=== PATIENT | male | born 1950 | race American Indian/Alaskan Native ===

== ENCOUNTER 2018-02-15 11:10 | Emergency (ER) | payer MEDICARE, OTHER ==
[~2018-02-15] VITALS: Ht 175.3 cm; Wt 113.4 kg
[~2018-02-15 11:10] MED LIST: ALLOPURINOL100 MG PO; BLOOD GLUCOSE1 EACH MC; CLOTRIM ANTIFUN15 GM XX; COL-RITE100 MG PO; COUMADIN5 MG PO; CYCLOBENZAPRINE10 MG PO; DAILY MULTIPLE1 EACH PO; DESONIDE15 GM TP; DIALYVITE V5000 UNIT PO; FOLIC ACID1 MG PO; GLIPIZIDE5 MG PO; HYDROCHLOROTHIA25 MG PO; LEVOTHROID50 MCG PO; LISINOPRIL10 MG PO; METOPROLOL TART25 MG PO; MORPHINE SULFAT15 MG PO; MS CONTIN60 MG PO; NORCO 5-325 TA1 EACH PO; TRIAMCINOLONE A15 G1 TOP; ZOCOR10 MG PO
--- NOTE | 2018-02-15 18:49 | EKG ---
[facility] [address] [place], [place] [address] Signed Sinus tachycardia Possible Left atrial enlargement Left axis deviation Incomplete right bundle branch block Inferior infarct , age undetermined Abnormal ECG No previous ECGs available Confirmed by NEW AKINS MD ([id number]) on 02/15/2018 6:49:13 PM Electronically Signed By: NEW AKINS MD 02/15/18 1849 PATIENT NAME: DENISEJOSE RAFAEL SIDNEY Electrocardiogram DATE OF : 50 PHYSICIAN: NEW AKINS MD REPORT #: [id number] REPORT IS CONFIDENTIAL AND NOT TO BE RELEASED WITHOUT AUTHORIZATION
== END 2018-02-15 13:45 | disposition short-term general hospital (02) ==
LOC: ED 11:10
DX: S12.100A Unspecified displaced fracture of second cervical vertebra, initial encounter for closed fracture (principal); E11.9 Type 2 diabetes mellitus without complications; I10 Essential (primary) hypertension; Z88.0 Allergy status to penicillin; Z88.5 Allergy status to narcotic agent; Z88.2 Allergy status to sulfonamides; Z88.8 Allergy status to other drugs, medicaments and biological substances; Z79.01 Long term (current) use of anticoagulants; Z79.899 Other long term (current) drug therapy; W19.XXXA Unspecified fall, initial encounter; Y93.E1 Activity, personal bathing and showering
CPT/HCPCS: 36415; 70450; 71045; 72125; 80053; 84484; 85025; 85610; 85730; 93005; 93010; 96374; 96375; 99285; J1170; J2405

== ENCOUNTER 2018-11-03 11:08 | Emergency (ER) | payer MEDICARE, OTHER ==
[~2018-11-03] VITALS: Ht 175.3 cm; Wt 112.0 kg
--- OUTSIDE RECORDS SUMMARY | ~2018-11-03 | XMS | Clinical Summary ---
Demographics + + + | Address | [address] | | | [place] [address] | + + + | Home Phone | | + + + | Preferred Language | Unknown | + + + | Marital Status | Single | + + + | Jain Affiliation | BAP | + + + | Race | or | + + + | Ethnic Group | Not or | + + + Author + + + | Author | [facility] | + + + | Organization | [facility] | + + + | Address | Unknown | + + + | Phone | Unavailable | + + + Support + + +---------+ + | Name | Relationship | Address | Phone | + + +---------+ + | LIVIER CISNEROS | ECON | Unknown | | + + +---------+ + | RAJAN ELLIS | ECON | Unknown | Unavailable | + + +---------+ + Care Team Providers + +------+ + | Care Portfolio Architect Name | Role | Phone | + +------+ + | Scooby Mcclure MD | PP | | + +------+ + Source Comments AUTUMN is fully live on both EpicCare Ambulatory and EpicCare InPatient.[facility] Allergies + + + + + + | Active Allergy | Reactions | Severity | Noted | Comments | | | | | Date | | + + + + + + | Codeine | Rash | | 05/23/20 | | | | | | 09 | | + + + + + + | Sitagliptin | Unknown | | 02/23/20 | Per pt's MD | | | | | 18 | | + + + + + + | Metformin | Unknown | | 02/23/20 | Per pt's home MD | | | | | 18 | | + + + + + + | Penicillins | Rash | | 05/23/20 | | | | | | 09 | | + + + + + + | Rosuvastatin | Unknown | | 02/23/20 | Per pt's MD | | | | | 18 | | + + + + + + | Sulfa (Sulfonamide | Diarrhea, Rash | | 12/15/19 | | | Antibiotics) | | | 13 | | + + + + + + | Trimethoprim | Diarrhea | | 12/15/19 | That lasted a week | | | | | 13 | | + + + + + + Current Medications + + +--------+---------+------+------+-------+ | Prescription | Sig. | Disp. | Refills | Star | End | Statu | | | | | | t | Date | s | | | | | | Date | | | + + +--------+---------+------+------+-------+ | MEDICAL MARIJUANA | once daily. 3 grams | | | | | Activ | | | per day | | | | | e | + + +--------+---------+------+------+-------+ | levothyroxine 50 | Take 50 mcg by mouth | | | | | Activ | | mcg Oral tablet | before breakfast. | | | | | e | + + +--------+---------+------+------+-------+ | insulin glargine | Inject 66 Units | | | | | Activ | | 100 unit/mL | under the skin | | | | | e | | subcutaneous | (SUBC) once daily at | | | | | | | solution | bedtime. | | | | | | + + +--------+---------+------+------+-------+ | morphine ER 60 mg | Take 60 mg by mouth | | | | | Activ | | oral tablet extended | every twelve hours. | | | | | e | | release | | | | | | | + + +--------+---------+------+------+-------+ | morphine 15 mg | Take 15 mg by mouth | | | | | Activ | | oral tablet | four times daily as | | | | | e | | | needed. | | | | | | + + +--------+---------+------+------+-------+ | ranitidine 150 mg | Take 150 mg by mouth | | | | | Activ | | oral tablet | two times daily. | | | | | e | + + +--------+---------+------+------+-------+ | | Take 1 tablet by | | | | | Activ | | multivitamin-mineral | mouth once daily. | | | | | e | | s oral tablet | | | | | | | + + +--------+---------+------+------+-------+ | | Take 25 mg by mouth | | | | | Activ | | hydroCHLOROthiazide | once daily. | | | | | e | | 25 mg oral tablet | | | | | | | + + +--------+---------+------+------+-------+ | lisinopril 20 mg | Take 20 mg by mouth | | | | | Activ | | oral tablet | once daily. | | | | | e | + + +--------+---------+------+------+-------+ | folic acid 1 mg | Take 0.5 mg by mouth | | | | | Activ | | oral tablet | once daily. | | | | | e | + + +--------+---------+------+------+-------+ | docusate sodium | Take 100 mg by mouth | | | | | Activ | | 100 mg oral capsule | once daily as | | | | | e | | | needed. | | | | | | + + +--------+---------+------+------+-------+ | cholecalciferol | Take 2,000 Units by | | | | | Activ | | (Vitamin D3) 1,000 | mouth once daily. | | | | | e | | unit oral tablet | | | | | | | + + +--------+---------+------+------+-------+ | loratadine 10 mg | Take 10 mg by mouth | | | | | Activ | | oral tablet | once daily as | | | | | e | | | needed. | | | | | | + + +--------+---------+------+------+-------+ | insulin aspart | Inject under the | | | | | Activ | | U-100 100 unit/mL | skin (SUBC) three | | | | | e | | subcutaneous | times daily before | | | | | | | solution | meals. 4-6 units | | | | | | | | with meal and | | | | | | | | supplemental dose | | | | | | | | based on blood | | | | | | | | glucose | | | | | | + + +--------+---------+------+------+-------+ | acetaminophen 500 | Take 2 tablets by | 30 | 0 | 07/0 | | Activ | | mg oral tablet | mouth every eight | tablet | | 3/20 | | e | | | hours. | | | 18 | | | + + +--------+---------+------+------+-------+ | cholecalciferol | Take 1 tablet by | 30 | 0 | 07/0 | | Activ | | (Vitamin D3) 2,000 | mouth once daily. | tablet | | 4/20 | | e | | unit oral tablet | | | | 18 | | | + + +--------+---------+------+------+-------+ | gabapentin 100 mg | Take 2 capsules by | | | 07/0 | | Activ | | oral capsule | mouth once daily at | | | 3/20 | | e | | | bedtime. | | | 18 | | | + + +--------+---------+------+------+-------+ | HYDROmorphone | Take 1-2 tablets by | 30 | 0 | 07/0 | | Activ | | (DILAUDID) 2 mg oral | mouth every three | tablet | | 3/20 | | e | | tablet | hours as needed for | | | 18 | | | | | severe pain. | | | | | | + + +--------+---------+------+------+-------+ | rivaroxaban 20 mg | Take 1 tablet by | 30 | 0 | 07/2 | | Activ | | oral tablet | mouth once daily | tablet | | 6/20 | | e | | | with breakfast. | | | 18 | | | + + +--------+---------+------+------+-------+ Active Problems + + + | Problem | Noted Date | + + + | Closed fracture of second cervical vertebra (HCC) | 02/15/2018 | + + + | Closed displaced fracture of second cervical vertebra, | 02/15/2018 | | unspecified fracture morphology, initial encounter (HCC) | | + + + | Right shoulder pain | 11/08/2014 | + + + | Heterotopic ossification of bone | 03/14/2014 | + + + | Heterotopic ossification | 03/14/2014 | + + + | Hypertension | 03/16/2013 | + + + | Diabetes mellitus (HCC) | 03/16/2013 | + + + | Chronic pain | 03/16/2013 | + + + | Pruritus | 03/16/2013 | + + + | Cholecystitis | 03/10/2013 | + + + | Ventral hernia | 03/10/2013 | + + + | Osteoarthrosis, hip | 05/23/2009 | + + + + + | Overview: Right hip | + + + + + | Ankylosing spondylitis (HCC) | 05/23/2009 | + + + | Antiphospholipid antibody syndrome (HCC) | | + + + | Difficult intubation | | + + + + + | Overview: glidescope used for intubation | + + Immunizations + + + + | Name | Dates Previously Given | Next Due | + + + + | Ppd (tuberculin | 05/18/2013, 05/16/2013 | | | Purified Protein | | | | Derivative) | | | + + + + Family History + + +------+ + | Medical History | Relation | Name | Comments | + + +------+ + | Heart Disease | Father | | | + + +------+ + | Cancer | Mother | | mesothelioma | + + +------+ + | Cancer | Other | | no colon cancer | + + +------+ + | GI | Neg Hx | | no IBD | + + +------+ + + +------+ + + | Relation | Name | Status | Comments | + +------+ + + | Father | | | CAD | + +------+ + + | Mother | | | mesothelioma | + +------+ + + | Other | | | | + +------+ + + Social History + + + +--------+ + | Tobacco Use | Types | Packs/Day | Years | Date | | | | | Used | | + + + +--------+ + | Former Smoker | Cigarettes | 0.5 | 2 | Quit: 12/14/1981 | + + + +--------+ + + +---+---+---+ | Smokeless Tobacco: | | | | | Never Used | | | | + +---+---+---+ + + | Tobacco Cessation: Counseling Given: Yes | + + + + +---------+ + | Alcohol Use | Drinks/We | oz/Week | Comments | | | ek | | | + + +---------+ + | Yes | | | occasional use | + + +---------+ + + + + | Sex Assigned at | Date Recorded | | | | + + + | Not on file | | + + + Last Filed Vital Signs + + + + | Vital Sign | Reading | Time Taken | + + + + | Blood Pressure | 146/63 | 04/06/2018 11:21 AM PDT | + + + + | Pulse | 78 | 04/06/2018 11:21 AM PDT | + + + + | Temperature | 36.6 C (97.9 F) | 02/22/2018 4:42 PM PDT | + + + + | Respiratory Rate | 16 | 02/22/2018 4:42 PM PDT | + + + + | Oxygen Saturation | 100% | 02/22/2018 4:42 PM PDT | + + + + | Inhaled Oxygen | - | - | | Concentration | | | + + + + | Weight | 110.2 kg (243 lb) | 04/06/2018 11:21 AM PDT | + + + + | Height | 177.8 cm (5' 10") | 04/06/2018 11:21 AM PDT | + + + + | Body Mass Index | 34.87 | 04/06/2018 11:21 AM PDT | + + + + Plan of Treatment + + + + + | Health Maintenance | Due Date | Last Done | Comments | + + + + + | Influenza (Flu) | | | | | vaccination (#1) | 8 | | | + + + + + | Pneumococcal (Adult) | | 01/12/2018 | | | (2 of 2 - PPSV23) | 9 | | | + + + + + Implants + +------+--------+ +--------+--------+--------+ | Implanted | Type | Area | Manufacture | Device | Expira | Model | | | | | r | | tion | / | | | | | | Identi | Date | Serial | | | | | | fier | | / Lot | + +------+--------+ +--------+--------+--------+ | Continuum Acetabular System | | Left: | MARI | | 04/22/ | 5 | | Mje Kevin Plug - | | Hip | | | 2021 | - | | [id number]: Qty: 1 on | | | | | | / | | 05/09/2012 by Jorge Walker, | | | | | | /[id number] | | MD | | | | | | 905 | + +------+--------+ +--------+--------+--------+ | Trabecular Metal Shell | | Left: | MARI | | 03/21/ | | | 58mImplanted: Qty: 1 on | | Hip | | | 2021 | 7058- | | 05/09/2012 by Jorge Walker, | | | | | | 01 / | | MD | | | | | | /[id number] | | | | | | | | 366 | + +------+--------+ +--------+--------+--------+ | Polyethelene Neutral | | Left: | MARI | | 01/19/ | 00-5 | | LinerImplanted: Qty: 1 on | | Hip | | | 2016 | - | | 05/09/2012 by Jorge Walker, | | | | | | 36 / | | MD | | | | | | /[id number] | | | | | | | | 117 | + +------+--------+ +--------+--------+--------+ | Trabecular Metal Femoral Stem | | Left: | MARI | | 02/19/ | 00-786 | | 13mmImplanted: Qty: 1 on | | Hip | | | 2021 | 013- | | 05/09/2012 by Jorge Walker, | | | | | | 20 / | | MD | | | | | | /[id number] | | | | | | | | 333 | + +------+--------+ +--------+--------+--------+ | Femoral Head Ceramic | | Left: | MARI | | 09/21/ | 00-877 | | 36mm/-3.5Implanted: Qty: 1 on | | Hip | | | 2021 | 5-036- | | 05/09/2012 by Jorge Walker | | | | | | 01 / | | MD Royal | | | | | | /[id number] | | | | | | | | 43 | + +------+--------+ +--------+--------+--------+ | Mari Total Hip Cap | | | | | | | | ChargeImplanted: Qty: 1 on | | | | | | | | 05/09/2012 | | | | | | | + +------+--------+ +--------+--------+--------+ | Stem Tm Primary 13mm Extended | | Right: | MARI | | 11/20/ | 00-786 | | - [id number]: Qty: 1 | | Hip | | | 2022 | 4-013- | | on 03/12/2014 by Denise, | | | | | | 20 / | | Jorge Paige MD | | | | | | /[id number] | | | | | | | | 757 | + +------+--------+ +--------+--------+--------+ | Femoral Head Biolox Delta | | Right: | MARI | | 06/22/ | 00-877 | | 36mm -3.5mm - | | Hip | | | 2023 | 5-036- | | [id number]: Qty: 1 on | | | | | | / | | 03/12/2014 by Jorge Walker | | | | | | /[id number] | | MD Royal | | | | | | 12 | + +------+--------+ +--------+--------+--------+ | Tm Por St/Tm Cup/ Xlpe Ln/Cer | | | | | | | | HdImplanted: Qty: 1 on | | | | | | /98-00 | | 03/12/2014 | | | | | | 01-426 | | | | | | | | -03 / | + +------+--------+ +--------+--------+--------+ | Continuum Acetabular System | | Right: | MARI | | 02/19/ | 00-875 | | Shay Moon - | | Hip | | | 2023 | 7-000- | | [id number]: Qty: 1 on | | | | | | / | | 03/12/2014 by Jorge Walker | | | | | | /[id number] | | MD Royal | | | | | | 971 | + +------+--------+ +--------+--------+--------+ | Continuum Acetabular System | | Right: | MARI | | / | 00-875 | | Trabecular Metal Shell With | | Hip | | | 4 | 7-058- | | Cluster Holes 58mm Ll - | | | | | | 01 / | | [id number]: Qty: 1 on | | | | | | /56108 | | 03/12/2014 by Jorge Walker | | | | | | 427 | | MD Royal | | | | | | | + +------+--------+ +--------+--------+--------+ | Continuum Longevity Neutral | | Right: | MARI | | 09/22/ | 8751-1 | | Liner Ll 36 X 58 - | | Hip | | | 2018 | 3-36 / | | [id number]: Qty: 1 on | | | | | | | | 03/12/2014 by Jorge Walker | | | | | | /[id number] | | MD Royal | | | | | | 246 | + +------+--------+ +--------+--------+--------+ | 50 Mm PlateImplanted: Qty: 1 | | N/A: | NANCI & | | | 04.615 | | on 02/18/2018 by Pablito Barroso | | Spine | NANCI | | | .601 / | | MD Soha | | | DEPKENDAL | | | / | + +------+--------+ +--------+--------+--------+ | 240 Mm RodsImplanted: Qty: 2 | | N/A: | NANCI & | | | 04.615 | | on 02/18/2018 by Pablito Barroso | | Spine | NANCI | | | .655 / | Kaylyn Hoyos MD | | | MAVIS | | | / | + +------+--------+ +--------+--------+--------+ | Screw Bone 4.5mm 10mm | | N/A: | SYNTHES [place] | | | 04.601 | | Titanium Occipitocervical | | Spine | | | | .110 / | | Spine Nonsterile Fusion | | | | | | / | | System - [id number]: | | | | | | | | Qty: 1 on 02/18/2018 by | | | | | | | | Pablito Barroso MD | | | | | | | + +------+--------+ +--------+--------+--------+ | Screw Bone 4.5mm 12mm | | N/A: | SYNTHES [place] | | | 04.601 | | Titanium Occipitocervical | | Spine | | | | .112 / | | Spine Nonsterile Fusion | | | | | | / | | System - [id number]: | | | | | | | | Qty: 1 on 02/18/2018 by | | | | | | | | Pablito Barroso MD | | | | | | | + +------+--------+ +--------+--------+--------+ | Screw Bone 4.5mm 14mm | | N/A: | SYNTHES [place] | | | 04.601 | | Titanium Occipitocervical | | Spine | | | | .114 / | | Spine Nonsterile Fusion | | | | | | / | | System - [id number]: | | | | | | | | Qty: 1 on 02/18/2018 by | | | | | | | | Pablito Barroso MD | | | | | | | + +------+--------+ +--------+--------+--------+ | Screw Bone 4.5mm 8mm Synapse | | N/A: | SYNTHES [place] | | | 04.614 | | Titanium Spine Lock | | Spine | | | | .508 / | | Nonsterile - | | | | | | / | | [id number]: Qty: 2 on | | | | | | | | 02/18/2018 by Pablito Barroso | | | | | | | | MD Soha | | | | | | | + +------+--------+ +--------+--------+--------+ | Small ConnectorImplanted: | | N/A: | NANCI & | | | 04.615 | | Qty: 2 on 02/18/2018 by | | Bruce | NANCI | | | .538 / | | Pablito Barroso MD | | | DEPUY | | | / | + +------+--------+ +--------+--------+--------+ | Large ConnectorImplanted: | | N/A: | NANCI & | | | 04.615 | | Qty: 2 on 02/18/2018 by | | Bruce | NANCI | | | .565 / | | Pablito Barroso MD | | | DEPUY | | | / | + +------+--------+ +--------+--------+--------+ | Sealant Hemostatic Floseal | | N/A: | NGUYEN | | 07/20/ | [id number] | | Matrix Needle Free Adapter | | Spine | HEALTHCARE | | 2019 | 8 / | | 5ml - [id number]: | | | | | | /HA180 | | Qty: 1 on 02/18/2018 by | | | | | | 573 | | Pablito Barroso MD | | | | | | | + +------+--------+ +--------+--------+--------+ Results Not on filefrom Last 3 Months Insurance + +--------+ +--------+ + + | Payer | Benefi | Subscriber | Type | Phone | Address | | | t Plan | ID | | | | | | / | | | | | | | Group | | | | | + +--------+ +--------+ + + | MEDICARE | MEDICA | xxxxxxxxxx | Medica | [phone] | [address] | | | RE A & | | re | [phone] | [place] [address] | | | B | | | | | + +--------+ +--------+ + + | [place]ICAID [place] | OHP | xxxxxxxx | Medica | [phone] | [address] [address] | | | PLUS | | id | [phone] | [place] [address] | | | OPEN | | | | | | | CARD | | | | | + +--------+ +--------+ + + | [facility] | | xxxx | Agency | | | | SERVICE | | | | | | | | HEALTH | | | | | | | | | | | | | | SERVIC | | | | | | | E | | | | | + +--------+ +--------+ + + + +--------+ +--------+ + + | Guarantor Name | Accoun | Relation to | Date | Phone | Billing Address | | | t Type | Patient | of | | | | | | | | | | + +--------+ +--------+ + + | JORGE L CISNEROS | Person | Self [birth year] | Home: | [address] | | | al/Fam | | 1950 | [phone] | [place] [address] | | | blaire | | | [phone] | | + +--------+ +--------+ + + | JORGE L CISNEROS | Agency | Self | [birth year] | Home: | [address] | | | | | 1950 | [phone] | [place] [address] | | | | | | [phone] | | + +--------+ +--------+ + +
--- OUTSIDE RECORDS SUMMARY | ~2018-11-03 | XMS | Clinical Summary ---
Demographics + + + | Address | [address] | | | [place] [address] | + + + | Home Phone | | + + + | Preferred Language | Unknown | + + + | Marital Status | Single | + + + | Orthodoxy Affiliation | BAP | + + + [...] Team Providers + +------+ + | Care Maintenance Data Analyst Name | Role | Phone | + +------+ + | Scooby Mcclure MD | PP | | + +------+ + Source Comments AUTUMN is fully live on both EpicCare Ambulatory and EpicCare InPatient.[facility] Allergies + + + + + + [...] | | 2021 | - | | [id number]: Qty: 1 on | | | | | | / | | 05/09/2012 by Jorge Walker, | | | | | | /11601 | | MD | | | | [...] MD | | | | | | /76628 | | | | | | | [...] MD | | | | | | /82281 | | | | | | | [...] MD | | | | | | /54390 | | | | | | | [...] Royal | | | | | | /[address] | | | | | | | [...] | 11/20/ | 00-786 | | - [id number]: Qty: 1 | | Hip | | | 2022 | 4-013- | | on 03/12/2014 by Denise, | | | | | | 20 / | | Jorge Paige MD | | | | | | /[address]82 | | | | | | | | 757 | + +------+--------+ +--------+--------+--------+ | Femoral Head Biolox Delta | | Right: | MARI | | 06/22/ | 00-877 | | 36mm -3.5mm - | | Hip | | | 2023 | 5-036- | | [id number]: Qty: 1 on | | | | | | / | | 03/12/2014 by Jorge Walker | | | | | | /76998 | | MD Royal | | | [...] | | 2023 | 7-000- | | [id number]: Qty: 1 on | | | | | | / | | 03/12/2014 by Jorge Walker | | | | | | /39004 | | MD Royal | | | | | | 971 | + +------+--------+ +--------+--------+--------+ | Continuum Acetabular System | | Right: | MARI | | / | 00-875 | | Trabecular Metal Shell With | | Hip | | | 4 | 7-058- | | Cluster Holes 58mm Ll - | | | | | | 01 / | | [id number]: Qty: 1 on | | | | | | /[id number] | | 03/12/2014 by Jorge Walker | | | | | | 427 | | MD Royal | | | | | | | + +------+--------+ +--------+--------+--------+ | Continuum Longevity Neutral | | Right: | MARI | | 09/22/ | 8751-1 | | Liner Ll 36 X 58 - | | Hip | | | 2018 | 3-36 / | | [id number]: Qty: 1 on | | | | | | | | 03/12/2014 by Jorge Walker | | | | | | /12560 | | MD Royal | | | | | | 246 | + +------+--------+ +--------+--------+--------+ | 50 Mm PlateImplanted: Qty: 1 | | N/A: | ANNCI & | | | 04.615 | | [...] | | / | | System - [id number]: | | | | | | | [...] | | / | | System - [id number]: | | | | | | | [...] | | / | | System - [id number]: | | | | | | | [...] | | | | / | | [id number]: Qty: 2 on | | | | [...] N/A: | NGUYEN | | 07/20/ | [id number] | | Matrix Needle Free Adapter | | Spine | HEALTHCARE | | 2019 | 8 / | | 5ml - [id number]: | | | | | | /HA180 [...] | re | [phone] | [place] [address] | | | B | | | | | + +--------+ +--------+ + + | MEDICAID [place] | OHP | xxxxxxxx | Medica | [phone] | [address] [address] | | | PLUS | | id | [phone] | [place] [address] | | | OPEN | | | | | | | CARD | | | | | + +--------+ +--------+ + + | [facility] | | xxxx | Agency | | [...] | 1950 | [phone] | [place] [address] | | | [place] | | | [phone] | | + +--------+ +--------+ + + | JORGE L CISNEROS | Agency | Self | [birth year] | Home: | [address] | | | | | 1950 | [phone] | [place] [address] | | | | | | [address] | | + +--------+ +--------+ + +
--- OUTSIDE RECORDS SUMMARY | ~2018-11-03 | XMS | Clinical Summary ---
Demographics + + + | Address | [address] | | | [place] [address] | + + + | Home Phone | | + + + | Preferred Language | Unknown | + + + | Marital Status | Single | + + + | Latter Day Affiliation | 1041 | + + + | Race | Unknown | + + + | Ethnic Group | Unknown | + + + Author + + + | Author | [facility] | + + + | Organization | [facility] | + + + | Address | Unknown | + + + | Phone | Unavailable | + + + Support + + +---------+ + | Name | Relationship | Address | Phone | + + +---------+ + | Di Cisneros | ECON | Unknown | | + + +---------+ + Care Team Providers + +------+ + | Care Audiovisual Lead Technician Name | Role | Phone | [...] Noted Date | + + + | Moderate dementia [...] mass | 01/07/2017 | + + + Social History + +-------+ [...] + + + | Blood Pressure | 156/74 | 05/05/2018 10:15 AM PDT | + + + + | Pulse | 71 | 05/05/2018 10:15 AM PDT | + + + + | Temperature | 36.6 C (97.8 F) | 01/22/2017 11:46 AM PDT | + + + + | Respiratory Rate | 18 | 01/22/2017 11:46 AM PDT | + + + + | Oxygen Saturation | 97% | 05/05/2018 10:15 AM PDT | + + + + | Inhaled Oxygen | - | - | | Concentration | | | + + + + | Weight | 116.8 kg (257 lb 6.4 | 05/05/2018 10:15 AM PDT | | | oz) | | + + + + | Height | 177.8 cm (5' 10") | 05/05/2018 10:15 AM PDT | + + + + | Body Mass Index | 36.93 | 05/05/2018 10:15 AM PDT | + + + + Plan of Treatment +--------+---------+ + + + | Date | Type | Specialty | Care Team | Description | +--------+---------+ + + + | 11/09/ | Office | | [facility] | | | 2018 | Visit | | MD [address] | | | | | | Celia Kearns | | | | | | [facility] [place] [address] | | | | | | [phone] | | | | | | | | +--------+---------+ + + + + + + + [...] Vaccine: Influenza | | | | | (#1) | 8 | | | + [...] | 10/22/ | 8103.0 | | - [id number]: Qty: 1 | | | MEDICAL - | | 2019 | 210S / | | on 01/09/2017 by Kadi, | | | GLBU | | | | | Mendez Nicole [place] | | | | | | /[id number] | | | | | | | | [id number] | + +------+------+ +--------+--------+--------+ | Quartex Lordotic [...] GLOBUS | | | 8115.0 | | [id number] - SnaImplanted: | | | MEDICAL - [...] | | 10/05/ | 8115.0 | | [id number] - | | | MEDICAL - | | 2019 | 120S / | | [id number]: Qty: 1 on | | | GLBU | | | | | 01/09/2017 by Kadi, | | | | | | /[id number] | | Mendez Nicole MD | | | | | | 4CG | + +------+------+ +--------+--------+--------+ | Graft Duragen 1x1in - | | | INTEGRA | | / | ID-110 | | [id number]: Qty: 1 on | | | LIFESCIENCE | | 2020 | 1 / | | 01/09/2017 by Kadi, | | | S [place] - | | | /[id number] | | Mendez Nicole MD | | [...] +------+-------+ + | MEDICARE | MEDICA | [id number] | | | [address] | | | RE | | | | [place] [address] | | | IP-OP | | | | | + +--------+ +------+-------+ + | MEDICAID | MEDICA | [id number] | | | [address] | | | [place] | | | | [place] | | | [place] | | | | [phone] | + +--------+ +------+-------+ + | [facility] | YELLOW | [id number] | | | | | PLANS | [...] WAY | | | al/Fam | | 1950 | [phone] | [place] [address] | | | blaire | | | [phone] | | + +--------+ +--------+ + +
--- OUTSIDE RECORDS SUMMARY | ~2018-11-03 | XMS | Clinical Summary ---
Demographics + + + | Address | [address] | | | [place] [address] | + + + | Home Phone | | + + + | Preferred Language | Unknown | + + + | Marital Status | Unknown | + + + | Orthodoxy Affiliation | Unknown | + + + | Race | Unknown | + + + | Ethnic Group | Unknown | + + + Author + + + | Author | [facility] | | | and [facility] | + + + | Organization | [facility] | | | and [place] | + + + | Address | Unknown | + + + | Phone | Unavailable | + + + Care Team Providers + +------+ + | Care Finishing And Shipping Supervisor Name | Role | Phone | + +------+ + PP | Unavailable | + +------+ + Allergies Not on File Current Medications Not on file Active Problems Not [...] on file | | + + + Plan of Treatment + [...]
--- OUTSIDE RECORDS SUMMARY | ~2018-11-03 | XMS | Clinical Summary ---
Demographics + + + | Address | [address] | | | [place] [address] | + + + | Home Phone | | + + + | Preferred Language | Unknown | + + + | Marital Status | Single | + + + | Christian Affiliation | 1041 | + + + | Race | Unknown | + + + | Ethnic Group | Unknown | + + + Author + + + | Author | [facility] | + + + | Organization | [facility] | + + + | Address | Unknown | + + + | Phone | Unavailable | + + + Support + + +---------+ + | Name | Relationship | Address | Phone | + + +---------+ + | Di Cisneros | ECON | Unknown | | + + +---------+ + Care Team Providers + +------+ + | Care Pool Hall Inspector Name | Role | Phone | [...] Kearns | | | | | | [place] [address] | | | | | | [phone] | | | | | | | [...] | 10/22/ | 8103.0 | | - [id number]: Qty: 1 | | | MEDICAL - | | 2019 | 210S / | | on 01/09/2017 by Kadi, | | | GLBU | | | | | Mendez Nicole MD | | | | | | /[id number] | | | | | | | | [id number] | + +------+------+ +--------+--------+--------+ | Quartex Lordotic [...] GLOBUS | | | 8115.0 | | [id number] - SnaImplanted: | | | MEDICAL - [...] | | 10/05/ | 8115.0 | | [id number] - | | | MEDICAL - | | 2019 | 120S / | | [id number]: Qty: 1 on | | | GLBU | | | | | 01/09/2017 by Kadi, | | | | | | /[id number] | | Mendez Nicole MD | | | | | | 4CG | + +------+------+ +--------+--------+--------+ | Graft Duragen 1x1in - | | | INTEGRA | | / | ID-110 | | [id number]: Qty: 1 on | | | LIFESCIENCE | | 2020 | 1 / | | 01/09/2017 by Kadi, | | | [place] - | | | /[id number] | | Mendez Nicole MD | | [...] +------+-------+ + | MEDICARE | MEDICA | [id number] | | | [address] | | | RE | | | | [place] [phone] | | | IP-OP | | | | | + +--------+ +------+-------+ + | MEDICAID | MEDICA | [id number] | | | [address] | | | ID | | | | [place] | | | [place] | | | | [phone] | + +--------+ +------+-------+ + | [facility] | YELLOW | [id number] | | | | | PLANS | [...] | 1950 | [phone] | [place] [address] | | | [place] | | | [phone] | | + +--------+ +--------+ + +
--- OUTSIDE RECORDS SUMMARY | ~2018-11-03 | XMS | Clinical Summary ---
Demographics + + + | Address | [address] | | | [place] [address] | + + + | Home Phone | | + + + | Preferred Language | Unknown | + + + | Marital Status | Unknown | + + + | Rastafarian Affiliation | Unknown | + + + | Race | Unknown | + + + | Ethnic Group | Unknown | + + + Author + + + | Author | [facility] | | | and [facility] | + + + | Organization | [facility] | | | and [place] | + + + | Address | Unknown | + + + | Phone | Unavailable | + + + Care Team Providers + +------+ + | Care Nib Finisher Name | Role | Phone | + [...]
[~2018-11-03 11:08] MED LIST changes: +CLARITIN10 M2 PO; +CLINDAMYCIN HC300 MG PO; +D-20002000 UNIT PO; -DIALYVITE V5000 UNIT PO; +GABAPENTIN100 MG PO; +LANTUS SOL100 UNIT/1 SUB-Q; +LISINOPRIL20 MG PO; +MORPHINE SULFAT60 MG PO; +NOVOLOG FL100 UNIT/1 SUB-Q; +XARELTO20 MG PO
--- OUTSIDE RECORDS SUMMARY | 2018-11-03 11:12 | XMS ---
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 - Has Care Guidelines - [facility] - 2 Visits in 30 Days CARE PROVIDERS Delia Melvin Chief Architect/Multimedia Authoring Specialist 06/26/2016-Current PHONE: [phone] QI HAIR [facility] 10/31/2018-Current PHONE: Unknown Delia Melvin Primary Care 06/26/2016-Current PHONE: [phone] [facility] HOME Case or Hr Intern 01/26/2017-Current HEALTH AND HOSPICE PHONE: [phone] DR QI HAIR Primary Care 02/20/2017-Current PHONE: [phone] [facility] has no Care Guidelines for this patient. Care History Medical/Surgical 10/31/2018 [facility] \T\middot;\T\nbsp; PATIENT IS A [employer] MEMBER. \T\middot;\T\nbsp; PLEASE REFER PATIENT TO [facility] FOR NON EMERGENT MEDICAL NEEDS. \T\middot;\ T\nbsp; [facility] CAN SEE PATIENTS SAME DAY FOR APTS IF PATIENT CALLS FIRST THING IN THE MORNING. E.D. VISIT COUNT (12 MO.) 1 [facility] 3 [facility] TOTAL 4 NOTE: Visits indicate total known visits. ED/UCC VISIT TRACKING (12 MO.) 11/03/2018 11:09 [facility] TYPE: Emergency COMPLAINT: - L ARM NUMBNESS 10/30/2018 15:43 [facility] TYPE: Emergency COMPLAINT: - WEAKNESS/CONFUSION 02/15/2018 15:32 [facility] TYPE: Emergency DIAGNOSES: 51505. Trauma 90717. Unspecified displaced fracture of second cervical vertebra, initial encounter for closed fracture 02/15/2018 11:10 [facility] [place] TYPE: Emergency COMPLAINT: - FALL DIAGNOSES: - Unspecified fall, initial encounter - Allergy status to other drugs, medicaments and biological substances status - Allergy status to narcotic agent status - Allergy status to penicillin - Essential (primary) hypertension - Unspecified displaced fracture of second cervical vertebra, initial encounter for closed fracture - Activity, personal bathing and showering - Type 2 diabetes mellitus without complications - Other fdc (current) drug therapy - Cervicalgia - 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 - Allergy status to sulfonamides status INPATIENT VISIT TRACKING (12 MO.) 10/30/2018 15:44 [facility] [place] TYPE: Medical Surgical COMPLAINT: - PNEUMONIA DIAGNOSES: - Hypothyroidism, unspecified - 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 Unspecified displaced fracture of second cervical vertebra, initial encounter for closed fracture [email or web address]
== END 2018-11-03 12:32 | disposition home or self-care (01) ==
LOC: ED 11:08
DX: I10 Essential (primary) hypertension (principal); E11.9 Type 2 diabetes mellitus without complications; E03.9 Hypothyroidism, unspecified; Z86.73 Personal history of transient ischemic attack (TIA), and cerebral infarction without residual deficits; Z88.0 Allergy status to penicillin; Z88.5 Allergy status to narcotic agent; Z88.2 Allergy status to sulfonamides; Z88.1 Allergy status to other antibiotic agents; Z88.8 Allergy status to other drugs, medicaments and biological substances; Z79.899 Other long term (current) drug therapy; Z79.4 Long term (current) use of insulin
CPT/HCPCS: 99283

== ENCOUNTER 2019-01-28 15:55 | Emergency (ER) | payer MEDICARE, OTHER ==
[~2019-01-28] VITALS: Ht 175.3 cm; Wt 113.4 kg
--- OUTSIDE RECORDS SUMMARY | ~2019-01-28 | XMS | Encounter Summary ---
Demographics + + + | Address | [address] | | | [place] [address] | + + + | Home Phone | | + + + | Preferred Language | Unknown | + + + | Marital Status | Single | + + + | Yazdanism Affiliation | BAP | + + + | Race | or | + + + | Ethnic Group | Not or | + + + Author + + + | Author | [facility] | + + + | Organization | [facility] | + + + | Address | [...] Team Providers + +------+ + | Care Gauge Controller Name | Role | Phone | + +------+ + | Scooby Mcclure MD | PCP | | + +------+ + Reason for Referral Physical Therapy (Routine) + +--------+ + + + + | Status | Reason | Specialty | Diagnoses / | Referred By | Referred To | | | | | Procedures | Contact | Contact | + +--------+ + + + + | New Request | | Physical | Diagnoses | Crafts, | | | | | Therapy | Closed | Glenda Hodge PA-C | | | | | | displaced | [address] | | | | | | fracture of | [address] | | | | | | second | [address] | | | | | | cervical | [address] | | | | | | vertebra, | [place], [place] | | | | | | unspecified | [address] | | | | | | fracture | Phone: | | | | | | morphology, | [phone] | | | | | | initial | Fax: | | | | | | encounter | [phone] | | | | | | ([facility]) | | | | | | | Procedures | | | | | | | PHYSICAL | | | | | | | THERAPY | | | | | | | REFERRAL | | | + +--------+ + + + + Reason for Visit +--------+ + | Reason | Comments | +--------+ + | Trauma | | +--------+ + AUTH/CERT +--------+--------+ + + + + | Status | Reason | Specialty | Diagnoses / | Referred By | Referred To | | | | | Procedures | Contact | Contact | +--------+--------+ + + + + | | | | | | | +--------+--------+ + + + + Encounter Details +--------+ + + + + | Date | Type | Department | Care Team | Description | +--------+ + + + + | 02/15/ | Hospital | [facility] [address] | [place], | | | 2018 - | Encounter | [address] | [address] | | | | | [id number] [facility] | [address] | | | 02/22/ | | HOSPITAL [place], | [place], [place] | | | 2018 | | [place] [address] | [address] | | | | | [phone] | [phone] | | | | | | | | | | | | Deandre Austin MD | | | | | | [address] | | | | | | [address] | | | | | | [place], [place] | | | | | | [address] | | | | | | [phone] | | | | | | | | +--------+ + + + + Social History + + + [...] Comments | + + +---------+ + | Yes [...] + + documented as of this encounter Last Filed Vital Signs + + + + + | Vital Sign | Reading | Time Taken | Comments | + + + + + | Blood Pressure | 167/52 | 02/22/2018 4:42 PM | | | | | PDT | | + + + + + | Pulse | 69 | 02/22/2018 4:42 PM | | | | | PDT | | + + + + + | Temperature | 36.6 C (97.9 F) | 02/22/2018 4:42 PM | | | | | PDT | | + + + + + | Respiratory Rate | 16 | 02/22/2018 4:42 PM | | | | | PDT | | + + + + + | Oxygen Saturation | 100% | 02/22/2018 4:42 PM | | | | | PDT | | + + + + + | Inhaled Oxygen | - | - | | | Concentration | | | | + + + + + | Weight | 114.5 kg (252 lb 6.8 | 02/15/2018 5:05 PM | | | | oz) | PDT | | + + + + + | Height | 177.8 cm (5' 10") | 02/15/2018 5:05 PM | | | | | PDT | | + + + + + | Body Mass Index | 36.22 | 02/15/2018 5:05 PM | | | | | PDT | | + + + + + documented in this encounter Functional Status + + + + | Functional Status | Response | Date of Assessment | + + + + | Because of a physical, mental, or emotional | No | 02/21/2018 | | condition, do you have serious difficulty | | | | doing errands alone such as visiting the | | | | doctor? | | | + + + + + + + + | Cognitive Status | Response | Date of Assessment | + + + + | Because of a physical, mental, or emotional | No | 02/21/2018 | | condition, do you have serious difficulty | | | | concentrating, remembering, or making | | | | decisions? (5 years old or older) | | | + + + + documented as of this encounter Discharge Summaries David Anderson MD - 02/22/2018 4:13 PM PDTFormatting of this note might be different from t he original. INPATIENT PHYSICIAN DISCHARGE SUMMARY Author: David Anderson MD Attending Physician: Deandre Austin MD PCP: Scooby Mcclure MD Admission Date: 02/15/2018 Discharge Date: 22 Feb 2018 Diagnoses Principal Final Diagnosis: Bilateral C2 posterior element fractures and 8 mm anterolisthesis of C2 on C3 Brief Hospital Course Jose Rafael Cisneros is a 67 y.o. male admitted on 02/15/2018 for the injuries described above. Th e inpatient stay related to this took an uncomplicated course and the patient was followed c losely by the attending providers, resident providers, and medical/nursing staff. The patient was admitted to the hospital for convalescent care. Pain control was managed w ith medication. The patient made appropriate gains toward activity and functional goals whi le an inpatient. While on the hospital floor, the patient tolerated oral intake sufficient to maintain nutri tion and hydration. The patient was felt appropriate for discharge to home on 02/22/2018, and the patient and/or family members agree with this course of action. Medications: Medication List START taking these medications acetaminophen 500 mg Tab Commonly known as: TYLENOL Take 2 tablets by mouth every eight hours. HYDROmorphone 2 mg Tab Commonly known as: DILAUDID Take 1-2 tablets by mouth every three hours as needed for severe pain. CHANGE how you take these medications * cholecalciferol (Vitamin D3) 1,000 unit Tab Commonly known as: VITAMIN D-3 Take 2,000 Units by mouth once daily. What changed: Another medication with the same name was added. Make sure you understand how and when t o take each. Another medication with the same name was removed. Continue taking this medication, and follow the directions you see here. * Cholecalciferol (Vitamin D3) 2,000 unit Tab Take 1 tablet by mouth once daily. What changed: You were already taking a medication with the same name, and this prescripti on was added. Make sure you understand how and when to take each. Replaces: Cholecalciferol (Vitamin D3) 5,000 unit Cap * rivaroxaban 15 mg Tab Commonly known as: aka XARELTO Take 1 tablet by mouth two times daily with meals for 21 days. What changed: medication strength how much to take when to take this * rivaroxaban 20 mg Tab Commonly known as: aka XARELTO Take 1 tablet by mouth once daily with breakfast. Start taking on: 03/17/2018 What changed: You were already taking a medication with the same name, and this prescripti on was added. Make sure you understand how and when to take each. * This list has 4 medication(s) that are the same as other medications prescribed for you. Read the directions carefully, and ask your doctor or other care provider to review them wit h you. CONTINUE taking these medications docusate sodium 100 mg Cap Commonly known as: COLACE Take 100 mg by mouth once daily as needed. folic acid 1 mg Tab Commonly known as: FOLVITE Take 0.5 mg by mouth once daily. gabapentin 100 mg Cap Commonly known as: NEURONTIN Take 2 capsules by mouth once daily at bedtime. hydroCHLOROthiazide 25 mg Tab Commonly known as: HYDRODIURIL Take 25 mg by mouth once daily. insulin aspart U-100 100 unit/mL Soln Commonly known as: NOVOLOG Inject under the skin (SUBC) three times daily before meals. 4-6 units with meal and supple mental dose based on blood glucose insulin glargine 100 unit/mL Soln Commonly known as: LANTUS Inject 66 Units under the skin (SUBC) once daily at bedtime. levothyroxine 50 mcg Tab Take 50 mcg by mouth before breakfast. lisinopril 20 mg Tab Commonly known as: PRINIVIL Take 20 mg by mouth once daily. loratadine 10 mg Tab Commonly known as: CLARITIN Take 10 mg by mouth once daily as needed. MEDICAL MARIJUANA once daily. 3 grams per day * morphine ER 60 mg Tber Commonly known as: MS CONTIN Take 60 mg by mouth every twelve hours. * morphine 15 mg Tab Commonly known as: MS IR Take 15 mg by mouth four times daily as needed. multivitamin-minerals Tab Take 1 tablet by mouth once daily. ranitidine 150 mg Tab Commonly known as: ZANTAC Take 150 mg by mouth two times daily. * This list has 2 medication(s) that are the same as other medications prescribed for you. Read the directions carefully, and ask your doctor or other care provider to review them wit h you. STOP taking these medications Cholecalciferol (Vitamin D3) 5,000 unit Cap Commonly known as: D-3-5 Replaced by: Cholecalciferol (Vitamin D3) 2,000 unit Tab You also have another medication with the same name that you need to continue taking as ins tructed. Diet Regular Regular diet- There are no restrictions to your diet. You may eat or drink whatever you pr efer, though healthy food choices are recommended. Activity No bending, twisting, lifting > 10 lbs x 6 weeks Pain Management WHAT YOU NEED TO KNOW ABOUT YOUR PAIN MANAGEMENT: We understand that you may have pain due to your injury or illness. Our goal is to manage y our pain so you can recover and function as independently as possible. It is impossible for us to make you pain-free. Pain medications can have dangerous side effects including but not limited to impaired driving, severe constipation, opioid addiction, and . Your pain management will need to be tailored to your needs. All patients experience pain d ifferently. We will work with you to find which combination of pain medications works best f or you. Because most acute pain from surgery or injury will go away rapidly, most patients w ill not require any other pain medication besides Tylenol (acetaminophen) beyond 2 weeks aft er injury. When you are discharged from the hospital we will give you a prescription for opioid pain m edication based on your pain medication usage in the hospital. We make our best estimate of how much pain medication you will need until you are evaluated at your first clinic visit (e ither in Trauma clinic or that of your primary care provider (PCP) if you live a distance aw ay.) Our goal is to decrease the dose of your pain medication as rapidly and safely as possi ble. Our guidelines for prescribing pain medications are described below: 1. Most patients do not require opioid pain medication for more than 1-2 weeks. 2. The Trauma Service only prescribes opioid pain medication for a total of 30 days from t he time of injury or illness. After 30 days, you will be expected to seek care from your [facility] provider. If you do not have a primary care provider, we encourage you to [facility] one immediately. 3. We will taper your opioid pain medication starting at the first clinic visit. 4. Not all patients will receive a refill of opioid medications. We will only prescribe re fills of opioids if we feel the medication is being use appropriately and is required for yo ur pain. We are only able to renew opioid prescriptions in a mkfl-sn-tzsz clinic visit. Our clinic sees patients on Mondays and Fridays from 1:00 pm to 3:00 pm. You must have an appoi ntment to be seen. You must call at least 3 days in advance to obtain an appointment. Ther e are no same day appointments. 5. We do not refill prescriptions after hours or over the phone. 6. We consult with other providers and pharmacy services to monitor opioid pain medication use. We reserve the right to abruptly stop all opioid pain medications if we think that th e risks outweigh the benefits. We hope this brief summary will help you understand how we manage pain both inside and outs luis the hospital on the Trauma Service. Other Trauma Discharge Instructions Special Instructions: No drinking alcohol while on narcotics. No driving or operating heavy machinery while on pain medications. For Extreme Emergencies: Call 911. Call the Trauma Resident on-call at . if you have any of the following urgent issues: Difficulty breathing or unusual shortness of breath, Excessive bleeding, Increased drainage from your wounds, Fever greater than 101.5 degrees, chills, increased pain that is not relieved by pain medic ations, Persistent nausea or vomiting. For all other questions, non-urgent issues between 7:00am to 4:00pm, call the Trauma clinic at . Your call will be answered before the end of the business day. Schedule the following appointment(s) when you get home SCOOBY MCCLURE MD. Schedule an appointment as soon as possible for a visit in 1 week. Specialty: Family Medicine Why: follow up [facility] Contact information [facility] [address] [address] [facility] [place] [address] Trauma Center at [facility]. Specialty: Trauma Center Why: As needed Contact information [address] [place] [address] Mailcode: [id number] [facility] [address] [facility] [address] Additional information: The [facility] is the building just past [facility] for [facility]. Turn ri ght immediately past the Pavilion. The entrance to garage B will be on your right just beyon d the main doors to the Pavilion. An elevator in the parking garage will take patients direc tly to the floor of the clinic. The Trauma Clinic is located on the 2nd floor, [address]. Pl ease check in at the front clerk. Maps and directions can be found at [email or web address] Vitals on discharge: Ht 1.778 m (5' 10"), Wt 114.5 kg (252 lb 6.8 oz), BP 167/52, Pulse 69, Temperature 36.6 C (97.9 F), RR 16, SpO2 100%, BMI 36.22 kg/(m^2). Outstanding labs/studies: None Discharging Physician: David Anderson MD Attending Physician: Deandre Austin MD Associated attestation - Familia Early MD - 02/23/2018 9:15 AM PDTAttending: I saw and examined Jose Rafael Cisneros ([id number]) with the residents on 02/22/2018 and agree with the assessment and plan as outlined in this discharge summary. Familia Early MD Care Information Associate Trauma, Critical Care & Acute Care Surgery documented in this encounter Discharge Instructions Instructions Oscar Hilton RN - 02/22/2018Formatting of this note might be different fr om the original. Broken Neck: Care Instructions Your Care Instructions A broken neck can range from a small, hairline crack, to a bone or bones breaking into two or more pieces. Treatment for a broken neck depends on how bad the break is and which bones are involved. You may be sent home with a neck brace or collar. You can help your neck heal with care at home. You heal best when you take good care of yourself. Eat a variety of healthy foods, and don' t smoke. Follow-up care is a sofia part of your treatment and safety. Be sure to make and go to all ap pointments, and call your doctor if you are having problems. It's also a good idea to know y our test results and keep a list of the medicines you take. How can you care for yourself at home? If you were fitted for a neck brace, wear it exactly as directed by your doctor. Do not take it off until your doctor tells you to. Be safe with medicines. Take pain medicines exactly as directed. If the doctor gave you a prescription medicine for pain, take it as prescribed. If you are not taking a prescription pain medicine, ask your doctor if you can take an o nyx-crt-iefkjes medicine. Follow your doctor's directions for returning to your normal activities. Do any exercises that you are given to keep your muscles strong and reduce stiffness. You can try using heat or ice to see if it helps. Try using a heating pad on a low or medium setting for 15 to 20 minutes every 2 to 3 amrit rs. Try a warm shower in place of one session with the heating pad. You can also buy single- use heat wraps that last up to 8 hours. You can also try an ice pack for 10 to 15 minutes every 2 to 3 hours. Make sure that paths in your home are clear so that you do not fall. Also make sure that lighting is good and that carpets are tacked down to prevent tripping. Do not drive unless your doctor says that it is okay. If you are allowed to drive, alway s wear a seat belt. Talk to your doctor about medicines or changes in your diet that can help make your bone s stronger. When should you call for help? Call 911 anytime you think you may need emergency care. For example, call if: ? You are unable to move an arm or a leg at all. ?Call your doctor now or seek immediate medical care if: ? You have new or worse symptoms in your arms, legs, belly, or buttocks. Symptoms may in clude: Numbness or tingling. Weakness. Pain. ? You lose bladder or bowel control. ?Watch closely for changes in your health, and be sure to contact your doctor if: ? You are not getting better as expected. Where can you learn more? To learn more about "Broken Neck: Care Instructions", log into your [employer] account at http :[email or web address]. You can enter U000 in the "[employer]" search box. Not on [employer]? Review the [employer] section of your After Visit Summary for directions on ho w to sign up. Current as of: November 10, 2016 Content Version: [id number] [employer]. Care instructions adapted under license by [facility] [employer]. If you have questions about a medical condition or this instr uction, always ask your healthcare professional. [employer] disclaims any lakhwinder anty or liability for your use of this information. AttachmentsThe following attachments cannot be sent through Care Everywhere.Cervical Spinal Fusion: Post-op (Burmese)DVT (Deep Vein Thrombosis) (Burmese)documented in this encounter Medications at Time of Discharge + + + +---------+ + + | Medication | Sig | Dispensed | Refills | Start | End Date | | | | | | Date | | + + + +---------+ + + | acetaminophen 500 | Take 2 tablets by | 30 | 0 | 02/22/ | | | mg oral tablet | mouth every eight | tablet | | 18 | | | | hours. | | | | | + + + +---------+ + + | cholecalciferol | Take 2,000 Units by | | 0 | | | | (Vitamin D3) 1,000 | mouth once daily. | | | | | | unit oral tablet | | | | | | + + + +---------+ + + | cholecalciferol | Take 1 tablet by | 30 | 0 | 02/24/20 | | | (Vitamin D3) 2,000 | mouth once daily. | tablet | | 18 | | | unit oral tablet | | | | | | + + + +---------+ + + | docusate sodium | Take 100 mg by mouth | | 0 | | | | 100 mg oral capsule | once daily as | | | | | | | needed. | | | | | + + + +---------+ + + | folic acid 1 mg | Take 0.5 mg by mouth | | 0 | | | | oral tablet | once daily. | | | | | + + + +---------+ + + | gabapentin 100 mg | Take 2 capsules by | | 0 | 02/23/20 | | | oral capsule | mouth once daily at | | | 18 | | | | bedtime. | | | | | + + + +---------+ + + | | Take 25 mg by mouth | | 0 | | | | hydroCHLOROthiazide | once daily. | | | | | | 25 mg oral tablet | | | | | | + + + +---------+ + + | HYDROmorphone | Take 1-2 tablets by | 30 | 0 | // | | | (DILAUDID) 2 mg oral | mouth every three | tablet | | 18 | | | tablet | hours as needed for | | | | | | | severe pain. | | | | | + + + +---------+ + + | insulin aspart | Inject under the | | 0 | | | | U-100 100 unit/mL | skin (SUBC) three | | | | | | subcutaneous | times daily before | | | | | | solution | meals. 4-6 units | | | | | | | with meal and | | | | | | | supplemental dose | | | | | | | based on blood | | | | | | | glucose | | | | | + + + +---------+ + + | insulin glargine | Inject 66 Units | | 0 | | | | 100 unit/mL | under the skin | | | | | | subcutaneous | (SUBC) once daily at | | | | | | solution | bedtime. | | | | | + + + +---------+ + + | levothyroxine 50 | Take 50 mcg by mouth | | 0 | | | | mcg Oral tablet | before breakfast. | | | | | + + + +---------+ + + | lisinopril 20 mg | Take 20 mg by mouth | | 0 | | | | oral tablet | once daily. | | | | | + + + +---------+ + + | loratadine 10 mg | Take 10 mg by mouth | | 0 | | | | oral tablet | once daily as | | | | | | | needed. | | | | | + + + +---------+ + + | MEDICAL MARIJUANA | once daily. 3 grams | | 0 | | | | | per day | | | | | + + + +---------+ + + | morphine 15 mg | Take 15 mg by mouth | | 0 | | | | oral tablet | four times daily as | | | | | | | needed. | | | | | + + + +---------+ + + | morphine ER 60 mg | Take 60 mg by mouth | | 0 | | | | oral tablet extended | every twelve hours. | | | | | | release | | | | | | + + + +---------+ + + | | Take 1 tablet by | | 0 | | | | multivitamin-mineral | mouth once daily. | | | | | | s oral tablet | | | | | | + + + +---------+ + + | ranitidine 150 mg | Take 150 mg by mouth | | 0 | | | | oral tablet | two times daily. | | | | | + + + +---------+ + + | rivaroxaban 20 mg | Take 1 tablet by | 30 | 0 | 03/17/20 | | | oral tablet | mouth once daily | tablet | | 18 | | | | with breakfast. | | | | | + + + +---------+ + + | rivaroxaban 15 mg | Take 1 tablet by | 42 | 0 | 02/24/20 | | | oral tablet | mouth two times | tablet | | 18 | 8 | | | daily with meals for | | | | | | | 21 days. | | | | | + + + +---------+ + + documented as of this encounter Progress Notes Fabienne Paige PA-C - 02/22/2018 11:30 AM PDTFormatting of this note might be different f rom the original. Neurosurgery Progress Note Hospital Day:7 Author; FABIENNE PAIGE PA-C Attending Physician: Deandre Austin MD Interval Hx: Mr. Cisneros reports feeling well overall today with some tightness to his neck wi th movement. He denies numbness, tingling, weakness in BUE and BLE. He states his pain is we ll-controlled on current regimen with no new symptoms. Last Vitals: BP 164/55 | Pulse 82[apical, regular[ | Temp 36.7 C (98.1 F) | RR 14 | Ht 1.778 m (5' 10") | Wt 114.5 kg (252 lb 6.8 oz) | SpO2 100% | BMI 36.22 kg/(m^2) O2 Delivery Device: None (room air) (02/22/18 0752) 24 Hour Vital Min/Max: Systolic (24hrs), Av , Min:139 , Max:164 Diastolic (24hrs), Av, Min:55, Max:79Puls e Min: 76 Max: 100 Temp Min: 36.3 C (97.4 F) Max: 36.7 C (98.1 F) Resp Min: 14 Max: 18 SpO2 Min: 98 % Max: 100 % Intake/Output Summary (Last 24 hours) at 02/22/18 1130 Last data filed at 02/22/18 0752 Gross per 24 hour Intake 0 ml Output 6300 ml Net -6300 ml Exam: Alert, oriented x3. Speech clear, fluent. Gaze conjugate. Face symmetric. Sensation: LT sensation intact in all 4 extremities Motor: Full strength throughout Incisions: flat, dry, intact Current Medications: acetaminophen (TYLENOL) tablet 1,000 mg, 1,000 mg, oral, Q8H bacitracin-polymyxin B (POLYSPORIN) 500-10,000 unit/gram packet 1 packet, 1 g, topical, PRN bisacodyl (DULCOLAX) suppository 10 mg, 10 mg, rectal, DAILY PRN cholecalciferol (Vitamin D3) (VITAMIN D-3) tablet 2,000 Units, 2,000 Units, oral, DAILY dextrose 50 % in water IV 25 mL, 25 mL, intravenous, PRN enoxaparin (LOVENOX) injection 100 mg, 100 mg, subcutaneous, Q12H (Scheduled) folic acid (FOLVITE) tablet 0.4 mg, 0.4 mg, oral, DAILY gabapentin (NEURONTIN) capsule 200 mg, 200 mg, oral, HS glucagon (GLUCAGEN) injection 1 mg, 1 mg, intramuscular, PRN glucose chewable tablet 16 g, 16 g, oral, PRN hydrALAZINE (APRESOLINE) injection 10 mg, 10 mg, intravenous, Q4H PRN HYDROmorphone (DILAUDID) tablet 2-6 mg, 2-6 mg, oral, Q3H PRN insulin glargine (LANTUS) injection 33 Units, 33 Units, subcutaneous, HS insulin lispro (HUMALOG) injection 8 Units, 8 Units, subcutaneous, TID W/MEALS insulin lispro (HUMALOG) injection, , subcutaneous, QID lactobacillus rhamnosus (GG) (CULTURELLE) 15 billion cell capsule 1 capsule, 1 capsule, ora l, DAILY levothyroxine tablet 50 mcg, 50 mcg, oral, DAILY morphine ER (MS CONTIN) tablet 60 mg, 60 mg, oral, Q12H multivitamin (THERA VITAMIN) 1 tablet, 1 tablet, oral, DAILY nystatin (MYCOSTATIN) cream, , topical, QID PRN ondansetron (ZOFRAN) tablet 8 mg, 8 mg, oral, Q12H PRN polyethylene glycol (MIRALAX) packet 17 g, 17 g, oral, QPM polyethylene glycol (MIRALAX) packet 17 g, 17 g, oral, BID PRN prochlorperazine (COMPAZINE) injection 5-10 mg, 5-10 mg, intravenous, Q6H PRN prochlorperazine (COMPAZINE) tablet 5-10 mg, 5-10 mg, oral, Q6H PRN senna (SENOKOT) tablet 2 tablet, 2 tablet, oral, BID simethicone chew (MYLICON) tablet 80 mg, 80 mg, oral, TID PRN Impression: 67 YOM with a history of ankylosing spondylitis and C7 fracture after a fall and subsequen t C3-T2 PIF in 2006. He presented after a GLF on 02/15/18. Imaging revealed an unstable C2 fr acture. Now s/p C1 laminoplasty and placement of occipital plates, with bilateral outrigger rods connected to previous hardware on 02/18/18. Previous history of DVT and two prior stroke s, on Xarelto. Vascular US on 02/18 showed thrombus in the right posterior tibial vein of pro ximal calf. Currently anticoagulated with lovenox 100 mg BID. Neuro intact. Plan: - please have patient complete routine post-op cervical xrays today (ordered) - routine wound care, ok to shower daily, no creams or ointments, no submersion for 6 weeks - please arrange for patient to have conrado removed at 2 weeks by local primary care provi flako - we will arrange to have patient follow up in neurosurgery clinic in 3 months with cervica l AP/lat x-rays prior - ok with current anticoagulation plan as previously discussed between Dr. Barroso and trauma team - remainder of care per trauma team - neurosurgery will sign off at this time FABIENNE PAIGE PA-C [facility] [address] [place] [address] Tino Swanson MD - 02/21/2018 11:51 AM PDT Trauma Acute Care - Progress Note Name: JOSE RAFAEL CISNEROS HPI: Jose Rafael Cisneros is a 67 y.o. male with a PMHx of with ankylosing spondylitis, previous C7 fracture (s/p C3-T2 posterior spinal instrumentation and fusion in 2006), DMII, anti-mesfin spholipid syndrome, and history of DVT (on xarelto) who had a GLF in the shower sustaining a n unstable fracture of C2. Admitted on 02/15/2018. Evaluated and treated for the following: Traumatic Injuries: Bilateral C2 posterior element fractures and 8 mm anterolisthesis of C2 on C3 Hospital Day #6 Abx: Cefazolin 3g IV Q8 (02/15 - 02/20) Procedures: 02/18: C1 laminoplasty, placement of occipital plates, and bridging to existing cervical con struct 24hr events: none Current meds: I have independently reviewed current medication Labs: Chemistries: Last 72 Hours (or 3 results) - Refreshable Recent Labs 02/20/18 1916 02/20/18 2254 02/21/18 0748 GLU 147* 159* 121* CBC with diff last 72 hours (or 3 results) - Refreshable Recent Labs 02/19/18 0902 02/20/18 1351 02/21/18 1018 WBC 10.39 9.45 8.51 HB 12.2* 12.8* 12.3* HCT 36.7* 36.9* 36.3* PLT 202 246 265 Imagin/26 CTA neck w/contrast: 1. Bilateral C2 posterior element fractures and 8 mm anterolisthesis of C2 on C3 2. No evidence of aneurysm, dissection, or traumatic vascular injury. 3. Incidental left thyroid lesion can be further evaluated with ultrasound if clinically in dicated. 02/15 CT T/L spine w/o contrast: 1. Advanced sequela of ankylosing spondylitis without acute fractures of the thoracic or eren mbar spine. 2. Diffuse osteopenia. 3. Partial visualization of scattered bilaterally pulmonary consolidations can be further e valuated with dedicated chest CT. 02/20 Venous duplex: RIGHT: There is deep vein thrombus in the posterior tibial vein in the proximal calf. No ot her venous thrombosis was detected. The calf veins were poorly visualized due to swelling. LEFT: No venous thrombosis was detected. The calf veins were poorly visualized due to swell ing. 02/20 US soft tissue head/neck Nodule 1: 4.4 x 3.7 x 4.2 cm hyperechoic well-circumscribed nodule corresponding to the les ion seen on prior CTA of neck from 02/15/2018. The nodule demonstrates increased vascularity with no definite calcifications. Meets criteria for FNA Vitals: BP 145/57 | Pulse 78 | Temp 36.8 C (98.2 F) | RR 18 | Ht 1.778 m (5' 10") | Wt 114.5 kg (252 lb 6.8 oz) | SpO2 98% | BMI 36.22 kg/(m^2) Neuro: awake, alert, and oriented, GCS 15, 5/5 in BUE/BLE, no drift HEENT: BI, symmetric smile, EOMI Neck: no JVD Respiratory: lungs symmetrical, equal chest wall rise, no retractions GI: non tender, soft, nondistended Musculoskeletal: motor/sensory intact to light touch in UE/LE bilaterally Heme/ID: on Lovenox, BLE venous duplex on 02/20 re-demonstrates DVT in posterior tibial vein in the proximal calf Summary: 67 yo male w/unstable C2 fx following GLF s/p C1 laminoplasty, placement of occipi yash plates and bridging to existing construct on 02/18, POD#3 doing well. Active issues/Plan: # C2 fracture: Unstable fracture of bilateral laminae at C2 with 8 mm retrolisthesis of C2 on C3, no evidence of vascular injury. Neuro intact. OR 02/18 for C1 laminoplasty, placement of occipital plates, and bridging to existing cervical construct. C spine cleared, DC'd C co llar - Q4H neuro checks # DVT/APLA: History of recurrent DVTs, on rivaroxaban at home. INR 1.46 on admission. DVT I dentified on 6/29 in posterior tibial vein at proximal calf. No other venous thrombi detecte d. Consult to hematology to assist in risk of holding anticoagulation perioperatively. Dr. Allyn quintero discussed with NSG and started on prophylactic dose with transition to therapeutic dos e beginning the morning of 02/20. Heme made aware by page. - Transition to home rivaroxaban 20mg PO QAM on discharge # Ankylosing spondylitis On home adalimumab per records, but patient states he is not aware of this medication and h as never taken it # Acute on chronic pain: patient takes home morphine PRN, but is well controlled now on the current regimen. - Continue tylenol, dilaudid, oxycodone, morphine ER # Allergies: - Hold PRN loratadine for allergies # Hypertension - continue PRN hydralazine - Continue to hold HCTZ, lisinopril; can be restarted on the floor # Folate deficiency: On folate 0.5 mg daily at home - Continue folic acid 0.4 mg daily # T2DM- persistent hyperglcemia- 106-205. Diet resumed and back on home dose of lantus post -op (33 units nightly). Mealtime insulin changed from 5 to 8 units 02/20. - continue SSI - Blood glucose stable 120s-150s. Can consider uptitrating further if he continues to be hy perglycemic. # Vitamin D deficiency - Continue home cholecalciferol 5,000 mg oral daily # Thyroid abnormality: Incidental left thyroid lesion seen on CT scan. It is heterogenous a nd large, measuring 4.2 x 2.6 x 4.8. Patient on levothyroxine 50 mcg daily at home per medic al records. TSH on admission within normal limits (2.75; nml 0.5-5.5). Given the large size, will likely require additional workup. Ultrasound 02/20 demonstrates Large hyperechoic left t hyroid nodule meeting criteria for FNA. - Continue home Levothyroxine 50 mcg daily - Consider obtaining additional history from OSH - Defer workup as outpatient RESOLVED ISSUES: # Leukocytosis: resolved, 21.13 on admission-->12.85-->10.39. Likely reactive. Resolved / 0. # Infectious disease On cefazolin post-op, DC'd cefazolin on 02/20 once hemovac out as per NSG recs. Disposition: continue acute samson care, Q4H neuro checks, pain control, awaiting PT/OT. Tino Cortez MD [facility] [address] [place] [address] Associated attestation - Familia Early MD - 02/22/2018 10:10 AM PDTAttending: I saw and examined Jose Rafael Cisneros ([id number]) with the residents on 02/21/2018 and agree with the assessment and plan as outlined in this note and participated in the planning of care. Familia Early MD Care Information Associate Division of Trauma and Critical Care Erica Calderon PA - 02/21/2018 8:24 AM PDTFormatting of this note might be differe nt from the original. NEUROSURGERY INPATIENT PROGRESS NOTE Hospital Day:6 Author; SORAYA SCHOFIELDC Attending Physician: Deandre Austin MD Interval Hx: -No events overnight. -Pt. Reports pain control adequate. Physical Exam: Last Vitals: BP 135/49 | Pulse 76 | Temp 36.4 C (97.5 F) | RR 16 | Ht 1.778 m (5' 10") | Wt 114.5 kg (252 lb 6.8 oz) | SpO2 100% | BMI 36.22 kg/(m^2) O2 Delivery Device: None (cuco m air) (02/21/18 0324) 24 Hour Vital Min/Max: Systolic (24hrs), Av , Min:135 , Max:154 Diastolic (24hrs), Av, Min:49, Max:72 Pulse Min: 68 Max: 94 Temp Min: 36.4 C (97.5 F) Max: 36.7 C (98.1 F) Resp Min: 14 Max: 16 SpO2 Min: 98 % Max: 100 % Intake/Output Summary (Last 24 hours) at 02/21/18 0824 Last data filed at 02/21/18 0636 Gross per 24 hour Intake 2476 ml Output 5825 ml Net -3349 ml Labs Results for JOSE RAFAEL CISNEROS ( ) as of 02/21/2018 08:24 Ref. Range 02/20/2018 13:51 WHITE CELL COUNT Latest Ref Range: 3.50 - 10.80 K/cu mm 9.45 RED CELL COUNT Latest Ref Range: 4.50 - 6.00 M/cu mm 4.44 (L) HEMOGLOBIN Latest Ref Range: 13.5 - 17.5 g/dL 12.8 (L) HEMATOCRIT Latest Ref Range: 41.0 - 53.0 % 36.9 (L) MCV Latest Ref Range: 80.0 - 100.0 fL 83.1 MCHC Latest Ref Range: 32.0 - 36.0 g/dL 34.7 RDW SD Latest Ref Range: 35.1 - 46.3 fL 40.6 PLATELET COUNT Latest Ref Range: 150 - 400 K/cu mm 246 MPV Latest Ref Range: 9.7 - 12.3 fL 9.1 (L) NRBC% Latest Ref Range: 0.0 - 0.3 % 0.0 NRBC# Latest Ref Range: 0.00 - 0.02 K/cu mm 0.00 General: 67 y/o male in [facility] Incision: C/D/I, no erythema-conrado present Neuro: Alert and oriented x 3, face symmetric Motor: MOTOR SCORE LEFT RIGHT C5 (Shoulder Abduct) 5 5 C6 (Elbow Flex) 5 5 C7 (Elbow Ext) 5 5 C8 (Wrist Ext) 5 5 T1 (Pinky Abd) 5 5 L2 (Hip Flex) 5 5 L3 (Knee Ext) 5 5 L4 (Dorsiflexion) 5 5 L5 (EHL) 5 5 S1 (Plantar Flex) 5 5 Sensation: Light Touch: intact throughout Ext: no edema, deformity Psychiatric: Appropriate and cooperative Assessment/Plan: Jose Rafael Cisneros is a 67 y.o. male admitted on 02/15/2018 w olivia madsen who pérez d GLF and unstable C2 fracture-now s/p C1 laminoplasty, placement of occipital plates, and B /L outrigger rods connected to existing hardware on 02/18/18. Neuro intact. -Continued care per Primary team-Trauma Service -Neurosurgery Service following, monitoring incision and exam. -Wound care-Ok to shower. Do not put creams or ointments on incision. Wound conrado due out 2 weeks post op. -No cervical collar needed. -Anticoagulation plan per Primary team. Neurosurgery attending aware. -Will arrange outpatient FU ERICA CALDERON PA-C [facility] [address] [place] [id number] MEDICATIONS Current Facility-Administered Medications Medication acetaminophen (TYLENOL) tablet 1,000 mg bacitracin-polymyxin B (POLYSPORIN) 500-10,000 unit/gram packet 1 packet bisacodyl (DULCOLAX) suppository 10 mg cholecalciferol (Vitamin D3) (VITAMIN D-3) tablet 2,000 Units dextrose 50 % in water IV 25 mL enoxaparin (LOVENOX) injection 100 mg folic acid (FOLVITE) tablet 0.4 mg gabapentin (NEURONTIN) capsule 200 mg glucagon (GLUCAGEN) injection 1 mg glucose chewable tablet 16 g hydrALAZINE (APRESOLINE) injection 10 mg HYDROmorphone (DILAUDID) injection 0.5-1 mg insulin glargine (LANTUS) injection 33 Units insulin lispro (HUMALOG) injection 8 Units insulin lispro (HUMALOG) injection lactobacillus rhamnosus (GG) (CULTURELLE) 15 billion cell capsule 1 capsule levothyroxine tablet 50 mcg morphine ER (MS CONTIN) tablet 60 mg multivitamin (THERA VITAMIN) 1 tablet nystatin (MYCOSTATIN) cream ondansetron (ZOFRAN) tablet 8 mg oxyCODONE (immediate release) (ROXICODONE) tablet 5-15 mg polyethylene glycol (MIRALAX) packet 17 g polyethylene glycol (MIRALAX) packet 17 g prochlorperazine (COMPAZINE) injection 5-10 mg prochlorperazine (COMPAZINE) tablet 5-10 mg senna (SENOKOT) tablet 2 tablet simethicone chew (MYLICON) tablet 80 mg Emily Pichardo MD - 02/20/2018 2:28 PM PDT NEUROSURGERY PROGRESS NOTE 02/20/2018 Hospital Day #: 5 Attending: Deandre Austin MD Interval Events: -no acute events, pain well controlled -hemovac removed 7.1 Objective: Last Vitals: BP 152/62 | Pulse 88 | Temp 36.7 C (98.1 F) | RR 16 | Ht 1.778 m (5' 10") | Wt 114.5 kg (252 lb 6.8 oz) | SpO2 99% | BMI 36.22 kg/(m^2) 24 Hour Vital Min/Max: Systolic (24hrs), Av , Min:148 , Max:189 Diastolic (24hrs), Av, Min:52, Max:82 Pulse Min: 68 Max: 98 Temp Min: 36.4 C (97.5 F) Max: 36.9 C (98.4 F) Resp Min: 16 Max: 18 SpO2 Min: 93 % Max: 99 % Intake/Output Summary (Last 24 hours) at 02/20/18 1428 Last data filed at 02/20/18 1004 Gross per 24 hour Intake 1630 ml Output 3000 ml Net -1370 ml Physical Exam: AOx4, speech appropriate, follows commands PERRL, EOMI, FS, TM Neg drift BUE/BLE 5/5 SILT Incision clean/dry/intact without erythema, swelling, or drainage Labs: Lab Results Component Value Date/Time NA 136 02/18/2018 10:41 AM NA 136 02/15/2018 04:25 PM NA 139 05/10/2012 05:07 AM K 4.4 02/18/2018 10:41 AM K 4.3 02/15/2018 04:25 PM K 4.5 05/10/2012 05:07 AM CR 0.68 (L) 02/18/2018 12:42 AM CR 0.8 02/15/2018 04:25 PM CR 0.81 05/10/2012 05:07 AM HCT 36.9 (L) 02/20/2018 01:51 PM HCT 38.2 (L) 02/18/2018 10:41 AM HCT 49 02/15/2018 04:25 PM HCT 32.9 (L) 05/11/2012 04:45 AM WBC 9.45 02/20/2018 01:51 PM WBC 7.9 03/02/2013 11:16 AM WBC 10.0 05/11/2012 04:45 AM PLT 246 02/20/2018 01:51 PM PLT 228 05/11/2012 04:45 AM Current Facility-Administered Medications Medication Dose Route Frequency acetaminophen (TYLENOL) tablet 1,000 mg 1,000 mg oral Q8H bacitracin-polymyxin B (POLYSPORIN) 500-10,000 unit/gram packet 1 packet 1 g topical P RN bisacodyl (DULCOLAX) suppository 10 mg 10 mg rectal DAILY PRN ceFAZolin (ANCEF) 3 g in NaCl 0.9 % (NS) IV 3 g intravenous Q8H cholecalciferol (Vitamin D3) (VITAMIN D-3) tablet 2,000 Units 2,000 Units oral DAILY dextrose 50 % in water IV 25 mL 25 mL intravenous PRN enoxaparin (LOVENOX) injection 100 mg 100 mg subcutaneous Q12H (Scheduled) folic acid (FOLVITE) tablet 0.4 mg 0.4 mg oral DAILY gabapentin (NEURONTIN) capsule 200 mg 200 mg oral HS glucagon (GLUCAGEN) injection 1 mg 1 mg intramuscular PRN glucose chewable tablet 16 g 16 g oral PRN hydrALAZINE (APRESOLINE) injection 10 mg 10 mg intravenous Q4H PRN HYDROmorphone (DILAUDID) injection 0.5-1 mg 0.5-1 mg intravenous Q2H PRN insulin glargine (LANTUS) injection 33 Units 33 Units subcutaneous HS insulin lispro (HUMALOG) injection 8 Units 8 Units subcutaneous TID W/MEALS insulin lispro (HUMALOG) injection subcutaneous QID lactobacillus rhamnosus (GG) (CULTURELLE) 15 billion cell capsule 1 capsule 1 capsule oral DAILY levothyroxine tablet 50 mcg 50 mcg oral DAILY morphine ER (MS CONTIN) tablet 60 mg 60 mg oral Q12H multivitamin (THERA VITAMIN) 1 tablet 1 tablet oral DAILY nystatin (MYCOSTATIN) cream topical QID PRN ondansetron (ZOFRAN) tablet 8 mg 8 mg oral Q12H PRN oxyCODONE (immediate release) (ROXICODONE) tablet 5-15 mg 5-15 mg oral Q3H PRN polyethylene glycol (MIRALAX) packet 17 g 17 g oral QPM polyethylene glycol (MIRALAX) packet 17 g 17 g oral BID PRN prochlorperazine (COMPAZINE) injection 5-10 mg 5-10 mg intravenous Q6H PRN prochlorperazine (COMPAZINE) tablet 5-10 mg 5-10 mg oral Q6H PRN senna (SENOKOT) tablet 2 tablet 2 tablet oral BID ASSESSMENT: Jose Rafael Cisneros is a 67 y.o. male admitted on 02/15/2018 w olivia madsen who had GLF and unstabl e C2 fracture s/p C1 laminoplasty, placement of occipital plates, and B/L outrigger rods con nected to existing hardware on 02/18. PLAN: -freq neuro checks -NSGY will follow Post-operative anticoagulation recommendations: -Usepneumatic compression stockings until ambulatory -3d after surgery: start LMWH 40 mg SQif there is surgical hemost asis -6dafter surgery: increase to LMWH 40 mg SQ BID -9dafter surgery: increase to LMWH 1 mg/kg SQ BID, and START warf bebe -Stop LMWH when INR is >2 Please page [phone] with any questions or concerns. Hugo Daniel M.D. Neurological Surgery Resident PGY-1 Pager: [phone] signed by Hugo Daniel MD at 02/20/2018 2:30 PM Tino Swanson MD - 02/20/2018 2:25 PM PDTFormatting of this note might be different from the orig lynnwoodl. Trauma Acute Care - Progress Note Name: JOSE RAFAEL CISNEROS HPI: Jose Rafael Cisneros is a 67 y.o. male with a PMHx of with ankylosing spondylitis, previous C7 fracture (s/p C3-T2 posterior spinal instrumentation and fusion in 2006), DMII, anti-mesfin spholipid syndrome, and history of DVT (on xarelto) who had a GLF in the shower sustaining a n unstable fracture of C2. Admitted on 02/15/2018. Evaluated and treated for the following: Traumatic Injuries: Bilateral C2 posterior element fractures and 8 mm anterolisthesis of C2 on C3 Hospital Day #5 Abx: Cefazolin 3g IV Q8 (02/15 - 02/20) Procedures: 02/18: C1 laminoplasty, placement of occipital plates, and bridging to existing cervical con struct 24hr events: none Current meds: I have independently reviewed current medication Labs: Chemistries: Last 72 Hours (or 3 results) - Refreshable Recent Labs 02/18/18 0042 02/18/18 0912 02/18/18 1041 02/19/18 2030 02/19/18 2335 02/20/18 1004 NA 135* -- 135 -- 136 -- -- -- -- K 4.1 -- 4.4 -- 4.4 -- -- -- -- CL 101 -- 103 -- 103 -- -- -- -- BICARB 24 -- -- -- -- -- -- -- -- BUN 11 -- -- -- -- -- -- -- -- EGFRAFRICAN >60 -- -- -- -- -- -- -- -- CR 0.68* -- -- -- -- -- -- -- -- GLU 146* < > -- < > -- < > 143* 125* 148* CA 8.8 -- -- -- -- -- -- -- -- MG 2.1 -- -- -- -- -- -- -- -- PO4 3.5 -- -- -- -- -- -- -- -- < > = values in this interval not displayed. CBC with diff last 72 hours (or 3 results) - Refreshable Recent Labs 02/18/18 0042 02/18/18 1041 02/19/18 0902 02/20/18 1351 WBC 9.43 -- -- 10.39 9.45 HB 13.2* -- -- 12.2* 12.8* HCT 38.9* < > 38.2* 36.7* 36.9* PLT 218 -- -- 202 246 < > = values in this interval not displayed. Imagin/26 CTA neck w/contrast: 1. Bilateral C2 posterior element fractures and 8 mm anterolisthesis of C2 on C3 2. No evidence of aneurysm, dissection, or traumatic vascular injury. 3. Incidental left thyroid lesion can be further evaluated with ultrasound if clinically in dicated. 02/15 CT T/L spine w/o contrast: 1. Advanced sequela of ankylosing spondylitis without acute fractures of the thoracic or eren mbar spine. 2. Diffuse osteopenia. 3. Partial visualization of scattered bilaterally pulmonary consolidations can be further e valuated with dedicated chest CT. 02/20 Venous duplex: RIGHT: There is deep vein thrombus in the posterior tibial vein in the proximal calf. No ot her venous thrombosis was detected. The calf veins were poorly visualized due to swelling. LEFT: No venous thrombosis was detected. The calf veins were poorly visualized due to swell ing. 02/20 US soft tissue head/neck Nodule 1: 4.4 x 3.7 x 4.2 cm hyperechoic well-circumscribed nodule corresponding to the les ion seen on prior CTA of neck from 02/15/2018. The nodule demonstrates increased vascularity with no definite calcifications. Meets criteria for FNA Vitals: BP 135/72 | Pulse 94 | Temp 36.5 C (97.7 F) | RR 14 | Ht 1.778 m (5' 10") | Wt 114.5 kg (252 lb 6.8 oz) | SpO2 99% | BMI 36.22 kg/(m^2) Neuro: awake, alert, and oriented, GCS 15, no drift, BUE/BLE 5/5, no drift HEENT: BI, CN 2-12 grossly intact and EOMs intact to exam Neck: C collar remved Respiratory: lungs symmetrical, equal chest wall rise, no retractions GI: non tender, soft Musculoskeletal: motor/sensory intact LE's and motor/sensory intact UE's Heme/ID: on Lovenox, BLE venous duplex on 02/20 re-demonstrates DVT in posterior tibial vein in the proximal calf Summary: 67 yo male w/unstable C2 fx following GLF s/p C1 laminoplasty, placement of occipi yash plates and bridging to existing construct on 02/18, POD#2 doing well. Active issues/Plan: # C2 fracture: Unstable fracture of bilateral laminae at C2 with 8 mm retrolisthesis of C2 on C3, no evidence of vascular injury. Neuro intact. OR 02/18 for C1 laminoplasty, placement of occipital plates, and bridging to existing cervical construct. C spine cleared, DC'd C co llar - Q4H neuro checks # DVT/APLA: History of recurrent DVTs, on rivaroxaban at home. INR 1.46 on admission. DVT I dentified on 02/18 in posterior tibial vein at proximal calf. No other venous thrombi detecte d. Consult to hematology to assist in risk of holding anticoagulation perioperatively. Dr. Allyn quintero discussed with NSG and started on prophylactic dose with transition to therapeutic dos e beginning the morning of 02/20. Heme made aware by page. # Ankylosing spondylitis On home adalimumab per records, but patient states he is not aware of this medication and h as never taken it # Acute on chronic pain: patient takes home morphine PRN, but is well controlled now on the current regimen. - Continue tylenol, dilaudid, oxycodone, morphine ER # Allergies: - Hold PRN loratadine for allergies # Hypertension - continue PRN hydralazine - Continue to hold HCTZ, lisinopril; can be restarted on the floor # Folate deficiency: On folate 0.5 mg daily at home - Continue folic acid 0.4 mg daily # T2DM- persistent hyperglcemia- 106-205. Diet resumed and back on home dose of lantus post -op (33 units nightly) - continue SSI - Mealtime insulin changed from 5 to 8 units today. Can consider uptitrating further if he continues to be hyperglycemic. # Vitamin D deficiency - Continue home cholecalciferol 5,000 mg oral daily # Thyroid abnormality: Incidental left thyroid lesion seen on CT scan. It is heterogenous a nd large, measuring 4.2 x 2.6 x 4.8. Patient on levothyroxine 50 mcg daily at home per medic al records. TSH on admission within normal limits (2.75; nml 0.5-5.5). Given the large size, will likely require additional workup. Ultrasound 02/20 demonstrates Large hyperechoic left t hyroid nodule meeting criteria for FNA. - Continue home Levothyroxine 50 mcg daily - Consider obtaining additional history from OSH - Consider FNA RESOLVED ISSUES: # Leukocytosis: resolved, 21.13 on admission-->12.85-->10.39. Likely reactive. Resolved 01/23 0. # Infectious disease On cefazolin post-op, DC'd cefazolin on 02/20 once hemovac out as per NSG recs. Disposition: continue acute samson care, Q4H neuro checks, pain control. Tino Cortez MD [facility] [place] [address] Associated attestation - Munira Best MD,MPH - 02/20/2018 5:15 PM PDTI saw and evaluat ed the patient. I agree with the findings and the plan of care as documented in the residen t s note. Adjusting pain control up as the patient has acute on chronic pain. Further, cl eared for full dose anticoagulation initiation today (VTE) Munira Best MD, MPH metal technician Trauma, Critical Care & Acute Care Surgery [facility] Jakob Portillo MD - 02/19/2018 10:20 AM PDT Trauma and Surgical ICU Daily Progress Note Author: Jakob Date: 02/17/2018 9:26 AM Hospital Day: 4 ICU Day: 4 HPI: Mr Cisneros is a 67 yo M with ankylosing spondylitis, prior history of C7 fracture (s/p C3-T2 p osterior spinal instrumentation and fusion in 2006), DMII, anti-phospholipid syndrome, and h istory of DVT (on xarelto) who had a GLF in the shower sustaining an unstable fracture of C2 . Procedures: 02/18: C1 laminoplasty, placement of occipital plates, and bridging to existing cervical con struct 24hr Events: Hemodyanmically stable DVT in posterior tibial vein in proximal calf, NSG made aware on 02/18 and did not want to c hange their anticoag plan; heme made aware in morning on 02/19 Medications and Laboratory Tests: Have been reviewed and can be referenced in the EMR Vital Signs: Last Vitals: BP 152/69 | Pulse 82 | Temp 37.2 C (99 F) | RR 16 | Ht 1.778 m (5' 10") | Wt 114.5 kg (252 lb 6.8 oz) | SpO2 97% | BMI 36.22 kg/(m^2) 24 Hour Vital Min/Max: Systolic (24hrs), Av , Min:119 , Max:164 Diastolic (24hrs), Av, Min:50, Max:82 Pulse Min: 70 Max: 107 Temp Min: 36.6 C (97.9 F) Max: 37.2 C (99 F) Resp Min: 9 Max: 118 SpO2 Min: 93 % Max: 99 % Intake/Output Summary (Last 24 hours) at 02/19/18 1020 Last data filed at 02/19/18 0930 Gross per 24 hour Intake 5100 ml Output 3600 ml Net 1500 ml Physical Exam: Physical Exam Constitutional: He is oriented to person, place, and time and well-developed, well-nourishe d, and in no distress. No distress. HENT: Head: Normocephalic and atraumatic. Eyes: Pupils are equal, round, and reactive to light. Neck: In C collar Cardiovascular: Normal rate and regular rhythm. Pulmonary/Chest: Effort normal and breath sounds normal. Abdominal: Soft. Genitourinary: Testes/scrotum normal. Penis exhibits no lesions and no edema. Genitourinary Comments: George present yellow urine Neurological: He is alert and oriented to person, place, and time. He has normal strength a nd intact cranial nerves. He is not agitated and not disoriented. He displays no atrophy, no tremor and normal speech. No sensory deficit. GCS score is 15. 5/5 in all extremities, sensation intact Skin: Skin is warm and intact. He is not diaphoretic. Psychiatric: Judgment normal. His affect is not blunt, not labile and not inappropriate. He is not agitated. He is not apathetic. He does not have a flat affect. Summary: Mr Cisneros is a 67 yo M with ankylosing spondylitis, prior history of C7 fracture (s/p C3-T2 p osterior spinal instrumentation and fusion in 2006), DMII, anti-phospholipid syndrome, and h istory of DVT (on xarelto) who had a GLF in the shower sustaining an unstable fracture of C2 . Plans: Neurology: Unstable fracture of bilateral laminae at C2 with 8 mm retrolisthesis of C2 on C3, no evide nce of vascular injury. Neuro intact. - OR on 02/18 for C1 laminoplasty, placement of occipital plates, and bridging to existing c ervical construct - Q4H neuro checks - Disontinue C collar, make sure this is okay with NSG (had been told to leave in place, bu t notes say okay to remove) Ankylosing spondylitis - On home adalimumab per records, but patient states he is not aware of this medication and has never taken it Acute on chronic pain: patient takes home morphine PRN, but is well controlled now on the c urrent regimen. - Continue APAP, oxy , prn dilaudid Allergies: - Hold PRN loratadine for allergies HEENT: No acute concerns Pulmonary/Thoracic: No acute concerns Cardiovascular: Hypertension - continue PRN hydralazine - Continue to hold HCTZ, lisinopril; can be restarted on the floor Gastrointestinal/Abdominal: No acute concerns - Patient does have orders for docusate and senna as outpatient, but states he has never ta lorrie them - Continue low intensity bowel regimen Fluids/Electrolytes/Nutrition: Folate deficiency: On folate 0.5 mg daily at home - Continue folic acid 0.4 mg daily Renal: No acute concerns Cr 0.66 Hematology: DVT: Identified on 02/18 in posterior tibial vein at proximal calf. No other venous thrombi detected. - Dr. Best discussed with NSG again this morning and they are okay giving prophylactic do se tonight and therapeutic dose beginning the morning of 02/20. - [facility] made aware by page APLA/History of DVT- takes rivaroxaban at home - INR 1.46, TEG nearly normal - had been taking xarelto at home - patient and family cannot remember when he last had a DVT - consult to hematology to assist in risk of holding anticoagulation perioperatively hemato logy and NSG can make a decision together on what the optimal time and medication is to resu me post operatively; appreciate recs from heme as below (will need confirmation from NSG): - Plan for anticoag as above (see "DVT") pending further recs Infectious Diseases: Post-op cefazolin, no stop date in NSG note, likely for 3 doses or until drain is out. Will clarify with NSG. Endocrinology: T2DM- persistent hyperglcemia- - diet resume this afternoon - back on home dose of lantus post-op (33 units nightly) - continue SSI - Mealtime insulin changed from 5 to 8 units today. Can consider uptitrating further on patrizia or if he continues to be hyperglycemic. Vitamin D deficiency - Continue home cholecalciferol 5,000 mg oral daily Thyroid abnormality: Incidental left thyroid lesion seen on CT scan. It is heterogenous and large, measuring 4.2 x 2.6 x 4.8. Patient on levothyroxine 50 mcg daily at home per medical records. TSH on admission within normal limits (2.75; nml 0.5-5.5). Given the large size, w ill likely require additional workup. - Continue home Levothyroxine 50 mcg daily - Consider obtaining additional history from OSH when on floor - Consider further evaluation with ultrasound when on floor RESOLVED ISSUES: Leukocytosis: resolved, 21.13 on admission-->12.85-->10.39. Likely reactive. Resolved 02/19. F: Diabetic diet A: APAP, oxydilaudid iv S: None T: prophy dose tonight, therapeutic dose beginning 02/20 (lovenox) H:>30 degrees U: none G: insulin glargine 33 units, 8 mealtime, and SSI Y: culturelle B: low intensity I: PIV, hemovac with 80 mL; remove art line D: none Spines: remove C collar if NSG okay with it- T/L cleared CODE: Full Disposition: Roll to the floor. I spent 37 minutes of critical care time independent of separately billable procedures and and time spent in conjunction with my supervising physicians. Jakob Portillo, PGY-1 Surgery [id number] Division of Trauma Department of Surgery Mail Code: [id number] [address] [place] [address] Associated attestation - Munira Best MD,MPH - 02/19/2018 8:48 PM PDTTSICU ATTENDING M EDICAL DECISION MAKING I examined this patient with the ICU team. I have personally reviewed all pertinent labar otory findings, radiographs, and physiologic parameters. I personally performed pertinent p arts of the physical examination and personally formulated the plan with the TSICU team. Munira Best MD, MPH metal technician Trauma, Surgical Critical Care, & Acute Care Surgery [facility] Munira Fang MD - 02/19/2018 8:01 AM PDT Neurosurgery Progress Note Date: 02/19/2018 Admitting Physician: Deandre Austin MD HPI: Jose Rafael Cisneros is a 67 y.o. male admitted to [facility] for trauma Interval Update: OR yest Medications Scheduled Medication: acetaminophen 1,000 mg Q8H ceFAZolin 3 g Q8H cholecalciferol (Vitamin D3) 2,000 Units DAILY folic acid 0.4 mg DAILY insulin glargine 33 Units HS insulin lispro 5 Units TID W/MEALS insulin lispro QID levothyroxine 50 mcg DAILY multivitamin 1 tablet DAILY polyethylene glycol 17 g QPM senna 2 tablet BID PRN Medication: bacitracin-polymyxin B 1 g PRN bisacodyl 10 mg DAILY PRN dextrose 5%-NaCl 0.45% 5-400 mL PRN dextrose 50 % in water 15-150 mL PRN dextrose 50 % in water 25 mL PRN glucagon 1 mg PRN glucose chewable 16 g PRN glucose chewable 4-40 g PRN hydrALAZINE 10 mg Q4H PRN HYDROmorphone 0.5-1 mg Q2H PRN nystatin QID PRN ondansetron 8 mg Q12H PRN oxyCODONE (immediate release) 5-15 mg Q3H PRN polyethylene glycol 17 g BID PRN prochlorperazine 5-10 mg Q6H PRN prochlorperazine 5-10 mg Q6H PRN IV Medication: Exam Physical Exam: Last 24 hour min/max Temp: 37.2 C (99 F) Temp Min: 36.6 C (97.9 F) Max: 37.2 C (99 F) Pulse: 87 Pulse Min: 70 Max: 107 Resp: 18 Resp Min: 9 Max: 118 BP: 119/66 BP Min: 119/66 Max: 164/67 SpO2: 98 % SpO2 Min: 93 % Max: 99 % Body mass index is 36.22 kg/m. I/O/Drains Current Shift I/O/Drains Last 3 Shifts No intake/output data recorded. 02/18 0701 - 02/19 0700 In: 5530 [P.O.:2000; I.V.:3430] Out: 3360 [Urine:2780; Drains:80] No Data Recorded No Data Recorded AOx4, speech appropriate, follows commands PERRL, EOMI, FS, TM Neg drift BUE/BLE 5/5 SILT Data Complete Blood Count/Coags Recent Labs 02/17/18 00302/18/18 0042 02/18/18 0912 02/18/18 1041 WBC 9.36 9.43 -- -- HB 12.6* 13.2* -- -- HCT 37.6* 38.9* 38.0* 38.2* PLT 192 218 -- -- Recent Labs 02/17/18 0031 02/18/18 0042 INRPT 1.07 1.19 Blood Gas Recent Labs 02/18/18 0912 02/18/18 1041 PH 7.36* 7.40 PCO2 46* 41 PO2 78 81 HCO3 26.0 25.4 Q7EEMSUY 95.3 96.3 CSF Results No results for input(s): WBCCSF, RBCCSF, GLUCOSECSF, PROTEINCSF in the last 720 hours. Chemistry Recent Labs 02/17/18 0031 02/18/18 0042 02/18/18 0912 02/18/18 1041 02/18/18 2216 NA 138 -- 135* -- 135 -- 136 -- -- K 3.9 -- 4.1 -- 4.4 -- 4.4 -- -- CL 103 -- 101 -- 103 -- 103 -- -- BICARB 28 -- 24 -- -- -- -- -- -- BUN 14 -- 11 -- -- -- -- -- -- CR 0.68* -- 0.68* -- -- -- -- -- -- GLU 205* < > 146* < > -- < > -- < > 129* CA 7.9* -- 8.8 -- -- -- -- -- -- MG 2.1 -- 2.1 -- -- -- -- -- -- PO4 2.0* -- 3.5 -- -- -- -- -- -- < > = values in this interval not displayed. Culture Results CULTURE RESULT (no units) Date Value 06/29/2013 C Nasal Source: Nasal Final CULTURE RESULT: No Methicillin resistant Staphylococcus aureus isolated No Methicillin susceptible Staphylococcus aureus isolated. 03/02/2013 C Nasal Source: Nasal GRAM STAIN: No Methicillin resistant Staphylococcus aureus isolated No Methicillin susceptible Staphylococcus aureus isolated. Assesment: Jose Rafael Cisneros is a 67 y.o. male admitted on 02/15/2018 w olivia madsen who had GLF and unstable C2 fracture s/p C1 laminoplasty, placement of occipital plates, and B/L outrigg er rods connected to existing hardware on 02/18. PLAN: -OK to transfer -plan to DC drain this PM -freq neuro checks -NSGY will follow Post-operative anticoagulation recommendations: -Usepneumatic compression stockings until ambulatory -3d after surgery: start LMWH 40 mg SQif there is surgical hemost asis -6d after surgery: increase to LMWH 40 mg SQ BID -9d after surgery: increase to LMWH 1 mg/kg SQ BID, and START warfa rin -Stop LMWH when INR is >2 Please contact the neurosurgery resident on-call pager [phone] with questions. Munira Moore MD Neurological Surgery PGY2 eymarMona aguilar gurpreet - 02/18/2018 6:18 PM PDTPost-Operative Neurological Exam s/p C1 Laminoplasty, Placement o f Occipital Plates, and Extension of Existing PIF to Occiput HPI Mr. Jose Rafael Cisneros is a 67 y/o male with medical history of ankylosing spondylitis, antiphosp holipid syndrome (on Xarelto), insulin-dependent DM, and HTN who fell in the shower on 02/16 and incurred an unstable C2 fracture. Today, he underwent C1 laminoplasty, placement of occi pital places, and extension of his existing hardware to the occiput. Mental Status: A&O to person, place, time, circumstance. Speech is clear and fluent. Cranial Nerves: Visual elaine are full to confrontation in all four quadrants. PERRLA. EOMI in all cardinal directions of gaze. Facial sensation intact to light touch in all 3 divisio ns bilaterally. Face is symmetric with symmetric eye closure and smile. Palate elevates symm etrically. Tongue protrudes midline without deviation. Motor: No pronator drift. Follows commands in all four extremities. Moves all four extremit ies against gravity. Sensory: Intact to light touch in hands and feet. Gait: Not tested. Plan -Cervical collar not needed -Use pneumatic compression stockings until ambulatory -maintain Hemovac Associated attestation - Ibeth Vang MD - 02/18/2018 8:04 PM PDTI agree with document ation by medical student. Jakob Portillo MD - 02/18/2018 2:49 PM PDT Trauma and Surgical ICU Daily Progress Note Author: Jakob Date: 02/17/2018 9:26 AM Hospital Day: 3 ICU Day: 3 HPI: Mr Cisneros is a 67 yo M with ankylosing spondylitis, prior history of C7 fracture (s/p C3-T2 p osterior spinal instrumentation and fusion in 2006), DMII, anti-phospholipid syndrome, and h istory of DVT (on xarelto) who had a GLF in the shower sustaining an unstable fracture of C2 . Procedures: 02/18: C1 laminoplasty, placement of occipital plates, and bridging to existing cervical con struct 24hr Events: hemodyanmically stable Went to the OR with NSG this morning. Did well per signout. Medications and Laboratory Tests: Have been reviewed and can be referenced in the EMR Vital Signs: Last Vitals: BP 134/82 | Pulse 105 | Temp 36.6 C (97.9 F) | RR 12 | Ht 1.778 m (5' 10") | Wt 114.5 kg (252 lb 6.8 oz) | SpO2 95% | BMI 36.22 kg/(m^2) 24 Hour Vital Min/Max: Systolic (24hrs), Av , Min:133 , Max:162 Diastolic (24hrs), Av, Min:52, Max:82 Pulse Min: 67 Max: 105 Temp Min: 36.6 C (97.9 F) Max: 37.1 C (98.8 F) Resp Min: 10 Max: 118 SpO2 Min: 93 % Max: 99 % Intake/Output Summary (Last 24 hours) at 02/18/18 1449 Last data filed at 02/18/18 1400 Gross per 24 hour Intake 7316.67 ml Output 6320 ml Net 996.67 ml Physical Exam: Physical Exam Constitutional: He is oriented to person, place, and time and well-developed, well-nourishe d, and in no distress. No distress. HENT: Head: Normocephalic and atraumatic. Eyes: Pupils are equal, round, and reactive to light. Neck: In C collar Cardiovascular: Normal rate and regular rhythm. Pulmonary/Chest: Effort normal and breath sounds normal. Abdominal: Soft. Genitourinary: Testes/scrotum normal. Penis exhibits no lesions and no edema. Genitourinary Comments: George present yellow urine Neurological: He is alert and oriented to person, place, and time. He has normal strength a nd intact cranial nerves. He is not agitated and not disoriented. He displays no atrophy, no tremor and normal speech. No sensory deficit. GCS score is 15. 5/5 in all extremities, sensation intact Skin: Skin is warm and intact. He is not diaphoretic. Psychiatric: Judgment normal. His affect is not blunt, not labile and not inappropriate. He is not agitated. He is not apathetic. He does not have a flat affect. Summary: Mr Cisneros is a 67 yo M with ankylosing spondylitis, prior history of C7 fracture (s/p C3-T2 p osterior spinal instrumentation and fusion in 2006), DMII, anti-phospholipid syndrome, and h istory of DVT (on xarelto) who had a GLF in the shower sustaining an unstable fracture of C2 . Plans: Neurology: Unstable fracture of bilateral laminae at C2 with 8 mm retrolisthesis of C2 on C3, no evide nce of vascular injury. Neuro intact. - OR on 02/18 for C1 laminoplasty, placement of occipital plates, and bridging to existing c ervical construct - Q4H neuro checks - Continue C collar No acute T and L spine fractures on imaging - FYI to NSG to clear T and L Ankylosing spondylitis - On home adalimumab per records, but patient states he is not aware of this medication and has never taken it Acute on chronic pain: patient takes home morphine PRN, but is well controlled now on the c urrent regimen. - Continue APAP, oxy , prn dilaudid Allergies: - Hold PRN loratadine for allergies HEENT: No acute concerns Pulmonary/Thoracic: No acute concerns Cardiovascular: Hypertension - continue PRN hydralazine - Continue to hold HCTZ, lisinopril; can be restarted on the floor Gastrointestinal/Abdominal: No acute concerns - Patient does have orders for docusate and senna as outpatient, but states he has never ta lorrie them - Continue low intensity bowel regimen Fluids/Electrolytes/Nutrition: Folate deficiency: On folate 0.5 mg daily at home - Continue folic acid 0.4 mg daily Renal: No acute concerns Cr 0.66 Hematology: DVT: Identified on 02/18 in posterior tibial vein at proximal calf. No other venous thrombi detected. - Would recommend therapeutic anticoag when able, heme consulted and appreciate their recs. Discussed with NSG and they state that their recs have not changed. APLA/History of DVT- takes rivaroxaban at home - INR 1.46, TEG nearly normal - had been taking xarelto at home - patient and family cannot remember when he last had a DVT - consult to hematology to assist in risk of holding anticoagulation perioperatively hemato logy and NSG can make a decision together on what the optimal time and medication is to resu me post operatively; appreciate recs from heme as below (will need confirmation from NSG): - Use pneumatic compression stockings during OR and until ambulatory - 24 hours after surgery: start LMWH 40 mg SQ if there is surgical hemostasis - 72 hrs after surgery: increase to LMWH 40 mg SQ BID - 96 hrs after surgery: increase to LMWH 1 mg/kg SQ BID, and START warfarin - Stop LMWH when INR is >2 - Continue warfarin indefinitely, INR goal 2-3 - NSG has their recs in their note, to be started on the floor Infectious Diseases: Leukocytosis: resolved, 21.13 on admission-->12.85. Likely reactive. - Daily CBC - Post-op cefazolin Endocrinology: T2DM- persistent hyperglcemia- - diet resume this afternoon - back on home dose of lantus post-op (33 units nightly) - continue SSI - Can consider uptitration of mealtime insulin on the floor pending CBGs. Vitamin D deficiency - Continue home cholecalciferol 5,000 mg oral daily Thyroid abnormality: Incidental left thyroid lesion seen on CT scan. It is heterogenous and large, measuring 4.2 x 2.6 x 4.8. Patient on levothyroxine 50 mcg daily at home per medical records. TSH on admission within normal limits (2.75; nml 0.5-5.5). Given the large size, w ill likely require additional workup. - Continue home Levothyroxine 50 mcg daily - Consider obtaining additional history from OSH when on floor - Consider further evaluation with ultrasound when on floor RESOLVED ISSUES: None F: Diabetic diet A: APAP, oxydilaudid iv S: None T: holding pending spine surgery- NSG and hematology to determine when to resume theraputic anticoagulation. H:>30 degrees U: none G: insulin glargine 33 units and SSI Y: none B: low intensity I: PIV; removing art line prior to transfer to floor D: none Spines: Maintain C collar at all times- T/L cleared CODE: Full Disposition: Roll to the floor. I spent 37 minutes of critical care time independent of separately billable procedures and and time spent in conjunction with my supervising physicians. Jakob Portillo, PGY-1 Surgery [id number] Division of Trauma Department of Surgery Mail Code: [id number] [address] [place] [address] Associated attestation - Aracelis Whittington MD - 02/21/2018 10:50 PM PDTICU Attending: I saw and examined Jose Rafael Cisneros ([id number]) with the residents on 02/18/18 and agree with t he assessment and plan as outlined in this note and participated in the planning of care. Unstable C2 fracture- OR today for fusion History of antiphospholipid antibody syndrome with DVT and stroke- will need to coordinate with neurological surgery and hematology regarding time frame for initiation of anticoagulat ion Aracelis Whittington MD FACS metal technician Division of Trauma, Critical Care & Acute Care Surgery Munira Fang MD - 02/18/2018 12:52 PM PDT Neurosurgery Progress Note Date: 02/18/2018 Admitting Physician: Deandre Austin MD HPI: Jose Rafael Cisneros is a 67 y.o. male admitted to [facility] for trauma Interval Update: NPO for OR Medications Scheduled Medication: [Oct] acetaminophen 1,000 mg Q8H [Oct] cholecalciferol (Vitamin D3) 2,000 Units DAILY [Oct] folic acid 0.4 mg DAILY [Oct] insulin glargine 15 Units HS [Oct] insulin lispro 5 Units TID W/MEALS [Oct] insulin lispro QID [Oct] levothyroxine 50 mcg DAILY [Oct] multivitamin 1 tablet DAILY [Oct] polyethylene glycol 17 g QPM [Oct] senna 2 tablet BID PRN Medication: [OCT Hold] bacitracin-polymyxin B 1 g PRN [Oct] bisacodyl 10 mg DAILY PRN dextrose 5%-NaCl 0.45% 5-400 mL PRN dextrose 50 % in water 15-150 mL PRN [Oct] dextrose 50 % in water 25 mL PRN fentaNYL 50 mcg POSTPROCEDURE PRN fentaNYL INTRAPROCEDURE PRN [Oct] glucagon 1 mg PRN [Oct] glucose chewable 16 g PRN glucose chewable 4-40 g PRN [Oct] hydrALAZINE 10 mg Q4H PRN HYDROmorphone 0.2-0.5 mg POSTPROCEDURE PRN [Oct] HYDROmorphone 0.5-1 mg Q2H PRN insulin regular 1-50 Units NEEDED (BOLUS) meperidine 25 mg POSTPROCEDURE PRN naloxone POSTPROCEDURE PRN [Oct] nystatin QID PRN [Oct] ondansetron 8 mg Q12H PRN [Oct] oxyCODONE (immediate release) 5-15 mg Q3H PRN [Oct] polyethylene glycol 17 g BID PRN [Oct] prochlorperazine 5-10 mg Q6H PRN [Oct] prochlorperazine 5-10 mg Q6H PRN promethazine 6.25-12.5 mg POSTPROCEDURE PRN promethazine 6.25-12.5 mg POSTPROCEDURE PRN IV Medication: insulin regular [Oct] lactated Ringers Last Rate: Stopped (02/18/18600) Exam Physical Exam: Last 24 hour min/max Temp: 36.6 C (97.9 F) Temp Min: 36.6 C (97.9 F) Max: 37.1 C (98.8 F) Pulse: 74 Pulse Min: 67 Max: 101 Resp: (!) 118 Resp Min: 10 Max: 118 BP: 161/52 BP Min: 128/57 Max: 162/78 SpO2: 99 % SpO2 Min: 93 % Max: 99 % Body mass index is 36.22 kg/m. I/O/Drains Current Shift I/O/Drains Last 3 Shifts 02/18 701 - 02/18 1500 In: 3400 [I.V.:3400] Out: 710 [Urine:210] 02/17 701 - 02/18 0700 In: 4965 [P.O.:2260; I.V.:2455] Out: 5950 [Urine:5950] No Data Recorded No Data Recorded AOx4, speech appropriate, follows commands PERRL, EOMI, FS, TM Neg drift BUE/BLE 5/5 SILT Data Complete Blood Count/Coags Recent Labs 02/17/183002/18/182 02/18/1891102/18/18 1041 WBC 9.36 9.43 -- -- HB 12.6* 13.2* -- -- HCT 37.6* 38.9* 38.0* 38.2* PLT 192 218 -- -- Recent Labs 02/17/183002/18/18 004 INRPT 1.07 1.19 Blood Gas Recent Labs 02/18/1891102/18/18 1041 PH 7.36* 7.40 PCO2 46* 41 PO2 78 81 HCO3 26.0 25.4 [id number] 95.3 96.3 CSF Results No results for input(s): WBCCSF, RBCCSF, GLUCOSECSF, PROTEINCSF in the last 720 hours. Chemistry Recent Labs 02/17/183002/18/184102/18/1891102/18/18 1041 02/18/18 1248 NA 138 -- 135* -- 135 -- 136 -- K 3.9 -- 4.1 -- 4.4 -- 4.4 -- CL 103 -- 101 -- 103 -- 103 -- BICARB 28 -- 24 -- -- -- -- -- BUN 14 -- 11 -- -- -- -- -- CR 0.68* -- 0.68* -- -- -- -- -- GLU 205* < > 146* < > -- < > -- 153* CA 7.9* -- 8.8 -- -- -- -- -- MG 2.1 -- 2.1 -- -- -- -- -- PO4 2.0* -- 3.5 -- -- -- -- -- < > = values in this interval not displayed. Culture Results CULTURE RESULT (no units) Date Value 06/29/2013 C Nasal Source: Nasal Final CULTURE RESULT: No Methicillin resistant Staphylococcus aureus isolated No Methicillin susceptible Staphylococcus aureus isolated. 03/02/2013 C Nasal Source: Nasal GRAM STAIN: No Methicillin resistant Staphylococcus aureus isolated No Methicillin susceptible Staphylococcus aureus isolated. Assesment: Jose Rafael Cisneros is a 67 y.o. male admitted on 02/15/2018 w olivia madsen who had GLF and unstable C2 fracture. PLAN: -OR today -freq neuro checks -cont ccollar -NSGY will follow Please contact the neurosurgery resident on-call pager [phone] with questions. Munira Moore MD Neurological Surgery PGY2 azuMunira Mayo MD - 02/17/2018 9:54 AM PDT . Neurosurgery Progress Note Date: 02/17/2018 Admitting Physician: Deandre Austin MD HPI: Jose Rafael Cisneros is a 67 y.o. male admitted to [facility] for trauma Interval Update: NPO for OR Medications Scheduled Medication: acetaminophen 1,000 mg Q8H cholecalciferol (Vitamin D3) 2,000 Units DAILY folic acid 0.4 mg DAILY insulin glargine 33 Units HS insulin lispro 5 Units TID W/MEALS insulin lispro QID levothyroxine 50 mcg DAILY multivitamin 1 tablet DAILY polyethylene glycol 17 g QPM senna 2 tablet BID PRN Medication: bacitracin-polymyxin B 1 g PRN bisacodyl 10 mg DAILY PRN dextrose 50 % in water 25 mL PRN fentaNYL INTRAPROCEDURE PRN glucagon 1 mg PRN glucose chewable 16 g PRN hydrALAZINE 10 mg Q4H PRN HYDROmorphone 0.5-1 mg Q2H PRN nystatin QID PRN ondansetron 8 mg Q12H PRN oxyCODONE (immediate release) 5-15 mg Q3H PRN polyethylene glycol 17 g BID PRN prochlorperazine 5-10 mg Q6H PRN prochlorperazine 5-10 mg Q6H PRN IV Medication: lactated Ringers Last Rate: 100 mL/hr (02/17/18 0900) Exam Physical Exam: Last 24 hour min/max Temp: 36.6 C (97.9 F) Temp Min: 36.6 C (97.9 F) Max: 37.2 C (99 F) Pulse: 70 Pulse Min: 58 Max: 90 Resp: 12 Resp Min: 8 Max: 22 BP: 137/60 BP Min: 119/57 Max: 174/68 SpO2: 93 % SpO2 Min: 91 % Max: 97 % Body mass index is 36.22 kg/m. I/O/Drains Current Shift I/O/Drains Last 3 Shifts 02/17 701 - 02/17 1500 In: 318.3 [I.V.:318.3] Out: 475 [Urine:475] 02/16 701 - 02/17 0700 In: 2995 [P.O.:1100; I.V.:1895] Out: 2350 [Urine:2350] No Data Recorded No Data Recorded AOx4, speech appropriate, follows commands PERRL, EOMI, FS, TM Neg drift BUE/BLE 12/25 SILT Data Complete Blood Count/Coags Recent Labs 02/16/18 00502/17/18 0031 WBC 12.85* 9.36 HB 13.1* 12.6* HCT 38.7* 37.6* PLT 217 192 Recent Labs 02/15/18 1533 02/17/18 0031 INRPT 1.46* 1.07 Blood Gas No results for input(s): FIO2, PH, PCO2, PO2, HCO3, [id number], A6BDORQT, [id number] in the l ast 720 hours. CSF Results No results for input(s): WBCCSF, RBCCSF, GLUCOSECSF, PROTEINCSF in the last 720 hours. Chemistry Recent Labs 02/16/185102/17/18 00302/17/18 0705 NA 136 -- 138 -- K 3.7 -- 3.9 -- CL 103 -- 103 -- BICARB -- 28 -- BUN 20 -- 14 -- CR 0.66* -- 0.68* -- GLU 158* < > 205* 106* CA 8.3* -- 7.9* -- MG 2.5 -- 2.1 -- PO4 2.5 -- 2.0* -- < > = values in this interval not displayed. Culture Results CULTURE RESULT (no units) Date Value 06/29/2013 C Nasal Source: Nasal Final CULTURE RESULT: No Methicillin resistant Staphylococcus aureus isolated No Methicillin susceptible Staphylococcus aureus isolated. 03/02/2013 C Nasal Source: Nasal GRAM STAIN: No Methicillin resistant Staphylococcus aureus isolated No Methicillin susceptible Staphylococcus aureus isolated. Assesment: Jose Rafael Cisneros is a 67 y.o. male admitted on 02/15/2018 w olivia madsen who had GLF and unstable C2 fracture. PLAN: -OR today -freq neuro checks -cont ccollar -NSGY will follow Please contact the neurosurgery resident on-call pager [phone] with questions. Munira Moore MD Neurological Surgery PGY2 andana Lora PA-C - 02/17/2018 7:29 AM PDT . Trauma and Surgical ICU Daily Progress Note Author: Vandana Lora PA-C Date: 02/17/2018 9:26 AM Hospital Day: 2 ICU Day: 1 HPI: Mr Cisneros is a 67 yo M with ankylosing spondylitis, prior history of C7 fracture (s/p C3-T2 p osterior spinal instrumentation and fusion in 2006), DMII, anti-phospholipid syndrome, and h istory of DVT (on xarelto) who had a GLF in the shower sustaining an unstable fracture of C2 . Procedures: None 24hr Events: hemodyanmically stable Medications and Laboratory Tests: Have been reviewed and can be referenced in the EMR Vital Signs: Last Vitals: BP 139/72 | Pulse 73 | Temp 36.7 C (98.1 F) | RR 15 | Ht 1.778 m (5' 10") | Wt 114.5 kg (252 lb 6.8 oz) | SpO2 93% | BMI 36.22 kg/(m^2) 24 Hour Vital Min/Max: Systolic (24hrs), Av , Min:119 , Max:174 Diastolic (24hrs), Av, Min:57, Max:80 Pulse Min: 58 Max: 90 Temp Min: 36.7 C (98.1 F) Max: 37.2 C (99 F) Resp Min: 8 Max: 22 SpO2 Min: 91 % Max: 97 % Intake/Output Summary (Last 24 hours) at 02/17/18 0792 Last data filed at 02/17/18 0705 Gross per 24 hour Intake 3103.33 ml Output 2350 ml Net 753.33 ml Physical Exam: Physical Exam Constitutional: He is oriented to person, place, and time and well-developed, well-nourishe d, and in no distress. No distress. HENT: Head: Normocephalic and atraumatic. Eyes: Pupils are equal, round, and reactive to light. Neck: In C collar Cardiovascular: Normal rate and regular rhythm. Pulmonary/Chest: Effort normal and breath sounds normal. Abdominal: Soft. Genitourinary: Testes/scrotum normal. Penis exhibits no lesions and no edema. Genitourinary Comments: George present yellow urine Neurological: He is alert and oriented to person, place, and time. He has normal strength a nd intact cranial nerves. He is not agitated and not disoriented. He displays no atrophy, no tremor and normal speech. No sensory deficit. GCS score is 15. 5/5 in all extremities, sensation intact Skin: Skin is warm and intact. He is not diaphoretic. Psychiatric: Judgment normal. His affect is not blunt, not labile and not inappropriate. He is not agitated. He is not apathetic. He does not have a flat affect. Summary: Mr Cisneros is a 67 yo M with ankylosing spondylitis, prior history of C7 fracture (s/p C3-T2 p osterior spinal instrumentation and fusion in 2006), DMII, anti-phospholipid syndrome, and h istory of DVT (on xarelto) who had a GLF in the shower sustaining an unstable fracture of C2 . Plans: Neurology: Unstable fracture of bilateral laminae at C2 with 8 mm retrolisthesis of C2 on C3, no evide nce of vascular injury. Neuro intact. - OR bumped until 02/18 AM - Q1H neuro checks - Continue C collar- with strict c-spine precautions and minimal movement No acute T and L spine fractures on imaging - FYI to NS to clear T and L Ankylosing spondylitis - On home adalimumab per records, but patient states he is not aware of this medication and has never taken it Acute on chronic pain: patient takes home morphine PRN, but is well controlled now on the c urrent regimen. - Continue APAP, oxy , prn dilaudid Allergies: - Hold PRN loratadine for allergies HEENT: No acute concerns Pulmonary/Thoracic: No acute concerns Cardiovascular: Hypertension - continue PRN hydralazine - Continue to hold HCTZ, lisinopril home meds in setting of upcoming surgery Gastrointestinal/Abdominal: No acute concerns - Patient does have orders for docusate and senna as outpatient, but states he has never ta lorrie them - Continue low intensity bowel regimen Fluids/Electrolytes/Nutrition: Folate deficiency: On folate 0.5 mg daily at home - Continue folic acid 0.4 mg daily Renal: No acute concerns Cr 0.66 Hematology: APLA/History of DVT- takes rivaroxaban at home - INR 1.46, TEG nearly normal - continue to hold xarelto in setting of upcoming surgery -patient and family cannot remember when he last had a DVT - consult to hematology to assist in risk of holding anticoagulation perioperatively hemato logy and NSG can make a decision together on what the optimal time and medication is to resu me post operatively Infectious Diseases: Leukocytosis: resolved, 21.13 on admission-->12.85. Likely reactive. - Daily CBC Endocrinology: T2DM- persistent hyperglcemia- 106-205 - received home lantus last night, will be NPO in OR tomorrow -diet resume this afternoon- will be NPO at midnight- decreased to 15 lantus overnight ; co ntinue SSI Vitamin D deficiency - Continue home cholecalciferol 5,000 mg oral daily Thyroid abnormality: Incidental left thyroid lesion seen on CT scan. It is heterogenous and large, measuring 4.2 x 2.6 x 4.8. Patient on levothyroxine 50 mcg daily at home per medical records. TSH on admission within normal limits (2.75; nml 0.5-5.5). Given the large size, w ill likely require additional workup. - Continue home Levothyroxine 50 mcg daily - Will obtain additional history from OSH - Will further evaluate with ultrasound when c collar is cleared RESOLVED ISSUES: None F: NPO A: APAP, oxydilaudid iv S: None T: holding pending spine surgery- NSG and hematology to determine when to resume theraputic anticoagulation H:>30 degrees U: none G: insulin glargine 15 units tonight and SSI Y: none B: low intensity I: PIV D: none Spines: Strict cervical spine precautions- T/L cleared CODE: Full Disposition: Remain in ICU > 24 I spent 37 minutes of critical care time independent of separately billable procedures and and time spent in conjunction with my supervising physicians. Vandana Lora PA-C Division of Trauma Department of Surgery Mail Code: [id number] [place] [address] Associated attestation - Aracelis Whittington MD - 02/19/2018 10:54 PM PDTICU Attending: I saw and examined Jose Rafael Cisneros ([id number]) with Vandana Lora PA-C on 02/17/18 and agree with the assessment and plan as outlined in this note and participated in the planning of c are. * Acute traumatic on chronic pain- PRN hydromorphone and oxycodone, scheduled acetaminophen . * Unstable C2 fracture- continue cervical immbolization collar and OR with neurological ni braeden possibly today * Antiphospholipid antibody with history of DVT and stroke- rivaroxaban on hold. Hematology to consult today, may need IVC filter as may not able to start therapeutic anticoagulation for several days after spine surgery. Aracelis Whittington MD FACS registered nurse float pool Division of Trauma, Critical Care & Acute Care Surgery Jakob Portillo MD - 02/16/2018 3:38 PM PDTPer neurosurgery, case canceled today due to OR availability. Diabetic diet started. NPO at midnight for OR 02/17. Jakob Portillo, PGY-1 Surgery [id number] Jamie Hutton MD - 0 02/16/2018 11:34 AM PDTNeurosurgery Preoperative Note Planned procedure: Ext of fusion to Occiput, C1 lami Date of procedure: 02/16/18 Booked? Yes Consented? Yes Marked? Yes NPO time: 0015 02/16/18 Labs/Studies Hct: 38.7 | Plt: 217 | INR: 1.46 Type and Screen obtained/date? Yes - 02/15/18 If over 50, EKG obtained this admission (Yes/No/NA)? No If over 50, CXR obtained this admission (Yes/No/NA)? No Medications ACEI/ARBs held day prior to surgery (Yes/No/NA)? NA Lovenox held day prior to surgery (Yes/No/NA)? Yes On ASA or other antiplatelet agent? No Previously on xarelto Jamie Parra MD Neurosurgery PGY1 [id number] Jakob mullen MD - 0 02/16/2018 9:25 AM PDT Trauma and Surgical ICU Daily Progress Note Author: Jakob Portillo MD Date: 02/16/2018 9:26 AM Hospital Day: 1 ICU Day: 1 HPI: Mr Cisneros is a 67 yo M with ankylosing spondylitis, prior history of C7 fracture (s/p C3-T2 p osterior spinal instrumentation and fusion in 2006), DMII, anti-phospholipid syndrome, and h istory of DVT (on xarelto) who had a GLF in the shower sustaining an unstable fracture of C2 . Procedures: None 24hr Events: Admitted to TSICU NPO CTA showing no vascular injury Troponins peaked at 0.13, then downtrended to 0.08 Medications and Laboratory Tests: Have been reviewed and can be referenced in the EMR Vital Signs: Last Vitals: BP 139/60 | Pulse 66 | Temp 36.8 C (98.2 F) | RR 12 | Ht 1.778 m (5' 10") | Wt 114.5 kg (252 lb 6.8 oz) | SpO2 96% | BMI 36.22 kg/(m^2) 24 Hour Vital Min/Max: Systolic (24hrs), Av , Min:106 , Max:149 Diastolic (24hrs), Av, Min:51, Max:82 Pulse Min: 62 Max: 88 Temp Min: 36.7 C (98 F) Max: 37 C (98.6 F) Resp Min: 10 Max: 22 SpO2 Min: 90 % Max: 98 % Intake/Output Summary (Last 24 hours) at 02/16/18 09 Last data filed at 02/16/18 0900 Gross per 24 hour Intake 2030 ml Output 1725 ml Net 305 ml Physical Exam: Physical Exam Constitutional: He is oriented to person, place, and time and well-developed, well-nourishe d, and in no distress. No distress. HENT: Head: Normocephalic and atraumatic. Eyes: Conjunctivae and EOM are normal. Pupils are equal, round, and reactive to light. Neck: In C collar Cardiovascular: Normal rate, regular rhythm, normal heart sounds and intact distal pulses. Exam reveals no gallop and no friction rub. No murmur heard. Pulmonary/Chest: Effort normal and breath sounds normal. No respiratory distress. He has no wheezes. He has no rales. He exhibits no tenderness. Abdominal: Genitourinary: Testes/scrotum normal and penis normal. Penis exhibits no lesions and no huong ma. No discharge found. Neurological: He is alert and oriented to person, place, and time. He has normal strength, normal reflexes and intact cranial nerves. He is not agitated and not disoriented. He displa ys no atrophy, no tremor, normal speech and normal reflexes. No cranial nerve deficit or sen miguel deficit. GCS score is 15. Skin: Skin is warm, dry and intact. He is not diaphoretic. Psychiatric: Judgment normal. His affect is not blunt, not labile and not inappropriate. He is not agitated. He is not apathetic. He does not have a flat affect. Summary: Mr Cisneros is a 67 yo M with ankylosing spondylitis, prior history of C7 fracture (s/p C3-T2 p osterior spinal instrumentation and fusion in 2006), DMII, anti-phospholipid syndrome, and h istory of DVT (on xarelto) who had a GLF in the shower sustaining an unstable fracture of C2 . Plans: Musculoskeletal/Skin: Unstable fracture of bilateral laminae at C2 with 8 mm retrolisthesis of C2 on C3, no evide nce of vascular injury. Neuro intact. - OR today with NSG - Q1H neuro checks - Continue C collar - NSG consulted, appreciate their recs No acute T and L spine fractures on imaging - FYI to NSG to clear T and L Ankylosing spondylitis - On home adalimumab per records, but patient states he is not aware of this medication and has never taken it Neurology: Acute pain: patient takes home morphine PRN, but is well controlled now on the current roderick men. - Continue APAP, oxy 2.5-5, dilaudid iv Allergies: - Hold PRN loratadine for allergies HEENT: No acute concerns Pulmonary/Thoracic: No acute concerns Cardiovascular: Hypertension - Start PRN hydralazine - Continue to hold HCTZ, lisinopril home meds in setting of upcoming surgery Gastrointestinal/Abdominal: No acute concerns - Patient does have orders for docusate and senna as outpatient, but states he has never ta lorrie them - Continue low intensity bowel regimen Fluids/Electrolytes/Nutrition: Folate deficiency: On folate 0.5 mg daily at home - Started on folic acid 0.4 mg daily Renal: No acute concerns Cr 0.66 Hematology: #History of DVT - INR 1.46, TEG nearly normal - continue to hold xarelto in setting of upcoming surgery - Need to have plan for after OR from [facility]. proph sooner? Infectious Diseases: No acute concerns Leukocytosis: 21.13 on admission-->12.85. Likely reactive. - Daily CBC Endocrinology: T2DM Hyperglycemic overnight to 158 - Continue home basal dose of glargine 33 units nightly - Continue mealtime insulin 5 units TID with moderate sliding scale - May consider increasing mealtime insulin if needed after OR. Home dose is 8-10 units with meals. Vitamin D deficiency - Continue home cholecalciferol 5,000 mg oral daily Thyroid abnormality: Incidental left thyroid lesion seen on CT scan. It is heterogenous and large, measuring 4.2 x 2.6 x 4.8. Patient on levothyroxine 50 mcg daily at home per medical records. TSH on admission within normal limits (2.75; nml 0.5-5.5). Given the large size, w ill likely require additional workup. - Start home Levothyroxine 50 mcg daily - Will obtain additional history from OSH - Will further evaluate with ultrasound when c collar is cleared RESOLVED ISSUES: None F: 125 mL/hr A: APAP, oxy 2.5-5, dilaudid iv S: None T: holding pending spine surgery H:>30 degrees U: none G: insulin glargine 33 units with 5 units mealtime and moderate SSI Y: none B: low intensity I: PIV D: none Spines: full spine precautions CODE: Full Disposition: Given APLA and potentially difficult cervical spinal surgery, will return to ICU following OR with plan to transfer to [facility] 02/17 if he remains stable I spent 40 minutes of critical care time independent of separately billable procedures and and time spent in conjunction with my supervising physicians. Jakob Portillo MD Division of Trauma Department of Surgery Mail Code: [id number] [address] [place] [address] Associated attestation - Aracelis Whittington MD - 02/17/2018 4:00 PM PDTAttending: I saw and examined Jose Rafael Cisneros ([id number]) with the residents on 02/16/18 and agree with t he assessment and plan as outlined in this note and participated in the planning of care. Aracelis Whittington MD FACS registered nurse float pool Division of Trauma, Critical Care & Acute Care Surgery Munira Fang MD - 02/16/2018 5:00 AM PDT Neurosurgery Progress Note Date: 02/16/2018 Author: MUNIRA JACKSON MD Admitting Physician: Deandre Austin MD HPI: Jose Rafael Cisneros is a 67 y.o. male admitted to [facility] for trauma Interval Update: NPO for OR Medications Scheduled Medication: acetaminophen 1,000 mg Q8H cholecalciferol (Vitamin D3) 5,000 Units DAILY insulin glargine 33 Units HS insulin lispro 5 Units TID W/MEALS insulin lispro QID levothyroxine 50 mcg DAILY multivitamin 1 tablet DAILY polyethylene glycol 17 g QPM potassium chloride SR 20 mEq ONCE potassium, sodium phosphates 2 packet ONCE senna 2 tablet BID PRN Medication: bacitracin-polymyxin B 1 g PRN bisacodyl 10 mg DAILY PRN dextrose 50 % in water 25 mL PRN fentaNYL INTRAPROCEDURE PRN glucagon 1 mg PRN glucose chewable 16 g PRN HYDROmorphone 0.2-0.6 mg Q4H PRN nystatin QID PRN ondansetron 8 mg Q12H PRN oxyCODONE (immediate release) 2.5-5 mg Q4H PRN polyethylene glycol 17 g BID PRN prochlorperazine 5-10 mg Q6H PRN prochlorperazine 5-10 mg Q6H PRN IV Medication: Exam Physical Exam: Last 24 hour min/max Temp: 36.9 C (98.4 F) Temp Min: 36.7 C (98 F) Max: 37 C (98.6 F) Pulse: 77 Pulse Min: 67 Max: 88 Resp: 22 Resp Min: 10 Max: 22 BP: 121/60 BP Min: 107/51 Max: 149/70 SpO2: 97 % SpO2 Min: 90 % Max: 98 % Body mass index is 36.22 kg/m. I/O/Drains Current Shift I/O/Drains Last 3 Shifts 02/15 2301 - 02/16 07 In: - Out: 1200 [Urine:1200] 02/14 2301 - 02/15 2300 In: 1890 [P.O.:850; I.V.:1040] Out: 525 [Urine:525] No Data Recorded No Data Recorded AOx4, speech appropriate, follows commands PERRL, EOMI, FS, TM Neg drift BUE/BLE 12/25 SILT Data Complete Blood Count/Coags Recent Labs 02/15/18 1533 02/15/18 1625 02/16/18 0052 WBC 21.13* -- 12.85* HB 14.9 16.7 13.1* HCT 44.5 49 38.7* PLT 271 -- 217 Recent Labs 02/15/18 1533 INRPT 1.46* Blood Gas No results for input(s): FIO2, PH, PCO2, PO2, HCO3, VEKDJ2ILO, B7CHKESS, B0GPFIIXO in the l ast 720 hours. CSF Results No results for input(s): WBCCSF, RBCCSF, GLUCOSECSF, PROTEINCSF in the last 720 hours. Chemistry Recent Labs 02/15/18 1533 02/15/18 1625 02/16/18 0052 NA 136 136 -- 136 K 4.3 4.3 -- 3.7 CL 102 99.0 -- 103 BICARB 26 -- -- 26 BUN 28* 28* -- 20 CR 0.76 0.8 -- 0.66* GLU 166* 167* < > 158* CA 8.7 -- -- 8.3* MG -- -- -- 2.5 PO4 3.6 -- -- 2.5 < > = values in this interval not displayed. Culture Results CULTURE RESULT (no units) Date Value 06/29/2013 C Nasal Source: Nasal Final CULTURE RESULT: No Methicillin resistant Staphylococcus aureus isolated No Methicillin susceptible Staphylococcus aureus isolated. 03/02/2013 C Nasal Source: Nasal GRAM STAIN: No Methicillin resistant Staphylococcus aureus isolated No Methicillin susceptible Staphylococcus aureus isolated. Assesment: Jose Rafael Cisneros is a 67 y.o. male admitted on 02/15/2018 w olivia madsen who had GLF and unstable C2 fracture. PLAN: -OR today -freq neuro checks -cont ccollar -NSGY will follow Please contact the neurosurgery resident on-call pager [phone] with questions. Munira Moore MD Neurological Surgery PGY2 documented in thi s encounter Plan of Treatment Not on filedocumented as of this encounter Procedures + +--------+ + + + | Procedure Name | Priori | Date/Time | Associated Diagnosis | Comments | | | ty | | | | + +--------+ + + + | CAPILLARY BLOOD | Routin | 02/22/2018 | Closed displaced | Results for this | | GLUCOSE (NO CHG), | e | 7:42 PM | fracture of second | procedure are in the | | POC | | PDT | cervical vertebra, | results section. | | | | | unspecified fracture | | | | | | morphology, initial | | | | | | encounter (HCC) | | + +--------+ + + + | X-RAY SPINE CERVICAL | Routin | 02/22/2018 | | Results for this | | 2 VIEWS | e | 2:58 PM | | procedure are in the | | | | PDT | | results section. | + +--------+ + + + | CAPILLARY BLOOD | Routin | 02/22/2018 | Closed displaced | Results for this | | GLUCOSE (NO CHG), | e | 1:03 PM | fracture of second | procedure are in the | | POC | | PDT | cervical vertebra, | results section. | | | | | unspecified fracture | | | | | | morphology, initial | | | | | | encounter (HCC) | | + +--------+ + + + | CBC (HEMOGRAM) ONLY | Urgent | 02/22/2018 | | Results for this | | | | 9:20 AM | | procedure are in the | | | | PDT | | results section. | + +--------+ + + + | CBC ONLY | Urgent | 02/22/2018 | | Results for this | | | | 9:20 AM | | procedure are in the | | | | PDT | | results section. | + +--------+ + + + | CAPILLARY BLOOD | Routin | 02/22/2018 | Closed displaced | Results for this | | GLUCOSE (NO CHG), | e | 7:19 AM | fracture of second | procedure are in the | | POC | | PDT | cervical vertebra, | results section. | | | | | unspecified fracture | | | | | | morphology, initial | | | | | | encounter (HCC) | | + +--------+ + + + | CAPILLARY BLOOD | Routin | 02/21/2018 | Closed displaced | Results for this | | GLUCOSE (NO CHG), | e | 11:58 PM | fracture of second | procedure are in the | | POC | | PDT | cervical vertebra, | results section. | | | | | unspecified fracture | | | | | | morphology, initial | | | | | | encounter (HCC) | | + +--------+ + + + | CAPILLARY BLOOD | Routin | 02/21/2018 | Closed displaced | Results for this | | GLUCOSE (NO CHG), | e | 8:54 PM | fracture of second | procedure are in the | | POC | | PDT | cervical vertebra, | results section. | | | | | unspecified fracture | | | | | | morphology, initial | | | | | | encounter (HCC) | | + +--------+ + + + | CAPILLARY BLOOD | Routin | 02/21/2018 | Closed displaced | Results for this | | GLUCOSE (NO CHG), | e | 6:59 PM | fracture of second | procedure are in the | | POC | | PDT | cervical vertebra, | results section. | | | | | unspecified fracture | | | | | | morphology, initial | | | | | | encounter (HCC) | | + +--------+ + + + | CAPILLARY BLOOD | Routin | 02/21/2018 | Closed displaced | Results for this | | GLUCOSE (NO CHG), | e | 1:17 PM | fracture of second | procedure are in the | | POC | | PDT | cervical vertebra, | results section. | | | | | unspecified fracture | | | | | | morphology, initial | | | | | | encounter (HCC) | | + +--------+ + + + | CBC (HEMOGRAM) ONLY | Urgent | 02/21/2018 | | Results for this | | | | 10:18 AM | | procedure are in the | | | | PDT | | results section. | + +--------+ + + + | CBC ONLY | Urgent | 02/21/2018 | | Results for this | | | | 10:18 AM | | procedure are in the | | | | PDT | | results section. | + +--------+ + + + | CAPILLARY BLOOD | Routin | 02/21/2018 | Closed displaced | Results for this | | GLUCOSE (NO CHG), | e | 7:48 AM | fracture of second | procedure are in the | | POC | | PDT | cervical vertebra, | results section. | | | | | unspecified fracture | | | | | | morphology, initial | | | | | | encounter (HCC) | | + +--------+ + + + | CAPILLARY BLOOD | Routin | 02/20/2018 | Closed displaced | Results for this | | GLUCOSE (NO CHG), | e | 10:54 PM | fracture of second | procedure are in the | | POC | | PDT | cervical vertebra, | results section. | | | | | unspecified fracture | | | | | | morphology, initial | | | | | | encounter (HCC) | | + +--------+ + + + | CAPILLARY BLOOD | Routin | 02/20/2018 | Closed displaced | Results for this | | GLUCOSE (NO CHG), | e | 7:16 PM | fracture of second | procedure are in the | | POC | | PDT | cervical vertebra, | results section. | | | | | unspecified fracture | | | | | | morphology, initial | | | | | | encounter (HCC) | | + +--------+ + + + | CBC (HEMOGRAM) ONLY | Urgent | 02/20/2018 | | Results for this | | | | 1:51 PM | | procedure are in the | | | | PDT | | results section. | + +--------+ + + + | CBC ONLY | Urgent | 02/20/2018 | | Results for this | | | | 1:51 PM | | procedure are in the | | | | PDT | | results section. | + +--------+ + + + | US SOFT TISSUE HEAD | Routin | 02/20/2018 | | Results for this | | & NECK | e | 1:09 PM | | procedure are in the | | | | PDT | | results section. | + +--------+ + + + | CAPILLARY BLOOD | Routin | 02/20/2018 | Closed displaced | Results for this | | GLUCOSE (NO CHG), | e | 10:04 AM | fracture of second | procedure are in the | | POC | | PDT | cervical vertebra, | results section. | | | | | unspecified fracture | | | | | | morphology, initial | | | | | | encounter (HCC) | | + +--------+ + + + | CAPILLARY BLOOD | Routin | 02/19/2018 | Closed displaced | Results for this | | GLUCOSE (NO CHG), | e | 11:35 PM | fracture of second | procedure are in the | | POC | | PDT | cervical vertebra, | results section. | | | | | unspecified fracture | | | | | | morphology, initial | | | | | | encounter (HCC) | | + +--------+ + + + | CAPILLARY BLOOD | Routin | 02/19/2018 | Closed displaced | Results for this | | GLUCOSE (NO CHG), | e | 8:30 PM | fracture of second | procedure are in the | | POC | | PDT | cervical vertebra, | results section. | | | | | unspecified fracture | | | | | | morphology, initial | | | | | | encounter (HCC) | | + +--------+ + + + | CAPILLARY BLOOD | Routin | 02/19/2018 | Closed displaced | Results for this | | GLUCOSE (NO CHG), | e | 12:29 PM | fracture of second | procedure are in the | | POC | | PDT | cervical vertebra, | results section. | | | | | unspecified fracture | | | | | | morphology, initial | | | | | | encounter (HCC) | | + +--------+ + + + | CBC (HEMOGRAM) ONLY | Urgent | 02/19/2018 | | Results for this | | | | 9:02 AM | | procedure are in the | | | | PDT | | results section. | + +--------+ + + + | CBC ONLY | Urgent | 02/19/2018 | | Results for this | | | | 9:02 AM | | procedure are in the | | | | PDT | | results section. | + +--------+ + + + | CAPILLARY BLOOD | Routin | 02/19/2018 | Closed displaced | Results for this | | GLUCOSE (NO CHG), | e | 8:55 AM | fracture of second | procedure are in the | | POC | | PDT | cervical vertebra, | results section. | | | | | unspecified fracture | | | | | | morphology, initial | | | | | | encounter (HCC) | | + +--------+ + + + | CAPILLARY BLOOD | Routin | 02/18/2018 | Closed displaced | Results for this | | GLUCOSE (NO CHG), | e | 10:16 PM | fracture of second | procedure are in the | | POC | | PDT | cervical vertebra, | results section. | | | | | unspecified fracture | | | | | | morphology, initial | | | | | | encounter (HCC) | | + +--------+ + + + | CAPILLARY BLOOD | Routin | 02/18/2018 | Closed displaced | Results for this | | GLUCOSE (NO CHG), | e | 5:29 PM | fracture of second | procedure are in the | | POC | | PDT | cervical vertebra, | results section. | | | | | unspecified fracture | | | | | | morphology, initial | | | | | | encounter (HCC) | | + +--------+ + + + | PROCEDURE NOTE | Routin | 02/18/2018 | | Results for this | | | e | 3:25 PM | | procedure are in the | | | | PDT | | results section. | + +--------+ + + + | VASC LAB VENOUS | Routin | 02/18/2018 | | Results for this | | DUPLEX LOWER | e | 3:17 PM | | procedure are in the | | EXTREMITY BILAT COMP | | PDT | | results section. | + +--------+ + + + | OPERATION RECORD | | 02/18/2018 | | Results for this | | | | 1:17 PM | | procedure are in the | | | | PDT | | results section. | + +--------+ + + + | CAPILLARY BLOOD | Routin | 02/18/2018 | Closed displaced | Results for this | | GLUCOSE (NO CHG), | e | 12:48 PM | fracture of second | procedure are in the | | POC | | PDT | cervical vertebra, | results section. | | | | | unspecified fracture | | | | | | morphology, initial | | | | | | encounter (HCC) | | + +--------+ + + + | PROCEDURE NOTE | Routin | 02/18/2018 | | Results for this | | | e | 12:21 PM | | procedure are in the | | | | PDT | | results section. | + +--------+ + + + | X-RAY SPINE CERVICAL | Urgent | 02/18/2018 | | Results for this | | 2 VIEWS | | 11:51 AM | | procedure are in the | | | | PDT | | results section. | + +--------+ + + + | X-RAY FLUOROSCOPY IN | Urgent | 02/18/2018 | | Results for this | | OR > 1 HOUR | | 11:50 AM | | procedure are in the | | | | PDT | | results section. | + +--------+ + + + | ABG-FULL ABL, POC | Urgent | 02/18/2018 | Closed displaced | Results for this | | | | 10:41 AM | fracture of second | procedure are in the | | | | PDT | cervical vertebra, | results section. | | | | | unspecified fracture | | | | | | morphology, initial | | | | | | encounter (HCC) | | + +--------+ + + + | CAPILLARY BLOOD | Routin | 02/18/2018 | Closed displaced | Results for this | | GLUCOSE (NO CHG), | e | 10:16 AM | fracture of second | procedure are in the | | POC | | PDT | cervical vertebra, | results section. | | | | | unspecified fracture | | | | | | morphology, initial | | | | | | encounter (HCC) | | + +--------+ + + + | ABG-FULL ABL, POC | Urgent | 02/18/2018 | Closed displaced | Results for this | | | | 9:12 AM | fracture of second | procedure are in the | | | | PDT | cervical vertebra, | results section. | | | | | unspecified fracture | | | | | | morphology, initial | | | | | | encounter (HCC) | | + +--------+ + + + | POSTERIOR SPINAL | Urgent | 02/18/2018 | C2 FRACTURE | | | FUSION CERVICAL | | 7:30 AM | | | | | Surgic | PDT | | | | | al | | | | + +--------+ + + + +---+--------+ | | | | | Specia | | | l | | | Needs | | | 8C | | | ICU | | | POST | | | OP | +---+--------+ + +--------+ + + + | CAPILLARY BLOOD | Routin | 02/18/2018 | Closed displaced | Results for this | | GLUCOSE (NO CHG), | e | 6:01 AM | fracture of second | procedure are in the | | POC | | PDT | cervical vertebra, | results section. | | | | | unspecified fracture | | | | | | morphology, initial | | | | | | encounter (HCC) | | + +--------+ + + + | CBC (HEMOGRAM) ONLY | Urgent | 02/18/2018 | | Results for this | | | | 12:42 AM | | procedure are in the | | | | PDT | | results section. | + +--------+ + + + | INR | Urgent | 02/18/2018 | | Results for this | | | | 12:42 AM | | procedure are in the | | | | PDT | | results section. | + +--------+ + + + | RENAL FUNCTION SET | Urgent | 02/18/2018 | | Results for this | | (NA,K,CL,CO2,BUN,CRE | | 12:42 AM | | procedure are in the | | AT,GLUC,CA,PHOS,ALB | | PDT | | results section. | | ) | | | | | + +--------+ + + + | CBC ONLY | Urgent | 02/18/2018 | | Results for this | | | | 12:42 AM | | procedure are in the | | | | PDT | | results section. | + +--------+ + + + | MAGNESIUM, PLASMA | Urgent | 02/18/2018 | | Results for this | | | | 12:42 AM | | procedure are in the | | | | PDT | | results section. | + +--------+ + + + | INTRAOPERATIVE NEURO | Routin | 02/18/2018 | | Results for this | | MONITORING | e | | | procedure are in the | | | | | | results section. | + +--------+ + + + | CAPILLARY BLOOD | Routin | 02/17/2018 | Closed displaced | Results for this | | GLUCOSE (NO CHG), | e | 9:57 PM | fracture of second | procedure are in the | | POC | | PDT | cervical vertebra, | results section. | | | | | unspecified fracture | | | | | | morphology, initial | | | | | | encounter (HCC) | | + +--------+ + + + | CAPILLARY BLOOD | Routin | 02/17/2018 | Closed displaced | Results for this | | GLUCOSE (NO CHG), | e | 6:12 PM | fracture of second | procedure are in the | | POC | | PDT | cervical vertebra, | results section. | | | | | unspecified fracture | | | | | | morphology, initial | | | | | | encounter (HCC) | | + +--------+ + + + | CAPILLARY BLOOD | Routin | 02/17/2018 | Closed displaced | Results for this | | GLUCOSE (NO CHG), | e | 6:09 PM | fracture of second | procedure are in the | | POC | | PDT | cervical vertebra, | results section. | | | | | unspecified fracture | | | | | | morphology, initial | | | | | | encounter (HCC) | | + +--------+ + + + | CAPILLARY BLOOD | Routin | 02/17/2018 | Closed displaced | Results for this | | GLUCOSE (NO CHG), | e | 11:46 AM | fracture of second | procedure are in the | | POC | | PDT | cervical vertebra, | results section. | | | | | unspecified fracture | | | | | | morphology, initial | | | | | | encounter (HCC) | | + +--------+ + + + | CAPILLARY BLOOD | Routin | 02/17/2018 | Closed displaced | Results for this | | GLUCOSE (NO CHG), | e | 7:05 AM | fracture of second | procedure are in the | | POC | | PDT | cervical vertebra, | results section. | | | | | unspecified fracture | | | | | | morphology, initial | | | | | | encounter (HCC) | | + +--------+ + + + | CBC (HEMOGRAM) ONLY | Urgent | 02/17/2018 | | Results for this | | | | 12:31 AM | | procedure are in the | | | | PDT | | results section. | + +--------+ + + + | INR | Urgent | 02/17/2018 | | Results for this | | | | 12:31 AM | | procedure are in the | | | | PDT | | results section. | + +--------+ + + + | RENAL FUNCTION SET | Urgent | 02/17/2018 | | Results for this | | (NA,K,CL,CO2,BUN,CRE | | 12:31 AM | | procedure are in the | | AT,GLUC,CA,PHOS,ALB | | PDT | | results section. | | ) | | | | | + +--------+ + + + | CBC ONLY | Urgent | 02/17/2018 | | Results for this | | | | 12:31 AM | | procedure are in the | | | | PDT | | results section. | + +--------+ + + + | MAGNESIUM, PLASMA | Urgent | 02/17/2018 | | Results for this | | | | 12:31 AM | | procedure are in the | | | | PDT | | results section. | + +--------+ + + + | CAPILLARY BLOOD | Routin | 02/16/2018 | Closed displaced | Results for this | | GLUCOSE (NO CHG), | e | 8:55 PM | fracture of second | procedure are in the | | POC | | PDT | cervical vertebra, | results section. | | | | | unspecified fracture | | | | | | morphology, initial | | | | | | encounter (HCC) | | + +--------+ + + + | CAPILLARY BLOOD | Routin | 02/16/2018 | Closed displaced | Results for this | | GLUCOSE (NO CHG), | e | 5:46 PM | fracture of second | procedure are in the | | POC | | PDT | cervical vertebra, | results section. | | | | | unspecified fracture | | | | | | morphology, initial | | | | | | encounter (HCC) | | + +--------+ + + + | 12 LEAD ECG | Routin | 02/16/2018 | | Results for this | | | e | 3:03 PM | | procedure are in the | | | | PDT | | results section. | + +--------+ + + + | CAPILLARY BLOOD | Routin | 02/16/2018 | Closed displaced | Results for this | | GLUCOSE (NO CHG), | e | 11:36 AM | fracture of second | procedure are in the | | POC | | PDT | cervical vertebra, | results section. | | | | | unspecified fracture | | | | | | morphology, initial | | | | | | encounter (HCC) | | + +--------+ + + + | CAPILLARY BLOOD | Routin | 02/16/2018 | Closed displaced | Results for this | | GLUCOSE (NO CHG), | e | 8:57 AM | fracture of second | procedure are in the | | POC | | PDT | cervical vertebra, | results section. | | | | | unspecified fracture | | | | | | morphology, initial | | | | | | encounter (HCC) | | + +--------+ + + + | CBC (HEMOGRAM) ONLY | Urgent | 02/16/2018 | | Results for this | | | | 12:52 AM | | procedure are in the | | | | PDT | | results section. | + +--------+ + + + | VITAMIN D, | Urgent | 02/16/2018 | | Results for this | | 25-HYDROXY, SERUM | | 12:52 AM | | procedure are in the | | | | PDT | | results section. | + +--------+ + + + | TROPONIN I, PLASMA | Urgent | 02/16/2018 | | Results for this | | | | 12:52 AM | | procedure are in the | | | | PDT | | results section. | + +--------+ + + + | RENAL FUNCTION SET | Urgent | 02/16/2018 | | Results for this | | (NA,K,CL,CO2,BUN,CRE | | 12:52 AM | | procedure are in the | | AT,GLUC,CA,PHOS,ALB | | PDT | | results section. | | ) | | | | | + +--------+ + + + | CBC ONLY | Urgent | 02/16/2018 | | Results for this | | | | 12:52 AM | | procedure are in the | | | | PDT | | results section. | + +--------+ + + + | TSH | Urgent | 02/16/2018 | | Results for this | | | | 12:52 AM | | procedure are in the | | | | PDT | | results section. | + +--------+ + + + | MAGNESIUM, PLASMA | Urgent | 02/16/2018 | | Results for this | | | | 12:52 AM | | procedure are in the | | | | PDT | | results section. | + +--------+ + + + | CAPILLARY BLOOD | Routin | 02/15/2018 | Closed displaced | Results for this | | GLUCOSE (NO CHG), | e | 10:21 PM | fracture of second | procedure are in the | | POC | | PDT | cervical vertebra, | results section. | | | | | unspecified fracture | | | | | | morphology, initial | | | | | | encounter (HCC) | | + +--------+ + + + | TROPONIN I, PLASMA | Urgent | 02/15/2018 | | Results for this | | | | 7:22 PM | | procedure are in the | | | | PDT | | results section. | + +--------+ + + + | ANTIBODY SCREEN | Urgent | 02/15/2018 | | Results for this | | | | 6:06 PM | | procedure are in the | | | | PDT | | results section. | + +--------+ + + + | TYPE AND SCREEN | Urgent | 02/15/2018 | | Results for this | | | | 6:06 PM | | procedure are in the | | | | PDT | | results section. | + +--------+ + + + | ABO & RH TYPE | Urgent | 02/15/2018 | | Results for this | | | | 6:06 PM | | procedure are in the | | | | PDT | | results section. | + +--------+ + + + | CHEM 8 W/H&H,POC | Urgent | 02/15/2018 | Closed displaced | Results for this | | | | 4:25 PM | fracture of second | procedure are in the | | | | PDT | cervical vertebra, | results section. | | | | | unspecified fracture | | | | | | morphology, initial | | | | | | encounter (HCC) | | + +--------+ + + + | CT SPINE THOR AND | Urgent | 02/15/2018 | | Results for this | | LUMB WO CONTRAST | | 4:12 PM | | procedure are in the | | | | PDT | | results section. | + +--------+ + + + | CTA NECK W CONTRAST | Urgent | 02/15/2018 | | Results for this | | | | 4:11 PM | | procedure are in the | | | | PDT | | results section. | + +--------+ + + + | TROPONIN, POC | Urgent | 02/15/2018 | Closed displaced | Results for this | | | | 3:43 PM | fracture of second | procedure are in the | | | | PDT | cervical vertebra, | results section. | | | | | unspecified fracture | | | | | | morphology, initial | | | | | | encounter (HCC) | | + +--------+ + + + | BG-LAC,POC ISTAT | Urgent | 02/15/2018 | Closed displaced | Results for this | | | | 3:38 PM | fracture of second | procedure are in the | | | | PDT | cervical vertebra, | results section. | | | | | unspecified fracture | | | | | | morphology, initial | | | | | | encounter (HCC) | | + +--------+ + + + | RAINBOW HOLD TUBE - | Urgent | 02/15/2018 | | | | RED TOP | | 3:33 PM | | | | | | PDT | | | + +--------+ + + + | RAINBOW HOLD TUBE - | Urgent | 02/15/2018 | | | | PURPLE TOP | | 3:33 PM | | | | | | PDT | | | + +--------+ + + + | RAINBOW HOLD TUBE - | Urgent | 02/15/2018 | | | | GREEN TOP | | 3:33 PM | | | | | | PDT | | | + +--------+ + + + | RAINBOW HOLD TUBE - | Urgent | 02/15/2018 | | | | BLUE TOP | | 3:33 PM | | | | | | PDT | | | + +--------+ + + + | RAINBOW HOLD, CORE | Urgent | 02/15/2018 | | Results for this | | PANEL | | 3:33 PM | | procedure are in the | | | | PDT | | results section. | + +--------+ + + + | BLOOD BANK HOLD TUBE | Urgent | 02/15/2018 | | Results for this | | - DON | | 3:33 PM | | procedure are in the | | | | PDT | | results section. | | T PROCESS | | | | | + +--------+ + + + | CBC (HEMOGRAM) ONLY | Urgent | 02/15/2018 | | Results for this | | | | 3:33 PM | | procedure are in the | | | | PDT | | results section. | + +--------+ + + + | INR | Urgent | 02/15/2018 | | Results for this | | | | 3:33 PM | | procedure are in the | | | | PDT | | results section. | + +--------+ + + + | RENAL FUNCTION SET | Urgent | 02/15/2018 | | Results for this | | (NA,K,CL,CO2,BUN,CRE | | 3:33 PM | | procedure are in the | | AT,GLUC,CA,PHOS,ALB | | PDT | | results section. | | ) | | | | | + +--------+ + + + | CBC ONLY | Urgent | 02/15/2018 | | Results for this | | | | 3:33 PM | | procedure are in the | | | | PDT | | results section. | + +--------+ + + + | PLATELET MAPPING, | Routin | 02/15/2018 | | Results for this | | POC | e | | | procedure are in the | | | | | | results section. | + +--------+ + + + | CARDIOLOGY | | 02/15/2018 | | Results for this | | | | 12:00 AM | | procedure are in the | | | | PDT | | results section. | + +--------+ + + + documented in this encounter Results CAPILLARY BLOOD GLUCOSE (NO CHG), POC (02/22/2018 7:42 PM PDT) + +---------+ + + + | Component | Value | Ref Range | Performed | Pathologist | | | | | At | Signature | + +---------+ + + + | BLOOD | 176 (H) | 70 - 99 mg/dL | [facility] | | | GLUCOSE, | | | [facility] | | | POC | | | [facility] | | | | | | [facility] CARE | | | | | | TESTS | | + +---------+ + + + + + | Specimen | + + | | + + + + + + + | Performing | Address | City/State/Zipcode | Phone Number | | Organization | | | | + + + + + | [facility] | [address] | [place], [place] | | | [facility] | [address] | [address] | | | TESTS | | | | + + + + + X-RAY SPINE CERVICAL 2 VIEWS (02/22/2018 2:58 PM PDT) + + | Specimen | + + | | + + + + + | Narrative | Performed At | + + + | EXAM: SPINE CERVICAL 2 VIEWS HISTORY: AP/lat s/p fusion | [facility] | | COMPARISON: CT 02/15/2018 FINDINGS: There is been extension of | RADIOLOGY VOICE | | posterior spinal fusion from the existing C3-T2 paraspinal rods and | RECOGNITION 2 | | screws superiorly with rods and occipital plate. The existing and new | | | hardware is intact with no failure or loosening. Multilevel | | | laminectomy defects are observed. There are stigmata of ankylosing | | | spondylitis with fusion of the cervical spine with syndesmophyte | | | formation, and facet fusion. Ossification is seen in the cervical disc | | | spaces. Enlargement is seen of the first ribs bilaterally with | | | presumed fusion at the first and second costotransverse joints | | | bilaterally. There is no change in the displaced fracture through the | | | C2-C3 disc space with approximately 8 mm anterior displacement of the | | | C2 body. Nondisplaced bilateral C2 laminar fractures are also seen. No | | | new fracture or focal destruction is noted. The C1-C2 relationship is | | | intact. Skin conrado are seen in the posterior soft tissues of the | | | neck. IMPRESSION: Occipital-T2 posterior spinal fusion with no | | | hardware complication. Unchanged alignment of displaced C2 | | | fracture at the C2-C3 interspace and nondisplaced bilateral C2 laminar | | | fractures. Stigmata of ankylosing spondylitis. I have | | | personally reviewed the images and, if necessary, edited the report. I | | | agree with the report as now presented. Final signature: Myrtle | | | MD Isaías 02/22/2018 3:23 PM Preliminary: Myrtle Metz | | | Dictation initiated: Myrtle Metz MD 02/22/2018 | | | 3:03 PM | | + + + + + | Procedure Note | + + | Service Account, Radiant Res In Interface - 02/22/2018 3:24 PM PDT EXAM: SPINE | | CERVICAL 2 VIEWS HISTORY: AP/lat s/p fusion COMPARISON: CT 02/15/2018 FINDINGS: There is | | been extension of posterior spinal fusion from the existing C3-T2 paraspinal rods and | | screws superiorly with rods and occipital plate. The existing and new hardware is intact | | with no failure or loosening. Multilevel laminectomy defects are observed. There are | | stigmata of ankylosing spondylitis with fusion of the cervical spine with syndesmophyte | | formation, and facet fusion. Ossification is seen in the cervical disc spaces. | | Enlargement is seen of the first ribs bilaterally with presumed fusion at the first and | | second costotransverse joints bilaterally. There is no change in the displaced fracture | | through the C2-C3 disc space with approximately 8 mm anterior displacement of the C2 | | body. Nondisplaced bilateral C2 laminar fractures are also seen. No new fracture or | | focal destruction is noted. The C1-C2 relationship is intact. Skin conrado are seen in | | the posterior soft tissues of the neck. IMPRESSION: Occipital-T2 posterior spinal fusion | | with no hardware complication. Unchanged alignment of displaced C2 fracture at the | | C2-C3 interspace and nondisplaced bilateral C2 laminar fractures. Stigmata of ankylosing | | spondylitis. I have personally reviewed the images and, if necessary, edited the | | report. I agree with the report as now presented. Final signature: Myrtle Metz | | 02/22/2018 3:23 PM Preliminary: Myrtle Metz MD Dictation initiated: Myrtle Metz MD 02/22/2018 3:03 PM | | | |Stigmata of ankylosing spondylitis. | | | |I have personally reviewed the images and, if necessary, edited the report. I agree with th e report as now presented. | | | |Final signature: Myrtle Metz MD 02/22/2018 3:23 PM | |Preliminary: Myrtle Metz MD | |Dictation initiated: Myrtle Metz MD 02/22/2018 3:03 PM | + + + +---------+ + + | Performing | Address | City/State/Zipcode | Phone Number | | Organization | | | | + +---------+ + + | [facility] | | | | | VOICE RECOGNITION 2 | | | | + +---------+ + + CAPILLARY BLOOD GLUCOSE (NO CHG), POC (02/22/2018 1:03 PM PDT) + +---------+ + + + | Component | Value | Ref Range | Performed | Pathologist | | | | | At | Signature | + +---------+ + + + | BLOOD | 116 (H) | 70 - 99 mg/dL | [facility] - | | | GLUCOSE, | | | [facility] | | | POC | | | [facility] | | | | | | OF CARE | | | | | | TESTS | | + +---------+ + + + + + | Specimen | + + | | + + + + + + + | Performing | Address | City/State/Zipcode | Phone Number | | Organization | | | | + + + + + | [facility] | [address] | [place], [place] | | | [facility] | [address] | [phone] | | | TESTS | | | | + + + + + CBC (HEMOGRAM) ONLY (02/22/2018 9:20 AM PDT) + + + + + + | Component | Value | Ref Range | Performed | Pathologist | | | | | At | Signature | + + + + + + | WHITE CELL | 8.59 | 3.50 - 10.80 | [facility] | | | COUNT | | K/cu mm | LABORATORY | | | | | | SERVICES, | | | | | | CORE | | + + + + + + | RED CELL | 4.28 (L) | 4.50 - 6.00 | [facility] | | | COUNT | | M/cu mm | LABORATORY | | | | | | SERVICES, | | | | | | CORE | | + + + + + + | HEMOGLOBIN | 12.0 (L) | 13.5 - 17.5 | [facility] | | | | | g/dL | LABORATORY | | | | | | SERVICES, | | | | | | CORE | | + + + + + + | HEMATOCRIT | 35.8 (L) | 41.0 - 53.0 % | [facility] | | | | | | LABORATORY | | | | | | SERVICES, | | | | | | CORE | | + + + + + + | MCV | 83.6 | 80.0 - 100.0 fL | [facility] | | | | | | LABORATORY | | | | | | SERVICES, | | | | | | CORE | | + + + + + + | MCHC | 33.5 | 32.0 - 36.0 | [facility] | | | | | g/dL | LABORATORY | | | | | | SERVICES, | | | | | | CORE | | + + + + + + | RDW SD | 41.0 | 35.1 - 46.3 fL | [facility] | | | | | | LABORATORY | | | | | | SERVICES, | | | | | | CORE | | + + + + + + | PLATELET | 279 | 150 - 400 K/cu | [facility] | | | COUNT | | mm | LABORATORY | | | | | | SERVICES, | | | | | | CORE | | + + + + + + | MPV | 9.2 (L) | 9.7 - 12.3 fL | [facility] | | | | | | LABORATORY | | | | | | SERVICES, | | | | | | CORE | | + + + + + + | NRBC% | 0.0 | 0.0 - 0.3 % | [facility] | | | | | | LABORATORY | | | | | | SERVICES, | | | | | | CORE | | + + + + + + | NRBC# | 0.00 | 0.00 - 0.02 | [facility] | | | | | K/cu mm | LABORATORY | | | | | | SERVICES, | | | | | | CORE | | + + + + + + + + | Specimen | + + | Blood | + + + + + | Narrative | Performed At | + + + | New reference ranges for MCV, MCHC, PLT, IG% and IG# effective | [facility] | | 12/30/2017 | LABORATORY | | | [facility] | + + + + + + + + | Performing | Address | City/State/Zipcode | Phone Number | | Organization | | | | + + + + + | [facility] | [address] | [place] [address] | | | [facility] | [address] | | | + + + + + CAPILLARY BLOOD GLUCOSE (NO CHG), POC (02/22/2018 7:19 AM PDT) + +---------+ + + + | Component | Value | Ref Range | Performed | Pathologist | | | | | At | Signature | + +---------+ + + + | BLOOD | 127 (H) | 70 - 99 mg/dL | [facility] - | | | GLUCOSE, | | | [facility] | | | POC | | | [facility] | | | | | | OF CARE | | | | | | TESTS | | + +---------+ + + + + + | Specimen | + + | | + + + + + + + | Performing | Address | City/State/Zipcode | Phone Number | | Organization | | | | + + + + + | [facility] | [address] | [place], [place] | | | [facility] | [address] | [phone] | | | TESTS | | | | + + + + + CAPILLARY BLOOD GLUCOSE (NO CHG), POC (02/21/2018 11:58 PM PDT) + +---------+ + + + | Component | Value | Ref Range | Performed | Pathologist | | | | | At | Signature | + +---------+ + + + | BLOOD | 154 (H) | 70 - 99 mg/dL | [facility] - | | | GLUCOSE, | | | [facility] | | | POC | | | [facility] | | | | | | OF CARE | | | | | | TESTS | | + +---------+ + + + + + | Specimen | + + | | + + + + + + + | Performing | Address | City/State/Zipcode | Phone Number | | Organization | | | | + + + + + | [facility] | [address] | [place], [place] | | | [facility] | [address] | [phone] | | | TESTS | | | | + + + + + CAPILLARY BLOOD GLUCOSE (NO CHG), POC (02/21/2018 8:54 PM PDT) + +---------+ + + + | Component | Value | Ref Range | Performed | Pathologist | | | | | At | Signature | + +---------+ + + + | BLOOD | 195 (H) | 70 - 99 mg/dL | [facility] - | | | GLUCOSE, | | | [facility] | | | POC | | | [facility] | | | | | | OF CARE | | | | | | TESTS | | + +---------+ + + + + + | Specimen | + + | | + + + + + + + | Performing | Address | City/State/Zipcode | Phone Number | | Organization | | | | + + + + + | [facility] | [address] | [place], [place] | | | [facility] | [address] | [address] | | | TESTS | | | | + + + + + CAPILLARY BLOOD GLUCOSE (NO CHG), POC (02/21/2018 6:59 PM PDT) + +---------+ + + + | Component | Value | Ref Range | Performed | Pathologist | | | | | At | Signature | + +---------+ + + + | BLOOD | 135 (H) | 70 - 99 mg/dL | [facility] - | | | GLUCOSE, | | | [facility] | | | POC | | | [facility] | | | | | | OF CARE | | | | | | TESTS | | + +---------+ + + + + + | Specimen | + + | | + + + + + + + | Performing | Address | City/State/Zipcode | Phone Number | | Organization | | | | + + + + + | [facility] | [address] | [place], [place] | | | [facility] | [address] | [phone] | | | TESTS | | | | + + + + + CAPILLARY BLOOD GLUCOSE (NO CHG), POC (02/21/2018 1:17 PM PDT) + +---------+ + + + | Component | Value | Ref Range | Performed | Pathologist | | | | | At | Signature | + +---------+ + + + | BLOOD | 139 (H) | 70 - 99 mg/dL | [facility] - | | | GLUCOSE, | | | [facility] | | | POC | | | [facility] | | | | | | OF CARE | | | | | | TESTS | | + +---------+ + + + + + | Specimen | + + | | + + + + + + + | Performing | Address | City/State/Zipcode | Phone Number | | Organization | | | | + + + + + | [facility] | [address] | [place], [place] | | | [facility] | [address] | [address] | | | TESTS | | | | + + + + + CBC (HEMOGRAM) ONLY (02/21/2018 10:18 AM PDT) + + + + + + | Component | Value | Ref Range | Performed | Pathologist | | | | | At | Signature | + + + + + + | WHITE CELL | 8.51 | 3.50 - 10.80 | [facility] | | | COUNT | | K/cu mm | LABORATORY | | | | | | SERVICES, | | | | | | CORE | | + + + + + + | RED CELL | 4.30 (L) | 4.50 - 6.00 | [facility] | | | COUNT | | M/cu mm | LABORATORY | | | | | | SERVICES, | | | | | | CORE | | + + + + + + | HEMOGLOBIN | 12.3 (L) | 13.5 - 17.5 | [facility] | | | | | g/dL | LABORATORY | | | | | | SERVICES, | | | | | | CORE | | + + + + + + | HEMATOCRIT | 36.3 (L) | 41.0 - 53.0 % | [facility] | | | | | | LABORATORY | | | | | | SERVICES, | | | | | | CORE | | + + + + + + | MCV | 84.4 | 80.0 - 100.0 fL | [facility] | | | | | | LABORATORY | | | | | | SERVICES, | | | | | | CORE | | + + + + + + | MCHC | 33.9 | 32.0 - 36.0 | [facility] | | | | | g/dL | LABORATORY | | | | | | SERVICES, | | | | | | CORE | | + + + + + + | RDW SD | 42.3 | 35.1 - 46.3 fL | [facility] | | | | | | LABORATORY | | | | | | SERVICES, | | | | | | CORE | | + + + + + + | PLATELET | 265 | 150 - 400 K/cu | [facility] | | | COUNT | | mm | LABORATORY | | | | | | SERVICES, | | | | | | CORE | | + + + + + + | MPV | 9.1 (L) | 9.7 - 12.3 fL | [facility] | | | | | | LABORATORY | | | | | | SERVICES, | | | | | | CORE | | + + + + + + | NRBC% | 0.0 | 0.0 - 0.3 % | [facility] | | | | | | LABORATORY | | | | | | SERVICES, | | | | | | CORE | | + + + + + + | NRBC# | 0.00 | 0.00 - 0.02 | [facility] | | | | | K/cu mm | LABORATORY | | | | | | SERVICES, | | | | | | CORE | | + + + + + + + + | Specimen | + + | Blood | + + + + + | Narrative | Performed At | + + + | New reference ranges for MCV, MCHC, PLT, IG% and IG# effective | [facility] | | 12/30/2017 | LABORATORY | | | [facility] | + + + + + + + + | Performing | Address | City/State/Zipcode | Phone Number | | Organization | | | | + + + + + | [facility] | [address] | [place] [address] | | | [facility] [place] | [address] | | | + + + + + CAPILLARY BLOOD GLUCOSE (NO CHG), POC (02/21/2018 7:48 AM PDT) + +---------+ + + + | Component | Value | Ref Range | Performed | Pathologist | | | | | At | Signature | + +---------+ + + + | BLOOD | 121 (H) | 70 - 99 mg/dL | [facility] | | | GLUCOSE, | | | [facility] | | | POC | | | [place] [place] | | | | | | OF CARE | | | | | | TESTS | | + +---------+ + + + + + | Specimen | + + | | + + + + + + + | Performing | Address | City/State/Zipcode | Phone Number | | Organization | | | | + + + + + | [facility] | [address] | [place], [place] | | | [facility] | [facility] | [address] | | | TESTS | | | | + + + + + CAPILLARY BLOOD GLUCOSE (NO CHG), POC (02/20/2018 10:54 PM PDT) + +---------+ + + + | Component | Value | Ref Range | Performed | Pathologist | | | | | At | Signature | + +---------+ + + + | BLOOD | 159 (H) | 70 - 99 mg/dL | [facility] - | | | GLUCOSE, | | | [facility] | | | POC | | | [facility] | | | | | | OF CARE | | | | | | TESTS | | + +---------+ + + + + + | Specimen | + + | | + + + + + + + | Performing | Address | City/State/Zipcode | Phone Number | | Organization | | | | + + + + + | [facility] | [address] | [place], [place] | | | [facility] | [address] | [address] | | | TESTS | | | | + + + + + CAPILLARY BLOOD GLUCOSE (NO CHG), POC (02/20/2018 7:16 PM PDT) + +---------+ + + + | Component | Value | Ref Range | Performed | Pathologist | | | | | At | Signature | + +---------+ + + + | BLOOD | 147 (H) | 70 - 99 mg/dL | [facility] - | | | GLUCOSE, | | | [facility] | | | POC | | | [facility] | | | | | | OF CARE | | | | | | TESTS | | + +---------+ + + + + + | Specimen | + + | | + + + + + + + | Performing | Address | City/State/Zipcode | Phone Number | | Organization | | | | + + + + + | [facility] | [address] | [place], [place] | | | [facility] | [address] | [phone] | | | TESTS | | | | + + + + + CBC (HEMOGRAM) ONLY (02/20/2018 1:51 PM PDT) + + + + + + | Component | Value | Ref Range | Performed | Pathologist | | | | | At | Signature | + + + + + + | WHITE CELL | 9.45 | 3.50 - 10.80 | [facility] | | | COUNT | | K/cu mm | LABORATORY | | | | | | SERVICES, | | | | | | CORE | | + + + + + + | RED CELL | 4.44 (L) | 4.50 - 6.00 | [facility] | | | COUNT | | M/cu mm | LABORATORY | | | | | | SERVICES, | | | | | | CORE | | + + + + + + | HEMOGLOBIN | 12.8 (L) | 13.5 - 17.5 | [facility] | | | | | g/dL | LABORATORY | | | | | | SERVICES, | | | | | | CORE | | + + + + + + | HEMATOCRIT | 36.9 (L) | 41.0 - 53.0 % | [facility] | | | | | | LABORATORY | | | | | | SERVICES, | | | | | | CORE | | + + + + + + | MCV | 83.1 | 80.0 - 100.0 fL | [facility] | | | | | | LABORATORY | | | | | | SERVICES, | | | | | | CORE | | + + + + + + | MCHC | 34.7 | 32.0 - 36.0 | [facility] | | | | | g/dL | LABORATORY | | | | | | SERVICES, | | | | | | CORE | | + + + + + + | RDW SD | 40.6 | 35.1 - 46.3 fL | [facility] | | | | | | LABORATORY | | | | | | SERVICES, | | | | | | CORE | | + + + + + + | PLATELET | 246 | 150 - 400 K/cu | [facility] | | | COUNT | | mm | LABORATORY | | | | | | SERVICES, | | | | | | CORE | | + + + + + + | MPV | 9.1 (L) | 9.7 - 12.3 fL | [facility] | | | | | | LABORATORY | | | | | | SERVICES, | | | | | | CORE | | + + + + + + | NRBC% | 0.0 | 0.0 - 0.3 % | [facility] | | | | | | LABORATORY | | | | | | SERVICES, | | | | | | CORE | | + + + + + + | NRBC# | 0.00 | 0.00 - 0.02 | [facility] | | | | | K/cu mm | LABORATORY | | | | | | SERVICES, | | | | | | CORE | | + + + + + + + + | Specimen | + + | Blood | + + + + + | Narrative | Performed At | + + + | New reference ranges for MCV, MCHC, PLT, IG% and IG# effective | [facility] | | 12/30/2017 | LABORATORY | | | SERVICES, CORE | + + + + + + + + | Performing | Address | City/State/Zipcode | Phone Number | | Organization | | | | + + + + + | [facility] | [address] | [place] [address] | | | SERVICES, [facility] | [address] | | | + + + + + US SOFT TISSUE HEAD & NECK (02/20/2018 1:09 PM PDT) + + | Specimen | + + | | + + + + + | Narrative | Performed At | + + + | EXAM: US THYROID. HISTORY: Thyroid ultrasound for mass seen on | [facility] | | CT scan. COMPARISON: CTA neck 02/15/2018 TECHNIQUE: Ultrasound | RADIOLOGY VOICE | | of the thyroid. FINDINGS: Size: Right lobe 1.6 x 1.7 x 3.8 | RECOGNITION 2 | | cm. Left lobe 4.4 x 3.7 x 5.5 cm. Isthmus 4 mm in thickness. | | | Left thyroid: Nodule 1: 4.4 x 3.7 x 4.2 cm hyperechoic | | | well-circumscribed nodule corresponding to the lesion seen on prior | | | CTA of neck from 02/15/2018. The nodule demonstrates increased | | | vascularity with no definite calcifications. No right thyroid | | | nodules. Limited evaluation for cervical adenopathy. | | | IMPRESSION: Large hyperechoic left thyroid nodule meeting criteria | | | for FNA . I have personally reviewed the images and, if | | | necessary, edited the report. I agree with the report as now | | | presented. Final signature: Paola Dela Cruz MD 02/20/2018 4:22 | | | PM Preliminary: Jorge Mckeon MD Dictation | | | initiated: Jorge Mckeon MD 02/20/2018 2:17 PM | | + + + + + | Procedure Note | + + | Service Account, Radiant Res In Interface - 02/20/2018 4:23 PM PDT EXAM: US THYROID. | | HISTORY: Thyroid ultrasound for mass seen on CT scan. COMPARISON: CTA neck 02/15/2018 | | TECHNIQUE: Ultrasound of the thyroid. FINDINGS:Size:Right lobe 1.6 x 1.7 x 3.8 cm. Left | | lobe 4.4 x 3.7 x 5.5 cm. Isthmus 4 mm in thickness. Left thyroid:Nodule 1: 4.4 x 3.7 x | | 4.2 cm hyperechoic well-circumscribed nodule corresponding to the lesion seen on prior | | CTA of neck from 02/15/2018. The nodule demonstrates increased vascularity with no | | definite calcifications. No right thyroid nodules. Limited evaluation for cervical | | adenopathy. IMPRESSION: Large hyperechoic left thyroid nodule meeting criteria for FNA | | . I have personally reviewed the images and, if necessary, edited the report. I agree | | with the report as now presented. Final signature: Paola Dela Cruz MD 02/20/2018 4:22 PM | | Preliminary: Jorge Mckeon MD Dictation initiated: Jorge Mckeon MD | | 02/20/2018 2:17 PM | |Isthmus 4 mm in thickness. | | | |Left thyroid: | |Nodule 1: 4.4 x 3.7 x 4.2 cm hyperechoic well-circumscribed nodule corresponding to the les ion seen on prior CTA of neck from 02/15/2018. The nodule demonstrates increased vascularity with no definite calcifications. | | | |No right thyroid nodules. | | | |Limited evaluation for cervical adenopathy. | | | | | |IMPRESSION: | | | |Large hyperechoic left thyroid nodule meeting criteria for FNA . | | | | | |I have personally reviewed the images and, if necessary, edited the report. I agree with e report as now presented. | | | |Final signature: Paola Dela Cruz MD 02/20/2018 4:22 PM | |Preliminary: Jorge Mckeon MD | |Dictation initiated: Jorge Mckeon MD 02/20/2018 2:17 PM | + + + +---------+ + + | Performing | Address | City/State/Zipcode | Phone Number | | Organization | | | | + +---------+ + + | [facility] | | | | | VOICE RECOGNITION 2 | | | | + +---------+ + + CAPILLARY BLOOD GLUCOSE (NO CHG), POC (02/20/2018 10:04 AM PDT) + +---------+ + + + | Component | Value | Ref Range | Performed | Pathologist | | | | | At | Signature | + +---------+ + + + | BLOOD | 148 (H) | 70 - 99 mg/dL | [facility] - | | | GLUCOSE, | | | [facility] | | | POC | | | [facility] | | | | | | OF CARE | | | | | | TESTS | | + +---------+ + + + + + | Specimen | + + | | + + + + + + + | Performing | Address | City/State/Zipcode | Phone Number | | Organization | | | | + + + + + | [facility] | [address] | [place], [place] | | | [facility] [place] | [facility] | [address] | | | TESTS | | | | + + + + + CAPILLARY BLOOD GLUCOSE (NO CHG), POC (02/19/2018 11:35 PM PDT) + +---------+ + + + | Component | Value | Ref Range | Performed | Pathologist | | | | | At | Signature | + +---------+ + + + | BLOOD | 125 (H) | 70 - 99 mg/dL | [facility] - | | | GLUCOSE, | | | [facility] | | | POC | | | [place] [place] | | | | | | OF CARE | | | | | | TESTS | | + +---------+ + + + + + | Specimen | + + | | + + + + + + + | Performing | Address | City/State/Zipcode | Phone Number | | Organization | | | | + + + + + | [facility] | [address] | [place], [place] | | | [facility] | [address] | [address] | | | TESTS | | | | + + + + + CAPILLARY BLOOD GLUCOSE (NO CHG), POC (02/19/2018 8:30 PM PDT) + +---------+ + + + | Component | Value | Ref Range | Performed | Pathologist | | | | | At | Signature | + +---------+ + + + | BLOOD | 143 (H) | 70 - 99 mg/dL | [facility] - | | | GLUCOSE, | | | [facility] | | | POC | | | [facility] | | | | | | OF CARE | | | | | | TESTS | | + +---------+ + + + + + | Specimen | + + | | + + + + + + + | Performing | Address | City/State/Zipcode | Phone Number | | Organization | | | | + + + + + | [facility] | [address] | [place], [place] | | | [facility] | [address] | [address] | | | TESTS | | | | + + + + + CAPILLARY BLOOD GLUCOSE (NO CHG), POC (02/19/2018 12:29 PM PDT) + +---------+ + + + | Component | Value | Ref Range | Performed | Pathologist | | | | | At | Signature | + +---------+ + + + | BLOOD | 195 (H) | 70 - 99 mg/dL | [facility] - | | | GLUCOSE, | | | [facility] | | | POC | | | [facility] | | | | | | OF CARE | | | | | | TESTS | | + +---------+ + + + + + | Specimen | + + | | + + + + + + + | Performing | Address | City/State/Zipcode | Phone Number | | Organization | | | | + + + + + | [facility] | [address] | [place], [place] | | | [facility] | [facility] | [address] | | | TESTS | | | | + + + + + CBC (HEMOGRAM) ONLY (02/19/2018 9:02 AM PDT) + + + + + + | Component | Value | Ref Range | Performed | Pathologist | | | | | At | Signature | + + + + + + | WHITE CELL | 10.39 | 3.50 - 10.80 | [facility] | | | COUNT | | K/cu mm | LABORATORY | | | | | | SERVICES, | | | | | | CORE | | + + + + + + | RED CELL | 4.34 (L) | 4.50 - 6.00 | [facility] | | | COUNT | | M/cu mm | LABORATORY | | | | | | SERVICES, | | | | | | CORE | | + + + + + + | HEMOGLOBIN | 12.2 (L) | 13.5 - 17.5 | [facility] | | | | | g/dL | LABORATORY | | | | | | SERVICES, | | | | | | CORE | | + + + + + + | HEMATOCRIT | 36.7 (L) | 41.0 - 53.0 % | [facility] | | | | | | LABORATORY | | | | | | SERVICES, | | | | | | CORE | | + + + + + + | MCV | 84.6 | 80.0 - 100.0 fL | [facility] | | | | | | LABORATORY | | | | | | SERVICES, | | | | | | CORE | | + + + + + + | MCHC | 33.2 | 32.0 - 36.0 | [facility] | | | | | g/dL | LABORATORY | | | | | | SERVICES, | | | | | | CORE | | + + + + + + | RDW SD | 42.7 | 35.1 - 46.3 fL | [facility] | | | | | | LABORATORY | | | | | | SERVICES, | | | | | | CORE | | + + + + + + | PLATELET | 202 | 150 - 400 K/cu | [facility] | | | COUNT | | mm | LABORATORY | | | | | | SERVICES, | | | | | | CORE | | + + + + + + | MPV | 9.6 (L) | 9.7 - 12.3 fL | [facility] | | | | | | LABORATORY | | | | | | SERVICES, | | | | | | CORE | | + + + + + + | NRBC% | 0.0 | 0.0 - 0.3 % | [facility] | | | | | | LABORATORY | | | | | | SERVICES, | | | | | | CORE | | + + + + + + | NRBC# | 0.00 | 0.00 - 0.02 | [facility] | | | | | K/cu mm | LABORATORY | | | | | | SERVICES, | | | | | | CORE | | + + + + + + + + | Specimen | + + | Blood | + + + + + | Narrative | Performed At | + + + | New reference ranges for MCV, MCHC, PLT, IG% and IG# effective | [facility] | | 12/30/2017 | LABORATORY | | | [facility] | + + + + + + + + | Performing | Address | City/State/Zipcode | Phone Number | | Organization | | | | + + + + + | [facility] | [address] | [place] [address] | | | [facility] | [address] | | | + + + + + CAPILLARY BLOOD GLUCOSE (NO CHG), POC (02/19/2018 8:55 AM PDT) + +---------+ + + + | Component | Value | Ref Range | Performed | Pathologist | | | | | At | Signature | + +---------+ + + + | BLOOD | 191 (H) | 70 - 99 mg/dL | [facility] - | | | GLUCOSE, | | | [facility] | | | POC | | | [facility] | | | | | | OF CARE | | | | | | TESTS | | + +---------+ + + + + + | Specimen | + + | | + + + + + + + | Performing | Address | City/State/Zipcode | Phone Number | | Organization | | | | + + + + + | [facility] | [address] | [place], [place] | | | [facility] | [address] | [address] | | | TESTS | | | | + + + + + CAPILLARY BLOOD GLUCOSE (NO CHG), POC (02/18/2018 10:16 PM PDT) + +---------+ + + + | Component | Value | Ref Range | Performed | Pathologist | | | | | At | Signature | + +---------+ + + + | BLOOD | 129 (H) | 70 - 99 mg/dL | [facility] - | | | GLUCOSE, | | | [facility] | | | POC | | | [facility] | | | | | | OF CARE | | | | | | TESTS | | + +---------+ + + + + + | Specimen | + + | | + + + + + + + | Performing | Address | City/State/Zipcode | Phone Number | | Organization | | | | + + + + + | [facility] | [address] | [place], [place] | | | [facility] | [address] | [address] | | | TESTS | | | | + + + + + CAPILLARY BLOOD GLUCOSE (NO CHG), POC (02/18/2018 5:29 PM PDT) + +---------+ + + + | Component | Value | Ref Range | Performed | Pathologist | | | | | At | Signature | + +---------+ + + + | BLOOD | 187 (H) | 70 - 99 mg/dL | [facility] - | | | GLUCOSE, | | | [facility] | | | POC | | | [facility] | | | | | | OF CARE | | | | | | TESTS | | + +---------+ + + + + + | Specimen | + + | | + + + + + + + | Performing | Address | City/State/Zipcode | Phone Number | | Organization | | | | + + + + + | [facility] | [address] | [place], [place] | | | [facility] | [address] | [address] | | | TESTS | | | | + + + + + PROCEDURE NOTE (02/18/2018 3:25 PM PDT)VASC LAB VENOUS DUPLEX LOWER EXTREMITY BILAT COMP ( 02/18/2018 3:17 PM PDT) + + | Specimen | + + | | + + + + + | Narrative | Performed At | + + + | Bilateral: The duplex scanner was used to examine the deep and | [facility] | | superficial veins of the right and left lower extremities. RIGHT: | RADIOLOGY VASC | | There is nonocclusive thrombus in the posterior tibial vein in the | [place] | | proximal calf. All other veins are patent with normal flow and | | | responses to augmentation and compression maneuvers and no other | | | thrombus is noted. LEFT: The veins are patent with normal flow and | | | responses to augmentation and compression maneuvers and no thrombus is | | | noted. Conclusions: An abnormal venous examination. RIGHT: | | | There is deep vein thrombus in the posterior tibial vein in the | | | proximal calf. No other venous thrombosis was detected. The calf veins | | | were poorly visualized due to swelling. LEFT: No venous thrombosis | | | was detected. The calf veins were poorly visualized due to swelling. | | | I have personally reviewed the images and, if necessary, | | | edited the report. I agree with the report as now presented. | | + + + + + | Procedure Note | + + | Service Account, [employer] In Interface - 02/18/2018 3:50 PM PDT Bilateral: The | | duplex scanner was used to examine the deep and superficial veins of the right and left | | lower extremities.RIGHT: There is nonocclusive thrombus in the posterior tibial vein in | | the proximal calf. All other veins are patent with normal flow and responses to | | augmentation and compression maneuvers and no other thrombus is noted.LEFT: The veins | | are patent with normal flow and responses to augmentation and compression maneuvers and | | no thrombus is noted.Conclusions: An abnormal venous examination.RIGHT: There is deep | | vein thrombus in the posterior tibial vein in the proximal calf. No other venous | | thrombosis was detected. The calf veins were poorly visualized due to swelling.LEFT: No | | venous thrombosis was detected. The calf veins were poorly visualized due to swelling.I | | have personally reviewed the images and, if necessary, edited the report. I agree with | | the report as now presented. | |I have personally reviewed the images and, if necessary, edited the report. I agree with t he report as now presented. | + + + +---------+ + + | Performing | Address | City/State/Zipcode | Phone Number | | Organization | | | | + +---------+ + + | [facility] | | | | | VASC US | | | | + +---------+ + + OPERATION RECORD (02/18/2018 1:17 PM PDT) + + | Procedure Note | + + | Pablito Barroso MD - 02/18/2018 1:17 PM PDT Date of Service: 02/18/2018 Attending | | Surgeon: Pablito Barroso MD Lifter Driver(s): All López MD, | | PhD Preoperative Diagnoses: 1. Ankylosing spondylitis. 2. C2 | | fracture. 3. Cervical stenosis.Postoperative Diagnoses: 1. Ankylosing spondylitis. 2. | | C2 fracture. 3. Cervical stenosis.Procedures Performed: 1. C1 laminoplasty. 2. | | Placement of occipital plates, DePuy Synthes Synapse.3. Bilateral outrigger rods | | connected to existing hardware.4. Fluoroscopy interpretation. 5. Neuromonitoring of | | MEP/SSEP.Estimated Blood Loss: 500.Fluids: 3 L.Specimens: None.Complications: | | None.Drains: Subfascial Hemovac and George.Disposition: PACU, Trauma ICU.Findings: | | Excellent placement of hardware, C1 released, no change in neuromonitoring signals. | | Conrado to skin, nylon to drain.Indication For Procedure: Mr. Cisneros is a 67-year-old | | gentleman with ankylosing spondylitis and history of fusion. He has a history of prior | | C3-T2 posterior instrumented fusion in 2006 after a C7 fracture. He presented to [facility] | | via Trauma having fallen in the shower. He was noted on imaging to have a fracture | | through C2 with translation of the fracture segment causing cervical stenosis. He also | | has a history of antiphospholipid syndrome and DVT and is on Xarelto for this, as well | | as diabetes. He was indicated for cervical decompression and extension of fusion to the | | occiput. A full PARQ discussion was had with him. He instructed the Neurosurgical | | team to proceed. No guarantees or warranties offered.Procedure In Detail: The patient | | correctly identified in the holding area by name, medical record number, date of . | | The patient was brought to operating room. He underwent induction of general | | anesthesia and endotracheal intubation by the Anesthesiology team. Eyes were taped to | | prevent corneal abrasion. 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 The cervical collar was kept in place throughout positioning. The patient was | | then moved onto a table with a flat base. The Wilfrido frame was then placed | | over the top of the patient and the patient adequately secured and very soft paddings | | were used to ensure that the cervicothoracic kyphosis was maintained, which includes | | adjusting the face mask, as well as bolstering the chest pad to accommodate the | | cervicothoracic kyphosis without causing additional extension. Once the patient was | | safely secured a 180-degree rotation was performed to place the patient in the prone | | position and the flat top was removed, leaving the patient prone on a Wilfrido frame. | | Pre-positioning SSEP baselines were obtained and these were unchanged after the | | repositioning. All pressure points were carefully padded, a hair clip was performed in | | the posterior region and the prior midline cervical incision was identified. The | | planned incision incorporated the prior incision and it was extended up to the inion on | | the back of the skull. The area was then prepped and draped in the usual sterile | | fashion and team pause performed prior to procedure. Marcaine and epinephrine were | | infused under the skin. The skin was opened sharply with #10 blade and monopolar Bovie | | cautery was used in the midline through subcutaneous tissues until the C2 spinous | | process and lamina was identified, as well as the occipital bone in the midline. The | | soft tissues were carefully dissected to allow identification of the hardware at C3 and | | C4, exposing the screws and the rods bilaterally, and we noted that the C1 lamina was | | anteriorly displaced and dissection was performed down to this to allow full exposure of | | the bony anatomy and hardware. Attention was then turned to the C1 laminectomy, a | | centimeter from midline on the left-hand side, an Anspach cutting bur drill was used to | | perform a C1 laminectomy. On the right-hand side the same procedure was performed. Of | | note, upon release of the C1 lamina there was significant epidural venous bleeding. | | However this was controlled with FloSeal, Gelfoam and compression. The patties used to | | control this were removed, leaving the Gelfoam in place. Of note, the C1 lamina was | | left in place as a C1 laminoplasty; however this was noted to be completely released | | from the remainder of the C1 ring. Attention was then turned to the occipital plate. A | | DePuy Synthes Synapse plate was sized and placed on the occipital bone. At the | | superior hole a drill hole was placed initially to 8 mm using the hand drill. The | | ball-tipped feeler was used to palpate the inner cortical table. This was extended to | | 10/12 and then 14 mm to ensure that the inner cortex was also penetrated. This hole was | | then tapped to 14 mm and a 14 mm screw was placed at the top hole. The identical | | process was repeated at the middle and bottom midline positions on the plate with 12 mm | | and 10 mm screws. Pre-bent rods were then sized and cut and then placed within the | | wound, secured to the occipital plate. These were then positioned laterally to the | | existing rods and affixed with 2 crosslinks placed below the C3 and the C4 screws | | bilaterally. These were then final tightened using the platform supervisor instrumentation. | | The area was thoroughly irrigated and hemostasis was confirmed. A Hemovac drain was | | tunneled in the subfascial space and secured to the skin with a 3-0 nylon suture. The | | soft tissues were then closed in layers using interrupted 0, 2-0, and 3-0 Vicryl | | sutures. Prior to completion of closure AP and lateral fluoroscopy shots were used to | | confirm the position of the hardware. The skin was closed with conrado. The incision | | washed and dried and bacitracin and Telfa dressing was applied. There was no change in | | neuromonitoring signals throughout the case.All López MD, PhDI, Pablito Barroso MD | | was scrubbed and actively participated performing the critical portions of the | | operation.PAVAN Mccarthy/THANGLDD: 02/18/2018 12:36:03DT: 02/18/2018 13:17:58Job #: | | [id number] | |KG/MODL | | | | | | /[id number] | + + CAPILLARY BLOOD GLUCOSE (NO CHG), POC (02/18/2018 12:48 PM PDT) + +---------+ + + + | Component | Value | Ref Range | Performed | Pathologist | | | | | At | Signature | + +---------+ + + + | BLOOD | 153 (H) | 70 - 99 mg/dL | [facility] - | | | GLUCOSE, | | | [facility] | | | POC | | | [facility] | | | | | | OF CARE | | | | | | TESTS | | + +---------+ + + + + + | Specimen | + + | | + + + + + + + | Performing | Address | City/State/Zipcode | Phone Number | | Organization | | | | + + + + + | [facility] | [address] | [place], [place] | | | [facility] | [address] | [address] | | | TESTS | | | | + + + + + PROCEDURE NOTE (02/18/2018 12:21 PM PDT) + + + | Narrative | Performed At | + + + | All López MD,PhD 02/18/2018 5:58 PM INPATIENT BRIEF | | | OPERATIVE NOTE Procedure Date: 02/18/2018 Author: ALL | | | MD DORITA,PhD Attending Physician: Dharmesh Assistants: Dorita | | | Prior to the beginning of the procedure, the team paused to verify | | | the patient | | | | | | s identity, the procedure to be performed (in accordance with the | | | consent,) and the correct side/site. The patient was positioned | | | appropriately. All relevant images and results were properly labeled | | | and displayed. We addressed antibiotic prophylaxis and fluids for | | | irrigation as applicable to this patient. Any safety precautions | | | were addressed. Preoperative Diagnosis: 1. Ankylosing | | | spondylitis 2. C2 fracture 3. Cervical stenosis Postoperative | | | Diagnosis: same Procedure Performed: 1. C1 laminoplasty 2. | | | Placement of occipital plate, Depuy Synthes Synapse 3. Bilateral | | | outrigger rods, connected to existing hardware 4. Fluoroscopy with | | | interpretation 5. Neuromonitoring Anesthesia: GA Estimated | | | Blood Loss: 500 Fluids: 2800 Specimens: none Implants: | | | DePuy Synthes synpase Complications: none Drains: Subfascial | | | [facility] george Disposition: PACU TICU Findings: excellent | | | placement of hardware, C1 released, no change in signals, staple to | | | skin, nylon to drain Plan: ok to be without cervical collar, | | | neurological checks, ancef, maintain drain Post-operative | | | anticoagulation recommendations: -Use | | | pneumatic compression stockings until ambulatory | | | -3d after surgery: start LMWH 40 mg SQ if | | | there is surgical hemostasis -6d after | | | surgery: increase to LMWH 40 mg SQ BID -9d | | | after surgery: increase to LMWH 1 mg/kg SQ BID, and START warfarin | | | -Stop LMWH when INR is > 2 | | + + + X-RAY SPINE CERVICAL 2 VIEWS (02/18/2018 11:51 AM PDT) + + | Specimen | + + | | + + + + + | Narrative | Performed At | + + + | - At the time of the study, no professional interpretation was | | | requested. - | | + + + X-RAY FLUOROSCOPY IN OR > 1 HOUR (02/18/2018 11:50 AM PDT) + + | Specimen | + + | | + + + + + | Narrative | Performed At | + + + | - At the time of the study, no professional interpretation was | | | requested. - | | + + + ABG-FULL BRIDGER POC (02/18/2018 10:41 AM PDT) + + + + + + | Component | Value | Ref Range | Performed | Pathologist | | | | | At | Signature | + + + + + + | PH | 7.40 | 7.37 - 7.44 | [facility] | | | ARTERIAL, | | | [facility] | | | POC | | | [facility] | | | | | | OF CARE | | | | | | TESTS | | + + + + + + | PO2 | 81 | 72 - 104 mmHg | [facility] | | | [facility], | | | [facility] | | | POC | | | [facility] | | | | | | OF CARE | | | | | | TESTS | | + + + + + + | PCO2 | 41 | 32 - 43 mmHg | [facility] | | | ARTERIAL, | | | [facility] | | | POC | | | [facility] | | | | | | OF CARE | | | | | | TESTS | | + + + + + + | TOTAL | 12.5 (L) | 13.5 - 17.5 | [facility] - | | | HEMOGLOBIN, | | g/dL | [facility] | | | POC | | | [facility] | | | | | | OF CARE | | | | | | TESTS | | + + + + + + | O2 SAT | 96.3 | 92.0 - 98.0 % | [facility] - | | | ARTERIAL, | | | [facility] | | | POC | | | [facility] | | | | | | OF CARE | | | | | | TESTS | | + + + + + + | OXYHEMOGLOB | 93.8 (L) | 94.0 - 100 % | [facility] - | | | IN, POC | | | [facility] | | | | | | [facility], POINT | | | | | | OF CARE | | | | | | TESTS | | + + + + + + | HEMATOCRIT, | 38.2 (L) | 41.0 - 53.0 % | [facility] - | | | POC | | | [facility] | | | | | | [facility] | | | | | | OF CARE | | | | | | TESTS | | + + + + + + | POTASSIUM, | 4.4 | 3.4 - 5.0 | [facility] - | | | POC | | mmol/L | [facility] | | | | | | [facility]INT | | | | | | OF CARE | | | | | | TESTS | | + + + + + + | SODIUM, POC | 136 | 134 - 143 | [facility] - | | | | | mmol/L | [facility] | | | | | | [facility] | | | | | | OF CARE | | | | | | TESTS | | + + + + + + | MATT | 1.13 (L) | 1.14 - 1.32 | [facility] - | | | IONIZED CA, | | mmol/L | [facility] | | | POC | | | [facility] | | | | | | OF CARE | | | | | | TESTS | | + + + + + + | CHLORIDE, | 103 | 97 - 108 mmol/L | [facility] - | | | POC | | | [facility] | | | | | | [facility] | | | | | | OF CARE | | | | | | TESTS | | + + + + + + | GLUCOSE, | 199 (H) | 70 - 99 mg/dL | [facility] - | | | POC | | | [facility] | | | | | | [facility] | | | | | | OF CARE | | | | | | TESTS | | + + + + + + | HCO3 | 25.4 | 21 - 28 mmol/L | [facility] | | | ARTERIAL, | | | [facility] | | | POC | | | [facility] | | | | | | OF CARE | | | | | | TESTS | | + + + + + + | BASE EXCESS | 0.6 | | [facility] - | | | ARTERIAL, | | | [facility] | | | POC | | | [facility] | | | | | | OF CARE | | | | | | TESTS | | + + + + + + | LACTATE | 1.4 | 0.5 - 1.6 | [facility] - | | | ARTERIAL, | | mmol/L | [facility] | | | POC | | | [facility] | | | | | | OF CARE | | | | | | TESTS | | + + + + + + | METHEMOGLOB | 0.8 | 0.0 - 1.9 % | [facility] - | | | IN, POC | | | [facility] | | | | | | [facility] | | | | | | OF CARE | | | | | | TESTS | | + + + + + + | PAT TEMP | 37.0 | | [facility] - | | | ART, POC | | | [facility] | | | | | | [facility] | | | | | | OF CARE | | | | | | TESTS | | + + + + + + + + | Specimen | + + | Blood | + + + + + + + | Performing | Address | City/State/Zipcode | Phone Number | | Organization | | | | + + + + + | [facility] | [address] | [place], [place] | | | [facility] | [address] | [address] | | | TESTS | | | | + + + + + CAPILLARY BLOOD GLUCOSE (NO CHG), POC (02/18/2018 10:16 AM PDT) + +---------+ + + + | Component | Value | Ref Range | Performed | Pathologist | | | | | At | Signature | + +---------+ + + + | BLOOD | 178 (H) | 70 - 99 mg/dL | [facility] - | | | GLUCOSE, | | | [facility] | | | POC | | | [facility] | | | | | | OF CARE | | | | | | TESTS | | + +---------+ + + + + + | Specimen | + + | | + + + + + + + | Performing | Address | City/State/Zipcode | Phone Number | | Organization | | | | + + + + + | [facility] | [address] | [place], [place] | | | [facility] | [address] | [address] | | | TESTS | | | | + + + + + ABG-FULL ABL, POC (02/18/2018 9:12 AM PDT) + + + + + + | Component | Value | Ref Range | Performed | Pathologist | | | | | At | Signature | + + + + + + | PH | 7.36 (L) | 7.37 - 7.44 | [facility] | | | ARTERIAL, | | | [facility] | | | POC | | | [facility] | | | | | | OF CARE | | | | | | TESTS | | + + + + + + | PO2 | 78 | 72 - 104 mmHg | [facility] - | | | ARTERIAL, | | | [facility] | | | POC | | | [facility] | | | | | | OF CARE | | | | | | TESTS | | + + + + + + | PCO2 | 46 (H) | 32 - 43 mmHg | [facility] - | | | ARTERIAL, | | | [facility] | | | POC | | | [facility] POINT | | | | | | OF CARE | | | | | | TESTS | | + + + + + + | TOTAL | 12.4 (L) | 13.5 - 17.5 | [facility] - | | | HEMOGLOBIN, | | g/dL | [facility] | | | POC | | | [facility] | | | | | | OF CARE | | | | | | TESTS | | + + + + + + | O2 SAT | 95.3 | 92.0 - 98.0 % | [facility] - | | | ARTERIAL, | | | [facility] | | | POC | | | [facility] POINT | | | | | | OF CARE | | | | | | TESTS | | + + + + + + | OXYHEMOGLOB | 92.9 (L) | 94.0 - 100 % | [facility] - | | | IN, POC | | | [facility] | | | | | | [facility] | | | | | | OF CARE | | | | | | TESTS | | + + + + + + | HEMATOCRIT, | 38.0 (L) | 41.0 - 53.0 % | [facility] - | | | POC | | | [facility] | | | | | | [facility] | | | | | | OF CARE | | | | | | TESTS | | + + + + + + | POTASSIUM, | 4.4 | 3.4 - 5.0 | [facility] - | | | POC | | mmol/L | [facility] | | | | | | [facility] | | | | | | OF CARE | | | | | | TESTS | | + + + + + + | SODIUM, POC | 135 | 134 - 143 | [facility] - | | | | | mmol/L | [facility] | | | | | | [facility] | | | | | | OF CARE | | | | | | TESTS | | + + + + + + | MATT | 1.16 | 1.14 - 1.32 | [facility] - | | | IONIZED CA, | | mmol/L | [facility] | | | POC | | | [facility] | | | | | | OF CARE | | | | | | TESTS | | + + + + + + | CHLORIDE, | 103 | 97 - 108 mmol/L | [facility] - | | | POC | | | [facility] | | | | | | [facility] | | | | | | OF CARE | | | | | | TESTS | | + + + + + + | GLUCOSE, | 215 (H) | 70 - 99 mg/dL | [facility] - | | | POC | | | [facility] | | | | | | [facility] | | | | | | OF CARE | | | | | | TESTS | | + + + + + + | HCO3 | 26.0 | 21 - 28 mmol/L | [facility] - | | | ARTERIAL, | | | [facility] | | | POC | | | [facility] | | | | | | OF CARE | | | | | | TESTS | | + + + + + + | BASE EXCESS | 0.5 | | [facility] - | | | ARTERIAL, | | | [facility] | | | POC | | | [facility] | | | | | | OF CARE | | | | | | TESTS | | + + + + + + | LACTATE | 1.2 | 0.5 - 1.6 | [facility] - | | | ARTERIAL, | | mmol/L | [facility] | | | POC | | | [facility] | | | | | | OF CARE | | | | | | TESTS | | + + + + + + | METHEMOGLOB | 0.9 | 0.0 - 1.9 % | [facility] - | | | IN, POC | | | [facility] | | | | | | [facility] | | | | | | OF CARE | | | | | | TESTS | | + + + + + + | PAT TEMP | 37.0 | | [facility] - | | | ART, POC | | | [facility] | | | | | | [facility] | | | | | | OF CARE | | | | | | TESTS | | + + + + + + + + | Specimen | + + | Blood | + + + + + + + | Performing | Address | City/State/Zipcode | Phone Number | | Organization | | | | + + + + + | [facility] | [address] | [place], [place] | | | [facility] | [address] | [address] | | | TESTS | | | | + + + + + CAPILLARY BLOOD GLUCOSE (NO CHG), POC (02/18/2018 6:01 AM PDT) + +---------+ + + + | Component | Value | Ref Range | Performed | Pathologist | | | | | At | Signature | + +---------+ + + + | BLOOD | 139 (H) | 70 - 99 mg/dL | [facility] - | | | GLUCOSE, | | | [facility] | | | POC | | | [facility] | | | | | | OF CARE | | | | | | TESTS | | + +---------+ + + + + + | Specimen | + + | | + + + + + + + | Performing | Address | City/State/Zipcode | Phone Number | | Organization | | | | + + + + + | [facility] | [address] | [place], [place] | | | [facility] | [address] | [phone] | | | TESTS | | | | + + + + + INR (02/18/2018 12:42 AM PDT) + +-------+ + + + | Component | Value | Ref Range | Performed | Pathologist | | | | | At | Signature | + +-------+ + + + | INR | 1.19 | 0.90 - 1.20 INR | [facility] | | | | | | LABORATORY | | | | | | SERVICES, | | | | | | CORE | | + +-------+ + + + + + | Specimen | + + | Blood | + + + + + | Narrative | Performed At | + + + | INR Therapeutic ranges for full anticoagulation: INR for | [facility] | | Venous Thromboembolism (2.0 - 3.0) INR INR | LABORATORY | | for most patients with mech. valves (2.5 - 3.5) INR | SERVICES, CORE | + + + + + + + + | Performing | Address | City/State/Zipcode | Phone Number | | Organization | | | | + + + + + | [facility] | [address] | [place] [address] | | | SERVICES, NAY | [address] | | | + + + + + CBC (HEMOGRAM) ONLY (02/18/2018 12:42 AM PDT) + + + + + + | Component | Value | Ref Range | Performed | Pathologist | | | | | At | Signature | + + + + + + | WHITE CELL | 9.43 | 3.50 - 10.80 | [facility] | | | COUNT | | K/cu mm | LABORATORY | | | | | | SERVICES, | | | | | | CORE | | + + + + + + | RED CELL | 4.64 | 4.50 - 6.00 | [facility] | | | COUNT | | M/cu mm | LABORATORY | | | | | | SERVICES, | | | | | | CORE | | + + + + + + | HEMOGLOBIN | 13.2 (L) | 13.5 - 17.5 | [facility] | | | | | g/dL | LABORATORY | | | | | | SERVICES, | | | | | | CORE | | + + + + + + | HEMATOCRIT | 38.9 (L) | 41.0 - 53.0 % | [facility] | | | | | | LABORATORY | | | | | | SERVICES, | | | | | | CORE | | + + + + + + | MCV | 83.8 | 80.0 - 100.0 fL | [facility] | | | | | | LABORATORY | | | | | | SERVICES, | | | | | | CORE | | + + + + + + | MCHC | 33.9 | 32.0 - 36.0 | [facility] | | | | | g/dL | LABORATORY | | | | | | SERVICES, | | | | | | CORE | | + + + + + + | RDW SD | 42.3 | 35.1 - 46.3 fL | [facility] | | | | | | LABORATORY | | | | | | SERVICES, | | | | | | CORE | | + + + + + + | PLATELET | 218 | 150 - 400 K/cu | [facility] | | | COUNT | | mm | LABORATORY | | | | | | SERVICES, | | | | | | CORE | | + + + + + + | MPV | 8.8 (L) | 9.7 - 12.3 fL | [facility] | | | | | | LABORATORY | | | | | | SERVICES, | | | | | | CORE | | + + + + + + | NRBC% | 0.0 | 0.0 - 0.3 % | [facility] | | | | | | LABORATORY | | | | | | SERVICES, | | | | | | CORE | | + + + + + + | NRBC# | 0.00 | 0.00 - 0.02 | [facility] | | | | | K/cu mm | LABORATORY | | | | | | SERVICES, | | | | | | CORE | | + + + + + + + + | Specimen | + + | Blood | + + + + + | Narrative | Performed At | + + + | New reference ranges for MCV, MCHC, PLT, IG% and IG# effective | [facility] | | 12/30/2017 | LABORATORY | | | [place] [place] | + + + + + + + + | Performing | Address | City/State/Zipcode | Phone Number | | Organization | | | | + + + + + | [facility] | [address] | [place] [address] | | | SERVICES, CORE | [address] | | | + + + + + MAGNESIUM, PLASMA (02/18/2018 12:42 AM PDT) + +-------+ + + + | Component | Value | Ref Range | Performed | Pathologist | | | | | At | Signature | + +-------+ + + + | MAGNESIUM,P | 2.1 | 1.6 - 2.6 mg/dL | [facility] | | | [facility] | | | LABORATORY | | | | | | SERVICES, | | | | | | CORE | | + +-------+ + + + + + | Specimen | + + | Blood | + + + + + | Narrative | Performed At | + + + | Reference range change effective 04/06/17. | [facility] | | | LABORATORY | | | [facility] [place] | + + + + + + + + | Performing | Address | City/State/Zipcode | Phone Number | | Organization | | | | + + + + + | [facility] | [address] | [place] [address] | | | [place] | [address] | | | + + + + + RENAL FUNCTION SET (NA,K,CL,CO2,BUN,CREAT,GLUC,CA,PHOS,ALB ) (02/18/2018 12:42 AM PDT) + + + + + + | Component | Value | Ref Range | Performed | Pathologist | | | | | At | Signature | + + + + + + | GLUCOSE, | 146 (H) | 70 - 99 mg/dL | [facility] | | | PLASMA | | | LABORATORY | | | (LAB) | | | SERVICES, | | | | | | CORE | | + + + + + + | BUN, PLASMA | 11 | 6 - 20 mg/dL | [facility] | | | (LAB) | | | LABORATORY | | | | | | SERVICES, | | | | | | CORE | | + + + + + + | CREATININE | 0.68 (L) | 0.70 - 1.30 | [facility] | | | PLASMA | | mg/dL | LABORATORY | | | (LAB) | | | SERVICES, | | | | | | CORE | | + + + + + + | EGFR | >60 | >60 mL/min | [facility] | | | - | | | LABORATORY | | | AUSTRIAN | | | SERVICES, | | | | | | CORE | | + + + + + + | EGFR NON | >60 | >60 mL/min | [facility] | | | -SARAH | | | LABORATORY | | | RICAN | | | SERVICES, | | | | | | CORE | | + + + + + + | SODIUM, | 135 (L) | 136 - 145 | [facility] | | | PLASMA | | mmol/L | LABORATORY | | | (LAB) | | | SERVICES, | | | | | | CORE | | + + + + + + | POTASSIUM, | 4.1 | 3.4 - 5.0 | [facility] | | | PLASMA | | mmol/L | LABORATORY | | | (LAB) | | | SERVICES, | | | | | | CORE | | + + + + + + | CHLORIDE, | 101 | 97 - 108 mmol/L | [facility] | | | PLASMA | | | LABORATORY | | | (LAB) | | | SERVICES, | | | | | | CORE | | + + + + + + | TOTAL CO2, | 24 | 21 - 32 mmol/L | [facility] | | | PLASMA | | | LABORATORY | | | (LAB) | | | SERVICES, | | | | | | CORE | | + + + + + + | CALCIUM, | 8.8 | 8.6 - 10.2 | [facility] | | | PLASMA | | mg/dL | LABORATORY | | | (LAB) | | | SERVICES, | | | | | | CORE | | + + + + + + | CALCIUM(ALB | 9.7 | 8.6 - 10.2 | [facility] | | | CORRECTED) | | mg/dL | LABORATORY | | | | | | SERVICES, | | | | | | CORE | | + + + + + + | ALBUMIN, | 2.9 (L) | 3.5 - 4.7 g/dL | [facility] | | | PLASMA | | | LABORATORY | | | (LAB) | | | SERVICES, | | | | | | CORE | | + + + + + + | PHOSPHORUS, | 3.5 | 2.4 - 4.7 mg/dL | [facility] | | | PLASMA | | | LABORATORY | | | (LAB) | | | SERVICES, | | | | | | CORE | | + + + + + + | POTASSIUM | No Hemo | | [facility] | | | CMNT | | | LABORATORY | | | | | | SERVICES, | | | | | | CORE | | + + + + + + | ANION GAP | 10 | 4 - 11 mmol/L | [facility] | | | | | | LABORATORY | | | | | | SERVICES, | | | | | | CORE | | + + + + + + | ANION | 12 (H) | 4 - 11 mmol/L | [facility] | | | GAP(ALB | | | LABORATORY | | | CORRECTED) | | | SERVICES, | | | | | | CORE | | + + + + + + + + | Specimen | + + | Blood | + + + + + | Narrative | Performed At | + + + | GFR is estimated using the MDRD equation recommended by the | [facility] | | National Kidney Disease Education Program. Estimated GFR | LABORATORY | | Interpretive Information: <60 mL/min/1.73 sq | SERVICES, CORE | | m Chronic Kidney Disease <15 mL/min/1.73 | | | sq m Kidney Failure Estimated GFR greater | | | that 60 mL/min/1.73 sq m is of limited clinical value. The MDRD | | | equation is not valid in the following situations: - Patients under | | | 18 years of age - Severe malnutrition or obesity - Vegetarian diet | | | - Rapidly changing kidney function - Amputees, paraplegics, or other | | | muscle-wasting diseses | | + + + + + + + + | Performing | Address | City/State/Zipcode | Phone Number | | Organization | | | | + + + + + | [facility] | [address] | [place] [address] | | | SERVICES, CORE | [address] | | | + + + + + INTRAOPERATIVE NEURO MONITORING (02/18/2018) + + + | Narrative | Performed At | + + + | Patient Name: Jose Rafael Cisneros Date of : 1950 | | | Date of Test: 02/18/2018 Place | | | of Service: IP Intra Op [id number] INTRAOPERATIVE | | | NEURO MONITORING IOM: 10SS History: This is a 67 y.o. male | | | patient with a history of closed fracture of second cervical vertebra. | | | Patient was admitted for occiput to C1 posterior spinal fusion | | | extension. Conditions of Recording: Repetitive electrical | | | stimulation of the posterior tibial nerve was performed at the ankle, | | | with recordings over the popliteal fossa, cervical spine and | | | scalp. Repetitive electrical stimulation of the ulnar nerve | | | was performed at the wrist, with recordings over the brachial plexus, | | | the cervical spine and the scalp. To obtain transcranial | | | electrical motor evoked potentials, trains of 6 pulses with an | | | individual pulse duration of 0.5 ms and an interstimulus interval of 4 | | | ms were delivered over the bilateral central regions of the scalp. | | | Train of four response were repetitively done to compare the ratio | | | of the fourth to the first twitch when stimulated at a rate of 2 Hz to | | | assess the degree of neuromuscular blockade causing paralysis or | | | muscle weakness which would also result in decreased EMG activation | | | from stimulation. Intraoperative EEG was recorded using 8 channels | | | in a digital acquisition system. Electrodes were placed according | | | to the international 10-20 system. Description of recording: | | | Preoperative waveforms were obtained after general anesthesia for | | | baseline before (8:00 am) and after incision (9:31 am). During | | | surgery, SSEPs were repetitively performed. Following posterior | | | tibial nerve stimulation, there was a reproducible subcortical | | | potential, N29, at latencies of approximately 35.4 msec. A | | | reproducible cortical waveform, N37, was present at latencies of about | | | 47 msec. Following ulnar nerve stimulation, there was a | | | cervical potential, N13, at latencies of approximately 13.6 | | | msec. The cortical waveform, N20, was present at latencies of about | | | 24 msec. Following transcranial stimulation, there were | | | reproducible EMG responses from the upper and lower extremity muscles | | | bilaterally. The EEG contained symmetric mixed frequency | | | activity. During portions of the recording, the EEG was maintained in | | | a burst-suppression pattern with the use of increased anesthetics. | | | There were no lateralizing or other significant changes in the EEG | | | during the procedure. Intraoperative interpretation was performed | | | using real-time display of intraoperative neurophysiologic recordings | | | for 3 hours 27 minutes (8:00-11:27). Dr. Fung was continuously | | | available for communication with the recording technologist and the | | | operative team during this time. There was full attention on this case | | | by Dr. Dr. Fung for 1 hour and 12 minutes (8:00-8:30 and | | | 10:45-11:27). Impression: Intraoperative neuromonitoring with no | | | significant changes in baseline waveforms. by Yadiel Fung M.D., Ph.D. | | | Professor, Department of Neurology Clinical Neurophysiology | | | Department Suggested CPT: G0453 - IOM Continuous undivided | | | attention to single patient x 5 @ 15 min(s) G0453 - IOM Continuous | | | divided attention to single patient x 9 @ 15 min(s), with modifier GY | | | 99235 - Short Latency EP's Upper AND Lower extremities 62123 - | | | Central Motor EP's Upper AND Lower extremities 24142 - EEG in Sleep | | | Suggested Diagnosis: S14.152A Other incomplete lesion at c2 level of | | | cervical spinal cord, initial encounter | | + + + CAPILLARY BLOOD GLUCOSE (NO CHG), POC (02/17/2018 9:57 PM PDT) + +---------+ + + + | Component | Value | Ref Range | Performed | Pathologist | | | | | At | Signature | + +---------+ + + + | BLOOD | 200 (H) | 70 - 99 mg/dL | [facility] - | | | GLUCOSE, | | | [facility] | | | POC | | | [facility] | | | | | | OF CARE | | | | | | TESTS | | + +---------+ + + + + + | Specimen | + + | | + + + + + + + | Performing | Address | City/State/Zipcode | Phone Number | | Organization | | | | + + + + + | [facility] | [address] | [place], [place] | | | [facility] | [facility] | [phone] | | | TESTS | | | | + + + + + CAPILLARY BLOOD GLUCOSE (NO CHG), POC (02/17/2018 6:12 PM PDT) + +---------+ + + + | Component | Value | Ref Range | Performed | Pathologist | | | | | At | Signature | + +---------+ + + + | BLOOD | 211 (H) | 70 - 99 mg/dL | [facility] - | | | GLUCOSE, | | | [facility] | | | POC | | | [facility] | | | | | | OF CARE | | | | | | TESTS | | + +---------+ + + + + + | Specimen | + + | | + + + + + + + | Performing | Address | City/State/Zipcode | Phone Number | | Organization | | | | + + + + + | [facility] | [address] | [place], [place] | | | [facility] | [address] | [address] | | | TESTS | | | | + + + + + CAPILLARY BLOOD GLUCOSE (NO CHG), POC (02/17/2018 6:09 PM PDT) + +---------+ + + + | Component | Value | Ref Range | Performed | Pathologist | | | | | At | Signature | + +---------+ + + + | BLOOD | 220 (H) | 70 - 99 mg/dL | [facility] - | | | GLUCOSE, | | | [facility] | | | POC | | | [facility] | | | | | | OF CARE | | | | | | TESTS | | + +---------+ + + + + + | Specimen | + + | | + + + + + + + | Performing | Address | City/State/[facility] | Phone Number | | Organization | | | | + + + + + | [facility] | [address] | [place], [place] | | | [facility] | [address] | [address] | | | TESTS | | | | + + + + + CAPILLARY BLOOD GLUCOSE (NO CHG), POC (02/17/2018 11:46 AM PDT) + +---------+ + + + | Component | Value | Ref Range | Performed | Pathologist | | | | | At | Signature | + +---------+ + + + | BLOOD | 118 (H) | 70 - 99 mg/dL | [facility] - | | | GLUCO[facility], | | | [place] | | | POC | | | [place] | | | | | | OF CARE | | | | | | TESTS | | + +---------+ + + + + + | Specimen | + + | | + + + + + + + | Performing | Address | City/State/Zipcode | Phone Number | | Organization | | | | + + + + + | [facility] | [address] | [place], [place] | | | [facility] | [facility] | [phone] | | | TESTS | | | | + + + + + CAPILLARY BLOOD GLUCOSE (NO CHG), POC (02/17/2018 7:05 AM PDT) + +---------+ + + + | Component | Value | Ref Range | Performed | Pathologist | | | | | At | Signature | + +---------+ + + + | BLOOD | 106 (H) | 70 - 99 mg/dL | [facility] - | | | GLUCOSE, | | | [place] | | | POC | | | [facility] | | | | | | OF CARE | | | | | | TESTS | | + +---------+ + + + + + | Specimen | + + | | + + + + + + + | Performing | Address | City/State/Zipcode | Phone Number | | Organization | | | | + + + + + | [facility] | [address] | [place], [place] | | | [facility] | [address] | [address] | | | TESTS | | | | + + + + + INR (02/17/2018 12:31 AM PDT) + +-------+ + + + | Component | Value | Ref Range | Performed | Pathologist | | | | | At | Signature | + +-------+ + + + | INR | 1.07 | 0.90 - 1.20 INR | [facility] | | | | | | LABORATORY | | | | | | SERVICES, | | | | | | CORE | | + +-------+ + + + + + | Specimen | + + | Blood | + + + + + | Narrative | Performed At | + + + | INR Therapeutic ranges for full anticoagulation: INR for | [facility] | | Venous Thromboembolism (2.0 - 3.0) INR INR | LABORATORY | | for most patients with mech. valves (2.5 - 3.5) INR | SERVICES, CORE | + + + + + + + + | Performing | Address | City/State/Zipcode | Phone Number | | Organization | | | | + + + + + | [facility] | [phone] | [place] [address] | | | SERVICES, CORE | [address] | | | + + + + + CBC (HEMOGRAM) ONLY (02/17/2018 12:31 AM PDT) + + + + + + | Component | Value | Ref Range | Performed | Pathologist | | | | | At | Signature | + + + + + + | WHITE CELL | 9.36 | 3.50 - 10.80 | [facility] | | | COUNT | | K/cu mm | LABORATORY | | | | | | SERVICES, | | | | | | CORE | | + + + + + + | RED CELL | 4.43 (L) | 4.50 - 6.00 | [facility] | | | COUNT | | M/cu mm | LABORATORY | | | | | | SERVICES, | | | | | | CORE | | + + + + + + | HEMOGLOBIN | 12.6 (L) | 13.5 - 17.5 | [facility] | | | | | g/dL | LABORATORY | | | | | | SERVICES, | | | | | | CORE | | + + + + + + | HEMATOCRIT | 37.6 (L) | 41.0 - 53.0 % | [facility] | | | | | | LABORATORY | | | | | | SERVICES, | | | | | | CORE | | + + + + + + | MCV | 84.9 | 80.0 - 100.0 fL | [facility] | | | | | | LABORATORY | | | | | | SERVICES, | | | | | | CORE | | + + + + + + | MCHC | 33.5 | 32.0 - 36.0 | [facility] | | | | | g/dL | LABORATORY | | | | | | SERVICES, | | | | | | CORE | | + + + + + + | RDW SD | 43.1 | 35.1 - 46.3 fL | [facility] | | | | | | LABORATORY | | | | | | SERVICES, | | | | | | CORE | | + + + + + + | PLATELET | 192 | 150 - 400 K/cu | [facility] | | | COUNT | | mm | LABORATORY | | | | | | SERVICES, | | | | | | CORE | | + + + + + + | MPV | 8.9 (L) | 9.7 - 12.3 fL | [facility] | | | | | | LABORATORY | | | | | | SERVICES, | | | | | | CORE | | + + + + + + | NRBC% | 0.0 | 0.0 - 0.3 % | [facility] | | | | | | LABORATORY | | | | | | SERVICES, | | | | | | CORE | | + + + + + + | NRBC# | 0.00 | 0.00 - 0.02 | [facility] | | | | | K/cu mm | LABORATORY | | | | | | SERVICES, | | | | | | CORE | | + + + + + + + + | Specimen | + + | Blood | + + + + + | Narrative | Performed At | + + + | New reference ranges for MCV, MCHC, PLT, IG% and IG# effective | [facility] | | 12/30/2017 | LABORATORY | | | SERVICES, CORE | + + + + + + + + | Performing | Address | City/State/Zipcode | Phone Number | | Organization | | | | + + + + + | [facility] | [address] | [place] [address] | | | SERVICES, [place] | [address] | | | + + + + + MAGNESIUM, PLASMA (02/17/2018 12:31 AM PDT) + +-------+ + + + | Component | Value | Ref Range | Performed | Pathologist | | | | | At | Signature | + +-------+ + + + | MAGNESIUM,P | 2.1 | 1.6 - 2.6 mg/dL | [facility] | | | LASMA | | | LABORATORY | | | | | | SERVICES, | | | | | | CORE | | + +-------+ + + + + + | Specimen | + + | Blood | + + + + + | Narrative | Performed At | + + + | Reference range change effective 04/06/17. | [facility] | | | LABORATORY | | | SERVICES, CORE | + + + + + + + + | Performing | Address | City/State/Zipcode | Phone Number | | Organization | | | | + + + + + | [facility] | [address] | [place] [address] | | | SERVICES, [facility] | [address] | | | + + + + + RENAL FUNCTION SET (NA,K,CL,CO2,BUN,CREAT,GLUC,CA,PHOS,ALB ) (02/17/2018 12:31 AM PDT) + + + + + + | Component | Value | Ref Range | Performed | Pathologist | | | | | At | Signature | + + + + + + | GLUCOSE, | 205 (H) | 70 - 99 mg/dL | [facility] | | | PLASMA | | | LABORATORY | | | (LAB) | | | SERVICES, | | | | | | CORE | | + + + + + + | BUN, PLASMA | 14 | 6 - 20 mg/dL | [facility] | | | (LAB) | | | LABORATORY | | | | | | SERVICES, | | | | | | CORE | | + + + + + + | CREATININE | 0.68 (L) | 0.70 - 1.30 | [facility] | | | PLASMA | | mg/dL | LABORATORY | | | (LAB) | | | SERVICES, | | | | | | CORE | | + + + + + + | EGFR | >60 | >60 mL/min | [facility] | | | - | | | LABORATORY | | | AUSTRIAN | | | SERVICES, | | | | | | CORE | | + + + + + + | EGFR NON | >60 | >60 mL/min | [facility] | | | -SARAH | | | LABORATORY | | | RICAN | | | SERVICES, | | | | | | CORE | | + + + + + + | SODIUM, | 138 | 136 - 145 | [facility] | | | PLASMA | | mmol/L | LABORATORY | | | (LAB) | | | SERVICES, | | | | | | CORE | | + + + + + + | POTASSIUM, | 3.9 | 3.4 - 5.0 | [facility] | | | PLASMA | | mmol/L | LABORATORY | | | (LAB) | | | SERVICES, | | | | | | CORE | | + + + + + + | CHLORIDE, | 103 | 97 - 108 mmol/L | [facility] | | | PLASMA | | | LABORATORY | | | (LAB) | | | SERVICES, | | | | | | CORE | | + + + + + + | TOTAL CO2, | 28 | 21 - 32 mmol/L | [facility] | | | PLASMA | | | LABORATORY | | | (LAB) | | | SERVICES, | | | | | | CORE | | + + + + + + | CALCIUM, | 7.9 (L) | 8.6 - 10.2 | [facility] | | | PLASMA | | mg/dL | LABORATORY | | | (LAB) | | | SERVICES, | | | | | | CORE | | + + + + + + | CALCIUM(ALB | 8.9 | 8.6 - 10.2 | [facility] | | | CORRECTED) | | mg/dL | LABORATORY | | | | | | SERVICES, | | | | | | CORE | | + + + + + + | ALBUMIN, | 2.8 (L) | 3.5 - 4.7 g/dL | [facility] | | | PLASMA | | | LABORATORY | | | (LAB) | | | SERVICES, | | | | | | CORE | | + + + + + + | PHOSPHORUS, | 2.0 (L) | 2.4 - 4.7 mg/dL | [facility] | | | PLASMA | | | LABORATORY | | | (LAB) | | | SERVICES, | | | | | | CORE | | + + + + + + | POTASSIUM | No Hemo | | [facility] | | | CMNT | | | LABORATORY | | | | | | SERVICES, | | | | | | CORE | | + + + + + + | ANION GAP | 7 | 4 - 11 mmol/L | [facility] | | | | | | LABORATORY | | | | | | SERVICES, | | | | | | CORE | | + + + + + + | ANION | 10 | 4 - 11 mmol/L | [facility] | | | GAP(ALB | | | LABORATORY | | | CORRECTED) | | | SERVICES, | | | | | | CORE | | + + + + + + + + | Specimen | + + | Blood | + + + + + | Narrative | Performed At | + + + | GFR is estimated using the MDRD equation recommended by the | [facility] | | National Kidney Disease Education Program. Estimated GFR | LABORATORY | | Interpretive Information: <60 mL/min/1.73 sq | SERVICES, CORE | | m Chronic Kidney Disease <15 mL/min/1.73 | | | sq m Kidney Failure Estimated GFR greater | | | that 60 mL/min/1.73 sq m is of limited clinical value. The MDRD | | | equation is not valid in the following situations: - Patients under | | | 18 years of age - Severe malnutrition or obesity - Vegetarian diet | | | - Rapidly changing kidney function - Amputees, paraplegics, or other | | | muscle-wasting diseses | | + + + + + + + + | Performing | Address | City/State/Zipcode | Phone Number | | Organization | | | | + + + + + | [facility] | [address] | [place] [address] | | | N[place] | [address] | | | + + + + + CAPILLARY BLOOD GLUCOSE (NO CHG), POC (02/16/2018 8:55 PM PDT) + +---------+ + + + | Component | Value | Ref Range | Performed | Pathologist | | | | | At | Signature | + +---------+ + + + | BLOOD | 250 (H) | 70 - 99 mg/dL | [facility] - | | | GLUCOSE, | | | [facility] | | | POC | | | [facility] | | | | | | OF CARE | | | | | | TESTS | | + +---------+ + + + + + | Specimen | + + | | + + + + + + + | Performing | Address | City/State/Zipcode | Phone Number | | Organization | | | | + + + + + | [facility] | [address] | [place], [place] | | | [facility] | [address] | [address] | | | TESTS | | | | + + + + + CAPILLARY BLOOD GLUCOSE (NO CHG), POC (02/16/2018 5:46 PM PDT) + +---------+ + + + | Component | Value | Ref Range | Performed | Pathologist | | | | | At | Signature | + +---------+ + + + | BLOOD | 168 (H) | 70 - 99 mg/dL | [facility] - | | | GLUCOSE, | | | [facility] | | | POC | | | [facility] | | | | | | OF CARE | | | | | | TESTS | | + +---------+ + + + + + | Specimen | + + | | + + + + + + + | Performing | Address | City/State/Zipcode | Phone Number | | Organization | | | | + + + + + | [facility] | [address] | [place], [place] | | | [facility] | [address] | [address] | | | TESTS | | | | + + + + + 12 LEAD ECG (02/16/2018 3:03 PM PDT) + + + + + + | Component | Value | Ref Range | Performed | Pathologist | | | | | At | Signature | + + + + + + | VENTRICULAR | 76 | bpm | [facility] | | | RATE | | | OF | | | | | | CARDIOLOGY | | + + + + + + | ATRIAL RATE | 78 | ms | [facility] | | | | | | OF | | | | | | CARDIOLOGY | | + + + + + + | P-R | 198 | ms | [facility] | | | INTERVAL | | | OF | | | | | | CARDIOLOGY | | + + + + + + | P AXIS | 38 | deg | [facility] | | | | | | OF | | | | | | CARDIOLOGY | | + + + + + + | QRS | 88 | ms | [facility] | | | DURATION | | | OF | | | | | | CARDIOLOGY | | + + + + + + | QT | 395 | ms | [facility] | | | | | | OF | | | | | | CARDIOLOGY | | + + + + + + | QTCB | 445 | ms | [facility] | | | | | | OF | | | | | | CARDIOLOGY | | + + + + + + | R AXIS | -83 | deg | [facility] | | | | | | OF | | | | | | CARDIOLOGY | | + + + + + + | T AXIS | 45 | deg | [facility] | | | | | | OF | | | | | | CARDIOLOGY | | + + + + + + | ECG | Sinus rhythm | | [facility] | | | IMPRESSION | | | OF | | | | | | CARDIOLOGY | | + + + + + + | ECG | LAD, consider left | | [facility] | | | IMPRESSION | anterior fascicular | | OF | | | | block- ABNORMAL ECG - | | CARDIOLOGY | | + + + + + + | ECG | Electronically signed | | [facility] | | | IMPRESSION | by: DAVID CAMPOVERDE | | OF | | | | 02-16-2018 15:16:58 | | CARDIOLOGY | | + + + + + + + + | Specimen | + + | | + + + + + | Narrative | Performed At | + + + | | | + + + + + + + + | Performing | Address | City/State/Zipcode | Phone Number | | Organization | | | | + + + + + | [facility] | [address] | [place], [place] | | | CARDIOLOGY | [address] | [address] | | + + + + + CAPILLARY BLOOD GLUCOSE (NO CHG), POC (02/16/2018 11:36 AM PDT) + +---------+ + + + | Component | Value | Ref Range | Performed | Pathologist | | | | | At | Signature | + +---------+ + + + | BLOOD | 100 (H) | 70 - 99 mg/dL | [facility] - | | | GLUCOSE, | | | [facility] | | | POC | | | [facility] | | | | | | OF CARE | | | | | | TESTS | | + +---------+ + + + + + | Specimen | + + | | + + + + + + + | Performing | Address | City/State/Zipcode | Phone Number | | Organization | | | | + + + + + | [facility] | [address] | [place], [place] | | | [facility] OF CARE | [facility] | [address] | | | TESTS | | | | + + + + + CAPILLARY BLOOD GLUCOSE (NO CHG), POC (02/16/2018 8:57 AM PDT) + +---------+ + + + | Component | Value | Ref Range | Performed | Pathologist | | | | | At | Signature | + +---------+ + + + | BLOOD | 122 (H) | 70 - 99 mg/dL | [facility] - | | | GLUCOSE, | | | [facility] | | | POC | | | [facility] | | | | | | OF CARE | | | | | | TESTS | | + +---------+ + + + + + | Specimen | + + | | + + + + + + + | Performing | Address | City/State/Zipcode | Phone Number | | Organization | | | | + + + + + | [facility] | [address] | [place], [place] | | | [facility] | [address] | [address] | | | TESTS | | | | + + + + + CBC (HEMOGRAM) ONLY (02/16/2018 12:52 AM PDT) + + + + + + | Component | Value | Ref Range | Performed | Pathologist | | | | | At | Signature | + + + + + + | WHITE CELL | 12.85 (H) | 3.50 - 10.80 | [facility] | | | COUNT | | K/cu mm | LABORATORY | | | | | | SERVICES, | | | | | | CORE | | + + + + + + | RED CELL | 4.61 | 4.50 - 6.00 | [facility] | | | COUNT | | M/cu mm | LABORATORY | | | | | | SERVICES, | | | | | | CORE | | + + + + + + | HEMOGLOBIN | 13.1 (L) | 13.5 - 17.5 | [facility] | | | | | g/dL | LABORATORY | | | | | | SERVICES, | | | | | | CORE | | + + + + + + | HEMATOCRIT | 38.7 (L) | 41.0 - 53.0 % | [facility] | | | | | | LABORATORY | | | | | | SERVICES, | | | | | | CORE | | + + + + + + | MCV | 83.9 | 80.0 - 100.0 fL | [facility] | | | | | | LABORATORY | | | | | | SERVICES, | | | | | | CORE | | + + + + + + | MCHC | 33.9 | 32.0 - 36.0 | [facility] | | | | | g/dL | LABORATORY | | | | | | SERVICES, | | | | | | CORE | | + + + + + + | RDW SD | 42.5 | 35.1 - 46.3 fL | [facility] | | | | | | LABORATORY | | | | | | SERVICES, | | | | | | CORE | | + + + + + + | PLATELET | 217 | 150 - 400 K/cu | [facility] | | | COUNT | | mm | LABORATORY | | | | | | SERVICES, | | | | | | CORE | | + + + + + + | MPV | 8.7 (L) | 9.7 - 12.3 fL | [facility] | | | | | | LABORATORY | | | | | | SERVICES, | | | | | | CORE | | + + + + + + | NRBC% | 0.0 | 0.0 - 0.3 % | [facility] | | | | | | LABORATORY | | | | | | SERVICES, | | | | | | CORE | | + + + + + + | NRBC# | 0.00 | 0.00 - 0.02 | [facility] | | | | | K/cu mm | LABORATORY | | | | | | SERVICES, | | | | | | CORE | | + + + + + + + + | Specimen | + + | Blood | + + + + + | Narrative | Performed At | + + + | New reference ranges for MCV, MCHC, PLT, IG% and IG# effective | [facility] | | 12/30/2017 | LABORATORY | | | [facility] | + + + + + + + + | Performing | Address | City/State/Zipcode | Phone Number | | Organization | | | | + + + + + | [facility] | [address] | [place] [address] | | | N[place] KANG | [address] | | | + + + + + TROPONIN I, PLASMA (02/16/2018 12:52 AM PDT) + +-------+ + + + | Component | Value | Ref Range | Performed | Pathologist | | | | | At | Signature | + +-------+ + + + | TROPONIN I | 0.08 | <0.80 ng/mL | [facility] | | | | | | LABORATORY | | | | | | SERVICES, | | | | | | CORE | | + +-------+ + + + + + | Specimen | + + | Blood | + + + + + + + | Performing | Address | City/State/Zipcode | Phone Number | | Organization | | | | + + + + + | [facility] | [address] | [place] [address] | | | SERVICES, CORE | [address] | | | + + + + + MAGNESIUM, PLASMA (02/16/2018 12:52 AM PDT) + +-------+ + + + | Component | Value | Ref Range | Performed | Pathologist | | | | | At | Signature | + +-------+ + + + | MAGNESIUM,P | 2.5 | 1.6 - 2.6 mg/dL | [facility] | | | LASMA | | | LABORATORY | | | | | | SERVICES, | | | | | | CORE | | + +-------+ + + + + + | Specimen | + + | Blood | + + + + + | Narrative | Performed At | + + + | Reference range change effective 04/06/17. | [facility] | | | LABORATORY | | | [facility] | + + + + + + + + | Performing | Address | City/State/Zipcode | Phone Number | | Organization | | | | + + + + + | [facility] | [address] | [place] [address] | | | SERVICES, CORE | [address] | | | + + + + + RENAL FUNCTION SET (NA,K,CL,CO2,BUN,CREAT,GLUC,CA,PHOS,ALB ) (02/16/2018 12:52 AM PDT) + + + + + + | Component | Value | Ref Range | Performed | Pathologist | | | | | At | Signature | + + + + + + | GLUCOSE, | 158 (H) | 70 - 99 mg/dL | [facility] | | | PLASMA | | | LABORATORY | | | (LAB) | | | SERVICES, | | | | | | CORE | | + + + + + + | BUN, PLASMA | 20 | 6 - 20 mg/dL | [facility] | | | (LAB) | | | LABORATORY | | | | | | SERVICES, | | | | | | CORE | | + + + + + + | CREATININE | 0.66 (L) | 0.70 - 1.30 | [facility] | | | PLASMA | | mg/dL | LABORATORY | | | (LAB) | | | SERVICES, | | | | | | CORE | | + + + + + + | EGFR | >60 | >60 mL/min | [facility] | | | - | | | LABORATORY | | | AUSTRIAN | | | SERVICES, | | | | | | CORE | | + + + + + + | EGFR NON | >60 | >60 mL/min | [facility] | | | -SARAH | | | LABORATORY | | | RICAN | | | SERVICES, | | | | | | CORE | | + + + + + + | SODIUM, | 136 | 136 - 145 | [facility] | | | PLASMA | | mmol/L | LABORATORY | | | (LAB) | | | SERVICES, | | | | | | CORE | | + + + + + + | POTASSIUM, | 3.7 | 3.4 - 5.0 | [facility] | | | PLASMA | | mmol/L | LABORATORY | | | (LAB) | | | SERVICES, | | | | | | CORE | | + + + + + + | CHLORIDE, | 103 | 97 - 108 mmol/L | [facility] | | | PLASMA | | | LABORATORY | | | (LAB) | | | SERVICES, | | | | | | CORE | | + + + + + + | TOTAL CO2, | 26 | 21 - 32 mmol/L | [facility] | | | PLASMA | | | LABORATORY | | | (LAB) | | | SERVICES, | | | | | | CORE | | + + + + + + | CALCIUM, | 8.3 (L) | 8.6 - 10.2 | [facility] | | | PLASMA | | mg/dL | LABORATORY | | | (LAB) | | | SERVICES, | | | | | | CORE | | + + + + + + | CALCIUM(ALB | 9.1 | 8.6 - 10.2 | [facility] | | | CORRECTED) | | mg/dL | LABORATORY | | | | | | SERVICES, | | | | | | CORE | | + + + + + + | ALBUMIN, | 3.0 (L) | 3.5 - 4.7 g/dL | [facility] | | | PLASMA | | | LABORATORY | | | (LAB) | | | SERVICES, | | | | | | CORE | | + + + + + + | PHOSPHORUS, | 2.5 | 2.4 - 4.7 mg/dL | [facility] | | | PLASMA | | | LABORATORY | | | (LAB) | | | SERVICES, | | | | | | CORE | | + + + + + + | POTASSIUM | No Hemo | | [facility] | | | CMNT | | | LABORATORY | | | | | | SERVICES, | | | | | | CORE | | + + + + + + | ANION GAP | 7 | 4 - 11 mmol/L | [facility] | | | | | | LABORATORY | | | | | | SERVICES, | | | | | | CORE | | + + + + + + | ANION | 9 | 4 - 11 mmol/L | [facility] | | | GAP(ALB | | | LABORATORY | | | CORRECTED) | | | SERVICES, | | | | | | CORE | | + + + + + + + + | Specimen | + + | Blood | + + + + + | Narrative | Performed At | + + + | GFR is estimated using the MDRD equation recommended by the | [facility] | | National Kidney Disease Education Program. Estimated GFR | LABORATORY | | Interpretive Information: <60 mL/min/1.73 sq | SERVICES, CORE | | m Chronic Kidney Disease <15 mL/min/1.73 | | | sq m Kidney Failure Estimated GFR greater | | | that 60 mL/min/1.73 sq m is of limited clinical value. The MDRD | | | equation is not valid in the following situations: - Patients under | | | 18 years of age - Severe malnutrition or obesity - Vegetarian diet | | | - Rapidly changing kidney function - Amputees, paraplegics, or other | | | muscle-wasting diseses | | + + + + + + + + | Performing | Address | City/State/Zipcode | Phone Number | | Organization | | | | + + + + + | [facility] [employer] | [address] | [place] [address] | | | SERVICES, CORE | [address] | | | + + + + + TSH (02/16/2018 12:52 AM PDT) + +-------+ + + + | Component | Value | Ref Range | Performed | Pathologist | | | | | At | Signature | + +-------+ + + + | TSH | 2.75 | 0.46 - 5.56 | [facility] | | | | | mIU/L | LABORATORY | | | | | | SERVICES, | | | | | | CORE | | + +-------+ + + + + + | Specimen | + + | Blood | + + + + + | Narrative | Performed At | + + + | TSH reference ranges are influenced by a variety of environmental | [facility] | | influences, age, gender and ethnicity. The supplied reference limits | LABORATORY | | are based on published values utilizing a similar TSH assay, and | SERVICES, CORE | | should be interpreted with caution. | | + + + + + + + + | Performing | Address | City/State/Zipcode | Phone Number | | Organization | | | | + + + + + | [facility] | [address] | [place] [address] | | | SERVICES, CORE | [address] | | | + + + + + VITAMIN D, 25-HYDROXY, SERUM (02/16/2018 12:52 AM PDT) + +-------+ + + + | Component | Value | Ref Range | Performed | Pathologist | | | | | At | Signature | + +-------+ + + + | VITAMIN D | 30.7 | 30 - 80 ng/mL | [facility] | | | 25 HYDROXY | | | LABORATORY | | | | | | SERVICES, | | | | | | CORE | | + +-------+ + + + + + | Specimen | + + | Blood | + + + + + | Narrative | Performed At | + + + | Reference Interval: 0-18years: Deficiency: <20 ng/mL | [facility] | | Optimum level: >or=20 | LABORATORY | | ng/mL | SERVICES, CORE | | >18years: Deficiency: <20 ng/mL | | | Insufficiency: 20-29 ng/mL | | | Optimum Level: 30-80 ng/mL | | | High: 81-150 ng/ml | | | Toxic: >150 ng/mL | | + + + + + + + + | Performing | Address | City/State/Zipcode | Phone Number | | Organization | | | | + + + + + | [facility] | [address] | [place] [address] | | | SERVICES, CORE | [address] | | | + + + + + CAPILLARY BLOOD GLUCOSE (NO CHG), POC (02/15/2018 10:21 PM PDT) + +---------+ + + + | Component | Value | Ref Range | Performed | Pathologist | | | | | At | Signature | + +---------+ + + + | BLOOD | 133 (H) | 70 - 99 mg/dL | [facility] - | | | GLUCOSE, | | | [facility] | | | POC | | | [facility] | | | | | | OF CARE | | | | | | TESTS | | + +---------+ + + + + + | Specimen | + + | | + + + + + + + | Performing | Address | City/State/Zipcode | Phone Number | | Organization | | | | + + + + + | [facility] | [address] | [place], [place] | | | [facility] CARE | [address] | [address] | | | TESTS | | | | + + + + + TROPONIN I, PLASMA (02/15/2018 7:22 PM PDT) + +-------+ + + + | Component | Value | Ref Range | Performed | Pathologist | | | | | At | Signature | + +-------+ + + + | TROPONIN I | 0.13 | <0.80 ng/mL | [facility] | | | | | | LABORATORY | | | | | | SERVICES, | | | | | | CORE | | + +-------+ + + + + + | Specimen | + + | Blood | + + + + + + + | Performing | Address | City/State/Zipcode | Phone Number | | Organization | | | | + + + + + | [facility] | [address] | [place] [address] | | | SERVICES, CORE | [address] | | | + + + + + ANTIBODY SCREEN (02/15/2018 6:06 PM PDT) + + + + + + | Component | Value | Ref Range | Performed | Pathologist | | | | | At | Signature | + + + + + + | Antibody | Negative | | [facility] | | | Screen | | | LABORATORY | | | | | | SERVICES, | | | | | | TRANSFUSION | | | | | | MEDICINE | | + + + + + + + + | Specimen | + + | Blood | + + + + + + + | Performing | Address | City/State/Zipcode | Phone Number | | Organization | | | | + + + + + | [facility] | [address] | [place] [address] | | | SERVICES, | [address] | | | | TRANSFUSION MEDICINE | | | | + + + + + ABO & RH TYPE (02/15/2018 6:06 PM PDT) + + + + + + | Component | Value | Ref Range | Performed | Pathologist | | | | | At | Signature | + + + + + + | ABO Group | A | | [facility] | | | | | | LABORATORY | | | | | | SERVICES, | | | | | | TRANSFUSION | | | | | | MEDICINE | | + + + + + + | Rh Type | Positive | | [facility] | | | | | | LABORATORY | | | | | | SERVICES, | | | | | | TRANSFUSION | | | | | | MEDICINE | | + + + + + + + + | Specimen | + + | Blood | + + + + + + + | Performing | Address | City/State/Zipcode | Phone Number | | Organization | | | | + + + + + | [facility] | [address] | [place] [address] | | | SERVICES, | [address] | | | | TRANSFUSION MEDICINE | | | | + + + + + CHEM 8 W/H&H,POC (02/15/2018 4:25 PM PDT) + + + + + + | Component | Value | Ref Range | Performed | Pathologist | | | | | At | Signature | + + + + + + | SODIUM, POC | 136 | 134 - 143 | [facility] - | | | | | mmol/L | [facility] | | | | | | [facility] | | | | | | OF CARE | | | | | | TESTS | | + + + + + + | POTASSIUM, | 4.3 | 3.4 - 5.0 | [facility] - | | | POC | | mmol/L | [facility] | | | | | | [facility] | | | | | | OF CARE | | | | | | TESTS | | + + + + + + | CHLORIDE, | 99.0 | 97 - 108 mmol/L | [facility] - | | | POC | | | [facility] | | | | | | [facility] | | | | | | OF CARE | | | | | | TESTS | | + + + + + + | IONIZED | 1.04 (L) | 1.14 - 1.32 | [facility] - | | | CALCIUM, | | mmol/L | [facility] | | | POC | | | [facility] | | | | | | OF CARE | | | | | | TESTS | | + + + + + + | TCO2, POC | 27 | 22 - 29 mmol/L | [facility] - | | | | | | [facility] | | | | | | [facility] | | | | | | OF CARE | | | | | | TESTS | | + + + + + + | GLUCOSE, | 167 (H) | 70 - 99 mg/dL | [facility] - | | | POC | | | [facility] | | | | | | [facility] | | | | | | OF CARE | | | | | | TESTS | | + + + + + + | BUN, POC | 28 (H) | 6 - 20 mg/dL | [facility] - | | | | | | [facility] | | | | | | [facility] | | | | | | [facility] CARE | | | | | | TESTS | | + + + + + + | CREATININE, | 0.8 | 0.7 - 1.3 mg/dL | [facility] - | | | POC | | | [facility] | | | | | | [facility] | | | | | | OF CARE | | | | | | TESTS | | + + + + + + | HEMOGLOBIN, | 16.7 | 13.5 - 17.5 | [facility] - | | | POC | | g/dL | [facility] | | | | | | [facility] | | | | | | OF CARE | | | | | | TESTS | | + + + + + + | HEMATOCRIT, | 49 | 41.0 - 53.0 | [facility] - | | | POC | | %PCV | [facility] | | | | | | [facility] | | | | | | OF CARE | | | | | | TESTS | | + + + + + + + + | Specimen | + + | | + + + + + + + | Performing | Address | City/State/Zipcode | Phone Number | | Organization | | | | + + + + + | [facility] | [address] | [place], [place] | | | [facility] | [address] | [address] | | | TESTS | | | | + + + + + CT SPINE THOR AND LUMB WO CONTRAST (02/15/2018 4:12 PM PDT) + + | Specimen | + + | | + + + + + | Narrative | Performed At | + + + | EXAM: CT THORACIC AND LUMBAR SPINE WITHOUT CONTRAST HISTORY: | [facility] | | Trauma for follow-up back tenderness. COMPARISON: None. TECHNIQUE: | RADIOLOGY VOICE | | CT thoracic and lumbar spine without contrast, including 2D | RECOGNITION 2 | | multiplanar reformations. FINDINGS: THORACIC/LUMBAR: | | | ALIGNMENT: There is straightening of the normal thoracic kyphosis and | | | lumbar lordosis. VERTEBRAE: There is extensive anterior bridging | | | syndesmophytes and bony bridging across the facet joints, consistent | | | with ankylosing spondylitis as an underlying etiology. There is no | | | acute fractures. There is diffuse osteopenia. PARASPINAL SOFT | | | TISSUES: Unremarkable. OTHER: Partial visualization of diffuse | | | scattered bilateral pulmonary consolidation is incompletely evaluated. | | | Tortuous aorta without aneurysm. IMPRESSION: 1. Advanced | | | sequela of ankylosing spondylitis without acute fractures of the | | | thoracic or lumbar spine. 2. Diffuse osteopenia. 3. Partial | | | visualization of scattered bilaterally pulmonary consolidations can be | | | further evaluated with dedicated chest CT. I have personally | | | reviewed the images and, if necessary, edited the report. I agree with | | | the report as now presented. Final signature: Pee Medina | | | 02/15/2018 4:56 PM Preliminary: Soo Yost MD | | | 02/15/2018 4:48 PM Dictation initiated: Soo Yost MD | | | 02/15/2018 4:30 PM | | + + + + + | Procedure Note | + + | Service Account, Radiant Res In Interface - 02/15/2018 4:58 PM PDT EXAM: CT THORACIC | | AND LUMBAR SPINE WITHOUT CONTRAST HISTORY: Trauma for follow-up back tenderness. | | COMPARISON: None. TECHNIQUE: CT thoracic and lumbar spine without contrast, including 2D | | multiplanar reformations. FINDINGS: THORACIC/LUMBAR: ALIGNMENT: There is straightening | | of the normal thoracic kyphosis and lumbar lordosis.VERTEBRAE: There is extensive | | anterior bridging syndesmophytes and bony bridging across the facet joints, consistent | | with ankylosing spondylitis as an underlying etiology. There is no acute fractures. | | There is diffuse osteopenia.PARASPINAL SOFT TISSUES: Unremarkable. OTHER: Partial | | visualization of diffuse scattered bilateral pulmonary consolidation is incompletely | | evaluated. Tortuous aorta without aneurysm. IMPRESSION: 1. Advanced sequela of | | ankylosing spondylitis without acute fractures of the thoracic or lumbar spine. 2. | | Diffuse osteopenia. 3. Partial visualization of scattered bilaterally pulmonary | | consolidations can be further evaluated with dedicated chest CT. I have personally | | reviewed the images and, if necessary, edited the report. I agree with the report as now | | presented. Final signature: Pee Medina MD 02/15/2018 4:56 PM Preliminary: Soo Yost MD 02/15/2018 4:48 PM Dictation initiated: Soo Yost MD 02/15/2018 | | 4:30 PM | | | |1. Advanced sequela of ankylosing spondylitis without acute fractures of the thoracic or eren mbar spine. | | | |2. Diffuse osteopenia. | | | |3. Partial visualization of scattered bilaterally pulmonary consolidations can be further e valuated with dedicated chest CT. | | | |I have personally reviewed the images and, if necessary, edited the report. I agree with th e report as now presented. | | | |Final signature: Pee Medina MD 02/15/2018 4:56 PM | |Preliminary: Soo Yost MD 02/15/2018 4:48 PM | |Dictation initiated: Soo Yost MD 02/15/2018 4:30 PM | + + + +---------+ + + | Performing | Address | City/State/Zipcode | Phone Number | | Organization | | | | + +---------+ + + | [facility] | | | | | VOICE RECOGNITION 2 | | | | + +---------+ + + CTA NECK W CONTRAST (02/15/2018 4:11 PM PDT) + + | Specimen | + + | | + + + + + | Narrative | Performed At | + + + | EXAM: CTA NECK HISTORY: Ground level fall with known c spine | [facility] | | fracture COMPARISON: None. TECHNIQUE: CT angiogram of the | RADIOLOGY VOICE | | neck with iodine based intravenous contrast. Multiplanar MIP 3D | RECOGNITION 2 | | reconstructions. Stenoses are reported relative to the distal | | | normal vessel. FINDINGS: LEFT CAROTID: No aneurysm, | | | dissection, traumatic vascular injury, or hemodynamically significant | | | stenoses. There are scattered calcifications within the cavernous and | | | supraclinoid ICA without stenosis. RIGHT CAROTID: No aneurysm, | | | dissection, traumatic vascular injury, or hemodynamically significant | | | stenoses or there are scattered calcifications within the cavernous | | | and supraclinoid ICA without stenosis. VERTEBROBASILAR: No | | | aneurysm, dissection, traumatic vascular injury, or hemodynamically | | | significant stenoses. 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 NON-VASCULAR STRUCTURES: There is an acute fracture of | | | the bilateral lamina of C2 with 8mm anterolisthesis of C2 on C3. | | | Fracture planes also extends into the bilateral transverse foramen. | | | Findings suggestive of ankylosing spondylitis is noted. This includes | | | extensive anterior bridging syndesmophytes with bony bridging across | | | the facet joints. Extensive posterior spinal fusion from C3 to T2 with | | | laminectomies is intact without fracture. There is a large | | | heterogeneous left thyroid nodule which measures 4.2 x 2.6 x 4.8 cm. | | | Extensive apical consolidations are partially visualized. There is no | | | prevertebral soft tissue swelling. No evidence of epidural collection | | | within the spinal canal. IMPRESSION: 1. Bilateral C2 posterior | | | element fractures and 8 mm anterolisthesis of C2 on C3 as described | | | above. 2. No evidence of aneurysm, dissection, or traumatic | | | vascular injury. 3. Incidental left thyroid lesion can be further | | | evaluated with ultrasound if clinically indicated. 4. Advanced | | | ankylosing spondylitis. I have personally reviewed the images and, | | | if necessary, edited the report. I agree with the report as now | | | presented. Final signature: Pee Medina MD 02/15/2018 4:56 | | | PM Preliminary: Soo Yost MD 02/15/2018 4:54 PM | | | Dictation initiated: Soo Yost MD 02/15/2018 4:12 PM | | + + + + + | Procedure Note | + + | Service Account, [facility] [employer] In Interface - 02/15/2018 4:57 PM PDT EXAM: CTA NECK | | HISTORY: Ground level fall with known c spine fracture COMPARISON: None. TECHNIQUE: CT | | angiogram of the neck with iodine based intravenous contrast. Multiplanar MIP 3D | | reconstructions. Stenoses are reported relative to the distal normal vessel. FINDINGS: | | LEFT CAROTID: No aneurysm, dissection, traumatic vascular injury, or hemodynamically | | significant stenoses. There are scattered calcifications within the cavernous and | | supraclinoid ICA without stenosis.RIGHT CAROTID: No aneurysm, dissection, traumatic | | vascular injury, or hemodynamically significant stenoses or there are scattered | | calcifications within the cavernous and supraclinoid ICA without | | stenosis.VERTEBROBASILAR: No aneurysm, dissection, traumatic vascular injury, or | | hemodynamically significant stenoses. The right vertebral artery is asymmetrically | | narrowed without a focal region of stricturing, likely congenital etiology. NON-VASCULAR | | STRUCTURES: There is an acute fracture of the bilateral lamina of C2 with 8mm | | anterolisthesis of C2 on C3. Fracture planes also extends into the bilateral transverse | | foramen. Findings suggestive of ankylosing spondylitis is noted. This includes extensive | | anterior bridging syndesmophytes with bony bridging across the facet joints. Extensive | | posterior spinal fusion from C3 to T2 with laminectomies is intact without fracture. | | There is a large heterogeneous left thyroid nodule which measures 4.2 x 2.6 x 4.8 cm. | | Extensive apical consolidations are partially visualized. There is no prevertebral soft | | tissue swelling. No evidence of epidural collection within the spinal canal. IMPRESSION: | | 1. Bilateral C2 posterior element fractures and 8 mm anterolisthesis of C2 on C3 as | | described above. 2. No evidence of aneurysm, dissection, or traumatic vascular injury. | | 3. Incidental left thyroid lesion can be further evaluated with ultrasound if clinically | | indicated. 4. Advanced ankylosing spondylitis. I have personally reviewed the images | | and, if necessary, edited the report. I agree with the report as now presented. Final | | signature: Pee Medina MD 02/15/2018 4:56 PM Preliminary: Soo Yost MD | | 02/15/2018 4:54 PM Dictation initiated: Soo Yost MD 02/15/2018 4:12 PM | |4. Advanced ankylosing spondylitis. | | | |I have personally reviewed the images and, if necessary, edited the report. I agree with th e report as now presented. | | | |Final signature: Pee Medina MD 02/15/2018 4:56 PM | |Preliminary: Soo Yost MD 02/15/2018 4:54 PM | |Dictation initiated: Soo Yost MD 02/15/2018 4:12 PM | + + + +---------+ + + | Performing | Address | City/State/Zipcode | Phone Number | | Organization | | | | + +---------+ + + | [facility] | | | | | VOICE RECOGNITION 2 | | | | + +---------+ + + TROPONIN, POC (02/15/2018 3:43 PM PDT) + +-------+ + + + | Component | Value | Ref Range | Performed | Pathologist | | | | | At | Signature | + +-------+ + + + | TROPONIN, | 0.08 | 0.0 - 0.49 | [facility] - | | | POC | | ng/mL | [facility] | | | | | | [facility] | | | | | | OF CARE | | | | | | TESTS | | + +-------+ + + + + + | Specimen | + + | | + + + + + + + | Performing | Address | City/State/Zipcode | Phone Number | | Organization | | | | + + + + + | [facility] | [address] | [place], [place] | | | [facility] | [address] | [address] | | | TESTS | | | | + + + + + ED -LORETTA SALES (02/15/2018 3:38 PM PDT) + + + + + + | Component | Value | Ref Range | Performed | Pathologist | | | | | At | Signature | + + + + + + | ED BG POC | 29 | 23 - 29 mmol/L | [facility] - | | | TC02 | | | [facility] | | | | | | [facility] | | | | | | OF CARE | | | | | | TESTS | | + + + + + + | ED BG POC | 7.32 (L) | 7.35 - 7.45 | [facility] - | | | PH | | | [facility] | | | | | | [facility] | | | | | | OF CARE | | | | | | TESTS | | + + + + + + | ED BG POC | 54 (H) | 35 - 50 mmHg | [facility] - | | | PCO2 | | | [facility] | | | | | | [facility] | | | | | | OF CARE | | | | | | TESTS | | + + + + + + | ED BG POC | 27 | 22 - 28 mmol/L | [facility] - | | | HCO3 | | | [facility] | | | | | | [facility] | | | | | | OF CARE | | | | | | TESTS | | + + + + + + | ED BG POC | 1.0 | mmol/L | [facility] - | | | BE | | | [facility] | | | | | | [facility] | | | | | | OF CARE | | | | | | TESTS | | + + + + + + | ED BG POC | <50 (L) | 30 - 55 mmHg | [facility] - | | | PO2 | | | [facility] | | | | | | [facility] | | | | | | OF CARE | | | | | | TESTS | | + + + + + + | ED BG POC | 39 | % | [facility] - | | | SO2 | | | [facility] | | | | | | [facility] | | | | | | OF CARE | | | | | | TESTS | | + + + + + + | ED LACTATE | 2.0 (H) | 0.5 - 2.0 | [facility] - | | | POC | | mmol/L | [facility] | | | | | | [facility] | | | | | | OF CARE | | | | | | TESTS | | + + + + + + | ED BG POC | 98.4 F | | [facility] - | | | TEMP | | | [facility] | | | | | | [facility] | | | | | | OF CARE | | | | | | TESTS | | + + + + + + | ISTAT | VENOUS | | [facility] - | | | SAMPLE TYPE | | | [facility] | | | | | | [facility] | | | | | | OF CARE | | | | | | TESTS | | + + + + + + + + | Specimen | + + | | + + + + + + + | Performing | Address | City/State/Zipcode | Phone Number | | Organization | | | | + + + + + | [facility] | [address] | [place], [place] | | | [facility] | [address] | [address] | | | TESTS | | | | + + + + + RAINBOW HOLD TUBE - RED TOP (02/15/2018 3:33 PM PDT) + + | Specimen | + + | Blood | + + + + + + + | Performing | Address | City/State/Zipcode | Phone Number | | Organization | | | | + + + + + | [facility] | [address] | [place] [address] | | | [place], [place] | [address] | | | + + + + + RAINBOW HOLD TUBE - PURPLE TOP (02/15/2018 3:33 PM PDT) + + | Specimen | + + | Blood | + + + + + + + | Performing | Address | City/State/Zipcode | Phone Number | | Organization | | | | + + + + + | [facility] | [address] | [place] [address] | | | SERVICES, CORE | [address] | | | + + + + + RAINBOW HOLD TUBE - GREEN TOP (02/15/2018 3:33 PM PDT) + + | Specimen | + + | Blood | + + + + + + + | Performing | Address | City/State/Zipcode | Phone Number | | Organization | | | | + + + + + | [facility] | [address] | [place] [address] | | | SERVICES, CORE | [address] | | | + + + + + RAINBOW HOLD TUBE - BLUE TOP (02/15/2018 3:33 PM PDT) + + | Specimen | + + | Blood | + + + + + + + | Performing | Address | City/State/Zipcode | Phone Number | | Organization | | | | + + + + + | [facility] | [address] | [place] [address] | | | SERVICES, CORE | [address] | | | + + + + + BLOOD BANK HOLD TUBE - DON T PROCESS (02/15/2018 3:33 PM PDT) + + + + + + | Component | Value | Ref Range | Performed | Pathologist | | | | | At | Signature | + + + + + + | SPECIMEN | Sample received with | | [facility] | | | COLLECTED, | adeq label/volume to | | LABORATORY | | | HELD | process | | SERVICES, | | | | | | TRANSFUSION | | | | | | MEDICINE | | + + + + + + + + | Specimen | + + | Blood | + + + + + + + | Performing | Address | City/State/Zipcode | Phone Number | | Organization | | | | + + + + + | [facility] | [address] | [place] [address] | | | SERVICES, | [address] | | | | TRANSFUSION MEDICINE | | | | + + + + + CBC (HEMOGRAM) ONLY (02/15/2018 3:33 PM PDT) + + + + + + | Component | Value | Ref Range | Performed | Pathologist | | | | | At | Signature | + + + + + + | WHITE CELL | 21.13 (H) | 3.50 - 10.80 | [facility] | | | COUNT | | K/cu mm | LABORATORY | | | | | | SERVICES, | | | | | | CORE | | + + + + + + | RED CELL | 5.23 | 4.50 - 6.00 | [facility] | | | COUNT | | M/cu mm | LABORATORY | | | | | | SERVICES, | | | | | | CORE | | + + + + + + | HEMOGLOBIN | 14.9 | 13.5 - 17.5 | [facility] | | | | | g/dL | LABORATORY | | | | | | SERVICES, | | | | | | CORE | | + + + + + + | HEMATOCRIT | 44.5 | 41.0 - 53.0 % | [facility] | | | | | | LABORATORY | | | | | | SERVICES, | | | | | | CORE | | + + + + + + | MCV | 85.1 | 80.0 - 100.0 fL | [facility] | | | | | | LABORATORY | | | | | | SERVICES, | | | | | | CORE | | + + + + + + | MCHC | 33.5 | 32.0 - 36.0 | [facility] | | | | | g/dL | LABORATORY | | | | | | SERVICES, | | | | | | CORE | | + + + + + + | RDW SD | 42.5 | 35.1 - 46.3 fL | [facility] | | | | | | LABORATORY | | | | | | SERVICES, | | | | | | CORE | | + + + + + + | PLATELET | 271 | 150 - 400 K/cu | [facility] | | | COUNT | | mm | LABORATORY | | | | | | SERVICES, | | | | | | CORE | | + + + + + + | MPV | 9.8 | 9.7 - 12.3 fL | [facility] | | | | | | LABORATORY | | | | | | SERVICES, | | | | | | CORE | | + + + + + + | NRBC% | 0.0 | 0.0 - 0.3 % | [facility] | | | | | | LABORATORY | | | | | | SERVICES, | | | | | | CORE | | + + + + + + | NRBC# | 0.00 | 0.00 - 0.02 | [facility] | | | | | K/cu mm | LABORATORY | | | | | | SERVICES, | | | | | | CORE | | + + + + + + + + | Specimen | + + | Blood | + + + + + | Narrative | Performed At | + + + | New reference ranges for MCV, MCHC, PLT, IG% and IG# effective | [facility] | | 12/30/2017 Must be ordered if Coagulopathy Panel is ordered | LABORATORY | | | SERVICESNAY | + + + + + + + + | Performing | Address | City/State/Zipcode | Phone Number | | Organization | | | | + + + + + | [facility] | [address] | [place] [address] | | | SERVICESNAY | [address] | | | + + + + + RENAL FUNCTION SET (NA,K,CL,CO2,BUN,CREAT,GLUC,CA,PHOS,ALB ) (02/15/2018 3:33 PM PDT) + +---------+ + + + | Component | Value | Ref Range | Performed | Pathologist | | | | | At | Signature | + +---------+ + + + | GLUCOSE, | 166 (H) | 70 - 99 mg/dL | [facility] | | | PLASMA | | | LABORATORY | | | (LAB) | | | SERVICES, | | | | | | CORE | | + +---------+ + + + | BUN, PLASMA | 28 (H) | 6 - 20 mg/dL | [facility] | | | (LAB) | | | LABORATORY | | | | | | SERVICES, | | | | | | CORE | | + +---------+ + + + | CREATININE | 0.76 | 0.70 - 1.30 | [facility] | | | PLASMA | | mg/dL | LABORATORY | | | (LAB) | | | SERVICES, | | | | | | CORE | | + +---------+ + + + | EGFR | >60 | >60 mL/min | [facility] | | | - | | | LABORATORY | | | AUSTRIAN | | | SERVICES, | | | | | | CORE | | + +---------+ + + + | EGFR NON | >60 | >60 mL/min | [facility] | | | -SARAH | | | LABORATORY | | | RICAN | | | SERVICES, | | | | | | CORE | | + +---------+ + + + | SODIUM, | 136 | 136 - 145 | [facility] | | | PLASMA | | mmol/L | LABORATORY | | | (LAB) | | | SERVICES, | | | | | | CORE | | + +---------+ + + + | POTASSIUM, | 4.3 | 3.4 - 5.0 | [facility] | | | PLASMA | | mmol/L | LABORATORY | | | (LAB) | | | SERVICES, | | | | | | CORE | | + +---------+ + + + | CHLORIDE, | 102 | 97 - 108 mmol/L | [facility] | | | PLASMA | | | LABORATORY | | | (LAB) | | | SERVICES, | | | | | | CORE | | + +---------+ + + + | TOTAL CO2, | 26 | 21 - 32 mmol/L | [facility] | | | PLASMA | | | LABORATORY | | | (LAB) | | | SERVICES, | | | | | | CORE | | + +---------+ + + + | CALCIUM, | 8.7 | 8.6 - 10.2 | [facility] | | | PLASMA | | mg/dL | LABORATORY | | | (LAB) | | | SERVICES, | | | | | | CORE | | + +---------+ + + + | CALCIUM(ALB | 9.1 | 8.6 - 10.2 | [facility] | | | CORRECTED) | | mg/dL | LABORATORY | | | | | | SERVICES, | | | | | | CORE | | + +---------+ + + + | ALBUMIN, | 3.5 | 3.5 - 4.7 g/dL | [facility] | | | PLASMA | | | LABORATORY | | | (LAB) | | | SERVICES, | | | | | | CORE | | + +---------+ + + + | PHOSPHORUS, | 3.6 | 2.4 - 4.7 mg/dL | [facility] | | | PLASMA | | | LABORATORY | | | (LAB) | | | SERVICES, | | | | | | CORE | | + +---------+ + + + | POTASSIUM | No Hemo | | [facility] | | | CMNT | | | LABORATORY | | | | | | SERVICES, | | | | | | CORE | | + +---------+ + + + | ANION GAP | 8 | 4 - 11 mmol/L | [facility] | | | | | | LABORATORY | | | | | | SERVICES, | | | | | | CORE | | + +---------+ + + + | ANION | 9 | 4 - 11 mmol/L | [facility] | | | GAP(ALB | | | LABORATORY | | | CORRECTED) | | | SERVICES, | | | | | | CORE | | + +---------+ + + + + + | Specimen | + + | Blood | + + + + + | Narrative | Performed At | + + + | GFR is estimated using the MDRD equation recommended by the | [facility] | | National Kidney Disease Education Program. Estimated GFR | LABORATORY | | Interpretive Information: <60 mL/min/1.73 sq | SERVICES, CORE | | m Chronic Kidney Disease <15 mL/min/1.73 | | | sq m Kidney Failure Estimated GFR greater | | | that 60 mL/min/1.73 sq m is of limited clinical value. The MDRD | | | equation is not valid in the following situations: - Patients under | | | 18 years of age - Severe malnutrition or obesity - Vegetarian diet | | | - Rapidly changing kidney function - Amputees, paraplegics, or other | | | muscle-wasting diseses | | + + + + + + + + | Performing | Address | City/State/Zipcode | Phone Number | | Organization | | | | + + + + + | [facility] | [address] | [place] [address] | | | SERVICES, CORE | [address] | | | + + + + + INR (02/15/2018 3:33 PM PDT) + + + + + + | Component | Value | Ref Range | Performed | Pathologist | | | | | At | Signature | + + + + + + | INR | 1.46 (H) | 0.90 - 1.20 INR | [facility] | | | | | | LABORATORY | | | | | | SERVICES, | | | | | | CORE | | + + + + + + + + | Specimen | + + | Blood | + + + + + | Narrative | Performed At | + + + | INR Therapeutic ranges for full anticoagulation: INR for | [facility] | | Venous Thromboembolism (2.0 - 3.0) INR INR | LABORATORY | | for most patients with mech. valves (2.5 - 3.5) INR | SERVICES, CORE | + + + + + + + + | Performing | Address | City/State/Zipcode | Phone Number | | Organization | | | | + + + + + | [facility] | [address] | [place] [address] | | | SERVICES, CORE | [address] | | | + + + + + PLATELET MAPPING, POC (02/15/2018) + + + + + + | Component | Value | Ref Range | Performed | Pathologist | | | | | At | Signature | + + + + + + | R - | 6.3 | 5 - 10 Minutes | [facility] - | | | CITRATED | | | [facility] | | | | | | [facility] | | | | | | OF CARE | | | | | | TESTS | | + + + + + + | K - | 1.3 | 1 - 3 Minutes | [facility] - | | | CITRATED | | | [facility] | | | | | | [facility] | | | | | | OF CARE | | | | | | TESTS | | + + + + + + | ANGLE - | 74.9 (A) | 53 - 72 Degrees | [facility] - | | | CITRATED | | | [facility] | | | | | | [facility] | | | | | | OF CARE | | | | | | TESTS | | + + + + + + | MAXIMUM | 70.6 (A) | 55 - 70 mm | [facility] - | | | AMPLITUDE - | | | [facility] | | | CITRATED | | | [facility] | | | | | | OF CARE | | | | | | TESTS | | + + + + + + | LY 30 | 0.5 | 0 - 8 % | [facility] - | | | | | | [facility] | | | | | | [facility] | | | | | | OF CARE | | | | | | TESTS | | + + + + + + | CLOT INDEX | 1.9 | -3 - 3 | [facility] - | | | | | | [facility] | | | | | | [facility] | | | | | | OF CARE | | | | | | TESTS | | + + + + + + | % | 17 | | [facility] - | | | INHIBITION | | | [facility] | | | (AA) | | | [facility] | | | | | | OF CARE | | | | | | TESTS | | + + + + + + | % | 54.2 | | [facility] - | | | INHIBITION | | | [facility] | | | (ADP) | | | [facility] | | | | | | OF CARE | | | | | | TESTS | | + + + + + + + + | Specimen | + + | Blood | + + + + + | Impressions | Performed At | + + + | A standard citrated kaolin TEG with platelet mapping was performed | [facility] - | | R time is normal. Elevated ALPHA angle corresponds to increased | [facility], | | rate of fibrin crosslinking suggesting HYPERcoagulability | POINT OF CARE | | Elevated MA corresponds to increased clot strength suggesting | TESTS | | HYPERcoagulability. Normal LY30 corresponds to normal fibrinolysis | | | Overall, TEG suggests hypercoagulability. There is less than | | | 50% inhibition of platelets along the arachadonic acid pathway There | | | is less than 50% inhibition of platelets along the adenosine | | | diphosphate pathway See Media Tab in Chart Review for TEG with | | | platelet mapping tracing Electronically signed on 02/16/2018 at | | | 7:25 PM TAZ GONZALEZ MD,PhD | | + + + + + + + + | Performing | Address | City/State/Zipcode | Phone Number | | Organization | | | | + + + + + | [facility] | [address] | [place], [place] | | | [facility] | [address] | [address] | | | TESTS | | | | + + + + + CARDIOLOGY (02/15/2018 12:00 AM PDT) + + + | Narrative | Performed At | + + + | | | + + + documented in this encounter Visit Diagnoses + + | Diagnosis | + + | Closed displaced fracture of second cervical vertebra, unspecified fracture | | morphology, initial encounter (HCC) - Primary | + + documented in this encounter Administered Medications + +--------+ + +------+------+ | Medication Order | MAR | Action | Dose | Rate | Site | | | Action | Date | | | | + +--------+ + +------+------+ | acetaminophen (TYLENOL) tablet | Given | 02/23/20 | 1,000 mg | | | | 1,000 mg 1,000 mg, oral, EVERY 8 | | 18 1:10 | | | | | HOURS, First dose on Wed02/15/18 | | PM PDT | | | | | at 2200, Until Discontinued | | | | | | + +--------+ + +------+------+ +-------+ + +---+---+ | Given | 02/23/20 | 1,000 mg | | | | | 18 6:04 | | | | | | AM PDT | | | | +-------+ + +---+---+ | Given | 02/22/20 | 1,000 mg | | | | | 18 9:18 | | | | | | PM PDT | | | | +-------+ + +---+---+ +---+---+ | | | +---+---+ + +---------+ +-----+---+---+ | ceFAZolin (ANCEF) 3 g in NaCl | New Bag | 02/21/20 | 3 g | | | | 0.9 % (NS) IV 3 g, intravenous, | | 18 8:52 | | | | | EVERY 8 HOURS, First dose on Fri | | AM PDT | | | | | 02/18/18 at 1700, Until | | | | | | | Discontinued | | | | | | + +---------+ +-----+---+---+ +---------+ +-----+-------+---+ | New Bag | 02/21/20 | 3 g | 100 | | | | 18 3:05 | | mL/hr | | | | AM PDT | | | | +---------+ +-----+-------+---+ | New Bag | 02/20/20 | 3 g | 100 | | | | 18 7:45 | | mL/hr | | | | PM PDT | | | | +---------+ +-----+-------+---+ +---+---+ | | | +---+---+ + +-------+ +--------+---+---+ | cholecalciferol (Vitamin D3) | Given | 02/23/20 | 2,000 | | | | (VITAMIN D-3) tablet 2,000 Units | | 18 8:01 | Units | | | | 2,000 Units, oral, DAILY, First | | AM PDT | | | | | dose on Nusrat 02/17/18 at 0900, | | | | | | | Until Discontinued | | | | | | + +-------+ +--------+---+---+ +-------+ +--------+---+---+ | Given | 02/22/20 | 2,000 | | | | | 18 8:16 | Units | | | | | AM PDT | | | | +-------+ +--------+---+---+ | Given | 02/21/20 | 2,000 | | | | | 18 8:52 | Units | | | | | AM PDT | | | | +-------+ +--------+---+---+ +---+---+ | | | +---+---+ + +-------+ +--------+---+---+ | cholecalciferol (Vitamin D3) | Given | 02/17/20 | 5,000 | | | | (VITAMIN D-3) tablet 5,000 Units | | 18 9:11 | Units | | | | 5,000 Units, oral, DAILY, First | | AM PDT | | | | | dose on Wed02/16/18 at 0900, | | | | | | | Until Discontinued | | | | | | + +-------+ +--------+---+---+ + +---+ | | | + +---+ | dextrose 50 % in water IV 25 mL | | | 25 mL, intravenous, NEEDED, | | | Starting 02/15/18 at 1753, | | | Until 02/23/18 at 0250, CBG | | | less than 70 mg/dL if patient | | | unable to take PO, per Adult | | | Hypoglycemia Protocol | | + +---+ | | | + +---+ + +-------+ +--------+---+---------+ | enoxaparin (LOVENOX) injection | Given | 02/23/20 | 100 mg | | Abdomen | | 100 mg 100 mg, subcutaneous, | | 18 8:01 | | | | | EVERY 12 HOURS, First dose on Sun | | AM PDT | | | | | 02/20/18 at 0900, Until | | | | | | | Discontinued | | | | | | + +-------+ +--------+---+---------+ +-------+ +--------+---+---------+ | Given | 02/22/20 | 100 mg | | Abdomen | | | 18 9:18 | | | | | | PM PDT | | | | +-------+ +--------+---+---------+ | Given | 02/22/20 | 100 mg | | Abdomen | | | 18 8:15 | | | | | | AM PDT | | | | +-------+ +--------+---+---------+ +---+---+ | | | +---+---+ + +-------+ +-------+---+---------+ | enoxaparin (LOVENOX) injection | Given | 02/20/20 | 40 mg | | Abdomen | | 40 mg 40 mg, subcutaneous, EVERY | | 18 10:00 | | | | | EVENING, 1 dose, First dose on | | PM PDT | | | | | 02/19/18 at 2100 | | | | | | + +-------+ +-------+---+---------+ +---+---+ | | | +---+---+ + +-------+ +--------+---+---+ | fentaNYL (SUBLIMAZE) injection | Given | 02/19/20 | 50 mcg | | | | INTRAPROCEDURE PRN, Starting Tue | | 18 12:35 | | | | | 02/15/18 at 1643, Until Fri | | PM PDT | | | | | 02/18/18 at 1404 | | | | | | + +-------+ +--------+---+---+ +-------+ +---------+---+---+ | Given | 02/19/20 | 50 mcg | | | | | 18 10:30 | | | | | | AM PDT | | | | +-------+ +---------+---+---+ | Given | 02/19/20 | 100 mcg | | | | | 18 7:40 | | | | | | AM PDT | | | | +-------+ +---------+---+---+ +---+---+ | | | +---+---+ + +-------+ +--------+---+---+ | folic acid (FOLVITE) tablet 0.4 | Given | 02/23/20 | 0.4 mg | | | | mg 0.4 mg, oral, DAILY, First | | 18 10:34 | | | | | dose on Wed02/16/18 at 1230, | | AM PDT | | | | | Until Discontinued | | | | | | + +-------+ +--------+---+---+ +-------+ +--------+---+---+ | Given | 02/22/20 | 0.4 mg | | | | | 18 8:15 | | | | | | AM PDT | | | | +-------+ +--------+---+---+ | Given | 02/21/20 | 0.4 mg | | | | | 18 8:52 | | | | | | AM PDT | | | | +-------+ +--------+---+---+ +---+---+ | | | +---+---+ + +-------+ +--------+---+---+ | gabapentin (NEURONTIN) capsule | Given | 02/22/20 | 200 mg | | | | 200 mg 200 mg, oral, AT BEDTIME, | | 18 9:17 | | | | | First dose on Wed02/20/18 at | | PM PDT | | | | | 2200, Until Discontinued | | | | | | + +-------+ +--------+---+---+ +-------+ +--------+---+---+ | Given | 02/21/20 | 200 mg | | | | | 18 9:31 | | | | | | PM PDT | | | | +-------+ +--------+---+---+ + +---+ | | | + +---+ | glucagon (GLUCAGEN) injection 1 | | | mg 1 mg, intramuscular, | | | NEEDED, Starting Wed02/15/18 at | | | 1753, Until Wed02/23/18 at 0250, | | | CBG less than 70 mg/dL per Adult | | | Hypoglycemia Protocol | | + +---+ | | | + +---+ | glucose chewable tablet 16 g | | | 16 g, oral, NEEDED, Starting | | | Tu02/15/18 at 1753, Until Wed | | | 02/23/18 at 0250, CBG less than 70 | | | mg/dL per Adult Hypoglycemia | | | Protocol | | + +---+ | | | + +---+ + +-------+ +-------+---+---+ | hydrALAZINE (APRESOLINE) | Given | 02/20/20 | 10 mg | | | | injection 10 mg 10 mg, | | 18 8:00 | | | | | intravenous, EVERY 4 HOURS | | PM PDT | | | | | NEEDED, Starting Wed02/16/18 at | | | | | | | 1013, Until Wed02/23/18 at 0250, | | | | | | | hypertension, first line | | | | | | + +-------+ +-------+---+---+ +-------+ +-------+---+---+ | Given | 02/19/20 | 10 mg | | | | | 18 10:14 | | | | | | PM PDT | | | | +-------+ +-------+---+---+ | Given | 02/19/20 | 10 mg | | | | | 18 2:29 | | | | | | PM PDT | | | | +-------+ +-------+---+---+ +---+---+ | | | +---+---+ + +-------+ +--------+---+---+ | HYDROmorphone (DILAUDID) | Given | 02/19/20 | 0.3 mg | | | | injection 0.2-0.5 mg 0.2-0.5 mg, | | 18 1:41 | | | | | intravenous, POSTPROCEDURE PRN, | | PM PDT | | | | | Starting 02/18/18 at 1005, | | | | | | | Until 02/18/18 at 1404, | | | | | | | moderate pain while in Phase I | | | | | | | Recovery | | | | | | + +-------+ +--------+---+---+ +-------+ +--------+---+---+ | Given | 02/19/20 | 0.3 mg | | | | | 18 1:30 | | | | | | PM PDT | | | | +-------+ +--------+---+---+ | Given | 02/19/20 | 0.2 mg | | | | | 18 1:15 | | | | | | PM PDT | | | | +-------+ +--------+---+---+ +---+---+ | | | +---+---+ + +-------+ +--------+---+---+ | HYDROmorphone (DILAUDID) | Given | 02/17/20 | 0.5 mg | | | | injection 0.2-0.6 mg 0.2-0.6 mg, | | 18 6:49 | | | | | intravenous, EVERY 4 HOURS | | PM PDT | | | | | NEEDED, Starting 02/15/18 at | | | | | | | 1749, Until Wed02/16/18 at 2047, | | | | | | | severe pain, not controlled by PO | | | | | | | pain medications | | | | | | + +-------+ +--------+---+---+ +-------+ +--------+---+---+ | Given | 02/17/20 | 0.5 mg | | | | | 18 5:13 | | | | | | AM PDT | | | | +-------+ +--------+---+---+ | Given | 02/16/20 | 0.4 mg | | | | | 18 8:00 | | | | | | PM PDT | | | | +-------+ +--------+---+---+ +---+---+ | | | +---+---+ + +-------+ +--------+---+---+ | HYDROmorphone (DILAUDID) | Given | 02/17/20 | 0.6 mg | | | | injection 0.2-0.6 mg 0.2-0.6 mg, | | 18 9:00 | | | | | intravenous, EVERY 2 HOURS | | PM PDT | | | | | NEEDED, Starting Wed02/16/18 at | | | | | | | 2100, Until Wed02/16/18 at 2139, | | | | | | | severe pain, not controlled by PO | | | | | | | pain medications | | | | | | + +-------+ +--------+---+---+ +---+---+ | | | +---+---+ + +-------+ +------+---+---+ | HYDROmorphone (DILAUDID) | Given | 02/21/20 | 1 mg | | | | injection 0.5-1 mg 0.5-1 mg, | | 18 5:15 | | | | | intravenous, EVERY 2 HOURS | | AM PDT | | | | | NEEDED, Starting Wed02/16/18 at | | | | | | | 2138, Until Wed02/22/18 at 0902, | | | | | | | severe pain, not controlled by PO | | | | | | | pain medications | | | | | | + +-------+ +------+---+---+ +-------+ +------+---+---+ | Given | 02/21/20 | 1 mg | | | | | 18 3:13 | | | | | | AM PDT | | | | +-------+ +------+---+---+ | Given | 02/20/20 | 1 mg | | | | | 18 10:06 | | | | | | PM PDT | | | | +-------+ +------+---+---+ +---+---+ | | | +---+---+ + +-------+ +------+---+---+ | HYDROmorphone (DILAUDID) tablet | Given | 02/23/20 | 6 mg | | | | 2-6 mg 2-6 mg, oral, EVERY 3 | | 18 8:24 | | | | | HOURS NEEDED, Starting Tue | | PM PDT | | | | | 02/22/18 at 0902, Until 02/23/18 | | | | | | | at 0250, severe pain | | | | | | + +-------+ +------+---+---+ +-------+ +------+---+---+ | Given | 02/23/20 | 6 mg | | | | | 18 4:45 | | | | | | PM PDT | | | | +-------+ +------+---+---+ | Given | 02/23/20 | 4 mg | | | | | 18 10:44 | | | | | | AM PDT | | | | +-------+ +------+---+---+ +---+---+ | | | +---+---+ + +-------+ + +---+---------+ | insulin glargine (LANTUS) | Given | 02/18/20 | 15 Units | | Abdomen | | injection 15 Units 15 Units, | | 18 10:00 | | | | | subcutaneous, AT BEDTIME, First | | PM PDT | | | | | dose on Wed02/17/18 at 2200, | | | | | | | Until Discontinued | | | | | | + +-------+ + +---+---------+ +---+---+ | | | +---+---+ + +-------+ + +---+---------+ | insulin glargine (LANTUS) | Given | 02/17/20 | 33 Units | | Abdomen | | injection 33 Units 33 Units, | | 18 9:08 | | | | | subcutaneous, AT BEDTIME, First | | PM PDT | | | | | dose on Wed02/15/18 at 2200, | | | | | | | Until Discontinued | | | | | | + +-------+ + +---+---------+ +-------+ + +---+---------+ | Given | 02/16/20 | 33 Units | | Abdomen | | | 18 10:24 | | | | | | PM PDT | | | | +-------+ + +---+---------+ +---+---+ | | | +---+---+ + +-------+ + +---+---------+ | insulin glargine (LANTUS) | Given | 02/22/20 | 33 Units | | Abdomen | | injection 33 Units 33 Units, | | 18 9:18 | | | | | subcutaneous, AT BEDTIME, First | | PM PDT | | | | | dose on Wed02/18/18 at 2200, | | | | | | | Until Discontinued | | | | | | + +-------+ + +---+---------+ +-------+ + +---+ + | Given | 02/21/20 | 33 Units | | Right | | | 18 11:00 | | | Arm | | | PM PDT | | | | +-------+ + +---+ + | Given | 02/20/20 | 33 Units | | Left Arm | | | 18 11:39 | | | | | | PM PDT | | | | +-------+ + +---+ + +---+---+ | | | +---+---+ + +-------+ +---------+---+--------+ | insulin lispro (HUMALOG) | Given | 02/17/20 | 5 Units | | Right | | injection 5 Units 5 Units, | | 18 5:56 | | | Arm | | subcutaneous, THREE TIMES DAILY | | PM PDT | | | | | WITH MEALS, First dose on Wed | | | | | | | 02/16/18 at 0730, Until | | | | | | | Discontinued | | | | | | + +-------+ +---------+---+--------+ +---+---+ | | | +---+---+ + +-------+ +---------+---+---------+ | insulin lispro (HUMALOG) | Given | 02/20/20 | 5 Units | | Abdomen | | injection 5 Units 5 Units, | | 18 8:59 | | | | | subcutaneous, THREE TIMES DAILY | | AM PDT | | | | | WITH MEALS, First dose on Nusrat | | | | | | | 02/17/18 at 0730, Until | | | | | | | Discontinued | | | | | | + +-------+ +---------+---+---------+ +-------+ +---------+---+---------+ | Given | 02/19/20 | 5 Units | | Abdomen | | | 18 5:37 | | | | | | PM PDT | | | | +-------+ +---------+---+---------+ | Given | 02/18/20 | 5 Units | | Right | | | 18 7:17 | | | Arm | | | PM PDT | | | | +-------+ +---------+---+---------+ +---+---+ | | | +---+---+ + +-------+ +---------+---+--------+ | insulin lispro (HUMALOG) | Given | 02/23/20 | 8 Units | | Right | | injection 8 Units 8 Units, | | 18 7:49 | | | Arm | | subcutaneous, THREE TIMES DAILY | | PM PDT | | | | | WITH MEALS, First dose on Sat | | | | | | | 02/19/18 at 1200, Until | | | | | | | Discontinued | | | | | | + +-------+ +---------+---+--------+ +-------+ +---------+---+--------+ | Given | 02/23/20 | 8 Units | | Right | | | 18 1:10 | | | Arm | | | PM PDT | | | | +-------+ +---------+---+--------+ | Given | 02/23/20 | 8 Units | | Right | | | 18 8:00 | | | Arm | | | AM PDT | | | | +-------+ +---------+---+--------+ +---+---+ | | | +---+---+ + +-------+ +---------+---+--------+ | insulin lispro (HUMALOG) | Given | 02/23/20 | 4 Units | | Right | | injection subcutaneous, FOUR | | 18 7:48 | | | Arm | | TIMES DAILY, First dose on Wed | | PM PDT | | | | | 02/15/18 at 2200, Until | | | | | | | Discontinued | | | | | | + +-------+ +---------+---+--------+ +-------+ +---------+---+---------+ | Given | 02/22/20 | 4 Units | | Abdomen | | | 18 9:18 | | | | | | PM PDT | | | | +-------+ +---------+---+---------+ | Given | 02/21/20 | 2 Units | | Right | | | 18 11:00 | | | Arm | | | PM PDT | | | | +-------+ +---------+---+---------+ +---+---+ | | | +---+---+ + +---------+ +-------+---+---+ | iohexol (OMNIPAQUE) 350 mg | IV Push | 02/16/20 | 50 mL | | | | iodine/mL injection 50 mL 50 mL, | | 18 4:12 | | | | | intravenous, PROCEDURE ONCE, 1 | | PM PDT | | | | | dose, 02/15/18 at 1615 | | | | | | + +---------+ +-------+---+---+ +---+---+ | | | +---+---+ + +---------+ + +---+---+ | lactated Ringers IV 1,000 mL, | New Bag | 02/16/20 | 1,000 mL | | | | intravenous, ONCE, 1 dose, Wed | | 18 7:00 | | | | | 02/16/18 at 0000 | | PM PDT | | | | + +---------+ + +---+---+ +---+---+ | | | +---+---+ + + + +-------+-------+---+ | lactated Ringers IV 100 mL/hr, | Rate/Dos | 02/19/20 | 100 | 100 | | | intravenous, CONTINUOUS, | e Verify | 18 5:00 | mL/hr | mL/hr | | | Starting 02/16/18 at 1100, | | AM PDT | | | | | Until 02/19/18 at 0412 | | | | | | + + + +-------+-------+---+ + + +-------+-------+---+ | Rate/Dose Verify | 02/19/20 | 100 | 100 | | | | 18 4:00 | mL/hr | mL/hr | | | | AM PDT | | | | + + +-------+-------+---+ | Rate/Dose Verify | 02/19/20 | 100 | 100 | | | | 18 3:00 | mL/hr | mL/hr | | | | AM PDT | | | | + + +-------+-------+---+ +---+---+ | | | +---+---+ + +-------+ +---------+---+---+ | lactobacillus rhamnosus (GG) | Given | 02/23/20 | 1 | | | | (CULTURELLE) 15 billion cell | | 18 8:01 | capsule | | | | capsule 1 capsule 1 capsule, | | AM PDT | | | | | oral, DAILY, First dose on Sat | | | | | | | 02/19/18 at 1230, Until | | | | | | | Discontinued | | | | | | + +-------+ +---------+---+---+ +-------+ +---------+---+---+ | Given | 02/22/20 | 1 | | | | | 18 8:15 | capsule | | | | | AM PDT | | | | +-------+ +---------+---+---+ | Given | 02/21/20 | 1 | | | | | 18 8:52 | capsule | | | | | AM PDT | | | | +-------+ +---------+---+---+ +---+---+ | | | +---+---+ + +-------+ +--------+---+---+ | levothyroxine tablet 50 mcg 50 | Given | 02/23/20 | 50 mcg | | | | mcg, oral, DAILY, First dose on | | 18 10:34 | | | | | 02/16/18 at 0900, Until | | AM PDT | | | | | Discontinued | | | | | | + +-------+ +--------+---+---+ +-------+ +--------+---+---+ | Given | 02/22/20 | 50 mcg | | | | | 18 8:16 | | | | | | AM PDT | | | | +-------+ +--------+---+---+ | Given | 02/21/20 | 50 mcg | | | | | 18 8:52 | | | | | | AM PDT | | | | +-------+ +--------+---+---+ +---+---+ | | | +---+---+ + +-------+ +-------+---+---+ | morphine ER (MS CONTIN) tablet | Given | 02/21/20 | 30 mg | | | | 30 mg 30 mg, oral, EVERY 12 | | 18 12:17 | | | | | HOURS, First dose on 02/20/18 | | AM PDT | | | | | at 0000, Until Discontinued | | | | | | + +-------+ +-------+---+---+ +---+---+ | | | +---+---+ + +-------+ +-------+---+---+ | morphine ER (MS CONTIN) tablet | Given | 02/23/20 | 60 mg | | | | 60 mg 60 mg, oral, EVERY 12 | | 18 8:01 | | | | | HOURS, First dose on 02/20/18 | | AM PDT | | | | | at 0900, Until Discontinued | | | | | | + +-------+ +-------+---+---+ +-------+ +-------+---+---+ | Given | 02/22/20 | 60 mg | | | | | 18 9:17 | | | | | | PM PDT | | | | +-------+ +-------+---+---+ | Given | 02/22/20 | 60 mg | | | | | 18 8:15 | | | | | | AM PDT | | | | +-------+ +-------+---+---+ +---+---+ | | | +---+---+ + +-------+ + +---+---+ | multivitamin (THERA VITAMIN) 1 | Given | 02/23/20 | 1 tablet | | | | tablet 1 tablet, oral, DAILY, | | 18 8:01 | | | | | First dose on Wed02/16/18 at | | AM PDT | | | | | 0900, Until Discontinued | | | | | | + +-------+ + +---+---+ +-------+ + +---+---+ | Given | 02/22/20 | 1 tablet | | | | | 18 8:16 | | | | | | AM PDT | | | | +-------+ + +---+---+ | Given | 02/21/20 | 1 tablet | | | | | 18 8:52 | | | | | | AM PDT | | | | +-------+ + +---+---+ +---+---+ | | | +---+---+ + +-------+ +------+---+---+ | oxyCODONE (immediate release) | Given | 02/17/20 | 5 mg | | | | (ROXICODONE) tablet 2.5-5 mg | | 18 9:30 | | | | | 2.5-5 mg, oral, EVERY 4 HOURS | | PM PDT | | | | | NEEDED, Starting Tu02/15/18 at | | | | | | | 1749, Until Wed02/16/18 at 2139, | | | | | | | moderate pain | | | | | | + +-------+ +------+---+---+ +-------+ +------+---+---+ | Given | 02/17/20 | 5 mg | | | | | 18 5:59 | | | | | | PM PDT | | | | +-------+ +------+---+---+ | Given | 02/17/20 | 5 mg | | | | | 18 1:28 | | | | | | PM PDT | | | | +-------+ +------+---+---+ +---+---+ | | | +---+---+ + +-------+ +-------+---+---+ | oxyCODONE (immediate release) | Given | 02/23/20 | 15 mg | | | | (ROXICODONE) tablet 5-15 mg 5-15 | | 18 6:04 | | | | | mg, oral, EVERY 3 HOURS | | AM PDT | | | | | NEEDED, Starting Wed02/16/18 at | | | | | | | 2145, Until Wed02/22/18 at 0902, | | | | | | | moderate pain | | | | | | + +-------+ +-------+---+---+ +-------+ +-------+---+---+ | Given | 02/23/20 | 15 mg | | | | | 18 2:10 | | | | | | AM PDT | | | | +-------+ +-------+---+---+ | Given | 02/22/20 | 15 mg | | | | | 18 3:28 | | | | | | PM PDT | | | | +-------+ +-------+---+---+ +---+---+ | | | +---+---+ + +-------+ +------+---+---+ | polyethylene glycol (MIRALAX) | Given | 02/22/20 | 17 g | | | | packet 17 g 17 g, oral, EVERY | | 18 9:17 | | | | | EVENING, First dose on Wed | | PM PDT | | | | | 02/15/18 at 2100, Until | | | | | | | Discontinued | | | | | | + +-------+ +------+---+---+ +-------+ +------+---+---+ | Given | 02/21/20 | 17 g | | | | | 18 9:32 | | | | | | PM PDT | | | | +-------+ +------+---+---+ | Given | 02/19/20 | 17 g | | | | | 18 9:37 | | | | | | PM PDT | | | | +-------+ +------+---+---+ +---+---+ | | | +---+---+ + +-------+ +--------+---+---+ | potassium & sodium phosphates | Given | 02/18/20 | 500 mg | | | | (K PHOS NEUTRAL) tablet 500 mg | | 18 5:27 | | | | | 500 mg, oral, ONCE, 1 dose, Nusrat | | AM PDT | | | | | 02/17/18 at 0345 | | | | | | + +-------+ +--------+---+---+ +---+---+ | | | +---+---+ + +-------+ +--------+---+---+ | potassium chloride SR (K-DUR) | Given | 02/17/20 | 20 mEq | | | | tablet 20 mEq 20 mEq, oral, | | 18 5:13 | | | | | ONCE, 1 dose, 02/16/18 at 0530 | | AM PDT | | | | + +-------+ +--------+---+---+ +---+---+ | | | +---+---+ + +---------+ +---------+---+---+ | potassium phosphate IV 15 mmol | New Bag | 02/18/20 | 15 mmol | | | | 15 mmol, intravenous, ONCE, 1 | | 18 11:44 | | | | | dose, [facility] 02/17/18 at 1045 | | AM PDT | | | | + +---------+ +---------+---+---+ +---+---+ | | | +---+---+ + +-------+ +---------+---+---+ | potassium, sodium phosphates | Given | 02/17/20 | 2 | | | | (NEUTRA-PHOS, PHOS-NAK) | | 18 5:13 | packets | | | | 280-160-250 mg packet 2 packet 2 | | AM PDT | | | | | packet, oral, ONCE, 1 dose, Wed | | | | | | | 02/16/18 at 0530 | | | | | | + +-------+ +---------+---+---+ +---+---+ | | | +---+---+ + +-------+ +---------+---+---+ | potassium, sodium phosphates | Given | 02/18/20 | 2 | | | | (NEUTRA-PHOS, PHOS-NAK) | | 18 5:28 | packets | | | | 280-160-250 mg packet 2 packet 2 | | AM PDT | | | | | packet, oral, ONCE, 1 dose, Nusrat | | | | | | | 02/17/18 at 0345 | | | | | | + +-------+ +---------+---+---+ +---+---+ | | | +---+---+ + +-------+ +-------+---+---+ | prochlorperazine (COMPAZINE) | Given | 02/18/20 | 10 mg | | | | tablet 5-10 mg 5-10 mg, oral, | | 18 5:28 | | | | | EVERY 6 HOURS NEEDED, Starting | | AM PDT | | | | | Wed02/15/18 at 1752, Until Wed | | | | | | | 02/23/18 at 0250, nausea/vomiting, | | | | | | | second line | | | | | | + +-------+ +-------+---+---+ +---+---+ | | | +---+---+ + +-------+ +---------+---+---+ | senna (SENOKOT) tablet 2 tablet | Given | 02/23/20 | 2 | | | | 2 tablet, oral, TWICE DAILY, | | 18 8:01 | tablets | | | | First dose on Wed02/15/18 at | | AM PDT | | | | | 2100, Until Discontinued | | | | | | + +-------+ +---------+---+---+ +-------+ +---------+---+---+ | Given | 02/22/20 | 2 | | | | | 18 9:18 | tablets | | | | | PM PDT | | | | +-------+ +---------+---+---+ | Given | 02/22/20 | 2 | | | | | 18 8:16 | tablets | | | | | AM PDT | | | | +-------+ +---------+---+---+ +---+---+ | | | +---+---+ + +-------+ +-------+---+---+ | simethicone chew (MYLICON) | Given | 02/22/20 | 80 mg | | | | tablet 80 mg 80 mg, oral, THREE | | 18 12:02 | | | | | TIMES DAILY NEEDED, Starting | | AM PDT | | | | | 02/20/18 at 2311, Until Wed | | | | | | | 02/23/18 at 0250, bloating | | | | | | + +-------+ +-------+---+---+ +---+---+ | | | +---+---+ documented in this encounter
--- OUTSIDE RECORDS SUMMARY | ~2019-01-28 | XMS | Encounter Summary ---
Demographics + + + | Address | [address] | | | [place] [address] | + + + | Home Phone | | + + + | Preferred Language | Unknown | + + + | Marital Status | Single | + + + | Taoism Affiliation | BAP | + + + | Race | or | + + + | Ethnic Group | Not or | + + + Author + + + | Author | [facility] | + + + | Organization | [facility] | + + + | [...] Team Providers + +------+ + | Care Railroader Name | Role | Phone | + +------+ + | Gracie Mariano MD | PCP | Unavailable | + +------+ + Reason for Visit + + + | Reason | Comments | + + + | Erroneous Encounter | | | - Disregard | | + + + Encounter Details +--------+ + + + + | Date | Type | Department | Care Team | Description | +--------+ + + + + | 09/14/ | [facility] Operator | Dig[facility]ive [facility] | Harinder Felton, | | | 2013 | | Center at [facility] [address] | [address] | | | | | [place] | [place] [address] | | | | | Mailcode: [place] | [phone] | | | | | [facility] | | | | | | Healing, [facility] [address] | | | | | | [place], [place] | | | | | | [address] | | | | | | [phone] | | | +--------+ + + + [...] Visit Diagnoses Not on filedocumented in this encounter"
--- OUTSIDE RECORDS SUMMARY | ~2019-01-28 | XMS | Encounter Summary ---
Demographics + + + | Address | [address] | | | [place] [address] | + + + | Home Phone | | + + + | Preferred Language | Unknown | + + + | Marital Status | Single | + + + | Uatsdin Affiliation | BAP | + + + | Race | or | + + + | Ethnic Group | Not or | + + + Author + + + | Author | [facility] | + + + | Organization | [facility] | + + + | [...] Team Providers + +------+ + | Care Heating Fixture Tender Name | Role | Phone | + +------+ + | Gracie Mariano MD | PCP | Unavailable | + +------+ + Encounter Details +--------+ + + + + | Date | Type | Department | Care Team | Description | +--------+ + + + + | 04/28/ | Hospital | Cardiac | [facility] | | | 2011 | Encounter | Non-Invasive Testing | [address] | | | | | at [facility] | [facility] | | | | | [address] | [place] [address] | | | | | [facility] | | | | | | Mailcode: [id number] | | | | | | [place] | | | | | | [facility], | | | | | | [place] [address] | | | | | | [phone] | | | +--------+ + + + + Social History + + + +--------+------+ | Tobacco Use | Types | Packs/Day | Years | Date | | | | | Used | | + + + +--------+------+ | Former Smoker | Cigarettes | 0.5 | 2 | | + + + +--------+------+ + +---+---+---+ | Smokeless Tobacco: | | | | | Never Used | | | | + +---+---+---+ + + | Comments: He quit in 1982 | + + + + +---------+ + [...] + + documented as of this encounter Medications at Time of Discharge + + + +---------+--------+ + | Medication | Sig | Dispensed | Refills | Start | End Date | | | | | | Date | | + + + +---------+--------+ + | MEDICAL MARIJUANA | once daily. 3 grams | | 0 | | | | | per day | | | | | + + + +---------+--------+ + documented as of this encounter Plan of Treatment Not on filedocumented as of this encounter Procedures + +--------+ + + + | Procedure Name | Priori | Date/Time | Associated Diagnosis | Comments | | | ty | | | | + +--------+ + + + | 12 LEAD ECG | Routin | 04/28/2012 | Preop examination | Results for this | | | e | 4:57 PM | | procedure are in the | | | | PDT | | results section. | + +--------+ + + + | LUPUS INHIBITOR | Routin | 04/28/2012 | | Results for this | | EVALUATION WITH | e | 4:31 PM | | procedure are in the | | REFLEXES | | PDT | | results section. | + +--------+ + + + documented in this encounter Results LUPUS INHIBITOR EVALUATION, PLASMA (04/28/2012 4:31 PM PDT) + + + + + + | Component | Value | Ref Range | Performed | Pathologist | | | | | At | Signature | + + + + + + | LUPUS | Quantity not Sufficient | | [facility] | | | INHIBITOR | for test. | | DEPARTMENT | | | EVAL - | | | OF | | | HEADER | | | PATHOLOGY | | + + + + + + + + | Specimen | + + | | + + + + + | Narrative | Performed At | + + + | Lupus Inhibitor Panel Lupus anticoagulants (LAC) are | [facility] | | evaluated using a multi-test panel with different phospholipids. If | DEPARTMENT OF | | one of the screening assays is positive, a confirmatory assay is | PATHOLOGY | | performed (DVV Confirm or Hexagonal APTT). The LAC is present when | | | one or both of the confirmatory assays are positive. Levels of | | | unfractionated heparin >1.0 U/mL may give elevated results. LMWH | | | >0.25 U/mL interfere with the assay. Coumadin may prolong the DVV | | | but does not affect the Hexagonal APTT. | | + + + + + + + + | Performing | Address | City/State/Zipcode | Phone Number | | Organization | | | | + + + + + | [facility] | [address] | [place] [address] | | | PATHOLOGY | [address] | | | + + + + + documented in this encounter Visit Diagnoses Not on filedocumented in this encounter"
--- OUTSIDE RECORDS SUMMARY | ~2019-01-28 | XMS | Encounter Summary ---
Demographics + + + | Address | [address] | | | [place] [address] | + + + | Home Phone [...] Author + + + | Author | [facility] | + + + | Organization | [facility] | + + + | Address | [...] Team Providers + +------+ + | Care Waste Machine Tender Name | Role | Phone | + +------+ + | Gracie Mariano MD | PCP | Unavailable | + +------+ + Encounter Details +--------+ + + + + | Date | Type | Department | Care Team | Description | +--------+ + + + + | 05/06/ | [address] Reporter | Orthopaedics at | [facility] [place], | | | 2011 | | [facility] [address] | [facility] | | | | | [facility] | | | | | | Mailcode: [id number] | | | | | | [place] | | | | | | [place], [place] | | | | | | [address] | | | | | | [phone] | | | +--------+ + + + [...] + + | Comments: He quit in 1981 | + + + + +---------+ + [...]
--- OUTSIDE RECORDS SUMMARY | ~2019-01-28 | XMS | Encounter Summary ---
Demographics + + + | Address | [address] | | | [place] [address] | + + + | Home Phone | | + + + | Preferred Language | Unknown | + + + | Marital Status | Single | + + + | Restoration Affiliation | BAP | + + + | Race | or | + + + | Ethnic Group | Not or | + + + Author + + + | Author | [facility] | + + + | Organization | [facility] | + + + | Address [...] Team Providers + +------+ + | Care Drafter Directional Survey Name | Role | Phone | + [...] | +--------+ + + + + | 03/12/ | Anesthesia | 6A Intra Op [facility] | Karyna Reina MD | | | 2013 | Event | [facility] | [address] [facility] | | | | | Admitting Desk | [facility] | | | | | Located on the 9 | [place], [place] | | | | | [address] | [address] | | | | | [facility] | [phone] | | | | | [place], [place] | | | | | | [address] | | | +--------+ + + + + Anesthesia Record + + + + + | Procedure Name | Responsible | Anesthesia Start | Anesthesia Stop Time | | | Anesthesiologist | Time | | + + + + + | TOTAL HIP | Bella Lion MD | 03/12/14 0829 | 03/12/14 1119 | | ARTHROPLASTY (Right | | | | | Hip) | | | | + + + [...] /2 | 8 | | | | 1/ | 2 | | | | 20 | 9 | | | | 14 | | | | +----+---+ + + | | 0 | Pt. Check | Prior to anesthesia start, pt. Identified, examined, chart | | | 8 | | reviewed, PARQ held, anesthetic plan made or approved by | | | 2 | | attending anesthesiologist. NPO status confirmed as appropriate | | | 9 | | for procedure Preoperative evaluation: unchanged | +----+---+ + + | | 0 | An Start | | | | 8 | | | | | 2 | | | | | 9 | | | +----+---+ + + | | 0 | An Start | | | | 8 | Data | | | | 2 | | | | | 9 | | | +----+---+ + + | | 0 | Std. Airway | | | | 8 | Mgt. | | | | 4 | | | | | 2 | | | +----+---+ + + | | 0 | Ready | | | | 8 | | | | | 4 | | | | | 7 | | | +----+---+ + + | | 0 | Quick Note | Small test dose of Ancef given due to allergy to PCN. No hives, | | | 9 | | edema, anaphylaxis noted. | | | 1 | | | | | 2 | | | +----+---+ + + | | 0 | Abx | | | | 9 | Administere | | | | 1 | d | | | | 4 | | | +----+---+ + + | | 0 | Quick Note | Surgeon requests paralytics | | | 9 | | | | | 1 | | | | | 6 | | | +----+---+ + + | | 0 | Incision | | | | 9 | | | | | 1 | | | | | 9 | | | +----+---+ + + | | 0 | Quick Note | Cell saver in room if necessary | | | 9 | | | | | 2 | | | | | 3 | | | +----+---+ + + | | 1 | Quick Note | CBG 136 | | | 0 | | | | | 2 | | | | | 6 | | | +----+---+ + + | | 1 | Surgery end | | | | 0 | | | | | 5 | | | | | 5 | | | +----+---+ + + | | 1 | An Extubate | Neuromuscular function Intact. Pharynx suctioned. Patient obeys | | | 1 | | commands. Adequate pulmonary mechanics. | | | 1 | | | | | 3 | | | +----+---+ + + | | 1 | an stop | | | | 1 | data | | | | 1 | | | | | 3 | | | +----+---+ + + | | 1 | Anesthesia | | | | 1 | End | | | | 1 | | | | | 9 | | | +----+---+ + + +------+ | Meds | +------+ + + + | Name | Total | + + + | midazolam | 2 mg | + + + | lidocaine 2% | 80 mg | + + + | propofol | 160 mg | + + + | rocuronium | 100 mg | + + + | fentaNYL | 500 mcg | + + + | HYDROmorphone | 2 mg | + + + | neostigmine | 4 mg | + + + | glycopyrrolate | 0.6 mg | + + + | ondansetron | 4 mg | + + + | ceFAZolin (ANCEF) injection 1 g | 2 g | + + + | acetaminophen PO | 1,000 mg | + + + | gabapentin | 600 mg | + + + | ketamine | 60 mg | + + + | ePHEDrine | 1 mg | + + + | hydrALAZINE | 10 mg | + + + | PHENYLephrine | 300 mcg | + + + | labetalol | 10 mg | + + + | LR | 1,100 mL | + + + | NS | 1,000 mL | + + + + + | Name | + + | O2 FR Avance (Total Liters) | + + | Air FR Avance (l/min) | + + | Insp Abner | + + | Et Abner | + + | Insp Sevo | + + | Et Sevo | + + | EtN2O % | + + | Insp N2O % | + + + + | No blood administrations on file. | + + +--------+ + + + | Type | Details | Placement | Removal | +--------+ + + + | RETIRE | 03/13/13; 0841; 06/10/17 | 03/13/13 0841 by | 06/10/17 1622 by | | D - | (Automatic cleanup per RA | Williams Knight, | Discontinued After | | Periph | 3006--contact admin for | SUPERVISOR AUDIT [employer]ERKS | Discharge | | eral | questions.); 1622 (Automatic | | | | Line | cleanup per RA 3006--contact | | | | | admin for questions.); No; 16; | | | | | Right; Hand; None; No; Positive | | | +--------+ + + + | RETIRE | 03/13/13; 0915; No; midline; | 03/13/13 0915 by | 06/10/17 1622 by | | D - | abdomen; [...] +--------+ + + + | RETIRE | 03/12/14; SURGERY; No; Right:, | 03/12/14 0000 by | 06/10/17 1622 by | | D - | lateral; hip; 06/10/17 (Automatic | Nancy Johnson RN | Discontinued After | | Incisi | cleanup per RA 3006--contact | | Discharge | | on | admin for questions.); 1622 | | | | | (Automatic cleanup per RA | | | | | 3006--contact admin for | | | | | questions.) | | | +--------+ + + + | RETIRE | 03/12/14; 06/10/17 (Automatic | 03/12/14 0000 by | 06/10/17 1622 by | | D - | cleanup per RA 3006--contact | Nancy Johnson RN | Discontinued After | | Drains | admin for questions.); 1622 | | Discharge | | | (Automatic cleanup per RA | | | | (wound | 3006--contact admin for | | | | s/surg | questions.); No; SURGICAL | | | | ical) | INCISION SKIN VAC HANNA; 10mm x | | | | | 30mm; Other (Comment); Right; Hip | | | +--------+ + + + | RETIRE | 03/12/14; 36; 03/14/14; 950; | 03/12/14735 by | 03/14/14950 by | | D - | 20; Left; Forearm; None; | Elisabet Sheth, | Hans Tejada RN | | Periph | Positive; Site Problems | RN | | | eral | | | | | Line | | | | +--------+ + + + | RETIRE | 03/12/14; 0840; 03/13/14; 1025; | 03/12/14 0840 by | 03/13/14 1025 by | | D - | URINARY; Mo; 16FR; (clear | Nancy Johnson RN | Renetta Cook | | Urinar | yellow urine returned from | | | | y Cath | bladder per Flo Johnson RN) | | | | | | | [...] | acetaminophen (TYLENOL) tablet | Given | 03/12/20 | 1,000 mg | | | | INTRAPROCEDURE PRN, Starting Mon | | 14 8:28 | | | | | 03/12/14 at 0828, Until Mon | | AM PDT | | | | | 03/12/14 at 1113 | | | | | | + +--------+ + +------+------+ +---+---+ | | | +---+---+ + +-------+ +-----+---+---+ | ceFAZolin (ANCEF) injection 1 g | Given | 03/12/20 | 2 g | | | | 1 g, intravenous, PREPROCEDURE | | 14 9:14 | | | | | ONCE, 1 dose, Starting Mon | | AM PDT | | | | | 03/12/14 at 0651, Until Mon | | | | | | | 03/12/14 at 0914 | | | | | | + +-------+ +-----+---+---+ +---+---+ | | | +---+---+ + +-------+ +------+---+---+ | ePHEDrine injection | Given | 03/12/20 | 1 mg | | | | intravenous, INTRAPROCEDURE PRN, | | 14 9:00 | | | | | Starting Wed03/12/14 at 0900, | | AM PDT | | | | | Until Wed03/12/14 at 1113 | | | | | | + +-------+ +------+---+---+ +---+---+ | | | +---+---+ + +-------+ +---------+---+---+ | fentaNYL citrate (PF) | Given | 03/12/20 | 100 mcg | | | | (SUBLIMAZE) injection | | 14 9:35 | | | | | INTRAPROCEDURE PRN, Starting Mon | | AM PDT | | | | | 03/12/14 at 0841, Until Mon | | | | | | | 03/12/14 at 1113, sedation | | | | | | + +-------+ +---------+---+---+ +-------+ +---------+---+---+ | Given | 03/12/20 | 100 mcg | | | | | 14 9:28 | | | | | | AM PDT | | | | +-------+ +---------+---+---+ | Given | 03/12/20 | 50 mcg | | | | | 14 8:41 | | | | | | AM PDT | | | | +-------+ +---------+---+---+ +---+---+ | | | +---+---+ + +-------+ +--------+---+---+ | gabapentin (NEURONTIN) capsule | Given | 03/12/20 | 600 mg | | | | INTRAPROCEDURE PRN, Starting Mon | | 14 8:28 | | | | | 03/12/14 at 0828, Until Mon | | AM PDT | | | | | 03/12/14 at 1113 | | | | | | + +-------+ +--------+---+---+ +---+---+ | | | +---+---+ + +-------+ +--------+---+---+ | glycopyrrolate (ROBINUL) | Given | 03/12/20 | 0.6 mg | | | | injection INTRAPROCEDURE PRN, | | 14 10:30 | | | | | Starting 03/12/14 at 1030, | | AM PDT | | | | | Until 03/12/14 at 1113 | | | | | | + +-------+ +--------+---+---+ +---+---+ | | | +---+---+ + +-------+ +-------+---+---+ | hydrALAZINE (APRESOLINE) | Given | 03/12/20 | 10 mg | | | | injection intravenous, | | 14 10:03 | | | | | INTRAPROCEDURE PRN, Starting Mon | | AM PDT | | | | | 03/12/14 at 1003, Until Mon | | | | | | | 03/12/14 at 1113 | | | | | | + +-------+ +-------+---+---+ +---+---+ | | | +---+---+ + +-------+ +--------+---+---+ | HYDROmorphone (DILAUDID) | Given | 03/12/20 | 0.4 mg | | | | injection INTRAPROCEDURE PRN, | | 14 10:37 | | | | | Starting 03/12/14 at 0939, | | AM PDT | | | | | Until 03/12/14 at 1113, | | | | | | | sedation | | | | | | + +-------+ +--------+---+---+ +-------+ +--------+---+---+ | Given | 03/12/20 | 0.6 mg | | | | | 14 10:20 | | | | | | AM PDT | | | | +-------+ +--------+---+---+ | Given | 03/12/20 | 1 mg | | | | | 14 9:39 | | | | | | AM PDT | | | | +-------+ +--------+---+---+ +---+---+ | | | +---+---+ + +-------+ +-------+---+---+ | ketamine (KETALAR) injection | Given | 03/12/20 | 60 mg | | | | INTRAPROCEDURE PRN, Starting Mon | | 14 8:47 | | | | | 03/12/14 at 0847, Until Mon | | AM PDT | | | | | 03/12/14 at 1113, sedation | | | | | | + +-------+ +-------+---+---+ +---+---+ | | | +---+---+ + +-------+ +-------+---+---+ | labetalol (TRANDATE) IV | Given | 03/12/20 | 10 mg | | | | injection intravenous, | | 14 11:06 | | | | | INTRAPROCEDURE PRN, Starting Mon | | AM PDT | | | | | 03/12/14 at 1106, Until Mon | | | | | | | 03/12/14 at 1113 | | | | | | + +-------+ +-------+---+---+ +---+---+ | | | +---+---+ + + + +---+---+---+ | lactated ringers IV | given by | 03/12/20 | | | | | INTRAPROCEDURE CONTINUOUS PRN, | | 14 10:54 | | | | | Starting Wed03/12/14 at 0829, | anesthes | AM PDT | | | | | Until Wed03/12/14 at 1113 | iology | | | | | + + + +---+---+---+ + + +---+---+---+ | given by anesthesiology | 03/12/20 | | | | | | 14 9:25 | | | | | | AM PDT | | | | + + +---+---+---+ | given by anesthesiology | 03/12/20 | | | | | | 14 9:05 | | | | | | AM PDT | | | | + + +---+---+---+ +---+---+ | | | +---+---+ + +-------+ +-------+---+---+ | lidocaine PF (XYLOCAINE MPF) 20 | Given | 03/12/20 | 80 mg | | | | mg/mL (2 %) injection | | 14 8:37 | | | | | INTRAPROCEDURE PRN, Starting Mon | | AM PDT | | | | | 03/12/14 at 0837, Until Mon | | | | | | | 03/12/14 at 1113 | | | | | | + +-------+ +-------+---+---+ +---+---+ | | | +---+---+ + +-------+ +------+---+---+ | midazolam (VERSED) injection | Given | 03/12/20 | 2 mg | | | | INTRAPROCEDURE PRN, Starting Mon | | 14 8:22 | | | | | 03/12/14 at 0822, Until Mon | | AM PDT | | | | | 03/12/14 at 1113, sedation | | | | | | + +-------+ +------+---+---+ +---+---+ | | | +---+---+ + + + +---+---+---+ | NaCl 0.9 % IV INTRAPROCEDURE | given by | 03/12/20 | | | | | CONTINUOUS PRN, Starting Mon | | 14 9:25 | | | | | 03/12/14 at 0851, Until Mon | anesthes | AM PDT | | | | | 03/12/14 at 1113 | iology | | | | | + + + +---+---+---+ +---------+ +---+---+---+ | New Bag | 03/12/20 | | | | | | 14 8:51 | | | | | | AM PDT | | | | +---------+ +---+---+---+ +---+---+ | | | +---+---+ + +-------+ +------+---+---+ | neostigmine (PROSTIGMIN) | Given | 03/12/20 | 4 mg | | | | injection intravenous, | | 14 10:30 | | | | | INTRAPROCEDURE PRN, Starting Mon | | AM PDT | | | | | 03/12/14 at 1030, Until Mon | | | | | | | 03/12/14 at 1113 | | | | | | + +-------+ +------+---+---+ +---+---+ | | | +---+---+ + +-------+ +------+---+---+ | ondansetron (ZOFRAN) injection | Given | 03/12/20 | 4 mg | | | | INTRAPROCEDURE PRN, Starting Mon | | 14 10:30 | | | | | 03/12/14 at 1030, Until Mon | | AM PDT | | | | | 03/12/14 at 1113 | | | | | | + +-------+ +------+---+---+ +---+---+ | | | +---+---+ + +-------+ +---------+---+---+ | PHENYLEPHrine 100 mcg/mL | Given | 03/12/20 | 200 mcg | | | | injection (OR syringe) | | 14 10:45 | | | | | INTRAPROCEDURE PRN, Starting Mon | | AM PDT | | | | | 03/12/14 at 1045, Until Mon | | | | | | | 03/12/14 at 1113 | | | | | | + +-------+ +---------+---+---+ +-------+ +---------+---+---+ | Given | 03/12/20 | 100 mcg | | | | | 14 10:38 | | | | | | AM PDT | | | | +-------+ +---------+---+---+ +---+---+ | | | +---+---+ + +-------+ +--------+---+---+ | propofol INTRAPROCEDURE PRN, | Given | 03/12/20 | 160 mg | | | | Starting 03/12/14 at 0837, | | 14 8:37 | | | | | Until Wed03/12/14 at 1113 | | AM PDT | | | | + +-------+ +--------+---+---+ +---+---+ | | | +---+---+ + +-------+ +-------+---+---+ | rocuronium (ZEMURON) injection | Given | 03/12/20 | 50 mg | | | | INTRAPROCEDURE PRN, Starting Mon | | 14 9:18 | | | | | 03/12/14 at 0839, Until Mon | | AM PDT | | | | | 03/12/14 at 1113, Neuromuscular | | | | | | | block | | | | | | + +-------+ +-------+---+---+ +-------+ +-------+---+---+ | Given | 03/12/20 | 50 mg | | | | | 14 8:39 | | | | | | AM PDT | | | | +-------+ +-------+---+---+ +---+---+ | | | +---+---+ documented in this encounter"
--- OUTSIDE RECORDS SUMMARY | ~2019-01-28 | XMS | Encounter Summary ---
Demographics + + + | Address | [address] | | | [place] [address] | + + + | Home Phone | | + + + | Preferred Language | Unknown | + + + | Marital Status | Single | + + + | Rastafarian Affiliation | BAP | + + + | Race | or | + + + | Ethnic Group | Not or | + + + Author + + + | Author | [facility] | + + + | Organization | [facility] | + + + | Address | [...] Team Providers + +------+ + | Care Second Crusher Name | Role | Phone | + +------+ + | Gracie Mariano MD | PCP | Unavailable | + +------+ + Reason for Visit Consultation (Routine) +--------+--------+ + + + + | Status | Reason | Specialty | Diagnoses / | Referred By | Referred To | | | | | Procedures | Contact | Contact | +--------+--------+ + + + + | Closed | | Rheumatology | Diagnoses | [facility] | [facility] | | | | | Ankylosing | MD Harinder | [facility] [address] | | | | | spondylitis | [address] | | | | | ([facility]LY [facility]) | [address] | [address] | | | | | Procedures | [place], Mailcode: | | | | | CONSULT TO | [place] [address] | OP09 | | | | | RHEUMATOLOGY | Phone: | Physicians | | | | | | [phone] | [address] | | | | | | Fax: | Floor | | | | | | [phone] | [place], [place] | | | | | | | [address] | | | | | | | Phone: | | | | | | | [phone] | | | | | | | Fax: | | | | | | | [phone] | +--------+--------+ + + + + Encounter Details +--------+---------+ + + + | Date | Type | Department | Care Team | Description | +--------+---------+ + + + | 05/16/ | Office | Rheumatology at | Yulisa Hearn, | (ankylosing | | 2012 | Visit | [facility] | [address] | spondylitis) ([facility]) | | | | [address] [facility] | [address] | (Primary Dx) | | | | [facility] [address] | [place] [address] | | | | | Mailcode: [place] | [phone] | | | | | [facility] | | | | | | [place], [place] | | | | | | [address] | | | | | | [phone] | | | +--------+---------+ + + + [...] + + + | Blood Pressure | 142/78 | 05/16/2013 10:13 AM | | | | | PDT | | + + + + + | Pulse | 68 | 05/16/2013 10:13 AM | | | | | PDT [...] + + + + | Weight | 113.9 kg (251 lb) | 05/16/2013 10:13 AM | | | | | PDT | | + + + + + | Height | 168.9 cm (5' 6.5") | 05/16/2013 10:13 AM | | | | | PDT | | + + + + + | Body Mass Index | 39.91 | 05/16/2013 10:13 AM | | | | | PDT | | + + + + + documented in this encounter Progress Notes Ray Arredondo MD - 05/19/2013 4:43 PM PDTI performed a history and physical examination of the patient and discussed his management with the fellow. I reviewed the fellow's note and agree with the documented findings and plan of care. RAY ARREDONDO MD ([facility]) RHEUMATOLOGY FACULTY [address] [place] [address] Yulisa Winchester MD - 05/16/2013 10:25 AM PDT RHEUMATOLOGY NEW PATIENT CONSULT This consultation was requested by: Harinder Felton MD [address] [place] [address] fax: [phone] CC: No chief complaint on file. HPI: This is a 62 y.o. male, here for consultation from Harinder Felton MD regarding diagnos is, and possible change in therapy for ankilosing spondylitis. Mr Cisneros is a 62 yo man who holds a long standing diagnosis of . He was di agnosed in late 70' in [place] by his PCP, but was never referred to rheumatology or treat ed. He states that his symptoms started when he was 17 yo with low back pain, worse in the m orning and associated with morning stiffness and by the time he turned 20, he already had ne ck pain and stiffness. He only managed his symptoms over the years with NSAIDs, until he was placed on ACO with coumadin for APLS diagnosed in 2010. 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 H is hypercoagulable work-up revealed at that time positive LA, ACL Ig A and he was started on lifelong ACO with coumadin. He became completely ankilosed over the last 2 years, not being able to sit or bend. He use s a lifting chair which tilts in order to sleep as he can not flex his hips. He had a L SUSHIL on 05/05 and he is supposed to have a R SUSHIL and L TKA in the near future. His neck is also an kylosed with stooped posture and no ROM. His pelvis xray done in 2011 shows B/L SI joints ankylosis, pubic simphysis ankylosis and l umbar spine syndesmophytes He never had peripheral arthritis, no skin psoriasis, no h/o enthesitis, no red or painful eyes, no dactylitis Currently denies chest pain, SOB, constitutional symptoms, no h/o IBD, no dysuria or hematu torri. Currently his pain level is 8 and he manages it with oral morphine ROS: More then 10 point review of symptoms performed, pertinent as above. For full ROS plea se refer to patient queationnaire scanned in epic PMH: Past Medical History Diagnosis Date Diabetes mellitus [...] reflux disease) Seizure disorder Unspecified hemorrhagic conditions PSH: Past Surgical History Procedure Laterality Date Colectomy 2003 partial, for diverticulitis Rotator cuff repair 1997 Left total hip arthroplasty with complexity modifier, incisional wound vac 05/09/2012 Meds: Current Outpatient Prescriptions Medication Sig acetaminophen 650 mg Oral tablet Take 1 Tab by mouth every six hours. allopurinol 100 mg Oral tablet Take 100 mg by mouth once daily. Cholecalciferol, Vitamin D3, 5,000 unit Oral capsule Take 5,000 Units by mouth once cy ly. clotrimazole 1 % Topical Cream Apply to affected area two times daily. Apply to affect ed area for 7 consecutive days. glipiZIDE 5 mg Oral tablet Take 5 mg by mouth two times daily. levothyroxine 50 mcg Oral tablet Take 50 mcg by mouth once daily. lisinopril 10 mg Oral tablet Take 10 mg by mouth once daily. MEDICAL MARIJUANA once daily. 3 grams per day metoprolol tartrate 25 mg Oral tablet Take 25 mg by mouth two times daily. morphine 15 mg Oral tablet Take 1-2 Tabs by mouth every three hours as needed for sever e pain. morphine 15 mg Oral tablet Take 1 Tab by mouth every four hours as needed for severe pa in. morphine ER 60 mg Oral tablet extended release Take 1 Tab by mouth every twelve hours. multivitamin Oral capsule Take 1 Cap by mouth once daily. polyethylene glycol 17 gram/dose Oral Powder Take 17 g by mouth once daily. senna-docusate 8.6-50 mg Oral tablet Take 1 Tab by mouth two times daily. warfarin 5 mg Oral tablet Take 5 mg by mouth once daily. No current facility-administered medications for this visit. Allergies: Codeine; Penicillins; Sulfa (sulfonamide antibiotics); and Trimethoprim Social History: Jorge L reports that he quit smoking about 31 years ago. His smoking use i ncluded Cigarettes. He has a 1 pack-year smoking history. He has never used smokeless tobacc o. He reports that he uses illicit drugs. He reports that he does not drink alcohol. Vaccinations: There is no immunization history on file for this patient. FH: family history includes Cancer in his mother (mesothelioma) and Heart Disease in his fa ther. Rapid 3 MHAQ: 4.7 (05/16/13 1000) PAIN LEVEL: 8 (05/16/13 1000) GLOBAL ASSESSMENT: 5 (05/16/13 1000) RAPID 3: 5.9 (05/16/13 1000) OVERALL LEVEL OF FATIGUE/TIREDNESS: 8.0 (05/16/13 1000) OVERALL LEVEL OF NECK, BACK, OR HIP PAIN: 9.5 (05/16/13 1000) OVERALL LEVEL OF PAIN/SWELLING IN JOINTS OTHER THAN NECK, BACK, OR HIPS: 9.0 ( 1000) OVERALL LEVEL OF DISCOMFORT FROM AREAS TENDER TO TOUCH OR PRESURE: 9.0 (05/16/13 1000 ) OVERALL LEVEL OF MORNING STIFFNESS FROM TIME OF WAKING : 7.5 (05/16/13 1000) DURATION OF MORNING STIFFNESS: 10.0 (05/16/13 1000) BASDAI SCORE: 8.85 (05/16/13 1000) Exam: Vital Signs: BP 142/78 | Pulse 68 | Ht 1.689 m (5' 6.5") | Wt 113.853 kg (251 lb) | B [place] 39.91 kg/(m^2) Pain Score: 6 Gen: Well nourished, well developed, uses a walker, standing as he can not sit HEENT: PERRLA, EOMI, O/P clear, no facial rash or alopecia Neck: supple, no lymphadenopathy, FROM Lungs: clear to ausculation bilaterally CVS: S1S2, RRR, no murmurs, rubs or gallops Abd: normal BS, soft, NT, ND Ext: no clubbing, cyanosis or edema M/S: no synovitis, has tenderness to pressing over his post sup iliac spines, 10 deg R kne e flexion due to pain and ankylosis of R hip, L knee flexion almost 90 deg with L hip flexio n 30 deg, WTO 26, MATT 34 cm, Miki 0, lat flexion 0, Skin: no abnormalities Neuro: grossly non focal Labs: Lab Results Component Value Date WBC 8.34 03/19/2013 RBC 4.30* 03/19/2013 HCT 37.0* 03/19/2013 HB 12.1* 03/19/2013 MCV 86.0 03/19/2013 MCHC 32.7* 03/19/2013 PLT 258 03/19/2013 NEUTROPERC 64 02/19/2011 LYMPHPERC 26 02/19/2011 MONOPERC 7 02/19/2011 EOSPERC 2 02/19/2011 BASOPERC 1 02/19/2011 NEUTROPHILCO 7.5 02/19/2011 GLU 131* 03/19/2013 BUN 10 03/19/2013 CR 0.76 03/19/2013 TP 7.2 03/10/2013 ALB 2.9* 03/19/2013 CA 9.0 03/19/2013 TBILI 0.8 03/10/2013 AP 80 03/10/2013 AST 42* 03/10/2013 NA 137 03/19/2013 K 4.1 03/19/2013 CL 99 03/19/2013 BICARB 29 03/19/2013 ALT 61* 03/10/2013 No results found for this basename: ESR Radiology: TWO-VIEW RIGHT HIP WITH ONE-VIEW PELVIS: 05/23/2009 Dictated 05/23/2009 COMPARISON: None. F INDINGS: There is severe joint space narrowing at both hip joints with subchondral lucency s uspicious for erosions. There is relatively mild osteophytosis given the amount of joint spa ce narrowing. Both sacroiliac joints appear ankylosed, and the limited images of the lower l umbar spine suggest syndesmophytic ankylosis. No acute fracture is identified. Mild irregula rity is present in both ischial tuberosities, greater on the right, in the expected location of the hamstring origins. IMPRESSION: Findings typical of ankylosing spondylitis, with adva nced bilateral hip arthropathy and probable erosions EXAM: MT PELVIS 1 VIEW, 05/10/12 COMPARISON: 12/15/2010 HISTORY: Left total hip arthroplasty FINDINGS: There has been recent resection of the left femoral head and neck and placement o f a non-cemented total hip arthroplasty. There is normal alignment and no fracture or other acute complication. Bilateral sacroiliac ankylosis and probable right hip ankylosis are unch anged; lumbar spine syndesmophytes are likely present. IMPRESSION: New left total hip arthro plasty in normal alignment without hardware complication. Unchanged findings of ankylosing s pondylitis. STUDY: HIPS BILAT 2 VIEWS W AP PELV 08/11/12 15:11:00 HISTORY: Pain. COMPARISON: 05/09/12 FI NDINGS: Ankylosis of the right hip joint is unchanged. The noncemented left total hip arthro plasty shows normal alignment and no hardware failure or periprosthetic lucency. Bilateral s acroiliac and probable pubic symphysis ankyloses are redemonstrated. No fracture or focal os seous destruction is identified. IMPRESSION: Stable left total hip arthroplasty. Unchanged r ight hip, sacroiliac, and pubic symphysis ankyloses compatible with ankylosing spondylitis STUDY: CHEST 2 VIEWS 03/10/13 18:50:00 COMPARISON: None. HISTORY: Preoperative evaluation. FINDINGS: There is syndesmophyte formation seen throughout the thoracic spine with mild incr eased thoracic kyphosis. The pleural margins and lungs appear clear the cardiac silhouette i s within normal limits. There is mild tortuosity of the thoracic aorta. IMPRESSION: Syndesmo phyte formation compatible with ankylosing spondylitis. Clear lungs. Impression: This is a 62 y.o. male with PMH of APLS (based on R LE DVT and CVA with pos itive LA and ACL IgA Ab) on chronic ACO with coumadin who also holds a longstanding diagno sis of which started with inflammatory back pain when he was 17 yo, managed transiently with NSAIDs and pain medication afterwards. No peripheral arthritis, no Dactilytis, no skin psoriasis, no uveitis He already has significant ankylosis of his spine, pubic symphysis and hips, s/p L SUSHIL but still unable to sit and sleep except in a lifting chair due to ankylosis and immobility of h is R hip and spine with subsequent significant disability and decreased quality of life. Recent evidence shows that even in cases of advanced disease with ankylosis, treatment with anti-TNF can improve mobility by decreasing inflammation at the level of entheses. In our patient this approach is very much warented as we hope it will make a difference in regards to his quality of life. PARQ held and patient explained all risks and benefits of anti-TNF therapy. We had our clin ical pharmacist discussing with him, including options and way of administering of different anti-TNF and he will likely opt for golimumab. Plan: 1. Check CRP, UA, hepatitis panel 2. CXR 3. PPD placed and to be read in 48-72 hours(will make addendum) 4. Patient counseled to get influenza shot and pneumovax, but he declined in the end, will reinforce with next visit 5. Anti-TNF therapy to be started pending insurance authorization 6. Bone health- recommended vit D 1000 U and calcium 600 mg 7. F/U in June- July I reviewed the patient s questionnaire which included more than 10 review of systems, ans wered all questions raised, and provided counseling and education. Patient seen and examined with Dr Arredodno who agrees with assessment and plan YULISA HEARN MD RHEUMATOLOGY FELLOWS [address] [facility] Mailcode: [address] [place] [address] documented in this en counter Plan of Treatment Not on filedocumented as of this encounter Procedures + +--------+ + + + | Procedure Name | Priori | Date/Time | Associated Diagnosis | Comments | | | ty | | | | + +--------+ + + + | MT TB INTRADERMAL | Routin | 05/16/2013 | (ankylosing | | | TEST | e | 11:12 AM | spondylitis) ([facility]) | | | | | PDT | | | + +--------+ + + + documented in this encounter Results HEPATITIS B CORE AB, SERUM (05/16/2013 12:26 PM PDT) + + + + + + | Component | Value | Ref Range | Performed | Pathologist | | | | | At | Signature | + + + + + + | HEPATITIS B | Negative | Negative | [facility] - | | | CORE AB, | | | [facility] - | | | SERUM | | | [place] | | + + + + + + + + | Specimen | + + | Blood - Blood | + + + + + + + | Performing | Address | City/State/Zipcode | Phone Number | | Organization | | | | + + + + + | [facility] - | [address] | [place] [address] | | | [place] | | | | + + + + + HEPATITIS C AB W/CONFIRMATION REFLEX PCR (05/16/2013 12:26 PM PDT) + + + + + + | Component | Value | Ref Range | Performed | Pathologist | | | | | At | Signature | + + + + + + | HEPATITIS C | Negative | Negative | [facility] - | | | AB | | | [facility] - | | | | | | [place] | | + + + + + + + + | Specimen | + + | Blood - Blood | + + + + + + + | Performing | Address | City/State/Zipcode | Phone Number | | Organization | | | | + + + + + | [facility] | [address] | [place] [address] | | | [place] | | | | + + + + + HEPATITIS B SURFACE AG, SERUM (05/16/2013 12:26 PM PDT) + + + + + + | Component | Value | Ref Range | Performed | Pathologist | | | | | At | Signature | + + + + + + | HEPATITIS B | Negative | Negative | [facility] - | | | SURFACE | | | [facility] - | | | AG, SERUM | | | [place] | | + + + + + + + + | Specimen | + + | Blood - Blood | + + + + + + + | Performing | Address | City/State/Zipcode | Phone Number | | Organization | | | | + + + + + | [facility] - | [address] | [place] [address] | | | [place] | | | | + + + + + SEDIMENTATION RATE (05/16/2013 12:26 PM PDT) + +-------+ + + + | Component | Value | Ref Range | Performed | Pathologist | | | | | At | Signature | + +-------+ + + + | SEDIMENTATI | 18 | 0 - 20 mm/hr | [facility] | | | ON RATE | | | LABORATORY | | | | | | SERVICES, | | | | | | CORE | | + +-------+ + + + + + | Specimen | + + | Blood - Blood | + + + + + + + | Performing | Address | City/State/Zipcode | Phone Number | | Organization | | | | + + + + + | [facility] | [address] | [place] [address] | | | SERVICES, [place] | [address] | | | + + + + + C-REACT PRTN (FOR INFLAMMATION) (05/16/2013 12:26 PM PDT) + +---------+ + + + | Component | Value | Ref Range | Performed | Pathologist | | | | | At | Signature | + +---------+ + + + | C-REACTIVE | 2.1 (H) | <=0.8 mg/dL | [facility] - | | | PROTEIN | | | [facility] - | | | | | | [place] | | + +---------+ + + + + + | Specimen | + + | Blood - Blood | + + + + + + + | Performing | Address | City/State/Zipcode | Phone Number | | Organization | | | | + + + + + | [facility] | [address] | [place] [address] | | | [place] | | | | + + + + + X-RAY CHEST 2 VIEW (05/16/2013 12:08 PM PDT) + + + + + + | Component | Value | Ref Range | Performed | Pathologist | | | | | At | Signature | + + + + + + | CHEST, 2 | EXAM: CHEST 2 VIEWS | | | | | VIEWS [place] | 05/16/13 12:08:00 | | | | | STEREO | HISTORY: Ankylosing | | | | | | spondylitis. Scarring | | | | | | and anti-TNF | | | | | | COMPARISON: 03/10/13. | | | | | | FINDINGS: Heart size is | | | | | | normal. Thoracic | | | | | | aorta is tortuous as | | | | | | before. There is | | | | | | minimalleft basilar | | | | | | atelectasis/scarring. | | | | | | Osseous changes of | | | | | | ankylosing spondylitisas | | | | | | previously | | | | | | described. There is | | | | | | no new radiographic | | | | | | abnormality. IMPRESSION: | | | | | | Minimal left basilar | | | | | | linear atelectasis/scar, | | | | | | otherwise clear lungs. | | | | | | Attending Radiologists: | | | | | | MARYELLEN NESS | | | | | | MDAuthor: MARYELLEN | | | | | | MD THI I have | | | | | | personally viewed this | | | | | | procedure/exam, reviewed | | | | | | this report, and | | | | | | madechanges to it where | | | | | | appropriate. | | | | | | Final/Electronically | | | | | | signed / MARYELLEN | | | | | | THI 05/16/2013 15:23 | | | | | | PM | | | | + + + + + + + + | Specimen | + + | | + + + +---------+ + + | Performing | Address | City/State/Zipcode | Phone Number | | Organization | | | | + +---------+ + + | [facility] OF | | | | | RADIOLOGY | | | | + +---------+ + + documented in this encounter Visit Diagnoses + + | Diagnosis | + + | (ankylosing spondylitis) (HCC) - Primary Ankylosing spondylitis | + + documented in this encounter
--- OUTSIDE RECORDS SUMMARY | ~2019-01-28 | XMS | Encounter Summary ---
Demographics + + + | Address | [address] | | | [place] [address] | + + + | Home Phone | | + + + | Preferred Language | Unknown | + + + | Marital Status | Single | + + + | Sabianist Affiliation | BAP | + + + [...] Phone | + + +---------+ + | Nalleyl Cisneros | ECON | Unknown | | + + +---------+ + | Jean Funk | ECON | Unknown | Unavailable | + + +---------+ + Care Team Providers + +------+ + | Care Ground Equipment Mechanic Name | Role | Phone | + [...] Chavez, | | | 2013 | | [place] at [facility] [address] | | | | | | [address] | | | | | | Mailcode: [place] | | | | | | for Health and | | | | | | [facility] [address] | | | | | | [place], [place] | | | | | | [address] | | | | | | [phone] | | | +--------+ + + + [...]
--- OUTSIDE RECORDS SUMMARY | ~2019-01-28 | XMS | Encounter Summary ---
Demographics + + + | Address | [address] | | | [place] [address] | + + + | Home Phone | | + + + | Preferred Language | Unknown | + + + | Marital Status | Single | + + + | Evangelical Affiliation | BAP | + + + | Race | or | + + + | Ethnic Group | Not or | + + + Author + + + | Author | [facility] | + + + | Organization | [facility] | + + + | Address [...] Team Providers + +------+ + | Care Avian Keeper Name | Role | Phone | + [...] 11/22/ | Telephone | [facility] | Adrinao Chavez, | | | 2013 | | [place] at [facility] [address] | | | | | | [address] | | | | | | Mailcode: [place] | | | | | | for Health and | | | | | | [facility] [address] | | | | | | [place], [place] | | | | | | [address] | | | | | | [phone] | | | +--------+ + + + [...]
--- OUTSIDE RECORDS SUMMARY | ~2019-01-28 | XMS | Encounter Summary ---
Demographics + + + | Address | [address] | | | [place] [address] | + + + | Home Phone | | + + + | Preferred Language | Unknown | + + + | Marital Status | Single | + + + | Restorationist Affiliation | BAP | + + + | Race | or | + + + | Ethnic Group | Not or | + + + Author + + + | Author | [facility] | + + + | Organization | [facility] | + + + | Address [...] Team Providers + +------+ + | Care Hot Bread Baker Name | Role | Phone | + +------+ + | Gracie Mariano MD | PCP | Unavailable | + +------+ + Reason for Visit + + + | Reason | Comments | + + + | Ankylosing | | | spondylitis | | + + + Consultation (Routine) +--------+--------+ + + + + | Status | Reason | Specialty | Diagnoses / | Referred By | Referred To | | | | | Procedures | Contact | Contact | +--------+--------+ + + + + | Closed | | Rheumatology | Diagnoses | Purnima | [facility] | | | | | Ankylosing | MD Harinder | [address] | | | | | spondylitis | [address] | | | | | ([facility]) | [address] | [address] | | | | | Procedures | [facility] Mailcode: | | | | | CONSULT TO | [place] [address] | OP09 | | | | | RHEUMATOLOGY | Phone: | Physicians | | | | | | [phone] | [address] | | | | | | Fax: | Floor | | | | | | [phone] | [place], [place] | | | | | | | [address] | | | | | | | Phone: | | | | | | | [phone] | | | | | | | Fax: | | | | | | | [phone] | +--------+--------+ + + + + Encounter Details +--------+---------+ + + + | Date | Type | Department | Care Team | Description | +--------+---------+ + + + | 03/08/ | Office | Rheumatology at | Yulisa Hearn, | Ankylosing | | 2013 | Visit | Rosette Garnett | [address] | spondylitis (HCC) | | | | [address] [facility] | [address] | (Primary Dx) | | | | [facility] | [place] [address] | | | | | Mailcode: PV35 | [phone] | | | | | Rosette Garnett | | | | | | [place], [place] | | | | | | [address] | | | | | | [phone] | | | +--------+---------+ + + + [...] + + + | Blood Pressure | 130/70 | 03/08/2014 11:08 AM | | | | | PDT | | + + + + + | Pulse | 75 | 03/08/2014 11:08 AM | | | | | PDT [...] + + + + | Weight | 116.1 kg (256 lb) | 03/08/2014 11:08 AM | | | | | PDT | | + + + + + | Height | 165.1 cm (5' 5") | 03/08/2014 11:08 AM | | | | | PDT | | + + + + + | Body Mass Index | 42.6 | 03/08/2014 11:08 AM | | | | | PDT | | + + + + + documented in this encounter Progress Notes Celina Soto MD - 03/13/2014 10:01 AM PDT I have evaluated the patient with Dr Hearn and agree with the history, findings, assessmen t and plan. Celina Soto M.D. [address] [place] [address] Mailcode: Pv35 [facility] [address] Yulisa Winchester MD - 5:30 PM PDT RHEUMATOLOGY FOLLOW UP-03/05 Last visit 12/04 CC: Chief Complaint Patient presents with Ankylosing spondylitis HPI: This is a 62 y.o. male, here for follow up of ankylosing spondylitis. 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 He uses a lifting chair which tilts in order to s leep as he can not flex his hips. neck is also ankylosed with stooped posture and no ROM. - L SUSHIL on 05/05 2012 pelvis xray - B/L SI joints ankylosis, pubic simphysis ankylosis and lumbar spine synd esmophytes 03/04 cholecystectomy with residual abdominal hernia. -11/03-GI visit-segmental colonic resection for diverticular disease. He has a history of 3- 4 unremarkable colonoscopies over the last 10-15 years. Last colonoscopy revealed ulceration at the ileocecal valve with an inflammatory infiltrate which could be related to , less likely IBD -12/04-rec to start humira, PPD neg Today's visit: Mr Cisneros comes for follow up of his He did not start humira awaiting R hip surgery, finally scheduled for next week -03/12. This was postponed sec to his uncontrolled diabetes, last HbA1c now 6.4 Has pain and stiffness in his spine from neck to hips and is stiff for almost the whole day s Sleeps in a recliner chair, can not sit Takes morphine for pain, can not take NSAIDs being on coumadin and sec to his bowel ulcer Regular pain level is 7- 8 and he manages it with oral morphine and marijuana Has few episodes of loose BM daily, better on marijuana, no blood Has L knee mechanical pain, awaiting L TKA after the hip Some numbness in LE sec to neuropathy He never had peripheral arthritis, no skin psoriasis, no h/o enthesitis, no red or painful eyes, no dactylitis No chest pain, SOB, constitutional symptoms, no official diagnosis of IBD, no dysuria or h ematuria. ROS: More then 10 point review of symptoms performed, pertinent as above. For full ROS plea se refer to patient queationnaire scanned in [facility] PMH: Past Medical History Diagnosis Date Diabetes [...] conditions Difficult intubation glidescope used for intubation PSH: Past Surgical History Procedure Laterality Date Colectomy 2003 partial, for diverticulitis Rotator cuff repair 1997 Left total hip arthroplasty with complexity modifier, incisional wound vac 05/09/2012 Cholecystectomy 06/2013 Meds: Current Outpatient Prescriptions Medication Sig adalimumab 40 mg/0.8 mL Subcutaneous Pen Injector Kit Inject 0.8 mL under the skin (SUB C) every fourteen days. As directed. Cholecalciferol, Vitamin D3, 5,000 unit Oral capsule Take 5,000 Units by mouth once cy ly. clotrimazole 1 % Topical Cream Apply to affected area two times daily. Apply to affect ed area for 7 consecutive days. glipiZIDE 5 mg Oral tablet Take 5 mg by mouth two times daily. insulin glargine 100 unit/mL subcutaneous solution Inject 44 Units under the skin (SUBC ) once daily at bedtime. levothyroxine 50 mcg Oral tablet Take 25 mcg by mouth once daily. lisinopril 10 mg Oral tablet Take 10 mg by mouth once daily. MEDICAL MARIJUANA once daily. 3 grams per day morphine 15 mg Oral tablet Take 1-2 Tabs by mouth every three hours as needed for sever e pain. morphine 15 mg Oral tablet Take 1 Tab by mouth every four hours as needed for severe pa in. multivitamin Oral capsule Take 1 Cap by mouth once daily. polyethylene glycol 17 gram/dose Oral Powder Take 17 g by mouth once daily. senna-docusate 8.6-50 mg Oral tablet Take 1 Tab by mouth two times daily. warfarin 6 mg oral tablet Take 6 mg by mouth once daily. No current facility-administered medications for this visit. Allergies: Codeine; Penicillins; Sulfa (sulfonamide antibiotics); and Trimethoprim Social History: Jorge L reports that he quit smoking about 32 years ago. His smoking use i ncluded Cigarettes. He has a 1 pack-year smoking history. He has never used smokeless tobacc o. He reports that he uses illicit drugs. He reports that he does not drink alcohol. Vaccinations: There is no immunization history on file for this patient. FH: family history includes Cancer in his mother (mesothelioma) and another family member a nd Heart Disease in his father. There is no history of GI. Rapid 3 MHAQ: 4.3 (03/08/14 1100) PAIN LEVEL: 8.5 (03/08/14 1100) GLOBAL ASSESSMENT: 6 (03/08/14 1100) RAPID 3: 6.27 (03/08/141099) OVERALL LEVEL OF FATIGUE/TIREDNESS: 7.0 (03/08/141099) OVERALL LEVEL OF NECK, BACK, OR HIP PAIN: 7.5 (03/08/141099) OVERALL LEVEL OF PAIN/SWELLING IN JOINTS OTHER THAN NECK, BACK, OR HIPS: 8.0 (1099) OVERALL LEVEL OF DISCOMFORT FROM AREAS TENDER TO TOUCH OR PRESURE: 5.5 (03/08/141099 ) OVERALL LEVEL OF MORNING STIFFNESS FROM TIME OF WAKING : 7.5 (03/08/141099) DURATION OF MORNING STIFFNESS: 10.0 (03/08/141099) BASDAI SCORE: 7.35 (03/08/141099) Exam: Vital Signs: BP 130/70 | Pulse 75 | Ht 1.651 m (5' 5") | Wt 116.121 kg (256 lb) | BMI 42.6 kg/(m^2) Pain Score: 6 Gen: Well nourished, well developed, uses a walker, standing as he can not sit HEENT: PERRLA, no facial rash or alopecia Neck: supple, no lymphadenopathy, FROM Lungs: clear to ausculation bilaterally CVS: S1S2, RRR, no murmurs, rubs or gallops Ext: no clubbing, cyanosis, has 1 plus peripheral pitting edema M/S: no synovitis, has tenderness to pressing over his post sup iliac spines, did not make him lay done as was too uncomfortable and difficult On previous visit had 10 deg R knee flexion due to pain and ankylosis of R hip, L knee flex ion almost 90 deg with L hip flexion 30 deg, WTO 22, MATT 32 cm, Miki 0, lat flexion 0 Skin: no abnormalities Neuro: grossly non focal Labs: Recent Labs 12/07/13 0931 02/28/14 0844 WBC 7.90 7.88 RBC 5.22 5.03 HB 14.9 14.6 HCT 44.9 41.4 PLT 254 208 NEUTROPERC 59.8 60.8 LYMPHPERC 26.5 25.5 MONOPERC 7.0 8.1 BASOPERC 1.1 0.8 EOSPERC 5.2* 4.4* Recent Labs 02/28/14 0844 NA 137 K 4.1 CL 103 BICARB 26 BUN 21* CR 0.69* GLU 118* CA 9.1 AST 16 ALT 29 AP 78 TBILI 0.9 TP 7.3 ALB 3.4* Lab Results Component Value Date CRP 2.5 12/07/2013 CRP 2.1 05/16/2013 Lab Results Component Value Date ESR 18 05/16/2013 Colonoscopy 12/28/12 ([facility]) -ulcerated ICV (previous Bx with hyperplastic changes) -ileum normal except just proximal to ICV BIOPSIES: active enteritis, active ileocolitis (mild) with increase in eosinophils poss ibly consistent with inflammation; random colon biopsies normal Radiology: TWO-VIEW RIGHT HIP WITH ONE-VIEW PELVIS: 05/23/2009 There is severe joint space narrowing at both hip joints with subchondral lucency suspiciou s for erosions. There is relatively mild osteophytosis given the amount of joint space narro wing. Both sacroiliac joints appear ankylosed, and the limited images of the lower lumbar sp ine suggest syndesmophytic ankylosis. No acute fracture is identified. Mild irregularity is present in both ischial tuberosities, greater on the right, in the expected location of the hamstring origins. IMPRESSION: Findings typical of ankylosing spondylitis, with advanced bilateral hip arthrop athy and probable erosions VT PELVIS 1 VIEW, 05/10/12 There has been recent resection of the left femoral head and neck and placement of a non-ce mented total hip arthroplasty. There is normal alignment and no fracture or other acute comp lication. Bilateral sacroiliac ankylosis and probable right hip ankylosis are unchanged; lum bar spine syndesmophytes are likely present. IMPRESSION: New left total hip arthroplasty in normal alignment without hardware complicati on. Unchanged findings of ankylosing spondylitis. HIPS BILAT 2 VIEWS W AP PELV 08/11/12 Ankylosis of the right hip joint is unchanged. The noncemented left total hip arthroplasty shows normal alignment and no hardware failure or periprosthetic lucency. Bilateral sacroili ac and probable pubic symphysis ankyloses are redemonstrated. No fracture or focal osseous d estruction is identified. IMPRESSION: Stable left total hip arthroplasty. Unchanged right hip, sacroiliac, and pubic symphysis ankyloses compatible with ankylosing spondylitis CHEST 2 VIEWS 03/10/13 There is syndesmophyte formation seen throughout the thoracic spine with mild increased tho racic kyphosis. The pleural margins and lungs appear clear the cardiac silhouette is within normal limits. There is mild tortuosity of the thoracic aorta. IMPRESSION: Syndesmophyte formation compatible with ankylosing spondylitis. Clear lungs. Impression: This is a 62 y.o. male with PMH of APLS (based on R LE DVT and CVA with pos itive LA and ACL IgA Ab) on chronic ACO with coumadin, no NSAIDs for this reason, who also has longstanding not treated, other then NSAIDs until 2010. No peripheral arthritis, no Dactilytis, no skin psoriasis, no uveitis He has significant ankylosis of his spine, pubic symphysis and hips, s/p L SUSHIL. He did not start anti-TNF as he is scheduled for his R SUSHIL next week. Explained he can start humira about a months postop to make sure in f/u visit he is healing well and no signs of infection. His BASDAI is high at 7.35. We hope that the anti-TNF may improve his mobility by decreasin g inflammation at the level of entheses. As mentioned in my previous note, the ulceration at the ileo-cecal valve with inflammatory changes on biospy, may be sec to vs IBD, which will benefit from anti-TNF also. Plan: 1. Reviewed labs done for pre-op, will ask if vitD can be checked when admitted for surgery . 2. Advised to start humira 40 mg sc QOW ~a months postop, after evidence of healing and no infection. He already had teaching on previous visit 3. Bone health- recommended vit D 1000 U and calcium 600 mg, DEXA might not be helpful. We can consider starting bisphosphonates after surgery 7. F/U in 4 months, but will keep in close touch for his surgery I reviewed the patient s questionnaire which included more than 10 review of systems, ans wered all questions raised, and provided counseling and education. Patient seen and examined with Dr Soto who agrees with assessment and plan YULISA HEARN MD RHEUMATOLOGY FELLOWS [facility] [facility] Mailcode: [id number] [place] [address] documented in this en counter Plan of Treatment Not on filedocumented as of this encounter Visit Diagnoses + + | Diagnosis | + + | Ankylosing spondylitis (HCC) - Primary Ankylosing spondylitis | + + documented in this encounter
--- OUTSIDE RECORDS SUMMARY | ~2019-01-28 | XMS | Encounter Summary ---
Demographics + + + | Address | [address] | | | [place] [address] | + + + | Home Phone | | + + + | Preferred Language | Unknown | + + + | Marital Status | Single | + + + | Tenriism Affiliation | BAP | + + + [...] Team Providers + +------+ + | Care Blasting Worker Name | Role | Phone | + +------+ + | Ino Ace MD | PCP | Unavailable | + +------+ + Reason for Visit + + + | Reason | Comments | + + + | New patient | | | consultation | | + + + Office Visit - E/M Services (Routine) +--------+--------+ + + + + | Status | Reason | Specialty | Diagnoses / | Referred By | Referred To | | | | | Procedures | Contact | Contact | +--------+--------+ + + + + | Closed | | Orthopedics | Diagnoses | Royal, | Denise, | | | | | DJD in hips | Quang Christensen, | Rosa M Paige MD | | | | | | [facility] | [address] | | | | | | [facility] | [address] | | | | | | [address] [place], | | | | | | [address] | [place] | | | | | | [place] | [address] | | | | | | [place], | Phone: | | | | | | [place] [address] | [phone] | | | | | | Phone: | Fax: | | | | | | [phone] | [phone] | | | | | | Fax: | | | | | | | [phone] | | +--------+--------+ + + + + Encounter Details +--------+---------+ + + + | Date | Type | Department | Care Team | Description | +--------+---------+ + + + | 05/23/ | Office | Orthopaedics at | Rosa M Smart MD | Ankylosing | | 2008 | Visit | [facility] [address] | [address] | Spondylitis (HCC); | | | | [facility] | [facility] | Osteoarthrosis, Hip | | | | Mailcode: [id number] | [place], [place] | | | | | [facility] | [address] | | | | | [facility] [place] | [phone] | | | | | [address] | | | | | | [phone] | | | +--------+---------+ + + + Social History + +-------+ [...] + + + | Blood Pressure | 154/71 | 05/23/2009 11:33 AM | | | | | PDT | | + + + + + | Pulse | 84 | 05/23/2009 11:33 AM | | | | | PDT | | + + + + + | Temperature | 37.1 C (98.7 F) | 05/23/2009 11:33 AM | | | | | PDT [...] + + + + | Weight | 108.9 kg (240 lb) | 05/23/2009 11:33 AM | | | | | PDT | | + + + + + | Height | 162.6 cm (5' 4") | 05/23/2009 11:33 AM | | | | | PDT | | + + + + + | Body Mass Index | 41.2 | 05/23/2009 11:33 AM | | | | | PDT | | + + + + + documented in this encounter Progress Notes Rosa M Smart MD - 05/23/2009 12:54 PM PDTI performed a history and physical examination of the patient and discussed his management with the resident. I reviewed the resident s note and agree with the documented findings and plan of care. Had a long discussion about SUSHIL and potential risks and benefits of bilateral versus staged . He will consider. He will be contacted to schedule. ROSA M SMART MD [facility] [address] [place] [address] Mailcode: [id number] [facility] [address] Raghav Alvarenga Md - 05/23/2009 12:09 PM PDT Orthopedics H&P: Author: RAGHAV BUTT MD Attending:Denise CC: R>L hip pain HPI: 58 y.o. Male with ankylosing spondylitis and many years of R>L hip pain. Is ambulatory with a walker. C/o primarily R groin pain with motion and decreased ROM. No NV complaints. No history of trauma PMHx: Past Medical History Diagnosis Date Diabetes Mellitus Type II 2007 Diverticula, Colon 2002 Meds: Current Inpatient Medications Aspirin 81 mg Oral Tablet, Take 81 mg by mouth once daily. lisinopril 5 mg Oral Tablet, Take 5 mg by mouth once daily. metformin 500 mg Oral Tablet, Take 500 mg by mouth. Take 1/2 tab twice a day simvastatin 40 mg Oral Tablet, Take 40 mg by mouth once daily in the evening. Allergies: Allergies Allergen Reactions Penicillins Rash Codeine Rash ROS: Denies recent F/C/N/V. Likewise no SOB, CP, PALMA, dizziness. No changes in B/B. Otherwise complete review negative except as in HPI. SocHx: Social History Occupational History Not on file. Social History Main Topics Tobacco Use: Quit Alcohol Use: No Drug Use: Yes Sexually Active: Not on file FamHx: N/C Exam: Last Vitals: BP 154/71 | Pulse 84 | Temp(Src) 37.1 C (98.7 F) (Oral) | Ht 1.626 m (5' 4 ") | Wt 108.863 kg (240 lb) General: NAD, alert, affect appropriate, cooperative with exam HEENT: NCAT Neck: Clinically ankylosed, very minimal L rotation CV: Regular Lungs: no increased WOB Abd: Soft RLE: Hip reaches full extension, flexion is ~30 deg, no knee flexion contracture, NVI, 2+ dp/pt, 5/5 motor throughout LLE: Hip rom 0-70 deg, no knee flexion contracture, NVI, 2+dp/pt, 5/5 motor throughout Imaging: near ankylosis B hips with severe joint space narrowing Labs: No results found for this basename: WBC,HCT,INR,CRP,ESR A/P: 58 y.o. Male with and B hip pain - would likely benefit from SUSHIL, could consider B SUSHIL at one setting if medical comorbidit ies allow documented in this e ncounter Plan of Treatment Not on filedocumented as of this encounter Visit Diagnoses + + | Diagnosis | + + | Ankylosing spondylitis (HCC) Ankylosing spondylitis | + + | Osteoarthrosis, hip Localized osteoarthrosis not specified whether primary or | | secondary, pelvic region and thigh | + + documented in this encounter
--- OUTSIDE RECORDS SUMMARY | ~2019-01-28 | XMS | Encounter Summary ---
Demographics + + + | Address | [address] | | | [place] [address] | + + + | Home Phone | | + + + | Preferred Language | Unknown | + + + | Marital Status | Single | + + + | Confucianist Affiliation | BAP | + + + | Race | or | + + + | Ethnic Group | Not or | + + + Author + + + | Author | [facility] | + + + | Organization | [facility] | + + + | [...] Team Providers + +------+ + | Care Bumper And Painter Name | Role | Phone | + +------+ + | Gracie Mariano MD | PCP | Unavailable | + +------+ + Reason for Referral Physical Therapy (Routine) +--------+--------+ + + + + | Status | Reason | Specialty | Diagnoses / | Referred By | Referred To | | | | | Procedures | Contact | Contact | +--------+--------+ + + + + | Closed | | Physical | Diagnoses | Kamila | | | | | Therapy | Adhesive | MD Leroy | | | | | | capsulitis | [address] | | | | | | of right | [address] | | | | | | shoulder | Rd | | | | | | Procedures | [place], [place] | | | | | | PHYSICAL | [address] | | | | | | THERAPY | Phone: | | | | | | REFERRAL | [phone] | | | | | | | Fax: | | | | | | | [phone] | | +--------+--------+ + + + + Reason for Visit + + + | Reason | Comments | + + + | New Patient Visit | Right shoulder arthritis | + + + Intake Referral (Routine) + +--------+ + + + + | Status | Reason | Specialty | Diagnoses / | Referred By | Referred To | | | | | Procedures | Contact | Contact | + +--------+ + + + + | Authorized | | Orthopedics | Diagnoses | Paola, | Kamila, | | | | | Right | Melina Hoyos, | MD Leroy | | | | | Shoulder | PA-C | [address] | | | | | Pain | [place] | [facility] | | | | | | [place] | [address] [place], | | | | | | Health | [place] | | | | | | [place] [address] | [address] | | | | | | | Phone: | | | | | | [place] | [phone] | | | | | | Way [address] | Fax: | | | | | | [address] | [phone] | | | | | | [place], | | | | | | | [place] [address] | | | | | | | Phone: | | | | | | | [phone] | | | | | | | Fax: | | | | | | | [phone] | | + +--------+ + + + + Encounter Details +--------+---------+ + + + | Date | Type | Department | Care Team | Description | +--------+---------+ + + + | 01/31/ | Office | Orthopaedics at | Leroy Treviño MD | Shoulder arthritis | | 2018 | Visit | [facility] [address] | [address] | (Primary Dx); | | | | [place] Mailcode: [id number] | [address] | Adhesive capsulitis | | | | [place] [facility] | [place], [place] | of right shoulder | | | | and Healing, | [address] | | | | | Floor [place], [place] | [phone] | | | | | [address] | | | | | | [phone] | | | +--------+---------+ + + + [...] Weight | 110.2 kg (243 lb) | 01/31/2018 12:19 PM | | | | | PDT | | + + + + + | Height | 176.5 cm (5' 9.5") | 01/31/2018 12:19 PM | | | | | PDT | | + + + + + | Body Mass Index | 35.37 | 01/31/2018 12:19 PM | | | | | PDT | | + + + + + documented in this encounter Progress Notes Harris Meeks MD - 01/31/2018 11:35 AM PDT New Patient Note This is a 67 y.o. left-handed male who presented for consultation with regards to a complai nt of right shoulder pain of 18 years duration. The pain began gradually and has gradually increased. History of a precipitating event was negative. He has a history of ankylosing s pondylitis. Pain is present across the anterior shoulder. The patient has an average pain level of 5-6 out of 10, characterized as varying with activity, stiffness and interfering with sleep. T he patient experiences pain extending to forearm and hand. The pain is of aching and sharp quality. The patient has aggravation of the pain with overhead activity and lifting. The p ain is improved with rest and narcotic pain medication (Morphine). The patient has previous ly undergone treatment in the form of physical therapy , ice and heat . Filed Vitals: 01/31/2018 12:19 PM Height: 1.765 m (5' 9.5") Weight: 110.2 kg (243 lb) PainSc: 07 - Severe to Very Severe PainLoc: Shoulder (Right) BMI: 35.37 kg/(m^2) Past Medical History: Diagnosis Date Ankylosing spondylitis (HCC) Ankylosing spondylitis (HCC) Anticoagulation management encounter Antiphospholipid antibody syndrome (HCC) histo Cardiac murmur Diabetes mellitus type II 2007 Diabetes mellitus with nephropathy ([facility]) Per outside records (10/09/2009) in media. Difficult intubation glidescope used for intubation Diverticula, colon 2002 DVT, lower extremity (HCC) GERD (gastroesophageal reflux disease) Heart disease, unspecified HTN (hypertension) Hypothyroidism Iron deficiency Localized osteoarthrosis not specified whether primary or secondary, pelvic region and thigh Obesity Osteoarthrosis, hip 05/23/2009 right hip Osteoarthrosis, hip Other and unspecified hyperlipidemia Shortness of breath Spinal fusion Neck fusion from Stroke ([facility]) 2009 x2 Testosterone deficiency Unspecified hemorrhagic conditions Past Surgical History Procedure Laterality Date Colectomy 2003 partial, for diverticulitis Rotator cuff repair 1997 Left total hip arthroplasty with complexity modifier, incisional wound vac 05/09/2012 Cholecystectomy 06/2013 Current Outpatient Prescriptions on File Prior to Visit Medication Sig Dispense Refill adalimumab 40 mg/0.8 mL Subcutaneous Pen Injector Kit Inject 0.8 mL under the skin (SUB C) every fourteen days. As directed. 6 kit 3 Cholecalciferol, Vitamin D3, 5,000 unit Oral capsule [...] 3 grams per day morphine 15 mg oral tablet Take 1-2 tablets by mouth every three hours as needed for mo derate pain or severe pain. 100 tablet 0 multivitamin Oral capsule Take 1 Cap by mouth once daily. polyethylene glycol 17 gram/dose oral powder Take 17 g by mouth once daily as needed (N o BM in past 3 days). 119 g 0 senna-docusate 8.6-50 mg oral tablet Take 1 tablet by mouth two times daily. 60 tablet 2 warfarin 6 mg oral tablet Take 6 mg by mouth once daily. No current facility-administered medications on file prior to visit. 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 The patient appeared consistent with the s tated age, in fairly good general health and in mild apparent distress. Vitals were Ht 1.76 5 m (5' 9.5") | Wt 110.2 kg (243 lb) | BMI 35.37 kg/(m^2). The patient had normal contour a nd symmetry of the upper extremities with no ecchymosis, swelling or muscular atrophy. The patient has normal contour and symmetry of the upper extremities with no ecchymosis, sw elling, lymphedema, or muscular atrophy. There are no surgical scars or other skin abnormal ities. Will not range neck stating he cannot s/p cervical fusion procedures The patient has normal spinal alignment in the cervical and thoracic regions with equal oly ulder heights and normal and symmetric scapulothoracic motion seen during active elevation a nd lowering of the arms. Right shoulder range of motion measures 80 degrees of active elevation, 90 degrees of passi ve elevation, 40 degrees external rotation and internal rotation to L3. Left shoulder range of motion measures 160 degrees of active elevation, 160 degrees of pass larry elevation, 50 degrees external rotation and internal rotation to T12. Palpation of the left shoulder produced anterior glenohumeral joint line tenderness. Strength testing of the right shoulder demonstrated supraspinatus 4/5, infraspinatus 4/5, s ubscapularis 4/5, anterior deltoid 5/5 and middle deltoid 5/5. The patient had normal light touch sensation across the upper extremity, including lateral and medial aspects of the arm and forearm and the palmar and dorsal aspect of the hand and f ingers. Radial and ulnar pulses were normal. Radiographs demonstrate ossification of the coracoclavicular ligaments, AC arthritic change s as well as mild glenohumeral arthritic changes. ASSESSMENT: Adhesive capsulitis given poorly controlled diabetes and globally limited passi ve shoulder range of motion PLAN: Long discussion RE diagnosis and expected outcomes of conservative treatment. Rx for PT focussing on stretching given today. Can follow up with PA in 8 weeks PRN. I saw and evaluated the patient. I agree with the findings and the plan of care as tiana garcia in the resident s note. Leroy Treviño MD, [facility](C) Supervisory Forester Department of Orthopaedics and Rehabilitation [facility] documented in this encounter Plan of Treatment Not on filedocumented as of this encounter Results X-RAY SHOULDER 3+ VIEWS RIGHT (01/31/2018 10:51 AM PDT) + + | Specimen | + + | | + + + + + | Narrative | Performed At | + + + | EXAM: SHOULDER 3 VIEWS RIGHT HISTORY: TSA. COMPARISON: | [facility] | | 11/11/2015 FINDINGS: No acute fracture or focal destruction is | RADIOLOGY VOICE | | seen. Mild to moderate glenohumeral joint space narrowing and spurs | RECOGNITION 2 | | are seen. Moderate coracoacromial ossification is present. Mild | | | acromioclavicular joint space widening is seen with central. The | | | acromial process is present with undersurface concavity suggesting | | | prior acromioplasty. Distal aspect of cervicothoracic spinal fusion is | | | seen. No soft tissue abnormality is noted. Ossification | | | IMPRESSION: Mild/moderate glenohumeral degenerative joint disease | | | versus arthropathy or ankylosing spondylitis. Coracoclavicular | | | ossification, likely sequelae of ankylosing spondylitis versus prior | | | coracoclavicular ligament injury. Posttraumatic deformity versus | | | changes of ankylosing spondylitis involving the acromioclavicular | | | joint. I have personally reviewed the images and, if necessary, | | | edited the report. I agree with the report as now presented. | | | Final signature: Myrtle Metz MD 01/31/2018 10:59 AM | | | Preliminary: Myrtle Metz MD Dictation initiated: | | | Myrtle Metz MD 01/31/2018 10:53 AM | | + + + + + | Procedure Note | + + | Service Account, Radiant Res In Interface - 01/31/2018 11:00 AM PDT EXAM: SHOULDER 3 | | VIEWS RIGHT HISTORY: TSA. COMPARISON: 11/11/2015 FINDINGS: No acute fracture or focal | | destruction is seen. Mild to moderate glenohumeral joint space narrowing and spurs are | | seen. Moderate coracoacromial ossification is present. Mild acromioclavicular joint | | space widening is seen with central. The acromial process is present with undersurface | | concavity suggesting prior acromioplasty. Distal aspect of cervicothoracic spinal fusion | | is seen. No soft tissue abnormality is noted. Ossification IMPRESSION: Mild/moderate | | glenohumeral degenerative joint disease versus arthropathy or ankylosing spondylitis. | | Coracoclavicular ossification, likely sequelae of ankylosing spondylitis versus prior | | coracoclavicular ligament injury. Posttraumatic deformity versus changes of ankylosing | | spondylitis involving the acromioclavicular joint. I have personally reviewed the images | | and, if necessary, edited the report. I agree with the report as now presented. Final | | signature: Myrtle Metz MD 01/31/2018 10:59 AM Preliminary: Myrtle Metz MD | | Dictation initiated: Myrtle Metz MD 01/31/2018 10:53 AM | | | | | |Coracoclavicular ossification, likely sequelae of ankylosing spondylitis versus prior corac oclavicular ligament injury. | | | |Posttraumatic deformity versus changes of ankylosing spondylitis involving the acromioclavi cular joint. | | | |I have personally reviewed the images and, if necessary, edited the report. I agree with th e report as now presented. | | | |Final signature: Myrtle Metz MD 01/31/2018 10:59 AM | |Preliminary: Myrtle Metz MD | |Dictation initiated: Myrtle Metz MD 01/31/2018 10:53 AM | + + + +---------+ + + | Performing | Address | City/State/Zipcode | Phone Number | | Organization | | | | + +---------+ + + | [facility] | | | | | VOICE RECOGNITION 2 | | | | + +---------+ + + documented in this encounter Visit Diagnoses + + | Diagnosis | + + | Shoulder arthritis - Primary Unspecified arthropathy, shoulder region | + + | Adhesive capsulitis of right shoulder Adhesive capsulitis of shoulder | + + documented in this encounter
--- OUTSIDE RECORDS SUMMARY | ~2019-01-28 | XMS | Encounter Summary ---
Demographics + + + | Address | [address] | | | [place] [address] | + + + | Home Phone | | + + + | Preferred Language | Unknown | + + + | Marital Status | Single | + + + | Yazidi Affiliation | BAP | + + + | Race | or | + + + | Ethnic Group | Not or | + + + Author + + + | Author | [facility] | + + + | Organization | [facility] | + + + | Address [...] Team Providers + +------+ + | Care Airborne Mission Systems Superintendent Name | Role | Phone | + +------+ + | Kita Schafer MD | PCP | | + +------+ + Encounter Details +--------+ + + + + | Date | Type | Department | Care Team | Description | +--------+ + + + + | 12/15/ | Hospital | Diagnostic | | | | 2010 | Encounter | Radiology at [facility] | | | | | | [address] [facility] | | | | | | [facility] | | | | | | Mailcode: [id number] | | | | | | Physicians [address] | | | | | | [place], [place] | | | | | | [address] | | | | | | [phone] | | | +--------+ + + + + Social History + +-------+ +--------+------+ | Tobacco Use | Types | Packs/Day | Years | Date | | | | | Used | | + +-------+ +--------+------+ | Former Smoker | | | | | + +-------+ +--------+------+ + +---+---+---+ | Smokeless Tobacco: | [...] + +--------+ + + + | X-RAY HIPS BILAT 2 | Routin | 12/15/2010 | Osteoarthrosis, | Results for this | | VIEWS WITH AP PELVIS | e | 11:55 AM | hip | procedure are in the | | | | PDT | | results section. | + +--------+ + + + documented in this encounter Results X-RAY HIPS BILAT 2 VIEWS WITH AP PELVIS (12/15/2010 11:55 AM PDT) + + + + + + | Component | Value | Ref Range | Performed | Pathologist | | | | | At | Signature | + + + + + + | HIPS BILAT | STUDY: HIPS BILAT 2 | | | | | 2 VIEWS W | VIEWS W AP PELV 12/15/10 | | | | | AP PELV | 11:55:00 COMPARISON: | | | | | | 05/23/09. HISTORY: | | | | | | Evaluate bilateral hips. | | | | | | FINDINGS: On the right, | | | | | | there is progression of | | | | | | advanced hip joint | | | | | | spacenarrowing with | | | | | | indistinctness of | | | | | | articular margins highly | | | | | | suggestiveof ankylosis | | | | | | involving the superior | | | | | | and medial right hip | | | | | | joint.Subchondral | | | | | | sclerosis is noted in | | | | | | the acetabulum and | | | | | | acetabular andfemoral | | | | | | head osteophyte | | | | | | formation is seen. On | | | | | | the left, there | | | | | | isadvanced axial hip | | | | | | joint space narrowing | | | | | | with femoral head | | | | | | andacetabular | | | | | | osteophytosis, which has | | | | | | progressed compared to | | | | | | the | | | | | | priorstudy. Ankylosis | | | | | | is present at both | | | | | | sacroiliac joints and | | | | | | there isosseous fusion | | | | | | of the lower lumbar | | | | | | spine. Enthesopathy | | | | | | is seen ofthe ischial | | | | | | tuberosities. No | | | | | | fracture is | | | | | | outlined. There is no | | | | | | softtissue abnormality. | | | | | | IMPRESSION: Findings of | | | | | | advanced ankylosing | | | | | | spondylitis with | | | | | | advanced bilateralhip | | | | | | arthropathy which has | | | | | | progressed compared to | | | | | | 05/23/09 withprobable | | | | | | partial ankylosis of the | | | | | | right hip joint. I have | | | | | | personally viewed this | | | | | | procedure/exam and | | | | | | reviewed this report. | | | | | | Author: GRADY | | | | | | MATT | | | | | | VaishnaviReviewer: GRADY | | | | | | Vaishnavi GUTIERREZ STATUS | | | | | | FINAL / Dr. RASMUSSEN | | | | | | MATT | | | | + + + + + + + + | Specimen | + + | | + + + +---------+ + + | Performing | Address | City/State/Zipcode | Phone Number | | Organization | | | | + +---------+ + + | [facility] | | | | | RADIOLOGY | | | | + +---------+ + + documented in this encounter Visit Diagnoses + + | Diagnosis | + + | Osteoarthrosis, hip Localized osteoarthrosis not specified whether primary or | | secondary, pelvic region and thigh | + + documented in this encounter"
--- OUTSIDE RECORDS SUMMARY | ~2019-01-28 | XMS | Encounter Summary ---
Demographics + + + | Address | [address] | | | [place] [address] | + + + | Home Phone | | + + + | Preferred Language | Unknown | + + + | Marital Status | Single | + + + | Mormonism Affiliation | BAP | + + + | Race | or | + + + | Ethnic Group | Not or | + + + Author + + + | Author | [facility] | + + + | Organization | [facility] | + + + | [...] Team Providers + +------+ + | Care Parts Specialist Name | Role | Phone | + +------+ + | Scooby Mcclure MD | PCP | | + +------+ + Reason for Visit + + + | Reason | Comments | + + + | Hospital admission, | | | transfer from other | | | hospital or health | | | care facility | | + + + Encounter Details +--------+ + + + + | Date | Type | Department | Care Team | Description | +--------+ + + + + | 05/16/ | Telephone | Orthopaedics at | Jorge Walker MD | Hospital admission, | | 2011 | | [facility] [address] | [address] | transfer from other | | | | [facility] | [facility] | [facility] | | | | Mailcode: [id number] | [place], [place] | care facility | | | | [facility] | [address] | | | | | [place], [place] | [phone] | | | | | [address] | | | | | | [phone] | | | +--------+ + + + [...]
--- OUTSIDE RECORDS SUMMARY | ~2019-01-28 | XMS | Encounter Summary ---
Demographics + + + | Address | [address] | | | [place] [address] | + + + | Home Phone | | + + + | Preferred Language | Unknown | + + + | Marital Status | Single | + + + | Adventism Affiliation | BAP | + + + | Race | or | + + + | Ethnic Group | Not or | + + + Author + + + | Author | [facility] | + + + | Organization | [facility] | + + + | Address [...] Team Providers + +------+ + | Care Craft Coordinator Name | Role | Phone | + +------+ + | Gracie Mariano MD | PCP | Unavailable | + +------+ + Reason for Visit + + + | Reason | Comments | + + + | Anticoagulant | | | monitoring | | + + + Encounter Details +--------+ + + + + | Date | Type | Department | Care Team | Description | +--------+ + + + + | 03/20/ | Telephone | AntiCoagulation at | Nancie Blakely, | Anticoagulant | | 2012 | | [facility] [address] | [facility] [address] | monitoring | | | | [facility] | [facility] | | | | | [facility] | [place], [place] | | | | | [address] | [address] | | | | | [facility] | [phone] | | | | | [facility] [place] | | | | | | [address] | | | | | | [phone] | | | +--------+ + + + [...]
--- OUTSIDE RECORDS SUMMARY | ~2019-01-28 | XMS | Encounter Summary ---
Demographics + + + | Address | [address] | | | [place] [address] | + + + | Home Phone | | + + + | Preferred Language | Unknown | + + + | Marital Status | Single | + + + | Mormon Affiliation | BAP | + + + | Race | or | + + + | Ethnic Group | Not or | + + + Author + + + | Author | [facility] | + + + | Organization | [facility] | + + + | Address [...] Team Providers + +------+ + | Care Medical Housekeeper Name | Role | Phone | + [...] Description | +--------+---------+ + + + | 03/12/ | Surgery | 6A Intra Op [facility] | Rosa M Smart MD | COMPLEX RIGHT TOTAL | | 2013 | | [facility] | [address] | HIP ARTHROPLASTY AND | | | | Admitting Desk | [facility] | VACUUM ASSISTED | | | | Located on the | [place], [place] | CLOSURE | | | | floor [address] | [address] | | | | | [facility] | [phone] | | | | | [place], [place] | | | | | | [address] | | | +--------+---------+ + + + [...] + + + | Blood Pressure | 136/66 | 03/16/2014 7:18 AM | | | | | PDT | | + + + + + | Pulse | 83 | 03/16/2014 7:18 AM | | | | | PDT | | + + + + + | Temperature | 36.8 C (98.2 F) | 03/16/2014 7:18 AM | | | | | PDT | | + + + + + | Respiratory Rate | 16 | 03/16/2014 7:18 AM | | | | | PDT | | + + + + + | Oxygen Saturation | 97% | 03/16/2014 7:18 AM | | | | | PDT | | + + + + + | Inhaled Oxygen | - | - | | | Concentration | | | | + + + + + | Weight | 118.4 kg (261 lb 0.4 | 03/12/2014 6:20 AM | | | | oz) | PDT | | + + + + + | Height | - | - | | + + + + + | Body Mass Index | 43.44 | 03/08/2014 11:08 AM | | | | | PDT | | + + + + + documented in this encounter Discharge Summaries Ender Phelps MD - 03/16/2014 7:52 AM PDTFormatting of this note might be different fr om the original. [facility] DISCHARGE SUMMARY & INTERDISCIPLINARY INSTRUCTIONS Patient: Jorge L Cisneros CSN: [id number] Admission Date: 03/12/2014 Discharge Date: 03/16/2014 Attending Physician: Rosa M Smart MD PCP: Gracie Mariano MD Service: [facility] Orthopaedics & Rehabilitation Diagnoses Principal Final Diagnosis: 1. Ankylosing spondylitis. 2. 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 Additional Diagnoses: DM2, HTN, GERD, Obesity, Hypothyroidism Procedures On 05-09-2014 1. Right total hip arthroplasty with complexity modifier. 2. Placement of incisional wound VAC. Brief Hospital Course 1. Jorge L Cisneros was admitted on 03/12/2014 for an elective Right Total Hip Replacement. Pat ient had endstage arthritis and had failed conservative measures. . Viky op patient was giv en 24 hours of ancef. For DVT prophylaxis, patient was restarted on home does of Coumadin. SCDs and SHAHID hose were used. Patient mobilized well with Physical Therapy and Occupational Therapy. They were discharged home when comfortable. Implants: 1. Mari Continuum acetabular shell, size 58 mm outer diameter with 36 mm inner diameter neutral cross-linked polyethylene liner. 2. Mari trabecular metal femoral stem, size number 13 with extended offset and a 36, minus 3.5 neck length Biolox delta femoral head. Diet Diabetic (Consistent Carbohydrate) Diabetic diet (Consistent Carbohydrate)- You should be careful to control your daily inta ke of carbohydrates and ensure that you are consuming the same amount of carbohydrates each day. Your health care provider will work with you to determine the appropriate amount of ca rbohydrates your body needs. Wound Care -If you have sutures or conrado, do not get your wound wet for 3-5 days after your operatio n. Sponge bath or cover the incision with a waterproof bandage. Keep your incision covered w ith a dressing until there is no discharge on bandage.- If you have Steri-Strips (paper tape ) over your incision, keep the incision covered until there is no discharge on bandage. Do n ot remove Steri-Strips, they will fall off on their own. Trim edges of the Steri-Strips if t hey start to peel up. Do not get your wound wet for 5-7 days after your operation.- Once wou nd is closed (no drainage), you may shower. Let water run over wound. Pat dry. Do not scrub or soak wound in water.- Avoid using lotions, powders, oils, or ointments on your incision.- DO NOT let anyone start you on antibiotics if they suspect your wound is infected. Call [facility] Orthopedics first at [phone]. Activity Weight bear as tolerated on both lower extremities. Restrictions: Posterior hip precautions on operative side (no hip flexion >90 degrees, no c rossing your legs, no turning your foot towards the middle of the body (internal rotation). Condition on Discharge Stable Follow-Up Appointments ORTHOPEDICS OUTPATIENT CLINIC: Future Appointments Date & Time Provider Department Dept Phone Center 04/26/2014 10:45 AM Rosa M Smart Orthopaedics at [facility] [phone] Orthopedics PCP: As needed for any medical concerns not related to your surgery. Current Discharge Medication List CONTINUE these medications which have CHANGED or have new prescriptions Details morphine 15 mg oral tablet Take 1-2 tablets by mouth every three hours as needed for modera te pain or severe pain. Qty: 100 tablet, Refills: 0 polyethylene glycol 17 gram/dose oral powder Take 17 g by mouth once daily as needed (No BM in past 3 days). Qty: 119 g, Refills: 0 senna-docusate 8.6-50 mg oral tablet Take 1 tablet by mouth two times daily. Qty: 60 tablet, Refills: 2 CONTINUE these medications which have NOT CHANGED Details adalimumab 40 mg/0.8 mL Subcutaneous Pen Injector Kit Inject 0.8 mL under the skin (SUBC) e very fourteen days. As directed. Qty: 6 kit, Refills: 3 Cholecalciferol, Vitamin D3, 5,000 unit Oral capsule Take 5,000 Units by mouth once daily. clotrimazole 1 % Topical Cream Apply to affected area two times daily. Apply to affected a grisel for 7 consecutive days. glipiZIDE 5 mg Oral tablet Take 5 mg by mouth two times daily. insulin glargine 100 unit/mL subcutaneous solution Inject 44 Units under the skin (SUBC) on ce daily at bedtime. levothyroxine 50 mcg Oral tablet Take 25 mcg by mouth once daily. lisinopril 10 mg Oral tablet Take 10 mg by mouth once daily. MEDICAL MARIJUANA once daily. 3 grams per day multivitamin Oral capsule Take 1 Cap by mouth once daily. warfarin 6 mg oral tablet Take 6 mg by mouth once daily. Vital Signs on Discharge: Wt 118.4 kg (261 lb 0.4 oz), BP 136/66, Pulse 83, Temperature 36. 8 C (98.2 F), RR 16, SpO2 97%, BMI 43.44 kg/(m^2). Condition on Discharge: Improved Discharging Patient To: Home Date and Time of Discharge Summary Completion: 03/16/2014, 7:52 AM Discharging Provider: Ender Phelps MD Discharging Attending: Rosa M Smart MD Thank you for the opportunity to take care of Jorge L Cisneros during this inpatient stay, it h as been our pleasure. Ender Phelps MD Pager # [phone] documented in this enc ounter Discharge Instructions Instructions Gifty Coffey RN - 03/16/2014Patient Education Materials: AVS paperw ork & dressing supplies. Provided patient with morphine, sennakot and miralax that were fill ed at our outpatient pharmacy. No personal belongings held in our safe. Pt. Did not have an y additional questions at this time. Patients transportation from [facility] transporting [facility] back home. Additional Instructions: Per Sarah Gee NP: Pt is to take three 1 mg warfarin tabs for a tot al of 3 mg warfarin only this evening of 03/16/2014. Patient will then resume taking his norm al dose of 6mg warfarin starting on . Patient education provided by this parts data writer beti bowen these medication instructions. HANNA drain instructions: Remove dressing from right hip on post operative day 7. The HANNA unit will stop running after 7 days. If the unit stops working prior to day 7, cut the tubin g at dressing site and apply an occlusive tape to cover it. Leave dressing on until post ope rative day 7. Discharge Nurse: GIFTY COFFEY RN Date: 03/16/2014 Discharge Time: 11:21 AM documented in this encounter Medications at Time of Discharge + + + +---------+--------+ + | Medication | Sig | Dispensed | Refills | Start | End Date | | | | | | Date | | + + + +---------+--------+ + | insulin glargine | Inject 66 Units | | 0 | | | | 100 unit/mL | under the skin | | | | | | subcutaneous | (SUBC) once daily at | | | | | | solution | bedtime. | | | | | + + + +---------+--------+ + | levothyroxine 50 | Take 50 [...] +---------+--------+ + documented as of this encounter Progress Notes Ender Phelps MD - 03/16/2014 7:47 AM PDTFormatting of this note might be different fr om the original. Orthopaedics Progress Note Subjective: Interval Hx: No events overnight. Pain reasonably well controlled. Objective: 24 Hour Vital Min/Max: Pulse Av.3 Min: 81 Max: 112 Systolic (24hrs), Av mmHg, Min:125 mmHg, Max:149 m mHg Temp Av.1 C (98.7 F) Min: 36.7 C (98.1 F) Max: 37.6 C (99.7 F) Diastoli c (24hrs), Av mmHg, Min:59 mmHg, Max:76 mmHg Resp Av Min: 16 Max: 16 SpO2 Av.2 % Min: 94 % Max: 97 % Intake/Output Summary (Last 24 hours) at 03/16/14 0747 Last data filed at 03/16/14 0700 Gross per 24 hour Intake 3930 ml Output 4550 ml Net -620 ml Recent Laboratory Data: Lab Results Component Value Date WBC 9.19 03/16/2014 HCT 31.5 03/16/2014 PLT 231 03/16/2014 NA 135 03/16/2014 K 4.1 03/16/2014 CL 100 03/16/2014 HCO3 22.9 03/13/2013 BUN 9 03/16/2014 CR 0.73 03/16/2014 GLU 134 03/16/2014 Lab Results Component Value Date INRPT 2.32* 03/16/2014 Exam: General: Awake, alert, oriented, fluent speech Respiratory: Normal respiratory effort Motor/extremities: RLE: HANNA holding seal. + TA/EHL/GSC, SILT sa/mclain/sp/dp/t, palpable DP/PT pulses. A/P: Jorge L Cisneros is a 63 y.o. male POD4 s/p R SUSHIL IV/PO pain control PT/OT: WBAT RLE with posterior hip precautions DVT ppx: continue warfarin, goal INR 2-3 (therapeutic today) Abx: Ancef x 24 hrs, completed Maintain HANNA Labs: no abnormalities X-rays: AP pelvis reviewed and demonstrates implants in appropriate position Received radiation for HO prophylaxis Dispo: anticipate d/c home today Ender Phelps MD Pager # [phone] uff, Rosa M Paige MD - 03/15/2014 7:55 AM PDT Orthopaedics Progress Note Subjective: Interval Hx: No events overnight. Ambulated more with PT yesterday, still adamant that he w ants to go home. Objective: 24 Hour Vital Min/Max: Pulse Av.7 Min: 83 Max: 91 Systolic (24hrs), Av mmHg, Min:129 mmHg, Max:152 mm Hg Temp Av.1 C (98.7 F) Min: 36.6 C (97.9 F) Max: 37.6 C (99.7 F) Diastoli c (24hrs), Av mmHg, Min:62 mmHg, Max:71 mmHg Resp Av Min: 16 Max: 16 SpO2 Av.7 % Min: 92 % Max: 97 % Intake/Output Summary (Last 24 hours) at 03/15/14 0755 Last data filed at 03/15/14 0600 Gross per 24 hour Intake 6410 ml Output 6600 ml Net -190 ml Recent Laboratory Data: Lab Results Component Value Date WBC 8.72 03/15/2014 HCT 31.5 03/15/2014 PLT 181 03/15/2014 NA 137 03/15/2014 K 4.0 03/15/2014 CL 102 03/15/2014 HCO3 22.9 03/13/2013 BUN 8 03/15/2014 CR 0.77 03/15/2014 GLU 106 03/15/2014 Lab Results Component Value Date INRPT 1.63* 03/15/2014 Exam: General: Awake, alert, oriented, fluent speech Respiratory: Normal respiratory effort Motor/extremities: RLE: HANNA holding seal. + TA/EHL/GSC, SILT sa/mclain/sp/dp/t, palpable DP/PT pulses. A/P: Jorge L Cisneros is a 63 y.o. male POD3 s/p R SUSHIL IV/PO pain control PT/OT: WBAT RLE with posterior hip precautions DVT ppx: continue warfarin, goal INR 2-3 Abx: Ancef x 24 hrs, completed Maintain HANNA Labs: no abnormalities; continue daily CBC, BMP, INR X-rays: AP pelvis reviewed and demonstrates implants in appropriate position Received radiation for HO prophylaxis Dispo: anticipate d/c home when ok from PT standpoint - possibly tomorrow Ender Phelps MD Pager # [phone] I performed a history and physical examination of the patient and discussed his management with the resident. I reviewed the resident s note and agree with the documented findings and plan of care. ROSA M SMART MD [facility] [address] [place] [address] osa M Smart MD - 0 03/14/2014 7:27 AM PDT Orthopaedics Progress Note Subjective: Interval Hx: No events overnight. Pain improved this morning. Got irradiated for HO prophyl axis yesterday. Objective: 24 Hour Vital Min/Max: Pulse Av Min: 78 Max: 94 Systolic (24hrs), Av mmHg, Min:133 mmHg, Max:155 mmHg Temp Av.1 C (98.8 F) Min: 36.7 C (98.1 F) Max: 37.7 C (99.9 F) Diastoli c (24hrs), Av mmHg, Min:59 mmHg, Max:84 mmHg Resp Av Min: 16 Max: 16 SpO2 Av.7 % Min: 95 % Max: 97 % Intake/Output Summary (Last 24 hours) at 03/14/14 0727 Last data filed at 03/14/14 0600 Gross per 24 hour Intake 1395 ml Output 3505 ml Net -2110 ml Recent Laboratory Data: Lab Results Component Value Date WBC 9.33 03/14/2014 HCT 30.9 03/14/2014 PLT 172 03/14/2014 NA 136 03/14/2014 K 3.9 03/14/2014 CL 102 03/14/2014 HCO3 22.9 03/13/2013 BUN 9 03/14/2014 CR 0.65 03/14/2014 GLU 126 03/14/2014 Lab Results Component Value Date INRPT 1.28* 03/14/2014 Exam: General: Awake, alert, oriented, fluent speech Respiratory: Normal respiratory effort Motor/extremities: RLE: HANNA holding seal. + TA/EHL/GSC, SILT sa/mclain/sp/dp/t, palpable DP/PT pulses. A/P: Jorge L Cisneros is a 63 y.o. male POD2 s/p R SUSHIL IV/PO pain control PT/OT: WBAT RLE with posterior hip precautions DVT ppx: continue warfarin, goal INR 2-3 Abx: Ancef x 24 hrs, completed Maintain HANNA Labs: no abnormalities; continue daily CBC, BMP, INR X-rays: AP pelvis reviewed and demonstrates implants in appropriate position Received radiation for HO prophylaxis Dispo: PT recommending d/c to SNF, but patient fairly adamant that he wants to go home. Yuriy vega d/w YULIANA. Ender Phelps MD Pager # [phone] I performed a history and physical examination of the patient and discussed his management with the resident. I reviewed the resident s note and agree with the documented findings and plan of care. ROSA M SMART MD [facility] [id number] [facility] [place] [address] Ender Camara MD - 03/13/2014 8:08 AM PDT Orthopaedics Progress Note Subjective: Interval Hx: No events overnight. Pain reasonably well controlled. Has not been out of bed yet. Still has Mo. Objective: 24 Hour Vital Min/Max: Pulse Av.5 Min: 76 Max: 95 Systolic (24hrs), Av mmHg, Min:110 mmHg, Max:188 mm Hg Temp Av.8 C (98.3 F) Min: 36.4 C (97.5 F) Max: 37.3 C (99.1 F) Diastoli c (24hrs), Av mmHg, Min:57 mmHg, Max:74 mmHg Resp Av.8 Min: 9 Max: 21 SpO2 Av.7 % Min: 97 % Max: 100 % Intake/Output Summary (Last 24 hours) at 03/13/14 0808 Last data filed at 03/13/14 0409 Gross per 24 hour Intake 6255 ml Output 4050 ml Net 2205 ml Recent Laboratory Data: Lab Results Component Value Date WBC 8.58 03/13/2014 HCT 31.2 03/13/2014 PLT 171 03/13/2014 NA 138 03/13/2014 K 3.8 03/13/2014 CL 105 03/13/2014 HCO3 22.9 03/13/2013 BUN 12 03/13/2014 CR 0.68 03/13/2014 GLU 87 03/13/2014 Lab Results Component Value Date INRPT 1.19 03/13/2014 Exam: General: Awake, alert, oriented, fluent speech Respiratory: Normal respiratory effort Motor/extremities: RLE: HANNA holding seal. + TA/EHL/GSC, SILT sa/mclain/sp/dp/t, palpable DP/PT pulses. A/P: Jorge L Cisneros is a 63 y.o. male POD1 s/p R SUSHIL IV/PO pain control PT/OT: WBAT RLE with posterior hip precautions DVT ppx: restart warfarin with goal INR 2-3; no enoxaparin bridge Abx: Ancef x 24 hrs, completed Maintain HANNA Mo out when ambulatory Labs: no abnormalities; will recheck CBC tomorrow AM X-rays: AP pelvis reviewed and demonstrates implants in appropriate position Rad onc consulted for HO prophylaxis; will receive radiation treatment today Dispo: pending Ender Phelps MD Pager # [phone] Rosa M Cárdenas MD - 03/12/2014 5:36 PM [facility] ORTHOPAEDIC SURGERY POST OPERATIVE CHECK IDENTIFICATION: Patient: Jorge L Cisneros Author: ENDER PHELPS MD Date & Time: 03/12/2014 5:36 PM The patient is status post R SUSHIL, performed by Rosa M Smart and assistants The patient notes no complaints. VITAL SIGNS: Wt 118.4 kg (261 lb 0.4 oz), BP 122/64, Pulse 95, Temperature 36.4 C (97.5 F), RR 16, SpO2 98%, BMI 43.44 kg/(m^2). FOCUSED EXAM: General: Awake, alert, oriented, fluent speech Respiratory: Normal respiratory effort Motor/extremities: RLE: HANNA holding seal. + TA/EHL/GSC, SILT sa/mclain/sp/dp/t, palpable DP/PT pulses. ASSESSMENT & PLAN: Jorge L Cisneros is a 63 y.o. male, POD#0, s/p the above procedure, experiencing an appropriate post operative course. Postoperative Plan: IV/PO pain control PT/OT: WBAT RLE with posterior hip precautions DVT ppx: restart warfarin with goal INR 2-3; no enoxaparin bridge Abx: Ancef x 42 hrs Maintain HANNA Mo out when ambulatory Labs: CBC, BMP tomorrow AM X-rays: AP pelvis reviewed and demonstrates implants in appropriate position Rad onc consulted for HO prophylaxis; will receive radiation treatment tomorrow Ender Phelps MD Pager # [phone] I performed a history and physical examination of the patient and discussed his management with the resident. I reviewed the resident s note and agree with the documented findings and plan of care. ROSA M SMART MD [facility] [address] [facility] [place] [address] Karen Stephen MD - 03/12/2014 12:32 PM PDTID: 63 year old man with PMH of ankylosing spondylitis with complete spine involvement and bilateral hip involvement. He is s/p L hip arthroplasty and HO prophy laxis with radiation therapy on 04/2012. He now presents s/p total R hip arthroplasty with pr imary team requesting HO ppx. His surgery was completed this morning, 03/12/14. He will be scheduled for radiation treatment in our department tomorrow A formal consultation and discussion for consent will take place tomorrow prior to his meliton tment. Please page our department if there are any further questions documented in this enco unter Plan of Treatment Not on filedocumented as of this encounter Procedures + +--------+ + + + | Procedure Name | Priori | Date/Time | Associated Diagnosis | Comments | | | ty | | | | + +--------+ + + + | PROCEDURE NOTE | Routin | 09/26/2015 | | Results for this | | | e | 6:14 PM | | procedure are in the | | | | PST | | results section. | + +--------+ + + + | PROCEDURE NOTE | Routin | 09/26/2015 | | Results for this | | | e | 6:09 PM | | procedure are in the | | | | PST | | results section. | + +--------+ + + + | CAPILLARY BLOOD | Routin | 03/16/2014 | | Results for this | | GLUCOSE (NO CHG), | e | 7:32 AM | | procedure are in the | | POC | | PDT | | results section. | + +--------+ + + + | CBC (HEMOGRAM) ONLY | Urgent | 03/16/2014 | | Results for this | | | | 5:36 AM | | procedure are in the | | | | PDT | | results section. | + +--------+ + + + | INR | Routin | 03/16/2014 | | Results for this | | | e | 5:36 AM | | procedure are in the | | | | PDT | | results section. | + +--------+ + + + | BASIC METABOLIC SET | Urgent | 03/16/2014 | | Results for this | | (NA, K, CL, TCO2, | | 5:36 AM | | procedure are in the | | BUN, CR, GLU, CA) | | PDT | | results section. | + +--------+ + + + | CBC ONLY | Urgent | 03/16/2014 | | Results for this | | | | 5:36 AM | | procedure are in the | | | | PDT | | results section. | + +--------+ + + + | CAPILLARY BLOOD | Routin | 03/15/2014 | | Results for this | | GLUCOSE (NO CHG), | e | 8:53 PM | | procedure are in the | | POC | | PDT | | results section. | + +--------+ + + + | CAPILLARY BLOOD | Routin | 03/15/2014 | | Results for this | | GLUCOSE (NO CHG), | e | 3:19 PM | | procedure are in the | | POC | | PDT | | results section. | + +--------+ + + + | CAPILLARY BLOOD | Routin | 03/15/2014 | | Results for this | | GLUCOSE (NO CHG), | e | 8:02 AM | | procedure are in the | | POC | | PDT | | results section. | + +--------+ + + + | CBC (HEMOGRAM) ONLY | Urgent | 03/15/2014 | | Results for this | | | | 5:47 AM | | procedure are in the | | | | PDT | | results section. | + +--------+ + + + | INR | Urgent | 03/15/2014 | | Results for this | | | | 5:47 AM | | procedure are in the | | | | PDT | | results section. | + +--------+ + + + | BASIC METABOLIC SET | Urgent | 03/15/2014 | | Results for this | | (NA, K, CL, TCO2, | | 5:47 AM | | procedure are in the | | BUN, CR, GLU, CA) | | PDT | | results section. | + +--------+ + + + | CBC ONLY | Urgent | 03/15/2014 | | Results for this | | | | 5:47 AM | | procedure are in the | | | | PDT | | results section. | + +--------+ + + + | CAPILLARY BLOOD | Routin | 03/14/2014 | | Results for this | | GLUCOSE (NO CHG), | e | 9:55 PM | | procedure are in the | | POC | | PDT | | results section. | + +--------+ + + + | CAPILLARY BLOOD | Routin | 03/14/2014 | | Results for this | | GLUCOSE (NO CHG), | e | 4:05 PM | | procedure are in the | | POC | | PDT | | results section. | + +--------+ + + + | CAPILLARY BLOOD | Routin | 03/14/2014 | | Results for this | | GLUCOSE (NO CHG), | e | 7:20 AM | | procedure are in the | | POC | | PDT | | results section. | + +--------+ + + + | CBC (HEMOGRAM) ONLY | Urgent | 03/14/2014 | | Results for this | | | | 5:38 AM | | procedure are in the | | | | PDT | | results section. | + +--------+ + + + | INR | Urgent | 03/14/2014 | | Results for this | | | | 5:38 AM | | procedure are in the | | | | PDT | | results section. | + +--------+ + + + | BASIC METABOLIC SET | Urgent | 03/14/2014 | | Results for this | | (NA, K, CL, TCO2, | | 5:38 AM | | procedure are in the | | BUN, CR, GLU, CA) | | PDT | | results section. | + +--------+ + + + | CBC ONLY | Urgent | 03/14/2014 | | Results for this | | | | 5:38 AM | | procedure are in the | | | | PDT | | results section. | + +--------+ + + + | CAPILLARY BLOOD | Routin | 03/14/2014 | | Results for this | | GLUCOSE (NO CHG), | e | 12:01 AM | | procedure are in the | | POC | | PDT | | results section. | + +--------+ + + + | CAPILLARY BLOOD | Routin | 03/13/2014 | | Results for this | | GLUCOSE (NO CHG), | e | 7:56 PM | | procedure are in the | | POC | | PDT | | results section. | + +--------+ + + + | CAPILLARY BLOOD | Routin | 03/13/2014 | | Results for this | | GLUCOSE (NO CHG), | e | 10:13 AM | | procedure are in the | | POC | | PDT | | results section. | + +--------+ + + + | CAPILLARY BLOOD | Routin | 03/13/2014 | | Results for this | | GLUCOSE (NO CHG), | e | 9:04 AM | | procedure are in the | | POC | | PDT | | results section. | + +--------+ + + + | CBC (HEMOGRAM) ONLY | Urgent | 03/13/2014 | | Results for this | | | | 5:04 AM | | procedure are in the | | | | PDT | | results section. | + +--------+ + + + | INR | Routin | 03/13/2014 | | Results for this | | | e | 5:04 AM | | procedure are in the | | | | PDT | | results section. | + +--------+ + + + | BASIC METABOLIC SET | Urgent | 03/13/2014 | | Results for this | | (NA, K, CL, TCO2, | | 5:04 AM | | procedure are in the | | BUN, CR, GLU, CA) | | PDT | | results section. | + +--------+ + + + | CBC ONLY | Urgent | 03/13/2014 | | Results for this | | | | 5:04 AM | | procedure are in the | | | | PDT | | results section. | + +--------+ + + + | CAPILLARY BLOOD | Routin | 03/12/2014 | | Results for this | | GLUCOSE (NO CHG), | e | 11:34 PM | | procedure are in the | | POC | | PDT | | results section. | + +--------+ + + + | CAPILLARY BLOOD | Routin | 03/12/2014 | | Results for this | | GLUCOSE (NO CHG), | e | 7:55 PM | | procedure are in the | | POC | | PDT | | results section. | + +--------+ + + + | X-RAY PORTABLE | Urgent | 03/12/2014 | | Results for this | | PELVIS 1 VIEW | | 12:28 PM | | procedure are in the | | | | PDT | | results section. | + +--------+ + + + | CAPILLARY BLOOD | Routin | 03/12/2014 | | Results for this | | GLUCOSE (NO CHG), | e | 11:22 AM | | procedure are in the | | POC | | PDT | | results section. | + +--------+ + + + | LACTATE,POC ISTAT | Routin | 03/12/2014 | Osteoarthrosis, | Results for this | | | e | 10:19 AM | hip | procedure are in the | | | | PDT | | results section. | + +--------+ + + + | HEMOGLOBIN (DIANE), | Routin | 03/12/2014 | Osteoarthrosis, | Results for this | | POC | e | 10:19 AM | hip | procedure are in the | | | | PDT | | results section. | + +--------+ + + + | SODIUM (DIANE), POC | Routin | 03/12/2014 | Osteoarthrosis, | Results for this | | | e | 10:19 AM | hip | procedure are in the | | | | PDT | | results section. | + +--------+ + + + | POTASSIUM (DIANE), POC | Routin | 03/12/2014 | Osteoarthrosis, | Results for this | | | e | 10:19 AM | hip | procedure are in the | | | | PDT | | results section. | + +--------+ + + + | GLUCOSE (DIANE), POC | Routin | 03/12/2014 | Osteoarthrosis, | Results for this | | | e | 10:19 AM | hip | procedure are in the | | | | PDT | | results section. | + +--------+ + + + | VENOUS BLOOD GAS, | Routin | 03/12/2014 | Osteoarthrosis, | Results for this | | POC | e | 10:19 AM | hip | procedure are in the | | | | PDT | | results section. | + +--------+ + + + | CHLORIDE (DIANE), POC | Routin | 03/12/2014 | Osteoarthrosis, | Results for this | | | e | 10:19 AM | hip | procedure are in the | | | | PDT | | results section. | + +--------+ + + + | MATT IONIZED CA | Routin | 03/12/2014 | Osteoarthrosis, | Results for this | | (DIANE), POC | e | 10:19 AM | hip | procedure are in the | | | | PDT | | results section. | + +--------+ + + + | TOTAL HIP | Electi | 03/12/2014 | Osteoarthrosis, | | | ARTHROPLASTY | ve | 8:29 AM | unspecified whether | | | | Surgic | PDT | generalized or | | | | al | | localized, pelvic | | | | | | region and thigh | | + +--------+ + + + +---+--------+ | | | | | Specia | | | l | | | Needs | | | | | | Diabet | | | ic | +---+--------+ + +--------+ +---+ + | INR(PT), POC RESULT | Routin | 03/12/2014 | | Results for this | | | e | 8:21 AM | | procedure are in the | | | | PDT | | results section. | + +--------+ +---+ + | INR | Urgent | 03/12/2014 | | Results for this | | | | 8:12 AM | | procedure are in the | | | | PDT | | results section. | + +--------+ +---+ + | CAPILLARY BLOOD | Routin | 03/12/2014 | | Results for this | | GLUCOSE (NO CHG), | e | 7:35 AM | | procedure are in the | | POC | | PDT | | results section. | + +--------+ +---+ + documented in this encounter Results PROCEDURE NOTE (09/26/2015 6:14 PM PST)PROCEDURE NOTE (09/26/2015 6:09 PM PST) + + | Transcriptions | + + | Other, Faculty - 03/20/2014 7:58 AM PDT | + + CAPILLARY BLOOD GLUCOSE (NO CHG), POC (03/16/2014 7:32 AM PDT) + +---------+ + + + | Component | Value | Ref Range | Performed | Pathologist | | | | | At | Signature | + +---------+ + + + | BLOOD | 134 (H) | 60 - 99 mg/dL | [facility] [...] | [facility] | [address] | [place], [place] | | | [facility] POINT OF CARE | [facility] | [address] | | | TESTS | | | | + + + + + CBC (HEMOGRAM) ONLY (03/16/2014 5:36 AM PDT) + + + + + + | Component | Value | Ref Range | Performed | Pathologist | | | | | At | Signature | + + + + + + | WHITE CELL | 9.19 | 4.40 - 11.00 | [facility] | | | COUNT | | K/cu mm | LABORATORY | | | | | | SERVICES, | | | | | | CORE | | + + + + + + | RED CELL | 3.78 (L) | 4.50 - 6.00 | [facility] | | | COUNT | | M/cu mm | LABORATORY | | | | | | SERVICES, | | | | | | CORE | | + + + + + + | HEMOGLOBIN | 11.0 (L) | 13.5 - 17.5 | [facility] | | | | | g/dL | LABORATORY | | | | | | SERVICES, | | | | | | CORE | | + + + + + + | HEMATOCRIT | 31.5 (L) | 41.0 - 53.0 % | [facility] | | | | | | LABORATORY | | | | | | SERVICES, | | | | | | CORE | | + + + + + + | MCV | 83.3 | 80.0 - 96.0 fL | [facility] | | | | | | LABORATORY | | | | | | SERVICES, | | | | | | CORE | | + + + + + + | MCHC | 34.9 | 33.0 - 35.5 | [facility] | | | | | g/dL | LABORATORY | | | | | | SERVICES, | | | | | | CORE | | + + + + + + | RDW SD | 41.4 | 35.1 - 46.3 fL | [facility] | | | | | | LABORATORY | | | | | | SERVICES, | | | | | | CORE | | + + + + + + | PLATELET | 231 | 150 - 400 K/cu | [facility] [...] LABORATORY | | | | | | [place], | | | | | | CORE | | + + + + + + + + | Specimen | + + | Blood - Blood | + + + + + + + | Performing | Address | City/State/Zipcode | Phone Number | | Organization | | | | + + + + + | [facility] | [address] | [place] [address] | | | SERVICES, CORE | [address] | | | + + + + + INR (03/16/2014 5:36 AM PDT) + + + + + + | Component | Value | Ref Range | Performed | Pathologist | | | | | At | Signature | + + + + + + | INR | 2.32 (H) | 0.90 - 1.20 INR | [...] ranges for full anticoagulation: INR for | [facility] | | Venous Thromboembolism (2.0 - 3.0) INR INR | LABORATORY | | for most patients with mech. valves (2.5 - 3.5) INR | [facility] | + + + + + + + + | Performing | Address | City/State/Zipcode | Phone Number | | Organization | | | | + + + + + | [facility] | [address] | [place] [address] | | | SERVICES, NAY | [address] | | | + + + + + BASIC METABOLIC SET (NA, K, CL, TCO2, BUN, CR, GLU, CA) (03/16/2014 5:36 AM PDT) + +---------+ + + + | Component | Value | Ref Range | Performed | Pathologist | | | | | At | Signature | + +---------+ + + + | GLUCOSE, | 122 (H) | 60 - 99 mg/dL | [facility] | | | PLASMA | | | LABORATORY | | | (LAB) | | | SERVICES, | | | | | | CORE | | + +---------+ + + + | BUN, PLASMA | 9 | 6 - 20 mg/dL | [facility] | | | (LAB) | | | LABORATORY | | | | | | SERVICES, | | | | | | CORE | | + +---------+ + + + | CREATININE | 0.73 | 0.70 - 1.30 | [facility] | | | PLASMA | | mg/dL | LABORATORY | | | (LAB) | | | SERVICES, | | | | | | CORE | | + +---------+ + + + | EGFR | >60 | >60 mL/min | [facility] | | | - | | | LABORATORY | | | [facility] | | | SERVICES, | | | | | | CORE | | + +---------+ + + + | EGFR NON | >60 | >60 mL/min | [facility] | | | -[facility] | | | LABORATORY | | | [facility] | | | SERVICES, | | | | | | CORE | | + +---------+ + + + | SODIUM, | 135 (L) | 136 - 145 | [facility] | | | PLASMA | | mmol/L | LABORATORY | | | (LAB) | | | SERVICES, | | | | | | CORE | | + +---------+ + + + | POTASSIUM, | 4.1 | 3.4 - 5.0 | [facility] | | | PLASMA | | mmol/L | LABORATORY | | | (LAB) | | | SERVICES, | | | | | | CORE | | + +---------+ + + + | CHLORIDE, | 100 | 97 - 108 mmol/L | [facility] [...] +---------+ + + + | CALCIUM, | 8.5 (L) | 8.6 - 10.2 | [facility] | | | PLASMA | | mg/dL | LABORATORY | | | (LAB) | | | SERVICES, | | | | | | CORE | | + +---------+ + + + | ANION GAP | 7 | mmol/L | [facility] | | | [...] | | - Rapidly changing kidney function | | + + + + + + + + | Performing | Address | City/State/Zipcode | Phone Number | | Organization | | | | + + + + + | [facility] | [address] | [place] [address] | | | SERVICES, CORE | [address] | | | + + + + + CAPILLARY BLOOD GLUCOSE (NO CHG), POC (03/15/2014 8:53 PM PDT) + +---------+ + + + | Component | Value | Ref Range | Performed | Pathologist | | | | | At | Signature | + +---------+ + + + | BLOOD | 288 (H) | 60 - 99 mg/dL | [facility] - | [...] + + | Performing | Address | City/State[facility] | Phone Number | | Organization | | | | + + + + + | [facility] | [address] | [place], [place] | | | [place] [employer] | [facility] | [address] | | | TESTS | | | | + + + + + CAPILLARY BLOOD GLUCOSE (NO CHG), POC (03/15/2014 3:19 PM PDT) + +---------+ + + + | Component | Value | Ref Range | Performed | Pathologist | | | | | At | Signature | + +---------+ + + + | BLOOD | 146 (H) | 60 - 99 mg/dL | [facility] - | [...] | [facility] | [address] | [place], [place] | | | [place] | [facility] | [address] | | | TESTS | | | | + + + + + CAPILLARY BLOOD GLUCOSE (NO CHG), POC (03/15/2014 8:02 AM PDT) + +---------+ + + + | Component | Value | Ref Range | Performed | Pathologist | | | | | At | Signature | + +---------+ + + + | BLOOD | 147 (H) | 60 - 99 mg/dL | [facility] - | | | GLUCOSE, | | [...] + | [facility] | [address] | [place], [place] | | | JO[facility] POINT OF CARE | [address] | [address] | | | TESTS | | | | + + + + + CBC (HEMOGRAM) ONLY (03/15/2014 5:47 AM PDT) + + + + + + | Component | Value | Ref Range | Performed | Pathologist | | | | | At | Signature | + + + + + + | WHITE CELL | 8.72 | 4.40 - 11.00 | [facility] | | | COUNT | | K/cu mm | LABORATORY | | | | | | SERVICES, | | | | | | CORE | | + + + + + + | RED CELL | 3.72 (L) | 4.50 - 6.00 | [facility] | | | COUNT | | M/cu mm | LABORATORY | | | | | | SERVICES, | | | | | | CORE | | + + + + + + | HEMOGLOBIN | 11.0 (L) | 13.5 - 17.5 | [facility] | | | | | g/dL | LABORATORY | | | | | | SERVICES, | | | | | | CORE | | + + + + + + | HEMATOCRIT | 31.5 (L) | 41.0 - 53.0 % | [facility] | | | | | | LABORATORY | | | | | | SERVICES, | | | | | | CORE | | + + + + + + | MCV | 84.7 | 80.0 - 96.0 fL | [facility] | | | | | | LABORATORY | | | | | | SERVICES, | | | | | | CORE | | + + + + + + | MCHC | 34.9 | 33.0 - 35.5 | [facility] | | | | | g/dL | LABORATORY | | | | | | SERVICES, | | | | | | CORE | | + + + + + + | RDW SD | 42.2 | 35.1 - 46.3 fL | [facility] | | | | | | LABORATORY | | | | | | SERVICES, | | | | | | CORE | | + + + + + + | PLATELET | 181 | 150 - 400 K/cu | [facility] [...] [facility] | [address] | [place] [address] | | | SERVICES, CORE | [address] | | | + + + + + BASIC METABOLIC SET (NA, K, CL, TCO2, BUN, CR, GLU, CA) (03/15/2014 5:47 AM PDT) + +---------+ + + + | Component | Value | Ref Range | Performed | Pathologist | | | | | At | Signature | + +---------+ + + + | GLUCOSE, | 106 (H) | 60 - 99 mg/dL | [facility] | | | PLASMA | | | LABORATORY | | | (LAB) | | | SERVICES, | | | | | | CORE | | + +---------+ + + + | BUN, PLASMA | 8 | 6 - 20 mg/dL | [facility] | | | (LAB) | | | LABORATORY | | | | | | SERVICES, | | | | | | CORE | | + +---------+ + + + | CREATININE | 0.77 | 0.70 - 1.30 | [facility] | | | PLASMA | | mg/dL | LABORATORY | | | (LAB) | | | SERVICES, | | | | | | CORE | | + +---------+ + + + | EGFR | >60 | >60 mL/min | [facility] | | | - | | | LABORATORY | | | [facility] | | | SERVICES, | | | | | | CORE | | + +---------+ + + + | EGFR NON | >60 | >60 mL/min | [facility] | | | -[facility] | | | LABORATORY | | | [facility] | | | SERVICES, | | | | | | CORE | | + +---------+ + + + | SODIUM, | 137 | 136 - 145 | [facility] | | | PLASMA | | mmol/L | LABORATORY | | | (LAB) | | | SERVICES, | | | | | | CORE | | + +---------+ + + + | POTASSIUM, | 4.0 | 3.4 - 5.0 | [facility] | [...] +---------+ + + + | CALCIUM, | 8.3 (L) | 8.6 - 10.2 | [facility] | | | PLASMA | | mg/dL | LABORATORY | | | (LAB) | | | SERVICES, | | | | | | CORE | | + +---------+ + + + | ANION GAP | 7 | mmol/L | [facility] | | | [...] | Interpretive Information: <60 mL/min/1.73 sq | [facility] | | m Chronic Kidney Disease <15 [...] | | - Rapidly changing kidney function | | + + + + + + + + | Performing | Address | City/State/Zipcode | Phone Number | | Organization | | | | + + + + + | [facility] | [address] | [place] [address] | | | [facility] | [address] | | | + + + + + INR (03/15/2014 5:47 AM PDT) + + + + + + | Component | Value | Ref Range | Performed | Pathologist | | | | | At | Signature | + + + + + + | INR | 1.63 (H) | 0.90 - 1.20 INR | [...] + + + + + | [facility] | [address] | [place] [address] | | | SERVICES, NAY | [address] | | | + + + + + CAPILLARY BLOOD GLUCOSE (NO CHG), POC (03/14/2014 9:55 PM PDT) + +---------+ + + + | Component | Value | Ref Range | Performed | Pathologist | | | | | At | Signature | + +---------+ + + + | BLOOD | 141 (H) | 60 - 99 mg/dL | [facility] - | [...] + + + + + | [facility] | [address] | [place], [place] | | | [facility] | [facility] | [address] | | | TESTS | | | | + + + + + CAPILLARY BLOOD GLUCOSE (NO CHG), POC (03/14/2014 4:05 PM PDT) + +---------+ + + + | Component | Value | Ref Range | Performed | Pathologist | | | | | At | Signature | + +---------+ + + + | BLOOD | 122 (H) | 60 - 99 mg/dL | [facility] - | | | GLUCOSE, | | [...] + | [facility] | [address] | [place], [place] | | | [facility] [employer] | [facility] | [address] | | | TESTS | | | | + + + + + CAPILLARY BLOOD GLUCOSE (NO CHG), POC (03/14/2014 7:20 AM PDT) + +---------+ + + + | Component | Value | Ref Range | Performed | Pathologist | | | | | At | Signature | + +---------+ + + + | BLOOD | 126 (H) | 60 - 99 mg/dL | [facility] - | [...] | [facility] | [address] | [place], [place] | | | [place] | [address] | [address] | | | TESTS | | | | + + + + + CBC (HEMOGRAM) ONLY (03/14/2014 5:38 AM PDT) + + + + + + | Component | Value | Ref Range | Performed | Pathologist | | | | | At | Signature | + + + + + + | WHITE CELL | 9.33 | 4.40 - 11.00 | [facility] | | | COUNT | | K/cu mm | LABORATORY | | | | | | SERVICES, | | | | | | CORE | | + + + + + + | RED CELL | 3.64 (L) | 4.50 - 6.00 | [facility] | | | COUNT | | M/cu mm | LABORATORY | | | | | | SERVICES, | | | | | | CORE | | + + + + + + | HEMOGLOBIN | 10.8 (L) | 13.5 - 17.5 | [facility] | | | | | g/dL | LABORATORY | | | | | | SERVICES, | | | | | | CORE | | + + + + + + | HEMATOCRIT | 30.9 (L) | 41.0 - 53.0 % | [facility] | | | | | | LABORATORY | | | | | | SERVICES, | | | | | | CORE | | + + + + + + | MCV | 84.9 | 80.0 - 96.0 fL | [facility] | | | | | | LABORATORY | | | | | | SERVICES, | | | | | | CORE | | + + + + + + | MCHC | 35.0 | 33.0 - 35.5 | [facility] | [...] + + + + | PLATELET | 172 | 150 - 400 K/cu | [facility] | | | COUNT | | mm | LABORATORY | | | | | | SERVICES, | | | | | | CORE | | + + + + + + | MPV | 9.4 [...] | + + + + + | [facility] | [address] | [place] [address] | | | SERVICES, CORE | [address] | | | + + + + + BASIC METABOLIC SET (NA, K, CL, TCO2, BUN, CR, GLU, CA) (03/14/2014 5:38 AM PDT) + + + + + + | Component | Value | Ref Range | Performed | Pathologist | | | | | At | Signature | + + + + + + | GLUCOSE, | 130 (H) | 60 - 99 mg/dL | [facility] | | | PLASMA | | | LABORATORY | | | (LAB) | | | SERVICES, | | | | | | CORE | | + + + + + + | BUN, PLASMA | 9 | 6 - 20 mg/dL | [facility] | | | (LAB) | | | LABORATORY | | | | | | SERVICES, | | | | | | CORE | | + + + + + + | CREATININE | 0.65 (L) | 0.70 - 1.30 | [facility] | | | PLASMA | | mg/dL | LABORATORY | | | (LAB) | | | SERVICES, | | | | | | CORE | | + + + + + + | EGFR | >60 | >60 mL/min | [facility] | | | - | | | LABORATORY | | | [facility] | | | SERVICES, | | | [...] + + + + | CHLORIDE, | 102 | 97 - 108 mmol/L | [facility] | | | PLASMA | | | LABORATORY | | | (LAB) | | | SERVICES, | | | | | | CORE | | + + + + + + | TOTAL CO2, | 30 | 21 - 32 mmol/L | [facility] [...] + + + | ANION GAP | 4 | mmol/L | [facility] | | | [...] | | - Rapidly changing kidney function | | + + + + + + + + | Performing | Address | City/State/Zipcode | Phone Number | | Organization | | | | + + + + + | [facility] | [address] | [place] [address] | | | SERVICES, CORE | [address] | | | + + + + + INR (03/14/2014 5:38 AM PDT) + + + + + + | Component | Value | Ref Range | Performed | Pathologist | | | | | At | Signature | + + + + + + | INR | 1.28 (H) | 0.90 - 1.20 INR | [...] + + + + + | [facility] | [address] | [place] [address] | | | SERVICES, CORE | [address] | | | + + + + + CAPILLARY BLOOD GLUCOSE (NO CHG), POC (03/14/2014 12:01 AM PDT) + +---------+ + + + | Component | Value | Ref Range | Performed | Pathologist | | | | | At | Signature | + +---------+ + + + | BLOOD | 132 (H) | 60 - 99 mg/dL | [facility] - | | | GLUCOSE, | | [...] + | [facility] | [address] | [place], [place] | | | JO[facility] POINT OF CARE | [address] | [address] | | | TESTS | | | | + + + + + CAPILLARY BLOOD GLUCOSE (NO CHG), POC (03/13/2014 7:56 PM PDT) + +---------+ + + + | Component | Value | Ref Range | Performed | Pathologist | | | | | At | Signature | + +---------+ + + + | BLOOD | 103 (H) | 60 - 99 mg/dL | [facility] - | [...] | [facility] | [address] | [place], [place] | | | [place] | [address] | [address] | | | TESTS | | | | + + + + + CAPILLARY BLOOD GLUCOSE (NO CHG), POC (03/13/2014 10:13 AM PDT) + +---------+ + + + | Component | Value | Ref Range | Performed | Pathologist | | | | | At | Signature | + +---------+ + + + | BLOOD | 106 (H) | 60 - 99 mg/dL | [facility] - | [...] | [facility] | [address] | [place], [place] | | | [facility] POINT OF CARE | [address] | [address] | | | TESTS | | | | + + + + + CAPILLARY BLOOD GLUCOSE (NO CHG), POC (03/13/2014 9:04 AM PDT) + +-------+ + + + | Component | Value | Ref Range | Performed | Pathologist | | | | | At | Signature | + +-------+ + + + | BLOOD | 96 | 60 - 99 mg/dL | [facility] - | [...] + + + | [facility] | [address] | [place], [place] | | | [facility] | [address] | [address] | | | TESTS | | | | + + + + + CBC (HEMOGRAM) ONLY (03/13/2014 5:04 AM PDT) + + + + + + | Component | Value | Ref Range | Performed | Pathologist | | | | | At | Signature | + + + + + + | WHITE CELL | 8.58 | 4.40 - 11.00 | [facility] | | | COUNT | | K/cu mm | LABORATORY | | | | | | SERVICES, | | | | | | CORE | | + + + + + + | RED CELL | 3.60 (L) | 4.50 - 6.00 | [facility] | | | COUNT | | M/cu mm | LABORATORY | | | | | | SERVICES, | | | | | | CORE | | + + + + + + | HEMOGLOBIN | 10.4 (L) | 13.5 - 17.5 | [facility] | | | | | g/dL | LABORATORY | | | | | | SERVICES, | | | | | | CORE | | + + + + + + | HEMATOCRIT | 31.2 (L) | 41.0 - 53.0 % | [facility] | | | | | | LABORATORY | | | | | | SERVICES, | | | | | | CORE | | + + + + + + | MCV | 86.7 | 80.0 - 96.0 fL | [facility] | | | | | | LABORATORY | | | | | | SERVICES, | | | | | | CORE | | + + + + + + | MCHC | 33.3 | 33.0 - 35.5 | [facility] | | | | | g/dL | LABORATORY | | | | | | SERVICES, | | | | | | CORE | | + + + + + + | RDW SD | 43.7 | 35.1 - 46.3 fL | [facility] | | | | | | LABORATORY | | | | | | SERVICES, | | | | | | CORE | | + + + + + + | PLATELET | 171 | 150 - 400 K/cu | [facility] | | | COUNT | | mm | LABORATORY | | | | | | SERVICES, | | | | | | CORE | | + + + + + + | MPV | 9.5 (L) | 9.7 - 12.3 fL | [...] [facility] | [address] | [place] [address] | | | SERVICES, CORE | [address] | | | + + + + + INR (03/13/2014 5:04 AM PDT) + +-------+ + + + [...] [facility] | [address] | [place] [address] | | | SERVICES, CORE | [address] | | | + + + + + BASIC METABOLIC SET (NA, K, CL, TCO2, BUN, CR, GLU, CA) (03/13/2014 5:04 AM PDT) + + + + + + | Component | Value | Ref Range | Performed | Pathologist | | | | | At | Signature | + + + + + + | GLUCOSE, | 87 | 60 - 99 mg/dL | [facility] | | | PLASMA | | | LABORATORY | | | (LAB) | | | SERVICES, | | | | | | CORE | | + + + + + + | BUN, PLASMA | 12 | 6 - 20 mg/dL | [facility] [...] | | | LABORATORY | | | [place] | | | SERVICES, | | | [...] + + + + | POTASSIUM, | 3.8 | 3.4 - 5.0 | [facility] | | | PLASMA | | mmol/L | LABORATORY | | | (LAB) | | | SERVICES, | | | | | | CORE | | + + + + + + | CHLORIDE, | 105 | 97 - 108 mmol/L | [facility] | | | PLASMA | | | LABORATORY | | | (LAB) | | | SERVICES, | | | | | | CORE | | + + + + + + | TOTAL CO2, | 27 | 21 - 32 mmol/L | [facility] [...] + + + | ANION GAP | 6 | mmol/L | [facility] | | | [...] | | - Rapidly changing kidney function | | + + + + + + + + | Performing | Address | City/State/Zipcode | Phone Number | | Organization | | | | + + + + + | [facility] | [address] | [place] [address] | | | SERVICES, CORE | [address] | | | + + + + + CAPILLARY BLOOD GLUCOSE (NO CHG), POC (03/12/2014 11:34 PM PDT) + +---------+ + + + | Component | Value | Ref Range | Performed | Pathologist | | | | | At | Signature | + +---------+ + + + | BLOOD | 160 (H) | 60 - 99 mg/dL | [facility] - | [...] | [facility] | [address] | [place], [place] | | | [place] | [address] | [address] | | | TESTS | | | | + + + + + CAPILLARY BLOOD GLUCOSE (NO CHG), POC (03/12/2014 7:55 PM PDT) + +---------+ + + + | Component | Value | Ref Range | Performed | Pathologist | | | | | At | Signature | + +---------+ + + + | BLOOD | 124 (H) | 60 - 99 mg/dL | [facility] - | [...] + | [facility] | [address] | [place], [place] | | | [place] | [address] | [address] | | | TESTS | | | | + + + + + X-RAY PORTABLE PELVIS 1 VIEW (03/12/2014 12:28 PM PDT) + + + + + + | Component | Value | Ref Range | Performed | Pathologist | | | | | At | Signature | + + + + + + | X-RAY | STUDY: CA PELVIS 1 VIEW | | | | | PORTABLE | 03/12/14 12:28:00 | | | | | PELVIS 1 | COMPARISON: 08/11/12. | | | | | VIEW | HISTORY: Arthroplasty. | | | | | | FINDINGS: A new | | | | | | non-cemented right total | | | | | | hip arthroplasty has | | | | | | been placed which is | | | | | | innormal alignment. The | | | | | | hardware is intact. No | | | | | | periprosthetic fracture | | | | | | isobserved. The left | | | | | | total hip arthroplasty | | | | | | is in unchanged | | | | | | alignment with | | | | | | intacthardware. 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 IMPRESSION: | | | | | | Right total hip | | | | | | arthroplasty in normal | | | | | | alignment with no acute | | | | | | fracture. Stable left | | | | | | total hip arthroplasty. | | | | | | Findings compatible with | | | | | | ankylosing spondylitis. | | | | | | Attending Radiologists: | | | | | | GRADY GUTIERREZ, | | | | | | MDAuthor: GRADY | | | | | | MD MATT I have | | | | | | personally viewed this | | | | | | procedure/exam, reviewed | | | | | | this report, and | | | | | | madechanges to it where | | | | | | appropriate. | | | | | | Final/Electronically | | | | | | signed / GRADY | | | | | | MATT 03/12/2014 | | | | | | 12:59 PM | | | | + + + + + + + + | Specimen | + + | | + + + +---------+ + + | Performing | Address | City/State/Zipcode | Phone Number | | Organization | | | | + +---------+ + + | [facility] DEPARTMENT OF | | | | | RADIOLOGY | | | | + +---------+ + + CAPILLARY BLOOD GLUCOSE (NO CHG), POC (03/12/2014 11:22 AM PDT) + +---------+ + + + | Component | Value | Ref Range | Performed | Pathologist | | | | | At | Signature | + +---------+ + + + | BLOOD | 179 (H) | 60 - 99 mg/dL | [facility] - | [...] | [facility] | [address] | [place], [place] | | | [facility] | [address] | [address] | | | TESTS | | | | + + + + + LACTATE (DIANE), POC (03/12/2014 10:19 AM PDT) + +-------+ + + + | Component | Value | Ref Range | Performed | Pathologist | | | | | At | Signature | + +-------+ + + + | LACTATE | 1.6 | 0.5 - 2.2 | [facility] - | | | VENOUS, POC | | mmol/L | [facility] | [...] + + + + | [facility] | [address] | [place], [place] | | | [facility] | [address] | [address] | | | TESTS | | | | + + + + + SODIUM (DIANE), POC (03/12/2014 10:19 AM PDT) + +-------+ + + + | Component | Value | Ref Range | Performed | Pathologist | | | | | At | Signature | + +-------+ + + + | SODIUM, POC | [...] + + + | [facility] | [address] | [place], [place] | | | [facility] | [address] | [address] | | | TESTS | | | | + + + + + ELTON (LORETTA GONSALEZ (03/12/2014 10:19 AM PDT) + +-------+ + + + | Component | Value | Ref Range | Performed | Pathologist | | | | | At | Signature | + +-------+ + + + | POTASSIUM, | 5.0 | 3.4 - 5.0 | [facility] [...] | [facility] | [address] | [place], [place] | | | [facility] | [address] | [address] | | | TESTS | | | | + + + + + GLUCOSE (DIANE), POC (03/12/2014 10:19 AM PDT) + +---------+ + + + | Component | Value | Ref Range | Performed | Pathologist | | | | | At | Signature | + +---------+ + + + | GLUCOSE, | 136 (H) | 60 - 99 mg/dL | [facility] | | | POC | | | [facility] | | | | | | BABAR [...] + | [facility] | [address] | [place], [place] | | | [facility] | [facility] | [address] | | | TESTS | | | | + + + + + CHLORIDE (DIANE) POC (03/12/2014 10:19 AM PDT) + +-------+ + + + | Component | Value | Ref Range | Performed | Pathologist | | | | | At | Signature | + +-------+ + + + | CHLORIDE, | 105 | 97 - 108 mmol/L | [facility] - | | | POC | | | [facility] | | | | | | BABAR [...] + | [facility] | [address] | [place], [place] | | | [facility] | [facility] | [address] | | | TESTS | | | | + + + + + MATT IONIZED CA (DIANE)LORETTA (03/12/2014 10:19 AM PDT) + +-------+ + + + | Component | Value | Ref Range | Performed | Pathologist | | | | | At | Signature | + +-------+ + + + | MATT | 1.21 | 1.14 - 1.32 | [facility] [...] | [facility] | [address] | [place], [place] | | | [place] [facility] [place] | [address] | [address] | | | TESTS | | | | + + + + + HEMOGLOBIN (DIANE), POC (03/12/2014 10:19 AM PDT) + +-------+ + + + | Component | Value | Ref Range | Performed | Pathologist | | | | | At | Signature | + +-------+ + + + | TOTAL | 14.3 | 13.5 - 17.5 | [facility] - | | | HEMOGLOBIN, | | g/dL | [facility] | | | POC | | | [facility] | | | | | | OF CARE | | | | | | TESTS | | + +-------+ + + + | OXYHEMOGLOB | 97.8 | % | [facility] | | | IN, POC | | | [facility] | | | | | | [facility] | | | | | | OF CARE | | | | | | TESTS | | + +-------+ + + + | CARBOXYHEMO | 2.0 | % | [facility] | | | GLOBIN, POC | | | [facility] | | | | | | [facility] | | | | | | OF CARE | | | | | | TESTS | | + +-------+ + + + | METHEMOGLOB | 0.6 | % | [facility] | | | IN, POC | | | [facility] | | | | | | JOI, POINT | | | | | | OF CARE | | | | | | TESTS | | + +-------+ + + + | HEMATOCRIT, | 44.0 | 41.0 - 53.0 % | [facility] [...] + | [facility] | [address] | [place], [place] | | | [place] | [facility] | [address] | | | TESTS | | | | + + + + + VENOUS BLOOD GAS, POC (03/12/2014 10:19 AM PDT) + + + + + + | Component | Value | Ref Range | Performed | Pathologist | | | | | At | Signature | + + + + + + | PH VENOUS, | 7.27 (L) | 7.35 - 7.45 | [facility] | | | POC | | | [facility] | | | | | | [facility] | | | | | | OF CARE | | | | | | TESTS | | + + + + + + | PO2 VENOUS, | 222 (H) | 30 - 55 mmHg | [facility] | | | POC | | | [facility] | | | | | | [facility] | | | | | | OF CARE | | | | | | TESTS | | + + + + + + | PCO2 | 57 (H) | 35 - 50 mmHg | [facility] | | | VENOUS, POC | | | [facility] | | | | | | [facility] | | | | | | OF CARE | | | | | | TESTS | | + + + + + + | O2 SAT | 100.4 | % | [facility] - | | | VENOUS, POC | | | [facility] | | | | | | [facility] | | | | | | OF CARE | | | | | | TESTS | | + + + + + + | HCO3 | 26.2 | 22 - 28 mmol/L | [facility] | | | VENOUS, POC | | | [facility] | | | | | | [facility] | | | | | | OF CARE | | | | | | TESTS | | + + + + + + | BASE EXCESS | -0.6 | | [facility] | | | VENOUS, | | | [facility] | | | [...] + | [facility] | [address] | [place], [place] | | | [facility] [place] [facility] [place] | [facility] | [address] | | | TESTS | | | | + + + + + INR(PT), POC RESULT (03/12/2014 8:21 AM PDT) + +-------+ + + + | Component | Value | Ref Range | Performed | Pathologist | | | | | At | Signature | + +-------+ + + + | PROTHROMBIN | 1.2 | 0.9 - 1.2 | | | | TIME | | | | | | (INR), POC | | | | | + +-------+ + + + INR (03/12/2014 8:12 AM PDT) + +-------+ + + + | Component | Value | Ref Range | Performed | Pathologist | | | | | At | Signature | + +-------+ + + + | INR | 1.14 | 0.90 - 1.20 INR | [facility] [...] + + + + + | [facility] | [address] | [place] [address] | | | SERVICES, CORE | [address] | | | + + + + + CAPILLARY BLOOD GLUCOSE (NO CHG), POC (03/12/2014 7:35 AM PDT) + +---------+ + + + | Component | Value | Ref Range | Performed | Pathologist | | | | | At | Signature | + +---------+ + + + | BLOOD | 156 (H) | 60 - 99 mg/dL | [facility] - | | | GLUCOSE, | | [...] + + + | [facility] | [address] | [place], [place] | | | [facility] OF [facility] | [address] | [address] | | | TESTS | | | | + + + + + documented in this encounter Visit Diagnoses + + | Diagnosis | + + | Osteoarthrosis, unspecified whether generalized or localized, pelvic region and thigh | + + documented in this encounter Administered Medications + +--------+ +------+------+--------+ | Medication Order | MAR | Action | Dose | Rate | Site | | | Action | Date | | | | + +--------+ +------+------+--------+ | bupivacaine 0.25% w/ EPINEHrine | Given | 03/12/20 | | | Right | | 1:200K-ketorolac injection | | 14 10:47 | | | Hip | | INTRAPROCEDURE PRN, Starting Mon | | AM PDT | | | | | 03/12/14 at 1047, Until Mon | | | | | | | 03/12/14 at 1113 | | | | | | + +--------+ +------+------+--------+ +---+---+ | | | +---+---+ + +-------+ + +---+--------+ | NaCl 0.9 % irrigation | Given | 03/12/20 | 1,000 mL | | Right | | INTRAPROCEDURE PRN, Starting Mon | | 14 9:53 | | | Hip | | 03/12/14 at 0953, Until Mon | | AM PDT | | | | | 03/12/14 at 1113 | | | | | | + +-------+ + +---+--------+ +---+---+ | | | +---+---+ documented in this encounter"
--- OUTSIDE RECORDS SUMMARY | ~2019-01-28 | XMS | Encounter Summary ---
Demographics + + + | Address | [address] | | | [place] [address] | + + + | Home Phone | | + + + | Preferred Language | Unknown | + + + | Marital Status | Single | + + + | Sikh Affiliation | BAP | + + + | Race | or | + + + | Ethnic Group | Not or | + + + Author + + + | Author | [facility] | + + + | Organization | [facility] | + + + | Address [...] Team Providers + +------+ + | Care Leather Tooler Name | Role | Phone | + +------+ + | Gracie Mariano MD | PCP | Unavailable | + +------+ + Encounter Details +--------+ + + + + | Date | Type | Department | Care Team | Description | +--------+ + + + + | 12/13/ | Telephone | [facility]ive [facility] | Adriano Chavez, | | | 2013 | | [facility] [address] | | | | | | [address] | | | | | | Mailcode: Center | | | | | | [facility] and | | | | | | [facility] [address] | | | | | | [place], [place] | | | | | | [address] | | | | | | [phone] | | | +--------+ + + + [...]
--- OUTSIDE RECORDS SUMMARY | ~2019-01-28 | XMS | Encounter Summary ---
Demographics + + + | Address | [address] | | | [place] [address] | + + + | Home Phone | | + + + | Preferred Language | Unknown | + + + | Marital Status | Single | + + + | Gnosticism Affiliation | BAP | + + + | Race | or | + + + | Ethnic Group | Not or | + + + Author + + + | Author | [facility] | + + + | Organization | [facility] | + + + | [...] Team Providers + +------+ + | Care Assembler Molded Frames Name | Role | Phone | + +------+ + | Ino Ace MD | PCP | Unavailable | + +------+ + Encounter Details +--------+ + + + + | Date | Type | Department | Care Team | Description | +--------+ + + + + | 05/23/ | Wallpaper Scraper | Orthopaedics at | Jorge Walker MD | Hip Pain (Primary | | 2009 | | [facility] [address] | [address] | Dx) | | | | [facility] | [facility] | | | | | Mailcode: [id number] | [place], [place] | | | | | [facility] | [address] | | | | | [place], [place] | [phone] | | | | | [address] | | | | | | [phone] | | | +--------+ + + + [...] filedocumented as of this encounter Results X-RAY HIP 2 VIEWS RIGHT W/ PELVIS 1 VIEW (05/23/2009 11:24 AM PDT) + + + + + + | Component | Value | Ref Range | Performed | Pathologist | | | | | At | Signature | + + + + + + | X-RAY HIP 2 | TWO-VIEW RIGHT HIP WITH | | | | | VIEWS | ONE-VIEW | | | | | RIGHT W/ | PELVIS: 05/23/2009 | | | | | PELVIS 1 | Dictated | | | | | VIEW | 05/23/2009COMPARISON: | | | | | | None.FINDINGS: There | | | | | | is severe joint space | | | | | | narrowing at both hip | | | | | | jointswith subchondral | | | | | | lucency suspicious for | | | | | | erosions. There | | | | | | isrelatively mild | | | | | | osteophytosis given the | | | | | | amount of joint | | | | | | spacenarrowing. 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 Mild | | | | | | irregularity is present | | | | | | inboth ischial | | | | | | tuberosities, greater on | | | | | | the right, in the | | | | | | expectedlocation of the | | | | | | hamstring | | | | | | origins.IMPRESSION:Findi | | | | | | ngs typical of | | | | | | ankylosing spondylitis, | | | | | | with advanced | | | | | | bilateralhip arthropathy | | | | | | and probable erosions.I | | | | | | have personally viewed | | | | | | this procedure/exam and | | | | | | reviewed this | | | | | | report.Author: ROGERIO | | | | | | Vaishnavi THOMASReviewer: ROGERIO Patiño | | | | | Vaishnavi THOMASSTATUS FINAL | | | | | | / Dr. ROGERIO THOMASSTATUS | | | | | | PRELIMINARY - UNSIGNED / | | | | | | Dr. ROGERIO THOMAS | | | | + + + + + + + + | Specimen | + + | | + + + +---------+ + + | Performing | Address | City/State/Zipcode | Phone Number | | Organization | | | | + +---------+ + + | [facility] DEPARTMENT OF | | | | | RADIOLOGY | | | | + +---------+ + + documented in this encounter Visit Diagnoses + + | Diagnosis | + + | Hip pain - Primary Pain in joint, pelvic region and thigh | + + documented in this encounter"
--- OUTSIDE RECORDS SUMMARY | ~2019-01-28 | XMS | Encounter Summary ---
Demographics + + + | Address | [address] | | | [place] [address] | + + + | Home Phone [...] + + + | Author | [facility] | + + + | Organization | [facility] | + + + | [...] Team Providers + +------+ + | Care Exhauster Engineer Name | Role | Phone | + +------+ + | Kita Schafer MD | PCP | | + +------+ + Reason for Visit + + + | Reason | Comments | + + + | Erroneous Encounter | | | - Disregard | | + + + Office Visit - E/M Services (Routine) +--------+--------+ + + + + | Status | Reason | Specialty | Diagnoses / | Referred By | Referred To | | | | | Procedures | Contact | Contact | +--------+--------+ + + + + | Closed | | Orthopedics | | No | Denise, | | | | | | Referring | Jorge Paige MD | | | | | | Provider Per | [address] | | | | | | Patient NO | Wilfrido Hernandez | | | | | | REFERRING | Joseph Mchugh, | | | | | | PROVIDER PER | [place] | | | | | | [place] | [address] | | | | | | | Phone: | | | | | | | [phone] | | | | | | | Fax: | | | | | | | [phone] | +--------+--------+ + + + + Encounter Details +--------+---------+ + + + | Date | Type | Department | Care Team | Description | +--------+---------+ + + + | 11/17/ | Office | Orthopaedics at | Jorge Walker MD | Osteoarthrosis, hip | | 2010 | Visit | [facility] [address] | [address] | (Primary Dx); | | | | [facility] | [address] | ERRONEOUS ENCOUNTER | | | | Mailcode: [id number] | [place], [place] | - NO DIAGNOSIS | | | | [facility] | [address] | | | | | [place], [place] | [phone] | | | | | [address] | | | | | | [phone] | | | +--------+---------+ + + + [...] documented as of this encounter Progress Notes Jorge Walker MD - 11/18/2010 10:29 AM PDTThis encounter was opened in error. Please dis regard this note. docu mented in this encounter Plan of Treatment Not on filedocumented as of this encounter Visit Diagnoses + + | Diagnosis | + + | Osteoarthrosis, hip - Primary Localized osteoarthrosis not specified whether primary | | or secondary, pelvic region and thigh | + + | ERRONEOUS ENCOUNTER - NO DIAGNOSIS | + + documented in this encounter"
--- OUTSIDE RECORDS SUMMARY | ~2019-01-28 | XMS | Encounter Summary ---
Demographics + + + | Address | [address] | | | [place] [address] | + + + | Home Phone | | + + + | Preferred Language | Unknown | + + + | Marital Status | Single | + + + | Druze Affiliation | BAP | + + + | Race | or | + + + | Ethnic Group | Not or | + + + Author + + + | Author | [facility] | + + + | Organization | [facility] | + + + | Address [...] Team Providers + +------+ + | Care Broadcast Operations Engineer Name | Role | Phone | + +------+ + | Gracie Mariano MD | PCP | Unavailable | + +------+ + Reason for Referral PROC - Inpatient Surgery (Routine) +--------+--------+ + + + + | Status | Reason | Specialty | Diagnoses / | Referred By | Referred To | | | | | Procedures | Contact | Contact | +--------+--------+ + + + + | Closed | | Orthopedics | Diagnoses | Royal, | Denise | | | | | | Quang Christensen, | Jorge Paige MD | | | | | Osteoarthros | MD Eastern | [address] | | | | | is, | [facility] | [address] | | | | | unspecified | [address] | [address] [place], | | | | | whether | [address] | [place] | | | | | generalized | [address] | [address] | | | | | or | [place], | Phone: | | | | | localized, | [place] [address] | [phone] | | | | | pelvic | Phone: | Fax: | | | | | region and | [phone] | [phone] | | | | | thigh | Fax: | | | | | | Procedures | [phone] | | | | | | REQUEST TO | | | | | | | SURGERY | | | | | | | AFFILIATE MARKETING SPECIALIST | | | | | | | TX TOTAL HIP | | | | | | | | | | | | | | ARTHROPLASTY | | | | | | | TX | | | | | | | DRESSING | | | | | | | CHANGE,NOT | | | | | | | FOR BURN | | | | | | | W/GEN | | | | | | | ANESTHESIA | | | +--------+--------+ + + + + Reason for Visit + + + | Reason | Comments | + + + | Return Patient | | + + + Office Visit - E/M Services (Routine) +--------+--------+ + + + + | Status | Reason | Specialty | Diagnoses / | Referred By | Referred To | | | | | Procedures | Contact | Contact | +--------+--------+ + + + + | Closed | | Orthopedics | Diagnoses | Royal, | Denise | | | | | MEGHAN in hips | Quang Christensen, | Jorge Paige MD | | | | | | MD Lamb | [address] | | | | | | [facility] | [place]fr[place] | | | | | | & [address] | [address] [place], | | | | | | [address] | [place] | | | | | | [address] [place] | [address] | | | | | | [place], | Phone: | | | | | | [place] [address] | [phone] | | | | | | Phone: | Fax: | | | | | | [phone] | [phone] | | | | | | Fax: | | | | | | | [phone] | | +--------+--------+ + + + + Encounter Details +--------+---------+ + + + | Date | Type | Department | Care Team | Description | +--------+---------+ + + + | 08/11/ | Office | Orthopaedics at | Jorge Walker MD | S/P hip replacement | | 2011 | Visit | [facility] [address] | [address] | (Primary Dx); | | | | [facility] | [facility] | Osteoarthrosis, hip; | | | | Mailcode: [id number] | [facility] [place] | Ankylosing | | | | [facility] | [address] | spondylitis (HCC); | | | | [facility] [place] | [phone] | Right hip pain | | | | [address] | | | | | | [phone] | | | +--------+---------+ + + + [...] + + + + | Weight | 115.7 kg (255 lb) | 08/11/2012 2:32 PM | | | | | PST | | + + + + + | Height | 165.1 cm (5' 5") | 08/11/2012 2:32 PM | | | | | PST | | + + + + + | Body Mass Index | 42.43 | 08/11/2012 2:32 PM | | | | | PST | | + + + + + documented in this encounter Progress Notes Jorge Walker MD - 01/05/2013 10:04 AM PDTPatient doing well s/p left SUSHIL. [facility] and severe [facility]. Intake placed. Jorge Cárdenas MD - 08/11/2012 4:00 PM PST3 mo s/p complex l eft SUSHIL for . He is very pleased. Says his life is dramatically better and is now "worth living." Denies left hip pain. 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 He wants to get stronger through PT preop. He has also had problems w ith diabetes control lately. PE:Ht 1.651 m (5' 5") | Wt 115.667 kg (255 lb) | BMI 42.43 kg/(m^2) Left hip incision well healed, flex 70, er=ir=30 with no pain nvi d Right hip fused Xray: Well integrated left SUSHIL. Ankylosed right hip. A/P: Doing well. He is a candidate for the right side when he is ready and can call to [facility] raus[facility]. F/u sooner prn. Tdocumented in this encounter Plan of Treatment + +---------+--------+ + + | Name | Type | Priori | Associated Diagnoses | Order Schedule | | | | ty | | | + +---------+--------+ + + | X-RAY HIP 2 VIEWS | Imaging | Routin | Osteoarthrosis, | Expected: | | LEFT W/ PELVIS 1 | | e | hip | 08/05/2012, Expires: | | VIEW | | | | 09/05/2013 | + +---------+--------+ + + documented as of this encounter Procedures + +--------+ + + + | Procedure Name | Priori | Date/Time | Associated Diagnosis | Comments | | | ty | | | | + +--------+ + + + | LAB REPORTS | | 12/29/2013 | | Results for this | | | | 12:00 AM | | procedure are in the | | | | PDT | | results section. | + +--------+ + + + | ORDERS OTHER | | 08/11/2012 | | Results for this | | | | 12:00 AM | | procedure are in the | | | | PST | | results section. | + +--------+ + + + documented in this encounter Results LAB REPORTS (12/29/2013 12:00 AM PDT) + + + | Narrative | Performed At | + + + | | | | | | + + + + + | Procedure Note | + + | Sameera Patel - 01/11/2014 12:23 PM PDT | + + ORDERS AMEE (08/11/2012 12:00 AM PST) + + + | Narrative | Performed At | + + + | | | | | | + + + + + | Procedure Note | + + | Sameera Patel - 04/12/2013 1:25 PM PDT | + + documented in this encounter Visit Diagnoses + + | Diagnosis | + + | S/P hip replacement - Primary Hip joint replacement by other means | + + | Osteoarthrosis, hip Localized osteoarthrosis not specified whether primary or | | secondary, pelvic region and thigh | + + | Ankylosing spondylitis (HCC) Ankylosing spondylitis | + + | Right hip pain Pain in joint, pelvic region and thigh | + + documented in this encounter
--- OUTSIDE RECORDS SUMMARY | ~2019-01-28 | XMS | Encounter Summary ---
Demographics + + + | Address | [address] | | | [place] [address] | + + + | Home Phone | | + + + | Preferred Language | Unknown | + + + | Marital Status | Single | + + + | Church Affiliation | BAP | + + + | Race | or | + + + | Ethnic Group | Not or | + + + Author + + + | Author | [facility] | + + + | Organization | [facility] | + + + | Address [...] Team Providers + +------+ + | Care Treasury Analyst Name | Role | Phone | + +------+ + | Kita Schafer MD | PCP | | + +------+ + Encounter Details +--------+ + + + + | Date | Type | Department | Care Team | Description | +--------+ + + + + | 04// | Dental Practice Manager | Orthopaedics at | Jorge Walker MD | Osteoarthrosis, hip | | 2010 | | [facility] [address] | [address] | (Primary Dx) | | | | [facility] | [facility] | | | | | Mailcode: [id number] | [place], [place] | | | | | [facility] | [address] | | | | | [place], [place] | [phone] | | | | | [address] | | | | | | [phone] | | | +--------+ + + + [...] filedocumented as of this encounter Results X-RAY HIPS BILAT 2 [...] | + +---------+ + + | [facility] DEPARTMENT OF | | | | | RADIOLOGY | | | | + +---------+ + + documented in this encounter Visit Diagnoses + + | Diagnosis | + + | Osteoarthrosis, hip - Primary Localized osteoarthrosis not specified whether primary | | or secondary, pelvic region and thigh | + + documented in this encounter"
--- OUTSIDE RECORDS SUMMARY | ~2019-01-28 | XMS | Encounter Summary ---
Demographics + + + | Address | [address] | | | [place] [address] | + + + | Home Phone | | + + + | Preferred Language | Unknown | + + + | Marital Status | Single | + + + | Islam Affiliation | BAP | + + + [...] Team Providers + +------+ + | Care Signal Worker Name | Role | Phone | + +------+ + | Ino Ace MD | PCP | Unavailable | + +------+ + Encounter Details +--------+ + + + + | Date | Type | Department | Care Team | Description | +--------+ + + + + | 05/23/ | Hospital | Diagnostic | | | | 2008 | Encounter | Radiology at [facility] | | | | | | [address] | | | | | | [facility] [address] | | | | | | Mailcode: PV450 | | | | | | [place] | | | | | | [place], [place] | | | | | | [address] | | | | | | [phone] | | | +--------+ + + + [...] + +--------+ + + + | X-RAY HIP 2 VIEWS | Routin | 05/23/2009 | Hip Pain | Results for this | | RIGHT W/ PELVIS 1 | e | 11:24 AM | | procedure are in the | | VIEW | | PDT | | results section. | + +--------+ + + + documented in this encounter Results X-RAY HIP 2 VIEWS [...] | | | | Vaishnavi THOMASReviewer: ROGERIO | | | | | | Vaihsnavi THOMASSTATUS FINAL | | | | | [...] | | + +---------+ + + | [facility] DEPARTMENT OF | | | | | RADIOLOGY | | | | + +---------+ + + documented in this encounter Visit Diagnoses + + | Diagnosis | + + | Hip pain Pain in joint, pelvic region and thigh | + + documented in this encounter"
--- OUTSIDE RECORDS SUMMARY | ~2019-01-28 | XMS | Encounter Summary ---
Demographics + + + | Address | [address] | | | [place] [address] | + + + | Home Phone | | + + + | Preferred Language | Unknown | + + + | Marital Status | Single | + + + | Mandaeism Affiliation | BAP | + + + [...] Team Providers + +------+ + | Care Bank Teller Machine Mechanic Name | Role | Phone | + +------+ + | Gracie Mariano MD | PCP | Unavailable | + +------+ + Encounter Details +--------+ + + + + | Date | Type | Department | Care Team | Description | +--------+ + + + + | 11/23/ | Power Switchboard Operator | Digestive Health | Harinder Felton, | Other specified | | 2012 | | Center at [facility] [address] | MD [address] | disorder of | | | | [address] | [place] [address] | peritoneum (Primary | | | | Mailcode: Center | [phone] | Dx) | | | | for Health and | | | | | | Healing, [address] | | | | | | [place], [place] | | | | | | [address] | | | | | | [phone] | | | +--------+ + + + [...] | + +--------+ + + + | PATHOLOGY CONSULT - | Routin | 11/24/2012 | Other specified | Results for this | | REVIEW OUTSIDE | e | | disorder of | procedure are in the | | SLIDES | | | peritoneum | results section. | + +--------+ + + + documented in this encounter Results PATHOLOGY CONSULT - REVIEW OUTSIDE SLIDES (11/24/2012) + + + + + + | Component | Value | Ref Range | Performed | Pathologist | | | | | At | Signature | + + + + + + | PATHOLOGY | SOURCE OF SPECIMEN:A | | [facility] | | | CONSULT - | Ilealcecal valve colon | | DEPARTMENT | | | SLIDES | biopsySOURCE OF | | OF | | | | SPECIMEN:B Proximal | | PATHOLOGY | | | | right colon | | | | | | biopsy Materials | | | | | | Received:Referring | | | | | | Institution: [facility] | | | | | | [facility], | | | | | | [facility], | | | | | | [place] | | | | | | [id number] AOutside | | | | | | Accession Number: | | | | | | [id number] | | | | | | Collection Date: | | | | | | 10/22/2011H&E | | | | | | 1Specimen | | | | | | BOutside Accession | | | | | | Number: [id number] | | | | | | Collection Date: | | | | | | 01/07/2012H&E | | | | | | 1 | | | | | | Additional Materials | | | | | | Received: | | | | | | (12/01/2012)Referring | | | | | | Institution: [facility] | | | | | | [facility], | | | | | | [place] [facility], | | | | | | [place] | | | | | | [id number] AOutside | | | | | | Accession Number: | | | | | | [id number] | | | | | | Collection Date: | | | | | | 10/22/2011lock | | | | | | 1Specimen BOutside | | | | | | Accession Number: | | | | | | [id number] | | | | | | Collection Date: | | | | | | 01/07/2012H&E | | | | | | 1 Final | | | | | | Pathologic | | | | | | Diagnosis:A: Ileoceca | | | | | | l valve, biopsy ([facility] | | | | | | [facility], | | | | | | [id number],10/22/2011): | | | | | | - Colonic mucosa | | | | | | with surface | | | | | | hyperplastic | | | | | | changes | | | | | | B: Colon, proximal | | | | | | right, biopsy ([facility] | | | | | | [facility], | | | | | | [id number],01/07/2012):- | | | | | | Colonic mucosa with | | | | | | mildly increased lamina | | | | | | propria eosinophils | | | | | | (seecomment) | | | | | | Comment: We | | | | | | appreciate the | | | | | | opportunity to review | | | | | | this case including | | | | | | theoriginal slide for | | | | | | part B. In the | | | | | | proximal right colon | | | | | | biopsy, there is | | | | | | anincrease in lamina | | | | | | propria eosinophils, a | | | | | | relatively non-specific | | | | | | findingwhich can be | | | | | | attributed to bowel | | | | | | preparation | | | | | | artifact. While some | | | | | | nucleiin crypts are | | | | | | slightly enlarged, they | | | | | | are not hyperchromatic | | | | | | and in ouropinion these | | | | | | findings are not | | | | | | sufficient for the | | | | | | diagnosis of | | | | | | adenomatouschange. Sl | | | | | | ides for part B also | | | | | | reviewed by | | | | | | Gumaro Anderson, | | | | | | whoconcutata. Case | | | | | | seen by:Melina | | | | | | MD Raz/Pathology | | | | | | Yasmin Patel, | | | | | | /PathologistT:ew | | | | | | Clinical | | | | | | History:Screening | | | | | | colonoscopy. My | | | | | | electronic signature | | | | | | indicates that I have | | | | | | personally reviewed | | | | | | alldiagnostic slides, | | | | | | the gross and/or | | | | | | microscopic portion of | | | | | | thisreport and | | | | | | formulated the final | | | | | | diagnosis. | | | | | | Rendering | | | | | | Diagnostician: Shayy Cannon | | | | | | Jorge | | | | | | VaishnaviPathologistElectroni | | | | | | donald Signed | | | | | | 12/05/2012 6:01PM | | | | + + + + + + + + | Specimen | + + | Slide | + + + + + + + | Performing | Address | City/State/Zipcode | Phone Number | | Organization | | | | + + + + + | [facility] | [address] | [place] [address] | | | PATHOLOGY | [address] | | | + + + + + documented in this encounter Visit Diagnoses + + | Diagnosis | + + | Other specified disorder of peritoneum - Primary | + + documented in this encounter"
--- OUTSIDE RECORDS SUMMARY | ~2019-01-28 | XMS | Encounter Summary ---
Demographics + + + | Address | [address] | | | [place] [address] | + + + | Home Phone | | + + + | Preferred Language | Unknown | + + + | Marital Status | Single | + + + | Protestant Affiliation | BAP | + + + | Race | or | + + + | Ethnic Group | Not or | + + + Author + + + | Author | [facility] | + + + | Organization | [facility] | + + + | Address [...] Team Providers + +------+ + | Care Health Support Specialist Name | Role | Phone | + +------+ + | Gracie Mariano MD | PCP | Unavailable | + +------+ + Reason for Referral Consultation (Routine) +--------+--------+ + + + + | Status | Reason | Specialty | Diagnoses / | Referred By | Referred To | | | | | Procedures | Contact | Contact | +--------+--------+ + + + + | Closed | | Rheumatology | Diagnoses | Scott | [employer] [facility] | | | | | Ankylosing | Adriano, MD | [address] | | | | | spondylitis | [address] | [address] | | | | | ([facility]) | Ave | [address] | | | | | Procedures | [place], [place] | Mailcode: | | | | | CONSULT TO | [address] | OP09 | | | | | RHEUMATOLOGY | | Physicians | | | | | | | [address], [address] | | | | | | | Floor | | | | | | | [place], [place] | | | | | | | [address] | | | | | | | Phone: | | | | | | | [phone] | | | | | | | Fax: | | | | | | | [phone] | +--------+--------+ + + + + Reason for Visit + + + | Reason | Comments | + + + | New patient | colitis | | consultation | | + + + Consultation (Routine) +--------+--------+ + + + + | Status | Reason | Specialty | Diagnoses / | Referred By | Referred To | | | | | Procedures | Contact | Contact | +--------+--------+ + + + + | Closed | | Gastroenterol | Diagnoses | Montserrat, | Scott, | | | | ogy | Diarrhea | MD Gracie | MD Adriano | | | | | Ankylosing | [address] | [address] | | | | | spondylitis | [address] | [address] | | | | | ([facility]) | [facility], [place] | [place], [place] | | | | | diarrhea | [address] | [address] | | | | | eval | Phone: | | | | | | | [phone] | | | | | | | Fax: | | | | | | | [phone] | | +--------+--------+ + + + + Encounter Details +--------+---------+ + + + | Date | Type | Department | Care Team | Description | +--------+---------+ + + + | 11/20/ | Office | Digestive Health | Adriano Chavez, | Ankylosing | | 2013 | Visit | Center at [facility] [address] | MD | spondylitis ([facility]) | | | | [address] | | (Primary Dx); | | | | Mailcode: Center | | Nonspecific | | | | for Health and | | elevation of levels | | | | Healing, Building [address] | | of transaminase or | | | | [place], [place] | | lactic acid | | | | [address] | | dehydrogenase (LDH); | | | | [phone] | | Diarrhea; Ulcer of | | | | | | ileum | +--------+---------+ + + + Social History [...] + + + | Blood Pressure | 163/92 | 11/20/2013 1:52 PM | | | | | PDT | | + + + + + | Pulse | 79 | 11/20/2013 1:52 PM | | | | | PDT | | + + + + + | Temperature | 36.9 C (98.5 F) | 11/20/2013 1:52 PM | | | | | PDT | | + + + + + | Respiratory Rate | 18 | 11/20/2013 1:52 PM | | | | | PDT | | + + + + + | Oxygen Saturation | - | - | | + + + + + | Inhaled Oxygen | - | - | | | Concentration | | | | + + + + + | Weight | 115 kg (253 lb 9.6 | 11/20/2013 1:52 PM | | | | oz) | PDT | | + + + + + | Height | 167.6 cm (5' 6") | 11/20/2013 1:52 PM | | | | | PDT | | + + + + + | Body Mass Index | 40.93 | 11/20/2013 1:52 PM | | | | | PDT | | + + + + + documented in this encounter Progress Notes Adriano Chavez MD - 11/20/2013 1:58 PM PDTFormatting of this note might be different fro m the original. Inflammatory Bowel Disease Clinic [facility] ~ Initial Consultation Referring Physician: Harinder Felton Patient Identification: Jorge L Cisneros is a pleasant 63 y.o. male with a history of advanced ankylosing spondylitis who presents to the [facility] Disease Clinic for evaluation and treatment recommendations for abnormal colonoscopic findings, and to establish care in our clinic. History of Present Illness: Mr. Cisneros has a longstanding history of ankylosing spondylitis (started at age 17), with fus ion of IS joints and complete loss of mobility of his neck. Regarding treatment, when last seen by rheumatology, plans were made for initiation of Humira. Mr. Cisneros reports that he pérez s delayed starting this medication until planned hip surgery in spring 2013. Mr. Cisneros reports a previous history of segmental colonic resection for diverticular disease . He has a history of 3-4 unremarkable colonoscopies over the last 10-15 years. His recent diagnostics have shown: Colonoscopy 10/2011 -ulcerated hyperplastic lesion on ileocecal valve -left-sided diverticulosis -colorectal anastomosis at 32cm BIOPSIES (review at [facility]): colonic mucosal with surface hyperplastic changes Colonoscopy 01/07/12 ([facility]) -hyperplastic ulcerated lesion in proximal right colon/ileocecal valve -left-sided diverticulosis -[id number] colorectal anastomosis at 38cm BIOPSIES (review at [facility]): mildly increased lamina propria eosinophils (not sufficient for diagnosis of adenomatous change) Colonoscopy 12/28/12 ([facility]) -ulcerated ICV (previous Bx with hyperplastic changes) -ileum normal except just proximal to ICV BIOPSIES: active enteritis, active ileocolitis (mild) with increase in eosinophils poss ibly consistent with inflammation; random colon biopsies normal Mr. Cisneros denies a history of use of NSAIDs or antibiotics. He notes diarrhea which has imp roved with dietary modification (off meats; eats dairy, vegetables, oatmeal without problems ). Of note, Mr. Cisneros had a cholecystectomy in 02/2013. I have conducted the following review of systems relevant to IBD with the patient: Current GI Symptoms: Bowel Habits: 2-6 soft BMs/day (if doesn't use medical marijuana, very loose); mostly durin g day Abdominal Pain: incisional hernia (pain over hernia when sneezes) Weight loss: stable x 7-8 years Nausea/vomiting: none Appetite: good Perianal Symptoms: none Oral ulcers: none Other Symptoms: F/C/Sweats: history of night sweats; not an issue recently Extraintestinal Symptoms: Joint pain (any change from baseline): neck pain; back; elbows; shoulders Eye pain, redness, or visual changes: none New rashes or skin lesions: gets hives frequently (at site of previous lye rizzo) Liver disease/jaundice: none I have also reviewed the following symptoms with the patient: Review of Systems: Constitutional: good energy level ENT: no pain with swallowing or problem swallowing CV: no chest pain, palpitations Resp: no cough, no shortness of breath GI: as above : no nephrolithiasis Neuro: no headaches, no weakness; diabetic neuropathy Hem/lymph: no LAD; no history of anemia or leukopenia (no transfusion/IV iron) Past Medical, Family & Social History: I reviewed the history below with the patient and made any relevant updates or changes in t he medical record. Past Medical History Diagnosis Date Diabetes mellitus type II 2007 Diverticula, colon 2002 Ankylosing spondylitis Spinal fusion Neck fusion from Cardiac murmur Osteoarthrosis, hip 05/23/2009 right hip Antiphospholipid antibody syndrome DVT, lower extremity Osteoarthrosis, hip HTN (hypertension) Hypothyroidism Stroke 2010 x2 Diabetes mellitus with nephropathy Per outside records (10/09/2009) in media. Localized osteoarthrosis not specified whether primary or secondary, pelvic region and thigh Ankylosing spondylitis Anticoagulation management encounter Iron deficiency Testosterone deficiency Obesity Heart disease, unspecified Other and unspecified hyperlipidemia Shortness of breath GERD (gastroesophageal reflux disease) Unspecified hemorrhagic conditions Difficult intubation glidescope used for intubation Past Surgical History Procedure Laterality Date Colectomy 2004 partial, for diverticulitis Rotator cuff repair 1998 Left total hip arthroplasty with complexity modifier, incisional wound vac 05/09/2012 Family History Problem Relation Cancer Mother mesothelioma Heart Disease Father History Social History Marital Status: Single Spouse Name: N/A Number of Children: N/A Years of Education: N/A Occupational History Not on file. Social History Main Topics Smoking status: Former Smoker -- 0.50 packs/day for 2 years Types: Cigarettes Quit date: 12/14/1981 Smokeless tobacco: Never Used Alcohol Use: No Drug Use: Yes Comment: marijuana daily 3.0 Sexually Active: Not on file Other Topics Concern Not on file Social History Narrative No narrative on file Allergies Allergen Reactions Codeine Rash Penicillins Rash Sulfa (Sulfonamide Antibiotics) Diarrhea and Rash Trimethoprim Diarrhea That lasted a week Current Outpatient Prescriptions Medication acetaminophen 650 mg Oral tablet adalimumab 40 mg/0.8 mL Subcutaneous Pen Injector Kit allopurinol 100 mg Oral tablet Cholecalciferol, Vitamin D3, 5,000 unit Oral capsule clotrimazole 1 % Topical Cream glipiZIDE 5 mg Oral tablet levothyroxine 50 mcg Oral tablet lisinopril 10 mg Oral tablet MEDICAL MARIJUANA metoprolol tartrate 25 mg Oral tablet morphine 15 mg Oral tablet morphine 15 mg Oral tablet morphine ER 60 mg Oral tablet extended release multivitamin Oral capsule polyethylene glycol 17 gram/dose Oral Powder senna-docusate 8.6-50 mg Oral tablet warfarin 1 mg oral tablet warfarin 5 mg Oral tablet No current facility-administered medications for this visit. Physical Exam:BP 163/92 | Pulse 79 | Temp (Src) 36.9 C (98.5 F) (Oral) | RR 18 | Ht 1.6 76 m (5' 6") | Wt 115.032 kg (253 lb 9.6 oz) | BMI 40.95 kg/(m^2) Appearance: Pleasant morbidly obese male who appears comfortable and in no apparent distres s. Psychological: Appropriate mood and affect. Eyes: Sclera anicteric without injection. HENT: Oropharynx visualized and benign without visible ulceration. Neck: No cervical lymphadenopathy. Patient unable to extend neck. Lung: Clear to Auscultation Bilaterally. CV: Regular Rate and Rhythm. No murmurs. Extremities: No edema. Musculoskeletal: No joint induration or tenderness appreciated. No SI joint tenderness. P atient unable to flex at the hip. Skin: No lesions or rashes noted. Abdomen: Normoactive bowel Sounds, Soft, Nondistended; no hepatosplenomegaly; RUQ incisiona l hernia with minimal tenderness noted. Labs:06/29/13 WBC 8.80 Hgb 15.5 Hct 46.3 Plts 255 BUN 13 Cr 0.79 Ca 8.9 AST 66 ALT 86 ALP 99 Bili 1.0 Prot 8.6 Albumin 4.1 05/16/13 ESR 18 CRP 2.1 HBsAg/cAb/sAb NR 02/19/11 Ferritin 25 Assessment: Jorge L Cisneros is a pleasant 63 y.o. male, who presents to the Inflammatory Bowel Disease Cli [facility] for evaluation of change in bowel pattern and abnormal colonoscopy. Munir's diarrhea coul d be reflective of a number of phenomena: diabetes related autonomic dysfunction, SIBO, bile -salt diarrhea. His colonoscopic findings are somewhat confusion, with finding of ulceratio n at the ileocecal valve with an inflammatory infiltrate. While these findings can be seen and have been described in ankylosing spondylitis (seen in 40% of patients with ), the fin dings could also reflect IBD (though I am suspicious of this diagnosis). Repeat colonoscopy with biopsies and repeat labs assessing nutritional status and albumin could be helpful; a trial of Entocort or prednisone to see if his diarrhea improves could also be helpful. Donna marcos, further evaluation of the small bowel (with cross-sectional imaging) will further help in clarifying his diagnosis. We will hold on this evaluation until Munir has gone through his hip surgery but ideally before he starts Humira. Regarding Munir's elevated AST and ALT, I suspect this is from fatty liver. I will plan for a RUQ US for further evaluation. Plan and Recommendations:-schedule RUQ US -refer to rheumatology for joint aches -at follow-up may consider CT enterography and possible repeat colonoscopy -patient notes symptomatic improvement with marijuana - I suspect this is helping with naus ea/vomiting and bowel irritability (IBS) Follow-Up: 4 months Counseling Time: I spent a total of 60 minutes with this patient, of which greater than 50 % of the time was spent in counseling. Specific issues that were discussed included a revie w of the disease, diagnostic tools that help in our management plans for the patient's sympt oms, and goals for treatment. We discussed the histologic and colonoscopic findings in IBD and ankylosing spondylitis, diagnostic tests that help clarify the diagnosis, and causes of abnormal liver enzymes. documented in this en counter Plan of Treatment Not on filedocumented as of this encounter Results US ABDOMEN LIMITED (12/07/2013 10:18 AM PDT) + + + + + + | Component | Value | Ref Range | Performed | Pathologist | | | | | At | Signature | + + + + + + | US ABDOMEN | EXAM: US ABDOMEN LIMT | | | | | LIMITED | HISTORY: Elevation | | | | | | in AST/ALT COMPARISON: | | | | | | Outside ultrasound February | | | | | | 2012 TECHNIQUE: | | | | | | Limited abdominal | | | | | | ultrasound performed of | | | | | | the right upper | | | | | | quadrant. | | | | | | FINDINGS:Liver: The | | | | | | echotexture is | | | | | | homogeneous. The | | | | | | parenchyma is | | | | | | diffuselyhyperechoic. | | | | | | No focal lesion is | | | | | | seen. Biliary: The | | | | | | gallbladder is | | | | | | surgically absent. No | | | | | | biliary dilatation. | | | | | | Thecommon duct measures | | | | | | 4 mm in diameter. Other: | | | | | | No free fluid in the | | | | | | right upper quadrant. | | | | | | IMPRESSION: Diffusely | | | | | | echogenic liver, | | | | | | compatible with hepatic | | | | | | steatosis Attending | | | | | | Radiologists: WALLACE | | | | | | JONY PALMERuthor: TERESO | | | | | | MD AMADO I have | | | | | | personally viewed this | | | | | | procedure/exam, reviewed | | | | | | this report, and | | | | | | madechanges to it where | | | | | | appropriate. | | | | | | Final/Electronically | | | | | | signed / WALLACE | | | | | | ESTELA 12/07/2013 11:50 | | | | | | AM | | | | + + + + + + + + | Specimen | + + | | + + + +---------+ + + | Performing | Address | City/State/[facility] | Phone Number | | Organization | | | | + +---------+ + + | [facility] DEPARTMENT OF | | | | | RADIOLOGY | | | | + +---------+ + + documented in this encounter Visit Diagnoses + + | Diagnosis | + + | Ankylosing spondylitis (HCC) - Primary Ankylosing spondylitis | + + | Nonspecific elevation of levels of transaminase or lactic acid dehydrogenase (LDH) | + + | Diarrhea | + + | Ulcer of ileum Ulceration of intestine | + + documented in this encounter
--- OUTSIDE RECORDS SUMMARY | ~2019-01-28 | XMS | Encounter Summary ---
Demographics + + + | Address | [address] | | | [place] [address] | + + + | Home Phone | | + + + | Preferred Language | Unknown | + + + | Marital Status | Single | + + + | Advent Affiliation | BAP | + + + [...] Team Providers + +------+ + | Care Crew Leader/Control Room Operator Name | Role | Phone | + +------+ + | Gracie Mariano MD | PCP | Unavailable | + +------+ + Encounter Details +--------+ + + + + | Date | Type | Department | Care Team | Description | +--------+ + + + + | 06/22/ | Abstract | Endoscopic | Harinder Felton, | | | 2012 | | Procedural Unit at | [address] | | | | | Hector [address]na [address] | [place] [address] | | | | | [address] | [phone] | | | | | Road Mailcode: | | | | | | [id number] | | | | | | [address] | | | | | | [place], [place] | | | | | | [address] | | | | | | [phone] | | | +--------+ + + + [...]
--- OUTSIDE RECORDS SUMMARY | ~2019-01-28 | XMS | Encounter Summary ---
Demographics + + + | Address | [address] | | | [place] [address] | + + + | Home Phone [...] + + + | Author | [facility] | + + + | Organization | [facility] | + + + | Address | [...] Team Providers + +------+ + | Care Field Care Coordinator Name | Role | Phone | + +------+ + | Gracie Mariano MD | PCP | Unavailable | + +------+ + Encounter Details +--------+ + + + + | Date | Type | Department | Care Team | Description | +--------+ + + + + | 05/06/ | Entry Examiner | Orthopaedics at | Maldonado Ewing, | | | 2011 | | [facility] [address] | [place] | | | | | [facility] | | | | | | Mailcode: [id number] | | | | | | [address] | | | | | | [place], [place] | | | | | | [address] | | | | | | [phone] | | | +--------+ + + + [...]
--- OUTSIDE RECORDS SUMMARY | ~2019-01-28 | XMS | Encounter Summary ---
Demographics + + + | Address | [address] | | | [place] [address] | + + + | Home Phone [...] Author + + + | Author | [facility] | + + + | Organization | [facility] | + + + | Address [...] Team Providers + +------+ + | Care Public Information Coordinator Name | Role | Phone | [...] + + + | Authorized | | Physical | Diagnoses | Paige, | | | | | Therapy | Balance | Arline Kendall, | | | | | | problem | PA-C [address]683 | | | | | | Procedures | [address] | | | | | | PHYSICAL | [facility], | | | | | | THERAPY | [place] | | | | | | REFERRAL | [address] | | | | | | | Phone: | | | | | | | [phone] | | | | | | | Fax: | | | | | | | [phone] | | + +--------+ + + + + Reason for Visit + + + | Reason | Comments | + + + | Postoperative visit | | + + + Encounter Details +--------+---------+ + + + | Date | Type | Department | Care Team | Description | +--------+---------+ + + + | 08/15/ | Office | [facility] at | Arline Paige, | Closed displaced | | 2018 | Visit | [facility] [address] | PA-C [address] | fracture of second | | | | [address] [place], [place] | [address] [place], [place] | cervical vertebra, | | | | [address] | [address] | unspecified fracture | | | | [phone] | [phone] | morphology, initial | | | | | | encounter (HCC) | | | | | | (Primary Dx); Neck | | | | | | pain; Balance | | | | | | problem; Ankylosing | | | | | | spondylitis, | | | | | | unspecified site of | | | | | | spine ([facility]) | +--------+---------+ + + + Social History [...] Pressure | 146/63 | 04/06/2018 11:21 AM | | | | | PDT | | + + + + + | Pulse | 78 | 04/06/2018 11:21 AM | | | | | PDT [...] kg (243 lb) | 04/06/2018 11:21 AM | | | | | PDT | | + + + + + | Height | 177.8 cm (5' 10") | 04/06/2018 11:21 AM | | | | | PDT | | + + + + + | Body Mass Index | 34.87 | 04/06/2018 11:21 AM | | | | | PDT [...] + + documented as of this encounter Patient Instructions Patient Instructions Arline Paige PA-C - 04/06/2018 11:30 AM PDTNo follow up with Neuro surgery needed See your primary care provider to discuss your knee pain and "popping" sounds - you may pelon d physical therapy or a referral to an ortho specialist Please see a physical therapist to address your balance documented in this encounter Progress Notes Leola oRche - 04/06/2018 11:30 AM PDTFormatting of this note might be different from t he original. Attempted to call patient, but no vmb has been set up yet. Will try patient again next crystal kendall to schedule. KYMBERLY Chaparro Do you mind calling this patient later this week or next to help arrange cervical x-rays to be done in 3 months? He doesn't need to come in, i'll just need dams, Arline Kendall PA-C - 04/06/2018 11:30 AM PDTMunirkevin Cisneros is a 67 y.o. male who is seen in clinic today for a ro utine 6 week postop visit. He has a history of ankylosing spondylitis and C7 fracture after a fall and subsequent C3-T2 PIF in 2006. He presented after a GLF on 02/15/18. Imaging reveal ed an unstable C2 fracture. Now s/p C1 laminoplasty and placement of occipital plates, with bilateral outrigger rods connected to previous hardware on 02/18/18. In speaking with the patient today, he does not remember his hospital course or much of his original fall. He has returned to living at home independently. He walks with two canes but cannot remember how his balance compares from now to pre-injury. He thinks he intermittentl y walked with 1-2 canes prior. He has had another few miss falls, one in the shower that marisol rand concerned him and he thinks his balance is a little worse than before but cannot quite rem ember. He denies having any radicular arm pain or wound concerns. Ht 1.778 m (5' 10"), Wt 110.2 kg (243 lb), BP 146/63, Pulse 78, BMI 34.87 kg/(m^2). Facili ty age limit for growth percentiles is 18 years. PE: Alert, oriented x3. Speech clear, fluent. Gaze conjugate. Face symmetric. Cervical incision: flat, dry, intact. LT sensation intact. Strength full throughout BUE/BLE at 5/5. Neg Hoffmans reflexes. Ambulates with 2 canes. Imagin04/06/18 Cervical x-rays 1. Occipital-C2 posterior spinal fusion with suspected dislodgement of the left occipital c ompression/locking nut/screw. 2. Unchanged C2 fractures with unchanged 1 cm anterolisthesis of C2 on C3. 3. Ankylosing spondylitis. Impression: 67 y.o. male with a history of ankylosing spondylitis and C7 fracture after a fall and subsequent C3-T2 PIF in 2006. He presented after a GLF on 02/15/18. Imaging revealed an unstable C2 fracture. Now s/p C1 laminoplasty and placement of occipital plates, with bi lateral outrigger rods connected to previous hardware on 02/18/18. Neuro intact. Plan: -Patient discussed with Dr. Barroso -Follow up with PCP re: knee pain -External PT referral placed for balance -No plan for surgical revision of possible screw dislodgement -Follow up with cervical AP/lat x-rays in 3 months to evaluate hardware. Okay to have these done locally and review over the phone as traveling is a hardship. [facility] [address] [address] documented in this encounter Plan of Treatment Not on filedocumented as of this encounter Results X-RAY SPINE CERVICAL 2 VIEWS (04/06/2018 10:54 AM PDT) + + | Specimen | + + | | + + + + + | Narrative | Performed At | + + + | EXAM: SPINE CERVICAL 2 VIEWS HISTORY: eval neck pain | [facility] | | COMPARISON: Spine radiographs from 02/22/2018. FINDINGS: The | RADIOLOGY VOICE | | patient is status post revision occipital-T2 posterior spinal fusion | RECOGNITION 2 | | and posterior decompression. The hardware is intact. Differences in | | | obliquity limit comparison, although the left occipital locking nut | | | appears displaced from the threaded neel attachment point. | | | There is unchanged 1 cm anterolisthesis of C2 on C3. Fractures at this | | | level and of the C2 lamina are unchanged in configuration. The | | | atlantodens interval is maintained. The appearance of the cervical | | | spine is overall compatible with known ankylosing spondylitis, | | | consisting of flowing anterior syndesmophytes and fusion of the | | | facets. No definite new fractures are seen. The vertebral body heights | | | are preserved. There is no abnormal prevertebral soft tissue | | | swelling. IMPRESSION: 1. Occipital-C2 posterior spinal fusion | | | with suspected dislodgement of the left occipital compression/locking | | | nut/screw. 2. Unchanged C2 fractures with unchanged 1 cm | | | anterolisthesis of C2 on C3. 3. Ankylosing spondylitis. I have | | | personally reviewed the images and, if necessary, edited the report. | | | I agree with the report as now presented. Final signature: Angelito | | | Flo Luong MD 04/06/2018 11:29 AM Preliminary: Zachary Oviedo, | | | Dictation initiated: Zachary Oviedo MD 04/06/2018 11:08 AM | | + + + + + | Procedure Note | + + | Service Account, Radiant Res In Interface - 04/06/2018 11:30 AM PDT EXAM: SPINE | | CERVICAL 2 VIEWS HISTORY: eval neck pain COMPARISON: Spine radiographs from 02/22/2018. | | FINDINGS: The patient is status post revision occipital-T2 posterior spinal fusion and | | posterior decompression. The hardware is intact. Differences in obliquity limit | | comparison, although the left occipital locking nut appears displaced from the threaded | | neel attachment point. There is unchanged 1 cm anterolisthesis of C2 on C3. Fractures | | at this level and of the C2 lamina are unchanged in configuration. The atlantodens | | interval is maintained. The appearance of the cervical spine is overall compatible with | | known ankylosing spondylitis, consisting of flowing anterior syndesmophytes and fusion | | of the facets. No definite new fractures are seen. The vertebral body heights are | | preserved. There is no abnormal prevertebral soft tissue swelling. IMPRESSION: 1. | | Occipital-C2 posterior spinal fusion with suspected dislodgement of the left occipital | | compression/locking nut/screw. 2. Unchanged C2 fractures with unchanged 1 cm | | anterolisthesis of C2 on C3. 3. Ankylosing spondylitis. I have personally reviewed the | | images and, if necessary, edited the report. I agree with the report as now presented. | | Final signature: Angeltio Luong MD 04/06/2018 11:29 AM Preliminary: Zachary Oviedo MD | | Dictation initiated: Zachary Oviedo MD 04/06/2018 11:08 AM | | | |2. Unchanged C2 fractures with unchanged 1 cm anterolisthesis of C2 on C3. | | | |3. Ankylosing spondylitis. | | | |I have personally reviewed the images and, if necessary, edited the report. I agree with th e report as now presented. | | | |Final signature: Angelito Luong MD 04/06/2018 11:29 AM | |Preliminary: Zachary Oviedo MD | |Dictation initiated: Zachary Oviedo MD 04/06/2018 11:08 AM | + + + +---------+ + [...] encounter (HCC) - Primary | + + | Neck pain Cervicalgia | + + | Balance problem Other symptoms involving nervous and musculoskeletal systems | + + | Ankylosing spondylitis, unspecified site of spine (HCC) | + + documented in this encounter
--- OUTSIDE RECORDS SUMMARY | ~2019-01-28 | XMS | Encounter Summary ---
Demographics + + + | Address | [address] | | | [place] [address] | + + + | Home Phone | | + + + | Preferred Language | Unknown | + + + | Marital Status | Single | + + + | Hinduism Affiliation | BAP | + + + | Race | or | + + + | Ethnic Group | Not or | + + + Author + + + | Author | [facility] | + + + | Organization | [facility] | + + + | [...] Team Providers + +------+ + | Care Clothing Examiner Name | Role | Phone | + +------+ + | Ino Ace MD | PCP | Unavailable | + +------+ + Encounter Details +--------+---------+ + + + | Date | Type | Department | Care Team | Description | +--------+---------+ + + + | 08/22/ | Office | [facility] | Judy Gutiérrez, | Osteoarthrosis, hip; | | 2008 | Visit | Rehabilitation | PT [address] | Ankylosing | | | | Services [address] | [address] [place], [place] | spondylitis (HCC) | | | | Taj Hernandez | [id number] | | | | | Road Mailcode: | | | | | | [id number] Physicians | | | | | | [place], | | | | | | [place] [address] | | | | | | [phone] | | | +--------+---------+ + + + [...] documented as of this encounter Progress Notes Judy Gutiérrez, PT - 08/22/2009 10:35 AM PSTFormatting of this note might be different fro m the original. [id number] JORGE L CISNEROS Date of : 1950 Start of care: 08/22/2009 Date of onset: 05/23/2009 Referring/Attending Practitioner: Jorge Walker Primary/Referral Diagnosis/ICD-9: Encounter Diagnoses Code Name Primary? Qualifier 715.35M Osteoarthrosis, hip 720.0 Ankylosing spondylitis Insurance: Payor: MEDICAID [place] Plan: [employer] Product Type: Medicaid Service period from: 08/22/2009 to: 09/22/2009 Number visits used/authorized: 08/24 PRE-OP Evaluation SUBJECTIVE: History of Presenting Problem: Jorge L Cisneros is a 58 y.o. male who is pre-op for planned B SUSHIL. Current level of function: walks up to 2 blocks with 4WW. Home is handicap accessible. Cu rrently pt sleeps in a recliner, he has a hospital bed but somebody "stole" the mattress and he does not know how to replace that. Pt requires assistance for dressing and bathing. Current home environment: Pt lives with family in a single level home. There is a ramp to enter. Bathroom has a shower stall. Pt has access to following equipment: 4WW that is very old and wheels are barely functional . Prior/concurrent treatment: none. Med Hx: Jorge L has a past medical history of Diabetes mellitus type II (2007) and Divertic edmundo, colon (2002). Surgical Hx: Jorge L has no past surgical history on file. Meds: Current outpatient prescriptions: Aspirin 81 mg Oral Tablet, Take 81 mg by mouth once daily ., Disp: , Rfl: lisinopril 5 mg Oral Tablet, Take 5 mg by mouth once daily., Disp: , Rfl: metformin 500 mg Oral Tablet, Take 500 mg by mouth. Take 1/2 tab twice a day , Disp: , Rfl: morphine CR 60 mg Oral Tablet Sustained Release, Take 60 mg by mouth every twelve hours., D isp: , Rfl: Morphine Sulfate 15 mg Oral Capsule, Take 15 mg by mouth every four hours as needed., Disp: , Rfl: simvastatin 40 mg Oral Tablet, Take 40 mg by mouth once daily in the evening., Disp: , Rfl: Precaution/special problems: No hip flexion >90, no hip ABD, no hip IR Pain level (0-10): Patient reports a pain level of NR today. Jorge L's Goals: Learn precautions, learn post-op exercises. OBJECTIVE: Posture/alignment/observation: seated on 4WW with hips extended, limited cervical motion Gait: with 4WW bent forward, decreased khalif ROM: limited hip flexion bilaterally, less than functional for dressing MMT: observed to be at least 3/5 in both hips Neuro Screen: not indicated, no complaints of distal symptoms. Special tests: none TREATMENT TODAY: PT: Brief evaluation . Education of post-op precautions No hip flexion >90, no hip ABD, no hip IR. Education of walking program. Provided pt with information on obtaining the following equipment: none Treatment consisted of teaching Jorge L a home exercise program, written instruction was gi soheila: Post-op Exercises (10 reps 3x/day): Ankle pumps to control swelling Supine hip abduction for muscle activation Supine gluteal sets for muscle activation Supine quad sets for muscle activation ASSESSMENT: Jorge L is pre-op for B SUSHIL. He is receptive to pre-op education and precautions. Jorge L is ready for surgery. Jorge L requires services that can be safely and effectively performed only by a qualified therapist to achieve the following goals: Rehab Potential: Excellent. SHORT-TERM GOALS, discussed with patient, due in 2 weeks: Patient can recall post-op precautions Patient will be independent with mobility while following precautions. Patient will be independent with walking program Patient will have a good understanding of post-op exercises PLAN: Per protocol Review precautions Frequency/Duration: Post-op f/u. Treatment began: 1030 Treatment ended: 1050 This note is to serve as the discharge summary if Jorge L fails to attend further Physical Therapy appointments or contact the therapist regarding any change in their status. JUDY GUTIÉRREZ, PT [facility] [address] [place] [address] Mailcode: [id number] Rosette [place] [id number] documented in this en counter Plan of Treatment + + +--------+ + + | Name | Type | Priori | Associated Diagnoses | Order Schedule | | | | ty | | | + + +--------+ + + | PHYSICAL THERAPY | Procedures | Routin | Osteoarthrosis, | Ordered: 08/22/2009 | | MARIZOL CERVANTES | | e | hip Ankylosing | | | | | | spondylitis (HCC) | | + + +--------+ + + documented as of this encounter Visit Diagnoses + + | Diagnosis | + + | Osteoarthrosis, hip Localized osteoarthrosis not specified whether primary or | | secondary, pelvic region and thigh | + + | Ankylosing spondylitis (HCC) Ankylosing spondylitis | + + documented in this encounter
--- OUTSIDE RECORDS SUMMARY | ~2019-01-28 | XMS | Encounter Summary ---
Demographics + + + | Address | [address] | | | [place] [address] | + + + | Home Phone | | + + + | Preferred Language | Unknown | + + + | Marital Status | Single | + + + | Nondenominational Affiliation | BAP | + + + | Race | or | + + + | Ethnic Group | Not or | + + + Author + + + | Author | [facility] | + + + | Organization | [facility] | + + + | Address [...] Team Providers + +------+ + | Care Study Abroad Advisor Name | Role | Phone | + [...] + + | Closed | | | Diagnoses | Tereza, | | | | | | Ankylosing | Dorothy [place] | | | | | | spondylitis | PA-C [address] | | | | | | ([facility] | [address] | | | | | | Procedures | [facility] | | | | | | PHYSICAL | Rd | | | | | | THERAPY | [place], [place] | | | | | | REFERRAL | [address] | | +--------+--------+ + + + + Reason for Visit + + + | Reason | Comments | + + + | Physical Therapy | | | Guidance | | + + + Encounter Details +--------+ + + + + | Date | Type | Department | Care Team | Description | +--------+ + + + + | 04/09/ | Telephone | Orthopaedics at | Jorge Walker MD | Physical Therapy | | 2013 | | [facility] [address] | [address] | Guidance | | | | [facility] [address] | [facility] | | | | | Mailcode: [address] | [place], [place] | | | | | Physician's [place] | [address] | | | | | [place], [place] | [phone] | | | | | [address] | | | | | | [phone] | | | +--------+ + + + [...] spondylitis | + + documented in this encounter"
--- OUTSIDE RECORDS SUMMARY | ~2019-01-28 | XMS | Encounter Summary ---
Demographics + + + | Address | [address] | | | [place] [address] | + + + | Home Phone [...] Author + + + | Author | [facility] | + + + | Organization | [facility] | + + + | Address [...] Team Providers + +------+ + | Care Library Circulation Clerk Name | Role | Phone | + +------+ + | Scooby Mcclure MD | PCP | | + +------+ + Encounter Details +--------+ + + + + | Date | Type | Department | Care Team | Description | +--------+ + + + + | 04/06/ | Hospital | Radiology/Imaging | Arline Paige, | | | 2018 | Encounter | Lab at [facility] [address] | [place] | | | | | [address] [facility] | Ave [place], [place] | | | | | [facility], | [address] | | | | | [address] [place] [address] | [phone] | | | | | [place], [place] | | | | | | [address] | | | | | | [phone] | | | +--------+ + + + [...] tablets by | 30 | 0 | 02/23/20 | | | mg oral tablet | [...] tablets by | 30 | 0 | 02/23/20 | | | (DILAUDID) 2 mg oral [...] | X-RAY SPINE CERVICAL | Routin | 04/06/2018 | Neck pain | Results for this | | 2 VIEWS | e | 10:54 AM | | procedure are in the | | | | PDT | | results section. | + +--------+ + + + documented in this encounter Results X-RAY SPINE CERVICAL 2 [...] as now presented. | | Final signature: Angelito Luong MD 04/06/2018 11:29 AM Preliminary: Zachary [...] + | Diagnosis | + + | Neck pain Cervicalgia | + + documented in this encounter"
--- OUTSIDE RECORDS SUMMARY | ~2019-01-28 | XMS | Encounter Summary ---
Demographics + + + | Address | [address] | | | [place] [address] | + + + | Home Phone [...] Author + + + | Author | [facility] | + + + | Organization | [facility] | + + + | Address | [...] Team Providers + +------+ + | Care Apprentice Jockey Name | Role | Phone | + +------+ + | Kita Schafer MD | PCP | | + +------+ + Encounter Details +--------+ + + + + | Date | Type | Department | Care Team | Description | +--------+ + + + + | 02/15/ | Abstract | Dig[facility]ive Health | Harinder Felton, | | | 2011 | | Center at [facility] [address] | MD [address] | | | | | [place] [address] [place] | [place] [address] | | | | | Mailcode: Center | [phone] | | | | | for Health and | | | | | | [facility], [facility] [address] | | | | | | [place], [place] | | | | | | [address] | | | | | | [phone] | | | +--------+ + + + [...]
--- OUTSIDE RECORDS SUMMARY | ~2019-01-28 | XMS | Encounter Summary ---
Demographics + + + | Address | [address] | | | [place] [address] | + + + | Home Phone [...] Author + + + | Author | [facility] | + + + | Organization | [facility] | + + + | [...] Team Providers + +------+ + | Care Block Cutter Name | Role | Phone | + +------+ + | Scooby Mcclure MD | PCP | | + +------+ + Encounter Details +--------+ + + + + | Date | Type | Department | Care Team | Description | +--------+ + + + + | 05/17/ | Surgical Supervisor | Spine Center at | Arline Paige, | Closed displaced | | 2018 | | [facility] [address] | PA-C [address] | fracture of second | | | | [address] [place], [place] | [address] [place], [place] | cervical vertebra, | | | | [address] | [address] | unspecified fracture | | | | [phone] | [phone] | morphology, initial | | | | | | encounter (HCC) | | | | | | (Primary Dx) | +--------+ + + + + Social [...] as of this encounter Plan of Treatment + +---------+--------+ + + | Name | Type | Priori | Associated Diagnoses | Order Schedule | | | | ty | | | + +---------+--------+ + + | X-RAY SPINE CERVICAL | Imaging | Routin | Closed displaced | Expected: | | 3 VIEWS | | e | fracture of second | 05/17/2018, Expires: | | | | | cervical vertebra, | 06/16/2019 | | | | | unspecified fracture | | | | | | morphology, initial | | | | | | encounter ([facility]) | | + +---------+--------+ + + documented as of this encounter Visit Diagnoses + + | Diagnosis | + + | Closed displaced fracture of second cervical vertebra, unspecified fracture | | morphology, initial encounter ([facility]) - Primary | + + documented in this encounter"
--- OUTSIDE RECORDS SUMMARY | ~2019-01-28 | XMS | Encounter Summary ---
Demographics + + + | Address | [address] | | | [place] [address] | + + + | Home Phone [...] Author + + + | Author | [facility] | + + + | Organization | [facility] | + + + | [...] Team Providers + +------+ + | Care Contact Lens Lathe Operator Name | Role | Phone | + +------+ + | Gracie Mariano MD | PCP | Unavailable | + +------+ + Reason for Visit +---------+ + | Reason | Comments | +---------+ + | Post Op | R SUSHIL 03/12 | +---------+ + PROC - Inpatient Surgery (Routine) +--------+--------+ + + + + | Status | Reason | Specialty | Diagnoses / | Referred By | Referred To | | | | | Procedures | Contact | Contact | +--------+--------+ + + + + | Closed | | Orthopedics | Diagnoses | Paige, | Denise, | | | | | | Quang S, | Jorge Paige, | | | | | Osteoarthros | MD [facility] | [address] | | | | | is, | [facility] | [place] | | | | | unspecified | & Fractur | [address] [place], | | | | | whether | [address] | [place] | | | | | generalized | [address] | [address] | | | | | or | [place], | Phone: | | | | | localized, | [place] [address] | [phone] | | | | | pelvic | Phone: | Fax: | | | | | region and | [phone] | [phone] | | | | | thigh | Fax: | | | | | | Procedures | [phone] | | | | | | REQUEST TO | | | | | | | SURGERY | | | | | | | SNAILER | | | | | | | HI TOTAL HIP | | | | | | | | | | | | | | ARTHROPLASTY | | | | | | | HI | | | | | | | [...] Description | +--------+---------+ + + + | 04/26/ | Office | Orthopaedics at | Jorge Smart MD | S/P hip replacement | | 2013 | Visit | [facility] [address] | [address] | (Primary Dx); | | | | [facility] | [facility] | Ankylosing | | | | Mailcode: [id number] | [place], [place] | spondylitis (HCC) | | | | [facility] | [address] | | | | | [place], [place] | [phone] | | | | | [address] | | | | | | [phone] | | | +--------+---------+ + + + [...] + + + + | Temperature | 37.2 C (98.9 F) | 04/26/2014 9:41 AM | | | | | PDT [...] Weight | 116.1 kg (256 lb) | 04/26/2014 9:41 AM | | | | | PDT | | + + + + + | Height | 165.1 cm (5' 5") | 04/26/2014 9:41 AM | | | | | PDT | | + + + + + | Body Mass Index | 42.6 | 04/26/2014 9:41 AM | | | | | PDT | | + + + + + documented in this encounter Progress Notes Jorge Smart MD - 04/26/2014 11:22 AM RAFAEL performed a history and physical examination of the patient and discussed his management with the resident. I reviewed the resident s note and agree with the documented findings and plan of care. JORGE SMART MD ORTHOPAEDICS AT [facility] [address] [facility] Mailcode: [id number] [place] [phone] Ino Andrews MD - 04/26/2014 10:18 AM PDTJorge L Cisneros is a 63 y.o. male 6 weeks status post right SUSHIL. He is progressing well. He is weight-bearing as tolerated with walker. He is weaning down his mor phine. Very happy with outcome. States he had a stitch abscess that he popped and has resolv ed. On coumadin chronically. PHYSICAL EXAM:Temp (Src) 37.2 C (98.9 F) (Oral) | Ht 1.651 m (5' 5") | Wt 116.121 kg (2 56 lb) | BMI 42.6 kg/(m^2) gen wawn, nad Gait upright with rolling walker Incisions healing well. No pain with rotation nvi d X-ray: Normal postoperative studies status post R SUSHIL. Assessment/Plan: Jorge L Cisneros is progressing well. Continue home exercise program. Follo w-up as needed due [place] [phone] documented in this enc ounter Plan of Treatment Not on filedocumented as of this encounter Results X-RAY HIP 2 VIEWS RIGHT W/ PELVIS 1 VIEW (04/26/2014 9:53 AM PDT) + + + + + + | Component | Value | Ref Range | Performed | Pathologist | | | | | At | Signature | + + + + + + | X-RAY HIP 2 | STUDY: HIP 2 VIEWS RIGHT | | | | | VIEWS | W/ PELVIS 1 VIEW | | | | | RIGHT W/ | 04/26/14 09:53:00 | | | | | PELVIS 1 | HISTORY: Pain. | | | | | VIEW | COMPARISON: 03/12/14 | | | | | | FINDINGS:Bilateral | | | | | | noncemented total hip | | | | | | arthroplasties maintain | | | | | | normal alignment,without | | | | | | hardware failure or | | | | | | loosening. No | | | | | | fracture or focal | | | | | | osseousdestruction is | | | | | | evident. There are | | | | | | unchanged bilateral | | | | | | sacroiliac and | | | | | | pubicsymphysis ankylosis | | | | | | and bilateral ischial | | | | | | enthesopathy. | | | | | | IMPRESSION: Stable | | | | | | bilateral total hip | | | | | | arthroplasties. | | | | | | Unchanged findings of | | | | | | ankylosing spondylitis. | | | | | | Attending Radiologists: | | | | | | ROGERIO THOMAS MDAuthor: | | | | | | ROGERIO THOMAS MD I have | | | | | | personally viewed this | | | | | | procedure/exam, reviewed | | | | | | this report, and | | | | | | madechanges to it where | | | | | | appropriate. | | | | | | Final/Electronically | | | | | | signed / ROGERIO THOMAS | | | | | | 04/26/2014 10:17 AM | | | | + + + + + + + + | Specimen | + + | | + + + +---------+ + + | Performing | Address | City/State/Zipcode | Phone Number | | Organization | | | | + +---------+ + + | [facility] DEPARTMENT OF | | | | | RADIOLOGY | | | | + +---------+ + + documented in this encounter Visit Diagnoses + + | Diagnosis | + + | S/P hip replacement - Primary Hip joint replacement by other means | + + | Ankylosing spondylitis (HCC) Ankylosing spondylitis | + + documented in this encounter
--- OUTSIDE RECORDS SUMMARY | ~2019-01-28 | XMS | Encounter Summary ---
Demographics + + + | Address | [address] | | | [place] [address] | + + + | Home Phone | | + + + | Preferred Language | Unknown | + + + | Marital Status | Single | + + + | Jewish Affiliation | BAP | + + + [...] Team Providers + +------+ + | Care Audit Manager Name | Role | Phone | [...] Description | +--------+---------+ + + + | 05/10/ | Office | Radiation Oncology | Antony Patterson MD | Postoperative | | 2011 | Visit | at [facility] [address] | | heterotopic | | | | [address] | | calcification | | | | Meliza Ibarra | | (Primary Dx) | | | | [place], | | | | | | [place] [address] | | | | | | [phone] | | | +--------+---------+ + + + [...] of this encounter Patient Instructions Patient Instructions Munira Paul MD - 05/10/2012 6:00 PM PDT-please feel free to con tact us with further questions: [phone] documented in this encounter Progress Notes Antony Patterson MD - 05/12/2012 10:50 AM PDTI personally reviewed this patient with the res ident and examined the patient. I supervised the simulation and treatment, and reviewed dosi metry. I agree with the treatment plan. Antony Patterson MD Munira Dias MD - 05/10/2012 5:22 PM PDT RADIATION ONCOLOGY CONSULTATION Requesting Provider: Jorge Walker MD Identification/Chief Complaint: Severe osteoarthritis and history of ankylosis spondylitis s/p left total hip arthroplasty yesterday afternoon (05/09/12). History of Present Illness: Jorge L Cisneros is a 61 year old male, from [place], [place], with a history of ankylosis spondyl itis with complete spine involvment and bilateral hip involvment. He presented with severe flexion and adduction contractures with sever associated pain. Underwent a left total hip a rthroplasty yesterday (05/09/12) afternoon. He now presents to discuss postoperative radiation for heterotrophic ossification prophylax is. He has no history of radiation exposure. No previous hip surgeries, no history of hete rotopic ossification. Past Medical History: Patient Active Problem List Diagnoses Date Noted Osteoarthrosis, hip 05/23/2009 Overview Note: Right hip Ankylosing Spondylitis 05/23/2009 Past Medical History Diagnosis Date Diabetes mellitus type II 2007 Diverticula, colon 2002 Ankylosing spondylitis Spinal fusion Neck fusion from Cardiac murmur Osteoarthrosis, hip 05/23/2009 right hip Antiphospholipid antibody syndrome DVT, lower extremity Osteoarthrosis, hip HTN (hypertension) Hypothyroidism Stroke 2009 x2 Diabetes mellitus with nephropathy Per outside records (10/09/2009) in media. Localized osteoarthrosis not specified whether primary or secondary, pelvic region and thigh Past Surgical History Procedure Date Colectomy 2003 partial, for diverticulitis Rotator cuff repair 1997 Medications No current facility-administered medications for this visit. Current Outpatient Prescriptions Medication Sig enoxaparin 40 mg/0.4 mL Subcutaneous Syringe Inject 0.4 mL under the skin (SUBC) once d aily at noon. morphine 15 mg Oral tablet Take 1 Tab by mouth every four hours as needed for severe pa in. morphine ER 60 mg Oral tablet extended release Take 1 Tab by mouth every twelve hours. Facility-Administered Medications Ordered in Other Visits Medication Dose Route Frequency Provider Last Rate Last Dose acetaminophen (aka TYLENOL) tablet 325-650 mg 325-650 mg Oral Q4H PRN Maldonado Ewing PA-C 650 mg at 05/10/12 0824 bisacodyl (aka DULCOLAX) suppository 10 mg 10 mg Rectal DAILY PRN Opal Gee NP ceFAZolin (aka ANCEF) IV 2 g 2 g Intravenous Q8H Maldonado Ewing PA-C 2 g at 2 1022 cholecalciferol (Vitamin D3) (aka VITAMIN D-3) tablet 5,000 Units 5,000 Units Oral BLAIRE LY Maldonado Ewing PA-C 5,000 Units at 05/10/12 0824 clotrimazole (aka LOTRIMIN AF) 1 % cream Topical BID Maldonado Ewing PA-C cyclobenzaprine (aka FLEXERIL) tablet 10 mg 10 mg Oral HS PRN Kenneth Chacon MD dextrose IV 25 mL 25 mL Intravenous PRN Maldonado Ewing PA-C enoxaparin (aka LOVENOX) injection 40 mg 40 mg Subcutaneous QNOON Maldonado Ewing PA-C 40 mg at 05/10/12 0524 glucagon (aka GLUCAGEN) injection 1 mg 1 mg Intramuscular PRN Maldonado Ewing PA-C glucose chewable tablet 16 g 16 g Oral Q15MIN PRN Maldonado Ewing PA-C hydrocortisone 1 % cream Topical BID PRN Maldonado Ewing PA-C HYDROmorphone (aka DILAUDID) injection 0.2-0.6 mg 0.2-0.6 mg Intravenous Q2H PRN Markie Ewing PA-C insulin lispro (aka HUMALOG) injection 1-16 Units 1-16 Units Subcutaneous MEALS and SN ACK Maldonado Ewing PA-C 2 Units at 05/10/12 0713 lactated ringers IV 100 mL/hr Intravenous CONTINUOUS Maldonado Ewing PA-C 100 mL/hr at 05/10/12 0142 levothyroxine tablet 50 mcg 50 mcg Oral DAILY Kenneth Chacon MD 50 mcg at 05/10 0631 lidocaine (aka LIDODERM) 5 %(700 mg/patch) patch 2 Patch 2 Patch Transdermal Q24H Kimb erly Rich, AIR DRIER lisinopril (aka PRINIVIL) tablet 10 mg 10 mg Oral DAILY Maldonado Ewing PA-C 10 mg a t 05/10/12 0824 metoprolol tartrate (aka LOPRESSOR) tablet 25 mg 25 mg Oral BID Maldonado Ewing PA-C 25 mg at 05/10/12 0824 morphine (aka MS IR) tablet 15 mg 15 mg Oral Q4H PRN Maldonado Ewing PA-C 15 mg at 0 05/10/12 1712 morphine ER (aka MS CONTIN) tablet 60 mg 60 mg Oral Q12H Maldonado Ewing PA-C 60 mg at 05/10/12 0824 naloxone (aka NARCAN) injection Intravenous PRN Maldonado Ewing PA-C polyethylene glycol (aka MIRALAX) powder 17 g 17 g Oral DAILY Opal Gerard, AIR DRIER 17 g at 05/10/12 1201 quiNINE sulfate (aka QUALAQUIN) capsule 324 mg 324 mg Oral BID PRN SORAYA Finney senna-docusate (aka SENOKOT S) 8.6-50 mg 1 Tab 1 Tab Oral BID Opal Rich, AIR DRIER 1 Ta b at 05/10/12 1201 warfarin (aka COUMADIN) tablet 6 mg 6 mg Oral QPM Kenneth Chacon MD Allergies: Allergies Allergen Reactions Codeine Rash Penicillins Rash Social History: History Social History Marital Status: Single Spouse Name: N/A Number of Children: N/A Years of Education: N/A Social History Main Topics Smoking status: Former Smoker -- 0.5 packs/day for 2 years Types: Cigarettes Smokeless tobacco: Never Used Comment: He quit in 1981 Alcohol Use: No Drug Use: Yes marijuana daily 3.5-7 grams per day. Sexually Active: Not on file Other Topics Concern Not on file Social History Narrative No narrative on file Family History: Family History Problem Relation Cancer Mother mesothelioma Heart Disease Father Review of Systems: Pertinent positives and negatives were added to HPI, rest of ROS were negative or noncontri butory. Physical Exam: General: WDWN male in NAD in hospital bed and gown Vitals: T:36.7 P:81 BP:131/62 R:16 O2:96% Pain Score: 7-8 HEENT: NC/AT, PERRL, EOMI. Chest: CTAB CV: RRR Abd: soft, NTND Ext: Incision in the posterior medial left thigh with a wound vac. Able to move leg with l imitations 2/2 pain Neuro: nonfocal LABORATORY: Lab Results Component Value Date NA 139 05/10/2012 K 4.5 05/10/2012 CL 104 05/10/2012 BICARB 27 05/10/2012 BUN 16 05/10/2012 CR 0.81 05/10/2012 GLU 162 05/10/2012 CA 7.8 05/10/2012 Lab Results Component Value Date WBC 7.6 05/10/2012 HB 10.0 05/10/2012 HCT 30.3 05/10/2012 PLT 205 05/10/2012 MCV 84.1 05/10/2012 RDW 15.4 05/10/2012 IMAGING: X-RAY PORTABLE PELVIS 1 VIEW: EXAM: SD PELVIS 1 VIEW, 05/10/12 COMPARISON: 12/15/2010 HISTORY: Left total hip arthroplasty FINDINGS: There has been recent resection of the left femoral head and neck and placement of a non-cemented total hip arthroplasty. There is normal alignment and no fracture or other acute complication. Bilateral sacroiliac ankylosis and probable right hip ankylosis are unchanged; lumbar spine syndesmophytes are likely present. IMPRESSION: New left total hip arthroplasty in normal alignment without hardware complication. KARNOFSKY PERFORMANCE SCORE: 80% Normal activity with effort ASSESSMENT: 61 year old male with severe osteoarthritis and history of ankylosis spondyliti s s/p left total hip arthroplasty yesterday afternoon (05/09/12) RECOMMENDATIONS: We recommend a single fraction of radiotherapy to a dose of 7Gy to the left hip to reduce t he risk of heterotopic ossification. Ankylosis spondylitis places him at high risk to devel op heterotopic ossification. The patient will be simulated and treated later today. The risks and benefits of radiotherapy for heterotopic ossification prevention were discuss ed in detail with the patient, including but not limited to: Acute problems: fatigue, sunbur n of skin, impaired wound healing. Chronic problems: arthritis, secondary cancers, limb swel ling. The patient expressed an understanding of these risks and informed consent was obtaine d. This patient was seen, examined, and discussed with my attending, Dr. Antony Patterson, who ag diana with this assessment and plan. MUNIRA PAUL MD CC: A copy of this note has been sent to the referring provider, Dr. Walker. documented in this e ncounter Plan of Treatment Not on filedocumented as of this encounter Visit Diagnoses + + | Diagnosis | + + | Postoperative heterotopic calcification - Primary | + + documented in this encounter"
--- OUTSIDE RECORDS SUMMARY | ~2019-01-28 | XMS | Encounter Summary ---
Demographics + + + | Address | [address] | | | [place] [address] | + + + | Home Phone | | + + + | Preferred Language | Unknown | + + + | Marital Status | Single | + + + | Pentecostalism Affiliation | BAP | + + + | Race | or | + + + | Ethnic Group | Not or | + + + Author + + + | Author | [facility] | + + + | Organization | [facility] | + + + | [...] Team Providers + +------+ + | Care Outreach Specialist Name | Role | Phone | [...] | | | | problem | PA-C 4793 | | | | | | Procedures | MARY[place] Myrick | | | | | | PHYSICAL | [facility] | | | | | | THERAPY | [place] | | | | | | REFERRAL | [address] | | | | | | | Phone: | | | | | | | [phone] | | | | | | | Fax: | | | | | | | [phone] | | + +--------+ + + + [...] of second | | | | [address] [place], [place] | [address] [place], [place] | cervical vertebra, | | | | [address] | [address] | unspecified fracture | | | | [phone] | [phone] | morphology, initial | | | | | | encounter (HCC) | | | | | | (Primary Dx); Neck | | | | | | pain; Balance | | | | | | problem; Ankylosing | | | | | | spondylitis, | | | | | | unspecified site of | | | | | | spine ([facility]) | +--------+---------+ + + + Social History [...] documented in this encounter Progress Notes Leola Roche - 04/06/2018 11:30 AM PDTFormatting of this [...] come in, i'll just need dams, Arline Knedall PA-C - 04/06/2018 11:30 AM PDTMunirkevin Cisneros [...] traveling is a hardship. [facility] [address] [address] documented in this encounter Plan [...]
--- OUTSIDE RECORDS SUMMARY | ~2019-01-28 | XMS | Encounter Summary ---
Demographics + + + | Address | [address] | | | [place] [address] | + + + | Home Phone [...] | + + +---------+ + | Jean Fukn | ECON | Unknown | Unavailable | + + +---------+ + Care Team Providers + +------+ + | Care Business Database Analyst Name | Role | Phone | + +------+ + | Gracie Mariano MD | PCP | Unavailable | + +------+ + Encounter Details +--------+------+ + + + | Date | Type | Department | Care Team | Description | +--------+------+ + + + | 12/07/ | Lab | Laboratory, | | Ankylosing | | 2013 | | Specimen Collection | | spondylitis (HCC) | | | | at [facility] 3rd Floor | | | | | | [address] | | | | | | [address] | | | | | | [place], [place] | | | | | | [address] | | | | | | [phone] | | | +--------+------+ + + + Social History + + [...] CBC AND AUTO DIFF | Routin | 12/07/2013 | Ankylosing | Results for this | | | e | 9:31 AM | spondylitis (HCC) | procedure are in the | | | | PDT | | results section. | + +--------+ + + + | CBC, WITH | Routin | 12/07/2013 | Ankylosing | Results for this | | DIFFERENTIAL | e | 9:31 AM | spondylitis (HCC) | procedure are in the | | | | PDT | | results section. | + +--------+ + + + | COMPLETE METABOLIC | Routin | 12/07/2013 | Ankylosing | Results for this | | SET | e | 9:31 AM | spondylitis (HCC) | procedure are in the | | (NA,K,CL,CO2,BUN,CRE | | PDT | | results section. | | AT,GLUC,CA,AST,ALT,B | | | | | | [place] TOTAL,ALK | | | | | | PHOS,ALB,PROT TOTAL) | | | | | + +--------+ + + + | C-REACTIVE PROTEIN | Routin | 12/07/2013 | Ankylosing | Results for this | | | e | 9:31 AM | spondylitis (HCC) | procedure are in the | | | | PDT | | results section. | + +--------+ + + + | HEMOGLOBIN A1C, | Routin | 12/07/2013 | Ankylosing | Results for this | | BLOOD | e | 9:31 AM | spondylitis (HCC) | procedure are in the | | | | PDT | | results section. | + +--------+ + + + documented in this encounter Results CBC AND AUTO DIFF (12/07/2013 9:31 AM PDT) + +---------+ + + + | Component | Value | Ref Range | Performed | Pathologist | | | | | At | Signature | + +---------+ + + + | WHITE CELL | 7.90 | 4.40 - 11.00 | [facility] | | | COUNT | | K/cu mm | LABORATORY | | | | | | SERVICES, | | | | | | CORE | | + +---------+ + + + | RED CELL | 5.22 | 4.50 - 6.00 | [facility] | | | COUNT | | M/cu mm | LABORATORY | | | | | | SERVICES, | | | | | | CORE | | + +---------+ + + + | HEMOGLOBIN | 14.9 | 13.5 - 17.5 | [facility] | | | | | g/dL | LABORATORY | | | | | | SERVICES, | | | | | | CORE | | + +---------+ + + + | HEMATOCRIT | 44.9 | 41.0 - 53.0 % | [facility] | | | | | | LABORATORY | | | | | | SERVICES, | | | | | | CORE | | + +---------+ + + + | MCV | 86.0 | 80.0 - 96.0 fL | [facility] | | | | | | LABORATORY | | | | | | SERVICES, | | | | | | CORE | | + +---------+ + + + | MCHC | 33.2 | 33.0 - 35.5 | [facility] | | | | | g/dL | LABORATORY | | | | | | SERVICES, | | | | | | CORE | | + +---------+ + + + | RDW SD | 41.8 | 35.1 - 46.3 fL | [facility] | | | | | | LABORATORY | | | | | | SERVICES, | | | | | | CORE | | + +---------+ + + + | PLATELET | 254 | 150 - 400 K/cu | [facility] | | | COUNT | | mm | LABORATORY | | | | | | SERVICES, | | | | | | CORE | | + +---------+ + + + | MPV | 9.2 [...] +---------+ + + + | NEUTROPHIL | 59.8 | 50.0 - 70.0 % | [facility] | | | % | | | LABORATORY | | | | | | SERVICES, | | | | | | CORE | | + +---------+ + + + | LYMPHOCYTE | 26.5 | 18.0 - 42.0 % | [facility] | | | % | | | LABORATORY | | | | | | SERVICES, | | | | | | CORE | | + +---------+ + + + | MONOCYTE % | 7.0 | 3.5 - 9.0 % | [facility] | | | | | | LABORATORY | | | | | | SERVICES, | | | | | | CORE | | + +---------+ + + + | EOS % | 5.2 (H) | 1.0 - 3.0 % | [facility] | | | | | | LABORATORY | | | | | | SERVICES, | | | | | | CORE | | + +---------+ + + + | BASO % | 1.1 | 0.0 - 2.0 % | [facility] [...] +---------+ + + + | NEUTROPHIL | 4.73 | 1.80 - 7.70 | [facility] | | | # | | K/cu mm | LABORATORY | | | | | | SERVICES, | | | | | | CORE | | + +---------+ + + + | LYMPHOCYTE | 2.09 | 1.00 - 4.80 | [facility] | | | # | | K/cu mm | LABORATORY | | | | | | SERVICES, | | | | | | CORE | | + +---------+ + + + | MONOCYTE # | 0.55 | 0.10 - 0.90 | [facility] | | | | | K/cu mm | LABORATORY | | | | | | SERVICES, | | | | | | CORE | | + +---------+ + + + | EOS # | 0.41 | 0.00 - 0.50 | [facility] | | | | | K/cu mm | LABORATORY | | | | | | SERVICES, | | | | | | CORE | | + +---------+ + + + | BASO # | 0.09 | 0.00 - 0.10 | [facility] | [...] At | + + + | Immature Granulocyes (IG) include metamyelocytes, myelocytes | [facility] | | and promyelocytes. Bands are not included in the IG count. | LABORATORY | | | SERVICES, CORE | + + + + + + + + | Performing | Address | City/State/Zipcode | Phone Number | | Organization | | | | + + + + + | [facility] | [address] | [place] [address] | | | SERVICES, [facility] | [address] | | | + + + + + HEMOGLOBIN A1C, BLOOD (12/07/2013 9:31 AM PDT) + + + + + + | Component | Value | Ref Range | Performed | Pathologist | | | | | At | Signature | + + + + + + | HEMOGLOBIN | 6.9 (H)Comment: Hbg A1c | 4.3 - 5.6 % | [facility] | | | A1C | Interpretive | | LABORATORY | | | | Information: | | SERVICES, | | | | <5.7% - | | SPECIAL IMM | | | | Normal 5.7-6.4% - | | + COAG | | | | Consistent with | | | | | | pre-diabetes | | | | | | >6.4% - Consistent with | | | | | | diabetes | | | | + + + + + + + + | Specimen | + + | Blood - Blood | + + + + + + + | Performing | Address | City/State/Zipcode | Phone Number | | Organization | | | | + + + + + | [facility] | [address] | [place] [address] | | | SERVICES, SPECIAL | [address] | | | | IMM + COAG | | | | + + + + + C-REACT PRTN (FOR INFLAMMATION) (12/07/2013 9:31 AM PDT) + +---------+ + + + | Component | Value | Ref Range | Performed | Pathologist | | | | | At | Signature | + +---------+ + + + | C-REACTIVE | 2.5 (H) | <=0.8 mg/dL | [facility] [...] + | [facility] | [address] | [place] [address] | | | [place] | | | | + + + + + COMPLETE METABOLIC SET (NA,K,CL,CO2,BUN,CREAT,GLUC,CA,AST,ALT,BILI TOTAL,ALK PHOS,ALB,PROT TOTAL) (12/07/2013 9:31 AM PDT) + +---------+ + + + | Component | Value | Ref Range | Performed | Pathologist | | | | | At | Signature | + +---------+ + + + | GLUCOSE, | 134 (H) | 60 - 99 [...] +---------+ + + + | CREATININE | 0.82 | 0.70 - 1.30 | [facility] | | | PLASMA | | mg/dL | LABORATORY | | | (LAB) | | | SERVICES, | | | | | | CORE | | + +---------+ + + + | EGFR | >60 | >60 mL/min | [facility] | | | - | | | LABORATORY | | | [place] | | | SERVICES, | | | [...] +---------+ + + + | CALCIUM, | 8.9 | 8.6 - 10.2 | [facility] | | | PLASMA | | mg/dL | LABORATORY | | | (LAB) | | | SERVICES, | | | | | | CORE | | + +---------+ + + + | BILIRUBIN | 0.8 | 0.3 - 1.2 mg/dL | [facility] | | | TOTAL | | | LABORATORY | | | | | | SERVICES, | | | | | | CORE | | + +---------+ + + + | TOTAL | 7.9 | 6.4 - 8.2 g/dL | [facility] | | | PROTEIN, | | | LABORATORY | | | PLASMA | | | SERVICES, | | | (LAB) | | | CORE | | + +---------+ + + + | ALBUMIN, | 3.6 | 3.5 - 4.7 g/dL | [facility] | | | PLASMA | | | LABORATORY | | | (LAB) | | | SERVICES, | | | | | | CORE | | + +---------+ + + + | ALK PHOS | 83 | 56 - 119 U/L | [facility] | | | | | | LABORATORY | | | | | | SERVICES, | | | | | | CORE | | + +---------+ + + + | AST(SGOT) | 38 | 15 - 41 U/L | [facility] | | | | | | LABORATORY | | | | | | SERVICES, | | | | | | CORE | | + +---------+ + + + | ALT (SGPT) | 60 | 12 - 60 U/L | [facility] | | | | | | LABORATORY | | | | | | SERVICES, | | | | | | CORE | | + +---------+ + + + | ANION | 7 | 4 - 11 mmol/L [...] | + +---------+ + + + | BILI T CMNT | No Hemo | | [facility] | | | | | | LABORATORY | | | | | | SERVICES, | | | | | | CORE | | + +---------+ + + + | AST CMNT | [...] | + + + + + | [facility] | [address] | [place] [address] | | | SERVICES, CORE | [address] | | | + + + + + documented in this encounter Visit Diagnoses + + | Diagnosis | + + | Ankylosing spondylitis (HCC) Ankylosing spondylitis | + + documented in this encounter"
--- OUTSIDE RECORDS SUMMARY | ~2019-01-28 | XMS | Encounter Summary ---
Demographics + + + | Address | [address] | | | [place] [address] | + + + | Home Phone | | + + + | Preferred Language | Unknown | + + + | Marital Status | Single | + + + | Christian Affiliation | BAP | + + + [...] Team Providers + +------+ + | [employer] Engineer Name | Role | Phone | [...] 10/19/ | Telephone | Rheumatology at | Carole Hearn, | Other | | 2015 | | Rosette Garnett | [address] | | | | | [address] [facility] | [address] | | | | | [facility] | [place] [address] | | | | | Mailcode: [id number] | [phone] | | | | | Rosette Garnett | | | | | | [place], [place] | | | | | | [address] | | | | | | [phone] | | | +--------+ + + + [...]
--- OUTSIDE RECORDS SUMMARY | ~2019-01-28 | XMS | Encounter Summary ---
Demographics + + + | Address | [address] | | | [place] [address] | + + + | Home Phone | | + + + | Preferred Language | Unknown | + + + | Marital Status | Single | + + + | Hoahaoism Affiliation | BAP | + + + | Race | or | + + + | Ethnic Group | Not or | + + + Author + + + | Author | [facility] | + + + | Organization | [facility] | + + + | [...] Team Providers + +------+ + | Care Restaurant Maintenance Technician Name | Role | Phone | + +------+ + | rGacie Mariano MD | PCP | Unavailable | + +------+ + Reason for Visit +--------+ + | Reason | Comments | +--------+ + | Preop | | +--------+ + Encounter Details +--------+---------+ + + + | Date | Type | Department | Care Team | Description | +--------+---------+ + + + | 04/28/ | Office | Preoperative | Aneesh Montemayor | Preop examination; | | 2011 | Visit | [facility] at | T, OUTBOARD MOTOR TESTER-C,MPH | Diabetes mellitus | | | | [facility] | | screening; Other | | | | Stay [address] | | specified | | | | [facility] | | pre-operative | | | | Mailcode: [id number] | | examination; | | | | [facility] | | Ankylosing | | | | [address], [place] | | spondylitis (HCC); | | | | [phone] | | Localized | | | | [phone] | | osteoarthrosis not | | | | | | specified whether | | | | | | primary or | | | | | | secondary, pelvic | | | | | | region and thigh | +--------+---------+ + + + Anesthesia Record + + + + + | Procedure Name | Responsible | Anesthesia Start | Anesthesia Stop Time | | | Anesthesiologist | Time | | + + + + + | TOTAL HIP | Aubrey Mckeon MD | 05/09/12 1146 | 05/09/12 1523 | | ARTHROPLASTY (Left | | | | | Hip) | | | | + + + + + +----+---+ + + | Da | T | Event | Comment | | te | i | | | | | m | | | | | e | | | +----+---+ + + | 09 | 1 | Quick Note | POC INR 1.2. Last dose of LMWH was > 24H ago. | | /1 | 0 | | | | 7/ | 1 | | | | 20 | 5 | | | | 12 | | | | +----+---+ + + | | 1 | Pt. Check | Prior to anesthesia start, pt. Identified, examined, chart | | | 0 | | reviewed, PARQ held, anesthetic plan made or approved by | | | 1 | | attending anesthesiologist. NPO status confirmed as appropriate | | | 6 | | for procedure Preoperative evaluation: unchanged | +----+---+ + + | | 1 | Preprocedur | Pt ID confirmed, informed consent obtained, insertion site | | | 0 | e Checklist | marked, equipment available | | | 2 | | | | | 7 | | | +----+---+ + + | | 1 | Start PNB | | | | 0 | SS | | | | 2 | | | | | 7 | | | +----+---+ + + | | 1 | PNB SS Stop | | | | 0 | | | | | 5 | | | | | 3 | | | +----+---+ + + | | 1 | Eq Check | Anesthesia machine checked Equipment verified | | | 1 | | | | | 3 | | | | | 2 | | | +----+---+ + + | | 1 | An Start | | | | 1 | | | | | 4 | | | | | 6 | | | +----+---+ + + | | 1 | An Start | | | | 1 | Data | | | | 5 | | | | | 1 | | | +----+---+ + + | | 1 | Vitals | Monitors applied Vital signs checked Patient ready for anesthesia | | | 1 | Checked | | | | 5 | | | | | 5 | | | +----+---+ + + | | 1 | Std. Airway | | | | 2 | Mgt. | | | | 0 | | | | | 0 | | | +----+---+ + + | | 1 | Ready | | | | 2 | | | | | 0 | | | | | 7 | | | +----+---+ + + | | 1 | Abx | | | | 2 | Administere | | | | 1 | d | | | | 5 | | | +----+---+ + + | | 1 | Quick Note | Test dose of cefazolin given, no rash noted and VS within normal | | | 2 | | limits. Then rest of abx given in small increments. | | | 1 | | | | | 5 | | | +----+---+ + + | | 1 | Pause | | | | 2 | | | | | 3 | | | | | 0 | | | +----+---+ + + | | 1 | Incision | | | | 2 | | | | | 4 | | | | | 1 | | | +----+---+ + + | | 1 | Quick Note | Cell saver used during case | | | 3 | | | | | 2 | | | | | 0 | | | +----+---+ + + | | 1 | Local | | | | 3 | Anesthetic | | | | 4 | by Surgeon | | | | 0 | | | +----+---+ + + | | 1 | Surgery end | | | | 4 | | | | | 5 | | | | | 2 | | | +----+---+ + + | | 1 | An Extubate | Neuromuscular function Intact. Pharynx suctioned. Patient obeys | | | 5 | | commands. Adequate pulmonary mechanics. | | | 1 | | | | | 4 | | | +----+---+ + + | | 1 | an stop | | | | 5 | data | | | | 1 | | | | | 4 | | | +----+---+ + + | | 1 | an stop | | | | 5 | data | | | | 1 | | | | | 6 | | | +----+---+ + + | | 1 | Anesthesia | | | | 5 | End | | | | 2 | | | | | 3 | | | +----+---+ + + +------+ [...] +--------+ + + + | RETIRE | 05/09/12; Left Hip; No; 05/12/12; | 05/09/12 0000 by | 05/12/12 1558 by | | D - | 1558 | Jay Lewis RN | Kamilla Easton, | | Incisi | | | RN | | on | | | | +--------+ + + + | RETIRE | 05/09/12; 05/12/12; 0700; No; | 05/09/12 0000 by | 05/12/12 0700 by | | D - | Left Hip; Wound Vac | Jay Lewis RN | Genesis Camacho RN | | Drains | | | | | | | | | | (wound | | | | | s/surg | | | | | ical) | | | | +--------+ + + + | RETIRE | 05/09/12; 937; 05/12/12; 1545; | 05/09/12 09 by | 05/12/12 1545 by | | D - | No; 20; Right; Hand; No; Positive | EKATERINA ManciaP | Kamilla Easton, | | Periph | | | RN | | eral | | | | | Line | | | | +--------+ + + + | RETIRE | 05/09/12; 1217; 05/10/12; 1128; | 05/09/12 1217 by | 05/10/12 1128 by | | D - | No; Mo; 16FR | Jay Lewis RN | Cheyanne Morrison CNA | | Urinar | | | | | y Cath [...] this encounter Social History + + + +--------+------+ | [...] + + + | Blood Pressure | 163/82 | 04/28/2012 4:40 PM | | | | | PDT | | + + + + + | Pulse | 94 | 04/28/2012 4:40 PM | | | | | PDT | | + + + + + | Temperature | 36.6 C (97.9 F) | 04/28/2012 4:40 PM | | | | | PDT | | + + + + + | Respiratory Rate | 16 | 04/28/2012 4:40 PM | | | | | PDT | | + + + + + | Oxygen Saturation | 98% | 04/28/2012 4:40 PM | | | | | PDT | | + + + + + | Inhaled Oxygen | - | - | | | Concentration | | | | + + + + + | Weight | 113.9 kg (251 lb) | 04/28/2012 4:40 PM | | | | | PDT | | + + + + + | Height | 160 cm (5' 3") | 04/28/2012 4:40 PM | neck 47cm | | | | PDT | | + + + + + | Body Mass Index | 44.46 | 04/28/2012 4:40 PM | | | | | PDT | | + + + + + documented in this encounter Patient Instructions Patient Instructions Aneesh Montemayor FNP-C,MPH - 04/28/2012 5:17 PM PDT PREOPERATIVE INSTRUCTIONS On the day BEFORE your surgery, drink plenty of fluids and stay well hydrated Do not eat or drink ANYTHING after midnight the night before surgery, or 8 hours prior t o arrival for surgery. This includes water, coffee, candy, mints, gum. WARFARIN - Please follow instructions from the prescribing provider for the management of W arfarin in preparation for surgery. TAKE the following medications with a sip of water on the morning of surgery: LEVOTHYROXINE ORAL METOPROLOL TARTRATE TABLET MORPHINE ER 60 MG TABLET,EXTENDED RELEASE Take 60 mg by mouth every twelve hours. If needed - MORPHINE 15 MG CAPSULE Take 15 mg by mouth every four hours as needed. Do NOT take the following medications on the morning of surgery: Other medications not specifically mentioned are at your discretion as to taking or not taking on the morning of surgery. CHOLECALCIFEROL (VITAMIN D3) 5,000 UNIT CAPSULE CYCLOBENZAPRINE 10 MG TABLET LISINOPRIL 5 MG TABLET MEDICAL MARIJUANA HOLD 24 hours before surgery METHOCARBAMOL 500 MG TABLET Unless otherwise directed by your surgeon, do [...] for general purposes, use Tylenol as directed. If you are in doubt about any medications that you are taking, please contact our office . Information for Orthopedic Patients Having Joint Replacement Surgery You will have a nasal swab culture to screen for staph bacteria. If the culture turns p ositive (meaning that there is bacterial growth), you will be contacted by us with hilaria vega instructions on how to prepare for surgery. You will receive 3 additional informational papers regarding this topic. Please keep th michelle instructions handy for easy reference, especially in the week before surgery.Important G uidelines Do not shave the surgical area Do not smoke, drink alcohol or use recreational drugs f or 24 hours before your surgery Watch for any change in your health condition. Let your surgeon know right away if you do not feel well. Do not wear makeup, perfume, lotions, deodorant, powder or hairspray. Do not wear any jewelry to the hospital. Wear loose, comfortable clothing. Bring the case and solution for your contact lenses or wear your glasses. Leave all your valuables at home. Allow enough travel time so you re not late for your check in for surgery. Take a bath or shower and remember to shampoo your hair using your usual hair product bef ore your arrival at the hospital. Please remember to brush your teeth the night before and the morning of your procedure. Patient received CHG wipe packet during their Pre Op Medicine visit. Instructions reviewed with patient: when, where and how to use the CHG wipes. Patient verbally verified underst anding of instructions including placing one packet label on the instruction sheet and handi ng this instruction sheet to the pre op nurse on the AM of their surgery. Preventing post op complications Use an incentive spirometer or peep breathe [...] or walk. Surgery Check in Locations Admitting [facility] Surgery Check in Time: The OR (Operating Room) schedule is not finalized until the day before surgery. Someone from the OR (Operating Room) scheduling office at [facility] will call yo u with information regarding check in time for your surgery. If you have questions about th is, please call [phone] Going Home Your surgical team will decide when you are medically ready to go home. If you are released to go home on the same day as your procedure/surgery please note the following: You will not be able to drive. You will be required to have a competent adult drive you or accompany you by taxi or pub lic transportation on the day of discharge. It is also required that you have a competent adult assist you and look after you on the first night after you have undergone regional blocks (72 hours for patients going home with regional block pump), deep sedation, and/or general anesthesia. If you stayed in the hospital after surgery, please arrange for your ride to come for yo u around 9AM on the day your doctor says you can go home. Check out time is 11AM. If you have questions or concerns after you go home, call your doctor s office. If it is after office hours, call the [facility] para operator at [phone] and ask them to page your doc tor documented in this encounter Progress Notes Aneesh Montemayor FNP-C,MPH - 04/29/2012 8:54 PM PDTFormatting of this note might be d ifferent from the original. PREOPERATIVE CONSULT NOTE Consulting Provider: ALFREDITO LARSEN,MPH Referring Physician: Jorge Walker MD Primary Care Provider: Gracie Mariano MD Reason for Consult: Preoperative evaluation and risk assessment Proposed Procedure/Date: COMPLEX LEFT TOTAL HIP ARTHROPLASTY, 05/09/12 HISTORY OF PRESENT ILLNESS: Jorge L Cisneros is a 61 y.o. male here for preoperative evaluation for above procedure. The patient has a diagnosis of osteoarthrosis, hip; hip pain, bilateral; and ankylosing spo ndylitis. He has had chronic left hip pain worsening for 7 years. He is managing the hip clement n on average with 30mg of morphine sulfate per day and on a bad day he is taking up to 120 m g of morphine sulfate. The pain limits his mobility and he is using a walker to assist with ambulation. He reports that he was previously scheduled for a hip surgery a couple of years ago at [facility] and it was canceled for "dental issues." Per patient he had the dental problems taken care of a couple of years ago and he denies dental problems or pain. Hx of HTN, DM II, hypothyroidism, antiphospholipid syndrome, CVA. Within Defined Limits except as noted below Functional capacity is Low ROS: 12 system ROS Preoperative Patient Questionnaire was reviewed with the patient. Pert inent positives are noted in HPI and PMHX. Document will be scanned in [employer]. Current Medication List Name Sig CHOLECALCIFEROL (VITAMIN D3) 5,000 UNIT CAPSULE Take 5,000 Units by mouth once daily. CLOTRIMAZOLE 1 % TOPICAL CREAM Apply to affected area two times daily. Apply to affected a grisel for 7 consecutive days. CYCLOBENZAPRINE 10 MG TABLET Take 10 mg by mouth as needed. Do not use longer than 2-3 week s. HYDROCORTISONE 1 % TOPICAL CREAM Apply to affected area as needed. Apply a thin film to cl mai, dry skin and rub in gently. LEVOTHYROXINE ORAL Take 50 mcg by mouth once daily. LISINOPRIL 5 MG TABLET Take 10 mg by mouth once daily. MEDICAL MARIJUANA once daily. 3.5-7 grams a day METHOCARBAMOL 500 MG TABLET Take 500 mg by mouth two times daily. Half pill in morning half in evening METOPROLOL TARTRATE 25 MG TABLET Take 25 mg by mouth two times daily. MORPHINE ER 60 MG TABLET,EXTENDED RELEASE Take 60 mg by mouth. MORPHINE 15 MG CAPSULE Take 15 mg by mouth every four hours as needed. WARFARIN 1 MG TABLET Take 1 mg by mouth once daily. WARFARIN 5 MG TABLET Take 5 mg by mouth once daily. Allergies Allergen Reactions Codeine Rash Penicillins Rash Past Medical History Diagnosis Date Diabetes mellitus type II 2007 Diverticula, colon 2002 Ankylosing spondylitis Spinal fusion Neck fusion from Cardiac murmur Osteoarthrosis, hip 05/23/2009 right hip Antiphospholipid antibody syndrome DVT, lower extremity Osteoarthrosis, hip HTN (hypertension) Hypothyroidism Stroke 2009 x2 Diabetes mellitus with nephropathy Per outside records (10/09/2009) in media. Past Surgical History Procedure Date Colectomy 2002 partial, for diverticulitis Rotator cuff repair 1997 Family History Problem Relation Cancer Mother mesothelioma Heart Disease Father History Substance Use Topics Smoking status: Former Smoker -- 0.5 packs/day for 2 years Types: Cigarettes Smokeless tobacco: Never Used Comment: He quit in 1981 Alcohol Use: No PHYSICAL EXAM: Last Vitals: BP 163/82 | Pulse 94 | Temp (Src) 36.6 C (97.9 F) (Oral) | RR 16 | Ht 1.6 m (5' 3") | Wt 113.853 kg (251 lb) | SpO2 98% | BMI 44.46 kg/(m^2) Body mass index is 44.46 kg/(m^2). [facility] ROS Last edited 05/03/122002 by ALFREDITO Mata,MPH ROS Pulmonary: Within Defined Limits except as noted below no cough no shortness of breath no wheezing Pt. Has no asthma Cardiovascular: Per patient he had a hx of a cardiac murmur, but he never had any related problems. He walks between 50 yards to a ~200 yards 7 days per week. He also goes to physical therapy where he swims 2 days per week for 1/2 each time. Within Defined Limits except as noted below Functional Capacity: Low - chest pressure and syncope no CAD no CHF hypertension poorly controlled Valvular problems/murmurs: He reports that he was told many years ago he had a cardiac murmur and that he has had no problems with it. He believes that he had an echocardiogram ~7-8 years ago, possibly at [place] in [facility], he reports it was found to be normal. no pacemaker GI/Hepatic: Diverticula, colon (2002), he denies current digestive system problems. The patient called and reported that he is being evaluated for a GI condition and may have a colon procedure. Within Defined Limits except as noted below no GI Bleed no GERD No liver disease no hepatitis : He reports that he was told he was passing "protein" in his urine a couple of weeks ago and he was told by his PCP it was nothing concerning. Diabetes mellitus with nephropathy - Per outside records 10/09/09. Within Defined Limits except as noted below Endo: He reports that his highest blood sugar last month was 210 and he averages around 180 to 200. His A1C was 7.1% on 04/28/12. He reports that he was previously taking Metformin. Advised patient to follow-up with his PCP to discuss DM II and BP. Hypothyroidism - managing with Levothyroxine. Within Defined Limits except as noted below Diabetes: type 2, Neurological: He reports that he had 2 strokes 2 years ago. He denies any residual weakness. He has numbness to the ends of his toes. Within Defined limits except as noted below no seizures HX CORTICOSTEROID Current no psychiatric problem no dementia pain (Pain is currently to both hips and his left knee. He is managing with an average of 30mg of Morphine per day and up to 120 mg Morphine per day.) Current pain level: 10 In chronic pain: Yes MS: The patient has a diagnosis of osteoarthrosis, hip; hip pain, bilateral; and ankylosing spondylitis. He has had chronic left hip pain worsening for 7 years. He is managing the hip pain on average with 30mg of morphine sulfate per day and on a bad day he is taking up to 120 mg of morphine sulfate. The pain limits his mobility and he is using a walker to assist with ambulation. He reports that he was previously scheduled for a hip surgery a couple of years ago at [facility] and it was canceled for "dental issues." Per patient he had the dental problems taken care of a couple of years ago and he denies dental problems or pain. Within Defined Limits except as noted below arthritis Heme/Onc: Per patient DVT was in the left lower leg in August 2009. Per his friend, John Hyatt, and additional records in [facility] it was the right leg that had a DVT. The patient reports that he developed the blood clot after a long ride from [place] back to [place] after his previous hip surgery was canceled. He has a dx of antiphospholipid antibody syndrome and will be on lifelong Coumadin for this condition. His PCP manages his INR and his Coumadin doses. I discussed the patient with Dr. Jorge Moore. He will help follow-up with the labs that he recommended I order today which included an:Lupus inhibitor evaluation, plasma and a anticardiolipon GM, serum. Dr. Moore previously evaluated the patient for the hip surgery he was scheduled for last year that was reportedly canceled. Per his note (02/19/11): 1. Antiphospholipid antibody syndrome - patient with several positive tests for antiphospholipid antibodies - will repeat today but if persistently positive then would meet criteria for antiphospholipid antibody syndrome (positive tests x 2 at least 12 weeks apart and history of thrombosis). This would mandate indefinite anticoagulation with either warfarin or one of the new anticoagulants that do not require monitoring or have multiple food and drug interactions. There has been reported an increased incidence of antiphospholipid antibody syndrome in patients with ankylosis spondylosis. 2. Need for surgery while anticoagulated - would not recommend IVC filter for prophylaxis given his thrombosis was in August 2009. Would recommend this for bridgin. Stop warfarin 5 days before surgery 2. Day 3 before surgery start LMWH 1 mg/kg bid 3. Give last dose of LMWH am of the day before surgery 4. Would use pneumatic compression stockings during OR and until ambulatory 5. Would start LMWH 40 mg 24 hours after surgery if there is surgical hematosis 6. Restart maintenance dose of warfarin night of surgery 7. Would restart therapeutic dose of LMWH 48-72 hours after surgery and stop when INR is > 2 I agreed to forward the results of the labs ordered Lupus inhibitor evaluation, plasma and a anticardiolipon GM, serum 04/28/[address] Moore. I sent him an inbox message in [employer] with the results of the patient's INR (1.95) and APTT (46.8). 04/29/12- I spoke with Dr. Moore. I noted that the lab was unable to process the lupus test due to an insufficient amount of the specimen. He would like the patient to have the same recommendations that he previously noted for use of Lovenox in preparation for surgery. He agrees to have his office follow-up and send the patient the prescription for the Lovenox when a surgery date is scheduled. When a surgery date becomes available, I will notify Dr. Moore so that the prescription can be sent to the patient. I spoke with the patient on 05/02/12 who followed up with his PCP on file, Dr. Gracie Mariano. I notified patient that per Dr. Moore he will need to be bridged to Lovenox therapy in preparation for surgery. He called and informed Dr. Mariano and patient reports that Dr. Mariano will write the prescription for the patient's Lovenox in preparation for the surgery. Within Defined Limits except as noted below Pt. has: no active bleeding Bleeding diathesis / thrombotic bleeding DVT Previous Transfusions: transfusion hx Hx:Yes Malignancy: no cancer, Location: Metastasis: Skin: Within Defined Limits except as noted below No open wounds or sores No hx MRSA/VRE/Active skin infection Physical Exam General: Patients general appearance: Healthy, Alert, Mild distress and Cooperative Head & Neck/Airway: Neck Circumference: 47 cm. Dentition: Dentures-upper and missing teeth Date of last Dental Exam: 2 weeks ago Mallampati: II Neck Anatomy: Normal Lung Exam: breath sounds normal Cardiac: Rhythm: regular Rate: normal Abdominal: General Findings: Deferred Musculoskeletal: Neuro/Psych: alert Findings: Alert, oriented to person, place, time and Normal affect Integument: - open wounds Implants: None, LAB DATA REVIEWED/ORDERED Lab Results Component Value Date WBC 10.8 04/28/2012 HB 16.0 04/28/2012 HCT 48.7 04/28/2012 PLT 274 04/28/2012 MCV 84.0 04/28/2012 RDW 15.9 04/28/2012 Lab Results Component Value Date NA 137 04/28/2012 K 4.2 04/28/2012 CL 103 04/28/2012 BICARB 23 04/28/2012 BUN 14 04/28/2012 CR 0.81 04/28/2012 GLU 120 04/28/2012 CA 9.1 04/28/2012 AST 49 04/28/2012 ALT 60 04/28/2012 AP 96 04/28/2012 TBILI 0.9 04/28/2012 TP 8.7 04/28/2012 ALB 4.0 04/28/2012 Lab Results Component Value Date ABO A 04/28/2012 RH Positive 04/28/2012 Lab Results Component Value Date A1C 7.1 04/28/2012 EKG: Personally reviewed, NSR, machine reads left axis deviation, pulmonary disease pattern . Inverted T waves in aVR. Poor tracing in aVL, lead III, lead II and aVF. MEDICAL DECISION MAKIN ACC/ AHA Perioperative Guidelines1. Need for emergency noncardiac surgery? b. No -> Proceed to next step. 2. Active Cardiac Conditions? These conditions mandate further investigation and manageme nt. A. Acute DE within 7 days: no B. Unstable angina/Recent DE (7- 30 days): no C. Decompensated CHF: no D. Significant arrhythmia: None E. Severe valvular disease: NONE 3. Low risk surgery? b. No -> proceed with next step. 4. Good functional capacity? MET ASSESSMENT: 1. METS--eating, getting dressed, working a t a desk. 5. Assess Clinical Risk Factors? A. Ischemic heart disease: no B. Compensated / prior heart failure: no C. Diabetes mellitus (treated with insulin): no D. Renal insufficiency (Cr > 2): no E. 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 Surgery Risk: Unavailable Patient-related risk: Estimated ASA class -- 3 ASSESSMENT and RECOMMENDATIONS: Surgical/anesthesia risk assessment: Jorge L Cisneros is a 61 y.o. male with diagnosis of lo calized osteoarthrosis not specified whether primary or secondary, pelvic region and thigh a nd ankylosing spondylitis, scheduled for COMPLEX LEFT TOTAL HIP ARTHROPLASTY. According to ACC/AHA, this patient has 1-2 clinical risk factors and the recommendation is to proceed wit h planned surgery with HR control. Medication management recommendations: The patient was advised to continue all usual med ications except as noted in Patient Instructions (After Visit Summary given to pt) Perioperative antibiotic prophylaxis: Standard (Consider IV Vanco one hr before procedu re in pts with Cephalosporin/PCN allergy and/or with hx of MRSA) DM II- moderately controlled. He reports that his highest blood sugar last month was 210 a nd he averages around 180 to 200. His A1C was 7.1% on 04/28/12. He reports that he was previously taking Metformin. Advised patient to follow-up with his PCP to discuss DM II. Please note patient may require DM management perioperatively. HTN (poorly controlled, patient advised to follow-up with PCP for BP management. Please not e patient may require BP management perioperatively. Hypothyroidism- managing with Levothyroxine. Per patient DVT was in the left lower leg in August 2009. Per his friend, John Moscow, and additional records in [facility] it was the right leg that had a DVT. The patient reports that he developed the blood clot after a long ride from [place] back to [place] after his previou s hip surgery was canceled. Hx of antiphospholipid syndrome- currently on Warfarin, will bridge to Lovenox in preparati on for surgery per Dr. Moore, per patient, this prescription will be written by the pat tanmay's PCP on file Dr. Gracie Mariano. Anticoagulation prophylaxis may be required perioperatively. Hx of 2 strokes 2 years ago. This patient is medically stable for surgery. Further testing/optimization is not needed. Thank you for the opportunity to contribute to this patient's care. ALFREDITO LARSEN,MPH [facility] [address] [facility] [phone] signed by ALFREDITO Mata,MPH at 05/03/2012 8:13 PM PDTdocumented in this encounter Plan of Treatment + +------+--------+ + + | Name | Type | Priori | Associated Diagnoses | Order Schedule | | | | ty | | | + +------+--------+ + + | ANTICARDIOLIPIN GM, | Lab | Routin | Preop examination | Ordered: 04/28/2012 | | SERUM | | e | | | + +------+--------+ + + | LUPUS INHIBITOR | Lab | Routin | Preop examination | Ordered: 04/28/2012 | | EVALUATION, PLASMA | | e | | | + +------+--------+ + + | TSH | Lab | Routin | Preop examination | Ordered: 04/28/2012 | | | | e | | | + +------+--------+ + + documented as of this encounter Procedures + +--------+ + + + | Procedure Name | Priori | Date/Time | Associated Diagnosis | Comments | | | ty | | | | + +--------+ + + + | PROCEDURE NOTE | Routin | 09/27/2015 | | Results for this | | | e | 1:26 AM | | procedure are in the | | | | PST | | results section. | + +--------+ + + + | HEMOGLOBIN A1C, POC | Routin | 04/28/2012 | Diabetes mellitus | Results for this | | | e | 5:40 PM | screening | procedure are in the | | [...] + + | INR | Routin | 04/28/2012 | Preop examination | Results for this | | | e | 4:31 PM | | procedure are in the | | | | PDT | | results section. | + +--------+ + + + | COMPLETE METABOLIC | Routin | 04/28/2012 | Preop examination | Results for this | | SET | e | 4:31 PM | | procedure are in the | | (NA,K,CL,CO2,BUN,CRE | | PDT | | results section. | | AT,GLUC,CA,AST,ALT,B | | | | | | AARON TOTAL,ALK | | | | | | PHOS,ALB,PROT TOTAL) | | | | | + +--------+ + + + | CBC ONLY | Routin | 04/28/2012 | Preop examination | Results for this | | | e | 4:31 PM | | procedure are in the | | | | PDT | | results section. | + +--------+ + + + | APTT (ACT. PART. | Routin | 04/28/2012 | Preop examination | Results for this | | THROMBO TIME) | e | 4:31 PM | | procedure are in the | | | | PDT | | results section. | + +--------+ + + + | TYPE AND SCREEN | Routin | 04/28/2012 | Preop examination | Results for this | | | e | 4:31 PM | | procedure are in the | | | | PDT | | results section. | + +--------+ + + + | CULTURE, NASAL BACTI | Routin | 04/28/2012 | Preop examination | Results for this | | | e | 4:31 PM | | procedure are in the | | | | PDT | | results section. | + +--------+ + + + | TSH | Routin | 04/28/2012 | | Results for this | | | e | 4:31 PM | | procedure are in the | | | | PDT | | results section. | + +--------+ + + + documented in this encounter Results PROCEDURE NOTE (09/27/2015 1:26 AM PST) + + | Transcriptions | + + | Sameera Patel - 04/29/2012 4:24 PM PDT | + + HEMOGLOBIN A1C, POC (04/28/2012 5:40 PM PDT) + +---------+ + + + | Component | Value | Ref Range | Performed | Pathologist | | | | | At | Signature | + +---------+ + + + | HEMOGLOBIN | 7.1 (H) | 4.0 - 5.7 % | [facility] - | | | A1C,POC | | | [facility] | | | [...] [facility] | [address] | [place], [place] | | | [facility] | [address] | [address] | | | TESTS | | | | + + + + + 12 LEAD ECG (04/28/2012 4:57 PM PDT) + + + + + + | Component | Value | Ref Range | Performed | Pathologist | | | | | At | Signature | + + + + + + | VENTRICULAR | 93 | BPM | [facility] | | | RATE | | | OF | | | | | | CARDIOLOGY | | + + + + + + | ATRIAL RATE | 93 | BPM | [facility] | | | | | | OF | | | | | | CARDIOLOGY | | + + + + + + | P-R | 164 | ms | [facility] | | | INTERVAL | | | OF | | | | | | CARDIOLOGY | | + + + + + + | QRS | 94 | ms | [facility] | | | DURATION | | | OF | | | | | | CARDIOLOGY | | + + + + + + | QT | 346 | ms | [facility] | | | | | | OF | | | | | | CARDIOLOGY | | + + + + + + | QTC | 430 | ms | [facility] | | | | | | OF | | | | | | CARDIOLOGY | | + + + + + + | P AXIS | 18 | degrees | [facility] | | | | | | OF | | | | | | CARDIOLOGY | | + + + + + + | R AXIS | -56 | degrees | [facility] | | | | | | OF | | | | | | CARDIOLOGY | | + + + + + + | T AXIS | 34 | degrees | [facility] | | | | | | OF | | | | | | CARDIOLOGY | | + + + + + + | EKG | Normal sinus rhythmLeft | | [facility] | | | DIAGNOSIS | axis deviationInferior | | OF | | | | infarct , age | | CARDIOLOGY | | | | undeterminedAbnormal | | | | | | ECG"I have personally | | | | | | interpreted this report, | | | | | | either alone or with a | | | | | | trainee."Confirmed by | | | | | | YANA STORY ([id number]) on | | | | | | 04/30/2012 9:31:48 AM | | | | + + + + + + + + | Specimen | + + | | + + + + + | Narrative | Performed At | + + + | Please click | [facility] | | on view image for the detailed interpretation from [employer] results. | CARDIOLOGY | + + + + + + + + | Performing | Address | City/State/Zipcode | Phone Number | | Organization | | | | + + + + + | [facility] | [address] | [place], [place] | | | CARDIOLOGY | [address] | [address] | | + + + + + TSH (04/28/2012 4:31 PM PDT) + +-------+ + + + | Component | Value | Ref Range | Performed | Pathologist | | | | | At | Signature | + +-------+ + + + | TSH | 4.72 | 0.34 - 5.60 | [facility] | | | | | uIU/ml | REGIONAL | | | | | | LABORATORY | | + +-------+ + + + + + | Specimen | + + | | + + + + + | Narrative | Performed At | + + + | [facility]) | [facility] | | [facility] | REGIONAL | | [address] | LABORATORY | | [place] [address] | | + + + + + + + + | Performing | Address | City/State/Zipcode | Phone Number | | Organization | | | | + + + + + | [facility] | [address] | [place] [address] | | | LABORATORY | | | | + + + + + TYPE AND SCREEN (04/28/2012 4:31 PM PDT) + + + + + + | Component | Value | Ref Range | Performed | Pathologist | | | | | At | Signature | + + + + + + | ABO GROUP | A | | [facility] | | | | | | DEPARTMENT | | | | | | OF | | | | | | PATHOLOGY | | + + + + + + | RH TYPE | Positive | | [facility] | | | | | | DEPARTMENT | | | | | | OF | | | | | | PATHOLOGY | | + + + + + + | Antibody | Negative | | [facility] | | | Screen | | | DEPARTMENT | | | | | | OF | | | | | | PATHOLOGY | | + + + + + + + + | Specimen | + + | Blood - Blood | + + + + + + + | Performing | Address | City/State/Zipcode | Phone Number | | Organization | | | | + + + + + | [facility] | [address] | [place] [address] | | | PATHOLOGY | [address] | | | + + + + + CULTURE, NASAL BACTI (04/28/2012 4:31 PM PDT) + + + + + + | Component | Value | Ref Range | Performed | Pathologist | | | | | At | Signature | + + + + + + | SOURCE BODY | Nasal Oral mucosa | | [facility] | | | SITE | | | REGIONAL | | | | | | LAB-MICRO | | + + + + + + | CULTURE | Nasal Culture | | [facility] | | | RESULT | | | REGIONAL | | | | Source...............: | | LAB-MICRO | | | | Nasal Oral mucosa | | | | | | Culture: | | | | | | 1+ Normal | | | | | | Varsha | | | | | | | | | | | | | | | | | | Final ID | | | | | | Final Report | | | | + + + + + + + + | Specimen | + + | Oral mucosa - Nasal | + + + + + + + | Performing | Address | City/State/Zipcode | Phone Number | | Organization | | | | + + + + + | [facility] | [address] | [place] [address] | | | LAB-MICRO | | | | + + + + + APTT (ACT. PART. THROMBO TIME) (04/28/2012 4:31 PM PDT) + + + + + + | Component | Value | Ref Range | Performed | Pathologist | | | | | At | Signature | + + + + + + | APTT | 46.8 (H)Comment: | 26.0 - 36.0 | [facility] | | | | APTT | seconds | DEPARTMENT | | | | Therapeutic | | OF | | | | Range | | PATHOLOGY | | | | | | | | | | (75-120) | | | | | | sec | | | | | | Heparin levels of | | | | | | 0.35-0.7 U/mL | | | | + + + + + + + + | Specimen | + + | Blood - Blood | + + + + + + + | Performing | Address | City/State/Zipcode | Phone Number | | Organization | | | | + + + + + | [facility] | [address] | [place] [address] | | | PATHOLOGY | [address] | | | + + + + + INR (04/28/2012 4:31 PM PDT) + + + + + + | Component | Value | Ref Range | Performed | Pathologist | | | | | At | Signature | + + + + + + | INR | 1.95 (H)Comment: | 0.90 - 1.20 INR | [facility] | | | | INR | | DEPARTMENT | | | | Therapeutic ranges for | | OF | | | | full | | PATHOLOGY | | | | anticoagulation: | | | | | | INR for Venous | | | | | | Thromboembolism | | | | | | | | | | | | (2.0-3.0) | | | | | | INR INR for | | | | | | most patients with mech. | | | | | | | | | | | | valves (2.5-3.5) | | | | | | INR | | | | + + + + + + + + | Specimen | + + | Blood - Blood | + + + + + + + | Performing | Address | City/State/Zipcode | Phone Number | | Organization | | | | + + + + + | [facility] | [address] [address] | [place] [address] | | | PATHOLOGY | [address] | | | + + + + + CBC ONLY (04/28/2012 4:31 PM PDT) + + + + + + | Component | Value | Ref Range | Performed | Pathologist | | | | | At | Signature | + + + + + + | WHITE CELL | 10.8 | 4.4 - 11.0 K/cu | [facility] | | | COUNT | | mm | DEPARTMENT | | | | | | OF | | | | | | PATHOLOGY | | + + + + + + | RED CELL | 5.80 | 4.50 - 5.90 | [facility] | | | COUNT | | M/cu mm | DEPARTMENT | | | | | | OF | | | | | | PATHOLOGY | | + + + + + + | HEMOGLOBIN | 16.0 | 13.5 - 17.5 | [facility] | | | | | g/dL | DEPARTMENT | | | | | | OF | | | | | | PATHOLOGY | | + + + + + + | HEMATOCRIT | 48.7 | 41.0 - 53.0 % | [facility] | | | | | | DEPARTMENT | | | | | | OF | | | | | | PATHOLOGY | | + + + + + + | MCV | 84.0 | 80.0 - 96.0 fL | [facility] | | | | | | DEPARTMENT | | | | | | OF | | | | | | PATHOLOGY | | + + + + + + | MCHC | 32.9 (L) | 33.4 - 35.5 | [facility] | | | | | g/dL | DEPARTMENT | | | | | | OF | | | | | | PATHOLOGY | | + + + + + + | RDW | 15.9 (H) | 11.5 - 15.0 % | [facility] | | | | | | DEPARTMENT | | | | | | OF | | | | | | PATHOLOGY | | + + + + + + | PLATELET | 274 | 150 - 400 K/cu | [facility] | | | COUNT | | mm | DEPARTMENT | | | | | | OF | | | | | | PATHOLOGY | | + + + + + + + + | Specimen | + + | Blood - Blood | + + + + + + + | Performing | Address | City/State/Zipcode | Phone Number | | Organization | | | | + + + + + | [facility] DEPARTMENT | [address] | [place] [address] | | | PATHOLOGY | [address] | | | + + + + + COMPLETE METABOLIC SET (NA,K,CL,CO2,BUN,CREAT,GLUC,CA,AST,ALT,BILI TOTAL,ALK PHOS,ALB,PROT TOTAL) (04/28/2012 4:31 PM PDT) + + + + + + | Component | Value | Ref Range | Performed | Pathologist | | | | | At | Signature | + + + + + + | GLUCOSE, | 120 (H) | 60 - 99 mg/dL | [facility] | | | PLASMA | | | DEPARTMENT | | | (LAB) | | | OF | | | | | | PATHOLOGY | | + + + + + + | BUN, PLASMA | 14 | 6 - 20 mg/dL | [facility] | | | (LAB) | | | DEPARTMENT | | | | | | OF | | | | | | PATHOLOGY | | + + + + + + | CREATININE | 0.81 | 0.70 - 1.30 | [facility] | | | PLASMA | | mg/dL | DEPARTMENT | | | (LAB) | | | OF | | | | | | PATHOLOGY | | + + + + + + | TOTAL | 8.7 (H) | 6.1 - 7.9 g/dL | [facility] | | | PROTEIN, | | | DEPARTMENT | | | PLASMA | | | OF | | | (LAB) | | | PATHOLOGY | | + + + + + + | ALBUMIN, | 4.0 | 3.5 - 4.7 g/dL | [facility] | | | PLASMA | | | DEPARTMENT | | | (LAB) | | | OF | | | | | | PATHOLOGY | | + + + + + + | CALCIUM, | 9.1 | 8.6 - 10.2 | [facility] | | | PLASMA | | mg/dL | DEPARTMENT | | | (LAB) | | | OF | | | | | | PATHOLOGY | | + + + + + + | BILIRUBIN | 0.9 | 0.3 - 1.2 mg/dL | [facility] | | | TOTAL | | | DEPARTMENT | | | | | | OF | | | | | | PATHOLOGY | | + + + + + + | ALK PHOS | 96 | 56 - 119 U/L | [facility] | | | | | | DEPARTMENT | | | | | | OF | | | | | | PATHOLOGY | | + + + + + + | AST(SGOT) | 49 (H) | 15 - 41 U/L | [facility] | | | | | | DEPARTMENT | | | | | | OF | | | | | | PATHOLOGY | | + + + + + + | SODIUM, | 137 | 136 - 145 | [facility] | | | PLASMA | | mmol/L | DEPARTMENT | | | (LAB) | | | OF | | | | | | PATHOLOGY | | + + + + + + | POTASSIUM, | 4.2 | 3.4 - 5.0 | [facility] | | | PLASMA | | mmol/L | DEPARTMENT | | | (LAB) | | | OF | | | | | | PATHOLOGY | | + + + + + + | CHLORIDE, | 103 | 97 - 108 mmol/L | [facility] | | | PLASMA | | | DEPARTMENT | | | (LAB) | | | OF | | | | | | PATHOLOGY | | + + + + + + | TOTAL CO2, | 23 | 21 - 32 mmol/L | [facility] | | | PLASMA | | | DEPARTMENT | | | (LAB) | | | OF | | | | | | PATHOLOGY | | + + + + + + | ALT (SGPT) | 60 | 12 - 60 U/L | [facility] | | | | | | DEPARTMENT | | | | | | OF | | | | | | PATHOLOGY | | + + + + + + | EGFR | > 60 | >60 mL/min | [facility] | | | - | | | DEPARTMENT | | | [place] | | | OF | | | | | | PATHOLOGY | | + + + + + + | EGFR NON | > 60Comment: GFR is | >60 mL/min | [facility] | | | -SARAH | estimated using the MDRD | | DEPARTMENT | | | RICAN | equation recommended by | | OF | | | | theNational Kidney | | PATHOLOGY | | | | Disease Education | | | | | | Program. Estimated GFR | | | | | | Interpretive | | | | | | Information: <60 | | | | | | mL/min/1.73 sq m | | | | | | Chronic Kidney Disease | | | | | | <15 mL/min/1.73 sq | | | | | | m Kidney Failure | | | | | | Estimated GFR greater | | | | | | than 60mL/min/1.73 is of | | | | | | limited clinical Value. | | | | | | The MDRD equation is | | | | | | not valid in the | | | | | | following situations: - | | | | | | Patients under 18 years | | | | | | of age - Severe | | | | | | malnutrition or obesity | | | | | | - Vegetarian diet - | | | | | | Rapidly changing kidney | | | | | | function | | | | + + + + + + | ANION GAP | 11 | 4 - 11 mmol/L | [facility] | | | | | | DEPARTMENT | | | | | | OF | | | | | | PATHOLOGY | | + + + + + + | ANION | 11 | 4 - 11 mmol/L | [facility] | | | GAP(ALB | | | DEPARTMENT | | | CORRECTED) | | | OF | | | | | | PATHOLOGY | | + + + + + + + + | Specimen | + + | Blood - Blood | + + + + + | Narrative | Performed At | + + + | New reference ranges for ALT, Amylase, Total CO2, GGT, Lipase and | [facility] | | Sodium effective 04/05/12 | DEPARTMENT OF | | | PATHOLOGY | + + + + + + + + | Performing | Address | City/State/Zipcode | Phone Number | | Organization | | | | + + + + + | [facility] | [address] | [place] [address] | | | PATHOLOGY | [address] | | | + + + + + documented in this encounter Visit Diagnoses + + | Diagnosis | + + | Preop examination Preoperative examination, unspecified | + + | Diabetes mellitus screening Screening for diabetes mellitus | + + | Other specified pre-operative examination | + + | Ankylosing spondylitis (HCC) Ankylosing spondylitis | + + | Localized osteoarthrosis not specified whether primary or secondary, pelvic region and | | thigh | + + documented in this encounter
--- OUTSIDE RECORDS SUMMARY | ~2019-01-28 | XMS | Encounter Summary ---
Demographics + + + | Address | [address] | | | [place] [address] | + + + | Home Phone | | + + + | Preferred Language | Unknown | + + + | Marital Status | Single | + + + | Yarsani Affiliation | BAP | + + + [...] Team Providers + +------+ + | Care Director Of Sales Name | Role | Phone | + [...] Closed | | Orthopedics | Diagnoses | Dhiraj | Kamila | | | | | Ankylosing | Carole Townsend MD | MD Leroy | | | | | spondylitis | [address] | [address] | | | | | ([facility]) | Wilfrido | Wilfrido Hernandez | | | | | Heterotopic | Mary Ruiz | [place], | | | | | ossification | [place], [place] | [place] | | | | | of bone | [address] | [address] | | | | | Right | Phone: | Phone: | | | | | shoulder | [phone] | [phone] | | | | | pain Rt | Fax: | Fax: | | | | | shoulder | [phone] | [phone] | | | | | Procedures | | | | | | | CONSULT TO | | | | | | | ORTHOPEDICS | | | | | | | AND | | | | | | | REHABILITATI | | | | | | | ON | | | +--------+--------+ + + + + Reason for Visit + + + | Reason | Comments | + + + | Referral Needed | | + + + Encounter Details +--------+ + + + + | Date | Type | Department | Care Team | Description | +--------+ + + + + | 11/06/ | Telephone | Rheumatology at | Carole Hearn, | Referral Needed | | 2015 | | [facility] | [address] | | | | | [address] | [address] | | | | | [facility] | [place] [address] | | | | | Mailcode: [id number] | [phone] | | | | | Rosette [facility]ett | | | | | | [place], [place] | | | | | | [address] | | | | | | [phone] | | | +--------+ + + + [...] Primary Ankylosing spondylitis | + + | Heterotopic ossification of bone Other disorders of bone and cartilage | + + | Right shoulder pain Pain in joint, shoulder region | + + documented in this encounter"
--- OUTSIDE RECORDS SUMMARY | ~2019-01-28 | XMS | Encounter Summary ---
Demographics + + + | Address | [address] | | | [place] [address] | + + + | Home Phone [...] Author + + + | Author | [facility] | + + + | Organization | [facility] | + + [...] Team Providers + +------+ + | Care Software Development Analyst Name | Role | Phone | + +------+ + | Gracie Mariano MD | PCP | Unavailable | + +------+ + Encounter Details +--------+ + + + + | Date | Type | Department | Care Team | Description | +--------+ + + + + | 03/02/ | Hospital | Cardiac | Neftaly Corado Ecg Tech | | | 2012 | Encounter | Non-Invasive Testing | [address] | | | | | at [facility] | [facility] | | | | | [address] | [place] [address] | | | | | [facility] | | | | | | Mailcode: [id number] | | | | | | [place] | | | | | | [facility], | | | | | | [place] [address] | | | | | | [phone] | | | +--------+ + + + [...] | 12 LEAD ECG | Routin | 03/02/2013 | Preoperative | Results for this | | | e | 11:06 AM | examination | procedure are in the | | | | PDT | Osteoarthrosis, hip | results section. | | | | | Ankylosing | | | | | | spondylitis (HCC) | | + +--------+ + + + documented in this encounter Results 12 LEAD ECG (03/02/2013 11:06 AM PDT) + + + + + + | Component | Value | Ref Range | Performed | Pathologist | | | | | At | Signature | + + + + + + | VENTRICULAR | 62 | BPM | [facility] | | | RATE | | | OF | | | | | | CARDIOLOGY | | + + + + + + | ATRIAL RATE | 62 | BPM | [facility] | | | | | | OF | | | | | | CARDIOLOGY | | + + + + + + | P-R | 196 | ms | [facility] | | | INTERVAL | | | OF | | | | | | CARDIOLOGY | | + + + + + + | QRS | 100 | ms | [facility] | | | DURATION | | | OF | | | | | | CARDIOLOGY | | + + + + + + | QT | 400 | ms | [facility] | | | | | | OF | | | | | | CARDIOLOGY | | + + + + + + | QTC | 406 | ms | [facility] | | | | | | OF | | | | | | CARDIOLOGY | | + + + + + + | P AXIS | 33 | degrees | [facility] | | | | | | OF | | | | | | CARDIOLOGY | | + + + + + + | R AXIS | -53 | degrees | [facility] | | | | | | OF | | | | | | CARDIOLOGY | | + + + + + + | T AXIS | 32 | degrees | [facility] | | | | | | OF | | | | | | CARDIOLOGY | | + + + + + + | EKG | Normal sinus | | [facility] | | | DIAGNOSIS | rhythmPossible Left | | OF | | | | atrial enlargementLeft | | CARDIOLOGY | | | | axis deviationIncomplete | | | | | | right bundle branch | | | | | | blockAbnormal | | | | | | ECGConfirmed by | | | | | | BOB CRABTREE | | | | | | ([id number]) on 03/04/2013 | | | | | | 7:58:54 AM | | | | + + + + + + + + | Specimen | + + | | + + + + + | Narrative | Performed At | + + + | Please click | [facility] | | on view image for the detailed interpretation from Noah results. | CARDIOLOGY | + + + + + | Procedure Note | + + | Interface, Cardiology Results - 03/04/2013 8:00 AM PDT Please click on view image | | for the detailed interpretation from Noah results. | + + + + + + + | Performing | Address | City/State/Zipcode | Phone Number | | Organization | | | | + + + + + | [facility] | [address] | [place], [place] | | | CARDIOLOGY | [facility] | [address] | | + + + + + documented in this encounter Visit Diagnoses Not on filedocumented in this encounter"
--- OUTSIDE RECORDS SUMMARY | ~2019-01-28 | XMS | Encounter Summary ---
Demographics + + + | Address | [address] | | | [place] [address] | + + + | Home Phone [...] + + + | Author | [facility] | + + + | Organization | [facility] | + + + | Address | [...] Team Providers + +------+ + | Care Title Searcher Name | Role | Phone | + [...] | Rheumatology | Diagnoses | Scott | [facility] | | | | | Ankylosing | MD Adriano | [address] | | | | | spondylitis | [address] | [place] | | | | | ([facility]) | Ave | [address] | | | | | Procedures | [place], [place] | Mailcode: | | | | | CONSULT TO | [id number] | OP09 | | | | | RHEUMATOLOGY | | Physicians | | | | | | | [address] | | | | | | | Floor | | | | | | | [place], [place] | | | | | | | [address] | | | | | | | Phone: | | | | | | | [phone] | | | | | | | Fax: | | | | | | | [phone] | +--------+--------+ + + + + Encounter Details +--------+---------+ + + + | Date | Type | Department | Care Team | Description | +--------+---------+ + + + | 12/07/ | Office | Rheumatology at | Yulisa Hearn, | Ankylosing | | 2013 | Visit | Rosette Garnett | [address] | spondylitis (HCC) | | | | [address] [facility] | [address] | (Primary Dx) | | | | [facility] | [place] [address] | | | | | Mailcode: [id number] | [phone] | | | | | Rosette Garnett | | | | | | [place], [place] | | | | | | [address] | | | | | | [phone] | | | +--------+---------+ + + + [...] + + + | Blood Pressure | 119/80 | 12/07/2013 8:27 AM | | | | | PDT | | + + + + + | Pulse | 60 | 12/07/2013 8:27 AM | | | | | PDT [...] + + + + | Weight | 117 kg (258 lb) | 12/07/2013 8:27 AM | | | | | PDT | | + + + + + | Height | 167.6 cm (5' 6") | 12/07/2013 8:27 AM | | | | | PDT | | + + + + + | Body Mass Index | 41.64 | 12/07/2013 8:27 AM | | | | | PDT | | + + + + + documented in this encounter Progress Notes Celina Soto MD - 12/08/2013 9:53 AM PDTI have evaluated the patient with Dr Hearn and zhen mcneal with the history, findings, assessment and plan. Celina Soto M.D. [address] [facility] Mailcode: [id number] [facility] [address] Yulisa Winchester MD - 8:26 AM PDT RHEUMATOLOGY FOLLOW UP-12/07/13 Last visit 05/05 CC: Chief Complaint Patient presents with Ankylosing spondylitis HPI: This is a 62 y.o. male, here for follow up of ankylosing spondylitis. -Diagnosed with in late 70' in [place] by his PCP, but was never referred to rheumatol ogy or treated. Symptoms started when he was 17 yo with inflammatory neck and low back pain treated with NSAIDs until he was placed on ACO with coumadin for APLS diagnosed in 2010. 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 H is hypercoagulable work-up revealed at that time positive LA, ACL Ig A and he was started on lifelong ACO with coumadin. He became completely ankylosed over the last 2 years, not being able to sit or bend. He use s a lifting chair which tilts in order to sleep as he can not flex his hips. His neck is als o ankylosed with stooped posture and no ROM. He had a L SUSHIL on 05/05 and he is supposed to have a R SUSHIL and L TKA in the near future. His pelvis xray done in 2011 shows B/L SI joints ankylosis, pubic simphysis ankylosis and l umbar spine syndesmophytes Had cholecystectomy in 03/04 and he has a residual abdominal hernia. -11/20-GI visit-segmental colonic resection for diverticular disease. He has a history of 3- 4 unremarkable colonoscopies over the last 10-15 years. Last colonoscopy revealed ulceration at the ileocecal valve with an inflammatory infiltrate which could be related to , less likely IBD Today's visit: Mr Cisneros comes for follow up of his He did not start humira awaiting R hip surgery. This was postponed sec to his uncontrolled [id number] in 07/05. Has pain and stiffness in his spine from neck to hips and is stiff for almost the whole day s Sleeps in a recliner chair, can not sit Takes morphine for pain, can not take NSAIDs being on coumadin and sec to his bowel ulcer Has few episodes of loose BM daily, better on marijuana He never had peripheral arthritis, no skin [...] se refer to patient queationnaire scanned in [facility] PMH: Past Medical History Diagnosis Date Diabetes [...] 06/2013 Meds: Current Outpatient Prescriptions Medication Sig acetaminophen 650 mg Oral tablet Take 1 Tab by mouth every six hours. adalimumab 40 mg/0.8 mL Subcutaneous Pen Injector [...] Tab by mouth two times daily. warfarin 1 mg oral tablet Take 1 mg by mouth once daily. warfarin 5 mg Oral tablet Take [...] is no history of GI. Rapid 3 and BASDAI to be scanned Exam: Vital Signs: BP 119/80 | Pulse 60 | Ht 1.676 m (5' 6") | Wt 117.028 kg (258 lb) | BMI 41.66 kg/(m^2) Pain Score: 6 Gen: Well nourished, [...] L hip flexio n 30 deg, WTO 22, MATT 32 cm, Miki 0, lat flexion 0, Skin: no abnormalities Neuro: grossly non focal Labs: Recent Labs 06/29/13 1319 12/07/13 0931 WBC 8.89 7.90 RBC 5.49 5.22 HB 15.5 14.9 HCT 46.3 44.9 PLT 255 254 NEUTROPERC 60.5 59.8 LYMPHPERC 26.5 26.5 MONOPERC 7.1 7.0 BASOPERC 1.0 1.1 EOSPERC 4.5* 5.2* Recent Labs 12/07/13 0931 NA 136 K 4.1 CL 102 BICARB 28 BUN 14 CR 0.82 GLU 134* CA 8.9 AST 38 ALT 60 AP 83 TBILI 0.8 TP 7.9 ALB 3.6 Lab Results Component Value Date CRP 2.5 12/07/2013 CRP 2.1 05/16/2013 Lab Results Component Value Date ESR 18 05/16/2013 Colonoscopy 12/28/12 ([facility]) -ulcerated ICV (previous Bx with hyperplastic changes) [...] bilateral hip arthrop athy and probable erosions MO PELVIS 1 VIEW, 05/10/12 There has been [...] for this reason, who also has longstanding (inflammatory back pain when he was 17 yo, managed transiently with N SAIDs and pain medication afterwards). No peripheral arthritis, no Dactilytis, no skin [...] in regards to his quality of life. He also has an ulceration at the ileo-cecal valve with inflammatory changes on biospy, whic h can be sec to vs IBD, under work-up by GI. Starting anti-TNF might also be of benefit in this instance as well. He did not start adalimumab which was ordered after last visit based on his preference, giv en anticipated hip surgery. Hip surgery was postponed due to uncontrolled diabetes, which seems to be aggressively daniel ged right now and hopefully A1c better. We are planning to start humira as probably his ortho surgery is not planned yet and he can stop it 1 months prior to surgery. Will notify Dr Walker re our management plans and also Dr Chavez. can be associated with IgA nephropathy, amyloidosis, Ao insufficiency and we keep on curt ng alert and monitoring for those. Plan: 1. Check CBC, CMP, UA, CRP, HbA1c, vit D, CXR was normal 2. Will Discuss with ortho and GI, but advised to start humira 40 mg sc QOW. PARQ held and reiterated risks and SE. Had teaching from our clinical pharmacist last visit. 3. Bone health- recommended vit D 1000 U and calcium 600 mg, DEXA not helpful. We can consi flako starting bisphosphonates after surgery 7. F/U in 3 months I reviewed the patient s questionnaire which included more than 10 review of systems, ans wered all questions raised, and provided counseling and education. Patient seen and examined with Dr Soto who agrees with assessment and plan YULISA HEARN MD RHEUMATOLOGY FELLOWS [address] [facility] Mailcode: [id number] [place] [address] documented in this en counter Plan of Treatment Not on filedocumented as of this encounter Results HEMOGLOBIN A1C, BLOOD (12/07/2013 9:31 AM PDT) + + + + + + | Component | Value | Ref Range | Performed | Pathologist | | | | | At | Signature | + + + + + + | HEMOGLOBIN | 6.9 (H)Comment: Hbg A1c | 4.3 - 5.6 % | [facility] | | | A1C | Interpretive | [...] | + + + + + | [facility] | [address] | [place] [address] | | | SERVICES, SPECIAL | PARK [...] + | [place] [facility] - | [address] | [place] [address] | | | [place] | | | [...] | | | LABORATORY | | | CIT[place] | | | SERVICES, | | | [...] | + + + + + | [facility] [employer] | [address] | [place] [address] | | | [place], [place] | [address] | | | + + + + + documented in this encounter Visit Diagnoses + + | Diagnosis | + + | Ankylosing spondylitis (HCC) - Primary Ankylosing spondylitis | + + documented in this encounter
--- OUTSIDE RECORDS SUMMARY | ~2019-01-28 | XMS | Encounter Summary ---
Demographics + + + | Address | [address] | | | [place] [address] | + + + | Home Phone [...] Author + + + | Author | [facility] | + + + | Organization | [facility] | + + + | Address [...] Team Providers + +------+ + | Care Bar Tacker Sewing Machine Name | Role | Phone | + [...] | | 2013 | | Center at [facility] [address] | [address] | (Scheduling ) | | | | [address] | [place] [address] | | | | | Mailcode: [place] | [phone] | | | | | [facility] Health and | | | | | | [facility], [place] [address] | | | | | | [place], [place] | | | | | | [address] | | | | | | [phone] | | | +--------+ + + + [...]
--- OUTSIDE RECORDS SUMMARY | ~2019-01-28 | XMS | Encounter Summary ---
Demographics + + + | Address | [address] | | | [place] [address] | + + + | Home Phone | | + + + | Preferred Language | Unknown | + + + | Marital Status | Single | + + + | Jew Affiliation | BAP | + + + [...] Providers + +------+ + | Care Director Behavioral Health Name | Role | Phone | + +------+ + | Gracie Mariano MD | PCP | Unavailable | + +------+ + Reason for Visit + + + | Reason | Comments | + + + | Hip joint pain | | + + + Physical Therapy (Routine) +--------+--------+ + + + + | Status | Reason | Specialty | Diagnoses / | Referred By | Referred To | | | | | Procedures | Contact | Contact | +--------+--------+ + + + + | Closed | | Physical | Diagnoses | Walker, | [facility] | | | | Therapy | | Jorge Paige MD | [address] | | | | | Osteoarthros | [address] | | | | | is, | [place] | Mailcode: | | | | | unspecified | [facility] | [facility] | | | | | whether | [place], [place] | for Health | | | | | generalized | [address] | and Healing, | | | | | or | Phone: | 1st floor | | | | | localized, | [phone] | [place], [place] | | | | | pelvic | Fax: | [address] | | | | | region and | [phone] | Phone: | | | | | thigh | | [phone] | | | | | Procedures | | Fax: | | | | | PHYSICAL | | [phone] | | | | | THERAPY | | | | | | | REFERRAL | | | +--------+--------+ + + + + Encounter Details +--------+---------+ + + + | Date | Type | Department | Care Team | Description | +--------+---------+ + + + | 03/02/ | Office | [facility] | Fabiola Zhanna | Osteoarthrosis, hip | | 2012 | Visit | Therapy Services at | [address] | (Primary Dx) | | | | [facility] | [place] [address] | | | | | [address] | [phone] | | | | | Mailcode: [facility] | | | | | | [facility] | | | | | | and Healing, rust | | | | | | [place], [place] | | | | | | [address] | | | | | | [phone] | | | +--------+---------+ + + + [...] documented as of this encounter Progress Notes Zhanna Claudio - 03/02/2013 9:10 AM PDT [id number] JORGE L CISNEROS Date of : 1950 Start of care: 03/02/2013 Date of onset: 01/05/2013 Referring/Attending Practitioner: Jorge Walker MD . Primary/Referral Diagnosis/ICD-9: 1. Osteoarthrosis, hip 715.95 Insurance: Payor: [place]ICA[place] Plan: OMAP PLUS Product Type: Medicaid Service period from: 03/02/2013 to: 03/30/2013 Number visits used/authorized: 1/bernabe marmolejo auth HIP PRE-OP SUBJECTIVE: History of Presenting Problem: Jorge L Cisneros is a 62 y.o. male who is pre-op for planned R T PALMA. History of L SUSHIL. Pt states that he is unhappy with previous experience at rehab [facility]; would like to make sure he has PT after this hip surgery. Pt lives in [place]. Functional limitations Unable to walk without bilat SPC or 4WW support Unable to sit unless chair is very reclined Prior/concurrent treatment: physical therapy. Med Hx: Past Medical History Diagnosis Date Diabetes mellitus type II 2008 Diverticula, colon 2002 Ankylosing spondylitis Spinal fusion [...] reflux disease) Seizure disorder Unspecified hemorrhagic conditions Surgical Hx: Past Surgical History Procedure Laterality Date Colectomy 2002 partial, for diverticulitis Rotator cuff repair 1997 Meds: Current Outpatient Prescriptions Medication Cholecalciferol, Vitamin D3, 5,000 unit Oral capsule clotrimazole 1 % Topical Cream enoxaparin 40 mg/0.4 mL Subcutaneous Syringe glipiZIDE 5 mg Oral tablet levothyroxine 50 mcg Oral tablet lisinopril 10 mg Oral tablet MEDICAL MARIJ[employer]NA metoprolol tartrate 25 mg Oral tablet morphine 15 mg Oral tablet morphine ER 60 mg Oral tablet extended release warfarin 1 mg Oral tablet warfarin 5 mg Oral tablet No current facility-administered medications for this visit. Equipment at home: Walker and Cane. Jorge L Cisneros 's Goals: Learn precautions, learn post-op exercises OBJECTIVE: Posture/alignment/observation: Marked antalgic gait with 4WW support, very stiff spine Unable to tolerate sitting or laying down for objective examination TREATMENT TODAY: PT: Brief evaluation. Education of post-op objectives and phases of rehab Instruction of post-op precautions: No hip flexion past 90 degrees, no hip internal rotatio n, no hip adduction Reviewed the following post-op ex's: Glut squeezes Quad sets Ankle pumps Heel slides Supine hip abduction ASSESSMENT: Jorge L Cisneros is pre-op for SUSHIL. Pt very familiar with post-op rehab precautions due to his tory of previous SUSHIL on opposite leg. Marked limitation in mobility and limited position to lerance, so unable to get objective measurements on hips today. Currently patient is limite d with all functional activities d/t pain. He is receptive to pre-op education and precauti ons. He is ready for surgery. Rehab Potential: Good . GOALS, discussed with patient, due in 4 weeks: Short-term goals: Patient can state he post-op precautions. Patient can properly demonstrate gait pattern with 4WW. Patient and caregiver demonstrate understanding of sofia post-op exercises. PLAN: Read op-report Review precautions Frequency/Duration: 1x/week x12 weeks. Pt lives in [place] and has a PT there. Treatment began: 1245 Treatment ended: 1315 This note is to serve as the discharge summary if Jorge L Cisneros fails to attend further Phys ical Therapy appointments or contact the therapist regarding any change in their status. ZHANNA CLAUDIO [facility] [address] Mailcode: [address] [address] Payment Authorization Request and Status Report: [facility] Outpatient Therapy Center Contact Contact Billing Provider Number: [id number] Therapist Provider Number: [id number] Referring Prescribing Practitioner: Jorge Walker MD Primary Diagnosis/ICD-9: 1. Osteoarthrosis, hip Prescribing Practitioner Provider Number: [facility] Physician [id number]. Outside [facility] Physician: _ Proposed PA Start Date: Date PA is approved. Procedure Codes: Brief Evaluation 46996 Modalities Codes: None Minutes per session: 45 Sessions per week: 1 Total number of sessions requested: 12 Total number of units: 36 Is Copy of Prescribing Practitioner's order included with the diagnosis code attached: Yes Is therapy of a maintenance nature: No Prescribing Practitioner Signature: documented in this encounte r Plan of Treatment Not on filedocumented as of this encounter Procedures + +--------+ + + + | Procedure Name | Priori | Date/Time | Associated Diagnosis | Comments | | | ty | | | | + +--------+ + + + | PHYSICAL THERAPY | Routin | 03/02/2013 | Osteoarthrosis, | | | MARIZOL CERVANTES | e | 1:11 PM | hip | | | | | PDT | | | + +--------+ + + + documented in this encounter Visit Diagnoses + + | Diagnosis | + + | Osteoarthrosis, hip - Primary Localized osteoarthrosis not specified whether primary | | or secondary, pelvic region and thigh | + + documented in this encounter"
--- OUTSIDE RECORDS SUMMARY | ~2019-01-28 | XMS | Encounter Summary ---
Demographics + + + | Address | [address] | | | [place] [address] | + + + | Home Phone | | + + + | Preferred Language | Unknown | + + + | Marital Status | Single | + + + | Alevism Affiliation | BAP | + + + | Race | or | + + + | Ethnic Group | Not or | + + + Author + + + | Author | [facility] | + + + | Organization | [facility] | + + + | Address | [...] Team Providers + +------+ + | Care Vp Data Name | Role | Phone | + +------+ + | Scooby Mcclure MD | PCP | | + +------+ + Encounter Details +--------+ + + + + | Date | Type | Department | Care Team | Description | +--------+ + + + + | 02/24/ | Document-Sc | Health Information | Unknown . | | | 2018 | anned | Services [address] | | | | | | [address] | | | | | | [facility] Mailcode: | | | | | | [id number] [place] | | | | | | [facility] | | | | | | [place], [place] | | | | | | [address] | | | | | | [phone] | | | +--------+ + + + [...]
--- OUTSIDE RECORDS SUMMARY | ~2019-01-28 | XMS | Encounter Summary ---
Demographics + + + | Address | [address] | | | [place] [address] | + + + | Home Phone [...] Author + + + | Author | [facility] | + + + | Organization | [facility] | + + + | Address [...] Team Providers + +------+ + | Care Taxicab Coordinator Name | Role | Phone | + +------+ + | Gracie Mariano MD | PCP | Unavailable | + +------+ + Encounter Details +--------+ + + + + | Date | Type | Department | Care Team | Description | +--------+ + + + + | 11/21/ | Abstract | Digestive Health | Adriano Chavez, | | | 2013 | | Center at [facility] [address] | | | | | | [address] | | | | | | Mailcode: Center | | | | | | [facility] and | | | | | | [facility] [address] | | | | | | [place], [place] | | | | | | [address] | | | | | | [phone] | | | +--------+ + + + [...]
--- OUTSIDE RECORDS SUMMARY | ~2019-01-28 | XMS | Encounter Summary ---
Demographics + + + | Address | [address] | | | [place] [address] | + + + | Home Phone [...] Author + + + | Author | [facility] | + + + | Organization | [facility] | + + + | Address [...] Team Providers + +------+ + | Care Allergy Physician Name | Role | Phone | [...] | | 2012 | Visit | [facility] [address] | [place] | pre-operative | | | | [facility] | | examination (Primary | | | | Mailcode: [id number] | | Dx) | | | | [facility] | | | | | | [place], [place] | | | | | | [address] | | | | | | [phone] | | | +--------+---------+ + + + [...] surgeries scheduled to take place on the [place] at the [place] campus: Surgeries scheduled in the [facility] ([address] [place] [address]): registration is located on the 4th floor of [facility] (Day Surgery). Surgeries scheduled in the [facility]: registration is located on the 9th floor. Surgeries scheduled in [facility]: registration is located on the 6th floor. Surgeries scheduled in the [facility]: registration is located i n the [facility] on the first floor. For surgeries scheduled to take place at the [facility]: registration is l [...] you use specialized medical equipment at h [facility], please check with your provider before bringing [...] be ancef - DVT risk: High Per [facility] notes: Because this patient meets criteria for [...] *PT DOES NOT WANT TO RETURN TO [place]* - A PARQ session was held, additional [...] Social History Narrative No narrative on file urDonita wray - 11:15 AM PDTPATIENT NAME: Jorge L Cisneros : 1950 Pt's Phone numbers: [phone] (home) Date of Surgery: 03/14/2013 Thank you [...] [place] While a brief stay at a half-way facility may not be likely, we still recommend that you or someone you trust tour several half-way facilities in the area you would like to be prior or your admission, so that if a skilled facility is the discharge recommendatio n post operatively, the transition can progress in a more smooth and timely manner. If a half-way facility stay is recommended at discharge, please tell us where you wo uld like to stay: I would like to stay in a facility close to [facility] At discharge, please be aware that discharge time from [facility] will be approximately around 11 :00am. Once you have been discharged please share with us your plan for transportation: Medicaid transport It is important for you to be aware that if you plan to bill Medicare for your transportati on, it is required that you be transported by stretcher, in order to ensure safe transportat ion. Please note that the [facility] Crematory Attendant will fill out and submit a medical [...] with him who can help him and rn homecare will check adolfo y Are there any [...]
--- OUTSIDE RECORDS SUMMARY | ~2019-01-28 | XMS | Encounter Summary ---
Demographics + + + | Address | [address] | | | [place] [address] | + + + | Home Phone | | + + + | Preferred Language | Unknown | + + + | Marital Status | Single | + + + | Religion Affiliation | BAP | + + + [...] | + + +---------+ + | Nallely Cisnreos | ECON | Unknown | | + + +---------+ + | Jean Funk | ECON | Unknown | Unavailable | + + +---------+ + Care Team Providers + +------+ + | Care Senior Cytogenetics Laboratory Director Name | Role | Phone | + +------+ + | Gracie Mariano MD | PCP | Unavailable | + +------+ + Encounter Details +--------+ + + + + | Date | Type | Department | Care Team | Description | +--------+ + + + + | 08/11/ | Hospital | Diagnostic | | | | 2011 | Encounter | Radiology at [facility] | | | | | | [address] | | | | | | [address] | | | | | | Mailcode: [id number] | | | | | | [place] | | | | | | [place], [place] | | | | | | [address] | | | | | | [phone] | | | +--------+ + + + [...] X-RAY HIPS BILAT 2 | Routin | 08/11/2012 | Osteoarthrosis, | Results for this | | VIEWS WITH AP PELVIS | e | 3:11 PM | hip Hip pain | procedure are in the | | | | PST | | results section. | + +--------+ + + + documented in this encounter Results X-RAY HIPS BILAT 2 VIEWS WITH AP PELVIS (08/11/2012 3:11 PM PST) + + + + + + | Component | Value | Ref Range | Performed | Pathologist | | | | | At | Signature | + + + + + + | HIPS BILAT | STUDY: HIPS BILAT 2 | | | | | 2 VIEWS W | VIEWS W AP PELV 08/11/12 | | | | | AP PELV | 15:11:00 HISTORY: Pain. | | | | | | COMPARISON: 05/09/12 | | | | | | FINDINGS: Ankylosis of | | | | | | the right hip joint is | | | | | | unchanged. The | | | | | | noncemented lefttotal | | | | | | hip arthroplasty shows | | | | | | normal alignment and no | | | | | | hardware failureor | | | | | | periprosthetic | | | | | | lucency. Bilateral | | | | | | sacroiliac and probable | | | | | | pubicsymphysis ankyloses | | | | | | are | | | | | | redemonstrated. No | | | | | | fracture or focal | | | | | | osseousdestruction is | | | | | | identified. IMPRESSION: | | | | | | Stable left total hip | | | | | | arthroplasty. Unchanged | | | | | | right hip, sacroiliac, | | | | | | and pubic symphysis | | | | | | ankylosescompatible with | | | | | | ankylosing spondylitis. | | | | | | Attending Radiologists: | | | | | | Jakob Snider M.D.Author: | | | | | | Jakob Snider M.D. I have | | | | | | personally viewed this | | | | | | procedure/exam, reviewed | | | | | | this report,and made | | | | | | changes to it where | | | | | | appropriate. | | | | | | Final/Electronically | | | | | | ana laura / Jakob [place] | | | | | | 08/11/2012 16:07 PM | | | | + + + + + + + + | Specimen | + + | | + + + +---------+ + + | Performing | Address | City/State/Zipcode | Phone Number | | Organization | | | | + +---------+ + + | [facility] DEPARTMENT OF | | | | | RADIOLOGY | | | | + +---------+ + + documented in this encounter Visit Diagnoses + + | Diagnosis | + + | Osteoarthrosis, hip Localized osteoarthrosis not specified whether primary or | | secondary, pelvic region and thigh | + + | Hip pain Pain in joint, pelvic region and thigh | + + documented in this encounter"
--- OUTSIDE RECORDS SUMMARY | ~2019-01-28 | XMS | Encounter Summary ---
Demographics + + + | Address | [address] | | | [place] [address] | + + + | Home Phone [...] Author + + + | Author | [facility] | + + + | Organization | [facility] | + + + | Address [...] Team Providers + +------+ + | Care Retail Buyer Name | Role | Phone | + +------+ + | Gracie Mariano MD | PCP | Unavailable | + +------+ + Encounter Details +--------+ + + + + | Date | Type | Department | Care Team | Description | +--------+ + + + + | 01/12/ | Hospital | Registration [facility] | | | | 2018 | Encounter | [address] | | | | | | [place] | | | | | | [place], [place] | | | | | | [address] | | | +--------+ + + + [...]
--- OUTSIDE RECORDS SUMMARY | ~2019-01-28 | XMS | Encounter Summary ---
Demographics + + + | Address | [address] | | | [place] [address] | + + + | Home Phone | | + + + | Preferred Language | Unknown | + + + | Marital Status | Single | + + + | Voodoo Affiliation | BAP | + + + | Race | or | + + + | Ethnic Group | Not or | + + + Author + + + | Author | [facility] | + + + | Organization | [facility] | + + + | Address [...] Providers + +------+ + | Care Design Chief Name | Role | Phone | + [...] [address] | | | | | (HCC) | [address] | [address] | | | | | Procedures | [place], Mailcode: | | | | | CONSULT TO | [place] [address] | OP09 | | | | | RHEUMATOLOGY | Phone: | Physicians | | | | | | [phone] | [facility] | | | | | | Fax: | Floor | | | | | | [phone] | [place], [place] | | | | | | | [address] | | | | | | | Phone: | | | | | | | [phone] | | | | | | | Fax: | | | | | | | [phone] | +--------+--------+ + + + + Encounter Details +--------+ + + + + | Date | Type | Department | Care Team | Description | +--------+ + + + + | 02/16/ | Linux Engineer | Digestive Health | Harinder Felton, | 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
--- OUTSIDE RECORDS SUMMARY | ~2019-01-28 | XMS | Encounter Summary ---
Demographics + + + | Address | [address] | | | [place] [address] | + + + | Home Phone [...] Author + + + | Author | [facility] | + + + | Organization | [facility] | + + + | [...] Team Providers + +------+ + | Care Technical Services Specialist Name | Role | Phone | [...] transfer from other | | | | [facility] | [facility] | [facility] | | | | Mailcode: [id number] | [place], [place] | care facility | | | | Physician's [place] | [address] | | | | | [place], [place] | [phone] | | | | | [address] | | | | | | [phone] | | | +--------+ + + + [...]
--- OUTSIDE RECORDS SUMMARY | ~2019-01-28 | XMS | Encounter Summary ---
Demographics + + + | Address | [address] | | | [place] [address] | + + + | Home Phone [...] Author + + + | Author | [facility] | + + + | Organization | [facility] | + + + | [...] Team Providers + +------+ + | Care Heavy Equipment Mechanic Name | Role | Phone | + +------+ + | Gracie Mariano MD | PCP | Unavailable | + +------+ + Encounter Details +--------+ + + + + | Date | Type | Department | Care Team | Description | +--------+ + + + + | 06/22/ | Telephone | Digestive Health | Harinder Felton, | | | 2012 | | [place] [address] [address] | [address] | | | | | [address] [address] | [place] [address] | | | | | Mailcode: [place] | [phone] | | | | | for Health and | | | | | | [place] [place] [address] | | | | | | [place], [place] | | | | | | [address] | | | | | | [phone] | | | +--------+ + + + [...]
--- OUTSIDE RECORDS SUMMARY | ~2019-01-28 | XMS | Encounter Summary ---
Demographics + + + | Address | [address] | | | [place] [address] | + + + | Home Phone [...] Team Providers + +------+ + | Care Aesthetics Instructor Name | Role | Phone | + +------+ + | Gracie Mariano MD | PCP | Unavailable | + +------+ + Reason for Visit + + + | Reason | Comments | + + + | Treatment Planning | | + + + Encounter Details +--------+ + + + + | Date | Type | Department | Care Team | Description | +--------+ + + + + | 05/31/ | Telephone | Rheumatology at | Carole Hearn, | Treatment Planning | | 2012 | | [place] | [address] | | | | | [address] | [address] | | | | | [facility] | [place] [address] | | | | | Mailcode: [id number] | [phone] | | | | | [address] [place] | | | | | | [place], [place] | | | | | | [address] | | | | | | [phone] | | | +--------+ + + + [...]
--- OUTSIDE RECORDS SUMMARY | ~2019-01-28 | XMS | Encounter Summary ---
Demographics + + + | Address | [address] | | | [place] [address] | + + + | Home Phone [...] Team Providers + +------+ + | Care Telephone Clerk Telegraph Office Name | Role | Phone | + [...] | | | | | displaced | 1913 | | | | | | fracture of | [address] | | | | | | second | [address] | | | | | | cervical | [address] | | | | | | vertebra, | [place], [place] | | | | | | unspecified | [address] | | | | | | fracture | Phone: | | | | | | morphology, | [phone] | | | | | | initial | Fax: | | | | | | encounter | [phone] | | | | | | ([facility]) | | | | | | | [...] + + | 02/15/ | Hospital | [facility] [address] | Ino Guardado, | | | 2018 - | Encounter | [address] | [address] | | | | | [id number] [facility] | [address] | | | 02/22/ | | HOSP[facility], | [place], [place] | | | 2018 | | [place] [address] | [address] | | | | | [phone] | [phone] | | | | | | | | | | | | Deandre Austin MD | | | | | | [address] | | | | | | [address] | | | | | | [place], [place] | | | | | | [address] | | | | | | [phone] | | | | | | | [...] be expected to seek care from [facility]. If you do not have a primary care provider, we encourage you to [facility] one immediately. 3. We will taper your opioid pain medication starting at the first clinic visit. 4. Not all patients will receive a refill of opioid medications. We will only prescribe re fills of opioids if we feel the medication is being use appropriately and is required for yo ur pain. We are only able to renew opioid prescriptions in a xnfy-kb-dcxv clinic visit. Our clinic sees patients on [...] week. Specialty: Family Medicine Why: follow [facility] Contact information [facility] [address] [place] [address] Trauma Center at [facility]. Specialty: Trauma Center Why: As needed Contact information [address] [place] [address] Mailcode: L223a [facility] [address] [facility] [address] Additional information: The [facility] is the building just past [facility]. Turn ri ght immediately past the Pavilion. The entrance to garage B will be on your right just beyon d the main doors to the Pavilion. An elevator in the parking garage will take patients direc tly to the floor of the clinic. The Trauma Clinic is located on the 2nd floor, [address]. Pl ease check in at the front desk assistant. Maps and directions can be found at [email or web address] Vitals on discharge: Ht 1.778 [...] I saw and examined Jose Rafael Cisneros ([id number]) with the residents on 02/22/2018 and agree with the assessment and plan as outlined in this discharge summary. Familia Early MD Gymnastics Coach Or Instructor Trauma, Critical Care & Acute Care Surgery [...] doctor if you can take an o ksr-eey-glieebn medicine. Follow your doctor's directions for returning [...] "Broken Neck: Care Instructions", log into your [employer] account at [email or web address] :[email or web address]. You can enter U000 in the "Rest Devices" search box. Not on [employer]? Review the [employer] section of your After Visit Summary for directions on ho w to sign up. Current as of: November 10, 2016 Content Version: [id number] [employer]. Care instructions adapted under license by [facility] [employer] [facility] [employer]. If you have questions about a medical condition or this instr uction, always ask your healthcare professional. [employer] disclaims any lakhwinder anty or liability for your use of this information. AttachmentsThe following attachments cannot be sent through Care Everywhere.Cervical Spinal Fusion: Post-op (Maldivian)DVT (Deep Vein Thrombosis) (Maldivian)documented in this encounter Medications at Time of [...] off at this time FABIENNE PAIGE PA-C [facility] [address] [place] [address] Tino Swanson MD - 02/21/2018 11:51 AM [...] pain control, awaiting PT/OT. Tino Cortez MD [facility] [address] [place] [address] Associated attestation - Familia Early MD - 02/22/2018 10:10 AM PDTAttending: I saw and examined Jose Rafael Cisneros ([id number]) with the residents on 02/21/2018 and agree with the assessment and plan as outlined in this note and participated in the planning of care. Familia Early MD Gymnastics Coach Or Instructor Division of Trauma and Critical Care Erica [...] mm 0.00 General: 67 y/o male in [facility] Incision: C/D/I, no erythema-conrado present Neuro: [...] -Will arrange outpatient FU ERICA CALDERON PA-C [facility] [address] [place] [address] MEDICATIONS Current Facility-Administered Medications Medication acetaminophen (TYLENOL) [...] LMWH when INR is >2 Please page [phone] with any questions or concerns. Hugo Daniel M.D. Neurological Surgery Resident PGY-1 Pager: [phone] signed by Hugo Daniel MD at 02/20/2018 2:30 PM Tino Swanson MD - 02/20/2018 2:25 PM PDTFormatting of this note might be different from the orig [place]. Trauma Acute Care - Progress Note Name: [...] neuro checks, pain control. Tino Cortez MD [facility] [facility] [place] [address] Associated attestation - Munira Best MD,MPH - 02/20/2018 5:15 PM PDTI saw and evaluat ed the patient. I agree with the findings and the plan of care as documented in the residen t s note. Adjusting pain control up as the patient has acute on chronic pain. Further, cl eared for full dose anticoagulation initiation today (VTE) Munira Best MD, MPH player services representative Trauma, Critical Care & Acute Care Surgery [facility] [employer] Jakob Portillo [...] dose beginning the morning of 02/20. - [facility] made aware by page APLA/History of DVT- [...] my supervising physicians. Jakob Portillo, PGY-1 Surgery 20394 Division of Trauma Department of Surgery Mail Code: L611 [address] [place] [address] Associated attestation - Munira Best MD,MPH - 02/19/2018 8:48 PM PDTTSICU ATTENDING M EDICAL DECISION MAKING I examined this patient with the ICU team. I have personally reviewed all pertinent labar otory findings, radiographs, and physiologic parameters. I personally performed pertinent p arts of the physical examination and personally formulated the plan with the TSICU team. Munira Best MD, MPH player services representative Trauma, Surgical Critical Care, & Acute Care Surgery [facility] [employer] Munira Fang MD - 02/19/2018 8:01 AM PDT Neurosurgery Progress Note Date: 02/19/2018 Admitting Physician: Deandre Austin MD HPI: Jose Rafael Cisneros is a 67 y.o. male admitted to [facility] for trauma Interval Update: OR yest [...] 41 PO2 78 81 HCO3 26.0 25.4 L2KEORFZ 95.3 96.3 CSF Results No results for [...] Please contact the neurosurgery resident on-call pager [phone] with questions. Munira Moore MD Neurological Surgery [...] my supervising physicians. Jakob Portillo, PGY-1 Surgery 93891 Division of Trauma Department of Surgery Mail Code: L611 [address] [place] [address] Associated attestation - Aracelis Whittington MD - 02/21/2018 10:50 PM PDTICU Attending: I saw and examined Jose Rafael Cisneros ([id number]) with the residents on 02/18/18 and agree with t he assessment and plan as outlined in this note and participated in the planning of care. 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 male admitted to [facility] for trauma Interval Update: NPO for [...] 41 PO2 78 81 HCO3 26.0 25.4 F6ICQPXC 95.3 96.3 CSF Results No results for [...] Please contact the neurosurgery resident on-call pager [phone] with questions. Munira Moore MD Neurological Surgery PGY2 azuMunira Mayo MD - 02/17/2018 9:54 AM PDT . Neurosurgery Progress Note Date: 02/17/2018 Admitting Physician: Deandre Austin MD HPI: Jose Rafael Cisneros is a 67 y.o. male admitted to [facility] for trauma Interval Update: NPO for [...] for input(s): FIO2, PH, PCO2, PO2, HCO3, WSICN0ITX, W1JITWPZ, X3ERBKWYG in the l ast 720 hours. CSF [...] Please contact the neurosurgery resident on-call pager [phone] with questions. Munira Moore MD Neurological Surgery [...] Intake/Output Summary (Last 24 hours) at 02/17/18 0714 Last data filed at 02/17/18 0705 Gross [...] Department of Surgery Mail Code: L611 [address] [place] [address] Associated attestation - Aracelis Whittington MD - 02/19/2018 10:54 PM PDTICU Attending: I saw and examined Jose Rafael Cisneros ([id number]) with Vandana Lora PA-C on 02/17/18 and [...] after spine surgery. Aracelis Whittington MD FACS ethylbenzene converter helper Division of Trauma, Critical Care & Acute Care Surgery Jakob Portillo MD - 02/16/2018 3:38 PM PDTPer neurosurgery, case canceled today due to OR availability. Diabetic diet started. NPO at midnight for OR 02/17. Jakob Portillo, PGY-1 Surgery [address] Jamie Hutton MD - 0 02/16/2018 11:34 [...] on xarelto Jamie Parra MD Neurosurgery PGY1 08411 Jakob mullen MD - 0 02/16/2018 9:25 [...] to have plan for after [place] from [facility]. proph sooner? Infectious Diseases: No acute concerns [...] Department of Surgery Mail Code: L611 [address] [place] [address] Associated attestation - Aracelis Whittington MD - 02/17/2018 4:00 PM PDTAttending: I saw and examined Jose Rafael Cisneros ([id number]) with the residents on 02/16/18 and agree with t he assessment and plan as outlined in this note and participated in the planning of care. Aracelis Whittington MD FACS ethylbenzene converter helper Division of Trauma, Critical Care & Acute Care Surgery Munira Fang MD - 02/16/2018 5:00 AM PDT Neurosurgery Progress Note Date: 02/16/2018 Author: MUNIRA JACKSON MD Admitting Physician: Deandre Austin MD HPI: Jose Rafael Cisneros is a 67 y.o. male admitted to [facility] for trauma Interval Update: NPO for [...] for input(s): FIO2, PH, PCO2, PO2, HCO3, MDUDE3TLY, V7VDJGNL, F3QCCVTGB in the l ast 720 hours. CSF [...] Please contact the neurosurgery resident on-call pager [phone] with questions. Munira Moore MD Neurological Surgery [...] [facility] | [address] | [place], [place] | | | [facility] OF [facility] | [address] | [address] | | | TESTS | | | [...] + + + | [facility] | [address] | [place], [place] | | | JOI POINT OF CARE | [address] | [address] | | | TESTS | | | [...] [facility] | [address] | [place] [address] | | | NAY KANG | [address]ENNAR[address] [...] ELLIE | [address] | [place], [place] | | | JOI POINT OF CARE | [address] | [address] | | | TESTS | | | [...] (H) | 70 - 99 mg/dL | [facility] - | | | GLUCOSE, | [...] ARGUETA | [address] | [place], [place] | | | BABAR TAMEZ OF CARE | [address] | [address] | | | TESTS | | | [...] [facility]QU[facility] | [address] | [place], [place] | | | ABBAR TAMEZ OF [facility] | [address] | [address] | | | TESTS | | | [...] [facility] | [address] | [place], [place] | | | JOI POINT OF CARE | [address] | [address] | | | TESTS | | | [...] [facility] | [address] | [place], [place] | | | JOI POINT OF CARE | [address] | [address] | | | TESTS | | | [...] | + + + + + | [facility] | [address] [facility] [facility] [address] | [place] [address] | | | NAY KANG | GENNARO [...] ELLIE | [address] | [place], [place] | | | BABAR TAMEZ OF [facility] | [facility] | [address] | | | TESTS | | | [...] (H) | 70 - 99 mg/dL | [facility] - | | | GLUCOSE, | [...] ARGUETA | [address] | [place], [place] | | | JOI POINT OF CARE | [address] | [address] | | | TESTS | | | [...] ELLIE | [address] | [place], [place] | | | BAB[facility] OF [place] | [address] | [address] | | | TESTS | | | [...] | + + + + + | [facility] | [address] | [place] [address] | | | SERVICES, [facility] | [address] | | | + + + + + US SOFT TISSUE HEAD & NECK (02/20/2018 1:09 PM PDT) + + | Specimen | + + | | + + + + + | Narrative | Performed At | + + + | EXAM: US THYROID. HISTORY: Thyroid ultrasound for mass seen on | [facility] | | CT scan. COMPARISON: CTA neck [...] MARQU[facility] | [address] | [place], [place] | | | BAB[facility] T[facility] OF [facility] | [facility] | [address] | | | TESTS | | | [...] ARGUETA | [address] | [place], [place] | | | JOI POINT OF CARE | [address] | [address] | | | TESTS | | | [...] ELLIE | [address] | [place], [place] | | | [facility] OF [facility] | [address] | [address] | | | TESTS | | | [...] (H) | 70 - 99 mg/dL | [facility] - | | | GLUCOSE, | [...] [facility] | [address] | [place], [place] | | | [facility] OF [facility] | [facility] | [address] | | | TESTS | | | [...] | + + + + + | [facility] | [address] [facility] [facility] [address] | [place] [address] | | | NAY KANG | GENNARO [...] MARQUAM | [address] | [place], [place] | | | JOI POINT OF CARE | [address] | [address] | | | TESTS | | | [...] - [facility] | [address] | [place], [place] | | | JOI POINT OF CARE | [address] | [address] | | | TESTS | | | [...] + + + | [facility] | [address] | [place], [place] | | | [facility]Z OF [facility] | [address] | [address] | | | TESTS | | | [...] Note | + + | Service Account, Paperless Post In Interface - 02/18/2018 3:50 PM PDT [...] Attending | | Surgeon: Pablito Barroso MD Hot Box Checker(s): All López MD, | | PhD Preoperative [...] after a C7 fracture. He presented to [facility] | | via Trauma having fallen [...] These were then final tightened using the ice cutter instrumentation. | | The area was thoroughly [...] 02/18/2018 12:36:03DT: 02/18/2018 13:17:58Job #: | | [id number] | |KG/MODL | | | | | | /[id number] | + + CAPILLARY BLOOD GLUCOSE (NO [...] AR[facility] | [address] | [place], [place] | | | BABAR T[facility] OF [place] | [address] | [address] | | | TESTS | | | [...] ARGUETA | [address] | [place], [place] | | | JOI POINT OF CARE | [address] | [address] | | | TESTS | | | [...] MARQUAM | [address] | [place], [place] | | | BABAR TAMEZ OF CARE | [address] | [address] | | | TESTS | | | [...] ARGUETA | [address] | [place], [place] | | | BABAR TAMEZ OF CARE | [address] | [address] | | | TESTS | | | [...] MARQUAM | [address] | [place], [place] | | | BABAR TAMEZ OF CARE | [address] | [address] | | | TESTS | | | [...] ranges for full anticoagulation: INR for | [facility] | | Venous Thromboembolism (2.0 - 3.0) INR INR | LABORATORY | | for most patients with mech. valves (2.5 - 3.5) INR | SERVICES, CORE | + + + + + + + + | Performing | Address | City/State/Zipcode | Phone Number | | Organization | | | | + + + + + | [facility] | [address] | [place] [address] | | | SERVICES, NAY | GENNARO [...] [facility] | [address] | [place] [address] | | | SERVICES, CORE | PARK [...] | + + + + + | [facility] | [address] | [place] [address] | | | NAY KANG | PARK [...] | | | LABORATORY | | | SAO TOMEAN | | | SERVICES, | | | [...] AUTUMN GARCÍA | [address] | [place] [address] | | | SERVICES, CORE | [address] | | | + + + + + INTRAOPERATIVE NEURO MONITORING (02/18/2018) + + + | Narrative | Performed At | + + + | Patient Name: Jose Rafael Cisneros Date of : 1950 | | | Date of Test: 02/18/2018 Place | | | of Service: IP Intra Op [id number] INTRAOPERATIVE | | | NEURO MONITORING IOM: [...] min(s), with modifier GY | | | 25755 - Short Latency EP's Upper AND Lower extremities 23456 - | | | Central Motor EP's Upper AND Lower extremities 46174 - EEG in Sleep | | | [...] [facility] | [address] | [place], [place] | | | BAB[facility] T[facility] OF [place] | [facility] | [address] | | | TESTS | | | [...] (H) | 70 - 99 mg/dL | [facility] - | | | GLUCOSE, | [...] ARGUETA | [address] | [place], [place] | | | JOI POINT OF CARE | [address] | [address] | | | TESTS | | | [...] + + | Performing | Address | City/State/[facility] | Phone Number | | Organization | | | | + + + + + | [facility] | [address] | [place], [place] | | | [facility] OF [facility] | [address] | [address] | | | TESTS | | | [...] [place] | [address] | [place], [place] | | | BABAR TAMEZ OF [place] | [facility] | [address] | | | TESTS | | | [...] (H) | 70 - 99 mg/dL | [facility] - | | | GLUCOSE, | [...] MARCIALQUAM | [address] | [place], [place] | | | JOI POINT OF CARE | [address] | [address] | | | TESTS | | | [...] [facility] | [address] | [place] [address] | | | SERVICES, CORE | PARK [...] | + + + + + | [facility] | [address] | [place] [address] | | | SERVICES, NAY | [address]ENNAR[address] [...] [facility] | [address] | [place] [address] | | | SERVICES, [facility] | [address] | | | + [...] | | | LABORATORY | | | SAO TOMEAN | | | SERVICES, | | | [...] the MDRD equation recommended by the | [facility] | | National Kidney Disease Education Program. [...] | + + + + + | [facility] | [address] | [place] [address] | | | NAY KANG | GENNARO [...] (H) | 70 - 99 mg/dL | [facility] - | | | GLUCOSE, | [...] ARGUETA | [address] | [place], [place] | | | JOI POINT OF CARE | [address] | [address] | | | TESTS | | | [...] ELLIE | [address] | [place], [place] | | | BABAR TAMEZ OF [place] | [address] | [address] | | | TESTS | | | [...] DEPT OF | [address] | [place], [place] | | | CARDIOLOGY | [address] | [address] | | + + + + + [...] - [facility] | [address] | [place], [place] | | | JOI POINT OF CARE | [facility] | [address] | | | TESTS | | | [...] + + + | [facility] | [address] | [place], [place] | | | BAB[facility] TAMEZ OF [facility] | [address] | [address] | | | TESTS | | | [...] [facility] | [address] | [place] [address] | | | NAY KANG | GENNARO [...] | + + + + + | [facility] | [address] | [place] [address] | | | SERVICES, CORE | [address] | | | + + + + + MAGNESIUM, PLASMA (02/16/2018 12:52 AM PDT) + +-------+ + + + | Component | Value | Ref Range | Performed | Pathologist | | | | | At | Signature | + +-------+ + + + | MAGNESIUM,P | 2.5 | 1.6 - 2.6 mg/dL | [facility] | | | LASMA | | | [...] [facility] | [address] | [place] [address] | | | SERVICES, CORE | [address] [...] | | | LABORATORY | | | SAO TOMEAN | | | SERVICES, | | | [...] | + + + + + | [facility] | [address] | [place] [address] | | | SERVICES, CORE | [address] [...] | + + + + + | [facility] | [address] | [place] [address] | | | SERVICES, CORE | [address] [...] | + + + + + | [facility] | [address] | [place] [address] | | | SERVICES, CORE | [address] [...] [facility] | [address] | [place], [place] | | | BABAR TAMEZ OF CARE | [address] | [address] | | | TESTS | | | [...] [facility] | [address] | [place] [address] | | | SERVICES, CORE | [address] [...] [facility] | [address] | [place] [address] | | | SERVICES, | [address] [...] [facility] | [address] | [place] [address] | | | SERVICES, | [address] [...] [facility] | | | | | | ABBAR TAMEZ | | | | | | [...] [facility] | [address] | [place], [place] | | | JOI POINT OF CARE | [address] | [address] | | | TESTS | | | [...] MD 02/15/2018 4:56 PM | |Preliminary: Soo Yots MD 02/15/2018 4:48 PM | |Dictation initiated: [...] Note | + + | Service Account, Rendeevoo Res In Interface - 02/15/2018 4:57 PM [...] [facility] | [address] | [place], [place] | | | BABAR TAMEZ OF [facility] | [address] | [address] | | | TESTS | | | [...] [facility] | [address] | [place], [place] | | | BABAR TAMEZ OF CARE | [address] | [address] | | | TESTS | | | [...] [facility] | [address] | [place] [address] | | | PEARL, NAY | [address] [...] | + + + + + | [facility] | [address] | [place] [address] | | | SERVICES, CORE | [address] [...] | + + + + + | [facility] | [address] | [place] [address] | | | SERVICES, CORE | [address] [...] | + + + + + | [facility] | [address] | [place] [address] | | | SERVICES, CORE | [address] [...] | + + + + + | [facility] | [address] | [place] [address] | | | SERVICES, | [address] [...] | + + + + + | [facility] | [address] [facility] [facility] | [place] [address] | | | SERVICESNAY | [address] [...] | | | LABORATORY | | | SAO TOMEAN | | | SERVICES, | | | [...] + + | [facility] | [address] | [place] [address] | | | SERVICES, CORE | [address] [...] | + + + + + | [facility] | [address] [facility] | [place] [address] | | | SERVICES, CORE | [address] [...] | | | CITRATED | | | BABAR TAMEZ | | [...] + + + | [facility] | [address] | [place], [place] | | | BABAR TAMEZ OF [facility] | [address] | [address] | | | TESTS | | | [...] 11:44 | | | | | dose, [facility] 02/17/18 at 1045 | | AM PDT [...]
--- OUTSIDE RECORDS SUMMARY | ~2019-01-28 | XMS | Encounter Summary ---
Demographics + + + | Address | [address] | | | [place] [address] | + + + | Home Phone | | + + + | Preferred Language | Unknown | + + + | Marital Status | Single | + + + | [employer]aritan Affiliation | BAP | + + + [...] Team Providers + +------+ + | Care Information Coder Name | Role | Phone | + +------+ + | Gracie Mariano MD | PCP | Unavailable | + +------+ + Reason for Visit + + + | Reason | Comments | + + + | Pre-operative | TOTAL HIP ARTHROPLASTY on 07/12/2013 by Jorge Walker MD at [facility] | | evaluation | 6A | + + + Encounter Details +--------+---------+ + + + | Date | Type | Department | Care Team | Description | +--------+---------+ + + + | 06/29/ | Office | Preoperative | Angeline Arambula | Preop examination | | 2012 | Visit | Medicine Clinic at | R, PATENTED [employer]SEM[employer]ER [address] | (Primary Dx); | | | | MPV 4th Floor Day | [facility] | Osteoarthrosis, hip; | | | | Stay [address] | [place], [place] | Ankylosing | | | | [facility] | [address] | spondylitis ([facility]); | | | | Mailcode: [id number] | [phone] | Hypertension; | | | | [facility] | | Diabetes mellitus | | | | [address] [facility] [place] | | ([facility]); | | | | [address] | | Antiphospholipid | | | | [phone] | | antibody syndrome | | | | | | ([facility]); Difficult | | | | | | intubation | +--------+---------+ + + + Anesthesia Record + + + + + | Procedure Name | Responsible | Anesthesia Start | Anesthesia Stop Time | | | Anesthesiologist | Time | | + + + + + | TOTAL HIP | | | | | ARTHROPLASTY on | | | | | 07/12/2013 by Jorge | | | | | Royal Walker MD at [facility] | | | | | 6A (canceled) | | | | | (canceled) | | | | + + + + + + + | No events on file. | + + +------+ | Meds | +------+ + + + No medications | on file. | + + + + + | No agents on file. | + + + + | No blood administrations on file. | + + + + | No LDAs on file. | + + documented in this encounter Social [...] + + + | Blood Pressure | 130/75 | 06/29/2013 1:07 PM | | | | | PST | | + + + + + | Pulse | 65 | 06/29/2013 1:07 PM | | | | | PST | | + + + + + | Temperature | 36.8 C (98.3 F) | 06/29/2013 1:07 PM | | | | | PST | | + + + + + | Respiratory Rate | 18 | 06/29/2013 1:07 PM | | | | | PST | | + + + + + | Oxygen Saturation | 96% | 06/29/2013 1:07 PM | | | | | PST | | + + + + + | Inhaled Oxygen | - | - | | | Concentration | | | | + + + + + | Weight | 113.4 kg (250 lb) | 06/29/2013 1:07 PM | | | | | PST | | + + + + + | Height | 167.6 cm (5' 6") | 06/29/2013 1:07 PM | NECK 45.5CM | | | | PST | | + + + + + | Body Mass Index | 40.35 | 06/29/2013 1:07 PM | | | | | PST | | + + + + + documented in this encounter Patient Instructions Patient Instructions Angeline Arambula NP - 06/29/2013 1:27 PM PST PREOPERATIVE INSTRUCTIONS Special Instructions for Orthopedic Patients Having Joint Replacement Surgery Nasal swab culture to screen for staph bacteria. If the culture obtained during your vi sit with us turns positive (meaning that there is bacterial growth), you will be contacted b y us with additional instructions on how to prepare for surgery. If no growth, then no call ! [facility] wipe packet and instructions on proper skin cleaning Please be sure to follow the se romano instructions regarding proper skin preparation before surgery. Empty stomach before surgery On the day BEFORE your surgery, drink plenty of fluids and s srinivas well hydrated NOTHING to eat or drink after midnight the night before surgery, or 8 hours prior to mclain rgery. This includes water, coffee, candy, mints, gum. Medications Instructions Consult with prescribing provider re: use of: adalimumab 40 mg/0.8 mL Subcutaneous Pen Injector Kit, Inject 0.8 mL under the skin (SUBC) every fourteen days. As directed. TAKE the following medications with a sip of water on the morning of surgery:levothyroxi ne 50 mcg Oral tablet, Take 50 mcg by mouth once daily. metoprolol tartrate 25 mg Oral tablet, Take 25 mg by mouth two times daily. Do NOT take the following medications on the morning of surgery:allopurinol 100 mg Oral tablet, Take 100 mg by mouth once daily. glipiZIDE 5 mg Oral tablet, Take 5 mg by mouth two times daily. lisinopril 10 mg Oral tablet, Take 10 mg by mouth once daily. Other medications not specifically mentioned are at your discretion as to taking or not taking on the morning of surgery. Unless otherwise directed by your surgeon, do [...] or walk. Surgery Check in Locations Admitting [facility], ninth floor [facility] Surgery Check in Time: The Preoperative Medicine [...] it is after office hours, call the [facility] data entry operator at [phone] and ask them to page him or h er. Preparing For Your Surgery Video -- 7 minutes of instructions! Access the [facility] website [email or web address] --> POPULAR RESOURCES --> Patient Guide --> Preparing for your Visit or Surgery --> "Preparing for Your Surgery" video link documented in this encounter Progress Notes Angeline Arambula NP - 06/29/2013 12:54 PM PST PREOPERATIVE CONSULT NOTE Consulting Provider: ANGELINE ARAMBULA NP Referring Physician: Jorge Walker MD Primary Care Provider: Gracie Mariano MD Reason for Consult: Preoperative evaluation and risk assessment Proposed Procedure/Date: complex right total hip arthroplasty on 07/12/2013 HISTORY OF PRESENT ILLNESS: Jorge L Cisneros is a 62 y.o. male here for preoperative evaluation for above procedure. Pt has dx of Osteoarthrosis, unspecified whether generalized or localized, pelvic region an d thigh characterized by s/p left hip arthroplasty in 04/2012, which has provided much relief . Right hip is anklyosed on x-ray. Deemed to be candidate hip replacement. Evaluated by Dr. Walker - now plan for right hip SUSHIL. PMHx: ankylosing spondylitis, antiphospholipid antibody syndrome (hx CVA, RLE DVT) on couma din, type II DM, HTN. Seen by Dr. Tijerina at [facility] on 03/02/2013 for this same procedure, but had to be rescheduled d /t acute cholecystis s/p cholecystectomy on 03/13. Since that time, he has felt well. No othe r significant changes. He has no hx nor symptoms of CAD, CHF, CKD or DM (treated with insulin). Functional capaci ty is Low ROS: Pulmonary: Within Defined Limits except as noted below no cough no URI no shortness of herbert th no wheezing Pt. Has no asthma No dx of sleep apnea sleep apnea Pt. being treated for high blood pressure Age>50, Male gen flako, Neck circumference> 40 cm and BMI>35 pt. at high risk of MICHELLE Cardiovascular: About 3 mets; Able to walk several blocks with walker Denies any chest pain or pressure, sob, salgado, orthopnea, pnd, peripheral edema, palpitations or dizziness/syncope. Hx murmur - present many years. Echo about 7-8 years ago at OSH, which was normal per pt. Of note, tolerated left hip SUSHIL 04/2012 without issues. Within Defined Limits except as noted below Functional Capacity: Low no CAD hypertension we ll controlled valvular problems/murmurs Other no pacemaker GI/Hepatic: S/p cholecystectomy (02/2013). No further abd pain Within Defined Limits except as noted below no GERD : Within Defined Limits except as noted below Endo: Within Defined Limits except as noted below Diabetes: type 2, oral hypoglymics Neurological: +chronic pain Hx CVA x2 -- deficits: memory loss Within Defined limits except as noted below Sign/Sx Hx o f CVA no psychiatric problem pain (pain from neck - knees -- joint pain. takes 30mg morphine daily. no long acting MS contin, cutting down on medical marijuana) Current Pain Level: Current pain level: 6 MS: S/p left hip SUSHIL (04/2012) -- neck fused Within Defined Limits except as noted below arthritis Heme/Onc: Hx of DVT; anti-phospholipid antibodies On coumadin Within Defined Limits except as noted below Pt. has: no active bleeding Bleedin g diathesis / thrombotic bleeding DVT other heme (anti-phospolipid antibodies), Skin: Within Defined Limits except as noted below Current Medication List Name Sig ACETAMINOPHEN 650 MG TABLET Take 1 Tab by mouth every six hours. ADALIMUMAB 40 MG/0.8 ML SUBQ PEN KIT Inject 0.8 mL under the skin (SUBC) every fourteen day s. As directed. ALLOPURINOL 100 MG TABLET Take 100 mg by mouth once daily. CHOLECALCIFEROL (VITAMIN D3) 5,000 UNIT CAPSULE Take 5,000 Units by mouth once daily. CLOTRIMAZOLE 1 % TOPICAL CREAM Apply to affected area two times daily. Apply to affected a grisel for 7 consecutive days. GLIPIZIDE 5 MG TABLET Take 5 mg by mouth two times daily. LEVOTHYROXINE 50 MCG TABLET Take 50 mcg by mouth once daily. LISINOPRIL 10 MG TABLET Take 10 mg by mouth once daily. MEDICAL MARIJUANA once daily. 3 grams per day METOPROLOL TARTRATE 25 MG TABLET Take 25 mg by mouth two times daily. MORPHINE 15 MG TABLET Take 1-2 Tabs [...] Tab by mouth two times daily. WARFARIN 1 MG TABLET Take 1 mg by mouth once daily. WARFARIN 5 MG TABLET Take 5 mg by mouth once daily. Allergies Allergen Reactions Codeine Rash Penicillins Rash Sulfa (Sulfonamide Antibiotics) Trimethoprim Past Medical History Diagnosis Date Diabetes mellitus [...] reflux disease) Seizure disorder Unspecified hemorrhagic conditions Past Surgical History Procedure Date Colectomy 2004 [...] Use: No PHYSICAL EXAM: Last Vitals: BP 130/75 | Pulse 65 | Temp (Src) 36.8 C (98.3 F) (Oral) | RR 18 | Ht 1.67 6 m (5' 6") | Wt 113.399 kg (250 lb) | SpO2 96% | BMI 40.37 kg/(m^2) Body mass index is 40.3 7 kg/(m^2). Physical Exam General: Patients general appearance: Alert, No distress, Cooperative and Smiling Head & Neck/Airway: Normocephalic; atraumatic; PERRL; EOMI; nl appearing ears and nose. Nec k ROM: fixed Neck Circumference: 45.5 cm. TM Distance:Normal Dentition: dentures-upper and missing teeth Mallampati: II Mouth Opening : > = 3 cm C-Spine: limited flexion & extension Neck Anatomy: Thick, obese Jaw Protrusion: N ormal, lower incisors can protrude past upper incisors [...] REVIEWED/ORDERED Lab Results Component Value Date WBC 8.89 06/29/2013 HB 15.5 06/29/2013 HCT 46.3 06/29/2013 PLT 255 06/29/2013 MCV 84.3 06/29/2013 RDW 14.6 03/02/2013 Lab Results Component Value Date NA 139 06/29/2013 K 3.4 06/29/2013 CL 102 06/29/2013 BICARB 27 06/29/2013 BUN 13 06/29/2013 CR 0.79 06/29/2013 GLU 106 06/29/2013 CA 8.9 06/29/2013 AST 66 06/29/2013 ALT 86 06/29/2013 AP 99 06/29/2013 TBILI 1.0 06/29/2013 TP 8.6 06/29/2013 ALB 4.1 06/29/2013 Lab Results Component Value Date ABO A 03/10/2013 RH Positive 03/10/2013 Lab Results Component Value Date A1C 8.3 06/29/2013 EKG: Personally reviewed, Lab Results Component Value Date RATE 68 03/10/2013 ATRIALRATE 68 03/10/2013 MD 202 03/10/2013 QRS 102 03/10/2013 QT 388 03/10/2013 QTC 412 03/10/2013 PAXIS 26 03/10/2013 RAXIS -46 03/10/2013 TAXIS 40 03/10/2013 EKGDX Value: Normal sinus rhythm Left axis deviation Inferior infarct , age undetermined Abnormal ECG "I have personally interpreted this report, either alone or with a trainee." C onfirmed by YANA STORY ([id number]) on 03/10/2013 7:22:13 PM 03/10/2013 MEDICAL DECISION MAKIN ACC/ AHA Perioperative Guidelines1. Need for emergency noncardiac surgery? b. No -> Proceed to next step. 2. Active Cardiac Conditions? These conditions mandate further investigation and manageme nt. A. Acute [place] within 7 days: no B. Unstable angina/Recent [place] (7- 30 days): no C. Decompensated CHF: no D. Significant arrhythmia: None E. Severe valvular disease: NONE 3. Low risk surgery? b. No -> proceed with next step. 4. Good functional capacity? MET ASSESSMENT: 3. METS--walking slowly on a flat surface f or 1-2 blocks; vacuuming, sweeping the floors, carrying groceries. 5. Assess Clinical Risk Factors? A. Ischemic heart disease: no B. Compensated / prior heart failure: no C. Diabetes mellitus (treated with insulin): no D. Renal insufficiency (Cr > 2): no E. Cerebrovascular disease: yes Rate of cardiac , non fatal [place], non fatal cardiac arrest (RCRI) 0 risk factors - 0.4% 1 risk factors - 1%, 2 risk factors - 7%, 3 or >risk factors - 11% (may benefit from perioperative beta blockers) Risk Factor Recommendations: 1-2 risk factors- proceed with planned surgery with HR control or consider noninvasive testing if it will manager change Surgery Risk: Intermediate Patient-related risk: Estimated ASA class -- 3 ASSESSMENT and RECOMMENDATIONS: Surgical/anesthesia risk assessment: Jorge L Cisneros is a 62 y.o. male with diagnosis of Os teoarthrosis, unspecified whether generalized or localized, pelvic region and thigh, sched ed for complex total hip arthroplasty, right. According to ACC/AHA, this patient has zero c linical risk factors and the recommendation is to delay surgery d/t uncontrolled DM. Medication management recommendations: The patient was advised to continue all usual med ications except as noted in Patient Instructions (After Visit Summary given to pt) Perioperative antibiotic prophylaxis: Standard (Consider IV Vanco one hr before procedu re in pts with Cephalosporin/PCN allergy and/or with hx of MRSA) HTN - stable, controlled on lisinopril. Advised to hold ACEI morning of surgery antiphosolipid antibody syndrome - hx CVA, RLE DVT. Stable on coumadin. Will require fanta enox bridging. Chronic pain - stable, pt weaning morphine and medical marijuana. Taking about 30mg shor t-acting morphine daily. Ankylosing spondylitis - stable. Considering Humira for therapy, but has not started kayden ing yet (waiting until after surgery). Anesthesia concerns - extremely limited neck mobility d/t fusion. Pt is difficult intuba tion, requiring glidescope. MSSA/MRSA protocol - nasal swab obtained, chg wipes given. Will notify pt if positive fo r staph aureus. Type II DM - uncontrolled. Taking 1 PO hypoglycemic. Hb a1c - 8.[address] Walker. Recommend delaying surgery at this time until hb a1c <8.0. This patient is not medically stable for surgery. Further testing/optimization is needed. Thank you for the opportunity to contribute to this patient's care. ANGELINE ARAMBULA NP [facility] [address] [facility] [address] I counseled the patient regarding perioperative risk [...] | HEMOGLOBIN A1C, POC | Routin | 06/29/2013 | Preop examination | Results for this | | | e | 3:18 PM | | procedure are in the | | | | PST | | results section. | + +--------+ + + + | CBC AND AUTO DIFF | Routin | 06/29/2013 | Preop examination | Results for this | | | e | 1:19 PM | | procedure are in the | | | | PST | | results section. | + +--------+ + + + | INR | Routin | 06/29/2013 | Preop examination | Results for this | | | e | 1:19 PM | | procedure are in the | | | | PST | | results section. | + +--------+ + + + | CBC, WITH | Routin | 06/29/2013 | Preop examination | Results for this | | DIFFERENTIAL | e | 1:19 PM | | procedure are in the | | | | PST | | results section. | + +--------+ + + + | COMPLETE METABOLIC | Routin | 06/29/2013 | Preop examination | Results for this | | SET | e | 1:19 PM | | procedure are in the | | (NA,K,CL,CO2,BUN,CRE | | PST | | results section. | | AT,GLUC,CA,AST,ALT,B | | | | | | AARON TOTAL,ALK | | | | | | PHOS,ALB,PROT TOTAL) | | | | | + +--------+ + + + | ANTIBODY SCREEN | Routin | 06/29/2013 | Preop examination | Results for this | | | e | 1:19 PM | | procedure are in the | | | | PST | | results section. | + +--------+ + + + | TYPE AND SCREEN | Routin | 06/29/2013 | Preop examination | Results for this | | | e | 1:19 PM | | procedure are in the | | | | PST | | results section. | + +--------+ + + + | ABO & RH TYPE | Routin | 06/29/2013 | Preop examination | Results for this | | | e | 1:19 PM | | procedure are in the | | | | PST | | results section. | + +--------+ + + + | CULTURE, NASAL BACTI | Routin | 06/29/2013 | Preop examination | Results for this | | | e | 1:18 PM | | procedure are in the | | | | PST | | results section. | + +--------+ + + + | LAB REPORTS | | 05/26/2013 | | Results for this | | [...] | + + | Sameera Patel - 10/12/2013 11:30 AM PST | + + HEMOGLOBIN A1C,POC (06/29/2013 3:18 PM PST) + +---------+ + + + | Component | Value | Ref Range | Performed | Pathologist | | | | | At | Signature | + +---------+ + + + | HEMOGLOBIN | 8.3 (H) | 4.0 - 5.7 % | [...] [facility] | [address] | [place], [place] | | | [facility] | [address] | [address] | | | TESTS | | | | + + + + + CBC AND AUTO DIFF (06/29/2013 1:19 PM PST) + + + + + + | Component | Value | Ref Range | Performed | Pathologist | | | | | At | Signature | + + + + + + | WHITE CELL | 8.89 | 4.40 - 11.00 | [facility] | | | COUNT | | K/cu mm | LABORATORY | | | | | | SERVICES, | | | | | | CORE | | + + + + + + | RED CELL | 5.49 | 4.50 - 6.00 | [facility] | | | COUNT | | M/cu mm | LABORATORY | | | | | | SERVICES, | | | | | | CORE | | + + + + + + | HEMOGLOBIN | 15.5 | 13.5 - 17.5 | [facility] | | | | | g/dL | LABORATORY | | | | | | SERVICES, | | | | | | CORE | | + + + + + + | HEMATOCRIT | 46.3 | 41.0 - 53.0 % | [facility] | | | | | | LABORATORY | | | | | | SERVICES, | | | | | | CORE | | + + + + + + | MCV | 84.3 | 80.0 - 96.0 fL | [facility] | | | | | | LABORATORY | | | | | | SERVICES, | | | | | | CORE | | + + + + + + | MCHC | 33.5 | 33.0 - 35.5 | [facility] | | | | | g/dL | LABORATORY | | | | | | SERVICES, | | | | | | CORE | | + + + + + + | RDW SD | 40.8 | 35.1 - 46.3 fL | [facility] | | | | | | LABORATORY | | | | | | SERVICES, | | | | | | CORE | | + + + + + + | PLATELET | 255 | 150 - 400 K/cu | [facility] [...] + + + + + + | NEUTROPHIL | 60.5 | 50.0 - 70.0 % | [facility] | | | % | | | LABORATORY | | | | | | SERVICES, | | | | | | CORE | | + + + + + + | LYMPHOCYTE | 26.5 | 18.0 - 42.0 % | [facility] | | | % | | | LABORATORY | | | | | | SERVICES, | | | | | | CORE | | + + + + + + | MONOCYTE % | 7.1 | 3.5 - 9.0 % | [facility] | | | | | | LABORATORY | | | | | | SERVICES, | | | | | | CORE | | + + + + + + | EOS % | 4.5 (H) | 1.0 - 3.0 % | [facility] | | | | | | LABORATORY | | | | | | SERVICES, | | | | | | CORE | | + + + + + + | BASO % | 1.0 | 0.0 - 2.0 % | [facility] | | | | | | LABORATORY | | | | | | SERVICES, | | | | | | CORE | | + + + + + + | IG% | 0.4 | 0.0 - 0.6 % | [facility] | | | | | | LABORATORY | | | | | | SERVICES, | | | | | | CORE | | + + + + + + | NEUTROPHIL | 5.37 | 1.80 - 7.70 | [facility] | | | # | | K/cu mm | LABORATORY | | | | | | SERVICES, | | | | | | CORE | | + + + + + + | LYMPHOCYTE | 2.36 | 1.00 - 4.80 | [facility] | | | # | | K/cu mm | LABORATORY | | | | | | SERVICES, | | | | | | CORE | | + + + + + + | MONOCYTE # | 0.63 | 0.10 - 0.90 | [facility] | | | | | K/cu mm | LABORATORY | | | | | | SERVICES, | | | | | | CORE | | + + + + + + | EOS # | 0.40 | 0.00 - 0.50 | [facility] | | | | | K/cu mm | LABORATORY | | | | | | SERVICES, | | | | | | CORE | | + + + + + + | BASO # | 0.09 | 0.00 - 0.10 | [facility] | | | | | K/cu mm | LABORATORY | | | | | | SERVICES, | | | | | | CORE | | + + + + + + | IG# | 0.04 (H) | 0.00 - 0.03 | [facility] | [...] are not included in the IG count. New | LABORATORY | | methodology and reference ranges for some CBC/Differential analytes in | PEARL, NAY | | effect on 03/10/13. | | + + + + + + + + | Performing | Address | City/State/Zipcode | Phone Number | | Organization | | | | + + + + + | [facility] | [address] | [place] [address] | | | SERVICES, CORE | [address] | | | + + + + + INR (06/29/2013 1:19 PM PST) + + + + + + | Component | Value | Ref Range | Performed | Pathologist | | | | | At | Signature | + + + + + + | INR | 2.73 (H) | 0.90 - 1.20 INR | [...] [facility] | [address] | [place] [address] | | | SERVICES, NAY | [address] | | | + + + + + COMPLETE METABOLIC SET (NA,K,CL,CO2,BUN,CREAT,GLUC,CA,AST,ALT,BILI TOTAL,ALK PHOS,ALB,PROT TOTAL) (06/29/2013 1:19 PM PST) + +---------+ + + + | Component [...] + + + | BUN, PLASMA | 13 | 6 - 20 mg/dL | [facility] | | | (LAB) | | | LABORATORY | | | | | | SERVICES, | | | | | | CORE | | + +---------+ + + + | CREATININE | 0.79 | 0.70 - 1.30 | [facility] | | | PLASMA | | mg/dL | LABORATORY | | | (LAB) | | | SERVICES, | | | | | | CORE | | + +---------+ + + + | EGFR | >60 | >60 mL/min | [facility] | | | - | | | LABORATORY | | | CYMRO | | | SERVICES, | | | | | | CORE | | + +---------+ + + + | EGFR NON | >60 | >60 mL/min | [facility] | | | -SARAH | | | LABORATORY | | | RICAN | | | SERVICES, | | | | | | CORE | | + +---------+ + + + | SODIUM, | 139 | 136 - 145 | [facility] | | | PLASMA | | mmol/L | LABORATORY | | | (LAB) | | | SERVICES, | | | | | | CORE | | + +---------+ + + + | POTASSIUM, | 3.4 | 3.4 - 5.0 | [facility] | [...] +---------+ + + + | BILIRUBIN | 1.0 | 0.3 - 1.2 mg/dL | [facility] | | | TOTAL | | | LABORATORY | | | | | | SERVICES, | | | | | | CORE | | + +---------+ + + + | TOTAL | 8.6 (H) | 6.4 - 8.2 g/dL | [facility] | | | PROTEIN, | | | LABORATORY | | | PLASMA | | | SERVICES, | | | (LAB) | | | CORE | | + +---------+ + + + | ALBUMIN, | 4.1 | 3.5 - 4.7 g/dL | [facility] | | | PLASMA | | | LABORATORY | | | (LAB) | | | SERVICES, | | | | | | CORE | | + +---------+ + + + | ALK PHOS | 99 | 56 - 119 U/L | [facility] | | | | | | LABORATORY | | | | | | SERVICES, | | | | | | CORE | | + +---------+ + + + | AST(SGOT) | 66 (H) | 15 - 41 U/L | [facility] | | | | | | LABORATORY | | | | | | SERVICES, | | | | | | CORE | | + +---------+ + + + | ALT (SGPT) | 86 (H) | 12 - 60 U/L | [facility] [...] + | ANION GAP | 10 | mmol/L | [facility] | | | [...] | | - Rapidly changing kidney function New reference range effective | | | 12/06/2012 for Total proteins performed in Core Lab only. | | + + + + + + + + | Performing | Address | City/State/Zipcode | Phone Number | | Organization | | | | + + + + + | [facility] | [address] | [place] [address] | | | [place] | [address] | | | + + + + + ANTIBODY SCREEN (06/29/2013 1:19 PM PST) + + + + + [...] [facility] | [address] | [place] [address] | | | SERVICES, | [address] | | | | TRANSFUSION MEDICINE | | | | + + + + + ABO & RH TYPE (06/29/2013 1:19 PM PST) + + + + + [...] + + + + + | [facility] | [address] | [place] [address] | | | SERVICES, | [address] | | | | TRANSFUSION MEDICINE | | | | + + + + + CULTURE, NASAL BACTI (06/29/2013 1:18 PM PST) + + + + + + | Component | Value | Ref Range | Performed | Pathologist | | | | | At | Signature | + + + + + + | SPECIMEN | Oral mucosa | | [facility] | | | TYPE | | | [facility] | | | | | | [place] | | + + + + + + | SOURCE BODY | Nasal | | [facility] | | | SITE | | | [facility] | | | | | | [place] | | + + + + + + | CULTURE | C NasalSource: | | [facility] - | | | RESULT | Nasal | | [facility] - | | | | Final | | [place] | | | | CULTURE RESULT:No | | | | | | Methicillin resistant | | | | | | Staphylococcus aureus | | | | | | isolated No Methicillin | | | | | | susceptible | | | | | | Staphylococcus aureus | | | | | | isolated. | | | | + + + + + + + + | Specimen | + + | Oral mucosa - Nasal | + + + + + + + | Performing | Address | City/State/Zipcode | Phone Number | | Organization | | | | + + + + + | [facility] | [address] | [place] [address] | | | [place] | | | | + + + + + LAB REPORTS (05/26/2013 12:00 AM PDT) + + + | Narrative | Performed At | + + + | | | | | | + + + + + | Procedure Note | + + | Sameera Patel - 10/27/2013 9:10 AM PST | + + documented in this encounter Visit Diagnoses + + | Diagnosis | + + | Preop examination - Primary Preoperative examination, unspecified | + + | Osteoarthrosis, hip Localized osteoarthrosis not specified whether primary or | | secondary, pelvic region and thigh | + + | Ankylosing spondylitis ([facility]) Ankylosing spondylitis | + + | Hypertension Unspecified essential hypertension | + + | Diabetes mellitus ([facility]) Type II or unspecified type diabetes mellitus without mention | | of complication, not stated as uncontrolled | + + | Antiphospholipid antibody syndrome (HCC) Primary hypercoagulable state | + + | Difficult intubation Other specified conditions influencing health status | + + documented in this encounter
--- OUTSIDE RECORDS SUMMARY | ~2019-01-28 | XMS | Encounter Summary ---
Demographics + + + | Address | [address] | | | [place] [address] | + + + | Home Phone | | + + + | Preferred Language | Unknown | + + + | Marital Status | Single | + + + | Adventist Affiliation | BAP | + + + | Race | or | + + + | Ethnic Group | Not or | + + + Author + + + | Author | [facility] | + + + | Organization | [facility] | + + + | [...] Team Providers + +------+ + | Care Qa Auditor Name | Role | Phone | + +------+ + | Gracie Mariano MD | PCP | Unavailable | + +------+ + Encounter Details +--------+ + + + + | Date | Type | Department | Care Team | Description | +--------+ + + + + | 02/15/ | Telephone | Endoscopic | Harinder Felton, | | | 2012 | | Procedural Unit at | [address] | | | | | [facility] | [place] [address] | | | | | [address] | [phone] | | | | | Mailcode: OC2 | | | | | | [facility] | | | | | | and [address], | | | | | | [address] | | | | | | [place], [place] | | | | | | [address] | | | | | | [phone] | | | +--------+ + + + [...]
--- OUTSIDE RECORDS SUMMARY | ~2019-01-28 | XMS | Encounter Summary ---
Demographics + + + | Address | [address] | | | [place] [address] | + + + | Home Phone [...] + + + | Author | [facility] | + + + | Organization | [facility] | + + + | Address | [...] Team Providers + +------+ + | Care Glory Hole Tender Name | Role | Phone | + +------+ + | Gracie Mariano MD | PCP | Unavailable | + +------+ + Encounter Details +--------+ + + + + | Date | Type | Department | Care Team | Description | +--------+ + + + + | 12/28/ | Document-Sc | UNKNOWN DEPARTMENT | Unknown . | | | 2012 | anned | [address] | | | | | | [facility] | | | | | | [place], [place] | | | | | | [address] | | | +--------+ + + + [...] | + +--------+ + + + | OUTSIDE CARDIOLOGY | | 12/28/2012 | | Results for this | | | | 12:00 AM | | procedure are in the | | | | PDT | | results section. | + +--------+ + + + | LAB REPORTS | | 01/28/2011 | | Results for this | | | | 12:00 AM | | procedure are in the | | | | PDT | | results section. | + +--------+ + + + documented in this encounter Results OUTSIDE CARDIOLOGY (12/28/2012 12:00 AM PDT) + + + | Narrative | Performed At | + + + | | | | | | + + + + + | Procedure Note | + + | Amanda Faculty - 11/25/2012 3:54 PM PDT | + + LAB REPORTS (01/28/2011 12:00 AM PDT) + + + | Narrative | Performed At | + + + | | | | | | + + + + + | Procedure Note | + + | Sameera Patel - 11/25/2012 3:54 PM PDT | + + documented in this encounter Visit Diagnoses Not on filedocumented in this encounter"
--- OUTSIDE RECORDS SUMMARY | ~2019-01-28 | XMS | Encounter Summary ---
Demographics + + + | Address | [address] | | | [place] [address] | + + + | Home Phone [...] Author + + + | Author | [facility] | + + + | Organization | [facility] | + + + | [...] Team Providers + +------+ + | Care Extrusion Die Template Maker Name | Role | Phone | + [...] | Aneesh Montemayor | Preop | | 2012 | | [facility] Clinic at | T, ASSISTANT PROFESSOR SCULPTURE-C,MPH | | | | | [facility] | | | | | | Stay [address] | | | | | | [facility] | | | | | | Mailcode: [id number] | | | | | | Bianca Garnett | | | | | | [address] [place], [place] | | | | | | [address] | | | | | | [phone] | | | +--------+ + + + [...]
--- OUTSIDE RECORDS SUMMARY | ~2019-01-28 | XMS | Encounter Summary ---
Demographics + + + | Address | [address] | | | [place] [address] | + + + | Home Phone [...] Author + + + | Author | [facility] | + + + | Organization | [facility] | + + + | [...] Team Providers + +------+ + | Care Ict Project Manager Name | Role | Phone | + +------+ + | Ino De León MD | PCP | Unavailable | + +------+ + Reason for Visit + + + | Reason | Comments | + + + | Pre-op evaluation | | + + + Encounter Details +--------+---------+ + + + | Date | Type | Department | Care Team | Description | +--------+---------+ + + + | 08/22/ | Office | Preoperative | Emperatriz Dolan, | Preop examination; | | 2008 | Visit | Medicine Clinic at | MD [address] | Osteoarthrosis, hip; | | | | MPV Floor Day | [facility] | Ankylosing | | | | Stay [address] | [place], [place] | spondylitis (HCC); | | | | [facility] | [address] | Other specified | | | | Mailcode: [id number] | [phone] | pre-operative | | | | [facility] | | examination | | | | [address] [place] [address] | | | | | | [address] | | | | | | [phone] | | | +--------+---------+ + + + [...] + + + | Blood Pressure | 151/89 | 08/22/2009 11:35 AM | | | | | PST | | + + + + + | Pulse | 87 | 08/22/2009 11:35 AM | | | | | PST | | + + + + + | Temperature | 36.5 C (97.7 F) | 08/22/2009 11:35 AM | | | | | PST | | + + + + + | Respiratory Rate | 14 | 08/22/2009 11:35 AM | | | | | PST | | + + + + + | Oxygen Saturation | 97% | 08/22/2009 11:35 AM | | | | | PST | | + + + + + | Inhaled Oxygen | - | - | | | Concentration | | | | + + + + + | Weight | 107.5 kg (237 lb) | 08/22/2009 11:35 AM | | | | | PST | | + + + + + | Height | 162.6 cm (5' 4") | 08/22/2009 11:35 AM | | | | | PST | | + + + + + | Body Mass Index | 40.68 | 08/22/2009 11:35 AM | | | | | PST | | + + + + + documented in this encounter Patient Instructions Patient Instructions Emperatriz Dolan MD - 08/22/2009 11:40 AM PSTPre-operative instructio ns DIET Nothing to eat or drink after midnight on the night prior to surgery. Your doctor will inst ruct you on what medications to take the morning of surgery. MEDICATIONS Unless otherwise directed by your provider, do not take any Aspirin, vitamin E or non-stero idal anti-inflammatory (NSAIDs i.e. Advil, Aleve, Ibuprofen) or herbal supplements seven day s prior to your surgery. These drugs may interfere with normal blood clotting and may cause excessive bleeding and bruising during or after the surgery. Please see the list below, ronnie tao has a list of products that contain Aspirin, Ibuprofen, or Vitamin E If you need a pain medication for general purposes, use Tylenol as directed. If you are in doubt about any medications that you are taking, please contact our office. PRE-OP BATHING/SHOWERING - HIBICLENS (Chlorhexidine Gluconate) Bathe or shower the evening before and the morning of your surgery Use the bottle of Hibiclens soap for the evening cleansing and the bottle in the morn ing Wash from your neck to your toes. BE CAREFUL NOT TO WASH YOUR FACE OR HAIR WITH THIS SOLUTI ON After your shower or bathe do not apply lotions, powders, or deodorant SMOKING You should not smoke for four weeks prior to the procedure and two weeks after the procedur e. If you are a smoker, please speak with your provider. Smoking can significantly affect the outcome of your procedure. Smoking near the time of mclain rgery causes a more acute narrowing of the blood vessels, which may lead to decreased blood flow to the tissue, poor healing, bad scars, or actual loss of tissue. WHEN TO ARRIVE Check-in times for Hospital Admissions are not available until the day prior to surgery. So meone from your surgeon's office will contact you with your check in time. If you do not hea r from anyone by 3:00 PM please call your surgeons' office for [id number]. PARKING Parking for patients and visitors is available in the [facility] Parking structure located across from the emergency department. Patient parking is available on level 1 and 3. [facility] [facility] parking is available on the top level. TRANSPORTATION You will require transportation home on the day of discharge. Pain medications and physical activity restrictions may limit your ability to drive safely. CANCELLING YOUR PROCEDURE Please notify your surgeons's office as soon as possible should you need to cancel or mccray e your surgery date. We will attempt to reschedule your procedure in a timely manner however due to a limited amount of operating room time a waiting list is not uncommon. ILLNESS Please call your surgeons's office with any signs of illness such as cold, flu, infection, fever, or skin rash/infection anytime prior to your surgery. ADDITIONAL ADVICE FOR DAY OF SURGERY: Remove nail angolan from at least one fingernail (if applicable) Do not wear any jewelry to the hospital. Leave all your valuables at home! Wear loose, comfortable clothing. Allow enough travel time so you arrive at your check-in location on time. THINGS TO DO AFTER SURGERY: To prevent pneumonia, use an incentive spirometer or "peep breathe" to keep your lungs w orking properly and to help prevent respiratory complications. Use it 3-5 times an hour whi le awake. To prevent blood clots, leg and feet exercises will help maintain good circulation. Someti me your doctor will order "air compression stockings" to help the circulation in your legs. Registration Locations (please check in at one of the following registration desks prior to surgery) For surgeries scheduled to take place on the hill at the [facility]: Surgeries scheduled in the [facility] ( [facility]): registration is located on the 4th floor of [facility] (Day Surgery). Surgeries scheduled in the [facility]: registration is located on the 9th floor . For surgeries scheduled to take place at the [facility]: registration i s located on the 4th floor (Surgery Center). AVOID THESE MEDICATIONS FOR 7 DAYS BEFORE SURGERY PRODUCTS CONTAINING ASPIRIN Angeli-[place], Anacin, Anexsia with Codeine, Shun nos, Aspirin, Aspirin suppositories, Ascri ptin, Aspergum, Axotal, B-A-C, Baby Aspirin, Raji, BC Powder, Bexophene, Buffaprin, Bufferi n, Buffinol, Cama-Arthritis Strength, Congespirin, Lamar, Coricidin, Damason, Darvon, Dristan , Hilaria-Gesic, Digel, Dolprin #3 Tablets, Donatab, Doxaphene, Duragesic, Easprin, Ecotrin, Monalisa grin Forte, Emiprin, Emprazil, Equagesic, Equazine M, Excedrin, Fiogesic, Fiorgen PH, Fioric et, Fiorinal, 4-Way Cold Tablet Gemnisyn, Indocin, Liquprin, Lortab ASA, Magnaprin, Marnal, Meprobamate, Midol, Momentum, N orgesic, [place], Orphengesic, Pabalate, P-A-C, Percodan, Presalin, Robaxasil, Roxiprin, Tuan eto, Salocol SK-65 Compound, Sine-Aid, Sine-Off,, Bibb, Supac, Talwin Compound, Trigesic, Tolectin , Traiminicin, Vanquish, ZORprin, Zomax PRODUCTS CONTAINING IBUPROFEN Advil, Aleve, Haltran, Medipren, Midol, Motrin, Naproxyn, Nuprin, Rufen OTHER PRODUCTS WHICH MAY PROMOTE BLEEDING Vitamin E, Gingko Biloba, Marine Fatty Acids, Kidder-3 Fish Oil Supplements documented in this encounter Progress Notes Emperatriz Dolan MD - 08/22/2009 11:41 AM PSTFormatting of this note might be different fr om the original. PREOPERATIVE CONSULT NOTE Consulting Provider: EMPERATRIZ DOLAN MD Referring Physician: Dr. Walker Primary Care Provider: Ino DE LEÓN Reason for Consult: Preoperative evaluation and risk assessment Proposed Procedure/Date: Right hip arthroplasty; 09/04/08 HISTORY OF PRESENT ILLNESS: Jorge L Cisneros is a 58 y.o. male here for preoperative evaluation for above procedure. He's an unfortunate man with severe ankylosing spondylitis (completel y fused!) who also has OA and is in need of hip arthroplasty. He's been turned down for ni braeden locally because his neck is fused and he would be a difficult intubation. He reports t hat after his surgery for diverticulitis at [facility] he had an episode of tachycardia post op, possibly related to anesthesia. He also has pretty bad teeth and had just broken a tooth biting into gingerbread this . He states that he has remained physically active and he swims twice a week for 30 minute se ssions. He's not had any chest pain/pressure while exerting himself. Denies hx or other sy mptoms of CAD, CHF, CVA, CKD, DM. States that he's had significant wt loss this year becaus e of his regular exercise and no longer needs to take meds for DM or HTN. ROS: Pre-Anesthesia Questionaire reviewed. See scanned document. MEDICATIONS Current Medication List Name Sig ASPIRIN 81 MG TAB Take 81 mg by mouth once daily. LISINOPRIL 5 MG TAB Take 5 mg by mouth once daily. METFORMIN 500 MG TAB Take 500 mg by mouth. Take 1/2 tab twice a day MORPHINE SR 60 MG TAB Take 60 mg by mouth every twelve hours. MORPHINE 15 MG CAP Take 15 mg by mouth every four hours as needed. SIMVASTATIN 40 MG TAB Take 40 mg by mouth once daily in the evening. ALLERGIES Allergies Allergen Reactions Penicillins Rash Codeine Rash PMHx Diabetes mellitus type II 2007 Diverticula, colon 2002 Ankylosing spondylitis Spinal fusion Comment: Neck fusion from Cardiac murmur Osteoarthrosis, hip 05/23/2009 Comment: right hip PSurgHx Past Surgical History Procedure Date Hx colectomy 2003 partial, for diverticulitis Hx rotator cuff repair 1997 FamHx Family History Problem Relation Cancer Mother mesothelioma Heart Father SOCIAL Hx History Social History Marital Status: Single Spouse Name: N/A Number of Children: N/A Years of Education: N/A Occupational History Not on file. Social History Main Topics Tobacco Use: Quit Alcohol Use: No Drug Use: Yes Sexually Active: Not on file Other Topics Concern Not on file Social History Narrative No narrative on file PHYSICAL EXAM: Last Vitals: BP 151/89 | Pulse 87 | Temp(Src) 36.5 C (97.7 F) (Oral) | Resp 14 | Ht 1.6 26 m (5' 4") | Wt 107.502 kg (237 lb) | SpO2 97% Body mass index is 40.68 kg/(m^2). General: healthy, alert, no distress, cooperative, smiling HEENT: normal conjunctivae and anicteric sclerae, PERRLA, EOMI, oropharynx clear without lesion or exudates, appearance of ears/nose normal without lesions and hearing intact Airwa y: normal; Dentition: loose upper incisor; multiple missing teeth; gingivitis. Neck: Short:no; thick no; COMPETE LY NO ROM Lymphatic: no adenopathy, cervical and supraclavicular Respiratory: Good diaphragmatic excursion. Lungs clear to auscultation bilaterally Cardiac: RRR, 2/6 systolic murmur at RUSB Abdomen: Soft, nontender and nondistended with positive bowel sounds. and No organomegaly or masses. Musculoskeletal: no clubbing, cyanosis and nl muscle strength and tone Neuro: cranial nerves 2-12 intact, soft & sharp sensation normal and no tremor Skin: negative Psych: alert, oriented to person, place, time and nl affect LAB DATA REVIEWED/ORDERED Labs drawn at this visit: cbc, bmp, type and screen, Hgb A1C EKG: Personally reviewed, NSR, HR 83/min. LAD. No other significant abnl findings. Lab Results Component Value Date WBC 11.6 08/22/09 HB 14.9 08/22/09 HCT 44.5 08/22/09 PLT 304 08/22/09 MCV 84.4 08/22/09 RDW 15.6 08/22/09 Lab Results Component Value Date NA 137 08/22/09 K 3.8 08/22/09 CL 102 08/22/09 BICARB 25 08/22/09 BUN 14 08/22/09 CR 0.77 08/22/09 GLU 127 08/22/09 CA 9.4 08/22/09 MEDICAL DECISION MAKING: Revised Cardiac Risk Index (1 risk factor for each yes answer) Known ischemic heart disease: no Congestive Heart Failure: no Cerebrovascular disease: no Renal insufficiency (creatinine level > 2): no DM (requiring insulin): no High risk surgery (intraperitoneal, intrathoracic or suprainguinal vascular procedures): no Rate of cardiac , non fatal OR, non fatal cardiac arrest 0 risk factors - 0.4% 1 risk factors - 1%, 2 risk factors - 7%, 3 or >risk factors - 11% (may benefit from perioperative beta blockers) ACC/AHA guidelines: Major clinical predictors -- should not undergo elective surgery without further evaluat ion/treatment to reduce risk --None Intermediate clinical predictors -- no further testing if low-risk surgical procedures. A low MET score (<4) may signal need for noninvasive testing prior to intermediate or high- risk procedures. --DM Minor clinical predictors -- pts should undergo a MET assessment. Moderate good score c an proceed to surgery. Others may need noninvasive testing and medical therapy --None MET ASSESSMENT: 5. METS--Swims twice a week for 30 min sessions ASSESSMENT and RECOMMENDATIONS: Surgical/anesthesia risk assessment: Jorge L Cisneros is a 58 y.o. male with diagnosis of os teoarthritis, scheduled for Right Hip arthroplasty. The patient's RCRI rate of cardiac morb idity/mortality is 0.4%. The patient does not meet AHA clinical predictors (see above). Fu rther evaluation/treatment to reduce risk is not indicated. Medication management recommendations: The patient was advised to continue all usual med ications. See Patient Instructions. Perioperative antibiotic prophylaxis: Standard (Consider IV Vanco one hr before procedure in pts with Cephalosporin/PCN allergy and/or with hx of MRSA) Anesthesia related issues: Neck fusion from ankylosing spondylitis -- pt has no range of m otion about his neck. Reports hx of tachycardia after surgery for diverticulitis. Poor dentition with loose upper teeth and terrible gingivitis. Pt advised re: having the t eeth fixed (pulled?) before surgery. Will need to take abx for dental procedures afterwards . DM, pt no longer taking metformin. Has exercised regularly all through this year and has l ost almost 100 lbs. Reports last A1C to be 6.2. HTN, pt no longer taking Lisinopril. His BP needs to be monitored to determine whether he needs to restart his prior meds. Ankylosing spondylitis: pt's back is completely fused, including his neck. Uses morphine f or pain control. This patient is medically stable for surgery. Further testing/optimization is not needed. Thank you for the opportunity to contribute to this patient's care. EMPERATRIZ DOLAN MD [facility] PREOPERATIVE MEDICINE CLINIC [address] [facility] [phone] documented in this e ncounter Plan of Treatment + + +--------+ + + | Name | Type | Priori | Associated Diagnoses | Order Schedule | | | | ty | | | + + +--------+ + + | [place] COLLECTION VENOUS | Procedures | Routin | Preop examination | Ordered: 08/22/2009 | | BLOOD,VENIPUNCTURE | | e | | | + + +--------+ + + documented as of this encounter Procedures + +--------+ + + + | Procedure Name | Priori | Date/Time | Associated Diagnosis | Comments | | | ty | | | | + +--------+ + + + | BASIC METABOLIC SET | Routin | 08/22/2009 | Other specified | Results for this | | (NA, K, CL, TCO2, | e | 11:41 AM | pre-operative | procedure are in the | | BUN, CR, GLU, CA) | | PST | examination | results section. | + +--------+ + + + | CBC ONLY | Routin | 08/22/2009 | Other specified | Results for this | | | e | 11:41 AM | pre-operative | procedure are in the | | | | PST | examination | results section. | + +--------+ + + + | TYPE AND SCREEN | Routin | 08/22/2009 | Other specified | Results for this | | | e | 11:41 AM | pre-operative | procedure are in the | | | | PST | examination | results section. | + +--------+ + + + | HEMOGLOBIN A1C, | Routin | 08/22/2009 | Other specified | Results for this | | BLOOD | e | 11:41 AM | pre-operative | procedure are in the | | | | PST | examination | results section. | | | | | Ankylosing | | | | | | spondylitis (HCC) | | | | | | Osteoarthrosis, hip | | + +--------+ + + + | 12 LEAD ECG | Routin | 08/22/2009 | Preop examination | Results for this | | | e | 11:40 AM | | procedure are in the | | | | PST | | results section. | + +--------+ + + + documented in this encounter Results HEMOGLOBIN A1C, BLOOD (08/22/2009 11:41 AM PST) + +---------+ + + + | Component | Value | Ref Range | Performed | Pathologist | | | | | At | Signature | + +---------+ + + + | HEMOGLOBIN | 6.2 (H) | <5.8 % | [facility] | | | A1C | | | [facility] | | | | | | LABORATORY | | + +---------+ + + + + + | Specimen | + + | Blood - Blood | + + + + + | Narrative | Performed At | + + + | | [facility] | | Non-Diabetic: | REGIONAL | | 4.0 - 5.7% Risk | LABORATORY | | For Chronic Complications In Adults: | | | | | | Low <7.0% | | | | | | Medium 7.0-7.9% | | | | | | High >7.9% [facility] ([address] | | | Way Lab) [facility] [place] [address] | | [place] [address] | | + + + + + + + + | Performing | Address | City/State/Zipcode | Phone Number | | Organization | | | | + + + + + | [facility] | [address] | [place] [address] | | | LABORATORY | | | | + + + + + TYPE AND SCREEN (08/22/2009 11:41 AM PST) + + + + + + [...] | + + + + + | [facility] | [address] | [place] [address] | | | PATHOLOGY | [address] | | | + + + + + BASIC METABOLIC SET (NA, K, CL, TCO2, BUN, CR, GLU, CA) (08/22/2009 11:41 AM PST) + + + + + + | Component | Value | Ref Range | Performed | Pathologist | | | | | At | Signature | + + + + + + | GLUCOSE, | 127 (H) | 60 - 99 mg/dL | [...] + + + + | CREATININE | 0.77 | 0.70 - 1.30 | [facility] | | | PLASMA | | mg/dL | DEPARTMENT | | | (LAB) | | | OF | | | | | | PATHOLOGY | | + + + + + + | SODIUM, | 137 | 134 - 143 | [facility] | | | PLASMA | [...] + + + + | CALCIUM, | 9.4 | 8.6 - 10.2 | [facility] | | | PLASMA | | mg/dL | DEPARTMENT | | | (LAB) | | | OF | | | | | | PATHOLOGY | | + + + + + + | TOTAL CO2, | 25 | 23 - 31 mmol/L | [facility] | | | PLASMA | | | DEPARTMENT | | | (LAB) | | | OF | | | | | | PATHOLOGY | | + + + + + + | EGFR | > 60 | >60 mL/min | [facility] | | | - | | | DEPARTMENT | | | [place] | | | OF | | | [...] | + + + + + | [facility] | [address] | [place] [address] | | | PATHOLOGY | [address] | | | + + + + + CBC ONLY (08/22/2009 11:41 AM PST) + + + + + + | Component | Value | Ref Range | Performed | Pathologist | | | | | At | Signature | + + + + + + | WHITE CELL | 11.6 (H) | 4.4 - 11.0 K/cu | [facility] | | | COUNT | | mm | DEPARTMENT | | | | | | OF | | | | | | PATHOLOGY | | + + + + + + | RED CELL | 5.28 | 4.50 - 5.90 | [facility] | [...] | MCV | 84.4 | 80.0 - 96.0 fL | [facility] | | | | | | DEPARTMENT | | | | | | OF | | | | | | PATHOLOGY | | + + + + + + | MCHC | 33.5 | 33.4 - 35.5 | [facility] | | | | | g/dL | DEPARTMENT | | | | | | OF | | | | | | PATHOLOGY | | + + + + + + | RDW | 15.6 (H) | 11.5 - 15.0 % | [facility] | | | | | | DEPARTMENT | | | | | | OF | | | | | | PATHOLOGY | | + + + + + + | PLATELET | 304 | 150 - 400 K/cu | [facility] [...] | + + + + + | [facility] | [address] | [place] [address] | | | PATHOLOGY | [address] | | | + + + + + 12 LEAD ECG (08/22/2009 11:40 AM PST) + + + + + + | Component | Value | Ref Range | Performed | Pathologist | | | | | At | Signature | + + + + + + | VENTRICULAR | 83 | BPM | [facility] | | | RATE | | | OF | | | | | | CARDIOLOGY | | + + + + + + | ATRIAL RATE | 83 | BPM | [facility] | | | | | | OF | | | | | | CARDIOLOGY | | + + + + + + | P-R | 166 | ms | [facility] | | | INTERVAL | | | OF | | | | | | CARDIOLOGY | | + + + + + + | QRS | 92 | ms | [facility] | | | DURATION | | | OF | | | | | | CARDIOLOGY | | + + + + + + | QT | 368 | ms | [facility] | | | | | | OF | | | | | | CARDIOLOGY | | + + + + + + | QTC | 432 | ms | [facility] | | | | | | OF | | | | | | CARDIOLOGY | | + + + + + + | P AXIS | 28 | degrees | [facility] | | | | | | OF | | | | | | CARDIOLOGY | | + + + + + + | R AXIS | -57 | degrees | [facility] | | [...] DEPT | | | DIAGNOSIS | axis deviationAbnormal | | OF | | | | ECG"I have personally | | CARDIOLOGY | | | | interpreted this report, | | | | | | either alone or with a | | | | | | trainee."Confirmed by | | | | | | ALIA ALBERTO ([id number]) on | | | | | | 24-Aug-2009 20:51:48 | | | | + + + + + + | LINK TO | | | [facility] | | | [facility] | | | OF | | | (ECG | | | CARDIOLOGY | | | VIEWER) | | | | | + + + + + + + + | Specimen | + + | | + + + + + | Narrative | Performed At | + + + | Please click on view image for the detailed interpretation from | [facility] | | InBasket results. | CARDIOLOGY | + + + + + + + + | Performing | Address | City/State/Zipcode | Phone Number | | Organization | | | | + + + + + | [facility] | [address] | [place], [place] | | | CARDIOLOGY | [address] | [phone] | | + + + + + documented in this encounter Visit Diagnoses + + | Diagnosis | + + | Preop examination Preoperative examination, unspecified | + + | Osteoarthrosis, hip Localized osteoarthrosis not specified whether primary or | | secondary, pelvic region and thigh | + + | Ankylosing spondylitis (HCC) Ankylosing spondylitis | + + | Other specified pre-operative examination | + + documented in this encounter
--- OUTSIDE RECORDS SUMMARY | ~2019-01-28 | XMS | Encounter Summary ---
Demographics + + + | Address | [address] | | | [place] [address] | + + + | Home Phone [...] + + + | Author | [facility] | + + + | Organization | [facility] | + + + | Address | [...] Team Providers + +------+ + | Care Felt Checker Name | Role | Phone | + [...] +--------+---------+ + + + | 03/13/ | Surgery | 6A Intra Op [facility] | Milton Rodríguez MD | LAPAROSCOPIC | | 2012 | | [facility] | [address] [facility] | CHOLECYSTECTOMY, | | | | Admitting Desk | [facility], | CONVERTED TOOPEN | | | | Located on the | [place] [address] | INTRAOPERATIVE | | | | floor [address] [place] [address] | [phone] | CHOLANGIOGRAM, | | | | [facility] | | | | | | [place], [place] | | | | | | [address] | | | +--------+---------+ + + + [...] + + + | Blood Pressure | 141/66 | 03/19/2013 9:11 AM | | | | | PDT | | + + + + + | Pulse | 65 | 03/19/2013 9:11 AM | | | | | PDT | | + + + + + | Temperature | 36.6 C (97.9 F) | 03/19/2013 7:34 AM | | | | | PDT | | + + + + + | Respiratory Rate | 18 | 03/19/2013 4:34 AM | | | | | PDT | | + + + + + | Oxygen Saturation | 94% | 03/19/2013 4:34 AM | | | | | PDT | | + + + + + | Inhaled Oxygen | - | - | | | Concentration | | | | + + + + + | Weight | 114.1 kg (251 lb 9.6 | 03/18/2013 10:20 PM | | | | oz) | PDT | | + + + + + | Height | 177.8 cm (5' 10") | 03/11/2013 10:00 AM | | | | | PDT | | + + + + + | Body Mass Index | 36.1 | 03/11/2013 10:00 AM | | | | | PDT | | + + + + + documented in this encounter Discharge Summaries Milton Rodríguez MD - 03/20/2013 3:22 PM PDTI saw and evaluated the patient. I agree with the findings and the plan of care as documented in the resident s note. MILTON RODRÍGUEZ MD [facility] [address] [place] [address] romm, Raghavendra Hoyos MD - 0 03/20/2013 3:22 PM PDT INPATIENT PHYSICIAN DISCHARGE SUMMARY Author: RAGHAVENDRA VELASQUEZ MD Attending Physician: MILTON RODRÍGUEZ MD PCP: Gracie Mariano MD Admission Date: 03/10/2013 Discharge Date: 20 Mar 2013 Diagnoses Principal Final Diagnosis: 1. Acute cholecystitis Additional Diagnoses: Ventral Hernia Antiphospholipid antibody syndrome, chronic anticoagulation Diabetes mellitus type 2 Hypertension Acute on chronic pain Procedures 1. Exploratory laparoscopy. 2. Open cholecystectomy. 3. Intraoperative cholangiogram with intraoperative interpretation of images. Brief Hospital Course Jose Rafael Cisneros is a 62 y.o. male chronically anticoagulated for antiphospholipid antibody syn drome. He has a history of right lower extremity dvt and a history of CVA. He was recently discharged from [facility] ([place], [place]) for acute cholecystitis. On 03/06/13 had sudden onset epigastric pain and self-presented to the hospital. Gallbladder US at that art e showed gallstones and possible acute cholecystitis. The patient eventually improved and wa s discharged for evaluation at [facility] clinic. Prior abdominal surgery includes midline lap arotomy in 2003 for diverticulitis with bowel resection. Patient was admitted and taken to the OR and an open cholecystectomy was performed. The pa tient tolerated the procedure well and there were no intraoperative complications. Post ope ratively the patient did well except for post operative ileus. On post operative day six th e patient had return of bowel function. He was tolerating a diet without nausea, distention , or pain. His incisions were intact without signs of infection with conrado in place. Sg n for staple removal and follow up appointment in one week Medications: Discharge Medication List as of 03/19/2013 10:42 AM START taking these medications Details acetaminophen 650 mg Oral tablet Take 1 Tab by mouth every six hours., OTC !! morphine 15 mg Oral tablet Take 1-2 Tabs by mouth every three hours as needed for severe pain., Disp-45 Tab, R-0, Print Prescription polyethylene glycol 17 gram/dose Oral Powder Take 17 g by mouth once daily., Disp-119 g, OT C senna-docusate 8.6-50 mg Oral tablet Take 1 Tab by mouth two times daily., OTC !! - Potential duplicate medications found. Please discuss with provider. CONTINUE these medications which have NOT CHANGED Details Cholecalciferol, Vitamin D3, 5,000 unit Oral capsule Take 5,000 Units by mouth once daily. , Historical Med clotrimazole 1 % Topical Cream Apply to affected area two times daily. Apply to affected a grisel for 7 consecutive days. , Historical Med glipiZIDE 5 mg Oral tablet Take 5 mg by mouth two times daily., Historical Med levothyroxine 50 mcg Oral tablet Take 50 mcg by mouth once daily. , Historical Med lisinopril 10 mg Oral tablet Take 10 mg by mouth once daily. , Historical Med MEDICAL MARIJUANA once daily. 3 grams per day, Historical Med metoprolol tartrate 25 mg Oral tablet Take 25 mg by mouth two times daily. , Historical Me d !! morphine 15 mg Oral tablet Take 1 Tab by mouth every four hours as needed for severe clement n., Disp-200 Tab, R-0, Print Prescription morphine ER 60 mg Oral tablet extended release Take 1 Tab by mouth every twelve hours., Dis p-90 Tab, R-0, Print Prescription multivitamin Oral capsule Take 1 Cap by mouth once daily., Historical Med warfarin 5 mg Oral tablet Take 5 mg by mouth once daily., Historical Med !! - Potential duplicate medications found. Please discuss with provider. Diet Diabetic (Consistent Carbohydrate) Diabetic diet (Consistent Carbohydrate)- You should be careful to control your daily inta ke of carbohydrates and ensure that you are consuming the same amount of carbohydrates each day. Your health care provider will work with you to determine the appropriate amount of ca rbohydrates your body needs. Activity Abdominal precautions: Adhere to your abdominal precautions during healing, until you foll ow up with your physician after discharge. No heaving lifting. Nothing greater than 20lbs for 2 weeks Wound Care Keep clean and dry, okay to shower, no baths Other Discharge Orders and Instructions Please call [facility] or 911 with any concerns Including increased redness and swelling around incisions, drainage from incisions, fever of 101.5 or higher, i ntractable nausea and vomiting. Please go to emergency room if you experience any chest pain or shortness of breath. Destination: Destination: Home Condition on Discharge Good Vitals on discharge: Ht 177.8 cm (5' 10")( < 3 %ile), Wt 114.125 kg (251 lbs 9.6 oz)( < 3 % ile), BP 141/66, Pulse 65, Temperature 36.6 C (97.9 F), RR 18, SpO2 94%, BMI 36.1 kg/(m^ 2). Outstanding labs/studies: None Discharging Physician: RAGHAVENDRA VELASQUEZ MD Attending Physician: MILTON RODRÍGUEZ MD documented in this encoun ter Discharge Instructions Instructions Bryce Saxena RN - 03/19/2013Patient Education Materials: Continue above i nstructions Additional Instructions: See above instructions. Discharge Nurse: BRYCE SAXENA RN Date: 03/19/2013 Discharge Time: 10:40 AM documented in this encounter Medications at [...] documented as of this encounter Progress Notes Raghavendra Velasquez MD - 03/18/2013 5:13 AM PDTFormatting of this note might be different f rom the original. [facility] DEPARTMENT OF SURGERY EMERGENCY GENERAL SURGERY Division of Trauma and Critical Care Attending Physician: Raf Tello MD Progress Note Note Date: 03/18/2013 Admission Date: 03/10/2013 JOSE RAFAEL CISNEROS, Hospital Day #8 INTERVAL HISTORY and SUBJECTIVE: Passing flatus, no BM, no n/v, no fevers/sob/cp, pain well controlled. REVIEW OF SYSTEMS: Pain well controlled Flatus: YES Tolerating diet: Yes Nausea/Vomiting: None Bowel movement: NO Progressing with Physical Therapy NO The remainder of the complete review of system was negative. OBJECTIVE: I have reviewed the interval history and events. I have revewed the patients medications, l abs, vitals, and other applicable data points. Please refer to Contactually for this information . PHYSICAL EXAM: LAST VITALS: BP 122/62 | Pulse 66 | Temp 36.6 C (97.9 F) | RR 16 | Ht 1.778 m (5' 10") | Wt 113.127 kg (249 lb 6.4 oz) | SpO2 96% | BMI 35.79 kg/(m^2) 24 Hour Vital Min/Max: Systolic (24hrs), Av mmHg, Min:122 mmHg, Max:142 mmHg Diastoli c (24hrs), Av mmHg, Min:58 mmHg, Max:72 mmHg GENERAL: cooperative and oriented NEURO: awake, alert, and oriented and alert, conversant LUNGS: CTA bilateral CV: RRR and no murmur ABDOMEN: rotund, mildly distended, tympanitic, non tender, soft, active BS, passing lots of flatus, incisions dry, clean, and intact. Staple line with erythema, induration, or draina ge and intact. : good urine output Extremities:Warm and well perfused, no peripheral edema and ambulatory Patient Active Problem List Diagnosis Osteoarthrosis, hip Ankylosing Spondylitis Cholecystitis Ventral hernia Hypertension Diabetes mellitus Chronic pain Pruritus Imaging: ASSESSMENT, MEDICAL DECISION MAKING AND PLAN: 62 y.o. y/o male admitted on 03/10/2013 4:31 PM and hospital day 8. Active medical problems as listed below: Acute Cholecystitis: s/p open cholecystectomy, POD#5. -Tolerating diet - Pain well controlled - Passing large amounts of flatus. No bowel movement w stool softeners, suppository. KUB demonstrates full of stool. Adding magnesium citrate. Acute on chronic pain - PO pain medications yesterday Antiphospholipid antibody syndrome, chronic anticoagulation: On coumadin at home, reversed INR for surgery 03/13. - Anticoagulation with coumadin resumed, INR now 2.01 - Recheck INR tomorrow, plan to discontinue lovenox if INR is therapeutic. - Maintain SCD's until discharge. DM2; Pt controlled on glypizide at home. - 10U Glargine basal, sliding scale insulin. HTN: - metoprolol 25mg bid - Holding lisinopril for now. Pruritis: - on home triamcinolone cream Chronic pain: - Continue on home PO morphine. Electrolyte Imbalance-resolved DVT Prophylaxis: on therapeutic lovenox, coumadin resumed with INR now 2.01 Discharge Plan: Patient doing well post operatively, still awaiting full return of bowel function and resol ution of const[place] [phone] pager number [facility] [address] [place] [address] [place] [address] arciTez fontaine PLATING DEPARTMENT HELPER - 03/17/2013 2:33 PM PDT [facility] DEPARTMENT OF SURGERY EMERGENCY GENERAL SURGERY Division of Trauma and Critical Care Attending Physician: Raf Tello MD Progress Note Note Date: 03/17/2013 Admission Date: 03/10/2013 JOSE RAFAEL CISNEROS, Hospital Day #7 PROCEDURES: 03/13/13 1. Exploratory laparoscopy. 2. Open cholecystectomy. 3. Intraoperative cholangiogram with intraoperative interpretation of images. INTERVAL HISTORY and SUBJECTIVE: Patient stating he is having more abdominal distention t catrachita, with pain. No bm. Tolerating meals without nausea or vomiting. Has been ambulating a round halls. REVIEW OF SYSTEMS: The remainder of the complete review of system was negative. OBJECTIVE: I have reviewed the interval history and events. I have revewed the patients medications, l abs, vitals, and other applicable data points. Please refer to Contactually for this information . PHYSICAL EXAM: LAST VITALS: BP 136/72 | Pulse 80 | Temp 36.9 C (98.4 F) | RR 16 | Ht 1.778 m (5' 10") | Wt 119.9 kg (264 lb 5.3 oz) | SpO2 97% | BMI 37.93 kg/(m^2) 24 Hour Vital Min/Max: Systolic (24hrs), Av mmHg, Min:121 mmHg, Max:147 mmHg Diastoli c (24hrs), Av mmHg, Min:58 mmHg, Max:72 mmHg GENERAL: well-developed, well-nourished NEURO: awake, alert, and oriented LUNGS: CTA bilateral CV: RRR ABDOMEN: Obese abdomen, distended, tender to palpation from right mid to lower abdomen, janet e guarding. : good urine output and Patient voiding without difficulty Extremities:Warm and well perfused, ambulatory and IV sites clean, without infection Patient Active Problem List Diagnosis Osteoarthrosis, hip Ankylosing Spondylitis Cholecystitis Ventral hernia Hypertension Diabetes mellitus Chronic pain Pruritus ASSESSMENT, MEDICAL DECISION MAKING AND PLAN: 62 y.o. y/o male admitted on 03/10/2013 4:31 PM and hospital day 7. Active medical problems as listed below: Cholecystitis: s/p cholecystectomy 03/12, Today with decreased appetite, pain to abdomen. WB C 5 -Pt has flatus and belching. - KUB ordered - OOB ambulate TID chair TID Acute on Chronic Pain - Transitioned to PO pain medications today Antiphospholipid antibody syndrome, chronic anticoagulation: On coumadin at home, reversed INR for surgery 03/13. - Continue therapeutic lovenox - Resumed warfarin, follow INR 1.46 03/15 - Maintain SCD's despite irritation given high thrombosis risk and hx of DVT DM2; Pt controlled on glypizide at home. - Increased SSI, with basal insulin controlled. HTN: - metoprolol - Holding lisinopril for now. Pruritis: - restart home triamcinolone cream Chronic pain: - Continue on home PO morphine. Electrolyte Imbalance-resolved Discharge Plan: TBD ID: Antibiotics: na Fluids: orals Feeding: oral Analgesia: morphine Sedation: not indicated Thromboprophylaxis: loenox and warfarin Head of bed: > 30 Ulcer prophylaxis: omeprazole Glycemic control: adequate on insulin basal and sliding scale Activity/PT/OT: Ongoing Yogurt: ABX on [place] [phone] pager number [facility] [address] [facility] [phone] Anais Mccarthy MD - 03/16/2013 8:58 AM PDT [facility] DEPARTMENT OF SURGERY EMERGENCY GENERAL SURGERY Division of Trauma and Critical Care Attending Physician: Raf Tello MD Progress Note Note Date: 03/16/2013 Admission Date: 03/10/2013 JOSE RAFAEL CISNEROS, Hospital Day #6 INTERVAL HISTORY and SUBJECTIVE: No acute events overnight. No chest pain or shortness of breath. Complaining of some refl ux. Denies fevers or chills. REVIEW OF SYSTEMS: Pain controlled /10 Flatus: yes Tolerating diet: Tolerating regular diet Nausea/Vomiting: None Bowel movement: None Progressing with Physical Therapy None consulted The remainder of the complete review of system was negative. OBJECTIVE: I have reviewed the interval history and events. I have revewed the patients medications, l abs, vitals, and other applicable data points. Please refer to Contactually for this information . PHYSICAL EXAM: LAST VITALS: BP 145/73 | Pulse 70 | Temp 36.6 C (97.9 F) | RR 18 | Ht 1.778 m (5' 10") | Wt 119.9 kg (264 lb 5.3 oz) | SpO2 96% | BMI 37.93 kg/(m^2) 24 Hour Vital Min/Max: Systolic (24hrs), Av mmHg, Min:124 mmHg, Max:145 mmHg Diastoli c (24hrs), Av mmHg, Min:69 mmHg, Max:75 mmHg GENERAL: Awake in NAD NEURO: grossly intact LUNGS: CTAB CV: RRR ABDOMEN: Incision c/d/i, soft, appropriately tender, slightly distended Extremities:Warm and well perfused, no ble edema, 2+ dorsalis pedis pulses Patient Active Problem List Diagnosis Osteoarthrosis, hip Ankylosing Spondylitis Cholecystitis Ventral hernia ASSESSMENT, MEDICAL DECISION MAKING AND PLAN: 62 y.o. y/o male admitted on 03/10/2013 4:31 PM and hospital day 6. Active medical problems as listed below: Cholecystitis: s/p cholecystectomy 03/12, -Pt has flatus, will advance diet to diabetic - OOB ambulate TID chair TID Acute on Chronic Pain - Transitioned to PO pain medications today Antiphospholipid antibody syndrome, chronic anticoagulation: On coumadin at home, reversed INR for surgery 03/13. - Continue therapeutic lovenox - Resumed warfarin, follow INR 1.38 03/15 - Maintain SCD's despite irritation given high thrombosis risk and hx of DVT Ventral hernia: s/p repair 03/12. DM2; Pt controlled on glypizide at home. - Increased SSI, with basal insulin HTN: - metoprolol - Holding lisinopril for now. Pruritis: - restart home triamcinolone cream Chronic pain: - Continue on home PO morphine. Electrolyte Imbalance-resolved Discharge Plan: Home likely, 03/17 ID: Antibiotics: None Fluids: Saline locked Feeding: Diabetic Analgesia: INDUSTRIAL DESIGNER 0.6/6mins Sedation: not indicated Thromboprophylaxis: enoxaparin, SCDs Head of bed: > 30 Ulcer prophylaxis: None Glycemic control: Insulin lispro Activity/PT/OT: Up ad farzana Yogurt: ABX on Probiotics: None TEZ RAINEY NP [facility] [place] [id number] Nathalia Mccarthy MD - 03/15/2013 10:24 AM PDTFormatting of this note might be different from the mikkia l. [facility] DEPARTMENT OF SURGERY EMERGENCY GENERAL SURGERY Division of Trauma and Critical Care Attending Physician: Raf Tello MD Progress Note Note Date: 03/15/2013 Admission Date: 03/10/2013 JOSE RAFAEL CISNEROS, Hospital Day #5 INTERVAL HISTORY and SUBJECTIVE: No acute events overnight. Pt still complaining of some abdominal tightness. REVIEW OF SYSTEMS: Pain: Pain is still 03/01 with increased INDUSTRIAL DESIGNER 03/14 Flatus: NO Tolerating diet: Tolerating clears Nausea/Vomiting: None Bowel movement: NO Progressing with Physical Therapy: None, up ad farzana. The remainder of the complete review of system was negative. OBJECTIVE: I have reviewed the interval history and events. I have revewed the patients medications, l abs, vitals, and other applicable data points. Please refer to [facility] for this information . PHYSICAL EXAM: LAST VITALS: BP 126/69 | Pulse 72 | Temp 36.4 C (97.5 F) | RR 16 | Ht 1.778 m (5' 10") | Wt 119.9 kg (264 lb 5.3 oz) | SpO2 93% | BMI 37.93 kg/(m^2) 24 Hour Vital Min/Max: Systolic (24hrs), Av mmHg, Min:126 mmHg, Max:151 mmHg Diastoli c (24hrs), Av mmHg, Min:64 mmHg, Max:84 mmHg GENERAL: Awake in NAD NEURO: grossly intact LUNGS: breathing comfortably CV: RRR ABDOMEN: Distended abdomen, transverse abdominal incision, undressed, conrado intact, mild erythema at staple line. :Voiding without difficulty Extremities:Warm and well perfused, no edema Patient Active Problem List Diagnosis Osteoarthrosis, hip Ankylosing Spondylitis Cholecystitis Ventral hernia ASSESSMENT, MEDICAL DECISION MAKING AND PLAN: 62 y.o. y/o male admitted on 03/10/2013 4:31 PM and hospital day 5. Active medical problems as listed below: Cholecystitis: s/p cholecystectomy 03/12, -NPO with sips until passing flatus - OOB ambulate TID chair TID Acute on Chronic Pain - INDUSTRIAL DESIGNER dilaudid increase dose range and lockout. - restart home narcotic meds when passing flatus Antiphospholipid antibody syndrome, chronic anticoagulation: On coumadin at home, reversed INR for surgery 03/13. - Continue therapeutic lovenox - Resumed warfarin, follow INR 1.38 03/15 - Maintain SCD's despite irritation given high thrombosis risk and hx of DVT Ventral hernia: s/p repair 03/12. DM2; Pt controlled on glypizide at home. - Continue SSI - If poorly controlled on SSI while in house will have glycemic team follow. HTN: - metoprolol - Holding lisinopril for now. Pruritis: - restart home triamcinolone cream Chronic pain: - Continue on home PO morphine. Electrolyte Imbalance-resolved Discharge Plan: 3 to 5 days ID: Antibiotics: None Fluids: Saline locked Feeding: Clears Analgesia: INDUSTRIAL DESIGNER 0.6/6mins Sedation: not indicated Thromboprophylaxis: enoxaparin, SCDs Head of bed: > 30 Ulcer prophylaxis: None Glycemic control: Insulin lispro Activity/PT/OT: Up ad farzana Yogurt: ABX on Probiotics: [place] [phone] pager number [facility] [address] [place] [address] [place] [address] ez Rainey , PLATING DEPARTMENT HELPER - 03/14/2013 9:05 AM PDT [facility] DEPARTMENT OF SURGERY EMERGENCY GENERAL SURGERY Division of Trauma and Critical Care Attending Physician: Raf Tello MD Progress Note Note Date: 03/14/2013 Admission Date: 03/10/2013 JOSE RAFAEL CISNEROS, Hospital Day #4 INTERVAL HISTORY and SUBJECTIVE: history of chronic pain. INDUSTRIAL DESIGNER with pain. Will adjust dos e and lock out. REVIEW OF SYSTEMS: Pain poorly controlled Flatus: NO Tolerating diet: N/A Nausea/Vomiting: None Bowel movement: NO; Progressing with Physical Therapy YES The remainder of the complete review of system was negative. OBJECTIVE: I have reviewed the interval history and events. I have revewed the patients medications, l abs, vitals, and other applicable data points. Please refer to Contactually for this information . PHYSICAL EXAM: LAST VITALS: BP 124/68 | Pulse 91 | Temp 36.3 C (97.3 F) | RR 16 | Ht 1.778 m (5' 10") | Wt 118 kg (260 lb 2.3 oz) | SpO2 95% | BMI 37.33 kg/(m^2) 24 Hour Vital Min/Max: Systolic (24hrs), Av mmHg, Min:102 mmHg, Max:159 mmHg Diastoli c (24hrs), Av mmHg, Min:52 mmHg, Max:80 mmHg GENERAL: well-developed, well-nourished NEURO: awake, alert, and oriented LUNGS: CTA bilateral CV: RRR ABDOMEN: Distended abdomen, soft, incision with dressing RUQ transverse CDI : George catheter in place, good urine output and will cd today Extremities:Warm and well perfused, SCD's in place, ambulatory, toes pink and well perfuse d and IV sites clean, without infection Patient Active Problem List Diagnosis Osteoarthrosis, hip Ankylosing Spondylitis Cholecystitis Ventral hernia ASSESSMENT, MEDICAL DECISION MAKING AND PLAN: 62 y.o. y/o male admitted on 03/10/2013 4:31 PM and hospital day 4. Active medical problems as listed below: Cholecystitis: s/p cholecystectomy 03/12, -NPO with sips until passing flatus - OOB ambulate TID chair TID Acute on Chronic Pain - INDUSTRIAL DESIGNER dilaudid increase dose range and lockout. - restart home narcotic meds when passing flatus Antiphospholipid antibody syndrome, chronic anticoagulation: On coumadin at home, reversed INR for surgery 03/13. - Continue therapeutic lovenox - Resumed warfarin, follow INR 1.26 today - Maintain SCD's despite irritation given high thrombosis risk and hx of DVT Ventral hernia: s/p repair 03/12. DM2; Pt controlled on glypizide at home. - Continue SSI - If poorly controlled on SSI while in house will have glycemic team follow. HTN: - metoprolol - Holding lisinopril for now. Pruritis: - restart home triamcinolone cream Chronic pain: - Continue on home PO morphine. Electrolyte Imbalance - replete magnesium today Discharge Plan: 3 to 5 days ID: Antibiotics: na Fluids: D51/2 with 20kl Feeding: NPO Analgesia: dilaudid INDUSTRIAL DESIGNER Sedation: not indicated Thromboprophylaxis: enoxaparin 120mg bid for Antiphospholipid syndrome Head of bed: > 30 Ulcer prophylaxis: 2 Glycemic control: adequate Activity/PT/OT: Ongoing Yogurt: ABX on Probiotics: [place]INEY NP [phone] pager number [facility] A [address] [place] [phone] Richie Mandel MD - 03/14/2013 1:52 AM PDT [facility] DEPARTMENT OF SURGERY EMERGENCY GENERAL SURGERY Division of Trauma and Critical Care Attending Physician: Raf Tello MD Progress Note Note Date: 03/14/2013 Admission Date: 03/10/2013 JOSE RAFAEL CISNEROS, Hospital Day #4 INTERVAL HISTORY and SUBJECTIVE: OR yesterday, CCY and hernia repair. Tolerated well, adva nced diet okay. Pain controlled. VSS, Good uop. REVIEW OF SYSTEMS: Pain: well Flatus: y Tolerating diet: y Nausea/Vomiting: n Bowel movement: n Progressing with Physical Therapy: Not yet The remainder of the complete review of system was negative. OBJECTIVE: I have reviewed the interval history and events. I have revewed the patients medications, l abs, vitals, and other applicable data points. Please refer to [facility] for this information . PHYSICAL EXAM: LAST VITALS: BP 108/64 | Pulse 84 | Temp 36.6 C (97.9 F) | RR 16 | Ht 1.778 m (5' 10") | Wt 118 kg (260 lb 2.3 oz) | SpO2 96% | BMI 37.33 kg/(m^2) 24 Hour Vital Min/Max: Systolic (24hrs), Av mmHg, Min:102 mmHg, Max:159 mmHg Diastoli c (24hrs), Av mmHg, Min:52 mmHg, Max:80 mmHg GENERAL: awake, resting comfortably in bed, pleasant NEURO: Alert, oriented, gross motor function intact, oven stripper grossly intact, LUNGS: CTAB CV: RRR, no murmur ABDOMEN: Distended, tender near incision, no peritoneal signs, obese : george in place Extremities:Warm and well perfused, No pedal edema Patient Active Problem List Diagnosis Osteoarthrosis, hip Ankylosing Spondylitis Cholecystitis Ventral hernia ASSESSMENT, MEDICAL DECISION MAKING AND PLAN: 62 y.o. y/o male admitted on 03/10/2013 4:31 PM and hospital day 4. Active medical problems as listed below: Likely DC george in AM, DC INDUSTRI[employer] DES[employer] in AM Antiphospholipid antibody syndrome, chronic anticoagulation: On coumadin at home, reversed INR for surgery 03/13. - Continue therapeutic lovenox - Resumed warfarin - Maintain SCD's despite irritation given high thrombosis risk and hx of DVT Cholecystitis: s/p cholecystectomy 03/12, - Regular diet, tolerating well Ventral hernia: s/p repair 03/12. Acute pain DM2; Pt controlled on glypizide at home. - Continue SSI - If poorly controlled on SSI while in house will have glycemic team follow. HTN: - metoprolol - Holding lisinopril for now. Pruritis: - restart home triamcinolone cream Chronic pain: - Continue on home PO morphine. 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 - up ad farzana TID[place] [phone] pager number Replaced By [facility] [address] [facility] [id number] Ricky Mosley MD - 03/13/2013 8:35 AM PDTProcedure Date: 03/13/2013 Attending Physician: Steffen Rodríguez MD Assistants: Devin Gonzalez MD R5, Pee Alexander MD R2 Preoperative Diagnosis: History of acute cholecystitis Postoperative Diagnosis: same with choledocholithiasis Procedure Performed: 1. Exploratory laparoscopy 2. Open Cholecystectomy 3. Intraoperative cholangiogram with interpretation Findings: - inflammed gallbladder - cholangiogram initially demonstrated common bile duct stone in distal common bile duct wi th an extremely small cystic duct suggesting the stone to be a primary stone - After glucagon administration stone had passed and no filling defects Anesthesia: GETA Estimated Blood Loss: 300cc Fluids: 3L crystalloid UOP: 550cc Specimens: 1. Gall bladder Complications: none apparent Drains: none Disposition: - extubated in OR - stable to PACU - return to EGS samson Pee Benjamin Surgery, R3 P Arthur Murry MD - 03/12/2013 7:10 AM PDT [facility] DEPARTMENT OF SURGERY EMERGENCY GENERAL SURGERY PROGRESS NOTE: Note Date: 03/12/2013 Admission Date: 03/10/2013 JOSE RAFAEL CISNEROS, [id number] Hospital Day #2 SUBJECTIVE: - irritation and itching of of right leg - Otherwise feeling well. +flatus, +BM, no n/v MEDICATIONS: Reviewed in EPIC OBJECTIVE: VITAL SIGNS: Last 24 hour min/max Temp: 36.7 C (98.1 F) Temp Min: 36.6 C (97.9 F) Max: 36.7 C (98.1 F) Pulse: 77 Pulse Min: 59 Max: 77 Resp: 16 Resp Min: 16 Max: 16 BP: 141/70 mmHg BP Min: 124/70 Max: 152/79 SpO2: 97 % SpO2 Min: 96 % Max: 98 % Body mass index is 36.73 kg/(m^2). PHYSICAL EXAM: General: Alert and oriented, NAD Respiratory: unlabored, CTAB CV: RRR, no m/r/g Abdomen: soft, mildly tender, nondistended. : Pt voiding without issue Extremities: Warm and well perfused, SCD's in place LABS: Chemistries Recent Labs 03/10/13 1821 03/11/13 1518 03/11/13 1913 03/11/13 2355 NA 141 -- -- -- -- K 4.1 -- -- -- -- CL 106 -- -- -- -- BICARB 23 -- -- -- -- BUN 9 -- -- -- -- CR 0.73 -- -- -- -- GLU 184* < > 131* 164* 160* CA 8.5* -- -- -- -- MG 1.9 -- -- -- -- PO4 2.5 -- -- -- -- AST 42* -- -- -- -- ALT 61* -- -- -- -- AP 80 -- -- -- -- TBILI 0.8 -- -- -- -- ALB 3.3* -- -- -- -- < > = values in this interval not displayed. CBC with diff Recent Labs 03/10/13 1821 WBC 6.94 HB 13.3* HCT 40.4* PLT 214 Coag Lab Results Component Value Date INRPT 1.48* 03/12/2013 CBG's Recent Labs 03/10/13 1804 03/10/13 1821 03/10/13 2147 03/11/13 0959 03/11/13 1518 03/11/13 1913 03/11/13 2355 GLU 195* 184* 210* 127* 131* 164* 160* ASSESSMENT AND PLAN: Jose Rafael Cisneros is a 62 y.o. y/o male admitted on 03/10/2013 4:31 PM and hospital day 2. Active medical problems as listed below: Antiphospholipid antibody syndrome, chronic anticoagulation: On coumadin at home, reversin g INR for surgery on Wednesday. INR reversing well. Vit K already started today. - Continue therapeutic lovenox - Repeat INR tomorrow AM - type and screen if FFP needed tonight - Hold lovenox after PM dose tonight. - Maintain SCD's despite irritation given high thrombosis risk and hx of DVT Cholecystitis: Previously treated non-op, - planned for laparoscopic zai on Wednesday pending INR reversal - Regular diet for now, NPO at midnight on 03/12 Ventral hernia: Reducible. - Hernia repair planned for tomorrow after lap zia DM2; Pt controlled on glypizide at home. So far doing well on SSI overnight. - Continue SSI - If poorly controlled on SSI while in house will have glycemic team follow. HTN: - Restart home metoprolol - Holding lisinopril for now. Pruritis: - restart home triamcinolone cream Chronic pain: - Continue on home PO morphine. ID: Antibiotics: Pre-op abx ordered. Not indicated now. Fluids: PO Feeding: Reg Analgesia: PO morphine Sedation: not indicated Thromboprophylaxis: Therapeutic lovenox Head of bed: > 30 Ulcer prophylaxis: n/a Glycemic control: SSI Activity/PT/OT: Ordered. - pt needs assist getting out of bed, but can ambulate. Discharge disposition/Date: Pending operation on wednesday Discharge follow up: EGS TBD. ARTHUR HERRERA MD [facility] [address] [place] [id number] Diagnoses: [id number] Cholecystitis [id number] Ventral hernia V72.83 Other specified pre-operative examination aArthur allan MD - 03/11/2013 7:02 AM PDT [facility] DEPARTMENT OF SURGERY Attending Physician: Raf Tello MD Progress Note Note Date: 03/11/2013 Admission Date: 03/10/2013 JOSE RAFAEL CISNEROS, [id number] Hospital Day #1 INTERVAL HISTORY and SUBJECTIVE: pt doing moderately well this morning. Having some pain a nd had difficulty sleeping last night. No n/v, BM yesterday. REVIEW OF SYSTEMS: Pain well controlled Flatus: YES Tolerating diet: Yes Nausea/Vomiting: None Bowel movement: YES; When: Yesterday. Progressing with Physical Therapy NO - will get oob today The remainder of the complete review of system was negative. MEDICATIONS: Reviewed OBJECTIVE I have reviewed the interval history and events. I have revewed the patients medications, l abs, vitals, and other applicable data points. Please refer to [facility] for this information . PHYSICAL EXAM: Last Vitals: BP 124/70 | Pulse 59 | Temp 36.6 C (97.9 F) | RR 16 | Ht 1.778 m (5' 10") | Wt 116.121 kg (256 lb) | SpO2 98% | BMI 36.73 kg/(m^2) 24 Hour Vital Min/Max: Systolic (24hrs), Av mmHg, Min:124 mmHg, Max:144 mmHg Diastolic (24hrs), Av mmHg, Min:61 mmHg, Max:70 mmHg Temp Av.7 C (98 F) Min: 36.6 C (97.9 F) Max: 36.7 C (98.1 F)Pulse Av.5 Min: 67 Max: 68 Resp Av.7 Min: 16 Max: 18 SpO2 Av.5 % Min: 97 % Max: 98 % Intake/Output Summary (Last 24 hours) at 03/11/13 07 Last data filed at 03/11/13 0500 Gross per 24 hour Intake 2020 ml Output 3175 ml Net -1155 ml GENERAL: Pleasant obese male, well-developed, well-nourished NEURO: awake, alert, and oriented LUNGS: CTA bilateral CV: RRR ABDOMEN: obese abdomen, mild tenderness in RUQ, soft, nondistended, active BS. Palpable soheila tral hernia, reducible. : Patient voiding without difficulty Extremities:Warm and well perfused, Chronic 1+ pedal edema bilaterally. Patient Active Hospital Problem List: 1) Cholecystitis 2) Ventral hernia LABS: Recent Labs 12/28/12 1224 03/02/13 1116 03/10/13 1821 03/10/13 2147 03/11/13 0959 NA 135* -- 139 -- 141 -- -- K 4.3 -- 4.6 -- 4.1 -- -- CL 102 -- 103 -- 106 -- -- BICARB 19* -- 26 -- 23 -- -- BUN 10 -- 13 -- 9 -- -- CR 0.76 -- 0.78 -- 0.73 -- -- GLU 110* < > 112* < > 184* 210* 127* CA 8.7 -- 9.7 -- 8.5* -- -- AST -- -- 33 -- 42* -- -- ALT -- -- 61* -- 61* -- -- AP -- -- 94 -- 80 -- -- TBILI -- -- 0.7 -- 0.8 -- -- TP -- -- 8.4* -- 7.2 -- -- ALB -- -- 3.9 -- 3.3* -- -- < > = values in this interval not displayed. Recent Labs 03/02/13111503/10/13 1821 WBC 7.9 6.94 RBC 5.21 4.74 HB 15.4 13.3* HCT 45.6 40.4* PLT 237 214 Recent Labs 03/02/13111503/10/13 1821 AST 33 42* ALT 61* 61* TBILI 0.7 0.8 AP 94 80 ALB 3.9 3.3* TP 8.4* 7.2 Lab Results Component Value Date APTT 49.3* 03/10/2013 Lab Results Component Value Date INRPT 2.61* 03/11/2013 ASSESSMENT/PLAN: 62 y.o. y/o male admitted on 03/10/2013 4:31 PM and hospital day 1. Activ e medical problems as listed below: Antiphospholipid antibody syndrome, chronic anticoagulation: On coumadin at home, reversin g INR for surgery on Wednesday - Therapeutic lovenox - Repeat INR this evening post Vit K - pt has type and screen done if FFP needed on Wednesday Cholecystitis: Previously treated non-op, - planned for laparoscopic zia on Wednesday pending INR reversal - Regular diet for now, NPO at midnight on 03/12 Ventral hernia: Reducible. - Hernia repair planned for Wednesday after lap zia DM2; Pt controlled on glypizide at home. So far doing well on SSI overnight. - Continue SSI - If poorly controlled on SSI while in house will have glycemic team follow. HTN: - Restart home metoprolol - Holding lisinopril for now. Chronic pain: - Continue on home PO morphine. ID: Antibiotics: Pre-op abx ordered. Not indicated now. Fluids: PO Feeding: Reg Analgesia: PO morphine Sedation: not indicated Thromboprophylaxis: Therapeutic lovenox Head of bed: > 30 Ulcer prophylaxis: n/a Glycemic control: SSI Activity/PT/OT: Ordered. - pt needs assist getting out of bed, but can ambulate. Discharge disposition/Date: Pending operation on wednesday Discharge follow up: EGS TBD. ARTHUR HERRERA MD Pager: [phone] [place] [address] documented in this en counter Plan of Treatment + +---------+--------+ + + | Name | Type | Priori | Associated Diagnoses | Date/Time | | | | ty | | | + +---------+--------+ + + | X-RAY CHOLANGIOGRAM | Imaging | Routin | | 03/13/2013 11:40 AM | | INTRAOP W/INJECTION | | e | | PDT | + +---------+--------+ + + + +---------+--------+ + + | Name | Type | Priori | Associated Diagnoses | Order Schedule | | | | ty | | | + +---------+--------+ + + | X-RAY CHOLANGIOGRAM | Imaging | Routin | | One Time for 1 | | INTRAOP W/INJECTION | | e | | Occurrences starting | | | | | | 03/13/2013 | + +---------+--------+ + + documented as of this encounter Procedures + +--------+ + + + | Procedure Name | Priori | Date/Time | Associated Diagnosis | Comments | | | ty | | | | + +--------+ + + + | PROCEDURE NOTE | Routin | 09/26/2015 | | Results for this | | | e | 9:55 PM | | procedure are in the | | | | PST | | results section. | + +--------+ + + + | CBC (HEMOGRAM) ONLY | Urgent | 03/19/2013 | | Results for this | | | | 7:22 AM | | procedure are in the | | | | PDT | | results section. | + +--------+ + + + | INR | Urgent | 03/19/2013 | | Results for this | | | | 7:22 AM | | procedure are in the | | | | PDT | | results section. | + +--------+ + + + | RENAL FUNCTION SET | Urgent | 03/19/2013 | | Results for this | | (NA,K,CL,CO2,BUN,CRE | | 7:22 AM | | procedure are in the | | AT,GLUC,CA,PHOS,ALB | | PDT | | results section. | | ) | | | | | + +--------+ + + + | CBC ONLY | Urgent | 03/19/2013 | | Results for this | | | | 7:22 AM | | procedure are in the | | | | PDT | | results section. | + +--------+ + + + | MAGNESIUM, PLASMA | Urgent | 03/19/2013 | | Results for this | | | | 7:22 AM | | procedure are in the | | | | PDT | | results section. | + +--------+ + + + | CAPILLARY BLOOD | Routin | 03/18/2013 | | Results for this | | GLUCOSE (NO CHG), | e | 9:07 PM | | procedure are in the | | POC | | PDT | | results section. | + +--------+ + + + | CAPILLARY BLOOD | Routin | 03/18/2013 | | Results for this | | GLUCOSE (NO CHG), | e | 12:10 PM | | procedure are in the | | POC | | PDT | | results section. | + +--------+ + + + | CBC (HEMOGRAM) ONLY | Urgent | 03/18/2013 | | Results for this | | | | 7:01 AM | | procedure are in the | | | | PDT | | results section. | + +--------+ + + + | INR | Urgent | 03/18/2013 | | Results for this | | | | 7:01 AM | | procedure are in the | | | | PDT | | results section. | + +--------+ + + + | RENAL FUNCTION SET | Urgent | 03/18/2013 | | Results for this | | (NA,K,CL,CO2,BUN,CRE | | 7:01 AM | | procedure are in the | | AT,GLUC,CA,PHOS,ALB | | PDT | | results section. | | ) | | | | | + +--------+ + + + | CBC ONLY | Urgent | 03/18/2013 | | Results for this | | | | 7:01 AM | | procedure are in the | | | | PDT | | results section. | + +--------+ + + + | MAGNESIUM, PLASMA | Urgent | 03/18/2013 | | Results for this | | | | 7:01 AM | | procedure are in the | | | | PDT | | results section. | + +--------+ + + + | CAPILLARY BLOOD | Routin | 03/17/2013 | | Results for this | | GLUCOSE (NO CHG), | e | 10:38 PM | | procedure are in the | | POC | | PDT | | results section. | + +--------+ + + + | CAPILLARY BLOOD | Routin | 03/17/2013 | | Results for this | | GLUCOSE (NO CHG), | e | 5:21 PM | | procedure are in the | | POC | | PDT | | results section. | + +--------+ + + + | X-RAY ABDOMEN 1 VIEW | Routin | 03/17/2013 | | Results for this | | | e | 4:51 PM | | procedure are in the | | | | PDT | | results section. | + +--------+ + + + | CAPILLARY BLOOD | Routin | 03/17/2013 | | Results for this | | GLUCOSE (NO CHG), | e | 11:43 AM | | procedure are in the | | POC | | PDT | | results section. | + +--------+ + + + | CBC (HEMOGRAM) ONLY | Urgent | 03/17/2013 | | Results for this | | | | 6:59 AM | | procedure are in the | | | | PDT | | results section. | + +--------+ + + + | INR | Urgent | 03/17/2013 | | Results for this | | | | 6:59 AM | | procedure are in the | | | | PDT | | results section. | + +--------+ + + + | RENAL FUNCTION SET | Urgent | 03/17/2013 | | Results for this | | (NA,K,CL,CO2,BUN,CRE | | 6:59 AM | | procedure are in the | | AT,GLUC,CA,PHOS,ALB | | PDT | | results section. | | ) | | | | | + +--------+ + + + | CBC ONLY | Urgent | 03/17/2013 | | Results for this | | | | 6:59 AM | | procedure are in the | | | | PDT | | results section. | + +--------+ + + + | MAGNESIUM, PLASMA | Urgent | 03/17/2013 | | Results for this | | | | 6:59 AM | | procedure are in the | | | | PDT | | results section. | + +--------+ + + + | CAPILLARY BLOOD | Routin | 03/17/2013 | | Results for this | | GLUCOSE (NO CHG), | e | 12:22 AM | | procedure are in the | | POC | | PDT | | results section. | + +--------+ + + + | CAPILLARY BLOOD | Routin | 03/16/2013 | | Results for this | | GLUCOSE (NO CHG), | e | 8:52 PM | | procedure are in the | | POC | | PDT | | results section. | + +--------+ + + + | CAPILLARY BLOOD | Routin | 03/16/2013 | | Results for this | | GLUCOSE (NO CHG), | e | 9:32 AM | | procedure are in the | | POC | | PDT | | results section. | + +--------+ + + + | CBC (HEMOGRAM) ONLY | Urgent | 03/16/2013 | | Results for this | | | | 6:19 AM | | procedure are in the | | | | PDT | | results section. | + +--------+ + + + | INR | Urgent | 03/16/2013 | | Results for this | | | | 6:19 AM | | procedure are in the | | | | PDT | | results section. | + +--------+ + + + | RENAL FUNCTION SET | Urgent | 03/16/2013 | | Results for this | | (NA,K,CL,CO2,BUN,CRE | | 6:19 AM | | procedure are in the | | AT,GLUC,CA,PHOS,ALB | | PDT | | results section. | | ) | | | | | + +--------+ + + + | CBC ONLY | Urgent | 03/16/2013 | | Results for this | | | | 6:19 AM | | procedure are in the | | | | PDT | | results section. | + +--------+ + + + | MAGNESIUM, PLASMA | Urgent | 03/16/2013 | | Results for this | | | | 6:19 AM | | procedure are in the | | | | PDT | | results section. | + +--------+ + + + | CAPILLARY BLOOD | Routin | 03/16/2013 | | Results for this | | GLUCOSE (NO CHG), | e | 6:02 AM | | procedure are in the | | POC | | PDT | | results section. | + +--------+ + + + | CAPILLARY BLOOD | Routin | 03/15/2013 | | Results for this | | GLUCOSE (NO CHG), | e | 10:42 PM | | procedure are in the | | POC | | PDT | | results section. | + +--------+ + + + | CAPILLARY BLOOD | Routin | 03/15/2013 | | Results for this | | GLUCOSE (NO CHG), | e | 10:04 PM | | procedure are in the | | POC | | PDT | | results section. | + +--------+ + + + | CAPILLARY BLOOD | Routin | 03/15/2013 | | Results for this | | GLUCOSE (NO CHG), | e | 6:03 PM | | procedure are in the | | POC | | PDT | | results section. | + +--------+ + + + | CAPILLARY BLOOD | Routin | 03/15/2013 | | Results for this | | GLUCOSE (NO CHG), | e | 1:59 PM | | procedure are in the | | POC | | PDT | | results section. | + +--------+ + + + | HEPARIN, EITHER | Routin | 03/15/2013 | | Results for this | | STANDARD / LMW, | e | 1:44 PM | | procedure are in the | | BLOOD | | PDT | | results section. | + +--------+ + + + | OPERATION RECORD | | 03/15/2013 | | Results for this | | | | 1:17 PM | | procedure are in the | | | | PDT | | results section. | + +--------+ + + + | CAPILLARY BLOOD | Routin | 03/15/2013 | | Results for this | | GLUCOSE (NO CHG), | e | 9:25 AM | | procedure are in the | | POC | | PDT | | results section. | + +--------+ + + + | CBC (HEMOGRAM) ONLY | Urgent | 03/15/2013 | | Results for this | | | | 5:56 AM | | procedure are in the | | | | PDT | | results section. | + +--------+ + + + | INR | Urgent | 03/15/2013 | | Results for this | | | | 5:56 AM | | procedure are in the | | | | PDT | | results section. | + +--------+ + + + | RENAL FUNCTION SET | Urgent | 03/15/2013 | | Results for this | | (NA,K,CL,CO2,BUN,CRE | | 5:56 AM | | procedure are in the | | AT,GLUC,CA,PHOS,ALB | | PDT | | results section. | | ) | | | | | + +--------+ + + + | CBC ONLY | Urgent | 03/15/2013 | | Results for this | | | | 5:56 AM | | procedure are in the | | | | PDT | | results section. | + +--------+ + + + | MAGNESIUM, PLASMA | Urgent | 03/15/2013 | | Results for this | | | | 5:56 AM | | procedure are in the | | | | PDT | | results section. | + +--------+ + + + | CAPILLARY BLOOD | Routin | 03/14/2013 | | Results for this | | GLUCOSE (NO CHG), | e | 10:17 PM | | procedure are in the | | POC | | PDT | | results section. | + +--------+ + + + | CAPILLARY BLOOD | Routin | 03/14/2013 | | Results for this | | GLUCOSE (NO CHG), | e | 6:30 PM | | procedure are in the | | POC | | PDT | | results section. | + +--------+ + + + | CAPILLARY BLOOD | Routin | 03/14/2013 | | Results for this | | GLUCOSE (NO CHG), | e | 12:17 PM | | procedure are in the | | POC | | PDT | | results section. | + +--------+ + + + | CBC (HEMOGRAM) ONLY | Urgent | 03/14/2013 | | Results for this | | | | 6:45 AM | | procedure are in the | | | | PDT | | results section. | + +--------+ + + + | INR | Urgent | 03/14/2013 | | Results for this | | | | 6:45 AM | | procedure are in the | | | | PDT | | results section. | + +--------+ + + + | RENAL FUNCTION SET | Urgent | 03/14/2013 | | Results for this | | (NA,K,CL,CO2,BUN,CRE | | 6:45 AM | | procedure are in the | | AT,GLUC,CA,PHOS,ALB | | PDT | | results section. | | ) | | | | | + +--------+ + + + | CBC ONLY | Urgent | 03/14/2013 | | Results for this | | | | 6:45 AM | | procedure are in the | | | | PDT | | results section. | + +--------+ + + + | MAGNESIUM, PLASMA | Urgent | 03/14/2013 | | Results for this | | | | 6:45 AM | | procedure are in the | | | | PDT | | results section. | + +--------+ + + + | CAPILLARY BLOOD | Routin | 03/14/2013 | | Results for this | | GLUCOSE (NO CHG), | e | 6:26 AM | | procedure are in the | | POC | | PDT | | results section. | + +--------+ + + + | CAPILLARY BLOOD | Routin | 03/14/2013 | | Results for this | | GLUCOSE (NO CHG), | e | 12:38 AM | | procedure are in the | | POC | | PDT | | results section. | + +--------+ + + + | CAPILLARY BLOOD | Routin | 03/13/2013 | | Results for this | | GLUCOSE (NO CHG), | e | 6:36 PM | | procedure are in the | | POC | | PDT | | results section. | + +--------+ + + + | CAPILLARY BLOOD | Routin | 03/13/2013 | | Results for this | | GLUCOSE (NO CHG), | e | 1:41 PM | | procedure are in the | | POC | | PDT | | results section. | + +--------+ + + + | CBC (HEMOGRAM) ONLY | Urgent | 03/13/2013 | | Results for this | | | | 1:33 PM | | procedure are in the | | | | PDT | | results section. | + +--------+ + + + | CBC ONLY | Urgent | 03/13/2013 | | Results for this | | | | 1:33 PM | | procedure are in the | | | | PDT | | results section. | + +--------+ + + + | LACTATE (ART), POC | Routin | 03/13/2013 | Cholecystitis | Results for this | | ISTAT | e | 11:54 AM | | procedure are in the | | | | PDT | | results section. | + +--------+ + + + | HEMOGLOBIN-COOX, POC | Routin | 03/13/2013 | Cholecystitis | Results for this | | | e | 11:54 AM | | procedure are in the | | | | PDT | | results section. | + +--------+ + + + | SODIUM, POC | Routin | 03/13/2013 | Cholecystitis | Results for this | | | e | 11:54 AM | | procedure are in the | | | | PDT | | results section. | + +--------+ + + + | POTASSIUM, POC | Routin | 03/13/2013 | Cholecystitis | Results for this | | | e | 11:54 AM | | procedure are in the | | | | PDT | | results section. | + +--------+ + + + | GLUCOSE, POC | Routin | 03/13/2013 | Cholecystitis | Results for this | | | e | 11:54 AM | | procedure are in the | | | | PDT | | results section. | + +--------+ + + + | ARTERIAL BLOOD GAS, | Routin | 03/13/2013 | Cholecystitis | Results for this | | POC | e | 11:54 AM | | procedure are in the | | | | PDT | | results section. | + +--------+ + + + | CHLORIDE, POC | Routin | 03/13/2013 | Cholecystitis | Results for this | | | e | 11:54 AM | | procedure are in the | | | | PDT | | results section. | + +--------+ + + + | MATT IONIZED CA, POC | Routin | 03/13/2013 | Cholecystitis | Results for this | | | e | 11:54 AM | | procedure are in the | | | | PDT | | results section. | + +--------+ + + + | LAPAROSCOPIC | Electi | 03/13/2013 | Acute | | | CHOLECYSTECTOMY | ve | 8:24 AM | cholecystitis | | | W/GRAMS | Surgic | PDT | Ventral hernia | | | | al | | | | + +--------+ + + + +---+--------+ | | | | | Specia | | | l | | | Needs | | | 10A; | | | ferrym | | | Admit | | | Wednesday | | | 03/10 | +---+--------+ + +--------+ +---+ + | CAPILLARY BLOOD | Routin | 03/13/2013 | | Results for this | | GLUCOSE (NO CHG), | e | 6:22 AM | | procedure are in the | | POC | | PDT | | results section. | + +--------+ +---+ + | INR | Routin | 03/13/2013 | | Results for this | | | e | 6:14 AM | | procedure are in the | | | | PDT | | results section. | + +--------+ +---+ + | CAPILLARY BLOOD | Routin | 03/13/2013 | | Results for this | | GLUCOSE (NO CHG), | e | 1:11 AM | | procedure are in the | | POC | | PDT | | results section. | + +--------+ +---+ + | SURGICAL PATHOLOGY | Routin | 03/13/2013 | | Results for this | | | e | | | procedure are in the | | | | | | results section. | + +--------+ +---+ + | CAPILLARY BLOOD | Routin | 03/12/2013 | | Results for this | | GLUCOSE (NO CHG), | e | 8:57 PM | | procedure are in the | | POC | | PDT | | results section. | + +--------+ +---+ + | CAPILLARY BLOOD | Routin | 03/12/2013 | | Results for this | | GLUCOSE (NO CHG), | e | 1:01 PM | | procedure are in the | | POC | | PDT | | results section. | + +--------+ +---+ + | CAPILLARY BLOOD | Routin | 03/12/2013 | | Results for this | | GLUCOSE (NO CHG), | e | 8:26 AM | | procedure are in the | | POC | | PDT | | results section. | + +--------+ +---+ + | INR | Routin | 03/12/2013 | | Results for this | | | e | 6:47 AM | | procedure are in the | | | | PDT | | results section. | + +--------+ +---+ + | CAPILLARY BLOOD | Routin | 03/11/2013 | | Results for this | | GLUCOSE (NO CHG), | e | 11:55 PM | | procedure are in the | | POC | | PDT | | results section. | + +--------+ +---+ + | CAPILLARY BLOOD | Routin | 03/11/2013 | | Results for this | | GLUCOSE (NO CHG), | e | 7:13 PM | | procedure are in the | | POC | | PDT | | results section. | + +--------+ +---+ + | CAPILLARY BLOOD | Routin | 03/11/2013 | | Results for this | | GLUCOSE (NO CHG), | e | 3:18 PM | | procedure are in the | | POC | | PDT | | results section. | + +--------+ +---+ + | CAPILLARY BLOOD | Routin | 03/11/2013 | | Results for this | | GLUCOSE (NO CHG), | e | 9:59 AM | | procedure are in the | | POC | | PDT | | results section. | + +--------+ +---+ + | INR | Routin | 03/11/2013 | | Results for this | | | e | 7:21 AM | | procedure are in the | | | | PDT | | results section. | + +--------+ +---+ + | CAPILLARY BLOOD | Routin | 03/10/2013 | | Results for this | | GLUCOSE (NO CHG), | e | 9:47 PM | | procedure are in the | | POC | | PDT | | results section. | + +--------+ +---+ + | X-RAY CHEST 2 VIEW | Routin | 03/10/2013 | | Results for this | | | e | 6:50 PM | | procedure are in the | | | | PDT | | results section. | + +--------+ +---+ + | CBC (HEMOGRAM) ONLY | Routin | 03/10/2013 | | Results for this | | | e | 6:21 PM | | procedure are in the | | | | PDT | | results section. | + +--------+ +---+ + | INR | Routin | 03/10/2013 | | Results for this | | | e | 6:21 PM | | procedure are in the | | | | PDT | | results section. | + +--------+ +---+ + | COMPLETE METABOLIC | Routin | 03/10/2013 | | Results for this | | SET | e | 6:21 PM | | procedure are in the | | (NA,K,CL,CO2,BUN,CRE | | PDT | | results section. | | AT,GLUC,CA,AST,ALT,B | | | | | | AARON TOTAL,ALK | | | | | | PHOS,ALB,PROT TOTAL) | | | | | + +--------+ +---+ + | CBC ONLY | Routin | 03/10/2013 | | Results for this | | | e | 6:21 PM | | procedure are in the | | | | PDT | | results section. | + +--------+ +---+ + | APTT (ACT. PART. | Routin | 03/10/2013 | | Results for this | | THROMBO TIME) | e | 6:21 PM | | procedure are in the | | | | PDT | | results section. | + +--------+ +---+ + | ANTIBODY SCREEN | Routin | 03/10/2013 | | Results for this | | | e | 6:21 PM | | procedure are in the | | | | PDT | | results section. | + +--------+ +---+ + | TYPE AND SCREEN | Routin | 03/10/2013 | | Results for this | | | e | 6:21 PM | | procedure are in the | | | | PDT | | results section. | + +--------+ +---+ + | ABO & RH TYPE | Routin | 03/10/2013 | | Results for this | | | e | 6:21 PM | | procedure are in the | | | | PDT | | results section. | + +--------+ +---+ + | PHOSPHORUS, PLASMA | Routin | 03/10/2013 | | Results for this | | | e | 6:21 PM | | procedure are in the | | | | PDT | | results section. | + +--------+ +---+ + | LIPASE, PLASMA | Routin | 03/10/2013 | | Results for this | | | e | 6:21 PM | | procedure are in the | | | | PDT | | results section. | + +--------+ +---+ + | MAGNESIUM, PLASMA | Routin | 03/10/2013 | | Results for this | | | e | 6:21 PM | | procedure are in the | | | | PDT | | results section. | + +--------+ +---+ + | AMYLASE, PLASMA | Routin | 03/10/2013 | | Results for this | | | e | 6:21 PM | | procedure are in the | | | | PDT | | results section. | + +--------+ +---+ + | CAPILLARY BLOOD | Routin | 03/10/2013 | | Results for this | | GLUCOSE (NO CHG), | e | 6:04 PM | | procedure are in the | | POC | | PDT | | results section. | + +--------+ +---+ + | 12 LEAD ECG | Routin | 03/10/2013 | | Results for this | | | e | 5:56 PM | | procedure are in the | | | | PDT | | results section. | + +--------+ +---+ + | RADIOLOGY | | 03/10/2013 | | Results for this | | | | 12:00 AM | | procedure are in the | | | | PDT | | results section. | + +--------+ +---+ + documented in this encounter Results PROCEDURE NOTE (09/26/2015 9:55 PM PST) + + | Transcriptions | + + | Other, Faculty - 03/22/2013 10:03 AM PDT | + + CBC (HEMOGRAM) ONLY (03/19/2013 7:22 AM PDT) + + + + + + | Component | Value | Ref Range | Performed | Pathologist | | | | | At | Signature | + + + + + + | WHITE CELL | 8.34 | 4.40 - 11.00 | [facility] | [...] + + + + | HEMOGLOBIN | 12.1 (L) | 13.5 - 17.5 | [facility] | | | | | g/dL | LABORATORY | | | | | | SERVICES, | | | | | | CORE | | + + + + + + | HEMATOCRIT | 37.0 (L) | 41.0 - 53.0 % | [facility] | | | | | | LABORATORY | | | | | | SERVICES, | | | | | | CORE | | + + + + + + | MCV | 86.0 | 80.0 - 96.0 fL | [facility] | | | | | | LABORATORY | | | | | | SERVICES, | | | | | | CORE | | + + + + + + | MCHC | 32.7 (L) | 33.0 - 35.5 | [facility] | | | | | g/dL | LABORATORY | | | | | | SERVICES, | | | | | | CORE | | + + + + + + | RDW SD | 43.0 | 35.1 - 46.3 fL | [facility] | | | | | | LABORATORY | | | | | | SERVICES, | | | | | | CORE | | + + + + + + | PLATELET | 258 | 150 - 400 K/cu | [facility] [...] At | + + + | New methodology and reference ranges for some CBC/Differential | [facility] | | analytes in effect on 03/10/13. | LABORATORY | | | SERVICES, CORE | + + + + + + + + | Performing | Address | City/State/Zipcode | Phone Number | | Organization | | | | + + + + + | [facility] | [address] | [place] [address] | | | SERVICES, CORE | [address] | | | + + + + + MAGNESIUM, PLASMA (03/19/2013 7:22 AM PDT) + +-------+ + + + | Component | Value | Ref Range | Performed | Pathologist | | | | | At | Signature | + +-------+ + + + | MAGNESIUM,P | 2.5 | 1.8 - 2.5 mg/dL | [facility] | | | [facility] | | | [...] | + + + + + | [facility] | [address] | [place] [address] | | | SERVICES, CORE | [address] | | | + + + + + RENAL FUNCTION SET (NA,K,CL,CO2,BUN,CREAT,GLUC,CA,PHOS,ALB ) (03/19/2013 7:22 AM PDT) + +---------+ + + + | Component | Value | Ref Range | Performed | Pathologist | | | | | At | Signature | + +---------+ + + + | GLUCOSE, | 131 (H) | 60 - 99 mg/dL | [facility] | | | PLASMA | | | LABORATORY | | | (LAB) | | | SERVICES, | | | | | | CORE | | + +---------+ + + + | BUN, PLASMA | 10 | 6 - 20 mg/dL | [facility] [...] | | | LABORATORY | | | [facility] | | | SERVICES, | | | [...] +---------+ + + + | CHLORIDE, | 99 | 97 - 108 mmol/L | [facility] | | | PLASMA | | | LABORATORY | | | (LAB) | | | SERVICES, | | | | | | CORE | | + +---------+ + + + | TOTAL CO2, | 29 | 21 - 32 mmol/L | [facility] | | | PLASMA | | | LABORATORY | | | (LAB) | | | SERVICES, | | | | | | CORE | | + +---------+ + + + | CALCIUM, | 9.0 | 8.6 - 10.2 | [facility] | | | PLASMA | | mg/dL | LABORATORY | | | (LAB) | | | SERVICES, | | | | | | CORE | | + +---------+ + + + | ALBUMIN, | 2.9 (L) | 3.5 - 4.7 g/dL | [facility] | | | PLASMA | | | LABORATORY | | | (LAB) | | | SERVICES, | | | | | | CORE | | + +---------+ + + + | PHOSPHORUS, | 3.5 [...] + + + | ANION GAP | 9 | mmol/L | [facility] | | | | | | LABORATORY | | | | | | SERVICES, | | | | | | CORE | | + +---------+ + + + | ANION | 11 [...] | + + + + + | [facility] | [address] | [place] [address] | | | SERVICES, CORE | [address] | | | + + + + + INR (03/19/2013 7:22 AM PDT) + + + + + + | Component | Value | Ref Range | Performed | Pathologist | | | | | At | Signature | + + + + + + | INR | 2.39 (H) | 0.90 - 1.20 INR | [...] mech. valves (2.5 - 3.5) INR | PEARL, CORE | + + + + + + + + | Performing | Address | City/State/Zipcode | Phone Number | | Organization | | | | + + + + + | [facility] | [address] | [place] [address] | | | SERVICES, NAY | [address] | | | + + + + + CAPILLARY BLOOD GLUCOSE (NO CHG), POC (03/18/2013 9:07 PM PDT) + +---------+ + + + | Component | Value | Ref Range | Performed | Pathologist | | | | | At | Signature | + +---------+ + + + | BLOOD | 144 (H) | 60 - 99 mg/dL | [...] | [facility] | [address] | [place], [place] | | | [employer] | [facility] | [address] | | | TESTS | | | | + + + + + CAPILLARY BLOOD GLUCOSE (NO CHG), POC (03/18/2013 12:10 PM PDT) + +---------+ + + + | Component | Value | Ref Range | Performed | Pathologist | | | | | At | Signature | + +---------+ + + + | BLOOD | 148 (H) | 60 - 99 mg/dL | [...] | [facility] | [address] | [place], [place] | | | [employer] | [address] | [address] | | | TESTS | | | | + + + + + CBC (HEMOGRAM) ONLY (03/18/2013 7:01 AM PDT) + + + + + + | Component | Value | Ref Range | Performed | Pathologist | | | | | At | Signature | + + + + + + | WHITE CELL | 7.38 | 4.40 - 11.00 | [facility] | | | COUNT | | K/cu mm | LABORATORY | | | | | | SERVICES, | | | | | | CORE | | + + + + + + | RED CELL | 4.75 | 4.50 - 6.00 | [facility] | | | COUNT | | M/cu mm | LABORATORY | | | | | | SERVICES, | | | | | | CORE | | + + + + + + | HEMOGLOBIN | 13.4 (L) | 13.5 - 17.5 | [facility] | | | | | g/dL | LABORATORY | | | | | | SERVICES, | | | | | | CORE | | + + + + + + | HEMATOCRIT | 40.9 (L) | 41.0 - 53.0 % | [facility] | | | | | | LABORATORY | | | | | | SERVICES, | | | | | | CORE | | + + + + + + | MCV | 86.1 | 80.0 - 96.0 fL | [facility] | | | | | | LABORATORY | | | | | | SERVICES, | | | | | | CORE | | + + + + + + | MCHC | 32.8 (L) | 33.0 - 35.5 | [facility] | | | | | g/dL | LABORATORY | | | | | | SERVICES, | | | | | | CORE | | + + + + + + | RDW SD | 43.5 | 35.1 - 46.3 fL | [facility] | | | | | | LABORATORY | | | | | | SERVICES, | | | | | | CORE | | + + + + + + | PLATELET | 281 | 150 - 400 K/cu | [facility] [...] At | + + + | New methodology and reference ranges for some CBC/Differential | [facility] | | analytes in effect on 03/10/13. | LABORATORY | | | NAY KANG | + + + + + + + + | Performing | Address | City/State/Zipcode | Phone Number | | Organization | | | | + + + + + | [facility] | [address] | [place] [address] | | | NAY KANG | [address] | | | + + + + + MAGNESIUM, PLASMA (03/18/2013 7:01 AM PDT) + +-------+ + + + | Component | Value | Ref Range | Performed | Pathologist | | | | | At | Signature | + +-------+ + + + | MAGNESIUM,P | 2.0 | 1.8 - 2.5 mg/dL | [facility] | | | LASMA [...] + | [facility] | [address] | [place] [address] | | | SERVICES, CORE | [address] | | | + + + + + RENAL FUNCTION SET (NA,K,CL,CO2,BUN,CREAT,GLUC,CA,PHOS,ALB ) (03/18/2013 7:01 AM PDT) + +---------+ + + + | Component | Value | Ref Range | Performed | Pathologist | | | | | At | Signature | + +---------+ + + + | GLUCOSE, | 156 (H) | 60 - 99 [...] +---------+ + + + | CREATININE | 0.78 | 0.70 - 1.30 | [facility] | | | PLASMA | | mg/dL | LABORATORY | | | (LAB) | | | SERVICES, | | | | | | CORE | | + +---------+ + + + | EGFR | >60 | >60 mL/min | [facility] | | | - | | | LABORATORY | | | [facility] | | | SERVICES, | | | [...] +---------+ + + + | CHLORIDE, | 101 [...] +---------+ + + + | CALCIUM, | 9.2 | 8.6 - 10.2 | [facility] | | | PLASMA | | mg/dL | LABORATORY | | | (LAB) | | | SERVICES, | | | | | | CORE | | + +---------+ + + + | ALBUMIN, | 3.3 (L) | 3.5 - 4.7 g/dL | [facility] | | | PLASMA | | | LABORATORY | | | (LAB) | | | SERVICES, | | | | | | CORE | | + +---------+ + + + | PHOSPHORUS, | 4.0 | 2.4 - 4.7 mg/dL | [facility] [...] + + + | ANION GAP | 12 | mmol/L | [facility] | | | | | | LABORATORY | | | | | | SERVICES, | | | | | | CORE | | + +---------+ + + + | ANION | 13 (H) | 4 - 11 mmol/L | [...] | + + + + + | [facility] | [address] | [place] [address] | | | SERVICES, CORE | [address] | | | + + + + + INR (03/18/2013 7:01 AM PDT) + + + + + + | Component | Value | Ref Range | Performed | Pathologist | | | | | At | Signature | + + + + + + | INR | 2.01 (H) | 0.90 - 1.20 INR | [...] | + + + + + | [facility] | [address] | [place] [address] | | | SERVICES, CORE | [address] | | | + + + + + CAPILLARY BLOOD GLUCOSE (NO CHG), POC (03/17/2013 10:38 PM PDT) + +---------+ + + + | Component | Value | Ref Range | Performed | Pathologist | | | | | At | Signature | + +---------+ + + + | BLOOD | 194 (H) | 60 - 99 mg/dL | [...] + | [facility] | [address] | [place], [place] | | | [employer] | [address] | [address] | | | TESTS | | | | + + + + + CAPILLARY BLOOD GLUCOSE (NO CHG), POC (03/17/2013 5:21 PM PDT) + +---------+ + + + [...] | [facility] | [address] | [place], [place] | | | [facility] | [facility] | [address] | | | TESTS | | | | + + + + + X-RAY ABDOMEN 1 VIEW (03/17/2013 4:51 PM PDT) + + + + + + | Component | Value | Ref Range | Performed | Pathologist | | | | | At | Signature | + + + + + + | ABDOMEN, 1 | STUDY: ABDOMEN 1 VIEW | | | | | VIEW (JOSUÉ) | 03/17/13 16:51:00 | | | | | | HISTORY: Abdominal pain | | | | | | postoperative. | | | | | | COMPARISON: 08/11/12. | | | | | | FINDINGS: Postoperative | | | | | | changes from | | | | | | intra-abdominal surgery | | | | | | are | | | | | | present. Surgicalstap | | | | | | les project over the mid | | | | | | abdomen and | | | | | | spine. Bowel loops | | | | | | are nondilated.Enteric | | | | | | contrast presumably | | | | | | relates to proceeding | | | | | | cholangiography. Ther | | | | | | e is noportal venous | | | | | | gas. A left total hip | | | | | | arthroplasty is present | | | | | | which | | | | | | appearsunchanged. Lizzy | | | | | | nges from ankylosing | | | | | | spondylitis are seen in | | | | | | the spine, pelvisand | | | | | | right hip. No acute | | | | | | osseous abnormality. | | | | | | IMPRESSION: | | | | | | Postoperative changes, | | | | | | without acute | | | | | | abnormality. 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 Attending | | | | | | Radiologists: ESTUARDO | | | | | | JONY BRADFORDuthor: | | | | | | DL COKER MD I have | | | | | | personally viewed this | | | | | | procedure/exam, reviewed | | | | | | this report, and | | | | | | madechanges to it where | | | | | | appropriate. | | | | | | Final/Electronically | | | | | | signed / ESTUARDO | | | | | | SUZETTE 03/18/2013 11:44 | | | | | | AM [...] + CAPILLARY BLOOD GLUCOSE (NO CHG), POC (03/17/2013 11:43 AM PDT) + +---------+ + + + | Component | Value | Ref Range | Performed | Pathologist | | | | | At | Signature | + +---------+ + + + | BLOOD | 148 (H) | 60 - 99 mg/dL | [...] | [facility] | [address] | [place], [place] | | | [employer] | [facility] | [address] | | | TESTS | | | | + + + + + CBC (HEMOGRAM) ONLY (03/17/2013 6:59 AM PDT) + + + + + + | Component | Value | Ref Range | Performed | Pathologist | | | | | At | Signature | + + + + + + | WHITE CELL | 5.65 | 4.40 - 11.00 | [facility] | | | COUNT | | K/cu mm | LABORATORY | | | | | | SERVICES, | | | | | | CORE | | + + + + + + | RED CELL | 4.52 | 4.50 - 6.00 | [facility] | [...] + + + + | HEMATOCRIT | 39.8 (L) | 41.0 - 53.0 % | [facility] | | | | | | LABORATORY | | | | | | SERVICES, | | | | | | CORE | | + + + + + + | MCV | 88.1 | 80.0 - 96.0 fL | [facility] | | | | | | LABORATORY | | | | | | SERVICES, | | | | | | CORE | | + + + + + + | MCHC | 32.9 (L) | 33.0 - 35.5 | [facility] | | | | | g/dL | LABORATORY | | | | | | SERVICES, | | | | | | CORE | | + + + + + + | RDW SD | 44.0 | 35.1 - 46.3 fL | [facility] | | | | | | LABORATORY | | | | | | SERVICES, | | | | | | CORE | | + + + + + + | PLATELET | 251 | 150 - 400 K/cu | [facility] | | | COUNT | | mm | LABORATORY | | | | | | SERVICES, | | | | | | CORE | | + + + + + + | MPV | 9.3 (L) | 9.7 - 12.3 fL | [...] At | + + + | New methodology and reference ranges for some CBC/Differential | [facility] | | analytes in effect on 03/10/13. | LABORATORY | | | SERVICES, CORE | + + + + + + + + | Performing | Address | City/State/Zipcode | Phone Number | | Organization | | | | + + + + + | [facility] | [address] | [place] [address] | | | SERVICES, CORE | [address] | | | + + + + + MAGNESIUM, PLASMA (03/17/2013 6:59 AM PDT) + +-------+ + + + | Component | Value | Ref Range | Performed | Pathologist | | | | | At | Signature | + +-------+ + + + | MAGNESIUM,P | 2.0 | 1.8 - 2.5 mg/dL | [facility] | | | [facility] | | | [...] + + | [facility] | [address] | [place] [address] | | | SERVICES, CORE | [address] | | | + + + + + RENAL FUNCTION SET (NA,K,CL,CO2,BUN,CREAT,GLUC,CA,PHOS,ALB ) (03/17/2013 6:59 AM PDT) + + + + + + | Component | Value | Ref Range | Performed | Pathologist | | | | | At | Signature | + + + + + + | GLUCOSE, | 138 (H) | 60 - 99 mg/dL | [facility] | | | PLASMA | | | LABORATORY | | | (LAB) | | | SERVICES, | | | | | | CORE | | + + + + + + | BUN, PLASMA | 6 | 6 - 20 mg/dL | [facility] [...] | | | LABORATORY | | | [place] | | | SERVICES, | | | | | | CORE | | + + + + + + | EGFR NON | >60 | >60 mL/min | [facility] | | | -SARAH | | | LABORATORY | | | RICAN | | | SERVICES, | | | | | | CORE | | + + + + + + | SODIUM, | 133 (L) | 136 - 145 | [facility] [...] + + + + | CHLORIDE, | 100 [...] + + + + | PHOSPHORUS, | 2.6 | 2.4 - 4.7 mg/dL | [facility] | | | PLASMA | | | LABORATORY | | | (LAB) | | | SERVICES, | | | | | | CORE | | + + + + + + | POTASSIUM | | | [facility] | | | CMNT | | | LABORATORY | | | | | | SERVICES, | | | | | | CORE | | + + + + + + | ANION GAP | 5 | mmol/L | [facility] | | | | | | LABORATORY | | | | | | SERVICES, | | | | | | CORE | | + + + + + + | ANION | 7 [...] + | [facility] | [address] | [place] [address] | | | SERVICES, CORE | [address] | | | + + + + + INR (03/17/2013 6:59 AM PDT) + + + + + [...] + | [facility] | [address] | [place] [address] | | | SERVICES, NAY | [address] | | | + + + + + CAPILLARY BLOOD GLUCOSE (NO CHG), POC (03/17/2013 12:22 AM PDT) + +---------+ + + + | Component | Value | Ref Range | Performed | Pathologist | | | | | At | Signature | + +---------+ + + + | BLOOD | 139 (H) | 60 - 99 mg/dL | [...] [facility] | [address] | [place], [place] | | | [employer] | [address] | [address] | | | TESTS | | | | + + + + + CAPILLARY BLOOD GLUCOSE (NO CHG), POC (03/16/2013 8:52 PM PDT) + +---------+ + + + | Component | Value | Ref Range | Performed | Pathologist | | | | | At | Signature | + +---------+ + + + | BLOOD | 125 (H) | 60 - 99 mg/dL | [facility] | | | GLUCOSE, | | [...] + + + | [facility] | [address] | [place], [place] | | | [employer] | [address] | [address] | | | TESTS | | | | + + + + + CAPILLARY BLOOD GLUCOSE (NO CHG), POC (03/16/2013 9:32 AM PDT) + +---------+ + + + | Component | Value | Ref Range | Performed | Pathologist | | | | | At | Signature | + +---------+ + + + | BLOOD | 170 (H) | 60 - 99 mg/dL | [...] [facility] | [address] | [place], [place] | | | [facility] | [address] | [address] | | | TESTS | | | | + + + + + CBC (HEMOGRAM) ONLY (03/16/2013 6:19 AM PDT) + + + + + + | Component | Value | Ref Range | Performed | Pathologist | | | | | At | Signature | + + + + + + | WHITE CELL | 6.12 | 4.40 - 11.00 | [facility] | | | COUNT | | K/cu mm | LABORATORY | | | | | | SERVICES, | | | | | | CORE | | + + + + + + | RED CELL | 4.01 (L) | 4.50 - 6.00 | [facility] | | | COUNT | | M/cu mm | LABORATORY | | | | | | SERVICES, | | | | | | CORE | | + + + + + + | HEMOGLOBIN | 11.5 (L) | 13.5 - 17.5 | [facility] | | | | | g/dL | LABORATORY | | | | | | SERVICES, | | | | | | CORE | | + + + + + + | HEMATOCRIT | 34.4 (L) | 41.0 - 53.0 % | [facility] | | | | | | LABORATORY | | | | | | SERVICES, | | | | | | CORE | | + + + + + + | MCV | 85.8 | 80.0 - 96.0 fL | [facility] | | | | | | LABORATORY | | | | | | SERVICES, | | | | | | CORE | | + + + + + + | MCHC | 33.4 | 33.0 - 35.5 | [facility] | | | | | g/dL | LABORATORY | | | | | | SERVICES, | | | | | | CORE | | + + + + + + | RDW SD | 42.1 | 35.1 - 46.3 fL | [facility] | | | | | | LABORATORY | | | | | | SERVICES, | | | | | | CORE | | + + + + + + | PLATELET | 207 | 150 - 400 K/cu | [facility] [...] At | + + + | New methodology and reference ranges for some CBC/Differential | [facility] | | analytes in effect on 03/10/13. | LABORATORY | | | SERVICES, CORE | + + + + + + + + | Performing | Address | City/State/Zipcode | Phone Number | | Organization | | | | + + + + + | [facility] | [address] | [place] [address] | | | PEARL, CORE | [address] | | | + + + + + MAGNESIUM, PLASMA (03/16/2013 6:19 AM PDT) + +-------+ + + + | Component | Value | Ref Range | Performed | Pathologist | | | | | At | Signature | + +-------+ + + + | MAGNESIUM,P | 2.0 | 1.8 - 2.5 mg/dL | [facility] | | | LASMA | | | [...] | + + + + + | [facility] | [address] | [place] [address] | | | SERVICES, CORE | [address] | | | + + + + + RENAL FUNCTION SET (NA,K,CL,CO2,BUN,CREAT,GLUC,CA,PHOS,ALB ) (03/16/2013 6:19 AM PDT) + + + + + + | Component | Value | Ref Range | Performed | Pathologist | | | | | At | Signature | + + + + + + | GLUCOSE, | 131 (H) | 60 - 99 mg/dL | [facility] | | | PLASMA | | | LABORATORY | | | (LAB) | | | SERVICES, | | | | | | CORE | | + + + + + + | BUN, PLASMA | 3 (L) | 6 - 20 mg/dL | [facility] | | | (LAB) | | | LABORATORY | | | | | | SERVICES, | | | | | | CORE | | + + + + + + | CREATININE | 0.64 (L) | 0.70 - 1.30 | [facility] | | | PLASMA | | mg/dL | LABORATORY | | | (LAB) | | | SERVICES, | | | | | | CORE | | + + + + + + | EGFR | >60 | >60 mL/min | [facility] | | | - | | | LABORATORY | | | [facility] | | | SERVICES, | | | [...] + + + + | PHOSPHORUS, | 2.8 | 2.4 - 4.7 mg/dL | [facility] [...] | + + + + + | [facility] | [address] | [place] [address] | | | SERVICES, CORE | [address] | | | + + + + + INR (03/16/2013 6:19 AM PDT) + + + + + + | Component | Value | Ref Range | Performed | Pathologist | | | | | At | Signature | + + + + + + | INR | 1.41 (H) | 0.90 - 1.20 INR | [facility] | | | | | | LABORATORY [...] | + + + + + | [facility] | [address] | [place] [address] | | | SERVICES, CORE | [address] | | | + + + + + CAPILLARY BLOOD GLUCOSE (NO CHG), POC (03/16/2013 6:02 AM PDT) + +---------+ + + + | Component | Value | Ref Range | Performed | Pathologist | | | | | At | Signature | + +---------+ + + + | BLOOD | 159 (H) | 60 - 99 mg/dL | [...] | [facility] | [address] | [place], [place] | | | [facility]INT OF CARE | [address] | [address] | | | TESTS | | | | + + + + + CAPILLARY BLOOD GLUCOSE (NO CHG), POC (03/15/2013 10:42 PM PDT) + +---------+ + + + | Component | Value | Ref Range | Performed | Pathologist | | | | | At | Signature | + +---------+ + + + | BLOOD | 210 (H) | 60 - 99 mg/dL | [...] + + + | [facility] | [address] | [place], [place] | | | [facility] POINT OF CARE | [address] | [address] | | | TESTS | | | | + + + + + CAPILLARY BLOOD GLUCOSE (NO CHG), POC (03/15/2013 10:04 PM PDT) + +---------+ + + + | Component | Value | Ref Range | Performed | Pathologist | | | | | At | Signature | + +---------+ + + + | BLOOD | 202 (H) | 60 - 99 mg/dL | [...] [facility] | [address] | [place], [place] | | | [facility] CARE | [address] | [address] | | | TESTS | | | | + + + + + CAPILLARY BLOOD GLUCOSE (NO CHG), POC (03/15/2013 6:03 PM PDT) + +---------+ + + + | Component | Value | Ref Range | Performed | Pathologist | | | | | At | Signature | + +---------+ + + + | BLOOD | 178 (H) | 60 - 99 mg/dL | [...] | [facility] | [address] | [place], [place] | | | [facility] POINT OF CARE | [address] | [address] | | | TESTS | | | | + + + + + CAPILLARY BLOOD GLUCOSE (NO CHG), POC (03/15/2013 1:59 PM PDT) + +---------+ + + + | Component | Value | Ref Range | Performed | Pathologist | | | | | At | Signature | + +---------+ + + + | BLOOD | 170 (H) | 60 - 99 mg/dL | [...] + + + | [facility] | [address] | [place], [place] | | | [facility] POINT OF CARE | [address] | [address] | | | TESTS | | | | + + + + + HEPARIN, EITHER STANDARD / LMW, BLOOD (03/15/2013 1:44 PM PDT) + +-------+ + + + | Component | Value | Ref Range | Performed | Pathologist | | | | | At | Signature | + +-------+ + + + | HEPARIN, | 0.87 | U/mL | [facility] | | | STD LMW | | | LABORATORY | | | | | | SERVICES, | | | | | | CORE | | + +-------+ + + + + + | Specimen | + + | Blood - Blood | + + + + + | Narrative | Performed At | + + + | Heparin, Either STD/LMW - Therapeutic Ranges: Heparin, | [facility] | | Unfractionated: 0.35 - 0.70 U/mL Enoxaparin, LMWH: | LABORATORY | | 0.70 - 1.20 U/mL Dalteparin, LMWH: 0.70 - 1.20 U/mL | [facility], CORE | | Tinzaparin, LMWH: Therapeutic range not established. | | | Preliminary | | | studies suggest range | | | similar to | | | dalteparin. Clinical | | | correlation | | | required. Heparin levels may be unreliable for: | | | Total bilirubin | | | >28.8 mg/dL | | | Triglycerides | | | >690 mg/dL or | | | Moderate to Gross Hemolysis | | + + + + + + + + | Performing | Address | City/State/Zipcode | Phone Number | | Organization | | | | + + + + + | [facility] | [address] | [place] [address] | | | [place] | [address] | | | + + + + + OPERATION RECORD (03/15/2013 1:17 PM PDT) + + | Transcriptions | + + | Devin Gonzalez MD - 03/13/2013 2:30 PM PDT Date: 03/13/2013 | | | | Attending Surgeon: Steffen Rodríguez M.D. | | | | Tension Machine Operator(s): Devin Gonzalez MD | | Ricky Alexander MD | | | | Preoperative Diagnosis(es): | | 1. History of acute cholecystitis. | | 2. Ventral hernia (asymptomatic). | | | | | | Postoperative Diagnosis(es): | | 1. History of acute cholecystitis. | | 2. Gallstones | | 3. Ventral hernia (asymptomatic). | | | | | | Procedures Performed: | | 1. Exploratory laparoscopy. | | 2. Open cholecystectomy. | | 3. Intraoperative cholangiogram with intraoperative interpretation of images. | | | | | | Anesthesia: | | GETA. | | | | Estimated blood loss: | | 300. | | | | Fluids: | | 3000 mL of crystalloid. | | | | Urine output: | | 550 mL. | | | | Drains: | | None. | | | | Specimen: | | Gallbladder and gallstones. | | | | Complications: | | None apparent. | | | | Findings: | | The patient's history of ankylosing spondylitis made laparoscopy difficult. | | He did not have much room in his abdominal cavity for laparoscopy. His | | ventral hernia had omental adhesions. Attempts at laparoscopic | | cholecystectomy were unsuccessful. We then converted to open | | cholecystectomy early in the case. His gallbladder was distended with | | bile. He had multiple small black stones. Intraoperative cholangiogram | | showed that his cystic duct was extremely long, small, and spiraled. | | Initially, he had a filling duct of his distal common bile duct. 1 mg of | | glucagon IV was given, and the stone was flushed with normal saline. | | Completion cholangiogram showed no filling defects of his intra- or | | extrahepatic ducts. | | | | Disposition: | | The patient was extubated, transferred to the recovery room, in stable | | condition. | | | | Procedure: | | This is a 62-year-old male, with a history of ankylosing spondylitis, | | antiphospholipid antibody syndrome, who was anticoagulated with Coumadin, | | whom we had met in clinic for the first time 3 days prior. He was recently | | discharged from another hospital after a bout of acute cholecystitis managed | | Nonoperatively. He was told to follow up in [facility] clinic for further care. | | He was admitted preoperatively over the weekend for management of his INR. | | Vitamin K was given over the weekend, Coumadin held, and therapeutic Lovenox | | started. Prior to surgery his INR was 1.2. A PARQ session was held and the | | patient consented to surgery. | | | | The patient was taken to [facility] OR number 6 and placed in the supine position. | | General anesthesia was administered and the patient was intubated by the | | anesthesiologist. The patient's arms were not tucked. The patient's | | abdomen was prepped and draped in usual sterile fashion. A safety pause | | was performed, reviewing the patient's identification, intended procedure, | | review of preoperative labs and imaging, as well as necessary equipment in | | the room. He received preoperative Ancef antibiotics. After the safety | | pause was done, the rest of the procedure was allowed to continue. | | | | The patient's upper epigastrium was infiltrated with local anesthetic prior | | to making the 12 mm incision with the 11 blade scalpel. Dissection was | | taken down with both blunt dissection and electrocautery. Once we were in | | the falciform ligament, we then stayed to the right of the falciform | | ligament and the abdomen was entered bluntly with a finger. After confirming | | that we were in the abdomen, stay sutures were placed on each | | side of the fascia, and a Richard trocar was inserted. The patient's | | abdomen was then insufflated with carbon dioxide. After achieving | | appropriate pneumoperitoneum, the 10 mm laparoscope was then inserted. | | Quick inspection showed that there were no entry injuries. There were many | | dense adhesions in the midline and in the vicinity of the ventral hernia that | | was off the midline. Attempts at raising the head of bed and rotating him | | towards the left were unsuccessful at helping move the omentum out of the | | way. We then placed a 5 mm trocar under direct vision in the right lateral | | subcostal margin. We were unable to sweep omentum out of the way of the | | gallbladder. The decision was then made to quickly convert to open operation. | | | | With the abdomen still inflated, we then extended our incision | | from the right lateral trocar site to the right subcostal margin for | | approximately 6 inches. This incision was taken down using electrocautery. | | Once we had entered the abdomen, the trocars were removed and the | | laparoscopic equipment was passed off the table. The Bookwalter retractor | | was set up. We were able to identify the gallbladder, which appeared quite | | distended with bile. Using electrocautery, we dissected the gallbladder fundus | | from off the liver wall. We made sure to stay close to the gallbladder wall | | and to avoid entry into the liver parenchyma. Eventually, the gallbladder | | required decompression. We suctioned bile from the gallbladder, and | | gallstones spilled from the gallbladder sac. We were careful to retrieve | | multiple small black gallstones. Once we had found the cystic duct, | | we then placed a cholangiogram catheter through the duct and secured | | it with a couple firings of the stapler. Attempts at flushing the cystic duct caused | | filling of the gallbladder itself. This required a couple of sutures | | around the gallbladder as well as a clamp to prevent the saline from | | refluxing back into the gallbladder. After we had good control of the | | cystic duct, we then proceeded with the cholangiogram. | | | | The contrast was diluted one-to-one with normal saline. Attempts at flushing | | the cystic duct showed that the flush went smoothly. While using fluoroscopy, | | we performed the intraoperative cholangiogram. There appeared to be a small | | filling defect of the distal common bile duct. Both intra- and extrahepatic ducts | | were patent and quite large. The cystic duct itself appeared quite small and | | spiraled. We then gave 1 mg of Glucagon intravenously. After waiting | | 4 minutes, the biliary system was flushed with saline. The completion | | cholangiogram showed no filling defects, and the contrast easily filled the duodenum. | | | | The cholangiogram catheter was then removed, and the gallbladder was | | ligated with scissors. The cystic duct was clipped with multiple conrado. | | The cystic duct was also suture ligated proximally. We then irrigated the | | abdomen well. There appeared to be good hemostasis and no bile leak. | | | | We then turned our attention to the ventral hernia. There appeared to be | | multiple dense adhesions of omentum in the hernia sac itself. Since the | | patient was asymptomatic, we decided to leave the hernia sac alone for fear | | of causing additional bleeding in the patient, who will be fully | | anticoagulated. We then removed the Bookwalter retractor. All sponges | | were removed. The fascia of the right subcostal margin was closed with | | running 1 Maxon looped suture. The fascia of the trocar site was closed | | using the previously placed stay sutures. The wounds were copiously | | irrigated. A total of 20 mL of local anesthetic was injected into the | | incision site. The skin was closed with conrado and dressed with a | | Covaderm dressing. The patient tolerated the procedure well. Instrument, | | sharp, sponge counts were correct x2 at the end of the procedure. | | | | The attending, Dr. Steffen Rodríguez, was present for the entire procedure. | | | | | | Devin Gonzalez MD | | | | | | Steffen Rodríguez M.D. | | | | PD / HS | | [id number] / [id number] / [id number] / | | | | | + + CAPILLARY BLOOD GLUCOSE (NO CHG), POC (03/15/2013 9:25 AM PDT) + +---------+ + + + [...] [facility] | [address] | [place], [place] | | | [place] [facility] | [address] | [address] | | | TESTS | | | | + + + + + CBC (HEMOGRAM) ONLY (03/15/2013 5:56 AM PDT) + + + + + + | Component | Value | Ref Range | Performed | Pathologist | | | | | At | Signature | + + + + + + | WHITE CELL | 8.57 | 4.40 - 11.00 | [facility] | | | COUNT | | K/cu mm | LABORATORY | | | | | | SERVICES, | | | | | | CORE | | + + + + + + | RED CELL | 4.12 (L) | 4.50 - 6.00 | [facility] [...] + + + + | HEMATOCRIT | 36.4 (L) | 41.0 - 53.0 % | [facility] | | | | | | LABORATORY | | | | | | SERVICES, | | | | | | CORE | | + + + + + + | MCV | 88.3 | 80.0 - 96.0 fL | [facility] | | | | | | LABORATORY | | | | | | SERVICES, | | | | | | CORE | | + + + + + + | MCHC | 33.0 | 33.0 - 35.5 | [facility] | | | | | g/dL | LABORATORY | | | | | | SERVICES, | | | | | | CORE | | + + + + + + | RDW SD | 43.4 | 35.1 - 46.3 fL | [facility] | | | | | | LABORATORY | | | | | | SERVICES, | | | | | | CORE | | + + + + + + | PLATELET | 198 | 150 - 400 K/cu | [facility] | | | COUNT | | mm | LABORATORY | | | | | | SERVICES, | | | | | | CORE | | + + + + + + | MPV | 9.3 (L) | 9.7 - 12.3 fL | [...] At | + + + | New methodology and reference ranges for some CBC/Differential | [facility] | | analytes in effect on 03/10/13. | LABORATORY | | | SERVICES, CORE | + + + + + + + + | Performing | Address | City/State/Zipcode | Phone Number | | Organization | | | | + + + + + | [facility] | [address] | [place] [address] | | | SERVICES, CORE | [address] | | | + + + + + MAGNESIUM, PLASMA (03/15/2013 5:56 AM PDT) + +-------+ + + + | Component | Value | Ref Range | Performed | Pathologist | | | | | At | Signature | + +-------+ + + + | MAGNESIUM,P | 2.0 | 1.8 - 2.5 mg/dL | [facility] | | | LASMA | | | [...] + | [facility] | [address] | [place] [address] | | | SERVICES, CORE | [address] | | | + + + + + RENAL FUNCTION SET (NA,K,CL,CO2,BUN,CREAT,GLUC,CA,PHOS,ALB ) (03/15/2013 5:56 AM PDT) + +---------+ + + + | Component | Value | Ref Range | Performed | Pathologist | | | | | At | Signature | + +---------+ + + + | GLUCOSE, | 161 (H) | 60 - 99 mg/dL | [facility] | | | PLASMA | | | LABORATORY | | | (LAB) | | | SERVICES, | | | | | | CORE | | + +---------+ + + + | BUN, PLASMA | 6 | 6 - 20 mg/dL | [facility] | | | (LAB) | | | LABORATORY | | | | | | SERVICES, | | | | | | CORE | | + +---------+ + + + | CREATININE | 0.75 | 0.70 - 1.30 | [facility] | | | PLASMA | | mg/dL | LABORATORY | | | (LAB) | | | SERVICES, | | | | | | CORE | | + +---------+ + + + | EGFR | >60 | >60 mL/min | [facility] | | | - | | | LABORATORY | | | B[facility]DI[place] | | | SERVICES, | | | | | | CORE | | + +---------+ + + + | EGFR NON | >60 | >60 mL/min | [facility] | | | -SARAH | | | LABORATORY | | | RICAN | | | SERVICES, | | | | | | CORE | | + +---------+ + + + | SODIUM, | 134 (L) | 136 - 145 | [facility] | | | PLASMA | | mmol/L | LABORATORY | | | (LAB) | | | SERVICES, | | | | | | CORE | | + +---------+ + + + | POTASSIUM, | 3.9 | 3.4 - 5.0 | [facility] | | | PLASMA | | mmol/L | LABORATORY | | | (LAB) | | | SERVICES, | | | | | | CORE | | + +---------+ + + + | CHLORIDE, | 99 | 97 - 108 mmol/L | [facility] [...] +---------+ + + + | CALCIUM, | 8.4 (L) | 8.6 - 10.2 | [facility] | | | PLASMA | | mg/dL | LABORATORY | | | (LAB) | | | SERVICES, | | | | | | CORE | | + +---------+ + + + | ALBUMIN, | 2.9 (L) | 3.5 - 4.7 g/dL | [facility] | | | PLASMA | | | LABORATORY | | | (LAB) | | | SERVICES, | | | | | | CORE | | + +---------+ + + + | PHOSPHORUS, | 2.0 [...] + | [facility] | [address] | [place] [address] | | | SERVICES, CORE | [address] | | | + + + + + INR (03/15/2013 5:56 AM PDT) + + + + + + | Component | Value | Ref Range | Performed | Pathologist | | | | | At | Signature | + + + + + + | INR | 1.38 (H) | 0.90 - 1.20 INR | [...] | + + + + + | [facility] | [address] | [place] [address] | | | SERVICES, CORE | [address] | | | + + + + + CAPILLARY BLOOD GLUCOSE (NO CHG), POC (03/14/2013 10:17 PM PDT) + +---------+ + + + | Component | Value | Ref Range | Performed | Pathologist | | | | | At | Signature | + +---------+ + + + | BLOOD | 207 (H) | 60 - 99 mg/dL | [facility] - | | | GLUCOSE, | [...] | [facility] | [address] | [place], [place] | | | [facility] | [address] | [address] | | | TESTS | | | | + + + + + CAPILLARY BLOOD GLUCOSE (NO CHG), POC (03/14/2013 6:30 PM PDT) + +---------+ + + + | Component | Value | Ref Range | Performed | Pathologist | | | | | At | Signature | + +---------+ + + + | BLOOD | 220 (H) | 60 - 99 mg/dL | [facility] | | | GLUCOSE, | | | [facility] | | | POC | | | [facility] | | [...] [facility] | [address] | [place], [place] | | | [facility] OF CARE | [address] | [address] | | | TESTS | | | | + + + + + CAPILLARY BLOOD GLUCOSE (NO CHG), POC (03/14/2013 12:17 PM PDT) + +---------+ + + + | Component | Value | Ref Range | Performed | Pathologist | | | | | At | Signature | + +---------+ + + + | BLOOD | 167 (H) | 60 - 99 mg/dL | [...] + | [facility] | [address] | [place], [place] | | | [facility] CARE | [address] | [address] | | | TESTS | | | | + + + + + CBC (HEMOGRAM) ONLY (03/14/2013 6:45 AM PDT) + + + + + + | Component | Value | Ref Range | Performed | Pathologist | | | | | At | Signature | + + + + + + | WHITE CELL | 8.76 | 4.40 - 11.00 | [facility] | | | COUNT | | K/cu mm | LABORATORY | | | | | | SERVICES, | | | | | | CORE | | + + + + + + | RED CELL | 4.60 | 4.50 - 6.00 | [facility] | | | COUNT | | M/cu mm | LABORATORY | | | | | | SERVICES, | | | | | | CORE | | + + + + + + | HEMOGLOBIN | 13.3 (L) | 13.5 - 17.5 | [facility] | | | | | g/dL | LABORATORY | | | | | | SERVICES, | | | | | | CORE | | + + + + + + | HEMATOCRIT | 40.5 (L) | 41.0 - 53.0 % | [facility] | | | | | | LABORATORY | | | | | | SERVICES, | | | | | | CORE | | + + + + + + | MCV | 88.0 | 80.0 - 96.0 fL | [facility] | | | | | | LABORATORY | | | | | | SERVICES, | | | | | | CORE | | + + + + + + | MCHC | 32.8 (L) | 33.0 - 35.5 | [facility] | | | | | g/dL | LABORATORY | | | | | | SERVICES, | | | | | | CORE | | + + + + + + | RDW SD | 43.4 | 35.1 - 46.3 fL | [facility] | | | | | | LABORATORY | | | | | | SERVICES, | | | | | | CORE | | + + + + + + | PLATELET | 213 | 150 - 400 K/cu | [facility] | | | COUNT | | mm | LABORATORY | | | | | | SERVICES, | | | | | | CORE | | + + + + + + | MPV | 10.1 | 9.7 - 12.3 fL | [facility] [...] At | + + + | New methodology and reference ranges for some CBC/Differential | [facility] | | analytes in effect on 03/10/13. | LABORATORY | | | SERVICES, CORE | + + + + + + + + | Performing | Address | City/State/Zipcode | Phone Number | | Organization | | | | + + + + + | [facility] | [address] | [place] [address] | | | SERVICES, CORE | [address] | | | + + + + + MAGNESIUM, PLASMA (03/14/2013 6:45 AM PDT) + +---------+ + + + | Component | Value | Ref Range | Performed | Pathologist | | | | | At | Signature | + +---------+ + + + | MAGNESIUM,P | 1.6 (L) | 1.8 - 2.5 mg/dL | [facility] | | | LASMA [...] + | [facility] | [address] | [place] [address] | | | SERVICES, CORE | [address] | | | + + + + + RENAL FUNCTION SET (NA,K,CL,CO2,BUN,CREAT,GLUC,CA,PHOS,ALB ) (03/14/2013 6:45 AM PDT) + +---------+ + + + | Component | Value | Ref Range | Performed | Pathologist | | | | | At | Signature | + +---------+ + + + | GLUCOSE, | 147 (H) | 60 - 99 mg/dL | [facility] | | | PLASMA | | | LABORATORY | | | (LAB) | | | SERVICES, | | | | | | CORE | | + +---------+ + + + | BUN, PLASMA | 6 | 6 - 20 mg/dL | [facility] | | | (LAB) | | | LABORATORY | | | | | | SERVICES, | | | | | | CORE | | + +---------+ + + + | CREATININE | 0.71 | 0.70 - 1.30 | [facility] | | | PLASMA | | mg/dL | LABORATORY | | | (LAB) | | | SERVICES, | | | | | | CORE | | + +---------+ + + + | EGFR | >60 | >60 mL/min | [facility] | | | - | | | LABORATORY | | | [place] | | | SERVICES, | | | | | | CORE | | + +---------+ + + + | EGFR NON | >60 | >60 mL/min | [facility] | | | -SARAH | | | LABORATORY | | | RICAN | | | SERVICES, | | | | | | CORE | | + +---------+ + + + | SODIUM, | 133 (L) | 136 - 145 | [facility] [...] +---------+ + + + | CHLORIDE, | 97 | 97 - 108 mmol/L | [facility] [...] +---------+ + + + | CALCIUM, | 8.4 (L) | 8.6 - 10.2 | [facility] | | | PLASMA | | mg/dL | LABORATORY | | | (LAB) | | | SERVICES, | | | | | | CORE | | + +---------+ + + + | ALBUMIN, | 3.1 (L) | 3.5 - 4.7 g/dL | [facility] | | | PLASMA | | | LABORATORY | | | (LAB) | | | SERVICES, | | | | | | CORE | | + +---------+ + + + | PHOSPHORUS, | 2.9 | 2.4 - 4.7 mg/dL | [facility] | | | PLASMA | | | LABORATORY | | | (LAB) | | | SERVICES, | | | | | | CORE | | + +---------+ + + + | POTASSIUM | | | [facility] | | | CMNT [...] +---------+ + + + | ANION | 12 [...] | + + + + + | [facility] | [address] | [place] [address] | | | SERVICES, CORE | [address] | | | + + + + + INR (03/14/2013 6:45 AM PDT) + + + + + + | Component | Value | Ref Range | Performed | Pathologist | | | | | At | Signature | + + + + + + | INR | 1.26 (H) | 0.90 - 1.20 INR | [...] | + + + + + | [facility] | [address] | [place] [address] | | | SERVICES, CORE | [address] | | | + + + + + CAPILLARY BLOOD GLUCOSE (NO CHG), POC (03/14/2013 6:26 AM PDT) + +---------+ + + + | Component | Value | Ref Range | Performed | Pathologist | | | | | At | Signature | + +---------+ + + + | BLOOD | 143 (H) | 60 - 99 mg/dL | [...] [facility] | [address] | [place], [place] | | | [facility] | [address] | [address] | | | TESTS | | | | + + + + + CAPILLARY BLOOD GLUCOSE (NO CHG), POC (03/14/2013 12:38 AM PDT) + +---------+ + + + | Component | Value | Ref Range | Performed | Pathologist | | | | | At | Signature | + +---------+ + + + | BLOOD | 148 (H) | 60 - 99 mg/dL | [...] [facility] | [address] | [place], [place] | | | [facility] OF CARE | [address] | [address] | | | TESTS | | | | + + + + + CAPILLARY BLOOD GLUCOSE (NO CHG), POC (03/13/2013 6:36 PM PDT) + +---------+ + + + | Component | Value | Ref Range | Performed | Pathologist | | | | | At | Signature | + +---------+ + + + | BLOOD | 141 (H) | 60 - 99 mg/dL | [facility] - | | | GLUCOSE, | [...] | [facility] | [address] | [place], [place] | | | [facility] | [facility] | [address] | | | TESTS | | | | + + + + + CAPILLARY BLOOD GLUCOSE (NO CHG), POC (03/13/2013 1:41 PM PDT) + +---------+ + + + | Component | Value | Ref Range | Performed | Pathologist | | | | | At | Signature | + +---------+ + + + | BLOOD | 170 (H) | 60 - 99 mg/dL | [...] [facility] | [address] | [place], [place] | | | [place] [facility] [place] | [address] | [address] | | | TESTS | | | | + + + + + CBC (HEMOGRAM) ONLY (03/13/2013 1:33 PM PDT) + + + + + + | Component | Value | Ref Range | Performed | Pathologist | | | | | At | Signature | + + + + + + | WHITE CELL | 14.43 (H) | 4.40 - 11.00 | [facility] | | | COUNT | | K/cu mm | LABORATORY | | | | | | SERVICES, | | | | | | CORE | | + + + + + + | RED CELL | 4.80 | 4.50 - 6.00 | [facility] | | | COUNT | | M/cu mm | LABORATORY | | | | | | SERVICES, | | | | | | CORE | | + + + + + + | HEMOGLOBIN | 13.7 | 13.5 - 17.5 | [facility] | | | | | g/dL | LABORATORY | | | | | | SERVICES, | | | | | | CORE | | + + + + + + | HEMATOCRIT | 41.3 | 41.0 - 53.0 % | [facility] | | | | | | LABORATORY | | | | | | SERVICES, | | | | | | CORE | | + + + + + + | MCV | 86.0 [...] + + + + | PLATELET | 228 | 150 - 400 K/cu | [facility] | | | COUNT | | mm | LABORATORY | | | | | | SERVICES, | | | | | | CORE | | + + + + + + | MPV | 10.2 | 9.7 - 12.3 fL | [facility] [...] At | + + + | New methodology and reference ranges for some CBC/Differential | [facility] | | analytes in effect on 03/10/13. | LABORATORY | | | SERVICES, CORE | + + + + + + + + | Performing | Address | City/State/Zipcode | Phone Number | | Organization | | | | + + + + + | [facility] | [address] | [place] [address] | | | [place] | [address] | | | + + + + + LACTATE (ART), POC SOR (03/13/2013 11:54 AM PDT) + +-------+ + + + | Component | Value | Ref Range | Performed | Pathologist | | | | | At | Signature | + +-------+ + + + | LACTATE POC | 1.5 | 0.5 - 1.6 | [facility] - | | | | | mmol/L [...] [facility] | [address] | [place], [place] | | | [place] | [address] | [address] | | | TESTS | | | | + + + + + SODIUM, POC (03/13/2013 11:54 AM PDT) + +-------+ + + + [...] | [facility] | [address] | [place], [place] | | | [facility] [place] | [facility] | [address] | | | TESTS | | | | + + + + + POTASSIUMLORETTA (03/13/2013 11:54 AM PDT) + +-------+ + + + | Component | Value | Ref Range | Performed | Pathologist | | | | | At | Signature | + +-------+ + + + | POTASSIUM, | 4.5 | 3.4 - 5.0 | [facility] - [...] [facility] | [address] | [place], [place] | | | [place], POINT OF CARE | [address] | [address] | | | TESTS | | | | + + + + + GLUCOSE, POC (03/13/2013 11:54 AM PDT) + +---------+ + + + | Component | Value | Ref Range | Performed | Pathologist | | | | | At | Signature | + +---------+ + + + | GLUCOSE, | 227 (H) | 60 - 99 mg/dL | [facility] - | | | POC | | [...] | [facility] | [address] | [place], [place] | | | [facility]INT OF CARE | [facility] | [address] | | | TESTS | | | | + + + + + CHLORIDE, POC (03/13/2013 11:54 AM PDT) + +-------+ + + + | Component | Value | Ref Range | Performed | Pathologist | | | | | At | Signature | + +-------+ + + + | CHLORIDE, | 108 | 97 - 108 mmol/L | [facility] [...] | [facility] | [address] | [place], [place] | | | [facility]INT OF CARE | [address] | [address] | | | TESTS | | | | + + + + + MATT LORETTA BASHIR (03/13/2013 11:54 AM PDT) + + + + + + | Component | Value | Ref Range | Performed | Pathologist | | | | | At | Signature | + + + + + + | MATT | 1.11 (L) | 1.14 - 1.32 | [facility] [...] [facility] | [address] | [place], [place] | | | [facility] CARE | [facility] | [address] | | | TESTS | | | | + + + + + HEMOGLOBIN-COOX, POC (03/13/2013 11:54 AM PDT) + +---------+ + + + | Component | Value | Ref Range | Performed | Pathologist | | | | | At | Signature | + +---------+ + + + | TOTAL | 13.9 | 13.5 - 17.5 | [facility] - | | | HEMOGLOBIN, | | g/dL | [facility] | | | POC | | | [facility] | | | | | | OF CARE | | | | | | TESTS | | + +---------+ + + + | OXYHEMOGLOB | 97.2 | 94.0 - 100 % | [facility] - | | | IN, POC | | | [facility] | | | | | | [facility] | | | | | | OF CARE | | | | | | TESTS | | + +---------+ + + + | CARBOXYHEMO | 1.7 (H) | 0.0 - 1.5 % | [facility] - | | | GLOBIN, POC | | | [facility] | | | | | | [place], POINT | | | | | | OF CARE | | | | | | TESTS | | + +---------+ + + + | DEOXYHEMOGL | 0.2 | | [facility] - | | | OBIN, POC | | | [facility] | | | | | | JOI, POINT | | | | | | OF CARE | | | | | | TESTS | | + +---------+ + + + | METHEMOGLOB | 0.9 | 0.0 - 1.9 % | [facility] - | | | IN, POC | | | [facility] | | | | | | [place], POINT | | | | | | OF CARE | | | | | | TESTS | | + +---------+ + + + | HEMATOCRIT, | 42.5 | 41.0 - 53.0 % | [facility] [...] | [facility] | [address] | [place], [place] | | | [facility] CARE | [address] | [address] | | | TESTS | | | | + + + + + ARTERIAL BLOOD GAS, POC (03/13/2013 11:54 AM PDT) + + + + + [...] + + + + | PO2 | 147 (H) | 72 - 104 mmHg | [facility] [...] + + + | O2 SAT | 99.8 (H) | 92.0 - 98.0 % | [facility] - | | | [facility], | | | [facility] | | | POC | | | [facility] | | | | | | [facility] | | | | | | TESTS | | + + + + + + | HCO3 | 22.9 | 21 - 28 mmol/L | [facility] - | | | [facility], | | | [facility] | | | POC | | | [facility] | | | | | | [facility]ARE | | | | | | TESTS | | + + + + + + | BASE EXCESS | -2.6 | | [facility] - | | | [...] [facility] | [address] | [place], [place] | | | [facility] | [address] | [address] | | | TESTS | | | | + + + + + CAPILLARY BLOOD GLUCOSE (NO CHG), POC (03/13/2013 6:22 AM PDT) + +---------+ + + + [...] | [facility] | [address] | [place], [place] | | | [facility] | [address] | [address] | | | TESTS | | | | + + + + + INR (03/13/2013 6:14 AM PDT) + + + + + + | Component | Value | Ref Range | Performed | Pathologist | | | | | At | Signature | + + + + + + | INR | 1.26 (H) | 0.90 - 1.20 INR | [...] | + + + + + | [facility] | [address] | [place] [address] | | | SERVICES, CORE | [address] | | | + + + + + CAPILLARY BLOOD GLUCOSE (NO CHG), POC (03/13/2013 1:11 AM PDT) + +---------+ + + + | Component | Value | Ref Range | Performed | Pathologist | | | | | At | Signature | + +---------+ + + + | BLOOD | 138 (H) | 60 - 99 mg/dL | [...] [facility] | [address] | [place], [place] | | | [facility] | [address] | [address] | | | TESTS | | | | + + + + + SURGICAL PATHOLOGY (03/13/2013) + + + + + + | Component | Value | Ref Range | Performed | Pathologist | | | | | At | Signature | + + + + + + | SURGICAL | [facility] OF SPECIMEN:A | | [facility] | | | PATHOLOGY | Gallbladder and | | DEPARTMENT | | | | contents Final | | OF | | | | Pathologic | | PATHOLOGY | | | | Diagnosis:Gallbladder | | | | | | and contents, | | | | | | cholecystectomy: | | | | | | - Chronic | | | | | | cholecystitis - | | | | | | Cholelithiasis | | | | | | Case seen by:Grace Berkowitz | | | | | | Vaishnavi Staples/Surgical | | | | | | Pathology Tarun | | | | | | Radha | | | | | | Vaishnavi/PathologistT: | | | | | | 3:minda Clinical | | | | | | History:The patient is a | | | | | | 62-year-old | | | | | | male. Per | | | | | | Epic: cholecystitis. | | | | | | Gross | | | | | | Description:Received is | | | | | | 1 specimen fresh in a | | | | | | container labeled with | | | | | | the patient's | | | | | | name(initials TH) and | | | | | | "gallbladder and | | | | | | contents."Size: | | | | | | 7.2 | | | | | | x 3.5 x 1.2 cmCystic | | | | | | duct: Abs | | | | | | ent. Specimen is | | | | | | disrupted and previously | | | | | | opened atneck.Cystic | | | | | | node: Abs | | | | | | entWall | | | | | | thickness: 0.1 | | | | | | cmSerosa: | | | | | | [place]-duncan with erythema | | | | | | with a single | | | | | | transmural defect, 0.5cm | | | | | | at the neckBile | | | | | | contents: Red | | | | | | -brown | | | | | | bileStones: | | | | | | Multiple black ovoid | | | | | | calculi ranging from 0.5 | | | | | | up to 0.7 | | | | | | cmMucosa: | | | | | | Red and velvety | | | | | | The cystic duct margin | | | | | | is entirely submitted | | | | | | and medical detail representative | | | | | | sectionsfrom the fundus | | | | | | and body are | | | | | | submitted. | | | | | | Cassette | | | | | | Index:[id number]/minda | | | | | | My electronic signature | | | | | [...] | | | | | | Diagnostician: Yahir | | | | | | s Weeks | | | | | | MHilarioPathologistElectroni | | | | | | donald Signed | | | | | | 03/15/2013 1:27PM | | | | + + + + + + + + | Specimen | + + | | + + + + + + + | Performing | Address | City/State/Zipcode | Phone Number | | Organization | | | | + + + + + | [facility] | [address] | [place] [address] | | | PATHOLOGY | [address] | | | + + + + + CAPILLARY BLOOD GLUCOSE (NO CHG), POC (03/12/2013 8:57 PM PDT) + +---------+ + + + | Component | Value | Ref Range | Performed | Pathologist | | | | | At | Signature | + +---------+ + + + | BLOOD | 127 (H) | 60 - 99 [...] [facility] | [address] | [place], [place] | | | [facility] CARE | [address] | [address] | | | TESTS | | | | + + + + + CAPILLARY BLOOD GLUCOSE (NO CHG), POC (03/12/2013 1:01 PM PDT) + +---------+ + + + | Component | Value | Ref Range | Performed | Pathologist | | | | | At | Signature | + +---------+ + + + | BLOOD | 104 (H) | 60 - 99 mg/dL | [...] [facility] | [address] | [place], [place] | | | JOI POINT OF CARE | [address] | [address] | | | TESTS | | | | + + + + + CAPILLARY BLOOD GLUCOSE (NO CHG), POC (03/12/2013 8:26 AM PDT) + +---------+ + + + | Component | Value | Ref Range | Performed | Pathologist | | | | | At | Signature | + +---------+ + + + | BLOOD | 163 (H) | 60 - 99 mg/dL | [facility] | | | GLUCOSE, | | [...] | [facility] | [address] | [place], [place] | | | [facility] OF [place] | [address] | [address] | | | TESTS | | | | + + + + + INR (03/12/2013 6:47 AM PDT) + + + + + + | Component | Value | Ref Range | Performed | Pathologist | | | | | At | Signature | + + + + + + | INR | 1.48 (H) | 0.90 - 1.20 INR | [...] | + + + + + | [facility] | [address] | [place] [address] | | | SERVICES, CORE | [address] | | | + + + + + CAPILLARY BLOOD GLUCOSE (NO CHG), POC (03/11/2013 11:55 PM PDT) + +---------+ + + + [...] [facility] | [address] | [place] | | | [facility] OF CARE | [address] | [address] | | | TESTS | | | | + + + + + CAPILLARY BLOOD GLUCOSE (NO CHG), POC (03/11/2013 7:13 PM PDT) + +---------+ + + + | Component | Value | Ref Range | Performed | Pathologist | | | | | At | Signature | + +---------+ + + + | BLOOD | 164 (H) | 60 - 99 mg/dL | [...] [facility] | [address] | [place], [place] | | | [place] [facility] [place] | [address] | [address] | | | TESTS | | | | + + + + + CAPILLARY BLOOD GLUCOSE (NO CHG), POC (03/11/2013 3:18 PM PDT) + +---------+ + + + | Component | Value | Ref Range | Performed | Pathologist | | | | | At | Signature | + +---------+ + + + | BLOOD | 131 (H) | 60 - 99 mg/dL | [...] | [facility] | [address] | [place], [place] | | | [facility] OF CARE | [address] | [address] | | | TESTS | | | | + + + + + CAPILLARY BLOOD GLUCOSE (NO CHG), POC (03/11/2013 9:59 AM PDT) + +---------+ + + + | Component | Value | Ref Range | Performed | Pathologist | | | | | At | Signature | + +---------+ + + + | BLOOD | 127 (H) | 60 - 99 [...] [facility] | [address] | [place] | | | [place] | [address] | [address] | | | TESTS | | | | + + + + + INR (03/11/2013 7:21 AM PDT) + + + + + + | Component | Value | Ref Range | Performed | Pathologist | | | | | At | Signature | + + + + + + | INR | 2.61 (H) | 0.90 - 1.20 INR | [...] + | [facility] | [address] | [place] [address] | | | PEARL, NAY | [address] | | | + + + + + CAPILLARY BLOOD GLUCOSE (NO CHG), POC (03/10/2013 9:47 PM PDT) + +---------+ + + + | Component | Value | Ref Range | Performed | Pathologist | | | | | At | Signature | + +---------+ + + + | BLOOD | 210 (H) | 60 - 99 mg/dL | [...] | [facility] | [address] | [place], [place] | | | [facility] [place] [facility] | [facility] | [address] | | | TESTS | | | | + + + + + X-RAY CHEST 2 VIEW (03/10/2013 6:50 PM PDT) + + + + + + | Component | Value | Ref Range | Performed | Pathologist | | | | | At | Signature | + + + + + + | CHEST, 2 | STUDY: CHEST 2 VIEWS | | | | | VIEWS [place] | 03/10/13 18:50:00 | | | | | STEREO | COMPARISON: None. | | | | | | HISTORY: Preoperative | | | | | | evaluation. FINDINGS: | | | | | | There is syndesmophyte | | | | | | formation seen | | | | | | throughout the thoracic | | | | | | spine with mildincreased | | | | | | thoracic | | | | | | kyphosis. The pleural | | | | | | margins and lungs | | | | | | appear clear thecardiac | | | | | | silhouette is within | | | | | | normal limits. There | | | | | | is mild tortuosity of | | | | | | thethoracic aorta. 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 | | | | | | Clear lungs. Attending | | | | | | Radiologists: GRADY | | | | | | JONY GUTIERREZuthor: | | | | | | GRADY GUTIERREZ MD I | | | | | | have personally viewed | | | | | | this procedure/exam, | | | | | | reviewed this report, | | | | | | and madechanges to it | | | | | | where appropriate. | | | | | | Final/Electronically | | | | | | signed / GRADY | | | | | | MATT 03/10/2013 | | | | | | 19:45 PM | | | | + + [...] | | | + +---------+ + + ANTIBODY SCREEN (03/10/2013 6:21 PM PDT) + + + + + [...] + | [facility] | [address] | [place] [address] | | | SERVICES, | [address] | | | | TRANSFUSION MEDICINE | | | | + + + + + ABO & RH TYPE (03/10/2013 6:21 PM PDT) + + + + + [...] + | [facility] | [address] | [place] [address] | | | SERVICES, | [address] | | | | TRANSFUSION MEDICINE | | | | + + + + + CBC (HEMOGRAM) ONLY (03/10/2013 6:21 PM PDT) + + + + + + | Component | Value | Ref Range | Performed | Pathologist | | | | | At | Signature | + + + + + + | WHITE CELL | 6.94 | 4.40 - 11.00 | [facility] | | | COUNT | | K/cu mm | LABORATORY | | | | | | SERVICES, | | | | | | CORE | | + + + + + + | RED CELL | 4.74 | 4.50 - 6.00 | [facility] | | | COUNT | | M/cu mm | LABORATORY | | | | | | SERVICES, | | | | | | CORE | | + + + + + + | HEMOGLOBIN | 13.3 (L) | 13.5 - 17.5 | [facility] | | | | | g/dL | LABORATORY | | | | | | SERVICES, | | | | | | CORE | | + + + + + + | HEMATOCRIT | 40.4 (L) | 41.0 - 53.0 % | [facility] | | | | | | LABORATORY | | | | | | SERVICES, | | | | | | CORE | | + + + + + + | MCV | 85.2 | 80.0 - 96.0 fL | [facility] | | | | | | LABORATORY | | | | | | SERVICES, | | | | | | CORE | | + + + + + + | MCHC | 32.9 (L) | 33.0 - 35.5 | [facility] | [...] + + + + | PLATELET | 214 | 150 - 400 K/cu | [facility] | | | COUNT | | mm | LABORATORY | | | | | | SERVICES, | | | | | | CORE | | + + + + + + | MPV | 9.9 | 9.7 - 12.3 fL | [facility] [...] At | + + + | New methodology and reference ranges for some CBC/Differential | [facility] | | analytes in effect on 03/10/13. | LABORATORY | | | SERVICES, CORE | + + + + + + + + | Performing | Address | City/State/Zipcode | Phone Number | | Organization | | | | + + + + + | [facility] | [address] | [place] [address] | | | SERVICES, CORE | [address] | | | + + + + + LIPASE, PLASMA (03/10/2013 6:21 PM PDT) + +---------+ + + + | Component | Value | Ref Range | Performed | Pathologist | | | | | At | Signature | + +---------+ + + + | LIPASE | 126 (L) | 152 - 353 U/L | [facility] | | | (LAB) | | | [...] | + + + + + | [facility] | [address] | [place] [address] | | | SERVICES, CORE | [address] | | | + + + + + AMYLASE, PLASMA (03/10/2013 6:21 PM PDT) + +-------+ + + + | Component | Value | Ref Range | Performed | Pathologist | | | | | At | Signature | + +-------+ + + + | AMYLASE,SG | 107 | 25 - 115 U/L | [facility] | | | SMA | | | LABORATORY | | | [...] | + + + + + | [facility] | [address] | [place] [address] | | | PEARL, NAY | [address] | | | + + + + + APTT (ACT. PART. THROMBO TIME) (03/10/2013 6:21 PM PDT) + + + + + + | Component | Value | Ref Range | Performed | Pathologist | | | | | At | Signature | + + + + + + | APTT | 49.3 (H) | 26.0 - 36.0 | [facility] | | | | | seconds | LABORATORY | | | | | | SERVICES, | | | | | | CORE | | + + + + + + + + | Specimen | + + | Blood - Blood | + + + + + | Narrative | Performed At | + + + | APTT Therapeutic | [facility] | | Range: (75 - 120) sec | LABORATORY | | Heparin levels of 0.35 - 0.7 U/mL | SERVICES, CORE | + + + + + + + + | Performing | Address | City/State/Zipcode | Phone Number | | Organization | | | | + + + + + | [facility] | [address] | [place] [address] | | | SERVICES, NAY | [address] | | | + + + + + PHOSPHORUS, PLASMA (03/10/2013 6:21 PM PDT) + +-------+ + + + | Component | Value | Ref Range | Performed | Pathologist | | | | | At | Signature | + +-------+ + + + | PHOSPHORUS, | 2.5 [...] + | [facility] | [address] | [place] [address] | | | SERVICES, CORE | [address] | | | + + + + + MAGNESIUM, PLASMA (03/10/2013 6:21 PM PDT) + +-------+ + + + | Component | Value | Ref Range | Performed | Pathologist | | | | | At | Signature | + +-------+ + + + | MAGNESIUM,P | 1.9 | 1.8 - 2.5 mg/dL | [facility] | | | LASMA [...] | + + + + + | [facility] | [address] | [place] [address] | | | SERVICES, CORE | [address] | | | + + + + + INR (03/10/2013 6:21 PM PDT) + + + + + + | Component | Value | Ref Range | Performed | Pathologist | | | | | At | Signature | + + + + + + | INR | 2.72 (H) | 0.90 - 1.20 INR | [...] + + | [facility] | [address] | [place] [address] | | | SERVICES, CORE | [address] | | | + + + + + COMPLETE METABOLIC SET (NA,K,CL,CO2,BUN,CREAT,GLUC,CA,AST,ALT,BILI TOTAL,ALK PHOS,ALB,PROT TOTAL) (03/10/2013 6:21 PM PDT) + +---------+ + + + | Component | Value | Ref Range | Performed | Pathologist | | | | | At | Signature | + +---------+ + + + | GLUCOSE, | 184 (H) | 60 - 99 mg/dL | [...] | | | LABORATORY | | | BURUNDIAN | | | SERVICES, | | | | | | CORE | | + +---------+ + + + | EGFR NON | >60 | >60 mL/min | [facility] | | | -SARAH | | | LABORATORY | | | RICAN | | | SERVICES, | | | | | | CORE | | + +---------+ + + + | SODIUM, | 141 | 136 - 145 | [facility] | [...] +---------+ + + + | CHLORIDE, | 106 | 97 - 108 mmol/L | [facility] [...] +---------+ + + + | TOTAL | 7.2 | 6.4 - 8.2 g/dL | [facility] | | | PROTEIN, | | | LABORATORY | | | PLASMA | | | SERVICES, | | | (LAB) | | | CORE | | + +---------+ + + + | ALBUMIN, | 3.3 (L) | 3.5 - 4.7 g/dL | [facility] | | | PLASMA | | | LABORATORY | | | (LAB) | | | SERVICES, | | | | | | CORE | | + +---------+ + + + | ALK PHOS | 80 | 56 - 119 U/L | [facility] | | | | | | LABORATORY | | | | | | SERVICES, | | | | | | CORE | | + +---------+ + + + | AST(SGOT) | 42 (H) | 15 - 41 U/L | [facility] | | | | | | LABORATORY | | | | | | SERVICES, | | | | | | CORE | | + +---------+ + + + | ALT (SGPT) | 61 (H) | 12 - 60 U/L | [facility] | | | | | | LABORATORY | | | | | | SERVICES, | | | | | | CORE | | + +---------+ + + + | ANION | 13 (H) | 4 - 11 mmol/L | [...] + + + | ANION GAP | 12 | mmol/L | [facility] | | | [...] Interpretive Information: <60 mL/min/1.73 sq | SERVICES, [facility] | | m Chronic Kidney Disease <15 [...] | + + + + + | [facility] | [address] | [place] [address] | | | NAY KANG | [address] | | | + + + + + CAPILLARY BLOOD GLUCOSE (NO CHG), POC (03/10/2013 6:04 PM PDT) + +---------+ + + + | Component | Value | Ref Range | Performed | Pathologist | | | | | At | Signature | + +---------+ + + + | BLOOD | 195 (H) | 60 - 99 mg/dL | [facility] - | | | GLUCOSE, | [...] | [facility] | [address] | [place], [place] | | | JOI POINT OF CARE | [address] | [address] | | | TESTS | | | | + + + + + 12 LEAD ECG (03/10/2013 5:56 PM PDT) + + + + + [...] + + + + | P-R | 202 | ms | [facility] | | | INTERVAL | | | OF | | | | | | CARDIOLOGY | | + + + + + + | QRS | 102 | ms | [facility] | | | DURATION | | | OF | | | | | | CARDIOLOGY | | + + + + + + | QT | 388 | ms | [facility] | | | | | | OF | | | | | | CARDIOLOGY | | + + + + + + | QTC | 412 | ms | [facility] | | | | | | OF | | | | | | CARDIOLOGY | | + + + + + + | P AXIS | 26 | degrees | [facility] | | | | | | OF | | | | | | CARDIOLOGY | | + + + + + + | R AXIS | -46 | degrees | [facility] | | | | | | OF | | | | | | CARDIOLOGY | | + + + + + + | T AXIS | 40 | degrees | [facility] | | [...] on | | | | | | 03/10/2013 7:22:13 PM | | | | + + + + + + + + | Specimen | + + | | + + + + + | Narrative | Performed At | + + + | Please click | [facility] | | on view image for the detailed interpretation from [employer] results. | CARDIOLOGY | + + + + + | Procedure Note | + + | Interface, Cardiology Results - 03/10/2013 7:22 PM PDT Please click on view image | | for the detailed interpretation from [employer] results. | + + + + + + + | Performing | Address | City/State/Zipcode | Phone Number | | Organization | | | | + + + + + | [facility] | [address] | [place], [place] | | | CARDIOLOGY | [address] | [address] | | + + + + + RADIOLOGY (03/10/2013 12:00 AM PDT) + + + | Narrative | Performed At | + + + | | | | | | + + + + + | Procedure Note | + + | Sameera Patel - 03/10/2013 5:40 PM PDT | + + documented in this encounter Visit Diagnoses + + | Diagnosis | + + | Acute cholecystitis | + + | Ventral hernia Ventral hernia, unspecified, without mention of obstruction or | | gangrene | + + documented in this encounter Administered Medications + +--------+ +-------+------+ + | Medication Order | MAR | Action | Dose | Rate | Site | | | Action | Date | | | | + +--------+ +-------+------+ + | bupivacaine (PF) (aka | Given | 03/13/20 | 26 mL | | Abdomina | | MARCAINE,SENSORCAINE-MPF) | | 13 12:26 | | | l Tissue | | injection INTRAPROCEDURE PRN, | | PM PDT | | | | | Starting Wed03/13/13 at 1226, | | | | | | | Until Wed03/13/13 at 1239 | | | | | | + +--------+ +-------+------+ + +---+---+ | | | +---+---+ documented in this encounter
--- OUTSIDE RECORDS SUMMARY | ~2019-01-28 | XMS | Encounter Summary ---
Demographics + + + | Address | [address] | | | [place] [address] | + + + | Home Phone [...] Providers + +------+ + | Care Qa Automation Developer Name | Role | Phone | + +------+ + | Kita Schafer MD | PCP | | + +------+ + Encounter Details +--------+ + + + + | Date | Type | Department | Care Team | Description | +--------+ + + + + | 03/11/ | Documentati | Hematology/Medical | Mois[place], | | | 2010 | on | Oncology at [facility] | MD Jorge [address] | | | | | [address] | [place], | | | | | Mailcode: CH7 | [place] [address] | | | | | [facility] | [phone] | | | | | and , | | | | | | Floor [place], [place] | | | | | | [address] | | | | | | [phone] | | | +--------+ + + + [...]
--- OUTSIDE RECORDS SUMMARY | ~2019-01-28 | XMS | Encounter Summary ---
Demographics + + + | Address | [address] | | | [place] [address] | + + + | Home Phone [...] Author + + + | Author | [facility] | + + + | Organization | [facility] | + + + | Address [...] Team Providers + +------+ + | Care Pst Supervisor Name | Role | Phone | + +------+ + | Gracie Mariano MD | PCP | Unavailable | + +------+ + Encounter Details +--------+ + + + + | Date | Type | Department | Care Team | Description | +--------+ + + + + | 05/23/ | Document-Sc | UNKNOWN DEPARTMENT | Unknown . | | | 2013 | anned | [address] [address] | | | | | | [facility] | | | | | | [place], [place] | | | | | | [address] | | | +--------+ + + + [...] | + +--------+ + + + | RADIOLOGY | | 05/23/2014 | | Results for this | | | | 12:00 AM | | procedure are in the | | | | PDT | | results section. | + +--------+ + + + documented in this encounter Results RADIOLOGY (05/23/2014 12:00 AM PDT) + + + | Narrative | Performed At | + + + | | | | | | + + + + + | Procedure Note | + + | Sameera Patel - 11/21/2014 12:23 PM PDT | + + documented in this encounter Visit Diagnoses Not on filedocumented in this encounter"
--- OUTSIDE RECORDS SUMMARY | ~2019-01-28 | XMS | Encounter Summary ---
Demographics + + + | Address | [address] | | | [place] [address] | + + + | Home Phone [...] Team Providers + +------+ + | Care Industrial Safety Engineer Name | Role | Phone | [...] | | Hector [address]na [address] | [place] [address] | | | | | [address] | [phone] | | | | | Road Mailcode: | | | | | | [address] | | | | | | [address] | | | | | | [place], [place] | | | | | | [address] | | | | | | [phone] | | | +--------+ + + + [...]
--- OUTSIDE RECORDS SUMMARY | ~2019-01-28 | XMS | Encounter Summary ---
Demographics + + + | Address | [address] | | | [place] [address] | + + + | Home Phone | | + + + | Preferred Language | Unknown | + + + | Marital Status | Single | + + + | Worship Affiliation | BAP | + + + | Race | or | + + + | Ethnic Group | Not or | + + + Author + + + | Author | [facility] | + + + | Organization | [facility] | + + + | [...] Team Providers + +------+ + | Care Adult Education Professional Name | Role | Phone | + [...] | | | | | whether | [place], [place] | for Health | | | | | generalized | [address] | and Healing, | | | | | or | Phone: | 1st floor | | | | | localized, | [phone] | [place], [place] | | | | | pelvic | Fax: | [address] | | | | | region and | [phone] | Phone: | | | | | thigh | | [phone] | | | | | Procedures | | Fax: | | | | | PHYSICAL | | [phone] | | | | | THERAPY | [...] | (Primary Dx) | | | | [facility] | [place] [address] | | | | | [address] | [phone] | | | | | Mailcode: CH3P | | | | | | [facility] | | | | | | and Healing, [facility] | | | | | | [place], [place] | | | | | | [address] | | | | | | [phone] | | | +--------+---------+ + + + [...] Zhanna Claudio - 03/02/2013 9:10 AM PDT [id number] JORGE L CISNEROS Date of : 1950 [...] is unhappy with previous experience at rehab [facility]; would like to make sure he has PT after this hip surgery. Pt lives in [place]. Functional limitations Unable to walk without bilat [...] Frequency/Duration: 1x/week x12 weeks. Pt lives in [place] and has a PT there. Treatment began: 1245 Treatment ended: 1315 This note is to serve as the discharge summary if Jorge L Cisneros fails to attend further Phys ical Therapy appointments or contact the therapist regarding any change in their status. ZHANNA CLAUDIO [facility] [address] Mailcode: [address] [address] Payment Authorization Request and Status Report: [facility] Contact Contact Billing Provider Number: [id number] Therapist Provider Number: [id number] Referring Prescribing Practitioner: Jorge Walker MD Primary Diagnosis/ICD-9: 1. Osteoarthrosis, hip Prescribing Practitioner Provider Number: [facility] Physician [id number]. Outside [facility] Physician: _ Proposed PA Start Date: Date PA is approved. Procedure Codes: Brief Evaluation 05350 Modalities Codes: None Minutes per session: 45 [...]
--- OUTSIDE RECORDS SUMMARY | ~2019-01-28 | XMS | Encounter Summary ---
Demographics + + + | Address | [address] | | | [place] [address] | + + + | Home Phone [...] Team Providers + +------+ + | Care Freezer Worker Name | Role | Phone | + +------+ + | Gracie Mariano MD | PCP | Unavailable | + +------+ + Reason for Visit + + + | Reason | Comments | + + + | Pre-operative | | | evaluation | | + + + Encounter Details +--------+---------+ + + + | Date | Type | Department | Care Team | Description | +--------+---------+ + + + | 03/02/ | Office | Preoperative | Lilliana Cottonwood, | Preoperative | | 2012 | Visit | Medicine Clinic at | MD Steven Vang | examination (Primary | | | | MPV Floor Day | [facility] [address] | Dx); | | | | Stay [address] | [place], [place] | Osteoarthrosis, hip; | | | | [facility] | [address] | Ankylosing | | | | Mailcode: [id number] | [phone] | spondylitis (HCC); | | | | [facility] | | Other specified | | | | [address] [place] [address] | | pre-operative | | | | [address] | | examination | | | | [phone] | | | +--------+---------+ + + + Anesthesia Record + + + + + | Procedure Name | Responsible | Anesthesia Start | Anesthesia Stop Time | | | Anesthesiologist | Time | | + + + + + | TOTAL HIP | | | | | ARTHROPLASTY on | | | | | 03/29/2013 by Jorge | | | | | Royal Walker MD at [facility] | | | | | 6A (canceled) | | | | + + [...] + + + | Blood Pressure | 153/82 | 03/02/2013 10:57 AM | | | | | PDT | | + + + + + | Pulse | 64 | 03/02/2013 10:57 AM | | | | | PDT | | + + + + + | Temperature | 36.9 C (98.4 F) | 03/02/2013 10:57 AM | | | | | PDT | | + + + + + | Respiratory Rate | 12 | 03/02/2013 10:57 AM | | | | | PDT | | + + + + + | Oxygen Saturation | 96% | 03/02/2013 10:57 AM | | | | | PDT | | + + + + + | Inhaled Oxygen | - | - | | | Concentration | | | | + + + + + | Weight | 115.5 kg (254 lb | 03/02/2013 10:57 AM | | | | 11.2 oz) | PDT | | + + + + + | Height | 166.4 cm (5' 5.5") | 03/02/2013 10:57 AM | | | | | PDT | | + + + + + | Body Mass Index | 41.74 | 03/02/2013 10:57 AM | | | | | PDT | | + + + + + documented in this encounter Patient Instructions Patient Instructions Emperatriz Tijerina MD - 03/02/2013 11:21 AM PDT PREOPERATIVE INSTRUCTIONS Special Instructions for Orthopedic Patients Having Joint Replacement Surgery Nasal swab culture to screen for staph bacteria. If the culture obtained during your vi sit with us turns positive (meaning that there is bacterial growth), you will be contacted b y us with additional instructions on how to prepare for surgery. If no growth, then no call ! G wipe packet and instructions on proper skin cleaning Please be sure to follow the se romano instructions regarding proper skip preparation before surgery. Empty stomach before surgery On the day BEFORE your surgery, drink plenty of fluids and s srinivas well hydrated NOTHING to eat or drink after midnight the night before surgery, or 8 hours prior to mclain rgery. This includes water, coffee, candy, mints, gum. Medications Instructions TAKE the following medications with a sip of water on the mornin g of surgery: Metoprolol Morphine Thyroid pill Do NOT take the following medications on the morning of surgery: Glipizide Lisinopril Coumadin --> Lovenox bridging. Should be arranged through your primary care doctor. Do not take any Aspirin, vitamin E or non-steroidal anti-inflammatory (NSAIDs i.e. Advil , Aleve, Ibuprofen) or herbal supplements 7 days prior to your surgery. These drugs may inte rfere with normal blood clotting and may cause excessive bleeding and bruising during or aft er the surgery. If you need a pain medication for [...] late for your check in for surgery. Please remember to brush your teeth the [...] or walk. Surgery Check in Locations Admitting [facility], [facility] Surgery Check in Time: The [...] it is after office hours, call the [facility] cogeneration operator at [phone] and ask them to page him or h er. Preparing For Your Surgery Video -- 7 minutes of instructions! Access the [facility] website [email or web address] --> POPULAR RESOURCES --> Patient Guide --> Preparing for your Visit or Surgery --> "Preparing for Your Surgery" video link documented in this encounter Progress Notes Anita Jackson MA - 03/02/2013 11:28 AM PDT Venipuncture performed in clinic, blood sample obtained from Left antecubital site Hemoglob in A1C POCT performed during clinic visit. Blood sample obtained from venipuncture performed to obtain other lab tests. aylorEmperatriz MD - 0 03/02/2013 11:17 AM PDT PREOPERATIVE CONSULT NOTE Consulting Provider: EMPERATRIZ TIJERINA MD Referring Physician: Dr. Walker Primary Care Provider: Gracie Mariano MD Reason for Consult: Preoperative evaluation and risk assessment Proposed Procedure/Date: complex right SUSHIL 03/14/2013 HISTORY OF PRESENT ILLNESS: Jorge L Cisneros is a 62 y.o. male here for preoperative evaluation for above procedure. Pt has dx of OA and ankylosing spondylitis with completely fused spine (including cervical spine). Pt also has hx of anti-phospholipid antibody; he's on chronic coumadin for that and will need Lovenox bridging around the time of surgery. Pt reports that his health has been stable since his last visit in our clinic (05/03/2012 [facility] Aneesh Montemayor before his left hip arthroplasty). He has DM controlled with glipizide and HTN controlled with lisinopril. He has no hx nor symptoms of CAD, CHF, CVA, CKD or DM (treated with insulin). Functional c apacity is Low ROS: Current Medication List Name Sig CHOLECALCIFEROL (VITAMIN [...] conditions Past Surgical History Procedure Date Colectomy 2002 partial, for diverticulitis Rotator cuff repair 1998 Family History Problem Relation Cancer Mother mesothelioma Heart Disease Father History Substance Use Topics Smoking status: Former Smoker -- 0.50 packs/day for 2 years Types: Cigarettes Quit date: 12/14/1981 Smokeless tobacco: Never Used Alcohol Use: No PHYSICAL EXAM: Last Vitals: BP 153/82 | Pulse 64 | Temp (Src) 36.9 C (98.4 F) (Oral) | RR 12 | Ht 1.66 4 m (5' 5.5") | Wt 115.531 kg (254 lb 11.2 oz) | SpO2 96% | BMI 41.72 kg/(m^2) Body mass ind ex is 41.72 kg/(m^2). LAB DATA REVIEWED/ORDERED Lab Results Component Value Date WBC 7.9 03/02/2013 HB 15.4 03/02/2013 HCT 45.6 03/02/2013 PLT 237 03/02/2013 MCV 87.6 03/02/2013 RDW 14.6 03/02/2013 Lab Results Component Value Date NA 139 03/02/2013 K 4.6 03/02/2013 CL 103 03/02/2013 BICARB 26 03/02/2013 BUN 13 03/02/2013 CR 0.78 03/02/2013 GLU 112 03/02/2013 CA 9.7 03/02/2013 AST 33 03/02/2013 ALT 61 03/02/2013 AP 94 03/02/2013 TBILI 0.7 03/02/2013 TP 8.4 03/02/2013 ALB 3.9 03/02/2013 Lab Results Component Value Date ABO A 04/28/2012 RH Positive 04/28/2012 Lab Results Component Value Date A1C 7.3 03/02/2013 EKG: Personally reviewed, NSR, HR 62/min. Incomplete RBBB MEDICAL DECISION MAKIN ACC/ AHA Perioperative GuidelinesPt does not meet acc/aha guidelines for additional ca rdiac testing Surgery Risk: Intermediate Patient-related risk: Estimated ASA class -- 3 ASSESSMENT and RECOMMENDATIONS: Surgical/anesthesia risk assessment: Jorge L Cisneros is a 62 y.o. male with diagnosis of se nicholas OA, scheduled for Complex R SUSHIL. According to ACC/AHA, this patient has zero clinical risk factors and the recommendation is to proceed with planned surgery without additional ca rdiac testing. Medication management recommendations: The patient was advised to continue all usual med ications except as noted in Patient Instructions (After Visit Summary given to pt) Perioperative antibiotic prophylaxis: Standard Anesthesia related issues: Neck fusion from ankylosing spondylitis -- pt has no range of motion about his neck. Reports hx of tachycardia after surgery for diverticulitis. DM, controlled with glipizide. Post op he will need to be managed with sliding scale in sulin while in house. He should be back on his usual oral hypoglycemic at the time of dicha rge. HTN, controlled with lisinopril. No changes recommended. ANTICOAGULATION for antiphospholipid antibody syndrome (hypercoagulable!). Because this pa tient meets criteria for Lovenox bridging before surgery, the following are recommendations on how this issue should be managed (arrangements will be made through patient's PCP who ma nages this patient's INR): Check INR seven days before surgery. If INR is therapeutic (i.e. 2-3), stop Coumadin five days before surgery. Begin Lovenox 1mg/kg subQ twice a day three days before surgery. The last dose of Lovenox should be administered ~ 24 hours before surgery (i.e., no Lovenox the evening before surger y or the morning of surgery). Resume Coumadin and Lovenox ~24 hours after surgery. Check daily INR. When INR is > 1.8, Lovenox can be stopped and Coumadin continued as before the surgery. This patient is medically stable for surgery. Further testing/optimization is not needed. Thank you for the opportunity to contribute to this patient's care. EMPERATRIZ TIJERINA MD [facility] [address] [facility] [address] I spent 40 minutes with the patient. Greater than 50% of the time was spent counseling the patient regarding perioperative risk assessment (cardiac, bleeding, surgical site infection , etc) and methods to avoid post op complications including respiratory failure/hospital acq uired pneumonia and DVT. The patient was also advised regarding NPO requirement, hydration before surgery, showering, general body hygiene. All pre-procedure instructions given to th e patient. All of patient's questions answered and clarified. Patient verbalized understan ding of the instructions given. 1 :46 PM PDTdocumented in this encounter Plan of Treatment Not on filedocumented as of this encounter Procedures + +--------+ + + + | Procedure Name | Priori | Date/Time | Associated Diagnosis | Comments | | | ty | | | | + +--------+ + + + | [place] COLLECTION VENOUS | Routin | 03/02/2013 | Other specified | | | BLOOD,VENIPUNCTURE | e | 11:28 AM | pre-operative | | | | | PDT | examination | | + +--------+ + + + | HEMOGLOBIN A1C, POC | Routin | 03/02/2013 | Preoperative | Results for this | | | e | 11:27 AM | examination | procedure are in the | | | | PDT | Osteoarthrosis, hip | results section. | | | | | Ankylosing | | | | | | spondylitis (HCC) | | + +--------+ + + + | CBC ONLY | Routin | 03/02/2013 | Preoperative | Results for this | | | e | 11:16 AM | examination | procedure are in the | | | | PDT | Osteoarthrosis, hip | results section. | | | | | Ankylosing | | | | | | spondylitis (HCC) | | + +--------+ + + + | COMPLETE METABOLIC | Routin | 03/02/2013 | Preoperative | Results for this | | SET | e | 11:16 AM | examination | procedure are in the | | (NA,K,CL,CO2,BUN,CRE | | PDT | Osteoarthrosis, hip | results section. | | AT,GLUC,CA,AST,ALT,B | | | Ankylosing | | | AARON TOTAL,ALK | | | spondylitis (HCC) | | | PHOS,ALB,PROT TOTAL) | | | | | + +--------+ + + + | CBC ONLY | Routin | 03/02/2013 | Preoperative | Results for this | | | e | 11:16 AM | examination | procedure are in the | | | | PDT | Osteoarthrosis, hip | results section. | | | | | Ankylosing | | | | | | spondylitis (HCC) | | + +--------+ + + + | ANTIBODY SCREEN | Routin | 03/02/2013 | Preoperative | Results for this | | | e | 11:15 AM | examination | procedure are in the | | | | PDT | Osteoarthrosis, hip | results section. | | | | | Ankylosing | | | | | | spondylitis (HCC) | | + +--------+ + + + | TYPE AND SCREEN | Routin | 03/02/2013 | Preoperative | Results for this | | | e | 11:15 AM | examination | procedure are in the | | | | PDT | Osteoarthrosis, hip | results section. | | | | | Ankylosing | | | | | | spondylitis (HCC) | | + +--------+ + + + | ABO & RH TYPE | Routin | 03/02/2013 | Preoperative | Results for this | | | e | 11:15 AM | examination | procedure are in the | | | | PDT | Osteoarthrosis, hip | results section. | | | | | Ankylosing | | | | | | spondylitis (HCC) | | + +--------+ + + + | CULTURE, NASAL BACTI | Routin | 03/02/2013 | Preoperative | Results for this | | | e | 11:15 AM | examination | procedure are in [...] documented in this encounter Results HEMOGLOBIN A1C, POC (03/02/2013 11:27 AM PDT) + +---------+ + + + | Component | Value | Ref Range | Performed | Pathologist | | | | | At | Signature | + +---------+ + + + | HEMOGLOBIN | 7.3 (H) | 4.0 - 5.7 % | [facility] - | | | A1C,POC | | | E[facility] | | | | | [...] + | [facility] | [address] | [place], [place] | | | JOI POINT OF CARE | [address] | [address] | | | TESTS | | | | + + + + + CBC (03/02/2013 11:16 AM PDT) + +-------+ + + + | Component | Value | Ref Range | Performed | Pathologist | | | | | At | Signature | + +-------+ + + + | WBC COUNT | 7.9 | 4.4 - 11.0 K/cu | [facility] | | | | | mm | LABORATORY | | | | | | SERVICES, | | | | | | CORE | | + +-------+ + + + | RED CELL | 5.21 | 4.50 - 5.90 | [facility] | | | COUNT | | M/cu mm | LABORATORY | | | | | | SERVICES, | | | | | | CORE | | + +-------+ + + + | HEMOGLOBIN | 15.4 | 13.5 - 17.5 | [facility] | | | | | g/dL | LABORATORY | | | | | | SERVICES, | | | | | | CORE | | + +-------+ + + + | HEMATOCRIT | 45.6 | 41.0 - 53.0 % | [facility] | | | | | | LABORATORY | | | | | | SERVICES, | | | | | | CORE | | + +-------+ + + + | MCV | 87.6 | 80.0 - 96.0 fL | [facility] | | | | | | LABORATORY | | | | | | SERVICES, | | | | | | CORE | | + +-------+ + + + | MCHC | 33.7 | 33.4 - 35.5 | [facility] | | | | | g/dL | LABORATORY | | | | | | SERVICES, | | | | | | CORE | | + +-------+ + + + | RDW | 14.6 | 11.5 - 15.0 % | [facility] | | | | | | LABORATORY | | | | | | SERVICES, | | | | | | CORE | | + +-------+ + + + | PLATELET | 237 | 150 - 400 K/cu | [facility] [...] + | [facility] | [address] | [place] [address] | | | SERVICES, CORE | [address] | | | + + + + + COMPLETE METABOLIC SET (NA,K,CL,CO2,BUN,CREAT,GLUC,CA,AST,ALT,BILI TOTAL,ALK PHOS,ALB,PROT TOTAL) (03/02/2013 11:16 AM PDT) + +---------+ + + + | Component | Value | Ref Range | Performed | Pathologist | | | | | At | Signature | + +---------+ + + + | GLUCOSE, | 112 (H) | 60 - 99 mg/dL | [...] | | | LABORATORY | | | [facility] | | | SERVICES, | | | [...] +---------+ + + + | POTASSIUM, | 4.6 | 3.4 - 5.0 | [facility] | | | PLASMA | | mmol/L | LABORATORY | | | (LAB) | | | SERVICES, | | | | | | CORE | | + +---------+ + + + | CHLORIDE, | 103 [...] +---------+ + + + | CALCIUM, | 9.7 | 8.6 - 10.2 | [facility] | | | PLASMA | | mg/dL | LABORATORY | | | (LAB) | | | SERVICES, | | | | | | CORE | | + +---------+ + + + | BILIRUBIN | 0.7 | 0.3 - 1.2 mg/dL | [facility] | | | TOTAL | | | LABORATORY | | | | | | SERVICES, | | | | | | CORE | | + +---------+ + + + | TOTAL | 8.4 (H) | 6.4 - 8.2 g/dL | [facility] | | | PROTEIN, | | | LABORATORY | | | PLASMA | | | SERVICES, | | | (LAB) | | | CORE | | + +---------+ + + + | ALBUMIN, | 3.9 | 3.5 - 4.7 g/dL | [facility] | | | PLASMA | | | LABORATORY | | | (LAB) | | | SERVICES, | | | | | | CORE | | + +---------+ + + + | ALK PHOS | 94 | 56 - 119 U/L | [facility] | | | | | | LABORATORY | | | | | | SERVICES, | | | | | | CORE | | + +---------+ + + + | AST(SGOT) | 33 | 15 - 41 U/L | [facility] [...] +---------+ + + + | ANION | 10 [...] the MDRD equation recommended by the | [facility] | | National Kidney Disease Education Program. Estimated GFR | LABORATORY | | Interpretive Information: <60 mL/min/1.73 sq | SERVICES, [facility] | | m Chronic Kidney Disease <15 [...] | + + + + + | [facility] | [address] | [place] [address] | | | SERVICES, CORE | [address] | | | + + + + + ANTIBODY SCREEN (03/02/2013 11:15 AM PDT) + + + + + [...] [facility] | [address] | [place] [address] | | | SERVICES, | [address] | | | | TRANSFUSION MEDICINE | | | | + + + + + ABO & RH TYPE (03/02/2013 11:15 AM PDT) + + + + + [...] [facility] | [address] | [place] [address] | | | SERVICES, | [address] | | | | TRANSFUSION MEDICINE | | | | + + + + + CULTURE, NASAL BACTI (03/02/2013 11:15 AM PDT) + + + + + [...] | AIRPORT - | | | | GRAM | | [place] | | | | STAIN:No Methicillin | | | | | | resistant Staphylococcus | | | | | | aureus isolated No | | | | | | Methicillin susceptible | | | | | | [...] + | [facility] - | [address] | [place] [address] | | | [place] | | | | + + + + + 12 LEAD ECG (03/02/2013 11:06 AM PDT) [...] CRABTREE | | | | | | ([id number]) on 03/04/2013 | | | | | | 7:58:54 AM | | | | + + + + + + + + | Specimen | + + | | + + + + + | Narrative | Performed At | + + + | Please click | [facility] | | on view image for the detailed interpretation from [facility] results. | CARDIOLOGY | + + + + + | Procedure Note | + + | Interface, Cardiology Results - 03/04/2013 8:00 AM PDT Please click on view image | | for the detailed interpretation from [facility] results. | + + + + + + + | Performing | Address | City/State/Zipcode | Phone Number | | Organization | | | | + + + + + | [facility] | [address] | [place], [place] | | | CARDIOLOGY | [address] | [address] | | + + + + + documented in this encounter Visit Diagnoses + + | Diagnosis | + + | Preoperative examination - Primary Preoperative examination, unspecified | + + | Osteoarthrosis, hip Localized osteoarthrosis not specified whether primary or | | secondary, pelvic region and thigh | + + | Ankylosing spondylitis (HCC) Ankylosing spondylitis | + + | Other specified pre-operative examination | + + documented in this encounter
--- OUTSIDE RECORDS SUMMARY | ~2019-01-28 | XMS | Encounter Summary ---
Demographics + + + | Address | [address] | | | [place] [address] | + + + | Home Phone [...] + + + | Author | [facility] | + + + | Organization | [facility] | + + + | Address [...] Team Providers + +------+ + | Care Orthopedic Podiatrist Name | Role | Phone | + [...] | [facility] [address] | GLOVE OPERATOR [address] | monitoring | | | | [facility] | [facility] | | | | | [facility] | [place], [place] | | | | | [address] | [address] | | | | | [facility] | [phone] | | | | | [facility] [place] | | | | | | [address] | | | | | | [phone] | | | +--------+ + + + [...]
--- OUTSIDE RECORDS SUMMARY | ~2019-01-28 | XMS | Encounter Summary ---
Demographics + + + | Address | [address] | | | [place] [address] | + + + | Home Phone [...] Team Providers + +------+ + | Care Cash Controller Name | Role | Phone | [...] Smith MD | RT Clinical | | 2014 | on | at [facility] [address] | [address] | Treatment Planning | | | | [address] | [place], | Note | | | | Meliza Ibarra | [place] [address] | | | | | [place], | [phone] | | | | | [place] [address] | | | | | | [phone] | | | +--------+ + + + [...]
--- OUTSIDE RECORDS SUMMARY | ~2019-01-28 | XMS | Encounter Summary ---
Demographics + + + | Address | [address] | | | [place] [address] | + + + | Home Phone [...] Team Providers + +------+ + | Care Pump Assembler Name | Role | Phone | + [...] | | | M[facility] Floor Day | [facility] | Ankylosing | | | | Stay [address] | [place], [place] | spondylitis (HCC); | | | | [facility] | [address] | Other specified | | | | Mailcode: [id number] | [phone] | pre-operative | | | | [facility] | | examination | | | | [address] [place] [address] | | | | | | [address] | | | | | | [phone] | | | +--------+---------+ + + + [...] PM please call your surgeons' office for [id number]. PARKING Parking for patients and visitors is available in the [facility] Parking structure located across from the emergency department. Patient parking is available on level 1 and 3. [employer] d parking is available on the top [...] ADVICE FOR DAY OF SURGERY: Remove nail malaysian from at least one fingernail (if applicable) [...] take place on the hill at the [facility]: Surgeries scheduled in the [facility] ( [facility]): registration is located on the 4th floor of [facility] (Day Surgery). Surgeries scheduled in the [facility]: registration is located on the 9th floor . For surgeries scheduled to take place at the [facility] & [facility]: registration i s located on the 4th floor (Surgery Center). AVOID THESE MEDICATIONS FOR 7 DAYS BEFORE SURGERY PRODUCTS CONTAINING ASPIRIN Angeli[place], Anacin, Anexsia with Codeine, Shun nos, Aspirin, Aspirin suppositories, Ascri ptin, Aspergum, Axotal, B-A-C, Baby Aspirin, Raji, BC Powder, Bexophene, Buffaprin, Bufferi n, Buffinol, Cama-Arthritis Strength, Congespirin, Mccoll, Coricidin, Damason, Darvon, Dristan , Hilaria-Gesic, Digel, Dolprin #3 Tablets, Donatab, Doxaphene, Duragesic, Easprin, Ecotrin, Monalisa grin Forte, Emiprin, Emprazil, Equagesic, Equazine M, Excedrin, Fiogesic, Fiorgen PH, Fioric et, Fiorinal, 4-Way Cold Tablet Gemnisyn, Indocin, Liquprin, Lortab ASA, Magnaprin, Marnal, Meprobamate, Midol, Momentum, N orgesic, Sidney, Orphengesic, Pabalate, P-A-C, Percodan, Presalin, Robaxasil, Roxiprin, Tuan eto, Salocol SK-65 Compound, Sine-Aid, Sine-Off,, Spalding, Supac, Talwin Compound, Trigesic, Tolectin , Traiminicin, Vanquish, ZORprin, Zomax PRODUCTS CONTAINING IBUPROFEN Advil, Aleve, Haltran, Medipren, Midol, Motrin, Naproxyn, Nuprin, Rufen OTHER PRODUCTS WHICH MAY PROMOTE BLEEDING Vitamin E, Gingko Biloba, Marine Fatty Acids, [place]-3 Fish Oil Supplements documented in this encounter [...] hat after his surgery for diverticulitis at [facility] he had an episode of tachycardia post [...] no Rate of cardiac , non fatal HI, non fatal cardiac arrest 0 risk factors [...] to this patient's care. EMPERATRIZ DOLAN MD [facility] PRE[facility]IVE MEDICINE CLINIC [address] [facility] [address] documented in this e ncounter Plan of Treatment + + +--------+ + + | Name | Type | Priori | Associated Diagnoses | Order Schedule | | | | ty | | | + + +--------+ + + | [place] COLLECTION VENOUS | Procedures | Routin | [...] RLB (Airport | | | Way Lab) [facility] [place] [address] [address] | | [place] [address] | | + + + + + + + + | Performing | Address | City/State/Zipcode | Phone Number | | Organization | | | | + + + + + | [facility] | [address] | [place] [address] | | | LABORATORY | | | [...] | + + + + + | [facility] | [address] | [place] [address] | | | PATHOLOGY | [address] [...] | | | DEPARTMENT | | | PALESTINIAN | | | OF | | | [...] | + + + + + | [facility] | [address] | [place] [address] | | | PATHOLOGY | [address] [...] | + + + + + | [facility] | [address] | [place] [address] | | | PATHOLOGY | [address] [...] DEPT OF | [address] | [place], [place] | | | CARDIOLOGY | [address] | [address] | | + + + + + [...]
--- OUTSIDE RECORDS SUMMARY | ~2019-01-28 | XMS | Encounter Summary ---
Demographics + + + | Address | [address] | | | [place] [address] | + + + | Home Phone [...] Team Providers + +------+ + | Care Data Warehouse Manager Name | Role | Phone | + +------+ + | Gracie Mariano MD | PCP | Unavailable | + +------+ + Encounter Details +--------+ + + + + | Date | Type | Department | Care Team | Description | +--------+ + + + + | 11/10/ | Hospital | Radiology/Imaging | | | | 2015 | Encounter | Lab at [facility] [address] | | | | | | João Myrick Mailcode: | | | | | | [address] | | | | | | [facility], | | | | | | [facility] Floor [place], | | | | | | [place] [address] | | | | | | [phone] | | | +--------+ + + + [...]
--- OUTSIDE RECORDS SUMMARY | ~2019-01-28 | XMS | Encounter Summary ---
Demographics + + + | Address | [address] | | | [place] [address] | + + + | Home Phone [...] Team Providers + +------+ + | Care Windows Administrator Name | Role | Phone | [...] | | | | | is, | [facility] | [place] | | | | | unspecified | & Fract[address] | [address] [place], | | | | | whether | [address] | [place] | | | | | generalized | [address] | [address] | | | | | or | [place], | Phone: | | | | | localized, | [place] [address] | [phone] | | | | | pelvic | Phone: | Fax: | | | | | region and | [phone] | [phone] | | | | | thigh | Fax: | | | | | | Procedures | [phone] | | | | | | REQUEST TO | | | | | | | SURGERY | | | | | | | ACCOUNTANT BUDGET | | | | | | | [facility] | | | | | | | | | | | | | | ARTHROPLASTY | | | | | | | [facility] | | | | | | | [...] | (Primary Dx); | | | | [facility] | [facility] | 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 JORGE SMART MD [facility] [address] [facility] Mailcode: [id number] [place] [id number] Ino Andrews MD - 04/26/2014 10:18 AM [...] to distance travelled [place] Wil[place] p [id number] documented in this enc ounter Plan of [...] | | + +---------+ + + | [facility] DEPARTMENT OF | | | | [...]
--- OUTSIDE RECORDS SUMMARY | ~2019-01-28 | XMS | Encounter Summary ---
Demographics + + + | Address | [address] | | | [place] [address] | + + + | Home Phone [...] Author + + + | Author | [facility] | + + + | Organization | [facility] | + + + | [...] Team Providers + +------+ + | Care Review Engineer Name | Role | Phone | [...] 03/02/ | Office | Preoperative | [place], | Preoperative | | 2012 | Visit | Medicine Clinic at | MD Steven Vang | examination (Primary | | | | [facility] Floor Day | [facility] [address] | Dx); | | | | Stay [address] | [place], [place] | Osteoarthrosis, hip; | | | | [facility] | [address] | 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 Surgery Check in Locations Admitting [facility] Surgery Check in Time: The [...] is after office hours, call the [facility] asphalt paving machine operator at [phone] and ask them to page him or h er. Preparing For Your Surgery Video -- 7 minutes of instructions! Access the [facility] website [email or web address] --> POPULAR RESOURCES --> Patient Guide [...] his last visit in our clinic (05/03/2012 [facility] Aneesh Montemayor before his left hip [...] to this patient's care. EMPERATRIZ TIJERINA MD [facility] [address] [facility] [address] I spent 40 minutes with the patient. [...] | + +--------+ + + + | MA COLLECTION VENOUS | Routin | 03/02/2013 | [...] - ELLIE | [address] | [place], [place] | | | JOI POINT OF CARE | [address] | [address] | | | TESTS | | | [...] [facility] | [address] | [place] [address] | | | SERVICES, CORE | PARK [...] | | | LABORATORY | | | THAI | | | SERVICES, | | | [...] the MDRD equation recommended by the | [facility] | | National Kidney Disease Education Program. Estimated GFR | LABORATORY | | Interpretive Information: <60 mL/min/1.73 sq | SERVICES, [facility] | | m Chronic Kidney Disease <15 [...] + + + + + | [facility] | [address] | [place] [address] | | | SERVICES, CORE | PARK [...] [facility] | [address] | [place] [address] | | | SERVICES, | [address] [...] [facility] | [address] | [place] [address] | | | SERVICES, | [address] [...] | | | | GRAM | | [place] | | | | STAIN:No Methicillin | [...] + | [facility] - | [address] | [place] [address] | | | [place] | | | | + + + [...] CRABTREE | | | | | | (0954) on 03/04/2013 | | | | | | 7:58:54 AM | | | | + + + + + + + + | Specimen | + + | | + + + + + | Narrative | Performed At | + + + | Please click | [facility] | | on view image for the detailed interpretation from [employer] results. | CARDIOLOGY | + + + + + | Procedure Note | + + | Interface, Cardiology Results - 03/04/2013 8:00 AM PDT Please click on view image | | for the detailed interpretation from [employer] results. | + + + + + + + | Performing | Address | City/State/Zipcode | Phone Number | | Organization | | | | + + + + + | [facility] | [address] | [place], [place] | | | CARDIOLOGY | [address] | [address] | | + + + + + [...]
--- OUTSIDE RECORDS SUMMARY | ~2019-01-28 | XMS | Encounter Summary ---
Demographics + + + | Address | [address] | | | [place] [address] | + + + | Home Phone [...] Team Providers + +------+ + | Care Flooring Salesperson Name | Role | Phone | + [...] | +--------+ + + + + | 05/09/ | Hospital | [facility] [address] | Rosa M Smart MD | | | 2011 - | Encounter | [address] | [address] [facility] | | | | | [place] | [address] | | | 05/12/ | | [place] [address] | [place], [place] | | | 2011 | | [phone] | [address] | | | | | | [phone] | | | | | | | [...] + + + | Blood Pressure | 133/67 | 05/12/2012 3:31 PM | | | | | PDT | | + + + + + | Pulse | 81 | 05/12/2012 3:31 PM | | | | | PDT | | + + + + + | Temperature | 36.9 C (98.4 F) | 05/12/2012 3:31 PM | | | | | PDT | | + + + + + | Respiratory Rate | 16 | 05/12/2012 3:31 PM | | | | | PDT | | + + + + + | Oxygen Saturation | 98% | 05/12/2012 3:31 PM | | | | | PDT | | + + + + + | Inhaled Oxygen | - | - | | | Concentration | | | | + + + + + | Weight | 115.7 kg (255 lb 1.2 | 05/09/2012 8:33 AM | | | | oz) | PDT | | + + + + + | Height | 165.1 cm (5' 5") | 05/09/2012 8:33 AM | | | | | PDT | | + + + + + | Body Mass Index | 42.45 | 05/09/2012 8:33 AM | | | | | PDT | | + + + + + documented in this encounter Discharge Summaries Wilian Rosado, Gifty Hodge - 05/10/2012 11:08 AM PDT INPATIENT PHYSICIAN DISCHARGE SUMMARY Attending Physician: Rosa M Smart MD PCP: Gracie Mariano MD Admission Date: 05/09/2012 Discharge Date: 05/12/2012 Diagnoses Principal Final Diagnosis: 1. Left hip DJD and ankylosis Additional Diagnoses: 1. Ankylosing spondylitis 2. Antiphospholipid antibody syndrome Procedures 1. Left total hip arthroplasty 05/09/2012 Reason For Admission: Perioperative care Hospital Course: 61 y/o M with ankylosing spondylitis underwent left total hip arthroplasty 05/09/2012 for hi s left hip DJD and ankylosis. He received 24 hours IV antibiotics for infectious prophylaxi s, and was started back on his coumadin therapy for DVT prophylaxis in the setting of antiph ospholipid antibody syndrome. The radiation oncology service provided prophylactic radiatio n to prevent heterotopic ossification. He mobilized slowly with physical therapy, and was d ischarged in good condition when he was comfortable and medically stable. Current Discharge Medication List START taking these medications Details enoxaparin 40 mg/0.4 mL Subcutaneous Syringe Inject 0.4 mL under the skin (SUBC) once daily at noon. Qty: 7 Syringe, Refills: 0 morphine 15 mg Oral tablet Take 1 Tab by mouth every four hours as needed for severe pain. Qty: 200 Tab, Refills: 0 CONTINUE these medications which have CHANGED or have new prescriptions Details morphine ER 60 mg Oral tablet extended release Take 1 Tab by mouth every twelve hours. Qty: 90 Tab, Refills: 0 CONTINUE these medications which have NOT CHANGED Details Cholecalciferol, Vitamin D3, 5,000 unit Oral capsule Take 5,000 Units by mouth once daily. clotrimazole 1 % Topical Cream Apply to affected area two times daily. Apply to affected a grisel for 7 consecutive days. cyclobenzaprine 10 mg Oral tablet Take 10 mg by mouth as needed. Do not use longer than 2-3 weeks. hydrocortisone 1 % Topical Cream Apply to affected area as needed. Apply a thin film to cl mai, dry skin and rub in gently. levothyroxine 50 mcg Oral tablet Take 50 mcg by mouth once daily. lisinopril 10 mg Oral tablet Take 10 mg by mouth once daily. MEDICAL MARIJUANA once daily. 3.5-7 grams a day metoprolol tartrate 25 mg Oral tablet Take 25 mg by mouth two times daily. quiNINE sulfate (QUALAQUIN) 324 mg Oral capsule Take 324 mg by mouth two times daily. !! warfarin 1 mg Oral tablet Take 1 mg by mouth once daily. !! warfarin 5 mg Oral tablet Take 5 mg by mouth once daily. !! - Potential duplicate medications found. Please discuss with provider. STOP taking these medications Morphine Sulfate 15 mg Oral Capsule Comments: Reason for Stopping: Wound Care - If you have Steri-Strips (paper tape) over your incision, keep the incision covered until there is no discharge on bandage. Do not remove Steri-Strips, they will fall off on their o wn. Trim edges of the Steri-Strips if they start to peel up.- Once wound is closed (no drain age), you may shower. Let water run over wound. Pat dry. Do not scrub or soak wound in water .- Avoid using lotions, powders, oils, or ointments on your incision.- DO NOT let anyone sta rt you on antibiotics if they suspect your wound is infected. Call [facility] Orthopedics first at [phone]. Diet Regular Regular diet- There are no restrictions to your diet. You may eat or drink whatever you pr efer, though healthy food choices are recommended. Activity Weight bear as tolerated on both lower extremities. Restrictions: Posterior hip precautions on operative side (no hip flexion >90 degrees, no c rossing your legs, no turning your foot towards the middle of the body (internal rotation). Destination: Destination: Home Condition on Discharge Good Follow-Up Appointments ORTHOPEDICS OUTPATIENT CLINIC: Follow up in 2 weeks (or as previously scheduled). Call [phone] to confirm or schedule this appointment. PCP: As needed for any medical concerns not related to your surgery. Future Appointments Date & Time Provider Department Dept Phone Center 05/10/2012 2:15 PM Antony Patterson MD [facility] Radiation Medicine [phone] Rad Onc 05/19/2012 8:00 AM Maldonado Ewing PA-C [facility] Orthopaedics & Rehabilitation [phone] [facility] Deep Vein Thrombosis (Leg Blood Clot) Prevention DVT prophylaxis: You are at increased risk of forming a blood clot following your joint replacement. - We have recommended that you take Coumadin following your surgery to decrease this risk. - See discharge prescriptions for administration instructions. - Call Orthopedic Clinic at [phone] if any persistent, localized swelling that does no t improve with time or elevation or if you have any persistent calf pain, shortness of breat h or chest pain. Contact Your Physician When to Call: 1. Difficulty breathing, chest pain or unusual shortness of breath; 2. Excessive bleeding, drainage, redness, swelling at the operative site (if the wound appe ars to be worse instead of better each day); 3. Fevers, chills, increased pain that is not relieved by pain medications; 4. Persistent nausea or vomiting; 5. Other specific concerns; Please call: - during business hours (8:00am - 4:30pm); - if after hours and ask for the orthopaedic surgery resident button spindler. Additional Post-Op Instructions / What to Expect -Apply ice over the surgical site for 20 minutes at a time as needed for pain. -Avoid alcohol and smoking during the healing process. -You may experience numbness that is usually temporary. -There will be bruising and swelling that should improve in the first 2 weeks. -To reduce likelihood of falling at home, remove throw rugs, loose wires or other objects f rom floor and leave some lights on at night. - Elevate your extremity whenever possible to improve pain and swelling. Pain Management - You are advised to not drive, operate heavy equipment, or consume alcohol while on prescr iption narcotic pain medication. - Take a stool softener while taking narcotic pain medication in order to prevent constipat ion. - If you are running out of pain medication and feel that you will need more, call [phone] during business hours in order to get a new prescription. Please allow 48 hours for ref ills to be processed. - Schedule II narcotics can NOT be called in to a pharmacy. Please arrange for someone to p ick up your prescription or allow additional time for our clinic to mail you requested refil l. - On-call (after hours) MDs are not permitted to prescribe narcotic pain medications. - Prescriptions will not be available through our office on weekends or holidays. - Don't take Non-steroidal anti-inflammatory drugs (for example: Ibuprofen/Advil/Aleve) unt il approved by your orthopedic provider. Outstanding labs/studies: none Discharging Physician: GIFTY MORTON MD Attending Physician: Rosa M Smart MD documented in this enc ounter Medications at Time of Discharge + + [...] documented as of this encounter Progress Notes Blanca Cox NP - 05/12/2012 1:26 PM Jimmy CASTILLO Progress Note 05/12/2012 1:26 PM Author BLANCA COX NP Attending Rosa M Smart MD Subjective: Patient agreeable to go to SNF for rehab. Asking when he can get up to take a shower. RN alyson gallegos patient had 3 BMs - did not require mag citrate Objective: Last Vitals: BP 137/54 | Pulse 75 | Temp 36.7 C (98.1 F) | RR 16 | Ht 1.651 m (5' 5") | Wt 115.7 kg (255 lb 1.2 oz) | SpO2 99% | BMI 42.45 kg/(m^2) Physical Exam: Neuro A&Ox3. NAD Chest: non labored, BBS clear, no cough CV: S1, S2 - 3/6 murmur - no gallop or rub Abdomen: obese, soft, non-tender with + BS Operative Site: Left hip dressing is c,d,i. Good ROM and strength in left ankle. + DP in l eft foot. A/P 61 y.o. male s/p Left SUSHIL. 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 H/O DVT/Strokeantiphospholipid syndrome - on coumadin - getting Lovenox bridge INR 1.34 tod ay Chronic pain - (OA, Ankylosing spondylitis) on home doses of long acting opiates - Dispo: Search for SNF underway by CM - patient is ready to dc today pending SNF acceptanc e - all questions answered for patient and he is agreeable to dc to SNF BLANCA COX NP [facility] [address] [facility] [id number] Gifty Gage Md - 05/12/2012 6:23 AM PDT Ortho Progress Note 05/12/2012 Hospital Day #3 POD # 3 s/p L SUSHIL S: Pt still constipated despite laxatives yesterday. Would like to d/c long-acting Mor[place] ne. O: Last Vitals: BP 156/66 | Pulse 83 | Temp 37 C (98.6 F) | RR 16 | Ht 1.651 m (5' 5") | Wt 115.7 kg (255 lb 1.2 oz) | SpO2 97% | BMI 42.45 kg/(m^2) 24 hour Vitals min/max : Temp Av.7 C (98.1 F) Min: 36.4 C (97.5 F) Max: 37 C (98.6 F) Systolic (24hrs), Av mmHg, Min:119 mmHg, Max:165 mmHgDiastolic (24hrs), Av mmHg, M in:61 mmHg, Max:76 mmHgPulse Av.7 Min: 77 Max: 86 SpO2 Av.7 % Min: 95 % Ma x: 98 % Drains: Incisional vac with excellent seal Exam: LLE wwp, sensation and motor function remain distally intact. Dressing removed: incision c lean with minimal s/s at wound. Dry dressing placed. HEMATOCRIT Date Value Range Status 05/11/2012 32.9* 41.0-53.0 (%) Final 05/10/2012 30.3* 41.0-53.0 (%) Final A/P: 61 y/o M with ankylosing spondylitis POD #3 s/p L SUSHIL PT / OT - Weight bearing as tolerated, Posterior hip precautions Dressing - Dry dressing as needed. Ok to remove and shower, no soaking/scrubbing. Keep covered until completely dry. Antibiotics - complete DVT - Bridging to Coumadin with Lovenox, given antiphospholipid antibody syndrome Bowel: - Will write Mag CitrateRadiology - No new Dispo - Discharge to SNF when bed available postoperative day 2-3. Rosa M Cárdenas MD - 05/11/2012 5:57 AM PDT Ortho Progress Note 05/11/2012 Hospital Day #2 POD # 2 s/p L SUSHIL S: Pt mobilizing slowly with PT, feeling comfortable overall. Constipated, passing gas. Received prophylactic radiation yesterday. O: Last Vitals: BP 149/59 | Pulse 79 | Temp 37 C (98.6 F) | RR 16 | Ht 1.651 m (5' 5") | Wt 115.7 kg (255 lb 1.2 oz) | SpO2 97% | BMI 42.45 kg/(m^2) 24 hour Vitals min/max : Temp Av C (98.6 F) Min: 36.7 C (98.1 F) Max: 37.4 C (99.3 F) Systolic (24hrs), Av mmHg, Min:114 mmHg, Max:149 mmHgDiastolic (24hrs), Av mmHg, M in:55 mmHg, Max:69 mmHgPulse Av.3 Min: 66 Max: 96 SpO2 Av.9 % Min: 95 % Ma x: 100 % Drains: Incisional vac with excellent seal and minimal s/s in canister Exam: LLE wwp, sensation intact med/1st web/lat, motor intact ankle and gr toe DF/PF. Incisional vac in good position, kept in place. HEMATOCRIT Date Value Range Status 05/10/2012 30.3* 41.0-53.0 (%) Final 04/28/2012 48.7 41.0-53.0 (%) Final A/P: 61 y/o M with ankylosing spondylitis POD #2 s/p L SUSHIL PT / OT - Weight bearing as tolerated, Posterior hip precautions Dressing - Incisional vac off on day of d/c Antibiotics - Ancef for 24 hours perioperatively DVT - Coumadin for antiphospholipid antibody syndrome Bowel: - Sorbitol written for prn useRadiology - AP pelvis in PACU, reviewed Labs - Postoperative day 1: BMP, CBC; postoperative day 2: CBC, reviewed Diet - Advance diet as tolerated, saline lock IV with sufficient oral intake Dispo - Discharge likely postoperative day 3. Will ask welfare case worker to assess for SNF placem ent. I performed a history and physical examination of the patient and discussed his management with the resident. I reviewed the resident s note and agree with the documented findings and plan of care. ROSA M SMART MD [facility] [address] [facility] [address] uff, Rosa M Paige MD - 0 05/10/2012 5:59 AM PDT Ortho Progress Note 05/10/2012 Hospital Day #1 POD # 1 s/p L SUSHIL S: Pt reports he was sore overnight, but pain rx is working well. O: Last Vitals: BP 113/55 | Pulse 73 | Temp 36.3 C (97.3 F) | RR 16 | Ht 1.651 m (5' 5 ") | Wt 115.7 kg (255 lb 1.2 oz) | SpO2 100% | BMI 42.45 kg/(m^2) 24 hour Vitals min/max : Temp Av.4 C (97.6 F) Min: 36.3 C (97.3 F) Max: 36.7 C (98.1 F) Systolic (24hrs), Av mmHg, Min:113 mmHg, Max:164 mmHgDiastolic (24hrs), Av mmHg, M in:55 mmHg, Max:80 mmHgPulse Av.9 Min: 61 Max: 98 SpO2 Av.2 % Min: 95 % Ma x: 100 % Drains: Incisional wound vac with excellent seal and minimal drainage in canister Exam: LLE wwp, 2+ DP and PT, sensation intact med/1st web/lat, motor intact ankle and gr toe DF/P F. Dressing c/d/i, kept in place. HEMATOCRIT Date Value Range Status 05/10/2012 30.3* 41.0-53.0 (%) Final 04/28/2012 48.7 41.0-53.0 (%) Final A/P: 61 y/o M with ankylosing spondylitis POD #1 s/p L SUSHIL PT / OT - Weight bearing as tolerated, Posterior hip precautions Dressing - Incisional wound vac off on day of d/c Drain - Discontinue george catheter on postoperative day #1. Antibiotics - Ancef for 24 hours perioperatively DVT - Pt on lifetime Coumadin for antiphospholipid antibody syndrome, restarting Bowel: - If no BM by postoperative day #2, then consider suppository vs Mag Citrate if sym ptomatic. No discharge until BM.Radiology - AP pelvis in PACU, reviewed--hardware in good position Labs - Postoperative day 1: BMP, CBC; postoperative day 2: CBC, ordered Diet - Advance diet as tolerated, saline lock IV with sufficient oral intake Consults - Pain Service for block Dispo - Discharge to home postoperative day 2-3. I performed a history and physical examination of the patient and discussed his management with the resident. I reviewed the resident s note and agree with the documented findings and plan of care. ROSA M SMART MD [facility] [address] [facility] [address] uRosa M coffey MD - 0 05/09/2012 6:14 PM PDT Ortho Progress Note 05/09/2012 Hospital Day #0 POD # 0 s/p L SUSHIL S: Pt having problems with balancing adequate pain relief and desaturations, currently fee ling better and with continuous pulse ox in place. O: Last Vitals: BP 151/65 | Pulse 66 | Temp 36.4 C (97.5 F) | RR 14 | Ht 1.651 m (5' 5 ") | Wt 115.7 kg (255 lb 1.2 oz) | SpO2 100% | BMI 42.45 kg/(m^2) 24 hour Vitals min/max : Temp Av.4 C (97.6 F) Min: 36.3 C (97.3 F) Max: 36.7 C (98.1 F) Systolic (24hrs), Av mmHg, Min:131 mmHg, Max:164 mmHgDiastolic (24hrs), Av mmHg, M in:55 mmHg, Max:80 mmHgPulse Av.1 Min: 61 Max: 98 SpO2 Av.9 % Min: 95 % Ma x: 100 % Drains: Incisional wound vac with excellent seal, no drainage in canister Exam: LLE wwp, sensation intact med/1st web/lat, motor intact ankle and gr toe DF/PF. Incisional vac in good position, kept intact. HEMATOCRIT Date Value Range Status 04/28/2012 48.7 41.0-53.0 (%) Final 02/19/2011 46.9 41.0-53.0 (%) Final A/P: 61 y/o M POD #0 s/p L SUSHIL PT / OT - Weight bearing as tolerated, Posterior hip precautions Dressing - Incisional vac off on day of d/c. Drain - Discontinue postoperative day #1 unless high output. Discontinue george catheter o n postoperative day #1. Antibiotics - Ancef for 24 hours perioperatively DVT - - Pt on lifelong Coumadin for antiphospholipid antibody syndrome, will restart as a ppropriate with nerve block. Lovenox 40 mg daily to bridge Bowel: - If no BM by postoperative day #2, then consider suppository vs Mag Citrate if sym ptomatic. No discharge until BM.Radiology - AP pelvis in PACU, reviewed: hardware in good position Labs - Postoperative day 1: BMP, CBC; postoperative day 2: CBC, ordered Diet - Advance diet as tolerated, saline lock IV with sufficient oral intake Consults - Pain Service for block Dispo - Discharge postoperative day 2-3. No plan for home PT. Other - Consult placed for radiation oncology service to provide prophylactic radiation fo r heterotopic ossification in the setting of ankylosing spondylitis. I performed a history and physical examination of the patient and discussed his management with the resident. I reviewed the resident s note and agree with the documented findings and plan of care. ROSA M SMART MD [facility] [address] [facility] [address] documented in this enc ounter Plan of Treatment Not on filedocumented as of this encounter Procedures + +--------+ + + + | Procedure Name | Priori | Date/Time | Associated Diagnosis | Comments | | | ty | | | | + +--------+ + + + | PROCEDURE NOTE | Routin | 09/27/2015 | | Results for this | | | e | 1:11 AM | | procedure are in the | | | | PST | | results section. | + +--------+ + + + | CAPILLARY BLOOD | Routin | 05/12/2012 | | Results for this | | GLUCOSE (NO CHG), | e | 3:47 PM | | procedure are in the | | POC | | PDT | | results section. | + +--------+ + + + | CAPILLARY BLOOD | Routin | 05/12/2012 | | Results for this | | GLUCOSE (NO CHG), | e | 10:00 AM | | procedure are in the | | POC | | PDT | | results section. | + +--------+ + + + | INR | Routin | 05/12/2012 | | Results for this | | | e | 5:03 AM | | procedure are in the | | | | PDT | | results section. | + +--------+ + + + | CAPILLARY BLOOD | Routin | 05/12/2012 | | Results for this | | GLUCOSE (NO CHG), | e | 1:46 AM | | procedure are in the | | POC | | PDT | | results section. | + +--------+ + + + | CAPILLARY BLOOD | Routin | 05/11/2012 | | Results for this | | GLUCOSE (NO CHG), | e | 7:54 PM | | procedure are in the | | POC | | PDT | | results section. | + +--------+ + + + | CAPILLARY BLOOD | Routin | 05/11/2012 | | Results for this | | GLUCOSE (NO CHG), | e | 2:12 PM | | procedure are in the | | POC | | PDT | | results section. | + +--------+ + + + | CAPILLARY BLOOD | Routin | 05/11/2012 | | Results for this | | GLUCOSE (NO CHG), | e | 8:19 AM | | procedure are in the | | POC | | PDT | | results section. | + +--------+ + + + | INR | Routin | 05/11/2012 | | Results for this | | | e | 4:45 AM | | procedure are in the | | | | PDT | | results section. | + +--------+ + + + | CBC ONLY | Urgent | 05/11/2012 | | Results for this | | | | 4:45 AM | | procedure are in the | | | | PDT | | results section. | + +--------+ + + + | CAPILLARY BLOOD | Routin | 05/10/2012 | | Results for this | | GLUCOSE (NO CHG), | e | 10:08 PM | | procedure are in the | | POC | | PDT | | results section. | + +--------+ + + + | CAPILLARY BLOOD | Routin | 05/10/2012 | | Results for this | | GLUCOSE (NO CHG), | e | 5:57 PM | | procedure are in the | | POC | | PDT | | results section. | + +--------+ + + + | CAPILLARY BLOOD | Routin | 05/10/2012 | | Results for this | | GLUCOSE (NO CHG), | e | 5:18 PM | | procedure are in the | | POC | | PDT | | results section. | + +--------+ + + + | OPERATION RECORD | | 05/10/2012 | | Results for this | | | | 11:16 AM | | procedure are in the | | | | PDT | | results section. | + +--------+ + + + | CAPILLARY BLOOD | Routin | 05/10/2012 | | Results for this | | GLUCOSE (NO CHG), | e | 7:07 AM | | procedure are in the | | POC | | PDT | | results section. | + +--------+ + + + | INR | Routin | 05/10/2012 | | Results for this | | | e | 5:07 AM | | procedure are in the | | | | PDT | | results section. | + +--------+ + + + | BASIC METABOLIC SET | Urgent | 05/10/2012 | | Results for this | | (NA, K, CL, TCO2, | | 5:07 AM | | procedure are in the | | BUN, CR, GLU, CA) | | PDT | | results section. | + +--------+ + + + | CBC ONLY | Urgent | 05/10/2012 | | Results for this | | | | 5:07 AM | | procedure are in the | | | | PDT | | results section. | + +--------+ + + + | CAPILLARY BLOOD | Routin | 05/09/2012 | | Results for this | | GLUCOSE (NO CHG), | e | 9:22 PM | | procedure are in the | | POC | | PDT | | results section. | + +--------+ + + + | X-RAY PORTABLE | Urgent | 05/09/2012 | | Results for this | | PELVIS 1 VIEW | | 5:08 PM | | procedure are in the | | | | PDT | | results section. | + +--------+ + + + | CAPILLARY BLOOD | Routin | 05/09/2012 | | Results for this | | GLUCOSE (NO CHG), | e | 4:01 PM | | procedure are in the | | POC | | PDT | | results section. | + +--------+ + + + | TOTAL HIP | Electi | 05/09/2012 | Localized | | | ARTHROPLASTY | ve | 11:50 AM | osteoarthrosis not | | | | Surgic | PDT | specified whether | | | | al | | primary or | | | | | | secondary, pelvic | | | | | | region and thigh | | | | | | Ankylosing | | | | | | spondylitis (HCC) | | + +--------+ + + + | PEDIATRIC PERFUSION | | 05/09/2012 | | Results for this | | | | 12:00 AM | | procedure are in the | | | | PDT | | results section. | + +--------+ + + + documented in this encounter Results PROCEDURE NOTE (09/27/2015 1:11 AM PST) + + | Transcriptions | + + | Other, Faculty - 05/18/2012 1:47 PM PDT | + + CAPILLARY BLOOD GLUCOSE, POC (05/12/2012 3:47 PM PDT) + +---------+ + + + [...] + | [facility] | [address] | [place], [place] | | | [facility] | [address] | [address] | | | TESTS | | | | + + + + + CAPILLARY BLOOD GLUCOSE, POC (05/12/2012 10:00 AM PDT) + +---------+ + + + | Component | Value | Ref Range | Performed | Pathologist | | | | | At | Signature | + +---------+ + + + | BLOOD | 158 (H) | 60 - 99 mg/dL | [facility] | | | GLUCOSE, | | | [facility] | | | POC | | | [place] | | | | | | [...] | [facility] | [address] | [place], [place] | | | [facility] | [address] | [address] | | | TESTS | | | | + + + + + INR (05/12/2012 5:03 AM PDT) + + + + + + | Component | Value | Ref Range | Performed | Pathologist | | | | | At | Signature | + + + + + + | INR | 1.34 (H)Comment: | 0.90 - 1.20 INR | [...] + + + + + | [facility] DEPARTMENT | [address] | [place] [address] | | | PATHOLOGY | [address] | | | + + + + + CAPILLARY BLOOD GLUCOSE, POC (05/12/2012 1:46 AM PDT) + +---------+ + + + | Component | Value | Ref Range | Performed | Pathologist | | | | | At | Signature | + +---------+ + + + | BLOOD | 216 (H) | 60 - 99 mg/dL | [facility] - | | | GLUCOSE, | [...] | [facility] | [address] | [place], [place] | | | [facility]ARE | [address] | [address] | | | TESTS | | | | + + + + + CAPILLARY BLOOD GLUCOSE, POC (05/11/2012 7:54 PM PDT) + +---------+ + + + [...] [facility] | [address] | [place], [place] | | | [facility] [place] [facility] CARE | [address] | [address] | | | TESTS | | | | + + + + + CAPILLARY BLOOD GLUCOSE, POC (05/11/2012 2:12 PM PDT) + +---------+ + + + | Component | Value | Ref Range | Performed | Pathologist | | | | | At | Signature | + +---------+ + + + | BLOOD | 137 (H) | 60 - 99 mg/dL | [...] [facility] | [address] | [place], [place] | | | [facility] CARE | [address] | [address] | | | TESTS | | | | + + + + + CAPILLARY BLOOD GLUCOSE, POC (05/11/2012 8:19 AM PDT) + +---------+ + + + | Component | Value | Ref Range | Performed | Pathologist | | | | | At | Signature | + +---------+ + + + | BLOOD | 177 (H) | 60 - 99 mg/dL | [...] + + + | [facility] | [address] | [place], [place] | | | [facility] | [address] | [address] | | | TESTS | | | | + + + + + INR (05/11/2012 4:45 AM PDT) + + + + + + | Component | Value | Ref Range | Performed | Pathologist | | | | | At | Signature | + + + + + + | INR | 1.21 (H)Comment: | 0.90 - 1.20 INR | [...] + + + + + | [facility] | [address] | [place] [address] | | | PATHOLOGY | [address] | | | + + + + + CBC ONLY (05/11/2012 4:45 AM PDT) + + + + + + | Component | Value | Ref Range | Performed | Pathologist | | | | | At | Signature | + + + + + + | WHITE CELL | 10.0 | 4.4 - 11.0 K/cu | [facility] | | | COUNT | | mm | DEPARTMENT | | | | | | OF | | | | | | PATHOLOGY | | + + + + + + | RED CELL | 3.91 (L) | 4.50 - 5.90 | [facility] | | | COUNT | | M/cu mm | DEPARTMENT | | | | | | OF | | | | | | PATHOLOGY | | + + + + + + | HEMOGLOBIN | 11.1 (L) | 13.5 - 17.5 | [facility] | | | | | g/dL | DEPARTMENT | | | | | | OF | | | | | | PATHOLOGY | | + + + + + + | HEMATOCRIT | 32.9 (L) | 41.0 - 53.0 % | [facility] | | | | | | DEPARTMENT | | | | | | OF | | | | | | PATHOLOGY | | + + + + + + | MCV | 84.2 | 80.0 - 96.0 fL | [facility] | | | | | | DEPARTMENT | | | | | | OF | | | | | | PATHOLOGY | | + + + + + + | MCHC | 33.7 | 33.4 - 35.5 | [facility] | | | | | g/dL | DEPARTMENT | | | | | | OF | | | | | | PATHOLOGY | | + + + + + + | RDW | 15.4 (H) | 11.5 - 15.0 % | [...] + + + + + | [facility] DEPARTMENT | [address] | [place] [address] | | | PATHOLOGY | [address] | | | + + + + + CAPILLARY BLOOD GLUCOSE, POC (05/10/2012 10:08 PM PDT) + +---------+ + + + | Component | Value | Ref Range | Performed | Pathologist | | | | | At | Signature | + +---------+ + + + | BLOOD | 186 (H) | 60 - 99 mg/dL | [facility] - | | | GLUCOSE, | [...] [facility] | [address] | [place], [place] | | | [facility] OF CARE | [address] | [address] | | | TESTS | | | | + + + + + CAPILLARY BLOOD GLUCOSE, POC (05/10/2012 5:57 PM PDT) + +---------+ + + + [...] | [facility] | [address] | [place], [place] | | | [facility] | [facility] | [address] | | | TESTS | | | | + + + + + CAPILLARY BLOOD GLUCOSE, POC (05/10/2012 5:18 PM PDT) + +---------+ + + + [...] + | [facility] | [address] | [place], [place] | | | [facility] | [address] | [address] | | | TESTS | | | | + + + + + OPERATION RECORD (05/10/2012 11:16 AM PDT) + + | Transcriptions | + + | Rosa M Smart MD - 05/10/2012 7:13 AM PDT [id number] | | [id number] CISNER[address] JORGE L | | [id number] Date: 05/09/2012 Attending Surgeon: Rosa M | | Melinda Smart M.D. Director Of Midwifery/Staff Midwife(s): Maldonado Ewing PA-C Please note, no | | residents were present or available to assist with thiscase. Preoperative | | Diagnosis(es):1. Ankylosing spondylitis.2. 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 Postoperative Diagnosis(es):1. Ankylosing spondylitis.2. 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 Procedures Performed:1. Left | | total hip arthroplasty with complexity modifier.2. Placement of incisional wound VAC. | | Components:1. Mari Continuum acetabular shell, size 58 mm outer diameter with | | 36 mm inner diameter neutral cross-linked polyethylene liner.2. Mari | | trabecular metal femoral stem, size number 13 with extended offset and a 36, minus | | 3.5 neck length Biolox delta femoral head. Anesthesia:General endotracheal. | | Specimens:None. Complications:None appreciated. Indications:Mr. Cisneros is a 61-year-old | | male with multiple medical problems includingsevere ankylosing spondylitis with complete | | spine involvement and bilateralhip involvement and severe flexion and adduction | | contractures with severeassociated pain. This was also markedly affecting his posture | | andambulatory status. After the appropriate discussion and workup, he electedto undergo | | the above-listed procedure. Procedure:The patient was identified in the preoperative | | holding area, and theincision site marked. The patient was transferred to the operating | | room.General anesthesia was administered. Cefazolin was given as | | antibioticprophylaxis. The patient was placed in the right lateral decubitusposition | | with a hipGRIP. The left hind quadrant and lower extremity wereprepped and draped in a | | sterile and free fashion. A surgical pause wasperformed. Preoperative range of motion | | was assessed. There was a 60 degree flexioncontracture. There was a negative 10 degree | | external rotation contracture.The patient could not adduct beyond approximately 20 | | degrees towardmidline. Surface landmarks were identified, and an incision was made for | | anextensile posterior approach to the hip. The fascia was incised in linewith the skin. | | A Charnley retractor was placed. The gluteal sling wasreleased. There was no | | rotational loud with the femur posterior. Theposterior soft tissues were taken down en | | bloc. Much of the capsule wascompletely ossified further complicating exposure. | | Capsulotomy of theossified portion was made with the osteotome to reveal the femoral | | head.This still could not be further mobilized. We therefore made an in situneck cut | | using a broad osteotome. The femoral head had to be removed in apiecemeal fashion with | | a series of osteotomes and rongeurs. We dideventually shell out the entire femoral head | | and identified the cotyloidfossa. Reaming was begun and carried sequentially up to a | | 57 mm reamer.There was hemispherical bleeding bone at this size. We then press-fit | | thedefinitive cup into place in appropriate position. There was overridingossified | | capsule anteriorly that was debrided carefully with broadosteotome and rongeur. The | | definitive liner was then placed, and attentionreturned to the femur. The femoral neck | | cut was revised based on preoperative templating. Thefemoral canal was entered with a | | box osteotome and canal finder. We thenalternately reamed and broached up to accept a | | size 13 stem. This was inagreement with templating, and there was felt to be good | | torsionalstability. Trial reductions were performed, and we settled on theabove-listed | | head and neck combination. The patient had extra-articularstop to rotation at | | approximately 45 degrees. There was no impingementwith extension and external rotation. | | The anterior soft tissues were notfelt to be tight. Trial components were removed, | | and the definitivecomponents placed. The wound was copiously irrigated with | | pulsatilelavage. The periarticular soft tissues were injected with 0.25% Marcainemixed | | with epinephrine and 30 mg Toradol for hemostasis and postoperativepain control. Due to | | the severe contracture and ossification of much ofthe posterior tissues, no meaningful | | repair was possible. The wound wastherefore again copiously irrigated and then closed | | in layers in asubcuticular fashion. An incisional wound VAC dressing was placed to | | aidwith healing in light of his high BMI near 40 and multiple medicalproblems. The | | patient recovered uneventfully from his anesthetic andtransferred stable to PACU. No | | intraoperative complications wereappreciated. Complexity Addendum:Due to the severe | | ankylosing spondylitis with a complete fusion of the hip,the complexity of the case was | | greatly increased. This was furthercomplicated by the patient's morbid obesity with BMI | | near 40. The [place] [facility] due to the | | complexityof his situation. Overall surgical time was close to 3 times what | | wouldotherwise be expected for this type of procedure. There would also behigher | | anticipated rates of associated morbidity. For all of thesereasons, the complexity | | modifier is warranted. Rosa M Smart M.D.[facility] / [id number] / [id number] / [id number] /D: | | 05/09/2012T: 05/09/2012 | |ambulatory status. After the appropriate discussion and workup, he elected | |to undergo the above-listed procedure. | | | | | |Procedure: | |The patient was identified in the preoperative holding area, and the | |incision site marked. The patient was transferred to the operating room. | |General anesthesia was administered. Cefazolin was given as antibiotic | |prophylaxis. The patient was placed in the right lateral decubitus | |position with a hipGRIP. The left hind quadrant and lower extremity were | |prepped and draped in a sterile and free fashion. A surgical pause was | |performed. | | | | | |Preoperative range of motion was assessed. There was a 60 degree flexion | |contracture. There was a negative 10 degree external rotation contracture. | |The patient could not adduct beyond approximately 20 degrees toward | |midline. | | | | | |Surface landmarks were identified, and an incision was made for an | |extensile posterior approach to the hip. The fascia was incised in line | |with the skin. A Charnley retractor was placed. The gluteal sling was | |released. There was no rotational loud with the femur posterior. The | |posterior soft tissues were taken down en bloc. Much of the capsule was | |completely ossified further complicating exposure. Capsulotomy of the | |ossified portion was made with the osteotome to reveal the femoral head. | |This still could not be further mobilized. We therefore made an in situ | |neck cut using a broad osteotome. The femoral head had to be removed in a | |piecemeal fashion with a series of osteotomes and rongeurs. We did | |eventually shell out the entire femoral head and identified the cotyloid | |fossa. Reaming was begun and carried sequentially up to a 57 mm reamer. | |There was hemispherical bleeding bone at this size. We then press-fit the | |definitive cup into place in appropriate position. There was overriding | |ossified capsule anteriorly that was debrided carefully with broad | |osteotome and rongeur. The definitive liner was then placed, and attention | |returned to the femur. | | | | | |The femoral neck cut was revised based on preoperative templating. The | |femoral canal was entered with a box osteotome and canal finder. We then | |alternately reamed and broached up to accept a size 13 stem. This was in | |agreement with templating, and there was felt to be good torsional | |stability. Trial reductions were performed, and we settled on the | |above-listed head and neck combination. The patient had extra-articular | |stop to rotation at approximately 45 degrees. There was no impingement | |with extension and external rotation. The anterior soft tissues were not | |felt to be tight. Trial components were removed, and the definitive | |components placed. The wound was copiously irrigated with pulsatile | |lavage. The periarticular soft tissues were injected with 0.25% Marcaine | |mixed with epinephrine and 30 mg Toradol for hemostasis and postoperative | |pain control. Due to the severe contracture and ossification of much of | |the posterior tissues, no meaningful repair was possible. The wound was | |therefore again copiously irrigated and then closed in layers in a | |subcuticular fashion. An incisional wound VAC dressing was placed to aid | |with healing in light of his high BMI near 40 and multiple medical | |problems. The patient recovered uneventfully from his anesthetic and | |transferred stable to PACU. No intraoperative complications were | |appreciated. | | | | | |Complexity Addendum: | |Due to the severe ankylosing spondylitis with a complete fusion of the hip, | |the complexity of the case was greatly increased. This was further | |complicated by the patient's morbid obesity with BMI near 40. The patient | |traveled across the state to the [facility] setting due to the complexity | |of his situation. Overall surgical time was close to 3 times what would | |otherwise be expected for this type of procedure. There would also be | |higher anticipated rates of associated morbidity. For all of these | |reasons, the complexity modifier is warranted. | | | | | | | | | |Rosa M Smart M.D. | |TW / HS | |[id number] / [id number] / [id number] / | | | | | | | | | | | | | | | | | | | | | + + CAPILLARY BLOOD GLUCOSE, POC (05/10/2012 7:07 AM PDT) + +---------+ + + + | Component | Value | Ref Range | Performed | Pathologist | | | | | At | Signature | + +---------+ + + + | BLOOD | 162 (H) | 60 - 99 mg/dL | [facility] - | | | GLUCOSE, | [...] | [facility] | [address] | [place], [place] | | | [facility] CARE | [address] | [address] | | | TESTS | | | | + + + + + INR (05/10/2012 5:07 AM PDT) + + + + + + | Component | Value | Ref Range | Performed | Pathologist | | | | | At | Signature | + + + + + + | INR | 1.30 (H)Comment: | 0.90 - 1.20 INR | [...] + | [facility] | [address] | [place] [address] | | | PATHOLOGY | [address] | | | + + + + + BASIC METABOLIC SET (NA, K, CL, TCO2, BUN, CR, GLU, CA) (05/10/2012 5:07 AM PDT) + +---------+ + + + | Component | Value | Ref Range | Performed | Pathologist | | | | | At | Signature | + +---------+ + + + | GLUCOSE, | 146 (H) | 60 - 99 mg/dL | [facility] | | | PLASMA | | | DEPARTMENT | | | (LAB) | | | OF | | | | | | PATHOLOGY | | + +---------+ + + + | BUN, PLASMA | 16 | 6 - 20 mg/dL | [facility] | | | (LAB) | | | DEPARTMENT | | | | | | OF | | | | | | PATHOLOGY | | + +---------+ + + + | CREATININE | 0.81 | 0.70 - 1.30 | [facility] | | | PLASMA | | mg/dL | DEPARTMENT | | | (LAB) | | | OF | | | | | | PATHOLOGY | | + +---------+ + + + | SODIUM, | 139 | 136 - 145 | [facility] | | | PLASMA | | mmol/L | DEPARTMENT | | | (LAB) | | | OF | | | | | | PATHOLOGY | | + +---------+ + + + | POTASSIUM, | 4.5 | 3.4 - 5.0 | [facility] | | | PLASMA | | mmol/L | DEPARTMENT | | | (LAB) | | | OF | | | | | | PATHOLOGY | | + +---------+ + + + | CHLORIDE, | 104 | 97 - 108 mmol/L | [facility] | | | PLASMA | | | DEPARTMENT | | | (LAB) | | | OF | | | | | | PATHOLOGY | | + +---------+ + + + | TOTAL CO2, | 27 | 21 - 32 mmol/L | [facility] | | | PLASMA | | | DEPARTMENT | | | (LAB) | | | OF | | | | | | PATHOLOGY | | + +---------+ + + + | CALCIUM, | 7.8 (L) | 8.6 - 10.2 | [facility] | | | PLASMA | | mg/dL | DEPARTMENT | | | (LAB) | | | OF | | | | | | PATHOLOGY | | + +---------+ + + + | ANION GAP | 8 | 4 - 11 mmol/L | [facility] | | | | | | DEPARTMENT | | | | | | OF | | | | | | PATHOLOGY | | + +---------+ + + + [...] + + + + + | [facility] | [address] | [place] [address] | | | PATHOLOGY | [address] | | | + + + + + CBC ONLY (05/10/2012 5:07 AM PDT) + + + + + + | Component | Value | Ref Range | Performed | Pathologist | | | | | At | Signature | + + + + + + | WHITE CELL | 7.6 | 4.4 - 11.0 K/cu | [facility] | | | COUNT | | mm | DEPARTMENT | | | | | | OF | | | | | | PATHOLOGY | | + + + + + + | RED CELL | 3.61 (L) | 4.50 - 5.90 | [facility] | | | COUNT | | M/cu mm | DEPARTMENT | | | | | | OF | | | | | | PATHOLOGY | | + + + + + + | HEMOGLOBIN | 10.0 (L) | 13.5 - 17.5 | [facility] | | | | | g/dL | DEPARTMENT | | | | | | OF | | | | | | PATHOLOGY | | + + + + + + | HEMATOCRIT | 30.3 (L) | 41.0 - 53.0 % | [facility] | | | | | | DEPARTMENT | | | | | | OF | | | | | | PATHOLOGY | | + + + + + + | MCV | 84.1 | 80.0 - 96.0 fL | [facility] | | | | | | DEPARTMENT | | | | | | OF | | | | | | PATHOLOGY | | + + + + + + | MCHC | 33.1 (L) | 33.4 - 35.5 | [facility] | | | | | g/dL | DEPARTMENT | | | | | | OF | | | | | | PATHOLOGY | | + + + + + + | RDW | 15.4 (H) | 11.5 - 15.0 % | [facility] | | | | | | DEPARTMENT | | | | | | OF | | | | | | PATHOLOGY | | + + + + + + | PLATELET | 205 | 150 - 400 K/cu | [facility] [...] + + + + + | [facility] | [address] | [place] [address] | | | PATHOLOGY | [address] | | | + + + + + CAPILLARY BLOOD GLUCOSE, POC (05/09/2012 9:22 PM PDT) + +---------+ + + + | Component | Value | Ref Range | Performed | Pathologist | | | | | At | Signature | + +---------+ + + + | BLOOD | 281 (H) | 60 - 99 mg/dL | [facility] - | | | GLUCOSE, | | [...] | [facility] | [address] | [place], [place] | | | [facility] | [facility] | [address] | | | TESTS | | | | + + + + + X-RAY PORTABLE PELVIS 1 VIEW (05/09/2012 5:08 PM PDT) + + + + + + | Component | Value | Ref Range | Performed | Pathologist | | | | | At | Signature | + + + + + + | X-RAY | EXAM: MS PELVIS 1 VIEW, | | | | | PORTABLE | 05/10/12 COMPARISON: | | | | | PELVIS 1 | 12/15/2010 HISTORY: Left | | | | | VIEW | total hip arthroplasty | | | | | | FINDINGS: There has been | | | | | | recent resection of the | | | | | | left femoral head and | | | | | | neck andplacement of a | | | | | | non-cemented total hip | | | | | | arthroplasty. There | | | | | | is normalalignment and | | | | | | no fracture or other | | | | | | acute | | | | | | complication. 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 | | | | | | IMPRESSION: New left | | | | | | total hip arthroplasty | | | | | | in normal alignment | | | | | | without | | | | | | hardwarecomplication. | | | | | | Unchanged findings of | | | | | | ankylosing spondylitis. | | | | | | Attending Radiologists: | | | | | | Rogerio Snider M.D.Author: | | | | | | ROGERIO VILLANUEVA MD I have | | | | | | personally viewed this | | | | | | procedure/exam, reviewed | | | | | | this report,and made | | | | | | changes to it where | | | | | | appropriate. | | | | | | Final/Electronically | | | | | | signed / Rogerio Snider | | | | | | 05/10/2012 13:17 | | | | | | PM Pending final | | | | | | approval / ROGERIO VILLANUEVA | | | | | | 05/10/2012 11:32 | | | | | | AM Preliminary / | | | | | | ROGERIO VILLANUEVA 05/10/2012 | | | | | | 6:54 AM | | | | + + [...] | + +---------+ + + CAPILLARY BLOOD GLUCOSE, POC (05/09/2012 4:01 PM PDT) + +---------+ + + + | Component | Value | Ref Range | Performed | Pathologist | | | | | At | Signature | + +---------+ + + + | BLOOD | 183 (H) | 60 - 99 mg/dL | [...] + + + | [facility] | [address] | [place], [place] | | | [facility] OF CARE | [address] | [address] | | | TESTS | | | | + + + + + PEDIATRIC PERFUSION (05/09/2012 12:00 AM PDT) + + + | Narrative | Performed At | + + + | | | + + + + + | Transcriptions | + + | Sameera Patel - 05/18/2012 1:47 PM PDT | + + documented in [...] | | | + +--------+ +--------+------+------+ | acetaminophen (aka TYLENOL) | Given | 05/10/20 | 650 mg | | | | tablet 325-650 mg 325-650 mg, | | 12 8:24 | | | | | oral, EVERY 4 HOURS NEEDED, | | AM PDT | | | | | Starting 05/09/12 at 1732, | | | | | | | Until Nusrat 05/12/12 at 2206, mild | | | | | | | pain | | | | | | + +--------+ +--------+------+------+ +-------+ +--------+---+---+ | Given | 05/10/20 | 650 mg | | | | | 12 3:22 | | | | | | AM PDT | | | | +-------+ +--------+---+---+ +---+---+ | | | +---+---+ + +---------+ +-----+--------+---+ | ceFAZolin (aka ANCEF) IV 2 g 2 | New Bag | 05/12/20 | 2 g | mL/hr | | | g, intravenous, EVERY 8 HOURS, | | 12 4:31 | | | | | First dose on Wed05/09/12 at | | AM PDT | | | | | 1915, Until Discontinued | | | | | | + +---------+ +-----+--------+---+ +---------+ +-----+--------+---+ | New Bag | 05/11/20 | 2 g | mL/hr | | | | 12 8:03 | | | | | | PM PDT | | | | +---------+ +-----+--------+---+ | New Bag | 05/11/20 | 2 g | mL/hr | | | | 12 12:09 | | | | | | PM PDT | | | | +---------+ +-----+--------+---+ +---+---+ | | | +---+---+ + +-------+ +--------+---+---+ | cholecalciferol (Vitamin D3) | Given | 05/12/20 | 5,000 | | | | (aka VITAMIN D-3) tablet 5,000 | | 12 9:27 | Units | | | | Units 5,000 Units, oral, DAILY, | | AM PDT | | | | | First dose on 05/09/12 at | | | | | | | 1915, Until Discontinued | | | | | | + +-------+ +--------+---+---+ +-------+ +--------+---+---+ | Given | 05/11/20 | 5,000 | | | | | 12 8:13 | Units | | | | | AM PDT | | | | +-------+ +--------+---+---+ | Given | 05/10/20 | 5,000 | | | | | 12 8:24 | Units | | | | | AM PDT | | | | +-------+ +--------+---+---+ +---+---+ | | | +---+---+ + +-------+ +---+---+---+ | clotrimazole (aka LOTRIMIN AF) | Given | 05/12/20 | | | | | 1 % cream topical, TWICE DAILY, | | 12 9:28 | | | | | First dose on 05/09/12 at | | AM PDT | | | | | 2100, Until Discontinued | | | | | | + +-------+ +---+---+---+ +-------+ +---+---+---+ | Given | 05/11/20 | | | | | | 12 8:09 | | | | | | PM PDT | | | | +-------+ +---+---+---+ | Given | 05/11/20 | | | | | | 12 8:22 | | | | | | AM PDT | | | | +-------+ +---+---+---+ +---+---+ | | | +---+---+ + +-------+ +-------+---+---+ | enoxaparin (aka LOVENOX) | Given | 05/12/20 | 40 mg | | | | injection 40 mg 40 mg, | | 12 12:45 | | | | | subcutaneous, EVERY NOON, First | | PM PDT | | | | | dose on Wed05/10/12 at 0615, | | | | | | | Until Discontinued | | | | | | + +-------+ +-------+---+---+ +-------+ +-------+---+---+ | Given | 05/11/20 | 40 mg | | | | | 12 12:10 | | | | | | PM PDT | | | | +-------+ +-------+---+---+ | Given | 05/10/20 | 40 mg | | | | | 12 5:24 | | | | | | AM PDT | | | | +-------+ +-------+---+---+ +---+---+ | | | +---+---+ + +---------+ +--------+--------+---+ | HYDROmorphone (aka DILAUDID) | New Bag | 05/09/20 | 0.5 mg | mL/hr | | | injection 0.2-0.5 mg 0.2-0.5 mg, | | 12 3:54 | | | | | intravenous, POSTPROCEDURE PRN, | | PM PDT | | | | | Starting 05/09/12 at 1308, | | | | | | | Until Wed05/09/12 at 1714, | | | | | | | moderate pain | | | | | | + +---------+ +--------+--------+---+ +---------+ +--------+--------+---+ | New Bag | 05/09/20 | 0.5 mg | mL/hr | | | | 12 3:44 | | | | | | PM PDT | | | | +---------+ +--------+--------+---+ + +---+ | | | + +---+ | HYDROmorphone (aka DILAUDID) | | | injection 1 dose, Starting Mon | | | 05/09/12 at 1543, Until Mon | | | 05/09/12 at 1544 | | + +---+ | | | + +---+ + +-------+ +---------+---+---+ | insulin lispro (aka HUMALOG) | Given | 05/12/20 | 2 Units | | | | injection 1-16 Units 1-16 Units, | | 12 3:50 | | | | | subcutaneous, WITH MEALS AND | | PM PDT | | | | | BEDTIME, First dose on Wed | | | | | | | 05/09/12 at 1400, Until | | | | | | | Discontinued | | | | | | + +-------+ +---------+---+---+ +-------+ +---------+---+---+ | Given | 05/12/20 | 2 Units | | | | | 12 10:10 | | | | | | AM PDT | | | | +-------+ +---------+---+---+ | Given | 05/12/20 | 2 Units | | | | | 12 2:01 | | | | | | AM PDT | | | | +-------+ +---------+---+---+ +---+---+ | | | +---+---+ + +---------+ +-------+-------+---+ | lactated ringers IV 100 mL/hr, | New Bag | 05/10/20 | 100 | 100 | | | intravenous, CONTINUOUS, | | 12 1:42 | mL/hr | mL/hr | | | Starting 05/09/12 at 1630, | | AM PDT | | | | | Until Nusrat 05/12/12 at 2206 | | | | | | + +---------+ +-------+-------+---+ +---------+ +-------+-------+---+ | New Bag | 05/09/20 | 100 | 100 | | | | 12 4:26 | mL/hr | mL/hr | | | | PM PDT | | | | +---------+ +-------+-------+---+ +---+---+ | | | +---+---+ + +-------+ +--------+---+---+ | levothyroxine tablet 50 mcg 50 | Given | 05/12/20 | 50 mcg | | | | mcg, oral, DAILY, First dose on | | 12 9:26 | | | | | 05/10/12 at 0700, Until | | AM PDT | | | | | Discontinued | | | | | | + +-------+ +--------+---+---+ +-------+ +--------+---+---+ | Given | 05/11/20 | 50 mcg | | | | | 12 6:38 | | | | | | AM PDT | | | | +-------+ +--------+---+---+ | Given | 05/10/20 | 50 mcg | | | | | 12 6:31 | | | | | | AM PDT | | | | +-------+ +--------+---+---+ +---+---+ | | | +---+---+ + + + +---------+---+---+ | lidocaine (aka LIDODERM) 5 | Applied | 05/12/20 | 1 patch | | | | %(700 mg/patch) patch 2 Patch 2 | Patch | 12 12:45 | | | | | patch, transdermal, EVERY 24 | | PM PDT | | | | | HOURS, First dose on Wed05/10/12 | | | | | | | at 1215, Until Discontinued | | | | | | + + + +---------+---+---+ +---+---+ | | | +---+---+ + +-------+ +-------+---+---+ | lisinopril (aka PRINIVIL) | Given | 05/12/20 | 10 mg | | | | tablet 10 mg 10 mg, oral, DAILY, | | 12 9:27 | | | | | First dose on 05/10/12 at | | AM PDT | | | | | 0900, Until Discontinued | | | | | | + +-------+ +-------+---+---+ +-------+ +-------+---+---+ | Given | 05/11/20 | 10 mg | | | | | 12 8:13 | | | | | | AM PDT | | | | +-------+ +-------+---+---+ | Given | 05/10/20 | 10 mg | | | | | 12 8:24 | | | | | | AM PDT | | | | +-------+ +-------+---+---+ +---+---+ | | | +---+---+ + +-------+ +-------+---+---+ | metoprolol tartrate (aka | Given | 05/12/20 | 25 mg | | | | LOPRESSOR) tablet 25 mg 25 mg, | | 12 9:27 | | | | | oral, TWICE DAILY, First dose on | | AM PDT | | | | | 05/09/12 at 2100, Until | | | | | | | Discontinued | | | | | | + +-------+ +-------+---+---+ +-------+ +-------+---+---+ | Given | 05/11/20 | 25 mg | | | | | 12 8:06 | | | | | | PM PDT | | | | +-------+ +-------+---+---+ | Given | 05/11/20 | 25 mg | | | | | 12 8:13 | | | | | | AM PDT | | | | +-------+ +-------+---+---+ +---+---+ | | | +---+---+ + +-------+ +-------+---+---+ | morphine (aka MS IR) tablet 15 | Given | 05/11/20 | 15 mg | | | | mg 15 mg, oral, EVERY 4 HOURS | | 12 5:40 | | | | | NEEDED, Starting 05/09/12 at | | AM PDT | | | | | 1721, Until Nusrat 05/12/12 at 0628, | | | | | | | severe pain | | | | | | + +-------+ +-------+---+---+ +-------+ +-------+---+---+ | Given | 05/10/20 | 15 mg | | | | | 12 9:52 | | | | | | PM PDT | | | | +-------+ +-------+---+---+ | Given | 05/10/20 | 15 mg | | | | | 12 5:12 | | | | | | PM PDT | | | | +-------+ +-------+---+---+ +---+---+ | | | +---+---+ + +-------+ +-------+---+---+ | morphine (aka MS IR) tablet | Given | 05/12/20 | 15 mg | | | | 15-45 mg 15-45 mg, oral, EVERY 4 | | 12 3:43 | | | | | HOURS NEEDED, Starting Nusrat | | PM PDT | | | | | 05/12/12 at 0627, Until Nusrat | | | | | | | 05/12/12 at 2206, severe pain | | | | | | + +-------+ +-------+---+---+ +---+---+ | | | +---+---+ + +-------+ +-------+---+---+ | morphine ER (aka MS CONTIN) | Given | 05/11/20 | 60 mg | | | | tablet 60 mg 60 mg, oral, EVERY | | 12 8:06 | | | | | 12 HOURS, First dose on Mon | | PM PDT | | | | | 05/09/12 at 2100, Until | | | | | | | Discontinued | | | | | | + +-------+ +-------+---+---+ +-------+ +-------+---+---+ | Given | 05/11/20 | 60 mg | | | | | 12 8:13 | | | | | | AM PDT | | | | +-------+ +-------+---+---+ | Given | 05/10/20 | 60 mg | | | | | 12 8:28 | | | | | | PM PDT | | | | +-------+ +-------+---+---+ +---+---+ | | | +---+---+ + +-------+ +------+---+---+ | polyethylene glycol (aka | Given | 05/11/20 | 17 g | | | | MIRALAX) powder 17 g 17 g, oral, | | 12 8:13 | | | | | DAILY, First dose on Wed05/10/12 | | AM PDT | | | | | at 1330, Until Discontinued | | | | | | + +-------+ +------+---+---+ +-------+ +------+---+---+ | Given | 05/10/20 | 17 g | | | | | 12 12:01 | | | | | | PM PDT | | | | +-------+ +------+---+---+ +---+---+ | | | +---+---+ + +-------+ + +---+---+ | senna-docusate (aka AVA S) | Given | 05/12/20 | 1 tablet | | | | 8.6-50 mg 1 Tab 1 tablet, oral, | | 12 9:27 | | | | | TWICE DAILY, First dose on Wed | | AM PDT | | | | | 05/10/12 at 1330, Until | | | | | | | Discontinued | | | | | | + +-------+ + +---+---+ +-------+ + +---+---+ | Given | 05/11/20 | 1 tablet | | | | | 12 8:06 | | | | | | PM PDT | | | | +-------+ + +---+---+ | Given | 05/11/20 | 1 tablet | | | | | 12 8:13 | | | | | | AM PDT | | | | +-------+ + +---+---+ +---+---+ | | | +---+---+ + +-------+ +-------+---+---+ | sorbitol liquid 30 mL 30 mL, | Given | 05/11/20 | 30 mL | | | | oral, DAILY NEEDED, Starting | | 12 6:38 | | | | | 05/11/12 at 0546, Until Nusrat | | AM PDT | | | | | 05/12/12 at 2206, constipation | | | | | | + +-------+ +-------+---+---+ +---+---+ | | | +---+---+ + +-------+ +--------+---+---+ | warfarin (aka COUMADIN) oral | Given | 05/11/20 | 5.5 mg | | | | dose 5.5 mg 5.5 mg, oral, EVERY | | 12 8:06 | | | | | EVENING, First dose on Wed | | PM PDT | | | | | 05/11/12 at 2100, Until | | | | | | | Discontinued | | | | | | + +-------+ +--------+---+---+ +---+---+ | | | +---+---+ + +-------+ +------+---+---+ | warfarin (aka COUMADIN) tablet | Given | 05/10/20 | 6 mg | | | | 6 mg 6 mg, oral, EVERY EVENING, | | 12 8:29 | | | | | First dose on Wed05/10/12 at | | PM PDT | | | | | 2100, Until Discontinued | | | | | | + +-------+ +------+---+---+ +---+---+ | | | +---+---+ documented in this encounter
--- OUTSIDE RECORDS SUMMARY | ~2019-01-28 | XMS | Encounter Summary ---
Demographics + + + | Address | [address] | | | [place] [address] | + + + | Home Phone [...] Author + + + | Author | [facility] | + + + | Organization | [facility] | + + + | [...] Team Providers + +------+ + | Care Carpet Installer Helper Name | Role | Phone | + [...] Taj | | | | | at [facility] | [facility] | | | | | [address] | [place] [address] | | | | | [facility] | | | | | | Mailcode: [id number] Taj | | | | | | Wilfrido Cisneros | | | | | | [facility], | | | | | | [place] [address] | | | | | | [phone] | | | +--------+ + + + [...] + | [place] DEPARTMENT OF | [address] [facility] | [place] [address] | | | PATHOLOGY | [address] | | | + + + + + documented in this encounter Visit Diagnoses Not on filedocumented in this encounter"
--- OUTSIDE RECORDS SUMMARY | ~2019-01-28 | XMS | Encounter Summary ---
Demographics + + + | Address | [address] | | | [place] [address] | + + + | Home Phone [...] Team Providers + +------+ + | Care Bundle Sorter Name | Role | Phone | + [...] Irish Anna | | | | | ([facility]) | [address] | [address] | | | | | Procedures | [place], Mailcode: | | | | | CONSULT TO | [place] [address] | OP09 | | | | | RHEUMATOLOGY | Phone: | Physicians | | | | | | [phone] | [address] | | | | | | Fax: | Floor | | | | | | [phone] | [place], [place] | | | | | | | [address] | | | | | | | Phone: | | | | | | | [phone] | | | | | | | Fax: | | | | | | | [phone] | +--------+--------+ + + + + Encounter Details +--------+---------+ + + + | Date | Type | Department | Care Team | Description | +--------+---------+ + + + | 05/16/ | Office | Rheumatology at | Yulisa Hearn, | (ankylosing | | 2012 | Visit | [facility] | [address] | spondylitis) ([facility]) | | | | [address] | [address] | (Primary Dx) | | | | [facility] [address] | [place] [address] | | | | | Mailcode: [id number] | [phone] | | | | | [facility] | | | | | | [place], [place] | | | | | | [address] | | | | | | [phone] | | | +--------+---------+ + + + [...] ARREDONDO MD (ATUL) RHEUMATOLOGY FACULTY [address] [place] [address] Yulisa Winchester MD - 05/16/2013 10:25 AM PDT RHEUMATOLOGY NEW PATIENT CONSULT This consultation was requested by: Harinder Felton MD [address] [place] [address] fax: [phone] CC: No chief complaint on file. HPI: This is a 62 y.o. male, here for consultation from Harinder Felton MD regarding diagnos is, and possible change in therapy for ankilosing spondylitis. Mr Cisneros is a 62 yo man who holds a long standing diagnosis of . He was di agnosed in late 70' in [place] by his PCP, but was never referred [...] Wt 113.853 kg (251 lb) | B SC 39.91 kg/(m^2) Pain Score: 6 Gen: Well [...] bilateral hip arthropathy and probable erosions EXAM: CA PELVIS 1 VIEW, 05/10/12 COMPARISON: 12/15/2010 HISTORY: [...] YULISA HEARN MD RHEUMATOLOGY FELLOWS [address] [facility] Mailcode: [id number] [place] [address] documented in this en counter Plan of Treatment Not on filedocumented as of this encounter Procedures + +--------+ + + + | Procedure Name | Priori | Date/Time | Associated Diagnosis | Comments | | | ty | | | | + +--------+ + + + | CA TB INTRADERMAL | Routin | 05/16/2013 | (ankylosing | | | TEST | e | 11:12 AM | spondylitis) ([facility]) | | | | | PDT | [...] + | [facility] - | [address] | [place] [address] | | | [place] | | | [...] + | [facility] - | [address] | [place] [address] | | | [place] | | | [...] | + + + + + | [facility] - | [address] | [place] [address] | | | [place] | | | [...] | + + + + + | [facility] | [address] | [place] [address] | | | SERVICES, NAY | [address] [...] + | [facility] [facility] - | [address] | [place] [address] | | | [place] | | | [...] | | + +---------+ + + | [facility] DEPARTMENT OF | | | | | RADIOLOGY | | | | + +---------+ + + documented in this encounter Visit Diagnoses + + | Diagnosis | + + | (ankylosing spondylitis) (HCC) - Primary Ankylosing spondylitis | + + documented in this encounter
--- OUTSIDE RECORDS SUMMARY | ~2019-01-28 | XMS | Encounter Summary ---
Demographics + + + | Address | [address] | | | [place] [address] | + + + | Home Phone [...] Team Providers + +------+ + | Care Environmental Test Technician Name | Role | Phone | [...] 03/13/ | Anesthesia | 6A Intra Op [facility] | Williams Knight, | | | 2012 | Event | [facility] | GOLD CHARMER [address] [facility] | | | | | Admitting Desk | [facility] | | | | | Located on the | [place], [place] | | | | | floor [address] [place] [address] | [address] | | | | | [facility] | [phone] | | | | | [place], [place] | | | | | | [address] | | | +--------+ + + + + Anesthesia Record + + + + + | Procedure Name | Responsible | Anesthesia Start | Anesthesia Stop Time | | | Anesthesiologist | Time | | + + + + + | LAPAROSCOPIC | Bella Lion MD | 03/13/13 0830 | 03/13/13 1250 | | CHOLECYSTECTOMY | | | | | W/GRAMS (N/A ) | | | | + + [...] + + + | RETIRE | 03/13/13; 840; 06/10/17 | 03/13/13 08 by | 06/10/17 162 by | | D - | (Automatic cleanup per RA | Williams Knight, | Discontinued After | | Periph | 3006--contact admin for | GOLD CHARMER | Discharge | | eral | questions.); 162 (Automatic | | | | Line | cleanup per RA 3006--contact | | | | | admin for questions.); No; 16; | | | | | Right; Hand; None; No; Positive | | | +--------+ + + + | RETIRE | 03/13/13; 08; 03/14/13; 1199; | 03/13/13 0854 by | 03/14/13 1200 by | | D - | No; Chepe; 16FR | Joby Ann | Clemente Butler RN | | Everardo | | | | | y Cath [...] | | | | | PRN, Starting 03/13/13 at | | AM PDT | | | | | 0901, Until 03/13/13 at 1239 | | | | | | + +-------+ + +---+---+ +---+---+ | | | +---+---+ + +-------+ +-------+---+---+ | ePHEDrine injection | Given | 03/13/20 | 10 mg | | | | intravenous, INTRAPROCEDURE PRN, | | 13 8:54 | | | | | Starting 03/13/13 at 0852, | | AM PDT | | | | | Until 03/13/13 at 1239 | | | | [...] 12:49 | | | | | Starting Wed03/13/13 at 0932, | | PM PDT | [...] | +---+---+ + +-------+ +-------+---+---+ | ketamine (aka KETALAR) | Given | 03/13/20 | 10 mg | | | | injection INTRAPROCEDURE PRN, | | 13 12:53 | | | | | Starting 03/13/13 at 0950, | | PM PDT | [...] 12:49 | | | | | Starting Wed03/13/13 at 0815, | anesthes | PM PDT | | | | | Until Wed03/13/13 at 1239 | iology | | | [...]
--- OUTSIDE RECORDS SUMMARY | ~2019-01-28 | XMS | Encounter Summary ---
Demographics + + + | Address | [address] | | | [place] [address] | + + + | Home Phone [...] Team Providers + +------+ + | Care Imagery Analyst Name | Role | Phone | + +------+ + | Gracie Mariano MD | PCP | Unavailable | + +------+ + Reason for Visit + + + | Reason | Comments | + + + | Shoulder pain | | + + + Consultation (Routine) +--------+--------+ + + + + | Status | Reason | Specialty | Diagnoses / | Referred By | Referred To | | | | | Procedures | Contact | Contact | +--------+--------+ + + + + | Closed | | Orthopedics | Diagnoses | [place], | [place], | | | | | Ankylosing | Carole Townsend MD | MD Leroy | | | | | spondylitis | [address] | [address] [facility] | | | | | (HCC) | [address] | [address] | | | | | Heterotopic | [address] | [address] [place], | | | | | ossification | [place], [place] | [place] | | | | | of bone | [address] | [address] | | | | | Right | Phone: | Phone: | | | | | shoulder | [phone] | [phone] | | | | | pain Rt | Fax: | Fax: | | | | | shoulder | [phone] | [phone] | | | | | Procedures | [...] Description | +--------+---------+ + + + | 11/10/ | Office | Orthopaedics at | Linnea Calvo PA | Right shoulder pain, | | 2015 | Visit | [facility] [address] | [address] | unspecified | | | | Ave Mailcode: [id number] | [place], [place] | chronicity (Primary | | | | [facility] | [address] | Dx); Shoulder | | | | and , | [phone] | arthritis; | | | | Floor [place], [place] | | Ankylosing | | | | [address] | | spondylitis (HCC) | | | | [phone] | | | +--------+---------+ + + + [...] documented as of this encounter Progress Notes Linnea Calvo PA - 11/11/2015 2:02 PM PDT innea Calvo PA - 11/10 11:34 AM PDT Jorge L Cisneros is a 64 y.o. Male with chief complaint of right shoulder pain for months to ye ars. He states he is having difficulty with moving the arm and is having progressive decreas ed motion with increased pain. No known trauma, just came on slowly and has progressed. He d enies on going numbness or tingling into hand. He is here for on going definitive treatment. 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 Walker in 2013 and is doing well Patient history as follows: Patient Active Problem List Diagnosis Osteoarthrosis, hip Ankylosing Spondylitis (HCC) Cholecystitis Ventral hernia Hypertension Diabetes mellitus (HCC) Chronic pain Pruritus Antiphospholipid antibody syndrome (HCC) Difficult intubation Heterotopic ossification of bone Heterotopic ossification Right shoulder pain Past Surgical History Procedure Laterality Date Colectomy 2004 partial, for diverticulitis Rotator cuff repair 1997 Left total hip arthroplasty with complexity modifier, incisional wound vac 05/09/2012 Cholecystectomy 06/2013 Current outpatient prescriptions: adalimumab 40 mg/0.8 mL Subcutaneous Pen Injector Kit, In ject 0.8 mL under the skin (SUBC) every fourteen days. As directed., Disp: 6 kit, Rfl: 3 Cholecalciferol, Vitamin D3, 5,000 unit Oral capsule, Take 5,000 Units by mouth once daily. , Disp: , Rfl: clotrimazole 1 % Topical Cream, Apply to affected area two times daily. Apply to affected area for 7 consecutive days. , Disp: , Rfl: glipiZIDE 5 mg Oral tablet, Take 5 mg by mouth two times daily., Disp: , Rfl: insulin glargine 100 unit/mL subcutaneous solution, Inject 44 Units under the skin (SUBC) o nce daily at bedtime., Disp: , Rfl: levothyroxine 50 mcg Oral tablet, Take 25 mcg by mouth once daily., Disp: , Rfl: lisinopril 10 mg Oral tablet, Take 10 mg by mouth once daily. , Disp: , Rfl: MEDICAL MARIJUANA, once daily. 3 grams per day, Disp: , Rfl: morphine 15 mg oral tablet, Take 1-2 tablets by mouth every three hours as needed for moder ate pain or severe pain., Disp: 100 tablet, Rfl: 0 multivitamin Oral capsule, Take 1 Cap by mouth once daily., Disp: , Rfl: polyethylene glycol 17 gram/dose oral powder, Take 17 g by mouth once daily as needed (No B M in past 3 days)., Disp: 119 g, Rfl: 0 senna-docusate 8.6-50 mg oral tablet, Take 1 tablet by mouth two times daily., Disp: 60 tab let, Rfl: 2 warfarin 6 mg oral tablet, Take 6 mg by mouth once daily., Disp: , Rfl: Called [facility] while patient was in the clinic, last hemoglobin A1c was in Jul and was 7.8 Will plan to re draw again soon to get that level Patient also on blood thinner for anti phospholipid antibody syndrome and has history of ri ght LE blood clot On exam patient is well developed overweight male using ski poles for ambulation assistance . He has obvious deformity of the right upper abdomen consistent with a hernia. His abdomen has several well healed incisions. He has limited neck motion which he states is his normal motion due to overall diagnosis of ankylosing spondylitis. His skin at right shoulder is int act and axilla has no signs of rashes or skin issues. He has limited motion of right shoulde r in all planes. He does have some limited active motion in abduction and adduction but it i s not full. xrays as follows: 1. Sequelae of grade 2 acromioclavicular separation. 2. Prominent bone formation in the region of the coracoclavicular ligament either represents enthesopathy secondary to ankylosing spondylitis or heterotopic ossification from prior injury. 3. Mild glenohumeral joint space narrowing and spurring either represents arthropathy of ankylosing spondylitis or degenerative joint disease. 4. Intra-articular glenohumeral bodies, heterotopic ossicles or coracoacromial enthesopathy. 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 Will need to get current hemoglobin A1c as well as plan fo r blood thinner. Sounds like for his total joint with dr. Walker he came off blood thinner and used lovanox prior to surgery. He will need to be optimized for hemoglobin A1c level if not under 7 and see his pcp or whomever manages his blood thinner. Patient will need hospitalis t should surgery be planned and will also likely need advanced intubation due to limited nec k issue. Patient was not guaranteed any surgery but he will get the above issues taken care of locally and once we know that he has a normal hemoglobin A1c we can get him rescheduled t o return and see dr. Treviño. With his total joint surgery with dr. Walker he discontinued warf bebe and used lovanox pre op which would likely also be the plan should any shoulder surgery be indicated. Patient states he was considering use of humira but plans to not go onto that medication until he has either had a shoulder surgery and recovered or at least until he pérez s been back to further discuss plans with dr. Garcia. Patient to call with questions issues or concerns. He sees Dr. Mcclure at [facility] documented in this encou nter Plan of Treatment + +---------+--------+ + + | Name | Type | Priori | Associated Diagnoses | Order Schedule | | | | ty | | | + +---------+--------+ + + | X-RAY SHOULDER 3+ | Imaging | Routin | Right shoulder | Expected: | | VIEWS RIGHT | | e | pain, unspecified | 11/06/2015, Expires: | | | | | chronicity | 12/06/2016 | + +---------+--------+ + + documented as of this encounter Procedures + +--------+ + + + | Procedure Name | Priori | Date/Time | Associated Diagnosis | Comments | | | ty | | | | + +--------+ + + + | LAB REPORTS | | 11/13/2015 | | Results for this | | | | 12:00 AM | | procedure are in the | | | | PDT | | results section. | + +--------+ + + + documented in this encounter Results LAB REPORTS (11/13/2015 12:00 AM PDT) + + + | Narrative | Performed At | + + + | | | + + + documented in this encounter Visit Diagnoses + + | Diagnosis | + + | Right shoulder pain, unspecified chronicity - Primary | + + | Shoulder arthritis Unspecified arthropathy, shoulder region | + + | Ankylosing spondylitis (HCC) Ankylosing spondylitis | + + documented in this encounter"
--- OUTSIDE RECORDS SUMMARY | ~2019-01-28 | XMS | Encounter Summary ---
Demographics + + + | Address | [address] | | | [place] [address] | + + + | Home Phone [...] Author + + + | Author | [facility] | + + + | Organization | [facility] | + + + | Address [...] Team Providers + +------+ + | Care Territory Outside Sales Manager Name | Role | Phone | + +------+ + | Gracie Mariano MD | PCP | Unavailable | + +------+ + Encounter Details +--------+ + + + + | Date | Type | Department | Care Team | Description | +--------+ + + + + | 01/02/ | Telephone | Orthopaedics at | Dorothy Starks, | | | 2013 | | [facility] [address] | | | | | [facility] | | | | | | Mailcode: [id number] | | | | | | [facility] | | | | | | [place], [place] | | | | | | [address] | | | | | | [phone] | | | +--------+ + + + [...]
--- OUTSIDE RECORDS SUMMARY | ~2019-01-28 | XMS | Encounter Summary ---
Demographics + + + | Address | [address] | | | [place] [address] | + + + | Home Phone [...] Author + + + | Author | [facility] | + + + | Organization | [facility] | + + + | Address [...] Team Providers + +------+ + | Care Justowriter Operator Name | Role | Phone | + +------+ + | Gracie Mariano MD | PCP | Unavailable | + +------+ + Encounter Details +--------+ + + + + | Date | Type | Department | Care Team | Description | +--------+ + + + + | 05/24/ | Rope Twisting Machine Operator | Rheumatology at | Carole Hearn, | Ankylosing | | 2013 | | Rosette Patiño MD [address] | spondylitis (HCC) | | | | [address] [facility] | [address] | (Primary Dx) | | | | [facility] | [place] [address] | | | | | Mailcode: [id number] | [phone] | | | | | Rosette Garnett | | | | | | [place], [place] | | | | | | [address] | | | | | | [phone] | | | +--------+ + + + [...]
--- OUTSIDE RECORDS SUMMARY | ~2019-01-28 | XMS | Encounter Summary ---
Demographics + + + | Address | [address] | | | [place] [address] | + + + | Home Phone [...] Author + + + | Author | [facility] | + + + | Organization | [facility] | + + + | Address [...] Team Providers + +------+ + | Care Boiler Plant Worker Name | Role | Phone | + +------+ + | Ino Ace MD | PCP | Unavailable | + +------+ + Reason for Visit +---------+ + | Reason | Comments | +---------+ + | Post Op | Total Joint | +---------+ + Encounter Details +--------+ + + + + | Date | Type | Department | Care Team | Description | +--------+ + + + + | 09/11/ | Documentati | Orthopaedics at | Jorge Walker MD | Post Op (Total | | 2009 | on | [facility] [address] | [address] | Joint) | | | | [facility] | [facility] | | | | | Mailcode: [id number] | [place], [place] | | | | | [facility] | [address] | | | | | [facility] [place] | [phone] | | | | | [address] | | | | | | [phone] | | | +--------+ + + + [...]
--- OUTSIDE RECORDS SUMMARY | ~2019-01-28 | XMS | Clinical Summary ---
Demographics + + + | Address | [address] | | | [place] [address] | + + + | Home Phone | | + + + | Preferred Language | Unknown | + + + | Marital Status | Single | + + + | Catholic Affiliation | 1041 | + + + | Race | Unknown | + + + | Ethnic Group | Unknown | + + + Author + + + | Author | [facility] | + + + | Organization | [facility] | + + + | Address | Unknown | + + + | Phone | Unavailable | + + + Support + + +---------+ + | Name | Relationship | Address | Phone | + + +---------+ + | Di Cisneros | ECON | Unknown | | + + +---------+ + Care Team Providers + +------+ + | Care Business Continuity Global Director Name | Role | Phone | + +------+ + | Scooby Mcclure MD | PP | | + +------+ + Allergies + + + + + + | Active Allergy | Reactions | Severity | Noted | Comments | | | | | Date | | + + + + + + | Codeine | Other (See Comments) | Medium | 01/07/20 | unknown | | | | | 17 | | + + + + + + | Sitagliptin | Other (See Comments) | Medium | 01/07/20 | angioedema | | | | | 17 | | + + + + + + | Metformin | Diarrhea | Medium | 01/07/20 | | | | | | 17 | | + + + + + + | Penicillins | Other (See Comments) | Medium | 01/07/20 | unknown | | | | | 17 | | + + + + + + | Rosuvastatin | Other (See Comments) | Medium | 01/07/20 | unknown | | | | | 17 | | + + + + + + | Sulfa Antibiotics | Other (See Comments) | Medium | 01/07/20 | Unknown | | | | | 17 | | + + + + + + | Trimethoprim | Other (See Comments) | Medium | 01/07/20 | unknown | | | | | 17 | | + + + + + + Current Medications + + +---------+---------+------+------+-------+ | Prescription | Sig. | Disp. | Refills | Star | End | Statu | | | | | | t | Date | s | | | | | | Date | | | + + +---------+---------+------+------+-------+ | allopurinol | Take 100 mg by mouth | | | | | Activ | | (ZYLOPRIM) 100 MG | daily. | | | | | e | | tablet | | | | | | | + + +---------+---------+------+------+-------+ | Cholecalciferol | Take 1 tablet by | | | | | Activ | | 2000 units CAPS | mouth. | | | | | e | + + +---------+---------+------+------+-------+ | folic acid | Take 1 mg by mouth | | | | | Activ | | (FOLVITE) 1 MG | daily. Indications: | | | | | e | | tabletIndications: | 0.5 tab by mouth q | | | | | | | 0.5 tab by mouth q | day | | | | | | | day | | | | | | | + + +---------+---------+------+------+-------+ | insulin glargine | Inject into the | | | | | Activ | | (LANTUS) 100 UNIT/ML | skin nightly. | | | | | e | | | Indications: Inject | | | | | | | injectionIndications | 65 units under the | | | | | | | : Inject 65 units | skin at bedtime for | | | | | | | under the skin at | diabetes | | | | | | | bedtime for diabetes | | | | | | | + + +---------+---------+------+------+-------+ | | Take 25 mg by mouth | | | | | Activ | | hydrochlorothiazide | daily. Indications: | | | | | e | | (HYDRODIURIL) 25 MG | take 1 tab by mouth | | | | | | | tabletIndications: | q morning for HBP | | | | | | | take 1 tab by mouth | | | | | | | | q morning for HBP | | | | | | | + + +---------+---------+------+------+-------+ | insulin aspart | Inject into the | | | | | Activ | | (NOVOLOG) 100 | skin 3 (three) times | | | | | e | | UNIT/ML | daily before meals. | | | | | | | injectionIndications | Indications: Inject | | | | | | | : Inject 25 units | 25 units under the | | | | | | | under the skin | skin before meals | | | | | | | before meals (2-3 x | (2-3 x per day) | | | | | | | per day) | | | | | | | + + +---------+---------+------+------+-------+ | levothyroxine | Take 50 mcg by mouth | | | | | Activ | | (SYNTHROID) 50 MCG | every morning | | | | | e | | tabletIndications: | before breakfast. | | | | | | | Take 1 tab by mouth | Indications: Take 1 | | | | | | | q day except take 1 | tab by mouth q day | | | | | | | and 1.5 tab twice | except take 1 and | | | | | | | weekly. | 1.5 tab twice | | | | | | | | weekly. | | | | | | + + +---------+---------+------+------+-------+ | morphine (MSIR) 15 | Take 15 mg by mouth | | | | | Activ | | MG | every 4 (four) hours | | | | | e | | tabletIndications: | as needed for Pain. | | | | | | | Take 1 tab by mouth | Indications: Take 1 | | | | | | | q 12 hrs if needed | tab by mouth q 12 | | | | | | | for pain | hrs if needed for | | | | | | | | pain | | | | | | + + +---------+---------+------+------+-------+ | morphine (MSIR) 20 | Take 60 mg by mouth | | | | | Activ | | MG/ML concentrated | every 2 (two) hours | | | | | e | | solutionIndications: | as needed for Pain. | | | | | | | Take 1 tab by mouth | Indications: Take 1 | | | | | | | q 12 hrs if needed | tab by mouth q 12 | | | | | | | for pain | hrs if needed for | | | | | | | | pain | | | | | | + + +---------+---------+------+------+-------+ | Multiple | Take 1 tablet by | | | | | Activ | | Vitamins-Minerals | mouth daily. | | | | | e | | (MULTIVITAMIN WITH | Indications: Take 1 | | | | | | | MINERALS) | tab q day | | | | | | | tabletIndications: | | | | | | | | Take 1 tab q day | | | | | | | + + +---------+---------+------+------+-------+ | lisinopril | Take 1 tablet by | 30 | 0 | 06/0 | | Activ | | (ZESTRIL) 20 MG | mouth daily. | tablet | | 2/20 | | e | | tablet | | | | 17 | | | + + +---------+---------+------+------+-------+ | cephALEXin | Take 1 capsule by | 28 | 0 | 06/2 | | Activ | | (KEFLEX) 500 MG | mouth 4 (four) times | capsule | | 3/20 | | e | | capsule | daily. | | | 17 | | | + + +---------+---------+------+------+-------+ | acetaminophen | Take 1 tablet by | | | 07/0 | | Activ | | (TYLENOL) 500 MG | mouth every 8 | | | 3/20 | | e | | tablet | (eight) hours as | | | 18 | | | | | needed. | | | | | | + + +---------+---------+------+------+-------+ | docusate sodium | Take 1 capsule by | | | | | Activ | | (COLACE) 100 MG | mouth daily as | | | | | e | | capsule | needed. | | | | | | + + +---------+---------+------+------+-------+ | HYDROmorphone | Take 1 tablet by | | | 07/0 | | Activ | | (DILAUDID) 2 MG | mouth daily as | | | 11/09 | | e | | tablet | needed. | | | 18 | | | + + +---------+---------+------+------+-------+ | medical marijuana | once daily. 3 grams | | | | | Activ | | | per day | | | | | e | + + +---------+---------+------+------+-------+ | rivaroxaban | Take 1 tablet by | | | 07/2 | | Activ | | (XARELTO) 20 MG | mouth daily. | | | 02/09 | | e | | tablet | | | | 18 | | | + + +---------+---------+------+------+-------+ | donepezil | Take 1 tablet by | 30 | 3 | 04/23 | 04/23 | Activ | | (ARICEPT) 5 MG | mouth nightly. | tablet | | 11/09 | 11/09 | e | | tablet | | | | 18 | 19 | | + + +---------+---------+------+------+-------+ Active Problems + + + | Problem | Noted Date | + + + | Driving safety issue | 11/09/2018 | + + + | Exercise counseling | 11/09/2018 | + + + | Uncontrolled hypertension | 11/09/2018 | + + + | Moderate dementia without behavioral disturbance | 05/05/2018 | + + + | Memory loss | 03/10/2018 | + + + | Hypertension goal BP (blood pressure) < 140/80 | 03/10/2018 | + + + | Numbness and tingling of right hand | 05/28/2017 | + + + | Surgical wound dehiscence | 02/12/2017 | + + + + + | Overview: Posterior cervical | + + + + + | S/P cervical spinal fusion | 02/01/2017 | + + + | Non morbid obesity | 01/14/2017 | + + + | CSF leak | 01/12/2017 | + + + | Closed nondisplaced fracture of seventh cervical vertebra (HCC) | 01/07/2017 | + + + | Maxillary fracture, left side, initial encounter for open | 01/07/2017 | | fracture | | + + + | Antiphospholipid syndrome (HCC) | 01/07/2017 | + + + | Controlled type 2 diabetes mellitus with hyperglycemia (HCC) | 01/07/2017 | + + + | Syncope and collapse | 01/07/2017 | + + + | Thyroid mass | 01/07/2017 | + + + Encounters +--------+ + + + + | Date | Type | Specialty | Care Team | Description | +--------+ + + + + | 11/17/ | Documentati | | Sarahi Jade, | | | 2018 | on Only | | MD | | +--------+ + + + + | 11/09/ | Office | | Sudheer Chavez | Moderate dementia | | 2019 | Visit | | MD Bridget | without behavioral | | | | | | disturbance (Primary | | | | | | Dx); Memory loss; | | | | | | Uncontrolled | | | | | | hypertension; | | | | | | Hypertension goal BP | | | | | | (blood pressure) < | | | | | | 140/80; Exercise | | | | | | counseling; Driving | | | | | | safety issue | +--------+ + + + + | 11/09/ | Documentati | | Devika Dukes | | | 2018 | on Only | | Neuroscience | | +--------+ + + + + from Last 3 Months Family History + +------+ + + | Relation | Name | Status | Comments | + +------+ + + | Father | | | | + +------+ + + | Mother | | | | + +------+ + + Social History + +-------+ +--------+------+ [...] + + | Tobacco Cessation: Counseling Given: No | + + + + +---------+ + | Alcohol Use | Drinks/We | oz/Week | Comments | | | ek | | | + + +---------+ + | No | 0 | 0.0 | | | | Standard | | | | | drinks or | | | | | | | | | | equivalen | | | | | t | | | + + +---------+ + + + + | Sex Assigned at | Date Recorded | | | | + + + | Not on file | | + + + Last Filed Vital Signs + + + + | Vital Sign | Reading | Time Taken | + + + + | Blood Pressure | 170/66 | 11/09/2018 8:57 AM PDT | + + + + | Pulse | 86 | 11/09/2018 8:57 AM PDT | + + + + | Temperature | 36.6 C (97.8 F) | 01/22/2017 11:46 AM PDT | + + + + | Respiratory Rate | 18 | 01/22/2017 11:46 AM PDT | + + + + | Oxygen Saturation | 97% | 11/09/2018 8:57 AM PDT | + + + + | Inhaled Oxygen | - | - | | Concentration | | | + + + + | Weight | 118.6 kg (261 lb 8 | 11/09/2018 8:57 AM PDT | | | oz) | | + + + + | Height | 176.5 cm (5' 9.5") | 11/09/2018 8:57 AM PDT | + + + + | Body Mass Index | 38.06 | 11/09/2018 8:57 AM PDT | + + + + Plan of Treatment +--------+ + + + + | Date | Type | Specialty | Care Team | Description | +--------+ + + + + | 05/01/ | Initial | | Sarahi Jade, | | | 2019 | consult | | MD Sushil Yang | | | | | | [place] | | | | | | [address] | | | | | | | | +--------+ + + + + + + + + + | Health Maintenance | Due Date | Last Done | Comments | + + + + + | Diabetic Eye Exam | | | | | | 1 | | | + + + + + | Diabetic Foot Exam | | | | | | 1 | | | + + + + + | Microalbumin | | | | | Screening | 1 | | | + + + + + | Vaccine: | | | | | Dtap/Tdap/Td (1 - | 0 | | | | Tdap) | | | | + + + + + | Colon Cancer | | | | | Screening | 1 | | | | (Colonoscopy) | | | | + + + + + | Vaccine: Zoster (1 | | | | | of 2) | 1 | | | + + + + + | Vaccine: | | | | | Pneumococcal 65+ | 6 | | | | High/Highest Risk (1 | | | | | of 2 - PCV13) | | | | + + + + + | Hemoglobin A1c | | 01/10/2017 | | | | 7 | | | + + + + + | Vaccine: Influenza | | | | | (Season Ended) | 9 | | | + + + + + Implants + +------+------+ +--------+--------+--------+ | Implanted | Type | Area | Manufacture | Device | Expira | Model | | | | | r | | tion | / | | | | | | Identi | Date | Serial | | | | | | fier | | / Lot | + +------+------+ +--------+--------+--------+ | Putty Bone Pls Xemplifi 10cc | | | GLOBUS | | 10/22/ | 8103.0 | | - [id number]: Qty: 1 | | | MEDICAL - | | 2019 | 210S / | | on 01/09/2017 by Kadi | | | GLBU | | | | | [place] | | | | | | /[id number] | | | | | | | | [id number] | + +------+------+ +--------+--------+--------+ | Quartex Lordotic 4.0 | | | GLOBUS | | | 1149.7 | | RodImplanted: Qty: 1 on | | | MEDICAL | | | 620 / | | 01/09/2017 by Kadi, | | | | | | / | | Mendez Nicole MD | | | | | | | + +------+------+ +--------+--------+--------+ | Quartex Lordotic Zacarias 4.0mm X | | | GLOBUS | | | 1149.7 | | 110mmImplanted: Qty: 1 on | | | MEDICAL | | | 610 / | | 01/09/2017 by Kadi, | | | | | | / | | Mendez Nicole MD | | | | | | | + +------+------+ +--------+--------+--------+ | Algrft Strp Bioactv | | | GLOBUS | | | 8115.0 | | [id number] - SnaImplanted: | | | MEDICAL - | | | 120S / | | Qty: 1 on 01/09/2017 by | | | GLBU | | | | | Mendez Wallis, | | | | | | /[id number] | | | | | | | | 8UG | + +------+------+ +--------+--------+--------+ | Algrft Strp Bioactv | | | GLOBUS | | 10/05/ | 8115.0 | | [id number] | | | MEDICAL - | | 2019 | 120S / | | [id number]: Qty: 1 on | | | GLBU | | | | | 01/09/2017 by Kadi, | | | | | | /[id number] | | Mendez Nicole MD | | | | | | 4CG | + +------+------+ +--------+--------+--------+ | Graft Duragen 1x1in - | | | INTEGRA | | / | ID-110 | | [id number]: Qty: 1 on | | | LIFESCIENCE | | 2020 | 1 / | | 01/09/2017 by Kadi, | | | S YOLANDA - | | | /[id number] | | Mendez Nicole MD | | | YARY | | | 82 | + +------+------+ +--------+--------+--------+ | Screw Plyaxl 3.5x14mm - | | | GLOBUS | | | 1149.3 | | SnaImplanted: Qty: 6 on | | | MEDICAL - | | | 514 / | | 01/09/2017 by Kadi, | | | GLBU | | | / | | Mendez Nicole MD | | | | | | | + +------+------+ +--------+--------+--------+ | Quartex 4.0 Polyaxial Screw, | | | GLOBUS | | | 1149.4 | | 20mmImplanted: Qty: 2 on | | | MEDICAL | | | 020 / | | 01/09/2017 by Kadi, | | | | | | / | | Mendez Nicole MD | | | | | | | + +------+------+ +--------+--------+--------+ | Quartex 5.0 Polyaxial Screw, | | | GLOBUS | | | 1149.5 | | 26mmImplanted: Qty: 2 on | | | MEDICAL | | | 026 / | | 01/09/2017 by Kadi, | | | | | | / | | Mendez Nicole MD | | | | | | | + +------+------+ +--------+--------+--------+ | Quartex 5.0 Polyaxial Screw, | | | GLOBUS | | | 1149.5 | | 20mmImplanted: Qty: 2 on | | | MEDICAL | | | 020 / | | 01/09/2017 by Kadi, | | | | | | / | | Mendez Nicole MD | | | | | | | + +------+------+ +--------+--------+--------+ | Cap Yasmany Thrd - SnaImplanted: | | | GLOBUS | | | 1149.0 | | Qty: 12 on 01/09/2017 by | | | MEDICAL - | | | 001 / | | Mendez Wallis, | | | GLBU | | | / | | MD | | | | | | | + +------+------+ +--------+--------+--------+ + +------+------+ +--------+--------+--------+ | Explanted | Type | Area | Manufacture | Device | Expira | Model | | | | | r | | tion | / | | | | | | Identi | Date | Serial | | | | | | fier | | / Lot | + +------+------+ +--------+--------+--------+ | Cap Yasmany Thrd - SnaExplanted: | | | GLOBUS | | | 1149.0 | | Qty: 2 on 01/09/2017 by | | | MEDICAL - | | | 001 / | | Mendez Wallis, | | | GLBU | | | / | | MD | | | | | | | + +------+------+ +--------+--------+--------+ Results Not on filefrom Last 3 Months Insurance + +--------+ +------+-------+ + | Payer | Benefi | Subscriber | Type | Phone | Address | | | t Plan | ID | | | | | | / | | | | | | | Group | | | | | + +--------+ +------+-------+ + | MEDICARE | MEDICA | [id number] | | | [address] | | | RE | | | | [place] [address] | | | IP-OP | | | | | + +--------+ +------+-------+ + | MEDICAID | MEDICA | [id number] | | | [address] | | | ID | | | | [place] | | | [place] | | | | [address] | + +--------+ +------+-------+ + | GRADY/INUPIAT HEALTH | YELLOW | [id number] | | | | | PLANS | [place] | | | | | + +--------+ +------+-------+ + + +--------+ +--------+ + + | Guarantor Name | Accoun | Relation to | Date | Phone | Billing Address | | | t Type | Patient | of | | | | | | | | | | + +--------+ +--------+ + + | JORGE L CISNEROS | Person | Self [birth year] | Home: | [address] | | | al/Fam | | 1951 | [phone] | [place] [address] | | | blaire | | | [phone] | | + +--------+ +--------+ + +
--- OUTSIDE RECORDS SUMMARY | ~2019-01-28 | XMS | Encounter Summary ---
Demographics + + + | Address | [address] | | | [place] [address] | + + + | Home Phone [...] Team Providers + +------+ + | Care Master Police Detective Name | Role | Phone | + [...] | 12/28/ | Anesthesia | Endoscopic | Nancie Cloud CRNA | | | 2012 | Event | Procedural Unit at | [address] | | | | | Hector Sarepta [address] | [facility] | | | | | [place] | [place] [address] | | | | | [facility] Mailcode: | [phone] | | | | | [address] [place] | | | | | | [address] | | | | | | [place], [place] | | | | | | [address] | | | | | | [phone] | | | +--------+ + + + + Anesthesia Record + + + + + | Procedure Name | Responsible | Anesthesia Start | Anesthesia Stop Time | | | Anesthesiologist | Time | | + + + + + | GIP COLON (A) | Keith Peterson MD | 12/28/12 [...] + | | 1 | Pause | At 1406, prior to the beginning [...] PDT | | | | | Until 12/28/12 at 1500, | | | | | | | sedation | | | | | | + +-------+ +------+---+---+ +---+---+ | | | +---+---+ + +---------+ + +--------+---+ | propofol (aka DIPRIVAN) | New Bag | 12/29/19 | 100 [...]
--- OUTSIDE RECORDS SUMMARY | ~2019-01-28 | XMS | Encounter Summary ---
Demographics + + + | Address | [address] | | | [place] [address] | + + + | Home Phone | | + + + | Preferred Language | Unknown | + + + | Marital Status | Single | + + + | Zoroastrianism Affiliation | BAP | + + + | Race | or | + + + | Ethnic Group | Not or | + + + Author + + + | Author | [facility] | + + + | Organization | [facility] | + + + | [...] Team Providers + +------+ + | Care Service Delivery Analyst Name | Role | Phone | [...] | | 2013 | Visit | at [facility] [address] | [address] | (Primary Dx) | | | | [address] | [place], | | | | | [place] | [place] [address] | | | | | [place], | [phone] | | | | | [place] [address] | | | | | | [phone] | | | +--------+---------+ + + + [...]
--- OUTSIDE RECORDS SUMMARY | ~2019-01-28 | XMS | Encounter Summary ---
Demographics + + + | Address | [address] | | | [place] [address] | + + + | Home Phone [...] Author | [facility] | + + + | Organization | [facility] | + + + | Address | [...] Team Providers + +------+ + | Care Corporate Intern Name | Role | Phone | + +------+ + | Kita Schafer MD | PCP | | + +------+ + Encounter Details +--------+ + + + + | Date | Type | Department | Care Team | Description | +--------+ + + + + | 03/11/ | Documentati | Hematology/Medical | Moisés, | | | 2010 | on | Oncology at [facility] | MD Jorge [address] | | | | | [address] | [address], | | | | | Mailcode: CH7 | [place] [address] | | | | | [facility] | [phone] | | | | | and , | | | | | | Floor [place], [place] | | | | | | [address] | | | | | | [phone] | | | +--------+ + + + [...]
--- OUTSIDE RECORDS SUMMARY | ~2019-01-28 | XMS | Encounter Summary ---
Demographics + + + | Address | [address] | | | [place] [address] | + + + | Home Phone [...] Providers + +------+ + | Care Title I Paraprofessional Name | Role | Phone | + [...] [place] | | | | | | [facility] Mailcode: | | | | | | [id number] [place] | | | | | | [facility] | | | | | | [place], [place] | | | | | | [address] | | | | | | [phone] | | | +--------+ + + + [...]
--- OUTSIDE RECORDS SUMMARY | ~2019-01-28 | XMS | Encounter Summary ---
Demographics + + + | Address | [address] | | | [place] [address] | + + + | Home Phone [...] Team Providers + +------+ + | Care Cutter Machine Name | Role | Phone | [...] Taj | | | | | at [facility] | [facility] | | | | | [address] | [place] [address] | | | | | [facility] | | | | | | Mailcode: [id number] [address] | | | | | | Wilfrido Cisneros | | | | | | [facility], | | | | | | [place] [address] | | | | | | [phone] | | | +--------+ + + + [...]
--- OUTSIDE RECORDS SUMMARY | ~2019-01-28 | XMS | Encounter Summary ---
Demographics + + + | Address | [address] | | | [place] [address] | + + + | Home Phone [...] Team Providers + +------+ + | Care Financial Services Officer Name | Role | Phone | + [...] Radiation Oncology | Raf Smith MD | Heterotopic | | 2013 | Visit | at [facility] [address] | [address] | ossification | | | | [address] | [place], | (Primary Dx) | | | | [place] | [place] [address] | | | | | [place], | [phone] | | | | | [place] [address] | | | | | | [phone] | | | +--------+---------+ + + + [...] + documented as of this encounter Progress Raf Eden MD - 03/14/2014 7:33 PM PDTDuplicate Note [facility] documented in this en counter Plan of Treatment Not on filedocumented as of this encounter Visit Diagnoses + + | Diagnosis | + + | Heterotopic ossification - Primary | + + documented in this encounter"
--- OUTSIDE RECORDS SUMMARY | ~2019-01-28 | XMS | Encounter Summary ---
Demographics + + + | Address | [address] | | | [place] [address] | + + + | Home Phone [...] Team Providers + +------+ + | Care Musical Instrument Mechanic Name | Role | Phone | [...] 05/16/ | Documentati | Rheumatology at | [facility]y Gamb[facility] | Medication | | 2012 | on | Physicians [place] | [facility] [place] | management | | | | [address] [facility] | [address] | | | | | [facility] | | | | | | Mailcode: OP09 | | | | | | Physicians [place], | | | | | | [address] Floor | | | | | | [facility] [place] | | | | | | [address] | | | | | | [phone] | | | +--------+ + + + [...]
--- OUTSIDE RECORDS SUMMARY | ~2019-01-28 | XMS | Encounter Summary ---
Demographics + + + | Address | [address] | | | [place] [address] | + + + | Home Phone [...] Author + + + | Author | [facility] | + + + | Organization | [facility] | + + + | Address [...] Team Providers + +------+ + | Care Rail Switchman Name | Role | Phone | + +------+ + | Gracie Mariano MD | PCP | Unavailable | + +------+ + Encounter Details +--------+ + + + + | Date | Type | Department | Care Team | Description | +--------+ + + + + | 11/29/ | Telephone | Digestive Health | Adriano Chavez, | | | 2013 | | Lookout at [facility] [address] | | | | | | [address] | | | | | | Mailcode: Center | | | | | | [facility] and | | | | | | [facility] [address] | | | | | | [place], [place] | | | | | | [address] | | | | | | [phone] | | | +--------+ + + + [...]
--- OUTSIDE RECORDS SUMMARY | ~2019-01-28 | XMS | Encounter Summary ---
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 | HOSPITAL | Mailcode: | | | | | | [place], [place] | L223A | | | | | Cholecystiti | [address] | [facility] | | | | | s Ventral | Phone: | [address] | | | | | hernia | [phone] | [place], [place] | | | | | Procedures | | [address] | | | | | lap choly | | Phone: | | | | | | | [phone] | | | | | | | Fax: | | | | | | | [phone] | +--------+--------+ + + + + Encounter Details +--------+---------+ + + + | Date | Type | Department | Care Team | Description | +--------+---------+ + + + | 04/03/ | Office | Trauma Emergency | Suraj Monzon, | Cholecystitis | | 2013 | Visit | General Surgery at | [address] | (Primary Dx); | | | | PPV [address] | [facility] [address] | Diabetes mellitus | | | | [facility] [address] | [place], [place] | ([facility]); Ventral | | | | Mailcode: L223A | [address] | hernia | | | | [facility] | [phone] | | | | | [address] [place], [place] | | | | | | [address] | | | | | | [phone] | | | +--------+---------+ + + + [...] Suraj Monzon MD - 04/03/2013 3:15 PM PDTI saw and evaluated the patient. I agree wi th the findings and the plan of care as documented in the resident s note. Wound is heali ng. Of note is a previously noted midline incisional hernia from his divertulitis surgery. I spent 10 minutes with this pt., 90% in counseling him. MD SURAJ Garcia MD [facility] GENERAL SURGERY [address] [place] [address] Mailcode: [address] [place] [address] Casimiro Ball MBBS - 04/03/2013 2:18 PM PDTThe Department of Surgery EGS Clinic, Post-op Visit:Author: Angel Nuñez MD R2 Attending Physician: Dr. [...] healin g well without erythema or discharge. [place] in place. These were removed and steri strips applied. Epigastric hernia is present. Non tender and easily reducible. Pathology/Scans: Final Pathologic Diagnosis: Gallbladder and contents, cholecystectomy: - Chronic cholecystitis - Cholelithiasis ASSESSMENT: This is Jorge L Cisneros, a 62 y.o. M, who is s/p lap converted to open cholecystectomy on 03/13. His recovery has been uneventful. PLAN: 1. [place] removed from incisions. Mastisol and steri strips appiled. 2. In regards to desire for hip replacement surgery, advised to wait another month until abdominal precautions are no longer required. 2. Return to clinic: PRN Dr. Monzon has seen and examined the patient and agrees with the above plan. Signed: Angel Nuñez MD General Surgery, [address] [facility] Department of Surgery Page: [phone] documented i n this encounter Plan of [...]
--- OUTSIDE RECORDS SUMMARY | ~2019-01-28 | XMS | Encounter Summary ---
Demographics + + + | Address | [address] | | | [place] [address] | + + + | Home Phone | | + + + | Preferred Language | Unknown | + + + | Marital Status | Single | + + + | Zoroastrian Affiliation | BAP | + + + [...] Team Providers + +------+ + | Care Cost Control Supervisor Name | Role | Phone | [...] | | | | | Procedures | [place], Mailcode: | | | | | CONSULT TO | [place] [address] | OP09 | | | | | RHEUMATOLOGY | Phone: | Physicians | | | | | | [phone] | [facility] | | | | | | Fax: | Floor | | | | | | [phone] | [place], [place] | | | | | | | [address] | | | | | | | Phone: | | | | | | | [phone] | | | | | | | Fax: | | | | | | | [phone] | +--------+--------+ + + + + Encounter Details +--------+ + + + + | Date | Type | Department | Care Team | Description | +--------+ + + + + | 02/16/ | Adaptive Physical Education Specialist | Digestive Health | Harinder Felton, | 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
--- OUTSIDE RECORDS SUMMARY | ~2019-01-28 | XMS | Encounter Summary ---
Demographics + + + | Address | [address] | | | [place] [address] | + + + | Home Phone [...] Team Providers + +------+ + | Care Nurse Auditor Name | Role | Phone | [...] | | | | | capsulitis | [address] | | | | | | of right | [address] | | | | | | shoulder | Rd | | | | | | Procedures | [place], [place] | | | | | | PHYSICAL | [address] | | | | | | THERAPY | Phone: | | | | | | REFERRAL | [phone] | | | | | | | Fax: | | | | | | | [phone] | | +--------+--------+ + + + + [...] | | | Pain | [place] | [facility] | | | | | | [place] | Rd [place], | | | | | | Health | [place] | | | | | | [place] [address] | [address] | | | | | | | Phone: | | | | | | [place] | [phone] | | | | | | Way [address] | Fax: | | | | | | [address] | [phone] | | | | | | [place], | | | | | | | [place] [address] | | | | | | | Phone: | | | | | | | [phone] | | | | | | | Fax: | | | | | | | [phone] | | + +--------+ + + + + Encounter Details +--------+---------+ + + + | Date | Type | Department | Care Team | Description | +--------+---------+ + + + | 01/31/ | Office | Orthopaedics at | Leroy Treviño MD | Shoulder arthritis | | 2018 | Visit | [facility] [address] | [address] | (Primary Dx); | | | | [place] Mailcode: CH12A | [address] | Adhesive capsulitis | | | | [place] for [facility] | [place], [place] | of right shoulder | | | | and Healing, | [address] | | | | | Floor [place], [place] | [phone] | | | | | [address] | | | | | | [phone] | | | +--------+---------+ + + + [...] type II 2007 Diabetes mellitus with nephropathy ([facility]) Per outside records (10/09/2009) in media. 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 Leroy Treviño MD, [facility](C) Medicaid Specialist Department of Orthopaedics and Rehabilitation [facility] documented in this encounter Plan of Treatment [...]
--- OUTSIDE RECORDS SUMMARY | ~2019-01-28 | XMS | Encounter Summary ---
Demographics + + + | Address | [address] | | | [place] [address] | + + + | Home Phone | | + + + | Preferred Language | Unknown | + + + | Marital Status | Single | + + + | Orthodox Affiliation | BAP | + + [...] Providers + +------+ + | Care Manager Statistics Name | Role | Phone | + +------+ + | Scooby Mcclure MD | PCP | | + +------+ + Reason for Visit +--------+ + | Reason | Comments | +--------+ + | Other | orders for staple removal | +--------+ + Encounter Details +--------+ + + + + | Date | Type | Department | Care Team | Description | +--------+ + + + + | 03/09/ | Telephone | Spine Center at | Pablito Barroso MD | Other (orders for | | 2017 | | [facility] [address] | [address] | staple removal) | | | | Ave [place], [place] | [place], [place] | | | | | [address] | [address] | | | | | [phone] | [phone] | | | | | | | [...]
--- OUTSIDE RECORDS SUMMARY | ~2019-01-28 | XMS | Encounter Summary ---
Demographics + + + | Address | [address] | | | [place] [address] | + + + | Home Phone [...] Author + + + | Author | [facility] | + + + | Organization | [facility] | + + + | Address [...] Team Providers + +------+ + | Care Woodworking Machine Offbearer Name | Role | Phone | + [...] + + + + | 12/28/ | Hospital | [facility] [address] | Harinder Felton, | | | 2012 | Encounter | [address] | [address] | | | | | [facility] | [place] [address] | | | | | JYOTI MARINA | [phone] | | | | | ([facility]) | | | | | | [place] [address] | | | | | | [phone] | | | +--------+ + + + [...] + + + | Blood Pressure | 133/60 | 12/28/2012 3:49 PM | | | | | PDT | | + + + + + | Pulse | 66 | 12/28/2012 3:49 PM | | | | | PDT | | + + + + + | Temperature | 37 C (98.6 F) | 12/28/2012 2:46 PM | | | | | PDT | | + + + + + | Respiratory Rate | 16 | 12/28/2012 3:49 PM | | | | | PDT | | + + + + + | Oxygen Saturation | 97% | 12/28/2012 3:49 PM | | | | | PDT | | + + + + + | Inhaled Oxygen | - | - | | | Concentration | | | | + + + + + | Weight | 117.9 kg (260 lb) | 12/28/2012 12:10 PM | | | | | PDT | | + + + + + | Height | 167.6 cm (5' 6") | 12/28/2012 12:10 PM | | | | | PDT | | + + + + + | Body Mass Index | 41.97 | 12/28/2012 12:10 PM | | | | | PDT | | + + + + + documented in this encounter Discharge Instructions Instructions Anabel Priest RN - 12/28/2012[place] Care Instructions after Colonoscopy You may resume your normal diet and medications unless told otherwise. Medications The medications you received can cause you to be forgetful and drowsy and will take the rem ainder of the day to wear off. DO NOT drink alcohol, drive, operate heavy machinery, sign legal documents, or make major d ecisions until tomorrow. Common After Effects mild abdominal pain, bloating, and excessive gas. This is caused by the air that was pu t in your colon during the procedure. These symptoms will improve as you pass gas. Activity Light activity such as walking will help you pass the air that was put into your colon. Complications Call your GI doctor if you have: Abnormal pain or any new unexplained symptoms. Bright red rectal bleeding Fever above 101.5 Redness, pain, or swelling at your IV site that is not relieved with warm compress. For any questions related to your procedure call: Wednesday- Wednesday 8:00- 4:30 Endoscopy Toll free ext: [phone] or After business hours, or on weekends and holidays call the Hospital Forensic Engineer Toll Free 1 [phone] Ext. [phone] or and have the GI doctor eviction specialist paged. The provider who performed your procedure is: Dr. Felton Results of your exam: Biopsies were taken and sent to the lab. An ulcer was seen, not a will yp as was previously seen. This ulcer was biopsied. Recommended follow up Colonoscopy: Depending on lab results. Biopsies were taken, they will be sent to the laboratory. You and your referring doctor will get a letter with biopsy results in approximately 2 week s. Follow up Appointments with: primary care provider as needed Your primary care provider or referring provider will receive copies of the procedure repor t and all pathology reports with recommendations for treatment documented in this encounter Medications at Time [...] | + +--------+ + + + | JO MARES (ALL | Routin | 12/28/2012 | | Results for this | | SPEC TYPES EXCEPT | e | 3:30 PM | | procedure are in the | | BLOOD) | | PDT | | results section. | + +--------+ + + + | CAPILLARY BLOOD | Routin | 12/28/2012 | | Results for this | | GLUCOSE (NO CHG), | e | 12:38 PM | | procedure are in the | | POC | | PDT | | results section. | + +--------+ + + + | INR | Urgent | 12/28/2012 | | Results for this | | | | 12:24 PM | | procedure are in the | | | | PDT | | results section. | + +--------+ + + + | BASIC METABOLIC SET | Urgent | 12/28/2012 | | Results for this | | (NA, K, CL, TCO2, | | 12:24 PM | | procedure are in the | | BUN, CR, GLU, CA) | | PDT | | results section. | + +--------+ + + + | COLONOSCOPY | | 12/28/2012 | | Results for this | | | | 12:00 AM | | procedure are in the | | | | PDT | | results section. | + +--------+ + + + | SURGICAL PATHOLOGY | Routin | 12/28/2012 | | Results for this | | | e | | | procedure are in the | | | | | | results section. | + +--------+ + + + documented in this encounter Results CULTURE, AFB (ALL SPEC TYPES EXCEPT BLOOD) (12/28/2012 3:30 PM PDT) + + + + +-------- ------+ | Component | Value | Ref Range | Performed | Patholo gist | | | | | At | Signatu re | + + + + +-------- ------+ | SPECIMEN | Swab | | [facility] - | | | TYPE | | | [facility] | | | | | | [place] | | + + + + +-------- ------+ | SOURCE BODY | Colon | | [facility] | | | SITE | | | [facility] | | | | | | [place] | | + + + + +-------- ------+ | CULTURE | C AFBSource: | | [facility] | | | RESULT | Colon | | [facility] - | | | | Final | | [place] | | | | SMEAR:AFB not detected | | | | | | CULTURE RESULT:No acid | | | | | | fast bacteria isolated | | | | | | at 6 weeks. | | | | | |No acid fast bacteria isolated at 6 weeks. | | | | + + + + +-------- ------+ + + | Specimen | + + | Swab - Colon | + + + + + + + | Performing | Address | City/State/Zipcode | Phone Number | | Organization | | | | + + + + + | [facility] | [address] | [place] [address] | | | [place] | | | | + + + + + CAPILLARY BLOOD GLUCOSE (NO CHG), POC (12/28/2012 12:38 PM PDT) + +-------+ + + + [...] [facility] | [address] | [place], [place] | | | [facility] POINT OF CARE | [address] | [address] | | | TESTS | | | | + + + + + INR (12/28/2012 12:24 PM PDT) + + + + + + | Component | Value | Ref Range | Performed | Pathologist | | | | | At | Signature | + + + + + + | INR | 1.36 (H) | 0.90 - 1.20 INR | [...] | + + + + + | [facility] | [address] | [place] [address] | | | [address] [place] | [address] | | | + + + + + BASIC METABOLIC SET (NA, K, CL, TCO2, BUN, CR, GLU, CA) (12/28/2012 12:24 PM PDT) + +---------+ + + + | Component | Value | Ref Range | Performed | Pathologist | | | | | At | Signature | + +---------+ + + + | GLUCOSE, | 110 (H) | 60 - 99 mg/dL | [...] | | | LABORATORY | | | [place] | | | SERVICES, | | | [...] + + + | TOTAL CO2, | 19 (L) | 21 - 32 mmol/L | [facility] [...] + + + | ANION GAP | 14 | mmol/L | [facility] | | | | | | LABORATORY | | | | | | SERVICES, | | | | | | CORE | | + +---------+ + + + | POTASSIUM | Sl Hemo | | [facility] | | | CMNT | | | LABORATORY | | | | | | SERVICES, | | | | | | CORE | | + +---------+ + + + + + | Specimen | + + | Blood - Blood | + + + + + | Narrative | Performed At | + + + | Sample hemolyzed. Results for K, Total Bili, Direct Bili, AST, | [facility] | | LDH, or HDL may be inaccurate. Refer to comment under test result. | LABORATORY | | GFR is estimated using the MDRD equation recommended by the National | SERVICES, CORE | | Kidney Disease Education Program. Estimated GFR Interpretive | | | Information: <60 mL/min/1.73 sq m Chronic | | | Kidney Disease <15 mL/min/1.73 sq m | [...] | + + + + + | [facility] [employer] | [address] | [place] [address] | | | [address] | [address] | | | + + + + + COLONOSCOPY (12/28/2012 12:00 AM PDT) + + + | Narrative | Performed At | + + + | | | | | | + + + + + | Procedure Note | + + | Sameera Patel - 12/28/2012 6:10 PM PDT | + + SURGICAL PATHOLOGY (12/28/2012) + + + + + + | Component | Value | Ref Range | Performed | Pathologist | | | | | At | Signature | + + + + + + | SURGICAL | SOURCE OF SPECIMEN:A | | [facility] | | | PATHOLOGY | Terminal ileum | | DEPARTMENT | | | | biopsySOURCE OF | | OF | | | | SPECIMEN:B Ileocecal | | PATHOLOGY | | | | valve ulcerSOURCE OF | | | | | | SPECIMEN:C Random colon | | | | | | biopsy Final | | | | | | Pathologic | | | | | | Diagnosis:A: Terminal | | | | | | ileum, biopsy: | | | | | | - Active enteritis, mild | | | | | | (see comment) | | | | | | 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 | | | | | | The overall findings are | | | | | | non-specific but fit | | | | | | with the patternof | | | | | | inflammation known to be | | | | | | associated with | | | | | | ankylosing | | | | | | spondylitis. | | | | | | Case seen by:Melina | | | | | | Wilman Robles M.D./Surgical | | | | | | Pathology | | | | | | FellowChristopher L. | | | | | | Vaishnavi Anderson, | | | | | | Ph.D./PathologistT: | | | | | | 3/sg Clinical | | | | | | History:The patient is a | | | | | | 62-year-old | | | | | | male. 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 His | | | | | | colonoscopy wasfor polyp | | | | | | surveillance and showed | | | | | | an ulcerated and | | | | | | edematous | | | | | | ileocecalvalve. | | | | | | Gross | | | | | | Description:Received are | | | | | | 3 specimens in formalin | | | | | | in containers labeled | | | | | | with the patientname | | | | | | (initials TH) | | | | | | and: | | | | | | A: Terminal ileum | | | | | | biopsy: Received are | | | | | | 2 fragments of fried, soft | | | | | | tissuethat measure 0.5 | | | | | | x 0.3 x 0.2 cm in | | | | | | aggregate. The entire | | | | | | specimen | | | | | | issubmitted. | | | | | | B: Ileocecal valve | | | | | | ulcer: Received are 8 | | | | | | fragments of fried, soft | | | | | | tissuethat measure 1 x | | | | | | 0.3 x 0.2 cm in | | | | | | aggregate. The entire | | | | | | specimen | | | | | | issubmitted. | | | | | | C: Random colon | | | | | | biopsy: Received are | | | | | | 11 fragments of fried, | | | | | | soft tissuethat measure | | | | | | 3 x 0.6 x 0.3 cm in | | | | | | aggregate. The entire | | | | | | specimen | | | | | | issubmitted. | | | | | | Cassette | | | | | | Index:A: Terminal | | | | | | ileum | | | | | | biopsy:A1B: Ileocecal | | | | | | valve | | | | | | ulcer:B1C: Random | | | | | | colon | | | | | | biopsy:C1ML:tp | | | | | | My [...] | | | | | | Diagnostician: Jerry | | | | | | mayela Anderson | | | | | | Vaishnavi,Ph.D.PathologistEle | | | | | | ctronically Signed | | | | | | 12/30/2012 1:49PM | | | | + + + + + + + + | Specimen | + + | Tissue - Biopsy | + + + + + + + | Performing | Address | City/State/Zipcode | Phone Number | | Organization | | | | + + + + + | [facility] | [address] | [place] [address] | | | PATHOLOGY | [address] | | | + + + + + documented in this encounter Visit Diagnoses Not on filedocumented in this encounter Administered Medications + +---------+ + + +------+ | Medication Order | MAR | Action | Dose | Rate | Site | | | Action | Date | | | | + +---------+ + + +------+ | NaCl 0.9 % IV 50 mL/hr, | New Bag | 12/29/19 | 50 mL/hr | 50 mL/hr | | | intravenous, CONTINUOUS, Starting | | 13 12:58 | | | | | 12/28/12 at 1215, Until Nusrat | | PM PDT | | | | | 12/29/12 at 1107 | | | | | | + +---------+ + + +------+ +---+---+ | | | +---+---+ documented in this encounter
--- OUTSIDE RECORDS SUMMARY | ~2019-01-28 | XMS | Encounter Summary ---
Demographics + + + | Address | [address] | | | [place] [address] | + + + | Home Phone [...] Team Providers + +------+ + | Care Curing Press Maintainer Name | Role | Phone | + [...] 02/18/ | Anesthesia | 6A Intra Op [facility] | Juanc[place]os Cruz, | | | 2018 | Event | [facility] | PAINTER STRUCTURAL STEEL [address] | | | | | Admitting Desk | [facility] | | | | | Located on the 9 | [place], [place] | | | | | [facility] [address] | [address] | | | | | [facility] | [phone] | | | | | [place], [place] | | | | | | [address] | | | +--------+ + + + + Anesthesia Record + + + + + | Procedure Name | Responsible | Anesthesia Start | Anesthesia Stop Time | | | Anesthesiologist | Time | | + + + + + | POSTERIOR SPINAL | Ricky Wilson MD | 02/18/18 0724 | 02/18/18 1247 | | FUSION CERVICAL (N/A | | | | | Neck) [...] | | | 6 | | reviewed, PARTejal held, anesthetic plan made or approved by [...] RN | Lizzy Jenkins RN | | Shireen | | | | | er | [...] + +--------+ + + + | IBAN ETT | Routin | 02/18/2018 | | Results for this | | | e | 9:52 AM | | procedure are in the | | | | PDT | | results section. | + +--------+ + + + documented in this encounter Results IBAN ETT (02/18/2018 9:52 AM PDT) + + + | Narrative | Performed At | + + + | Nallely Lund CRNA 02/18/2018 10:03 AM Procedure Reason for | | | Intubation: For surgical procedure, Location Performed: [place] , | | | Patient was preoxygenated Mask Ventilation Grade 2 - Ventilated by | | | mask with oral airway/adjuvant Intubation Intubation adjuncts: | [...] fit, improved with rocuronium. Unsuccessful fiberoptic with | | | Aintree through LMA. Removed LMA and used fiberoptic loaded with | | | Aintree. Poor anatomic landmarks d/t excess soft tissue. | | | Visualized pamela, tube passed over Aintree. Tube placement | | | verified and secured. Lips, oral mucosa and teeth intact. [...] +--------+---+---+ | glycopyrrolate (ROBINUL) | Given | 02/19/20 | 0.2 mg | | | | injection INTRAPROCEDURE PRN, | | 18 11:58 | | | | | Starting 02/18/18 at 1158, | | AM PDT | [...] | | | | | | Until Wed02/18/18 [...] 50 mg | | | | Starting Wed02/18/18 at 0808, | | 18 8:08 | [...] 18 8:08 | | | | | 18 at 0808, Until Fri | | AM [...] 9:00 | | | | | Starting Wed02/18/18 at 0830, | | AM PDT | [...]
--- OUTSIDE RECORDS SUMMARY | ~2019-01-28 | XMS | Encounter Summary ---
Demographics + + + | Address | [address] | | | [place] [address] | + + + | Home Phone [...] Team Providers + +------+ + | Care Skin Care Instructor Name | Role | Phone | + +------+ + | Gracie Mariano MD | PCP | Unavailable | + +------+ + Encounter Details +--------+ + + + + | Date | Type | Department | Care Team | Description | +--------+ + + + + | 03/02/ | Anesthesia | 6A Intra Op [facility] | Anabel Schneider | | | 2013 | Event | [facility] | [address] | | | | | Admitting Desk | [facility], | | | | | Located on the | [place] [address] | | | | | [facility] [address] [facility] | | | | | | [facility] | | | | | | [place], [place] | | | | | | [address] | | | +--------+ + + + + Anesthesia Record + + + + + | Procedure Name | Responsible | Anesthesia Start | Anesthesia Stop Time | | | Anesthesiologist | Time | | + + + + + | TOTAL HIP | | | | | ARTHROPLASTY on | | | | | 03/29/2013 by Jogre | | | | | W MD Denise at [facility] | | | | | 6A [...]
--- OUTSIDE RECORDS SUMMARY | ~2019-01-28 | XMS | Encounter Summary ---
Demographics + + + | Address | [address] | | | [place] [address] | + + + | Home Phone [...] Team Providers + +------+ + | Care Locks Inspector Name | Role | Phone | + [...] + + | 12/28/ | Hospital | [facility] [address] | Harinder Felton, | | | 2012 | Encounter | [address] | [address] | | | | | [facility] | [place] [address] | | | | | JYOTI MARINA | [phone] | | | | | ([facility]) | | | | | | [place] [address] | | | | | | [phone] | | | +--------+ + + + [...] Discharge Instructions Instructions Anabel Priest RN - 12/28/2012[place] Care Instructions after Colonoscopy You may resume [...] Wednesday 8:00- 4:30 Endoscopy Toll free ext: [phone] or After business hours, or on weekends and holidays call the Hospital Rn Clinical Resource Toll Free [phone] Ext. [phone] or and have the GI doctor iron assorter paged. The provider who performed your procedure [...] + | [facility] - | [address] | [place] [address] | | | [place] | | | | + + + [...] [facility] | [address] | [place], [place] | | | JOI POINT OF CARE | [address] | [address] | | | TESTS | | | [...] | + + + + + | [facility] | [address] | [place] [address] | | | NAY KANG | [address] [...] | | | LABORATORY | | | SYRIAN | | | SERVICES, | | | [...] | + + + + + | [facility] [employer] | [address] | [place] [address] | | | NAY AKNG | [address] | | | + [...] | + + + + + | [facility] | [address] | [place] [address] | | | PATHOLOGY | [address] [...]
--- OUTSIDE RECORDS SUMMARY | ~2019-01-28 | XMS | Encounter Summary ---
Demographics + + + | Address | [address] | | | [place] [address] | + + + | Home Phone | | + + + | Preferred Language | Unknown | + + + | Marital Status | Single | + + + | Mosque Affiliation | BAP | + + + | Race | or | + + + | Ethnic Group | Not or | + + + Author + + + | Author | [facility] | + + + | Organization | [facility] | + + + | [...] Team Providers + +------+ + | Care Formation Testing Operator Name | Role | Phone | + +------+ + | Gracie Mariano MD | PCP | Unavailable | + +------+ + Encounter Details +--------+------+ + + + | Date | Type | Department | Care Team | Description | +--------+------+ + + + | 05/16/ | Lab | Laboratory, | | (ankylosing | | 2012 | | Specimen Collection | | spondylitis) ([facility]) | | | | at [facility] 3rd Floor | | | | | | [address] | | | | | | [facility] | | | | | | [place], [place] | | | | | | [address] | | | | | | [phone] | | | +--------+------+ + + + [...] + | C-REACTIVE PROTEIN | Routin | 05/16/2013 | (ankylosing | Results for this | | | e | 12:26 PM | spondylitis) ([facility]) | procedure are in the | | | | PDT | | results section. | + +--------+ + + + | SEDIMENTATION RATE | Routin | 05/16/2013 | (ankylosing | Results for this | | | e | 12:26 PM | spondylitis) ([facility]) | procedure are in the | | | | PDT | | results section. | + +--------+ + + + | HEPATITIS B SURFACE | Routin | 05/16/2013 | (ankylosing | Results for this | | AG, SERUM | e | 12:26 PM | spondylitis) ([facility]) | procedure are in the | | | | PDT | | results section. | + +--------+ + + + | HEPATITIS B CORE AB, | Routin | 05/16/2013 | (ankylosing | Results for this | | SERUM | e | 12:26 PM | spondylitis) ([facility]) | procedure are in the | | | | PDT | | results section. | + +--------+ + + + | HEPATITIS C VIRUS | Routin | 05/16/2013 | (ankylosing | Results for this | | W/CONFIRMATION | e | 12:26 PM | spondylitis) ([facility]) | procedure are in the | | [...] + | [facility] | [address] | [place] [address] | | | [place] | | | [...] | + + + + + | [facility] - | [address] | [place] [address] | | | [place] | | | | + + + [...] + | [facility] - | [address] | [place] [address] | | | [place] | | | [...] | + + + + + | [facility] | [address] | [place] [address] | | | SERVICES, NAY | [address] [...] - | | | | | | [place] | | + +---------+ + + + + + | Specimen | + + | Blood - Blood | + + + + + + + | Performing | Address | City/State/Zipcode | Phone Number | | Organization | | | | + + + + + | [facility] | [address] | [place] [address] | | | [place] | | | | + + + + + documented in this encounter Visit Diagnoses + + | Diagnosis | + + | (ankylosing spondylitis) (HCC) Ankylosing spondylitis | + + documented in this encounter"
--- OUTSIDE RECORDS SUMMARY | ~2019-01-28 | XMS | Encounter Summary ---
Demographics + + + | Address | [address] | | | [place] [address] | + + + | Home Phone | | + + + | Preferred Language | Unknown | + + + | Marital Status | Single | + + + | Confucianism Affiliation | BAP | + + + [...] Team Providers + +------+ + | Care Optics Manufacturing Technician Name | Role | Phone | [...] | | Medicine Clinic at | T, RETAIL [facility] | | | | | [facility] | | | | | | Stay [address] | | | | | | [facility] | | | | | | Mailcode: UHN65 | | | | | | [place] | | | | | | [address] [place], [place] | | | | | | [address] | | | | | | [phone] | | | +--------+ + + + [...]
--- OUTSIDE RECORDS SUMMARY | ~2019-01-28 | XMS | Encounter Summary ---
Demographics + + + | Address | [address] | | | [place] [address] | + + + | Home Phone [...] Phone | + + +---------+ + | Nalelly Cisneros | ECON | Unknown | | + + +---------+ + | Jean Funk | ECON | Unknown | Unavailable | + + +---------+ + Care Team Providers + +------+ + | Care Hospice Coordinator Name | Role | Phone | + +------+ + | Gracie Mariano MD | PCP | Unavailable | + +------+ + Encounter Details +--------+ + + + + | Date | Type | Department | Care Team | Description | +--------+ + + + + | 08/11/ | Heat Treat Worker | Orthopaedics at | Jorge Walker MD | Osteoarthrosis, hip | | 2011 | | [facility] [address] | [address] | (Primary Dx); Hip | | | | [facility] [address] | [facility] [address] | pain | | | | Mailcode: PV430 | [place], [place] | | | | | [facility] | [address] | | | | | [place], [place] | [phone] | | | | | [address] | | | | | | [phone] | | | +--------+ + + + [...]
--- OUTSIDE RECORDS SUMMARY | ~2019-01-28 | XMS | Encounter Summary ---
Demographics + + + | Address | [address] | | | [place] [address] | + + + | Home Phone | | + + + | Preferred Language | Unknown | + + + | Marital Status | Single | + + + | Episcopal Affiliation | BAP | + + + [...] Team Providers + +------+ + | Care Cooking Appliance Repair Technician Name | Role | Phone | + +------+ + | Kita Schafer MD | PCP | | + +------+ + Reason for Visit + + + | Reason | Comments | + + + | New Patient Visit | | + + + Encounter Details +--------+---------+ + + + | Date | Type | Department | Care Team | Description | +--------+---------+ + + + | 02/19/ | Office | Hematology/Medical | Moisés, | Thrombosis (Primary | | 2010 | Visit | Oncology at [facility] | MD Jorge [address] | Dx) | | | | [address] | [place], | | | | | Mailcode: [facility] | [place] [address] | | | | | [facility] | [phone] | | | | | and Zack, [facility] | | | | | | [place], [place] | | | | | | [address] | | | | | | [phone] | | | +--------+---------+ + + + [...] + + + | Blood Pressure | 168/77 | 02/19/2011 1:40 PM | | | | | PDT | | + + + + + | Pulse | 87 | 02/19/2011 1:40 PM | | | | | PDT | | + + + + + | Temperature | 36.4 C (97.5 F) | 02/19/2011 1:40 PM | | | | | PDT | | + + + + + | Respiratory Rate | 18 | 02/19/2011 1:40 PM | | | | | PDT | | + + + + + | Oxygen Saturation | - | - | | + + + + + | Inhaled Oxygen | - | - | | | Concentration | | | | + + + + + | Weight | 112.9 kg (249 lb) | 02/19/2011 1:40 PM | | | | | PDT | | + + + + + | Height | - | - | | + + + + + | Body Mass Index | 37.74 | 12/15/2010 12:10 PM | | | | | PDT | | + + + + + documented in this encounter Progress Notes Jorge Moore MD - 02/22/2011 12:44 PM PDT Hematology Clinic Problem List Antiphospholipid antibody syndrome Need for surgery while anticoagulated Impression 1. Antiphospholipid antibody syndrome - patient with several positive tests for antiphospho lipid antibodies - will repeat today but if persistently positive then would meet criteria f or antiphospholipid antibody syndrome (positive tests x 2 at least 12 weeks apart and histor y of thrombosis). This would mandate indefinite anticoagulation with either warfarin or one of the new anticoagulants that do not require monitoring or have multiple food and drug int eractions. There has been reported an increased incidence of antiphospholipid antibody synd christine in patients with ankylosis spondylosis. 2. Need [...] and stop when INR is > 2 Will follow-up with patient and referring providers when results are back. Subjective Jorge L Cisneros is a 60 year old male kindly referred by Kita Schafer MD for antiphosphol ipid antibody syndrome and need for surgery. Patient has a complex medical history of ankyl osis spondylosis and need for hip surgery. Was traveling to [facility] and back when had leg swel ling and was noted to have large DVT. Had been on anticoagulation since. Denies bleeding o r previous deep venous thrombosis. Due have a recent admit for mental status changes and we ekend but CT of the head was negative. Also had type II diabetes. Patient reports a pain l evel of 7 today. Please see scanned questionnaire for SH, FH, PMH, and ROS which I have reviewed in detail. History Substance Use Topics Smoking status: Former Smoker Smokeless tobacco: Never Used Alcohol Use: No I have reviewed the available radiology results which are notable for lupus inhibitor I have reviewed all the available laboratory results which are notable for clear chest X-ra y Current outpatient prescriptions:Aspirin 81 mg Oral Tablet, Take 81 mg by mouth once daily. , Disp: , Rfl: Diclofenac Epolamine (FLECTOR) 1.3 % Topical Adhesive Patch, Medicated, Apply 1 Patch to af fected area two times daily. Apply to most painful area. , Disp: , Rfl: FERROUS SULFATE ORAL, Take 325 mg by mouth once daily., Disp: , Rfl: LEVOTHYROXINE SODIUM (LEVOTHYROXINE ORAL), Take 500 mg by mouth once daily., Disp: , Rfl: lisinopril 5 mg Oral Tablet, Take 5 mg by mouth once daily., Disp: , Rfl: METOPROLOL SUCCINATE ORAL, Take 25 mg by mouth once daily., Disp: , Rfl: morphine CR 60 mg Oral Tablet Sustained Release, Take 60 mg by mouth every twelve hours., D isp: , Rfl: Morphine Sulfate 15 mg Oral Capsule, Take 15 mg by mouth every four hours as needed., Disp: , Rfl: simvastatin 40 mg Oral Tablet, Take 40 mg by mouth once daily in the evening., Disp: , Rfl: Allergies Allergen Reactions Penicillins Rash Codeine Rash Patient Active Problem List Diagnoses Code Osteoarthrosis, Hip 715.35M Ankylosing Spondylitis 720.0 Today's weight is 112.946 kg (249 lb). His forehead temperature is 36.4 C (97.5 F). H is blood pressure is 168/77 and his pulse is 87. His respiration is 18. Gen: Appears non-toxic but preferred to stand during visit due to leg pain SHEENT: NC/AT No Scleral icterus Neck: No JVD No nodes Lungs: Good Resp movement. Clear to A&P Cor: RRR without R,G,M ABD; Soft w/o HSM, masses or tenderness EXT: No C/C/E Neuro: Intact Psy: Appropriate Jorge Moore MD, FACP manpower development specialist, Pathology, and Pediatrics [facility] [place] documented in this encounter Plan of Treatment Not on filedocumented as of this encounter Results FERRITIN, SERUM (02/19/2011 2:34 PM PDT) + + + + + + | Component | Value | Ref Range | Performed | Pathologist | | | | | At | Signature | + + + + + + | FERRITIN | 25Comment: Ferritin | 18 - 460 ng/mL | [facility] | | | | reference intervals | | REGIONAL | | | | based on study performed | | LABORATORY | | | | at [facility], | | | | | | [place], [place]. | | | | + + + + + + + + | Specimen | + + | Blood - Blood | + + + + + | Narrative | Performed At | + + + | [facility] | [facility] | | [facility] [place] [address] | REGIONAL | | [place] [address] | LABORATORY | + + + + + + + + | Performing | Address | City/State/Zipcode | Phone Number | | Organization | | | | + + + + + | [facility] | [address] | [place] [address] | | | LABORATORY | | | | + + + + + CBC, WITH DIFFERENTIAL (02/19/2011 2:34 PM PDT) + + + + + + | Component | Value | Ref Range | Performed | Pathologist | | | | | At | Signature | + + + + + + | WHITE CELL | 11.8 (H) | 4.4 - 11.0 K/cu | [facility] | | | COUNT | | mm | DEPARTMENT | | | | | | OF | | | | | | PATHOLOGY | | + + + + + + | RED CELL | 5.82 | 4.50 - 5.90 | [facility] | | | COUNT | | M/cu mm | DEPARTMENT | | | | | | OF | | | | | | PATHOLOGY | | + + + + + + | HEMOGLOBIN | 15.3 | 13.5 - 17.5 | [facility] | | | | | g/dL | DEPARTMENT | | | | | | OF | | | | | | PATHOLOGY | | + + + + + + | HEMATOCRIT | 46.9 | 41.0 - 53.0 % | [facility] | | | | | | DEPARTMENT | | | | | | OF | | | | | | PATHOLOGY | | + + + + + + | MCV | 80.5 | 80.0 - 96.0 fL | [facility] | | | | | | DEPARTMENT | | | | | | OF | | | | | | PATHOLOGY | | + + + + + + | MCHC | 32.7 (L) | 33.4 - 35.5 | [facility] | | | | | g/dL | DEPARTMENT | | | | | | OF | | | | | | PATHOLOGY | | + + + + + + | RDW | 17.1 (H) | 11.5 - 15.0 % | [facility] | | | | | | DEPARTMENT | | | | | | OF | | | | | | PATHOLOGY | | + + + + + + | PLATELET | 309 | 150 - 400 K/cu | [facility] [...] | + + + + + | [facility] DEPARTMENT OF | [address] | [place] [address] | | | PATHOLOGY | [address] | | | + + + + + ANTI-B2 GLYCOPROTEIN 1 GMA, MISC SPECMN (02/19/2011 2:34 PM PDT) + +--------+ + + + | Component | Value | Ref Range | Performed | Pathologist | | | | | At | Signature | + +--------+ + + + | ANTI-B2GPI | < 9 | <20 Units | [facility] | | | IGG | | | DEPARTMENT | | | | | | OF | | | | | | PATHOLOGY | | + +--------+ + + + | ANTI-B2GP1 | 88 (H) | <20 Units | [facility] | | | IGM | | | DEPARTMENT | | | | | | OF | | | | | | PATHOLOGY | | + +--------+ + + + | ANTI-B2GP1 | 13 | <20 Units | [facility] | | | IGA | | | DEPARTMENT | | | | | | OF | | | | | | PATHOLOGY | | + +--------+ + + + + + | Specimen | + + | Blood - Blood | + + + + + | Narrative | Performed At | + + + | Anti-B2 Glycoprotein 1 GMA The following results were | [facility] | | obtained with the Paice QUANTA Lite B2GP1 IgGMA TRIPP. B2GP1 | DEPARTMENT OF | | IgGMA values obtained with different contact centre supervisor's assay methods | PATHOLOGY | | may not be used interchangeably. It is to be expected that | | | some samples can be anticardioplipin positive yet anti-B2GP1 | | | negative. The anti-B2GP1 test is a more specific marker of | | | thrombotic risk. Interpretive Data for Anti-B2 | | | Glycoprotein 1 G,M,A | | | Negative: ( | | | 0-19) Units Low | | | Positive: (21-35) | | | Units Moderate | | | Positive: (36-80) Units | | | High Positive: ( | | | > 80) Units | | + + + + + + + + | Performing | Address | City/State/Zipcode | Phone Number | | Organization | | | | + + + + + | [facility] DEPARTMENT | [address] | [place] [address] | | | PATHOLOGY | [address] | | | + + + + + ANTICARDIOLIPIN GMA, SERUM (02/19/2011 2:34 PM PDT) + +--------+ + + + | Component | Value | Ref Range | Performed | Pathologist | | | | | At | Signature | + +--------+ + + + | ANTICARDIOL | 25 (H) | <20 PL Units | [facility] | | | IPIN IGG | | | DEPARTMENT | | | | | | OF | | | | | | PATHOLOGY | | + +--------+ + + + | ANTICARDIOL | < 9 | <20 PL Units | [facility] | | | IPIN IGM | | | DEPARTMENT | | | | | | OF | | | | | | PATHOLOGY | | + +--------+ + + + | ANTICARDIOL | 16 (H) | <15 PL Units | [facility] | | | IPIN IGA | | | DEPARTMENT | | | | | | OF | | | | | | PATHOLOGY | | + +--------+ + + + + + | Specimen | + + | Blood - Blood | + + + + + | Narrative | Performed At | + + + | Anticardiolipin GMA Interpretive Data for | [facility] | | Anticardiolipin Antibodies IgG, IgM | DEPARTMENT OF | | Negative: | PATHOLOGY | | (<9-19) PL Units | | | Low | | | Positive: (20-30) | | | PL Units Moderate | | | Positive: (31-80) PL Units | | | High | | | Positive: ( > | | | 80) PL Units Interpretive Data for | | | Anticardiolipin Antibody IgA | | | Negative: | | | (<9-14) PL Units | | | Low | | | Positive: (15-25) | | | PL Units Moderate | | | Positive: (26-80) PL Units | | | High | | | Positive: ( > | | | 80) PL Units | | + + + + + + + + | Performing | Address | City/State/Zipcode | Phone Number | | Organization | | | | + + + + + | [facility] | [address] | [place] [address] | | | PATHOLOGY | [address] | | | + + + + + LUPUS INHIBITOR EVALUATION, PLASMA (02/19/2011 2:34 PM PDT) + + + + + + | Component | Value | Ref Range | Performed | Pathologist | | | | | At | Signature | + + + + + + | LUPUS | Consistent with | | [facility] | | | INHIBITOR | Lupus-like inhibitor. | | DEPARTMENT | | | EVAL - | | | OF | | | HEADER | | | PATHOLOGY | | + + + + + + | APTT | 56.5 (H) | 26.0 - 36.0 sec | [facility] | | | PATIENT | | | DEPARTMENT | | | | | | OF | | | | | | PATHOLOGY | | + + + + + + | HEXAGONAL | 22.5 (H) | <8.0 sec | [facility] | | | PL APTT | | | DEPARTMENT | | | | | | OF | | | | | | PATHOLOGY | | + + + + + + | DVVT | 88.4 (H) | 29.2 - 45.4 sec | [facility] | | | | | | DEPARTMENT | | | | | | OF | | | | | | PATHOLOGY | | + + + + + + | DVV CONFIRM | 0.90 | <1.20 | [facility] | | | RATIO | | | DEPARTMENT | | | | | | OF | | | | | | PATHOLOGY | | + + + + + + | HEPARIN, | < 0.05Comment: | U/mL | [facility] | | | STD LMW | Heparin, | | DEPARTMENT | | | | Either STD/LMW - | | OF | | | | Therapeutic | | PATHOLOGY | | | | Ranges: | | | | | | Heparin, | | | | | | Unfractionated: 0.35 | | | | | | - 0.70 U/mL | | | | | | Enoxaparin, | | | | | | LMWH: | | | | | | 0.70 - 1.20 | | | | | | U/mL | | | | | | Dalteparin, | | | | | | LMWH: | | | | | | 0.70 - 1.20 | | | | | | U/mL | | | | | | Tinzaparin, | | | | | | LMWH: | | | | | | Therapeutic range not | | | | | | established. | | | | | | | | | | | | | | | | | | Preliminary studies | | | | | | suggest | | | | | | range | | | | | | | | | | | | | | | | | | similar to | | | | | | dalteparin. Clinical | | | | | | | | | | | | | | | | | | | | | | | | correlation required. | | | | + + + [...] | + + + + + | [facility] | [address] | [place] [address] | | | PATHOLOGY | [address] | | | + + + + + documented in this encounter Visit Diagnoses + + | Diagnosis | + + | Thrombosis - Primary Embolism and thrombosis of unspecified site | + + documented in this encounter"
--- OUTSIDE RECORDS SUMMARY | ~2019-01-28 | XMS | Encounter Summary ---
Demographics + + + | Address | [address] | | | [place] [address] | + + + | Home Phone | | + + + | Preferred Language | Unknown | + + + | Marital Status | Single | + + + | Taoist Affiliation | BAP | + + + [...] Team Providers + +------+ + | Care Portable Irrigation Operator Name | Role | Phone | [...] | | 2013 | | Center at [facility] [address] | [address] | (Scheduling ) | | | | [address] | [place] [address] | | | | | Mailcode: [place] | [phone] | | | | | [facility] | | | | | | [facility], [place] [address] | | | | | | [place], [place] | | | | | | [address] | | | | | | [phone] | | | +--------+ + + + [...]
--- OUTSIDE RECORDS SUMMARY | ~2019-01-28 | XMS | Encounter Summary ---
Demographics + + + | Address | [address] | | | [place] [address] | + + + | Home Phone | | + + + | Preferred Language | Unknown | + + + | Marital Status | Single | + + + | Jehovah'S Witness Affiliation | BAP | + + + [...] Team Providers + +------+ + | Care In Store Marketing Associate Name | Role | Phone | [...] | | 2013 | Visit | at [facility] [address] | [address] | (Primary Dx) | | | | [address] | [place], | | | | | [place] | [place] [address] | | | | | [place], | [phone] | | | | | [place] [address] | | | | | | [phone] | | | +--------+---------+ + + + [...]
--- OUTSIDE RECORDS SUMMARY | ~2019-01-28 | XMS | Encounter Summary ---
Demographics + + + | Address | [address] | | | [place] [address] | + + + | Home Phone [...] Team Providers + +------+ + | Care Gill Net Stringer Name | Role | Phone | + [...] + + | 03/12/ | Hospital | [facility] [address] | Rosa M Smart MD | | | 2013 - | Encounter | [address] | [address] [facility] | | | | | [place] | [address] | | | 03/16/ | | [place] [address] | [place], [place] | | | 2013 | | [phone] | [address] | | | | | | [phone] | | | | | | | [...] might be different fr om the original. [facility] DISCHARGE SUMMARY & INTERDISCIPLINARY INSTRUCTIONS Patient: Jorge L Cisneros CSN: [id number] Admission Date: 03/12/2014 Discharge Date: 03/16/2014 Attending Physician: Rosa M Smart MD PCP: Gracie Mariano MD Service: [facility] Orthopaedics & Rehabilitation Diagnoses Principal Final Diagnosis: [...] wound is infected. Call [facility] Orthopedics first at [phone]. Activity Weight bear as tolerated on both [...] 10:45 AM Rosa M Smart Orthopaedics at [facility] [phone] Orthopedics PCP: As needed for any medical [...] our pleasure. Ender Phelps MD Pager # [phone] documented in this enc ounter Discharge Instructions Instructions Gifty Coffey RN - 03/16/2014Patient Education Materials: AVS paperw ork & dressing supplies. Provided patient with morphine, sennakot and miralax that were fill ed at our outpatient pharmacy. No personal belongings held in our safe. Pt. Did not have an y additional questions at this time. Patients transportation from [facility] transporting [facility] back home. Additional Instructions: Per Sarah Gee NP: Pt is to take three 1 mg warfarin tabs for a tot al of 3 mg warfarin only this evening of 03/16/2014. Patient will then resume taking his norm al dose of 6mg warfarin starting on . Patient education provided by this show card writer beti bowen these medication instructions. HANNA [...] home today Ender Phelps MD Pager # [phone] uerlinda, Rosa M Paige MD - 03/15/2014 7:55 [...] possibly tomorrow Ender Phelps MD Pager # [phone] I performed a history and physical examination of the patient and discussed his management with the resident. I reviewed the resident s note and agree with the documented findings and plan of care. ROSA M SMART MD [facility] [address] [place] [address] Rosa M Cárdenas MD - 0 03/14/2014 [...] d/w YULIANA. Ender Phelps MD Pager # [phone] I performed a history and physical examination of the patient and discussed his management with the resident. I reviewed the resident s note and agree with the documented findings and plan of care. ROSA M SMART MD [facility] [address] [facility] [place] [address] Ender Camara MD - 03/13/2014 8:08 AM [...] Dispo: pending Ender Phelps MD Pager # [phone] Rosa M Cárdenas MD - 03/12/2014 5:36 PM PDT [facility] ORTHOPAEDIC SURGERY POST OPERATIVE CHECK IDENTIFICATION: [...] treatment tomorrow Ender Phelps MD Pager # [phone] I performed a history and physical examination of the patient and discussed his management with the resident. I reviewed the resident s note and agree with the documented findings and plan of care. ROSA M SMART MD [facility] [address] [place], [place] [id number] Karen Stephen MD - 03/12/2014 12:32 PM [...] take place tomorrow prior to his meliton cedrickanselmo. Please page our department if there are [...] + | Transcriptions | + + | Amanda, Faculty - 03/20/2014 7:58 AM PDT | [...] [facility] | [address] | [place], [place] | | | JOI POINT OF CARE | [facility] | [address] | | | TESTS | | | [...] | + + + + + | [facility] | [address] | [place] [address] | | | SERVICES, CORE | GENNARO [...] | + + + + + | [facility] | [address] | [place] [address] | | | SERVICES, CORE | GENNARO [...] | | | LABORATORY | | | MALAWIAN | | | SERVICES, | | | [...] | + + + + + | [facility] LABORATORY | [address] | [place] [address] | | | SERVICES, CORE | GENNARO [...] (H) | 60 - 99 mg/dL | [facility] - | | | GLUCOSE, | [...] [facility] | [address] | [place], [place] | | | JOI POINT OF CARE | [address] | [address] | | | TESTS | | | [...] [facility] | [address] | [place], [place] | | | BABAR TAMEZ OF CARE | [facility] | [address] | | | TESTS | | | [...] | [facility] | [address] | [place], [place] | | | BABAR TAMEZ OF [facility] | [address] | [address] | | | TESTS | | | [...] + | [facility] | [address] | [place] [address] | | | SERVICES, CORE | PARK [...] | | | LABORATORY | | | MALAWIAN | | | SERVICES, | | | [...] | + + + + + | [facility] | [address] [facility] | [place] [address] | | | NAY KANG | GENNARO [...] | + + + + + | [facility] | [address] | [place] [address] | | | SERVICESNAY | [address] [...] [facility] | [address] | [place], [place] | | | BABAR TAMEZ OF CARE | [facility] | [address] | | | TESTS | | | [...] (H) | 60 - 99 mg/dL | [facility] - | | | GLUCOSE, | [...] [facility] | [address] | [place], [place] | | | JOI POINT OF CARE | [address] | [address] | | | TESTS | | | [...] [facility] | [address] | [place], [place] | | | BABAR TAMEZ OF TIUMR | [facility] | [address] | | | TESTS | | | [...] | + + + + + | [facility] | [address] | [place] [address] | | | SERVICES, CORE | GENNARO [...] | | | LABORATORY | | | MALAWIAN | | | SERVICES, | | | [...] | + + + + + | [facility] | [address] | [place] [address] | | | SERVICES, CORE | PARK [...] | + + + + + | [facility] | [address] | [place] [address] | | | SERVICES, CORE | GENNARO [...] (H) | 60 - 99 mg/dL | [facility] - | | | GLUCOSE, | [...] [facility] | [address] | [place], [place] | | | BABAR TAMEZ OF CARE | [facility] | [address] | | | TESTS | | | [...] ELLIE | [address] | [place], [place] | | | BABAR TAMEZ OF TIMUR | [address] | [address] | | | TESTS | | | [...] | AUTUMN - ELLIE | [address] | [place], [place] | | | BABAR TAMEZ OF TIMUR | [facility] | [address] | | | TESTS | | | | + + + + + CAPILLARY BLOOD GLUCOSE (NO CHG), POC (03/13/2014 9:04 AM PDT) + +-------+ + + + | Component | Value | Ref Range | Performed | Pathologist | | | | | At | Signature | + +-------+ + + + | BLOOD | 96 | 60 - 99 mg/dL | [facility] - | | | GLUCOSE, | | [...] [facility] | [address] | [place], [place] | | | JOI POINT OF CARE | [address] | [address] | | | TESTS | | | [...] [facility] | [address] | [place] [address] | | | SERVICES, CORE | PARK [...] + | [facility] | [address] | [place] [address] | | | SERVICES, CORE | PARK [...] | | | LABORATORY | | | MALAWIAN | | | SERVICES, | | | [...] | + + + + + | [facility] | [address] | [place] [address] | | | NAY KANG | GENNARO [...] ELLIE | [address] | [place], [place] | | | JOI POINT OF CARE | [address] | [address] | | | TESTS | | | [...] (H) | 60 - 99 mg/dL | [facility] - | | | GLUCOSE, | [...] [facility] | [address] | [place], [place] | | | BABAR TAMEZ OF CARE | [address] | [address] | | | TESTS | | | | + + + + + X-RAY PORTABLE PELVIS 1 VIEW (03/12/2014 12:28 PM PDT) + + + + + + | Component | Value | Ref Range | Performed | Pathologist | | | | | At | Signature | + + + + + + | X-RAY | STUDY: NM PELVIS 1 VIEW | | | | [...] [facility] | [address] | [place], [place] | | | BABAR TAMEZ OF CARE | [address] | [address] | | | TESTS | | | [...] | VENOUS, POC | | mmol/L | ELLIE | [...] | AUTUMN - ELLIE | [address] | [place], [place] | | | BABAR TAMEZ OF TIMUR | [facility] | [address] | | | TESTS | | | [...] [facility] - ELLIE | [address] | [place], [place] | | | JOI POINT OF CARE | [address] | [address] | | | TESTS | | | [...] | | POC | | mmol/L | [facility] | | | | | | BABAR [...] [facility] - ELLIE | [address] | [place], [place] | | | BABAR TAMEZ OF TIMUR | [facility] | [address] | | | TESTS | | | [...] [facility] - ELLIE | [address] | [place], [place] | | | BABAR TAMEZ OF TIMUR | [facility] | [address] | | | TESTS | | | [...] | | | POC | | | ELLIE | | | [...] ELLIE | [address] | [place], [place] | | | BABAR TAMEZ OF [facility] | [address] | [address] | | | TESTS | | | [...] | + + + + + | UATUMN [facility] | [address] | [place], [place] | | | BABAR TAMEZ OF TIMUR | [facility] | [address] | | | TESTS | | | | + + + + + HEMOGLOBIN (DIANE)LORETTA (03/12/2014 10:19 AM PDT) + +-------+ [...] ELLIE | [address] | [place], [place] | | | BABAR TAMEZ OF TIMUR | [facility] | [address] | | | TESTS | | | [...] + + + | AUTUMN [facility] | [address] | [place], [place] | | | JOI POINT OF [facility] | [address] | [address] | | | TESTS | | | [...] | + + + + + | [facility] | [address] | [place] [address] | | | NAY KANG | GENNARO [...] (H) | 60 - 99 mg/dL | [facility] - | | | GLUCOSE, | [...] [facility] | [address] | [place], [place] | | | JOI POINT OF CARE | [address] | [address] | | | TESTS | | | [...] PDT | | | | | Starting Nusrat 03/15/14 at 2055, | | | | | | | [...] AM PDT | | | | | 7/21/14 at 1300, Until | | | | [...] First dose on Wed03/12/14 at | | PM PDT | | [...] | | | | First dose on Wed03/15/14 at | | PM PDT | | [...] | | | doses, First dose on Wed03/13/14 | | PM PDT | | | | | at 2100, Last dose on Wed03/14/14 | | | | | | | at 2100 | | | | | | + +-------+ +------+---+---+ +-------+ +------+---+---+ | Given | 03/13/20 | 9 mg | | | | | 14 10:05 | | | | | | PM PDT | | | | +-------+ +------+---+---+ +---+---+ | | | +---+---+ documented in this encounter"
--- OUTSIDE RECORDS SUMMARY | ~2019-01-28 | XMS | Encounter Summary ---
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 Name | Role | Phone | + [...] | | | | | Procedures | [place], [place] | Mailcode: | | | | | CONSULT TO | [address] | OP09 | | | | | RHEUMATOLOGY | | Physicians | | | | | | | [address], [address] | | | | | | | Floor | | | | | | | [place], [place] | | | | | | | [address] | | | | | | | Phone: | | | | | | | [phone] | | | | | | | Fax: | | | | | | | [phone] | +--------+--------+ + + + + Reason [...] | ([facility]) | [facility] [place] | [place], [place] | | | | | diarrhea | [address] | [address] | | | | | eval | Phone: | | | | | | | [phone] | | | | | | | Fax: | | | | | | | [phone] | | +--------+--------+ + + + + Encounter Details +--------+---------+ + + + | Date | Type | Department | Care Team | Description | +--------+---------+ + + + | 11/20/ | Office | Digestive Health | Adriano Chavez, | 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 Inflammatory Bowel Disease Clinic [facility] ~ Initial Consultation Referring Physician: Harinder Felton [...] -colorectal anastomosis at 32cm BIOPSIES (review at [facility]): colonic mucosal with surface hyperplastic changes Colonoscopy 01/07/12 ([facility]) -hyperplastic ulcerated lesion in proximal right colon/ileocecal valve -left-sided diverticulosis -qwhl-ss-funb colorectal anastomosis at 38cm BIOPSIES (review at [facility]): mildly increased lamina propria eosinophils (not sufficient for diagnosis of adenomatous change) Colonoscopy 12/28/12 ([facility]) -ulcerated ICV (previous Bx with hyperplastic [...] + + | Performing | Address | City/[facility] | Phone Number | | Organization | | | | + +---------+ + + | [facility] DEPARTMENT OF | | | | [...]
--- OUTSIDE RECORDS SUMMARY | ~2019-01-28 | XMS | Encounter Summary ---
Demographics + + + | Address | [address] | | | [place] [address] | + + + | Home Phone [...] Team Providers + +------+ + | Care Dairy Inspector Name | Role | Phone | [...] + + + | Closed | | Anticoagulati | Diagnoses | Ron, | Hem | | | | on | | Raghavendra J, | Anticoag Ppv | | | | | Cholecystiti | MD [address] | [address] | | | | | s | [address] | Wilfrido Hernandez | | | | | Procedures | [address] | Road | | | | | CONSULT TO | [place], [place] | Physicians | | | | | ANTICOAGULAT | [address] | Pavilion | | | | | [facility] | Phone: | [address] | | | | | | [phone] | Physicians | | | | | | Fax: | Pavilion | | | | | | [phone] | [place], [place] | | | | | | | [address] | | | | | | | Phone: | | | | | | | [phone] | | | | | | | Fax: | | | | | | | [phone] | +--------+--------+ + + + + Reason for Visit AUTH/CERT +--------+--------+ + [...] + + + + | 03/10/ | Hospital | [facility] [address] | Milton Rodríguez MD | | | 2012 - | Encounter | [address] | [address] | | | | | [place], [place] | [place], | | | 03/19/ | | [address] | [place] [address] | | | 2012 | | [phone] | [phone] | | | | | | | | | | | | Jorge Walker MD | | | | | | [address] | | | | | | [place], | | | | | | [place] [address] | | | | | | [phone] | | | | | | | | | | | | Raf Tello MD | | +--------+ + + + [...] the resident s note. MILTON RODRÍGUEZ MD [facility] [address] [facility] [place] [address] romRaghavendra mantilla MD - 0 03/20/2013 3:22 PM PDT [...] of CVA. He was recently discharged from [facility] ([place], [place]) for acute cholecystitis. On 03/06/13 had sudden onset epigastric pain and self-presented to the hospital. Gallbladder US at that art e showed gallstones and possible acute cholecystitis. The patient eventually improved and wa s discharged for evaluation at [facility] EGS clinic. Prior abdominal surgery includes midline [...] might be different f rom the original. [facility] DEPARTMENT OF SURGERY EMERGENCY GENERAL SURGERY Division [...] other applicable data points. Please refer to [facility] for this information . PHYSICAL EXAM: LAST [...] resol ution of constipation [place] [phone] pager number [facility] A [address] [place] [facility] [place] [address] ez Rainey, TANK HOUSE OPERATOR - 03/17/2013 2:33 PM PDT [facility] DEPARTMENT OF SURGERY EMERGENCY GENERAL SURGERY [...] other applicable data points. Please refer to [facility] for this information . PHYSICAL EXAM: LAST [...] ABX on Probi[place]: [place] [phone] pager number [facility] A [address] [facility] [address] Anais Mccarthy MD - 03/16/2013 8:58 AM PDT [facility] DEPARTMENT OF SURGERY EMERGENCY GENERAL SURGERY Division of Trauma and Critical Care Attending Physician: Raf Tello MD Progress Note Note Date: 03/16/2013 Admission Date: 03/10/2013 JOSE RAFAEL CISNEROS, Hospital Day #6 INTERVAL HISTORY and SUBJECTIVE: No acute events overnight. No chest pain or shortness of breath. Complaining of some refl ux. Denies fevers or chills. REVIEW OF SYSTEMS: Pain controlled 11/30 Flatus: yes Tolerating diet: Tolerating regular diet Nausea/Vomiting: None Bowel movement: None Progressing with Physical Therapy None consulted The remainder of the complete review of system was negative. OBJECTIVE: I have reviewed the interval history and events. I have revewed the patients medications, l abs, vitals, and other applicable data points. Please refer to [facility] for this information . PHYSICAL EXAM: LAST [...] lovenox - Resumed warfarin, follow INR 1.38 7/24 - Maintain SCD's despite irritation given high [...] None Fluids: Saline locked Feeding: Diabetic Analgesia: AUTOMATION SPECIALIST 0.6/6mins Sedation: not indicated Thromboprophylaxis: enoxaparin, SCDs Head of bed: > 30 Ulcer prophylaxis: None Glycemic control: Insulin lispro Activity/PT/OT: Up ad farzana Yogurt: ABX on Probiotics: None TEZ RAINEY NP [facility] A [address] [place] [address] Nathalia Mccarthy MD - 03/15/2013 10:24 AM PDTFormatting of this note might be different from the origina l. [facility] DEPARTMENT OF SURGERY EMERGENCY GENERAL SURGERY Division of Trauma and Critical Care Attending Physician: Raf Tello MD Progress Note Note Date: 03/15/2013 Admission Date: 03/10/2013 JOSE RAFAEL CISNEROS, Hospital Day #5 INTERVAL HISTORY and SUBJECTIVE: No acute events overnight. Pt still complaining of some abdominal tightness. REVIEW OF SYSTEMS: Pain: Pain is still 03/01 with increased AUTOMATION SPECIALIST 03/14 Flatus: NO Tolerating diet: Tolerating clears Nausea/Vomiting: None Bowel movement: NO Progressing with Physical Therapy: None, up ad farzana. The remainder of the complete review of system was negative. OBJECTIVE: I have reviewed the interval history and events. I have revewed the patients medications, l abs, vitals, and other applicable data points. Please refer to [facility] for this information . PHYSICAL EXAM: LAST [...] chair TID Acute on Chronic Pain - AUTOMATION SPECIALIST dilaudid increase dose range and lockout. - [...] None Fluids: Saline locked Feeding: Clears Analgesia: AUTOMATION SPECIALIST 0.6/6mins Sedation: not indicated Thromboprophylaxis: enoxaparin, SCDs Head of bed: > 30 Ulcer prophylaxis: None Glycemic control: Insulin lispro Activity/PT/OT: Up ad farzana Yogurt: ABX on Probiotics: [place] [phone] pager number [facility] A [address] [place] [facility] [place] [address] Tez Lee NP - 03/14/2013 9:05 AM PDT [facility] DEPARTMENT OF SURGERY EMERGENCY GENERAL SURGERY Division of Trauma and Critical Care Attending Physician: Raf Tello MD Progress Note Note Date: 03/14/2013 Admission Date: 03/10/2013 JOSE RAFAEL CISNEROS, Hospital Day #4 INTERVAL HISTORY and SUBJECTIVE: history of chronic pain. AUTOMATION SPECIALIST with pain. Will adjust dos e and [...] other applicable data points. Please refer to [facility] for this information . PHYSICAL EXAM: LAST [...] chair TID Acute on Chronic Pain - AUTOMATION SPECIALIST dilaudid increase dose range and lockout. - [...] D51/2 with 20kl Feeding: NPO Analgesia: dilaudid AUTOMATION SPECIALIST Sedation: not indicated Thromboprophylaxis: enoxaparin 120mg bid for Antiphospholipid syndrome Head of bed: > 30 Ulcer prophylaxis: 2 Glycemic control: adequate Activity/PT/OT: Ongoing Yogurt: ABX on Probiotics: [place]INEY NP '[phone] pager number [facility] A [address] [place] [facility] [place] [address] Richie Mandel MD - 03/14/2013 1:52 AM PDT [facility] DEPARTMENT OF SURGERY EMERGENCY GENERAL SURGERY Division [...] other applicable data points. Please refer to [facility] for this information . PHYSICAL EXAM: LAST [...] NEURO: Alert, oriented, gross motor function intact, stile ripsaw operator grossly intact, LUNGS: CTAB CV: RRR, no [...] below: Likely DC george in AM, DC AUTOMATION SPECIALIST in AM Antiphospholipid antibody syndrome, chronic anticoagulation: [...] None Fluids: PO Feeding: Reg Analgesia: dilaudid automobile racer Sedation: not indicated Thromboprophylaxis: Therapeutic lovenox Head of bed: > 30 Ulcer prophylaxis: n/a Glycemic control: SSI Activity/PT/OT: Ordered. - up ad farzana TID+[place] [phone] pager number [facility] A [address] [place] [facility] [place] [address] Ricky Mosley MD - 03/13/2013 8:35 AM [...] PACU - return to [facility], R3 P Arthur Murry MD - 03/12/2013 7:10 AM PDT [facility] DEPARTMENT OF SURGERY EMERGENCY GENERAL SURGERY PROGRESS NOTE: Note Date: 03/12/2013 Admission Date: 03/10/2013 JOSE RAFAEL CISNEROS, [id number] Hospital Day #2 SUBJECTIVE: - irritation and [...] follow up: EGS TBD. ARTHUR HERRERA MD [facility] [address] [place] [address] Diagnoses: [id number] Cholecystitis [id number] Ventral hernia V72.83 Other specified pre-operative examination rthur Herrera MD - 03/11/2013 7:02 AM PDT [facility] DEPARTMENT OF SURGERY Attending Physician: Raf eTllo MD Progress Note Note Date: 03/11/2013 Admission Date: 03/10/2013 JOSE RAFAEL CISNEROS, [id number] Hospital Day #1 INTERVAL HISTORY and SUBJECTIVE: [...] other applicable data points. Please refer to [facility] for this information . PHYSICAL EXAM: Last [...] Intake/Output Summary (Last 24 hours) at 03/11/13 0702 Last data filed at 03/11/13 0500 Gross [...] 45.6 40.4* PLT 237 214 Recent Labs 03/02/136 03/10/13 1821 AST 33 42* ALT 61* 61* [...] up: EGS TBD. ARTHUR HERRERA MD Pager: [phone] [facility] [address] [place] [address] documented in this en counter [...] | + +--------+ + + + | HEMOGLOBIN-CORUSS, POC | Routin | 03/13/2013 | Cholecystitis [...] [facility] | [address] | [place] [address] | | | SERVICES, CORE | [address] | | | + + + + + MAGNESIUM, PLASMA (03/19/2013 7:22 AM PDT) + +-------+ + + + | Component | Value | Ref Range | Performed | Pathologist | | | | | At | Signature | + +-------+ + + + | MAGNESIUM,P | 2.5 | 1.8 - 2.5 mg/dL | [facility] | | | LASMA | | | [...] | + + + + + | [facility] | [address] | [place] [address] | | | SERVICES, CORE | [address] | | | + + + [...] | | | LABORATORY | | | LIBERIAN | | | SERVICES, | | | [...] the MDRD equation recommended by the | [facility] | | National Kidney Disease Education Program. [...] | + + + + + | [facility] | [address] | [place] [address] | | | SERVICES, CORE | [address] | | | + + + [...] LABORATORY | [address] | [place] [address] | | | NAY KANG | [address] | | | + + + [...] + | [facility] | [address] | [place], [place] | | | JOI POINT OF CARE | [address] | [address] | | | TESTS | | | [...] + + + | [facility] | [address] | [place], [place] | | | JOI POINT OF CARE | [address] | [address] | | | TESTS | | | [...] [facility] | [address] | [place] [address] | | | SERVICES, NAY | [address] | | | + + + [...] [facility] | [address] | [place] [address] | | | SERVICES, CORE | [address] [...] | | | LABORATORY | | | LIBERIAN | | | SERVICES, | | | [...] | + + + + + | [facility] | [address] [facility] | [place] [address] | | | NAY KANG | [address] | | | + + + [...] | + + + + + | [facility] | [address] [facility] | [place] [address] | | | SERVICES, NAY | [address] | | | + + + [...] [facility] | [address] | [place], [place] | | | JOI POINT OF CARE | [address] | [address] | | | TESTS | | | [...] + + | [facility] | [address] | [place], [place] | | | BABAR TAMEZ OF [facility] | [facility] | [address] | | | TESTS | | | [...] +---------+ + + CAPILLARY BLOOD GLUCOSE (NO CHG)LORETTA (03/17/2013 11:43 AM PDT) + +---------+ + [...] [facility] | [address] | [place], [place] | | | BABAR TAMEZ OF CARE | [address] | [address] | | | TESTS | | | [...] | + + + + + | [facility] | [address] | [place] [address] | | | SERVICES, CORE | [address] [...] 2.5 mg/dL | AUTUMN | | | REILLYMA | | | LABORATORY | | | [...] | + + + + + | [facility] | [address] | [place] [address] | | | SERVICES, CORE | [address] | | | + + + [...] | | | LABORATORY | | | LIBERIAN | | | SERVICES, | | | [...] [facility] | [address] | [place] [address] | | | SERVICES, CORE | [address] | | | + + + [...] LABORATORY | [address] | [place] [address] | | | PEARL, NAY | [address] | | | + + + + + CAPILLARY BLOOD GLUCOSE (NO CHG), POC (03/17/2013 12:22 AM PDT) + +---------+ + + + | Component | Value | Ref Range | Performed | Pathologist | | | | | At | Signature | + +---------+ + + + | BLOOD | 139 (H) | 60 - 99 mg/dL | [facility] - | | | GLUCOSE, [...] [facility] | [address] | [place], [place] | | | BABAR TAMEZ OF [place] | [facility] | [address] | | | TESTS | | | [...] [facility] | [address] | [place], [place] | | | JOI POINT OF CARE | [address] | [address] | | | TESTS | | | [...] [facility] | [address] | [place], [place] | | | BABAR TAMEZ OF CARE | [facility] | [address] | | | TESTS | | | [...] [facility] | [address] | [place] [address] | | | SERVICES, NAY | [address] | | | [...] | + + + + + | [facility] | [address] | [place] [address] | | | SERVICES, CORE | [address] | | | + + + [...] | | | LABORATORY | | | LIBERIAN | | | SERVICES, | | | [...] the MDRD equation recommended by the | [facility] | | National Kidney Disease Education Program. Estimated GFR | LABORATORY | | Interpretive Information: <60 mL/min/1.73 sq | SERVICES, [facility] | | m Chronic Kidney Disease <15 [...] | + + + + + | [facility] | [address] | [place] [address] | | | SERVICES, CORE | [address] | | | + + + + + INR (03/16/2013 6:19 AM PDT) + + + + + + | Component | Value | Ref Range | Performed | Pathologist | | | | | At | Signature | + + + + + + | INR | 1.41 (H) | 0.90 - 1.20 INR | [facility] | | | | | | LABORATORY [...] | + + + + + | [facility] | [address] | [place] [address] | | | NAY KANG | [address] | | | + + + + + CAPILLARY BLOOD GLUCOSE (NO CHG), POC (03/16/2013 6:02 AM PDT) + +---------+ + + + | Component | Value | Ref Range | Performed | Pathologist | | | | | At | Signature | + +---------+ + + + | BLOOD | 159 (H) | 60 - 99 mg/dL | [facility] - | | | GLUCOSE, [...] [facility] | [address] | [place], [place] | | | JOI POINT OF CARE | [address] | [address] | | | TESTS | | | [...] [facility] | [address] | [place], [place] | | | BABAR TAMEZ OF [place] | [facility] | [address] | | | TESTS | | | [...] | [address] | [place], [place] | | | BABAR TAMEZ OF CARE | [facility] | [address] | | | TESTS | | | [...] (H) | 60 - 99 mg/dL | [facility] - | | | GLUCOSE, [...] | [address] | [place], [place] | | | JOI POINT OF CARE | [address] | [address] | | | TESTS | | | [...] + | [facility] | [address] | [place], [place] | | | BABAR TAMEZ OF [place] | [facility] | [address] | | | TESTS | | | [...] | + + + + + | [facility] | [address] | [place] [address] | | | PEARL, [facility] | [address] | | | + + + + + OPERATION RECORD (03/15/2013 1:17 PM PDT) + + | Transcriptions | + + | Devin Gonzalez MD - 03/13/2013 2:30 PM PDT Date: 03/13/2013 | | | | Attending Surgeon: Steffen Rodríguez M.D. | | | | Floor Person(s): Devin Gonzalez MD | | Ricky Alexander [...] He was told to follow up in [facility] EGS clinic for further care. | | [...] | | The patient was taken to [facility] OR number 6 and placed in the [...] | | PD / HS | | [id number] / [id number] / [id number] / | | | | | + [...] [facility] | [address] | [place], [place] | | | BABAR TAMEZ OF [facility] | [address] | [address] | | | TESTS | | | [...] + + | [facility] | [address] [facility] | [place] [address] | | | SERVICES, NAY | [address] | | | + + + [...] [facility] | [address] | [place] [address] | | | SERVICES, NAY | [address] | | | + + + [...] | | | LABORATORY | | | LIBERIAN | | | SERVICES, | | | [...] [facility] | [address] | [place] [address] | | | SERVICES, CORE | [address] | | | + + + [...] | + + + + + | [facility] | [address] | [place] [address] | | | SERVICES, CORE | [address] [...] (H) | 60 - 99 mg/dL | [facility] - | | | GLUCOSE, [...] [facility] | [address] | [place], [place] | | | BABAR TAMEZ OF [place] | [facility] | [address] | | | TESTS | | | [...] | [address] | [place], [place] | | | BABAR TAMEZ OF CARE | [facility] | [address] | | | TESTS | | | [...] (H) | 60 - 99 mg/dL | [facility] - | | | GLUCOSE, [...] [facility] | [address] | [place], [place] | | | BABAR TAMEZ OF CARE | [address] | [address] | | | TESTS | | | [...] | + + + + + | [facility] | [address] | [place] [address] | | | NAY KANG | [address] | | | + + + [...] LABORATORY | [address] | [place] [address] | | | SERVICES, CORE | [address] [...] | | | LABORATORY | | | LIBERIAN | | | SERVICES, | | | [...] | + + + + + | [facility] | [address] | [place] [address] | | | SERVICES, CORE | [address] | | | + + + [...] | + + + + + | [facility] | [address] | [place] [address] | | | SERVICES, CORE | [address] | | | + + + [...] [facility] | [address] | [place], [place] | | | BABAR TAMEZ OF CARE | [address] | [address] | | | TESTS | | | [...] | [address] | [place], [place] | | | BABAR TAMEZ OF CARE | [address] | [address] | | | TESTS | | | [...] [facility] | [address] | [place], [place] | | | BABAR TAMEZ OF CARE | [address] | [address] | | | TESTS | | | [...] [facility] | [address] | [place], [place] | | | BABAR TAMEZ OF CARE | [address] | [address] | | | TESTS | | | [...] + | [facility] | [address] | [place] [address] | | | PEARL, CORE | [address] | | | + + + + + LACTATE (ART), POC SOR (03/13/2013 11:54 AM PDT) + +-------+ + + + | Component | Value | Ref Range | Performed | Pathologist | | | | | At | Signature | + +-------+ + + + | LACTATE POC | 1.5 | 0.5 - 1.6 | [facility] - | | | | [...] [facility] | [address] | [place], [place] | | | BABAR TAMEZ OF [facility] | [address] | [address] | | | TESTS | | | | + + + + + SODIUMLORETTA (03/13/2013 11:54 AM PDT) + +-------+ + [...] | [address] | [place], [place] | | | BABAR TAMEZ OF CARE | [address] | [address] | | | TESTS | | | | + + + + + POTASSIUM, POC (03/13/2013 11:54 AM PDT) + +-------+ [...] | [facility] | [address] | [place], [place] | | | BABAR TAMEZ OF CARE | [facility] | [address] | | | TESTS | | | | + + + + + GLUCOSE, POC (03/13/2013 11:54 AM PDT) + +---------+ + + + | Component | Value | Ref Range | Performed | Pathologist | | | | | At | Signature | + +---------+ + + + | GLUCOSE, | 227 (H) | 60 - 99 mg/dL | [facility] - | | | POC | | | [facility] | | | | | [...] [facility] | [address] | [place], [place] | | | JOI POINT OF CARE | [address] | [address] | | | TESTS | | | [...] [facility] | [address] | [place], [place] | | | BABAR TAMEZ OF [place] | [facility] | [address] | | | TESTS | | | | + + + + + MATT IONIZED CA, POC (03/13/2013 11:54 AM PDT) + + [...] - [facility] | [address] | [place], [place] | | | BABAR TAMEZ OF [place] | [facility] | [address] | | | TESTS | | | [...] % | [facility] - | | | IN POC | | | [facility] | | [...] | | | | | | BABAR TMAEZ | | | | | | OF [...] [facility] | [address] | [place], [place] | | | BABAR TAMEZ OF [place] | [address] | [address] | | | TESTS | | | [...] + | [facility] | [address] | [place], [place] | | | JOI POINT OF CARE | [facility] | [address] | | | TESTS | | | [...] [facility] | [address] | [place], [place] | | | JOI POINT OF CARE | [address] | [address] | | | TESTS | | | [...] | + + + + + | [facility] | [address] | [place] [address] | | | SERVICES, CORE | [address] | | | + + + [...] [facility] | [address] | [place], [place] | | | JOI POINT OF CARE | [address] | [address] | | | TESTS | | | [...] | | | | | | Pathology FellowDouglas | | | | | | Radha [...] cmSerosa: | | | | | | [place]un[place] with erythema | | | | | [...] | | | | | | and client representative | | | | | | [...] Weeks | | | | | | M.D.PathologistElectroni | | | | | | donald [...] + + + + | [facility] | [address] | [place] [address] | | | PATHOLOGY | [address] [...] [facility] | [address] | [place] | | | BABAR TAMEZ OF CARE | [facility] | [address] | | | TESTS | | | [...] [facility] | [address] | [place] | | | BABAR T[place] | [facility] | [address] | | | TESTS | | | [...] [facility] | [address] | [place] | | | BABAR TAMEZ OF [place] | [address] | [address] | | | TESTS | | | [...] | + + + + + | [facility] | [address] [facility] | [place] [address] | | | SERVICES, NAY | [address] | | | + + + [...] [facility] | [address] | [place], [place] | | | JOI POINT OF CARE | [address] | [address] | | | TESTS | | | [...] + | [facility] | [address] | [place], [place] | | | JOI POINT OF CARE | [address] | [address] | | | TESTS | | | [...] [facility] | [address] | [place] | | | JOI POINT OF CARE | [address] | [address] | | | TESTS | | | [...] [facility] | [address] | [place] | | | JOI POINT OF CARE | [address] | [address] | | | TESTS | | | [...] [facility] | [address] | [place] [address] | | | NAY KANG | [address] | | | + + + [...] | [address] | [place], [place] | | | [place]I [place] [facility] | [address] | [address] | | | TESTS | | | [...] [facility] | [address] | [place] [address] | | | SERVICES, | [address] [...] LABORATORY | [address] | [place] [address] | | | SERVICES, | [address] [...] | + + + + + | [facility] | [address] | [place] [address] | | | SERVICES, CORE | [address] | | | + + + + + LIPASE, PLASMA (03/10/2013 6:21 PM PDT) + +---------+ + + + | Component | Value | Ref Range | Performed | Pathologist | | | | | At | Signature | + +---------+ + + + | LIPASE | 126 (L) | 152 - 353 U/L | [facility] | | | (LAB) | [...] | + + + + + | [facility] | [address] | [place] [address] | | | SERVICES, CORE | PARK [...] | + + + + + | [facility] | [address] | [place] [address] | | | SERVICES, CORE | [address] [...] levels of 0.35 - 0.7 U/mL | [facility] | + + + + + + + + | Performing | Address | City/State/Zipcode | Phone Number | | Organization | | | | + + + + + | [facility] | [address] | [place] [address] | | | [place] | [address] | | | + + + [...] LABORATORY | [address] | [place] [address] | | | SERVICES, CORE | [address] | | | + + + + + MAGNESIUM, PLASMA (03/10/2013 6:21 PM PDT) + +-------+ + + + | Component | Value | Ref Range | Performed | Pathologist | | | | | At | Signature | + +-------+ + + + | MAGNESIUM,P | 1.9 | 1.8 - 2.5 mg/dL | [facility] | | | LASMA | | | [...] [facility] | [address] | [place] [address] | | | SERVICES, CORE | [address] [...] LABORATORY | [address] | [place] [address] | | | SERVICES, CORE | P[address] [...] | | | LABORATORY | | | [facility] | | | SERVICES, | | | [...] the MDRD equation recommended by the | RISU | | National Kidney Disease Education Program. [...] | + + + + + | [facility] | [address] | [place] [address] | | | SERVICES, CORE | [address] | | | + + + + + CAPILLARY BLOOD GLUCOSE (NO CHG), POC (03/10/2013 6:04 PM PDT) + +---------+ + + + | Component | Value | Ref Range | Performed | Pathologist | | | | | At | Signature | + +---------+ + + + | BLOOD | 195 (H) | 60 - 99 mg/dL | [facility] - | | | GLUCOSE, [...] [facility] | [address] | [place], [place] | | | [facility] | [address] | [id number] | | | TESTS | | | [...] + + + | Please click | [place] DEPT OF | | on view image for the detailed interpretation from [facility] results. | CARDIOLOGY | + + + + + | Procedure Note | + + | Interface, Cardiology Results - 03/10/2013 7:22 PM PDT Please click on view image | | for the detailed interpretation from [facility] results. | + + + + + + + | Performing | Address | City/State/Zipcode | Phone Number | | Organization | | | | + + + + + | [facility] | [address] | [place], [place] | | | CARDIOLOGY | [address] | [phone] | | + + + + + [...] Primary Cholecystitis, unspecified | + + | Ventral hernia Ventral hernia, unspecified, without mention of obstruction or | | gangrene | + + | Other specified pre-operative examination | + + documented in this encounter Administered Medications + +---------+ + +------+------+ | Medication Order | MAR | Action | Dose | Rate | Site | | | Action | Date | | | | + +---------+ + +------+------+ | acetaminophen (aka OFIRMEV) IV | New Bag | 03/13/20 | 1,000 mg | | | | 1,000 mg 1,000 mg, intravenous, | | 13 1:06 | | | | | ONCE, 1 dose, 03/13/13 at 1330 | | PM PDT | | | | + +---------+ + +------+------+ +---+---+ | | | +---+---+ + +-------+ +--------+---+---+ | acetaminophen (aka TYLENOL) | Given | 03/11/20 | 650 mg | | | | tablet 325-650 mg 325-650 mg, | | 13 8:13 | | | | | oral, EVERY 4 HOURS NEEDED, | | AM PDT | | | | | Starting 03/10/13 at 1703, | | | | | | | Until Wed03/13/13 at 1528, mild | | | | | | | pain | | | | | | + +-------+ +--------+---+---+ +---+---+ | | | +---+---+ + +-------+ +--------+---+---+ | acetaminophen (aka TYLENOL) | Given | 03/19/20 | 650 mg | | | | tablet 650 mg 650 mg, oral, | | 13 4:34 | | | | | EVERY 6 HOURS, First dose on Mon | | AM PDT | | | | | 03/13/13 at 1530, Until | | | | | | | Discontinued | | | | | | + +-------+ +--------+---+---+ +-------+ +--------+---+---+ | Given | 03/18/20 | 650 mg | | | | | 13 10:00 | | | | | | PM PDT | | | | +-------+ +--------+---+---+ | Given | 03/18/20 | 650 mg | | | | | 13 12:20 | | | | | | PM PDT | | | | +-------+ +--------+---+---+ +---+---+ | | | +---+---+ + +-------+ +-------+---+---+ | aluminum-magnesium | Given | 03/16/20 | 15 mL | | | | hydroxide-simethicone (aka | | 13 10:58 | | | | | MAALOX; MYLANTA) 200-200-20 mg/5 | | PM PDT | | | | | mL suspension 15 mL 15 mL, oral, | | | | | | | FOUR TIMES DAILY NEEDED, | | | | | | | Starting [facility] 03/16/13 at 0859, | | | | | | | Until 03/19/13 at 1945, | | | | | | | dyspepsia | | | | | | + +-------+ +-------+---+---+ +-------+ +-------+---+---+ | Given | 03/16/20 | 15 mL | | | | | 13 12:25 | | | | | | PM PDT | | | | +-------+ +-------+---+---+ +---+---+ | | | +---+---+ + +-------+ +--------+---+---+ | artificial tears (hypromellose) | Given | 03/17/20 | 1 drop | | | | (aka NATURES TEARS) 0.4 % | | 13 1:21 | | | | | ophthalmic drops 1 Drop 1 drop, | | PM PDT | | | | | Both Eyes, NEEDED, Starting | | | | | | | 03/13/13 at 2009, Until Sun | | | | | | | 03/19/13 at 1945, dry eyes | | | | | | + +-------+ +--------+---+---+ +-------+ +--------+---+---+ | Given | 03/14/20 | 1 drop | | | | | 13 8:28 | | | | | | AM PDT | | | | +-------+ +--------+---+---+ | Given | 03/13/20 | 1 drop | | | | | 13 11:53 | | | | | | PM PDT | | | | +-------+ +--------+---+---+ +---+---+ | | | +---+---+ + +-------+ +-------+---+---+ | bisacodyl (aka DULCOLAX) | Given | 03/17/20 | 10 mg | | | | suppository 10 mg 10 mg, rectal, | | 13 1:18 | | | | | ONCE, 1 dose, Wed03/17/13 at | | PM PDT | | | | | 1115 | | | | | | + +-------+ +-------+---+---+ +---+---+ | | | +---+---+ + +-------+ + +---+---+ | calcium carbonate chewable (aka | Given | 03/17/20 | 300 mg | | | | TUMS) tablet 300 mg elemental | | 13 4:39 | elementa | | | | 300 mg elemental (750 mg total | | AM PDT | l | | | | salt), oral, EVERY 2 HOURS | | | | | | | NEEDED, Starting Wed03/17/13 at | | | | | | | 0302, Until 03/19/13 at 1945, | | | | | | | dyspepsia | | | | | | + +-------+ + +---+---+ +---+---+ | | | +---+---+ + +---------+ +---------+---+---+ | cloNIDine (aka DURACLON) | New Bag | 03/13/20 | 100 mcg | | | | injection 100 mcg 100 mcg, | | 13 2:03 | | | | | intravenous, ONCE, 1 dose, Mon | | PM PDT | | | | | 03/13/13 at 1415 | | | | | | + +---------+ +---------+---+---+ + +---+ | | | + +---+ | cloNIDine (aka DURACLON) | | | injection 1 dose, Starting Mon | | | 03/13/13 at 1400, Until Mon | | | 03/13/13 at 1403 | | + +---+ | | | + +---+ + +---------+ + + +---+ | dextrose 5%-NaCl 0.45%-KCl 20 | New Bag | 03/14/20 | 75 mL/hr | 75 mL/hr | | | mEq/L IV infusion 75 mL/hr, | | 13 10:41 | | | | | intravenous, CONTINUOUS, Starting | | AM PDT | | | | | 03/14/13 at 0945, Until Wed | | | | | | | 03/15/13 at 0618 | | | | | | + +---------+ + + +---+ +---+---+ | | | +---+---+ + +-------+ +--------+---+---+ | enoxaparin (aka LOVENOX) | Given | 03/12/20 | 120 mg | | | | injection 120 mg 120 mg, | | 13 8:25 | | | | | subcutaneous, EVERY 12 HOURS, 5 | | PM PDT | | | | | doses, First dose on Wed03/10/13 | | | | | | | at 2100, Last dose on Wed03/12/13 | | | | | | | at 2100 | | | | | | + +-------+ +--------+---+---+ +-------+ +--------+---+---+ | Given | 03/12/20 | 120 mg | | | | | 13 8:36 | | | | | | AM PDT | | | | +-------+ +--------+---+---+ | Given | 03/11/20 | 120 mg | | | | | 13 9:39 | | | | | | PM PDT | | | | +-------+ +--------+---+---+ +---+---+ | | | +---+---+ + +-------+ +--------+---+---+ | enoxaparin (aka LOVENOX) | Given | 03/18/20 | 120 mg | | | | injection 120 mg 120 mg, | | 13 9:08 | | | | | subcutaneous, EVERY 12 HOURS, | | PM PDT | | | | | First dose on Wed03/13/13 at | | | | | | | 2100, Until Discontinued | | | | | | + +-------+ +--------+---+---+ +-------+ +--------+---+---+ | Given | 03/18/20 | 120 mg | | | | | 13 8:23 | | | | | | AM PDT | | | | +-------+ +--------+---+---+ | Given | 03/17/20 | 120 mg | | | | | 13 8:32 | | | | | | PM PDT | | | | +-------+ +--------+---+---+ +---+---+ | | | +---+---+ + +---------+ +--------+---+---+ | fentaNYL citrate (PF) (aka | New Bag | 03/13/20 | 50 mcg | | | | SUBLIMAZE) injection 50 mcg 50 | | 13 1:11 | | | | | mcg, intravenous, POSTPROCEDURE | | PM PDT | | | | | PRN, Starting Wed03/13/13 at | | | | | | | 1123, Until Wed03/13/13 at 1528, | | | | | | | moderate pain | | | | | | + +---------+ +--------+---+---+ +---------+ +--------+---+---+ | New Bag | 03/13/20 | 50 mcg | | | | | 13 1:07 | | | | | | PM PDT | | | | +---------+ +--------+---+---+ + +---+ | | | + +---+ | fentaNYL citrate (PF) (aka | | | SUBLIMAZE) injection 1 dose, | | | Starting Wed03/13/13 at 1258, | | | Until Wed03/13/13 at 1307 | | + +---+ | | | + +---+ + +---------+ +--------+---+---+ | HYDROmorphone (aka DILAUDID) | New Bag | 03/13/20 | 0.3 mg | | | | injection 0.2-0.5 mg 0.2-0.5 mg, | | 13 1:29 | | | | | intravenous, POSTPROCEDURE PRN, | | PM PDT | | | | | Starting Wed03/13/13 at 1123, | | | | | | | Until Wed03/13/13 at 1528, | | | | | | | moderate pain | | | | | | + +---------+ +--------+---+---+ +---------+ +--------+---+---+ | New Bag | 03/13/20 | 0.3 mg | | | | | 13 1:18 | | | | | | PM PDT | | | | +---------+ +--------+---+---+ +---+---+ | | | +---+---+ + +---------+ +--------+---+---+ | HYDROmorphone (aka DILAUDID) | New Bag | 03/11/20 | 0.5 mg | | | | injection 0.2-0.6 mg 0.2-0.6 mg, | | 13 1:07 | | | | | intravenous, EVERY 4 HOURS | | AM PDT | | | | | NEEDED, Starting Wed03/10/13 at | | | | | | | 1703, Until Wed03/13/13 at 1528, | | | | | | | moderate pain | | | | | | + +---------+ +--------+---+---+ +---+---+ | | | +---+---+ + +---------+ +------+---+---+ | HYDROmorphone (aka DILAUDID) | New Bag | 03/14/20 | 1 mg | | | | injection 1 mg 1 mg, | | 13 10:41 | | | | | intravenous, ONCE, 1 dose, Tue | | AM PDT | | | | | 03/14/13 at 0945 | | | | | | + +---------+ +------+---+---+ +---+---+ | | | +---+---+ + +---------+ +------+---+---+ | HYDROmorphone (aka DILAUDID) | New Bag | 03/16/20 | 1 mg | | | | injection 1 mg 1 mg, | | 13 10:24 | | | | | intravenous, ONCE, 1 dose, Nusrat | | AM PDT | | | | | 03/16/13 at 1030 | | | | | | + +---------+ +------+---+---+ + +---+ | | | + +---+ | HYDROmorphone (aka DILAUDID) | | | injection 1 dose, Starting Mon | | | 03/13/13 at 1258, Until Mon | | | 03/13/13 at 1318 | | + +---+ | | | + +---+ + + + +---+---+---+ | HYDROmorphone 25 mg in | Rate/Dos | 03/14/20 | | | | | preservative free NaCl 0.9% 50 mL | e Verify | 13 7:34 | | | | | [employer]OMATION [employer]IST infusion intravenous, | | AM PDT | | | | | CONTINUOUS, Starting Wed03/13/13 | | | | | | | at 1330, Until 03/14/13 at | | | | | | | 0904 | | | | | | + + + +---+---+---+ + + +--------+---+---+ | Rate/Dose Change | 03/13/20 | 0.5 mg | | | | | 13 6:44 | | | | | | PM PDT | | | | + + +--------+---+---+ | Rate/Dose Change | 03/13/20 | 0.4 mg | | | | | 13 4:57 | | | | | | PM PDT | | | | + + +--------+---+---+ +---+---+ | | | +---+---+ + + + +--------+---+---+ | HYDROmorphone 25 mg in | Rate/Dos | 03/15/20 | 0.7 mg | | | | preservative free NaCl 0.9% 50 mL | e Verify | 13 1:46 | | | | | AUTOMATION SPECIALIST infusion intravenous, | | PM PDT | | | | | CONTINUOUS, Starting Wed03/14/13 | | | | | | | at 0915, Until Wed03/16/13 at | | | | | | | 0901 | | | | | | + + + +--------+---+---+ +---------+ +--------+---+---+ | New Bag | 03/15/20 | 0.7 mg | | | | | 13 10:43 | | | | | | AM PDT | | | | +---------+ +--------+---+---+ | New Bag | 03/14/20 | | | | | | 13 3:39 | | | | | | PM PDT | | | | +---------+ +--------+---+---+ + +---+ | | | + +---+ | HYDROmorphone AUTOMATION SPECIALIST infusion 1 | | | dose, Starting 03/13/13 at | | | 1338, Until Wed03/13/13 at 1347 | | + +---+ | | | + +---+ + +-------+ + +---+---+ | insulin glargine (aka LANTUS) | Given | 03/18/20 | 10 Units | | | | injection 10 Units 10 Units, | | 13 9:17 | | | | | subcutaneous, AT BEDTIME, First | | PM PDT | | | | | dose on Nusrat 03/16/13 at 2200, | | | | | | | Until Discontinued | | | | | | + +-------+ + +---+---+ +-------+ + +---+---+ | Given | 03/17/20 | 10 Units | | | | | 13 10:55 | | | | | | PM PDT | | | | +-------+ + +---+---+ | Given | 03/17/20 | 10 Units | | | | | 13 12:00 | | | | | | AM PDT | | | | +-------+ + +---+---+ +---+---+ | | | +---+---+ + +-------+ +---------+---+---+ | insulin glargine (aka LANTUS) | Given | 03/16/20 | 5 Units | | | | injection 5 Units 5 Units, | | 13 12:25 | | | | | subcutaneous, ONCE, 1 dose, Nusrat | | PM PDT | | | | | 03/16/13 at 0945 | | | | | | + +-------+ +---------+---+---+ +---+---+ | | | +---+---+ + +-------+ +---------+---+---+ | insulin lispro (aka HUMALOG) | Given | 03/16/20 | 1 Units | | | | injection subcutaneous, WITH | | 13 6:45 | | | | | MEALS AND BEDTIME, First dose on | | AM PDT | | | | | 03/10/13 at 1815, Until | | | | | | | Discontinued | | | | | | + +-------+ +---------+---+---+ +-------+ +---------+---+---+ | Given | 03/15/20 | 1 Units | | | | | 13 11:00 | | | | | | PM PDT | | | | +-------+ +---------+---+---+ | Given | 03/15/20 | 1 Units | | | | | 13 6:07 | | | | | | PM PDT | | | | +-------+ +---------+---+---+ +---+---+ | | | +---+---+ + +-------+ +---------+---+---+ | insulin lispro (aka HUMALOG) | Given | 03/18/20 | 1 Units | | | | injection subcutaneous, WITH | | 13 9:16 | | | | | MEALS AND BEDTIME, First dose on | | PM PDT | | | | | Nusrat 03/16/13 at 1200, Until | | | | | | | Discontinued | | | | | | + +-------+ +---------+---+---+ +-------+ +---------+---+---+ | Given | 03/18/20 | 2 Units | | | | | 13 12:21 | | | | | | PM PDT | | | | +-------+ +---------+---+---+ | Given | 03/17/20 | 1 Units | | | | | 13 10:55 | | | | | | PM PDT | | | | +-------+ +---------+---+---+ +---+---+ | | | +---+---+ + +---------+ +-------+-------+---+ | lactated ringers IV 100 mL/hr, | New Bag | 03/13/20 | 100 | 100 | | | intravenous, CONTINUOUS, | | 13 2:51 | mL/hr | mL/hr | | | Starting 03/12/13 at 1000, | | AM PDT | | | | | Until 03/13/13 at 1327 | | | | | | + +---------+ +-------+-------+---+ +---+---+ | | | +---+---+ + +---------+ + + +---+ | lactated ringers IV 75 mL/hr, | New Bag | 03/14/20 | 75 mL/hr | 75 mL/hr | | | intravenous, CONTINUOUS, Starting | | 13 1:19 | | | | | 03/13/13 at 1330, Until Tue | | AM PDT | | | | | 03/14/13 at 0914 | | | | | | + +---------+ + + +---+ +---------+ + + +---+ | New Bag | 03/13/20 | 75 mL/hr | 75 mL/hr | | | | 13 4:55 | | | | | | PM PDT | | | | +---------+ + + +---+ +---+---+ | | | +---+---+ + +-------+ +--------+---+---+ | levothyroxine tablet 50 mcg 50 | Given | 03/19/20 | 50 mcg | | | | mcg, oral, DAILY, First dose on | | 13 9:11 | | | | | 03/11/13 at 0700, Until | | AM PDT | | | | | Discontinued | | | | | | + +-------+ +--------+---+---+ +-------+ +--------+---+---+ | Given | 03/18/20 | 50 mcg | | | | | 13 8:20 | | | | | | AM PDT | | | | +-------+ +--------+---+---+ | Given | 03/17/20 | 50 mcg | | | | | 13 9:24 | | | | | | AM PDT | | | | +-------+ +--------+---+---+ +---+---+ | | | +---+---+ + +-------+ +-------+---+---+ | lisinopril (aka PRINIVIL) | Given | 03/19/20 | 10 mg | | | | tablet 10 mg 10 mg, oral, DAILY, | | 13 9:11 | | | | | First dose on [facility] 03/16/13 at | | AM PDT | | | | | 1100, Until Discontinued | | | | | | + +-------+ +-------+---+---+ +-------+ +-------+---+---+ | Given | 03/18/20 | 10 mg | | | | | 13 8:21 | | | | | | AM PDT | | | | +-------+ +-------+---+---+ | Given | 03/17/20 | 10 mg | | | | | 13 9:24 | | | | | | AM PDT | | | | +-------+ +-------+---+---+ +---+---+ | | | +---+---+ + +-------+ +--------+---+---+ | magnesium citrate liquid 296 mL | Given | 03/18/20 | 296 mL | | | | 296 mL, oral, ONCE, 1 dose, Sat | | 13 3:47 | | | | | 03/18/13 at 1615 | | PM PDT | | | | + +-------+ +--------+---+---+ +---+---+ | | | +---+---+ + +---------+ +-----+---+---+ | magnesium sulfate IV 4 g 4 g, | New Bag | 03/14/20 | 4 g | | | | intravenous, ONCE, 1 dose, Tue | | 13 10:41 | | | | | 03/14/13 at 1030 | | AM PDT | | | | + +---------+ +-----+---+---+ +---+---+ | | | +---+---+ + +-------+ +-------+---+---+ | metoprolol tartrate (aka | Given | 03/19/20 | 25 mg | | | | LOPRESSOR) tablet 25 mg 25 mg, | | 13 9:11 | | | | | oral, TWICE DAILY, First dose on | | AM PDT | | | | | 03/10/13 at 2100, Until | | | | | | | Discontinued | | | | | | + +-------+ +-------+---+---+ +-------+ +-------+---+---+ | Given | 03/18/20 | 25 mg | | | | | 13 9:08 | | | | | | PM PDT | | | | +-------+ +-------+---+---+ | Given | 03/18/20 | 25 mg | | | | | 13 8:20 | | | | | | AM PDT | | | | +-------+ +-------+---+---+ +---+---+ | | | +---+---+ + +-------+ +-------+---+---+ | morphine (aka MS IR) oral dose | Given | 03/10/20 | 15 mg | | | | 7.5-30 mg 7.5-30 mg, oral, EVERY | | 13 6:31 | | | | | 4 HOURS NEEDED, Starting Fri | | PM PDT | | | | | 03/10/13 at 1819, Until Fri | | | | | | | 03/10/13 at 1858, moderate pain | | | | | | + +-------+ +-------+---+---+ +---+---+ | | | +---+---+ + +-------+ +-------+---+---+ | morphine (aka MS IR) tablet 15 | Given | 03/13/20 | 15 mg | | | | mg 15 mg, oral, EVERY 4 HOURS | | 13 6:31 | | | | | NEEDED, Starting Wed03/10/13 at | | AM PDT | | | | | 1857, Until 03/13/13 at 1528, | | | | | | | moderate pain | | | | | | + +-------+ +-------+---+---+ +-------+ +-------+---+---+ | Given | 03/12/20 | 15 mg | | | | | 13 8:31 | | | | | | PM PDT | | | | +-------+ +-------+---+---+ | Given | 03/12/20 | 15 mg | | | | | 13 8:30 | | | | | | PM PDT | | | | +-------+ +-------+---+---+ +---+---+ | | | +---+---+ + +-------+ +-------+---+---+ | morphine (aka MS IR) tablet | Given | 03/18/20 | 30 mg | | | | 15-30 mg 15-30 mg, oral, EVERY 3 | | 13 9:08 | | | | | HOURS NEEDED, Starting Nusrat | | PM PDT | | | | | 03/16/13 at 0954, Until Sun | | | | | | | 03/19/13 at 1945, severe pain | | | | | | + +-------+ +-------+---+---+ +-------+ +-------+---+---+ | Given | 03/18/20 | 30 mg | | | | | 13 12:26 | | | | | | PM PDT | | | | +-------+ +-------+---+---+ | Given | 03/17/20 | 30 mg | | | | | 13 10:55 | | | | | | PM PDT | | | | +-------+ +-------+---+---+ +---+---+ | | | +---+---+ + +-------+ +-------+---+---+ | omeprazole (aka PRILOSEC) | Given | 03/19/20 | 20 mg | | | | capsule 20 mg 20 mg, oral, | | 13 9:11 | | | | | DAILY, First dose on Wed03/17/13 | | AM PDT | | | | | at 0900, Until Discontinued | | | | | | + +-------+ +-------+---+---+ +-------+ +-------+---+---+ | Given | 03/18/20 | 20 mg | | | | | 13 8:20 | | | | | | AM PDT | | | | +-------+ +-------+---+---+ | Given | 03/17/20 | 20 mg | | | | | 13 9:24 | | | | | | AM PDT | | | | +-------+ +-------+---+---+ +---+---+ | | | +---+---+ + +-------+ +------+---+---+ | phytonadione (aka VITAMIN K, | Given | 03/12/20 | 5 mg | | | | MEPHYTON) tablet 5 mg 5 mg, | | 13 8:36 | | | | | oral, DAILY, 2 doses, First dose | | AM PDT | | | | | on 03/11/13 at 0900, Last dose | | | | | | | on 03/12/13 at 0900 | | | | | | + +-------+ +------+---+---+ +-------+ +------+---+---+ | Given | 03/11/20 | 5 mg | | | | | 13 8:12 | | | | | | AM PDT | | | | +-------+ +------+---+---+ +---+---+ | | | +---+---+ + +-------+ +------+---+---+ | polyethylene glycol (aka | Given | 03/19/20 | 17 g | | | | MIRALAX) powder 17 g 17 g, oral, | | 13 9:10 | | | | | DAILY, First dose on [facility] 03/16/13 | | AM PDT | | | | | at 1145, Until Discontinued | | | | | | + +-------+ +------+---+---+ +-------+ +------+---+---+ | Given | 03/18/20 | 17 g | | | | | 13 8:20 | | | | | | AM PDT | | | | +-------+ +------+---+---+ | Given | 03/17/20 | 17 g | | | | | 13 9:23 | | | | | | AM PDT | | | | +-------+ +------+---+---+ +---+---+ | | | +---+---+ + +-------+ + +---+---+ | potassium & sodium phosphates | Given | 03/17/20 | 1 packet | | | | (stu ARCHERA-PHOS, BOBBY-NAK) | | 13 8:32 | | | | | 280-160-250 mg packet 1 Packet 1 | | PM PDT | | | | | packet, oral, TWICE DAILY, 6 | | | | | | | doses, First dose on Wed03/15/13 | | | | | | | at 1400, Last dose on Wed03/17/13 | | | | | | | at 2100 | | | | | | + +-------+ + +---+---+ +-------+ + +---+---+ | Given | 03/17/20 | 1 packet | | | | | 13 9:23 | | | | | | AM PDT | | | | +-------+ + +---+---+ | Given | 03/16/20 | 1 packet | | | | | 13 8:52 | | | | | | PM PDT | | | | +-------+ + +---+---+ +---+---+ | | | +---+---+ + +-------+ + +---+---+ | senna-docusate (stu ESCALANTE S) | Given | 03/19/20 | 1 tablet | | | | 8.6-50 mg 1 Tab 1 tablet, oral, | | 13 9:11 | | | | | TWICE DAILY, First dose on Wed | | AM PDT | | | | | 03/16/13 at 1145, Until | | | | | | | Discontinued | | | | | | + +-------+ + +---+---+ +-------+ + +---+---+ | Given | 03/18/20 | 1 tablet | | | | | 13 9:08 | | | | | | PM PDT | | | | +-------+ + +---+---+ | Given | 03/18/20 | 1 tablet | | | | | 13 8:20 | | | | | | AM PDT | | | | +-------+ + +---+---+ +---+---+ | | | +---+---+ + +-------+ +-------+---+---+ | simethicone chew (stu MYJOHN) | Given | 03/17/20 | 80 mg | | | | tablet 80 mg 80 mg, oral, THREE | | 13 9:23 | | | | | TIMES DAILY NEEDED, Starting | | AM PDT | | | | | Nusrat 03/16/13 at 0954, Until Sun | | | | | | | 03/19/13 at 1945, bloating | | | | | | + +-------+ +-------+---+---+ +---+---+ | | | +---+---+ + +-------+ +---+---+---+ | triamcinolone acetonide (aka | Given | 03/14/20 | | | | | KENALOG) 0.025 % cream topical, | | 13 6:21 | | | | | FOUR TIMES DAILY NEEDED, | | PM PDT | | | | | Starting 03/12/13 at 0930, | | | | | | | Until 03/19/13 at 1945, itch | | | | | | + +-------+ +---+---+---+ +-------+ +---+---+---+ | Given | 03/14/20 | | | | | | 13 8:28 | | | | | | AM PDT | | | | +-------+ +---+---+---+ | Given | 03/14/20 | | | | | | 13 4:21 | | | | | | AM PDT | | | | +-------+ +---+---+---+ +---+---+ | | | +---+---+ + +-------+ +-------+---+---+ | warfarin (aka COUMADIN) tablet | Given | 03/16/20 | 10 mg | | | | 10 mg 10 mg, oral, EVERY | | 13 8:53 | | | | | EVENING, 1 dose, First dose on | | PM PDT | | | | | Nusrat 03/16/13 at 2100 | | | | | | + +-------+ +-------+---+---+ +---+---+ | | | +---+---+ + +-------+ +------+---+---+ | warfarin (aka COUMADIN) tablet | Given | 03/13/20 | 5 mg | | | | 5 mg 5 mg, oral, EVERY EVENING, | | 13 8:57 | | | | | First dose on Wed03/13/13 at | | PM PDT | | | | | 2100, Until Discontinued | | | | | | + +-------+ +------+---+---+ +---+---+ | | | +---+---+ + +-------+ +------+---+---+ | warfarin (aka COUMADIN) tablet | Given | 03/18/20 | 5 mg | | | | 5 mg 5 mg, oral, EVERY EVENING, | | 13 9:08 | | | | | First dose on Wed03/18/13 at | | PM PDT | | | | | 2100, Until Discontinued | | | | | | + +-------+ +------+---+---+ +---+---+ | | | +---+---+ + +-------+ +--------+---+---+ | warfarin (aka COUMADIN) tablet | Given | 03/15/20 | 7.5 mg | | | | 7.5 mg 7.5 mg, oral, EVERY | | 13 8:29 | | | | | EVENING, First dose on Wed | | PM PDT | | | | | 03/14/13 at 2100, Until | | | | | | | Discontinued | | | | | | + +-------+ +--------+---+---+ +-------+ +--------+---+---+ | Given | 03/14/20 | 7.5 mg | | | | | 13 8:42 | | | | | | PM PDT | | | | +-------+ +--------+---+---+ +---+---+ | | | +---+---+ + +-------+ +--------+---+---+ | warfarin (aka COUMADIN) tablet | Given | 03/17/20 | 7.5 mg | | | | 7.5 mg 7.5 mg, oral, EVERY | | 13 8:32 | | | | | EVENING, First dose on Fri | | PM PDT | | | | | 03/17/13 at 2100, Until | | | | | | | Discontinued | | | | | | + +-------+ +--------+---+---+ +---+---+ | | | +---+---+ documented in this encounter
--- OUTSIDE RECORDS SUMMARY | ~2019-01-28 | XMS | Encounter Summary ---
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 | [place], | Phone: | | | | | ([facility]) | [place] [address] | [phone] | | | | | Procedures | Phone: | Fax: | | | | | REQUEST TO | [phone] | [phone] | | | | | SURGERY | Fax: | | | | | | [facility] | [phone] | | | | | | [place] TOTAL HIP | | | | | [...] | | 2011 | Enc-IP | PPV [address] | [address] | | | | | [facility] | [facility] | | | | | Mailcode: [id number] | [facility] [place] | | | | | Physician's [place] | [address] | | | | | [place], [place] | [phone] | | | | | | | | | | | [phone] | | | +--------+ + + + [...]
--- OUTSIDE RECORDS SUMMARY | ~2019-01-28 | XMS | Encounter Summary ---
Demographics + + + | Address | [address] | | | [place] [address] | + + + | Home Phone [...] + + + | Author | [facility] | + + + | Organization | [facility] | + + + | [...] Team Providers + +------+ + | Care Food Supervisor Name | Role | Phone | + +------+ + | Gracie Mariano MD | PCP | Unavailable | + +------+ + Encounter Details +--------+ + + + + | Date | Type | Department | Care Team | Description | +--------+ + + + + | 11/10/ | Hospital | Radiology/Imaging | | | | 2015 | Encounter | Lab at [facility] [address] | | | | | | João Myrick Mailcode: | | | | | | [address] | | | | | | [facility], | | | | | | [facility] Floor [place], | | | | | | [place] [address] | | | | | | [phone] | | | +--------+ + + + [...]
--- OUTSIDE RECORDS SUMMARY | ~2019-01-28 | XMS | Encounter Summary ---
Demographics + + + | Address | [address] | | | [place] [address] | + + + | Home Phone [...] Team Providers + +------+ + | Care Board Operator Name | Role | Phone | [...] Pharmacy | | | | | | [address] | | | | | | [facility] | | | | | | [place], [place] | | | | | | [address] | | | +--------+ + + + [...]
--- OUTSIDE RECORDS SUMMARY | ~2019-01-28 | XMS | Encounter Summary ---
Demographics + + + | Address | [address] | | | [place] [address] | + + + | Home Phone [...] Team Providers + +------+ + | Care Percussion Tuner Name | Role | Phone | + [...] Closed | | Radiology | Diagnoses | Scott | Rad | | | | | Nonspecific | MD Adriano | Ultrasound | | | | | elevation | [address] | [address] | | | | | of levels of | Ave | [address] | | | | | | [place], [place] | Mailcode: | | | | | transaminase | [address] | [facility] | | | | | or lactic | | for Health | | | | | acid | | and Healing, | | | | | dehydrogenas | | 3rd Floor | | | | | e (LDH) | | [place], [place] | | | | | Procedures | | [address] | | | | | US ABDOMEN | | Phone: | | | | | LIMITED | | [phone] | | | | | | | Fax: | | | | | | | [phone] | +--------+--------+ + + + + Encounter Details +--------+ + + + + | Date | Type | Department | Care Team | Description | +--------+ + + + + | 12/07/ | Hospital | Diagnostic | | | | 2013 | Encounter | Radiology at [facility] | | | | | | [address] | | | | | | [facility] | | | | | | Mailcode: PV450 | | | | | | [facility] | | | | | | [place], [place] | | | | | | [address] | | | | | | [phone] | | | +--------+ + + + [...] | | | | ana laura / WLALACE | | | | | | ESTELA [...]
--- OUTSIDE RECORDS SUMMARY | ~2019-01-28 | XMS | Encounter Summary ---
Demographics + + + | Address | [address] | | | [place] [address] | + + + | Home Phone [...] Team Providers + +------+ + | Care Small Engine Mechanic Name | Role | Phone | + +------+ + | Gracie Mariano MD | PCP | Unavailable | + +------+ + Encounter Details +--------+ + + + + | Date | Type | Department | Care Team | Description | +--------+ + + + + | 11/10/ | Hospital | Radiology/Imaging | | Canceled (Scheduling | | 2016 | Encounter | Lab at [facility] [address] | | error) | | | | João Myrick Mailcode: | | | | | | [facility] | | | | | | Health and Healing, | | | | | | 3rd Floor [place], | | | | | | [place] [address] | | | | | | [phone] | | | +--------+ + + + [...] | X-RAY SHOULDER 3+ | Routin | 11/11/2015 | | Results for this | | VIEWS RIGHT | e | 11:13 AM | | procedure are in the | | | | PDT | | results section. | + +--------+ + + + documented in this encounter Results X-RAY SHOULDER 3+ VIEWS RIGHT (11/11/2015 11:13 AM PDT) + + + + + + | Component | Value | Ref Range | Performed | Pathologist | | | | | At | Signature | + + + + + + | SHOULDER 3+ | EXAM: SHOULDER 3 VIEWS | | | | | VIEWS | RIGHT 11/11/15 11:13:00 | | | | | RIGHT | HISTORY: Pain. | | | | | | Ankylosing spondylitis | | | | | | COMPARISON: Chest | | | | | | radiograph 03/10/2013 | | | | | | FINDINGS:There is | | | | | | widening of the | | | | | | acromioclavicular joint | | | | | | space, measuring 10 mm. | | | | | | themild deformity is | | | | | | seen of the distal | | | | | | clavicle possibly | | | | | | representing a | | | | | | priorhealed fracture. No | | | | | | acute fracture or focal | | | | | | destruction is | | | | | | observed. | | | | | | Smallcorticated ossicles | | | | | | are seen within the | | | | | | acromioclavicular | | | | | | joints. There | | | | | | isprominent bone | | | | | | formation seen at the | | | | | | undersurface of the | | | | | | clavicle and at | | | | | | thecoracoid at the | | | | | | region of the | | | | | | coracoclavicular | | | | | | ligaments. The | | | | | | glenohumeraljoint is | | | | | | mildly narrowed with | | | | | | prominent inferior | | | | | | glenoid | | | | | | spurring.Well-corticated | | | | | | ossicles project | | | | | | superior to the humeral | | | | | | head, | | | | | | eitherrepresentative of | | | | | | intra-articular bodies, | | | | | | heterotopic ossification | | | | | | orenthesopathy of the | | | | | | coracoacromial ligament. | | | | | | The acromiohumeral | | | | | | interval isnormal. No | | | | | | fracture or focal | | | | | | destruction is observed. | | | | | | Soft tissues are | | | | | | withinnormal limits. | | | | | | IMPRESSION: 1. Sequelae | | | | | | of grade 2 | | | | | | acromioclavicular | | | | | | separation. 2. Prominent | | | | | | bone formation in the | | | | | | region of the | | | | | | coracoclavicular | | | | | | ligamenteither | | | | | | represents enthesopathy | | | | | | secondary to ankylosing | | | | | | spondylitis | | | | | | orheterotopic | | | | | | ossification from prior | | | | | | injury. 3. Mild | | | | | | glenohumeral joint space | | | | | | narrowing and spurring | | | | | | either | | | | | | representsarthropathy of | | | | | | ankylosing spondylitis | | | | | | or degenerative joint | | | | | | disease. 4. | | | | | | Intra-articular | | | | | | glenohumeral bodies, | | | | | | heterotopic ossicles or | | | | | | coracoacromialenthesopat | | | | | | hy. Attending | | | | | | Radiologists: GRADY | | | | | | JONY GUTIERREZuthor: | | | | | | WILFRID VALDEZ MD I | | | | | | personally reviewed the | | | | | | images and, if | | | | | | necessary, edited the | | | | | | report. I agreewith the | | | | | | report as now presented. | | | | | | | | | | | | Final/Electronically | | | | | | signed / GRADY | | | | | | MATT 11/11/2015 | | | | | | 12:18 PM | | | | + + + + + + + + | Specimen | + + | | + + + +---------+ + + | Performing | Address | City/State/Zipcode | Phone Number | | Organization | | | | + +---------+ + + | [facility] DEPARTMENT OF | | | | | RADIOLOGY | | | | + +---------+ + + documented in this encounter Visit Diagnoses + + | Diagnosis | + + | Right shoulder pain, unspecified chronicity | + + documented in this encounter"
--- OUTSIDE RECORDS SUMMARY | ~2019-01-28 | XMS | Encounter Summary ---
Demographics + + + | Address | [address] | | | [place] [address] | + + + | Home Phone [...] + + + | Author | [facility] | + + + | Organization | [facility] | + + + | [...] Team Providers + +------+ + | Care Cement Mason Apprentice Name | Role | Phone | [...] [address] | | | | | | [facility] [address] | | | | | | Mailcode: PV450 | | | | | | [facility] | | | | | | [place], [place] | | | | | | [address] | | | | | | [phone] | | | +--------+ + + + [...]
--- OUTSIDE RECORDS SUMMARY | ~2019-01-28 | XMS | Encounter Summary ---
Demographics + + + | Address | [address] | | | [place] [address] | + + + | Home Phone [...] Team Providers + +------+ + | Care Configuration Developer Name | Role | Phone | [...] [address] | | | | | [facility] [address] | [facility] | | | | | Mailcode: [id number] | [place], [place] | | | | | [facility] | [address] | | | | | [place], [place] | [phone] | | | | | [address] | | | | | | [phone] | | | +--------+ + + + [...]
--- OUTSIDE RECORDS SUMMARY | ~2019-01-28 | XMS | Encounter Summary ---
Demographics + + + | Address | [address] | | | [place] [address] | + + + | Home Phone [...] Author + + + | Author | [facility] | + + + | Organization | [facility] | + + + | Address | [...] Providers + +------+ + | Care Passenger Screener Name | Role | Phone | + [...] | | | | | Osteoarthros | Eastern | [address] | | | | | is, hip Hip | [facility] | [place] | | | | | pain, | & Fractur | [address], | | | | | bilateral | [address] | [place] | | | | | Ankylosing | [address] | [address] | | | | | spondylitis | [place], | Phone: | | | | | ([facility]) | [place] [address] | [phone] | | | | | Procedures | Phone: | Fax: | | | | | REQUEST TO | [phone] | [phone] | | | | | SURGERY | Fax: | | | | | | SUPERVISOR PASTE PLANT | [phone] | | | | | | LA TOTAL HIP | | | | | [...] Denise, | | | | | DJD | Quang Christensen, | Jorge Paige MD | | | | | (degenerativ | Eastern | [address] | | | | | e joint | [facility] | [facility] | | | | | disease) of | & Fractur | [address], | | | | | hip DJD in | [address] | [place] | | | | | hips | [address] | [address] | | | | | | [place], | Phone: | | | | | | [place] [address] | [phone] | | | | | | Phone: | Fax: | | | | | | [phone] | [phone] | | | | | | Fax: | | | | | | | [phone] | | +--------+--------+ + + + + Encounter Details +--------+---------+ + + + | Date | Type | Department | Care Team | Description | +--------+---------+ + + + | 04/28/ | Office | Orthopaedics at | Jorge Smart MD | Osteoarthrosis, hip; | | 2011 | Visit | [facility] [address] | [address] | Hip pain, | | | | [facility] | [facility] | bilateral; | | | | Mailcode: [id number] | [facility] [place] | Ankylosing | | | | [facility] | [address] | spondylitis (HCC) | | | | [facility] [place] | [phone] | | | | | [address] | | | | | | [phone] | | | +--------+---------+ + + + [...] | 113.9 kg (251 lb) | 04/28/2012 3:01 PM | | | | | PDT | | + + + + + | Height | 172.7 cm (5' 8") | 04/28/2012 3:01 PM | | | | | PDT | | + + + + + | Body Mass Index | 38.16 | 04/28/2012 3:01 PM | | | | | PDT | | + + + + + documented in this encounter Progress Notes Jorge Smart MD - 04/28/2012 6:22 PM PDTI performed a history and physical examination of the patient and discussed his management with the resident. I reviewed the resident s note and agree with the documented findings and plan of care. Consent obtained today and preop in [facility] arranged. Intake placed for complex left SUSHIL. He will need a SNF stay and if all goes well he may have the right side a few weeks later. JORGE SMART MD [facility] [address] [facility] Mailcode: [id number] Phys[facility] [id number] Ender Camara MD - 04/28/2012 3:53 PM PDTOrthopaedics Note Jorge L Cisneros presents to clinic today. He is a 61 y/o M with ankylosing spondylitis and sev ere bilateral hip DJD who was previously indicated for bilateral SUSHIL. This surgery was cance lled due to ongoing dental issues as well as large right lower extremity DVT. He was subsequ ently found to have antiphospholipid antibody syndrome and was started on Coumadin, which he will be on throughout his lifetime. There has been some confusion regarding rescheduling hi s surgery; he saw Dr. Smart in November 2010 and was again re-indicated for surgery. It is uncle ar what exactly happened between that last appointment and this one. PE:Ht 1.727 m (5' 8") | Wt 113.853 kg (251 lb) | BMI 38.16 kg/(m^2) gen nad Crouched stance and shuffling gait with a walker nvi d No hip motion with severe contractures Integument intact He has repeat x-rays from 04/11/12 on a CD that he brought in which again demonstrate severe DJD of both hips. We will plan to do one hip at a time, starting with the left as it is more painful. We will make the necessary surgery request and contact him in the near future to schedule this left total hip arthroplasty. Ender Wallis MD documented in this enc ounter Plan of Treatment Not on filedocumented as of this encounter Procedures + +--------+ + + + | Procedure Name | Priori | Date/Time | Associated Diagnosis | Comments | | | ty | | | | + +--------+ + + + | RADIOLOGY | | 04/28/2012 | | Results for this | | | | 12:00 AM | | procedure are in the | | | | PDT | | results section. | + +--------+ + + + documented in this encounter Results RADIOLOGY (04/28/2012 12:00 AM PDT) + + + | Narrative | Performed At | + + + | | | + + + + + | Transcriptions | + + | Amanda Faculty - 05/03/2012 11:48 AM PDT | + + documented in this encounter Visit Diagnoses + + | Diagnosis | + + | Osteoarthrosis, hip Localized osteoarthrosis not specified whether primary or | | secondary, pelvic region and thigh | + + | Hip pain, bilateral Pain in joint, pelvic region and thigh | + + | Ankylosing spondylitis (HCC) Ankylosing spondylitis | + + documented in this encounter
--- OUTSIDE RECORDS SUMMARY | ~2019-01-28 | XMS | Encounter Summary ---
Demographics + + + | Address | [address] | | | [place] [address] | + + + | Home Phone [...] Author | [facility] | + + + | Organization | [facility] | + + + | Address | [...] Team Providers + +------+ + | Care E Business Manager Name | Role | Phone | [...] | | [address] | [place], | Note | | | | [place] | [place] [address] | | | | | [place], | [phone] | | | | | [place] [address] | | | | | | [phone] | | | +--------+ + + + [...]
--- OUTSIDE RECORDS SUMMARY | ~2019-01-28 | XMS | Encounter Summary ---
Demographics + + + | Address | [address] | | | [place] [address] | + + + | Home Phone [...] Team Providers + +------+ + | Care Bell Ringer Name | Role | Phone | + +------+ + | Gracie Mariano MD | PCP | Unavailable | + +------+ + Encounter Details +--------+ + + + + | Date | Type | Department | Care Team | Description | +--------+ + + + + | 06/29/ | Anesthesia | 6A Intra Op [facility] | Angeline Marshall | | | 2013 | Event | [facility] | R, FINAL CLEANER [address] | | | | | Admitting Desk | [address] | | | | | Located on the 9 | [place], [place] | | | | | floor [address] [facility] | [address] | | | | | [facility] [address] | [phone] | | | | | [place], [place] | | | | | | [address] | | | +--------+ + + + [...] | | | Royal Walker MD at [facility] | | | | [...]
--- OUTSIDE RECORDS SUMMARY | ~2019-01-28 | XMS | Encounter Summary ---
Demographics + + + | Address | [address] | | | [place] [address] | + + + | Home Phone [...] Author + + + | Author | [facility] | + + + | Organization | [facility] | + + + | Address [...] Team Providers + +------+ + | Care Planer Mill Grader Name | Role | Phone | + [...] [address] | | | | | [facility] [address] | [facility] | | | | | Mailcode: PV430 | [place], [place] | | | | | [facility] | [address] | | | | | [place], [place] | [phone] | | | | | [address] | | | | | | [phone] | | | +--------+ + + + [...]
--- OUTSIDE RECORDS SUMMARY | ~2019-01-28 | XMS | Encounter Summary ---
Demographics + + + | Address | [address] | | | [place] [address] | + + + | Home Phone [...] Team Providers + +------+ + | Care Site Engineer Name | Role | Phone | [...] | | [facility] [address] | | | | | | Mailcode: PV450 | | | | | | [address]ette [address] | | | | | | [place], [place] | | | | | | [address] | | | | | | [phone] | | | +--------+ + + + [...] | | | ana laura / Jakob Ferndale | | | | | | 08/11/2012 16:07 PM | | | | + + + + + + + + | Specimen | + + | | + + + +---------+ + + | Performing | Address | City/State/Zipcode | Phone Number | | Organization | | | | + +---------+ + + | [facility] DEPARTMENT OF | | | | [...]
--- OUTSIDE RECORDS SUMMARY | ~2019-01-28 | XMS | Encounter Summary ---
Demographics + + + | Address | [address] | | | [place] [address] | + + + | Home Phone | | + + + | Preferred Language | Unknown | + + + | Marital Status | Single | + + + | Baptist Affiliation | 1041 | + + + | Race | Unknown | + + + | Ethnic Group | Unknown | + + + Author + + + | Author | [facility] | + + + | Organization | [facility] | + + + | Address | Unknown | + + + | Phone | Unavailable | + + + Support + + +---------+ + | Name | Relationship | Address | Phone | + + +---------+ + | Di Cisneros | ECON | Unknown | | + + +---------+ + Care Team Providers + +------+ + | Care Telephony Engineer Name | Role | Phone | + +------+ + | Scooby Mcclure MD | PCP | | + +------+ + Encounter Details +--------+ + + + + | Date | Type | Department | Care Team | Description | +--------+ + + + + | 11/17/ | Documentati | [facility] | Sarahi Jade, | | | 2018 | on Only | [facility] | [address] | | | | | [address] | [place] | | | | | [place] | [address] | | | | | [address] | | | | | | [phone] | | | +--------+ + + + [...] on file | | + + + as of this encounter Progress Notes Rea Montoya - 11/17/2018 2:14 PM Blanca mckenzie for visit 03/09/19 8:45amin thi s encounter Plan of Treatment +--------+ + + + + | Date | Type | Specialty | Care Team | Description | +--------+ + + + + | 05/01/ | Initial | Neurology | Sarahi Jade, | | | 2018 | consult | | MD Sushil Yang | | | | | | [place] | | | | | | [id number] | | | | | | | | +--------+ + + + + as of this encounter Visit Diagnoses Not on filein this encounter"
--- OUTSIDE RECORDS SUMMARY | ~2019-01-28 | XMS | Encounter Summary ---
Demographics + + + | Address | [address] | | | [place] [address] | + + + | Home Phone | | + + + | Preferred Language | Unknown | + + + | Marital Status | Single | + + + | Temple Affiliation | BAP | + + + | Race | or | + + + | Ethnic Group | Not or | + + + Author + + + | Author | [facility] | + + + | Organization | [facility] | + + + | [...] Team Providers + +------+ + | Care Cooler Conveyor Loader Name | Role | Phone | + +------+ + | Gracie Mairano MD | PCP | Unavailable | + [...] | | [address] | [place] [address] | | | | | [address] | [phone] | | | | | Road Mailcode: | | | | | | [address] | | | | | | [address] | | | | | | [place], [place] | | | | | | [address] | | | | | | [phone] | | | +--------+ + + + [...]
--- OUTSIDE RECORDS SUMMARY | ~2019-01-28 | XMS | Encounter Summary ---
Demographics + + + | Address | [address] | | | [place] [address] | + + + | Home Phone [...] Team Providers + +------+ + | Care Chauffeur Name | Role | Phone | + [...] | | 2018 | | [facility] [address] | [address] | | | | | Ave Mailcode: CH12A | [place], [place] | | | | | [facility] | [address] | | | | | and | [phone] | | | | | Floor [place], [place] | | | | | | [address] | | | | | | [phone] | | | +--------+ + + + [...]
--- OUTSIDE RECORDS SUMMARY | ~2019-01-28 | XMS | Encounter Summary ---
Demographics + + + | Address | [address] | | | [place] [address] | + + + | Home Phone [...] Team Providers + +------+ + | Care Roll Icer Name | Role | Phone | + +------+ + | Scooby Mcclure MD | PCP | | + +------+ + Encounter Details +--------+--------+ + + + | Date | Type | Department | Care Team | Description | +--------+--------+ + + + | 02/15/ | Intake | Transfer Center | | N/A | | 2018 | | [address] | | | | | | [place] | | | | | | [place] [address] | | | +--------+--------+ + + + Social History + + [...]
--- OUTSIDE RECORDS SUMMARY | ~2019-01-28 | XMS | Encounter Summary ---
Demographics + + + | Address | [address] | | | [place] [address] | + + + | Home Phone [...] + + + | Author | [facility] | + + + | Organization | [facility] | + + + | Address [...] Team Providers + +------+ + | Care All Around Patternmaker Name | Role | Phone | + +------+ + | Scooby Mcclure MD | PCP | | + +------+ + Encounter Details +--------+ + + + + | Date | Type | Department | Care Team | Description | +--------+ + + + + | 05/17/ | Product Engineering Manager | [facility] | Arline Paige, | Closed displaced | | 2018 | | [facility] [address] | PA-C [address] | fracture of second | | | | Ave [place], [place] | Ave [place], [place] | cervical vertebra, | | | | [address] | [address] | unspecified fracture | | | | [phone] | [phone] | morphology, initial | | | | [...] | | | | | | encounter ([facility]) | | + +---------+--------+ + + documented as of this encounter Visit Diagnoses + + | Diagnosis | + + | Closed displaced fracture of second cervical vertebra, unspecified fracture | | morphology, initial encounter ([facility]) - Primary | + + documented in this encounter"
--- OUTSIDE RECORDS SUMMARY | ~2019-01-28 | XMS | Encounter Summary ---
Demographics + + + | Address | [address] | | | [place] [address] | + + + | Home Phone [...] Team Providers + +------+ + | Care Speed Operator Name | Role | Phone | + +------+ + | Gracie Mariano MD | PCP | Unavailable | + +------+ + Encounter Details +--------+ + + + + | Date | Type | Department | Care Team | Description | +--------+ + + + + | 02/08/ | Document-Sc | Preoperative | Unknown . | | | 2014 | anned | Medicine Clinic at | | | | | | [facility] 4th Floor [address] | | | | | [address] Mail | | | | | | Code: [facility] | | | | | | for Health and | | | | | | [facility],4th Floor | | | | | | [place], [place] | | | | | | [address] | | | | | | [phone] | | | +--------+ + + + [...]
--- OUTSIDE RECORDS SUMMARY | ~2019-01-28 | XMS | Encounter Summary ---
Demographics + + + | Address | [address] | | | [place] [address] | + + + | Home Phone [...] + + + | Author | [facility] | + + + | Organization | [facility] | + + + | Address [...] Team Providers + +------+ + | Care Any Commodity Sales Deliverer Name | Role | Phone | + +------+ + | Gracie Mariano MD | PCP | Unavailable | + +------+ + Encounter Details +--------+ + + + + | Date | Type | Department | Care Team | Description | +--------+ + + + + | 11/29/ | Telephone | [facility] | Adriano Chavez, | | | 2013 | | [place] [facility] [address] | | | | | | [address] | | | | | | Mailcode: Center | | | | | | [facility] and | | | | | | [facility] [address] | | | | | | [place], [place] | | | | | | [address] | | | | | | [phone] | | | +--------+ + + + [...]
--- OUTSIDE RECORDS SUMMARY | ~2019-01-28 | XMS | Encounter Summary ---
Demographics + + + | Address | [address] | | | [place] [address] | + + + | Home Phone [...] Team Providers + +------+ + | Care Clinical Pharmacy Coordinator Name | Role | Phone | [...] | | 2011 | on | at [facility] [address] | | | | | | [address] | | | | | | [place] | | | | | | [place], | | | | | | [place] [address] | | | | | | [phone] | | | +--------+ + + + [...]
--- OUTSIDE RECORDS SUMMARY | ~2019-01-28 | XMS | Encounter Summary ---
Demographics + + + | Address | [address] | | | [place] [address] | + + + | Home Phone [...] Team Providers + +------+ + | Care Scratch Polisher Name | Role | Phone | + +------+ + | Gracie Mariano MD | PCP | Unavailable | + +------+ + Reason for Visit + + + | Reason | Comments | + + + | Follow-up visit | | + + + Office Visit - E/M Services (Routine) +--------+--------+ + + + + | Status | Reason | Specialty | Diagnoses / | Referred By | Referred To | | | | | Procedures | Contact | Contact | +--------+--------+ + + + + | Closed | | Trauma Center | Diagnoses | Yesica, | Tra Emerg | | | | | Acute | Raf Rossi MD | Gen Surg [facility] | | | | | cholecystiti | [address] | [address] | | | | | s | [address] | [place] | | | | | | [address] | | | | | | [place], | Mailcode: | | | | | | [place] [address] | [id number] | | | | | | Phone: | [facility] | | | | | | [phone] | [address] | | | | | | Fax: | [place], [place] | | | | | | [phone] | [address] | | | | | | | Phone: | | | | | | | [phone] | | | | | | | Fax: | | | | | | | [phone] | +--------+--------+ + + + + Encounter Details +--------+---------+ + + + | Date | Type | Department | Care Team | Description | +--------+---------+ + + + | 03/10/ | Office | Trauma Emergency | Deandre Austin, | Cholecystitis | | 2012 | Visit | General Surgery at | MD [address] | (Primary Dx); | | | | [facility] [address] | [facility] [address] | Ventral hernia | | | | [facility] | [place], [place] | | | | | Mailcode: [address] | [address] | | | | | [facility] | [phone] | | | | | [address] [place], [place] | | | | | | [address] | | | | | | [phone] | | | +--------+---------+ + + + [...] + + + | Blood Pressure | 139/54 | 03/10/2013 2:39 PM | | | | | PDT | | + + + + + | Pulse | 71 | 03/10/2013 2:39 PM | | | | | PDT | | + + + + + | Temperature | 36.7 C (98 F) | 03/10/2013 2:39 PM | | | | | PDT | | + + + + + | Respiratory Rate | - | - | | + + + + + | Oxygen Saturation | 99% | 03/10/2013 2:39 PM | | | | | PDT | | + + + + + | Inhaled Oxygen | - | - | | | Concentration | | | | + + + + + | Weight | 116.1 kg (256 lb) | 03/10/2013 2:39 PM | | | | | PDT | | + + + + + | Height | - | - | | + + + + + | Body Mass Index | 41.95 | 03/02/2013 10:57 AM | | | | | PDT | | + + + + + documented in this encounter Progress Notes Deandre Austin MD - 03/19/2013 12:48 AM PDTATTENDING ADDENDUM I saw and examined Jorge L Cisneros with the residents on 03/10 and agree with the assessment an d plan as outlined in this note and participated in the planning of care. Mr. Cisneros presents to [facility] after recent discharge from the inpatient setting in [place]. He had worsening upp er abdominal pain. Imaging revealed stones/sludge at the neck of his gallbladder. His amylas e though not lipase were elevated. It is not entirely clear whether he did have gallstone pa ncreatitis though his imaging and lab values are concerning for cholecystitis. He has been o n coumadin and is therapeutically anticoagulated. We will admit him tonight for pain control and management of his INR. We will try to add him onto the schedule for cholecystectomy, la p with a high probability of opening. I discussed the operation, risks, and benefits. Deandre Austin MD FACS employee benefits manager Division of Trauma, Critical Care, and Acute Care Surgery [phone] Jessica Coon MD - 03/10/2013 3:41 PM PDT [facility] EMERGENCY GENERAL SURGERY HISTORY AND PHYSICAL NOTE Patient: Jorge L Cisneros Author: JESSICA GONZALEZ MD Attending Physician: Deandre Austin MD Date of Admission: 03/10/2013 CC: RUQ pain HISTORY OF PRESENT ILLNESS/ INTERVAL UPDATE: Jorge L Cisneros is a 62 y.o. male chronically anticoagulated for antiphospholipid antibody syn drome (hx CVA, RLE DVT), recently discharged from [facility] ([place], [place]) for ac hudson cholecystitis. On 03/06 had sudden onset epigastric pain and self-presented to the hospit al. Gallbladder US showed gallstones and possible acute cholecystitis. The patient eventuall y improved and was discharged for evaluation at [facility] EGS clinic. Prior abdominal surgery inc ludes midline laparotomy in 2003 for diverticulitis with bowel resection. Denies EtOH or smo almita. CBGs ranging 140-180s. REVIEW OF SYSTEMS: Constitutional - negative Skin - negative Eyes - negative Ears/Nose/Mouth/Throat - negative Cardiovascular - negative Respiratory - negative Gastrointestinal - negative Genitourinary - negative Musculoskeletal - positive - walks with a walker Neurologic/Psychiatric - negative Allergic/Immunologic - negative Hematologic/Lymphatic - positive - anticoagulated Endocrine - negative All other ROS negative except as documented in the history of present illness. PAST MEDICAL HISTORY: Past Medical History Diagnosis Date Diabetes mellitus [...] reflux disease) Seizure disorder Unspecified hemorrhagic conditions PAST SURGICAL HISTORY: Past Surgical History Procedure Laterality Date Colectomy 2004 partial, for diverticulitis Rotator cuff repair 1998 Left total hip arthroplasty with complexity modifier, incisional wound vac 05/09/2012 SOCIAL HISTORY: History Social History Marital Status: Single Spouse [...] Social History Narrative No narrative on file Lives alone. Daughter lives next door to him. Registered [employer] member of the [facility]. MEDICATIONS: (Not in a hospital admission) ALLERGIES: Allergies Allergen Reactions Codeine Rash Penicillins Rash Sulfa (Sulfonamide Antibiotics) Trimethoprim FAMILY HISTORY: Family History Problem Relation Cancer Mother mesothelioma Heart Disease Father PHYSICAL EXAM: CURRENT VITALS: Wt 116.121 kg (256 lbs)( < 3 %ile), BP 139/54, Pulse 71, Temperature 36.7 C (98 F), Temperature source Oral, SpO2 99%, BMI 41.94 kg/(m^2). GEN: NAD, alert and oriented HEENT: EOMI, anicteric sclerae CV: RRR PULM: breathing comfortably ABD: obese, soft, ventral hernia to the right of the midline. Nontender throughout. EXTREMITIES: HUGHES NEURO: appropriate LABS: none IMAGING: none ASSESSMENT: Jorge L Cisneros is a 62 y.o. male with resolved acute cholecystitis and a ventral hernia. He i s also anticoagulated for antiphospholipid antibody syndrome. PLAN: Admit to EGS [place] to feed Baseline labs Start therapeutic lovenox now, allow INR to drift down Book surgery for laparoscopic cholecystectomy, intraoperative cholangiogram, ventral her prem repair (Wed, 03/13) Will obtain consent over the weekend Diagnostic data, case and plan discussed with the chief resident/fellow and Deandre Austin MD. Plan subject to change, based on clinical developments. JESSICA GONZALEZ MD PGY5 TRAUMA EMERGENCY GENERAL SURGERY [facility] Mailcode: [id number] [place] [address] This assessment and plan was formulated both independently and in conjunction with the Atte njing Surgeon:Deandre Austin MD regarding management of this patient and their medical issu es. It is accurate to the best of my knowledge, and is subject to modification based on cli nical developments, new data, or final imaging results. documented in this en counter Plan of Treatment Not on filedocumented as of this encounter Procedures + +--------+ + + + | Procedure Name | Priori | Date/Time | Associated Diagnosis | Comments | | | ty | | | | + +--------+ + + + | RADIOLOGY | | 03/07/2013 | | Results for this | | | | 12:00 AM | | procedure are in the | | | | PDT | | results section. | + +--------+ + + + documented in this encounter Results RADIOLOGY (03/07/2013 12:00 AM PDT) + + + | Narrative | Performed At | + + + | | | | | | + + + + + | Procedure Note | + + | Sameera Patel - 03/21/2013 10:22 AM PDT | + + documented in this encounter Visit Diagnoses + + | Diagnosis | + + | Cholecystitis - Primary Cholecystitis, unspecified | + + | Ventral hernia Ventral hernia, unspecified, without mention of obstruction or | | gangrene | + + documented in this encounter"
--- OUTSIDE RECORDS SUMMARY | ~2019-01-28 | XMS | Encounter Summary ---
Demographics + + + | Address | [address] | | | [place] [address] | + + + | Home Phone [...] Team Providers + +------+ + | Care Dermatological Surgeon Name | Role | Phone | + [...] [address] | | | | | | [address] | | | | | | Mailcode: [id number] | | | | | | [place] | | | | | | [place], [place] | | | | | | [address] | | | | | | [phone] | | | +--------+ + + + [...] | | + +---------+ + + | [facility] DEPARTMENT OF | | | | | RADIOLOGY | | | | + +---------+ + + documented in this encounter Visit Diagnoses + + | Diagnosis | + + | Osteoarthrosis, hip Localized osteoarthrosis not specified whether primary or | | secondary, pelvic region and thigh | + + documented in this encounter"
--- OUTSIDE RECORDS SUMMARY | ~2019-01-28 | XMS | Encounter Summary ---
Demographics + + + | Address | [address] | | | [place] [address] | + + + | Home Phone | | + + + | Preferred Language | Unknown | + + + | Marital Status | Single | + + + | Amish Affiliation | BAP | + + + [...] Team Providers + +------+ + | Care Relief Map Modeler Name | Role | Phone | + [...] RIGHT TOTAL | | 2013 | | [facility] | [address] [facility] [address] | HIP ARTHROPLASTY AND | | | | Admitting Desk | [facility] | VACUUM ASSISTED | | | | Located on the | [place], [place] | CLOSURE | | | | floor [address] | [address] | | | | | [facility] | [phone] | | | | | [place], [place] | | | | | | [address] | | | +--------+---------+ + + + [...] might be different fr om the original. [facility]ATION IN[facility]IENT HOSPITAL DISCHARGE SUMMARY & INTERDISCIPLINARY INSTRUCTIONS Patient: Jorge L Cisneros CSN: [id number] Admission Date: 03/12/2014 Discharge Date: 03/16/2014 Attending Physician: Rosa M Smart MD PCP: Gracie Mariano MD Service: [facility] Orthopaedics & Rehabilitation Diagnoses Principal Final [...] they suspect your wound is infected. Call [facility] Orthopedics first at [phone]. Activity Weight bear as tolerated on both [...] AM Rosa M Smart Orthopaedics at [facility] [phone] Orthopedics PCP: As needed for any medical [...] our pleasure. Ender Phelps MD Pager # [phone] documented in this enc ounter Discharge Instructions Instructions Gifty Coffey RN - 03/16/2014Patient Education Materials: AVS paperw ork & dressing supplies. Provided patient with morphine, sennakot and miralax that were fill ed at our outpatient pharmacy. No personal belongings held in our safe. Pt. Did not have an y additional questions at this time. Patients transportation from [facility] transporting [facility] back home. Additional Instructions: Per Sarah Gee NP: Pt is to take three 1 mg warfarin tabs for a tot al of 3 mg warfarin only this evening of 03/16/2014. Patient will then resume taking his norm al dose of 6mg warfarin starting on . Patient education provided by this senior writer beti bowen these medication instructions. HANNA [...] home today Ender Phelps MD Pager # [phone] uff, Rosa M Paige MD - 03/15/2014 [...] possibly tomorrow Ender Phelps MD Pager # [phone] I performed a history and physical examination of the patient and discussed his management with the resident. I reviewed the resident s note and agree with the documented findings and plan of care. ROSA M SMART MD [facility] [address] [place] [address] osa M Smart MD - 0 03/14/2014 [...] d/w YULIANA. Ender Phelps MD Pager # [phone] I performed a history and physical examination of the patient and discussed his management with the resident. I reviewed the resident s note and agree with the documented findings and plan of care. ROSA M SMART MD [facility] [address] [facility] [place] [address] Ender Camara MD - 03/13/2014 8:08 AM [...] Dispo: pending Ender Phelps MD Pager # [phone] Rosa M Cárdenas MD - 03/12/2014 5:36 PM [facility] ORTHOPAEDIC SURGERY POST OPERATIVE CHECK IDENTIFICATION: Patient: [...] treatment tomorrow Ender Phelps MD Pager # [phone] I performed a history and physical examination of the patient and discussed his management with the resident. I reviewed the resident s note and agree with the documented findings and plan of care. ROSA M SMART MD [facility] [address] [facility] [place] [address] Karen Stephen MD - 03/12/2014 12:32 PM [...] [place] | [address] | [place], [place] | | | JOI POINT OF CARE | [facility] | [address] | | | TESTS | | | [...] | + + + + + | [facility] | [address] | [place] [address] | | | SERVICES, CORE | PARK [...] ranges for full anticoagulation: INR for | [facility] | | Venous Thromboembolism (2.0 - 3.0) INR INR | LABORATORY | | for most patients with mech. valves (2.5 - 3.5) INR | NAY KANG | + + + + + + + + | Performing | Address | City/State/Zipcode | Phone Number | | Organization | | | | + + + + + | [facility] | [address] | [place] [address] | | | SERVICES, NAY | [place] [...] | | | LABORATORY | | | POLISH | | | SERVICES, | | | [...] | + + + + + | [facility] | [address] | [place] [address] | | | SERVICES, CORE | GENN[place]O [...] + + | Performing | Address | City/State/[facility] | Phone Number | | Organization | | | | + + + + + | [facility] | [address] | [place], [place] | | | BABAR TAMEZ OF TIMUR | [facility] | [address] | | | TESTS | | | [...] [place] | [address] | [place], [place] | | | BABAR T[place] OF [place] | [facility] | [address] | | | TESTS | | | [...] (H) | 60 - 99 mg/dL | [facility] - | | | [...] + + + + + | [facility] | [address] | [place], [place] | | | JOI POINT OF CARE | [address] | [address] | | | TESTS | | | [...] [facility] | [address] | [place] [address] | | | SERVICES, CORE | PARK [...] | | | LABORATORY | | | POLISH | | | SERVICES, | | | [...] | + + + + + | [facility] | [address] | [place] [address] | | | NAY KANG | GENN[place]O [...] | + + + + + | [facility] | [address] | [place] [address] | | | SERVICES, NAY | GENNARO [...] ELLIE | [address] | [place], [place] | | | BABAR TAMEZ OF CARE | [facility] | [address] | | | TESTS | | | [...] (H) | 60 - 99 mg/dL | [facility] - | | | [...] AR[place]ETA | [address] | [place], [place] | | | BABAR TAMEZ OF CARE | [facility] | [address] | | | TESTS | | | [...] ELLIE | [address] | [place], [place] | | | BABAR TAME[place] OF [place] | [address] | [address] | | | TESTS | | | [...] | + + + + + | [facility] | [address] | [place] [address] | | | SERVICES, CORE | PARK [...] | | | LABORATORY | | | POLISH | | | SERVICES, | | | [...] [facility] | [address] | [place] [address] | | | SERVICES, CORE | PARK [...] | + + + + + | [facility] | [address] | [place] [address] | | | SERVICES, CORE | GENNARO [...] (H) | 60 - 99 mg/dL | [facility] - | | | [...] [place] | [address] | [place], [place] | | | JOI POINT OF CARE | [address] | [address] | | | TESTS | | | [...] [place] | [address] | [place], [place] | | | BABAR TAME[place] OF [place] | [address] | [address] | | | TESTS | | | [...] [facility] | [address] | [place], [place] | | | JOI POINT OF CARE | [address] | [address] | | | TESTS | | | [...] + + + | [facility] | [address] | [place], [place] | | | JOI POINT OF [facility] | [address] | [address] | | | TESTS | | | [...] [facility] | [address] | [place] [address] | | | SERVICES, CORE | PARK [...] [facility] | [address] | [place] [address] | | | SERVICES, CORE | PARK [...] | | | LABORATORY | | | POLISH | | | SERVICES, | | | [...] | + + + + + | [facility] | [address] | [place] [address] | | | SERVICES, CORE | PARK [...] [place] | [address] | [place], [place] | | | BAB[place] OF [place] | [address] | [address] | | | TESTS | | | [...] [place] | [address] | [place], [place] | | | BABAR TAME[place] OF [place] | [address] | [address] | | | TESTS | | | | + + + + + X-RAY PORTABLE PELVIS 1 VIEW (03/12/2014 12:28 PM PDT) + + + + + + | Component | Value | Ref Range | Performed | Pathologist | | | | | At | Signature | + + + + + + | X-RAY | STUDY: GA PELVIS 1 VIEW | | | | [...] | | + +---------+ + + | [facility] DEPARTMENT OF | | | [...] [place] | [address] | [place], [place] | | | BABAR TAMEZ OF CARE | [address] | [address] | | | TESTS | | | [...] - [facility] | [address] | [place], [place] | | | BABAR TAMEZ OF CARE | [address] | [address] | | | TESTS | | | [...] + + + | [facility] | [address] | [place], [place] | | | JOI FRUITVALE OF [facility] | [address] | [address] | | | TESTS | | | [...] [place] | [address] | [place], [place] | | | BABAR TAMEZ OF CARE | [address] | [address] | | | TESTS | | | [...] - ELLIE | [address] | [place], [place] | | | BABAR TAMEZ OF CARE | [facility] | [address] | | | TESTS | | | [...] AR[place]ET[place] | [address] | [place], [place] | | | BABAR TAMEZ OF [facility] | [facility] | [address] | | | TESTS | | | [...] ELLIE | [address] | [place], [place] | | | BABAR TAMEZ OF TIMUR | [address] | [address] | | | TESTS | | | [...] - [place] | [address] | [place], [place] | | | JUDIT TAMEZ | [facility] | [address] | | | TESTS | | | [...] [place] | [address] | [place], [place] | | | BABAR TAMEZ OF TIMUR | [facility] | [address] | | | TESTS | | | [...] | + + + + + | [facility] | [address] | [place] [address] | | | SERVICES, CORE | GENNARO [...] (H) | 60 - 99 mg/dL | [facility] - | | | [...] + + + | [facility] | [address] | [place], [place] | | | BABAR TAMEZ OF [facility] | [address] | [address] | | | TESTS | | | [...]
--- OUTSIDE RECORDS SUMMARY | ~2019-01-28 | XMS | Encounter Summary ---
Demographics + + + | Address | [address] | | | [place] [address] | + + + | Home Phone [...] + + + | Author | [facility] | + + + | Organization | [facility] | + + + | [...] Team Providers + +------+ + | Care Chuck Wagon Cook Name | Role | Phone | + [...] + + | 03/08/ | Emergency | [facility] Emergency | | | | 2012 | | Department [address] | | | | [address] | | | | | | [facility] | | | | | | [place] [address] | | | | | | [phone] | | | +--------+ + + + [...]
--- OUTSIDE RECORDS SUMMARY | ~2019-01-28 | XMS | Encounter Summary ---
Demographics + + + | Address | [address] | | | [place] [address] | + + + | Home Phone [...] | + + +---------+ + | Jean uFnk | ECON | Unknown | Unavailable | + + +---------+ + Care Team Providers + +------+ + | Care Water Quality Tester Name | Role | Phone | + +------+ + | Ino Ace MD | PCP | Unavailable | + +------+ + Reason for Visit + + + | Reason | Comments | + + + | Pre-op evaluation | | + + + | Pre-op evaluation | | + + + Encounter Details +--------+---------+ + + + | Date | Type | Department | Care Team | Description | +--------+---------+ + + + | 08/22/ | Office | Orthopaedics at | Jan Hopkins | Other specified | | 2008 | Visit | [facility] [address] | [place] | pre-operative | | | | [facility] [address] | | examination (Primary | | | | Mailcode: [id number] | | Dx); Ankylosing | | | | [facility] | | spondylitis (HCC); | | | | [place], [place] | | Osteoarthrosis, hip | | | | [address] | | | | | | [phone] | | | +--------+---------+ + + + [...] + + + | Blood Pressure | 142/72 | 08/22/2009 10:12 AM | | | | | PST | | + + + + + | Pulse | - | - | | + + + + + | Temperature | 36.2 C (97.2 F) | 08/22/2009 10:12 AM | | | | | PST [...] + + + + | Weight | 104.3 kg (230 lb) | 08/22/2009 10:12 AM | | | | | PST | | + + + + + | Height | 165.1 cm (5' 5") | 08/22/2009 10:12 AM | | | | | PST | | + + + + + | Body Mass Index | 38.27 | 08/22/2009 10:12 AM | | | | | PST | | + + + + + documented in this encounter Patient Instructions Patient Instructions Radha Inman - 07/25/2009 11:54 AM PSTRegistration Locations (please ch tonie in at one of the following registration desks prior to surgery) For surgeries scheduled to take place [place] the [place] at the [facility]: Surgeries scheduled in the [facility] ( North): registration is located on the 4th floor of [facility] (Day Surgery). Surgeries scheduled in the [facility]: registration is located on the 9th floor. Surgeries scheduled in [facility]: registration is located on the 6th floor. Surgeries scheduled in the [facility]: registration is located i n the [facility] on the first floor. For surgeries scheduled to take place at the [facility]: registration is l [...] If you [facility], please check with your provider before bringing it with you into the hospital. Registration Process for all Admissions/Surgeries Please bring your insurance card(s) with you and be prepared to pay any co-payment, co-insu romero or deposit that may be required. Once you arrive at the registration desk, you will be interviewed by a Patient Access Servi ce Specialist (FAYE). Demographics will be verified (example: name, date of , Social Se curity Number, address, insurance). You will be asked to sign some paperwork: Terms and Conditions of Service, Notice of Privac y Practices Acknowledgement and Genetic Testing Opt Out. You will be given some paperwork: copies of any forms signed by you, Patient Rights, Respon sibilities and Safety, Understanding Advance Directives, and Smoking Cessation Brochure.Elena stration Locations (please check in at one of the following registration desks prior to surg jeremiah) For surgeries scheduled to take place [place] the [place] at the [facility]: Surgeries scheduled in the [facility] ( North): registration is located on the 4th floor of [facility] (Day Surgery). Surgeries scheduled in the [facility]: registration is located on the 9th floor. Surgeries scheduled in [facility]: registration is located on the 6th floor. Surgeries scheduled in the [facility]: registration is located i n the [facility] on the first floor. For surgeries scheduled to take place at the [facility]: registration is l [...] If you [facility], please check with your provider before bringing it with you into the hospital. Registration Process for all Admissions/Surgeries Please bring your insurance card(s) with you and be prepared to pay any co-payment, co-insu romero or deposit that may be required. Once you arrive at the registration desk, you will be interviewed by a Patient Access Servi ce Specialist (FAYE). Demographics will be verified (example: name, date of , Social Se curity Number, address, insurance). You will be asked to sign some paperwork: Terms and Conditions of Service, Notice of Privac y Practices Acknowledgement and Genetic Testing Opt Out. You will be given some paperwork: copies of any forms signed by you, Patient Rights, Respon sibilities and Safety, Understanding Advance Directives, and Smoking Cessation Brochure.Elec tronically signed by Jan Hopkins PA-C at 08/22/2009 10:54 AM PST documented in this encounter Progress Notes Rosa M Smart MD - 08/27/2009 8:26 PM PSTI have reviewed the patient's visit as charted by ALLEGRA Pulliam. ROSA M SMART MD [facility] [address] [place] [address] Mailcode: [id number] [place] [id number] Jan Leal PA-C - 08/22/2009 10:51 AM PST SUBJECTIVE: Jorge L Cisneros is here today for pre-operative evaluation. He has h/o and has severe stif fness of his entire spine and neck. He also has severe DJD of bilateral hips. He does admi ts that his right hip symptoms tend to be worse than the left. He uses a walker. He is ind icated for SUSHIL of both his right and left sides. He has elected to proceed with bilateral h ip replacements rather than staged. He has been taking narcotics preoperatively (Morphine, 60mg TID). Patient's medical history includes , DM II He denies current anticoagulation therapy, h/o blood clots, recent fevers/illness, sleep ap jacqueline, previous complications with anesthesia, blood transfusion within the last 90 days and l atex allergy. JOINT PATIENT SCREENING: Is the patient a diabetic? yes (Hgb A1c ordered today) Body mass index is 38.27 kg/(m^2). Is dentia okay? No (He has gingivitis and his two front teeth have recently loosened. He h as not yet seen a dentist for this new issue) Is there peripheral edema? no Is the skin on the extremity intact? Yes Is patient smoking? no Has patient had MRSA or VRE? no Does the patient have any allergies to antibiotics? yes (see below) ALLERGIES: PCN (hives, rash) - last had years ago Codeine (Rash) Otherwise the orthopaedic history is unchanged from previous visit. The past medical histo ry, medications, allergies, surgical history, and social history were reviewed and updated i gurpreet Ragland. ROS: - Respiratory: No cough, dyspnea, wheezing. - Cardiovascular: No chest pain, palpitations, syncope, edema - Gastrointestinal: No abdominal pain, nausea or vomiting - Genitourinary: No dysuria, hematuria - Neurologic: No disturbance of motor or sensory function - Skin: No recent rashes, sores, ulcers, wounds or skin changes - Heme: No abnormal bruising, abnormal bleeding, blood clots - ID: No fevers, persistent infections, recent antibiotic usage OBJECTIVE: - Last Vitals: BP 142/72 | Temp(Src) 36.2 C (97.2 F) (Oral) | Ht 1.651 m (5' 5") | Wt 1 04.327 kg (230 lb) - Cardiac: regular rate and rhythm - Chest: No signs of respiratory distress. Regular respiratory rate and rhythm. - Skin: Intact over surgical site without erythema or lesions. Remainder of physical exam deferred to PAT clinic. PROVISIONAL DIAGNOSIS: Severe bilateral hip DJD PLAN: - Bilateral SUSHIL was scheduled for 09/04/09. - Discussed dental issues. Explained to pt risk associated with poor dentition. He unders tands this. Recommend he see dentist to have current tooth/gum issue dealt with prior to pr oceeding with SUSHIL due to increased risk of infection. Will delay surgery until pt sees dent ist. He will forward us documentation regarding his treatment plan prior to rescheduling. - Perioperative antibiotic will be Ancef with stress dose. - Check HgbA1c today - A PARQ session was held, additional questions were answered. We specifically discussed the risks of infection, bleeding, DVT/PE, damage to surrounding structures, fracture, LLD, i nstability, , cardiac complications , and the general recovery period. He understands t hese risks and wishes to proceed with surgery. - After PARQ was held, the patient freely signed the consent form. - They will proceed to the PAT clinic for further testing and physical examination. They w ill be seen by a hospitalist. - They will have preop PT apt today. - First follow up will be approximately 2 weeks post-operatively with the PA. - X-rays will not be required at the 2 week post-op visit. - He was encouraged to call our office with any questions or concerns prior to the next vis it. CURRENT PROBLEM LIST: Patient Active Problem List Diagnoses Date Noted Osteoarthrosis, Hip [715.35M] 05/23/2009 Ankylosing Spondylitis [720.0] 05/23/2009 Past Medical History Diagnosis Date Diabetes mellitus type II 2007 Diverticula, colon 2002 No past surgical history on file. MEDICATIONS: Current outpatient prescriptions Medication Sig Dispense Refill Aspirin 81 mg [...] by mouth once daily in the evening. Allergies Allergen Reactions Penicillins Rash Codeine Rash FAMILY HISTORY: Family History Problem Relation Alcohol/Drug Neg Hx Allergies Neg Hx Anesthesia Neg Hx Arthritis Neg Hx Asthma Neg Hx Blood Disease Neg Hx Cancer Neg Hx Diabetes Neg Hx Genetic Neg Hx GI Neg Hx GI Neg Hx Genitourinary () Neg Hx Heart Neg Hx Hypertension Neg Hx Lipids Neg Hx Psychiatry Neg Hx Stroke Neg Hx Thyroid Neg Hx Non-contributory Neg Hx Additional Family History Neg Hx PHYSICAL EXAM: VITALS: Visit Vitals Item Reading BP 142/72 Temp(Src) 36.2 C (97.2 F) (Oral) Ht 1.651 m (5' 5") Wt 104.327 kg (230 lb) documented in this encounter Plan of Treatment + +------+--------+ + + | Name | Type | Priori | Associated Diagnoses | Order Schedule | | | | ty | | | + +------+--------+ + + | PRODUCT- RED CELLS | Lab | Routin | Other specified | Ordered: 08/22/2009 | | LEUKOREDUCED | | e | pre-operative | | | | | | examination | | + +------+--------+ + + documented as of this encounter Results HEMOGLOBIN A1C, BLOOD (08/22/2009 [...] RLB (Airport | | | Way Lab) [facility] [address] | | [place] [address] | | + + + + + + + + | Performing | Address | City/State/Zipcode | Phone Number | | Organization | | | | + + + + + | [facility] | [address] | [place] [address] | | | LABORATORY | | | [...] + + + + | [facility] DEPARTMENT OF | [address] | [place] [address] | | | PATHOLOGY | [address] [...] | | | DEPARTMENT | | | KYRGYZ | | | OF | | | [...] | + + + + + | [facility] | [address] | [place] [address] | | | PATHOLOGY | [address] [...] | + + + + + | [facility] | [address] | [place] [address] | | | PATHOLOGY | [address] | | | + + + + + documented in this encounter Visit Diagnoses + + | Diagnosis | + + | Other specified pre-operative examination - Primary | + + | Ankylosing spondylitis (HCC) Ankylosing spondylitis | + + | Osteoarthrosis, hip Localized osteoarthrosis not specified whether primary or | | secondary, pelvic region and thigh | + + documented in this encounter
--- OUTSIDE RECORDS SUMMARY | ~2019-01-28 | XMS | Clinical Summary ---
Demographics + + + | Address | [address] | | | [place] [address] | + + + | Home Phone [...] Providers + +------+ + | Care Clinical Esthetician Name | Role | Phone | + +------+ + | Scooby Mcclure MD | PP | | + +------+ + Source Comments AUTUMN is fully live on both [facility] Ambulatory and [facility] InPatient.[facility] Allergies + + + + + [...] (Flu) | | | | | vaccination (Season | 9 | | | | Ended) | | | | + + + [...] Left: | AYDE | | 04/22/ | | | Dome Hole Plug - | | Hip | | | 2021 | - | | [id number]: Qty: 1 on | | | | | | / | | 05/09/2012 by Jorge Walker, | | | | | | /[id number] | | MD at [facility] REV LOC | | | | | | 905 | + +------+--------+ +--------+--------+--------+ | Trabecular Metal Shell | | Left: | AYDE | | 03/21/ | | | 58mImplanted: Qty: 1 on | | Hip | | | 2021 | 7058- | | 05/09/2012 by Jorge Walker, | | | | | | 01 / | | MD at [facility] INPATIENT REV LOC | | | | | | /[id number] | | | | | | | | 366 | + +------+--------+ +--------+--------+--------+ | Polyethelene Neutral | | Left: | AYDE | | 01/19/ | 00-875 | | LinerImplanted: Qty: 1 on | | Hip | | | 2016 | - | | 05/09/2012 by Jorge Walker, | | | | | | 36 / | | MD at [facility] INPATIENT REV LOC | | | | | | /[id number] | | | | | | | | 117 | + +------+--------+ +--------+--------+--------+ | Trabecular Metal Femoral Stem | | Left: | AYDE | | 02/19/ | 00-786 | | 13mmImplanted: Qty: 1 on | | Hip | | | 2021 | - | | 05/09/2012 by Jorge Walker, | | | | | | 20 / | | MD at [facility] INPATIENT REV LOC | | | | | | /[id number] | | | | | | | | 333 | + +------+--------+ +--------+--------+--------+ | Femoral Head Ceramic | | Left: | AYDE | | 09/21/ | 00-877 | | 36mm/-3.5Implanted: Qty: 1 on | | Hip | | | 2021 | 5-036- | | 05/09/2012 by Jorge Walker | | | | | | 01 / | | MD Royal at [facility] INPATIENT REV | | | | | | /[id number] | | LOC | | | | | | 43 | + +------+--------+ +--------+--------+--------+ | Ayde Total Hip Cap | | | | | | | | ChargeImplanted: Qty: 1 on | | | | | | | | 05/09/2012 at [facility] INPATIENT | | | | | | | | REV LOC | | | | | | | + +------+--------+ +--------+--------+--------+ | Stem Tm Primary 13mm Extended | | Right: | AYDE | | 11/20/ | 00-786 | | - [id number]: Qty: 1 | | Hip | | | 2022 | 4-013- | | on 03/12/2014 by Denise, | | | | | | 20 / | | Jorge Paige MD at [facility] | | | | | | /[id number] | | INPATIENT REV LOC | | | | | | 757 | + +------+--------+ +--------+--------+--------+ | Femoral Head Biolox Delta | | Right: | AYDE | | 06/22/ | 00-7 | | 36mm -3.5mm - | | Hip | | | 2022 | 5-036- | | [id number]: Qty: 1 on | | | | | | / | | 03/12/2014 by Jorge Walker | | | | | | /[id number] | | MD Royal at [facility] INPATIENT REV | | | | | | 12 | | LOC | | | | | | | + +------+--------+ +--------+--------+--------+ | Tm Por St/Tm Cup/ Xlpe Ln/Cer | | | | | | | | HdImplanted: Qty: 1 on | | | | | | /98-00 | | 03/12/2014 at [facility] INPATIENT | | | | | | 01-426 | | REV LOC | | | | | | -03 / | + +------+--------+ +--------+--------+--------+ | Continuum Acetabular System | | Right: | AYDE | | 02/19/ | 00-875 | | Dome Hole Plug - | | Hip | | | 2023 | 7-000- | | [id number]: Qty: 1 on | | | | | | / | | 03/12/2014 by Jorge Walker | | | | | | /[id number] | | MD Royal at [facility] INPATIENT REV | | | | | | 971 | | LOC | | | | | | | + +------+--------+ +--------+--------+--------+ | Continuum Acetabular System | | Right: | AYDE | | / | 00-875 | | Trabecular Metal Shell With | | Hip | | | 2023 | 7058- | | Cluster Holes 58mm Ll - | | | | | | / | | [id number]: Qty: 1 on | | | | | | /[id number] | | 03/12/2014 by Jorge Walker | | | | | | 427 | | MD Royal at [facility] INPATIENT REV | | | | | | | | LOC | | | | | | | + +------+--------+ +--------+--------+--------+ | Continuum Longevity Neutral | | Right: | AYDE | | 09/22/ | 8751-1 | | Felton Blackburn 36 X 58 - | | Hip | | | 2018 | 336 / | | [id number]: Qty: 1 on | | | | | | | | 03/12/2014 by Jorge Walker | | | | | | /[id number] | | MD Royal at [facility] INPATIENT REV | | | | | | 246 | | LOC | | | | | | | + +------+--------+ +--------+--------+--------+ | 50 Mm PlateImplanted: Qty: 1 | | N/A: | NANCI & | | | 04.615 | | on 02/18/2018 by Pablito Barroso | | Spine | NANCI | | | .601 / | | MD Soha at [facility] INPATIENT REV | | | DEPUY | | | / | | LOC | | | | | | | + +------+--------+ +--------+--------+--------+ | 240 Mm RodsImplanted: Qty: 2 | | N/A: | NANCI & | | | 04.615 | | on 02/18/2018 by Pablito Barroso | | Spine | NANCI | | | .655 / | | MD Soha at [facility] INPATIENT REV | | | DEPUY | [...] | | / | | System - [id number]: | | | | | | | | Qty: 1 on 02/18/2018 by | | | | | | | | Pablito Barroso MD at [facility] | | | | | | | [...] | | / | | System - [id number]: | | | | | | | | Qty: 1 on 02/18/2018 by | | | | | | | | Pablito Barroso MD at [facility] | | | | | | | [...] | | / | | System - [id number]: | | | | | | | | Qty: 1 on 02/18/2018 by | | | | | | | | Pablito Barroso MD at [facility] | | | | | | | [...] | | | | / | | [id number]: Qty: 2 on | | | | | | | | 02/18/2018 by Pablito Barroso | | | | | | | | MD Soha at [facility] INPATIENT REV | | | | | | | | LOC | | | | | | | + +------+--------+ +--------+--------+--------+ | Small ConnectorImplanted: | | N/A: | NANCI & | | | 04.615 | | Qty: 2 on 02/18/2018 by | | Bruce | NANCI | | | .538 / | | Pablito Barroso MD at [facility] | | | DEPUY | | | / | | INPATIENT REV LOC | | | | | | | + +------+--------+ +--------+--------+--------+ | Large ConnectorImplanted: | | N/A: | NANCI & | | | 04.615 | | Qty: 2 on 02/18/2018 by | | Bruce | NANCI | | | .565 / | | Pablito Barroso MD at [facility] | | | DEPUY | | | / | | INPATIENT REV LOC | | | | | | | + +------+--------+ +--------+--------+--------+ | Sealant Hemostatic Floseal | | N/A: | [id number] | | 07/20/ | [id number] | | Matrix Needle Free Adapter | | Spine | HEALTHCARE | | 2019 | 8 / | | 5ml - [id number]: | | | | | | /[id number] | | Qty: 1 on 02/18/2018 by | | | | | | 573 | | Pablito Barroso MD at [facility] | | | | | | | [...] | B | | sent | | [place], [place] | | | | | | | | [address] | | + +--------+ +--------+ + +--------+ | [place]ICAID [place] | OHP | [id number] | 03/23/20 | [phone] | [address] | Medica | | | PLUS | | 05-Pre | 6 | [address] | id | | | OPEN | | sent | | [place] | | | | CARD | | | | [id number] | | + +--------+ +--------+ + +--------+ | [facility] | [facility] | [phone] | | | | Agency [...] | | al/Fam | | 1950 | 1 | [place] [address] | | | blaire | | | 4 (Home) | | + +--------+ +--------+ + + | Jorge L Cisneros | Agency | Self | [birth year] | [address] | | | | | 1950 | | [place] [address] | | | | | | 4 (Home) | | + +--------+ +--------+ + + Advance Directives + + + + + | Type | Date Recorded | Patient | Explanation | | | | Vegetables Cook | | + + + + + | Advance | | | | | Directives and | | | | | Living Will | | | | + + + + + | Power of | | | | | Inhalation Therapy Teacher | | | | + + + [...]
--- OUTSIDE RECORDS SUMMARY | ~2019-01-28 | XMS | Encounter Summary ---
Demographics + + + | Address | [address] | | | [place] [address] | + + + | Home Phone [...] + + | Author | [facility] | + + + | Organization | [facility] | + + + | [...] Team Providers + +------+ + | Care Jackscrew Worker Name | Role | Phone | [...] Hernandez | | | | | | [facility] Mailcode: | | | | | | [address] [place] | | | | | | [facility] | | | | | | [place], [place] | | | | | | [address] | | | | | | [phone] | | | +--------+ + + + [...]
--- OUTSIDE RECORDS SUMMARY | ~2019-01-28 | XMS | Encounter Summary ---
Demographics + + + | Address | [address] | | | [place] [address] | + + + | Home Phone [...] Providers + +------+ + | Care Information Systems Security Manager Name | Role | Phone | [...] | | | 2012 | Event | [facility] | FERTILIZER PROCESSING SUPERVISOR [address] [facility] | | | | | Admitting Desk | [facility] | | | | | Located on the | [place], [place] | | | | | floor [address] [place] [address] | [address] | | | | | [facility] | [phone] | | | | | [place], [place] | | | | | | [address] | | | +--------+ + + + [...] | Periph | 3006--contact admin for | FERTILIZER PROCESSING SUPERVISOR | Discharge | | eral | questions.); [...]
--- OUTSIDE RECORDS SUMMARY | ~2019-01-28 | XMS | Encounter Summary ---
Demographics + + + | Address | [address] | | | [place] [address] | + + + | Home Phone | | + + + | Preferred Language | Unknown | + + + | Marital Status | Single | + + + | Shinto Affiliation | BAP | + + + [...] Team Providers + +------+ + | Care Labor Contract Analyst Name | Role | Phone | + +------+ + | Gracie Mariano MD | PCP | Unavailable | + +------+ + Encounter Details +--------+ + + + + | Date | Type | Department | Care Team | Description | +--------+ + + + + | 11/21/ | Abstract | Digestive Health | dAriano Chavez, | | | 2013 | | Center at [facility] [address] | | | | | | [address] | | | | | | Mailcode: Center | | | | | | [facility] and | | | | | | [facility] 2 | | | | | | [place], [place] | | | | | | [address] | | | | | | [phone] | | | +--------+ + + + [...]
--- OUTSIDE RECORDS SUMMARY | ~2019-01-28 | XMS | Encounter Summary ---
Demographics + + + | Address | [address] | | | [place] [address] | + + + | Home Phone [...] | | + + +---------+ + | Jaen Funk | ECON | Unknown | Unavailable | + + +---------+ + Care Team Providers + +------+ + | Care Golf Starter And Ranger Name | Role | Phone | + [...] Taj | | | | | | [address] | | | | | | Mailcode: PV450 | | | | | | [facility] | | | | | | [place], [place] | | | | | | [address] | | | | | | [phone] | | | +--------+ + + + [...]
--- OUTSIDE RECORDS SUMMARY | ~2019-01-28 | XMS | Encounter Summary ---
Demographics + + + | Address | [address] | | | [place] [address] | + + + | Home Phone [...] Team Providers + +------+ + | Care Vest Baster Name | Role | Phone | + [...] 12/04/ | Abstract | Digestive Health | ScottOlliean, | Medical Records | | 2013 | | Center at [facility] [address] | MD | Review ([facility] - | | | | [address] | | OUTSIDE RECORDS) | | | | Mailcode: [place] | | | | | | for Health and | | | | | | [facility], [facility] | | | | | | | | | | | | [address] | | | | | | [phone] | | | +--------+ + + + [...]
--- OUTSIDE RECORDS SUMMARY | ~2019-01-28 | XMS | Encounter Summary ---
Demographics + + + | Address | [address] | | | [place] [address] | + + + | Home Phone [...] Team Providers + +------+ + | Care Apron Man Name | Role | Phone | + [...] Taj | Joint) | | | | [facility] | [facility] | | | | | Mailcode: PV430 | [place], [place] | | | | | [facility] | [address] | | | | | [facility] [place] | [phone] | | | | | [address] | | | | | | [phone] | | | +--------+ + + + [...]
--- OUTSIDE RECORDS SUMMARY | ~2019-01-28 | XMS | Encounter Summary ---
Demographics + + + | Address | [address] | | | [place] [address] | + + + | Home Phone [...] Author + + + | Author | [facility] | + + + | Organization | [facility] | + + + | [...] Team Providers + +------+ + | Care Wood Form Builder Name | Role | Phone | + [...] | | | | | [place] | | | | | | [place] [address] | | | +--------+--------+ + + + [...]
--- OUTSIDE RECORDS SUMMARY | ~2019-01-28 | XMS | Encounter Summary ---
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 [address] | (Primary Dx); | | | | [facility] 4th Floor [address] | Ankylosing | | | | [address] | [place], [place] | spondylitis ([facility]); | | | | Code: [address] | [address] | Hypertension; | | | | for Health and | [phone] | Diabetes mellitus | | | | Healing,4th Floor | | ([facility]); | | | | [place], [place] | | 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 [facility] wipe packet and instructions on proper skin [...] the following medications on the morning of surgery:lisinopril 10 mg Oral ta blet, Take 10 mg by mouth once daily. [...] you are taking, please contact our office .Other Important Guidelines Do not shave the surgical [...] or walk. Surgery Check in Locations Admitting [facility], ninth [facility] Surgery Check in Time: [...] is after office hours, call the [facility] shell press operator at [phone] and ask them to page him or h er. Preparing For Your Surgery Video -- 7 minutes of instructions! Access the [facility] website [email or web address] --> POPULAR RESOURCES --> Patient Guide --> [...] tab) MEDICAL DECISION MAKIN ACC/ AHA Perioperative Guidelines1. Need for emergency noncardiac surgery? b. No -> Proceed to next step. 2. Active Cardiac Conditions? These conditions mandate further investigation and manageme nt. A. Acute IL within 7 days: no B. Unstable angina/Recent IL (7- 30 days): no C. Decompensated CHF: [...] yes Rate of cardiac , non fatal IL, non fatal cardiac arrest (RCRI) 0 risk factors - 0.4% 1 risk factors - 1%, 2 risk factors - 7%, 3 or >risk factors - 11% (may benefit from perioperative beta blockers) Risk Factor Recommendations: 1-2 risk factors- proceed with planned surgery with HR control or consider noninvasive testing if it will configuration management administrator Surgery Risk: Intermediate Patient-related risk: Estimated ASA [...] this patient's care. ANGELINE ARAMBULA NP [facility] PREADMIT CLINIC [facility] PREOPERATIVE MEDICINE CLINIC AT [facility] 4TH FLOOR [address] [facility] [address] I counseled the patient regarding perioperative [...] | + +--------+ + + + | SC COLLECTION VENOUS | Routin | 02/28/2014 | [...] | + +--------+ + + + | AVELINO SCREEN, MRSA | Routin | 02/28/2014 | Preop examination | Results for this | | BY PCR, NASAL ONLY | e | 8:43 AM [...] (H) | 4.0 - 5.7 % | [facility], | | | A1C,POC | | | [...] + + + + | [facility] | [address] | [place] [address] | | | OF CARE TESTS | [...] not included in the IG count. Bands | LABORATORY | | are included in the neutrophil count. | SERVICES, CORE | + + + + + + + + | Performing | Address | City/State/Zipcode | Phone Number | | Organization | | | | + + + + + | [facility] | [address] | [place] [address] | | | SERVICES, CORE | PARK [...] | + + + + + | [facility] | [address] | [place] [address] | | | SERVICES, | [address] [...] + + + + + | [facility] | [address] | [place] [address] | | | SERVICES, | [address] [...] 330 | 200 - 400 mg/dL | [facility] | | | | | | LABORATORY | | | | | | SERVICES, | | | | | | CORE | | + +-------+ + + + + + | Specimen | + + | Blood - Blood | + + + + + | Narrative | Performed At | + + + | Test now performed at [facility]. New method effective 01/24/14. | [facility] | | | LABORATORY | | | SERVICES, CORE | + + + + + + + + | Performing | Address | City/State/Zipcode | Phone Number | | Organization | | | | + + + + + | [facility] | [address] | [place] [address] | | | SERVICES, NAY | [address] [...] - | | | | | | [place] | | + +-------+ + + + + + | Specimen | + + | Blood - Blood | + + + + + + + | Performing | Address | City/State/Zipcode | Phone Number | | Organization | | | | + + + + + | [facility] | [address] | [place] [address] | | | [place] | | | [...] | | | LABORATORY | | | [place] | | | SERVICES, | | | [...] [facility] | [address] | [place] [address] | | | SERVICES, CORE | PARK [...] | + + + + + | [facility] | [address] | [place] [address] | | | SERVICES, CORE | [address] [...] CRABTREE | | | | | | (4324) on 03/01/2014 | | | | | | 8:03:15 PM | | | | + + + + + + + + | Specimen | + + | | + + + + + | Narrative | Performed At | + + + | Please click | [facility] | | on view image for the detailed interpretation from [facility] results. | CARDIOLOGY | + + + + + | Procedure Note | + + | Interface, Cardiology Results - 03/01/2014 8:04 PM PDT Please click on view image | | for the detailed interpretation from [facility] results. | + + + + + + + | Performing | Address | City/State/Zipcode | Phone Number | | Organization | | | | + + + + + | [facility] | [address] | [place], [place] | | | CARDIOLOGY | [address] | [address] | | + + + + + [...]
--- OUTSIDE RECORDS SUMMARY | ~2019-01-28 | XMS | Encounter Summary ---
Demographics + + + | Address | [address] | | | [place] [address] | + + + | Home Phone [...] Team Providers + +------+ + | Care Production Sanitizer Name | Role | Phone | + +------+ + | Gracie Mariano MD | PCP | Unavailable | + +------+ + Reason for Visit + + + | Reason | Comments | + + + | Pre-op evaluation | gallstone pancreatitis | + + + Encounter Details +--------+ + + + + | Date | Type | Department | Care Team | Description | +--------+ + + + + | 03/08/ | Documentati | Trauma Center at | Raf Tello MD | Pre-op evaluation | | 2012 | on | [facility] [address] | | (gallstone | | | | [address] | | pancreatitis) | | | | Mailcode: L223A | | | | | | [facility] | | | | | | [address] [place], | | | | | | [place] [address] | | | | | | [phone] | | | +--------+ + + + [...]
--- OUTSIDE RECORDS SUMMARY | ~2019-01-28 | XMS | Encounter Summary ---
Demographics + + + | Address | [address] | | | [place] [address] | + + + | Home Phone [...] Author + + + | Author | [facility] | + + + | Organization | [facility] | + + + [...] Providers + +------+ + | Care Assistant Product Manager Name | Role | Phone | [...] | | 2012 | anned | [address] [facility] | | | | | | [facility] | | | | | | [place], [place] | | | | | | [address] | | | +--------+ + + + [...]
--- OUTSIDE RECORDS SUMMARY | ~2019-01-28 | XMS | Encounter Summary ---
Demographics + + + | Address | [address] | | | [place] [address] | + + + | Home Phone [...] Team Providers + +------+ + | Care Utility Division Project Manager Name | Role | Phone [...] | is, hip | [address] | [facility] | | | | | Ankylosing | [address] [facility] | Road | | | | | Spondylitis | HOSPITAL | Mailcode: | | | | | | [place], [place] | L223A | | | | | Cholecystiti | [address] | [facility] | | | | | s [address] | Phone: | [address] | | | | | hernia | [phone] | [place], [place] | | | | | Procedures | | [address] | | | | | lap choly | | Phone: | | | | | | | [phone] | | | | | | | Fax: | | | | | | | [phone] | +--------+--------+ + + + + Encounter [...] | [facility] [address] | [facility] [address] | Diabetes mellitus | | | | [facility] [address] | [place], [place] | ([facility]); [address] | | | | Mailcode: L223A | [address] | hernia | | | | [facility] | [phone] | | | | | [address] [place], [place] | | | | | | [address] | | | | | | [phone] | | | +--------+---------+ + + + [...] documented in this encounter Progress Notes Suraj Mnozon MD - 04/03/2013 3:15 PM PDTI saw [...] SURAJ Garcia MD [facility] GENERAL SURGERY [address] [place] [address] Mailcode: [address]a [place] [address] Casimiro Ball MBBS - 04/03/2013 [...] healin g well without erythema or discharge. [place] in place. These were removed and steri strips applied. Epigastric hernia is present. Non tender and easily reducible. Pathology/Scans: Final Pathologic Diagnosis: Gallbladder and contents, cholecystectomy: - Chronic cholecystitis - Cholelithiasis ASSESSMENT: This is Jorge L Cisneros, a 62 y.o. M, who is s/p lap converted to open cholecystectomy on 03/13. His recovery has been uneventful. PLAN: 1. [place] removed from incisions. Mastisol and steri strips appiled. 2. In regards to desire for hip replacement surgery, advised to wait another month until abdominal precautions are no longer required. 2. Return to clinic: PRN Dr. Monzon has seen and examined the patient and agrees with the above plan. Signed: Angel Nuñez MD General Surgery, [address] & [facility] Department of Surgery Page: [phone] documented i n this encounter Plan of [...]
--- OUTSIDE RECORDS SUMMARY | ~2019-01-28 | XMS | Encounter Summary ---
Demographics + + + | Address | [address] | | | [place] [address] | + + + | Home Phone [...] Providers + +------+ + | Care Digital Production Artist Name | Role | Phone | + +------+ + | Kita Schafer MD | PCP | | + +------+ + Encounter Details +--------+ + + + + | Date | Type | Department | Care Team | Description | +--------+ + + + + | 04// | Rn Assessment | Orthopaedics at | Jorge Walker MD | Osteoarthrosis, hip | | 2010 | | [facility] [address] | [address] | (Primary Dx) | | | | [facility] | [facility] | | | | | Mailcode: PV430 | [place], [place] | | | | | [facility] | [address] | | | | | [place], [place] | [phone] | | | | | [address] | | | | | | [phone] | | | +--------+ + + + [...]
--- OUTSIDE RECORDS SUMMARY | ~2019-01-28 | XMS | Encounter Summary ---
Demographics + + + | Address | [address] | | | [place] [address] | + + + | Home Phone [...] + + + | Author | [facility] | + + + | Organization | [facility] | + + + | [...] Team Providers + +------+ + | Care Ultra Sound Technician Name | Role | Phone | + +------+ + | Scooby Mcclure MD | PCP | | + +------+ + Encounter Details +--------+ + + + + | Date | Type | Department | Care Team | Description | +--------+ + + + + | 02/15/ | Procedure | Diagnostic Imaging | | | | 2018 | Pass | Services at [facility] | | | | | | [address] [facility] | | | | | | [facility] | | | | | | Mailcode: L340 [place] | | | | | | [facility] [place], | | | | | | [place] [address] | | | | | | [phone] | | | +--------+ + + + [...]
--- OUTSIDE RECORDS SUMMARY | ~2019-01-28 | XMS | Encounter Summary ---
Demographics + + + | Address | [address] | | | [place] [address] | + + + | Home Phone [...] Team Providers + +------+ + | Care Watch Assembly Inspector Name | Role | Phone | [...] | | 2013 | anned | [address] [facility] | | | | | | [facility] | | | | | | [place], [place] | | | | | | [address] | | | +--------+ + + + [...]
--- OUTSIDE RECORDS SUMMARY | ~2019-01-28 | XMS | Encounter Summary ---
Demographics + + + | Address | [address] | | | [place] [address] | + + + | Home Phone [...] Team Providers + +------+ + | Care Laryngologist Name | Role | Phone | + +------+ + | Gracie Mariano MD | PCP | Unavailable | + +------+ + Reason for Visit +---------+ + | Reason | Comments | +---------+ + | Post Op | | +---------+ + PROC - Inpatient Surgery [...] | | | is, hip Hip | [facility] | [address] | | | | | pain, | & Fractur | [address], | | | | | bilateral | [address] | [place] | | | | | Ankylosing | [address] | [address] | | | | | spondylitis | [place], | Phone: | | | | | ([facility]) | [place] [address] | [phone] | | | | | Procedures | Phone: | Fax: | | | | | REQUEST TO | [phone] | [phone] | | | | | SURGERY | Fax: | | | | | | EDITOR IN CHIEF | [phone] | | | | | | [place] TOTAL HIP | | | | | | | | | | | | | | ARTHROPLASTY | | | +--------+--------+ + + + + Encounter Details +--------+---------+ + + + | Date | Type | Department | Care Team | Description | +--------+---------+ + + + | 05/19/ | Office | Orthopaedics at | Maldonado Ewing, | Ankylosing | | 2011 | Visit | [facility] [address] | [place] | spondylitis (HCC); | | | | [facility] | | Osteoarthrosis, hip | | | | Mailcode: PV430 | | | | | | [facility] | | | | | | [place], [place] | | | | | | [address] | | | | | | [phone] | | | +--------+---------+ + + + [...] Weight | 115.7 kg (255 lb) | 05/19/2012 8:03 AM | | | | | PDT | | + + + + + | Height | 165.1 cm (5' 5") | 05/19/2012 8:03 AM | | | | | PDT | | + + + + + | Body Mass Index | 42.43 | 05/19/2012 8:03 AM | | | | | PDT | | + + + + + documented in this encounter Progress Notes Maldonado Ewing PA-C - 05/19/2012 8:21 AM PDT SUBJECTIVE Jorge L Cisneros was seen today about 2 weeks postop complex LTHA. He complains of mild to moderate left hip pain that is well controlled at this point with M S Contin. He has been wbat with a walker and is overall doing well. He has been doing phys ical therapy (SNF). He is still taking Aspirin as prescribed. No fever, chills, wound issu es. Patient states that he has been discharged from SNF today, will be going home after appo intment. OBJECTIVE: - Vitals: Ht 165.1 cm (5' 5")( < 3 %ile), Wt 115.667 kg (255 lbs)( < 3 %ile), BMI 42.43 kg/ (m^2). - Incision is healing well without signs of infection. Incision is clean and dry. No eryt isis or drainage. Moderate bruising noted. - There is a moderate amount of swelling locally at the hip and mild swelling distally in t he left LE. No localized tenderness in the lower leg. - Patient walks with an antalgic gait using a walker - 5 strength throughout left LE - Sensation intact throughout bilateral LE X-RAYS Postop xrays were reviewed with patient. New xrays were not performed in clinic today. ASSESSMENT: -Mr. Jorge L Cisneros is a 61 year old male about 2 weeks s/p Left SUSHIL, Progressing well PLAN: - Pt is to increase activity as tolerated with continued posterior hip precautions - Patient may begin formal PT at this time but was cautioned against doing any resistance e xercises (bands, weights, etc.) and to concentrate on home exercise program and advance walk ing as tolerated. - No refill requested at this time. They will wean down as tolerated. - Advised pt to continue with Aspirin as directed. - Follow up in [address] Walker - X-rays will be required at next visit (AP Pelvis (hip centered), AP/LAT hip) - Patient advised to call if increased wound erythema, drainage or any other concerns arise . No orders of the defined types were placed in this encounter. documented in this encounter Plan of Treatment Not on filedocumented as of this encounter Visit Diagnoses + + | Diagnosis | + + | Ankylosing spondylitis (HCC) Ankylosing spondylitis | + + | Osteoarthrosis, hip Localized osteoarthrosis not specified whether primary or | | secondary, pelvic region and thigh | + + documented in this encounter
--- OUTSIDE RECORDS SUMMARY | ~2019-01-28 | XMS | Encounter Summary ---
Demographics + + + | Address | [address] | | | [place] [address] | + + + | Home Phone [...] Author + + + | Author | [facility] | + + + | Organization | [facility] | + + + | Address [...] + +------+ + | Care Well Logging Mud Analysis Captain Name | Role | Phone | + +------+ + | Kita Schafer MD | PCP | | + +------+ + Encounter Details +--------+ + + + + | Date | Type | Department | Care Team | Description | +--------+ + + + + | 02/15/ | Abstract | Digestive Health | Harinder Felton, | | | 2011 | | Center at [facility] [address] | MD [address] | | | | | [address] | [place] [address] | | | | | Mailcode: Center | [phone] | | | | | for Health and | | | | | | [facility], [facility] [address] | | | | | | [place], [place] | | | | | | [address] | | | | | | [phone] | | | +--------+ + + + [...]
--- OUTSIDE RECORDS SUMMARY | ~2019-01-28 | XMS | Encounter Summary ---
Demographics + + + | Address | [address] | | | [place] [address] | + + + | Home Phone [...] Author + + + | Author | [facility] | + + + | Organization | [facility] | + + + | [...] Team Providers + +------+ + | Care Blueprinting Machine Operator Name | Role | Phone [...] [address] | | | | | | [facility] Mailcode: | | | | | | [address] | | | | | | [facility] | | | | | | [place], [place] | | | | | | [address] | | | | | | [phone] | | | +--------+ + + + [...]
--- OUTSIDE RECORDS SUMMARY | ~2019-01-28 | XMS | Encounter Summary ---
Demographics + + + | Address | [address] | | | [place] [address] | + + + | Home Phone [...] Providers + +------+ + | Care Technical Sales Support Manager Name | Role | Phone | [...] | | | 2013 | Event | [facility] | [address] | | | | | Admitting Desk | [facility], | | | | | Located on the | [place] [address] | | | | | [facility] [address] [facility] | | | | | | [facility] | | | | | | [place], [place] | | | | | | [address] | | | +--------+ + + + [...] | | | W MD Denise at [facility] | | | | [...]
--- OUTSIDE RECORDS SUMMARY | ~2019-01-28 | XMS | Encounter Summary ---
Demographics + + + | Address | [address] | | | [place] [address] | + + + | Home Phone [...] Author + + + | Author | [facility] | + + + | Organization | [facility] | + + + | [...] Providers + +------+ + | Care Medical Device Sales Consultant Name | Role | Phone | + +------+ + | Scooby Mcclure MD | PCP | | + +------+ + Encounter Details +--------+ + + + + | Date | Type | Department | Care Team | Description | +--------+ + + + + | 02/15/ | Procedure | Diagnostic Imaging | | | | 2018 | Pass | Services at [facility] | | | | | | [address] [facility] | | | | | | [facility] | | | | | | Mailcode: L[address] | | | | | | Hospital [place], | | | | | | [place] [address] | | | | | | [phone] | | | +--------+ + + + [...]
--- OUTSIDE RECORDS SUMMARY | ~2019-01-28 | XMS | Encounter Summary ---
Demographics + + + | Address | [address] | | | [place] [address] | + + + | Home Phone [...] Team Providers + +------+ + | Care Broth Mixer Name | Role | Phone | + [...] | | | is, hip Hip | [facility] | [address] | | | | | pain, | & Fractur | [address], | | | | | bilateral | [address] | [place] | | | | | Ankylosing | [address] | [address] | | | | | spondylitis | [place] | Phone: | | | | | ([facility]) | [place] [address] | [phone] | | | | | Procedures | Phone: | Fax: | | | | | REQUEST TO | [phone] | [phone] | | | | | SURGERY | Fax: | | | | | | RETAIL DISTRICT MANAGER | [phone] | | | | | | [place] TOTAL HIP | | | | | | | | | | | | | | ARTHROPLASTY | | | +--------+--------+ + + + + Encounter Details +--------+---------+ + + + | Date | Type | Department | Care Team | Description | +--------+---------+ + + + | 06/23/ | Office | Orthopaedics at | Jorge Walker MD | ERRONEOUS ENCOUNTER | | 2012 | Visit | [facility] [address] | [address] | - NO DIAGNOSIS | | | | [facility] | [facility] [address] | (Primary Dx) | | | | Mailcode: PV430 | [place], [place] | | | | | [facility] | [address] | | | | | [place], [place] | [phone] | | | | | [address] | | | | | | [phone] | | | +--------+---------+ + + + [...]
--- OUTSIDE RECORDS SUMMARY | ~2019-01-28 | XMS | Clinical Summary ---
Demographics + + + | Address | [address] | | | [place] [address] | + + + | Home Phone | | + + + | Preferred Language | Unknown | + + + | Marital Status | Unknown | + + + | Mosque Affiliation | 1041 | + + + | Race | Unknown | + + + | Ethnic Group | Unknown | + + + Author + + + | Author | [facility] | | | and [place] | + + + | Organization | [facility] | | [...] Team Providers + +------+ + | Care People Greeter Name | Role | Phone | + +------+ + PP | Unavailable | + +------+ + Allergies Not on File Medications Not on file Active Problems Not on file Social History + +-------+ +--------+------+ | Tobacco [...] recent travel history available. | + + Plan of Treatment + + [...] 65+ | 6 | | | | Low/Medium Risk (1 | | | | | of 2 - PCV13) | | | | + + + + + | Vaccine: Influenza | | | | | (Season Ended) | 9 | | | + + + + + Results Not on filefrom Last 3 Months"
--- OUTSIDE RECORDS SUMMARY | ~2019-01-28 | XMS | Encounter Summary ---
Demographics + + + | Address | [address] | | | [place] [address] | + + + | Home Phone [...] | | + + +---------+ + | eJan Funk | ECON | Unknown | Unavailable | + + +---------+ + Care Team Providers + +------+ + | Care Profile Mill Operator Tape Control Name | Role | Phone | + [...] | +--------+ + + + + | 12/14/ | Telephone-S | Preoperative | | Pre-op evaluation | | 2012 | cheduled | [facility] at | | | | | | MPV | | | | | | Stay [address] | | | | | | [facility] | | | | | | Mailcode: [id number] | | | | | | Bianca Poececelia | | | | | | [address] [place], [place] | | | | | | [address] | | | | | | [phone] | | | +--------+ + + + [...] | | | 2 | | reviewed, MIGUELITO held, anesthetic plan [...] | 20; Right; Forearm; Lidocaine; | Dianna Goyal, RN | Dianna Goyal, KARISSA | | Periph | Positive | | [...] of this encounter Patient Instructions Patient Instructions Paz Marc RN - 12/14/2012 11:06 AM PDT PREOPERATIVE INSTRUCTIONS Do not eat or drink anything after midnight the night before surgery. TAKE the following medications with a sip of water on the morning of surgery:LEVOTHYROXI NE 50 MCG TABLET METOPROLOL TARTRATE 25 MG TABLET MORPHINE 15 MG TABLET MORPHINE ER 60 MG TABLET,EXTENDED RELEASE Do NOT take the following medications on the morning of surgery: CHOLECALCIFEROL (VITAMIN D3) 5,000 UNIT CAPSULE CLOTRIMAZOLE 1 % TOPICAL CREAM ENOXAPARIN 40 MG/0.4 ML SUB-Q SYRINGE GLIPIZIDE 5 MG TABLET LISINOPRIL 10 MG TABLET MEDICAL MARIJUANA WARFARIN 1 MG TABLET WARFARIN 5 MG TABLET Do not take any Aspirin, vitamin E or non-steroidal anti-inflammatory (NSAIDs i.e. Advil , Aleve, Ibuprofen) or herbal supplements seven days prior to your surgery. These drugs may interfere with normal blood clotting and may cause excessive bleeding and bruising during or after the surgery. If you are taking Coumadin (warfarin), Plavix or any other blood thinners please let you r surgical team know as medication changes will be necessary. If you need a pain medication for general purposes, use Tylenol as directed. If you are in doubt about any medications that you are taking, please contact our office . Important Guidelines Do not shave the surgical area Do not smoke, drink alcohol or use recreational drugs f or 24 hours before your surgery Do not eat any hard candy or chew gum after midnight the night before your surgery. Watch for any change in your health condition. Let your surgeon know right away if you do not feel well. Do not wear makeup, perfume, lotions or powder. Remove any nail irish from at least one fingernail. Do not wear any jewelry to the hospital. Wear loose, comfortable clothing. Bring the case and solution for your contact lenses or wear your glasses. Leave all your valuables at home. Allow enough travel time so you re not late for your check in for surgery. Take a bath or shower and remember to shampoo your hair using your usual hair product be fore your arrival at the hospital. Please remember to brush your teeth the night before and the morning of your procedure. Surgery Check in Locations Day Stay Unit Bianca Garnett, fourth floor Room 4513 Surgery Check in Time: Someone from your surgeon's office or [facility] will provide you with information regarding your check in time. If you have any questions about this, pl ease contact your surgeon's office. Going Home Your surgical team will decide [...] deep sedation, and/or general anesthesia. If you have questions or concerns after you go home, call your doctor s office. If it is after office hours, call the [facility] separator operator shellfish meats at [phone] and ask them to page your doc tor. documented in this encounter Plan of Treatment Not on filedocumented as of this encounter Visit Diagnoses Not on filedocumented in this encounter"
--- OUTSIDE RECORDS SUMMARY | ~2019-01-28 | XMS | Encounter Summary ---
Demographics + + + | Address | [address] | | | [place] [address] | + + + | Home Phone [...] Team Providers + +------+ + | Care Computer Technical Specialist Name | Role | Phone | [...] | LAPAROSCOPIC | | 2012 | | [facility] | [address] [facility] | CHOLECYSTECTOMY, | | | | Admitting Desk | [facility], | CONVERTED TOOPEN | | | | Located on the | [place] [address] | INTRAOPERATIVE | | | | floor [address] [place] [address] | [phone] | CHOLANGIOGRAM, | | | | [facility] | | | | | | [place], [place] | | | | | | [address] | | | +--------+---------+ + + + [...] the resident s note. MILTON RODRÍGUEZ MD [facility] [address] [place] [address] romm, Raghavendra Hoyos MD - 0 03/20/2013 [...] of CVA. He was recently discharged from [facility] ([place], [place]) for acute cholecystitis. On 03/06/13 had sudden onset epigastric pain and self-presented to the hospital. Gallbladder US at that art e showed gallstones and possible acute cholecystitis. The patient eventually improved and wa s discharged for evaluation at [facility] EGS clinic. Prior abdominal surgery includes [...] might be different f rom the original. [facility] [place] DEPARTMENT OF SURGERY EMERGENCY GENERAL SURGERY Division [...] other applicable data points. Please refer to [employer]Up for this information . PHYSICAL EXAM: LAST [...] resol ution of constipation [place] [phone] [facility] A [address] [place] [address] arciTez fontaine ELECTRIC FRYING PAN REPAIRER - 03/17/2013 2:33 PM PDT [facility] [...] other applicable data points. Please refer to StepUp for this information . PHYSICAL EXAM: LAST [...] ABX on [place]bi[place] [phone] [facility] A [address] [facility] [address] Anais Mccarthy MD - 03/16/2013 8:58 AM [...] other applicable data points. Please refer to StepUp for this information . PHYSICAL EXAM: LAST [...] None Fluids: Saline locked Feeding: Diabetic Analgesia: EXCHANGE SPECIALIST 0.6/6mins Sedation: not indicated Thromboprophylaxis: enoxaparin, SCDs Head of bed: > 30 Ulcer prophylaxis: None Glycemic control: Insulin lispro Activity/PT/OT: Up ad farzana Yogurt: ABX on Probiotics: None TEZ RAINEY NP [facility] [address] Nathalia Mccarthy MD - 03/15/2013 10:24 AM [...] Pain: Pain is still 03/01 with increased EXCHANGE SPECIALIST 03/14 Flatus: NO Tolerating diet: Tolerating clears Nausea/Vomiting: None Bowel movement: NO Progressing with Physical Therapy: None, up ad farzana. The remainder of the complete review of system was negative. OBJECTIVE: I have reviewed the interval history and events. I have revewed the patients medications, l abs, vitals, and other applicable data points. Please refer to [facility] for this information . PHYSICAL EXAM: [...] chair TID Acute on Chronic Pain - EXCHANGE SPECIALIST dilaudid increase dose range and lockout. [...] None Fluids: Saline locked Feeding: Clears Analgesia: EXCHANGE SPECIALIST 0.6/6mins Sedation: not indicated Thromboprophylaxis: enoxaparin, SCDs Head of bed: > 30 Ulcer prophylaxis: None Glycemic control: Insulin lispro Activity/PT/OT: Up ad farzana Yogurt: ABX on Probiotics: [place] [phone] [facility] A [address] [place] [address] ez Rainey , ELECTRIC FRYING PAN REPAIRER - 03/14/2013 9:05 AM PDT [facility] DEPARTMENT OF SURGERY EMERGENCY GENERAL SURGERY Division of Trauma and Critical Care Attending Physician: Raf Tello MD Progress Note Note Date: 03/14/2013 Admission Date: 03/10/2013 JOSE RAFAEL CISNEROS, Hospital Day #4 INTERVAL HISTORY and SUBJECTIVE: history of chronic pain. EXCHANGE SPECIALIST with pain. Will adjust dos e [...] other applicable data points. Please refer to StepUp for this information . PHYSICAL EXAM: LAST [...] chair TID Acute on Chronic Pain - EXCHANGE SPECIALIST dilaudid increase dose range and lockout. [...] D51/2 with 20kl Feeding: NPO Analgesia: dilaudid EXCHANGE SPECIALIST Sedation: not indicated Thromboprophylaxis: enoxaparin 120mg bid for Antiphospholipid syndrome Head of bed: > 30 Ulcer prophylaxis: 2 Glycemic control: adequate Activity/PT/OT: Ongoing Yogurt: ABX on Probiotics: [place] TE[place]INEY NP '[phone] [facility] A [address] [place] [address] Richie Mandel MD - 03/14/2013 1:52 AM [...] other applicable data points. Please refer to [facility] for this information . PHYSICAL EXAM: [...] NEURO: Alert, oriented, gross motor function intact, floor molder grossly intact, LUNGS: CTAB CV: RRR, no [...] below: Likely DC george in AM, DC EXCHANGE SPECIALIST in AM Antiphospholipid antibody syndrome, chronic [...] None Fluids: PO Feeding: Reg Analgesia: dilaudid activity therapist Sedation: not indicated Thromboprophylaxis: Therapeutic lovenox Head of bed: > 30 Ulcer prophylaxis: n/a Glycemic control: SSI Activity/PT/OT: Ordered. - up ad farzana TID+[place] [phone] pager number [facility] A [address] [facility] [phone] Ricky Mosley MD - 03/13/2013 8:35 AM [...] Murry MD - 03/12/2013 7:10 AM PDT [facility] [place] DEPARTMENT OF SURGERY EMERGENCY GENERAL SURGERY PROGRESS NOTE: Note Date: 03/12/2013 Admission Date: 03/10/2013 JOSE RAFAEL CISNEROS, [id number] Hospital Day #2 SUBJECTIVE: - irritation and [...] [address] [place] [id number] Diagnoses: [id number] Cholecystitis [id number] Ventral hernia V72.83 Other specified pre-operative examination aArthur allan MD - 03/11/2013 7:02 AM PDT [facility] DEPARTMENT OF SURGERY Attending Physician: Raf Tello MD Progress Note Note Date: 03/11/2013 Admission Date: 03/10/2013 JOSE RAFAEL CISENROS, [id number] Hospital Day #1 INTERVAL HISTORY and SUBJECTIVE: [...] other applicable data points. Please refer to [facility] for this information . PHYSICAL EXAM: [...] up: EGS TBD. ARTHUR HERRERA MD Pager: [phone] [place] [address] documented in this en counter [...] CENTER [facility]ORY | [address] | [place] [address] | | | SERVICES, CORE | PARK [...] + + + + + | [facility] | [address] | [place] [address] | | | SERVICES, CORE | PARK [...] | | | LABORATORY | | | GRENADIAN | | | SERVICES, | | | [...] [facility] | [address] | [place] [address] | | | SERVICES, CORE | GENNARO [...] + + + | [facility] | [address] | [place] [address] | | | SERVICES, NAY | GENNARO [...] [facility] | [address] | [place], [place] | | | BABAR TAMEZ OF CARE | [facility] | [address] | | | TESTS | | | [...] [facility] | [address] | [place], [place] | | | BABAR TAMEZ OF CARE | [address] | [address] | | | TESTS | | | [...] [facility] | [address] | [place] [address] | | | NAY KANG | [address] [...] [facility] | [address] | [place] [address] | | | SERVICES, CORE | PARK [...] | | | LABORATORY | | | GRENADIAN | | | SERVICES, | | | [...] + + | [facility] | [address] | [place] [address] | | | SERVICES, CORE | GENNARO [...] | + + + + + | [facility] | [address] | [place] [address] | | | SERVICES, CORE | GENNARO [...] [facility] | [address] | [place], [place] | | | BABAR TAMEZ OF TIMUR | [address] | [address] | | | TESTS | | | [...] [facility] | [address] | [place], [place] | | | [facility] | [facility] | [address] | | | TESTS | | | [...] [facility] | [address] | [place], [place] | | | BABAR TAMEZ OF TIMUR | [facility] | [address] | | | TESTS | | | [...] [facility] | [address] | [place] [address] | | | SERVICES, CORE | GENNARO [...] + + | [facility] | [address] | [place] [address] | | | SERVICES, CORE | PARK [...] | | | LABORATORY | | | GRENADIAN | | | SERVICES, | | | [...] [facility] | [address] | [place] [address] | | | SERVICES, CORE | GENNARO [...] [facility] | [address] | [place] [address] | | | SERVICES, NAY | GENNARO [...] [facility] | [address] | [place], [place] | | | BABAR TAMEZ OF CARE | [address] | [address] | | | TESTS | | | [...] + + + | [facility] | [address] | [place], [place] | | | BABAR TAMEZ OF TIMUR | [address] | [address] | | | TESTS | | | [...] [facility] | [address] | [place], [place] | | | BABAR TAMEZ OF CARE | [address] | [address] | | | TESTS | | | [...] [facility] | [address] | [place] [address] | | | PEARL, CORE | [address] | | | + + + + + MAGNESIUM, PLASMA (03/16/2013 6:19 AM PDT) + +-------+ + + + | Component | Value | Ref Range | Performed | Pathologist | | | | | At | Signature | + +-------+ + + + | MAGNESIUM,P | 2.0 | 1.8 - 2.5 mg/dL | [facility] | | | LASMA | | | [...] + + + + + | [facility] | [address] | [place] [address] | | | SERVICES, CORE | GENNARO [...] | | | LABORATORY | | | GRENADIAN | | | SERVICES, | | | [...] | + + + + + | [facility] | [address] | [place] [address] | | | SERVICES, CORE | PARK [...] (H) | 0.90 - 1.20 INR | [facility] | | | | | | LABORATORY [...] [facility]ENTER [facility] | [address] | [place] [address] | | | SERVICES, CORE | PARK [...] - [facility] | [address] | [place], [place] | | | JOI POINT OF CARE | [address] | [address] | | | TESTS | | | [...] + + + | [facility] | [address] | [place], [place] | | | JOI POINT OF CARE | [address] | [address] | | | TESTS | | | [...] [facility] | [address] | [place], [place] | | | BABAR TAMEZ OF CARE | [address] | [address] | | | TESTS | | | [...] - [facility] | [address] | [place], [place] | | | JOI POINT OF CARE | [address] | [address] | | | TESTS | | | [...] | | POC | | | BABAR TAMZE | | | | | | OF [...] [facility] | [address] | [place], [place] | | | JOI POINT OF CARE | [address] | [address] | | | TESTS | | | [...] | + + + + + | [facility] | [address] | [place] [address] | | | NAY KANG | [address] | | | + + + + + OPERATION RECORD (03/15/2013 1:17 PM PDT) + + | Transcriptions | + + | Devin Gonzalez MD - 03/13/2013 2:30 PM PDT Date: 03/13/2013 | | | | Attending Surgeon: Steffen Rodríguez M.D. | | | | Urban Redevelopment Specialist(s): Devin Gonzalez MD | | Ricky Alexander [...] He was told to follow up in [facility] EGS clinic for further care. | [...] | | The patient was taken to [facility] OR number 6 and placed in [...] | | PD / HS | | [id number] / [id number] / [id number] / | | | | | + [...] [facility] | [address] | [place], [place] | | | [facility] | [address] | [address] | | | TESTS | | | [...] + + + + + | [facility] | [address] | [place] [address] | | | SERVICES, CORE | PARK [...] [facility] | [address] | [place] [address] | | | SERVICES, CORE | PARK [...] | | | LABORATORY | | | GRENADIAN | | | SERVICES, | | | [...] [facility] | [address] | [place] [address] | | | SERVICES, CORE | PARK [...] [facility]ENTER [facility] | [address] | [place] [address] | | | SERVICES, CORE | GENNARO [...] [facility] | [address] | [place], [place] | | | BABAR TAMEZ OF CARE | [address] | [address] | | | TESTS | | | [...] [facility] | [address] | [place], [place] | | | JOI POINT OF CARE | [address] | [address] | | | TESTS | | | [...] - E[facility] | [address] | [place], [place] | | | JOI POINT OF CARE | [address] | [address] | | | TESTS | | | [...] + + + + + | [facility] | [address] | [place] [address] | | | SERVICES, CORE | GENNARO [...] [facility] | [address] | [place] [address] | | | SERVICES, CORE | PARK [...] | | | LABORATORY | | | GRENADIAN | | | SERVICES, | | | [...] + + + + + | [facility] | [address] | [place] [address] | | | SERVICES, CORE | PARK [...] + + + + + | [facility] | [address] | [place] [address] | | | SERVICES, CORE | PARK [...] ELL[facility] | [address] | [place], [place] | | | BABAR TAMEZ OF TIMUR | [address] | [address] | | | TESTS | | | [...] [facility] | [address] | [place], [place] | | | JOI POINT OF CARE | [address] | [address] | | | TESTS | | | [...] [facility] | [address] | [place], [place] | | | [facility] | [facility] | [address] | | | TESTS | | | [...] [facility] | [address] | [place], [place] | | | BABAR TAMEZ OF [place] | [address] | [address] | | | TESTS | | | [...] [facility] | [address] | [place] [address] | | | NAY KANG | GENNARO [...] | 1.5 | 0.5 - 1.6 | [facility] - | | | | | mmol/L [...] [facility] | [address] | [place], [place] | | | JUDIT TAMEZ | [address] | [address] | | | TESTS | | | [...] [facility] | [address] | [place], [place] | | | BABAR TAMEZ OF TIMUR | [facility] | [address] | | | TESTS | | | [...] [facility] | [address] | [place], [place] | | | HILL, POINT OF CARE | [address] | [address] | | | TESTS | | | [...] [facility] - | | | POC | [...] - [facility] | [address] | [place], [place] | | | JOI POINT OF CARE | [facility] | [address] | | | TESTS | | | [...] [facility] | [address] | [place], [place] | | | JOI POINT OF CARE | [address] | [address] | | | TESTS | | | [...] [facility] | [address] | [place], [place] | | | BABAR TMAEZ OF CARE | [facility] | [address] | | | TESTS | | | [...] [facility] | [address] | [place], [place] | | | BABAR TAMEZ OF CARE | [address] | [address] | | | TESTS | | | [...] [facility] | [address] | [place], [place] | | | BABAR TAMEZ OF CARE | [address] | [address] | | | TESTS | | | [...] [facility] | [address] | [place], [place] | | | JOI POINT OF CARE | [address] | [address] | | | TESTS | | | [...] | + + + + + | [facility] | [address] | [place] [address] | | | SERVICES, CORE | GENNARO [...] [facility] | 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 | [place], [place] | | | BABAR TAMEZ OF CARE | [address] | [address] | | | TESTS | | | [...] [facility] | [address] | [place], [place] | | | JOI POINT OF CARE | [address] | [address] | | | TESTS | | | [...] [facility] | [address] | [place], [place] | | | BABAR TAMEZ OF TIMUR | [address] | [address] | | | TESTS | | | [...] + + + + + | [facility] | [address] | [place] [address] | | | SERVICES, CORE | GENNARO [...] [facility] | [address] | [place] | | | BABAR TAMEZ OF CARE | [address] | [address] | | | TESTS | | | [...] [facility] | [address] | [place], [place] | | | BABAR TAMEZ OF TIMUR | [address] | [address] | | | TESTS | | | [...] [facility] | [address] | [place] | | | BABAR TAMEZ OF CARE | [address] | [address] | | | TESTS | | | [...] [facility] | [address] | [place] | | | BABAR TAMEZ OF TIMUR | [address] | [address] | | | TESTS | | | [...] [facility] | [address] | [place] [address] | | | PEARL, NAY | [address] [...] [facility] | [address] | [place], [place] | | | [facility] | [facility] | [address] | | | TESTS | | | [...] [facility] | [address] | [place] [address] | | | SERVICES, | [address] [...] [facility] | [address] | [place] [address] | | | SERVICES, | [address] [...] [facility] | [address] | [place] [address] | | | SERVICES, CORE | [address] | | | + + + + + LIPASE, PLASMA (03/10/2013 6:21 PM PDT) + +---------+ + + + | Component | Value | Ref Range | Performed | Pathologist | | | | | At | Signature | + +---------+ + + + | LIPASE | 126 (L) | 152 - 353 U/L | [facility] | | | (LAB) | | | [...] [facility] | [address] | [place] [address] | | | SERVICES, CORE | PARK [...] + + + + + | [facility] | [address] | [place] [address] | | | PEARL, NAY | P[address] [...] + + + + + | [facility] | [address] | [place] [address] | | | SERVICES, NAY | GENNARO [...] [facility] | [address] | [place] [address] | | | SERVICES, CORE | PARK [...] [facility] | [address] | [place] [address] | | | SERVICES, CORE | PARK [...] [facility] | [address] | [place] [address] | | | SERVICES, CORE | PARK [...] | | | LABORATORY | | | GRENADIAN | | | SERVICES, | | | [...] Interpretive Information: <60 mL/min/1.73 sq | SERVICES, [facility] | | m Chronic Kidney Disease [...] [facility] | [address] | [place] [address] | | | NAY KANG | [address]AR[address] [...] [facility] | [address] | [place], [place] | | | JOI POINT OF CARE | [address] | [address] | | | TESTS | | | [...] + + + | Please click | [facility] DEPT OF | | on view image for the detailed interpretation from [employer] results. | CARDIOLOGY | + + + + + | Procedure Note | + + | Interface, Cardiology Results - 03/10/2013 7:22 PM PDT Please click on view image | | for the detailed interpretation from [employer] results. | + + + + + + + | Performing | Address | City/State/Zipcode | Phone Number | | Organization | | | | + + + + + | [facility] | [address] | [place], [place] | | | CARDIOLOGY | [address] | [address] | | + + + + + [...]
--- OUTSIDE RECORDS SUMMARY | ~2019-01-28 | XMS | Encounter Summary ---
Demographics + + + | Address | [address] | | | [place] [address] | + + + | Home Phone [...] Team Providers + +------+ + | Care Ambulatory Technologist Name | Role | Phone | + [...] staple removal) | | | | [address] [place], [place] | [place], [place] | | | | | [address] | [address] | | | | | [phone] | [phone] | | | | | | | [...]
--- OUTSIDE RECORDS SUMMARY | ~2019-01-28 | XMS | Encounter Summary ---
Demographics + + + | Address | [address] | | | [place] [address] | + + + | Home Phone | | + + + | Preferred Language | Unknown | + + + | Marital Status | Single | + + + | Congregation Affiliation | 1041 | + + + | Race | Unknown | + + + | Ethnic Group | Unknown | + + + Author + + + | Author | [facility] [employer] | + + + | Organization | [facility] [employer] | + + + | Address | Unknown | + + + | Phone | Unavailable | + + + Support + + +---------+ + | Name | Relationship | Address | Phone | + + +---------+ + | Di Cisneros | ECON | Unknown | | + + +---------+ + Care Team Providers + +------+ + | Care Rehabilitation Physician Name | Role | Phone | + +------+ + | Scooby Mcclure MD | PCP | | + +------+ + Encounter Details +--------+ + + + + | Date | Type | Department | Care Team | Description | +--------+ + + + + | 11/09/ | Documentati | [facility] | [facility] | | | 2019 | on Only | [facility] | Neuroscience [address] | | | | | [address] | [address] | | | | | [place], [place] | [place] [address] | | | | | [address] | [phone] | | | | | [phone] | | | +--------+ + + + [...] + as of this encounter Progress Notes LindsayRea N - 11/09/2018 12:31 PM PDTMaria A Mckeon Auth for 11/09/18in this encounter Plan of Treatment +--------+ + + + + | Date | Type | Specialty | Care Team | Description | +--------+ + + + + | 05/01/ | Initial | Neurology | Sarahi Jade, | | | 2018 | consult | | MD Sushil Yang | | | | | | [place] | | | | | | [address] | | | | | | | | +--------+ + + + + as of this encounter Visit Diagnoses Not on filein this encounter"
--- OUTSIDE RECORDS SUMMARY | ~2019-01-28 | XMS | Encounter Summary ---
Demographics + + + | Address | [address] | | | [place] [address] | + + + | Home Phone [...] Team Providers + +------+ + | Care Surgical Attendant Name | Role | Phone | + +------+ + | Kita Schafer MD | PCP | | + +------+ + Encounter Details +--------+------+ + + + | Date | Type | Department | Care Team | Description | +--------+------+ + + + | 02/19/ | Lab | Laboratory at [facility] | | Thrombosis | | 2010 | | [address] | | | | | | [place], [place] | | | | | | [address] | | | | | | [phone] | | | +--------+------+ + + + [...] DEPARTMENT OF | [address] | [place] [address] | | | PATHOLOGY | [address] [...] DEPARTMENT OF | [address] | [place] [address] | | | PATHOLOGY | [address] [...] | LABORATORY | | | | at [facility], | | | | | | [place], [place]. | | | | + + + + + + + + | Specimen | + + | Blood - Blood | + + + + + | Narrative | Performed At | + + + | [facility] [facility]) | [facility] | | [facility] [place] [address] [address] [facility] | REGIONAL | | [place] [address] | LABORATORY | + + + + + + + + | Performing | Address | City/State/Zipcode | Phone Number | | Organization | | | | + + + + + | [facility] | [address] | [place] [address] | | | LABORATORY | | | [...] DEPARTMENT OF | [address] | [place] [address] | | | PATHOLOGY | [address] [...] | [facility] | | obtained with the [employer] B2GP1 IgGMA TRIPP. B2GP1 | DEPARTMENT OF | | IgGMA values obtained with different hog scalder's assay methods | PATHOLOGY | | may [...] + + + + | [facility] | [address] | [place] [address] | | | PATHOLOGY | [address] [...] + + + + | [facility] DEPARTMENT OF | [address] | [place] [address] | | | PATHOLOGY | [address] [...] + + + + | [facility] | [address] | [place] [address] | | | PATHOLOGY | [address] | | | + + + + + documented in this encounter Visit Diagnoses + + | Diagnosis | + + | Thrombosis Embolism and thrombosis of unspecified site | + + documented in this encounter"
--- OUTSIDE RECORDS SUMMARY | ~2019-01-28 | XMS | Encounter Summary ---
Demographics + + + | Address | [address] | | | [place] [address] | + + + | Home Phone [...] Team Providers + +------+ + | Care Student Loan Counselor Name | Role | Phone | + [...] | | | 2018 | Event | [facility] | DENTAL LABORATORY WORKER [address] [facility] | | | | | Admitting Desk | [facility] | | | | | Located on the 9 | [place], [place] | | | | | [facility] [address] [facility] | [address] | | | | | [facility] | [phone] | | | | | [place], [place] | | | | | | [address] | | | +--------+ + + + [...]
--- OUTSIDE RECORDS SUMMARY | ~2019-01-28 | XMS | Encounter Summary ---
Demographics + + + | Address | [address] | | | [place] [address] | + + + | Home Phone [...] Team Providers + +------+ + | Care School Of Nursing Director Name | Role | Phone | [...] | Rheumatology | Diagnoses | Scott | [facility] | | | | | Ankylosing | MD Adriano | [address] | | | | | spondylitis | [address] | [place] | | | | | ([facility]) | Ave | [address] | | | | | Procedures | [place], [place] | Mailcode: | | | | | CONSULT TO | [address] | OP09 | | | | | RHEUMATOLOGY | | Physicians | | | | | | | [address] | | | | | | | Floor | | | | | | | [place], [place] | | | | | | | [address] | | | | | | | Phone: | | | | | | | [phone] | | | | | | | Fax: | | | | | | | [phone] | +--------+--------+ + + + + Encounter Details +--------+---------+ + + + | Date | Type | Department | Care Team | Description | +--------+---------+ + + + | 12/07/ | Office | Rheumatology at | Yulisa Hearn, | Ankylosing | | 2013 | Visit | Rosette Garnett | [address] | spondylitis (HCC) | | | | [address] [facility] | [address] | (Primary Dx) | | | | [facility] | [place] [address] | | | | | Mailcode: PV35 | [phone] | | | | | [address]ette Garnett | | | | | | [place], [place] | | | | | | [address] | | | | | | [phone] | | | +--------+---------+ + + + [...] findings, assessment and plan. Celina Soto M.D. [address] [facility] Mailcode: Pv35 [facility] [address] Yulisa Winchester MD - 8:26 AM PDT RHEUMATOLOGY FOLLOW UP-12/07/13 Last visit 05/05 CC: Chief Complaint Patient presents with Ankylosing spondylitis HPI: This is a 62 y.o. male, here for follow up of ankylosing spondylitis. -Diagnosed with in late 70' in [place] by his PCP, but was never referred [...] This was postponed sec to his uncontrolled [id number] in 07/05. Has pain and stiffness in [...] refer to patient queationnaire scanned in [facility]: Past Medical History Diagnosis Date Diabetes [...] bilateral hip arthrop athy and probable erosions [place] PELVIS 1 VIEW, 05/10/12 There has been [...] YULISA HEARN MD RHEUMATOLOGY FELLOWS [address] [facility] Mailcode: [id number] [place] [address] documented in this en counter Plan of [...] | + + + + + | [facility] | [address] | [place] [address] | | | SERVICES, SPECIAL | [address]ARK [...] + | [facility] | [address] | [place] [address] | | | [place] | | | [...] + + + + | [facility] [employer] | [address] | [place] [address] | | | [place], NAY | [address] | | | + + + + + documented in this encounter Visit Diagnoses + + | Diagnosis | + + | Ankylosing spondylitis (HCC) - Primary Ankylosing spondylitis | + + documented in this encounter
--- OUTSIDE RECORDS SUMMARY | ~2019-01-28 | XMS | Encounter Summary ---
Demographics + + + | Address | [address] | | | [place] [address] | + + + | Home Phone | | + + + | Preferred Language | Unknown | + + + | Marital Status | Single | + + + | Anglican Affiliation | BAP | + + + [...] Team Providers + +------+ + | Care Workers Compensation Claims Assistant Name | Role | Phone | + +------+ + | Kita Schafer MD | PCP | | + +------+ + Reason for Visit + + + | Reason | Comments | + + + | Medical Records | | | Review | | + + + Encounter Details +--------+ + + + + | Date | Type | Department | Care Team | Description | +--------+ + + + + | 02/01/ | Documentati | Endoscopic | Lab, Gi Procedure | Medical Records | | 2011 | on | Procedural Unit at | | Review | | | | [facility] | | | | | | [address] | | | | | | Mailcode: OC2L | | | | | | [facility] | | | | | | and [place], | | | | | | [address] | | | | | | [place], [place] | | | | | | [address] | | | | | | [phone] | | | +--------+ + + + [...]
--- OUTSIDE RECORDS SUMMARY | ~2019-01-28 | XMS | Encounter Summary ---
Demographics + + + | Address | [address] | | | [place] [address] | + + + | Home Phone [...] Team Providers + +------+ + | Care Ingot Supervisor Name | Role | Phone | + +------+ + | Gracie Mariano MD | PCP | Unavailable | + +------+ + Encounter Details +--------+ + + + + | Date | Type | Department | Care Team | Description | +--------+ + + + + | 11/24/ | Hospital | LAB SURGICAL | | | | 2012 | Encounter | PATHOLOGY [address] | | | | | | [address] | | | | | | Road [place], [place] | | | | | | [address] | | | +--------+ + + + [...]
--- OUTSIDE RECORDS SUMMARY | ~2019-01-28 | XMS | Encounter Summary ---
Demographics + + + | Address | [address] | | | [place] [address] | + + + | Home Phone [...] Team Providers + +------+ + | Care Conciliator Name | Role | Phone | + +------+ + | Gracie Mariano MD | PCP | Unavailable | + +------+ + Encounter Details +--------+ + + + + | Date | Type | Department | Care Team | Description | +--------+ + + + + | 05/24/ | Document-Sc | UNKNOWN DEPARTMENT | Unknown . | | | 2012 | anned | [address] [facility] | | | | | | [facility] | | | | | | [place], [place] | | | | | | [address] | | | +--------+ + + + [...]
--- OUTSIDE RECORDS SUMMARY | ~2019-01-28 | XMS | Encounter Summary ---
Demographics + + + | Address | [address] | | | [place] [address] | + + + | Home Phone [...] Team Providers + +------+ + | Care Practical Nursing Teacher Name | Role | Phone | + +------+ + | Gracie Mariano MD | PCP | Unavailable | + +------+ + Encounter Details +--------+ + + + + | Date | Type | Department | Care Team | Description | +--------+ + + + + | 12/13/ | Telephone | Digestive Health | Adriano Chavez, | | | 2013 | | [place] at [facility] [address] | | | | | | [address] | | | | | | Mailcode: Center | | | | | | [facility] and | | | | | | [facility], [facility] [address] | | | | | | [place], [place] | | | | | | [address] | | | | | | [phone] | | | +--------+ + + + [...]
--- OUTSIDE RECORDS SUMMARY | ~2019-01-28 | XMS | Encounter Summary ---
Demographics + + + | Address | [address] | | | [place] [address] | + + + | Home Phone [...] Team Providers + +------+ + | Care Shampoo Assistant Name | Role | Phone | [...] Rossi | pre-operative | | | | [facility] [address] | | examination (Primary | | | | Mailcode: [id number] | | Dx); Ankylosing | | | | [facility] | | spondylitis (HCC); | | | | [place], [place] | | Osteoarthrosis, hip | | | | [address] | | | | | | [phone] | | | +--------+---------+ + + + [...] surgeries scheduled to take place on the [place] at the [facility]: Surgeries scheduled in the [facility] ( [facility]): registration is located on the 4th floor of [facility] (Day Surgery). Surgeries scheduled in the [facility]: registration is located on the 9th floor. Surgeries scheduled in [facility]: registration is located on the 6th floor. Surgeries scheduled in the [facility]: registration is located i n the [facility] on the first floor. For surgeries scheduled to take place at the [facility]: registration is [...] If you use specialized medical equipment at [facility], please check with your provider before [...] surgeries scheduled to take place on the [place] at the [facility]: Surgeries scheduled in the [facility] ( North): registration is located on the 4th floor of [facility] (Day Surgery). Surgeries scheduled in the [facility]: registration is located on the 9th floor. Surgeries scheduled in [facility]: registration is located on the 6th floor. Surgeries scheduled in the [facility]: registration is located i n the [facility] on the first floor. For surgeries scheduled to take place at the [facility]: registration is [...] If you use specialized medical equipment at [facility], please check with your provider before [...] by ALLEGRA Pulliam. ROSA M SMART MD [facility] [address] [place] [address] Mailcode: [id number] [place] [phone] Jan Leal PA-C - 08/22/2009 10:51 AM [...] RLB (Airport | | | Way Lab) [facility] [address] | | | [place] [address] | | + + + + + + + + | Performing | Address | City/State/Zipcode | Phone Number | | Organization | | | | + + + + + | [facility] | [address] | [place] [address] | | | LABORATORY | | | [...] DEPARTMENT OF | [address] | [place] [address] | | | PATHOLOGY | [address] [...] | | | DEPARTMENT | | | [place] | | | OF | | | [...] + + + + + | [facility] | [address] | [place] [address] | | | PATHOLOGY | [address] [...] + + + + + | [facility] | [address] | [place] [address] | | | PATHOLOGY | [address] [...]
--- OUTSIDE RECORDS SUMMARY | ~2019-01-28 | XMS | Encounter Summary ---
Demographics + + + | Address | [address] | | | [place] [address] | + + + | Home Phone | | + + + | Preferred Language | Unknown | + + + | Marital Status | Single | + + + | Anabaptist Affiliation | BAP | + + + [...] Team Providers + +------+ + | Care Port Traffic Manager Name | Role | Phone | [...] | | 2012 | anned | [address] [facility] | | | | | | [facility] | | | | | | [place], [place] | | | | | | [address] | | | +--------+ + + + [...]
--- OUTSIDE RECORDS SUMMARY | ~2019-01-28 | XMS | Encounter Summary ---
Demographics + + + | Address | [address] | | | [place] [address] | + + + | Home Phone [...] Team Providers + +------+ + | Care Customs Guard Name | Role | Phone | + +------+ + | Gracie Mariano MD | PCP | Unavailable | + +------+ + Reason for Visit + + + | Reason | Comments | + + + | Consultation | | + + + AUTH/CERT +--------+--------+ [...] | | 2013 | Visit | at [facility] [address] | [address] | ossification of bone | | | | Taj Hernandez | [place], | (Primary Dx) | | | | [place] | [place] [address] | | | | | [place], | [phone] | | | | | [place] [address] | | | | | | [phone] | | | +--------+---------+ + + + [...] | 165.1 cm (5' 5") | 03/13/2014 6:35 PM | | | | | PDT | | + + + + + | Body Mass Index | - | - | | + + + + + documented in this encounter Progress Notes Raf Smith MD - 03/14/2014 6:47 PM PDTI saw and examined Mr. Cisneros with Dr. Ji. I agree with Dr. Ji's findings on examination and his treatment plan. Mr. Cisneros has ankylosing spondylitis. Mr. Cisneros is known to us from his 2011 prophylactic radiation to the left hip. He is now s/p right hip arthroplasty and we plan radiation to decrease the risk of heteroto pic ossification around the right hip joint. JH anzhen, Karen Aguero MD - 0 03/13/2014 8:22 PM PDT RADIATION ONCOLOGY CONSULTATION Requesting Provider: Jorge Walker MD Chief Complaint: Right hip pain Identification: 63 year old man with h/o severe osteoarthritis and with history of ankylosi ng spondylitis with complete spine involvment and bilateral hip involvement s/p left total h ip arthroplasty 05/09/12 and post-op HO prophylaxis RT to 7 Gy x1. He returns after R total h ip arthroplasty 03/12/14 to receive post-op HO prophylaxis RT to 7 Gy x1. His actual calculat ed dose received was 655 cGy after further evaluation. History of Present Illness: Jorge L Cisneros is a 63 year old man from [place], [place], with a history of ankylosis spondylit is with complete spine involvment and bilateral hip involvement s/p left total hip arthropla sty 05/09/12 and post-op HO prophylaxis RT the following day, 05/10/12. He was set to undergo right hip arthroplasty which had been delayed until 03/12/14 due to poorly controlled diabete s. The orthopedic surgery team has formally consulted radiation therapy for heterotopic ossi fication prophylaxis radiation after his recent right total hip arthroplasty. With respect to his rheumatological disorder, he has deferred Humira until after his R tota l hip arthroplasty. His ankylosing spondylitis limits his ability to flex his hips to a poin t where he has to have a tilt motion in his chair to help him position in and out of positio n. He has pain from C-spine all the way down to the bilateral hips with concurrent stiffness for the large majority of the day. He generally sleeps at night in a recliner chair as he c annot lie flat. The patient is being seen today in consultation for consideration of radiotherapy options. Past Medical History: Patient Active Problem List Diagnosis Date Noted Antiphospholipid antibody syndrome Difficult intubation Overview Note: glidescope used for intubation Hypertension 03/16/2013 Diabetes mellitus 03/16/2013 Chronic pain 03/16/2013 Pruritus 03/16/2013 Cholecystitis 03/10/2013 Ventral hernia 03/10/2013 Osteoarthrosis, hip 05/23/2009 Overview Note: Right hip [...] modifier, incisional wound vac 05/09/2012 Cholecystectomy 06/2013 Medications . Controlled Medications - Schedule II and III Medication Sig Dispense Refill OrderDate EndDate morphine 15 mg Oral tablet Take 1-2 Tabs by mouth every three hours as needed for sev ere pain. 45 Tab 0 03/19/2013 morphine 15 mg Oral tablet Take 1 Tab by mouth every four hours as needed for severe pain. 200 Tab 0 05/10/2012 Facility-Administered Medications Ordered in Other Visits Medication Dose Route Frequency Provider Last Rate Last Dose acetaminophen (TYLENOL) tablet 1,000 mg 1,000 mg oral Q6H Ender Wallis MD bisacodyl (DULCOLAX) suppository 10 mg 10 mg rectal BID PRN Ender Wallis MD dextrose 50 % IV 25 mL 25 mL intravenous PRN Ender Wallis MD glipiZIDE (GLUCOTROL) tablet 5 mg 5 mg oral BID Ender Wallis MD 5 mg at 02/21 10/06 09 glucagon (GLUCAGEN) injection 1 mg 1 mg intramuscular PRN Ender Wallis MD glucose chewable tablet 16 g 16 g oral PRN Ender Wallis MD insulin glargine (LANTUS) injection 44 Units 44 Units subcutaneous HS Ender rios MD 44 Units at 03/12/14 2347 insulin lispro (HUMALOG) injection subcutaneous MEALS and HS Ender Wallis MD 1 Units at 03/12/14 2348 lactated ringers IV 150 mL/hr intravenous CONTINUOUS Ender Wallis MD 150 mL/ hr at 03/12/14 1220 levothyroxine tablet 25 mcg 25 mcg oral DAILY Ender Wallis MD 25 mcg at 02/21 10/06 0713 lidocaine (LIDODERM) 5 %(700 mg/patch) patch 3 patch 3 patch transdermal Q24H Emory Gee NP lisinopril (PRINIVIL) tablet 10 mg 10 mg oral DAILY Ender Wallis MD 10 mg at 03/13/14 0908 morphine (MS IR) tablet 15-30 mg 15-30 mg oral Q3H PRN Ender Wallis MD 30 mg at 03/13/14 1326 morphine injection 1-4 mg 1-4 mg intravenous Q2H PRN Ender Wallis MD 2 mg at 03/13/14 0148 ondansetron (ZOFRAN) injection 4 mg 4 mg intravenous Q12H PRN Ender Wallis MD polyethylene glycol (MIRALAX) powder 17 g 17 g oral DAILY PRN Ender Wallis MD Or polyethylene glycol (MIRALAX) powder 17 g 17 g feeding tube DAILY PRN Ender rios MD senna-docusate (SENOKOT S) 8.6-50 mg 1 tablet 1 tablet oral BID Flo Mina D 1 tablet at 03/13/14 0908 warfarin (COUMADIN) tablet 9 mg 9 mg oral QPM Ender Wallis MD Current Facility-Administered Medications on File Prior to Visit Medication Dose Route Frequency Provider Last Rate Last Dose acetaminophen (TYLENOL) tablet 1,000 mg 1,000 mg oral Q6H Ender Wallis MD bisacodyl (DULCOLAX) suppository 10 mg 10 mg rectal BID PRN Ender Wallis MD dextrose 50 % IV 25 mL 25 mL intravenous PRN Ender Wallis MD glipiZIDE (GLUCOTROL) tablet 5 mg 5 mg oral BID Ender Wallis MD 5 mg at 02/21 10/06 0908 glucagon (GLUCAGEN) injection 1 mg 1 mg intramuscular PRN Ender Wallis MD glucose chewable tablet 16 g 16 g oral PRN Ender Wallis MD insulin glargine (LANTUS) injection 44 Units 44 Units subcutaneous HS Ender rios MD 44 Units at 03/12/14 2347 insulin lispro (HUMALOG) injection subcutaneous MEALS and HS Ender Wallis MD 1 Units at 03/12/14 2348 lactated ringers IV 150 mL/hr intravenous CONTINUOUS Ender Wallis MD 150 mL/ hr at 03/12/14 1220 levothyroxine tablet 25 mcg 25 mcg oral DAILY Ender Wallis MD 25 mcg at 02/21 10/06 0713 lidocaine (LIDODERM) 5 %(700 mg/patch) patch 3 patch 3 patch transdermal Q24H Emory Gee NP lisinopril (PRINIVIL) tablet 10 mg 10 mg oral DAILY Ender Wallis MD 10 mg at 03/13/14 0908 morphine (MS IR) tablet 15-30 mg 15-30 mg oral Q3H PRN Ender Wallis MD 30 mg at 03/13/14 1326 morphine injection 1-4 mg 1-4 mg intravenous Q2H PRN Ender Wallis MD 2 mg at 03/13/14 0148 ondansetron (ZOFRAN) injection 4 mg 4 mg intravenous Q12H PRN Ender Wallis MD polyethylene glycol (MIRALAX) powder 17 g 17 g oral DAILY PRN Ender Wallis MD Or polyethylene glycol (MIRALAX) powder 17 g 17 g feeding tube DAILY PRN Ender rios MD senna-docusate (SENOKOT S) 8.6-50 mg 1 tablet 1 tablet oral BID Flo Mina D 1 tablet at 03/13/14 0908 warfarin (COUMADIN) tablet 9 mg 9 mg oral QPM Ender Wallis MD Current Outpatient Prescriptions on File Prior to Visit Medication Sig Dispense Refill adalimumab 40 mg/0.8 mL Subcutaneous Pen Injector Kit Inject 0.8 mL under the skin (S UBC) every fourteen days. As directed. 6 kit 3 Cholecalciferol, Vitamin D3, 5,000 unit Oral capsule Take 5,000 Units by mouth once d aily. clotrimazole 1 % Topical Cream Apply to affected area two times daily. Apply to affec radha area for 7 consecutive days. glipiZIDE 5 mg Oral tablet Take 5 mg by mouth two times daily. insulin glargine 100 unit/mL subcutaneous solution Inject 44 Units under the skin (SWEET BC) once daily at bedtime. levothyroxine 50 mcg Oral tablet Take 25 mcg by mouth once daily. lisinopril 10 mg Oral tablet Take 10 mg by mouth once daily. MEDICAL MARIJUANA once daily. 3 grams per day morphine 15 mg Oral tablet Take 1-2 Tabs by mouth every three hours as needed for sev ere pain. 45 Tab 0 morphine 15 mg Oral tablet Take 1 Tab by mouth every four hours as needed for severe pain. 200 Tab 0 multivitamin Oral capsule Take 1 Cap by mouth once daily. polyethylene glycol 17 gram/dose Oral Powder Take 17 g by mouth once daily. 119 g senna-docusate 8.6-50 mg Oral tablet Take 1 Tab by mouth two times daily. warfarin 6 mg oral tablet Take 6 mg by mouth once daily. 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 The ROS was all negative except as reported above in the HPI. Physical Exam: General: WDWN male in NAD Vitals Filed Vitals: 03/13/2014 6:35 PM Height: 1.651 m (5' 5") Pain Score: 04/01 HEENT: NC/AT, PERRL, EOMI. Lymph: No cervical, supraclavicular, or inguinal adenopathy Chest: CTA bilaterally CV: RRR Abd: soft, NTND Ext: no edema; compression stockings in place Neuro: nonfocal, motor strength in toes 5/5 bilaterally, Hips with minimal movement and cam ited secondary to pain. LABORATORY: Lab Results Component Value Date NA 138 03/13/2014 K 3.8 03/13/2014 CL 105 03/13/2014 BICARB 27 03/13/2014 BUN 12 03/13/2014 CR 0.68 03/13/2014 GLU 106 03/13/2014 CA 7.9 03/13/2014 Lab Results Component Value Date WBC 8.58 03/13/2014 HB 10.4 03/13/2014 HCT 31.2 03/13/2014 PLT 171 03/13/2014 MCV 86.7 03/13/2014 RDW 43.7 03/13/2014 IMAGIN03/13/14 Bilateral hip x-ray FINDINGS: A new non-cemented right total hip arthroplasty has been placed which is in farrukh l alignment. The hardware is intact. No periprosthetic fracture is observed. The left total hip arthroplasty is in unchanged alignment with intact hardware. Bilateral sacroiliac joint and symphysis pubis ankylosis are present. IMPRESSION: Right total hip arthroplasty in normal alignment with no acute fracture. Stable left total hip arthroplasty. Findings compatible with ankylosing spondylitis PATHOLOGY: No relevant pathology related to active issue KARNOFSKY PERFORMANCE SCORE: 50% Requires considerable assistance and frequent medical care PAIN ASSESSMENT: 04/01 ASSESSMENT: 63 year old male with h/o severe osteoarthritis and with history of ankylosing spondylitis with complete spine involvment and bilateral hip involvement s/p left total hip arthroplasty 05/09/12 and post-op HO prophylaxis RT to 7 Gy x1. He returns after R total hip arthroplasty 03/12/14 to receive post-op HO prophylaxis RT to 7 Gy x1. His actual calculated dose received was 655 cGy after further evaluation. RECOMMENDATIONS: We held a detailed discussion with Cisneros regarding heterotopic ossification prophylactic radiation after right total hip arthroplasty. We recommend a single fraction of radiotherapy to a dose of 7Gy to the right hip to reduce the risk of heterotopic ossification. Ankylosis spondylitis places him at high risk to develop heterotopic ossification. The patient will b e simulated and treated today. The risks and benefits of radiotherapy [...] examined, and discussed with my attending, Dr. Raf Smith, who agr ees with this assessment and plan. KAREN JI MD CC: A copy of this note has been sent to the referring provider, Dr. Walker.Electronically si gned by Karen Ji MD at 03/14/2014 6:54 PM PDTMirly, Brittney Hodge RN - 03/13/2014 6:34 PM PDTNursing Note: Met with Jorge L Cisneros today. The patient is here today to be seen by Dr. Smith and Dr. Ji in consultation for consideration of radiotherapy options. The pt is alert and oriente d, and walks with a steady gait. Patient is accompanied by self. The purpose and flow of th e consult visit was reviewed with the patient. The pt's allergy list was reviewed and update d accordingly. The patient lives in [place], [place], and is currently inpatient at [facility]. Vital Signs per inpatient chart. 5 minutes were spent in face to face discussion and teaching during this encounter. documented in this en counter Plan of Treatment Not on filedocumented as of this encounter Visit Diagnoses + + | Diagnosis | + + | Heterotopic ossification of bone - Primary Other disorders of bone and cartilage | + + documented in this encounter
--- OUTSIDE RECORDS SUMMARY | ~2019-01-28 | XMS | Encounter Summary ---
Demographics + + + | Address | [address] | | | [place] [address] | + + + | Home Phone [...] Team Providers + +------+ + | Care Radiological Defense Officer Name | Role | Phone | [...] | 2010 | Visit | Oncology at [facility] | MD Jorge [address] | Dx) | | | | [address] | [address] [place], | | | | | Mailcode: [facility] | [place] [address] | | | | | [facility] | [phone] | | | | | and Zack, [facility] | | | | | | [place], [place] | | | | | | [address] | | | | | | [phone] | | | +--------+---------+ + + + [...] need for hip surgery. Was traveling to [facility] and back when had leg swel [...] Intact Psy: Appropriate Jorge Moore MD, FACP caisson worker, Pathology, and Pediatrics [facility] [place] documented in this encounter Plan of Treatment [...] Center, | | | | | | [place], [place]. | | | | + + + + + + + + | Specimen | + + | Blood - Blood | + + + + + | Narrative | Performed At | + + + | [facility]) | [place] | | [facility] [place] [address] | REGIONAL | | [place] [address] | LABORATORY | + + + + + + + + | Performing | Address | City/State/Zipcode | Phone Number | | Organization | | | | + + + + + | [facility] | [address] | [place] [address] | | | LABORATORY | | | [...] | + + + + + | [facility] DEPARTMENT OF | [address] | [place] [address] | | | PATHOLOGY | [address] [...] | [facility] | | obtained with the [employer] QUANTA Lite B2GP1 IgGMA TRIPP. B2GP1 | DEPARTMENT OF | | IgGMA values obtained with different electrician third's assay methods | PATHOLOGY | | may [...] | + + + + + | [facility] DEPARTMENT | [address] [facility] | [place] [address] | | | PATHOLOGY | [address] [...] | + + + + + | [facility] | [address] | [place] [address] | | | PATHOLOGY | [address] [...] | + + + + + | [facility] | [address] | [place] [address] | | | PATHOLOGY | [address] | | | + + + + + documented in this encounter Visit Diagnoses + + | Diagnosis | + + | Thrombosis - Primary Embolism and thrombosis of unspecified site | + + documented in this encounter"
--- OUTSIDE RECORDS SUMMARY | ~2019-01-28 | XMS | Encounter Summary ---
Demographics + + + | Address | [address] | | | [place] [address] | + + + | Home Phone [...] Providers + +------+ + | Care Senior Quality Control Technician Name | Role | Phone | [...] spondylitis (HCC) | | | | at [facility] 3rd Floor | | | | | | [address] | | | | | | [address] | | | | | | [place], [place] | | | | | | [address] | | | | | | [phone] | | | +--------+------+ + + + [...] + + + + | [facility] | [address] | [place] [address] | | | SERVICES, [facility] | [address] | | | + + + + + HEMOGLOBIN A1C, BLOOD (12/07/2013 9:31 AM PDT) + + + + + + | Component | Value | Ref Range | Performed | Pathologist | | | | | At | Signature | + + + + + + | HEMOGLOBIN | 6.9 (H)Comment: Hbg A1c | 4.3 - 5.6 % | [facility] | | | A1C | Interpretive [...] | + + + + + | [facility] | [address] | [place] [address] | | | SERVICES, SPECIAL | [address] [...] + | [place] [facility] | [address] | [place] [address] | | | [place] | | | [...] | | | LABORATORY | | | [place] | | | SERVICES, | | | [...] | + + + + + | [facility] | [address] | [place] [address] | | | SERVICES, CORE | [address] | | | + + + + + documented in this encounter Visit Diagnoses + + | Diagnosis | + + | Ankylosing spondylitis (HCC) Ankylosing spondylitis | + + documented in this encounter"
--- OUTSIDE RECORDS SUMMARY | ~2019-01-28 | XMS | Encounter Summary ---
Demographics + + + | Address | [address] | | | [place] [address] | + + + | Home Phone [...] Team Providers + +------+ + | Care Raimann Machine Operator Name | Role | Phone | + +------+ + | Gracie Mariano MD | PCP | Unavailable | + +------+ + Reason for Visit + + + | Reason | Comments | + + + | Pre-operative | TOTAL HIP ARTHROPLASTY on 07/12/2013 by Jorge Walker MD at [facility] | | evaluation | 6A | + + + Encounter Details +--------+---------+ + + + | Date | Type | Department | Care Team | Description | +--------+---------+ + + + | 06/29/ | Office | Preoperative | Angeline Arambula | Preop examination | | 2012 | Visit | Medicine Clinic at | R, MUTUEL CASHIER [address] [facility] | (Primary Dx); | | | | [facility] 4th Floor Day [facility] | Osteoarthrosis, hip; | | | | Stay [address] | [place], [place] | Ankylosing | | | | [address] | [address] | spondylitis ([facility]); | | | | Mailcode: UHN65 | [phone] | Hypertension; | | | | [facility] | | Diabetes mellitus | | | | [address] [facility] [place] | | ([facility]); | | | | [address] | | Antiphospholipid | | | | [phone] | | antibody syndrome | | | | | | ([facility]); Difficult | | | | | | [...] | | | Royal Walker MD at [facility] | | | | [...] If no growth, then no call ! [facility] wipe packet and instructions on proper [...] or walk. Surgery Check in Locations Admitting [facility], ninth floor [facility] Surgery Check in Time: The Preoperative [...] it is after office hours, call the [facility] waterworks pump station operator at [phone] and ask them to page him or h er. Preparing For Your Surgery Video -- 7 minutes of instructions! Access the [facility] website [email or web address] --> POPULAR RESOURCES [...] DM, HTN. Seen by Dr. Tijerina at [facility] on 03/02/2013 for this same procedure, but [...] Date RATE 68 03/10/2013 ATRIALRATE 68 03/10/2013 ID [id number] 03/10/2013 QRS 102 03/10/2013 QT 388 [...] further investigation and manageme nt. A. Acute [place] within 7 days: no B. Unstable angina/Recent [place] (7- 30 days): no C. Decompensated CHF: [...] yes Rate of cardiac , non fatal [place], non fatal cardiac arrest (RCRI) 0 risk factors - 0.4% 1 risk factors - 1%, 2 risk factors - 7%, 3 or >risk factors - 11% (may benefit from perioperative beta blockers) Risk Factor Recommendations: 1-2 risk factors- proceed with planned surgery with HR control or consider noninvasive testing if it will pattern changer Surgery Risk: Intermediate Patient-related risk: Estimated ASA class -- 3 ASSESSMENT and RECOMMENDATIONS: Surgical/anesthesia risk assessment: JorgeL Cisneros is a 62 y.o. male with [...] to this patient's care. ANGELINE ARAMBULA NP [facility] [address] [facility] [address] I counseled the patient regarding [...] [place] | [address] | [place], [place] | | | [facility] [place] | [address] | [address] | | | TESTS | | | [...] [facility] | [address] | [place] [address] | | | SERVICES, CORE | [address] [...] [facility] | [address] | [place] [address] | | | SERVICES, NAY | [address] [...] | | | LABORATORY | | | CROATIAN | | | SERVICES, | | | [...] | + + + + + | [facility] | [address] [facility] | [place] [address] | | | NAY KANG | [address] [...] [facility] | [address] | [place] [address] | | | SERVICES, | [address] [...] | + + + + + | [facility] | [address] | [place] [address] | | | SERVICES, | [address] [...] + | [place] [facility] | [address] | [place] [address] | | | [place] | | | | + + + [...] thigh | + + | Ankylosing spondylitis ([facility]) Ankylosing spondylitis | + + | Hypertension Unspecified essential hypertension | + + | Diabetes mellitus ([facility]) Type II or unspecified type diabetes mellitus without mention | | of complication, not stated as uncontrolled | + + | Antiphospholipid antibody syndrome (HCC) Primary hypercoagulable state | + + | Difficult intubation Other specified conditions influencing health status | + + documented in this encounter
--- OUTSIDE RECORDS SUMMARY | ~2019-01-28 | XMS | Encounter Summary ---
Demographics + + + | Address | [address] | | | [place] [address] | + + + | Home Phone [...] Team Providers + +------+ + | Care Plate Former Name | Role | Phone | [...] Description | +--------+---------+ + + + | 02/18/ | Surgery | 6A Intra Op [facility] | Pablito Barroso MD | EXTENSION OF FUSION | | 2018 | | [facility] | [address] | TO OCCIPUT C1 | | | | Admitting Desk | [place] | LAMINECTOMY | | | | Located on the | [address] | | | | | floor [address] [facility] | [phone] | | | | | [facility] | | | | | | [place], [place] | | | | | | [address] | | | +--------+---------+ + + + [...] be expected to seek care from your [place] care provider. If you do not have a primary care provider, we encourage you to estabs one immediately. 3. We will taper your opioid pain medication starting at the first clinic visit. 4. Not all patients will receive a refill of opioid medications. We will only prescribe re fills of opioids if we feel the medication is being use appropriately and is required for yo ur pain. We are only able to renew opioid prescriptions in a tule-ee-tlkp clinic visit. Our clinic sees patients on [...] week. Specialty: Family Medicine Why: follow up [facility] Contact information [facility] [address] [place] [address] Trauma Center at [facility]. Specialty: Trauma Center Why: As needed Contact information [facility] [facility] Mailcode: L223a [facility] [place] [address] [facility] [address] Additional information: The [facility] is the building just past [facility]. Turn ri ght immediately past the Pavilion. The entrance to garage B will be on your right just beyon d the main doors to the Pavilion. An elevator in the parking garage will take patients direc tly to the floor of the clinic. The Trauma Clinic is located on the 2nd floor, [address]. Pl ease check in at the front desk receptionist. Maps and directions can be found at [email or web address] Vitals on discharge: Ht 1.778 [...] I saw and examined Jose Rafael Cisneros ([id number]) with the residents on 02/22/2018 and agree with the assessment and plan as outlined in this discharge summary. Familia Early MD Opal Polisher Trauma, Critical Care & Acute Care Surgery [...] doctor if you can take an o dvd-pen-jrjikoj medicine. Follow your doctor's directions for returning [...] "Broken Neck: Care Instructions", log into your AVIcode account at [email or web address] :[email or web address]. You can enter [email or web address] in the "Touchbase" search box. Not on AVIcode? Review the AVIcode section of your After Visit Summary for directions on ho w to sign up. Current as of: November 10, 2016 Content Version: [id number] [employer]. Care instructions adapted under license by [facility] [employer] & [facility]. If you have questions about a medical condition or this instr uction, always ask your healthcare professional. [employer] disclaims any lakhwinder anty or liability for your use of this information. AttachmentsThe following attachments cannot be sent through Care Everywhere.Cervical Spinal Fusion: Post-op (Jordanian)DVT (Deep Vein Thrombosis) (Jordanian)documented in this encounter Medications at Time of [...] tablet by | 30 | 0 | 07 | | | oral tablet | mouth [...] off at this time FABIENNE PAIGE PA-C [facility] [address] [place] [address] Tino Swanson MD - 02/21/2018 11:51 AM [...] pain control, awaiting PT/OT. Tino Cortez MD [facility] [place] [address] [facility] [address] Associated attestation - Familia Early MD - 02/22/2018 10:10 AM PDTAttending: I saw and examined Jose Rafael Cisneros ([id number]) with the residents on 02/21/2018 and agree with the assessment and plan as outlined in this note and participated in the planning of care. Familia Early MD Opal Polisher Division of Trauma and Critical Care Erica Calderon PA - 02/21/2018 8:24 AM PDTFormatting of this note might be differe nt from the original. NEUROSURGERY INPATIENT PROGRESS NOTE Hospital Day:6 Author; ERICA CALDERON PA-C Attending Physician: Deandre Austin MD Interval [...] mm 0.00 General: 67 y/o male in [facility] Incision: C/D/I, no erythema-conrado present Neuro: Alert [...] -Will arrange outpatient FU ERICA CALDERON PA-C [facility] [address] [place] [address] Pg 37069 MEDICATIONS Current Facility-Administered Medications Medication acetaminophen (TYLENOL) [...] LMWH when INR is >2 [address] [phone] with any questions or concerns. Hugo Daniel M.D. Neurological Surgery Resident PGY-1 Pager: [phone] signed by Hugo Daniel MD at 02/20/2018 2:30 PM Tino Swanson MD - 02/20/2018 2:25 PM PDTFormatting of this note might be different from the orig inal. Trauma Acute Care - Progress Note Name: [...] neuro checks, pain control. Tino Cortez MD [facility] [facility] [address] Associated attestation - Munira Best MD,MPH - 02/20/2018 5:15 PM PDTI saw and evaluat ed the patient. I agree with the findings and the plan of care as documented in the residen t s note. Adjusting pain control up as the patient has acute on chronic pain. Further, cl eared for full dose anticoagulation initiation today (VTE) Munira Best MD, MPH cloth printing inspector Trauma, Critical Care & Acute Care Surgery [facility] [place] Jakob Portillo MD - 02/19/2018 10:20 AM [...] no lesions and no edema. Genitourinary Comments: Mo present yellow urine Neurological: He is alert [...] dose beginning the morning of 02/20. - Heme made aware by page APLA/History of DVT- [...] clarify with NSG. Endocrinology: T2DM- persistent hyperglcemia- 106-205 - diet resume this afternoon - back [...] my supervising physicians. Jakob Portillo, PGY-1 Surgery [address] Division of Trauma Department of Surgery Mail Code: L611 [address] [place] [address] Associated attestation - Munira Best MD,MPH - 02/19/2018 8:48 PM PDTTSICU ATTENDING M EDICAL DECISION MAKING I examined this patient with the ICU team. I have personally reviewed all pertinent labar otory findings, radiographs, and physiologic parameters. I personally performed pertinent p arts of the physical examination and personally formulated the plan with the TSICU team. Munira Best MD, MPH cloth printing inspector Trauma, Surgical Critical Care, & Acute Care Surgery [facility] Munira Fang MD - 02/19/2018 8:01 AM PDT Neurosurgery Progress Note Date: 02/19/2018 Admitting Physician: Deandre Austin MD HPI: Jose Rafael Cisneros is a 67 y.o. male admitted to [facility] for trauma Interval Update: OR yest Medications [...] Data Complete Blood Count/Coags Recent Labs 02/17/18 0031 02/18/18 0042 02/18/18 0912 02/18/18 1041 WBC 9.36 9.43 -- -- HB 12.6* 13.2* -- -- HCT 37.6* 38.9* 38.0* 38.2* PLT 192 218 -- -- Recent Labs 02/17/18 0031 02/18/18 0042 INRPT 1.07 1.19 Blood Gas Recent Labs 02/18/18 0912 02/18/18 1041 PH 7.36* 7.40 PCO2 46* 41 PO2 78 81 HCO3 26.0 25.4 [id number] 95.3 96.3 CSF Results No results for [...] Please contact the neurosurgery resident on-call pager [phone] with questions. Munira Moore MD Neurological Surgery PGY2 ona Fritz - 02/18/2018 6:18 PM PDTPost-Operative Neurological Exam [...] no lesions and no edema. Genitourinary Comments: Om present yellow urine Neurological: He is alert [...] my supervising physicians. Jakob Portillo, PGY-1 Surgery [address] Division of Trauma Department of Surgery Mail Code: L611 [address] [place] [address] Associated attestation - Aracelis Whittington MD - 02/21/2018 10:50 PM PDTICU Attending: I saw and examined Jose Rafael Cisneros ([id number]) with the residents on 02/18/18 and agree with t he assessment and plan as outlined in this note and participated in the planning of care. Unstable C2 fracture- OR today for fusion History of antiphospholipid antibody syndrome with DVT and stroke- will need to coordinate with neurological surgery and hematology regarding time frame for initiation of anticoagulat ion Aracelis Whittington MD FACS cloth printing inspector Division of Trauma, Critical Care & Acute Care Surgery Munira Fang MD - 02/18/2018 12:52 PM PDT Neurosurgery Progress Note Date: 02/18/2018 Admitting Physician: Deandre Austin MD HPI: Jose Rafael Cisneros is a 67 y.o. male admitted to [facility] for trauma Interval Update: NPO for OR Medications Scheduled Medication: [OCT Hold] acetaminophen 1,000 mg Q8H [OCT Hold] cholecalciferol (Vitamin D3) 2,000 Units DAILY [OCT Hold] folic acid 0.4 mg DAILY [OCT Hold] insulin glargine 15 Units HS [OCT Hold] insulin lispro 5 Units TID W/MEALS [OCT Hold] insulin lispro QID [OCT Hold] levothyroxine 50 mcg DAILY [OCT Hold] multivitamin 1 tablet DAILY [OCT Hold] polyethylene glycol 17 g QPM [OCT Hold] senna 2 tablet BID PRN Medication: [OCT Hold] bacitracin-polymyxin B 1 g PRN [OCT Hold] bisacodyl 10 mg DAILY PRN dextrose 5%-NaCl 0.45% 5-400 mL PRN dextrose 50 % in water 15-150 mL PRN [OCT Hold] dextrose 50 % in water 25 mL [...] 41 PO2 78 81 HCO3 26.0 25.4 H5FMMXAU 95.3 96.3 CSF Results No results for [...] Please contact the neurosurgery resident on-call pager [phone] with questions. Munira Moore MD Neurological Surgery PGY2 azuMunira Mayo MD - 02/17/2018 9:54 AM PDT . Neurosurgery Progress Note Date: 02/17/2018 Admitting Physician: Deandre Austin MD HPI: Jose Rafael Cisneros is a 67 y.o. male admitted to [facility] for trauma Interval Update: NPO for OR [...] Data Complete Blood Count/Coags Recent Labs 02/16/18 0052 02/17/18 0031 WBC 12.85* 9.36 HB 13.1* 12.6* HCT 38.7* 37.6* PLT 217 192 Recent Labs 02/15/18 1533 02/17/18 0031 INRPT 1.46* 1.07 Blood Gas No results for input(s): FIO2, PH, PCO2, PO2, HCO3, QCGYE6RLR, B3XNLOLV, P2QCVOZIJ in the l ast 720 hours. CSF Results No results for input(s): WBCCSF, RBCCSF, GLUCOSECSF, PROTEINCSF in the last 720 hours. Chemistry Recent Labs 02/16/185102/17/18 0031 02/17/18 0705 NA 136 -- 138 -- K [...] Please contact the neurosurgery resident on-call pager [phone] with questions. Munira Moore MD Neurological Surgery PGY2 Vandana Escobedo PA-C - 02/17/2018 7:29 AM PDT . [...] Intake/Output Summary (Last 24 hours) at 02/17/18 0729 Last data filed at 02/17/18 0705 Gross [...] no lesions and no edema. Genitourinary Comments: Mo present yellow urine Neurological: He is alert [...] Department of Surgery Mail Code: L611 [address] [place] [address] Associated attestation - Aracelis Whittington MD - 02/19/2018 10:54 PM PDTICU Attending: I saw and examined Jose Rafael Cisneros ([id number]) with Vandana Lora PA-C on 02/17/18 and [...] after spine surgery. Aracelis Whittington MD FACS pens and pencils dipper Division of Trauma, Critical Care & Acute Care Surgery Jakob Portillo MD - 02/16/2018 3:38 PM PDTPer neurosurgery, case canceled today due to OR availability. Diabetic diet started. NPO at midnight for OR 02/17. Jakob Portillo, PGY-1 Surgery [address] amie Parra MD - 0 02/16/2018 11:34 AM PDTNeurosurgery [...] on xarelto Jamie Parra MD Neurosurgery PGY1 92848 Jakob mullen MD - 0 02/16/2018 9:25 [...] to have plan [place] [facility] [place] prophy sooner? Infectious Diseases: No acute concerns Leukocytosis: [...] Department of Surgery Mail Code: L611 [address] [place] [address] Associated attestation - Aracelis Whittington MD - 02/17/2018 4:00 PM PDTAttending: I saw and examined Jose Rafael Cisneros ([id number]) with the residents on 02/16/18 and agree with t he assessment and plan as outlined in this note and participated in the planning of care. Aracelis Whittington MD FACS pens and pencils dipper Division of Trauma, Critical Care & Acute Care Surgery Munira Fang MD - 02/16/2018 5:00 AM PDT Neurosurgery Progress Note Date: 02/16/2018 Author: MUNIRA JACKSON MD Admitting Physician: Deandre Austin MD HPI: Jose Rafael Cisneros is a 67 y.o. male admitted to [facility] for trauma Interval Update: NPO for OR [...] for input(s): FIO2, PH, PCO2, PO2, HCO3, YDDUW9ZWH, B7TQHQWX, S2SEPYVGO in the l ast 720 hours. CSF [...] Please contact the neurosurgery resident on-call pager [phone] with questions. Munira Moore MD Neurological Surgery [...] [facility] | [address] | [place], [place] | | | JOI [facility] | [address] | [address] | | | TESTS | | | [...] + + + | [facility] | [address] | [place], [place] | | | [facility] | [address] | [address] | | | TESTS | | | [...] + + + + | [facility] | [address] | [place] [address] | | | NAY KANG | GENNARO [...] ELLIE | [address] | [place], [place] | | | [facility] CARE | [facility] | [address] | | | TESTS | | | [...] (H) | 70 - 99 mg/dL | [facility] - | | | GLUCOSE, [...] ARGUETA | [address] | [place], [place] | | | [facility] | [address] | [address] | | | TESTS | | | [...] ELLIE | [address] | [place], [place] | | | BABAR [facility] | [address] | [address] | | | TESTS | | | [...] ELLIE | [address] | [place], [place] | | | [facility]ARE | [facility] | [address] | | | TESTS | | | [...] (H) | 70 - 99 mg/dL | [facility] - | | | GLUCOSE, [...] ARGUETA | [address] | [place], [place] | | | [facility]ARE | [facility] | [address] | | | TESTS | | | [...] + + + + | [facility] | [address] | [place] [address] | | | NAY KANG | PARK [...] MARQUAM | [address] | [place], [place] | | | [facility]ARE | [address] | [address] | | | TESTS | | | [...] (H) | 70 - 99 mg/dL | [facility] - | | | GLUCOSE, [...] MARQUAM | [address] | [place], [place] | | | [facility] | [address] | [address] | | | TESTS | | | [...] ARGUETA | [address] | [place], [place] | | | BABAR T[facility] OF TIM[facility] | [facility] | [address] | | | TESTS | | | [...] [facility] | [address] | [place] [address] | | | SERVICES, NAY | [address] | | | + + + + + US SOFT TISSUE HEAD & NECK (02/20/2018 1:09 PM PDT) + + | Specimen | + + | | + + + + + | Narrative | Performed At | + + + | EXAM: US THYROID. HISTORY: Thyroid ultrasound for mass seen on | [facility] | | CT scan. COMPARISON: CTA neck [...] MARQUAM | [address] | [place], [place] | | | [facility] | [address] | [address] | | | TESTS | | | [...] ARGUETA | [address] | [place], [place] | | | [facility]I [facility] | [address] | [address] | | | TESTS | | | [...] MARQUAM | [address] | [place], [place] | | | [facility]AB[facility] OF CARE | [facility] | [address] | | | TESTS | | | [...] - MARQUAM | [address] | [place], [place] | | | JOI [facility] | [address] | [address] | | | TESTS | | | [...] | + + + + + | [facility] | [address] | [place] [address] | | | SERVICES, NAY | PARK [...] MARQUAM | [address] | [place], [place] | | | [facility]ARE | [address] | [address] | | | TESTS | | | [...] BARRYAM | [address] | [place], [place] | | | JOI [facility] | [address] | [address] | | | TESTS | | | [...] + + + | [facility] | [address] | [place], [place] | | | [facility] | [address] | [address] | | | TESTS | | | [...] Note | + + | Service Account, [employer] - 02/18/2018 3:50 PM PDT [...] Attending | | Surgeon: Pablito Barroso MD Operation Specialist(s): All López MD, | | PhD Preoperative [...] None.Complications: | | None.Drains: Subfascial Hemovac and Mo.Disposition: PACU, Trauma ICU.Findings: | | Excellent placement of hardware, C1 released, no change in neuromonitoring signals. | | [place] to skin, nylon to drain.Indication For Procedure: Mr. Cisneros is a 67-year-old | | gentleman with ankylosing spondylitis and history of fusion. He has a history of prior | | C3-T2 posterior instrumented fusion in 2006 after a C7 fracture. He presented to [facility] | | via Trauma having fallen in [...] These were then final tightened using the pharmacy intake technician instrumentation. | | The area was thoroughly [...] 02/18/2018 12:36:03DT: 02/18/2018 13:17:58Job #: | | [id number] | |KG/MODL | | | | | | /[id number] | + + CAPILLARY BLOOD GLUCOSE (NO CHG), POC (02/18/2018 12:48 PM PDT) + +---------+ + + + | Component | Value | Ref Range | Performed | Pathologist | | | | | At | Signature | + +---------+ + + + | BLOOD | 153 (H) | 70 - 99 mg/dL | [facility] - | [...] + + | [facility] | [address] | [place], [place] | | | BABAR T[facility] OF [facility] | [facility] | [address] | | | TESTS | | | [...] Complications: none Drains: Subfascial | | | ariel LARSEN Disposition: PACU TICU Findings: excellent | | [...] - | | + + + ABG-FULL ABL, POC (02/18/2018 10:41 AM PDT) + + [...] ARGUETA | [address] | [place], [place] | | | [facility] | [address] | [address] | | | TESTS | | | [...] MARQUAM | [address] | [place], [place] | | | JOI PO[facility]ARE | [address] | [address] | | | TESTS | | | [...] ARGUETA | [address] | [place], [place] | | | JOI [facility] | [address] | [address] | | | TESTS | | | [...] ELLIE | [address] | [place], [place] | | | [facility] | [address] | [address] | | | TESTS | | | [...] ranges for full anticoagulation: INR for | [facility] | | Venous Thromboembolism (2.0 - 3.0) INR INR | LABORATORY | | for most patients with mech. valves (2.5 - 3.5) INR | NAY KANG | + + + + + + + + | Performing | Address | City/State/Zipcode | Phone Number | | Organization | | | | + + + + + | [facility] | [address] | [place] [address] | | | SERVICES, NAY | [address] [...] + + | [facility] | [address] | [place] [address] | | | NAY KANG | [address] [...] + + + + | [facility] | [address] | [place] [address] | | | NAY KANG | PARK [...] | | | LABORATORY | | | NAURUAN | | | SERVICES, | | | [...] | + + + + + | [facility] | [address] | [place] [address] | | | SERVICES, CORE | [address] | | | + + + + + INTRAOPERATIVE NEURO MONITORING (02/18/2018) + + + | Narrative | Performed At | + + + | Patient Name: Jose Rafael Cisneros Date of : 1950 | | | Date of Test: 02/18/2018 Place | | | of Service: IP Intra Op (40) [id number] - [id number] INTRAOPERATIVE | | | NEURO MONITORING IOM: [...] min(s), with modifier GY | | | 68017 - Short Latency EP's Upper AND Lower extremities 01180 - | | | Central Motor EP's Upper AND Lower extremities 20402 - EEG in Sleep | | | [...] MARQUAM | [address] | [place], [place] | | | BABAR [facility] OF CARE | [facility] | [address] | | | TESTS | | | [...] (H) | 70 - 99 mg/dL | [facility] - | | | GLUCOSE, [...] MARQUAM | [address] | [place], [place] | | | [facility] | [address] | [address] | | | TESTS | | | [...] ARGUETA | [address] | [place], [place] | | | BABAR TAMEZ OF CARE | [facility] | [address] | | | TESTS | | | [...] BARRYAM | [address] | [place], [place] | | | BABAR TAMEZ OF TIMUR | [facility] | [address] | | | TESTS | | | [...] (H) | 70 - 99 mg/dL | [facility] - | | | GLUCOSE, [...] ELLIE | [address] | [place], [place] | | | [facility] | [address] | [address] | | | TESTS | | | [...] [facility] | [address] | [place] [address] | | | SERVICES, CORE | [address] [...] | + + + + + | [facility] | [address] | [place] [address] | | | SERVICES, CORE | [address] [...] + + | [facility] | [address] | [place] [address] | | | SERVICES, CORE | PARK [...] | | | LABORATORY | | | NAURUAN | | | SERVICES, | | | [...] + + + + | [facility] | [address] | [place] [address] | | | NAY KANG | [address] [...] (H) | 70 - 99 mg/dL | [facility] - | | | GLUCOSE, [...] MARQUAM | [address] | [place], [place] | | | [facility] | [address] | [address] | | | TESTS | | | [...] ARGUETA | [address] | [place], [place] | | | BABAR TAMEZ OF TIMUR | [facility] | [address] | | | TESTS | | | [...] | [facility] | [address] | [place], [place] | | | CARDIOLOGY | [address] | [address] | | + + + + + [...] B[facility] | [address] | [place], [place] | | | JOI POINT OF CARE | [address] | [address] | | | TESTS | | | [...] ARGUETA | [address] | [place], [place] | | | BABAR TAMEZ OF [facility] | [address] | [address] | | | TESTS | | | [...] [facility] | [address] | [place] [address] | | | NAY KANG | [address] [...] + + + + | [facility] | [address] | [place] [address] | | | SERVICES, CORE | [address] | | | + + + + + MAGNESIUM, PLASMA (02/16/2018 12:52 AM PDT) + +-------+ + + + | Component | Value | Ref Range | Performed | Pathologist | | | | | At | Signature | + +-------+ + + + | MAGNESIUM,P | 2.5 | 1.6 - 2.6 mg/dL | [facility] | | | LASMA [...] [facility] | [address] | [place] [address] | | | SERVICES, NAY | [address] [...] | | | LABORATORY | | | NAURUAN | | | SERVICES, | | | [...] | + + + + + | [facility] | [address] | [place] [address] | | | SERVICES, CORE | [address] [...] + + + + | [facility] | [address] | [place] [address] | | | SERVICES, CORE | [address] [...] | + + + + + | [employer] [facility] | [address] | [place] [address] | | | SERVICES, CORE | [address] [...] MARQUAM | [address] | [place], [place] | | | BABAR TAMEZ OF CARE | [address] | [address] | | | TESTS | | | [...] [facility] | [address] | [place] [address] | | | SERVICES, CORE | [address] [...] [facility] | [address] | [place] [address] | | | SERVICES, | [address] [...] [facility] | [address] | [place] [address] | | | SERVICES, | [address] [...] ARGUETA | [address] | [place], [place] | | | JOI POINT OF CARE | [address] | [address] | | | TESTS | | | [...] report as now presented. Final signature: Pee Medina, | | | 02/15/2018 4:56 PM Preliminary: [...] Note | + + | Service Account, [employer] - 02/15/2018 4:57 PM PDT [...] | | POC | | ng/mL | ELLIE | | | | | [...] AR[facility]ETA | [address] | [place], [place] | | | BABAR T[facility] OF [facility] | [address] | [address] | | | TESTS | | | | + + + + + ED BG-LACPOC (02/15/2018 3:38 PM PDT) + + + [...] | | | TEMP | | | MARYAMILETAM | | | [...] ARGUETA | [address] | [place], [place] | | | BABAR TAMEZ OF CARE | [facility] | [address] | | | TESTS | | | [...] + + | [facility] | [address] | [place] [address] | | | PEARL, NAY | [address] [...] | + + + + + | [facility] | [address] | [place] [address] | | | SERVICES, CORE | [address] [...] | + + + + + | [facility] | [address] | [place] [address] | | | SERVICES, NAY | [address] [...] | + + + + + | [facility] | [address] | [place] [address] | | | SERVICES, CORE | [address] [...] SPECIMEN | Sample received with | | [facility] | | | COLLECTED, | adeq label/volume [...] | + + + + + | [facility] | [address] | [place] [address] | | | SERVICES, | [address] [...] MCHC, PLT, IG% and IG# effective | [facility] | | 12/30/2017 Must be ordered if Coagulopathy Panel is ordered | LABORATORY | | | [place] | + + + + + + + + | Performing | Address | City/State/Zipcode | Phone Number | | Organization | | | | + + + + + | [facility] | [address] | [place] [address] | | | NAY KANG | [place]ENN[place] [...] | | | LABORATORY | | | NAURUAN | | | SERVICES, | | | [...] | + + + + + | [facility] | [address] | [place] [address] | | | SERVICES, CORE | [address]ENN[address] [...] | + + + + + | [facility] | [address] | [place] [address] | | | SERVICES, CORE | [address] | | | + + + + + PLATELET MAPPING, POC (02/15/2018) + + + + + + | Component | Value | Ref Range | Performed | Pathologist | | | | | At | Signature | + + + + + + | R - | 6.3 | 5 - 10 Minutes | [facility] - | | | CITRATED | | | ELLIE | | | [...] | | AMPLITUDE - | | | MARJIMMIE | | | CITRATED | | | BABAR TAMEZ | | | | | | OF CARE | | | | | | TESTS | | + + + + + + | LY 30 | 0.5 | 0 - 8 % | [facility] - | | | | | | MARJIMMIE | | | | | | BABAR [facility]AME[facility] | | | | | | OF CARE | | | | | | TESTS | | + + + + + + | CLOT INDEX | 1.9 | -3 - 3 | [facility] - | | | | | | ELLIE | | | | | | BABAR TAMEZ | | | | | | OF CARE | | | | | | TESTS | | + + + + + + | % | 17 | | [facility] - | | | INHIBITION | | | [place] | | | (AA) | | | BABAR TAMEZ | | | | | | OF CARE | | | | | | TESTS | | + + + + + + | % | 54.2 | | [facility] - | | | INHIBITION | | | [place] | | | (ADP) | | | [...] + + + | [facility] | [address] | [place], [place] | | | [facility] | [address] | [address] | | | TESTS | | | [...] +---+---+ | | | +---+---+ + +-------+ +-------+---+ + | bupivacaine-EPINEPHrine | Given | 02/19/20 | 20 mL | | Surgical | | (MARCAINE-EPINEPHRINE) 0.25 | | 18 9:21 | | | Site | | %-1:200,000 injection | | AM PDT | | | | | INTRAPROCEDURE PRN, Starting Fri | | | | | | | 02/18/18 at 0921, Until Fri | | | | | | | 02/18/18 at 1236 | | | | | | + +-------+ +-------+---+ + +---+---+ | | | +---+---+ + +-------+ +--------+---+---+ | cholecalciferol (Vitamin D3) | Given | 02/23/20 | 2,000 | | | | (VITAMIN D-3) tablet 2,000 Units | | 18 8:01 | Units | | | | 2,000 Units, oral, DAILY, First | | AM PDT | | | | | dose on Wed02/17/18 at 0900, | | | | | [...] mL, intravenous, NEEDED, | | | Starting Tu02/15/18 at 1753, | | | Until Wed02/23/18 at 0250, CBG | | | less [...] | | | | First dose on 02/20/18 at | | PM PDT | | [...] mg, intramuscular, | | | NEEDED, Starting 02/15/18 at | | | 1753, Until Wed02/23/18 at 0250, | | | CBG less than 70 mg/dL per Adult | | | Hypoglycemia Protocol | | + +---+ | | | + +---+ | glucose chewable tablet 16 g | | | 16 g, oral, NEEDED, Starting | | | 02/15/18 at 1753, Until Wed | | | [...] | | | EVENING, First dose on Tue | | PM PDT | | [...] +---+---+ | | | +---+---+ + +-------+ +--------+---+ + | thrombin 5000 unit topical | Given | 02/19/20 | 5,000 | | Surgical | | solution INTRAPROCEDURE PRN, | | 18 9:32 | Units | | Site | | Starting Wed02/18/18 at 0932, | | AM PDT | | | | | Until Wed02/18/18 at 1236 | | | | | | + +-------+ +--------+---+ + +---+---+ | | | +---+---+ documented in this encounter
--- OUTSIDE RECORDS SUMMARY | ~2019-01-28 | XMS | Encounter Summary ---
Demographics + + + | Address | [address] | | | [place] [address] | + + + | Home Phone [...] Providers + +------+ + | Care Storm Window Installer Name | Role | Phone | + [...] | | 2013 | Visit | at [facility] [address] | [address] | ossification | | | | [address] | [place], | (Primary Dx) | | | | Meliza Ibarra | [place] [address] | | | | | [place], | [phone] | | | | | [place] [address] | | | | | | [phone] | | | +--------+---------+ + + + [...]
--- OUTSIDE RECORDS SUMMARY | ~2019-01-28 | XMS | Encounter Summary ---
Demographics + + + | Address | [address] | | | [place] [address] | + + + | Home Phone [...] Team Providers + +------+ + | Care Dural Mechanic Name | Role | Phone | [...] Anna | | | | | | [facility] | | | | | | [place], [place] | | | | | | [address] | | | +--------+ + + + [...]
--- OUTSIDE RECORDS SUMMARY | ~2019-01-28 | XMS | Encounter Summary ---
Demographics + + + | Address | [address] | | | [place] [address] | + + + | Home Phone [...] Team Providers + +------+ + | Care Veterinary Technology Instructor Name | Role | Phone | [...] [address] | | | | | [facility] | [place] [address] | | | | | [address] | [phone] | | | | | Mailcode: OC2 | | | | | | [facility] | | | | | | and [address], | | | | | | [address] | | | | | | [place], [place] | | | | | | [address] | | | | | | [phone] | | | +--------+ + + + [...]
--- OUTSIDE RECORDS SUMMARY | ~2019-01-28 | XMS | Encounter Summary ---
Demographics + + + | Address | [address] | | | [place] [address] | + + + | Home Phone [...] Providers + +------+ + | Care Associate Juvenile Court Judge Name | Role | Phone | + [...] Taj | | | | | | [address] | | | | | | Mailcode: [id number] | | | | | | [place] | | | | | | [place], [place] | | | | | | [address] | | | | | | [phone] | | | +--------+ + + + [...] | + +---------+ + + | [facility] DEPARTMENT OF | | | | | RADIOLOGY | | | | + +---------+ + + documented in this encounter Visit Diagnoses + + | Diagnosis | + + | Hip pain Pain in joint, pelvic region and thigh | + + documented in this encounter"
--- OUTSIDE RECORDS SUMMARY | ~2019-01-28 | XMS | Encounter Summary ---
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
--- OUTSIDE RECORDS SUMMARY | ~2019-01-28 | XMS | Encounter Summary ---
Demographics + + + | Address | [address] | | | [place] [address] | + + + | Home Phone [...] Team Providers + +------+ + | Care Poultry Dressing Worker Name | Role | Phone | [...] Taj | | | | | at [facility] | [facility] | | | | | [address] | [place] [address] | | | | | [facility] | | | | | | Mailcode: [id number] Taj | | | | | | [place] [address] | | | | | | [facility], | | | | | | [place] [address] | | | | | | [phone] | | | +--------+ + + + [...] CRABTREE | | | | | | ([id number]) on 03/04/2013 | | | | | | 7:58:54 AM | | | | + + + + + + + + | Specimen | + + | | + + + + + | Narrative | Performed At | + + + | Please click | [facility] | | on view image for the detailed interpretation from [employer] results. | CARDIOLOGY | + + + + + | Procedure Note | + + | Interface, Cardiology Results - 03/04/2013 8:00 AM PDT Please click on view image | | for the detailed interpretation from [employer] results. | + + + + + + + | Performing | Address | City/State/Zipcode | Phone Number | | Organization | | | | + + + + + | [facility] | [address] | [place], [place] | | | CARDIOLOGY | [facility] | [address] | | + + + + + documented in this encounter Visit Diagnoses Not on filedocumented in this encounter"
--- OUTSIDE RECORDS SUMMARY | ~2019-01-28 | XMS | Encounter Summary ---
Demographics + + + | Address | [address] | | | [place] [address] | + + + | Home Phone [...] Providers + +------+ + | Care Cement Paver Name | Role | Phone | + +------+ + | Gracie Mariano MD | PCP | Unavailable | + +------+ + Encounter Details +--------+ + + + + | Date | Type | Department | Care Team | Description | +--------+ + + + + | 11/28/ | Documentati | Orthopaedics at | Linnea Calvo PA | | | 2016 | on | [facility] [address] | [address] | | | | | Ave Mailcode: CH12A | [place], [place] | | | | | [facility] | [address] | | | | | and | [phone] | | | | | Floor [place], [place] | | | | | | [address] | | | | | | [phone] | | | +--------+ + + + [...]
--- OUTSIDE RECORDS SUMMARY | ~2019-01-28 | XMS | Encounter Summary ---
Demographics + + + | Address | [address] | | | [place] [address] | + + + | Home Phone [...] Team Providers + +------+ + | Care Grain Picker Name | Role | Phone | [...] OF FUSION | | 2018 | | [facility] | [address] | TO OCCIPUT C1 | | | | Admitting Desk | [place], [place] | LAMINECTOMY | | | | Located on the | [address] | | | | | floor [address] [facility] | [phone] | | | | | [facility] | | | | | | [place], [place] | | | | | | [address] | | | +--------+---------+ + + + [...] be expected to seek care from your [facility] care provider. If you do not have [...] able to renew opioid prescriptions in a tolq-sw-jwbo clinic visit. Our clinic sees patients on [...] week. Specialty: Family Medicine Why: follow up [facility] Contact information [facility] [address] [place] [id number] Trauma Center at [facility]. Specialty: Trauma Center Why: As needed Contact information [facility] [address] [facility] Mailcode: L223a [facility] [address] [facility] [address] Additional information: The [facility] is the building just past [facility]. Turn ri ght immediately past the Pavilion. The entrance to garage B will be on your right just beyon d the main doors to the Pavilion. An elevator in the parking garage will take patients direc tly to the floor of the clinic. The Trauma Clinic is located on the 2nd floor, [address]. Pl ease check in at the front tender. Maps and directions can be found at [email or web address] Vitals on discharge: Ht 1.778 m (5' 10"), Wt 114.5 kg (252 lb 6.8 oz), BP 167/52, Pulse 69, Temperature 36.6 C (97.9 F), RR 16, SpO2 100%, BMI 36.22 kg/(m^2). Outstanding labs/studies: None Discharging Physician: David Anderson MD Attending Physician: Deandre Austin MD Associated attestation - Familia Early MD - 02/23/2018 9:15 AM PDTAttending: I saw and examined Jose Rafael Cisneros ([id number]) with the residents on 02/22/2018 and agree with the assessment and plan as outlined in this discharge summary. Familia Early MD Sleeve Maker Trauma, Critical Care & Acute Care Surgery [...] doctor if you can take an o vxp-gxx-ygphrdy medicine. Follow your doctor's directions for returning [...] "Broken Neck: Care Instructions", log into your Duxter account at [email or web address] :[email or web address]. You can enter U000 in the "[employer]" search box. Not on Duxter? Review the Duxter section of your After Visit Summary for directions on ho w to sign up. Current as of: November 10, 2016 Content Version: [id number] [employer]. Care instructions adapted under license by [facility] [employer] & [facility]. If you have questions about a medical condition or this instr uction, always ask your healthcare professional. [employer] disclaims any lakhwinder anty or liability for your use of this information. AttachmentsThe following attachments cannot be sent through Care Everywhere.Cervical Spinal Fusion: Post-op (Somali)DVT (Deep Vein Thrombosis) (Somali)documented in this encounter Medications at Time of [...] off at this time FABIENNE PAIGE PA-C [facility] [address] [place] [address] Tino Swanson MD - 02/21/2018 11:51 AM [...] awaiting PT/OT. Tino Cortez MD [facility] [place] [address] [facility] [address] Associated attestation - Familia Early MD - 02/22/2018 10:10 AM PDTAttending: I saw and examined Jose Rafael Cisneros ([id number]) with the residents on 02/21/2018 and agree with the assessment and plan as outlined in this note and participated in the planning of care. Familia Early MD Sleeve Maker Division of Trauma and Critical Care Erica [...] mm 0.00 General: 67 y/o male in [facility] Incision: C/D/I, no erythema-conrado present Neuro: Alert [...] -Will arrange outpatient FU ERICA CALDERON PA-C [facility] [address] [place] [address] Pg [phone] MEDICATIONS Current Facility-Administered Medications Medication acetaminophen (TYLENOL) [...] LMWH when INR is >2 Please page [phone] with any questions or concerns. Hugo Daniel M.D. Neurological Surgery Resident PGY-1 Pager: [phone] signed by Hugo Daniel MD at 02/20/2018 [...] samson care, Q4H neuro checks, pain control. Tion Cortez MD [facility] [address] [facility] [address] Associated attestation - Munira Best MD,MPH - 02/20/2018 5:15 PM PDTI saw and evaluat ed the patient. I agree with the findings and the plan of care as documented in the residen t s note. Adjusting pain control up as the patient has acute on chronic pain. Further, cl eared for full dose anticoagulation initiation today (VTE) Munira Best MD, MPH retail delivery driver Trauma, Critical Care & Acute Care Surgery [facility] Jakob Portillo MD - 02/19/2018 10:20 AM [...] my supervising physicians. Jakob Portillo, PGY-1 Surgery 87117 Division of Trauma Department of Surgery Mail Code: L611 [address] [place] [address] Associated attestation - Munira Best MD,MPH - 02/19/2018 8:48 PM PDTTSICU ATTENDING M EDICAL DECISION MAKING I examined this patient with the ICU team. I have personally reviewed all pertinent labar otory findings, radiographs, and physiologic parameters. I personally performed pertinent p arts of the physical examination and personally formulated the plan with the TSICU team. Munira Best MD, MPH retail delivery driver Trauma, Surgical Critical Care, & Acute Care Surgery [facility] Munira Fang MD - 02/19/2018 8:01 AM PDT Neurosurgery Progress Note Date: 02/19/2018 Admitting Physician: Deandre Austin MD HPI: Jose Rafael Cisneros is a 67 y.o. male admitted to [facility] for trauma Interval Update: OR [...] 41 PO2 78 81 HCO3 26.0 25.4 P3MGEGPO 95.3 96.3 CSF Results No results for [...] Please contact the neurosurgery resident on-call pager [phone] with questions. Munira Moore MD Neurological Surgery [...] my supervising physicians. Jakob Portillo, PGY-1 Surgery 16[address] Division of Trauma Department of Surgery Mail Code: L611 [address] [place] [address] Associated attestation - Aracelis Whittington MD - 02/21/2018 10:50 PM PDTICU Attending: I saw and examined Jose Rafael Cisneros ([id number]) with the residents on 02/18/18 and agree with t he assessment and plan as outlined in this note and participated in the planning of care. Unstable C2 fracture- OR today for fusion History of antiphospholipid antibody syndrome with DVT and stroke- will need to coordinate with neurological surgery and hematology regarding time frame for initiation of anticoagulat ion Aracelis Whittington MD FACS retail delivery driver Division of Trauma, Critical Care & Acute Care Surgery Munira Fang MD - 02/18/2018 12:52 PM PDT Neurosurgery Progress Note Date: 02/18/2018 Admitting Physician: Deandre Austin MD HPI: Jose Rafael Cisneros is a 67 y.o. male admitted to [facility] for trauma Interval Update: NPO [...] 41 PO2 78 81 HCO3 26.0 25.4 U3WQRVKO 95.3 96.3 CSF Results No results for [...] Please contact the neurosurgery resident on-call pager [phone] with questions. Munira Moore MD Neurological Surgery PGY2 azuMunira Mayo MD - 02/17/2018 9:54 AM PDT . Neurosurgery Progress Note Date: 02/17/2018 Admitting Physician: Deandre Austin MD HPI: Jose Rafael Cisneros is a 67 y.o. male admitted to [facility] for trauma Interval Update: NPO [...] for input(s): FIO2, PH, PCO2, PO2, HCO3, OFWWC0USJ, U1TWCASS, V3THZRCBE in the l ast 720 hours. CSF [...] Please contact the neurosurgery resident on-call pager [phone] with questions. Munira Moore MD Neurological Surgery [...] in conjunction with my supervising physicians. Vandana Lroa PA-C Division of Trauma Department of Surgery Mail Code: L611 [address] [place] [address] Associated attestation - Aracelis Whittington MD - 02/19/2018 10:54 PM PDTICU Attending: I saw and examined Jose Rafael Cisneros ([id number]) with Vandana Lora PA-C on 02/17/18 and [...] after spine surgery. Aracelis Whittington MD FACS rn clinical trials Division of Trauma, Critical Care & Acute Care Surgery Jakob Portillo MD - 02/16/2018 3:38 PM PDTPer neurosurgery, case canceled today due to OR availability. Diabetic diet started. NPO at midnight for OR 02/17. Jakob Portillo, PGY-1 Surgery [address] amie Parra MD - 0 02/16/2018 11:34 [...] on xarelto Jamie Parra MD Neurosurgery PGY1 46713 Jakob mullen MD - 0 02/16/2018 9:25 [...] plan for [place] [facility]. prophy sooner? Infectious Diseases: No acute concerns [...] Department of Surgery Mail Code: L611 [address] [place] [address] Associated attestation - Aracelis Whittington MD - 02/17/2018 4:00 PM PDTAttending: I saw and examined Jose Rafael Cisneros ([id number]) with the residents on 02/16/18 and agree with t he assessment and plan as outlined in this note and participated in the planning of care. Aracelis Whittington MD FACS rn clinical trials Division of Trauma, Critical Care & Acute Care Surgery Munira Fang MD - 02/16/2018 5:00 AM PDT Neurosurgery Progress Note Date: 02/16/2018 Author: MUNIRA JACKSON MD Admitting Physician: Deandre Austin MD HPI: Jose Rafael Cisneros is a 67 y.o. male admitted to [facility] for trauma Interval Update: NPO [...] for input(s): FIO2, PH, PCO2, PO2, HCO3, ZLMJS0EXB, V6FWLPQI, X2YWEVJJC in the l ast 720 hours. CSF [...] Please contact the neurosurgery resident on-call pager [phone] with questions. Munira Moore MD Neurological Surgery [...] AR[facility]ETA | [address] | [place], [place] | | | JOI [facility]RA[facility] | [address] | [address] | | | TESTS | | | [...] + + + | [facility] | [address] | [place], [place] | | | [facility] | [address] | [address] | | | TESTS | | | [...] | + + + + + | [facility] | [address] | [place] [address] | | | NAY KANG | GENNARO [...] ELLIE | [address] | [place], [place] | | | BABAR TAMEZ OF CARE | [facility] | [address] | | | TESTS | | | [...] (H) | 70 - 99 mg/dL | [facility] - | | | GLUCOSE, [...] ARGUETA | [address] | [place], [place] | | | JOI POINT OF CARE | [address] | [address] | | | TESTS | | | [...] ELLIE | [address] | [place], [place] | | | BABAR TAMEZ OF [facility] | [address] | [address] | | | TESTS | | | [...] ELLIE | [address] | [place], [place] | | | BABAR TAMEZ OF CARE | [facility] | [address] | | | TESTS | | | [...] (H) | 70 - 99 mg/dL | [facility] - | | | GLUCOSE, [...] ARGUETA | [address] | [place], [place] | | | BABAR TAMEZ OF CARE | [facility] | [address] | | | TESTS | | | [...] | + + + + + | [facility] | [address] | [place] [address] | | | NAY KANG | PARK [...] MARQUAM | [address] | [place], [place] | | | BABAR TAMEZ OF CARE | [address] | [address] | | | TESTS | | | [...] (H) | 70 - 99 mg/dL | [facility] - | | | GLUCOSE, [...] MARQUAM | [address] | [place], [place] | | | [facility] | [address] | [address] | | | TESTS | | | [...] ARGUETA | [address] | [place] | | | BABAR TAMEZ OF TIM[place] | [facility] | [address] | | | TESTS | | | [...] [facility] | [address] | [place] [address] | | | SERVICES, NAY | GENNARO [...] MARQUAM | [address] | [place], [place] | | | JOI POINT OF CARE | [address] | [address] | | | TESTS | | | [...] ARGUETA | [address] | [place], [place] | | | JOI POINT OF CARE | [address] | [address] | | | TESTS | | | [...] MARQUAM | [address] | [place], [place] | | | BABAR TAMEZ OF CARE | [facility] | [address] | | | TESTS | | | [...] - MARQUAM | [address] | [place], [place] | | | JOI POINT OF CARE | [address] | [address] | | | TESTS | | | [...] | + + + + + | [facility] | [address] | [place] [address] | | | SERVICES, NAY | PARK [...] MARQUAM | [address] | [place], [place] | | | BABAR TAMEZ OF CARE | [address] | [address] | | | TESTS | | | [...] BARRYAM | [address] | [place], [place] | | | JOI POINT OF CARE | [address] | [address] | | | TESTS | | | [...] + + + | [facility] | [address] | [place], [place] | | | BABAR T[facility] OF [place] | [address] | [address] | | | TESTS | | | [...] Note | + + | Service Account, brick&mobile In Interface - 02/18/2018 3:50 PM PDT [...] Attending | | Surgeon: Pablito Barroso MD Brake Repairer Hydraulic(s): All López MD, | | PhD Preoperative [...] no change in neuromonitoring signals. | | [place] to skin, nylon to drain.Indication For Procedure: Mr. Cisneros is a 67-year-old | | gentleman with ankylosing spondylitis and history of fusion. He has a history of prior | | C3-T2 posterior instrumented fusion in 2006 after a C7 fracture. He presented to [facility] | | via Trauma having [...] These were then final tightened using the payroll accounting clerk instrumentation. | | The area was thoroughly [...] 02/18/2018 12:36:03DT: 02/18/2018 13:17:58Job #: | | [id number] | |KG/MODL | | | | | | /[id number] | + + CAPILLARY BLOOD GLUCOSE (NO [...] + + | [facility] | [address] | [place], [place] | | | BABAR TAMEZ OF TIMUR | [facility] | [address] | | | TESTS | | | [...] ARGUETA | [address] | [place], [place] | | | BABAR TAMEZ OF CARE | [address] | [address] | | | TESTS | | | [...] MARQUAM | [address] | [place], [place] | | | JOI POINT OF CARE | [address] | [address] | | | TESTS | | | [...] ARGUETA | [address] | [place], [place] | | | JOI POINT OF CARE | [address] | [address] | | | TESTS | | | [...] ELLIE | [address] | [place], [place] | | | BABAR TAMEZ OF [place] | [address] | [address] | | | TESTS | | | [...] ranges for full anticoagulation: INR for | [facility] | | Venous Thromboembolism (2.0 - 3.0) INR INR | LABORATORY | | for most patients with mech. valves (2.5 - 3.5) INR | NAY KANG | + + + + + + + + | Performing | Address | City/State/Zipcode | Phone Number | | Organization | | | | + + + + + | [facility] | [address] | [place] [address] | | | SERVICES, NAY | GENNARO [...] 12/30/2017 | LABORATORY | | | NAY AKNG | + + + + + + + + | Performing | Address | City/State/Zipcode | Phone Number | | Organization | | | | + + + + + | [facility] | [address] | [place] [address] | | | NAY KANG | GENNARO [...] | + + + + + | [facility] | [address] | [place] [address] | | | NAY KANG | PARK [...] | | | LABORATORY | | | FINNISH | | | SERVICES, | | | [...] | + + + + + | [facility] | [address] | [place] [address] | | | SERVICES, CORE | [address] | | | + + + + + INTRAOPERATIVE NEURO MONITORING (02/18/2018) + + + | Narrative | Performed At | + + + | Patient Name: Jose Rafael Cisneros Date of : 1950 | | | Date of Test: 02/18/2018 Place | | | of Service: IP Intra Op (55) [id number] INTRAOPERATIVE | | | NEURO MONITORING IOM: [...] min(s), with modifier GY | | | 75208 - Short Latency EP's Upper AND Lower extremities 80214 - | | | Central Motor EP's Upper AND Lower extremities 28458 - EEG in Sleep | | | [...] MARQUAM | [address] | [place], [place] | | | BABAR TAMEZ OF CARE | [facility] | [address] | | | TESTS | | | [...] (H) | 70 - 99 mg/dL | [facility] - | | | GLUCOSE, [...] MARQUAM | [address] | [place], [place] | | | BABAR TAMEZ OF [facility] | [address] | [address] | | | TESTS | | | [...] ARGUETA | [address] | [place], [place] | | | BABAR TAMEZ OF CARE | [facility] | [address] | | | TESTS | | | [...] B[facility] | [address] | [place], [place] | | | BABAR TAMEZ OF TIMUR | [facility] | [address] | | | TESTS | | | [...] (H) | 70 - 99 mg/dL | [facility] - | | | GLUCOSE, [...] ELLIE | [address] | [place], [place] | | | BABAR TAMEZ OF [facility] | [address] | [address] | | | TESTS | | | [...] [facility] | [address] | [place] [address] | | | SERVICES, CORE | GENNARO [...] | + + + + + | [facility] | [address] | [place] [address] | | | SERVICES, CORE | GENNARO [...] + + | [facility] | [address] | [place] [address] | | | SERVICES, CORE | PARK [...] | | | LABORATORY | | | FINNISH | | | SERVICES, | | | [...] | + + + + + | [facility] | [address] | [place] [address] | | | NAY KANG | GENNARO [...] (H) | 70 - 99 mg/dL | [facility] - | | | GLUCOSE, [...] MARQUAM | [address] | [place] | | | [facility] | [address] | [address] | | | TESTS | | | [...] ARGUETA | [address] | [place] | | | BABAR TAMEZ OF TIMUR | [facility] | [address] | | | TESTS | | | [...] DEPT OF | [address] | [place], [place] | | | CARDIOLOGY | [address] | [address] | | + + + + + [...] B[facility] | [address] | [place], [place] | | | JOI POINT OF CARE | [address] | [address] | | | TESTS | | | [...] ARGUETA | [address] | [place] | | | BABAR TAMEZ OF TIMUR | [address] | [address] | | | TESTS | | | [...] [facility] | [address] | [place] [address] | | | NAY KANG | GENNARO [...] | + + + + + | [facility] | [address] | [place] [address] | | | SERVICES, CORE | PARK [...] [facility] | [address] | [place] [address] | | | SERVICES, NAY | GENNARO [...] | | | LABORATORY | | | FINNISH | | | SERVICES, | | | [...] | + + + + + | [facility] | [address] | [place] [address] | | | SERVICES, CORE | [address] [...] | + + + + + | [facility] | [address] | [place] [address] | | | SERVICES, CORE | [address] [...] | + + + + + | [facility] | [address] | [place] [address] | | | SERVICES, CORE | [address]ENN[address] [...] MARQUAM | [address] | [place], [place] | | | BABAR TAMEZ OF CARE | [address] | [address] | | | TESTS | | | [...] [facility] | [address] | [place] [address] | | | SERVICES, CORE | PARK [...] [facility] | [address] | [place] [address] | | | SERVICES, | [address] [...] [facility] | [address] | [place] [address] | | | SERVICES, | [address] [...] ARGUETA | [address] | [place], [place] | | | JOI POINT OF CARE | [address] | [address] | | | TESTS | | | [...] Note | + + | Service Account, brick&mobile In Interface - 02/15/2018 4:57 PM PDT [...] AR[facility]ETA | [address] | [place], [place] | | | BABAR TAMEZ OF TIMUR | [address] | [address] | | | TESTS | | | [...] ARGUETA | [address] | [place], [place] | | | BABAR TAMEZ OF CARE | [facility] | [address] | | | TESTS | | | [...] [facility] | [address] | [place] [address] | | | PEARL, NAY | GENNARO [...] | + + + + + | [facility] | [address] | [place] [address] | | | SERVICES, CORE | [address]ENNAR[address] [...] | + + + + + | [facility] | [address] | [place] [address] | | | SERVICES, NAY | GENNARO [...] | + + + + + | [facility] | [address] | [place] [address] | | | SERVICES, CORE | [address] [...] | + + + + + | [employer] [facility] | [address] | [place] [address] | | | SERVICES, | [address] [...] MCHC, PLT, IG% and IG# effective | [facility] | | 12/30/2017 Must be ordered if Coagulopathy Panel is ordered | LABORATORY | | | NAY KANG | + + + + + + + + | Performing | Address | City/State/Zipcode | Phone Number | | Organization | | | | + + + + + | [facility] | [address] | [place] [address] | | | NAY KANG | GENNAR[address] [...] | | | LABORATORY | | | FINNISH | | | SERVICES, | | | [...] | + + + + + | [facility] | [address] | [place] [address] | | | SERVICES, CORE | GENNARO [...] | + + + + + | [facility] | [address] | [place] [address] | | | SERVICES, CORE | GENNARO [...] ARGUETA | [address] | [place] | | | BABAR TAMEZ OF [facility] | [address] | [address] | | | TESTS | | | [...]
--- OUTSIDE RECORDS SUMMARY | ~2019-01-28 | XMS | Encounter Summary ---
Demographics + + + | Address | [address] | | | [place] [address] | + + + | Home Phone [...] | Author | [facility] | + + + | Organization | [facility] | + + + | Address | [...] Team Providers + +------+ + | Care Solar Energy Specialist Name | Role | Phone | [...] | | | Ave Mailcode: [address] | [place], [place] | | | | | [facility] | [address] | | | | | and | [phone] | | | | | Floor [place], [place] | | | | | | [address] | | | | | | [phone] | | | +--------+ + + + [...]
--- OUTSIDE RECORDS SUMMARY | ~2019-01-28 | XMS | Encounter Summary ---
Demographics + + + | Address | [address] | | | [place] [address] | + + + | Home Phone [...] Team Providers + +------+ + | Care Kraft Digester Operator Name | Role | Phone | [...] 05/09/ | Surgery | 6A Intra Op [facility] | Rosa M Smart MD | COMPLEX LEFT TOTAL | | 2011 | | [facility] | [address] | HIP ARTHROPLASTY | | | | Admitting Desk | [facility] | | | | | Located on the 9 | [place], [place] | | | | | floor [address] | [address] | | | | | [facility] | [phone] | | | | | [place], [place] | | | | | | [address] | | | +--------+---------+ + + + [...] they suspect your wound is infected. Call [facility] Orthopedics first at [phone]. Diet Regular Regular diet- There are no [...] 2 weeks (or as previously scheduled). Call [phone] to confirm or schedule this appointment. PCP: As needed for any medical concerns not related to your surgery. Future Appointments Date & Time Provider Department Dept Phone Center 05/10/2012 2:15 PM Antony Ptaterson MD [facility] Radiation Medicine [phone] Rad Onc 05/19/2012 8:00 AM Maldonado Ewing PA-C [facility] Orthopaedics & Rehabilitation [phone] Amy thornton Deep Vein Thrombosis (Leg Blood Clot) Prevention DVT prophylaxis: You are at increased risk of forming a blood clot following your joint replacement. - We have recommended that you take Coumadin following your surgery to decrease this risk. - See discharge prescriptions for administration instructions. - Call Orthopedic Clinic at [phone] if any persistent, localized swelling that does [...] and ask for the orthopaedic surgery resident aeronautical engineering professor. Additional Post-Op Instructions / What to Expect [...] feel that you will need more, call during business hours in order to get a new prescription. Please allow 48 hours for ref ills to be processed. - Schedule II narcotics can NOT be called in to a pharmacy. Please arrange for someone to p ick up your prescription or allow additional time for our clinic to mail you requested meliza l. - On-call (after hours) MDs are [...] Cox NP - 05/12/2012 1:26 PM PDTOrtho SOFTWARE INTEGRATOR Progress Note 05/12/2012 1:26 PM Author BLANCA [...] to dc to SNF BLANCA COX NP [facility] [address] [facility] [address] Too Rosado, Gifty Hodge - 05/12/2012 6:23 AM PDT Ortho Progress [...] Discharge likely postoperative day 3. Will ask caseworker protective services to assess for SNF placem ent. I performed a history and physical examination of the patient and discussed his management with the resident. I reviewed the resident s note and agree with the documented findings and plan of care. ROSA M SMART MD [facility] [address] [place] [address] uRosa M coffey MD - 0 05/10/2012 5:59 AM PDT [...] plan of care. ROSA M SMART MD [facility] [address] [facility] [address] [facility] [address] uerlinda, Rosa M Paige MD - 0 [...] plan of care. ROSA M SMART MD [facility] [address] [facility] [phone] documented in this enc ounter Plan of [...] MARQUAM | [address] | [place], [place] | | | [facility] [place] [facility] [place] | [facility] | [address] | | | TESTS | | | [...] ARGUETA | [address] | [place], [place] | | | [facility] OF CARE | [address] | [address] | | | TESTS | | | [...] | + + + + + | [facility] DEPARTMENT | [address] | [place] [address] | | | PATHOLOGY | [address] [...] (H) | 60 - 99 mg/dL | [facility] - | | | [...] ARGUETA | [address] | [place], [place] | | | [place] | [address] | [address] | | | TESTS | | | [...] MARQUAM | [address] | [place], [place] | | | [facility] CARE | [address] | [address] | | | TESTS | | | [...] - ELLIE | [address] | [place], [place] | | | [place] | [address] | [address] | | | TESTS | | | [...] ARGUETA | [address] | [place], [place] | | | [place] | [address] | [address] | | | TESTS | | | [...] + | [facility] DEPARTMENT OF | [address] [facility] | [place] [address] | | | PATHOLOGY | [address] [...] | + + + + + | [facility] DEPARTMENT | [address] | [place] [address] | | | PATHOLOGY | [address] [...] (H) | 60 - 99 mg/dL | [facility] - | | | [...] ARGUETA | [address] | [place], [place] | | | [facility] | [facility] | [address] | | | TESTS | | | [...] | | | POC | | | ABBAR TAMEZ | | [...] ELLIE | [address] | [place], [place] | | | [place] | [address] | [address] | | | TESTS | | | [...] + + + + + | AUTUMN Angelica ELLIE | [address] [facility] [address] | [place], [place] | | | [facility] | [address] | [address] | | | TESTS | | | | + + + + + OPERATION RECORD (05/10/2012 11:16 AM PDT) + + | Transcriptions | + + | Rosa M Smart MD - 05/10/2012 7:13 AM PDT [id number] | | [id number] CISNEROS JORGE L | | [id number] Date: 05/09/2012 Attending Surgeon: Ros aM | | Melinda Smart M.D. Chocolate Dipper(s): Maldonado Ewing PA-C Please note, no | [...] The [place]travel[place] the [place] the [place] setting due to the | | complexityof his situation. Overall surgical time was close to 3 times what | | wouldotherwise be expected for this type of procedure. There would also behigher | | anticipated rates of associated morbidity. For all of thesereasons, the complexity | | modifier is warranted. Rosa M Smart M.D.[facility] / [id number] / [id number] / [id number] /D: | | 05/09/2012T: 05/09/2012 | |ambulatory [...] 40. The patient | |traveled across the [facility] to the [facility] setting due to the complexity | |of [...] |Rosa M Smart M.D. | |TW / | |[id number] / [id number] / [id number] / | | | | | | [...] + + + | AUTUMN ARGUETA | [address] | [place], [place] | | | [facility] | [address] | [address] | | | TESTS | | | [...] DEPARTMENT OF | [address] | [place] [address] | | | PATHOLOGY | [address] [...] DEPARTMENT OF | [address] | [place] [address] | | | PATHOLOGY | [address] [...] DEPARTMENT OF | [address] | [place] [address] | | | PATHOLOGY | [address] [...] ARGUETA | [address] | [place], [place] | | | JOI [facility] | [address] | [address] | | | TESTS | | | | + + + + + X-RAY PORTABLE PELVIS 1 VIEW (05/09/2012 5:08 PM PDT) + + + + + + | Component | Value | Ref Range | Performed | Pathologist | | | | | At | Signature | + + + + + + | X-RAY | EXAM: MD PELVIS 1 VIEW, | | | | [...] ARGUETA | [address] | [place], [place] | | | JOI POINT OF CARE | [address] | [address] | | | TESTS | | | [...]
--- OUTSIDE RECORDS SUMMARY | ~2019-01-28 | XMS | Encounter Summary ---
Demographics + + + | Address | [address] | | | [place] [address] | + + + | Home Phone [...] Team Providers + +------+ + | Care Cut Off Saw Tender Metal Name | Role | Phone | + +------+ + | Scooby Mcclure MD | PCP | | + +------+ + Encounter Details +--------+ + + + + | Date | Type | Department | Care Team | Description | +--------+ + + + + | 10/10/ | Document-Sc | UNKNOWN DEPARTMENT | Unknown . | | | 2014 | anned | [address] [facility] | | | | | | [facility] | | | | | | [place], [place] | | | | | | [address] | | | +--------+ + + + [...]
--- OUTSIDE RECORDS SUMMARY | ~2019-01-28 | XMS | Encounter Summary ---
Demographics + + + | Address | [address] | | | [place] [address] | + + + | Home Phone [...] Team Providers + +------+ + | Care Dry Kiln Operator Helper Name | Role | Phone | [...] | | 2013 | anned | [address] [facility] | | | | | | [facility] | | | | | | [place], [place] | | | | | | [address] | | | +--------+ + + + [...]
--- OUTSIDE RECORDS SUMMARY | ~2019-01-28 | XMS | Encounter Summary ---
Demographics + + + | Address | [address] | | | [place] [address] | + + + | Home Phone [...] Team Providers + +------+ + | Care Logging Contractor Name | Role | Phone | + +------+ + | Scooby Mcclure MD | PCP | | + +------+ + Encounter Details +--------+ + + + + | Date | Type | Department | Care Team | Description | +--------+ + + + + | 02/18/ | Procedure | 6A Intra Op [facility] | | | | 2018 | Pass | [facility] | | | | | | Admitting Desk | | | | | | Located on the | | | | | | [address] | | | | | | [facility] | | | | | | [place], [place] | | | | | | [address] | | | +--------+ + + + [...]
--- OUTSIDE RECORDS SUMMARY | ~2019-01-28 | XMS | Encounter Summary ---
Demographics + + + | Address | [address] | | | [place] [address] | + + + | Home Phone [...] Team Providers + +------+ + | Care Billiard Table Assembler Name | Role | Phone | [...] [facility]MBERLY | pre-operative | | | | [facility] | | examination (Primary | | | | Mailcode: [id number] | | Dx) | | | | [facility] | | | | | | [place], [place] | | | | | | [address] | | | | | | [phone] | | | +--------+---------+ + + + [...] surgeries scheduled to take place on the [place] at the [facility]: Surgeries scheduled in the [facility] ([address] [place] [address]): registration is located on the 4th floor of [facility] (Day Surgery). Surgeries scheduled in the [facility]: registration is located on the 9th floor. Surgeries scheduled in [facility]: registration is located on the 6th floor. Surgeries scheduled in the [facility]: registration is located i n the [facility] on the first floor. For surgeries scheduled to take place at the [facility]: registration is l [...] you use specialized medical equipment at h [facility], please check with your provider before [...] be ancef - DVT risk: High Per [facility] notes: Because this patient meets criteria for [...] *PT DOES NOT WANT TO RETURN TO [place]* - A PARQ session was held, additional [...] L Cisneros : 1950 Pt's Phone numbers: [phone] (home) Date of Surgery: 03/14/2013 Thank you [...] Prong While a brief stay at a [facility] facility may not be likely, we still recommend that you or someone you trust tour several [facility] facilities in the area you would like to be prior or your admission, so that if a skilled facility is the discharge recommendatio n post operatively, the transition can progress in a more smooth and timely manner. If a [facility] facility stay is recommended at discharge, please tell us where you wo uld like to stay: I would like to stay in a facility close to [facility] At discharge, please be aware that discharge time from [facility] will be approximately around 11 :00am. Once you have been discharged please share with us your plan for transportation: Medicaid transport It is important for you to be aware that if you plan to bill Medicare for your transportati on, it is required that you be transported by stretcher, in order to ensure safe transportat ion. Please note that the [facility] Brazer Crawler Torch will fill out and submit a medical [...] with him who can help him and day care worker will check adolfo y Are there any [...]
--- OUTSIDE RECORDS SUMMARY | ~2019-01-28 | XMS | Encounter Summary ---
Demographics + + + | Address | [address] | | | [place] [address] | + + + | Home Phone [...] Providers + +------+ + | Care Television Maintenance Man Name | Role | Phone | [...] | | Review | | | | [facility] | | | | | | [address] | | | | | | Mailcode: OC2L | | | | | | [facility] | | | | | | and Zack, | | | | | | [address] | | | | | | [place], [place] | | | | | | [address] | | | | | | [phone] | | | +--------+ + + + [...]
--- OUTSIDE RECORDS SUMMARY | ~2019-01-28 | XMS | Encounter Summary ---
Demographics + + + | Address | [address] | | | [place] [address] | + + + | Home Phone [...] Team Providers + +------+ + | Care Slitter Helper Name | Role | Phone | [...] | | 2013 | anned | [address] [facility] | | | | | | [facility] | | | | | | [place], [place] | | | | | | [address] | | | +--------+ + + + [...]
--- OUTSIDE RECORDS SUMMARY | ~2019-01-28 | XMS | Encounter Summary ---
Demographics + + + | Address | [address] | | | [place] [address] | + + + | Home Phone [...] Team Providers + +------+ + | Care Ski Maker Wood Name | Role | Phone | + +------+ + | Gracie Mariano MD | PCP | Unavailable | + +------+ + Encounter Details +--------+ + + + + | Date | Type | Department | Care Team | Description | +--------+ + + + + | 08/11/ | Fire Claims Adjuster | Orthopaedics at | Jorge [place] MD | Osteoarthrosis, hip | | 2011 | | [facility] [address] | [address] | (Primary Dx); Hip | | | | [facility] [address] | [facility] [address] | pain | | | | Mailcode: [id number] | [place], [place] | | | | | [facility] | [address] | | | | | [place], [place] | [phone] | | | | | [address] | | | | | | [phone] | | | +--------+ + + + [...]
--- OUTSIDE RECORDS SUMMARY | ~2019-01-28 | XMS | Encounter Summary ---
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 | [place], | Phone: | | | | | ([facility]) | [place] [address] | [phone] | | | | | Procedures | Phone: | Fax: | | | | | REQUEST TO | [phone] | [phone] | | | | | SURGERY | Fax: | | | | | | GARBAGE PERSON | [phone] | | | | | | CT TOTAL HIP | | | | | [...] | | | | e joint | [facility] | [facility] | | | | | disease) of | & Fractur | [address] [place], | | | | | hip DJD in | [address] | [place] | | | | | hips | [address] | [address] | | | | | | [place], | Phone: | | | | | | [place] [address] | [phone] | | | | | | Phone: | Fax: | | | | | | [phone] | [phone] | | | | | | Fax: | | | | | | | [phone] | | +--------+--------+ + + + + [...] | Hip pain, | | | | [facility] | [facility] | bilateral; | | | | Mailcode: PV430 | [facility] [place] | 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 JORGE SMART MD [facility] [address] [facility] Mailcode: [id number] Phys[facility] [phone] Ender Camara MD - 04/28/2012 3:53 PM [...]
--- OUTSIDE RECORDS SUMMARY | ~2019-01-28 | XMS | Encounter Summary ---
Demographics + + + | Address | [address] | | | [place] [address] | + + + | Home Phone | | + + + | Preferred Language | Unknown | + + + | Marital Status | Single | + + + | Presybeterian Affiliation | 1041 | + + + | Race | Unknown | + + + | Ethnic Group | Unknown | + + + Author + + + | Author | [facility] | + + + | Organization | [facility] | + + + | Address | Unknown | + + + | Phone | Unavailable | + + + Support + + +---------+ + | Name | Relationship | Address | Phone | + + +---------+ + | Di Cisneros | ECON | Unknown | | + + +---------+ + Care Team Providers + +------+ + | Care Control Equipment Electrician Name | Role | Phone | + +------+ + | Scooby Mcclure MD | PCP | | + +------+ + Reason for Visit + + + | Reason | Comments | + + + | Dementia | Follow up for memory loss. | + + + Consult and Treat (Routine) + +--------+ + + + + | Status | Reason | Specialty | Diagnoses / | Referred By | Referred To | | | | | Procedures | Contact | Contact | + +--------+ + + + + | Authorized | | Neurology | Diagnoses | Quaeag, | Kathy, | | | | | Memory loss | MD Scooby | [place] | | | | | | [address] | MD Bridget | | | | | | [place] | [address] | | | | | | [address] | Drive | | | | | | [place], | [place], [place] | | | | | | [place] [address] | [address] Phone: | | | | | | Phone: | [phone] | | | | | | [phone] | Fax: | | | | | | Fax: | [phone] | | | | | | [phone] | | + +--------+ + + + + Encounter Details +--------+---------+ + + + | Date | Type | Department | Care Team | Description | +--------+---------+ + + + | 11/09/ | Office | [facility] | Sudheer Chavez | Moderate dementia | | 2019 | Visit | [facility] | MD Bridget [address] | without behavioral | | | | [address] | [address] | disturbance (Primary | | | | [place] | [place] [address] | Dx); Memory loss; | | | | [address] | [phone] | Uncontrolled | | | | [phone] | | hypertension; | | | | | | Hypertension goal BP | | | | | | (blood pressure) < | | | | | | 140/80; Exercise | | | | | | counseling; Driving | | | | | | safety issue | +--------+---------+ + + + Social History [...] + + + as of this encounter Last Filed Vital Signs + + + + | Vital Sign | Reading | Time Taken | + + + + | Blood Pressure | 170/66 | 11/09/2018 8:57 AM PDT | + + + + | Pulse | 86 | 11/09/2018 8:57 AM PDT | + + + + | Temperature | - | - | + + + + | Respiratory Rate | - | - | + + + + | Oxygen [...] AM PDT | + + + + in this encounter Instructions Patient Instructions - Sudheer Chavez MD - 11/09/2018 8:45 AM PDTYour blood pressur e was very high today. Please schedule an appointment with your PCP right away to discuss bl ood pressure medications. Take 5 mg of donepezil at bedtime. Do NOT drive at this time given the diagnosis of dementia. in this encounter Progress Notes Sudheer Chavez MD - 11/09/2018 8:45 AM PDTFormatting of this note may be different from the original. Subjective: Patient ID: Jorge L Cisneros is a 67 y.o. male. CC: Follow up for memory loss. HPIThis patient is a 67 year old gentleman with a history of memory loss. He reported memor y problems after he fell down and broke his neck the first time. He resides alone. He has be en using a cane since his hip surgery. He does not recall when he underwent the hip surgery. He reported sleeping poorly at night.He smokes marijuana. He is taking morphine and Dilaudi d for pain. His maternal grandmother may have had dementia. He has a high school education. 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 At this follow up visit, the patient reports doing well. No family member or friend accompa nied him to this visit. He reports that his memory continues to worsen. He is unsure if he b carlos taking donepezil. He uses a cane during ambulation. He does not believe that he experie nced any falls since the last visit.He denies any bowel or bladder dysfunction or incontinen ce. He denies feeling depressed or anxious at this time. He denies any difficulty with activ ities of daily living. He denies any new symptoms since the last visit. He admits that he sl eeps poorly at night and continues to use marijuana. He states that he does not monitor his blood pressure at home. He denies any recent episodes of loss of consciousness, involuntary movements, starring, confusion, focal weakness, focal sensory symptoms, aphasia, vision loss , diplopia, headaches, dysarthria, dysphagia, or vertigo. Allergies Allergen Reactions Codeine Other (See Comments) unknown Januvia [Sitagliptin] Other (See Comments) angioedema Metformin Diarrhea Penicillins Other (See Comments) unknown Rosuvastatin Other (See Comments) unknown Sulfa Antibiotics Other (See Comments) Unknown Trimethoprim Other (See Comments) unknown Current Outpatient Prescriptions: acetaminophen (TYLENOL) 500 MG tablet, Take 1 tablet by mouth every 8 (eight) hours as needed., Disp: , Rfl: allopurinol (ZYLOPRIM) 100 MG tablet, Take 100 mg by mouth daily., Disp: , Rfl: cephALEXin (KEFLEX) 500 MG capsule, Take 1 capsule by mouth 4 (four) times daily., Dis p: 28 capsule, Rfl: 0 Cholecalciferol 2000 units CAPS, Take 1 tablet by mouth., Disp: , Rfl: docusate sodium (COLACE) 100 MG capsule, Take 1 capsule by mouth daily as needed., Dis p: , Rfl: donepezil (ARICEPT) 5 MG tablet, Take 1 tablet by mouth nightly., Disp: 30 tablet, Rfl : 3 folic acid (FOLVITE) 1 MG tablet, Take 1 mg by mouth daily. Indications: 0.5 tab by mo uth q day, Disp: , Rfl: hydrochlorothiazide (HYDRODIURIL) 25 MG tablet, Take 25 mg by mouth daily. Indications : take 1 tab by mouth q morning for HBP, Disp: , Rfl: HYDROmorphone (DILAUDID) 2 MG tablet, Take 1 tablet by mouth daily as needed., Disp: , Rfl: insulin aspart (NOVOLOG) 100 UNIT/ML injection, Inject into the skin 3 (three) times daily before meals. Indications: Inject 25 units under the skin before meals (2-3 x per day) , Disp: , Rfl: insulin glargine (LANTUS) 100 UNIT/ML injection, Inject into the skin nightly. Indica tions: Inject 65 units under the skin at bedtime for diabetes, Disp: , Rfl: levothyroxine (SYNTHROID) 50 MCG tablet, Take 50 mcg by mouth every morning before kai akfast. Indications: Take 1 tab by mouth q day except take 1 and 1.5 tab twice weekly., Disp : , Rfl: medical marijuana, once daily. 3 grams per day, Disp: , Rfl: morphine (MSIR) 15 MG tablet, Take 15 mg by mouth every 4 (four) hours as needed for P ain. Indications: Take 1 tab by mouth q 12 hrs if needed for pain, Disp: , Rfl: morphine (MSIR) 20 MG/ML concentrated solution, Take 60 mg by mouth every 2 (two) hour s as needed for Pain. Indications: Take 1 tab by mouth q 12 hrs if needed for pain, Disp: , Rfl: Multiple Vitamins-Minerals (MULTIVITAMIN WITH MINERALS) tablet, Take 1 tablet by mouth daily. Indications: Take 1 tab q day, Disp: , Rfl: rivaroxaban (XARELTO) 20 MG tablet, Take 1 tablet by mouth daily., Disp: , Rfl: lisinopril (ZESTRIL) 20 MG tablet, Take 1 tablet by mouth daily., Disp: 30 tablet, Rfl : 0 Review of Systems Psych Memory loss as per HPI. The review of systems is negative for General, Eyes, ENT, Resp, GI, , MS, Derm, Neuro, En do, Heme, and Allergy. Objective: Physical Exam Vitals: 11/09/18 0857 BP: 170/66 Pulse: 86 SpO2: 97% Focused neurological exam: Alert, oriented to person and place only. Speech clear. Language intact to fluency and comprehension. EOM intact, visual elaine full to finger confrontation, face symmetric. No asymmetry, no atrophy, and no involuntary movements noted. Normal tone and strength in the upper and lower extremities. No pronator drift in the extre mities. Sensation intact to light touch throughout. No dysmetria. Slow and cautious normal gait with 2 canes. Assessment and Plan: Moderate dementia possibly Alzheimer's type. He is unsure if he started donepezil. His neur ological exam remains unchanged when compared to the last visit. I discussed treatment optio ns for dementia at length with the patient. I spoke to his grandson Jean over the phone at the request of Mr. Cisneros. I explained to his grandson that Mr. Cisneros has dementia. I explained the workup to date and treatment. I explained that Mr. Cisneros should be taking donepezil at b edtime. I advised his grandson to overlook all his medications including insulin due to safe ty concerns. I also explained to his grandson that Mr. Cisneros's blood pressure was very elevat ed at this visit and the last visit. I advised his grandson to monitor his blood pressure at home and schedule an appointment with Mr. Cisneros's PCP to discuss medications for the blood p ressure. I explained that high blood pressure is the #1 risk factor for stroke. I also expla ined to his grandson that Mr. Cisneros must refrain from driving at this time given the signific ant memory problems. I have printed all these instructions on the AVS which the patient will be given at the end of the visit. I discussed safety issues at length with the patient. I r eminded him to refrain from driving at this time. I discussed the importance of good sleep h ygiene, mental exercises, and physical exercises. I discussed his vascular risk factors, inc luding hypertension and marijuana use, and their correlation with stroke risk. I discussed t he importance of vascular risk factor optimization for primary stroke prevention. I reassure d him and answered all questions. He scored 57/100 on the recent WACE. He underwent an MRI of the brain without contrast on 10/18/2016 which reported mild brain volume loss but was otherwise unremarkable. This study w as not available on disc for my review. Recommendations: 1) Start donepezil at 5 mg qHS for dementia. I discussed the side effects in detail with th e patient and his grandson. 2) Repeat a WACE test in April 2019 . 3) Review recent labs and order TSH and B 12 level if not ordered recently. 4) His blood pressure was very elevated today. I reminded him to monitor his blood pressure at home and see his PCP emergently. 5) Treatment of hyperglycemia by his PCP with a target glycated hemoglobin level of less th an 7%. 6) I reminded him to quit using marijuana. I explained that marijuana use can increase the risk of stroke. 7) I reminded him to refrain from driving at this time. 8) Follow up in 4 months. I reassured him and answered all questions. I discussed etiologie s for memory loss. I also discussed the signs and symptoms of a stroke and stressed the impo rtance of an immediate medical evaluation at the nearest ED (call 911). I discussed his vasc ular risk factors and their correlation with stroke risk. I provided written information and encouraged the patient to call with any questions or concerns. in this encounter Plan of Treatment +--------+ + + + + | Date | Type | Specialty | Care Team | Description | +--------+ + + + + | 05/01/ | Initial | Neurology | Sarahi Jade, | | | 2019 | consult | | MD Sushil Yang | | | | | | [place] | | | | | | [address] | | | | | | | | +--------+ + + + + as of this encounter Visit Diagnoses + + | Diagnosis | + + | Moderate dementia without behavioral disturbance - Primary | + + | Memory loss | + + | Uncontrolled hypertension | + + | Unspecified essential hypertension | + + | Hypertension goal BP (blood pressure) < 140/80 | + + | Unspecified essential hypertension | + + | Exercise counseling | + + | Driving safety issue | + + | Other specified personal history presenting hazards to health | + + Administered Medications + +--------+ +------+------+------+ | Medication Order | MAR | Action | Dose | Rate | Site | | | Action | Date | | | | + +--------+ +------+------+------+ | PPD Test | Given | | | | | | | | 3 00:00 | | | | | | | PDT | | | | + +--------+ +------+------+------+ +---+---+ | | | +---+---+ + +-------+ +---+---+---+ | PPD Test | Given | | | | | | | | 3 00:00 | | | | | | | PDT | | | | + +-------+ +---+---+---+ +---+---+ | | | +---+---+ in this encounter
--- OUTSIDE RECORDS SUMMARY | ~2019-01-28 | XMS | Encounter Summary ---
Demographics + + + | Address | [address] | | | [place] [address] | + + + | Home Phone [...] Team Providers + +------+ + | Care Purchasing Clerk Name | Role | Phone | [...] | 2016 | Encounter | Lab at [facility] [address] | | error) | | | | João Myrick Mailcode: | | | | | | [facility] | | | | | | Health and Healing, | | | | | | 3rd Floor [place], | | | | | | [place] [address] | | | | | | [phone] | | | +--------+ + + + [...]
--- OUTSIDE RECORDS SUMMARY | ~2019-01-28 | XMS | Encounter Summary ---
Demographics + + + | Address | [address] | | | [place] [address] | + + + | Home Phone [...] Author + + + | Author | [facility] | + + + | Organization | [facility] | + + + | Address [...] Team Providers + +------+ + | Care Department Clinician Name | Role | Phone | + +------+ + | Scooby Mcclure MD | PCP | | + +------+ + Encounter Details +--------+ + + + + | Date | Type | Department | Care Team | Description | +--------+ + + + + | 10/10/ | Document-Sc | UNKNOWN DEPARTMENT | Unknown . | | | 2014 | anned | [address] [facility] | | | | | | [facility] | | | | | | [place], [place] | | | | | | [address] | | | +--------+ + + + [...]
--- OUTSIDE RECORDS SUMMARY | ~2019-01-28 | XMS | Encounter Summary ---
Demographics + + + | Address | [address] | | | [place] [address] | + + + | Home Phone | | + + + | Preferred Language | Unknown | + + + | Marital Status | Single | + + + | Baptism Affiliation | BAP | + + + [...] Team Providers + +------+ + | Care Teacher Of The Deaf/Hard Of Hearing Name | Role | Phone | + [...] | | | | | [address] [facility] | [address] | | | | | [facility] | [place] [address] | | | | | Mailcode: [id number] | [phone] | | | | | [address] | | | | | | [place], [place] | | | | | | [address] | | | | | | [phone] | | | +--------+ + + + [...]
--- OUTSIDE RECORDS SUMMARY | ~2019-01-28 | XMS | Encounter Summary ---
Demographics + + + | Address | [address] | | | [place] [address] | + + + | Home Phone [...] Team Providers + +------+ + | Care Merchandise Presentation Associate Name | Role | Phone | + +------+ + | Scooby Mcclure MD | PCP | | + +------+ + Encounter Details +--------+ + + + + | Date | Type | Department | Care Team | Description | +--------+ + + + + | 11/27/ | Document-Sc | UNKNOWN DEPARTMENT | Other, Faculty | | | 2014 | anned | [address] [facility] | [phone] | | | | | [facility] | | | | | | [place], [place] | | | | | | [address] | | | +--------+ + + + [...]
--- OUTSIDE RECORDS SUMMARY | ~2019-01-28 | XMS | Encounter Summary ---
Demographics + + + | Address | [address] | | | [place] [address] | + + + | Home Phone | | + + + | Preferred Language | Unknown | + + + | Marital Status | Single | + + + | Taoism Affiliation | 1041 | + + + | Race | Unknown | + + + | Ethnic Group | Unknown | + + + Author + + + | Author | [facility] | + + + | Organization | [facility] | + + + | Address | Unknown | + + + | Phone | Unavailable | + + + Support + + +---------+ + | Name | Relationship | Address | Phone | + + +---------+ + | Di Cisneros | ECON | Unknown | | + + +---------+ + Care Team Providers + +------+ + | Care Reuse Technician Name | Role | Phone | [...] | [address] | | | | | [address] | | | | | | [phone] | | | +--------+ + + + [...] May | | | | | | [id number] | | | | | | | | +--------+ + + + + as of this encounter Visit Diagnoses Not on filein this encounter"
--- OUTSIDE RECORDS SUMMARY | ~2019-01-28 | XMS | Encounter Summary ---
Demographics + + + | Address | [address] | | | [place] [address] | + + + | Home Phone [...] Team Providers + +------+ + | Care Division Commander Name | Role | Phone | + [...] [address] | | | | | | [facility] [address] | | | | | | Mailcode: [id number] | | | | | | [place] | | | | | | [place], [place] | | | | | | [address] | | | | | | [phone] | | | +--------+ + + + [...] | + +---------+ + + | [facility] DEPARTMENT OF | | | | | RADIOLOGY | | | | + +---------+ + + documented in this encounter Visit Diagnoses + + | Diagnosis | + + | Osteoarthrosis, hip Localized osteoarthrosis not specified whether primary or | | secondary, pelvic region and thigh | + + documented in this encounter"
--- OUTSIDE RECORDS SUMMARY | ~2019-01-28 | XMS | Encounter Summary ---
Demographics + + + | Address | [address] | | | [place] [address] | + + + | Home Phone [...] + + | Author | [facility] | + + + | Organization | [facility] | + + + | [...] Providers + +------+ + | Care Scrap Wheeler Name | Role | Phone | + [...] | | | | | is, | [facility] | [address] | | | | | unspecified | [address] | [address] [place], | | | | | whether | [address] | [place] | | | | | generalized | [address] | [address] | | | | | or | [place], | Phone: | | | | | localized, | [place] [address] | [phone] | | | | | pelvic | Phone: | Fax: | | | | | region and | [phone] | [phone] | | | | | thigh | Fax: | | | | | | Procedures | [phone] | | | | | | REQUEST TO | | | | | | | SURGERY | | | | | | | PLASTIC BUBBLE PACKER | | | | | | | MO TOTAL HIP | | | | | | | | | | | | | | ARTHROPLASTY | | | | | | | MO | | | | | | | [...] Taj | | | | | | [facility] | [address] | | | | | | & [address] | [address] [place], | | | | | | [address] | [place] | | | | | | [place] | [address] | | | | | | [place], | Phone: | | | | | | [place] [address] | [phone] | | | | | | Phone: | Fax: | | | | | | [phone] | [phone] | | | | | | Fax: | | | | | | | [phone] | | +--------+--------+ + + + + [...] | (Primary Dx); | | | | [facility] | [facility] | Osteoarthrosis, hip; | | | | Mailcode: [id number] | [facility] [place] | 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 [facility] and severe OA. [...]
--- OUTSIDE RECORDS SUMMARY | ~2019-01-28 | XMS | Encounter Summary ---
Demographics + + + | Address | [address] | | | [place] [address] | + + + | Home Phone [...] Team Providers + +------+ + | Care Outbound Sales Consultant Name | Role | Phone [...] | 2018 | Encounter | Lab at [facility] [address] | [address] [facility] | | | | | João Myrick Sweetser for | [facility] | | | | | Health and Healing, | [place], [place] | | | | | [address] [place] [address] | [address] | | | | | [place], [place] | [phone] | | | | | [address] | | | | | | [phone] | | | +--------+ + + + [...]
--- OUTSIDE RECORDS SUMMARY | ~2019-01-28 | XMS | Encounter Summary ---
Demographics + + + | Address | [address] | | | [place] [address] | + + + | Home Phone [...] Team Providers + +------+ + | Care Electrical And Radio Mechanic Name | Role | Phone | [...] evaluation | | 2012 | cheduled | [facility] at | | | | | | [facility] | | | | | | Stay [address] | | | | | | [facility] | | | | | | Mailcode: [id number] | | | | | | Bianca Poececelia | | | | | | [address] [place], [place] | | | | | | [address] | | | | | | [phone] | | | +--------+ + + + [...] perfume, lotions or powder. Remove any nail anguillan from at least one fingernail. Do not [...] Stay Unit [place] [place], fourth floor Room 4518 Surgery Check in Time: Someone from your surgeon's office or [facility] will provide you with information regarding [...] it is after office hours, call the [facility] center machine set up operator at [phone] and ask them to page your doc tor. documented in this encounter Plan of Treatment Not on filedocumented as of this encounter Visit Diagnoses Not on filedocumented in this encounter"
--- OUTSIDE RECORDS SUMMARY | ~2019-01-28 | XMS | Encounter Summary ---
Demographics + + + | Address | [address] | | | [place] [address] | + + + | Home Phone [...] Providers + +------+ + | Care Religious Activities Director Name | Role | Phone | [...] Anna | | | | | | [facility] | | | | | | [place], [place] | | | | | | [address] | | | +--------+ + + + [...]
--- OUTSIDE RECORDS SUMMARY | ~2019-01-28 | XMS | Encounter Summary ---
Demographics + + + | Address | [address] | | | [place] [address] | + + + | Home Phone [...] Team Providers + +------+ + | Care Material Manager Name | Role | Phone | [...] | | | 2013 | Event | [facility] | R, RECYCLE DRIVER [address] | | | | | Admitting Desk | [address] | | | | | Located on the 9 | [place], [place] | | | | | floor [address] [facility] | [address] | | | | | [address] | [phone] | | | | | [place], [place] | | | | | | [address] | | | +--------+ + + + [...] | | | Royal Walker MD at [facility] | | | | | [address] [...]
--- OUTSIDE RECORDS SUMMARY | ~2019-01-28 | XMS | Encounter Summary ---
Demographics + + + | Address | [address] | | | [place] [address] | + + + | Home Phone [...] Providers + +------+ + | Care Meat And Poultry Inspector Name | Role | Phone | [...] Ave | | | | | | [place], [place] | Mailcode: | | | | | transaminase | [address] | [facility] | | | | | or lactic | | for Health | | | | | acid | | and Healing, | | | | | dehydrogenas | | 3rd Floor | | | | | e ([facility]) | | [place], [place] | | | | | Procedures | | [address] | | | | | [facility] ABDOMEN | | Phone: | | | | | LIMITED | | [phone] | | | | | | | Fax: | | | | | | | [phone] | +--------+--------+ + + + + Encounter Details +--------+ + + + + | Date | Type | Department | Care Team | Description | +--------+ + + + + | 12/07/ | Hospital | Diagnostic | | | | 2013 | Encounter | Radiology at [facility] | | | | | | [address] | | | | | | [facility] | | | | | | Mailcode: [id number] | | | | | | [facility] | | | | | | [place], [place] | | | | | | [address] | | | | | | [phone] | | | +--------+ + + + [...] | | | | ana laura / WALLACE | | | | | [...]
--- OUTSIDE RECORDS SUMMARY | ~2019-01-28 | XMS | Encounter Summary ---
Demographics + + + | Address | [address] | | | [place] [address] | + + + | Home Phone [...] Team Providers + +------+ + | Care Assemblies And Installations Inspector Name | Role | Phone | [...] | 2016 | Encounter | Lab at [facility] [address] | | error) | | | | João Myrick Mailcode: | | | | | | [facility] | | | | | | Health and Healing, | | | | | | 3rd Floor [place], | | | | | | [place] [address] | | | | | | [phone] | | | +--------+ + + + [...]
--- OUTSIDE RECORDS SUMMARY | ~2019-01-28 | XMS | Encounter Summary ---
Demographics + + + | Address | [address] | | | [place] [address] | + + + | Home Phone [...] Providers + +------+ + | Care Hospice Rn Name | Role | Phone | [...] Visit | Medicine Clinic at | R, SEISMOMETER OPERATOR [address] | (Primary Dx); | | | | [facility] 4th Floor [address] | Ankylosing | | | | [address] | [place], [place] | spondylitis ([facility]); | | | | Code: [address] | [address] | Hypertension; | | | | for Health and | [phone] | Diabetes mellitus | | | | Healing,4th Floor | | ([facility]); | | | | [place], [place] | | Antiphospholipid | | | | [address] | | antibody syndrome | | | | [phone] | | (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 [facility] wipe packet and instructions on proper [...] or walk. Surgery Check in Locations Admitting [facility] Surgery Check in Time: The Preoperative [...] is after office hours, call the [facility] jigger crown pouncing machine operator at [phone] and ask them to page him or h er. Preparing For Your Surgery Video -- 7 minutes of instructions! Access the [facility] website [email or web address] --> POPULAR RESOURCES --> Patient Guide --> [...] SUSHIL. I last saw this patient in [facility] on 06/29/2013 for pre-op eval for [...] further investigation and manageme nt. A. Acute NV within 7 days: no B. Unstable angina/Recent NV (7- 30 days): no C. Decompensated CHF: [...] yes Rate of cardiac , non fatal NV, non fatal cardiac arrest (RCRI) 0 risk factors - 0.4% 1 risk factors - 1%, 2 risk factors - 7%, 3 or >risk factors - 11% (may benefit from perioperative beta blockers) Risk Factor Recommendations: 1-2 risk factors- proceed with planned surgery with HR control or consider noninvasive testing if it will oil changer Surgery Risk: Intermediate Patient-related risk: Estimated [...] to this patient's care. ANGELINE ARAMBULA NP [facility] PREADMIT CLINIC [facility] PREOPERATIVE MEDICINE CLINIC AT [facility] 4TH FLOOR [address] [facility] [address] I counseled the patient regarding perioperative [...] + +--------+ + + | COMMUNICATION TO [facility] | Procedures | Routin | Preop [...] + +--------+ + + + | CA COLLECTION VENOUS | Routin | 02/28/2014 | [...] | [facility] | [address] [facility] | [place] [address] | | | OF CARE TESTS | [...] [facility] | [address] | [place] [address] | | | SERVICES, CORE | PARK [...] | + + + + + | [facility] | [address] | [place] [address] | | | SERVICES, | [address] [...] + | [facility] | [address] | [place] [address] | | | SERVICES, | [address] [...] 330 | 200 - 400 mg/dL | [facility] | | | | | | LABORATORY | | | | | | SERVICES, | | | | | | CORE | | + +-------+ + + + + + | Specimen | + + | Blood - Blood | + + + + + | Narrative | Performed At | + + + | Test now performed at [facility]. New method effective 01/24/14. | [facility] | | | LABORATORY | | | SERVICES, CORE | + + + + + + + + | Performing | Address | City/State/Zipcode | Phone Number | | Organization | | | | + + + + + | [facility] | [address] | [place] [address] | | | SERVICES, NAY | [address] [...] - | | | | | | [place] | | + +-------+ + + + + + | Specimen | + + | Blood - Blood | + + + + + + + | Performing | Address | City/State/Zipcode | Phone Number | | Organization | | | | + + + + + | [facility] | [address] | [place] [address] | | | [place] | | | [...] | | | LABORATORY | | | [place] | | | SERVICES, | | | [...] [facility] | [address] | [place] [address] | | | SERVICES, CORE | PARK [...] | + + + + + | [facility] | [address] | [place] [address] | | | SERVICES, CORE | [address] [...] CRABTREE | | | | | | ([id number]) on 03/01/2014 | | | | | | 8:03:15 PM | | | | + + + + + + + + | Specimen | + + | | + + + + + | Narrative | Performed At | + + + | Please click | [facility] | | on view image for the detailed interpretation from [facility] results. | CARDIOLOGY | + + + + + | Procedure Note | + + | Interface, Cardiology Results - 03/01/2014 8:04 PM PDT Please click on view image | | for the detailed interpretation from [employer] results. | + + + + + + + | Performing | Address | City/State/Zipcode | Phone Number | | Organization | | | | + + + + + | [facility] | [address] | [place], [place] | | | CARDIOLOGY | [address] | [address] | | + + + + + [...]
--- OUTSIDE RECORDS SUMMARY | ~2019-01-28 | XMS | Encounter Summary ---
Demographics + + + | Address | [address] | | | [place] [address] | + + + | Home Phone [...] Providers + +------+ + | Care Hot Patcher Name | Role | Phone | + +------+ + | Gracie Mariano MD | PCP | Unavailable | + +------+ + Encounter Details +--------+ + + + + | Date | Type | Department | Care Team | Description | +--------+ + + + + | 05/24/ | Caustic Pump Operator | Rheumatology at | Carole Hearn, | Ankylosing | | 2013 | | Rosette Patiño MD [address] | spondylitis (HCC) | | | | [address] [facility] | [address] | (Primary Dx) | | | | [facility] | [place] [address] | | | | | Mailcode: PV35 | [phone] | | | | | Rosette aGrnett | | | | | | [place], [place] | | | | | | [address] | | | | | | [phone] | | | +--------+ + + + [...]
--- OUTSIDE RECORDS SUMMARY | ~2019-01-28 | XMS | Encounter Summary ---
Demographics + + + | Address | [address] | | | [place] [address] | + + + | Home Phone [...] Team Providers + +------+ + | Care Grants Officer Name | Role | Phone | [...] | | | | | | [place] [address] | [address] | | | | | | Phone: | [facility] | | | | | | [phone] | [address] | | | | | | Fax: | [place], [place] | | | | | | [phone] | [address] | | | | | | | Phone: | | | | | | | [phone] | | | | | | | Fax: | | | | | | | [phone] | +--------+--------+ + + + + Encounter [...] | [facility] [address] | [address] | Ventral hernia | | | | [facility] | [place], [place] | | | | | Mailcode: L223A | [address] | | | | | [facility] | [phone] | | | | | [address] [place], [place] | | | | | | [address] | | | | | | [phone] | | | +--------+---------+ + + + [...] planning of care. Mr. Cisneros presents to [facility] after recent discharge from the inpatient setting in [place]. He had worsening upp er abdominal pain. [...] risks, and benefits. Deandre Austin MD FACS inspector structural bonding Division of Trauma, Critical Care, and Acute Care Surgery [id number] Jessica Coon MD - 03/10/2013 3:41 PM PDT [facility] EMERGENCY GENERAL SURGERY HISTORY AND PHYSICAL NOTE Patient: Jorge L Cisneros Author: JESSICA GONZALEZ MD Attending Physician: Deandre Austin MD Date of Admission: 03/10/2013 CC: RUQ pain HISTORY OF PRESENT ILLNESS/ INTERVAL UPDATE: Jorge L Cisneros is a 62 y.o. 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 On 03/06 had sudden onset epigastric pain and self-presented to the hospit al. Gallbladder US showed gallstones and possible acute cholecystitis. The patient eventuall y improved and was discharged for evaluation at [facility] EGS clinic. Prior abdominal surgery inc ludes [...] Daughter lives next door to him. Registered [place] member of the [facility]. MEDICATIONS: (Not in a hospital admission) [...] GONZALEZ MD PGY5 TRAUMA EMERGENCY GENERAL SURGERY [facility] [address] [facility] Mailcode: L223a [place] [address] This assessment and plan was formulated both independently and in conjunction with the Atte nhing Surgeon:Deandre Austin MD regarding management of this [...]
--- OUTSIDE RECORDS SUMMARY | ~2019-01-28 | XMS | Encounter Summary ---
Demographics + + + | Address | [address] | | | [place] [address] | + + + | Home Phone [...] Providers + +------+ + | Care Boiler Setter Name | Role | Phone | + [...] + + | 03/08/ | Emergency | [facility] Emergency | | | | 2012 | | Department [address] | | | | | | [address] | | | | | | [facility] | | | | | | [place] [address] | | | | | | [phone] | | | +--------+ + + + [...]
--- OUTSIDE RECORDS SUMMARY | ~2019-01-28 | XMS | Encounter Summary ---
Demographics + + + | Address | [address] | | | [place] [address] | + + + | Home Phone [...] Team Providers + +------+ + | Care Grocery Stock Clerk Name | Role | Phone | [...] thigh joint | [address] | Rd [place], | | | | | Ankylosing | [place], [place] | [place] | | | | | spondylitis | [address] | [address] | | | | | ([facility]) | Phone: | Phone: | | | | | Procedures | [phone] | [phone] | | | | | REQUEST TO | Fax: | Fax: | | | | | SURGERY | [phone] | [phone] | | | | | METAL BONDING HELPER | | | | | | | OR TOTAL HIP | | | | | [...] | | | | REFERRING | Joseph [place], | | | | | | PROVIDER PER | [place] | | | | | | [place] | [address] | | | | | | | Phone: | | | | | | | [phone] | | | | | | | Fax: | | | | | | | [phone] | +--------+--------+ + + + + Encounter Details +--------+---------+ + + + | Date | Type | Department | Care Team | Description | +--------+---------+ + + + | 12/15/ | Office | Orthopaedics at | Jorge Walker MD | Osteoarthrosis, hip; | | 2010 | Visit | [facility] [address] | [address] | Ankylosing | | | | [facility] | [facility] | spondylitis (HCC) | | | | Mailcode: PV430 | [place], [place] | | | | | [facility] | [address] | | | | | [place], [place] | [phone] | | | | | [address] | | | | | | [phone] | | | +--------+---------+ + + + [...] coumadin now. Was also recently evaluated at [facility] in [facility] for confusion and the w/u was [...] gen nad cv effort easy Crouched gait [place] bilat LE with 5/5 bilat ehl/apf/adf 2+ [...] through his PCP as [place] near [place]. I will send a note to see [...]
--- OUTSIDE RECORDS SUMMARY | ~2019-01-28 | XMS | Encounter Summary ---
Demographics + + + | Address | [address] | | | [place] [address] | + + + | Home Phone [...] Providers + +------+ + | Care Service Tech Name | Role | Phone | + +------+ + | Kita Schafer MD | PCP | | + +------+ + Encounter Details +--------+------+ + + + | Date | Type | Department | Care Team | Description | +--------+------+ + + + | 02/19/ | Lab | Laboratory at [facility] | | Thrombosis | | 2010 | | [address] | | | | | | [place], [place] | | | | | | [address] | | | | | | [phone] | | | +--------+------+ + + + [...] DEPARTMENT OF | [address] | [place] [address] | | | PATHOLOGY | [address] [...] DEPARTMENT OF | [address] | [place] [address] | | | PATHOLOGY | [address] [...] | LABORATORY | | | | at [facility], | | | | | | [place], [place]. | | | | + + + + + + + + | Specimen | + + | Blood - Blood | + + + + + | Narrative | Performed At | + + + | [facility] [facility]) | [facility] | | [facility] [place] [address] [address] [facility] | REGIONAL | | [place] [address] | LABORATORY | + + + + + + + + | Performing | Address | City/State/Zipcode | Phone Number | | Organization | | | | + + + + + | [facility] | [address] | [place] [address] | | | LABORATORY | | | [...] DEPARTMENT OF | [address] | [place] [address] | | | PATHOLOGY | [address] [...] | [facility] | | obtained with the [employer] B2GP1 IgGMA TRIPP. B2GP1 | DEPARTMENT OF | | IgGMA values obtained with different systems eng's assay methods | PATHOLOGY | | may [...] | + + + + + | [facility] | [address] | [place] [address] | | | PATHOLOGY | [address] [...] HOSPITAL & HEALTH SERVICES DEPARTMENT OF | [address] | [place] [address] | | | PATHOLOGY | [address] [...] | + + + + + | [facility] | [address] | [place] [address] | | | PATHOLOGY | [address] | | | + + + + + documented in this encounter Visit Diagnoses + + | Diagnosis | + + | Thrombosis Embolism and thrombosis of unspecified site | + + documented in this encounter"
--- OUTSIDE RECORDS SUMMARY | ~2019-01-28 | XMS | Encounter Summary ---
Demographics + + + | Address | [address] | | | [place] [address] | + + + | Home Phone [...] Team Providers + +------+ + | Care Yoga Coordinator Name | Role | Phone | + +------+ + | Ion Ace MD | PCP | Unavailable | [...] | Services [address] [place], [place] | spondylitis (HCC) | | | | [address] | [phone] | | | | | Road Mailcode: | | | | | | [id number] Physicians | | | | | | [place], | | | | | | [place] [address] | | | | | | [phone] | | | +--------+---------+ + + + [...] might be different fro m the original. [id number] JORGE L CISNEROS Date of : 1950 Start of care: 08/22/2009 Date of onset: 05/23/2009 Referring/Attending Practitioner: Jorge Walker Primary/Referral Diagnosis/ICD-9: Encounter Diagnoses Code Name Primary? Qualifier 715.35M Osteoarthrosis, hip 720.0 Ankylosing spondylitis Insurance: Payor: MEDICAID [place] Plan: [place] Product Type: Medicaid Service period from: 08/22/2009 [...] change in their status. JUDY GUTIÉRREZ, PT [facility] [address] [place] [address] Mailcode: Pv430 [address] [place] [facility] [id number] documented in this en counter Plan of [...]
--- OUTSIDE RECORDS SUMMARY | ~2019-01-28 | XMS | Encounter Summary ---
Demographics + + + | Address | [address] | | | [place] [address] | + + + | Home Phone [...] + + + | Author | [facility] [employer] | + + + | Organization | [facility] [employer] | + + + | Address | Unknown | + + + | Phone | Unavailable | + + + Support + + +---------+ + | Name | Relationship | Address | Phone | + + +---------+ + | Di Cisneros | ECON | Unknown | | + + +---------+ + Care Team Providers + +------+ + | Care Microbiology Instructor Name | Role | Phone | [...] [place] | | | | | | [address] | MD Bridget | | | | | | [place] | [address] | | | | | | [address] | Drive | | | | | | [place], | [place], [place] | | | | | | [place] [address] | [address] Phone: | | | | | | Phone: | [phone] | | | | | | [phone] | Fax: | | | | | | Fax: | [phone] | | | | | | [phone] | | + +--------+ + + + + Encounter Details +--------+---------+ + + + | Date | Type | Department | Care Team | Description | +--------+---------+ + + + | 11/09/ | Office | [facility] | Sudheer Chavez | Moderate dementia | | 2019 | Visit | [facility] | MD [address] | without behavioral | | | | [address] | [address] | disturbance (Primary | | | | [address] | [place] [address] | Dx); Memory loss; | | | | [address] | [phone] | Uncontrolled | | | | [phone] | | hypertension; | | | | [...] | | | | | Dr [address] [place] | | | | | | [address] [...]
--- OUTSIDE RECORDS SUMMARY | ~2019-01-28 | XMS | Clinical Summary ---
Demographics + + + | Address | [address] | | | [place] [address] | + + + | Home Phone [...] + + + | Author | [facility] [employer] | + + + | Organization | [facility] [employer] | + + + | Address | Unknown | + + + | Phone | Unavailable | + + + Support + + +---------+ + | Name | Relationship | Address | Phone | + + +---------+ + | Di Cisneros | ECON | Unknown | | + + +---------+ + Care Team Providers + +------+ + | Care Manager Field Name | Role | Phone | + [...] May | | | | | | [address] | | | | | | | [...] | 10/22/ | 8103.0 | | - [id number]: Qty: 1 | | | MEDICAL - | | 2019 | 210S / | | on 01/09/2017 by Kadi | | | GLBU | | | | | Mendez Nicole MD | | | | | | /[id number] | | | | | | | | [address] | + +------+------+ +--------+--------+--------+ | Quartex Lordotic [...] GLOBUS | | | 8115.0 | | [id number] - SnaImplanted: | | | MEDICAL - [...] | | 10/05/ | 8115.0 | | [id number] - | | | MEDICAL - | | 2019 | 120S / | | [id number]: Qty: 1 on | | | GLBU | | | | | 01/09/2017 by Kadi, | | | | | | /[id number] | | Mendez Nicole MD | | | | | | 4CG | + +------+------+ +--------+--------+--------+ | Graft Duragen 1x1in - | | | INTEGRA | | / | ID-[id number] | | [id number]: Qty: 1 on | | | LIFESCIENCE | | 2020 | 1 / | | 01/09/2017 by Kadi, | | | S YOLANDA - | | | /[id number] | | Mendez Nicole MD | | [...] +------+-------+ + | MEDICARE | MEDICA | [id number] | | | [address] | | | RE | | | | [place] [address] | | | IP-OP | | | | | + +--------+ +------+-------+ + | MEDICAID | MEDICA | [id number] | | | [address] | | | ID | | | | [place] | | | [place] | | | | [phone] | + +--------+ +------+-------+ + | [facility] | YELLOW | [id number] | | | | | PLANS | [...] | 1951 | [phone] | [place] [address] | | | blaire | | | [phone] | | + +--------+ +--------+ + +
--- OUTSIDE RECORDS SUMMARY | ~2019-01-28 | XMS | Encounter Summary ---
Demographics + + + | Address | [address] | | | [place] [address] | + + + | Home Phone [...] Providers + +------+ + | Care Ground Systems Engineer Name | Role | Phone | [...] | 2011 | on | at [facility] [address] | | | | | | [address] | | | | | | Meliza I[address]ra | | | | | | [place], | | | | | | [place] [address] | | | | | | [phone] | | | +--------+ + + + [...]
--- OUTSIDE RECORDS SUMMARY | ~2019-01-28 | XMS | Encounter Summary ---
Demographics + + + | Address | [address] | | | [place] [address] | + + + | Home Phone [...] Providers + +------+ + | Care Nurse Examiner Name | Role | Phone | [...] | | | | CONSULT TO | [place], [place] | Physicians | | | | | [facility] | [address] | [facility] | | | | | [facility] | Phone: | [address] | | | | | | [phone] | Physicians | | | | | | Fax: | Pavilion | | | | | | [phone] | [place], [place] | | | | | | | [address] | | | | | | | Phone: | | | | | | | [phone] | | | | | | | Fax: | | | | | | | [phone] | +--------+--------+ + + + + Reason [...] [address] | | | | | [place], [place] | Mary L[place], | | | [birth year] | | [address] | [place] [address] | | | 2012 | | [phone] | [phone] | | | | | | | | | | | | Jorge Walker MD | | | | | | [address] | | | | | | Mary [place], | | | | | | [place] [address] | | | | | | [phone] | | | | | | | [...] resident s note. MILTON RODRÍGUEZ MD [facility] [address] [place] [address] romRaghavendra mantilla MD - 0 03/20/2013 3:22 [...] of CVA. He was recently discharged from [facility] ([place], [place]) for acute cholecystitis. On 03/06/13 had sudden onset epigastric pain and self-presented to the hospital. Gallbladder US at that art e showed gallstones and possible acute cholecystitis. The patient eventually improved and wa s discharged for evaluation at [facility] EGS clinic. Prior abdominal surgery includes [...] be different f rom the original. [facility] DEPARTMENT OF SURGERY EMERGENCY GENERAL SURGERY Division [...] other applicable data points. Please refer to [facility] for this information . PHYSICAL EXAM: LAST [...] resol ution of constipation [place] [phone] [facility] A [address] [place] [facility] [place] [phone] ez Rainey, WORK CAR OPERATOR - 03/17/2013 2:33 PM PDT [facility] DEPARTMENT OF SURGERY EMERGENCY GENERAL SURGERY [...] other applicable data points. Please refer to [facility] for this information . PHYSICAL EXAM: LAST [...] ABX on Probiotics: [place] [phone] pager number [facility] A [address] [facility] [address] Anais Mccarthy MD - 03/16/2013 8:58 AM PDT [facility] [place] DEPARTMENT OF SURGERY EMERGENCY GENERAL SURGERY Division [...] other applicable data points. Please refer to [facility] for this information . PHYSICAL EXAM: LAST [...] None Fluids: Saline locked Feeding: Diabetic Analgesia: CENTER HUMAN RESOURCES MANAGER 0.6/6mins Sedation: not indicated Thromboprophylaxis: enoxaparin, SCDs Head of bed: > 30 Ulcer prophylaxis: None Glycemic control: Insulin lispro Activity/PT/OT: Up ad farzana Yogurt: ABX on Probiotics: None TEZ RAINEY NP [facility] A [address] [place] [address] Nathalia Mccarthy MD - 03/15/2013 10:24 AM PDTFormatting of this note might be different from the origina l. [facility] DEPARTMENT OF SURGERY EMERGENCY GENERAL SURGERY Division of Trauma and Critical Care Attending Physician: Raf Tello MD Progress Note Note Date: 03/15/2013 Admission Date: 03/10/2013 JOSE RAFAEL CISNEROS, Hospital Day #5 INTERVAL HISTORY and SUBJECTIVE: No acute events overnight. Pt still complaining of some abdominal tightness. REVIEW OF SYSTEMS: Pain: Pain is still 03/01 with increased CENTER HUMAN RESOURCES MANAGER 03/14 Flatus: NO Tolerating diet: Tolerating clears Nausea/Vomiting: None Bowel movement: NO Progressing with Physical Therapy: None, up ad farzana. The remainder of the complete review of system was negative. OBJECTIVE: I have reviewed the interval history and events. I have revewed the patients medications, l abs, vitals, and other applicable data points. Please refer to [facility] for this information . PHYSICAL EXAM: LAST [...] chair TID Acute on Chronic Pain - CENTER HUMAN RESOURCES MANAGER dilaudid increase dose range and lockout. [...] None Fluids: Saline locked Feeding: Clears Analgesia: CENTER HUMAN RESOURCES MANAGER 0.6/6mins Sedation: not indicated Thromboprophylaxis: enoxaparin, SCDs Head of bed: > 30 Ulcer prophylaxis: None Glycemic control: Insulin lispro Activity/PT/OT: Up ad farzana Yogurt: ABX on Probiotics: [place] [phone] [facility] A [address] [place] [facility] [place] [address] Tez Lee NP - 03/14/2013 9:05 AM PDT [facility] DEPARTMENT OF SURGERY EMERGENCY GENERAL SURGERY Division of Trauma and Critical Care Attending Physician: Raf Tello MD Progress Note Note Date: 03/14/2013 Admission Date: 03/10/2013 JO[facility] RAFAEL CISNEROS, Hospital Day #4 INTERVAL HISTORY and SUBJECTIVE: history of chronic pain. CENTER HUMAN RESOURCES MANAGER with pain. Will adjust dos e [...] other applicable data points. Please refer to [facility] for this information . PHYSICAL EXAM: LAST [...] chair TID Acute on Chronic Pain - CENTER HUMAN RESOURCES MANAGER dilaudid increase dose range and lockout. [...] D51/2 with 20kl Feeding: NPO Analgesia: dilaudid CENTER HUMAN RESOURCES MANAGER Sedation: not indicated Thromboprophylaxis: enoxaparin 120mg bid for Antiphospholipid syndrome Head of bed: > 30 Ulcer prophylaxis: 2 Glycemic control: adequate Activity/PT/OT: Ongoing Yogurt: ABX on Probiotics: [place] NP '[phone] pager number [facility] A [address] [place] [facility] [place] [address] Richie Mandel MD - 03/14/2013 1:52 AM PDT [facility] [place] DEPARTMENT OF SURGERY EMERGENCY GENERAL SURGERY Division [...] other applicable data points. Please refer to [facility] for this information . PHYSICAL EXAM: LAST [...] NEURO: Alert, oriented, gross motor function intact, banking and finance instructor grossly intact, LUNGS: CTAB CV: RRR, no [...] below: Likely DC george in AM, DC CENTER HUMAN RESOURCES MANAGER in AM Antiphospholipid antibody syndrome, chronic [...] None Fluids: PO Feeding: Reg Analgesia: dilaudid auto damage trainee Sedation: not indicated Thromboprophylaxis: Therapeutic lovenox Head of bed: > 30 Ulcer prophylaxis: n/a Glycemic control: SSI Activity/PT/OT: Ordered. - up ad farzana TID+[place] [phone] pager number [facility] A [address] [place] [facility] [place] [address] Ricky Mosley MD - 03/13/2013 8:35 AM [...] MD - 03/12/2013 7:10 AM PDT [facility] [place] DEPARTMENT OF SURGERY EMERGENCY GENERAL SURGERY PROGRESS NOTE: Note Date: 03/12/2013 Admission Date: 03/10/2013 JOSE RAFAEL CISNEROS, [id number] Hospital Day #2 SUBJECTIVE: - irritation and [...] up: EGS TBD. ARTHUR HERRERA MD [facility] [address] [place] [address] Diagnoses: [id number] Cholecystitis [id number] Ventral hernia V72.83 Other specified pre-operative examination rthur Herrera MD - 03/11/2013 7:02 AM PDT [facility] DEPARTMENT OF SURGERY Attending Physician: Raf Tello MD Progress Note Note Date: 03/11/2013 Admission Date: 03/10/2013 JOSE RAFAEL CISNEROS, [id number] Hospital Day #1 INTERVAL HISTORY and SUBJECTIVE: [...] other applicable data points. Please refer to [facility] for this information . PHYSICAL EXAM: Last [...] up: EGS TBD. ARTHUR HERRERA MD Pager: [phone] [facility] [address] [place] [address] documented in this en counter [...] [facility] | [address] | [place] [address] | | | SERVICES, CORE | [address] | | | + + + + + MAGNESIUM, PLASMA (03/19/2013 7:22 AM PDT) + +-------+ + + + | Component | Value | Ref Range | Performed | Pathologist | | | | | At | Signature | + +-------+ + + + | MAGNESIUM,P | 2.5 | 1.8 - 2.5 mg/dL | [facility] | | | LASMA | | | [...] | + + + + + | [facility] | [address] | [place] [address] | | | SERVICES, CORE | MARY [...] | | | LABORATORY | | | ERITREAN | | | SERVICES, | | | [...] MDRD equation recommended by the | [facility] | | National Kidney Disease Education [...] + + | [facility] | [address] | [place] [address] | | | SERVICES, CORE | MARY [...] [facility] | [address] | [place] [address] | | | NAY KANG | MARY [...] [facility] | [address] | [place], [place] | | | JOI POINT OF CARE | [address] | [address] | | | TESTS | | | [...] + + + | [facility] | [address] | [place], [place] | | | JOI POINT OF CARE | [address] | [address] | | | TESTS | | | [...] [facility] | [address] | [place] [address] | | | SERVICES, NAY | MARY [...] [facility] | [address] | [place] [address] | | | SERVICES, CORE | [address] [...] | | | LABORATORY | | | ERITREAN | | | SERVICES, | | | [...] + + | [facility] | [address] [facility] | [place] [address] | | | NAY KANG | MARY [...] + + | [facility] | [address] [facility] [facility] [facility] | [place] [address] | | | SERVICES, NAY | MARY [...] [facility] | [address] | [place], [place] | | | JOI POINT OF CARE | [address] | [address] | | | TESTS | | | [...] [facility] | [address] | [place], [place] | | | BABAR TAMEZ OF [facility] | [facility] | [address] | | | TESTS | | | [...] [facility] | [address] | [place], [place] | | | BABAR TAMEZ OF CARE | [address] | [address] | | | TESTS | | | [...] + + | [facility] | [address] | [place] [address] | | | SERVICES, CORE | PARK [...] | + + + + + | [facility] | [address] | [place] [address] | | | SERVICES, CORE | MARY [...] | | | LABORATORY | | | ERITREAN | | | SERVICES, | | | [...] [facility] | [address] | [place] [address] | | | SERVICES, CORE | MARY [...] [facility] | [address] | [place] [address] | | | PEARL, NAY | MARY [...] | 60 - 99 mg/dL | [facility] - | | | GLUCOSE, [...] [facility] | [address] | [place], [place] | | | BABAR TAMEZ OF [place] | [facility] | [address] | | | TESTS | | | [...] [facility] | [address] | [place], [place] | | | JOI POINT OF CARE | [address] | [address] | | | TESTS | | | [...] MARQU[facility] | [address] | [place], [place] | | | BABAR TAMEZ OF CARE | [facility] | [address] | | | TESTS | | | [...] [facility] | [address] | [place] [address] | | | SERVICES, NAY | PARK [...] | + + + + + | [facility] | [address] | [place] [address] | | | SERVICES, CORE | MARY [...] | | | LABORATORY | | | ERITREAN | | | SERVICES, | | | [...] the MDRD equation recommended by the | [facility] | | National Kidney Disease Education Program. Estimated GFR | LABORATORY | | Interpretive Information: <60 mL/min/1.73 sq | SERVICES, [facility] | | m Chronic [...] + + | [facility] | [address] | [place] [address] | | | SERVICES, CORE | MARY [...] (H) | 0.90 - 1.20 INR | [facility] | | | | | | LABORATORY [...] + + | [facility] | [address] | [place] [address] | | | NAY KANG | MARY [...] | 60 - 99 mg/dL | [facility] - | | | GLUCOSE, [...] MARCIAL[facility] | [address] | [place], [place] | | | JOI POINT OF CARE | [address] | [address] | | | TESTS | | | [...] AR[facility] | [address] | [place], [place] | | | BABAR TAMEZ OF [place] | [facility] | [address] | | | TESTS | | | [...] [facility] | [address] | [place], [place] | | | BABAR TAMEZ OF CARE | [facility] | [address] | | | TESTS | | | [...] | 60 - 99 mg/dL | [facility] - | | | GLUCOSE, [...] ELLIE | [address] | [place], [place] | | | JOI POINT OF CARE | [address] | [address] | | | TESTS | | | [...] [facility] | [address] | [place], [place] | | | BABAR TAMEZ OF TIMUR | [facility] | [address] | | | TESTS | | | [...] + + | Performing | Address | City/State/[facility] | Phone Number | | Organization | | | | + + + + + | [facility] | [address] | [place] [address] | | | PEAR[place], [facility] | [address] | | | + + + + + OPERATION RECORD (03/15/2013 1:17 PM PDT) + + | Transcriptions | + + | Devin Gonzalez MD - 03/13/2013 2:30 PM PDT Date: 03/13/2013 | | | | Attending Surgeon: Steffen Rodríguez M.D. | | | | Milk And Cream Grader(s): Devin Gonzalez MD | | Ricky Alexander [...] was told to follow up in [facility] EGS clinic for further care. | [...] | The patient was taken to [facility] OR number 6 and placed in [...] | | PD / HS | | [id number] / [id number] / [id number] / | | | | | + [...] [facility] | [address] | [place], [place] | | | BABAR TAMEZ OF [facility] | [address] | [address] | | | TESTS | | | [...] | [facility] | [address] [facility] | [place] [address] | | | SERVICES, NAY | MARY [...] [facility] | [address] | [place] [address] | | | SERVICES, NAY | MARY [...] | | | LABORATORY | | | ERITREAN | | | SERVICES, | | | [...] [facility] | [address] | [place] [address] | | | SERVICES, CORE | MARY [...] + + | [facility] | [address] | [place] [address] | | | SERVICES, CORE | PARK [...] | 60 - 99 mg/dL | [facility] - | | | GLUCOSE, [...] AR[facility]ET[facility] | [address] | [place], [place] | | | BABAR TAMEZ OF TIMUR | [facility] | [address] | | | TESTS | | | [...] MARQU[facility] | [address] | [place], [place] | | | BABAR TAMEZ OF CARE | [facility] | [address] | | | TESTS | | | [...] | 60 - 99 mg/dL | [facility] - | | | GLUCOSE, [...] ELLIE | [address] | [place], [place] | | | BABAR TAMEZ OF CARE | [address] | [address] | | | TESTS | | | [...] + + | [facility] | [address] | [place] [address] | | | NAY KANG | MARY [...] [facility] | [address] | [place] [address] | | | SERVICES, CORE | PARK [...] | | | LABORATORY | | | ERITREAN | | | SERVICES, | | | [...] | + + + + + | [facility] | [address] | [place] [address] | | | SERVICES, CORE | MARY [...] | + + + + + | [facility] | [address] | [place] [address] | | | SERVICES, CORE | MARY [...] [facility] | [address] | [place], [place] | | | BABAR TAMEZ OF CARE | [address] | [address] | | | TESTS | | | [...] MARQU[facility] | [address] | [place], [place] | | | BABAR TAMEZ OF CARE | [address] | [address] | | | TESTS | | | [...] ARGUETA | [address] | [place], [place] | | | BABAR TAMEZ OF CARE | [address] | [address] | | | TESTS | | | [...] [facility] | [address] | [place], [place] | | | BABAR TAMEZ OF CARE | [address] | [address] | | | TESTS | | | [...] [facility] | [address] | [place] [address] | | | PEARL, CORE | MARY [...] AR[facility]ET[facility] | [address] | [place], [place] | | | BABAR TAMEZ OF [facility] | [address] | [address] | | | TESTS | | | [...] ELLIE | [address] | [place], [place] | | | BABAR TAMEZ OF CARE | [address] | [address] | | | TESTS | | | [...] - ELLIE | [address] | [place], [place] | | | BABAR TAMEZ OF CARE | [facility] | [address] | | | TESTS | | | | + + + + + GLUCOSE, POC (03/13/2013 11:54 AM PDT) + +---------+ + + + | Component | Value | Ref Range | Performed | Pathologist | | | | | At | Signature | + +---------+ + + + | GLUCOSE, | 227 (H) | 60 - 99 mg/dL | [facility] - | | | POC | [...] ELLIE | [address] | [place], [place] | | | JOI POINT OF CARE | [address] | [address] | | | TESTS | | | [...] ARGUETA | [address] | [place], [place] | | | BABAR TAMEZ OF TIMUR | [facility] | [address] | | | TESTS | | | [...] - [facility] | [address] | [place], [place] | | | BABAR TAMEZ OF TIMUR | [facility] | [address] | | | TESTS | | | [...] ARGUETA | [address] | [place], [place] | | | BABAR TAMEZ OF TIM[place] | [address] | [address] | | | TESTS | | | [...] MAR[facility] | [address] | [place], [place] | | | JOI POINT OF CARE | [facility] | [address] | | | TESTS | | | [...] ARGUETA | [address] | [place], [place] | | | JOI POINT OF CARE | [address] | [address] | | | TESTS | | | [...] | + + + + + | [facility] | [address] | [place] [address] | | | SERVICES, CORE | MARY [...] MAR[facility] | [address] | [place], [place] | | | JOI POINT OF CARE | [address] | [address] | | | TESTS | | | [...] cmSerosa: | | | | | | [place] with erythema | | | | | [...] | | | | | | and business office representative | | | | | | [...] + + + + | [facility] | [address] | [place] [address] | | | PATHOLOGY | [address] [...] MAR[facility] | [address] | [place], [place] | | | BABAR TAMEZ OF CARE | [facility] | [address] | | | TESTS | | | [...] MARQU[facility] | [address] | [place], [place] | | | BABAR TAMEZ OF TIMUR | [facility] | [address] | | | TESTS | | | [...] ARGUETA | [address] | [place], [place] | | | BABAR TAMEZ OF TIMUR | [address] | [address] | | | TESTS | | | [...] + + | [facility] | [address] [facility] | [place] [address] | | | SERVICES, NAY | MARY [...] [facility] | [address] | [place], [place] | | | JOI POINT OF CARE | [address] | [address] | | | TESTS | | | [...] [facility] | [address] | [place], [place] | | | JOI POINT OF CARE | [address] | [address] | | | TESTS | | | [...] ARGUETA | [address] | [place], [place] | | | JOI POINT OF CARE | [address] | [address] | | | TESTS | | | [...] MARQU[facility] | [address] | [place], [place] | | | JOI POINT OF CARE | [address] | [address] | | | TESTS | | | [...] [facility] | [address] | [place] [address] | | | NAY KANG | MARY [...] ARGUETA | [address] | [place], [place] | | | JOI DAMON OF [facility] | [address] | [address] | | | TESTS | | | [...] [facility] | [address] | [place] [address] | | | SERVICES, | [address] [...] [facility] | [address] | [place] [address] | | | SERVICES, | [address] [...] + + | [facility] | [address] | [place] [address] | | | SERVICES, CORE | PARK [...] | + + + + + | [facility] | [address] | [place] [address] | | | SERVICES, CORE | PARK [...] + + | [facility] | [address] | [place] [address] | | | SERVICES, CORE | PARK [...] [facility] | [address] | [place] [address] | | | NAY KANG | MARY [...] [facility] | [address] | [place] [address] | | | SERVICES, CORE | [address] | | | + + + + + MAGNESIUM, PLASMA (03/10/2013 6:21 PM PDT) + +-------+ + + + | Component | Value | Ref Range | Performed | Pathologist | | | | | At | Signature | + +-------+ + + + | MAGNESIUM,P | 1.9 | 1.8 - 2.5 mg/dL | [facility] | | | LASMA | | | [...] [facility] | [address] | [place] [address] | | | SERVICES, CORE | PARK [...] [facility] | [address] | [place] [address] | | | SERVICES, CORE | PARK [...] | | | LABORATORY | | | ERITREAN | | | SERVICES, | | | [...] the MDRD equation recommended by the | [facility] | | National Kidney Disease Education Program. [...] + + | [facility] | [address] | [place] [address] | | | SERVICES, CORE | MARY [...] | 60 - 99 mg/dL | [facility] - | | | GLUCOSE, [...] [facility] | [address] | [place], [place] | | | BABAR TAMEZ OF CARE | [address] | [address] | | | TESTS | | | [...] view image for the detailed interpretation from [employer] results. | CARDIOLOGY | + + + + + | Procedure Note | + + | Interface, Cardiology Results - 03/10/2013 7:22 PM PDT Please click on view image | | for the detailed interpretation from [employer] results. | + + + + + + + | Performing | Address | City/State/Zipcode | Phone Number | | Organization | | | | + + + + + | [facility] | [address] | [place], [place] | | | CARDIOLOGY | [address] | [address] | | + + + + + [...] | | | | | | Starting [facility] 03/16/13 at 0859, | | | [...] 13 7:34 | | | | | CENTER HUMAN RESOURCES MANAGER infusion intravenous, | | AM PDT [...] 13 1:46 | | | | | CENTER HUMAN RESOURCES MANAGER infusion intravenous, | | PM PDT [...] | | | + +---+ | HYDROmorphone CENTER HUMAN RESOURCES MANAGER infusion 1 | | | dose, [...] | | | | First dose on [facility] 03/16/13 at | | AM PDT | [...] | | | DAILY, First dose on [facility] 03/16/13 | | AM PDT | | [...]
--- OUTSIDE RECORDS SUMMARY | ~2019-01-28 | XMS | Encounter Summary ---
Demographics + + + | Address | [address] | | | [place] [address] | + + + | Home Phone [...] Team Providers + +------+ + | Care Moto Mix Operator Name | Role | Phone | [...] | | Hector Krishna [address] | [place] [address] | | | | | Royal Hernandez | [phone] | | | | | Road Mailcode: | | | | | | [id number] | | | | | | [address] | | | | | | [place], [place] | | | | | | [address] | | | | | | [phone] | | | +--------+ + + + [...]
--- OUTSIDE RECORDS SUMMARY | ~2019-01-28 | XMS | Encounter Summary ---
Demographics + + + | Address | [address] | | | [place] [address] | + + + | Home Phone [...] Providers + +------+ + | Care Title Inspector Name | Role | Phone | + +------+ + | Gracie Mariano MD | PCP | Unavailable | + +------+ + Encounter Details +--------+ + + + + | Date | Type | Department | Care Team | Description | +--------+ + + + + | 11/23/ | Book Store Associate | Digestive Health | Harinder Felton, | Other specified | | 2012 | | Center at [facility] [address] | MD [address] | disorder of | | | | [address] | [place] [address] | peritoneum (Primary | | | | Mailcode: Center | [phone] | Dx) | | | | for Health and | | | | | | Healing, Building [address] | | | | | | [place], [place] | | | | | | [address] | | | | | | [phone] | | | +--------+ + + + [...] | | | | | | Institution: [facility] | | | | | | [facility], | | | | | | [facility], | | | | | | [place] | | | | | | [id number] AOutside | | | | | | Accession Number: | | | | | | [id number] | | | | | | Collection Date: | | | | | | 10/22/2011H&E | | | | | | 1Specimen | | | | | | BOutside Accession | | | | | | Number: [id number] | | | | | | Collection Date: | | | | | | 01/07/2012H&E | | | | | | 1 | | | | | | Additional Materials | | | | | | Received: | | | | | | (12/01/2012)Referring | | | | | | Institution: [facility] | | | | | | [facility], | | | | | | [place] [facility], | | | | | | [place] | | | | | | [id number] AOutside | | | | | | Accession Number: | | | | | | [id number] | | | | | | Collection Date: | | | | | | 10/22/2011lock | | | | | | 1Specimen BOutside | | | | | | Accession Number: | | | | | | [id number] | | | | | | Collection Date: | | | | | | 01/07/2012H&E | | | | | | 1 Final | | | | | | Pathologic | | | | | | Diagnosis:A: Ileoceca | | | | | | l valve, biopsy ([facility] | | | | | | [facility], | | | | | | [id number],10/22/2011): | | | | | | - Colonic mucosa | | | | | | with surface | | | | | | hyperplastic | | | | | | changes | | | | | | B: Colon, proximal | | | | | | right, biopsy ([facility] | | | | | | [facility], | | | | | | [id number],01/07/2012):- | | | | | | Colonic [...] | + + + + + | [facility] | [address] | [place] [address] | | | PATHOLOGY | [address] | | | + + + + + documented in this encounter Visit Diagnoses + + | Diagnosis | + + | Other specified disorder of peritoneum - Primary | + + documented in this encounter"
--- OUTSIDE RECORDS SUMMARY | ~2019-01-28 | XMS | Encounter Summary ---
Demographics + + + | Address | [address] | | | [place] [address] | + + + | Home Phone [...] Providers + +------+ + | Care Skin Lap Bonder Name | Role | Phone | + [...] the | | | | | | [address] | | | | | | [facility] | | | | | | [place], [place] | | | | | | [address] | | | +--------+ + + + [...]
--- OUTSIDE RECORDS SUMMARY | ~2019-01-28 | XMS | Encounter Summary ---
Demographics + + + | Address | [address] | | | [place] [address] | + + + | Home Phone [...] Team Providers + +------+ + | Care Winding Operator Name | Role | Phone | [...] | 2018 | Encounter | Lab at [facility] [address] | [address] [facility] | | | | | João Myrick [place] for | [facility] | | | | | Health and Healing, | [place], [place] | | | | | [address] [place] [address] | [address] | | | | | [place], [place] | [phone] | | | | | [address] | | | | | | [phone] | | | +--------+ + + + [...]
--- OUTSIDE RECORDS SUMMARY | ~2019-01-28 | XMS | Encounter Summary ---
Demographics + + + | Address | [address] | | | [place] [address] | + + + | Home Phone [...] Team Providers + +------+ + | Care Instructor Kindergarten Name | Role | Phone | + [...] | Orthopaedics at | Henrietta Aly, | Preoperative | | 2012 | Visit | [facility] [address] | [place] | clearance (Primary | | | | [facility] [address] | | Dx) | | | | Mailcode: PV430 | | | | | | [facility] | | | | | | [place], [place] | | | | | | [address] | | | | | | [phone] | | | +--------+---------+ + + + [...] + documented in this encounter Progress Notes Sheeba, Henrietta Lujan PA-C - 06/29/2013 11:18 AM [...]
--- OUTSIDE RECORDS SUMMARY | ~2019-01-28 | XMS | Encounter Summary ---
Demographics + + + | Address | [address] | | | [place] [address] | + + + | Home Phone [...] Team Providers + +------+ + | Care Travel Manager Name | Role | Phone | [...] thigh joint | [address] | Rd [place], | | | | | Ankylosing | [place], [place] | [place] | | | | | spondylitis | [address] | [address] | | | | | ([facility]) | Phone: | Phone: | | | | | Procedures | [phone] | [phone] | | | | | REQUEST TO | Fax: | Fax: | | | | | SURGERY | [phone] | [phone] | | | | | WIRE DRAWING DIE MAKER | | | | | | | NE TOTAL HIP | | | | | [...] | | | | REFERRING | Joseph [place], | | | | | | PROVIDER PER | [place] | | | | | | PT | [address] | | | | | | | Phone: | | | | | | | [phone] | | | | | | | Fax: | | | | | | | [phone] | +--------+--------+ + + + + Encounter [...] Ankylosing | | | | [facility] | [facility] | spondylitis (HCC) | | | | Mailcode: PV430 | [place], [place] | | | | | [facility] | [address] | | | | | [place], [place] | [phone] | | | | | [address] | | | | | | [phone] | | | +--------+---------+ + + + [...] coumadin now. Was also recently evaluated at [facility] in [facility] for confusion and the w/u was [...] gen nad cv effort easy Crouched gait Sevier bilat LE with 5/5 bilat ehl/apf/adf 2+ [...] through his PCP as he lives near [place]. I will send a note to see [...]
--- OUTSIDE RECORDS SUMMARY | ~2019-01-28 | XMS | Encounter Summary ---
Demographics + + + | Address | [address] | | | [place] [address] | + + + | Home Phone [...] Team Providers + +------+ + | Care Jewel Bearing Broacher Name | Role | Phone | + [...] Anna | | | | | Hector Linn [address] | [facility] | | | | | [address] | [place] [address] | | | | | [facility] Mailcode: | [phone] | | | | | [address] | | | | | | [address] | | | | | | [place], [place] | | | | | | [address] | | | | | | [phone] | | | +--------+ + + + [...]
--- OUTSIDE RECORDS SUMMARY | ~2019-01-28 | XMS | Encounter Summary ---
Demographics + + + | Address | [address] | | | [place] [address] | + + + | Home Phone [...] Team Providers + +------+ + | Care Watermelon Inspector Name | Role | Phone | [...] Anna | | | | | | [employer] | | | | | | [place], [place] | | | | | | [address] | | | +--------+ + + + [...]
--- OUTSIDE RECORDS SUMMARY | ~2019-01-28 | XMS | Encounter Summary ---
Demographics + + + | Address | [address] | | | [place] [address] | + + + | Home Phone [...] Providers + +------+ + | Care Digital Research Analyst Name | Role | Phone | [...] | | ([place] | | | | [facility] [address] | | pancreatitis) | | | | Mailcode: L223A | | | | | | [facility] | | | | | | [address] [place], | | | | | | [place] [address] | | | | | | [phone] | | | +--------+ + + + [...]
--- OUTSIDE RECORDS SUMMARY | ~2019-01-28 | XMS | Encounter Summary ---
Demographics + + + | Address | [address] | | | [place] [address] | + + + | Home Phone [...] Team Providers + +------+ + | Care Chief Telephone Operator Name | Role | Phone | [...] + + | 05/09/ | Hospital | [facility] [address] | Rosa M Smart MD | | | 2011 - | Encounter | [address] | [address] [facility] | | | | | STACEY MARINA | [address] | | | 05/12/ | | [place] [address] | [place], [place] | | | 2011 | | [phone] | [address] | | | | | | [phone] | | | | | | | [...] they suspect your wound is infected. Call [facility] Orthopedics first at [phone]. Diet Regular Regular diet- There are no [...] 2 weeks (or as previously scheduled). Call [phone] to confirm or schedule this appointment. PCP: As needed for any medical concerns not related to your surgery. Future Appointments Date & Time Provider Department Dept Phone Center 05/10/2012 2:15 PM Antony Patterson MD [facility] Radiation Medicine [phone] Rad Onc 05/19/2012 8:00 AM Maldonado [place] PA-C [facility] Orthopaedics & Rehabilitation [phone] [facility] Deep Vein Thrombosis (Leg Blood Clot) Prevention DVT prophylaxis: You are at increased risk of forming a blood clot following your joint replacement. - We have recommended that you take Coumadin following your surgery to decrease this risk. - See discharge prescriptions for administration instructions. - Call Orthopedic Clinic at [phone] if any persistent, localized swelling that does [...] and ask for the orthopaedic surgery resident employee relations advisor. Additional Post-Op Instructions / What to Expect [...] to dc to SNF BLANCA COX NP [facility] [address] [facility] [id number] Gifty Gage Md - 05/12/2012 6:23 AM [...] Discharge likely postoperative day 3. Will ask rn case manager hospice to assess for SNF placem ent. I performed a history and physical examination of the patient and discussed his management with the resident. I reviewed the resident s note and agree with the documented findings and plan of care. ROSA M SMART MD [facility] [address] Stacey [facility] [address] uff, Rosa M Paige MD - 0 [...] care. ROSA M SMART MD [facility] [address] [facility] [address] uRosa M coffey MD - 0 05/09/2012 [...] care. ROSA M SMART MD [facility] [address] Joseph Ibarra [facility] [address] documented in this enc ounter Plan of [...] MARQUAM | [address] | [place], [place] | | | JIO POINT OF CARE | [address] | [address] | | | TESTS | | | [...] ARGUETA | [address] | [place], [place] | | | BABAR TAMEZ OF [facility] | [address] | [address] | | | TESTS | | | [...] + + + + | [facility] DEPARTMENT | [address] | [place] [address] | | | PATHOLOGY | [address] [...] 60 - 99 mg/dL | [facility] - | | | GLUCOSE, | | [...] ARGUETA | [address] | [place], [place] | | | JOI POINT OF CARE | [address] | [address] | | | TESTS | | | [...] BARRYAM | [address] | [place], [place] | | | BABAR TAMEZ OF CARE | [address] | [address] | | | TESTS | | | [...] MARQUAM | [address] | [place], [place] | | | BABAR TAMEZ OF CARE | [address] | [address] | | | TESTS | | | [...] + + + | AUTUMN ARGUETA | [address] | [place], [place] | | | BABAR TAMEZ OF TIMUR | [address] | [address] | | | TESTS | | | [...] DEPARTMENT OF | [address] | [place] [address] | | | PATHOLOGY | [address] [...] + + + + | [facility] DEPARTMENT | [address] | [place] [address] | | | PATHOLOGY | [address] [...] 60 - 99 mg/dL | [facility] - | | | GLUCOSE, | | [...] ELLIE | [address] | [place], [place] | | | JOI POINT OF CARE | [address] | [address] | | | TESTS | | | [...] ARGUETA | [address] | [place], [place] | | | BABAR TAMEZ OF TIMUR | [facility] | [address] | | | TESTS | | | [...] - MARQUAM | [address] | [place], [place] | | | [facility] | [address] | [address] | | | TESTS | | | | + + + + + OPERATION RECORD (05/10/2012 11:16 AM PDT) + + | Transcriptions | + + | Rosa M Smart MD - 05/10/2012 7:13 AM PDT [id number] | | [id number] [address]NER[address]ORGE L | | [id number] Date: 05/09/2012 Attending Surgeon: Rosa M | | Melinda Smart M.D. Thermoscrew Operator(s): Maldonado [place] PA-C Please note, no | [...] | modifier is warranted. Rosa M Smart M.D.[facility] / [id number] / [id number] / [id number] /D: | | 05/09/2012T: 05/09/2012 | |ambulatory [...] | |traveled across the state to the [place] setting due to the complexity | |of [...] Smart M.D. | |TW / HS | |[id number] / [id number] / [id number] / | | | | | | [...] 60 - 99 mg/dL | [facility] - | | | GLUCOSE, | | [...] ARGUETA | [address] | [place], [place] | | | JOI POINT OF CARE | [address] | [address] | | | TESTS | | | [...] DEPARTMENT OF | [address] | [place] [address] | | | PATHOLOGY | [address] [...] DEPARTMENT OF | [address] | [place] [address] | | | PATHOLOGY | [address] [...] DEPARTMENT OF | [address] | [place] [address] | | | PATHOLOGY | [address] [...] ARGUETA | [address] | [place], [place] | | | JOI POINT OF [facility] | [facility] | [address] | | | TESTS | | | | + + + + + X-RAY PORTABLE PELVIS 1 VIEW (05/09/2012 5:08 PM PDT) + + + + + + | Component | Value | Ref Range | Performed | Pathologist | | | | | At | Signature | + + + + + + | X-RAY | EXAM: [place] PELVIS 1 VIEW, | | | | [...] + + + | AUTUMN [place] | [address] | [place], [place] | | | JOI POINT OF CARE | [address] | [address] | | | TESTS | | | [...]
--- OUTSIDE RECORDS SUMMARY | ~2019-01-28 | XMS | Encounter Summary ---
Demographics + + + | Address | [address] | | | [place] [address] | + + + | Home Phone [...] Team Providers + +------+ + | Care Pantry Goods Worker Name | Role | Phone | [...] | | | | | [address] [facility] | | | | | | [facility] | | | | | | Mailcode: PV450 | | | | | | Physicians [address] | | | | | | [place], [place] | | | | | | [address] | | | | | | [phone] | | | +--------+ + + + [...] +---------+ + + | [facility] DEPARTMENT OF | | | | | RADIOLOGY | | | | + +---------+ + + documented in this encounter Visit Diagnoses + + | Diagnosis | + + | Osteoarthrosis, hip Localized osteoarthrosis not specified whether primary or | | secondary, pelvic region and thigh | + + documented in this encounter"
--- OUTSIDE RECORDS SUMMARY | ~2019-01-28 | XMS | Encounter Summary ---
Demographics + + + | Address | [address] | | | [place] [address] | + + + | Home Phone [...] Team Providers + +------+ + | Care Materials Development Engineer Name | Role | Phone | [...] | | | & [address] | [address] [place], | | | | | | [address] | [place] | | | | | | [address] | [address] | | | | | | [place], | Phone: | | | | | | [place] [address] | [phone] | | | | | | Phone: | Fax: | | | | | | [phone] | [phone] | | | | | | Fax: | | | | | | | [phone] | | +--------+--------+ + + + + [...] | Spondylitis (HCC); | | | | [facility] | [facility] | Osteoarthrosis, Hip | | | | Mailcode: PV430 | [place], [place] | | | | | [facility] | [address] | | | | | [facility] [place] | [phone] | | | | | [address] | | | | | | [phone] | | | +--------+---------+ + + + [...] contacted to schedule. ROSA M SMART MD [facility] [address] [place] [address] Mailcode: Pv430 [facility]'s [facility] [...]
--- OUTSIDE RECORDS SUMMARY | ~2019-01-28 | XMS | Encounter Summary ---
Demographics + + + | Address | [address] | | | [place] [address] | + + + | Home Phone [...] Team Providers + +------+ + | Care Client Experience Specialist Name | Role | Phone | [...] at | | | | | | [facility] 4th Floor [address] | | | | | | [address] | | | | | | Code: [facility] | | | | | | for Health and | | | | | | [facility],4th Floor | | | | | | [place], [place] | | | | | | [address] | | | | | | [phone] | | | +--------+ + + + [...]
--- OUTSIDE RECORDS SUMMARY | ~2019-01-28 | XMS | Encounter Summary ---
Demographics + + + | Address | [address] | | | [place] [address] | + + + | Home Phone [...] | | 2013 | Visit | at [facility] [address] | [address] | ossification of bone | | | | [address] | [address] [place], | (Primary Dx) | | | | Meliza Ibarra | [place] [address] | | | | | [address], | [phone] | | | | | [place] [address] | | | | | | [phone] | | | +--------+---------+ + + + [...] is a 63 year old man from [place], [place], with a history of ankylosis spondylit [...] lasted a week Social History: Lives in [place], [place] near [place], [place] History Social History Marital Status: Single Spouse Name: N/A Number of Children: N/A Years of Education: N/A Occupational History 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 The patient lives in [place], [place], and is currently inpatient at [facility]. Vital Signs per inpatient chart. 5 minutes [...]
--- OUTSIDE RECORDS SUMMARY | ~2019-01-28 | XMS | Encounter Summary ---
Demographics + + + | Address | [address] | | | [place] [address] | + + + | Home Phone [...] Team Providers + +------+ + | Care Dump Grader Name | Role | Phone | [...] | | | 2013 | Event | [facility] | [address] [facility] | | | | | Admitting Desk | [facility] | | | | | Located on the 9 | [place], [place] | | | | | [address] | [address] | | | | | [facility] | [phone] | | | | | [place], [place] | | | | | | [address] | | | +--------+ + + + [...] | Periph | 3006--contact admin for | MANAGER BUSINESS CONTINUITY | Discharge | | eral | questions.); [...]
--- OUTSIDE RECORDS SUMMARY | ~2019-01-28 | XMS | Encounter Summary ---
Demographics + + + | Address | [address] | | | [place] [address] | + + + | Home Phone [...] Team Providers + +------+ + | Care Gum Rolling Machine Tender Name | Role | Phone [...] | | | is, hip Hip | [facility] | [address] | | | | | pain, | & Fractur | [address] [place], | | | | | bilateral | [address] | [place] | | | | | Ankylosing | [address] | [address] | | | | | spondylitis | [place], | Phone: | | | | | ([facility]) | [place] [address] | [phone] | | | | | Procedures | Phone: | Fax: | | | | | REQUEST TO | [phone] | [phone] | | | | | SURGERY | Fax: | | | | | | MICROECONOMICS PROFESSOR | [phone] | | | | | | MI [...] Taj | | | | | [facility] | [facility] | | | | | Mailcode: PV430 | [facility] [place] | | | | | Physician[facility] [address] | [address] | | | | | [place], [place] | [phone] | | | | | | | | | | | [phone] | | | +--------+ + + + [...]
--- OUTSIDE RECORDS SUMMARY | ~2019-01-28 | XMS | Encounter Summary ---
Demographics + + + | Address | [address] | | | [place] [address] | + + + | Home Phone [...] Team Providers + +------+ + | Care Electromechanical Equipment Tester Name | Role | Phone | [...] 05/09/ | Anesthesia | 6A Intra Op [facility] | Genie Bennett, | | | 2011 | Event | [facility] | MD [address] [facility] | | | | | Admitting Desk | [facility] | | | | | Located on the | [place], [place] | | | | | [address] | [address] | | | | | [facility] | [phone] | | | | | [place], [place] | | | | | | [address] | | | +--------+ + + + [...] Lewis RN | Kamilla Easton, | | Lesteri | | | RN | | on [...] Periph | | | RN | | elal | | | | | Line | [...] 11:29 | | | | | Starting 05/09/12 at 1129, | | AM PDT | [...] | ketamine (aka KETALAR) | Given | 05/09/20 | 10 mg [...] 11:46 | | | | | Starting Wed05/09/12 at 1032, | | AM PDT | [...] 2:20 | | | | | Starting Mon 12 at 1420, | | PM PDT | [...] | PRN, Starting Wed05/09/12 at | | AM PDT | | | | | 1050, Until Wed05/09/12 at 1514 | | | [...]
--- OUTSIDE RECORDS SUMMARY | ~2019-01-28 | XMS | Clinical Summary ---
Demographics + + + | Address | [address] | | | [place] [address] | + + + | Home Phone | | + + + | Preferred Language | Unknown | + + + | Marital Status | Unknown | + + + | Adventist Affiliation | 1041 | + + + | Race | Unknown | + + + | Ethnic Group | Unknown | + + + Author + + + | Author | [facility] | | | and [place] | + + + | Organization | [facility] | [...] Team Providers + +------+ + | Care Binding Bench Worker Name | Role | Phone | [...]
--- OUTSIDE RECORDS SUMMARY | ~2019-01-28 | XMS | Encounter Summary ---
Demographics + + + | Address | [address] | | | [place] [address] | + + + | Home Phone [...] Team Providers + +------+ + | Care Die Repairer Forging Name | Role | Phone | + [...] Taj | | | | | | [facility] [address] | | | | | | Mailcode: PV450 | | | | | | [address] | | | | | | [place], [place] | | | | | | [address] | | | | | | [phone] | | | +--------+ + + + [...] | | + +---------+ + + | [facility] DEPARTMENT OF | | | | | RADIOLOGY | | | | + +---------+ + + documented in this encounter Visit Diagnoses + + | Diagnosis | + + | (ankylosing spondylitis) (HCC) Ankylosing spondylitis | + + documented in this encounter"
--- OUTSIDE RECORDS SUMMARY | ~2019-01-28 | XMS | Encounter Summary ---
Demographics + + + | Address | [address] | | | [place] [address] | + + + | Home Phone [...] Team Providers + +------+ + | Care Welding Estimator Name | Role | Phone | + +------+ + | Gracie Mariano MD | PCP | Unavailable | + +------+ + Encounter Details +--------+------+ + + + | Date | Type | Department | Care Team | Description | +--------+------+ + + + | 05/16/ | Lab | Laboratory, | | (ankylosing | | 2012 | | Specimen Collection | | spondylitis) ([facility]) | | | | at [facility] 3rd Floor | | | | | | [address] | | | | | | [facility] | | | | | | [place], [place] | | | | | | [address] | | | | | | [phone] | | | +--------+------+ + + + [...] | e | 12:26 PM | spondylitis) ([facility]) | procedure are in the | | | | PDT | | results section. | + +--------+ + + + | SEDIMENTATION RATE | Routin | 05/16/2013 | (ankylosing | Results for this | | | e | 12:26 PM | spondylitis) ([facility]) | procedure are in the | | | | PDT | | results section. | + +--------+ + + + | HEPATITIS B SURFACE | Routin | 05/16/2013 | (ankylosing | Results for this | | AG, SERUM | e | 12:26 PM | spondylitis) ([facility]) | procedure are in the | | | | PDT | | results section. | + +--------+ + + + | HEPATITIS B CORE AB, | Routin | 05/16/2013 | (ankylosing | Results for this | | SERUM | e | 12:26 PM | spondylitis) ([facility]) | procedure are in the | | | | PDT | | results section. | + +--------+ + + + | HEPATITIS C VIRUS | Routin | 05/16/2013 | (ankylosing | Results for this | | W/CONFIRMATION | e | 12:26 PM | spondylitis) ([facility]) | procedure are in the | [...] + | [facility] | [address] | [place] [address] | | | [place] | | | [...] | + + + + + | [facility] - | [address] | [place] [address] | | | [place] | | | | + + + [...] + | [facility] | [address] | [place] [address] | | | [place] | | | [...] | + + + + + | [facility] | [address] | [place] [address] | | | SERVICES, NAY | GENNARO [...] - | | | | | | [place] | | + +---------+ + + + + + | Specimen | + + | Blood - Blood | + + + + + + + | Performing | Address | City/State/Zipcode | Phone Number | | Organization | | | | + + + + + | [facility] | [address] | [place] [address] | | | [place] | | | | + + + + + documented in this encounter Visit Diagnoses + + | Diagnosis | + + | (ankylosing spondylitis) (HCC) Ankylosing spondylitis | + + documented in this encounter"
--- OUTSIDE RECORDS SUMMARY | ~2019-01-28 | XMS | Encounter Summary ---
Demographics + + + | Address | [address] | | | [place] [address] | + + + | Home Phone [...] Team Providers + +------+ + | Care Estate And Trust Tax Principal Name | Role | Phone | + [...] | 2012 | | Center at [facility] [address] | [address] | Review (Immunization | | | | MARYLOU Myrick | [place] [address] | record ) | | | | Mailcode: Center | [phone] | | | | | for Health and | | | | | | [facility], [facility] 2 | | | | | | [place], [place] | | | | | | [address] | | | | | | [phone] | | | +--------+ + + + [...]
--- OUTSIDE RECORDS SUMMARY | ~2019-01-28 | XMS | Encounter Summary ---
Demographics + + + | Address | [address] | | | [place] [address] | + + + | Home Phone [...] Team Providers + +------+ + | Care Coin Rolling Machine Operator Name | Role | Phone [...] Anna | | | | | | [facility] | | | | | | [place], [place] | | | | | | [address] | | | +--------+ + + + [...]
--- OUTSIDE RECORDS SUMMARY | ~2019-01-28 | XMS | Encounter Summary ---
Demographics + + + | Address | [address] | | | [place] [address] | + + + | Home Phone [...] Team Providers + +------+ + | Care Toll Ticket Clerk Name | Role | Phone | [...] Taj | | | | | at [facility] | [facility] | | | | | [address] | [place] [address] | | | | | [facility] | | | | | | Mailcode: [id number] Taj | | | | | | Wilfrido Cisneros | | | | | | [facility], | | | | | | [place] [address] | | | | | | [phone] | | | +--------+ + + + [...]
--- OUTSIDE RECORDS SUMMARY | ~2019-01-28 | XMS | Encounter Summary ---
Demographics + + + | Address | [address] | | | [place] [address] | + + + | Home Phone [...] Team Providers + +------+ + | Care Um Rn Name | Role | Phone | [...] | | | | | | Road [place], [place] | | | | | | [address] | | | +--------+ + + + [...]
--- OUTSIDE RECORDS SUMMARY | ~2019-01-28 | XMS | Encounter Summary ---
Demographics + + + | Address | [address] | | | [place] [address] | + + + | Home Phone [...] Providers + +------+ + | Care Hide Inspector And Sorter Name | Role | Phone [...] | | 2013 | anned | [address] [facility] | | | | | | [facility] | | | | | | [place], [place] | | | | | | [address] | | | +--------+ + + + [...]
--- OUTSIDE RECORDS SUMMARY | ~2019-01-28 | XMS | Encounter Summary ---
Demographics + + + | Address | [address] | | | [place] [address] | + + + | Home Phone [...] Team Providers + +------+ + | Care Finance Analyst Name | Role | Phone | [...] Documentati | Rheumatology at | Taty Gamboa [facility] | Medication | | 2012 | on | Physicians Mariola | [facility] [place] | management | | | | [address] [facility] | [address] | | | | | [facility] | | | | | | Mailcode: OP09 | | | | | | Physicians Mariola, | | | | | | 4th Floor | | | | | | [facility] [place] | | | | | | [address] | | | | | | [phone] | | | +--------+ + + + [...]
--- OUTSIDE RECORDS SUMMARY | ~2019-01-28 | XMS | Encounter Summary ---
Demographics + + + | Address | [address] | | | [place] [address] | + + + | Home Phone [...] + + + | Author | [facility] [employer] | + + + | Organization | [facility] [employer] | + + + | Address | Unknown | + + + | Phone | Unavailable | + + + Support + + +---------+ + | Name | Relationship | Address | Phone | + + +---------+ + | Di Cisneros | ECON | Unknown | | + + +---------+ + Care Team Providers + +------+ + | Care Hot Plate Plywood Press Laborer Name | Role | Phone | + +------+ + | Scooby Mcclure MD | PCP | | + +------+ + Encounter Details +--------+ + + + + | Date | Type | Department | Care Team | Description | +--------+ + + + + | 11/09/ | Documentati | [facility]esar | [facility] | | | 2019 | on Only | Neuroscience Center | Neuroscience [address] | | | | | [address] | [address] | | | | | [place], [place] | [place] [address] | | | | | [address] | [phone] | | | | | [phone] | | | +--------+ + + + [...]
--- OUTSIDE RECORDS SUMMARY | ~2019-01-28 | XMS | Encounter Summary ---
Demographics + + + | Address | [address] | | | [place] [address] | + + + | Home Phone [...] Team Providers + +------+ + | Care Motorcycle Assembler Name | Role | Phone | + +------+ + | Gracie Mariano MD | PCP | Unavailable | + +------+ + Encounter Details +--------+ + + + + | Date | Type | Department | Care Team | Description | +--------+ + + + + | 06/22/ | Telephone | Digestive Health | Harinder Felton, | | | 2012 | | [place] [address] | [address] | | | | | MARYLOU Myrick | [place] [address] | | | | | Mailcode: [place] | [phone] | | | | | for Health and | | | | | | [place] [address] | | | | | | [place], [place] | | | | | | [address] | | | | | | [phone] | | | +--------+ + + + [...]
--- OUTSIDE RECORDS SUMMARY | ~2019-01-28 | XMS | Encounter Summary ---
Demographics + + + | Address | [address] | | | [place] [address] | + + + | Home Phone [...] Providers + +------+ + | Care Senior Systems Programmer Name | Role | Phone | [...] | | | | | | ([facility]ERLY [facility]) | MARYLOU Taj | | | | | | Procedures | [facility] | | | | | | PHYSICAL | Rd | | | | | | THERAPY | [place], [place] | | | | | | REFERRAL | [address] | | +--------+--------+ + + + + [...] Vang | Guidance | | | | [facility] [address] | [facility] [address] | | | | | Mailcode: [id number] | [place], [place] | | | | | Physician's Mariola | [address] | | | | | [place], [place] | [phone] | | | | | [address] | | | | | | [phone] | | | +--------+ + + + [...]
--- OUTSIDE RECORDS SUMMARY | ~2019-01-28 | XMS | Encounter Summary ---
Demographics + + + | Address | [address] | | | [place] [address] | + + + | Home Phone [...] Team Providers + +------+ + | Care Fast Food Restaurant Manager Name | Role | Phone | [...] | 2016 | Encounter | Lab at [facility] [address] | | error) | | | | João Myrick Mailcode: | | | | | | CH3G [facility] | | | | | | Health and Healing, | | | | | | 3rd Floor [place], | | | | | | [place] [address] | | | | | | [phone] | | | +--------+ + + + [...] | | + +---------+ + + | [facility] DEPARTMENT OF | | | | | RADIOLOGY | | | | + +---------+ + + documented in this encounter Visit Diagnoses + + | Diagnosis | + + | Right shoulder pain, unspecified chronicity | + + documented in this encounter"
--- OUTSIDE RECORDS SUMMARY | ~2019-01-28 | XMS | Encounter Summary ---
Demographics + + + | Address | [address] | | | [place] [address] | + + + | Home Phone [...] Team Providers + +------+ + | Care Urgent Care Physician Assistant Name | Role | Phone | [...] LEFT TOTAL | | 2011 | | [facility] | [address] [facility] | HIP ARTHROPLASTY | | | | Admitting Desk | [facility] | | | | | Located on the 9 | [place], [place] | | | | | floor [address] [facility] | [address] | | | | | [facility] | [phone] | | | | | [place], [place] | | | | | | [address] | | | +--------+---------+ + + + [...] they suspect your wound is infected. Call [facility] Orthopedics first at [phone]. Diet Regular Regular diet- There are no [...] 2 weeks (or as previously scheduled). Call [phone] to confirm or schedule this appointment. PCP: As needed for any medical concerns not related to your surgery. Future Appointments Date & Time Provider Department Dept Phone Center 05/10/2012 2:15 PM Antony Patterson MD [facility] Radiation Medicine [phone] Rad Onc 05/19/2012 8:00 AM Maldonado Ewing PA-C [facility] Orthopaedics & Rehabilitation [phone] Amy thornton Deep Vein Thrombosis (Leg Blood Clot) Prevention DVT prophylaxis: You are at increased risk of forming a blood clot following your joint replacement. - We have recommended that you take Coumadin following your surgery to decrease this risk. - See discharge prescriptions for administration instructions. - Call Orthopedic Clinic at [phone] if any persistent, localized swelling that does [...] and ask for the orthopaedic surgery resident professor of communication arts. Additional Post-Op Instructions / What to Expect [...] Cox NP - 05/12/2012 1:26 PM PDTOrtho STONE SANDBLASTER Progress Note 05/12/2012 1:26 PM Author BLANCA [...] to dc to SNF BLANCA COX NP [facility] [address] [facility] [address] Too Rosado, Gifty Hodge - 05/12/2012 6:23 [...] Discharge likely postoperative day 3. Will ask patient case manager to assess for SNF placem ent. I performed a history and physical examination of the patient and discussed his management with the resident. I reviewed the resident s note and agree with the documented findings and plan of care. ROSA M SMART MD [facility] [address] [place] [address] uRosa M coffey MD - 0 05/10/2012 [...] plan of care. ROSA M SMART MD [facility] [address]K [address] [facility] [address] [facility] [address] uerlinda, Rosa M Paige MD - 0 [...] plan of care. ROSA M SMART MD [facility] [address]K [address] [facility] [phone] documented in this enc ounter Plan of [...] MARQUAM | [address] | [place], [place] | | | BABAR TAME[place] OF TIMUR | [facility] | [address] | | | TESTS | | | [...] ARGUETA | [address] | [place], [place] | | | BABAR TAMEZ OF CARE | [address] | [address] | | | TESTS | | | [...] | + + + + + | [facility] DEPARTMENT | [address] | [place] [address] | | | PATHOLOGY | [address] [...] (H) | 60 - 99 mg/dL | [facility] - | | | GLUCOSE, | | [...] ARGUETA | [address] | [place], [place] | | | [place] | [address] | [address] | | | TESTS | | | [...] MARQUAM | [address] | [place], [place] | | | BABAR TAMEZ OF CARE | [address] | [address] | | | TESTS | | | [...] - ELLIE | [address] | [place], [place] | | | B[place] | [address] | [address] | | | TESTS | | | [...] ARGUETA | [address] | [place], [place] | | | BAB[place] OF [place] | [address] | [address] | | | TESTS | | | [...] + | [facility] DEPARTMENT OF | [address] [facility] | [place] [address] | | | PATHOLOGY | [address] [...] | + + + + + | [facility] DEPARTMENT | [address] | [place] [address] | | | PATHOLOGY | [address] [...] (H) | 60 - 99 mg/dL | [facility] - | | | GLUCOSE, | | [...] ARGUETA | [address] | [place], [place] | | | BABAR TAMEZ OF [facility] | [facility] | [address] | | | TESTS | | | [...] ELLIE | [address] | [place], [place] | | | BAB[place] OF [place] | [address] | [address] | | | TESTS | | | [...] + | AUTUMN Angelica ELLIE | [address] [facility] [address] | [place], [place] | | | JOI [facility] | [address] | [address] | | | TESTS | | | | + + + + + OPERATION RECORD (05/10/2012 11:16 AM PDT) + + | Transcriptions | + + | Rosa M Smart MD - 05/10/2012 7:13 AM PDT [id number] | | [id number] [address] | | [id number] Date: 05/09/2012 Attending Surgeon: Rosa M | | Melinda Smart M.D. Auditor Tax(s): Maldonado Ewing PA-C Please note, no | [...] The [place]travel[place] the [place] to the [place] setting due to the | | complexityof his situation. Overall surgical time was close to 3 times what | | wouldotherwise be expected for this type of procedure. There would also behigher | | anticipated rates of associated morbidity. For all of thesereasons, the complexity | | modifier is warranted. Rosa M Smart M.D.[facility] / [id number] / [id number] / [id number] /D: | | 05/09/2012T: 05/09/2012 | |ambulatory [...] 40. The patient | |traveled across the [facility] to the University setting due to the [...] M Smart M.D. | |TW / | |[id number] / [id number] / [id number] / | | | | | | [...] + + + | AUTUMN ARGUETA | [address] | [place], [place] | | | BABAR TAMEZ OF [facility] | [address] | [address] | | | TESTS | | | [...] DEPARTMENT OF | [address] | [place] [address] | | | PATHOLOGY | [address] [...] DEPARTMENT OF | [address] | [place] [address] | | | PATHOLOGY | [address] [...] DEPARTMENT OF | [address] | [place] [address] | | | PATHOLOGY | [address] [...] ARGUETA | [address] | [place], [place] | | | JOI [place]ENTON OF [facility] | [address] | [address] | | | TESTS | | | [...] ARGUETA | [address] | [place], [place] | | | JOI POINT OF CARE | [address] | [address] | | | TESTS | | | [...]
--- OUTSIDE RECORDS SUMMARY | ~2019-01-28 | XMS | Encounter Summary ---
Demographics + + + | Address | [address] | | | [place] [address] | + + + | Home Phone [...] Team Providers + +------+ + | Care Technology Assistant Name | Role | Phone | [...] | | | 2011 | Event | [facility] | MD [address] [facility] | | | | | Admitting Desk | [facility] | | | | | Located on the | [place], [place] | | | | | [address] | [address] | | | | | [facility] | [phone] | | | | | [place], [place] | | | | | | [address] | | | +--------+ + + + [...]
--- OUTSIDE RECORDS SUMMARY | ~2019-01-28 | XMS | Encounter Summary ---
Demographics + + + | Address | [address] | | | [place] [address] | + + + | Home Phone [...] Team Providers + +------+ + | Care Batter Mixer Helper Name | Role | Phone | + +------+ + | Ino Ace MD | PCP | Unavailable | + +------+ + Encounter Details +--------+ + + + + | Date | Type | Department | Care Team | Description | +--------+ + + + + | 05/23/ | Freezer Tunnel Operator | Orthopaedics at | Jorge Walker MD | Hip Pain (Primary | | 2009 | | [facility] [address] | [address] | Dx) | | | | [facility] | [facility] | | | | | Mailcode: [id number] | [place], [place] | | | | | Physician's Mariola | [address] | | | | | [place], [place] | [phone] | | | | | [address] | | | | | | [phone] | | | +--------+ + + + [...] | | + +---------+ + + | [facility] DEPARTMENT OF | | | | | RADIOLOGY | | | | + +---------+ + + documented in this encounter Visit Diagnoses + + | Diagnosis | + + | Hip pain - Primary Pain in joint, pelvic region and thigh | + + documented in this encounter"
--- OUTSIDE RECORDS SUMMARY | ~2019-01-28 | XMS | Encounter Summary ---
Demographics + + + | Address | [address] | | | [place] [address] | + + + | Home Phone [...] Team Providers + +------+ + | Care Tower Operator Name | Role | Phone | [...] | | | Ave Mailcode: [id number] | [place], [place] | | | | | [facility] | [address] | | | | | and | [phone] | | | | | Floor [place], [place] | | | | | | [address] | | | | | | [phone] | | | +--------+ + + + [...]
--- OUTSIDE RECORDS SUMMARY | ~2019-01-28 | XMS | Encounter Summary ---
Demographics + + + | Address | [address] | | | [place] [address] | + + + | Home Phone [...] Providers + +------+ + | Care Electrical Accessories Assembler Name | Role | Phone | [...] spondylitis | [address] | [address] [facility] | | | | | (HCC) | [address] | [address] | | | | | Heterotopic | [address] | Rd [place], | | | | | ossification | [place], [place] | [place] | | | | | of bone | [address] | [address] | | | | | Right | Phone: | Phone: | | | | | shoulder | [phone] | [phone] | | | | | pain Rt | Fax: | Fax: | | | | | shoulder | [phone] | [phone] | | | | | Procedures | [...] | | | Ave Mailcode: [id number] | [place], [place] | chronicity (Primary | | | | [place] [facility] | [address] | Dx); Shoulder | | | | and , | [phone] | arthritis; | | | | Floor [place], [place] | | Ankylosing | | | | [address] | | spondylitis (HCC) | | | | [phone] | | | +--------+---------+ + + + [...] mouth once daily., Disp: , Rfl: Called [facility] while patient was in the clinic, last [...] or concerns. He sees Dr. Mcclure at [facility] documented in this encou nter Plan of [...]
--- OUTSIDE RECORDS SUMMARY | ~2019-01-28 | XMS | Encounter Summary ---
Demographics + + + | Address | [address] | | | [place] [address] | + + + | Home Phone [...] Team Providers + +------+ + | Care Retirement Specialist Name | Role | Phone | [...] Patiño PA-C | | | | | [facility] | | | | | | Mailcode: [id number] | | | | | | Physician[facility]ola | | | | | | [place], [place] | | | | | | [address] | | | | | | [phone] | | | +--------+ + + + [...]
--- OUTSIDE RECORDS SUMMARY | ~2019-01-28 | XMS | Encounter Summary ---
Demographics + + + | Address | [address] | | | [place] [address] | + + + | Home Phone [...] Team Providers + +------+ + | Care Guest Laundry Attendant Name | Role | Phone | [...] (Primary | | | | [facility] [address] | | Dx) | | | | Mailcode: [id number] | | | | | | [facility] | | | | | | [place], [place] | | | | | | [address] | | | | | | [phone] | | | +--------+---------+ + + + [...]
--- OUTSIDE RECORDS SUMMARY | ~2019-01-28 | XMS | Encounter Summary ---
Demographics + + + | Address | [address] | | | [place] [address] | + + + | Home Phone [...] Team Providers + +------+ + | Care Ward Service Supervisor Name | Role | Phone [...] | | | is, hip Hip | [facility] | [address] | | | | | pain, | & Fractur | [address] [place], | | | | | bilateral | [address] | [place] | | | | | Ankylosing | [address] | [address] | | | | | spondylitis | A[facility]ON | Phone: | | | | | ([facility] | [place] [address] | [phone] | | | | | Procedures | Phone: | Fax: | | | | | REQUEST TO | [phone] | [phone] | | | | | SURGERY | Fax: | | | | | | CLOTHES SHAKER | [phone] | | | | | | MS TOTAL HIP | | | | | [...] - NO DIAGNOSIS | | | | [facility] | [facility] [facility] [address] | (Primary Dx) | | | | Mailcode: [id number] | [place], [place] | | | | | [facility] | [address] | | | | | [place], [place] | [phone] | | | | | [address] | | | | | | [phone] | | | +--------+---------+ + + + [...]
--- OUTSIDE RECORDS SUMMARY | ~2019-01-28 | XMS | Encounter Summary ---
Demographics + + + | Address | [address] | | | [place] [address] | + + + | Home Phone [...] + + + | Author | [facility] | + + + | Organization | [facility] | + + + | [...] Providers + +------+ + | Care Color Strainer Name | Role | Phone | + [...] | | 2013 | | Center at [facility] [address] | MD | Review ([facility] - | | | | [address]ARY[address] Myrick | | OUTSIDE RECORDS) | | | | Mailcode: [place] | | | | | | for Health and | | | | | | [facility] [address] | | | | | | [place], [place] | | | | | | [address] | | | | | | [phone] | | | +--------+ + + + [...]
--- OUTSIDE RECORDS SUMMARY | ~2019-01-28 | XMS | Encounter Summary ---
Demographics + + + | Address | [address] | | | [place] [address] | + + + | Home Phone [...] + + + | Author | [facility] | + + + | Organization | [facility] | + + + | Address | [...] Team Providers + +------+ + | Care Dampener Operator Name | Role | Phone | [...] Taj | | | | | | [facility] [address] | | | | | | Mailcode: [id number] | | | | | | [place]ett | | | | | | [place], [place] | | | | | | [address] | | | | | | [phone] | | | +--------+ + + + [...] | + +---------+ + + | [facility] DEPARTMENT OF | | | | | RADIOLOGY | | | | + +---------+ + + documented in this encounter Visit Diagnoses + + | Diagnosis | + + | (ankylosing spondylitis) (HCC) Ankylosing spondylitis | + + documented in this encounter"
--- OUTSIDE RECORDS SUMMARY | ~2019-01-28 | XMS | Encounter Summary ---
Demographics + + + | Address | [address] | | | [place] [address] | + + + | Home Phone [...] | + + +---------+ + | Nallely Csineros | ECON | Unknown | | + + +---------+ + | Jean Funk | ECON | Unknown | Unavailable | + + +---------+ + Care Team Providers + +------+ + | Care Peoplesoft Business Analyst Name | Role | Phone | [...] + + | 03/12/ | Hospital | [facility] [address] | Rosa M Smart MD | | | 2013 - | Encounter | [address] | [address] [facility] [address] | | | | | [place] | [address] | | | 03/16/ | | [place] [address] | [place], [place] | | | 2013 | | [phone] | [address] | | | | | | [phone] | | | | | | | [...] might be different fr om the original. [facility] [place] [facility] INPATIENT HOSPITAL DISCHARGE SUMMARY & INTERDISCIPLINARY INSTRUCTIONS Patient: Jorge L Cisneros CSN: [id number] Admission Date: 03/12/2014 Discharge Date: 03/16/2014 Attending Physician: Rosa M Smart MD PCP: Gracie Mariano MD Service: [facility] Orthopaedics & Rehabilitation Diagnoses [...] they suspect your wound is infected. Call [facility] Orthopedics first at [phone]. Activity Weight bear as tolerated on both [...] 10:45 AM Rosa M Smart Orthopaedics at [facility] [phone] Orthopedics PCP: As needed for any medical [...] our pleasure. Ender Phelps MD Pager # [phone] documented in this enc ounter Discharge Instructions Instructions Gifty Coffey RN - 03/16/2014Patient Education Materials: AVS paperw ork & dressing supplies. Provided patient with morphine, sennakot and miralax that were fill ed at our outpatient pharmacy. No personal belongings held in our safe. Pt. Did not have an y additional questions at this time. Patients transportation from [facility] transporting [facility] back home. Additional Instructions: Per Sarah Gee NP: Pt is to take three 1 mg warfarin tabs for a tot al of 3 mg warfarin only this evening of 03/16/2014. Patient will then resume taking his norm al dose of 6mg warfarin starting on . Patient education provided by this typewriter ribbon winder beti bowen these medication instructions. HANNA drain [...] home today Ender Phelps MD Pager # [phone] uerlinda, Rosa M Paige MD - 03/15/2014 [...] possibly tomorrow Ender Phelps MD Pager # [phone] I performed a history and physical examination of the patient and discussed his management with the resident. I reviewed the resident s note and agree with the documented findings and plan of care. ROSA M SMART MD [facility] [address] [place] [address] Rosa M Cárdenas MD - 0 03/14/2014 [...] d/w YULIANA. Ender Phelps MD Pager # [phone] I performed a history and physical examination of the patient and discussed his management with the resident. I reviewed the resident s note and agree with the documented findings and plan of care. ROSA M SMART MD [facility] [address] [place] [address] Ender Camara MD - 03/13/2014 8:08 AM [...] Dispo: pending Ender Phelps MD Pager # [phone] Rosa M Cárdenas MD - 03/12/2014 5:36 PM PDT [facility] ORTHOPAEDIC SURGERY POST OPERATIVE CHECK IDENTIFICATION: Patient: Jorge L Cisneros Author: ENEDR PHELPS MD Date & Time: 03/12/2014 5:36 [...] treatment tomorrow Ender Phelps MD Pager # [phone] I performed a history and physical examination of the patient and discussed his management with the resident. I reviewed the resident s note and agree with the documented findings and plan of care. ROSA M SMART MD [facility] [address] [place], [place] [id number] Karen Stephen MD - 03/12/2014 12:32 PM [...] MARQUAM | [address] | [place], [place] | | | JOI POINT OF CARE | [facility] | [address] | | | TESTS | | | [...] | + + + + + | [facility] | [address] | [place] [address] | | | SERVICES, CORE | GENNARO [...] | + + + + + | [facility] | [address] | [place] [address] | | | SERVICES, CORE | GENNARO [...] | | | LABORATORY | | | [facility] | | | SERVICES, | | | [...] [facility] | [address] | [place] [address] | | | SERVICES, CORE | GENNARO [...] (H) | 60 - 99 mg/dL | [facility] - | | | [...] ARGUETA | [address] | [place], [place] | | | JOI POINT OF CARE | [address] | [address] | | | TESTS | | | [...] MARQUAM | [address] | [place], [place] | | | BABAR TAMEZ OF CARE | [facility] | [address] | | | TESTS | | | [...] MARYAMILETAM | [address] | [place], [place] | | | BABAR TAMEZ OF [facility] | [address] | [address] | | | TESTS | | | [...] [facility] | [address] | [place] [address] | | | SERVICES, CORE | PARK [...] | | | LABORATORY | | | [facility] | | | SERVICES, | | | [...] | + + + + + | [facility] | [address] [facility] | [place] [address] | | | NAY KANG | GENNARO [...] [facility] | [address] | [place] [address] | | | SERVICESNAY | [address] [...] MARQUAM | [address] | [place], [place] | | | BABAR TAMEZ OF CARE | [facility] | [address] | | | TESTS | | | [...] (H) | 60 - 99 mg/dL | [facility] - | | | [...] MARQUAM | [address] | [place], [place] | | | JOI POINT OF CARE | [address] | [address] | | | TESTS | | | [...] ARGUETA | [address] | [place], [place] | | | BABAR TAMEZ OF [place] | [facility] | [address] | | | TESTS | | | [...] | + + + + + | [facility] | [address] | [place] [address] | | | SERVICES, CORE | GENNARO [...] | | | LABORATORY | | | [facility] | | | SERVICES, | | | [...] [facility] | [address] | [place] [address] | | | SERVICES, CORE | PARK [...] | + + + + + | [facility] | [address] | [place] [address] | | | SERVICES, CORE | GENNARO [...] (H) | 60 - 99 mg/dL | [facility] - | | | [...] ARGUETA | [address] | [place], [place] | | | BABAR TAMEZ OF CARE | [facility] | [address] | | | TESTS | | | [...] ELLIE | [address] | [place], [place] | | | BABAR TAMEZ OF [place] | [address] | [address] | | | TESTS | | | [...] - ELLIE | [address] | [place], [place] | | | BABAR TAMEZ OF TIM[place] | [facility] | [address] | | | TESTS | | | [...] ARGUETA | [address] | [place], [place] | | | JOI POINT OF CARE | [address] | [address] | | | TESTS | | | [...] [facility] | [address] | [place] [address] | | | SERVICES, CORE | PARK [...] [facility] | [address] | [place] [address] | | | SERVICES, CORE | PARK [...] | | | LABORATORY | | | [facility] | | | SERVICES, | | | [...] [facility] | [address] | [place] [address] | | | NAY KANG | GENNARO [...] ELLIE | [address] | [place], [place] | | | JOI POINT OF CARE | [address] | [address] | | | TESTS | | | [...] (H) | 60 - 99 mg/dL | [facility] - | | | [...] ARGUETA | [address] | [place], [place] | | | BABAR TAMEZ OF CARE | [address] | [address] | | | TESTS | | | | + + + + + X-RAY PORTABLE PELVIS 1 VIEW (03/12/2014 12:28 PM PDT) + + + + + + | Component | Value | Ref Range | Performed | Pathologist | | | | | At | Signature | + + + + + + | X-RAY | STUDY: [facility] PELVIS 1 VIEW | | | | [...] MARQUAM | [address] | [place], [place] | | | BABAR TAMEZ OF CARE | [address] | [address] | | | TESTS | | | [...] - ELLIE | [address] | [place], [place] | | | BABAR TAMEZ OF TIM[place] | [facility] | [address] | | | TESTS | | | [...] ELLIE | [address] | [place], [place] | | | JOI POINT OF CARE | [address] | [address] | | | TESTS | | | | + + + + + POTASSIUM (DIANE)LORETAT (03/12/2014 10:19 AM PDT) + +-------+ + [...] ELLIE | [address] | [place], [place] | | | BABAR TAMEZ OF TIM[place] | [facility] | [address] | | | TESTS | | | [...] ELLIE | [address] | [place], [place] | | | BABAR TAMEZ OF TIMUR | [facility] | [address] | | | TESTS | | | [...] ELLIE | [address] | [place], [place] | | | BABAR TAMEZ OF [facility] | [address] | [address] | | | TESTS | | | [...] ARGUETA | [address] | [place], [place] | | | BABAR TAMEZ OF TIM[place] | [facility] | [address] | | | TESTS | | | [...] ELLIE | [address] | [place], [place] | | | BABAR TAMEZ OF TIMUR | [facility] | [address] | | | TESTS | | | [...] + + + | AUTUMN [facility] | [address] | [place], [place] | | | JOI POINT OF [facility] | [address] | [address] | | | TESTS | | | [...] | + + + + + | [facility] | [address] | [place] [address] | | | NAY KANG | GENNARO [...] (H) | 60 - 99 mg/dL | [facility] - | | | [...] ARGUETA | [address] | [place], [place] | | | JOI POINT OF CARE | [address] | [address] | | | TESTS | | | [...]
--- OUTSIDE RECORDS SUMMARY | ~2019-01-28 | XMS | Clinical Summary ---
Demographics + + + | Address | [address] | | | [place] [address] | + + + | Home Phone [...] Providers + +------+ + | Care Field Laborer Name | Role | Phone | + +------+ + | Scooby Mcclure MD | PP | | + +------+ + Source Comments AUTUMN is fully live on both [facility] Ambulatory and [facility] InPatient.[facility] Allergies + + + [...] | | 2021 | - | | [id number]: Qty: 1 on | | | | | | / | | 05/09/2012 by Jorge Walker, | | | | | | /[id number] | | MD at [facility] REV LOC | | | | | [...] LOC | | | | | | /[id number] | | | | | | | | 366 | + +------+--------+ +--------+--------+--------+ | Polyethelene Neutral | | Left: | AYDE | | 01/19/ | 00-875 | | LinerImplanted: Qty: 1 on | | Hip | | | 2016 | - | | 05/09/2012 by Jorge Walker, | | | | | | 36 / | | MD at [facility] INPATIENT REV LOC | | | | | | /[id number] | | | | | | | | 117 | + +------+--------+ +--------+--------+--------+ | Trabecular Metal Femoral Stem | | Left: | AYDE | | 02/19/ | 00-786 | | 13mmImplanted: Qty: 1 on | | Hip | | | 2021 | - | | 05/09/2012 by Jorge Walker, | | | | | | 20 / | | MD at [facility] INPATIENT REV LOC | | | | | | /[id number] | | | | | | | | 333 | + +------+--------+ +--------+--------+--------+ | Femoral Head Ceramic | | Left: | AYDE | | 09/21/ | 00-877 | | 36mm/-3.5Implanted: Qty: 1 on | | Hip | | | 2021 | 5-036- | | 05/09/2012 by Jorge Walker | | | | | | 01 / | | MD Royal at [facility] INPATIENT REV | | | | | | /[id number] | | LOC | | | | | | 43 | + +------+--------+ +--------+--------+--------+ | Ayde Total Hip Cap | | | | | | | | ChargeImplanted: Qty: 1 on | | | | | | | | 05/09/2012 at [facility] INPATIENT | | | | | | | | REV LOC | | | | | | | + +------+--------+ +--------+--------+--------+ | Stem Tm Primary 13mm Extended | | Right: | AYDE | | 11/20/ | 00-786 | | - [id number]: Qty: 1 | | Hip | | | 2022 | 4-013- | | on 03/12/2014 by Denise, | | | | | | 20 / | | Jorge Paige MD at [facility] | | | | | | /[id number] | | INPATIENT REV LOC | | | | | | 757 | + +------+--------+ +--------+--------+--------+ | Femoral Head Biolox Delta | | Right: | AYDE | | 06/22/ | 00-7 | | 36mm -3.5mm - | | Hip | | | 2022 | 5-036- | | [id number]: Qty: 1 on | | | | | | / | | 03/12/2014 by Jorge Walker | | | | | | /[id number] | | MD Royal at [facility] INPATIENT REV | | | | | | 12 | | LOC | | | | | | | + +------+--------+ +--------+--------+--------+ | Tm Por St/Tm Cup/ Xlpe Ln/Cer | | | | | | | | HdImplanted: Qty: 1 on | | | | | | /98-00 | | 03/12/2014 at [facility] INPATIENT | | | | | | 01-426 | | REV LOC | | | | | | -03 / | + +------+--------+ +--------+--------+--------+ | Continuum Acetabular System | | Right: | AYDE | | 02/19/ | 00-875 | | Dome Hole Plug - | | Hip | | | 2023 | 7-000- | | [id number]: Qty: 1 on | | | | | | / | | 03/12/2014 by Jorge Walker | | | | | | /[id number] | | MD Royal at [facility] INPATIENT REV | | | | | [...] | | | | / | | [id number]: Qty: 1 on | | | | | | /90344 | | 03/12/2014 by Jorge Walker | | | | | | 427 | | MD Royal at [facility] INPATIENT REV | | | | | | | | LOC | | | | | | | + +------+--------+ +--------+--------+--------+ | Continuum Longevity Neutral | | Right: | AYDE | | 09/22/ | 8751-1 | | Felton Blackburn 36 X 58 - | | Hip | | | 2018 | 336 / | | [id number]: Qty: 1 on | | | | | | | | 03/12/2014 by Jorge Walker | | | | | | /[id number] | | MD Royal at [facility] INPATIENT REV | | | | | | 246 | | LOC | | | | | | | + +------+--------+ +--------+--------+--------+ | 50 Mm PlateImplanted: Qty: 1 | | N/A: | NANCI & | | | 04.615 | | on 02/18/2018 by Pablito Barroso | | Spine | NANCI | | | .601 / | | MD Soha at [facility] INPATIENT REV | | | DEPUY | | | / | | LOC | | | | | | | + +------+--------+ +--------+--------+--------+ | 240 Mm RodsImplanted: Qty: 2 | | N/A: | NANCI & | | | 04.615 | | on 02/18/2018 by Palbito Barroso | | Spine | NANCI | | | .655 / | | MD Soha at [facility] INPATIENT REV | | | DEPUY | [...] | | / | | System - [id number]: | | | | | | | | Qty: 1 on 02/18/2018 by | | | | | | | | Pablito Barroso MD at [facility] | | | | | | | [...] | | / | | System - [id number]: | | | | | | | | Qty: 1 on 02/18/2018 by | | | | | | | | Pablito Barroso MD at [facility] | | | | | | | [...] | | / | | System - [id number]: | | | | | | | | Qty: 1 on 02/18/2018 by | | | | | | | | Pablito Barroso MD at [facility] | | | | | | | [...] | | | | / | | [id number]: Qty: 2 on | | | | | | | | 02/18/2018 by Pablito Barroso | | | | | | | | MD Soha at [facility] INPATIENT REV | | | | | | | | LOC | | | | | | | + +------+--------+ +--------+--------+--------+ | Small ConnectorImplanted: | | N/A: | NANCI & | | | 04.615 | | Qty: 2 on 02/18/2018 by | | Bruce | NANCI | | | .538 / | | Pablito Barroso MD at [facility] | | | DEPUY | | | / | | INPATIENT REV LOC | | | | | | | + +------+--------+ +--------+--------+--------+ | Large ConnectorImplanted: | | N/A: | NANCI & | | | 04.615 | | Qty: 2 on 02/18/2018 by | | Bruce | NANCI | | | .565 / | | Pablito Barroso MD at [facility] | | | DEPUY | | | / | | INPATIENT REV LOC | | | | | | | + +------+--------+ +--------+--------+--------+ | Sealant Hemostatic Floseal | | N/A: | NGUYEN | | 07/20/ | [id number] | | Matrix Needle Free Adapter | | Spine | HEALTHCARE | | 2019 | 8 / | | 5ml - [id number]: | | | | | | /HA180 | | Qty: 1 on 02/18/2018 by | | | | | | 573 | | Pablito Barroso MD at [facility] | | | | | | | [...] | | | | | | | [id number] | | + +--------+ +--------+ + +--------+ | [place]ICAID [place] | OHP | xxxxxxxx | 03/23/20 | [phone] | [address] | Medica | | | PLUS | | 05-Pre | 6 | [address] | id | | | OPEN | | sent | | [place] | | | | CARD | | | | [id number] | | + +--------+ +--------+ + +--------+ | [facility] | [facility] | [phone] | | | | Agency [...] | 1950 | [address] | [place] [address] | | | blaire | | | 4 (Home) | | + +--------+ +--------+ + + | Jorge L Cisneros | Agency | Self | [birth year] | [address] | | | | | 1950 | | [place] [address] | | | | | | 4 (Home) | | + +--------+ +--------+ + + Advance Directives + + + + + | Type | Date Recorded | Patient | Explanation | | | | Nuclear Auxiliary Operator | | + + + + + | Advance | | | | | Directives and | | | | | Living Will | | | | + + + + + | Power of | | | | | Enamel Pulverizer | | | | + + + [...]
--- OUTSIDE RECORDS SUMMARY | ~2019-01-28 | XMS | Encounter Summary ---
Demographics + + + | Address | [address] | | | [place] [address] | + + + | Home Phone [...] Team Providers + +------+ + | Care Coal Cutter Name | Role | Phone | [...] | Rheumatology | Diagnoses | Purnima | [facility] | | | | | Ankylosing | MD Harinder | [address] | | | | | spondylitis | [address] | | | | | ([facility]) | [address] | [address] | | | | | Procedures | [facility] Mailcode: | | | | | CONSULT TO | [place] [address] | OP09 | | | | | RHEUMATOLOGY | Phone: | Physicians | | | | | | [phone] | [address] | | | | | | Fax: | Floor | | | | | | [phone] | [place], [place] | | | | | | | [address] | | | | | | | Phone: | | | | | | | [phone] | | | | | | | Fax: | | | | | | | [phone] | +--------+--------+ + + + + Encounter Details +--------+---------+ + + + | Date | Type | Department | Care Team | Description | +--------+---------+ + + + | 03/08/ | Office | Rheumatology at | Yulisa Hearn, | Ankylosing | | 2013 | Visit | Rosette Garnett | [address] | spondylitis (HCC) | | | | [address] [facility] | [address] | (Primary Dx) | | | | [facility] | [place] [address] | | | | | Mailcode: PV35 | [phone] | | | | | Rosette Garnett | | | | | | [place], [place] | | | | | | [address] | | | | | | [phone] | | | +--------+---------+ + + + [...] assessmen t and plan. Celina Soto M.D. [address] [place] [address] Mailcode: Pv35 [facility] [address] Yulisa Winchester MD - 5:30 PM PDT [...] se refer to patient queationnaire scanned in [facility] PMH: Past Medical History Diagnosis Date [...] Value Date ESR 18 05/16/2013 Colonoscopy 12/28/12 ([facility]) -ulcerated ICV (previous Bx with [...] bilateral hip arthrop athy and probable erosions [place] PELVIS 1 VIEW, 05/10/12 There has been [...] and plan YULISA HEARN MD RHEUMATOLOGY FELLOWS [facility] [facility] Mailcode: Pv35 [place] [address] documented in this en counter Plan of Treatment Not on filedocumented as of this encounter Visit Diagnoses + + | Diagnosis | + + | Ankylosing spondylitis (HCC) - Primary Ankylosing spondylitis | + + documented in this encounter
--- OUTSIDE RECORDS SUMMARY | ~2019-01-28 | XMS | Encounter Summary ---
Demographics + + + | Address | [address] | | | [place] [address] | + + + | Home Phone [...] Providers + +------+ + | Care Aircraft Charter Dispatcher Name | Role | Phone | + [...] | 2013 | anned | [address] [facility] | | | | | | [facility] | | | | | | [place], [place] | | | | | | [address] | | | +--------+ + + + [...]
--- OUTSIDE RECORDS SUMMARY | ~2019-01-28 | XMS | Encounter Summary ---
Demographics + + + | Address | [address] | | | [place] [address] | + + + | Home Phone [...] Team Providers + +------+ + | Care Horse Stud Worker Name | Role | Phone | [...] | | | | Provider Per | [address] | | | | | | Patient NO | Wilfrido Hernandez | | | | | | REFERRING | Joseph Mchugh, | | | | | | PROVIDER PER | [place] | | | | | | [place] | [address] | | | | | | | Phone: | | | | | | | [phone] | | | | | | | Fax: | | | | | | | [phone] | +--------+--------+ + + + + Encounter [...] | (Primary Dx); | | | | [facility] | [facility] [address] | ERRONEOUS ENCOUNTER | | | | Mailcode: PV430 | [place], [place] | - NO DIAGNOSIS | | | | [facility] | [address] | | | | | [place], [place] | [phone] | | | | | [address] | | | | | | [phone] | | | +--------+---------+ + + + [...]
--- OUTSIDE RECORDS SUMMARY | ~2019-01-28 | XMS | Encounter Summary ---
Demographics + + + | Address | [address] | | | [place] [address] | + + + | Home Phone [...] Providers + +------+ + | Care Passenger Representative Name | Role | Phone | [...] Visit | Medicine Clinic at | T, ENVIRONMENTAL ENGINEERING TECHNICIAN-C,MPH | Diabetes mellitus | | | | MPV | | screening; Other | | | | Stay [address] | | specified | | | | [facility] | | pre-operative | | | | Mailcode: [id number] | | examination; | | | | [facility] | | Ankylosing | | | | [address] [place], [place] | | spondylitis (HCC); | | | | [address] | | Localized | | | | [phone] | | osteoarthrosis not | | | [...] Admitting [facility] Surgery Check in Time: The OR (Operating Room) schedule is not finalized until the day before surgery. Someone from the OR (Operating Room) scheduling office at [facility] will call yo u with information regarding check in time for your surgery. If you have questions about th is, please call [phone] Going Home Your surgical team will decide [...] after office hours, call the [facility] general utility machine operator at [phone] and ask them to page your doc [...] surgery a couple of years ago at [facility] and it was canceled for "dental [...] and PMHX. Document will be scanned in [employer]. Current Medication List Name Sig CHOLECALCIFEROL (VITAMIN [...] kg/(m^2) Body mass index is 44.46 kg/(m^2). [facility] ROS Last edited 05/03/122002 by ALFREDITO [...] an echocardiogram ~7-8 years ago, possibly at [facility] in [facility], he reports it was found to [...] surgery a couple of years ago at [facility] and it was canceled for "dental issues." Per patient he had the dental problems taken care of a couple of years ago and he denies dental problems or pain. Within Defined Limits except as noted below arthritis Heme/Onc: Per patient DVT was in the left lower leg in August 2009. Per his friend, John Hyatt, and additional records in [facility] it was the right leg that had a DVT. The patient reports that he developed the blood clot after a long ride from [place] back to [place] after his previous hip surgery was canceled. [...] I sent him an inbox message in [employer] with the results of the patient's INR [...] further investigation and manageme nt. A. Acute OK within 7 days: no B. Unstable angina/Recent OK (7- 30 days): no C. Decompensated CHF: [...] yes Rate of cardiac , non fatal OK, non fatal cardiac arrest (RCRI) 0 risk factors - 0.4% 1 risk factors - 1%, 2 risk factors - 7%, 3 or >risk factors - 11% (may benefit from perioperative beta blockers) Risk Factor Recommendations: 1-2 risk factors- proceed with planned surgery with HR control or consider noninvasive testing if it will knife changer. Surgery Risk: Unavailable Patient-related risk: Estimated ASA [...] in August 2009. Per his friend, John Lakeland, and additional records in [facility] it was the right leg that had a DVT. The patient reports that he developed the blood clot after a long ride from [place] back to [place] after his previou s hip surgery was [...] contribute to this patient's care. ALFREDITO LARSEN,MPH [facility] [address] [facility] [phone] signed by ALFREDITO Mata,MPH at 05/03/2012 8:13 [...] [facility] | [address] | [place], [place] | | | [facility] | [address] | [address] | | | TESTS | | | [...] view image for the detailed interpretation from [employer] results. | CARDIOLOGY | + + + + + + + + | Performing | Address | City/State/Zipcode | Phone Number | | Organization | | | | + + + + + | [facility] | [address] | [place], [place] | | | CARDIOLOGY | [address] | [address] | | + + + + + [...] Way Lab) | [place] | | [facility] | REGIONAL | | [address] | LABORATORY | | [place] [address] | | + + + + + + + + | Performing | Address | City/State/Zipcode | Phone Number | | Organization | | | | + + + + + | [facility] | [address] | [place] [address] | | | LABORATORY | | | [...] | + + + + + | [facility] | [address] | [place] [address] | | | PATHOLOGY | [address] [...] | + + + + + | [facility] | [address] | [place] [address] | | | LAB-MICRO | | | [...] | + + + + + | [facility] | [address] | [place] [address] | | | PATHOLOGY | [address] [...] + | [place] [facility] | [address] [facility] | [place] [address] | | | PATHOLOGY | [address] [...] + | [facility] DEPARTMENT | [address] | [place] [address] | | | PATHOLOGY | [address] [...] | 60 - 99 mg/dL | [facility] | | | PLASMA | | | [...] | | | DEPARTMENT | | | [facility] | | | OF | | | [...] | + + + + + | [facility] | [address] | [place] [address] | | | PATHOLOGY | [address] [...]
--- OUTSIDE RECORDS SUMMARY | ~2019-01-28 | XMS | Encounter Summary ---
Demographics + + + | Address | [address] | | | [place] [address] | + + + | Home Phone [...] Team Providers + +------+ + | Care Rug Touch Up Painter Name | Role | Phone | [...] + + + + | 09/14/ | Air Lift Operator | [facility] | Harinder Felton, | | | 2013 | | Center at [facility] [address] | [address] | | | | | [address] | [place] [address] | | | | | Mailcode: [place] | [phone] | | | | | [facility] Health and | | | | | | Healing, [facility] [address] | | | | | | [place], [place] | | | | | | [address] | | | | | | [phone] | | | +--------+ + + + [...]
--- OUTSIDE RECORDS SUMMARY | ~2019-01-28 | XMS | Encounter Summary ---
Demographics + + + | Address | [address] | | | [place] [address] | + + + | Home Phone [...] Team Providers + +------+ + | Care Bill Poster Installer Name | Role | Phone | [...] | | | | [address] [facility] | [address] | | | | | [facility] | [place] [address] | | | | | Mailcode: PV35 | [phone] | | | | | [address] | | | | | | [place], [place] | | | | | | [address] | | | | | | [phone] | | | +--------+ + + + [...]
--- OUTSIDE RECORDS SUMMARY | ~2019-01-28 | XMS | Encounter Summary ---
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 | | | | Meliza Ibarra | | (Primary Dx) | | | | [place], | | | | | | [place] [address] | | | | | | [phone] | | | +--------+---------+ + + + [...] to con tact us with further questions: [phone] documented in this encounter Progress Notes Antony [...] is a 61 year old male, from [place], [place], with a history of ankylosis spondyl [...] ringers IV 100 mL/hr Intravenous CONTINUOUS Maldonado Ewnig PA-C 100 mL/hr at 05/10/12 0142 levothyroxine tablet 50 mcg 50 mcg Oral DAILY Kenneth Chacon MD 50 mcg at 05/10 0631 lidocaine (aka LIDODERM) 5 %(700 mg/patch) patch 2 Patch 2 Patch Transdermal Q24H Kimb erly Rich, ADAPTED PHYSICAL EDUCATION SPECIALIST lisinopril (aka PRINIVIL) tablet 10 mg 10 [...] g 17 g Oral DAILY Opal Gerard, ADAPTED PHYSICAL EDUCATION SPECIALIST 17 g at 05/10/12 1201 quiNINE sulfate (aka QUALAQUIN) capsule 324 mg 324 mg Oral BID PRN SORAYA Finney senna-docusate (aka SENOKOT S) 8.6-50 mg 1 Tab 1 Tab Oral BID Opal Rich, ADAPTED PHYSICAL EDUCATION SPECIALIST 1 Ta b at 05/10/12 1201 warfarin [...] IMAGING: X-RAY PORTABLE PELVIS 1 VIEW: EXAM: IL PELVIS 1 VIEW, 05/10/12 COMPARISON: 12/15/2010 HISTORY: [...]
--- OUTSIDE RECORDS SUMMARY | ~2019-01-28 | XMS | Encounter Summary ---
Demographics + + + | Address | [address] | | | [place] [address] | + + + | Home Phone [...] Team Providers + +------+ + | Care International Marketing Intern Name | Role | Phone | [...] 2012 | | Center at [facility] [address] | [address] | Review (Immunization | | | | [address] | [place] [address] | record ) | | | | Mailcode: Center | [phone] | | | | | for Health and | | | | | | [facility], [facility] [address] | | | | | | [place], [place] | | | | | | [address] | | | | | | [phone] | | | +--------+ + + + [...]
--- OUTSIDE RECORDS SUMMARY | ~2019-01-28 | XMS | Encounter Summary ---
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
--- OUTSIDE RECORDS SUMMARY | ~2019-01-28 | XMS | Encounter Summary ---
Demographics + + + | Address | [address] | | | [place] [address] | + + + | Home Phone [...] Team Providers + +------+ + | Care Culture Media Laboratory Assistant Name | Role | Phone | + +------+ + | Scooby Mcclure MD | PCP | | + +------+ + Encounter Details +--------+ + + + + | Date | Type | Department | Care Team | Description | +--------+ + + + + | 04/06/ | Hospital | Radiology/Imaging | Arline Paige, | | | 2018 | Encounter | Lab at [facility] [address] | [place] [address] | | | | | [address] [facility] | [address] [place], [place] | | | | | Health and Healing, | [address] | | | | | [address] [place] [address] | [phone] | | | | | [place], [place] | | | | | | [address] | | | | | | [phone] | | | +--------+ + + + [...]
--- OUTSIDE RECORDS SUMMARY | ~2019-01-28 | XMS | Encounter Summary ---
Demographics + + + | Address | [address] | | | [place] [address] | + + + | Home Phone [...] Providers + +------+ + | Care Retail Bakery Manager Name | Role | Phone | + +------+ + | Scooby Mcclure MD | PCP | | + +------+ + Encounter Details +--------+ + + + + | Date | Type | Department | Care Team | Description | +--------+ + + + + | 11/27/ | Document-Sc | UNKNOWN DEPARTMENT | Other, Faculty | | | 2014 | anned | [address] [facility] | [phone] | | | | | [facility] | | | | | | [place], [place] | | | | | | [address] | | | +--------+ + + + [...]
--- OUTSIDE RECORDS SUMMARY | 2019-01-28 16:00 | XMS ---
PreManage Notification: JOSE RAFAEL [place]ALKER Security Inside Technical Sales Representative Events No recent Security Events currently on file CRITERIA MET - Group Notification - [facility] Delia Melvin Baseball Coach/Control Operator Flow Coat 06/26/2016-Current PHONE: [phone] QI HAIR [facility] 10/31/2018-Current PHONE: Unknown Delia Melvin Primary Care 06/26/2016-Current PHONE: [phone] [facility] Case or Administrative Office Clerk 01/26/2017-Current HEALTH AND HOSPICE PHONE: [phone] DR QI HAIR Primary Care 02/20/2017-Current PHONE: [phone] [facility] has no Care Guidelines for this patient. Care History Medical/Surgical 10/31/2018 [facility] \T\middot;\T\nbsp; PATIENT IS A [facility] MEMBER. \T\middot;\T\nbsp; PLEASE REFER PATIENT TO [facility] FOR NON EMERGENT MEDICAL NEEDS. \T\middot;\ T\nbsp; [facility] CAN SEE PATIENTS SAME DAY FOR APTS IF PATIENT CALLS FIRST THING IN THE MORNING. E.D. VISIT COUNT (12 MO.) 1 [facility], [address] TOTAL 5 NOTE: Visits indicate total known visits. ED/UCC VISIT TRACKING (12 MO.) 01/28/2019 15:58 [facility] TYPE: Emergency COMPLAINT: - CHEST PAIN 11/03/2018 11:09 [facility] TYPE: Emergency COMPLAINT: - L ARM NUMBNESS DIAGNOSES: - Allergy status to other drugs, medicaments and biological substances status - Essential (primary) hypertension - Personal history of transient ischemic attack (TIA), and cerebral infarction without residual deficits - Allergy status to sulfonamides status - Type 2 diabetes mellitus without complications - Allergy status to other antibiotic agents status - Other intermediate frame tender (current) drug therapy - Allergy status to penicillin - prison (current) use of insulin - Hypothyroidism, unspecified - Allergy status to narcotic agent status 10/30/2018 15:43 [facility] TYPE: Emergency COMPLAINT: - WEAKNESS/CONFUSION 02/15/2018 15:32 [facility] TYPE: Emergency DIAGNOSES: 29955. Trauma [id number]. Unspecified displaced fracture of second cervical vertebra, initial encounter for closed fracture 02/15/2018 11:10 [facility] TYPE: Emergency COMPLAINT: - FALL DIAGNOSES: - [...] 2 diabetes mellitus without complications - Other prison (current) drug therapy - Cervicalgia - intermediate card tender (current) use of anticoagulants - Allergy status to sulfonamides status INPATIENT VISIT TRACKING (12 MO.) 10/30/2018 15:44 [facility] TYPE: Observation COMPLAINT: - PNEUMONIA DIAGNOSES: - Hypothyroidism, unspecified - prison (current) use of anticoagulants - Type 2 diabetes mellitus without complications - Altered mental status, unspecified - Antiphospholipid syndrome - Personal history of transient ischemic attack (TIA), and cerebral infarction without residual deficits - Other prison (current) drug therapy - Pneumonia, unspecified organism - Primary osteoarthritis, left shoulder - Weakness - Essential (primary) hypertension - Other chronic postprocedural pain - prison (current) use of insulin 02/15/2018 15:32 [facility] TYPE: Surgery DIAGNOSES: 72702. Unspecified displaced fracture of second cervical vertebra, initial encounter for closed fracture [email or web address]
--- NOTE | 2019-01-28 21:35 | EKG ---
[facility] [address] [facility] [place] [address] Signed Sinus tachycardia Possible Left atrial enlargement Left axis deviation Incomplete right bundle branch block Possible Anteroseptal infarct , age undetermined , new compared to previous EKGs. Inferior infarct (Noted on 02/15/2018 EKG) Abnormal ECG Confirmed by NEW AKINS MD ([id number]) on 01/28/2019 9:35:41 PM Electronically Signed By: NEW AKINS MD 01/28/19 2135 PATIENT NAME: JOSE RAFAEL WALKER SIDNEY Electrocardiogram DATE OF : 50 PHYSICIAN: NEW AKINS MD REPORT #: [id number] REPORT IS CONFIDENTIAL AND NOT TO BE RELEASED WITHOUT AUTHORIZATION
== END 2019-01-28 19:40 | disposition home or self-care (01) ==
LOC: ED 15:55
DX: R07.2 Precordial pain (principal); I10 Essential (primary) hypertension; E11.9 Type 2 diabetes mellitus without complications; E03.9 Hypothyroidism, unspecified; Z86.73 Personal history of transient ischemic attack (TIA), and cerebral infarction without residual deficits; Z88.0 Allergy status to penicillin; Z88.2 Allergy status to sulfonamides; Z88.5 Allergy status to narcotic agent; Z88.8 Allergy status to other drugs, medicaments and biological substances; Z88.1 Allergy status to other antibiotic agents; Z79.4 Long term (current) use of insulin; Z79.899 Other long term (current) drug therapy
CPT/HCPCS: 71260; 80053; 83735; 84484; 85025; 85610; 93005; 93010; 99285-25

== ENCOUNTER 2019-08-03 21:21 | Emergency (ER) | payer MEDICARE, OTHER ==
[~2019-08-03] VITALS: Ht 175.3 cm; Wt 107.5 kg
--- OUTSIDE RECORDS SUMMARY | ~2019-08-03 | XMS | Encounter Summary ---
Demographics + + + | Address | [address] | | | [place] [address] | + + + | Home Phone | | + + + | Preferred Language | Unknown | + + + | Marital Status | Single | + + + | Restorationism Affiliation | BAP | + + + | Race | or | + + + | Ethnic Group | Not or | + + + Author + + + | Author | [facility] | + + + | Organization | [facility] | + + + | Address | Unknown | + + + | Phone | Unavailable | + + + Support + + +---------+ + | Name | Relationship | Address | Phone | + + +---------+ + | Nallely Cisneros | ECON | Unknown | | + + +---------+ + | Jean Funk | ECON | Unknown | Unavailable | + + +---------+ + Care Team Providers + +------+ + | Care Crystal Attacher Name | Role | Phone | + +------+ + | Gracie Mariano MD | PCP | | + +------+ + Reason for Visit AUTH/CERT +--------+--------+ + + + + | Status | Reason | Specialty | Diagnoses / | Referred By | Referred To | | | | | Procedures | Contact | Contact | +--------+--------+ + + + + | Closed | | | | | | +--------+--------+ + + + + Encounter Details +--------+ + + + + | Date | Type | Department | Care Team | Description | +--------+ + + + + | 03/13/ | Anesthesia | 6A Intra Op 3181 | Bella Lion MD | | | 2012 | Event | [facility] | [address] | | | | | [facility] | [facility] [place], | | | | | Hospital Admitting | [place] [address] | | | | | Desk Located on the | [phone] | | | | | 9th floor | | | | | | [place], [place] | [place], | | | | | [address] | PASTRY SOUS CHEF [address] | | | | | | [address] | | | | | | [place], [place] | | | | | | [address] | | | | | | [phone] | | | | | | | | +--------+ + + + + Anesthesia Record + + + + + | Procedure Name | Responsible | Anesthesia Start | Anesthesia Stop Time | | | Anesthesiologist | Time | | + + + + + | LAPAROSCOPIC | Bella Lion MD | 03/13/13 0830 | 03/13/13 1250 | | CHOLECYSTECTOMY, | | | | | CONVERTED TOOPEN | | | | | INTRAOPERATIVE | | | | | CHOLANGIOGRAM, (N/A | | | | | ) | | | | + + + + + +----+---+ + + | Da | T | Event | Comment | | te | i | | | | | m | | | | | e | | | +----+---+ + + | 07 | 0 | Eq Check | Anesthesia machine checked Equipment verified | | /2 | 8 | | | | 2/ | 0 | | | | 20 | 2 | | | | 13 | | | | +----+---+ + + | | 0 | | | | | 8 | | | | | 1 | | | | | 5 | | | +----+---+ + + | | 0 | Pt. Check | Prior to anesthesia start, pt. Identified, examined, chart | | | 8 | | reviewed, PARQ held, anesthetic plan made or approved by | | | 1 | | attending anesthesiologist. NPO status confirmed as appropriate | | | 5 | | for procedure Preoperative evaluation: unchanged | +----+---+ + + | | 0 | An Start | | | | 8 | | | | | 3 | | | | | 0 | | | +----+---+ + + | | 0 | An Start | | | | 8 | Data | | | | 3 | | | | | 0 | | | +----+---+ + + | | 0 | Vitals | Monitors applied Vital signs checked Patient ready for anesthesia | | | 8 | Checked | | | | 3 | | | | | 7 | | | +----+---+ + + | | 0 | Std. Airway | | | | 8 | Mgt. | | | | 4 | | | | | 0 | | | +----+---+ + + | | 0 | Ready | | | | 8 | | | | | 4 | | | | | 2 | | | +----+---+ + + | | 0 | Abx | | | | 9 | Administere | | | | 0 | d | | | | 1 | | | +----+---+ + + | | 0 | Incision | | | | 9 | | | | | 1 | | | | | 5 | | | +----+---+ + + | | 1 | Surgery end | | | | 2 | | | | | 3 | | | | | 4 | | | +----+---+ + + | | 1 | An Extubate | Neuromuscular function Intact. Pharynx suctioned. Patient obeys | | | 2 | | commands. Adequate pulmonary mechanics. | | | 3 | | | | | 9 | | | +----+---+ + + | | 1 | an stop | | | | 2 | data | | | | 3 | | | | | 9 | | | +----+---+ + + | | 1 | Anesthesia | | | | 2 | End | | | | 5 | | | | | 0 | | | +----+---+ + + +------+ | Meds | +------+ + + + | Name | Total | + + + | ePHEDrine | 25 mg | + + + | ceFAZolin | 2,000 mg | + + + | midazolam | 2 mg | + + + | fentaNYL | 250 mcg | + + + | lidocaine 2% | 40 mg | + + + | propofol | 170 mg | + + + | succinylcholine | 100 mg | + + + | rocuronium | 70 mg | + + + | HYDROmorphone | 4 mg | + + + | ketamine | 60 mg | + + + | labetalol | 5 mg | + + + | calcium gluconate | 500 mg | + + + | glucagon | 1 mg | + + + | ondansetron | 4 mg | + + + | insulin regular | 2 Units | + + + | neostigmine | 5 mg | + + + | glycopyrrolate | 0.8 mg | + + + | LR | 1,500 mL | + + + | NS | 2,000 mL | + + + + + | Name | + + | O2 FR Avance (Total Liters) | + + | Insp Abner | + + | Et Abner | + + | Insp N2O % | + + + + | No blood administrations on file. | + + +--------+ + + + | Type | Details | Placement | Removal | +--------+ + + + | RETIRE | 03/12/13; 1727; 03/19/13; 1944; | 03/12/131727 by | 03/19/131944 by | | D - | No; 22; Left; Forearm; Lidocaine; | Madai Vallejo RN | Discontinued After | | Periph | No; Positive | | Discharge | | eral | | | | | Line | | | | +--------+ + + + | RETIRE | 03/13/13; 08; 06/10/17 | 03/13/13 0841 by | 06/10/17 162 by | | D - | (Automatic cleanup per RA | [place], | Discontinued After | | Periph | 3006--contact admin for | PASTRY SOUS CHEF | Discharge | | eral | questions.); 162 (Automatic | | | | Line | cleanup per RA 3006--contact | | | | | admin for questions.); No; 16; | | | | | Right; Hand; None; No; Positive | | | +--------+ + + + | RETIRE | 03/13/13; 0854; 03/14/13; 1200; | 03/13/13 0854 by | 03/14/13 1200 by | | D - | No; Chepe; 16FR | Joby Ann | Clemente Butler RN | | [facility] | | | | | y Cath | | | | | | | | | | Placem | | | | | ent | | | | | (Viky | | | | | & Cath | | | | | Care | | | | | Daily | | | | | and Q | | | | | BM) | | | | +--------+ + + + | RETIRE | 03/13/13; 0915; No; midline; | 03/13/13 0915 by | 06/10/17 162 by | | D - | abdomen; 06/10/17 (Automatic | Joby Ann | Discontinued After | | Incisi | cleanup per RA 3006--contact | | Discharge | | on | admin for questions.); 1622 | | | | | (Automatic cleanup per RA | | | | | 3006--contact admin for | | | | | questions.) | | | +--------+ + + + documented in this encounter Social History + + + +--------+ + [...] | | | + +---+---+---+ + + +---------+ + | Alcohol Use | Drinks/Week | oz/Week | Comments | + + +---------+ + | No | | | | + + +---------+ + + + + | Sex Assigned at | Date Recorded | | | | + + + | Not on file | | + + + + + + + | Job Start Date | Occupation | Industry | + + + + | Not on file | Not on file | Not on file | + + + + + + + + | Travel History | Travel Start | Travel End | + + + + + + | No recent travel history available. | + + documented as of this encounter Plan of Treatment Not on filedocumented as of this encounter Visit Diagnoses Not on filedocumented in this encounter Administered Medications + +--------+ +--------+------+------+ | Medication Order | MAR | Action | Dose | Rate | Site | | | Action | Date | | | | + +--------+ +--------+------+------+ | calcium gluconate 10 % (100 | Given | 03/13/20 | 500 mg | | | | mg/mL) injection intravenous, | | 13 10:56 | | | | | INTRAPROCEDURE PRN, Starting Mon | | AM PDT | | | | | 03/13/13 at 1056, Until Mon | | | | | | | 03/13/13 at 1239 | | | | | | + +--------+ +--------+------+------+ +---+---+ | | | +---+---+ + +-------+ + +---+---+ | ceFAZolin (aka ANCEF) injection | Given | 03/13/20 | 2,000 mg | | | | intravenous, INTRAPROCEDURE | | 13 9:01 | | | | | PRN, Starting Mon 13 at | | AM PDT | | | | | 0901, Until Wed03/13/13 at 1239 | | | | | | + +-------+ + +---+---+ +---+---+ | | | +---+---+ + +-------+ +-------+---+---+ | ePHEDrine injection | Given | 03/13/20 | 10 mg | | | | intravenous, INTRAPROCEDURE PRN, | | 13 8:54 | | | | | Starting Wed03/13/13 at 0852, | | AM PDT | | | | | Until Wed03/13/13 at 1239 | | | | | | + +-------+ +-------+---+---+ +-------+ +-------+---+---+ | Given | 03/13/20 | 15 mg | | | | | 13 8:52 | | | | | | AM PDT | | | | +-------+ +-------+---+---+ +---+---+ | | | +---+---+ + +-------+ +--------+---+---+ | fentaNYL citrate (PF) (aka | Given | 03/13/20 | 50 mcg | | | | SUBLIMAZE) injection | | 13 9:29 | | | | | INTRAPROCEDURE PRN, Starting Mon | | AM PDT | | | | | 03/13/13 at 0837, Until Mon | | | | | | | 03/13/13 at 1239, sedation | | | | | | + +-------+ +--------+---+---+ +-------+ +---------+---+---+ | Given | 03/13/20 | 50 mcg | | | | | 13 9:25 | | | | | | AM PDT | | | | +-------+ +---------+---+---+ | Given | 03/13/20 | 150 mcg | | | | | 13 8:37 | | | | | | AM PDT | | | | +-------+ +---------+---+---+ +---+---+ | | | +---+---+ + +-------+ +------+---+---+ | glucagon (aka GLUCAGEN) | Given | 03/13/20 | 1 mg | | | | injection INTRAPROCEDURE PRN, | | 13 11:21 | | | | | Starting Wed03/13/13 at 1121, | | AM PDT | | | | | Until Wed03/13/13 at 1239 | | | | | | + +-------+ +------+---+---+ +---+---+ | | | +---+---+ + +-------+ +--------+---+---+ | glycopyrrolate (aka ROBMIKALA) | Given | 03/13/20 | 0.8 mg | | | | injection INTRAPROCEDURE PRN, | | 13 12:27 | | | | | Starting Wed03/13/13 at 1227, | | PM PDT | | | | | Until Wed03/13/13 at 1239 | | | | | | + +-------+ +--------+---+---+ +---+---+ | | | +---+---+ + +-------+ +------+---+---+ | HYDROmorphone (aka DILAUDID) | Given | 03/13/20 | 1 mg | | | | injection INTRAPROCEDURE PRN, | | 13 12:49 | | | | | Starting 03/13/13 at 0932, | | PM PDT | | | | | Until 03/13/13 at 1239, | | | | | | | sedation | | | | | | + +-------+ +------+---+---+ +-------+ +--------+---+---+ | Given | 03/13/20 | 1 mg | | | | | 13 12:47 | | | | | | PM PDT | | | | +-------+ +--------+---+---+ | Given | 03/13/20 | 0.8 mg | | | | | 13 12:39 | | | | | | PM PDT | | | | +-------+ +--------+---+---+ +---+---+ | | | +---+---+ + +-------+ +---------+---+---+ | insulin regular bolus from | Given | 03/13/20 | 2 Units | | | | continuous infusion | | 13 12:04 | | | | | INTRAPROCEDURE PRN, Starting Mon | | PM PDT | | | | | 03/13/13 at 1204, Until Mon | | | | | | | 03/13/13 at 1239 | | | | | | + +-------+ +---------+---+---+ +---+---+ | | | +---+---+ + +-------+ +-------+---+---+ | ketamine (stu KILLIAN) | Given | 03/13/20 | 10 mg | | | | injection INTRAPROCEDURE PRN, | | 13 12:53 | | | | | Starting Wed03/13/13 at 0950, | | PM PDT | | | | | Until Wed03/13/13 at 1239, | | | | | | | sedation | | | | | | + +-------+ +-------+---+---+ +-------+ +-------+---+---+ | Given | 03/13/20 | 50 mg | | | | | 13 9:50 | | | | | | AM PDT | | | | +-------+ +-------+---+---+ +---+---+ | | | +---+---+ + +-------+ +------+---+---+ | labetalol (aka TRANDATE) IV | Given | 03/13/20 | 5 mg | | | | injection intravenous, | | 13 9:43 | | | | | INTRAPROCEDURE PRN, Starting Mon | | AM PDT | | | | | 03/13/13 at 0943, Until Mon | | | | | | | 03/13/13 at 1239 | | | | | | + +-------+ +------+---+---+ +---+---+ | | | +---+---+ + + + +---+---+---+ | lactated ringers IV | given by | 03/13/20 | | | | | INTRAPROCEDURE CONTINUOUS PRN, | | 13 12:49 | | | | | Starting 03/13/13 at 0815, | anesthes | PM PDT | | | | | Until 03/13/13 at 1239 | iology | | | | | + + + +---+---+---+ + + +---+---+---+ | given by anesthesiology | 03/13/20 | | | | | | 13 12:00 | | | | | | PM PDT | | | | + + +---+---+---+ | given by anesthesiology | 03/13/20 | | | | | | 13 11:25 | | | | | | AM PDT | | | | + + +---+---+---+ +---+---+ | | | +---+---+ + +-------+ +-------+---+---+ | lidocaine (aka XYLOCAINE MPF) | Given | 03/13/20 | 40 mg | | | | 20 mg/mL (2 %) injection | | 13 8:39 | | | | | INTRAPROCEDURE PRN, Starting Mon | | AM PDT | | | | | 03/13/13 at 0839, Until Mon | | | | | | | 03/13/13 at 1239 | | | | | | + +-------+ +-------+---+---+ +---+---+ | | | +---+---+ + +-------+ +------+---+---+ | midazolam (aka VERSED) | Given | 03/13/20 | 2 mg | | | | injection INTRAPROCEDURE PRN, | | 13 8:27 | | | | | Starting 03/13/13 at 0827, | | AM PDT | | | | | Until 03/13/13 at 1239, | | | | | | | sedation | | | | | | + +-------+ +------+---+---+ +---+---+ | | | +---+---+ + + + +---+---+---+ | NaCl 0.9 % IV INTRAPROCEDURE | given by | 03/13/20 | | | | | CONTINUOUS PRN, Starting Mon | | 13 12:49 | | | | | 03/13/13 at 0839, Until Mon | anesthes | PM PDT | | | | | 03/13/13 at 1239 | iology | | | | | + + + +---+---+---+ + + +---+---+---+ | given by anesthesiology | 03/13/20 | | | | | | 13 12:00 | | | | | | PM PDT | | | | + + +---+---+---+ | given by anesthesiology | 03/13/20 | | | | | | 13 11:25 | | | | | | AM PDT | | | | + + +---+---+---+ +---+---+ | | | +---+---+ + +-------+ +------+---+---+ | neostigmine (aka PROSTIGMIN) | Given | 03/13/20 | 5 mg | | | | injection intravenous, | | 13 12:27 | | | | | INTRAPROCEDURE PRN, Starting Mon | | PM PDT | | | | | 03/13/13 at 1227, Until Mon | | | | | | | 03/13/13 at 1239 | | | | | | + +-------+ +------+---+---+ +---+---+ | | | +---+---+ + +-------+ +------+---+---+ | ondansetron (aka ZOFRAN) | Given | 03/13/20 | 4 mg | | | | injection INTRAPROCEDURE PRN, | | 13 11:42 | | | | | Starting 03/13/13 at 1142, | | AM PDT | | | | | Until Wed03/13/13 at 1239 | | | | | | + +-------+ +------+---+---+ +---+---+ | | | +---+---+ + +-------+ +--------+---+---+ | propofol INTRAPROCEDURE PRN, | Given | 03/13/20 | 170 mg | | | | Starting Wed03/13/13 at 0839, | | 13 8:39 | | | | | Until Wed03/13/13 at 1239 | | AM PDT | | | | + +-------+ +--------+---+---+ +---+---+ | | | +---+---+ + +-------+ +-------+---+---+ | rocuronium (aka ZEMURON) | Given | 03/13/20 | 10 mg | | | | injection INTRAPROCEDURE PRN, | | 13 10:57 | | | | | Starting Wed03/13/13 at 0856, | | AM PDT | | | | | Until Wed03/13/13 at 1239, | | | | | | | Neuromuscular block | | | | | | + +-------+ +-------+---+---+ +-------+ +-------+---+---+ | Given | 03/13/20 | 10 mg | | | | | 13 10:12 | | | | | | AM PDT | | | | +-------+ +-------+---+---+ | Given | 03/13/20 | 10 mg | | | | | 13 9:15 | | | | | | AM PDT | | | | +-------+ +-------+---+---+ +---+---+ | | | +---+---+ + +-------+ +--------+---+---+ | SUCCINYLCHOLINE CHLORIDE 20 | Given | 03/13/20 | 100 mg | | | | MG/ML INJ (PROSED/RSI) | | 13 8:39 | | | | | INTRAPROCEDURE PRN, Starting Mon | | AM PDT | | | | | 03/13/13 at 0839, Until Mon | | | | | | | 03/13/13 at 1239, Neuromuscular | | | | | | | block | | | | | | + +-------+ +--------+---+---+ +---+---+ | | | +---+---+ documented in this encounter"
--- OUTSIDE RECORDS SUMMARY | ~2019-08-03 | XMS | Encounter Summary ---
Demographics + + + | Address | [address] | | | [place] [address] | + + + | Home Phone | | + + + | Preferred Language | Unknown | + + + | Marital Status | Single | + + + | Rastafari Affiliation | BAP | + + + | Race | or | + + + | Ethnic Group | Not or | + + + Author + + + | Author | [facility] | + + + | Organization | [facility] | + + + | Address | [...] Team Providers + +------+ + | Care Paperhanger Contractor Name | Role | Phone | + +------+ + | Gracie Mariano MD | PCP | | + +------+ + Reason for Visit + + + | Reason | Comments | + + + | Pre-op evaluation | | + + + Encounter Details +--------+---------+ + + + | Date | Type | Department | Care Team | Description | +--------+---------+ + + + | 03/02/ | Office | Orthopaedics at | Henrietta Aly, | Other specified | | 2012 | Visit | [facility] [address] [facility] | pre-operative | | | | [address] | | examination (Primary | | | | Mailcode: [id number] | | Dx) | | | | [facility] | | | | | | [place], [place] | | | | | | [address] | | | | | | [phone] | | | +--------+---------+ + + + Social History + + [...] + + + | Blood Pressure | 150/69 | 03/02/2013 9:57 AM | | | | | PDT | | + + + + + | Pulse | 88 | 03/02/2013 9:57 AM | | | | | PDT | | + + + + + | Temperature | - | - | | + + + + + | Respiratory Rate | - | - | | + + + + + | Oxygen Saturation | - | - | | + + + + + | Inhaled Oxygen | - | - | | | Concentration | | | | + + + + + | Weight | 117.9 kg (260 lb) | 03/02/2013 9:57 AM | | | | | PDT | | + + + + + | Height | 167.6 cm (5' 6") | 03/02/2013 9:57 AM | | | | | PDT | | + + + + + | Body Mass Index | 41.97 | 03/02/2013 9:57 AM | | | | | PDT | | + + + + + documented in this encounter Patient Instructions Patient Instructions Donita Lomeli - 02/14/2013 11:18 AM PDT Registration Locations (please check in at one of the following registration desks prior to surgery) For surgeries scheduled to take place on the [place] at the [facility]: Surgeries scheduled in the [facility] ([address] [place] [address]): registration is located on the 4th floor of [facility] (Day Surgery). Surgeries scheduled in the [facility]: registration is located on the 9th floor. Surgeries scheduled in [facility]: registration is located on the 6th floor. Surgeries scheduled in the [facility]: registration is located i n the [facility] on the first floor. For surgeries scheduled to take place at the [facility]: registration is l ocated on the 4th floor (Surgery Center). Important Information Due to the increased prevalence of pests in our community, we are asking patients to partne r with us to keep our hospital clean. If you have noticed bugs or other pests in your home, on your belongings or on your body, please contact your doctor's office prior to your admis jacki. For your safety and protection, please limit what you bring to the hospital. All valuables should be left at home. This includes pillows, blankets, clothing, purses, wallets, money an d jewelry. Patients may not bring personal electronics into the hospital, including hairdry ers, electric cm, radios and CD players. If you use specialized medical equipment at [facility], please check with your provider before bringing it with you into the hospital. Registration Process for all Admissions/Surgeries 1. Please bring your insurance card(s) with you and be prepared to pay any co-payment, co-i nsurance or deposit that may be required. 2. Once you arrive at the registration desk, you will be interviewed by a Patient Access Se rvice Specialist (FAYE). Demographics will be verified (example: name, date of , Social Security Number, address, insurance). 3. You will be asked to sign some paperwork: Terms and Conditions of Service, Notice of Alisson vacy Practices Acknowledgement and Genetic Testing Opt Out. 4. You will be given some paperwork: copies of any forms signed by you, Patient Rights, Res ponsibilities and Safety, Understanding Advance Directives, and Smoking Cessation Brochure.E lectronically signed by Donita Lomeli at 02/14/2013 11:18 AM PDT documented in this encounter Progress Notes Page, Henrietta Lujan PA-C - 03/02/2013 10:26 AM PDTFormatting of this note might be different fr om the original. SUBJECTIVE: Jorge L Cisneros is here today for pre-operative evaluation for complex R SUSHIL. He has been taking narcotics preoperatively (60mg morphine daily). Pertinent medical history includes numerous comorbidities. (complete medical history below) He denies FH of clotting disorders, HRT, history of CA, smoking. + anticoagulation (warfarin) and + hx of DVT Also denies recent fevers/illness, sleep apnea, previous complications with anesthesia, blo od transfusion within the last 90 days. JOINT PATIENT SCREENING: Is the patient a diabetic? yes . HgbA1c 7.3 Body mass index is 41.99 kg/(m^2). Are there dental issues? no Is there peripheral edema? no Any open sores/wound or compromised skin integrity? no Is patient smoking? no Has patient had MRSA or VRE? no Does the patient have any allergies to antibiotics? yes PCNs/sulfa rash Allergies Allergen Reactions Codeine Rash Penicillins Rash Sulfa (Sulfonamide Antibiotics) Trimethoprim Otherwise the orthopaedic history is unchanged from previous visit. The past medical histo ry, medications, allergies, surgical history, and social history were reviewed and updated i n Epic. ROS: - Respiratory: No cough, dyspnea, wheezing. - Cardiovascular: No chest pain, palpitations, syncope - Gastrointestinal: No abdominal pain, nausea or vomiting - Genitourinary: No dysuria, hematuria - Skin: No recent rashes, sores, ulcers, wounds or skin changes - Heme: No abnormal bruising, abnormal bleeding, blood clots - ID: No fevers, persistent infections, recent antibiotic usage OBJECTIVE: - Last Vitals: BP 150/69 | Pulse 88 | Ht 1.676 m (5' 6") | Wt 117.935 kg (260 lb) | BMI 41. 99 kg/(m^2) - General: AAOx3, cooperative with exam - Cardiac: Regular rate and rhythm - Chest: No signs of respiratory distress. Regular respiratory rate and rhythm. Remainder of physical exam deferred to PAT clinic. PLAN: - complex SUSHIL of right side is scheduled for 03/14. - Perioperative antibiotic will be ancef - DVT risk: High Per [facility] notes: Because this patient meets criteria for Lovenox bridging before surgery, the following are recommendations on how this issue should be managed (arrangements will be made through jimmy briones's PCP who manages this patient's INR): Check INR seven days before surgery. If INR is the rapeutic (i.e. 2-3), stop Coumadin five days before surgery. Begin Lovenox 1mg/kg subQ twice a day three days before surgery. The last dose of Lovenox should be administered ~ 24 hours before surgery (i.e., no Lovenox the evening before surgery or the morning of surgery). Res ume Coumadin and Lovenox ~24 hours after surgery. Check daily INR. When INR is > 1.8, Loveno x can be stopped and Coumadin continued as before the surgery. - D/C Plan: rehab facility *PT DOES NOT WANT TO RETURN TO [place]* - A PARQ session was held, additional questions were answered. We specifically discussed the risks of infection, bleeding, DVT/PE, damage to surrounding structures, fracture, LLD, d eath, instability, failure of the prosthesis, need for further surgery, cardiac complicatio ns and the general recovery period. - He understands these risks and wishes to proceed with surgery. - After PARQ was held, the patient freely signed the consent form. - They will proceed to the PAT clinic for further testing and physical examination. - First follow up will be approximately 2 weeks post-operatively with the PA. - X-rays will not be required at the 2 week post-op visit. - He was encouraged to call our office with any questions or concerns prior to the next vis it. Past Medical History Diagnosis Date Diabetes mellitus type II 2007 Diverticula, colon 2002 Ankylosing spondylitis Spinal fusion Neck fusion from Cardiac murmur Osteoarthrosis, hip 05/23/2009 right hip Antiphospholipid antibody syndrome DVT, lower extremity Osteoarthrosis, hip HTN (hypertension) Hypothyroidism Stroke 2009 x2 Diabetes mellitus with nephropathy Per outside records (10/09/2009) in media. Localized osteoarthrosis not specified whether primary or secondary, pelvic region and thigh Ankylosing spondylitis Anticoagulation management encounter Iron deficiency Testosterone deficiency Obesity Heart disease, unspecified Other and unspecified hyperlipidemia Shortness of breath GERD (gastroesophageal reflux disease) Seizure disorder Unspecified hemorrhagic conditions Patient Active Problem List Diagnosis Osteoarthrosis, hip Ankylosing Spondylitis Current Medication List Name Sig CHOLECALCIFEROL (VITAMIN D3) 5,000 UNIT CAPSULE Take 5,000 Units by mouth once daily. CLOTRIMAZOLE 1 % TOPICAL CREAM Apply to affected area two times daily. Apply to affected a grisel for 7 consecutive days. GLIPIZIDE 5 MG TABLET Take 5 mg by mouth once daily. LEVOTHYROXINE 50 MCG TABLET Take 50 mcg by mouth once daily. LISINOPRIL 10 MG TABLET Take 10 mg by mouth once daily. MEDICAL MARIJUANA once daily. 3 grams per day METOPROLOL TARTRATE 25 MG TABLET Take 25 mg by mouth two times daily. MORPHINE 15 MG TABLET Take 1 Tab by mouth every four hours as needed for severe pain. MORPHINE ER 60 MG TABLET,EXTENDED RELEASE Take 1 Tab by mouth every twelve hours. MULTIVITAMIN CAPSULE Take 1 Cap by mouth once daily. WARFARIN 5 MG TABLET Take by mouth. 6.5 mg every other day, 6.0 mg on other days Allergies Allergen Reactions Codeine Rash Penicillins Rash Sulfa (Sulfonamide Antibiotics) Trimethoprim Past Surgical History Procedure Laterality Date Colectomy 2003 partial, for diverticulitis Rotator cuff repair 1997 Family History Problem Relation Cancer Mother mesothelioma Heart Disease Father History Social History Marital Status: Single Spouse Name: N/A Number of Children: N/A Years of Education: N/A Occupational History Not on file. Social History Main Topics Smoking status: Former Smoker -- 0.50 packs/day for 2 years Types: Cigarettes Quit date: 12/14/1981 Smokeless tobacco: Never Used Alcohol Use: No Drug Use: Yes marijuana daily 3.0 Sexually Active: Not on file Other Topics Concern Not on file Social History Narrative No narrative on file urdumDonita - 11:15 AM PDTPATIENT NAME: Jorge L Cisneros : 1950 Pt's Phone numbers: [phone] (home) Date of Surgery: 03/14/2013 Thank you for scheduling your surgery with The Department of Orthopedics. I would like to take a moment and ask you a few questions that will help assist us in making the appropriate arrangements for you after you have been discharged from the hospital. At this time do you currently have any of the following?: Front wheeled walker adjusted for you, Bedside Commode and Cane Single Prong While a brief stay at a senior care facility may not be likely, we still recommend that you or someone you trust tour several senior care facilities in the area you would like to be prior or your admission, so that if a skilled facility is the discharge recommendatio n post operatively, the transition can progress in a more smooth and timely manner. If a senior care facility stay is recommended at discharge, please tell us where you wo uld like to stay: I would like to stay in a facility close to [facility] At discharge, please be aware that discharge time from [facility] will be approximately around 11 :00am. Once you have been discharged please share with us your plan for transportation: Medicaid transport It is important for you to be aware that if you plan to bill Medicare for your transportati on, it is required that you be transported by stretcher, in order to ensure safe transportat ion. Please note that the [facility] Packing Clerk will fill out and submit a medical necessity fo rm for your transportation. Once submitted Medicare will review the case and at that time will determine if they will pay for all or part of your transportation cost. If they deny p art of it, the remainder will be your responsibility. Instructions gone over with patient and they understand. Home Health: In some cases, insurance determines which agency may be used, as specific agencies can be c ontracted with certain insurance companies. If home health services are needed at discharge, do you have a preference on what who you w ould use? I have never used a home health agency before Please tell us what support at home you have once you have been discharged from surgery? Has someone who lives in his home with him who can help him and healthcare prof will check adolfo y Are there any barriers you are aware of that might affect your ability to safely discharge home. No - someone lives at home with him documented in this encoun ter Plan of Treatment Not on filedocumented as of this encounter Visit Diagnoses + + | Diagnosis | + + | Other specified pre-operative examination - Primary | + + documented in this encounter
--- OUTSIDE RECORDS SUMMARY | ~2019-08-03 | XMS | Encounter Summary ---
Demographics + + + | Address | [address] | | | [place] [address] | + + + | Home Phone | | + + + | Preferred Language | Unknown | + + + | Marital Status | Single | + + + | Jainism Affiliation | BAP | + + + | Race | or | + + + | Ethnic Group | Not or | + + + Author + + + | Author | [facility] | + + + | Organization | [facility] | + + + | Address [...] Team Providers + +------+ + | Care Zoning Technician Name | Role | Phone | + +------+ + | Gracie Mariano MD | PCP | | + +------+ + Reason for Visit + + + | Reason | Comments | + + + | Care Coordination | Scheduling | + + + Encounter Details +--------+ + + + + | Date | Type | Department | Care Team | Description | +--------+ + + + + | 09/14/ | Telephone | Digestive Health | Harinder Felton, | Care Coordination | | 2013 | | Center at [facility] [address] | MD [address] | (Scheduling ) | | | | [address] | [place] [address] | | | | | Mailcode: Center | [phone] | | | | | for Health and | | | | | | [facility] [address] | | | | | | [place], [place] | | | | | | [address] | | | | | | [phone] | | | +--------+ + + + [...]
--- OUTSIDE RECORDS SUMMARY | ~2019-08-03 | XMS | Encounter Summary ---
Demographics + + + | Address | [address] | | | [place] [address] | + + + | Home Phone | | + + + | Preferred Language | Unknown | + + + | Marital Status | Single | + + + | Quaker Affiliation | BAP | + + + | Race | or | + + + | Ethnic Group | Not or | + + + Author + + + | Author | [facility] | + + + | Organization | [facility] | + + + | Address | [...] Team Providers + +------+ + | Care Derrick Barge Operator Name | Role | Phone | + +------+ + | Gracie Mariano MD | PCP | | + +------+ + Reason for Visit +--------+ + | Reason | Comments | +--------+ + | Other | | +--------+ + Encounter Details +--------+ + + + + | Date | Type | Department | Care Team | Description | +--------+ + + + + | 11/22/ | Telephone | Digestive Health | Adriano Chavez, | | | 2013 | | Center at [facility] [address] | MD | | | | | [address] | | | | | | Mailcode: [place] | | | | | | [facility] Health and | | | | | | [facility] [address] | | | | | | [place], [place] | | | | | | [address] | | | | | | [phone] | | | +--------+ + + + [...]
--- OUTSIDE RECORDS SUMMARY | ~2019-08-03 | XMS | Encounter Summary ---
Demographics + + + | Address | [address] | | | [place] [address] | + + + | Home Phone | | + + + | Preferred Language | Unknown | + + + | Marital Status | Single | + + + | Sikhism Affiliation | BAP | + + + | Race | or | + + + | Ethnic Group | Not or | + + + Author + + + | Author | [facility] | + + + | Organization | [facility] | + + + | Address | [...] Team Providers + +------+ + | Care Lecturer Of Portuguese Name | Role | Phone | + +------+ + | Gracie Mariano MD | PCP | | + +------+ + Reason for Visit + + + | Reason | Comments | + + + | On Treatment Visit | | | (OTV) | | + + + AUTH/CERT +--------+--------+ + + + + | Status | Reason | Specialty | Diagnoses / | Referred By | Referred To | | | | | Procedures | Contact | Contact | +--------+--------+ + + + + | Closed | | | | | | +--------+--------+ + + + + Encounter Details +--------+---------+ + + + | Date | Type | Department | Care Team | Description | +--------+---------+ + + + | 03/13/ | Office | Radiation Oncology | Raf Smith MD | Radiotherapy | | 2013 | Visit | at [facility] [address] | [address] | (Primary Dx) | | | | [place] | [place], | | | | | [id number] [facility] | [place] [address] | | | | | [facility], | [phone] | | | | | [place] [address] | | | | | | [phone] | | | +--------+---------+ + + + [...] + + + | Blood Pressure | - | - | | + + + + + | Pulse | - | - | | + [...] + + + + | Weight | - | - | | + + + + + | Height | 165.1 cm (5' 5") | 03/13/2014 6:38 PM | | | | | PDT | | + + + + + | Body Mass Index | - | - | | + + + + + documented in this encounter Progress Notes Raf Smith MD - 03/14/2014 1:12 AM PDTWe delivered a single fraction of radiation to Flo Cisneros's right hip He had some pain with treatment but overall tolerated it well. He will follow up with orthopedic surgery. JH ' Brittney Darling RN - 03/13/2014 6:36 PM PDT Nursing Note Patient here for an On Treatment Visit. Completed 1 fractions of a planned 1. Current dose 700 cGy of total 700 cGy. Vital Signs and medications per inpatient chart. Pain Score: 5/10 - lower back, right leg, right side of head Wt Readings from Last 3 Encounters: 03/12/14 118.4 kg (261 lb 0.4 oz) 03/12/14 118.4 kg (261 lb 0.4 oz) 03/08/14 116.121 kg (256 lb) Recent Labs 02/28/14 0844 03/12/14 1019 03/13/14 0504 WBC 7.88 -- 8.58 HB 14.6 -- 10.4* HCT 41.4 44.0 31.2* PLT 208 -- 171 BUN 21* -- 12 CR 0.69* -- 0.68* NA 137 136 138 K 4.1 5.0 3.8 Subjective: Pt reports baseline fatigue. Pt c/o the right side of his head hurts and he is not able to move his neck. His right hip and lower back are painful. Pt denies any other pr oblems at this time. Objective: Pt alert, oriented, and comes via stretcher. Accompanied by self. Nursing Plan: Continue supportive care. Will continue to monitor. documented in this en counter Plan of Treatment Not on filedocumented as of this encounter Visit Diagnoses + + | Diagnosis | + + | Radiotherapy - Primary | + + documented in this encounter
--- OUTSIDE RECORDS SUMMARY | ~2019-08-03 | XMS | Encounter Summary ---
Demographics + + + | Address | [address] | | | [place] [address] | + + + | Home Phone | | + + + | Preferred Language | Unknown | + + + | Marital Status | Single | + + + | Roman Catholic Affiliation | BAP | + + + | Race | or | + + + | Ethnic Group | Not or | + + + Author + + + | Author | [facility] | + + + | Organization | [facility] | + + + | [...] Team Providers + +------+ + | Care Human Resources Communications Manager Name | Role | Phone | + +------+ + | Gracie Mariano MD | PCP | | + +------+ + Reason for Visit + + + | Reason | Comments | + + + | Pre-operative | Complex right SUSHIL; 03/14/2014; Jorge Walker MD; [facility] | | evaluation | | + + + Encounter Details +--------+---------+ + + + | Date | Type | Department | Care Team | Description | +--------+---------+ + + + | 02/28/ | Office | Preoperative | Angeline Arambula | Preop examination | | 2014 | Visit | Medicine Clinic at | R, 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 [place] [address] | [address] | Hypertension; | | | | [place] [facility] | [phone] | Diabetes mellitus | | | | and Healing, | | ([facility]); | | | | Building 1,4th Floor | | Antiphospholipid | | | | [place], [place] | | antibody syndrome | | | | [address] | | ([facility]); Difficult | | | | [phone] | | intubation; Chronic | | | | | | pain; | | | | | | Osteoarthrosis, hip | +--------+---------+ + + + Anesthesia Record + + + + + | Procedure Name | Responsible | Anesthesia Start | Anesthesia Stop Time | | | Anesthesiologist | Time | | + + + + + | COMPLEX RIGHT TOTAL | Bella Lion MD | 03/12/14 0829 | 03/12/14 1119 | | HIP ARTHROPLASTY AND | | | | | VACUUM ASSISTED | | | | | CLOSURE (Right Hip) | | | | + + [...] | Meds | +------+ + + + No medications | on file. | + + + + + | No agents on file. | + + + + | No blood administrations on file. | + + +--------+ + + + | Type | Details | Placement | Removal | +--------+ + + + | RETIRE | 03/13/13; 0841; 06/10/17 | 03/13/13 0841 by | 06/10/17 1622 by | | D - | (Automatic cleanup per RA | Williams Knight | Discontinued After | | Periph | 3006--contact admin for | QUILL PICKING MACHINE OPERATOR | Discharge | | eral | questions.); [...] 06/10/17 (Automatic | 03/12/14 0000 by | 06/10/172 by | | D - | cleanup [...] + + + | RETIRE | 03/12/14; 735; 03/14/14; 950; | 03/12/14735 by | 03/14/14950 [...] + + + | Blood Pressure | 143/64 | 02/28/2014 8:28 AM | | | | | PDT | | + + + + + | Pulse | 72 | 02/28/2014 8:28 AM | | | | | PDT | | + + + + + | Temperature | 36.7 C (98.1 F) | 02/28/2014 8:28 AM | | | | | PDT | | + + + + + | Respiratory Rate | 14 | 02/28/2014 8:28 AM | | | | | PDT | | + + + + + | Oxygen Saturation | 98% | 02/28/2014 8:28 AM | | | | | PDT | | + + + + + | Inhaled Oxygen | - | - | | | Concentration | | | | + + + + + | Weight | 115.2 kg (254 lb) | 02/28/2014 8:28 AM | | | | | PDT | | + + + + + | Height | 166.4 cm (5' 5.5") | 02/28/2014 8:28 AM | neck 47 cm | | | | PDT | | + + + + + | Body Mass Index | 41.62 | 02/28/2014 8:28 AM | | | | | PDT | | + + + + + documented in this encounter Patient Instructions Patient Instructions Angeline Arambula NP - 02/28/2014 8:46 AM PDT PREOPERATIVE INSTRUCTIONS Special Instructions for Orthopedic Patients Having Joint Replacement Surgery Nasal swab culture to screen for staph bacteria. If the culture obtained during your vi sit with us turns positive (meaning that there is bacterial growth), you will be contacted b y us with additional instructions on how to prepare for surgery. If no growth, then no call ! CHG wipe packet and instructions on proper skin cleaning Please be sure to follow the se romano instructions regarding proper skin preparation before surgery. Empty stomach before surgery On the day BEFORE your surgery, drink plenty of fluids and stay well hydrated NOTHING to eat or drink after midnight the night before surgery. This includes water, coffee, candy, mints, gum. Medications Instructions Discuss with prescribing provider holding your Humira!! Discuss with your prescribing provider regarding holding Coumadin, and potentially bridging to Lovenox! Take 50% of your prescribed dose of lantus night before surgery (22 units)! TAKE the following medications with a sip of water on the morning of surgery: levothyroxine 50 mcg Oral tablet, Take 50 mcg by mouth once daily. morphine 15 mg Oral tablet, Take 1-2 Tabs by mouth every three hours as needed for severe p ain. morphine ER 60 mg Oral tablet extended release, Take 1 Tab by mouth every twelve hours. Do NOT take the following medications on the morning of surgery: lisinopril 10 mg Oral tablet, Take 10 mg by mouth once daily. glipiZIDE 5 mg Oral tablet, Take 5 mg by mouth two times daily. Unless otherwise directed by your surgeon, do not take any Aspirin, vitamin E or non-kristine roidal anti-inflammatory (NSAIDs i.e. Advil, Aleve, Ibuprofen) or herbal supplements 7-14 da ys prior to your surgery. These drugs may interfere with normal blood clotting and may cause excessive bleeding and bruising during or after the surgery. If you are taking Coumadin (warfarin), Plavix or any other blood thinners please let you r surgical team know as medication changes may be necessary. If you need a pain medication for general purposes, use Tylenol as directed. OK to take it even on the morning of surgery, if needed. If you are in doubt about any medications that you are taking, please contact our office . Other Important Guidelines Do not shave the surgical area Do not smoke, drink alcohol or use recreational drugs for 24 hours before your surgery Watch for any change in your health condition. Let your surgeon know right away if you do not feel well. Do not wear makeup, perfume, lotions, deodorant, powder or hairspray. Do not wear any jewelry to the hospital. Wear loose, comfortable clothing. Leave all your valuables at home. Allow enough travel time so you re not late for your check in for surgery. Take a bath or shower and remember to shampoo your hair using your usual hair product bef ore your arrival at the hospital. Please remember to brush your teeth the night before and the morning of your procedure. Preventing post op complications while you are in the hospital Use an incentive spirometer or peep breathe to keep your lungs working properly an d to help prevent respiratory complications. It helps you take long, deep breaths. Use it at least once every hour while you are awake. Leg and feet exercises will maintain good circulation and help prevent blood clots in yo ur legs. Sometimes your doctor will order air compression stockings. Compressed air helps the circulation in your legs. Walking and moving will help stimulate normal circulation and deep breathing. After you r surgery, your nurse may ask you to sit, stand or walk. Surgery Check in Locations Admitting [facility], ninth floor [facility] Surgery Check in Time: The Preoperative Medicine Clinic is not in the position to give you accurate information regarding surgical check in time. We refer you back to your surgical office regarding this important information. Going Home Your surgical team will decide when you are medically ready to go home. If you stayed in the hospital after surgery, please arrange for your ride to come for yo u around 9AM on the day your doctor says you can go home. Check out time is 11AM. If you have questions or concerns after you go home, call your doctor s office. If it is after office hours, call the [facility] cinder pit crane operator at [phone] and ask them to page him or h er. Preparing For Your Surgery Video -- 7 minutes of instructions! Access the [facility] website [email or web address] --> POPULAR RESOURCES --> Patient Guide --> Preparing for your Visit or Surgery --> "Preparing for Your Surgery" video link documented in this encounter Progress Notes Stephania Roberts MA - 02/28/2014 9:08 AM PDT Venipuncture performed in clinic, blood sample obtained from Right antecubital site Hemoglo bin A1C POCT performed during clinic visit. Blood sample obtained from venipuncture performe d to obtain other lab tests. Two patient identifiers performed. Nasal swab specimen obtained from both the left and righ t nares per nasal swab collection instructions. Swab placed in culture tube; tube labeled an d sent to the lab. rnst, Angeline Aguero NP - 02/28/2014 8:25 AM PDT PREOPERATIVE CONSULT NOTE Consulting Provider: ANGELINE ARAMBULA NP Referring Physician: Jorge Walker MD Primary Care Provider: Gracie Mariano MD Reason for Consult: Preoperative evaluation and risk assessment Proposed Procedure/Date: Complex SUSHIL; 03/14/2014 HISTORY OF PRESENT ILLNESS: Jorge L Cisneros is a 63 y.o. male here for preoperative evaluation for above procedure. Pt has dx of right hip OA characterized by s/p left hip arthroplasty in 04/2012, which has p rovided much relief. Right hip is anklyosed on x-ray. Deemed to be candidate hip replacement . Evaluated by Dr. Walker - now plan for right hip SUSHIL. I last saw this patient in [facility] on 06/29/2013 for pre-op eval for this same procedure, but mclain rgery was delayed at that time d/t poorly controlled diabetes (Hb A1c was 8.3 at that time). Since then, his sugars have been better controlled. Last a1c was 6.9 in November. Overall he is feeling well and ready to have hip surgery. Denies any other significant changes to health. PMHx: ankylosing spondylitis, antiphospholipid antibody syndrome (hx CVA, RLE DVT) on couma din, type II DM, HTN. He has no hx nor symptoms of CAD, CHF, CKD. Functional capacity is Intermediate ROS: Pulmonary: Within Defined Limits except as noted below No dx of sleep apnea Risks factors for sleep apnea: Pt. being treated for high blood pressure Age>50, Male gender, Neck circumference> 40 cm an d BMI>35 pt. at high risk of MICHELLE Cardiovascular: About 4-5 mets; Able to walk several miles with walker uphill Denies any chest pain or pressure, sob, salgado, orthopnea, pnd, peripheral edema, palpitations or dizziness/syncope. Hx murmur - present many years. Echo about 7-8 years ago at OSH, which was normal per pt. Of note, tolerated left hip SUSHIL 04/2012 without issues. Within Defined Limits except as noted below Functional Capacity: Low no CAD no CHF hypertension well controlled valvular problems/murmurs Other no pacemaker GI/Hepatic: S/p cholecystectomy (06/2013). No further abd pain Within Defined Limits except as noted below no GERD : Within Defined Limits except as noted below Endo: A1C 6.4 02/28/2014 bmi - 41.6 Within Defined Limits except as noted below Diabetes: type 2, well controlled oral hypoglym ics & insulin Lente 151-200 Thyroid:+ hypothyroid Neurological: +chronic pain Hx CVA x2 -- deficits: memory loss Within Defined limits except as noted below Sign/Sx Hx o f CVA no psychiatric problem pain (pain from neck - knees -- joint pain. takes 3.25mg morphi ne twice daily as needed. no long-acting MS contin, cutting down on medical marijuana) Chron ic pain > 6 months Chronic pain related to scheduled surgery Current Pain Level: Current pain level: 8 MS: S/p left hip SUSHIL (04/2012) -- neck fused Has Humira, but plans to hold off starting med until after surgery Within Defined Limits ex cept as noted below arthritis Type: osteoarthritis Heme/Onc: Hx of DVT; anti-phospholipid antibodies On coumadin Within Defined Limits except as noted below Pt. has: no active bleeding Bleedin g diathesis / thrombotic bleeding DVT other heme (anti-phospolipid antibodies), Skin: Within Defined Limits except as noted below Current Medication List Name Sig ACETAMINOPHEN 650 MG TABLET Take 1 Tab by mouth every six hours. ADALIMUMAB 40 MG/0.8 ML SUBCUTANEOUS PEN KIT Inject 0.8 mL under the skin (SUBC) every four teen days. As directed. CHOLECALCIFEROL (VITAMIN D3) 5,000 UNIT CAPSULE Take 5,000 Units by mouth once daily. CLOTRIMAZOLE 1 % TOPICAL CREAM Apply to affected area two times daily. Apply to affected a grisel for 7 consecutive days. GLIPIZIDE 5 MG TABLET Take 5 mg by mouth two times daily. INSULIN GLARGINE 100 UNIT/ML SUBCUTANEOUS SOLUTION Inject 44 Units under the skin (SUBC) on ce daily at bedtime. LEVOTHYROXINE 50 MCG TABLET Take 50 mcg by mouth once daily. LISINOPRIL 10 MG TABLET Take 10 mg by mouth once daily. MEDICAL MARIJUANA once daily. 3 grams per day MORPHINE 15 MG TABLET Take 1-2 Tabs by mouth every three hours as needed for severe pain. MORPHINE 15 MG TABLET Take 1 Tab by mouth every four hours as needed for severe pain. MORPHINE ER 60 MG TABLET,EXTENDED RELEASE Take 1 Tab by mouth every twelve hours. MULTIVITAMIN CAPSULE Take 1 Cap by mouth once daily. POLYETHYLENE GLYCOL 3350 17 GRAM/DOSE ORAL POWDER Take 17 g by mouth once daily. SENNOSIDES-DOCUSATE SODIUM 8.6 MG-50 MG TABLET Take 1 Tab by mouth two times daily. WARFARIN 6 MG TABLET Take 6 mg by mouth once daily. Allergies Allergen Reactions Codeine Rash Penicillins Rash Sulfa (Sulfonamide Antibiotics) Diarrhea and Rash Trimethoprim Diarrhea That lasted a week Past Medical History Diagnosis Date Diabetes mellitus type II 2007 Diverticula, colon 2002 Ankylosing spondylitis Spinal fusion Neck fusion from Cardiac murmur Osteoarthrosis, hip 05/23/2009 right hip Antiphospholipid antibody syndrome histo DVT, lower extremity Osteoarthrosis, hip HTN (hypertension) Hypothyroidism Stroke 2009 x2 Diabetes mellitus with nephropathy Per outside records (10/09/2009) in media. Localized osteoarthrosis not specified whether primary or secondary, pelvic region and thigh Ankylosing spondylitis Anticoagulation management encounter Iron deficiency Testosterone deficiency Obesity Heart disease, unspecified Other and unspecified hyperlipidemia Shortness of breath GERD (gastroesophageal reflux disease) Unspecified hemorrhagic conditions Difficult intubation glidescope used for intubation Past Surgical History Procedure Date Colectomy 2004 partial, for diverticulitis Rotator cuff repair 1997 Left total hip arthroplasty with complexity modifier, incisional wound vac 05/09/2012 Cholecystectomy 06/2013 Family History Problem Relation Cancer Mother mesothelioma Heart Disease Father GI Neg Hx no IBD Cancer Other no colon cancer History Substance Use Topics Smoking status: Former Smoker -- 0.50 packs/day for 2 years Types: Cigarettes Quit date: 12/14/1981 Smokeless tobacco: Never Used Alcohol Use: No PHYSICAL EXAM: Last Vitals: BP 143/64 | Pulse 72 | Temp (Src) 36.7 C (98.1 F) (Oral) | RR 14 | Ht 1.66 4 m (5' 5.5") | Wt 115.214 kg (254 lb) | SpO2 98% | BMI 41.61 kg/(m^2) Body mass index is 41 .61 kg/(m^2). Physical Exam General: Patients general appearance: Alert, No distress, Cooperative and Smiling Head & Neck/Airway: Normocephalic; atraumatic; PERRL; EOMI; nl appearing ears and nose. Nec k ROM: fixed Neck Circumference: 47 cm. TM Distance:Normal Dentition: dentures-upper and missing teeth Dentition Comments: has part ial lower denture that he doesn't wear Mallampati: II Mouth Opening: > = 3 cm C-Spine: limit ed flexion & extension Neck Anatomy: Thick, obese Jaw Protrusion: Normal, lower incisors can protrude past upper incisors Lung Exam: No respiratory distress. Normal breathing pattern. breath sounds normal Cardiac: 1-2/6 systolic murmur Rhythm: regular Rate: normal Abdominal: obesity Musculoskeletal: Findings: tone normal Neuro/Psych: No focal neuro deficits; Alert and appropriate; nl affect. Ambulates with walker alert Integument: No open rashes or lesions noted. Color: pink Texture: Skin texture - normal Turgor: turgor normal Implants: None, Comments: +difficult airway -- requires glidescope d/t neck immobility LAB DATA REVIEWED/ORDERED Lab Results Component Value Date WBC 7.88 02/28/2014 HB 14.6 02/28/2014 HCT 41.4 02/28/2014 PLT 208 02/28/2014 MCV 82.3 02/28/2014 RDW 39.9 02/28/2014 Lab Results Component Value Date NA 137 02/28/2014 K 4.1 02/28/2014 CL 103 02/28/2014 BICARB 26 02/28/2014 BUN 21 02/28/2014 CR 0.69 02/28/2014 GLU 118 02/28/2014 CA 9.1 02/28/2014 AST 16 02/28/2014 ALT 29 02/28/2014 AP 78 02/28/2014 TBILI 0.9 02/28/2014 TP 7.3 02/28/2014 ALB 3.4 02/28/2014 Lab Results Component Value Date ABO A 02/28/2014 RH Positive 02/28/2014 Lab Results Component Value Date A1C 6.4 02/28/2014 MRSA/MSSA screening -- not detected EKG: Personally reviewed, sinus rhythm, probable inferior infarct, age undetermined, HR 68 No significant changes from previous (03/10/2013, in cards tab) MEDICAL DECISION MAKIN ACC/ AHA Perioperative Guidelines 1. Need for emergency noncardiac surgery? b. No -> Proceed to next step. 2. Active Cardiac Conditions? These conditions mandate further investigation and manageme nt. A. Acute AZ within 7 days: no B. Unstable angina/Recent AZ (7- 30 days): no C. Decompensated CHF: no D. Significant arrhythmia: None E. Severe valvular disease: NONE 3. Low risk surgery? b. No -> proceed with next step. 4. Good functional capacity? MET ASSESSMENT: 4. METS--light yard work (raking leaves, we eding, or pushing a power mower). 5. METS--walking briskly, washing the car. 5. Assess Clinical Risk Factors? A. Ischemic heart disease: no B. Compensated / prior heart failure: no C. Diabetes mellitus (treated with insulin): yes D. Renal insufficiency (Cr > 2): no E. Cerebrovascular disease: yes Rate of cardiac , non fatal AZ, non fatal cardiac arrest (RCRI) 0 risk factors - 0.4% 1 risk factors - 1%, 2 risk factors - 7%, 3 or >risk factors - 11% (may benefit from perioperative beta blockers) Risk Factor Recommendations: 1-2 risk factors- proceed with planned surgery with HR control or consider noninvasive testing if it will change management director Surgery Risk: Intermediate Patient-related risk: Estimated ASA class -- 3 ASSESSMENT and RECOMMENDATIONS: Surgical/anesthesia risk assessment: Jorge L Cisneros is a 63 y.o. male with diagnosis of ri ght hip OA, scheduled for complex right SUSHIL. According to ACC/AHA, this patient has two cli nical risk factors and the recommendation is to proceed with planned surgery without additio nal cardiac testing. Medication management recommendations: The patient was advised to continue all usual med ications except as noted in Patient Instructions (After Visit Summary given to pt) Perioperative antibiotic prophylaxis: Standard (Consider IV Vanco one hr before procedu re in pts with Cephalosporin/PCN allergy and/or with hx of MRSA) Type II DM - stable, well controlled on PO hypoglycemics and lantus. a1c today - 6.4. Ta ke 50% of lantus night before surgery, hold glipizide day of surgery. HTN - stable, controlled on lisinopril. Advised to hold ACEI morning of surgery antiphosolipid antibody syndrome - hx CVA, RLE DVT. Stable on coumadin. Defer to PCP to coordinate bridging. Consider checking INR morning of surgery. Chronic pain - stable, pt weaning morphine and medical marijuana. Taking about 7.5 mg sh ort-acting morphine daily. Ankylosing spondylitis - stable. Considering Humira for therapy, but has not started kayden ing yet (waiting until after surgery). High risk MICHELLE - 5/8 stop bang score. monitor respiratory status closely in post-op perio d. Consider overnight oximetry, RT consult as needed. Anesthesia concerns - extremely limited neck mobility d/t fusion. Pt is difficult intuba tion, requiring glidescope. Will send email to anesthesiology demetrius to this effect. MSSA/MRSA protocol - nasal swab obtained, chg wipes given. Will notify pt if positive fo r staph aureus. This patient is medically stable for surgery. Further testing/optimization is not needed. Thank you for the opportunity to contribute to this patient's care. ANGELINE ARAMBULA NP [facility] PREOPERATIVE MEDICINE CLINIC AT [facility] 4TH FLOOR [address] [facility] [address] I counseled the patient regarding perioperative risk assessment (cardiac, bleeding, surgica l site infection, etc) and methods to avoid post op complications including respiratory fail ure/hospital acquired pneumonia and DVT. The patient was also advised regarding NPO require ment, hydration before surgery, showering, general body hygiene. All pre-procedure instruct ions given to the patient. All of patient's questions answered and clarified. Patient verb alized understanding of the instructions given. documented in this encounter Plan of Treatment + + +--------+ + + | Name | Type | Priori | Associated Diagnoses | Order Schedule | | | | ty | | | + + +--------+ + + | COMMUNICATION TO [facility] | Procedures | Routin | Preop examination | Ordered: 02/28/2014 | | LAB DRAW | | e | | | + + +--------+ + + documented as of this encounter Procedures + +--------+ + + + | Procedure Name | Priori | Date/Time | Associated Diagnosis | Comments | | | ty | | | | + +--------+ + + + | HEMOGLOBIN A1C, POC | Routin | 02/28/2014 | Preop examination | Results for this | | | e | 9:10 AM | | procedure are in the | | | | PDT | | results section. | + +--------+ + + + | DC COLLECTION VENOUS | Routin | 02/28/2014 | | | | BLOOD,VENIPUNCTURE | e | 9:08 AM | | | | | | PDT | | | + +--------+ + + + | CBC AND AUTO DIFF | Routin | 02/28/2014 | Preop examination | Results for this | | | e | 8:44 AM | | procedure are in the | | | | PDT | | results section. | + +--------+ + + + | CBC, WITH | Routin | 02/28/2014 | Preop examination | Results for this | | DIFFERENTIAL | e | 8:44 AM | | procedure are in the | | | | PDT | | results section. | + +--------+ + + + | PREALBUMIN, SERUM | Routin | 02/28/2014 | Preop examination | Results for this | | | e | 8:44 AM | | procedure are in the | | | | PDT | | results section. | + +--------+ + + + | TRANSFERRIN | Routin | 02/28/2014 | Preop examination | Results for this | | | e | 8:44 AM | | procedure are in the | | | | PDT | | results section. | + +--------+ + + + | COMPLETE METABOLIC | Routin | 02/28/2014 | Preop examination | Results for this | | SET | e | 8:44 AM | | procedure are in the | | (NA,K,CL,CO2,BUN,CRE | | PDT | | results section. | | AT,GLUC,CA,AST,ALT,B | | | | | | AARON TOTAL,ALK | | | | | | PHOS,ALB,PROT TOTAL) | | | | | + +--------+ + + + | ANTIBODY SCREEN | Routin | 02/28/2014 | Preop examination | Results for this | | | e | 8:44 AM | | procedure are in the | | | | PDT | | results section. | + +--------+ + + + | TYPE AND SCREEN | Routin | 02/28/2014 | Preop examination | Results for this | | | e | 8:44 AM | | procedure are in the | | | | PDT | | results section. | + +--------+ + + + | ABO & RH TYPE | Routin | 02/28/2014 | Preop examination | Results for this | | | e | 8:44 AM | | procedure are in the | | | | PDT | | results section. | + +--------+ + + + | JUANA PIMENTEL | Routin | 02/28/2014 | Preop examination | Results for this | | BY PCR NASAL ONLY | e | 8:43 AM | | procedure are in the | | | | PDT | | results section. | + +--------+ + + + | 12 LEAD ECG | Routin | 02/28/2014 | Preop examination | Results for this | | | e | 8:36 AM | | procedure are in the | | | | PDT | | results section. | + +--------+ + + + documented in this encounter Results HEMOGLOBIN A1C,POC (02/28/2014 9:10 AM PDT) + +---------+ + + + | Component | Value | Ref Range | Performed | Pathologist | | | | | At | Signature | + +---------+ + + + | HEMOGLOBIN | 6.4 (H) | 4.0 - 5.7 % | [facility], | | | A1C,POC | | | POINT OF | | | | | | CARE TESTS | | + +---------+ + + + + + | Specimen | + + | Blood | + + + + + + + | Performing | Address | City/State/Zipcode | Phone Number | | Organization | | | | + + + + + | [facility] | [address] | [place] [address] | | | OF CARE TESTS | | | | + + + + + CBC AND AUTO DIFF (02/28/2014 8:44 AM PDT) + +---------+ + + + | Component | Value | Ref Range | Performed | Pathologist | | | | | At | Signature | + +---------+ + + + | WHITE CELL | 7.88 | 4.40 - 11.00 | [facility] | | | COUNT | | K/cu mm | LABORATORY | | | | | | SERVICES, | | | | | | CORE | | + +---------+ + + + | RED CELL | 5.03 | 4.50 - 6.00 | [facility] | | | COUNT | | M/cu mm | LABORATORY | | | | | | SERVICES, | | | | | | CORE | | + +---------+ + + + | HEMOGLOBIN | 14.6 | 13.5 - 17.5 | [facility] | | | | | g/dL | LABORATORY | | | | | | SERVICES, | | | | | | CORE | | + +---------+ + + + | HEMATOCRIT | 41.4 | 41.0 - 53.0 % | [facility] | | | | | | LABORATORY | | | | | | SERVICES, | | | | | | CORE | | + +---------+ + + + | MCV | 82.3 | 80.0 - 96.0 fL | [facility] | | | | | | LABORATORY | | | | | | SERVICES, | | | | | | CORE | | + +---------+ + + + | MCHC | 35.3 | 33.0 - 35.5 | [facility] | | | | | g/dL | LABORATORY | | | | | | SERVICES, | | | | | | CORE | | + +---------+ + + + | RDW SD | 39.9 | 35.1 - 46.3 fL | [facility] | | | | | | LABORATORY | | | | | | SERVICES, | | | | | | CORE | | + +---------+ + + + | PLATELET | 208 | 150 - 400 K/cu | [facility] | | | COUNT | | mm | LABORATORY | | | | | | SERVICES, | | | | | | CORE | | + +---------+ + + + | MPV | 9.4 (L) | 9.7 - 12.3 fL | [facility] | | | | | | LABORATORY | | | | | | SERVICES, | | | | | | CORE | | + +---------+ + + + | NRBC% | 0.0 | 0.0 - 0.3 % | [facility] | | | | | | LABORATORY | | | | | | SERVICES, | | | | | | CORE | | + +---------+ + + + | NRBC# | 0.00 | 0.00 - 0.02 | [facility] | | | | | K/cu mm | LABORATORY | | | | | | SERVICES, | | | | | | CORE | | + +---------+ + + + | NEUTROPHIL | 60.8 | 50.0 - 70.0 % | [facility] | | | % | | | LABORATORY | | | | | | SERVICES, | | | | | | CORE | | + +---------+ + + + | LYMPHOCYTE | 25.5 | 18.0 - 42.0 % | [facility] | | | % | | | LABORATORY | | | | | | SERVICES, | | | | | | CORE | | + +---------+ + + + | MONOCYTE % | 8.1 | 3.5 - 9.0 % | [facility] | | | | | | LABORATORY | | | | | | SERVICES, | | | | | | CORE | | + +---------+ + + + | EOS % | 4.4 (H) | 1.0 - 3.0 % | [facility] | | | | | | LABORATORY | | | | | | SERVICES, | | | | | | CORE | | + +---------+ + + + | BASO % | 0.8 | 0.0 - 2.0 % | [facility] | | | | | | LABORATORY | | | | | | SERVICES, | | | | | | CORE | | + +---------+ + + + | IG% | 0.4 | 0.0 - 0.6 % | [facility] | | | | | | LABORATORY | | | | | | SERVICES, | | | | | | CORE | | + +---------+ + + + | NEUTROPHIL | 4.79 | 1.80 - 7.70 | [facility] | | | # | | K/cu mm | LABORATORY | | | | | | SERVICES, | | | | | | CORE | | + +---------+ + + + | LYMPHOCYTE | 2.01 | 1.00 - 4.80 | [facility] | | | # | | K/cu mm | LABORATORY | | | | | | SERVICES, | | | | | | CORE | | + +---------+ + + + | MONOCYTE # | 0.64 | 0.10 - 0.90 | [facility] | | | | | K/cu mm | LABORATORY | | | | | | SERVICES, | | | | | | CORE | | + +---------+ + + + | EOS # | 0.35 | 0.00 - 0.50 | [facility] | | | | | K/cu mm | LABORATORY | | | | | | SERVICES, | | | | | | CORE | | + +---------+ + + + | BASO # | 0.06 | 0.00 - 0.10 | [facility] | | | | | K/cu mm | LABORATORY | | | | | | SERVICES, | | | | | | CORE | | + +---------+ + + + | IG# | 0.03 | 0.00 - 0.03 | [facility] | | | | | K/cu mm | LABORATORY | | | | | | SERVICES, | | | | | | CORE | | + +---------+ + + + + + | Specimen | + + | Blood - Blood | + + + + + | Narrative | Performed At | + + + | Immature Granulocytes (IG) include metamyelocytes, myelocytes | [facility] | | and promyelocytes. Bands are not included in the IG count. Bands are | LABORATORY | | included in the neutrophil count. | SERVICES, CORE | + + + + + + + + | Performing | Address | City/State/Zipcode | Phone Number | | Organization | | | | + + + + + | [facility] | [address] | [place] [address] | | | SERVICES, CORE | [address] | | | + + + + + ANTIBODY SCREEN (02/28/2014 8:44 AM PDT) + + + + + [...] | + + + + + | [facility] | [address] | [place] [address] | | | SERVICES, | [address] | | | | TRANSFUSION MEDICINE | | | | + + + + + ABO & RH TYPE (02/28/2014 8:44 AM PDT) + + + + + [...] [facility] | [address] | [place] [address] | | | SERVICES, | [address] | | | | TRANSFUSION MEDICINE | | | | + + + + + TRANSFERRIN (02/28/2014 8:44 AM PDT) + +-------+ + + + | Component | Value | Ref Range | Performed | Pathologist | | | | | At | Signature | + +-------+ + + + | TRANSFERRIN | 330 | 200 - 400 mg/dL | [facility] | | | | | | LABORATORY | | | | | | SERVICES, | | | | | | CORE | | + +-------+ + + + + + | Specimen | + + | Blood - Blood | + + + + + | Narrative | Performed At | + + + | Test now performed at [facility]. New method effective 01/24/14. | [facility] | | | LABORATORY | | | SERVICES, CORE | + + + + + + + + | Performing | Address | City/State/Zipcode | Phone Number | | Organization | | | | + + + + + | [facility] | [address] | [place] [address] | | | [place] | [address] | | | + + + + + PREALBUMIN, SERUM (02/28/2014 8:44 AM PDT) + +-------+ + + + | Component | Value | Ref Range | Performed | Pathologist | | | | | At | Signature | + +-------+ + + + | PREALBUMIN | 23.7 | 17.0 - 42.0 | [facility] | | | | | mg/dL | [facility] | | | | | | [place] | | + +-------+ + + + + + | Specimen | + + | Blood - Blood | + + + + + + + | Performing | Address | City/State/Zipcode | Phone Number | | Organization | | | | + + + + + | [facility] | [address] | [place] [address] | | | [place] | | | | + + + + + COMPLETE METABOLIC SET (NA,K,CL,CO2,BUN,CREAT,GLUC,CA,AST,ALT,BILI TOTAL,ALK PHOS,ALB,PROT TOTAL) (02/28/2014 8:44 AM PDT) + + + + + + | Component | Value | Ref Range | Performed | Pathologist | | | | | At | Signature | + + + + + + | GLUCOSE, | 118 (H) | 60 - 99 mg/dL | [facility] | | | PLASMA | | | LABORATORY | | | (LAB) | | | SERVICES, | | | | | | CORE | | + + + + + + | BUN, PLASMA | 21 (H) | 6 - 20 mg/dL | [facility] | | | (LAB) | | | LABORATORY | | | | | | SERVICES, | | | | | | CORE | | + + + + + + | CREATININE | 0.69 (L) | 0.70 - 1.30 | [facility] | | | PLASMA | | mg/dL | LABORATORY | | | (LAB) | | | SERVICES, | | | | | | CORE | | + + + + + + | EGFR | >60 | >60 mL/min | [facility] | | | - | | | LABORATORY | | | [facility] | | | SERVICES, | | | | | | CORE | | + + + + + + | EGFR NON | >60 | >60 mL/min | [facility] | | | -SARAH | | | LABORATORY | | | RICAN | | | SERVICES, | | | | | | CORE | | + + + + + + | SODIUM, | 137 | 136 - 145 | [facility] | [...] + + + + | CALCIUM, | 9.1 | 8.6 - 10.2 | [facility] | | | PLASMA | | mg/dL | LABORATORY | | | (LAB) | | | SERVICES, | | | | | | CORE | | + + + + + + | BILIRUBIN | 0.9 | 0.3 - 1.2 mg/dL | [facility] | | | TOTAL | | | LABORATORY | | | | | | SERVICES, | | | | | | CORE | | + + + + + + | TOTAL | 7.3 | 6.4 - 8.2 g/dL | [facility] | | | PROTEIN, | | | LABORATORY | | | PLASMA | | | SERVICES, | | | (LAB) | | | CORE | | + + + + + + | ALBUMIN, | 3.4 (L) | 3.5 - 4.7 g/dL | [facility] | | | PLASMA | | | LABORATORY | | | (LAB) | | | SERVICES, | | | | | | CORE | | + + + + + + | ALK PHOS | 78 | 56 - 119 U/L | [facility] | | | | | | LABORATORY | | | | | | SERVICES, | | | | | | CORE | | + + + + + + | AST(SGOT) | 16 | 15 - 41 U/L | [facility] | | | | | | LABORATORY | | | | | | SERVICES, | | | | | | CORE | | + + + + + + | ALT (SGPT) | 29 | 12 - 60 U/L | [facility] | | | | | [...] + + + + + + | BILI T CMNT | No Hemo | | [facility] | | | | | | LABORATORY | | | | | | SERVICES, | | | | | | CORE | | + + + + + + | AST CMNT | No Hemo | | [facility] | | | | | | LABORATORY | | | | | | SERVICES, | | | | | | CORE | | + + + + + + | ANION GAP | 8 | mmol/L | [facility] | | | | [...] | | Interpretive Information: <60 mL/min/1.73 sq m | SERVICES, CORE | | Chronic Kidney Disease <15 mL/min/1.73 sq m | | | Kidney Failure Estimated GFR greater that 60 mL/min/1.73 sq m is of | | | limited clinical value. The MDRD equation is not valid in the | | | following situations: - Patients under 18 years of age - Severe | | | malnutrition or obesity - Vegetarian diet - Rapidly changing kidney | | | function | | + + + + + + + + | Performing | Address | City/State/Zipcode | Phone Number | | Organization | | | | + + + + + | [facility] | [address] | [place] [address] | | | SERVICES, CORE | [address] | | | + + + + + STAPH SCREEN, MRSA BY PCR, NASAL ONLY (02/28/2014 8:43 AM PDT) + + + + + + | Component | Value | Ref Range | Performed | Pathologist | | | | | At | Signature | + + + + + + | MRSA/MSSA | Not Detected | Not Detected | [facility] | | | | | | LABORATORY | | | | | | SERVICES, | | | | | | CORE | | + + + + + + + + | Specimen | + + | Swab - Nasal | + + + + + + + | Performing | Address | City/State/Zipcode | Phone Number | | Organization | | | | + + + + + | [facility] | [address] | [place] [address] | | | SERVICES, CORE | [address] | | | + + + + + 12 LEAD ECG (02/28/2014 8:36 AM PDT) + + + + + + | Component | Value | Ref Range | Performed | Pathologist | | | | | At | Signature | + + + + + + | VENTRICULAR | 68 | BPM | [facility] | | | RATE | | | OF | | | | | | CARDIOLOGY | | + + + + + + | ATRIAL RATE | 68 | BPM | [facility] | | | | | | OF | | | | | | CARDIOLOGY | | + + + + + + | P-R | 200 | ms | [facility] | | | INTERVAL | | | OF | | | | | | CARDIOLOGY | | + + + + + + | QRS | 88 | ms | [facility] | | | DURATION | | | OF | | | | | | CARDIOLOGY | | + + + + + + | QT | 396 | ms | [facility] | | | | | | OF | | | | | | CARDIOLOGY | | + + + + + + | QTC | 421 | ms | [facility] | | | | | | OF | | | | | | CARDIOLOGY | | + + + + + + | P AXIS | 25 | degrees | [facility] | | | | | | OF | | | | | | CARDIOLOGY | | + + + + + + | R AXIS | -51 | degrees | [facility] | | | | | | OF | | | | | | CARDIOLOGY | | + + + + + + | T AXIS | 18 | degrees | [facility] | | | | | | OF | | | | | | CARDIOLOGY | | + + + + + + | EKG | SINUS RHYTHMPROBABLE | | [facility] | | | DIAGNOSIS | INFERIOR INFARCT, AGE | | OF | | | | INDETERMINATEConfirmed | | CARDIOLOGY | | | | by BOB CRABTREE | | | | | | ([id number]) on 03/01/2014 | | | | | | 8:03:15 PM | | | | + + + + + + + + | Specimen | + + | | + + + + + | Narrative | Performed At | + + + | Please click | [facility] OF | | on view image for the detailed interpretation from [employer] results. | CARDIOLOGY | + + + + + | Procedure Note | + + | Interface, Cardiology Results - 03/01/2014 8:04 PM PDT Please click on view image | | for the detailed interpretation from [employer] results. | + + + + + + + | Performing | Address | City/State/Zipcode | Phone Number | | Organization | | | | + + + + + | [facility] | [address] | [place], [place] | | | CARDIOLOGY | [address] | [address] | | + + + + + documented in this encounter Visit Diagnoses + + | Diagnosis | + + | Preop examination - Primary Preoperative examination, unspecified | + + | Ankylosing spondylitis (HCC) Ankylosing spondylitis | + + | Hypertension Unspecified essential hypertension | + + | Diabetes mellitus (HCC) Type II or unspecified type diabetes mellitus without mention | | of complication, not stated as uncontrolled | + + | Antiphospholipid antibody syndrome (HCC) Primary hypercoagulable state | + + | Difficult intubation Other specified conditions influencing health status | + + | Chronic pain Other chronic pain | + + | Osteoarthrosis, hip Localized osteoarthrosis not specified whether primary or | | secondary, pelvic region and thigh | + + documented in this encounter
--- OUTSIDE RECORDS SUMMARY | ~2019-08-03 | XMS | Encounter Summary ---
Demographics + + + | Address | [address] | | | [place] [address] | + + + | Home Phone | | + + + | Preferred Language | Unknown | + + + | Marital Status | Single | + + + | Muslim Affiliation | BAP | + + + | Race | or | + + + | Ethnic Group | Not or | + + + Author + + + | Author | [facility] | + + + | Organization | [facility] | + + + | Address [...] Team Providers + +------+ + | Care Pipe Chipper Name | Role | Phone | + +------+ + | Gracie Mariano MD | PCP | | + +------+ + Encounter Details +--------+ + + + + | Date | Type | Department | Care Team | Description | +--------+ + + + + | 05/23/ | Document-Sc | UNKNOWN DEPARTMENT | Unknown . | | | 2014 | anned | [address] | | | | | | [address] | | | | | | [place], [place] | | | | | | [address] | | | +--------+ + + + [...]
--- OUTSIDE RECORDS SUMMARY | ~2019-08-03 | XMS | Encounter Summary ---
Demographics + + + | Address | [address] | | | [place] [address] | + + + | Home Phone [...] Author + + + | Author | [facility] | + + + | Organization | [facility] | + + + | Address [...] Team Providers + +------+ + | Care Design Engineering Technician Name | Role | Phone | + +------+ + | Ino Ace MD | PCP | Unavailable | + +------+ + Encounter Details +--------+ + + + + | Date | Type | Department | Care Team | Description | +--------+ + + + + | 08/22/ | Hospital | Cardiac | [facility] | | | 2008 | Encounter | Non-Invasive Testing | [address] | | | | | at [facility] | [facility] | | | | | [address] | [place] [address] | | | | | Loop Mailcode: | | | | | | [id number] | | | | | | [facility] | | | | | | [place], [place] | | | | | | [address] | | | | | | [phone] | | | +--------+ + + + + Social History + +-------+ +--------+------+ | Tobacco Use | Types | Packs/Day | Years | Date | | | | | Used | | + +-------+ +--------+------+ | Former Smoker | | | | | + +-------+ +--------+------+ + + +---------+ + | Alcohol Use [...]
--- OUTSIDE RECORDS SUMMARY | ~2019-08-03 | XMS | Encounter Summary ---
Demographics + + + | Address | [address] | | | [place] [address] | + + + | Home Phone | | + + + | Preferred Language | Unknown | + + + | Marital Status | Single | + + + | Sabianist Affiliation | [phone] | + + + | Race | Unknown | + + + | Ethnic Group | Unknown | + + + Author + + + | Author | [facility] | | | and [place] | + + + | Organization | [facility] | | | and [place] | + + + | Address | Unknown | + + + | Phone | Unavailable | + + + Support + + +---------+ + | Name | Relationship | Address | Phone | + + +---------+ + | Di Cisneros | ECON | Unknown | | + + +---------+ + Care Team Providers + +------+ + | Care Housekeeping Associate Name | Role | Phone | + +------+ + PCP | Unavailable | + +------+ + Encounter Details +--------+ + + + + | Date | Type | Department | Care Team | Description | +--------+ + + + + | 03/01/ | Hospital | [facility] | Conversion | Syncope and | | 2019 | Encounter | [facility]ENTER | Transaction, | collapse; Exertional | | | | CLINICAL DECISION | Provider Unknown | chest pain; | | | | [address] [facility] | | Coronary artery | | | | [place], [place] | (Fax) | disease of [place] | | | | [address] | Sissy Noyola, | artery of [place] | | | | [phone] | MD [address] | heart with stable | | | | | [place] | angina pectoris | | | | | [phone] | (HCC) | | | | | | | +--------+ + + + + Social History + +-------+ +--------+------+ | Tobacco Use | Types | Packs/Day | Years | Date | | | | | Used | | + +-------+ +--------+------+ | Never Smoker | | | | | + +-------+ +--------+------+ + + + | Sex Assigned at [...] + + + | Blood Pressure | 119/55 | 03/01/2019 8:38 PM | | | | | PDT | | + + + + + | Pulse | 82 | 03/01/2019 8:38 PM | | | | | PDT | | + + + + + | Temperature | 36.7 C (98 F) | 03/01/2019 8:38 PM | | | | | PDT | | + + + + + | Respiratory Rate | 18 | 03/01/2019 8:38 PM | | | | | PDT | | + + + + + | Oxygen Saturation | - | - | | + + + + + | Inhaled Oxygen | - | - | | | Concentration | | | | + + + + + | Weight | 110 kg (242 lb 8.2 | 03/01/2019 8:38 PM | | | | oz) | PDT | | + + + + + | Height | 176.5 cm (5' 9.5") | 03/01/2019 8:38 PM | | | | | PDT | | + + + + + | Body Mass Index | 35.3 | 03/01/2019 8:38 PM | | | | | PDT | | + + + + + documented in this encounter Medications at Time of Discharge + + + +---------+ + + | Medication | Sig | Dispensed | Refills | Start | End Date | | | | | | Date | | + + + +---------+ + + | acetaminophen | Take 1 tablet by | | 0 | 02/23/20 | | | (TYLENOL) 500 mg | mouth every 8 | | | 18 | | | tablet | (eight) hours as | | | | | | | needed. | | | | | + + + +---------+ + + | allopurinol | Take 100 mg by mouth | | 0 | 01/08/20 | | | (ZYLOPRIM) 100 mg | daily. | | | 17 | | | tablet | | | | | | + + + +---------+ + + | aspirin 81 MG | Take 81 mg by mouth | | 0 | 02/21/20 | | | tablet | daily. | | | 19 | | + + + +---------+ + + | B COMPLEX-C PO | Take by mouth. | | 0 | 02/21/20 | | | | | | | 19 | | + + + +---------+ + + | Cholecalciferol | Take 1 tablet by | | 0 | 01/08/20 | | | (VITAMIN D-3) 2000 | mouth. | | | 17 | | | units CAPS | | | | | | + + + +---------+ + + | folic acid 1 mg | Take 1 mg by mouth | | 0 | 01/08/20 | | | tablet | daily. Indications: | | | 17 | | | | 0.5 tab by mouth q | | | | | | | day | | | | | + + + +---------+ + + | | Take 25 mg by mouth | | 0 | 01/08/20 | | | hydroCHLOROthiazide | daily. Indications: | | | 17 | | | 25 mg tablet | take 1 tab by mouth | | | | | | | q morning for HBP | | | | | + + + +---------+ + + | HYDROmorphone | Take 1 tablet by | | 0 | 02/23/20 | | | (DILAUDID) 2 mg | mouth daily as | | | 18 | | | tablet | needed. | | | | | + + + +---------+ + + | insulin aspart | Inject into the | | 0 | 01/08/20 | | | (NOVOLOG FLEXPEN) | skin 3 (three) times | | | 17 | | | 100 units/mL | daily before meals. | | | | | | injection pen | Indications: Inject | | | | | | | 25 units under the | | | | | | | skin before meals | | | | | | | (2-3 x per day) | | | | | + + + +---------+ + + | insulin glargine | Inject into the | | 0 | 01/08/20 | | | (LANTUS SOLOSTAR) | skin nightly. | | | 17 | | | 100 units/mL | Indications: Inject | | | | | | injection (pen) | 65 units under the | | | | | | | skin at bedtime for | | | | | | | diabetes | | | | | + + + +---------+ + + | levothyroxine | Take 50 mcg by mouth | | 0 | 01/08/20 | | | (SYNTHROID) 50 mcg | every morning | | | 17 | | | tablet | before breakfast. | | | | | | | Indications: Take 1 | | | | | | | tab by mouth q day | | | | | | | except take 1 and | | | | | | | 1.5 tab twice | | | | | | | weekly. | | | | | + + + +---------+ + + | MANUAL SELECTION | once daily. 3 grams | | 0 | 03/10/20 | | | NEEDED - medical | per day | | | 18 | | | marijuana | | | | | | + + + +---------+ + + | morphine (MSIR) 15 | Take 15 mg by mouth | | 0 | 01/08/20 | | | mg tablet | every 4 (four) hours | | | 17 | | | | as needed for Pain. | | | | | | | Indications: Take 1 | | | | | | | tab by mouth q 12 | | | | | | | hrs if needed for | | | | | | | pain | | | | | + + + +---------+ + + | morphine (ROXANOL) | Take 60 mg by mouth | | 0 | 01/08/20 | | | 20 mg/mL | every 2 (two) hours | | | 17 | | | concentrated liquid | as needed for Pain. | | | | | | | Indications: Take 1 | | | | | | | tab by mouth q 12 | | | | | | | hrs if needed for | | | | | | | pain | | | | | + + + +---------+ + + | Multiple | Take 1 tablet by | | 0 | 01/08/20 | | | Vitamins-Minerals | mouth daily. | | | 17 | | | (MULTIVITAMIN WITH | Indications: Take 1 | | | | | | MINERALS) tablet | tab q day | | | | | + + + +---------+ + + | rivaroxaban | Take 1 tablet by | | 0 | 03/17/20 | | | (XARELTO) 20 mg | mouth daily. | | | 18 | | | tablet | | | | | | + + + +---------+ + + | clindamycin | Take 300 mg by mouth | | 0 | 02/21/20 | | | (CLEOCIN) 300 MG | every 6 (six) | | | 19 | 9 | | capsule | hours. | | | | | + + + +---------+ + + | docusate sodium | Take 1 capsule by | | 0 | 03/10/20 | | | (COLACE) 100 mg | mouth daily as | | | 18 | 9 | | capsule | needed. | | | | | + + + +---------+ + + | isosorbide | Take 1 tablet by | 30 | 11 | 02/21/20 | | | mononitrate (IMDUR) | mouth daily. | tablet | | 19 | 9 | | 30 mg ER tablet | | | | | | + + + +---------+ + + | metoprolol | Take 0.5 tablets by | 30 | 11 | 02/21/20 | | | tartrate (LOPRESSOR) | mouth 2 (two) times | tablet | | 19 | 9 | | 25 mg tablet | daily. | | | | | + + + +---------+ + + documented as of this encounter Progress Notes Jorden Hines, Provider Unknown - 03/01/2019 8:56 PM PDTFormatting of this note m ight be different from the original. Progress Notes by Anabel Dozier RN at 03/01/192055 Author: Anabel Dozier RN Service: (none) Author Type: Registered Nurse Filed: 03/01/192099 Date of Service: 03/01/192055 Status: Signed Automation Qa Tester: Anabel Dozier RN (Registered Nurse) Discharge instructions given, pt verbalized understanding and had no further questions. IV d/c. Pt escorted to front entrance. Anabel Dozier RN docume nted in this encounter Plan of Treatment +--------+---------+ + + + | Date | Type | Specialty | Care Team | Description | +--------+---------+ + + + | 09/14/ | Office | Neurology | Sarahi Jade, | | | 2019 | Visit | | [address] | [address] | | | | | | [place] [address] | | | | | | [phone] | | | | | | | | +--------+---------+ + + + | 11/26/ | Office | Cardiology | Sissy Noyola | | | 2019 | Visit | | MD Marisol [address] | | | | | | [place] | | | | | | [address] | | | | | | | | +--------+---------+ + + + documented as of this encounter Procedures + +--------+ + + + | Procedure Name | Priori | Date/Time | Associated Diagnosis | Comments | | | ty | | | | + +--------+ + + + | POC GLUCOSE | Routin | 03/01/2019 | | Results for this | | | e | 4:29 PM | | procedure are in the | | | | PDT | | results section. | + +--------+ + + + | HEPATIC FUNCTION | Routin | 03/01/2019 | | Results for this | | PANEL | e | 1:28 PM | | procedure are in the | | | | PDT | | results section. | + +--------+ + + + | BASIC METABOLIC | Routin | 03/01/2019 | | Results for this | | PANEL | e | 1:28 PM | | procedure are in the | | | | PDT | | results section. | + +--------+ + + + | EXTERNAL LAB: CBC | Routin | 03/01/2019 | | Results for this | | | e | 12:31 PM | | procedure are in the | | | | PDT | | results section. | + +--------+ + + + | LIPID PANEL | Routin | 03/01/2019 | | Results for this | | | e | 12:31 PM | | procedure are in the | | | | PDT | | results section. | + +--------+ + + + | BASIC METABOLIC | Routin | 03/01/2019 | | Results for this | | PANEL | e | 12:31 PM | | procedure are in the | | | | PDT | | results section. | + +--------+ + + + documented in this encounter Results POC Glucose (03/01/2019 4:29 PM PDT) + + + + + + | Component | Value | Ref Range | Performed | Pathologist | | | | | At | Signature | + + + + + + | Glucose, | 120 (H)Comment: Testing | 65 - 99 mg/dL | EXTERNAL | | | Fingerstick | performed at [facility];[address] | | LAB | | | | [address];[place], [place] | | | | | | [address] | | | | + + + + + + + + | Specimen | + + | | + + + +---------+ + + | Performing | Address | City/State/Zipcode | Phone Number | | Organization | | | | + +---------+ + + | EXTERNAL LAB | | | | + +---------+ + + Hepatic Function Panel (03/01/2019 1:28 PM PDT) + + + + + + | Component | Value | Ref Range | Performed | Pathologist | | | | | At | Signature | + + + + + + | Protein, | 5.9 (L) | 6.3 - 8.2 g/dL | EXTERNAL | | | Total | | | LAB | | + + + + + + | Albumin | 3.8 | 3.3 - 4.8 g/dL | EXTERNAL | | | | | | LAB | | + + + + + + | Bilirubin | 1.5 | 0.1 - 1.5 mg/dL | EXTERNAL | | | Total | | | LAB | | + + + + + + | Bilirubin | 0.4 (H) | 0.0 - 0.3 mg/dL | EXTERNAL | | | Direct | | | LAB | | + + + + + + | ALP, | 67 | 35 - 115 U/L | EXTERNAL | | | External | | | LAB | | + + + + + + | AST | 40 | 10 - 45 U/L | EXTERNAL | | | | | | LAB | | + + + + + + | ALT | 35Comment: Testing | 10 - 65 U/L | EXTERNAL | | | | performed at [facility];[address] | | LAB | | | | [address];[place] | | | | | | [address] | | | | + + + + + + + + | Specimen | + + | Blood specimen | | (specimen) | + + + +---------+ + + | Performing | Address | City/State/Zipcode | Phone Number | | Organization | | | | + +---------+ + + | EXTERNAL LAB | | | | + +---------+ + + Basic Metabolic Panel (03/01/2019 1:28 PM PDT) + + + + + + | Component | Value | Ref Range | Performed | Pathologist | | | | | At | Signature | + + + + + + | Na | 138 | 135 - 145 | EXTERNAL | | | | | mmol/L | LAB | | + + + + + + | K | 4.9Comment: MODERATE | 3.5 - 4.9 | EXTERNAL | | | | HEMOLYSIS | mmol/L | LAB | | + + + + + + | Cl | 106 | 99 - 109 mmol/L | EXTERNAL | | | | | | LAB | | + + + + + + | CO2 | 24 | 23 - 32 mmol/L | EXTERNAL | | | | | | LAB | | + + + + + + | Anion Gap | 13 | 5 - 20 mmol/L | EXTERNAL | | | | | | LAB | | + + + + + + | Glucose, | 156 (H) | 65 - 99 mg/dL | EXTERNAL | | | Fasting | | | LAB | | + + + + + + | BUN | 9Comment: MODERATE | 8 - 25 mg/dL | EXTERNAL | | | | HEMOLYSIS | | LAB | | + + + + + + | Creatinine | 0.83 | 0.70 - 1.30 | EXTERNAL | | | | | mg/dL | LAB | | + + + + + + | BUN/Creatin | 11 | | EXTERNAL | | | ine Ratio | | | LAB | | + + + + + + | Calcium | 8.5 | 8.5 - 10.5 | EXTERNAL | | | | | mg/dL | LAB | | + + + + + + | Estimated | >60Comment: GFR <60: | mL/min/1.73m2 | EXTERNAL | | | GFR | CHRONIC KIDNEY DISEASE, | | LAB | | | | IF FOUND OVER A 3 MONTH | | | | | | PERIOD.GFR <15: KIDNEY | | | | | | FAILURE.FOR | | | | | | AMERICANS, MULTIPLY THE | | | | | | CALCULATED GFR BY | | | | | | 1.210.This eGFR is | | | | | | calculated using the | | | | | | MDRD IDMS traceable | | | | | | equation.Testing | | | | | | performed at [facility];[address] | | | | | | [facility];[place], [place] | | | | | | [address] | | | | + + + + + + + + | Specimen | + + | Blood specimen | | (specimen) | + + + +---------+ + + | Performing | Address | City/State/Zipcode | Phone Number | | Organization | | | | + +---------+ + + | EXTERNAL LAB | | | | + +---------+ + + External Lab: CBC (03/01/2019 12:31 PM PDT) + + + + + + | Component | Value | Ref Range | Performed | Pathologist | | | | | At | Signature | + + + + + + | WBC | 10.30 | 3.80 - 11.00 | EXTERNAL | | | | | K/uL | LAB | | + + + + + + | RED CELL | 4.78 | 4.20 - 5.70 | EXTERNAL | | | COUNT | | M/uL | LAB | | + + + + + + | Hgb | 13.5 | 13.2 - 17.0 | EXTERNAL | | | | | g/dL | LAB | | + + + + + + | Hematocrit, | 40.6 | 39.0 - 50.0 % | EXTERNAL | | | POC | | | LAB | | + + + + + + | MCV | 84.8 | 80.0 - 100.0 fl | EXTERNAL | | | | | | LAB | | + + + + + + | MCH | 28.2 | 27.0 - 34.0 pg | EXTERNAL | | | | | | LAB | | + + + + + + | MCHC | 33.3 | 32.0 - 35.5 | EXTERNAL | | | | | g/dL | LAB | | + + + + + + | RDW-CV | 45.5 | 37 - 53 fl | EXTERNAL | | | | | | LAB | | + + + + + + | Platelet | 202 | 150 - 400 K/uL | EXTERNAL | | | Count | | | LAB | | | Plasma | | | | | + + + + + + | MPV | 7.6 | fl | EXTERNAL | | | | | | LAB | | + + + + + + | Differentia | AUTOMATED | | EXTERNAL | | | l Type | | | LAB | | + + + + + + | % Segmented | 74.27 | % | EXTERNAL | | | | | | LAB | | | Neutrophils | | | | | + + + + + + | % | 15.86 | % | EXTERNAL | | | Lymphocytes | | | LAB | | + + + + + + | % Monocytes | 5.78 | % | EXTERNAL | | | | | | LAB | | + + + + + + | % | 2.98 | % | EXTERNAL | | | Eosinophils | | | LAB | | + + + + + + | % Basophils | 1.11 | % | EXTERNAL | | | | | | LAB | | + + + + + + | Absolute | 7.65 (H) | 1.90 - 7.40 | EXTERNAL | | | Segmented | | K/uL | LAB | | | Neutrophils | | | | | + + + + + + | Absolute | 1.63 | 1.00 - 3.90 | EXTERNAL | | | Lymphocytes | | K/uL | LAB | | + + + + + + | Absolute | 0.60 | 0.00 - 0.80 | EXTERNAL | | | Monocytes | | K/uL | LAB | | + + + + + + | Absolute | 0.31 | 0.00 - 0.50 | EXTERNAL | | | Eosinophils | | K/uL | LAB | | + + + + + + | Absolute | 0.11 (H)Comment: Testing | 0.00 - 0.10 | EXTERNAL | | | Basophils | performed at [facility];[address] | [address] | LAB | | | | [address];[place] | | | | | | [address] | | | | + + + + + + + + | Specimen | + + | Blood specimen | | (specimen) | + + + +---------+ + + | Performing | Address | City/State/Zipcode | Phone Number | | Organization | | | | + +---------+ + + | EXTERNAL LAB | | | | + +---------+ + + Lipid Panel (03/01/2019 12:31 PM PDT) + + + + + + | Component | Value | Ref Range | Performed | Pathologist | | | | | At | Signature | + + + + + + | Cholesterol | 141Comment: SPECIMEN | mg/dL | EXTERNAL | | | | MODERATELY HEMOLYZED | | LAB | | + + + + + + | Triglycerid | 122Comment: SPECIMEN | mg/dL | EXTERNAL | | | es | MODERATELY HEMOLYZED | | LAB | | + + + + + + | HDL | 50 | mg/dL | EXTERNAL | | | | | | LAB | | + + + + + + | LDL | 67Comment: Testing | mg/dL | EXTERNAL | | | Cholesterol | performed at [facility], [address] | | LAB | | | , | [address], | | | | | Calculated, | [place] [address] | | | | | External | | | | | + + + + + + + + | Specimen | + + | Blood specimen | | (specimen) | + + + +---------+ + + | Performing | Address | City/State/Zipcode | Phone Number | | Organization | | | | + +---------+ + + | EXTERNAL LAB | | | | + +---------+ + + Basic Metabolic Panel (03/01/2019 12:31 PM PDT) + + + + + + | Component | Value | Ref Range | Performed | Pathologist | | | | | At | Signature | + + + + + + | Na | 136 | 135 - 145 | EXTERNAL | | | | | mmol/L | LAB | | + + + + + + | K | 5.9 (H)Comment: SPECIMEN | 3.5 - 4.9 | EXTERNAL | | | | MODERATELY HEMOLYZED | mmol/L | LAB | | + + + + + + | Cl | 104 | 99 - 109 mmol/L | EXTERNAL | | | | | | LAB | | + + + + + + | CO2 | 24 | 23 - 32 mmol/L | EXTERNAL | | | | | | LAB | | + + + + + + | Anion Gap | 14 | 5 - 20 mmol/L | EXTERNAL | | | | | | LAB | | + + + + + + | Glucose, | 174 (H) | 65 - 99 mg/dL | EXTERNAL | | | Fasting | | | LAB | | + + + + + + | BUN | 11Comment: SPECIMEN | 8 - 25 mg/dL | EXTERNAL | | | | MODERATELY HEMOLYZED | | LAB | | + + + + + + | Creatinine | 0.88 | 0.70 - 1.30 | EXTERNAL | | | | | mg/dL | LAB | | + + + + + + | BUN/Creatin | 13 | | EXTERNAL | | | ine Ratio | | | LAB | | + + + + + + | Calcium | 8.6 | 8.5 - 10.5 | EXTERNAL | | | | | mg/dL | LAB | | + + + + + + | Estimated | >60Comment: GFR <60: | mL/min/1.73m2 | EXTERNAL | | | GFR | CHRONIC KIDNEY DISEASE, | | LAB | | | | IF FOUND OVER A 3 MONTH | | | | | | PERIOD.GFR <15: KIDNEY | | | | | | FAILURE.FOR | | | | | | AMERICANS, MULTIPLY THE | | | | | | CALCULATED GFR BY | | | | | | 1.210.This eGFR is | | | | | | calculated using the | | | | | | MDRD IDMS traceable | | | | | | equation.Testing | | | | | | performed at [facility];[address] | | | | | | [facility];[place], [place] | | | | | | [address] | | | | + + + + + + + + | Specimen | + + | Blood specimen | | (specimen) | + + + +---------+ + + | Performing | Address | City/State/Zipcode | Phone Number | | Organization | | | | + +---------+ + + | EXTERNAL LAB | | | | + +---------+ + + documented in this encounter Visit Diagnoses + + | Diagnosis | + + | Syncope and collapse | + + | Exertional chest pain Chest pain, unspecified | + + | Coronary artery disease of [place] artery of [place] heart with stable angina pectoris | | (HCC) | + + documented in this encounter
--- OUTSIDE RECORDS SUMMARY | ~2019-08-03 | XMS | Encounter Summary ---
Demographics + + + | Address | [address] | | | [place] [address] | + + + | Home Phone | | + + + | Preferred Language | Unknown | + + + | Marital Status | Single | + + + | Presybeterian Affiliation | BAP | + + + | Race | or | + + + | Ethnic Group | Not or | + + + Author + + + | Author | [facility] | + + + | Organization | [facility] | + + + | Address | [...] Team Providers + +------+ + | Care Team Primary Care Physician Name | Role | Phone | + +------+ + | Scooby Mcclure MD | PCP | | + +------+ + Encounter Details +--------+ + + + + | Date | Type | Department | Care Team | Description | +--------+ + + + + | 10/10/ | Document-Sc | UNKNOWN DEPARTMENT | Unknown . | | | 2014 | anned | [address] | | | | | | [address] | | | | | | [place], [place] | | | | | | [address] | | | +--------+ + + + [...] | + +--------+ + + + | LAB REPORTS | | 10/10/2013 | | Results for this | | | | 12:00 AM | | procedure are in the | | | | PST | | results section. | + +--------+ + + + documented in this encounter Results LAB REPORTS (10/10/2013 12:00 AM PST) + + + | Narrative | Performed At | + + + | | | | | | + + + + + | Procedure Note | + + | Sameera Patel - 11/20/2013 10:13 AM PDT | + + documented in this encounter Visit Diagnoses Not on filedocumented in this encounter"
--- OUTSIDE RECORDS SUMMARY | ~2019-08-03 | XMS | Encounter Summary ---
Demographics + + + | Address | [address] | | | [place] [address] | + + + | Home Phone | | + + + | Preferred Language | Unknown | + + + | Marital Status | Single | + + + | Holiness Affiliation | BAP | + + + | Race | or | + + + | Ethnic Group | Not or | + + + Author + + + | Author | [facility] | + + + | Organization | [facility] | + + + | [...] Team Providers + +------+ + | Care Heel Dipper Name | Role | Phone | + +------+ + | Gracie Mariano MD | PCP | | + +------+ + Reason for Visit + + + | Reason | Comments | + + + | RT Clinical | | | Treatment Planning | | | Note | | + + + Encounter Details +--------+ + + + + | Date | Type | Department | Care Team | Description | +--------+ + + + + | 03/13/ | Documentati | Radiation Oncology | Raf Smith MD | RT Clinical | | 2013 | on | at [address] | [address] | Treatment Planning | | | | [place] | [address], | Note | | | | [id number] [facility] | [place] [address] | | | | | [facility], | [phone] | | | | | [place] [address] | | | | | | [phone] | | | +--------+ + + + [...]
--- OUTSIDE RECORDS SUMMARY | ~2019-08-03 | XMS | Encounter Summary ---
Demographics + + + | Address | [address] | | | [place] [address] | + + + | Home Phone | | + + + | Preferred Language | Unknown | + + + | Marital Status | Single | + + + | Scientology Affiliation | BAP | + + + | Race | or | + + + | Ethnic Group | Not or | + + + Author + + + | Author | [facility] | + + + | Organization | [facility] | + + + | [...] Team Providers + +------+ + | Care Tie Bucker Name | Role | Phone | + [...] | +--------+ + + + + | 12/28/ | Anesthesia | Endoscopic | Keith Peterson MD | | | 2012 | Event | Procedural Unit at | [address] | | | | | [address] | [facility] | | | | | [address] | [place] [address] | | | | | Mailcode: [id number] | [phone] | | | | | [address] | | | | | | [address], [place] | Nancie Cloud CRNA | | | | | [address] | [address] | | | | | [phone] | [place] | | | | | | [place] [address] | | | | | | [phone] | | | | | | | | +--------+ + + + + Anesthesia Record + + + + + | Procedure Name | Responsible | Anesthesia Start | Anesthesia Stop Time | | | Anesthesiologist | Time | | + + + + + | GIP RICO (A) | Keith Peterson MD | 12/28/12 1345 | 12/28/12 1500 | + + + + + +----+---+ + + | Da | T | Event | Comment | | te | i | | | | | m | | | | | e | | | +----+---+ + + | 05 | 1 | | | | /0 | 2 | | | | 8/ | 4 | | | | 20 | 6 | | | | 13 | | | | +----+---+ + + | | 1 | Pt. Check | Prior to anesthesia start, pt. Identified, examined, chart | | | 2 | | reviewed, PARQ held, anesthetic plan made or approved by | | | 4 | | attending anesthesiologist. NPO status confirmed as appropriate | | | 6 | | for procedure Preoperative evaluation: unchanged | +----+---+ + + | | 1 | Eq Check | Anesthesia machine checked Equipment verified | | | 3 | | | | | 1 | | | | | 8 | | | +----+---+ + + | | 1 | Preprocedur | Pt ID confirmed, informed consent obtained, insertion site | | | 3 | e Checklist | marked, equipment available | | | 3 | | | | | 1 | | | +----+---+ + + | | 1 | An Start | | | | 3 | | | | | 4 | | | | | 5 | | | +----+---+ + + | | 1 | Vitals | Monitors applied Vital signs checked Patient ready for anesthesia | | | 3 | Checked | Patient in GI suit | | | 5 | | | | | 0 | | | +----+---+ + + | | 1 | Note | Patient properly positioned. All pressure points padded. Upper | | | 4 | | extremities and lower extremities in neutral position. Simple | | | 0 | | face mask placed on patient equipped with capnography. All | | | 0 | | standard monitors (BP, ECG, O2 sat, temperature) began. MAC | | | | | anesthesia commenced. Propofol IV infusion started. | +----+---+ + + | | 1 | Abx held | | | | 4 | Not Ordered | | | | 0 | | | | | 2 | | | +----+---+ + + | | 1 | Ready | | | | 4 | | | | | 0 | | | | | 3 | | | +----+---+ + + | | 1 | Timeout | At 1406, prior to the beginning of the procedure, the team paused | | | 4 | | to verify the patient | | | 0 | | | | | 6 | | s identity, the procedure to be performed (in accordance with the | | | | | consent,) and the correct side/site. The patient was positioned | | | | | appropriately. All relevant images and results were properly | | | | | labeled and displayed. We addressed antibiotic prophylaxis and | | | | | fluids for irrigation as applicable to this patient. Any safety | | | | | precautions were addressed. | +----+---+ + + | | 1 | Incision | | | | 4 | | | | | 0 | | | | | 7 | | | +----+---+ + + | | 1 | Surgery end | | | | 4 | | | | | 4 | | | | | 0 | | | +----+---+ + + | | 1 | Anesthesia | | | | 5 | End | | | | 0 | | | | | 0 | | | +----+---+ + + +------+ | Meds | +------+ + + + | Name | Total | + + + | midazolam | 2 mg | + + + | alfentanil | 500 mcg | + + + | propofol INF | 707,400 mcg | + + + + + | Name | + + | O2 Flow Rate (Total Liters) | + + + + | No blood administrations on file. | + + +--------+ + + + | Type | Details | Placement | Removal | +--------+ + + + | RETIRE | 12/28/12; 1256; 12/28/12; 1550; | 12/28/12 1256 by | 12/28/12 1550 by | | D - | 20; Right; Forearm; Lidocaine; | Dianna Goyal RN | Dianna Goyal RN | | Periph | Positive | | | | eral | | | [...] in this encounter Administered Medications + +--------+ +---------+------+------+ | Medication Order | MAR | Action | Dose | Rate | Site | | | Action | Date | | | | + +--------+ +---------+------+------+ | alfentanil (aka ALFENTA) | Given | 12/29/19 | 500 mcg | | | | injection INTRAPROCEDURE PRN, | | 13 2:01 | | | | | Starting Wed12/28/12 at 1401, | | PM PDT | | | | | Until Wed12/28/12 at 1500 | | | | | | + +--------+ +---------+------+------+ +---+---+ | | | +---+---+ + +-------+ +------+---+---+ | midazolam (aka VERSED) | Given | 12/29/19 | 2 mg | | | | injection INTRAPROCEDURE PRN, | | 13 1:59 | | | | | Starting Wed12/28/12 at 1359, | | PM PDT | | | | | Until Wed12/28/12 at 1500, | | | | | | | sedation | | | | | | + +-------+ +------+---+---+ +---+---+ | | | +---+---+ + +---------+ + +--------+---+ | propofol (aka RONNYRIVAN) | New Bag | 12/29/19 | 100 | 70.74 | | | injection INTRAPROCEDURE | | 13 2:00 | mcg/kg/m | mL/hr | | | CONTINUOUS PRN, Starting Wed | | PM PDT | in | | | | 12/28/12 at 1400, Until Wed12/28/12 | | | | | | | at 1500 | | | | | | + +---------+ + +--------+---+ +---+---+ | | | +---+---+ documented in this encounter"
--- OUTSIDE RECORDS SUMMARY | ~2019-08-03 | XMS | Encounter Summary ---
Demographics + + + | Address | [address] | | | [place] [address] | + + + | Home Phone | | + + + | Preferred Language | Unknown | + + + | Marital Status | Single | + + + | Denominational Affiliation | BAP | + + + [...] Team Providers + +------+ + | Care Pallet Repairer Name | Role | Phone | + +------+ + | Gracie Mariano MD | PCP | | + +------+ + Reason for Visit +--------+ + | Reason | Comments | +--------+ + | Preop | | +--------+ + Encounter Details +--------+ + + + + | Date | Type | Department | Care Team | Description | +--------+ + + + + | 05/04/ | Telephone | Preoperative | Aneesh Montemayor | Preop | | 2011 | | Medicine Clinic at | T, [facility] | | | | | [facility] | | | | | | [address] | | | | | | [address] | | | | | | Mailcode: [id number] | | | | | | [facility] | | | | | | [address] [place], [place] | | | | | | [address] | | | | | | [phone] | | | +--------+ + + + [...]
--- OUTSIDE RECORDS SUMMARY | ~2019-08-03 | XMS | Encounter Summary ---
Demographics + + + | Address | [address] | | | [place] [address] | + + + | Home Phone | | + + + | Preferred Language | Unknown | + + + | Marital Status | Single | + + + | Sabianism Affiliation | BAP | + + + | Race | or | + + + | Ethnic Group | Not or | + + + Author + + + | Author | [facility] | + + + | Organization | [facility] | + + + | Address [...] Team Providers + +------+ + | Care Blister Packaging Machine Operator Name | Role | Phone | [...] Anticoagulant | | 2012 | | [address] [address] | COMPUTER INSTRUCTOR [address] | monitoring | | | | [address] | [facility] | | | | | [facility] | [place], [place] | | | | | [address] | [address] | | | | | [facility] | [phone] | | | | | [place], [place] | | | | | | [address] | | | | | | [phone] | | | +--------+ + + + [...]
--- OUTSIDE RECORDS SUMMARY | ~2019-08-03 | XMS | Encounter Summary ---
Demographics + + + | Address | [address] | | | [place] [address] | + + + | Home Phone | | + + + | Preferred Language | Unknown | + + + | Marital Status | Single | + + + | Anabaptism Affiliation | BAP | + + + | Race | or | + + + | Ethnic Group | Not or | + + + Author + + + | Author | [facility] | + + + | Organization | [facility] | + + + | [...] Team Providers + +------+ + | Care Religious Leader Name | Role | Phone | + +------+ + | Gracie Mariano MD | PCP | | + +------+ + Encounter Details +--------+ + + + + | Date | Type | Department | Care Team | Description | +--------+ + + + + | 05/06/ | Staff Appraiser | Orthopaedics at | Maldonado Ewing, | | | 2011 | | [address] [address] | [address] | | | | | [address] | | | | | | Mailcode: [id number] | | | | | | [address] | | | | | | [place], [place] | | | | | | [address] | | | | | | [phone] | | | +--------+ + + + [...]
--- OUTSIDE RECORDS SUMMARY | ~2019-08-03 | XMS | Encounter Summary ---
Demographics + + + | Address | [address] | | | [place] [address] | + + + | Home Phone [...] Author + + + | Author | [facility] | + + + | Organization | [facility] | + + + | Address | Unknown | + + + | Phone | Unavailable | + + + Support + + +---------+ + | Name | Relationship | Address | Phone | + + +---------+ + | Nallely Cisneros | ECON | Unknown | | + + +---------+ + | Jena Funk | ECON | Unknown | Unavailable | + + +---------+ + Care Team Providers + +------+ + | Care Feed Mill Manager Name | Role | Phone | [...] | +--------+ + + + + | 10/19/ | Telephone | Rheumatology at | Dhiraj Carole [place], | Other | | 2015 | | [facility] [place] | [address] | | | | | [address] | [address] | | | | | Loop Mailcode: [id number] | [place], [place] | | | | | Physician's | [address] | | | | | [place], | [phone] | | | | | [place] [address] | | | | | | [phone] | | | +--------+ + + + [...]
--- OUTSIDE RECORDS SUMMARY | ~2019-08-03 | XMS | Encounter Summary ---
Demographics + + + | Address | [address] | | | [place] [address] | + + + | Home Phone | | + + + | Preferred Language | Unknown | + + + | Marital Status | Single | + + + | Scientologist Affiliation | BAP | + + + | Race | or | + + + | Ethnic Group | Not or | + + + Author + + + | Author | [facility] | + + + | Organization | [facility] | + + + | [...] Team Providers + +------+ + | Care Pattern Ruler Name | Role | Phone | + [...] [facility] | | | | | | [address] | | | | | | Loop Mailcode: | | | | | | [id number] Physician's | | | | | | [place], | | | | | | [place] [address] | | | | | | [phone] | | | +--------+ + + + [...] | | | | VIEWS | ONE-VIEW PELVIS: | | | | | RIGHT W/ | 05/23/2009 Dictated | | | | | PELVIS 1 | 05/23/2009COMPARISON: | | | | | VIEW | None.FINDINGS: There | | | | [...] | | | | | fracture is identified. | | | | | | Mild irregularity is | | | | | | present inboth ischial | | | | | [...] | | | | | | Vaishnavi THOMASSTATUS FINAL | | | | | | / Dr. ROGERIO GUILLERMO | | | | | | PRELIMINARY [...] | | + +---------+ + + | [facility] DEPARTMENT OF | | | | | RADIOLOGY | | | | + +---------+ + + documented in this encounter Visit Diagnoses + + | Diagnosis | + + | Hip pain Pain in joint, pelvic region and thigh | + + documented in this encounter"
--- OUTSIDE RECORDS SUMMARY | ~2019-08-03 | XMS | Encounter Summary ---
Demographics + + + | Address | [address] | | | [place] [address] | + + + | Home Phone | | + + + | Preferred Language | Unknown | + + + | Marital Status | Single | + + + | Yazdanism Affiliation | 1041 | + + + | Race | Unknown | + + + | Ethnic Group | Unknown | + + + Author + + + | Author | [facility] | | | and [place] | + + + | Organization | [facility] | | | and [...] Team Providers + +------+ + | Care Senior Account Representative Name | Role | Phone | + +------+ + | Scooby Mcclure DO | PCP | | + +------+ + Encounter Details +--------+ + + + + | Date | Type | Department | Care Team | Description | +--------+ + + + + | 03/10/ | Orders Only | [facility] GENERIC OP | Conversion | | | 2018 | | CONVERSION DEP [address] | Transaction, | | | | | [address] | Provider Unknown | | | | | [place] | [phone] | | | | | [address] | | | | | | [phone] | | | +--------+ + + + + Social History + +-------+ +--------+------+ | Tobacco Use | Types | Packs/Day | Years | Date | | | | | Used | | + +-------+ +--------+------+ | Never Assessed | | | | | + +-------+ [...] as of this encounter Plan of Treatment +--------+---------+ + + + | Date | Type | Specialty | Care Team | Description | +--------+---------+ + + + | 09/14/ | Office | Neurology | Sarahi Jade, | | | 2019 | Visit | | MD [address] | | | | | | [address] | | | | | | [place] [address] | | | | | | [phone] | | | | | | | | +--------+---------+ + + + | 11/26/ | Office | Cardiology | Sissy Noyola | | | 2020 | Visit | | MD [address] | | | | | | [place] | | | | | | [address] | | | | | | | | +--------+---------+ + + + documented as of this encounter Visit Diagnoses Not on filedocumented in this encounter"
--- OUTSIDE RECORDS SUMMARY | ~2019-08-03 | XMS | Encounter Summary ---
Demographics + + + | Address | [address] | | | [place] [address] | + + + | Home Phone [...] + + + | Author | [facility] | + + + | Organization | [facility] | + + + | [...] Team Providers + +------+ + | Care Acoustics Teacher Name | Role | Phone | + +------+ + | Scooby Mcclure MD | PCP | | + +------+ + Encounter Details +--------+ + + + + | Date | Type | Department | Care Team | Description | +--------+ + + + + | 05/17/ | Primary Products Inspectors | Spine Center at | Arline Paige, | Closed displaced | | 2018 | | [facility] [address] | PA-C [address] | fracture of second | | | | Ave Mailcode: | Ave [place], [place] | cervical vertebra, | | | | [facility] | [address] | unspecified fracture | | | | and Healing, | [phone] | morphology, initial | | | | [address] | | encounter (HCC) | | | | [place], [place] | | (Primary Dx) | | | | [address] | | | | | | [phone] | | | +--------+ + + + [...] + + documented as of this encounter Functional Status + + + [...]
--- OUTSIDE RECORDS SUMMARY | ~2019-08-03 | XMS | Encounter Summary ---
Demographics + + + | Address | [address] | | | [place] [address] | + + + | Home Phone | | + + + | Preferred Language | Unknown | + + + | Marital Status | Single | + + + | Yarsanism Affiliation | BAP | + + + | Race | or | + + + | Ethnic Group | Not or | + + + Author + + + | Author | [facility] | + + + | Organization | [facility] | + + + | [...] Team Providers + +------+ + | Care Journalism Intern Name | Role | Phone | + +------+ + | Gracie Mariano MD | PCP | | + +------+ + Encounter Details +--------+ + + + + | Date | Type | Department | Care Team | Description | +--------+ + + + + | 11/28/ | Documentati | Orthopaedics at | Linnea Calvo PA | | | 2016 | on | [facility] [address] | [address] | | | | | Ave Mailcode: CH12A | [place], [place] | | | | | [facility] | [address] | | | | | and Zack, | [phone] | | | | | [facility] | | | | | | Floor [facility] [place] | | | | | | [address] | | | | | | [phone] | | | +--------+ + + + [...]
--- OUTSIDE RECORDS SUMMARY | ~2019-08-03 | XMS | Encounter Summary ---
Demographics + + + | Address | [address] | | | [place] [address] | + + + | Home Phone [...] Author + + + | Author | [facility] | + + + | Organization | [facility] | + + + | Address | [...] Team Providers + +------+ + | Care Bacon Skinner Name | Role | Phone | + +------+ + | Gracie Mariano MD | PCP | | + +------+ + Reason for Visit + + + | Reason | Comments | + + + | Medical Records | [facility] - OUTSIDE RECORDS | | Review | | + + + Encounter Details +--------+ + + + + | Date | Type | Department | Care Team | Description | +--------+ + + + + | 12/04/ | Abstract | Digestive Health | Adriano Chavez, | Medical Records | | 2013 | | Center at [facility] [address] | MD | Review ([facility] | | | | [address] | | OUTSIDE RECORDS) | | | | Mailcode: [address] | | | | | | for Health and | | | | | | [facility], [facility] [address] | | | | | | [place], [place] | | | | | | [address] | | | | | | [phone] | | | +--------+ + + + [...]
--- OUTSIDE RECORDS SUMMARY | ~2019-08-03 | XMS | Encounter Summary ---
Demographics + + + | Address | [address] | | | [place] [address] | + + + | Home Phone | | + + + | Preferred Language | Unknown | + + + | Marital Status | Single | + + + | Druze Affiliation | 1041 | + + + | Race | Unknown | + + + | Ethnic Group | Unknown | + + + Author + + + | Author | [facility] | | | and [place] | + + + | Organization | [facility] | | | and [place] [...] Team Providers + +------+ + | Care Blow Mold Technician Name | Role | Phone | + +------+ + PCP | Unavailable | + +------+ + Encounter Details +--------+ + + + + | Date | Type | Department | Care Team | Description | +--------+ + + + + | 08/19/ | [facility] | [facility] | Ino Neri | | | 2006 | Encounter | MED CTR LAB[facility]ORY | MD [address] | | | | | [address] | [place], [place] | | | | | [place] | [address] | | | | | [address] | | | | | | [phone] | | | +--------+ + + + [...] [place] | | | | | | [address] | | | | | | [place] [address] | | | | | | [phone] | | | | | | | | +--------+---------+ + + + | 11/26/ | Office | Cardiology | Sissy Noyola | | | 2020 | Visit | | MD [address] | | | | | | [place] | | | | | | [address] | | | | | | | | +--------+---------+ + + + documented as of this encounter Visit Diagnoses Not on filedocumented in this encounter"
--- OUTSIDE RECORDS SUMMARY | ~2019-08-03 | XMS | Encounter Summary ---
Demographics + + + | Address | [address] | | | [place] [address] | + + + | Home Phone | | + + + | Preferred Language | Unknown | + + + | Marital Status | Single | + + + | Lutheran Affiliation | BAP | + + + | Race | or | + + + | Ethnic Group | Not or | + + + Author + + + | Author | [facility] | + + + | Organization | [facility] | + + + [...] Providers + +------+ + | Care Senior Financial Reporting Accountant Name | Role | Phone | + +------+ + | Gracie Mariano MD | PCP | | + +------+ + Encounter Details +--------+ + + + + | Date | Type | Department | Care Team | Description | +--------+ + + + + | 06/22/ | Abstract | Endoscopic | Harinder Felton, | | | 2012 | | Procedural Unit at | MD [address] | | | | | [address] | [place] [address] | | | | | [address] | [phone] | | | | | Mailcode: [id number] | | | | | | [address] | | | | | | [address] [place], [place] | | | | | | [address] | | | | | | [phone] | | | +--------+ + + + [...]
--- OUTSIDE RECORDS SUMMARY | ~2019-08-03 | XMS | Encounter Summary ---
Demographics + + + | Address | [address] | | | [place] [address] | + + + | Home Phone | | + + + | Preferred Language | Unknown | + + + | Marital Status | Single | + + + | Episcopal Affiliation | 1041 | + + + | Race | Unknown | + + + | Ethnic Group | Unknown | + + + Author + + + | Author | [facility] | | | and [place] | + + + | Organization | [facility] | | | and [...] Team Providers + +------+ + | Care Ignition Specialist Name | Role | Phone | + +------+ + PCP | Unavailable | + +------+ + Encounter Details +--------+ + + + + | Date | Type | Department | Care Team | Description | +--------+ + + + + | 02/15/ | Hospital | [facility] GENERIC IP | Conversion | Other headache | | 2018 | Encounter | CONVERSION DEP [address] | Transaction, | syndrome | | | | [address] | Provider Unknown | | | | | [place] | | | | | | [phone] | (Fax) | | | | | | | [...] mg by mouth | | 0 | 05/18/20 | | | (ZYLOPRIM) 100 mg | [...] mg by mouth | | 0 | /20 | | | mg tablet | every [...] mg by mouth | | 0 | / | | | 20 mg/mL | every [...] 1 tablet by | | 0 | /18/20 | | | Vitamins-Minerals | mouth daily. | | | 17 | | | (MULTIVITAMIN WITH | Indications: Take 1 | | | | | | MINERALS) tablet | tab q day | | | | | + + + +---------+ + + | lisinopril | Take 1 tablet by | 30 | 0 | 01/23/20 | | | (PRINIVIL, ZESTRIL) | mouth daily. | tablet | | 17 | 9 | | 20 mg tablet | | | | | | + + + +---------+ + + documented as of this encounter Plan of Treatment +--------+---------+ + + + | Date | Type | Specialty | Care Team | Description | +--------+---------+ + + + | 09/14/ | Office | Neurology | Sarahi Jade, | | | 2020 | Visit | | MD [address] [place] | | | | | | [address] | | | | | | [place] [address] | | | | | | [phone] | | | | | | | | +--------+---------+ + + + | 11/26/ | Office | Cardiology | Sissy Noyola | | | 2020 | Visit | | MD [address] | | | | | | [place] | | | | | | [address] | | | | | | | | +--------+---------+ + + + documented as of this encounter Procedures + +--------+ + + + | Procedure Name | Priori | Date/Time | Associated Diagnosis | Comments | | | ty | | | | + +--------+ + + + | CT HEAD WO CONTRAST | Routin | 02/15/2018 | | Results for this | | | e | 12:23 PM | | procedure are in the | | | | PDT | | results section. | + +--------+ + + + documented in this encounter Results CT Head wo Contrast (02/15/2018 12:23 PM PDT) + + | Specimen | + + | | + + + + + | Narrative | Performed At | + + + | This is a non-reportable procedure without a radiologist report and | | | is used for image storage only | | + + + + + | Procedure Note | + + | Vamsi Guillaume Jorden - 04/05/2019 4:06 AM PDT This is a non-reportable procedure | | without a radiologist report and isused for image storage only | + + documented in this encounter Visit Diagnoses + + | Diagnosis | + + | Other headache syndrome | + + documented in this encounter"
--- OUTSIDE RECORDS SUMMARY | ~2019-08-03 | XMS | Encounter Summary ---
Demographics + + + | Address | [address] | | | [place] [address] | + + + | Home Phone [...] Team Providers + +------+ + | Care Registered Nurse Fetal Name | Role | Phone | + [...] | +--------+ + + + + | 02/18/ | Anesthesia | 6A Intra Op 3181 | Ricky Wilson, | | | 2018 | Event | MARYLOU Hernandez | MD [address] | | | | | [facility] | [address] | | | | | Hospital Admitting | [place], [place] | | | | | Desk Located on the | [address] | | | | | 9th floor | [phone] | | | | | [place], [place] | | | | | | [address] | Juancarlos Cruz CRNA | | | | | | [address] | | | | | | [facility] | | | | | | [place] [address] | | | | | | [phone] | | | | | | | | +--------+ + + + + Anesthesia Record + + + + + | Procedure Name | Responsible | Anesthesia Start | Anesthesia Stop Time | | | Anesthesiologist | Time | | + + + + + | EXTENSION OF FUSION | Ricky Wilson MD | 02/18/18 0724 | 02/18/18 1247 | | TO OCCIPUT C1 | | | | | LAMINECTOMY (N/A | | | | | Neck) | | | | + + + + + +----+---+ + + | Da | T | Event | Comment | | te | i | | | | | m | | | | | e | | | +----+---+ + + | 06 | 0 | Eq Check | Anesthesia machine checked Equipment verified | | /2 | 6 | | | | 9/ | 5 | | | | 20 | 7 | | | | 18 | | | | +----+---+ + + | | 0 | Pt. Check | Prior to anesthesia start, pt. Identified, examined, chart | | | 6 | | reviewed, PARQ held, anesthetic plan made or approved by | | | 5 | | attending anesthesiologist. NPO status confirmed as appropriate | | | 7 | | for procedure Preoperative evaluation: unchanged | +----+---+ + + | | 0 | An Start | | | | 7 | | | | | 2 | | | | | 4 | | | +----+---+ + + | | 0 | An Start | | | | 7 | Data | | | | 2 | | | | | 9 | | | +----+---+ + + | | 0 | Vitals | Monitors applied Vital signs checked Patient ready for anesthesia | | | 7 | Checked | | | | 3 | | | | | 8 | | | +----+---+ + + | | 0 | ETT | | | | 7 | | | | | 5 | | | | | 2 | | | +----+---+ + + | | 0 | Art Line | Took 7 minutes | | | 8 | | | | | 0 | | | | | 8 | | | +----+---+ + + | | 0 | Ready | | | | 8 | | | | | 1 | | | | | 0 | | | +----+---+ + + | | 0 | an laurie now | | | | 8 | | | | | 4 | | | | | 1 | | | +----+---+ + + | | 0 | Local | | | | 9 | Anesthetic | | | | 1 | by Surgeon | | | | 5 | | | +----+---+ + + | | 0 | Abx | | | | 9 | Administere | | | | 2 | d | | | | 1 | | | +----+---+ + + | | 0 | Incision | | | | 9 | | | | | 3 | | | | | 1 | | | +----+---+ + + | | 0 | AN | | | | 9 | Recruitment | | | | 4 | Breath | | | | 5 | | | +----+---+ + + | | 1 | Quick Note | Art line dampened by neuromonitoring briefly | | | 1 | | | | | 0 | | | | | 2 | | | +----+---+ + + | | 1 | Quick Note | Neuro-monitoring completed. | | | 1 | | | | | 2 | | | | | 5 | | | +----+---+ + + | | 1 | ICU Handoff | Procedure Anesthetic Brief History Relevant | | | 2 | Call | Meds/Labs/Echo/Imaging Difficult airway? Intraoperative Course: | | | 0 | | Lines/drains EBL Significant Events Meds: Infusions, | | | 0 | | Antibiotics/Redosing, Paralytics (last dose and time), Analgesic | | | | | Plan Central line- will review image and place order in PACU | | | | | Surgeon concerns | +----+---+ + + | | 1 | Surgery end | | | | 2 | | | | | 1 | | | | | 7 | | | +----+---+ + + | | 1 | Quick Note | Cuff leak present | | | 2 | | | | | 2 | | | | | 8 | | | +----+---+ + + | | 1 | An Extubate | Neuromuscular function Intact. Pharynx suctioned. Patient obeys | | | 2 | | commands. Adequate pulmonary mechanics. | | | 3 | | | | | 3 | | | +----+---+ + + | | 1 | an stop | | | | 2 | data | | | | 3 | | | | | 5 | | | +----+---+ + + | | 1 | PACU Rpt | | | | 2 | Given | | | | 4 | | | | | 6 | | | +----+---+ + + | | 1 | Anesthesia | | | | 2 | End | | | | 4 | | | | | 7 | | | +----+---+ + + +------+ | Meds | +------+ + + + | Name | Total | + + + | rocuronium | 50 mg | + + + | propofol | 450 mg | + + + | ketamine | 50 mg | + + + | PHENYLEPHrine | 600 mcg | + + + | vasopressin | 15 Units | + + + | PHENYLEPHrine INF (50 mg/250 mL) | 5,862.4 mcg | + + + | ceFAZolin | 3,000 mg | + + + | insulin regular INF (1unit/mL) | 8.15 Units | + + + | insulin regular | 6 Units | + + + | fentaNYL (SUBLIMAZE) injection | 200 mcg | + + + | lidocaine 2% | 100 mg | + + + | dexmedetomidine INF (4 mcg/mL) | 161.06 mcg | + + + | propofol INF | 2,888,262.5 mcg | + + + | HYDROmorphone (DILAUDID) | 0 mg | | injection 0.5-1 mg | | + + + | ondansetron | 4 mg | + + + | HYDROmorphone | 2 mg | + + + | neostigmine | 1.5 mg | + + + | glycopyrrolate | 0.2 mg | + + + | hydrALAZINE | 10 mg | + + + | esmolol | 30 mg | + + + | LR | 2,900 mL | + + + | LR | 500 mL | + + + + + | Name | + + | O2 FR Avance (Total Liters) | + + | Air FR Avance (l/min) | + + | Insp Iso | + + | Et Iso | + + | EtN2O % | + + | Insp N2O % | + + + + | No blood administrations on file. | + + +--------+ + + + | Type | Details | Placement | Removal | +--------+ + + + | Incisi | 02/18/18; Posterior; cervical | 02/18/18 0000 by | | | on | spine | Nancy Kinney RN | | +--------+ + + + | Periph | 02/15/18; Other hospital; Right; | 02/15/18 0000 by | 02/19/18 1900 by | | eral | Antecubital; 18 g; 02/19/18; | Anais Alonso, | Jane Dominguez RN | | IV | 1900; Site problems | RN | | +--------+ + + + | Periph | 02/18/18; 0600; KARISSA Duran; | 02/18/18 0600 by | 02/18/18 1248 by | | eral | Left; Antecubital; 18 g; Yes; | Latasha Cali RN | Nallely Lund CRNA | | IV | Positive; 02/18/18; 1248 | | | +--------+ + + + | Urethr | 02/18/18; 0751; Chepe; 16 Fr.; 10 | 02/18/18 0751 by | 02/19/18 1522 by | | al | mL; 02/19/18; 1522 | Nancy Kinney RN | Lizzy Jenkins RN | | Cathet | | | | | er | | | | +--------+ + + + | Periph | 02/18/18; 0758; Right; Dorsal; | 02/18/18 0758 by | 02/20/18 0000 by | | eral | Hand; 18 g; No; Positive; | Nallely Lund CRNA | Jane Dominguez RN | | IV | 02/20/18; 0000; Site problems | | | +--------+ + + + | Drain | 02/18/18; 1137; Dr. Barroso; | 02/18/18 1137 by | 02/20/18 0800 by | | | Hemovac; Posterior; neck; | Nancy Kinney RN | Gino Brenner RN | | | 02/20/18; 0800 | | | +--------+ + + + [...] | + +--------+ + + + | IBAN GAYTAN | Routin | 02/18/2018 | | Results for this | | | e | 9:52 AM | | procedure are in the | | | | PDT | | results section. | + +--------+ + + + documented in this encounter Results IBAN GAYTAN (02/18/2018 9:52 AM PDT) + + + | Narrative | Performed At | + + + | Nallely Lund CRNA 02/18/2018 10:03 AM Procedure Reason for | | | Intubation: For surgical procedure, Location Performed: [place] , Patient | | | was preoxygenated Mask Ventilation Grade 2 - Ventilated by mask | | | with oral airway/adjuvant Intubation Intubation adjuncts: | | | Exchange catheter , Fiberoptics used: Bronchoscope / Fiberoptic , | | | Number of Attempts: 1, Positive for EtCO2: Yes, Breath sounds: | | | Bilateral and equal ETT Ett Adult: Dexter ETT Size: 7.5 | | | ETT secured with: adhesive tape Depth at Lip: 22 Cm Airway | | | leak: No Narrative Attending physically present IV | | | induction, easy mask with oral airway. Placed #5 classic LMA, poor | | | fit, improved with rocuronium. Unsuccessful fiberoptic with [place] | | | through LMA. Removed LMA and used fiberoptic loaded with [place]. | | | Poor anatomic landmarks d/t excess soft tissue. Visualized | | | pamela, tube passed over Aintree. Tube placement verified and | | | secured. Lips, oral mucosa and teeth intact. | | + + + documented in this encounter Visit Diagnoses Not on filedocumented in this encounter Administered Medications + +--------+ + +------+------+ | Medication Order | MAR | Action | Dose | Rate | Site | | | Action | Date | | | | + +--------+ + +------+------+ | ceFAZolin (ANCEF) injection | Given | 02/19/20 | 3,000 mg | | | | intravenous, INTRAPROCEDURE PRN, | | 18 9:21 | | | | | Starting 02/18/18 at 0921, | | AM PDT | | | | | Until 02/18/18 at 1235 | | | | | | + +--------+ + +------+------+ +---+---+ | | | +---+---+ + +---------+ + +--------+---+ | dexmedetomidine (PRECEDEX) IV | New Bag | 02/19/20 | 0.4 | 11.45 | | | infusion INTRAPROCEDURE | | 18 7:57 | mcg/kg/h | mL/hr | | | CONTINUOUS PRN, Starting Fri | | AM PDT | r | | | | 02/18/18 at 0757, Until Fri | | | | | | | 02/18/18 at 1235 | | | | | | + +---------+ + +--------+---+ +---+---+ | | | +---+---+ + +-------+ +-------+---+---+ | esmolol (BREVIBLOC) injection | Given | 02/19/20 | 30 mg | | | | intravenous, INTRAPROCEDURE PRN, | | 18 12:25 | | | | | Starting 02/18/18 at 1225, | | PM PDT | | | | | Until 02/18/18 at 1235 | | | | | | + [...] | +---+---+ + +-------+ +--------+---+---+ | glycopyrrolate (DEBBIE) | Given | 02/19/20 | 0.2 mg | | | | injection INTRAPROCEDURE PRN, | | 18 11:58 | | | | | Starting Wed02/18/18 at 1158, | | AM PDT | | | | | Until Wed02/18/18 at 1235 | | | | | | + +-------+ +--------+---+---+ +---+---+ | | | +---+---+ + +-------+ +-------+---+---+ | hydrALAZINE (APRESOLINE) | Given | 02/19/20 | 10 mg | | | | injection intravenous, | | 18 12:10 | | | | | INTRAPROCEDURE PRN, Starting Fri | | PM PDT | | | | | 02/18/18 at 1210, Until Fri | | | | | | | 02/18/18 at 1235 | | | | | | + +-------+ +-------+---+---+ +---+---+ | | | +---+---+ + +-------+ +--------+---+---+ | HYDROmorphone (DILAUDID) | Given | 02/19/20 | 0.5 mg | | | | injection INTRAPROCEDURE PRN, | | 18 12:43 | | | | | Starting 02/18/18 at 1151, | | PM PDT | | | | | Until 02/18/18 at 1235 | | | | | | + +-------+ +--------+---+---+ +-------+ +--------+---+---+ | Given | 02/19/20 | 0.5 mg | | | | | 18 12:35 | | | | | | PM PDT | | | | +-------+ +--------+---+---+ | Given | 02/19/20 | 0.5 mg | | | | | 18 11:54 | | | | | | AM PDT | | | | +-------+ +--------+---+---+ +---+---+ | | | +---+---+ + +-------+ +---------+---+---+ | insulin regular bolus from | Given | 02/19/20 | 2 Units | | | | continuous infusion | | 18 10:49 | | | | | INTRAPROCEDURE PRN, Starting Fri | | AM PDT | | | | | 02/18/18 at 0930, Until Fri | | | | | | | 02/18/18 at 1235 | | | | | | + +-------+ +---------+---+---+ +-------+ +---------+---+---+ | Given | 02/19/20 | 4 Units | | | | | 18 9:30 | | | | | | AM PDT | | | | +-------+ +---------+---+---+ +---+---+ | | | +---+---+ + +---------+ + +---------+---+ | insulin regular in NaCl 0.9% IV | New Bag | 02/19/20 | 3 | 3 mL/hr | | | infusion (1 unit/mL) | | 18 9:30 | Units/hr | | | | INTRAPROCEDURE CONTINUOUS PRN, | | AM PDT | | | | | Starting 02/18/18 at 0930, | | | | | | | Until 02/18/18 at 1235 | | | | | | + +---------+ + +---------+---+ +---+---+ | | | +---+---+ + +-------+ +-------+---+---+ | ketamine (KETALAR) injection | Given | 02/19/20 | 50 mg | | | | INTRAPROCEDURE PRN, Starting Fri | | 18 8:08 | | | | | 02/18/18 at 0808, Until Fri | | AM PDT | | | | | 02/18/18 at 1235 | | | | | | + +-------+ +-------+---+---+ +---+---+ | | | +---+---+ + + + +---+---+---+ | lactated Ringers IV | given by | 02/19/20 | | | | | INTRAPROCEDURE CONTINUOUS PRN, | | 18 12:05 | | | | | Starting Wed02/18/18 at 0724, | anesthes | PM PDT | | | | | Until Wed02/18/18 at 1235 | iology | | | | | + + + +---+---+---+ + + +---+---+---+ | given by anesthesiology | 02/19/20 | | | | | | 18 11:22 | | | | | | AM PDT | | | | + + +---+---+---+ | given by anesthesiology | 02/19/20 | | | | | | 18 10:21 | | | | | | AM PDT | | | | + + +---+---+---+ +---+---+ | | | +---+---+ + + + +---+---+---+ | lactated Ringers IV | given by | 02/19/20 | | | | | INTRAPROCEDURE CONTINUOUS PRN, | | 18 12:08 | | | | | Starting 02/18/18 at 0754, | anesthes | PM PDT | | | | | Until 02/18/18 at 1235 | iology | | | | | + + + +---+---+---+ +---------+ +---+---+---+ | New Bag | 02/19/20 | | | | | | 18 7:54 | | | | | | AM PDT | | | | +---------+ +---+---+---+ +---+---+ | | | +---+---+ + +-------+ +--------+---+---+ | lidocaine PF (XYLOCAINE MPF) 20 | Given | 02/19/20 | 100 mg | | | | mg/mL (2 %) injection | | 18 7:41 | | | | | INTRAPROCEDURE PRN, Starting Fri | | AM PDT | | | | | 02/18/18 at 0741, Until Fri | | | | | | | 02/18/18 at 1235 | | | | | | + +-------+ +--------+---+---+ +---+---+ | | | +---+---+ + +-------+ +--------+---+---+ | neostigmine (PROSTIGMIN) | Given | 02/19/20 | 1.5 mg | | | | injection intravenous, | | 18 11:58 | | | | | INTRAPROCEDURE PRN, Starting Fri | | AM PDT | | | | | 02/18/18 at 1158, Until Fri | | | | | | | 02/18/18 at 1235 | | | | | | + +-------+ +--------+---+---+ +---+---+ | | | +---+---+ + +-------+ +------+---+---+ | ondansetron (ZOFRAN) injection | Given | 02/19/20 | 4 mg | | | | INTRAPROCEDURE PRN, Starting Fri | | 18 11:51 | | | | | 02/18/18 at 1151, Until Fri | | AM PDT | | | | | 02/18/18 at 1235 | | | | | | + +-------+ +------+---+---+ +---+---+ | | | +---+---+ + +-------+ +---------+---+---+ | PHENYLEPHrine 100 mcg/mL IV | Given | 02/19/20 | 200 mcg | | | | syringe INTRAPROCEDURE PRN, | | 18 8:30 | | | | | Starting 02/18/18 at 0752, | | AM PDT | | | | | Until 02/18/18 at 1235 | | | | | | + +-------+ +---------+---+---+ +-------+ +---------+---+---+ | Given | 02/19/20 | 200 mcg | | | | | 18 8:26 | | | | | | AM PDT | | | | +-------+ +---------+---+---+ | Given | 02/19/20 | 100 mcg | | | | | 18 8:12 | | | | | | AM PDT | | | | +-------+ +---------+---+---+ +---+---+ | | | +---+---+ + + + + +-------+---+ | PHENYLEPHrine 50 mg/250 mL (0.2 | Rate/Dos | 02/19/20 | 0.2 | 6.87 | | | mg/mL) IV infusion (ADC) | e Change | 18 11:45 | mcg/kg/m | mL/hr | | | intravenous, INTRAPROCEDURE | | AM PDT | in | | | | CONTINUOUS PRN, Starting Fri | | | | | | | 02/18/18 at 0904, Until Fri | | | | | | | 02/18/18 at 1235 | | | | | | + + + + +-------+---+ + + + +--------+---+ | Rate/Dose Change | 02/19/20 | 0.4 | 13.74 | | | | 18 11:44 | mcg/kg/m | mL/hr | | | | AM PDT | in | | | + + + +--------+---+ | Rate/Dose Change | 02/19/20 | 0.6 | 20.61 | | | | 18 11:40 | mcg/kg/m | mL/hr | | | | AM PDT | in | | | + + + +--------+---+ +---+---+ | | | +---+---+ + + + + +-------+---+ | propofol (DIPRIVAN) injection | Rate/Dos | 02/19/20 | 100 | 68.7 | | | INTRAPROCEDURE CONTINUOUS PRN, | e Change | 18 10:46 | mcg/kg/m | mL/hr | | | Starting Wed02/18/18 at 0757, | | AM PDT | in | | | | Until Wed02/18/18 at 1235 | | | | | | + + + + +-------+---+ +---------+ + +--------+---+ | New Bag | 02/19/20 | 125 | 85.88 | | | | 18 7:57 | mcg/kg/m | mL/hr | | | | AM PDT | in | | | +---------+ + +--------+---+ +---+---+ | | | +---+---+ + +-------+ +-------+---+---+ | propofol INTRAPROCEDURE PRN, | Given | 02/19/20 | 50 mg | | | | Starting 02/18/18 at 0808, | | 18 8:08 | | | | | Until 02/18/18 at 1235 | | AM PDT | | | | + +-------+ +-------+---+---+ +-------+ +-------+---+---+ | Given | 02/19/20 | 50 mg | | | | | 18 7:57 | | | | | | AM PDT | | | | +-------+ +-------+---+---+ | Given | 02/19/20 | 50 mg | | | | | 18 7:51 | | | | | | AM PDT | | | | +-------+ +-------+---+---+ +---+---+ | | | +---+---+ + +-------+ +-------+---+---+ | rocuronium (ZEMURON) injection | Given | 02/19/20 | 20 mg | | | | INTRAPROCEDURE PRN, Starting Fri | | 18 8:08 | | | | | 02/18/18 at 0808, Until Fri | | AM PDT | | | | | 02/18/18 at 1235 | | | | | | + +-------+ +-------+---+---+ +-------+ +-------+---+---+ | Given | 02/19/20 | 30 mg | | | | | 18 7:48 | | | | | | AM PDT | | | | +-------+ +-------+---+---+ +---+---+ | | | +---+---+ + +-------+ +---------+---+---+ | vasopressin (PITRESSIN) | Given | 02/19/20 | 1 Units | | | | injection INTRAPROCEDURE PRN, | | 18 9:00 | | | | | Starting 02/18/18 at 0830, | | AM PDT | | | | | Until 02/18/18 at 1235 | | | | | | + +-------+ +---------+---+---+ +-------+ + +---+---+ | Given | 02/19/20 | 11 Units | | | | | 18 8:55 | | | | | | AM PDT | | | | +-------+ + +---+---+ | Given | 02/19/20 | 1 Units | | | | | 18 8:52 | | | | | | AM PDT | | | | +-------+ + +---+---+ +---+---+ | | | +---+---+ documented in this encounter"
--- OUTSIDE RECORDS SUMMARY | ~2019-08-03 | XMS | Encounter Summary ---
Demographics + + + | Address | [address] | | | [place] [address] | + + + | Home Phone [...] Author + + + | Author | [facility] | + + + | Organization | [facility] | + + + | [...] Team Providers + +------+ + | Care Advertising Sales Representative Name | Role | Phone | + +------+ + | Gracie Mariano MD | PCP | | + +------+ + Encounter Details +--------+ + + + + | Date | Type | Department | Care Team | Description | +--------+ + + + + | 04/26/ | Hospital | Diagnostic | | | | 2013 | Encounter | Radiology at [facility] | | | | | | [address] | | | | | | Loop Mailcode: | | | | | | [address] [facility] | | | | | | [place], | | | | | | [place] [address] | | | | | | [phone] | | | +--------+ + + + [...] X-RAY HIP 2 VIEWS | Routin | 04/26/2014 | Osteoarthrosis, | Results for this | | RIGHT W/ PELVIS 1 | e | 9:53 AM | hip | procedure are in [...] | | | | | loosening. No fracture | | | | | | or focal | | | | | [...] | | + +---------+ + + | [facility] | | | | | RADIOLOGY | | | | + +---------+ + + documented in this encounter Visit Diagnoses + + | Diagnosis | + + | Osteoarthrosis, hip Localized osteoarthrosis not specified whether primary or | | secondary, pelvic region and thigh | + + documented in this encounter"
--- OUTSIDE RECORDS SUMMARY | ~2019-08-03 | XMS | Encounter Summary ---
Demographics + + + | Address | [address] | | | [place] [address] | + + + | Home Phone | | + + + | Preferred Language | Unknown | + + + | Marital Status | Single | + + + | Congregation Affiliation | BAP | + + + | Race | or | + + + | Ethnic Group | Not or | + + + Author + + + | Author | [facility] | + + + | Organization | [facility] | + + + | [...] Team Providers + +------+ + | Care Med Dir Name | Role | Phone | + [...] 03/12/ | Anesthesia | [address] Op [address] | Bella Lion MD | | | 2013 | Event | [address] | [address] | | | | | [facility] | [place] [facility] | | | | | Hospital Admitting | [place] [address] | | | | | Desk Located on the | [phone] | | | | | 9th floor | | | | | | [place], [place] | Karyna Reina MD | | | | | [address] | [address] | | | | | | [place] | | | | | | [place] [address] | | | | | | [phone] | | | | | | | [...] | | | 8 | | reviewed, MIGUELITO held, anesthetic plan made or approved by [...] | Periph | 3006--contact admin for | [employer] | Discharge | | eral | questions.); 1621 (Automatic | | | | Line | [...] + + + | RETIRE | 03/12/14; 0736; 03/14/14; 0951; | 03/12/14 0736 by | 03/14/14 0951 by | | D - | 20; [...] 9:00 | | | | | Starting 03/12/14 at 0900, | | AM PDT | [...] | +---+---+ + +-------+ +--------+---+---+ | glycopyrrolate (ROBLEESAUL) | Given | 03/12/20 | 0.6 mg [...] | | | | Until Wed03/12/14 at 1113, | | | | | [...] 10:54 | | | | | Starting 03/12/14 at 0829, | anesthes | AM PDT [...] 8:37 | | | | | Until 03/12/14 at 1113 | | AM PDT | [...]
--- OUTSIDE RECORDS SUMMARY | ~2019-08-03 | XMS | Encounter Summary ---
Demographics + + + | Address | [address] | | | [place] [address] | + + + | Home Phone [...] Author + + + | Author | [facility] | + + + | Organization | [facility] | + + + | [...] Team Providers + +------+ + | Care Commercial Marketing Specialist Name | Role | Phone | + +------+ + | Gracie Mariano MD | PCP | | + +------+ + Reason for Visit + + + | Reason | Comments | + + + | Erroneous Encounter | | | - Disregard | | + + + PROC - Inpatient Surgery (Routine) +--------+--------+ + + + + | Status | Reason | Specialty | Diagnoses / | Referred By | Referred To | | | | | Procedures | Contact | Contact | +--------+--------+ + + + + | Closed | | Orthopedics | Diagnoses | Paige, | Denise, | | | | | | Quang S, | Jorge Paige MD | | | | | Osteoarthros | [facility] | [address] | | | | | is, hip Hip | [facility] | [place] | | | | | pain, | & Fractur | [address], | | | | | bilateral | [address] | [place] | | | | | 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 | [place] | Phone: | | | | | ([facility]) | [place] [address] | [phone] | | | | | Procedures | Phone: | Fax: | | | | | REQUEST TO | [phone] | [phone] | | | | | SURGERY | Fax: | | | | | | 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 | [phone] | | | | | | CO TOTAL HIP | | | | | | | | | | | | | | ARTHROPLASTY | | | +--------+--------+ + + + + Encounter Details +--------+---------+ + + + | Date | Type | Department | Care Team | Description | +--------+---------+ + + + | 06/23/ | Office | Orthopaedics at | Jorge Walker MD | ERRONEOUS ENCOUNTER | | 2011 | Visit | [facility] [address] | [address] | - NO DIAGNOSIS | | | | [address] | [address] | (Primary Dx) | | | | Mailcode: [address] | [place], [place] | | | | | [facility] | [address] | | | | | [place], [place] | [phone] | | | | | [address] | | | | | | [phone] | | | +--------+---------+ + + + [...] encounter Progress Notes Jorge Walker MD - 06/27/2012 10:19 AM PST This encounter was opened in error. Please disregard this note. documented in this encounter Plan of Treatment Not on filedocumented as of this encounter Visit Diagnoses + + | Diagnosis | + + | ERRONEOUS ENCOUNTER - NO DIAGNOSIS - Primary | + + documented in this encounter"
--- OUTSIDE RECORDS SUMMARY | ~2019-08-03 | XMS | Encounter Summary ---
Demographics + + + | Address | [address] | | | [place] [address] | + + + | Home Phone [...] Team Providers + +------+ + | Care Dental Tech Name | Role | Phone | + +------+ + | Gracie Mariano MD | PCP | | + +------+ + Encounter Details +--------+ + + + + | Date | Type | Department | Care Team | Description | +--------+ + + + + | 11/16/ | Abstract | Orthopaedics at | Linnea Calvo PA | | | 2018 | | [facility] [address] | [address] | | | | | Ave Mailcode: [address] | [place], [place] | | | | | [facility] | [address] | | | | | and [place], | [phone] | | | | | [facility] | | | | | | Floor [facility] [place] | | | | | | [address] | | | | | | [phone] | | | +--------+ + + + [...]
--- OUTSIDE RECORDS SUMMARY | ~2019-08-03 | XMS | Encounter Summary ---
Demographics + + + | Address | [address] | | | [place] [address] | + + + | Home Phone [...] + + + | Author | [facility] | + + + | Organization | [facility] | + + + | [...] Providers + +------+ + | Care Commercial Real Estate Lender Name | Role | Phone | + +------+ + | Gracie Mariano MD | PCP | | + +------+ + Encounter Details +--------+ + + + + | Date | Type | Department | Care Team | Description | +--------+ + + + + | 04/03/ | Newspaper Writer | Digestive Health | Harinder Felton, | Other specified | | 2012 | | Center at [facility] [address] | MD [address] | disorder of | | | | [address] | [place] [address] | peritoneum (Primary | | | | Mailcode: Center | [phone] | Dx) | | | | for Health and | | | | | | Healing, Building [address] | | | | | | [place], [place] | | | | | | [address] | | | | | | [phone] | | | +--------+ + + + [...] PATHOLOGY | | | | right colon biopsy | | | | | | Materials | | | | | | Received:Referring | | | | | | Institution: [facility] | | | | | | [facility], | | | | | | [facility] [facility], | | | | | | [place] | | | | | | [id number] | | | | | | Accession Number: | | | | | | [id number] | | | | | | Collection Date: | | | | | | 10/22/2011H&E | | | | | | 1Specimen | | | | | | BOutside Accession | | | | | | Number: [id number] | | | | | | Collection Date: | | | | | | 01/07/2012H&E | | | | | | 1 | | | | | | Additional Materials | | | | | | Received: | | | | | | (12/01/2012)Referring | | | | | | Institution: [facility] | | | | | | [facility], | | | | | | [facility], | | | | | | [place] | | | | | | [id number] AOutside | | | | | | Accession Number: | | | | | | [id number] | | | | | | Collection Date: | | | | | | 10/22/2011lock | | | | | | 1Specimen BOutside | | | | | | Accession Number: | | | | | | [id number] | | | | | | Collection Date: | | | | | | 01/07/2012H&E 1 | | | | | | Final Pathologic | | | | | | Diagnosis:A: Ileocecal | | | | | | valve, biopsy ([facility] | | | | | | [facility], | | | | | | [id number],10/22/2011): | | | | | | - Colonic mucosa | | | | | | with surface | | | | | | hyperplastic changes | | | | | | B: Colon, proximal | | | | | | right, biopsy ([facility] | | | | | | [facility], | | | | | | [id number],01/07/2012):- | | | | | | Colonic mucosa with | | | | | | mildly increased lamina | | | | | | propria eosinophils | | | | | | (seecomment) | | | | | | Comment: We appreciate | | | | | | the opportunity to | | | | | | review this case | | | | | | including theoriginal | | | | | | slide for part B. In | | | | | | the proximal right colon | | | | | | biopsy, there is | | | | | | anincrease in lamina | | | | | | propria eosinophils, a | | | | | | relatively non-specific | | | | | | findingwhich can be | | | | | | attributed to bowel | | | | | | preparation artifact. | | | | | | While some nucleiin | | | | | | crypts are slightly | | | | | | enlarged, they are not | | | | | | hyperchromatic and in | | | | | | ouropinion these | | | | | | findings are not | | | | | | sufficient for the | | | | | | diagnosis of | | | | | | adenomatouschange. | | | | | | Slides for part B also | | | [...] | | | | | | Rendering Diagnostician: | | | | | | Shayy Patel | | | | | | VaishnaviPathologistElectroni | | | | | | donald Signed 12/05/2012 | | | | | | 6:01PM | | | | + + + + + + + + | Specimen | + + | Slide | + + + + + + + | Performing | Address | City/State/Zipcode | Phone Number | | Organization | | | | + + + + + | [facility] | [address] | [place] [address] | | | PATHOLOGY | [address] | | | + + + + + documented in this encounter Visit Diagnoses + + | Diagnosis | + + | Other specified disorder of peritoneum - Primary | + + documented in this encounter"
--- OUTSIDE RECORDS SUMMARY | ~2019-08-03 | XMS | Encounter Summary ---
Demographics + + + | Address | [address] | | | [place] [address] | + + + | Home Phone [...] Team Providers + +------+ + | Care Rod Hanger Name | Role | Phone | + [...] Visit | Medicine Clinic at | T, CHERY-Le,MPH | Diabetes mellitus | | | | [facility] | | screening; Other | | | | Stay [address] | | specified | | | | [address] | | pre-operative | | | | Mailcode: [id number] | | examination; | | | | [facility] | | Ankylosing | | | | [address] [place], [place] | | spondylitis ([facility]); | | | | [address] | | Localized | | | | [phone] | | osteoarthrosis not | | | [...] + + + + + | COMPLEX LEFT TOTAL | Aubrey Mckeon MD | 05/09/12 1146 | 05/09/12 1523 | | HIP ARTHROPLASTY | | | | | (Left Hip) | | | | + + [...] + | | 1 | Timeout | | | | 2 | | [...] RETIRE | 05/09/12; 937; 05/12/12; 1545; | 05/09/12937 by | 05/12/12 1545 by | | D - | No; 20; Right; Hand; No; Positive | RIKKI Mancia | Kamilla Easton, | | Periph | [...] easy reference, especially in the week before surgery. Important Guidelines Do not shave the surgical [...] or walk. Surgery Check in Locations Admitting [facility], ninth floor [facility] Surgery Check in Time: The OR (Operating Room) schedule is not finalized until the day before surgery. Someone from the OR (Operating Room) scheduling office at [facility] will call armen perez with information regarding check in time for your surgery. If you have questions about th is, please call [phone] Going Home Your surgical team will decide [...] it is after office hours, call the [facility] wind up operator at [phone] and ask them to page your doc tor documented in this encounter Progress Notes Aneesh Montemayor FNP-C,MPH - 04/29/2012 8:54 PM PDTFormatting of this note might be d ifferent from the original. PREOPERATIVE CONSULT NOTE Consulting Provider: ALFREDITO LARSEN,MPH Referring Physician: oJrge Walker MD Primary Care Provider: Gracie Mariano [...] surgery a couple of years ago at [facility] and it was canceled for "dental issues." [...] and PMHX. Document will be scanned in [employer]. Current Medication List Name Sig CHOLECALCIFEROL (VITAMIN [...] kg/(m^2) Body mass index is 44.46 kg/(m^2). [facility] ROS Last edited 05/03/122002 by ALFREDITO Mata,MPH [...] an echocardiogram ~7-8 years ago, possibly at [facility] in [facility], he reports it was found to be [...] surgery a couple of years ago at [facility] and it was canceled for "dental issues." Per patient he had the dental problems taken care of a couple of years ago and he denies dental problems or pain. Within Defined Limits except as noted below arthritis Heme/Onc: Per patient DVT was in the left lower leg in August 2009. Per his friend, John Hyatt, and additional records in [facility] it was the right leg that had a DVT. The patient reports that he developed the blood clot after a long ride from [place] back to [place] after his previous hip surgery was canceled. [...] I sent him an inbox message in [employer] with the results of the patient's INR [...] aVF. MEDICAL DECISION MAKIN ACC/ AHA Perioperative Guidelines 1. Need for emergency noncardiac surgery? b. No -> Proceed to next step. 2. Active Cardiac Conditions? These conditions mandate further investigation and manageme nt. A. Acute AK within 7 days: no B. Unstable angina/Recent AK (7- 30 days): no C. 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 Surgery Risk: Unavailable Patient-related risk: Estimated ASA [...] friend, John Hyatt, and additional records in [facility] it was the right leg that had a DVT. The patient reports that he developed the blood clot after a long ride from [place] back to [place] after his previou s hip surgery was canceled. Hx of antiphospholipid syndrome- currently on Warfarin, will bridge to Lovenox in preparati on for surgery per Dr. Moore, per patient, this prescription will be written by the rogers donato's PCP on file Dr. Gracie Mariano. Anticoagulation prophylaxis may be required perioperatively. Hx of 2 strokes 2 years ago. This patient is medically stable for surgery. Further testing/optimization is not needed. Thank you for the opportunity to contribute to this patient's care. ALFREDITO LARSEN,MPH [facility] [address] [place] [phone] Eoetoavspqppyq signed by ALFREDITO Mata,MPH at 05/03/2012 8:13 [...] + | Transcriptions | + + | Amanda Faculty - 04/29/2012 4:24 PM PDT | + [...] [facility] | [address] | [place], [place] | | | [facility] | [address] | [address] | | | TESTS | | | [...] view image for the detailed interpretation from [employer] results. | CARDIOLOGY | + + + + + + + + | Performing | Address | City/State/Zipcode | Phone Number | | Organization | | | | + + + + + | [facility] | [address] | [place], [place] | | | CARDIOLOGY | [address] | [address] | | + + + + + [...] ([address] [facility]) | [facility] | | [facility] [place] [address] | REGIONAL | | [place] [address] | LABORATORY | + + + + + + + + | Performing | Address | City/State/Zipcode | Phone Number | | Organization | | | | + + + + + | [facility] | [address] | [place] [address] | | | LABORATORY | | | [...] | + + + + + | [facility] DEPARTMENT | [address] | [place] [address] | | | PATHOLOGY | [address] [...] | | | | | | Culture: 1+ | | | | | | Normal Varsha | | | | | | | | | | | | | | | | | | Final ID Final Report | | | | + + + + + + + + | Specimen | + + | Oral mucosa - Nasal | + + + + + + + | Performing | Address | City/State/Zipcode | Phone Number | | Organization | | | | + + + + + | [facility] | [address] | [place] [address] | | | LAB-MICRO | | | [...] | [facility] | | | | APTT Therapeutic | seconds | DEPARTMENT | | | | Range | | OF | | | | | | PATHOLOGY | | | | (75-120) sec | | | | | | Heparin | | | | | | levels of 0.35-0.7 U/mL | | | | + + + + + + + + | Specimen | + + | Blood - Blood | + + + + + + + | Performing | Address | City/State/Zipcode | Phone Number | | Organization | | | | + + + + + | [facility] | [address] | [place] [address] | | | PATHOLOGY | [address] [...] | [facility] | | | | INR Therapeutic ranges | | DEPARTMENT | | | | for full | | OF | | | | anticoagulation: | | PATHOLOGY | | | | INR for Venous | | | | | | Thromboembolism | | | | | | (2.0-3.0) | | | | | | INR INR for most | | | | | | patients with mech. | | | | | | valves [...] | + + + + + | [facility] DEPARTMENT | [address] | [place] [address] | | | PATHOLOGY | [address] [...] | + + + + + | [facility] | [address] | [place] [address] | | | PATHOLOGY | [address] [...] | | | DEPARTMENT | | | DJIBOUTIAN | | | OF | | | [...] | | | | <15 mL/min/1.73 sq m | | | | | | Kidney Failure | | | | | [...] | + + + + + | [facility] | [address] | [place] [address] | | | PATHOLOGY | [address] [...]
--- OUTSIDE RECORDS SUMMARY | ~2019-08-03 | XMS | Encounter Summary ---
Demographics + + + | Address | [address] | | | [place] [address] | + + + | Home Phone [...] Author + + + | Author | [facility] | + + + | Organization | [facility] | + + + | [...] Providers + +------+ + | Care Medical Coding Manager Name | Role | Phone | + +------+ + | Gracie Mariano MD | PCP | | + +------+ + Encounter Details +--------+ + + + + | Date | Type | Department | Care Team | Description | +--------+ + + + + | 08/11/ | Hospital | Diagnostic | | Canceled | | 2011 | Encounter | Radiology at [facility] | | | | | | [address] | | | | | | Loop Mailcode: | | | | | | [address] Physician's | | | | | | [place], | | | | | | [place] [address] | | | | | | [phone] | | | +--------+ + + + [...] region and thigh | + + | Hip pain, left Pain in joint, pelvic region and thigh | + + documented in this encounter"
--- OUTSIDE RECORDS SUMMARY | ~2019-08-03 | XMS | Encounter Summary ---
Demographics + + + | Address | [address] | | | [place] [address] | + + + | Home Phone [...] Author + + + | Author | [facility] | + + + | Organization | [facility] | + + + | Address [...] Team Providers + +------+ + | Care Licensed Physical Therapy Assistant Name | Role | Phone | + [...] | Rheumatology | Diagnoses | Purnima | [facility] | | | | | Ankylosing | MD Harinder | [facility] [address] | | | | | spondylitis | [address] | [place] | | | | | ([facility]) | [address] | Loop | | | | | Procedures | [facility], | Mailcode: | | | | | CONSULT TO | [place] [address] | OP09 | | | | | RHEUMATOLOGY | Phone: | Physician's | | | | | | [phone] | [place], [facility] | | | | | | Fax: | Floor | | | | | | [phone] | [place], [place] | | | | | | | [address] | | | | | | | Phone: | | | | | | | [phone] | | | | | | | Fax: | | | | | | | [phone] | +--------+--------+ + + + + Encounter Details +--------+---------+ + + + | Date | Type | Department | Care Team | Description | +--------+---------+ + + + | 05/16/ | Office | Rheumatology at | Yulisa Hearn, | (ankylosing | | 2012 | Visit | Physicians [place] | [address] [facility] | spondylitis) ([facility]) | | | | [address] | [address] | (Primary Dx) | | | | Loop Mailcode: [address]35 | [place], [place] | | | | | Physician's | [address] | | | | | [place], | [phone] | | | | | [place] [address] | | | | | | [phone] | | | +--------+---------+ + + + [...] care. RAY ARREDONDO MD (ATUL) RHEUMATOLOGY FACULTY [facility] [place] [address] Yulisa Winchester MD - 05/16/2013 10:25 AM PDT RHEUMATOLOGY NEW PATIENT CONSULT This consultation was requested by: Harinder Felton MD [address] [place] [address] fax: [phone] CC: No chief complaint on file. HPI: This is a 62 y.o. male, here for consultation from Harinder Felton MD regarding diagnos is, and possible change in therapy for ankilosing spondylitis. Mr Cisneros is a 62 yo man who holds a long standing diagnosis of . He was di agnosed in late ' in [place] by his PCP, but was never referred [...] se refer to patient queationnaire scanned in [facility] PMH: Past Medical History Diagnosis Date Diabetes [...] THAN NECK, BACK, OR HIPS: 9.0 ( 3 1000) OVERALL LEVEL OF DISCOMFORT FROM AREAS TENDER TO TOUCH OR PRESURE: 9.0 (05/16/13 1000 ) OVERALL LEVEL OF MORNING STIFFNESS FROM TIME OF WAKING : 7.5 (05/16/13 1000) DURATION OF MORNING STIFFNESS: 10.0 (05/16/13 1000) BASDAI SCORE: 8.85 (05/16/13 1000) Exam: Vital Signs: BP 142/78 | Pulse 68 | Ht 1.689 m (5' 6.5") | Wt 113.853 kg (251 lb) | B NV 39.91 kg/(m^2) Pain Score: 6 Gen: Well [...] bilateral hip arthropathy and probable erosions EXAM: NM PELVIS 1 VIEW, 05/10/12 COMPARISON: 12/15/2010 HISTORY: [...] education. Patient seen and examined with Dr Arredondo who agrees with assessment and plan YULISA HEARN MD RHEUMATOLOGY FELLOWS [facility] Mailcode: Pv[address] [place] [address] documented in this en counter Plan of Treatment Not on filedocumented as of this encounter Procedures + +--------+ + + + | Procedure Name | Priori | Date/Time | Associated Diagnosis | Comments | | | ty | | | | + +--------+ + + + | NM TB INTRADERMAL | Routin | 05/16/2013 | (ankylosing | | | TEST | e | 11:12 AM | spondylitis) ([facility]) | | | | | PDT | [...] + | [facility] | [address] | [place] [address] | | | [place] | | | [...] + | [facility] | [address] | [place] [address] | | | [place] | | | [...] + | [facility] | [address] | [place] [address] | | | [place] | | | | + + + [...] | + + + + + | [facility] | [address] | [place] [address] | | | [place] | [address] [...] + | [facility] | [address] | [place] [address] | | | [place] | | | [...] | | | | | and anti-TNF COMPARISON: | | | | | | 03/10/13. FINDINGS: | | | | | | Heart size is normal. | | | | | | Thoracic aorta is | | | | | | tortuous as before. | | | | | | There is minimalleft | | | | | | basilar | | | | | | atelectasis/scarring. | | | | | | Osseous changes of | | | | | | ankylosing spondylitisas | | | | | | previously described. | | | | | | There is no new | | | | | | radiographic | | | | | | [...] | | + +---------+ + + | [facility] DEPARTMENT OF | | | | | RADIOLOGY | | | | + +---------+ + + documented in this encounter Visit Diagnoses + + | Diagnosis | + + | (ankylosing spondylitis) (HCC) - Primary Ankylosing spondylitis | + + documented in this encounter
--- OUTSIDE RECORDS SUMMARY | ~2019-08-03 | XMS | Encounter Summary ---
Demographics + + + | Address | [address] | | | [place] [address] | + + + | Home Phone | | + + + | Preferred Language | Unknown | + + + | Marital Status | Single | + + + | Yarsani Affiliation | 1041 | + + + | Race | Unknown | + + + | Ethnic Group | Unknown | + + + Author + + + | Author | [facility] | | | and [place] | + + + | Organization | [facility] | | | and [...] Team Providers + +------+ + | Care Lace Winder Name | Role | Phone | + +------+ + | Scooby Mcclure DO | PCP | | + +------+ + Reason for Visit +--------+ + | Reason | Comments | +--------+ + | Other | end of study | +--------+ + Encounter Details +--------+ + + + + | Date | Type | Department | Care Team | Description | +--------+ + + + + | 03/08/ | Documentati | [facility] | Taty Thacker, | Other (end of study) | | 2019 | on | CARDIOLOGY [place] | Technologist | | | | | [address] | | | | | | [place], [place] | | | | | | [address] | | | | | | [phone] | | | +--------+ + + + [...] documented as of this encounter Progress Notes Taty Thacker, Technologist - 03/08/2019 11:59 PM PDT Cardiac Supervisor Toy [employer] Date of Event Monitor: 03/08/19 Referring Physician: [place]: Jorge L Cisneros : 1950 Age: 68 y.o. male INDICATIONS: Syncope and Collapse Dictation on: 04/22/2019 0117 by: SISSY VILLALOBOS [[id number]] documented in thi s encounter Plan of Treatment +--------+---------+ + + + | Date | Type | Specialty | Care Team | Description | +--------+---------+ + + + | 09/14/ | Office | Neurology | Sarahi Jade, | | | 2019 | Visit | | MD Sushil [place] | | | | | | [address] | | | | | | [place] [address] | | | | | | [phone] | | | | | | | | +--------+---------+ + + + | 11/26/ | Office | Cardiology | Sissy Villalobos | | | 2019 | Visit | | MD Sushil [place]on | | | | | | [place] | | | | | | [phone] | | | | | | | | +--------+---------+ + + + documented as of this encounter Visit Diagnoses + + | Diagnosis | + + | Syncope and collapse | + + documented in this encounter"
--- OUTSIDE RECORDS SUMMARY | ~2019-08-03 | XMS | Encounter Summary ---
Demographics + + + | Address | [address] | | | [place] [address] | + + + | Home Phone [...] Author + + + | Author | [facility] | + + + | Organization | [facility] | + + + | Address [...] Team Providers + +------+ + | Care Honing Machine Operator Production Name | Role | Phone | + +------+ + | Gracie Mariano MD | PCP | | + +------+ + Reason for Visit +--------+ + | Reason | Comments | +--------+ + | Other | gall stone pancreatitis | +--------+ + Encounter Details +--------+ + + + + | Date | Type | Department | Care Team | Description | +--------+ + + + + | 03/08/ | Emergency | [facility] Emergency | | | | 2012 | | Department [address] | | | | | | [address] | | | | | | [facility] | | | | | | [place], [place] | | | | | | [address] | | | | | | [phone] | | | +--------+ + + + [...]
--- OUTSIDE RECORDS SUMMARY | ~2019-08-03 | XMS | Encounter Summary ---
Demographics + + + | Address | [address] | | | [place] [address] | + + + | Home Phone | | + + + | Preferred Language | Unknown | + + + | Marital Status | Single | + + + | Restorationism Affiliation | 1041 | + + + | Race | Unknown | + + + | Ethnic Group | Unknown | + + + Author + + + | Author | [facility] | | | and [place] | + + + | Organization | [facility] | | | and [...] Team Providers + +------+ + | Care Tire Service Technician Name | Role | Phone | + +------+ + | Scooby Mcclure DO | PCP | | + +------+ + Encounter Details +--------+ + + + + | Date | Type | Department | Care Team | Description | +--------+ + + + + | 01/07/ | Orders Only | [facility] | Conversion | | | 2017 | | CONVERSION DEP [address] | Transaction, | | | | | [address] | Provider Unknown | | | | | [place] | [phone] | | | | | [address] | (Fax) | | | | | [phone] | | | +--------+ + + + [...] | | | | | [place] [address] | | | | | | [phone] | | | | | | | | +--------+---------+ + + + | 11/26/ | Office | Cardiology | Sissy Noyola | | | 2020 | Visit | | MD Sushil Damon | | | | | | [place] | | | | | | [address] | | | | | | | | +--------+---------+ + + + documented as of this encounter Visit Diagnoses Not on filedocumented in this encounter"
--- OUTSIDE RECORDS SUMMARY | ~2019-08-03 | XMS | Encounter Summary ---
Demographics + + + | Address | [address] | | | [place] [address] | + + + | Home Phone [...] + + + | Author | [facility] | + + + | Organization | [facility] | + + + | [...] Team Providers + +------+ + | Care Research Chemical Engineer Name | Role | Phone | [...] | (Primary Dx) | | | | [place] | [address], | | | | | Eliel/[id number] [facility] | [place] [address] | | | | | [facility], | [phone] | | | | | [place] [address] | | | | | | [phone] | | | +--------+---------+ + + + [...] follow up with orthopedic surgery. JH ' Birttney Darling RN - 03/13/2014 6:36 PM PDT [...]
--- OUTSIDE RECORDS SUMMARY | ~2019-08-03 | XMS | Encounter Summary ---
Demographics + + + | Address | [address] | | | [place] [address] | + + + | Home Phone | | + + + | Preferred Language | Unknown | + + + | Marital Status | Single | + + + | Roman Catholic Affiliation | 1041 | + + + | Race | Unknown | + + + | Ethnic Group | Unknown | + + + Author + + + | Author | [facility] | | | and [place] | + + + | Organization | [facility] | | | and [place] | [...] Team Providers + +------+ + | Care Electronic Calibration Technician Name | Role | Phone | + +------+ + PCP | Unavailable | + +------+ + Encounter Details +--------+ + + + + | Date | Type | Department | Care Team | Description | +--------+ + + + + | 02/15/ | Hospital | [facility] | Conversion | Neck pain | | 2017 | Encounter | CONVERSION DEP 888 | Transaction, | | | | | RAYMOND SCHMITT | Provider Unknown | | | | | [place] | | | | | | [phone] | (Fax) | | | | | [phone] | | | +--------+ + + + [...] | 0 | 05/18/20 | | | mg tablet | every [...] mg by mouth | | 0 | /18/20 | | | 20 mg/mL | every [...] 1 tablet by | | 0 | 05/18/20 | | | Vitamins-Minerals | mouth daily. [...] | | | | | [place] [address] | | | | | | [phone] | | | | | | | | +--------+---------+ + + + | 11/26/ | Office | Cardiology | Sissy Noyola | | | 2019 | Visit | | MD Marisol [address] | | | | | | [place] | | | | | | [address] | | | | | | | | +--------+---------+ + + + documented as of this encounter Procedures + +--------+ + + + | Procedure Name | Priori | Date/Time | Associated Diagnosis | Comments | | | ty | | | | + +--------+ + + + | CT CERVICAL SPINE WO | Routin | 02/15/2018 | | Results for this | | CONTRAST | e | 12:19 PM | | procedure are in the | | | | PDT | | results section. | + +--------+ + + + documented in this encounter Results CT Cervical Spine wo Contrast (02/15/2018 12:19 PM PDT) + + | Specimen | + + | | + + + + + | Narrative | Performed At | + + + | This is a non-reportable procedure without a radiologist report and | | | is used for image storage only | | + + + + + | Procedure Note | + + | Vamsi Guillaume Conversion - 04/05/2019 4:06 AM PDT This is a non-reportable procedure | | without a radiologist report and isused for image storage only | + + documented in this encounter Visit Diagnoses + + | Diagnosis | + + | Neck pain Cervicalgia | + + documented in this encounter"
--- OUTSIDE RECORDS SUMMARY | ~2019-08-03 | XMS | Encounter Summary ---
Demographics + + + | Address | [address] | | | [place] [address] | + + + | Home Phone | | + + + | Preferred Language | Unknown | + + + | Marital Status | Single | + + + | Rastafarian Affiliation | 1041 | + + + | Race | Unknown | + + + | Ethnic Group | Unknown | + + + Author + + + | Author | [facility] | | | and [place] | + + + | Organization | [facility] | | | and [...] Team Providers + +------+ + | Care Biofuels Plant Superintendent Name | Role | Phone | [...] [place] | | | | | | [address] | (Fax) | | | | | [...] | | | | | [place] [address] | | | | | | [phone] | | | | | | | | +--------+---------+ + + + | 11/26/ | Office | Cardiology | Sissy Noyola | | | 2020 | Visit | | MD Marisol [address] | | | | | | [place] | | | | | | [address] | | | | | | | [...]
--- OUTSIDE RECORDS SUMMARY | ~2019-08-03 | XMS | Encounter Summary ---
Demographics + + + | Address | [address] | | | [place] [address] | + + + | Home Phone | | + + + | Preferred Language | Unknown | + + + | Marital Status | Single | + + + | Congregational Affiliation | BAP | + + + | Race | or | + + + | Ethnic Group | Not or | + + + Author + + + | Author | [facility] | + + + | Organization | [facility] | + + + | [...] Providers + +------+ + | Care Dental Prosthetist Name | Role | Phone | + +------+ + | Gracie Mariano MD | PCP | | + +------+ + Reason for Visit +---------+ + | Reason | Comments | +---------+ + | Post Op | | +---------+ + Global Period - Transplant (Routine) +--------+--------+ + + + + | Status | Reason | Specialty | Diagnoses / | Referred By | Referred To | | | | | Procedures | Contact | Contact | +--------+--------+ + + + + | Closed | | Trauma Center | Diagnoses | Emergency | Tra Emerg | | | | | | Dept Hrc | Gen Surg Ppv | | | | | Osteoarthros | [address] | [address] | | | | | [facility] hip [facility] | [address] | | | | | Ankylosing | Rd [facility] | Mailcode: | | | | | Spondylitis | [facility] | [address] | | | | | | [place], [place] | Phsyicians | | | | | Cholecystiti | [address] | [address] | | | | | s [address] | Phone: | [place], [place] | | | | | hernia | [phone] | [address] | | | | | Procedures | | Phone: | | | | | lap choly | | [phone] | | | | | | | Fax: | | | | | | | [phone] | +--------+--------+ + + + + Encounter Details +--------+---------+ + + + | Date | Type | Department | Care Team | Description | +--------+---------+ + + + | 04/03/ | Office | Trauma Emergency | Suraj Monzon, | Cholecystitis | | 2013 | Visit | General Surgery at | MD [address] | (Primary Dx); | | | | [address] | Diabetes mellitus | | | | [address] | [place], [place] | (HCC); Ventral | | | | Mailcode: L[address]A | [address] | hernia | | | | [facility] | [phone] | | | | | [address] [place], [place] | | | | | | [address] | | | | | | [phone] | | | +--------+---------+ + + + [...] + + + | Blood Pressure | 126/70 | 04/03/2013 1:42 PM | | | | | PDT | | + + + + + | Pulse | 62 | 04/03/2013 1:42 PM | | | | | PDT | | + + + + + | Temperature | 36.4 C (97.6 F) | 04/03/2013 1:42 PM | | | | | PDT | | + + + + + | Respiratory Rate | - | - | | + + + + + | Oxygen Saturation | 97% | 04/03/2013 1:42 PM | | | | | PDT | | + + + + + | Inhaled Oxygen | - | - | | | Concentration | | | | + + + + + | Weight | 114.2 kg (251 lb | 04/03/2013 1:42 PM | | | | 11.2 oz) | PDT | | + + + + + | Height | 167.6 cm (5' 6") | 04/03/2013 1:42 PM | | | | | PDT | | + + + + + | Body Mass Index | 40.63 | 04/03/2013 1:42 PM | | | | | PDT | | + + + + + documented in this encounter Progress Notes Suraj Monzon MD - 04/03/2013 3:15 PM ENZOI saw and evaluated the patient. I agree wi th the findings and the plan of care as documented in the resident s note. Wound is heali ng. Of note is a previously noted midline incisional hernia from his divertulitis surgery. I spent 10 minutes with this pt., 90% in counseling him. MD SURAJ [facility] MD [facility] GENERAL SURGERY [address] [place] [address] Mailcode: [address] [place] [address] asimiro Nuñez MBBS - 04/03/2013 2:18 PM PDTFormatting of this note might be different from the origi nal. The Department of Surgery [facility], Post-op Visit: Author: Angel Nuñez MD R2 Attending Physician: Dr. Elisha Monzon 04/03/2013, 2:18 PM ID: Jorge L Cisneros is a 62 y.o. male, who is s/p lap converted to open cholecystectomy on 02/21 10/05 for acute cholecystitis. SUBJECTIVE: He states that he has been feeling well. No abdominal pain. No nausea or emesis. Tolerating diet without issue. No issues with BMs. Denies fevers or chills. No discharge from wounds. Review of Systems: As above; 10-point review of systems otherwise negative Meds: Current outpatient prescriptions:acetaminophen 650 mg Oral tablet, Take 1 Tab by mouth ever y six hours., Disp: , Rfl: allopurinol 100 mg Oral tablet, Take 100 mg by mouth once daily., Disp: , Rfl: Cholecalciferol, Vitamin D3, 5,000 unit Oral capsule, Take 5,000 Units by mouth once daily. , Disp: , Rfl: clotrimazole 1 % Topical Cream, Apply to affected area two times daily. Apply to affected area for 7 consecutive days. , Disp: , Rfl: glipiZIDE 5 mg Oral tablet, Take 5 mg by mouth two times daily., Disp: , Rfl: levothyroxine 50 mcg Oral tablet, Take 50 mcg by mouth once daily. , Disp: , Rfl: lisinopril 10 mg Oral tablet, Take 10 mg by mouth once daily. , Disp: , Rfl: MEDICAL MARIJUANA, once daily. 3 grams per day, Disp: , Rfl: metoprolol tartrate 25 mg Oral tablet, Take 25 mg by mouth two times daily. , Disp: , Rfl: morphine 15 mg Oral tablet, Take 1-2 Tabs by mouth every three hours as needed for severe p ain., Disp: 45 Tab, Rfl: 0 morphine 15 mg Oral tablet, Take 1 Tab by mouth every four hours as needed for severe pain. , Disp: 200 Tab, Rfl: 0 morphine ER 60 mg Oral tablet extended release, Take 1 Tab by mouth every twelve hours., Di sp: 90 Tab, Rfl: 0 multivitamin Oral capsule, Take 1 Cap by mouth once daily., Disp: , Rfl: polyethylene glycol 17 gram/dose Oral Powder, Take 17 g by mouth once daily., Disp: 119 g, Rfl: senna-docusate 8.6-50 mg Oral tablet, Take 1 Tab by mouth two times daily., Disp: , Rfl: warfarin 5 mg Oral tablet, Take 5 mg by mouth once daily., Disp: , Rfl: OBJECTIVE: Vitals: Ht 167.6 cm (5' 6")( < 3 %ile), Wt 114.17 kg (251 lbs 11.2 oz)( < 3 %ile), BP 126/70, Pulse 62, Temperature 36.4 C (97.6 F), Temperature source Oral, SpO2 97%, BMI 40.64 kg/(m^2). Physical Exam: General: Alert and oriented, NAD, Respiratory: unlabored Abdomen: Moderately obese. Large midline scar. RUQ incision and midline port site is healin g well without erythema or discharge. Flaquita in place. These were removed and steri strips applied. Epigastric hernia is present. Non tender and easily reducible. Pathology/Scans: Final Pathologic Diagnosis: Gallbladder and contents, cholecystectomy: - Chronic cholecystitis - Cholelithiasis ASSESSMENT: This is Jorge L Cisneros, a 62 y.o. M, who is s/p lap converted to open cholecystectomy on 03/13. His recovery has been uneventful. PLAN: 1. [place] removed from incisions. Mastisol and steri strips appiled. 2. In regards to desire for hip replacement surgery, advised to wait another month until abdominal precautions are no longer required. 2. Return to clinic: PRN Dr. Monzon has seen and examined the patient and agrees with the above plan. Signed: Angel Nuñez MD General Surgery, R1 [facility] Department of Surgery Page: [id number] documented i n this encounter Plan of Treatment Not on filedocumented as of this encounter Visit Diagnoses + + | Diagnosis | + + | Cholecystitis - Primary Cholecystitis, unspecified | + + | Diabetes mellitus (HCC) Type II or unspecified type diabetes mellitus without mention | | of complication, not stated as uncontrolled | + + | Ventral hernia Ventral hernia, unspecified, without mention of obstruction or | | gangrene | + + documented in this encounter
--- OUTSIDE RECORDS SUMMARY | ~2019-08-03 | XMS | Encounter Summary ---
Demographics + + + | Address | [address] | | | [place] [address] | + + + | Home Phone [...] Author + + + | Author | [facility] | + + + | Organization | [facility] | + + + | Address [...] Team Providers + +------+ + | Care Digital Advertising Analyst Name | Role | Phone | [...] | | 2013 | | Center at [facility] [address] | MD | Review ([facility] | | | | MARYLOU Myrick | | OUTSIDE RECORDS) | | | | Mailcode: [place] | | | | | | for [facility] and | | | | | | [facility], [facility] [address] | | | | | | [place], [place] | | | | | | [address] | | | | | | [phone] | | | +--------+ + + + [...]
--- OUTSIDE RECORDS SUMMARY | ~2019-08-03 | XMS | Encounter Summary ---
Demographics + + + | Address | [address] | | | [place] [address] | + + + | Home Phone | | + + + | Preferred Language | Unknown | + + + | Marital Status | Single | + + + | Anabaptist Affiliation | 1041 | + + + | Race | Unknown | + + + | Ethnic Group | Unknown | + + + Author + + + | Author | [facility] | | | and [place] | + + + | Organization | [facility] | | | and [place] [...] Team Providers + +------+ + | Care Medication Manager Name | Role | Phone | + +------+ + | Scooby Mcclure DO | PCP | | + +------+ + Reason for Visit + + + | Reason | Comments | + + + | Medication Refill | | + + + Encounter Details +--------+--------+ + + + | Date | Type | Department | Care Team | Description | +--------+--------+ + + + | 05/18/ | Refill | [facility] | Sissy Noyola | Medication Refill | | 2018 | | [place] | MD [address]isol [address] | | | | | [address] | [address] [facility] | | | | | [place], [place] | [address] | | | | | [address] | | | | | | [phone] | | | +--------+--------+ + + + Social History + +-------+ [...] | | | | | | [address] | | | | | | [place] [address] | | | | | | [phone] | | | | | | | | +--------+---------+ + + + | 11/26/ | Office | Cardiology | Sissy Noyola | | | 2019 | Visit | | MD [address] | | | | | | [place] | | | | | | [address] | | | | | | | | +--------+---------+ + + + documented as of this encounter Visit Diagnoses Not on filedocumented in this encounter"
--- OUTSIDE RECORDS SUMMARY | ~2019-08-03 | XMS | Encounter Summary ---
Demographics + + + | Address | [address] | | | [place] [address] | + + + | Home Phone [...] + + + | Author | [facility] | + + + | Organization | [facility] | + + + | Address | [...] Team Providers + +------+ + | Care Manager Of Finance Name | Role | Phone | + +------+ + | Scooby Mcclure MD | PCP | | + +------+ + Encounter Details +--------+ + + + + | Date | Type | Department | Care Team | Description | +--------+ + + + + | 02/24/ | Document-Sc | Health Information | Unknown . | | | 2018 | anned | Services [address] | | | | | | [address] | | | | | | Mailcode: OP17A | | | | | | [facility] | | | | | | [place], [place] | | | | | | [address] | | | | | | [phone] | | | +--------+ + + + [...]
--- OUTSIDE RECORDS SUMMARY | ~2019-08-03 | XMS | Encounter Summary ---
Demographics + + + | Address | [address] | | | [place] [address] | + + + | Home Phone | | + + + | Preferred Language | Unknown | + + + | Marital Status | Single | + + + | Bahai Affiliation | BAP | + + + | Race | or | + + + | Ethnic Group | Not or | + + + Author + + + | Author | [facility] | + + + | Organization | [facility] | + + + | Address [...] Team Providers + +------+ + | Care Oxygen System Tester Name | Role | Phone | + +------+ + | Ino Ace MD | PCP | Unavailable | + +------+ + Encounter Details +--------+ + + + + | Date | Type | Department | Care Team | Description | +--------+ + + + + | 05/23/ | Pharmacist Critical Care | Orthopaedics at | Jorge [place] MD | Hip Pain (Primary | | 2009 | | [facility] [address] | [address] | Dx) | | | | [address] | [address] | | | | | Mailcode: PV430 | [place], [place] | | | | | [facility] | [address] | | | | | [place], [place] | [phone] | | | | | [address] | | | | | | [phone] | | | +--------+ + + + [...] THOMASReviewer: ROGERIO Patiño | | | | Vaishnavi THOMASSTATUS FINAL [...] | | + +---------+ + + | [facility] DEPARTMENT OF | | | | | RADIOLOGY | | | | + +---------+ + + documented in this encounter Visit Diagnoses + + | Diagnosis | + + | Hip pain - Primary Pain in joint, pelvic region and thigh | + + documented in this encounter"
--- OUTSIDE RECORDS SUMMARY | ~2019-08-03 | XMS | Encounter Summary ---
Demographics + + + | Address | [address] | | | [place] [address] | + + + | Home Phone [...] + + + | Author | [facility] | + + + | Organization | [facility] | + + + | Address | Unknown | + + + | Phone | Unavailable | + + + Support + + +---------+ + | Name | Relationship | Address | Phone | + + +---------+ + | Nallely Cisneros | ECON | Unknown | | + + +---------+ + | Jean Funk | AUDREY | Unknown | Unavailable | + + +---------+ + Care Team Providers + +------+ + | Care Operation Agent Name | Role | Phone | + +------+ + | Scooby Mcclure MD | PCP | | + +------+ + Encounter Details +--------+ + + + + | Date | Type | Department | Care Team | Description | +--------+ + + + + | 11/27/ | Document-Sc | UNKNOWN DEPARTMENT | Other, Faculty | | | 2014 | anned | [address] [facility] | [phone] | | | | | [address] | | | | | | [place], [place] | | | | | | [address] | | | +--------+ + + + [...]
--- OUTSIDE RECORDS SUMMARY | ~2019-08-03 | XMS | Encounter Summary ---
Demographics + + + | Address | [address] | | | [place] [address] | + + + | Home Phone [...] Team Providers + +------+ + | Care River Expedition Guide Name | Role | Phone | + [...] Closed | | Orthopedics | Diagnoses | Royal | [place], | | | | | | Quang S, | Jorge W, MD | | | | | Osteoarthros | MD [facility] | [address] | | | | | is, | [facility] | [address] | | | | | unspecified | & Fractur | [address] [place], | | | | | whether | [address] | [place] | | | | | generalized | [address] | [address] | | | | | or | [place], | Phone: | | | | | localized, | [place] [address] | [phone] | | | | | pelvic | Phone: | Fax: | | | | | region and | [phone] | [phone] | | | | | thigh | Fax: | | | | | | Procedures | [phone] | | | | | | REQUEST TO | | | | | | | SURGERY | | | | | | | TEST DESK TROUBLE LOCATOR | | | | | | | CA TOTAL HIP | | | | | | | | | | | | | | ARTHROPLASTY | | | | | | | CA | | | | | | | [...] | Denise, | | | | | MEGHAN in hips | Quang Christensen, | Jorge Paige MD | | | | | | MD Lamb | [address] | | | | | | [facility] | [address] | | | | | | & Tereza | [place], | | | | | | [address] | [place] | | | | | | [place] | [address] | | | | | | [place], | Phone: | | | | | | [place] [address] | [phone] | | | | | | Phone: | Fax: | | | | | | [phone] | [phone] | | | | | | Fax: | | | | | | | [phone] | | +--------+--------+ + + + + Encounter Details +--------+---------+ + + + | Date | Type | Department | Care Team | Description | +--------+---------+ + + + | 08/11/ | Office | Orthopaedics at | Jorge Walker MD | S/P hip replacement | | 2011 | Visit | [facility] [address] | (Primary Dx); | | | | [address] | [address] | Osteoarthrosis, hip; | | | | Mailcode: PV430 | [place], [place] | 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 [facility]. Intake [...] 12:23 PM PDT | + + ORDERS OTHER (08/11/2012 12:00 AM PST) + + + [...]
--- OUTSIDE RECORDS SUMMARY | ~2019-08-03 | XMS | Encounter Summary ---
Demographics + + + | Address | [address] | | | [place] [address] | + + + | Home Phone | | + + + | Preferred Language | Unknown | + + + | Marital Status | Single | + + + | Episcopal Affiliation | 1041 | + + + | Race | Unknown | + + + | Ethnic Group | Unknown | + + + Author + + + | Author | [facility] | | | and [place] | + + + | Organization | [facility] | | | and [place] | [...] + +------+ + | Care Technical Services Coordinator Name | Role | Phone | + +------+ + PCP | Unavailable | + +------+ + Encounter Details +--------+ + + + + | Date | Type | Department | Care Team | Description | +--------+ + + + + | 06/11/ | Hospital | [facility] | | | | 1994 - | Encounter | MED CTR OP RE[facility]AB | | | | | | [address] | | | | 07/19/ | | [place] [address] | | | | 1994 | | [phone] | | | +--------+ + + + [...] | | | | | | [address] | | | | | | [place] [address] | | | | | | [phone] | | | | | | | | +--------+---------+ + + + | 11/26/ | Office | Cardiology | Sissy Noyola | | | 2020 | Visit | | MD Marisol [address] | | | | | | [place] | | | | | | [address] | | | | | | | | +--------+---------+ + + + documented as of this encounter Visit Diagnoses Not on filedocumented in this encounter"
--- OUTSIDE RECORDS SUMMARY | ~2019-08-03 | XMS | Clinical Summary ---
Demographics + + + | Address | [address] | | | [place] [address] | + + + | Home Phone | | + + + | Preferred Language | Unknown | + + + | Marital Status | Single | + + + | Buddhist Affiliation | BAP | + + + | Race | or | + + + | Ethnic Group | Not or | + + + Author + + + | Author | [facility] | + + + | Organization | [facility] | + + [...] Team Providers + +------+ + | Care Rn Mds Coordinator Name | Role | Phone | + +------+ + | Scooby Mcclure MD | PCP | | + +------+ + Source Comments [facility] is fully live on both [facility] Ambulatory and [facility] InPatient.[facility] Allergies + + + + + + [...] | + + + + + + Medications + + + +---------+------+------+-------+ | Medication | Sig | Dispensed | Refills | Star | End | Statu | | | | | | t | Date | s | | | | | | Date | | | + + + +---------+------+------+-------+ | MEDICAL MARIJUANA | once daily. 3 grams | | 0 | | | Activ | | | per day | | | | | e | + + + +---------+------+------+-------+ | levothyroxine 50 | Take 50 mcg by mouth | | 0 | | | Activ | | mcg Oral tablet | before breakfast. | | | | | e | + + + +---------+------+------+-------+ | insulin glargine | Inject 66 Units | | 0 | | | Activ | | 100 unit/mL | under the skin | | | | | e | | subcutaneous | (SUBC) once daily at | | | | | | | solution | bedtime. | | | | | | + + + +---------+------+------+-------+ | morphine ER 60 mg | Take 60 mg by mouth | | 0 | | | Activ | | oral tablet extended | every twelve hours. | | | | | e | | release | | | | | | | + + + +---------+------+------+-------+ | morphine 15 mg | Take 15 mg by mouth | | 0 | | | Activ | | oral tablet | four times daily as | | | | | e | | | needed. | | | | | | + + + +---------+------+------+-------+ | ranitidine 150 mg | Take 150 mg by mouth | | 0 | | | Activ | | oral tablet | two times daily. | | | | | e | + + + +---------+------+------+-------+ | | Take 1 tablet by | | 0 | | | Activ | | multivitamin-mineral | mouth once daily. | | | | | e | | s oral tablet | | | | | | | + + + +---------+------+------+-------+ | | Take 25 mg by mouth | | 0 | | | Activ | | hydroCHLOROthiazide | once daily. | | | | | e | | 25 mg oral tablet | | | | | | | + + + +---------+------+------+-------+ | lisinopril 20 mg | Take 20 mg by mouth | | 0 | | | Activ | | oral tablet | once daily. | | | | | e | + + + +---------+------+------+-------+ | folic acid 1 mg | Take 0.5 mg by mouth | | 0 | | | Activ | | oral tablet | once daily. | | | | | e | + + + +---------+------+------+-------+ | docusate sodium | Take 100 mg by mouth | | 0 | | | Activ | | 100 mg oral capsule | once daily as | | | | | e | | | needed. | | | | | | + + + +---------+------+------+-------+ | cholecalciferol | Take 2,000 Units by | | 0 | | | Activ | | (Vitamin D3) 1,000 | mouth once daily. | | | | | e | | unit oral tablet | | | | | | | + + + +---------+------+------+-------+ | loratadine 10 mg | Take 10 mg by mouth | | 0 | | | Activ | | oral tablet | once daily as | | | | | e | | | needed. | | | | | | + + + +---------+------+------+-------+ | insulin aspart | Inject under the | | 0 | | | Activ | | U-100 [...] | | | | + + + +---------+------+------+-------+ | acetaminophen 500 | Take 2 tablets by | 30 | 0 | 07/0 | | Activ | | mg oral tablet | mouth every eight | tablet | | 3/20 | | e | | | hours. | | | 18 | | | + + + +---------+------+------+-------+ | cholecalciferol | Take 1 tablet by | 30 | 0 | 07/0 | | Activ | | (Vitamin D3) 2,000 | mouth once daily. | tablet | | 4/20 | | e | | unit oral tablet | | | | 18 | | | + + + +---------+------+------+-------+ | gabapentin 100 mg | Take 2 capsules by | | 0 | 07/0 | | Activ | | oral capsule | mouth once daily at | | | 3/20 | | e | | | bedtime. | | | 18 | | | + + + +---------+------+------+-------+ | HYDROmorphone | Take 1-2 tablets by | 30 | 0 | 07/0 | | Activ | | (DILAUDID) 2 mg oral | mouth every three | tablet | | 3/20 | | e | | tablet | hours as needed for | | | 18 | | | | | severe pain. | | | | | | + + + +---------+------+------+-------+ | rivaroxaban 20 mg | Take 1 tablet by | 30 | 0 | 07/2 | | Activ | | oral tablet | mouth once daily | tablet | | 6/20 | | e | | | with breakfast. | | | 18 | | | + + + +---------+------+------+-------+ Active Problems + + + | Problem | Noted Date | + + + | Closed fracture of second cervical vertebra | 02/15/2018 | + + + | Closed displaced fracture of second cervical vertebra, | 02/15/2018 | | unspecified fracture morphology, initial encounter | | + + + | Right shoulder pain | 11/08/2014 | + + + | Heterotopic ossification of bone | 03/14/2014 | + + + | Heterotopic ossification | 03/14/2014 | + + + | Hypertension | 03/16/2013 | + + + | Diabetes mellitus | 03/16/2013 | + + + | [...] + + + + | Ankylosing spondylitis | 05/23/2009 | + + + | Antiphospholipid antibody syndrome | | + + + | Difficult intubation | | + + + + + | Overview: glidescope used for intubation | + + Immunizations + + + + | Name | Administration Dates | Next Due | + + + [...] recent travel history available. | + + Last Filed Vital Signs + [...] | | + + + + + Plan of Treatment + + + + + | Health Maintenance | Due Date | Last Done | Comments | + + + + + | Pneumococcal | | 01/12/2018 | | | vaccination (2 of 2 | 6 | | | | - PPSV23) | | | | + + + + + | Influenza (Flu) | | | | | vaccination (#1) | 9 | | | + + + + + Implants + +------+--------+ +--------+--------+--------+ | Implanted | Type | Area | Manufacture | Device | Shelf | Model | | | | | r | | Expira | / | | | | | | Identi | tion | Serial | | | | | | fier | Date | / Lot | + +------+--------+ +--------+--------+--------+ | Continuum Acetabular System | | Left: | AYDE | | 04/22/ | 5 | | Dome Hole Plug - | | Hip | | | 2021 | - | | [id number]: Qty: 1 on | | | | | | / | | 05/09/2012 by Jorge Walker, | | | | | | /[id number] | | MD at [facility] INPATIENT REV LOC | | | | | | 905 | + +------+--------+ +--------+--------+--------+ | Trabecular Metal Shell | | Left: | AYDE | | 03/21/ | 5 | | 58mImplanted: Qty: 1 on | | Hip | | | 2021 | 7-058- | | 05/09/2012 by Jorge Walker, | | | | | | 01 / | | MD at [facility] INPATIENT REV LOC | | | | | | /[id number] | | | | | | | | 366 | + +------+--------+ +--------+--------+--------+ | Polyethelene Neutral | | Left: | AYDE | | 01/19/ | 00-875 | | LinerImplanted: Qty: 1 on | | Hip | | | 2016 | - | | 05/09/2012 by Jorge Walker, | | | | | | 36 / | | MD at [facility] INPATIENT REV LOC | | | | | | /[id number] | | | | | | | | 117 | + +------+--------+ +--------+--------+--------+ | Trabecular Metal Femoral Stem | | Left: | AYDE | | 02/19/ | 00-786 | | 13mmImplanted: Qty: 1 on | | Hip | | | 2021 | 4013- | | 05/09/2012 by Jorge Walker, | | | | | | 20 / | | MD at [facility] INPATIENT REV LOC | | | | | | /[id number] | | | | | | | | 333 | + +------+--------+ +--------+--------+--------+ | Femoral Head Ceramic | | Left: | AYDE | | 01/30/ | 00-877 | | 36mm/-3.5Implanted: Qty: 1 on | | Hip | | | 2021 | 5-036- | | 05/09/2012 by Jorge Walker | | | | | | 01 / | | MD Royal at [facility] INPATIENT REV | | | | | | /[id number] | | LOC | | | | | | 43 | + +------+--------+ +--------+--------+--------+ | Ayde Total Hip Cap | | | | | | | | ChargeImplanted: Qty: 1 on | | | | | | | | 05/09/2012 at [facility] INPATIENT | | | | | | | | REV LOC | | | | | | | + +------+--------+ +--------+--------+--------+ | Stem Tm Primary 13mm Extended | | Right: | AYDE | | 11/20/ | 00-786 | | - [id number]: Qty: 1 | | Hip | | | 2022 | 4-013- | | on 03/12/2014 by Denise, | | | | | | 20 / | | Jorge Paige MD at [facility] | | | | | | /[id number] | | INPATIENT REV LOC | | | | | | 757 | + +------+--------+ +--------+--------+--------+ | Femoral Head Biolox Delta | | Right: | AYDE | | 06/22/ | 00-7 | | 36mm -3.5mm - | | Hip | | | 2022 | 5-036- | | [id number]: Qty: 1 on | | | | | | / | | 03/12/2014 by Jorge Walker | | | | | | /[id number] | | MD Royal at [facility] INPATIENT REV | | | | | | 12 | | LOC | | | | | | | + +------+--------+ +--------+--------+--------+ | Tm Por St/Tm Cup/ Xlpe Ln/Cer | | | | | | | | HdImplanted: Qty: 1 on | | | | | | /98-00 | | 03/12/2014 at [facility] INPATIENT | | | | | | 01-426 | | REV LOC | | | | | | -03 / | + +------+--------+ +--------+--------+--------+ | Continuum Acetabular System | | Right: | AYDE | | 02/19/ | 00-875 | | Dome Hole Plug - | | Hip | | | 2023 | 7-000- | | [id number]: Qty: 1 on | | | | | | 01 / | | 03/12/2014 by Jorge Walker | | | | | | /[id number] | | MD Royal at [facility] INPATIENT REV | | | | | | 971 | | LOC | | | | | | | + +------+--------+ +--------+--------+--------+ | Continuum Acetabular System | | Right: | AYDE | | / | 00-875 | | Trabecular Metal Shell With | | Hip | | | 2023 | 78- | | Cluster Holes 58mm Ll - | | | | | | 01 / | | [id number]: Qty: 1 on | | | | | | /[id number] | | 03/12/2014 by Jorge Walker | | | | | | 427 | | MD Royal at [facility]IENT REV | | | | | | | | LOC | | | | | | | + +------+--------+ +--------+--------+--------+ | Continuum Longevity Neutral | | Right: | AYDE | | 09/22/ | 8751-1 | | Felton Blackburn 36 X 58 - | | Hip | | | 2018 | 336 / | | [id number]: Qty: 1 on | | | | | | | | 03/12/2014 by Jorge Walker | | | | | | /[id number] | | MD Royal at [facility] REV | | | | | | 246 | | LOC | | | | | | | + +------+--------+ +--------+--------+--------+ | 50 Mm PlateImplanted: Qty: 1 | | N/A: | NANCI & | | | 04.615 | | on 02/18/2018 by Pablito Barroso | | Spine | NANCI | | | .601 / | | MD Soha at [facility] IN[facility] REV | | | DEPUY | | | / | | LOC | | | | | | | + +------+--------+ +--------+--------+--------+ | 240 Mm RodsImplanted: Qty: 2 | | N/A: | NANCI & | | | 04.615 | | on 02/18/2018 by Pablito Barroso | | Spine | NANCI | | | .655 / | | MD Soha at [facility] INPATIENT REV | | | DEPUY | | | / | | LOC | | | | | | | + +------+--------+ +--------+--------+--------+ | Screw Bone 4.5mm 10mm | | N/A: | SYNTHES [facility] | | | 04.601 | | Titanium Occipitocervical | | Spine | | | | .110 / | | Spine Nonsterile Fusion | | | | | | / | | System - [id number]: | | | | | | | | Qty: 1 on 02/18/2018 by | | | | | | | | Pablito Barroso MD at [facility] | | | | | | | | INPATIENT REV LOC | | | | | | | + +------+--------+ +--------+--------+--------+ | Screw Bone 4.5mm 12mm | | N/A: | SYNTHES [place] | | | 04.601 | | Titanium Occipitocervical | | Spine | | | | .112 / | | Spine Nonsterile Fusion | | | | | | / | | System - [id number]: | | | | | | | | Qty: 1 on 02/18/2018 by | | | | | | | | Pablito Barroso MD at [facility] | | | | | | | | INPATIENT REV LOC | | | | | | | + +------+--------+ +--------+--------+--------+ | Screw Bone 4.5mm 14mm | | N/A: | SYNTHES [place] | | | 04.601 | | Titanium Occipitocervical | | Spine | | | | .114 / | | Spine Nonsterile Fusion | | | | | | / | | System - [id number]: | | | | | | | | Qty: 1 on 02/18/2018 by | | | | | | | | Pablito Barroso MD at [facility] | | | | | | | | INPATIENT REV LOC | | | | | | | + +------+--------+ +--------+--------+--------+ | Screw Bone 4.5mm 8mm Synapse | | N/A: | SYNTHES [place] | | | 04.614 | | Titanium Spine Lock | | Spine | | | | .508 / | | Nonsterile - | | | | | | / | | [id number]: Qty: 2 on | | | | | | | | 02/18/2018 by Pablito Barroso | | | | | | | | MD Soha at [facility]IENT REV | | | | | | | | LOC | | | | | | | + +------+--------+ +--------+--------+--------+ | Small ConnectorImplanted: | | N/A: | NANCI & | | | 04.615 | | Qty: 2 on 02/18/2018 by | | Bruce CHRISTINE | | | .538 / | | Pablito Barroso MD at [facility] | | | DEPUY | | | / | | INPATIENT REV LOC | | | | | | | + +------+--------+ +--------+--------+--------+ | Large ConnectorImplanted: | | N/A: | NANCI & | | | 04.615 | | Qty: 2 on 02/18/2018 by | | Bruce CHRISTINE | | | .565 / | | Pablito Barroso MD at [facility] | | | DEPUY | | | / | | INPATIENT REV LOC | | | | | | | + +------+--------+ +--------+--------+--------+ | Sealant Hemostatic Floseal | | N/A: | [id number] | | 07/20/ | [id number] | | Matrix Needle Free Adapter | | Spine | HEALTHCARE | | 2019 | 8 / | | 5ml - [id number]: | | | | | | /[id number] | | Qty: 1 on 02/18/2018 by | | | | | | 573 | | Pablito Barroso MD at [facility] | | | | | | | | INPATIENT REV LOC | | | | | | | + +------+--------+ +--------+--------+--------+ Results Not on filefrom Last 3 Months Insurance + +--------+ +--------+ + +--------+ | Payer | Benefi | Subscriber | Effect | Phone | Address | Type | | | t Plan | ID | larry | | | | | | / | | Dates | | | | | | Group | | | | | | + +--------+ +--------+ + +--------+ | MEDICARE | MEDICA | xxxxxxxxxx | 10/22/19 | [phone] | [address] | Medica | | | RE A & | | 16-Pre | 1 | [address] | re | | | B | | sent | | [place] | | | | | | | | [phone] | | + +--------+ +--------+ + +--------+ | MEDICAID [place] | OHP | xxxxxxxx | 03/23/20 | [phone] | [address] | Med[address] | | | PLUS | | 05-Pre | 6 | [id number] | id | | | OPEN | | sent | | [place] | | | | CARD | | | | [id number] | | + +--------+ +--------+ + +--------+ | [facility] | | xxxx | | | | Agency | | SERVICE | | | 012-Pr | | | | | | HEALTH | | esent | | | | | | | | | | | | | | SERVIC | | | | | | | | E | | | | | | + +--------+ +--------+ + +--------+ + +--------+ +--------+ + + | Guarantor Name | Accoun | Relation to | Date | Phone | Billing Address | | | t Type | Patient | of | | | | | | | | | | + +--------+ +--------+ + + | Jorge L Cisneros | Person | Self | [birth year] | [address] | | | al/Fam | | 1951 | [id number] | [place] [address] | | | blaire | | | 4 (Home) | | + +--------+ +--------+ + + | Jorge L Cisneros | Agency | Self | [birth year] | | [address] | | | | | 1951 | [address] | [place] [address] | | | | | | 4 (Home) | | + +--------+ +--------+ + + Advance Directives + + + + + | Type | Date Recorded | Patient | Explanation | | | | Decision Support Manager | | + + + + + | Advance | | | | | Directives and | | | | | Living Will | | | | + + + + + | Power of | | | | | Environmental Services Specialist | | | | + + + + + + + + + + | Code Status | Date | Date | Comments | | | Activated | Inactivated | | + + + + + | Full Code | 02/15/2018 | 02/23/2018 | | | | 5:53 PM | 2:55 AM | | + + + + + + + + +---+ | | | | | + + + +---+ | Full Code | 03/12/2014 | 03/16/2014 | | | | 12:32 PM | 7:36 PM | | + + + +---+ + + + +---+ | | | | | + + + +---+ | Full Code | 03/10/2013 | 03/19/2013 | | | | 5:04 PM | 7:45 PM | | + + + +---+ + + + +---+ | | | | | + + + +---+ | Full Code | 05/09/2012 | 05/12/2012 | | | | 5:32 PM | 10:06 PM | | + + + +---+ + + + +---+ | | | | | + + + +---+ | Full Code | 05/09/2012 | 05/09/2012 | | | | 8:52 AM | 5:14 PM | | + + + +---+
--- OUTSIDE RECORDS SUMMARY | ~2019-08-03 | XMS | Encounter Summary ---
Demographics + + + | Address | [address] | | | [place] [address] | + + + | Home Phone [...] + + + | Author | [facility] | + + + | Organization | [facility] | + + + | Address [...] Providers + +------+ + | Care Digital Forensics Investigator Name | Role | Phone | + +------+ + | Scooby Mcclure MD | PCP | | + +------+ + Encounter Details +--------+ + + + + | Date | Type | Department | Care Team | Description | +--------+ + + + + | 02/21/ | Document-Sc | Health Information | Unknown . | | | 2018 | anned | Services [address] | | | | | | [address] | | | | | | Mailcode: OP17A | | | | | | [facility] | | | | | | [place], [place] | | | | | | [address] | | | | | | [phone] | | | +--------+ + + + [...]
--- OUTSIDE RECORDS SUMMARY | ~2019-08-03 | XMS | Encounter Summary ---
Demographics + + + | Address | [address] | | | [place] [address] | + + + | Home Phone [...] Team Providers + +------+ + | Care Administrative Intern Name | Role | Phone | + +------+ + | Scooby Mcclure MD | PCP | | + +------+ + Encounter Details +--------+ + + + + | Date | Type | Department | Care Team | Description | +--------+ + + + + | 02/18/ | Procedure | 6A Intra Op 3181 | | | | 2018 | Pass | [facility] | | | | | | [facility] | | | | | | [facility] Admitting | | | | | | Desk Located on the | | | | | | 9th floor | | | | | | [place], [place] | | | | | | [address] | | | +--------+ + + + [...]
--- OUTSIDE RECORDS SUMMARY | ~2019-08-03 | XMS | Encounter Summary ---
Demographics + + + | Address | [address] | | | [place] [address] | + + + | Home Phone | | + + + | Preferred Language | Unknown | + + + | Marital Status | Single | + + + | Mosque Affiliation | 1041 | + + + | Race | Unknown | + + + | Ethnic Group | Unknown | + + + Author + + + | Author | [facility] | | | and [place] | + + + | Organization | [facility] | | | and [place] | [...] Team Providers + +------+ + | Care Pest Control Specialist Name | Role | Phone | + +------+ + PCP | Unavailable | + +------+ + Encounter Details +--------+ + + + + | Date | Type | Department | Care Team | Description | +--------+ + + + + | 08/14/ | Hospital | [facility] | Williams Erickson, | [facility] | | 2002 | Encounter | CON[address] | [address] | | | | | [address] | [place] | | | | | [place] | [address] | | | | | [address] | | | | | | [phone] | | | +--------+ + + + [...] [address] | | | | | | [place] [address] | | | | | | [phone] | | | | | | | | +--------+---------+ + + + | 11/26/ | Office | Cardiology | Sissy Noyola | | | 2019 | Visit | | MD Marisol [address] | | | | | | [place] | | | | | | [address] | | | | | | | | +--------+---------+ + + + documented as of this encounter Visit Diagnoses + + | Diagnosis | + + | Lumbago | + + documented in this encounter"
--- OUTSIDE RECORDS SUMMARY | ~2019-08-03 | XMS | Encounter Summary ---
Demographics + + + | Address | [address] | | | [place] [address] | + + + | Home Phone | | + + + | Preferred Language | Unknown | + + + | Marital Status | Single | + + + | Christianity Affiliation | BAP | + + + [...] Team Providers + +------+ + | Care Skip Pitman Name | Role | Phone | + [...] Taj | | | | | at [facility] | [facility] | | | | | [address] | [place] [address] | | | | | Loop Mailcode: | | | | | | OP12B [address] | | | | | | [facility] | | | | | | [place], [place] | | | | | | [address] | | | | | | [phone] | | | +--------+ + + + [...]
--- OUTSIDE RECORDS SUMMARY | ~2019-08-03 | XMS | Encounter Summary ---
Demographics + + + | Address | [address] | | | [place] [address] | + + + | Home Phone | | + + + | Preferred Language | Unknown | + + + | Marital Status | Single | + + + | Latter-Day Affiliation | BAP | + + + | Race | or | + + + | Ethnic Group | Not or | + + + Author + + + | Author | [facility] | + + + | Organization | [facility] | + + + | Address [...] Team Providers + +------+ + | Care Transformer Shop Supervisor Name | Role | Phone | + +------+ + | Gracie Mariano MD | PCP | | + +------+ + Reason for Visit + + + | Reason | Comments | + + + | Medication | | | management | | + + + Encounter Details +--------+ + + + + | Date | Type | Department | Care Team | Description | +--------+ + + + + | 05/16/ | Documentati | Rheumatology at | [facility] | Medication | | 2012 | on | [facility] | [place], [place] | management | | | | [address] | [address] | | | | | Loop Mailcode: OP09 | | | | | | Physician's | | | | | | [place], [address] [place] [address] | | | | | | [place], [place] | | | | | | [address] | | | | | | [phone] | | | +--------+ + + + [...]
--- OUTSIDE RECORDS SUMMARY | ~2019-08-03 | XMS | Encounter Summary ---
Demographics + + + | Address | [address] | | | [place] [address] | + + + | Home Phone [...] | Organization | [facility] | | | and [...] Team Providers + +------+ + | Care Station Mechanic Name | Role | Phone | + +------+ + | Scooby Mcclure DO | PCP | | + +------+ + Encounter Details +--------+ + + + + | Date | Type | Department | Care Team | Description | +--------+ + + + + | 03/06/ | Orders Only | [facility] | Sissy Noyola | | | 2019 | | CARDIOLOGY [place] Damon MD [address] | | | | | [address] | [place] | | | | | [place] | [address] | | | | | [address] | | | | | | [phone] | | | +--------+ + + + [...] | | | | | [place] [address] | | | | | | [phone] | | | | | | | | +--------+---------+ + + + | 11/26/ | Office | Cardiology | Sissy Noyola | | | 2020 | Visit | | MD Sushil Damon | | | | | | [place] | | | | | | [address] | | | | | | | | +--------+---------+ + + + documented as of this encounter Visit Diagnoses Not on filedocumented in this encounter"
--- OUTSIDE RECORDS SUMMARY | ~2019-08-03 | XMS | Encounter Summary ---
Demographics + + + | Address | [address] | | | [place] [address] | + + + | Home Phone [...] Team Providers + +------+ + | Care Fiscal Assistant Name | Role | Phone | + +------+ + | Scooby Mcclure MD | PCP | | + +------+ + Encounter Details +--------+ + + + + | Date | Type | Department | Care Team | Description | +--------+ + + + + | 03/16/ | Pharmacy | Outpatient Retail | | | | 2013 | Visit | [facility] | | | | | | [address] | | | | | | [address] [place], [place] | | | | | | [address] | | | | | | [phone] | | | +--------+ + + + [...]
--- OUTSIDE RECORDS SUMMARY | ~2019-08-03 | XMS | Encounter Summary ---
Demographics + + + | Address | [address] | | | [place] [address] | + + + | Home Phone [...] Team Providers + +------+ + | Care Professor Of Fine Art Name | Role | Phone | + [...] | | | | is, hip | [facility] | [address] | | | | | Ankylosing | Rd [facility] | Mailcode: | | | | | Spondylitis | [facility] | [address] | | | | | | [place], [place] | Ph[facility]icians | | | | | Cholecystiti | [address] | [address] | | | | | [address] | Phone: | [place], [place] | | | | | hernia | [phone] | [address] | | | | | Procedures | | Phone: | | | | | lap choly | | [phone] | | | | | | | Fax: | | | | | | | [phone] | +--------+--------+ + + + + Encounter [...] | | | | [address] | [place], [place] | (HCC); [address] | | | | Mailcode: L[address]A | [address] | hernia | | | | [facility] | [phone] | | | | | [address] [place], [place] | | | | | | [address] | | | | | | [phone] | | | +--------+---------+ + + + [...] SURAJ [facility] MD [facility] GENERAL SURGERY [address] [place] [address] Mailcode: [address] [place] [address] asimiro Nuñez MBBS - 04/03/2013 [...] His recovery has been uneventful. PLAN: 1. [place] removed from incisions. Mastisol and steri strips appiled. 2. In regards to desire for hip replacement surgery, advised to wait another month until abdominal precautions are no longer required. 2. Return to clinic: PRN Dr. Monzon has seen and examined the patient and agrees with the above plan. Signed: Angel Nuñez MD General Surgery, R1 [facility] [place] Department of Surgery Page: [id number] documented i n this encounter Plan of [...]
--- OUTSIDE RECORDS SUMMARY | ~2019-08-03 | XMS | Encounter Summary ---
Demographics + + + | Address | [address] | | | [place] [address] | + + + | Home Phone [...] Author + + + | Author | [facility] | + + + | Organization | [facility] | + + + | Address [...] Team Providers + +------+ + | Care Double Cutter Name | Role | Phone | + +------+ + | Gracie Mariano MD | PCP | | + +------+ + Encounter Details +--------+ + + + + | Date | Type | Department | Care Team | Description | +--------+ + + + + | 11/10/ | Hospital | Radiology/Imaging | | | | 2015 | Encounter | Lab at [facility] [address] | | | | | | João Myrick Mailcode: | | | | | | [id number] | | | | | | [facility], | | | | | | [facility] 1, 3rd | | | | | | Floor [place], [place] | | | | | | [address] | | | | | | [phone] | | | +--------+ + + + [...]
--- OUTSIDE RECORDS SUMMARY | ~2019-08-03 | XMS | Encounter Summary ---
Demographics + + + | Address | [address] | | | [place] [address] | + + + | Home Phone | | + + + | Preferred Language | Unknown | + + + | Marital Status | Single | + + + | Uatsdin Affiliation | 1041 | + + + | Race | Unknown | + + + | Ethnic Group | Unknown | + + + Author + + + | Author | [facility] | | | and [place] | + + + | Organization | [facility] | | | and [place] [...] Team Providers + +------+ + | Care Slab Lifting Engineer Name | Role | Phone | + +------+ + | Scooby Mcclure DO | PCP | | + +------+ + Encounter Details +--------+ + + + + | Date | Type | Department | Care Team | Description | +--------+ + + + + | 03/22/ | Orders Only | [facility] | Ted Barton MD [address] | | | 2019 | | NEUROLOGY FRANKI | [address] | | | | | [address], | [address] | | | | | [address] [address] [place] | [place] [address] | | | | | [place] [address] | [phone] | | | | | [phone] | | | +--------+ + + + [...] | | | | | [place] [address] | | | | | | [phone] | | | | | | | | +--------+---------+ + + + | 11/26/ | Office | Cardiology | Sissy Noyola | | | 2020 | Visit | | MD Sushil Damon | | | | | | [place] | | | | | | [address] | | | | | | | | +--------+---------+ + + + documented as of this encounter Visit Diagnoses Not on filedocumented in this encounter"
--- OUTSIDE RECORDS SUMMARY | ~2019-08-03 | XMS | Encounter Summary ---
Demographics + + + | Address | [address] | | | [place] [address] | + + + | Home Phone | | + + + | Preferred Language | Unknown | + + + | Marital Status | Single | + + + | Evangelical Affiliation | 1041 | + + + | Race | Unknown | + + + | Ethnic Group | Unknown | + + + Author + + + | Author | [facility] | | | and [place] | + + + | Organization | [facility] | | | and [place] [...] Team Providers + +------+ + | Care Physician Practice Administrator Name | Role | Phone | + +------+ + PCP | Unavailable | + +------+ + Encounter Details +--------+ + + + + | Date | Type | Department | Care Team | Description | +--------+ + + + + | 02/15/ | Hospital | [facility] | Conversion | Neck pain | | 2017 | Encounter | CONVERSION DEP [address] | Transaction, | | | | | RAYMOND SCHMITT | Provider Unknown | | | | | [place] | | | | | | [address] | (Fax) | | | | | [phone] | | | +--------+ + + + [...] | | | | | [place] [address] | | | | | | [phone] | | | | | | | | +--------+---------+ + + + | 11/26/ | Office | Cardiology | Sissy Noyola | | | 2019 | Visit | | MD Marisol [address] | | | | | | [place] | | | | | | [address] | | | | | | | [...] this | | CONTRAST | e | 12:23 PM | | procedure are in the | | | | PDT | | results section. | + +--------+ + + + documented in this encounter Results CT Cervical Spine wo Contrast (02/15/2018 12:23 PM PDT) + [...]
--- OUTSIDE RECORDS SUMMARY | ~2019-08-03 | XMS | Encounter Summary ---
Demographics + + + | Address | [address] | | | [place] [address] | + + + | Home Phone | | + + + | Preferred Language | Unknown | + + + | Marital Status | Single | + + + | Oriental Orthodox Affiliation | BAP | + + + | Race | or | + + + | Ethnic Group | Not or | + + + Author + + + | Author | [facility] | + + + | Organization | [facility] | + + + | Address | [...] Team Providers + +------+ + | Care Textiles Printer Name | Role | Phone | + +------+ + | Gracie Mariano MD | PCP | | + +------+ + Reason for Visit + + + | Reason | Comments | + + + | Medical Records | Immunization record | | Review | | + + + Encounter Details +--------+ + + + + | Date | Type | Department | Care Team | Description | +--------+ + + + + | 06/25/ | Abstract | Digestive Health | Harinder Felton, | Medical Records | | 2012 | | Center at [facility] [address] | [address] | Review (Immunization | | | | [place] | [place] [address] | record ) | | | | Mailcode: Center | [phone] | | | | | [facility] and | | | | | | [facility], [facility] [address] | | | | | | [place], [place] | | | | | | [address] | | | | | | [phone] | | | +--------+ + + + [...]
--- OUTSIDE RECORDS SUMMARY | ~2019-08-03 | XMS | Encounter Summary ---
Demographics + + + | Address | [address] | | | [place] [address] | + + + | Home Phone [...] Author + + + | Author | [facility] | + + + | Organization | [facility] | + + + | Address [...] Team Providers + +------+ + | Care Revenue Investigator Name | Role | Phone | + +------+ + | Gracie Mariano MD | PCP | | + +------+ + Encounter Details +--------+ + + + + | Date | Type | Department | Care Team | Description | +--------+ + + + + | 05/24/ | Document-Sc | UNKNOWN DEPARTMENT | Unknown . | | | 2013 | anned | [address] | | | | | | [address] | | | | | | [place], [place] | | | | | | [address] | | | +--------+ + + + [...] + + | LAB REPORTS | | 05/24/2013 | | Results for this | | | | 12:00 AM | | procedure are in the | | | | PDT | | results section. | + +--------+ + + + documented in this encounter Results LAB REPORTS (05/24/2013 12:00 AM PDT) + + + | Narrative | Performed At | + + + | | | | | | + + + + + | Procedure Note | + + | Sameera Patel - 11/23/2013 2:58 PM PDT | + + documented in this encounter Visit Diagnoses Not on filedocumented in this encounter"
--- OUTSIDE RECORDS SUMMARY | ~2019-08-03 | XMS | Encounter Summary ---
Demographics + + + | Address | [address] | | | [place] [address] | + + + | Home Phone [...] Author + + + | Author | [facility] | + + + | Organization | [facility] | + + + | Address | [...] Team Providers + +------+ + | Care Epic Stork Specialists Name | Role | Phone | + +------+ + | Gracie Mariano MD | PCP | | + +------+ + Reason for Visit + + + | Reason | Comments | + + + | RT Treatment Summary | | + + + Encounter Details +--------+ + + + + | Date | Type | Department | Care Team | Description | +--------+ + + + + | 05/10/ | Documentati | Radiation Oncology | Williams Paul, | RT Treatment Summary | | 2011 | on | at [facility] [address] | | | | | | [address] | | | | | | [id number] | | | | | | [facility] [place], | | | | | | [place] [address] | | | | | | [phone] | | | +--------+ + + + [...]
--- OUTSIDE RECORDS SUMMARY | ~2019-08-03 | XMS | Encounter Summary ---
Demographics + + + | Address | [address] | | | [place] [address] | + + + | Home Phone | | + + + | Preferred Language | Unknown | + + + | Marital Status | Single | + + + | Mormon Affiliation | 1041 | + + + | Race | Unknown | + + + | Ethnic Group | Unknown | + + + Author + + + | Author | [facility] | | | and [place] | + + + | Organization | [facility] | | | and [place] [...] Team Providers + +------+ + | Care China Painter Name | Role | Phone | [...] [address] | | | | | [address], | [address] | | | | | [place] [address] [place] | [place] [address] | | | | | [place] [address] | [phone] | | | | | [phone] | | | +--------+ + + + [...] | | | | | | [place] [address] | | | | | | [phone] | | | | | | | | +--------+---------+ + + + | 11/26/ | Office | Cardiology | Sissy Noyola | | | 2020 | Visit | | MD Sushil Damon | | | | | | [place] | | | | | | [address] | | | | | | | | +--------+---------+ + + + documented as of this encounter Visit Diagnoses Not on filedocumented in this encounter"
--- OUTSIDE RECORDS SUMMARY | ~2019-08-03 | XMS | Encounter Summary ---
Demographics + + + | Address | [address] | | | [place] [address] | + + + | Home Phone | | + + + | Preferred Language | Unknown | + + + | Marital Status | Single | + + + | Yazidism Affiliation | BAP | + + + [...] Team Providers + +------+ + | Care Seat Maker Name | Role | Phone | + +------+ + | Gracie Mariano MD | PCP | | + +------+ + Encounter Details +--------+ + + + + | Date | Type | Department | Care Team | Description | +--------+ + + + + | 05/06/ | Telephone | Orthopaedics at | Jorge [place] MD | | | 2011 | | [address] | [address] [facility] | | | | | [address] | [address] | | | | | Mailcode: PV430 | [place], [place] | | | | | Physician's [place] | [address] | | | | | [place], [place] | [phone] | | | | | [address] | | | | | | [phone] | | | +--------+ + + + [...]
--- OUTSIDE RECORDS SUMMARY | ~2019-08-03 | XMS | Encounter Summary ---
Demographics + + + | Address | [address] | | | [place] [address] | + + + | Home Phone | | + + + | Preferred Language | Unknown | + + + | Marital Status | Single | + + + | Scientology Affiliation | 1041 | + + + | Race | Unknown | + + + | Ethnic Group | Unknown | + + + Author + + + | Author | [facility] | | | and [place] | + + + | Organization | [facility] | | | and [place] [...] Team Providers + +------+ + | Care Consumer Sales Representative Name | Role | Phone | + +------+ + PCP | Unavailable | + +------+ + Encounter Details +--------+ + + + + | Date | Type | Department | Care Team | Description | +--------+ + + + + | 04/07/ | [facility] | [facility] | Otoniel Doe | | | 2004 | Encounter | MED CTR SLEEP | MD Raquel [address] | | | | | [place] [address] | [place] [facility] | | | | | MA[place] Sin | [place] [address] | | | | | [address] | [phone] | | | | | [phone] | | | +--------+ + + + [...] D | | | | | | [place] [address] | | | | | | [phone] | | | | | | | | +--------+---------+ + + + | 11/26/ | Office | Cardiology | Sissy Noyola | | | 2020 | Visit | | MD Marisol [address] | | | | | | [place] | | | | | | [id number] | | | | | | | | +--------+---------+ + + + documented as of this encounter Visit Diagnoses Not on filedocumented in this encounter"
--- OUTSIDE RECORDS SUMMARY | ~2019-08-03 | XMS | Encounter Summary ---
Demographics + + + | Address | [address] | | | [place] [address] | + + + | Home Phone [...] Team Providers + +------+ + | Care Java Core Developer Name | Role | Phone | + +------+ + | Scooby Mcclure MD | PCP | | + +------+ + Encounter Details +--------+ + + + + | Date | Type | Department | Care Team | Description | +--------+ + + + + | 04/06/ | Hospital | Radiology/Imaging | Arline Paige, | | | 2018 | Encounter | Lab at [facility] [address] | [address] | | | | | João [place] Mailcode: | [place], [place] | | | | | [facility] | [address] | | | | | and Zack, | [phone] | | | | | [facility] | | | | | | Floor [place], [place] | | | | | | [address] | | | | | | [phone] | | | +--------+ + + + [...] tablet by | 30 | 0 | // | | | oral tablet | mouth [...] displaced from the threaded neel attachment point. There | | | is unchanged 1 cm anterolisthesis of C2 [...] AM Preliminary: Zachary Oviedo MD | | | Dictation initiated: Zachary Oviedo [...]
--- OUTSIDE RECORDS SUMMARY | ~2019-08-03 | XMS | Encounter Summary ---
Demographics + + + | Address | [address] | | | [place] [address] | + + + | Home Phone | | + + + | Preferred Language | Unknown | + + + | Marital Status | Single | + + + | Hindu Affiliation | BAP | + + + | Race | or | + + + | Ethnic Group | Not or | + + + Author + + + | Author | [facility] | + + + | Organization | [facility] | + + + | Address [...] Team Providers + +------+ + | Care Ironer Machine Name | Role | Phone | [...] Description | +--------+---------+ + + + | 05/09/ | Surgery | [address]A [address] | Rosa M Smart MD | COMPLEX LEFT TOTAL | | 2011 | | SW [facility] | [address] [facility] | HIP ARTHROPLASTY | | | | Rd [facility] | [facility] | | | | | Hospital Admitting | [place], [place] | | | | | Desk Located on the | [address] | | | | | 9th floor | [phone] | | | | | [place], [place] | | | | | | [address] | | | +--------+---------+ + + + [...] this encounter Discharge Summaries Wilian Rosado, Gifty Vega - 05/10/2012 11:08 AM PDT INPATIENT PHYSICIAN [...] they suspect your wound is infected. Call [facility] Orthopedics first at [phone]. Diet Regular Regular diet- There are no [...] 2 weeks (or as previously scheduled). Call [phone] to confirm or schedule this appointment. PCP: As needed for any medical concerns not related to your surgery. Future Appointments Date & Time Provider Department Dept Phone Center 05/10/2012 2:15 PM Antony Patterson MD [facility] Radiation Medicine [phone] Rad Onc 05/19/2012 8:00 AM Maldonado Ewing PA-C [facility] Orthopaedics & Rehabilitation [phone] Amy thornton Deep Vein Thrombosis (Leg Blood Clot) Prevention DVT prophylaxis: You are at increased risk of forming a blood clot following your joint replacement. - We have recommended that you take Coumadin following your surgery to decrease this risk. - See discharge prescriptions for administration instructions. - Call Orthopedic Clinic at [phone] if any persistent, localized swelling that does [...] and ask for the orthopaedic surgery resident manager non profit. Additional Post-Op Instructions / What to Expect [...] feel that you will need more, call [phone] during business hours in order to get a new prescription. Please allow 48 hours for ref ills to be processed. - Schedule II narcotics can NOT be called in to a pharmacy. Please arrange for someone to p ick up your prescription or allow additional time for our clinic to mail you requested meliza vega. - On-call (after hours) MDs are not [...] Blanca Cox NP - 05/12/2012 1:26 PM PDTOrtho DIVISION SUPERINTENDENT Progress Note 05/12/2012 1:26 PM Author BLANCA [...] to dc to SNF BLANCA COX NP [facility] [address] [place] [address] Gifty Gage Md - 05/12/2012 6:23 AM [...] antibody syndrome Bowel: - Will write Mag Citrate Radiology - No new Dispo - Discharge to SNF when bed available postoperative day 2-3. enise, Rosa M Paige MD - 05/11/2012 5:57 AM PDT Ortho [...] syndrome Bowel: - Sorbitol written for prn use Radiology - AP pelvis in PACU, reviewed Labs - Postoperative day 1: BMP, CBC; postoperative day 2: CBC, reviewed Diet - Advance diet as tolerated, saline lock IV with sufficient oral intake Dispo - Discharge likely postoperative day 3. Will ask supervisor case loading to assess for SNF placem ent. I performed a history and physical examination of the patient and discussed his management with the resident. I reviewed the resident s note and agree with the documented findings and plan of care. ROSA M SMART MD [facility] [address] [facility] [address] [facility] [place] [place] [address] uff, Rosa M Paige MD - 0 [...] Citrate if sym ptomatic. No discharge until BM. Radiology - AP pelvis in PACU, reviewed--hardware in [...] plan of care. ROSA M SMART MD [facility] [address] [facility] [address] uerlinda, Rosa M Paige MD - 0 05/09/2012 6:14 PM PDT [...] Citrate if sym ptomatic. No discharge until BM. Radiology - AP pelvis in PACU, reviewed: hardware [...] plan of care. ROSA M SMART MD [facility] [address] [facility] [address] documented in this enc ounter Plan of [...] [place] | [address] | [place], [place] | | | BABAR [facility] OF CARE | [address] | [address] | | | TESTS | | | [...] [place] | [address] | [place], [place] | | | [place] OF [place] | [facility] | [address] | | | TESTS | | | [...] | + + + + + | [facility] DEPARTMENT | [address] | [place] [address] | | | PATHOLOGY | [address] [...] (H) | 60 - 99 mg/dL | [facility] - | | | GLUCOSE, | | [...] [place] | [address] | [place], [place] | | | [place] | [address] | [address] | | | TESTS | | | [...] [place] | [address] | [place], [place] | | | [facility] OF CARE | [address] | [address] | | | TESTS | | | [...] + | [facility] | [address] | [place], [place] | | | [place] | [address] | [address] | | | TESTS | | | [...] [place] | [address] | [place], [place] | | | [place] | [address] | [address] | | | TESTS | | | [...] DEPARTMENT OF | [address] | [place] [address] | | | PATHOLOGY | [address] [...] | + + + + + | [facility] | [address] | [place] [address] | | | PATHOLOGY | [address] [...] (H) | 60 - 99 mg/dL | [facility] - | | | GLUCOSE, | | [...] [place] | [address] | [place], [place] | | | JOI POINT OF CARE | [address] | [address] | | | TESTS | | | [...] [place] | [address] | [place], [place] | | | [place]AB[place] OF TIMUR | [facility] | [address] | | | TESTS | | | [...] | + + + + + | LAURIEKEE Dominguez [place] | [address] [facility] [facility] [address] | [place], [place] | | | JOI [facility] | [address] | [address] | | | TESTS | | | | + + + + + OPERATION RECORD (05/10/2012 11:16 AM PDT) + + | Transcriptions | + + | Rosa M Smart MD - 05/10/2012 7:13 AM PDT [id number] | | [id number] [place] | | [id number] Date: 05/09/2012 Attending Surgeon: Rosa M | | Melinda Smart M.D. School Library Media Program Director(s): Maldonado Ewing PA-C Please note, no | [...] The [place] the [place] due to the | | complexityof his situation. Overall surgical time was close to 3 times what | | wouldotherwise be expected for this type of procedure. There would also behigher | | anticipated rates of associated morbidity. For all of thesereasons, the complexity | | modifier is warranted. Rosa M Smart M.D.[facility] / [id number] / [id number] / [id number] /D: | | 05/09/2012T: 05/09/2012 | |ambulatory [...] 40. The patient | |traveled across the [facility] to the [place] setting due to the complexity | |of [...] | | |Rosa M Smart M.D. | |[facility] / | |[id number] / [id number] / [id number] / | | | | | | [...] [place] | [address] | [place], [place] | | | BABAR TAMEZ OF CARE | [facility] | [address] | | | TESTS | | | [...] | + + + + + | [facility] DEPARTMENT OF | [address] | [place] [address] | | | PATHOLOGY | [address] [...] | + + + + + | [facility] DEPARTMENT OF | [address] | [place] [address] | | | PATHOLOGY | [address] [...] + + | [facility] DEPARTMENT OF | [address] | [place] [address] | | | PATHOLOGY | [address] [...] + | AUTUMN [place] | [address] | [place], [place] | | | JOI [facility] | [address] | [address] | | | TESTS | | | | + + + + + X-RAY PORTABLE PELVIS 1 VIEW (05/09/2012 5:08 PM PDT) + + + + + + | Component | Value | Ref Range | Performed | Pathologist | | | | | At | Signature | + + + + + + | X-RAY | EXAM: [place] PELVIS 1 VIEW, | | | | [...] | | | | | arthroplasty. There is | | | | | | normalalignment and no | | | | | | fracture or other acute | | | | | | complication. 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 | [place], [place] | | | [facility] | [address] | [address] | | | TESTS | | | [...] + | Diagnosis | + + | Localized osteoarthrosis not specified whether primary or secondary, pelvic region and | | thigh | + + | Ankylosing spondylitis (HCC) Ankylosing spondylitis | + + documented in this encounter Administered Medications + +--------+ +------+------+ + | Medication Order | MAR | Action | Dose | Rate | Site | | | Action | Date | | | | + +--------+ +------+------+ + | bupivacaine 0.25% w/ EPINEHrine | Given | 05/09/20 | | | Surgical | | 1:200K-ketorolac injection | | 12 12:45 | | | Site | | INTRAPROCEDURE PRN, Starting Mon | | PM PDT | | | | | 05/09/12 at 1245, Until Mon | | | | | | | 05/09/12 at 1516 | | | | | | + +--------+ +------+------+ + +---+---+ | | | +---+---+ documented in this encounter
--- OUTSIDE RECORDS SUMMARY | ~2019-08-03 | XMS | Encounter Summary ---
Demographics + + + | Address | [address] | | | [place] [address] | + + + | Home Phone | | + + + | Preferred Language | Unknown | + + + | Marital Status | Single | + + + | Shinto Affiliation | 1041 | + + + | Race | Unknown | + + + | Ethnic Group | Unknown | + + + Author + + + | Author | [facility] | | | and [place] | + + + | Organization | [facility] | | | and [place] [...] Team Providers + +------+ + | Care Aerospace Engineer Officer Armament Name | Role | Phone | + +------+ + PCP | Unavailable | + +------+ + Encounter Details +--------+ + + + + | Date | Type | Department | Care Team | Description | +--------+ + + + + | 05/28/ | Hospital | [facility] MEDICAL | Conversion | | | 2016 | Encounter | [facility] XRAY | Transaction, | | | | | [address] | Provider Unknown | | | | | [address] [place], [place] | [phone] | | | | | [address] | | | | | | [phone] | Leonardo Werner S, | | | | | | PAINTER AND BODY MECHANIC APPRENTICE [address] [place] [address] | | | | | | [address] [place], | | | | | | [place] [address] | | | | | | [phone] | | | | | | | [...] | 0 | /18/20 | | | mg tablet | every [...] | | | | | [place] [address] | | | | | | [phone] | | | | | | | | +--------+---------+ + + + | 11/26/ | Office | Cardiology | Sissy Noyola | | | 2019 | Visit | | MD Sushil Damon | | | | | | [place] | | | | | | [address] | | | | | | | | +--------+---------+ + + + documented as of this encounter Visit Diagnoses Not on filedocumented in this encounter"
--- OUTSIDE RECORDS SUMMARY | ~2019-08-03 | XMS | Encounter Summary ---
Demographics + + + | Address | [address] | | | [place] [address] | + + + | Home Phone [...] Team Providers + +------+ + | Care Play Writer Name | Role | Phone | + [...] | | | | | | [place], | | | | | | [place] [address] | | | | | | [phone] | | | +--------+ + + + [...] | + +---------+ + + | [facility] DEPARTMENT OF | | | | | RADIOLOGY | | | | + +---------+ + + documented in this encounter Visit Diagnoses + + | Diagnosis | + + | Osteoarthrosis, hip Localized osteoarthrosis not specified whether primary or | | secondary, pelvic region and thigh | + + documented in this encounter"
--- OUTSIDE RECORDS SUMMARY | ~2019-08-03 | XMS | Encounter Summary ---
Demographics + + + | Address | [address] | | | [place] [address] | + + + | Home Phone [...] Team Providers + +------+ + | Care Reprographics Associate Name | Role | Phone | + +------+ + | Scooby Mcclure MD | PCP | | + +------+ + Encounter Details +--------+ + + + + | Date | Type | Department | Care Team | Description | +--------+ + + + + | 05/17/ | Automatic Riveting Machine Operator | Spine Center at | Arline Paige, | Closed displaced | | 2018 | | [facility] [address] | PA-C [address] | fracture of second | | | | Ave Mailcode: | Ave [place], [place] | cervical vertebra, | | | | [facility] | [address] | unspecified fracture | | | | and Healing, | [phone] | morphology, initial | | | | Building [address] | | encounter (HCC) | | | | [place], [place] | | (Primary Dx) | | | | [address] | | | | | | [phone] | | | +--------+ + + + [...]
--- OUTSIDE RECORDS SUMMARY | ~2019-08-03 | XMS | Encounter Summary ---
Demographics + + + | Address | [address] | | | [place] [address] | + + + | Home Phone | | + + + | Preferred Language | Unknown | + + + | Marital Status | Single | + + + | Yarsanism Affiliation | 1041 | + + + | Race | Unknown | + + + | Ethnic Group | Unknown | + + + Author + + + | Author | [facility] | | | and [place] | + + + | Organization | [facility] | | | and [place] [...] Team Providers + +------+ + | Care Burr Filer Name | Role | Phone | + +------+ + PCP | Unavailable | + +------+ + Encounter Details +--------+ + + + + | Date | Type | Department | Care Team | Description | +--------+ + + + + | 08/31/ | Hospital | [facility] | | | | 2007 - | Encounter | MED CTR DIETARY | | | | | | [address] | | | | 09/22/ | | [place] [address] | | | | 2007 | | [phone] | | | +--------+ + + + [...] D | | | | | | [place] [address] | | | | | | [phone] | | | | | | | | +--------+---------+ + + + | 11/26/ | Office | Cardiology | Sissy Noyola | | | 2020 | Visit | | MD Marisol [address] | | | | | | [place] | | | | | | [address] | | | | | | | | +--------+---------+ + + + documented as of this encounter Visit Diagnoses Not on filedocumented in this encounter"
--- OUTSIDE RECORDS SUMMARY | ~2019-08-03 | XMS | Encounter Summary ---
Demographics + + + | Address | [address] | | | [place] [address] | + + + | Home Phone | | + + + | Preferred Language | Unknown | + + + | Marital Status | Single | + + + | Alevism Affiliation | 1041 | + + + | Race | Unknown | + + + | Ethnic Group | Unknown | + + + Author + + + | Author | [facility] | | | and [place] | + + + | Organization | [facility] | | | and [place] [...] Team Providers + +------+ + | Care Weigh Machine Operator Name | Role | Phone | + +------+ + PCP | Unavailable | + +------+ + Encounter Details +--------+ + + + + | Date | Type | Department | Care Team | Description | +--------+ + + + + | 07/18/ | Hospital | [facility] | | | | 2006 | Encounter | MED CTR LABORATORY | | | | | | [address] | | | | | | [place] | | | | | | [address] | | | | | | [phone] | | | +--------+ + + + [...] D | | | | | | [place] [address] | | | | | | [phone] | | | | | | | | +--------+---------+ + + + | 11/26/ | Office | Cardiology | Sissy Noyola | | | 2020 | Visit | | MD Marisol [address] | | | | | | [place] | | | | | | [address] | | | | | | | | +--------+---------+ + + + documented as of this encounter Visit Diagnoses Not on filedocumented in this encounter"
--- OUTSIDE RECORDS SUMMARY | ~2019-08-03 | XMS | Encounter Summary ---
Demographics + + + | Address | [address] | | | [place] [address] | + + + | Home Phone [...] Author + + + | Author | [facility] | + + + | Organization | [facility] | + + + | [...] Team Providers + +------+ + | Care Spiral Binder Name | Role | Phone | + [...] Rd | | | | | | [place], [place] | | | | | | [address] | | | +--------+ + + + [...]
--- OUTSIDE RECORDS SUMMARY | ~2019-08-03 | XMS | Encounter Summary ---
Demographics + + + | Address | [address] | | | [place] [address] | + + + | Home Phone [...] + + + | Author | [facility] | + + + | Organization | [facility] | + + + | [...] Team Providers + +------+ + | Care Machinery Rigger Name | Role | Phone | + [...] | | | | | | [address] [place], [place] | | | | | | [address] | | | | | | [phone] | | | +--------+ + + + [...]
--- OUTSIDE RECORDS SUMMARY | ~2019-08-03 | XMS | Encounter Summary ---
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 [...] of water on the morning of surgery: Metoprolol Morphine Thyroid pill Do [...] or walk. Surgery Check in Locations Admitting [facility], ninth floor [facility] Surgery Check in Time: The Preoperative [...] it is after office hours, call the [facility] marble cutter operator at [phone] and ask them to page him or h er. Preparing For Your Surgery Video -- 7 minutes of instructions! Access the [facility] website [email or web address] --> POPULAR RESOURCES --> Patient Guide --> [...] his [facility] visit in our clinic [facility]emay[facility] before his left hip [...] RBBB MEDICAL DECISION MAKIN ACC/ AHA Perioperative Guidelines Pt does not meet acc/aha guidelines for additional cardiac testing Surgery Risk: Intermediate Patient-related risk: Estimated [...] opportunity to contribute to this patient's care. EMPREATRIZ TIJERINA MD [facility] [address] [facility] [address] I spent 40 minutes with the patient. [...] | + +--------+ + + + | [place] COLLECTION VENOUS | Routin | 03/02/2013 | [...] | | | | | | spondylitis ([facility]) | | + +--------+ + + + [...] ELLIE | [address] | [place], [place] | | | [facility] | [address] | [address] | | | TESTS | | | | + + + + + CBC (03/02/2013 11:16 AM PDT) + +-------+ + + + | Component | Value | Ref Range | Performed | Pathologist | | | | | At | Signature | + +-------+ + + + | WBC COUNT | 7.9 | 4.4 - 11.0 K/cu | [facility] | | | | | mm | [...] [facility] | [address] | [place] [address] | | | SERVICES, CORE | GENNARO [...] | | | LABORATORY | | | YEMENI | | | SERVICES, | | | [...] the MDRD equation recommended by the | [facility] | | National Kidney Disease Education Program. [...] Rapidly changing kidney | | | function New reference range effective 2012 for Total proteins | | | performed in Core Lab only. | | + + + + + + + + | Performing | Address | City/State/Zipcode | Phone Number | | Organization | | | | + + + + + | [facility] | [address] | [place] [address] | | | SERVICES, CORE | [address] [...] [facility] | [address] | [place] [address] | | | SERVICES, | [address] [...] | + + + + + | [facility] | [address] | [place] [address] | | | SERVICES, | [address] [...] + + | CULTURE | C NasalSource: Nasal | | [place] - | | | RESULT | | | AIRPORT - | | | | GRAM STAIN:No | | [place] | | | | Methicillin resistant | [...] + | [place] - [place] - | [address] | [place] [address] | | | [place] | | | | + + + [...] CRABTREE | | | | | | (1214) on 03/04/2013 | | | | | | 7:58:54 AM | | | | + + + + + + + + | Specimen | + + | | + + + + + | Narrative | Performed At | + + + | Please click | [facility] | | on view image for the detailed interpretation from [facility] results. | CARDIOLOGY | + + + + + | Procedure Note | + + | Interface, Cardiology Results - 03/04/2013 8:00 AM PDT Please click on view image | | for the detailed interpretation from [facility] results. | + + + + + + + | Performing | Address | City/State/Zipcode | Phone Number | | Organization | | | | + + + + + | [facility] | [address] | [place], [place] | | | CARDIOLOGY | [address] | [address] | | + + + + + [...]
--- OUTSIDE RECORDS SUMMARY | ~2019-08-03 | XMS | Encounter Summary ---
Demographics + + + | Address | [address] | | | [place] [address] | + + + | Home Phone | | + + + | Preferred Language | Unknown | + + + | Marital Status | Single | + + + | Latter Day Affiliation | BAP | + + + [...] Team Providers + +------+ + | Care Visual Artist Name | Role | Phone | + +------+ + | Gracie Mariano MD | PCP | | + +------+ + Encounter Details +--------+ + + + + | Date | Type | Department | Care Team | Description | +--------+ + + + + | 05/06/ | Aoc Operations Intelligence Officer | Orthopaedics at | Maldonado Ewing, | | | 2011 | | [facility] [address] | [address] | | | | | [address] | | | | | | Mailcode: [id number] | | | | | | [address] [place] | | | | | | [place], [place] | | | | | | [address] | | | | | | [phone] | | | +--------+ + + + [...]
--- OUTSIDE RECORDS SUMMARY | ~2019-08-03 | XMS | Encounter Summary ---
Demographics + + + | Address | [address] | | | [place] [address] | + + + | Home Phone | | + + + | Preferred Language | Unknown | + + + | Marital Status | Single | + + + | Rastafarian Affiliation | 1041 | + + + | Race | Unknown | + + + | Ethnic Group | Unknown | + + + Author + + + | Author | [facility] | | | and [place] | + + + | Organization | [facility] | | | and [place] [...] Team Providers + +------+ + | Care Freelance Art Director Name | Role | Phone | + +------+ + PCP | Unavailable | + +------+ + Encounter Details +--------+ + + + + | Date | Type | Department | Care Team | Description | +--------+ + + + + | 08/26/ | Hospital | [facility] | Conversion | Status post cervical | | 2017 | Encounter | [facility] XRAY | Transaction, | spinal arthrodesis | | | | [address] | Provider Unknown | | | | | [address] [place], [place] | [phone] | | | | | [address] | | | | | | [phone] | Leonardo Werner, | | | | | | BRANCH BILLING PAYROLL CLERK [address] [place] [address] | | | | | | [address] [place], | | | | | | [place] [address] | | | | | | [phone] | | | | | | | [...] | | | | | [place] [address] | | | | | | [phone] | | | | | | | | +--------+---------+ + + + | 11/26/ | Office | Cardiology | Sissy Noyola | | | 2019 | Visit | | MD Marisol [address] | | | | | | [place] | | | | | | [address] | | | | | | | | +--------+---------+ + + + documented as of this encounter Procedures + +--------+ + + + | Procedure Name | Priori | Date/Time | Associated Diagnosis | Comments | | | ty | | | | + +--------+ + + + | XR CERVICAL SPINE 2 | Routin | 08/26/2017 | | Results for this | | OR 3 VIEWS | e | 12:21 PM | | procedure are in the | | | | PST | | results section. | + +--------+ + + + documented in this encounter Results XR Cervical Spine 2 or 3 Views (08/26/2017 12:21 PM PST) + + | Specimen | + + | | + + + + + | Impressions | Performed At | + + + | 1. Uncomplicated appearance of dorsal lateral fusion hardware | | | extending from C3 through T2 with decompression laminectomies. | | | | | + + + + + + | Narrative | Performed At | + + + | JORGE L CISNER[facility] 1950 66 years Male XR CERVICAL SPINE LIMITED | | | 2-3 VIEW 08/26/2017 12:21 PM INDICATION: Status post neck surgery, | | | follow-up COMPARISON: 05/28/2017 TECHNIQUE: Cervical spine | | | series, 3 views FINDINGS: The craniocervical junction is | | | preserved. There is no prevertebral soft tissue swelling. Lateral mass | | | fixation hardware is noted of the cervical spine extending from C3 | | | through T2. There is moderate generalized osteopenia. Vertebral body | | | heights are maintained. Decompression laminectomies are seen | | | throughout the cervical spine, unchanged. | | + + + + + | Procedure Note | + + | Markell, Rad Conversion - 04/05/2019 4:06 AM PDT JORGE L Hodge [id number] years MaleXR | | CERVICAL SPINE LIMITED 2-3 VIEW08/26/2017 12:21 PM INDICATION: Status post neck surgery, | | follow-up COMPARISON: 05/28/2017 TECHNIQUE: Cervical spine series, 3 views FINDINGS: The | | craniocervical junction is preserved. There is no prevertebral soft tissue swelling. | | Lateral mass fixation hardware is noted of the cervical spine extending from C3 through | | T2. There is moderate generalized osteopenia. Vertebral body heights are maintained. | | Decompression laminectomies are seen throughout the cervical spine, unchanged. | | IMPRESSION: 1. Uncomplicated appearance of dorsal lateral fusion hardware extending | | from C3 through T2 with decompression laminectomies. | |TECHNIQUE: Cervical spine series, 3 views | | | |FINDINGS: The craniocervical junction is preserved. There is no prevertebral soft tissue sw elling. Lateral mass fixation hardware is noted of the cervical spine extending from C3 thro ugh T2. There is moderate generalized osteopenia. Vertebral body | |heights are maintained. Decompression laminectomies are seen throughout the cervical spine, unchanged. | | | |IMPRESSION: | |1. Uncomplicated appearance of dorsal lateral fusion hardware extending from C3 through T2 with decompression laminectomies. | | | | | + + documented in this encounter Visit Diagnoses + + | Diagnosis | + + | Status post cervical spinal arthrodesis Arthrodesis status | + + documented in this encounter"
--- OUTSIDE RECORDS SUMMARY | ~2019-08-03 | XMS | Encounter Summary ---
Demographics + + + | Address | [address] | | | [place] [address] | + + + | Home Phone [...] Team Providers + +------+ + | Care Photolettering Machine Operator Name | Role | Phone [...] | | 2009 | on | [address] | Joint) | | | | [address] | [address] | | | | | Mailcode: [id number] | [place], [place] | | | | | [facility] | [address] | | | | | [facility] [place] | [phone] | | | | | [address] | | | | | | [phone] | | | +--------+ + + + [...]
--- OUTSIDE RECORDS SUMMARY | ~2019-08-03 | XMS | Encounter Summary ---
Demographics + + + | Address | [address] | | | [place] [address] | + + + | Home Phone [...] Author + + + | Author | [facility] | + + + | Organization | [facility] | + + + | [...] Team Providers + +------+ + | Care Radio Television Technical Director Name | Role | Phone | + +------+ + | Gracie Mariano MD | PCP | | + +------+ + Encounter Details +--------+ + + + + | Date | Type | Department | Care Team | Description | +--------+ + + + + | 08/11/ | Coating Manager | Orthopaedics at | Jorge Walker MD | Osteoarthrosis, hip | | 2011 | | [address] | [address] | (Primary Dx); Hip | | | | [address] | [address] | pain | | | | Mailcode: [id number] | [place], [place] | | | | | [facility] | [address] | | | | | [place], [place] | [phone] | | | | | [address] | | | | | | [phone] | | | +--------+ + + + [...] | | | | | | periprosthetic lucency. 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 | | | | | | No fracture or focal | | | | [...] | | | | | signed / Jakob Snider | | | | | | 08/11/2012 16:07 PM | | | | + + + + + + + + | Specimen | + + | | + + + +---------+ + + | Performing | Address | City/State/Zipcode | Phone Number | | Organization | | | | + +---------+ + + | [facility] DEPARTMENT OF | | | | [...]
--- OUTSIDE RECORDS SUMMARY | ~2019-08-03 | XMS | Encounter Summary ---
Demographics + + + | Address | [address] | | | [place] [address] | + + + | Home Phone [...] Team Providers + +------+ + | Care Entry Level Truck Driver Name | Role | Phone | + [...] [address] | | | | | | [facility] | [address] | | | | | | & [address] | [address] [place], | | | | | | [address] | [place] | | | | | | [address] | [address] | | | | | | [place], | Phone: | | | | | | [place] [address] | [phone] | | | | | | Phone: | Fax: | | | | | | [phone] | [phone] | | | | | | Fax: | | | | | | | [phone] | | +--------+--------+ + + + + Encounter Details +--------+---------+ + + + | Date | Type | Department | Care Team | Description | +--------+---------+ + + + | 05/23/ | Office | Orthopaedics at | Rosa M Smart MD | Ankylosing | | 2008 | Visit | [address] | [address] | Spondylitis (HCC); | | | | [address] | [address] | Osteoarthrosis, Hip | | | | Mailcode: [id number] | [place], [place] | | | | | [facility] | [address] | | | | | [place], [place] | [phone] | | | | | [address] | | | | | | [phone] | | | +--------+---------+ + + + [...] contacted to schedule. ROSA M SMART MD [facility] [address] [place] [address] Mailcode: Pv430 [facility] [address] Raghav Alvarenga Md - 05/23/2009 12:09 [...]
--- OUTSIDE RECORDS SUMMARY | ~2019-08-03 | XMS | Encounter Summary ---
Demographics + + + | Address | [address] | | | [place] [address] | + + + | Home Phone [...] Team Providers + +------+ + | Care Drama Teacher Name | Role | Phone | [...] | Rheumatology | Diagnoses | Purnima | [facility] | | | | | Ankylosing | MD Harinder | [address] | | | | | spondylitis | [address] | [address] | | | | | ([facility]) | [address] | Loop | | | | | Procedures | [facility], | Mailcode: | | | | | CONSULT TO | [place] [address] | OP09 | | | | | RHEUMATOLOGY | Phone: | Physician's | | | | | | [phone] | [place], [facility] | | | | | | Fax: | Floor | | | | | | [phone] | [place], [place] | | | | | | | [address] | | | | | | | Phone: | | | | | | | [phone] | | | | | | | Fax: | | | | | | | [phone] | +--------+--------+ + + + + Encounter Details +--------+ + + + + | Date | Type | Department | Care Team | Description | +--------+ + + + + | 02/16/ | Lodging House Keeper | Digestive Health | Harinder Felton, | Ankylosing | | 2013 | | Center at [facility] [address] | MD [address] | spondylitis (HCC) | | | | [address] | [place] [address] | (Primary Dx) | | | | Mailcode: Center | [phone] | | | | | for Health and | | | | | | Healing, [address] | | | | | | [place], [place] | | | | | | [address] | | | | | | [phone] | | | +--------+ + + + [...]
--- OUTSIDE RECORDS SUMMARY | ~2019-08-03 | XMS | Encounter Summary ---
Demographics + + + | Address | [address] | | | [place] [address] | + + + | Home Phone [...] Author + + + | Author | [facility] | + + + | Organization | [facility] | + + + | Address [...] Team Providers + +------+ + | Care Sheet Metal Former Name | Role | Phone | + +------+ + | Gracie Mariano MD | PCP | | + +------+ + Encounter Details +--------+ + + + + | Date | Type | Department | Care Team | Description | +--------+ + + + + | 01/31/ | Hospital | Radiology/Imaging | Leroy Treviño MD | | | 2018 | Encounter | Lab at [facility] [address] | [address] [facility] | | | | | [address] Mailcode: | [address] | | | | | [facility] | [place], [place] | | | | | and [place], | [address] | | | | | [facility] | [phone] | | | | | Floor [place], [place] | | | | | | [address] | | | | | | [phone] | | | +--------+ + + + [...] + +--------+ + + + | X-RAY SHOULDER 3+ | Routin | 01/31/2018 | Shoulder arthritis | Results for this | | VIEWS RIGHT | e | 10:51 AM | | procedure are in the | | | | PDT | | results section. | + +--------+ + + + documented in this encounter Results X-RAY SHOULDER 3+ VIEWS [...] | Preliminary: Myrtle Metz MD Dictation initiated: Myrtle Metz MD 01/31/2018 10:53 [...] Diagnosis | + + | Shoulder arthritis Unspecified arthropathy, shoulder region | + + documented in this encounter"
--- OUTSIDE RECORDS SUMMARY | ~2019-08-03 | XMS | Encounter Summary ---
Demographics + + + | Address | [address] | | | [place] [address] | + + + | Home Phone [...] Providers + +------+ + | Care Human Resource Internship Name | Role | Phone | + [...] | Ankylosing | | | | Services [address] | [address] [place], [place] | spondylitis (HCC) | | | | [address] | [address] | | | | | Mailcode: [id number] | | | | | | [facility] | | | | | | [place], [place] | | | | | | [address] | | | | | | [phone] | | | +--------+---------+ + + + [...] might be different fro m the original. [id number] JORGE L CISNEROS Date of : 1950 Start of care: 08/22/2009 Date of onset: 05/23/2009 Referring/Attending Practitioner: Jorge Walker Primary/Referral Diagnosis/ICD-9: Encounter Diagnoses Code Name Primary? Qualifier 715.35M Osteoarthrosis, hip 720.0 Ankylosing spondylitis Insurance: Payor: MEDICAID [place] Plan: Appsee Product Type: Medicaid Service period from: 08/22/2009 [...] change in their status. JUDY GUTIÉRREZ, PT [facility] [address] [place] [address] Mailcode: [id number] [address] [place] [facility] [address] documented in this en counter Plan of [...]
--- OUTSIDE RECORDS SUMMARY | ~2019-08-03 | XMS | Encounter Summary ---
Demographics + + + | Address | [address] | | | [place] [address] | + + + | Home Phone | | + + + | Preferred Language | Unknown | + + + | Marital Status | Single | + + + | Spiritism Affiliation | BAP | + + + | Race | or | + + + | Ethnic Group | Not or | + + + Author + + + | Author | [facility] | + + + | Organization | [facility] | + + + | [...] Team Providers + +------+ + | Care Diamond Sizer And Sorter Name | Role | Phone | + +------+ + | Gracie Mariano MD | PCP | | + +------+ + Reason for Visit PROC - Inpatient Surgery (Routine) +--------+--------+ + [...] | | | is, hip Hip | [facility] | [address] | | | | | pain, | & Fractur | [address] [place], | | | | | bilateral | [address] | [place] | | | | | Ankylosing | [address] | [address] | | | | | spondylitis | [place], | Phone: | | | | | ([facility]) | [place] [address] | [phone] | | | | | Procedures | Phone: | Fax: | | | | | REQUEST TO | [phone] | [phone] | | | | | SURGERY | Fax: | | | | | | PLANT ACCOUNTANT | [phone] | | | | | | MT TOTAL HIP | | | | | | | | | | | | | | ARTHROPLASTY | | | +--------+--------+ + + + + Encounter Details +--------+ + + + + | Date | Type | Department | Care Team | Description | +--------+ + + + + | 05/10/ | Erroneous | Orthopaedics at | Jorge Walker MD | | | 2011 | Enc-IP | [address] | [address] [facility] | | | | | [address] | [address] | | | | | Mailcode: [id number] | [place], [place] | | | | | [facility] | [address] | | | | | [place], [place] | [phone] | | | | | [address] | | | | | | [phone] | | | +--------+ + + + [...] + | Diagnosis | + + | Osteoarthritis of hip - Primary Osteoarthrosis, unspecified whether generalized or | | localized, pelvic region and thigh | + + documented in this encounter"
--- OUTSIDE RECORDS SUMMARY | ~2019-08-03 | XMS | Encounter Summary ---
Demographics + + + | Address | [address] | | | [place] [address] | + + + | Home Phone | | + + + | Preferred Language | Unknown | + + + | Marital Status | Single | + + + | Cheondoism Affiliation | BAP | + + + [...] Team Providers + +------+ + | Care Tape Transferrer Name | Role | Phone | + [...] | | | Ave Mailcode: [address] | [place], [place] | | | | | [facility] | [address] | | | | | and Zack, | [phone] | | | | | [facility] | | | | | | Floor [facility] [place] | | | | | | [address] | | | | | | [phone] | | | +--------+ + + + [...]
--- OUTSIDE RECORDS SUMMARY | ~2019-08-03 | XMS | Encounter Summary ---
Demographics + + + | Address | [address] | | | [place] [address] | + + + | Home Phone [...] Team Providers + +------+ + | Care Automotive Teacher Name | Role | Phone | [...] + + + + | 03/12/ | Hospital | [facility] [address] | Rosa M Smart MD | | | 2013 - | Encounter | [address] | [address] | | | | | [place], | [facility] | | | 03/16/ | | [place] [address] | [place], [place] | | | 2013 | | [phone] | [address] | | | | | | [phone] | | | | | | | [...] might be different fr om the original. [facility] DISCHARGE SUMMARY & INTERDISCIPLINARY INSTRUCTIONS Patient: Jorge L Cisneros CSN: [id number] Admission Date: 03/12/2014 Discharge Date: 03/16/2014 Attending Physician: Rosa M Smart MD PCP: Gracie Mariano MD Service: [facility] Orthopaedics & Rehabilitation Diagnoses Principal Final Diagnosis: 1. Ankylosing spondylitis. 2. 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 Additional Diagnoses: DM2, HTN, GERD, Obesity, Hypothyroidism Procedures On 05-09-2014 1. Right total hip arthroplasty with complexity modifier. 2. Placement of incisional wound VAC. Brief Hospital Course 1. JorgeL Cisneros was admitted on 03/12/2014 for an [...] they suspect your wound is infected. Call [facility] Orthopedics first at [phone]. Activity Weight bear as tolerated on both [...] AM Rosa M [facility] [phone] Orthopedics PCP: As needed for any medical [...] our pleasure. Ender Phelps MD Pager # [phone] documented in this enc ounter Discharge Instructions Instructions Gifty Coffey RN - 03/16/2014Patient Education Materials: AVS paperw ork & dressing supplies. Provided patient with morphine, sennakot and miralax that were fill ed at our outpatient pharmacy. No personal belongings held in our safe. Pt. Did not have an y additional questions at this time. Patients transportation from [facility] transporting [facility] back home. Additional Instructions: Per Sarah Gee NP: Pt is to take three 1 mg warfarin tabs for a tot al of 3 mg warfarin only this evening of 03/16/2014. Patient will then resume taking his norm al dose of 6mg warfarin starting on . Patient education provided by this sba underwriter beti bowen these medication instructions. HANNA drain [...] home today Ender Phelps MD Pager # [phone] uff, Rosa M Paige MD - 03/15/2014 [...] possibly tomorrow Ender Phelps MD Pager # [phone] I performed a history and physical examination of the patient and discussed his management with the resident. I reviewed the resident s note and agree with the documented findings and plan of care. ROSA M SMART MD [facility] [address] [address] Rosa M Cárdenas MD - 0 03/14/2014 7:27 AM PDT [...] wants to go home. Yuriy vega d/w CM. Ender Phelps MD Pager # [phone] I performed a history and physical examination of the patient and discussed his management with the resident. I reviewed the resident s note and agree with the documented findings and plan of care. ROSA M SMART MD [facility] [address] [place] [address] Ender Camara MD - 03/13/2014 8:08 AM [...] Dispo: pending Ender Phelps MD Pager # [phone] Rosa M Cárdenas MD - 03/12/2014 5:36 PM [facility] ORTHOPAEDIC SURGERY POST OPERATIVE CHECK IDENTIFICATION: Patient: [...] treatment tomorrow Ender Phelps MD Pager # [phone] I performed a history and physical examination of the patient and discussed his management with the resident. I reviewed the resident s note and agree with the documented findings and plan of care. ROSA M SMART MD [facility] [address] [place], [place] [id number] Karen Stephen MD - 03/12/2014 12:32 PM [...] [place] | [address] | [place], [place] | | | BABAR TAME[facility] OF CARE | [facility] | [address] | | | TESTS | | | [...] AUTUMN GARCÍA | [address] | [place] [address] | | | SERVICES, NAY | GENNARO [...] Venous Thromboembolism (2.0 - 3.0) INR INR for | LABORATORY | | most patients with mech. valves (2.5 - 3.5) INR | NAY KANG | + + + + + + + + | Performing | Address | City/State/Zipcode | Phone Number | | Organization | | | | + + + + + | [facility] | [address] | [place] [address] | | | SERVICES, NAY | GENNARO [...] | | | LABORATORY | | | [place] | | | SERVICES, | | | [...] | + + + + + | [facility] | [address] | [place] [address] | | | SERVICES, CORE | PARK [...] (H) | 60 - 99 mg/dL | [facility] - | | | GLUCOSE, [...] | AUT[facility]N [place] | [address] | [place], [place] | | | [place] OF [place] | [facility] | [address] | | | TESTS | | | [...] [facility] | [address] | [place], [place] | | | BAB[facility] TAME[facility] OF CARE | [facility] | [address] | | | TESTS | | | [...] (H) | 60 - 99 mg/dL | [facility] - | | | GLUCOSE, [...] ELLIE | [address] | [place], [place] | | | BAB[facility] OF [facility] | [address] | [address] | | | TESTS | | | [...] [facility] | [address] | [place] [address] | | | SERVICES, CORE | PARK [...] | | | LABORATORY | | | [place] | | | SERVICES, | | | [...] Interpretive Information: <60 mL/min/1.73 sq m | PEARL, CORE | | Chronic Kidney Disease <15 [...] | + + + + + | Seb[facility] | [address] | [place] [address] | | | NAY KANG | GENNARO [...] Venous Thromboembolism (2.0 - 3.0) INR INR for | LABORATORY | | most patients with mech. valves (2.5 - 3.5) INR | SERVICES, CORE | + + + + + + + + | Performing | Address | City/State/Zipcode | Phone Number | | Organization | | | | + + + + + | [facility] | [address] | [place] [address] | | | SERVICES, CORE | GENNARO [...] [place] | [address] | [place], [place] | | | BAB[facility]AMEZ OF CARE | [facility] | [address] | | | TESTS | | | [...] (H) | 60 - 99 mg/dL | [facility] - | | | GLUCOSE, [...] ELLIE | [address] | [place], [place] | | | JOI POINT OF CARE | [address] | [address] | | | TESTS | | | [...] ELLIE | [address] | [place], [place] | | | BAB[place] OF [place] | [facility] | [address] | | | TESTS | | | [...] + | [facility] | [address] | [place] [address] | | | SERVICES, CORE | GENNARO [...] | | | LABORATORY | | | [place] | | | SERVICES, | | | [...] + | [facility] | [address] | [place] [address] | | | SERVICES, CORE | PARK [...] Venous Thromboembolism (2.0 - 3.0) INR INR for | LABORATORY | | most patients with mech. valves (2.5 - 3.5) INR | SERVICES, CORE | + + + + + + + + | Performing | Address | City/State/Zipcode | Phone Number | | Organization | | | | + + + + + | [facility] | [address] | [place] [address] | | | SERVICES, CORE | GENNARO [...] (H) | 60 - 99 mg/dL | [facility] - | | | GLUCOSE, [...] [place]ET[place] | [address] | [place], [place] | | | [facility] OF [facility] | [facility] | [address] | | | TESTS | | | [...] ELLIE | [address] | [place], [place] | | | BAB[place] | [address] | [address] | | | TESTS | | | [...] ELLIE | [address] | [place], [place] | | | JOI POINT OF CARE | [facility] | [address] | | | TESTS | | | | + + + + + CAPILLARY BLOOD GLUCOSE (NO CHG), POC (03/13/2014 9:04 AM PDT) + +-------+ + + + | Component | Value | Ref Range | Performed | Pathologist | | | | | At | Signature | + +-------+ + + + | BLOOD | 96 | 60 - 99 mg/dL | [facility] - | | | GLUCOSE, | | [...] [place] | [address] | [place], [place] | | | BABAR TAMEZ OF CARE | [facility] | [address] | | | TESTS | | | [...] [facility] | [address] | [place] [address] | | | SERVICES, CORE | PARK [...] Venous Thromboembolism (2.0 - 3.0) INR INR for | LABORATORY | | most patients with mech. valves (2.5 - 3.5) INR | SERVICES, CORE | + + + + + + + + | Performing | Address | City/State/Zipcode | Phone Number | | Organization | | | | + + + + + | [facility] | [address] | [place] [address] | | | SERVICES, CORE | PARK [...] | | | LABORATORY | | | [place] | | | SERVICES, | | | [...] + | [facility] | [address] | [place] [address] | | | NAY KANG | GENNARO [...] - ELLIE | [address] | [place], [place] | | | BABAR TAMEZ OF CARE | [address] | [address] | | | TESTS | | | [...] (H) | 60 - 99 mg/dL | [facility] - | | | GLUCOSE, [...] [place] | [address] | [place], [place] | | | B[facility] OF [facility] | [address] | [address] | | | TESTS | | | | + + + + + X-RAY PORTABLE PELVIS 1 VIEW (03/12/2014 12:28 PM PDT) + + + + + + | Component | Value | Ref Range | Performed | Pathologist | | | | | At | Signature | + + + + + + | X-RAY | STUDY: TN PELVIS 1 VIEW | | | | [...] | | | | ana laura / GRADY | | | | | [...] [place] | [address] | [place], [place] | | | BAB[place] | [address] | [address] | | | TESTS | | | | + + + + + LACTATE (IDANE), POC (03/12/2014 10:19 AM PDT) + +-------+ [...] + | [facility] | [address] | [place], [place] | | | BABAR TAMEZ OF CARE | [facility] | [address] | | | TESTS | | | | + + + + + SODIUM (DIANE), POC (03/12/2014 10:19 AM PDT) + +-------+ + + + | Component | Value | Ref Range | Performed | Pathologist | | | | | At | Signature | + +-------+ + + + | SODIUM, POC | 136 | 134 - 143 | [facility] - | | | | | mmol/L [...] [place] | [address] | [place], [place] | | | JOI POINT OF CARE | [address] | [address] | | | TESTS | | | | + + + + + POTASSIUM (DIANE)LORETTA (03/12/2014 10:19 AM PDT) + +-------+ + + + | Component | Value | Ref Range | Performed | Pathologist | | | | | At | Signature | + +-------+ + + + | POTASSIUM, | 5.0 | 3.4 - 5.0 | [facility] - | | | POC | | mmol/L | [facility] | | | | | | BABAR TAMEZ | | | | | | OF CARE | | | | | | TESTS | | + +-------+ + + + + + | Specimen | + + | | + + + + + + + | Performing | Address | City[facility]State[facility] | Phone Number | | Organization | | | | + + + + + | [facility] - [facility] | [address] | [place], [place] | | | BAB[place] | [facility] | [address] | | | TESTS | | | [...] ELLIE | [address] | [place], [place] | | | BAB[place] OF [place] | [facility] | [address] | | | TESTS | | | | + + + + + CHLORIDE (DIANE), POC (03/12/2014 10:19 AM PDT) + [...] [place] | [address] | [place], [place] | | | [facility] OF [facility] | [address] | [address] | | | TESTS | | | | + + + + + MATT IONIZED CA (DIANE), POC (03/12/2014 10:19 AM PDT) + [...] [place] | [address] | [place], [place] | | | BABAR TAMEZ OF CARE | [facility] | [address] | | | TESTS | | | | + + + + + HEMOGLOBIN (DIANE) POC (03/12/2014 10:19 AM PDT) + [...] ELLIE | [address] | [place], [place] | | | BABAR TAMEZ OF CARE | [facility] | [address] | | | TESTS | | | [...] + + + | [facility] | [address] | [place], [place] | | | JOI POINT OF CARE | [address] | [address] | | | TESTS | | | | + + + + + ERAN(PT) POC RESULT (03/12/2014 8:21 AM PDT) + [...] Venous Thromboembolism (2.0 - 3.0) INR INR for | LABORATORY | | most patients with mech. valves (2.5 - 3.5) INR | SERVICES, CORE | + + + + + + + + | Performing | Address | City/State/Zipcode | Phone Number | | Organization | | | | + + + + + | [facility] | [address] | [place] [address] | | | NAY KANG | GENNARO [...] (H) | 60 - 99 mg/dL | [facility] - | | | GLUCOSE, [...] [place] | [address] | [place], [place] | | | JOI POINT OF CARE | [address] | [address] | | | TESTS | | | [...] | | | + +--------+ +--------+------+------+ | artificial tears (hypromellose) | Given | 03/16/20 | 1 drop | | | | (NATURES TEARS) 0.4 % ophthalmic | | 14 8:56 | | | | | drops 1 drop 1 drop, Both Eyes, | | AM PDT | | | | | NEEDED, Starting Wed03/15/14 | | | | | | | at 0845, Until Wed03/16/14 at | | | | | | | 1936, dry eyes | | | | | | + +--------+ +--------+------+------+ +-------+ +--------+---+---+ | Given | 03/16/20 | 1 drop | | | | | 14 6:48 | | | | | | AM PDT | | | | +-------+ +--------+---+---+ | Given | 03/16/20 | 1 drop | | | | | 14 3:32 | | | | | | AM PDT | | | | +-------+ +--------+---+---+ +---+---+ | | | +---+---+ + +---------+ +-----+---+---+ | ceFAZolin (ANCEF) IV 2 g 2 g, | New Bag | 03/13/20 | 2 g | | | | intravenous, EVERY 8 HOURS, 2 | | 14 4:00 | | | | | doses, First dose on Wed03/12/14 | | AM PDT | | | | | at 1700, Last dose on Wed03/13/14 | | | | | | | at 0100 | | | | | | + +---------+ +-----+---+---+ +---------+ +-----+---+---+ | New Bag | 03/12/20 | 2 g | | | | | 14 7:55 | | | | | | PM PDT | | | | +---------+ +-----+---+---+ +---+---+ | | | +---+---+ + +---------+ +--------+---+---+ | fentaNYL citrate (PF) | New Bag | 03/12/20 | 50 mcg | | | | (SUBLIMAZE) injection 50 mcg 50 | | 14 11:27 | | | | | mcg, intravenous, POSTPROCEDURE | | AM PDT | | | | | PRN, 4 doses, Starting Mon | | | | | | | 03/12/14 at 1043, Until Mon | | | | | | | 03/12/14 at 1232, severe pain | | | | | | + +---------+ +--------+---+---+ +---------+ +--------+---+---+ | New Bag | 03/12/20 | 50 mcg | | | | | 14 11:25 | | | | | | AM PDT | | | | +---------+ +--------+---+---+ + +---+ | | | + +---+ | fentaNYL citrate (PF) | | | (SUBLIMAZE) injection 1 dose, | | | Starting Wed03/12/14 at 1119, | | | Until Wed03/12/14 at 1125 | | + +---+ | | | + +---+ + +-------+ +------+---+---+ | glipiZIDE (GLUCOTROL) tablet 5 | Given | 03/16/20 | 5 mg | | | | mg 5 mg, oral, TWICE DAILY, | | 14 8:52 | | | | | First dose on Wed03/12/14 at | | AM PDT | | | | | 1300, Until Discontinued | | | | | | + +-------+ +------+---+---+ +-------+ +------+---+---+ | Given | 03/15/20 | 5 mg | | | | | 14 8:54 | | | | | | PM PDT | | | | +-------+ +------+---+---+ | Given | 03/15/20 | 5 mg | | | | | 14 8:26 | | | | | | AM PDT | | | | +-------+ +------+---+---+ +---+---+ | | | +---+---+ + +-------+ + +---+---+ | guar gum (BENEFIBER) oral | Given | 03/16/20 | 1 packet | | | | powder 1 packet 1 packet, oral, | | 14 8:52 | | | | | DAILY, First dose on Wed03/14/14 | | AM PDT | | | | | at 1130, Until Discontinued | | | | | | + +-------+ + +---+---+ +-------+ + +---+---+ | Given | 03/15/20 | 1 packet | | | | | 14 8:26 | | | | | | AM PDT | | | | +-------+ + +---+---+ | Given | 03/14/20 | 1 packet | | | | | 14 9:58 | | | | | | AM PDT | | | | +-------+ + +---+---+ +---+---+ | | | +---+---+ + +---------+ +--------+---+---+ | HYDROmorphone (DILAUDID) | New Bag | 03/12/20 | 0.5 mg | | | | injection 0.2-0.5 mg 0.2-0.5 mg, | | 14 12:13 | | | | | intravenous, POSTPROCEDURE PRN, | | PM PDT | | | | | Starting Wed03/12/14 at 1122, | | | | | | | Until Wed03/12/14 at 1256, | | | | | | | moderate pain | | | | | | + +---------+ +--------+---+---+ +---------+ +--------+---+---+ | New Bag | 03/12/20 | 0.5 mg | | | | | 14 12:01 | | | | | | PM PDT | | | | +---------+ +--------+---+---+ | New Bag | 03/12/20 | 0.5 mg | | | | | 14 11:45 | | | | | | AM PDT | | | | +---------+ +--------+---+---+ + +---+ | | | + +---+ | HYDROmorphone (DILAUDID) | | | injection 1 dose, Starting Mon | | | 03/12/14 at 1119, Until Mon | | | 03/12/14 at 1130 | | + +---+ | | | + +---+ + +-------+ + +---+---+ | insulin glargine (LANTUS) | Given | 03/15/20 | 44 Units | | | | injection 44 Units 44 Units, | | 14 9:02 | | | | | subcutaneous, AT BEDTIME, First | | PM PDT | | | | | dose on Wed03/12/14 at 2200, | | | | | | | Until Discontinued | | | | | | + +-------+ + +---+---+ +-------+ + +---+---+ | Given | 03/14/20 | 44 Units | | | | | 14 10:03 | | | | | | PM PDT | | | | +-------+ + +---+---+ | Given | 03/13/20 | 44 Units | | | | | 14 10:05 | | | | | | PM PDT | | | | +-------+ + +---+---+ +---+---+ | | | +---+---+ + +-------+ +---------+---+---+ | insulin lispro (HUMALOG) | Given | 03/15/20 | 3 Units | | | | injection subcutaneous, WITH | | 14 9:02 | | | | | MEALS AND BEDTIME, First dose on | | PM PDT | | | | | 03/12/14 at 1845, Until | | | | | | | Discontinued | | | | | | + +-------+ +---------+---+---+ +-------+ +---------+---+---+ | Given | 03/15/20 | 2 Units | | | | | 14 3:37 | | | | | | PM PDT | | | | +-------+ +---------+---+---+ | Given | 03/15/20 | 2 Units | | | | | 14 8:27 | | | | | | AM PDT | | | | +-------+ +---------+---+---+ +---+---+ | | | +---+---+ + +---------+ + + +---+ | lactated ringers IV 10 mL/hr, | New Bag | 03/12/20 | 10 mL/hr | 10 mL/hr | | | intravenous, PROCEDURE | | 14 7:36 | | | | | CONTINUOUS, Starting Wed03/12/14 | | AM PDT | | | | | at 0700, Until Wed03/12/14 at | | | | | | | 1232 | | | | | | + +---------+ + + +---+ +---+---+ | | | +---+---+ + +---------+ +-------+-------+---+ | lactated ringers IV 150 mL/hr, | New Bag | 03/12/20 | 150 | 150 | | | intravenous, CONTINUOUS, | | 14 12:20 | mL/hr | mL/hr | | | Starting Wed03/12/14 at 1145, | | PM PDT | | | | | Until Wed03/16/14 at 1936 | | | | | | + +---------+ +-------+-------+---+ +---+---+ | | | +---+---+ + +-------+ +--------+---+---+ | levothyroxine tablet 25 mcg 25 | Given | 03/16/20 | 25 mcg | | | | mcg, oral, DAILY, First dose on | | 14 6:47 | | | | | 03/12/14 at 1315, Until | | AM PDT | | | | | Discontinued | | | | | | + +-------+ +--------+---+---+ +-------+ +--------+---+---+ | Given | 03/15/20 | 25 mcg | | | | | 14 6:50 | | | | | | AM PDT | | | | +-------+ +--------+---+---+ | Given | 03/14/20 | 25 mcg | | | | | 14 6:30 | | | | | | AM PDT | | | | +-------+ +--------+---+---+ +---+---+ | | | +---+---+ + + + +---------+---+---+ | lidocaine (LIDODERM) 5 %(700 | Applied | 03/15/20 | 3 | | | | mg/patch) patch 3 patch 3 patch, | Patch | 14 8:47 | patches | | | | transdermal, EVERY 24 HOURS, | | PM PDT | | | | | First dose on Wed03/13/14 at | | | | | | | 2000, Until Discontinued | | | | | | + + + +---------+---+---+ + + +---------+---+---+ | Applied Patch | 03/14/20 | 3 | | | | | 14 7:48 | patches | | | | | PM PDT | | | | + + +---------+---+---+ | Applied Patch | 03/13/20 | 3 | | | | | 14 10:05 | patches | | | | | PM PDT | | | | + + +---------+---+---+ +---+---+ | | | +---+---+ + +-------+ +-------+---+---+ | lisinopril (PRINIVIL) tablet 10 | Given | 03/16/20 | 10 mg | | | | mg 10 mg, oral, DAILY, First | | 14 8:52 | | | | | dose on Wed03/12/14 at 1300, | | AM PDT | | | | | Until Discontinued | | | | | | + +-------+ +-------+---+---+ +-------+ +-------+---+---+ | Given | 03/15/20 | 10 mg | | | | | 14 8:26 | | | | | | AM PDT | | | | +-------+ +-------+---+---+ | Given | 03/14/20 | 10 mg | | | | | 14 9:50 | | | | | | AM PDT | | | | +-------+ +-------+---+---+ +---+---+ | | | +---+---+ + +-------+ +-------+---+---+ | magnesium hydroxide (MILK OF | Given | 03/15/20 | 30 mL | | | | MAGNESIA) suspension 30 mL 30 | | 14 9:02 | | | | | mL, oral, DAILY NEEDED, | | PM PDT | | | | | Starting Wed03/15/14 at 5, | | | | | | | Until Wed03/16/14 at 1936, | | | | | | | constipation, dyspepsia | | | | | | + +-------+ +-------+---+---+ +---+---+ | | | +---+---+ + +-------+ +-------+---+---+ | morphine (MS IR) tablet 15-30 | Given | 03/16/20 | 30 mg | | | | mg 15-30 mg, oral, EVERY 3 HOURS | | 14 9:55 | | | | | NEEDED, Starting Wed03/12/14 | | AM PDT | | | | | at 1232, Until Wed03/16/14 at | | | | | | | 1936, moderate pain, severe pain | | | | | | + +-------+ +-------+---+---+ +-------+ +-------+---+---+ | Given | 03/16/20 | 15 mg | | | | | 14 6:47 | | | | | | AM PDT | | | | +-------+ +-------+---+---+ | Given | 03/16/20 | 15 mg | | | | | 14 3:29 | | | | | | AM PDT | | | | +-------+ +-------+---+---+ +---+---+ | | | +---+---+ + +---------+ +------+---+---+ | morphine injection 1-4 mg 1-4 | New Bag | 03/13/20 | 2 mg | | | | mg, intravenous, EVERY 2 HOURS | | 14 1:48 | | | | | NEEDED, Starting Wed03/12/14 at | | AM PDT | | | | | 1232, Until Wed03/16/14 at 1936, | | | | | | | severe pain | | | | | | + +---------+ +------+---+---+ +---------+ +------+---+---+ | New Bag | 03/12/20 | 2 mg | | | | | 14 9:21 | | | | | | PM PDT | | | | +---------+ +------+---+---+ | New Bag | 03/12/20 | 2 mg | | | | | 14 5:13 | | | | | | PM PDT | | | | +---------+ +------+---+---+ +---+---+ | | | +---+---+ + +-------+ +------+---+---+ | polyethylene glycol (MIRALAX) | Given | 03/15/20 | 17 g | | | | powder 17 g 17 g, oral, DAILY | | 14 8:26 | | | | | NEEDED, Starting Wed03/12/14 at | | AM PDT | | | | | 1232, Until Wed03/16/14 at 1936, | | | | | | | constipation, No BM in past 3 | | | | | | | days | | | | | | + +-------+ +------+---+---+ +-------+ +------+---+---+ | Given | 03/14/20 | 17 g | | | | | 14 9:57 | | | | | | AM PDT | | | | +-------+ +------+---+---+ +---+---+ | | | +---+---+ + +-------+ + +---+---+ | senna-docusate (SENOKOT S) | Given | 03/16/20 | 1 tablet | | | | 8.6-50 mg 1 tablet 1 tablet, | | 14 8:52 | | | | | oral, TWICE DAILY, First dose on | | AM PDT | | | | | Wed03/12/14 at 1300, Until | | | | | | | Discontinued | | | | | | + +-------+ + +---+---+ +-------+ + +---+---+ | Given | 03/15/20 | 1 tablet | | | | | 14 8:49 | | | | | | PM PDT | | | | +-------+ + +---+---+ | Given | 03/15/20 | 1 tablet | | | | | 14 8:26 | | | | | | AM PDT | | | | +-------+ + +---+---+ +---+---+ | | | +---+---+ + +-------+ +------+---+---+ | warfarin (COUMADIN) tablet 6 mg | Given | 03/12/20 | 6 mg | | | | 6 mg, oral, EVERY EVENING, | | 14 9:18 | | | | | First dose (after last reorder) | | PM PDT | | | | | on Wed03/12/14 at 2100, Until | | | | | | | Discontinued | | | | | | + +-------+ +------+---+---+ +---+---+ | | | +---+---+ + +-------+ +------+---+---+ | warfarin (COUMADIN) tablet 6 mg | Given | 03/15/20 | 6 mg | | | | 6 mg, oral, EVERY EVENING, | | 14 9:02 | | | | | First dose (after last reorder) | | PM PDT | | | | | on Wed03/15/14 at 2099, Until | | | | | | | Discontinued | | | | | | + +-------+ +------+---+---+ +---+---+ | | | +---+---+ + +-------+ +------+---+---+ | warfarin (COUMADIN) tablet 9 mg | Given | 03/14/20 | 9 mg | | | | 9 mg, oral, EVERY EVENING, 2 | | 14 9:49 | | | | | doses, First dose (after last | | PM PDT | | | | | reorder) on Wed03/13/14 at 2100, | | | | | | | Last dose on Wed03/14/14 at 2099 | | | | | | + +-------+ +------+---+---+ +-------+ +------+---+---+ | Given | 03/13/20 | 9 mg | | | | | 14 10:05 | | | | | | PM PDT | | | | +-------+ +------+---+---+ +---+---+ | | | +---+---+ documented in this encounter"
--- OUTSIDE RECORDS SUMMARY | ~2019-08-03 | XMS | Encounter Summary ---
Demographics + + + | Address | [address] | | | [place] [address] | + + + | Home Phone [...] Team Providers + +------+ + | Care Supervisor Pumping Name | Role | Phone | + +------+ + | Gracie Mariano MD | PCP | | + +------+ + Encounter Details +--------+ + + + + | Date | Type | Department | Care Team | Description | +--------+ + + + + | 03/02/ | Anesthesia | 6A Intra Op 3181 | Anabel Schneider | | | 2012 | Event | [address] | [address] | | | | | [facility] | [address] [facility] | | | | | [facility] | [place] [address] | | | | | Desk Located on the | | | | | | 9th floor | | | | | | [place], [place] | | | | | | [address] | | | +--------+ + + + + Anesthesia Record + + + + + | Procedure Name | Responsible | Anesthesia Start | Anesthesia Stop Time | | | Anesthesiologist | Time | | + + + + + | TOTAL HIP | | | | | ARTHROPLASTY on | | | | | 03/29/2013 by Jorge | | | | | W MD Denise at [facility] | | | | | 6A (canceled) [...]
--- OUTSIDE RECORDS SUMMARY | ~2019-08-03 | XMS | Encounter Summary ---
Demographics + + + | Address | [address] | | | [place] [address] | + + + | Home Phone [...] Author + + + | Author | [facility] | + + + | Organization | [facility] | + + + | [...] Team Providers + +------+ + | Care Ux Design Lead Name | Role | Phone | + [...] | Rheumatology | Diagnoses | Purnima | [facility] | | | | | Ankylosing | MD Harinder | [address] | | | | | spondylitis | [address] | [place] | | | | | ([facility]) | [address] | Loop | | | | | Procedures | [facility], | Mailcode: | | | | | CONSULT TO | [place] [id number] | OP09 | | | | | RHEUMATOLOGY | Phone: | Physician's | | | | | | [phone] | [place], [facility] | | | | | | Fax: | Floor | | | | | | [phone] | [place], [place] | | | | | | | [address] | | | | | | | Phone: | | | | | | | [phone] | | | | | | | Fax: | | | | | | | [phone] | +--------+--------+ + + + + Encounter Details +--------+---------+ + + + | Date | Type | Department | Care Team | Description | +--------+---------+ + + + | 05/16/ | Office | Rheumatology at | Yulisa Hearn, | (ankylosing | | 2012 | Visit | Physicians [place] | [address] [facility] | spondylitis) ([facility]) | | | | [address] | [address] | (Primary Dx) | | | | Loop Mailcode: PV35 | [place], [place] | | | | | Physician's | [address] | | | | | [place], | [phone] | | | | | [place] [address] | | | | | | [phone] | | | +--------+---------+ + + + [...] care. RAY ARREDONDO MD (ATUL) RHEUMATOLOGY FACULTY [facility] [place] [address] Yulisa Winchester MD - 05/16/2013 10:25 AM PDT RHEUMATOLOGY NEW PATIENT CONSULT This consultation was requested by: Harinder Felton MD [address] [place] [address] fax: [phone] CC: No chief complaint on file. HPI: This is a 62 y.o. male, here for consultation from Hairnder Felton MD regarding diagnos is, and possible change in therapy for ankilosing spondylitis. Mr Cisneros is a 62 yo man who holds a long standing diagnosis of . He was di agnosed in late ' in [place] by his PCP, but was never referred [...] to patient queationnaire scanned in [facility] PMH: Past Medical History Diagnosis Date Diabetes [...] Wt 113.853 kg (251 lb) | B FL 39.91 kg/(m^2) Pain Score: 6 Gen: Well [...] bilateral hip arthropathy and probable erosions EXAM: MD PELVIS 1 VIEW, 05/10/12 COMPARISON: 12/15/2010 HISTORY: [...] and plan YULISA HEARN MD RHEUMATOLOGY FELLOWS [facility] Mailcode: Pv35 [place] [address] documented in this en counter Plan of Treatment Not on filedocumented as of this encounter Procedures + +--------+ + + + | Procedure Name | Priori | Date/Time | Associated Diagnosis | Comments | | | ty | | | | + +--------+ + + + | MD TB INTRADERMAL | Routin | 05/16/2013 | (ankylosing | | | TEST | e | 11:12 AM | spondylitis) ([facility]) | | | | | PDT [...] + | [facility] - | [address] | [place] [address] | | | [place] | | | [...] + | [facility] - | [address] | [place] [address] | | | [place] | | | [...] + | [facility] - | [address] | [place] [address] | | | [place] | | | | + + + [...] | + + + + + | [facility] | [address] | [place] [address] | | | [address] | PARK [...] + | [facility] - | [address] | [place] [address] | | | [place] | | | [...] | | + +---------+ + + | [facility] DEPARTMENT OF | | | | | RADIOLOGY | | | | + +---------+ + + documented in this encounter Visit Diagnoses + + | Diagnosis | + + | (ankylosing spondylitis) (HCC) - Primary Ankylosing spondylitis | + + documented in this encounter
--- OUTSIDE RECORDS SUMMARY | ~2019-08-03 | XMS | Encounter Summary ---
Demographics + + + | Address | [address] | | | [place] [address] | + + + | Home Phone | | + + + | Preferred Language | Unknown | + + + | Marital Status | Single | + + + | Episcopalian Affiliation | BAP | + + + [...] Team Providers + +------+ + | Care Passenger Car Upholsterer Apprentice Name | Role | Phone | + +------+ + | Garcie Mariano MD | PCP | | + [...] Visit | Medicine Clinic at | R, LENS GRINDER [address] | (Primary Dx); | | | | [facility] 4th Floor [address] | 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 Surgery Check in Locations Admitting [facility], ninth floor [facility] Surgery Check in Time: The Preoperative [...] it is after office hours, call the [facility] outboard system operator at [phone] and ask them to page him or h er. Preparing For Your Surgery Video -- 7 minutes of instructions! Access the [facility] website [email or web address] --> POPULAR RESOURCES --> Patient Guide --> [...] SUSHIL. I last saw this patient in [facility] on 06/29/2013 for pre-op eval for this [...] further investigation and manageme nt. A. Acute LA within 7 days: no B. Unstable angina/Recent LA (7- 30 days): no C. Decompensated CHF: [...] yes Rate of cardiac , non fatal LA, non fatal cardiac arrest (RCRI) 0 risk factors - 0.4% 1 risk factors - 1%, 2 risk factors - 7%, 3 or >risk factors - 11% (may benefit from perioperative beta blockers) Risk Factor Recommendations: 1-2 risk factors- proceed with planned surgery with HR control or consider noninvasive testing if it will exchange operator Surgery Risk: Intermediate Patient-related risk: Estimated ASA [...] to this patient's care. ANGELINE ARAMBULA NP [facility] AT [facility] 4TH FLOOR [address] [facility] [address] I counseled the patient regarding perioperative [...] + +--------+ + + | COMMUNICATION TO [facility] | Procedures | Routin | Preop examination [...] | + +--------+ + + + | OR COLLECTION VENOUS | Routin | 02/28/2014 | [...] [facility] | [address] | [place] [address] | | | OF CARE TESTS | [...] [facility] | [address] | [place] [address] | | | SERVICES, CORE | PARK [...] | + + + + + | [facility] | [address] | [place] [address] | | | SERVICES, | [address] [...] [facility] | [address] | [place] [address] | | | SERVICES, | [address] [...] + + | Test now performed at [facility]. New method effective 01/24/14. | [facility] | | | LABORATORY | | | SERVICES, CORE | + + + + + + + + | Performing | Address | City/State/Zipcode | Phone Number | | Organization | | | | + + + + + | [facility] | [address] | [place] [address] | | | [address] | [address] [...] | + + + + + | [facility] - | [address] | [place] [address] | | | [place] | | | [...] | | | LABORATORY | | | [place] | | | SERVICES, | | | [...] LABORATORY | [address] | [place] [address] | | | SERVICES, CORE | PARK [...] | + + + + + | [employer] | [address] | [place] [address] | | | SERVICES, CORE | [address] [...] CRABTREE | | | | | | (4304) on 03/01/2014 | | | | | | 8:03:15 PM | | | | + + + + + + + + | Specimen | + + | | + + + + + | Narrative | Performed At | + + + | Please click | [facility] | | on view image for the detailed interpretation from [employer] results. | CARDIOLOGY | + + + + + | Procedure Note | + + | Interface, Cardiology Results - 03/01/2014 8:04 PM PDT Please click on view image | | for the detailed interpretation from [employer] results. | + + + + + + + | Performing | Address | City/State/Zipcode | Phone Number | | Organization | | | | + + + + + | [facility] | [address] | [place], [place] | | | CARDIOLOGY | [address] | [address] | | + + + + + [...]
--- OUTSIDE RECORDS SUMMARY | ~2019-08-03 | XMS | Encounter Summary ---
Demographics + + + | Address | [address] | | | [place] [address] | + + + | Home Phone | | + + + | Preferred Language | Unknown | + + + | Marital Status | Single | + + + | Orthodoxy Affiliation | 1041 | + + + | Race | Unknown | + + + | Ethnic Group | Unknown | + + + Author + + + | Author | [facility] | | | and Zeke[place] | + + + | Organization | [facility] | | [...] Team Providers + +------+ + | Care Cuff Turner Name | Role | Phone | + [...] | | | | [place] | [phone] | | | | | [address] | (Fax) | | | | | [phone] | | | +--------+ + + + [...] | | | | | [place] [address] | | | | | | [phone] | | | | | | | | +--------+---------+ + + + | 11/26/ | Office | Cardiology | Sissy Noyola | | | 2020 | Visit | | MD Sushil Damon | | | | | | [place] | | | | | | [address] | | | | | | | | +--------+---------+ + + + documented as of this encounter Visit Diagnoses Not on filedocumented in this encounter"
--- OUTSIDE RECORDS SUMMARY | ~2019-08-03 | XMS | Encounter Summary ---
Demographics + + + | Address | [address] | | | [place] [address] | + + + | Home Phone [...] Providers + +------+ + | Care Supervisor Hide House Name | Role | Phone | + +------+ + | Kita Schafer MD | PCP | | + +------+ + Encounter Details +--------+ + + + + | Date | Type | Department | Care Team | Description | +--------+ + + + + | 03/11/ | Documentati | Hematology/Medical | Moisés, | | | 2010 | on | Oncology at [facility] | MD Jorge [address] | | | | | [address] | [address] [place], | | | | | Mailcode: CH7M | [place] [address] | | | | | [facility] | [phone] | | | | | and Healing, | | | | | | [facility] | | | | | | [place], [place] | | | | | | [address] | | | | | | [phone] | | | +--------+ + + + [...]
--- OUTSIDE RECORDS SUMMARY | ~2019-08-03 | XMS | Encounter Summary ---
Demographics + + + | Address | [address] | | | [place] [address] | + + + | Home Phone [...] Team Providers + +------+ + | Care Fringe Maker Name | Role | Phone | [...] + + | 05/09/ | Hospital | [facility] [address] | Rosa M Smart MD | | | 2011 - | Encounter | [place] [address] | [address] [facility] | | | | | [place], | [facility] | | | 05/12/ | | [place] [address] | [place], [place] | | | 2011 | | [phone] | [address] | | | | | | [phone] | | | | | | | [...] they suspect your wound is infected. Call [facility] Orthopedics first at [phone]. Diet Regular Regular diet- There are no [...] 2 weeks (or as previously scheduled). Call [phone] to confirm or schedule this appointment. PCP: As needed for any medical concerns not related to your surgery. Future Appointments Date & Time Provider Department Dept Phone Center 05/10/2012 2:15 PM Antony Patterson MD [facility] Radiation Medicine [phone] Rad Onc 05/19/2012 8:00 AM Maldonado Ewing PA-C [facility] Orthopaedics & Rehabilitation [phone] Amy thornton Deep Vein Thrombosis (Leg Blood Clot) Prevention DVT prophylaxis: You are at increased risk of forming a blood clot following your joint replacement. - We have recommended that you take Coumadin following your surgery to decrease this risk. - See discharge prescriptions for administration instructions. - Call Orthopedic Clinic at [phone] if any persistent, localized swelling that does [...] and ask for the orthopaedic surgery resident research consultant. Additional Post-Op Instructions / What to Expect [...] feel that you will need more, call [phone] during business hours in order to get a new prescription. Please allow 48 hours for ref ills to be processed. - Schedule II narcotics can NOT be called in to a pharmacy. Please arrange for someone to p ick up your prescription or allow additional time for our clinic to mail you requested meliza manley - On-call (after hours) MDs are not [...] Cox NP - 05/12/2012 1:26 PM PDTOrtho SCOUT SNIPER Progress Note 05/12/2012 1:26 PM Author BLANCA [...] to dc to SNF BLANCA COX NP [facility] [address] [facility] [address] Gifty Gage Md - 05/12/2012 6:23 AM [...] SNF when bed available postoperative day 2-3. osa M Smart MD - 05/11/2012 5:57 AM PDT Ortho [...] Discharge likely postoperative day 3. Will ask outsole caser to assess for SNF place ent. I performed a history and physical examination of the patient and discussed his management with the resident. I reviewed the resident s note and agree with the documented findings and plan of care. ROSA M SMART MD [facility] [address] [place] [facility] [address] uerlinda, Rosa M Paige MD - 0 05/10/2012 [...] plan of care. ROSA M SMART MD [facility] [address] [facility] [address] osa M Smart MD - 0 05/09/2012 6:14 PM PDT [...] plan of care. ROSA M SMART MD [facility] [address] [facility] [address] documented in this enc ounter Plan of [...] + | [facility] | [address] | [place], [place] | | | JOI POINT OF CARE | [facility] | [address] | | | TESTS | | | [...] [facility] | [address] | [place], [place] | | | JOI POINT OF CARE | [address] | [address] | | | TESTS | | | [...] | + + + + + | [facility] DEPARTMENT | [address] | [place] [address] | | | PATHOLOGY | [address] [...] (H) | 60 - 99 mg/dL | [facility] - | | | GLUCOSE, | [...] [place] | [address] | [place], [place] | | | BABAR TAMEZ OF CARE | [address] | [address] | | | TESTS | | | [...] [place] | [address] | [place], [place] | | | BABAR TAMEZ OF CARE | [address] | [address] | | | TESTS | | | [...] [facility] | [address] | [place], [place] | | | BABAR [place]AME[place] OF CARE | [address] | [address] | | | TESTS | | | [...] [place] | [address] | [place], [place] | | | BABAR TAME[place] OF CARE | [address] | [address] | | | TESTS | | | [...] DEPARTMENT OF | [address] | [place] [address] | | | PATHOLOGY | [address] [...] | + + + + + | [facility] DEPARTMENT | [address] | [place] [address] | | | PATHOLOGY | [address] [...] (H) | 60 - 99 mg/dL | [facility] - | | | GLUCOSE, | [...] [place] | [address] | [place], [place] | | | BABAR [place]AME[place] OF CARE | [address] | [address] | | | TESTS | | | [...] [place] | [address] | [place], [place] | | | BABAR TAME[place] OF TIMUR | [facility] | [address] | | | TESTS | | | [...] [place]LL[place] | [address] | [place], [place] | | | [facility] | [address] | [address] | | | TESTS | | | | + + + + + OPERATION RECORD (05/10/2012 11:16 AM PDT) + + | Transcriptions | + + | Rosa M Smart MD - 05/10/2012 7:13 AM PDT [id number] | | [id number] DENISE MANTILLA | | [id number] Date: 05/09/2012 Attending Surgeon: Rosa M | | Melinda Smart M.D. Interactive Media Project Manager(s): Maldonado Ewing PA-C Please note, no | [...] | near 40. The [facility] due to the | | complexityof his situation. Overall surgical time was close to 3 times what | | wouldotherwise be expected for this type of procedure. There would also behigher | | anticipated rates of associated morbidity. For all of thesereasons, the complexity | | modifier is warranted. Rosa M Smart M.D.[facility] / [id number] / [id number] / [id number] /D: | | 05/09/2012T: 05/09/2012 | |ambulatory [...] | |traveled [place] the state to the [place] setting due to the complexity | |of [...] |Rosa M Smart M.D. | |[facility] / HS | |[id number] / [id number] / [id number] / | | | | | | [...] [place] | [address] | [place], [place] | | | JOI POINT OF CARE | [address] | [address] | | | TESTS | | | | + + + + + INR (05/10/2012 5:07 AM PDT) + + + + + + | Component | Value | Ref Range | Performed | Pathologist | | | | | At | Signature | + + + + + + | INR | 1.30 (H)Comment: | 0.90 - 1.20 INR | [facility] | | | | INR Therapeutic ranges [...] | + + + + + | [facility] DEPARTMENT OF | [address] | [place] [address] | | | PATHOLOGY | [address] [...] | + + + + + | [facility] DEPARTMENT OF | [address] | [place] [address] | | | PATHOLOGY | [address] [...] DEPARTMENT OF | [address] | [place] [address] | | | PATHOLOGY | [address] [...] [place] | [address] | [place], [place] | | | [facility] [place] [facility] | [address] | [address] | | | TESTS | | | | + + + + + X-RAY PORTABLE PELVIS 1 VIEW (05/09/2012 5:08 PM PDT) + + + + + + | Component | Value | Ref Range | Performed | Pathologist | | | | | At | Signature | + + + + + + | X-RAY | EXAM: IN PELVIS 1 VIEW, | | | | [...] [place] | [address] | [place], [place] | | | JOI POINT OF CARE | [address] | [address] | | | TESTS | | | [...] | | | | | | Until [facility] 05/12/12 at 2206, mild | | | [...] PDT | | | | | Starting Wed05/09/12 at 1308, | | | | | [...] | | | | | Until Nusrat 9/20/12 at 2206 | | | | | [...] | | mcg, oral, DAILY, First dose | | 12 9:26 | | | | | (after last reorder) on Wed | | AM PDT | | | | | 05/10/12 at 0700, Until | | | | | | [...] | | | | First dose on e 05/10/12 at | | AM PDT | [...] + +-------+ + +---+---+ | senna-docusate (aka SENOKOT S) | Given | 05/12/20 | 1 [...] | | | | EVENING, First dose (after last | | PM PDT | | | | | modification) on Wed05/11/12 at | | | | | | [...]
--- OUTSIDE RECORDS SUMMARY | ~2019-08-03 | XMS | Encounter Summary ---
Demographics + + + | Address | [address] | | | [place] [address] | + + + | Home Phone | | + + + | Preferred Language | Unknown | + + + | Marital Status | Single | + + + | Adventist Affiliation | 1041 | + + + | Race | Unknown | + + + | Ethnic Group | Unknown | + + + Author + + + | Author | [facility] | | | and [place] | + + + | Organization | [facility] | | | and [place] | [...] Team Providers + +------+ + | Care Aircraft Tool Maker Name | Role | Phone | + +------+ + PCP | Unavailable | + +------+ + Encounter Details +--------+ + + + + | Date | Type | Department | Care Team | Description | +--------+ + + + + | 02/26/ | Hospital | [facility] | Conversion | S/P cervical spinal | | 2017 | Encounter | [facility] XRAY | Transaction, | fusion | | | | [address] | Provider Unknown | | | | | [place], [place] | [phone] | | | | | [address] | | | | | | [phone] | Lehardi, Kairul S, | | | | | | EDGER HAND [address] [place] [address] | | | | | | [address] [place], | | | | | | [place] [address] | | | | | | [phone] | | | | | | | [...] mg by mouth | | 0 | 20 | | | hydroCHLOROthiazide | daily. Indications: [...] | 0 | /20 | | | 20 mg/mL | every [...] [address] | | | | | | [address] | | | | | | [address] [address] [address] | | | | | | [phone] | | | | | | | | +--------+---------+ + + + | 11/26/ | Office | Cardiology | Sissy Noyola | | | 2019 | Visit | | MD Marisol [address] | | | | | | [place] | | | | | | [address] | | | | | | | | +--------+---------+ + + + documented as of this encounter Procedures + +--------+ + + + | Procedure Name | Priori | Date/Time | Associated Diagnosis | Comments | | | ty | | | | + +--------+ + + + | XR CERVICAL SPINE 2 | Routin | 05/28/2017 | | Results for this | | OR 3 VIEWS | e | 10:33 AM | | procedure are in the | | | | PDT | | results section. | + +--------+ + + + | XR CERVICAL SPINE 2 | Routin | 02/26/2017 | | Results for this | | OR 3 VIEWS | e | 9:27 AM | | procedure are in the | | | | PDT | | results section. | + +--------+ + + + documented in this encounter Results XR Cervical Spine 2 or 3 Views (05/28/2017 10:33 AM PDT) + + | Specimen | + + | | + + + + + | Impressions | Performed At | + + + | FINDINGS/IMPRESSION: 1. Status post spinal fusion from C3 through | | | T2 with posterior decompression. No hardware loosening or hardware | | | fracture. 2. Bridging syndesmophytes with bony bridging across | | | facet joints. Comment for history of ankylosing spondylitis. 3. No | | | prevertebral soft tissue swelling. No acute fracture. 4. | | | Osteopenia. 5. Small calcification in submandibular soft tissues | | | measuring approximately 9 x 5 mm, probably sialolith, similar to prior | | | radiographs. Electronically signed by Cierra López on | | | 05/28/2017 11:10 AM | | + + + + + + | Narrative | Performed At | + + + | [facility] XR CERVICAL SPINE LIMITED 2-3 VIEW 05/28/2017 10:33 | | | AM HISTORY: 66 years. Male. Status post spinal fusion | | | TECHNIQUE: XR CERVICAL SPINE LIMITED 2-3 VIEW. 2 view(s) obtained. | | | COMPARISON: 02/26/2017 | | + + + + + | Procedure Note | + + | Vamsi Guillaume Conversion - 04/05/2019 11:44 PM PDT [facility] L C[facility]NER[facility]XR CERVICAL SPINE LIMITED | | 2-3 VIEW05/28/2017 10:33 AM HISTORY:66 years. Male. Status post spinal fusion | | TECHNIQUE:XR CERVICAL SPINE LIMITED 2-3 VIEW. 2 view(s) obtained. COMPARISON:02/26/2017 | | IMPRESSION: FINDINGS/IMPRESSION:1. Status post spinal fusion from C3 through T2 with | | posterior decompression. No hardware loosening or hardware fracture.2. Bridging | | syndesmophytes with bony bridging across facet joints. Comment for history of ankylosing | | spondylitis.3. No prevertebral soft tissue swelling. No acute fracture.4. | | Osteopenia.5. Small calcification in submandibular soft tissues measuring approximately | | 9 x 5 mm, probably sialolith, similar to prior radiographs. | |COMPARISON: | |02/26/2017 | | | |IMPRESSION: | |FINDINGS/IMPRESSION: | |1. Status post spinal fusion from C3 through T2 with posterior decompression. No hardware loosening or hardware fracture. | |2. Bridging syndesmophytes with bony bridging across facet joints. Comment for history of ankylosing spondylitis. | |3. No prevertebral soft tissue swelling. No acute fracture. | |4. Osteopenia. | |5. Small calcification in submandibular soft tissues measuring approximately 9 x 5 mm, pro bably sialolith, similar to prior radiographs. | | | | | + + XR Cervical Spine 2 or 3 Views (02/26/2017 9:27 AM PDT) + + | Specimen | + + | | + + + + + | Impressions | Performed At | + + + | 1. Stable posterior instrumentation spanning C3-T2. 2. Complete | | | osseous fusion of the entire cervical spine vertebral bodies and | | | facets noted. 3. 10 mm sialolith suspected in the submandibular | | | region. | | | 9:38 AM | | + + + + + + | Narrative | Performed At | + + + | [facility] XR CERVICAL SPINE LIMITED 2-3 VIEW 02/26/2017 9:27 AM | | | HISTORY: 66 years. Male. Status post cervical spinal fusion. | | | TECHNIQUE: XR CERVICAL SPINE LIMITED 2-3 VIEW. 3 view(s) | | | obtained. COMPARISON: 02/01/2017 FINDINGS: The cervical | | | vertebrae are visualized from C1 through C7. Complete osseous fusion | | | of the vertebral bodies and facets noted from C1 through T1. | | | Partial removal of the spinous processes is seen at C4-C7. | | | Posterior instrumentation is spanning C3-T2. The lateral mass | | | screws, transpedicular screws and paraspinal rods are in satisfactory | | | position with no loosening or breakage noted. No fractures through | | | the fused areas are noted. The visualized portions of the mandible | | | and calvarium are normal. No widening of the prevertebral soft | | | tissue space is seen. The airway is patent. The visualized | | | portions of the lung apices are normal. A 10 mm ovoid calcification | | | is seen in the submandibular region and the anterior soft tissues of | | | the neck suggesting a sialolith. | | + + + + + | Procedure Note | + + | Markell, Rad Conversion - 04/05/2019 11:44 PM PDT [facility]ORGE L MONTANO CERVICAL SPINE LIMITED | | 2-3 VIEW02/26/2017 9:27 AM HISTORY:66 years. Male. Status post cervical spinal fusion. | | TECHNIQUE:XR CERVICAL SPINE LIMITED 2-3 VIEW. 3 view(s) obtained. COMPARISON:02/01/2017 | | FINDINGS:The cervical vertebrae are visualized from C1 through C7. Complete osseous | | fusion of the vertebral bodies and facets noted from C1 through T1. Partial removal of | | the spinous processes is seen at C4-C7. Posterior instrumentation is spanning C3-T2. | | The lateral mass screws, transpedicular screws and paraspinal rods are in satisfactory | | position with no loosening or breakage noted. No fractures through the fused areas are | | noted. The visualized portions of the mandible and calvarium are normal. No widening | | of the prevertebral soft tissue space is seen. The airway is patent. The visualized | | portions of the lung apices are normal. A 10 mm ovoid calcification is seen in the | | submandibular region and the anterior soft tissues of the neck suggesting a sialolith. | | IMPRESSION: 1. Stable posterior instrumentation spanning C3-T2.2. Complete osseous | | fusion of the entire cervical spine vertebral bodies and facets noted.3. 10 mm | | sialolith suspected in the submandibular region. | | lateral mass screws, transpedicular screws and paraspinal rods are in satisfactory positio n with no loosening or breakage noted. No fractures through the fused areas are noted. The visualized portions of the mandible and calvarium are normal. No | |widening of the prevertebral soft tissue space is seen. The airway is patent. The visuali zed portions of the lung apices are normal. A 10 mm ovoid calcification is seen in the subm andibular region and the anterior | |soft tissues of the neck suggesting a | | sialolith. | | | |IMPRESSION: | |1. Stable posterior instrumentation spanning C3-T2. | |2. Complete osseous fusion of the entire cervical spine vertebral bodies and facets noted. | |3. 10 mm sialolith suspected in the submandibular region. | | | | | + + documented in this encounter Visit Diagnoses + + | Diagnosis | + + | S/P cervical spinal fusion Arthrodesis status | + + documented in this encounter"
--- OUTSIDE RECORDS SUMMARY | ~2019-08-03 | XMS | Encounter Summary ---
Demographics + + + | Address | [address] | | | [place] [address] | + + + | Home Phone [...] Team Providers + +------+ + | Care Prop Drawer Name | Role | Phone | + +------+ + | Scooby Mcclure MD | PCP | | + +------+ + Encounter Details +--------+ + + + + | Date | Type | Department | Care Team | Description | +--------+ + + + + | 02/15/ | Procedure | Diagnostic Imaging | | | | 2018 | Pass | Services at [facility] | | | | | | [address] | | | | | | [place] Mailcode: | | | | | | [address] [facility] | | | | | | [place], [place] | | | | | | [address] | | | | | | [phone] | | | +--------+ + + + [...]
--- OUTSIDE RECORDS SUMMARY | ~2019-08-03 | XMS | Encounter Summary ---
Demographics + + + | Address | [address] | | | [place] [address] | + + + | Home Phone [...] Providers + +------+ + | Care Director Energy Name | Role | Phone | + +------+ + | Gracie Mariano MD | PCP | | + +------+ + Encounter Details +--------+ + + + + | Date | Type | Department | Care Team | Description | +--------+ + + + + | 02/08/ | Document-Sc | Preoperative | Unknown . | | | 2013 | anned | Medicine Clinic at | | | | | | [facility] 4th Floor [address] | | | | | | [address] | | | | | | Mailcode: [id number] | | | | | | [facility] | | | | | | and [place]ack, | | | | | | [facility] 1,4th Floor | | | | | | [place], [place] | | | | | | [address] | | | | | | [phone] | | | +--------+ + + + [...]
--- OUTSIDE RECORDS SUMMARY | ~2019-08-03 | XMS | Encounter Summary ---
Demographics + + + | Address | [address] | | | [place] [address] | + + + | Home Phone | | + + + | Preferred Language | Unknown | + + + | Marital Status | Single | + + + | Orthodoxy Affiliation | 1041 | + + + | Race | Unknown | + + + | Ethnic Group | Unknown | + + + Author + + + | Author | [facility] | | | and [place] | + + + | Organization | [facility] | | | and [place] [...] Providers + +------+ + | Care Bundle Clerk Name | Role | Phone | + +------+ + | Scooby Mcclure DO | PCP | | + +------+ + Encounter Details +--------+ + + + + | Date | Type | Department | Care Team | Description | +--------+ + + + + | 02/20/ | Orders Only | [facility] | Conversion | | | 2019 | | CONVERSION DEP [address] | Transaction, | | | | | [address] | Provider Unknown | | | | | [place] | [phone] | | | | | [address] | (Fax) | | | | | [phone] | | | +--------+ + + + [...] | | | | | [address] [address] | | | | | | [phone] | | | | | | | | +--------+---------+ + + + | 11/26/ | Office | Cardiology | Sissy Noyola | | | 2020 | Visit | | MD Sushil Damon | | | | | | [place] | | | | | | [address] | | | | | | | | +--------+---------+ + + + documented as of this encounter Visit Diagnoses Not on filedocumented in this encounter"
--- OUTSIDE RECORDS SUMMARY | ~2019-08-03 | XMS | Encounter Summary ---
Demographics + + + | Address | [address] | | | [place] [address] | + + + | Home Phone [...] + + + | Author | [facility] | + + + | Organization | [facility] | + + + | [...] Team Providers + +------+ + | Care Cable Assembler And Swager Name | Role | Phone | + [...] | | | | Mailcode: [id number] | [place], [place] | | | | | [facility] | [address] | | | | | [facility] [place] | [phone] | | | | | [address] | | | | | | [phone] | | | +--------+ + + + [...]
--- OUTSIDE RECORDS SUMMARY | ~2019-08-03 | XMS | Encounter Summary ---
Demographics + + + | Address | [address] | | | [place] [address] | + + + | Home Phone | | + + + | Preferred Language | Unknown | + + + | Marital Status | Single | + + + | Alevism Affiliation | 1041 | + + + | Race | Unknown | + + + | Ethnic Group | Unknown | + + + Author + + + | Author | [facility] | | | and [place] | + + + | Organization | [facility] | | | and [...] Team Providers + +------+ + | Care Air Export Logistics Manager Name | Role | Phone | + +------+ + PCP | Unavailable | + +------+ + Encounter Details +--------+ + + + + | Date | Type | Department | Care Team | Description | +--------+ + + + + | 05/28/ | Hospital | [facility] | Conversion | | | 2016 | Encounter | [facility] | Transaction, | | | | | [address] | Provider Unknown | | | | | [address] [place], [place] | [phone] | | | | | [address] | | | | | | [phone] | Leonardo Werner S, | | | | | | ROBOTIC WELD TECHNICIAN [address] [place] [address] | | | | | | [address] [place] [place], | | | | | | [place] [address] | | | | | | [phone] | | | | | | | [...] | | | | | [address] [address] [address] | | | | | | [phone] | | | | | | | | +--------+---------+ + + + | 11/26/ | Office | Cardiology | Sissy Noyola | | | 2019 | Visit | | MD [address]ushil Damon | | | | | | [place] | | | | | | [address] | | | | | | | | +--------+---------+ + + + documented as of this encounter Visit Diagnoses Not on filedocumented in this encounter"
--- OUTSIDE RECORDS SUMMARY | ~2019-08-03 | XMS | Encounter Summary ---
Demographics + + + | Address | [address] | | | [place] [address] | + + + | Home Phone [...] Author + + + | Author | [facility] | + + + | Organization | [facility] | + + + | Address [...] Team Providers + +------+ + | Care Insecticide Supervisor Name | Role | Phone | [...] [address] | | | | | | [facility] | [address] | | | | | | [address] | [address] [place], | | | | | | [address] | [place] | | | | | | [address] | [address] | | | | | | [place], | Phone: | | | | | | [place] [address] | [phone] | | | | | | Phone: | Fax: | | | | | | [phone] | [phone] | | | | | | Fax: | | | | | | | [phone] | | +--------+--------+ + + + + [...] | | | | Mailcode: [id number] | [place], [place] | | | | | [facility] | [address] | | | | | [place], [place] | [phone] | | | | | [address] | | | | | | [phone] | | | +--------+---------+ + + + [...] contacted to schedule. ROSA M SMART MD [facility] [address] [place] [address] Mailcode: [id number] [facility] [address] Raghav Alvarenga Md - 05/23/2009 [...]
--- OUTSIDE RECORDS SUMMARY | ~2019-08-03 | XMS | Encounter Summary ---
Demographics + + + | Address | [address] | | | [place] [address] | + + + | Home Phone | | + + + | Preferred Language | Unknown | + + + | Marital Status | Single | + + + | Faith Affiliation | BAP | + + + | Race | or | + + + | Ethnic Group | Not or | + + + Author + + + | Author | [facility] | + + + | Organization | [facility] | + + + | [...] Providers + +------+ + | Care Pattern Perforating Machine Operator Name | Role | Phone [...] + + | 06/29/ | Office | Orthopaedics at | Henrietta Ayl, | Preoperative | | 2012 | Visit | [facility] [address] | clearance (Primary | | | | [address] | | Dx) | | | | Mailcode: [id number] | | | | | | [facility] | | | | | | [place], [place] | | | | | | [address] | | | | | | [phone] | | | +--------+---------+ + + + [...] + + + | Blood Pressure | 137/66 | 06/29/2013 11:03 AM | | | | | PST | | + + + + + | Pulse | 82 | 06/29/2013 11:03 AM | | | | | PST [...] Weight | 113.9 kg (251 lb) | 06/29/2013 11:03 AM | | | | | PST | | + + + + + | Height | 167.6 cm (5' 6") | 06/29/2013 11:03 AM | | | | | PST | | + + + + + | Body Mass Index | 40.51 | 06/29/2013 11:03 AM | | | | | PST | | + + + + + documented in this encounter Progress Notes Page, Henrietta Lujan PA-C - 06/29/2013 11:18 AM PSTFormatting of this note might be different fr om the original. SUBJECTIVE: Jorge L Cisneros is here today for pre-operative evaluation for complex R SUSHIL on 07/12. He has been taking narcotics preoperatively (60mg morphine daily). Pertinent medical history includes numerous comorbidities: HTN, hx DVT, anti-phospholipid a ntibody--chronic anticoag, ankylosing spondylitis, T2DM, hx CVA (complete medical history below) He denies FH of clotting disorders, HRT, history of CA, smoking. + anticoagulation (warfarin) and + hx of DVT He denies h/o blood clots, FH of clotting disorders, HRT, history of CA, smoking. +anticoag with warfarin Also denies recent fevers/illness, sleep apnea, previous complications with anesthesia, blo od transfusion within the last 90 days. JOINT PATIENT SCREENING: Is the patient a diabetic? yes oral meds. HgbA1c 8.3 --uncontrolled Body mass index is 40.53 kg/(m^2). Are there dental issues? no Is there peripheral edema? no Any open sores/wound or compromised skin integrity? no Is patient smoking? no Has patient had MRSA or VRE? no Does the patient have any allergies to antibiotics? yes PCNs, sulfa--rash Allergies Allergen Reactions Codeine Rash Penicillins Rash Sulfa (Sulfonamide Antibiotics) Trimethoprim Otherwise the orthopaedic history is unchanged from previous visit. The past medical histo ry, medications, allergies, surgical history, and social history were reviewed and updated i gurpreet Ragland. ROS: - Respiratory: No cough, dyspnea, wheezing. - Cardiovascular: No chest pain, palpitations, syncope - Gastrointestinal: No abdominal pain, nausea or vomiting - Genitourinary: No dysuria, hematuria - Skin: No recent rashes, sores, ulcers, wounds or skin changes - Heme: No abnormal bruising, abnormal bleeding, blood clots - ID: No fevers, persistent infections, recent antibiotic usage OBJECTIVE: - Last Vitals: BP 137/66 | Pulse 82 | Ht 1.676 m (5' 6") | Wt 113.853 kg (251 lb) | BMI 40. 53 kg/(m^2) - General: AAOx3, cooperative with exam - Chest: No signs of respiratory distress. Regular respiratory rate and rhythm. Remainder of physical exam deferred to PAT clinic. PLAN: - complex SUSHIL of right side is scheduled for 07/12. - Perioperative antibiotic will be ancef - DVT risk: High--chronic anticoag - D/C Plan: rehab facility A1C of 8.3 is above acceptable threshold for elective SUSHIL. He will need to be postponed pe r Dr. Walker until his A1C comes down (see [facility] note) - A PARQ session was held, additional [...] hernia Hypertension Diabetes mellitus Chronic pain Pruritus Current Medication List Name Sig ACETAMINOPHEN 650 [...] Tab by mouth two times daily. WARFARIN 5 MG TABLET Take 6 mg by mouth [...] Social History Narrative No narrative on file documented in this e ncounter Plan of Treatment Not on filedocumented as of this encounter Visit Diagnoses + + | Diagnosis | + + | Preoperative clearance - Primary Preoperative examination, unspecified | + + documented in this encounter
--- OUTSIDE RECORDS SUMMARY | ~2019-08-03 | XMS | Encounter Summary ---
Demographics + + + | Address | [address] | | | [place] [address] | + + + | Home Phone [...] Team Providers + +------+ + | Care Hotel Service Supervisor Name | Role | Phone | + +------+ + | Gracie Mariano MD | PCP | | + +------+ + Encounter Details +--------+ + + + + | Date | Type | Department | Care Team | Description | +--------+ + + + + | 04/28/ | Hospital | Cardiac | Priceh, Neftaly Ecg Tech | | | 2011 | Encounter | Non-Invasive Testing | [address] | | | | | at [address] [facility] | [facility] | | | | | [address] | [place] [address] | | | | | Loop Mailcode: | | | | | | [id number] | | | | | | [facility] | | | | | | [place], [place] | | | | | | [address] | | | | | | [phone] | | | +--------+ + + + [...] | + + + + + | [facility] DEPARTMENT OF | [address] | [place] [address] | | | PATHOLOGY | [address] | | | + + + + + documented in this encounter Visit Diagnoses Not on filedocumented in this encounter"
--- OUTSIDE RECORDS SUMMARY | ~2019-08-03 | XMS | Encounter Summary ---
Demographics + + + | Address | [address] | | | [place] [address] | + + + | Home Phone [...] Team Providers + +------+ + | Care Staff Midwife Name | Role | Phone | + +------+ + | Scooby Mcclure MD | PCP | | + +------+ + Encounter Details +--------+ + + + + | Date | Type | Department | Care Team | Description | +--------+ + + + + | 02/22/ | Pharmacy | Outpatient Retail | | | | 2018 | Visit | [facility] | | | | | | [address] | | | | | | [place], [place] | | | | | | [address] | | | | | | [phone] | | | +--------+ + + + [...]
--- OUTSIDE RECORDS SUMMARY | ~2019-08-03 | XMS | Encounter Summary ---
Demographics + + + | Address | [address] | | | [place] [address] | + + + | Home Phone | | + + + | Preferred Language | Unknown | + + + | Marital Status | Single | + + + | Catholic Affiliation | BAP | + + [...] Team Providers + +------+ + | Care Residential Sales Executive Name | Role | Phone | + +------+ + | Kita Schafer MD | PCP | | + +------+ + Reason for Referral Consult to [place] (Routine) +--------+--------+ + + + + | Status | Reason | Specialty | Diagnoses / | Referred By | Referred To | | | | | Procedures | Contact | Contact | +--------+--------+ + + + + | Closed | | Orthopedics | Diagnoses | Denise | [place], | | | | | Ankylosis | Jorge Paige MD | Jorge Paige MD | | | | | of pelvic | [address] | [address] | | | | | region and | [address] | [place] | | | | | thigh joint | [address] | [address] [place], | | | | | Ankylosing | [place], [place] | [place] | | | | | spondylitis | [address] | [address] | | | | | ([facility]) | Phone: | Phone: | | | | | Procedures | [phone] | [phone] | | | | | REQUEST TO | Fax: | Fax: | | | | | SURGERY | [phone] | [phone] | | | | | HAND BINDER CUTTER | | | | | | | MO TOTAL HIP | | | | | [...] | | | | Provider Per | [address] | | | | | | Patient NO | [address] | | | | | | REFERRING | Joseph [place], | | | | | | PROVIDER PER | [place] | | | | | | PT | [address] | | | | | | | Phone: | | | | | | | [phone] | | | | | | | Fax: | | | | | | | [phone] | +--------+--------+ + + + + Encounter Details +--------+---------+ + + + | Date | Type | Department | Care Team | Description | +--------+---------+ + + + | 12/15/ | Office | Orthopaedics at | Jorge Walker MD | Osteoarthrosis, hip; | | 2010 | Visit | [facility] [address] | Ankylosing | | | | [address] | [address] | spondylitis (HCC) | | | | Mailcode: PV430 | [place], [place] | | | | | [facility] | [address] | | | | | [place], [place] | [phone] | | | | | [address] | | | | | | [phone] | | | +--------+---------+ + + + [...] + + + + | Weight | 112.5 kg (248 lb) | 12/15/2010 12:10 PM | | | | | PDT | | + + + + + | Height | 173 cm (5' 8.11") | 12/15/2010 12:10 PM | | | | | PDT | | + + + + + | Body Mass Index | 37.59 | 12/15/2010 12:10 PM | | | | | PDT | | + + + + + documented in this encounter Progress Notes Jorge Walker MD - 12/15/2010 12:56 PM PDT 60 yo male with severe with bilateral hip involvement. Was indicated for staged SUSHIL but was delayed for dentition reasons-- had broken a tooth biting in to something just prior to preop appt. 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 Was also recently evaluated at [facility] in [facility] for confusion and the w/u was negative. Here to try to move forward with SUSHIL's. Feels pain is significantly worse. Was able to am bulate with canes, now requires a rolling walker, and even that is difficult. Taking MS contin 120 mg TID and MORPHINE SULFATE 50 mg prn. 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 lisinopril 5 mg Oral Tablet Take 5 mg by mouth once daily. metformin 500 mg Oral Tablet Take 500 mg by mouth. Take 1/2 tab twice a day morphine CR 60 mg Oral Tablet Sustained Release Take 60 mg by mouth every twelve hours. Morphine Sulfate 15 mg Oral Capsule Take 15 mg by mouth every four hours as needed. simvastatin 40 mg Oral Tablet Take 40 mg by mouth once daily in the evening. Past Surgical History Procedure Date Colectomy 2002 partial, for diverticulitis Rotator cuff repair 1997 Allergies Allergen Reactions Penicillins Rash Codeine Rash Family History Problem Relation Cancer Mother mesothelioma Heart Disease Father History Social History Marital Status: Single Spouse Name: N/A Number of Children: N/A Years of Education: N/A Occupational History Not on file. Social History Main Topics Smoking status: Former Smoker Smokeless tobacco: Never Used Alcohol Use: No Drug Use: Yes Sexually Active: Not on file Other Topics Concern Not on file Social History Narrative No narrative on file ROS reviewed on intake PE:Ht 1.73 m (5' 8.11") | Wt 112.492 kg (248 lb) | BMI 37.59 kg/(m^2) gen nad cv effort easy Crouched gait [place] bilat LE with 5/5 bilat ehl/apf/adf 2+ dp bilat At least 40 deg bilat flexion contractures of hips No discernable motion through hip joints but ++ guarding Mild pitting edema to mid-tibia bilaterally Integument intact Xray: Near ankylosis hips, right hip slightly more progressed than the left A/P: This is a very complicated problem, particularly in the setting of his co-morbidities . He is indicated for staged, bilateral hip replacements. The second side could be done in relatively short order depending on how he responds to the first side. Managing his antico agulation will also be a challenge. He would very much like his preop through his PCP as he lives near [place]. I will send a note to see if this is feasible. His coumadin will pérez ve to be stopped and likely he will need to be bridged with Lovenox until the day before ni braeden. He will be contacted to schedule. documented in this enc ounter Plan of [...]
--- OUTSIDE RECORDS SUMMARY | ~2019-08-03 | XMS | Encounter Summary ---
Demographics + + + | Address | [address] | | | [place] [address] | + + + | Home Phone [...] Team Providers + +------+ + | Care Inspector Finishing Name | Role | Phone | + +------+ + | Gracie Mariano MD | PCP | | + +------+ + Encounter Details +--------+------+ + + + | Date | Type | Department | Care Team | Description | +--------+------+ + + + | 12/07/ | Lab | Laboratory, | | Ankylosing | | 2013 | | Specimen Collection | | spondylitis (HCC) | | | | at [facility] 3rd Floor | | | | | | [address] | | | | | | [address] [place], [place] | | | | | | [address] | | | | | | [phone] | | | +--------+------+ + + + [...] + + + + + | [facility] | [address] | [place] [address] | | | [place] [facility] | [address] | | | + + + + + HEMOGLOBIN A1C, BLOOD (12/07/2013 9:31 AM PDT) + + + + + + | Component | Value | Ref Range | Performed | Pathologist | | | | | At | Signature | + + + + + + | HEMOGLOBIN | 6.9 (H)Comment: Hbg A1c | 4.3 - 5.6 % | [facility] | | | A1C | Interpretive | | LABORATORY | | | | Information: | | SERVICES, | | | | <5.7% - Normal | | SPECIAL IMM | | | | 5.7-6.4% - Consistent | | + COAG | | | | with pre-diabetes | | | | | | [...] | + + + + + | [facility] | [address] | [place] [address] | | | SERVICES, SPECIAL | PARK [...] + | [place] [facility] - | [address] | [place] [address] | | | [place] | | | [...] | | | LABORATORY | | | ETHIOPIAN | | | SERVICES, | | | [...] | + + + + + | [facility] | [address] | [place] [address] | | | SERVICES, NAY | [address] | | | + + + + + documented in this encounter Visit Diagnoses + + | Diagnosis | + + | Ankylosing spondylitis (HCC) Ankylosing spondylitis | + + documented in this encounter"
--- OUTSIDE RECORDS SUMMARY | ~2019-08-03 | XMS | Encounter Summary ---
Demographics + + + | Address | [address] | | | [place] [address] | + + + | Home Phone | | + + + | Preferred Language | Unknown | + + + | Marital Status | Single | + + + | Moravian Affiliation | BAP | + + + | Race | or | + + + | Ethnic Group | Not or | + + + Author + + + | Author | [facility] | + + + | Organization | [facility] | + + + | Address [...] Team Providers + +------+ + | Care Outside Salesperson Name | Role | Phone | [...] Rd | | | | | | [place], [place] | | | | | | [address] | | | +--------+ + + + [...]
--- OUTSIDE RECORDS SUMMARY | ~2019-08-03 | XMS | Encounter Summary ---
Demographics + + + | Address | [address] | | | [place] [address] | + + + | Home Phone [...] Team Providers + +------+ + | Care Construction Foreman Name | Role | Phone | + +------+ + | Gracie Mariano MD | PCP | | + +------+ + Encounter Details +--------+ + + + + | Date | Type | Department | Care Team | Description | +--------+ + + + + | 06/29/ | Anesthesia | [address] | Angeline Marshall | | | 2012 | Event | [address] [place] | R, SCARFING MACHINE OPERATOR [address] | | | | | Rd [facility] | [facility] [address] | | | | | Hospital Admitting | [place], [place] | | | | | Desk Located on the | [address] | | | | | 9th floor | [phone] | | | | | [place], [place] | | | | | | [address] | | | +--------+ + + + [...] | | | Royal Walker MD at [facility] | | | | [...]
--- OUTSIDE RECORDS SUMMARY | ~2019-08-03 | XMS | Encounter Summary ---
Demographics + + + | Address | [address] | | | [place] [address] | + + + | Home Phone | | + + + | Preferred Language | Unknown | + + + | Marital Status | Single | + + + | Mu-Ism Affiliation | BAP | + + + | Race | or | + + + | Ethnic Group | Not or | + + + Author + + + | Author | [facility] | + + + | Organization | [facility] | + + + | Address [...] Providers + +------+ + | Care Environmental Field Professional Name | Role | Phone | [...] Closed | | Physical | Diagnoses | Royal | | | | | Therapy | Balance | Arline Kendall, | | | | | | problem | PA-C [address] | | | | | | Procedures | [address] | | | | | | PHYSICAL | [place], | | | | | | THERAPY | [place] | | | | | | REFERRAL | [address] | | | | | | | Phone: | | | | | | | [phone] | | | | | | | Fax: | | | | | | | [phone] | | +--------+--------+ + + + + Reason for Visit + + + | Reason | Comments | + + + | Postoperative visit | | + + + Encounter Details +--------+---------+ + + + | Date | Type | Department | Care Team | Description | +--------+---------+ + + + | 04/06/ | Office | Spine [facility] at | Arline Paige, | Closed displaced | | 2018 | Visit | [facility] [address] | PA-C [address] | fracture of second | | | | Ave Mailcode: | Ave [facility], [place] | cervical vertebra, | | | | [facility] | [address] | unspecified fracture | | | | and Healing, | [phone] | morphology, initial | | | | [address] | | encounter (HCC) | | | | [place], [place] | | (Primary Dx); Neck | | | | [address] | | pain; Balance | | | | [phone] | | problem; Ankylosing | | | | | | spondylitis, | | | | | | unspecified site of | | | | | | spine ([facility]) | +--------+---------+ + + + [...] traveling is a hardship. SPINE CENTER AT [address] [address] documented in this encounter Plan [...]
--- OUTSIDE RECORDS SUMMARY | ~2019-08-03 | XMS | Encounter Summary ---
Demographics + + + | Address | [address] | | | [place] [address] | + + + | Home Phone [...] Providers + +------+ + | Care Commercial Housekeeper Name | Role | Phone | [...] + + + + | 05/09/ | Anesthesia | [address] | Aubrey Mckeon, | | | 2011 | Event | [address] | [address] | | | | | [facility] | [address] | | | | | Hospital Admitting | [place], [place] | | | | | Desk Located on the | [address] | | | | | 9th floor | [phone] | | | | | [place], [place] | | | | | | [address] | Genie Bennett MD | | | | | | [address] | | | | | | [place], | | | | | | [place] [address] | | | | | | [phone] | | | | | | | [...] | + + + | midazolam | 4 mg | + + + | fentaNYL | 450 mcg | + + + | ropivacaine 0.5% | 20 mL | + + + | cloNIDine | 75 mcg | + + + | gabapentin (NEURONTIN) tablet | 600 mg | | (600 mg, 800 mg) | | + + + | acetaminophen (TYLENOL) tablet | 1,000 mg | + + + | lidocaine 2% | 100 mg | + + + | ketamine | 70 mg | + + + | propofol | 200 mg | + + + | succinylcholine | 140 mg | + + + | esmolol | 50 mg | + + + | ePHEDrine | 5 mg | + + + | HYDROmorphone | 1 mg | + + + | ceFAZolin | 2,000 mg | + + + | ondansetron | 4 mg | + + + | LR | 1,950 mL | + + + | NS | 1,000 mL | + + + + + | Name | + + | Insp Abner | + + | Et Abner | + + | O2 Flow Rate [...] + + + | RETIRE | 05/09/12; 09; 05/12/12; 1545; | 05/09/12937 by | 05/12/12 [...] D - | No; Chepe; 16FR | Jay Lewis RN | Cheyanne [place] CNA | | Everardo | | | | [...] | + +--------+ + +------+------+ | acetaminophen (aka TYLENOL) | Given | 05/09/20 | 1,000 mg | | | | tablet INTRAPROCEDURE PRN, | | 12 11:29 | | | | | Starting Wed05/09/12 at 1129, | | AM PDT | | | | | Until Wed05/09/12 at 1514 | | | | | | + +--------+ + +------+------+ +---+---+ | | | +---+---+ + +-------+ + +---+---+ | ceFAZolin (aka ANCEF) injection | Given | 05/09/20 | 2,000 mg | | | | intravenous, INTRAPROCEDURE | | 12 12:15 | | | | | PRN, Starting Wed05/09/12 at | | PM PDT | | | | | 1215, Until Wed05/09/12 at 1514 | | | | | | + +-------+ + +---+---+ +---+---+ | | | +---+---+ + +-------+ +--------+---+---+ | cloNIDine (aka DURACLON) | Given | 05/09/20 | 75 mcg | | | | injection INTRAPROCEDURE PRN, | | 12 10:50 | | | | | Starting Wed05/09/12 at 1050, | | AM PDT | | | | | Until Wed05/09/12 at 1514 | | | | | | + +-------+ +--------+---+---+ +---+---+ | | | +---+---+ + +-------+ +------+---+---+ | ePHEDrine injection | Given | 05/09/20 | 5 mg | | | | intravenous, INTRAPROCEDURE PRN, | | 12 12:55 | | | | | Starting 05/09/12 at 1255, | | PM PDT | | | | | Until 05/09/12 at 1514 | | | | | | + +-------+ +------+---+---+ +---+---+ | | | +---+---+ + +-------+ +-------+---+---+ | esmolol (aka BREVIBLOC) | Given | 05/09/20 | 50 mg | | | | injection intravenous, | | 12 11:58 | | | | | INTRAPROCEDURE PRN, Starting Mon | | AM PDT | | | | | 05/09/12 at 1158, Until Mon | | | | | | | 05/09/12 at 1514 | | | | | | + +-------+ +-------+---+---+ +---+---+ | | | +---+---+ + +-------+ +--------+---+---+ | fentaNYL citrate (PF) (aka | Given | 05/09/20 | 50 mcg | | | | SUBLIMAZE) injection | | 12 3:19 | | | | | INTRAPROCEDURE PRN, Starting Mon | | PM PDT | | | | | 05/09/12 at 1032, Until Mon | | | | | | | 05/09/12 at 1514, sedation | | | | | | + +-------+ +--------+---+---+ +-------+ +--------+---+---+ | Given | 05/09/20 | 50 mcg | | | | | 12 2:30 | | | | | | PM PDT | | | | +-------+ +--------+---+---+ | Given | 05/09/20 | 50 mcg | | | | | 12 2:07 | | | | | | PM PDT | | | | +-------+ +--------+---+---+ +---+---+ | | | +---+---+ + +-------+ +--------+---+---+ | gabapentin (aka NEURONTIN) | Given | 05/09/20 | 600 mg | | | | tablet INTRAPROCEDURE PRN, | | 12 11:29 | | | | | Starting Wed05/09/12 at 1129, | | AM PDT | | | | | Until Wed05/09/12 at 1514 | | | | | | + +-------+ +--------+---+---+ +---+---+ | | | +---+---+ + +-------+ +--------+---+---+ | HYDROmorphone (aka DILAUDID) | Given | 05/09/20 | 0.5 mg | | | | injection INTRAPROCEDURE PRN, | | 12 1:51 | | | | | Starting Wed05/09/12 at 1300, | | PM PDT | | | | | Until Wed05/09/12 at 1514, | | | | | | | sedation | | | | | | + +-------+ +--------+---+---+ +-------+ +--------+---+---+ | Given | 05/09/20 | 0.5 mg | | | | | 12 1:00 | | | | | | PM PDT | | | | +-------+ +--------+---+---+ +---+---+ | | | +---+---+ + +-------+ +-------+---+---+ | ketamine (stu KILLIAN) | Given | 05/09/20 | 10 mg | | | | injection INTRAPROCEDURE PRN, | | 12 2:30 | | | | | Starting Wed05/09/12 at 1158, | | PM PDT | | | | | Until Wed05/09/12 at 1514, | | | | | | | sedation | | | | | | + +-------+ +-------+---+---+ +-------+ +-------+---+---+ | Given | 05/09/20 | 30 mg | | | | | 12 1:30 | | | | | | PM PDT | | | | +-------+ +-------+---+---+ | Given | 05/09/20 | 30 mg | | | | | 12 11:58 | | | | | | AM PDT | | | | +-------+ +-------+---+---+ +---+---+ | | | +---+---+ + +---------+ +----+---+---+ | lactated ringers IV | New Bag | 05/09/20 | mL | | | | INTRAPROCEDURE CONTINUOUS PRN, | | 12 2:31 | | | | | Starting Wed05/09/12 at 1012, | | PM PDT | | | | | Until Wed05/09/12 at 1514 | | | | | | + +---------+ +----+---+---+ + + +----+---+---+ | given by anesthesiology | 05/09/20 | mL | | | | | 12 1:30 | | | | | | PM PDT | | | | + + +----+---+---+ | given by anesthesiology | 05/09/20 | mL | | | | | 12 1:00 | | | | | | PM PDT | | | | + + +----+---+---+ +---+---+ | | | +---+---+ + +-------+ +--------+---+---+ | lidocaine (aka XYLOCAINE MPF) | Given | 05/09/20 | 100 mg | | | | 20 mg/mL (2 %) injection | | 12 11:58 | | | | | INTRAPROCEDURE PRN, Starting Mon | | AM PDT | | | | | 05/09/12 at 1158, Until Mon | | | | | | | 05/09/12 at 1514 | | | | | | + +-------+ +--------+---+---+ +---+---+ | | | +---+---+ + +-------+ +------+---+---+ | midazolam (aka VERSED) | Given | 05/09/20 | 2 mg | | | | injection INTRAPROCEDURE PRN, | | 12 11:46 | | | | | Starting 05/09/12 at 1032, | | AM PDT | | | | | Until Wed05/09/12 at 1514, | | | | | | | sedation | | | | | | + +-------+ +------+---+---+ +-------+ +------+---+---+ | Given | 05/09/20 | 2 mg | | | | | 12 10:32 | | | | | | AM PDT | | | | +-------+ +------+---+---+ +---+---+ | | | +---+---+ + + + +----+---+---+ | NaCl 0.9 % IV INTRAPROCEDURE | given by | 05/09/20 | mL | | | | CONTINUOUS PRN, Starting Mon | | 12 2:15 | | | | | 05/09/12 at 1325, Until Mon | anesthes | PM PDT | | | | | 05/09/12 at 1514 | iology | | | | | + + + +----+---+---+ + + +----+---+---+ | given by anesthesiology | 05/09/20 | mL | | | | | 12 2:00 | | | | | | PM PDT | | | | + + +----+---+---+ | given by anesthesiology | 05/09/20 | mL | | | | | 12 1:43 | | | | | | PM PDT | | | | + + +----+---+---+ +---+---+ | | | +---+---+ + +-------+ +------+---+---+ | ondansetron (aka ZOFRAN) | Given | 05/09/20 | 4 mg | | | | injection INTRAPROCEDURE PRN, | | 12 2:20 | | | | | Starting Wed05/09/12 at 1420, | | PM PDT | | | | | Until Wed05/09/12 at 1514 | | | | | | + +-------+ +------+---+---+ +---+---+ | | | +---+---+ + +-------+ +--------+---+---+ | propofol INTRAPROCEDURE PRN, | Given | 05/09/20 | 200 mg | | | | Starting Wed05/09/12 at 1158, | | 12 11:58 | | | | | Until Wed05/09/12 at 1514 | | AM PDT | | | | + +-------+ +--------+---+---+ +---+---+ | | | +---+---+ + +-------+ +-------+---+---+ | ropivacaine (aka NAROPIN) 5 | Given | 05/09/20 | 20 mL | | | | mg/mL injection INTRAPROCEDURE | | 12 10:50 | | | | | PRN, Starting 05/09/12 at | | AM PDT | | | | | 1050, Until 05/09/12 at 1514 | | | | | | + +-------+ +-------+---+---+ +---+---+ | | | +---+---+ + +-------+ +--------+---+---+ | SUCCINYLCHOLINE CHLORIDE 20 | Given | 05/09/20 | 140 mg | | | | MG/ML INJ (PROSED/RSI) | | 12 11:58 | | | | | INTRAPROCEDURE PRN, Starting Mon | | AM PDT | | | | | 05/09/12 at 1158, Until Mon | | | | | | | 05/09/12 at 1514, Neuromuscular | | | | | | | block | | | | | | + +-------+ +--------+---+---+ +---+---+ | | | +---+---+ documented in this encounter"
--- OUTSIDE RECORDS SUMMARY | ~2019-08-03 | XMS | Encounter Summary ---
Demographics + + + | Address | [address] | | | [place] [address] | + + + | Home Phone [...] Team Providers + +------+ + | Care Meat Seafood Associate Name | Role | Phone | + +------+ + | Scooby Mcclure MD | PCP | | + +------+ + Encounter Details +--------+ + + + + | Date | Type | Department | Care Team | Description | +--------+ + + + + | 02/21/ | Document-Sc | Health Information | Unknown . | | | 2018 | anned | Services [address] | | | | | | [address] | | | | | | Mailcode: OP17A | | | | | | [facility] | | | | | | [place], [place] | | | | | | [address] | | | | | | [phone] | | | +--------+ + + + [...]
--- OUTSIDE RECORDS SUMMARY | ~2019-08-03 | XMS | Encounter Summary ---
Demographics + + + | Address | [address] | | | [place] [address] | + + + | Home Phone [...] Team Providers + +------+ + | Care Cryptologic Technician Technical Name | Role | Phone | + [...] Rd | | | | | | [place], [place] | | | | | | [address] | | | +--------+ + + + [...]
--- OUTSIDE RECORDS SUMMARY | ~2019-08-03 | XMS | Encounter Summary ---
Demographics + + + | Address | [address] | | | [place] [address] | + + + | Home Phone [...] Team Providers + +------+ + | Care Television Announcer Name | Role | Phone | + +------+ + | Gracie Mariano MD | PCP | | + +------+ + Encounter Details +--------+ + + + + | Date | Type | Department | Care Team | Description | +--------+ + + + + | 02/15/ | Telephone | [facility] at [facility] | Harinder Felton, | | | 2012 | | [facility] [address] | [address] | | | | | [address] Mailcode: | [place] [address] | | | | | [address] [facility] | [phone] | | | | | Health and Healing, | | | | | | [address] | | | | | | [place], [place] | | | | | | [address] | | | | | | [phone] | | | +--------+ + + + [...]
--- OUTSIDE RECORDS SUMMARY | ~2019-08-03 | XMS | Encounter Summary ---
Demographics + + + | Address | [address] | | | [place] [address] | + + + | Home Phone [...] + + | Author | [facility] | + + + | Organization | [facility] | + + + | Address | [...] + +------+ + | Care Director Of Career Services Name | Role | Phone | + [...] | 2010 | Visit | Oncology at [facility] | MD Jorge [address] | Dx) | | | | [address] | [address] [place], | | | | | Mailcode: [facility] | [place] [address] | | | | | [facility] | [phone] | | | | | and Zack, | | | | | | [facility] | | | | | | [place], [place] | | | | | | [address] | | | | | | [phone] | | | +--------+---------+ + + + [...] need for hip surgery. Was traveling to [facility] and back when had leg [...] Intact Psy: Appropriate Jorge Moore MD, FACP garage door service technician, Pathology, and Pediatrics [facility] documented in this encounter Plan of Treatment [...] | LABORATORY | | | | at [facility], | | | | | | [place], [place]. | | | | + + + + + + + + | Specimen | + + | Blood - Blood | + + + + + | Narrative | Performed At | + + + | [facility] | [place] | | [place] [address] | REGIONAL | | [place] [address] | LABORATORY | + + + + + + + + | Performing | Address | City/State/Zipcode | Phone Number | | Organization | | | | + + + + + | [facility] | [address] | [place] [address] | | | LABORATORY | | | [...] + + + + + | [facility] DEPARTMENT OF | [address] | [place] [address] | | | PATHOLOGY | [address] [...] | [facility] | | obtained with the [employer] QUANTA Lite B2GP1 IgGMA TRIPP. B2GP1 | DEPARTMENT OF | | IgGMA values obtained with different terra cotta setter's assay methods | PATHOLOGY | | may not be used interchangeably. It is to be expected that some | | | samples can be anticardioplipin positive yet anti-B2GP1 negative. | | | The anti-B2GP1 test is a more specific marker of thrombotic | | | risk. Interpretive Data for Anti-B2 Glycoprotein 1 G,M,A | | | Negative: ( 0-19) | | | Units Low Positive: | | | (21-35) Units Moderate Positive: | | | (36-80) Units High | | | Positive: ( > 80) Units | | + + + + + + + + | Performing | Address | City/State/Zipcode | Phone Number | | Organization | | | | + + + + + | [facility] DEPARTMENT | [address] [facility] | [place] [address] | | | PATHOLOGY | [address] [...] [facility] | | Anticardiolipin Antibodies IgG, IgM Negative: | DEPARTMENT OF | | (<9-19) PL Units | PATHOLOGY | | Low Positive: (20-30) | | | PL Units Moderate Positive: | | | (31-80) PL Units High Positive: | | | ( > 80) PL Units | | | Interpretive Data for Anticardiolipin Antibody IgA | | | Negative: (<9-14) PL | | | Units Low Positive: | | | (15-25) PL Units Moderate | | | Positive: (26-80) PL Units | | | High Positive: ( > 80) | | | PL Units | | + + + + + + + + | Performing | Address | City/State/Zipcode | Phone Number | | Organization | | | | + + + + + | [facility] | [address] | [place] [address] | | | PATHOLOGY | [address] [...] | | | STD LMW | Heparin, Either STD/LMW | | DEPARTMENT | | | | - Therapeutic Ranges: | | OF | | | | Heparin, | | PATHOLOGY | | | | Unfractionated: 0.35 - | | | | | | 0.70 U/mL | | | | | | Enoxaparin, LMWH: | | | | | | 0.70 - 1.20 U/mL | | | | | | Dalteparin, | | | | | | LMWH: 0.70 - | | | | | | 1.20 U/mL | | | | | | Tinzaparin, LMWH: | | | | | | Therapeutic range | | | | | | not established. | | | | | | | | | | | | | | | | | | Preliminary studies | | | | | | suggest range | | | | | | | | | | | | similar | | | | | | to dalteparin. | | | | | | Clinical | | | | | | | | | | | | correlation | | | | | | required. | | | | + + [...] | + + + + + | [facility] | [address] | [place] [address] | | | PATHOLOGY | [address] | | | + + + + + documented in this encounter Visit Diagnoses + + | Diagnosis | + + | Thrombosis - Primary Embolism and thrombosis of unspecified site | + + documented in this encounter"
--- OUTSIDE RECORDS SUMMARY | ~2019-08-03 | XMS | Encounter Summary ---
Demographics + + + | Address | [address] | | | [place] [address] | + + + | Home Phone | | + + + | Preferred Language | Unknown | + + + | Marital Status | Single | + + + | Pentecostal Affiliation | BAP | + + + [...] Team Providers + +------+ + | Care Adjuster Leader Name | Role | Phone | + +------+ + | Scooby Mcclure MD | PCP | | + +------+ + Encounter Details +--------+ + + + + | Date | Type | Department | Care Team | Description | +--------+ + + + + | 02/15/ | Procedure | Diagnostic Imaging | | | | 2018 | Pass | Services at [facility] | | | | | | [address] | | | | | | [place] Mailcode: | | | | | | [address] [facility] | | | | | | [place], [place] | | | | | | [address] | | | | | | [phone] | | | +--------+ + + + [...]
--- OUTSIDE RECORDS SUMMARY | ~2019-08-03 | XMS | Encounter Summary ---
Demographics + + + | Address | [address] | | | [place] [address] | + + + | Home Phone [...] + + | Author | [facility] | + + + | Organization | [facility] | + + + | [...] Team Providers + +------+ + | Care Train Reservation Clerk Name | Role | Phone | + +------+ + | Gracie Mariano MD | PCP | | + +------+ + Encounter Details +--------+ + + + + | Date | Type | Department | Care Team | Description | +--------+ + + + + | 11/24/ | Hospital | LAB SURGICAL | | | | 2012 | Encounter | PATHOLOGY [address] | | | | | | [address] | | | | | | [place], [place] | | | | | | [address] | | | +--------+ + + + [...]
--- OUTSIDE RECORDS SUMMARY | ~2019-08-03 | XMS | Encounter Summary ---
Demographics + + + | Address | [address] | | | [place] [address] | + + + | Home Phone [...] Team Providers + +------+ + | Care Aerodynamicist Name | Role | Phone | + +------+ + | Gracie Mariano MD | PCP | | + +------+ + Reason for Visit Diagnostic Testing (Routine) +--------+--------+ + + + + | Status | Reason | Specialty | Diagnoses / | Referred By | Referred To | | | | | Procedures | Contact | Contact | +--------+--------+ + + + + | Closed | | Radiology | Diagnoses | [place], | Rad | | | | | Nonspecific | MD Adriano | Ultrasound | | | | | elevation | [address] | [address] | | | | | of levels of | Ave | [address] | | | | | | [place], [place] | Mailcode: | | | | | transaminase | [address] | [facility] | | | | | or lactic | | for Health | | | | | acid | | and Healing, | | | | | dehydrogenas | | Building [address], | | | | | e (LDH) | | 3rd Floor | | | | | Procedures | | [place], [place] | | | | | US ABDOMEN | | [address] | | | | | LIMITED | | Phone: | | | | | | | [phone] | | | | | | | Fax: | | | | | | | [phone] | +--------+--------+ + + + + Encounter Details +--------+ + + + + | Date | Type | Department | Care Team | Description | +--------+ + + + + | 12/07/ | Hospital | Diagnostic | | | | 2013 | Encounter | Radiology at [facility] | | | | | | [address] | | | | | | [address] Mailcode: | | | | | | [id number] [facility] | | | | | | [facility] [place], | | | | | | [place] [address] | | | | | | [phone] | | | +--------+ + + + [...] + +--------+ + + + | US ABDOMEN LIMITED | Routin | 12/07/2013 | Nonspecific | Results for this | | | e | 10:18 AM | elevation of levels | procedure are in the | | | | PDT | of transaminase or | results section. | | | | | lactic acid | | | | | | dehydrogenase (LDH) | | + +--------+ + + + documented in this encounter Results US ABDOMEN LIMITED (12/07/2013 10:18 AM PDT) + + + + + + | Component | Value | Ref Range | Performed | Pathologist | | | | | At | Signature | + + + + + + | US ABDOMEN | EXAM: US ABDOMEN LIMT | | | | | LIMITED | HISTORY: Elevation in | | | | | | AST/ALT COMPARISON: | | | | | [...] | | | | signed / WALLACE PALMER | | | | | | 12/07/2013 11:50 AM | | | | + + + + + + + + | Specimen | + + | | + + + +---------+ + + | Performing | Address | City/State/Zipcode | Phone Number | | Organization | | | | + +---------+ + + | [facility] DEPARTMENT OF | | | | | RADIOLOGY | | | | + +---------+ + + documented in this encounter Visit Diagnoses + + | Diagnosis | + + | Nonspecific elevation of levels of transaminase or lactic acid dehydrogenase (LDH) | + + documented in this encounter"
--- OUTSIDE RECORDS SUMMARY | ~2019-08-03 | XMS | Encounter Summary ---
Demographics + + + | Address | [address] | | | [place] [address] | + + + | Home Phone [...] Author + + + | Author | [facility] | + + + | Organization | [facility] | + + + | Address [...] Team Providers + +------+ + | Care Merchant Mill Utility Worker Name | Role | Phone | [...] | 2010 | Visit | Oncology at [facility] | MD Jorge [address] | Dx) | | | | [address] | [address] [place], | | | | | Mailcode: [facility] | [place] [address] | | | | | [facility] | [phone] | | | | | and Zack, | | | | | | [facility] | | | | | | [place], [place] | | | | | | [address] | | | | | | [phone] | | | +--------+---------+ + + + [...] need for hip surgery. Was traveling to [facility] and back when had leg swel ling [...] Intact Psy: Appropriate Jorge Moore MD, FACP machine clothing worker, Pathology, and Pediatrics [facility] documented in this encounter Plan of Treatment [...] | LABORATORY | | | | at [facility], | | | | | | [place], [place]. | | | | + + + + + + + + | Specimen | + + | Blood - Blood | + + + + + | Narrative | Performed At | + + + | [facility] | [place] | | [facility] [place] [address] | REGIONAL | | [place] [address] | LABORATORY | + + + + + + + + | Performing | Address | City/State/Zipcode | Phone Number | | Organization | | | | + + + + + | [facility] | [address] | [place] [address] | | | LABORATORY | | | [...] [facility] DEPARTMENT OF | [address] | [place] [address] | | | PATHOLOGY | [address] [...] | [facility] | | obtained with the [employer] Personal Care Device QUANTA Lite B2GP1 IgGMA TRIPP. B2GP1 | DEPARTMENT OF | | IgGMA values obtained with different client development consultant's assay methods | PATHOLOGY | | may [...] | [facility] DEPARTMENT | [address] | [place] [address] | | | PATHOLOGY | [address] [...] | + + + + + | [facility] | [address] | [place] [address] | | | PATHOLOGY | [address] [...] | + + + + + | [facility] | [address] | [place] [address] | | | PATHOLOGY | [address] | | | + + + + + documented in this encounter Visit Diagnoses + + | Diagnosis | + + | Thrombosis - Primary Embolism and thrombosis of unspecified site | + + documented in this encounter"
--- OUTSIDE RECORDS SUMMARY | ~2019-08-03 | XMS | Encounter Summary ---
Demographics + + + | Address | [address] | | | [place] [address] | + + + | Home Phone [...] + + + | Author | [facility] | + + + | Organization | 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 | | | | /[id number] [facility] | | (Primary Dx) | | | | [facility], | | | | | | [place] [address] | | | | | | [phone] | | | +--------+---------+ + + + [...] to con tact us with further questions: [phone] documented in this encounter Progress Notes Antony [...] is a 61 year old male, from [place], [place], with a history of ankylosis spondyl [...] thigh Past Surgical History Procedure Date Colectomy 2002 [...] Patch 2 Patch Transdermal Q24H Kimb erly Gerard, RESIDENTIAL CARE FACILITY MANAGER lisinopril (aka PRINIVIL) tablet 10 mg 10 [...] g 17 g Oral DAILY Opal Gerard, RESIDENTIAL CARE FACILITY MANAGER 17 g at 05/10/12 1201 quiNINE sulfate (aka QUALAQUIN) capsule 324 mg 324 mg Oral BID PRN SORAYA Finney senna-docusate (aka SENOKOT S) 8.6-50 mg 1 Tab 1 Tab Oral BID Opal Rich, RESIDENTIAL CARE FACILITY MANAGER 1 Ta b at 05/10/12 1201 warfarin [...] IMAGING: X-RAY PORTABLE PELVIS 1 VIEW: EXAM: [place] PELVIS 1 VIEW, 05/10/12 COMPARISON: 12/15/2010 HISTORY: [...]
--- OUTSIDE RECORDS SUMMARY | ~2019-08-03 | XMS | Encounter Summary ---
Demographics + + + | Address | [address] | | | [place] [address] | + + + | Home Phone [...] Author + + + | Author | [facility] | + + + | Organization | [facility] | + + + | Address [...] Team Providers + +------+ + | Care Birdcage Assembler Name | Role | Phone | + +------+ + | Kita Schafer MD | PCP | | + +------+ + Encounter Details +--------+ + + + + | Date | Type | Department | Care Team | Description | +--------+ + + + + | 02/15/ | Abstract | Digestive Health | Harinder Felton, | | | 2011 | | Center at [facility] [address] | MD [address] | | | | | [address] | [place] [address] | | | | | Mailcode: Center | [phone] | | | | | for Health and | | | | | | [facility] [address] | | | | | | [place], [place] | | | | | | [address] | | | | | | [phone] | | | +--------+ + + + [...]
--- OUTSIDE RECORDS SUMMARY | ~2019-08-03 | XMS | Encounter Summary ---
Demographics + + + | Address | [address] | | | [place] [address] | + + + | Home Phone [...] Team Providers + +------+ + | Care Emr Specialist Name | Role | Phone | [...] | | Medicine Clinic at | T, DIGITAL MEDIA BUYER-C[facility] | | | | | [facility] | | | | | | [address] | | | | [address] | | | | | | Mailcode: [address] | | | | | | [facility] | | | | | | [address] [place], [place] | | | | | | [address] | | | | | | [phone] | | | +--------+ + + + [...]
--- OUTSIDE RECORDS SUMMARY | ~2019-08-03 | XMS | Encounter Summary ---
Demographics + + + | Address | [address] | | | [place] [address] | + + + | Home Phone [...] + + + | Author | [facility] | + + + | Organization | [facility] | + + + | [...] Providers + +------+ + | Care Rn Referral Name | Role | Phone | + [...] | | | | | | [place], | | | | | | [place] [address] | | | | | | [phone] | | | +--------+ + + + [...]
--- OUTSIDE RECORDS SUMMARY | ~2019-08-03 | XMS | Encounter Summary ---
Demographics + + + | Address | [address] | | | [place] [address] | + + + | Home Phone [...] Team Providers + +------+ + | Care Associate Pastor Name | Role | Phone | + [...] | | | is, hip Hip | [facility] | [address] | | | | | pain, | & Fractur | [address] [place], | | | | | bilateral | [address] | [place] | | | | | Ankylosing | [address] | [address] | | | | | spondylitis | [place] | Phone: | | | | | ([facility]) | [place] [address] | [phone] | | | | | Procedures | Phone: | Fax: | | | | | REQUEST TO | [phone] | [phone] | | | | | SURGERY | Fax: | | | | | | INSTALLATION SUPERVISOR | [phone] | | | | | | [place] TOTAL HIP | | | | | [...] | | | | Mailcode: [address] | [place], [place] | | | | | [address] [facility] | [address] | | | | | [place], [place] | [phone] | | | | | [address] | | | | | | [phone] | | | +--------+---------+ + + + [...]
--- OUTSIDE RECORDS SUMMARY | ~2019-08-03 | XMS | Encounter Summary ---
Demographics + + + | Address | [address] | | | [place] [address] | + + + | Home Phone [...] Team Providers + +------+ + | Care Kettle Operator Name | Role | Phone | + +------+ + | Gracie Mariano MD | PCP | | + +------+ + Encounter Details +--------+ + + + + | Date | Type | Department | Care Team | Description | +--------+ + + + + | 03/13/ | Document-Sc | UNKNOWN DEPARTMENT | Unknown . | | | 2014 | anned | [address] | | | | | | [address] | | | | | | [place], [place] | | | | | | [address] | | | +--------+ + + + [...]
--- OUTSIDE RECORDS SUMMARY | ~2019-08-03 | XMS | Encounter Summary ---
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 | | | | /[id number] [facility] | | (Primary Dx) | | | | [facility], | | | | | | [place] [address] | | | | | | [phone] | | | +--------+---------+ + + + [...] to con tact us with further questions: [phone] documented in this encounter Progress Notes Antony [...] is a 61 year old male, from [place], [place], with a history of ankylosis spondyl [...] 2 Patch Transdermal Q24H Kimb erly Gerard, SCRIBING MACHINE OPERATOR lisinopril (aka PRINIVIL) tablet 10 mg 10 [...] g 17 g Oral DAILY Opal Gerard, SCRIBING MACHINE OPERATOR 17 g at 05/10/12 1201 quiNINE sulfate (aka QUALAQUIN) capsule 324 mg 324 mg Oral BID PRN SORAYA Finney senna-docusate (aka SENOKOT S) 8.6-50 mg 1 Tab 1 Tab Oral BID Opal Rich, SCRIBING MACHINE OPERATOR 1 Ta b at 05/10/12 1201 warfarin [...] IMAGING: X-RAY PORTABLE PELVIS 1 VIEW: EXAM: [place] PELVIS 1 VIEW, 05/10/12 COMPARISON: 12/15/2010 HISTORY: [...]
--- OUTSIDE RECORDS SUMMARY | ~2019-08-03 | XMS | Encounter Summary ---
Demographics + + + | Address | [address] | | | [place] [address] | + + + | Home Phone [...] Team Providers + +------+ + | Care Operations Accountant Name | Role | Phone | + +------+ + | Gracie Mariano MD | PCP | | + +------+ + Encounter Details +--------+ + + + + | Date | Type | Department | Care Team | Description | +--------+ + + + + | 11/10/ | Hospital | Radiology/Imaging | | Canceled (Scheduling | | 2015 | Encounter | Lab at [facility] [address] | | error) | | | | [address] Mailcode: | | | | | | [facility] | | | | | | Health and Healing, | | | | | | [place] [address] [facility] | | | | | | [place], [place] | | | | | | [address] | | | | | | [phone] | | | +--------+ + + + [...]
--- OUTSIDE RECORDS SUMMARY | ~2019-08-03 | XMS | Encounter Summary ---
Demographics + + + | Address | [address] | | | [place] [address] | + + + | Home Phone [...] Team Providers + +------+ + | Care Well Logging Captain Name | Role | Phone | + +------+ + | Gracie Mariano MD | PCP | | + +------+ + Encounter Details +--------+------+ + + + | Date | Type | Department | Care Team | Description | +--------+------+ + + + | 05/16/ | Lab | Laboratory, | | (ankylosing | | 2012 | | Specimen Collection | | spondylitis) ([facility]) | | | | at [facility] 3rd Floor | | | | | | [address] | | | | | | [address] [place], [place] | | | | | | [address] | | | | | | [phone] | | | +--------+------+ + + + [...] | e | 12:26 PM | spondylitis) ([facility]) | procedure are in the | | | | PDT | | results section. | + +--------+ + + + | SEDIMENTATION RATE | Routin | 05/16/2013 | (ankylosing | Results for this | | | e | 12:26 PM | spondylitis) ([facility]) | procedure are in the | | | | PDT | | results section. | + +--------+ + + + | HEPATITIS B SURFACE | Routin | 05/16/2013 | (ankylosing | Results for this | | AG, SERUM | e | 12:26 PM | spondylitis) ([facility]) | procedure are in the | | | | PDT | | results section. | + +--------+ + + + | HEPATITIS B CORE AB, | Routin | 05/16/2013 | (ankylosing | Results for this | | SERUM | e | 12:26 PM | spondylitis) ([facility]) | procedure are in the | | | | PDT | | results section. | + +--------+ + + + | HEPATITIS C VIRUS | Routin | 05/16/2013 | (ankylosing | Results for this | | W/CONFIRMATION | e | 12:26 PM | spondylitis) ([facility]) | procedure are in the | [...] + | [facility] - | [address] | [place] [address] | | | [place] | | | [...] | + + + + + | [facility] - | [address] | [place] [address] | | | [place] | | | | + + + [...] + | [facility] - | [address] | [place] [address] | | | [place] | | | [...] [facility] | [address] | [place] [address] | | | SERVICES, NAY | GENNARO [...] + | [facility] - | [address] | [place] [address] | | | [place] | | | | + + + + + documented in this encounter Visit Diagnoses + + | Diagnosis | + + | (ankylosing spondylitis) (HCC) Ankylosing spondylitis | + + documented in this encounter"
--- OUTSIDE RECORDS SUMMARY | ~2019-08-03 | XMS | Encounter Summary ---
Demographics + + + | Address | [address] | | | [place] [address] | + + + | Home Phone | | + + + | Preferred Language | Unknown | + + + | Marital Status | Single | + + + | Hindu Affiliation | 1041 | + + + | Race | Unknown | + + + | Ethnic Group | Unknown | + + + Author + + + | Author | [facility] | | | and [place] | + + + | Organization | [facility] | | | and [place] | + + + | Address | Unknown | + + + | Phone | Unavailable | + + + Support + + +---------+ + | Name | Relationship | Address | Phone | + + +---------+ + | Di Walker | ECON | Unknown | | + + +---------+ + Care Team Providers + +------+ + | Care Carbon Dioxide Operator Name | Role | Phone | + +------+ + PCP | Unavailable | + +------+ + Encounter Details +--------+ + + + + | Date | Type | Department | Care Team | Description | +--------+ + + + + | 01/06/ | Hospital | [facility] | Moni Dumont DO | Diagnosis unknown; | | 2017 - | Encounter | [facility] [address] | [address] | Closed nondisplaced | | | | [address] | [place] [address] | fracture of seventh | | 01/22/ | | [place], [place] | [phone] | cervical vertebra, | | 2017 | | [id number] | | unspecified fracture | | | | [phone] | | morphology, initial | | | | | | encounter ([facility]); | | | | | | Maxillary fracture, | | | | | | left side, initial | | | | | | encounter for open | | | | | | fracture ([facility]); | | | | | | Antiphospholipid | | | | | | syndrome ([facility]); | | | | | | Controlled type 2 | | | | | | diabetes mellitus | | | | | | with hyperglycemia, | | | | | | without long-term | | | | | | current use of | | | | | | insulin ([facility]); | | | | | | Syncope and | | | | | | collapse; CSF leak | +--------+ + + + + Social [...] + + + | Blood Pressure | 143/68 | 01/22/2017 2:28 PM | | | | | PDT | | + + + + + | Pulse | 80 | 01/22/2017 2:28 PM | | | | | PDT | | + + + + + | Temperature | 36.6 C (97.8 F) | 01/22/2017 2:28 PM | | | | | PDT | | + + + + + | Respiratory Rate | 18 | 01/22/2017 2:28 PM | | | | | PDT | | + + + + + | Oxygen Saturation | - | - | | + + + + + | Inhaled Oxygen | - | - | | | Concentration | | | | + + + + + | Weight | 106.9 kg (235 lb 9.6 | 01/22/2017 2:28 PM | | | | oz) | PDT | | + + + + + | Height | 177.8 cm (5' 10") | 01/22/2017 2:28 PM | | | | | PDT | | + + + + + | Body Mass Index | 33.81 | 01/22/2017 2:28 PM | | | | | PDT | | + + + + + documented in this encounter Discharge Summaries Jimi Mauricio MD - 01/22/2017 11:04 AM PDT Discharge Summaries by Jimi Mauricio MD at 01/22/17 1104 Author: Jimi Mauricio MD Service: Hospitalist Author Type: Physician Filed: 01/22/17 2219 Date of Service: 01/22/17 1104 Status: Signed Food Service Helper: Jimi Mauricio MD (Physician) [facility] Service: Hospitalist Discharge Summary Date of Admission: 01/06/2017 Date of Discharge: 01/22/2017 Discharge Provider: Jimi Mauricio MD Treatment Team: Consulting Physician: Mendez Morrison MD Consulting Physician: Patrick Elizabeth MD Admitting Provider: Moni Dumont DO Discharge Diagnoses: Principal Problem: Closed nondisplaced fracture of seventh cervical vertebra (HCC) Active Problems: Maxillary fracture, left side, initial encounter for open fracture Antiphospholipid syndrome (HCC) Controlled type 2 diabetes mellitus with hyperglycemia (HCC) Syncope and collapse Thyroid mass CSF leak Non morbid obesity Resolved Problems: * No resolved hospital problems. * Procedures: Procedure(s): LUMBAR - DRAINAGE BRIEF HISTORY OF PRESENTATION: Jose Rafael Walker is a 66 y.o. male who From Dr Dumont's H&P: The patient is a 66 y.o. male with significant past medical history of ankylosing spondylit is, diabetes type II, deep vein thrombosis, iron deficiency anemia, testicular hypofunction, obesity, hypertension, dyslipidemia, abdomen disorder, transient ischemic attack, non ambul atory ankylosing spondylitis, who presents to transfer from [facility] with a C7 fracture, left maxillary sinus fracture, thyroid mass and syncope. [facility] left sided face swelling, neck pain, confusion and difficulty remembe ring anything. Per history, patient woke up in a chair, went into the bathroom and found thi ngs in disarray. Granddaughter was then notified by neighbors that they heard a crashing berta nd earlier around 1:30. During the day patient had being a but was in the his usual state of health, came home and went to sleep on his recliner. He cannot remember anything th at happened, next thing that he was clear in his mind was his granddaughter asking questions . Patient denies any chest pain, shortness of breath, headache, dizziness, confusion, fever, chills or illness prior to his syncopal episode/ amnestic event. Reports chronic right shou lder pain. Reports neck pain with movement of his legs or any part of his body. He denies any dysphagi a. ED findings: C7 fracture, leukocytosis, hypokalemia, thyroid mass, left maxillary sinus fra cture [facility] treatment: Dilaudid, morphine, cyclobenzaprine From Dr Saravia's most recent progress note: 66-year-old gentleman with past medical history of ankylosing spondylitis, diabetes mellitu s type II on insulin, history of deep vein thrombosis, iron deficiency anemia, hypertension hyperlipidemia history of transient ischemic attack who had a fall in his bathroom and was t aken to the hospital with neck pain found to have C7 fracture, left maxillary sinus fracture , enlarged left thyroid lobe suggesting goiter a large nodule and patient does not recall th e circumstances of all though he admitted that he takes morphine which might have makes him loopy and had a fall because affect. Patient underwent C3-C4, 3-5, 5-6, 6-7, C7-T1, T1-T2 posterior pedicle L mass lesion by Dr. Rivera on 09 january and postoperatively patient was intubated for airways protection and transferred to ICU and was transferred back to the floor on 11 january. Patient had a syncope workup including echocardiogram which showed normal ejection fraction ,no significant valvular abnormalities and CT neck was negative for any stenosis, aneurysm or dissection ICU Timeline: 01/12: Admitted to ICU after placement of Lumbar drain by Neurosurgery due to CSF leak 01/13: Lumbar drain remains in place with hourly drainage of 15mls of CSF 01/14: Lumbar drain in place. Working with PT daily 01/16: Lumbar Drain was leaking from the incision site. Dr. Morrison to come later toda y and put in a suture to close the leak site. 01/18: Paitent's lumbar drain in place. No acute leaks noted. Patient's drain rate reduc ed to 10cc/hr. 01-19: drain down to 5 ml/hr, ileus resolved. 01-20: drain removed. HOSPITAL COURSE: Pt had an uneventful recovery course when I took over care on 01/20 upon transferred to the surgical floor from ICU. He was still having pain of 7-8/10 upon the day of discharge. Pt do es take chronic pain meds at home. Will continue with his meds Patient was able to tolerate po intake without difficulties prior to discharge. His neck re mained immobilized on c-collar. Follow up with [facility]. C collar on at all times Avoid NSAIDs and Steroids Ok to restart anticoagulation after office visit if everything is ok at that point FU with [facility] neuroscience the week of February 01- with Xray Cervical spine in the collar a nd for suture removal Pt is of [employer] [facility] [place] [facility]. Past Medical History Diagnosis Date Ankylosing spondylitis (HCC) Diabetes mellitus, type 2 (HCC) Deep vein thrombosis (DVT) (HCC) Thyroid disease Iron deficiency anemia Testicular hypofunction Protrusio acetabuli Obesity Tachycardia Other primary thrombophilia (HCC) Antiphospholipid syndrome (HCC) Joint pain Ulcerative enterocolitis (HCC) Diverticular disease Inflamed seborrheic keratosis Vitamin D deficiency Hypertension Hyperlipidemia Seborrheic dermatitis Gout Eosinophilic colitis Autoimmune disorder (HCC) Actinic keratosis Hypokalemia Chronic serous otitis media TIA (transient ischemic attack) Tinea pedis Dermatitis Neuromuscular disorder (HCC) diabetic neuropathy Arthritis Past Surgical History Procedure Laterality Date Hip arthroplasty total left and right hip Colectomy d/t perforated diverticuli Shoulder surgery right Unlisted procedure arthroscopy Abdominal surgery Cervical fusion N/A 01/09/2017 Procedure: CERVICAL - FUSION - POSTERIOR; Surgeon: Mendez Morrison MD; Locat ion: [facility]; Service: Neurosurgery; Laterality: N/A; C3-T2 Incision and drainage posterior lumbar spine N/A 01/12/2017 Procedure: LUMBAR - DRAINAGE; Surgeon: Mendez Morrison MD; Location: [facility] IN OR; Service: Neurosurgery; Laterality: N/A; Allergies Allergen Reactions Codeine Other (See Comments) unknown Januvia [Sitagliptin] Other (See Comments) angioedema Metformin Other (See Comments) Diarrhea Penicillins Other (See Comments) unknown Rosuvastatin Other (See Comments) unknown Sulfa Antibiotics Other (See Comments) Unknown Trimethoprim Other (See Comments) unknown Prescriptions prior to admission Medication Sig Dispense Refill Last Dose allopurinol (ZYLOPRIM) 100 MG tablet Take 100 mg by mouth daily. Unknown at Unknown t yeison Cholecalciferol 2000 units CAPS Take 1 tablet by mouth. Unknown at Unknown time folic acid (FOLVITE) 1 MG tablet Take 1 mg by mouth daily. Indications: 0.5 tab by mout h q day Unknown at Unknown time hydrochlorothiazide (HYDRODIURIL) 25 MG tablet Take 25 mg by mouth daily. Indications: take 1 tab by mouth q morning for HBP Unknown at Unknown time insulin aspart (NOVOLOG) 100 UNIT/ML injection Inject into the skin 3 (three) times da blaire before meals. Indications: Inject 25 units under the skin before meals (2-3 x per day) Unknown at Unknown time insulin glargine (LANTUS) 100 UNIT/ML injection Inject into the skin nightly. Indicati ons: Inject 65 units under the skin at bedtime for diabetes Unknown at Unknown time levothyroxine (SYNTHROID) 50 MCG tablet Take 50 mcg by mouth every morning before break fast. Indications: Take 1 tab by mouth q day except take 1 and 1.5 tab twice weekly. Unkno wn at Unknown time morphine (MSIR) 15 MG tablet Take 15 mg by mouth every 4 (four) hours as needed for Reggie n. Indications: Take 1 tab by mouth q 12 hrs if needed for pain Unknown at Unknown time morphine (MSIR) 20 MG/ML concentrated solution Take 60 mg by mouth every 2 (two) hours as needed for Pain. Indications: Take 1 tab by mouth q 12 hrs if needed for pain Unknown a t Unknown time Multiple Vitamins-Minerals (MULTIVITAMIN WITH MINERALS) tablet Take 1 tablet by mouth d aily. Indications: Take 1 tab q day Unknown at Unknown time DISCHARGE EXAM Vital Signs: BP 143/68 mmHg | Pulse 80 | Temp(Src) 97.8 F (36.6 C) (Oral) | Resp 18 | Ht 1.778 m (5' 10") | Wt 106.867 kg (235 lb 9.6 oz) | BMI 33.80 kg/m2 | SpO2 99% General Appearance: encountered pt in room 410 sitting in chair eating breakfast, with pre- med student in room. No apparent distress. Conversive and appropriate to place and person. HEENT: Normocephalic, atraumatic, pupils EOMI, PERRLA. Nose: no septal deviation or dischar ge. Ears: normal size, location, and contour. Oral: moist and appropriate dentition. NECK: neck C-collar brace is noted. Cervical incision is covered with dressing intact. No s oaking of the dressing. LUNGS: clear to auscultation bilaterally with no wheezing, No rales or rhonchi audible. HEART: S1S2, Regular rate and rhythm without murmurs, gallops or rubs. ABDOMEN:Bowel sound is normoactive, abdomen is soft, non-tender non-distended ,no mass palp able. EXTREMITIES:No lower extermity edema, No clubbing or cyanosis bilaterally NEURO: Cranial Nerves 2-12 intact, Gait stable with walker observed personally, Muscle stre ngth good bilaterally, Sensation grossly intact. PSYCH: Alert, awake and Oriented x3. SKIN: No bruises, rashes, lesions, or ulcers. DATA Recent Labs Lab 01/21/17 0536 01/20/17 0409 01/16/17 0435 WBC 12.91* 12.04* < > 11.72* RBC 3.94* 3.93* < > 3.94* HGB 11.5* 11.4* < > 11.6* HCT 34.1* 34.1* < > 33.5* MCV 86.5 86.7 < > 85.0 MCH 29.2 29.1 < > 29.4 MCHC 33.8 33.5 < > 34.6 RDW 44.2 45.1 < > 44.2 PLT 282 242 < > 262 MPV 8.5 8.3 < > 7.9 NEUTOPHILPCT -- -- -- 82.46 MONOPCT -- -- -- 8.41 < > = values in this interval not displayed. Recent Labs Lab 01/22/17 0506 01/21/17 0536 NA -- -- 135 K -- -- 4.0 CL -- -- 104 CO2 -- -- 21* ANIONGAP -- -- 14 GLUF -- -- 107* BUN -- -- 7* CREATININE -- -- 0.7 BCR -- -- 10 CA -- -- 8.6 EGFR -- -- >60 PHOS 2.9 < > 2.1* MG -- -- 2.0 < > = values in this interval not displayed. No results for input(s): HGBA1C, LABGLYC in the last 168 hours. Recent Labs Lab 01/22/17 0506 INR 1.1 Recent Labs Lab 01/18/17 0425 TSH 1.78 No results for input(s): CKTOTAL, TROPONINI, TROPONINT, CKMBINDEX in the last 168 hours. No results found for: HDL, CHOL, CHOLHDL, VLDL, NONHDLCHOLVL Ct Abdomen Pelvis Without Contrast 01/17/[address] ABDOMEN PELVIS WO CONTRAST 01/17/2017 10:49 AM HISTORY: Abdomin al pain. TECHNIQUE: 5 mm axial sections were obtained through the abdomen and pelvis without IV or oral contrast. Dose reduction technique was performed using automated exposure contro l or adjustment of the mA and/or kV according to patient size. FINDINGS: No prior comparison . Evaluation is limited without contrast. There is diffuse fatty infiltration of the liver. The gallbladder appears surgically absent. The spleen is normal in size. Nasogastric tube ti p is in the stomach. No peripancreatic fluid or edema. No hydronephrosis is seen in the kidn eys. The abdominal aorta is normal in diameter without aneurysm. There are multiple dilated loops of small bowel within the midabdomen with a probable transition point in the right low er quadrant, consistent with a mid to distal small bowel obstruction. Etiology for the obstr uction could not be identified. Evaluation of the pelvis is severely limited due to artifact from bilateral hip replacements. Urinary bladder appears mildly distended. There is mild at electasis in the left lung base. 01/17/2017 1. Mid to distal small bowel obstruction, of unclear etiology. 2. Nasogastric tube tip in the stomach. 3. Mild distention of the urinary bladder. 4. Previous cholecyste ctomy. 5. Fatty liver. 6. Mild atelectasis in the left lung base. X-ray Abdomen 1 View 01/18/2017 JOSE RAFAEL WALKER 1950 XR ABDOMEN 1 VIEW 01/18/2017 6:06 AM INDICATION: Syncope and collapse, small bowel obstruction COMPARISON: CT abdomen 01/17/2017 TECHNIQUE: Abdominal series, 1 view, single AP view of the abdomen FINDINGS: Examination injected by patient nano dy habitus. Tip of the nasogastric tube is below left hemidiaphragm and is difficult to visu jose, but appears to be stable in position. Subsegmental atelectasis noted in the left lung base. 01/18/2017 1. Nasogastric tube tip is suboptimally visualized, but appears to be stable in position. 2. Subsegmental atelectasis in the left lung base. X-ray Abdomen Ap 01/17/2017 JOSE RAFAEL Vega DENISE XR ABDOMEN 1 VIEW 01/17/2017 6:00 AM HISTORY: Nasogastric tube monica cement. TECHNIQUE: One view abdomen FINDINGS: Compared with 01/09/2017 at 0159 hours. The hao ogastric tube tip is in the stomach. There is a prominent gas noted within the transverse co cindy. 01/17/2017 1. Nasogastric tube tip in the stomach. Xr Abdomen 1 View 01/17/2017 EXAM: ABDOMEN RADIOGRAPHY EXAM DATE: 01/17/2017 02:41 AM. CLINICAL HISTORY: Abdo daphne pain. COMPARISON: 01/16/2017. TECHNIQUE: 1 view. FINDINGS: Bowel Gas Pattern: Possib le dilated small bowel in the lower abdomen. Other: Previous bilateral hip replacements. 01/17/2017 Cannot exclude small bowel obstruction on this suboptimal supine view. If there is clinical concern for obstruction, consider CT. [facility]IA Electronically signed by Williams armendariz MD on Jan 17 2017 3:17AM Referring Provider Line: [phone] ID: [id number] Xr Abdomen 1 View 01/16/2017 EXAM: ABDOMEN RADIOGRAPHY EXAM DATE: 01/16/2017 02:43 AM. CLINICAL HISTORY: Cons tipation. COMPARISON: None. TECHNIQUE: 1 view. FINDINGS: Bowel Gas Pattern: Within normal limits. No dilated loops. Other: Previous bilateral hip replacements. 01/16/2017 Grossly negative supine 1-view abdomen x-ray. RADIA Electronically signed by Rich Cooper MD on Jan 16 2017 3:10AM Referring Provider Line: [phone] ID: [id number] Ct Cervical Spine Without Contrast 01/16/2017 EXAM: CT CERVICAL SPINE WITHOUT CONTRAST DATE: 01/16/2017 03:35 AM HISTORY: Neck pain, trauma. COMPARISONS: Cervical spine CT from 01/12/2017. TECHNIQUE: Thin-section axial images were acquired of the cervical spine without contrast. Post-processing: Coronal and sa gittal reformats. Other: None. In accordance with CT protocol optimization, one or more of t lynda following dose reduction techniques were utilized for this exam: automated exposure contr ol, adjustment of mA and/or KV based on patient size, or use of iterative reconstructive liu hnique. FINDINGS: Alignment: Spinal alignment is unchanged. Bones: Diffuse ankylosis is agai n demonstrated from the craniocervical junction to the visualized upper thoracic region. The fracture through the C6-C7 disk space extending to the bilateral facet joints is stable in appearance. Posterior spinal fusion from C3-T2 is unchanged in position. Of note, the right C7 screw continues to traverse the superior aspect of its foramen and the right T1-T2 pedicl e screw also traverses its respective foramen. No interval change in hardware alignment is s een. Interspace Levels/Facets: No interval development of spinal canal or foraminal stenosis is appreciated. Musculature: Postsurgical changes are noted in the dorsal soft tissues from recent surgery. Other: A prominent left thyroid lobe is again noted. The visualized lung ap ices are clear. 01/16/2017 1. Stable spinal alignment, status post posterior spine fusion from C3-T2 compar ed to the cervical spine CT from 01/12/2017. 2. Ankylosing spondylitis. RADIA Electronicall y signed by Yenifer Marie MD on Jan 16 2017 5:20AM Referring Provider Line: [phone] ID: [id number] PLAN Discharge to home with cousin in stable condition. Code Status: Full Code No discharge procedures on file. Follow up: [facility] [address] [place], [place] [id number] Follow up on 01/25/2017 [facility] [place] coming to your home for the first home health appointment on either Thursday 01/25 or Friday 01/26. They should be calling you on Wednesday to schedule. Pl ease call them Wednesday afternoon if you have not heard [place] [id number] [address] [place] [id number] In 1 week [facility] [address] [place] [phone] On 02/01/2017 xray C-spine and suture removal. Medication List START taking these medications DSS 100 MG Caps QTY: 30 capsule Refills: 0 Take 100 mg by mouth daily. polyethylene glycol packet QTY: 14 each Refills: 0 Commonly known as: GLYCOLAX Take 17 g by mouth daily as needed. CHANGE how you take these medications lisinopril 20 MG tablet QTY: 30 tablet Refills: 0 Commonly known as: ZESTRIL Take 1 tablet by mouth daily. What changed: - medication strength - how much to take CONTINUE taking these medications allopurinol 100 MG tablet Refills: 0 Commonly known as: ZYLOPRIM Notes to Patient: Continue on home schedule Cholecalciferol 2000 units Caps Refills: 0 Notes to Patient: Continue on home schedule folic acid 1 MG tablet Refills: 0 Commonly known as: FOLVITE Notes to Patient: Continue on home schedule hydrochlorothiazide 25 MG tablet Refills: 0 Commonly known as: HYDRODIURIL Notes to Patient: Continue on home schedule insulin aspart 100 UNIT/ML injection Refills: 0 Commonly known as: NOVOLOG Notes to Patient: Continue on home schedule insulin glargine 100 UNIT/ML injection Refills: 0 Commonly known as: LANTUS Notes to Patient: Continue on home schedule levothyroxine 50 MCG tablet Refills: 0 Commonly known as: SYNTHROID Notes to Patient: Continue on home schedule * morphine 15 MG tablet Refills: 0 Commonly known as: MSIR Notes to Patient: Continue on home schedule * morphine 20 MG/ML concentrated solution Refills: 0 Commonly known as: MSIR Notes to Patient: Continue on home schedule multivitamin with minerals tablet Refills: 0 Notes to Patient: Continue on home schedule * Notice: This list has 2 medication(s) that are the same as other medications prescribed for you. Read the directions carefully, and ask your doctor or other care provider to revie w them with you. STOP taking these medications clindamycin 300 MG capsule Commonly known as: CLEOCIN warfarin 6 MG tablet Commonly known as: COUMADIN Where to Get Your Medications You can get these medications from any pharmacy Bring a paper prescription for each of these medications - DSS 100 MG Caps - lisinopril 20 MG tablet - polyethylene glycol packet Discharge took 58 minutes, to include final examination, discussion of admission, and prepa ration of prescriptions, instructions for on-going care, follow-up and documentation of disc harge summary. Jimi Mauricio MD 01/22/2017 Jonathan townsend in this encounter Medications at Time of [...] documented as of this encounter Progress Notes Conversion Transaction, Provider Unknown - 01/22/2017 2:29 PM PDTFormatting of this note m ight be different from the original. Nurse Progress Note by Aby Del Castillo RN at 01/22/17 142 Author: Aby Del Castillo RN Service: (none) Author Type: Registered Nurse Filed: 01/22/17 1431 Date of Service: 01/22/171428 Status: Signed Food Service Helper: Aby Del Castillo RN (Registered Nurse) Discharge instructions and prescriptions given to patient and patient states understanding and has no further questions at this time. Patient states understanding regarding follow up with surgeon and home health. Patient will discharge to home via private vehicle accompanied by family. onhomar echeverria Transaction, Provider Unknown - 01/22/2017 12:04 PM PDT Case Management by Ed Elder RN at 01/22/17 1204 Author: Ed Elder RN Service: (none) Author Type: Registered Nurse Filed: 01/22/17 1205 Date of Service: 01/22/17 1204 Status: Addendum Food Service Helper: Ed Elder RN (Registered Nurse) Related Notes: Original Note by Ed Elder RN (Registered Nurse) filed at 01/22/17 12 01/22/17 1203 Anticipated Disposition Facility Type Home health care;Home Disposition: Home with [facility]. I spoke with Rea at [facility] and she confirmed she received the clinical and [id number]. They will call the pt Wednesday to schedule first appointment - pt given this info and in agreement. Transportation: Family to transport home Patient and family in agreement with discharge plan Medicare important message (Given or N/A): Yes ED ELDER Harlan echeverria Transaction, Provider Unknown - 01/22/2017 9:42 AM PDT Case Management by Ed Elder RN at 01/22/17 0942 Author: Ed Elder RN Service: (none) Author Type: Registered Nurse Filed: 01/22/17950 Date of Service: 01/22/17941 Status: Addendum Food Service Helper: Ed Elder RN (Registered Nurse) Related Notes: Original Note by Ed Elder RN (Registered Nurse) filed at 01/22/17 44 Discharge planning: CM spoke with Rea ([phone]) at [facility] in [facility] and she states they will be able to admit this patient for home health services. Cl inical and [id number] faxed to them at this time. She states they will be able to see him for his first appointment on either Wednesday or Wednesday of next week. CM will continue to fo llow and will notify Rea once discharge date is known. Pt's granddaughter is his caregiv er and will be assisting him at home with his needs. Harlan echeverria Transaction, Provider Unknown - 01/22/2017 6:58 AM PDT Therapy Progress Note by HOLLY Mcrae/Ayesha at 01/22/17 06 Author: JOZEF Mcrae Service: (none) Author Type: Occupational Therapist Filed: 01/22/17 1328 Date of Service: 01/22/17657 Status: Signed Food Service Helper: JOZEF Mcrae (Occupational Therapist) 01/22/17657 OT Last Visit OT Received On 01/22/17 Reason for Treatment Other (comment) (Cervical fracture) Requires OT Follow Up No OT Eval/Reassessment Date 01/22/17 (OT reassess) Assistance Required 1 person Training Development Director Needed No Family/Caregiver Present No Precautions Spinal Precautions Cervical;Cervical collar on when upright Other Precautions HOB elevated Other Comments Comments Pt found supine in bed and willing to participate in session. OTS Pt aware of OTS participation/observation under direct supervision of OTR. Pt participated in activities inc luding mobility and ADLs (LE dressing, brushing teeth). Reviewed AE use. Pt left sitting upr ight in chair. Plan to return home, granddaughter as caregiver. Pt had no further concerns/q uestions, therefore, discontinue OT services. Grooming Grooming Level of Assistance Independent Grooming Where Assessed Standing sinkside Grooming Comments With use of FWW, pt able to independently complete brushing teeth at sink in standing LE Dressing LE Dressing Yes LE Dressing Adaptive Equipment Low Pressure Firer LE Dressing Comments Pt able to don pants in standing with supervision using station chief to gra b pants, and received cueing for technique. Educated pt on sitting to avoid falling during L E dressing. Additional Activities Additional Activities Comments Anticipate discharge with family support when medically read y (Pt reports family member who lives close by) Activity Tolerance Activity Tolerance Patient tolerated treatment well (Pt requested to ambulate, completed one loop around) Safety Devices Safety Devices in Place Yes Type of Devices Call lite in place Plan Treatment Interventions Other (comment) (Per OT POC) Progress Discontinue OT Recommendation Recommendation Return to prior living conditions Equipment Recommended Other (comment) (Has AE needs) OT Ready for Discharge Yes Education Completed: Education Topic: ADLs, review restrictions Completed with: Patient Completed by: Verbal Education, Demonstration Response to Education: Stated Understanding, Returned Demonstration OT/S, Rea Norman present and participating as directed per OTR this date in care of the pa landon. The patient was aware and in agreement with the student's participation in the care p maribel on this date. Jose rios, Mendez Nicoel MD - 01/21/2017 12:20 PM PDT Progress Notes by Mendez Morrison MD at 01/21/17 1220 Author: Mendez Morrison MD Service: Neurosurgery Author Type: Physician Filed: 01/21/17 9076 Date of Service: 01/21/17 1220 Status: Signed Food Service Helper: Mendez Morrison MD (Physician) [facility] Service: Neurosurgery Progress Note Hospital Day: LOS: 14 days Post-Op Day: 9 Days Post-Op Surgery/Procedure: Procedure(s) (LRB): LUMBAR - DRAINAGE (N/A) SUBJECTIVE Patient Summary: Doing fine, Walking with PT Events Overnight: No acute events Scheduled Medications allopurinol 100 mg Oral Daily calcium carbonate-vitamin D 1 tablet Oral BID WC carbamide peroxide 10 drop Both Ears BID docusate sodium 100 mg Oral Daily famotidine 20 mg Oral Nightly heparin (porcine) 5000 unit/0.5mL 5,000 Units Subcutaneous 3 times per day hydrochlorothiazide 25 mg Oral Daily insulin detemir 20 Units Subcutaneous BID insulin lispro (human) 0-10 Units Subcutaneous TID AC insulin lispro (human) 0-5 Units Subcutaneous Nightly insulin lispro (human) 6 Units Subcutaneous TID AC levothyroxine 50 mcg Oral QAM AC lisinopril 20 mg Oral Daily oxyCODONE 10 mg Oral 2 times per day sodium chloride 10 mL Intravenous 2 times per day sodium chloride 1 g Oral TID WC sodium phosphate 30 mmol Intravenous Once zinc sulfate 220 mg Oral Daily Continuous Infusions dextrose dextrose PRN Medications acetaminophen OR acetaminophen, benzocaine-menthol, zhvlplucny-jxaksjumewqxz-hoapikvp, carboxymethylcellulose, cyclobenzaprine, dextrose, dextrose, dextrose, dextrose, docusate so dium OR docusate, glucagon, glucagon, hydrALAZINE, HYDROmorphone OR HYDROmorphone, n ystatin, nystatin, ondansetron OR ondansetron, petrolatum, polyethylene glycol, simethic one, sodium chloride, traMADol OBJECTIVE Vital Signs: BP 158/74 mmHg | Pulse 91 | Temp(Src) 97.8 F (36.6 C) (Oral) | Resp 18 | Ht 1.778 m (5' 10") | Wt 110.3 kg (243 lb 2.7 oz) | BMI 34.89 kg/m2 | SpO2 98% General appearance: alert, appears stated age and cooperative. Head: Normocephalic and atraumatic. Eyes: conjunctivae/corneas clear. PERRL, EOM's intact. Neck: no JVD, supple, symmetrical, trachea midline Extremities: extremities normal, atraumatic, no cyanosis or edema Neurologic: Alert and oriented X 3, GCS 15, Speech is fluent. PERRLA, EOMI, Face symmetric al, Facial sensation intact to LT. Hearing is Functional. Palate is symmetrical. Shoulder s hrug is symmetrical. Tongue is midline, no fasciculations or atrophy. Strength is full, to ne is normal, no drift, symmetric reflexes. Plantars are flexor, no Chaney's. Sensation is intact to touch. There is no tremor. Gait was not tested. DATA Recent Labs Lab 01/21/1753501/20/17 0409 01/19/17 0355 WBC 12.91* 12.04* 9.45 RBC 3.94* 3.93* 3.71* HGB 11.5* 11.4* 10.7* HCT 34.1* 34.1* 32.1* MCV 86.5 86.7 86.4 MCH 29.2 29.1 28.9 MCHC 33.8 33.5 33.4 RDW 44.2 45.1 45.5 PLT 282 242 244 MPV 8.5 8.3 8.2 DIFFTYPE MANUAL MANUAL MANUAL Results Procedure Component Value Units Date/Time POCT glucose [[id number]] (Abnormal) Collected: 01/21/17 1124 GLUCOSE,POC SCREEN 174 (H) mg/dL Updated: 01/21/17 1129 Basic metabolic panel [[id number]] (Abnormal) Collected: 01/21/17535 Specimen Information: Blood Updated: 01/21/17 07 SODIUM 135 mmol/L POTASSIUM 4.0 mmol/L CHLORIDE 104 mmol/L CO2 21 (L) mmol/L ANION GAP AGAP 14 mmol/L GLUCOSE 107 (H) mg/dL BUN 7 (L) mg/dL CREATININE 0.7 mg/dL BUN/CREAT 10 CALCIUM 8.6 mg/dL EGFR >60 mL/min/1.73m2 Magnesium [[id number]] Collected: 01/21/17535 Specimen Information: Blood Updated: 01/21/17 0705 MAGNESIUM 2.0 mg/dL Phosphorus [[id number]] (Abnormal) Collected: 01/21/17535 Specimen Information: Blood Updated: 01/21/17704 PHOSPHORUS 2.1 (L) mg/dL CBC w/auto diff (reflex to manual) [[id number]] (Abnormal) Collected: 01/21/1736 Specimen Information: Blood Updated: 01/21/17 0704 WBC 12.91 (H) K/uL RBC 3.94 (L) M/uL HGB 11.5 (L) g/dL HCT 34.1 (L) % MCV 86.5 fl MCH 29.2 pg MCHC 33.8 g/dL RDW SD 44.2 fl PLT 282 K/uL MPV 8.5 fl DIFF TYPE MANUAL Neutrophils Manual 62 % Bands 8 % METAMYELOCYTES 3 % MYELOCYTES 2 % Lymphocytes Manual 16 % Monocytes Manual 6 % Eosinophils Manual 3 % Neutrophils Absolute 8.00 (H) K/uL Bands Manual 1.03 (H) K/uL Metamyelocytes Absolute 0.39 (H) K/uL Myelocytes Absolute 0.26 (H) K/uL Lymphocytes Absolute 2.07 K/uL Monocytes Absolute 0.77 K/uL Eosinophils Absolute 0.39 K/uL MORPHOLOGY RBC AND PLT MORPHOLOGY APPEAR NORMAL Protime-INR [[id number]] Collected: 01/21/17535 Specimen Information: Blood Updated: 01/21/17 0631 INR 1.1 POCT glucose [[id number]] (Abnormal) Collected: 01/21/17 0525 GLUCOSE,POC SCREEN 117 (H) mg/dL Updated: 01/21/17 0533 POCT glucose [[id number]] (Abnormal) Collected: 01/20/17 2147 GLUCOSE,POC SCREEN 130 (H) mg/dL Updated: 01/20/17 2203 POCT glucose [[id number]] Collected: 01/20/17 1644 GLUCOSE,POC SCREEN 89 mg/dL Updated: 01/20/17 1856 POCT glucose [[id number]] (Abnormal) Collected: 01/20/17 1204 GLUCOSE,POC SCREEN 103 (H) mg/dL Updated: 01/20/17 1856 POCT glucose [[id number]] (Abnormal) Collected: 01/20/17 1020 GLUCOSE,POC SCREEN 121 (H) mg/dL Updated: 01/20/17 185 CBC w/auto diff (reflex to manual) [[id number]] (Abnormal) Collected: 01/20/17 0409 Specimen Information: Blood Updated: 01/20/17 0612 WBC 12.04 (H) K/uL RBC 3.93 (L) M/uL HGB 11.4 (L) g/dL HCT 34.1 (L) % MCV 86.7 fl MCH 29.1 pg MCHC 33.5 g/dL RDW SD 45.1 fl PLT 242 K/uL MPV 8.3 fl DIFF TYPE MANUAL Neutrophils Manual 59 % Bands 10 % METAMYELOCYTES 4 % MYELOCYTES 1 % Lymphocytes Manual 11 % Monocytes Manual 11 % Eosinophils Manual 4 % Neutrophils Absolute 7.12 K/uL Bands Manual 1.20 (H) K/uL Metamyelocytes Absolute 0.48 (H) K/uL Myelocytes Absolute 0.12 (H) K/uL Lymphocytes Absolute 1.32 K/uL Monocytes Absolute 1.32 (H) K/uL Eosinophils Absolute 0.48 K/uL MORPHOLOGY RBC AND PLT MORPHOLOGY APPEAR NORMAL POCT glucose [[id number]] Collected: 01/20/17 0555 GLUCOSE,POC SCREEN 78 mg/dL Updated: 01/20/17599 POCT glucose [[id number]] (Abnormal) Collected: 01/19/17 2351 GLUCOSE,POC SCREEN 125 (H) mg/dL Updated: 01/20/17599 POCT glucose [[id number]] (Abnormal) Collected: 01/19/17 2136 GLUCOSE,POC SCREEN 136 (H) mg/dL Updated: 01/20/17599 Basic metabolic panel [[id number]] (Abnormal) Collected: 01/20/17408 Specimen Information: Blood Updated: 01/20/17528 SODIUM 138 mmol/L POTASSIUM 4.1 mmol/L CHLORIDE 108 mmol/L CO2 20 (L) mmol/L ANION GAP AGAP 14 mmol/L GLUCOSE 74 mg/dL BUN 14 mg/dL CREATININE 0.8 mg/dL BUN/CREAT 18 CALCIUM 8.6 mg/dL EGFR >60 mL/min/1.73m2 Magnesium [[id number]] Collected: 01/20/17408 Specimen Information: Blood Updated: 01/20/17528 MAGNESIUM 2.2 mg/dL Phosphorus [[id number]] Collected: 01/20/17408 Specimen Information: Blood Updated: 01/20/17528 PHOSPHORUS 3.6 mg/dL Protime-INR [[id number]] Collected: 01/20/17408 Specimen Information: Blood Updated: 01/20/17 0500 INR 1.1 POCT glucose [[id number]] (Abnormal) Collected: 01/19/17 1905 GLUCOSE,POC SCREEN 118 (H) mg/dL Updated: 01/19/17 1908 POCT glucose [[id number]] (Abnormal) Collected: 01/19/17 1746 GLUCOSE,POC SCREEN 107 (H) mg/dL Updated: 01/19/17 1751 Potassium [[id number]] (Abnormal) Collected: 01/19/17 142 Specimen Information: Blood Updated: 01/19/17 1452 POTASSIUM 3.1 (L) mmol/L Magnesium [[id number]] Collected: 01/19/171421 Specimen Information: Blood Updated: 01/19/17 1452 MAGNESIUM 2.0 mg/dL Phosphorus [[id number]] (Abnormal) Collected: 01/19/171421 Specimen Information: Blood Updated: 01/19/17 1452 PHOSPHORUS 1.4 (L) mg/dL POCT glucose [[id number]] (Abnormal) Collected: 01/19/17 1205 GLUCOSE,POC SCREEN 146 (H) mg/dL Updated: 01/19/17 1421 POCT glucose [[id number]] (Abnormal) Collected: 01/19/17 0605 GLUCOSE,POC SCREEN 136 (H) mg/dL Updated: 01/19/17 0630 CBC w/auto diff (reflex to manual) [[id number]] (Abnormal) Collected: 01/19/17354 Specimen Information: Blood Updated: 01/19/17 0533 WBC 9.45 K/uL RBC 3.71 (L) M/uL HGB 10.7 (L) g/dL HCT 32.1 (L) % MCV 86.4 fl MCH 28.9 pg MCHC 33.4 g/dL RDW SD 45.5 fl PLT 244 K/uL MPV 8.2 fl DIFF TYPE MANUAL Neutrophils Manual 67 % Bands 6 % Lymphocytes Manual 16 % Monocytes Manual 9 % Eosinophils Manual 2 % Neutrophils Absolute 6.33 K/uL Bands Manual 0.57 (H) K/uL Lymphocytes Absolute 1.51 K/uL Monocytes Absolute 0.85 (H) K/uL Eosinophils Absolute 0.19 K/uL MORPHOLOGY RBC AND PLT MORPHOLOGY APPEAR NORMAL Basic metabolic panel [[id number]] (Abnormal) Collected: 01/19/17354 Specimen Information: Blood Updated: 05/30/17 0458 SODIUM 139 mmol/L POTASSIUM 3.4 (L) mmol/L CHLORIDE 103 mmol/L CO2 25 mmol/L ANION GAP AGAP 14 mmol/L GLUCOSE 144 (H) mg/dL BUN 22 mg/dL CREATININE 0.7 mg/dL BUN/CREAT 31 CALCIUM 7.7 (L) mg/dL EGFR >60 mL/min/1.73m2 Magnesium [[id number]] Collected: 01/19/17354 Specimen Information: Blood Updated: 01/19/17457 MAGNESIUM 2.1 mg/dL Phosphorus [[id number]] (Abnormal) Collected: 01/19/17354 Specimen Information: Blood Updated: 01/19/17457 PHOSPHORUS 2.2 (L) mg/dL Protime-INR [[id number]] Collected: 01/19/17354 Specimen Information: Blood Updated: 01/19/17419 INR 1.1 POCT glucose [[id number]] (Abnormal) Collected: 01/18/17 2135 GLUCOSE,POC SCREEN 121 (H) mg/dL Updated: 01/18/17 2150 POCT glucose [[id number]] (Abnormal) Collected: 01/18/17 1704 GLUCOSE,POC SCREEN 178 (H) mg/dL Updated: 01/18/17 1740 POCT glucose [[id number]] (Abnormal) Collected: 01/18/17 0927 GLUCOSE,POC SCREEN 152 (H) mg/dL Updated: 01/18/17 1740 Magnesium [[id number]] Collected: 01/18/171706 Specimen Information: Blood Updated: 01/18/17 1736 MAGNESIUM 2.2 mg/dL Phosphorus [[id number]] (Abnormal) Collected: 01/18/171706 Specimen Information: Blood Updated: 01/18/176 PHOSPHORUS 1.6 (L) mg/dL Potassium [[id number]] Collected: 01/18/171706 Specimen Information: Blood Updated: 01/18/17 1736 POTASSIUM 3.7 mmol/L Recent Labs Lab 01/21/17 0536 01/20/17 0409 01/19/[address]en Pelvis Without Contrast 01/17/2017 1. Mid to distal small bowel obstruction, of unclear etiology. 2. Nasogastric tube tip in the stomach. 3. Mild distention of the urinary bladder. 4. Previous cholecyste ctomy. 5. Fatty liver. 6. Mild atelectasis in the left lung base. X-ray Abdomen 1 View 01/18/2017 1. Nasogastric tube tip is suboptimally visualized, but appears to be stable in position. 2. Subsegmental atelectasis in the left lung base. X-ray Abdomen Ap 01/17/2017 1. Nasogastric tube tip in the stomach. Xr Abdomen 1 View 01/17/2017 Cannot exclude small bowel obstruction on this suboptimal supine view. If there is clinical concern for obstruction, consider CT. [facility]IA Electronically signed by Williams armendariz MD on Jan 17 2017 3:17AM Referring Provider Line: [phone] ID: [id number] Xr Abdomen 1 View 01/16/2017 Grossly negative supine 1-view abdomen x-ray. [facility]IA Electronically signed by Rich Cooper MD on Jan 16 2017 3:10AM Referring Provider Line: [phone] ID: [id number] Ct Cervical Spine Without Contrast 01/16/2017 1. Stable spinal alignment, status post posterior spine fusion from C3-T2 compar ed to the cervical spine CT from 01/12/2017. 2. Ankylosing spondylitis. RADIA Electronicall y signed by Yenifer Marie MD on Jan 16 2017 5:20AM Referring Provider Line: [phone] ID: [id number] PROBLEM LIST Principal Problem: Closed nondisplaced fracture of seventh cervical vertebra (HCC) Active Problems: Maxillary fracture, left side, initial encounter for open fracture Antiphospholipid syndrome (HCC) Controlled type 2 diabetes mellitus with hyperglycemia (HCC) Syncope and collapse Thyroid mass CSF leak Non morbid obesity ASSESSMENT & PLAN POD 12 C3-T 2 fusion POD 9 Lumbar drain placement and removal yesterday for CSF leak Wound dry Ambulating with PT Left arm pain improving OK to DC home when cleared by PT Ok to shower C collar on at all times Avoid NSAIDs and Steroids Ok to restart anticoagulation after office visit if everything is ok at that point FU with [facility] neuroscience the week of February 01 with Xray Cervical spine in the collar a nd for suture removal Disposition: Home Code Status: Full Code Mendez Morrison MD 01/21/2017 12:20 PM onversio n Transaction, Provider Unknown - 01/21/2017 12:18 PM PDTFormatting of this note might be di fferent from the original. Therapy Progress Note by REGINALDO Kaiser at 01/21/17 1218 Author: REGINALDO Kaiser Service: (none) Author Type: Massage Therapist Filed: 01/21/17 1218 Date of Service: 01/21/178 Status: Signed Food Service Helper: REGINALDO Kaiser (Massage Therapist) 01/21/17 1129 Massage Therapy Interventions Locations Back;Shoulder;RLE;LLE;Feet Massage Therapy Technique Effleurage;Petrissage;Trigger point Response to treatment Decreased pain;Decreased muscle tension Pain Screening Currently in Pain Yes Pain Assessment 0-10 Pain Score 4 onver jacki Transaction, Provider Unknown - 01/21/2017 11:49 AM PDT Case Management by Natasha Bright RN at 01/21/17 1149 Author: Natasha Bright RN Service: (none) Author Type: Registered Nurse Filed: 01/21/17 1153 Date of Service: 01/21/17 1149 Status: Signed Food Service Helper: Natasha Bright RN (Registered Nurse) 01/21/17 1147 Discharge Planning Evaluation Admitting Diagnosis Vertebra fx Readmission No Living Arrangements Alone Support Systems Children Type of Residence Private residence Independent with ADL's Yes Independent with Mobility Yes Caregiver after Discharge Yes Caregiver Name Di Relationship to Patient granddaughter Power of Tax Economist Name yes Power of Tax Economist Anticipated Discharge Plan Post Acute Care Needs None at this time Plan communicated to patient/family Yes Resources Financial concerns No Patient/Family concerns No Prescription Plan Yes Previous home health equipment Yes (walker) Anticipated Disposition Facility Type Home health [facility] ([facility]) Met with patient and discussed discharge planning, Pt is a 66 y.o., male with a vertebrae f racture. He lives at home alone on the [address] ([facility]) outside of [place], [place] . He stated his granddaughter is his 24 hour paid caregiver. He has a walker at home. PT has recommended home health PT; CM is faxing over patient info to establish this at [facility] in [place] ([phone]) as [facility] is full & deferring all of their referrals to . Patient's PCP is: Scooby Mcclure [place] Coverage concerns: no Medication coverage/concerns: no Rx Bedside Delivery: yes Community resources utilized / needed: TBD Assistance in transportation: TBD Identification of any specific education / training: TBD Barriers to Discharge / Alternative housing needed: home health PT Anticipated DCP: home with home health PT ([facility]) Natasha Bright [phone] Devaughn Corcoran MD - 01/21/2017 11:42 AM PDTFormatting of this note might be different from john iraheta. Progress Notes by Jimi Mauricio MD at 01/21/17 1142 Author: Jimi Mauricio MD Service: Hospitalist Author Type: Physician Filed: 01/21/17 1203 Date of Service: 01/21/17 1142 Status: Signed Food Service Helper: Jimi Mauricio MD (Physician) [facility] Service: Hospitalist Progress Note Hospital Day: LOS: 14 days Post-Op Day: 9 Days Post-Op SUBJECTIVE Patient Summary: From Dr Dumont's H&P: The patient is a 66 y.o. male with significant past medical history of ankylosing spondylit is, diabetes type II, deep vein thrombosis, iron deficiency anemia, testicular hypofunction, obesity, hypertension, dyslipidemia, abdomen disorder, transient ischemic attack, non ambul atory ankylosing spondylitis, who presents to transfer from [facility] with a C7 fracture, left maxillary sinus fracture, thyroid mass and syncope. [facility] left sided face swelling, neck pain, confusion and difficulty remembe ring anything. Per history, patient woke up in a chair, went into the bathroom and found thi ngs in disarray. Granddaughter was then notified by neighbors that they heard a crashing berta nd earlier around 1:30. During the day patient had being a but was in the his usual state of health, came home and went to sleep on his recliner. He cannot remember anything th at happened, next thing that he was clear in his mind was his granddaughter asking questions . Patient denies any chest pain, shortness of breath, headache, dizziness, confusion, fever, chills or illness prior to his syncopal episode/ amnestic event. Reports chronic right shou lder pain. Reports neck pain with movement of his legs or any part of his body. He denies any dysphagi a. ED findings: C7 fracture, leukocytosis, hypokalemia, thyroid mass, left maxillary sinus fra cture [facility] ED treatment: Dilaudid, morphine, cyclobenzaprine From Dr Saravia's most recent progress note: 66-year-old gentleman with past medical history of ankylosing spondylitis, diabetes mellitu s type II on insulin, history of deep vein thrombosis, iron deficiency anemia, hypertension hyperlipidemia history of transient ischemic attack who had a fall in his bathroom and was t aken to the hospital with neck pain found to have C7 fracture, left maxillary sinus fracture , enlarged left thyroid lobe suggesting goiter a large nodule and patient does not recall th e circumstances of all though he admitted that he takes morphine which might have makes him loopy and had a fall because affect. Patient underwent C3-C4, 3-5, 5-6, 6-7, C7-T1, T1-T2 posterior pedicle L mass lesion by Dr. Rivera on 09 january and postoperatively patient was intubated for airways protection and transferred to ICU and was transferred back to the floor on 11 january. Patient had a syncope workup including echocardiogram which showed normal ejection fraction ,no significant valvular abnormalities and CT neck was negative for any stenosis, aneurysm or dissection ICU Timeline: 01/12: Admitted to ICU after placement of Lumbar drain by Neurosurgery due to CSF leak 01/13: Lumbar drain remains in place with hourly drainage of 15mls of CSF 01/14: Lumbar drain in place. Working with PT daily 01/16: Lumbar Drain was leaking from the incision site. Dr. Morrison to come later toda y and put in a suture to close the leak site. 01/18: Paitent's lumbar drain in place. No acute leaks noted. Patient's drain rate reduc ed to 10cc/hr. 01-19: drain down to 5 ml/hr, ileus resolved. 01-20: drain removed. Events Overnight: 01/21: Patient complain of some pain as well and the neck around 7/10. Patient appears to be tolerating it at this time. ROS: 12 point ROS reviewed and negative other than above. Scheduled Medications allopurinol 100 mg Oral Daily calcium carbonate-vitamin D 1 tablet Oral BID WC carbamide peroxide 10 drop Both Ears BID docusate sodium 100 mg Oral Daily famotidine 20 mg Oral Nightly heparin (porcine) 5000 unit/0.5mL 5,000 Units Subcutaneous 3 times per day hydrochlorothiazide 25 mg Oral Daily insulin detemir 20 Units Subcutaneous BID insulin lispro (human) 0-10 Units Subcutaneous TID AC insulin lispro (human) 0-5 Units Subcutaneous Nightly insulin lispro (human) 6 Units Subcutaneous TID AC levothyroxine 50 mcg Oral QAM AC lisinopril 20 mg Oral Daily sodium chloride 10 mL Intravenous 2 times per day sodium chloride 1 g Oral TID WC zinc sulfate 220 mg Oral Daily Continuous Infusions dextrose dextrose PRN Medications acetaminophen OR acetaminophen, benzocaine-menthol, bisacodyl, butalbital-acetaminophen -caffeine, carboxymethylcellulose, cyclobenzaprine, dextrose, dextrose, dextrose, dextrose, docusate sodium OR docusate, glucagon, glucagon, hydrALAZINE, HYDROmorphone OR HYDRO morphone, lactulose, magnesium sulfate OR magnesium sulfate OR magnesium sulfate, ny statin, nystatin, ondansetron OR ondansetron, petrolatum, phosphorus OR sodium phosp hate IVPB 20 mmol OR sodium phosphate IVPB 45 mmol, polyethylene glycol, potassium OR* * potassium OR potassium OR potassium chloride OR potassium chloride OR pota ssium chloride, simethicone, sodium chloride, traMADol OBJECTIVE Vital Signs: BP 158/74 mmHg | Pulse 91 | Temp(Src) 97.8 F (36.6 C) (Oral) | Resp 18 | Ht 1.778 m (5' 10") | Wt 110.3 kg (243 lb 2.7 oz) | BMI 34.89 kg/m2 | SpO2 98% Physical Exam: General Appearance: patient sitting in recliner in room 430 comfortable. No apparent distre ss. Conversive and appropriate to place and person. HEENT: Normocephalic, atraumatic, pupils EOMI, PERRLA. Nose: no septal deviation or dischar ge noted. Ears: normal size, location, and contour. Throat dry and without exudates. NECK: aspen. Neck brace is noted. LUNGS: relatively clear to auscultation bilaterally with no obvious wheezing, No rales or r honchi audible. HEART: S1S2, Regular rate and rhythm without murmurs, gallops or rubs. ABDOMEN: Bowel sound is normoactive, abdomen is soft, non-tender non-distended ,no mass pal pable. EXTREMITIES: Bilateral lower extermity edema is noted., Muscle strength adequate bilaterall y. NEURO: Cranial Nerves 2-12 appears intact, Gait not tested, PSYCH: Alert, awake and Oriente d x3. SKIN: No significant bruises, rashes, lesions, or ulcers. DATA Recent Labs Lab 01/21/1753501/20/1740801/19/17 0355 WBC 12.91* 12.04* 9.45 RBC 3.94* 3.93* 3.71* HCT 34.1* 34.1* 32.1* MCV 86.5 86.7 86.4 MCH 29.2 29.1 28.9 MCHC 33.8 33.5 33.4 RDW 44.2 45.1 45.5 PLT 282 242 244 MPV 8.5 8.3 8.2 DIFFTYPE MANUAL MANUAL MANUAL Recent Labs Lab 01/21/1753501/20/1740801/19/17 1422 01/19/17 0355 K 4.0 4.1 3.1* 3.4* CL 104 108 -- 103 CO2 21* 20* -- 25 ANIONGAP 14 14 -- 14 GLUF 107* 74 -- 144* BUN 7* 14 -- 22 CREATININE 0.7 0.8 -- 0.7 BCR 10 18 -- 31 CA 8.6 8.6 -- 7.7* EGFR >60 >60 -- >60 BMP: Recent Labs Lab 01/21/17 0536 01/20/17 0409 01/19/17 1422 01/19/17 0355 NA 135 138 -- 139 K 4.0 4.1 3.1* 3.4* CL 104 108 -- 103 CO2 21* 20* -- 25 ANIONGAP 14 14 -- 14 GLUF 107* 74 -- 144* BUN 7* 14 -- 22 CREATININE 0.7 0.8 -- 0.7 BCR 10 18 -- 31 CA 8.6 8.6 -- 7.7* EGFR >60 >60 -- >60 Recent Labs Lab 01/21/1736 01/20/17 0409 01/19/17 1422 MG 2.0 2.2 2.0 Recent Labs Lab 01/21/1736 01/20/17 0409 01/19/17 0355 INR 1.1 1.1 1.1 No results for input(s): CKTOTAL, TROPONINI, TROPONINT, CKMBINDEX in the last [address] Abdomen Pelvis Without Contrast 01/17/[address] ABDOMEN PELVIS WO CONTRAST 01/17/2017 10:49 AM HISTORY: Abdomin al pain. TECHNIQUE: 5 mm axial sections were obtained through the abdomen and pelvis without IV or oral contrast. Dose reduction technique was performed using automated exposure contro l or adjustment of the mA and/or kV according to patient size. FINDINGS: No prior comparison . Evaluation is limited without contrast. There is diffuse fatty infiltration of the liver. The gallbladder appears surgically absent. The spleen is normal in size. Nasogastric tube ti p is in the stomach. No peripancreatic fluid or edema. No hydronephrosis is seen in the kidn eys. The abdominal aorta is normal in diameter without aneurysm. There are multiple dilated loops of small bowel within the midabdomen with a probable transition point in the right low er quadrant, consistent with a mid to distal small bowel obstruction. Etiology for the obstr uction could not be identified. Evaluation of the pelvis is severely limited due to artifact from bilateral hip replacements. Urinary bladder appears mildly distended. There is mild at electasis in the left lung base. 01/17/2017 1. Mid to distal small bowel obstruction, of unclear etiology. 2. Nasogastric tube tip in the stomach. 3. Mild distention of the urinary bladder. 4. Previous cholecyste ctomy. 5. Fatty liver. 6. Mild atelectasis in the left lung base. X-ray Abdomen 1 View 01/18/2017 JOSE RAFAEL WALKER 1950 XR ABDOMEN 1 VIEW 01/18/2017 6:06 AM INDICATION: Syncope and collapse, small bowel obstruction COMPARISON: CT abdomen 01/17/2017 TECHNIQUE: Abdominal series, 1 view, single AP view of the abdomen FINDINGS: Examination injected by patient nano dy habitus. Tip of the nasogastric tube is below left hemidiaphragm and is difficult to visu jose, but appears to be stable in position. Subsegmental atelectasis noted in the left lung base. 01/18/2017 1. Nasogastric tube tip is suboptimally visualized, but appears to be stable in position. 2. Subsegmental atelectasis in the left lung base. X-ray Abdomen Ap 01/17/2017 JOSE RAFAEL WALKER XR ABDOMEN 1 VIEW 01/17/2017 6:00 AM HISTORY: Nasogastric tube monica cement. TECHNIQUE: One view abdomen FINDINGS: Compared with 01/09/2017 at 0159 hours. The hao ogastric tube tip is in the stomach. There is a prominent gas noted within the transverse co cindy. 01/17/2017 1. Nasogastric tube tip in the stomach. Xr Abdomen 1 View 01/17/2017 EXAM: ABDOMEN RADIOGRAPHY EXAM DATE: 01/17/2017 02:41 AM. CLINICAL HISTORY: Abdo daphne pain. COMPARISON: 01/16/2017. TECHNIQUE: 1 view. FINDINGS: Bowel Gas Pattern: Possib le dilated small bowel in the lower abdomen. Other: Previous bilateral hip replacements. 01/17/2017 Cannot exclude small bowel obstruction on this suboptimal supine view. If there is clinical concern for obstruction, consider CT. RADIA Electronically signed by Williams armendariz MD on Jan 17 2017 3:17AM Referring Provider Line: [phone] ID: [id number] Xr Abdomen 1 View 01/16/2017 EXAM: ABDOMEN RADIOGRAPHY EXAM DATE: 01/16/2017 02:43 AM. CLINICAL HISTORY: Cons tipation. COMPARISON: None. TECHNIQUE: 1 view. FINDINGS: Bowel Gas Pattern: Within normal limits. No dilated loops. Other: Previous bilateral hip replacements. 01/16/2017 Grossly negative supine 1-view abdomen x-ray. RADIA Electronically signed by Rich Cooper MD on Jan 16 2017 3:10AM Referring Provider Line: [phone] ID: [id number] Ct Cervical Spine Without Contrast 01/16/2017 EXAM: CT CERVICAL SPINE WITHOUT CONTRAST DATE: 01/16/2017 03:35 AM HISTORY: Neck pain, trauma. COMPARISONS: Cervical spine CT from 01/12/2017. TECHNIQUE: Thin-section axial images were acquired of the cervical spine without contrast. Post-processing: Coronal and sa gittal reformats. Other: None. In accordance with CT protocol optimization, one or more of t he following dose reduction techniques were utilized for this exam: automated exposure contr ol, adjustment of mA and/or KV based on patient size, or use of iterative reconstructive liu hnique. FINDINGS: Alignment: Spinal alignment is unchanged. Bones: Diffuse ankylosis is agai n demonstrated from the craniocervical junction to the visualized upper thoracic region. The fracture through the C6-C7 disk space extending to the bilateral facet joints is stable in appearance. Posterior spinal fusion from C3-T2 is unchanged in position. Of note, the right C7 screw continues to traverse the superior aspect of its foramen and the right T1-T2 pedicl e screw also traverses its respective foramen. No interval change in hardware alignment is s een. Interspace Levels/Facets: No interval development of spinal canal or foraminal stenosis is appreciated. Musculature: Postsurgical changes are noted in the dorsal soft tissues from recent surgery. Other: A prominent left thyroid lobe is again noted. The visualized lung ap ices are clear. 01/16/2017 1. Stable spinal alignment, status post posterior spine fusion from C3-T2 compar ed to the cervical spine CT from 01/12/2017. 2. Ankylosing spondylitis. RADIA Electronicall y signed by Yenifer Marie MD on Jan 16 2017 5:20AM Referring Provider Line: [phone] ID: [id number] PROBLEM LIST ASSESSMENT & PLAN Principal Problem: Closed nondisplaced fracture of seventh cervical vertebra (HCC) Active Problems: Maxillary fracture, left side, initial encounter for open fracture Antiphospholipid syndrome (HCC) Controlled type 2 diabetes mellitus with hyperglycemia (HCC) Syncope and collapse Thyroid mass CSF leak Non morbid obesity 1. Fracture of 7 cervical vertebra. with CSF leak. 01/12: s/p lumbar drain placement and removal 01/20. 01/21: Continue with pain management. Continue physical therapy. Leukocytosis mostly from po stop status. 2. Antiphospholipid syndrome: No anti-coagulation at this time 2nd to status post neck surg jeremiah. 3. Suspected small bowel obstruction Appears resolved at this time. 4. type II diabetes 5. Left-sided maxillary fracture: Pain controlled. 6. Hypophosphatemia: Continue to replace Hospital record is still other steps need to do anything rights reviewed. Labs and radiolog ic studies and reports reviewed. Discussed findings with participating physicians. Old records reviewed on EMR. Condition guarded and high risk for cardiopulmonary decompensation due to underlying condit ions This report has been prepared using a voice recognition system. The report was reviewed for accuracy, however, sound-alike word errors, addition and/or deletions may occur. If there i s any question about this report please contact me. Disposition: inpatient Code Status: Full Code Jimi Mauricio MD 01/21/2017 onversio n Transaction, Provider Unknown - 01/21/2017 11:19 AM PDTFormatting of this note might be di fferent from the original. Therapy Progress Note by Angelito Mirza PTA at 01/21/17 1119 Author: Angelito Mirza PTA Service: (none) Author Type: In Store Demonstrator Filed: 01/21/17 1121 Date of Service: 01/21/17 1119 Status: Signed Food Service Helper: Angelito Mirza PTA (In Store Demonstrator) 01/21/17 1119 PT Last Visit PT Received On 01/21/17 Reason for Treatment Spinal surgery Requires PT Follow Up Yes Assistance Required 1 person Precautions Spinal Precautions Cervical;Cervical collar on when upright Other Comments Comments pt sitting in chair ready to participate completed transfer and gait training and returned to sitting in chair Cognition Overall Cognitive Status WFL Orientation Level Oriented Transfers Sit to/from Stand Standby assist Mobility Ambulation Assistance Standby assist Maximal Ambulation Distance (feet) 550 Total Ambulation Distance (feet) 550 Distance limited by? Patient's ability Pattern Alternating;Decreased khalif Assistive Device Walker front wheeled Activity Tolerance Activity Tolerance Patient limited by fatigue Plan Treatment/Interventions Continue per Primary PT POC Progress Progressing toward goals Recommendation Recommendations Home Assist PT Ready for Discharge Yes PT recommendations were discussed and verified with supervising PT. Mendez Oconnor MD - 01/20/2017 9:15 PM PDT Progress Notes by Mendez Morrison MD at 01/20/172114 Author: Mendez Morrison MD Service: Neurosurgery Author Type: Physician Filed: 01/21/17 1231 Date of Service: 01/20/172114 Status: Signed Food Service Helper: Mendez Morrison MD (Physician) [facility] Service: Neurosurgery Progress Note Hospital Day: LOS: 13 days Post-Op Day: 8 Days Post-Op Surgery/Procedure: Procedure(s) (LRB): LUMBAR - DRAINAGE (N/A) SUBJECTIVE Patient Summary: Doing fine, No CSF leak with LD at 5cc /hr Events Overnight: No acute events Scheduled Medications allopurinol 100 mg Oral Daily calcium carbonate-vitamin D 1 tablet Oral BID WC carbamide peroxide 10 drop Both Ears BID famotidine 20 mg Oral Nightly heparin (porcine) 5000 unit/0.5mL 5,000 Units Subcutaneous 3 times per day hydrochlorothiazide 25 mg Oral Daily insulin detemir 20 Units Subcutaneous BID insulin lispro (human) 0-10 Units Subcutaneous TID AC insulin lispro (human) 0-5 Units Subcutaneous Nightly insulin lispro (human) 6 Units Subcutaneous TID AC levothyroxine 50 mcg Oral QAM AC lisinopril 20 mg Oral Daily sodium chloride 10 mL Intravenous 2 times per day sodium chloride 1 g Oral TID WC zinc sulfate 220 mg Oral Daily Continuous Infusions dextrose dextrose PRN Medications acetaminophen OR acetaminophen, bisacodyl, mocchwhgai-evzellhrpmxvp-qprnuipq, carboxyme thylcellulose, cyclobenzaprine, dextrose, dextrose, dextrose, dextrose, docusate sodium OR docusate, glucagon, glucagon, hydrALAZINE, HYDROmorphone OR HYDROmorphone, lactulose, magnesium sulfate OR magnesium sulfate OR magnesium sulfate, nystatin, nystatin, on dansetron OR ondansetron, petrolatum, phosphorus OR sodium phosphate IVPB 20 mmol OR sodium phosphate IVPB 45 mmol, polyethylene glycol, potassium OR potassium OR p otassium OR potassium chloride OR potassium chloride OR potassium chloride, nirav thicone, sodium chloride, traMADol OBJECTIVE Vital Signs: BP 143/66 mmHg | Pulse 100 | Temp(Src) 98 F (36.7 C) (Oral) | Resp 20 | Ht 1.778 m (5' 10") | Wt 119.4 kg (263 lb 3.7 oz) | BMI 37.77 kg/m2 | SpO2 99% Ox3 craft demonstrator intact 5/5 x4 Sensation intact No radicular pain Wound CDI DATA Recent Labs Lab 01/20/17 0409 01/19/17 0355 01/18/17 0425 WBC 12.04* 9.45 10.34 RBC 3.93* 3.71* 3.81* HGB 11.4* 10.7* 11.2* HCT 34.1* 32.1* 32.1* MCV 86.7 86.4 84.3 MCH 29.1 28.9 29.5 MCHC 33.5 33.4 34.9 RDW 45.1 45.5 44.6 PLT 242 244 264 MPV 8.3 8.2 7.6 DIFFTYPE MANUAL MANUAL MANUAL Results Procedure Component Value Units Date/Time POCT glucose [[id number]] Collected: 01/20/17 1644 GLUCOSE,POC SCREEN 89 mg/dL Updated: 01/20/171855 POCT glucose [[id number]] (Abnormal) Collected: 01/20/17 1204 GLUCOSE,POC SCREEN 103 (H) mg/dL Updated: 01/20/171855 POCT glucose [[id number]] (Abnormal) Collected: 01/20/17 1020 GLUCOSE,POC SCREEN 121 (H) mg/dL Updated: 01/20/171855 CBC w/auto diff (reflex to manual) [[id number]] (Abnormal) Collected: 01/20/17408 Specimen Information: Blood Updated: 01/20/17611 WBC 12.04 (H) K/uL RBC 3.93 (L) M/uL HGB 11.4 (L) g/dL HCT 34.1 (L) % MCV 86.7 fl MCH 29.1 pg MCHC 33.5 g/dL RDW SD 45.1 fl PLT 242 K/uL MPV 8.3 fl DIFF TYPE MANUAL Neutrophils Manual 59 % Bands 10 % METAMYELOCYTES 4 % MYELOCYTES 1 % Lymphocytes Manual 11 % Monocytes Manual 11 % Eosinophils Manual 4 % Neutrophils Absolute 7.12 K/uL Bands Manual 1.20 (H) K/uL Metamyelocytes Absolute 0.48 (H) K/uL Myelocytes Absolute 0.12 (H) K/uL Lymphocytes Absolute 1.32 K/uL Monocytes Absolute 1.32 (H) K/uL Eosinophils Absolute 0.48 K/uL MORPHOLOGY RBC AND PLT MORPHOLOGY APPEAR NORMAL POCT glucose [[id number]] Collected: 01/20/17 0555 GLUCOSE,POC SCREEN 78 mg/dL Updated: 01/20/17 06 POCT glucose [[id number]] (Abnormal) Collected: 01/19/17 2351 GLUCOSE,POC SCREEN 125 (H) mg/dL Updated: 01/20/17 06 POCT glucose [[id number]] (Abnormal) Collected: 01/19/17 2136 GLUCOSE,POC SCREEN 136 (H) mg/dL Updated: 01/20/17 06 Basic metabolic panel [[id number]] (Abnormal) Collected: 01/20/17408 Specimen Information: Blood Updated: 01/20/17528 SODIUM 138 mmol/L POTASSIUM 4.1 mmol/L CHLORIDE 108 mmol/L CO2 20 (L) mmol/L ANION GAP AGAP 14 mmol/L GLUCOSE 74 mg/dL BUN 14 mg/dL CREATININE 0.8 mg/dL BUN/CREAT 18 CALCIUM 8.6 mg/dL EGFR >60 mL/min/1.73m2 Magnesium [[id number]] Collected: 01/20/17408 Specimen Information: Blood Updated: 01/20/17528 MAGNESIUM 2.2 mg/dL Phosphorus [[id number]] Collected: 01/20/17408 Specimen Information: Blood Updated: 01/20/17 0529 PHOSPHORUS 3.6 mg/dL Protime-INR [[id number]] Collected: 01/20/17 0409 Specimen Information: Blood Updated: 01/20/17 0500 INR 1.1 POCT glucose [[id number]] (Abnormal) Collected: 01/19/17 1905 GLUCOSE,POC SCREEN 118 (H) mg/dL Updated: 01/19/17 1908 POCT glucose [[id number]] (Abnormal) Collected: 01/19/17 1746 GLUCOSE,POC SCREEN 107 (H) mg/dL Updated: 01/19/17 1751 Potassium [[id number]] (Abnormal) Collected: 01/19/17 142 Specimen Information: Blood Updated: 01/19/17 1452 POTASSIUM 3.1 (L) mmol/L Magnesium [[id number]] Collected: 01/19/17 142 Specimen Information: Blood Updated: 01/19/17 1452 MAGNESIUM 2.0 mg/dL Phosphorus [[id number]] (Abnormal) Collected: 01/19/17 142 Specimen Information: Blood Updated: 01/19/17 1452 PHOSPHORUS 1.4 (L) mg/dL POCT glucose [[id number]] (Abnormal) Collected: 01/19/17 1205 GLUCOSE,POC SCREEN 146 (H) mg/dL Updated: 01/19/17 1421 POCT glucose [[id number]] (Abnormal) Collected: 01/19/17 0605 GLUCOSE,POC SCREEN 136 (H) mg/dL Updated: 01/19/17 0630 CBC w/auto diff (reflex to manual) [[id number]] (Abnormal) Collected: 01/19/17 0355 Specimen Information: Blood Updated: 01/19/17 0533 WBC 9.45 K/uL RBC 3.71 (L) M/uL HGB 10.7 (L) g/dL HCT 32.1 (L) % MCV 86.4 fl MCH 28.9 pg MCHC 33.4 g/dL RDW SD 45.5 fl PLT 244 K/uL MPV 8.2 fl DIFF TYPE MANUAL Neutrophils Manual 67 % Bands 6 % Lymphocytes Manual 16 % Monocytes Manual 9 % Eosinophils Manual 2 % Neutrophils Absolute 6.33 K/uL Bands Manual 0.57 (H) K/uL Lymphocytes Absolute 1.51 K/uL Monocytes Absolute 0.85 (H) K/uL Eosinophils Absolute 0.19 K/uL MORPHOLOGY RBC AND PLT MORPHOLOGY APPEAR NORMAL Basic metabolic panel [[id number]] (Abnormal) Collected: 01/19/17354 Specimen Information: Blood Updated: 01/19/17457 SODIUM 139 mmol/L POTASSIUM 3.4 (L) mmol/L CHLORIDE 103 mmol/L CO2 25 mmol/L ANION GAP AGAP 14 mmol/L GLUCOSE 144 (H) mg/dL BUN 22 mg/dL CREATININE 0.7 mg/dL BUN/CREAT 31 CALCIUM 7.7 (L) mg/dL EGFR >60 mL/min/1.73m2 Magnesium [[id number]] Collected: 01/19/17354 Specimen Information: Blood Updated: 01/19/17457 MAGNESIUM 2.1 mg/dL Phosphorus [[id number]] (Abnormal) Collected: 01/19/17354 Specimen Information: Blood Updated: 01/19/17457 PHOSPHORUS 2.2 (L) mg/dL Protime-INR [[id number]] Collected: 01/19/17354 Specimen Information: Blood Updated: 01/19/17419 INR 1.1 POCT glucose [[id number]] (Abnormal) Collected: 01/18/172134 GLUCOSE,POC SCREEN 121 (H) mg/dL Updated: 01/18/17 2150 POCT glucose [[id number]] (Abnormal) Collected: 01/18/17 170 GLUCOSE,POC SCREEN 178 (H) mg/dL Updated: 01/18/171739 POCT glucose [[id number]] (Abnormal) Collected: 01/18/17 0927 GLUCOSE,POC SCREEN 152 (H) mg/dL Updated: 01/18/17 174 Magnesium [[id number]] Collected: 01/18/171706 Specimen Information: Blood Updated: 01/18/171735 MAGNESIUM 2.2 mg/dL Phosphorus [[id number]] (Abnormal) Collected: 01/18/171706 Specimen Information: Blood Updated: 01/18/171735 PHOSPHORUS 1.6 (L) mg/dL Potassium [[id number]] Collected: 01/18/171706 Specimen Information: Blood Updated: 01/18/171735 POTASSIUM 3.7 mmol/L TSH reflex [[id number]] Collected: 01/18/17424 TSH REFLEX 1.78 uIU/mL Updated: 01/18/17 1118 Procalcitonin [[id number]] Collected: 01/18/17921 PROCALCITONIN 0.11 ng/mL Updated: 01/18/17 1003 Septic Lactic Acid [[id number]] Collected: 01/18/17921 LACTIC ACID 1.0 mmol/L Updated: 01/18/1753 POCT glucose [[id number]] (Abnormal) Collected: 01/18/17618 GLUCOSE,POC SCREEN 127 (H) mg/dL Updated: 01/18/17622 CBC w/auto diff (reflex to manual) [[id number]] (Abnormal) Collected: 01/18/17424 Specimen Information: Blood Updated: 01/18/17513 WBC 10.34 K/uL RBC 3.81 (L) M/uL HGB 11.2 (L) g/dL HCT 32.1 (L) % MCV 84.3 fl MCH 29.5 pg MCHC 34.9 g/dL RDW SD 44.6 fl PLT 264 K/uL MPV 7.6 fl DIFF TYPE MANUAL Neutrophils Manual 64 % Bands 19 % Lymphocytes Manual 8 % Monocytes Manual 9 % Neutrophils Absolute 6.62 K/uL Bands Manual 1.96 (H) K/uL Lymphocytes Absolute 0.83 (L) K/uL Monocytes Absolute 0.93 (H) K/uL Platelet Estimate ADEQUATE MORPHOLOGY RBC AND PLT MORPHOLOGY APPEAR NORMAL Basic metabolic panel [[id number]] (Abnormal) Collected: 01/18/17424 Specimen Information: Blood Updated: 01/18/17500 SODIUM 132 (L) mmol/L POTASSIUM 3.4 (L) mmol/L CHLORIDE 95 (L) mmol/L CO2 28 mmol/L ANION GAP AGAP 13 mmol/L GLUCOSE 118 (H) mg/dL BUN 43 (H) mg/dL CREATININE 0.87 mg/dL BUN/CREAT 49 CALCIUM 8.1 (L) mg/dL EGFR >60 mL/min/1.73m2 Magnesium [[id number]] (Abnormal) Collected: 01/18/17424 Specimen Information: Blood Updated: 01/18/17 050 MAGNESIUM 2.5 (H) mg/dL Phosphorus [[id number]] (Abnormal) Collected: 01/18/17424 Specimen Information: Blood Updated: 01/18/17 0501 PHOSPHORUS 1.5 (L) mg/dL Protime-INR [[id number]] Collected: 01/18/17 0425 Specimen Information: Blood Updated: 01/18/17 0452 INR 1.1 POCT glucose [[id number]] (Abnormal) Collected: 01/17/17 2205 GLUCOSE,POC SCREEN 124 (H) mg/dL Updated: 01/18/17 0419 Recent Labs Lab 01/20/17 0409 01/19/17 0355 01/18/17 [address] Abdomen Pelvis Without Contrast 01/17/2017 1. Mid to distal small bowel obstruction, of unclear etiology. 2. Nasogastric tube tip in the stomach. 3. Mild distention of the urinary bladder. 4. Previous cholecyste ctomy. 5. Fatty liver. 6. Mild atelectasis in the left lung base. X-ray Abdomen 1 View 01/18/2017 1. Nasogastric tube tip is suboptimally visualized, but appears to be stable in position. 2. Subsegmental atelectasis in the left lung base. X-ray Abdomen Ap 01/17/2017 1. Nasogastric tube tip in the stomach. Xr Abdomen 1 View 01/17/2017 Cannot exclude small bowel obstruction on this suboptimal supine view. If there is clinical concern for obstruction, consider CT. RADIA Electronically signed by Williams armendariz MD on Jan 17 2017 3:17AM Referring Provider Line: [phone] ID: [id number] Xr Abdomen 1 View 01/16/2017 Grossly negative supine 1-view abdomen x-ray. RADIA Electronically signed by Rich Cooper MD on Jan 16 2017 3:10AM Referring Provider Line: [phone] ID: [id number] Ct Head Without Contrast 01/14/2017 1. No acute intracranial findings. 2. Decreased postoperative pneumocephalus c ompared with 01/09/2017. 3. No definite evidence of over-shunting. Ct Cervical Spine Without Contrast 01/16/2017 1. Stable spinal alignment, status post posterior spine fusion from C3-T2 compar ed to the cervical spine CT from 01/12/2017. 2. Ankylosing spondylitis. RADIA Electronicall y signed by Yenifer Marie MD on Jan 16 2017 5:20AM Referring Provider Line: [phone] [id number] ID: [id number] PROBLEM LIST Principal Problem: Closed nondisplaced fracture of seventh cervical vertebra (HCC) Active Problems: Maxillary fracture, left side, initial encounter for open fracture Antiphospholipid syndrome (HCC) Controlled type 2 diabetes mellitus with hyperglycemia (HCC) Syncope and collapse Thyroid mass CSF leak Non morbid obesity ASSESSMENT & PLAN POD 11 C3-T 2 fusion POD 8 Lumbar drain placement for CSF leak Wound dry Ambulating with PT DC lumbar drain Disposition: Home Code Status: Full Code Mendez Morrison MD 01/20/2017 9:16 PM onyumiko n Transaction, Provider Unknown - 01/20/2017 9:05 PM PDTFormatting of this note might be di fferent from the original. Nurse Progress Note by Fernanda Robles RN at 01/20/172104 Author: Fernanda Robles RN Service: (none) Author Type: Registered Nurse Filed: 01/20/172109 Date of Service: 01/20/172104 Status: Signed Food Service Helper: Fernanda Robles RN (Registered Nurse) Pt complaining of 8/10 pain from neck to shoulders/right elblow and tingling in the R hand/ fingers. Pain is not new, per patient, but is intermittently spasming/sharp. Pain level is c onsistently above a 6- pt state the lowest his pain had been today was a 5 after "Kahlil biggs" worked on his shoulders. Pt given 100mg tramadol with 650mg tylenol at 2012. Pt al so given 0.5mg hydromorphone as well as 10mg PRN flexeril at 2099. Pt ambulated to bathroom with assist. Updated on plans to transfer to surgical unit room 43 0. Matt Mckeon MD - 01/20/2017 5:28 PM PDT Progress Notes by Matt Fong MD at 01/20/171727 Author: Matt Fong MD Service: Senior Staff Psychologist Author Type: Physician Filed: 01/20/171736 Date of Service: 01/20/171727 Status: Signed Food Service Helper: Matt Fong MD (Physician) [facility] Service: Senior Staff Psychologist Progress Note Jose Rafael Walker 66 y.o. Hospital Day: LOS: 13 days Post-Op Day: Day of Surgery Consulting Physicians Treatment Team: Consulting Physician: Mendez Morrison MD Consulting Physician: Jeovany Jennings MD Admitting Provider: Moni Dumont DO SUBJECTIVE Patient Summary: From Dr Dumont's H&P: The patient is a 66 y.o. male with significant past medical history of ankylosing spondylit is, diabetes type II, deep vein thrombosis, iron deficiency anemia, testicular hypofunction, obesity, hypertension, dyslipidemia, abdomen disorder, transient ischemic attack, non ambul atory ankylosing spondylitis, who presents to transfer from [facility] with a C7 fracture, left maxillary sinus fracture, thyroid mass and syncope. Main complaints at the utlining facility were left sided face swelling, neck pain, confusion and difficulty remembe ring anything. Per history, patient woke up in a chair, went into the bathroom and found thi ngs in disarray. Granddaughter was then notified by neighbors that they heard a crashing berta nd earlier around 1:30. During the day patient had being a but was in the his usual state of health, came home and went to sleep on his recliner. He cannot remember anything th at happened, next thing that he was clear in his mind was his granddaughter asking questions . Patient denies any chest pain, shortness of breath, headache, dizziness, confusion, fever, chills or illness prior to his syncopal episode/ amnestic event. Reports chronic right shou lder pain. Reports neck pain with movement of his legs or any part of his body. He denies any dysphagi a. ED findings: C7 fracture, leukocytosis, hypokalemia, thyroid mass, left maxillary sinus fra cture [facility] ED treatment: Dilaudid, morphine, cyclobenzaprine From Dr Saravia's most recent progress note: 66-year-old gentleman with past medical history of ankylosing spondylitis, diabetes mellitu s type II on insulin, history of deep vein thrombosis, iron deficiency anemia, hypertension hyperlipidemia history of transient ischemic attack who had a fall in his bathroom and was t aken to the hospital with neck pain found to have C7 fracture, left maxillary sinus fracture , enlarged left thyroid lobe suggesting goiter a large nodule and patient does not recall th e circumstances of all though he admitted that he takes morphine which might have makes him loopy and had a fall because affect. Patient underwent C3-C4, 3-5, 5-6, 6-7, C7-T1, T1-T2 posterior pedicle L mass lesion by Dr. Rivera on 09 january and postoperatively patient was intubated for airways protection and transferred to ICU and was transferred back to the floor on 11 january. Patient had a syncope workup including echocardiogram which showed normal ejection fraction ,no significant valvular abnormalities and CT neck was negative for any stenosis, aneurysm or dissection ICU Timeline: 01/12: Admitted to ICU after placement of Lumbar drain by Neurosurgery due to CSF leak 01/13: Lumbar drain remains in place with hourly drainage of 15mls of CSF 01/14: Lumbar drain in place. Working with PT daily 01/16: Lumbar Drain was leaking from the incision site. Dr. Morrison to come later toda y and put in a suture to close the leak site. 01/18: Paitent's lumbar drain in place. No acute leaks noted. Patient's drain rate reduc ed to 10cc/hr. 01-19: drain down to 5 ml/hr, ileus resolved. 01-20: drain removed. Events Overnight: eating, tolerating clamping the drain.diarrhea is at hi sbaseline he says . SCHEDULED MEDICATIONS allopurinol 100 mg Oral Daily calcium carbonate-vitamin D 1 tablet Oral BID WC carbamide peroxide 10 drop Both Ears BID famotidine 20 mg Oral Nightly heparin (porcine) 5000 unit/0.5mL 5,000 Units Subcutaneous 3 times per day hydrochlorothiazide 25 mg Oral Daily insulin detemir 20 Units Subcutaneous BID insulin lispro (human) 0-10 Units Subcutaneous TID AC insulin lispro (human) 0-5 Units Subcutaneous Nightly insulin lispro (human) 6 Units Subcutaneous TID AC levothyroxine 50 mcg Oral QAM AC lisinopril 20 mg Oral Daily sodium chloride 10 mL Intravenous 2 times per day sodium chloride 1 g Oral TID WC zinc sulfate 220 mg Oral Daily CONTINUOUS INFUSIONS dextrose dextrose OBJECTIVE VITAL SIGNS Temp: [97.4 F (36.3 C)-98.4 F (36.9 C)] 98.4 F (36.9 C) Heart Rate: [63-81] 81 Resp: [16-20] 16 BP: (137-203)/(63-89) 137/63 mmHg Intake/Output Summary (Last 24 hours) at 01/20/17 1728 Last data filed at 01/20/17 1010 Gross per 24 hour Intake 2813 ml Output 520 ml Net 2293 ml EXAM GEN: Awake, alert, oriented x4. oob in A chair with C-Collar on. NEURO: PERRL, EOMI, no facial asymmetry, moves all extremities well with equal strength. Se nsation intact except he c/o burning sensation right forearm GCS: 15 HEENT: sclerae clear, nonicteric, oral mmm, pink NECK: supple, trachea midline, C Collar in place CV: Heart tones regular. S1/S2, no murmur, rub or gallop, peripheral pulses palpable, cap r efill brisk LUNGS: Clear b/l, no wheezing, rales or rhonchi, symmetric chest expansion ABD: obese abdomen. active bowel sounds, abd .less distended , No pain on palpation. EXTR: 1+ BLE edema, no clubbing or cyanosis SKIN: warm, dry, no rash or mottling; no e/o skin breakdown over the occiput, scapulae, elb ows, sacrum or heels. Surgical incisions dressed and had some fluid stain mildly. LINES/TUBES: PIV Right wrist, Midline left, DATA Recent Labs Lab 01/20/17 0409 01/19/17 0355 01/18/17 0425 01/16/17 0435 WBC 12.04* 9.45 10.34 < > 11.72* RBC 3.93* 3.71* 3.81* < > 3.94* HGB 11.4* 10.7* 11.2* < > 11.6* HCT 34.1* 32.1* 32.1* < > 33.5* MCV 86.7 86.4 84.3 < > 85.0 MCH 29.1 28.9 29.5 < > 29.4 MCHC 33.5 33.4 34.9 < > 34.6 RDW 45.1 45.5 44.6 < > 44.2 PLT 242 244 264 < > 262 MPV 8.3 8.2 7.6 < > 7.9 BANDSABS 1.20* 0.57* 1.96* < > -- NEUTROABS -- -- -- -- 9.67* LYMPHSABS -- -- -- -- 0.89* MONOSABS -- -- -- -- 0.99* BASOSABS -- -- -- -- 0.02 EOSABS -- -- -- -- 0.16 MORPH RBC AND PLT MORPHOLOGY APPEAR NORMAL RBC AND PLT MORPHOLOGY APPEAR NORMAL RBC AND PLT MORPHOLOGY APPEAR NORMAL < > -- < > = values in this interval not displayed. Recent Labs Lab 01/20/1740801/19/17142101/19/1735401/18/17424 NA 138 -- 139 -- 132* K 4.1 3.1* 3.4* < > 3.4* CL 108 -- 103 -- 95* CO2 20* -- 25 -- 28 ANIONGAP 14 -- 14 -- 13 GLUF 74 -- 144* -- 118* BUN 14 -- 22 -- 43* CREATININE 0.8 -- 0.7 -- 0.87 BCR 18 -- 31 -- 49 CA 8.6 -- 7.7* -- 8.1* EGFR >60 -- >60 -- >60 PHOS 3.6 1.4* 2.2* < > 1.5* MG 2.2 2.0 2.1 < > 2.5* < > = values in this interval not displayed. Recent Labs Lab 01/20/1740801/19/1735401/18/175 INR 1.1 1.1 1.1 IMAGING Xr Abdomen 1 View 01/17/2017 Cannot exclude small bowel obstruction on this suboptimal supine view. If there is clinical concern for obstruction, consider CT. RADIA Electronically signed by Williams armendariz MD on Jan 17 2017 3:17AM Referring Provider Line: [phone] ID: [id number] Xr Abdomen 1 View 01/16/2017 Grossly negative supine 1-view abdomen x-ray. RADIA Electronically signed by Rich Cooper MD on Jan 16 2017 3:10AM Referring Provider Line: [phone] ID: [id number] Ct Cervical Spine Without Contrast 01/16/2017 1. Stable spinal alignment, status post posterior spine fusion from C3-T2 compar ed to the cervical spine CT from 01/12/2017. 2. Ankylosing spondylitis. RADIA Electronicall y signed by Yenifer Marie MD on Jan 16 2017 5:20AM Referring Provider Line: [phone] ID: [id number] PROBLEM LIST Principal Problem: Closed nondisplaced fracture of seventh cervical vertebra (HCC) Active Problems: Maxillary fracture, left side, initial encounter for open fracture Antiphospholipid syndrome (HCC) Controlled type 2 diabetes mellitus with hyperglycemia ([facility]) Syncope and collapse Thyroid mass CSF leak Non morbid obesity Resolved Problems: * No resolved hospital problems. * ASSESSMENT & PLAN NEURO: CSF Leak: Lumbar drain placed by Neurosurgery 01/12. Drain management at 5cc/hr and remov ed on 01-20. Keep HOB at 70 degrees. Ambulation encouraged. Monitor neuro status closely and drainage at the level of the cervical incision. Cervical Fracture S/P fusion C3 to T2. Remains in C collar. Post surgical management by NS. CAM ICU each shift CV: Hypertension: continue lisinopril. PULM: No acute issues. On room air. GI/NUTRITION: Suspected small bowel obstruction: resolved, try to minimize natcs, using tramadol. Diar alessandra: pt had couple of liquid stools overnight, will place in isolation, pt says that since his colon surgery for diverticulitis he has been having diarrhea and the current one is not different in consistency or frequency, will watch . RENAL/LYTES: Hyponatremia: improving. Fluid restriction removed. Avoid nephrotoxins Monitor electrolytes and replace as per ICU protocol ID: Patient was started on prophylaxis with cipro IV 400mg Q12H for 3 days, will stop as the procal is only 0.11.. Would watch closely for bandemia or signs of wound infection.. Will m onitor WBC and vital signs HEME: Antiphospholipid Syndrome: Chronic anticoagulation to resume as per Neurosurgery and Hem atology. SQ heparin for now. 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 MUSC/SKIN: Routine skin care as per nursing protocol Turn/reposition in bed Q 2 hours PT/OT to continue treatment PROPHYLAXIS: Stress ulcer prophylaxis: PPI DVT prophylaxis: SCD's; heparin SQ. Resume chronic anticoagulation as per Neurosurgery VAP bundle: N/A Disposition: will tx out of icu, dr tamiko lópez. ICU plan of care as above. Please bill 30 mn of high complexity time.. Code Status: Full Code MATT FONG MD 01/20/2017 onversion Yuan saction, Provider Unknown - 01/20/2017 4:01 PM PDTFormatting of this note might be differen t from the original. Therapy Progress Note by Brook Beasley PT at 01/20/17 1601 Author: Brook Beasley PT Service: (none) Author Type: Physical Therapist Filed: 01/20/17 1642 Date of Service: 01/20/17 1601 Status: Addendum Food Service Helper: Brook Beasley PT (Physical Therapist) Related Notes: Original Note by Brook Beasley PT (Physical Therapist) filed at 7 1641 01/20/17 1601 PT Last Visit PT Received On 01/20/17 Reason for Treatment Spinal surgery Requires PT Follow Up Yes Follow up PT Only? No PT Eval/Reassessment Date 01/20/17 Assistance Required 1 person Precautions Spinal Precautions Cervical;Cervical collar on when upright Other Precautions fall precautions enteric precautions Other Comments Comments Pt in supine upon arrival and had drain removed earlier today. RN had pre-medicate d pt for pain. Pt reporting 7-8/10 pain in posterior c-spine pre-activity which reduced to 6 /10 post activity. Despite wanting therapist to elevate bed height, pt was able to stand fro m bed in lowest position with SBA using BUEs for support. Pt ambulates safely with FWW with no evidence of imbalance, but eventually is limited by BLE fatigue. Pt left in recliner nitesh r at end of session, needs met. Cognition Overall Cognitive Status WFL Orientation Level Oriented Bed Mobility Supine to Sit Mod assist (BLEs OOB or trunk to upright);x 1 person Transfers Sit to/from Stand Standby assist;x 1 person Mobility Ambulation Assistance Standby assist;X1 Maximal Ambulation Distance (feet) 200 (performed in pt's room d/t enteric precautions) Total Ambulation Distance (feet) 200 Distance limited by? Patient's ability Pattern Decreased khalif;Right swing foot doesn't pass stance foot;Left swing foot doesn't pass stance foot Assistive Device Walker front wheeled Modalities Other Therapy Ed on cervical precautions, adjusting cervical collar, ongoing increase in mo bility, and recommendations. Activity Tolerance Activity Tolerance Patient limited by fatigue Nurse Made Aware RN Usha Safety Devices Safety Devices in Place (call light in reach; needs met) Plan Treatment/Interventions Continue per Primary PT POC Progress Progressing toward goals PT Frequency 5-7x/wk;Once per day Care Duration (# of days) 7 # of days Recommendation Recommendations Home Assist;HH PT Barriers to Discharge Pain;Physical Deficits Impacting Functional Harding PT Ready for Discharge Yes Recommendation Comments Pt mobilizing safely with SBA today. Pt needs assist for bed mobili ty, but sleeps in a lift chair at home and plans to continue sleeping in that upon d/c. Pt r eassures therapist that he will have any one of his 3 grandchildren to assist him at all munir es and will stay overnight with him as long as needed. Given today's mobility, this appears to be a safe d/c plan and pt very much does not want to d/c to SNF. onver jacki Transaction, Provider Unknown - 01/20/2017 10:50 AM PDT Therapy Progress Note by Brook Beasley PT at 01/20/17 1050 Author: Brook Beasley PT Service: (none) Author Type: Physical Therapist Filed: 01/20/17 1050 Date of Service: 01/20/17 105 Status: Signed Food Service Helper: Brook Beasley PT (Physical Therapist) 01/20/17 1050 PT Last Visit PT Received On 01/20/17 Requires PT Follow Up Unavailable;On hold Other Comments Comments Spoke with RN who reports that pt is waiting NS to arrive to assess drainage and d etermine if drain can be removed. She requests therapist return later to allow NS to assess pt. Will follow up later today. onver jacki Transaction, Provider Unknown - 01/20/2017 9:35 AM PDT Therapy Progress Note by REGINALDO Swan at 01/20/1735 Author: REGINALDO Swan Service: (none) Author Type: Massage Therapist Filed: 01/20/17 1420 Date of Service: 01/20/17934 Status: Addendum Food Service Helper: REGINALDO Swan (Massage Therapist) Related Notes: Original Note by REGINALDO Swan (Massage Therapist) filed at 01/2001/20/1734 MT Last Visit MT Received On 01/20/17 MT Therapy Visit Not available (pt care) Treated onver jacki Transaction, Provider Unknown - 01/20/2017 9:29 AM PDT Case Management by SN Lopez at 01/20/17928 Author: SN Lopez Service: (none) Author Type: Phytopathologist Filed: 01/20/1736 Date of Service: 01/20/17928 Status: Signed Food Service Helper: SN Lopez (Phytopathologist) Attended rounds and plan is to clamp patient's lumbar drain and planned removal later today by Dr. Morrison. Patient had loose stools overnight and will isolate patient per policy. Blood pressures elevated and will be addressed with additional medications. Mendez Oconnor MD - 01/19/2017 6:40 PM PDT Progress Notes by Mendez Morrison MD at 01/19/17 3449 Author: Mendez Morrison MD Service: Neurosurgery Author Type: Physician Filed: 01/21/17 9204 Date of Service: 01/19/17 0450 Status: Signed Food Service Helper: Mendez Morrison MD (Physician) [facility] Service: Neurosurgery Progress Note Hospital Day: LOS: 12 days Post-Op Day: 7 Days Post-Op Surgery/Procedure: Procedure(s) (LRB): LUMBAR - DRAINAGE (N/A) SUBJECTIVE Patient Summary: Doing fine, Tolerating diet and LD @10cc/hr Events Overnight: No acute events Scheduled Medications allopurinol 100 mg Oral Daily bisacodyl 10 mg Rectal Daily calcium carbonate-vitamin D 1 tablet Oral BID WC carbamide peroxide 10 drop Both Ears BID ciprofloxacin 500 mg Oral BIDQ famotidine 20 mg Oral Nightly heparin (porcine) 5000 unit/0.5mL 5,000 Units Subcutaneous 3 times per day insulin detemir 30 Units Subcutaneous BID insulin lispro (human) 0-10 Units Subcutaneous TID AC insulin lispro (human) 0-5 Units Subcutaneous Nightly insulin lispro (human) 6 Units Subcutaneous TID AC [START ON 01/20/2017] levothyroxine 50 mcg Oral QAM AC [START ON 01/20/2017] lisinopril 20 mg Oral Daily pantoprazole 40 mg Intravenous QAM AC sodium chloride 10 mL Intravenous 2 times per day sodium chloride 1 g Oral TID WC zinc sulfate 220 mg Oral Daily Continuous Infusions dextrose dextrose PRN Medications acetaminophen OR acetaminophen, vkxziwgszs-wxwfxtkroiglh-yzqckzbq, carboxymethylcellulo se, cyclobenzaprine, dextrose, dextrose, dextrose, dextrose, docusate sodium OR docusate , glucagon, glucagon, HYDROmorphone OR HYDROmorphone, lactulose, magnesium sulfate OR* * magnesium sulfate OR magnesium sulfate, nystatin, nystatin, ondansetron OR ondanse saravanan, petrolatum, polyethylene glycol, potassium chloride OR potassium chloride OR p otassium chloride, simethicone, sodium chloride, [DISCONTINUED] phosphorus OR sodium mesfin sphate IVPB 20 mmol OR sodium phosphate IVPB 45 mmol, traMADol OBJECTIVE Vital Signs: BP 166/72 mmHg | Pulse 75 | Temp(Src) 98 F (36.7 C) (Oral) | Resp 16 | Ht 1.778 m (5' 1 0") | Wt 119.4 kg (263 lb 3.7 oz) | BMI 37.77 kg/m2 | SpO2 97% Ox3 craft demonstrator intact 5/5 x4 Sensation intact No radicular pain Wound CDI DATA Recent Labs Lab 01/19/17 0355 01/18/17 0425 01/17/17 0328 WBC 9.45 10.34 13.35* RBC 3.71* 3.81* 4.02* HGB 10.7* 11.2* 11.8* HCT 32.1* 32.1* 33.9* MCV 86.4 84.3 84.4 MCH 28.9 29.5 29.5 MCHC 33.4 34.9 34.9 RDW 45.5 44.6 45.1 PLT 244 264 275 MPV 8.2 7.6 8.2 DIFFTYPE MANUAL MANUAL MANUAL Results Procedure Component Value Units Date/Time POCT glucose [[id number]] (Abnormal) Collected: 01/19/17 1746 GLUCOSE,POC SCREEN 107 (H) mg/dL Updated: 01/19/17 1751 Potassium [[id number]] (Abnormal) Collected: 01/19/17 142 Specimen Information: Blood Updated: 01/19/17 1452 POTASSIUM 3.1 (L) mmol/L Magnesium [[id number]] Collected: 01/19/171421 Specimen Information: Blood Updated: 01/19/17 1452 MAGNESIUM 2.0 mg/dL Phosphorus [[id number]] (Abnormal) Collected: 01/19/17 142 Specimen Information: Blood Updated: 01/19/17 1452 PHOSPHORUS 1.4 (L) mg/dL POCT glucose [[id number]] (Abnormal) Collected: 01/19/17 1205 GLUCOSE,POC SCREEN 146 (H) mg/dL Updated: 01/19/17 1421 POCT glucose [[id number]] (Abnormal) Collected: 01/19/17 0605 GLUCOSE,POC SCREEN 136 (H) mg/dL Updated: 01/19/17 0630 CBC w/auto diff (reflex to manual) [[id number]] (Abnormal) Collected: 01/19/17354 Specimen Information: Blood Updated: 05/30/17 0533 WBC 9.45 K/uL RBC 3.71 (L) M/uL HGB 10.7 (L) g/dL HCT 32.1 (L) % MCV 86.4 fl MCH 28.9 pg MCHC 33.4 g/dL RDW SD 45.5 fl PLT 244 K/uL MPV 8.2 fl DIFF TYPE MANUAL Neutrophils Manual 67 % Bands 6 % Lymphocytes Manual 16 % Monocytes Manual 9 % Eosinophils Manual 2 % Neutrophils Absolute 6.33 K/uL Bands Manual 0.57 (H) K/uL Lymphocytes Absolute 1.51 K/uL Monocytes Absolute 0.85 (H) K/uL Eosinophils Absolute 0.19 K/uL MORPHOLOGY RBC AND PLT MORPHOLOGY APPEAR NORMAL Basic metabolic panel [[id number]] (Abnormal) Collected: 01/19/17354 Specimen Information: Blood Updated: 01/19/17457 SODIUM 139 mmol/L POTASSIUM 3.4 (L) mmol/L CHLORIDE 103 mmol/L CO2 25 mmol/L ANION GAP AGAP 14 mmol/L GLUCOSE 144 (H) mg/dL BUN 22 mg/dL CREATININE 0.7 mg/dL BUN/CREAT 31 CALCIUM 7.7 (L) mg/dL EGFR >60 mL/min/1.73m2 Magnesium [[id number]] Collected: 01/19/17354 Specimen Information: Blood Updated: 01/19/17457 MAGNESIUM 2.1 mg/dL Phosphorus [[id number]] (Abnormal) Collected: 01/19/17354 Specimen Information: Blood Updated: 01/19/17457 PHOSPHORUS 2.2 (L) mg/dL Protime-INR [[id number]] Collected: 01/19/17354 Specimen Information: Blood Updated: 01/19/17419 INR 1.1 POCT glucose [[id number]] (Abnormal) Collected: 01/18/17 2135 GLUCOSE,POC SCREEN 121 (H) mg/dL Updated: 01/18/17 2150 POCT glucose [[id number]] (Abnormal) Collected: 01/18/17 1704 GLUCOSE,POC SCREEN 178 (H) mg/dL Updated: 01/18/17 174 POCT glucose [[id number]] (Abnormal) Collected: 01/18/17 0927 GLUCOSE,POC SCREEN 152 (H) mg/dL Updated: 01/18/17 174 Magnesium [[id number]] Collected: 01/18/171706 Specimen Information: Blood Updated: 01/18/176 MAGNESIUM 2.2 mg/dL Phosphorus [[id number]] (Abnormal) Collected: 01/18/171706 Specimen Information: Blood Updated: 01/18/171735 PHOSPHORUS 1.6 (L) mg/dL Potassium [[id number]] Collected: 01/18/171706 Specimen Information: Blood Updated: 01/18/171735 POTASSIUM 3.7 mmol/L TSH reflex [[id number]] Collected: 01/18/17424 TSH REFLEX 1.78 uIU/mL Updated: 01/18/17 1118 Procalcitonin [[id number]] Collected: 01/18/17921 PROCALCITONIN 0.11 ng/mL Updated: 01/18/17 1003 Septic Lactic Acid [[id number]] Collected: 01/18/17921 LACTIC ACID 1.0 mmol/L Updated: 01/18/17 0953 POCT glucose [[id number]] (Abnormal) Collected: 01/18/1719 GLUCOSE,POC SCREEN 127 (H) mg/dL Updated: 01/18/17622 CBC w/auto diff (reflex to manual) [[id number]] (Abnormal) Collected: 01/18/17424 Specimen Information: Blood Updated: 01/18/17 0514 WBC 10.34 K/uL RBC 3.81 (L) M/uL HGB 11.2 (L) g/dL HCT 32.1 (L) % MCV 84.3 fl MCH 29.5 pg MCHC 34.9 g/dL RDW SD 44.6 fl PLT 264 K/uL MPV 7.6 fl DIFF TYPE MANUAL Neutrophils Manual 64 % Bands 19 % Lymphocytes Manual 8 % Monocytes Manual 9 % Neutrophils Absolute 6.62 K/uL Bands Manual 1.96 (H) K/uL Lymphocytes Absolute 0.83 (L) K/uL Monocytes Absolute 0.93 (H) K/uL Platelet Estimate ADEQUATE MORPHOLOGY RBC AND PLT MORPHOLOGY APPEAR NORMAL Basic metabolic panel [[id number]] (Abnormal) Collected: 01/18/17424 Specimen Information: Blood Updated: 01/18/17 050 SODIUM 132 (L) mmol/L POTASSIUM 3.4 (L) mmol/L CHLORIDE 95 (L) mmol/L CO2 28 mmol/L ANION GAP AGAP 13 mmol/L GLUCOSE 118 (H) mg/dL BUN 43 (H) mg/dL CREATININE 0.87 mg/dL BUN/CREAT 49 CALCIUM 8.1 (L) mg/dL EGFR >60 mL/min/1.73m2 Magnesium [[id number]] (Abnormal) Collected: 01/18/17424 Specimen Information: Blood Updated: 01/18/17 0501 MAGNESIUM 2.5 (H) mg/dL Phosphorus [[id number]] (Abnormal) Collected: 01/18/17424 Specimen Information: Blood Updated: 01/18/17 0501 PHOSPHORUS 1.5 (L) mg/dL Protime-INR [[id number]] Collected: 01/18/17424 Specimen Information: Blood Updated: 01/18/17 045 INR 1.1 POCT glucose [[id number]] (Abnormal) Collected: 01/17/17 2205 GLUCOSE,POC SCREEN 124 (H) mg/dL Updated: 01/18/17 0419 POCT glucose [[id number]] (Abnormal) Collected: 01/17/17 1626 GLUCOSE,POC SCREEN 140 (H) mg/dL Updated: 01/17/17 1633 POCT glucose [[id number]] (Abnormal) Collected: 01/17/17 1132 GLUCOSE,POC SCREEN 171 (H) mg/dL Updated: 01/17/17 1150 POCT glucose [[id number]] (Abnormal) Collected: 01/17/17 0824 GLUCOSE,POC SCREEN 145 (H) mg/dL Updated: 01/17/17 0838 POCT glucose [[id number]] Collected: 01/16/17 2136 GLUCOSE,POC SCREEN 94 mg/dL Updated: 01/17/17 0608 CBC w/auto diff (reflex to manual) [[id number]] (Abnormal) Collected: 01/17/17 0328 Specimen Information: Blood Updated: 01/17/17 0505 WBC 13.35 (H) K/uL RBC 4.02 (L) M/uL HGB 11.8 (L) g/dL HCT 33.9 (L) % MCV 84.4 fl MCH 29.5 pg MCHC 34.9 g/dL RDW SD 45.1 fl PLT 275 K/uL MPV 8.2 fl DIFF TYPE MANUAL Neutrophils Manual 64 % Bands 18 % METAMYELOCYTES 1 % Lymphocytes Manual 9 % REACTIVE LYMPHS 1 % Monocytes Manual 7 % Neutrophils Absolute 8.56 (H) K/uL Bands Manual 2.40 (H) K/uL Metamyelocytes Absolute 0.13 (H) K/uL Lymphocytes Absolute 1.20 K/uL REACTIVE LYMPHS ABS 0.13 K/uL Monocytes Absolute 0.93 (H) K/uL MORPHOLOGY RBC AND PLT MORPHOLOGY APPEAR NORMAL Basic metabolic panel [[id number]] (Abnormal) Collected: 01/17/17327 Specimen Information: Blood Updated: 01/17/17451 SODIUM 131 (L) mmol/L POTASSIUM 3.7 mmol/L CHLORIDE 87 (L) mmol/L CO2 31 mmol/L ANION GAP AGAP 17 mmol/L GLUCOSE 118 (H) mg/dL BUN 47 (H) mg/dL CREATININE 1.0 mg/dL BUN/CREAT 47 CALCIUM 9.0 mg/dL EGFR >60 mL/min/1.73m2 Magnesium [[id number]] Collected: 01/17/17327 Specimen Information: Blood Updated: 01/17/17451 MAGNESIUM 2.1 mg/dL Phosphorus [[id number]] Collected: 01/17/17327 Specimen Information: Blood Updated: 01/17/17 045 PHOSPHORUS 3.0 mg/dL Lactic acid, plasma [[id number]] Collected: 01/17/17328 Specimen Information: Blood Updated: 01/17/17 040 LACTIC ACID 1.6 mmol/L Protime-INR [[id number]] Collected: 01/17/17327 Specimen Information: Blood Updated: 01/17/17 0356 INR 1.1 Recent Labs Lab 01/19/17 0355 01/18/17 0425 01/17/[address] Abdomen Pelvis Without Contrast 01/17/2017 1. Mid to distal small bowel obstruction, of unclear etiology. 2. Nasogastric tube tip in the stomach. 3. Mild distention of the urinary bladder. 4. Previous cholecyste ctomy. 5. Fatty liver. 6. Mild atelectasis in the left lung base. X-ray Abdomen 1 View 01/18/2017 1. Nasogastric tube tip is suboptimally visualized, but appears to be stable in position. 2. Subsegmental atelectasis in the left lung base. X-ray Abdomen Ap 01/17/2017 1. Nasogastric tube tip in the stomach. Xr Abdomen 1 View 01/17/2017 Cannot exclude small bowel obstruction on this suboptimal supine view. If there is clinical concern for obstruction, consider CT. RADIA Electronically signed by Williams armendariz MD on Jan 17 2017 3:17AM Referring Provider Line: [phone] ID: [id number] Xr Abdomen 1 View 01/16/2017 Grossly negative supine 1-view abdomen x-ray. RADIA Electronically signed by Rich Cooper MD on Jan 16 2017 3:10AM Referring Provider Line: [phone] ID: [id number] Ct Head Without Contrast 01/14/2017 1. No acute intracranial findings. 2. Decreased postoperative pneumocephalus c ompared with 01/09/2017. 3. No definite evidence of over-shunting. Ct Cervical Spine Without Contrast 01/16/2017 1. Stable spinal alignment, status post posterior spine fusion from C3-T2 compar ed to the cervical spine CT from 01/12/2017. 2. Ankylosing spondylitis. RADIA Electronicall y signed by Yenifer Marie MD on Jan 16 2017 5:20AM Referring Provider Line: [phone] ID: [id number] PROBLEM LIST Principal Problem: Closed nondisplaced fracture of seventh cervical vertebra (HCC) Active Problems: Maxillary fracture, left side, initial encounter for open fracture Antiphospholipid syndrome (HCC) Controlled type 2 diabetes mellitus with hyperglycemia (HCC) Syncope and collapse Thyroid mass CSF leak Non morbid obesity ASSESSMENT & PLAN POD 10 C3-T 2 fusion POD 7 Lumbar drain placementfor CSF leak Wound dry LD to 5cc per hour Disposition: Home Code Status: Full Code Mendez Morrison MD 01/19/2017 6:40 PM onversio n Transaction, Provider Unknown - 01/19/2017 11:22 AM PDTFormatting of this note might be di fferent from the original. Progress Notes by Serena Daugherty RD, ALLYSSA at 01/19/17 1122 Author: Serena Daugherty RD, CD Service: (none) Author Type: Registered Dietitian Filed: 01/19/17 1123 Date of Service: 01/19/171121 Status: Signed Food Service Helper: Serena Daugherty RD, CD (Registered Dietitian) 01/19/17 1117 Subjective Timepoint Follow up (moderate risk) Pt c/o Pt has been NPO due to ileus which is now resolved. Narcotics being minimized. NG tu be is out and pt is passing flatus and having BMs. Pt reports that he is tolerating liquids well, appetite is fair. Fluid / Beverage Intake Oral Fluids Amount Drinking clear liquids ad farzana. Pt reports that he really likes water and has been thirsty. Currently on a 3 L/day free water restriction. Liquid Meal Replacement or Supplement Not receiving any supplements at this time due to res triction to clear liquids although pt is willing to try Boost Breeze. Had been receiving [address] st Glucose Control TID. Food Intake Amount of Food No solids at this time. Has been NPO/clears x 3 days. Type of Food / Meals Clear liquid diet. Micronutrient Intake Vitamin Intake D Mineral / Element Intake Calcium;Zinc Nutrition-Focused Physical Findings Overall Appearance Generalized dependent edema. Anthropometrics Weight change No new wt to assess. Recommend daily wts if possible. Will monitor trend. I/O s indicate that pt is approximately 1.1 L fluid positive. Biochemical data, medical tests, and procedures reviewed Biochemical data, medical tests, and procedures reviewed BG has been controlled in the 100s , Levemir and Humalog insulin ordered. K+ 3.4 (L), Phos 2.2 (L) - electrolyte replacement pr otocol ordered. BUN and Cr are WNL. Recommendations Recommended energy needs Advance diet as tolerated to diabetic maintenance diet. Encourage PO intake, consistent meals/snacks. Will arrange for Boost Breeze to be sent TID (at snack t imes). Once diet advanced can transition back to Boost Glucose Control TID to help optimize kcal/protein intake for healing. Further nutrition recs to follow as needed. Nutritional Risk Nutritional risk Moderate / high Follow up date 01/23/[address], CD, CNSC 01/19/2017 onhomar echeverria Transaction, Provider Unknown - 01/19/2017 10:49 AM PDT Progress Notes by Jose Rafael Arcos RPH at 01/19/17 104 Author: Jose Rafael Arcos RPH Service: Pharmacy Author Type: Pharmacist Filed: 01/19/171048 Date of Service: 01/19/171048 Status: Signed Food Service Helper: Jose Rafael Arcos RPH (Pharmacist) Antimicrobial Stewardship Team Note IV to PO Antimicrobial Conversion Recommendation Patient: Jose Rafael Walker Attending: Mendez Gordon* Admission Date: [id number] Current Antimicrobial Medications: Anti-infectives Start Dose/Rate Route Frequency Ordered Stop 01/17/170 ciprofloxacin (CIPRO) IVPB 400 mg Ordering Provider: BRI Hernandez 400 mg 200 mL/hr over 60 Minutes Intravenous Every 12 Hours 01/17/17 4902 Current Labs: Lab Results Component Value Date/Time WBC 9.45 01/19/2017 03:55 AM WBC 10.34 01/18/2017 04:25 AM WBC 13.35* 01/17/2017 03:28 AM PROCALCITONIN 0.11 01/18/2017 09:22 AM Current Indication: Treatment Indication: Other (Comment) Assessment/Recommendation: Stewardship Recommendation Type: Parenteral to oral conversion Recommendation: May consider changing IV ciprofloxacin to oral and adding a stop date. Than louisa (Stewardship Recommendation Review Status: Pending MD Evaluation) Submitted by: Jose Rafael Arcos RPH Disclaimer: The recommendations from the Antibiotic Stewardship Program are derived from a review of the medical records and not a history and/or physical. The recommendations are n ot a substitute for either clinical judgement or an infectious disease consultation and are not binding. Karen Haynes PA - 01/19/2017 10:30 AM PDTFormatting of this note might be different fro m the original. Progress Notes by Karen Khoury PA-C at 01/19/17 1030 Author: Karen Khoury PA-C Service: General Surgery Author Type: Physician Ananya istant - Certified Filed: 01/19/17 1032 Date of Service: 01/19/17 1030 Status: Attested Food Service Helper: Karen Khoury PA-C (Physician Director Loss Prevention - Certified) Cosigner: Fran Bernal DO at 01/19/17 1509 Attestation signed by Fran Bernal DO at 01/19/17 1509 Patient seen and examined independently, chart reviewed. I have made changes to the above note, where appropriate, and discussed the content and mahi nges with the author. Fran Bernal DO, FACS [facility] General Surgery Progress Note Hospital Day: LOS: 12 days Post-Op Day: 6 Days Post-Op Subjective Events Overnight: Patient denies any abdominal pain, denies any nausea or vomiting with liquid diet, passin g BM and flatus. Assessment and Plan 66YO male s/p C3-T2 spinal fusion 01/09/17, lumbar drain placement for CSF leak on 01/12/17 w ith improving ileus. Patient has soft abdomen and is passing BM and flatus and tolerating diet. General surgery will sign off at this time. Thank you for allowing me to participate in the care of this patient Scheduled Medications allopurinol 100 mg Oral Daily bisacodyl 10 mg Rectal Daily calcium carbonate-vitamin D 1 tablet Oral BID WC carbamide peroxide 10 drop Both Ears BID ciprofloxacin 400 mg Intravenous Q12H famotidine 20 mg Oral Nightly heparin (porcine) 5000 unit/0.5mL 5,000 Units Subcutaneous 3 times per day insulin detemir 30 Units Subcutaneous BID insulin lispro (human) 0-10 Units Subcutaneous TID AC insulin lispro (human) 0-5 Units Subcutaneous Nightly insulin lispro (human) 6 Units Subcutaneous TID AC [START ON 01/20/2017] levothyroxine 50 mcg Oral QAM AC [START ON 01/20/2017] lisinopril 20 mg Oral Daily pantoprazole 40 mg Intravenous QAM AC sodium chloride 10 mL Intravenous 2 times per day sodium chloride 1 g Oral TID WC zinc sulfate 220 mg Oral Daily Continuous Infusions dextrose dextrose PRN Medications acetaminophen OR acetaminophen, kodkukcezr-epjrnlthwerdb-qhojvfwu, carboxymethylcellulo se, cyclobenzaprine, dextrose, dextrose, dextrose, dextrose, docusate sodium OR docusate , glucagon, glucagon, HYDROmorphone OR HYDROmorphone, lactulose, magnesium sulfate OR* * magnesium sulfate OR magnesium sulfate, nystatin, nystatin, ondansetron OR ondanse saravanan, petrolatum, polyethylene glycol, potassium chloride OR potassium chloride OR p otassium chloride, simethicone, sodium chloride, [DISCONTINUED] phosphorus OR sodium mesfin sphate IVPB 20 mmol OR sodium phosphate IVPB 45 mmol, traMADol Objective Vital Signs: BP 166/72 mmHg | Pulse 75 | Temp(Src) 98 F (36.7 C) (Oral) | Resp 16 | Ht 1.778 m (5' 1 0") | Wt 119.4 kg (263 lb 3.7 oz) | BMI 37.77 kg/m2 | SpO2 97% Results for orders placed or performed during the hospital encounter of 01/06/17 (from the past 24 hour(s)) POCT glucose Collection Time: 01/18/17 5:04 PM Result Value Ref Range GLUCOSE,POC SCREEN 178 (H) 65 - 99 mg/dL Magnesium Collection Time: 01/18/17 5:07 PM Result Value Ref Range MAGNESIUM 2.2 1.7 - 2.4 mg/dL Phosphorus Collection Time: 01/18/17 5:07 PM Result Value Ref Range PHOSPHORUS 1.6 (L) 2.3 - 4.8 mg/dL Potassium Collection Time: 01/18/17 5:07 PM Result Value Ref Range POTASSIUM 3.7 3.5 - 4.9 mmol/L POCT glucose Collection Time: 01/18/17 9:35 PM Result Value Ref Range GLUCOSE,POC SCREEN 121 (H) 65 - 99 mg/dL Basic metabolic panel Collection Time: 01/19/17 3:55 AM Result Value Ref Range SODIUM 139 135 - 145 mmol/L POTASSIUM 3.4 (L) 3.5 - 4.9 mmol/L CHLORIDE 103 99 - 109 mmol/L CO2 25 23 - 32 mmol/L ANION GAP AGAP 14 5 - 20 mmol/L GLUCOSE 144 (H) 65 - 99 mg/dL BUN 22 8 - 25 mg/dL CREATININE 0.7 0.70 - 1.30 mg/dL BUN/CREAT 31 CALCIUM 7.7 (L) 8.5 - 10.5 mg/dL EGFR >60 >60 mL/min/1.73m2 CBC w/auto diff (reflex to manual) Collection Time: 01/19/17 3:55 AM Result Value Ref Range WBC 9.45 3.80 - 11.00 K/uL RBC 3.71 (L) 4.20 - 5.70 M/uL HGB 10.7 (L) 13.2 - 17.0 g/dL HCT 32.1 (L) 39.0 - 50.0 % MCV 86.4 80.0 - 100.0 fl MCH 28.9 27.0 - 34.0 pg MCHC 33.4 32.0 - 35.5 g/dL RDW SD 45.5 37 - 53 fl PLT 244 150 - 400 K/uL MPV 8.2 fl DIFF TYPE MANUAL Neutrophils Manual 67 % Bands 6 % Lymphocytes Manual 16 % Monocytes Manual 9 % Eosinophils Manual 2 % Neutrophils Absolute 6.33 1.90 - 7.40 K/uL Bands Manual 0.57 (H) 0.00 - 0.20 K/uL Lymphocytes Absolute 1.51 1.00 - 3.90 K/uL Monocytes Absolute 0.85 (H) 0.00 - 0.80 K/uL Eosinophils Absolute 0.19 0.00 - 0.50 K/uL MORPHOLOGY RBC AND PLT MORPHOLOGY APPEAR NORMAL Magnesium Collection Time: 01/19/17 3:55 AM Result Value Ref Range MAGNESIUM 2.1 1.7 - 2.4 mg/dL Phosphorus Collection Time: 01/19/17 3:55 AM Result Value Ref Range PHOSPHORUS 2.2 (L) 2.3 - 4.8 mg/dL Protime-INR Collection Time: 01/19/17 3:55 AM Result Value Ref Range INR 1.1 POCT glucose Collection Time: 01/19/17 6:05 AM Result Value Ref Range GLUCOSE,POC SCREEN 136 (H) 65 - 99 mg/dL Intake/Output Summary (Last 24 hours) at 01/19/17 1030 Last data filed at 01/19/17 0830 Gross per 24 hour Intake 3332.9 ml Output 1500 ml Net 1832.9 ml Physical Exam Constitutional: No distress, c-collar in place Cardiovascular: Normal rate. Pulmonary: Effort normal. No stridor. No respiratory distress. Abdominal: Soft. Non-distended abdomen, non-TTP throughout, hernia in RUQ. Neurological: Alert and oriented to person, place, and time. Psychiatric: He has a normal mood and affect His behavior is normal. Thought content farrukh manley Nursing note and vitals reviewed. Problem List Principal Problem: Closed nondisplaced fracture of seventh cervical vertebra (HCC) Active Problems: Maxillary fracture, left side, initial encounter for open fracture Antiphospholipid syndrome (HCC) Controlled type 2 diabetes mellitus with hyperglycemia (HCC) Syncope and collapse Thyroid mass CSF leak Non morbid obesity Signed: Karen Khoury PA-C Acute Care General Surgery Portions of this chart may have been created with voice recognition software. Occasional wr marie-word or "sound-alike" substitutions may have occurred, even after review, due to the inh erent limitations of voice recognition software. Please read the chart carefully and recogni ze, using context, where these substitutions have occurred. Personal communication is reques radha for any clarifications. onversio n Transaction, Provider Unknown - 01/19/2017 10:26 AM PDTFormatting of this note might be di fferent from the original. Case Management by JAMIE Davis at 01/19/17 1026 Author: JAMIE Davis Service: (none) Author Type: Garment Worker Filed: 01/19/17 1033 Date of Service: 01/19/17 1026 Status: Addendum Food Service Helper: JAMIE Davis (Garment Worker) Related Notes: Original Note by JAMIE Davis (Garment Worker) filed at 01/19/17 1030 CM met with patient to discuss discharge planning. Patent owns lift chair, 4ww, FWW and pérez s extensive family support who will provide 24/7 assist (gdtr/JUDY caregiver & grdson will be living with patient after discharge. PT reports she believes patient will be appropriate to return home after discharge, no recommendations. Patient's PCP at [facility] follows juan ve[place] Coumadin. JAMIE Davis Anais Morel PT - 01/19/2017 8:55 AM PDTFormatting of this note might be different from john rand original. Therapy Progress Note by Anais Foreman, PT at 01/19/17 0855 Author: Anais Foreman, PT Service: (none) Author Type: Physical Therapist Filed: 01/19/17 1106 Date of Service: 01/19/17854 Status: Signed Food Service Helper: Anais Foreman PT (Physical Therapist) 01/19/17 08 PT Last Visit PT Received On 01/19/17 Reason for Treatment Spinal surgery Requires PT Follow Up Yes Follow up PT Only? No Assistance Required 1 person Training Development Director Needed No Precautions Spinal Precautions TLSO on when upright;Cervical Other Precautions HOB elevated Other Comments Comments patient just completing toileting- agreed to PT st this time -with encouragement- initially voiced "terrible" pain, but decreased when ambulating- still very slow khalif -le ft in recliner- discussed with RN Cognition Overall Cognitive Status WFL Orientation Level Oriented Transfers Sit to/from Stand Moderate assist (to arise OR lower);Verbal instruction;x 1 person;Safety concerns Mobility Ambulation Assistance Minimal assist;Supervision;Verbal instruction;X1 Maximal Ambulation Distance (feet) 250ft Total Ambulation Distance (feet) 250ft Distance limited by? Patient's ability Pattern Alternating;Decreased khalif;Right swing foot doesn't pass stance foot;Left swing foot doesn't pass stance foot;Right dec toe clearance;Left dec toe clearance;Forward flexed; Wide base Assistive Device Walker front wheeled Supine Supine-Exercise Type Ankle pumps;Quad sets;Glut sets;SLR;ABD/ADD;Heel slides Supine-Exercise Comments 3-5 reps Modalities Modalities Other therapy Other Therapy ongoing education Activity Tolerance Activity Tolerance Patient limited by pain;Patient limited by fatigue Nurse Made Aware yes Restraints Initially in Place No (call roa and phone in reach) Plan Treatment/Interventions Continue per Primary PT POC Progress Slow progress, decreased activity tolerance Recommendation Recommendations SNF;Prior Setting;HH PT;HH OT Barriers to Discharge Pain;Physical Deficits Impacting Functional Harding;Self-care De ficits Impacting Functional Harding Recommendation Comments per patient- he wants to go home- stating he has lots of support- b ut he might benefit from short term skilled therapies in SNF- if family available- then home and home health would be appropriate Matt oLve MD - 01/19/2017 8:40 AM PDTFormatting of this note might be different from the tomasa vega. Progress Notes by Matt Fong MD at 01/19/17839 Author: Matt Fong MD Service: Senior Staff Psychologist Author Type: Physician Filed: 01/19/1753 Date of Service: 01/19/17839 Status: Signed Food Service Helper: Matt Fong MD (Physician) [facility] Service: Senior Staff Psychologist Progress Note Jose Rafael Walker 66 y.o. Hospital Day: LOS: 12 days Post-Op Day: Day of Surgery Consulting Physicians Treatment Team: Consulting Physician: Mendez Morrison MD Consulting Physician: Jeovany Jennings MD Consulting Physician: Acute Care General Surgery Admitting Provider: Moni Dumont DO SUBJECTIVE Patient Summary: From Dr Dumont's H&P: The patient is a 66 y.o. male with significant past medical history of ankylosing spondylit is, diabetes type II, deep vein thrombosis, iron deficiency anemia, testicular hypofunction, obesity, hypertension, dyslipidemia, abdomen disorder, transient ischemic attack, non ambul atory ankylosing spondylitis, who presents to transfer from [facility] with a C7 fracture, left maxillary sinus fracture, thyroid mass and syncope. Main complaints at the [facility] facility were left sided face swelling, neck pain, confusion and difficulty remembe ring anything. Per history, patient woke up in a chair, went into the bathroom and found thi ngs in disarray. Granddaughter was then notified by neighbors that they heard a crashing berta nd earlier around 1:30. During the day patient had being a but was in the his usual state of health, came home and went to sleep on his recliner. He cannot remember anything th at happened, next thing that he was clear in his mind was his granddaughter asking questions . Patient denies any chest pain, shortness of breath, headache, dizziness, confusion, fever, chills or illness prior to his syncopal episode/ amnestic event. Reports chronic right shou lder pain. Reports neck pain with movement of his legs or any part of his body. He denies any dysphagi a. ED findings: C7 fracture, leukocytosis, hypokalemia, thyroid mass, left maxillary sinus fra cture [facility] ED treatment: Dilaudid, morphine, cyclobenzaprine From Dr Saravia's most recent progress note: 66-year-old gentleman with past medical history of ankylosing spondylitis, diabetes mellitu s type II on insulin, history of deep vein thrombosis, iron deficiency anemia, hypertension hyperlipidemia history of transient ischemic attack who had a fall in his bathroom and was t aken to the hospital with neck pain found to have C7 fracture, left maxillary sinus fracture , enlarged left thyroid lobe suggesting goiter a large nodule and patient does not recall th e circumstances of all though he admitted that he takes morphine which might have makes him loopy and had a fall because affect. Patient underwent C3-C4, 3-5, 5-6, 6-7, C7-T1, T1-T2 posterior pedicle L mass lesion by Dr. Rivera on 09 january and postoperatively patient was intubated for airways protection and transferred to ICU and was transferred back to the floor on 11 january. Patient had a syncope workup including echocardiogram which showed normal ejection fraction ,no significant valvular abnormalities and CT neck was negative for any stenosis, aneurysm or dissection ICU Timeline: 01/12: Admitted to ICU after placement of Lumbar drain by Neurosurgery due to CSF leak 01/13: Lumbar drain remains in place with hourly drainage of 15mls of CSF 01/14: Lumbar drain in place. Working with PT daily 01/16: Lumbar Drain was leaking from the incision site. Dr. Morrison to come later toda y and put in a suture to close the leak site. 01/18: Paitent's lumbar drain in place. No acute leaks noted. Patient's drain rate reduc ed to 10cc/hr. 01-19: drain down to 5 ml/hr, ileus resolved. Events Overnight: ileus resolved, draining 10 ml/hr from lumbar drain, c/o rue tinglin g sensation SCHEDULED MEDICATIONS allopurinol 100 mg Oral Daily bisacodyl 10 mg Rectal Daily calcium carbonate-vitamin D 1 tablet Oral BID WC carbamide peroxide 10 drop Both Ears BID ciprofloxacin 400 mg Intravenous Q12H famotidine 20 mg Oral Nightly heparin (porcine) 5000 unit/0.5mL 5,000 Units Subcutaneous 3 times per day insulin detemir 30 Units Subcutaneous BID insulin lispro (human) 0-10 Units Subcutaneous TID AC insulin lispro (human) 0-5 Units Subcutaneous Nightly insulin lispro (human) 6 Units Subcutaneous TID AC levothyroxine 26 mcg Intravenous Daily lidocaine buffered 1% 0.5 mL Intradermal Once lisinopril 10 mg Oral Daily pantoprazole 40 mg Intravenous QAM AC sodium chloride 10 mL Intravenous 2 times per day sodium chloride 1 g Oral TID WC zinc sulfate 220 mg Oral Daily CONTINUOUS INFUSIONS dextrose dextrose OBJECTIVE VITAL SIGNS Temp: [98 F (36.7 C)-98.2 F (36.8 C)] 98.2 F (36.8 C) Heart Rate: [72-96] 75 Resp: [16-20] 16 BP: (103-178)/(54-79) 166/72 mmHg Intake/Output Summary (Last 24 hours) at 01/19/17 0841 Last data filed at 01/19/17 0700 Gross per 24 hour Intake 3332.9 ml Output 785 ml Net 2547.9 ml EXAM GEN: Awake, alert, oriented x4. laying in bed with C-Collar on. NEURO: PERRL, EOMI, no facial asymmetry, moves all extremities well with equal strength. Se nsation intact except he c/o burning sensation right forearm GCS: 15 HEENT: sclerae clear, nonicteric, oral mmm, pink NECK: supple, trachea midline, C Collar in place CV: Heart tones regular. S1/S2, no murmur, rub or gallop, peripheral pulses palpable, cap r efill brisk LUNGS: Clear b/l, no wheezing, rales or rhonchi, symmetric chest expansion ABD: obese abdomen. active bowel sounds, abd .less distended , No pain on palpation. EXTR: 1+ BLE edema, no clubbing or cyanosis SKIN: warm, dry, no rash or mottling; no e/o skin breakdown over the occiput, scapulae, elb ows, sacrum or heels. Surgical incisions dressed and sre dry.lumbar drain in place LINES/TUBES: PIV Right wrist, Midline left, Lumbar drain 5-23 DATA Recent Labs Lab 01/19/1735401/18/1742401/17/1732701/16/17 0435 WBC 9.45 10.34 13.35* 11.72* RBC 3.71* 3.81* 4.02* 3.94* HGB 10.7* 11.2* 11.8* 11.6* HCT 32.1* 32.1* 33.9* 33.5* MCV 86.4 84.3 84.4 85.0 MCH 28.9 29.5 29.5 29.4 MCHC 33.4 34.9 34.9 34.6 RDW 45.5 44.6 45.1 44.2 PLT 244 264 275 262 MPV 8.2 7.6 8.2 7.9 BANDSABS 0.57* 1.96* 2.40* -- NEUTROABS -- -- -- 9.67* LYMPHSABS -- -- -- 0.89* MONOSABS -- -- -- 0.99* BASOSABS -- -- -- 0.02 EOSABS -- -- -- 0.16 MORPH RBC AND PLT MORPHOLOGY APPEAR NORMAL RBC AND PLT MORPHOLOGY APPEAR NORMAL RBC AND PLT MORPHOLOGY APPEAR NORMAL -- Recent Labs Lab 01/19/1735401/18/17 1707 01/18/1742401/17/17327 NA 139 -- 132* 131* K 3.4* 3.7 3.4* 3.7 CL 103 -- 95* 87* CO2 25 -- 28 31 ANIONGAP 14 -- 13 17 GLUF 144* -- 118* 118* BUN 22 -- 43* 47* CREATININE 0.7 -- 0.87 1.0 BCR 31 -- 49 47 CA 7.7* -- 8.1* 9.0 EGFR >60 -- >60 >60 PHOS 2.2* 1.6* 1.5* 3.0 MG 2.1 2.2 2.5* 2.1 Recent Labs Lab 01/19/1735401/18/1742401/17/17327 INR 1.1 1.1 1.1 IMAGING Xr Abdomen 1 View 01/17/2017 Cannot exclude small bowel obstruction on this suboptimal supine view. If there is clinical concern for obstruction, consider CT. RADIA Electronically signed by Williams armendariz MD on Jan 17 2017 3:17AM Referring Provider Line: [phone] ID: [id number] Xr Abdomen 1 View 01/16/2017 Grossly negative supine 1-view abdomen x-ray. RADIA Electronically signed by Rich Cooper MD on Jan 16 2017 3:10AM Referring Provider Line: [phone] ID: [id number] Ct Cervical Spine Without Contrast 01/16/2017 1. Stable spinal alignment, status post posterior spine fusion from C3-T2 compar ed to the cervical spine CT from 01/12/2017. 2. Ankylosing spondylitis. RADIA Electronicall y signed by Yenifer Marie MD on Jan 16 2017 5:20AM Referring Provider Line: [phone] ID: [id number] PROBLEM LIST Principal Problem: Closed nondisplaced fracture of seventh cervical vertebra (HCC) Active Problems: Maxillary fracture, left side, initial encounter for open fracture Antiphospholipid syndrome (HCC) Controlled type 2 diabetes mellitus with hyperglycemia (HCC) Syncope and collapse Thyroid mass CSF leak Non morbid obesity Resolved Problems: * No resolved hospital problems. * ASSESSMENT & PLAN NEURO: CSF Leak: Lumbar drain placed by Neurosurgery 01/12. Drain management at 5cc/hr. Keep HOB at 70 degrees. Ambulation encouraged. Monitor neuro status closely. Plan to clamp drain in am. Cervical Fracture S/P fusion C3 to T2. Remains in C collar. Post surgical management by NS. CAM ICU each shift CV: Hypertension: continue lisinopril. PULM: No acute issues. On room air. GI/NUTRITION: Suspected small bowel obstruction: resolved, try to minimize natcs, using tramadol. Rosy ent passing flatus and had a small bowel movement daily. ngt out, tolerating po clears, adva nce diet. RENAL/LYTES: Hyponatremia: improving. Fluid restriction removed. Avoid nephrotoxins Monitor electrolytes and replace as per ICU protocol ID: Patient was started on prophylaxis with cipro IV 400mg Q12H. Will monitor WBC and vital signs HEME: Antiphospholipid Syndrome: Chronic anticoagulation to resume as per Neurosurgery and Hem atology. SQ heparin for now. ENDO: DM2 with fdc insulin use: Goal BG 80-180; continue treatment with SSI and Levemir 30 Units SC BID Hypothyroidism: Synthroid changed to IV synthroid at 25mcg. MUSC/SKIN: Routine skin care as per nursing protocol Turn/reposition in bed Q 2 hours PT/OT to continue treatment PROPHYLAXIS: Stress ulcer prophylaxis: PPI DVT prophylaxis: SCD's; heparin SQ. Resume chronic anticoagulation as per Neurosurgery VAP bundle: N/A Disposition: ICU plan of care as above. Please bill 30 mn of cct. Code Status: Full Code MATT FONG MD 01/19/2017 onversion Yuan saction, Provider Unknown - 01/18/2017 3:40 PM PDTFormatting of this note might be differen t from the original. Therapy Progress Note by Paul Gonzales PT at 01/18/17 8580 Author: Paul Gonzales PT Service: (none) Author Type: Physical Therapist Filed: 01/18/17 3034 Date of Service: 01/18/171539 Status: Signed Food Service Helper: Paul Gonzales PT (Physical Therapist) 01/18/17 1542 PT Last Visit PT Received On 01/18/17 Reason for Treatment Spinal surgery Requires PT Follow Up Yes Follow up PT Only? No Assistance Required 1 person Precautions Spinal Precautions Cervical collar on when upright Other Precautions HOB elevated to 60-70 deg at all times, Lumbar drain, Fall risk Other Comments Comments pt. is in the restroom initially and agreeable to therapy. pt. sit to stand from toilet Mod/Max A, pt. then ambulated to recliner and needed to rest. Reviewed sternal preca utions with pt. then pt. ambulated 200' with FWW with very slow khalif and reports increas ed pain in the neck. pt. seated in recliner with call light in reach and student nurse in r oom. Cognition Overall Cognitive Status WFL Orientation Level Oriented Transfers Sit to/from Stand Moderate assist (to arise OR lower) Mobility Ambulation Assistance Minimal assist Maximal Ambulation Distance (feet) 200 Total Ambulation Distance (feet) 200 Distance limited by? Patient's ability Pattern Alternating;Decreased khalif;Right swing foot doesn't pass stance foot;Left swing foot doesn't pass stance foot;Forward flexed Assistive Device Walker front wheeled Activity Tolerance Activity Tolerance Patient limited by fatigue;Patient limited by pain Nurse Made Aware yes Safety Devices Safety Devices in Place (call light in reach) Restraints Initially in Place No Plan Treatment/Interventions Continue per Primary PT POC Progress Slow progress, decreased activity tolerance Recommendation Recommendations SNF Barriers to Discharge Physical Deficits Impacting Functional Harding;Self-care Deficit s Impacting Functional Harding Recommendation Comments pt. at this point would be most appropriate to go to SNF to increas e funcitonal mobility to increase independence Mendez Oconnor MD - 01/18/2017 1:13 PM PDT Progress Notes by Mendez Morrison MD at 01/18/17 1313 Author: Mendez Morrison MD Service: Neurosurgery Author Type: Physician Filed: 01/21/17 1237 Date of Service: 01/18/17 1313 Status: Signed Food Service Helper: Mendez Morrison MD (Physician) [facility] Service: Neurosurgery Progress Note Hospital Day: LOS: 11 days Post-Op Day: 6 Days Post-Op Surgery/Procedure: Procedure(s) (LRB): LUMBAR - DRAINAGE (N/A) SUBJECTIVE Patient Summary: Resolving illeus, Tolerating LD @ 15 cc per hour Events Overnight: No acute events Scheduled Medications allopurinol 100 mg Oral Daily bisacodyl 10 mg Rectal Daily calcium carbonate-vitamin D 1 tablet Oral BID WC ciprofloxacin 400 mg Intravenous Q12H cyclobenzaprine 10 mg Oral TID famotidine 20 mg Oral Nightly heparin (porcine) 5000 unit/0.5mL 5,000 Units Subcutaneous 3 times per day insulin detemir 30 Units Subcutaneous BID insulin lispro (human) 0-10 Units Subcutaneous TID AC insulin lispro (human) 0-5 Units Subcutaneous Nightly insulin lispro (human) 6 Units Subcutaneous TID AC levothyroxine 26 mcg Intravenous Daily lidocaine buffered 1% 0.5 mL Intradermal Once lisinopril 10 mg Oral Daily morphine 60 mg Oral 2 times per day pantoprazole 40 mg Intravenous QAM AC sodium chloride 10 mL Intravenous 2 times per day sodium chloride 1 g Oral TID WC zinc sulfate 220 mg Oral Daily Continuous Infusions dextrose dextrose dextrose 5 % and 0.45 % NaCl 50 mL/hr at 01/17/176 PRN Medications acetaminophen OR acetaminophen, pgydvzyymh-vzzmznmxisxnm-pltmzuhw, carboxymethylcellulo se, dextrose, dextrose, dextrose, dextrose, docusate sodium OR docusate, glucagon, gluca alaina, HYDROmorphone OR HYDROmorphone, lactulose, magnesium sulfate OR magnesium sulfa te OR magnesium sulfate, morphine, nystatin, nystatin, ondansetron OR ondansetron, p etrolatum, polyethylene glycol, potassium chloride OR potassium chloride OR potassiu m chloride, simethicone, sodium chloride, [DISCONTINUED] phosphorus OR sodium phosphate IVPB 20 mmol OR sodium phosphate IVPB 45 mmol OBJECTIVE Vital Signs: BP 103/54 mmHg | Pulse 75 | Temp(Src) 98.1 F (36.7 C) (Oral) | Resp 18 | Ht 1.778 m (5' 10") | Wt 119.4 kg (263 lb 3.7 oz) | BMI 37.77 kg/m2 | SpO2 96% Ox3 craft demonstrator intact 5/5 x4 Sensation intact No radicular pain Wound CDI DATA Recent Labs Lab 01/18/1742401/17/17 0328 01/16/17 043 WBC 10.34 13.35* 11.72* RBC 3.81* 4.02* 3.94* HGB 11.2* 11.8* 11.6* HCT 32.1* 33.9* 33.5* MCV 84.3 84.4 85.0 MCH 29.5 29.5 29.4 MCHC 34.9 34.9 34.6 RDW 44.6 45.1 44.2 PLT 264 275 262 MPV 7.6 8.2 7.9 DIFFTYPE MANUAL MANUAL AUTOMATED Results Procedure Component Value Units Date/Time TSH reflex [[id number]] Collected: 01/18/17424 TSH REFLEX 1.78 uIU/mL Updated: 01/18/17 1118 Procalcitonin [[id number]] Collected: 01/18/17921 PROCALCITONIN 0.11 ng/mL Updated: 01/18/17 1003 Septic Lactic Acid [[id number]] Collected: 01/18/17921 LACTIC ACID 1.0 mmol/L Updated: 05/29/17 0953 POCT glucose [[id number]] (Abnormal) Collected: 01/18/17 06 GLUCOSE,POC SCREEN 127 (H) mg/dL Updated: 01/18/17622 CBC w/auto diff (reflex to manual) [[id number]] (Abnormal) Collected: 01/18/17424 Specimen Information: Blood Updated: 01/18/17513 WBC 10.34 K/uL RBC 3.81 (L) M/uL HGB 11.2 (L) g/dL HCT 32.1 (L) % MCV 84.3 fl MCH 29.5 pg MCHC 34.9 g/dL RDW SD 44.6 fl PLT 264 K/uL MPV 7.6 fl DIFF TYPE MANUAL Neutrophils Manual 64 % Bands 19 % Lymphocytes Manual 8 % Monocytes Manual 9 % Neutrophils Absolute 6.62 K/uL Bands Manual 1.96 (H) K/uL Lymphocytes Absolute 0.83 (L) K/uL Monocytes Absolute 0.93 (H) K/uL Platelet Estimate ADEQUATE MORPHOLOGY RBC AND PLT MORPHOLOGY APPEAR NORMAL Basic metabolic panel [[id number]] (Abnormal) Collected: 01/18/17424 Specimen Information: Blood Updated: 01/18/17 050 SODIUM 132 (L) mmol/L POTASSIUM 3.4 (L) mmol/L CHLORIDE 95 (L) mmol/L CO2 28 mmol/L ANION GAP AGAP 13 mmol/L GLUCOSE 118 (H) mg/dL BUN 43 (H) mg/dL CREATININE 0.87 mg/dL BUN/CREAT 49 CALCIUM 8.1 (L) mg/dL EGFR >60 mL/min/1.73m2 Magnesium [[id number]] (Abnormal) Collected: 01/18/17424 Specimen Information: Blood Updated: 01/18/17 0501 MAGNESIUM 2.5 (H) mg/dL Phosphorus [[id number]] (Abnormal) Collected: 01/18/17424 Specimen Information: Blood Updated: 01/18/17 0501 PHOSPHORUS 1.5 (L) mg/dL Protime-INR [[id number]] Collected: 01/18/17424 Specimen Information: Blood Updated: 01/18/17 0452 INR 1.1 POCT glucose [[id number]] (Abnormal) Collected: 01/17/175 GLUCOSE,POC SCREEN 124 (H) mg/dL Updated: 01/18/17 0419 POCT glucose [[id number]] (Abnormal) Collected: 01/17/17 1626 GLUCOSE,POC SCREEN 140 (H) mg/dL Updated: 01/17/17 1633 POCT glucose [[id number]] (Abnormal) Collected: 01/17/17 1132 GLUCOSE,POC SCREEN 171 (H) mg/dL Updated: 01/17/17 1150 POCT glucose [[id number]] (Abnormal) Collected: 01/17/17 0824 GLUCOSE,POC SCREEN 145 (H) mg/dL Updated: 01/17/17 0838 POCT glucose [[id number]] Collected: 01/16/17 2136 GLUCOSE,POC SCREEN 94 mg/dL Updated: 01/17/17 0608 CBC w/auto diff (reflex to manual) [[id number]] (Abnormal) Collected: 01/17/17327 Specimen Information: Blood Updated: 01/17/17 0505 WBC 13.35 (H) K/uL RBC 4.02 (L) M/uL HGB 11.8 (L) g/dL HCT 33.9 (L) % MCV 84.4 fl MCH 29.5 pg MCHC 34.9 g/dL RDW SD 45.1 fl PLT 275 K/uL MPV 8.2 fl DIFF TYPE MANUAL Neutrophils Manual 64 % Bands 18 % METAMYELOCYTES 1 % Lymphocytes Manual 9 % REACTIVE LYMPHS 1 % Monocytes Manual 7 % Neutrophils Absolute 8.56 (H) K/uL Bands Manual 2.40 (H) K/uL Metamyelocytes Absolute 0.13 (H) K/uL Lymphocytes Absolute 1.20 K/uL REACTIVE LYMPHS ABS 0.13 K/uL Monocytes Absolute 0.93 (H) K/uL MORPHOLOGY RBC AND PLT MORPHOLOGY APPEAR NORMAL Basic metabolic panel [[id number]] (Abnormal) Collected: 01/17/17 0328 Specimen Information: Blood Updated: 01/17/17 0452 SODIUM 131 (L) mmol/L POTASSIUM 3.7 mmol/L CHLORIDE 87 (L) mmol/L CO2 31 mmol/L ANION GAP AGAP 17 mmol/L GLUCOSE 118 (H) mg/dL BUN 47 (H) mg/dL CREATININE 1.0 mg/dL BUN/CREAT 47 CALCIUM 9.0 mg/dL EGFR >60 mL/min/1.73m2 Magnesium [[id number]] Collected: 01/17/17327 Specimen Information: Blood Updated: 01/17/17 0452 MAGNESIUM 2.1 mg/dL Phosphorus [[id number]] Collected: 01/17/17327 Specimen Information: Blood Updated: 01/17/17 045 PHOSPHORUS 3.0 mg/dL Lactic acid, plasma [[id number]] Collected: 01/17/17328 Specimen Information: Blood Updated: 01/17/17 0401 LACTIC ACID 1.6 mmol/L Protime-INR [[id number]] Collected: 01/17/17327 Specimen Information: Blood Updated: 01/17/17 0356 INR 1.1 Potassium [[id number]] Collected: 01/16/17 174 Specimen Information: Blood Updated: 01/16/17 1817 POTASSIUM 3.8 mmol/L POCT glucose [[id number]] Collected: 01/16/17 1639 GLUCOSE,POC SCREEN 88 mg/dL Updated: 01/16/17 1801 POCT glucose [[id number]] (Abnormal) Collected: 01/16/17 1133 GLUCOSE,POC SCREEN 106 (H) mg/dL Updated: 01/16/17 1140 Potassium [[id number]] (Abnormal) Collected: 01/16/17 0845 Specimen Information: Blood Updated: 01/16/17 0919 POTASSIUM 3.2 (L) mmol/L POCT glucose [[id number]] (Abnormal) Collected: 01/16/17 0535 GLUCOSE,POC SCREEN 125 (H) mg/dL Updated: 01/16/17 0614 Phosphorus [[id number]] Collected: 01/16/17 043 Specimen Information: Blood Updated: 01/16/17 0531 PHOSPHORUS 3.2 mg/dL Basic metabolic panel [[id number]] (Abnormal) Collected: 01/16/17434 Specimen Information: Blood Updated: 01/16/17 0531 SODIUM 130 (L) mmol/L POTASSIUM 3.4 (L) mmol/L CHLORIDE 91 (L) mmol/L CO2 27 mmol/L ANION GAP AGAP 15 mmol/L GLUCOSE 121 (H) mg/dL BUN 51 (H) mg/dL CREATININE 1.1 mg/dL BUN/CREAT 46 CALCIUM 9.2 mg/dL EGFR >60 mL/min/1.73m2 Magnesium [[id number]] Collected: 01/16/17434 Specimen Information: Blood Updated: 01/16/17 0531 MAGNESIUM 2.0 mg/dL CBC w/auto diff (reflex to manual) [[id number]] (Abnormal) Collected: 01/16/17434 Specimen Information: Blood Updated: 01/16/17 0524 WBC 11.72 (H) K/uL RBC 3.94 (L) M/uL HGB 11.6 (L) g/dL HCT 33.5 (L) % MCV 85.0 fl MCH 29.4 pg MCHC 34.6 g/dL RDW SD 44.2 fl PLT 262 K/uL MPV 7.9 fl DIFF TYPE AUTOMATED NEUTROPHILS 82.46 % LYMPHOCYTES 7.61 % MONOCYTES 8.41 % EOSINOPHILS 1.34 % BASOPHILS 0.18 % NEUTROPHILS ABS 9.67 (H) K/uL LYMPHOCYTES ABS 0.89 (L) K/uL MONOCYTES ABS 0.99 (H) K/uL EOSINOPHILS ABS 0.16 K/uL BASOPHILS ABS 0.02 K/uL Protime-INR [[id number]] Collected: 01/16/17434 Specimen Information: Blood Updated: 01/16/17 0507 INR 1.1 POCT glucose [[id number]] (Abnormal) Collected: 01/15/17 2048 GLUCOSE,POC SCREEN 131 (H) mg/dL Updated: 01/16/17 0450 POCT glucose [[id number]] (Abnormal) Collected: 01/15/17 1654 GLUCOSE,POC SCREEN 188 (H) mg/dL Updated: 01/15/17 1705 Sodium [[id number]] (Abnormal) Collected: 01/15/17 1355 Specimen Information: Blood Updated: 01/15/17 1430 SODIUM 126 (L) mmol/L Recent Labs Lab 01/18/17 0425 01/17/17 0328 01/16/17 [address] Ab[address]en Pelvis Without Contrast 01/17/2017 1. Mid to distal small bowel obstruction, of unclear etiology. 2. Nasogastric tube tip in the stomach. 3. Mild distention of the urinary bladder. 4. Previous cholecyste ctomy. 5. Fatty liver. 6. Mild atelectasis in the left lung base. X-ray Abdomen 1 View 01/18/2017 1. Nasogastric tube tip is suboptimally visualized, but appears to be stable in position. 2. Subsegmental atelectasis in the left lung base. X-ray Abdomen Ap 01/17/2017 1. Nasogastric tube tip in the stomach. Xr Abdomen 1 View 01/17/2017 Cannot exclude small bowel obstruction on this suboptimal supine view. If there is clinical concern for obstruction, consider CT. [facility] Electronically signed by Williams armendariz MD on Jan 17 2017 3:17AM Referring Provider Line: [phone] ID: [id number] Xr Abdomen 1 View 01/16/2017 Grossly negative supine 1-view abdomen x-ray. RADIA Electronically signed by Rich Cooper MD on Jan 16 2017 3:10AM Referring Provider Line: [phone] ID: [id number] Ct Head Without Contrast 01/14/2017 1. No acute intracranial findings. 2. Decreased postoperative pneumocephalus c ompared with 01/09/2017. 3. No definite evidence of over-shunting. Ct Cervical Spine Without Contrast 01/16/2017 1. Stable spinal alignment, status post posterior spine fusion from C3-T2 compar ed to the cervical spine CT from 01/12/2017. 2. Ankylosing spondylitis. RADIA Electronicall y signed by Yenifer Marie MD on Jan 16 2017 5:20AM Referring Provider Line: [phone] ID: [id number] Ct Cervical Spine Without Contrast 01/12/2017 1. Previously seen surgical drain has been removed. 2. Right-sided pedicle scr ew at C7 traverses the superior margin of the C7-T1 neural foramen and could affect the exit ing right C8 nerve root. Right-sided pedicle screw at T1 traverses the T1-2 neural foramen centrally and may be compressing the exiting right T1 nerve root. These findings are unchan ged from the previous exam. 3. All other transpedicular screws are in satisfactory position . 4. Enlarged left thyroid lobe suggesting goiter or large nodule. 5. Atrophy of the right submandibular gland with a 6 mm sialolith seen within the gland. LEM LIST Principal Problem: Closed nondisplaced fracture of seventh cervical vertebra (HCC) Active Problems: Maxillary fracture, left side, initial encounter for open fracture Antiphospholipid syndrome (HCC) Controlled type 2 diabetes mellitus with hyperglycemia (HCC) Syncope and collapse Thyroid mass CSF leak Non morbid obesity ASSESSMENT & PLAN POD 9 C3-T 2 fusion POD 7 Lumbar drain placement for CSF leak Wound dry Ambulating with PT LD to 10cc per hour Disposition: Unknown Code Status: Full Code Mendez Morrison MD 01/18/2017 1:13 PM Diamante Haynes PA - 01/18/2017 10:18 AM PDTFormatting of this note might be different from t lynda original. Progress Notes by Karen Khoury PA-C at 01/18/17 1018 Author: Karen Khoury PA-C Service: General Surgery Author Type: Physician Ass istant - Certified Filed: 01/18/17 1022 Date of Service: 01/18/17 1018 Status: Attested Food Service Helper: Karen Khoury PA-C (Physician Director Loss Prevention - Certified) Cosigner: Fran Bernal DO at 01/18/17 1707 Attestation signed by Fran Bernal DO at 01/18/17 1707 I have made changes to the above note, where appropriate, and discussed the content and mahi nges with the author. Farn Bernal DO, [facility] General Surgery Progress Note Hospital Day: LOS: 11 days Post-Op Day: 6 Days Post-Op Subjective Events Overnight: Patient had Large Bm yesterday and small BM today and admits to passing gas. Patient jeff es any abdominal pain but remains mildly distended. NG output was high on initial NG tube insertion but was only 400 over night and has had not rula out this AM. Assessment and Plan 66YO male s/p C3-T2 spinal fusion 01/09/17, lumbar drain placement for CSF leak on 01/12/17 w ith improving ileus. Discussed patient with Senior Staff Psychologist EVERARDO NG Clear liquid diet Continue pain control Scheduled Medications allopurinol 100 mg Oral Daily bisacodyl 10 mg Rectal Daily calcium carbonate-vitamin D 1 tablet Oral BID WC ciprofloxacin 400 mg Intravenous Q12H cyclobenzaprine 10 mg Oral TID famotidine 20 mg Oral Nightly heparin (porcine) 5000 unit/0.5mL 5,000 Units Subcutaneous 3 times per day insulin detemir 30 Units Subcutaneous BID insulin lispro (human) 0-10 Units Subcutaneous TID AC insulin lispro (human) 0-5 Units Subcutaneous Nightly insulin lispro (human) 6 Units Subcutaneous TID AC levothyroxine 50 mcg Intravenous Daily lidocaine buffered 1% 0.5 mL Intradermal Once lisinopril 10 mg Oral Daily morphine 60 mg Oral 2 times per day pantoprazole 40 mg Intravenous QAM AC sodium chloride 10 mL Intravenous 2 times per day sodium chloride 1 g Oral TID WC zinc sulfate 220 mg Oral Daily Continuous Infusions dextrose dextrose dextrose 5 % and 0.45 % NaCl 50 mL/hr at 01/17/17 2206 PRN Medications acetaminophen OR acetaminophen, voswarktxp-zgkfjqkjxmqxu-gvywatst, carboxymethylcellulo se, dextrose, dextrose, dextrose, dextrose, docusate sodium OR docusate, glucagon, gluca alaina, HYDROmorphone OR HYDROmorphone, lactulose, magnesium sulfate OR magnesium sulfa te OR magnesium sulfate, morphine, nystatin, nystatin, ondansetron OR ondansetron, p etrolatum, polyethylene glycol, potassium chloride OR potassium chloride OR potassiu m chloride, simethicone, sodium chloride, [DISCONTINUED] phosphorus OR sodium phosphate IVPB 20 mmol OR sodium phosphate IVPB 45 mmol Objective Vital Signs: BP 111/54 mmHg | Pulse 72 | Temp(Src) 98.2 F (36.8 C) (Oral) | Resp 18 | Ht 1.778 m (5' 10") | Wt 119.4 kg (263 lb 3.7 oz) | BMI 37.77 kg/m2 | SpO2 96% Results for orders placed or performed during the hospital encounter of 01/06/17 (from the past 24 hour(s)) POCT glucose Collection Time: 01/17/17 11:32 AM Result Value Ref Range GLUCOSE,POC SCREEN 171 (H) 65 - 99 mg/dL POCT glucose Collection Time: 01/17/17 4:26 PM Result Value Ref Range GLUCOSE,POC SCREEN 140 (H) 65 - 99 mg/dL POCT glucose Collection Time: 01/17/17 10:05 PM Result Value Ref Range GLUCOSE,POC SCREEN 124 (H) 65 - 99 mg/dL Basic metabolic panel Collection Time: 01/18/17 4:25 AM Result Value Ref Range SODIUM 132 (L) 135 - 145 mmol/L POTASSIUM 3.4 (L) 3.5 - 4.9 mmol/L CHLORIDE 95 (L) 99 - 109 mmol/L CO2 28 23 - 32 mmol/L ANION GAP AGAP 13 5 - 20 mmol/L GLUCOSE 118 (H) 65 - 99 mg/dL BUN 43 (H) 8 - 25 mg/dL CREATININE 0.87 0.70 - 1.30 mg/dL BUN/CREAT 49 CALCIUM 8.1 (L) 8.5 - 10.5 mg/dL EGFR >60 >60 mL/min/1.73m2 CBC w/auto diff (reflex to manual) Collection Time: 01/18/17 4:25 AM Result Value Ref Range WBC 10.34 3.80 - 11.00 K/uL RBC 3.81 (L) 4.20 - 5.70 M/uL HGB 11.2 (L) 13.2 - 17.0 g/dL HCT 32.1 (L) 39.0 - 50.0 % MCV 84.3 80.0 - 100.0 fl MCH 29.5 27.0 - 34.0 pg MCHC 34.9 32.0 - 35.5 g/dL RDW SD 44.6 37 - 53 fl PLT 264 150 - 400 K/uL MPV 7.6 fl DIFF TYPE MANUAL Neutrophils Manual 64 % Bands 19 % Lymphocytes Manual 8 % Monocytes Manual 9 % Neutrophils Absolute 6.62 1.90 - 7.40 K/uL Bands Manual 1.96 (H) 0.00 - 0.20 K/uL Lymphocytes Absolute 0.83 (L) 1.00 - 3.90 K/uL Monocytes Absolute 0.93 (H) 0.00 - 0.80 K/uL Platelet Estimate ADEQUATE MORPHOLOGY RBC AND PLT MORPHOLOGY APPEAR NORMAL Magnesium Collection Time: 01/18/17 4:25 AM Result Value Ref Range MAGNESIUM 2.5 (H) 1.7 - 2.4 mg/dL Phosphorus Collection Time: 01/18/17 4:25 AM Result Value Ref Range PHOSPHORUS 1.5 (L) 2.3 - 4.8 mg/dL Protime-INR Collection Time: 01/18/17 4:25 AM Result Value Ref Range INR 1.1 POCT glucose Collection Time: 01/18/17 6:19 AM Result Value Ref Range GLUCOSE,POC SCREEN 127 (H) 65 - 99 mg/dL Septic Lactic Acid Collection Time: 01/18/17 9:22 AM Result Value Ref Range LACTIC ACID 1.0 0.4 - 2.0 mmol/L Procalcitonin Collection Time: 01/18/17 9:22 AM Result Value Ref Range PROCALCITONIN 0.11 <0.5 ng/mL Intake/Output Summary (Last 24 hours) at 01/18/17 1018 Last data filed at 01/18/17 1002 Gross per 24 hour Intake 1639.83 ml Output 2872 ml Net -1232.17 ml Physical Exam Constitutional: No distress, c-collar in place, NG tube in place Cardiovascular: Normal rate. Pulmonary: Effort normal. No stridor. No respiratory distress. Abdominal: Soft. Mildly distended abdomen, non-TTP throughout, hernia in RUQ. Neurological: Alert and oriented to person, place, and time. Psychiatric: He has a normal mood and affect His behavior is normal. Thought content farrukh l. Nursing note and vitals reviewed. Problem List Principal Problem: Closed nondisplaced fracture of seventh cervical vertebra (HCC) Active Problems: Maxillary fracture, left side, initial encounter for open fracture Antiphospholipid syndrome (HCC) Controlled type 2 diabetes mellitus with hyperglycemia (HCC) Syncope and collapse Thyroid mass CSF leak Non morbid obesity Signed: Karen Khoury PA-C Acute Care General Surgery Portions of this chart may have been created with voice recognition software. Occasional wr marie-word or "sound-alike" substitutions may have occurred, even after review, due to the inh erent limitations of voice recognition software. Please read the chart carefully and recogni ze, using context, where these substitutions have occurred. Personal communication is reques radha for any clarifications. hah, Vitaliy Townsend MD - 01/18/2017 10:07 AM PDTFormatting of this note might be different from the origi nal. Progress Notes by Morales Ramirez MD-R2 at 01/18/17 1007 Author: Morales Ramirez MD-R2 Service: Senior Staff Psychologist Author Type: Resident-Y2 Filed: 01/18/17 1015 Date of Service: 01/18/17 1007 Status: Attested Food Service Helper: Morales Ramirez MD-R2 (Resident-Y2) Cosigner: Matt Fong MD at 01/18/17 103 9 Attestation signed by Matt Fong MD at 01/18/17 1039 (Updated) Pt examined with morales and plan formulated together. Ileus is resolved clinically as he passed gas and had a bm yesterday with less abd distensi on and no output form ngt since this am. Will dc ngt, advance clears later if no worsening d istention. Will use 0.5 of dilaudid prn as opposed to 1. D/w dr morrison, will decrease lumbar drain to 10 cc/hr today, 5 the next day and clamp th e day after. Will not restart coumadin for at least a month, dr morrison discussed the issue with hemat ology. Prudencio vidalll 35 mn of cct excluding all procedures. [facility] Service: Senior Staff Psychologist Progress Note Jose Rafael Walker 66 y.o. Hospital Day: LOS: 11 days Post-Op Day: Day of Surgery Consulting Physicians Treatment Team: Consulting Physician: Mendez Morrison MD Consulting Physician: Jeovany Jennings MD Consulting Physician: Acute Care General Surgery Admitting Provider: Moni Dumont DO SUBJECTIVE Patient Summary: From Dr Dumont's H&P: The patient is a 66 y.o. male with significant past medical history of ankylosing spondylit is, diabetes type II, deep vein thrombosis, iron deficiency anemia, testicular hypofunction, obesity, hypertension, dyslipidemia, abdomen disorder, transient ischemic attack, non ambul atory ankylosing spondylitis, who presents to transfer from [facility] with a C7 fracture, left maxillary sinus fracture, thyroid mass and syncope. Main complaints at the o utlining facility were left sided face swelling, neck pain, confusion and difficulty remembe ring anything. Per history, patient woke up in a chair, went into the bathroom and found thi ngs in disarray. Granddaughter was then notified by neighbors that they heard a crashing berta nd earlier around 1:30. During the day patient had being a but was in the his usual state of health, came home and went to sleep on his recliner. He cannot remember anything th at happened, next thing that he was clear in his mind was his granddaughter asking questions . Patient denies any chest pain, shortness of breath, headache, dizziness, confusion, fever, chills or illness prior to his syncopal episode/ amnestic event. Reports chronic right shou lder pain. Reports neck pain with movement of his legs or any part of his body. He denies any dysphagi a. ED findings: C7 fracture, leukocytosis, hypokalemia, thyroid mass, left maxillary sinus fra cture [facility] ED treatment: Dilaudid, morphine, cyclobenzaprine From Dr Saravia's most recent progress note: 66-year-old gentleman with past medical history of ankylosing spondylitis, diabetes mellitu s type II on insulin, history of deep vein thrombosis, iron deficiency anemia, hypertension hyperlipidemia history of transient ischemic attack who had a fall in his bathroom and was t aken to the hospital with neck pain found to have C7 fracture, left maxillary sinus fracture , enlarged left thyroid lobe suggesting goiter a large nodule and patient does not recall th e circumstances of all though he admitted that he takes morphine which might have makes him loopy and had a fall because affect. Patient underwent C3-C4, 3-5, 5-6, 6-7, C7-T1, T1-T2 posterior pedicle L mass lesion by Dr. Rivera on 09 january and postoperatively patient was intubated for airways protection and transferred to ICU and was transferred back to the floor on 11 january. Patient had a syncope workup including echocardiogram which showed normal ejection fraction ,no significant valvular abnormalities and CT neck was negative for any stenosis, aneurysm or dissection ICU Timeline: 01/12: Admitted to ICU after placement of Lumbar drain by Neurosurgery due to CSF leak 01/13: Lumbar drain remains in place with hourly drainage of 15mls of CSF 01/14: Lumbar drain in place. Working with PT daily 01/16: Lumbar Drain was leaking from the incision site. Dr. Morrison to come later toda y and put in a suture to close the leak site. 01/18: Paitent's lumbar drain in place. No acute leaks noted. Patient's drain rate reduc ed to 10cc/hr. Events Overnight: No overnight NG output. Patient denies any chest pain or shortness of breath. Denies any abdominal distention or abdominal pain. New complains of ringing in th e right ear. SCHEDULED MEDICATIONS allopurinol 100 mg Oral Daily bisacodyl 10 mg Rectal Daily calcium carbonate-vitamin D 1 tablet Oral BID WC ciprofloxacin 400 mg Intravenous Q12H cyclobenzaprine 10 mg Oral TID famotidine 20 mg Oral Nightly heparin (porcine) 5000 unit/0.5mL 5,000 Units Subcutaneous 3 times per day insulin detemir 30 Units Subcutaneous BID insulin lispro (human) 0-10 Units Subcutaneous TID AC insulin lispro (human) 0-5 Units Subcutaneous Nightly insulin lispro (human) 6 Units Subcutaneous TID AC levothyroxine 50 mcg Intravenous Daily lidocaine buffered 1% 0.5 mL Intradermal Once lisinopril 10 mg Oral Daily morphine 60 mg Oral 2 times per day pantoprazole 40 mg Intravenous QAM AC sodium chloride 10 mL Intravenous 2 times per day sodium chloride 1 g Oral TID WC zinc sulfate 220 mg Oral Daily CONTINUOUS INFUSIONS dextrose dextrose dextrose 5 % and 0.45 % NaCl 50 mL/hr at 01/17/17 2206 OBJECTIVE VITAL SIGNS Temp: [97.4 F (36.3 C)-98.2 F (36.8 C)] 98.2 F (36.8 C) Heart Rate: [67-79] 72 Resp: [18] 18 BP: (96-123)/(51-61) 111/54 mmHg Intake/Output Summary (Last 24 hours) at 01/18/17 1015 Last data filed at 01/18/17 1002 Gross per 24 hour Intake 1639.83 ml Output 2872 ml Net -1232.17 ml EXAM GEN: 66 year old moderately obese male. Awake, alert, oriented x4. laying in bed with C-Col lar on. Appears uncomfortable. Talking with clear speech NEURO: PERRL, EOMI, no facial asymmetry, moves all extremities well with equal strength. Se nsation intact. GCS: 15 HEENT: sclerae clear, nonicteric, oral mmm, pink NECK: supple, trachea midline, C Collar in place CV: Heart tones regular. S1/S2, no murmur, rub or gallop, peripheral pulses palpable, cap r efill brisk LUNGS: Clear b/l, no wheezing, rales or rhonchi, symmetric chest expansion ABD: obese abdomen. Hypoactive bowel sounds, however not as distended as yesterday. No pain on palpation. EXTR: 1+ BLE edema, no clubbing or cyanosis SKIN: warm, dry, no rash or mottling; no e/o skin breakdown over the occiput, scapulae, elb ows, sacrum or heels. Surgical incisions dressed. Dressing were soaked due to lumbar drain leak. LINES/TUBES: PIV Right wrist, Midline left, NG/OG tube left nostril, Lumbar drain DATA Recent Labs Lab 01/18/1742401/17/1732701/16/17 0435 01/15/17 0413 WBC 10.34 13.35* 11.72* 18.91* RBC 3.81* 4.02* 3.94* 4.90 HGB 11.2* 11.8* 11.6* 14.5 HCT 32.1* 33.9* 33.5* 42.3 MCV 84.3 84.4 85.0 86.3 MCH 29.5 29.5 29.4 29.5 MCHC 34.9 34.9 34.6 34.2 RDW 44.6 45.1 44.2 43.8 PLT 264 275 262 314 MPV 7.6 8.2 7.9 7.7 BANDSABS 1.96* 2.40* -- 0.57* NEUTROABS -- -- 9.67* -- LYMPHSABS -- -- 0.89* -- MONOSABS -- -- 0.99* -- BASOSABS -- -- 0.02 -- EOSABS -- -- 0.16 -- MORPH RBC AND PLT MORPHOLOGY APPEAR NORMAL RBC AND PLT MORPHOLOGY APPEAR NORMAL -- RBC AN D PLT MORPHOLOGY APPEAR NORMAL Recent Labs Lab 01/18/1742401/17/1732701/16/17 1748 01/16/17 0435 NA 132* 131* -- -- 130* K 3.4* 3.7 3.8 < > 3.4* CL 95* 87* -- -- 91* CO2 28 31 -- -- 27 ANIONGAP 13 17 -- -- 15 GLUF 118* 118* -- -- 121* BUN 43* 47* -- -- 51* CREATININE 0.87 1.0 -- -- 1.1 BCR 49 47 -- -- 46 CA 8.1* 9.0 -- -- 9.2 EGFR >60 >60 -- -- >60 PHOS 1.5* 3.0 -- -- 3.2 MG 2.5* 2.1 -- -- 2.0 < > = values in this interval not displayed. Recent Labs Lab 01/18/17 0425 01/17/17 0328 01/16/17 0435 INR 1.1 1.1 1.1 IMAGING Xr Abdomen 1 View 01/17/2017 Cannot exclude small bowel obstruction on this suboptimal supine view. If there is clinical concern for obstruction, consider CT. RADIA Electronically signed by Williams armendariz MD on Jan 17 2017 3:17AM Referring Provider Line: [phone] ID: [id number] Xr Abdomen 1 View 01/16/2017 Grossly negative supine 1-view abdomen x-ray. RADIA Electronically signed by Rich Cooper MD on Jan 16 2017 3:10AM Referring Provider Line: [phone] ID: [id number] Ct Cervical Spine Without Contrast 01/16/2017 1. Stable spinal alignment, status post posterior spine fusion from C3-T2 compar ed to the cervical spine CT from 01/12/2017. 2. Ankylosing spondylitis. RADIA Electronicall y signed by Yenifer Marie MD on Jan 16 2017 5:20AM Referring Provider Line: [phone] [id number] ID: [id number] PROBLEM LIST Principal Problem: Closed nondisplaced fracture of seventh cervical vertebra (HCC) Active Problems: Maxillary fracture, left side, initial encounter for open fracture Antiphospholipid syndrome (HCC) Controlled type 2 diabetes mellitus with hyperglycemia (HCC) Syncope and collapse Thyroid mass CSF leak Non morbid obesity Resolved Problems: * No resolved hospital problems. * ASSESSMENT & PLAN NEURO: CSF Leak: Lumbar drain placed by Neurosurgery 01/12. Drain management at 10cc/hr. Keep HO B at 70 degrees. Ambulation encouraged. Monitor neuro status closely. Cervical Fracture S/P fusion C3 to T2. Remains in C collar. Post surgical management by NS. CAM ICU each shift CV: Hypertension: continue lisinopril. PULM: No acute issues. On room air. GI/NUTRITION: Suspected small bowel obstruction: Symptoms improving. Patient passing flatus and had a small bowel movement yesterday. NG tube output overnight was zero. Will remove the NG tube t catrachita and observe. RENAL/LYTES: Hyponatremia: improving. Fluid restriction 3 liters. Avoid nephrotoxins Monitor electrolytes and replace as per ICU protocol ID: Patient was started on prophylaxis with cipro IV 400mg Q12H. Will monitor WBC and vital signs HEME: Antiphospholipid Syndrome: Chronic anticoagulation to resume as per Neurosurgery and Hem atology. SQ heparin for now. ENDO: DM2 with fdc insulin use: Goal BG 80-180; continue treatment with SSI and Levemir 30 Units SC BID Hypothyroidism: Synthroid changed to IV synthroid at 25mcg. MUSC/SKIN: Routine skin care as per nursing protocol Turn/reposition in bed Q 2 hours PT/OT to continue treatment PROPHYLAXIS: Stress ulcer prophylaxis: PPI DVT prophylaxis: SCD's; heparin SQ. Resume chronic anticoagulation as per Neurosurgery VAP bundle: N/A Disposition: ICU plan of care as above. Code Status: Full Code Morales Ramirez MD-R2 01/18/2017 Mendez Camara MD - 01/17/2017 4:33 PM PDTFormatting of this note might be different fr om the original. Progress Notes by Mendez Morrison MD at 01/17/17 007 Author: Mendez Morrison MD Service: Neurosurgery Author Type: Physician Filed: 01/18/172057 Date of Service: 01/17/171632 Status: Signed Food Service Helper: Mendez Morrison MD (Physician) [facility] Service: Neurosurgery Progress Note Hospital Day: LOS: 10 days Post-Op Day: 5 Days Post-Op Surgery/Procedure: Procedure(s) (LRB): LUMBAR - DRAINAGE (N/A) SUBJECTIVE Patient Summary: Has SBO Events Overnight: Has NG tube and is NPO Scheduled Medications allopurinol 100 mg Oral Daily bisacodyl 10 mg Rectal Daily calcium carbonate-vitamin D 1 tablet Oral BID WC cyclobenzaprine 10 mg Oral TID famotidine 20 mg Oral Nightly heparin (porcine) 5000 unit/0.5mL 5,000 Units Subcutaneous 3 times per day insulin detemir 30 Units Subcutaneous BID insulin lispro (human) 0-10 Units Subcutaneous TID AC insulin lispro (human) 0-5 Units Subcutaneous Nightly insulin lispro (human) 6 Units Subcutaneous TID AC levothyroxine 50 mcg Oral QAM AC lidocaine buffered 1% 0.5 mL Intradermal Once lisinopril 10 mg Oral Daily morphine 60 mg Oral 2 times per day pantoprazole 40 mg Oral QAM AC sodium chloride 10 mL Intravenous 2 times per day sodium chloride 1 g Oral TID WC zinc sulfate 220 mg Oral Daily Continuous Infusions dextrose dextrose PRN Medications acetaminophen OR acetaminophen, hpxlniyfck-qjfgclhanjdpu-shjgodtc, carboxymethylcellulo se, dextrose, dextrose, dextrose, dextrose, docusate sodium OR docusate, glucagon, gluca alaina, HYDROmorphone OR HYDROmorphone, lactulose, magnesium sulfate OR magnesium sulfa te OR magnesium sulfate, morphine, nystatin, nystatin, ondansetron OR ondansetron, p etrolatum, phosphorus OR sodium phosphate IVPB 20 mmol OR sodium phosphate IVPB 45 m mol, polyethylene glycol, potassium OR potassium OR potassium OR potassium chlor luis OR potassium chloride OR potassium chloride, simethicone, sodium chloride OBJECTIVE Vital Signs: BP 103/51 mmHg | Pulse 75 | Temp(Src) 98.1 F (36.7 C) (Oral) | Resp 16 | Ht 1.778 m (5' 10") | Wt 119.4 kg (263 lb 3.7 oz) | BMI 37.77 kg/m2 | SpO2 97% Ox3 craft demonstrator intact 5/5 x4 Sensation intact No radicular pain Wound CDI DATA Recent Labs Lab 01/17/17 0328 01/16/17 0435 01/15/17 0413 WBC 13.35* 11.72* 18.91* RBC 4.02* 3.94* 4.90 HGB 11.8* 11.6* 14.5 HCT 33.9* 33.5* 42.3 MCV 84.4 85.0 86.3 MCH 29.5 29.4 29.5 MCHC 34.9 34.6 34.2 RDW 45.1 44.2 43.8 PLT 275 262 314 MPV 8.2 7.9 7.7 DIFFTYPE MANUAL AUTOMATED MANUAL Results Procedure Component Value Units Date/Time POCT glucose [[id number]] (Abnormal) Collected: 01/17/17 1626 GLUCOSE,POC SCREEN 140 (H) mg/dL Updated: 01/17/17 1633 POCT glucose [[id number]] (Abnormal) Collected: 01/17/17 1132 GLUCOSE,POC SCREEN 171 (H) mg/dL Updated: 01/17/17 1150 POCT glucose [[id number]] (Abnormal) Collected: 01/17/17 0824 GLUCOSE,POC SCREEN 145 (H) mg/dL Updated: 01/17/17 0838 POCT glucose [[id number]] Collected: 01/16/17 2136 GLUCOSE,POC SCREEN 94 mg/dL Updated: 01/17/17 0608 CBC w/auto diff (reflex to manual) [[id number]] (Abnormal) Collected: 01/17/17 0328 Specimen Information: Blood Updated: 01/17/17 0505 WBC 13.35 (H) K/uL RBC 4.02 (L) M/uL HGB 11.8 (L) g/dL HCT 33.9 (L) % MCV 84.4 fl MCH 29.5 pg MCHC 34.9 g/dL RDW SD 45.1 fl PLT 275 K/uL MPV 8.2 fl DIFF TYPE MANUAL Neutrophils Manual 64 % Bands 18 % METAMYELOCYTES 1 % Lymphocytes Manual 9 % REACTIVE LYMPHS 1 % Monocytes Manual 7 % Neutrophils Absolute 8.56 (H) K/uL Bands Manual 2.40 (H) K/uL Metamyelocytes Absolute 0.13 (H) K/uL Lymphocytes Absolute 1.20 K/uL REACTIVE LYMPHS ABS 0.13 K/uL Monocytes Absolute 0.93 (H) K/uL MORPHOLOGY RBC AND PLT MORPHOLOGY APPEAR NORMAL Basic metabolic panel [[id number]] (Abnormal) Collected: 01/17/17327 Specimen Information: Blood Updated: 01/17/17 045 SODIUM 131 (L) mmol/L POTASSIUM 3.7 mmol/L CHLORIDE 87 (L) mmol/L CO2 31 mmol/L ANION GAP AGAP 17 mmol/L GLUCOSE 118 (H) mg/dL BUN 47 (H) mg/dL CREATININE 1.0 mg/dL BUN/CREAT 47 CALCIUM 9.0 mg/dL EGFR >60 mL/min/1.73m2 Magnesium [[id number]] Collected: 01/17/17327 Specimen Information: Blood Updated: 01/17/17 045 MAGNESIUM 2.1 mg/dL Phosphorus [[id number]] Collected: 01/17/17327 Specimen Information: Blood Updated: 01/17/17 045 PHOSPHORUS 3.0 mg/dL Lactic acid, plasma [[id number]] Collected: 01/17/17328 Specimen Information: Blood Updated: 01/17/17 0401 LACTIC ACID 1.6 mmol/L Protime-INR [[id number]] Collected: 01/17/17327 Specimen Information: Blood Updated: 01/17/17 0356 INR 1.1 Potassium [[id number]] Collected: 01/16/17 1748 Specimen Information: Blood Updated: 01/16/17 1817 POTASSIUM 3.8 mmol/L POCT glucose [[id number]] Collected: 01/16/17 1639 GLUCOSE,POC SCREEN 88 mg/dL Updated: 01/16/17 1801 POCT glucose [[id number]] (Abnormal) Collected: 01/16/17 1133 GLUCOSE,POC SCREEN 106 (H) mg/dL Updated: 01/16/17 1140 Potassium [[id number]] (Abnormal) Collected: 01/16/17 0845 Specimen Information: Blood Updated: 01/16/17 0919 POTASSIUM 3.2 (L) mmol/L POCT glucose [[id number]] (Abnormal) Collected: 01/16/17 0535 GLUCOSE,POC SCREEN 125 (H) mg/dL Updated: 01/16/17 0614 Phosphorus [[id number]] Collected: 01/16/17 0435 Specimen Information: Blood Updated: 01/16/17 0531 PHOSPHORUS 3.2 mg/dL Basic metabolic panel [[id number]] (Abnormal) Collected: 01/16/17434 Specimen Information: Blood Updated: 01/16/17 0531 SODIUM 130 (L) mmol/L POTASSIUM 3.4 (L) mmol/L CHLORIDE 91 (L) mmol/L CO2 27 mmol/L ANION GAP AGAP 15 mmol/L GLUCOSE 121 (H) mg/dL BUN 51 (H) mg/dL CREATININE 1.1 mg/dL BUN/CREAT 46 CALCIUM 9.2 mg/dL EGFR >60 mL/min/1.73m2 Magnesium [[id number]] Collected: 01/16/17434 Specimen Information: Blood Updated: 01/16/17 0531 MAGNESIUM 2.0 mg/dL CBC w/auto diff (reflex to manual) [[id number]] (Abnormal) Collected: 01/16/17434 Specimen Information: Blood Updated: 01/16/17 0524 WBC 11.72 (H) K/uL RBC 3.94 (L) M/uL HGB 11.6 (L) g/dL HCT 33.5 (L) % MCV 85.0 fl MCH 29.4 pg MCHC 34.6 g/dL RDW SD 44.2 fl PLT 262 K/uL MPV 7.9 fl DIFF TYPE AUTOMATED NEUTROPHILS 82.46 % LYMPHOCYTES 7.61 % MONOCYTES 8.41 % EOSINOPHILS 1.34 % BASOPHILS 0.18 % NEUTROPHILS ABS 9.67 (H) K/uL LYMPHOCYTES ABS 0.89 (L) K/uL MONOCYTES ABS 0.99 (H) K/uL EOSINOPHILS ABS 0.16 K/uL BASOPHILS ABS 0.02 K/uL Protime-INR [[id number]] Collected: 01/16/17434 Specimen Information: Blood Updated: 01/16/17 0507 INR 1.1 POCT glucose [[id number]] (Abnormal) Collected: 01/15/17 2048 GLUCOSE,POC SCREEN 131 (H) mg/dL Updated: 01/16/17 0450 POCT glucose [[id number]] (Abnormal) Collected: 01/15/17 1654 GLUCOSE,POC SCREEN 188 (H) mg/dL Updated: 01/15/17 1705 Sodium [[id number]] (Abnormal) Collected: 01/15/17 1355 Specimen Information: Blood Updated: 01/15/17 1430 SODIUM 126 (L) mmol/L POCT glucose [[id number]] (Abnormal) Collected: 01/15/17 1205 GLUCOSE,POC SCREEN 233 (H) mg/dL Updated: 01/15/17 1213 POCT glucose [[id number]] (Abnormal) Collected: 01/15/17 0606 GLUCOSE,POC SCREEN 228 (H) mg/dL Updated: 01/15/1714 POCT glucose [[id number]] (Abnormal) Collected: 01/14/17 2159 GLUCOSE,POC SCREEN 162 (H) mg/dL Updated: 01/15/17613 Basic metabolic panel [[id number]] (Abnormal) Collected: 01/15/17412 Specimen Information: Blood Updated: 01/15/17 0557 SODIUM 128 (L) mmol/L POTASSIUM 4.1 mmol/L CHLORIDE 86 (L) mmol/L CO2 32 mmol/L ANION GAP AGAP 14 mmol/L GLUCOSE 209 (H) mg/dL BUN 31 (H) mg/dL CREATININE 1.2 mg/dL BUN/CREAT 26 CALCIUM 10.5 mg/dL EGFR >60 mL/min/1.73m2 Magnesium [[id number]] Collected: 01/15/17412 Specimen Information: Blood Updated: 01/15/17 0557 MAGNESIUM 2.1 mg/dL Phosphorus [[id number]] (Abnormal) Collected: 01/15/17412 Specimen Information: Blood Updated: 01/15/17 0557 PHOSPHORUS 5.5 (H) mg/dL CBC w/auto diff (reflex to manual) [[id number]] (Abnormal) Collected: 01/15/17412 Specimen Information: Blood Updated: 01/15/17 0535 WBC 18.91 (H) K/uL RBC 4.90 M/uL HGB 14.5 g/dL HCT 42.3 % MCV 86.3 fl MCH 29.5 pg MCHC 34.2 g/dL RDW SD 43.8 fl PLT 314 K/uL MPV 7.7 fl DIFF TYPE MANUAL Neutrophils Manual 82 % Bands 3 % METAMYELOCYTES 1 % Lymphocytes Manual 10 % Monocytes Manual 4 % Neutrophils Absolute 15.50 (H) K/uL Bands Manual 0.57 (H) K/uL Metamyelocytes Absolute 0.19 (H) K/uL Lymphocytes Absolute 1.89 K/uL Monocytes Absolute 0.76 K/uL MORPHOLOGY RBC AND PLT MORPHOLOGY APPEAR NORMAL Protime-INR [[id number]] Collected: 01/15/17 0413 Specimen Information: Blood Updated: 01/15/17 0444 INR 1.1 POCT glucose [[id number]] (Abnormal) Collected: 01/14/17 1650 GLUCOSE,POC SCREEN 194 (H) mg/dL Updated: 01/14/17 1705 Recent Labs Lab 01/17/17 0328 01/16/17 0435 01/15/17 04[address] Ab[address]en Pelvis Without Contrast 01/17/2017 1. Mid to distal small bowel obstruction, of unclear etiology. 2. Nasogastric tube tip in the stomach. 3. Mild distention of the urinary bladder. 4. Previous cholecyste ctomy. 5. Fatty liver. 6. Mild atelectasis in the left lung base. X-ray Abdomen Ap 01/17/2017 1. Nasogastric tube tip in the stomach. Xr Abdomen 1 View 01/17/2017 Cannot exclude small bowel obstruction on this suboptimal supine view. If there is clinical concern for obstruction, consider CT. RADIA Electronically signed by Williams armendariz MD on Jan 17 2017 3:17AM Referring Provider Line: [phone] ID: [id number] Xr Abdomen 1 View 01/16/2017 Grossly negative supine 1-view abdomen x-ray. RADIA Electronically signed by Rich Cooper MD on Jan 16 2017 3:10AM Referring Provider Line: [phone] ID: [id number] Ct Head Without Contrast 01/14/2017 1. No acute intracranial findings. 2. Decreased postoperative pneumocephalus c ompared with 01/09/2017. 3. No definite evidence of over-shunting. Ct Cervical Spine Without Contrast 01/16/2017 1. Stable spinal alignment, status post posterior spine fusion from C3-T2 compar ed to the cervical spine CT from 01/12/2017. 2. Ankylosing spondylitis. RADIA Electronicall y signed by Yenifer Marie MD on Jan 16 2017 5:20AM Referring Provider Line: [phone] [id number] ID: [id number] Ct Cervical Spine Without Contrast 01/12/2017 1. Previously seen surgical drain has been removed. 2. Right-sided pedicle scr ew at C7 traverses the superior margin of the C7-T1 neural foramen and could affect the exit ing right C8 nerve root. Right-sided pedicle screw at T1 traverses the T1-2 neural foramen centrally and may be compressing the exiting right T1 nerve root. These findings are unchan ged from the previous exam. 3. All other transpedicular screws are in satisfactory position . 4. Enlarged left thyroid lobe suggesting goiter or large nodule. 5. Atrophy of the right submandibular gland with a 6 mm sialolith seen within the gland. LEM LIST Principal Problem: Closed nondisplaced fracture of seventh cervical vertebra (HCC) Active Problems: Maxillary fracture, left side, initial encounter for open fracture Antiphospholipid syndrome (HCC) Controlled type 2 diabetes mellitus with hyperglycemia (HCC) Syncope and collapse Thyroid mass CSF leak Non morbid obesity ASSESSMENT & PLAN POD 8 C3-T 2 fusion POD 5 Lumbar drain palcement Wound dry CSF draining at 15cc per hour HOB at 70 Disposition: Unknown Code Status: Full Code Mendez Morrison MD 01/17/2017 4:33 PM onversio n Transaction, Provider Unknown - 01/17/2017 11:05 AM PDTFormatting of this note might be di fferent from the original. Therapy Progress Note by Paul Gonzales PT at 01/17/17 1105 Author: Paul Gonzales PT Service: (none) Author Type: Physical Therapist Filed: 01/17/17 1122 Date of Service: 01/17/17 1105 Status: Signed Food Service Helper: Paul Gonzales PT (Physical Therapist) 01/17/17 1105 PT Last Visit PT Received On 01/17/17 Reason for Treatment Spinal surgery Requires PT Follow Up Yes Follow up PT Only? No Assistance Required 1 person Precautions Spinal Precautions Cervical;Cervical collar on when upright Other Precautions HOB elevated to 60-70 deg at all times, Lumbar drain, Fall risk Other Comments Comments Talked with RN pt. has been having abdominal issues and would like PT to hold with any physical movement. pt. supine in bed and is tired but willing to talk. Reviewed spina l precautions, log rolling and importantance of movement every 20-30 minutes. pt. able to re call all of this but did apprecaite the therapist going over it again. Also talked with pt. about doing ankle pumps throughout the day to help circulation. pt. in bed with RN in room . Cognition Overall Cognitive Status WFL Orientation Level Oriented Modalities Other Therapy reviewed sternal precautions Activity Tolerance Activity Tolerance Patient limited by pain Nurse Made Aware yes Plan Treatment/Interventions Continue per Primary PT POC Progress Slow progress, decreased activity tolerance Recommendation Recommendations Home Assist Barriers to Discharge Physical Deficits Impacting Functional Harding;Self-care Deficit s Impacting Functional Harding;Pain Recommendation Comments Home assist vs. SNF pt. biggest barrier at this point is abdominal pain. RN reports pt. still moving well if pt. makes progress and has 24/7 assist at home co uld go home onver jacki Khanaction, Provider Unknown - 01/17/2017 6:23 AM PDT Nurse Progress Note by Rebecca Sosa RN at 01/17/17622 Author: Rebecca Sosa RN Service: (none) Author Type: Registered Nurse Filed: 01/17/17625 Date of Service: 01/17/17622 Status: Signed Food Service Helper: Rebecca Sosa RN (Registered Nurse) Pt resting in bed. NG tube is in place to LIS. C collar remains in place. Lumbar drain lila ins clamped except for draining 15cc every hour. Pt states that his stomach feels much dorothy r but he is very bothered by the NG tube. He is also complaining of neck pain, but was unabl e to take his MS contin last night. Midline remains in place. No other acute events overnigh t. Will continue to closely monitor. Rebecca Toledo RN oManasa del rio ARNP - 01/17/2017 3:22 AM PDTFormatting of this note might be different from th e original. Progress Notes by BRI Hernandez at 01/17/17321 Author: BRI Hernandez Service: Senior Staff Psychologist Author Type: Advanced Registered Nicky se Practitioner Filed: 01/17/17 0640 Date of Service: 01/17/17321 Status: Signed Food Service Helper: BRI Hernandez (Advanced Registered Nurse Practitioner) [facility] Service: Senior Staff Psychologist Progress Note Jose Rafael Walker 66 y.o. Hospital Day: LOS: 10 days Post-Op Day: Day of Surgery Consulting Physicians Treatment Team: Consulting Physician: Mendez Morrison MD Consulting Physician: Jeovany Jennings MD Admitting Provider: Moni Dumont DO SUBJECTIVE Patient Summary: From Dr Dumont's H&P: The patient is a 66 y.o. male with significant past medical history of ankylosing spondylit is, diabetes type II, deep vein thrombosis, iron deficiency anemia, testicular hypofunction, obesity, hypertension, dyslipidemia, abdomen disorder, transient ischemic attack, non ambul atory ankylosing spondylitis, who presents to transfer from [facility] with a C7 fracture, left maxillary sinus fracture, thyroid mass and syncope. [facility] were left sided face swelling, neck pain, confusion and difficulty remembe ring anything. Per history, patient woke up in a chair, went into the bathroom and found thi ngs in disarray. Granddaughter was then notified by neighbors that they heard a crashing berta nd earlier around 1:30. During the day patient had being a but was in the his usual state of health, came home and went to sleep on his recliner. He cannot remember anything th at happened, next thing that he was clear in his mind was his granddaughter asking questions . Patient denies any chest pain, shortness of breath, headache, dizziness, confusion, fever, chills or illness prior to his syncopal episode/ amnestic event. Reports chronic right shou lder pain. Reports neck pain with movement of his legs or any part of his body. He denies any dysphagi a. ED findings: C7 fracture, leukocytosis, hypokalemia, thyroid mass, left maxillary sinus fra cture [facility] ED treatment: Dilaudid, morphine, cyclobenzaprine From Dr Saravia's most recent progress note: 66-year-old gentleman with past medical history of ankylosing spondylitis, diabetes mellitu s type II on insulin, history of deep vein thrombosis, iron deficiency anemia, hypertension hyperlipidemia history of transient ischemic attack who had a fall in his bathroom and was t aken to the hospital with neck pain found to have C7 fracture, left maxillary sinus fracture , enlarged left thyroid lobe suggesting goiter a large nodule and patient does not recall th e circumstances of all though he admitted that he takes morphine which might have makes him loopy and had a fall because affect. Patient underwent C3-C4, 3-5, 5-6, 6-7, C7-T1, T1-T2 posterior pedicle L mass lesion by Dr. Rivera on 09 january and postoperatively patient was intubated for airways protection and transferred to ICU and was transferred back to the floor on 11 january. Patient had a syncope workup including echocardiogram which showed normal ejection fraction ,no significant valvular abnormalities and CT neck was negative for any stenosis, aneurysm or dissection ICU Timeline: 01/12: Admitted to ICU after placement of Lumbar drain by Neurosurgery due to CSF leak 01/13: Lumbar drain remains in place with hourly drainage of 15mls of CSF 01/14: Lumbar drain in place. Working with PT daily 01/16: Lumbar Drain was leaking from the incision site. Dr. Morrison to come later toda y and put in a suture to close the leak site. Events Overnight: Increased abdominal distention and discomfort. NG tube placed with 1500 ml output. SCHEDULED MEDICATIONS allopurinol 100 mg Oral Daily bisacodyl 10 mg Rectal Daily calcium carbonate-vitamin D 1 tablet Oral BID WC cyclobenzaprine 10 mg Oral TID famotidine 20 mg Oral Nightly heparin (porcine) 5000 unit/0.5mL 5,000 Units Subcutaneous 3 times per day insulin detemir 30 Units Subcutaneous BID insulin lispro (human) 0-10 Units Subcutaneous TID AC insulin lispro (human) 0-5 Units Subcutaneous Nightly insulin lispro (human) 6 Units Subcutaneous TID AC levothyroxine 50 mcg Oral QAM AC lidocaine buffered 1% 0.5 mL Intradermal Once lisinopril 10 mg Oral Daily methylnaltrexone 12 mg Subcutaneous Daily midazolam morphine 60 mg Oral 2 times per day pantoprazole 40 mg Oral QAM AC sodium chloride 10 mL Intravenous 2 times per day sodium chloride 1 g Oral TID WC zinc sulfate 220 mg Oral Daily CONTINUOUS INFUSIONS dextrose dextrose OBJECTIVE VITAL SIGNS Temp: [97.4 F (36.3 C)-98 F (36.7 C)] 98 F (36.7 C) Heart Rate: [72-87] 81 Resp: [18-20] 18 BP: (90-117)/(46-55) 96/50 mmHg Intake/Output Summary (Last 24 hours) at 01/17/17 0322 Last data filed at 01/17/17 0130 Gross per 24 hour Intake 4058.91 ml Output 2311 ml Net 1747.91 ml EXAM GEN: 66 year old obese male. Awake, alert, oriented x4. Sitting up in bed with C-Collar on. Appears uncomfortable. Patient is conversant with clear speech. NEURO: PERRL, EOMI, no facial asymmetry, moves all extremities well with equal strength. Se nsation intact. GCS: 15 HEENT: sclerae clear, nonicteric, oral mmm, pink NECK: supple, trachea midline, C Collar in place CV: Heart tones regular. S1/S2, no murmur, rub or gallop, peripheral pulses palpable, cap r efill brisk LUNGS: Clear b/l, no wheezing, rales or rhonchi, symmetric chest expansion ABD: Distended obese abdomen. Bowel sounds present. EXTR: 1+ BLE edema, no clubbing or cyanosis SKIN: warm, dry, no rash or mottling; no e/o skin breakdown over the occiput, scapulae, elb ows, sacrum or heels. Surgical incisions dressed. Dressing were soaked due to lumbar drain leak. LINES/TUBES: PIV X 2, Lumbar drain DATA Recent Labs Lab 01/16/17 0435 01/15/17 0413 01/14/17 0358 01/13/17 0414 01/11/17 0407 WBC 11.72* 18.91* 15.45* 16.48* < > 25.36* RBC 3.94* 4.90 4.53 4.46 < > 3.94* HGB 11.6* 14.5 13.3 13.0* < > 11.3* HCT 33.5* 42.3 38.9* 38.5* < > 33.5* MCV 85.0 86.3 85.7 86.3 < > 85.2 MCH 29.4 29.5 29.3 29.2 < > 28.7 MCHC 34.6 34.2 34.2 33.8 < > 33.7 RDW 44.2 43.8 43.3 44.6 < > 43.3 PLT 262 314 287 288 < > 222 MPV 7.9 7.7 8.0 8.3 < > 8.1 BANDSABS -- 0.57* 0.62* -- -- 1.78* NEUTROABS 9.67* -- -- -- -- -- LYMPHSABS 0.89* -- -- -- -- -- MONOSABS 0.99* -- -- -- -- -- BASOSABS 0.02 -- -- -- -- -- EOSABS 0.16 -- -- -- -- -- MORPH -- RBC AND PLT MORPHOLOGY APPEAR NORMAL RBC AND PLT MORPHOLOGY APPEAR NORMAL RBC AN D PLT MORPHOLOGY APPEAR NORMAL < > RBC AND PLT MORPHOLOGY APPEAR NORMAL < > = values in this interval not displayed. Recent Labs Lab 01/16/17 1748 01/16/17 0845 01/16/1743401/15/17 1355 01/15/173 01/14/17 0358 NA -- -- 130* 126* 128* 130* K 3.8 3.2* 3.4* -- 4.1 3.8 CL -- -- 91* -- 86* 91* CO2 -- -- 27 -- 32 30 ANIONGAP -- -- 15 -- 14 13 GLUF -- -- 121* -- 209* 152* BUN -- -- 51* -- 31* 18 CREATININE -- -- 1.1 -- 1.2 0.9 BCR -- -- 46 -- 26 20 CA -- -- 9.2 -- 10.5 8.8 EGFR -- -- >60 -- >60 >60 PHOS -- -- 3.2 -- 5.5* 3.6 MG -- -- 2.0 -- 2.1 1.9 Recent Labs Lab 01/16/1743401/15/17 0413 01/14/17 0358 INR 1.1 1.1 1.1 IMAGING Xr Abdomen 1 View 01/17/2017 Cannot exclude small bowel obstruction on this suboptimal supine view. If there is clinical concern for obstruction, consider CT. [facility] Electronically signed by Williams armendariz MD on Jan 17 2017 3:17AM Referring Provider Line: [phone] ID: [id number] Xr Abdomen 1 View 01/16/2017 Grossly negative supine 1-view abdomen x-ray. [facility] Electronically signed by Rich Cooper MD on Jan 16 2017 3:10AM Referring Provider Line: [phone] ID: [id number] Ct Cervical Spine Without Contrast 01/16/2017 1. Stable spinal alignment, status post posterior spine fusion from C3-T2 compar ed to the cervical spine CT from 01/12/2017. 2. Ankylosing spondylitis. RADIA Electronicall y signed by Yenifer Marie MD on Jan 16 2017 5:20AM Referring Provider Line: [phone] ID: [id number] PROBLEM LIST Principal Problem: Closed nondisplaced fracture of seventh cervical vertebra (HCC) Active Problems: Maxillary fracture, left side, initial encounter for open fracture Antiphospholipid syndrome (HCC) Controlled type 2 diabetes mellitus with hyperglycemia (HCC) Syncope and collapse Thyroid mass CSF leak Non morbid obesity Resolved Problems: * No resolved hospital problems. * ASSESSMENT & PLAN NEURO: CSF Leak: Lumbar drain placed by Neurosurgery 01/12. Drain management per Neurosurgery. K eep HOB at 70 degrees. Ambulation as per NS. Monitor neuro status closely. Cervical Fracture S/P fusion C3 to T2. Remains in C collar. Post surgical management by NS. CAM ICU each shift CV: Hypertension: continue lisinopril. PULM: No acute issues. On room air. GI/NUTRITION: Suspected small bowel obstruction: NG placed with 1500 ml output. NPO. RENAL/LYTES: Hyponatremia: improving. Fluid restriction 3 liters. Avoid nephrotoxins Monitor electrolytes and replace as per ICU protocol ID: WBC trending up slightly. Afebrile. Monitor closely. No antibiotics at this time HEME: Antiphospholipid Syndrome: Chronic anticoagulation to resume as per Neurosurgery and Hem atology. SQ heparin for now ENDO: DM2 with fdc insulin use: Goal BG 80-180; continue treatment with SSI and Levemir 30 Units SC BID Hypothyroidism: Continue synthroid 50 mcg MUSC/SKIN: Routine skin care as per nursing protocol Turn/reposition in bed Q 2 hours PT/OT to continue treatment PROPHYLAXIS: Stress ulcer prophylaxis: PPI DVT prophylaxis: SCD's; heparin SQ. Resume chronic anticoagulation as per Neurosurgery VAP bundle: N/A Disposition: ICU plan of care as above. Code Status: Full Code *Please bill 45 minutes of critical care time spent evaluating the patient, reviewing the d seng and formulating a plan exclusive of all other procedures. BRI Hernandez 01/17/2017 Hoa, Arnulfo Nicole MD - 01/16/2017 2:58 PM PDTFormatting of this note might be different from the o riginal. Progress Notes by Mendez Morrison MD at 01/16/17 6785 Author: Mendez Morrison MD Service: Neurosurgery Author Type: Physician Filed: 01/18/172055 Date of Service: 01/16/171457 Status: Signed Food Service Helper: Mendez Morrison MD (Physician) [facility] Service: Neurosurgery Progress Note Hospital Day: LOS: 9 days Post-Op Day: 4 Days Post-Op Surgery/Procedure: Procedure(s) (LRB): LUMBAR - DRAINAGE (N/A) SUBJECTIVE Patient Summary: Minimal soakage of dressing that stopped Events Overnight: No acute events Scheduled Medications allopurinol 100 mg Oral Daily bisacodyl 10 mg Rectal Daily calcium carbonate-vitamin D 1 tablet Oral BID WC cyclobenzaprine 10 mg Oral TID heparin (porcine) 5000 unit/0.5mL 5,000 Units Subcutaneous 3 times per day insulin detemir 30 Units Subcutaneous BID insulin lispro (human) 0-10 Units Subcutaneous TID AC insulin lispro (human) 0-5 Units Subcutaneous Nightly insulin lispro (human) 6 Units Subcutaneous TID AC levothyroxine 50 mcg Oral QAM AC lidocaine buffered 1% 0.5 mL Intradermal Once lisinopril 10 mg Oral Daily methylnaltrexone 12 mg Subcutaneous Daily morphine 60 mg Oral 2 times per day pantoprazole 40 mg Oral QAM AC sodium chloride 10 mL Intravenous 2 times per day sodium chloride 1 g Oral TID WC zinc sulfate 220 mg Oral Daily Continuous Infusions dextrose dextrose PRN Medications acetaminophen OR acetaminophen, tdnmghncue-erruycxiowieo-clbftivl, carboxymethylcellulo se, dextrose, dextrose, dextrose, dextrose, docusate sodium OR docusate, fentaNYL OR fentaNYL, glucagon, glucagon, lactulose, magnesium sulfate OR magnesium sulfate OR magnesium sulfate, morphine, nystatin, nystatin, ondansetron OR ondansetron, petrolatum, phosphorus OR sodium phosphate IVPB 20 mmol OR sodium phosphate IVPB 45 mmol, polye thylene glycol, potassium OR potassium OR potassium OR potassium chloride OR potassium chloride OR potassium chloride, simethicone, sodium chloride OBJECTIVE Vital Signs: BP 107/54 mmHg | Pulse 80 | Temp(Src) 97.9 F (36.6 C) (Oral) | Resp 20 | Ht 1.778 m (5' 10") | Wt 119.4 kg (263 lb 3.7 oz) | BMI 37.77 kg/m2 | SpO2 93% Ox3 craft demonstrator intact 5/5 x4 Sensation intact No radicular pain Wound CDI DATA Recent Labs Lab 01/16/17 0435 01/15/17 0413 01/14/17 0358 WBC 11.72* 18.91* 15.45* RBC 3.94* 4.90 4.53 HGB 11.6* 14.5 13.3 HCT 33.5* 42.3 38.9* MCV 85.0 86.3 85.7 MCH 29.4 29.5 29.3 MCHC 34.6 34.2 34.2 RDW 44.2 43.8 43.3 PLT 262 314 287 MPV 7.9 7.7 8.0 DIFFTYPE AUTOMATED MANUAL MANUAL Results Procedure Component Value Units Date/Time POCT glucose [[id number]] (Abnormal) Collected: 01/16/17 1133 GLUCOSE,POC SCREEN 106 (H) mg/dL Updated: 01/16/17 1140 Potassium [[id number]] (Abnormal) Collected: 01/16/17 0845 Specimen Information: Blood Updated: 01/16/17 0919 POTASSIUM 3.2 (L) mmol/L POCT glucose [[id number]] (Abnormal) Collected: 01/16/17 0535 GLUCOSE,POC SCREEN 125 (H) mg/dL Updated: 01/16/17 0614 Phosphorus [[id number]] Collected: 01/16/17434 Specimen Information: Blood Updated: 01/16/17 0531 PHOSPHORUS 3.2 mg/dL Basic metabolic panel [[id number]] (Abnormal) Collected: 01/16/17434 Specimen Information: Blood Updated: 01/16/1731 SODIUM 130 (L) mmol/L POTASSIUM 3.4 (L) mmol/L CHLORIDE 91 (L) mmol/L CO2 27 mmol/L ANION GAP AGAP 15 mmol/L GLUCOSE 121 (H) mg/dL BUN 51 (H) mg/dL CREATININE 1.1 mg/dL BUN/CREAT 46 CALCIUM 9.2 mg/dL EGFR >60 mL/min/1.73m2 Magnesium [[id number]] Collected: 01/16/17434 Specimen Information: Blood Updated: 01/16/17 0531 MAGNESIUM 2.0 mg/dL CBC w/auto diff (reflex to manual) [[id number]] (Abnormal) Collected: 01/16/17434 Specimen Information: Blood Updated: 01/16/17523 WBC 11.72 (H) K/uL RBC 3.94 (L) M/uL HGB 11.6 (L) g/dL HCT 33.5 (L) % MCV 85.0 fl MCH 29.4 pg MCHC 34.6 g/dL RDW SD 44.2 fl PLT 262 K/uL MPV 7.9 fl DIFF TYPE AUTOMATED NEUTROPHILS 82.46 % LYMPHOCYTES 7.61 % MONOCYTES 8.41 % EOSINOPHILS 1.34 % BASOPHILS 0.18 % NEUTROPHILS ABS 9.67 (H) K/uL LYMPHOCYTES ABS 0.89 (L) K/uL MONOCYTES ABS 0.99 (H) K/uL EOSINOPHILS ABS 0.16 K/uL BASOPHILS ABS 0.02 K/uL Protime-INR [[id number]] Collected: 01/16/17434 Specimen Information: Blood Updated: 01/16/17 0507 INR 1.1 POCT glucose [[id number]] (Abnormal) Collected: 01/15/17 2048 GLUCOSE,POC SCREEN 131 (H) mg/dL Updated: 01/16/17 045 POCT glucose [[id number]] (Abnormal) Collected: 01/15/17 1654 GLUCOSE,POC SCREEN 188 (H) mg/dL Updated: 01/15/17 1705 Sodium [[id number]] (Abnormal) Collected: 01/15/17 1355 Specimen Information: Blood Updated: 01/15/17 1430 SODIUM 126 (L) mmol/L POCT glucose [[id number]] (Abnormal) Collected: 01/15/17 1205 GLUCOSE,POC SCREEN 233 (H) mg/dL Updated: 01/15/17 1213 POCT glucose [[id number]] (Abnormal) Collected: 01/15/17 0606 GLUCOSE,POC SCREEN 228 (H) mg/dL Updated: 01/15/17 0614 POCT glucose [[id number]] (Abnormal) Collected: 01/14/17 2159 GLUCOSE,POC SCREEN 162 (H) mg/dL Updated: 01/15/1714 Basic metabolic panel [[id number]] (Abnormal) Collected: 01/15/17412 Specimen Information: Blood Updated: 01/15/17 0557 SODIUM 128 (L) mmol/L POTASSIUM 4.1 mmol/L CHLORIDE 86 (L) mmol/L CO2 32 mmol/L ANION GAP AGAP 14 mmol/L GLUCOSE 209 (H) mg/dL BUN 31 (H) mg/dL CREATININE 1.2 mg/dL BUN/CREAT 26 CALCIUM 10.5 mg/dL EGFR >60 mL/min/1.73m2 Magnesium [[id number]] Collected: 01/15/17412 Specimen Information: Blood Updated: 01/15/17 0557 MAGNESIUM 2.1 mg/dL Phosphorus [[id number]] (Abnormal) Collected: 01/15/17412 Specimen Information: Blood Updated: 01/15/17 0557 PHOSPHORUS 5.5 (H) mg/dL CBC w/auto diff (reflex to manual) [[id number]] (Abnormal) Collected: 01/15/17412 Specimen Information: Blood Updated: 01/15/17 0535 WBC 18.91 (H) K/uL RBC 4.90 M/uL HGB 14.5 g/dL HCT 42.3 % MCV 86.3 fl MCH 29.5 pg MCHC 34.2 g/dL RDW SD 43.8 fl PLT 314 K/uL MPV 7.7 fl DIFF TYPE MANUAL Neutrophils Manual 82 % Bands 3 % METAMYELOCYTES 1 % Lymphocytes Manual 10 % Monocytes Manual 4 % Neutrophils Absolute 15.50 (H) K/uL Bands Manual 0.57 (H) K/uL Metamyelocytes Absolute 0.19 (H) K/uL Lymphocytes Absolute 1.89 K/uL Monocytes Absolute 0.76 K/uL MORPHOLOGY RBC AND PLT MORPHOLOGY APPEAR NORMAL Protime-INR [[id number]] Collected: 01/15/173 Specimen Information: Blood Updated: 01/15/17443 INR 1.1 POCT glucose [[id number]] (Abnormal) Collected: 01/14/17 1650 GLUCOSE,POC SCREEN 194 (H) mg/dL Updated: 01/14/17 1705 POCT glucose [[id number]] (Abnormal) Collected: 01/14/17 1158 GLUCOSE,POC SCREEN 227 (H) mg/dL Updated: 01/14/17 1205 POCT glucose [[id number]] (Abnormal) Collected: 01/14/17 0553 GLUCOSE,POC SCREEN 168 (H) mg/dL Updated: 01/14/17 0607 CBC w/auto diff (reflex to manual) [[id number]] (Abnormal) Collected: 01/14/17357 Specimen Information: Blood Updated: 01/14/17 0532 WBC 15.45 (H) K/uL RBC 4.53 M/uL HGB 13.3 g/dL HCT 38.9 (L) % MCV 85.7 fl MCH 29.3 pg MCHC 34.2 g/dL RDW SD 43.3 fl PLT 287 K/uL MPV 8.0 fl DIFF TYPE MANUAL Neutrophils Manual 70 % Bands 4 % Lymphocytes Manual 12 % Monocytes Manual 13 % Eosinophils Manual 1 % Neutrophils Absolute 10.82 (H) K/uL Bands Manual 0.62 (H) K/uL Lymphocytes Absolute 1.85 K/uL Monocytes Absolute 2.01 (H) K/uL Eosinophils Absolute 0.15 K/uL MORPHOLOGY RBC AND PLT MORPHOLOGY APPEAR NORMAL Basic metabolic panel [[id number]] (Abnormal) Collected: 01/14/17357 Specimen Information: Blood Updated: 01/14/17 0510 SODIUM 130 (L) mmol/L POTASSIUM 3.8 mmol/L CHLORIDE 91 (L) mmol/L CO2 30 mmol/L ANION GAP AGAP 13 mmol/L GLUCOSE 152 (H) mg/dL BUN 18 mg/dL CREATININE 0.9 mg/dL BUN/CREAT 20 CALCIUM 8.8 mg/dL EGFR >60 mL/min/1.73m2 Magnesium [[id number]] Collected: 01/14/17357 Specimen Information: Blood Updated: 01/14/17 0510 MAGNESIUM 1.9 mg/dL Phosphorus [[id number]] Collected: 01/14/17357 Specimen Information: Blood Updated: 01/14/17 0510 PHOSPHORUS 3.6 mg/dL Protime-INR [[id number]] Collected: 01/14/17357 Specimen Information: Blood Updated: 01/14/17 042 INR 1.1 POCT glucose [[id number]] (Abnormal) Collected: 01/14/17 0146 GLUCOSE,POC SCREEN 169 (H) mg/dL Updated: 01/14/17 0152 POCT glucose [[id number]] (Abnormal) Collected: 01/13/17 2137 GLUCOSE,POC SCREEN 153 (H) mg/dL Updated: 01/13/17 2144 POCT glucose [[id number]] (Abnormal) Collected: 01/13/17 1657 GLUCOSE,POC SCREEN 183 (H) mg/dL Updated: 01/13/17 1705 POCT glucose [[id number]] (Abnormal) Collected: 01/13/17 1459 GLUCOSE,POC SCREEN 188 (H) mg/dL Updated: 01/13/17 1705 Recent Labs Lab 01/16/17 0435 01/15/17 0413 01/14/17357 INR 1.1 1.1 1.1 Cta Head Neck 01/09/2017 1. Right T1 posterior elements screw extends into the right T1-T2 neural forame n. 2. Small tentorial subdural hematoma bilaterally. 3. Probable postoperative pneumocepha lidia, as above. 4. No evidence of hemodynamically significant arterial stenosis in the neck or head. 5. C6-C7 fracture, as above, with intact fusion from C3 to T2, in this patient wi th evidence of ankylosing spondylitis. Electronically signed by Arthur Rodriguez MD on 2016 6:49 PM Xr Abdomen 1 View 01/16/2017 Grossly negative supine 1-view abdomen x-ray. [facility] Electronically signed by Rich Cooper MD on Jan 16 2017 3:10AM Referring Provider Line: [phone] ID: [id number] Ct Head Without Contrast 01/14/2017 1. No acute intracranial findings. 2. Decreased postoperative pneumocephalus c ompared with 01/09/2017. 3. No definite evidence of over-shunting. Ct Cervical Spine Without Contrast 01/16/2017 1. Stable spinal alignment, status post posterior spine fusion from C3-T2 compar ed to the cervical spine CT from 01/12/2017. 2. Ankylosing spondylitis. RADIA Electronicall y signed by Yenifer Marie MD on Jan 16 2017 5:20AM Referring Provider Line: [phone] ID: [id number] Ct Cervical Spine Without Contrast 01/12/2017 1. Previously seen surgical drain has been removed. 2. Right-sided pedicle scr ew at C7 traverses the superior margin of the C7-T1 neural foramen and could affect the exit ing right C8 nerve root. Right-sided pedicle screw at T1 traverses the T1-2 neural foramen centrally and may be compressing the exiting right T1 nerve root. These findings are unchan ged from the previous exam. 3. All other transpedicular screws are in satisfactory position . 4. Enlarged left thyroid lobe suggesting goiter or large nodule. 5. Atrophy of the right submandibular gland with a 6 mm sialolith seen within the gland. Mri Brain Without Contrast 01/10/2017 Intraventricular and subarachnoid gas, the appearance is similar to the prior CT . No evidence of intracranial hemorrhage or recent infarct. [facility] Electronically signed by Artemoi Riddle MD on Jan 10 2017 12:26AM Referring Provider Line: [phone] ID: [id number] Mri Cervical Spine Without Contrast 01/10/2017 Posterior instrumentation from C3-T2. Interval widening of the C6-C7 disk space, this is at the level of fracture in this patient with ankylosing spondylitis. Examination s lightly limited by the implanted hardware, however, the central canal is patent throughout. No evidence of intraspinal hematoma. Region of T2 signal prolongation and mild swelling with in the right cervical cord centered at the C3-C4 level. Finding is new when compared to the prior MR and is consistent with recent injury. [facility] The above findings were discussed with Dr. Parikh by Dr. Artemio Riddle at 00:42 hrs on 01/10/17. Electronically signed by Artemio Riddle MD on Jan 10 2017 12:50AM Referring Provider Line: [phone] ID: [id number] Xr Chest 1 View 01/09/2017 1. Status post intubation and nasogastric tube placement, as above. 2. Increas ing bilateral basilar subsegmental atelectasis. 3. Status post spine fusion, with hardware partially visualized. X-ray C-arm Fluoro Over 1 Hour 01/09/2017 1. Procedural films, as above. LEM LIST Principal Problem: Closed nondisplaced fracture of seventh cervical vertebra (HCC) Active Problems: Maxillary fracture, left side, initial encounter for open fracture Antiphospholipid syndrome (HCC) Controlled type 2 diabetes mellitus with hyperglycemia (HCC) Syncope and collapse Thyroid mass CSF leak Non morbid obesity ASSESSMENT & PLAN POD 7 C3-T 2 fusion POD 4 Lumbar drain palcement Wound minimal draiange CSF draining at 15cc per hour HOB at 70 Disposition: Unknown Code Status: Full Code Mendez Morrison MD 01/16/2017 2:58 PM onversio n Transaction, Provider Unknown - 01/16/2017 2:35 PM PDTFormatting of this note might be di fferent from the original. Therapy Progress Note by Paul Gonzales PT at 01/16/17 143 Author: Paul Gonzales PT Service: (none) Author Type: Physical Therapist Filed: 01/16/17 143 Date of Service: 01/16/171434 Status: Signed Food Service Helper: Paul Gonzales PT (Physical Therapist) 01/16/17 1435 PT Last Visit PT Received On 01/16/17 Requires PT Follow Up On hold Other Comments Comments Talked with RN pt. is doing well but wants neuro surgeon to look at lumbar drain, will f/u tomorrow hah, Morales Townsend MD - 01/16/2017 8:53 AM PDTFormatting of this note might be different from the or iginal. Progress Notes by KAMRON Corral at 01/16/17 0853 Author: KAMRON Corral Service: Senior Staff Psychologist Author Type: Resident-Y2 Filed: 01/16/17 1738 Date of Service: 01/16/1748 Status: Attested Addendum Food Service Helper: KAMRON Corral (Resident-Y2) Related Notes: Original Note by KAMRON Corral (Resident-Y2) filed at 01/16/17 1120 Cosigner: Pk Jones MD at 01/16/171749 Attestation signed by Pk Jones MD at 01/16/171749 Attending: Pt is seen and examined with Dr Morales ramirez.. Discussed with him and agree with the findi ngs and plan as documented in his note.Laboratory tests and radiology images have been indep endently reviewed and confirmed. My thoughts have been incorporated in the above-mentioned n ote. The patients plan was discussed with Dr morrison. The patients hydrochlorothiazide was sto pped. His sodium is better today . Please bill 35 minutes of critical care time spent . [facility] Service: Senior Staff Psychologist Progress Note Jose Rafael Walker 66 y.o. Hospital Day: LOS: 9 days Post-Op Day: Day of Surgery Consulting Physicians Treatment Team: Consulting Physician: Mendez Morrison MD Consulting Physician: Jeovany Jennings MD Admitting Provider: Moni Dumont DO SUBJECTIVE Patient Summary: From Dr Dumont's H&P: The patient is a 66 y.o. male with significant past medical history of ankylosing spondylit is, diabetes type II, deep vein thrombosis, iron deficiency anemia, testicular hypofunction, obesity, hypertension, dyslipidemia, abdomen disorder, transient ischemic attack, non ambul atory ankylosing spondylitis, who presents to transfer from [facility] with a C7 fracture, left maxillary sinus fracture, thyroid mass and syncope. [facility] left sided face swelling, neck pain, confusion and difficulty remembe ring anything. Per history, patient woke up in a chair, went into the bathroom and found thi ngs in disarray. Granddaughter was then notified by neighbors that they heard a crashing berta nd earlier around 1:30. During the day patient had being a but was in the his usual state of health, came home and went to sleep on his recliner. He cannot remember anything th at happened, next thing that he was clear in his mind was his granddaughter asking questions . Patient denies any chest pain, shortness of breath, headache, dizziness, confusion, fever, chills or illness prior to his syncopal episode/ amnestic event. Reports chronic right shou lder pain. Reports neck pain with movement of his legs or any part of his body. He denies any dysphagi a. ED findings: C7 fracture, leukocytosis, hypokalemia, thyroid mass, left maxillary sinus fra cture [facility] ED treatment: Dilaudid, morphine, cyclobenzaprine From Dr Saravia's most recent progress note: 66-year-old gentleman with past medical history of ankylosing spondylitis, diabetes mellitu s type II on insulin, history of deep vein thrombosis, iron deficiency anemia, hypertension hyperlipidemia history of transient ischemic attack who had a fall in his bathroom and was t aken to the hospital with neck pain found to have C7 fracture, left maxillary sinus fracture , enlarged left thyroid lobe suggesting goiter a large nodule and patient does not recall th e circumstances of all though he admitted that he takes morphine which might have makes him loopy and had a fall because affect. Patient underwent C3-C4, 3-5, 5-6, 6-7, C7-T1, T1-T2 posterior pedicle L mass lesion by Dr. Rivera on 09 january and postoperatively patient was intubated for airways protection and transferred to ICU and was transferred back to the floor on 11 january. Patient had a syncope workup including echocardiogram which showed normal ejection fraction ,no significant valvular abnormalities and CT neck was negative for any stenosis, aneurysm or dissection ICU Timeline: 01/12: Admitted to ICU after placement of Lumbar drain by Neurosurgery due to CSF leak 01/13: Lumbar drain remains in place with hourly drainage of 15mls of CSF 01/14: Lumbar drain in place. Working with PT daily 01/16: Lumbar Drain was leaking from the incision site. Dr. Morrison to come later toda y and put in a suture to close the leak site. Events Overnight: No significant issues overnight. Still draining at 15cc/hr, Lumbar Drain still in place. Small leak noticed at the incision site for the drain which will be fi xed by Dr. Morrison today. No other acute issues at this point. Denies any chest pain or sh ortness of breath. SCHEDULED MEDICATIONS allopurinol 100 mg Oral Daily bisacodyl 10 mg Rectal Daily calcium carbonate-vitamin D 1 tablet Oral BID WC cyclobenzaprine 10 mg Oral TID heparin (porcine) 5000 unit/0.5mL 5,000 Units Subcutaneous 3 times per day insulin detemir 30 Units Subcutaneous BID insulin lispro (human) 0-10 Units Subcutaneous TID AC insulin lispro (human) 0-5 Units Subcutaneous Nightly insulin lispro (human) 6 Units Subcutaneous TID AC levothyroxine 50 mcg Oral QAM AC lidocaine buffered 1% 0.5 mL Intradermal Once lisinopril 10 mg Oral Daily morphine 60 mg Oral 2 times per day pantoprazole 40 mg Oral QAM AC sodium chloride 10 mL Intravenous 2 times per day sodium chloride 1 g Oral TID WC zinc sulfate 220 mg Oral Daily CONTINUOUS INFUSIONS dextrose dextrose OBJECTIVE VITAL SIGNS Temp: [97.4 F (36.3 C)-98.3 F (36.8 C)] 97.4 F (36.3 C) Heart Rate: [72-99] 78 Resp: [18-20] 20 BP: (85-114)/(46-55) 96/46 mmHg Intake/Output Summary (Last 24 hours) at 01/16/17 1120 Last data filed at 01/16/17 1041 Gross per 24 hour Intake 4526.03 ml Output 985 ml Net 3541.03 ml EXAM GEN: awake, alert, oriented x3, appears comfortable at this time, sitting on the chair duri ng my examination NEURO: PERRLA, EOMI, no facial asymmetry, moves all extremities well GCS: 15 HEENT: sclerae clear, nonicteric, oral mmm, pink, no exudates NECK: supple, trachea midline, C Collar in place CV: RRR, S1/S2, no murmur, rub or gallop, peripheral pulses palpable, cap refill brisk LUNGS: clear b/l, no wheezing, rales or rhonchi, symmetric chest expansion, even/unlabored respirations ABD: soft, nondistended, nontender to palpation, no masses, no hepatosplenomegaly EXTR: 1+ BLE edema, no clubbing or cyanosis SKIN: warm, dry, no rash or mottling; no e/o skin breakdown over the occiput, scapulae, elb ows, sacrum or heels. Surgical incisions dressed. Dressing were soaked due to lumbar drain leak. LINES/TUBES: PIV X 2, Lumbar drain with clear CSF in collection bag DATA Recent Labs Lab 01/16/17 0435 01/15/17 0413 01/14/17 0358 01/13/17 0414 01/11/17 0407 01/09/17 1825 WBC 11.72* 18.91* 15.45* 16.48* < > 25.36* < > 18.34* RBC 3.94* 4.90 4.53 4.46 < > 3.94* < > 4.17* HGB 11.6* 14.5 13.3 13.0* < > 11.3* < > 12.3* HCT 33.5* 42.3 38.9* 38.5* < > 33.5* < > 35.6* MCV 85.0 86.3 85.7 86.3 < > 85.2 < > 85.4 MCH 29.4 29.5 29.3 29.2 < > 28.7 < > 29.6 MCHC 34.6 34.2 34.2 33.8 < > 33.7 < > 34.7 RDW 44.2 43.8 43.3 44.6 < > 43.3 < > 43.3 PLT 262 314 287 288 < > 222 < > 219 MPV 7.9 7.7 8.0 8.3 < > 8.1 < > 7.5 BANDSABS -- 0.57* 0.62* -- -- 1.78* < > -- NEUTROABS 9.67* -- -- -- -- -- -- 17.49* LYMPHSABS 0.89* -- -- -- -- -- -- 0.53* MONOSABS 0.99* -- -- -- -- -- -- 0.28 BASOSABS 0.02 -- -- -- -- -- -- 0.03 EOSABS 0.16 -- -- -- -- -- -- 0.01 MORPH -- RBC AND PLT MORPHOLOGY APPEAR NORMAL RBC AND PLT MORPHOLOGY APPEAR NORMAL RBC AN D PLT MORPHOLOGY APPEAR NORMAL < > RBC AND PLT MORPHOLOGY APPEAR NORMAL < > RBC AND PLT MO RPHOLOGY APPEAR NORMAL < > = values in this interval not displayed. Recent Labs Lab 01/16/17 0845 01/16/1743401/15/17 1355 01/15/17 0413 01/14/17 0358 01/09/17 1825 NA -- 130* 126* 128* 130* < > 138 K 3.2* 3.4* -- 4.1 3.8 < > 5.0* CL -- 91* -- 86* 91* < > 105 CO2 -- 27 -- 32 30 < > 26 ANIONGAP -- 15 -- 14 13 < > 11 GLUF -- 121* -- 209* 152* < > 270* BUN -- 51* -- 31* 18 < > 15 CREATININE -- 1.1 -- 1.2 0.9 < > 0.96 BCR -- 46 -- 26 20 < > 16 CA -- 9.2 -- 10.5 8.8 < > 7.1* ALB -- -- -- -- -- -- 2.7* GLOB -- -- -- -- -- -- 3.2 AG -- -- -- -- -- -- 0.8* PROT -- -- -- -- -- -- 5.9* BILITOT -- -- -- -- -- -- 1.1 ALT -- -- -- -- -- -- 42 AST -- -- -- -- -- -- 43 EGFR -- >60 -- >60 >60 < > >60 PHOS -- 3.2 -- 5.5* 3.6 < > 3.6 MG -- 2.0 -- 2.1 1.9 < > 2.2 < > = values in this interval not displayed. Recent Labs Lab 01/16/1743401/15/1741201/14/17 0358 INR 1.1 1.1 1.1 IMAGING Cta Head Neck 01/09/2017 1. Right T1 posterior elements screw extends into the right T1-T2 neural forame n. 2. Small tentorial subdural hematoma bilaterally. 3. Probable postoperative pneumocepha lidia, as above. 4. No evidence of hemodynamically significant arterial stenosis in the neck or head. 5. C6-C7 fracture, as above, with intact fusion from C3 to T2, in this patient wi th evidence of ankylosing spondylitis. Electronically signed by Arthur Rodriguez MD on 2016 6:49 PM X-ray Shoulder Right Complete 2+v 01/07/2017 FINDINGS/ IMPRESSION: 1. No acute fracture or dislocation. 2. 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 3. Osteopenia. Electronicall y signed by Cierra López on 01/07/2017 1:49 PM X-ray Knee Limited Left 01/07/2017 No acute fracture or dislocation. No bone, joint or soft tissue abnormality. Kristy ctronically signed by Omkar Lopes MD on 01/07/2017 6:58 AM X-ray Knee Limited Right 01/07/2017 No acute fracture or dislocation. No bone, joint or soft tissue abnormality. Kristy ctronically signed by Omkar Lopes MD on 01/07/2017 6:57 AM Xr Abdomen 1 View 01/16/2017 Grossly negative supine 1-view abdomen x-ray. RAD[facility] Electronically signed by Rich Cooper MD on Jan 16 2017 3:10AM Referring Provider Line: [phone] ID: [id number] Ct Head Without Contrast 01/14/2017 1. No acute intracranial findings. 2. Decreased postoperative pneumocephalus c ompared with 01/09/2017. 3. No definite evidence of over-shunting. Cta Neck With Iv Contrast 01/07/2017 1. No evidence of significant hemodynamic stenosis, aneurysm, or dissection inv olving the carotid arteries in the neck. 2. Depressed fracture of the anterior wall of the left maxillary sinus with overlying soft tissue swelling and emphysema. Electronically malachi d by Raf Donnelly on 01/07/2017 11:[address] Cervical Spine Without Contrast 01/16/2017 1. Stable spinal alignment, status post posterior spine fusion from C3-T2 compar ed to the cervical spine CT from 01/12/2017. 2. Ankylosing spondylitis. RADIA Electronicall y signed by Yenifer Marie MD on Jan 16 2017 5:20AM Referring Provider Line: [phone] ID: [id number] Ct Cervical Spine Without Contrast 01/12/2017 1. Previously seen surgical drain has been removed. 2. Right-sided pedicle scr ew at C7 traverses the superior margin of the C7-T1 neural foramen and could affect the exit ing right C8 nerve root. Right-sided pedicle screw at T1 traverses the T1-2 neural foramen centrally and may be compressing the exiting right T1 nerve root. These findings are unchan ged from the previous exam. 3. All other transpedicular screws are in satisfactory position . 4. Enlarged left thyroid lobe suggesting goiter or large nodule. 5. Atrophy of the right submandibular gland with a 6 mm sialolith seen within the gland. Mri Brain Without Contrast 01/10/2017 Intraventricular and subarachnoid gas, the appearance is similar to the prior CT . No evidence of intracranial hemorrhage or recent infarct. [facility] Electronically signed by Artemio Riddle MD on Jan 10 2017 12:26AM Referring Provider Line: [phone] ID: [id number] Mri Cervical Spine Without Contrast 01/10/2017 Posterior instrumentation from C3-T2. Interval widening of the C6-C7 disk space, this is at the level of fracture in this patient with ankylosing spondylitis. Examination s lightly limited by the implanted hardware, however, the central canal is patent throughout. No evidence of intraspinal hematoma. Region of T2 signal prolongation and mild swelling with in the right cervical cord centered at the C3-C4 level. Finding is new when compared to the prior MR and is consistent with recent injury. RADIA The above findings were discussed with Dr. Parikh by Dr. Artemio Riddle at 00:42 hrs on 01/10/17. Electronically signed by Artemio Riddle MD on Jan 10 2017 12:50AM Referring Provider Line: [phone] ID: [id number] Mri C-spine Without Contrast 01/07/2017 Left thyroid mass measures up to 3.8 cm. Consider correlation with thyroid ultra sound. Changes of ankylosing spondylitis throughout the cervical and upper thoracic spine. T here is a small amount of prevertebral soft tissue edema. 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 T2 signal prolongation within the disk s pace at C6-C7. Findings represent nondisplaced fracture through the ankylosed spine at this level. [facility] Electronically signed by Artemio Riddle MD on Jan 07 2017 1:18AM Referring Prov ider Line: [phone] ID: [id number] Xr Chest 1 View 01/09/2017 1. Status post intubation and nasogastric tube placement, as above. 2. Increas ing bilateral basilar subsegmental atelectasis. 3. Status post spine fusion, with hardware partially visualized. Ct Facial Bones 01/07/2017 1. Acute displaced fracture of the anterolateral wall of the left maxillary sinu s (series 4 image 30, series 3 image 70). The fracture fragment is displaced superomedially and posteriorly into the left maxillary sinus. 2. Given the left maxillary sinus wall fractu re, there is now resulting soft tissue emphysema within the left submandibular space, left m asticator space, and left periorbital soft tissues. 3. 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 No evidence of acute fracture or malalignment involving the spine. However, given the ankylosed spine MRI of the spine is recommended, as clinically indicated, to further evalua te. [facility]IA Electronically signed by Divya Prieto MD on Jan 07 2017 1:30AM Referring Pro vider Line: [phone] ID: [id number] Echo Cardiac Adult Limited 01/07/2017 1. The left ventricle is normal in size, mild concentric hypertrophy and hyperdy namic systolic function EF >70%. 2. The right ventricle is moderately enlarged with normal s ystolic function. 3. The aortic valve is mildly calcified with mild aortic regurgitation. 4. There is no pericardial effusion. X-ray C-arm Fluoro Over 1 Hour 01/09/2017 1. Procedural films, as above. Ct Thoracic Lumbar Without Contrast 01/07/2017 1. Diffuse ankylosis of the spine. No evidence of acute fracture or traumatic s ubluxation. If there is continued concern for acute fracture or ligamentous injury, consider further evaluation with MRI. 2. Minimal compression of the superior endplate of L1 which i s age indeterminate. LEM LIST Principal Problem: Closed nondisplaced fracture of seventh cervical vertebra (HCC) Active Problems: Maxillary fracture, left side, initial encounter for open fracture Antiphospholipid syndrome (HCC) Controlled type 2 diabetes mellitus with hyperglycemia (HCC) Syncope and collapse Thyroid mass CSF leak Non morbid obesity Resolved Problems: * No resolved hospital problems. * ASSESSMENT & PLAN NEURO: CSF lumbar drain leak: Dr. morrison to fix the leak site with a stitch today. CSF Leak: Lumbar drain placed by Neurosurgery 01/12. Orders to drain 15mls of CSF Q 1 h our as per NS and keep HOB >30 degrees. Okay to ambulate with drain off as per NS. Monitor neuro status closely Cervical Fracture: S/P fusion C3 to T2. Remains in C collar. Post surgical management by NS CAM ICU each shift CV: Hypertension: Currently treated on lisinopril 10mg PO daily. Vitals have been stable wi latest blood pressure: 108/53 PULM: No acute pulmonary issues at this time GI/NUTRITION: Diabetic maintenance diet Patient has not had a bowel movement since admission, taking MS contin for pain control. Started patient on Methylnaltrexone to help with decreased opioid effects of constipation a nd assist with a bowel movement. RENAL/LYTES: Latest Sodium levels at 130. Avoid nephrotoxins Monitor electrolytes and replace as per ICU protocol ID: Afebrile with WBC slightly up today and decreasing Bandemia. No ABX treatment at this t yeison; monitor closely HEME: H/H improved; Last Hbg/Hct : 11.6/33.5 Antiphospholipid Syndrome: Chronic anticoagulation to resume as per Neurosurgery and He matology. 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 Resume chronic anticoagulation as per José Miguel rosurgery VAP bundle: Not Indicated. Disposition: ICU care for monitoring/hourly drainage of CSF from lumbar drain. Dr. Pratima galindo to follow today and put a stitch on the drain to stop the leak. Code Status: Full Code Morales Ramirez MD-R2 01/16/2017 onversio n Transaction, Provider Unknown - 01/15/2017 7:29 PM PDTFormatting of this note might be di fferent from the original. Progress Notes by Karen Blanchard at 01/15/171928 Author: Karen Blanchard Service: Specialist Author Type: Qa Internship Filed: 01/15/171929 Date of Service: 01/15/171928 Status: Signed Food Service Helper: Karen Blanchard (Qa Internship) Attempted indoor sports centre manager visit pt sleeping in recliner. Mendez Oconnor MD - 01/15/2017 11:52 AM PDT Progress Notes by Mendez Morrison MD at 01/15/17 1152 Author: Mendez Morrison MD Service: Neurosurgery Author Type: Physician Filed: 01/15/17 1156 Date of Service: 01/15/17 1152 Status: Signed Food Service Helper: Mendez Morrison MD (Physician) [facility] Service: Neurosurgery Progress Note Hospital Day: LOS: 8 days Post-Op Day: 3 Days Post-Op Surgery/Procedure: Procedure(s) (LRB): LUMBAR - DRAINAGE (N/A) SUBJECTIVE Patient Summary: Doing fine, Minimal spinal headaches Events Overnight: No acute events, No soakage of dressing Scheduled Medications allopurinol 100 mg Oral Daily bisacodyl 10 mg Rectal Daily calcium carbonate-vitamin D 1 tablet Oral BID WC cyclobenzaprine 10 mg Oral TID heparin (porcine) 5000 unit/0.5mL 5,000 Units Subcutaneous 3 times per day insulin detemir 30 Units Subcutaneous BID insulin lispro (human) 0-10 Units Subcutaneous TID AC insulin lispro (human) 0-5 Units Subcutaneous Nightly insulin lispro (human) 6 Units Subcutaneous TID AC levothyroxine 50 mcg Oral QAM AC lisinopril 10 mg Oral Daily morphine 60 mg Oral 2 times per day pantoprazole 40 mg Oral QAM AC sodium chloride 1 g Oral TID WC zinc sulfate 220 mg Oral Daily Continuous Infusions dextrose dextrose sodium chloride (IV) 125 mL/hr at 01/15/17 0947 PRN Medications acetaminophen OR acetaminophen, mjugwkoohl-hohhlxolpkhsn-wbqhwmfo, carboxymethylcellulo se, dextrose, dextrose, dextrose, dextrose, docusate sodium OR docusate, fentaNYL OR fentaNYL, glucagon, glucagon, lactulose, magnesium sulfate OR magnesium sulfate OR magnesium sulfate, morphine, nystatin, nystatin, ondansetron OR ondansetron, petrolatum, phosphorus OR sodium phosphate IVPB 20 mmol OR sodium phosphate IVPB 45 mmol, polye thylene glycol, potassium OR potassium OR potassium OR potassium chloride OR potassium chloride OR potassium chloride, simethicone OBJECTIVE Vital Signs: BP 123/68 mmHg | Pulse 95 | Temp(Src) 98.2 F (36.8 C) (Oral) | Resp 10 | Ht 1.778 m (5' 10") | Wt 119.4 kg (263 lb 3.7 oz) | BMI 37.77 kg/m2 | SpO2 96% Ox3 craft demonstrator intact 5/5 x4 Sensation intact No radicular pain Wound CDI DATA Recent Labs Lab 01/15/17 0413 01/14/17 0358 01/13/17 0414 WBC 18.91* 15.45* 16.48* RBC 4.90 4.53 4.46 HGB 14.5 13.3 13.0* HCT 42.3 38.9* 38.5* MCV 86.3 85.7 86.3 MCH 29.5 29.3 29.2 MCHC 34.2 34.2 33.8 RDW 43.8 43.3 44.6 PLT 314 287 288 MPV 7.7 8.0 8.3 DIFFTYPE MANUAL MANUAL MANUAL Results Procedure Component Value Units Date/Time POCT glucose [[id number]] (Abnormal) Collected: 01/15/17 0606 GLUCOSE,POC SCREEN 228 (H) mg/dL Updated: 01/15/17613 POCT glucose [[id number]] (Abnormal) Collected: 01/14/17 2159 GLUCOSE,POC SCREEN 162 (H) mg/dL Updated: 01/15/17613 Basic metabolic panel [[id number]] (Abnormal) Collected: 01/15/17412 Specimen Information: Blood Updated: 01/15/1757 SODIUM 128 (L) mmol/L POTASSIUM 4.1 mmol/L CHLORIDE 86 (L) mmol/L CO2 32 mmol/L ANION GAP AGAP 14 mmol/L GLUCOSE 209 (H) mg/dL BUN 31 (H) mg/dL CREATININE 1.2 mg/dL BUN/CREAT 26 CALCIUM 10.5 mg/dL EGFR >60 mL/min/1.73m2 Magnesium [[id number]] Collected: 01/15/17412 Specimen Information: Blood Updated: 01/15/17 0557 MAGNESIUM 2.1 mg/dL Phosphorus [[id number]] (Abnormal) Collected: 01/15/17412 Specimen Information: Blood Updated: 01/15/17 0557 PHOSPHORUS 5.5 (H) mg/dL CBC w/auto diff (reflex to manual) [[id number]] (Abnormal) Collected: 01/15/17412 Specimen Information: Blood Updated: 01/15/1735 WBC 18.91 (H) K/uL RBC 4.90 M/uL HGB 14.5 g/dL HCT 42.3 % MCV 86.3 fl MCH 29.5 pg MCHC 34.2 g/dL RDW SD 43.8 fl PLT 314 K/uL MPV 7.7 fl DIFF TYPE MANUAL Neutrophils Manual 82 % Bands 3 % METAMYELOCYTES 1 % Lymphocytes Manual 10 % Monocytes Manual 4 % Neutrophils Absolute 15.50 (H) K/uL Bands Manual 0.57 (H) K/uL Metamyelocytes Absolute 0.19 (H) K/uL Lymphocytes Absolute 1.89 K/uL Monocytes Absolute 0.76 K/uL MORPHOLOGY RBC AND PLT MORPHOLOGY APPEAR NORMAL Protime-INR [[id number]] Collected: 01/15/17412 Specimen Information: Blood Updated: 01/15/17443 INR 1.1 POCT glucose [[id number]] (Abnormal) Collected: 01/14/17 1650 GLUCOSE,POC SCREEN 194 (H) mg/dL Updated: 01/14/17 1705 POCT glucose [[id number]] (Abnormal) Collected: 01/14/17 1158 GLUCOSE,POC SCREEN 227 (H) mg/dL Updated: 01/14/17 1205 POCT glucose [[id number]] (Abnormal) Collected: 01/14/17 0553 GLUCOSE,POC SCREEN 168 (H) mg/dL Updated: 01/14/17 0607 CBC w/auto diff (reflex to manual) [[id number]] (Abnormal) Collected: 01/14/17357 Specimen Information: Blood Updated: 01/14/17 0532 WBC 15.45 (H) K/uL RBC 4.53 M/uL HGB 13.3 g/dL HCT 38.9 (L) % MCV 85.7 fl MCH 29.3 pg MCHC 34.2 g/dL RDW SD 43.3 fl PLT 287 K/uL MPV 8.0 fl DIFF TYPE MANUAL Neutrophils Manual 70 % Bands 4 % Lymphocytes Manual 12 % Monocytes Manual 13 % Eosinophils Manual 1 % Neutrophils Absolute 10.82 (H) K/uL Bands Manual 0.62 (H) K/uL Lymphocytes Absolute 1.85 K/uL Monocytes Absolute 2.01 (H) K/uL Eosinophils Absolute 0.15 K/uL MORPHOLOGY RBC AND PLT MORPHOLOGY APPEAR NORMAL Basic metabolic panel [[id number]] (Abnormal) Collected: 01/14/17357 Specimen Information: Blood Updated: 01/14/17 0510 SODIUM 130 (L) mmol/L POTASSIUM 3.8 mmol/L CHLORIDE 91 (L) mmol/L CO2 30 mmol/L ANION GAP AGAP 13 mmol/L GLUCOSE 152 (H) mg/dL BUN 18 mg/dL CREATININE 0.9 mg/dL BUN/CREAT 20 CALCIUM 8.8 mg/dL EGFR >60 mL/min/1.73m2 Magnesium [[id number]] Collected: 01/14/17357 Specimen Information: Blood Updated: 01/14/17 0510 MAGNESIUM 1.9 mg/dL Phosphorus [[id number]] Collected: 01/14/17357 Specimen Information: Blood Updated: 01/14/17 0510 PHOSPHORUS 3.6 mg/dL Protime-INR [[id number]] Collected: 01/14/17357 Specimen Information: Blood Updated: 01/14/17428 INR 1.1 POCT glucose [[id number]] (Abnormal) Collected: 01/14/17 0146 GLUCOSE,POC SCREEN 169 (H) mg/dL Updated: 01/14/17 0152 POCT glucose [[id number]] (Abnormal) Collected: 01/13/17 2137 GLUCOSE,POC SCREEN 153 (H) mg/dL Updated: 01/13/17 2144 POCT glucose [[id number]] (Abnormal) Collected: 01/13/17 1657 GLUCOSE,POC SCREEN 183 (H) mg/dL Updated: 01/13/17 170 POCT glucose [[id number]] (Abnormal) Collected: 01/13/17 1459 GLUCOSE,POC SCREEN 188 (H) mg/dL Updated: 01/13/17 170 POCT glucose [[id number]] (Abnormal) Collected: 01/13/17 0928 GLUCOSE,POC SCREEN 141 (H) mg/dL Updated: 01/13/1730 CBC w/auto diff (reflex to manual) [[id number]] (Abnormal) Collected: 01/13/17413 Specimen Information: Blood Updated: 01/13/17529 WBC 16.48 (H) K/uL RBC 4.46 M/uL HGB 13.0 (L) g/dL HCT 38.5 (L) % MCV 86.3 fl MCH 29.2 pg MCHC 33.8 g/dL RDW SD 44.6 fl PLT 288 K/uL MPV 8.3 fl DIFF TYPE MANUAL Neutrophils Manual 76 % Lymphocytes Manual 19 % Monocytes Manual 5 % Neutrophils Absolute 12.53 (H) K/uL Lymphocytes Absolute 3.13 K/uL Monocytes Absolute 0.82 (H) K/uL MORPHOLOGY RBC AND PLT MORPHOLOGY APPEAR NORMAL Basic metabolic panel [[id number]] (Abnormal) Collected: 01/13/17413 Specimen Information: Blood Updated: 01/13/17504 SODIUM 133 (L) mmol/L POTASSIUM 4.2 mmol/L CHLORIDE 93 (L) mmol/L CO2 31 mmol/L ANION GAP AGAP 13 mmol/L GLUCOSE 127 (H) mg/dL BUN 23 mg/dL CREATININE 1.0 mg/dL BUN/CREAT 23 CALCIUM 9.1 mg/dL EGFR >60 mL/min/1.73m2 Magnesium [[id number]] Collected: 01/13/17413 Specimen Information: Blood Updated: 01/13/17 0505 MAGNESIUM 2.0 mg/dL Phosphorus [[id number]] Collected: 01/13/17413 Specimen Information: Blood Updated: 01/13/17 050 PHOSPHORUS 4.3 mg/dL Protime-INR [[id number]] Collected: 01/13/17413 Specimen Information: Blood Updated: 01/13/17440 INR 1.1 POCT glucose [[id number]] (Abnormal) Collected: 01/13/17219 GLUCOSE,POC SCREEN 136 (H) mg/dL Updated: 01/13/17223 Type and screen [[id number]] Collected: 01/09/17442 Specimen Information: Blood Updated: 01/12/172325 ABO/RH(D) A POSITIVE ANTIBODY SCREEN NEGATIVE ARM BAND NUMBER [id number] UNIT NUMBER [id number] BLOOD COMPONENT TYPE LEUKODEPLETED PC UNIT DIVISION 00 STATUS OF UNIT ISSUED,FINAL TRANSFUSION STATUS OK TO TRANSFUSE CROSSMATCH RESULT COMPATIBLE UNIT NUMBER [id number] BLOOD COMPONENT TYPE LEUKODEPLETED PC UNIT DIVISION 00 STATUS OF UNIT ISSUED,FINAL TRANSFUSION STATUS OK TO TRANSFUSE CROSSMATCH RESULT COMPATIBLE UNIT NUMBER [id number] BLOOD COMPONENT TYPE LEUKODEPLETED PC UNIT DIVISION 00 STATUS OF UNIT REL FROM ALLOC TRANSFUSION STATUS OK TO TRANSFUSE CROSSMATCH RESULT -- Result: COMPATIBLE Testing performed at [facility] [place];[address] [place] [id number] UNIT NUMBER [id number] BLOOD COMPONENT TYPE LEUKODEPLETED PC UNIT DIVISION 00 STATUS OF UNIT REL FROM ALLOC TRANSFUSION STATUS OK TO TRANSFUSE CROSSMATCH RESULT COMPATIBLE POCT glucose [[id number]] (Abnormal) Collected: 01/12/17 1643 GLUCOSE,POC SCREEN 178 (H) mg/dL Updated: 01/12/17 2322 POCT glucose [[id number]] (Abnormal) Collected: 01/12/17 1214 GLUCOSE,POC SCREEN 157 (H) mg/dL Updated: 01/12/17 1216 Recent Labs Lab 01/15/17 0413 01/14/17 0358 01/13/17 0414 INR 1.1 1.1 1.1 Cta Head Neck 01/09/2017 1. Right T1 posterior elements screw extends into the right T1-T2 neural forame n. 2. Small tentorial subdural hematoma bilaterally. 3. Probable postoperative pneumocepha lidia, as above. 4. No evidence of hemodynamically significant arterial stenosis in the neck or head. 5. C6-C7 fracture, as above, with intact fusion from C3 to T2, in this patient wi th evidence of ankylosing spondylitis. Electronically signed by Arthur Rodriguez MD on 2016 6:[address] Head Without Contrast 01/14/2017 1. No acute intracranial findings. 2. Decreased postoperative pneumocephalus c ompared with 01/09/2017. 3. No definite evidence of over-shunting. Ct Cervical Spine Without Contrast 01/12/2017 1. Previously seen surgical drain has been removed. 2. Right-sided pedicle scr ew at C7 traverses the superior margin of the C7-T1 neural foramen and could affect the exit ing right C8 nerve root. Right-sided pedicle screw at T1 traverses the T1-2 neural foramen centrally and may be compressing the exiting right T1 nerve root. These findings are unchan ged from the previous exam. 3. All other transpedicular screws are in satisfactory position . 4. Enlarged left thyroid lobe suggesting goiter or large nodule. 5. Atrophy of the right submandibular gland with a 6 mm sialolith seen within the gland. Mri Brain Without Contrast 01/10/2017 Intraventricular and subarachnoid gas, the appearance is similar to the prior CT . No evidence of intracranial hemorrhage or recent infarct. RADIA Electronically signed by Artemio Riddle MD on Jan 10 2017 12:26AM Referring Provider Line: [phone] ID: [id number] Mri Cervical Spine Without Contrast 01/10/2017 Posterior instrumentation from C3-T2. Interval widening of the C6-C7 disk space, this is at the level of fracture in this patient with ankylosing spondylitis. Examination s lightly limited by the implanted hardware, however, the central canal is patent throughout. No evidence of intraspinal hematoma. Region of T2 signal prolongation and mild swelling with in the right cervical cord centered at the C3-C4 level. Finding is new when compared to the prior MR and is consistent with recent injury. RADIA The above findings were discussed with Dr. Parikh by Dr. Artemio Riddle at 00:42 hrs on 01/10/17. Electronically signed by Artemio Riddle MD on Jan 10 2017 12:50AM Referring Provider Line: [phone] ID: [id number] Xr Chest 1 View 01/09/2017 1. Status post intubation and nasogastric tube placement, as above. 2. Increas ing bilateral basilar subsegmental atelectasis. 3. Status post spine fusion, with hardware partially visualized. X-ray C-arm Fluoro Over 1 Hour 01/09/2017 1. Procedural films, as above. LEM LIST Principal Problem: Closed nondisplaced fracture of seventh cervical vertebra (HCC) Active Problems: Maxillary fracture, left side, initial encounter for open fracture Antiphospholipid syndrome (HCC) Controlled type 2 diabetes mellitus with hyperglycemia (HCC) Syncope and collapse Thyroid mass CSF leak Non morbid obesity ASSESSMENT & PLAN POD 6 C3-T 2 fusion POD 3 Lumbar drain palcement Wound dry CSF draining at 15cc per hour HOB at 70 Disposition: Unknown Code Status: Full Code Mendez Morrison MD 01/15/2017 11:52 AM onversio n Transaction, Provider Unknown - 01/15/2017 10:24 AM PDTFormatting of this note might be di fferent from the original. Therapy Progress Note by Brook Beasley PT at 01/15/17 1024 Author: Brook Beasley PT Service: (none) Author Type: Physical Therapist Filed: 01/15/17 1700 Date of Service: 01/15/17 1024 Status: Signed Food Service Helper: Brook Beasley PT (Physical Therapist) 01/15/17 1024 PT Last Visit PT Received On 01/15/17 Reason for Treatment Spinal surgery (C3-T2 fusion; lumbar drain) Requires PT Follow Up Yes Follow up PT Only? No Assistance Required 1 person Precautions Spinal Precautions Cervical;Cervical collar on when upright Other Precautions HOB elevated to 60-70 deg at all times, Lumbar drain, Fall risk Other Comments Comments Pt in supine upon arrival. Appears severely diaphoretic. Pre-activity: BP 123/68, HR 101 bpm, SpO2 97% on 2 L O2 but maintained sats of 96% and above on RA so O2 was removed. Pt reporting great discomfort in abdomen which appears very distended. Pt requires signific ant assist for bed mobility d/t distension and the fact that pt does not typically sleep in bed. Pt reports mild dizziness upon sitting but symptoms improved and BP showed minimal mahi nge of <5 point systolic/diastolic. Pt took excessive time to use urinal. Pt burps frequentl y. Pt still having some radicular symptoms down RUE to wrist, rated 4/10. Pt's khalif is s low and he requires occasional cueing for upright trunk posture. Pt's greatest discomfort wh en ambulating is in abdomen d/t distention. Pt left in bathroom on toilet at end of session to attempt BM. Call string in reach; RN aware. Cognition Overall Cognitive Status WFL Orientation Level Oriented Bed Mobility Supine to Sit Max assist (BLEs OOB & trunk to upright) (pt has not slept in bed for 8 yrs) Scooting Minimal assist;Anterior/posterior (sitting EOB) Transfers Sit to/from Stand Verbal instruction;Standby assist;Minimal assist (steadying/contact guard ) Mobility Ambulation Assistance Standby assist Maximal Ambulation Distance (feet) 250 Total Ambulation Distance (feet) 250 Distance limited by? Patient's ability Pattern Decreased khalif;Right swing foot doesn't pass stance foot;Left swing foot doesn't pass stance foot;Wide base Assistive Device Walker front wheeled Seated Seated-Exercise Type Long arc quads;Toe raises;Heel raises Seated-Exercise Comments x 5 ea bilat Activity Tolerance Activity Tolerance Patient limited by pain Nurse Made Aware KARISSA Costa Safety Devices Safety Devices in Place (pt left sitting on toilet for BM; call string in reach) Plan Treatment/Interventions Continue per Primary PT POC Progress Progressing toward goals Recommendation Recommendations Home Assist Barriers to Discharge Physical Deficits Impacting Functional Harding;Self-care Deficit s Impacting Functional Harding;Pain Recommendation Comments Pt continues to verify that his grandchildren plan to move in with him and assist as much as needed (up to 15/03). Pt's greatest barrier to mobility today is co nstipation discomfort. May benefit from massage consult for muscle spasm pain. HHPT vs. OP PT pending progress with mobility over next few days. onver jacki Transaction, Provider Unknown - 01/15/2017 9:39 AM PDT Therapy Progress Note by REGINALDO Swan at 01/15/17938 Author: REGINALDO Swan Service: (none) Author Type: Massage Therapist Filed: 01/15/17938 Date of Service: 01/15/17938 Status: Signed Food Service Helper: REGINALDO Swan (Massage Therapist) 01/15/17938 MT Last Visit MT Received On 01/15/17 MT Therapy Visit Not available (Sleeping) Carlos Moses ARNP - 01/15/2017 3:26 AM PDTFormatting of this note might be different from th e original. Progress Notes by BRI Hoff at 01/15/17325 Author: BRI Hoff Service: Senior Staff Psychologist Author Type: Advanced Registered Nicky se Practitioner Filed: 01/15/17624 Date of Service: 01/15/17325 Status: Signed Food Service Helper: BRI Hoff (Advanced Registered Nurse Practitioner) [facility] Service: Senior Staff Psychologist Progress Note Jose Rafael Walker 66 y.o. Hospital Day: LOS: 8 days Post-Op Day: Day of Surgery Consulting Physicians Treatment Team: Consulting Physician: Mendez Morrison MD Consulting Physician: Jeovany Jennings MD Admitting Provider: DO FRANCISCA Booth Patient Summary: From Dr Dumont's H&P: The patient is a 66 y.o. male with significant past medical history of ankylosing spondylit is, diabetes type II, deep vein thrombosis, iron deficiency anemia, testicular hypofunction, obesity, hypertension, dyslipidemia, abdomen disorder, transient ischemic attack, non ambul atory ankylosing spondylitis, who presents to transfer from [facility] with a C7 fracture, left maxillary sinus fracture, thyroid mass and syncope. Main complaints at the [facility] facility were left sided face swelling, neck pain, confusion and difficulty remembe ring anything. Per history, patient woke up in a chair, went into the bathroom and found thi ngs in disarray. Granddaughter was then notified by neighbors that they heard a crashing berta nd earlier around 1:30. During the day patient had being a but was in the his usual state of health, came home and went to sleep on his recliner. He cannot remember anything th at happened, next thing that he was clear in his mind was his granddaughter asking questions . Patient denies any chest pain, shortness of breath, headache, dizziness, confusion, fever, chills or illness prior to his syncopal episode/ amnestic event. Reports chronic right shou lder pain. Reports neck pain with movement of his legs or any part of his body. He denies any dysphagi a. ED findings: C7 fracture, leukocytosis, hypokalemia, thyroid mass, left maxillary sinus fra cture [facility] ED treatment: Dilaudid, morphine, cyclobenzaprine From Dr Saravia's most recent progress note: 66-year-old gentleman with past medical history of ankylosing spondylitis, diabetes mellitu s type II on insulin, history of deep vein thrombosis, iron deficiency anemia, hypertension hyperlipidemia history of transient ischemic attack who had a fall in his bathroom and was t aken to the hospital with neck pain found to have C7 fracture, left maxillary sinus fracture , enlarged left thyroid lobe suggesting goiter a large nodule and patient does not recall th e circumstances of all though he admitted that he takes morphine which might have makes him loopy and had a fall because affect. Patient underwent C3-C4, 3-5, 5-6, 6-7, C7-T1, T1-T2 posterior pedicle L mass lesion by Dr. Rivera on 09 january and postoperatively patient was intubated for airways protection and transferred to ICU and was transferred back to the floor on 11 january. Patient had a syncope workup including echocardiogram which showed normal ejection fraction ,no significant valvular abnormalities and CT neck was negative for any stenosis, aneurysm or dissection ICU Timeline: 01/12: Admitted to ICU after placement of Lumbar drain by Neurosurgery due to CSF leak 01/13: Lumbar drain remains in place with hourly drainage of 15mls of CSF 01/14: Lumbar drain in place. Working with PT daily Events Overnight: No significant issues overnight; continues to have occasional heada ches. Lumbar drain remains in place with hourly drainage as per neurosurgery. SCHEDULED MEDICATIONS allopurinol 100 mg Oral Daily bisacodyl 10 mg Rectal Daily calcium carbonate-vitamin D 1 tablet Oral BID WC cyclobenzaprine 10 mg Oral TID heparin (porcine) 5000 unit/0.5mL 5,000 Units Subcutaneous 3 times per day hydrochlorothiazide 25 mg Oral Daily insulin detemir 30 Units Subcutaneous BID insulin lispro (human) 0-10 Units Subcutaneous TID AC insulin lispro (human) 0-5 Units Subcutaneous Nightly insulin lispro (human) 6 Units Subcutaneous TID AC levothyroxine 50 mcg Oral QAM AC lisinopril 10 mg Oral Daily morphine 60 mg Oral 2 times per day pantoprazole 40 mg Oral QAM AC sodium chloride 1 g Oral TID WC sodium phosphate 45 mmol Intravenous Once zinc sulfate 220 mg Oral Daily CONTINUOUS INFUSIONS dextrose dextrose OBJECTIVE VITAL SIGNS Temp: [97.9 F (36.6 C)-98.2 F (36.8 C)] 97.9 F (36.6 C) Heart Rate: [74-117] 82 Resp: [10-22] 10 BP: (99-172)/(53-80) 150/71 mmHg Intake/Output Summary (Last 24 hours) at 01/15/17 0617 Last data filed at 01/15/17 0424 Gross per 24 hour Intake 4000 ml Output 1253 ml Net 2747 ml EXAM GEN: awake, alert, oriented x3, appears comfortable at this time NEURO: PERRLA, EOMI, no facial asymmetry, moves all extremities well GCS: 15 HEENT: sclerae clear, nonicteric, oral mmm, pink, no exudates NECK: supple, trachea midline, C Collar in place CV: RRR, S1/S2, no murmur, rub or gallop, peripheral pulses palpable, cap refill brisk LUNGS: clear b/l, no wheezing, rales or rhonchi, symmetric chest expansion, even/unlabored respirations ABD: soft, nondistended, nontender to palpation, no masses, no hepatosplenomegaly EXTR: 1+ BLE edema, no clubbing or cyanosis SKIN: warm, dry, no rash or mottling; no e/o skin breakdown over the occiput, scapulae, elb ows, sacrum or heels. Surgical incisions dressed LINES/TUBES: PIV X 2, Lumbar drain with clear CSF in collection bag DATA Recent Labs Lab 01/15/1741201/14/1735701/13/1741301/11/1740601/09/17 1825 WBC 18.91* 15.45* 16.48* < > 25.36* < > 18.34* RBC 4.90 4.53 4.46 < > 3.94* < > 4.17* HGB 14.5 13.3 13.0* < > 11.3* < > 12.3* HCT 42.3 38.9* 38.5* < > 33.5* < > 35.6* MCV 86.3 85.7 86.3 < > 85.2 < > 85.4 MCH 29.5 29.3 29.2 < > 28.7 < > 29.6 MCHC 34.2 34.2 33.8 < > 33.7 < > 34.7 RDW 43.8 43.3 44.6 < > 43.3 < > 43.3 PLT 314 287 288 < > 222 < > 219 MPV 7.7 8.0 8.3 < > 8.1 < > 7.5 BANDSABS 0.57* 0.62* -- -- 1.78* < > -- NEUTROABS -- -- -- -- -- -- 17.49* LYMPHSABS -- -- -- -- -- -- 0.53* MONOSABS -- -- -- -- -- -- 0.28 BASOSABS -- -- -- -- -- -- 0.03 EOSABS -- -- -- -- -- -- 0.01 MORPH RBC AND PLT MORPHOLOGY APPEAR NORMAL RBC AND PLT MORPHOLOGY APPEAR NORMAL RBC AND PLT MORPHOLOGY APPEAR NORMAL < > RBC AND PLT MORPHOLOGY APPEAR NORMAL < > RBC AND PLT MORPHOL OGY APPEAR NORMAL < > = values in this interval not displayed. Recent Labs Lab 01/15/1741201/14/1735701/13/1741301/09/17 1825 NA 128* 130* 133* < > 138 K 4.1 3.8 4.2 < > 5.0* CL 86* 91* 93* < > 105 CO2 32 30 31 < > 26 ANIONGAP 14 13 13 < > 11 GLUF 209* 152* 127* < > 270* BUN 31* 18 23 < > 15 CREATININE 1.2 0.9 1.0 < > 0.96 BCR 26 20 23 < > 16 CA 10.5 8.8 9.1 < > 7.1* ALB -- -- -- -- 2.7* GLOB -- -- -- -- 3.2 AG -- -- -- -- 0.8* PROT -- -- -- -- 5.9* BILITOT -- -- -- -- 1.1 ALT -- -- -- -- 42 AST -- -- -- -- 43 EGFR >60 >60 >60 < > >60 PHOS 5.5* 3.6 4.3 < > 3.6 MG 2.1 1.9 2.0 < > 2.2 < > = values in this interval not displayed. Recent Labs Lab 01/15/17 0413 01/14/17 0358 01/13/17 0414 INR 1.1 1.1 1.1 IMAGING Cta Head Neck 01/09/2017 1. Right T1 posterior elements screw extends into the right T1-T2 neural forame n. 2. Small tentorial subdural hematoma bilaterally. 3. Probable postoperative pneumocepha lidia, as above. 4. No evidence of hemodynamically significant arterial stenosis in the neck or head. 5. C6-C7 fracture, as above, with intact fusion from C3 to T2, in this patient wi th evidence of ankylosing spondylitis. Electronically signed by Arthur Rodriguez MD on 2016 6:49 PM X-ray Shoulder Right Complete 2+v 01/07/2017 FINDINGS/ IMPRESSION: 1. No acute fracture or dislocation. 2. 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 3. Osteopenia. Electronicall y signed by Cierra López on 01/07/2017 1:49 PM X-ray Knee Limited Left 01/07/2017 No acute fracture or dislocation. No bone, joint or soft tissue abnormality. Kristy ctronically signed by Omkar Lopes MD on 01/07/2017 6:58 AM X-ray Knee Limited Right 01/07/2017 No acute fracture or dislocation. No bone, joint or soft tissue abnormality. Kristy ctronically signed by Omkar Lopes MD on 01/07/2017 6:57 AM Cta Neck With Iv Contrast 01/07/2017 1. No evidence of significant hemodynamic stenosis, aneurysm, or dissection inv olving the carotid arteries in the neck. 2. Depressed fracture of the anterior wall of the left maxillary sinus with overlying soft tissue swelling and emphysema. Electronically malachi d by Raf Donnelly on 01/07/2017 11:[address] Cervical Spine Without Contrast 01/12/2017 1. Previously seen surgical drain has been removed. 2. Right-sided pedicle scr ew at C7 traverses the superior margin of the C7-T1 neural foramen and could affect the exit ing right C8 nerve root. Right-sided pedicle screw at T1 traverses the T1-2 neural foramen centrally and may be compressing the exiting right T1 nerve root. These findings are unchan ged from the previous exam. 3. All other transpedicular screws are in satisfactory position . 4. Enlarged left thyroid lobe suggesting goiter or large nodule. 5. Atrophy of the right submandibular gland with a 6 mm sialolith seen within the gland. Mri Brain Without Contrast 01/10/2017 Intraventricular and subarachnoid gas, the appearance is similar to the prior CT . No evidence of intracranial hemorrhage or recent infarct. RADIA Electronically signed by Artemio Riddle MD on Jan 10 2017 12:26AM Referring Provider Line: [phone] ID: [id number] Mri Cervical Spine Without Contrast 01/10/2017 Posterior instrumentation from C3-T2. Interval widening of the C6-C7 disk space, this is at the level of fracture in this patient with ankylosing spondylitis. Examination s lightly limited by the implanted hardware, however, the central canal is patent throughout. No evidence of intraspinal hematoma. Region of T2 signal prolongation and mild swelling with in the right cervical cord centered at the C3-C4 level. Finding is new when compared to the prior MR and is consistent with recent injury. RADIA The above findings were discussed with Dr. Parikh by Dr. Artemio Riddle at 00:42 hrs on 01/10/17. Electronically signed by Artemio Riddle MD on Jan 10 2017 12:50AM Referring Provider Line: [phone] ID: [id number] Mri C-spine Without Contrast 01/07/2017 Left thyroid mass measures up to 3.8 cm. Consider correlation with thyroid ultra sound. Changes of ankylosing spondylitis throughout the cervical and upper thoracic spine. T here is a small amount of prevertebral soft tissue edema. 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 T2 signal prolongation within the disk s pace at C6-C7. Findings represent nondisplaced fracture through the ankylosed spine at this level. RADIA Electronically signed by Artemio Riddle MD on Jan 07 2017 1:18AM Referring Prov ider Line: [phone] ID: [id number] Xr Chest 1 View 01/09/2017 1. Status post intubation and nasogastric tube placement, as above. 2. Increas ing bilateral basilar subsegmental atelectasis. 3. Status post spine fusion, with hardware partially visualized. Ct Facial Bones 01/07/2017 1. Acute displaced fracture of the anterolateral wall of the left maxillary sinu s (series 4 image 30, series 3 image 70). The fracture fragment is displaced superomedially and posteriorly into the left maxillary sinus. 2. Given the left maxillary sinus wall fractu re, there is now resulting soft tissue emphysema within the left submandibular space, left m asticator space, and left periorbital soft tissues. 3. 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 No evidence of acute fracture or malalignment involving the spine. However, given the ankylosed spine MRI of the spine is recommended, as clinically indicated, to further evalua te. RADIA Electronically signed by Divya Prieto MD on Jan 07 2017 1:30AM Referring Pro vider Line: [phone] ID: [id number] Echo Cardiac Adult Limited 01/07/2017 1. The left ventricle is normal in size, mild concentric hypertrophy and hyperdy namic systolic function EF >70%. 2. The right ventricle is moderately enlarged with normal s ystolic function. 3. The aortic valve is mildly calcified with mild aortic regurgitation. 4. There is no pericardial effusion. X-ray C-arm Fluoro Over 1 Hour 01/09/2017 1. Procedural films, as above. Ct Thoracic Lumbar Without Contrast 01/07/2017 1. Diffuse ankylosis of the spine. No evidence of acute fracture or traumatic s ubluxation. If there is continued concern for acute fracture or ligamentous injury, consider further evaluation with MRI. 2. Minimal compression of the superior endplate of L1 which i s age indeterminate. LEM LIST Principal Problem: Closed nondisplaced fracture of seventh cervical vertebra (HCC) Active Problems: Maxillary fracture, left side, initial encounter for open fracture Antiphospholipid syndrome (HCC) Controlled type 2 diabetes mellitus with hyperglycemia (HCC) Syncope and collapse Thyroid mass CSF leak Non morbid obesity Resolved Problems: * No resolved hospital problems. * ASSESSMENT & PLAN NEURO: CSF Leak: Lumbar drain placed by Neurosurgery 01/12. Orders to drain 15mls of CSF Q 1 h our as per NS and keep HOB >30 degrees. Okay to ambulate with drain off as per NS. Monitor neuro status closely Cervical Fracture: S/P fusion C3 to T2. Remains in C collar. Post surgical management by NS CAM ICU each shift CV: Hypertension: Currently treated with home dose lisinopril; monitor closely PULM: No acute pulmonary issues; monitor closely GI/NUTRITION: Diabetic Diet; System Software Programmer following RENAL/LYTES: Renal function appears to be trending up and Sodium trending down; will give one liter o f IVF at this time. Monitor renal function closely Avoid nephrotoxins Monitor electrolytes and replace as per ICU protocol ID: Afebrile with WBC slightly up today and decreasing Bandemia. No ABX treatment at this t yeison; monitor closely HEME: H/H improved; monitor CBCs and Coags closely Antiphospholipid Syndrome: Chronic anticoagulation to resume as per Neurosurgery and He matology. 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 Resume chronic anticoagulation as per José Miguel rosurgery VAP bundle: Not Indicated. Disposition: ICU care for monitoring/hourly drainage of CSF from lumbar drain Code Status: Full Code *Please bill 40 minutes of critical care time spent evaluating the patient, reviewing the d seng and formulating a plan exclusive of all other procedures. BRI Hoff 01/15/2017 Arnulfo Camara MD - 01/14/2017 8:02 PM PDTFormatting of this note might be different from the o riginal. Progress Notes by Mendez Morrison MD at 01/14/172001 Author: Mendez Morrison MD Service: Neurosurgery Author Type: Physician Filed: 01/15/17 1151 Date of Service: 01/14/172001 Status: Signed Food Service Helper: Mendez Morrison MD (Physician) [facility] Service: Neurosurgery Progress Note Hospital Day: LOS: 7 days Post-Op Day: 2 Days Post-Op Surgery/Procedure: Procedure(s) (LRB): LUMBAR - DRAINAGE (N/A) SUBJECTIVE Patient Summary: Had an Hour of overdrainage with headaches. CT head negative Events Overnight: No other acute events Scheduled Medications allopurinol 100 mg Oral Daily bisacodyl 10 mg Rectal Daily calcium carbonate-vitamin D 1 tablet Oral BID WC cyclobenzaprine 10 mg Oral TID heparin (porcine) 5000 unit/0.5mL 5,000 Units Subcutaneous 3 times per day hydrochlorothiazide 25 mg Oral Daily insulin detemir 30 Units Subcutaneous BID insulin lispro (human) 0-10 Units Subcutaneous TID AC insulin lispro (human) 0-5 Units Subcutaneous Nightly insulin lispro (human) 6 Units Subcutaneous TID AC levothyroxine 50 mcg Oral QAM AC lisinopril 10 mg Oral Daily morphine 60 mg Oral 2 times per day pantoprazole 40 mg Oral QAM AC sodium chloride 1 g Oral TID WC sodium phosphate 45 mmol Intravenous Once zinc sulfate 220 mg Oral Daily Continuous Infusions dextrose dextrose PRN Medications acetaminophen OR acetaminophen, jsmhpuwoug-dfqlvunefsmid-otqapunz, carboxymethylcellulo se, dextrose, dextrose, dextrose, dextrose, docusate sodium OR docusate, fentaNYL OR fentaNYL, glucagon, glucagon, lactulose, magnesium sulfate OR magnesium sulfate OR magnesium sulfate, morphine, nystatin, nystatin, ondansetron OR ondansetron, petrolatum, phosphorus OR sodium phosphate IVPB 20 mmol OR sodium phosphate IVPB 45 mmol, polye thylene glycol, potassium OR potassium OR potassium OR potassium chloride OR potassium chloride OR potassium chloride OBJECTIVE Vital Signs: BP 110/54 mmHg | Pulse 74 | Temp(Src) 98 F (36.7 C) (Oral) | Resp 10 | Ht 1.778 m (5' 1 0") | Wt 121.3 kg (267 lb 6.7 oz) | BMI 38.37 kg/m2 | SpO2 98% Ox3 craft demonstrator intact 5/5 x4 Sensation intact No radicular pain Wound CDI DATA Recent Labs Lab 01/14/17 0358 01/13/17 0414 01/12/17 0558 WBC 15.45* 16.48* 20.42* RBC 4.53 4.46 3.89* HGB 13.3 13.0* 11.2* HCT 38.9* 38.5* 33.4* MCV 85.7 86.3 85.7 MCH 29.3 29.2 28.7 MCHC 34.2 33.8 33.5 RDW 43.3 44.6 44.6 PLT 287 288 254 MPV 8.0 8.3 8.1 DIFFTYPE MANUAL MANUAL MANUAL Results Procedure Component Value Units Date/Time POCT glucose [[id number]] (Abnormal) Collected: 01/14/17 1650 GLUCOSE,POC SCREEN 194 (H) mg/dL Updated: 01/14/17 1705 POCT glucose [[id number]] (Abnormal) Collected: 01/14/17 1158 GLUCOSE,POC SCREEN 227 (H) mg/dL Updated: 01/14/17 1205 POCT glucose [[id number]] (Abnormal) Collected: 01/14/17 0553 GLUCOSE,POC SCREEN 168 (H) mg/dL Updated: 01/14/17 0607 CBC w/auto diff (reflex to manual) [[id number]] (Abnormal) Collected: 01/14/17357 Specimen Information: Blood Updated: 01/14/17 0532 WBC 15.45 (H) K/uL RBC 4.53 M/uL HGB 13.3 g/dL HCT 38.9 (L) % MCV 85.7 fl MCH 29.3 pg MCHC 34.2 g/dL RDW SD 43.3 fl PLT 287 K/uL MPV 8.0 fl DIFF TYPE MANUAL Neutrophils Manual 70 % Bands 4 % Lymphocytes Manual 12 % Monocytes Manual 13 % Eosinophils Manual 1 % Neutrophils Absolute 10.82 (H) K/uL Bands Manual 0.62 (H) K/uL Lymphocytes Absolute 1.85 K/uL Monocytes Absolute 2.01 (H) K/uL Eosinophils Absolute 0.15 K/uL MORPHOLOGY RBC AND PLT MORPHOLOGY APPEAR NORMAL Basic metabolic panel [[id number]] (Abnormal) Collected: 01/14/17357 Specimen Information: Blood Updated: 01/14/17 0510 SODIUM 130 (L) mmol/L POTASSIUM 3.8 mmol/L CHLORIDE 91 (L) mmol/L CO2 30 mmol/L ANION GAP AGAP 13 mmol/L GLUCOSE 152 (H) mg/dL BUN 18 mg/dL CREATININE 0.9 mg/dL BUN/CREAT 20 CALCIUM 8.8 mg/dL EGFR >60 mL/min/1.73m2 Magnesium [[id number]] Collected: 01/14/17357 Specimen Information: Blood Updated: 01/14/17 0510 MAGNESIUM 1.9 mg/dL Phosphorus [[id number]] Collected: 01/14/17357 Specimen Information: Blood Updated: 01/14/17 0510 PHOSPHORUS 3.6 mg/dL Protime-INR [[id number]] Collected: 01/14/17357 Specimen Information: Blood Updated: 01/14/17 0429 INR 1.1 POCT glucose [[id number]] (Abnormal) Collected: 01/14/17 0146 GLUCOSE,POC SCREEN 169 (H) mg/dL Updated: 01/14/17 0152 POCT glucose [[id number]] (Abnormal) Collected: 01/13/17 2137 GLUCOSE,POC SCREEN 153 (H) mg/dL Updated: 01/13/17 2144 POCT glucose [[id number]] (Abnormal) Collected: 01/13/17 1657 GLUCOSE,POC SCREEN 183 (H) mg/dL Updated: 01/13/17 170 POCT glucose [[id number]] (Abnormal) Collected: 01/13/17 1459 GLUCOSE,POC SCREEN 188 (H) mg/dL Updated: 01/13/171704 POCT glucose [[id number]] (Abnormal) Collected: 01/13/17 0928 GLUCOSE,POC SCREEN 141 (H) mg/dL Updated: 01/13/1730 CBC w/auto diff (reflex to manual) [[id number]] (Abnormal) Collected: 01/13/17413 Specimen Information: Blood Updated: 01/13/17529 WBC 16.48 (H) K/uL RBC 4.46 M/uL HGB 13.0 (L) g/dL HCT 38.5 (L) % MCV 86.3 fl MCH 29.2 pg MCHC 33.8 g/dL RDW SD 44.6 fl PLT 288 K/uL MPV 8.3 fl DIFF TYPE MANUAL Neutrophils Manual 76 % Lymphocytes Manual 19 % Monocytes Manual 5 % Neutrophils Absolute 12.53 (H) K/uL Lymphocytes Absolute 3.13 K/uL Monocytes Absolute 0.82 (H) K/uL MORPHOLOGY RBC AND PLT MORPHOLOGY APPEAR NORMAL Basic metabolic panel [[id number]] (Abnormal) Collected: 01/13/17413 Specimen Information: Blood Updated: 01/13/17504 SODIUM 133 (L) mmol/L POTASSIUM 4.2 mmol/L CHLORIDE 93 (L) mmol/L CO2 31 mmol/L ANION GAP AGAP 13 mmol/L GLUCOSE 127 (H) mg/dL BUN 23 mg/dL CREATININE 1.0 mg/dL BUN/CREAT 23 CALCIUM 9.1 mg/dL EGFR >60 mL/min/1.73m2 Magnesium [[id number]] Collected: 01/13/17413 Specimen Information: Blood Updated: 01/13/17504 MAGNESIUM 2.0 mg/dL Phosphorus [[id number]] Collected: 01/13/17413 Specimen Information: Blood Updated: 01/13/17504 PHOSPHORUS 4.3 mg/dL Protime-INR [[id number]] Collected: 01/13/17413 Specimen Information: Blood Updated: 05/24/17 0441 INR 1.1 POCT glucose [[id number]] (Abnormal) Collected: 01/13/17 0220 GLUCOSE,POC SCREEN 136 (H) mg/dL Updated: 01/13/17223 Type and screen [[id number]] Collected: 01/09/17442 Specimen Information: Blood Updated: 01/12/172325 ABO/RH(D) A POSITIVE ANTIBODY SCREEN NEGATIVE ARM BAND NUMBER [id number] UNIT NUMBER [id number] BLOOD COMPONENT TYPE LEUKODEPLETED PC UNIT DIVISION 00 STATUS OF UNIT ISSUED,FINAL TRANSFUSION STATUS OK TO TRANSFUSE CROSSMATCH RESULT COMPATIBLE UNIT NUMBER [id number] BLOOD COMPONENT TYPE LEUKODEPLETED PC UNIT DIVISION 00 STATUS OF UNIT ISSUED,FINAL TRANSFUSION STATUS OK TO TRANSFUSE CROSSMATCH RESULT COMPATIBLE UNIT NUMBER [id number] BLOOD COMPONENT TYPE LEUKODEPLETED PC UNIT DIVISION 00 STATUS OF UNIT REL FROM ALLOC TRANSFUSION STATUS OK TO TRANSFUSE CROSSMATCH RESULT -- Result: COMPATIBLE Testing performed at [address] [address] UNIT NUMBER [id number] BLOOD COMPONENT TYPE LEUKODEPLETED PC UNIT DIVISION 00 STATUS OF UNIT REL FROM ALLOC TRANSFUSION STATUS OK TO TRANSFUSE CROSSMATCH RESULT COMPATIBLE POCT glucose [[id number]] (Abnormal) Collected: 01/12/17 1643 GLUCOSE,POC SCREEN 178 (H) mg/dL Updated: 01/12/172321 POCT glucose [[id number]] (Abnormal) Collected: 01/12/17 1214 GLUCOSE,POC SCREEN 157 (H) mg/dL Updated: 01/12/17 1216 Basic metabolic panel [[id number]] (Abnormal) Collected: 01/12/17557 Specimen Information: Blood Updated: 01/12/17718 SODIUM 135 mmol/L POTASSIUM 4.7 mmol/L CHLORIDE 97 (L) mmol/L CO2 31 mmol/L ANION GAP AGAP 12 mmol/L GLUCOSE 230 (H) mg/dL BUN 19 mg/dL CREATININE 0.8 mg/dL BUN/CREAT 24 CALCIUM 9.7 mg/dL EGFR >60 mL/min/1.73m2 Magnesium [[id number]] Collected: 01/12/17557 Specimen Information: Blood Updated: 01/12/17718 MAGNESIUM 2.3 mg/dL Phosphorus [[id number]] Collected: 01/12/17557 Specimen Information: Blood Updated: 01/12/17 0719 PHOSPHORUS 2.9 mg/dL CBC w/auto diff (reflex to manual) [[id number]] (Abnormal) Collected: 01/12/17557 Specimen Information: Blood Updated: 01/12/17 0716 WBC 20.42 (H) K/uL RBC 3.89 (L) M/uL HGB 11.2 (L) g/dL HCT 33.4 (L) % MCV 85.7 fl MCH 28.7 pg MCHC 33.5 g/dL RDW SD 44.6 fl PLT 254 K/uL MPV 8.1 fl DIFF TYPE MANUAL Neutrophils Manual 90 % Lymphocytes Manual 6 % Monocytes Manual 4 % Neutrophils Absolute 18.37 (H) K/uL Lymphocytes Absolute 1.23 K/uL Monocytes Absolute 0.82 (H) K/uL MORPHOLOGY RBC AND PLT MORPHOLOGY APPEAR NORMAL Protime-INR [[id number]] Collected: 01/12/17557 Specimen Information: Blood Updated: 01/12/1740 INR 1.1 POCT glucose [[id number]] (Abnormal) Collected: 01/12/17 0539 GLUCOSE,POC SCREEN 287 (H) mg/dL Updated: 01/12/17 0554 POCT glucose [[id number]] (Abnormal) Collected: 01/11/171999 GLUCOSE,POC SCREEN 161 (H) mg/dL Updated: 01/11/172005 Recent Labs Lab 01/14/17 0358 01/13/17 0414 01/12/1758 INR 1.1 1.1 1.1 Cta Head Neck 01/09/2017 1. Right T1 posterior elements screw extends into the right T1-T2 neural forame n. 2. Small tentorial subdural hematoma bilaterally. 3. Probable postoperative pneumocepha lidia, as above. 4. No evidence of hemodynamically significant arterial stenosis in the neck or head. 5. C6-C7 fracture, as above, with intact fusion from C3 to T2, in this patient wi th evidence of ankylosing spondylitis. Electronically signed by Arthur Rodriguez MD on 2016 6:[address] Head Without Contrast 01/14/2017 1. No acute intracranial findings. 2. Decreased postoperative pneumocephalus c ompared with 01/09/2017. 3. No definite evidence of over-shunting. Ct Cervical Spine Without Contrast 01/12/2017 1. Previously seen surgical drain has been removed. 2. Right-sided pedicle scr ew at C7 traverses the superior margin of the C7-T1 neural foramen and could affect the exit ing right C8 nerve root. Right-sided pedicle screw at T1 traverses the T1-2 neural foramen centrally and may be compressing the exiting right T1 nerve root. These findings are unchan ged from the previous exam. 3. All other transpedicular screws are in satisfactory position . 4. Enlarged left thyroid lobe suggesting goiter or large nodule. 5. Atrophy of the right submandibular gland with a 6 mm sialolith seen within the gland. Mri Brain Without Contrast 01/10/2017 Intraventricular and subarachnoid gas, the appearance is similar to the prior CT . No evidence of intracranial hemorrhage or recent infarct. RADIA Electronically signed by Artemio Riddle MD on Jan 10 2017 12:26AM Referring Provider Line: [phone] ID: [id number] Mri Cervical Spine Without Contrast 01/10/2017 Posterior instrumentation from C3-T2. Interval widening of the C6-C7 disk space, this is at the level of fracture in this patient with ankylosing spondylitis. Examination s lightly limited by the implanted hardware, however, the central canal is patent throughout. No evidence of intraspinal hematoma. Region of T2 signal prolongation and mild swelling with in the right cervical cord centered at the C3-C4 level. Finding is new when compared to the prior MR and is consistent with recent injury. RADIA The above findings were discussed with Dr. Parikh by Dr. Artemio Riddle at 00:42 hrs on 01/10/17. Electronically signed by Artemio Riddle MD on Jan 10 2017 12:50AM Referring Provider Line: [phone] ID: [id number] Xr Chest 1 View 01/09/2017 1. Status post intubation and nasogastric tube placement, as above. 2. Increas ing bilateral basilar subsegmental atelectasis. 3. Status post spine fusion, with hardware partially visualized. X-ray C-arm Fluoro Over 1 Hour 01/09/2017 1. Procedural films, as above. LEM LIST Principal Problem: Closed nondisplaced fracture of seventh cervical vertebra (HCC) Active Problems: Maxillary fracture, left side, initial encounter for open fracture Antiphospholipid syndrome (HCC) Controlled type 2 diabetes mellitus with hyperglycemia (HCC) Syncope and collapse Thyroid mass CSF leak Non morbid obesity ASSESSMENT & PLAN POD 5 C3-T 2 fusion POD 2 Lumbar drain palcement Wound dry CSF draining at 15cc per hour HOB at 70 Disposition: Unknown Code Status: Full Code Mendez Morrison MD 01/14/2017 8:02 PM onversio n Transaction, Provider Unknown - 01/14/2017 4:32 PM PDTFormatting of this note might be di fferent from the original. Therapy Progress Note by REGINALDO Swan at 01/14/17 1632 Author: REGINALDO Swan Service: (none) Author Type: Massage Therapist Filed: 01/14/17 1632 Date of Service: 01/14/17 1632 Status: Signed Food Service Helper: REGINALDO Swan (Massage Therapist) 01/14/17 1631 Massage Therapy Interventions Locations Back;Neck;Shoulder Massage Therapy Technique Effleurage;Petrissage;Danish massage Response to treatment Decreased muscle tension onver jacki Transaction, Provider Unknown - 01/14/2017 10:56 AM PDT Progress Notes by Serena Daugherty RD, CD at 01/14/17 1056 Author: Serena Daugherty RD, CD Service: (none) Author Type: Registered Dietitian Filed: 01/14/17 1057 Date of Service: 01/14/17 1056 Status: Signed Food Service Helper: Serena Daugherty RD, CD (Registered Dietitian) 01/14/17 1040 Subjective Timepoint Admit (LOS) Pt c/o Pt was admitted with C7 fx, left maxillary sinus fx, thyroid mass, and s/p syncopal episode. POD #5 s/p C3-T2 fusion and POD #2 s/p lumbar drain insertion and resuturing of cer vicothoracic wound. Pt is wearing a C-collar. Reports that his appetite has been decreased s aurelia admit. Diet Experience Self-selected diet(s) followed Pt reports that he had been eating very well prior to admit. Typically likes to eat small, frequent meal/snacks throughout the day. Pt states that has h ad diabetic diet education in the past and feels that he understands it well. Pt limits swee ts. Takes oral DM medications but also insulin (short- and long-acting) on occasion. Pt has a BG meter and checks intermittently. Occasionally has very high BG levels and rarely lows i n the 60s at which point he feels symptomatic. Pt keeps juice and fruit readily available. Fluid / Beverage Intake Oral Fluids Amount Drinking liquids ad farzana. Per RN, pt had been drinking about 4 L per day - mainly coffee and water. Now restricted to 3 L free water per day. Liquid Meal Replacement or Supplement Pt has been drinking Ensure daily which granddaughter brought in. Food Intake Amount of Food Pt estimates that he has been eating a little less than half of his meals on average. Per nursing documentation, pt has been eating 50-100% of meals recorded, but very few meals have been recorded. Type of Food / Meals Diabetic maintenance diet. Meal / Snack Pattern Pt has been eating 3 meals/day. States that he prefers small, frequent meals. Discussed that this was an option and that he may order as desired. Menu and phone p laced within reach. Soup and fresh fruit were ordered for pt after visit per his request. Micronutrient Intake Vitamin Intake D Mineral / Element Intake Sodium;Chloride;Zinc;Calcium Nutrition-Focused Physical Findings Overall Appearance Appears obese, well-nourished, although reported to have generalized dep endent edema. Digestive System (Mouth to Rectum) Per pt, abdomen is normally slightly distended and firm due to an incisional hernia. Pt c/o occasional hiccups over the past day. Anthropometrics Weight change Based on wt obtained yesterday, wt is up 9.7 kg from admit wt. I/Os indicate that pt is approximately 2.2 L fluid negative. Unsure if wt change is bedscale discrepancy o r fluid retention. Pt is currently on diuretics. Will continue to monitor trends and adjust nutrition goals as needed. Pt states that his wt has fluctuated about 10# over the past 2 mo nths but has been stable overall. Biochemical data, medical tests, and procedures reviewed Biochemical data, medical tests, and procedures reviewed BG has been controlled in the 100s , Levemir and Humalog insulin ordered. Na 130 (L) - free water restriction instituted this A M. BUN and Cr are WNL. Estimated Energy Needs Total Energy Estimated Needs [id number] kcal/day Method for Estimating Needs 25-30 kcal/kg adjusted wt (84.5 kg) Estimated Protein Needs Total Protein Estimated Needs 101-127 g protein/day Method for Estimating Needs 1.2-1.5 g protein/kg adjusted wt (84.5 kg) Recommendations Recommended energy needs Continue diabetic maintenance diet as ordered. Encourage PO intake . Small, frequent meals/snacks as desired. Will arrange for chocolate Boost Glucose Control to be sent TID (at snack times) to help optimize kcal/protein intake until appetite improves . Further nutrition recs to follow as needed. Nutritional Risk Nutritional risk Moderate Follow up date 01/19/17 Serena Daugherty, LUIS ALFREDO, CD, CNSC 01/14/2017 onver jacki Hines Provider Unknown - 01/14/2017 10:33 AM PDT Therapy Progress Note by Brook Beasley PT at 01/14/17 1033 Author: Brook Beasley PT Service: (none) Author Type: Physical Therapist Filed: 01/14/17 5902 Date of Service: 01/14/17 1033 Status: Signed Food Service Helper: Brook Beasley PT (Physical Therapist) 01/14/17 1033 PT Last Visit PT Received On 01/14/17 Reason for Treatment Spinal surgery (+ LUMBAR - DRAINAGE ) Requires PT Follow Up Yes Follow up PT Only? No Assistance Required 1 person Precautions Spinal Precautions Cervical collar on when upright Other Precautions HOB elevated to 60-70 deg at all times, Lumbar drain, Fall risk Other Comments Comments Pt. was supine in bed when PT arrived and was agreeable to therapy. Pt reported 8/ 10 pain in his neck and R arm and wrist. Pt also reported 9/10 PÉREZ pain and some dizzyness a t rest. It required mod-maxA x 1 to transfer pt from supine to sit. dizzyness increased wit h pt. being EOB for ~ 2mins. Pt was able to stand with Joe x 1. Pt ambulated 200 ft w/ FWW with SBA. Pt's dizzyness decreased throughout the tx. We returned back to his room and he reported that he needed to use the bathroom. Pt was left on the toilet with the call cord w ith him and RN was notified. VS were stable throughout tx. Cognition Overall Cognitive Status WFL Orientation Level Oriented Bed Mobility Supine to Sit Mod assist (BLEs OOB or trunk to upright);Max assist (BLEs OOB & trunk to upr ight);x 1 person Transfers Sit to/from Stand Minimal assist (steadying/contact guard);Moderate assist (to arise OR low er);x 1 person Bed to/from Chair Standby assist;Minimal assist (steadying/contact guard);x 1 person Mobility Ambulation Assistance Standby assist;Minimal assist Maximal Ambulation Distance (feet) 100 Total Ambulation Distance (feet) 200 Distance limited by? Patient's ability;Therapist/staff discretion Pattern Decreased khalif;Right swing foot doesn't pass stance foot;Left swing foot doesn't pass stance foot Assistive Device Walker front wheeled Activity Tolerance Activity Tolerance Patient limited by fatigue;Patient limited by pain Nurse Made Aware Yes, RN Nancie Recommendation Recommendations Other (comment) Equipment Recommended (TBD) Barriers to Discharge Physical Deficits Impacting Functional Harding;Self-care Deficit s Impacting Functional Harding Recommendation Comments Pt reports that his grandchildren will move in with him to give him home assistance. If this is feasible pt. should be able to return to home with initial 24/ 7 assistance. If not pt. would benefit from SNF. Physical Therapy / In Store Demonstrator Student educationally participated in the [facility] of care under the direct supervision of the licensed therapist. The patient was in agr eement with student's role in care. Carlos Moses ARNP - 01/14/2017 3:02 AM PDTFormatting of this note might be different from john rand original. Progress Notes by BRI Hoff at 01/14/17301 Author: BRI Hoff Service: Senior Staff Psychologist Author Type: Advanced Registered Nicky se Practitioner Filed: 01/14/17600 Date of Service: 01/14/17301 Status: Signed Food Service Helper: BRI Hoff (Advanced Registered Nurse Practitioner) [facility] Service: Senior Staff Psychologist Progress Note Jose Rafael Walker 66 y.o. Hospital Day: LOS: 7 days Post-Op Day: Day of Surgery Consulting Physicians Treatment Team: Consulting Physician: Mendez Morrison MD Consulting Physician: Jeovany Jennings MD Admitting Provider: Moni Dumont DO SUBJECTIVE Patient Summary: From Dr Dumont's H&P: The patient is a 66 y.o. male with significant past medical history of ankylosing spondylit is, diabetes type II, deep vein thrombosis, iron deficiency anemia, testicular hypofunction, obesity, hypertension, dyslipidemia, abdomen disorder, transient ischemic attack, non ambul atory ankylosing spondylitis, who presents to transfer from [facility] with a C7 fracture, left maxillary sinus fracture, thyroid mass and syncope. Main complaints at the [facility] facility were left sided face swelling, neck pain, confusion and difficulty remembe ring anything. Per history, patient woke up in a chair, went into the bathroom and found thi ngs in disarray. Granddaughter was then notified by neighbors that they heard a crashing berta nd earlier around 1:30. During the day patient had being a but was in the his usual state of health, came home and went to sleep on his recliner. He cannot remember anything th at happened, next thing that he was clear in his mind was his granddaughter asking questions . Patient denies any chest pain, shortness of breath, headache, dizziness, confusion, fever, chills or illness prior to his syncopal episode/ amnestic event. Reports chronic right shou lder pain. Reports neck pain with movement of his legs or any part of his body. He denies any dysphagi a. ED findings: C7 fracture, leukocytosis, hypokalemia, thyroid mass, left maxillary sinus fra cture [facility] ED treatment: Dilaudid, morphine, cyclobenzaprine From Dr Saravia's most recent progress note: 66-year-old gentleman with past medical history of ankylosing spondylitis, diabetes mellitu s type II on insulin, history of deep vein thrombosis, iron deficiency anemia, hypertension hyperlipidemia history of transient ischemic attack who had a fall in his bathroom and was t aken to the hospital with neck pain found to have C7 fracture, left maxillary sinus fracture , enlarged left thyroid lobe suggesting goiter a large nodule and patient does not recall th e circumstances of all though he admitted that he takes morphine which might have makes him loopy and had a fall because affect. Patient underwent C3-C4, 3-5, 5-6, 6-7, C7-T1, T1-T2 posterior pedicle L mass lesion by Dr. Rivera on 09 january and postoperatively patient was intubated for airways protection and transferred to ICU and was transferred back to the floor on 11 january. Patient had a syncope workup including echocardiogram which showed normal ejection fraction ,no significant valvular abnormalities and CT neck was negative for any stenosis, aneurysm or dissection ICU Timeline: 01/12: Admitted to ICU after placement of Lumbar drain by Neurosurgery due to CSF leak 01/13: Lumbar drain remains in place with hourly drainage of 15mls of CSF Events Overnight: No significant issues overnight; continues to have occasional heada ches. Lumbar drain remains in place. SCHEDULED MEDICATIONS allopurinol 100 mg Oral Daily bisacodyl 10 mg Rectal Daily calcium carbonate-vitamin D 1 tablet Oral BID WC heparin (porcine) 5000 unit/0.5mL 5,000 Units Subcutaneous 3 times per day hydrochlorothiazide 25 mg Oral Daily insulin detemir 59 Units Subcutaneous BID insulin lispro (human) 6 Units Subcutaneous TID AC insulin lispro (human) 6-18 Units Subcutaneous Q4H levothyroxine 50 mcg Oral QAM AC lisinopril 10 mg Oral Daily morphine 60 mg Oral 2 times per day pantoprazole 40 mg Oral QAM AC sodium chloride 1 g Oral TID WC sodium phosphate 45 mmol Intravenous Once zinc sulfate 220 mg Oral Daily CONTINUOUS INFUSIONS dextrose OBJECTIVE VITAL SIGNS Temp: [97.7 F (36.5 C)-98.8 F (37.1 C)] 97.7 F (36.5 C) Heart Rate: [65-85] 73 Resp: [12-33] 16 BP: (107-154)/(57-67) 128/60 mmHg Intake/Output Summary (Last 24 hours) at 01/14/17 0600 Last data filed at 01/14/17 0536 Gross per 24 hour Intake 1091 ml Output 5085 ml Net -3994 ml EXAM GEN: awake, alert, oriented x3, appears comfortable at this time NEURO: PERRLA, EOMI, no facial asymmetry, moves all extremities well GCS: 15 HEENT: sclerae clear, nonicteric, oral mmm, pink, no exudates NECK: supple, trachea midline, C Collar in place CV: RRR, S1/S2, no murmur, rub or gallop, peripheral pulses palpable, cap refill brisk LUNGS: clear b/l, no wheezing, rales or rhonchi, symmetric chest expansion, even/unlabored respirations ABD: soft, nondistended, nontender to palpation, no masses, no hepatosplenomegaly EXTR: trace BLE edema, no clubbing or cyanosis SKIN: warm, dry, no rash or mottling; no e/o skin breakdown over the occiput, scapulae, elb ows, sacrum or heels. Surgical incisions dressed LINES/TUBES: PIV X 2, Lumbar drain with clear CSF in collection bag DATA Recent Labs Lab 01/14/17 0358 01/13/17 0414 01/12/17 0558 01/11/17 0407 01/10/17 0433 01/09/17 1825 01/07/17 0608 WBC 15.45* 16.48* 20.42* 25.36* 15.91* 18.34* -- 9.71 RBC 4.53 4.46 3.89* 3.94* 3.93* 4.17* -- 5.07 HGB 13.3 13.0* 11.2* 11.3* 11.3* 12.3* < > 14.6 HCT 38.9* 38.5* 33.4* 33.5* 33.7* 35.6* < > 43.1 MCV 85.7 86.3 85.7 85.2 85.8 85.4 -- 85.0 MCH 29.3 29.2 28.7 28.7 28.7 29.6 -- 28.8 MCHC 34.2 33.8 33.5 33.7 33.5 34.7 -- 33.9 RDW 43.3 44.6 44.6 43.3 44.6 43.3 -- 44.2 PLT 287 288 254 222 220 219 -- 243 MPV 8.0 8.3 8.1 8.1 8.1 7.5 -- 7.7 BANDSABS 0.62* -- -- 1.78* 1.11* -- -- -- NEUTROABS -- -- -- -- -- 17.49* -- 7.34 LYMPHSABS -- -- -- -- -- 0.53* -- 1.37 MONOSABS -- -- -- -- -- 0.28 -- 0.78 BASOSABS -- -- -- -- -- 0.03 -- 0.06 EOSABS -- -- -- -- -- 0.01 -- 0.16 MORPH RBC AND PLT MORPHOLOGY APPEAR NORMAL RBC AND PLT MORPHOLOGY APPEAR NORMAL RBC AND PLT MORPHOLOGY APPEAR NORMAL RBC AND PLT MORPHOLOGY APPEAR NORMAL RBC AND PLT MORPHOLOGY APPEAR NORMAL RBC AND PLT MORPHOLOGY APPEAR NORMAL < > -- < > = values in this interval not displayed. Recent Labs Lab 01/14/17 0358 01/13/17 0414 01/12/17 0558 01/09/17 1825 NA 130* 133* 135 < > 138 K 3.8 4.2 4.7 < > 5.0* CL 91* 93* 97* < > 105 CO2 30 31 31 < > 26 ANIONGAP 13 13 12 < > 11 GLUF 152* 127* 230* < > 270* BUN 18 23 19 < > 15 CREATININE 0.9 1.0 0.8 < > 0.96 BCR 20 23 24 < > 16 CA 8.8 9.1 9.7 < > 7.1* ALB -- -- -- -- 2.7* GLOB -- -- -- -- 3.2 AG -- -- -- -- 0.8* PROT -- -- -- -- 5.9* BILITOT -- -- -- -- 1.1 ALT -- -- -- -- 42 AST -- -- -- -- 43 EGFR >60 >60 >60 < > >60 PHOS 3.6 4.3 2.9 < > 3.6 MG 1.9 2.0 2.3 < > 2.2 < > = values in this interval not displayed. Recent Labs Lab 01/14/17 0358 01/13/17 0414 01/12/17 0558 INR 1.1 1.1 1.1 IMAGING Cta Head Neck 01/09/2017 1. Right T1 posterior elements screw extends into the right T1-T2 neural forame n. 2. Small tentorial subdural hematoma bilaterally. 3. Probable postoperative pneumocepha lidia, as above. 4. No evidence of hemodynamically significant arterial stenosis in the neck or head. 5. C6-C7 fracture, as above, with intact fusion from C3 to T2, in this patient wi th evidence of ankylosing spondylitis. Electronically signed by Arthur Rodriguez MD on 2016 6:49 PM X-ray Shoulder Right Complete 2+v 01/07/2017 FINDINGS/ IMPRESSION: 1. No acute fracture or dislocation. 2. 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 3. Osteopenia. Electronicall y signed by Cierra López on 01/07/2017 1:49 PM X-ray Knee Limited Left 01/07/2017 No acute fracture or dislocation. No bone, joint or soft tissue abnormality. Kristy ctronically signed by Omkar Lopes MD on 01/07/2017 6:58 AM X-ray Knee Limited Right 01/07/2017 No acute fracture or dislocation. No bone, joint or soft tissue abnormality. Kristy ctronically signed by Omkar Lopes MD on 01/07/2017 6:57 AM Cta Neck With Iv Contrast 01/07/2017 1. No evidence of significant hemodynamic stenosis, aneurysm, or dissection inv olving the carotid arteries in the neck. 2. Depressed fracture of the anterior wall of the left maxillary sinus with overlying soft tissue swelling and emphysema. Electronically malachi d by Raf Donnelly on 01/07/2017 11:[address] Cervical Spine Without Contrast 01/12/2017 1. Previously seen surgical drain has been removed. 2. Right-sided pedicle scr ew at C7 traverses the superior margin of the C7-T1 neural foramen and could affect the exit ing right C8 nerve root. Right-sided pedicle screw at T1 traverses the T1-2 neural foramen centrally and may be compressing the exiting right T1 nerve root. These findings are unchan ged from the previous exam. 3. All other transpedicular screws are in satisfactory position . 4. Enlarged left thyroid lobe suggesting goiter or large nodule. 5. Atrophy of the right submandibular gland with a 6 mm sialolith seen within the gland. Mri Brain Without Contrast 01/10/2017 Intraventricular and subarachnoid gas, the appearance is similar to the prior CT . No evidence of intracranial hemorrhage or recent infarct. RADIA Electronically signed by Artemio Riddle MD on Jan 10 2017 12:26AM Referring Provider Line: [phone] ID: [id number] Mri Cervical Spine Without Contrast 01/10/2017 Posterior instrumentation from C3-T2. Interval widening of the C6-C7 disk space, this is at the level of fracture in this patient with ankylosing spondylitis. Examination s lightly limited by the implanted hardware, however, the central canal is patent throughout. No evidence of intraspinal hematoma. Region of T2 signal prolongation and mild swelling with in the right cervical cord centered at the C3-C4 level. Finding is new when compared to the prior MR and is consistent with recent injury. RADIA The above findings were discussed with Dr. Parikh by Dr. Artemio Riddle at 00:42 hrs on 01/10/17. Electronically signed by Artemio Riddle MD on Jan 10 2017 12:50AM Referring Provider Line: [phone] ID: [id number] Mri C-spine Without Contrast 01/07/2017 Left thyroid mass measures up to 3.8 cm. Consider correlation with thyroid ultra sound. Changes of ankylosing spondylitis throughout the cervical and upper thoracic spine. T here is a small amount of prevertebral soft tissue edema. 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 T2 signal prolongation within the disk s pace at C6-C7. Findings represent nondisplaced fracture through the ankylosed spine at this level. RADIA Electronically signed by Artemio Riddle MD on Jan 07 2017 1:18AM Referring Prov ider Line: [phone] ID: [id number] Xr Chest 1 View 01/09/2017 1. Status post intubation and nasogastric tube placement, as above. 2. Increas ing bilateral basilar subsegmental atelectasis. 3. Status post spine fusion, with hardware partially visualized. Ct Facial Bones 01/07/2017 1. Acute displaced fracture of the anterolateral wall of the left maxillary sinu s (series 4 image 30, series 3 image 70). The fracture fragment is displaced superomedially and posteriorly into the left maxillary sinus. 2. Given the left maxillary sinus wall fractu re, there is now resulting soft tissue emphysema within the left submandibular space, left m asticator space, and left periorbital soft tissues. 3. 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 No evidence of acute fracture or malalignment involving the spine. However, given the ankylosed spine MRI of the spine is recommended, as clinically indicated, to further evalua te. RADIA Electronically signed by Divya Prieto MD on Jan 07 2017 1:30AM Referring Pro vider Line: [phone] ID: [id number] Echo Cardiac Adult Limited 01/07/2017 1. The left ventricle is normal in size, mild concentric hypertrophy and hyperdy namic systolic function EF >70%. 2. The right ventricle is moderately enlarged with normal s ystolic function. 3. The aortic valve is mildly calcified with mild aortic regurgitation. 4. There is no pericardial effusion. X-ray C-arm Fluoro Over 1 Hour 01/09/2017 1. Procedural films, as above. Ct Thoracic Lumbar Without Contrast 01/07/2017 1. Diffuse ankylosis of the spine. No evidence of acute fracture or traumatic s ubluxation. If there is continued concern for acute fracture or ligamentous injury, consider further evaluation with MRI. 2. Minimal compression of the superior endplate of L1 which i s age indeterminate. LEM LIST Principal Problem: Closed nondisplaced fracture of seventh cervical vertebra (HCC) Active Problems: Maxillary fracture, left side, initial encounter for open fracture Antiphospholipid syndrome (HCC) Controlled type 2 diabetes mellitus with hyperglycemia (HCC) Syncope and collapse Thyroid mass CSF leak Resolved Problems: * No resolved hospital problems. * ASSESSMENT & PLAN NEURO: CSF Leak: Lumbar drain placed by Neurosurgery 5/23. Orders to drain 15mls of CSF Q 1 h our as per NS and keep HOB >30 degrees. Okay to ambulate with drain off as per NS. Monitor neuro status closely Cervical Fracture: S/P fusion C3 to T2. Remains in C collar. Post surgical management by NS CAM ICU each shift CV: Hypertension: Currently treated with home dose lisinopril; monitor closely PULM: No acute pulmonary issues; monitor closely GI/NUTRITION: Diabetic Diet RENAL/LYTES: Renal function appears to be at baseline; monitor renal function closely Avoid nephrotoxins Monitor electrolytes and replace as per ICU protocol ID: Afebrile with WBC trending down and no Bandemia. 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 Disposition: ICU care for monitoring/hourly drainage of CSF from lumbar drain Code Status: Full Code *Please bill 40 minutes of critical care time spent evaluating the patient, reviewing the d seng and formulating a plan exclusive of all other procedures. BRI Hoff 01/14/2017 onversion Transa ction, Provider Unknown - 01/13/2017 3:29 PM PDT Case Management by JAMIE Tracey at 01/13/17 7015 Author: JAMIE Tracey Service: (none) Author Type: Fpga Engineer Filed: 01/13/17 9150 Date of Service: 01/13/171528 Status: Signed Food Service Helper: JAMIE Tracey (Fpga Engineer) Pt readmitted to ICU from Surgical floor due to CSF leak and placement of lumbar drain. DC plan remains home with 24 hour assistance from family. CM will cont to monitor. onver jacki Transaction, Provider Unknown - 01/13/2017 1:18 PM PDT Therapy Progress Note by Paul Gonzales, PT at 01/13/17 5717 Author: Paul Gonzales PT Service: (none) Author Type: Physical Therapist Filed: 01/13/17 2403 Date of Service: 01/13/179 Status: Signed Food Service Helper: Paul Gonzales PT (Physical Therapist) 01/13/17 1310 PT Last Visit PT Received On 01/13/17 Reason for Treatment Spinal surgery (+ LUMBAR - DRAINAGE ) Requires PT Follow Up Awaiting tx order Follow up PT Only? No PT Eval/Reassessment Date 01/13/17 Assistance Required 1 person Precautions Spinal Precautions Cervical;Cervical collar on when upright Other Precautions HOB elevated 60-70 all times, lumbar drain Other Comments Comments pt. supine in bed and agreeable to PT. Reviewed spinal precautions with pt. that he didn't know. supine to sit Mod A, pt very dizzy upone sitting EOB and sat EOB for 5 min utes, Bp taken at this time and was WFL, sit to stand Mod A, pt. slightly dizzy upon standi ng but improve over time. pt.then ambulated approx 25' with FWW with Min A. pt. sitting in recliner with call light in reach and at 60 degrees. pt. given instructions about the impo rtance of maintianing position. KARISSA gross present [facility] 2[place] session Cognition Overall Cognitive Status WFL Orientation Level Oriented Bed Mobility Supine to Sit Mod assist (BLEs OOB or trunk to upright) Transfers Sit to/from Stand Moderate assist (to arise OR lower) Mobility Ambulation Assistance Minimal assist Maximal Ambulation Distance (feet) 25 Total Ambulation Distance (feet) 25 Distance limited by? Patient's ability Pattern Step to;Decreased khalif;Right swing foot doesn't pass stance foot;Left swing foot doesn't pass stance foot;Forward flexed Assistive Device Walker front wheeled Activity Tolerance Activity Tolerance Patient limited by pain Nurse Made Aware yes Plan Treatment/Interventions Balance training;Bed mobility training;Gait training;Therapeutic ex ercise;Transfer training PT Frequency 5-7x/wk;Twice a day;Once per day Care Duration (# of days) 7 # of days Recommendation Recommendations Defer Recommendation Comments pt. needs continued ambulation training at this time recommend SNF but could change as pt. improves Mendze Oconnor MD - 01/13/2017 12:39 PM PDT Progress Notes by Mendez Morrison MD at 01/13/17 1239 Author: Mendez Morrison MD Service: Neurosurgery Author Type: Physician Filed: 01/13/17 7187 Date of Service: 01/13/17 1239 Status: Signed Food Service Helper: Mendez Morrison MD (Physician) [facility] Service: Neurosurgery Progress Note Hospital Day: LOS: 6 days Post-Op Day: 1 Day Post-Op Surgery/Procedure: Procedure(s) (LRB): LUMBAR - DRAINAGE (N/A) SUBJECTIVE Patient Summary: Doing fine. Has some headaches Events Overnight: No acute events Scheduled Medications allopurinol 100 mg Oral Daily bisacodyl 10 mg Rectal Daily calcium carbonate-vitamin D 1 tablet Oral BID WC hydrochlorothiazide 25 mg Oral Daily insulin detemir 59 Units Subcutaneous BID insulin lispro (human) 6 Units Subcutaneous TID AC insulin lispro (human) 6-18 Units Subcutaneous Q4H levothyroxine 50 mcg Oral QAM AC lisinopril 10 mg Oral Daily morphine 60 mg Oral 2 times per day [START ON 01/14/2017] pantoprazole 40 mg Oral QAM AC sodium phosphate 45 mmol Intravenous Once zinc sulfate 220 mg Oral Daily Continuous Infusions dextrose PRN Medications acetaminophen OR acetaminophen, carboxymethylcellulose, dextrose, dextrose, dextrose, d ocusate sodium OR docusate, fentaNYL OR fentaNYL, lactulose, magnesium sulfate OR* * magnesium sulfate OR magnesium sulfate, morphine, nystatin, nystatin, ondansetron OR ondansetron, petrolatum, phosphorus OR sodium phosphate IVPB 20 mmol OR sodium ph osphate IVPB 45 mmol, polyethylene glycol, potassium OR potassium OR potassium OR* * potassium chloride OR potassium chloride OR potassium chloride OBJECTIVE Vital Signs: BP 134/60 mmHg | Pulse 66 | Temp(Src) 97.9 F (36.6 C) (Oral) | Resp 15 | Ht 1.778 m (5' 10") | Wt 121.3 kg (267 lb 6.7 oz) | BMI 38.37 kg/m2 | SpO2 99% Ox3 craft demonstrator intact 5/5 x4 Sensation intact No radicular pain Wound CDI DATA Recent Labs Lab 01/13/1741301/12/17 0558 01/11/17 040 WBC 16.48* 20.42* 25.36* RBC 4.46 3.89* 3.94* HGB 13.0* 11.2* 11.3* HCT 38.5* 33.4* 33.5* MCV 86.3 85.7 85.2 MCH 29.2 28.7 28.7 MCHC 33.8 33.5 33.7 RDW 44.6 44.6 43.3 PLT 288 254 222 MPV 8.3 8.1 8.1 DIFFTYPE MANUAL MANUAL MANUAL Results Procedure Component Value Units Date/Time POCT glucose [[id number]] (Abnormal) Collected: 01/13/17927 GLUCOSE,POC SCREEN 141 (H) mg/dL Updated: 01/13/17929 CBC w/auto diff (reflex to manual) [[id number]] (Abnormal) Collected: 01/13/17413 Specimen Information: Blood Updated: 01/13/17529 WBC 16.48 (H) K/uL RBC 4.46 M/uL HGB 13.0 (L) g/dL HCT 38.5 (L) % MCV 86.3 fl MCH 29.2 pg MCHC 33.8 g/dL RDW SD 44.6 fl PLT 288 K/uL MPV 8.3 fl DIFF TYPE MANUAL Neutrophils Manual 76 % Lymphocytes Manual 19 % Monocytes Manual 5 % Neutrophils Absolute 12.53 (H) K/uL Lymphocytes Absolute 3.13 K/uL Monocytes Absolute 0.82 (H) K/uL MORPHOLOGY RBC AND PLT MORPHOLOGY APPEAR NORMAL Basic metabolic panel [[id number]] (Abnormal) Collected: 01/13/17413 Specimen Information: Blood Updated: 01/13/17504 SODIUM 133 (L) mmol/L POTASSIUM 4.2 mmol/L CHLORIDE 93 (L) mmol/L CO2 31 mmol/L ANION GAP AGAP 13 mmol/L GLUCOSE 127 (H) mg/dL BUN 23 mg/dL CREATININE 1.0 mg/dL BUN/CREAT 23 CALCIUM 9.1 mg/dL EGFR >60 mL/min/1.73m2 Magnesium [[id number]] Collected: 01/13/17413 Specimen Information: Blood Updated: 01/13/17504 MAGNESIUM 2.0 mg/dL Phosphorus [[id number]] Collected: 01/13/17413 Specimen Information: Blood Updated: 01/13/17504 PHOSPHORUS 4.3 mg/dL Protime-INR [[id number]] Collected: 01/13/17413 Specimen Information: Blood Updated: 01/13/17440 INR 1.1 POCT glucose [[id number]] (Abnormal) Collected: 01/13/17219 GLUCOSE,POC SCREEN 136 (H) mg/dL Updated: 01/13/17223 Type and screen [[id number]] Collected: 01/09/17442 Specimen Information: Blood Updated: 01/12/172325 ABO/RH(D) A POSITIVE ANTIBODY SCREEN NEGATIVE ARM BAND NUMBER [id number] UNIT NUMBER [id number] BLOOD COMPONENT TYPE LEUKODEPLETED PC UNIT DIVISION 00 STATUS OF UNIT ISSUED,FINAL TRANSFUSION STATUS OK TO TRANSFUSE CROSSMATCH RESULT COMPATIBLE UNIT NUMBER [id number] BLOOD COMPONENT TYPE LEUKODEPLETED PC UNIT DIVISION 00 STATUS OF UNIT ISSUED,FINAL TRANSFUSION STATUS OK TO TRANSFUSE CROSSMATCH RESULT COMPATIBLE UNIT NUMBER [id number] BLOOD COMPONENT TYPE LEUKODEPLETED PC UNIT DIVISION 00 STATUS OF UNIT REL FROM ALLOC TRANSFUSION STATUS OK TO TRANSFUSE CROSSMATCH RESULT -- Result: COMPATIBLE Testing performed at [facility] [place] [place] [address] UNIT NUMBER [id number] BLOOD COMPONENT TYPE LEUKODEPLETED PC UNIT DIVISION 00 STATUS OF UNIT REL FROM ALLOC TRANSFUSION STATUS OK TO TRANSFUSE CROSSMATCH RESULT COMPATIBLE POCT glucose [[id number]] (Abnormal) Collected: 01/12/17 1643 GLUCOSE,POC SCREEN 178 (H) mg/dL Updated: 01/12/17 2322 POCT glucose [[id number]] (Abnormal) Collected: 01/12/17 1214 GLUCOSE,POC SCREEN 157 (H) mg/dL Updated: 01/12/176 Basic metabolic panel [[id number]] (Abnormal) Collected: 01/12/17557 Specimen Information: Blood Updated: 01/12/17718 SODIUM 135 mmol/L POTASSIUM 4.7 mmol/L CHLORIDE 97 (L) mmol/L CO2 31 mmol/L ANION GAP AGAP 12 mmol/L GLUCOSE 230 (H) mg/dL BUN 19 mg/dL CREATININE 0.8 mg/dL BUN/CREAT 24 CALCIUM 9.7 mg/dL EGFR >60 mL/min/1.73m2 Magnesium [[id number]] Collected: 01/12/17557 Specimen Information: Blood Updated: 01/12/17718 MAGNESIUM 2.3 mg/dL Phosphorus [[id number]] Collected: 01/12/17557 Specimen Information: Blood Updated: 01/12/17718 PHOSPHORUS 2.9 mg/dL CBC w/auto diff (reflex to manual) [[id number]] (Abnormal) Collected: 01/12/17557 Specimen Information: Blood Updated: 01/12/1716 WBC 20.42 (H) K/uL RBC 3.89 (L) M/uL HGB 11.2 (L) g/dL HCT 33.4 (L) % MCV 85.7 fl MCH 28.7 pg MCHC 33.5 g/dL RDW SD 44.6 fl PLT 254 K/uL MPV 8.1 fl DIFF TYPE MANUAL Neutrophils Manual 90 % Lymphocytes Manual 6 % Monocytes Manual 4 % Neutrophils Absolute 18.37 (H) K/uL Lymphocytes Absolute 1.23 K/uL Monocytes Absolute 0.82 (H) K/uL MORPHOLOGY RBC AND PLT MORPHOLOGY APPEAR NORMAL Protime-INR [[id number]] Collected: 01/12/17557 Specimen Information: Blood Updated: 01/12/1740 INR 1.1 POCT glucose [[id number]] (Abnormal) Collected: 01/12/17 0539 GLUCOSE,POC SCREEN 287 (H) mg/dL Updated: 01/12/1754 POCT glucose [[id number]] (Abnormal) Collected: 01/11/17 2000 GLUCOSE,POC SCREEN 161 (H) mg/dL Updated: 01/11/172005 POCT glucose [[id number]] (Abnormal) Collected: 01/11/17 1427 GLUCOSE,POC SCREEN 166 (H) mg/dL Updated: 01/11/17 1709 Sputum cult w/ gram stain [[id number]] Collected: 01/09/17 1844 Specimen Information: Nasopharyngeal from Sputum Updated: 01/11/17 1117 Specimen Description SPUTUM GRAM STAIN GREATER THAN 10 WBCS/LPF GRAM STAIN LESS THAN 10 SEC/LPF GRAM STAIN 1+ GRAM STAIN GRAM POSITIVE COCCI CULTURE 1+ NORMAL UPPER RESPIRATORY BILLY POCT glucose [[id number]] (Abnormal) Collected: 01/11/17 1006 GLUCOSE,POC SCREEN 206 (H) mg/dL Updated: 01/11/17 1010 POCT glucose [[id number]] (Abnormal) Collected: 01/11/17 0626 GLUCOSE,POC SCREEN 186 (H) mg/dL Updated: 01/11/17 0637 Basic metabolic panel [[id number]] (Abnormal) Collected: 01/11/17406 Specimen Information: Blood Updated: 01/11/17521 SODIUM 137 mmol/L POTASSIUM 4.8 mmol/L CHLORIDE 103 mmol/L CO2 27 mmol/L ANION GAP AGAP 12 mmol/L GLUCOSE 185 (H) mg/dL BUN 13 mg/dL CREATININE 0.8 mg/dL BUN/CREAT 16 CALCIUM 8.6 mg/dL EGFR >60 mL/min/1.73m2 Magnesium [[id number]] (Abnormal) Collected: 01/11/17406 Specimen Information: Blood Updated: 01/11/17521 MAGNESIUM 2.5 (H) mg/dL Phosphorus [[id number]] Collected: 01/11/17406 Specimen Information: Blood Updated: 01/11/17521 PHOSPHORUS 2.6 mg/dL CBC w/auto diff (reflex to manual) [[id number]] (Abnormal) Collected: 01/11/17406 Specimen Information: Blood Updated: 01/11/17511 WBC 25.36 (H) K/uL RBC 3.94 (L) M/uL HGB 11.3 (L) g/dL HCT 33.5 (L) % MCV 85.2 fl MCH 28.7 pg MCHC 33.7 g/dL RDW SD 43.3 fl PLT 222 K/uL MPV 8.1 fl DIFF TYPE MANUAL Neutrophils Manual 83 % Bands 7 % Lymphocytes Manual 4 % Monocytes Manual 6 % Neutrophils Absolute 21.05 (H) K/uL Bands Manual 1.78 (H) K/uL Lymphocytes Absolute 1.01 K/uL Monocytes Absolute 1.52 (H) K/uL MORPHOLOGY RBC AND PLT MORPHOLOGY APPEAR NORMAL Protime-INR [[id number]] Collected: 01/11/17 0407 Specimen Information: Blood Updated: 01/11/17 0445 INR 1.1 POCT glucose [[id number]] (Abnormal) Collected: 01/11/17 0209 GLUCOSE,POC SCREEN 241 (H) mg/dL Updated: 01/11/17 0236 POCT glucose [[id number]] (Abnormal) Collected: 01/10/17 2222 GLUCOSE,POC SCREEN 291 (H) mg/dL Updated: 01/10/17 2226 POCT glucose [[id number]] (Abnormal) Collected: 01/10/17 1844 GLUCOSE,POC SCREEN 209 (H) mg/dL Updated: 01/10/17 1857 POCT glucose [[id number]] (Abnormal) Collected: 01/10/17 1503 GLUCOSE,POC SCREEN 116 (H) mg/dL Updated: 01/10/17 1857 Magnesium [[id number]] Collected: 01/10/17 1607 Specimen Information: Blood Updated: 01/10/17 1631 MAGNESIUM 2.0 mg/dL Phosphorus [[id number]] Collected: 01/10/17 1607 Specimen Information: Blood Updated: 01/10/17 1631 PHOSPHORUS 3.9 mg/dL Potassium [[id number]] Collected: 01/10/17 1607 Specimen Information: Blood Updated: 01/10/17 1631 POTASSIUM 3.8 mmol/L POCT glucose [[id number]] (Abnormal) Collected: 01/10/17 0935 GLUCOSE,POC SCREEN 127 (H) mg/dL Updated: 01/10/17 1312 POCT glucose [[id number]] (Abnormal) Collected: 01/10/17 1258 GLUCOSE,POC SCREEN 119 (H) mg/dL Updated: 01/10/17 1312 POCT glucose [[id number]] (Abnormal) Collected: 01/10/17 0833 GLUCOSE,POC SCREEN 121 (H) mg/dL Updated: 01/10/17 1312 Recent Labs Lab 01/13/17 0414 01/12/17 0558 01/11/17 0407 01/06/17 2335 APTT -- -- -- -- 39* INR 1.1 1.1 1.1 < > 2.2 < > = values in this interval not displayed. Cta Head Neck 01/09/2017 1. Right T1 posterior elements screw extends into the right T1-T2 neural forame n. 2. Small tentorial subdural hematoma bilaterally. 3. Probable postoperative pneumocepha lidia, as above. 4. No evidence of hemodynamically significant arterial stenosis in the neck or head. 5. C6-C7 fracture, as above, with intact fusion from C3 to T2, in this patient wi th evidence of ankylosing spondylitis. Electronically signed by Arthur Rodriguez MD on 2016 6:49 PM X-ray Shoulder Right Complete 2+v 01/07/2017 FINDINGS/ IMPRESSION: 1. No acute fracture or dislocation. 2. 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 3. Osteopenia. Electronicall y signed by Cierra López on 01/07/2017 1:49 PM X-ray Knee Limited Left 01/07/2017 No acute fracture or dislocation. No bone, joint or soft tissue abnormality. Kristy ctronically signed by Omkar Lopes MD on 01/07/2017 6:58 AM X-ray Knee Limited Right 01/07/2017 No acute fracture or dislocation. No bone, joint or soft tissue abnormality. Kristy ctronically signed by Omkar Lopes MD on 01/07/2017 6:57 AM Cta Neck With Iv Contrast 01/07/2017 1. No evidence of significant hemodynamic stenosis, aneurysm, or dissection inv olving the carotid arteries in the neck. 2. Depressed fracture of the anterior wall of the left maxillary sinus with overlying soft tissue swelling and emphysema. Electronically malachi d by Raf Donnelly on 01/07/2017 11:[address] Cervical Spine Without Contrast 01/12/2017 1. Previously seen surgical drain has been removed. 2. Right-sided pedicle scr ew at C7 traverses the superior margin of the C7-T1 neural foramen and could affect the exit ing right C8 nerve root. Right-sided pedicle screw at T1 traverses the T1-2 neural foramen centrally and may be compressing the exiting right T1 nerve root. These findings are unchan ged from the previous exam. 3. All other transpedicular screws are in satisfactory position . 4. Enlarged left thyroid lobe suggesting goiter or large nodule. 5. Atrophy of the right submandibular gland with a 6 mm sialolith seen within the gland. Mri Brain Without Contrast 01/10/2017 Intraventricular and subarachnoid gas, the appearance is similar to the prior CT . No evidence of intracranial hemorrhage or recent infarct. RADIA Electronically signed by Artemio Riddle MD on Jan 10 2017 12:26AM Referring Provider Line: [phone] ID: [id number] Mri Cervical Spine Without Contrast 01/10/2017 Posterior instrumentation from C3-T2. Interval widening of the C6-C7 disk space, this is at the level of fracture in this patient with ankylosing spondylitis. Examination s lightly limited by the implanted hardware, however, the central canal is patent throughout. No evidence of intraspinal hematoma. Region of T2 signal prolongation and mild swelling with in the right cervical cord centered at the C3-C4 level. Finding is new when compared to the prior MR and is consistent with recent injury. RADIA The above findings were discussed with Dr. Parikh by Dr. Artemio Riddle at 00:42 hrs on 01/10/17. Electronically signed by Artemio Riddle MD on Jan 10 2017 12:50AM Referring Provider Line: [phone] ID: [id number] Mri C-spine Without Contrast 01/07/2017 Left thyroid mass measures up to 3.8 cm. Consider correlation with thyroid ultra sound. Changes of ankylosing spondylitis throughout the cervical and upper thoracic spine. T here is a small amount of prevertebral soft tissue edema. 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 T2 signal prolongation within the disk s pace at C6-C7. Findings represent nondisplaced fracture through the ankylosed spine at this level. RADIA Electronically signed by Artemio Riddle MD on Jan 07 2017 1:18AM Referring Prov ider Line: [phone] ID: [id number] Xr Chest 1 View 01/09/2017 1. Status post intubation and nasogastric tube placement, as above. 2. Increas ing bilateral basilar subsegmental atelectasis. 3. Status post spine fusion, with hardware partially visualized. Ct Facial Bones 01/07/2017 1. Acute displaced fracture of the anterolateral wall of the left maxillary sinu s (series 4 image 30, series 3 image 70). The fracture fragment is displaced superomedially and posteriorly into the left maxillary sinus. 2. Given the left maxillary sinus wall fractu re, there is now resulting soft tissue emphysema within the left submandibular space, left m asticator space, and left periorbital soft tissues. 3. 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 No evidence of acute fracture or malalignment involving the spine. However, given the ankylosed spine MRI of the spine is recommended, as clinically indicated, to further evalua te. RADIA Electronically signed by Divya Prieto MD on Jan 07 2017 1:30AM Referring Pro vider Line: [phone] ID: [id number] Echo Cardiac Adult Limited 01/07/2017 1. The left ventricle is normal in size, mild concentric hypertrophy and hyperdy namic systolic function EF >70%. 2. The right ventricle is moderately enlarged with normal s ystolic function. 3. The aortic valve is mildly calcified with mild aortic regurgitation. 4. There is no pericardial effusion. X-ray C-arm Fluoro Over 1 Hour 01/09/2017 1. Procedural films, as above. Ct Thoracic Lumbar Without Contrast 01/07/2017 1. Diffuse ankylosis of the spine. No evidence of acute fracture or traumatic s ubluxation. If there is continued concern for acute fracture or ligamentous injury, consider further evaluation with MRI. 2. Minimal compression of the superior endplate of L1 which i s age indeterminate. LEM LIST Principal Problem: Closed nondisplaced fracture of seventh cervical vertebra (HCC) Active Problems: Maxillary fracture, left side, initial encounter for open fracture Antiphospholipid syndrome (HCC) Controlled type 2 diabetes mellitus with hyperglycemia (HCC) Syncope and collapse Thyroid mass CSF leak ASSESSMENT & PLAN POD 4 C3-T 2 fusion POD 1 Lumbar drain palcement Wound dry CSF draining at 15cc per hour Maintain drainage for four days before de escalating HOB at 30 OOB in C collar Diabetic diet PT Disposition: Unknown Code Status: Full Code Mendez Morrison MD 01/13/2017 12:39 PM Carlos Mtz ARNP - 01/13/2017 1:06 AM PDTFormatting of this note might be different from the o riginal. Progress Notes by BRI Hoff at 01/13/17105 Author: BRI Hoff Service: Senior Staff Psychologist Author Type: Advanced Registered Nicky se Practitioner Filed: 01/13/1733 Date of Service: 01/13/17105 Status: Signed Food Service Helper: BRI Hoff (Advanced Registered Nurse Practitioner) [facility] Service: Senior Staff Psychologist Progress Note Jose Rafael Walker 66 y.o. Hospital Day: LOS: 6 days Post-Op Day: Day of Surgery Consulting Physicians Treatment Team: Consulting Physician: Mendez Morrison MD Consulting Physician: Jeovany Jennings MD Admitting Provider: Moni Dumont DO SUBJECTIVE Patient Summary: From Dr Dumont's H&P: The patient is a 66 y.o. male with significant past medical history of ankylosing spondylit is, diabetes type II, deep vein thrombosis, iron deficiency anemia, testicular hypofunction, obesity, hypertension, dyslipidemia, abdomen disorder, transient ischemic attack, non ambul atory ankylosing spondylitis, who presents to transfer from [facility] with a C7 fracture, left maxillary sinus fracture, thyroid mass and syncope. Main complaints at the o azlining facility were left sided face swelling, neck pain, confusion and difficulty remembe ring anything. Per history, patient woke up in a chair, went into the bathroom and found thi ngs in disarray. Granddaughter was then notified by neighbors that they heard a crashing berta nd earlier around 1:30. During the day patient had being a but was in the his usual state of health, came home and went to sleep on his recliner. He cannot remember anything th at happened, next thing that he was clear in his mind was his granddaughter asking questions . Patient denies any chest pain, shortness of breath, headache, dizziness, confusion, fever, chills or illness prior to his syncopal episode/ amnestic event. Reports chronic right shou lder pain. Reports neck pain with movement of his legs or any part of his body. He denies any dysphagi a. ED findings: C7 fracture, leukocytosis, hypokalemia, thyroid mass, left maxillary sinus fra cture [facility] ED treatment: Dilaudid, morphine, cyclobenzaprine From Dr Saravia's most recent progress note: 66-year-old gentleman with past medical history of ankylosing spondylitis, diabetes mellitu s type II on insulin, history of deep vein thrombosis, iron deficiency anemia, hypertension hyperlipidemia history of transient ischemic attack who had a fall in his bathroom and was t aken to the hospital with neck pain found to have C7 fracture, left maxillary sinus fracture , enlarged left thyroid lobe suggesting goiter a large nodule and patient does not recall th e circumstances of all though he admitted that he takes morphine which might have makes him loopy and had a fall because affect. Patient underwent C3-C4, 3-5, 5-6, 6-7, C7-T1, T1-T2 posterior pedicle L mass lesion by Dr. Rivera on 09 january and postoperatively patient was intubated for airways protection and transferred to ICU and was transferred back to the floor on 11 january. Patient had a syncope workup including echocardiogram which showed normal ejection fraction ,no significant valvular abnormalities and CT neck was negative for any stenosis, aneurysm or dissection ICU Timeline: 01/12: Admitted to ICU after placement of Lumbar drain by Neurosurgery due to CSF leak Events Overnight: No new issues since admission; improving pain control at this time SCHEDULED MEDICATIONS allopurinol 100 mg Oral Daily bisacodyl 10 mg Rectal Daily calcium carbonate-vitamin D 1 tablet Oral BID WC hydrochlorothiazide 25 mg Oral Daily insulin detemir 59 Units Subcutaneous BID insulin lispro (human) 6 Units Subcutaneous TID AC insulin lispro (human) 6-18 Units Subcutaneous Q4H levothyroxine 50 mcg Oral QAM AC lisinopril 10 mg Oral Daily morphine 60 mg Oral 2 times per day pantoprazole 40 mg Intravenous QAM AC sodium phosphate 45 mmol Intravenous Once zinc sulfate 220 mg Oral Daily CONTINUOUS INFUSIONS dextrose OBJECTIVE VITAL SIGNS Temp: [97.5 F (36.4 C)-98.2 F (36.8 C)] 98.1 F (36.7 C) Heart Rate: [61-76] 69 Resp: [13-23] 16 BP: (124-164)/(58-74) 164/72 mmHg Intake/Output Summary (Last 24 hours) at 01/13/17 0532 Last data filed at 01/13/17 0500 Gross per 24 hour Intake 920 ml Output 3380 ml Net -2460 ml EXAM GEN: awake, alert, oriented x3, appears comfortable at this time NEURO: PERRLA, EOMI, no facial asymmetry, moves all extremities weakly but equally GCS: 15 HEENT: sclerae clear, nonicteric, oral mmm, pink, no exudates NECK: supple, trachea midline, C Collar in place CV: RRR, S1/S2, no murmur, rub or gallop, peripheral pulses palpable, cap refill brisk LUNGS: clear b/l, no wheezing, rales or rhonchi, symmetric chest expansion, even/unlabored respirations ABD: soft, nondistended, nontender to palpation, no masses, no hepatosplenomegaly EXTR: trace BLE edema, no clubbing or cyanosis SKIN: warm, dry, no rash or mottling; no e/o skin breakdown over the occiput, scapulae, elb ows, sacrum or heels. Surgical incisions dressed LINES/TUBES: PIV X 2, Lumbar drain with clear CSF in collection bag DATA Recent Labs Lab 01/13/17 0414 01/12/17 0558 01/11/17 0407 01/10/17 0433 01/09/17 1825 01/07/17 0608 01/06/17 2335 WBC 16.48* 20.42* 25.36* 15.91* 18.34* -- 9.71 11.78* RBC 4.46 3.89* 3.94* 3.93* 4.17* -- 5.07 4.78 HGB 13.0* 11.2* 11.3* 11.3* 12.3* < > 14.6 13.9 HCT 38.5* 33.4* 33.5* 33.7* 35.6* < > 43.1 40.2 MCV 86.3 85.7 85.2 85.8 85.4 -- 85.0 84.0 MCH 29.2 28.7 28.7 28.7 29.6 -- 28.8 29.0 MCHC 33.8 33.5 33.7 33.5 34.7 -- 33.9 34.5 RDW 44.6 44.6 43.3 44.6 43.3 -- 44.2 44.6 PLT 288 254 222 220 219 -- 243 240 MPV 8.3 8.1 8.1 8.1 7.5 -- 7.7 7.1 BANDSABS -- -- 1.78* 1.11* -- -- -- -- NEUTROABS -- -- -- -- 17.49* -- 7.34 8.86* LYMPHSABS -- -- -- -- 0.53* -- 1.37 1.86 MONOSABS -- -- -- -- 0.28 -- 0.78 0.86* BASOSABS -- -- -- -- 0.03 -- 0.06 0.07 EOSABS -- -- -- -- 0.01 -- 0.16 0.13 MORPH RBC AND PLT MORPHOLOGY APPEAR NORMAL RBC AND PLT MORPHOLOGY APPEAR NORMAL RBC AND PLT MORPHOLOGY APPEAR NORMAL RBC AND PLT MORPHOLOGY APPEAR NORMAL RBC AND PLT MORPHOLOGY APPEAR NORMAL < > -- -- < > = values in this interval not displayed. Recent Labs Lab 01/13/17 0414 01/12/17 0558 01/11/17 0407 01/09/17 1825 01/06/17 2335 NA 133* 135 137 < > 138 < > 137 K 4.2 4.7 4.8 < > 5.0* < > 3.4* CL 93* 97* 103 < > 105 < > 102 CO2 31 31 27 < > 26 < > 25 ANIONGAP 13 12 12 < > 11 < > 14 GLUF 127* 230* 185* < > 270* < > 182* BUN 23 19 13 < > 15 < > 12 CREATININE 1.0 0.8 0.8 < > 0.96 < > 1.0 BCR 23 24 16 < > 16 < > 12 CA 9.1 9.7 8.6 < > 7.1* < > 8.3* ALB -- -- -- -- 2.7* -- 3.0* GLOB -- -- -- -- 3.2 -- 3.8 AG -- -- -- -- 0.8* -- 0.8* PROT -- -- -- -- 5.9* -- 6.8 BILITOT -- -- -- -- 1.1 -- 1.0 ALT -- -- -- -- 42 -- 45 AST -- -- -- -- 43 -- 32 EGFR >60 >60 >60 < > >60 < > >60 PHOS 4.3 2.9 2.6 < > 3.6 < > -- MG 2.0 2.3 2.5* < > 2.2 < > -- < > = values in this interval not displayed. Recent Labs Lab 01/13/17 0414 01/12/17 0558 01/11/17 0407 INR 1.1 1.1 1.1 IMAGING Cta Head Neck 01/09/2017 1. Right T1 posterior elements screw extends into the right T1-T2 neural forame n. 2. Small tentorial subdural hematoma bilaterally. 3. Probable postoperative pneumocepha lidia, as above. 4. No evidence of hemodynamically significant arterial stenosis in the neck or head. 5. C6-C7 fracture, as above, with intact fusion from C3 to T2, in this patient wi th evidence of ankylosing spondylitis. Electronically signed by Arthur Rodriguez MD on 2016 6:49 PM X-ray Shoulder Right Complete 2+v 01/07/2017 FINDINGS/ IMPRESSION: 1. No acute fracture or dislocation. 2. 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 3. Osteopenia. Electronicall y signed by Cierra López on 01/07/2017 1:49 PM X-ray Knee Limited Left 01/07/2017 No acute fracture or dislocation. No bone, joint or soft tissue abnormality. Kristy ctronically signed by Omkar Lopes MD on 01/07/2017 6:58 AM X-ray Knee Limited Right 01/07/2017 No acute fracture or dislocation. No bone, joint or soft tissue abnormality. Kristy ctronically signed by Omkar Lopes MD on 01/07/2017 6:57 AM Cta Neck With Iv Contrast 01/07/2017 1. No evidence of significant hemodynamic stenosis, aneurysm, or dissection inv olving the carotid arteries in the neck. 2. Depressed fracture of the anterior wall of the left maxillary sinus with overlying soft tissue swelling and emphysema. Electronically malachi d by Raf Donnelly on 01/07/2017 11:[address] Cervical Spine Without Contrast 01/12/2017 1. Previously seen surgical drain has been removed. 2. Right-sided pedicle scr ew at C7 traverses the superior margin of the C7-T1 neural foramen and could affect the exit ing right C8 nerve root. Right-sided pedicle screw at T1 traverses the T1-2 neural foramen centrally and may be compressing the exiting right T1 nerve root. These findings are unchan ged from the previous exam. 3. All other transpedicular screws are in satisfactory position . 4. Enlarged left thyroid lobe suggesting goiter or large nodule. 5. Atrophy of the right submandibular gland with a 6 mm sialolith seen within the gland. Mri Brain Without Contrast 01/10/2017 Intraventricular and subarachnoid gas, the appearance is similar to the prior CT . No evidence of intracranial hemorrhage or recent infarct. RADIA Electronically signed by Artemio Riddle MD on Jan 10 2017 12:26AM Referring Provider Line: [phone] ID: [id number] Mri Cervical Spine Without Contrast 01/10/2017 Posterior instrumentation from C3-T2. Interval widening of the C6-C7 disk space, this is at the level of fracture in this patient with ankylosing spondylitis. Examination s lightly limited by the implanted hardware, however, the central canal is patent throughout. No evidence of intraspinal hematoma. Region of T2 signal prolongation and mild swelling with in the right cervical cord centered at the C3-C4 level. Finding is new when compared to the prior MR and is consistent with recent injury. RADIA The above findings were discussed with Dr. Parikh by Dr. Artemio Riddle at 00:42 hrs on 01/10/17. Electronically signed by Artemio Riddle MD on Jan 10 2017 12:50AM Referring Provider Line: [phone] ID: [id number] Mri C-spine Without Contrast 01/07/2017 Left thyroid mass measures up to 3.8 cm. Consider correlation with thyroid ultra sound. Changes of ankylosing spondylitis throughout the cervical and upper thoracic spine. T here is a small amount of prevertebral soft tissue edema. 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 T2 signal prolongation within the disk s pace at C6-C7. Findings represent nondisplaced fracture through the ankylosed spine at this level. RADIA Electronically signed by Artemio Riddle MD on Jan 07 2017 1:18AM Referring Prov ider Line: [phone] ID: [id number] Xr Chest 1 View 01/09/2017 1. Status post intubation and nasogastric tube placement, as above. 2. Increas ing bilateral basilar subsegmental atelectasis. 3. Status post spine fusion, with hardware partially visualized. Ct Facial Bones 01/07/2017 1. Acute displaced fracture of the anterolateral wall of the left maxillary sinu s (series 4 image 30, series 3 image 70). The fracture fragment is displaced superomedially and posteriorly into the left maxillary sinus. 2. Given the left maxillary sinus wall fractu re, there is now resulting soft tissue emphysema within the left submandibular space, left m asticator space, and left periorbital soft tissues. 3. 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 No evidence of acute fracture or malalignment involving the spine. However, given the ankylosed spine MRI of the spine is recommended, as clinically indicated, to further evalua te. RADIA Electronically signed by Divya Prieto MD on Jan 07 2017 1:30AM Referring Pro vider Line: [phone] ID: [id number] Echo Cardiac Adult Limited 01/07/2017 1. The left ventricle is normal in size, mild concentric hypertrophy and hyperdy namic systolic function EF >70%. 2. The right ventricle is moderately enlarged with normal s ystolic function. 3. The aortic valve is mildly calcified with mild aortic regurgitation. 4. There is no pericardial effusion. X-ray C-arm Fluoro Over 1 Hour 01/09/2017 1. Procedural films, as above. Ct Thoracic Lumbar Without Contrast 01/07/2017 1. Diffuse ankylosis of the spine. No evidence of acute fracture or traumatic s ubluxation. If there is continued concern for acute fracture or ligamentous injury, consider further evaluation with MRI. 2. Minimal compression of the superior endplate of L1 which i s age indeterminate. LEM LIST Principal Problem: Closed nondisplaced fracture of seventh cervical vertebra (HCC) Active Problems: Maxillary fracture, left side, initial encounter for open fracture Antiphospholipid syndrome (HCC) Controlled type 2 diabetes mellitus with hyperglycemia ([facility]) Syncope and collapse Thyroid mass CSF leak Resolved Problems: * No resolved hospital problems. * ASSESSMENT & PLAN NEURO: CSF Leak: Lumbar drain placed by Neurosurgery 01/12. Orders to drain 15mls of CSF Q 1 h our as per NS and keep HO 60-70 degrees. Okay to ambulate with drain off as per NS. Monito r neuro status closely Cervical Fracture: S/P fusion C3 to T2. Remains in C collar. Post surgical management by NS CAM ICU each shift CV: Hypertension: Currently treated with home dose lisinopril; monitor closely PULM: No acute pulmonary issues; monitor closely GI/NUTRITION: Diabetic Diet RENAL/LYTES: Renal function appears to be at baseline; monitor renal function closely Avoid nephrotoxins Monitor electrolytes and replace as per ICU protocol ID: Afebrile with WBC trending down and no Bandemia. No ABX treatment at this time; monitor closely HEME: H/H remains largely unchanged; monitor CBCs and Coags closely Antiphospholipid Syndrome: Chronic anticoagulation to resume as per Neurosurgery and He matology ENDO: DM2 with fdc insulin use: Goal BG 80-180; continue treatment with SSI and Levemir Hypothyroidism: Continue treatment with home dose synthroid MUSC/SKIN: Left Maxillary Fracture: Followed by Dr Gaming; will be treated as outpatient Routine skin care as per nursing protocol Turn/reposition in bed Q 2 hours PT/OT to continue treatment PROPHYLAXIS: Stress ulcer prophylaxis: PPI DVT prophylaxis: SCD's; resume chronic anticoagulation as per Neurosurgery VAP bundle: Not Indicated. Disposition: ICU care for monitoring of lumbar drain Code Status: Full Code *Please bill 40 minutes of critical care time spent evaluating the patient, reviewing the d seng and formulating a plan exclusive of all other procedures. BRI Hoff 01/13/2017 lliott, BRI Sanchez - 01/12/2017 11:16 PM PDT Progress Notes by BRI Hoff at 01/12/17 3947 Author: BRI Hoff Service: Senior Staff Psychologist Author Type: Advanced Registered Nicky se Practitioner Filed: 01/12/17 6525 Date of Service: 01/12/172315 Status: Signed Food Service Helper: BRI Hoff (Advanced Registered Nurse Practitioner) [facility] Service: Senior Staff Psychologist Progress Note Jose Rafael Walker 66 y.o. Hospital Day: LOS: 5 days Post-Op Day: Day of Surgery Consulting Physicians Treatment Team: Consulting Physician: Mendez Morrison MD Consulting Physician: Jeovany Jennings MD Admitting Provider: Moni Dumont DO SUBJECTIVE Patient Summary: From Dr Dumont's H&P: The patient is a 66 y.o. male with significant past medical history of ankylosing spondylit is, diabetes type II, deep vein thrombosis, iron deficiency anemia, testicular hypofunction, obesity, hypertension, dyslipidemia, abdomen disorder, transient ischemic attack, non ambul atory ankylosing spondylitis, who presents to transfer from [facility] with a C7 fracture, left maxillary sinus fracture, thyroid mass and syncope. Main complaints at the [facility] facility were left sided face swelling, neck pain, confusion and difficulty remembe ring anything. Per history, patient woke up in a chair, went into the bathroom and found thi ngs in disarray. Granddaughter was then notified by neighbors that they heard a crashing berta nd earlier around 1:30. During the day patient had being a but was in the his usual state of health, came home and went to sleep on his recliner. He cannot remember anything th at happened, next thing that he was clear in his mind was his granddaughter asking questions . Patient denies any chest pain, shortness of breath, headache, dizziness, confusion, fever, chills or illness prior to his syncopal episode/ amnestic event. Reports chronic right shou lder pain. Reports neck pain with movement of his legs or any part of his body. He denies any dysphagi a. ED findings: C7 fracture, leukocytosis, hypokalemia, thyroid mass, left maxillary sinus fra cture [facility] ED treatment: Dilaudid, morphine, cyclobenzaprine From Dr Saravia's most recent progress note: 66-year-old gentleman with past medical history of ankylosing spondylitis, diabetes mellitu s type II on insulin, history of deep vein thrombosis, iron deficiency anemia, hypertension hyperlipidemia history of transient ischemic attack who had a fall in his bathroom and was t aken to the hospital with neck pain found to have C7 fracture, left maxillary sinus fracture , enlarged left thyroid lobe suggesting goiter a large nodule and patient does not recall th e circumstances of all though he admitted that he takes morphine which might have makes him loopy and had a fall because affect. Patient underwent C3-C4, 3-5, 5-6, 6-7, C7-T1, T1-T2 posterior pedicle L mass lesion by Dr. Rivera on 09 january and postoperatively patient was intubated for airways protection and transferred to ICU and was transferred back to the floor on 11 january. Patient had a syncope workup including echocardiogram which showed normal ejection fraction ,no significant valvular abnormalities and CT neck was negative for any stenosis, aneurysm or dissection ICU Timeline: 01/12: Admitted to ICU after placement of Lumbar drain by Neurosurgery due to CSF leak Events Overnight: Taken to OR by Dr Morrison for Lumbar drain placement SCHEDULED MEDICATIONS allopurinol 100 mg Oral Daily bisacodyl 10 mg Rectal Daily calcium carbonate-vitamin D 1 tablet Oral BID WC hydrochlorothiazide 25 mg Oral Daily insulin detemir 59 Units Subcutaneous BID insulin lispro (human) 6 Units Subcutaneous TID AC insulin lispro (human) 6-18 Units Subcutaneous Q4H levothyroxine 50 mcg Oral QAM AC lisinopril 10 mg Oral Daily morphine 60 mg Oral 2 times per day pantoprazole 40 mg Intravenous QAM AC sodium phosphate 45 mmol Intravenous Once zinc sulfate 220 mg Oral Daily CONTINUOUS INFUSIONS dextrose electrolyte-A 30 mL/hr at 01/12/171954 OBJECTIVE VITAL SIGNS Temp: [96.8 F (36 C)-98.2 F (36.8 C)] 98.2 F (36.8 C) Heart Rate: [66-75] 68 Resp: [16-23] 23 BP: (136-161)/(63-74) 159/74 mmHg Intake/Output Summary (Last 24 hours) at 01/12/17 2316 Last data filed at 01/12/17 2213 Gross per 24 hour Intake 920 ml Output 2755 ml Net -1835 ml EXAM GEN: awake, alert, oriented x3, appears uncomfortable due to pain NEURO: PERRLA, EOMI, no facial asymmetry, moves all extremities weakly GCS: 15 HEENT: sclerae clear, nonicteric, oral mmm, pink, no exudates NECK: supple, trachea midline, C Collar in place CV: RRR, S1/S2, no murmur, rub or gallop, peripheral pulses palpable, cap refill brisk LUNGS: clear b/l, no wheezing, rales or rhonchi, symmetric chest expansion, even/unlabored respirations ABD: soft, nondistended, nontender to palpation, no masses, no hepatosplenomegaly EXTR: trace BLE edema, clubbing or cyanosis SKIN: warm, dry, no rash or mottling; no e/o skin breakdown over the occiput, scapulae, elb ows, sacrum or heels. Surgical incisions dressed LINES/TUBES: PIV X 2, Lumbar drain with clear CSF in collection bag DATA Recent Labs Lab 01/12/17 0558 01/11/17 0407 01/10/17 0433 01/09/17 1825 01/07/17 0608 01/06/17 2335 WBC 20.42* 25.36* 15.91* 18.34* -- 9.71 11.78* RBC 3.89* 3.94* 3.93* 4.17* -- 5.07 4.78 HGB 11.2* 11.3* 11.3* 12.3* < > 14.6 13.9 HCT 33.4* 33.5* 33.7* 35.6* < > 43.1 40.2 MCV 85.7 85.2 85.8 85.4 -- 85.0 84.0 MCH 28.7 28.7 28.7 29.6 -- 28.8 29.0 MCHC 33.5 33.7 33.5 34.7 -- 33.9 34.5 RDW 44.6 43.3 44.6 43.3 -- 44.2 44.6 PLT 254 222 220 219 -- 243 240 MPV 8.1 8.1 8.1 7.5 -- 7.7 7.1 BANDSABS -- 1.78* 1.11* -- -- -- -- NEUTROABS -- -- -- 17.49* -- 7.34 8.86* LYMPHSABS -- -- -- 0.53* -- 1.37 1.86 MONOSABS -- -- -- 0.28 -- 0.78 0.86* BASOSABS -- -- -- 0.03 -- 0.06 0.07 EOSABS -- -- -- 0.01 -- 0.16 0.13 MORPH RBC AND PLT MORPHOLOGY APPEAR NORMAL RBC AND PLT MORPHOLOGY APPEAR NORMAL RBC AND PLT MORPHOLOGY APPEAR NORMAL RBC AND PLT MORPHOLOGY APPEAR NORMAL < > -- -- < > = values in this interval not displayed. Recent Labs Lab 01/12/17 0558 01/11/17 0407 01/10/17 1607 01/10/17 0433 01/09/17 1825 01/06/17 2335 NA 135 137 -- 142 138 < > 137 K 4.7 4.8 3.8 3.7 5.0* < > 3.4* CL 97* 103 -- 108 105 < > 102 CO2 31 27 -- 25 26 < > 25 ANIONGAP 12 12 -- 13 11 < > 14 GLUF 230* 185* -- 166* 270* < > 182* BUN 19 13 -- 14 15 < > 12 CREATININE 0.8 0.8 -- 0.8 0.96 < > 1.0 BCR 24 16 -- 18 16 < > 12 CA 9.7 8.6 -- 7.8* 7.1* < > 8.3* ALB -- -- -- -- 2.7* -- 3.0* GLOB -- -- -- -- 3.2 -- 3.8 AG -- -- -- -- 0.8* -- 0.8* PROT -- -- -- -- 5.9* -- 6.8 BILITOT -- -- -- -- 1.1 -- 1.0 ALT -- -- -- -- 42 -- 45 AST -- -- -- -- 43 -- 32 EGFR >60 >60 -- >60 >60 < > >60 PHOS 2.9 2.6 3.9 1.8* 3.6 < > -- MG 2.3 2.5* 2.0 2.4 2.2 < > -- < > = values in this interval not displayed. Recent Labs Lab 01/12/17 0558 01/11/17 0407 01/10/17 0433 INR 1.1 1.1 1.1 IMAGING Cta Head Neck 01/09/2017 1. Right T1 posterior elements screw extends into the right T1-T2 neural forame n. 2. Small tentorial subdural hematoma bilaterally. 3. Probable postoperative pneumocepha lidia, as above. 4. No evidence of hemodynamically significant arterial stenosis in the neck or head. 5. C6-C7 fracture, as above, with intact fusion from C3 to T2, in this patient wi th evidence of ankylosing spondylitis. Electronically signed by Arthur Rodriguez MD on 2016 6:49 PM X-ray Shoulder Right Complete 2+v 01/07/2017 FINDINGS/ IMPRESSION: 1. No acute fracture or dislocation. 2. 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 3. Osteopenia. Electronicall y signed by Cierra López on 01/07/2017 1:49 PM X-ray Knee Limited Left 01/07/2017 No acute fracture or dislocation. No bone, joint or soft tissue abnormality. Kristy ctronically signed by Omkar Lopes MD on 01/07/2017 6:58 AM X-ray Knee Limited Right 01/07/2017 No acute fracture or dislocation. No bone, joint or soft tissue abnormality. Kristy ctronically signed by Omkar Lopes MD on 01/07/2017 6:57 AM Cta Neck With Iv Contrast 01/07/2017 1. No evidence of significant hemodynamic stenosis, aneurysm, or dissection inv olving the carotid arteries in the neck. 2. Depressed fracture of the anterior wall of the left maxillary sinus with overlying soft tissue swelling and emphysema. Electronically malachi d by Raf Donnelly on 01/07/2017 11:[address] Cervical Spine Without Contrast 01/12/2017 1. Previously seen surgical drain has been removed. 2. Right-sided pedicle scr ew at C7 traverses the superior margin of the C7-T1 neural foramen and could affect the exit ing right C8 nerve root. Right-sided pedicle screw at T1 traverses the T1-2 neural foramen centrally and may be compressing the exiting right T1 nerve root. These findings are unchan ged from the previous exam. 3. All other transpedicular screws are in satisfactory position . 4. Enlarged left thyroid lobe suggesting goiter or large nodule. 5. Atrophy of the right submandibular gland with a 6 mm sialolith seen within the gland. Mri Brain Without Contrast 01/10/2017 Intraventricular and subarachnoid gas, the appearance is similar to the prior CT . No evidence of intracranial hemorrhage or recent infarct. RADIA Electronically signed by Artemio Riddle MD on Jan 10 2017 12:26AM Referring Provider Line: [phone] ID: [id number] Mri Cervical Spine Without Contrast 01/10/2017 Posterior instrumentation from C3-T2. Interval widening of the C6-C7 disk space, this is at the level of fracture in this patient with ankylosing spondylitis. Examination s lightly limited by the implanted hardware, however, the central canal is patent throughout. No evidence of intraspinal hematoma. Region of T2 signal prolongation and mild swelling with in the right cervical cord centered at the C3-C4 level. Finding is new when compared to the prior MR and is consistent with recent injury. RADIA The above findings were discussed with Dr. Parikh by Dr. Artemio Riddle at 00:42 hrs on 01/10/17. Electronically signed by Artemio Riddle MD on Jan 10 2017 12:50AM Referring Provider Line: [phone] ID: [id number] Mri C-spine Without Contrast 01/07/2017 Left thyroid mass measures up to 3.8 cm. Consider correlation with thyroid ultra sound. Changes of ankylosing spondylitis throughout the cervical and upper thoracic spine. T here is a small amount of prevertebral soft tissue edema. 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 T2 signal prolongation within the disk s pace at C6-C7. Findings represent nondisplaced fracture through the ankylosed spine at this level. RADIA Electronically signed by Artemio Riddle MD on Jan 07 2017 1:18AM Referring Prov ider Line: [phone] ID: [id number] Xr Chest 1 View 01/09/2017 1. Status post intubation and nasogastric tube placement, as above. 2. Increas ing bilateral basilar subsegmental atelectasis. 3. Status post spine fusion, with hardware partially visualized. Ct Facial Bones 01/07/2017 1. Acute displaced fracture of the anterolateral wall of the left maxillary sinu s (series 4 image 30, series 3 image 70). The fracture fragment is displaced superomedially and posteriorly into the left maxillary sinus. 2. Given the left maxillary sinus wall fractu re, there is now resulting soft tissue emphysema within the left submandibular space, left m asticator space, and left periorbital soft tissues. 3. 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 No evidence of acute fracture or malalignment involving the spine. However, given the ankylosed spine MRI of the spine is recommended, as clinically indicated, to further evalua te. RADIA Electronically signed by Divya Prieto MD on Jan 07 2017 1:30AM Referring Pro vider Line: [phone] ID: [id number] Echo Cardiac Adult Limited 01/07/2017 1. The left ventricle is normal in size, mild concentric hypertrophy and hyperdy namic systolic function EF >70%. 2. The right ventricle is moderately enlarged with normal s ystolic function. 3. The aortic valve is mildly calcified with mild aortic regurgitation. 4. There is no pericardial effusion. X-ray C-arm Fluoro Over 1 Hour 01/09/2017 1. Procedural films, as above. Ct Thoracic Lumbar Without Contrast 01/07/2017 1. Diffuse ankylosis of the spine. No evidence of acute fracture or traumatic s ubluxation. If there is continued concern for acute fracture or ligamentous injury, consider further evaluation with MRI. 2. Minimal compression of the superior endplate of L1 which i s age indeterminate. LEM LIST Principal Problem: Closed nondisplaced fracture of seventh cervical vertebra (HCC) Active Problems: Maxillary fracture, left side, initial encounter for open fracture Antiphospholipid syndrome (HCC) Controlled type 2 diabetes mellitus with hyperglycemia (HCC) Syncope and collapse Thyroid mass Resolved Problems: * No resolved hospital problems. * ASSESSMENT & PLAN NEURO: CSF Leak: Lumbar drain placed by Neurosurgery 01/12. Orders to drain 15mls of CSF Q 1 h our as per NS and keep HO 60-70 degrees. Okay to ambulate with drain off as per NS. Monito r neuro status closely Cervical Fracture: S/P fusion C3 to T2. Remains in C collar. Post surgical management by NS CAM ICU each shift CV: Hypertension: Currently treated with home dose lisinopril; monitor closely PULM: No acute pulmonary issues; monitor closely GI/NUTRITION: Diabetic Diet RENAL/LYTES: Renal function appears to be at baseline; monitor renal function closely Avoid nephrotoxins Monitor electrolytes and replace as per ICU protocol ID: Afebrile with WBC trending down and no Bandemia. 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 Disposition: ICU care for monitoring of lumbar drain Code Status: Full Code *Please bill 45 minutes of critical care time spent evaluating the patient, reviewing the d seng and formulating a plan exclusive of all other procedures. BRI Hoff 01/12/2017 onversion Transa ction, Provider Unknown - 01/12/2017 4:50 PM PDT Therapy Progress Note by REGINALDO Swan at 01/12/171649 Author: REGINALDO Swan Service: (none) Author Type: Massage Therapist Filed: 01/12/171649 Date of Service: 01/12/171649 Status: Signed Food Service Helper: REGINALDO Swan (Massage Therapist) 01/12/171649 Massage Therapy Interventions Locations Back;Neck;Shoulder Massage Therapy Technique Effleurage;Petrissage;Danish massage Response to treatment Decreased muscle tension Jossie Dias MD - 01/12/2017 2:53 PM PDTFormatting of this note might be different from the or iginal. Progress Notes by Jossie Saravia MD at 01/12/171452 Author: Jossie Saravia MD Service: Hospitalist Author Type: Physician Filed: 01/12/17 1504 Date of Service: 01/12/171452 Status: Signed Food Service Helper: Jossie Saravia MD (Physician) [facility] Service: Hospitalist Progress Note Jose Rafael Walker 66 y.o. [phone] [phone] male [facility] Hospital Day: LOS: 5 days Patient Summary and SUBJECTIVE: 66-year-old gentleman with past medical history of an kylosing spondylitis, diabetes mellitus type II on insulin, history of deep vein thrombosis, iron deficiency anemia, hypertension hyperlipidemia history of transient ischemic attack wh o had a fall in his bathroom and was taken to the hospital with neck pain found to have C7 f racture, left maxillary sinus fracture, enlarged left thyroid lobe suggesting goiter a large nodule and patient does not recall the circumstances of all though he admitted that he take s morphine which might have makes him loopy and had a fall because affect. Patient underwent C3-C4, 3-5, 5-6, 6-7, C7-T1, T1-T2 posterior pedicle L mass lesion by Dr. Rivera on 09 january and postoperatively patient was intubated for airways protection and transferred to ICU and was transferred back to the floor on 11 january. Patient had a syncope workup including echocardiogram which showed normal ejection fraction ,no significant valvular abnormalities and CT neck was negative for any stenosis, aneurysm or dissection Today when I went to see the patient he was complaining of neck and upper back pain at surg ical site 5-7 out of 10 and he able to ambulate in the hallway without any difficulty. Patie nt is complaining of constipation otherwise denied any nausea no vomiting no chest pain or s hortness of breath or any other complaint Scheduled Medications allopurinol 100 mg Oral Daily bisacodyl 10 mg Rectal Daily calcium carbonate-vitamin D 1 tablet Oral BID WC hydrochlorothiazide 25 mg Oral Daily insulin detemir 59 Units Subcutaneous BID insulin lispro (human) 6-18 Units Subcutaneous Q4H levothyroxine 50 mcg Oral QAM AC lisinopril 10 mg Oral Daily morphine 60 mg Oral 2 times per day pantoprazole 40 mg Intravenous QAM AC sodium phosphate 45 mmol Intravenous Once zinc sulfate 220 mg Oral Daily Continuous Infusions dextrose PRN Medications acetaminophen OR acetaminophen, carboxymethylcellulose, dextrose, dextrose, dextrose, d ocusate sodium OR docusate, fentaNYL OR fentaNYL, magnesium sulfate OR magnesium sulfate OR magnesium sulfate, morphine, nystatin, nystatin, ondansetron OR ondanset shanika, petrolatum, phosphorus OR sodium phosphate IVPB 20 mmol OR sodium phosphate IVP B 45 mmol, polyethylene glycol, potassium OR potassium OR potassium OR potassium chloride OR potassium chloride OR potassium chloride Allergy: Allergies Allergen Reactions Codeine Other (See Comments) unknown Januvia [Sitagliptin] Other (See Comments) angioedema Metformin Other (See Comments) Diarrhea Penicillins Other (See Comments) unknown Rosuvastatin Other (See Comments) unknown Sulfa Antibiotics Other (See Comments) Unknown Trimethoprim Other (See Comments) unknown OBJECTIVE Vital Signs: BP 161/70 mmHg | Pulse 71 | Temp(Src) 97.7 F (36.5 C) (Oral) | Resp 18 | Ht 1.778 m (5' 10") | Wt 118.6 kg (261 lb 7.5 oz) | BMI 37.52 kg/m2 | SpO2 97% Temp: [96.8 F (36 C)-98.7 F (37.1 C)] 97.7 F (36.5 C) (01/12 1156) BP: (136-161)/(62-70) 161/70 mmHg (01/12 115) Heart Rate: [71-81] 71 (01/12 115) Resp: [16-19] 18 (01/13 1156) SpO2: [94 %-99 %] 97 % (01/12 08) I&O Detailed Table: Intake/Output Summary (Last 24 hours) at 01/12/17 1453 Last data filed at 01/12/17 1153 Gross per 24 hour Intake 1370 ml Output 3650 ml Net -2280 ml Hemodynamics Last 24hrs: Examination: Constitutional: Alert and oriented to person, place, and time. Appears well-developed and w ell-nourished. Cardiovascular: Normal rate, regular rhythm, normal heart sounds and intact distal pulses. Exam reveals no gallop and no friction rub. No murmur heard. Pulmonary/Chest: Effort normal and breath sounds normal. No stridor. No respiratory distres s. no wheezes. no rales. exhibits no tenderness. Abdominal: Soft. Bowel sounds are normal. exhibits no distension and no mass. There is no t enderness. There is no rebound and no guarding. Musculoskeletal: Normal range of motion.exhibits no tenderness. exhibits no edema. Neurological: Alert and oriented to person, place, and time. Has normal reflexes. display s normal reflexes. No cranial nerve deficit. Exhibits normal muscle tone. Coordination norm al. Skin: Skin is warm and dry. No rash noted. No erythema. No pallor. Psychiatric: Has a normal mood and affect. Behavior is normal. Judgment normal. Laboratory: Glucose: Results Procedure Component Value Units Date/Time POCT glucose [[id number]] (Abnormal) Collected: 01/12/17 1214 GLUCOSE,POC SCREEN 157 (H) mg/dL Updated: 01/12/17 1216 Basic metabolic panel [[id number]] (Abnormal) Collected: 01/12/17 0558 Specimen Information: Blood Updated: 01/12/17 0719 SODIUM 135 mmol/L POTASSIUM 4.7 mmol/L CHLORIDE 97 (L) mmol/L CO2 31 mmol/L ANION GAP AGAP 12 mmol/L GLUCOSE 230 (H) mg/dL BUN 19 mg/dL CREATININE 0.8 mg/dL BUN/CREAT 24 CALCIUM 9.7 mg/dL EGFR >60 mL/min/1.73m2 Magnesium [[id number]] Collected: 01/12/1758 Specimen Information: Blood Updated: 01/12/17718 MAGNESIUM 2.3 mg/dL Phosphorus [[id number]] Collected: 01/12/1758 Specimen Information: Blood Updated: 01/12/17718 PHOSPHORUS 2.9 mg/dL CBC w/auto diff (reflex to manual) [[id number]] (Abnormal) Collected: 01/12/17557 Specimen Information: Blood Updated: 01/12/1716 WBC 20.42 (H) K/uL RBC 3.89 (L) M/uL HGB 11.2 (L) g/dL HCT 33.4 (L) % MCV 85.7 fl MCH 28.7 pg MCHC 33.5 g/dL RDW SD 44.6 fl PLT 254 K/uL MPV 8.1 fl DIFF TYPE MANUAL Neutrophils Manual 90 % Lymphocytes Manual 6 % Monocytes Manual 4 % Neutrophils Absolute 18.37 (H) K/uL Lymphocytes Absolute 1.23 K/uL Monocytes Absolute 0.82 (H) K/uL MORPHOLOGY RBC AND PLT MORPHOLOGY APPEAR NORMAL Protime-INR [[id number]] Collected: 01/12/1758 Specimen Information: Blood Updated: 01/12/17 0640 INR 1.1 POCT glucose [[id number]] (Abnormal) Collected: 01/12/17 0539 GLUCOSE,POC SCREEN 287 (H) mg/dL Updated: 01/12/17 0554 POCT glucose [[id number]] (Abnormal) Collected: 01/11/171999 GLUCOSE,POC SCREEN 161 (H) mg/dL Updated: 01/11/17 2006 POCT glucose [[id number]] (Abnormal) Collected: 01/11/17 1427 GLUCOSE,POC SCREEN 166 (H) mg/dL Updated: 01/11/17 1709 Sputum cult w/ gram stain [[id number]] Collected: 01/09/17 1844 Specimen Information: Nasopharyngeal from Sputum Updated: 01/11/17 1117 Specimen Description SPUTUM GRAM STAIN GREATER THAN 10 WBCS/LPF GRAM STAIN LESS THAN 10 SEC/LPF GRAM STAIN 1+ GRAM STAIN GRAM POSITIVE COCCI CULTURE 1+ NORMAL UPPER RESPIRATORY BILLY POCT glucose [[id number]] (Abnormal) Collected: 01/11/17 1006 GLUCOSE,POC SCREEN 206 (H) mg/dL Updated: 01/11/17 1010 POCT glucose [[id number]] (Abnormal) Collected: 01/11/17 0626 GLUCOSE,POC SCREEN 186 (H) mg/dL Updated: 01/11/17 0637 Basic metabolic panel [[id number]] (Abnormal) Collected: 01/11/17406 Specimen Information: Blood Updated: 01/11/17521 SODIUM 137 mmol/L POTASSIUM 4.8 mmol/L CHLORIDE 103 mmol/L CO2 27 mmol/L ANION GAP AGAP 12 mmol/L GLUCOSE 185 (H) mg/dL BUN 13 mg/dL CREATININE 0.8 mg/dL BUN/CREAT 16 CALCIUM 8.6 mg/dL EGFR >60 mL/min/1.73m2 Magnesium [[id number]] (Abnormal) Collected: 01/11/17406 Specimen Information: Blood Updated: 01/11/17521 MAGNESIUM 2.5 (H) mg/dL Phosphorus [[id number]] Collected: 01/11/17406 Specimen Information: Blood Updated: 01/11/17 0522 PHOSPHORUS 2.6 mg/dL CBC w/auto diff (reflex to manual) [[id number]] (Abnormal) Collected: 01/11/17406 Specimen Information: Blood Updated: 01/11/17511 WBC 25.36 (H) K/uL RBC 3.94 (L) M/uL HGB 11.3 (L) g/dL HCT 33.5 (L) % MCV 85.2 fl MCH 28.7 pg MCHC 33.7 g/dL RDW SD 43.3 fl PLT 222 K/uL MPV 8.1 fl DIFF TYPE MANUAL Neutrophils Manual 83 % Bands 7 % Lymphocytes Manual 4 % Monocytes Manual 6 % Neutrophils Absolute 21.05 (H) K/uL Bands Manual 1.78 (H) K/uL Lymphocytes Absolute 1.01 K/uL Monocytes Absolute 1.52 (H) K/uL MORPHOLOGY RBC AND PLT MORPHOLOGY APPEAR NORMAL Protime-INR [[id number]] Collected: 01/11/17406 Specimen Information: Blood Updated: 01/11/17 0445 INR 1.1 POCT glucose [[id number]] (Abnormal) Collected: 01/11/17 0209 GLUCOSE,POC SCREEN 241 (H) mg/dL Updated: 01/11/17 0236 POCT glucose [[id number]] (Abnormal) Collected: 01/10/17 2222 GLUCOSE,POC SCREEN 291 (H) mg/dL Updated: 01/10/17 2226 POCT glucose [[id number]] (Abnormal) Collected: 01/10/17 1844 GLUCOSE,POC SCREEN 209 (H) mg/dL Updated: 01/10/17 1857 POCT glucose [[id number]] (Abnormal) Collected: 01/10/17 1503 GLUCOSE,POC SCREEN 116 (H) mg/dL Updated: 01/10/17 1857 Magnesium [[id number]] Collected: 01/10/17 160 Specimen Information: Blood Updated: 01/10/17 1631 MAGNESIUM 2.0 mg/dL Phosphorus [[id number]] Collected: 01/10/17 160 Specimen Information: Blood Updated: 01/10/17 1631 PHOSPHORUS 3.9 mg/dL Potassium [[id number]] Collected: 01/10/17 160 Specimen Information: Blood Updated: 01/10/17 1631 POTASSIUM 3.8 mmol/L POCT glucose [[id number]] (Abnormal) Collected: 01/10/17 0935 GLUCOSE,POC SCREEN 127 (H) mg/dL Updated: 01/10/17 1312 POCT glucose [[id number]] (Abnormal) Collected: 01/10/17 1258 GLUCOSE,POC SCREEN 119 (H) mg/dL Updated: 01/10/17 1312 POCT glucose [[id number]] (Abnormal) Collected: 01/10/17 0833 GLUCOSE,POC SCREEN 121 (H) mg/dL Updated: 01/10/17 1312 POCT glucose [[id number]] (Abnormal) Collected: 01/10/17 0728 GLUCOSE,POC SCREEN 121 (H) mg/dL Updated: 01/10/17 0731 CBC w/auto diff (reflex to manual) [[id number]] (Abnormal) Collected: 01/10/17 0433 Specimen Information: Blood Updated: 01/10/17 0703 WBC 15.91 (H) K/uL RBC 3.93 (L) M/uL HGB 11.3 (L) g/dL HCT 33.7 (L) % MCV 85.8 fl MCH 28.7 pg MCHC 33.5 g/dL RDW SD 44.6 fl PLT 220 K/uL MPV 8.1 fl DIFF TYPE MANUAL Neutrophils Manual 85 % Bands 7 % Lymphocytes Manual 4 % Monocytes Manual 4 % Neutrophils Absolute 13.52 (H) K/uL Bands Manual 1.11 (H) K/uL Lymphocytes Absolute 0.64 (L) K/uL Monocytes Absolute 0.64 K/uL MORPHOLOGY RBC AND PLT MORPHOLOGY APPEAR NORMAL Glycohemoglobin A1c [[id number]] (Abnormal) Collected: 01/10/17432 Specimen Information: Blood Updated: 01/10/17644 HEMOGLOBIN A1C 7.3 (H) % ESTIMATED AVG GLUCOSE 163 mg/dL Type and screen [[id number]] Collected: 01/09/17442 Specimen Information: Blood Updated: 01/10/17643 ABO/RH(D) A POSITIVE ANTIBODY SCREEN NEGATIVE ARM BAND NUMBER [id number] UNIT NUMBER [id number] BLOOD COMPONENT TYPE LEUKODEPLETED PC UNIT DIVISION 00 STATUS OF UNIT ISSUED,FINAL TRANSFUSION STATUS OK TO TRANSFUSE CROSSMATCH RESULT COMPATIBLE UNIT NUMBER [id number] BLOOD COMPONENT TYPE LEUKODEPLETED PC UNIT DIVISION 00 STATUS OF UNIT ISSUED,FINAL TRANSFUSION STATUS OK TO TRANSFUSE CROSSMATCH RESULT -- Result: COMPATIBLE Testing performed at [facility] [place];[address] [place] [address] UNIT NUMBER [id number] BLOOD COMPONENT TYPE LEUKODEPLETED PC UNIT DIVISION 00 STATUS OF UNIT ALLOCATED TRANSFUSION STATUS OK TO TRANSFUSE CROSSMATCH RESULT COMPATIBLE UNIT NUMBER [id number] BLOOD COMPONENT TYPE LEUKODEPLETED PC UNIT DIVISION 00 STATUS OF UNIT ALLOCATED TRANSFUSION STATUS OK TO TRANSFUSE CROSSMATCH RESULT COMPATIBLE Prepare Plasma (Blood Bank) [[id number]] Collected: 01/09/17 1040 Additional comment: ORDER RECEIVED IN BLOOD BANK. Updated: 01/10/17 0644 UNIT NUMBER [id number] BLOOD COMPONENT TYPE PLASMA,THAWED 5 DAY UNIT DIVISION 00 STATUS OF UNIT ISSUED,FINAL TRANSFUSION STATUS OK TO TRANSFUSE UNIT NUMBER [id number] BLOOD COMPONENT TYPE PLASMA,THAWED 5 DAY UNIT DIVISION 00 STATUS OF UNIT ISSUED,FINAL TRANSFUSION STATUS -- Result: OK TO TRANSFUSE Testing performed at [facility] [place];[address] [place] [address] Basic metabolic panel [[id number]] (Abnormal) Collected: 01/10/17432 Specimen Information: Blood Updated: 01/10/17638 SODIUM 142 mmol/L POTASSIUM 3.7 mmol/L CHLORIDE 108 mmol/L CO2 25 mmol/L ANION GAP AGAP 13 mmol/L GLUCOSE 166 (H) mg/dL BUN 14 mg/dL CREATININE 0.8 mg/dL BUN/CREAT 18 CALCIUM 7.8 (L) mg/dL EGFR >60 mL/min/1.73m2 Magnesium [[id number]] Collected: 01/10/17432 Specimen Information: Blood Updated: 01/10/17638 MAGNESIUM 2.4 mg/dL Phosphorus [[id number]] (Abnormal) Collected: 01/10/17432 Specimen Information: Blood Updated: 01/10/17638 PHOSPHORUS 1.8 (L) mg/dL POCT glucose [[id number]] (Abnormal) Collected: 01/10/17452 GLUCOSE,POC SCREEN 157 (H) mg/dL Updated: 01/10/17632 POCT glucose [[id number]] (Abnormal) Collected: 01/10/17622 GLUCOSE,POC SCREEN 163 (H) mg/dL Updated: 01/10/17632 POCT glucose [[id number]] (Abnormal) Collected: 01/10/17 0349 GLUCOSE,POC SCREEN 164 (H) mg/dL Updated: 01/10/17632 POCT glucose [[id number]] (Abnormal) Collected: 01/10/17 0246 GLUCOSE,POC SCREEN 177 (H) mg/dL Updated: 01/10/17632 POCT glucose [[id number]] (Abnormal) Collected: 01/10/17 0143 GLUCOSE,POC SCREEN 211 (H) mg/dL Updated: 01/10/17632 POCT glucose [[id number]] (Abnormal) Collected: 01/10/17 0039 GLUCOSE,POC SCREEN 210 (H) mg/dL Updated: 01/10/17632 Protime-INR [[id number]] Collected: 01/10/17432 Specimen Information: Blood Updated: 01/10/17 0509 INR 1.1 POCT glucose [[id number]] (Abnormal) Collected: 01/09/17 2335 GLUCOSE,POC SCREEN 274 (H) mg/dL Updated: 01/10/17 0016 POCT glucose [[id number]] (Abnormal) Collected: 01/09/172222 GLUCOSE,POC SCREEN 290 (H) mg/dL Updated: 01/10/17 001 Magnesium [[id number]] Collected: 01/09/171824 Specimen Information: Blood Updated: 01/09/172024 MAGNESIUM 2.2 mg/dL Phosphorus [[id number]] Collected: 01/09/171824 Specimen Information: Blood Updated: 01/09/172024 PHOSPHORUS 3.6 mg/dL MRSA by PCR [[id number]] Collected: 01/09/171854 Specimen Information: Nasopharyngeal from Nasopharyngeal Culture Updated: 01/09/17 SOURCE NARES(NOSE) MRSA PCR NEGATIVE Comprehensive metabolic panel [[id number]] (Abnormal) Collected: 01/09/171824 Specimen Information: Blood Updated: 01/09/171855 SODIUM 138 mmol/L POTASSIUM 5.0 (H) mmol/L CHLORIDE 105 mmol/L CO2 26 mmol/L ANION GAP AGAP 11 mmol/L GLUCOSE 270 (H) mg/dL BUN 15 mg/dL CREATININE 0.96 mg/dL BUN/CREAT 16 CALCIUM 7.1 (L) mg/dL TOTAL PROTEIN 5.9 (L) g/dL Albumin 2.7 (L) g/dL GLOBULIN 3.2 g/dL A/G 0.8 (L) TBIL 1.1 mg/dL ALK PHOS 61 U/L AST 43 U/L ALT 42 U/L EGFR >60 mL/min/1.73m2 Calcium, ionized [[id number]] (Abnormal) Collected: 01/09/171824 Specimen Information: Blood Updated: 01/09/171854 CA++ 0.98 (L) mmol/L pH 7.367 CBC W/Auto Diff (Reflex to Manual) [[id number]] (Abnormal) Collected: 01/09/171824 Specimen Information: Blood Updated: 01/09/171854 WBC 18.34 (H) K/uL RBC 4.17 (L) M/uL HGB 12.3 (L) g/dL HCT 35.6 (L) % MCV 85.4 fl MCH 29.6 pg MCHC 34.7 g/dL RDW SD 43.3 fl PLT 219 K/uL MPV 7.5 fl DIFF TYPE AUTOMATED NEUTROPHILS 95.37 % LYMPHOCYTES 2.90 % MONOCYTES 1.55 % EOSINOPHILS 0.03 % BASOPHILS 0.15 % NEUTROPHILS ABS 17.49 (H) K/uL LYMPHOCYTES ABS 0.53 (L) K/uL MONOCYTES ABS 0.28 K/uL EOSINOPHILS ABS 0.01 K/uL BASOPHILS ABS 0.03 K/uL MORPHOLOGY RBC AND PLT MORPHOLOGY APPEAR NORMAL Diff Comment Result: SLIDE SCANNED, AGREES WITH AUTOMATED RESULTS. POCT glucose [[id number]] (Abnormal) Collected: 01/09/17 1749 GLUCOSE,POC SCREEN 241 (H) mg/dL Updated: 01/09/17 1753 POC arterial CG8+ [[id number]] (Abnormal) Collected: 01/09/17 1459 pH, Art 7.335 (L) Updated: 01/09/17 1502 POC PCO2 45 mmHg POC p02 201 (H) mmHg POC HCO3 24 mmol/L POC TCO2 25 mEq/L POC BASE DEFICIT 2 mmol/L POC S02 100 (H) % POC SODIUM 139 mEq/L POC POTASSIUM 4.3 mEq/L POC IONIZED CALCIUM 0.93 (L) mmol/L POC GLUCOSE 238 (H) mg/dL POC HCT 36 (L) % POC HGB 12.2 (L) g/dL CBC: Lab Results Component Value Date WBC 20.42* 01/12/2017 RBC 3.89* 01/12/2017 HGB 11.2* 01/12/2017 HGB 12.2* 01/09/2017 HCT 33.4* 01/12/2017 HCT 36* 01/09/2017 MCV 85.7 01/12/2017 MCH 28.7 01/12/2017 MCHC 33.5 01/12/2017 RDW 44.6 01/12/2017 PLT 254 01/12/2017 MPV 8.1 01/12/2017 DIFFTYPE MANUAL 01/12/2017 CMP: Lab Results Component Value Date NA 135 01/12/2017 K 4.7 01/12/2017 K 4.3 01/09/2017 CL 97* 01/12/2017 CO2 31 01/12/2017 ANIONGAP 12 01/12/2017 GLUF 230* 01/12/2017 BUN 19 01/12/2017 CREATININE 0.8 01/12/2017 BCR 24 01/12/2017 CA 9.7 01/12/2017 PROT 5.9* 01/09/2017 ALB 2.7* 01/09/2017 GLOB 3.2 01/09/2017 BILITOT 1.1 01/09/2017 ALP 61 01/09/2017 AST 43 01/09/2017 ALT 42 01/09/2017 EGFR >60 01/12/2017 Magnesium: Lab Results Component Value Date MG 2.3 01/12/2017 Phosphorus: Lab Results Component Value Date PHOS 2.9 01/12/2017 PT/INR: Lab Results Component Value Date INR 1.1 01/12/2017 Last 3 Troponin: Lab Results Component Value Date TROPONINI <0.020 01/07/2017 TROPONINI <0.020 01/07/2017 ABG: Lab Results Component Value Date POCPH 7.323* 01/09/2017 POCPCO 46* 01/09/2017 POCPO2 110* 01/09/2017 POCHCO 24 01/09/2017 POCTCO2 25 01/09/2017 POCBD 2 01/09/2017 POCSO2 98 01/09/2017 Cta Head Neck 01/09/2017 JOSE RAFAEL Vega WALKER 1950 66 years Male CTA HEAD NECK W WO CONTRAST 01/09/2017 5:5 7 PM INDICATION: Status post cervical spinal fusion. Ankylosing spondylitis. Weakness. IRVING RISON: Neck CT January 07, 2017. TECHNIQUE: 5-mm axial pre-contrast and post-contrast images of the head were acquired from the foramen magnum through the cranial vertex. Axial 0.625-mm im ages were acquired from the skull base to the cranial vertex and then axial 1.25 mm arterial phase images were acquired through the neck according to a CT angiography protocol. Multipl saray CT angiographic MIP reconstructions were performed. The data set was also examined with [employer] 3D software for evaluation of the cerebral vasculature. Automated exposure contro l utilized. IV contrast: 100 mL IsoVue 370 FINDINGS: CT HEAD: Extra-axial pneumocephalus, an terior to the joanie, and the basilar cisterns, and the right sylvian fissure, in the interhem ispheric fissure, and the left ventricle. No acute infarct is seen. A small amount of subdur al blood is seen in the bilateral tentorial regions on the noncontrast study. No intracrania l mass or hydrocephalus is observed. No orbital abnormalities are seen. An anterior left max illary sinus wall fracture is again seen. Hematomas overlie the orbits anteriorly. Mucosal t hickening is present within the bilateral maxillary sinuses with trace dependent fluid in th e maxillary sinuses. Trace dependent fluid is seen in the frontal sinuses. CT ANGIOGRAM HEAD : The vertebral arteries and basilar arteries are patent. The basilar artery and basilar art erial branches including the posterior cerebral arteries are patent. The internal carotid ar teries, middle cerebral, and anterior cerebral arteries are patent. No intracranial arterial aneurysm is found. CTA NECK: A standard three-vessel aortic arch is seen. The innominate ar sybil, subclavian arteries, bilateral vertebral arteries, and bilateral common carotid arteri es are widely patent. The proximal right ICA measures 9.6 mm diameter, within normal referen ce measurement of 9.6 mm corresponding to a 0% NASCET stenosis. The proximal left ICA measur es 8.7 mm diameter with a normal reference measurement of 8.7 mm corresponding to a 0% NASCE T stenosis. The external carotid arteries are widely patent. CT NECK: There is evidence of p osterior fusion from C3 to T2. The hardware is intact. The right T1 posterior element screws extends into the right T1-T2 neural foramen, perhaps best seen on image 84, series 27, and image 21 series 24. Otherwise, no evidence of hardware encroachment in the neural foramina o r spinal canal. A fracture is present at C6-C7, with anterior intervertebral displacement me asuring 10 mm. This fracture extends posteriorly through the posterior elements. There is un changed evidence of ankylosing spondylitis with ankylosis of the anterior vertebral column. Surgical drainage catheter posterior to the operative site with some postoperative gas. An e ndotracheal tube is present, well-positioned. 01/09/2017 1. Right T1 posterior elements screw extends into the right T1-T2 neural forame n. 2. Small tentorial subdural hematoma bilaterally. 3. Probable postoperative pneumocepha lidia, as above. 4. No evidence of hemodynamically significant arterial stenosis in the neck or head. 5. C6-C7 fracture, as above, with intact fusion from C3 to T2, in this patient wi evidence of ankylosing spondylitis. Electronically signed by Arthur Rordiguez MD on 2016 6:49 PM X-ray Chest 2 View Frontal & Lateral 01/06/2017 This is a non-reportable procedure without a radiologist report and is used for image storage only X-ray Shoulder Right Complete 2+v 01/07/2017 JOSE RAFAEL Vega COPAKE 1950 XR SHOULDER RIGHT 01/07/2017 1:46 PM INDICATION: Pain CO MPARISON: None. TECHNIQUE: Right shoulder series, 3 views Limitations: Technique. 01/07/2017 FINDINGS/ IMPRESSION: 1. No acute fracture or dislocation. 2. 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 3. Osteopenia. Electronicall y signed by Cierra López on 01/07/2017 1:49 PM X-ray Knee Limited Left 01/07/2017 JOSE RAFAEL Vega COPAKE 1950 XR KNEE LIMITED LEFT 01/07/2017 4:09 AM INDICATION: Trau ma, fall. COMPARISON: None TECHNIQUE: Left knee series, 3 views 01/07/2017 No acute fracture or dislocation. No bone, joint or soft tissue abnormality. Kristy ctronically signed by Omkar Lopes MD on 01/07/2017 6:58 AM X-ray Knee Limited Right 01/07/2017 JOSE RAFAEL Vega COPAKE 1950 XR KNEE LIMITED RIGHT 01/07/2017 2:58 AM INDICATION: Kne e pain. COMPARISON: None TECHNIQUE: Right knee series, 2 views. 01/07/2017 No acute fracture or dislocation. No bone, joint or soft tissue abnormality. Kristy ctronically signed by Omkar Lopes MD on 01/07/2017 6:[address] Head Without Contrast 01/06/2017 This is a non-reportable procedure without a radiologist report and is used for image storage only Cta Neck With Iv Contrast 01/07/2017 JOSE RAFAEL Vega COPAKE 1950 66 years Male CTA NECK W WO CONTRAST 01/07/2017 10:11 AM HISTORY: Trauma COMPARISON: CT head 01/06/2017 TECHNIQUE: Axial 1.25 mm arterial phase imag es were acquired through the neck according to a CT angiography protocol. Multiplanar CT an giographic MIP reconstructions were performed from the arterial phase data set by the CT liu hnologist. Dose reduction techniques were used including automated exposure control, iterat larry reconstruction technique, and/or automated adjustable mAs based on patient size. IV cont rast: 100 mL IsoVue 370 FINDINGS: A large thyroid nodule is present on the left measuring up to 3.7 cm in size. The right common carotid artery is patent from its origin to its bifurca tion, without evidence of significant hemodynamic stenosis or dissection. The right internal carotid artery is patent from its origin through the neck. There is mild calcified plaque i nvolving the proximal right internal carotid artery, without significant stenosis. The left common carotid artery is patent from its origin to the bifurcation, without significant hemo dynamic stenosis or evidence of aneurysm or dissection. The left internal carotid artery is widely patent through the neck. There is mild calcified atherosclerosis involving the proxim al left internal carotid artery, without significant hemodynamic stenosis. The vertebral art eries are patent bilaterally and codominant without evidence of dissection. Depressed fractu re the anterior wall of the left maxillary sinus is demonstrated with overlying soft tissue swelling and emphysema. There is subcutaneous gas within the soft tissues of the left cheek as well extending into the cellophane wrapping examiner space Fracture is depressed approximately 6 mm. There is an air-fluid level within the left maxillary sinus which is hyperdense likely representin g hemorrhage. External note is made of pseudoarticulation of the coracoid processes with the clavicles bilaterally with the appearance of erosive changes (series 6B, image 57). There i s ankylosis of the cervical spine also noted. 01/07/2017 1. No evidence of significant hemodynamic stenosis, aneurysm, or dissection inv olving the carotid arteries in the neck. 2. Depressed fracture of the anterior wall of the left maxillary sinus with overlying soft tissue swelling and emphysema. Electronically malachi d by Raf Donnelly on 01/07/2017 11:[address] Cervical Spine Without Contrast 01/12/[address] CERVICAL SPINE WO CONTRAST 01/12/2017 8:13 AM HISTORY: 66 year s. Male. Closed nondisplaced fracture of 7th cervical vertebrae, unspecified fracture morp hology, initial encounter. Status post cervical spinal fusion. TECHNIQUE: Axial 1.25-mm im ages were acquired through the cervical region. Coronal and sagittal reconstructions were p erformed. Radiation dose reduction was performed with automated exposure control. COMPARISO N: CTA head and neck 01/09/2017, CT thoracic and lumbar spine 01/07/2017, MRI cervical spin e 01/09/2017. Outside CT cervical spine performed at [facility] 01/06/2017 FINDIN GS: VERTEBRAL BODIES: The vertebral bodies are normal in height. The patient has known dif fuse ankylosis of the entire spine from the craniocervical junction to the sacrum. On this examination, diffuse osseous fusion of the entire cervical spine including the vertebral bod ies, facets and spinous processes is noted due to extensive calcification of all of the liga mentous structures. At the site of fracture at C6-7 there is slight widening of the disc sp andres and the anterior longitudinal ligament is not ossified. The horizontally oriented fract ures through the fused facets at the C6-7 level are clearly visualized and are slightly dist racted measuring 2 mm on the left and 1 mm on the right. PRIOR SURGICAL CHANGES: The patien t has undergone posterior fusion with translaminar screws at C3-C4 and C5 and transpedicular screws bilaterally at C7, T1 and T2 on the left. The screws are linked vertically with par aspinal rods. The rods are intact. The right-sided C7 pedicle screw traverses the superior margin of the right C7-T1 neural foramen and may be affecting the exiting right C8 nerve ro ot. The T1 screw is laterally angled and traverses the center of the right T1-T2 neural for amen and may be compressing the exiting right T1 nerve root. CRANIOCERVICAL JUNCTION: The f oramen magnum is patent. Clivus appears normal. The dens is normal. The occipitoatlantal joints are normal. The atlantoaxial joints are normal. The atlantodental joint is normal. INTERVERTEBRAL DISKS: C2-3 AND BELOW: The discs are normal in height and have normal poste rior contours. The canal and neural foramina are patent at all observed levels. The facet joints are fused at all levels. PARASPINAL SOFT TISSUES: Postoperative air is seen in the p osterior paraspinal soft tissues. The previously seen surgical drain has been removed. Bon e graft material is seen surrounding the posterior instrumentation. SOFT TISSUES OF THE NECK : The visualized soft tissues of the anterior neck do not demonstrate obvious mass or adeno june. The left thyroid lobe is enlarged suggesting a large nodule or goiter. The visualiz ed parotid glands appear normal. The right submandibular gland is small and contains a sial olith measuring 6 mm in size. The left submandibular gland is normal. LUNG APICES: The vis ualized portions of lung apices are normal. 01/12/2017 1. Previously seen surgical drain has been removed. 2. Right-sided pedicle scr ew at C7 traverses the superior margin of the C7-T1 neural foramen and could affect the exit ing right C8 nerve root. Right-sided pedicle screw at T1 traverses the T1-2 neural foramen centrally and may be compressing the exiting right T1 nerve root. These findings are unchan ged from the previous exam. 3. All other transpedicular screws are in satisfactory position . 4. Enlarged left thyroid lobe suggesting goiter or large nodule. 5. Atrophy of the right submandibular gland with a 6 mm sialolith seen within the gland. Ct Cervical Spine Without Contrast 01/06/2017 This is a non-reportable procedure without a radiologist report and is used for image storage only Mri Brain Without Contrast 01/10/2017 EXAM: MRI BRAIN WITHOUT CONTRAST EXAM DATE: 01/09/2017 09:40 PM. CLINICAL HISTORY : Right sided weakness. Recent cervical spine fusion surgery. COMPARISON: CT angiogram 01/09. TECHNIQUE: Multiplanar, multisequence T1-weighted and fluid-sensitive MR sequences of the brain were performed. Sequences optimized for routine evaluation. Other: None. IV Contr ast: None. FINDINGS: Appropriate CSF spaces for age. Intracranial gas is present. There is g as seen within the left frontal horn, right sylvian fissure, interhemispheric fissure and wi thin the basal cisterns, prepontine and right andreia-medullary cistern. The appearance is lia lar to the prior CT. Intracranial gas is causing mild degrees of artifact. Examination is al so mildly degraded by motion. No space-occupying lesion, intracranial hemorrhage, extracereb ral fluid collection, hydrocephalus or evidence of recent infarct. 01/10/2017 Intraventricular and subarachnoid gas, the appearance is similar to the prior CT . No evidence of intracranial hemorrhage or recent infarct. RADIA Electronically signed by Artemio Riddle MD on Jan 10 2017 12:26AM Referring Provider Line: [phone] ID: [id number] Mri Cervical Spine Without Contrast 01/10/2017 EXAM: MRI CERVICAL SPINE WITHOUT CONTRAST EXAM DATE: 01/09/2017 09:57 PM. CLINICA L HISTORY: Right sided weakness. Recent fusion surgery for fracture, ankylosing spondylitis. COMPARISONS: CT angiogram 01/09/2017, preoperative MRI 01/07/2017.. TECHNIQUE: Multiplanar, multisequence T1-weighted and fluid-sensitive sequences of the cervical spine without contr ast. Other: None. FINDINGS: Neurologic Structures: There is a region of T2 signal prolongati on and slight swelling seen within the right cervical cord. This measures 20 mm craniocaudal by 5 x 5 mm. This is centered at the C3-C4 level. Alignment: No scoliosis or spondylolisth esis. Bone Marrow: No gross fractures or bone lesions. No marrow edema. There is a T2 signal prolongation within the C6-C7 disk space which is widened when compared to the preoperative study. Disk space measures 7 mm craniocaudal, previously 3 mm. Interspace Levels/Facets: Po sterior instrumentation from C3-T2 bilaterally. Interval widening of the C6-C7 disk space. C entral canal is patent throughout. No intraspinal hematoma. There are changes of ankylosing spondylitis as before. Musculature: Expected postoperative change Other: Expected postoperat larry change. There is a surgical drain dorsal to the fusion hardware. Patient is intubated. L eft thyroid mass, unchanged. 01/10/2017 Posterior instrumentation from C3-T2. Interval widening of the C6-C7 disk space, this is at the level of fracture in this patient with ankylosing spondylitis. Examination s lightly limited by the implanted hardware, however, the central canal is patent throughout. No evidence of intraspinal hematoma. Region of T2 signal prolongation and mild swelling with in the right cervical cord centered at the C3-C4 level. Finding is new when compared to the prior MR and is consistent with recent injury. RADIA The above findings were discussed with Dr. Parikh by Dr. Artemio Riddle at 00:42 hrs on 01/10/17. Electronically signed by Artemio Riddle MD on Jan 10 2017 12:50AM Referring Provider Line: [phone] ID: [id number] Mri C-spine Without Contrast 01/07/2017 EXAM: MRI CERVICAL SPINE WITHOUT CONTRAST EXAM DATE: 01/07/2017 12:33 AM. CLINICA L HISTORY: Pain after trauma. Fractures seen on outside CT. COMPARISONS: Outside CT cervical spine 01/06/2017. TECHNIQUE: Multiplanar, multisequence T1-weighted and fluid-sensitive seq uences of the cervical spine without contrast. Other: None. FINDINGS: Neurologic Structures: The visualized posterior fossa structures are unremarkable. No signal abnormality in the vi sualized spinal cord. Alignment: Normal. No scoliosis or spondylolisthesis. Bone Marrow: The re are changes of ankylosing spondylitis T2 signal prolongation is seen within the bone pasha ow dorsally at C5 and C6, with suspected disruption of the posterior longitudinal ligament a t this level. T2 signal prolongation within the disk space at C6-C7. There is a small amount of prevertebral soft tissue edema in the lower cervical/upper thoracic spine consistent wit h recent injury. No displaced fracture is identified. No intraspinal hematoma or cord imping ement at any level. Interspace Levels/Facets: Bony central canal and foramina appear patent at all levels. Changes of ankylosing spondylitis throughout. Musculature: Normal. No edema o r fatty atrophy. Other: Left thyroid mass measures up to 3.8 cm. This is poorly characterize d with this technique. 01/07/2017 Left thyroid mass measures up to 3.8 cm. Consider correlation with thyroid ultra sound. Changes of ankylosing spondylitis throughout the cervical and upper thoracic spine. T here is a small amount of prevertebral soft tissue edema. 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 T2 signal prolongation within the disk s pace at C6-C7. Findings represent nondisplaced fracture through the ankylosed spine at this level. RADIA Electronically signed by Artemio Riddle MD on Jan 07 2017 1:18AM Referring Prov ider Line: [phone] ID: [id number] Xr Chest 1 View 01/09/2017 JOSE RAFAEL Ayesha WALKER XR CHEST 1 VIEW 01/09/2017 7:19 PM HISTORY: Assessment for life-mclain pport lines and tubes. TECHNIQUE: AP chest radiograph 1915 hours. COMPARISON: Chest radiogra ph January 06, 2017. FINDINGS: Endotracheal tube is newly seen, 6.5 cm from the pamela. Lower ce rvical spine fusion hardware is partially visualized. A surgical drain overlies the upper ch est in the midline. Strandy bilateral opacities are seen at the lung bases, increasing. No p neumothorax is present. The cardiac silhouette and pulmonary vasculature are normal. A nasog astric tube is seen, the tip in the gastric body. 01/09/2017 1. Status post intubation and nasogastric tube placement, as above. 2. Increas ing bilateral basilar subsegmental atelectasis. 3. Status post spine fusion, with hardware partially visualized. Ct Facial Bones 01/07/2017 EXAM: CT MAXILLOFACIAL WITHOUT CONTRAST EXAM DATE: 01/07/2017 01:06 AM. CLINICAL HISTORY: Facial swelling. COMPARISONS: None. TECHNIQUE: Thin-section axial images were acqui red of the face without contrast. Post-processing: Coronal and sagittal reformats. Other: No ne. In accordance with CT protocol optimization, one or more of the following dose reduction techniques were utilized for this exam: automated exposure control, adjustment of mA and/or KV based on patient size, or use of iterative reconstructive technique. FINDINGS: There is soft tissue emphysema within the left submandibular space, left cellophane wrapping examiner space, and left p eriorbital soft tissues. This is likely due to a acute displaced fracture of the anterolater al wall of the left maxillary sinus (series 4 image 30, series 3 image 70). The fracture fra gment is displaced superomedially and posteriorly into the left maxillary sinus. Bones: Cerv ical spine appears ankylosed, with no definite CT evidence of acute fracture or malalignment . Temporomandibular Joints: The temporomandibular joints are symmetric and normally located. Sinuses: Mucous retention cyst/polyp within the left maxillary sinus. Other: None. 01/07/2017 1. Acute displaced fracture of the anterolateral wall of the left maxillary sinu s (series 4 image 30, series 3 image 70). The fracture fragment is displaced superomedially and posteriorly into the left maxillary sinus. 2. Given the left maxillary sinus wall fractu re, there is now resulting soft tissue emphysema within the left submandibular space, left m asticator space, and left periorbital soft tissues. 3. 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 No evidence of acute fracture or malalignment involving the spine. However, given the ankylosed spine MRI of the spine is recommended, as clinically indicated, to further evalua te. RADIA Electronically signed by Divya Prieto MD on Jan 07 2017 1:30AM Referring Pro vider Line: [phone] ID: [id number] Echo Cardiac Adult Limited 01/07/2017 Patient Name: JOSE RAFAEL WALKER Date of : 1950 [facility] Physician: Ihsankelly Dayo INDICATIONS abn ekg, pt flat due to spinal injury CONCLUSIONS --------- -- 1. The left ventricle is normal in size, mild concentric hypertrophy and hyperdynamic sys tolic function EF >70%. 2. The right ventricle is moderately enlarged with normal systolic f unction. 3. The aortic valve is mildly calcified with mild aortic regurgitation. 4. There is no pericardial effusion. FINDINGS -------- [no group]: Doppler was limited due to image yovani lity and angle. ECG rhythm: Sinus rhythm. Study: A limited 2-dimensional transthoracic echoc ardiogram with limited spectral and color flow Doppler was performed. Study: This was a te chnically difficult study with suboptimal views. Left Ventricle: Left ventricular systolic f unction is hyperdynamic with an estimated EF of >70%. Left Ventricle: The left ventricle cav ity size is normal. Left Ventricle: There is mild concentric left ventricular hypertrophy. R ight Ventricle: The right ventricle is moderately enlarged. Right Ventricle: The right ventr icular systolic function is normal. Left Atrium: The left atrium was not well visualized. Ri ght Atrium: The right atrium was not well visualized. Aortic Valve: The aortic valve is tril eaflet. Aortic Valve: The aortic valve is mildly calcified. Aortic Valve: There is mild aort ic regurgitation. Mitral Valve: The mitral valve is normal. Tricuspid Valve: The tricuspid v alve appears structurally normal. Pulmonic Valve: The pulmonic valve was not well visualized . Pericardium: There is no pericardial effusion. Pericardium: No pleural effusion seen. IVC/ Hepatic Veins: The IVC was not well visualized. MEASUREMENTS ELLA Planimetry: 2.43 cm2 AVAI Planimetry: 0.00 cm2/m2 RA Area: 27.57 cm2 Ao asc: 3.90 cm Ao sinus: 3.[address] junct: 3.52 cm EDV(Teich): 73.19 ml IVSd: 1.24 cm LVIDd: 4.07 cm LVPWd : 1.21 cm LVOT Diam: 2.26 cm %FS: 43.08 % EF(Teich): 74.69 % ESV(Teich): 18.51 ml IVSs: 1.43 cm LVIDs: 2.31 cm LVPWs: 1.43 cm SV(Teich): 54.67 ml Ao Diam: 4.05 cm A V Cusp: 1.84 cm LA Diam: 3.72 cm LA/Ao: 0.91 D-E Excursion: 1.21 cm E-F Gooding: 0.0 3 m/s EPSS: 0.99 cm HR: 75.39 BPM AV maxP.18 mmHg AV meanP.31 mmHg AV Vmax: 2.18 m/s AV Vmean: 1.41 m/s AV VTI: 40.05 cm ELLA Vmax: 1.74 cm2 ELLA (VTI): 1.94 c m2 AVAI Vmax: 0.00 cm2/m2 AVAI (VTI): 0.00 cm2/m2 LVCI Dopp: 2.59 l/minm2 LVCO Dopp: 5.90 l/min HR: 75.72 BPM LVOT maxP.58 mmHg LVOT meanP.60 mmHg LVSI Dopp: 34 .21 ml/m2 LVSV Dopp: 78.01 ml LVOT Vmax: 0.94 m/s LVOT Vmean: 0.58 m/s LVOT VTI: 19. 33 cm MV A Ervin: 1.04 m/s MV DecT: 337.46 ms MV E Ervin: 0.83 m/s MV E/A Ratio: 0.79 MV PHT: 99.88 ms MVA By PHT: 2.20 cm2 MV A Dur: 173.01 ms TV A Ervin: 0.87 m/s TV Dec Sl ope: 2.09 m/s2 TV Dec Time: 382.76 ms TV E Ervin: 0.80 m/s TV E/A Ratio: 0.91 Sonograp her: CM Authenticated by: Leoncio Oshea Report Date/Time: 01-07-2017 21:17:11 01/07/2017 1. The left ventricle is normal in size, mild concentric hypertrophy and hyperdy namic systolic function EF >70%. 2. The right ventricle is moderately enlarged with normal s ystolic function. 3. The aortic valve is mildly calcified with mild aortic regurgitation. 4. There is no pericardial effusion. X-ray C-arm Fluoro Over 1 Hour 01/09/2017 JOSE RAFAEL WALKER XR C-ARM FLUORO OVER 1 HOUR 01/09/2017 3:43 PM HISTORY: Spine surg jeremiah. TECHNIQUE: Cervical spine 4 views using C-arm technique. FINDINGS: Limited fluoroscopic films demonstrate a posterior fusion from C3 to approximately T2 with incorporation of pedi cami screws and connecting rods. There appears to be bony ankylosis suggesting ankylosing spo ndylitis. There may been a laminectomy performed as well. 01/09/2017 1. Procedural films, as above. Ct Thoracic Lumbar Without Contrast 01/07/2017 JOSE RAFAEL WALKER 1950 [address] THORACIC LUMBAR WO CONTRAST 01/07/2017 10:11 AM INDIC ATION: Trauma COMPARISON: CT cervical spine 01/06/2017 TECHNIQUE: CT scan of the thoracic and lumbar spine without IV contrast. 1.5 mm thick helically acquired axial images are obtained with coronal and sagittal reconstructed images. Dose reduction techniques were used includ ing automated exposure control, iterative reconstruction technique, and/or automated adjusta ble mAs based on patient size. FINDINGS: There is ankylosis demonstrated throughout the visu alized portions of the thoracic and lumbar spine. Ankylosis is also noted at the SI joints b ilaterally. Bone mineralization is decreased, limiting osseous detail. There is minimal wedg ing of the superior endplate of L1 which is age indeterminate. Remaining vertebral bodies ma intain appropriate height. There are zones of neural foraminal stenosis demonstrated in the mid to lower spine most pronounced at T9-T10 on the left (series 6B, image 35). No convincin g evidence of acute fracture is identified. No significant prevertebral soft tissue swelling is seen. There are bilateral hip prostheses. Hypoventilatory changes and subsegmental zones of atelectasis are demonstrated within the lung bases. There is a 6 mm subsolid nodular opa city seen within the right middle lobe (series 5, image 55). 01/07/2017 1. Diffuse ankylosis of the spine. No evidence of acute fracture or traumatic s ubluxation. If there is continued concern for acute fracture or ligamentous injury, consider further evaluation with MRI. 2. Minimal compression of the superior endplate of L1 which i s age indeterminate. LEM LIST Principal Problem: Closed nondisplaced fracture of seventh cervical vertebra (HCC) Active Problems: Maxillary fracture, left side, initial encounter for open fracture Antiphospholipid syndrome (HCC) Controlled type 2 diabetes mellitus with hyperglycemia (HCC) Syncope and collapse Thyroid mass ASSESSMENT & PLAN Closed nondisplaced fracture cervical vertebra status post fall and underwent C3-C4, 3-5, 5 -6, 6-7, C7-T1, T1 and T2 posterior pedicle Lateral Mass instrumented fusion doing better Plan continue the patient on MS Contin 60 mg bid and morphine 15 mg every 4 hour prn PT OT consulted Left maxillary fracture: Follow up with Dr. Ernst ENT as an outpatient Diabetes mellitus type II blood glucose running a in 200s Plan continue the patient on Levemir 59 years bid and lispro 6 units with meals, on insulin sliding scale Thyroid mass: Patient is an outpatient workup and needs a follow-up with Dr. Mekhi HERNANDEZ Fall: Nausea of his syncope as EKG showed normal sinus rhythm, patient remained in normal s inus rhythm, echo and CTA neck negative Hypertension well controlled on lisinopril and hydrochlorothiazide Deep vein thrombosis prophylaxis no need as patient is ambulating I spent more than 35 minutes JOSSIE SARAVIA MD 01/12/2017 onversion Transactio n, Provider Unknown - 01/12/2017 2:37 PM PDT Therapy Progress Note by Angelito Mirza PTA at 01/12/17 9543 Author: Angelito Mirza PTA Service: (none) Author Type: In Store Demonstrator Filed: 01/12/17 4518 Date of Service: 01/12/171436 Status: Signed Food Service Helper: Angelito Mirza PTA (In Store Demonstrator) 01/12/17 1433 PT Last Visit PT Received On 01/12/17 Reason for Treatment Spinal surgery Requires PT Follow Up Yes Assistance Required 1 person Precautions Spinal Precautions Cervical;Cervical collar on when upright Other Comments Comments pt in BR ready to participate completed transfer and gait training and returned t o sitting in chair Cognition Overall Cognitive Status WFL Orientation Level Oriented Transfers Sit to/from Stand Standby assist Mobility Ambulation Assistance Standby assist Maximal Ambulation Distance (feet) 550 Total Ambulation Distance (feet) 550 Distance limited by? Patient's ability Pattern Alternating;Decreased khalif Assistive Device Walker front wheeled Activity Tolerance Activity Tolerance Patient limited by fatigue Plan Treatment/Interventions Continue per Primary PT POC Progress Progressing toward goals Recommendation Recommendations Home Assist PT Ready for Discharge Yes PT recommendations were discussed and verified with supervising PT. onver jacki Transaction, Provider Unknown - 01/12/2017 2:31 PM PDT Nurse Progress Note by Melissa Lindsay RN at 01/12/17 1431 Author: Melissa Lindsay RN Service: (none) Author Type: Registered Nurse Filed: 01/12/17 1432 Date of Service: 01/12/17 1431 Status: Signed Food Service Helper: Melissa Lindsay RN (Registered Nurse) called and informed that dressing is saturated. Telephone order to place patient NPO. onver jacki Transaction, Provider Unknown - 01/12/2017 11:27 AM PDT Therapy Progress Note by Angelito Mirza PTA at 01/12/17 1127 Author: Angelito Mirza PTA Service: (none) Author Type: In Store Demonstrator Filed: 01/12/17 1129 Date of Service: 01/12/17 1127 Status: Signed Food Service Helper: Angelito Mirza PTA (In Store Demonstrator) 01/12/17 1127 PT Last Visit PT Received On 01/12/17 Reason for Treatment Spinal surgery Requires PT Follow Up Yes Assistance Required 1 person Precautions Spinal Precautions Cervical;Cervical collar on when upright Other Comments Comments pt supine in bed ready to participate completed transfer and gait training and re turned to sitting in chair Cognition Overall Cognitive Status WFL Orientation Level Oriented Bed Mobility Supine to Sit Mod assist (BLEs OOB or trunk to upright) Scooting Minimal assist Transfers Sit to/from Stand Minimal assist (steadying/contact guard) Bed to/from Chair Standby assist Mobility Ambulation Assistance Standby assist Maximal Ambulation Distance (feet) 550 Total Ambulation Distance (feet) 550 Distance limited by? Patient's ability Pattern Alternating;Decreased khalif Assistive Device Walker front wheeled Activity Tolerance Activity Tolerance Patient limited by fatigue Plan Treatment/Interventions Continue per Primary PT POC Progress Progressing toward goals Recommendation Recommendations Home Assist PT recommendations were discussed and verified with supervising PT. Mendez Oconnor MD - 01/12/2017 10:18 AM PDT Progress Notes by Mendez Morrison MD at 01/12/17 1018 Author: Mendez Morrison MD Service: Neurosurgery Author Type: Physician Filed: 01/13/17 1220 Date of Service: 01/12/17 1018 Status: Signed Food Service Helper: Mendez Morrison MD (Physician) [facility] Service: Neurosurgery Progress Note Hospital Day: LOS: 5 days Post-Op Day: 3 Days Post-Op Surgery/Procedure: Procedure(s) (LRB): CERVICAL - FUSION - POSTERIOR (N/A) SUBJECTIVE Patient Summary: Clear fluid leaking from wound last night. Dressing reapplied and no soakage since then Events Overnight: ? CSF leak Scheduled Medications allopurinol 100 mg Oral Daily bisacodyl 10 mg Rectal Daily calcium carbonate-vitamin D 1 tablet Oral BID WC hydrochlorothiazide 25 mg Oral Daily insulin detemir 59 Units Subcutaneous BID insulin lispro (human) 6-18 Units Subcutaneous Q4H levothyroxine 50 mcg Oral QAM AC lisinopril 10 mg Oral Daily morphine 60 mg Oral 2 times per day pantoprazole 40 mg Intravenous QAM AC sodium phosphate 45 mmol Intravenous Once zinc sulfate 220 mg Oral Daily Continuous Infusions dextrose PRN Medications acetaminophen OR acetaminophen, carboxymethylcellulose, dextrose, dextrose, dextrose, d ocusate sodium OR docusate, fentaNYL OR fentaNYL, magnesium sulfate OR magnesium sulfate OR magnesium sulfate, morphine, nystatin, nystatin, ondansetron OR ondanset shanika, petrolatum, phosphorus OR sodium phosphate IVPB 20 mmol OR sodium phosphate IVP B 45 mmol, polyethylene glycol, potassium OR potassium OR potassium OR potassium chloride OR potassium chloride OR potassium chloride OBJECTIVE Vital Signs: BP 136/63 mmHg | Pulse 71 | Temp(Src) 97.5 F (36.4 C) (Oral) | Resp 19 | Ht 1.778 m (5' 10") | Wt 118.6 kg (261 lb 7.5 oz) | BMI 37.52 kg/m2 | SpO2 97% Extubated, Ox3 craft demonstrator intact 5/5 x4 Sensation intact No radicular pain On a regular diet Walking with PT Wound CDI DATA Recent Labs Lab 01/12/1755701/11/1740601/10/17 0433 WBC 20.42* 25.36* 15.91* RBC 3.89* 3.94* 3.93* HGB 11.2* 11.3* 11.3* HCT 33.4* 33.5* 33.7* MCV 85.7 85.2 85.8 MCH 28.7 28.7 28.7 MCHC 33.5 33.7 33.5 RDW 44.6 43.3 44.6 PLT 254 222 220 MPV 8.1 8.1 8.1 DIFFTYPE MANUAL MANUAL MANUAL Results Procedure Component Value Units Date/Time Basic metabolic panel [[id number]] (Abnormal) Collected: 01/12/17557 Specimen Information: Blood Updated: 01/12/17718 SODIUM 135 mmol/L POTASSIUM 4.7 mmol/L CHLORIDE 97 (L) mmol/L CO2 31 mmol/L ANION GAP AGAP 12 mmol/L GLUCOSE 230 (H) mg/dL BUN 19 mg/dL CREATININE 0.8 mg/dL BUN/CREAT 24 CALCIUM 9.7 mg/dL EGFR >60 mL/min/1.73m2 Magnesium [[id number]] Collected: 01/12/17557 Specimen Information: Blood Updated: 01/12/17718 MAGNESIUM 2.3 mg/dL Phosphorus [[id number]] Collected: 01/12/17557 Specimen Information: Blood Updated: 05/23/17 0719 PHOSPHORUS 2.9 mg/dL CBC w/auto diff (reflex to manual) [[id number]] (Abnormal) Collected: 01/12/17 0558 Specimen Information: Blood Updated: 01/12/17 0716 WBC 20.42 (H) K/uL RBC 3.89 (L) M/uL HGB 11.2 (L) g/dL HCT 33.4 (L) % MCV 85.7 fl MCH 28.7 pg MCHC 33.5 g/dL RDW SD 44.6 fl PLT 254 K/uL MPV 8.1 fl DIFF TYPE MANUAL Neutrophils Manual 90 % Lymphocytes Manual 6 % Monocytes Manual 4 % Neutrophils Absolute 18.37 (H) K/uL Lymphocytes Absolute 1.23 K/uL Monocytes Absolute 0.82 (H) K/uL MORPHOLOGY RBC AND PLT MORPHOLOGY APPEAR NORMAL Protime-INR [[id number]] Collected: 01/12/17 0558 Specimen Information: Blood Updated: 01/12/17 0640 INR 1.1 POCT glucose [[id number]] (Abnormal) Collected: 01/12/17 0539 GLUCOSE,POC SCREEN 287 (H) mg/dL Updated: 01/12/17 0554 POCT glucose [[id number]] (Abnormal) Collected: 01/11/171999 GLUCOSE,POC SCREEN 161 (H) mg/dL Updated: 01/11/172005 POCT glucose [[id number]] (Abnormal) Collected: 01/11/17 1427 GLUCOSE,POC SCREEN 166 (H) mg/dL Updated: 01/11/17 1709 Sputum cult w/ gram stain [[id number]] Collected: 01/09/17 1844 Specimen Information: Nasopharyngeal from Sputum Updated: 01/11/17 1117 Specimen Description SPUTUM GRAM STAIN GREATER THAN 10 WBCS/LPF GRAM STAIN LESS THAN 10 SEC/LPF GRAM STAIN 1+ GRAM STAIN GRAM POSITIVE COCCI CULTURE 1+ NORMAL UPPER RESPIRATORY BILLY POCT glucose [[id number]] (Abnormal) Collected: 01/11/17 1006 GLUCOSE,POC SCREEN 206 (H) mg/dL Updated: 01/11/17 1010 POCT glucose [[id number]] (Abnormal) Collected: 01/11/17 0626 GLUCOSE,POC SCREEN 186 (H) mg/dL Updated: 01/11/17 0637 Basic metabolic panel [[id number]] (Abnormal) Collected: 01/11/17406 Specimen Information: Blood Updated: 01/11/17521 SODIUM 137 mmol/L POTASSIUM 4.8 mmol/L CHLORIDE 103 mmol/L CO2 27 mmol/L ANION GAP AGAP 12 mmol/L GLUCOSE 185 (H) mg/dL BUN 13 mg/dL CREATININE 0.8 mg/dL BUN/CREAT 16 CALCIUM 8.6 mg/dL EGFR >60 mL/min/1.73m2 Magnesium [[id number]] (Abnormal) Collected: 01/11/17406 Specimen Information: Blood Updated: 01/11/17521 MAGNESIUM 2.5 (H) mg/dL Phosphorus [[id number]] Collected: 01/11/17406 Specimen Information: Blood Updated: 01/11/17521 PHOSPHORUS 2.6 mg/dL CBC w/auto diff (reflex to manual) [[id number]] (Abnormal) Collected: 01/11/17406 Specimen Information: Blood Updated: 01/11/17511 WBC 25.36 (H) K/uL RBC 3.94 (L) M/uL HGB 11.3 (L) g/dL HCT 33.5 (L) % MCV 85.2 fl MCH 28.7 pg MCHC 33.7 g/dL RDW SD 43.3 fl PLT 222 K/uL MPV 8.1 fl DIFF TYPE MANUAL Neutrophils Manual 83 % Bands 7 % Lymphocytes Manual 4 % Monocytes Manual 6 % Neutrophils Absolute 21.05 (H) K/uL Bands Manual 1.78 (H) K/uL Lymphocytes Absolute 1.01 K/uL Monocytes Absolute 1.52 (H) K/uL MORPHOLOGY RBC AND PLT MORPHOLOGY APPEAR NORMAL Protime-INR [[id number]] Collected: 01/11/17406 Specimen Information: Blood Updated: 01/11/17444 INR 1.1 POCT glucose [[id number]] (Abnormal) Collected: 01/11/17 0209 GLUCOSE,POC SCREEN 241 (H) mg/dL Updated: 01/11/17 0236 POCT glucose [[id number]] (Abnormal) Collected: 01/10/17 2222 GLUCOSE,POC SCREEN 291 (H) mg/dL Updated: 01/10/17 222 POCT glucose [[id number]] (Abnormal) Collected: 01/10/17 1844 GLUCOSE,POC SCREEN 209 (H) mg/dL Updated: 01/10/17 1857 POCT glucose [[id number]] (Abnormal) Collected: 01/10/17 1503 GLUCOSE,POC SCREEN 116 (H) mg/dL Updated: 01/10/17 1857 Magnesium [[id number]] Collected: 01/10/17 1607 Specimen Information: Blood Updated: 01/10/17 1631 MAGNESIUM 2.0 mg/dL Phosphorus [[id number]] Collected: 01/10/17 160 Specimen Information: Blood Updated: 01/10/17 1631 PHOSPHORUS 3.9 mg/dL Potassium [[id number]] Collected: 01/10/17 160 Specimen Information: Blood Updated: 01/10/17 1631 POTASSIUM 3.8 mmol/L POCT glucose [[id number]] (Abnormal) Collected: 01/10/17 0935 GLUCOSE,POC SCREEN 127 (H) mg/dL Updated: 01/10/17 1312 POCT glucose [[id number]] (Abnormal) Collected: 01/10/17 1258 GLUCOSE,POC SCREEN 119 (H) mg/dL Updated: 01/10/17 1312 POCT glucose [[id number]] (Abnormal) Collected: 01/10/17 0833 GLUCOSE,POC SCREEN 121 (H) mg/dL Updated: 01/10/17 1312 POCT glucose [[id number]] (Abnormal) Collected: 01/10/17 0728 GLUCOSE,POC SCREEN 121 (H) mg/dL Updated: 01/10/17 0731 CBC w/auto diff (reflex to manual) [[id number]] (Abnormal) Collected: 01/10/17 0433 Specimen Information: Blood Updated: 01/10/17 0703 WBC 15.91 (H) K/uL RBC 3.93 (L) M/uL HGB 11.3 (L) g/dL HCT 33.7 (L) % MCV 85.8 fl MCH 28.7 pg MCHC 33.5 g/dL RDW SD 44.6 fl PLT 220 K/uL MPV 8.1 fl DIFF TYPE MANUAL Neutrophils Manual 85 % Bands 7 % Lymphocytes Manual 4 % Monocytes Manual 4 % Neutrophils Absolute 13.52 (H) K/uL Bands Manual 1.11 (H) K/uL Lymphocytes Absolute 0.64 (L) K/uL Monocytes Absolute 0.64 K/uL MORPHOLOGY RBC AND PLT MORPHOLOGY APPEAR NORMAL Glycohemoglobin A1c [[id number]] (Abnormal) Collected: 01/10/17432 Specimen Information: Blood Updated: 01/10/17644 HEMOGLOBIN A1C 7.3 (H) % ESTIMATED AVG GLUCOSE 163 mg/dL Type and screen [[id number]] Collected: 01/09/17442 Specimen Information: Blood Updated: 01/10/17643 ABO/RH(D) A POSITIVE ANTIBODY SCREEN NEGATIVE ARM BAND NUMBER [id number] UNIT NUMBER [id number] BLOOD COMPONENT TYPE LEUKODEPLETED PC UNIT DIVISION 00 STATUS OF UNIT ISSUED,FINAL TRANSFUSION STATUS OK TO TRANSFUSE CROSSMATCH RESULT COMPATIBLE UNIT NUMBER [id number] BLOOD COMPONENT TYPE LEUKODEPLETED PC UNIT DIVISION 00 STATUS OF UNIT ISSUED,FINAL TRANSFUSION STATUS OK TO TRANSFUSE CROSSMATCH RESULT -- Result: COMPATIBLE Testing performed at [facility] [place];[address] [place] [address];[place] [address] UNIT NUMBER [id number] BLOOD COMPONENT TYPE LEUKODEPLETED PC UNIT DIVISION 00 STATUS OF UNIT ALLOCATED TRANSFUSION STATUS OK TO TRANSFUSE CROSSMATCH RESULT COMPATIBLE UNIT NUMBER [id number] BLOOD COMPONENT TYPE LEUKODEPLETED PC UNIT DIVISION 00 STATUS OF UNIT ALLOCATED TRANSFUSION STATUS OK TO TRANSFUSE CROSSMATCH RESULT COMPATIBLE Prepare Plasma (Blood Bank) [[id number]] Collected: 01/09/17 1040 Additional comment: ORDER RECEIVED IN BLOOD BANK. Updated: 01/10/17643 UNIT NUMBER [id number] BLOOD COMPONENT TYPE PLASMA,THAWED 5 DAY UNIT DIVISION 00 STATUS OF UNIT ISSUED,FINAL TRANSFUSION STATUS OK TO TRANSFUSE UNIT NUMBER [id number] BLOOD COMPONENT TYPE PLASMA,THAWED 5 DAY UNIT DIVISION 00 STATUS OF UNIT ISSUED,FINAL TRANSFUSION STATUS -- Result: OK TO TRANSFUSE Testing performed at [facility] [place];[address] [place] [address];[place] [address] Basic metabolic panel [[id number]] (Abnormal) Collected: 01/10/17432 Specimen Information: Blood Updated: 01/10/17638 SODIUM 142 mmol/L POTASSIUM 3.7 mmol/L CHLORIDE 108 mmol/L CO2 25 mmol/L ANION GAP AGAP 13 mmol/L GLUCOSE 166 (H) mg/dL BUN 14 mg/dL CREATININE 0.8 mg/dL BUN/CREAT 18 CALCIUM 7.8 (L) mg/dL EGFR >60 mL/min/1.73m2 Magnesium [[id number]] Collected: 01/10/17432 Specimen Information: Blood Updated: 01/10/17 0639 MAGNESIUM 2.4 mg/dL Phosphorus [[id number]] (Abnormal) Collected: 01/10/17432 Specimen Information: Blood Updated: 01/10/17 0639 PHOSPHORUS 1.8 (L) mg/dL POCT glucose [[id number]] (Abnormal) Collected: 01/10/17 045 GLUCOSE,POC SCREEN 157 (H) mg/dL Updated: 01/10/17632 POCT glucose [[id number]] (Abnormal) Collected: 01/10/17622 GLUCOSE,POC SCREEN 163 (H) mg/dL Updated: 01/10/17632 POCT glucose [[id number]] (Abnormal) Collected: 01/10/17 0349 GLUCOSE,POC SCREEN 164 (H) mg/dL Updated: 01/10/17632 POCT glucose [[id number]] (Abnormal) Collected: 01/10/17 0246 GLUCOSE,POC SCREEN 177 (H) mg/dL Updated: 01/10/17632 POCT glucose [[id number]] (Abnormal) Collected: 01/10/17 0143 GLUCOSE,POC SCREEN 211 (H) mg/dL Updated: 01/10/17632 POCT glucose [[id number]] (Abnormal) Collected: 01/10/17 0039 GLUCOSE,POC SCREEN 210 (H) mg/dL Updated: 01/10/17632 Protime-INR [[id number]] Collected: 01/10/17432 Specimen Information: Blood Updated: 01/10/17 0509 INR 1.1 POCT glucose [[id number]] (Abnormal) Collected: 01/09/17 2335 GLUCOSE,POC SCREEN 274 (H) mg/dL Updated: 01/10/17 0016 POCT glucose [[id number]] (Abnormal) Collected: 01/09/17 2223 GLUCOSE,POC SCREEN 290 (H) mg/dL Updated: 01/10/17 0016 Magnesium [[id number]] Collected: 01/09/171824 Specimen Information: Blood Updated: 01/09/175 MAGNESIUM 2.2 mg/dL Phosphorus [[id number]] Collected: 01/09/171824 Specimen Information: Blood Updated: 01/09/172024 PHOSPHORUS 3.6 mg/dL MRSA by PCR [[id number]] Collected: 01/09/171854 Specimen Information: Nasopharyngeal from Nasopharyngeal Culture Updated: 01/09/17 SOURCE NARES(NOSE) MRSA PCR NEGATIVE Comprehensive metabolic panel [[id number]] (Abnormal) Collected: 01/09/171824 Specimen Information: Blood Updated: 01/09/171855 SODIUM 138 mmol/L POTASSIUM 5.0 (H) mmol/L CHLORIDE 105 mmol/L CO2 26 mmol/L ANION GAP AGAP 11 mmol/L GLUCOSE 270 (H) mg/dL BUN 15 mg/dL CREATININE 0.96 mg/dL BUN/CREAT 16 CALCIUM 7.1 (L) mg/dL TOTAL PROTEIN 5.9 (L) g/dL Albumin 2.7 (L) g/dL GLOBULIN 3.2 g/dL A/G 0.8 (L) TBIL 1.1 mg/dL ALK PHOS 61 U/L AST 43 U/L ALT 42 U/L EGFR >60 mL/min/1.73m2 Calcium, ionized [[id number]] (Abnormal) Collected: 01/09/171824 Specimen Information: Blood Updated: 01/09/171854 CA++ 0.98 (L) mmol/L pH 7.367 CBC W/Auto Diff (Reflex to Manual) [[id number]] (Abnormal) Collected: 01/09/171824 Specimen Information: Blood Updated: 01/09/171854 WBC 18.34 (H) K/uL RBC 4.17 (L) M/uL HGB 12.3 (L) g/dL HCT 35.6 (L) % MCV 85.4 fl MCH 29.6 pg MCHC 34.7 g/dL RDW SD 43.3 fl PLT 219 K/uL MPV 7.5 fl DIFF TYPE AUTOMATED NEUTROPHILS 95.37 % LYMPHOCYTES 2.90 % MONOCYTES 1.55 % EOSINOPHILS 0.03 % BASOPHILS 0.15 % NEUTROPHILS ABS 17.49 (H) K/uL LYMPHOCYTES ABS 0.53 (L) K/uL MONOCYTES ABS 0.28 K/uL EOSINOPHILS ABS 0.01 K/uL BASOPHILS ABS 0.03 K/uL MORPHOLOGY RBC AND PLT MORPHOLOGY APPEAR NORMAL Diff Comment Result: SLIDE SCANNED, AGREES WITH AUTOMATED RESULTS. POCT glucose [[id number]] (Abnormal) Collected: 01/09/17 1749 GLUCOSE,POC SCREEN 241 (H) mg/dL Updated: 01/09/17 1753 POC arterial CG8+ [[id number]] (Abnormal) Collected: 01/09/17 1459 pH, Art 7.335 (L) Updated: 01/09/17 1502 POC PCO2 45 mmHg POC p02 201 (H) mmHg POC HCO3 24 mmol/L POC TCO2 25 mEq/L POC BASE DEFICIT 2 mmol/L POC S02 100 (H) % POC SODIUM 139 mEq/L POC POTASSIUM 4.3 mEq/L POC IONIZED CALCIUM 0.93 (L) mmol/L POC GLUCOSE 238 (H) mg/dL POC HCT 36 (L) % POC HGB 12.2 (L) g/dL POC arterial CG8+ [[id number]] (Abnormal) Collected: 01/09/17 1212 pH, Art 7.348 (L) Updated: 01/09/17 1216 POC PCO2 41 mmHg POC p02 205 (H) mmHg POC HCO3 23 mmol/L POC TCO2 24 mEq/L POC BASE DEFICIT 3 (H) mmol/L POC S02 100 (H) % POC SODIUM 141 mEq/L POC POTASSIUM 3.7 mEq/L POC IONIZED CALCIUM 0.92 (L) mmol/L POC GLUCOSE 185 (H) mg/dL POC HCT 31 (L) % POC HGB 10.5 (L) g/dL POC arterial CG8+ [[id number]] (Abnormal) Collected: 01/09/17 1107 pH, Art 7.343 (L) Updated: 01/09/17 1111 POC PCO2 41 mmHg POC p02 196 (H) mmHg POC HCO3 22 mmol/L POC TCO2 24 mEq/L POC BASE DEFICIT 3 (H) mmol/L POC S02 100 (H) % POC SODIUM 140 mEq/L POC POTASSIUM 3.7 mEq/L POC IONIZED CALCIUM 1.00 (L) mmol/L POC GLUCOSE 165 (H) mg/dL POC HCT 35 (L) % POC HGB 11.9 (L) g/dL Recent Labs Lab 01/12/17 0558 01/11/17 0407 01/10/17 0433 01/06/17 2335 APTT -- -- -- -- 39* INR 1.1 1.1 1.1 < > 2.2 < > = values in this interval not displayed. Cta Head Neck 01/09/2017 1. Right T1 posterior elements screw extends into the right T1-T2 neural forame n. 2. Small tentorial subdural hematoma bilaterally. 3. Probable postoperative pneumocepha lidia, as above. 4. No evidence of hemodynamically significant arterial stenosis in the neck or head. 5. C6-C7 fracture, as above, with intact fusion from C3 to T2, in this patient wi th evidence of ankylosing spondylitis. Electronically signed by Arthur Rodriguez MD on 2016 6:49 PM X-ray Shoulder Right Complete 2+v 01/07/2017 FINDINGS/ IMPRESSION: 1. No acute fracture or dislocation. 2. 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 3. Osteopenia. Electronicall y signed by Cierra López on 01/07/2017 1:49 PM X-ray Knee Limited Left 01/07/2017 No acute fracture or dislocation. No bone, joint or soft tissue abnormality. Kristy ctronically signed by Omkar Lopes MD on 01/07/2017 6:58 AM X-ray Knee Limited Right 01/07/2017 No acute fracture or dislocation. No bone, joint or soft tissue abnormality. Kristy ctronically signed by Omkar Lopes MD on 01/07/2017 6:57 AM Cta Neck With Iv Contrast 01/07/2017 1. No evidence of significant hemodynamic stenosis, aneurysm, or dissection inv olving the carotid arteries in the neck. 2. Depressed fracture of the anterior wall of the left maxillary sinus with overlying soft tissue swelling and emphysema. Electronically malachi d by Raf Donnelly on 01/07/2017 11:[address] Cervical Spine Without Contrast 01/12/2017 1. Previously seen surgical drain has been removed. 2. Right-sided pedicle scr ew at C7 traverses the superior margin of the C7-T1 neural foramen and could affect the exit ing right C8 nerve root. Right-sided pedicle screw at T1 traverses the T1-2 neural foramen centrally and may be compressing the exiting right T1 nerve root. These findings are unchan ged from the previous exam. 3. All other transpedicular screws are in satisfactory position . 4. Enlarged left thyroid lobe suggesting goiter or large nodule. 5. Atrophy of the right submandibular gland with a 6 mm sialolith seen within the gland. Mri Brain Without Contrast 01/10/2017 Intraventricular and subarachnoid gas, the appearance is similar to the prior CT . No evidence of intracranial hemorrhage or recent infarct. [facility] Electronically signed by Artemio Riddle MD on Jan 10 2017 12:26AM Referring Provider Line: [phone] ID: [id number] Mri Cervical Spine Without Contrast 01/10/2017 Posterior instrumentation from C3-T2. Interval widening of the C6-C7 disk space, this is at the level of fracture in this patient with ankylosing spondylitis. Examination s lightly limited by the implanted hardware, however, the central canal is patent throughout. No evidence of intraspinal hematoma. Region of T2 signal prolongation and mild swelling with in the right cervical cord centered at the C3-C4 level. Finding is new when compared to the prior MR and is consistent with recent injury. [facility] The above findings were discussed with Dr. Parikh by Dr. Artemio Riddle at 00:42 hrs on 01/10/17. Electronically signed by Artemio Riddle MD on Jan 10 2017 12:50AM Referring Provider Line: [phone] ID: [id number] Mri C-spine Without Contrast 01/07/2017 Left thyroid mass measures up to 3.8 cm. Consider correlation with thyroid ultra sound. Changes of ankylosing spondylitis throughout the cervical and upper thoracic spine. T here is a small amount of prevertebral soft tissue edema. 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 T2 signal prolongation within the disk s pace at C6-C7. Findings represent nondisplaced fracture through the ankylosed spine at this level. [facility] Electronically signed by Artemio Riddle MD on Jan 07 2017 1:18AM Referring Prov ider Line: [phone] ID: [id number] Xr Chest 1 View 01/09/2017 1. Status post intubation and nasogastric tube placement, as above. 2. Increas ing bilateral basilar subsegmental atelectasis. 3. Status post spine fusion, with hardware partially visualized. Ct Facial Bones 01/07/2017 1. Acute displaced fracture of the anterolateral wall of the left maxillary sinu s (series 4 image 30, series 3 image 70). The fracture fragment is displaced superomedially and posteriorly into the left maxillary sinus. 2. Given the left maxillary sinus wall fractu re, there is now resulting soft tissue emphysema within the left submandibular space, left m asticator space, and left periorbital soft tissues. 3. 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 No evidence of acute fracture or malalignment involving the spine. However, given the ankylosed spine MRI of the spine is recommended, as clinically indicated, to further evalua te. [facility]IA Electronically signed by Divya Prieto MD on Jan 07 2017 1:30AM Referring Pro vider Line: [phone] ID: [id number] Echo Cardiac Adult Limited 01/07/2017 1. The left ventricle is normal in size, mild concentric hypertrophy and hyperdy namic systolic function EF >70%. 2. The right ventricle is moderately enlarged with normal s ystolic function. 3. The aortic valve is mildly calcified with mild aortic regurgitation. 4. There is no pericardial effusion. X-ray C-arm Fluoro Over 1 Hour 01/09/2017 1. Procedural films, as above. Ct Thoracic Lumbar Without Contrast 01/07/2017 1. Diffuse ankylosis of the spine. No evidence of acute fracture or traumatic s ubluxation. If there is continued concern for acute fracture or ligamentous injury, consider further evaluation with MRI. 2. Minimal compression of the superior endplate of L1 which i s age indeterminate. LEM LIST Principal Problem: Closed nondisplaced fracture of seventh cervical vertebra (HCC) Active Problems: Maxillary fracture, left side, initial encounter for open fracture Antiphospholipid syndrome (HCC) Controlled type 2 diabetes mellitus with hyperglycemia (HCC) Syncope and collapse Thyroid mass ASSESSMENT & PLAN POD 3 C3-T2 fusion Had one episode of CSF leak from wound Ct shows no CSF collection in the wound Discussed options with the patient. Our plan would be lumbar drain placement andresuturing the wound if he leaks CSF again Disposition: Unknown Code Status: Full Code Mendez Morrison MD 01/12/2017 10:19 AM onversio n Transaction, Provider Unknown - 01/12/2017 7:53 AM PDTFormatting of this note might be di fferent from the original. Nurse Progress Note by Melissa Lindsay RN at 01/12/17 075 Author: Melissa Lindsay RN Service: (none) Author Type: Registered Nurse Filed: 01/12/17752 Date of Service: 01/12/17752 Status: Signed Food Service Helper: Melissa Lindsay RN (Registered Nurse) Pt to CT. Tele called. onver jacki Transaction, Provider Unknown - 01/12/2017 7:00 AM PDT Nurse Progress Note by Luz Chen RN at 01/12/17 07 Author: Luz Chen RN Service: (none) Author Type: Registered Nurse Filed: 01/12/17702 Date of Service: 01/12/17699 Status: Signed Food Service Helper: Luz Chen RN (Registered Nurse) Patient has had moderate drainage during NOC shift from removed ED site along with lower pérez lf of cervical incision. Minimal swelling around removed ED site. Dressing changed X2 during NOC shift. Patient pain has been manageable during NOC shift. Patient has ambulated multipl e times to bathroom and has tolerated mobilizing well. Patient A&O, VSS at this time. Luz Chen RN 01/12/2017 7:03 AM Mendez Oconnor MD - 01/11/2017 6:59 PM PDT Progress Notes by Mendez Morrison MD at 01/11/171858 Author: Mendez Morrison MD Service: Neurosurgery Author Type: Physician Filed: 01/13/17 1215 Date of Service: 01/11/171858 Status: Signed Food Service Helper: Mendez Morrison MD (Physician) [facility] Service: Neurosurgery Progress Note Hospital Day: LOS: 4 days Post-Op Day: 2 Days Post-Op Surgery/Procedure: Procedure(s) (LRB): CERVICAL - FUSION - POSTERIOR (N/A) SUBJECTIVE Patient Summary: Doing fine Events Overnight: No acute events Scheduled Medications allopurinol 100 mg Oral Daily bisacodyl 10 mg Rectal Daily calcium carbonate-vitamin D 1 tablet Oral BID WC dexamethasone 6 mg Intravenous Q6H hydrochlorothiazide 25 mg Oral Daily insulin detemir 59 Units Subcutaneous BID insulin lispro (human) 6-18 Units Subcutaneous Q4H levothyroxine 50 mcg Oral QAM AC lisinopril 10 mg Oral Daily morphine 60 mg Oral 2 times per day pantoprazole 40 mg Intravenous QAM AC sodium phosphate 45 mmol Intravenous Once zinc sulfate 220 mg Oral Daily Continuous Infusions dextrose PRN Medications acetaminophen OR acetaminophen, carboxymethylcellulose, dextrose, dextrose, dextrose, d ocusate sodium OR docusate, fentaNYL OR fentaNYL, magnesium sulfate OR magnesium sulfate OR magnesium sulfate, morphine, nystatin, nystatin, ondansetron OR ondanset shanika, petrolatum, phosphorus OR sodium phosphate IVPB 20 mmol OR sodium phosphate IVP B 45 mmol, polyethylene glycol, potassium OR potassium OR potassium OR potassium chloride OR potassium chloride OR potassium chloride OBJECTIVE Vital Signs: BP 159/69 mmHg | Pulse 72 | Temp(Src) 98.4 F (36.9 C) (Axillary) | Resp 20 | Ht 1.778 m (5' 10") | Wt 118.6 kg (261 lb 7.5 oz) | BMI 37.52 kg/m2 | SpO2 99% Extubated, Ox3 craft demonstrator intact 5/5 x4 Sensation intact No radicular pain ED- CSF On a regular diet Walking with PT Wound CDI DATA Recent Labs Lab 01/11/17 0407 01/10/17 0433 01/09/17 1825 WBC 25.36* 15.91* 18.34* RBC 3.94* 3.93* 4.17* HGB 11.3* 11.3* 12.3* HCT 33.5* 33.7* 35.6* MCV 85.2 85.8 85.4 MCH 28.7 28.7 29.6 MCHC 33.7 33.5 34.7 RDW 43.3 44.6 43.3 PLT 222 220 219 MPV 8.1 8.1 7.5 DIFFTYPE MANUAL MANUAL AUTOMATED Results Procedure Component Value Units Date/Time POCT glucose [[id number]] (Abnormal) Collected: 01/11/17 1427 GLUCOSE,POC SCREEN 166 (H) mg/dL Updated: 01/11/17 1709 Sputum cult w/ gram stain [[id number]] Collected: 01/09/17 1844 Specimen Information: Nasopharyngeal from Sputum Updated: 01/11/17 1117 Specimen Description SPUTUM GRAM STAIN GREATER THAN 10 WBCS/LPF GRAM STAIN LESS THAN 10 SEC/LPF GRAM STAIN 1+ GRAM STAIN GRAM POSITIVE COCCI CULTURE 1+ NORMAL UPPER RESPIRATORY BILLY POCT glucose [[id number]] (Abnormal) Collected: 01/11/17 1006 GLUCOSE,POC SCREEN 206 (H) mg/dL Updated: 01/11/17 1010 POCT glucose [[id number]] (Abnormal) Collected: 01/11/17 0626 GLUCOSE,POC SCREEN 186 (H) mg/dL Updated: 01/11/17 0637 Basic metabolic panel [[id number]] (Abnormal) Collected: 01/11/17406 Specimen Information: Blood Updated: 01/11/17521 SODIUM 137 mmol/L POTASSIUM 4.8 mmol/L CHLORIDE 103 mmol/L CO2 27 mmol/L ANION GAP AGAP 12 mmol/L GLUCOSE 185 (H) mg/dL BUN 13 mg/dL CREATININE 0.8 mg/dL BUN/CREAT 16 CALCIUM 8.6 mg/dL EGFR >60 mL/min/1.73m2 Magnesium [[id number]] (Abnormal) Collected: 01/11/17406 Specimen Information: Blood Updated: 01/11/17521 MAGNESIUM 2.5 (H) mg/dL Phosphorus [[id number]] Collected: 01/11/17406 Specimen Information: Blood Updated: 01/11/17521 PHOSPHORUS 2.6 mg/dL CBC w/auto diff (reflex to manual) [[id number]] (Abnormal) Collected: 01/11/17406 Specimen Information: Blood Updated: 01/11/17 0512 WBC 25.36 (H) K/uL RBC 3.94 (L) M/uL HGB 11.3 (L) g/dL HCT 33.5 (L) % MCV 85.2 fl MCH 28.7 pg MCHC 33.7 g/dL RDW SD 43.3 fl PLT 222 K/uL MPV 8.1 fl DIFF TYPE MANUAL Neutrophils Manual 83 % Bands 7 % Lymphocytes Manual 4 % Monocytes Manual 6 % Neutrophils Absolute 21.05 (H) K/uL Bands Manual 1.78 (H) K/uL Lymphocytes Absolute 1.01 K/uL Monocytes Absolute 1.52 (H) K/uL MORPHOLOGY RBC AND PLT MORPHOLOGY APPEAR NORMAL Protime-INR [[id number]] Collected: 01/11/17 0407 Specimen Information: Blood Updated: 01/11/17 0445 INR 1.1 POCT glucose [[id number]] (Abnormal) Collected: 01/11/17 0209 GLUCOSE,POC SCREEN 241 (H) mg/dL Updated: 01/11/17 0236 POCT glucose [[id number]] (Abnormal) Collected: 01/10/17 2222 GLUCOSE,POC SCREEN 291 (H) mg/dL Updated: 01/10/17 2226 POCT glucose [[id number]] (Abnormal) Collected: 01/10/17 1844 GLUCOSE,POC SCREEN 209 (H) mg/dL Updated: 01/10/17 1857 POCT glucose [[id number]] (Abnormal) Collected: 01/10/17 1503 GLUCOSE,POC SCREEN 116 (H) mg/dL Updated: 01/10/17 1857 Magnesium [[id number]] Collected: 01/10/17 1607 Specimen Information: Blood Updated: 01/10/17 1631 MAGNESIUM 2.0 mg/dL Phosphorus [[id number]] Collected: 01/10/17 1607 Specimen Information: Blood Updated: 01/10/17 1631 PHOSPHORUS 3.9 mg/dL Potassium [[id number]] Collected: 01/10/17 1607 Specimen Information: Blood Updated: 01/10/17 1631 POTASSIUM 3.8 mmol/L POCT glucose [[id number]] (Abnormal) Collected: 01/10/17 0935 GLUCOSE,POC SCREEN 127 (H) mg/dL Updated: 01/10/17 1312 POCT glucose [[id number]] (Abnormal) Collected: 01/10/17 1258 GLUCOSE,POC SCREEN 119 (H) mg/dL Updated: 01/10/17 1312 POCT glucose [[id number]] (Abnormal) Collected: 01/10/17 0833 GLUCOSE,POC SCREEN 121 (H) mg/dL Updated: 01/10/17 1312 POCT glucose [[id number]] (Abnormal) Collected: 01/10/17 0728 GLUCOSE,POC SCREEN 121 (H) mg/dL Updated: 01/10/17 0731 CBC w/auto diff (reflex to manual) [[id number]] (Abnormal) Collected: 01/10/17432 Specimen Information: Blood Updated: 01/10/1703 WBC 15.91 (H) K/uL RBC 3.93 (L) M/uL HGB 11.3 (L) g/dL HCT 33.7 (L) % MCV 85.8 fl MCH 28.7 pg MCHC 33.5 g/dL RDW SD 44.6 fl PLT 220 K/uL MPV 8.1 fl DIFF TYPE MANUAL Neutrophils Manual 85 % Bands 7 % Lymphocytes Manual 4 % Monocytes Manual 4 % Neutrophils Absolute 13.52 (H) K/uL Bands Manual 1.11 (H) K/uL Lymphocytes Absolute 0.64 (L) K/uL Monocytes Absolute 0.64 K/uL MORPHOLOGY RBC AND PLT MORPHOLOGY APPEAR NORMAL Glycohemoglobin A1c [[id number]] (Abnormal) Collected: 01/10/17432 Specimen Information: Blood Updated: 01/10/17 0645 HEMOGLOBIN A1C 7.3 (H) % ESTIMATED AVG GLUCOSE 163 mg/dL Type and screen [[id number]] Collected: 01/09/17442 Specimen Information: Blood Updated: 01/10/17 0644 ABO/RH(D) A POSITIVE ANTIBODY SCREEN NEGATIVE ARM BAND NUMBER [id number] UNIT NUMBER [id number] BLOOD COMPONENT TYPE LEUKODEPLETED PC UNIT DIVISION 00 STATUS OF UNIT ISSUED,FINAL TRANSFUSION STATUS OK TO TRANSFUSE CROSSMATCH RESULT COMPATIBLE UNIT NUMBER [id number] BLOOD COMPONENT TYPE LEUKODEPLETED PC UNIT DIVISION 00 STATUS OF UNIT ISSUED,FINAL TRANSFUSION STATUS OK TO TRANSFUSE CROSSMATCH RESULT -- Result: COMPATIBLE Testing performed at [facility];[address] [place] [address] UNIT NUMBER [id number] BLOOD COMPONENT TYPE LEUKODEPLETED PC UNIT DIVISION 00 STATUS OF UNIT ALLOCATED TRANSFUSION STATUS OK TO TRANSFUSE CROSSMATCH RESULT COMPATIBLE UNIT NUMBER [id number] BLOOD COMPONENT TYPE LEUKODEPLETED PC UNIT DIVISION 00 STATUS OF UNIT ALLOCATED TRANSFUSION STATUS OK TO TRANSFUSE CROSSMATCH RESULT COMPATIBLE Prepare Plasma (Blood Bank) [[id number]] Collected: 01/09/17 1040 Additional comment: ORDER RECEIVED IN BLOOD BANK. Updated: 01/10/17 0644 UNIT NUMBER [id number] BLOOD COMPONENT TYPE PLASMA,THAWED 5 DAY UNIT DIVISION 00 STATUS OF UNIT ISSUED,FINAL TRANSFUSION STATUS OK TO TRANSFUSE UNIT NUMBER [id number] BLOOD COMPONENT TYPE PLASMA,THAWED 5 DAY UNIT DIVISION 00 STATUS OF UNIT ISSUED,FINAL TRANSFUSION STATUS -- Result: OK TO TRANSFUSE Testing performed at [facility];[address] [place] [address];[place] [address] Basic metabolic panel [[id number]] (Abnormal) Collected: 01/10/17432 Specimen Information: Blood Updated: 01/10/1739 SODIUM 142 mmol/L POTASSIUM 3.7 mmol/L CHLORIDE 108 mmol/L CO2 25 mmol/L ANION GAP AGAP 13 mmol/L GLUCOSE 166 (H) mg/dL BUN 14 mg/dL CREATININE 0.8 mg/dL BUN/CREAT 18 CALCIUM 7.8 (L) mg/dL EGFR >60 mL/min/1.73m2 Magnesium [[id number]] Collected: 01/10/17432 Specimen Information: Blood Updated: 01/10/17 0639 MAGNESIUM 2.4 mg/dL Phosphorus [[id number]] (Abnormal) Collected: 01/10/17432 Specimen Information: Blood Updated: 01/10/17 0639 PHOSPHORUS 1.8 (L) mg/dL POCT glucose [[id number]] (Abnormal) Collected: 01/10/17 045 GLUCOSE,POC SCREEN 157 (H) mg/dL Updated: 01/10/17632 POCT glucose [[id number]] (Abnormal) Collected: 01/10/17 06 GLUCOSE,POC SCREEN 163 (H) mg/dL Updated: 01/10/17632 POCT glucose [[id number]] (Abnormal) Collected: 01/10/17 0349 GLUCOSE,POC SCREEN 164 (H) mg/dL Updated: 01/10/17632 POCT glucose [[id number]] (Abnormal) Collected: 01/10/17 0246 GLUCOSE,POC SCREEN 177 (H) mg/dL Updated: 01/10/17632 POCT glucose [[id number]] (Abnormal) Collected: 01/10/17 0143 GLUCOSE,POC SCREEN 211 (H) mg/dL Updated: 01/10/17632 POCT glucose [[id number]] (Abnormal) Collected: 01/10/17 0039 GLUCOSE,POC SCREEN 210 (H) mg/dL Updated: 01/10/17632 Protime-INR [[id number]] Collected: 01/10/17 0433 Specimen Information: Blood Updated: 01/10/17 0509 INR 1.1 POCT glucose [[id number]] (Abnormal) Collected: 01/09/17 2335 GLUCOSE,POC SCREEN 274 (H) mg/dL Updated: 01/10/17 001 POCT glucose [[id number]] (Abnormal) Collected: 01/09/17 2223 GLUCOSE,POC SCREEN 290 (H) mg/dL Updated: 01/10/176 Magnesium [[id number]] Collected: 01/09/171824 Specimen Information: Blood Updated: 01/09/172024 MAGNESIUM 2.2 mg/dL Phosphorus [[id number]] Collected: 01/09/171824 Specimen Information: Blood Updated: 01/09/172024 PHOSPHORUS 3.6 mg/dL MRSA by PCR [[id number]] Collected: 01/09/171854 Specimen Information: Nasopharyngeal from Nasopharyngeal Culture Updated: 01/09/17 13 SOURCE NARES(NOSE) MRSA PCR NEGATIVE Comprehensive metabolic panel [[id number]] (Abnormal) Collected: 01/09/171824 Specimen Information: Blood Updated: 01/09/171855 SODIUM 138 mmol/L POTASSIUM 5.0 (H) mmol/L CHLORIDE 105 mmol/L CO2 26 mmol/L ANION GAP AGAP 11 mmol/L GLUCOSE 270 (H) mg/dL BUN 15 mg/dL CREATININE 0.96 mg/dL BUN/CREAT 16 CALCIUM 7.1 (L) mg/dL TOTAL PROTEIN 5.9 (L) g/dL Albumin 2.7 (L) g/dL GLOBULIN 3.2 g/dL A/G 0.8 (L) TBIL 1.1 mg/dL ALK PHOS 61 U/L AST 43 U/L ALT 42 U/L EGFR >60 mL/min/1.73m2 Calcium, ionized [[id number]] (Abnormal) Collected: 01/09/171824 Specimen Information: Blood Updated: 01/09/171854 CA++ 0.98 (L) mmol/L pH 7.367 CBC W/Auto Diff (Reflex to Manual) [[id number]] (Abnormal) Collected: 01/09/171824 Specimen Information: Blood Updated: 01/09/171854 WBC 18.34 (H) K/uL RBC 4.17 (L) M/uL HGB 12.3 (L) g/dL HCT 35.6 (L) % MCV 85.4 fl MCH 29.6 pg MCHC 34.7 g/dL RDW SD 43.3 fl PLT 219 K/uL MPV 7.5 fl DIFF TYPE AUTOMATED NEUTROPHILS 95.37 % LYMPHOCYTES 2.90 % MONOCYTES 1.55 % EOSINOPHILS 0.03 % BASOPHILS 0.15 % NEUTROPHILS ABS 17.49 (H) K/uL LYMPHOCYTES ABS 0.53 (L) K/uL MONOCYTES ABS 0.28 K/uL EOSINOPHILS ABS 0.01 K/uL BASOPHILS ABS 0.03 K/uL MORPHOLOGY RBC AND PLT MORPHOLOGY APPEAR NORMAL Diff Comment Result: SLIDE SCANNED, AGREES WITH AUTOMATED RESULTS. POCT glucose [[id number]] (Abnormal) Collected: 01/09/17 1749 GLUCOSE,POC SCREEN 241 (H) mg/dL Updated: 01/09/17 1753 POC arterial CG8+ [[id number]] (Abnormal) Collected: 01/09/17 1459 pH, Art 7.335 (L) Updated: 01/09/17 1502 POC PCO2 45 mmHg POC p02 201 (H) mmHg POC HCO3 24 mmol/L POC TCO2 25 mEq/L POC BASE DEFICIT 2 mmol/L POC S02 100 (H) % POC SODIUM 139 mEq/L POC POTASSIUM 4.3 mEq/L POC IONIZED CALCIUM 0.93 (L) mmol/L POC GLUCOSE 238 (H) mg/dL POC HCT 36 (L) % POC HGB 12.2 (L) g/dL POC arterial CG8+ [[id number]] (Abnormal) Collected: 01/09/17 1212 pH, Art 7.348 (L) Updated: 01/09/17 1216 POC PCO2 41 mmHg POC p02 205 (H) mmHg POC HCO3 23 mmol/L POC TCO2 24 mEq/L POC BASE DEFICIT 3 (H) mmol/L POC S02 100 (H) % POC SODIUM 141 mEq/L POC POTASSIUM 3.7 mEq/L POC IONIZED CALCIUM 0.92 (L) mmol/L POC GLUCOSE 185 (H) mg/dL POC HCT 31 (L) % POC HGB 10.5 (L) g/dL POC arterial CG8+ [[id number]] (Abnormal) Collected: 01/09/17 1107 pH, Art 7.343 (L) Updated: 01/09/17 1111 POC PCO2 41 mmHg POC p02 196 (H) mmHg POC HCO3 22 mmol/L POC TCO2 24 mEq/L POC BASE DEFICIT 3 (H) mmol/L POC S02 100 (H) % POC SODIUM 140 mEq/L POC POTASSIUM 3.7 mEq/L POC IONIZED CALCIUM 1.00 (L) mmol/L POC GLUCOSE 165 (H) mg/dL POC HCT 35 (L) % POC HGB 11.9 (L) g/dL POCT glucose [[id number]] (Abnormal) Collected: 01/09/17 0619 GLUCOSE,POC SCREEN 221 (H) mg/dL Updated: 01/09/17 0627 POCT glucose [[id number]] (Abnormal) Collected: 01/08/17 2102 GLUCOSE,POC SCREEN 268 (H) mg/dL Updated: 01/09/17 0606 Protime-INR [[id number]] Collected: 01/09/17 0443 Specimen Information: Blood Updated: 01/09/17 0504 INR 1.2 Recent Labs Lab 01/11/17 0407 01/10/17 0433 01/09/17 0443 01/06/17 2335 APTT -- -- -- -- 39* INR 1.1 1.1 1.2 < > 2.2 < > = values in this interval not displayed. Cta Head Neck 01/09/2017 1. Right T1 posterior elements screw extends into the right T1-T2 neural forame n. 2. Small tentorial subdural hematoma bilaterally. 3. Probable postoperative pneumocepha lidia, as above. 4. No evidence of hemodynamically significant arterial stenosis in the neck or head. 5. C6-C7 fracture, as above, with intact fusion from C3 to T2, in this patient wi th evidence of ankylosing spondylitis. Electronically signed by Arthur Rodriguez MD on 2016 6:49 PM X-ray Shoulder Right Complete 2+v 01/07/2017 FINDINGS/ IMPRESSION: 1. No acute fracture or dislocation. 2. 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 3. Osteopenia. Electronicall y signed by Cierra López on 01/07/2017 1:49 PM X-ray Knee Limited Left 01/07/2017 No acute fracture or dislocation. No bone, joint or soft tissue abnormality. Kristy ctronically signed by Omkar Lopes MD on 01/07/2017 6:58 AM X-ray Knee Limited Right 01/07/2017 No acute fracture or dislocation. No bone, joint or soft tissue abnormality. Kristy ctronically signed by Omkar Lopes MD on 01/07/2017 6:57 AM Cta Neck With Iv Contrast 01/07/2017 1. No evidence of significant hemodynamic stenosis, aneurysm, or dissection inv olving the carotid arteries in the neck. 2. Depressed fracture of the anterior wall of the left maxillary sinus with overlying soft tissue swelling and emphysema. Electronically malachi d by Raf Donnelly on 01/07/2017 11:05 AM Mri Brain Without Contrast 01/10/2017 Intraventricular and subarachnoid gas, the appearance is similar to the prior CT . No evidence of intracranial hemorrhage or recent infarct. RADIA Electronically signed by Artemio Riddle MD on Jan 10 2017 12:26AM Referring Provider Line: [phone] ID: [id number] Mri Cervical Spine Without Contrast 01/10/2017 Posterior instrumentation from C3-T2. Interval widening of the C6-C7 disk space, this is at the level of fracture in this patient with ankylosing spondylitis. Examination s lightly limited by the implanted hardware, however, the central canal is patent throughout. No evidence of intraspinal hematoma. Region of T2 signal prolongation and mild swelling with in the right cervical cord centered at the C3-C4 level. Finding is new when compared to the prior MR and is consistent with recent injury. RADIA The above findings were discussed with Dr. Parikh by Dr. Artemio Riddle at 00:42 hrs on 01/10/17. Electronically signed by Artemio Riddle MD on Jan 10 2017 12:50AM Referring Provider Line: [phone] ID: [id number] Mri C-spine Without Contrast 01/07/2017 Left thyroid mass measures up to 3.8 cm. Consider correlation with thyroid ultra sound. Changes of ankylosing spondylitis throughout the cervical and upper thoracic spine. T here is a small amount of prevertebral soft tissue edema. 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 T2 signal prolongation within the disk s pace at C6-C7. Findings represent nondisplaced fracture through the ankylosed spine at this level. RADIA Electronically signed by Artemio Riddle MD on Jan 07 2017 1:18AM Referring Prov ider Line: [phone] ID: [id number] Xr Chest 1 View 01/09/2017 1. Status post intubation and nasogastric tube placement, as above. 2. Increas ing bilateral basilar subsegmental atelectasis. 3. Status post spine fusion, with hardware partially visualized. Ct Facial Bones 01/07/2017 1. Acute displaced fracture of the anterolateral wall of the left maxillary sinu s (series 4 image 30, series 3 image 70). The fracture fragment is displaced superomedially and posteriorly into the left maxillary sinus. 2. Given the left maxillary sinus wall fractu re, there is now resulting soft tissue emphysema within the left submandibular space, left m asticator space, and left periorbital soft tissues. 3. 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 No evidence of acute fracture or malalignment involving the spine. However, given the ankylosed spine MRI of the spine is recommended, as clinically indicated, to further evalua te. RADIA Electronically signed by Divya Prieto MD on Jan 07 2017 1:30AM Referring Pro vider Line: [phone] ID: [id number] Echo Cardiac Adult Limited 01/07/2017 1. The left ventricle is normal in size, mild concentric hypertrophy and hyperdy namic systolic function EF >70%. 2. The right ventricle is moderately enlarged with normal s ystolic function. 3. The aortic valve is mildly calcified with mild aortic regurgitation. 4. There is no pericardial effusion. X-ray C-arm Fluoro Over 1 Hour 01/09/2017 1. Procedural films, as above. Ct Thoracic Lumbar Without Contrast 01/07/2017 1. Diffuse ankylosis of the spine. No evidence of acute fracture or traumatic s ubluxation. If there is continued concern for acute fracture or ligamentous injury, consider further evaluation with MRI. 2. Minimal compression of the superior endplate of L1 which i s age indeterminate. LEM LIST Principal Problem: Closed nondisplaced fracture of seventh cervical vertebra (HCC) Active Problems: Maxillary fracture, left side, initial encounter for open fracture Antiphospholipid syndrome (HCC) Controlled type 2 diabetes mellitus with hyperglycemia (HCC) Syncope and collapse Thyroid mass ASSESSMENT & PLAN POD 2 C3-T2 fusion CSF leak repair Neurologically intact No radicular symptoms Drain had CSF was removed. No fever. Wound CDI Please keep HOB 60-70 OK to transfer to floor Disposition: Unknown Code Status: Full Code Mendez Morrison MD 01/11/2017 6:59 PM Sa ric Dias MD - 01/11/2017 4:53 PM PDTFormatting of this note might be different from the origi nal. Significant Event by Jossie Saravia MD at 01/11/171652 Author: Jossie Saravia MD Service: Hospitalist Author Type: Physician Filed: 01/11/171652 Date of Service: 01/11/171652 Status: Signed Food Service Helper: Jossie Saravia MD (Physician) Patient accepted under hospitalist service from ICU onversion Transactio n, Provider Unknown - 01/11/2017 3:52 PM PDT Therapy Progress Note by HOLLY Perales/Ayesha at 01/11/17 1886 Author: JOZEF Perales Service: (none) Author Type: Occupational Therapist Filed: 01/11/173 Date of Service: 01/11/171551 Status: Signed Food Service Helper: Radha Phillip OTR/Ayesha (Occupational Therapist) 01/11/17 2230 Precautions Spinal Precautions Cervical Other Precautions HOB elevated to 60-70 Home Environment Bathroom Equipment Tub transfer bench Additional Comments See PT note for Home Environment Prior Function Comments See PT note for PLOF ADL Additional Comments Pt was seated in the bedside chair when OT arrived for evaluaiton. 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 Reviewed with pt the AE available and provided the AE handout. Pt stated he h as had numerous pieces of equipment over th eyears including many reachers and sock aids. D oes not currently have a station chief but was interested in obtaining equipment again at this munir e due to current precautions. Vision-Basic Assessment Current Vision No visual deficits Cognition Overall Cognitive Status WFL Orientation Level Oriented Sensation Additional Comments n/t R arm up and across shoulders to left shoulder. Soles of feet. (Pt reports R arm feels cold compared to L.) RUE Assessment RUE Assessment (Appears WFL, not formally tested with cerv. precautions/pain) LUE Assessment LUE Assessment (Appears WFL, not formally tested with cerv. precautions/pain) Hand Function Gross Grasp Functional Assessment Assessment Decreased ADL status;Decreased self-care trans;Decreased high-level ADLs Prognosis Good Goal Formulation Patient ADL Goals Pt Will Perform Bathing With mod assist (with assist for [place] collar) Pt Will Perform UE Dressing At edge of bed;With min assist;With assist to don/doff splints/ brace/orthosis Pt Will Perform LE Dressing At edge of bed;With adaptive equipment;With min assist Plan Treatment Interventions ADL retraining;IADL retraining;Functional transfer training;Functio nal dynamic activities;Equipment eval/education;Continued evaluation Progress (Initiate OT POC) OT Frequency 2-4 x/wk Care Duration (Days) 10 Days Requires OT Follow Up Yes Recommendation Recommendation Return to prior living conditions (home with assist from family) OT Ready for Discharge Yes 01/11/17 8397 OT Last Visit OT Received On 01/11/17 Reason for Treatment Spinal surgery Requires OT Follow Up Yes OT Eval/Reassessment Date 01/11/17 Assistance Required 1 person Training Development Director Needed No Family/Caregiver Present No Precautions Spinal Precautions Cervical Other Precautions HOB elevated to 60-70 Other Comments Comments Per H&P, "The patient is a 66 y.o. male with significant past medical history of a nkylosing spondylitis, diabetes type II, deep vein thrombosis, iron deficiency anemia, testi cular hypofunction, obesity, hypertension, dyslipidemia, abdomen disorder, transient ischemi c attack, non ambulatory ankylosing spondylitis, who presents to transfer from [facility] with a C7 fracture, left maxillary sinus fracture, thyroid mass and syncope. Main complaints at the outlining facility were left sided face swelling, neck pain, confusion and difficulty remembering anything. Per history, patient woke up in a chair, went into the bat hroom and found things in disarray. Granddaughter was then notified by neighbors that they h eard a crashing sound earlier around 1:30. During the day patient had being a but wa s in the his usual state of health, came home and went to sleep on his recliner. He cannot r emember anything that happened, next thing that he was clear in his mind was his granddaught er asking questions. Patient denies any chest pain, shortness of breath, headache, dizziness , confusion, fever, chills or illness prior to his syncopal episode/ amnestic event. Reports chronic right shoulder pain." Pt is s/p C3-4, 3-5, 5-6, 6-7, C7-T1, T1-2 posterior pedicle lateral mass instrumented fusion. Pt was seated in the bedside chair wearing aspen collar when OT arrived. Chart reviewed, evaluation completed. Activity Tolerance Activity Tolerance Patient tolerated treatment well Safety Devices Safety Devices in Place Yes Type of Devices Call lite in place Plan Treatment Interventions ADL retraining;IADL retraining;Functional transfer training;Functio nal dynamic activities;Equipment eval/education;Continued evaluation Progress (Initiate OT POC) OT Frequency 2-4 x/wk Care Duration (Days) 10 Days Recommendation Recommendation Return to prior living conditions (home with assist from family) OT Ready for Discharge Yes Education Completed: Education Topic: OT role, AE, D/C planning Completed with: Patient Completed by: Verbal Education, Written Material Response to Education: Stated Understanding Focus for next session: Trial AE/ADL's Follow up OT only? No Barriers to d/c at this time include: Self-care deficits impacting functional independence Low - 66337 Moderate - 16304 High - 13163 History Expanded review of medical records; additional review of physical, cognitive, or p sychosocial skills Examination Identification of 3-5 performance deficits Decision Making May present with comorbidities; minimal to moderate modification of tasks or assistance is needed to complete eval Clinical Decision Making Complexity: Moderate [id number] onver jacki Khanaction, Provider Unknown - 01/11/2017 1:48 PM PDT Case Management by JAMIE Tracey at 01/11/17 1348 Author: JAMIE Tracey Service: (none) Author Type: Fpga Engineer Filed: 01/11/17 8430 Date of Service: 01/11/17 1348 Status: Signed Food Service Helper: JAMIE Tracey (Fpga Engineer) CM met with Pt for follow up discharge planning. Pt stated he will be returning home and t hat his Grandson will be staying with him. He also has a Granddaughter that is his paid JEWEL STRIPPER ES caregiver. PT evaluation done with recommendation for return home with assist. No addit ional therapies or DME needed at this time. onver jacki Transaction, Provider Unknown - 01/11/2017 10:20 AM PDT Therapy Progress Note by Mabel Jackson PT at 01/11/17 1020 Author: Mabel Jackson PT Service: (none) Author Type: Physical Therapist Filed: 01/11/17 1104 Date of Service: 01/11/17 1020 Status: Signed Food Service Helper: Mabel Jackson PT (Physical Therapist) 01/11/17 1020 PT Last Visit PT Received On 01/11/17 Reason for Treatment Spinal surgery (C7 fx, cervical fusion) Requires PT Follow Up Yes Follow up PT Only? No Assistance Required 1 person Training Development Director Needed No Precautions Spinal Precautions Cervical Other Precautions HOB elevated to 60 Other Comments Comments Pt supine in bed with HOB elevated to 60 when PT arrived, agreeable to therapy. Pt reports 8/10 pain Vitals at rest: HR 93, SpO2 95% on RA, BP 180/77 - cleared by RN to axel haywood. Pt progressing well with mobility. Greatest difficulty currently noted with bed mobilit y. Requiring assistance to off wt LEs while moving them OOB. Pt hesitant with initial standi ng. No buckling noted with STS. Tolerated ambulation well. trendelenberg gait noted indicati ng possible hip weakness. LE strength assessment appears symmetical, Ornament Setter weakness stiff kaleigh dent on R hand. Ended session reclined in chair, call light in reach, all needs met. Cognition Overall Cognitive Status WFL Orientation Level Oriented Bed Mobility Supine to Sit Mod assist (BLEs OOB or trunk to upright) Transfers Sit to/from Stand Minimal assist (steadying/contact guard) Mobility Ambulation Assistance Minimal assist Maximal Ambulation Distance (feet) 100ft Total Ambulation Distance (feet) 100ft Distance limited by? Patient's ability Pattern Alternating;Decreased khalif;Right swing foot doesn't pass stance foot;Left swing foot doesn't pass stance foot;[place] Assistive Device Walker front wheeled Activity Tolerance Activity Tolerance Patient tolerated treatment without report of fatigue Nurse Made Aware yes Safety Devices Safety Devices in Place (call light) Plan Treatment/Interventions Continue per Primary PT POC Progress Progressing toward goals Recommendation Recommendations Defer Recommendation Comments Pt progressing well with therapy. Anticipate pt will continue to pr ogress and be able to d/c home with assist. Kay Cedeno CCC-OXYGEN FURNACE OPERATOR - 01/11/2017 9:58 AM PDTFormatting of this note might be different fr om the original. Therapy Progress Note by Kay Mckeon CCC-OXYGEN FURNACE OPERATOR at 01/11/17 0919 Author: Kay Mckeon CCC-OXYGEN FURNACE OPERATOR Service: (none) Author Type: Speech and Language Patho logist Filed: 01/11/17 1023 Date of Service: 01/11/17957 Status: Signed Food Service Helper: Kay Mckeon CCC-OXYGEN FURNACE OPERATOR (Speech and Language Pathologist) 01/11/17957 OXYGEN FURNACE OPERATOR Last Visit OXYGEN FURNACE OPERATOR Received On 01/11/17 Requires OXYGEN FURNACE OPERATOR Follow Up Yes Swallowing Assessment Eval Swallowing Treatment Yes Initial Swallow Assessment Respiratory Status Room air Behavior/Cognition Alert;Cooperative Dentition Dentures upper Vision Functional for self-feeding Patient Positioning Upright in bed Baseline Vocal Quality Normal Thin Presentation Straw Oral Phase Thin WFL Pharyngeal Phase No overt signs or symptoms of aspiration Regular Presentation Self Fed Oral Phase WFL Pharyngeal Phase No overt signs or symptoms of aspiration Recommendations Liquids Consistency Recommendations Thin Diet Consistency Recommendation Regular Recommendations Dysphagia treatment;Set up with meals;Check on patients frequently throught out meals Risk for Aspiration Mild Compensatory Swallowing Strategies Upright as possible for all oral intake;Remain upright f or 30 minutes after meals;Slow rate presentation;Small bites/sips;Eat/feed slowly Recommended Form of Meds Meds with recommended liquid Summary Pt seen for follow up swallow tx after spinal surgery. Rn reports no difficulty wit h swallowing. Pt seen with breakfast tray with thin liquids and regular textures with no ove rt s/s of aspiration. ST continues to recommend regular textures and thin liquids. ST to dis charge at this time as pt is tolerating current diet. No further tx is reommended. Staff Notified RN Plan of Care Treatment Plan Discharge from at this time;No futher therapy recommended AVS Documentation Yes Diet Regular: no restrictions Liquids Thin liquids: regular consistency OXYGEN FURNACE OPERATOR Ready for Discharge Yes Dysphagia Goals Calendar Control Clerk Blood Bank Goals Safe/efficient oral intake Pt will have safe/efficient oral intake Thin liquids;Regular diet;New/revised goal;Goal me t Short Term Goals Follow swallow precautions Pt will follow swallow precautions With min supervision;Goal met Dahlia Rios ARNP - 01/11/2017 9:55 AM PDTFormatting of this note might be different from the tomasa manley Progress Notes by BRI Mejia at 01/11/17954 Author: BRI Mejia Service: (none) Author Type: Nurse Practitioner Filed: 01/11/17 1221 Date of Service: 01/11/17954 Status: Signed Food Service Helper: BRI Mejia (Nurse Practitioner) [facility] Service: Senior Staff Psychologist Progress Note Jose Rafael Walker 66 y.o. Hospital Day: LOS: 4 days Post-Op Day: Day of Surgery Consulting Physicians Treatment Team: Consulting Physician: Mendez Morrison MD Admitting Provider: Moni Dumont DO SUBJECTIVE Patient Summary: From Dr. Dumont's H&P "The patient is a 66 y.o. male with significant past medical history of ankylosing spondyli tis, diabetes type II, deep vein thrombosis, iron deficiency anemia, testicular hypofunction , obesity, hypertension, dyslipidemia, abdomen disorder, transient ischemic attack, non ambu latory ankylosing spondylitis, who presents to transfer from [facility] with a C 7 fracture, left maxillary sinus fracture, thyroid mass and syncope. Main complaints at the outlining facility were left sided face swelling, neck pain, confusion and difficulty rememb ering anything. Per history, patient woke up in a chair, went into the bathroom and found th ings in disarray. Granddaughter was then notified by neighbors that they heard a crashing so und earlier around 1:30. During the day patient had being a but was in the his usual state of health, came home and went to sleep on his recliner. He cannot remember anything t hat happened, next thing that he was clear in his mind was his granddaughter asking question s. Patient denies any chest pain, shortness of breath, headache, dizziness, confusion, fever , chills or illness prior to his syncopal episode/ amnestic event. Reports chronic right oly ulder pain. Reports neck pain with movement of his legs or any part of his body. He denies a ny dysphagia. ED findings: C7 fracture, leukocytosis, hypokalemia, thyroid mass, left maxill douglas sinus fracture" Admitted to the hospitalist service and worked up for surgical clearance. Patient underwen t C3-T2 fusion by neurosurgery and transferred to the ICU post opertatively. ICU Timeline: 01/09: ICU admission s/p C3-T2 fusion. Difficult intubation. RUE/RLE motor weakness-MRI b rain, cervical spine pending. 01/10: Remained intubated. Swelling much improved. MRI cervical spine with mild swelling within the right cervical cord centered at the C3-C4 level-weakness in RUE/RLE resolved. Sta ble VS. Off sedation. Pt extubated in afternoon. Events Overnight: No acute overnight events. SCHEDULED MEDICATIONS allopurinol 100 mg Oral Daily bisacodyl 10 mg Rectal Daily calcium carbonate-vitamin D 1 tablet Oral BID WC dexamethasone 6 mg Intravenous Q6H hydrochlorothiazide 25 mg Oral Daily insulin detemir 59 Units Subcutaneous BID insulin lispro (human) 6-18 Units Subcutaneous Q4H levothyroxine 50 mcg Oral QAM AC lisinopril 10 mg Oral Daily morphine 60 mg Oral 2 times per day pantoprazole 40 mg Intravenous QAM AC sodium phosphate 45 mmol Intravenous Once zinc sulfate 220 mg Oral Daily CONTINUOUS INFUSIONS dextrose OBJECTIVE VITAL SIGNS Temp: [97.7 F (36.5 C)-99 F (37.2 C)] 98.3 F (36.8 C) Heart Rate: [69-105] 72 Resp: [11-30] 20 BP: (132-164)/(56-75) 154/73 mmHg FiO2 : [25 %-30 %] 25 % Intake/Output Summary (Last 24 hours) at 01/11/17 0955 Last data filed at 01/11/17 0900 Gross per 24 hour Intake 5641 ml Output 6660 ml Net -1019 ml EXAM GEN: 66 year old obese male. Up in chair with C-Collar on. Awake, alert, and oriented NEURO: Pupils equal and reactive to light, EOMI, sensation intact, no facial asymmetry note d, sensation intact, BUE/BLE with 5/5 strength. HEENT: Sclera clear. Nonicteric. Oral mmm, pink. Ecchymosis noted on left cheek and abrasio n on chin. NECK: C-Collar on HEART: Heart tones regular. S1,S2. No murmurs, clicks, or rubs. Cap refill <3 seconds LUNGS: breath sounds clear dim in bases. No wheezing, crackles or rhonchi. ABD: Abdomen is soft and nontender to palpation. Nondistended. Bowel sounds present. Hernia noted. Multiple abdominal scars EXTR: 1+ edema, no clubbing or cyanosis; multiple areas of ecchymosis noted around right kn ee. SKIN: warm, dry, intact. No rash or mottling. No e/o skin breakdown over the occiput, scapu lae, elbows, sacrum or heels. LINES: PIV, mo, arterial line 01/09. DATA Recent Labs Lab 01/11/17 0407 01/10/17 0433 01/09/17 1825 01/07/17 0608 01/06/17 2335 WBC 25.36* 15.91* 18.34* -- 9.71 11.78* RBC 3.94* 3.93* 4.17* -- 5.07 4.78 HGB 11.3* 11.3* 12.3* < > 14.6 13.9 HCT 33.5* 33.7* 35.6* < > 43.1 40.2 MCV 85.2 85.8 85.4 -- 85.0 84.0 MCH 28.7 28.7 29.6 -- 28.8 29.0 MCHC 33.7 33.5 34.7 -- 33.9 34.5 RDW 43.3 44.6 43.3 -- 44.2 44.6 PLT 222 220 219 -- 243 240 MPV 8.1 8.1 7.5 -- 7.7 7.1 BANDSABS 1.78* 1.11* -- -- -- -- NEUTROABS -- -- 17.49* -- 7.34 8.86* LYMPHSABS -- -- 0.53* -- 1.37 1.86 MONOSABS -- -- 0.28 -- 0.78 0.86* BASOSABS -- -- 0.03 -- 0.06 0.07 EOSABS -- -- 0.01 -- 0.16 0.13 MORPH RBC AND PLT MORPHOLOGY APPEAR NORMAL RBC AND PLT MORPHOLOGY APPEAR NORMAL RBC AND PLT MORPHOLOGY APPEAR NORMAL -- -- -- < > = values in this interval not displayed. Recent Labs Lab 01/11/17 0407 01/10/17 1607 01/10/17 0433 01/09/17 1825 01/06/17 2335 NA 137 -- 142 138 < > 137 K 4.8 3.8 3.7 5.0* < > 3.4* CL 103 -- 108 105 < > 102 CO2 27 -- 25 26 < > 25 ANIONGAP 12 -- 13 11 < > 14 GLUF 185* -- 166* 270* < > 182* BUN 13 -- 14 15 < > 12 CREATININE 0.8 -- 0.8 0.96 < > 1.0 BCR 16 -- 18 16 < > 12 CA 8.6 -- 7.8* 7.1* < > 8.3* ALB -- -- -- 2.7* -- 3.0* GLOB -- -- -- 3.2 -- 3.8 AG -- -- -- 0.8* -- 0.8* PROT -- -- -- 5.9* -- 6.8 BILITOT -- -- -- 1.1 -- 1.0 ALT -- -- -- 42 -- 45 AST -- -- -- 43 -- 32 EGFR >60 -- >60 >60 < > >60 PHOS 2.6 3.9 1.8* 3.6 < > -- MG 2.5* 2.0 2.4 2.2 < > -- < > = values in this interval not displayed. Recent Labs Lab 01/11/17 0407 01/10/17 0433 01/09/17 0443 INR 1.1 1.1 1.2 IMAGING Mri Brain Without Contrast 01/10/2017 Intraventricular and subarachnoid gas, the appearance is similar to the prior CT . No evidence of intracranial hemorrhage or recent infarct. RADIA Electronically signed by Artemio Riddle MD on Jan 10 2017 12:26AM Referring Provider Line: [phone] ID: [id number] Mri Cervical Spine Without Contrast 01/10/2017 Posterior instrumentation from C3-T2. Interval widening of the C6-C7 disk space, this is at the level of fracture in this patient with ankylosing spondylitis. Examination s lightly limited by the implanted hardware, however, the central canal is patent throughout. No evidence of intraspinal hematoma. Region of T2 signal prolongation and mild swelling with in the right cervical cord centered at the C3-C4 level. Finding is new when compared to the prior MR and is consistent with recent injury. RADIA The above findings were discussed with Dr. Parikh by Dr. Artemio Riddle at 00:42 hrs on 01/10/17. Electronically signed by Artemio Riddle MD on Jan 10 2017 12:50AM Referring Provider Line: [phone] ID: [id number] Xr Chest 1 View 01/09/2017 1. Status post intubation and nasogastric tube placement, as above. 2. Increas ing bilateral basilar subsegmental atelectasis. 3. Status post spine fusion, with hardware partially visualized. LEM LIST Principal Problem: Closed nondisplaced fracture of seventh cervical vertebra (HCC) Active Problems: Maxillary fracture, left side, initial encounter for open fracture Antiphospholipid syndrome (HCC) Controlled type 2 diabetes mellitus with hyperglycemia (HCC) Syncope and collapse Thyroid mass Resolved Problems: * No resolved hospital problems. * ASSESSMENT & PLAN NEURO: Cervical fracture after a fall in the setting of ankylosing spondylitis: s/p fusion of C 3-T2 by Neurosurgery: Remains in C-Collar. Surgical ED drain in place. Maintain HOB elevated to 60-70 degress per neurosurgery. PT/OT. Fall precautions. Post surgical management per NS . Right upper and lower motor weakness likely secondary to mild swelling within right ante rior cervical cord at C3-C4 level: Resolved Getting decadron Q 6 hours x 48 hours. Monitor. CV: Hypertension: resumed home lisinopril. PULM: Extubated and on room air. No acute issues. GI/NUTRITION: Diabetic diet. RENAL/LYTES: No acute issues. Monitor renal function, I/O, and electrolytes. Avoid nephrotoxic medications. Monitor and replace electrolytes per protocol. ID: No acute issues. Received keflex for maxillary fracture. No antibiotics at this time. HEME: H/H stable preoperatively. Monitor CBC and coags. Antiphospholipid syndrome on chronic anticoagulation: resume coumadin 4-5 days post op p er neurosurgery and hematology recommendations. Leukocytosis likely reactive in the setting of surgery and steroid use. ENDO: Insulin dependent type 2 diabetes: goal BG 80-180. On SSI. Hypothyroidism: continue home synthroid. Thyroid Mass on CT imaging. Incidental finding. Suggest outpatient follow up. MUSC/SKIN: Left maxillary fracture open fracture: Dr. Gaming ENT consulted. No acute intervention recommended. Turn and assess skin per protocol. PT/OT PROPHYLAXIS: Stress ulcer prophylaxis: Protonix DVT prophylaxis: No chemical VTE prophylaxis until cleared by neurosurgery. SCDs only fo r now. VAP bundle: chlorhexadine oral care, HOB >30 degrees. Disposition: Transfer to acute care Code Status: Full Code *Please bill 35 minutes of high complexity time spent evaluating the patient, reviewing the data and formulating a plan exclusive of all other procedures. BRI Mejia 01/11/2017 onversion Transacti on, Provider Unknown - 01/10/2017 1:45 PM PDTFormatting of this note might be different fro m the original. Progress Notes by Faustino Dinero RRT at 01/10/17 1345 Author: Faustino Dinero RRT Service: (none) Author Type: Registered Respiratory Therapi st Filed: 01/10/17 1347 Date of Service: 01/10/17 1345 Status: Signed Food Service Helper: Faustino Dinero RRT (Registered Respiratory Therapist) Patient extubate @ 1340 to 3L Oxymask. Patient able to vocalize name. No complaints of di stress. Anesthesia, Senior Staff Psychologist, MODEL DRESSER, RN and Lead CONDITIONER TENDER present in room during extubation . Jose rios, Mendez Nicole MD - 01/10/2017 1:10 PM PDT Progress Notes by Mendez Morrison MD at 01/10/17 1310 Author: Mendez Morrison MD Service: Neurosurgery Author Type: Physician Filed: 01/10/17 3583 Date of Service: 01/10/17 1310 Status: Signed Food Service Helper: Mendez Morrison MD (Physician) [facility] Service: Neurosurgery Progress Note Hospital Day: LOS: 3 days Post-Op Day: 1 Day Post-Op Surgery/Procedure: Procedure(s) (LRB): CERVICAL - FUSION - POSTERIOR (N/A) SUBJECTIVE Patient Summary: Right side weakness progressively improving to being almost normal s trength Events Overnight: No other acute events. Kept intubated overnight as patient had signi ficant edema of the face Scheduled Medications [START ON 01/11/2017] allopurinol 100 mg Oral Daily bisacodyl 10 mg Rectal Daily calcium carbonate-vitamin D 1 tablet Oral BID WC chlorhexidine gluconate 15 mL Mouth/Throat Q12H dexamethasone 6 mg Intravenous Q6H levothyroxine 50 mcg Oral QAM AC lisinopril 10 mg Oral Daily pantoprazole 40 mg Intravenous QAM AC sodium phosphate 45 mmol Intravenous Once zinc sulfate 220 mg Oral Daily Continuous Infusions dextrose fentaNYL in NS 5 mcg/mL 100 mcg/hr (01/10/17 0623) niCARdipine in NaCl Stopped (01/09/17 3776) propofol 30 mcg/kg/min (01/10/17 0400) PRN Medications acetaminophen OR acetaminophen, carboxymethylcellulose, dextrose, docusate sodium OR* * docusate, fentaNYL OR fentaNYL, magnesium sulfate OR magnesium sulfate OR magn esium sulfate OR magnesium sulfate, morphine, nystatin, nystatin, ondansetron OR ond ansetron, petrolatum, phosphorus OR sodium phosphate IVPB 20 mmol OR sodium phosphat e IVPB 45 mmol, polyethylene glycol, potassium chloride OR potassium chloride OR pot assium chloride OBJECTIVE Vital Signs: BP 159/73 mmHg | Pulse 91 | Temp(Src) 98.6 F (37 C) (Oral) | Resp 26 | Ht 1.778 m (5' 1 0") | Wt 118.6 kg (261 lb 7.5 oz) | BMI 37.52 kg/m2 | SpO2 99% Alert, awake, writes and communicate appropriately Briskly follows command on all 4 extremities craft demonstrator intact R D 5 T5 B5 HG4+ DI4+ R D5 T5 B5 HG5 DI5 B LE 5/5 Sensation intact B UE and LE No radicular pain or sensory loss especially in the right T1 dermatome MRI shows edema in the right anterior segment of Spinal cord at C3-4 level probably related to traction Right T 1 nerve root seems to be exiting below and not involved in the T1 extrapedicular sc rew Wound CDI Drain 195cc bloody DATA Recent Labs Lab 01/10/17 0433 01/09/17 1825 01/09/17 1459 01/07/17 0608 WBC 15.91* 18.34* -- -- 9.71 RBC 3.93* 4.17* -- -- 5.07 HGB 11.3* 12.3* 12.2* < > 14.6 HCT 33.7* 35.6* 36* < > 43.1 MCV 85.8 85.4 -- -- 85.0 MCH 28.7 29.6 -- -- 28.8 MCHC 33.5 34.7 -- -- 33.9 RDW 44.6 43.3 -- -- 44.2 PLT 220 219 -- -- 243 MPV 8.1 7.5 -- -- 7.7 DIFFTYPE MANUAL AUTOMATED -- -- AUTOMATED < > = values in this interval not displayed. Results Procedure Component Value Units Date/Time Sputum cult w/ gram stain [[id number]] Collected: 01/09/17 1844 Specimen Information: Nasopharyngeal from Sputum Updated: 01/10/17 1207 Specimen Description SPUTUM GRAM STAIN GREATER THAN 10 WBCS/LPF GRAM STAIN LESS THAN 10 SEC/LPF GRAM STAIN 1+ GRAM STAIN GRAM POSITIVE COCCI CULTURE CULTURE IN PROGRESS POCT glucose [[id number]] (Abnormal) Collected: 01/10/1728 GLUCOSE,POC SCREEN 121 (H) mg/dL Updated: 01/10/1731 CBC w/auto diff (reflex to manual) [[id number]] (Abnormal) Collected: 01/10/17432 Specimen Information: Blood Updated: 01/10/17702 WBC 15.91 (H) K/uL RBC 3.93 (L) M/uL HGB 11.3 (L) g/dL HCT 33.7 (L) % MCV 85.8 fl MCH 28.7 pg MCHC 33.5 g/dL RDW SD 44.6 fl PLT 220 K/uL MPV 8.1 fl DIFF TYPE MANUAL Neutrophils Manual 85 % Bands 7 % Lymphocytes Manual 4 % Monocytes Manual 4 % Neutrophils Absolute 13.52 (H) K/uL Bands Manual 1.11 (H) K/uL Lymphocytes Absolute 0.64 (L) K/uL Monocytes Absolute 0.64 K/uL MORPHOLOGY RBC AND PLT MORPHOLOGY APPEAR NORMAL Glycohemoglobin A1c [[id number]] (Abnormal) Collected: 01/10/17432 Specimen Information: Blood Updated: 01/10/17 0645 HEMOGLOBIN A1C 7.3 (H) % ESTIMATED AVG GLUCOSE 163 mg/dL Type and screen [[id number]] Collected: 01/09/17442 Specimen Information: Blood Updated: 01/10/1744 ABO/RH(D) A POSITIVE ANTIBODY SCREEN NEGATIVE ARM BAND NUMBER [id number] UNIT NUMBER [id number] BLOOD COMPONENT TYPE LEUKODEPLETED PC UNIT DIVISION 00 STATUS OF UNIT ISSUED,FINAL TRANSFUSION STATUS OK TO TRANSFUSE CROSSMATCH RESULT COMPATIBLE UNIT NUMBER [id number] BLOOD COMPONENT TYPE LEUKODEPLETED PC UNIT DIVISION 00 STATUS OF UNIT ISSUED,FINAL TRANSFUSION STATUS OK TO TRANSFUSE CROSSMATCH RESULT -- Result: COMPATIBLE Testing performed at [facility] [place];[address] [place] [id number] UNIT NUMBER [id number] BLOOD COMPONENT TYPE LEUKODEPLETED PC UNIT DIVISION 00 STATUS OF UNIT ALLOCATED TRANSFUSION STATUS OK TO TRANSFUSE CROSSMATCH RESULT COMPATIBLE UNIT NUMBER [id number] BLOOD COMPONENT TYPE LEUKODEPLETED PC UNIT DIVISION 00 STATUS OF UNIT ALLOCATED TRANSFUSION STATUS OK TO TRANSFUSE CROSSMATCH RESULT COMPATIBLE Prepare Plasma (Blood Bank) [[id number]] Collected: 01/09/17 1040 Additional comment: ORDER RECEIVED IN BLOOD BANK. Updated: 01/10/17643 UNIT NUMBER [id number] BLOOD COMPONENT TYPE PLASMA,THAWED 5 DAY UNIT DIVISION 00 STATUS OF UNIT ISSUED,FINAL TRANSFUSION STATUS OK TO TRANSFUSE UNIT NUMBER [id number] BLOOD COMPONENT TYPE PLASMA,THAWED 5 DAY UNIT DIVISION 00 STATUS OF UNIT ISSUED,FINAL TRANSFUSION STATUS -- Result: OK TO TRANSFUSE Testing performed at [facility] [place];[address] [place] [address] Basic metabolic panel [[id number]] (Abnormal) Collected: 01/10/17432 Specimen Information: Blood Updated: 01/10/17638 SODIUM 142 mmol/L POTASSIUM 3.7 mmol/L CHLORIDE 108 mmol/L CO2 25 mmol/L ANION GAP AGAP 13 mmol/L GLUCOSE 166 (H) mg/dL BUN 14 mg/dL CREATININE 0.8 mg/dL BUN/CREAT 18 CALCIUM 7.8 (L) mg/dL EGFR >60 mL/min/1.73m2 Magnesium [[id number]] Collected: 01/10/17432 Specimen Information: Blood Updated: 01/10/17638 MAGNESIUM 2.4 mg/dL Phosphorus [[id number]] (Abnormal) Collected: 01/10/17432 Specimen Information: Blood Updated: 01/10/1739 PHOSPHORUS 1.8 (L) mg/dL POCT glucose [[id number]] (Abnormal) Collected: 01/10/17452 GLUCOSE,POC SCREEN 157 (H) mg/dL Updated: 01/10/17632 POCT glucose [[id number]] (Abnormal) Collected: 01/10/17622 GLUCOSE,POC SCREEN 163 (H) mg/dL Updated: 01/10/17632 POCT glucose [[id number]] (Abnormal) Collected: 01/10/17 0349 GLUCOSE,POC SCREEN 164 (H) mg/dL Updated: 01/10/17632 POCT glucose [[id number]] (Abnormal) Collected: 01/10/17 0246 GLUCOSE,POC SCREEN 177 (H) mg/dL Updated: 01/10/17632 POCT glucose [[id number]] (Abnormal) Collected: 01/10/17 0143 GLUCOSE,POC SCREEN 211 (H) mg/dL Updated: 01/10/17632 POCT glucose [[id number]] (Abnormal) Collected: 01/10/17 0039 GLUCOSE,POC SCREEN 210 (H) mg/dL Updated: 01/10/17632 Protime-INR [[id number]] Collected: 01/10/17 0433 Specimen Information: Blood Updated: 01/10/17 0509 INR 1.1 POCT glucose [[id number]] (Abnormal) Collected: 01/09/17 2335 GLUCOSE,POC SCREEN 274 (H) mg/dL Updated: 01/10/17 0016 POCT glucose [[id number]] (Abnormal) Collected: 01/09/17 2223 GLUCOSE,POC SCREEN 290 (H) mg/dL Updated: 01/10/17 0016 Magnesium [[id number]] Collected: 01/09/171824 Specimen Information: Blood Updated: 01/09/172024 MAGNESIUM 2.2 mg/dL Phosphorus [[id number]] Collected: 01/09/171824 Specimen Information: Blood Updated: 01/09/172024 PHOSPHORUS 3.6 mg/dL MRSA by PCR [[id number]] Collected: 01/09/171854 Specimen Information: Nasopharyngeal from Nasopharyngeal Culture Updated: 01/09/17 SOURCE NARES(NOSE) MRSA PCR NEGATIVE Comprehensive metabolic panel [[id number]] (Abnormal) Collected: 01/09/171824 Specimen Information: Blood Updated: 01/09/171855 SODIUM 138 mmol/L POTASSIUM 5.0 (H) mmol/L CHLORIDE 105 mmol/L CO2 26 mmol/L ANION GAP AGAP 11 mmol/L GLUCOSE 270 (H) mg/dL BUN 15 mg/dL CREATININE 0.96 mg/dL BUN/CREAT 16 CALCIUM 7.1 (L) mg/dL TOTAL PROTEIN 5.9 (L) g/dL Albumin 2.7 (L) g/dL GLOBULIN 3.2 g/dL A/G 0.8 (L) TBIL 1.1 mg/dL ALK PHOS 61 U/L AST 43 U/L ALT 42 U/L EGFR >60 mL/min/1.73m2 Calcium, ionized [[id number]] (Abnormal) Collected: 01/09/171824 Specimen Information: Blood Updated: 01/09/171854 CA++ 0.98 (L) mmol/L pH 7.367 CBC W/Auto Diff (Reflex to Manual) [[id number]] (Abnormal) Collected: 01/09/171824 Specimen Information: Blood Updated: 01/09/171854 WBC 18.34 (H) K/uL RBC 4.17 (L) M/uL HGB 12.3 (L) g/dL HCT 35.6 (L) % MCV 85.4 fl MCH 29.6 pg MCHC 34.7 g/dL RDW SD 43.3 fl PLT 219 K/uL MPV 7.5 fl DIFF TYPE AUTOMATED NEUTROPHILS 95.37 % LYMPHOCYTES 2.90 % MONOCYTES 1.55 % EOSINOPHILS 0.03 % BASOPHILS 0.15 % NEUTROPHILS ABS 17.49 (H) K/uL LYMPHOCYTES ABS 0.53 (L) K/uL MONOCYTES ABS 0.28 K/uL EOSINOPHILS ABS 0.01 K/uL BASOPHILS ABS 0.03 K/uL MORPHOLOGY RBC AND PLT MORPHOLOGY APPEAR NORMAL Diff Comment Result: SLIDE SCANNED, AGREES WITH AUTOMATED RESULTS. POCT glucose [[id number]] (Abnormal) Collected: 01/09/17 1749 GLUCOSE,POC SCREEN 241 (H) mg/dL Updated: 01/09/17 1753 POC arterial CG8+ [[id number]] (Abnormal) Collected: 01/09/17 1459 pH, Art 7.335 (L) Updated: 01/09/17 1502 POC PCO2 45 mmHg POC p02 201 (H) mmHg POC HCO3 24 mmol/L POC TCO2 25 mEq/L POC BASE DEFICIT 2 mmol/L POC S02 100 (H) % POC SODIUM 139 mEq/L POC POTASSIUM 4.3 mEq/L POC IONIZED CALCIUM 0.93 (L) mmol/L POC GLUCOSE 238 (H) mg/dL POC HCT 36 (L) % POC HGB 12.2 (L) g/dL POC arterial CG8+ [[id number]] (Abnormal) Collected: 01/09/17 1212 pH, Art 7.348 (L) Updated: 01/09/17 1216 POC PCO2 41 mmHg POC p02 205 (H) mmHg POC HCO3 23 mmol/L POC TCO2 24 mEq/L POC BASE DEFICIT 3 (H) mmol/L POC S02 100 (H) % POC SODIUM 141 mEq/L POC POTASSIUM 3.7 mEq/L POC IONIZED CALCIUM 0.92 (L) mmol/L POC GLUCOSE 185 (H) mg/dL POC HCT 31 (L) % POC HGB 10.5 (L) g/dL POC arterial CG8+ [[id number]] (Abnormal) Collected: 01/09/17 1107 pH, Art 7.343 (L) Updated: 01/09/17 1111 POC PCO2 41 mmHg POC p02 196 (H) mmHg POC HCO3 22 mmol/L POC TCO2 24 mEq/L POC BASE DEFICIT 3 (H) mmol/L POC S02 100 (H) % POC SODIUM 140 mEq/L POC POTASSIUM 3.7 mEq/L POC IONIZED CALCIUM 1.00 (L) mmol/L POC GLUCOSE 165 (H) mg/dL POC HCT 35 (L) % POC HGB 11.9 (L) g/dL POCT glucose [[id number]] (Abnormal) Collected: 01/09/17 0619 GLUCOSE,POC SCREEN 221 (H) mg/dL Updated: 01/09/17 0627 POCT glucose [[id number]] (Abnormal) Collected: 01/08/17 2102 GLUCOSE,POC SCREEN 268 (H) mg/dL Updated: 01/09/17 0606 Protime-INR [[id number]] Collected: 01/09/17 0443 Specimen Information: Blood Updated: 01/09/17 0504 INR 1.2 POCT glucose [[id number]] (Abnormal) Collected: 01/08/17 1605 GLUCOSE,POC SCREEN 202 (H) mg/dL Updated: 01/08/17 1608 Urine culture [[id number]] Collected: 01/07/17 0752 Specimen Information: Urine from Urine, Catheter Updated: 01/08/17 1539 Specimen Description CATHETERIZED URINE CULTURE NO GROWTH POCT glucose [[id number]] (Abnormal) Collected: 01/08/17 1123 GLUCOSE,POC SCREEN 205 (H) mg/dL Updated: 01/08/17 1129 Protime-INR [[id number]] Collected: 01/08/17 0625 Specimen Information: Blood Updated: 01/08/17 0649 INR 1.5 POCT glucose [[id number]] (Abnormal) Collected: 01/08/17 0526 GLUCOSE,POC SCREEN 158 (H) mg/dL Updated: 01/08/17 0533 POCT glucose [[id number]] (Abnormal) Collected: 01/08/17 0003 GLUCOSE,POC SCREEN 212 (H) mg/dL Updated: 01/08/17 0015 POCT glucose [[id number]] (Abnormal) Collected: 01/07/17 1741 GLUCOSE,POC SCREEN 190 (H) mg/dL Updated: 01/07/17 2135 Recent Labs Lab 01/10/17 0433 01/09/17 0443 01/08/17 0625 01/06/17 2335 APTT -- -- -- 39* INR 1.1 1.2 1.5 2.2 Cta Head Neck 01/09/2017 1. Right T1 posterior elements screw extends into the right T1-T2 neural forame n. 2. Small tentorial subdural hematoma bilaterally. 3. Probable postoperative pneumocepha lidia, as above. 4. No evidence of hemodynamically significant arterial stenosis in the neck or head. 5. C6-C7 fracture, as above, with intact fusion from C3 to T2, in this patient wi th evidence of ankylosing spondylitis. Electronically signed by Arthur Rodriguez MD on 2016 6:49 PM X-ray Shoulder Right Complete 2+v 01/07/2017 FINDINGS/ IMPRESSION: 1. No acute fracture or dislocation. 2. 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 3. Osteopenia. Electronicall y signed by Cierra López on 01/07/2017 1:49 PM X-ray Knee Limited Left 01/07/2017 No acute fracture or dislocation. No bone, joint or soft tissue abnormality. Kristy ctronically signed by Omkar Lopes MD on 01/07/2017 6:58 AM X-ray Knee Limited Right 01/07/2017 No acute fracture or dislocation. No bone, joint or soft tissue abnormality. Kristy ctronically signed by Omkar Lopes MD on 01/07/2017 6:57 AM Cta Neck With Iv Contrast 01/07/2017 1. No evidence of significant hemodynamic stenosis, aneurysm, or dissection inv olving the carotid arteries in the neck. 2. Depressed fracture of the anterior wall of the left maxillary sinus with overlying soft tissue swelling and emphysema. Electronically malachi d by Raf Donnelly on 01/07/2017 11:05 AM Mri Brain Without Contrast 01/10/2017 Intraventricular and subarachnoid gas, the appearance is similar to the prior CT . No evidence of intracranial hemorrhage or recent infarct. RADIA Electronically signed by Artemio Riddle MD on Jan 10 2017 12:26AM Referring Provider Line: [phone] ID: [id number] Mri Cervical Spine Without Contrast 01/10/2017 Posterior instrumentation from C3-T2. Interval widening of the C6-C7 disk space, this is at the level of fracture in this patient with ankylosing spondylitis. Examination s lightly limited by the implanted hardware, however, the central canal is patent throughout. No evidence of intraspinal hematoma. Region of T2 signal prolongation and mild swelling with in the right cervical cord centered at the C3-C4 level. Finding is new when compared to the prior MR and is consistent with recent injury. RADIA The above findings were discussed with Dr. Parikh by Dr. Artemio Riddle at 00:42 hrs on 01/10/17. Electronically signed by Artemio Riddle MD on Jan 10 2017 12:50AM Referring Provider Line: [phone] ID: [id number] Mri C-spine Without Contrast 01/07/2017 Left thyroid mass measures up to 3.8 cm. Consider correlation with thyroid ultra sound. Changes of ankylosing spondylitis throughout the cervical and upper thoracic spine. T here is a small amount of prevertebral soft tissue edema. 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 T2 signal prolongation within the disk s pace at C6-C7. Findings represent nondisplaced fracture through the ankylosed spine at this level. RADIA Electronically signed by Artemio Riddle MD on Jan 07 2017 1:18AM Referring Prov ider Line: [phone] ID: [id number] Xr Chest 1 View 01/09/2017 1. Status post intubation and nasogastric tube placement, as above. 2. Increas ing bilateral basilar subsegmental atelectasis. 3. Status post spine fusion, with hardware partially visualized. Ct Facial Bones 01/07/2017 1. Acute displaced fracture of the anterolateral wall of the left maxillary sinu s (series 4 image 30, series 3 image 70). The fracture fragment is displaced superomedially and posteriorly into the left maxillary sinus. 2. Given the left maxillary sinus wall fractu re, there is now resulting soft tissue emphysema within the left submandibular space, left m asticator space, and left periorbital soft tissues. 3. 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 No evidence of acute fracture or malalignment involving the spine. However, given the ankylosed spine MRI of the spine is recommended, as clinically indicated, to further evalua te. RADIA Electronically signed by Divya Prieto MD on Jan 07 2017 1:30AM Referring Pro vider Line: [phone] ID: [id number] Echo Cardiac Adult Limited 01/07/2017 1. The left ventricle is normal in size, mild concentric hypertrophy and hyperdy namic systolic function EF >70%. 2. The right ventricle is moderately enlarged with normal s ystolic function. 3. The aortic valve is mildly calcified with mild aortic regurgitation. 4. There is no pericardial effusion. X-ray C-arm Fluoro Over 1 Hour 01/09/2017 1. Procedural films, as above. Ct Thoracic Lumbar Without Contrast 01/07/2017 1. Diffuse ankylosis of the spine. No evidence of acute fracture or traumatic s ubluxation. If there is continued concern for acute fracture or ligamentous injury, consider further evaluation with MRI. 2. Minimal compression of the superior endplate of L1 which i s age indeterminate. LEM LIST Principal Problem: Closed nondisplaced fracture of seventh cervical vertebra (HCC) Active Problems: Maxillary fracture, left side, initial encounter for open fracture Antiphospholipid syndrome (HCC) Controlled type 2 diabetes mellitus with hyperglycemia (HCC) Syncope and collapse Thyroid mass ASSESSMENT & PLAN POD C3-T2 fusion CSF leak repair Cord signal change at C3-4 post op Progressive improvement in R sided strength since post op Minimal residual right hand weakness which is improving No radicular pain or sensory loss Drain has no CSF Keep HOB at 60-70 Extubate OOB with PT in a C collar Xray c spine upright in a collar Disposition: Unknown Code Status: Full Code Mendez Morrison MD 01/10/2017 1:10 PM onversio n Transaction, Provider Unknown - 01/10/2017 12:55 PM PDTFormatting of this note might be di fferent from the original. Therapy Progress Note by Mabel Jackson PT at 01/10/17 1255 Author: Mabel Jackson PT Service: (none) Author Type: Physical Therapist Filed: 01/10/17 1345 Date of Service: 01/10/17 1255 Status: Signed Food Service Helper: Mabel Jackson PT (Physical Therapist) 01/10/17 1255 PT Last Visit PT Received On 01/10/17 Reason for Treatment Spinal surgery;Other (comment) (C7 fx, cervical fusion) Requires PT Follow Up Unavailable Other Comments Comments preparing to extubate pt. PT to return later as able. onver jacki Transaction, Provider Unknown - 01/10/2017 12:31 PM PDT Progress Notes by Faustino Dinero RRT at 01/10/17 1231 Author: Faustino Dinero RRT Service: (none) Author Type: Registered Respiratory Therapi st Filed: 01/10/17 1231 Date of Service: 01/10/17 1231 Status: Signed Food Service Helper: Faustino Dinero RRT (Registered Respiratory Therapist) NIF -60 anasa Santos ARNP - 01/10/2017 7:55 AM PDTFormatting of this note might be different from th e original. Progress Notes by BRI Hernandez at 01/10/17 4957 Author: BRI Hernandez Service: Senior Staff Psychologist Author Type: Advanced Registered Nicky se Practitioner Filed: 01/10/17 1534 Date of Service: 01/10/17 9608 Status: Signed Food Service Helper: BRI Hernandez (Advanced Registered Nurse Practitioner) [facility] Service: Senior Staff Psychologist Progress Note Jose Rafael Walker 66 y.o. Hospital Day: LOS: 3 days Post-Op Day: Day of Surgery Consulting Physicians Treatment Team: Consulting Physician: Mendez Morrison MD Admitting Provider: Moni Dumont DO SUBJECTIVE Patient Summary: From Dr. Dumont's H&P "The patient is a 66 y.o. male with significant past medical history of ankylosing spondyli tis, diabetes type II, deep vein thrombosis, iron deficiency anemia, testicular hypofunction , obesity, hypertension, dyslipidemia, abdomen disorder, transient ischemic attack, non ambu latory ankylosing spondylitis, who presents to transfer from [facility] with a C 7 fracture, left maxillary sinus fracture, thyroid mass and syncope. Main complaints at the outlining facility were left sided face swelling, neck pain, confusion and difficulty rememb ering anything. Per history, patient woke up in a chair, went into the bathroom and found th ings in disarray. Granddaughter was then notified by neighbors that they heard a crashing so und earlier around 1:30. During the day patient had being a but was in the his usual state of health, came home and went to sleep on his recliner. He cannot remember anything t hat happened, next thing that he was clear in his mind was his granddaughter asking question s. Patient denies any chest pain, shortness of breath, headache, dizziness, confusion, fever , chills or illness prior to his syncopal episode/ amnestic event. Reports chronic right oly ulder pain. Reports neck pain with movement of his legs or any part of his body. He denies a ny dysphagia. ED findings: C7 fracture, leukocytosis, hypokalemia, thyroid mass, left maxill douglas sinus fracture" Admitted to the hospitalist service and worked up for surgical clearance. Patient underwen t C3-T2 fusion by neurosurgery and transferred to the ICU post opertatively. ICU Timeline: 01/09: ICU admission s/p C3-T2 fusion. Difficult intubation. RUE/RLE motor weakness-MRI b rain, cervical spine pending. Events Overnight: Remained intubated. Swelling much improved. MRI cervical spine with mild swelling within the right cervical cord centered at the C3-C4 level-weakness in RUE/RL E resolved. Stable VS. Off sedation. SCHEDULED MEDICATIONS bisacodyl 10 mg Rectal Daily calcium carbonate-vitamin D 1 tablet Oral BID chlorhexidine gluconate 15 mL Mouth/Throat Q12H EPINEPHrine (1:10,000) famotidine 20 mg Oral BID Or famotidine 20 mg Intravenous BID levothyroxine 50 mcg Oral QAM AC pantoprazole 40 mg Intravenous QAM AC zinc sulfate 220 mg Oral Daily CONTINUOUS INFUSIONS dextrose dextrose 5% lactated ringers 50 mL/hr at 01/10/17399 fentaNYL in NS 5 mcg/mL 100 mcg/hr (01/10/17622) insulin regular 1 unit/mL 18 Units/hr (01/09/172238) niCARdipine in NaCl Stopped (01/09/172255) propofol 30 mcg/kg/min (01/10/17399) sodium chloride (IV) 30 mL/hr at 01/10/17399 OBJECTIVE VITAL SIGNS Temp: [98.2 F (36.8 C)-99.2 F (37.3 C)] 99.2 F (37.3 C) Heart Rate: [71-85] 74 Resp: [14-20] 14 BP: (97-160)/(51-88) 133/62 mmHg Arterial Line BP: (144-204)/(54-76) 144/56 mmHg FiO2 : [30 %-99 %] 35 % Intake/Output Summary (Last 24 hours) at 01/10/17 0755 Last data filed at 01/10/17 0623 Gross per 24 hour Intake 8144 ml Output 3685 ml Net 4459 ml EXAM (Intubated during exam) GEN: 66 year old obese male. Lying in bed in [facility] with C-Collar on. Intubated. Awake, alert, and appropriately writing notes on clipboard. NEURO: Pupils equal and reactive to light, EOMI, sensation intact, no facial asymmetry note d, sensation intact, BUE/BLE with 5/5 strength. HEENT: Sclera clear. Nonicteric. Oral mmm, pink. Ecchymosis noted on left cheek and abrasio n on chin. OETT, OGT NECK: C-Collar on HEART: Heart tones regular. S1,S2. No murmurs, clicks, or rubs. Cap refill <3 seconds LUNGS: Symmetrical expansion during inhalation and exhalation. Anterior lung sounds auscult ated and are clear throughout. No wheezing, crackles or rhonchi. ABD: Abdomen is soft and nontender to palpation. Nondistended. Bowel sounds present. Hernia noted. Multiple abdominal scars EXTR: no edema, clubbing or cyanosis; multiple areas of ecchymosis noted around right knee. SKIN: warm, dry, intact. No rash or mottling. No e/o skin breakdown over the occiput, scapu lae, elbows, sacrum or heels. LINES: PIV, mo, arterial line 01/09. DATA Recent Labs Lab 01/10/17 0433 01/09/17 1825 01/09/17 1459 01/07/17 0608 01/06/17 2335 WBC 15.91* 18.34* -- -- 9.71 11.78* RBC 3.93* 4.17* -- -- 5.07 4.78 HGB 11.3* 12.3* 12.2* < > 14.6 13.9 HCT 33.7* 35.6* 36* < > 43.1 40.2 MCV 85.8 85.4 -- -- 85.0 84.0 MCH 28.7 29.6 -- -- 28.8 29.0 MCHC 33.5 34.7 -- -- 33.9 34.5 RDW 44.6 43.3 -- -- 44.2 44.6 PLT 220 219 -- -- 243 240 MPV 8.1 7.5 -- -- 7.7 7.1 BANDSABS 1.11* -- -- -- -- -- NEUTROABS -- 17.49* -- -- 7.34 8.86* LYMPHSABS -- 0.53* -- -- 1.37 1.86 MONOSABS -- 0.28 -- -- 0.78 0.86* BASOSABS -- 0.03 -- -- 0.06 0.07 EOSABS -- 0.01 -- -- 0.16 0.13 MORPH RBC AND PLT MORPHOLOGY APPEAR NORMAL RBC AND PLT MORPHOLOGY APPEAR NORMAL -- -- -- -- < > = values in this interval not displayed. Recent Labs Lab 01/10/17 0433 01/09/17 1825 01/09/17 1459 01/07/17 0608 01/06/17 2335 NA 142 138 -- -- 139 137 K 3.7 5.0* 4.3 < > 3.9 3.4* CL 108 105 -- -- 104 102 CO2 25 26 -- -- 24 25 ANIONGAP 13 11 -- -- 15 14 GLUF 166* 270* -- -- 178* 182* BUN 14 15 -- -- 14 12 CREATININE 0.8 0.96 -- -- 1.0 1.0 BCR 18 16 -- -- 14 12 CA 7.8* 7.1* -- -- 9.0 8.3* ALB -- 2.7* -- -- -- 3.0* GLOB -- 3.2 -- -- -- 3.8 AG -- 0.8* -- -- -- 0.8* PROT -- 5.9* -- -- -- 6.8 BILITOT -- 1.1 -- -- -- 1.0 ALT -- 42 -- -- -- 45 AST -- 43 -- -- -- 32 EGFR >60 >60 -- -- >60 >60 PHOS 1.8* 3.6 -- -- 3.1 -- MG 2.4 2.2 -- -- 2.2 -- < > = values in this interval not displayed. Recent Labs Lab 01/10/17 0433 01/09/17 0443 01/08/17 0625 INR 1.1 1.2 1.5 IMAGING Mri Brain Without Contrast 01/10/2017 Intraventricular and subarachnoid gas, the appearance is similar to the prior CT . No evidence of intracranial hemorrhage or recent infarct. RADIA Electronically signed by Artemio Riddle MD on Jan 10 2017 12:26AM Referring Provider Line: [phone] ID: [id number] Mri Cervical Spine Without Contrast 01/10/2017 Posterior instrumentation from C3-T2. Interval widening of the C6-C7 disk space, this is at the level of fracture in this patient with ankylosing spondylitis. Examination s lightly limited by the implanted hardware, however, the central canal is patent throughout. No evidence of intraspinal hematoma. Region of T2 signal prolongation and mild swelling with in the right cervical cord centered at the C3-C4 level. Finding is new when compared to the prior MR and is consistent with recent injury. RADIA The above findings were discussed with Dr. Parikh by Dr. Artemio Riddle at 00:42 hrs on 01/10/17. Electronically signed by Artemio Riddle MD on Jan 10 2017 12:50AM Referring Provider Line: [phone] ID: [id number] PROBLEM LIST Principal Problem: Closed nondisplaced fracture of seventh cervical vertebra (HCC) Active Problems: Maxillary fracture, left side, initial encounter for open fracture Antiphospholipid syndrome (HCC) Controlled type 2 diabetes mellitus with hyperglycemia (HCC) Syncope and collapse Thyroid mass Resolved Problems: * No resolved hospital problems. * ASSESSMENT & PLAN NEURO: Cervical fracture after a fall in the setting of ankylosing spondylitis: s/p fusion of C 3-T2 by Neurosurgery: Remains in C-Collar. Surgical ED drain in place. Maintain HOB elevated to 60-70 degress per neurosurgery. PT/OT. Fall precautions. Post surgical management per NS . Right upper and lower motor weakness likely secondary to mild swelling within right ante rior cervical cord at C3-C4 level: Resolved today. Getting decadron Q 6 hours x 48 hours. Mo nitor. CV: Hypertension: resumed home lisinopril. PULM: Extubated and on room air. No acute issues. GI/NUTRITION: Advance diet as tolerated once passes swallow evaluation. RENAL/LYTES: No acute issues. Monitor renal function, I/O, and electrolytes. Avoid nephrotoxic medications. Monitor and replace electrolytes per protocol. ID: No acute issues. Received keflex for maxillary fracture. No antibiotics at this time. No leukocytosis, afebrile. HEME: H/H stable preoperatively. Monitor CBC and coags. Antiphospholipid syndrome on chronic anticoagulation: post op anticoagulation and resump tion of coumadin per neurosurgery and hematology recommendations. Leukocytosis likely reactive in the setting of surgery and steroid use. Trending down. ENDO: Insulin dependent type 2 diabetes: goal BG 80-180. Continue endotool until stable and th en transition to SSI. Hypothyroidism: continue home synthroid. Thyroid Mass on CT imaging. Incidental finding. Suggest outpatient follow up. MUSC/SKIN: Left maxillary fracture open fracture: Dr. Gaming ENT consulted. No acute intervention recommended. Turn and assess skin per protocol. PT/OT PROPHYLAXIS: Stress ulcer prophylaxis: Protonix DVT prophylaxis: No chemical VTE prophylaxis until cleared by neurosurgery. SCDs only fo r now. VAP bundle: chlorhexadine oral care, HOB >30 degrees. Disposition: ICU Plan of care as above. Patient and family updated regarding plan. Code Status: Full Code *Please bill 45 minutes of critical care time spent evaluating the patient, reviewing the d seng and formulating a plan exclusive of all other procedures. BRI Hernandez 01/10/2017 onversion Transa ction, Provider Unknown - 01/10/2017 7:26 AM PDT Progress Notes by Faustino Dinero RRT at 01/10/17725 Author: Faustino Dinero RRT Service: (none) Author Type: Registered Respiratory Therapi st Filed: 01/10/17822 Date of Service: 01/10/17725 Status: Signed Food Service Helper: Faustino Dinero RRT (Registered Respiratory Therapist) SBT started today at 0726 am - 108 30% , patient tolerating well oManasa del rio ARNP - 01/09/2017 1:57 PM PDTFormatting of this note might be different from th e original. Progress Notes by BRI Hernandez at 01/09/17 6383 Author: BRI Hernandez Service: Senior Staff Psychologist Author Type: Advanced Registered Nicky se Practitioner Filed: 01/09/171954 Date of Service: 01/09/17 4147 Status: Signed Food Service Helper: BRI Hernandez (Advanced Registered Nurse Practitioner) [facility] Service: Senior Staff Psychologist Progress Note Jose Rafael Walker 66 y.o. Hospital Day: LOS: 2 days Post-Op Day: Day of Surgery Consulting Physicians Treatment Team: Consulting Physician: Mendez Morrison MD Admitting Provider: Moni Hercl, DO SUBJECTIVE Patient Summary: From Dr. Dumont's H&P "The patient is a 66 y.o. male with significant past medical history of ankylosing spondyli tis, diabetes type II, deep vein thrombosis, iron deficiency anemia, testicular hypofunction , obesity, hypertension, dyslipidemia, abdomen disorder, transient ischemic attack, non ambu latory ankylosing spondylitis, who presents to transfer from [facility] with a C 7 fracture, left maxillary sinus fracture, thyroid mass and syncope. Main complaints at the outlining facility were left sided face swelling, neck pain, confusion and difficulty rememb ering anything. Per history, patient woke up in a chair, went into the bathroom and found th ings in disarray. Granddaughter was then notified by neighbors that they heard a crashing so und earlier around 1:30. During the day patient had being a but was in the his usual state of health, came home and went to sleep on his recliner. He cannot remember anything t hat happened, next thing that he was clear in his mind was his granddaughter asking question s. Patient denies any chest pain, shortness of breath, headache, dizziness, confusion, fever , chills or illness prior to his syncopal episode/ amnestic event. Reports chronic right oly ulder pain. Reports neck pain with movement of his legs or any part of his body. He denies a ny dysphagia. ED findings: C7 fracture, leukocytosis, hypokalemia, thyroid mass, left maxill douglas sinus fracture" Admitted to the hospitalist service and worked up for surgical clearance. Patient underwen t C3-T2 fusion by neurosurgery and transferred to the ICU post opertatively. ICU Timeline: 01/09: ICU admission s/p C3-T2 fusion. Difficult intubation. RUE/RLE motor weakness-MRI b rain, cervical spine pending. Events Overnight: SCHEDULED MEDICATIONS [OCT Hold] allopurinol 100 mg Oral Daily bisacodyl 10 mg Rectal Daily [OCT Hold] cephALEXin 500 mg Oral Q6H [OCT Hold] enoxaparin 40 mg Subcutaneous Q24H famotidine 20 mg Oral BID Or famotidine 20 mg Intravenous BID [OCT Hold] folic acid 1 mg Oral Daily [OCT Hold] hydrochlorothiazide 25 mg Oral Daily [OCT Hold] insulin lispro (human) 0-10 Units Subcutaneous TID AC [OCT Hold] insulin lispro (human) 0-5 Units Subcutaneous Nightly [OCT Hold] levothyroxine 50 mcg Oral QAM AC [OCT Hold] lisinopril 10 mg Oral Daily CONTINUOUS INFUSIONS dextrose dextrose 5 % and 0.9 % NaCl Stopped (01/08/17 1247) electrolyte-A 30 mL/hr at 01/09/17 0740 OBJECTIVE VITAL SIGNS Temp: [98.1 F (36.7 C)-98.9 F (37.2 C)] 98.4 F (36.9 C) Heart Rate: [80-93] 80 Resp: [18] 18 BP: (144-156)/(65-95) 144/65 mmHg FiO2 : [52 %-99 %] 53 % Intake/Output Summary (Last 24 hours) at 01/09/17 1406 Last data filed at 01/09/17 1332 Gross per 24 hour Intake 5196 ml Output 3225 ml Net 1971 ml EXAM GEN: 66 year old obese male. Intubated. Lying in bed in NAD. Intubated with C-Collar on. NEURO: Pupils equal and reactive to light, awakens when sedation off. Follows commands appr opriately. LUE/LLE with good movement and moderate strength. RUE/RLE much weaker-able to wea kly grasp with right hand/unable to lift arm off bed. RLE able to move toes but unable to li ft leg off bed. HEENT: Face swollen with significant periorbital edema. Sclera clear. Ecchymosis noted on l eft cheek and abrasion on chin. OETT, OGT NECK: C-Collar on HEART: Heart tones regular. S1,S2. No murmurs, clicks, or rubs. Cap refill <3 seconds LUNGS: Symmetrical expansion during inhalation and exhalation. Anterior lung sounds auscult ated and are clear throughout. No wheezing, crackles or rhonchi. ABD: Abdomen is soft and nontender to palpation. Nondistended. Bowel sounds present. Hernia noted. Multiple abdominal scars EXTR: no edema, clubbing or cyanosis; multiple areas of ecchymosis noted around right knee. SKIN: warm, dry, intact. No rash or mottling. No e/o skin breakdown over the occiput, scapu lae, elbows, sacrum or heels. LINES: PIV, mo, arterial line 01/09. DATA Recent Labs Lab 01/09/17 12101/09/17 1107 01/07/17 0601/06/172334 WBC -- -- 9.71 11.78* RBC -- -- 5.07 4.78 HGB 10.5* 11.9* 14.6 13.9 HCT 31* 35* 43.1 40.2 MCV -- -- 85.0 84.0 MCH -- -- 28.8 29.0 MCHC -- -- 33.9 34.5 RDW -- -- 44.2 44.6 PLT -- -- 243 240 MPV -- -- 7.7 7.1 NEUTROABS -- -- 7.34 8.86* LYMPHSABS -- -- 1.37 1.86 MONOSABS -- -- 0.78 0.86* BASOSABS -- -- 0.06 0.07 EOSABS -- -- 0.16 0.13 Recent Labs Lab 01/09/17 12101/09/17 1107 01/07/17 0601/06/172334 NA -- -- 139 137 K 3.7 3.7 3.9 3.4* CL -- -- 104 102 CO2 -- -- 24 25 ANIONGAP -- -- 15 14 GLUF -- -- 178* 182* BUN -- -- 14 12 CREATININE -- -- 1.0 1.0 BCR -- -- 14 12 CA -- -- 9.0 8.3* ALB -- -- -- 3.0* GLOB -- -- -- 3.8 AG -- -- -- 0.8* PROT -- -- -- 6.8 BILITOT -- -- -- 1.0 ALT -- -- -- 45 AST -- -- -- 32 EGFR -- -- >60 >60 PHOS -- -- 3.1 -- MG -- -- 2.2 -- Recent Labs Lab 01/09/17 0443 01/08/17 0625 01/06/175 INR 1.2 1.5 2.2 IMAGING Cta Head Neck 01/09/2017 1. Right T1 posterior elements screw extends into the right T1-T2 neural forame n. 2. Small tentorial subdural hematoma bilaterally. 3. Probable postoperative pneumocephal us, as above. 4. No evidence of hemodynamically significant arterial stenosis in the neck o r head. 5. C6-C7 fracture, as above, with intact fusion from C3 to T2, in this patient with evidence of ankylosing spondylitis. Electronically signed by Arthur Rodriguez MD on 7 6:49 PM Cta Neck With Iv Contrast 01/07/2017 1. No evidence of significant hemodynamic stenosis, aneurysm, or dissection inv olving the carotid arteries in the neck. 2. Depressed fracture of the anterior wall of the left maxillary sinus with overlying soft tissue swelling and emphysema. Electronically malachi d by Raf Donnelly on 01/07/2017 11:05 AM Mri C-spine Without Contrast 01/07/2017 Left thyroid mass measures up to 3.8 cm. Consider correlation with thyroid ultra sound. Changes of ankylosing spondylitis throughout the cervical and upper thoracic spine. T here is a small amount of prevertebral soft tissue edema. 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 T2 signal prolongation within the disk s pace at C6-C7. Findings represent nondisplaced fracture through the ankylosed spine at this level. RADIA Electronically signed by Artemio Riddle MD on Jan 07 2017 1:18AM Referring Prov ider Line: [phone] ID: [id number] Ct Facial Bones 01/07/2017 1. Acute displaced fracture of the anterolateral wall of the left maxillary sinu s (series 4 image 30, series 3 image 70). The fracture fragment is displaced superomedially and posteriorly into the left maxillary sinus. 2. Given the left maxillary sinus wall fractu re, there is now resulting soft tissue emphysema within the left submandibular space, left m asticator space, and left periorbital soft tissues. 3. 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 No evidence of acute fracture or malalignment involving the spine. However, given the ankylosed spine MRI of the spine is recommended, as clinically indicated, to further evalua te. RADIA Electronically signed by Divya Prieto MD on Jan 07 2017 1:30AM Referring Pro vider Line: [phone] ID: [id number] Echo Cardiac Adult Limited 01/07/2017 1. The left ventricle is normal in size, mild concentric hypertrophy and hyperdy namic systolic function EF >70%. 2. The right ventricle is moderately enlarged with normal s ystolic function. 3. The aortic valve is mildly calcified with mild aortic regurgitation. 4. There is no pericardial effusion. X-ray C-arm Fluoro Over 1 [place] 01/09/2017 1. Procedural films, as above. Ct Thoracic Lumbar Without Contrast 01/07/2017 1. Diffuse ankylosis of the spine. No evidence of acute fracture or traumatic s ubluxation. If there is continued concern for acute fracture or ligamentous injury, consider further evaluation with MRI. 2. Minimal compression of the superior endplate of L1 which i s age indeterminate. LEM LIST Principal Problem: Closed nondisplaced fracture of seventh cervical vertebra (HCC) Active Problems: Maxillary fracture, left side, initial encounter for open fracture Antiphospholipid syndrome ([facility]) Controlled type 2 diabetes mellitus with hyperglycemia ([facility]) Syncope and collapse Thyroid mass Resolved Problems: * No resolved hospital problems. * ASSESSMENT & PLAN NEURO: Cervical fracture after a fall in the setting of ankylosing spondylitis: s/p fusion of C 3-T2 by Neurosurgery: Remains in C-Collar. Surgical ED drain in place. Maintain HOB elevated to 60-70 degress per neurosurgery. Will need PT/OT once cleared. Fall precautions. Post ni gical management per NS. Right sided weakness possibly secondary to acute infarct versus sedation effects. Less l ikely related to spinal cord injury as unilateral and sensation intact. MRI brain and cervic al spine without contrast ordered. Will maintain SBP < 160 per NS recommendations. CV: No acute issues. Patient hemodynamically stable at this time. Will maintain SBP<160 per NS recommendations. Cardene ordered for BP control. Hypertension: holding chronic PO antihypertensive medication at this time. Will cover cardene drip if needed for now. PULM: Intubated for procedure. Reported as a DIFFICULT INTUBATION requiring awake fiberoptic i ntubation. The patient's face is very swollen s/p OR procedure. Will wait until swelling dec reases before extubating. GI/NUTRITION: NPO for procedure. RENAL/LYTES: No acute issues. Monitor renal function, I/O, and electrolytes. Avoid nephrotoxic medications. Monitor and replace electrolytes per protocol. ID: No acute issues. Received keflex for maxillary fracture. No antibiotics at this time. No leukocytosis, afebrile. HEME: H/H stable preoperatively. Monitor CBC and coags. Antiphospholipid syndrome on chronic anticoagulation: post op anticoagulation and resump tion of coumadin per neurosurgery recommendations. May need heparin drip to bridge. Mild leukocytosis on 01/06: resolved now. ENDO: Insulin dependent type 2 diabetes: goal BG 80-180. SSI Hypothyroidism: continue home synthroid. Thyroid Mass on CT imaging. Incidental finding. Suggest outpatient follow up. MUSC/SKIN: Left maxillary fracture open fracture: Dr. Gaming ENT consulted. No acute intervention recommended. Turn and assess skin per protocol. PT/OT when cleared with neurosurgery. PROPHYLAXIS: Stress ulcer prophylaxis: DVT prophylaxis: No chemical VTE prophylaxis until cleared by neurosurgery. SCDs only fo r now. VAP bundle: chlorhexadine oral care, HOB >30 degrees. Disposition: ICU Plan of care as above. Code Status: Full Code *Please bill 60 minutes of critical care time spent evaluating the patient, reviewing the d seng and formulating a plan exclusive of all other procedures. BRI Hernandez 01/09/2017 onversion Transa ction, Provider Unknown - 01/08/2017 10:59 PM PDT Nurse Progress Note by Melissa Gomez RN at 01/08/17 4252 Author: Melissa Gomez RN Service: (none) Author Type: Registered Nurse Filed: 01/08/17 2725 Date of Service: 01/08/172258 Status: Signed Food Service Helper: Melissa Gomez RN (Registered Nurse) 24 hour chart check complete Melissa Gomez RN Vy Lott MD - 01/08/2017 8:36 PM PDTFormatting of this note might be different from the o riginal. Progress Notes by Vy Rodrigues MD at 01/08/172035 Author: Vy Rodrigues MD Service: (none) Author Type: Physician Filed: 01/08/172042 Date of Service: 01/08/172035 Status: Signed Food Service Helper: Vy Rodrigues MD (Physician) [facility] Service: Hospitalist Progress Note Hospital Day: LOS: 1 day Post-Op Day: * No surgery date entered * Procedure: Procedure(s) (LRB): CERVICAL - FUSION - POSTERIOR (N/A) SUBJECTIVE Patient resting comfortably in bed. No acute events over the night. Awaiting for surgery in a.m. At baseline patient denies having any chest pain, shortness of breath. Easily climb up a flight of stairs or walk a block without any difficulty. Does not use a cane or a walke r. Scheduled Medications allopurinol 100 mg Oral Daily bisacodyl 10 mg Rectal Daily cephALEXin 500 mg Oral Q6H famotidine 20 mg Oral BID Or famotidine 20 mg Intravenous BID folic acid 1 mg Oral Daily hydrochlorothiazide 25 mg Oral Daily insulin lispro (human) 0-10 Units Subcutaneous TID AC insulin lispro (human) 0-5 Units Subcutaneous Nightly [START ON 01/09/2017] levothyroxine 50 mcg Oral QAM AC lisinopril 10 mg Oral Daily Continuous Infusions dextrose dextrose 5 % and 0.9 % NaCl Stopped (01/08/17 1247) OBJECTIVE Vital Signs: BP 156/95 mmHg | Pulse 90 | Temp(Src) 98.5 F (36.9 C) (Oral) | Resp 18 | Ht 1.778 m (5' 10") | Wt 111.6 kg (246 lb 0.5 oz) | BMI 35.30 kg/m2 | SpO2 97% Patient is awake, alert, oriented to time, place and person Skin: Warm and supple Neck: Patient is in a c-collar. Chest: Normal vesicular breath sounds, good air entry bilaterally CVS: S1S2 audible, no murmurs heard Abdomen: Soft, non tender, normal bowel sounds, no organomegaly Extremities: No pedal edema, clubbing or cyanosis Neurologic examination: No focal sensory or motor deficits Back examination: No CVA tenderness, no spinal tenderness REVIEW OF SYSTEMS: Denies any chest pain, shortness of breath, nausea, vomiting, dysuria. Mo catheter removed today. DATA CBC: Lab Results Component Value Date WBC 9.71 01/07/2017 RBC 5.07 01/07/2017 HGB 14.6 01/07/2017 HCT 43.1 01/07/2017 MCV 85.0 01/07/2017 MCH 28.8 01/07/2017 MCHC 33.9 01/07/2017 RDW 44.2 01/07/2017 PLT 243 01/07/2017 MPV 7.7 01/07/2017 DIFFTYPE AUTOMATED 01/07/2017 CMP: Lab Results Component Value Date NA 139 01/07/2017 K 3.9 01/07/2017 CL 104 01/07/2017 CO2 24 01/07/2017 ANIONGAP 15 01/07/2017 GLUF 178* 01/07/2017 BUN 14 01/07/2017 CREATININE 1.0 01/07/2017 BCR 14 01/07/2017 CA 9.0 01/07/2017 PROT 6.8 01/06/2017 ALB 3.0* 01/06/2017 GLOB 3.8 01/06/2017 BILITOT 1.0 01/06/2017 ALP 70 01/06/2017 AST 32 01/06/2017 ALT 45 01/06/2017 EGFR >60 01/07/2017 ASSESSMENT & PLAN Unknown circumstances of fall with cervical fracture: In c-collar for now. Plan for surgery in morning. Neurosurgery has been on board. Easily meets METS 4. No ongoing signs of cardia c decompensation or active symptoms. Can be cleared for surgery with moderate risk. Speech evaluation called for risks for aspiration. Maxillary sinus fracture: ENT was consulted and recommends and can stay any antibiotics or intervention. Preop Keflex has been ordered. May need to discontinue it later. Diabetes: On insulin sliding scale. On lisinopril. Allergic to statin. Would not advise any aspirin or other blood thinners at this time preop. Doubt: Allopurinol. Hydrochlorothiazide and lisinopril for hypertension. Hypothyroidism: On Synthroid. Pepcid for gastroesophageal reflux disease. Deep vein thrombosis prophylaxis: Lovenox and SCDs Antiphospholipid syndrome with 1 episode of deep vein thrombosis resulting into embolic str tha: Had been on Coumadin. INR down to 1.5. After consultation with hematology, it is okay t o hold off the Coumadin for a couple of days during an after the surgery. No bridging requir ed. Disposition: Yet to be seen how he does after the surgery. Surgery signed off from the emily e. Code Status: Full Code Vy Rodrigues MD 01/08/2017 onversion Transacti on, Provider Unknown - 01/08/2017 7:13 PM PDTFormatting of this note might be different fro m the original. Progress Notes by Karen Blanchard at 01/08/171912 Author: Karen Blanchard Service: Specialist Author Type: Qa Internship Filed: 01/08/171915 Date of Service: 01/08/171912 Status: Signed Food Service Helper: Karen Blanchard (Qa Internship) Qa Internship visit per spiritual distress epic referral. On arrival Munir is sitting chair just f inishing meal. States he is having neck surgery tomorrow. Munir has a grand daughter Di who is his vocational childcare teacher who he feels well supported by. He has a very large family in [facility] where is lives. Munir has had other surgeries and states is comfortable about this one an d denies any anxiety about it. TIme spent as supportive presence, active listening and in l sergio review. Pt asks for prayer specifically for surgery tomorrow that it goes smoothly and f or all involved in his care. [place] done. Pt appreciative of indoor sports centre manager visit. endez Fraser MD - 01/08/2017 4:48 PM PDT Progress Notes by Mendez Morrison MD at 01/08/171647 Author: Mendez Morrison MD Service: Neurosurgery Author Type: Physician Filed: 01/09/17817 Date of Service: 01/08/171647 Status: Signed Food Service Helper: Mendez Morrison MD (Physician) [facility] Service: Neurosurgery Progress Note Hospital Day: LOS: 1 day SUBJECTIVE Patient Summary: Doing fine. Pain controlled Events Overnight: No acute events overnight Scheduled Medications allopurinol 100 mg Oral Daily bisacodyl 10 mg Rectal Daily cephALEXin 500 mg Oral Q6H famotidine 20 mg Oral BID Or famotidine 20 mg Intravenous BID folic acid 1 mg Oral Daily hydrochlorothiazide 25 mg Oral Daily insulin lispro (human) 0-10 Units Subcutaneous TID AC insulin lispro (human) 0-5 Units Subcutaneous Nightly [START ON 01/09/2017] levothyroxine 50 mcg Oral QAM AC lisinopril 10 mg Oral Daily Continuous Infusions dextrose dextrose 5 % and 0.9 % NaCl Stopped (01/08/17 1247) PRN Medications acetaminophen OR acetaminophen, dextrose, dextrose, dextrose, fentaNYL OR fentaNYL, glucagon, glucagon, ondansetron OR ondansetron, polyethylene glycol, zolpidem OBJECTIVE Vital Signs: BP 153/75 mmHg | Pulse 90 | Temp(Src) 98.8 F (37.1 C) (Oral) | Resp 18 | Ht 1.778 m (5' 10") | Wt 111.6 kg (246 lb 0.5 oz) | BMI 35.30 kg/m2 | SpO2 98% Ox3, GCS 15 craft demonstrator intact In a C collar TTP ML lower neck Strength 5/5 in all muscle group. Pain limited in B hips Reflexes 1+ Plantar downgoing No clonus or Chaney Gait was not tested. No TTP back DATA Recent Labs Lab 01/07/17 0608 01/06/17 2335 WBC 9.71 11.78* RBC 5.07 4.78 HGB 14.6 13.9 HCT 43.1 40.2 MCV 85.0 84.0 MCH 28.8 29.0 MCHC 33.9 34.5 RDW 44.2 44.6 PLT 243 240 MPV 7.7 7.1 DIFFTYPE AUTOMATED AUTOMATED Results Procedure Component Value Units Date/Time POCT glucose [[id number]] (Abnormal) Collected: 01/08/17 1605 GLUCOSE,POC SCREEN 202 (H) mg/dL Updated: 01/08/17 1608 Urine culture [[id number]] Collected: 01/07/17 0752 Specimen Information: Urine from Urine, Catheter Updated: 01/08/17 1539 Specimen Description CATHETERIZED URINE CULTURE NO GROWTH POCT glucose [[id number]] (Abnormal) Collected: 01/08/17 1123 GLUCOSE,POC SCREEN 205 (H) mg/dL Updated: 01/08/17 1129 Protime-INR [[id number]] Collected: 01/08/17 0625 Specimen Information: Blood Updated: 01/08/17 0649 INR 1.5 POCT glucose [[id number]] (Abnormal) Collected: 01/08/17 0526 GLUCOSE,POC SCREEN 158 (H) mg/dL Updated: 01/08/17 0533 POCT glucose [[id number]] (Abnormal) Collected: 01/08/17 0003 GLUCOSE,POC SCREEN 212 (H) mg/dL Updated: 01/08/17 0015 POCT glucose [[id number]] (Abnormal) Collected: 01/07/17 1741 GLUCOSE,POC SCREEN 190 (H) mg/dL Updated: 01/07/17 2135 CK MB [[id number]] Collected: 01/07/17 1144 MMB 2.1 ng/mL Updated: 01/07/17 1220 CK-MB Index 0.7 CPK [[id number]] Collected: 01/07/17 1144 Specimen Information: Blood Updated: 01/07/17 1220 CPK 299 U/L Troponin I [[id number]] Collected: 01/07/17 1144 Specimen Information: Blood Updated: 01/07/17 1220 TROPONIN I <0.020 ng/mL POCT glucose [[id number]] (Abnormal) Collected: 01/07/17 1137 GLUCOSE,POC SCREEN 151 (H) mg/dL Updated: 01/07/17 1140 TSH [[id number]] Collected: 01/07/17 0608 Specimen Information: Blood Updated: 01/07/17 0715 TSH 1.75 uIU/mL Basic Metabolic Panel [[id number]] (Abnormal) Collected: 01/07/17 0608 Specimen Information: Blood Updated: 01/07/17 0715 SODIUM 139 mmol/L POTASSIUM 3.9 mmol/L CHLORIDE 104 mmol/L CO2 24 mmol/L ANION GAP AGAP 15 mmol/L GLUCOSE 178 (H) mg/dL BUN 14 mg/dL CREATININE 1.0 mg/dL BUN/CREAT 14 CALCIUM 9.0 mg/dL EGFR >60 mL/min/1.73m2 Magnesium [[id number]] Collected: 01/07/17 0608 Specimen Information: Blood Updated: 01/07/17 0715 MAGNESIUM 2.2 mg/dL Phosphorus [[id number]] Collected: 01/07/17607 Specimen Information: Blood Updated: 01/07/1715 PHOSPHORUS 3.1 mg/dL Free T4 [[id number]] Collected: 01/07/17607 Specimen Information: Blood Updated: 01/07/1715 FREE T4 1.1 ng/dL CBC W/Auto Diff (Reflex to Manual) [[id number]] Collected: 01/07/17607 Specimen Information: Blood Updated: 01/07/1755 WBC 9.71 K/uL RBC 5.07 M/uL HGB 14.6 g/dL HCT 43.1 % MCV 85.0 fl MCH 28.8 pg MCHC 33.9 g/dL RDW SD 44.2 fl PLT 243 K/uL MPV 7.7 fl DIFF TYPE AUTOMATED NEUTROPHILS 75.64 % LYMPHOCYTES 14.10 % MONOCYTES 7.98 % EOSINOPHILS 1.65 % BASOPHILS 0.63 % NEUTROPHILS ABS 7.34 K/uL LYMPHOCYTES ABS 1.37 K/uL MONOCYTES ABS 0.78 K/uL EOSINOPHILS ABS 0.16 K/uL BASOPHILS ABS 0.06 K/uL Troponin I [[id number]] Collected: 01/07/17607 Specimen Information: Blood Updated: 01/07/1751 TROPONIN I <0.020 ng/mL CK MB [[id number]] Collected: 01/07/1708 MMB 3.1 ng/mL Updated: 01/07/17 0651 CK-MB Index 0.9 CPK [[id number]] Collected: 01/07/17607 Specimen Information: Blood Updated: 01/07/1751 CPK 346 U/L POCT glucose [[id number]] (Abnormal) Collected: 01/07/17 0531 GLUCOSE,POC SCREEN 177 (H) mg/dL Updated: 01/07/17 0535 Cardiac Panel [[id number]] (Abnormal) Collected: 01/06/17 2335 WBC 11.78 (H) K/uL Updated: 01/07/17 0017 RBC 4.78 M/uL HGB 13.9 g/dL HCT 40.2 % MCV 84.0 fl MCH 29.0 pg MCHC 34.5 g/dL RDW SD 44.6 fl PLT 240 K/uL MPV 7.1 fl DIFF TYPE AUTOMATED NEUTROPHILS 75.23 % LYMPHOCYTES 15.77 % MONOCYTES 7.33 % EOSINOPHILS 1.10 % BASOPHILS 0.57 % NEUTROPHILS ABS 8.86 (H) K/uL LYMPHOCYTES ABS 1.86 K/uL MONOCYTES ABS 0.86 (H) K/uL EOSINOPHILS ABS 0.13 K/uL BASOPHILS ABS 0.07 K/uL SODIUM 137 mmol/L POTASSIUM 3.4 (L) mmol/L CHLORIDE 102 mmol/L CO2 25 mmol/L ANION GAP AGAP 14 mmol/L GLUCOSE 182 (H) mg/dL BUN 12 mg/dL CREATININE 1.0 mg/dL BUN/CREAT 12 CALCIUM 8.3 (L) mg/dL TOTAL PROTEIN 6.8 g/dL Albumin 3.0 (L) g/dL GLOBULIN 3.8 g/dL A/G 0.8 (L) TBIL 1.0 mg/dL ALK PHOS 70 U/L AST 32 U/L ALT 45 U/L EGFR >60 mL/min/1.73m2 CPK 357 U/L INR 2.2 APTT 39 (H) seconds MMB 3.6 ng/mL CK-MB Index 1.0 Ethanol Level [[id number]] Collected: 01/06/17 2335 Specimen Information: Blood Updated: 01/07/17 0017 ALCOHOL,ETHYL <10 mg/dL Recent Labs Lab 01/08/17 0625 01/06/17 2335 APTT -- 39* INR 1.5 2.2 X-ray Shoulder Right Complete 2+v 01/07/2017 FINDINGS/ IMPRESSION: 1. No acute fracture or dislocation. 2. 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 3. Osteopenia. Electronicall y signed by Cierra López on 01/07/2017 1:49 PM X-ray Knee Limited Left 01/07/2017 No acute fracture or dislocation. No bone, joint or soft tissue abnormality. Kristy ctronically signed by Omkar Lopes MD on 01/07/2017 6:58 AM X-ray Knee Limited Right 01/07/2017 No acute fracture or dislocation. No bone, joint or soft tissue abnormality. Kristy ctronically signed by Omkar Lopes MD on 01/07/2017 6:57 AM Cta Neck With Iv Contrast 01/07/2017 1. No evidence of significant hemodynamic stenosis, aneurysm, or dissection inv olving the carotid arteries in the neck. 2. Depressed fracture of the anterior wall of the left maxillary sinus with overlying soft tissue swelling and emphysema. Electronically malachi d by Raf Donnelly on 01/07/2017 11:05 AM Mri C-spine Without Contrast 01/07/2017 Left thyroid mass measures up to 3.8 cm. Consider correlation with thyroid ultra sound. Changes of ankylosing spondylitis throughout the cervical and upper thoracic spine. T here is a small amount of prevertebral soft tissue edema. 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 T2 signal prolongation within the disk s pace at C6-C7. Findings represent nondisplaced fracture through the ankylosed spine at this level. RADIA Electronically signed by Artemio Riddle MD on Jan 07 2017 1:18AM Referring Prov ider Line: [phone] ID: [id number] Ct Facial Bones 01/07/2017 1. Acute displaced fracture of the anterolateral wall of the left maxillary sinu s (series 4 image 30, series 3 image 70). The fracture fragment is displaced superomedially and posteriorly into the left maxillary sinus. 2. Given the left maxillary sinus wall fractu re, there is now resulting soft tissue emphysema within the left submandibular space, left m asticator space, and left periorbital soft tissues. 3. 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 No evidence of acute fracture or malalignment involving the spine. However, given the ankylosed spine MRI of the spine is recommended, as clinically indicated, to further evalua te. RADIA Electronically signed by Divya Prieto MD on Jan 07 2017 1:30AM Referring Pro vider Line: [phone] ID: [id number] Echo Cardiac Adult Limited 01/07/2017 1. The left ventricle is normal in size, mild concentric hypertrophy and hyperdy namic systolic function EF >70%. 2. The right ventricle is moderately enlarged with normal s ystolic function. 3. The aortic valve is mildly calcified with mild aortic regurgitation. 4. There is no pericardial effusion. Ct Thoracic Lumbar Without Contrast 01/07/2017 1. Diffuse ankylosis of the spine. No evidence of acute fracture or traumatic s ubluxation. If there is continued concern for acute fracture or ligamentous injury, consider further evaluation with MRI. 2. Minimal compression of the superior endplate of L1 which i s age indeterminate. LEM LIST Principal Problem: Closed nondisplaced fracture of seventh cervical vertebra (HCC) Active Problems: Maxillary fracture, left side, initial encounter for open fracture Antiphospholipid syndrome (HCC) Controlled type 2 diabetes mellitus with hyperglycemia (HCC) Syncope and collapse Thyroid mass ASSESSMENT & PLAN C6-7 chance and left lateral mass fracture with ankylosing spondylitis Cleared for surgery INR trending down Discussed with patient regarding options- Healing in situ in a collar vs surgical fusion. P atient wants to have surgical fusion. Explained the risks of the procedure- bleeding, infection, wound problems, need for reopera tion, need for further therapy. Motor, sensory, bowel , bladder, sexual dysfunction, CSF deb k, nerve root injury, vascular injury, misplaced hardware, progressing of kyphosis requiring delayed revision. The benefits would be quicker stabilization and avoiding neurological injury After explaining the risks and the benefits the patient consented for the procedure C3-T2 p osterior instrumented fusion. Disposition: Unknown Code Status: Full Code Mendez Morrison MD 01/08/2017 4:48 PM onversio n Transaction, Provider Unknown - 01/08/2017 2:25 PM PDTFormatting of this note might be di fferent from the original. Case Management by Neena Suarez RN at 01/08/17 1420 Author: Neena Suarez RN Service: (none) Author Type: Registered Nurse Filed: 01/08/17 1428 Date of Service: 01/08/171424 Status: Signed Food Service Helper: Neena Suarez RN (Registered Nurse) F/U with pt. Pending surgery tomorrow. Pt deferred placement at a SNF at this time. Av vega feels he will be able to go home with assist. He states, he has an extensive family in [facility] and family he can stay with during his rehabilitation time. onver jacki Transaction, Provider Unknown - 01/08/2017 1:57 PM PDT Therapy Progress Note by Marielos Cee MA CCC-OXYGEN FURNACE OPERATOR at 01/08/17 3345 Author: Marielos Cee MA CCC-OXYGEN FURNACE OPERATOR Service: (none) Author Type: Speech and Language Patholo gist Filed: 01/08/17 5273 Date of Service: 01/08/178 Status: Addendum Food Service Helper: Marielos Cee MA CCC-OXYGEN FURNACE OPERATOR (Speech and Language Pathologist) Related Notes: Original Note by Marielos Cee MA CCC-OXYGEN FURNACE OPERATOR (Speech and Language Pathologist) filed at 01/08/17 3042 01/08/17 1351 OXYGEN FURNACE OPERATOR Last Visit OXYGEN FURNACE OPERATOR Received On 01/08/17 Requires OXYGEN FURNACE OPERATOR Follow Up Yes Swallowing Assessment Eval Swallowing Evaluation Yes Initial Swallow Assessment Respiratory Status Room air Behavior/Cognition Alert;Cooperative Dentition Dentures upper Vision Functional for self-feeding Patient Positioning Upright in chair Baseline Vocal Quality Normal Oral Motor Exam Labial Symmetry WFL Facial Symmetry WFL Vocal Quality WFL Thin Presentation Cup;Self Fed Oral Phase Thin WFL Pharyngeal Phase No overt signs or symptoms of aspiration Regular Presentation Self Fed Oral Phase WFL Pharyngeal Phase No overt signs or symptoms of aspiration Recommendations Liquids Consistency Recommendations Thin Diet Consistency Recommendation Regular Recommendations Dysphagia treatment;Other (Comment) (Plan to reassess swallow after spinal fusion surgery.) Risk for Aspiration Mild Compensatory Swallowing Strategies Upright as possible for all oral intake;Small bites/sips Recommended Form of Meds Meds with recommended liquid Summary Pt tolerated trials of thin liquid and regular texture consistencies with no overt s/sx of aspiration. Recommend thin liquids and regular consistency diet at this time. ST to follow for diet consistency tolerance and reassesss swallow function following spinal fusion surgery. Pt was educated on posible dysphagia following spinal surgery and rationale for ST services. Staff Notified MD;RN Plan of Care Treatment Plan ST to follow;Dysphagia treatment (ST follow to monitor diet tolerance after spinal fusion surg) Treatment Frequency 4-6 x/week Care Duration (Days) 7 Days Follow up treatments Diet tolerance monitoring;Patient/Family education Dysphagia Goals Penitentiary Goals Safe/efficient oral intake Pt will have safe/efficient oral intake Thin liquids;Dysphagia advanced diet;With min cues ;New/revised goal Short Term Goals Follow swallow precautions Pt will follow swallow precautions With min supervision;New/revised goal Speech Therapy Student educationally participated in the delivery of care under the direct supervision of the licensed therapist. The patient was in agreement with the student's role in care. *addendum to add student note onver jacki Transaction, Provider Unknown - 01/08/2017 10:17 AM PDT Therapy Progress Note by Beata Brito PT at 01/08/17 1017 Author: Beata Brito PT Service: (none) Author Type: Physical Therapist Filed: 01/08/17 1017 Date of Service: 01/08/17 1017 Status: Signed Food Service Helper: Beata Brito PT (Physical Therapist) 01/08/17 0911 PT Last Visit PT Received On 01/08/17 Reason for Treatment Other (comment);Spinal surgery (C7 fx, pending cervical fusion) Requires PT Follow Up Awaiting tx order Follow up PT Only? Yes (until reassess) Focus for Next Treatment Formal Balance Assessment PT Eval/Reassessment Date 01/08/17 Assistance Required 1 person Training Development Director Needed No Precautions Spinal Precautions Cervical collar on when upright Other Precautions fall pxs, pending C1-7 fusion Other Comments Comments 66 y/o male admitted for amnesic fall w/C7 and L maxillary fx. Pt lives alone and has all equipment needed, as he was grossly nonambulatory up til several years ago, and has been ambulatory with 2 canes since bilat hip surgeries. PMH: ankylosing spondylitis, DM2, HT N, TIA, obesity, chronic R shoulder pain. Pt sleeps in a recliner. Pt is awaiting cervical f usion, d/t the rest of his spine is fused. C7 fx is stable and PA states pt is safe to amb a nd mobilize with c-collar on. Currently, pt requires assist and training for bed mobility (a lthough sleeps in lift recliner) and following precautions with c-collar. Pt should progress well, but will need cont training and reassess after surgery completed. Cognition Overall Cognitive Status WFL Orientation Level Oriented Bed Mobility Rolling Moderate assist;Verbal instruction Sidelying to Sit Mod assist (BLEs OOB or trunk to upright);Verbal instruction Transfers Sit to/from Stand Minimal assist (steadying/contact guard) Bed to/from Chair Minimal assist (steadying/contact guard);Verbal instruction Mobility Ambulation Assistance Minimal assist;Verbal instruction Maximal Ambulation Distance (feet) 75 Total Ambulation Distance (feet) 75 Distance limited by? Therapist/staff discretion Pattern Alternating;Decreased khalif;Wide base Assistive Device Walker front wheeled Balance Balance Yes Standardized Test Activity Measure for Post-Acute Care (raw score) 16 Supine Supine-Exercise Type Heel slides Supine-Exercise Comments x10 bilat Modalities Modalities Other therapy Other Therapy ed pt about cervical precautions and c-collar, ed about POC Activity Tolerance Activity Tolerance Patient tolerated treatment without report of fatigue Nurse Made Aware RN Neha notified Safety Devices Safety Devices in Place (pt left in recliner w/call light in reach) Plan Treatment/Interventions Bed mobility training;Balance training;Gait training;Review precaut ions;Therapeutic exercise;Transfer training PT Frequency Once per day;5-7x/wk (until surgery, then reassess needs) Care Duration (# of days) 5 # of days Recommendation Recommendations Defer Equipment Recommended None Recommendation Comments Pt has all needed equipment. Will defer recommendation for d/c unti l after surgery. Pt, however, will likely be able to d/c home w/assist. onver jacki Hines Provider Unknown - 01/08/2017 10:15 AM PDT Therapy Progress Note by Beata Brito PT at 01/08/17 1015 Author: Beata Brito PT Service: (none) Author Type: Physical Therapist Filed: 01/08/17 1016 Date of Service: 01/08/17 1015 Status: Signed Food Service Helper: Beata Brito PT (Physical Therapist) 01/08/17 0911 PT Last Visit PT Received On 01/08/17 Reason for Treatment Other (comment);Spinal surgery (C7 fx, pending cervical fusion) Requires PT Follow Up Awaiting tx order Follow up PT Only? Yes (until reassess) Focus for Next Treatment Formal Balance Assessment PT Eval/Reassessment Date 01/08/17 Assistance Required 1 person Training Development Director Needed No Home Environment Type of Home Home one story Home Exterior Layout Ramp Home Interior Layout Lives on main level with bedroom/bathroom Bathroom Shower/Tub Shower unit with threshold Bathroom Toilet Standard Bathroom Equipment Grab bars in shower/bath;Grab bars outside of shower/bath;Built-in showe r seat;Hand-held shower head;Grab bars at toilet;Raised toilet seat Bathroom Accessibility Accessible via walker Home Equipment Bed hospital;Cane single point;Transfer pole;Walker front wheeled;Walker 4 wheeled;Wheelchair-manual;Scooter-electric;Chair lift Additional Comments sleeps in lift recliner Prior Function Level of [place] Modified independent with functional mobility;Modified independent wi th ADLs;Assist with IADLs;Driving in community Falls in Past Year Yes (1 fall that led to this admission and C7 fx) Lives With Alone (family lives in the 2nd part of [facility]) Receives Help From Family Employment Retired for disability Comments Pt has multiple family members that live next door and has the availability of 24- hr assist prn. RUE Assessment RUE Assessment WFL (although pt states it feels weak) LUE Assessment LUE Assessment WFL RLE Assessment RLE Assessment WFL LLE Assessment LLE Assessment WFL Cognition Overall Cognitive Status WFL Orientation Level Oriented Sensation Light Touch Deficit apparent (bilat soles of feet) Perception Inattention/Neglect Appears intact Proprioception Proprioception No apparent deficit Vision-Basic Assessment Current Vision No visual deficits Assessment of Patient Status Assessment of Patient Status Decreased functional mobility;Pain;Precautions Prognosis Should progress with skilled therapy intervention Safety Devices Safety Devices in Place (pt left in recliner w/call light in reach) Precautions Spinal Precautions Cervical collar on when upright Other Precautions fall pxs, pending C1-7 fusion Plan Treatment/Interventions Bed mobility training;Balance training;Gait training;Review precaut ions;Therapeutic exercise;Transfer training PT Frequency Once per day;5-7x/wk (until surgery, then reassess needs) Care Duration (# of days) 5 # of days Recommendation Recommendations Defer Equipment Recommended None Recommendation Comments Pt has all needed equipment. Will defer recommendation for d/c unti l after surgery. Pt, however, will likely be able to d/c home w/assist. Low - 22267 Moderate - 82245 High - 18194 History 1-2 personal factors &/or comorbidities Examination 3 elements Clinical Presentation evolving Clinical Decision Making Complexity: Low 09651 Moderate 22214 High 83509 Activity Measure for Post Acute Care (AM-PAC) Inpatient Basic Mobility Short Form 6 Clicks How much difficulty does the patient currently have 1. Turning over in bed (including adjusting bedclothes, sheets, and blankets)? 1. Unable = total/dependent assist 2. A lot = max/mod assist 3. A Little = min/contact guard assist or supervision 4. None = modified independence or independence 2. Sitting down on and standing up from a chair with arms (e.g., wheelchair, bedside commod e, etc.)? 1. Unable = total/dependent assist 2. A lot = max/mod assist 3. A Little = min/contact guard assist or supervision 4. None = modified independence or independence 3. Moving from lying on back to sitting on the side of the bed? 1. Unable = total/dependent assist 2. A lot = max/mod assist 3. A Little = min/contact guard assist or supervision 4. None = modified independence or independence How much help from another person does the patient currently need 4. Moving to and from a bed to a chair (including a wheelchair)? 1. Total = total/dependent assist 2. A lot = max/mod assist 3. A Little = min/contact guard assist or supervision 4. None = modified independence or independence 5. Need to walk in their hospital room? 1. Total = total/dependent assist 2. A lot = max/mod assist 3. A Little = min/contact guard assist or supervision 4. None = modified independence or independence 6. Climbing 3-5 steps with a railing? 1. Total = total/dependent assist 2. A lot = max/mod assist 3. A Little = min/contact guard assist or supervision 4. None = modified independence or independence Raw Score: 16 Barbie & Ximena (2012) suggest raw score predicts discharge during acute hospitalization: Home = 20.1 Home with home care = 17.9 [facility] facility = 14 Inpatient rehabilitation facility = 13.6 Long-term acute care = 11.5 [facility] AM-PAC 6 Clicks Basic Mobility Inpatient Short Form Score Conver jacki Table AM-PAC Raw Score AM-PAC t-scale score Scale Score Standard Error [facility] 0-100% score 6 23.55 4.57 100.00% 7 26.42 4.33 92.36% 8 28.58 4.04 86.62% 9 30.55 3.69 81.38% 10 32.29 3.42 76.75% 11 33.86 3.22 72.57% 12 35.33 3.08 68.66% 13 36.74 2.99 64.91% 14 38.10 2.95 61.29% 15 39.45 2.93 57.70% 16 40.78 2.95 54.16% 17 42.13 3.03 50.57% 18 43.63 3.20 46.58% 19 45.44 3.55 41.77% 20 47.67 4.06 35.83% 21 50.25 4.69 28.97% 22 53.28 5.43 20.91% 23 56.93 6.22 11.20% 24 61.14 6.94 0.00% Yamilet Hawley OTR/Ayesha - 01/08/2017 9:59 AM PDTFormatting of this note might be different from t lynda original. Therapy Progress Note by HOLLY Camarena/Ayesha at 01/08/17 0959 Author: HOLLY Camarena/Ayesha Service: (none) Author Type: Occupational Therapist Filed: 01/08/17 1002 Date of Service: 01/08/17958 Status: Signed Food Service Helper: JOZEF Camarena (Occupational Therapist) 01/08/17 0959 OT Last Visit OT Received On 01/08/17 Requires OT Follow Up On hold Other Comments Comments Per RN pt recently up with PT and moved to seated in chair. RN reporting pt may pérez ve surgery tomorrow. Plan to hold for the day per RN and follow up as census permits 01/09. Jorge Chicas MD - 01/08/2017 9:29 AM PDTFormatting of this note might be different from the orig inal. Progress Notes by Jorge Quiles MD at 01/08/17928 Author: Jorge Quiles MD Service: General Surgery Author Type: Physician Filed: 01/08/17 1509 Date of Service: 01/08/17928 Status: Addendum Food Service Helper: Jorge Quiles MD (Physician) Related Notes: Original Note by Karen Khoury PA-C (Physician Director Loss Prevention - Certif ied) filed at 01/08/17 0977 Progress Note Hospital Day: LOS: 1 day Post-Op Day: * No surgery found * Subjective Events Overnight: Nothing acute. No new pain. No complaints or concerns. INR 1.5 today. 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 Morrison - patient to remain in C collar at all times and he plans on taking patient to OR at earliest availability for spinal fusion now that INR has normali zed. At this time, general surgery will sign off as there is no signs, symptoms or evidence of a bdominal trauma or injury. Thank you for this consult Scheduled Medications bisacodyl 10 mg Rectal Daily cephALEXin 500 mg Oral Q6H famotidine 20 mg Oral BID Or famotidine 20 mg Intravenous BID insulin lispro (human) 0-6 Units Subcutaneous 4 times per day levothyroxine 26 mcg Intravenous Daily Continuous Infusions dextrose dextrose 5 % and 0.9 % NaCl 110 mL/hr at 01/07/17 1757 PRN Medications acetaminophen OR acetaminophen, dextrose, dextrose, dextrose, fentaNYL OR fentaNYL, glucagon, glucagon, ondansetron OR ondansetron, polyethylene glycol, zolpidem Objective Vital Signs: BP 143/75 mmHg | Pulse 78 | Temp(Src) 97.7 F (36.5 C) (Axillary) | Resp 18 | Ht 1.778 m (5' 10") | Wt 111.6 kg (246 lb 0.5 oz) | BMI 35.30 kg/m2 | SpO2 98% Results for orders placed or performed during the hospital encounter of 01/06/17 (from the past 24 hour(s)) POCT glucose Collection Time: 01/07/17 11:37 AM Result Value Ref Range GLUCOSE,POC SCREEN 151 (H) 65 - 99 mg/dL Troponin I Collection Time: 01/07/17 11:44 AM Result Value Ref Range TROPONIN I <0.020 0.00 - 0.10 ng/mL CK MB Collection Time: 01/07/17 11:44 AM Result Value Ref Range MMB 2.1 0.5 - 3.6 ng/mL CK-MB Index 0.7 CPK Collection Time: 01/07/17 11:44 AM Result Value Ref Range CPK 299 55 - 400 U/L POCT glucose Collection Time: 01/07/17 5:41 PM Result Value Ref Range GLUCOSE,POC SCREEN 190 (H) 65 - 99 mg/dL POCT glucose Collection Time: 01/08/17 12:03 AM Result Value Ref Range GLUCOSE,POC SCREEN 212 (H) 65 - 99 mg/dL POCT glucose Collection Time: 01/08/17 5:26 AM Result Value Ref Range GLUCOSE,POC SCREEN 158 (H) 65 - 99 mg/dL Protime-INR Collection Time: 01/08/17 6:25 AM Result Value Ref Range INR 1.5 Intake/Output Summary (Last 24 hours) at 01/08/17 0929 Last data filed at 01/08/17 0300 Gross per 24 hour Intake 1350 ml Output 1225 ml Net 125 ml Physical Exam Constitutional: No distress C collar in place Cardiovascular: Normal rate. Pulmonary: Effort normal. No stridor. No respiratory distress. Abdominal: Soft. Superficial muscular tenderness to RLQ, no pain to deep palpation, no gu arding, no rebound, no distension. RUQ incisional hernia present. Well healed RUQ and midlin e incision Neurological: Alert and oriented to person, place, and time. Psychiatric: He has a normal mood and affect His behavior is normal. Thought content farrukh l. Nursing note and vitals reviewed. Problem List Principal Problem: Closed nondisplaced fracture of seventh cervical vertebra (HCC) Active Problems: Maxillary fracture, left side, initial encounter for open fracture Antiphospholipid syndrome (HCC) Controlled type 2 diabetes mellitus with hyperglycemia (HCC) Syncope and collapse Thyroid mass Signed: Karen Khoury PA-C Acute Care General Surgery Portions of this chart may have been created with voice recognition software. Occasional wr marie-word or "sound-alike" substitutions may have occurred, even after review, due to the inh erent limitations of voice recognition software. Please read the chart carefully and recogni ze, using context, where these substitutions have occurred. Personal communication is reques radha for any clarifications. Patient seen and examined independently, chart reviewed. I concur with the above findings and have discussed them with the patient . I have made changes to the above note, where appropriate, and discussed the content and mahi nges with the author. Jorge Quiles MD [facility] General Surgery onversion Tr ansaction, Provider Unknown - 01/08/2017 6:03 AM PDTFormatting of this note might be differ ent from the original. Nurse Progress Note by Luz Chen RN at 01/08/17602 Author: Luz Chen RN Service: (none) Author Type: Registered Nurse Filed: 01/08/17602 Date of Service: 01/08/17602 Status: Signed Food Service Helper: Luz Chen RN (Registered Nurse) 24 hour chart check complete. Luz Chen RN 01/08/2017 6:03 AM onver jacki Transaction, Provider Unknown - 01/07/2017 4:09 PM PDT Case Management by Neena Suarez RN at 01/07/17 1606 Author: Neena Suarez RN Service: (none) Author Type: Registered Nurse Filed: 01/08/17 1429 Date of Service: 01/07/17 1605 Status: Addendum Food Service Helper: Neena Suarez RN (Registered Nurse) Related Notes: Original Note by Neena Suarez RN (Registered Nurse) filed at 01/07/17 1 618 01/07/17 1600 Discharge Planning Evaluation Admitting Diagnosis Fracture of 7th vertebra Readmission No Living Arrangements Alone Support Systems Friends/neighbors;Family members Type of Residence Private residence ([facility]) House type House-1 story Steps to enter 1 Independent with ADL's Yes Independent with Mobility Yes Home Care Services No Caregiver after Discharge No Mental Status Oriented Prior functional status independant (cane, mari lift, 4 wheel walker-as needed) Anticipated Discharge Plan Post Acute Care Needs None at this time Plan communicated to patient/family No Resources Financial concerns No Transportation issues No Prescription Plan Yes Previous home health equipment Yes Anticipated Disposition Facility Type Home Met with patient and discussed role of CM in discharge planning, Pt is a 66 y.o., male who fell in [place] but doesnot recall how he fell. [facility] [place] situation. Neighbor next door is close friend. Has several family and friends in the area. Admitted for nondisplaced fracture of C7. Transport from [facility]. Patient's PCP is: Scooby Mcclure Patient's insurance: Medicare/Medicaid Coverage concerns: none at this time Medication coverage/concerns: none at this time Rx Bedside Delivery: TBD Community resources utilized / needed: TBD Assistance in transportation: none at this time Identification of any specific education / training: TBD Barriers to Discharge / Alternative housing needed: none at this time Anticipated DCP: Pt to discharge home with family when medically stable. Pt has chair lift , 4 wheel walker, and cane for assistance when needed. Has a home FIRER GLO[employer]ILN aide who assist with ADL's. Warfarin monitoring is done at his PCP medical clinic on the [facility]. Deepthi Suarez onver jacki Transaction, Provider Unknown - 01/07/2017 9:43 AM PDT Case Management by JAMIE Grimaldo at 01/07/17 0943 Author: JAMIE Grimaldo Service: (none) Author Type: Fpga Engineer Filed: 01/07/1752 Date of Service: 01/07/17942 Status: Signed Food Service Helper: JAMIE Grimaldo (Fpga Engineer) 01/07/17 0900 Discharge Planning Evaluation Admitting Diagnosis Syncopal Episode, c7 fracture FLOOR PRESS OPERATOR received p/c from Cheyanne Root, [facility] Health Nurse with [facility] Michel vázquez ([phone] ph, fax) regarding her ability to provide support and community nursing. FLOOR PRESS OPERATOR faxed clinicals. This will help due to low staffing with [facility]. DCP: Pending clinical course CAMRYN FUNK Garment Worker [phone] cell onver jacki Khanaction, Provider Unknown - 01/07/2017 5:03 AM PDT Progress Notes by Jeffrey De Paz RPH at 01/07/17502 Author: Jeffrey De Paz RPH Service: (none) Author Type: Pharmacist Filed: 01/07/17502 Date of Service: 01/07/17502 Status: Signed Food Service Helper: Jeffrey De Paz RPH (Pharmacist) Note ccl 91.7ml/min meds reviewed Pharmacy will follow [facility] 0503 docume nted in this encounter Plan of Treatment +--------+---------+ + + + | Date | Type | Specialty | Care Team | Description | +--------+---------+ + + + | 09/14/ | Office | Neurology | Sarahi Jade, | | | 2019 | Visit | | MD Sushil ALETHALAmparo | | | | | | [address] | | | | | | [address] [address] | | | | | | [phone] | | | | | | | | +--------+---------+ + + + | 11/26/ | Office | Cardiology | Sissy Noyola | | 2019 | Visit | | MD Marisol [address] | | | | | | [place] | | | | | | [phone] | | | | | | | | +--------+---------+ + + + documented as of this encounter Procedures + +--------+ + + + | Procedure Name | Priori | Date/Time | Associated Diagnosis | Comments | | | ty | | | | + +--------+ + + + | POC GLUCOSE | Routin | 01/22/2017 | | Results for this | | | e | 11:45 AM | | procedure are in the | | | | PDT | | results section. | + +--------+ + + + | POC GLUCOSE | Routin | 01/22/2017 | | Results for this | | | e | 5:31 AM | | procedure are in the | | | | PDT | | results section. | + +--------+ + + + | PROTIME INR | Routin | 01/22/2017 | | Results for this | | | e | 5:06 AM | | procedure are in the | | | | PDT | | results section. | + +--------+ + + + | PHOSPHORUS | Routin | 01/22/2017 | | Results for this | | | e | 5:06 AM | | procedure are in the | | | | PDT | | results section. | + +--------+ + + + | POC GLUCOSE | Routin | 01/21/2017 | | Results for this | | | e | 9:31 PM | | procedure are in the | | | | PDT | | results section. | + +--------+ + + + | POC GLUCOSE | Routin | 01/21/2017 | | Results for this | | | e | 4:31 PM | | procedure are in the | | | | PDT | | results section. | + +--------+ + + + | PHOSPHORUS | Routin | 01/21/2017 | | Results for this | | | e | 1:51 PM | | procedure are in the | | | | PDT | | results section. | + +--------+ + + + | POC GLUCOSE | Routin | 01/21/2017 | | Results for this | | | e | 11:24 AM | | procedure are in the | | | | PDT | | results section. | + +--------+ + + + | EXTERNAL LAB: CBC | Routin | 01/21/2017 | | Results for this | | | e | 5:36 AM | | procedure are in the | | | | PDT | | results section. | + +--------+ + + + | PROTIME INR | Routin | 01/21/2017 | | Results for this | | | e | 5:36 AM | | procedure are in the | | | | PDT | | results section. | + +--------+ + + + | PHOSPHORUS | Routin | 01/21/2017 | | Results for this | | | e | 5:36 AM | | procedure are in the | | | | PDT | | results section. | + +--------+ + + + | MAGNESIUM | Routin | 01/21/2017 | | Results for this | | | e | 5:36 AM | | procedure are in the | | | | PDT | | results section. | + +--------+ + + + | BASIC METABOLIC | Routin | 01/21/2017 | | Results for this | | PANEL | e | 5:36 AM | | procedure are in the | | | | PDT | | results section. | + +--------+ + + + | POC GLUCOSE | Routin | 01/21/2017 | | Results for this | | | e | 5:25 AM | | procedure are in the | | | | PDT | | results section. | + +--------+ + + + | POC GLUCOSE | Routin | 01/20/2017 | | Results for this | | | e | 9:47 PM | | procedure are in the | | | | PDT | | results section. | + +--------+ + + + | POC GLUCOSE | Routin | 01/20/2017 | | Results for this | | | e | 4:44 PM | | procedure are in the | | | | PDT | | results section. | + +--------+ + + + | POC GLUCOSE | Routin | 01/20/2017 | | Results for this | | | e | 12:04 PM | | procedure are in the | | | | PDT | | results section. | + +--------+ + + + | POC GLUCOSE | Routin | 01/20/2017 | | Results for this | | | e | 10:20 AM | | procedure are in the | | | | PDT | | results section. | + +--------+ + + + | POC GLUCOSE | Routin | 01/20/2017 | | Results for this | | | e | 5:55 AM | | procedure are in the | | | | PDT | | results section. | + +--------+ + + + | EXTERNAL LAB: CBC | Routin | 01/20/2017 | | Results for this | | | e | 4:09 AM | | procedure are in the | | | | PDT | | results section. | + +--------+ + + + | PROTIME INR | Routin | 01/20/2017 | | Results for this | | | e | 4:09 AM | | procedure are in the | | | | PDT | | results section. | + +--------+ + + + | PHOSPHORUS | Routin | 01/20/2017 | | Results for this | | | e | 4:09 AM | | procedure are in the | | | | PDT | | results section. | + +--------+ + + + | MAGNESIUM | Routin | 01/20/2017 | | Results for this | | | e | 4:09 AM | | procedure are in the | | | | PDT | | results section. | + +--------+ + + + | BASIC METABOLIC | Routin | 01/20/2017 | | Results for this | | PANEL | e | 4:09 AM | | procedure are in the | | | | PDT | | results section. | + +--------+ + + + | POC GLUCOSE | Routin | 01/19/2017 | | Results for this | | | e | 11:51 PM | | procedure are in the | | | | PDT | | results section. | + +--------+ + + + | POC GLUCOSE | Routin | 01/19/2017 | | Results for this | | | e | 9:36 PM | | procedure are in the | | | | PDT | | results section. | + +--------+ + + + | POC GLUCOSE | Routin | 01/19/2017 | | Results for this | | | e | 7:05 PM | | procedure are in the | | | | PDT | | results section. | + +--------+ + + + | POC GLUCOSE | Routin | 01/19/2017 | | Results for this | | | e | 5:46 PM | | procedure are in the | | | | PDT | | results section. | + +--------+ + + + | POTASSIUM | Routin | 01/19/2017 | | Results for this | | | e | 2:22 PM | | procedure are in the | | | | PDT | | results section. | + +--------+ + + + | PHOSPHORUS | Routin | 01/19/2017 | | Results for this | | | e | 2:22 PM | | procedure are in the | | | | PDT | | results section. | + +--------+ + + + | MAGNESIUM | Routin | 01/19/2017 | | Results for this | | | e | 2:22 PM | | procedure are in the | | | | PDT | | results section. | + +--------+ + + + | POC GLUCOSE | Routin | 01/19/2017 | | Results for this | | | e | 12:05 PM | | procedure are in the | | | | PDT | | results section. | + +--------+ + + + | POC GLUCOSE | Routin | 01/19/2017 | | Results for this | | | e | 6:05 AM | | procedure are in the | | | | PDT | | results section. | + +--------+ + + + | EXTERNAL LAB: CBC | Routin | 01/19/2017 | | Results for this | | | e | 3:55 AM | | procedure are in the | | | | PDT | | results section. | + +--------+ + + + | PROTIME INR | Routin | 01/19/2017 | | Results for this | | | e | 3:55 AM | | procedure are in the | | | | PDT | | results section. | + +--------+ + + + | PHOSPHORUS | Routin | 01/19/2017 | | Results for this | | | e | 3:55 AM | | procedure are in the | | | | PDT | | results section. | + +--------+ + + + | MAGNESIUM | Routin | 01/19/2017 | | Results for this | | | e | 3:55 AM | | procedure are in the | | | | PDT | | results section. | + +--------+ + + + | BASIC METABOLIC | Routin | 01/19/2017 | | Results for this | | PANEL | e | 3:55 AM | | procedure are in the | | | | PDT | | results section. | + +--------+ + + + | POC GLUCOSE | Routin | 01/18/2017 | | Results for this | | | e | 9:35 PM | | procedure are in the | | | | PDT | | results section. | + +--------+ + + + | POTASSIUM | Routin | 01/18/2017 | | Results for this | | | e | 5:07 PM | | procedure are in the | | | | PDT | | results section. | + +--------+ + + + | PHOSPHORUS | Routin | 01/18/2017 | | Results for this | | | e | 5:07 PM | | procedure are in the | | | | PDT | | results section. | + +--------+ + + + | MAGNESIUM | Routin | 01/18/2017 | | Results for this | | | e | 5:07 PM | | procedure are in the | | | | PDT | | results section. | + +--------+ + + + | POC GLUCOSE | Routin | 01/18/2017 | | Results for this | | | e | 5:04 PM | | procedure are in the | | | | PDT | | results section. | + +--------+ + + + | POC GLUCOSE | Routin | 01/18/2017 | | Results for this | | | e | 9:27 AM | | procedure are in the | | | | PDT | | results section. | + +--------+ + + + | PROCALCITONIN, SERUM | Routin | 01/18/2017 | | Results for this | | | e | 9:22 AM | | procedure are in the | | | | PDT | | results section. | + +--------+ + + + | LACTIC ACID | Routin | 01/18/2017 | | Results for this | | | e | 9:22 AM | | procedure are in the | | | | PDT | | results section. | + +--------+ + + + | POC GLUCOSE | Routin | 01/18/2017 | | Results for this | | | e | 6:19 AM | | procedure are in the | | | | PDT | | results section. | + +--------+ + + + | XR ABDOMEN AP | Routin | 01/18/2017 | | Results for this | | | e | 6:06 AM | | procedure are in the | | | | PDT | | results section. | + +--------+ + + + | EXTERNAL LAB: CBC | Routin | 01/18/2017 | | Results for this | | | e | 4:25 AM | | procedure are in the | | | | PDT | | results section. | + +--------+ + + + | TSH WITH REFLEX | Routin | 01/18/2017 | | Results for this | | | e | 4:25 AM | | procedure are in the | | | | PDT | | results section. | + +--------+ + + + | PROTIME INR | Routin | 01/18/2017 | | Results for this | | | e | 4:25 AM | | procedure are in the | | | | PDT | | results section. | + +--------+ + + + | PHOSPHORUS | Routin | 01/18/2017 | | Results for this | | | e | 4:25 AM | | procedure are in the | | | | PDT | | results section. | + +--------+ + + + | MAGNESIUM | Routin | 01/18/2017 | | Results for this | | | e | 4:25 AM | | procedure are in the | | | | PDT | | results section. | + +--------+ + + + | BASIC METABOLIC | Routin | 01/18/2017 | | Results for this | | PANEL | e | 4:25 AM | | procedure are in the | | | | PDT | | results section. | + +--------+ + + + | POC GLUCOSE | Routin | 01/17/2017 | | Results for this | | | e | 10:05 PM | | procedure are in the | | | | PDT | | results section. | + +--------+ + + + | POC GLUCOSE | Routin | 01/17/2017 | | Results for this | | | e | 4:26 PM | | procedure are in the | | | | PDT | | results section. | + +--------+ + + + | POC GLUCOSE | Routin | 01/17/2017 | | Results for this | | | e | 11:32 AM | | procedure are in the | | | | PDT | | results section. | + +--------+ + + + | CT ABDOMEN PELVIS WO | Routin | 01/17/2017 | | Results for this | | CONTRAST | e | 10:49 AM | | procedure are in the | | | | PDT | | results section. | + +--------+ + + + | POC GLUCOSE | Routin | 01/17/2017 | | Results for this | | | e | 8:24 AM | | procedure are in the | | | | PDT | | results section. | + +--------+ + + + | XR ABDOMEN AP | Routin | 01/17/2017 | | Results for this | | | e | 6:00 AM | | procedure are in the | | | | PDT | | results section. | + +--------+ + + + | LACTIC ACID | Routin | 01/17/2017 | | Results for this | | | e | 3:29 AM | | procedure are in the | | | | PDT | | results section. | + +--------+ + + + | EXTERNAL LAB: CBC | Routin | 01/17/2017 | | Results for this | | | e | 3:28 AM | | procedure are in the | | | | PDT | | results section. | + +--------+ + + + | PROTIME INR | Routin | 01/17/2017 | | Results for this | | | e | 3:28 AM | | procedure are in the | | | | PDT | | results section. | + +--------+ + + + | PHOSPHORUS | Routin | 01/17/2017 | | Results for this | | | e | 3:28 AM | | procedure are in the | | | | PDT | | results section. | + +--------+ + + + | MAGNESIUM | Routin | 01/17/2017 | | Results for this | | | e | 3:28 AM | | procedure are in the | | | | PDT | | results section. | + +--------+ + + + | BASIC METABOLIC | Routin | 01/17/2017 | | Results for this | | PANEL | e | 3:28 AM | | procedure are in the | | | | PDT | | results section. | + +--------+ + + + | XR ABDOMEN AP | Routin | 01/17/2017 | | Results for this | | | e | 2:41 AM | | procedure are in the | | | | PDT | | results section. | + +--------+ + + + | POC GLUCOSE | Routin | 01/16/2017 | | Results for this | | | e | 9:36 PM | | procedure are in the | | | | PDT | | results section. | + +--------+ + + + | POTASSIUM | Routin | 01/16/2017 | | Results for this | | | e | 5:48 PM | | procedure are in the | | | | PDT | | results section. | + +--------+ + + + | POC GLUCOSE | Routin | 01/16/2017 | | Results for this | | | e | 4:39 PM | | procedure are in the | | | | PDT | | results section. | + +--------+ + + + | POC GLUCOSE | Routin | 01/16/2017 | | Results for this | | | e | 11:33 AM | | procedure are in the | | | | PDT | | results section. | + +--------+ + + + | POTASSIUM | Routin | 01/16/2017 | | Results for this | | | e | 8:45 AM | | procedure are in the | | | | PDT | | results section. | + +--------+ + + + | POC GLUCOSE | Routin | 01/16/2017 | | Results for this | | | e | 5:35 AM | | procedure are in the | | | | PDT | | results section. | + +--------+ + + + | EXTERNAL LAB: CBC | Routin | 01/16/2017 | | Results for this | | | e | 4:35 AM | | procedure are in the | | | | PDT | | results section. | + +--------+ + + + | PROTIME INR | Routin | 01/16/2017 | | Results for this | | | e | 4:35 AM | | procedure are in the | | | | PDT | | results section. | + +--------+ + + + | PHOSPHORUS | Routin | 01/16/2017 | | Results for this | | | e | 4:35 AM | | procedure are in the | | | | PDT | | results section. | + +--------+ + + + | MAGNESIUM | Routin | 01/16/2017 | | Results for this | | | e | 4:35 AM | | procedure are in the | | | | PDT | | results section. | + +--------+ + + + | BASIC METABOLIC | Routin | 01/16/2017 | | Results for this | | PANEL | e | 4:35 AM | | procedure are in the | | | | PDT | | results section. | + +--------+ + + + | CT CERVICAL SPINE WO | Routin | 01/16/2017 | | Results for this | | CONTRAST | e | 3:35 AM | | procedure are in the | | | | PDT | | results section. | + +--------+ + + + | XR ABDOMEN AP | Routin | 01/16/2017 | | Results for this | | | e | 2:42 AM | | procedure are in the | | | | PDT | | results section. | + +--------+ + + + | POC GLUCOSE | Routin | 01/15/2017 | | Results for this | | | e | 8:48 PM | | procedure are in the | | | | PDT | | results section. | + +--------+ + + + | POC GLUCOSE | Routin | 01/15/2017 | | Results for this | | | e | 4:54 PM | | procedure are in the | | | | PDT | | results section. | + +--------+ + + + | SODIUM | Routin | 01/15/2017 | | Results for this | | | e | 1:55 PM | | procedure are in the | | | | PDT | | results section. | + +--------+ + + + | POC GLUCOSE | Routin | 01/15/2017 | | Results for this | | | e | 12:05 PM | | procedure are in the | | | | PDT | | results section. | + +--------+ + + + | POC GLUCOSE | Routin | 01/15/2017 | | Results for this | | | e | 6:06 AM | | procedure are in the | | | | PDT | | results section. | + +--------+ + + + | EXTERNAL LAB: CBC | Routin | 01/15/2017 | | Results for this | | | e | 4:13 AM | | procedure are in the | | | | PDT | | results section. | + +--------+ + + + | PROTIME INR | Routin | 01/15/2017 | | Results for this | | | e | 4:13 AM | | procedure are in the | | | | PDT | | results section. | + +--------+ + + + | PHOSPHORUS | Routin | 01/15/2017 | | Results for this | | | e | 4:13 AM | | procedure are in the | | | | PDT | | results section. | + +--------+ + + + | MAGNESIUM | Routin | 01/15/2017 | | Results for this | | | e | 4:13 AM | | procedure are in the | | | | PDT | | results section. | + +--------+ + + + | BASIC METABOLIC | Routin | 01/15/2017 | | Results for this | | PANEL | e | 4:13 AM | | procedure are in the | | | | PDT | | results section. | + +--------+ + + + | POC GLUCOSE | Routin | 01/14/2017 | | Results for this | | | e | 9:59 PM | | procedure are in the | | | | PDT | | results section. | + +--------+ + + + | POC GLUCOSE | Routin | 01/14/2017 | | Results for this | | | e | 4:50 PM | | procedure are in the | | | | PDT | | results section. | + +--------+ + + + | POC GLUCOSE | Routin | 01/14/2017 | | Results for this | | | e | 11:58 AM | | procedure are in the | | | | PDT | | results section. | + +--------+ + + + | CT HEAD WO CONTRAST | Routin | 01/14/2017 | | Results for this | | | e | 9:00 AM | | procedure are in the | | | | PDT | | results section. | + +--------+ + + + | POC GLUCOSE | Routin | 01/14/2017 | | Results for this | | | e | 5:53 AM | | procedure are in the | | | | PDT | | results section. | + +--------+ + + + | EXTERNAL LAB: CBC | Routin | 01/14/2017 | | Results for this | | | e | 3:58 AM | | procedure are in the | | | | PDT | | results section. | + +--------+ + + + | PROTIME INR | Routin | 01/14/2017 | | Results for this | | | e | 3:58 AM | | procedure are in the | | | | PDT | | results section. | + +--------+ + + + | PHOSPHORUS | Routin | 01/14/2017 | | Results for this | | | e | 3:58 AM | | procedure are in the | | | | PDT | | results section. | + +--------+ + + + | MAGNESIUM | Routin | 01/14/2017 | | Results for this | | | e | 3:58 AM | | procedure are in the | | | | PDT | | results section. | + +--------+ + + + | BASIC METABOLIC | Routin | 01/14/2017 | | Results for this | | PANEL | e | 3:58 AM | | procedure are in the | | | | PDT | | results section. | + +--------+ + + + | POC GLUCOSE | Routin | 01/14/2017 | | Results for this | | | e | 1:46 AM | | procedure are in the | | | | PDT | | results section. | + +--------+ + + + | POC GLUCOSE | Routin | 01/13/2017 | | Results for this | | | e | 9:37 PM | | procedure are in the | | | | PDT | | results section. | + +--------+ + + + | POC GLUCOSE | Routin | 01/13/2017 | | Results for this | | | e | 4:57 PM | | procedure are in the | | | | PDT | | results section. | + +--------+ + + + | POC GLUCOSE | Routin | 01/13/2017 | | Results for this | | | e | 2:59 PM | | procedure are in the | | | | PDT | | results section. | + +--------+ + + + | POC GLUCOSE | Routin | 01/13/2017 | | Results for this | | | e | 9:28 AM | | procedure are in the | | | | PDT | | results section. | + +--------+ + + + | EXTERNAL LAB: CBC | Routin | 01/13/2017 | | Results for this | | | e | 4:14 AM | | procedure are in the | | | | PDT | | results section. | + +--------+ + + + | PROTIME INR | Routin | 01/13/2017 | | Results for this | | | e | 4:14 AM | | procedure are in the | | | | PDT | | results section. | + +--------+ + + + | PHOSPHORUS | Routin | 01/13/2017 | | Results for this | | | e | 4:14 AM | | procedure are in the | | | | PDT | | results section. | + +--------+ + + + | MAGNESIUM | Routin | 01/13/2017 | | Results for this | | | e | 4:14 AM | | procedure are in the | | | | PDT | | results section. | + +--------+ + + + | BASIC METABOLIC | Routin | 01/13/2017 | | Results for this | | PANEL | e | 4:14 AM | | procedure are in the | | | | PDT | | results section. | + +--------+ + + + | POC GLUCOSE | Routin | 01/13/2017 | | Results for this | | | e | 2:20 AM | | procedure are in the | | | | PDT | | results section. | + +--------+ + + + | POC GLUCOSE | Routin | 01/12/2017 | | Results for this | | | e | 4:43 PM | | procedure are in the | | | | PDT | | results section. | + +--------+ + + + | POC GLUCOSE | Routin | 01/12/2017 | | Results for this | | | e | 12:14 PM | | procedure are in the | | | | PDT | | results section. | + +--------+ + + + | CT CERVICAL SPINE WO | Routin | 01/12/2017 | | Results for this | | CONTRAST | e | 8:13 AM | | procedure are in the | | | | PDT | | results section. | + +--------+ + + + | EXTERNAL LAB: CBC | Routin | 01/12/2017 | | Results for this | | | e | 5:58 AM | | procedure are in the | | | | PDT | | results section. | + +--------+ + + + | PROTIME INR | Routin | 01/12/2017 | | Results for this | | | e | 5:58 AM | | procedure are in the | | | | PDT | | results section. | + +--------+ + + + | PHOSPHORUS | Routin | 01/12/2017 | | Results for this | | | e | 5:58 AM | | procedure are in the | | | | PDT | | results section. | + +--------+ + + + | MAGNESIUM | Routin | 01/12/2017 | | Results for this | | | e | 5:58 AM | | procedure are in the | | | | PDT | | results section. | + +--------+ + + + | BASIC METABOLIC | Routin | 01/12/2017 | | Results for this | | PANEL | e | 5:58 AM | | procedure are in the | | | | PDT | | results section. | + +--------+ + + + | POC GLUCOSE | Routin | 01/12/2017 | | Results for this | | | e | 5:39 AM | | procedure are in the | | | | PDT | | results section. | + +--------+ + + + | POC GLUCOSE | Routin | 01/11/2017 | | Results for this | | | e | 8:00 PM | | procedure are in the | | | | PDT | | results section. | + +--------+ + + + | POC GLUCOSE | Routin | 01/11/2017 | | Results for this | | | e | 2:27 PM | | procedure are in the | | | | PDT | | results section. | + +--------+ + + + | POC GLUCOSE | Routin | 01/11/2017 | | Results for this | | | e | 10:06 AM | | procedure are in the | | | | PDT | | results section. | + +--------+ + + + | POC GLUCOSE | Routin | 01/11/2017 | | Results for this | | | e | 6:26 AM | | procedure are in the | | | | PDT | | results section. | + +--------+ + + + | EXTERNAL LAB: CBC | Routin | 01/11/2017 | | Results for this | | | e | 4:07 AM | | procedure are in the | | | | PDT | | results section. | + +--------+ + + + | PROTIME INR | Routin | 01/11/2017 | | Results for this | | | e | 4:07 AM | | procedure are in the | | | | PDT | | results section. | + +--------+ + + + | PHOSPHORUS | Routin | 01/11/2017 | | Results for this | | | e | 4:07 AM | | procedure are in the | | | | PDT | | results section. | + +--------+ + + + | MAGNESIUM | Routin | 01/11/2017 | | Results for this | | | e | 4:07 AM | | procedure are in the | | | | PDT | | results section. | + +--------+ + + + | BASIC METABOLIC | Routin | 01/11/2017 | | Results for this | | PANEL | e | 4:07 AM | | procedure are in the | | | | PDT | | results section. | + +--------+ + + + | POC GLUCOSE | Routin | 01/11/2017 | | Results for this | | | e | 2:09 AM | | procedure are in the | | | | PDT | | results section. | + +--------+ + + + | POC GLUCOSE | Routin | 01/10/2017 | | Results for this | | | e | 10:22 PM | | procedure are in the | | | | PDT | | results section. | + +--------+ + + + | POC GLUCOSE | Routin | 01/10/2017 | | Results for this | | | e | 6:44 PM | | procedure are in the | | | | PDT | | results section. | + +--------+ + + + | POTASSIUM | Routin | 01/10/2017 | | Results for this | | | e | 4:07 PM | | procedure are in the | | | | PDT | | results section. | + +--------+ + + + | PHOSPHORUS | Routin | 01/10/2017 | | Results for this | | | e | 4:07 PM | | procedure are in the | | | | PDT | | results section. | + +--------+ + + + | MAGNESIUM | Routin | 01/10/2017 | | Results for this | | | e | 4:07 PM | | procedure are in the | | | | PDT | | results section. | + +--------+ + + + | POC GLUCOSE | Routin | 01/10/2017 | | Results for this | | | e | 3:03 PM | | procedure are in the | | | | PDT | | results section. | + +--------+ + + + | POC GLUCOSE | Routin | 01/10/2017 | | Results for this | | | e | 12:58 PM | | procedure are in the | | | | PDT | | results section. | + +--------+ + + + | POC GLUCOSE | Routin | 01/10/2017 | | Results for this | | | e | 9:35 AM | | procedure are in the | | | | PDT | | results section. | + +--------+ + + + | POC GLUCOSE | Routin | 01/10/2017 | | Results for this | | | e | 8:33 AM | | procedure are in the | | | | PDT | | results section. | + +--------+ + + + | POC GLUCOSE | Routin | 01/10/2017 | | Results for this | | | e | 7:28 AM | | procedure are in the | | | | PDT | | results section. | + +--------+ + + + | POC GLUCOSE | Routin | 01/10/2017 | | Results for this | | | e | 6:23 AM | | procedure are in the | | | | PDT | | results section. | + +--------+ + + + | POC GLUCOSE | Routin | 01/10/2017 | | Results for this | | | e | 4:53 AM | | procedure are in the | | | | PDT | | results section. | + +--------+ + + + | EXTERNAL LAB: CBC | Routin | 01/10/2017 | | Results for this | | | e | 4:33 AM | | procedure are in the | | | | PDT | | results section. | + +--------+ + + + | PROTIME INR | Routin | 01/10/2017 | | Results for this | | | e | 4:33 AM | | procedure are in the | | | | PDT | | results section. | + +--------+ + + + | PHOSPHORUS | Routin | 01/10/2017 | | Results for this | | | e | 4:33 AM | | procedure are in the | | | | PDT | | results section. | + +--------+ + + + | MAGNESIUM | Routin | 01/10/2017 | | Results for this | | | e | 4:33 AM | | procedure are in the | | | | PDT | | results section. | + +--------+ + + + | HEMOGLOBIN A1C | Routin | 01/10/2017 | | Results for this | | | e | 4:33 AM | | procedure are in the | | | | PDT | | results section. | + +--------+ + + + | BASIC METABOLIC | Routin | 01/10/2017 | | Results for this | | PANEL | e | 4:33 AM | | procedure are in the | | | | PDT | | results section. | + +--------+ + + + | POC GLUCOSE | Routin | 01/10/2017 | | Results for this | | | e | 3:49 AM | | procedure are in the | | | | PDT | | results section. | + +--------+ + + + | POC GLUCOSE | Routin | 01/10/2017 | | Results for this | | | e | 2:46 AM | | procedure are in the | | | | PDT | | results section. | + +--------+ + + + | POC GLUCOSE | Routin | 01/10/2017 | | Results for this | | | e | 1:43 AM | | procedure are in the | | | | PDT | | results section. | + +--------+ + + + | POC GLUCOSE | Routin | 01/10/2017 | | Results for this | | | e | 12:39 AM | | procedure are in the | | | | PDT | | results section. | + +--------+ + + + | POC GLUCOSE | Routin | 01/09/2017 | | Results for this | | | e | 11:35 PM | | procedure are in the | | | | PDT | | results section. | + +--------+ + + + | POC GLUCOSE | Routin | 01/09/2017 | | Results for this | | | e | 10:23 PM | | procedure are in the | | | | PDT | | results section. | + +--------+ + + + | MRI CERVICAL SPINE | Routin | 01/09/2017 | | Results for this | | WO CONTRAST | e | 9:56 PM | | procedure are in the | | | | PDT | | results section. | + +--------+ + + + | MRI BRAIN WO | Routin | 01/09/2017 | | Results for this | | CONTRAST | e | 9:39 PM | | procedure are in the | | | | PDT | | results section. | + +--------+ + + + | XR CHEST 1 VIEW | Routin | 01/09/2017 | | Results for this | | | e | 7:30 PM | | procedure are in the | | | | PDT | | results section. | + +--------+ + + + | MRSA NAAT | Routin | 01/09/2017 | | Results for this | | | e | 6:55 PM | | procedure are in the | | | | PDT | | results section. | + +--------+ + + + | GRAM STAIN, REFLEX | STAT | 01/09/2017 | | Results for this | | SPUTUM CULTURE | | 6:44 PM | | procedure are in the | | | | PDT | | results section. | + +--------+ + + + | EXTERNAL LAB: CBC | Routin | 01/09/2017 | | Results for this | | | e | 6:25 PM | | procedure are in the | | | | PDT | | results section. | + +--------+ + + + | PHOSPHORUS | Routin | 01/09/2017 | | Results for this | | | e | 6:25 PM | | procedure are in the | | | | PDT | | results section. | + +--------+ + + + | MAGNESIUM | Routin | 01/09/2017 | | Results for this | | | e | 6:25 PM | | procedure are in the | | | | PDT | | results section. | + +--------+ + + + | CALCIUM, IONIZED | Routin | 01/09/2017 | | Results for this | | | e | 6:25 PM | | procedure are in the | | | | PDT | | results section. | + +--------+ + + + | COMPREHENSIVE | Routin | 01/09/2017 | | Results for this | | METABOLIC PANEL | e | 6:25 PM | | procedure are in the | | | | PDT | | results section. | + +--------+ + + + | CT ANGIOGRAM HEAD | Routin | 01/09/2017 | | Results for this | | NECK W CONTRAST | e | 5:57 PM | | procedure are in the | | | | PDT | | results section. | + +--------+ + + + | POC GLUCOSE | Routin | 01/09/2017 | | Results for this | | | e | 5:49 PM | | procedure are in the | | | | PDT | | results section. | + +--------+ + + + | FL C ARM > 1 HOUR | Routin | 01/09/2017 | | Results for this | | | e | 3:43 PM | | procedure are in the | | | | PDT | | results section. | + +--------+ + + + | POC ISTAT, CG8, | Routin | 01/09/2017 | | Results for this | | ARTERIAL | e | 2:59 PM | | procedure are in the | | | | PDT | | results section. | + +--------+ + + + | POC ELIGIOCHIDIRACHELEDaryl, | Routin | 01/09/2017 | | Results for this | | ARTERIAL | e | 12:12 PM | | procedure are in the | | | | PDT | | results section. | + +--------+ + + + | LORETTA ELIGIOCHIDIRACHELEDaryl, | Routin | 01/09/2017 | | Results for this | | ARTERIAL | e | 11:07 AM | | procedure are in the | | | | PDT | | results section. | + +--------+ + + + | POC GLUCOSE | Routin | 01/09/2017 | | Results for this | | | e | 6:19 AM | | procedure are in the | | | | PDT | | results section. | + +--------+ + + + | PROTIME INR | Routin | 01/09/2017 | | Results for this | | | e | 4:43 AM | | procedure are in the | | | | PDT | | results section. | + +--------+ + + + | TYPE AND SCREEN | Routin | 01/09/2017 | | Results for this | | | e | 4:43 AM | | procedure are in the | | | | PDT | | results section. | + +--------+ + + + | POC GLUCOSE | Routin | 01/08/2017 | | Results for this | | | e | 9:02 PM | | procedure are in the | | | | PDT | | results section. | + +--------+ + + + | POC GLUCOSE | Routin | 01/08/2017 | | Results for this | | | e | 4:05 PM | | procedure are in the | | | | PDT | | results section. | + +--------+ + + + | POC GLUCOSE | Routin | 01/08/2017 | | Results for this | | | e | 11:23 AM | | procedure are in the | | | | PDT | | results section. | + +--------+ + + + | PROTIME INR | Routin | 01/08/2017 | | Results for this | | | e | 6:25 AM | | procedure are in the | | | | PDT | | results section. | + +--------+ + + + | POC GLUCOSE | Routin | 01/08/2017 | | Results for this | | | e | 5:26 AM | | procedure are in the | | | | PDT | | results section. | + +--------+ + + + | POC GLUCOSE | Routin | 01/08/2017 | | Results for this | | | e | 12:03 AM | | procedure are in the | | | | PDT | | results section. | + +--------+ + + + | POC GLUCOSE | Routin | 01/07/2017 | | Results for this | | | e | 5:41 PM | | procedure are in the | | | | PDT | | results section. | + +--------+ + + + | XR SHOULDER RIGHT 2 | Routin | 01/07/2017 | | Results for this | | + VW | e | 1:46 PM | | procedure are in the | | | | PDT | | results section. | + +--------+ + + + | TROPONIN I | Routin | 01/07/2017 | | Results for this | | | e | 11:44 AM | | procedure are in the | | | | PDT | | results section. | + +--------+ + + + | CK-MB | Routin | 01/07/2017 | | Results for this | | | e | 11:44 AM | | procedure are in the | | | | PDT | | results section. | + +--------+ + + + | CK TOTAL | Routin | 01/07/2017 | | Results for this | | | e | 11:44 AM | | procedure are in the | | | | PDT | | results section. | + +--------+ + + + | POC GLUCOSE | Routin | 01/07/2017 | | Results for this | | | e | 11:37 AM | | procedure are in the | | | | PDT | | results section. | + +--------+ + + + | CT ANGIOGRAM NECK W | Routin | 01/07/2017 | | Results for this | | CONTRAST | e | 10:11 AM | | procedure are in the | | | | PDT | | results section. | + +--------+ + + + | CT THORACIC LUMBAR | Routin | 01/07/2017 | | Results for this | | SPINE WO CONTRAST | e | 10:11 AM | | procedure are in the | | | | PDT | | results section. | + +--------+ + + + | CULTURE, URINE | Timed | 01/07/2017 | | Results for this | | | | 7:52 AM | | procedure are in the | | | | PDT | | results section. | + +--------+ + + + | ECHO LIMITED | Routin | 01/07/2017 | | Results for this | | | e | 7:09 AM | | procedure are in the | | | | PDT | | results section. | + +--------+ + + + | EXTERNAL LAB: CBC | Routin | 01/07/2017 | | Results for this | | | e | 6:08 AM | | procedure are in the | | | | PDT | | results section. | + +--------+ + + + | TROPONIN I | Routin | 01/07/2017 | | Results for this | | | e | 6:08 AM | | procedure are in the | | | | PDT | | results section. | + +--------+ + + + | CK-MB | Routin | 01/07/2017 | | Results for this | | | e | 6:08 AM | | procedure are in the | | | | PDT | | results section. | + +--------+ + + + | TSH | Routin | 01/07/2017 | | Results for this | | | e | 6:08 AM | | procedure are in the | | | | PDT | | results section. | + +--------+ + + + | T4, FREE | Routin | 01/07/2017 | | Results for this | | | e | 6:08 AM | | procedure are in the | | | | PDT | | results section. | + +--------+ + + + | PHOSPHORUS | Routin | 01/07/2017 | | Results for this | | | e | 6:08 AM | | procedure are in the | | | | PDT | | results section. | + +--------+ + + + | MAGNESIUM | Routin | 01/07/2017 | | Results for this | | | e | 6:08 AM | | procedure are in the | | | | PDT | | results section. | + +--------+ + + + | CK TOTAL | Routin | 01/07/2017 | | Results for this | | | e | 6:08 AM | | procedure are in the | | | | PDT | | results section. | + +--------+ + + + | BASIC METABOLIC | Routin | 01/07/2017 | | Results for this | | PANEL | e | 6:08 AM | | procedure are in the | | | | PDT | | results section. | + +--------+ + + + | POC GLUCOSE | Routin | 01/07/2017 | | Results for this | | | e | 5:31 AM | | procedure are in the | | | | PDT | | results section. | + +--------+ + + + | XR KNEE LEFT 1 - 2 | Routin | 01/07/2017 | | Results for this | | VW | e | 4:09 AM | | procedure are in the | | | | PDT | | results section. | + +--------+ + + + | XR KNEE RIGHT 1 - 2 | Routin | 01/07/2017 | | Results for this | | VW | e | 2:58 AM | | procedure are in the | | | | PDT | | results section. | + +--------+ + + + | CT MAXILLOFACIAL WO | Routin | 01/07/2017 | | Results for this | | CONTRAST | e | 1:03 AM | | procedure are in the | | | | PDT | | results section. | + +--------+ + + + | MRI CERVICAL SPINE | Routin | 01/07/2017 | | Results for this | | WO CONTRAST | e | 1:01 AM | | procedure are in the | | | | PDT | | results section. | + +--------+ + + + | HISTORICAL LAB PANEL | Routin | 01/06/2017 | | Results for this | | RESULT | e | 11:35 PM | | procedure are in the | | | | PDT | | results section. | + +--------+ + + + | ALCOHOL | Routin | 01/06/2017 | | Results for this | | | e | 11:35 PM | | procedure are in the | | | | PDT | | results section. | + +--------+ + + + | XR CHEST 2 VIEWS | Routin | 01/06/2017 | | Results for this | | | e | 9:04 PM | | procedure are in the | | | | PDT | | results section. | + +--------+ + + + documented in this encounter Results POC Glucose (01/22/2017 11:45 AM PDT) + + + + + + | Component | Value | Ref Range | Performed | Pathologist | | | | | At | Signature | + + + + + + | Glucose, | 173 (H)Comment: Testing | 65 - 99 mg/dL | EXTERNAL | | | Fingerstick | performed at [facility];[address] | | LAB | | | | [address];[place] | | | | | | [address] | | | | + + + + + + + + | Specimen | + + | | + + + +---------+ + + | Performing | Address | City/State/Zipcode | Phone Number | | Organization | | | | + +---------+ + + | EXTERNAL LAB | | | | + +---------+ + + POC Glucose (01/22/2017 5:31 AM PDT) + + + + + + | Component | Value | Ref Range | Performed | Pathologist | | | | | At | Signature | + + + + + + | Glucose, | 131 (H)Comment: Testing | 65 - 99 mg/dL | EXTERNAL | | | Fingerstick | performed at [facility];[address] | | LAB | | | | [address];[place] | | | | | | [address] | | | | + + + + + + + + | Specimen | + + | | + + + +---------+ + + | Performing | Address | City/State/Zipcode | Phone Number | | Organization | | | | + +---------+ + + | EXTERNAL LAB | | | | + +---------+ + + Protime INR (01/22/2017 5:06 AM PDT) + + + + + + | Component | Value | Ref Range | Performed | Pathologist | | | | | At | Signature | + + + + + + | INR | 1.1Comment: REFERENCE | | EXTERNAL | | | | RANGE:0.9 - 1.2 | | LAB | | | | NON-ANTICOAGULATED2.0 | | | | | | - 3.0 ALL OTHER | | | | | | THERAPEUTIC | | | | | | INDICATIONS2.5 - 3.5 | | | | | | MECHANICAL HEART VALVES, | | | | | | RECURRENT OR SYSTEMIC | | | | | | EMBOLISMTesting | | | | | | performed at [facility];[address] | | | | | | [address];[place], [place] | | | | | | [address] | | | | + + + + + + + + | Specimen | + + | Blood specimen | | (specimen) | + + + +---------+ + + | Performing | Address | City/State/Zipcode | Phone Number | | Organization | | | | + +---------+ + + | EXTERNAL LAB | | | | + +---------+ + + Phosphorus (01/22/2017 5:06 AM PDT) + + + + + + | Component | Value | Ref Range | Performed | Pathologist | | | | | At | Signature | + + + + + + | PHOSPHORUS | 2.9Comment: Testing | 2.3 - 4.8 mg/dL | EXTERNAL | | | | performed at [facility], [address] | | LAB | | | | [address], | | | | | | [place] [address] | | | | + + + + + + + + | Specimen | + + | Blood specimen | | (specimen) | + + + +---------+ + + | Performing | Address | City/State/Zipcode | Phone Number | | Organization | | | | + +---------+ + + | EXTERNAL LAB | | | | + +---------+ + + POC Glucose (01/21/2017 9:31 PM PDT) + + + + + + | Component | Value | Ref Range | Performed | Pathologist | | | | | At | Signature | + + + + + + | Glucose, | 112 (H)Comment: Testing | 65 - 99 mg/dL | EXTERNAL | | | Fingerstick | performed at [facility];[address] | | LAB | | | | [address];[place], [place] | | | | | | [address] | | | | + + + + + + + + | Specimen | + + | | + + + +---------+ + + | Performing | Address | City/State/Zipcode | Phone Number | | Organization | | | | + +---------+ + + | EXTERNAL LAB | | | | + +---------+ + + POC Glucose (01/21/2017 4:31 PM PDT) + + + + + + | Component | Value | Ref Range | Performed | Pathologist | | | | | At | Signature | + + + + + + | Glucose, | 131 (H)Comment: Testing | 65 - 99 mg/dL | EXTERNAL | | | Fingerstick | performed at [facility];[address] | | LAB | | | | [address];[place] | | | | | | [address] | | | | + + + + + + + + | Specimen | + + | | + + + +---------+ + + | Performing | Address | City/State/Zipcode | Phone Number | | Organization | | | | + +---------+ + + | EXTERNAL LAB | | | | + +---------+ + + Phosphorus (01/21/2017 1:51 PM PDT) + + + + + + | Component | Value | Ref Range | Performed | Pathologist | | | | | At | Signature | + + + + + + | PHOSPHORUS | 2.4Comment: SPECIMEN | 2.3 - 4.8 mg/dL | EXTERNAL | | | | SLIGHTLY | | LAB | | | | HEMOLYZEDTesting | | | | | | performed at [facility], [address] | | | | | | [address], | | | | | | [place] [address] | | | | + + + + + + + + | Specimen | + + | Blood specimen | | (specimen) | + + + +---------+ + + | Performing | Address | City/State/Zipcode | Phone Number | | Organization | | | | + +---------+ + + | EXTERNAL LAB | | | | + +---------+ + + POC Glucose (01/21/2017 11:24 AM PDT) + + + + + + | Component | Value | Ref Range | Performed | Pathologist | | | | | At | Signature | + + + + + + | Glucose, | 174 (H)Comment: Testing | 65 - 99 mg/dL | EXTERNAL | | | Fingerstick | performed at [facility];[address] | | LAB | | | | [address];[place] | | | | | | [address] | | | | + + + + + + + + | Specimen | + + | | + + + +---------+ + + | Performing | Address | City/State/Zipcode | Phone Number | | Organization | | | | + +---------+ + + | EXTERNAL LAB | | | | + +---------+ + + Felaime ERAN (01/21/2017 5:36 AM PDT) + + + + + + | Component | Value | Ref Range | Performed | Pathologist | | | | | At | Signature | + + + + + + | INR | 1.1Comment: REFERENCE | | EXTERNAL | | | | RANGE:0.9 - 1.2 | | LAB | | | | NON-ANTICOAGULATED2.0 | | | | | | - 3.0 ALL OTHER | | | | | | THERAPEUTIC | | | | | | INDICATIONS2.5 - 3.5 | | | | | | MECHANICAL HEART VALVES, | | | | | | RECURRENT OR SYSTEMIC | | | | | | EMBOLISMTesting | | | | | | performed at [facility];[address] | | | | | | [facility];[place], [place] | | | | | | [address] | | | | + + + [...] + +---------+ + + External Lab: CBC (01/21/2017 5:36 AM PDT) + + + + + + | Component | Value | Ref Range | Performed | Pathologist | | | | | At | Signature | + + + + + + | WBC | 12.91 (H) | 3.80 - 11.00 | EXTERNAL | | | | | K/uL | LAB | | + + + + + + | RED CELL | 3.94 (L) | 4.20 - 5.70 | EXTERNAL | | | COUNT | | M/uL | LAB | | + + + + + + | Hgb | 11.5 (L) | 13.2 - 17.0 | EXTERNAL | | | | | g/dL | LAB | | + + + + + + | Hematocrit, | 34.1 (L) | 39.0 - 50.0 % | EXTERNAL | | | POC | | | LAB | | + + + + + + | MCV | 86.5 | 80.0 - 100.0 fl | EXTERNAL | | | | | | LAB | | + + + + + + | MCH | 29.2 | 27.0 - 34.0 pg | EXTERNAL | | | | | | LAB | | + + + + + + | MCHC | 33.8 | 32.0 - 35.5 | EXTERNAL | | | | | g/dL | LAB | | + + + + + + | RDW-CV | 44.2 | 37 - 53 fl | EXTERNAL | | | | | | LAB | | + + + + + + | Platelet | 282 | 150 - 400 K/uL | EXTERNAL | | | Count | | | LAB | | | Plasma | | | | | + + + + + + | MPV | 8.5 | fl | EXTERNAL | | | | | | LAB | | + + + + + + | Differentia | MANUAL | | EXTERNAL | | | l Type | | | LAB | | + + + + + + | Segmented | 62 | % | EXTERNAL | | | Neutrophils | | | LAB | | | Manual | | | | | + + + + + + | % Bands | 8 | % | EXTERNAL | | | | | | LAB | | + + + + + + | % | 3 | % | EXTERNAL | | | Metamyelocy | | | LAB | | | lang | | | | | + + + + + + | % | 2 | % | EXTERNAL | | | Myelocytes | | | LAB | | + + + + + + | Lymphocytes | 16 | % | EXTERNAL | | | Manual | | | LAB | | + + + + + + | Monocytes | 6 | % | EXTERNAL | | | Manual | | | LAB | | + + + + + + | Eosinophils | 3 | % | EXTERNAL | | | Manual | | | LAB | | + + + + + + | Absolute | 8.00 (H) | 1.90 - 7.40 | EXTERNAL | | | Neutrophils | | K/uL | LAB | | + + + + + + | Bands | 1.03 (H) | 0.00 - 0.20 | EXTERNAL | | | Manual | | K/uL | LAB | | + + + + + + | Absolute | 0.39 (H) | K/uL | EXTERNAL | | | Metamyelocy | | | LAB | | | lang | | | | | + + + + + + | Absolute | 0.26 (H) | K/uL | EXTERNAL | | | Myelocytes | | | LAB | | + + + + + + | Absolute | 2.07 | 1.00 - 3.90 | EXTERNAL | | | Lymphocytes | | K/uL | LAB | | + + + + + + | Absolute | 0.77 | 0.00 - 0.80 | EXTERNAL | | | Monocytes | | K/uL | LAB | | + + + + + + | Absolute | 0.39 | 0.00 - 0.50 | EXTERNAL | | | Eosinophils | | K/uL | LAB | | + + + + + + | RBC | RBC AND PLT MORPHOLOGY | | EXTERNAL | | | Morphology | APPEAR NORMALComment: | | LAB | | | | Testing performed at | | | | | | [facility], [address] | | | | | | [place], [place] | | | | | | [address] | | | | + + + + + + + + | Specimen | + + | Blood specimen | | (specimen) | + + + +---------+ + + | Performing | Address | City/State/Zipcode | Phone Number | | Organization | | | | + +---------+ + + | EXTERNAL LAB | | | | + +---------+ + + Phosphorus (01/21/2017 5:36 AM PDT) + + + + + + | Component | Value | Ref Range | Performed | Pathologist | | | | | At | Signature | + + + + + + | PHOSPHORUS | 2.1 (L)Comment: Testing | 2.3 - 4.8 mg/dL | EXTERNAL | | | | performed at [facility], [address] | | LAB | | | | [address], | | | | | | [place] [address] | | | | + + + + + + + + | Specimen | + + | Blood specimen | | (specimen) | + + + +---------+ + + | Performing | Address | City/State/Zipcode | Phone Number | | Organization | | | | + +---------+ + + | EXTERNAL LAB | | | | + +---------+ + + Magnesium (01/21/2017 5:36 AM PDT) + + + + + + | Component | Value | Ref Range | Performed | Pathologist | | | | | At | Signature | + + + + + + | Magnesium | 2.0Comment: Testing | 1.7 - 2.4 mg/dL | EXTERNAL | | | | performed at [facility], [address] | | LAB | | | | [address], | | | | | | [place] [address] | | | | + + + [...] + +---------+ + + Basic Metabolic Panel (01/21/2017 5:36 AM PDT) + + + + + + | Component | Value | Ref Range | Performed | Pathologist | | | | | At | Signature | + + + + + + | Na | 135 | 135 - 145 | EXTERNAL | | | | | mmol/L | LAB | | + + + + + + | K | 4.0 | 3.5 - 4.9 | EXTERNAL | | | | | mmol/L | LAB | | + + + + + + | Cl | 104 | 99 - 109 mmol/L | EXTERNAL | | | | | | LAB | | + + + + + + | CO2 | 21 (L) | 23 - 32 mmol/L | EXTERNAL | | | | | | LAB | | + + + + + + | Anion Gap | 14 | 5 - 20 mmol/L | EXTERNAL | | | | | | LAB | | + + + + + + | Glucose, | 107 (H) | 65 - 99 mg/dL | EXTERNAL | | | Fasting | | | LAB | | + + + + + + | BUN | 7 (L) | 8 - 25 mg/dL | EXTERNAL | | | | | | LAB | | + + + + + + | Creatinine | 0.7 | 0.70 - 1.30 | EXTERNAL | | | | | mg/dL | LAB | | + + + + + + | BUN/Creatin | 10 | | EXTERNAL | | | ine [...] BY | | | | | | 1.210.Testing performed | | | | | | at [facility], [address] | | | | | | [facility], | | | | | | [place] [address] | | | | + + + + + + + + | Specimen | + + | Blood specimen | | (specimen) | + + + +---------+ + + | Performing | Address | City/State/Zipcode | Phone Number | | Organization | | | | + +---------+ + + | EXTERNAL LAB | | | | + +---------+ + + POC Glucose (01/21/2017 5:25 AM PDT) + + + + + + | Component | Value | Ref Range | Performed | Pathologist | | | | | At | Signature | + + + + + + | Glucose, | 117 (H)Comment: Testing | 65 - 99 mg/dL | EXTERNAL | | | Fingerstick | performed at [facility];[address] | | LAB | | | | [address];[place], [place] | | | | | | [address] | | | | + + + + + + + + | Specimen | + + | | + + + +---------+ + + | Performing | Address | City/State/Zipcode | Phone Number | | Organization | | | | + +---------+ + + | EXTERNAL LAB | | | | + +---------+ + + POC Glucose (01/20/2017 9:47 PM PDT) + + + + + + | Component | Value | Ref Range | Performed | Pathologist | | | | | At | Signature | + + + + + + | Glucose, | 130 (H)Comment: Testing | 65 - 99 mg/dL | EXTERNAL | | | Fingerstick | performed at [facility];[address] | | LAB | | | | [address];[place], [place] | | | | | | [address] | | | | + + + + + + + + | Specimen | + + | | + + + +---------+ + + | Performing | Address | City/State/Zipcode | Phone Number | | Organization | | | | + +---------+ + + | EXTERNAL LAB | | | | + +---------+ + + POC Glucose (01/20/2017 4:44 PM PDT) + + + + + + | Component | Value | Ref Range | Performed | Pathologist | | | | | At | Signature | + + + + + + | Glucose, | 89Comment: Testing | 65 - 99 mg/dL | EXTERNAL | | | Fingerstick | performed at [facility];[address] | | LAB | | | | [address];[place] | | | | | | [address] | | | | + + + + + + + + | Specimen | + + | | + + + +---------+ + + | Performing | Address | City/State/Zipcode | Phone Number | | Organization | | | | + +---------+ + + | EXTERNAL LAB | | | | + +---------+ + + POC Glucose (01/20/2017 12:04 PM PDT) + + + + + + | Component | Value | Ref Range | Performed | Pathologist | | | | | At | Signature | + + + + + + | Glucose, | 103 (H)Comment: Testing | 65 - 99 mg/dL | EXTERNAL | | | Fingerstick | performed at [facility];[address] | | LAB | | | | [address];[place] | | | | | | [address] | | | | + + + + + + + + | Specimen | + + | | + + + +---------+ + + | Performing | Address | City/State/Zipcode | Phone Number | | Organization | | | | + +---------+ + + | EXTERNAL LAB | | | | + +---------+ + + POC Glucose (01/20/2017 10:20 AM PDT) + + + + + + | Component | Value | Ref Range | Performed | Pathologist | | | | | At | Signature | + + + + + + | Glucose, | 121 (H)Comment: Testing | 65 - 99 mg/dL | EXTERNAL | | | Fingerstick | performed at [facility];[address] | | LAB | | | | [address];[place] | | | | | | [address] | | | | + + + + + + + + | Specimen | + + | | + + + +---------+ + + | Performing | Address | City/State/Zipcode | Phone Number | | Organization | | | | + +---------+ + + | EXTERNAL LAB | | | | + +---------+ + + POC Glucose (01/20/2017 5:55 AM PDT) + + + + + + | Component | Value | Ref Range | Performed | Pathologist | | | | | At | Signature | + + + + + + | Glucose, | 78Comment: Testing | 65 - 99 mg/dL | EXTERNAL | | | Fingerstick | performed at [facility];[address] | | LAB | | | | [address];[place], [place] | | | | | | [address] | | | | + + + + + + + + | Specimen | + + | | + + + +---------+ + + | Performing | Address | City/State/Zipcode | Phone Number | | Organization | | | | + +---------+ + + | EXTERNAL LAB | | | | + +---------+ + + Protime INR (01/20/2017 4:09 AM PDT) + + + + + + | Component | Value | Ref Range | Performed | Pathologist | | | | | At | Signature | + + + + + + | INR | 1.1Comment: REFERENCE | | EXTERNAL | | | | RANGE:0.9 - 1.2 | | LAB | | | | NON-ANTICOAGULATED2.0 | | | | | | - 3.0 ALL OTHER | | | | | | THERAPEUTIC | | | | | | INDICATIONS2.5 - 3.5 | | | | | | MECHANICAL HEART VALVES, | | | | | | RECURRENT OR SYSTEMIC | | | | | | EMBOLISMTesting | | | | | | performed at [facility];[address] | | | | | | [address] [facility];[place], [place] | | | | | | [address] | | | | + + + [...] + +---------+ + + External Lab: CBC (01/20/2017 4:09 AM PDT) + + + + + + | Component | Value | Ref Range | Performed | Pathologist | | | | | At | Signature | + + + + + + | WBC | 12.04 (H) | 3.80 - 11.00 | EXTERNAL | | | | | K/uL | LAB | | + + + + + + | RED CELL | 3.93 (L) | 4.20 - 5.70 | EXTERNAL | | | COUNT | | M/uL | LAB | | + + + + + + | Hgb | 11.4 (L) | 13.2 - 17.0 | EXTERNAL | | | | | g/dL | LAB | | + + + + + + | Hematocrit, | 34.1 (L) | 39.0 - 50.0 % | EXTERNAL | | | POC | | | LAB | | + + + + + + | MCV | 86.7 | 80.0 - 100.0 fl | EXTERNAL | | | | | | LAB | | + + + + + + | MCH | 29.1 | 27.0 - 34.0 pg | EXTERNAL | | | | | | LAB | | + + + + + + | MCHC | 33.5 | 32.0 - 35.5 | EXTERNAL | | | | | g/dL | LAB | | + + + + + + | RDW-CV | 45.1 | 37 - 53 fl | EXTERNAL | | | | | | LAB | | + + + + + + | Platelet | 242 | 150 - 400 K/uL | EXTERNAL | | | Count | | | LAB | | | Plasma | | | | | + + + + + + | MPV | 8.3 | fl | EXTERNAL | | | | | | LAB | | + + + + + + | Differentia | MANUAL | | EXTERNAL | | | l Type | | | LAB | | + + + + + + | Segmented | 59 | % | EXTERNAL | | | Neutrophils | | | LAB | | | Manual | | | | | + + + + + + | % Bands | 10 | % | EXTERNAL | | | | | | LAB | | + + + + + + | % | 4 | % | EXTERNAL | | | Metamyelocy | | | LAB | | | lang | | | | | + + + + + + | % | 1 | % | EXTERNAL | | | Myelocytes | | | LAB | | + + + + + + | Lymphocytes | 11 | % | EXTERNAL | | | Manual | | | LAB | | + + + + + + | Monocytes | 11 | % | EXTERNAL | | | Manual | | | LAB | | + + + + + + | Eosinophils | 4 | % | EXTERNAL | | | Manual | | | LAB | | + + + + + + | Absolute | 7.12 | 1.90 - 7.40 | EXTERNAL | | | Neutrophils | | K/uL | LAB | | + + + + + + | Bands | 1.20 (H) | 0.00 - 0.20 | EXTERNAL | | | Manual | | K/uL | LAB | | + + + + + + | Absolute | 0.48 (H) | K/uL | EXTERNAL | | | Metamyelocy | | | LAB | | | lang | | | | | + + + + + + | Absolute | 0.12 (H) | K/uL | EXTERNAL | | | Myelocytes | | | LAB | | + + + + + + | Absolute | 1.32 | 1.00 - 3.90 | EXTERNAL | | | Lymphocytes | | K/uL | LAB | | + + + + + + | Absolute | 1.32 (H) | 0.00 - 0.80 | EXTERNAL | | | Monocytes | | K/uL | LAB | | + + + + + + | Absolute | 0.48 | 0.00 - 0.50 | EXTERNAL | | | Eosinophils | | K/uL | LAB | | + + + + + + | RBC | RBC AND PLT MORPHOLOGY | | EXTERNAL | | | Morphology | APPEAR NORMALComment: | | LAB | | | | Testing performed at | | | | | | [facility], [address] [place] [address] | | | | | | [facility], [place] | | | | | | [address] | | | | + + + + + + + + | Specimen | + + | Blood specimen | | (specimen) | + + + +---------+ + + | Performing | Address | City/State/Zipcode | Phone Number | | Organization | | | | + +---------+ + + | EXTERNAL LAB | | | | + +---------+ + + Phosphorus (01/20/2017 4:09 AM PDT) + + + + + + | Component | Value | Ref Range | Performed | Pathologist | | | | | At | Signature | + + + + + + | PHOSPHORUS | 3.6Comment: Testing | 2.3 - 4.8 mg/dL | EXTERNAL | | | | performed at [facility], [address] | | LAB | | | | [address], | | | | | | [place] [address] | | | | + + + + + + + + | Specimen | + + | Blood specimen | | (specimen) | + + + +---------+ + + | Performing | Address | City/State/Zipcode | Phone Number | | Organization | | | | + +---------+ + + | EXTERNAL LAB | | | | + +---------+ + + Magnesium (01/20/2017 4:09 AM PDT) + + + + + + | Component | Value | Ref Range | Performed | Pathologist | | | | | At | Signature | + + + + + + | Magnesium | 2.2Comment: Testing | 1.7 - 2.4 mg/dL | EXTERNAL | | | | performed at [facility], [address] | | LAB | | | | [address], | | | | | | [place] [address] | | | | + + + [...] + +---------+ + + Basic Metabolic Panel (01/20/2017 4:09 AM PDT) + + + + + + | Component | Value | Ref Range | Performed | Pathologist | | | | | At | Signature | + + + + + + | Na | 138 | 135 - 145 | EXTERNAL | | | | | mmol/L | LAB | | + + + + + + | K | 4.1 | 3.5 - 4.9 | EXTERNAL | | | | | mmol/L | LAB | | + + + + + + | Cl | 108 | 99 - 109 mmol/L | EXTERNAL | | | | | | LAB | | + + + + + + | CO2 | 20 (L) | 23 - 32 mmol/L | EXTERNAL | | | | | | LAB | | + + + + + + | Anion Gap | 14 | 5 - 20 mmol/L | EXTERNAL | | | | | | LAB | | + + + + + + | Glucose, | 74 | 65 - 99 mg/dL | EXTERNAL | | | Fasting | | | LAB | | + + + + + + | BUN | 14 | 8 - 25 mg/dL | EXTERNAL | | | | | | LAB | | + + + + + + | Creatinine | 0.8 | 0.70 - 1.30 | EXTERNAL | | | | | mg/dL | LAB | | + + + + + + | BUN/Creatin | 18 | | EXTERNAL | | | ine [...] BY | | | | | | 1.210.Testing performed | | | | | | at [facility], [address] | | | | | | [address], | | | | | | [place] [address] | | | | + + + + + + + + | Specimen | + + | Blood specimen | | (specimen) | + + + +---------+ + + | Performing | Address | City/State/Zipcode | Phone Number | | Organization | | | | + +---------+ + + | EXTERNAL LAB | | | | + +---------+ + + POC Glucose (01/19/2017 11:51 PM PDT) + + + + + + | Component | Value | Ref Range | Performed | Pathologist | | | | | At | Signature | + + + + + + | Glucose, | 125 (H)Comment: Testing | 65 - 99 mg/dL | EXTERNAL | | | Fingerstick | performed at [facility];[address] | | LAB | | | | [address];[place], [place] | | | | | | [address] | | | | + + + + + + + + | Specimen | + + | | + + + +---------+ + + | Performing | Address | City/State/Zipcode | Phone Number | | Organization | | | | + +---------+ + + | EXTERNAL LAB | | | | + +---------+ + + POC Glucose (01/19/2017 9:36 PM PDT) + + + + + + | Component | Value | Ref Range | Performed | Pathologist | | | | | At | Signature | + + + + + + | Glucose, | 136 (H)Comment: Testing | 65 - 99 mg/dL | EXTERNAL | | | Fingerstick | performed at [facility];[address] | | LAB | | | | [address];[place], [place] | | | | | | [address] | | | | + + + + + + + + | Specimen | + + | | + + + +---------+ + + | Performing | Address | City/State/Zipcode | Phone Number | | Organization | | | | + +---------+ + + | EXTERNAL LAB | | | | + +---------+ + + POC Glucose (01/19/2017 7:05 PM PDT) + + + + + + | Component | Value | Ref Range | Performed | Pathologist | | | | | At | Signature | + + + + + + | Glucose, | 118 (H)Comment: Testing | 65 - 99 mg/dL | EXTERNAL | | | Fingerstick | performed at [facility];[address] | | LAB | | | | [address];[place], [place] | | | | | | [address] | | | | + + + + + + + + | Specimen | + + | | + + + +---------+ + + | Performing | Address | City/State/Zipcode | Phone Number | | Organization | | | | + +---------+ + + | EXTERNAL LAB | | | | + +---------+ + + POC Glucose (01/19/2017 5:46 PM PDT) + + + + + + | Component | Value | Ref Range | Performed | Pathologist | | | | | At | Signature | + + + + + + | Glucose, | 107 (H)Comment: Testing | 65 - 99 mg/dL | EXTERNAL | | | Fingerstick | performed at [facility] [place] | | LAB | | | | [address];[place] | | | | | | [id number] | | | | + + + + + + + + | Specimen | + + | | + + + +---------+ + + | Performing | Address | City/State/Zipcode | Phone Number | | Organization | | | | + +---------+ + + | EXTERNAL LAB | | | | + +---------+ + + Potassium (01/19/2017 2:22 PM PDT) + + + + + + | Component | Value | Ref Range | Performed | Pathologist | | | | | At | Signature | + + + + + + | K | 3.1 (L)Comment: Testing | 3.5 - 4.9 | EXTERNAL | | | | performed at [facility] [place];888 | mmol/L | LAB | | | | [address];[place], [place] | | | | | | [phone] | | | | + + + + + + + + | Specimen | + + | Blood specimen | | (specimen) | + + + +---------+ + + | Performing | Address | City/State/Zipcode | Phone Number | | Organization | | | | + +---------+ + + | EXTERNAL LAB | | | | + +---------+ + + Phosphorus (01/19/2017 2:22 PM PDT) + + + + + + | Component | Value | Ref Range | Performed | Pathologist | | | | | At | Signature | + + + + + + | PHOSPHORUS | 1.4 (L)Comment: Testing | 2.3 - 4.8 mg/dL | EXTERNAL | | | | performed at [facility] [place];[address] | | LAB | | | | [address];[place], [place] | | | | | | [phone] | | | | + + + + + + + + | Specimen | + + | Blood specimen | | (specimen) | + + + +---------+ + + | Performing | Address | City/State/Zipcode | Phone Number | | Organization | | | | + +---------+ + + | EXTERNAL LAB | | | | + +---------+ + + Magnesium (01/19/2017 2:22 PM PDT) + + + + + + | Component | Value | Ref Range | Performed | Pathologist | | | | | At | Signature | + + + + + + | Magnesium | 2.0Comment: Testing | 1.7 - 2.4 mg/dL | EXTERNAL | | | | performed at [facility] [place];[facility] | | LAB | | | | [facility];[place], [place] | | | | | | [address] | | | | + + + + + + + + | Specimen | + + | Blood specimen | | (specimen) | + + + +---------+ + + | Performing | Address | City/State/Zipcode | Phone Number | | Organization | | | | + +---------+ + + | EXTERNAL LAB | | | | + +---------+ + + POC Glucose (01/19/2017 12:05 PM PDT) + + + + + + | Component | Value | Ref Range | Performed | Pathologist | | | | | At | Signature | + + + + + + | Glucose, | 146 (H)Comment: Testing | 65 - 99 mg/dL | EXTERNAL | | | Fingerstick | performed at [facility] [place];[address] | | LAB | | | | [address];[place] | | | | | | [address] | | | | + + + + + + + + | Specimen | + + | | + + + +---------+ + + | Performing | Address | City/State/Zipcode | Phone Number | | Organization | | | | + +---------+ + + | EXTERNAL LAB | | | | + +---------+ + + POC Glucose (01/19/2017 6:05 AM PDT) + + + + + + | Component | Value | Ref Range | Performed | Pathologist | | | | | At | Signature | + + + + + + | Glucose, | 136 (H)Comment: Testing | 65 - 99 mg/dL | EXTERNAL | | | Fingerstick | performed at [facility];[address] | | LAB | | | | [address];[place] | | | | | | [address] | | | | + + + + + + + + | Specimen | + + | | + + + +---------+ + + | Performing | Address | City/State/Zipcode | Phone Number | | Organization | | | | + +---------+ + + | EXTERNAL LAB | | | | + +---------+ + + Felaime ERAN (01/19/2017 3:55 AM PDT) + + + + + + | Component | Value | Ref Range | Performed | Pathologist | | | | | At | Signature | + + + + + + | INR | 1.1Comment: REFERENCE | | EXTERNAL | | | | RANGE:0.9 - 1.2 | | LAB | | | | NON-ANTICOAGULATED2.0 | | | | | | - 3.0 ALL OTHER | | | | | | THERAPEUTIC | | | | | | INDICATIONS2.5 - 3.5 | | | | | | MECHANICAL HEART VALVES, | | | | | | RECURRENT OR SYSTEMIC | | | | | | EMBOLISMTesting | | | | | | performed at [facility] | | | | | | [facility];[place], [place] | | | | | | [address] | | | | + + + [...] + +---------+ + + External Lab: CBC (01/19/2017 3:55 AM PDT) + + + + + + | Component | Value | Ref Range | Performed | Pathologist | | | | | At | Signature | + + + + + + | WBC | 9.45 | 3.80 - 11.00 | EXTERNAL | | | | | K/uL | LAB | | + + + + + + | RED CELL | 3.71 (L) | 4.20 - 5.70 | EXTERNAL | | | COUNT | | M/uL | LAB | | + + + + + + | Hgb | 10.7 (L) | 13.2 - 17.0 | EXTERNAL | | | | | g/dL | LAB | | + + + + + + | Hematocrit, | 32.1 (L) | 39.0 - 50.0 % | EXTERNAL | | | POC | | | LAB | | + + + + + + | MCV | 86.4 | 80.0 - 100.0 fl | EXTERNAL | | | | | | LAB | | + + + + + + | MCH | 28.9 | 27.0 - 34.0 pg | EXTERNAL | | | | | | LAB | | + + + + + + | MCHC | 33.4 | 32.0 - 35.5 | EXTERNAL | | | | | g/dL | LAB | | + + + + + + | RDW-CV | 45.5 | 37 - 53 fl | EXTERNAL | | | | | | LAB | | + + + + + + | Platelet | 244 | 150 - 400 K/uL | EXTERNAL | | | Count | | | LAB | | | Plasma | | | | | + + + + + + | MPV | 8.2 | fl | EXTERNAL | | | | | | LAB | | + + + + + + | Differentia | MANUAL | | EXTERNAL | | | l Type | | | LAB | | + + + + + + | Segmented | 67 | % | EXTERNAL | | | Neutrophils | | | LAB | | | Manual | | | | | + + + + + + | % Bands | 6 | % | EXTERNAL | | | | | | LAB | | + + + + + + | Lymphocytes | 16 | % | EXTERNAL | | | Manual | | | LAB | | + + + + + + | Monocytes | 9 | % | EXTERNAL | | | Manual | | | LAB | | + + + + + + | Eosinophils | 2 | % | EXTERNAL | | | Manual | | | LAB | | + + + + + + | Absolute | 6.33 | 1.90 - 7.40 | EXTERNAL | | | Neutrophils | | K/uL | LAB | | + + + + + + | Bands | 0.57 (H) | 0.00 - 0.20 | EXTERNAL | | | Manual | | K/uL | LAB | | + + + + + + | Absolute | 1.51 | 1.00 - 3.90 | EXTERNAL | | | Lymphocytes | | K/uL | LAB | | + + + + + + | Absolute | 0.85 (H) | 0.00 - 0.80 | EXTERNAL | | | Monocytes | | K/uL | LAB | | + + + + + + | Absolute | 0.19 | 0.00 - 0.50 | EXTERNAL | | | Eosinophils | | K/uL | LAB | | + + + + + + | RBC | RBC AND PLT MORPHOLOGY | | EXTERNAL | | | Morphology | APPEAR NORMALComment: | | LAB | | | | Testing performed at | | | | | | [facility], [address] [place] [address] | | | | | | [place], [place] | | | | | | [address] | | | | + + + + + + + + | Specimen | + + | Blood specimen | | (specimen) | + + + +---------+ + + | Performing | Address | City/State/Zipcode | Phone Number | | Organization | | | | + +---------+ + + | EXTERNAL LAB | | | | + +---------+ + + Phosphorus (01/19/2017 3:55 AM PDT) + + + + + + | Component | Value | Ref Range | Performed | Pathologist | | | | | At | Signature | + + + + + + | PHOSPHORUS | 2.2 (L)Comment: Testing | 2.3 - 4.8 mg/dL | EXTERNAL | | | | performed at [facility], [address] | | LAB | | | | [address], | | | | | | [place] [address] | | | | + + + + + + + + | Specimen | + + | Blood specimen | | (specimen) | + + + +---------+ + + | Performing | Address | City/State/Zipcode | Phone Number | | Organization | | | | + +---------+ + + | EXTERNAL LAB | | | | + +---------+ + + Magnesium (01/19/2017 3:55 AM PDT) + + + + + + | Component | Value | Ref Range | Performed | Pathologist | | | | | At | Signature | + + + + + + | Magnesium | 2.1Comment: Testing | 1.7 - 2.4 mg/dL | EXTERNAL | | | | performed at [facility], [address] | | LAB | | | | [address], | | | | | | [place] [address] | | | | + + + [...] + +---------+ + + Basic Metabolic Panel (01/19/2017 3:55 AM PDT) + + + + + + | Component | Value | Ref Range | Performed | Pathologist | | | | | At | Signature | + + + + + + | Na | 139 | 135 - 145 | EXTERNAL | | | | | mmol/L | LAB | | + + + + + + | K | 3.4 (L) | 3.5 - 4.9 | EXTERNAL | | | | | mmol/L | LAB | | + + + + + + | Cl | 103 | 99 - 109 mmol/L | EXTERNAL | | | | | | LAB | | + + + + + + | CO2 | 25 | 23 - 32 mmol/L | EXTERNAL | | | | | | LAB | | + + + + + + | Anion Gap | 14 | 5 - 20 mmol/L | EXTERNAL | | | | | | LAB | | + + + + + + | Glucose, | 144 (H) | 65 - 99 mg/dL | EXTERNAL | | | Fasting | | | LAB | | + + + + + + | BUN | 22 | 8 - 25 mg/dL | EXTERNAL | | | | | | LAB | | + + + + + + | Creatinine | 0.7 | 0.70 - 1.30 | EXTERNAL | | | | | mg/dL | LAB | | + + + + + + | BUN/Creatin | 31 | | EXTERNAL | | | ine Ratio | | | LAB | | + + + + + + | Calcium | 7.7 (L) | 8.5 - 10.5 | EXTERNAL | [...] BY | | | | | | 1.210.Testing performed | | | | | | at [facility], [address] | | | | | | [address], | | | | | | [place] [address] | | | | + + + + + + + + | Specimen | + + | Blood specimen | | (specimen) | + + + +---------+ + + | Performing | Address | City/State/Zipcode | Phone Number | | Organization | | | | + +---------+ + + | EXTERNAL LAB | | | | + +---------+ + + POC Glucose (01/18/2017 9:35 PM PDT) + + + + + + | Component | Value | Ref Range | Performed | Pathologist | | | | | At | Signature | + + + + + + | Glucose, | 121 (H)Comment: Testing | 65 - 99 mg/dL | EXTERNAL | | | Fingerstick | performed at [facility];[address] | | LAB | | | | [address];[place], [place] | | | | | | [address] | | | | + + + + + + + + | Specimen | + + | | + + + +---------+ + + | Performing | Address | City/State/Zipcode | Phone Number | | Organization | | | | + +---------+ + + | EXTERNAL LAB | | | | + +---------+ + + Potassium (01/18/2017 5:07 PM PDT) + + + + + + | Component | Value | Ref Range | Performed | Pathologist | | | | | At | Signature | + + + + + + | K | 3.7Comment: Testing | 3.5 - 4.9 | EXTERNAL | | | | performed at [facility];[address] | mmol/L | LAB | | | | [address];[place], [place] | | | | | | [address] | | | | + + + + + + + + | Specimen | + + | Blood specimen | | (specimen) | + + + +---------+ + + | Performing | Address | City/State/Zipcode | Phone Number | | Organization | | | | + +---------+ + + | EXTERNAL LAB | | | | + +---------+ + + Phosphorus (01/18/2017 5:07 PM PDT) + + + + + + | Component | Value | Ref Range | Performed | Pathologist | | | | | At | Signature | + + + + + + | PHOSPHORUS | 1.6 (L)Comment: Testing | 2.3 - 4.8 mg/dL | EXTERNAL | | | | performed at [facility];[address] | | LAB | | | | [address];[place], [place] | | | | | | [address] | | | | + + + + + + + + | Specimen | + + | Blood specimen | | (specimen) | + + + +---------+ + + | Performing | Address | City/State/Zipcode | Phone Number | | Organization | | | | + +---------+ + + | EXTERNAL LAB | | | | + +---------+ + + Magnesium (01/18/2017 5:07 PM PDT) + + + + + + | Component | Value | Ref Range | Performed | Pathologist | | | | | At | Signature | + + + + + + | Magnesium | 2.2Comment: Testing | 1.7 - 2.4 mg/dL | EXTERNAL | | | | performed at [facility];[address] | | LAB | | | | [address];[place] | | | | | | [address] | | | | + + + + + + + + | Specimen | + + | Blood specimen | | (specimen) | + + + +---------+ + + | Performing | Address | City/State/Zipcode | Phone Number | | Organization | | | | + +---------+ + + | EXTERNAL LAB | | | | + +---------+ + + POC Glucose (01/18/2017 5:04 PM PDT) + + + + + + | Component | Value | Ref Range | Performed | Pathologist | | | | | At | Signature | + + + + + + | Glucose, | 178 (H)Comment: Testing | 65 - 99 mg/dL | EXTERNAL | | | Fingerstick | performed at [facility];[address] | | LAB | | | | [address];[place], [place] | | | | | | [address] | | | | + + + + + + + + | Specimen | + + | | + + + +---------+ + + | Performing | Address | City/State/Zipcode | Phone Number | | Organization | | | | + +---------+ + + | EXTERNAL LAB | | | | + +---------+ + + POC Glucose (01/18/2017 9:27 AM PDT) + + + + + + | Component | Value | Ref Range | Performed | Pathologist | | | | | At | Signature | + + + + + + | Glucose, | 152 (H)Comment: Testing | 65 - 99 mg/dL | EXTERNAL | | | Fingerstick | performed at [facility];[address] | | LAB | | | | [address];[place] | | | | | | [address] | | | | + + + + + + + + | Specimen | + + | | + + + +---------+ + + | Performing | Address | City/State/Zipcode | Phone Number | | Organization | | | | + +---------+ + + | EXTERNAL LAB | | | | + +---------+ + + Lactic Acid (01/18/2017 9:22 AM PDT) + + + + + + | Component | Value | Ref Range | Performed | Pathologist | | | | | At | Signature | + + + + + + | Lactate | 1.0Comment: Testing | 0.4 - 2.0 | EXTERNAL | | | | performed at [facility];[address] | mmol/L | LAB | | | | [address];[place], [place] | | | | | | [address] | | | | + + + + + + + + | Specimen | + + | | + + + +---------+ + + | Performing | Address | City/State/Zipcode | Phone Number | | Organization | | | | + +---------+ + + | EXTERNAL LAB | | | | + +---------+ + + Procalcitonin (01/18/2017 9:22 AM PDT) + + + + + + | Component | Value | Ref Range | Performed | Pathologist | | | | | At | Signature | + + + + + + | PROCALCITON | 0.11Comment: | ng/mL | EXTERNAL | | | IN | INTERPRETIVE | | LAB | | | | INFORMATION: | | | | | | PROCALCITONIN PCT <= | | | | | | 0.5 ng/mL: Low risk | | | | | | for progression to | | | | | | severe systemic | | | | | | bacterial infection | | | | | | (severe sepsis/septic | | | | | | shock). Does not | | | | | | exclude an infection, | | | | | | because localized | | | | | | infections may be | | | | | | associated with such low | | | | | | levels. If PCT is | | | | | | measured very early | | | | | | after bacterial | | | | | | challenge (usually <6 | | | | | | hours), results may | | | | | | still be low and | | | | | | should re-assess PCT | | | | | | 6-24 hours later. PCT | | | | | | >0.5 and <= 2 ng/mL: | | | | | | Moderate risk for | | | | | | progression to severe | | | | | | systemic infection | | | | | | (severe sepsis/septic | | | | | | shock). Other | | | | | | conditions are known | | | | | | to elevate PCT, patient | | | | | | should be closely | | | | | | monitored both | | | | | | clinically and by | | | | | | re-assessing PCT | | | | | | within 6-24 hours. PCT > | | | | | | 2 ng/mL: High | | | | | | likelihood for | | | | | | progression to severe | | | | | | systemic bacterial | | | | | | infection (severe | | | | | | sepsis/septic shock). | | | | | | PCT >= 10 ng/mL: | | | | | | High likelihood of | | | | | | severe sepsis or septic | | | | | | shock.Testing performed | | | | | | at [facility];[address] [place] [address] | | | | | | [facility];[place] [address] | | | | + + + + + + + + | Specimen | + + | | + + + +---------+ + + | Performing | Address | City/State/Zipcode | Phone Number | | Organization | | | | + +---------+ + + | EXTERNAL LAB | | | | + +---------+ + + POC Glucose (01/18/2017 6:19 AM PDT) + + + + + + | Component | Value | Ref Range | Performed | Pathologist | | | | | At | Signature | + + + + + + | Glucose, | 127 (H)Comment: Testing | 65 - 99 mg/dL | EXTERNAL | | | Fingerstick | performed at [facility];[address] | | LAB | | | | [address];[place] | | | | | | [address] | | | | + + + + + + + + | Specimen | + + | | + + + +---------+ + + | Performing | Address | City/State/Zipcode | Phone Number | | Organization | | | | + +---------+ + + | EXTERNAL LAB | | | | + +---------+ + + XR Katalina HOUSE (01/18/2017 6:06 AM PDT) + + | Specimen | + + | | + + + + + | Impressions | Performed At | + + + | 1. Nasogastric tube tip is suboptimally visualized, but appears to | | | be stable in position. 2. Subsegmental atelectasis in the left | | | lung base. | | | AM | | + + + + + + | Narrative | Performed At | + + + | JOSE RAFAEL WALKER 1950 XR ABDOMEN 1 VIEW 01/18/2017 6:06 AM | | | INDICATION: Syncope and collapse, small bowel obstruction | | | COMPARISON: CT abdomen 01/17/2017 TECHNIQUE: Abdominal series, 1 | | | view, single AP view of the abdomen FINDINGS: Examination | | | injected by patient body habitus. Tip of the nasogastric tube is below | | | left hemidiaphragm and is difficult to visualize, but appears to be | | | stable in position. Subsegmental atelectasis noted in the left lung | | | base. | | + + + + + | Procedure Note | + + | Vamsi Guillaume Conversion - 04/05/2019 11:44 PM PDT JOSE RAFAEL Vega COPAKE1950XR ABDOMEN 1 | | VIEW01/18/2017 6:06 AM INDICATION: Syncope and collapse, small bowel obstruction | | COMPARISON: CT abdomen 01/17/2017 TECHNIQUE: Abdominal series, 1 view, single AP view of | | the abdomen FINDINGS: Examination injected by patient body habitus. Tip of the | | nasogastric tube is below left hemidiaphragm and is difficult to visualize, but appears | | to be stable in position. Subsegmental atelectasis noted in the left lung base. | | IMPRESSION: 1. Nasogastric tube tip is suboptimally visualized, but appears to be | | stable in position.2. Subsegmental atelectasis in the left lung base. Electronically | | signed by Raf Donnelly on 01/18/2017 7:24 AM | |TECHNIQUE: Abdominal series, 1 view, single AP view of the abdomen | | | |FINDINGS: Examination injected by patient body habitus. Tip of the nasogastric tube is bel ow left hemidiaphragm and is difficult to visualize, but appears to be stable in position. S ubsegmental atelectasis noted in the left lung base. | | | |IMPRESSION: | |1. Nasogastric tube tip is suboptimally visualized, but appears to be stable in position. | |2. Subsegmental atelectasis in the left lung base. | | | | | + + TSH with Reflex (01/18/2017 4:25 AM PDT) + + + + + + | Component | Value | Ref Range | Performed | Pathologist | | | | | At | Signature | + + + + + + | TSH | 1.78Comment: Testing | 0.45 - 5.10 | EXTERNAL | | | | performed at [facility], [address] | uIU/mL | LAB | | | | [address], | | | | | | [place] [address] | | | | + + + + + + + + | Specimen | + + | | + + + +---------+ + + | Performing | Address | City/State/Zipcode | Phone Number | | Organization | | | | + +---------+ + + | EXTERNAL LAB | | | | + +---------+ + + Protime INR (01/18/2017 4:25 AM PDT) + + + + + + | Component | Value | Ref Range | Performed | Pathologist | | | | | At | Signature | + + + + + + | INR | 1.1Comment: REFERENCE | | EXTERNAL | | | | RANGE:0.9 - 1.2 | | LAB | | | | NON-ANTICOAGULATED2.0 | | | | | | - 3.0 ALL OTHER | | | | | | THERAPEUTIC | | | | | | INDICATIONS2.5 - 3.5 | | | | | | MECHANICAL HEART VALVES, | | | | | | RECURRENT OR SYSTEMIC | | | | | | EMBOLISMTesting | | | | | | performed at [facility];[address] | | | | | | [address] [facility];[place], [place] | | | | | | [address] | | | | + + + [...] + +---------+ + + External Lab: CBC (01/18/2017 4:25 AM PDT) + + + + + + | Component | Value | Ref Range | Performed | Pathologist | | | | | At | Signature | + + + + + + | WBC | 10.34 | 3.80 - 11.00 | EXTERNAL | | | | | K/uL | LAB | | + + + + + + | RED CELL | 3.81 (L) | 4.20 - 5.70 | EXTERNAL | | | COUNT | | M/uL | LAB | | + + + + + + | Hgb | 11.2 (L) | 13.2 - 17.0 | EXTERNAL | | | | | g/dL | LAB | | + + + + + + | Hematocrit, | 32.1 (L) | 39.0 - 50.0 % | EXTERNAL | | | POC | | | LAB | | + + + + + + | MCV | 84.3 | 80.0 - 100.0 fl | EXTERNAL | | | | | | LAB | | + + + + + + | MCH | 29.5 | 27.0 - 34.0 pg | EXTERNAL | | | | | | LAB | | + + + + + + | MCHC | 34.9 | 32.0 - 35.5 | EXTERNAL | | | | | g/dL | LAB | | + + + + + + | RDW-CV | 44.6 | 37 - 53 fl | EXTERNAL | | | | | | LAB | | + + + + + + | Platelet | 264 | 150 - 400 K/uL | EXTERNAL | | | Count | | | LAB | | | Plasma | | | | | + + + + + + | MPV | 7.6 | fl | EXTERNAL | | | | | | LAB | | + + + + + + | Differentia | MANUAL | | EXTERNAL | | | l Type | | | LAB | | + + + + + + | Segmented | 64 | % | EXTERNAL | | | Neutrophils | | | LAB | | | Manual | | | | | + + + + + + | % Bands | 19 | % | EXTERNAL | | | | | | LAB | | + + + + + + | Lymphocytes | 8 | % | EXTERNAL | | | Manual | | | LAB | | + + + + + + | Monocytes | 9 | % | EXTERNAL | | | Manual | | | LAB | | + + + + + + | Absolute | 6.62 | 1.90 - 7.40 | EXTERNAL | | | Neutrophils | | K/uL | LAB | | + + + + + + | Bands | 1.96 (H) | 0.00 - 0.20 | EXTERNAL | | | Manual | | K/uL | LAB | | + + + + + + | Absolute | 0.83 (L) | 1.00 - 3.90 | EXTERNAL | | | Lymphocytes | | K/uL | LAB | | + + + + + + | Absolute | 0.93 (H) | 0.00 - 0.80 | EXTERNAL | | | Monocytes | | K/uL | LAB | | + + + + + + | Platelet | ADEQUATE | | EXTERNAL | | | Estimate | | | LAB | | + + + + + + | RBC | RBC AND PLT MORPHOLOGY | | EXTERNAL | | | Morphology | APPEAR NORMALComment: | | LAB | | | | Testing performed at | | | | | | [facility];[address] [place] [address] | | | | | | [address];[place] [address] | | | | + + + + + + + + | Specimen | + + | Blood specimen | | (specimen) | + + + +---------+ + + | Performing | Address | City/State/Zipcode | Phone Number | | Organization | | | | + +---------+ + + | EXTERNAL LAB | | | | + +---------+ + + Phosphorus (01/18/2017 4:25 AM PDT) + + + + + + | Component | Value | Ref Range | Performed | Pathologist | | | | | At | Signature | + + + + + + | PHOSPHORUS | 1.5 (L)Comment: Testing | 2.3 - 4.8 mg/dL | EXTERNAL | | | | performed at [facility] | | LAB | | | | [address] [facility];[place], [place] | | | | | | [address] | | | | + + + + + + + + | Specimen | + + | Blood specimen | | (specimen) | + + + +---------+ + + | Performing | Address | City/State/Zipcode | Phone Number | | Organization | | | | + +---------+ + + | EXTERNAL LAB | | | | + +---------+ + + Magnesium (01/18/2017 4:25 AM PDT) + + + + + + | Component | Value | Ref Range | Performed | Pathologist | | | | | At | Signature | + + + + + + | Magnesium | 2.5 (H)Comment: Testing | 1.7 - 2.4 mg/dL | EXTERNAL | | | | performed at [facility];[address] | | LAB | | | | [address];[place] | | | | | | [address] | | | | + + + [...] + +---------+ + + Basic Metabolic Panel (01/18/2017 4:25 AM PDT) + + + + + + | Component | Value | Ref Range | Performed | Pathologist | | | | | At | Signature | + + + + + + | Na | 132 (L) | 135 - 145 | EXTERNAL | | | | | mmol/L | LAB | | + + + + + + | K | 3.4 (L) | 3.5 - 4.9 | EXTERNAL | | | | | mmol/L | LAB | | + + + + + + | Cl | 95 (L) | 99 - 109 mmol/L | EXTERNAL | | | | | | LAB | | + + + + + + | CO2 | 28 | 23 - 32 mmol/L | EXTERNAL | | | | | | LAB | | + + + + + + | Anion Gap | 13 | 5 - 20 mmol/L | EXTERNAL | | | | | | LAB | | + + + + + + | Glucose, | 118 (H) | 65 - 99 mg/dL | EXTERNAL | | | Fasting | | | LAB | | + + + + + + | BUN | 43 (H) | 8 - 25 mg/dL | EXTERNAL | | | | | | LAB | | + + + + + + | Creatinine | 0.87 | 0.70 - 1.30 | EXTERNAL | | | | | mg/dL | LAB | | + + + + + + | BUN/Creatin | 49 | | EXTERNAL | | | ine Ratio | | | LAB | | + + + + + + | Calcium | 8.1 (L) | 8.5 - 10.5 | EXTERNAL | [...] BY | | | | | | 1.210.Testing performed | | | | | | at [facility];[address] [place] [address] | | | | | | Blvd;[place] [address] | | | | + + + + + + + + | Specimen | + + | Blood specimen | | (specimen) | + + + +---------+ + + | Performing | Address | City/State/Zipcode | Phone Number | | Organization | | | | + +---------+ + + | EXTERNAL LAB | | | | + +---------+ + + POC Glucose (01/17/2017 10:05 PM PDT) + + + + + + | Component | Value | Ref Range | Performed | Pathologist | | | | | At | Signature | + + + + + + | Glucose, | 124 (H)Comment: Testing | 65 - 99 mg/dL | EXTERNAL | | | Fingerstick | performed at [facility];[address] | | LAB | | | | [address];[place] | | | | | | [address] | | | | + + + + + + + + | Specimen | + + | | + + + +---------+ + + | Performing | Address | City/State/Zipcode | Phone Number | | Organization | | | | + +---------+ + + | EXTERNAL LAB | | | | + +---------+ + + POC Glucose (01/17/2017 4:26 PM PDT) + + + + + + | Component | Value | Ref Range | Performed | Pathologist | | | | | At | Signature | + + + + + + | Glucose, | 140 (H)Comment: Testing | 65 - 99 mg/dL | EXTERNAL | | | Fingerstick | performed at [facility];[address] | | LAB | | | | [address];[place] | | | | | | [address] | | | | + + + + + + + + | Specimen | + + | | + + + +---------+ + + | Performing | Address | City/State/Zipcode | Phone Number | | Organization | | | | + +---------+ + + | EXTERNAL LAB | | | | + +---------+ + + POC Glucose (01/17/2017 11:32 AM PDT) + + + + + + | Component | Value | Ref Range | Performed | Pathologist | | | | | At | Signature | + + + + + + | Glucose, | 171 (H)Comment: Testing | 65 - 99 mg/dL | EXTERNAL | | | Fingerstick | performed at [facility];[address] | | LAB | | | | [address];[place], [place] | | | | | | [address] | | | | + + + + + + + + | Specimen | + + | | + + + +---------+ + + | Performing | Address | City/State/Zipcode | Phone Number | | Organization | | | | + +---------+ + + | EXTERNAL LAB | | | | + +---------+ + + CT Abdomen Pelvis wo Contrast (01/17/2017 10:49 AM PDT) + + | Specimen | + + | | + + + + + | Impressions | Performed At | + + + | 1. Mid to distal small bowel obstruction, of unclear etiology. 2. | | | Nasogastric tube tip in the stomach. 3. Mild distention of the | | | urinary bladder. 4. Previous cholecystectomy. 5. Fatty liver. | | | 6. Mild atelectasis in the left lung base. | | + + + + + + | Narrative | Performed At | + + + | [facility] ABDOMEN PELVIS WO CONTRAST 01/17/2017 10:49 AM | | | HISTORY: Abdominal pain. TECHNIQUE: 5 mm axial sections were | | | obtained through the abdomen and pelvis without IV or oral contrast. | | | Dose reduction technique was performed using automated exposure | | | control or adjustment of the mA and/or kV according to patient size. | | | FINDINGS: No prior comparison. Evaluation is limited without | | | contrast. There is diffuse fatty infiltration of the liver. The | | | gallbladder appears surgically absent. The spleen is normal in size. | | | Nasogastric tube tip is in the stomach. No peripancreatic fluid or | | | edema. No hydronephrosis is seen in the kidneys. The abdominal aorta | | | is normal in diameter without aneurysm. There are multiple dilated | | | loops of small bowel within the midabdomen with a probable transition | | | point in the right lower quadrant, consistent with a mid to distal | | | small bowel obstruction. Etiology for the obstruction could not be | | | identified. 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 Urinary bladder appears | | | mildly distended. There is mild atelectasis in the left lung base. | | + + + + --+ | Procedure Note | + --+ | Markell, Rad Conversion - 04/05/2019 11:44 PM PDT [facility] ABDOMEN PELVIS WO | | CONTRAST01/17/2017 10:49 AM HISTORY:Abdominal pain. TECHNIQUE:5 mm axial sections were | | obtained through the abdomen and pelvis without IV or oral contrast. Dose reduction | | technique was performed using automated exposure control or adjustment of the mA and/or | | kV according to patient size. FINDINGS:No prior comparison. Evaluation is limited | | without contrast. There is diffuse fatty infiltration of the liver. The gallbladder | | appears surgically absent. The spleen is normal in size. Nasogastric tube tip is in the | | stomach. No peripancreatic fluid or edema. No hydronephrosis is seen in the kidneys. The | | abdominal aorta is normal in diameter without aneurysm. There are multiple dilated | | loops of small bowel within the midabdomen with a probable transition point in the right | | lower quadrant, consistent with a mid to distal small bowel obstruction. Etiology for | | the obstruction could not be identified. 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 Urinary bladder appears mildly | | distended. There is mild atelectasis in the left lung base. IMPRESSION: 1. Mid to | | distal small bowel obstruction, of unclear etiology.2. Nasogastric tube tip in the | | stomach.3. Mild distention of the urinary bladder.4. Previous cholecystectomy.5. | | Fatty liver.6. Mild atelectasis in the left lung base. | | | |Evaluation of the pelvis is severely limited due to artifact from bilateral hip replacement s. Urinary bladder appears mildly distended. There is mild atelectasis in the left lung base . | | | |IMPRESSION: | |1. Mid to distal small bowel obstruction, of unclear etiology. | |2. Nasogastric tube tip in the stomach. | |3. Mild distention of the urinary bladder. | |4. Previous cholecystectomy. | |5. Fatty liver. | |6. Mild atelectasis in the left lung base. | | | | | + --+ POC Glucose (01/17/2017 8:24 AM PDT) + + + + + + | Component | Value | Ref Range | Performed | Pathologist | | | | | At | Signature | + + + + + + | Glucose, | 145 (H)Comment: Testing | 65 - 99 mg/dL | EXTERNAL | | | Fingerstick | performed at [facility];[address] | | LAB | | | | [address];[place] | | | | | | [address] | | | | + + + + + + + + | Specimen | + + | | + + + +---------+ + + | Performing | Address | City/State/Zipcode | Phone Number | | Organization | | | | + +---------+ + + | EXTERNAL LAB | | | | + +---------+ + + XR Abdomen AP (01/17/2017 6:00 AM PDT) + + | Specimen | + + | | + + + + + | Impressions | Performed At | + + + | 1. Nasogastric tube tip in the stomach. | | + + + + + + | Narrative | Performed At | + + + | [facility]ALK[facility] XR ABDOMEN 1 VIEW 01/17/2017 6:00 AM HISTORY: | | | Nasogastric tube placement. TECHNIQUE: One view abdomen | | | FINDINGS: Compared with 01/09/2017 at 0159 hours. The nasogastric tube | | | tip is in the stomach. There is a prominent gas noted within the | | | transverse colon. | | + + + + + | Procedure Note | + + | Markell, Rad Conversion - 04/05/2019 11:44 PM PDT [facility]FA[facility] WALKERXR ABDOMEN 1 | | VIEW01/17/2017 6:00 AM HISTORY:Nasogastric tube placement. TECHNIQUE:One view abdomen | | FINDINGS:Compared with 01/09/2017 at 0159 hours. The nasogastric tube tip is in the | | stomach. There is a prominent gas noted within the transverse colon. IMPRESSION: 1. | | Nasogastric tube tip in the stomach. Electronically signed by Dutch Chen MD on | | 01/17/2017 7:07 AM | | | |TECHNIQUE: | |One view abdomen | | | |FINDINGS: | |Compared with 01/09/2017 at 0159 hours. The nasogastric tube tip is in the stomach. There is a prominent gas noted within the transverse colon. | | | |IMPRESSION: | |1. Nasogastric tube tip in the stomach. | | | | | + + Lactic Acid (01/17/2017 3:29 AM PDT) + + + + + + | Component | Value | Ref Range | Performed | Pathologist | | | | | At | Signature | + + + + + + | Lactate | 1.6Comment: Testing | 0.4 - 2.0 | EXTERNAL | | | | performed at [facility];[address] | mmol/L | LAB | | | | [address];[place], [place] | | | | | | [address] | | | | + + + + + + + + | Specimen | + + | Blood specimen | | (specimen) | + + + +---------+ + + | Performing | Address | City/State/Zipcode | Phone Number | | Organization | | | | + +---------+ + + | EXTERNAL LAB | | | | + +---------+ + + Protime INR (01/17/2017 3:28 AM PDT) + + + + + + | Component | Value | Ref Range | Performed | Pathologist | | | | | At | Signature | + + + + + + | INR | 1.1Comment: REFERENCE | | EXTERNAL | | | | RANGE:0.9 - 1.2 | | LAB | | | | NON-ANTICOAGULATED2.0 | | | | | | - 3.0 ALL OTHER | | | | | | THERAPEUTIC | | | | | | INDICATIONS2.5 - 3.5 | | | | | | MECHANICAL HEART VALVES, | | | | | | RECURRENT OR SYSTEMIC | | | | | | EMBOLISMTesting | | | | | | performed at [facility];[address] | | | | | | [address] [facility];[place], [place] | | | | | | [address] | | | | + + + [...] + +---------+ + + External Lab: CBC (01/17/2017 3:28 AM PDT) + + + + + + | Component | Value | Ref Range | Performed | Pathologist | | | | | At | Signature | + + + + + + | WBC | 13.35 (H) | 3.80 - 11.00 | EXTERNAL | | | | | K/uL | LAB | | + + + + + + | RED CELL | 4.02 (L) | 4.20 - 5.70 | EXTERNAL | | | COUNT | | M/uL | LAB | | + + + + + + | Hgb | 11.8 (L) | 13.2 - 17.0 | EXTERNAL | | | | | g/dL | LAB | | + + + + + + | Hematocrit, | 33.9 (L) | 39.0 - 50.0 % | EXTERNAL | | | POC | | | LAB | | + + + + + + | MCV | 84.4 | 80.0 - 100.0 fl | EXTERNAL | | | | | | LAB | | + + + + + + | MCH | 29.5 | 27.0 - 34.0 pg | EXTERNAL | | | | | | LAB | | + + + + + + | MCHC | 34.9 | 32.0 - 35.5 | EXTERNAL | | | | | g/dL | LAB | | + + + + + + | RDW-CV | 45.1 | 37 - 53 fl | EXTERNAL | | | | | | LAB | | + + + + + + | Platelet | 275 | 150 - 400 K/uL | EXTERNAL | | | Count | | | LAB | | | Plasma | | | | | + + + + + + | MPV | 8.2 | fl | EXTERNAL | | | | | | LAB | | + + + + + + | Differentia | MANUAL | | EXTERNAL | | | l Type | | | LAB | | + + + + + + | Segmented | 64 | % | EXTERNAL | | | Neutrophils | | | LAB | | | Manual | | | | | + + + + + + | % Bands | 18 | % | EXTERNAL | | | | | | LAB | | + + + + + + | % | 1 | % | EXTERNAL | | | Metamyelocy | | | LAB | | | lang | | | | | + + + + + + | Lymphocytes | 9 | % | EXTERNAL | | | Manual | | | LAB | | + + + + + + | Reactive | 1 | % | EXTERNAL | | | Lymphocytes | | | LAB | | + + + + + + | Monocytes | 7 | % | EXTERNAL | | | Manual | | | LAB | | + + + + + + | Absolute | 8.56 (H) | 1.90 - 7.40 | EXTERNAL | | | Neutrophils | | K/uL | LAB | | + + + + + + | Bands | 2.40 (H) | 0.00 - 0.20 | EXTERNAL | | | Manual | | K/uL | LAB | | + + + + + + | Absolute | 0.13 (H) | K/uL | EXTERNAL | | | Metamyelocy | | | LAB | | | lang | | | | | + + + + + + | Absolute | 1.20 | 1.00 - 3.90 | EXTERNAL | | | Lymphocytes | | K/uL | LAB | | + + + + + + | Reactive | 0.13 | K/uL | EXTERNAL | | | Lymphocytes | | | LAB | | + + + + + + | Absolute | 0.93 (H) | 0.00 - 0.80 | EXTERNAL | | | Monocytes | | K/uL | LAB | | + + + + + + | RBC | RBC AND PLT MORPHOLOGY | | EXTERNAL | | | Morphology | APPEAR NORMALComment: | | LAB | | | | Testing performed at | | | | | | [facility], [address] | | | | | | [place] | | | | | | [address] | | | | + + + + + + + + | Specimen | + + | Blood specimen | | (specimen) | + + + +---------+ + + | Performing | Address | City/State/Zipcode | Phone Number | | Organization | | | | + +---------+ + + | EXTERNAL LAB | | | | + +---------+ + + Phosphorus (01/17/2017 3:28 AM PDT) + + + + + + | Component | Value | Ref Range | Performed | Pathologist | | | | | At | Signature | + + + + + + | PHOSPHORUS | 3.0Comment: Testing | 2.3 - 4.8 mg/dL | EXTERNAL | | | | performed at [facility], [address] | | LAB | | | | [address], | | | | | | [place] [address] | | | | + + + + + + + + | Specimen | + + | Blood specimen | | (specimen) | + + + +---------+ + + | Performing | Address | City/State/Zipcode | Phone Number | | Organization | | | | + +---------+ + + | EXTERNAL LAB | | | | + +---------+ + + Magnesium (01/17/2017 3:28 AM PDT) + + + + + + | Component | Value | Ref Range | Performed | Pathologist | | | | | At | Signature | + + + + + + | Magnesium | 2.1Comment: Testing | 1.7 - 2.4 mg/dL | EXTERNAL | | | | performed at [facility], [address] | | LAB | | | | [place] [place], | | | | | | [place] [address] | | | | + + + [...] + +---------+ + + Basic Metabolic Panel (01/17/2017 3:28 AM PDT) + + + + + + | Component | Value | Ref Range | Performed | Pathologist | | | | | At | Signature | + + + + + + | Na | 131 (L) | 135 - 145 | EXTERNAL | | | | | mmol/L | LAB | | + + + + + + | K | 3.7 | 3.5 - 4.9 | EXTERNAL | | | | | mmol/L | LAB | | + + + + + + | Cl | 87 (L) | 99 - 109 mmol/L | EXTERNAL | | | | | | LAB | | + + + + + + | CO2 | 31 | 23 - 32 mmol/L | EXTERNAL | | | | | | LAB | | + + + + + + | Anion Gap | 17 | 5 - 20 mmol/L | EXTERNAL | | | | | | LAB | | + + + + + + | Glucose, | 118 (H) | 65 - 99 mg/dL | EXTERNAL | | | Fasting | | | LAB | | + + + + + + | BUN | 47 (H) | 8 - 25 mg/dL | EXTERNAL | | | | | | LAB | | + + + + + + | Creatinine | 1.0 | 0.70 - 1.30 | EXTERNAL | | | | | mg/dL | LAB | | + + + + + + | BUN/Creatin | 47 | | EXTERNAL | | | ine Ratio | | | LAB | | + + + + + + | Calcium | 9.0 | 8.5 - 10.5 | EXTERNAL | [...] BY | | | | | | 1.210.Testing performed | | | | | | at [facility], [address] | | | | | | [facility], | | | | | | [place] [address] | | | | + + + + + + + + | Specimen | + + | Blood specimen | | (specimen) | + + + +---------+ + + | Performing | Address | City/State/Zipcode | Phone Number | | Organization | | | | + +---------+ + + | EXTERNAL LAB | | | | + +---------+ + + XR Abdomen AP (01/17/2017 2:41 AM PDT) + + | Specimen | + + | | + + + + + | Impressions | Performed At | + + + | Cannot exclude small bowel obstruction on this suboptimal supine | | | view. If there is clinical concern for obstruction, consider CT. | | | AQUILINO Electronically signed by Williams Cooper MD on Jan 17 2017 | | | 3:17AM Referring Provider Line: [phone] ID: [id number] | | + + + + + + | Narrative | Performed At | + + + | EXAM: ABDOMEN RADIOGRAPHY EXAM DATE: 01/17/2017 02:41 AM. | | | CLINICAL HISTORY: Abdominal pain. COMPARISON: 01/16/2017. | | | TECHNIQUE: 1 view. FINDINGS: Bowel Gas Pattern: Possible dilated | | | small bowel in the lower abdomen. Other: Previous bilateral hip | | | replacements. | | + + + + + | Procedure Note | + + | Markell Vamsi Conversion - 04/05/2019 11:44 PM PDT EXAM:ABDOMEN RADIOGRAPHY EXAM DATE: | | 01/17/2017 02:41 AM. CLINICAL HISTORY: Abdominal pain. COMPARISON: 01/16/2017. TECHNIQUE: | | 1 view. FINDINGS:Bowel Gas Pattern: Possible dilated small bowel in the lower abdomen. | | Other: Previous bilateral hip replacements. IMPRESSION: Cannot exclude small bowel | | obstruction on this suboptimal supine view. If there is clinical concern for | | obstruction, consider CT. RADIA Electronically signed by Williams Cooper MD on January 17 | | 2016 3:17AM Referring Provider Line: [phone] ID: [id number] | |COMPARISON: 01/16/2017. | | | |TECHNIQUE: 1 view. | | | |FINDINGS: | |Bowel Gas Pattern: Possible dilated small bowel in the lower abdomen. | | | |Other: Previous bilateral hip replacements. | | | |IMPRESSION: | |Cannot exclude small bowel obstruction on this suboptimal supine view. If there is clinical concern for obstruction, consider CT. | | | |RADIA | | | | Electronically signed by Williams Cooper MD on Jan 17 2017 3:17AM Referring Provider Taylor e: [phone] ID: [id number] | + + POC Glucose (01/16/2017 9:36 PM PDT) + + + + + + | Component | Value | Ref Range | Performed | Pathologist | | | | | At | Signature | + + + + + + | Glucose, | 94Comment: Testing | 65 - 99 mg/dL | EXTERNAL | | | Fingerstick | performed at [facility];[address] | | LAB | | | | [address];[place], [place] | | | | | | [address] | | | | + + + + + + + + | Specimen | + + | | + + + +---------+ + + | Performing | Address | City/State/Zipcode | Phone Number | | Organization | | | | + +---------+ + + | EXTERNAL LAB | | | | + +---------+ + + Potassium (01/16/2017 5:48 PM PDT) + + + + + + | Component | Value | Ref Range | Performed | Pathologist | | | | | At | Signature | + + + + + + | K | 3.8Comment: MODERATE | 3.5 - 4.9 | EXTERNAL | | | | HEMOLYSISTesting | mmol/L | LAB | | | | performed at [facility] | | | | | | [place] [address];[place] | | | | | | [address] | | | | + + + + + + + + | Specimen | + + | Blood specimen | | (specimen) | + + + +---------+ + + | Performing | Address | City/State/Zipcode | Phone Number | | Organization | | | | + +---------+ + + | EXTERNAL LAB | | | | + +---------+ + + POC Glucose (01/16/2017 4:39 PM PDT) + + + + + + | Component | Value | Ref Range | Performed | Pathologist | | | | | At | Signature | + + + + + + | Glucose, | 88Comment: Testing | 65 - 99 mg/dL | EXTERNAL | | | Fingerstick | performed at [facility];[address] | | LAB | | | | [address];[place], [place] | | | | | | [address] | | | | + + + + + + + + | Specimen | + + | | + + + +---------+ + + | Performing | Address | City/State/Zipcode | Phone Number | | Organization | | | | + +---------+ + + | EXTERNAL LAB | | | | + +---------+ + + POC Glucose (01/16/2017 11:33 AM PDT) + + + + + + | Component | Value | Ref Range | Performed | Pathologist | | | | | At | Signature | + + + + + + | Glucose, | 106 (H)Comment: Testing | 65 - 99 mg/dL | EXTERNAL | | | Fingerstick | performed at [facility] | | LAB | | | | [place] [address];[place] | | | | | | [address] | | | | + + + + + + + + | Specimen | + + | | + + + +---------+ + + | Performing | Address | City/State/Zipcode | Phone Number | | Organization | | | | + +---------+ + + | EXTERNAL LAB | | | | + +---------+ + + Potassium (01/16/2017 8:45 AM PDT) + + + + + + | Component | Value | Ref Range | Performed | Pathologist | | | | | At | Signature | + + + + + + | K | 3.2 (L)Comment: Testing | 3.5 - 4.9 | EXTERNAL | | | | performed at [facility];[address] | mmol/L | LAB | | | | [address];[place], [place] | | | | | | [address] | | | | + + + + + + + + | Specimen | + + | Blood specimen | | (specimen) | + + + +---------+ + + | Performing | Address | City/State/Zipcode | Phone Number | | Organization | | | | + +---------+ + + | EXTERNAL LAB | | | | + +---------+ + + POC Glucose (01/16/2017 5:35 AM PDT) + + + + + + | Component | Value | Ref Range | Performed | Pathologist | | | | | At | Signature | + + + + + + | Glucose, | 125 (H)Comment: Testing | 65 - 99 mg/dL | EXTERNAL | | | Fingerstick | performed at [facility];[address] | | LAB | | | | [address];[place] | | | | | | [address] | | | | + + + + + + + + | Specimen | + + | | + + + +---------+ + + | Performing | Address | City/State/Zipcode | Phone Number | | Organization | | | | + +---------+ + + | EXTERNAL LAB | | | | + +---------+ + + Protime INR (01/16/2017 4:35 AM PDT) + + + + + + | Component | Value | Ref Range | Performed | Pathologist | | | | | At | Signature | + + + + + + | INR | 1.1Comment: REFERENCE | | EXTERNAL | | | | RANGE:0.9 - 1.2 | | LAB | | | | NON-ANTICOAGULATED2.0 | | | | | | - 3.0 ALL OTHER | | | | | | THERAPEUTIC | | | | | | INDICATIONS2.5 - 3.5 | | | | | | MECHANICAL HEART VALVES, | | | | | | RECURRENT OR SYSTEMIC | | | | | | EMBOLISMTesting | | | | | | performed at [facility];[address] | | | | | | [facility];[place], [place] | | | | | | [address] | | | | + + + [...] + +---------+ + + External Lab: CBC (01/16/2017 4:35 AM PDT) + + + + + + | Component | Value | Ref Range | Performed | Pathologist | | | | | At | Signature | + + + + + + | WBC | 11.72 (H) | 3.80 - 11.00 | EXTERNAL | | | | | K/uL | LAB | | + + + + + + | RED CELL | 3.94 (L) | 4.20 - 5.70 | EXTERNAL | | | COUNT | | M/uL | LAB | | + + + + + + | Hgb | 11.6 (L) | 13.2 - 17.0 | EXTERNAL | | | | | g/dL | LAB | | + + + + + + | Hematocrit, | 33.5 (L) | 39.0 - 50.0 % | EXTERNAL | | | POC | | | LAB | | + + + + + + | MCV | 85.0 | 80.0 - 100.0 fl | EXTERNAL | | | | | | LAB | | + + + + + + | MCH | 29.4 | 27.0 - 34.0 pg | EXTERNAL | | | | | | LAB | | + + + + + + | MCHC | 34.6 | 32.0 - 35.5 | EXTERNAL | | | | | g/dL | LAB | | + + + + + + | RDW-CV | 44.2 | 37 - 53 fl | EXTERNAL | | | | | | LAB | | + + + + + + | Platelet | 262 | 150 - 400 K/uL | EXTERNAL | | | Count | | | LAB | | | Plasma | | | | | + + + + + + | MPV | 7.9 | fl | EXTERNAL | | | | | | LAB | | + + + + + + | Differentia | AUTOMATED | | EXTERNAL | | | l Type | | | LAB | | + + + + + + | % Segmented | 82.46 | % | EXTERNAL | | | | | | LAB | | | Neutrophils | | | | | + + + + + + | % | 7.61 | % | EXTERNAL | | | Lymphocytes | | | LAB | | + + + + + + | % Monocytes | 8.41 | % | EXTERNAL | | | | | | LAB | | + + + + + + | % | 1.34 | % | EXTERNAL | | | Eosinophils | | | LAB | | + + + + + + | % Basophils | 0.18 | % | EXTERNAL | | | | | | LAB | | + + + + + + | Absolute | 9.67 (H) | 1.90 - 7.40 | EXTERNAL | | | Segmented | | K/uL | LAB | | | Neutrophils | | | | | + + + + + + | Absolute | 0.89 (L) | 1.00 - 3.90 | EXTERNAL | | | Lymphocytes | | K/uL | LAB | | + + + + + + | Absolute | 0.99 (H) | 0.00 - 0.80 | EXTERNAL | | | Monocytes | | K/uL | LAB | | + + + + + + | Absolute | 0.16 | 0.00 - 0.50 | EXTERNAL | | | Eosinophils | | K/uL | LAB | | + + + + + + | Absolute | 0.02Comment: Testing | 0.00 - 0.10 | EXTERNAL | | | Basophils | performed at [facility], [address] | K/uL | LAB | | | | [address], | | | | | | [place] [address] | | | | + + + + + + + + | Specimen | + + | Blood specimen | | (specimen) | + + + +---------+ + + | Performing | Address | City/State/Zipcode | Phone Number | | Organization | | | | + +---------+ + + | EXTERNAL LAB | | | | + +---------+ + + Phosphorus (01/16/2017 4:35 AM PDT) + + + + + + | Component | Value | Ref Range | Performed | Pathologist | | | | | At | Signature | + + + + + + | PHOSPHORUS | 3.2Comment: Testing | 2.3 - 4.8 mg/dL | EXTERNAL | | | | performed at [facility], [address] | | LAB | | | | [place], | | | | | | [place] [address] | | | | + + + + + + + + | Specimen | + + | Blood specimen | | (specimen) | + + + +---------+ + + | Performing | Address | City/State/Zipcode | Phone Number | | Organization | | | | + +---------+ + + | EXTERNAL LAB | | | | + +---------+ + + Magnesium (01/16/2017 4:35 AM PDT) + + + + + + | Component | Value | Ref Range | Performed | Pathologist | | | | | At | Signature | + + + + + + | Magnesium | 2.0Comment: Testing | 1.7 - 2.4 mg/dL | EXTERNAL | | | | performed at [facility], [address] | | LAB | | | | [address] [address], | | | | | | [place] [address] | | | | + + + [...] + +---------+ + + Basic Metabolic Panel (01/16/2017 4:35 AM PDT) + + + + + + | Component | Value | Ref Range | Performed | Pathologist | | | | | At | Signature | + + + + + + | Na | 130 (L) | 135 - 145 | EXTERNAL | | | | | mmol/L | LAB | | + + + + + + | K | 3.4 (L) | 3.5 - 4.9 | EXTERNAL | | | | | mmol/L | LAB | | + + + + + + | Cl | 91 (L) | 99 - 109 mmol/L | EXTERNAL | | | | | | LAB | | + + + + + + | CO2 | 27 | 23 - 32 mmol/L | EXTERNAL | | | | | | LAB | | + + + + + + | Anion Gap | 15 | 5 - 20 mmol/L | EXTERNAL | | | | | | LAB | | + + + + + + | Glucose, | 121 (H) | 65 - 99 mg/dL | EXTERNAL | | | Fasting | | | LAB | | + + + + + + | BUN | 51 (H) | 8 - 25 mg/dL | EXTERNAL | | | | | | LAB | | + + + + + + | Creatinine | 1.1 | 0.70 - 1.30 | EXTERNAL | | | | | mg/dL | LAB | | + + + + + + | BUN/Creatin | 46 | | EXTERNAL | | | ine Ratio | | | LAB | | + + + + + + | Calcium | 9.2 | 8.5 - 10.5 | EXTERNAL | [...] BY | | | | | | 1.210.Testing performed | | | | | | at [facility], [address] | | | | | | [facility], | | | | | | [place] [address] | | | | + + + + + + + + | Specimen | + + | Blood specimen | | (specimen) | + + + +---------+ + + | Performing | Address | City/State/Zipcode | Phone Number | | Organization | | | | + +---------+ + + | EXTERNAL LAB | | | | + +---------+ + + CT Cervical Spine wo Contrast (01/16/2017 3:35 AM PDT) + + | Specimen | + + | | + + + + + | Impressions | Performed At | + + + | 1. Stable spinal alignment, status post posterior spine fusion | | | from C3-T2 compared to the cervical spine CT from 01/12/2017. 2. | | | Ankylosing spondylitis. RADIA Electronically signed by | | | Yenifer Marie MD on Jan 16 2017 5:20AM Referring Provider | | | Line: [phone] ID: [id number] | | + + + + + + | Narrative | Performed At | + + + | EXAM: CT CERVICAL SPINE WITHOUT CONTRAST DATE: 01/16/2017 03:35 | | | AM HISTORY: Neck pain, trauma. COMPARISONS: Cervical spine CT | | | from 01/12/2017. TECHNIQUE: Thin-section axial images were | | | acquired of the cervical spine without contrast. Post-processing: | | | Coronal and sagittal reformats. Other: None. In accordance with CT | | | protocol optimization, one or more of the following dose reduction | | | techniques were utilized for this exam: automated exposure control, | | | adjustment of mA and/or KV based on patient size, or use of iterative | | | reconstructive technique. FINDINGS: Alignment: Spinal alignment | | | is unchanged. 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 | | | The fracture through the C6-C7 disk space extending to the bilateral | | | facet joints is stable in appearance. Posterior spinal fusion from | | | C3-T2 is unchanged in position. Of note, the right C7 screw continues | | | to traverse the superior aspect of its foramen and the right T1-T2 | | | pedicle screw also traverses its respective foramen. No interval | | | change in hardware alignment is seen. Interspace Levels/Facets: No | | | interval development of spinal canal or foraminal stenosis is | | | appreciated. Musculature: Postsurgical changes are noted in the | | | dorsal soft tissues from recent surgery. Other: A prominent left | | | thyroid lobe is again noted. The visualized lung apices are clear. | | + + + + + | Procedure Note | + + | Markell, Rad Conversion - 04/05/2019 11:44 PM PDT EXAM:CT CERVICAL SPINE WITHOUT CONTRAST | | DATE: 01/16/2017 03:35 AM HISTORY: Neck pain, trauma. COMPARISONS: Cervical spine CT | | from 01/12/2017. TECHNIQUE: Thin-section axial images were acquired of the cervical | | spine without contrast. Post-processing: Coronal and sagittal reformats. Other: None. In | | accordance with CT protocol optimization, one or more of the following dose reduction | | techniques were utilized for this exam: automated exposure control, adjustment of mA | | and/or KV based on patient size, or use of iterative reconstructive technique. | | FINDINGS:Alignment: Spinal alignment is unchanged. Bones: Diffuse ankylosis is again | | demonstrated from the craniocervical junction to the visualized upper thoracic region. | | The fracture through the C6-C7 disk space extending to the bilateral facet joints is | | stable in appearance. Posterior spinal fusion from C3-T2 is unchanged in position. Of | | note, the right C7 screw continues to traverse the superior aspect of its foramen and | | the right T1-T2 pedicle screw also traverses its respective foramen. No interval change | | in hardware alignment is seen. Interspace Levels/Facets: No interval development of | | spinal canal or foraminal stenosis is appreciated. Musculature: Postsurgical changes are | | noted in the dorsal soft tissues from recent surgery. Other: A prominent left thyroid | | lobe is again noted. The visualized lung apices are clear. IMPRESSION: 1. Stable spinal | | alignment, status post posterior spine fusion from C3-T2 compared to the cervical spine | | CT from 01/12/2017.2. Ankylosing spondylitis. [facility] Electronically signed by Yenifer | | MD Frank on Jan 16 2017 5:20AM Referring Provider Line: [phone] ID: [id number] | | | |Musculature: Postsurgical changes are noted in the dorsal soft tissues from recent surgery. | | | |Other: A prominent left thyroid lobe is again noted. The visualized lung apices are clear. | | | |IMPRESSION: | | | |1. Stable spinal alignment, status post posterior spine fusion from C3-T2 compared to the c ervical spine CT from 01/12/2017. | |2. Ankylosing spondylitis. | | | |[facility] | | | | Electronically signed by Yenifer Marie MD on Jan 16 2017 5:20AM Referring Provider Line: [phone] ID: [id number] | + + XR Abdomen AP (01/16/2017 2:42 AM PDT) + + | Specimen | + + | | + + + + + | Impressions | Performed At | + + + | Grossly negative supine 1-view abdomen x-ray. [facility] | | | Electronically signed by Williams Cooper MD on Jan 16 2017 3:10AM | | | Referring Provider Line: [phone] ID: [id number] | | + + + + + + | Narrative | Performed At | + + + | EXAM: ABDOMEN RADIOGRAPHY EXAM DATE: 01/16/2017 02:43 AM. | | | CLINICAL HISTORY: Constipation. COMPARISON: None. TECHNIQUE: 1 | | | view. FINDINGS: Bowel Gas Pattern: Within normal limits. No | | | dilated loops. Other: Previous bilateral hip replacements. | | + + + + + | Procedure Note | + + | Vamsi Guillaume Conversion - 04/05/2019 11:44 PM PDT EXAM:ABDOMEN RADIOGRAPHY EXAM DATE: | | 01/16/2017 02:43 AM. CLINICAL HISTORY: Constipation. COMPARISON: None. TECHNIQUE: 1 view. | | FINDINGS:Bowel Gas Pattern: Within normal limits. No dilated loops. Other: Previous | | bilateral hip replacements. IMPRESSION: Grossly negative supine 1-view abdomen x-ray. | | [facility] Electronically signed by Williams Cooper MD on Jan 16 2017 3:10AM Referring | | Provider Line: [phone] ID: [id number] | | | |COMPARISON: None. | | | |TECHNIQUE: 1 view. | | | |FINDINGS: | |Bowel Gas Pattern: Within normal limits. No dilated loops. | | | |Other: Previous bilateral hip replacements. | | | |IMPRESSION: | |Grossly negative supine 1-view abdomen x-ray. | | | |[facility] | | | | Electronically signed by Williams Cooper MD on Jan 16 2017 3:10AM Referring Provider Taylor e: [phone] ID: [id number] | + + POC Glucose (01/15/2017 8:48 PM PDT) + + + + + + | Component | Value | Ref Range | Performed | Pathologist | | | | | At | Signature | + + + + + + | Glucose, | 131 (H)Comment: Testing | 65 - 99 mg/dL | EXTERNAL | | | Fingerstick | performed at [facility];[address] | | LAB | | | | [address];[place] | | | | | | [address] | | | | + + + + + + + + | Specimen | + + | | + + + +---------+ + + | Performing | Address | City/State/Zipcode | Phone Number | | Organization | | | | + +---------+ + + | EXTERNAL LAB | | | | + +---------+ + + POC Glucose (01/15/2017 4:54 PM PDT) + + + + + + | Component | Value | Ref Range | Performed | Pathologist | | | | | At | Signature | + + + + + + | Glucose, | 188 (H)Comment: Testing | 65 - 99 mg/dL | EXTERNAL | | | Fingerstick | performed at [facility];[address] | | LAB | | | | [address];[place] | | | | | | [address] | | | | + + + + + + + + | Specimen | + + | | + + + +---------+ + + | Performing | Address | City/State/Zipcode | Phone Number | | Organization | | | | + +---------+ + + | EXTERNAL LAB | | | | + +---------+ + + Sodium (01/15/2017 1:55 PM PDT) + + + + + + | Component | Value | Ref Range | Performed | Pathologist | | | | | At | Signature | + + + + + + | Na | 126 (L)Comment: Testing | 135 - 145 | EXTERNAL | | | | performed at [facility];[address] | mmol/L | LAB | | | | [address];[place] | | | | | | [address] | | | | + + + + + + + + | Specimen | + + | Blood specimen | | (specimen) | + + + +---------+ + + | Performing | Address | City/State/Zipcode | Phone Number | | Organization | | | | + +---------+ + + | EXTERNAL LAB | | | | + +---------+ + + POC Glucose (01/15/2017 12:05 PM PDT) + + + + + + | Component | Value | Ref Range | Performed | Pathologist | | | | | At | Signature | + + + + + + | Glucose, | 233 (H)Comment: Testing | 65 - 99 mg/dL | EXTERNAL | | | Fingerstick | performed at [facility] | | LAB | | | | [address];[place], [place] | | | | | | [address] | | | | + + + + + + + + | Specimen | + + | | + + + +---------+ + + | Performing | Address | City/State/Zipcode | Phone Number | | Organization | | | | + +---------+ + + | EXTERNAL LAB | | | | + +---------+ + + POC Glucose (01/15/2017 6:06 AM PDT) + + + + + + | Component | Value | Ref Range | Performed | Pathologist | | | | | At | Signature | + + + + + + | Glucose, | 228 (H)Comment: Testing | 65 - 99 mg/dL | EXTERNAL | | | Fingerstick | performed at [facility];[address] | | LAB | | | | [address];[place], [place] | | | | | | [address] | | | | + + + + + + + + | Specimen | + + | | + + + +---------+ + + | Performing | Address | City/State/Zipcode | Phone Number | | Organization | | | | + +---------+ + + | EXTERNAL LAB | | | | + +---------+ + + Felaime INR (01/15/2017 4:13 AM PDT) + + + + + + | Component | Value | Ref Range | Performed | Pathologist | | | | | At | Signature | + + + + + + | INR | 1.1Comment: REFERENCE | | EXTERNAL | | | | RANGE:0.9 - 1.2 | | LAB | | | | NON-ANTICOAGULATED2.0 | | | | | | - 3.0 ALL OTHER | | | | | | THERAPEUTIC | | | | | | INDICATIONS2.5 - 3.5 | | | | | | MECHANICAL HEART VALVES, | | | | | | RECURRENT OR SYSTEMIC | | | | | | EMBOLISMTesting | | | | | | performed at [facility] | | | | | | [address];[place], [place] | | | | | | [address] | | | | + + + [...] + +---------+ + + External Lab: CBC (01/15/2017 4:13 AM PDT) + + + + + + | Component | Value | Ref Range | Performed | Pathologist | | | | | At | Signature | + + + + + + | WBC | 18.91 (H) | 3.80 - 11.00 | EXTERNAL | | | | | K/uL | LAB | | + + + + + + | RED CELL | 4.90 | 4.20 - 5.70 | EXTERNAL | | | COUNT | | M/uL | LAB | | + + + + + + | Hgb | 14.5 | 13.2 - 17.0 | EXTERNAL | | | | | g/dL | LAB | | + + + + + + | Hematocrit, | 42.3 | 39.0 - 50.0 % | EXTERNAL | | | POC | | | LAB | | + + + + + + | MCV | 86.3 | 80.0 - 100.0 fl | EXTERNAL | | | | | | LAB | | + + + + + + | MCH | 29.5 | 27.0 - 34.0 pg | EXTERNAL | | | | | | LAB | | + + + + + + | MCHC | 34.2 | 32.0 - 35.5 | EXTERNAL | | | | | g/dL | LAB | | + + + + + + | RDW-CV | 43.8 | 37 - 53 fl | EXTERNAL | | | | | | LAB | | + + + + + + | Platelet | 314 | 150 - 400 K/uL | EXTERNAL | | | Count | | | LAB | | | Plasma | | | | | + + + + + + | MPV | 7.7 | fl | EXTERNAL | | | | | | LAB | | + + + + + + | Differentia | MANUAL | | EXTERNAL | | | l Type | | | LAB | | + + + + + + | Segmented | 82 | % | EXTERNAL | | | Neutrophils | | | LAB | | | Manual | | | | | + + + + + + | % Bands | 3 | % | EXTERNAL | | | | | | LAB | | + + + + + + | % | 1 | % | EXTERNAL | | | Metamyelocy | | | LAB | | | lang | | | | | + + + + + + | Lymphocytes | 10 | % | EXTERNAL | | | Manual | | | LAB | | + + + + + + | Monocytes | 4 | % | EXTERNAL | | | Manual | | | LAB | | + + + + + + | Absolute | 15.50 (H) | 1.90 - 7.40 | EXTERNAL | | | Neutrophils | | K/uL | LAB | | + + + + + + | Bands | 0.57 (H) | 0.00 - 0.20 | EXTERNAL | | | Manual | | K/uL | LAB | | + + + + + + | Absolute | 0.19 (H) | K/uL | EXTERNAL | | | Metamyelocy | | | LAB | | | lang | | | | | + + + + + + | Absolute | 1.89 | 1.00 - 3.90 | EXTERNAL | | | Lymphocytes | | K/uL | LAB | | + + + + + + | Absolute | 0.76 | 0.00 - 0.80 | EXTERNAL | | | Monocytes | | K/uL | LAB | | + + + + + + | RBC | RBC AND PLT MORPHOLOGY | | EXTERNAL | | | Morphology | APPEAR NORMALComment: | | LAB | | | | Testing performed at | | | | | | [facility], [address] | | | | | | [place] | | | | | | [address] | | | | + + + + + + + + | Specimen | + + | Blood specimen | | (specimen) | + + + +---------+ + + | Performing | Address | City/State/Zipcode | Phone Number | | Organization | | | | + +---------+ + + | EXTERNAL LAB | | | | + +---------+ + + Phosphorus (01/15/2017 4:13 AM PDT) + + + + + + | Component | Value | Ref Range | Performed | Pathologist | | | | | At | Signature | + + + + + + | PHOSPHORUS | 5.5 (H)Comment: Testing | 2.3 - 4.8 mg/dL | EXTERNAL | | | | performed at [facility], [address] | | LAB | | | | [address], | | | | | | [place] [address] | | | | + + + + + + + + | Specimen | + + | Blood specimen | | (specimen) | + + + +---------+ + + | Performing | Address | City/State/Zipcode | Phone Number | | Organization | | | | + +---------+ + + | EXTERNAL LAB | | | | + +---------+ + + Magnesium (01/15/2017 4:13 AM PDT) + + + + + + | Component | Value | Ref Range | Performed | Pathologist | | | | | At | Signature | + + + + + + | Magnesium | 2.1Comment: Testing | 1.7 - 2.4 mg/dL | EXTERNAL | | | | performed at [facility], [address] | | LAB | | | | [address], | | | | | | [place] [address] | | | | + + + [...] + +---------+ + + Basic Metabolic Panel (01/15/2017 4:13 AM PDT) + + + + + + | Component | Value | Ref Range | Performed | Pathologist | | | | | At | Signature | + + + + + + | Na | 128 (L) | 135 - 145 | EXTERNAL | | | | | mmol/L | LAB | | + + + + + + | K | 4.1 | 3.5 - 4.9 | EXTERNAL | | | | | mmol/L | LAB | | + + + + + + | Cl | 86 (L) | 99 - 109 mmol/L | EXTERNAL | | | | | | LAB | | + + + + + + | CO2 | 32 | 23 - 32 mmol/L | EXTERNAL | | | | | | LAB | | + + + + + + | Anion Gap | 14 | 5 - 20 mmol/L | EXTERNAL | | | | | | LAB | | + + + + + + | Glucose, | 209 (H) | 65 - 99 mg/dL | EXTERNAL | | | Fasting | | | LAB | | + + + + + + | BUN | 31 (H) | 8 - 25 mg/dL | EXTERNAL | | | | | | LAB | | + + + + + + | Creatinine | 1.2 | 0.70 - 1.30 | EXTERNAL | | | | | mg/dL | LAB | | + + + + + + | BUN/Creatin | 26 | | EXTERNAL | | | ine Ratio | | | LAB | | + + + + + + | Calcium | 10.5 | 8.5 - 10.5 | EXTERNAL | [...] BY | | | | | | 1.210.Testing performed | | | | | | at [facility], [address] | | | | | | [facility], | | | | | | [place] [address] | | | | + + + + + + + + | Specimen | + + | Blood specimen | | (specimen) | + + + +---------+ + + | Performing | Address | City/State/Zipcode | Phone Number | | Organization | | | | + +---------+ + + | EXTERNAL LAB | | | | + +---------+ + + POC Glucose (01/14/2017 9:59 PM PDT) + + + + + + | Component | Value | Ref Range | Performed | Pathologist | | | | | At | Signature | + + + + + + | Glucose, | 162 (H)Comment: Testing | 65 - 99 mg/dL | EXTERNAL | | | Fingerstick | performed at [facility];[address] | | LAB | | | | [address];[place] | | | | | | [address] | | | | + + + + + + + + | Specimen | + + | | + + + +---------+ + + | Performing | Address | City/State/Zipcode | Phone Number | | Organization | | | | + +---------+ + + | EXTERNAL LAB | | | | + +---------+ + + POC Glucose (01/14/2017 4:50 PM PDT) + + + + + + | Component | Value | Ref Range | Performed | Pathologist | | | | | At | Signature | + + + + + + | Glucose, | 194 (H)Comment: Testing | 65 - 99 mg/dL | EXTERNAL | | | Fingerstick | performed at [facility];[address] | | LAB | | | | [address];[place], [place] | | | | | | [address] | | | | + + + + + + + + | Specimen | + + | | + + + +---------+ + + | Performing | Address | City/State/Zipcode | Phone Number | | Organization | | | | + +---------+ + + | EXTERNAL LAB | | | | + +---------+ + + POC Glucose (01/14/2017 11:58 AM PDT) + + + + + + | Component | Value | Ref Range | Performed | Pathologist | | | | | At | Signature | + + + + + + | Glucose, | 227 (H)Comment: Testing | 65 - 99 mg/dL | EXTERNAL | | | Fingerstick | performed at [facility];[address] | | LAB | | | | [address];[place] | | | | | | [address] | | | | + + + + + + + + | Specimen | + + | | + + + +---------+ + + | Performing | Address | City/State/Zipcode | Phone Number | | Organization | | | | + +---------+ + + | EXTERNAL LAB | | | | + +---------+ + + CT Head wo Contrast (01/14/2017 9:00 AM PDT) + + | Specimen | + + | | + + + + + | Impressions | Performed At | + + + | 1. No acute intracranial findings. 2. Decreased postoperative | | | pneumocephalus compared with 01/09/2017. 3. No definite evidence of | | | over-shunting. Electronically signed by David Ayers DO on | | | 01/14/2017 9:44 AM | | + + + + + + | Narrative | Performed At | + + + | [facility] CT HEAD WO CONTRAST 01/14/2017 9:00 AM HISTORY: | | | 66 years. Male. Headache. CSF leak. The patient had a recent | | | C3-T2 posterior instrumented fusion for cervical fracture with | | | ankylosing spondylosis affecting the entire spine. He had an | | | inadvertent CSF leak, which was repaired intraoperatively. On | | | 01/12/2017, his Wilfrido-Shaw drain had some CSF, which was removed an | | | a suture was applied in place. He had 1 episode of leaking of CSF | | | from the wound on 01/13/2017 noted in the morning which stopped for | | | short time but then subsequently began again. On 01/13/2017 he was | | | brought back to the OR for placement of an L4-L5 lumbar drain, | | | resuturing of the cervicothoracic wound and aggressive drainage of CSF | | | via the lumbar drain so that site of the cervical CSF leak can heal. | | | TECHNIQUE: 5-mm axial noncontrast images were acquired from the | | | foramen magnum through the cranial vertex. Radiation dose reduction | | | was performed with automated exposure control. COMPARISON: CT | | | head 01/09/2017 FINDINGS: A small amount of residual | | | postoperative pneumocephalus is seen with droplets of air in the | | | subarachnoid space adjacent to the medial aspect of the anterior right | | | frontal lobe and also in the anterior horn of the left lateral | | | ventricle consistent with history of recent surgery. The overall | | | amount of pneumocephalus has decreased since 01/09/2017. The | | | ventricles, cisterns and sulci are normal in size and configuration. | | | The ventricles do not appear slitlike to suggest over-shunting. | | | Normal duncan-white differentiation is preserved. No extra-axial | | | fluid collections are noted. The orbits and their contents are | | | normal. The paranasal sinuses are well aerated. No mucosal | | | thickening or air-fluid levels are noted. The mastoid air cells show | | | normal pneumatization bilaterally. No mastoid fluid noted. The | | | osseous structures of the calvaria do not demonstrate fracture. No | | | lytic or blastic lesions are noted. The superintendent circus image shows extensive | | | posterior cervical fusion instrumentation extending from C3 | | | inferiorly. | | + + + + + | Procedure Note | + + | Markell, Rad Conversion - 04/05/2019 11:44 PM PDT [facility] HALL[facility] HEAD WO | | CONTRAST01/14/2017 9:00 AM HISTORY:66 years. Male. Headache. CSF leak. The patient | | had a recent C3-T2 posterior instrumented fusion for cervical fracture with ankylosing | | spondylosis affecting the entire spine. He had an inadvertent CSF leak, which was | | repaired intraoperatively. On 01/12/2017, his Wilfrido-Shaw drain had some CSF, which | | was removed an a suture was applied in place. He had 1 episode of leaking of CSF from | | the wound on 01/13/2017 noted in the morning which stopped for short time but then | | subsequently began again. On 01/13/2017 he was brought back to the OR for placement of | | an L4-L5 lumbar drain, resuturing of the cervicothoracic wound and aggressive drainage | | of CSF via the lumbar drain so that site of the cervical CSF leak can heal. | | TECHNIQUE:5-mm axial noncontrast images were acquired from the foramen magnum through | | the cranial vertex. Radiation dose reduction was performed with automated exposure | | control. COMPARISON:CT head 01/09/2017 FINDINGS:A small amount of residual postoperative | | pneumocephalus is seen with droplets of air in the subarachnoid space adjacent to the | | medial aspect of the anterior right frontal lobe and also in the anterior horn of the | | left lateral ventricle consistent with history of recent surgery. The overall amount of | | pneumocephalus has decreased since 01/09/2017. The ventricles, cisterns and sulci are | | normal in size and configuration. The ventricles do not appear slitlike to suggest | | over-shunting. Normal duncan-white differentiation is preserved. No extra-axial fluid | | collections are noted. The orbits and their contents are normal. The paranasal sinuses | | are well aerated. No mucosal thickening or air-fluid levels are noted. The mastoid | | air cells show normal pneumatization bilaterally. No mastoid fluid noted. The osseous | | structures of the calvaria do not demonstrate fracture. No lytic or blastic lesions are | | noted. The superintendent circus image shows extensive posterior cervical fusion instrumentation | | extending from C3 inferiorly. IMPRESSION: 1. No acute intracranial findings.2. | | Decreased postoperative pneumocephalus compared with 01/09/2017.3. No definite evidence | | of over-shunting. | |2. Decreased postoperative pneumocephalus compared with 01/09/2017. | |3. No definite evidence of over-shunting. | | | | | + + POC Glucose (01/14/2017 5:53 AM PDT) + + + + + + | Component | Value | Ref Range | Performed | Pathologist | | | | | At | Signature | + + + + + + | Glucose, | 168 (H)Comment: Testing | 65 - 99 mg/dL | EXTERNAL | | | Fingerstick | performed at [facility];[address] | | LAB | | | | [address];[place], [place] | | | | | | [address] | | | | + + + + + + + + | Specimen | + + | | + + + +---------+ + + | Performing | Address | City/State/Zipcode | Phone Number | | Organization | | | | + +---------+ + + | EXTERNAL LAB | | | | + +---------+ + + Protime INR (01/14/2017 3:58 AM PDT) + + + + + + | Component | Value | Ref Range | Performed | Pathologist | | | | | At | Signature | + + + + + + | INR | 1.1Comment: REFERENCE | | EXTERNAL | | | | RANGE:0.9 - 1.2 | | LAB | | | | NON-ANTICOAGULATED2.0 | | | | | | - 3.0 ALL OTHER | | | | | | THERAPEUTIC | | | | | | INDICATIONS2.5 - 3.5 | | | | | | MECHANICAL HEART VALVES, | | | | | | RECURRENT OR SYSTEMIC | | | | | | EMBOLISMTesting | | | | | | performed at [facility];[address] | | | | | | [address];[place], [place] | | | | | | [address] | | | | + + + [...] + +---------+ + + External Lab: CBC (01/14/2017 3:58 AM PDT) + + + + + + | Component | Value | Ref Range | Performed | Pathologist | | | | | At | Signature | + + + + + + | WBC | 15.45 (H) | 3.80 - 11.00 | EXTERNAL | | | | | K/uL | LAB | | + + + + + + | RED CELL | 4.53 | 4.20 - 5.70 | EXTERNAL | | | COUNT | | M/uL | LAB | | + + + + + + | Hgb | 13.3 | 13.2 - 17.0 | EXTERNAL | | | | | g/dL | LAB | | + + + + + + | Hematocrit, | 38.9 (L) | 39.0 - 50.0 % | EXTERNAL | | | POC | | | LAB | | + + + + + + | MCV | 85.7 | 80.0 - 100.0 fl | EXTERNAL | | | | | | LAB | | + + + + + + | MCH | 29.3 | 27.0 - 34.0 pg | EXTERNAL | | | | | | LAB | | + + + + + + | MCHC | 34.2 | 32.0 - 35.5 | EXTERNAL | | | | | g/dL | LAB | | + + + + + + | RDW-CV | 43.3 | 37 - 53 fl | EXTERNAL | | | | | | LAB | | + + + + + + | Platelet | 287 | 150 - 400 K/uL | EXTERNAL | | | Count | | | LAB | | | Plasma | | | | | + + + + + + | MPV | 8.0 | fl | EXTERNAL | | | | | | LAB | | + + + + + + | Differentia | MANUAL | | EXTERNAL | | | l Type | | | LAB | | + + + + + + | Segmented | 70 | % | EXTERNAL | | | Neutrophils | | | LAB | | | Manual | | | | | + + + + + + | % Bands | 4 | % | EXTERNAL | | | | | | LAB | | + + + + + + | Lymphocytes | 12 | % | EXTERNAL | | | Manual | | | LAB | | + + + + + + | Monocytes | 13 | % | EXTERNAL | | | Manual | | | LAB | | + + + + + + | Eosinophils | 1 | % | EXTERNAL | | | Manual | | | LAB | | + + + + + + | Absolute | 10.82 (H) | 1.90 - 7.40 | EXTERNAL | | | Neutrophils | | K/uL | LAB | | + + + + + + | Bands | 0.62 (H) | 0.00 - 0.20 | EXTERNAL | | | Manual | | K/uL | LAB | | + + + + + + | Absolute | 1.85 | 1.00 - 3.90 | EXTERNAL | | | Lymphocytes | | K/uL | LAB | | + + + + + + | Absolute | 2.01 (H) | 0.00 - 0.80 | EXTERNAL | | | Monocytes | | K/uL | LAB | | + + + + + + | Absolute | 0.15 | 0.00 - 0.50 | EXTERNAL | | | Eosinophils | | K/uL | LAB | | + + + + + + | RBC | RBC AND PLT MORPHOLOGY | | EXTERNAL | | | Morphology | APPEAR NORMALComment: | | LAB | | | | Testing performed at | | | | | | [facility], [address] | | | | | | [place] | | | | | | [address] | | | | + + + + + + + + | Specimen | + + | Blood specimen | | (specimen) | + + + +---------+ + + | Performing | Address | City/State/Zipcode | Phone Number | | Organization | | | | + +---------+ + + | EXTERNAL LAB | | | | + +---------+ + + Phosphorus (01/14/2017 3:58 AM PDT) + + + + + + | Component | Value | Ref Range | Performed | Pathologist | | | | | At | Signature | + + + + + + | PHOSPHORUS | 3.6Comment: Testing | 2.3 - 4.8 mg/dL | EXTERNAL | | | | performed at [facility], [address] | | LAB | | | | [address], | | | | | | [place] [address] | | | | + + + + + + + + | Specimen | + + | Blood specimen | | (specimen) | + + + +---------+ + + | Performing | Address | City/State/Zipcode | Phone Number | | Organization | | | | + +---------+ + + | EXTERNAL LAB | | | | + +---------+ + + Magnesium (01/14/2017 3:58 AM PDT) + + + + + + | Component | Value | Ref Range | Performed | Pathologist | | | | | At | Signature | + + + + + + | Magnesium | 1.9Comment: Testing | 1.7 - 2.4 mg/dL | EXTERNAL | | | | performed at [facility], [address] | | LAB | | | | [address], | | | | | | [place] [address] | | | | + + + [...] + +---------+ + + Basic Metabolic Panel (01/14/2017 3:58 AM PDT) + + + + + + | Component | Value | Ref Range | Performed | Pathologist | | | | | At | Signature | + + + + + + | Na | 130 (L) | 135 - 145 | EXTERNAL | | | | | mmol/L | LAB | | + + + + + + | K | 3.8 | 3.5 - 4.9 | EXTERNAL | | | | | mmol/L | LAB | | + + + + + + | Cl | 91 (L) | 99 - 109 mmol/L | EXTERNAL | | | | | | LAB | | + + + + + + | CO2 | 30 | 23 - 32 mmol/L | EXTERNAL | | | | | | LAB | | + + + + + + | Anion Gap | 13 | 5 - 20 mmol/L | EXTERNAL | | | | | | LAB | | + + + + + + | Glucose, | 152 (H) | 65 - 99 mg/dL | EXTERNAL | | | Fasting | | | LAB | | + + + + + + | BUN | 18 | 8 - 25 mg/dL | EXTERNAL | | | | | | LAB | | + + + + + + | Creatinine | 0.9 | 0.70 - 1.30 | EXTERNAL | | | | | mg/dL | LAB | | + + + + + + | BUN/Creatin | 20 | | EXTERNAL | | | ine Ratio | | | LAB | | + + + + + + | Calcium | 8.8 | 8.5 - 10.5 | EXTERNAL | [...] BY | | | | | | 1.210.Testing performed | | | | | | at [facility], [address] | | | | | | [address], | | | | | | [place] [address] | | | | + + + + + + + + | Specimen | + + | Blood specimen | | (specimen) | + + + +---------+ + + | Performing | Address | City/State/Zipcode | Phone Number | | Organization | | | | + +---------+ + + | EXTERNAL LAB | | | | + +---------+ + + POC Glucose (01/14/2017 1:46 AM PDT) + + + + + + | Component | Value | Ref Range | Performed | Pathologist | | | | | At | Signature | + + + + + + | Glucose, | 169 (H)Comment: Testing | 65 - 99 mg/dL | EXTERNAL | | | Fingerstick | performed at [facility];[address] | | LAB | | | | [address];[place], [place] | | | | | | [address] | | | | + + + + + + + + | Specimen | + + | | + + + +---------+ + + | Performing | Address | City/State/Zipcode | Phone Number | | Organization | | | | + +---------+ + + | EXTERNAL LAB | | | | + +---------+ + + POC Glucose (01/13/2017 9:37 PM PDT) + + + + + + | Component | Value | Ref Range | Performed | Pathologist | | | | | At | Signature | + + + + + + | Glucose, | 153 (H)Comment: Testing | 65 - 99 mg/dL | EXTERNAL | | | Fingerstick | performed at [facility];[address] | | LAB | | | | [address];[place] | | | | | | [address] | | | | + + + + + + + + | Specimen | + + | | + + + +---------+ + + | Performing | Address | City/State/Zipcode | Phone Number | | Organization | | | | + +---------+ + + | EXTERNAL LAB | | | | + +---------+ + + POC Glucose (01/13/2017 4:57 PM PDT) + + + + + + | Component | Value | Ref Range | Performed | Pathologist | | | | | At | Signature | + + + + + + | Glucose, | 183 (H)Comment: Testing | 65 - 99 mg/dL | EXTERNAL | | | Fingerstick | performed at [facility] [place] | | LAB | | | | [address];[place], [place] | | | | | | [id number] | | | | + + + + + + + + | Specimen | + + | | + + + +---------+ + + | Performing | Address | City/State/Zipcode | Phone Number | | Organization | | | | + +---------+ + + | EXTERNAL LAB | | | | + +---------+ + + POC Glucose (01/13/2017 2:59 PM PDT) + + + + + + | Component | Value | Ref Range | Performed | Pathologist | | | | | At | Signature | + + + + + + | Glucose, | 188 (H)Comment: Testing | 65 - 99 mg/dL | EXTERNAL | | | Fingerstick | performed at [facility];[address] | | LAB | | | | [address];[place] | | | | | | [address] | | | | + + + + + + + + | Specimen | + + | | + + + +---------+ + + | Performing | Address | City/State/Zipcode | Phone Number | | Organization | | | | + +---------+ + + | EXTERNAL LAB | | | | + +---------+ + + POC Glucose (01/13/2017 9:28 AM PDT) + + + + + + | Component | Value | Ref Range | Performed | Pathologist | | | | | At | Signature | + + + + + + | Glucose, | 141 (H)Comment: Testing | 65 - 99 mg/dL | EXTERNAL | | | Fingerstick | performed at [facility];[address] | | LAB | | | | [address];[place], [place] | | | | | | [address] | | | | + + + + + + + + | Specimen | + + | | + + + +---------+ + + | Performing | Address | City/State/Zipcode | Phone Number | | Organization | | | | + +---------+ + + | EXTERNAL LAB | | | | + +---------+ + + Felaime INR (01/13/2017 4:14 AM PDT) + + + + + + | Component | Value | Ref Range | Performed | Pathologist | | | | | At | Signature | + + + + + + | INR | 1.1Comment: REFERENCE | | EXTERNAL | | | | RANGE:0.9 - 1.2 | | LAB | | | | NON-ANTICOAGULATED2.0 | | | | | | - 3.0 ALL OTHER | | | | | | THERAPEUTIC | | | | | | INDICATIONS2.5 - 3.5 | | | | | | MECHANICAL HEART VALVES, | | | | | | RECURRENT OR SYSTEMIC | | | | | | EMBOLISMTesting | | | | | | performed at [facility];[address] | | | | | | [facility];[place], [place] | | | | | | [address] | | | | + + + [...] + +---------+ + + External Lab: CBC (01/13/2017 4:14 AM PDT) + + + + + + | Component | Value | Ref Range | Performed | Pathologist | | | | | At | Signature | + + + + + + | WBC | 16.48 (H) | 3.80 - 11.00 | EXTERNAL | | | | | K/uL | LAB | | + + + + + + | RED CELL | 4.46 | 4.20 - 5.70 | EXTERNAL | | | COUNT | | M/uL | LAB | | + + + + + + | Hgb | 13.0 (L) | 13.2 - 17.0 | EXTERNAL | | | | | g/dL | LAB | | + + + + + + | Hematocrit, | 38.5 (L) | 39.0 - 50.0 % | EXTERNAL | | | POC | | | LAB | | + + + + + + | MCV | 86.3 | 80.0 - 100.0 fl | EXTERNAL | | | | | | LAB | | + + + + + + | MCH | 29.2 | 27.0 - 34.0 pg | EXTERNAL | | | | | | LAB | | + + + + + + | MCHC | 33.8 | 32.0 - 35.5 | EXTERNAL | | | | | g/dL | LAB | | + + + + + + | RDW-CV | 44.6 | 37 - 53 fl | EXTERNAL | | | | | | LAB | | + + + + + + | Platelet | 288 | 150 - 400 K/uL | EXTERNAL | | | Count | | | LAB | | | Plasma | | | | | + + + + + + | MPV | 8.3 | fl | EXTERNAL | | | | | | LAB | | + + + + + + | Differentia | MANUAL | | EXTERNAL | | | l Type | | | LAB | | + + + + + + | Segmented | 76 | % | EXTERNAL | | | Neutrophils | | | LAB | | | Manual | | | | | + + + + + + | Lymphocytes | 19 | % | EXTERNAL | | | Manual | | | LAB | | + + + + + + | Monocytes | 5 | % | EXTERNAL | | | Manual | | | LAB | | + + + + + + | Absolute | 12.53 (H) | 1.90 - 7.40 | EXTERNAL | | | Neutrophils | | K/uL | LAB | | + + + + + + | Absolute | 3.13 | 1.00 - 3.90 | EXTERNAL | | | Lymphocytes | | K/uL | LAB | | + + + + + + | Absolute | 0.82 (H) | 0.00 - 0.80 | EXTERNAL | | | Monocytes | | K/uL | LAB | | + + + + + + | RBC | RBC AND PLT MORPHOLOGY | | EXTERNAL | | | Morphology | APPEAR NORMALComment: | | LAB | | | | Testing performed at | | | | | | [facility], [address] [facility] | | | | | | [place] | | | | | | [address] | | | | + + + + + + + + | Specimen | + + | Blood specimen | | (specimen) | + + + +---------+ + + | Performing | Address | City/State/Zipcode | Phone Number | | Organization | | | | + +---------+ + + | EXTERNAL LAB | | | | + +---------+ + + Phosphorus (01/13/2017 4:14 AM PDT) + + + + + + | Component | Value | Ref Range | Performed | Pathologist | | | | | At | Signature | + + + + + + | PHOSPHORUS | 4.3Comment: Testing | 2.3 - 4.8 mg/dL | EXTERNAL | | | | performed at [facility], [address] | | LAB | | | | [address], | | | | | | [place] [address] | | | | + + + + + + + + | Specimen | + + | Blood specimen | | (specimen) | + + + +---------+ + + | Performing | Address | City/State/Zipcode | Phone Number | | Organization | | | | + +---------+ + + | EXTERNAL LAB | | | | + +---------+ + + Magnesium (01/13/2017 4:14 AM PDT) + + + + + + | Component | Value | Ref Range | Performed | Pathologist | | | | | At | Signature | + + + + + + | Magnesium | 2.0Comment: Testing | 1.7 - 2.4 mg/dL | EXTERNAL | | | | performed at [facility], [address] | | LAB | | | | [address], | | | | | | [place] [address] | | | | + + + [...] + +---------+ + + Basic Metabolic Panel (01/13/2017 4:14 AM PDT) + + + + + + | Component | Value | Ref Range | Performed | Pathologist | | | | | At | Signature | + + + + + + | Na | 133 (L) | 135 - 145 | EXTERNAL | | | | | mmol/L | LAB | | + + + + + + | K | 4.2 | 3.5 - 4.9 | EXTERNAL | | | | | mmol/L | LAB | | + + + + + + | Cl | 93 (L) | 99 - 109 mmol/L | EXTERNAL | | | | | | LAB | | + + + + + + | CO2 | 31 | 23 - 32 mmol/L | EXTERNAL | | | | | | LAB | | + + + + + + | Anion Gap | 13 | 5 - 20 mmol/L | EXTERNAL | | | | | | LAB | | + + + + + + | Glucose, | 127 (H) | 65 - 99 mg/dL | EXTERNAL | | | Fasting | | | LAB | | + + + + + + | BUN | 23 | 8 - 25 mg/dL | EXTERNAL | | | | | | LAB | | + + + + + + | Creatinine | 1.0 | 0.70 - 1.30 | EXTERNAL | | | | | mg/dL | LAB | | + + + + + + | BUN/Creatin | 23 | | EXTERNAL | | | ine Ratio | | | LAB | | + + + + + + | Calcium | 9.1 | 8.5 - 10.5 | EXTERNAL | [...] BY | | | | | | 1.210.Testing performed | | | | | | at [facility], [address] | | | | | | [address], | | | | | | [place] [address] | | | | + + + + + + + + | Specimen | + + | Blood specimen | | (specimen) | + + + +---------+ + + | Performing | Address | City/State/Zipcode | Phone Number | | Organization | | | | + +---------+ + + | EXTERNAL LAB | | | | + +---------+ + + POC Glucose (01/13/2017 2:20 AM PDT) + + + + + + | Component | Value | Ref Range | Performed | Pathologist | | | | | At | Signature | + + + + + + | Glucose, | 136 (H)Comment: Testing | 65 - 99 mg/dL | EXTERNAL | | | Fingerstick | performed at [facility];[address] | | LAB | | | | [address];[place] | | | | | | [address] | | | | + + + + + + + + | Specimen | + + | | + + + +---------+ + + | Performing | Address | City/State/Zipcode | Phone Number | | Organization | | | | + +---------+ + + | EXTERNAL LAB | | | | + +---------+ + + POC Glucose (01/12/2017 4:43 PM PDT) + + + + + + | Component | Value | Ref Range | Performed | Pathologist | | | | | At | Signature | + + + + + + | Glucose, | 178 (H)Comment: Testing | 65 - 99 mg/dL | EXTERNAL | | | Fingerstick | performed at [facility];[address] | | LAB | | | | [address];[place] | | | | | | [address] | | | | + + + + + + + + | Specimen | + + | | + + + +---------+ + + | Performing | Address | City/State/Zipcode | Phone Number | | Organization | | | | + +---------+ + + | EXTERNAL LAB | | | | + +---------+ + + POC Glucose (01/12/2017 12:14 PM PDT) + + + + + + | Component | Value | Ref Range | Performed | Pathologist | | | | | At | Signature | + + + + + + | Glucose, | 157 (H)Comment: Testing | 65 - 99 mg/dL | EXTERNAL | | | Fingerstick | performed at [facility];[address] | | LAB | | | | [address];[place], [place] | | | | | | [address] | | | | + + + + + + + + | Specimen | + + | | + + + +---------+ + + | Performing | Address | City/State/Zipcode | Phone Number | | Organization | | | | + +---------+ + + | EXTERNAL LAB | | | | + +---------+ + + CT Cervical Spine wo Contrast (01/12/2017 8:13 AM PDT) + + | Specimen | + + | | + + + + + | Impressions | Performed At | + + + | 1. Previously seen surgical drain has been removed. 2. | | | Right-sided pedicle screw at C7 traverses the superior margin of the | | | C7-T1 neural foramen and could affect the exiting right C8 nerve | | | root. Right-sided pedicle screw at T1 traverses the T1-2 neural | | | foramen centrally and may be compressing the exiting right T1 nerve | | | root. These findings are unchanged from the previous exam. 3. All | | | other transpedicular screws are in satisfactory position. 4. | | | Enlarged left thyroid lobe suggesting goiter or large nodule. 5. | | | Atrophy of the right submandibular gland with a 6 mm sialolith seen | | | within the gland. Electronically signed by David Ayers DO on | | | 01/12/2017 10:08 AM | | + + + + + + | Narrative | Performed At | + + + | [facility] CERVICAL SPINE WO CONTRAST 01/12/2017 8:13 AM | | | HISTORY: 66 years. Male. Closed nondisplaced fracture of 7th | | | cervical vertebrae, unspecified fracture morphology, initial | | | encounter. Status post cervical spinal fusion. TECHNIQUE: | | | Axial 1.25-mm images were acquired through the cervical region. | | | Coronal and sagittal reconstructions were performed. Radiation | | | dose reduction was performed with automated exposure control. | | | COMPARISON: CTA head and neck 01/09/2017, CT thoracic and lumbar | | | spine 01/07/2017, MRI cervical spine 01/09/2017. Outside CT cervical | | | spine performed at [facility] 01/06/2017 FINDINGS: | | | VERTEBRAL BODIES: The vertebral bodies are normal in height. The | | | patient has known diffuse ankylosis of the entire spine from the | | | craniocervical junction to the sacrum. On this examination, diffuse | | | osseous fusion of the entire cervical spine including the vertebral | | | bodies, facets and spinous processes is noted due to extensive | | | calcification of all of the ligamentous structures. At the site of | | | fracture at C6-7 there is slight widening of the disc space and the | | | anterior longitudinal ligament is not ossified. The horizontally | | | oriented fractures through the fused facets at the C6-7 level are | | | clearly visualized and are slightly distracted measuring 2 mm on the | | | left and 1 mm on the right. PRIOR SURGICAL CHANGES: The patient | | | has undergone posterior fusion with translaminar screws at C3-C4 and | | | C5 and transpedicular screws bilaterally at C7, T1 and T2 on the left. | | | The screws are linked vertically with paraspinal rods. The rods | | | are intact. The right-sided C7 pedicle screw traverses the | | | superior margin of the right C7-T1 neural foramen and may be affecting | | | the exiting right C8 nerve root. The T1 screw is laterally angled | | | and traverses the center of the right T1-T2 neural foramen and may | | | be compressing the exiting right T1 nerve root. CRANIOCERVICAL | | | JUNCTION: The foramen magnum is patent. Clivus appears normal. | | | The dens is normal. The occipitoatlantal joints are normal. The | | | atlantoaxial joints are normal. The atlantodental joint is normal. | | | INTERVERTEBRAL DISKS: C2-3 AND BELOW: The discs are normal in | | | height and have normal posterior contours. The canal and neural | | | foramina are patent at all observed levels. The facet joints are | | | fused at all levels. PARASPINAL SOFT TISSUES: Postoperative air | | | is seen in the posterior paraspinal soft tissues. The previously | | | seen surgical drain has been removed. Bone graft material is seen | | | surrounding the posterior instrumentation. SOFT TISSUES OF THE | | | NECK: The visualized soft tissues of the anterior neck do not | | | demonstrate obvious mass or adenopathy. The left thyroid lobe is | | | enlarged suggesting a large nodule or goiter. The visualized parotid | | | glands appear normal. The right submandibular gland is small and | | | contains a sialolith measuring 6 mm in size. The left submandibular | | | gland is normal. LUNG APICES: The visualized portions of lung | | | apices are normal. | | + + + + + | Procedure Note | + + | Markell, Rad Conversion - 04/05/2019 11:44 PM PDT [facility] CERVICAL SPINE WO | | CONTRAST01/12/2017 8:13 AM HISTORY: 66 years. Male. Closed nondisplaced fracture of | | 7th cervical vertebrae, unspecified fracture morphology, initial encounter. Status post | | cervical spinal fusion. TECHNIQUE: Axial 1.25-mm images were acquired through the | | cervical region. Coronal and sagittal reconstructions were performed. Radiation dose | | reduction was performed with automated exposure control. COMPARISON: CTA head and neck | | 01/09/2017, CT thoracic and lumbar spine 01/07/2017, MRI cervical spine 01/09/2017. | | Outside CT cervical spine performed at [facility] 01/06/2017 | | FINDINGS:VERTEBRAL BODIES: The vertebral bodies are normal in height. The patient has | | known diffuse ankylosis of the entire spine from the craniocervical junction to the | | sacrum. On this examination, diffuse osseous fusion of the entire cervical spine | | including the vertebral bodies, facets and spinous processes is noted due to extensive | | calcification of all of the ligamentous structures. At the site of fracture at C6-7 | | there is slight widening of the disc space and the anterior longitudinal ligament is not | | ossified. The horizontally oriented fractures through the fused facets at the C6-7 | | level are clearly visualized and are slightly distracted measuring 2 mm on the left and | | 1 mm on the right. PRIOR SURGICAL CHANGES: The patient has undergone posterior fusion | | with translaminar screws at C3-C4 and C5 and transpedicular screws bilaterally at C7, T1 | | and T2 on the left. The screws are linked vertically with paraspinal rods. The rods | | are intact. The right-sided C7 pedicle screw traverses the superior margin of the right | | C7-T1 neural foramen and may be affecting the exiting right C8 nerve root. The T1 | | screw is laterally angled and traverses the center of the right T1-T2 neural foramen and | | may be compressing the exiting right T1 nerve root. CRANIOCERVICAL JUNCTION: The | | foramen magnum is patent. Clivus appears normal. The dens is normal. The | | occipitoatlantal joints are normal. The atlantoaxial joints are normal. The | | atlantodental joint is normal. INTERVERTEBRAL DISKS:C2-3 AND BELOW: The discs are | | normal in height and have normal posterior contours. The canal and neural foramina are | | patent at all observed levels. The facet joints are fused at all levels. PARASPINAL | | SOFT TISSUES: Postoperative air is seen in the posterior paraspinal soft tissues. The | | previously seen surgical drain has been removed. Bone graft material is seen | | surrounding the posterior instrumentation. SOFT TISSUES OF THE NECK: The visualized | | soft tissues of the anterior neck do not demonstrate obvious mass or adenopathy. The | | left thyroid lobe is enlarged suggesting a large nodule or goiter. The visualized | | parotid glands appear normal. The right submandibular gland is small and contains a | | sialolith measuring 6 mm in size. The left submandibular gland is normal. LUNG APICES: | | The visualized portions of lung apices are normal. IMPRESSION: 1. Previously seen | | surgical drain has been removed.2. Right-sided pedicle screw at C7 traverses the | | superior margin of the C7-T1 neural foramen and could affect the exiting right C8 nerve | | root. Right-sided pedicle screw at T1 traverses the T1-2 neural foramen centrally and | | may be compressing the exiting right T1 nerve root. These findings are unchanged from | | the previous exam.3. All other transpedicular screws are in satisfactory position.4. | | Enlarged left thyroid lobe suggesting goiter or large nodule.5. Atrophy of the right | | submandibular gland with a 6 mm sialolith seen within the gland. | + + Protime INR (01/12/2017 5:58 AM PDT) + + + + + + | Component | Value | Ref Range | Performed | Pathologist | | | | | At | Signature | + + + + + + | INR | 1.1Comment: REFERENCE | | EXTERNAL | | | | RANGE:0.9 - 1.2 | | LAB | | | | NON-ANTICOAGULATED2.0 | | | | | | - 3.0 ALL OTHER | | | | | | THERAPEUTIC | | | | | | INDICATIONS2.5 - 3.5 | | | | | | MECHANICAL HEART VALVES, | | | | | | RECURRENT OR SYSTEMIC | | | | | | EMBOLISMTesting | | | | | | performed at [facility] | | | | | | [address] [facility];[place], [place] | | | | | | [address] | | | | + + + [...] + +---------+ + + External Lab: CBC (01/12/2017 5:58 AM PDT) + + + + + + | Component | Value | Ref Range | Performed | Pathologist | | | | | At | Signature | + + + + + + | WBC | 20.42 (H) | 3.80 - 11.00 | EXTERNAL | | | | | K/uL | LAB | | + + + + + + | RED CELL | 3.89 (L) | 4.20 - 5.70 | EXTERNAL | | | COUNT | | M/uL | LAB | | + + + + + + | Hgb | 11.2 (L) | 13.2 - 17.0 | EXTERNAL | | | | | g/dL | LAB | | + + + + + + | Hematocrit, | 33.4 (L) | 39.0 - 50.0 % | EXTERNAL | | | POC | | | LAB | | + + + + + + | MCV | 85.7 | 80.0 - 100.0 fl | EXTERNAL | | | | | | LAB | | + + + + + + | MCH | 28.7 | 27.0 - 34.0 pg | EXTERNAL | | | | | | LAB | | + + + + + + | MCHC | 33.5 | 32.0 - 35.5 | EXTERNAL | | | | | g/dL | LAB | | + + + + + + | RDW-CV | 44.6 | 37 - 53 fl | EXTERNAL | | | | | | LAB | | + + + + + + | Platelet | 254 | 150 - 400 K/uL | EXTERNAL | | | Count | | | LAB | | | Plasma | | | | | + + + + + + | MPV | 8.1 | fl | EXTERNAL | | | | | | LAB | | + + + + + + | Differentia | MANUAL | | EXTERNAL | | | l Type | | | LAB | | + + + + + + | Segmented | 90 | % | EXTERNAL | | | Neutrophils | | | LAB | | | Manual | | | | | + + + + + + | Lymphocytes | 6 | % | EXTERNAL | | | Manual | | | LAB | | + + + + + + | Monocytes | 4 | % | EXTERNAL | | | Manual | | | LAB | | + + + + + + | Absolute | 18.37 (H) | 1.90 - 7.40 | EXTERNAL | | | Neutrophils | | K/uL | LAB | | + + + + + + | Absolute | 1.23 | 1.00 - 3.90 | EXTERNAL | | | Lymphocytes | | K/uL | LAB | | + + + + + + | Absolute | 0.82 (H) | 0.00 - 0.80 | EXTERNAL | | | Monocytes | | K/uL | LAB | | + + + + + + | RBC | RBC AND PLT MORPHOLOGY | | EXTERNAL | | | Morphology | APPEAR NORMALComment: | | LAB | | | | Testing performed at | | | | | | [facility], [address] [place] [address] | | | | | | [facility], [place], [place] | | | | | | [address] | | | | + + + + + + + + | Specimen | + + | Blood specimen | | (specimen) | + + + +---------+ + + | Performing | Address | City/State/Zipcode | Phone Number | | Organization | | | | + +---------+ + + | EXTERNAL LAB | | | | + +---------+ + + Phosphorus (01/12/2017 5:58 AM PDT) + + + + + + | Component | Value | Ref Range | Performed | Pathologist | | | | | At | Signature | + + + + + + | PHOSPHORUS | 2.9Comment: Testing | 2.3 - 4.8 mg/dL | EXTERNAL | | | | performed at [facility], [address] | | LAB | | | | [address], | | | | | | [place] [address] | | | | + + + + + + + + | Specimen | + + | Blood specimen | | (specimen) | + + + +---------+ + + | Performing | Address | City/State/Zipcode | Phone Number | | Organization | | | | + +---------+ + + | EXTERNAL LAB | | | | + +---------+ + + Magnesium (01/12/2017 5:58 AM PDT) + + + + + + | Component | Value | Ref Range | Performed | Pathologist | | | | | At | Signature | + + + + + + | Magnesium | 2.3Comment: Testing | 1.7 - 2.4 mg/dL | EXTERNAL | | | | performed at [facility], [address] | | LAB | | | | [address], | | | | | | [place] [address] | | | | + + + [...] + +---------+ + + Basic Metabolic Panel (01/12/2017 5:58 AM PDT) + + + + + + | Component | Value | Ref Range | Performed | Pathologist | | | | | At | Signature | + + + + + + | Na | 135 | 135 - 145 | EXTERNAL | | | | | mmol/L | LAB | | + + + + + + | K | 4.7 | 3.5 - 4.9 | EXTERNAL | | | | | mmol/L | LAB | | + + + + + + | Cl | 97 (L) | 99 - 109 mmol/L | EXTERNAL | | | | | | LAB | | + + + + + + | CO2 | 31 | 23 - 32 mmol/L | EXTERNAL | | | | | | LAB | | + + + + + + | Anion Gap | 12 | 5 - 20 mmol/L | EXTERNAL | | | | | | LAB | | + + + + + + | Glucose, | 230 (H) | 65 - 99 mg/dL | EXTERNAL | | | Fasting | | | LAB | | + + + + + + | BUN | 19 | 8 - 25 mg/dL | EXTERNAL | | | | | | LAB | | + + + + + + | Creatinine | 0.8 | 0.70 - 1.30 | EXTERNAL | | | | | mg/dL | LAB | | + + + + + + | BUN/Creatin | 24 | | EXTERNAL | | | ine Ratio | | | LAB | | + + + + + + | Calcium | 9.7 | 8.5 - 10.5 | EXTERNAL | [...] BY | | | | | | 1.210.Testing performed | | | | | | at [facility], [address] | | | | | | [address], | | | | | | [place] [address] | | | | + + + + + + + + | Specimen | + + | Blood specimen | | (specimen) | + + + +---------+ + + | Performing | Address | City/State/Zipcode | Phone Number | | Organization | | | | + +---------+ + + | EXTERNAL LAB | | | | + +---------+ + + POC Glucose (01/12/2017 5:39 AM PDT) + + + + + + | Component | Value | Ref Range | Performed | Pathologist | | | | | At | Signature | + + + + + + | Glucose, | 287 (H)Comment: Testing | 65 - 99 mg/dL | EXTERNAL | | | Fingerstick | performed at [facility];[address] | | LAB | | | | [address];[place], [place] | | | | | | [address] | | | | + + + + + + + + | Specimen | + + | | + + + +---------+ + + | Performing | Address | City/State/Zipcode | Phone Number | | Organization | | | | + +---------+ + + | EXTERNAL LAB | | | | + +---------+ + + POC Glucose (01/11/2017 8:00 PM PDT) + + + + + + | Component | Value | Ref Range | Performed | Pathologist | | | | | At | Signature | + + + + + + | Glucose, | 161 (H)Comment: Testing | 65 - 99 mg/dL | EXTERNAL | | | Fingerstick | performed at [facility];[address] | | LAB | | | | [address];[place], [place] | | | | | | [address] | | | | + + + + + + + + | Specimen | + + | | + + + +---------+ + + | Performing | Address | City/State/Zipcode | Phone Number | | Organization | | | | + +---------+ + + | EXTERNAL LAB | | | | + +---------+ + + POC Glucose (01/11/2017 2:27 PM PDT) + + + + + + | Component | Value | Ref Range | Performed | Pathologist | | | | | At | Signature | + + + + + + | Glucose, | 166 (H)Comment: Testing | 65 - 99 mg/dL | EXTERNAL | | | Fingerstick | performed at [facility];[address] | | LAB | | | | [address];[place] | | | | | | [address] | | | | + + + + + + + + | Specimen | + + | | + + + +---------+ + + | Performing | Address | City/State/Zipcode | Phone Number | | Organization | | | | + +---------+ + + | EXTERNAL LAB | | | | + +---------+ + + POC Glucose (01/11/2017 10:06 AM PDT) + + + + + + | Component | Value | Ref Range | Performed | Pathologist | | | | | At | Signature | + + + + + + | Glucose, | 206 (H)Comment: Testing | 65 - 99 mg/dL | EXTERNAL | | | Fingerstick | performed at [facility];[address] | | LAB | | | | [address];[place], [place] | | | | | | [address] | | | | + + + + + + + + | Specimen | + + | | + + + +---------+ + + | Performing | Address | City/State/Zipcode | Phone Number | | Organization | | | | + +---------+ + + | EXTERNAL LAB | | | | + +---------+ + + POC Glucose (01/11/2017 6:26 AM PDT) + + + + + + | Component | Value | Ref Range | Performed | Pathologist | | | | | At | Signature | + + + + + + | Glucose, | 186 (H)Comment: Testing | 65 - 99 mg/dL | EXTERNAL | | | Fingerstick | performed at [facility];[address] | | LAB | | | | [address];[place], [place] | | | | | | [address] | | | | + + + + + + + + | Specimen | + + | | + + + +---------+ + + | Performing | Address | City/State/Zipcode | Phone Number | | Organization | | | | + +---------+ + + | EXTERNAL LAB | | | | + +---------+ + + Protime INR (01/11/2017 4:07 AM PDT) + + + + + + | Component | Value | Ref Range | Performed | Pathologist | | | | | At | Signature | + + + + + + | INR | 1.1Comment: REFERENCE | | EXTERNAL | | | | RANGE:0.9 - 1.2 | | LAB | | | | NON-ANTICOAGULATED2.0 | | | | | | - 3.0 ALL OTHER | | | | | | THERAPEUTIC | | | | | | INDICATIONS2.5 - 3.5 | | | | | | MECHANICAL HEART VALVES, | | | | | | RECURRENT OR SYSTEMIC | | | | | | EMBOLISMTesting | | | | | | performed at [facility];[address] | | | | | | [address];[place], [place] | | | | | | [address] | | | | + + + [...] + +---------+ + + External Lab: CBC (01/11/2017 4:07 AM PDT) + + + + + + | Component | Value | Ref Range | Performed | Pathologist | | | | | At | Signature | + + + + + + | WBC | 25.36 (H) | 3.80 - 11.00 | EXTERNAL | | | | | K/uL | LAB | | + + + + + + | RED CELL | 3.94 (L) | 4.20 - 5.70 | EXTERNAL | | | COUNT | | M/uL | LAB | | + + + + + + | Hgb | 11.3 (L) | 13.2 - 17.0 | EXTERNAL | | | | | g/dL | LAB | | + + + + + + | Hematocrit, | 33.5 (L) | 39.0 - 50.0 % | EXTERNAL | | | POC | | | LAB | | + + + + + + | MCV | 85.2 | 80.0 - 100.0 fl | EXTERNAL | | | | | | LAB | | + + + + + + | MCH | 28.7 | 27.0 - 34.0 pg | EXTERNAL | | | | | | LAB | | + + + + + + | MCHC | 33.7 | 32.0 - 35.5 | EXTERNAL | | | | | g/dL | LAB | | + + + + + + | RDW-CV | 43.3 | 37 - 53 fl | EXTERNAL | | | | | | LAB | | + + + + + + | Platelet | 222 | 150 - 400 K/uL | EXTERNAL | | | Count | | | LAB | | | Plasma | | | | | + + + + + + | MPV | 8.1 | fl | EXTERNAL | | | | | | LAB | | + + + + + + | Differentia | MANUAL | | EXTERNAL | | | l Type | | | LAB | | + + + + + + | Segmented | 83 | % | EXTERNAL | | | Neutrophils | | | LAB | | | Manual | | | | | + + + + + + | % Bands | 7 | % | EXTERNAL | | | | | | LAB | | + + + + + + | Lymphocytes | 4 | % | EXTERNAL | | | Manual | | | LAB | | + + + + + + | Monocytes | 6 | % | EXTERNAL | | | Manual | | | LAB | | + + + + + + | Absolute | 21.05 (H) | 1.90 - 7.40 | EXTERNAL | | | Neutrophils | | K/uL | LAB | | + + + + + + | Bands | 1.78 (H) | 0.00 - 0.20 | EXTERNAL | | | Manual | | K/uL | LAB | | + + + + + + | Absolute | 1.01 | 1.00 - 3.90 | EXTERNAL | | | Lymphocytes | | K/uL | LAB | | + + + + + + | Absolute | 1.52 (H) | 0.00 - 0.80 | EXTERNAL | | | Monocytes | | K/uL | LAB | | + + + + + + | RBC | RBC AND PLT MORPHOLOGY | | EXTERNAL | | | Morphology | APPEAR NORMALComment: | | LAB | | | | Testing performed at | | | | | | [facility], [address] | | | | | | [place] | | | | | | [address] | | | | + + + + + + + + | Specimen | + + | Blood specimen | | (specimen) | + + + +---------+ + + | Performing | Address | City/State/Zipcode | Phone Number | | Organization | | | | + +---------+ + + | EXTERNAL LAB | | | | + +---------+ + + Phosphorus (01/11/2017 4:07 AM PDT) + + + + + + | Component | Value | Ref Range | Performed | Pathologist | | | | | At | Signature | + + + + + + | PHOSPHORUS | 2.6Comment: SPECIMEN | 2.3 - 4.8 mg/dL | EXTERNAL | | | | SLIGHTLY | | LAB | | | | HEMOLYZEDTesting | | | | | | performed at [facility], [address] | | | | | | [address], | | | | | | [place] [address] | | | | + + + + + + + + | Specimen | + + | Blood specimen | | (specimen) | + + + +---------+ + + | Performing | Address | City/State/Zipcode | Phone Number | | Organization | | | | + +---------+ + + | EXTERNAL LAB | | | | + +---------+ + + Magnesium (01/11/2017 4:07 AM PDT) + + + + + + | Component | Value | Ref Range | Performed | Pathologist | | | | | At | Signature | + + + + + + | Magnesium | 2.5 (H)Comment: SPECIMEN | 1.7 - 2.4 mg/dL | EXTERNAL | | | | SLIGHTLY | | LAB | | | | HEMOLYZEDTesting | | | | | | performed at [facility], [address] | | | | | | [address], | | | | | | [place] [address] | | | | + + + [...] + +---------+ + + Basic Metabolic Panel (01/11/2017 4:07 AM PDT) + + + + + + | Component | Value | Ref Range | Performed | Pathologist | | | | | At | Signature | + + + + + + | Na | 137 | 135 - 145 | EXTERNAL | | | | | mmol/L | LAB | | + + + + + + | K | 4.8Comment: SPECIMEN | 3.5 - 4.9 | EXTERNAL | | | | SLIGHTLY HEMOLYZED | mmol/L | LAB | | + + + + + + | Cl | 103 | 99 - 109 mmol/L | EXTERNAL | | | | | | LAB | | + + + + + + | CO2 | 27 | 23 - 32 mmol/L | EXTERNAL | | | | | | LAB | | + + + + + + | Anion Gap | 12 | 5 - 20 mmol/L | EXTERNAL | | | | | | LAB | | + + + + + + | Glucose, | 185 (H)Comment: SPECIMEN | 65 - 99 mg/dL | EXTERNAL | | | Fasting | SLIGHTLY HEMOLYZED | | LAB | | + + + + + + | BUN | 13 | 8 - 25 mg/dL | EXTERNAL | | | | | | LAB | | + + + + + + | Creatinine | 0.8Comment: SPECIMEN | 0.70 - 1.30 | EXTERNAL | | | | SLIGHTLY HEMOLYZED | mg/dL | LAB | | + + + + + + | BUN/Creatin | 16 | | EXTERNAL | | | ine [...] BY | | | | | | 1.210.Testing performed | | | | | | at [facility], [address] | | | | | | [address], | | | | | | [place] [address] | | | | + + + + + + + + | Specimen | + + | Blood specimen | | (specimen) | + + + +---------+ + + | Performing | Address | City/State/Zipcode | Phone Number | | Organization | | | | + +---------+ + + | EXTERNAL LAB | | | | + +---------+ + + POC Glucose (01/11/2017 2:09 AM PDT) + + + + + + | Component | Value | Ref Range | Performed | Pathologist | | | | | At | Signature | + + + + + + | Glucose, | 241 (H)Comment: Testing | 65 - 99 mg/dL | EXTERNAL | | | Fingerstick | performed at [facility];[address] | | LAB | | | | [address];[place] | | | | | | [address] | | | | + + + + + + + + | Specimen | + + | | + + + +---------+ + + | Performing | Address | City/State/Zipcode | Phone Number | | Organization | | | | + +---------+ + + | EXTERNAL LAB | | | | + +---------+ + + POC Glucose (01/10/2017 10:22 PM PDT) + + + + + + | Component | Value | Ref Range | Performed | Pathologist | | | | | At | Signature | + + + + + + | Glucose, | 291 (H)Comment: Testing | 65 - 99 mg/dL | EXTERNAL | | | Fingerstick | performed at [facility];[address] | | LAB | | | | [address];[place], [place] | | | | | | [address] | | | | + + + + + + + + | Specimen | + + | | + + + +---------+ + + | Performing | Address | City/State/Zipcode | Phone Number | | Organization | | | | + +---------+ + + | EXTERNAL LAB | | | | + +---------+ + + POC Glucose (01/10/2017 6:44 PM PDT) + + + + + + | Component | Value | Ref Range | Performed | Pathologist | | | | | At | Signature | + + + + + + | Glucose, | 209 (H)Comment: Testing | 65 - 99 mg/dL | EXTERNAL | | | Fingerstick | performed at [facility];[address] | | LAB | | | | [address];[place] | | | | | | [address] | | | | + + + + + + + + | Specimen | + + | | + + + +---------+ + + | Performing | Address | City/State/Zipcode | Phone Number | | Organization | | | | + +---------+ + + | EXTERNAL LAB | | | | + +---------+ + + Potassium (01/10/2017 4:07 PM PDT) + + + + + + | Component | Value | Ref Range | Performed | Pathologist | | | | | At | Signature | + + + + + + | K | 3.8Comment: Testing | 3.5 - 4.9 | EXTERNAL | | | | performed at [facility];[address] | mmol/L | LAB | | | | [address];[place] | | | | | | [address] | | | | + + + + + + + + | Specimen | + + | Blood specimen | | (specimen) | + + + +---------+ + + | Performing | Address | City/State/Zipcode | Phone Number | | Organization | | | | + +---------+ + + | EXTERNAL LAB | | | | + +---------+ + + Phosphorus (01/10/2017 4:07 PM PDT) + + + + + + | Component | Value | Ref Range | Performed | Pathologist | | | | | At | Signature | + + + + + + | PHOSPHORUS | 3.9Comment: Testing | 2.3 - 4.8 mg/dL | EXTERNAL | | | | performed at [facility];[address] | | LAB | | | | [address];[place] | | | | | | [address] | | | | + + + + + + + + | Specimen | + + | Blood specimen | | (specimen) | + + + +---------+ + + | Performing | Address | City/State/Zipcode | Phone Number | | Organization | | | | + +---------+ + + | EXTERNAL LAB | | | | + +---------+ + + Magnesium (01/10/2017 4:07 PM PDT) + + + + + + | Component | Value | Ref Range | Performed | Pathologist | | | | | At | Signature | + + + + + + | Magnesium | 2.0Comment: Testing | 1.7 - 2.4 mg/dL | EXTERNAL | | | | performed at [facility];[address] | | LAB | | | | [address];[place], [place] | | | | | | [address] | | | | + + + + + + + + | Specimen | + + | Blood specimen | | (specimen) | + + + +---------+ + + | Performing | Address | City/State/Zipcode | Phone Number | | Organization | | | | + +---------+ + + | EXTERNAL LAB | | | | + +---------+ + + POC Glucose (01/10/2017 3:03 PM PDT) + + + + + + | Component | Value | Ref Range | Performed | Pathologist | | | | | At | Signature | + + + + + + | Glucose, | 116 (H)Comment: Testing | 65 - 99 mg/dL | EXTERNAL | | | Fingerstick | performed at [facility];[address] | | LAB | | | | [address];[place] | | | | | | [address] | | | | + + + + + + + + | Specimen | + + | | + + + +---------+ + + | Performing | Address | City/State/Zipcode | Phone Number | | Organization | | | | + +---------+ + + | EXTERNAL LAB | | | | + +---------+ + + POC Glucose (01/10/2017 12:58 PM PDT) + + + + + + | Component | Value | Ref Range | Performed | Pathologist | | | | | At | Signature | + + + + + + | Glucose, | 119 (H)Comment: Testing | 65 - 99 mg/dL | EXTERNAL | | | Fingerstick | performed at [facility];[address] | | LAB | | | | [address];[place], [place] | | | | | | [address] | | | | + + + + + + + + | Specimen | + + | | + + + +---------+ + + | Performing | Address | City/State/Zipcode | Phone Number | | Organization | | | | + +---------+ + + | EXTERNAL LAB | | | | + +---------+ + + POC Glucose (01/10/2017 9:35 AM PDT) + + + + + + | Component | Value | Ref Range | Performed | Pathologist | | | | | At | Signature | + + + + + + | Glucose, | 127 (H)Comment: Testing | 65 - 99 mg/dL | EXTERNAL | | | Fingerstick | performed at [facility];[address] | | LAB | | | | [address];[place] | | | | | | [address] | | | | + + + + + + + + | Specimen | + + | | + + + +---------+ + + | Performing | Address | City/State/Zipcode | Phone Number | | Organization | | | | + +---------+ + + | EXTERNAL LAB | | | | + +---------+ + + POC Glucose (01/10/2017 8:33 AM PDT) + + + + + + | Component | Value | Ref Range | Performed | Pathologist | | | | | At | Signature | + + + + + + | Glucose, | 121 (H)Comment: Testing | 65 - 99 mg/dL | EXTERNAL | | | Fingerstick | performed at [facility];[address] | | LAB | | | | [address];[place], [place] | | | | | | [address] | | | | + + + + + + + + | Specimen | + + | | + + + +---------+ + + | Performing | Address | City/State/Zipcode | Phone Number | | Organization | | | | + +---------+ + + | EXTERNAL LAB | | | | + +---------+ + + POC Glucose (01/10/2017 7:28 AM PDT) + + + + + + | Component | Value | Ref Range | Performed | Pathologist | | | | | At | Signature | + + + + + + | Glucose, | 121 (H)Comment: Testing | 65 - 99 mg/dL | EXTERNAL | | | Fingerstick | performed at [facility];[address] | | LAB | | | | [address];[place] | | | | | | [address] | | | | + + + + + + + + | Specimen | + + | | + + + +---------+ + + | Performing | Address | City/State/Zipcode | Phone Number | | Organization | | | | + +---------+ + + | EXTERNAL LAB | | | | + +---------+ + + POC Glucose (01/10/2017 6:23 AM PDT) + + + + + + | Component | Value | Ref Range | Performed | Pathologist | | | | | At | Signature | + + + + + + | Glucose, | 163 (H)Comment: Testing | 65 - 99 mg/dL | EXTERNAL | | | Fingerstick | performed at [facility];[address] | | LAB | | | | [place] | | | | | | [address] | | | | + + + + + + + + | Specimen | + + | | + + + +---------+ + + | Performing | Address | City/State/Zipcode | Phone Number | | Organization | | | | + +---------+ + + | EXTERNAL LAB | | | | + +---------+ + + POC Glucose (01/10/2017 4:53 AM PDT) + + + + + + | Component | Value | Ref Range | Performed | Pathologist | | | | | At | Signature | + + + + + + | Glucose, | 157 (H)Comment: Testing | 65 - 99 mg/dL | EXTERNAL | | | Fingerstick | performed at [facility];[address] | | LAB | | | | [address];[place] | | | | | | [address] | | | | + + + + + + + + | Specimen | + + | | + + + +---------+ + + | Performing | Address | City/State/Zipcode | Phone Number | | Organization | | | | + +---------+ + + | EXTERNAL LAB | | | | + +---------+ + + Protime INR (01/10/2017 4:33 AM PDT) + + + + + + | Component | Value | Ref Range | Performed | Pathologist | | | | | At | Signature | + + + + + + | INR | 1.1Comment: REFERENCE | | EXTERNAL | | | | RANGE:0.9 - 1.2 | | LAB | | | | NON-ANTICOAGULATED2.0 | | | | | | - 3.0 ALL OTHER | | | | | | THERAPEUTIC | | | | | | INDICATIONS2.5 - 3.5 | | | | | | MECHANICAL HEART VALVES, | | | | | | RECURRENT OR SYSTEMIC | | | | | | EMBOLISMTesting | | | | | | performed at [facility];[address] | | | | | | [address] [facility];[place], [place] | | | | | | [address] | | | | + + + + + + + + | Specimen | + + | Blood specimen | | (specimen) | + + + +---------+ + + | Performing | Address | City/State/Zipcode | Phone Number | | Organization | | | | + +---------+ + + | EXTERNAL LAB | | | | + +---------+ + + External Lab: IVY (01/10/2017 4:33 AM PDT) + + + + + + | Component | Value | Ref Range | Performed | Pathologist | | | | | At | Signature | + + + + + + | WBC | 15.91 (H) | 3.80 - 11.00 | EXTERNAL | | | | | K/uL | LAB | | + + + + + + | RED CELL | 3.93 (L) | 4.20 - 5.70 | EXTERNAL | | | COUNT | | M/uL | LAB | | + + + + + + | Hgb | 11.3 (L) | 13.2 - 17.0 | EXTERNAL | | | | | g/dL | LAB | | + + + + + + | Hematocrit, | 33.7 (L) | 39.0 - 50.0 % | EXTERNAL | | | POC | | | LAB | | + + + + + + | MCV | 85.8 | 80.0 - 100.0 fl | EXTERNAL | | | | | | LAB | | + + + + + + | MCH | 28.7 | 27.0 - 34.0 pg | EXTERNAL | | | | | | LAB | | + + + + + + | MCHC | 33.5 | 32.0 - 35.5 | EXTERNAL | | | | | g/dL | LAB | | + + + + + + | RDW-CV | 44.6 | 37 - 53 fl | EXTERNAL | | | | | | LAB | | + + + + + + | Platelet | 220 | 150 - 400 K/uL | EXTERNAL | | | Count | | | LAB | | | Plasma | | | | | + + + + + + | MPV | 8.1 | fl | EXTERNAL | | | | | | LAB | | + + + + + + | Differentia | MANUAL | | EXTERNAL | | | l Type | | | LAB | | + + + + + + | Segmented | 85 | % | EXTERNAL | | | Neutrophils | | | LAB | | | Manual | | | | | + + + + + + | % Bands | 7 | % | EXTERNAL | | | | | | LAB | | + + + + + + | Lymphocytes | 4 | % | EXTERNAL | | | Manual | | | LAB | | + + + + + + | Monocytes | 4 | % | EXTERNAL | | | Manual | | | LAB | | + + + + + + | Absolute | 13.52 (H) | 1.90 - 7.40 | EXTERNAL | | | Neutrophils | | K/uL | LAB | | + + + + + + | Bands | 1.11 (H) | 0.00 - 0.20 | EXTERNAL | | | Manual | | K/uL | LAB | | + + + + + + | Absolute | 0.64 (L) | 1.00 - 3.90 | EXTERNAL | | | Lymphocytes | | K/uL | LAB | | + + + + + + | Absolute | 0.64 | 0.00 - 0.80 | EXTERNAL | | | Monocytes | | K/uL | LAB | | + + + + + + | RBC | RBC AND PLT MORPHOLOGY | | EXTERNAL | | | Morphology | APPEAR NORMALComment: | | LAB | | | | Testing performed at | | | | | | [facility], [address] | | | | | | [place] | | | | | | [address] | | | | + + + + + + + + | Specimen | + + | Blood specimen | | (specimen) | + + + +---------+ + + | Performing | Address | City/State/Zipcode | Phone Number | | Organization | | | | + +---------+ + + | EXTERNAL LAB | | | | + +---------+ + + Phosphorus (01/10/2017 4:33 AM PDT) + + + + + + | Component | Value | Ref Range | Performed | Pathologist | | | | | At | Signature | + + + + + + | PHOSPHORUS | 1.8 (L)Comment: Testing | 2.3 - 4.8 mg/dL | EXTERNAL | | | | performed at [facility], [address] | | LAB | | | | [address], | | | | | | [place] [address] | | | | + + + + + + + + | Specimen | + + | Blood specimen | | (specimen) | + + + +---------+ + + | Performing | Address | City/State/Zipcode | Phone Number | | Organization | | | | + +---------+ + + | EXTERNAL LAB | | | | + +---------+ + + Magnesium (01/10/2017 4:33 AM PDT) + + + + + + | Component | Value | Ref Range | Performed | Pathologist | | | | | At | Signature | + + + + + + | Magnesium | 2.4Comment: Testing | 1.7 - 2.4 mg/dL | EXTERNAL | | | | performed at [facility], [address] | | LAB | | | | [address], | | | | | | [place] [address] | | | | + + + + + + + + | Specimen | + + | Blood specimen | | (specimen) | + + + +---------+ + + | Performing | Address | City/State/Zipcode | Phone Number | | Organization | | | | + +---------+ + + | EXTERNAL LAB | | | | + +---------+ + + Hemoglobin A1C (01/10/2017 4:33 AM PDT) + + + + + + | Component | Value | Ref Range | Performed | Pathologist | | | | | At | Signature | + + + + + + | Hemoglobin | 7.3 (H)Comment: The | 4.0 - 6.0 % | EXTERNAL | | | A1c | [facility] [employer] | | LAB | | | | Association considers a | | | | | | hemoglobin A1c result of | | | | | | <7.0% to be the goal of | | | | | | diabetic therapy. | | | | | | When results are | | | | | | consistently >8.0%, the | | | | | | ADA suggests | | | | | | reevaluation of the | | | | | | treatment regimen. The | | | | | | testing method used is | | | | | | certified traceable to | | | | | | the Diabetes Control and | | | | | | Complications Trial | | | | | | reference method. | | | | + + + + + + | Glycohemogl | 163Comment: The ADA | mg/dL | EXTERNAL | | | obin | considers an eAG result | | LAB | | | (GHb),Total | of LT 154 mg/dL to be | | | | | | the goal of diabetic | | | | | | therapy. Estimated | | | | | | Average Glucose | | | | | | calculated from | | | | | | hemoglobin A1c by use of | | | | | | the ADA recommended | | | | | | formula.Testing | | | | | | performed at [facility], [address] | | | | | | [facility], | | | | | | [place] [address] | | | | + + + [...] + +---------+ + + Basic Metabolic Panel (01/10/2017 4:33 AM PDT) + + + + + + | Component | Value | Ref Range | Performed | Pathologist | | | | | At | Signature | + + + + + + | Na | 142 | 135 - 145 | EXTERNAL | | | | | mmol/L | LAB | | + + + + + + | K | 3.7 | 3.5 - 4.9 | EXTERNAL | | | | | mmol/L | LAB | | + + + + + + | Cl | 108 | 99 - 109 mmol/L | EXTERNAL | | | | | | LAB | | + + + + + + | CO2 | 25 | 23 - 32 mmol/L | EXTERNAL | | | | | | LAB | | + + + + + + | Anion Gap | 13 | 5 - 20 mmol/L | EXTERNAL | | | | | | LAB | | + + + + + + | Glucose, | 166 (H) | 65 - 99 mg/dL | EXTERNAL | | | Fasting | | | LAB | | + + + + + + | BUN | 14 | 8 - 25 mg/dL | EXTERNAL | | | | | | LAB | | + + + + + + | Creatinine | 0.8 | 0.70 - 1.30 | EXTERNAL | | | | | mg/dL | LAB | | + + + + + + | BUN/Creatin | 18 | | EXTERNAL | | | ine Ratio | | | LAB | | + + + + + + | Calcium | 7.8 (L) | 8.5 - 10.5 | EXTERNAL | [...] BY | | | | | | 1.210.Testing performed | | | | | | at [facility], [address] | | | | | | [address], | | | | | | [place] [address] | | | | + + + + + + + + | Specimen | + + | Blood specimen | | (specimen) | + + + +---------+ + + | Performing | Address | City/State/Zipcode | Phone Number | | Organization | | | | + +---------+ + + | EXTERNAL LAB | | | | + +---------+ + + POC Glucose (01/10/2017 3:49 AM PDT) + + + + + + | Component | Value | Ref Range | Performed | Pathologist | | | | | At | Signature | + + + + + + | Glucose, | 164 (H)Comment: Testing | 65 - 99 mg/dL | EXTERNAL | | | Fingerstick | performed at [facility];[address] | | LAB | | | | [address];[place] | | | | | | [address] | | | | + + + + + + + + | Specimen | + + | | + + + +---------+ + + | Performing | Address | City/State/Zipcode | Phone Number | | Organization | | | | + +---------+ + + | EXTERNAL LAB | | | | + +---------+ + + POC Glucose (01/10/2017 2:46 AM PDT) + + + + + + | Component | Value | Ref Range | Performed | Pathologist | | | | | At | Signature | + + + + + + | Glucose, | 177 (H)Comment: Testing | 65 - 99 mg/dL | EXTERNAL | | | Fingerstick | performed at [facility];[address] | | LAB | | | | [address];[place], [place] | | | | | | [address] | | | | + + + + + + + + | Specimen | + + | | + + + +---------+ + + | Performing | Address | City/State/Zipcode | Phone Number | | Organization | | | | + +---------+ + + | EXTERNAL LAB | | | | + +---------+ + + POC Glucose (01/10/2017 1:43 AM PDT) + + + + + + | Component | Value | Ref Range | Performed | Pathologist | | | | | At | Signature | + + + + + + | Glucose, | 211 (H)Comment: Testing | 65 - 99 mg/dL | EXTERNAL | | | Fingerstick | performed at [facility];[address] | | LAB | | | | [address];[place] | | | | | | [address] | | | | + + + + + + + + | Specimen | + + | | + + + +---------+ + + | Performing | Address | City/State/Zipcode | Phone Number | | Organization | | | | + +---------+ + + | EXTERNAL LAB | | | | + +---------+ + + POC Glucose (01/10/2017 12:39 AM PDT) + + + + + + | Component | Value | Ref Range | Performed | Pathologist | | | | | At | Signature | + + + + + + | Glucose, | 210 (H)Comment: Testing | 65 - 99 mg/dL | EXTERNAL | | | Fingerstick | performed at [facility];[address] | | LAB | | | | [address];[place], [place] | | | | | | [address] | | | | + + + + + + + + | Specimen | + + | | + + + +---------+ + + | Performing | Address | City/State/Zipcode | Phone Number | | Organization | | | | + +---------+ + + | EXTERNAL LAB | | | | + +---------+ + + POC Glucose (01/09/2017 11:35 PM PDT) + + + + + + | Component | Value | Ref Range | Performed | Pathologist | | | | | At | Signature | + + + + + + | Glucose, | 274 (H)Comment: Testing | 65 - 99 mg/dL | EXTERNAL | | | Fingerstick | performed at [facility];[address] | | LAB | | | | [address];[place] | | | | | | [address] | | | | + + + + + + + + | Specimen | + + | | + + + +---------+ + + | Performing | Address | City/State/Zipcode | Phone Number | | Organization | | | | + +---------+ + + | EXTERNAL LAB | | | | + +---------+ + + POC Glucose (01/09/2017 10:23 PM PDT) + + + + + + | Component | Value | Ref Range | Performed | Pathologist | | | | | At | Signature | + + + + + + | Glucose, | 290 (H)Comment: Testing | 65 - 99 mg/dL | EXTERNAL | | | Fingerstick | performed at [facility];[address] | | LAB | | | | [place] | | | | | | [address] | | | | + + + + + + + + | Specimen | + + | | + + + +---------+ + + | Performing | Address | City/State/Zipcode | Phone Number | | Organization | | | | + +---------+ + + | EXTERNAL LAB | | | | + +---------+ + + MRI Cervical Spine wo Contrast (01/09/2017 9:56 PM PDT) + + | Specimen | + + | | + + + + + | Impressions | Performed At | + + + | Posterior instrumentation from C3-T2. Interval widening of the | | | C6-C7 disk space, this is at the level of fracture in this patient | | | with ankylosing spondylitis. Examination slightly limited by the | | | implanted hardware, however, the central canal is patent throughout. | | | No evidence of intraspinal hematoma. Region of T2 signal | | | prolongation and mild swelling within the right cervical cord centered | | | at the C3-C4 level. Finding is new when compared to the prior MR and | | | is consistent with recent injury. [facility] The above findings | | | were discussed with Dr. Parikh by Dr. Artemio Riddle at 00:42 hrs | | | on 01/10/17. Electronically signed by Artemio Riddle MD on January 10 | | | 2016 12:50AM Referring Provider Line: [phone] ID: [id number] | | + + + + + + | Narrative | Performed At | + + + | EXAM: MRI CERVICAL SPINE WITHOUT CONTRAST EXAM DATE: 01/09/2017 | | | 09:57 PM. CLINICAL HISTORY: Right sided weakness. Recent fusion | | | surgery for fracture, ankylosing spondylitis. COMPARISONS: CT | | | angiogram 01/09/2017, preoperative MRI 01/07/2017.. TECHNIQUE: | | | Multiplanar, multisequence T1-weighted and fluid-sensitive sequences | | | of the cervical spine without contrast. Other: None. FINDINGS: | | | Neurologic Structures: There is a region of T2 signal prolongation and | | | slight swelling seen within the right cervical cord. This measures 20 | | | mm craniocaudal by 5 x 5 mm. This is centered at the C3-C4 level. | | | Alignment: No scoliosis or spondylolisthesis. Bone Marrow: No | | | gross fractures or bone lesions. No marrow edema. There is a T2 signal | | | prolongation within the C6-C7 disk space which is widened when | | | compared to the preoperative study. Disk space measures 7 mm | | | craniocaudal, previously 3 mm. Interspace Levels/Facets: | | | Posterior instrumentation from C3-T2 bilaterally. Interval widening of | | | the C6-C7 disk space. Central canal is patent throughout. No | | | intraspinal hematoma. There are changes of ankylosing spondylitis as | | | before. Musculature: Expected postoperative change Other: | | | Expected postoperative change. There is a surgical drain dorsal to the | | | fusion hardware. Patient is intubated. Left thyroid mass, unchanged. | | | | | + + + + + | Procedure Note | + + | Markell, Rad Conversion - 04/05/2019 11:44 PM PDT EXAM:MRI CERVICAL SPINE WITHOUT | | CONTRAST EXAM DATE: 01/09/2017 09:57 PM. CLINICAL HISTORY: Right sided weakness. Recent | | fusion surgery for fracture, ankylosing spondylitis. COMPARISONS: CT angiogram | | 01/09/2017, preoperative MRI 01/07/2017.. TECHNIQUE: Multiplanar, multisequence | | T1-weighted and fluid-sensitive sequences of the cervical spine without contrast. Other: | | None. FINDINGS:Neurologic Structures: There is a region of T2 signal prolongation and | | slight swelling seen within the right cervical cord. This measures 20 mm craniocaudal by | | 5 x 5 mm. This is centered at the C3-C4 level. Alignment: No scoliosis or | | spondylolisthesis. Bone Marrow: No gross fractures or bone lesions. No marrow edema. | | There is a T2 signal prolongation within the C6-C7 disk space which is widened when | | compared to the preoperative study. Disk space measures 7 mm craniocaudal, previously 3 | | mm. Interspace Levels/Facets:Posterior instrumentation from C3-T2 bilaterally. Interval | | widening of the C6-C7 disk space. Central canal is patent throughout. No intraspinal | | hematoma. There are changes of ankylosing spondylitis as before. Musculature: Expected | | postoperative change Other: Expected postoperative change. There is a surgical drain | | dorsal to the fusion hardware. Patient is intubated. Left thyroid mass, unchanged. | | IMPRESSION: Posterior instrumentation from C3-T2. Interval widening of the C6-C7 disk | | space, this is at the level of fracture in this patient with ankylosing spondylitis. | | Examination slightly limited by the implanted hardware, however, the central canal is | | patent throughout. No evidence of intraspinal hematoma. Region of T2 signal prolongation | | and mild swelling within the right cervical cord centered at the C3-C4 level. Finding | | is new when compared to the prior MR and is consistent with recent injury. RADIA The | | above findings were discussed with Dr. Parikh by Dr. Artemio Riddle at 00:42 hrs on | | 01/10/17. Electronically signed by Artemio Riddle MD on Jan 10 2017 12:50AM Referring | | Provider Line: [phone] ID: [id number] | |IMPRESSION: | | | |Posterior instrumentation from C3-T2. Interval widening of the C6-C7 disk space, this is at the level of fracture in this patient with ankylosing spondylitis. Examination slightly cam ited by the implanted hardware, however, the central canal is patent | |throughout. No evidence of intraspinal hematoma. | | | |Region of T2 signal prolongation and mild swelling within the right cervical cord centered at the C3-C4 level. Finding is new when compared to the prior MR and is consistent with rece nt injury. | | | |RADIA | | | |The above findings were discussed with Dr. Parikh by Dr. Artemio Riddle at 00:42 hrs on . | | | | Electronically signed by Artemio Riddle MD on Jan 10 2017 12:50AM Referring Provider Line: [phone] ID: [id number] | + + MRI Brain wo Contrast (01/09/2017 9:39 PM PDT) + + | Specimen | + + | | + + + + + | Impressions | Performed At | + + + | Intraventricular and subarachnoid gas, the appearance is similar to | | | the prior CT. No evidence of intracranial hemorrhage or recent | | | infarct. RADIA Electronically signed by Artemio Riddle MD on | | | Jan 10 2017 12:26AM Referring Provider Line: [phone] ID: [id number] | | + + + + + + | Narrative | Performed At | + + + | EXAM: MRI BRAIN WITHOUT CONTRAST EXAM DATE: 01/09/2017 09:40 PM. | | | CLINICAL HISTORY: Right sided weakness. Recent cervical spine | | | fusion surgery. COMPARISON: CT angiogram 01/09/2017. | | | TECHNIQUE: Multiplanar, multisequence T1-weighted and fluid-sensitive | | | MR sequences of the brain were performed. Sequences optimized for | | | routine evaluation. Other: None. IV Contrast: None. FINDINGS: | | | Appropriate CSF spaces for age. Intracranial gas is present. There | | | is gas seen within the left frontal horn, right sylvian fissure, | | | interhemispheric fissure and within the basal cisterns, prepontine and | | | right andreia-medullary cistern. The appearance is similar to the prior | | | CT. Intracranial gas is causing mild degrees of artifact. | | | Examination is also mildly degraded by motion. No space-occupying | | | lesion, intracranial hemorrhage, extracerebral fluid collection, | | | hydrocephalus or evidence of recent infarct. | | + + + + + | Procedure Note | + + | Vamsi Guillaume Conversion - 04/05/2019 11:44 PM PDT EXAM:MRI BRAIN WITHOUT CONTRAST EXAM | | DATE: 01/09/2017 09:40 PM. CLINICAL HISTORY: Right sided weakness. Recent cervical spine | | fusion surgery. COMPARISON: CT angiogram 01/09/2017. TECHNIQUE: Multiplanar, | | multisequence T1-weighted and fluid-sensitive MR sequences of the brain were performed. | | Sequences optimized for routine evaluation. Other: None. IV Contrast: None. | | FINDINGS:Appropriate CSF spaces for age. Intracranial gas is present. There is gas seen | | within the left frontal horn, right sylvian fissure, interhemispheric fissure and within | | the basal cisterns, prepontine and right andreia-medullary cistern. The appearance is | | similar to the prior CT. Intracranial gas is causing mild degrees of artifact. | | Examination is also mildly degraded by motion. No space-occupying lesion, intracranial | | hemorrhage, extracerebral fluid collection, hydrocephalus or evidence of recent infarct. | | IMPRESSION: Intraventricular and subarachnoid gas, the appearance is similar to the | | prior CT. No evidence of intracranial hemorrhage or recent infarct. RADIA | | Electronically signed by Artemio Riddle MD on Jan 10 2017 12:26AM Referring Provider Line: | | [phone] ID: [id number] | | | |Intracranial gas is causing mild degrees of artifact. Examination is also mildly degraded b y motion. | | | |No space-occupying lesion, intracranial hemorrhage, extracerebral fluid collection, hydroce phalus or evidence of recent infarct. | | | |IMPRESSION: | |Intraventricular and subarachnoid gas, the appearance is similar to the prior CT. No eviden ce of intracranial hemorrhage or recent infarct. | | | |RADIA | | | | Electronically signed by Artemio Riddle MD on Jan 10 2017 12:26AM Referring Provider Line: [phone] ID: [id number] | + + XR Chest 1 Vw (01/09/2017 7:30 PM PDT) + + | Specimen | + + | | + + + + + | Impressions | Performed At | + + + | 1. Status post intubation and nasogastric tube placement, as | | | above. 2. Increasing bilateral basilar subsegmental atelectasis. | | | 3. Status post spine fusion, with hardware partially | | | visualized. Electronically signed by Arthur Rodriguez MD on | | | 01/09/2017 7:26 PM | | + + + + + + | Narrative | Performed At | + + + | [facility]ALK[facility] XR CHEST 1 VIEW 01/09/2017 7:19 PM HISTORY: | | | Assessment for life-support lines and tubes. TECHNIQUE: AP chest | | | radiograph 1915 hours. COMPARISON: Chest radiograph January 06, 2017. | | | FINDINGS: Endotracheal tube is newly seen, 6.5 cm from the | | | pamela. Lower cervical spine fusion hardware is partially visualized. | | | A surgical drain overlies the upper chest in the midline. Strandy | | | bilateral opacities are seen at the lung bases, increasing. No | | | pneumothorax is present. The cardiac silhouette and pulmonary | | | vasculature are normal. A nasogastric tube is seen, the tip in the | | | gastric body. | | + + + + + | Procedure Note | + + | Markell, Rad Conversion - 04/05/2019 11:44 PM PDT [facility]ONTAN[facility] CHEST 1 VIEW01/09/2017 | | 7:19 PM HISTORY:Assessment for life-support lines and tubes. TECHNIQUE:AP chest | | radiograph 1915 hours. COMPARISON:Chest radiograph January 06, 2017. FINDINGS:Endotracheal | | tube is newly seen, 6.5 cm from the pamela. Lower cervical spine fusion hardware is | | partially visualized. A surgical drain overlies the upper chest in the midline. Strandy | | bilateral opacities are seen at the lung bases, increasing. No pneumothorax is present. | | The cardiac silhouette and pulmonary vasculature are normal. A nasogastric tube is seen, | | the tip in the gastric body. IMPRESSION: 1. Status post intubation and nasogastric | | tube placement, as above. 2. Increasing bilateral basilar subsegmental atelectasis. 3. | | Status post spine fusion, with hardware partially visualized. | |Chest radiograph January 06, 2017. | | | |FINDINGS: | |Endotracheal tube is newly seen, 6.5 cm from the pamela. Lower cervical spine fusion hardwa re is partially visualized. A surgical drain overlies the upper chest in the midline. Strand y bilateral opacities are seen at the lung bases, increasing. No | |pneumothorax is present. The cardiac silhouette and pulmonary vasculature are normal. A hao ogastric tube is seen, the tip in the gastric body. | | | |IMPRESSION: | |1. Status post intubation and nasogastric tube placement, as above. | | | |2. Increasing bilateral basilar subsegmental atelectasis. | | | |3. Status post spine fusion, with hardware partially visualized. | | | | | + + MRSA NAAT (01/09/2017 6:55 PM PDT) + + | Specimen | + + | | + + + + + | Narrative | Performed At | + + + | SOURCE NARES(NOSE) MRSA | EXTERNAL LAB | | PCR NEGATIVE Testing | | | performed at [facility];[address] [place] [address];[place] [address] | | + + + + +---------+ + + | Performing | Address | City/State/Zipcode | Phone Number | | Organization | | | | + +---------+ + + | EXTERNAL LAB | | | | + +---------+ + + Gram Stain, reflex Sputum Culture (01/09/2017 6:44 PM PDT) + + | Specimen | + + | | + + + + + | Narrative | Performed At | + + + | Specimen Description SPUTUM GRAM STAIN | EXTERNAL LAB | | GREATER THAN 10 WBCS/LPF | | | LESS THAN 10 SEC/LPF | | | 1+ | | | GRAM POSITIVE COCCI | | | CULTURE 1+ | | | NORMAL UPPER | | | RESPIRATORY BILLY | | + + + + +---------+ + + | Performing | Address | City/State/Zipcode | Phone Number | | Organization | | | | + +---------+ + + | EXTERNAL LAB | | | | + +---------+ + + External Lab: CBC (01/09/2017 6:25 PM PDT) + + + + + + | Component | Value | Ref Range | Performed | Pathologist | | | | | At | Signature | + + + + + + | WBC | 18.34 (H) | 3.80 - 11.00 | EXTERNAL | | | | | K/uL | LAB | | + + + + + + | RED CELL | 4.17 (L) | 4.20 - 5.70 | EXTERNAL | | | COUNT | | M/uL | LAB | | + + + + + + | Hgb | 12.3 (L) | 13.2 - 17.0 | EXTERNAL | | | | | g/dL | LAB | | + + + + + + | Hematocrit, | 35.6 (L) | 39.0 - 50.0 % | EXTERNAL | | | POC | | | LAB | | + + + + + + | MCV | 85.4 | 80.0 - 100.0 fl | EXTERNAL | | | | | | LAB | | + + + + + + | MCH | 29.6 | 27.0 - 34.0 pg | EXTERNAL | | | | | | LAB | | + + + + + + | MCHC | 34.7 | 32.0 - 35.5 | EXTERNAL | | | | | g/dL | LAB | | + + + + + + | RDW-CV | 43.3 | 37 - 53 fl | EXTERNAL | | | | | | LAB | | + + + + + + | Platelet | 219 | 150 - 400 K/uL | EXTERNAL | | | Count | | | LAB | | | Plasma | | | | | + + + + + + | MPV | 7.5 | fl | EXTERNAL | | | | | | LAB | | + + + + + + | Differentia | AUTOMATED | | EXTERNAL | | | l Type | | | LAB | | + + + + + + | % Segmented | 95.37 | % | EXTERNAL | | | | | | LAB | | | Neutrophils | | | | | + + + + + + | % | 2.90 | % | EXTERNAL | | | Lymphocytes | | | LAB | | + + + + + + | % Monocytes | 1.55 | % | EXTERNAL | | | | | | LAB | | + + + + + + | % | 0.03 | % | EXTERNAL | | | Eosinophils | | | LAB | | + + + + + + | % Basophils | 0.15 | % | EXTERNAL | | | | | | LAB | | + + + + + + | Absolute | 17.49 (H) | 1.90 - 7.40 | EXTERNAL | | | Segmented | | K/uL | LAB | | | Neutrophils | | | | | + + + + + + | Absolute | 0.53 (L) | 1.00 - 3.90 | EXTERNAL | | | Lymphocytes | | K/uL | LAB | | + + + + + + | Absolute | 0.28 | 0.00 - 0.80 | EXTERNAL | | | Monocytes | | K/uL | LAB | | + + + + + + | Absolute | 0.01 | 0.00 - 0.50 | EXTERNAL | | | Eosinophils | | K/uL | LAB | | + + + + + + | Absolute | 0.03 | 0.00 - 0.10 | EXTERNAL | | | Basophils | | K/uL | LAB | | + + + + + + | RBC | RBC AND PLT MORPHOLOGY | | EXTERNAL | | | Morphology | APPEAR NORMAL | | LAB | | + + + + + + | Differentia | SLIDE SCANNED, AGREES | | EXTERNAL | | | l Comments | WITH AUTOMATED | | LAB | | | | RESULTS.Comment: Testing | | | | | | performed at [facility];[address] | | | | | [address];[place], [place] | | | | | | [address] | | | | + + + + + + + + | Specimen | + + | Blood specimen | | (specimen) | + + + +---------+ + + | Performing | Address | City/State/Zipcode | Phone Number | | Organization | | | | + +---------+ + + | EXTERNAL LAB | | | | + +---------+ + + Phosphorus (01/09/2017 6:25 PM PDT) + + + + + + | Component | Value | Ref Range | Performed | Pathologist | | | | | At | Signature | + + + + + + | PHOSPHORUS | 3.6Comment: Testing | 2.3 - 4.8 mg/dL | EXTERNAL | | | | performed at [facility] | | LAB | | | | [address];[place] | | | | | | [address] | | | | + + + + + + + + | Specimen | + + | Blood specimen | | (specimen) | + + + +---------+ + + | Performing | Address | City/State/Zipcode | Phone Number | | Organization | | | | + +---------+ + + | EXTERNAL LAB | | | | + +---------+ + + Magnesium (01/09/2017 6:25 PM PDT) + + + + + + | Component | Value | Ref Range | Performed | Pathologist | | | | | At | Signature | + + + + + + | Magnesium | 2.2Comment: Testing | 1.7 - 2.4 mg/dL | EXTERNAL | | | | performed at [facility];[address] | | LAB | | | | [address];[place], [place] | | | | | | [address] | | | | + + + + + + + + | Specimen | + + | Blood specimen | | (specimen) | + + + +---------+ + + | Performing | Address | City/State/Zipcode | Phone Number | | Organization | | | | + +---------+ + + | EXTERNAL LAB | | | | + +---------+ + + Calcium, Ionized (01/09/2017 6:25 PM PDT) + + + + + + | Component | Value | Ref Range | Performed | Pathologist | | | | | At | Signature | + + + + + + | Calcium | 0.98 (L) | 1.08 - 1.25 | EXTERNAL | | | (Calc) | | mmol/L | LAB | | + + + + + + | pH, Bld | 7.367Comment: Testing | 7.300 - 7.450 | EXTERNAL | | | | performed at [facility];[address] | | [address] | | | [address];[place], [place] | | | | | | [address] | | | | + + + + + + + + | Specimen | + + | Blood specimen | | (specimen) | + + + +---------+ + + | Performing | Address | City/State/Zipcode | Phone Number | | Organization | | | | + +---------+ + + | EXTERNAL LAB | | | | + +---------+ + + Comprehensive Metabolic Panel (01/09/2017 6:25 PM PDT) + + + + + + | Component | Value | Ref Range | Performed | Pathologist | | | | | At | Signature | + + + + + + | Na | 138 | 135 - 145 | EXTERNAL | | | | | mmol/L | LAB | | + + + + + + | K | 5.0 (H) | 3.5 - 4.9 | EXTERNAL | | | | | mmol/L | LAB | | + + + + + + | Cl | 105 | 99 - 109 mmol/L | EXTERNAL | | | | | | LAB | | + + + + + + | CO2 | 26 | 23 - 32 mmol/L | EXTERNAL | | | | | | LAB | | + + + + + + | Anion Gap | 11 | 5 - 20 mmol/L | EXTERNAL | | | | | | LAB | | + + + + + + | Glucose, | 270 (H) | 65 - 99 mg/dL | EXTERNAL | | | Fasting | | | LAB | | + + + + + + | BUN | 15 | 8 - 25 mg/dL | EXTERNAL | | | | | | LAB | | + + + + + + | Creatinine | 0.96 | 0.70 - 1.30 | EXTERNAL | | | | | mg/dL | LAB | | + + + + + + | BUN/Creatin | 16 | | EXTERNAL | | | ine Ratio | | | LAB | | + + + + + + | Calcium | 7.1 (L) | 8.5 - 10.5 | EXTERNAL | | | | | mg/dL | LAB | | + + + + + + | Protein, | 5.9 (L) | 6.3 - 8.2 g/dL | EXTERNAL | | | Total | | | LAB | | + + + + + + | Albumin | 2.7 (L) | 3.3 - 4.8 g/dL | EXTERNAL | | | | | | LAB | | + + + + + + | Globulin | 3.2 | 1.3 - 4.9 g/dL | EXTERNAL | | | | | | LAB | | + + + + + + | A/G Ratio | 0.8 (L) | 1.0 - 2.4 | EXTERNAL | | | | | | LAB | | + + + + + + | Bilirubin | 1.1 | 0.1 - 1.5 mg/dL | EXTERNAL | | | Total | | | LAB | | + + + + + + | ALP, | 61 | 35 - 115 U/L | EXTERNAL | | | External | | | LAB | | + + + + + + | AST | 43 | 10 - 45 U/L | EXTERNAL | | | | | | LAB | | + + + + + + | ALT | 42 | 10 - 65 U/L | EXTERNAL [...] BY | | | | | | 1.210.Testing performed | | | | | | at [facility];[address] [place] [address] | | | | | | [facility];[place] [address] | | | | + + + + + + + + | Specimen | + + | Blood specimen | | (specimen) | + + + +---------+ + + | Performing | Address | City/State/Zipcode | Phone Number | | Organization | | | | + +---------+ + + | EXTERNAL LAB | | | | + +---------+ + + CT Angiogram Head and Neck w Contrast (01/09/2017 5:57 PM PDT) + + | Specimen | + + | | + + + + + | Impressions | Performed At | + + + | 1. Right T1 posterior elements screw extends into the right T1-T2 | | | neural foramen. 2. Small tentorial subdural hematoma | | | bilaterally. 3. Probable postoperative pneumocephalus, as above. | | | 4. No evidence of hemodynamically significant arterial stenosis | | | in the neck or head. 5. C6-C7 fracture, as above, with intact | | | fusion from C3 to T2, in this patient with evidence of ankylosing | | | spondylitis. Electronically signed by Arthur Rodriguez MD on | | | 01/09/2017 6:49 PM | | + + + + + + | Narrative | Performed At | + + + | JOSE RAFAEL WALKER 1950 66 years Male CTA HEAD NECK W WO | | | CONTRAST 01/09/2017 5:57 PM INDICATION: Status post cervical | | | spinal fusion. Ankylosing spondylitis. Weakness. COMPARISON: Neck | | | CT January 07, 2017. TECHNIQUE: 5-mm axial pre-contrast and | | | post-contrast images of the head were acquired from the foramen magnum | | | through the cranial vertex. Axial 0.625-mm images were acquired from | | | the skull base to the cranial vertex and then axial 1.25 mm arterial | | | phase images were acquired through the neck according to a CT | | | angiography protocol. Multiplanar CT angiographic MIP reconstructions | | | were performed. The data set was also examined with [employer] 3D | | | software for evaluation of the cerebral vasculature. Automated | | | exposure control utilized. IV contrast: 100 mL IsoVue 370 | | | FINDINGS: CT HEAD: Extra-axial pneumocephalus, anterior to the | | | joanie, and the basilar cisterns, and the right sylvian fissure, in the | | | interhemispheric fissure, and the left ventricle. No acute infarct is | | | seen. A small amount of subdural blood is seen in the bilateral | | | tentorial regions on the noncontrast study. No intracranial mass or | | | hydrocephalus is observed. No orbital abnormalities are seen. An | | | anterior left maxillary sinus wall fracture is again seen. Hematomas | | | overlie the orbits anteriorly. Mucosal thickening is present within | | | the bilateral maxillary sinuses with trace dependent fluid in the | | | maxillary sinuses. Trace dependent fluid is seen in the frontal | | | sinuses. CT ANGIOGRAM HEAD: The vertebral arteries and basilar | | | arteries are patent. The basilar artery and basilar arterial branches | | | including the posterior cerebral arteries are patent. The internal | | | carotid arteries, middle cerebral, and anterior cerebral arteries | | | are patent. No intracranial arterial aneurysm is found. CTA NECK: | | | A standard three-vessel aortic arch is seen. The innominate artery, | | | subclavian arteries, bilateral vertebral arteries, and bilateral | | | common carotid arteries are widely patent. The proximal right ICA | | | measures 9.6 mm diameter, within normal reference measurement of 9.6 | | | mm corresponding to a 0% NASCET stenosis. The proximal left ICA | | | measures 8.7 mm diameter with a normal reference measurement of 8.7 mm | | | corresponding to a 0% NASCET stenosis. The external carotid arteries | | | are widely patent. CT NECK: There is evidence of posterior fusion | | | from C3 to T2. The hardware is intact. The right T1 posterior element | | | screws extends into the right T1-T2 neural foramen, perhaps best seen | | | on image 84, series 27, and image 21 series 24. Otherwise, no | | | evidence of hardware encroachment in the neural foramina or spinal | | | canal. A fracture is present at C6-C7, with anterior intervertebral | | | displacement measuring 10 mm. This fracture extends posteriorly | | | through the posterior elements. There is unchanged evidence of | | | ankylosing spondylitis with ankylosis of the anterior vertebral | | | column. Surgical drainage catheter posterior to the operative site | | | with some postoperative gas. An endotracheal tube is present, | | | well-positioned. | | + + + + + | Procedure Note | + + | Vamsi Guillaume - 04/05/2019 11:44 PM ENZO Vega [facility] years MaleCTA | | HEAD NECK W WO CONTRAST01/09/2017 5:57 PM INDICATION: Status post cervical spinal | | fusion. Ankylosing spondylitis. Weakness. COMPARISON: Neck CT January 07, 2017. | | TECHNIQUE:5-mm axial pre-contrast and post-contrast images of the head were acquired | | from the foramen magnum through the cranial vertex. Axial 0.625-mm images were acquired | | from the skull base to the cranial vertex and then axial 1.25 mm arterial phase images | | were acquired through the neck according to a CT angiography protocol. Multiplanar CT | | angiographic MIP reconstructions were performed. The data set was also examined with | | [employer] 3D software for evaluation of the cerebral vasculature. Automated exposure | | control utilized.IV contrast: 100 mL IsoVue 370 FINDINGS: CT HEAD:Extra-axial | | pneumocephalus, anterior to the joanie, and the basilar cisterns, and the right sylvian | | fissure, in the interhemispheric fissure, and the left ventricle. No acute infarct is | | seen. A small amount of subdural blood is seen in the bilateral tentorial regions on the | | noncontrast study. No intracranial mass or hydrocephalus is observed. No orbital | | abnormalities are seen. An anterior left maxillary sinus wall fracture is again seen. | | Hematomas overlie the orbits anteriorly. Mucosal thickening is present within the | | bilateral maxillary sinuses with trace dependent fluid in the maxillary sinuses. Trace | | dependent fluid is seen in the frontal sinuses. CT ANGIOGRAM HEAD: The vertebral | | arteries and basilar arteries are patent. The basilar artery and basilar arterial | | branches including the posterior cerebral arteries are patent. The internal carotid | | arteries, middle cerebral, and anterior cerebral arteries are patent. No intracranial | | arterial aneurysm is found. CTA NECK: A standard three-vessel aortic arch is seen. The | | innominate artery, subclavian arteries, bilateral vertebral arteries, and bilateral | | common carotid arteries are widely patent. The proximal right ICA measures 9.6 mm | | diameter, within normal reference measurement of 9.6 mm corresponding to a 0% NASCET | | stenosis. The proximal left ICA measures 8.7 mm diameter with a normal reference | | measurement of 8.7 mm corresponding to a 0% NASCET stenosis. The external carotid | | arteries are widely patent. CT NECK: There is evidence of posterior fusion from C3 to | | T2. The hardware is intact. The right T1 posterior element screws extends into the right | | T1-T2 neural foramen, perhaps best seen on image 84, series 27, and image 21 series 24. | | Otherwise, no evidence of hardware encroachment in the neural foramina or spinal canal. | | A fracture is present at C6-C7, with anterior intervertebral displacement measuring 10 | | mm. This fracture extends posteriorly through the posterior elements. There is unchanged | | evidence of ankylosing spondylitis with ankylosis of the anterior vertebral column. | | Surgical drainage catheter posterior to the operative site with some postoperative gas. | | An endotracheal tube is present, well-positioned. IMPRESSION: 1. Right T1 posterior | | elements screw extends into the right T1-T2 neural foramen. 2. Small tentorial subdural | | hematoma bilaterally. 3. Probable postoperative pneumocephalus, as above. 4. No | | evidence of hemodynamically significant arterial stenosis in the neck or head. 5. | | C6-C7 fracture, as above, with intact fusion from C3 to T2, in this patient with | | evidence of ankylosing spondylitis. Electronically signed by Arthur Rodriguez MD on | | 01/09/2017 6:49 PM | |4. No evidence of hemodynamically significant arterial stenosis in the neck or head. | | | |5. C6-C7 fracture, as above, with intact fusion from C3 to T2, in this patient with evide nce of ankylosing spondylitis. | | | | | + + POC Glucose (01/09/2017 5:49 PM PDT) + + + + + + | Component | Value | Ref Range | Performed | Pathologist | | | | | At | Signature | + + + + + + | Glucose, | 241 (H)Comment: Testing | 65 - 99 mg/dL | EXTERNAL | | | Fingerstick | performed at [facility];[address] | | LAB | | | | [address];[place], [place] | | | | | | [address] | | | | + + + + + + + + | Specimen | + + | | + + + +---------+ + + | Performing | Address | City/State/Zipcode | Phone Number | | Organization | | | | + +---------+ + + | EXTERNAL LAB | | | | + +---------+ + + FL C-Arm > 1 Hour (01/09/2017 3:43 PM PDT) + + | Specimen | + + | | + + + + + | Impressions | Performed At | + + + | 1. Procedural films, as above. | | + + + + + + | Narrative | Performed At | + + + | [facility] C-ARM FLUORO OVER 1 HOUR 01/09/2017 3:43 PM | | | HISTORY: Spine surgery. TECHNIQUE: Cervical spine 4 views using | | | C-arm technique. FINDINGS: Limited fluoroscopic films demonstrate | | | a posterior fusion from C3 to approximately T2 with incorporation of | | | pedicle screws and connecting rods. There appears to be bony ankylosis | | | suggesting ankylosing spondylitis. There may been a laminectomy | | | performed as well. | | + + + + + | Procedure Note | + + | Vamsi Guillaume - 04/05/2019 11:44 PM PDT [facility]ALK[facility] C-ARM FLUORO OVER 1 | | HOUR01/09/2017 3:43 PM HISTORY:Spine surgery. TECHNIQUE:Cervical spine 4 views using | | C-arm technique. FINDINGS:Limited fluoroscopic films demonstrate a posterior fusion from | | C3 to approximately T2 with incorporation of pedicle screws and connecting rods. There | | appears to be bony ankylosis suggesting ankylosing spondylitis. There may been a | | laminectomy performed as well. IMPRESSION: 1. Procedural films, as above. | | | |TECHNIQUE: | |Cervical spine 4 views using C-arm technique. | | | |FINDINGS: | |Limited fluoroscopic films demonstrate a posterior fusion from C3 to approximately T2 with incorporation of pedicle screws and connecting rods. There appears to be bony ankylosis sugg esting ankylosing spondylitis. | |There may been a laminectomy performed | |as well. | | | |IMPRESSION: | |1. Procedural films, as above. | | | | | + + POC RACHELE VANN8, Arterial (01/09/2017 2:59 PM PDT) + + + + + + | Component | Value | Ref Range | Performed | Pathologist | | | | | At | Signature | + + + + + + | PH ART | 7.335 (L) | 7.350 - 7.450 | EXTERNAL | | | | | | LAB | | + + + + + + | PCO2 ART | 45 | 35 - 45 mmHg | EXTERNAL | | | | | | LAB | | + + + + + + | PO2 ART | 201 (H) | 80 - 105 mmHg | EXTERNAL | | | | | | LAB | | + + + + + + | HCO3 ART | 24 | 22 - 26 mmol/L | EXTERNAL | | | | | | LAB | | + + + + + + | POC | 25 | 23 - 27 mEq/L | EXTERNAL | | | APPEARANCE | | | LAB | | | UA | | | | | + + + + + + | Base | 2 | 0.0 - 2.0 | EXTERNAL | | | deficit | | mmol/L | LAB | | + + + + + + | O2 SAT ART | 100 (H) | 95 - 98 % | EXTERNAL | | | | | | LAB | | + + + + + + | Sodium, POC | 139 | 135 - 145 mEq/L | EXTERNAL | | | | | | LAB | | + + + + + + | Potassium, | 4.3 | 3.5 - 5.0 mEq/L | EXTERNAL | | | POC | | | LAB | | + + + + + + | Ionized | 0.93 (L) | 1.12 - 1.32 | EXTERNAL | | | Calcium, | | mmol/L | LAB | | | POC | | | | | + + + + + + | Glucose, | 238 (H) | 65 - 99 mg/dL | EXTERNAL | | | POC | | | LAB | | + + + + + + | Hematocrit, | 36 (L) | 40.0 - 50.0 % | EXTERNAL | | | POC | | | LAB | | + + + + + + | Hemoglobin, | 12.2 (L)Comment: Testing | 13.7 - 16.7 | EXTERNAL | | | POC | performed at [facility];888 | g/dL | LAB | | | | [address];[place] | | | | | | [address] | | | | + + + + + + + + | Specimen | + + | | + + + +---------+ + + | Performing | Address | City/State/Zipcode | Phone Number | | Organization | | | | + +---------+ + + | EXTERNAL LAB | | | | + +---------+ + + LORETTA VANN CG8 Arterial (01/09/2017 12:12 PM PDT) + + + + + + | Component | Value | Ref Range | Performed | Pathologist | | | | | At | Signature | + + + + + + | PH ART | 7.348 (L) | 7.350 - 7.450 | EXTERNAL | | | | | | LAB | | + + + + + + | PCO2 ART | 41 | 35 - 45 mmHg | EXTERNAL | | | | | | LAB | | + + + + + + | PO2 ART | 205 (H) | 80 - 105 mmHg | EXTERNAL | | | | | | LAB | | + + + + + + | HCO3 ART | 23 | 22 - 26 mmol/L | EXTERNAL | | | | | | LAB | | + + + + + + | POC | 24 | 23 - 27 mEq/L | EXTERNAL | | | APPEARANCE | | | LAB | | | UA | | | | | + + + + + + | Base | 3 (H) | 0.0 - 2.0 | EXTERNAL | | | deficit | | mmol/L | LAB | | + + + + + + | O2 SAT ART | 100 (H) | 95 - 98 % | EXTERNAL | | | | | | LAB | | + + + + + + | Sodium, POC | 141 | 135 - 145 mEq/L | EXTERNAL | | | | | | LAB | | + + + + + + | Potassium, | 3.7 | 3.5 - 5.0 mEq/L | EXTERNAL | | | POC | | | LAB | | + + + + + + | Ionized | 0.92 (L) | 1.12 - 1.32 | EXTERNAL | | | Calcium, | | mmol/L | LAB | | | POC | | | | | + + + + + + | Glucose, | 185 (H) | 65 - 99 mg/dL | EXTERNAL | | | POC | | | LAB | | + + + + + + | Hematocrit, | 31 (L) | 40.0 - 50.0 % | EXTERNAL | | | POC | | | LAB | | + + + + + + | Hemoglobin, | 10.5 (L)Comment: Testing | 13.7 - 16.7 | EXTERNAL | | | POC | performed at [facility];888 | g/dL | LAB | | | | [address];[place] | | | | | | [address] | | | | + + + + + + + + | Specimen | + + | | + + + +---------+ + + | Performing | Address | City/State/Zipcode | Phone Number | | Organization | | | | + +---------+ + + | EXTERNAL LAB | | | | + +---------+ + + POC SOO CG8, Arterial (01/09/2017 11:07 AM PDT) + + + + + + | Component | Value | Ref Range | Performed | Pathologist | | | | | At | Signature | + + + + + + | PH ART | 7.343 (L) | 7.350 - 7.450 | EXTERNAL | | | | | | LAB | | + + + + + + | PCO2 ART | 41 | 35 - 45 mmHg | EXTERNAL | | | | | | LAB | | + + + + + + | PO2 ART | 196 (H) | 80 - 105 mmHg | EXTERNAL | | | | | | LAB | | + + + + + + | HCO3 ART | 22 | 22 - 26 mmol/L | EXTERNAL | | | | | | LAB | | + + + + + + | POC | 24 | 23 - 27 mEq/L | EXTERNAL | | | APPEARANCE | | | LAB | | | UA | | | | | + + + + + + | Base | 3 (H) | 0.0 - 2.0 | EXTERNAL | | | deficit | | mmol/L | LAB | | + + + + + + | O2 SAT ART | 100 (H) | 95 - 98 % | EXTERNAL | | | | | | LAB | | + + + + + + | Sodium, POC | 140 | 135 - 145 mEq/L | EXTERNAL | | | | | | LAB | | + + + + + + | Potassium, | 3.7 | 3.5 - 5.0 mEq/L | EXTERNAL | | | POC | | | LAB | | + + + + + + | Ionized | 1.00 (L) | 1.12 - 1.32 | EXTERNAL | | | Calcium, | | mmol/L | LAB | | | POC | | | | | + + + + + + | Glucose, | 165 (H) | 65 - 99 mg/dL | EXTERNAL | | | POC | | | LAB | | + + + + + + | Hematocrit, | 35 (L) | 40.0 - 50.0 % | EXTERNAL | | | POC | | | LAB | | + + + + + + | Hemoglobin, | 11.9 (L)Comment: Testing | 13.7 - 16.7 | EXTERNAL | | | POC | performed at [facility];888 | g/dL | LAB | | | | [address];[place], [place] | | | | | | [address] | | | | + + + + + + + + | Specimen | + + | | + + + +---------+ + + | Performing | Address | City/State/Zipcode | Phone Number | | Organization | | | | + +---------+ + + | EXTERNAL LAB | | | | + +---------+ + + POC Glucose (01/09/2017 6:19 AM PDT) + + + + + + | Component | Value | Ref Range | Performed | Pathologist | | | | | At | Signature | + + + + + + | Glucose, | 221 (H)Comment: Testing | 65 - 99 mg/dL | EXTERNAL | | | Fingerstick | performed at [facility];[address] | | LAB | | | | [address];[place], [place] | | | | | | [address] | | | | + + + + + + + + | Specimen | + + | | + + + +---------+ + + | Performing | Address | City/State/Zipcode | Phone Number | | Organization | | | | + +---------+ + + | EXTERNAL LAB | | | | + +---------+ + + Type and Screen (01/09/2017 4:43 AM PDT) + + + + + + | Component | Value | Ref Range | Performed | Pathologist | | | | | At | Signature | + + + + + + | ABO Rh | A POSITIVE | | EXTERNAL | | | | | | LAB | | + + + + + + | Antibody | NEGATIVE | | EXTERNAL | | | Screen | | | LAB | | + + + + + + | BB BAND | [id number] | | EXTERNAL | | | | | | LAB | | + + + + + + | UNIT NUMBER | [id number] | | EXTERNAL | | | | | | LAB | | + + + + + + | Product | [facility] | | EXTERNAL | | | Code | | | LAB | | + + + + + + | Unit | 00 | | EXTERNAL | | | Division | | | LAB | | + + + + + + | Unit Status | ISSUED,FINAL | | EXTERNAL | | | | | | LAB | | + + + + + + | Transfusion | OK TO TRANSFUSE | | EXTERNAL | | | Status | | | LAB | | + + + + + + | CROSSMATCH | COMPATIBLE | | EXTERNAL | | | RESULT | | | LAB | | + + + + + + | UNIT NUMBER | [id number] | | EXTERNAL | | | | | | LAB | | + + + + + + | Product | [facility] | | EXTERNAL | | | Code | | | LAB | | + + + + + + | Unit | 00 | | EXTERNAL | | | Division | | | LAB | | + + + + + + | Unit Status | ISSUED,FINAL | | EXTERNAL | | | | | | LAB | | + + + + + + | Transfusion | OK TO TRANSFUSE | | EXTERNAL | | | Status | | | LAB | | + + + + + + | CROSSMATCH | COMPATIBLE | | EXTERNAL | | | RESULT | | | LAB | | + + + + + + | UNIT NUMBER | [id number] | | EXTERNAL | | | | | | LAB | | + + + + + + | Product | [facility] | | EXTERNAL | | | Code | | | LAB | | + + + + + + | Unit | 00 | | EXTERNAL | | | Division | | | LAB | | + + + + + + | Unit Status | REL FROM ALLOC | | EXTERNAL | | | | | | LAB | | + + + + + + | Transfusion | OK TO TRANSFUSE | | EXTERNAL | | | Status | | | LAB | | + + + + + + | CROSSMATCH | COMPATIBLETesting | | EXTERNAL | | | RESULT | performed at [facility];[address] | | LAB | | | | [address];[place], [place] | | | | | | [address] | | | | + + + + + + | UNIT NUMBER | [id number] | | EXTERNAL | | | | | | LAB | | + + + + + + | Product | [facility] | | EXTERNAL | | | Code | | | LAB | | + + + + + + | Unit | 00 | | EXTERNAL | | | Division | | | LAB | | + + + + + + | Unit Status | REL FROM ALLOC | | EXTERNAL | | | | | | LAB | | + + + + + + | Transfusion | OK TO TRANSFUSE | | EXTERNAL | | | Status | | | LAB | | + + + + + + | CROSSMATCH | COMPATIBLE | | EXTERNAL | | | RESULT | | | LAB | | + + + + + + + + | Specimen | + + | Blood specimen | | (specimen) | + + + +---------+ + + | Performing | Address | City/State/Zipcode | Phone Number | | Organization | | | | + +---------+ + + | EXTERNAL LAB | | | | + +---------+ + + Protime INR (01/09/2017 4:43 AM PDT) + + + + + + | Component | Value | Ref Range | Performed | Pathologist | | | | | At | Signature | + + + + + + | INR | 1.2Comment: REFERENCE | | EXTERNAL | | | | RANGE:0.9 - 1.2 | | LAB | | | | NON-ANTICOAGULATED2.0 | | | | | | - 3.0 ALL OTHER | | | | | | THERAPEUTIC | | | | | | INDICATIONS2.5 - 3.5 | | | | | | MECHANICAL HEART VALVES, | | | | | | RECURRENT OR SYSTEMIC | | | | | | EMBOLISMTesting | | | | | | performed at [facility] | | | | | | [facility];[place], [place] | | | | | | [address] | | | | + + + + + + + + | Specimen | + + | Blood specimen | | (specimen) | + + + +---------+ + + | Performing | Address | City/State/Zipcode | Phone Number | | Organization | | | | + +---------+ + + | EXTERNAL LAB | | | | + +---------+ + + POC Glucose (01/08/2017 9:02 PM PDT) + + + + + + | Component | Value | Ref Range | Performed | Pathologist | | | | | At | Signature | + + + + + + | Glucose, | 268 (H)Comment: Testing | 65 - 99 mg/dL | EXTERNAL | | | Fingerstick | performed at [facility];[address] | | LAB | | | | [address];[place] | | | | | | [address] | | | | + + + + + + + + | Specimen | + + | | + + + +---------+ + + | Performing | Address | City/State/Zipcode | Phone Number | | Organization | | | | + +---------+ + + | EXTERNAL LAB | | | | + +---------+ + + POC Glucose (01/08/2017 4:05 PM PDT) + + + + + + | Component | Value | Ref Range | Performed | Pathologist | | | | | At | Signature | + + + + + + | Glucose, | 202 (H)Comment: Testing | 65 - 99 mg/dL | EXTERNAL | | | Fingerstick | performed at [facility];[address] | | LAB | | | | [address];[place] | | | | | | [address] | | | | + + + + + + + + | Specimen | + + | | + + + +---------+ + + | Performing | Address | City/State/Zipcode | Phone Number | | Organization | | | | + +---------+ + + | EXTERNAL LAB | | | | + +---------+ + + POC Glucose (01/08/2017 11:23 AM PDT) + + + + + + | Component | Value | Ref Range | Performed | Pathologist | | | | | At | Signature | + + + + + + | Glucose, | 205 (H)Comment: Testing | 65 - 99 mg/dL | EXTERNAL | | | Fingerstick | performed at [facility];[address] | | LAB | | | | [address];[place] | | | | | | [address] | | | | + + + + + + + + | Specimen | + + | | + + + +---------+ + + | Performing | Address | City/State/Zipcode | Phone Number | | Organization | | | | + +---------+ + + | EXTERNAL LAB | | | | + +---------+ + + Protime INR (01/08/2017 6:25 AM PDT) + + + + + + | Component | Value | Ref Range | Performed | Pathologist | | | | | At | Signature | + + + + + + | INR | 1.5Comment: REFERENCE | | EXTERNAL | | | | RANGE:0.9 - 1.2 | | LAB | | | | NON-ANTICOAGULATED2.0 | | | | | | - 3.0 ALL OTHER | | | | | | THERAPEUTIC | | | | | | INDICATIONS2.5 - 3.5 | | | | | | MECHANICAL HEART VALVES, | | | | | | RECURRENT OR SYSTEMIC | | | | | | EMBOLISMTesting | | | | | | performed at [facility];[address] | | | | | | [address] [facility];[place], [place] | | | | | | [address] | | | | + + + + + + + + | Specimen | + + | Blood specimen | | (specimen) | + + + +---------+ + + | Performing | Address | City/State/Zipcode | Phone Number | | Organization | | | | + +---------+ + + | EXTERNAL LAB | | | | + +---------+ + + POC Glucose (01/08/2017 5:26 AM PDT) + + + + + + | Component | Value | Ref Range | Performed | Pathologist | | | | | At | Signature | + + + + + + | Glucose, | 158 (H)Comment: Testing | 65 - 99 mg/dL | EXTERNAL | | | Fingerstick | performed at [facility];[address] | | LAB | | | | [address];[place] | | | | | | [address] | | | | + + + + + + + + | Specimen | + + | | + + + +---------+ + + | Performing | Address | City/State/Zipcode | Phone Number | | Organization | | | | + +---------+ + + | EXTERNAL LAB | | | | + +---------+ + + POC Glucose (01/08/2017 12:03 AM PDT) + + + + + + | Component | Value | Ref Range | Performed | Pathologist | | | | | At | Signature | + + + + + + | Glucose, | 212 (H)Comment: Testing | 65 - 99 mg/dL | EXTERNAL | | | Fingerstick | performed at [facility];[address] | | LAB | | | | [address] [facility];[place], [place] | | | | | | [address] | | | | + + + + + + + + | Specimen | + + | | + + + +---------+ + + | Performing | Address | City/State/Zipcode | Phone Number | | Organization | | | | + +---------+ + + | EXTERNAL LAB | | | | + +---------+ + + POC Glucose (01/07/2017 5:41 PM PDT) + + + + + + | Component | Value | Ref Range | Performed | Pathologist | | | | | At | Signature | + + + + + + | Glucose, | 190 (H)Comment: Testing | 65 - 99 mg/dL | EXTERNAL | | | Fingerstick | performed at [facility];[address] | | LAB | | | | [address];[place] | | | | | | [address] | | | | + + + + + + + + | Specimen | + + | | + + + +---------+ + + | Performing | Address | City/State/Zipcode | Phone Number | | Organization | | | | + +---------+ + + | EXTERNAL LAB | | | | + +---------+ + + XR Shoulder Right 2 + Vw (01/07/2017 1:46 PM PDT) + + | Specimen | + + | | + + + + + | Impressions | Performed At | + + + | FINDINGS/ IMPRESSION: 1. No acute fracture or dislocation. 2. 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 3. Osteopenia. | | + + + + + + | Narrative | Performed At | + + + | JOSE RAFA[facility] WALKER 1950 XR SHOULDER RIGHT 01/07/2017 1:46 PM | | | INDICATION: Pain COMPARISON: None. TECHNIQUE: Right shoulder | | | series, 3 views Limitations: Technique. | | + + + + + | Procedure Note | + + | Vamsi Guillaume Conversion - 04/05/2019 11:44 PM PDT [facility] | | 1950 | | XR SHOULDER RIGHT | | 01/07/2017 1:46 PM | | | | INDICATION: Pain | | | | COMPARISON: None. | | | | TECHNIQUE: Right shoulder series, 3 views | | | | Limitations: Technique. | | | | IMPRESSION: | | FINDINGS/ IMPRESSION: | | 1. No acute fracture or dislocation. | | 2. 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 | | 3. Osteopenia. | | | | | + + CK-MB (01/07/2017 11:44 AM PDT) + + + + + -+ | Component | Value | Ref Range | Performed | Pathologist | | | | | At | Signature | + + + + + -+ | CK-MB | 2.1 | 0.5 - 3.6 ng/mL | EXTERNAL | | | | | | LAB | | + + + + + -+ | CK-MB Index | 0.7Comment: CK INDEX | | EXTERNAL | | | | INTERPRETATION: | | LAB | | | | MMB ng/mL | | | | | | | | | | | |CK INDEX INTERPRETATION: | | | | | | MMB ng/mL | | | | | | | | | | + + + + + -+ + + | Specimen | + + | | + + + +---------+ + + | Performing | Address | City/State/Zipcode | Phone Number | | Organization | | | | + +---------+ + + | EXTERNAL LAB | | | | + +---------+ + + Troponin I (01/07/2017 11:44 AM PDT) + + + + + + | Component | Value | Ref Range | Performed | Pathologist | | | | | At | Signature | + + + + + + | Troponin I, | <0.020Comment: 0.00 to | 0.00 - 0.10 | EXTERNAL | | | Qual | 0.10 CONSISTENT WITH | ng/mL | LAB | | | | NORMAL POPULATION0.11 | | | | | | to 0.60 CONSISTENT | | | | | | WITH INCREASED RISK FOR | | | | | | ADVERSE OUTCOMES> 0.60 | | | | | | CONSISTENT | | | | | | WITH WHO CRITERIA FOR | | | | | | ACUTE MA Testing | | | | | | performed at [facility];[address] | | | | | | [address];[place], [place] | | | | | | [address] | | | | + + + + + + + + | Specimen | + + | Blood specimen | | (specimen) | + + + +---------+ + + | Performing | Address | City/State/Zipcode | Phone Number | | Organization | | | | + +---------+ + + | EXTERNAL LAB | | | | + +---------+ + + CK Total (01/07/2017 11:44 AM PDT) + + + + + + | Component | Value | Ref Range | Performed | Pathologist | | | | | At | Signature | + + + + + + | CK, Total | 299Comment: SLT | 55 - 400 U/L | EXTERNAL | | | | HEMOLYSISTesting | | LAB | | | | performed at [facility];[address] | | | | | | [address];[place], [place] | | | | | | [address] | | | | + + + + + + + + | Specimen | + + | Blood specimen | | (specimen) | + + + +---------+ + + | Performing | Address | City/State/Zipcode | Phone Number | | Organization | | | | + +---------+ + + | EXTERNAL LAB | | | | + +---------+ + + POC Glucose (01/07/2017 11:37 AM PDT) + + + + + + | Component | Value | Ref Range | Performed | Pathologist | | | | | At | Signature | + + + + + + | Glucose, | 151 (H)Comment: Testing | 65 - 99 mg/dL | EXTERNAL | | | Fingerstick | performed at [facility];[address] | | LAB | | | | [address];[place], [place] | | | | | | [address] | | | | + + + + + + + + | Specimen | + + | | + + + +---------+ + + | Performing | Address | City/State/Zipcode | Phone Number | | Organization | | | | + +---------+ + + | EXTERNAL LAB | | | | + +---------+ + + CT Angiogram Neck w Contrast (01/07/2017 10:11 AM PDT) + + | Specimen | + + | | + + + + | Addenda | + + | Addendum by Raf Donnelly DO on 02/12/2017 1:36 PM Addendum for billing | | purposes only. NASCET criteria was used to determine the degree of carotid stenosis | | were applicable. | + + + + + | Impressions | Performed At | + + + | 1. No evidence of significant hemodynamic stenosis, aneurysm, or | | | dissection involving the carotid arteries in the neck. 2. Depressed | | | fracture of the anterior wall of the left maxillary sinus with | | | overlying soft tissue swelling and emphysema. Electronically | | | signed by Raf Donnelly on 01/07/2017 11:05 AM | | + + + + + + | Narrative | Performed At | + + + | JOSE RAFAEL WALKER 1950 66 years Male CTA NECK W WO CONTRAST | | | 01/07/2017 10:11 AM HISTORY: Trauma COMPARISON: CT head | | | 01/06/2017 TECHNIQUE: Axial 1.25 mm arterial phase images were | | | acquired through the neck according to a CT angiography protocol. | | | Multiplanar CT angiographic MIP reconstructions were performed from | | | the arterial phase data set by the senior medical technologist. Dose reduction | | | techniques were used including automated exposure control, iterative | | | reconstruction technique, and/or automated adjustable mAs based on | | | patient size. IV contrast: 100 mL IsoVue 370 FINDINGS: A large | | | thyroid nodule is present on the left measuring up to 3.7 cm in size. | | | The right common carotid artery is patent from its origin to its | | | bifurcation, without evidence of significant hemodynamic stenosis or | | | dissection. The right internal carotid artery is patent from its | | | origin through the neck. There is mild calcified plaque involving | | | the proximal right internal carotid artery, without significant | | | stenosis. The left common carotid artery is patent from its origin | | | to the bifurcation, without significant hemodynamic stenosis or | | | evidence of aneurysm or dissection. The left internal carotid artery | | | is widely patent through the neck. There is mild calcified | | | atherosclerosis involving the proximal left internal carotid artery, | | | without significant hemodynamic stenosis. The vertebral arteries | | | are patent bilaterally and codominant without evidence of dissection. | | | Depressed fracture the anterior wall of the left maxillary sinus | | | is demonstrated with overlying soft tissue swelling and emphysema. | | | There is subcutaneous gas within the soft tissues of the left cheek as | | | well extending into the cellophane wrapping examiner space Fracture is depressed | | | approximately 6 mm. There is an air-fluid level within the left | | | maxillary sinus which is hyperdense likely representing hemorrhage. | | | External note is made of pseudoarticulation of the coracoid | | | processes with the clavicles bilaterally with the appearance of | | | erosive changes (series 6B, image 57). There is ankylosis of the | | | cervical spine also noted. | | + + + + + | Procedure Note | + + | Markell, Rad Conversion - 04/05/2019 11:44 PM PDT JOSE RAFAEL Vega HALL years MaleCTA | | NECK W WO CONTRAST01/07/2017 10:11 AM HISTORY: Trauma COMPARISON: CT head 01/06/2017 | | TECHNIQUE:Axial 1.25 mm arterial phase images were acquired through the neck according | | to a CT angiography protocol. Multiplanar CT angiographic MIP reconstructions were | | performed from the arterial phase data set by the senior medical technologist. Dose reduction | | techniques were used including automated exposure control, iterative reconstruction | | technique, and/or automated adjustable mAs based on patient size.IV contrast: 100 mL | | IsoVue 370 FINDINGS: A large thyroid nodule is present on the left measuring up to 3.7 | | cm in size. The right common carotid artery is patent from its origin to its | | bifurcation, without evidence of significant hemodynamic stenosis or dissection. The | | right internal carotid artery is patent from its origin through the neck. There is mild | | calcified plaque involving the proximal right internal carotid artery, without | | significant stenosis. The left common carotid artery is patent from its origin to the | | bifurcation, without significant hemodynamic stenosis or evidence of aneurysm or | | dissection. The left internal carotid artery is widely patent through the neck. There is | | mild calcified atherosclerosis involving the proximal left internal carotid artery, | | without significant hemodynamic stenosis. The vertebral arteries are patent bilaterally | | and codominant without evidence of dissection. Depressed fracture the anterior wall of | | the left maxillary sinus is demonstrated with overlying soft tissue swelling and | | emphysema. There is subcutaneous gas within the soft tissues of the left cheek as well | | extending into the cellophane wrapping examiner space Fracture is depressed approximately 6 mm. There is | | an air-fluid level within the left maxillary sinus which is hyperdense likely | | representing hemorrhage. External note is made of pseudoarticulation of the coracoid | | processes with the clavicles bilaterally with the appearance of erosive changes (series | | 6B, image 57). There is ankylosis of the cervical spine also noted. IMPRESSION: 1. No | | evidence of significant hemodynamic stenosis, aneurysm, or dissection involving the | | carotid arteries in the neck.2. Depressed fracture of the anterior wall of the left | | maxillary sinus with overlying soft tissue swelling and emphysema. | |is depressed approximately 6 mm. There is an air-fluid level within the left maxillary sinu s which is hyperdense likely representing hemorrhage. | | | |External note is made of pseudoarticulation of the coracoid processes with the clavicles bi laterally with the appearance of erosive changes (series 6B, image 57). There is ankylosis o f the cervical spine also noted. | | | |IMPRESSION: | |1. No evidence of significant hemodynamic stenosis, aneurysm, or dissection involving the carotid arteries in the neck. | |2. Depressed fracture of the anterior wall of the left maxillary sinus with overlying soft tissue swelling and emphysema. | | | | | + + CT Thoracolumbar wo Contrast (01/07/2017 10:11 AM PDT) + + | Specimen | + + | | + + + + + | Impressions | Performed At | + + + | 1. Diffuse ankylosis of the spine. No evidence of acute fracture | | | or traumatic subluxation. If there is continued concern for acute | | | fracture or ligamentous injury, consider further evaluation with MRI. | | | 2. Minimal compression of the superior endplate of L1 which is age | | | indeterminate. | | | 11:13 AM | | + + + + + + | Narrative | Performed At | + + + | JOSE RAFAEL WALKER 1950 [address] THORACIC LUMBAR WO CONTRAST 01/07/2017 | | | 10:11 AM INDICATION: Trauma COMPARISON: CT cervical spine | | | 01/06/2017 TECHNIQUE: CT scan of the thoracic and lumbar spine | | | without IV contrast. 1.5 mm thick helically acquired axial images are | | | obtained with coronal and sagittal reconstructed images. Dose | | | reduction techniques were used including automated exposure control, | | | iterative reconstruction technique, and/or automated adjustable mAs | | | based on patient size. FINDINGS: There is ankylosis demonstrated | | | throughout the visualized portions of the thoracic and lumbar spine. | | | Ankylosis is also noted at the SI joints bilaterally. Bone | | | mineralization is decreased, limiting osseous detail. There is minimal | | | wedging of the superior endplate of L1 which is age indeterminate. | | | Remaining vertebral bodies maintain appropriate height. There are | | | zones of neural foraminal stenosis demonstrated in the mid to lower | | | spine most pronounced at T9-T10 on the left (series 6B, image 35). | | | No convincing evidence of acute fracture is identified. No | | | significant prevertebral soft tissue swelling is seen. There are | | | bilateral hip prostheses. Hypoventilatory changes and subsegmental | | | zones of atelectasis are demonstrated within the lung bases. There is | | | a 6 mm subsolid nodular opacity seen within the right middle lobe | | | (series 5, image 55). | | + + + + + | Procedure Note | + + | Markell, Rad Conversion - 04/05/2019 11:44 PM PDT JOSE RAFAEL WALKER1950 THORACIC | | LUMBAR WO CONTRAST01/07/2017 10:11 AM INDICATION: Trauma COMPARISON: CT cervical spine | | 01/06/2017 TECHNIQUE: CT scan of the thoracic and lumbar spine without IV contrast. 1.5 | | mm thick helically acquired axial images are obtained with coronal and sagittal | | reconstructed images. Dose reduction techniques were used including automated exposure | | control, iterative reconstruction technique, and/or automated adjustable mAs based on | | patient size. FINDINGS: There is ankylosis demonstrated throughout the visualized | | portions of the thoracic and lumbar spine. Ankylosis is also noted at the SI joints | | bilaterally. Bone mineralization is decreased, limiting osseous detail. There is minimal | | wedging of the superior endplate of L1 which is age indeterminate. Remaining vertebral | | bodies maintain appropriate height. There are zones of neural foraminal stenosis | | demonstrated in the mid to lower spine most pronounced at T9-T10 on the left (series 6B, | | image 35). No convincing evidence of acute fracture is identified. No significant | | prevertebral soft tissue swelling is seen. There are bilateral hip prostheses. | | Hypoventilatory changes and subsegmental zones of atelectasis are demonstrated within | | the lung bases. There is a 6 mm subsolid nodular opacity seen within the right middle | | lobe (series 5, image 55). IMPRESSION: 1. Diffuse ankylosis of the spine. No evidence | | of acute fracture or traumatic subluxation. If there is continued concern for acute | | fracture or ligamentous injury, consider further evaluation with MRI.2. Minimal | | compression of the superior endplate of L1 which is age indeterminate. Electronically | | signed by Raf Donnelly on 01/07/2017 11:13 AM | |Hypoventilatory changes and subsegmental zones of atelectasis are demonstrated within the l michell bases. There is a 6 mm subsolid nodular opacity seen within the right middle lobe (serie s 5, image 55). | | | |IMPRESSION: | |1. Diffuse ankylosis of the spine. No evidence of acute fracture or traumatic subluxation. If there is continued concern for acute fracture or ligamentous injury, consider further ev aluation with MRI. | |2. Minimal compression of the superior endplate of L1 which is age indeterminate. | | | | | + + Culture, Urine (01/07/2017 7:52 AM PDT) + + | Specimen | + + | Urine specimen | | (specimen) | + + + + + | Narrative | Performed At | + + + | Specimen Description CATHETERIZED URINE | EXTERNAL LAB | | CULTURE NO GROWTH | | + + + + +---------+ + + | Performing | Address | City/State/Zipcode | Phone Number | | Organization | | | | + +---------+ + + | EXTERNAL LAB | | | | + +---------+ + + Echo Limited (01/07/2017 7:09 AM PDT) + + | Specimen | + + | | + + + + + | Impressions | Performed At | + + + | 1. The left ventricle is normal in size, mild concentric hypertrophy | | | and hyperdynamic systolic function EF >70%. 2. The right ventricle | | | is moderately enlarged with normal systolic function. 3. The aortic | | | valve is mildly calcified with mild aortic regurgitation. 4. There is | | | no pericardial effusion. | | + + + + + + | Narrative | Performed At | + + + | Patient Name: JOSE RAFAEL WALKER Date of : 1950 | | | Performing Physician: Leoncio Oshea | | | | | | INDICATIONS abn ekg, pt flat due to spinal injury | | | CONCLUSIONS 1. The left ventricle is normal in size, | | | mild concentric hypertrophy and hyperdynamic systolic function EF | | | >70%. 2. The right ventricle is moderately enlarged with normal | | | systolic function. 3. The aortic valve is mildly calcified with mild | | | aortic regurgitation. 4. There is no pericardial effusion. | | | FINDINGS -------- [no group]: Doppler was limited due to image | | | quality and angle. ECG rhythm: Sinus rhythm. Study: A limited | | | 2-dimensional transthoracic echocardiogram with limited spectral and | | | color flow Doppler was performed. Study: This was a technically | | | difficult study with suboptimal views. Left Ventricle: Left | | | ventricular systolic function is hyperdynamic with an estimated EF of | | | >70%. Left Ventricle: The left ventricle cavity size is normal. Left | | | Ventricle: There is mild concentric left ventricular hypertrophy. | | | Right Ventricle: The right ventricle is moderately enlarged. Right | | | Ventricle: The right ventricular systolic function is normal. Left | | | Atrium: The left atrium was not well visualized. Right Atrium: The | | | right atrium was not well visualized. Aortic Valve: The aortic valve | | | is trileaflet. Aortic Valve: The aortic valve is mildly calcified. | | | Aortic Valve: There is mild aortic regurgitation. Mitral Valve: The | | | mitral valve is normal. Tricuspid Valve: The tricuspid valve appears | | | structurally normal. Pulmonic Valve: The pulmonic valve was not well | | | visualized. Pericardium: There is no pericardial effusion. | | | Pericardium: No pleural effusion seen. IVC/Hepatic Veins: The IVC was | | | not well visualized. MEASUREMENTS ELLA Planimetry: | | | 2.43 cm2 AVAI Planimetry: 0.00 cm2/m2 RA Area: 27.57 cm2 | | | Ao asc: 3.90 cm Ao sinus: 3.[address] junct: 3.52 cm | | | EDV(Teich): 73.19 ml IVSd: 1.24 cm LVIDd: 4.07 cm LVPWd: | | | 1.21 cm LVOT Diam: 2.26 cm %FS: 43.08 % EF(Teich): | | | 74.69 % ESV(Teich): 18.51 ml IVSs: 1.43 cm LVIDs: 2.31 cm | | | LVPWs: 1.43 cm SV(Teich): 54.67 ml Ao Diam: 4.05 cm AV | | | Cusp: 1.84 cm LA Diam: 3.72 cm LA/Ao: 0.91 D-E Excursion: | | | 1.21 cm E-F Gooding: 0.03 m/s EPSS: 0.99 cm HR: 75.39 BPM | | | AV maxP.18 mmHg AV meanP.31 mmHg AV Vmax: 2.18 | | | m/s AV Vmean: 1.41 m/s AV VTI: 40.05 cm ELLA Vmax: 1.74 cm2 | | | ELLA (VTI): 1.94 cm2 AVAI Vmax: 0.00 cm2/m2 AVAI (VTI): | | | 0.00 cm2/m2 LVCI Dopp: 2.59 l/minm2 LVCO Dopp: 5.90 l/min HR: | | | 75.72 BPM LVOT maxP.58 mmHg LVOT meanP.60 mmHg | | | LVSI Dopp: 34.21 ml/m2 LVSV Dopp: 78.01 ml LVOT Vmax: 0.94 | | | m/s LVOT Vmean: 0.58 m/s LVOT VTI: 19.33 cm MV A Ervin: 1.04 | | | m/s MV DecT: 337.46 ms MV E Ervin: 0.83 m/s MV E/A Ratio: | | | 0.79 MV PHT: 99.88 ms MVA By PHT: 2.20 cm2 MV A Dur: | | | 173.01 ms TV A Ervin: 0.87 m/s TV Dec Gooding: 2.09 m/s2 TV Dec | | | Time: 382.76 ms TV E Ervin: 0.80 m/s TV E/A Ratio: 0.91 | | | Camp Nurse: YULIANA Authenticated by: Leoncio Oshea Report Date/Time: | | | 01-07-2017 21:17:11 | | + + + + + | Procedure Note | + + | Vamsi Guillaume Conversion - 04/05/2019 11:44 PM PDT Patient Name: Judith WALKER of | | : 1950 Performing Physician: Leoncio | | Dayo INDICATIONS------ | | -----abn ekg, pt flat due to spinal injury CONCLUSIONS 1. The left ventricle | | is normal in size, mild concentric hypertrophy and hyperdynamic systolic function EF | | >70%.2. The right ventricle is moderately enlarged with normal systolic function.3. The | | aortic valve is mildly calcified with mild aortic regurgitation.4. There is no | | pericardial effusion. FINDINGS--------[no group]: Doppler was limited due to image | | quality and angle.ECG rhythm: Sinus rhythm.Study: A limited 2-dimensional transthoracic | | echocardiogram with limited spectral and color flow Doppler was performed.Study: This | | was a technically difficult study with suboptimal views.Left Ventricle: Left ventricular | | systolic function is hyperdynamic with an estimated EF of >70%.Left Ventricle: The left | | ventricle cavity size is normal.Left Ventricle: There is mild concentric left | | ventricular hypertrophy.Right Ventricle: The right ventricle is moderately | | enlarged.Right Ventricle: The right ventricular systolic function is normal.Left Atrium: | | The left atrium was not well visualized.Right Atrium: The right atrium was not well | | visualized.Aortic Valve: The aortic valve is trileaflet.Aortic Valve: The aortic valve | | is mildly calcified.Aortic Valve: There is mild aortic regurgitation.Mitral Valve: The | | mitral valve is normal.Tricuspid Valve: The tricuspid valve appears structurally | | normal.Pulmonic Valve: The pulmonic valve was not well visualized.Pericardium: There is | | no pericardial effusion.Pericardium: No pleural effusion seen.IVC/Hepatic Veins: The IVC | | was not well visualized. MEASUREMENTS ELLA Planimetry: 2.43 [id number] | | Planimetry: 0.00 cm2/m2RA Area: 27.57 cm2Ao asc: 3.90 cmAo sinus: 3.[address] | | junct: 3.52 cmEDV(Teich): 73.19 mlIVSd: 1.24 cmLVIDd: 4.07 cmLVPWd: 1.21 | | cmLVOT Diam: 2.26 cm%FS: 43.08 %EF(Teich): 74.69 %ESV(Teich): 18.51 mlIVSs: | | 1.43 cmLVIDs: 2.31 cmLVPWs: 1.43 cmSV(Teich): 54.67 mlAo Diam: 4.05 cmAV Cusp: | | 1.84 cmLA Diam: 3.72 cmLA/Ao: 0.91D-E Excursion: 1.21 cmE-F Gooding: 0.03 | | m/sEPSS: 0.99 cmHR: 75.39 BPMAV maxP.18 mmHgAV meanP.31 mmHgAV Vmax: | | 2.18 m/Nola Vmean: 1.41 m/Nola VTI: 40.05 cmAVA Vmax: 1.74 cm2AVA (VTI): 1.94 | | hs0ONCJ Vmax: 0.00 cm2/m2AVAI (VTI): 0.00 cm2/m2LVCI Dopp: 2.59 l/[id number] Dopp: | | 5.90 l/minHR: 75.72 BPMLVOT maxP.58 mmHgLVOT meanP.60 mmHgLVSI Dopp: | | 34.21 ml/m2LVSV Dopp: 78.01 mlLVOT Vmax: 0.94 m/sLVOT Vmean: 0.58 m/sLVOT VTI: | | 19.33 cmMV A Ervin: 1.04 m/sMV DecT: 337.46 msMV E Ervin: 0.83 m/sMV E/A Ratio: | | 0.79MV PHT: 99.88 msMVA By PHT: 2.20 cm2MV A Dur: 173.01 msTV A Ervin: 0.87 m/sTV | | Dec Gooding: 2.09 m/s2TV Dec Time: 382.76 msTV E Ervin: 0.80 m/sTV E/A Ratio: 0.91 | | Camp Nurse: CMAuthenticated by: Leoncio [facility]reMer[facility] Date/Time: 01-07-2017 21:17:11 | | IMPRESSION: 1. The left ventricle is normal in size, mild concentric hypertrophy and | | hyperdynamic systolic function EF >70%.2. The right ventricle is moderately enlarged | | with normal systolic function.3. The aortic valve is mildly calcified with mild aortic | | regurgitation.4. There is no pericardial effusion. | |IVC/Hepatic Veins: The IVC was not well visualized. | | | |MEASUREMENTS | | | |ELLA Planimetry: 2.43 cm2 | |AVAI Planimetry: 0.00 cm2/m2 | |RA Area: 27.57 cm2 | |Ao asc: 3.90 cm | |Ao sinus: 3.98 cm | |Ao st junct: 3.52 cm | |EDV(Teich): 73.19 ml | |IVSd: 1.24 cm | |LVIDd: 4.07 cm | |LVPWd: 1.21 cm | |LVOT Diam: 2.26 cm | |%FS: 43.08 % | |EF(Teich): 74.69 % | |ESV(Teich): 18.51 ml | |IVSs: 1.43 cm | |LVIDs: 2.31 cm | |LVPWs: 1.43 cm | |SV(Teich): 54.67 ml | |Ao Diam: 4.05 cm | |AV Cusp: 1.84 cm | |LA Diam: 3.72 cm | |LA/Ao: 0.91 | |D-E Excursion: 1.21 cm | |E-F Gooding: 0.03 m/s | |EPSS: 0.99 cm | |HR: 75.39 BPM | |AV maxP.18 mmHg | |AV meanP.31 mmHg | |AV Vmax: 2.18 m/s | |AV Vmean: 1.41 m/s | |AV VTI: 40.05 cm | |ELLA Vmax: 1.74 cm2 | |ELLA (VTI): 1.94 cm2 | |AVAI Vmax: 0.00 cm2/m2 | |AVAI (VTI): 0.00 cm2/m2 | |LVCI Dopp: 2.59 l/minm2 | |LVCO Dopp: 5.90 l/min | |HR: 75.72 BPM | |LVOT maxP.58 mmHg | |LVOT meanP.60 mmHg | |LVSI Dopp: 34.21 ml/m2 | |LVSV Dopp: 78.01 ml | |LVOT Vmax: 0.94 m/s | |LVOT Vmean: 0.58 m/s | |LVOT VTI: 19.33 cm | |MV A Ervin: 1.04 m/s | |MV DecT: 337.46 ms | |MV E Ervin: 0.83 m/s | |MV E/A Ratio: 0.79 | |MV PHT: 99.88 ms | |MVA By PHT: 2.20 cm2 | |MV A Dur: 173.01 ms | |TV A Ervin: 0.87 m/s | |TV Dec Gooding: 2.09 m/s2 | |TV Dec Time: 382.76 ms | |TV E Ervin: 0.80 m/s | |TV E/A Ratio: 0.91 | | | |Camp Nurse: CM | |Authenticated by: Leoncio Oshea | |Report Date/Time: 01-07-2017 21:17:11 | | | |IMPRESSION: | |1. The left ventricle is normal in size, mild concentric hypertrophy and hyperdynamic systo lic function EF >70%. | |2. The right ventricle is moderately enlarged with normal systolic function. | |3. The aortic valve is mildly calcified with mild aortic regurgitation. | |4. There is no pericardial effusion. | + + CK-MB (01/07/2017 6:08 AM PDT) + + + + + -+ | Component | Value | Ref Range | Performed | Pathologist | | | | | At | Signature | + + + + + -+ | CK-MB | 3.1 | 0.5 - 3.6 ng/mL | EXTERNAL | | | | | | LAB | | + + + + + -+ | CK-MB Index | 0.9Comment: CK INDEX | | EXTERNAL | | | | INTERPRETATION: | | LAB | | | | MMB ng/mL | | | | | | | | | | | |CK INDEX INTERPRETATION: | | | | | | MMB ng/mL | | | | | | | | | | + + + + + -+ + + | Specimen | + + | | + + + +---------+ + + | Performing | Address | City/State/Zipcode | Phone Number | | Organization | | | | + +---------+ + + | EXTERNAL LAB | | | | + +---------+ + + Troponin I (01/07/2017 6:08 AM PDT) + + + + + + | Component | Value | Ref Range | Performed | Pathologist | | | | | At | Signature | + + + + + + | Troponin I, | <0.020Comment: 0.00 to | 0.00 - 0.10 | EXTERNAL | | | Qual | 0.10 CONSISTENT WITH | ng/mL | LAB | | | | NORMAL POPULATION0.11 | | | | | | to 0.60 CONSISTENT | | | | | | WITH INCREASED RISK FOR | | | | | | ADVERSE OUTCOMES> 0.60 | | | | | | CONSISTENT | | | | | | WITH WHO CRITERIA FOR | | | | | | ACUTE MA Testing | | | | | | performed at [facility];[address] | | | | | [address];[place], [place] | | | | | | [address] | | | | + + + [...] + +---------+ + + External Lab: CBC (01/07/2017 6:08 AM PDT) + + + + + + | Component | Value | Ref Range | Performed | Pathologist | | | | | At | Signature | + + + + + + | WBC | 9.71 | 3.80 - 11.00 | EXTERNAL | | | | | K/uL | LAB | | + + + + + + | RED CELL | 5.07 | 4.20 - 5.70 | EXTERNAL | | | COUNT | | M/uL | LAB | | + + + + + + | Hgb | 14.6 | 13.2 - 17.0 | EXTERNAL | | | | | g/dL | LAB | | + + + + + + | Hematocrit, | 43.1 | 39.0 - 50.0 % | EXTERNAL | | | POC | | | LAB | | + + + + + + | MCV | 85.0 | 80.0 - 100.0 fl | EXTERNAL | | | | | | LAB | | + + + + + + | MCH | 28.8 | 27.0 - 34.0 pg | EXTERNAL | | | | | | LAB | | + + + + + + | MCHC | 33.9 | 32.0 - 35.5 | EXTERNAL | | | | | g/dL | LAB | | + + + + + + | RDW-CV | 44.2 | 37 - 53 fl | EXTERNAL | | | | | | LAB | | + + + + + + | Platelet | 243 | 150 - 400 K/uL | EXTERNAL | | | Count | | | LAB | | | Plasma | | | | | + + + + + + | MPV | 7.7 | fl | EXTERNAL | | | | | | LAB | | + + + + + + | Differentia | AUTOMATED | | EXTERNAL | | | l Type | | | LAB | | + + + + + + | % Segmented | 75.64 | % | EXTERNAL | | | | | | LAB | | | Neutrophils | | | | | + + + + + + | % | 14.10 | % | EXTERNAL | | | Lymphocytes | | | LAB | | + + + + + + | % Monocytes | 7.98 | % | EXTERNAL | | | | | | LAB | | + + + + + + | % | 1.65 | % | EXTERNAL | | | Eosinophils | | | LAB | | + + + + + + | % Basophils | 0.63 | % | EXTERNAL | | | | | | LAB | | + + + + + + | Absolute | 7.34 | 1.90 - 7.40 | EXTERNAL | | | Segmented | | K/uL | LAB | | | Neutrophils | | | | | + + + + + + | Absolute | 1.37 | 1.00 - 3.90 | EXTERNAL | | | Lymphocytes | | K/uL | LAB | | + + + + + + | Absolute | 0.78 | 0.00 - 0.80 | EXTERNAL | | | Monocytes | | K/uL | LAB | | + + + + + + | Absolute | 0.16 | 0.00 - 0.50 | EXTERNAL | | | Eosinophils | | K/uL | LAB | | + + + + + + | Absolute | 0.06Comment: Testing | 0.00 - 0.10 | EXTERNAL | | | Basophils | performed at [facility], [address] | K/uL | LAB | | | | [address], | | | | | | [place] [address] | | | | + + + + + + + + | Specimen | + + | Blood specimen | | (specimen) | + + + +---------+ + + | Performing | Address | City/State/Zipcode | Phone Number | | Organization | | | | + +---------+ + + | EXTERNAL LAB | | | | + +---------+ + + TSH (01/07/2017 6:08 AM PDT) + + + + + + | Component | Value | Ref Range | Performed | Pathologist | | | | | At | Signature | + + + + + + | TSH | 1.75Comment: Testing | 0.45 - 5.10 | EXTERNAL | | | | performed at [facility], [address] | uIU/mL | LAB | | | | [address], | | | | | | [place] [address] | | | | + + + + + + + + | Specimen | + + | Blood specimen | | (specimen) | + + + +---------+ + + | Performing | Address | City/State/Zipcode | Phone Number | | Organization | | | | + +---------+ + + | EXTERNAL LAB | | | | + +---------+ + + T4, Free (01/07/2017 6:08 AM PDT) + + + + + + | Component | Value | Ref Range | Performed | Pathologist | | | | | At | Signature | + + + + + + | FREE T4 | 1.1Comment: Testing | 0.7 - 1.5 ng/dL | EXTERNAL | | | (REF) | performed at [facility], [address] | | LAB | | | | [address], | | | | | | [place] [address] | | | | + + + + + + + + | Specimen | + + | Blood specimen | | (specimen) | + + + +---------+ + + | Performing | Address | City/State/Zipcode | Phone Number | | Organization | | | | + +---------+ + + | EXTERNAL LAB | | | | + +---------+ + + Phosphorus (01/07/2017 6:08 AM PDT) + + + + + + | Component | Value | Ref Range | Performed | Pathologist | | | | | At | Signature | + + + + + + | PHOSPHORUS | 3.1Comment: SPECIMEN | 2.3 - 4.8 mg/dL | EXTERNAL | | | | SLIGHTLY | | LAB | | | | HEMOLYZEDTesting | | | | | | performed at [facility], [address] | | | | | | [address], | | | | | | [place] [address] | | | | + + + + + + + + | Specimen | + + | Blood specimen | | (specimen) | + + + +---------+ + + | Performing | Address | City/State/Zipcode | Phone Number | | Organization | | | | + +---------+ + + | EXTERNAL LAB | | | | + +---------+ + + Magnesium (01/07/2017 6:08 AM PDT) + + + + + + | Component | Value | Ref Range | Performed | Pathologist | | | | | At | Signature | + + + + + + | Magnesium | 2.2Comment: SPECIMEN | 1.7 - 2.4 mg/dL | EXTERNAL | | | | SLIGHTLY | | LAB | | | | HEMOLYZEDTesting | | | | | | performed at [facility], [address] | | | | | | [address], | | | | | | [place] [address] | | | | + + + + + + + + | Specimen | + + | Blood specimen | | (specimen) | + + + +---------+ + + | Performing | Address | City/State/Zipcode | Phone Number | | Organization | | | | + +---------+ + + | EXTERNAL LAB | | | | + +---------+ + + CK Total (01/07/2017 6:08 AM PDT) + + + + + + | Component | Value | Ref Range | Performed | Pathologist | | | | | At | Signature | + + + + + + | CK, Total | 346Comment: Testing | 55 - 400 U/L | EXTERNAL | | | | performed at [facility];[address] | | LAB | | | | [address];[place] | | | | | | [address] | | | | + + + [...] + +---------+ + + Basic Metabolic Panel (01/07/2017 6:08 AM PDT) + + + + + + | Component | Value | Ref Range | Performed | Pathologist | | | | | At | Signature | + + + + + + | Na | 139 | 135 - 145 | EXTERNAL | | | | | mmol/L | LAB | | + + + + + + | K | 3.9Comment: SPECIMEN | 3.5 - 4.9 | EXTERNAL | | | | SLIGHTLY HEMOLYZED | mmol/L | LAB | | [...] + + + | Anion Gap | 15 | 5 - 20 mmol/L | EXTERNAL | | | | | | LAB | | + + + + + + | Glucose, | 178 (H)Comment: SPECIMEN | 65 - 99 mg/dL | EXTERNAL | | | Fasting | SLIGHTLY HEMOLYZED | | LAB | | + + + + + + | BUN | 14 | 8 - 25 mg/dL | EXTERNAL | | | | | | LAB | | + + + + + + | Creatinine | 1.0Comment: SPECIMEN | 0.70 - 1.30 | EXTERNAL | | | | SLIGHTLY HEMOLYZED | mg/dL | LAB | | + + + + + + | BUN/Creatin | 14 | | EXTERNAL | | | ine Ratio | | | LAB | | + + + + + + | Calcium | 9.0 | 8.5 - 10.5 | EXTERNAL | [...] BY | | | | | | 1.210.Testing performed | | | | | | at [facility], [address] | | | | | | [address], | | | | | | [place] [address] | | | | + + + + + + + + | Specimen | + + | Blood specimen | | (specimen) | + + + +---------+ + + | Performing | Address | City/State/Zipcode | Phone Number | | Organization | | | | + +---------+ + + | EXTERNAL LAB | | | | + +---------+ + + POC Glucose (01/07/2017 5:31 AM PDT) + + + + + + | Component | Value | Ref Range | Performed | Pathologist | | | | | At | Signature | + + + + + + | Glucose, | 177 (H)Comment: Testing | 65 - 99 mg/dL | EXTERNAL | | | Fingerstick | performed at [facility];[address] | | LAB | | | | [address];[place] | | | | | | [address] | | | | + + + + + + + + | Specimen | + + | | + + + +---------+ + + | Performing | Address | City/State/Zipcode | Phone Number | | Organization | | | | + +---------+ + + | EXTERNAL LAB | | | | + +---------+ + + XR Knee Left 1 - 2 Vw (01/07/2017 4:09 AM PDT) + + | Specimen | + + | | + + + + + | Impressions | Performed At | + + + | No acute fracture or dislocation. No bone, joint or soft tissue | | | abnormality. | | | 6:58 AM | | + + + + + + | Narrative | Performed At | + + + | JOSE RAFAEL WALKER 1950 XR KNEE LIMITED LEFT 01/07/2017 4:09 AM | | | INDICATION: Trauma, fall. COMPARISON: None TECHNIQUE: Left | | | knee series, 3 views | | + + + + + | Procedure Note | + + | Vamsi Guillaume Conversion - 04/05/2019 11:44 PM PDT JOSE RAFAEL Ayesha WALKER | | 1950 | | XR KNEE LIMITED LEFT | | 01/07/2017 4:09 AM | | | | INDICATION: Trauma, fall. | | | | COMPARISON: None | | | | TECHNIQUE: Left knee series, 3 views | | | | IMPRESSION: | | No acute fracture or dislocation. | | | | No bone, joint or soft tissue abnormality. | | | | | + + XR Knee Right 1 - 2 Vw (01/07/2017 2:58 AM PDT) + + | Specimen | + + | | + + + + + | Impressions | Performed At | + + + | No acute fracture or dislocation. No bone, joint or soft tissue | | | abnormality. | | | 6:57 AM | | + + + + + + | Narrative | Performed At | + + + | [facility] 1950 XR KNEE LIMITED RIGHT 01/07/2017 2:58 AM | | | INDICATION: Knee pain. COMPARISON: None TECHNIQUE: Right | | | knee series, 2 views. | | + + + + + | Procedure Note | + + | Vamsi Guillaume Conversion - 04/05/2019 11:44 PM PDT [facility] | | 1950 | | XR KNEE LIMITED RIGHT | | 01/07/2017 2:58 AM | | | | INDICATION: Knee pain. | | | | COMPARISON: None | | | | TECHNIQUE: Right knee series, 2 views. | | | | IMPRESSION: | | No acute fracture or dislocation. | | | | No bone, joint or soft tissue abnormality. | | | | | + + CT Maxillofacial wo Contrast (01/07/2017 1:03 AM PDT) + + | Specimen | + + | | + + + + + | Impressions | Performed At | + + + | 1. Acute displaced fracture of the anterolateral wall of the left | | | maxillary sinus (series 4 image 30, series 3 image 70). The fracture | | | fragment is displaced superomedially and posteriorly into the left | | | maxillary sinus. 2. Given the left maxillary sinus wall fracture, | | | there is now resulting soft tissue emphysema within the left | | | submandibular space, left cellophane wrapping examiner space, and left periorbital soft | | | tissues. 3. 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 No | | | evidence of acute fracture or malalignment involving the spine. | | | However, given the ankylosed spine MRI of the spine is recommended, as | | | clinically indicated, to further evaluate. RADIA | | | Electronically signed by Divya Prieto MD on Jan 07 2017 1:30AM | | | Referring Provider Line: [phone] ID: [id number] | | + + + + + + | Narrative | Performed At | + + + | EXAM: CT MAXILLOFACIAL WITHOUT CONTRAST EXAM DATE: 01/07/2017 | | | 01:06 AM. CLINICAL HISTORY: Facial swelling. COMPARISONS: | | | None. TECHNIQUE: Thin-section axial images were acquired of the | | | face without contrast. Post-processing: Coronal and sagittal | | | reformats. Other: None. In accordance with CT protocol | | | optimization, one or more of the following dose reduction techniques | | | were utilized for this exam: automated exposure control, adjustment of | | | mA and/or KV based on patient size, or use of iterative | | | reconstructive technique. FINDINGS: There is soft tissue | | | emphysema within the left submandibular space, left cellophane wrapping examiner space, | | | and left periorbital soft tissues. This is likely due to a acute | | | displaced fracture of the anterolateral wall of the left maxillary | | | sinus (series 4 image 30, series 3 image 70). The fracture fragment | | | is displaced superomedially and posteriorly into the left maxillary | | | sinus. Bones: Cervical spine appears ankylosed, with no definite | | | CT evidence of acute fracture or malalignment. Temporomandibular | | | Joints: The temporomandibular joints are symmetric and normally | | | located. Sinuses: Mucous retention cyst/polyp within the left | | | maxillary sinus. Other: None. | | + + + + + | Procedure Note | + + | Markell, Rad Conversion - 04/05/2019 11:44 PM PDT EXAM:CT MAXILLOFACIAL WITHOUT CONTRAST | | EXAM DATE: 01/07/2017 01:06 AM. CLINICAL HISTORY: Facial swelling. COMPARISONS: None. | | TECHNIQUE: Thin-section axial images were acquired of the face without contrast. | | Post-processing: Coronal and sagittal reformats. Other: None. In accordance with CT | | protocol optimization, one or more of the following dose reduction techniques were | | utilized for this exam: automated exposure control, adjustment of mA and/or KV based on | | patient size, or use of iterative reconstructive technique. FINDINGS:There is soft | | tissue emphysema within the left submandibular space, left cellophane wrapping examiner space, and left | | periorbital soft tissues. This is likely due to a acute displaced fracture of the | | anterolateral wall of the left maxillary sinus (series 4 image 30, series 3 image 70). | | The fracture fragment is displaced superomedially and posteriorly into the left | | maxillary sinus. Bones: Cervical spine appears ankylosed, with no definite CT evidence | | of acute fracture or malalignment. Temporomandibular Joints: The temporomandibular | | joints are symmetric and normally located. Sinuses: Mucous retention cyst/polyp within | | the left maxillary sinus.Other: None. IMPRESSION: 1. Acute displaced fracture of the | | anterolateral wall of the left maxillary sinus (series 4 image 30, series 3 image 70). | | The fracture fragment is displaced superomedially and posteriorly into the left | | maxillary sinus. 2. Given the left maxillary sinus wall fracture, there is now resulting | | soft tissue emphysema within the left submandibular space, left cellophane wrapping examiner space, and | | left periorbital soft tissues. 3. 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 No | | evidence of acute fracture or malalignment involving the spine. However, given the | | ankylosed spine MRI of the spine is recommended, as clinically indicated, to further | | evaluate. RADIA Electronically signed by Divay Prieto MD on Jan 07 2017 1:30AM | | Referring Provider Line: [phone] ID: [id number] | | | |IMPRESSION: | | | |1. Acute displaced fracture of the anterolateral wall of the left maxillary sinus (series 4 image 30, series 3 image 70). The fracture fragment is displaced superomedially and posteri nidia into the left maxillary sinus. | | | |2. Given the left maxillary sinus wall fracture, there is now resulting soft tissue emphyse ma within the left submandibular space, left cellophane wrapping examiner space, and left periorbital soft tis sues. | | | |3. 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 No evidence of acute fracture or malalignmen t involving the spine. However, given the ankylosed spine MRI of the spine is recommended, a s clinically indicated, to further evaluate. | | | |RADIA | | | | Electronically signed by Divya Prieto MD on Jan 07 2017 1:30AM Referring Provider Taylor e: [phone] ID: [id number] | + + MRI Cervical Spine wo Contrast (01/07/2017 1:01 AM PDT) + + | Specimen | + + | | + + + + + | Impressions | Performed At | + + + | Left thyroid mass measures up to 3.8 cm. Consider correlation | | | with thyroid ultrasound. Changes of ankylosing spondylitis | | | throughout the cervical and upper thoracic spine. There is a small | | | amount of prevertebral soft tissue edema. 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 T2 signal | | | prolongation within the disk space at C6-C7. Findings represent | | | nondisplaced fracture through the ankylosed spine at this level. | | | RADIA Electronically signed by Artemio Riddle MD on Jan 07 2017 | | | 1:18AM Referring Provider Line: [phone] ID: [id number] | | + + + + + + | Narrative | Performed At | + + + | EXAM: MRI CERVICAL SPINE WITHOUT CONTRAST EXAM DATE: 01/07/2017 | | | 12:33 AM. CLINICAL HISTORY: Pain after trauma. Fractures seen on | | | outside CT. COMPARISONS: Outside CT cervical spine 01/06/2017. | | | TECHNIQUE: Multiplanar, multisequence T1-weighted and fluid-sensitive | | | sequences of the cervical spine without contrast. Other: None. | | | FINDINGS: Neurologic Structures: The visualized posterior fossa | | | structures are unremarkable. No signal abnormality in the visualized | | | spinal cord. Alignment: Normal. No scoliosis or spondylolisthesis. | | | Bone Marrow: There are changes of ankylosing spondylitis T2 | | | signal prolongation is seen within the bone marrow dorsally at C5 and | | | C6, with suspected disruption of the posterior longitudinal ligament | | | at this level. T2 signal prolongation within the disk space at | | | C6-C7. There is a small amount of prevertebral soft tissue edema in | | | the lower cervical/upper thoracic spine consistent with recent injury. | | | No displaced fracture is identified. No intraspinal hematoma or cord | | | impingement at any level. Interspace Levels/Facets: Bony central | | | canal and foramina appear patent at all levels. 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 Musculature: Normal. No edema or fatty | | | atrophy. Other: Left thyroid mass measures up to 3.8 cm. This is | | | poorly characterized with this technique. | | + + + + + | Procedure Note | + + | Markell, Rad Conversion - 04/05/2019 11:44 PM PDT EXAM:MRI CERVICAL SPINE WITHOUT | | CONTRAST EXAM DATE: 01/07/2017 12:33 AM. CLINICAL HISTORY: Pain after trauma. Fractures | | seen on outside CT. COMPARISONS: Outside CT cervical spine 01/06/2017. TECHNIQUE: | | Multiplanar, multisequence T1-weighted and fluid-sensitive sequences of the cervical | | spine without contrast. Other: None. FINDINGS:Neurologic Structures: The visualized | | posterior fossa structures are unremarkable. No signal abnormality in the visualized | | spinal cord. Alignment: Normal. No scoliosis or spondylolisthesis. Bone Marrow: There | | are changes of ankylosing spondylitis T2 signal prolongation is seen within the bone | | marrow dorsally at C5 and C6, with suspected disruption of the posterior longitudinal | | ligament at this level. T2 signal prolongation within the disk space at C6-C7. There is | | a small amount of prevertebral soft tissue edema in the lower cervical/upper thoracic | | spine consistent with recent injury. No displaced fracture is identified. No intraspinal | | hematoma or cord impingement at any level. Interspace Levels/Facets:Bony central canal | | and foramina appear patent at all levels. Changes of ankylosing spondylitis throughout. | | Musculature: Normal. No edema or fatty atrophy. Other: Left thyroid mass measures up to | | 3.8 cm. This is poorly characterized with this technique. IMPRESSION: Left thyroid | | mass measures up to 3.8 cm. Consider correlation with thyroid ultrasound. Changes of | | ankylosing spondylitis throughout the cervical and upper thoracic spine. There is a | | small amount of prevertebral soft tissue edema. Edema is also seen related to the fused | | posterior longitudinal ligament at C5 and C6. T2 signal prolongation within the disk | | space at C6-C7. Findings represent nondisplaced fracture through the ankylosed spine at | | this level. RADIA Electronically signed by Artemio Riddle MD on Jan 07 2017 1:18AM | | Referring Provider Line: [phone] ID: [id number] | |Musculature: Normal. No edema or fatty atrophy. | | | |Other: Left thyroid mass measures up to 3.8 cm. This is poorly characterized with this tech nique. | | | |IMPRESSION: | | | | | |Left thyroid mass measures up to 3.8 cm. Consider correlation with thyroid ultrasound. | | | |Changes of ankylosing spondylitis throughout the cervical and upper thoracic spine. There i s a small amount of prevertebral soft tissue edema. 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 T2 signal prolongation | |within the disk space at C6-C7. Findings represent nondisplaced fracture through the ankylo sed spine at this level. | | | |RADIA | | | | Electronically signed by Artemio Riddle MD on Jan 07 2017 1:18AM Referring Provider Line: [phone] ID: [id number] | + + HISTORICAL LAB PANEL RESULT (01/06/2017 11:35 PM PDT) + + + + + -+ | Component | Value | Ref Range | Performed | Pathologist | | | | | At | Signature | + + + + + -+ | WBC | 11.78 (H) | 3.80 - 11.00 | EXTERNAL | | | | | K/uL | LAB | | + + + + + -+ | RED CELL | 4.78 | 4.20 - 5.70 | EXTERNAL | | | COUNT | | M/uL | LAB | | + + + + + -+ | Hgb | 13.9 | 13.2 - 17.0 | EXTERNAL | | | | | g/dL | LAB | | + + + + + -+ | Hematocrit, | 40.2 | 39.0 - 50.0 % | EXTERNAL | | | POC | | | LAB | | + + + + + -+ | MCV | 84.0 | 80.0 - 100.0 fl | EXTERNAL | | | | | | LAB | | + + + + + -+ | MCH | 29.0 | 27.0 - 34.0 pg | EXTERNAL | | | | | | LAB | | + + + + + -+ | MCHC | 34.5 | 32.0 - 35.5 | EXTERNAL | | | | | g/dL | LAB | | + + + + + -+ | RDW-CV | 44.6 | 37 - 53 fl | EXTERNAL | | | | | | LAB | | + + + + + -+ | Platelet | 240 | 150 - 400 K/uL | EXTERNAL | | | Count | | | LAB | | | Plasma | | | | | + + + + + -+ | MPV | 7.1 | fl | EXTERNAL | | | | | | LAB | | + + + + + -+ | Differentia | AUTOMATED | | EXTERNAL | | | l Type | | | LAB | | + + + + + -+ | % Segmented | 75.23 | % | EXTERNAL | | | | | | LAB | | | Neutrophils | | | | | + + + + + -+ | % | 15.77 | % | EXTERNAL | | | Lymphocytes | | | LAB | | + + + + + -+ | % Monocytes | 7.33 | % | EXTERNAL | | | | | | LAB | | + + + + + -+ | % | 1.10 | % | EXTERNAL | | | Eosinophils | | | LAB | | + + + + + -+ | % Basophils | 0.57 | % | EXTERNAL | | | | | | LAB | | + + + + + -+ | Absolute | 8.86 (H) | 1.90 - 7.40 | EXTERNAL | | | Segmented | | K/uL | LAB | | | Neutrophils | | | | | + + + + + -+ | Absolute | 1.86 | 1.00 - 3.90 | EXTERNAL | | | Lymphocytes | | K/uL | LAB | | + + + + + -+ | Absolute | 0.86 (H) | 0.00 - 0.80 | EXTERNAL | | | Monocytes | | K/uL | LAB | | + + + + + -+ | Absolute | 0.13 | 0.00 - 0.50 | EXTERNAL | | | Eosinophils | | K/uL | LAB | | + + + + + -+ | Absolute | 0.07 | 0.00 - 0.10 | EXTERNAL | | | Basophils | | K/uL | LAB | | + + + + + -+ | Na | 137 | 135 - 145 | EXTERNAL | | | | | mmol/L | LAB | | + + + + + -+ | K | 3.4 (L) | 3.5 - 4.9 | EXTERNAL | | | | | mmol/L | LAB | | + + + + + -+ | Cl | 102 | 99 - 109 mmol/L | EXTERNAL | | | | | | LAB | | + + + + + -+ | CO2 | 25 | 23 - 32 mmol/L | EXTERNAL | | | | | | LAB | | + + + + + -+ | Anion Gap | 14 | 5 - 20 mmol/L | EXTERNAL | | | | | | LAB | | + + + + + -+ | Glucose, | 182 (H) | 65 - 99 mg/dL | EXTERNAL | | | Fasting | | | LAB | | + + + + + -+ | BUN | 12 | 8 - 25 mg/dL | EXTERNAL | | | | | | LAB | | + + + + + -+ | Creatinine | 1.0 | 0.70 - 1.30 | EXTERNAL | | | | | mg/dL | LAB | | + + + + + -+ | BUN/Creatin | 12 | | EXTERNAL | | | ine Ratio | | | LAB | | + + + + + -+ | Calcium | 8.3 (L) | 8.5 - 10.5 | EXTERNAL | | | | | mg/dL | LAB | | + + + + + -+ | Protein, | 6.8 | 6.3 - 8.2 g/dL | EXTERNAL | | | Total | | | LAB | | + + + + + -+ | Albumin | 3.0 (L) | 3.3 - 4.8 g/dL | EXTERNAL | | | | | | LAB | | + + + + + -+ | Globulin | 3.8 | 1.3 - 4.9 g/dL | EXTERNAL | | | | | | LAB | | + + + + + -+ | A/G Ratio | 0.8 (L) | 1.0 - 2.4 | EXTERNAL | | | | | | LAB | | + + + + + -+ | Bilirubin | 1.0 | 0.1 - 1.5 mg/dL | EXTERNAL | | | Total | | | LAB | | + + + + + -+ | ALP, | 70 | 35 - 115 U/L | EXTERNAL | | | External | | | LAB | | + + + + + -+ | AST | 32 | 10 - 45 U/L | EXTERNAL | | | | | | LAB | | + + + + + -+ | ALT | 45 | 10 - 65 U/L | EXTERNAL | | | | | | LAB | | + + + + + -+ | Estimated | >60Comment: GFR <60: | [...] | | | | CALCULATED GFR BY 1.210. | | | | | | | | | | + + + + + -+ | CK, Total | 357 | 55 - 400 U/L | EXTERNAL | | | | | | LAB | | + + + + + -+ | INR | 2.2Comment: REFERENCE | | EXTERNAL | | | | RANGE:0.9 - 1.2 | | LAB | | | | NON-ANTICOAGULATED2.0 | | | | | | - 3.0 ALL OTHER | | | | | | THERAPEUTIC | | | | | | INDICATIONS2.5 - 3.5 | | | | | | MECHANICAL HEART VALVES, | | | | | | RECURRENT OR SYSTEMIC | | | | | | EMBOLISM | | | | + + + + + -+ | aPTT, | 39 (H) | 23 - 32 seconds | EXTERNAL | | | Patient | | | LAB | | + + + + + -+ | CK-MB | 3.6 | 0.5 - 3.6 ng/mL | EXTERNAL | | | | | | LAB | | + + + + + -+ | CK-MB Index | 1.0Comment: CK INDEX | | EXTERNAL | | | | INTERPRETATION: | | LAB | | | | MMB ng/mL | | | | | | | | | | | |CK INDEX INTERPRETATION: | | | | | | MMB ng/mL | | | | | | | | | | + + + + + -+ + + | Specimen | + + | | + + + +---------+ + + | Performing | Address | City/State/Zipcode | Phone Number | | Organization | | | | + +---------+ + + | EXTERNAL LAB | | | | + +---------+ + + Ethanol (01/06/2017 11:35 PM PDT) + + + + + + | Component | Value | Ref Range | Performed | Pathologist | | | | | At | Signature | + + + + + + | Ethyl | <10Comment: Testing | mg/dL | EXTERNAL | | | Alcohol | performed at [facility] [place] | | LAB | | | | [address];[place] | | | | | | [id number] | | | | + + + + + + + + | Specimen | + + | Blood specimen | | (specimen) | + + + +---------+ + + | Performing | Address | City/State/Zipcode | Phone Number | | Organization | | | | + +---------+ + + | EXTERNAL LAB | | | | + +---------+ + + XR Chest 2 Vws (01/06/2017 9:04 PM PDT) + + | Specimen | [...] + | Vamsi Guillaume Jorden - 04/05/2019 11:44 PM PDT This is a non-reportable procedure | | without a radiologist report and isused for image storage only | + + documented in this encounter Visit Diagnoses + + | Diagnosis | + + | Diagnosis unknown Other unknown and unspecified cause of morbidity or mortality | + + | Closed nondisplaced fracture of seventh cervical vertebra, unspecified fracture | | morphology, initial encounter (HCC) | + + | Maxillary fracture, left side, initial encounter for open fracture (HCC) | + + | Antiphospholipid syndrome (HCC) Primary hypercoagulable state | + + | Controlled type 2 diabetes mellitus with hyperglycemia, without long-term current use | | of insulin (HCC) | + + | Syncope and collapse | + + | CSF leak Other specified disorder of nervous system | + + documented in this encounter
--- OUTSIDE RECORDS SUMMARY | ~2019-08-03 | XMS | Encounter Summary ---
Demographics + + + | Address | [address] | | | [place] [address] | + + + | Home Phone | | + + + | Preferred Language | Unknown | + + + | Marital Status | Single | + + + | Oriental Orthodox Affiliation | 1041 | + + + | Race | Unknown | + + + | Ethnic Group | Unknown | + + + Author + + + | Author | [facility] | | | and [place] | + + + | Organization | [facility] | | | and [place] [...] Team Providers + +------+ + | Care Postal Service Sectional Center Manager Name | Role | Phone | + +------+ + PCP | Unavailable | + +------+ + Encounter Details +--------+ + + + + | Date | Type | Department | Care Team | Description | +--------+ + + + + | 01/06/ | Hospital | C GENERIC IP | Conversion | Diagnosis unknown | | 2017 | Encounter | CONVERSION DEP [address] | Transaction, | | | | | [address] | Provider Unknown | | | | | [place] | | | | | | [phone] | (Fax) | | | | | [...] | | | | | [place] [address] | | | | | | [phone] | | | | | | | | +--------+---------+ + + + | 11/26/ | Office | Cardiology | ChanningTray marcbubba | | | 2019 | Visit | | MD Marisol [address] | | | | | | [place] | | | | | | [address] | | | | | | | | +--------+---------+ + + + documented as of this encounter Procedures + +--------+ + + + | Procedure Name | Priori | Date/Time | Associated Diagnosis | Comments | | | ty | | | | + +--------+ + + + | CT HEAD WO CONTRAST | Routin | 01/06/2017 | | Results for this | | | e | 8:21 PM | | procedure are in the | | | | PDT | | results section. | + +--------+ + + + documented in this encounter Results CT Head wo Contrast (01/06/2017 8:21 PM PDT) + + | Specimen | [...] Vamsi Guillaume - 04/05/2019 11:44 PM PDT This is a non-reportable procedure | | without a radiologist report and isused for image storage only | + + documented in this encounter Visit Diagnoses + + | Diagnosis | + + | Diagnosis unknown Other unknown and unspecified cause of morbidity or mortality | + + documented in this encounter"
--- OUTSIDE RECORDS SUMMARY | ~2019-08-03 | XMS | Encounter Summary ---
Demographics + + + | Address | [address] | | | [place] [address] | + + + | Home Phone [...] Author + + + | Author | [facility] | + + + | Organization | [facility] | + + + | [...] Team Providers + +------+ + | Care Life Skills Coordinator Volunteer Name | Role | Phone | + +------+ + | Gracie Mariano MD | PCP | | + +------+ + Reason for Visit + + + | Reason | Comments | + + + | Pre-operative | TOTAL HIP ARTHROPLASTY on 07/12/2013 by Jorge Walker MD at [facility] | | evaluation | 6A | + + + Encounter Details +--------+---------+ + + + | Date | Type | Department | Care Team | Description | +--------+---------+ + + + | 06/29/ | Office | Preoperative | Angeline Arambula | Preop examination | | 2013 | Visit | Medicine Clinic at | R, 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.] | | | W MD Denise at [facility] | | | | | [...] growth), you will be contacted b y with additional instructions on how to prepare [...] following medications on the morning of surgery: allopurinol 100 mg Oral tablet, Take 100 [...] [facility], [facility] floor [facility] Surgery Check in Time: The Preoperative [...] it is after office hours, call the [facility] napping machine operator at [phone] and ask them to page him or h er. Preparing For Your Surgery Video -- 7 minutes of instructions! Access the [facility] website [email or web address] --> POPULAR RESOURCES --> Patient [...] DM, HTN. Seen by Dr. Tijerina at [facility] on 03/02/2013 for this same procedure, but [...] Date RATE 68 03/10/2013 ATRIALRATE 68 03/10/2013 OK 202 03/10/2013 QRS 102 03/10/2013 QT 388 [...] 03/10/2013 MEDICAL DECISION MAKIN ACC/ AHA Perioperative Guidelines [...] or consider noninvasive testing if it will foreign exchange position clerk Surgery Risk: Intermediate Patient-related risk: Estimated ASA [...] to this patient's care. ANGELINE ARAMBULA NP [facility] [address] [facility] [address] I counseled the patient regarding perioperative [...] [facility] | [address] | [place], [place] | | | [facility] | [address] | [address] | | | TESTS | | | [...] ranges for some CBC/Differential analytes in | SERVICES, CORE | | effect on 03/10/13. | | + + + + + + + + | Performing | Address | City/State/Zipcode | Phone Number | | Organization | | | | + + + + + | [facility] | [address] | [place] [address] | | | SERVICES, CORE | PARK [...] [facility] | [address] | [place] [address] | | | [place] | [address] [...] | | | LABORATORY | | | NEPALESE | | | SERVICES, | | | [...] | + + + + + | [facility] | [address] | [place] [address] | | | [facility] | [address] | | | + [...] [facility] | [address] | [place] [address] | | | SERVICES, | [address] [...] | + + + + + | [facility] | [address] | [place] [address] | | | SERVICES, | [address] [...] | SOURCE BODY | Nasal | | [place] - | | | SITE | | | [facility] - | | | | | | [place] | | + + + + + + | CULTURE | C NasalSource: Nasal | | [place] - | | | RESULT | | | AIRPORT - | | | | Final CULTURE | | [place] | | | | RESULT:No Methicillin | | | | | | [...] + | [place] [facility] - | [address] | [place] [address] | | | [place] | | | | + + + [...] thigh | + + | Ankylosing spondylitis ([facility]) Ankylosing spondylitis | + + | Hypertension Unspecified essential hypertension | + + | Diabetes mellitus ([facility]) Type II or unspecified type diabetes mellitus without mention | | of complication, not stated as uncontrolled | + + | Antiphospholipid antibody syndrome (HCC) Primary hypercoagulable state | + + | Difficult intubation Other specified conditions influencing health status | + + documented in this encounter
--- OUTSIDE RECORDS SUMMARY | ~2019-08-03 | XMS | Encounter Summary ---
Demographics + + + | Address | [address] | | | [place] [address] | + + + | Home Phone [...] Team Providers + +------+ + | Care Desk Assistant Name | Role | Phone | [...] MD | Other (orders for | | 2018 | | [facility] [address] | [address] | staple removal) | | | | Ave Mailcode: | [place], [place] | | | | | [facility] | [address] | | | | | and Zack, | [phone] | | | | | [place] [address] | | | | | | [place], [place] | | | | | | [address] | | | | | | [phone] | | | +--------+ + + + [...]
--- OUTSIDE RECORDS SUMMARY | ~2019-08-03 | XMS | Encounter Summary ---
Demographics + + + | Address | [address] | | | [place] [address] | + + + | Home Phone [...] Team Providers + +------+ + | Care Water Attendant Name | Role | Phone | + +------+ + | Gracie Mariano MD | PCP | | + +------+ + Reason for Visit + + + | Reason | Comments | + + + | Pre-operative | TOTAL HIP ARTHROPLASTY on 07/12/2013 by Jorge Walker MD at [facility] | | evaluation | 6A | + + + Encounter Details +--------+---------+ + + + | Date | Type | Department | Care Team | Description | +--------+---------+ + + + | 06/29/ | Office | Preoperative | Angeline Arambula | Preop examination | | 2013 | Visit | Medicine Clinic at | R, 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 CHAR FILTER TANK TENDER [address] | (Primary Dx); | | | | MPV 4th Floor Day | [address] | Osteoarthrosis, hip; | | | | Stay [address] | [place], [place] | Ankylosing | | | | [address] | [address] | spondylitis ([facility]); | | | | Mailcode: UHN65 | [phone] | Hypertension; | | | | [facility] | | Diabetes mellitus | | | | [address] [place], [place] | | ([facility]); | | | | [address] | | Antiphospholipid | | | | [phone] | | antibody syndrome | | | | | | ([facility]); Difficult | | | | [...] or walk. Surgery Check in Locations Admitting [facility] Surgery Check in Time: The Preoperative [...] it is after office hours, call the [facility] beating machine operator at [phone] and ask them to page him or h er. Preparing For Your Surgery Video -- 7 minutes of instructions! Access the [facility] website [email or web address] --> POPULAR RESOURCES --> Patient Guide --> [...] DM, HTN. Seen by Dr. Tijerina at [facility] on 03/02/2013 for this same procedure, [...] Date RATE 68 03/10/2013 ATRIALRATE 68 03/10/2013 MS 202 03/10/2013 QRS 102 03/10/2013 QT 388 [...] further investigation and manageme nt. A. Acute [place] within 7 days: no B. Unstable angina/Recent [place] (7- 30 days): no C. Decompensated CHF: [...] yes Rate of cardiac , non fatal [place], non fatal cardiac arrest (RCRI) 0 risk factors - 0.4% 1 risk factors - 1%, 2 risk factors - 7%, 3 or >risk factors - 11% (may benefit from perioperative beta blockers) Risk Factor Recommendations: 1-2 risk factors- proceed with planned surgery with HR control or consider noninvasive testing if it will slip box changer Surgery Risk: Intermediate Patient-related risk: Estimated ASA [...] to this patient's care. ANGELINE ARAMBULA NP [facility] [address] [facility] [address] I counseled the patient regarding [...] MARQUAM | [address] | [place], [place] | | | BABAR TAMEZ OF CARE | [address] | [address] | | | TESTS | | | [...] + | [facility] | [address] | [place] [address] | | | SERVICES, CORE | PARK [...] [facility] | [address] | [place] [address] | | | NAY KANG | [address] [...] | | | LABORATORY | | | [place] | | | SERVICES, | | | [...] CENTER, [facility] | [address] | [place] [address] | | | [facility] | [address] | | | + [...] [facility] | [address] | [place] [address] | | | SERVICES, | [address] [...] CENTER, [facility] | [address] | [place] [address] | | | SERVICES, | [address] [...] | | | Final CULTURE | | [place] | | | | RESULT:No Methicillin | [...] + | [facility] | [address] | [place] [address] | | | [place] | | | | + + + [...] thigh | + + | Ankylosing spondylitis ([facility]) Ankylosing spondylitis | + + | Hypertension Unspecified essential hypertension | + + | Diabetes mellitus ([facility]) Type II or unspecified type diabetes mellitus without mention | | of complication, not stated as uncontrolled | + + | Antiphospholipid antibody syndrome (HCC) Primary hypercoagulable state | + + | Difficult intubation Other specified conditions influencing health status | + + documented in this encounter
--- OUTSIDE RECORDS SUMMARY | ~2019-08-03 | XMS | Encounter Summary ---
Demographics + + + | Address | [address] | | | [place] [address] | + + + | Home Phone [...] Author + + + | Author | [facility] | + + + | Organization | [facility] | + + + | Address [...] Team Providers + +------+ + | Care Natural Sciences Department Chair Name | Role | Phone | + +------+ + | Gracie Mariano MD | PCP | | + +------+ + Encounter Details +--------+ + + + + | Date | Type | Department | Care Team | Description | +--------+ + + + + | 01/12/ | Hospital | Registration HOV | | | | 2018 | Encounter | [address] | | | | | | [place], | | | | | | [place] [address] | | | +--------+ + + + [...]
--- OUTSIDE RECORDS SUMMARY | ~2019-08-03 | XMS | Encounter Summary ---
Demographics + + + | Address | [address] | | | [place] [address] | + + + | Home Phone | | + + + | Preferred Language | Unknown | + + + | Marital Status | Single | + + + | Amish Affiliation | 1041 | + + + | Race | Unknown | + + + | Ethnic Group | Unknown | + + + Author + + + | Author | [facility] | | | and Zekeana | + + + | Organization | [facility] | | | and [...] Team Providers + +------+ + | Care Assistant Professor Of Psychology Name | Role | Phone | + +------+ + PCP | Unavailable | + +------+ + Encounter Details +--------+ + + + + | Date | Type | Department | Care Team | Description | +--------+ + + + + | 07/22/ | Hospital | [facility] | | | | 2006 | Encounter | MED CTR XRAY [address] | | | | | | [address] | | | | | | [place] [address] | | | | | | [phone] | | | +--------+ + + + [...] [address] | | | | | | [place] [address] | | | | | | [phone] | | | | | | | | +--------+---------+ + + + | 11/26/ | Office | Cardiology | Sissy Noyola | | | 2020 | Visit | | MD Marisol [address] | | | | | | [place] | | | | | | [address] | | | | | | | | +--------+---------+ + + + documented as of this encounter Visit Diagnoses Not on filedocumented in this encounter"
--- OUTSIDE RECORDS SUMMARY | ~2019-08-03 | XMS | Encounter Summary ---
Demographics + + + | Address | [address] | | | [place] [address] | + + + | Home Phone [...] Team Providers + +------+ + | Care Scrap Sawyer Name | Role | Phone | + [...] | Rheumatology | Diagnoses | Scott | [facility] | | | | | Ankylosing | MD Adriano | [address] | | | | | spondylitis | [address] | [place] | | | | | ([facility]) | Ave | Loop | | | | | Procedures | [place], [place] | Mailcode: | | | | | CONSULT TO | [address] | OP09 | | | | | RHEUMATOLOGY | | Physician's | | | | | | | [address], 4th | | | | | | | Floor | | | | | | | [place], [place] | | | | | | | [address] | | | | | | | Phone: | | | | | | | [phone] | | | | | | | Fax: | | | | | | | [phone] | +--------+--------+ + + + + Reason [...] | Ave | | | | | (HCC) | [place], [place] | [place], [place] | | | | | diarrhea | [address] | [address] | | | | | eval | Phone: | | | | | | | [phone] | | | | | | | Fax: | | | | | | | [phone] | | +--------+--------+ + + + + Encounter Details +--------+---------+ + + + | Date | Type | Department | Care Team | Description | +--------+---------+ + + + | 11/20/ | Office | Digestive Health | Adriano Chavez, | Ankylosing | | 2014 | Visit | Center at [facility] [address] | MD | spondylitis (HCC) | | | | [address] | | (Primary Dx); | | | | Mailcode: Center | | Nonspecific | | | | for Health and | | elevation of levels | | | | Healing, Building [address] | | of transaminase or | | | | [place], [place] | | lactic acid | | | | [address] | | dehydrogenase (LDH); | | | | [phone] | | Diarrhea; Ulcer of | | [...] m the original. Inflammatory Bowel Disease Clinic [facility] ~ Initial Consultation Referring Physician: Harinder Felton [...] -colorectal anastomosis at 32cm BIOPSIES (review at [facility]): colonic mucosal with surface hyperplastic changes Colonoscopy 01/07/12 ([facility]) -hyperplastic ulcerated lesion in proximal right colon/ileocecal valve -left-sided diverticulosis -nwvf-tk-vqjd colorectal anastomosis at 38cm BIOPSIES (review at [facility]): mildly increased lamina propria eosinophils (not sufficient for diagnosis of adenomatous change) Colonoscopy 12/28/12 ([facility]) -ulcerated ICV (previous Bx with [...] current facility-administered medications for this visit. Physical Exam: BP 163/92 | Pulse 79 | Temp (Src) 36.9 C (98.5 F) (Oral) | RR 18 | Ht 1.676 m (5' 6") | Wt 115.032 kg [...] incisiona l hernia with minimal tenderness noted. Labs: 06/29/13 WBC 8.80 Hgb 15.5 Hct 46.3 Plts [...] diarrhea improves could also be helpful. Donna camposy, further evaluation of the small bowel (with cross-sectional imaging) will further help in clarifying his diagnosis. We will hold on this evaluation until Munir has gone through his hip surgery but ideally before he starts Humira. Regarding Munir's elevated AST and ALT, I suspect this is from fatty liver. I will plan for a RUQ US for further evaluation. Plan and Recommendations: -schedule RUQ US -refer to rheumatology for joint [...] | + +---------+ + + | [facility] DEPARTMENT OF | | | [...]
--- OUTSIDE RECORDS SUMMARY | ~2019-08-03 | XMS | Encounter Summary ---
Demographics + + + | Address | [address] | | | [place] [address] | + + + | Home Phone [...] Team Providers + +------+ + | Care Shed Hand Name | Role | Phone | + [...] + + | 03/12/ | Hospital | [facility] [address] | Rosa M Smart MD | | | 2013 - | Encounter | [address] | [address] [facility] | | | | | [place], | [facility] | | | 03/16/ | | [place] [address] | [place], [place] | | | 2013 | | [phone] | [address] | | | | | | [phone] | | | | | | | [...] might be different fr om the original. [facility]AEDICS [facility]IL[facility]ATION INPATIENT HOSPITAL DISCHARGE SUMMARY & INTERDISCIPLINARY INSTRUCTIONS Patient: Jorge L Cisneros CSN: [id number] Admission Date: 03/12/2014 Discharge Date: 03/16/2014 Attending Physician: Rosa M Smart MD PCP: Gracie Mariano MD Service: [facility] Orthopaedics & Rehabilitation Diagnoses Principal Final [...] they suspect your wound is infected. Call [facility] Orthopedics first at [phone]. Activity Weight bear as tolerated on both [...] AM Rosa M Smart Orthopaedics at [facility] [phone] Orthopedics PCP: As needed for any medical [...] our pleasure. Ender Phelps MD Pager # [phone] documented in this enc ounter Discharge Instructions Instructions Gifty Coffey RN - 03/16/2014Patient Education Materials: AVS paperw ork & dressing supplies. Provided patient with morphine, sennakot and miralax that were fill ed at our outpatient pharmacy. No personal belongings held in our safe. Pt. Did not have an y additional questions at this time. Patients [facility] transporting [facility] back home. Additional Instructions: Per Sarah Gee NP: Pt is to take three 1 mg warfarin tabs for a tot al of 3 mg warfarin only this evening of 03/16/2014. Patient will then resume taking his norm al dose of 6mg warfarin starting on . Patient education provided by this auto service writer beti bowen these medication instructions. HANNA [...] home today Ender Phelps MD Pager # [phone] uff, Rosa M Paige MD - 03/15/2014 [...] possibly tomorrow Ender Phelps MD Pager # [phone] I performed a history and physical examination of the patient and discussed his management with the resident. I reviewed the resident s note and agree with the documented findings and plan of care. ROSA M SMART MD [facility] [address] [facility] [place] [address] Rosa M Cárdenas MD - 0 03/14/2014 [...] d/w CM. Ender Phelps MD Pager # [phone] I performed a history and physical examination of the patient and discussed his management with the resident. I reviewed the resident s note and agree with the documented findings and plan of care. ROSA M SMART MD [facility] [address] [facility] [place] [address] Ender Camara MD - 03/13/2014 8:08 AM [...] Dispo: pending Ender Phelps MD Pager # [phone] Rosa M Cárdenas MD - 03/12/2014 5:[address] [facility] ORTHOPAEDIC SURGERY POST OPERATIVE CHECK IDENTIFICATION: [...] sa/mclain/sp/dp/t, palpable DP/PT pulses. ASSESSMENT & PLAN: Jorg eL Cisneros is a 63 y.o. male, POD#0, [...] treatment tomorrow Ender Phelps MD Pager # [phone] I performed a history and physical examination of the patient and discussed his management with the resident. I reviewed the resident s note and agree with the documented findings and plan of care. ROSA M SMATR MD [facility] [address] [facility] [address] [place], [place] [address] Karen Stephen MD - 03/12/2014 12:32 PM [...] MARQUAM | [address] | [place], [place] | | | BABAR TAMEZ OF CARE | [facility] | [address] | | | TESTS | | | [...] AUTUMN GARCÍA | [address] | [place] [address] | | | SERVICES, NAY | [address] [...] + + + + + | [facility] LABORATORY | [address] | [place] [address] | | | SERVICES, NAY | GENNARO [...] | | | LABORATORY | | | COOK ISLANDER | | | SERVICES, | | [...] + + + + + | [facility] | [address] | [place] [address] | | | SERVICES, CORE | PARK [...] | 60 - 99 mg/dL | [facility] - | | | GLUCOSE, | [...] ARGUETA | [address] | [place], [place] | | | BABAR TAMEZ OF TIMUR | [facility] | [address] | | | TESTS | | | [...] MARQUAM | [address] | [place], [place] | | | BABAR ATMEZ OF CARE | [facility] | [address] | | | TESTS | | | [...] | 60 - 99 mg/dL | [facility] - | | | GLUCOSE, | [...] ELLIE | [address] | [place], [place] | | | BABAR TAMEZ OF [facility] | [address] | [address] | | | TESTS | | | [...] [facility] | [address] | [place] [address] | | | SERVICES, CORE | PARK [...] | | | LABORATORY | | | COOK ISLANDER | | | SERVICES, | | [...] | + + + + + | [employer] | [address] | [place] [address] | | | NAY KANG | [address] [...] + + + + + | [facility] | [address] | [place] [address] | | | SERVICES, CORE | GENNARO [...] BARRYAM | [address] | [place], [place] | | | BABAR TAMEZ OF CARE | [facility] | [address] | | | TESTS | | | [...] | 60 - 99 mg/dL | [facility] - | | | GLUCOSE, | [...] ELLIE | [address] | [place], [place] | | | JOI POINT OF CARE | [address] | [address] | | | TESTS | | | [...] ELLIE | [address] | [place], [place] | | | BABAR TAMEZ OF TIMUR | [facility] | [address] | | | TESTS | | | [...] | + + + + + | [facility] | [address] [facility] | [place] [address] | | | SERVICES, CORE | GENNARO [...] | | | LABORATORY | | | COOK ISLANDER | | | SERVICES, | | [...] [facility] | [address] | [place] [address] | | | SERVICES, CORE | PARK [...] | + + + + + | [facility] | [address] | [place] [address] | | | SERVICES, CORE | GENNARO [...] | 60 - 99 mg/dL | [facility] - | | | GLUCOSE, | [...] ARGUETA | [address] | [place], [place] | | | BABAR TAMEZ OF [facility] | [facility] | [address] | | | TESTS | | | [...] | | | POC | | | BBAAR TAMEZ | | | | | | [...] ELLIE | [address] | [place], [place] | | | BABAR TAMEZ OF TIMUR | [address] | [address] | | | TESTS | | | [...] ELLIE | [address] | [place], [place] | | | JOI POINT OF CARE | [facility] | [address] | | | TESTS | | | [...] ARGUETA | [address] | [place], [place] | | | BABAR TAMEZ OF CARE | [facility] | [address] | | | TESTS | | | [...] [facility] | [address] | [place] [address] | | | SERVICES, CORE | PARK [...] [facility] | [address] | [place] [address] | | | SERVICES, CORE | PARK [...] | | | LABORATORY | | | COOK ISLANDER | | | SERVICES, | | [...] | + + + + + | [facility] | [address] | [place] [address] | | | NAY KANG | GENNARO [...] - ELLIE | [address] | [place], [place] | | | BABAR TAMEZ OF CARE | [address] | [address] | | | TESTS | | | [...] | 60 - 99 mg/dL | [facility] - | | | GLUCOSE, | [...] ARGUETA | [address] | [place], [place] | | | BABAR TAMEZ OF [facility] | [address] | [address] | | | TESTS | | | | + + + + + X-RAY PORTABLE PELVIS 1 VIEW (03/12/2014 12:28 PM PDT) + + + + + + | Component | Value | Ref Range | Performed | Pathologist | | | | | At | Signature | + + + + + + | X-RAY | STUDY: NE PELVIS 1 VIEW | | | | [...] MARQUAM | [address] | [place], [place] | | | BABAR TAMEZ OF TIMUR | [address] | [address] | | | TESTS | | | [...] - ELLIE | [address] | [place], [place] | | | BABAR TAMEZ OF CARE | [facility] | [address] | | | TESTS | | | [...] ARGUETA | [address] | [place], [place] | | | JOI POINT OF CARE | [address] | [address] | | | TESTS | | | [...] + + | Performing | Address | City/State[facility] | Phone Number | | Organization | | | | + + + + + | [facility] | [address] | [place], [place] | | | BABAR TAMEZ OF TIMUR | [facility] | [address] | | | TESTS | | | [...] ELLIE | [address] | [place], [place] | | | BABAR TAMEZ OF TIMUR | [facility] | [address] | | | TESTS | | | [...] MARQUAM | [address] | [place], [place] | | | BABAR TAMEZ OF [facility] | [address] | [address] | | | TESTS | | | [...] ARGUETA | [address] | [place], [place] | | | BABAR TAMEZ OF CARE | [facility] | [address] | | | TESTS | | | [...] ELLIE | [address] | [place], [place] | | | BABAR TAMEZ OF CARE | [facility] | [address] | | | TESTS | | | [...] + + + | [facility] | [address] | [place], [place] | | | JOI POINT OF CARE | [address] | [address] | | | TESTS | | | [...] + + + + + | [facility] | [address] | [place] [address] | | | NAY KANG | GENNARO [...] | 60 - 99 mg/dL | [facility] - | | | GLUCOSE, | [...] ARGUETA | [address] | [place], [place] | | | JOI POINT OF CARE | [address] | [address] | | | TESTS | | | [...]
--- OUTSIDE RECORDS SUMMARY | ~2019-08-03 | XMS | Encounter Summary ---
Demographics + + + | Address | [address] | | | [place] [address] | + + + | Home Phone [...] Team Providers + +------+ + | Care Legislative Director Name | Role | Phone | [...] 2011 | Event | [address] | [address] | | | | | [facility] | [address] | | | | | Hospital Admitting | [place], [place] | | | | | Desk Located on the | [address] | | | | | 9th floor | [phone] | | | | | [place], [place] | | | | | | [address] | Genie Bennett MD | | | | | | [address] | | | | | | [place], | | | | | | [place] [address] | | | | | | [phone] | | | | | | | [...]
--- OUTSIDE RECORDS SUMMARY | ~2019-08-03 | XMS | Encounter Summary ---
Demographics + + + | Address | [address] | | | [place] [address] | + + + | Home Phone [...] Team Providers + +------+ + | Care Media Relations Intern Name | Role | Phone | + +------+ + | Kita Schafer MD | PCP | | + +------+ + Encounter Details +--------+ + + + + | Date | Type | Department | Care Team | Description | +--------+ + + + + | 02/15/ | Abstract | Digestive Health | Harinder [place], | | | 2011 | | Center at [facility] [address] | MD [address] | | | | | [address] | [place] [address] | | | | | Mailcode: Center | [phone] | | | | | for Health and | | | | | | [facility], [facility] [address] | | | | | | [place], [place] | | | | | | [address] | | | | | | [phone] | | | +--------+ + + + [...]
--- OUTSIDE RECORDS SUMMARY | ~2019-08-03 | XMS | Encounter Summary ---
Demographics + + + | Address | [address] | | | [place] [address] | + + + | Home Phone | | + + + | Preferred Language | Unknown | + + + | Marital Status | Single | + + + | Judaism Affiliation | 1041 | + + + | Race | Unknown | + + + | Ethnic Group | Unknown | + + + Author + + + | Author | [facility] | | | and Zekeana | + + + | Organization | [facility] | | | and [place] | [...] Team Providers + +------+ + | Care Aperture Mask Etcher Name | Role | Phone | + [...] [place] | | | | | [place] | [address] | | | | | [address] | | | | | | [phone] | | | +--------+ + + + [...] [address] | | | | | | [place] [address] | | | | | | [phone] | | | | | | | | +--------+---------+ + + + | 11/26/ | Office | Cardiology | Sissy Noyola | | | 2019 | Visit | | MD Marisol [address] | | | | | | [place] | | | | | | [address] | | | | | | | | +--------+---------+ + + + documented as of this encounter Visit Diagnoses + + | Diagnosis | + + | Lumbago | + + documented in this encounter"
--- OUTSIDE RECORDS SUMMARY | ~2019-08-03 | XMS | Encounter Summary ---
Demographics + + + | Address | [address] | | | [place] [address] | + + + | Home Phone [...] Author + + + | Author | [facility] | + + + | Organization | [facility] | + + + | Address [...] Team Providers + +------+ + | Care Hospitality Coordinator Name | Role | Phone | + +------+ + | Ino Ace MD | PCP | Unavailable | + +------+ + Encounter Details +--------+ + + + + | Date | Type | Department | Care Team | Description | +--------+ + + + + | 05/23/ | Er Registrar | Orthopaedics at | Jorge Walker MD | Hip Pain (Primary | | 2009 | | [facility] [address] | [address] | Dx) | | | | [address] | [place] | | | | | Mailcode: PV430 | [place], [place] | | | | | [facility] | [address] | | | | | [place], [place] | [phone] | | | | | [address] | | | | | | [phone] | | | +--------+ + + + [...] | | | | | Vaishnavi THOMASReviewer: ROGREIO Patiño | | | | Vaishnavi THOMASSTATUS [...] | | + +---------+ + + | [facility] DEPARTMENT OF | | | | | RADIOLOGY | | | | + +---------+ + + documented in this encounter Visit Diagnoses + + | Diagnosis | + + | Hip pain - Primary Pain in joint, pelvic region and thigh | + + documented in this encounter"
--- OUTSIDE RECORDS SUMMARY | ~2019-08-03 | XMS | Encounter Summary ---
Demographics + + + | Address | [address] | | | [place] [address] | + + + | Home Phone [...] Team Providers + +------+ + | Care Shot Peen Operator Name | Role | Phone | [...] | | | | | is, | [facility] | [address] | | | | | unspecified | & Fractur | Rd [place], | | | | | whether | [address] | [place] | | | | | generalized | [address] | [address] | | | | | or | [place], | Phone: | | | | | localized, | [place] [address] | [phone] | | | | | pelvic | Phone: | Fax: | | | | | region and | [phone] | [phone] | | | | | thigh | Fax: | | | | | | Procedures | [phone] | | | | | | REQUEST TO | | | | | | | SURGERY | | | | | | | TRADE ECONOMIST | | | | | | | FL TOTAL HIP | | | | | | | | | | | | | | ARTHROPLASTY | | | | | | | FL | | | | | | [...] | | | & Tereza | Joseph [place], | | | | | | [address] | [place] | | | | | | [address] | [address] | | | | | | [place], | Phone: | | | | | | [place] [address] | [phone] | | | | | | Phone: | Fax: | | | | | | [phone] | [phone] | | | | | | Fax: | | | | | | | [phone] | | +--------+--------+ + + + + [...] | | | | Mailcode: [id number] | [place], [place] | 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 Called to select specialty hospit[facility] right SUSHIL for and severe OA. Intake [...]
--- OUTSIDE RECORDS SUMMARY | ~2019-08-03 | XMS | Encounter Summary ---
Demographics + + + | Address | [address] | | | [place] [address] | + + + | Home Phone [...] Providers + +------+ + | Care Manager Agricultural Name | Role | Phone | + +------+ + | Gracie Mariano MD | PCP | | + +------+ + Encounter Details +--------+ + + + + | Date | Type | Department | Care Team | Description | +--------+ + + + + | 01/31/ | Hospital | Radiology/Imaging | Leroy Treviño MD | | | 2018 | Encounter | Lab at [facility] [address] | [address] [facility] | | | | | [address] Mailcode: | [address] | | | | | [facility] | [place], [place] | | | | | and Zack, | [address] | | | | | [facility] | [phone] | | | | | Floor [place], [place] | | | | | | [address] | | | | | | [phone] | | | +--------+ + + + [...]
--- OUTSIDE RECORDS SUMMARY | ~2019-08-03 | XMS | Encounter Summary ---
Demographics + + + | Address | [address] | | | [place] [address] | + + + | Home Phone [...] Team Providers + +------+ + | Care Dope Worker Name | Role | Phone | [...] Closed | | Orthopedics | Diagnoses | Dhiraj, | Kamila, | | | | | Ankylosing | Carole Townsend MD | MD Leroy | | | | | spondylitis | [address] | [address] | | | | | (HCC) | [address] | [address] | | | | | Heterotopic | [address] | Rd [place], | | | | | ossification | [place], [place] | [place] | | | | | of bone | [address] | [address] | | | | | Right | Phone: | Phone: | | | | | shoulder | [phone] | [phone] | | | | | pain Rt | Fax: | Fax: | | | | | shoulder | [phone] | [phone] | | | | | Procedures | [...] [place] | Right shoulder pain, | | 2016 | Visit | [facility] [address] | [address] | unspecified | | | | Ave Mailcode: [id number] | [place], [place] | chronicity (Primary | | | | [facility] | [address] | Dx); Shoulder | | | | and Healing, | [phone] | arthritis; | | | | | | Ankylosing | | | | Floor [facility] [place] | | spondylitis (HCC) | | | | [address] | | | | | | [phone] | | | +--------+---------+ + + + [...] mouth once daily., Disp: , Rfl: Called [facility] while patient was in the clinic, last [...]
--- OUTSIDE RECORDS SUMMARY | ~2019-08-03 | XMS | Encounter Summary ---
Demographics + + + | Address | [address] | | | [place] [address] | + + + | Home Phone [...] Team Providers + +------+ + | Care Tandem Mill Roller Name | Role | Phone | + [...] Treatment Planning | | 2012 | | Physicians [facility] | [address] | | | | | [address] | [facility] | | | | | Loop Mailcode: PV35 | [place], [place] | | | | | Physician's | [address] | | | | | Mariola [place], | [phone] | | | | | [place] [address] | | | | | | [phone] | | | +--------+ + + + [...]
--- OUTSIDE RECORDS SUMMARY | ~2019-08-03 | XMS | Encounter Summary ---
Demographics + + + | Address | [address] | | | [place] [address] | + + + | Home Phone [...] Team Providers + +------+ + | Care Db2 Developer Name | Role | Phone | [...] | | | | | [place] | | | | | | [place] [address] | | | +--------+--------+ + + + [...]
--- OUTSIDE RECORDS SUMMARY | ~2019-08-03 | XMS | Encounter Summary ---
Demographics + + + | Address | [address] | | | [place] [address] | + + + | Home Phone [...] Team Providers + +------+ + | Care Foster Care Therapist Name | Role | Phone | + [...] Abbott | | | | | | Eliel/[id number] [facility] | | | | | | [facility], | | | | | | [place] [address] | | | | | | [phone] | | | +--------+ + + + [...]
--- OUTSIDE RECORDS SUMMARY | ~2019-08-03 | XMS | Encounter Summary ---
Demographics + + + | Address | [address] | | | [place] [address] | + + + | Home Phone [...] Team Providers + +------+ + | Care Sales Clerk Supervisor Name | Role | Phone | + +------+ + | Kita Schafer MD | PCP | | + +------+ + Encounter Details +--------+------+ + + + | Date | Type | Department | Care Team | Description | +--------+------+ + + + | 02/19/ | Lab | Laboratory at [facility] | | Thrombosis | | 2010 | | [address] | | | | | | [place], [place] | | | | | | [address] | | | | | | [phone] | | | +--------+------+ + + + Social History + +-------+ [...] | + +--------+ + + + | DIFFERENTIAL | Routin | 02/19/2011 | | Results for this | | | e | 2:34 PM | | procedure are in the | | | | PDT | | results section. | + +--------+ + + + | CBC, WITH | Routin | 02/19/2011 | Thrombosis | Results for this | | DIFFERENTIAL | e | 2:34 PM | | procedure are in the | | | | PDT | | results section. | + +--------+ + + + | LUPUS INHIBITOR | Routin | 02/19/2011 | Thrombosis | Results for this | | EVALUATION WITH | e | 2:34 PM | | procedure are in the | | REFLEXES | | PDT | | results section. | + +--------+ + + + | ANTICARDIOLIPIN | Routin | 02/19/2011 | Thrombosis | Results for this | | IGG/M | e | 2:34 PM | | procedure are in the | | | | PDT | | results section. | + +--------+ + + + | APTT 1:1 MIX, PLASMA | Routin | 02/19/2011 | | Results for this | | | e | 2:34 PM | | procedure are in the | | | | PDT | | results section. | + +--------+ + + + | FERRITIN | Routin | 02/19/2011 | Thrombosis | Results for this | | | e | 2:34 PM | | procedure are in the | | | | PDT | | results section. | + +--------+ + + + | ANTI-B2 GLYCOPROTEIN | Routin | 02/19/2011 | Thrombosis | Results for this | | 1 GM | e | 2:34 PM | | procedure are in the | | | | PDT | | results section. | + +--------+ + + + documented in this encounter Results APTT 1:1 MIX, PLASMA (02/19/2011 2:34 PM PDT) + + + + + + | Component | Value | Ref Range | Performed | Pathologist | | | | | At | Signature | + + + + + + | APTT | Consistent with | | [facility] | | | INHIBITOR | inhibitor. | | DEPARTMENT | | | SCREEN | | | OF | | | | | | PATHOLOGY | | + + + + + + | APTT | 30.7 | 26.0 - 36.0 sec | [facility] | | | NORMPOOL,0 | | | DEPARTMENT | | | MINUTES | | | OF | | | | | | PATHOLOGY | | + + + + + + | APTT PAT,0 | 56.5 (H) | 26.0 - 36.0 sec | [facility] | | | MIN | | | DEPARTMENT | | | | | | OF | | | | | | PATHOLOGY | | + + + + + + | APTT | 37.5 | sec | [facility] | | | 1:1MIX,0MIN | | | DEPARTMENT | | | | | | OF | | | | | | PATHOLOGY | | + + + + + + | APTT | 29.5 | 26.0 - 36.0 sec | [facility] | | | NORMPOOL, | | | DEPARTMENT | | | 60 MINUTES | | | OF | | | | | | PATHOLOGY | | + + + + + + | APTT | 61.1 | sec | [facility] | | | PAT,60MIN | | | DEPARTMENT | | | | | | OF | | | | | | PATHOLOGY | | + + + + + + | APTT | 38.5 | sec | [facility] | | | 1:1MIX,60MI | | | DEPARTMENT | | | N | | | OF | | | | | | PATHOLOGY | | + + + + + + + + | Specimen | + + | | + + + + + | Narrative | Performed At | + + + | APTT 1:1 Mix Heparin absent. Cannot rule out Direct Thrombin | [facility] | | Inhibitors, i.e., Argatroban, Lepirudin, Bivalirudin.HEPARIN LEVEL = | DEPARTMENT OF | | <0.00 | PATHOLOGY | + + + + + + + + | Performing | Address | City/State/Zipcode | Phone Number | | Organization | | | | + + + + + | [facility] DEPARTMENT [facility] | [address] | [place] [address] | | | PATHOLOGY | [address] | | | + + + + + DIFFERENTIAL (02/19/2011 2:34 PM PDT) + +-------+ + + + | Component | Value | Ref Range | Performed | Pathologist | | | | | At | Signature | + +-------+ + + + | NEUTROPHIL | 64 | 50 - 70 % | [facility] | | | % | | | DEPARTMENT | | | | | | OF | | | | | | PATHOLOGY | | + +-------+ + + + | LYMPHOCYTE | 26 | 18 - 42 % | [facility] | | | % | | | DEPARTMENT | | | | | | OF | | | | | | PATHOLOGY | | + +-------+ + + + | MONOCYTE % | 7 | 2 - 8 % | [facility] | | | | | | DEPARTMENT | | | | | | OF | | | | | | PATHOLOGY | | + +-------+ + + + | EOS % | 2 | 1 - 3 % | [facility] | | | | | | DEPARTMENT | | | | | | OF | | | | | | PATHOLOGY | | + +-------+ + + + | BASO % | 1 | <3 % | [facility] | | | | | | DEPARTMENT | | | | | | OF | | | | | | PATHOLOGY | | + +-------+ + + + | NEUTROPHIL | 7.5 | 1.8 - 7.7 K/cu | [facility] | | | # | | mm | DEPARTMENT | | | | | | OF | | | | | | PATHOLOGY | | + +-------+ + + + | LYMPHOCYTE | 3.1 | 1.0 - 4.8 K/cu | [facility] | | | # | | mm | DEPARTMENT | | | | | | OF | | | | | | PATHOLOGY | | + +-------+ + + + | MONOCYTE # | 0.8 | <0.9 K/cu mm | [facility] | | | | | | DEPARTMENT | | | | | | OF | | | | | | PATHOLOGY | | + +-------+ + + + | EOS # | 0.2 | <0.6 K/cu mm | [facility] | | | | | | DEPARTMENT | | | | | | OF | | | | | | PATHOLOGY | | + +-------+ + + + | BASO # | 0.1 | <0.2 | [facility] | | | | | | DEPARTMENT | | | | | | OF | | | | | | PATHOLOGY | | + +-------+ + + + + + | Specimen | + + | | + + + + + + + | Performing | Address | City/State/Zipcode | Phone Number | | Organization | | | | + + + + + | [facility] DEPARTMENT OF | [address] | [place] [address] | | | PATHOLOGY | [address] | | | + + + + + FERRITIN, SERUM (02/19/2011 2:34 PM PDT) + [...] | LABORATORY | | | | at [facility], | | | | | | [place], [place]. | | | | + + + + + + + + | Specimen | + + | Blood - Blood | + + + + + | Narrative | Performed At | + + + | [facility] [address] | [address] | | [place] [address] [facility] [employer] [facility] | REGIONAL | | [place] [address] | LABORATORY | + + + + + + + + | Performing | Address | City/State/Zipcode | Phone Number | | Organization | | | | + + + + + | [facility] | [address] | [place] [address] | | | LABORATORY | | | [...] | [facility] DEPARTMENT OF | [address] | [place] [address] | | | PATHOLOGY | [address] [...] | [facility] | | obtained with the Allin corporationVA QUANTA Lite B2GP1 IgGMA TRIPP. B2GP1 | DEPARTMENT OF | | IgGMA values obtained with different inspector glass or mirror's assay methods | PATHOLOGY | | may [...] + + + + + | [facility] | [address] [facility] | [place] [address] | | | PATHOLOGY | [address] [...] | [facility] DEPARTMENT OF | [address] | [place] [address] | | | PATHOLOGY | [address] [...] + + + + + | [facility] | [address] | [place] [address] | | | PATHOLOGY | [address] | | | + + + + + documented in this encounter Visit Diagnoses + + | Diagnosis | + + | Thrombosis Embolism and thrombosis of unspecified site | + + documented in this encounter"
--- OUTSIDE RECORDS SUMMARY | ~2019-08-03 | XMS | Encounter Summary ---
Demographics + + + | Address | [address] | | | [place] [address] | + + + | Home Phone | | + + + | Preferred Language | Unknown | + + + | Marital Status | Single | + + + | Gnosticist Affiliation | BAP | + + + [...] Team Providers + +------+ + | Care Wall Mirror Department Supervisor Name | Role | Phone | + +------+ + | Gracie Mariano MD | PCP | | + +------+ + Encounter Details +--------+ + + + + | Date | Type | Department | Care Team | Description | +--------+ + + + + | 11/29/ | Telephone | [facility] | Adriano Chavez, | | | 2013 | | [place] [address] [address] | | | | | | [address] | | | | | | Mailcode: [place] | | | | | | [facility] and | | | | | | [facility] [address] | | | | | | [place], [place] | | | | | | [address] | | | | | | [phone] | | | +--------+ + + + [...]
--- OUTSIDE RECORDS SUMMARY | ~2019-08-03 | XMS | Encounter Summary ---
Demographics + + + | Address | [address] | | | [place] [address] | + + + | Home Phone [...] Team Providers + +------+ + | Care Product Picker Name | Role | Phone | + +------+ + | Kita Schafer MD | PCP | | + +------+ + Encounter Details +--------+------+ + + + | Date | Type | Department | Care Team | Description | +--------+------+ + + + | 02/19/ | Lab | Laboratory at [facility] | | Thrombosis | | 2010 | | [address] | | | | | | [place], [place] | | | | | | [address] | | | | | | [phone] | | | +--------+------+ + + + [...] DEPARTMENT OF | [address] | [place] [address] | | | PATHOLOGY | [address] [...] DEPARTMENT OF | [address] | [place] [address] | | | PATHOLOGY | [address] [...] LABORATORY | | | | at [facility], | | | | | | [place], [place]. | | | | + + + + + + + + | Specimen | + + | Blood - Blood | + + + + + | Narrative | Performed At | + + + | [facility] ([facility]) [address] | [address] | | [place] [address] [place] [employer] | REGIONAL | | [place] [address] | LABORATORY | + + + + + + + + | Performing | Address | City/State/Zipcode | Phone Number | | Organization | | | | + + + + + | [facility] | [address] | [place] [address] | | | LABORATORY | | | [...] DEPARTMENT OF | [address] | [place] [address] | | | PATHOLOGY | [address] [...] | [facility] | | obtained with the MotistaVA QUANTA Lite B2GP1 IgGMA TRIPP. B2GP1 | DEPARTMENT OF | | IgGMA values obtained with different learning and development officer's assay methods | PATHOLOGY | | may [...] + + + + + | [facility] | [address] [facility] [address] | [place] [address] | | | PATHOLOGY | [address] [...] DEPARTMENT OF | [address] | [place] [address] | | | PATHOLOGY | [address] [...] + + + + + | [facility] | [address] | [place] [address] | | | PATHOLOGY | [address] | | | + + + + + documented in this encounter Visit Diagnoses + + | Diagnosis | + + | Thrombosis Embolism and thrombosis of unspecified site | + + documented in this encounter"
--- OUTSIDE RECORDS SUMMARY | ~2019-08-03 | XMS | Encounter Summary ---
Demographics + + + | Address | [address] | | | [place] [address] | + + + | Home Phone [...] Team Providers + +------+ + | Care Risk Control Consultant Name | Role | Phone | [...] | | | | Ankylosing | Dorothy M, | | | | | | spondylitis | PA-C [address] | | | | | | ([facility]) | [address] | | | | | | Procedures | [address] | | | | | | PHYSICAL | Rd | | | | | | THERAPY | [place], [place] | | | | | | REFERRAL | [address] | | +--------+--------+ + + + + [...] Therapy | | 2013 | | [facility] [address] | [address] | Guidance | | | | [address] | [facility] | | | | | Mailcode: PV430 | [place], [place] | | | | | Physician's [facility]ola | [address] | | | | | [place], [place] | [phone] | | | | | [address] | | | | | | [phone] | | | +--------+ + + + [...]
--- OUTSIDE RECORDS SUMMARY | ~2019-08-03 | XMS | Clinical Summary ---
Demographics + + + | Address | [address] | | | [place] [address] | + + + | Home Phone [...] + + + | Author | [facility] [employer] (Historical as of | | | 04-08-19) | + + + | Organization | [facility] [employer] (Historical as of | | | 04-08-19) | + + + | Address | Unknown | + + + | Phone | Unavailable | + + + Support + + +---------+ + | Name | Relationship | Address | Phone | + + +---------+ + | Di Cisneros | ECON | Unknown | | + + +---------+ + Care Team Providers + +------+ + | Care Head Of Maintenance Name | Role | Phone | + [...] | | | + + +--------+---------+------+------+-------+ | allopurinol | Take 100 mg by mouth | | | | | Activ | | (ZYLOPRIM) 100 MG | daily. | | | | | e | | tablet | | | | | | | + + +--------+---------+------+------+-------+ | Cholecalciferol | Take 1 tablet by | | | | | Activ | | 2000 units CAPS | mouth. | | | | | e | + + +--------+---------+------+------+-------+ | folic acid | Take 1 mg [...] | | + + +--------+---------+------+------+-------+ | insulin glargine | Inject into the [...] + +--------+---------+------+------+-------+ | insulin aspart | Inject into the [...] | | | + + +--------+---------+------+------+-------+ | levothyroxine | Take 50 mcg by [...] | | + + +--------+---------+------+------+-------+ | morphine (MSIR) 15 | Take 15 [...] | | + + +--------+---------+------+------+-------+ | morphine (MSIR) 20 | Take 60 [...] | | | + + +--------+---------+------+------+-------+ | Multiple | Take 1 tablet by [...] | | + + +--------+---------+------+------+-------+ | lisinopril | Take 1 tablet by | 30 | 0 | 06/0 | | Activ | | (ZESTRIL) 20 MG | mouth daily. | tablet | | 2/20 | | e | | tablet | | | | 17 | | | + + +--------+---------+------+------+-------+ | acetaminophen | Take 1 tablet by | | | 07/0 | | Activ | | (TYLENOL) 500 MG | mouth every 8 | | | 3/20 | | e | | tablet | (eight) hours as | | | 18 | | | | | needed. | | | | | | + + +--------+---------+------+------+-------+ | docusate sodium | Take 1 capsule by | | | | | Activ | | (COLACE) 100 MG | mouth daily as | | | | | e | | capsule | needed. | | | | | | + + +--------+---------+------+------+-------+ | HYDROmorphone | Take 1 tablet by | | | 07/0 | | Activ | | (DILAUDID) 2 MG | mouth daily as | | | 320 | | e | | tablet | needed. | | | 18 | | | + + +--------+---------+------+------+-------+ | medical marijuana | once daily. 3 grams | | | | | Activ | | | per day | | | | | e | + + +--------+---------+------+------+-------+ | rivaroxaban | Take 1 tablet by | | | 07/2 | | Activ | | (XARELTO) 20 MG | mouth daily. | | | 620 | | e | | tablet | | | | 18 | | | + + +--------+---------+------+------+-------+ | SUPER B COMPLEX/C | Take by mouth. | | | | | Activ | | PO | | | | | | e | + + +--------+---------+------+------+-------+ | clindamycin | Take 300 mg by mouth | | | | | Activ | | (CLEOCIN) 300 MG | every 6 (six) | | | | | e | | capsule | hours. | | | | | | + + +--------+---------+------+------+-------+ | isosorbide | Take 1 tablet by | 30 | 11 | 07/0 | 06/3 | Activ | | mononitrate (IMDUR) | mouth daily. | tablet | | 1/20 | 0/20 | e | | 30 MG 24 hr tablet | | | | 19 | 20 | | + + +--------+---------+------+------+-------+ | metoprolol | Take 0.5 tablets by | 30 | 11 | 07/0 | 06/3 | Activ | | (LOPRESSOR) 25 MG | mouth 2 (two) times | tablet | | 1/20 | 0/20 | e | | tablet | daily. | | | 19 | 20 | | + + +--------+---------+------+------+-------+ | aspirin 81 MG | Take 81 mg by mouth | | | | | Activ | | tablet | daily. | | | | | e | + + +--------+---------+------+------+-------+ | atorvastatin | Take 1 tablet by | 90 | 3 | 07/1 | 07/ | Activ | | (LIPITOR) 40 MG | mouth nightly. | tablet | | 5/20 | 4/20 | e | | tablet | | | | 19 | 20 | | + + +--------+---------+------+------+-------+ | donepezil | Take 1 tablet by | 40 | 0 | 07/3 | 07/3 | Activ | | (ARICEPT) 5 MG | mouth nightly. ONE | tablet | | 1/20 | 0/20 | e | | tablet | TIME urgent refill | | | 19 | 20 | | | | to cover for DrKerrie | | | | | | | | Kathy. 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 | 02/20/2019 | | pectoris (HCC) | | + + + | Essential hypertension | 02/20/2019 | + + + | Difficult intubation | 02/20/2019 | + + + + + | Overview: Overview: | | glidescope used for intubation | + + + + + | Driving safety issue [...] | 03/10/2018 | + + + | Closed displaced fracture of second cervical vertebra (HCC) | 02/15/2018 | + + + | Numbness and [...] mass | 01/07/2017 | + + + | Heterotopic ossification | 03/14/2014 | + + + | Chronic pain | 03/16/2013 | + + + | Diabetes mellitus (HCC) | 03/16/2013 | + + + | Pruritus | 03/16/2013 | + + + | Cholecystitis | 03/10/2013 | + + + | Ventral hernia | 03/10/2013 | + + + | Ankylosing spondylitis (HCC) | 05/23/2009 | + + + | Osteoarthrosis, hip | 05/23/2009 | + + + + + | Overview: Overview: | | Right hip | + + Family History + +------+ + + | [...] | Blood Pressure | 119/55 | 03/01/2019 7:15 PM PDT | + + + + | Pulse | 82 | 03/01/2019 7:15 PM PDT | + + + + | Temperature | 36.7 C (98 F) | 03/01/2019 7:06 PM PDT | + + + + | Respiratory Rate | 18 | 03/01/2019 7:06 PM PDT | + + + + | Oxygen Saturation | 93% | 03/01/2019 7:15 PM PDT | + + + + | Inhaled Oxygen | - | - | | Concentration | | | + + + + | Weight | 110 kg (242 lb 8.1 | 03/01/2019 12:48 PM PDT | | | oz) | | + + + + | Height | 176.5 cm (5' 9.5") | 03/01/2019 12:48 PM PDT | + + + + | Body Mass Index | 35.3 | 03/01/2019 12:48 PM PDT | + + + + Plan of Treatment +--------+ + + + + | Date | Type | Specialty | Care Team | Description | +--------+ + + + + | 09/14/ | Initial | | Sarahi Jade, | | | 2019 | consult | | MD Sushil Yang | | | | | | [place] | | | | | | [address] | | | | | | | [...] | | | | | (#1) | 9 | | | + [...] | 10/22/ | 8103.0 | | - [id number]: Qty: 1 | | | MEDICAL - | | 2019 | 210S / | | on 01/09/2017 by Kadi, | | | GLBU | | | | | [place] | | | | | | /[id number] | | | | | | | | [id number] | + +------+------+ +--------+--------+--------+ | Quartex Lordotic [...] GLOBUS | | | 8115.0 | | [id number] - SnaImplanted: | | | MEDICAL - [...] | | 10/05/ | 8115.0 | | [id number] - | | | MEDICAL - | | 2019 | 120S / | | [id number]: Qty: 1 on | | | GLBU | | | | | 01/09/2017 by Kadi, | | | | | | /[id number] | | Mendez Nicole MD | | | | | | 4CG | + +------+------+ +--------+--------+--------+ | Graft Duragen 1x1in - | | | INTEGRA | | / | ID-110 | | [id number]: Qty: 1 on | | | LIFESCIENCE | | 2020 | 1 / | | 01/09/2017 by Kadi, | | | S YOLANDA - | | | /[id number] | | Mendez Nicole MD | | [...] | + +------+------+ +--------+--------+--------+ | Cap Yasmany Stallworthd - SnaImplanted: | | | GLOBUS | | | [id number] | | Qty: 12 on 01/09/2017 by | | | MEDICAL - | | | 001 / | | Mendez Wallis, | | | GLBU | | | / | | | [...] / Lot | + +------+------+ +--------+--------+--------+ | Dakota Crystal - SnaExplanted: | | | GLOBUS | [...] +------+-------+ + | MEDICARE | MEDICA | [id number] | | | [address] | | | RE | | | | [place] [phone] | | | IP-OP | | | | | + +--------+ +------+-------+ + | MEDICAID | MEDICA | [id number] | | | [address] | | | ID | | | | MAYURI CARRERO | | | [place] | | | | [phone] | + +--------+ +------+-------+ + | [facility] | YELLOW | [id number] | | | | | PLANS | [...] Self | [birth year] | Home: | [address] | | | al/Fam | | 1 | [phone] [place] [id number] | | | blaire | | | [phone] | | + +--------+ +--------+ + +
--- OUTSIDE RECORDS SUMMARY | ~2019-08-03 | XMS | Encounter Summary ---
Demographics + + + | Address | [address] | | | [place] [address] | + + + | Home Phone [...] Team Providers + +------+ + | Care Pillowcase Turner Name | Role | Phone | [...] Closed | | Rheumatology | Diagnoses | [facility] | | | | | Ankylosing | MD Adriano | [address] [address] | | | | | spondylitis | [address] | Pavilion | | | | | (HCC) | Ave | Loop | | | | | Procedures | [place], [place] | Mailcode: | | | | | CONSULT TO | [address] | OP09 | | | | | RHEUMATOLOGY | | Physician's | | | | | | | [address] | | | | | | | Floor | | | | | | | [place], [place] | | | | | | | [address] | | | | | | | Phone: | | | | | | | [phone] | | | | | | | Fax: | | | | | | | [phone] | +--------+--------+ + + + + Encounter Details +--------+---------+ + + + | Date | Type | Department | Care Team | Description | +--------+---------+ + + + | 12/07/ | Office | Rheumatology at | Yulisa Hearn, | Ankylosing | | 2013 | Visit | [facility] | [address] | spondylitis (HCC) | | | | [address] | [address] | (Primary Dx) | | | | Loop Mailcode: [id number] | [place], [place] | | | | | Physician's | [address] | | | | | [address] [place], | [phone] | | | | | [place] [address] | | | | | | [phone] | | | +--------+---------+ + + + [...] findings, assessment and plan. Celina Soto M.D. [address] [place] [address] Mailcode: [id number] [facility] [place] [address] Yulisa Winchester MD - 8:26 AM PDT RHEUMATOLOGY FOLLOW UP-12/07/13 Last visit 05/05 CC: Chief Complaint Patient presents with Ankylosing spondylitis HPI: This is a 62 y.o. male, here for follow up of ankylosing spondylitis. -Diagnosed with in late 70' in [place] by his PCP, but was never referred [...] This was postponed sec to his uncontrolled [id number]-[id number]-3.3 in 07/05. Has pain and stiffness in [...] se refer to patient queationnaire scanned in [facility]: Past Medical History Diagnosis Date Diabetes [...] bilateral hip arthrop athy and probable erosions [place] PELVIS 1 VIEW, 05/10/12 There has been [...] and plan YULISA HEARN MD RHEUMATOLOGY FELLOWS [facility] [facility] Mailcode: [id number] [place] [address] documented in this en counter Plan of [...] | + + + + + | [facility] | [address] | [place] [address] | | | SERVICES, SPECIAL | [address] | | | | IMM + [...] + | [facility] | [address] | [place] [address] | | | [place] | | | [...] | | | LABORATORY | | | [facility] | | | SERVICES, | | | [...] | + + + + + | [facility] | [address] | [place] [address] | | | SERVICES, NAY | [address] | | | + + + + + documented in this encounter Visit Diagnoses + + | Diagnosis | + + | Ankylosing spondylitis (HCC) - Primary Ankylosing spondylitis | + + documented in this encounter
--- OUTSIDE RECORDS SUMMARY | ~2019-08-03 | XMS | Encounter Summary ---
Demographics + + + | Address | [address] | | | [place] [address] | + + + | Home Phone [...] + + + | Author | [facility] | + + + | Organization | [facility] | + + + | Address [...] Team Providers + +------+ + | Care Mammalogist Name | Role | Phone | + [...] Anna | | | | | [facility] | [address] [place], | | | | | Hospital Admitting | [place] [address] | | | | | Desk Located on the | [phone] | | | | | 9th floor | | | | | | [place], [place] | [place], | | | | | [address] | [employer] [address] | | | | | | [address] | | | | | | [place], [place] | | | | | | [address] | | | | | | [phone] | | | | | | | [...] | Periph | 3006--contact admin for | [employer] | Discharge | | eral | questions.); [...]
--- OUTSIDE RECORDS SUMMARY | ~2019-08-03 | XMS | Encounter Summary ---
Demographics + + + | Address | [address] | | | [place] [address] | + + + | Home Phone [...] Team Providers + +------+ + | Care Storm Sash Maker Name | Role | Phone | [...] thigh joint | [address] | [address] [place], | | | | | Ankylosing | [place], [place] | [place] | | | | | spondylitis | [address] | [address] | | | | | ([facility]) | Phone: | Phone: | | | | | Procedures | [phone] | [phone] | | | | | REQUEST TO | Fax: | Fax: | | | | | SURGERY | [phone] | [phone] | | | | | CEMENT CONVEYOR OPERATOR | | | | | | | ND TOTAL HIP | | | | | [...] | | | | REFERRING | [facility] [place], | | | | | | PROVIDER PER | [place] | | | | | | PT | [address] | | | | | | | Phone: | | | | | | | [phone] | | | | | | | Fax: | | | | | | | [phone] | +--------+--------+ + + + + Encounter [...] | | | | Mailcode: [id number] | [place], [place] | | | | | [facility] | [address] | | | | | [place], [place] | [phone] | | | | | [address] | | | | | | [phone] | | | +--------+---------+ + + + [...] coumadin now. Was also recently evaluated at [facility] in [facility] for confusion and the w/u was negative. [...] gen nad cv effort easy Crouched gait [place] bilat LE with 5/5 bilat ehl/apf/adf 2+ [...] through his PCP as he lives near [place]. I will send a note to see [...]
--- OUTSIDE RECORDS SUMMARY | ~2019-08-03 | XMS | Encounter Summary ---
Demographics + + + | Address | [address] | | | [place] [address] | + + + | Home Phone [...] Providers + +------+ + | Care Manager Merchandise Name | Role | Phone | + [...] | | | on | | Raghavendra Hoyos, | Anticoag Ppv | | | | | Cholecystiti | MD [address] | [address] | | | | | s | [address] | [address] | | | | | Procedures | [place] | Physician's | | | | | CONSULT TO | [place], [place] | Pavilion | | | | | ANTICOAGULAT | [address] | [address] | | | | | [facility] | Phone: | Physician's | | | | | | [phone] | Pavilion | | | | | | Fax: | [place], [place] | | | | | | [phone] | [address] | | | | | | | Phone: | | | | | | | [phone] | | | | | | | Fax: | | | | | | | [phone] | +--------+--------+ + + + + Reason [...] | | 2012 - | Encounter | [address] | [address] | | | | | [place], [place] | [place], | | | 03/19/ | | [address] | [place] [address] | | | 2012 | | [phone] | [phone] | | | | | | | | | | | | Jorge Walker MD | | | | | | [address] | | | | | | [place], | | | | | | [place] [address] | | | | | | [phone] | | | | | | | [...] the resident s note. MILTON RODRÍGUEZ MD [facility] [address] [place] [address] romRaghavendra mantilla MD - 0 03/20/2013 3:22 [...] of CVA. He was recently discharged from [facility] ([place], [place]) for acute cholecystitis. On 03/06/13 had sudden onset epigastric pain and self-presented to the hospital. Gallbladder US at that art e showed gallstones and possible acute cholecystitis. The patient eventually improved and wa s discharged for evaluation at [facility] E[facility] clinic. Prior abdominal surgery includes [...] might be different f rom the original. [facility] DEPARTMENT OF SURGERY EMERGENCY GENERAL SURGERY Division [...] other applicable data points. Please refer to [facility] for this information . PHYSICAL EXAM: [...] resol ution of const[place] [phone] pager number [facility] A [address] [place] [address] arTez mcallister NP - 03/17/2013 2:[address] [facility] DEPARTMENT OF SURGERY EMERGENCY GENERAL SURGERY Division [...] other applicable data points. Please refer to [facility] for this information . PHYSICAL EXAM: [...] ABX on Probi[place] [phone] pager number [facility] A [address] [facility] [address] Anais Mccarthy MD - 03/16/2013 8:58 AM PDT [facility] DEPARTMENT OF SURGERY EMERGENCY GENERAL SURGERY Division [...] other applicable data points. Please refer to [facility] for this information . PHYSICAL EXAM: [...] None Fluids: Saline locked Feeding: Diabetic Analgesia: LITURGICAL MUSIC DIRECTOR 0.6/6mins Sedation: not indicated Thromboprophylaxis: enoxaparin, SCDs Head of bed: > 30 Ulcer prophylaxis: None Glycemic control: Insulin lispro Activity/PT/OT: Up ad farzana Yogurt: ABX on Probiotics: None TEZ RAINEY NP [facility] A [facility] [address] Nathalia Mccarthy MD - 03/15/2013 10:24 AM PDTFormatting of this note might be different from the origina l. [facility] DEPARTMENT OF SURGERY EMERGENCY GENERAL SURGERY Division of Trauma and Critical Care Attending Physician: Raf Tello MD Progress Note Note Date: 03/15/2013 Admission Date: 03/10/2013 JOSE RAFAEL CISNEROS, Hospital Day #5 INTERVAL HISTORY and SUBJECTIVE: No acute events overnight. Pt still complaining of some abdominal tightness. REVIEW OF SYSTEMS: Pain: Pain is still 03/01 with increased LITURGICAL MUSIC DIRECTOR 03/14 Flatus: NO Tolerating diet: Tolerating clears Nausea/Vomiting: None Bowel movement: NO Progressing with Physical Therapy: None, up ad farzana. The remainder of the complete review of system was negative. OBJECTIVE: I have reviewed the interval history and events. I have revewed the patients medications, l abs, vitals, and other applicable data points. Please refer to [facility] for this information . PHYSICAL EXAM: [...] chair TID Acute on Chronic Pain - LITURGICAL MUSIC DIRECTOR dilaudid increase dose range and lockout. - [...] None Fluids: Saline locked Feeding: Clears Analgesia: LITURGICAL MUSIC DIRECTOR 0.6/6mins Sedation: not indicated Thromboprophylaxis: enoxaparin, SCDs Head of bed: > 30 Ulcer prophylaxis: None Glycemic control: Insulin lispro Activity/PT/OT: Up ad farzana Yogurt: ABX on Probiotics: [place] [phone] pager number [facility] A [address] [place] [address] arary Tez S , SIZE ROLLER OPERATOR - 03/14/2013 9:[address] [facility] DEPARTMENT OF SURGERY EMERGENCY GENERAL SURGERY Division of Trauma and Critical Care Attending Physician: Raf Tello MD Progress Note Note Date: 03/14/2013 Admission Date: 03/10/2013 JOSE RAFAEL CISNEROS, Hospital Day #4 INTERVAL HISTORY and SUBJECTIVE: history of chronic pain. LITURGICAL MUSIC DIRECTOR with pain. Will adjust dos e and [...] other applicable data points. Please refer to [facility] for this information . PHYSICAL EXAM: [...] chair TID Acute on Chronic Pain - LITURGICAL MUSIC DIRECTOR dilaudid increase dose range and lockout. - [...] D51/2 with 20kl Feeding: NPO Analgesia: dilaudid LITURGICAL MUSIC DIRECTOR Sedation: not indicated Thromboprophylaxis: enoxaparin 120mg bid for Antiphospholipid syndrome Head of bed: > 30 Ulcer prophylaxis: 2 Glycemic control: adequate Activity/PT/OT: Ongoing Yogurt: ABX on Probiotics: No TEZ RAINEY NP '[phone] pager number [facility] [address] [facility] [address] Richie Toth MD - 03/14/2013 1:52 AM PDT [facility] DEPARTMENT OF SURGERY EMERGENCY GENERAL SURGERY Division [...] other applicable data points. Please refer to [facility] for this information . 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 - up ad farzana TID+[place] [phone] pager number [facility] A [address] [facility] [address] Ricky Mosley MD - 03/13/2013 8:35 AM [...] Murry MD - 03/12/2013 7:10 AM PDT [facility] DEPARTMENT OF SURGERY EMERGENCY GENERAL SURGERY PROGRESS NOTE: Note Date: 03/12/2013 Admission Date: 03/10/2013 JOSE RAFAEL CISNEROS, [id number] Hospital Day #2 SUBJECTIVE: - irritation and [...] follow up: EGS TBD. ARTHUR HERRERA MD [facility] [address] [place] [address] Diagnoses: [id number] Cholecystitis [id number] Ventral hernia V72.83 Other specified pre-operative examination attArthur chauhan MD - 03/11/2013 7:02 AM PDT [facility] DEPARTMENT OF SURGERY Attending Physician: Raf Tello MD Progress Note Note Date: 03/11/2013 Admission Date: 03/10/2013 JOSE RAFAEL CISNEROS, [id number] Hospital Day #1 INTERVAL HISTORY and SUBJECTIVE: [...] other applicable data points. Please refer to [facility] for this information . PHYSICAL EXAM: [...] Ventral hernia LABS: Recent Labs 12/28/12 1224 03/02/13111503/10/13 1821 03/10/137 03/11/13 0959 NA 135* -- 139 -- [...] up: EGS TBD. ARTHUR HERRERA MD Pager: [phone] [facility] [address] [facility] [place] [address] documented in this en counter [...] | | | | | | 03/13/2013 until | | | | | | 03/13/2013 [...] | + +--------+ + + + | HEMOGLOBIN-CANDELARIA, POC | Routin | 03/13/2013 | Cholecystitis [...] + + | [facility] | [address] [facility] | [place] [address] | | | SERVICES, CORE | [address] | | | + + + + + MAGNESIUM, PLASMA (03/19/2013 7:22 AM PDT) + +-------+ + + + | Component | Value | Ref Range | Performed | Pathologist | | | | | At | Signature | + +-------+ + + + | MAGNESIUM,P | 2.5 | 1.8 - 2.5 mg/dL | [facility] [...] | + + + + + | [facility] | [address] | [place] [address] | | | SERVICES, CORE | MARY [...] | | | LABORATORY | | | [place] | | | SERVICES, | | | [...] the MDRD equation recommended by the | [facility] | | National Kidney Disease Education [...] + | [facility] | [address] | [place] [address] | | | SERVICES, CORE | [address] [...] | + + + + + | [facility] | [address] | [place] [address] | | | SERVICES, NAY | MARY [...] [facility] | [address] | [place], [place] | | | BABAR TAME[place] OF [place] | [facility] | [address] | | | TESTS | | | [...] [facility] | [address] | [place], [place] | | | JOI POINT OF CARE | [address] | [address] | | | TESTS | | | [...] [facility] | [address] | [place] [address] | | | SERVICES, NAY | MARY [...] + | [facility] | [address] | [place] [address] | | | SERVICES, CORE | [address] [...] | | | LABORATORY | | | [place] | | | SERVICES, | | | [...] | + + + + + | [facility] | [address] | [place] [address] | | | PEARL, NAY | MARY [...] | + + + + + | [facility] | [address] [facility] | [place] [address] | | | SERVICES, NAY | MARY [...] [facility] | [address] | [place], [place] | | | JOI POINT OF CARE | [address] | [address] | | | TESTS | | | [...] [facility] | [address] | [place], [place] | | | BAB[place] | [address] | [address] | | | TESTS | | | [...] VIEW | | | | | VIEW (KUQamar) | 03/17/13 16:51:00 | | | | | | HISTORY: Abdominal pain | | | | | | postoperative. | | | | | | COMPARISON: 08/11/12. | | | | | | FINDINGS: Postoperative | | | | | | changes from | | | | | | intra-abdominal surgery | | | | | | are present. | | | | | | Surgicalstaples | | | | | | project over the mid | | | | | | abdomen and spine. | | | | | | Bowel loops are | | | | | | nondilated.Enteric | | | | | | contrast presumably | | | | | | relates to proceeding | | | | | | cholangiography. There | | | | | | is noportal venous gas. | | | | | | A left total hip | | | | | | arthroplasty is present | | | | | | which appearsunchanged. | | | | | | Changes from | | | | | | ankylosing spondylitis | | | | | | are seen in the spine, | | | | | | pelvisand right hip. | | | | | | No acute osseous | | | | | | abnormality. [...] | | | | signed / ESTUARDO BRADFORD | | | | | | 03/18/2013 11:44 AM | | | | + + [...] [facility] | [address] | [place], [place] | | | BABAR TAMEZ OF CARE | [address] | [address] | | | TESTS | | | [...] | + + + + + | [facility] | [address] | [place] [address] | | | SERVICES, CORE | PARK [...] | + + + + + | [facility] | [address] | [place] [address] | | | SERVICES, CORE | MARY [...] | | | LABORATORY | | | [place] | | | SERVICES, | | | [...] [facility] | [address] | [place] [address] | | | SERVICES, CORE | [address] [...] | + + + + + | [facility] | [address] | [place] [address] | | | PEARL, NAY | MARY [...] [facility] | [address] | [place], [place] | | | BABAR TAME[place] OF [place] | [address] | [address] | | | TESTS | | | [...] [facility] | [address] | [place], [place] | | | JOI POINT OF CARE | [address] | [address] | | | TESTS | | | [...] [facility] | [address] | [place], [place] | | | BABAR TAMEZ OF CARE | [address] | [address] | | | TESTS | | | [...] [facility] | [address] | [place] [address] | | | SERVICES, CORE | [address] [...] | + + + + + | [facility] | [address] [facility] | [place] [address] | | | SERVICES, CORE | MARY [...] | | | LABORATORY | | | [place] | | | SERVICES, | | | [...] the MDRD equation recommended by the | [facility] | | National Kidney Disease Education Program. [...] | + + + + + | [facility] | [address] | [place] [address] | | | SERVICES, CORE | MARY [...] (H) | 0.90 - 1.20 INR | [facility] | | | | | | LABORATORY [...] | + + + + + | [facility] | [address] | [place] [address] | | | NAY KANG | MARY [...] (H) | 60 - 99 mg/dL | [facility] - | | | GLUCOSE, | [...] [facility] | [address] | [place], [place] | | | BABAR TAMEZ OF [place] | [address] | [address] | | | TESTS | | | [...] [facility] | [address] | [place], [place] | | | BAB[facility] OF [place] | [facility] | [address] | | | TESTS | | | | + + + + + CAPILLARY BLOOD GLUCOSE (NO CHG) POC (03/15/2013 10:04 PM PDT) + +---------+ [...] [facility] | [address] | [place], [place] | | | BABAR TAMEZ OF CARE | [facility] | [address] | | | TESTS | | | [...] (H) | 60 - 99 mg/dL | [facility] - | | | GLUCOSE, | [...] [facility] | [address] | [place], [place] | | | BABAR TAMEZ OF [facility] | [address] | [address] | | | TESTS | | | [...] (H) | 60 - 99 mg/dL | [facility] [...] + + + + + | [facility] | [address] | [place], [place] | | | BABAR TAMEZ OF [place] | [facility] | [address] | | | TESTS | | | [...] Unfractionated: 0.35 - 0.70 U/mL Enoxaparin, LMWH: 0.70 | LABORATORY | | - 1.20 U/mL Dalteparin, LMWH: 0.70 - 1.20 U/mL | SERVICES, CORE | | Tinzaparin, LMWH: Therapeutic range not established. | | | Preliminary studies suggest range | | | similar to dalteparin. Clinical | | | correlation required. | | | Heparin levels may be unreliable for: | | | Total bilirubin >28.8 mg/dL | | | Triglycerides >690 mg/dL | | | or Moderate to Gross Hemolysis | | + + + + + + + + | Performing | Address | City/State/Zipcode | Phone Number | | Organization | | | | + + + + + | [facility] | [address] | [place] [address] | | | NAY KANG | [address] | | | + + + + + OPERATION RECORD (03/15/2013 1:17 PM PDT) + + | Transcriptions | + + | Devin Gonzalez MD - 03/13/2013 2:30 PM PDT Date: 03/13/2013 | | | | Attending Surgeon: Steffen Rodríguez M.D. | | | | Warehouse Specialist(s): Devin Gonzalez MD | | Ricky [...] He was told to follow up in [facility] clinic for further care. | [...] | | The patient was taken to [facility] OR number 6 and placed in [...] | | PD / HS | | [id number] / [id number] / [id number] / | | | | | + [...] + | [facility] | [address] | [place], [place] | | | JOI POINT OF CARE | [address] | [address] | | | TESTS | | | [...] | + + + + + | [facility] | [address] [facility] | [place] [address] | | | SERVICES, CORE | [address] [...] [facility] | [address] | [place] [address] | | | SERVICES, CORE | [address] [...] | | | LABORATORY | | | [place] | | | SERVICES, | | | [...] [facility] | [address] | [place] [address] | | | SERVICES, CORE | [address] [...] | + + + + + | [facility] | [address] | [place] [address] | | | SERVICES, CORE | MARY [...] (H) | 60 - 99 mg/dL | [facility] - | | | GLUCOSE, | [...] [facility] | [address] | [place], [place] | | | JOI POINT OF CARE | [address] | [address] | | | TESTS | | | [...] [facility] | [address] | [place], [place] | | | JOI POINT OF CARE | [address] | [address] | | | TESTS | | | [...] - [facility] | [address] | [place], [place] | | | JOI POINT OF CARE | [address] | [address] | | | TESTS | | | [...] | + + + + + | [facility] | [address] | [place] [address] | | | SERVICES, CORE | PARK [...] [facility] | [address] | [place] [address] | | | SERVICES, CORE | PARK [...] | | | LABORATORY | | | [place] | | | SERVICES, | | | [...] | + + + + + | [facility] | [address] | [place] [address] | | | SERVICES, CORE | PARK [...] | + + + + + | [facility] | [address] | [place] [address] | | | SERVICES, CORE | [address]ARK [...] [facility] | [address] | [place], [place] | | | BABAR TAMEZ OF CARE | [address] | [address] | | | TESTS | | | [...] [facility] | [address] | [place], [place] | | | BABAR TAMEZ OF CARE | [address] | [address] | | | TESTS | | | [...] [facility] | [address] | [place], [place] | | | JOI POINT OF CARE | [address] | [address] | | | TESTS | | | [...] [facility] | [address] | [place], [place] | | | BABAR TAMEZ OF CARE | [address] | [address] | | | TESTS | | | [...] | + + + + + | [facility] | [address] | [place] [address] | | | PEARL, NAY | MARY [...] | 1.5 | 0.5 - 1.6 | [facility] - | | | | | [...] [facility] | [address] | [place], [place] | | | JOI POINT OF CARE | [address] | [address] | | | TESTS | | | [...] | | | | | mmol/L | [facility] | | [...] [facility] | [address] | [place], [place] | | | BABAR TAMEZ OF CARE | [facility] | [address] | | | TESTS | | | [...] + + | [facility] | [address] | [place], [place] | | | BABAR TAMEZ OF CARE | [facility] | [address] | | | TESTS | | | | + + + + + GLUCOSE, POC (03/13/2013 11:54 AM PDT) + +---------+ + + + | Component | Value | Ref Range | Performed | Pathologist | | | | | At | Signature | + +---------+ + + + | GLUCOSE, | 227 (H) | 60 - 99 mg/dL | [facility] - | | | POC | [...] [facility] | [address] | [place], [place] | | | BABAR TAMEZ OF [place] | [facility] | [address] | | | TESTS | | | [...] [facility] | [address] | [place], [place] | | | BABAR TAMEZ OF CARE | [address] | [address] | | | TESTS | | | | + + + + + MATT VIJAYA CALORETTA (03/13/2013 11:54 AM PDT) + + + [...] [facility] | [address] | [place], [place] | | | DEBORAH TAMEZ CARE | [facility] | [address] | | | TESTS | | | [...] + + + | [facility] | [address] | [place], [place] | | | JOI POINT OF CARE | [address] | [address] | | | TESTS | | | [...] [facility] | [address] | [place], [place] | | | BABAR TAMEZ OF CARE | [address] | [address] | | | TESTS | | | [...] (H) | 60 - 99 mg/dL | [facility] - | | | GLUCOSE, | [...] [facility] | [address] | [place], [place] | | | BABAR TAMEZ OF [place] | [address] | [address] | | | TESTS | | | [...] | + + + + + | [email or web address] | [address] | [place] [address] | | | SERVICES, CORE | MARY [...] [facility] | [address] | [place], [place] | | | JOI POINT OF CARE | [address] | [address] | | | TESTS | | | [...] | | | PATHOLOGY | Gallbladder and contents | | DEPARTMENT | | | | Final Pathologic | | OF | | | | Diagnosis:Gallbladder | | PATHOLOGY | | | | and contents, | | | | | | cholecystectomy: - | | | | | | Chronic cholecystitis | | | | | | - Cholelithiasis | | | | | | Case seen by:Grace | | | | | | Sho Staples | | | | | | M.Heriberto/Surgical Pathology | | | | | | Tarun Garcia, | | | | | | MHilario/PathologistT: | | | | | | 3:minda Clinical | | | | | | History:The patient is a | | | | | | 62-year-old male. Per | | | | | [...] | | | | | | 7.2 x 3.5 x | | | | | | 1.2 cmCystic duct: | | | | | | Absent. | | | | | | Specimen is disrupted | | | | | | and previously opened | | | | | | atneck.Cystic node: | | | | | | AbsentWall | | | | | | thickness: 0.1 | | | | | | cmSerosa: | | | | | | Ivanhoe-duncan with | | | | | | erythema with a single | | | | | | transmural defect, 0.5cm | | | | | | at the neckBile | | | | | | contents: | | | | | | Red-brown bileStones: | | | | | | Multiple | | | | | | black ovoid calculi | | | | | | ranging from 0.5 up to | | | | | | 0.7 cmMucosa: | | | | | | Red and velvety | | | | | | The cystic duct margin | | | | | | is entirely submitted | | | | | | and health and safety representative | | | | | | sectionsfrom the fundus | | | | | | and body are submitted. | | | | | | Cassette | | | | | | Index:A1SA/minda My | | | | | | [...] Diagnostician: | | | | | | Jay Garcia | | | | | | MHilarioPathologistElectroni | | | | | | donald Signed 03/15/2013 | | | | | | 1:27PM | | | | + + + + + + + + | Specimen | + + | | + + + + + + + | Performing | Address | City/State/Zipcode | Phone Number | | Organization | | | | + + + + + | [facility] | [address] | [place] [address] | | | PATHOLOGY | [address] [...] [facility] | [address] | [place], [place] | | | BABAR TAMEZ OF [place] | [address] | [address] | | | TESTS | | | [...] | [facility] | [address] | [place], [place] | | | JOI POINT OF CARE | [address] | [address] | | | TESTS | | | [...] (H) | 60 - 99 mg/dL | [facility] - | | | GLUCOSE, | [...] + + + | [facility] | [address] | [place], [place] | | | BAB[facility]AMEZ OF [facility] | [address] | [address] | | | TESTS | | | [...] | + + + + + | [facility] | [address] | [place] [address] | | | SERVICES, CORE | PARK [...] [facility] | [address] | [place], [place] | | | BABAR TAMEZ OF TIMUR | [address] | [address] | | | TESTS | | | [...] - [facility] | [address] | [place], [place] | | | BABAR TAMEZ OF CARE | [facility] | [address] | | | TESTS | | | [...] (H) | 60 - 99 mg/dL | [facility] - | | | GLUCOSE, | [...] [facility] | [address] | [place], [place] | | | [facility] | [facility] | [address] | | | TESTS | | | [...] [facility] | [address] | [place], [place] | | | BABAR TAMEZ OF CARE | [address] | [address] | | | TESTS | | | [...] | + + + + + | [facility] | [address] | [place] [address] | | | SERVICES, CORE | PARK [...] [facility] | [address] | [place], [place] | | | [facility]I [facility] | [address] | [address] | | | TESTS | | | [...] | | | | | | thoracic kyphosis. | | | | | | The pleural margins | | | | | | and lungs appear clear | | | | | | thecardiac silhouette is | | | | | | within normal limits. | | | | | | There is mild | | | | | | tortuosity of | | | | | [...] | | + +---------+ + + | [facility] | | | | | RADIOLOGY | [...] + | [facility] | [address] | [place] [address] | | | SERVICES, | [address] [...] | + + + + + | [facility] | [address] | [place] [address] | | | SERVICES, | [address] [...] + + | [facility] | [address] | [place] [address] | | | SERVICES, CORE | PARK [...] [facility] | [address] | [place] [address] | | | SERVICES, NAY | MARY [...] | + + + + + | [facility] | [address] | [place] [address] | | | SERVICES, NAY | MARY [...] | + + + | APTT Therapeutic Range: (75 - | [facility] | | 120) sec Heparin levels of 0.35 - 0.7 U/mL | LABORATORY | | | SERVICES, CORE | + + + + + + + + | Performing | Address | City/State/Zipcode | Phone Number | | Organization | | | | + + + + + | [facility] | [address] | [place] [address] | | | SERVICES, CORE | PARK [...] [facility] | [address] | [place] [address] | | | SERVICES, CORE | PARK [...] | + + + + + | [facility] | [address] | [place] [address] | | | SERVICES, CORE | PARK [...] (H) | 0.90 - 1.20 INR | [facility] | | | | | | LABORATORY [...] [facility] | [address] | [place] [address] | | | SERVICES, CORE | PARK [...] | | | LABORATORY | | | [place] | | | SERVICES, | | | [...] the MDRD equation recommended by the | [facility] | | National Kidney Disease Education [...] | + + + + + | [facility] | [address] | [place] [address] | | | [facility] | [address] | | | + [...] - ELLIE | [address] | [place], [place] | | | JOI POINT OF CARE | [address] | [address] | | | TESTS | | | [...] view image for the detailed interpretation from [facility] results. | CARDIOLOGY | + + + + + | Procedure Note | + + | Interface, Cardiology Results - 03/10/2013 7:22 PM PDT Please click on view image | | for the detailed interpretation from [facility] results. | + + + + + + + | Performing | Address | City/State/Zipcode | Phone Number | | Organization | | | | + + + + + | [facility] | [address] | [place], [place] | | | CARDIOLOGY | [address] | [address] | | + + + + + [...] PDT | | | | | Starting Wed03/10/13 at 1703, | | | | | [...] | | EVERY 6 HOURS, First dose (after | | AM PDT | | | | | last modification) on Wed03/13/13 | | | | | | | at 1530, Until Discontinued | | | | | [...] | | | | | | Starting [facility] 03/16/13 at 0859, | | | | [...] | | | | | 0302, Until Wed03/19/13 at 1945, | | | | | [...] 13 7:34 | | | | | LITURGICAL MUSIC DIRECTOR infusion intravenous, | | AM PDT | | | | | CONTINUOUS, Starting Wed03/13/13 | | | | | | | at 1330, Until Wed03/14/13 at | | | | | | [...] 13 1:46 | | | | | LITURGICAL MUSIC DIRECTOR infusion intravenous, | | PM PDT | | | | | CONTINUOUS, Starting [facility] 03/14/13 | | | | | | | [...] | | | + +---+ | HYDROmorphone LITURGICAL MUSIC DIRECTOR infusion 1 | | | dose, Starting Wed03/13/13 at | | | 1338, Until Wed03/13/13 [...] | | | | | dose on Wed03/16/13 at 2200, | | | | | [...] | | MEALS AND BEDTIME, First dose | | PM PDT | | | | | (after last modification) on Nusrat | | | | | | | 03/16/13 at 1200, Until | | | [...] 13 9:11 | | | | | 7/20/13 at 0700, Until | | AM PDT [...] | | | | First dose on Nusrat 03/16/13 at | | AM PDT | [...] AM PDT | | | | | Wed03/10/13 at 2100, Until | | | | [...] | | | | | NEEDED, Starting 03/10/13 at | | AM PDT | | [...] | | | | DAILY, First dose (after last | | AM PDT | | | | | modification) on [facility] 03/16/13 at | | | | | | | 1145, Until Discontinued | | | | [...] | 1 packet | | | | (aka NEUTRA-PHOS, PHOS-NAK) | | 13 8:32 | | | [...] senna-docusate (aka SENOKOT S) | Given | 03/19/20 | 1 tablet | | | | 8.6-50 mg 1 Tab 1 tablet, oral, | | 13 9:11 | | | | | TWICE DAILY, First dose on Nusrat | | AM PDT | | [...] +---+---+ + +-------+ +-------+---+---+ | simethicone chew (aka MYLICON) | Given | 03/17/20 | 80 mg [...] | | EVENING, 1 dose, First dose | | PM PDT | | | | | (after last reorder) on Wed | | | | | | | 03/16/13 at 2100 | | | | [...] PDT | | | | | on 03/18/13 at 2100, Until | | | | [...] | | | | | modification) on 03/14/13 at | | | | | [...] | | | | | reorder) on Wed03/17/13 at 2100, | | | | | | | Until Discontinued | | | | | | + +-------+ +--------+---+---+ +---+---+ | | | +---+---+ documented in this encounter
--- OUTSIDE RECORDS SUMMARY | ~2019-08-03 | XMS | Encounter Summary ---
Demographics + + + | Address | [address] | | | [place] [address] | + + + | Home Phone [...] Team Providers + +------+ + | Care Box Sealing Machine Operator Name | Role | Phone [...] | | | | | | [place], | | | | | | [place] [address] | | | | | | [phone] | | | +--------+ + + + [...] | | | | | | the priorstudy. 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 | | | | | | Enthesopathy is seen | | | | | | ofthe ischial | | | | | | tuberosities. No | | | | | | fracture is outlined. | | | | | | There is no softtissue | | | | | | abnormality. | | | | | | [...] | | + +---------+ + + | [facility] DEPARTMENT OF | | | | | RADIOLOGY | | | | + +---------+ + + documented in this encounter Visit Diagnoses + + | Diagnosis | + + | Osteoarthrosis, hip Localized osteoarthrosis not specified whether primary or | | secondary, pelvic region and thigh | + + documented in this encounter"
--- OUTSIDE RECORDS SUMMARY | ~2019-08-03 | XMS | Encounter Summary ---
Demographics + + + | Address | [address] | | | [place] [address] | + + + | Home Phone [...] Team Providers + +------+ + | Care Customer Support Representative Name | Role | Phone | + +------+ + | Gracie Mariano MD | PCP | | + +------+ + Encounter Details +--------+ + + + + | Date | Type | Department | Care Team | Description | +--------+ + + + + | 06/22/ | Telephone | Digestive Health | Harinder Felton, | | | 2012 | | [place] at [facility] [address] | [address] | | | | | [place] | [place] [address] | | | | | Mailcode: Center | [phone] | | | | | for Health and | | | | | | [facility], [facility] 2 | | | | | | [place], [place] | | | | | | [address] | | | | | | [phone] | | | +--------+ + + + [...]
--- OUTSIDE RECORDS SUMMARY | ~2019-08-03 | XMS | Encounter Summary ---
Demographics + + + | Address | [address] | | | [place] [address] | + + + | Home Phone [...] Author | [facility] | + + + | Organization | [facility] | + + + | Address | [...] Team Providers + +------+ + | Care Siderographer Name | Role | Phone | + [...] TOTAL | | 2011 | | [facility] | [address] [facility] [address] | HIP ARTHROPLASTY | | | | Rd [facility] | [facility] | | | | | Hospital Admitting | [place], [place] | | | | | Desk Located on the | [address] | | | | | 9th floor | [phone] | | | | | [place], [place] | | | | | | [address] | | | +--------+---------+ + + + [...] they suspect your wound is infected. Call [facility] Orthopedics first at [phone]. Diet Regular Regular diet- There are no [...] 2 weeks (or as previously scheduled). Call [phone] to confirm or schedule this appointment. PCP: As needed for any medical concerns not related to your surgery. Future Appointments Date & Time Provider Department Dept Phone Center 05/10/2012 2:15 PM Antony Patterson MD [facility] Radiation Medicine [phone] Rad Onc 05/19/2012 8:00 AM Maldonado Ewing PA-C [facility] Orthopaedics & Rehabilitation [phone] Amy thornton Deep Vein Thrombosis (Leg Blood Clot) Prevention DVT prophylaxis: You are at increased risk of forming a blood clot following your joint replacement. - We have recommended that you take Coumadin following your surgery to decrease this risk. - See discharge prescriptions for administration instructions. - Call Orthopedic Clinic at [phone] if any persistent, localized swelling that does [...] and ask for the orthopaedic surgery resident brickmason helper. Additional Post-Op Instructions / What to Expect [...] feel that you will need more, call [phone] during business hours in order to get [...] Cox NP - 05/12/2012 1:26 PM PDTOrtho MILLING MACHINIST Progress Note 05/12/2012 1:26 PM Author BLANCA [...] to SNF BLANCA COX NP [facility] [address] [place] [address] Gifty Gage Md - 05/12/2012 6:23 AM [...] Discharge likely postoperative day 3. Will ask spring encaser to assess for SNF placem ent. I performed a history and physical examination of the patient and discussed his management with the resident. I reviewed the resident s note and agree with the documented findings and plan of care. ROSA M SMART MD [facility] [address] [facility] [address] [facility] [place] [address] uff, Rosa M Paige MD - 0 [...] plan of care. ROSA M SMART MD [facility] [address] [facility] [address] uerlinda, Rosa M Paige MD - 0 [...] plan of care. ROSA M SMART MD [facility] [address] Joseph I[facility] [address] documented in this enc ounter Plan of [...] BARRY[place] | [address] | [place], [place] | | | BABAR TAMEZ OF CARE | [address] | [address] | | | TESTS | | | [...] ARGUETA | [address] | [place], [place] | | | BABAR TAMEZ OF TIMUR | [facility] | [address] | | | TESTS | | | [...] | + + + + + | [facility] DEPARTMENT | [address] | [place] [address] | | | PATHOLOGY | [address] [...] (H) | 60 - 99 mg/dL | [facility] - | | | GLUCOSE, [...] ARGUETA | [address] | [place], [place] | | | BABAR TAMEZ OF TIMUR | [address] | [address] | | | TESTS | | | [...] MARQUAM | [address] | [place], [place] | | | BABAR TAMEZ OF CARE | [address] | [address] | | | TESTS | | | [...] - ELLIE | [address] | [place], [place] | | | BABAR TAMEZ OF TIMUR | [address] | [address] | | | TESTS | | | [...] ARGUETA | [address] | [place], [place] | | | BABAR TAMEZ OF TIMUR | [address] | [address] | | | TESTS | | | [...] DEPARTMENT OF | [address] | [place] [address] | | | PATHOLOGY | [address] [...] + + + + + | [facility] | [address] | [place] [address] | | | PATHOLOGY | [address] [...] (H) | 60 - 99 mg/dL | [facility] - | | | GLUCOSE, [...] ARGUETA | [address] | [place], [place] | | | JOI POINT OF CARE | [address] | [address] | | | TESTS | | | [...] ARGUETA | [address] | [place], [place] | | | BABAR TAMEZ OF TIMUR | [facility] | [address] | | | TESTS | | | [...] + | LAURIEKEE Dominguez [place] | [address] [facility] [address] | [place], [place] | | | JOI [facility] | [address] | [address] | | | TESTS | | | | + + + + + OPERATION RECORD (05/10/2012 11:16 AM PDT) + + | Transcriptions | + + | Rosa M Smart MD - 05/10/2012 7:13 AM PDT [id number] | | [id number] DENISE MANTILLA | | [id number] Date: 05/09/2012 Attending Surgeon: Rosa M | | Melinda Smart M.D. Sanitation Worker Cleaning Machinery(s): Maldonado Ewing PA-C Please note, no | [...] The [place]travel[place] the [place] setting due to the | | complexityof his situation. Overall surgical time was close to 3 times what | | wouldotherwise be expected for this type of procedure. There would also behigher | | anticipated rates of associated morbidity. For all of thesereasons, the complexity | | modifier is warranted. Rosa M Smart M.D.[facility] / [id number] / [id number] / [id number] /D: | | 05/09/2012T: 05/09/2012 | |ambulatory [...] 40. The patient | |traveled across the [facility] to the [place] setting due to the complexity | |of [...] M Smart M.D. | |TWH / | |[id number] / [id number] / [id number] / | | | | | | [...] ARGUETA | [address] | [place], [place] | | | BABAR TAMEZ OF CARE | [facility] | [address] | | | TESTS | | | [...] | + + + + + | [facility] DEPARTMENT OF | [address] | [place] [address] | | | PATHOLOGY | [address] [...] | + + + + + | [facility] DEPARTMENT OF | [address] | [place] [address] | | | PATHOLOGY | [address] [...] + + | [facility] DEPARTMENT OF | [address] | [place] [address] | | | PATHOLOGY | [address] [...] AR[place]ETA | [address] | [place], [place] | | | JOI [facility] | [address] | [address] | | | TESTS | | | [...] + + + | AUTUMN [place]ET[place] | [address] | [place], [place] | | | BABAR TAMEZ OF [facility] | [address] | [address] | | | TESTS | | | [...]
--- OUTSIDE RECORDS SUMMARY | ~2019-08-03 | XMS | Encounter Summary ---
Demographics + + + | Address | [address] | | | [place] [address] | + + + | Home Phone [...] + + + | Author | [facility] | | | and [place] | + + + | Organization | [facility] | | | and [...] Team Providers + +------+ + | Care Nursing Resident Name | Role | Phone | + +------+ + PCP | Unavailable | + +------+ + Encounter Details +--------+ + + + + | Date | Type | Department | Care Team | Description | +--------+ + + + + | 04/07/ | [facility] | [facility] | Otoniel Doe | | | 2004 | Encounter | MED CTR SLEEP | MD Rauq[address] | | | | | [place] [address] | [facility] | | | | | [place] | [place] [address] | | | | | [address] | [phone] | | | | | [phone] | | | +--------+ + + + [...] | | | | | | [place] [address] | | | | | | [phone] | | | | | | | | +--------+---------+ + + + | 11/26/ | Office | Cardiology | Sissy Noyola | | | 2020 | Visit | | MD Marisol [address] | | | | | | [place] | | | | | | [address] | | | | | | | | +--------+---------+ + + + documented as of this encounter Visit Diagnoses Not on filedocumented in this encounter"
--- OUTSIDE RECORDS SUMMARY | ~2019-08-03 | XMS | Encounter Summary ---
Demographics + + + | Address | [address] | | | [place] [address] | + + + | Home Phone [...] Team Providers + +------+ + | Care Biometrics Specialist Name | Role | Phone | [...] + + + + | 09/14/ | Manager Business | Digestive Health | Harinder Felton, | | | 2013 | | Center at [facility] [address] | [address] | | | | | [place] | [place] [address] | | | | | Mailcode: [place] | [phone] | | | | | for Health and | | | | | | [facility], [facility] 2 | | | | | | [place], [place] | | | | | | [address] | | | | | | [phone] | | | +--------+ + + + [...]
--- OUTSIDE RECORDS SUMMARY | ~2019-08-03 | XMS | Encounter Summary ---
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
--- OUTSIDE RECORDS SUMMARY | ~2019-08-03 | XMS | Encounter Summary ---
Demographics + + + | Address | [address] | | | [place] [address] | + + + | Home Phone | | + + + | Preferred Language | Unknown | + + + | Marital Status | Single | + + + | Church Affiliation | 1041 | + + + | Race | Unknown | + + + | Ethnic Group | Unknown | + + + Author + + + | Author | [facility] | | | and [place] | + + + | Organization | [facility] | | | and [...] Team Providers + +------+ + | Care Shellfish Bed Worker Name | Role | Phone | + +------+ + PCP | Unavailable | + +------+ + Encounter Details +--------+ + + + + | Date | Type | Department | Care Team | Description | +--------+ + + + + | 02/01/ | Hospital | [facility] | Conversion | Closed nondisplaced | | 2017 | Encounter | [facility] | Transaction, | fracture of seventh | | | | [address] | Provider Unknown | cervical vertebra, | | | | [address] [place], [place] | [phone] | unspecified fracture | | | | [address] | | morphology, initial | | | | [phone] | Oscar Veronica, | encounter (HCC) | | | | | BRI [address] | | | | | | [address] | | | | | | [place] [address] | | | | | | [phone] | | | | | | | [...] mg by mouth | | 0 | 1820 | | | (ZYLOPRIM) 100 mg | daily. | | | 17 | | | tablet | | | | | | + + + +---------+ + + | Cholecalciferol | Take 1 tablet by | | 0 | / | | | (VITAMIN D-3) 2000 | mouth. | | | 17 | | | units CAPS | | | | | | + + + +---------+ + + | folic acid 1 mg | Take 1 mg by mouth | | 0 | 20 | | | tablet | daily. Indications: | | | 17 | | | | 0.5 tab by mouth q | | | | | | | day | | | | | + + + +---------+ + + | | Take 25 mg by mouth | | 0 | 05/18/20 | | | hydroCHLOROthiazide | daily. Indications: [...] | 09/14/ | Office | Neurology | YasmanySarahi, | | | 2019 | Visit | | [address] | | | | | | [address] | | | | | | [place] [address] | | | | | | [phone] | | | | | | | | +--------+---------+ + + + | 11/26/ | Office | Cardiology | Sissy Noyola | | | 2019 | Visit | | MD Marisol [address] | | | | | | [place] | | | | | | [address] | | | | | | | | +--------+---------+ + + + documented as of this encounter Procedures + +--------+ + + + | Procedure Name | Priori | Date/Time | Associated Diagnosis | Comments | | | ty | | | | + +--------+ + + + | XR CERVICAL SPINE 2 | Routin | 02/01/2017 | | Results for this | | OR 3 VIEWS | e | 8:39 AM | | procedure are in the | | | | PDT | | results section. | + +--------+ + + + documented in this encounter Results XR Cervical Spine 2 or 3 Views (02/01/2017 8:39 AM PDT) + + | Specimen | + + | | + + + + + | Impressions | Performed At | + + + | 1. Overall unchanged alignment of the cervical spine with | | | reidentification of posterior stabilization hardware and defect | | | involving C6-C7 articulation consistent with known fracture. | | | | | + + + + + + | Narrative | Performed At | + + + | [facility] CERVICAL SPINE LIMITED 2-3 VIEW 1950 | | | 02/01/2017 8:39 AM INDICATION: Closed nondisplaced fracture of | | | seventh cervical vertebra, unspecified fracture morphology, initial | | | encounter. COMPARISON: [facility] cervical spine 01/16/2017. TECHNIQUE: | | | Cervical spine series, 3 views FINDINGS: Extensive posterior | | | stabilization hardware noted placed through the cervical and the upper | | | thoracic spine. The hardware appears grossly intact. Normal alignment | | | of the cervical spine seen. There is diffuse ankylosis of the | | | cervical and thoracic spine. There is defect noted involving the | | | C6-C7 articulation, consistent with known fracture. This appears to | | | demonstrate some sclerosis suggesting partial healing and is unchanged | | | in alignment. | | + + + + + | Procedure Note | + + | Vamsi Guillaume Conversion - 04/05/2019 11:44 PM PDT [facility] CERVICAL SPINE LIMITED | | 2-3 8:39 AM INDICATION: Closed nondisplaced fracture of seventh | | cervical vertebra, unspecified fracture morphology, initial encounter. COMPARISON: [facility] | | cervical spine 01/16/2017. TECHNIQUE: Cervical spine series, 3 views FINDINGS: Extensive | | posterior stabilization hardware noted placed through the cervical and the upper | | thoracic spine. The hardware appears grossly intact. Normal alignment of the cervical | | spine seen. There is diffuse ankylosis of the cervical and thoracic spine. There is | | defect noted involving the C6-C7 articulation, consistent with known fracture. This | | appears to demonstrate some sclerosis suggesting partial healing and is unchanged in | | alignment. IMPRESSION: 1. Overall unchanged alignment of the cervical spine with | | reidentification of posterior stabilization hardware and defect involving C6-C7 | | articulation consistent with known fracture. | | spine. There is defect noted involving the C6-C7 articulation, consistent with known fract ure. This appears to demonstrate some sclerosis suggesting partial healing and is unchanged in alignment. | | | |IMPRESSION: | |1. Overall unchanged alignment of the cervical spine with reidentification of posterior st abilization hardware and defect involving C6-C7 articulation consistent with known fracture. | | | | | + + documented in this encounter Visit Diagnoses + + | Diagnosis | + + | Closed nondisplaced fracture of seventh cervical vertebra, unspecified fracture | | morphology, initial encounter (HCC) | + + documented in this encounter"
--- OUTSIDE RECORDS SUMMARY | ~2019-08-03 | XMS | Encounter Summary ---
Demographics + + + | Address | [address] | | | [place] [address] | + + + | Home Phone | | + + + | Preferred Language | Unknown | + + + | Marital Status | Single | + + + | [employer] Affiliation | BAP | + + + [...] Providers + +------+ + | Care Product Demonstrator Name | Role | Phone | + [...] | Rheumatology | Diagnoses | Purnima | [facility] | | | | | Ankylosing | MD Harinder | [address] | | | | | spondylitis | [address] | [address] | | | | | ([facility]) | [address] | Loop | | | | | Procedures | [facility], | Mailcode: | | | | | CONSULT TO | [place] [address] | OP09 | | | | | RHEUMATOLOGY | Phone: | Physician's | | | | | | [phone] | [place], [facility] | | | | | | Fax: | Floor | | | | | | [phone] | [place], [place] | | | | | | | [address] | | | | | | | Phone: | | | | | | | [phone] | | | | | | | Fax: | | | | | | | [phone] | +--------+--------+ + + + + Encounter Details +--------+ + + + + | Date | Type | Department | Care Team | Description | +--------+ + + + + | 02/16/ | Clinical Laboratory Director | Digestive Health | Harinder Felton, | Ankylosing | | 2013 | | Center at [facility] [address] | MD [address] | spondylitis (HCC) | | | | [address] | [place] [address] | (Primary Dx) | | | | Mailcode: Center | [phone] | | | | | for Health and | | | | | | Healing, [address] | | | | | | [place], [place] | | | | | | [address] | | | | | | [phone] | | | +--------+ + + + [...]
--- OUTSIDE RECORDS SUMMARY | ~2019-08-03 | XMS | Encounter Summary ---
Demographics + + + | Address | [address] | | | [place] [address] | + + + | Home Phone [...] Team Providers + +------+ + | Care Electronics Research Engineer Name | Role | Phone | + +------+ + | Gracie Mariano MD | PCP | | + +------+ + Encounter Details +--------+ + + + + | Date | Type | Department | Care Team | Description | +--------+ + + + + | 11/10/ | Hospital | Radiology/Imaging | | Canceled (Scheduling | | 2015 | Encounter | Lab at [facility] [address] | | error) | | | | [place] Mailcode: | | | | | | [facility] | | | | | | Health and Healing, | | | | | | [place] [address] [facility] | | | | | | [place], [place] | | | | | | [address] | | | | | | [phone] | | | +--------+ + + + [...]
--- OUTSIDE RECORDS SUMMARY | ~2019-08-03 | XMS | Encounter Summary ---
Demographics + + + | Address | [address] | | | [place] [address] | + + + | Home Phone [...] Team Providers + +------+ + | Care Butcher All Round Name | Role | Phone | + [...] | Orthopedics | Diagnoses | Royal | Smart, | | | | | | Quang S, | Jorge Paige MD | | | | | Osteoarthros | MD Eastern | [address] | | | | | is, hip Hip | [facility] | [address] | | | | | pain, | & Fractur | Rd [place], | | | | | bilateral | [address] | [place] | | | | | Ankylosing | [address] | [address] | | | | | spondylitis | [place], | Phone: | | | | | ([facility]) | [place] [address] | [phone] | | | | | Procedures | Phone: | Fax: | | | | | REQUEST TO | [phone] | [phone] | | | | | SURGERY | Fax: | | | | | | INTERNAL COMBUSTION ENGINE ASSEMBLER | [phone] | | | | | | IN TOTAL HIP | | | | | [...] | | | | e joint | [facility] | [address] | | | | | disease) of | & Fractur | Rd [place], | | | | | hip DJD in | [address] | [place] | | | | | hips | [address] | [address] | | | | | | [place], | Phone: | | | | | | [place] [address] | [phone] | | | | | | Phone: | Fax: | | | | | | [phone] | [phone] | | | | | | Fax: | | | | | | | [phone] | | +--------+--------+ + + + + Encounter Details +--------+---------+ + + + | Date | Type | Department | Care Team | Description | +--------+---------+ + + + | 04/28/ | Office | Orthopaedics at | Jorge Smart MD | Osteoarthrosis, hip; | | 2011 | Visit | [facility] [address] | [address] | Hip pain, | | | | [address] | [address] | bilateral; | | | | Mailcode: [id number] | [facility] [place] | Ankylosing | | | | [facility] | [address] | spondylitis (HCC) | | | | [place], [place] | [phone] | | | | | [address] | | | | | | [phone] | | | +--------+---------+ + + + [...] a few weeks later. JORGE SMART MD [facility] Mailcode: [id number] Physician's [facility] [phone] nder Wallis MD - 04/28/2012 3:53 PM PDTOrthopaedics Note [...] | + + | Sameera Patel - 05/03/2012 11:48 AM PDT | + [...]
--- OUTSIDE RECORDS SUMMARY | ~2019-08-03 | XMS | Encounter Summary ---
Demographics + + + | Address | [address] | | | [place] [address] | + + + | Home Phone | | + + + | Preferred Language | Unknown | + + + | Marital Status | Single | + + + | Quaker Affiliation | 1041 | + + + | Race | Unknown | + + + | Ethnic Group | Unknown | + + + Author + + + | Author | [facility] | | | and [place] | + + + | Organization | [facility] | | | and [place] [...] Team Providers + +------+ + | Care Telecom Specialist Name | Role | Phone | [...] Description | +--------+--------+ + + + | 05/16/ | Refill | [facility] | Sissy Noyola | Medication Refill | | 2019 | | FABIO [address] | MD Marisol [address] | | | | | [address] | [address] [facility] | | | | | [place], [place] | [address] | | | | | [address] | | | | | | [phone] | | | +--------+--------+ + + + [...] | | | | | [address] [address] | | | | | | [phone] | | | | | | | | +--------+---------+ + + + | 11/26/ | Office | Cardiology | Sissy Noyola | | | 2019 | Visit | | MD [address] | | | | | | [place] | | | | | | [address] | | | | | | | | +--------+---------+ + + + documented as of this encounter Visit Diagnoses Not on filedocumented in this encounter"
--- OUTSIDE RECORDS SUMMARY | ~2019-08-03 | XMS | Encounter Summary ---
Demographics + + + | Address | [address] | | | [place] [address] | + + + | Home Phone [...] Team Providers + +------+ + | Care Ad Writer Name | Role | Phone | + +------+ + | Gracie Mariano MD | PCP | | + +------+ + Encounter Details +--------+ + + + + | Date | Type | Department | Care Team | Description | +--------+ + + + + | 11/21/ | Abstract | Dig[facility]ive [facility] | Adriano Chavez, | | | 2013 | | [place] [facility] [address] | | | | | | [address] | | | | | | Mailcode: [place] | | | | | | [facility] and | | | | | | [facility] [address] | | | | | | [place], [place] | | | | | | [address] | | | | | | [phone] | | | +--------+ + + + [...]
--- OUTSIDE RECORDS SUMMARY | ~2019-08-03 | XMS | Encounter Summary ---
Demographics + + + | Address | [address] | | | [place] [address] | [...] Author + + + | Author | [facility] | | | and [place] | + + + | Organization | [facility] | | | and [place] [...] Providers + +------+ + | Care Health Safety Specialist Name | Role | Phone | + +------+ + | Scooby Mcclure DO | PCP | | + +------+ + Reason for Referral Diagnostic/Screening (Routine) + +--------+ + + + + | Status | Reason | Specialty | Diagnoses / | Referred By | Referred To | | | | | Procedures | Contact | Contact | + +--------+ + + + + | Authorized | | | Diagnoses | [facility] | [facility] | | | | | Essential | Sissy O, | HOSPITAL | | | | | hypertension | MD [address] | | | | | Aortic | [address] | [address] | | | | | valve | [place], | [place], [place] | | | | | regurgitatio | [place] [address] | [address] | | | | | n, | Phone: | Phone: | | | | | nonrheumatic | [phone] | [phone] | | | | | Syncope | Fax: | Fax: | | | | | and collapse | [phone] | [phone] | | | | | Procedures | | | | | | | ECHO | | | | | | | Complete | | | + +--------+ + + + + Reason for Visit + + + | Reason | Comments | + + + | Follow-up | 3 months | + + + Follow Up (Routine) +--------+--------+ + + + + | Status | Reason | Specialty | Diagnoses / | Referred By | Referred To | | | | | Procedures | Contact | Contact | +--------+--------+ + + + + | Closed | | Cardiology | Diagnoses | Quaempts, | [place], | | | | | 3 month f/u | Scooby Rossi DO | Sissy [place], | | | | | Procedures | [address] | [address] | | | | | OFFICE | [address] | [address] | | | | | VISIT | WAY | [place] | | | | | REGULAR | [place], | [address] Phone: | | | | | | [place] [address] | [phone] | | | | | | Phone: | Fax: | | | | | | [phone] | [phone] | | | | | | Fax: | | | | | | | [phone] | | +--------+--------+ + + + + Encounter Details +--------+---------+ + + + | Date | Type | Department | Care Team | Description | +--------+---------+ + + + | 05/25/ | Office | [facility] | Sissy Noyola | Coronary artery | | 2019 | Visit | CARDIOLOGY [place] | MD Marisol [address] | disease involving | | | | [address] | [place] | [place] coronary | | | | [place] | [address] | artery of [place] | | | | [address] | | heart without angina | | | | [phone] | | pectoris (Primary | | | | | | Dx); Essential | | | | | | hypertension; Aortic | | | | | | valve | | | | | | regurgitation, | | | | | | nonrheumatic; | | | | | | Syncope and collapse | +--------+---------+ + + + Social History [...] Comments | + + +---------+ + | Never | | | | + + +---------+ + + + + + | Alcohol Habits | Answer | Date Recorded | + + + + | How often do you have a drink containing | Never | 05/25/2019 | | alcohol? | | | + + + + | How many drinks containing alcohol do you | Not asked | | | have on a typical day when you are | | | | drinking? | | | + + + + | How often do you have six or more drinks on | Not asked | | | one occasion? | | | + + + + + + + | Sex Assigned [...] + + + | Blood Pressure | 130/62 | 05/25/2019 2:04 PM | | | | | PDT | | + + + + + | Pulse | 70 | 05/25/2019 2:04 PM | | | | | PDT | | + + + + + | Temperature | - | - | | + + + + + | Respiratory Rate | 18 | 05/25/2019 2:04 PM | | | | | PDT | | + + + + + | Oxygen Saturation | 97% | 05/25/2019 2:04 PM | | | | | PDT | | + + + + + | Inhaled Oxygen | - | - | | | Concentration | | | | + + + + + | Weight | 108.4 kg (239 lb) | 05/25/2019 2:04 PM | | | | | PDT | | + + + + + | Height | - | - | | + + + + + | Body Mass Index | 34.79 | 03/01/2019 8:38 PM | | | | | PDT | | + + + + + documented in this encounter Progress Notes Sissy Noyola MD - 05/25/2019 1:45 PM PDT [facility] CARDIOLOGY OUTPATIENT VISIT PATIENT NAME: Jorge L Cisneros : 1950: AGE: 68 y.o. (home) Date of visit: 05/25/2019 PRIMARY CARE: Scooby Mcclure DO CHIEF COMPLAINT Chief Complaint Patient presents with Follow-up 3 months Plan ASSESSMENT & PLAN 1. Moderate two-vessel coronary artery disease, currently stable without angina 2. History of syncope 3. Hypertension currently controlled 4. Hyperlipidemia 5. Type 2 diabetes mellitus, insulin-dependent 6. History of DVT and antiphospholipid antibody on chronic anticoagulation with Xarelto 7. History of transient ischemic attack 8. Aortic sclerosis with aortic regurgitation Patient is currently stable. No anginal symptoms or heart failure symptoms. Event monitor reviewed. No significant arrhythmias. His previous syncopal episode is likely vasovagal. He has not been taking Xarelto. I advised patient to take Xarelto regularly given his hist ory of recurrent DVT and antiphospholipid antibody Continue medical management for coronary artery disease with aspirin, metoprolol, and atorv astatin He had not had the echocardiogram done. We will order an echocardiogram to assess left soheila tricular systolic function and assess of aortic valve. I will see him back in 6 months or sooner if needed. Orders Placed This Encounter Procedures ECHO Complete HISTORY OF PRESENT ILLNESS Jorge L Cisneros is 68 y.o. male with history of lower extremity DVT, antiphospholipid anti body, on anticoagulation with Xarelto, history of mild dementia, hypertension, hyperlipidemi a, type 2 diabetes mellitus, TIA who is here for follow-up on coronary artery disease and ep isode of syncope. He did not have recurrence of syncope. His coronary angiogram showed mod erate two-vessel coronary artery disease. He had not done an echocardiogram. He is activit y is generally limited and he walks using 2 canes. He had issues with heart arthritis. Den ies chest pain, shortness of breath, orthopnea, paroxysmal nocturnal dyspnea, palpitation, l ightheadedness, presyncope, or syncope. RELEVANT MEDICAL HISTORY Past Medical History: Diagnosis Date Actinic keratosis Ankylosing spondylitis ([facility]) Antiphospholipid syndrome (HCC) Arthritis Autoimmune disorder ([facility]) Chronic pain 03/16/2013 Chronic serous otitis media Coronary artery disease of [place] artery with stable angina pectoris ([facility]) 02/20/2019 Deep vein thrombosis (DVT) ([facility]) Dermatitis Diabetes mellitus, type 2 ([facility]) Diverticular disease Eosinophilic colitis Gout Hyperlipidemia Hypertension Hypokalemia Inflamed seborrheic keratosis Iron deficiency anemia Joint pain Moderate dementia without behavioral disturbance ([facility]) 05/05/2018 Neuromuscular disorder ([facility]) diabetic neuropathy Obesity Other primary thrombophilia (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) Vitamin D deficiency Past Surgical History: Procedure Laterality Date ABDOMEN SURGERY CERVICAL FUSION 01/09/2017 Procedure: CERVICAL - FUSION - POSTERIOR; Surgeon: Mendez Wallis MD; Locati on: [facility] OR; Service: Neurosurgery; Laterality: N/A; C3-T2.br COLECTOMY d/t perforated diverticuli HIP ARTHROPLASTY total left and right hip OTHER SURGICAL HISTORY UNLISTED PROCEDURE ARTHROSCOPY OTHER SURGICAL HISTORY 01/12/2017 INCISION AND DRAINAGE POSTERIOR LUMBAR SPINE - Procedure: LUMBAR - DRAINAGE; Surgeon: Christiano Wallis MD; Location: [facility]; Service: Neurosurgery; Laterality: N/ A; SHOULDER SURGERY right Social History Socioeconomic History Marital status: Single Spouse name: Not on file Number of children: Not on file Years of education: Not on file Highest education level: Not on file Social Needs Financial resource strain: Not on file Food insecurity - worry: Not on file Food insecurity - inability: Not on file Transportation needs - medical: Not on file Transportation needs - non-medical: Not on file Occupational History Not on file Tobacco Use Smoking status: Never Smoker Smokeless tobacco: Never Used Substance and Sexual Activity Alcohol use: Never Frequency: Never Drug use: Yes Types: Marijuana Comment: Drug use: Yes Sexual activity: Not on file Other Topics Concern Not on file Social History Narrative Not on file History reviewed. No pertinent family history. REVIEW OF SYSTEMS All other systems are reviewed and negative, except as above in the HPI. Review of Systems Constitution: Negative for diaphoresis and malaise/fatigue. HENT: Negative for congestion, nosebleeds and sore throat. Eyes: Negative for blurred vision. Cardiovascular: Negative for chest pain, claudication, irregular heartbeat, leg swelling, n ear-syncope, orthopnea, palpitations, paroxysmal nocturnal dyspnea and syncope. Respiratory: Negative for cough, hemoptysis, shortness of breath and snoring. Endocrine: Negative for cold intolerance and heat intolerance. Hematologic/Lymphatic: Negative for bleeding problem. Does not bruise/bleed easily. Skin: Negative for color change and rash. Musculoskeletal: Positive for arthritis and joint pain. Negative for back pain and neck reggie n. Gastrointestinal: Negative for abdominal pain, constipation, diarrhea, nausea and vomiting. Genitourinary: Negative for hematuria. Neurological: Negative for dizziness, focal weakness, headaches and light-headedness. Psychiatric/Behavioral: Negative for depression. The patient is not nervous/anxious. Outpatient Medications Prior to Visit Medication Sig Dispense Refill acetaminophen (TYLENOL) 500 mg tablet Take 1 tablet by mouth every 8 (eight) hours as n eeded. (Patient not taking: Reported on 05/25/2019) allopurinol (ZYLOPRIM) 100 mg tablet Take 100 mg by mouth daily. (Patient not taking: R eported on 05/25/2019) aspirin 81 MG tablet Take 81 mg by mouth daily. atorvaSTATin (LIPITOR) 40 mg tablet Take 1 tablet by mouth nightly. 90 tablet 3 B COMPLEX-C PO Take by mouth. Cholecalciferol (VITAMIN D-3) 2000 units CAPS Take 1 tablet by mouth. clindamycin (CLEOCIN) 300 MG capsule Take 300 mg by mouth every 6 (six) hours. (Patient not taking: Reported on 05/25/2019) docusate sodium (COLACE) 100 mg capsule Take 1 capsule by mouth daily as needed. (Patie nt not taking: Reported on 05/25/2019) donepezil (ARICEPT) 5 mg tablet Take 1 tablet by mouth nightly. ONE TIME urgent refill to cover for Dr. Kathy. (Patient not taking: Reported on 05/25/2019) 40 tablet 0 folic acid 1 mg tablet Take 1 mg by mouth daily. Indications: 0.5 tab by mouth q day (P atient not taking: Reported on 05/25/2019) hydroCHLOROthiazide 25 mg tablet Take 25 mg by mouth daily. Indications: take 1 tab by mouth q morning for HBP HYDROmorphone (DILAUDID) 2 mg tablet Take 1 tablet by mouth daily as needed. insulin aspart (NOVOLOG FLEXPEN) 100 units/mL injection pen Inject into the skin 3 (th ree) times daily before meals. Indications: Inject 25 units under the skin before meals (2-3 x per day) insulin glargine (LANTUS SOLOSTAR) 100 units/mL injection (pen) Inject into the skin n ightly. Indications: Inject 65 units under the skin at bedtime for diabetes isosorbide mononitrate (IMDUR) 30 mg ER tablet Take 1 tablet by mouth daily. (Patient n ot taking: Reported on 05/25/2019) 30 tablet 11 levothyroxine (SYNTHROID) 50 mcg tablet Take 50 mcg by mouth every morning before break fast. Indications: Take 1 tab by mouth q day except take 1 and 1.5 tab twice weekly. MANUAL SELECTION NEEDED - medical marijuana once daily. 3 grams per day metoprolol tartrate (LOPRESSOR) 25 mg tablet Take 0.5 tablets by mouth 2 times daily. 9 0 tablet 1 morphine (MSIR) 15 mg tablet Take 15 mg by mouth every 4 (four) hours as needed for Reggie n. Indications: Take 1 tab by mouth q 12 hrs if needed for pain morphine (ROXANOL) 20 mg/mL concentrated liquid Take 60 mg by mouth every 2 (two) hours as needed for Pain. Indications: Take 1 tab by mouth q 12 hrs if needed for pain Multiple Vitamins-Minerals (MULTIVITAMIN WITH MINERALS) tablet Take 1 tablet by mouth d aily. Indications: Take 1 tab q day rivaroxaban (XARELTO) 20 mg tablet Take 1 tablet by mouth daily. (Patient not taking: R eported on 05/25/2019) No facility-administered medications prior to visit. PHYSICAL EXAM BP 130/62 | Pulse 70 | Resp 18 | Wt 108.4 kg (239 lb) | SpO2 97% | BMI 34.79 kg/m Physical Exam Constitutional: He is oriented to person, place, and time. No distress. HENT: Head: Normocephalic and atraumatic. Eyes: Conjunctivae are normal. No scleral icterus. Neck: No JVD present. Cardiovascular: Normal rate and regular rhythm. Exam reveals no gallop and no friction rub. Murmur (2/6 systolic RUSB) heard. Pulmonary/Chest: No stridor. No respiratory distress. He has no wheezes. He exhibits no ten derness. Abdominal: Soft. Bowel sounds are normal. There is no tenderness. There is no rebound. Musculoskeletal: He exhibits no edema, tenderness or deformity. Neurological: He is alert and oriented to person, place, and time. No cranial nerve deficit . Skin: Skin is warm and dry. No rash noted. He is not diaphoretic. No pallor. Psychiatric: He has a normal mood and affect. PERTINENT DATA LABORATORY RESULTS: Lab Results Component Value Date WBC 10.30 03/01/2019 HGB 13.5 03/01/2019 Lab Results Component Value Date INR 1.1 01/22/2017 Lab Results Component Value Date NA 138 03/01/2019 K 4.9 03/01/2019 CL 106 03/01/2019 CO2 24 03/01/2019 BUN 9 03/01/2019 MG 2.0 01/21/2017 AST 40 03/01/2019 ALT 35 03/01/2019 TSH 1.78 01/18/2017 Lab Results Component Value Date CHOL 141 03/01/2019 TRIG 122 03/01/2019 HDL 50 03/01/2019 LDLEX 67 03/01/2019 TSH 1.78 01/18/2017 IMAGING RESULTS Last Echo: January 07, 2017 1. The left ventricle is normal in size, mild concentric hypertrophy and hyperdynamic systo lic function EF >70%. 2. The right ventricle is moderately enlarged with normal systolic function. 3. The aortic valve is mildly calcified with mild aortic regurgitation. 4. There is no pericardial effusion. Last Cath: March 01, 2019 IMPRESSION: Two-vessel coronary artery disease with moderate disease of the mid left anterior descending artery, moderate disease of the mid distal right coronary artery as well as mid right posterior descending artery. 30-day event monitor March 08, 2019 No significant tachyarrhythmias or bradyarrhythmias Baseline rhythm is sinus rhythm. Average heart rate 74, fastest 129, slowest 51 The following portions of the patient's history were reviewed and updated as appropriate: Allergies, current medications, family history, past medical history, past social history, past surgical history and problem list. Thank you for allowing me to participate in the care of this patient. Please, do not hesitate to contact me with any further questions. Sissy Noyola MD 05/25/2019 *Portions of this report have been prepared using [employer] voice recognition software. The re port was reviewed for accuracy, however, sound-alike word errors, additions and/or deletions may occur. Please use the clinical context for clarification. If there is any question abou t this report, please contact me. documented in thi s encounter Plan of Treatment +--------+---------+ + + + | Date | Type | Specialty | Care Team | Description | +--------+---------+ + + + | 09/14/ | Office | Neurology | Sarahi Jade, | | 2019 | Visit | | MD Sushil [address] | | | | | | [address] | | | | | | [place] [address] | | | | | | [phone] | | | | | | | | +--------+---------+ + + + | 11/26/ | Office | Cardiology | Sissy Noyola | | 2019 | Visit | | MD Marisol [address] | | | | | | [place] | | | | | | [address] | | | | | | | | +--------+---------+ + + + + + +--------+ + + | Name | Type | Priori | Associated Diagnoses | Order Schedule | | | | ty | | | + + +--------+ + + | ECHO Complete | Echocardiog | Routin | Essential | Expected: | | | akanksha | e | hypertension Aortic | 05/25/2019, Expires: | | | | | valve | 05/25/2020 | | | | | regurgitation, | | | | | | nonrheumatic | | | | | | Syncope and collapse | | + + +--------+ + + documented as of this encounter Visit Diagnoses + + | Diagnosis | + + | Coronary artery disease involving [place] coronary artery of [place] heart without | | angina pectoris - Primary | + + | Essential hypertension Unspecified essential hypertension | + + | Aortic valve regurgitation, nonrheumatic Aortic valve disorders | + + | Syncope and collapse | + + documented in this encounter"
--- OUTSIDE RECORDS SUMMARY | ~2019-08-03 | XMS | Encounter Summary ---
Demographics + + + | Address | [address] | | | [place] [address] | + + + | Home Phone [...] Team Providers + +------+ + | Care Drive In Teller Name | Role | Phone | + +------+ + | Gracie Mariano MD | PCP | | + +------+ + Encounter Details +--------+ + + + + | Date | Type | Department | Care Team | Description | +--------+ + + + + | 05/16/ | Hospital | Diagnostic | | | | 2012 | Encounter | Radiology at [facility] | | | | | | [address] | | | | | | Loop Mailcode: | | | | | | [id number] [facility]ician[facility] | | | | | | [address] [place], | | | | | | [place] [address] | | | | | | [phone] | | | +--------+ + + + [...] + +--------+ + + + | X-RAY CHEST 2 VIEW | Routin | 05/16/2013 | (ankylosing | Results for this | | | e | 12:08 PM | spondylitis) (HCC) | procedure are in the | | | | PDT | | results section. | + +--------+ + + + documented in this encounter Results X-RAY CHEST 2 VIEW (05/16/2013 12:08 PM [...] | | | | ana laura / MARYELLEN | | | | | [...] | + +---------+ + + | [facility] DEPARTMENT OF | | | | | RADIOLOGY | | | | + +---------+ + + documented in this encounter Visit Diagnoses + + | Diagnosis | + + | (ankylosing spondylitis) (HCC) Ankylosing spondylitis | + + documented in this encounter"
--- OUTSIDE RECORDS SUMMARY | ~2019-08-03 | XMS | Encounter Summary ---
Demographics + + + | Address | [address] | | | [place] [address] | + + + | Home Phone [...] Team Providers + +------+ + | Care Market Editor Name | Role | Phone | + [...] | [address] | [address] [facility] | | | | | ([facility]) | [address] | [address] | | | | | Heterotopic | [address] | [address] [place], | | | | | ossification | [place], [place] | [place] | | | | | of bone | [address] | [address] | | | | | Right | Phone: | Phone: | | | | | shoulder | [phone] | [phone] | | | | | pain Rt | Fax: | Fax: | | | | | shoulder | [phone] | [phone] | | | | | Procedures | [...] Referral Needed | | 2015 | | [facility] [address] | [address] | | | | | [address] | [address] | | | | | Loop Mailcode: [address] | [place], [place] | | | | | Physician's | [address] | | | | | [address] [place], | [phone] | | | | | [place] [address] | | | | | | [phone] | | | +--------+ + + + [...]
--- OUTSIDE RECORDS SUMMARY | ~2019-08-03 | XMS | Encounter Summary ---
Demographics + + + | Address | [address] | | | [place] [address] | + + + | Home Phone [...] Team Providers + +------+ + | Care Verifying Machine Operator Name | Role | Phone | + +------+ + | Gracie Mariano MD | PCP | | + +------+ + Encounter Details +--------+ + + + + | Date | Type | Department | Care Team | Description | +--------+ + + + + | 08/11/ | Executive Sales Manager | Orthopaedics at | Jorge Walker MD | Osteoarthrosis, hip | | 2011 | | [address] [address] | [address] | (Primary Dx); Hip | | | | [address] | [address] | pain | | | | Mailcode: [id number] | [place], [place] | | | | | [facility] | [address] | | | | | [place], [place] | [phone] | | | | | [address] | | | | | | [phone] | | | +--------+ + + + [...] | | + +---------+ + + | [facility] DEPARTMENT OF | | | | [...]
--- OUTSIDE RECORDS SUMMARY | ~2019-08-03 | XMS | Encounter Summary ---
Demographics + + + | Address | [address] | | | [place] [address] | + + + | Home Phone [...] Team Providers + +------+ + | Care Identification Technician Name | Role | Phone | [...] | pain, | & Fractur | [address] [place], | | | | | bilateral | [address] | [place] | | | | | Ankylosing | [place] | [address] | | | | | spondylitis | [place], | Phone: | | | | | ([facility]) | [place] [address] | [phone] | | | | | Procedures | Phone: | Fax: | | | | | REQUEST TO | [phone] | [phone] | | | | | SURGERY | Fax: | | | | | | [place] | [phone] | | | | | | [place] [facility] HIP | | | | | [...] | [address] [address] | [place] | spondylitis (HCC); | | | | [address] | | Osteoarthrosis, hip | | | | Mailcode: [id number] | | | | | | [facility] | | | | | | [place], [place] | | | | | | [address] | | | | | | [phone] | | | +--------+---------+ + + + [...] an antalgic gait using a walker - 5/5 strength throughout left LE - Sensation intact [...]
--- OUTSIDE RECORDS SUMMARY | ~2019-08-03 | XMS | Encounter Summary ---
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 Please see the list below, [facility] has a list of products that contain [...] PM please call your surgeons' office for [id number]. PARKING Parking for patients and visitors is available in the [facility] Parking structure located across from the emergency department. Patient parking is available on level 1 and 3. [employer] parking is available on the top [...] ADVICE FOR DAY OF SURGERY: Remove nail spanish from at least one fingernail (if applicable) [...] surgeries scheduled to take place on the [place] at the [facility]: Surgeries scheduled in the [facility] ( [facility]): registration is located on the 4th floor of [facility] (Day Surgery). Surgeries scheduled in the [facility]: registration is located on the 9th floor . For surgeries scheduled to take place at the [facility]: registration i s located on the 4th floor (Surgery Center). AVOID THESE MEDICATIONS FOR 7 DAYS BEFORE SURGERY PRODUCTS CONTAINING ASPIRIN Angeli[place], Anacin, Anexsia with Codeine, Shun nos, Aspirin, Aspirin suppositories, Ascri ptin, Aspergum, Axotal, B-A-C, Baby Aspirin, Raji, BC Powder, Bexophene, Buffaprin, Bufferi n, Buffinol, Cama-Arthritis Strength, Congespirin, [place], Coricidin, Damason, Darvon, Dristan , Hilaria-Gesic, Digel, Dolprin #3 Tablets, Donatab, Doxaphene, Duragesic, Easprin, Ecotrin, Monalisa grin Forte, Emiprin, Emprazil, Equagesic, Equazine M, Excedrin, Fiogesic, Fiorgen PH, Fioric et, Fiorinal, 4-Way Cold Tablet Gemnisyn, Indocin, Liquprin, Lortab ASA, Magnaprin, Marnal, Meprobamate, Midol, Momentum, N orgesic, [place], Orphengesic, Pabalate, P-A-C, Percodan, Presalin, Robaxasil, Roxiprin, Tuan eto, Salocol SK-65 Compound, Sine-Aid, Sine-Off,, Doerun, Supac, Talwin Compound, Trigesic, Tolectin , Traiminicin, Vanquish, ZORprin, Zomax PRODUCTS CONTAINING IBUPROFEN Advil, Aleve, Haltran, Medipren, Midol, Motrin, Naproxyn, Nuprin, Rufen OTHER PRODUCTS WHICH MAY PROMOTE BLEEDING Vitamin E, Gingko Biloba, Marine Fatty Acids, [place]-3 Fish Oil Supplements documented in this encounter [...] arthroplasty. 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 He reports t hat after his surgery for diverticulitis at [facility] he had an episode of tachycardia post [...] Codeine Rash PMHx Diabetes mellitus type II 2008 Diverticula, colon [...] no Rate of cardiac , non fatal AR, non fatal cardiac arrest 0 risk factors [...] to this patient's care. EMPERATRIZ DOLAN MD [facility] [address] [place] [id number] documented in this e ncounter Plan of Treatment + + +--------+ + + | Name | Type | Priori | Associated Diagnoses | Order Schedule | | | | ty | | | + + +--------+ + + | MA COLLECTION VENOUS | Procedures | Routin | [...] Performed At | + + + | Non-Diabetic: | [facility] | | 4.0 - 5.7% Risk For Chronic Complications | REGIONAL | | In Adults: Low | LABORATORY | | <7.0% | | | Medium 7.0-7.9% | | | High >7.9% RLB | | | ([address] [facility]) [facility] [place] [address] | | | [place] [address] | | + + + + + + + + | Performing | Address | City/State/Zipcode | Phone Number | | Organization | | | | + + + + + | [facility] | [address] [facility] | [place] [address] | | | LABORATORY | | | [...] | [facility] | [address] | [place] [address] | | | PATHOLOGY | [address] [...] | | | DEPARTMENT | | | [place] | | | OF | | | [...] [facility] | [address] | [place] [address] | | | PATHOLOGY | [address] [...] [facility] | [address] | [place] [address] | | | PATHOLOGY | [address] [...] DEPT OF | [address] | [place], [place] | | | CARDIOLOGY | [address] | [address] | | + + + + + [...]
--- OUTSIDE RECORDS SUMMARY | ~2019-08-03 | XMS | Encounter Summary ---
Demographics + + + | Address | [address] | | | [place] [address] | + + + | Home Phone [...] Author + + + | Author | [facility] | + + + | Organization | [facility] | + + + | Address [...] Team Providers + +------+ + | Care Floor Sander Name | Role | Phone | + +------+ + | Gracie Mariano MD | PCP | | + +------+ + Encounter Details +--------+ + + + + | Date | Type | Department | Care Team | Description | +--------+ + + + + | 01/02/ | Telephone | Orthopaedics at | Dorothy Starks, | | | 2013 | | [address] [address] | [place] | | | | | [address] | | | | | | Mailcode: [id number] | | | | | | '[address] [place] | | | | | | [place], [place] | | | | | | [address] | | | | | | [phone] | | | +--------+ + + + [...]
--- OUTSIDE RECORDS SUMMARY | ~2019-08-03 | XMS | Encounter Summary ---
Demographics + + + | Address | [address] | | | [place] [address] | + + + | Home Phone [...] + + + | Author | [facility] | + + + | Organization | [facility] | + + + | [...] Team Providers + +------+ + | Care Vice President Supply Chain Name | Role | Phone | + [...] 03/13/ | Surgery | 6A Intra Op 3[address] | Milton Rodríguez MD | LAPAROSCOPIC | | 2012 | | [address] | [address] | CHOLECYSTECTOMY, | | | | Rd [facility] | [address] [place], | CONVERTED TOOPEN | | | | Hospital Admitting | [place] [address] | INTRAOPERATIVE | | | | Desk Located on the | [phone] | CHOLANGIOGRAM, | | | | 9th floor | | | | | | [place], [place] | | | | | | [address] | | | +--------+---------+ + + + [...] the resident s note. MILTON RODRÍGUEZ MD [facility] 10A [address] [place] [address] romRaghavendra mantilla MD - 0 03/20/2013 3:22 [...] of CVA. He was recently discharged from [facility] ([place], [place]) for acute cholecystitis. On 03/06/13 had sudden onset epigastric pain and self-presented to the hospital. Gallbladder US at that art e showed gallstones and possible acute cholecystitis. The patient eventually improved and wa s discharged for evaluation at [facility] EGS clinic. Prior abdominal surgery includes [...] documented as of this encounter Progress Notes RonRaghavendra mantilla MD - 03/18/2013 5:13 AM PDTFormatting of this note might be different f rom the original. [facility] DEPARTMENT OF SURGERY EMERGENCY GENERAL SURGERY Division [...] resol ution of const[place] [phone] pager number [facility] A [address] [facility] [address] ez Rainey EDUCATIONAL ADMINISTRATION TEACHER - 03/17/2013 2:33 PM PDT [facility] DEPARTMENT OF SURGERY EMERGENCY GENERAL SURGERY [...] other applicable data points. Please refer to EPIC for this information . PHYSICAL EXAM: LAST [...] ABX on Probi[place]: [place] [phone] pager number [facility] [address] [place] [facility] [place] [address] Anais Mccarthy MD - 03/16/2013 8:58 AM PDT [facility] DEPARTMENT OF SURGERY EMERGENCY GENERAL SURGERY [...] other applicable data points. Please refer to Diarize for this information . PHYSICAL EXAM: LAST [...] None Fluids: Saline locked Feeding: Diabetic Analgesia: ADHESIVE BANDAGE MACHINE OPERATOR 0.6/6mins Sedation: not indicated Thromboprophylaxis: enoxaparin, SCDs Head of bed: > 30 Ulcer prophylaxis: None Glycemic control: Insulin lispro Activity/PT/OT: Up ad farzana Yogurt: ABX on Probiotics: None TEZ RAINEY NP [facility] A [address] [place] [address] Nathalia Mccarthy MD - 03/15/2013 10:24 AM PDTFormatting of this note might be different from the tomasa l. [facility] DEPARTMENT OF SURGERY EMERGENCY GENERAL SURGERY Division of Trauma and Critical Care Attending Physician: Raf Tello MD Progress Note Note Date: 03/15/2013 Admission Date: 03/10/2013 JOSE RAFAEL CISNEROS, Hospital Day #5 INTERVAL HISTORY and SUBJECTIVE: No acute events overnight. Pt still complaining of some abdominal tightness. REVIEW OF SYSTEMS: Pain: Pain is still 03/01 with increased ADHESIVE BANDAGE MACHINE OPERATOR 03/14 Flatus: NO Tolerating diet: Tolerating clears [...] chair TID Acute on Chronic Pain - ADHESIVE BANDAGE MACHINE OPERATOR dilaudid increase dose range and lockout. - [...] None Fluids: Saline locked Feeding: Clears Analgesia: ADHESIVE BANDAGE MACHINE OPERATOR 0.6/6mins Sedation: not indicated Thromboprophylaxis: enoxaparin, SCDs Head of bed: > 30 Ulcer prophylaxis: None Glycemic control: Insulin lispro Activity/PT/OT: Up ad farzana Yogurt: ABX on Probiotics: [place] [phone] pager number [facility] A [address] [place] [address] ez Rainey EDUCATIONAL ADMINISTRATION TEACHER - 03/14/2013 9:05 AM PDT [facility] DEPARTMENT OF SURGERY EMERGENCY GENERAL SURGERY Division of Trauma and Critical Care Attending Physician: Raf Tello MD Progress Note Note Date: 03/14/2013 Admission Date: 03/10/2013 JOSE RAFAEL CISNEROS, Hospital Day #4 INTERVAL HISTORY and SUBJECTIVE: history of chronic pain. ADHESIVE BANDAGE MACHINE OPERATOR with pain. Will adjust dos e and [...] other applicable data points. Please refer to Diarize for this information . PHYSICAL EXAM: LAST [...] chair TID Acute on Chronic Pain - ADHESIVE BANDAGE MACHINE OPERATOR dilaudid increase dose range and lockout. - [...] D51/2 with 20kl Feeding: NPO Analgesia: dilaudid ADHESIVE BANDAGE MACHINE OPERATOR Sedation: not indicated Thromboprophylaxis: enoxaparin 120mg bid for Antiphospholipid syndrome Head of bed: > 30 Ulcer prophylaxis: 2 Glycemic control: adequate Activity/PT/OT: Ongoing Yogurt: ABX on Probiotics: [place] NP '[phone] pager number [facility] A [address] [place] [facility] [place] [address] Richie Mandel MD - 03/14/2013 1:52 AM PDT [facility] DEPARTMENT OF SURGERY EMERGENCY GENERAL SURGERY [...] other applicable data points. Please refer to Diarize for this information . PHYSICAL EXAM: LAST [...] oriented, gross motor function intact, director of primary grossly intact, LUNGS: CTAB CV: RRR, no [...] below: Likely DC george in AM, DC ADHESIVE BANDAGE MACHINE OPERATOR in AM Antiphospholipid antibody syndrome, chronic anticoagulation: [...] None Fluids: PO Feeding: Reg Analgesia: dilaudid radar operator Sedation: not indicated Thromboprophylaxis: Therapeutic lovenox Head of bed: > 30 Ulcer prophylaxis: n/a Glycemic control: SSI Activity/PT/OT: Ordered. - up ad farzana TID+[place] [phone] pager number [facility] A [address] [place] [address] Ricky Mosley MD - 03/13/2013 8:35 AM [...] EGS samson Pee Benjamin Surgery, R3 P aArthur allan MD - 03/12/2013 7:10 AM PDT [facility] DEPARTMENT OF SURGERY EMERGENCY GENERAL SURGERY PROGRESS NOTE: Note Date: 03/12/2013 Admission Date: 03/10/2013 JOSE RAFAEL CISNEROS, [id number] Hospital Day #2 SUBJECTIVE: - irritation and [...] follow up: EGS TBD. ARTHUR HERRERA MD [facility] [address] [facility] [place] [address] Diagnoses: 356351 Cholecystitis [id number] Ventral hernia V72.83 Other specified pre-operative examination Arthur Murry MD - 03/11/2013 7:02 AM PDT [facility] DEPARTMENT OF SURGERY Attending Physician: Raf Tello MD Progress Note Note Date: 03/11/2013 Admission Date: 03/10/2013 JOSE RAFAEL CISNEROS, [id number] Hospital Day #1 INTERVAL HISTORY and SUBJECTIVE: [...] hernia LABS: Recent Labs 12/28/12 1224 03/02/13 11103/10/13 1821 03/10/13 2147 03/11/13 0959 NA 135* [...] syndrome, chronic anticoagulation: On coumadin at home, eldonin carol ann INR for surgery on Wednesday - Therapeutic [...] up: EGS TBD. ARTHUR HERRERA MD Pager: [phone] [facility] [address] [place] [address] documented in this en counter [...] + + + + + | [facility] | [address] | [place] [address] | | | SERVICES, CORE | PARK [...] + + + + + | [facility] | [address] | [place] [address] | | | SERVICES, CORE | [address] [...] | | | LABORATORY | | | ALGERIAN | | | SERVICES, | | | [...] the MDRD equation recommended by the | [facility] | | National Kidney Disease Education Program. Estimated GFR | LABORATORY | | Interpretive Information: <60 mL/min/1.73 sq m | NAY KANG | | Chronic Kidney Disease <15 mL/min/1.73 [...] + + + + + | [facility] | [address] | [place] [address] | | | SERVICES, CORE | PARK [...] + + + + + | [facility] | [address] | [place] [address] | | | SERVICESNAY | [address] [...] ELLIE | [address] | [place], [place] | | | JOI POINT OF CARE | [address] | [address] | | | TESTS | | | [...] | 60 - 99 mg/dL | [facility] - | | | GLUCOSE, | [...] + + + | [facility] | [address] | [place], [place] | | | BABAR TAMEZ OF [place] | [address] | [address] | | | TESTS | | | [...] [facility] | [address] | [place] [address] | | | SERVICES, NAY | [address] [...] + + | [facility] | [address] [facility] [address] | [place] [address] | | | SERVICES, CORE | PARK [...] | | | LABORATORY | | | ALGERIAN | | | SERVICES, | | | [...] | + + + + + | [facility] | [address] | [place] [address] | | | SERVICES, CORE | GENNARO [...] | + + + + + | [facility] | [address] | [place] [address] | | | SERVICES, NAY | PARK [...] [facility] | [address] | [place], [place] | | | JOI POINT OF CARE | [address] | [address] | | | TESTS | | | [...] AR[facility]ETA | [address] | [place], [place] | | | BABAR TAMEZ OF [facility] | [facility] | [address] | | | TESTS | | | [...] AR[facility] | [address] | [place], [place] | | | BABAR TAMEZ OF TIMUR | [facility] | [address] | | | TESTS | | | [...] + + + + + | [facility] | [address] | [place] [address] | | | SERVICES, CORE | [address] | | | + + + + + MAGNESIUM, PLASMA (03/17/2013 6:59 AM PDT) + +-------+ + + + | Component | Value | Ref Range | Performed | Pathologist | | | | | At | Signature | + +-------+ + + + | MAGNESIUM,P | 2.0 | 1.8 - 2.5 mg/dL | [facility] | | | LASMA | | | [...] [facility] | [address] | [place] [address] | | | SERVICES, CORE | GENNARO [...] | | | LABORATORY | | | ALGERIAN | | | SERVICES, | | | [...] [facility] | [address] | [place] [address] | | | PEARL, CORE | PARK [...] + + + + + | [facility] | [address] | [place] [address] | | | SERVICESNAY | [address] [...] [facility] | [address] | [place], [place] | | | BABAR TAMEZ OF CARE | [address] | [address] | | | TESTS | | | [...] + + + | [facility] | [address] | [place], [place] | | | BABAR TAMEZ OF [place] | [address] | [address] | | | TESTS | | | [...] [facility] | [address] | [place], [place] | | | BABAR TAMEZ OF CARE | [address] | [address] | | | TESTS | | | [...] + + + + + | [facility] | [address] | [place] [address] | | | PEARL, CORE | [address] | | | + + + + + MAGNESIUM, PLASMA (03/16/2013 6:19 AM PDT) + +-------+ + + + | Component | Value | Ref Range | Performed | Pathologist | | | | | At | Signature | + +-------+ + + + | MAGNESIUM,P | 2.0 | 1.8 - 2.5 mg/dL | [facility] | | | LASMA | | | [...] | + + + + + | [facility] | [address] | [place] [address] | | | SERVICES, CORE | [address]ENN[address] [...] | | | LABORATORY | | | ALGERIAN | | | SERVICES, | | | [...] the MDRD equation recommended by the | [facility] | | National Kidney Disease Education [...] | + + + + + | [facility] | [address] | [place] [address] | | | SERVICES, CORE | PARK [...] (H) | 0.90 - 1.20 INR | [facility] | | | | | | LABORATORY [...] + + + + + | [facility] | [address] | [place] [address] | | | NAY KANG | [address] [...] [facility] | [address] | [place], [place] | | | JOI POINT OF CARE | [address] | [address] | | | TESTS | | | [...] + | [facility] | [address] | [place], [place] | | | JOI POINT OF CARE | [address] | [address] | | | TESTS | | | [...] [facility] | [address] | [place], [place] | | | JOI POINT OF CARE | [address] | [address] | | | TESTS | | | [...] [facility] | [address] | [place], [place] | | | JOI POINT OF CARE | [address] | [address] | | | TESTS | | | [...] [facility] | [address] | [place], [place] | | | JOI POINT OF CARE | [address] | [address] | | | TESTS | | | [...] | + + + + + | [facility] | [address] | [place] [address] | | | NAY KANG | [address] | | | + + + + + OPERATION RECORD (03/15/2013 1:17 PM PDT) + + | Transcriptions | + + | Devin Gonzalez MD - 03/13/2013 2:30 PM PDT Date: 03/13/2013 | | | | Attending Surgeon: Steffen Rodríguez M.D. | | | | Alliance Consultant(s): Devin Gonzalez MD | | Ricky Alexander [...] He was told to follow up in [facility] E[facility] clinic for further care. | [...] | | The patient was taken to [facility] OR number 6 and placed in [...] | | PD / HS | | [id number] / [id number] / [id number] / | | | | | + [...] | | | POC | | | JIO POINT | | | | | | [...] ELLIE | [address] | [place], [place] | | | [place] [facility] | [address] | [address] | | | TESTS | | | [...] | + + + + + | [facility] | [address] | [place] [address] | | | SERVICES, CORE | PARK [...] | + + + + + | [facility] | [address] | [place] [address] | | | NAY KANG | [address] [...] | | | LABORATORY | | | ALGERIAN | | | SERVICES, | | | [...] [facility] | [address] | [place] [address] | | | SERVICES, CORE | PARK [...] + + + + + | [facility] | [address] | [place] [address] | | | SERVICES, CORE | GENNARO [...] | 60 - 99 mg/dL | [facility] - | | | GLUCOSE, | [...] AR[facility] | [address] | [place], [place] | | | BABAR TAMEZ OF CARE | [address] | [address] | | | TESTS | | | [...] [facility] | [address] | [place], [place] | | | BABAR TAMEZ OF CARE | [address] | [address] | | | TESTS | | | [...] ELLIE | [address] | [place], [place] | | | [place] [facility] | [address] | [address] | | | TESTS | | | [...] | + + + + + | [facility] | [address] | [place] [address] | | | SERVICES, CORE | [address] | | | + + + + + MAGNESIUM, PLASMA (03/14/2013 6:45 AM PDT) + +---------+ + + + | Component | Value | Ref Range | Performed | Pathologist | | | | | At | Signature | + +---------+ + + + | MAGNESIUM,P | 1.6 (L) | 1.8 - 2.5 mg/dL | [facility] [...] [facility] | [address] | [place] [address] | | | NAY KANG | [address] [...] | | | LABORATORY | | | ALGERIAN | | | SERVICES, | | | [...] | + + + + + | [facility] | [address] | [place] [address] | | | SERVICES, CORE | PARK [...] + + + + + | [facility] | [address] | [place] [address] | | | SERVICES, CORE | GENNARO [...] | 60 - 99 mg/dL | [facility] - | | | GLUCOSE, | [...] | [facility] | [address] | [place], [place] | | | BABAR TAMEZ OF TIMUR | [facility] | [address] | | | TESTS | | | [...] [facility] | [address] | [place], [place] | | | BABAR TAMEZ OF CARE | [facility] | [address] | | | TESTS | | | [...] | 60 - 99 mg/dL | [facility] - | | | GLUCOSE, | [...] ELLIE | [address] | [place], [place] | | | JOI POINT OF CARE | [address] | [address] | | | TESTS | | | [...] ELLIE | [address] | [place], [place] | | | BABAR TAMEZ OF TIMUR | [facility] | [address] | | | TESTS | | | [...] + + + + + | [facility] | [address] | [place] [address] | | | PEARL, NYA | [address] | | | + [...] [facility] | [address] | [place], [place] | | | BABAR TAMEZ OF [place] | [address] | [address] | | | TESTS | | | [...] AR[facility] | [address] | [place], [place] | | | JOI POINT OF [facility] | [address] | [address] | | | TESTS | | | | + + + + + LORETTA CONDE (03/13/2013 11:54 AM PDT) + +-------+ + [...] [facility] | [address] | [place], [place] | | | JOI POINT OF CARE | [address] | [address] | | | TESTS | | | [...] | [facility] | [address] | [place], [place] | | | BAABR TAMEZ OF CARE | [address] | [address] | | | TESTS | | | [...] ARGUETA | [address] | [place], [place] | | | BABAR TAMEZ OF TIMUR | [address] | [address] | | | TESTS | | | [...] [facility] | [address] | [place], [place] | | | JOI POINT OF CARE | [address] | [address] | | | TESTS | | | [...] | [facility] | [address] | [place], [place] | | | BABAR TAMEZ OF CARE | [address] | [address] | | | TESTS | | | [...] [facility] | [address] | [place], [place] | | | JOI POINT OF CARE | [address] | [address] | | | TESTS | | | [...] | 60 - 99 mg/dL | [facility] - | | | GLUCOSE, | [...] + + + | [facility] | [address] | [place], [place] | | | BABAR TAMEZ OF [facility] | [address] | [address] | | | TESTS | | | | + + + + + ERAN (03/13/2013 6:14 AM PDT) + + + [...] | + + + + + | [facility] | [address] | [place] [address] | | | SERVICES, CORE | [address] [...] ARGUETA | 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 | [place], [place] | | | BABAR TAMEZ OF TIMUR | [address] | [address] | | | TESTS | | | [...] [facility] | [address] | [place], [place] | | | BABAR TAMEZ OF TIMUR | [facility] | [address] | | | TESTS | | | [...] | 60 - 99 mg/dL | [facility] - | | | GLUCOSE, | [...] ARGUETA | [address] | [place], [place] | | | JOI POINT OF CARE | [address] | [address] | | | TESTS | | | [...] + + + + + | [facility] | [address] | [place] [address] | | | SERVICES, CORE | PARK [...] | 60 - 99 mg/dL | [facility] - | | | GLUCOSE, | [...] ARGUETA | [address] | [place], [place] | | | BABAR TAMEZ OF TIMUR | [facility] | [address] | | | TESTS | | | | + + + + + CAPILLARY BLOOD GLUCOSE (NO CHG) POC (03/11/2013 7:13 PM PDT) + +---------+ [...] [facility] | [address] | [place], [place] | | | BABAR TAMEZ OF CARE | [facility] | [address] | | | TESTS | | | [...] | 60 - 99 mg/dL | [facility] - | | | GLUCOSE, | [...] [facility] | [address] | [place], [place] | | | JOI POINT OF CARE | [address] | [address] | | | TESTS | | | [...] ARGUETA | [address] | [place], [place] | | | BABAR TAMEZ OF TIMUR | [facility] | [address] | | | TESTS | | | [...] + + + + + | [facility] | [address] | [place] [address] | | | SERVICES, NAY | [address] [...] [facility] | [address] | [place], [place] | | | JOI POINT OF CARE | [address] | [address] | | | TESTS | | | [...] | + +---------+ + + | [facility] DEPARTMENT OF | | | | [...] [facility] | [address] | [place] [address] | | | SERVICES, | [address] [...] | + + + + + | [facility] | [address] | [place] [address] | | | SERVICES, | [address] [...] [facility] | [address] | [place] [address] | | | SERVICES, NAY | [address] [...] + + + + + | [facility] | [address] | [place] [address] | | | SERVICES, CORE | [address] [...] | + + + + + | [facility] | [address] | [place] [address] | | | SERVICES, CORE | [address] [...] + + + + + | [facility] | [address] | [place] [address] | | | SERVICES, CORE | [address] [...] + + + + + | [facility] | [address] | [place] [address] | | | SERVICES, NAY | [address] [...] [facility] | [address] | [place] [address] | | | SERVICES, CORE | [address] [...] (H) | 0.90 - 1.20 INR | [facility] | | | | | | LABORATORY [...] + + + + + | [facility] | [address] | [place] [address] | | | SERVICES, CORE | [address] [...] | | | LABORATORY | | | ALGERIAN | | | SERVICES, | | | [...] + + + + + | [facility] | [address] | [place] [address] | | | SERVICES, [facility] | [address] | | | + [...] [facility] | [address] | [place], [place] | | | JOI POINT OF CARE | [address] | [address] | | | TESTS | | | [...] view image for the detailed interpretation from [employer] results. | CARDIOLOGY | + + + + + | Procedure Note | + + | Interface, Cardiology Results - 03/10/2013 7:22 PM PDT Please click on view image | | for the detailed interpretation from [employer] results. | + + + + + + + | Performing | Address | City/State/Zipcode | Phone Number | | Organization | | | | + + + + + | [facility] | [address] | [place], [place] | | | CARDIOLOGY | [address] | [address] | | + + + + + [...]
--- OUTSIDE RECORDS SUMMARY | ~2019-08-03 | XMS | Encounter Summary ---
Demographics + + + | Address | [address] | | | [place] [address] | + + + | Home Phone [...] Providers + +------+ + | Care Program Architect Name | Role | Phone | [...] floor | | | | | | [place], [place] | | | | | | [address] | | | +--------+ + + + [...]
--- OUTSIDE RECORDS SUMMARY | ~2019-08-03 | XMS | Encounter Summary ---
Demographics + + + | Address | [address] | | | [place] [address] | + + + | Home Phone [...] Team Providers + +------+ + | Care Geothermal Electrical Engineer Name | Role | Phone | [...] | | | | problem | PA-C [id number] | | | | | | Procedures | MARYLOU Myrick | | | | | | PHYSICAL | [place], | | | | | | THERAPY | [place] | | | | | | REFERRAL | [address] | | | | | | | Phone: | | | | | | | [phone] | | | | | | | Fax: | | | | | | | [phone] | | +--------+--------+ + + + + [...] displaced | | 2018 | Visit | [facility] [address] | PA-C [address] | fracture of second | | | | Ave Mailcode: | Ave [facility], [place] | cervical vertebra, | | | | [facility] | [address] | unspecified fracture | | | | and Healing, | [phone] | morphology, initial | | | | [address] | | encounter (HCC) | | | | [place], [place] | | (Primary Dx); Neck | | | | [address] | | pain; Balance | | | | [phone] | | problem; Ankylosing | | | | | | spondylitis, | | | | | | unspecified site of | | | | | | spine ([facility]) | +--------+---------+ + + + [...] traveling is a hardship. [facility] [address] [address] documented in this encounter Plan [...]
--- OUTSIDE RECORDS SUMMARY | ~2019-08-03 | XMS | Encounter Summary ---
Demographics + + + | Address | [address] | | | [place] [address] | + + + | Home Phone [...] Team Providers + +------+ + | Care Crate Opener Name | Role | Phone | + [...] | Diagnoses | Walker, | [facility] | | | | Therapy | | Jorge Paige MD | [address] | | | | | Osteoarthros | [address] | | | | | is, | Taj Wilfrido | Mailcode: | | | | | unspecified | Mary Ruiz | [facility] Center | | | | | whether | [place], [place] | [facility] | | | | | generalized | [address] | and Healing, | | | | | or | Phone: | Building [address], | | | | | localized, | [phone] | [address] | | | | | pelvic | Fax: | [place], [place] | | | | | region and | [phone] | [address] | | | | | thigh | | Phone: | | | | | Procedures | | [phone] | | | | | PHYSICAL | | Fax: | | | | | THERAPY | | [phone] | | | | | REFERRAL | | | +--------+--------+ + + + + Encounter Details +--------+---------+ + + + | Date | Type | Department | Care Team | Description | +--------+---------+ + + + | 03/02/ | Office | [facility] | Jasmin Hicks | Osteoarthrosis, hip | | 2012 | Visit | Therapy Services at | [address] | (Primary Dx) | | | | [facility] | [place] [address] | | | | | [address] | [phone] | | | | | Mailcode: [facility] | | | | | | [facility] | | | | | | and Healing, | | | | | | [facility], [facility] | | | | | | Floor [place], [place] | | | | | | [address] | | | | | | [phone] | | | +--------+---------+ + + + [...] documented as of this encounter Progress Notes Jasmin Claudio - 03/02/2013 9:10 AM PDT [id number] JORGE L CISNEROS Date of : 1950 Start of care: 03/02/2013 Date of onset: 01/05/2013 Referring/Attending Practitioner: Jorge Walker MD . Primary/Referral Diagnosis/ICD-9: 1. Osteoarthrosis, hip 715.95 Insurance: Payor: [place]ICAID [place] Plan: [employer]US Product Type: Medicaid Service period from: 03/02/2013 to: 03/30/2013 Number visits used/authorized: 1/eval then auth HIP PRE-OP SUBJECTIVE: History of Presenting Problem: Jorge L Cisneros is a 62 y.o. male who is pre-op for planned R T PALMA. History of L SUSHIL. Pt states that he is unhappy with previous experience at [facility]; would like to make sure he has PT after this hip surgery. Pt lives in [place]. Functional limitations Unable to walk without bilat [...] Heel slides Supine hip abduction ASSESSMENT: Jorge Lkevin Cisneros is pre-op for SUSHIL. Pt very [...] Frequency/Duration: 1x/week x12 weeks. Pt lives in [place] and has a PT there. Treatment began: 1244 Treatment ended: 1314 This note is to serve as the discharge summary if Jorge L Cisneros fails to attend further Phys ical Therapy appointments or contact the therapist regarding any change in their status. JASMIN CLAUDIO [facility] [address] [place] [place] Mailcode: [address] [address] Payment Authorization Request and Status Report: [facility] Contact Contact Billing Provider Number: [id number] Therapist Provider Number: [id number] Referring Prescribing Practitioner: Jorge Walker MD Primary Diagnosis/ICD-9: 1. Osteoarthrosis, hip Prescribing Practitioner Provider Number: [facility] Physician [id number]. Outside [facility] Physician: _ Proposed PA Start Date: Date PA is approved. Procedure Codes: Brief Evaluation 38227 Modalities Codes: None Minutes per session: 45 [...]
--- OUTSIDE RECORDS SUMMARY | ~2019-08-03 | XMS | Encounter Summary ---
Demographics + + + | Address | [address] | | | [place] [address] | + + + | Home Phone [...] Team Providers + +------+ + | Care Concrete Mixing Plant Laborer Name | Role | Phone | + +------+ + | Gracie Mariano MD | PCP | | + +------+ + Encounter Details +--------+ + + + + | Date | Type | Department | Care Team | Description | +--------+ + + + + | 12/13/ | Telephone | [facility] | Adriano Chavez, | | | 2013 | | [place] [phone] | | | | | | [place] [address] [place] | | | | | | Mailcode: [place] | | | | | | [facility] Health and | | | | | | [facility] | | | | | | [place], [place] | | | | | | [address] | | | | | | [phone] | | | +--------+ + + + [...]
--- OUTSIDE RECORDS SUMMARY | ~2019-08-03 | XMS | Encounter Summary ---
Demographics + + + | Address | [address] | | | [place] [address] | + + + | Home Phone [...] Team Providers + +------+ + | Care Chemical Dependency Nurse Name | Role | Phone | + [...] | | | | | | [place], | | | | | | [place] [address] | | | | | | [phone] | | | +--------+ + + + [...] | | + +---------+ + + | [facility] DEPARTMENT OF | | | | | RADIOLOGY | | | | + +---------+ + + documented in this encounter Visit Diagnoses + + | Diagnosis | + + | Hip pain Pain in joint, pelvic region and thigh | + + documented in this encounter"
--- OUTSIDE RECORDS SUMMARY | ~2019-08-03 | XMS | Encounter Summary ---
Demographics + + + | Address | [address] | | | [place] [address] | + + + | Home Phone [...] Author | [facility] | + + + | Organization | [facility] | + + + | Address | [...] Team Providers + +------+ + | Care White Sugar Supervisor Name | Role | Phone | [...] | | | is, hip Hip | [facility] | [place] | | | | | pain, | & Fractur | [address], | | | | | bilateral | [address] | [place] | | | | | Ankylosing | [place] | [address] | | | | | spondylitis | [place], | Phone: | | | | | ([facility]) | [place] [address] | [phone] | | | | | Procedures | Phone: | Fax: | | | | | REQUEST TO | [phone] | [phone] | | | | | SURGERY | Fax: | | | | | | COMPUTATOR | [phone] | | | | | | PA TOTAL HIP | | | | | [...] Pavilion | | | | | | [place], [place] | | | | | | [address] | | | | | | [phone] | | | +--------+---------+ + + + [...]
--- OUTSIDE RECORDS SUMMARY | ~2019-08-03 | XMS | Encounter Summary ---
Demographics + + + | Address | [address] | | | [place] [address] | + + + | Home Phone [...] Team Providers + +------+ + | Care Tin [place] Laborer Name | Role | Phone | + +------+ + | Gracie Mariano MD | PCP | | + +------+ + Encounter Details +--------+ + + + + | Date | Type | Department | Care Team | Description | +--------+ + + + + | 12/13/ | Telephone | [facility] | Adriano Chavez, | | | 2013 | | [place] [address] | | | | | | [place] [address] [place] | | | | | | Mailcode: [place] | | | | | | [facility] Health and | | | | | | [facility] | | | | | | [place], [place] | | | | | | [address] | | | | | | [phone] | | | +--------+ + + + [...]
--- OUTSIDE RECORDS SUMMARY | ~2019-08-03 | XMS | Encounter Summary ---
Demographics + + + | Address | [address] | | | [place] [address] | + + + | Home Phone [...] Team Providers + +------+ + | Care Filler Sifter Machine Name | Role | Phone | [...] 02/18/ | Surgery | 6A Intra Op [id number] | Pablito Barroso MD | EXTENSION OF FUSION | | 2018 | | [address] | [address] | TO OCCIPUT [address] | | | | Rd [facility] | [facility] [place] | LAMINECTOMY | | | | Hospital Admitting | [address] | | | | | Desk Located on the | [phone] | | | | | 9th floor | | | | | | [place], [place] | | | | | | [address] | | | +--------+---------+ + + + [...] Attending Physician: Deandre Austin MD PCP: Scooby Mclcure MD Admission Date: 02/15/2018 Discharge Date: 22 [...] be expected to seek care from your [facility] care provider. If you do [...] able to renew opioid prescriptions in a dcln-li-mvjt clinic visit. Our clinic sees patients on [...] week. Specialty: Family Medicine Why: follow up [facility] Contact information [facility] [address] [place] [address] Trauma Center at [facility]. Specialty: Trauma Center Why: As needed Contact information [facility] [facility] Mailcode: L223a [facility] [address] [facility] [address] Additional information: The [facility] is the building just past [facility]. Turn ri ght immediately past the Pavilion. The entrance to garage B will be on your right just beyon d the main doors to the Pavilion. An elevator in the parking garage will take patients direc tly to the floor of the clinic. The Trauma Clinic is located on the 2nd floor, [address]. Pl ease check in at the front office manager. Maps and directions can be found at [email or web address] .cfm Vitals on discharge: Ht 1.778 m (5' 10"), Wt 114.5 kg (252 lb 6.8 oz), BP 167/52, Pulse 69, Temperature 36.6 C (97.9 F), RR 16, SpO2 100%, BMI 36.22 kg/(m^2). Outstanding labs/studies: None Discharging Physician: David Anderson MD Attending Physician: Deandre Austin MD Associated attestation - Familia Early MD - 02/23/2018 9:15 AM PDTAttending: I saw and examined Jose Rafael Cisneros ([id number]) with the residents on 02/22/2018 and agree with the assessment and plan as outlined in this discharge summary. Familia Early MD Lead [facility] Trauma, Critical Care & Acute Care Surgery [...] doctor if you can take an o cne-eih-syomfmp medicine. Follow your doctor's directions for returning [...] "Broken Neck: Care Instructions", log into your MobileA[employer] account at [email or web address] :[email or web address]. You can enter U000 in the "[facility]" search box. Not on MobileAds? Review the MobileA[employer] section of your After Visit Summary for directions on ho w to sign up. Current as of: November 10, 2016 Content Version: [id number] [employer]. Care instructions adapted under license by [facility] [employer] & [facility]. If you have questions about a medical condition or this instr uction, always ask your healthcare professional. [employer] disclaims any lakhwinder anty or liability for your use of this information. AttachmentsThe following attachments cannot be sent through Care Everywhere.Cervical Spinal Fusion: Post-op (South African)DVT (Deep Vein Thrombosis) (South African)documented in this encounter Medications at Time of [...] off at this time FABIENNE PAIGE PA-C [facility] [address] [place] [address] Tino Swanson MD - 02/21/2018 11:51 AM [...] pain control, awaiting PT/OT. Tino Cortez MD [facility] [place] [address] [facility] [address] Associated attestation - Familia Early MD - 02/22/2018 10:10 AM PDTAttending: I saw and examined Jose Rafael Cisneros ([id number]) with the residents on 02/21/2018 and agree with the assessment and plan as outlined in this note and participated in the planning of care. Familia Early MD Lead [facility] Division of Trauma and Critical Care Erica [...] General: 67 y/o male in [facility] Incision: C/D/I, no erythema-conrado present Neuro: Alert [...] -Will arrange outpatient FU ERICA CALDERON PA-C [facility] [address] [place] [address] Pg [address] MEDICATIONS Current Facility-Administered Medications Medication acetaminophen (TYLENOL) [...] Emily Pichardo MD - 02/20/2018 2:28 PM PDTFormatting of this note might be different from the mikki lKerrie NEUROSURGERY PROGRESS NOTE 02/20/2018 Hospital Day #: [...] LMWH when INR is >2 Please page [phone] with any questions or concerns. Hugo Daniel M.D. Neurological Surgery Resident PGY-1 Pager: [phone] signed by Hugo Daniel MD at 02/20/2018 2:30 PM Tino Swanson MD - 02/20/2018 2:25 PM PDTFormatting of this note might be different from the or iginal. Trauma Acute Care - Progress Note Name: [...] neuro checks, pain control. Tino Cortez MD [facility] [address] [facility] [address] Associated attestation - Munira Best MD,MPH - 02/20/2018 5:15 PM PDTI saw and evaluat ed the patient. I agree with the findings and the plan of care as documented in the residen t s note. Adjusting pain control up as the patient has acute on chronic pain. Further, cl eared for full dose anticoagulation initiation today (VTE) Munira Best MD, MPH heel seat fitter Trauma, Critical Care & Acute Care Surgery [facility] [place] Jakob Portillo MD - 02/19/2018 10:20 AM [...] dose beginning the morning of 02/20. - [facility] made aware by page APLA/History of [...] my supervising physicians. Jakob Portillo, PGY-1 Surgery [address] Division of Trauma Department of Surgery Mail Code: L611 [address] [place] [address] Associated attestation - Munira Best MD,MPH - 02/19/2018 8:48 PM PDTTSICU ATTENDING M EDICAL DECISION MAKING I examined this patient with the ICU team. I have personally reviewed all pertinent labar otory findings, radiographs, and physiologic parameters. I personally performed pertinent p arts of the physical examination and personally formulated the plan with the TSICU team. Munira Best MD, MPH heel seat fitter Trauma, Surgical Critical Care, & Acute Care Surgery [facility] [place] Munira Fang MD - 02/19/2018 8:01 AM PDT Neurosurgery Progress Note Date: 02/19/2018 Admitting Physician: Deandre Austin MD HPI: Jose Rafael Cisneros is a 67 y.o. male admitted to [facility] for trauma Interval Update: OR [...] 41 PO2 78 81 HCO3 26.0 25.4 B1NPCKRU 95.3 96.3 CSF Results No results for [...] Please contact the neurosurgery resident on-call pager [phone] with questions. Munira Moore MD Neurological Surgery PGY2 ona Fritz n - 02/18/2018 6:18 PM PDTPost-Operative Neurological Exam [...] p osterior spinal instrumentation and fusion in 2007), DMII, anti-phospholipid syndrome, and h istory of [...] Post-op cefazolin Endocrinology: T2DM- persistent hyperglcemia- - - diet resume this afternoon - back [...] my supervising physicians. Jakob Portillo, PGY-1 Surgery 88[address] Division of Trauma Department of Surgery Mail Code: L611 [address] [place] [address] Associated attestation - Aracelis Whittington MD - 02/21/2018 10:50 PM PDTICU Attending: I saw and examined Jose Rafael Cisneros ([id number]) with the residents on 02/18/18 and agree with t he assessment and plan as outlined in this note and participated in the planning of care. 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 male admitted to [facility] for trauma Interval Update: NPO [...] SILT Data Complete Blood Count/Coags Recent Labs 02/17/183002/18/184102/18/1891102/18/18 1041 WBC 9.36 9.43 -- -- HB 12.6* 13.2* -- -- HCT 37.6* 38.9* 38.0* 38.2* PLT 192 218 -- -- Recent Labs 02/17/183002/18/18 004 INRPT 1.07 1.19 Blood Gas Recent Labs 02/18/1891102/18/18 1041 PH 7.36* 7.40 PCO2 46* 41 PO2 78 81 HCO3 26.0 25.4 G5MGXISI 95.3 96.3 CSF Results No results for [...] susceptible Staphylococcus aureus isolated. Assesment: Jose Rafael L Cisneros is a 67 y.o. male admitted on 02/15/2018 w olivia madsen who had GLF and unstable C2 fracture. PLAN: -OR today -freq neuro checks -cont ccollar -NSGY will follow Please contact the neurosurgery resident on-call pager [phone] with questions. Munira Moore MD Neurological Surgery PGY2 azuMunira Mayo MD - 02/17/2018 9:54 AM PDT . Neurosurgery Progress Note Date: 02/17/2018 Admitting Physician: Deandre Austin MD HPI: Jose Rafael Cisneros is a 67 y.o. male admitted to [facility] for trauma Interval Update: NPO [...] Complete Blood Count/Coags Recent Labs 02/16/18 00502/17/18 003 WBC 12.85* 9.36 HB 13.1* 12.6* HCT 38.7* 37.6* PLT 217 192 Recent Labs 02/15/18 1533 02/17/18 0031 INRPT 1.46* 1.07 Blood Gas No results for input(s): FIO2, PH, PCO2, PO2, HCO3, RPCMH6VNO, N4FXGSJQ, A7TAHUDAB in the l ast 720 hours. CSF [...] Please contact the neurosurgery resident on-call pager [phone] with questions. Munira Moore MD Neurological Surgery [...] Intake/Output Summary (Last 24 hours) at 02/17/18 0737 Last data filed at 02/17/18 0705 Gross [...] Department of Surgery Mail Code: L611 [address] [place] [address] Associated attestation - Aracelis Whittington MD - 02/19/2018 10:54 PM PDTICU Attending: I saw and examined Jose Rafeal Cisneros ([id number]) with Vandana Lora PA-C on 02/17/18 and [...] after spine surgery. Aracelis Whittington MD FACS chemotherapist Division of Trauma, Critical Care & Acute Care Surgery Jakob Portillo MD - 02/16/2018 3:38 PM PDTPer neurosurgery, case canceled today due to OR availability. Diabetic diet started. NPO at midnight for OR 02/17. Jakob Portillo, PGY-1 Surgery 40478 Jamie Hutton MD - 0 02/16/2018 11:34 [...] on xarelto Jamie Parra MD Neurosurgery PGY1 51625 Jakob mullen MD - 0 02/16/2018 9:25 [...] to have plan for after OR from NS. prophy sooner? Infectious Diseases: No acute concerns [...] Department of Surgery Mail Code: L611 [address] [place] [address] Associated attestation - Aracelis Whittington MD - 02/17/2018 4:00 PM PDTAttending: I saw and examined Jose Rafael Cisneros ([id number]) with the residents on 02/16/18 and agree with t he assessment and plan as outlined in this note and participated in the planning of care. Aracelis Whittington MD FACS chemotherapist Division of Trauma, Critical Care & Acute Care Surgery Munira Fang MD - 02/16/2018 5:00 AM PDT Neurosurgery Progress Note Date: 02/16/2018 Author: MUNIRA JACKSON MD Admitting Physician: Deandre Austin MD HPI: Jose Rafael Cisneros is a 67 y.o. male admitted to [facility] for trauma Interval Update: NPO [...] for input(s): FIO2, PH, PCO2, PO2, HCO3, BJTWE0OPO, I1SRLOSC, A3LLGIROG in the l ast 720 hours. CSF [...] Please contact the neurosurgery resident on-call pager [phone] with questions. Munira Moore MD Neurological Surgery [...] [facility] | [address] | [place], [place] | | | [facility] | [address] | [address] | | | TESTS | | | [...] | Dictation initiated: Myrtle Metz MD 02/22/2018 3:03 | | | PM | | + + + + [...] + + + | [facility] | [address] | [place], [place] | | | [facility] | [address] | [address] | | | TESTS | | | [...] + + | Blood - Blood | | (substance) | + + + + + | [...] [facility] | [address] | [place] [address] | | | [facility] | [address] [...] - [facility] | [address] | [place], [place] | | | [facility] | [address] | [address] | | | TESTS | | | [...] (H) | 70 - 99 mg/dL | [place] - | [...] + + + | [facility] | [address] | [place], [place] | | | [facility] | [address] | [address] | | | TESTS | | | [...] [facility] | [address] | [place], [place] | | | [facility] | [address] | [address] | | | TESTS | | | [...] - [facility] | [address] | [place], [place] | | | [facility] | [address] | [address] | | | TESTS | | | [...] (H) | 70 - 99 mg/dL | [place] | [...] + + + | [facility] | [address] | [place], [place] | | | [facility] | [address] | [address] | | | TESTS | | | [...] + + | Blood - Blood | | (substance) | + + + + + | [...] [facility] | [address] | [place] [address] | | | NAY KANG | [address] [...] [facility] | [address] | [place], [place] | | | [facility] | [address] | [address] | | | TESTS | | | [...] (H) | 70 - 99 mg/dL | [facility] - | | | GLUCOSE, [...] [facility] | [address] | [place], [place] | | | [facility] | [address] | [address] | | | TESTS | | | [...] [facility] | [address] | [place], [place] | | | [facility] | [address] | [address] | | | TESTS | | | [...] + + | Blood - Blood | | (substance) | + + + + + | [...] + + + + + | [facility] | [address] | [place] [address] | | | [facility] | [address] | | | + + + + + US SOFT TISSUE HEAD & NECK (02/20/2018 1:09 PM PDT) + + | Specimen | + + | | + + + + + | Narrative | Performed At | + + + | EXAM: US THYROID. HISTORY: Thyroid ultrasound for mass seen on | [facility] | | CT scan. COMPARISON: CTA neck 02/15/2018 TECHNIQUE: Ultrasound | RADIOLOGY VOICE | | of the thyroid. FINDINGS: Size: Right lobe 1.6 x 1.7 x 3.8 cm. | RECOGNITION 2 | | Left lobe 4.4 x 3.7 x 5.5 [...] Cruz MD 02/20/2018 4:22 PM | | | Preliminary: Jorge Mckeon MD Dictation initiated: | | | Jorge Mckeon MD 02/20/2018 2:17 PM | [...] necessary, edited the report. I agree with [facility] report as now presented. | | | [...] [facility] | [address] | [place], [place] | | | [facility] | [address] | [address] | | | TESTS | | | [...] [facility] | [address] | [place], [place] | | | [facility] | [address] | [address] | | | TESTS | | | [...] - [facility] | [address] | [place], [place] | | | [facility] | [address] | [address] | | | TESTS | | | [...] (H) | 70 - 99 mg/dL | [facility] - | | | GLUCOSE, [...] [facility] | [address] | [place], [place] | | | [facility] | [address] | [address] | | | TESTS | | | [...] + + | Blood - Blood | | (substance) | + + + + + | [...] + | [facility] | [address] | [place] [address] | | | NAY KANG | [address] [...] [facility] | [address] | [place], [place] | | | [facility] | [facility] | [address] | | | TESTS | | | [...] (H) | 70 - 99 mg/dL | [facility] - | | | GLUCOSE, [...] [facility] | [address] | [place], [place] | | | [facility] | [facility] | [address] | | | TESTS | | | [...] [facility] | [address] | [place], [place] | | | [facility] | [address] | [address] | | | TESTS | | | | + + + + + PROCEDURE NOTE (02/18/2018 3:25 PM PDT)[facility] VENOUS DUPLEX LOWER EXTREMITY BILAT COMP [...] Note | + + | Service Account, [employer] Res In Interface - 02/18/2018 3:50 PM PDT [...] Attending | | Surgeon: Pablito Barroso MD Retail Equipment Associate(s): All López MD, | | PhD Preoperative [...] after a C7 fracture. He presented to [facility] | | via Trauma having [...] the occipital plate. A | | [employer] Synapse plate was sized and placed on [...] These were then final tightened using the hose handler instrumentation. | | The area was thoroughly [...] the critical portions of the | | operation.Pablito Barroso MDKG/MODLDD: 02/18/2018 12:36:03DT: 02/18/2018 13:17:58Job #: | | [id number] | |KG/MODL | | | | | | /[id number] | + + CAPILLARY BLOOD GLUCOSE (NO [...] | | POC | | | [facility] | | | | | | OF [...] [facility] | [address] | [place], [place] | | | [facility] | [address] | [address] | | | TESTS | | | [...] Post-operative | | | anticoagulation recommendations: -Use pneumatic | | | compression stockings until ambulatory -3d | | | after surgery: start LMWH 40 mg SQ if there is surgical hemostasis | | | -6d after surgery: increase to LMWH 40 mg SQ | | | BID -9d after surgery: increase to LMWH 1 mg/kg SQ | | | BID, and START warfarin -Stop LMWH when | | | INR is > 2 | | + [...] | | [facility] - | | | ART POC | | | [facility] | | | | | | [facility] | | | | | | OF CARE | | | | | | TESTS | | + + + + + + + + | Specimen | + + | Blood - Blood | | (substance) | + + + + + + + | Performing | Address | City/State/Zipcode | Phone Number | | Organization | | | | + + + + + | [facility] | [address] | [place], [place] | | | [facility] | [facility] | [address] | | | TESTS | | | [...] [facility] | [address] | [place], [place] | | | [facility] | [facility] | [address] | | | TESTS | | | | + + + + + ABG-FULL LORETTA SPARKS (02/18/2018 9:12 AM PDT) + + + + + + | Component | Value | Ref Range | Performed | Pathologist | | | | | At | Signature | + + + + + + | PH | 7.36 (L) | 7.37 - 7.44 | [facility] - | | | AAYUSH, | | | [facility] | | | POC | | | [...] + + | Blood - Blood | | (substance) | + + + + + + + | Performing | Address | City/State/Zipcode | Phone Number | | Organization | | | | + + + + + | [facility] | [address] | [place], [place] | | | [facility] | [address] | [address] | | | TESTS | | | [...] + | [facility] | [address] | [place], [place] | | | [facility] | [address] | [address] | | | TESTS | | | [...] + + | Blood - Blood | | (substance) | + + + + + | [...] [facility] | [address] | [place] [address] | | | SERVICES, CORE | PARK [...] + + | Blood - Blood | | (substance) | + + + + + | [...] [facility] | [address] | [place] [address] | | | PEARL, NAY | PARK [...] + + | Blood - Blood | | (substance) | + + + + + | [...] [facility] | [address] | [place] [address] | | | SERVICES, CORE | PARK [...] | | | LABORATORY | | | [place] | | | SERVICES, | | | [...] + + | Blood - Blood | | (substance) | + + + + + | Narrative | Performed At | + + + | GFR is estimated using the MDRD equation recommended by the | [facility] | | National Kidney Disease [...] Rapidly changing kidney | | | function - Amputees, paraplegics, or other muscle-wasting diseses | | + + + + + + + + | Performing | Address | City/State/Zipcode | Phone Number | | Organization | | | | + + + + + | [facility] | [address] | [place] [address] | | | PEARL, NAY | [address] | | | + + + + + INTRAOPERATIVE NEURO MONITORING (02/18/2018) + + + | Narrative | Performed At | + + + | Patient Name: Jose Rafael Cisneros Date of : 1950 Medical | | | Record Number: [id number] Date of Test: 02/18/2018 Place of | | | Service: IP Intra Op [phone] [id number] - [id number] INTRAOPERATIVE NEURO | | | MONITORING IOM: 10SS History: This is a 67 y.o. male patient | | | with a history of closed fracture of second cervical vertebra. | | | Patient was admitted for occiput to C1 posterior spinal fusion | | | extension. Conditions of Recording: Repetitive electrical | | | stimulation of the posterior tibial nerve was performed at the ankle, | | | with recordings over the popliteal fossa, cervical spine and scalp. | | | Repetitive electrical stimulation of the ulnar nerve was | | | performed at the wrist, with recordings over the brachial plexus, the | | | cervical spine and the scalp. To obtain transcranial electrical | | | motor evoked potentials, trains of 6 pulses with an individual pulse | | | duration of 0.5 ms and an interstimulus interval of 4 ms were | | | delivered over the bilateral central regions of the scalp. Train | | | of four response were repetitively done to compare the ratio of the | | | fourth to the first twitch when stimulated at a rate of 2 Hz to assess | | | the degree of neuromuscular blockade causing paralysis or muscle | | | weakness which would also result in decreased EMG activation from | | | stimulation. Intraoperative EEG was recorded using 8 channels in a | | | digital acquisition system. Electrodes were placed according to the | | | international 10-20 system. Description of recording: | [...] potential, N13, at latencies of approximately 13.6 msec. | | | The cortical waveform, N20, was present at latencies of about 24 | | | msec. Following transcranial stimulation, there were reproducible | | | EMG responses from the upper and lower extremity muscles bilaterally. | | | The EEG contained symmetric mixed frequency activity. During | | | portions of the recording, the EEG was maintained in a | | | burst-suppression pattern with the use of increased anesthetics. There | | | were no lateralizing or other significant changes in the EEG during | | | the procedure. Intraoperative interpretation was performed using | | | real-time display of intraoperative neurophysiologic recordings for 3 | | | hours 27 minutes (8:00-11:27). Dr. Fung was continuously available for | | | communication with the recording technologist and the operative team | | | during this time. There was full attention on this case by Dr. Prater | | | Kenton for 1 hour and 12 minutes (8:00-8:30 and 10:45-11:27). | | | Impression: Intraoperative neuromonitoring with no significant | | | changes in baseline waveforms. Electronically signed on 03/29/2018 | | | 12:33 PM by Yadiel Fung M.D., Ph.D. Professor, Department | | | of Neurology Clinical Neurophysiology Department Suggested | | | CPT: G0453 - IOM Continuous undivided attention to single patient x 5 | | | @ 15 min(s) G0453 - IOM Continuous divided attention to single | | | patient x 9 @ 15 min(s), [place] [address] - Short Latency EP's | | | Upper AND Lower extremities 11025 - Central Motor EP's Upper AND | | | Lower extremities 83996 - EEG in Sleep Suggested Diagnosis: S14.152A | | | Other incomplete lesion at c2 level of cervical spinal cord, initial | | | encounter | | + + + CAPILLARY [...] [facility] | [address] | [place], [place] | | | [facility] | [address] | [address] | | | TESTS | | | [...] [facility] | [address] | [place], [place] | | | [facility] | [address] | [address] | | | TESTS | | | [...] [facility] | [address] | [place], [place] | | | [facility] | [facility] | [address] | | | TESTS | | | [...] (H) | 70 - 99 mg/dL | [place] - | [...] [facility] | [address] | [place], [place] | | | [facility] | [address] | [address] | | | TESTS | | | [...] [facility] | [address] | [place] | | | [facility] | [address] | [address] | | | TESTS | | | [...] + + | Blood - Blood | | (substance) | + + + + + | Narrative | Performed At | + + + | INR Therapeutic ranges for full anticoagulation: INR for | [facility] | | Venous Thromboembolism (2.0 - 3.0) INR INR for | LABORATORY | | most patients with mech. valves (2.5 - 3.5) INR | PEARL, NAY | + + + + + + + + | Performing | Address | City/State/Zipcode | Phone Number | | Organization | | | | + + + + + | [facility] | [address] | [place] [address] | | | NAY KANG | [address] [...] + + | Blood - Blood | | (substance) | + + + + + | [...] + + + + + | [facility] | [address] | [place] [address] | | | SERVICES, CORE | [address] | | | + + + + + MAGNESIUM, PLASMA (02/17/2018 12:31 AM PDT) + +-------+ + + + | Component | Value | Ref Range | Performed | Pathologist | | | | | At | Signature | + +-------+ + + + | MAGNESIUM,P | 2.1 | 1.6 - 2.6 mg/dL | [facility] | | | [facility] | | | LABORATORY | | | | | | SERVICES, | | | | | | CORE | | + +-------+ + + + + + | Specimen | + + | Blood - Blood | | (substance) | + + + + + | [...] [facility] | [address] | [place] [address] | | | SERVICES, NAY | GENNARO [...] | | | LABORATORY | | | [place] | | | SERVICES, | | | [...] + + | Blood - Blood | | (substance) | + + + + + | [...] Rapidly changing kidney | | | function - Amputees, paraplegics, or other muscle-wasting diseses | | + + + + + + + + | Performing | Address | City/State/Zipcode | Phone Number | | Organization | | | | + + + + + | [facility] | [address] | [place] [address] | | | SERVICES, CORE | GENNARO [...] [facility] | [address] | [place], [place] | | | BABAR TAMEZ OF CARE | [facility] | [address] | | | TESTS | | | [...] (H) | 70 - 99 mg/dL | [facility] - | | | GLUCOSE, [...] ELLIE | [address] | [place], [place] | | | BABAR TAMEZ OF CARE | [address] | [address] | | | TESTS | | | [...] + + + + + + | [facility] | 445 | ms | [facility] [...] DEPT OF | [address] | [place], [place] | | | CARDIOLOGY | [address] | [address] | | + + + + + [...] [facility] | [address] | [place], [place] | | | JOI POINT OF CARE | [address] | [address] | | | TESTS | | | [...] - ELLIE | [address] | [place], [place] | | | JOI POINT OF CARE | [address] | [address] | | | TESTS | | | [...] + + | Blood - Blood | | (substance) | + + + + + | [...] + + + + + | [facility] | [address] [facility] [address] | [place] [address] | | | SERVICES, CORE | [address] [...] + + | Blood - Blood | | (substance) | + + + + + + + | Performing | Address | City/State/Zipcode | Phone Number | | Organization | | | | + + + + + | [facility] | [address] | [place] [address] | | | SERVICES, CORE | [address] | | | + + + + + MAGNESIUM, PLASMA (02/16/2018 12:52 AM PDT) + +-------+ + + + | Component | Value | Ref Range | Performed | Pathologist | | | | | At | Signature | + +-------+ + + + | MAGNESIUM,P | 2.5 | 1.6 - 2.6 mg/dL | [facility] | | | [facility]MA | | | LABORATORY | | | | | | SERVICES, | | | | | | CORE | | + +-------+ + + + + + | Specimen | + + | Blood - Blood | | (substance) | + + + + + | Narrative | Performed At | + + + | Reference range change effective 04/06/17. | [facility] | | | LABORATORY | | | NAY KANG | + + + + + + + + | Performing | Address | City/State/Zipcode | Phone Number | | Organization | | | | + + + + + | [facility] | [address] | [place] [address] | | | NAY KANG | [address] [...] | | | LABORATORY | | | [place] | | | SERVICES, | | | [...] + + | Blood - Blood | | (substance) | + + + + + | [...] Rapidly changing kidney | | | function - Amputees, paraplegics, or other muscle-wasting diseses | | + + + + + + + + | Performing | Address | City/State/Zipcode | Phone Number | | Organization | | | | + + + + + | [facility] | [address] | [place] [address] | | | SERVICES, CORE | [address] [...] + + | Blood - Blood | | (substance) | + + + + + | [...] + + + + + | [facility] | [address] | [place] [address] | | | SERVICES, CORE | GENNARO [...] + + | Blood - Blood | | (substance) | + + + + + | Narrative | Performed At | + + + | Reference Interval: 0-18years: Deficiency: <20 ng/mL | [facility] | | Optimum level: >or=20 ng/mL | LABORATORY | | >18years: Deficiency: <20 | SERVICES, CORE | | ng/mL Insufficiency: 20-29 ng/mL | | | Optimum Level: 30-80 ng/mL High: | | | 81-150 ng/ml Toxic: >150 ng/mL | | + + + + + + + + | Performing | Address | City/State/Zipcode | Phone Number | | Organization | | | | + + + + + | [facility] | [address] | [place] [address] | | | SERVICES, CORE | GENNARO [...] MARYAMILETAM | [address] | [place], [place] | | | BABAR TAMEZ OF CARE | [address] | [address] | | | TESTS | | | [...] + + | Blood - Blood | | (substance) | + + + + + + + | Performing | Address | City/State/Zipcode | Phone Number | | Organization | | | | + + + + + | [facility] | [address] | [place] [address] | | | SERVICES, CORE | [address] [...] + + | Blood - Blood | | (substance) | + + + + + + + | Performing | Address | City/State/Zipcode | Phone Number | | Organization | | | | + + + + + | [facility] | [address] | [place] [address] | | | SERVICES, | [address] [...] + + | Blood - Blood | | (substance) | + + + + + + + | Performing | Address | City/State/Zipcode | Phone Number | | Organization | | | | + + + + + | [facility] | [address] | [place] [address] | | | SERVICES, | [address] [...] - | | | | | | [facility] | | | [...] [facility] | [address] | [place], [place] | | | BABAR TAMEZ OF TIMUR | [address] | [address] | | | TESTS | | | [...] as now presented. Final signature: Pee Medina MD | | | 02/15/2018 4:56 PM Preliminary: Soo oYst MD 02/15/2018 | | | 4:48 PM Dictation initiated: Soo Yost MD 02/15/2018 4:30 | | | PM | | + + + + [...] Yost MD 02/15/2018 4:48 PM Dictation initiated: oSo Yost MD 02/15/2018 | | 4:30 PM [...] are reported relative to the distal normal | | | vessel. FINDINGS: LEFT CAROTID: No aneurysm, dissection, | | | traumatic vascular injury, or hemodynamically significant stenoses. | | | There are scattered calcifications within the cavernous [...] Preliminary: Soo Yost MD 02/15/2018 4:54 PM Dictation | | | initiated: Soo Yost MD 02/15/2018 4:12 PM | | + + + + + | Procedure Note | + + | Service Account, [employer] Res In Interface - 02/15/2018 4:57 PM [...] [facility] | [address] | [place], [place] | | | JOI POINT OF CARE | [address] | [address] | | | TESTS | | | [...] | | | TEMP | | | ELLIE | | | | | | BABAR TAMEZ | | | | | | OF CARE | | | | | | TESTS | | + + + + + + | ISTAT | VENOUS | | [facility] - | | | SAMPLE TYPE | | | [facility] | | | [...] [facility] | [address] | [place], [place] | | | BABAR TAMEZ OF CARE | [address] | [address] | | | TESTS | | | | + + + + + RAINBOW HOLD TUBE - RED TOP (02/15/2018 3:33 PM PDT) + + | Specimen | + + | Blood - Blood | | (substance) | + + + + + + + | Performing | Address | City/State/Zipcode | Phone Number | | Organization | | | | + + + + + | [facility] | [address] | [place] [address] | | | NAY KANG | [address] | | | + + + + + RAINBOW HOLD TUBE - PURPLE TOP (02/15/2018 3:33 PM PDT) + + | Specimen | + + | Blood - Blood | | (substance) | + + + + + + + | Performing | Address | City/State/Zipcode | Phone Number | | Organization | | | | + + + + + | [facility] | [address] | [place] [address] | | | NAY KANG | [address] | | | + + + + + RAINBOW HOLD TUBE - GREEN TOP (02/15/2018 3:33 PM PDT) + + | Specimen | + + | Blood - Blood | | (substance) | + + + + + + + | Performing | Address | City/State/Zipcode | Phone Number | | Organization | | | | + + + + + | [facility] | [address] | [place] [address] | | | SERVICES, CORE | [address] | | | + + + + + RAINBOW HOLD TUBE - BLUE TOP (02/15/2018 3:33 PM PDT) + + | Specimen | + + | Blood - Blood | | (substance) | + + + + + + + | Performing | Address | City/State/Zipcode | Phone Number | | Organization | | | | + + + + + | [facility] | [address] | [place] [address] | | | SERVICES, CORE | [address] [...] SPECIMEN | Sample received with | | AUTUMN | | | COLLECTED, | adeq label/volume to | | LABORATORY | | | HELD | process | | SERVICES, | | | | | | TRANSFUSION | | | | | | MEDICINE | | + + + + + + + + | Specimen | + + | Blood - Blood | | (substance) | + + + + + + + | Performing | Address | City/State/Zipcode | Phone Number | | Organization | | | | + + + + + | [facility] | [address] | [place] [address] | | | SERVICES, | [address] [...] + + | Blood - Blood | | (substance) | + + + + + | Narrative | Performed At | + + + | New reference ranges for MCV, MCHC, PLT, IG% and IG# effective | [facility] | | 12/30/2017 Must be ordered if Coagulopathy Panel is ordered | LABORATORY | | | SERVICES, CORE | + + + + + + + + | Performing | Address | City/State/Zipcode | Phone Number | | Organization | | | | + + + + + | [facility] | [address] | [place] [address] | | | SERVICES, CORE | PARK [...] | | | LABORATORY | | | [place] | | | SERVICES, | | | [...] + + | Blood - Blood | | (substance) | + + + + + | Narrative | Performed At | + + + | GFR is estimated using the MDRD equation recommended by the | [facility] | | National Kidney Disease [...] Rapidly changing kidney | | | function - Amputees, paraplegics, or other muscle-wasting diseses | | + + + + + + + + | Performing | Address | City/State/Zipcode | Phone Number | | Organization | | | | + + + + + | [facility] | [address] | [place] [address] | | | PEARL, NAY | [address] [...] + + | Blood - Blood | | (substance) | + + + + + | [...] [facility] | [address] | [place] [address] | | | NAY KANG | [address] [...] | | | CITRATED | | | [facility] | | | [...] | | | INHIBITION | | | [facility] | | | (ADP) | | | BABAR T[facility]Z | | | | | | OF CARE | | | | | | TESTS | | + + + + + + + + | Specimen | + + | Blood - Blood | | (substance) | + + + + + | Impressions | Performed At | + + + | A standard citrated kaolin TEG with platelet mapping was performed | [facility] - | | R time is normal. Elevated ALPHA angle corresponds to increased | [facility], | | rate of fibrin crosslinking suggesting [...] + + + | [facility] | [address] | [place], [place] | | | JOI POINT OF CARE | [facility] | [address] | | | TESTS | | | [...] PDT | | | | | dose (after last modification) on | | | | | | | Nusrat 02/17/18 at 0900, Until | | | | [...] g, oral, NEEDED, Starting | | | Wed02/15/18 at 1753, Until Wed | | | [...] PDT | | | | | dose (after last modification) on | | | | | | | 02/18/18 at 2200, Until | | | | [...] | | | WITH MEALS, First dose (after | | | | | | | last modification) on 02/19/18 | | | | | | | at 1200, Until Discontinued | | | | | [...] AM PDT | | | | | 02/15/18 at 1752, Until Wed | | | [...] Units | | Site | | Starting 02/18/18 at 0932, | | AM PDT | | | | | Until Wed02/18/18 at 1236 | | | | | | + +-------+ +--------+---+ + +---+---+ | | | +---+---+ documented in this encounter
--- OUTSIDE RECORDS SUMMARY | ~2019-08-03 | XMS | Encounter Summary ---
Demographics + + + | Address | [address] | | | [place] [address] | + + + | Home Phone | | + + + | Preferred Language | Unknown | + + + | Marital Status | Single | + + + | Adventism Affiliation | 1041 | + + + | Race | Unknown | + + + | Ethnic Group | Unknown | + + + Author + + + | Author | [facility] | | | and Zekeana | + + + | Organization | [facility] | | | and [...] Providers + +------+ + | Care Vp Lab Name | Role | Phone | + +------+ + PCP | Unavailable | + +------+ + Encounter Details +--------+ + + + + | Date | Type | Department | Care Team | Description | +--------+ + + + + | 08/26/ | Hospital | [facility] | Conversion | Status post cervical | | 2017 | Encounter | [facility] | Transaction, | spinal arthrodesis | | | | [address] | Provider Unknown | | | | | [address] [place], [place] | [phone] | | | | | [address] | | | | | | [phone] | Leonardo Werner, | | | | | | STATISTICAL METHODS TEACHER [address] [place] [address] | | | | | | [address] [place], | | | | | | [place] [address] | | | | | | [phone] | | | | | | | [...] | | | | | [place] [address] | | | | | | [phone] | | | | | | | | +--------+---------+ + + + | 11/26/ | Office | Cardiology | Sissy Noyola | | | 2019 | Visit | | MD Marisol [address] | | | | | | [place] | | | | | | [address] | | | | | | | [...] 04/05/2019 4:06 AM PDT JORGE L Hodge [id number] years MaleXR | | CERVICAL SPINE LIMITED [...]
--- OUTSIDE RECORDS SUMMARY | ~2019-08-03 | XMS | Encounter Summary ---
Demographics + + + | Address | [address] | | | [place] [address] | + + + | Home Phone [...] Team Providers + +------+ + | Care Cloth Shearer Name | Role | Phone | + [...] Rd | | | | | | [place], [place] | | | | | | [address] | | | +--------+ + + + [...]
--- OUTSIDE RECORDS SUMMARY | ~2019-08-03 | XMS | Encounter Summary ---
Demographics + + + | Address | [address] | | | [place] [address] | + + + | Home Phone [...] Team Providers + +------+ + | Care Lead Project Manager Name | Role | Phone [...] | | | [address] | [place] [address] | | | | | [address] | [phone] | | | | | Mailcode: [id number] | | | | | | Bianca [place] | | | | | | [address] [place], [place] | | | | | | [address] | | | | | | [phone] | | | +--------+ + + + [...]
--- OUTSIDE RECORDS SUMMARY | ~2019-08-03 | XMS | Encounter Summary ---
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
--- OUTSIDE RECORDS SUMMARY | ~2019-08-03 | XMS | Encounter Summary ---
Demographics + + + | Address | [address] | | | [place] [address] | + + + | Home Phone [...] + + + | Author | [facility] | | | and [place]ke[place] | + + + | Organization | [facility] | | | and [place] [...] Team Providers + +------+ + | Care Telemarketing Representative Name | Role | Phone | [...] | | | | [place] | [phone] | | | | | [address] | (Fax) | | | | | [phone] | | | +--------+ + + + [...] | | | | | [place] [address] | | | | | | [phone] | | | | | | | | +--------+---------+ + + + | 11/26/ | Office | Cardiology | Sissy Noyola | | | 2020 | Visit | | MD Sushil Damon | | | | | | [place] | | | | | | [address] | | | | | | | | +--------+---------+ + + + documented as of this encounter Visit Diagnoses Not on filedocumented in this encounter"
--- OUTSIDE RECORDS SUMMARY | ~2019-08-03 | XMS | Encounter Summary ---
Demographics + + + | Address | [address] | | | [place] [address] | + + + | Home Phone [...] + +------+ + | Care In Store Marketer Name | Role | Phone | + [...] | | | | | is, | [facility] | [address] | | | | | unspecified | & Fractur | [address] [place], | | | | | whether | [address] | [place] | | | | | generalized | [address] | [address] | | | | | or | [place], | Phone: | | | | | localized, | [place] [address] | [phone] | | | | | pelvic | Phone: | Fax: | | | | | region and | [phone] | [phone] | | | | | thigh | Fax: | | | | | | Procedures | [phone] | | | | | | REQUEST TO | | | | | | | SURGERY | | | | | | | PROMOTIONS FIRM ACCOUNTS MANAGER | | | | | | | MI TOTAL HIP | | | | | | | | | | | | | | ARTHROPLASTY | | | | | | | MI | | | | | | | [...] | | 2013 | Visit | [facility] [address] | [address] | (Primary Dx); | | | | [address] | [address] | 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 I reviewed the resident s note and agree with the documented findings and plan of care. JORGE SMART MD ORTHOPAEDICS AT [facility] [address] [facility] Mailcode: [id number] [place] [address] Ino Andrews Md 04/26/2014 10:18 AM PDTJorge L Cisneros is a 63 y.o. male 6 weeks status post right SUSHIL. He is p rogressing well. He is weight-bearing as tolerated with walker. He is weaning down his morp ortega. Very happy with outcome. States he had a stitch abscess that he popped and has resolve d. On coumadin chronically. PHYSICAL EXAM:Temp (Src) 37.2 [...] to [place] [id number] documented in this enc ounter Plan of [...]
--- OUTSIDE RECORDS SUMMARY | ~2019-08-03 | XMS | Encounter Summary ---
Demographics + + + | Address | [address] | | | [place] [address] | + + + | Home Phone [...] Providers + +------+ + | Care Environmental Remediation Engineer Name | Role | Phone | [...] | | | | | [address] | | | | | | Loop Mailcode: | | | | | | PV450 Physician's | | | | | | [place], | | | | | | [place] [address] | | | | | | [phone] | | | +--------+ + + + [...] | | | ana laura / Jakob Snider | | | | | | 08/11/2012 16:07 PM | | | | + + + + + + + + | Specimen | + + | | + + + +---------+ + + | Performing | Address | City/State/Zipcode | Phone Number | | Organization | | | | + +---------+ + + | [facility] | | | | | [...]
--- OUTSIDE RECORDS SUMMARY | ~2019-08-03 | XMS | Encounter Summary ---
Demographics + + + | Address | [address] | | | [place] [address] | + + + | Home Phone [...] Author + + + | Author | [facility] | + + + | Organization | [facility] | + + + | Address [...] Team Providers + +------+ + | Care Server Engineer Name | Role | Phone | [...] | | | is, hip Hip | [facility] | [address] | | | | | pain, | & Fractur | [address] [place], | | | | | bilateral | [address] | [place] | | | | | Ankylosing | [address] | [address] | | | | | spondylitis | [place], | Phone: | | | | | ([facility]) | [place] [address] | [phone] | | | | | Procedures | Phone: | Fax: | | | | | REQUEST TO | [phone] | [phone] | | | | | SURGERY | Fax: | | | | | | ARCHITECTURE CONSULTANT | [phone] | | | | | | DE TOTAL HIP | | | | | [...] Enc-IP | [facility] [address] | [address] [facility] | | | | | [address] | [address] | | | | | Mailcode: [id number] | [place], [place] | | | | | [facility] | [address] | | | | | [place], [place] | [phone] | | | | | [address] | | | | | | [phone] | | | +--------+ + + + [...]
--- OUTSIDE RECORDS SUMMARY | ~2019-08-03 | XMS | Encounter Summary ---
Demographics + + + | Address | [address] | | | [place] [address] | + + + | Home Phone [...] | Organization | [facility] | | | and [place] | [...] Team Providers + +------+ + | Care Straight Cutter Machine Name | Role | Phone [...] [place] | | | | | | [address] | (Fax) | | | | | [...] | | | | | [place] [address] | | | | | | [phone] | | | | | | | | +--------+---------+ + + + | 11/26/ | Office | Cardiology | Sissy Noyola | | | 2019 | Visit | | MD Marisol [address] | | | | | | [place] | | | | | | [address] | | | | | | | | +--------+---------+ + + + documented as of this encounter Visit Diagnoses + + | Diagnosis | + + | Diagnosis unknown Other unknown and unspecified cause of morbidity or mortality | + + documented in this encounter"
--- OUTSIDE RECORDS SUMMARY | ~2019-08-03 | XMS | Encounter Summary ---
Demographics + + + | Address | [address] | | | [place] [address] | + + + | Home Phone | | + + + | Preferred Language | Unknown | + + + | Marital Status | Single | + + + | Uatsdin Affiliation | 1041 | + + + | Race | Unknown | + + + | Ethnic Group | Unknown | + + + Author + + + | Author | [facility] | | | and [place] | + + + | Organization | [facility] | | | and [place] [...] Team Providers + +------+ + | Care Railway Engineer Name | Role | Phone | + +------+ + | Scooby Mcclure DO | PCP | | + +------+ + Encounter Details +--------+ + + + + | Date | Type | Department | Care Team | Description | +--------+ + + + + | 01/22/ | Orders Only | [facility] | Jimi Mauricio | | | 2017 | | CONVERSION DEP [address] | MD [address] | | | | | [address] | [facility] | | | | | [place], [place] | [place] [address] | | | | | [address] | [phone] | | | | | [phone] | | | +--------+ + + + [...] | | | | | [place] [address] | | | | | | [phone] | | | | | | | | +--------+---------+ + + + | 11/26/ | Office | Cardiology | Sissy Noyola | | | 2020 | Visit | | MD Sushil Damon | | | | | | [place] | | | | | | [address] | | | | | | | | +--------+---------+ + + + documented as of this encounter Visit Diagnoses Not on filedocumented in this encounter"
--- OUTSIDE RECORDS SUMMARY | ~2019-08-03 | XMS | Encounter Summary ---
Demographics + + + | Address | [address] | | | [place] [address] | + + + | Home Phone [...] Team Providers + +------+ + | Care Lute Packer Or Applier Name | Role | Phone | + [...] | | examination; | | | | [facility] | | Ankylosing | | | | [address] [place], [place] | | spondylitis ([facility]); | | | | [address] | | Localized | | | | [phone] | | osteoarthrosis not | | | [...] or walk. Surgery Check in Locations Admitting [facility], [facility] Surgery Check in Time: The OR (Operating Room) schedule is not finalized until the day before surgery. Someone from the OR (Operating Room) scheduling office at [facility] will call armen perez with information regarding check in time for your surgery. If you have questions about th is, please call [phone] Going Home Your surgical team will decide [...] it is after office hours, call the [facility] bale tie machine operator at [phone] and ask them to page your doc [...] surgery a couple of years ago at [facility] and it was canceled for "dental [...] and PMHX. Document will be scanned in [employer]. Current Medication List Name Sig CHOLECALCIFEROL (VITAMIN [...] kg/(m^2) Body mass index is 44.46 kg/(m^2). [facility] ROS Last edited 05/03/122002 by ALFREDITO Mata,MPH [...] an echocardiogram ~7-8 years ago, possibly at [place] in [facility], he reports it was found to be [...] surgery a couple of years ago at [facility] and it was canceled for "dental issues." Per patient he had the dental problems taken care of a couple of years ago and he denies dental problems or pain. Within Defined Limits except as noted below arthritis Heme/Onc: Per patient DVT was in the left lower leg in August 2009. Per his friend, John Hyatt, and additional records in [facility] it was the right leg that had a DVT. The patient reports that he developed the blood clot after a long ride from [place] back to [place] after his previous hip surgery was canceled. [...] I sent him an inbox message in [employer] with the results of the patient's INR [...] further investigation and manageme nt. A. Acute MN within 7 days: no B. Unstable angina/Recent MN (7- 30 days): no C. Decompensated CHF: [...] yes Rate of cardiac , non fatal MN, non fatal cardiac arrest (RCRI) 0 risk factors - 0.4% 1 risk factors - 1%, 2 risk factors - 7%, 3 or >risk factors - 11% (may benefit from perioperative beta blockers) Risk Factor Recommendations: 1-2 risk factors- proceed with planned surgery with HR control or consider noninvasive testing if it will regional climate change analyst. Surgery Risk: Unavailable Patient-related risk: Estimated ASA [...] friend, John Hyatt, and additional records in [facility] it was the right leg that had a DVT. The patient reports that he developed the blood clot after a long ride from [place] back to [place] after his previou s hip surgery was [...] contribute to this patient's care. ALFREDITO LARSEN,MPH [facility] [address] [place] [id number] signed by ALFREDITO Mata,MPH at 05/03/2012 8:13 [...] [facility] | [address] | [place], [place] | | | [facility] | [address] | [address] | | | TESTS | | | [...] view image for the detailed interpretation from [facility] results. | CARDIOLOGY | + + + + + + + + | Performing | Address | City/State/Zipcode | Phone Number | | Organization | | | | + + + + + | [facility] | [address] | [place], [place] | | | CARDIOLOGY | [address] | [address] | | + + + + + [...] ([facility]) | [facility] | | [facility] [place] [address] | REGIONAL | | [place] [address] | LABORATORY | + + + + + + + + | Performing | Address | City/State/Zipcode | Phone Number | | Organization | | | | + + + + + | [facility] | [address] | [place] [address] | | | LABORATORY | | | [...] | + + + + + | [facility] DEPARTMENT | [address] | [place] [address] | | | PATHOLOGY | [address] [...] | + + + + + | [facility] | [address] | [place] [address] | | | LAB-MICRO | | | [...] [facility] | [address] | [place] [address] | | | PATHOLOGY | [address] [...] | + + + + + | [facility] DEPARTMENT | [address] | [place] [address] | | | PATHOLOGY | [address] [...] [facility] | [address] | [place] [address] | | | PATHOLOGY | [address] [...] | | | DEPARTMENT | | | [facility] | | | OF | | | [...] [facility] | [address] | [place] [address] | | | PATHOLOGY | [address] [...]
--- OUTSIDE RECORDS SUMMARY | ~2019-08-03 | XMS | Clinical Summary ---
Demographics + + + | Address | [address] | | | [place] [address] | + + + | Home Phone | | + + + | Preferred Language | Unknown | + + + | Marital Status | Single | + + + | Caodaism Affiliation | 1041 | + + + | Race | Unknown | + + + | Ethnic Group | Unknown | + + + Author + + + | Author | [facility] | | | and [place] | + + + | Organization | [facility] | | | and [place] [...] Providers + +------+ + | Care Medical Billing Specialist Name | Role | Phone | + +------+ + | Scooby Mcclure DO | PCP | | + +------+ + Allergies + [...] | Diarrhea | Medium | 01/07/20 | Diarrhea | | | | | 17 | [...] | | + + + +---------+------+------+-------+ | atorvaSTATin | Take 1 tablet by | 90 | 3 | 02/20 | 02/20 | Activ | | (LIPITOR) 40 mg | mouth nightly. | tablet | | 01/09 | 12/10 | e | | tablet | | | | 19 | 20 | | + + + +---------+------+------+-------+ | donepezil | Take 1 tablet by | 40 | 0 | 02/22 | 02/22 | Activ | | (ARICEPT) 5 mg | mouth nightly. ONE | tablet | | 1/20 | 0/20 | e | | tablet | TIME urgent refill | | | 19 | 20 | | | | to cover for DrKerrie | | | | | | | | Kathy. | | | | | | + + + +---------+------+------+-------+ +---+ + | | Additional | | | informationPatient | | | not taking. Reported | | | on 05/25/2019 2:03 | | | PM | +---+ + + + +--------+---+------+------+-------+ | B COMPLEX-C PO | Take by mouth. | | 0 | 07/0 | | Activ | | | | | | 1/20 | | e | | | | | | 19 | | | + + +--------+---+------+------+-------+ | allopurinol | Take 100 mg by mouth | | 0 | 051 | | Activ | | (ZYLOPRIM) 100 mg | daily. | | | 04/11 | | e | | tablet | | | | 17 | | | + + +--------+---+------+------+-------+ | Cholecalciferol | Take 1 tablet by | | 0 | 05 | | Activ | | (VITAMIN D-3) 2000 | mouth. | | | 04/11 | | e | | units CAPS | | | | 17 | | | + + +--------+---+------+------+-------+ | folic acid 1 mg | Take 1 mg by mouth | | 0 | 12/21 | | Activ | | tablet | daily. Indications: | | | 04/11 | | e | | | 0.5 tab by mouth q | | | 17 | | | | | day | | | | | | + + +--------+---+------+------+-------+ | insulin glargine | Inject into the | | 0 | 1 | | Activ | | (LANTUS SOLOSTAR) | skin nightly. | | | 04/11 | | e | | 100 units/mL | Indications: Inject | | | 17 | | | | injection (pen) | 65 units under the | | | | | | | | skin at bedtime for | | | | | | | | diabetes | | | | | | + + +--------+---+------+------+-------+ | | Take 25 mg by mouth | | 0 | 05/1 | | Activ | | hydroCHLOROthiazide | daily. Indications: | | | 820 | | e | | 25 mg tablet | take 1 tab by mouth | | | 17 | | | | | q morning for HBP | | | | | | + + +--------+---+------+------+-------+ | insulin aspart | Inject into the | | 0 | 05 | | Activ | | (NOVOLOG FLEXPEN) | skin 3 (three) times | | | 04/11 | | e | | 100 units/mL | daily before meals. | | | 17 | | | | injection pen | Indications: Inject | | | | | | | | 25 units under the | | | | | | | | skin before meals | | | | | | | | (2-3 x per day) | | | | | | + + +--------+---+------+------+-------+ | levothyroxine | Take 50 mcg by mouth | | 0 | 05/1 | | Activ | | (SYNTHROID) 50 mcg | every morning | | | 8/20 | | e | | tablet | before breakfast. | | | 17 | | | | | Indications: Take 1 | | | | | | | | tab by mouth q day | | | | | | | | except take 1 and | | | | | | | | 1.5 tab twice | | | | | | | | weekly. | | | | | | + + +--------+---+------+------+-------+ | morphine (MSIR) 15 | Take 15 mg by mouth | | 0 | 05/1 | | Activ | | mg tablet | every 4 (four) hours | | | 8/20 | | e | | | as needed for Pain. | | | 17 | | | | | Indications: Take 1 | | | | | | | | tab by mouth q 12 | | | | | | | | hrs if needed for | | | | | | | | pain | | | | | | + + +--------+---+------+------+-------+ | morphine (ROXANOL) | Take 60 mg by mouth | | 0 | 05/1 | | Activ | | 20 mg/mL | every 2 (two) hours | | | 8/20 | | e | | concentrated liquid | as needed for Pain. | | | 17 | | | | | Indications: Take 1 | | | | | | | | tab by mouth q 12 | | | | | | | | hrs if needed for | | | | | | | | pain | | | | | | + + +--------+---+------+------+-------+ | Multiple | Take 1 tablet by | | 0 | 05/1 | | Activ | | Vitamins-Minerals | mouth daily. | | | 8/20 | | e | | (MULTIVITAMIN WITH | Indications: Take 1 | | | 17 | | | | MINERALS) tablet | tab q day | | | | | | + + +--------+---+------+------+-------+ | acetaminophen | Take 1 tablet by | | 0 | 07/0 | | Activ | | (TYLENOL) 500 mg | mouth every 8 | | | 3/20 | | e | | tablet | (eight) hours as | | | 18 | | | | | needed. | | | | | | + + +--------+---+------+------+-------+ | HYDROmorphone | Take 1 tablet by | | 0 | 07/0 | | Activ | | (DILAUDID) 2 mg | mouth daily as | | | 3/20 | | e | | tablet | needed. | | | 18 | | | + + +--------+---+------+------+-------+ | rivaroxaban | Take 1 tablet by | | 0 | 07/2 | | Activ | | (XARELTO) 20 mg | mouth daily. | | | 6/20 | | e | | tablet | | | | 18 | | | + + +--------+---+------+------+-------+ | aspirin 81 MG | Take 81 mg by mouth | | 0 | 07/0 | | Activ | | tablet | daily. | | | 09/11 | | e | | | | | | 19 | | | + + +--------+---+------+------+-------+ | MANUAL SELECTION | once daily. 3 grams | | 0 | 07 | | Activ | | NEEDED - medical | per day | | | 05/12 | | e | | marijuana | | | | 18 | | | + + +--------+---+------+------+-------+ | metoprolol | Take 0.5 tablets by | 90 | 1 | 04/24 | 04/24 | Activ | | tartrate (LOPRESSOR) | mouth 2 times daily. | tablet | | 03/11 | 02/09 | e | | 25 mg tablet | | | | 19 | 20 | | + + +--------+---+------+------+-------+ Active Problems + + + | Problem | Noted Date | + + + | Aortic valve regurgitation, nonrheumatic | 05/25/2019 | + + + | Coronary artery disease involving [place] coronary artery of | 02/20/2019 | | [place] heart without angina pectoris | | + + + | Essential hypertension | 02/20/2019 | + + + | Difficult intubation | 02/20/2019 | + + + + + | Overview: Overview: | | glidescope used for intubation | + + + + + | Driving safety issue | 11/09/2018 | + + + | Exercise counseling | 11/09/2018 | + + + | Essential hypertension | 11/09/2018 | + + + | Moderate dementia without behavioral disturbance | 05/05/2018 | + + + | Memory loss | 03/10/2018 | + + + | Hypertension goal BP (blood pressure) < 140/80 | 03/10/2018 | + + + | Closed displaced fracture of second cervical vertebra | 02/15/2018 [...] Closed nondisplaced fracture of seventh cervical vertebra | 01/07/2017 | + + + | Maxillary fracture, left side, initial encounter for open | 01/07/2017 | | fracture | | + + + | Antiphospholipid syndrome | 01/07/2017 | + + + | Controlled type 2 diabetes mellitus with hyperglycemia | 01/07/2017 | + + + | [...] | + + + | Ankylosing spondylitis | 05/23/2009 | + + + | Osteoarthrosis, hip | 05/23/2009 | + + + + + | Overview: Overview: | | Right hip | + + Resolved Problems + + + + | Problem | Noted | Resolved | | | Date | Date | + + + + | Exertional chest pain | 02/21/20 | | | | 19 | 9 | + + + + Encounters +--------+---------+ + + + | Date | Type | Specialty | Care Team | Description | +--------+---------+ + + + | 05/25/ | Office | Cardiology | Sissy Noyola | Coronary artery | | 2019 | Visit | | MD Marisol | disease involving | | | | | | [place] coronary | | | | | | artery of [place] | | | | | | heart without angina | | | | | | pectoris (Primary | | | | | | Dx); Essential | | | | | | hypertension; Aortic | | | | | | valve | | | | | | regurgitation, | | | | | | nonrheumatic; | | | | | | Syncope and collapse | +--------+---------+ + + + | 05/18/ | Refill | Cardiology | Sissy Noyola | Medication Refill | | 2018 | | | MD Marisol | | +--------+---------+ + + + | 05/16/ | Refill | Cardiology | Sissy Noyola | Medication Refill | | 2018 | | | O MD | | +--------+---------+ + + + from Last 3 Months Immunizations + + + + | Name | Administration Dates | Next Due | + + + + | PPD Test | 05/18/2013, 05/16/2013 | | + + + + Family History + +------+ + [...] | | | | | [place] [address] | | | | | | [phone] | | | | | | | | +--------+---------+ + + + | 11/26/ | Office | Cardiology | Sissy Noyola | | | 2020 | Visit | | MD Marisol [address] | | | | | | [place] | | | | | | [address] | | | | | | | | +--------+---------+ + + + + + + + + | Health Maintenance | Due Date | Last Done | Comments | + + + + + | Hepatitis C | | | | | Screening | 1 | | | + + + + + | Diabetic Eye Exam | | | | | | 9 | | | + + + + + | Diabetic Foot Exam | | | | | | 9 | | | + + + + + | Colorectal Cancer | | | | | Screening | 1 | | | | (Colonoscopy) | | | | + + + + + | Vaccine: Zoster (1 | | | | | of 2) | 1 | | | + + + + + | Vaccine: | | | | | Pneumococcal 65+ (1 | 6 | | | | of 2 - PCV13) | | | | + + + + + | Hemoglobin A1c | | 01/10/2017 | | | Screening | 7 | | | + + + + + | Adult Annual | | | | | Wellness Visit | 9 | | | + + + + + | Microalbumin | | | | | Screening | 9 | | | + + + + + | Vaccine: Influenza | | | | | (#1) | 9 | | | + + + + + | Vaccine: | | 01/12/2018, 02/27/2002 | | | Dtap/Tdap/Td (2 - | 8 | | | | Td) | | | | + + + + + Implants + +------+------+ +--------+--------+--------+ | Implanted | Type | Area | Manufacture | Device | Shelf | Model | | | | | r | | Expira | / | | | | | | Identi | tion | Serial | | | | | | fier | Date | / Lot | + +------+------+ +--------+--------+--------+ | Putty Bone Pls Xemplifi 10cc | | | GLOBUS | | 10/22/ | 8103.0 | | - [id number]: Qty: 1 | | | MEDICAL - | | 2019 | 210S / | | on 01/09/2017 by Kadi, | | | GLBU | | | | | [place] | | | | | | /[id number] | | | | | | | | [id number] | + +------+------+ +--------+--------+--------+ | Quartex Lordotic 4.0 | | | GLOBUS | | | 1149.7 | | RodImplanted: Qty: 1 on | | | MEDICAL - | | | 620 / | | 01/09/2017 by Kadi, | | | GLBU | | | / | | Mendez Nicole MD | | | | | | | + +------+------+ +--------+--------+--------+ | Quartex Lordotic Zacarias 4.0mm X | | | GLOBUS | | | 1149.7 | | 110mmImplanted: Qty: 1 on | | | MEDICAL - | | | 610 / | | 01/09/2017 by Kadi, | | | GLBU | | | / | | Mendez Nicole MD | | | | | | | + +------+------+ +--------+--------+--------+ | Algrft Strp Bioactv | | | GLOBUS | | | 8115.0 | | [id number] - SnaImplanted: | | | MEDICAL - [...] | | 10/05/ | 8115.0 | | [id number] - | | | MEDICAL - | | 2019 | 120S / | | [id number]: Qty: 1 on | | | GLBU | | | | | 01/09/2017 by Kadi, | | | | | | /[id number] | | Mendez Nicole MD | | | | | | 4CG | + +------+------+ +--------+--------+--------+ | Graft Duragen 1x1in - | | | INTEGRA | | / | ID-110 | | [id number]: Qty: 1 on | | | LIFESCIENCE | | 2020 | 1 / | | 01/09/2017 by Kadi, | | | S YOLANDA - | | | /[id number] | | Mendez Nicole MD | | [...] Qty: 2 on | | | MEDICAL - | | | 020 / | | 01/09/2017 by Kadi, | | | GLBU | | | / | | Mendez Nicole MD | | | | | | | + +------+------+ +--------+--------+--------+ | Quartex 5.0 Polyaxial Screw, | | | GLOBUS | | | 1149.5 | | 26mmImplanted: Qty: 2 on | | | MEDICAL - | | | 026 / | | 01/09/2017 by Kadi, | | | GLBU | | | / | | Mendez Nicole MD | | | | | | | + +------+------+ +--------+--------+--------+ | Quartex 5.0 Polyaxial Screw, | | | GLOBUS | | | 1149.5 | | 20mmImplanted: Qty: 2 on | | | MEDICAL - | | | 020 / | | [...] | Date | / Lot | + +------+------+ +--------+--------+--------+ | Cap Yasmany Thrd - Sna | | | GLOBUS | | | 1149.0 | | | | | MEDICAL - | | | 001 / | | | | | GLBU | | | / | + +------+------+ +--------+--------+--------+ Results Not on filefrom Last 3 Months Insurance + +--------+ +--------+ +---------+--------+ | Payer | Benefi | Subscriber | Effect | Phone | Address | Type | | | t Plan | ID | larry | | | | | | / | | Dates | | | | | | Group | | | | | | + +--------+ +--------+ +---------+--------+ | MEDICARE | MEDICA | [id number] | 10/22/19 | [phone] | | Medica | | | RE | | 16-Pre | 5 | | re | | | PART A | | sent | | | | | | AND B | | | | | | + +--------+ +--------+ +---------+--------+ | MEDICARE | MEDICA | [id number] | 10/22/19 | [phone] | | Medica | | | RE | | 16-Pre | 5 | | re | | | PART A | | sent | | | | | | AND B | | | | | | + +--------+ +--------+ +---------+--------+ | [employer] | IHS | [id number] | | | | Indemn | | SERVICE | YELLOW | | 019-Pr | | | ity | | | HAWK | | esent | | | | + +--------+ +--------+ +---------+--------+ | [place]ID [place] | MEDICA | [id number] | | [phone] | | Medica | | | ID [place] | | 019-Pr | 2 | | id | | | PLUS | | esent | | | | + +--------+ +--------+ +---------+--------+ | [employer] | IHS | [id number] | | | | Indemn | | SERVICE | YELLOW | | 017-Pr | | | ity | | | HAWK | | esent | | | | + +--------+ +--------+ +---------+--------+ + +--------+ +--------+ + + | Guarantor Name | Accoun | Relation to | Date | Phone | Billing Address | | | t Type | Patient | of | | | | | | | | | | + +--------+ +--------+ + + | Jorge L Cisneros | Person | Self [birth year] | [address] | | | al/Fam | | 1951 | [phone] | [place] [address] | | | blaire | | | 4 (Home) | | + +--------+ +--------+ + + | Jorge L Cisneros | Person | Self [birth year] | [address] | | | al/Fam | | 1951 | [phone] | [place] [address] | | | blaire | | | 4 (Home) | | + +--------+ +--------+ + + Advance Directives + + + + + | Type | Date Recorded | Patient | Explanation | | | | Application Support Engineer | | + + + + + | Power of | | | | | Meal Cooker | | | | + + + + + | Advance | | | | | Directive | | | | + + + + +
--- OUTSIDE RECORDS SUMMARY | ~2019-08-03 | XMS | Encounter Summary ---
Demographics + + + | Address | [address] | | | [place] [address] | + + + | Home Phone [...] Team Providers + +------+ + | Care Gold Layer Name | Role | Phone | + [...] | | | | | capsulitis | [address] [facility] | | | | | | of right | [address] | | | | | | shoulder | Rd | | | | | | Procedures | [place], [place] | | | | | | PHYSICAL | [address] | | | | | | THERAPY | Phone: | | | | | | REFERRAL | [phone] | | | | | | | Fax: | | | | | | | [phone] | | +--------+--------+ + + + + Reason for Visit + + + | Reason | Comments | + + + | New Patient Visit | Right shoulder arthritis | + + + Intake Referral (Routine) +--------+--------+ + + + + | Status | Reason | Specialty | Diagnoses / | Referred By | Referred To | | | | | Procedures | Contact | Contact | +--------+--------+ + + + + | Closed | | Orthopedics | Diagnoses | Paola, | Kamila, | | | | | Right | Melina Hoyos, | MD Leroy | | | | | Shoulder | PA-C | [address] | | | | | Pain | [place] | [place] | | | | | | [place] | [address] [place], | | | | | | Health | [place] | | | | | | [place] [address] | [address] | | | | | | | Phone: | | | | | | [place] | [phone] | | | | | | Way [address] | Fax: | | | | | | [address] | [phone] | | | | | | [place], | | | | | | | [place] [address] | | | | | | | Phone: | | | | | | | [phone] | | | | | | | Fax: | | | | | | | [phone] | | +--------+--------+ + + + + Encounter Details +--------+---------+ + + + | Date | Type | Department | Care Team | Description | +--------+---------+ + + + | 01/31/ | Office | Orthopaedics at | Leroy Treviño MD | Shoulder arthritis | | 2018 | Visit | [address] | [address] | (Primary Dx); | | | | Ave Mailcode: CH12A | [place] | Adhesive capsulitis | | | | [place] [facility] | [place], [place] | of right shoulder | | | | and Healing, | [address] | | | | | Building | [phone] | | | | | Floor [place], [place] | | | | | | [address] | | | | | | [phone] | | | +--------+---------+ + + + [...] type II 2007 Diabetes mellitus with nephropathy (HCC) Per outside records (10/09/2009) in media. 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 Leroy Treviño MD, [facility](C) Environmental Protection Officer Department of Orthopaedics and Rehabilitation [facility] documented in this encounter Plan of Treatment [...] Preliminary: Myrtle Metz MD Dictation initiated: Myrtle | | | MD Isaías 01/31/2018 10:53 AM | | + + [...]
--- OUTSIDE RECORDS SUMMARY | ~2019-08-03 | XMS | Encounter Summary ---
Demographics + + + | Address | [address] | | | [place] [address] | + + + | Home Phone [...] Team Providers + +------+ + | Care Cigar Packer And Sorter Name | Role | Phone [...] OCCIPUT C1 | | | | Rd [facility] | [facility] [place] | LAMINECTOMY | | | | Hospital Admitting | [address] | | | | | Desk Located on the | [phone] | | | | | 9th floor | | | | | | [place], [place] | | | | | | [address] | | | +--------+---------+ + + + [...] be expected to seek care from your [facility] care provider. If you do not have [...] able to renew opioid prescriptions in a jwov-ad-ryyh clinic visit. Our clinic sees patients on [...] week. Specialty: Family Medicine Why: follow up [facility] Contact information [facility] [address] [place] [address] Trauma Center at [facility]. Specialty: Trauma Center Why: As needed Contact information [facility] [facility] Mailcode: L223a [facility] [address] [facility] [address] Additional information: The [facility] is the building just past [facility]. Turn ri ght immediately past the Pavilion. The entrance to garage B will be on your right just beyon d the main doors to the Pavilion. An elevator in the parking garage will take patients direc tly to the floor of the clinic. The Trauma Clinic is located on the 2nd floor, [address]. Pl ease check in at the front end web developer. Maps and directions can be found at [email or web address] Vitals on discharge: Ht [...] I saw and examined Jose Rafael Cisneros ([id number]) with the residents on 02/22/2018 and agree with the assessment and plan as outlined in this discharge summary. Familia Early MD Laminated Plastics Assembler And Gluer Trauma, Critical Care & Acute Care Surgery [...] doctor if you can take an o umw-bnx-wtbgyob medicine. Follow your doctor's directions for returning [...] "Broken Neck: Care Instructions", log into your [employer] account at [email or web address] :[email or web address]. You can enter U000 in the "[employer]" search box. Not on [employer]? Review the [employer] section of your After Visit Summary for directions on ho w to sign up. Current as of: November 10, 2016 Content Version: [id number] [employer]. Care instructions adapted under license by [facility] [employer] & [facility]. If you have questions about a medical condition or this instr uction, always ask your healthcare professional. [employer] disclaims any lakhwinder anty or liability for your use of this information. AttachmentsThe following attachments cannot be sent through Care Everywhere.Cervical Spinal Fusion: Post-op (Austrian)DVT (Deep Vein Thrombosis) (Austrian)documented in this encounter Medications at Time of [...] off at this time FABIENNE PAIGE PA-C [facility] [address] [place] [address] Tino Swanson MD - 02/21/2018 11:51 AM [...] awaiting PT/OT. Tino Cortez MD [facility] [place] [address] [facility] [address] Associated attestation - Familia Early MD - 02/22/2018 10:10 AM PDTAttending: I saw and examined Jose Rafael Cisneros ([id number]) with the residents on 02/21/2018 and agree with the assessment and plan as outlined in this note and participated in the planning of care. Familia Early MD [employer] As[employer] Gl[employer] Division of Trauma and Critical Care Erica [...] -3349 ml Labs Results for JOSE RAFAEL CISNREOS ( ) as of 02/21/2018 08:24 Ref. [...] mm 0.00 General: 67 y/o male in [facility] Incision: C/D/I, no erythema-conrado present Neuro: [...] -Will arrange outpatient FU ERICA CALDERON PA-C [facility] [address] [place] [address] Pg [phone] MEDICATIONS Current Facility-Administered Medications Medication acetaminophen (TYLENOL) [...] LMWH when INR is >2 Please page [phone] with any questions or concerns. Hugo Daniel M.D. Neurological Surgery Resident PGY-1 Pager: [phone] signed by Hugo Daniel MD at 02/20/2018 [...] neuro checks, pain control. Tino Cortez MD [facility] [address] [facility] [address] Associated attestation - Munira Best MD,MPH - 02/20/2018 5:15 PM PDTI saw and evaluat ed the patient. I agree with the findings and the plan of care as documented in the residen t s note. Adjusting pain control up as the patient has acute on chronic pain. Further, cl eared for full dose anticoagulation initiation today (VTE) Munira Best MD, MPH photoengraving finisher Trauma, Critical Care & Acute Care Surgery [facility] [place] Jakob Portillo MD - 02/19/2018 10:20 AM [...] dose beginning the morning of 02/20. - [facility] made aware by page APLA/History of DVT- [...] my supervising physicians. Jakob Portillo, PGY-1 Surgery 04488 Division of Trauma Department of Surgery Mail Code: L611 [address] [place] [address] Associated attestation - Munira Best MD,MPH - 02/19/2018 8:48 PM PDTTSICU ATTENDING M EDICAL DECISION MAKING I examined this patient with the ICU team. I have personally reviewed all pertinent labar otory findings, radiographs, and physiologic parameters. I personally performed pertinent p arts of the physical examination and personally formulated the plan with the TSICU team. Munira Best MD, MPH photoengraving finisher Trauma, Surgical Critical Care, & Acute Care Surgery [facility] [place] Munira Fang MD - 02/19/2018 8:01 AM PDT Neurosurgery Progress Note Date: 02/19/2018 Admitting Physician: Deandre Austin MD HPI: Jose Rafael Cisneros is a 67 y.o. male admitted to [facility] for trauma Interval Update: OR yest [...] 41 PO2 78 81 HCO3 26.0 25.4 F7GNABDV 95.3 96.3 CSF Results No results for [...] Please contact the neurosurgery resident on-call pager [phone] with questions. Munira Moore MD Neurological Surgery [...] my supervising physicians. Jakob Portillo, PGY-1 Surgery 84951 Division of Trauma Department of Surgery Mail Code: L611 [address] [place] [address] Associated attestation - Aracelis hWittington MD - 02/21/2018 10:50 PM PDTICU Attending: I saw and examined Jose Rafael Cisneros ([id number]) with the residents on 02/18/18 and agree with t he assessment and plan as outlined in this note and participated in the planning of care. 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 male admitted to [facility] for trauma Interval Update: NPO for [...] 41 PO2 78 81 HCO3 26.0 25.4 E6DCIGWM 95.3 96.3 CSF Results No results for [...] Please contact the neurosurgery resident on-call pager [phone] with questions. Munira Moore MD Neurological Surgery PGY2 azuMunira Mayo MD - 02/17/2018 9:54 AM PDT . Neurosurgery Progress Note Date: 02/17/2018 Admitting Physician: Deandre Austin MD HPI: Jose Rafael Cisneros is a 67 y.o. male admitted to [facility] for trauma Interval Update: NPO for [...] for input(s): FIO2, PH, PCO2, PO2, HCO3, DKFUT7EAO, P1EQFBGP, H3VZYKDWG in the l ast 720 hours. CSF [...] Please contact the neurosurgery resident on-call pager [phone] with questions. Munira Moore MD Neurological Surgery [...] Intake/Output Summary (Last 24 hours) at 02/17/18 0797 Last data filed at 02/17/18 0705 Gross [...] Department of Surgery Mail Code: L611 [address] [place] [address] Associated attestation - Aracelis Whittington MD - 02/19/2018 10:54 PM PDTICU Attending: I saw and examined Jose Rafael Cisneros ([id number]) with Vandana Lora PA-C on 02/17/18 and [...] after spine surgery. Aracelis Whittington MD FACS investment specialist Division of Trauma, Critical Care & Acute Care Surgery Jakob Portillo MD - 02/16/2018 3:38 PM PDTPer neurosurgery, case canceled today due to OR availability. Diabetic diet started. NPO at midnight for OR 02/17. Jakob Portillo, PGY-1 Surgery 67598 Jamie Hutton MD - 0 02/16/2018 11:34 [...] on xarelto Jamie Parra MD Neurosurgery PGY1 78655 Jakob mullen MD - 0 02/16/2018 9:25 [...] Department of Surgery Mail Code: L611 [address] [place] [address] Associated attestation - Aracelis Whittington MD - 02/17/2018 4:00 PM PDTAttending: I saw and examined Jose Rafael Cisneros ([id number]) with the residents on 02/16/18 and agree with t he assessment and plan as outlined in this note and participated in the planning of care. Aracelis Whittington MD FACS investment specialist Division of Trauma, Critical Care & Acute Care Surgery Munira Fang MD - 02/16/2018 5:00 AM PDT Neurosurgery Progress Note Date: 02/16/2018 Author: MUNIRA JACKSON MD Admitting Physician: Deandre Austin MD HPI: Jose Rafael Cisneros is a 67 y.o. male admitted to [facility] for trauma Interval Update: NPO for [...] for input(s): FIO2, PH, PCO2, PO2, HCO3, LJYJN5JZI, Z0JMAZLK, I2TYSTFAP in the l ast 720 hours. CSF [...] Please contact the neurosurgery resident on-call pager [phone] with questions. Munira Moore MD Neurological Surgery [...] [facility] | [address] | [place], [place] | | | [facility] | [address] | [address] | | | TESTS | | | [...] + + + | [facility] | [address] | [place], [place] | | | [facility] | [address] | [address] | | | TESTS | | | [...] [facility] | [address] | [place] [address] | | | NAY KANG | [address] [...] - [facility] | [address] | [place], [place] | | | [facility] | [address] | [address] | | | TESTS | | | [...] + + + | [facility] | [address] | [place], [place] | | | JOI SCIO [facility] | [address] | [address] | | | TESTS | | | [...] MARQU[facility] | [address] | [place], [place] | | | [facility] | [address] | [address] | | | TESTS | | | [...] - [facility] | [address] | [place], [place] | | | [facility] | [address] | [address] | | | TESTS | | | [...] + + + | [facility] | [address] | [place], [place] | | | JOI POINT [facility] | [address] | [address] | | | TESTS | | | [...] [facility] | [address] | [place] [address] | | | NAY KANG | [address] [...] [facility] | [address] | [place], [place] | | | [facility] | [address] | [address] | | | TESTS | | | [...] (H) | 70 - 99 mg/dL | [facility] - | | | GLUCOSE, | [...] ARGUETA | [address] | [place], [place] | | | [facility] | [address] | [address] | | | TESTS | | | [...] MARQUAM | [address] | [place], [place] | | | [facility] | [address] | [address] | | | TESTS | | | [...] | + + + + + | [facility] | [address] | [place] [address] | | | [facility] | [address] | | | + + + + + US SOFT TISSUE HEAD & NECK (02/20/2018 1:09 PM PDT) + + | Specimen | + + | | + + + + + | Narrative | Performed At | + + + | EXAM: US THYROID. HISTORY: Thyroid ultrasound for mass seen on | [facility] | | CT scan. COMPARISON: CTA neck [...] necessary, edited the report. I agree with [facility] report as now presented. | | | [...] [facility]ET[facility] | [address] | [place], [place] | | | [facility]ARE | [address] | [address] | | | TESTS | | | [...] MARQUAM | [address] | [place], [place] | | | [facility] | [address] | [address] | | | TESTS | | | [...] - ELLIE | [address] | [place], [place] | | | [facility] | [address] | [address] | | | TESTS | | | [...] (H) | 70 - 99 mg/dL | [facility] - | | | GLUCOSE, | [...] ARGUETA | [address] | [place], [place] | | | [facility]ARE | [address] | [address] | | | TESTS | | | [...] [facility] | [address] | [place] [address] | | | NAY KANG | [address] [...] ELLIE | [address] | [place], [place] | | | JOI POINT OF CARE | [facility] | [address] | | | TESTS | | | [...] (H) | 70 - 99 mg/dL | [facility] - | | | GLUCOSE, | [...] ARGUETA | [address] | [place], [place] | | | [facility] | [facility] | [address] | | | TESTS | | | [...] MARQUAM | [address] | [place], [place] | | | [facility] | [address] | [address] | | | TESTS | | | | + + + + + PROCEDURE NOTE (02/18/2018 3:25 PM PDT)[facility] VENOUS DUPLEX LOWER EXTREMITY BILAT COMP [...] Note | + + | Service Account, Grokker Res In Interface - 02/18/2018 3:50 PM [...] Attending | | Surgeon: Pablito Barroso MD Clipper Counters(s): All López MD, | | PhD Preoperative [...] after a C7 fracture. He presented to [facility] | | via Trauma having fallen [...] the occipital plate. A | | DePuy [employer] Synapse plate was sized and placed on [...] These were then final tightened using the theater company producer instrumentation. | | The area was thoroughly [...] 02/18/2018 12:36:03DT: 02/18/2018 13:17:58Job #: | | [id number] | |KG/MODL | | | | | | /[id number] | + + CAPILLARY BLOOD GLUCOSE (NO [...] [facility] | [address] | [place], [place] | | | JOI POINT [facility] CARE | [address] | [address] | | | TESTS | | | [...] MARQUAM | [address] | [place], [place] | | | [facility] | [facility] | [address] | | | TESTS | | | [...] MARYAMILETAM | [address] | [place], [place] | | | [facility]AB[facility] T[facility]Z [facility] | [facility] | [address] | | | TESTS | | | [...] + + + | [facility] | [address] | [place], [place] | | | JOI POINT OF [facility] | [address] | [address] | | | TESTS | | | [...] - [facility] | [address] | [place], [place] | | | [facility]AB[facility] CARE | [address] | [address] | | | TESTS | | | [...] [facility] | [address] | [place] [address] | | | SERVICES, CORE | PARK [...] [facility] | [address] | [place] [address] | | | PEARL, NAY | PARK [...] [facility] | [address] | [place] [address] | | | SERVICES, CORE | PARK [...] | | | LABORATORY | | | [facility] | | | SERVICES, | | [...] the MDRD equation recommended by the | [facility] | | National Kidney Disease Education [...] | + + + + + | [facility] | [address] | [place] [address] | | | PEARL, NAY | [address] | | | + + + + + INTRAOPERATIVE NEURO MONITORING (02/18/2018) + + + | Narrative | Performed At | + + + | Patient Name: Jose Rafael Cisneros Date of : 1950 Medical | | | Record Number: [id number] Date of Test: 02/18/2018 Place of | | | Service: IP Intra Op (29) [id number] INTRAOPERATIVE NEURO | | | MONITORING IOM: [...] 9 @ 15 min(s), [place] [address] - Short Latency EP's | | | Upper AND Lower extremities 86166 - Central Motor EP's Upper AND | | | Lower extremities 09369 - EEG in Sleep Suggested Diagnosis: S14.152A [...] AR[facility]ET[facility] | [address] | [place], [place] | | | [facility] CARE | [address] | [address] | | | TESTS | | | [...] MARQU[facility] | [address] | [place], [place] | | | JOI POINT [facility] CARE | [address] | [address] | | | TESTS | | | [...] MARQUAM | [address] | [place], [place] | | | BAB[facility] TAMEZ OF [facility] | [facility] | [address] | | | TESTS | | | [...] ARGUETA | [address] | [place], [place] | | | [facility]ABAR [facility]AMEZ OF CARE | [address] | [address] | | | TESTS | | | [...] [facility] | [address] | [place] | | | JOI POINT [facility] CARE | [address] | [address] | | | TESTS | | | [...] | + + + + + | [facility] | [address] | [place] [address] | | | NAY KANG | [address] [...] | + + + + + | [facility] | [address] | [place] [address] | | | SERVICES, CORE | [address] | | | + + + + + MAGNESIUM, PLASMA (02/17/2018 12:31 AM PDT) + +-------+ + + + | Component | Value | Ref Range | Performed | Pathologist | | | | | At | Signature | + +-------+ + + + | MAGNESIUM,P | 2.1 | 1.6 - 2.6 mg/dL | [facility] | | | LASMA | | | [...] [facility] | [address] | [place] [address] | | | SERVICES, NAY | [address] [...] | | | LABORATORY | | | [facility] | | | SERVICES, | | [...] | + + + + + | [facility] | [address] | [place] [address] | | | SERVICES, CORE | [address] [...] [facility] | [address] | [place], [place] | | | BAB[facility] TAMEZ OF CARE | [facility] | [address] | | | TESTS | | | [...] (H) | 70 - 99 mg/dL | [facility] - | | | GLUCOSE, | [...] ELLIE | [address] | [place], [place] | | | BABAR TAMEZ OF CARE | [address] | [address] | | | TESTS | | | [...] DEPT OF | [address] | [place], [place] | | | CARDIOLOGY | [address] | [address] | | + + + + + [...] MARQU[facility] | [address] | [place], [place] | | | JOI POINT OF CARE | [address] | [address] | | | TESTS | | | [...] - ELLIE | [address] | [place], [place] | | | JOI POINT OF CARE | [address] | [address] | | | TESTS | | | [...] | + + + + + | [facility] | [address] [facility] | [place] [address] | | | SERVICES, CORE | PARK [...] [facility] | [address] | [place] [address] | | | SERVICES, CORE | PARK [...] | Reference range change effective 04/06/17. | [facility] | | | LABORATORY | | | NAY KANG | + + + + + + + + | Performing | Address | City/State/Zipcode | Phone Number | | Organization | | | | + + + + + | [facility] | [address] | [place] [address] | | | NAY KANG | PARK [...] | | | LABORATORY | | | [facility] | | | SERVICES, | | [...] | + + + + + | [facility] | [address] | [place] [address] | | | SERVICES, CORE | PARK [...] | + + + + + | [facility] | [address] | [place] [address] | | | SERVICES, CORE | [address] [...] | + + + + + | [facility] | [address] | [place] [address] | | | SERVICES, CORE | [address] [...] MARYAMILETAM | [address] | [place], [place] | | | BABAR TAMEZ OF CARE | [address] | [address] | | | TESTS | | | [...] [facility] | [address] | [place] [address] | | | SERVICES, CORE | PARK [...] [facility] | [address] | [place] [address] | | | SERVICES, | [address] [...] [facility] | [address] | [place] [address] | | | SERVICES, | [address] [...] [facility] | [address] | [place], [place] | | | BAB[facility]Z OF [facility] | [address] | [address] | | | TESTS | | | [...] 4:56 PM Preliminary: Soo Yost MD 02/15/2018 | | | 4:48 PM [...] Note | + + | Service Account, Grokker Res In Interface - 02/15/2018 4:57 PM [...] AR[facility]ETA | [address] | [place], [place] | | | JOI POINT OF CARE | [address] | [address] | | | TESTS | | | [...] [facility] | [address] | [place], [place] | | | BABAR TAMEZ OF CARE | [address] | [address] | | | TESTS | | | [...] | + + + + + | [facility] | [address] | [place] [address] | | | NAY KANG | [address] [...] [facility] | [address] | [place] [address] | | | NAY KANG | [address] [...] | + + + + + | [facility] | [address] | [place] [address] | | | SERVICES, CORE | [address] [...] | + + + + + | [facility] | [address] | [place] [address] | | | SERVICES, CORE | PARK [...] | + + + + + | [facility] | [address] | [place] [address] | | | SERVICES, | [address] [...] [facility] | [address] | [place] [address] | | | SERVICES, CORE | PARK [...] | | | LABORATORY | | | [facility] | | | SERVICES, | | [...] the MDRD equation recommended by the | [facility] | | National Kidney Disease Education [...] | + + + + + | [facility] | [address] | [place] [address] | | | PEARL, NAY | [address] [...] [facility] | [address] | [place] [address] | | | NAY KANG | [address] [...] + + + | [facility] | [address] | [place], [place] | | | JOI POINT OF CARE | [facility] | [address] | | | TESTS | | | [...]
--- OUTSIDE RECORDS SUMMARY | ~2019-08-03 | XMS | Encounter Summary ---
Demographics + + + | Address | [address] | | | [place] [address] | + + + | Home Phone [...] Providers + +------+ + | Care Diamond Wheel Molder Name | Role | Phone | + [...] 03/12/ | Surgery | 6A [address] Op [address] | Rosa M Smart MD | COMPLEX RIGHT TOTAL | | 2013 | | [facility] | [address] [facility] | HIP ARTHROPLASTY AND | | | | Rd [facility] | [facility] | VACUUM ASSISTED | | | | Hospital Admitting | [place], [place] | CLOSURE | | | | Desk Located on the | [address] | | | | | 9th floor | [phone] | | | | | [place], [place] | | | | | | [address] | | | +--------+---------+ + + + [...] might be different fr om the original. [facility] IN[facility]IENT HOSPITAL DISCHARGE SUMMARY & INTERDISCIPLINARY INSTRUCTIONS Patient: Jorge L Cisneros CSN: [id number] Admission Date: 03/12/2014 Discharge Date: 03/16/2014 Attending Physician: Rosa M Smart MD PCP: Gracie Mariano MD Service: [facility] Orthopaedics & Rehabilitation Diagnoses Principal Final [...] they suspect your wound is infected. Call [facility] Orthopedics first at [phone]. Activity Weight bear as tolerated on both [...] AM Rosa M Smart [facility]opa[facility] at [facility] [phone] Orthopedics PCP: As needed for any medical [...] our pleasure. Ender Phelps MD Pager # [phone] documented in this enc ounter Discharge Instructions Instructions Gifty Coffey RN - 03/16/2014Patient Education Materials: AVS paperw ork & dressing supplies. Provided patient with morphine, sennakot and miralax that were fill ed at our outpatient pharmacy. No personal belongings held in our safe. Pt. Did not have an y additional questions at this time. Patients transportation from [facility] transporting rogers donato back home. Additional Instructions: Per Sarah Gee NP: Pt is to take three 1 mg warfarin tabs for a tot al of 3 mg warfarin only this evening of 03/16/2014. Patient will then resume taking his norm al dose of 6mg warfarin starting on . Patient education provided by this narrative writer beti bowen these medication instructions. HANNA [...] home today Ender Phelps MD Pager # [phone] enise, Rosa M Paige MD - 03/15/2014 7:55 [...] possibly tomorrow Ender Phelps MD Pager # [phone] I performed a history and physical examination of the patient and discussed his management with the resident. I reviewed the resident s note and agree with the documented findings and plan of care. ROSA M SMART MD [facility] [address] [place] [address] Rosa M Cárdenas MD - 0 03/14/2014 [...] Intake/Output Summary (Last 24 hours) at 03/14/14 07 Last data filed at 03/14/14 0600 Gross [...] d/w YULIANA. Ender Phelps MD Pager # [phone] I performed a history and physical examination of the patient and discussed his management with the resident. I reviewed the resident s note and agree with the documented findings and plan of care. ROSA M SMART MD [facility] [address] [place] [address] Ender Camara MD - 03/13/2014 8:08 AM [...] Dispo: pending Ender Phelps MD Pager # [phone] Rosa M Cárdenas MD - 03/12/2014 5:36 PM [facility] POST OPERATIVE CHECK IDENTIFICATION: Patient: [...] treatment tomorrow Ender Phelps MD Pager # [phone] I performed a history and physical examination of the patient and discussed his management with the resident. I reviewed the resident s note and agree with the documented findings and plan of care. ROSA M SMART MD [facility] [address] [place] [address] Karen Stephen MD - 03/12/2014 12:32 PM PDTID: 63 year old man with PMH of ankylosing spondylitis with complete spine involvement and bilateral hip involvement. He is s/p L hip arthroplasty and HO prophy laxis with radiation therapy on 04/2012. He now presents s/p total R hip arthroplasty with pr monicoary team requesting HO ppx. His surgery was [...] - [place] | [address] | [place], [place] | | | JOI POINT OF CARE | [facility] | [address] | | | TESTS | | | [...] [facility] | [address] | [place] [address] | | | SERVICES, CORE | PARK [...] | + + + + + | [facility] | [address] [address] | [place] [address] | | | NAY KANG | G[place] [...] | | | LABORATORY | | | [facility] | | | SERVICES, | | | [...] + + + + + | [facility] | [address] | [place] [address] | | | SERVICES, CORE | PARK [...] AUTUMN - [place] | [address] | [place], [place] | | | BABAR TAMEZ OF CARE | [address] | [address] | | | TESTS | | | [...] ELLIE | [address] | [place], [place] | | | BABAR TAMEZ OF TIMUR | [facility] | [address] | | | TESTS | | | [...] (H) | 60 - 99 mg/dL | [facility] - | | | GLUCOSE, | [...] [facility] | [address] | [place], [place] | | | JOI POINT OF CARE | [address] | [address] | | | TESTS | | | [...] [facility] | [address] | [place] [address] | | | SERVICES, CORE | PARK [...] | | | LABORATORY | | | [facility] | | | SERVICES, | | | [...] the MDRD equation recommended by the | [facility] | | National Kidney Disease Education Program. [...] | + + + + + | [facility] | [address] | [place] [address] | | | NAY KANG | GENN[place]O [...] | + + + + + | [facility] | [address] | [place] [address] | | | NAY KANG | GENNARO [...] ELLIE | [address] | [place], [place] | | | BABAR TAMEZ OF CARE | [facility] | [address] | | | TESTS | | | [...] (H) | 60 - 99 mg/dL | [facility] - | | | GLUCOSE, | [...] [place] | [address] | [place], [place] | | | BABAR TAMEZ OF CARE | [facility] | [address] | | | TESTS | | | [...] [place] | [address] | [place], [place] | | | BABAR TAMEZ OF CARE | [address] | [address] | | | TESTS | | | [...] + + + + + | [facility] | [address] | [place] [address] | | | SERVICES, CORE | PARK [...] | | | LABORATORY | | | [facility] | | | SERVICES, | | | [...] [facility] | [address] | [place] [address] | | | SERVICES, CORE | PARK [...] | + + + + + | [facility] | [address] | [place] [address] | | | SERVICES, CORE | GENNARO [...] (H) | 60 - 99 mg/dL | [facility] - | | | GLUCOSE, | [...] [place] | [address] | [place], [place] | | | BABAR TAMEZ OF CARE | [address] | [address] | | | TESTS | | | [...] [place] | [address] | [place], [place] | | | BABAR TAMEZ OF CARE | [address] | [address] | | | TESTS | | | [...] [place] | [address] | [place], [place] | | | BABAR TAMEZ OF CARE | [facility] | [address] | | | TESTS | | | [...] + + + | AUTUMN [facility] | [address] | [place], [place] | | | BABAR TAMEZ OF [facility] | [address] | [address] | | | TESTS | | | [...] [facility] | [address] | [place] [address] | | | SERVICES, CORE | PARK [...] [facility] | [address] | [place] [address] | | | SERVICES, CORE | PARK [...] | | | LABORATORY | | | [facility] | | | SERVICES, | | | [...] the MDRD equation recommended by the | [facility] | | National Kidney Disease Education Program. Estimated GFR | LABORATORY | | Interpretive Information: <60 mL/min/1.73 sq m | PEARL, NAY | | Chronic Kidney Disease <15 mL/min/1.73 [...] | + + + + + | [facility] | [address] | [place] [address] | | | NAY KANG | GENNARO [...] | [facility] | [address] | [place], [place] | | | BABAR TAMEZ OF [place] | [address] | [address] | | | TESTS | | | [...] [place] | [address] | [place], [place] | | | BABAR TAMEZ OF TIM[place] | [address] | [address] | | | TESTS | | | | + + + + + X-RAY PORTABLE PELVIS 1 VIEW (03/12/2014 12:28 PM PDT) + + + + + + | Component | Value | Ref Range | Performed | Pathologist | | | | | At | Signature | + + + + + + | X-RAY | STUDY: DC PELVIS 1 VIEW | | | | [...] | | + +---------+ + + | [facility] DEPARTMENT OF | | | | [...] [place] | [address] | [place] | | | BABAR TAMEZ OF CARE | [address] | [address] | | | TESTS | | | [...] [place] | [address] | [place], [place] | | | BABAR TAMEZ OF CARE | [facility] | [address] | | | TESTS | | | [...] [place] | [address] | [place], [place] | | | BABAR TAMEZ OF [facility] | [address] | [address] | | | TESTS | | | | + + + + + POTASSIUM (LORETTA GONSALEZ (03/12/2014 10:19 AM PDT) + [...] [facility] | [address] | [place], [place] | | | BABAR TAMEZ OF CARE | [address] | [address] | | | TESTS | | | [...] AUTUMN - ELLIE | [address] | [place], [place] | | | BABAR TAMEZ OF CARE | [facility] | [address] | | | TESTS | | | | + + + + + CHLORIDE (DIANE) POC (03/12/2014 10:19 AM PDT) + +-------+ + + + | Component | Value | Ref Range | Performed | Pathologist | | | | | At | Signature | + +-------+ + + + | CHLORIDE, | 105 | 97 - 108 mmol/L | AUTUMN - | | | POC | | [...] [place] | [address] | [place], [place] | | | BABAR TAMEZ OF [facility] | [facility] | [address] | | | TESTS | | | [...] ELLIE | [address] | [place], [place] | | | BABAR TAMEZ OF CARE | [address] | [address] | | | TESTS | | | [...] - [place] | [address] | [place], [place] | | | BABAR TAMEZ OF TIMUR | [facility] | [address] | | | TESTS | | | [...] MARJIMMIE | | | | | | HILL, [...] [place] | [address] | [place], [place] | | | JOI POINT OF TIMUR | [facility] | [address] | | | TESTS | | | [...] | + + + + + | [facility] | [address] | [place] [address] | | | SERVICES, CORE | GENNARO [...] (H) | 60 - 99 mg/dL | [facility] - | | | GLUCOSE, | [...] [place] | [address] | [place], [place] | | | BABAR TAMEZ OF [facility] | [facility] | [address] | | | TESTS | | | [...]
--- OUTSIDE RECORDS SUMMARY | ~2019-08-03 | XMS | Encounter Summary ---
Demographics + + + | Address | [address] | | | [place] [address] | + + + | Home Phone [...] Author + + + | Author | [facility] | + + + | Organization | [facility] | + + + | Address [...] Team Providers + +------+ + | Care Street Light Servicer Supervisor Name | Role | Phone | [...] + + | 12/28/ | Hospital | [facility] [address] | [place], | | | 2012 | Encounter | [address] | [address] | | | | | [facility] | [place] [address] | | | | | [facility] | [phone] | | | | | ([facility]) | | | | | | [place], [place] | | | | | | [address] | | | | | | [phone] | | | +--------+ + + + [...] Discharge Instructions Instructions Anabel Priest RN - 12/28/2012[facility] Instructions after Colonoscopy You may resume [...] Wednesday 8:00- 4:30 Endoscopy Toll free ext: [phone] or After business hours, or on weekends and holidays call the Hospital Insurance Administrative Assistant Toll Free [phone] Ext. [phone] or and have the GI doctor monotype machinist paged. The provider who performed your procedure [...] +-------- ------+ | CULTURE | C AFBSource: Colon | | [place] - | | | RESULT | | | [facility] - | | | | Final SMEAR:AFB not | | [place] | | | | detected CULTURE | | | | | | RESULT:No acid fast | | | | | | bacteria isolated at 6 | | | | | | weeks. | | | | | |No [...] | + + + + + | [employer] - AIRPORT - | [address] | [place] [address] | | | [place] | | | | + + + [...] - ELLIE | [address] | [place], [place] | | | BABAR TAMEZ OF [facility] | [facility] | [address] | | | TESTS | | | [...] [facility] | [address] | [place] [address] | | | SERVICES, CORE | PARK [...] | Information: <60 mL/min/1.73 sq m Chronic Kidney | | | Disease <15 mL/min/1.73 sq m Kidney Failure | | | Estimated GFR greater that 60 mL/min/1.73 sq m is of limited clinical | | | value. The MDRD equation is not valid in the following situations: | | | - Patients under 18 years of age - Severe malnutrition or obesity | | | - Vegetarian diet - Rapidly changing kidney function | | + + + + + + + + | Performing | Address | City/State/Zipcode | Phone Number | | Organization | | | | + + + + + | 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 His | | | | | | colonoscopy wasfor | | | | | | polyp surveillance and | | | | | | showed an ulcerated and | | | | [...] | | | | | (initials TH) and: | | | | | | A: Terminal ileum | | | | | | biopsy: Received are 2 | | | | | | fragments of fried, soft | | | | | | tissuethat measure 0.5 x | | | | | | 0.3 x 0.2 cm in | | | | | | aggregate. The entire | | | | | | specimen issubmitted. | | | | | | [...] | | | | | | specimen issubmitted. | | | | | | [...] | | | | | | specimen issubmitted. | | | | | | Cassette Index:A: | | | | | | Terminal ileum | | | | | | biopsy:A1B: Ileocecal | | | | | | valve ulcer:B1C: | | | | | | Random colon | | | | | | biopsy:C1ML:tp My | | | | | | [...] Diagnostician: | | | | | | Gumaro Stovall | | | | | | Monica | | | | | | Vaishnavi,Ph.D.PathologistEle [...] + + + | [facility] | [address] | [place] [address] | | | PATHOLOGY | [address] [...]
--- OUTSIDE RECORDS SUMMARY | ~2019-08-03 | XMS | Encounter Summary ---
Demographics + + + | Address | [address] | | | [place] [address] | + + + | Home Phone [...] Providers + +------+ + | Care Manager Export Name | Role | Phone | + [...] Rd | | | | | | [place], [place] | | | | | | [address] | | | +--------+ + + + [...]
--- OUTSIDE RECORDS SUMMARY | ~2019-08-03 | XMS | Encounter Summary ---
Demographics + + + | Address | [address] | | | [place] [address] | + + + | Home Phone [...] Author + + + | Author | [facility] | + + + | Organization | [facility] | + + + | Address [...] | | | | | ANTICOAGULAT | [address] | [address] | | | | | [facility] | Phone: | Physician's | | | | | | [phone] | Pavilion | | | | | | Fax: | [place], [place] | | | | | | [phone] | [address] | | | | | | | Phone: | | | | | | | [phone] | | | | | | | Fax: | | | | | | | [phone] | +--------+--------+ + + + + Reason [...] [address] | | | | | [place], [place] | Mary Ruiz [place], | | | [birth year] | | [address] | [place] [address] | | | 2012 | | [phone] | [phone] | | | | | | | | | | | | Jorge Walker MD | | | | | | [address] | | | | | | [place], | | | | | | [place] [address] | | | | | | [phone] | | | | | | | [...] the resident s note. MILTON RODRÍGUEZ MD [facility] [address] [facility] [facility] [place] [address] romRaghavendra mantilla MD - 0 03/20/2013 3:22 [...] of CVA. He was recently discharged from [facility] ([place], [place]) for acute cholecystitis. On 03/06/13 had sudden onset epigastric pain and self-presented to the hospital. Gallbladder US at that art e showed gallstones and possible acute cholecystitis. The patient eventually improved and wa s discharged for evaluation at [facility] EGS clinic. Prior abdominal surgery includes midline [...] might be different f rom the original. [facility] DEPARTMENT OF SURGERY EMERGENCY GENERAL SURGERY Division [...] other applicable data points. Please refer to [facility] for this information . PHYSICAL EXAM: [...] resol ution of constipation [place] [phone] [facility] A [address] [place] [facility] [place] [address] arTez mcallister NP - 03/17/2013 2:33 PM PDT [facility] DEPARTMENT OF SURGERY EMERGENCY GENERAL SURGERY [...] other applicable data points. Please refer to [facility] for this information . PHYSICAL EXAM: [...] ABX on Probiotics: [place] [phone] pager number [facility] [place] A [address] [facility] [address] Anais Mccarthy MD - 03/16/2013 8:58 AM PDT [facility] DEPARTMENT OF SURGERY EMERGENCY GENERAL SURGERY Division [...] other applicable data points. Please refer to [facility] for this information . PHYSICAL EXAM: [...] None Fluids: Saline locked Feeding: Diabetic Analgesia: BASE MANAGER 0.6/6mins Sedation: not indicated Thromboprophylaxis: enoxaparin, SCDs Head of bed: > 30 Ulcer prophylaxis: None Glycemic control: Insulin lispro Activity/PT/OT: Up ad farzana Yogurt: ABX on Probiotics: None TEZ RAINEY NP [facility] [address] Nathalia Mccatrhy MD - 03/15/2013 10:24 AM PDTFormatting of this note might be different from the origina l. [facility] DEPARTMENT OF SURGERY EMERGENCY GENERAL SURGERY Division of Trauma and Critical Care Attending Physician: Raf Tello MD Progress Note Note Date: 03/15/2013 Admission Date: 03/10/2013 JOSE RAFAEL CISNEROS, Hospital Day #5 INTERVAL HISTORY and SUBJECTIVE: No acute events overnight. Pt still complaining of some abdominal tightness. REVIEW OF SYSTEMS: Pain: Pain is still 03/01 with increased BASE MANAGER 03/14 Flatus: NO Tolerating diet: Tolerating clears Nausea/Vomiting: None Bowel movement: NO Progressing with Physical Therapy: None, up ad farzana. The remainder of the complete review of system was negative. OBJECTIVE: I have reviewed the interval history and events. I have revewed the patients medications, l abs, vitals, and other applicable data points. Please refer to [facility] for this information . PHYSICAL EXAM: [...] chair TID Acute on Chronic Pain - BASE MANAGER dilaudid increase dose range and lockout. - [...] None Fluids: Saline locked Feeding: Clears Analgesia: BASE MANAGER 0.6/6mins Sedation: not indicated Thromboprophylaxis: enoxaparin, SCDs Head of bed: > 30 Ulcer prophylaxis: None Glycemic control: Insulin lispro Activity/PT/OT: Up ad afrzana Yogurt: ABX on Probiotics: [place] [phone] [facility] A [address] [place] [facility] [place] [address] arary Tez S , DOCUMENTATION IMPROVEMENT SPECIALIST - 03/14/2013 9:05 AM PDT [facility] DEPARTMENT OF SURGERY EMERGENCY GENERAL SURGERY Division of Trauma and Critical Care Attending Physician: Raf Tello MD Progress Note Note Date: 03/14/2013 Admission Date: 03/10/2013 JOSE RAFAEL CISNEROS, Hospital Day #4 INTERVAL HISTORY and SUBJECTIVE: history of chronic pain. BASE MANAGER with pain. Will adjust dos e and [...] other applicable data points. Please refer to [facility] for this information . PHYSICAL EXAM: [...] chair TID Acute on Chronic Pain - BASE MANAGER dilaudid increase dose range and lockout. - [...] D51/2 with 20kl Feeding: NPO Analgesia: dilaudid BASE MANAGER Sedation: not indicated Thromboprophylaxis: enoxaparin 120mg bid for Antiphospholipid syndrome Head of bed: > 30 Ulcer prophylaxis: 2 Glycemic control: adequate Activity/PT/OT: Ongoing Yogurt: ABX on Probiotics: No [place]INEY NP '[phone] pager number [facility] A [address] [facility] [address] Richie Toth MD - 03/14/2013 1:52 AM PDT [facility] DEPARTMENT OF SURGERY EMERGENCY GENERAL SURGERY Division [...] other applicable data points. Please refer to [facility] for this information . PHYSICAL EXAM: [...] NEURO: Alert, oriented, gross motor function intact, lottery clerk grossly intact, LUNGS: CTAB CV: RRR, no [...] below: Likely DC george in AM, DC BASE MANAGER in AM Antiphospholipid antibody syndrome, chronic anticoagulation: [...] None Fluids: PO Feeding: Reg Analgesia: dilaudid student records coordinator Sedation: not indicated Thromboprophylaxis: Therapeutic lovenox Head of bed: > 30 Ulcer prophylaxis: n/a Glycemic control: SSI Activity/PT/OT: Ordered. - up ad farzana TID+[place] [phone] pager number [facility] A [address] [facility] [address] Ricky Mosley MD - 03/13/2013 8:35 AM [...] Murry MD - 03/12/2013 7:10 AM PDT [facility] DEPARTMENT OF SURGERY EMERGENCY GENERAL SURGERY PROGRESS NOTE: Note Date: 03/12/2013 Admission Date: 03/10/2013 JOSE RAFAEL CISNEROS, [id number] Hospital Day #2 SUBJECTIVE: - irritation and [...] follow up: EGS TBD. ARTHUR HERRERA MD [facility] [address] [facility] [facility] [place] [id number] Diagnoses: [id number] Cholecystitis [id number] Ventral hernia V72.83 Other specified pre-operative examination attArthur chauhan MD - 03/11/2013 7:02 AM PDT [facility] DEPARTMENT OF SURGERY Attending Physician: Raf Tello MD Progress Note Note Date: 03/11/2013 Admission Date: 03/10/2013 JOSE RAFAEL CISNEROS, [id number] Hospital Day #1 INTERVAL HISTORY and SUBJECTIVE: [...] other applicable data points. Please refer to [facility] for this information . PHYSICAL EXAM: [...] up: EGS TBD. ARTHUR HERRERA MD Pager: [phone] [facility] [address] [facility] [place] [address] documented in this en counter [...] + + | [facility] | [address] [facility] | [place] [address] | | | SERVICES, CORE | PARK [...] | + + + + + | [facility] | [address] | [place] [address] | | | SERVICES, CORE | MARY [...] | | | LABORATORY | | | TRISTANIAN | | | SERVICES, | | | [...] the MDRD equation recommended by the | [facility] | | National Kidney Disease Education Program. [...] [facility] | [address] | [place] [address] | | | SERVICES, CORE | PARK [...] | + + + + + | [facility] | [address] | [place] [address] | | | SERVICES, NAY | MARY [...] [facility] | [address] | [place], [place] | | | BABAR T[place] OF [place] | [facility] | [address] | | | TESTS | | | [...] [facility] | [address] | [place], [place] | | | JOI POINT OF CARE | [address] | [address] | | | TESTS | | | [...] [facility] | [address] | [place] [address] | | | SERVICES, NAY | MARY [...] [facility] | [address] | [place] [address] | | | SERVICES, CORE | PARK [...] | | | LABORATORY | | | TRISTANIAN | | | SERVICES, | | | [...] | + + + + + | [facility] | [address] | [place] [address] | | | PEARL, NAY | MARY [...] + + + | [facility] | [address] [facility] | [place] [address] | | | SERVICES, NAY | MARY [...] [facility] | [address] | [place], [place] | | | JOI POINT OF CARE | [address] | [address] | | | TESTS | | | [...] [facility]ET[facility] | [address] | [place], [place] | | | BABAR TAME[place] OF [place] | [address] | [address] | | | TESTS | | | [...] [facility] | [address] | [place], [place] | | | BABAR TAMEZ OF CARE | [address] | [address] | | | TESTS | | | [...] + + + | [facility] | [address] | [place] [address] | | | SERVICES, CORE | PARK [...] | + + + + + | [facility] | [address] | [place] [address] | | | SERVICES, CORE | MARY [...] | | | LABORATORY | | | TRISTANIAN | | | SERVICES, | | | [...] [facility] | [address] | [place] [address] | | | SERVICES, CORE | PARK [...] | + + + + + | [facility] | [address] | [place] [address] | | | PEARL, NAY | MARY [...] [facility] | [address] | [place], [place] | | | BABAR TAME[place] OF [place] | [address] | [address] | | | TESTS | | | [...] [facility] | [address] | [place], [place] | | | JOI POINT OF CARE | [address] | [address] | | | TESTS | | | [...] [facility] | [address] | [place], [place] | | | BABAR TAMEZ OF CARE | [address] | [address] | | | TESTS | | | [...] [facility] | [address] | [place] [address] | | | SERVICES, CORE | PARK [...] | + + + + + | [facility] | [address] [facility] | [place] [address] | | | SERVICES, CORE | MARY [...] | | | LABORATORY | | | TRISTANIAN | | | SERVICES, | | | [...] the MDRD equation recommended by the | [facility] | | National Kidney Disease Education Program. [...] + + + | [facility] | [address] | [place] [address] | | | SERVICES, CORE | MARY [...] (H) | 0.90 - 1.20 INR | [facility] | | | | | | LABORATORY [...] + + + | [facility] | [address] | [place] [address] | | | NAY KANG | MARY [...] (H) | 60 - 99 mg/dL | [facility] - | | | GLUCOSE, | | [...] [facility] | [address] | [place], [place] | | | BABAR T[place] OF [place] | [address] | [address] | | | TESTS | | | [...] AR[facility]ETA | [address] | [place], [place] | | | BABAR TAMEZ OF [place] | [facility] | [address] | | | TESTS | | | [...] [facility] | [address] | [place], [place] | | | BABAR TAMEZ OF CARE | [facility] | [address] | | | TESTS | | | [...] (H) | 60 - 99 mg/dL | [facility] - | | | GLUCOSE, | | [...] ELLIE | [address] | [place], [place] | | | BABAR TAMEZ OF [facility] | [address] | [address] | | | TESTS | | | [...] ARGUETA | [address] | [place], [place] | | | BABAR TAMEZ OF TIMUR | [facility] | [address] | | | TESTS | | | [...] | + + + + + | [facility] | [address] | [place] [address] | | | NAY KANG | [address] | | | + + + + + OPERATION RECORD (03/15/2013 1:17 PM PDT) + + | Transcriptions | + + | Devin Gonzalez MD - 03/13/2013 2:30 PM PDT Date: 03/13/2013 | | | | Attending Surgeon: Steffen Rodríguez M.D. | | | | Pre Certification Specialist(s): Devin Gonzalez MD | | Ricky [...] He was told to follow up in [facility] EGS clinic for further care. | | [...] | | The patient was taken to [facility] OR number 6 and placed in the [...] | | PD / HS | | [id number] / [id number] / [id number] / | | | | | + [...] - [facility] | [address] | [place], [place] | | | JOI POINT OF CARE | [address] | [address] | | | TESTS | | | [...] | + + + + + | [facility] | [address] [facility] | [place] [address] | | | SERVICES, CORE | PARK [...] [facility] | [address] | [place] [address] | | | SERVICES, CORE | PARK [...] | | | LABORATORY | | | TRISTANIAN | | | SERVICES, | | | [...] [facility] | [address] | [place] [address] | | | SERVICES, CORE | PARK [...] + + + | [facility] | [address] | [place] [address] | | | SERVICES, CORE | MARY [...] (H) | 60 - 99 mg/dL | [facility] - | | | GLUCOSE, | | [...] AR[facility]ETA | [address] | [place], [place] | | | JOI POINT OF CARE | [address] | [address] | | | TESTS | | | [...] [facility] | [address] | [place], [place] | | | JOI POINT OF CARE | [address] | [address] | | | TESTS | | | [...] - [facility] | [address] | [place], [place] | | | JOI POINT OF CARE | [address] | [address] | | | TESTS | | | [...] | + + + + + | [facility] | [address] | [place] [address] | | | SERVICES, CORE | PARK [...] [facility] | [address] | [place] [address] | | | SERVICES, CORE | PARK [...] | | | LABORATORY | | | TRISTANIAN | | | SERVICES, | | | [...] + + + | [facility] | [address] | [place] [address] | | | SERVICES, CORE | PARK [...] | + + + + + | [facility] | [address] | [place] [address] | | | SERVICES, CORE | PARK [...] [facility] | [address] | [place], [place] | | | BABAR TAMEZ OF CARE | [address] | [address] | | | TESTS | | | [...] [facility] | [address] | [place], [place] | | | BABAR TAMEZ OF CARE | [address] | [address] | | | TESTS | | | [...] [facility]ET[facility] | [address] | [place], [place] | | | JOI POINT OF CARE | [address] | [address] | | | TESTS | | | [...] [facility] | [address] | [place], [place] | | | BABAR TAMEZ OF CARE | [address] | [address] | | | TESTS | | | [...] + + + | [facility] | [address] | [place] [address] | | | PEARL, NAY | MARY [...] | 1.5 | 0.5 - 1.6 | [facility] - | | | | | mmol/L [...] ELLIE | [address] | [place], [place] | | | JOI POINT OF CARE | [address] | [address] | | | TESTS | | | [...] [facility]ET[facility] | [address] | [place], [place] | | | BABAR TAMEZ OF CARE | [facility] | [address] | | | TESTS | | | [...] [facility] | [address] | [place], [place] | | | BABAR TAMEZ OF CARE | [facility] | [address] | | | TESTS | | | | + + + + + GLUCOSE, POC (03/13/2013 11:54 AM PDT) + +---------+ + + + | Component | Value | Ref Range | Performed | Pathologist | | | | | At | Signature | + +---------+ + + + | GLUCOSE, | 227 (H) | 60 - 99 mg/dL | [facility] - | | | POC | | [...] ELLIE | [address] | [place], [place] | | | BABAR TAMEZ OF TIMUR | [facility] | [address] | | | TESTS | | | [...] AR[facility]ETA | [address] | [place], [place] | | | BABAR TAMEZ OF CARE | [address] | [address] | | | TESTS | | | [...] MAR[facility] | [address] | [place], [place] | | | DEBORAH TAMEZ CARE | [facility] | [address] | | | TESTS | | | [...] + + + | [facility] | [address] | [place], [place] | | | JOI POINT OF CARE | [address] | [address] | | | TESTS | | | [...] | | POC | | | BABAR TAEMZ | | | | | | OF [...] [facility] | [address] | [place], [place] | | | BABAR TAMEZ OF CARE | [address] | [address] | | | TESTS | | | [...] (H) | 60 - 99 mg/dL | [facility] - | | | GLUCOSE, | | [...] AR[facility]ET[facility] | [address] | [place], [place] | | | BABAR TAMEZ OF [place] | [address] | [address] | | | TESTS | | | [...] | + + + + + | [employer] [facility] | [address] | [place] [address] | | | SERVICES, CORE | MARY [...] [facility] | [address] | [place], [place] | | | JOI POINT OF CARE | [address] | [address] | | | TESTS | | | [...] MHilario/PathologistT: | | | | | | 3:midna Clinical | | | | | | [...] cmSerosa: | | | | | | [place] with | | | | | | [...] | | | | | | and teleservices representative | | | | | | [...] | + + + + + | [facility] | [address] | [place] [address] | | | PATHOLOGY | [address] [...] [facility] | [address] | [place], [place] | | | BABAR TAMEZ OF [place] | [address] | [address] | | | TESTS | | | [...] - [facility] | [address] | [place], [place] | | | JOI POINT OF CARE | [address] | [address] | | | TESTS | | | [...] (H) | 60 - 99 mg/dL | [facility] - | | | GLUCOSE, | | [...] + + + | [facility] | [address] | [place], [place] | | | BABAR TAMEZ OF [facility] | [address] | [address] | | | TESTS | | | [...] | + + + + + | [facility] | [address] | [place] [address] | | | SERVICES, CORE | PARK [...] ELLIE | [address] | [place], [place] | | | BABAR TAMEZ OF TIMUR | [address] | [address] | | | TESTS | | | [...] - ELLIE | [address] | [place], [place] | | | BABAR TAMEZ OF CARE | [facility] | [address] | | | TESTS | | | [...] (H) | 60 - 99 mg/dL | [facility] - | | | GLUCOSE, | | [...] [facility]ET[facility] | [address] | [place] | | | BABAR TAMEZ OF [facility] | [facility] | [address] | | | TESTS | | | [...] ELLIE | [address] | [place], [place] | | | BABAR TAMEZ OF CARE | [address] | [address] | | | TESTS | | | [...] + + + | [facility] | [address] | [place] [address] | | | SERVICES, CORE | PARK [...] [facility] | [address] | [place], [place] | | | JOI [place] OF [facility] | [address] | [address] | | | TESTS | | | [...] + +---------+ + + | [facility] DEPARTMENT | | | | | RADIOLOGY [...] LABORATORY | [address] | [place] [address] | | | SERVICES, | [address] [...] + + + | [facility] | [address] | [place] [address] | | | SERVICES, | [address] [...] LABORATORY | [address] | [place] [address] | | | SERVICES, CORE | PARK [...] [facility] | [address] | [place] [address] | | | SERVICES, NAY | MARY [...] | + + + + + | [facility] | [address] | [place] [address] | | | SERVICES, NAY | MARY [...] | + + + + + | [facility] | [address] | [place] [address] | | | SERVICES, CORE | PARK [...] [facility] | [address] | [place] [address] | | | SERVICES, CORE | PARK [...] + + + | [facility] | [address] | [place] [address] | | | SERVICES, CORE | PARK [...] (H) | 0.90 - 1.20 INR | [facility] | | | | | | LABORATORY [...] [facility] | [address] | [place] [address] | | | SERVICES, CORE | PARK [...] | | | LABORATORY | | | TRISTANIAN | | | SERVICES, | | | [...] the MDRD equation recommended by the | [facility] | | National Kidney Disease Education Program. [...] + + + | [facility] | [address] | [place] [address] | | | [facility] | [address] | | | + [...] - ELLIE | [address] | [place], [place] | | | JOI POINT OF CARE | [address] | [address] | | | TESTS | | | [...] view image for the detailed interpretation from [facility] results. | CARDIOLOGY | + + + + + | Procedure Note | + + | Interface, Cardiology Results - 03/10/2013 7:22 PM PDT Please click on view image | | for the detailed interpretation from [employer] results. | + + + + + + + | Performing | Address | City/State/Zipcode | Phone Number | | Organization | | | | + + + + + | [facility] | [address] | [place], [place] | | | CARDIOLOGY | [address] | [address] | | + + + + + [...] | | | | | | Starting [facility] 03/16/13 at 0859, | | | [...] 13 7:34 | | | | | BASE MANAGER infusion intravenous, | | AM PDT | [...] 13 1:46 | | | | | BASE MANAGER infusion intravenous, | | PM PDT | | | | | CONTINUOUS, Starting [facility] 03/14/13 | | | | | | [...] | | | + +---+ | HYDROmorphone BASE MANAGER infusion 1 | | | dose, Starting [...] | | | | First dose on [facility] 03/16/13 at | | AM PDT | [...] | | | | HOURS NEEDED, Starting [facility] | | PM PDT | | | [...] | | | | | modification) on [facility] 03/16/13 at | | | | [...]
--- OUTSIDE RECORDS SUMMARY | ~2019-08-03 | XMS | Encounter Summary ---
Demographics + + + | Address | [address] | | | [place] [address] | + + + | Home Phone [...] + + + | Author | [facility] | + + + | Organization | [facility] | + + + | Address | [...] Providers + +------+ + | Care Production Consultant Name | Role | Phone | [...] | | | | capsulitis | [address] | | | | | | of right | [address] | | | | | | shoulder | Rd | | | | | | Procedures | [place], [place] | | | | | | PHYSICAL | [address] | | | | | | THERAPY | Phone: | | | | | | REFERRAL | [phone] | | | | | | | Fax: | | | | | | | [phone] | | +--------+--------+ + + + + [...] Park | | | | | | [place] | [address] [place], | | | | | | Health | [place] | | | | | | [place] [address] | [address] | | | | | | | Phone: | | | | | | [place] | [phone] | | | | | | Way [address] | Fax: | | | | | [address] | [phone] | | | | | | [place], | | | | | | | [place] [address] | | | | | | | Phone: | | | | | | | [phone] | | | | | | | Fax: | | | | | | | [phone] | | +--------+--------+ + + + + [...] | Adhesive capsulitis | | | | [place] [facility] | [place], [place] | of right shoulder | | | | and Healing, | [address] | | | | | Building | [phone] | | | | | Floor [place], [place] | | | | | | [address] | | | | | | [phone] | | | +--------+---------+ + + + [...] education: N/A 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 Leroy Treviño MD, [facility](C) [place] Department of Orthopaedics and Rehabilitation [facility] documented in this encounter Plan of Treatment [...]
--- OUTSIDE RECORDS SUMMARY | ~2019-08-03 | XMS | Encounter Summary ---
Demographics + + + | Address | [address] | | | [place] [address] | + + + | Home Phone [...] Team Providers + +------+ + | Care Toolroom Keeper Name | Role | Phone | [...] | | cholecystiti | [address] | | | | | s | [address] | [address] | | | | | | [address] | Mailcode: | | | | | | [place], | [address] | | | | | | [place] [address] | Phsyicians | | | | | | Phone: | [address] | | | | | | [phone] | [place], [place] | | | | | | Fax: | [address] | | | | | | [phone] | Phone: | | | | | | | [phone] | | | | | | | Fax: | | | | | | | [phone] | +--------+--------+ + + + + Encounter [...] [address] | Ventral hernia | | | | [address] | [place], [place] | | | | | Mailcode: L[address]A | [address] | | | | | [facility] | [phone] | | | | | [address] [place], [place] | | | | | | [address] | | | | | | [phone] | | | +--------+---------+ + + + [...] planning of care. Mr. Cisneros presents to [facility] after recent discharge from the inpatient setting in [place]. He had worsening upp er abdominal pain. [...] risks, and benefits. Deandre Austin MD FACS payment processor Division of Trauma, Critical Care, and Acute Care Surgery [id number] Devin Coon MD - 03/10/2013 3:41 PM PDT [facility] EMERGENCY GENERAL SURGERY HISTORY AND PHYSICAL NOTE Patient: Jorge L Cisneros Author: DEVIN GONZALEZ MD Attending Physician: Deandre Austin MD Date of Admission: 03/10/2013 CC: RUQ pain HISTORY OF PRESENT ILLNESS/ INTERVAL UPDATE: Jorge L Cisneros is a 62 y.o. male chronically anticoagulated for antiphospholipid antibody syn drome (hx CVA, RLE DVT), recently discharged from [facility] ([place], [place]) for ac hudson cholecystitis. On 03/06 had sudden onset epigastric pain and self-presented to the hospit al. Gallbladder US showed gallstones and possible acute cholecystitis. The patient eventuall y improved and was discharged for evaluation at [facility] EGS clinic. Prior abdominal surgery inc ludes [...] Daughter lives next door to him. Registered algaaciq member of the [facility]. MEDICATIONS: (Not in a hospital admission) [...] subject to change, based on clinical developments. DEVIN GONZALEZ MD PGY5 TRAUMA EMERGENCY GENERAL SURGERY [facility] S [facility] Mailcode: [address] [place] [address] This assessment and plan was formulated both independently and in conjunction with the Atte nding Surgeon:Deandre Austin MD regarding management of this [...]
--- OUTSIDE RECORDS SUMMARY | ~2019-08-03 | XMS | Encounter Summary ---
Demographics + + + | Address | [address] | | | [place] [address] | + + + | Home Phone | | + + + | Preferred Language | Unknown | + + + | Marital Status | Single | + + + | Hoahaoism Affiliation | 1041 | + + + | Race | Unknown | + + + | Ethnic Group | Unknown | + + + Author + + + | Author | [facility] | | | and [place] | + + + | Organization | [facility] and [facility] | | | and [place] [...] Team Providers + +------+ + | Care Chiropractic Practice Manager Name | Role | Phone | + +------+ + PCP | Unavailable | + +------+ + Encounter Details +--------+ + + + + | Date | Type | Department | Care Team | Description | +--------+ + + + + | 08/19/ | [facility] | [facility] | Ino Neri | | | 2006 | Encounter | MED CTR LABORATORY | MD Amparo [address] | | | | | [address] | [place], [place] | | | | | [place] | [address] | | | | | [address] | | | | | | [phone] | | | +--------+ + + + [...] | 2019 | Visit | | MD Sushli DE | | | | | | [address] | | | | | | [place] [address] | | | | | | [phone] | | | | | | | | +--------+---------+ + + + | 11/26/ | Office | Cardiology | Sissy Noyola | | | 2020 | Visit | | MD Sushil Damon | | | | | | [place] | | | | | | [address] | | | | | | | | +--------+---------+ + + + documented as of this encounter Visit Diagnoses Not on filedocumented in this encounter"
--- OUTSIDE RECORDS SUMMARY | ~2019-08-03 | XMS | Encounter Summary ---
Demographics + + + | Address | [address] | | | [place] [address] | + + + | Home Phone [...] | [facility] | | | and [place] [...] Team Providers + +------+ + | Care Paint And Table Edger Name | Role | Phone | + [...] [place] | | | | | | [address] | (Fax) | | | | | [...] | | | | | [place] [address] | | | | | | [phone] | | | | | | | | +--------+---------+ + + + | 11/26/ | Office | Cardiology | Tray Noyolabubba | | | 2019 | Visit | | MD Marisol [address] | | | | | | [place] | | | | | | [address] | | | | | | | | +--------+---------+ + + + documented as of this encounter Procedures + +--------+ + + + | Procedure Name | Priori | Date/Time | Associated Diagnosis | Comments | | | ty | | | | + +--------+ + + + | CT CERVICAL SPINE WO | Routin | 01/06/2017 | | Results for this | | CONTRAST | e | 8:26 PM | | procedure are in the | | | | PDT | | results section. | + +--------+ + + + documented in this encounter Results CT Cervical Spine wo Contrast (01/06/2017 8:26 PM PDT) + + | Specimen | [...]
--- OUTSIDE RECORDS SUMMARY | ~2019-08-03 | XMS | Encounter Summary ---
Demographics + + + | Address | [address] | | | [place] [address] | + + + | Home Phone [...] + + + | Author | [facility] | + + + | Organization | [facility] | + + + [...] Team Providers + +------+ + | Care Machine Turner Name | Role | Phone | [...] | Orthopaedics at | Henrietta Ayl, | Other specified | | 2012 | Visit | [address] | [address] | pre-operative | | | | [address] | | examination (Primary | | | | Mailcode: PV430 | | Dx) | | | | Physician's Pavilion | | | | | | [place], [place] | | | | | | [address] | | | | | | [phone] | | | +--------+---------+ + + + [...] surgeries scheduled to take place on the moline at the [facility]: Surgeries scheduled in the [facility] ([address] [place] [address]): registration is located on the 4th floor of [facility] (Day Surgery). Surgeries scheduled in the [facility]: registration is located on the 9th floor. Surgeries scheduled in [facility]: registration is located on the 6th floor. Surgeries scheduled in the [facility]: registration is located i n the [facility] on the first floor. For surgeries scheduled to take place at the [facility]: registration is l [...] you use specialized medical equipment at h [facility], please check with your provider before bringing [...] be ancef - DVT risk: High Per [facility] notes: Because this patient meets criteria [...] *PT DOES NOT WANT TO RETURN TO [facility]* - A PARQ session was held, additional [...] L Cisneros : 1950 Pt's Phone numbers: [phone] (home) Date of Surgery: 03/14/2013 Thank you [...] Prong While a brief stay at a fdc facility may not be likely, we still recommend that you or someone you trust tour several fdc facilities in the area you would like to be prior or your admission, so that if a skilled facility is the discharge recommendatio n post operatively, the transition can progress in a more smooth and timely manner. If a fdc facility stay is recommended at discharge, please [...] note that the [facility] Clinical Administrative Coordinator will fill out and submit a medical [...] with him who can help him and housekeeper child care will check adolfo y Are there any [...]
--- OUTSIDE RECORDS SUMMARY | ~2019-08-03 | XMS | Encounter Summary ---
Demographics + + + | Address | [address] | | | [place] [address] | + + + | Home Phone [...] + + + | Author | [facility] | + + + | Organization | [facility] | + + + | Address [...] Team Providers + +------+ + | Care Nuisance Wildlife Specialist Name | Role | Phone | [...] [address] | | | | | | [place], [place] | | | | | | [address] | | | +--------+ + + + [...]
--- OUTSIDE RECORDS SUMMARY | ~2019-08-03 | XMS | Encounter Summary ---
Demographics + + + | Address | [address] | | | [place] [address] | + + + | Home Phone [...] Providers + +------+ + | Care Telephone Plant Power Operator Name | Role | Phone | + +------+ + | Scooby Mcclure MD | PCP | | + +------+ + Encounter Details +--------+ + + + + | Date | Type | Department | Care Team | Description | +--------+ + + + + | 02/24/ | Document-Sc | Health Information | Unknown . | | | 2018 | anned | Services [address] | | | | | | [address] | | | | | | Mailcode: OP17A | | | | | | [facility] | | | | | | [place], [place] | | | | | | [address] | | | | | | [phone] | | | +--------+ + + + [...]
--- OUTSIDE RECORDS SUMMARY | ~2019-08-03 | XMS | Encounter Summary ---
Demographics + + + | Address | [address] | | | [place] [address] | + + + | Home Phone [...] + + + | Author | [facility] | | | and [place] | + + + | Organization | [facility] | | [...] Team Providers + +------+ + | Care Hospital Chaplain Name | Role | Phone | + +------+ + PCP | Unavailable | + +------+ + Encounter Details +--------+ + + + + | Date | Type | Department | Care Team | Description | +--------+ + + + + | 02/15/ | Hospital | [facility] GENER[facility] IP | Conversion | Neck pain | | 2017 | Encounter | CONVERSION [address] | Transaction, | | | | | [address] | Provider Unknown | | | | | [place] | | | | | | [address] | (Fax) | | | | | [phone] | | | +--------+ + + + [...] | | | | | [place] [address] | | | | | | [phone] | | | | | | | | +--------+---------+ + + + | 11/26/ | Office | Cardiology | Sissy Noyola | | | 2019 | Visit | | MD Marisol [address] | | | | | | [place] | | | | | | [address] | | | | | | | [...]
--- OUTSIDE RECORDS SUMMARY | ~2019-08-03 | XMS | Encounter Summary ---
Demographics + + + | Address | [address] | | | [place] [address] | + + + | Home Phone [...] + + + | Author | [facility] | | | and [place] | + + + | Organization | [facility] and [facility] | | | and [...] Team Providers + +------+ + | Care Overseer Kosher Kitchen Name | Role | Phone | + +------+ + PCP | Unavailable | + +------+ + Encounter Details +--------+ + + + + | Date | Type | Department | Care Team | Description | +--------+ + + + + | 07/22/ | Hospital | [facility] | | | | 2006 | Encounter | MED CTR XRAY [address] | | | | | | [address] | | | | | | [place] [address] | | | | | | [phone] | | | +--------+ + + + [...] [address] | | | | | | [place] [address] | | | | | | [phone] | | | | | | | | +--------+---------+ + + + | 11/26/ | Office | Cardiology | Sissy Noyola | | | 2020 | Visit | | MD Marisol [address] | | | | | | [place] | | | | | | [address] | | | | | | | | +--------+---------+ + + + documented as of this encounter Visit Diagnoses Not on filedocumented in this encounter"
--- OUTSIDE RECORDS SUMMARY | ~2019-08-03 | XMS | Encounter Summary ---
Demographics + + + | Address | [address] | | | [place] [address] | + + + | Home Phone [...] Team Providers + +------+ + | Care Contracting Officer Name | Role | Phone | + +------+ + | Gracie Mariano MD | PCP | | + +------+ + Encounter Details +--------+ + + + + | Date | Type | Department | Care Team | Description | +--------+ + + + + | 11/10/ | Hospital | Radiology/Imaging | | | | 2015 | Encounter | Lab at [facility] [address] | | | | | | João Myrick Mailcode: | | | | | | [facility] | | | | | | Health and Healing, | | | | | | [facility] 1, 3rd | | | | | | Floor [place], [place] | | | | | | [address] | | | | | | [phone] | | | +--------+ + + + [...]
--- OUTSIDE RECORDS SUMMARY | ~2019-08-03 | XMS | Encounter Summary ---
Demographics + + + | Address | [address] | | | [place] [address] | + + + | Home Phone [...] | | | | | [place], | | | | | | [place] [address] | | | +--------+ + + + [...]
--- OUTSIDE RECORDS SUMMARY | ~2019-08-03 | XMS | Encounter Summary ---
Demographics + + + | Address | [address] | | | [place] [address] | + + + | Home Phone [...] Team Providers + +------+ + | Care Mason Liner Name | Role | Phone | + [...] | Rheumatology | Diagnoses | Scott | [facility] | | | | | Ankylosing | MD Adriano | [address] | | | | | spondylitis | [address] | [place] | | | | | ([facility]) | Ave | Loop | | | | | Procedures | [place], [place] | Mailcode: | | | | | CONSULT TO | [address] | OP09 | | | | | RHEUMATOLOGY | | Physician's | | | | | | | [address], [address]th | | | | | | | Floor | | | | | | | [place], [place] | | | | | | | [address] | | | | | | | Phone: | | | | | | | [phone] | | | | | | | Fax: | | | | | | | [phone] | +--------+--------+ + + + + Reason [...] | | (HCC) | [place], [place] | [place], [place] | | | | | diarrhea | [address] | [address] | | | | | eval | Phone: | | | | | | | [phone] | | | | | | | Fax: | | | | | | | [phone] | | +--------+--------+ + + + + Encounter Details +--------+---------+ + + + | Date | Type | Department | Care Team | Description | +--------+---------+ + + + | 11/20/ | Office | Digestive Health | Adriano Chavez, | Ankylosing | | 2014 | Visit | Center at [facility] [address] | MD | spondylitis (HCC) | | | | [address] | | (Primary Dx); | | | | Mailcode: Center | | Nonspecific | | | | for Health and | | elevation of levels | | | | Healing, [address] | | of transaminase or | | | | [place], [place] | | lactic acid | | | | [address] | | dehydrogenase (LDH); | | | | [phone] | | Diarrhea; Ulcer of | | [...] m the original. Inflammatory Bowel Disease Clinic [facility] ~ Initial Consultation Referring Physician: Harinder [...] -colorectal anastomosis at 32cm BIOPSIES (review at [facility]): colonic mucosal with surface hyperplastic changes Colonoscopy 01/07/12 ([facility]) -hyperplastic ulcerated lesion in proximal right colon/ileocecal valve -left-sided diverticulosis -lwzl-wu-mvnw colorectal anastomosis at 38cm BIOPSIES (review at [facility]): mildly increased lamina propria eosinophils (not sufficient for diagnosis of adenomatous change) Colonoscopy 12/28/12 ([facility]) -ulcerated ICV (previous Bx with hyperplastic [...] | | + +---------+ + + | [facility] DEPARTMENT OF | | | | [...]
--- OUTSIDE RECORDS SUMMARY | ~2019-08-03 | XMS | Encounter Summary ---
Demographics + + + | Address | [address] | | | [place] [address] | + + + | Home Phone [...] + + | Author | [facility] | + + + | Organization | [facility] | + + + | [...] Providers + +------+ + | Care Physician Representative Name | Role | Phone | [...] | Pavilion | | | | | ([facility]) | [address] | Loop | | | | | Procedures | [place], | Mailcode: | | | | | CONSULT TO | [place] [address] | OP09 | | | | | RHEUMATOLOGY | Phone: | Physician's | | | | | | [phone] | [address] | | | | | | Fax: | Floor | | | | | | [phone] | [place], [place] | | | | | | | [address] | | | | | | | Phone: | | | | | | | [phone] | | | | | | | Fax: | | | | | | | [phone] | +--------+--------+ + + + + Encounter Details +--------+---------+ + + + | Date | Type | Department | Care Team | Description | +--------+---------+ + + + | 03/08/ | Office | Rheumatology at | Carole Hearn, | Ankylosing | | 2013 | Visit | Physicians [place] | [address] | spondylitis (HCC) | | | | [address] | [address] | (Primary Dx) | | | | Loop Mailcode: PV35 | [place], [place] | | | | | Physician's | [address] | | | | | [place] [address], | [phone] | | | | | [place] [address] | | | | | | [phone] | | | +--------+---------+ + + + [...] assessmen t and plan. Celina Soto M.D. [facility] Mailcode: Pv35 [facility] [address] Carole Winchester MD - 5:30 PM PDT RHEUMATOLOGY FOLLOW UP-03/05 Last visit 12/04 CC: Chief Complaint Patient presents with Ankylosing spondylitis HPI: This is a 62 y.o. male, here for follow up of ankylosing spondylitis. -Diagnosed with in late ' in [place] by his PCP, but was never referred [...] se refer to patient queationnaire scanned in [facility] PMH: Past Medical History Diagnosis Date [...] OTHER THAN NECK, BACK, OR HIPS: 8.0 ( 1100) OVERALL LEVEL OF DISCOMFORT FROM AREAS TENDER TO TOUCH OR PRESURE: 5.5 (03/08/14 1100 ) OVERALL LEVEL OF MORNING STIFFNESS FROM TIME OF WAKING : 7.5 (03/08/14 1100) DURATION OF MORNING STIFFNESS: 10.0 (03/08/141099) BASDAI SCORE: 7.35 (03/08/14 1100) Exam: Vital Signs: BP 130/70 | Pulse [...] Value Date ESR 18 05/16/2013 Colonoscopy 12/28/12 ([facility]) -ulcerated ICV (previous Bx with hyperplastic [...] bilateral hip arthrop athy and probable erosions [place] PELVIS 1 VIEW, 05/10/12 There has been [...] Soto who agrees with assessment and plan CAROLE HEARN MD RHEUMATOLOGY FELLOWS [facility] Mailcode: Pv35 [place] [address] documented in this en counter Plan of Treatment Not on filedocumented as of this encounter Visit Diagnoses + + | Diagnosis | + + | Ankylosing spondylitis (HCC) - Primary Ankylosing spondylitis | + + documented in this encounter
--- OUTSIDE RECORDS SUMMARY | ~2019-08-03 | XMS | Encounter Summary ---
Demographics + + + | Address | [address] | | | [place] [address] | + + + | Home Phone [...] Team Providers + +------+ + | Care Cell Biology Scientist Name | Role | Phone | + +------+ + | rGacie Mariano MD | PCP | | + +------+ + Encounter Details +--------+ + + + + | Date | Type | Department | Care Team | Description | +--------+ + + + + | 05/06/ | Telephone | Orthopaedics at | Jorge Walker MD | | | 2011 | | [address] | [address] [facility] | | | | | [address] | [address] | | | | | Mailcode: PV430 | [place], [place] | | | | | Physician's [place] | [address] | | | | | [place], [place] | [phone] | | | | | [address] | | | | | | [phone] | | | +--------+ + + + [...]
--- OUTSIDE RECORDS SUMMARY | ~2019-08-03 | XMS | Encounter Summary ---
Demographics + + + | Address | [address] | | | [place] [address] | + + + | Home Phone | | + + + | Preferred Language | Unknown | + + + | Marital Status | Single | + + + | Hinduism Affiliation | 1041 | + + + | Race | Unknown | + + + | Ethnic Group | Unknown | + + + Author + + + | Author | [facility] | | | and [place] | + + + | Organization | [facility] | | | and [place] | [...] Team Providers + +------+ + | Care Machining Associate Name | Role | Phone | [...] [place] | | | | | | [address] | (Fax) | | | | | [...] | | | | | [place] [address] | | | | | | [phone] | | | | | | | | +--------+---------+ + + + | 11/26/ | Office | Cardiology | Tray Noyolabubba | | | 2019 | Visit | | MD Marisol [address] | | | | | | [place] | | | | | | [address] | | | | | | | [...]
--- OUTSIDE RECORDS SUMMARY | ~2019-08-03 | XMS | Encounter Summary ---
Demographics + + + | Address | [address] | | | [place] [address] | + + + | Home Phone | | + + + | Preferred Language | Unknown | + + + | Marital Status | Single | + + + | Buddhism Affiliation | BAP | + + + | Race | or | + + + | Ethnic Group | Not or | + + + Author + + + | Author | [facility] | + + + | Organization | [facility] | + + + | Address [...] Providers + +------+ + | Care Computer Programming Manager Name | Role | Phone | + +------+ + | Gracie Mariano MD | PCP | | + +------+ + Encounter Details +--------+ + + + + | Date | Type | Department | Care Team | Description | +--------+ + + + + | 11/10/ | Hospital | Radiology/Imaging | | Canceled (Scheduling | | 2015 | Encounter | Lab at [facility] [address] | | error) | | | | [address] Mailcode: | | | | | | [facility] | | | | | | Health and Healing, | | | | | | [place] [address] [facility] | | | | | | [place], [place] | | | | | | [address] | | | | | | [phone] | | | +--------+ + + + [...] | | | | | | MATT MDAuthor: | | | | | | [place] [...] | | + +---------+ + + | [facility] DEPARTMENT OF | | | | | RADIOLOGY | | | | + +---------+ + + documented in this encounter Visit Diagnoses + + | Diagnosis | + + | Right shoulder pain, unspecified chronicity | + + documented in this encounter"
--- OUTSIDE RECORDS SUMMARY | ~2019-08-03 | XMS | Encounter Summary ---
Demographics + + + | Address | [address] | | | [place] [address] | + + + | Home Phone | | + + + | Preferred Language | Unknown | + + + | Marital Status | Single | + + + | Tenriism Affiliation | 1041 | + + + | Race | Unknown | + + + | Ethnic Group | Unknown | + + + Author + + + | Author | [facility] | | | and [place] | + + + | Organization | [facility] | | [...] Team Providers + +------+ + | Care Numerical Control Tool Programmer Name | Role | Phone | + +------+ + PCP | Unavailable | + +------+ + Encounter Details +--------+ + + + + | Date | Type | Department | Care Team | Description | +--------+ + + + + | 03/01/ | Hospital | [facility] | Conversion | Syncope and | | 2019 | Encounter | [facility]ICAL CENTER | Transaction, | collapse; Exertional | | | | CLINICAL DECISION | Provider Unknown | chest pain; | | | | [address] [facility] | | Coronary artery | | | | [place], [place] | (Fax) | disease of [place] | | | | [address] | Sissy Noyola, | artery of [place] | | | | [phone] | MD [address] | heart with stable | | | | | [place] | angina pectoris | | | | | [address] | (HCC) | | | | | [...] 03/01/192099 Date of Service: 03/01/192055 Status: Signed Head Of Precision Targeting: Anabel Dozier RN (Registered Nurse) Discharge instructions [...] | | | | | [place] [address] | | | | | | [phone] | | | | | | | | +--------+---------+ + + + | 11/26/ | Office | Cardiology | Sissy Noyola | | | 2019 | Visit | | MD Marisol [address] | | | | | | [place] | | | | | | [address] | | | | | | | [...] | | | Fingerstick | performed at [facility];[address] | | LAB | | | | [address];[place], [place] | | | | | | [address] | | | | + + + [...] EXTERNAL | | | | performed at [facility];[address] | | LAB | | | | Jose Daugherty;[place] | | | | | | [address] | | | | + + + [...] | | | | | performed at [facility];[address] | | | | | | [facility];[place], [place] | | | | | | [address] | | | | + + + [...] | | | Basophils | performed at [facility];[address] | [address] | LAB | | | | [place] [address];[place] | | | | | | [address] | | | | + + + [...] | | | Cholesterol | performed at [facility], [address] | | LAB | | | , | Josie [address]augherty, | | | | | Calculated, | [place] [address] | | | | | External | [...] | | | | | performed at [facility];[address] | | | | | | [facility];[place], [place] | | | | | | [address] | | | | + + + [...] + + | Coronary artery disease of [place] artery of [place] heart with stable angina pectoris | | (HCC) | + + documented in this encounter
--- OUTSIDE RECORDS SUMMARY | ~2019-08-03 | XMS | Encounter Summary ---
Demographics + + + | Address | [address] | | | [place] [address] | + + + | Home Phone [...] + + + | Author | [facility] | + + + | Organization | [facility] | + + + | [...] Team Providers + +------+ + | Care Loan Operations Specialist Name | Role | Phone | [...] Vang | | | | | [facility] | [address] | | | | | Hospital Admitting | [place], [place] | | | | | Desk Located on the | [address] | | | | | 9th floor | [phone] | | | | | [place], [place] | | | | | | [address] | Juancarlos Cruz CRNA | | | | | | [address] | | | | | | [facility] | | | | | | [place] [address] | | | | | | [phone] | | | | | | | [...]
--- OUTSIDE RECORDS SUMMARY | ~2019-08-03 | XMS | Encounter Summary ---
Demographics + + + | Address | [address] | | | [place] [address] | + + + | Home Phone [...] Team Providers + +------+ + | Care Gas Plant Repairer Name | Role | Phone | + +------+ + | Gracie Mariano MD | PCP | | + +------+ + Encounter Details +--------+ + + + + | Date | Type | Department | Care Team | Description | +--------+ + + + + | 04/03/ | One Piece Expansion Maker Hand | Digestive Health | Harinder Felton, | Other specified | | 2012 | | Center at [facility] [address] | MD [address] | disorder of | | | | [address] | [place] [address] | peritoneum (Primary | | | | Mailcode: Center | [phone] | Dx) | | | | for Health and | | | | | | Healing, Building [address] | | | | | | [place], [place] | | | | | | [address] | | | | | | [phone] | | | +--------+ + + + [...] | | | | | | Institution: [facility] | | | | | | [facility], | | | | | | [place] [facility], | | | | | | [place] | | | | | | [id number] | | | | | | Accession Number: | | | | | | [id number] | | | | | | Collection Date: | | | | | | 10/22/2011H&E | | | | | | 1Specimen | | | | | | BOutside Accession | | | | | | Number: [id number] | | | | | | Collection Date: | | | | | | 01/07/2012H&E | | | | | | 1 | | | | | | Additional Materials | | | | | | Received: | | | | | | (12/01/2012)Referring | | | | | | Institution: [facility] | | | | | | [facility], | | | | | | [facility], | | | | | | [place] | | | | | | [id number] AOutside | | | | | | Accession Number: | | | | | | [id number] | | | | | | Collection Date: | | | | | | 10/22/2011lock | | | | | | 1Specimen BOutside | | | | | | Accession Number: | | | | | | [id number] | | | | | | Collection Date: | | | | | | 01/07/2012H&E 1 | | | | | | Final Pathologic | | | | | | Diagnosis:A: Ileocecal | | | | | | valve, biopsy ([facility] | | | | | | [facility], | | | | | | [id number],10/22/2011): | | | | | | - Colonic mucosa | | | | | | with surface | | | | | | hyperplastic changes | | | | | | B: Colon, proximal | | | | | | right, biopsy ([facility] | | | | | | [facility], | | | | | | [id number],01/07/2012):- | | | | | | Colonic [...] | + + + + + | [facility] | [address] | [place] [address] | | | PATHOLOGY | [address] | | | + + + + + documented in this encounter Visit Diagnoses + + | Diagnosis | + + | Other specified disorder of peritoneum - Primary | + + documented in this encounter"
--- OUTSIDE RECORDS SUMMARY | ~2019-08-03 | XMS | Encounter Summary ---
Demographics + + + | Address | [address] | | | [place] [address] | + + + | Home Phone [...] Providers + +------+ + | Care Public Health Technician Name | Role | Phone | [...] evaluation | | 2012 | cheduled | Medicine Clinic at | | | | | | MPV | | | | | | Stay [address] | | | | | | [address] | | | | | | Mailcode: [id number] | | | | | | [facility] | | | | | | [address] [place], [place] | | | | | | [address] | | | | | | [phone] | | | +--------+ + + + [...] + | RETIRE | 12/28/12; 1256; 12/28/12; 2850; | 12/28/12 1256 by | 12/28/12 1550 [...] water on the morning of surgery: LEVOTHYROXINE 50 MCG TABLET METOPROLOL TARTRATE 25 MG [...] drugs for 24 hours before your surgery Do not eat any hard candy or chew gum after midnight the night before your surgery. Watch for any change in your health condition. Let your surgeon know right away if you do not feel well. Do not wear makeup, perfume, lotions or powder. Remove any nail kinyarwanda from at least one fingernail. Do not [...] Stay Unit Bianca [address]ett, fourth floor Room 0861 Surgery Check in Time: Someone from your surgeon's office or [facility] will provide you with information regarding [...] it is after office hours, call the [facility] digital pre press operator at [phone] and ask them to page your doc tor. documented in this encounter Plan of Treatment Not on filedocumented as of this encounter Visit Diagnoses Not on filedocumented in this encounter"
--- OUTSIDE RECORDS SUMMARY | ~2019-08-03 | XMS | Encounter Summary ---
Demographics + + + | Address | [address] | | | [place] [address] | + + + | Home Phone [...] Providers + +------+ + | Care Environmental Health And Safety Leader Name | Role | Phone | [...] at | | | | | | [facility] 4th Floor [address] | | | | | | [address] | | | | | | Mailcode: CH4S | | | | | | [facility] | | | | | | and Zack, | | | | | | [facility] 1,4th Floor | | | | | | [place], [place] | | | | | | [address] | | | | | | [phone] | | | +--------+ + + + [...]
--- OUTSIDE RECORDS SUMMARY | ~2019-08-03 | XMS | Encounter Summary ---
Demographics + + + | Address | [address] | | | [place] [address] | + + + | Home Phone | | + + + | Preferred Language | Unknown | + + + | Marital Status | Single | + + + | Pentecostal Affiliation | 1041 | + + + | Race | Unknown | + + + | Ethnic Group | Unknown | + + + Author + + + | Author | [facility] | | | and [place] | + + + | Organization | [facility] | | | [...] Team Providers + +------+ + | Care Co Founder And Chief Strategy Officer Name | Role | Phone | [...] | | | | [place] | [phone] | | | | | [address] | | | | | | [phone] | | | +--------+ + + + [...] | | | | | [place] [address] | | | | | | [phone] | | | | | | | | +--------+---------+ + + + | 11/26/ | Office | Cardiology | Sissy Noyola | | | 2020 | Visit | | MD Sushil Damon | | | | | | [place] | | | | | | [address] | | | | | | | | +--------+---------+ + + + documented as of this encounter Visit Diagnoses Not on filedocumented in this encounter"
--- OUTSIDE RECORDS SUMMARY | ~2019-08-03 | XMS | Encounter Summary ---
Demographics + + + | Address | [address] | | | [place] [address] | + + + | Home Phone [...] Providers + +------+ + | Care Customer Care Associate Name | Role | Phone | [...] | | | | | [place] | | | | | | [place] [address] | | | +--------+--------+ + + + [...]
--- OUTSIDE RECORDS SUMMARY | ~2019-08-03 | XMS | Encounter Summary ---
Demographics + + + | Address | [address] | | | [place] [address] | + + + | Home Phone [...] Team Providers + +------+ + | Care Paper Cutter Name | Role | Phone | [...] + + | 12/28/ | Hospital | [facility] [address] | Harinder Fel[place], | | | 2012 | Encounter | [address] | [address] | | | | | [facility] | [place] [address] | | | | | [address] | [phone] | | | | | ([facility]) | | | | | | [place], [place] | | | | | | [address] | | | | | | [phone] | | | +--------+ + + + [...] Discharge Instructions Instructions Anabel Priest RN - 12/28/2012[place] Care Instructions after Colonoscopy You may resume [...] Wednesday 8:00- 4:30 Endoscopy Toll free ext: [phone] or After business hours, or on weekends and holidays call the Hospital [facility]str[facility] Bi Developer Toll Free 1 [phone] Ext. [phone] or and have the GI doctor isolation washer paged. The provider who performed your procedure [...] | + + + + + | [facility] [employer] - | [address] | [place] [address] | | | [place] | | | | + + + [...] - ELLIE | [address] | [place], [place] | | | [facility] | [facility] | [address] | | | TESTS | | | [...] [facility] | [address] | [place] [address] | | | SERVICES, CORE | [address] [...] | | | LABORATORY | | | [place] | | | SERVICES, | | | [...] + + + + + | [facility] | [address] | [place] [address] | | | SERVICES, [facility] | [address] | | | + [...] | + + + + + | [facility] | [address] | [place] [address] | | | PATHOLOGY | [address] [...]
--- OUTSIDE RECORDS SUMMARY | ~2019-08-03 | XMS | Encounter Summary ---
Demographics + + + | Address | [address] | | | [place] [address] | + + + | Home Phone [...] Team Providers + +------+ + | Care Bonus Clerk Name | Role | Phone | [...] [address] | | | | | | [place], [place] | | | | | | [address] | | | | | | [phone] | | | +--------+ + + + [...]
--- OUTSIDE RECORDS SUMMARY | ~2019-08-03 | XMS | Encounter Summary ---
Demographics + + + | Address | [address] | | | [place] [address] | + + + | Home Phone [...] Team Providers + +------+ + | Care Septic Pump Truck Driver Name | Role | Phone | + +------+ + | Gracie Mariano MD | PCP | | + +------+ + Encounter Details +--------+ + + + + | Date | Type | Department | Care Team | Description | +--------+ + + + + | 11/29/ | Telephone | Digestive Health | Adriano Chavez, | | | 2013 | | [place] [address] [address] | | | | | | [address] | | | | | | Mailcode: [place] | | | | | | [facility] Health and | | | | | | [facility] [address] | | | | | | [place], [place] | | | | | | [address] | | | | | | [phone] | | | +--------+ + + + [...]
--- OUTSIDE RECORDS SUMMARY | ~2019-08-03 | XMS | Encounter Summary ---
Demographics + + + | Address | [address] | | | [place] [address] | + + + | Home Phone [...] Team Providers + +------+ + | Care Hide Shaker Name | Role | Phone | + [...] + + | 02/01/ | [facility]ati | [facility] | Lab, Gi Procedure | Medical Records | | 2011 | on | [address] | | Review | | | | [address] Mailcode: | | | | | | OC[facility]L [facility] | | | | | | Health and Healing, | | | | | | Building [address] | | | | | | [place], [place] | | | | | | [address] | | | | | | [phone] | | | +--------+ + + + [...]
--- OUTSIDE RECORDS SUMMARY | ~2019-08-03 | XMS | Encounter Summary ---
Demographics + + + | Address | [address] | | | [place] [address] | + + + | Home Phone | | + + + | Preferred Language | Unknown | + + + | Marital Status | Single | + + + | Zoroastrianism Affiliation | 1041 | + + + [...] [facility] | | | and [place] [...] + + | 05/18/ | Refill | [facility] | Sissy Noyola | Medication Refill | | 2018 | | [place] | MD [address] | | | | | [address] | [address] [facility] [place] [place] | | | | | [place], [place] | [address] | | | | | [address] | | | | | | [phone] | | | +--------+--------+ + + + [...] | | | | | [place] [address] | | | | | | [phone] | | | | | | | | +--------+---------+ + + + | 11/26/ | Office | Cardiology | Sissy Noyola | | | 2019 | Visit | | MD [address]ush[address] DamonETHALS | | | | | | [place] | | | | | | [address] | | | | | | | | +--------+---------+ + + + documented as of this encounter Visit Diagnoses Not on filedocumented in this encounter"
--- OUTSIDE RECORDS SUMMARY | ~2019-08-03 | XMS | Encounter Summary ---
Demographics + + + | Address | [address] | | | [place] [address] | + + + | Home Phone [...] + + + | Author | [facility] | + + + | Organization | [facility] | + + + | [...] Team Providers + +------+ + | Care Rollway Man Name | Role | Phone | [...] | | 2012 | on | [address] | | ([place] | | | | [address] | | pancreatitis) | | | | Mailcode: [id number] | | | | | | [facility] | | | | | | [address] [place], | | | | | | [place] [address] | | | | | | [phone] | | | +--------+ + + + [...]
--- OUTSIDE RECORDS SUMMARY | ~2019-08-03 | XMS | Encounter Summary ---
Demographics + + + | Address | [address] | | | [place] [address] | + + + | Home Phone | | + + + | Preferred Language | Unknown | + + + | Marital Status | Single | + + + | Religion Affiliation | 1041 | + + + | Race | Unknown | + + + | Ethnic Group | Unknown | + + + Author + + + | Author | [facility] | | | and [place] | + + + | Organization | [facility] | | | and [...] Team Providers + +------+ + | Care Wharf Tender Helper Name | Role | Phone | [...] + + | 05/16/ | Refill | [facility] | Sissy Noyola | Medication Refill | | 2019 | | FABIO [address]ELDER | MD [address] | | | | | [address] | [address] [facility] | | | | | [place], [place] | [address] | | | | | [address] | | | | | | [phone] | | | +--------+--------+ + + + [...] | | | | | [place] [address] | | | | | | [phone] | | | | | | | | +--------+---------+ + + + | 11/26/ | Office | Cardiology | Sissy Noyola | | | 2019 | Visit | | MD Sushil DamonETHALS | | | | | | [place] | | | | | | [address] | | | | | | | | +--------+---------+ + + + documented as of this encounter Visit Diagnoses Not on filedocumented in this encounter"
--- OUTSIDE RECORDS SUMMARY | ~2019-08-03 | XMS | Encounter Summary ---
Demographics + + + | Address | [address] | | | [place] [address] | + + + | Home Phone [...] + + + | Author | [facility] | + + + | Organization | [facility] | + + + | [...] Team Providers + +------+ + | Care Diesel Service Apprentice Name | Role | Phone | [...] | | | Loop Mailcode: [id number] | [place], [place] | | | | | Physician's | [address] | | | | | [place], | [phone] | | | | | [place] [address] | | | | | | [phone] | | | +--------+ + + + [...]
--- OUTSIDE RECORDS SUMMARY | ~2019-08-03 | XMS | Encounter Summary ---
Demographics + + + | Address | [address] | | | [place] [address] | + + + | Home Phone | | + + + | Preferred Language | Unknown | + + + | Marital Status | Single | + + + | Mandaen Affiliation | 1041 | + + + | Race | Unknown | + + + | Ethnic Group | Unknown | + + + Author + + + | Author | [facility] | | | and [place] | + + + | Organization | [facility] | | [...] Team Providers + +------+ + | Care Inside Polisher Name | Role | Phone | + +------+ + PCP | Unavailable | + +------+ + Encounter Details +--------+ + + + + | Date | Type | Department | Care Team | Description | +--------+ + + + + | 02/15/ | Hospital | [facility] | Conversion | Neck pain | | 2017 | Encounter | CONVERSION DEP [address] | Transaction, | | | | | RAYMOND SCHMITT | Provider Unknown | | | | | [place] | | | | | | [address] | (Fax) | | | | | [phone] | | | +--------+ + + + [...] | | | | | [place] [address] | | | | | | [phone] | | | | | | | | +--------+---------+ + + + | 11/26/ | Office | Cardiology | Sissy Noyola | | | 2019 | Visit | | MD [address] | | | | | | [place] | | | | | | [address] | | | | | | | [...]
--- OUTSIDE RECORDS SUMMARY | ~2019-08-03 | XMS | Encounter Summary ---
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 JORGE SMART MD [facility] Mailcode: [id number] [facility] [phone] nder [place] MD - 04/28/2012 3:53 PM [...]
--- OUTSIDE RECORDS SUMMARY | ~2019-08-03 | XMS | Encounter Summary ---
Demographics + + + | Address | [address] | | | [place] [address] | + + + | Home Phone [...] Team Providers + +------+ + | Care Investigation Clerk Name | Role | Phone | [...] Closed | | Physical | Diagnoses | Crafts, | | | | | Therapy | Closed | Glenda Hodge PA-C | | | | | | displaced | [address] | | | | | | fracture of | [place] | | | | | | second | [address] | | | | | | cervical | [address] | | | | | | vertebra, | [facility] [place] | | | | | | unspecified | [address] | | | | | | fracture | Phone: | | | | | | morphology, | [phone] | | | | | | initial | Fax: | | | | | | encounter | [phone] | | | | | | ([facility]) | | | | | | | [...] + + | 02/15/ | Hospital | [facility] [address] | Ino Guardado, | | | 2018 - | Encounter | [address] | [address] | | | | | [id number] [facility] | [place], [place] | | | 02/22/ | | [facility], | [address] | | | 2018 | | [place] [address] | [phone] | | | | | [phone] | | | | | | | Deandre Austin MD | | | | | | [address] | | | | | | [address] | | | | | | [place], [place] | | | | | | [address] | | | | | | [phone] | | | | | | | [...] be expected to seek care from your [facility] care provider. If you [...] able to renew opioid prescriptions in a fvjz-cn-camh clinic visit. Our clinic sees patients on [...] week. Specialty: Family Medicine Why: follow up [facility] Contact information [facility] [address] [place] [address] Trauma Center at [facility]. Specialty: Trauma Center Why: As needed Contact information [facility] [facility] Mailcode: L223a [facility] [address] [facility] [address] Additional information: The [facility] is the building just past [facility]. Turn ri ght immediately past the Pavilion. The entrance to garage B will be on your right just beyon d the main doors to the Pavilion. An elevator in the parking garage will take patients direc tly to the floor of the clinic. The Trauma Clinic is located on the 2nd floor, [address]. Pl ease check in at the front end specialist. Maps and directions can be found at [email or web address] .cfm Vitals on discharge: Ht 1.778 m (5' 10"), Wt 114.5 kg (252 lb 6.8 oz), BP 167/52, Pulse 69, Temperature 36.6 C (97.9 F), RR 16, SpO2 100%, BMI 36.22 kg/(m^2). Outstanding labs/studies: None Discharging Physician: David Anderson MD Attending Physician: Deandre Austin MD Associated attestation - Familia Early MD - 02/23/2018 9:15 AM PDTAttending: I saw and examined Jose Rafael Cisneros ([id number]) with the residents on 02/22/2018 and agree with the assessment and plan as outlined in this discharge summary. Familia Early MD Equipment Cleaner And Tester Trauma, Critical Care & Acute Care Surgery [...] doctor if you can take an o tqb-esd-ueqojkk medicine. Follow your doctor's directions for returning [...] "Broken Neck: Care Instructions", log into your [employer] [employer] account at [email or web address] :[email or web address]. You can enter U000 in the "Plan Me Up" search box. Not on [address]? Review the [employer] [address] [employer] section of your After Visit Summary for directions on ho w to sign up. Current as of: November 10, 2016 Content Version: [id number] [employer]. Care instructions adapted under license by [facility] [employer] & [facility]. If you have questions about a medical condition or this instr uction, always ask your healthcare professional. [employer] disclaims any lakhwinder anty or liability for your use of this information. AttachmentsThe following attachments cannot be sent through Care Everywhere.Cervical Spinal Fusion: Post-op (Danish)DVT (Deep Vein Thrombosis) (Danish)documented in this encounter Medications at Time of Discharge + + + +---------+ + + | Medication | Sig | Dispensed | Refills | Start | End Date | | | | | | Date | | + + + +---------+ + + | acetaminophen 500 | Take 2 tablets by | 30 | 0 | 02/22/20 | | | mg oral tablet | [...] tablet by | 30 | 0 | 02/23/ | | | (Vitamin D3) 2,000 | [...] off at this time FABIENNE PAIGE PA-C [facility] [address] [place] [address] Tino Swanson MD - 02/21/2018 11:51 AM [...] pain control, awaiting PT/OT. Tino Cortez MD [facility] [place] [address] [facility] [address] Associated attestation - Familia Early MD - 02/22/2018 10:10 AM PDTAttending: I saw and examined Jose Rafael Cisneros ([id number]) with the residents on 02/21/2018 and agree with the assessment and plan as outlined in this note and participated in the planning of care. Familia Early MD Equipment Cleaner And Tester Division of Trauma and Critical Care Erica [...] mm 0.00 General: 67 y/o male in NAD Incision: C/D/I, no erythema-conrado present Neuro: Alert [...] -Will arrange outpatient FU ERICA CALDERON PA-C [facility] [address]/[facility] [place] [address] [address] [address] MEDICATIONS Current Facility-Administered Medications Medication acetaminophen (TYLENOL) [...] might be different from the tomasa manley NEUROSURGERY PROGRESS NOTE 02/20/2018 Hospital Day #: [...] LMWH when INR is >2 Please page [phone] with any questions or concerns. Hugo Daniel M.D. Neurological Surgery Resident PGY-1 Pager: [phone] signed by Hugo Daniel MD at 02/20/2018 [...] neuro checks, pain control. Tino Cortez MD [facility] [facility] [address] Associated attestation - Munira Best MD,MPH - 02/20/2018 5:15 PM PDTI saw and evaluat ed the patient. I agree with the findings and the plan of care as documented in the residen t s note. Adjusting pain control up as the patient has acute on chronic pain. Further, cl eared for full dose anticoagulation initiation today (VTE) Munira Best MD, MPH supervisor long goods Trauma, Critical Care & Acute Care Surgery [facility] Jakob Portillo MD - 02/19/2018 10:20 AM [...] my supervising physicians. Jakob Portillo, PGY-1 Surgery 8[address] Division of Trauma Department of Surgery Mail Code: L611 [address] [place] [address] Associated attestation - Munira Best MD,MPH - 02/19/2018 8:48 PM PDTTSICU ATTENDING M EDICAL DECISION MAKING I examined this patient with the ICU team. I have personally reviewed all pertinent labar otory findings, radiographs, and physiologic parameters. I personally performed pertinent p arts of the physical examination and personally formulated the plan with the TSICU team. Munira Best MD, MPH supervisor long goods Trauma, Surgical Critical Care, & Acute Care Surgery [facility] Munira Fang MD - 02/19/2018 8:01 AM PDT Neurosurgery Progress Note Date: 02/19/2018 Admitting Physician: Deandre Austin MD HPI: Jose Rafael Cisneros is a 67 y.o. male admitted to [facility] for trauma Interval Update: OR [...] 41 PO2 78 81 HCO3 26.0 25.4 Y7NVJUTP 95.3 96.3 CSF Results No results for [...] Please contact the neurosurgery resident on-call pager [phone] with questions. Munira Moore MD Neurological Surgery [...] my supervising physicians. Jakob Portillo, PGY-1 Surgery [address]32[address] Division of Trauma Department of Surgery Mail Code: L611 [address] [place] [address] Associated attestation - Aracelis Whittington MD - 02/21/2018 10:50 PM PDTICU Attending: I saw and examined Jose Rafael Cisneros ([id number]) with the residents on 02/18/18 and agree with t he assessment and plan as outlined in this note and participated in the planning of care. 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 male admitted to [facility] for trauma Interval Update: NPO for OR Medications Scheduled Medication: [OCT Hold] acetaminophen 1,000 mg Q8H [OCT Hold] cholecalciferol (Vitamin D3) 2,000 Units DAILY [OCT Hold] folic acid 0.4 mg DAILY [Oct] insulin glargine 15 Units HS [OCT Hold] [...] 41 PO2 78 81 HCO3 26.0 25.4 S2XFTNNB 95.3 96.3 CSF Results No results for [...] Please contact the neurosurgery resident on-call pager [phone] with questions. Munira Moore MD Neurological Surgery PGY2 aMunira Kumar MD - 02/17/2018 9:54 AM PDT . Neurosurgery Progress Note Date: 02/17/2018 Admitting Physician: Deandre Austin MD HPI: Jose Rafael Cisneros is a 67 y.o. male admitted to [facility] for trauma Interval Update: NPO [...] for input(s): FIO2, PH, PCO2, PO2, HCO3, HJMPB3POF, N5KCAOZM, D6TATBTLR in the l ast 720 hours. CSF [...] Please contact the neurosurgery resident on-call pager [phone] with questions. Munira Moore MD Neurological Surgery [...] Intake/Output Summary (Last 24 hours) at 02/17/18 0766 Last data filed at 02/17/18 0705 Gross [...] Department of Surgery Mail Code: L611 [address] [place] [address] Associated attestation - Aracelis Whittington MD - 02/19/2018 10:54 PM PDTICU Attending: I saw and examined Jose Rafael Cisneros ([id number]) with Vandana Lora PA-C on 02/17/18 and [...] after spine surgery. Aracelis Whittington MD FACS crematory operator Division of Trauma, Critical Care & Acute Care Surgery Jakob Portillo MD - 02/16/2018 3:38 PM PDTPer neurosurgery, case canceled today due to OR availability. Diabetic diet started. NPO at midnight for OR 02/17. Jakob Portillo, PGY-1 Surgery [address] Jamie Hutton MD - 0 02/16/2018 11:34 [...] on xarelto Jamie Parra MD Neurosurgery PGY1 00692 Jakob mullen MD - 0 02/16/2018 9:25 [...] Department of Surgery Mail Code: L611 [address] [place] [address] Associated attestation - Aracelis Whittington MD - 02/17/2018 4:00 PM PDTAttending: I saw and examined Jose Rafael Cisneros ([id number]) with the residents on 02/16/18 and agree with t he assessment and plan as outlined in this note and participated in the planning of care. Aracelis Whittington MD FACS crematory operator Division of Trauma, Critical Care & Acute Care Surgery Munira Fang MD - 02/16/2018 5:00 AM PDT Neurosurgery Progress Note Date: 02/16/2018 Author: MUNIRA JACKSON MD Admitting Physician: Deandre Austin MD HPI: Jose Rafael Cisneros is a 67 y.o. male admitted to [facility] for trauma Interval Update: NPO [...] for input(s): FIO2, PH, PCO2, PO2, HCO3, UHFEC0ZBS, U7AGUQAI, T3FAFUZNJ in the l ast 720 hours. CSF [...] Please contact the neurosurgery resident on-call pager [phone] with questions. Munira Moore MD Neurological Surgery [...] ARGUETA | [address] | [place], [place] | | | JOI [facility] OF [facility] | [address] | [address] | | | TESTS | | | [...] + + + | [facility] | [address] | [place], [place] | | | BABAR TAMEZ OF [facility] | [address] | [address] | | | TESTS | | | [...] [facility] | [address] | [place] [address] | | | NAY KANG | PARK [...] MARYAMILETAM | [address] | [place], [place] | | | JOI POINT OF CARE | [address] | [address] | | | TESTS | | | [...] (H) | 70 - 99 mg/dL | [facility] - | | | GLUCOSE, [...] ARGUETA | [address] | [place], [place] | | | BABAR TAMEZ OF [facility] | [address] | [address] | | | TESTS | | | [...] MARQUAM | [address] | [place], [place] | | | BABAR TAMEZ OF TIMUR | [facility] | [address] | | | TESTS | | | [...] - MARQUAM | [address] | [place], [place] | | | JOI POINT OF CARE | [address] | [address] | | | TESTS | | | [...] (H) | 70 - 99 mg/dL | [facility] - | | | GLUCOSE, [...] + + + | AUTUMN ARGUETA | [address] | [place], [place] | | | BABAR TAMEZ OF [facility] | [address] | [address] | | | TESTS | | | [...] [facility] | [address] | [place] [address] | | | NAY KANG | [address] [...] MARQUAM | [address] | [place], [place] | | | BABAR TAMEZ OF CARE | [address] | [address] | | | TESTS | | | [...] (H) | 70 - 99 mg/dL | [facility] - | | | GLUCOSE, [...] ARGUETA | [address] | [place], [place] | | | BABAR TAMEZ OF CARE | [address] | [address] | | | TESTS | | | [...] MARQUAM | [address] | [place], [place] | | | BABAR TAMEZ OF CARE | [address] | [address] | | | TESTS | | | [...] | + + + + + | [facility] | [address] | [place] [address] | | | [facility] | [address] | | | + + + + + US SOFT TISSUE HEAD & NECK (02/20/2018 1:09 PM PDT) + + | Specimen | + + | | + + + + + | Narrative | Performed At | + + + | EXAM: US THYROID. HISTORY: Thyroid ultrasound for mass seen on | ARSU | | CT scan. COMPARISON: CTA neck [...] necessary, edited the report. I agree with [facility] report as now presented. | | [...] ARGUETA | [address] | [place], [place] | | | JOI POINT OF CARE | [facility] | [address] | | | TESTS | | | [...] MARQUAM | [address] | [place], [place] | | | BABAR TAMEZ OF CARE | [address] | [address] | | | TESTS | | | [...] ELLIE | [address] | [place], [place] | | | BABAR TAMEZ OF CARE | [address] | [address] | | | TESTS | | | [...] (H) | 70 - 99 mg/dL | [facility] - | | | GLUCOSE, [...] ARGUETA | [address] | [place], [place] | | | JOI POINT OF CARE | [address] | [address] | | | TESTS | | | [...] + + | [facility] | [address] | [place] [address] | | | NAY KANG | GENNARO [...] ELLIE | [address] | [place], [place] | | | BABAR TAMEZ OF CARE | [facility] | [address] | | | TESTS | | | [...] (H) | 70 - 99 mg/dL | [facility] - | | | GLUCOSE, [...] ARGUETA | [address] | [place], [place] | | | BABAR TAMEZ OF [facility] | [facility] | [address] | | | TESTS | | | [...] ELLIE | [address] | [place], [place] | | | BABAR TAMEZ OF TIMUR | [address] | [address] | | | TESTS | | | | + + + + + PROCEDURE NOTE (02/18/2018 3:25 PM PDT)[facility] VENOUS DUPLEX LOWER EXTREMITY BILAT [...] Note | + + | Service Account, [employer] Res In Interface - 02/18/2018 3:50 PM [...] Attending | | Surgeon: Pablito Barroso MD Programmer Analyst(s): All López MD, | | PhD Preoperative [...] after a C7 fracture. He presented to [facility] | | via Trauma having [...] the occipital plate. A | | DePuy [employer] Synapse plate was sized and placed on [...] These were then final tightened using the leather stamper instrumentation. | | The area was thoroughly [...] critical portions of the | | operation.PAVAN Mccarthy/MODLDD: 02/18/2018 12:36:03DT: 02/18/2018 13:17:58Job #: | | [id number] | |KG/MODL | | | | | | /[id number] | + + CAPILLARY BLOOD GLUCOSE (NO [...] + + + | AUTUMN ARGUETA | [address] | [place], [place] | | | BABAR TAMEZ OF CARE | [address] | [address] | | | TESTS | | | [...] MARQUAM | [address] | [place], [place] | | | BABAR TAMEZ OF [place] | [address] | [address] | | | TESTS | | | [...] | [facility] | [address] | [place], [place] | | | BABAR TAMEZ OF TIMUR | [facility] | [address] | | | TESTS | | | | + + + + + ABG-FULL BRIDGER POC (02/18/2018 9:12 AM PDT) + + + + + + | Component | Value | Ref Range | Performed | Pathologist | | | | | At | Signature | + + + + + + | PH | 7.36 (L) | 7.37 - 7.44 | [facility] - | | | AAYUSH, | | | MARQUAM | | | [...] [place] | | | | | | [place] | | [...] + + + | AUTUMN ARGUETA | [address] | [place], [place] | | | JOI POINT OF CARE | [address] | [address] | | | TESTS | | | [...] MARYAMILETAM | [address] | [place], [place] | | | BABAR TAMEZ OF TIMUR | [facility] | [address] | | | TESTS | | | [...] [facility] | [address] | [place] [address] | | | SERVICES, CORE | PARK [...] [facility] | [address] | [place] [address] | | | PEARL, NAY | PARK [...] [facility] | [address] | [place] [address] | | | SERVICES, CORE | PARK [...] | | | LABORATORY | | | KITTITIAN | | | SERVICES, | | | [...] the MDRD equation recommended by the | [facility] | | National Kidney Disease [...] | + + + + + | [facility] | [address] | [place] [address] | | | NYA KANG | [address] | | | + + + + + INTRAOPERATIVE NEURO MONITORING (02/18/2018) + + + | Narrative | Performed At | + + + | Patient Name: Jose Rafael Cisneros Date of : 1950 Medical | | | Record Number: [id number] Date of Test: 02/18/2018 Place of | | | Service: IP Intra Op (47) [id number] - [id number] INTRAOPERATIVE NEURO | | | MONITORING IOM: [...] 9 @ 15 min(s), [place]Y 28582 - Short Latency EP's | | | Upper AND Lower extremities 44261 - Central Motor EP's Upper AND | | | Lower extremities 04198 - EEG in Sleep Suggested Diagnosis: S14.152A [...] ARGUETA | [address] | [place], [place] | | | BABAR TAMEZ OF CARE | [address] | [address] | | | TESTS | | | [...] MARQUAM | [address] | [place], [place] | | | BABAR TAMEZ OF CARE | [address] | [address] | | | TESTS | | | [...] MARQUAM | [address] | [place], [place] | | | BABAR TAMEZ OF TIM[place] | [address] | [address] | | | TESTS | | | [...] ARGUETA | [address] | [place], [place] | | | BABAR TAMEZ OF CARE | [address] | [address] | | | TESTS | | | [...] MARQUAM | [address] | [place] | | | BABAR TAMEZ OF CARE | [address] | [address] | | | TESTS | | | [...] | + + + + + | [facility] | [address] | [place] [address] | | | NAY KANG | [address] [...] | + + + + + | [facility] | [address] | [place] [address] | | | SERVICES, CORE | [address] | | | + + + + + MAGNESIUM, PLASMA (02/17/2018 12:31 AM PDT) + +-------+ + + + | Component | Value | Ref Range | Performed | Pathologist | | | | | At | Signature | + +-------+ + + + | MAGNESIUM,P | 2.1 | 1.6 - 2.6 mg/dL | AUTUMN | | | REILLYMA [...] [facility] | [address] | [place] [address] | | | SERVICES, NAY | [address] [...] | | | LABORATORY | | | KITTITIAN | | | SERVICES, | | | [...] | + + + + + | [facility] | [address] [facility] [address] | [place] [address] | | | SERVICES, CORE | GENNARO [...] BARRYAM | [address] | [place], [place] | | | BABAR TAMEZ OF TIMUR | [facility] | [address] | | | TESTS | | | [...] (H) | 70 - 99 mg/dL | [facility] - | | | GLUCOSE, [...] ELLIE | [address] | [place] | | | BABAR TAMEZ OF CARE | [address] | [address] | | | TESTS | | | [...] DEPT OF | [address] | [place], [place] | | | CARDIOLOGY | [address] | [address] | | + + + + + [...] MARQUAM | [address] | [place], [place] | | | JOI POINT OF CARE | [address] | [address] | | | TESTS | | | [...] | [facility] | [address] | [place], [place] | | | [place] [facility] | [address] | [address] | | | TESTS | | | [...] | + + + + + | [facility] | [address] | [place] [address] | | | SERVICES, NAY | PARK [...] [facility] | [address] | [place] [address] | | | SERVICES, CORE | PARK [...] | + + + + + | [facility] | [address] | [place] [address] | | | NAY KANG | PARK [...] | | | LABORATORY | | | KITTITIAN | | | SERVICES, | | | [...] | + + + + + | [facility] | [address] | [place] [address] | | | SERVICES, CORE | PARK [...] | + + + + + | [facility] | [address] | [place] [address] | | | SERVICES, CORE | [address] [...] | + + + + + | [facility] | [address] | [place] [address] | | | SERVICES, CORE | [address]ENN[address] [...] MARQUAM | [address] | [place] | | | BABAR TAMEZ OF CARE | [address] | [address] | | | TESTS | | | [...] [facility] | [address] | [place] [address] | | | SERVICES, CORE | PARK [...] [facility] | [address] | [place] [address] | | | SERVICES, | [address] [...] [facility] | [address] | [place] [address] | | | SERVICES, | [address] [...] | + + + + + | AT[facility] AR[facility]ET[facility] | [address] | [place], [place] | | | BAABR TAMEZ OF TIMUR | [address] | [address] | | | TESTS | | | [...] Note | + + | Service Account, [employer] Res In Interface - 02/15/2018 4:57 PM [...] ARGUETA | [address] | [place] | | | JOI POINT OF CARE | [address] | [address] | | | TESTS | | | [...] AUTUMN ARGUETA | [address] | [place] | | | JOI POINT OF CARE | [address] | [address] | | | TESTS | | | [...] | + + + + + | [facility] | [address] | [place] [address] | | | NAY KANG | [address]ENN[address] [...] [facility] | [address] | [place] [address] | | | NAY KANG | [address] [...] | + + + + + | [facility] | [address] | [place] [address] | | | SERVICES, CORE | [address]ENN[address] [...] [facility] | [address] | [place] [address] | | | SERVICES, CORE | PARK [...] | + + + + + | [facility] | [address] | [place] [address] | | | SERVICES, | [address] [...] [facility] | [address] | [place] [address] | | | SERVICES, CORE | PARK [...] | | | LABORATORY | | | KITTITIAN | | | SERVICES, | | | [...] the MDRD equation recommended by the | [facility] | | National Kidney Disease [...] + + | Performing | Address | City[facility] | Phone Number | | Organization | | | | + + + + + | [facility] | [address] | [place] [address] | | | PEARL, CORE | [address] | | | [...] [facility] | [address] | [place] [address] | | | NAY KANG | [address] [...] | | | CITRATED | | | [place] | | | [...] | | AMPLITUDE - | | | [place] | | | CITRATED | | | [...] + + + | [facility] | [address] | [place] | | | JOI POINT OF CARE | [facility] | [address] | | | TESTS | | | [...] 02/15/18 at 1753, | | | Until Wed02/23/18 [...] PDT | | | | | Starting Wed02/18/18 at 1005, | | | | | | | Until Wed02/18/18 at 1404, | | | | | [...] | | | | | NEEDED, Starting Wed02/15/18 at | | | | | | [...] | | | | Nusrat 02/17/18 at 2200, Until | | | | [...] | | | | | | | 02/15/18 at [...] | | | | last modification) on Wed02/16/18 | | | | | | | at 0730, Until Discontinued | | | | | [...] | | | | | | last reorder) on [facility] 02/17/18 at | | | | | | | 0730, Until Discontinued | | | | | [...] | | | | last modification) on [facility] 02/19/18 | | | | | | [...] PDT | | | | | dose, Charla 02/15/18 at 1615 | | | | [...] | | | | | NEEDED, Starting Wed02/15/18 at | | | | | | [...] 11:44 | | | | | dose, Nusrat 02/17/18 at 1045 | | AM PDT [...]
--- OUTSIDE RECORDS SUMMARY | ~2019-08-03 | XMS | Encounter Summary ---
Demographics + + + | Address | [address] | | | [place] [address] | + + + | Home Phone | | + + + | Preferred Language | Unknown | + + + | Marital Status | Single | + + + | Muslim Affiliation | [id number] | + + + | Race | Unknown | + + + | Ethnic Group | Unknown | + + + Author + + + | Author | [facility] | | | and Zekeana | + + + | Organization | [facility] [...] Team Providers + +------+ + | Care Tobacco Farmworker Name | Role | Phone | + +------+ + PCP | Unavailable | + +------+ + Encounter Details +--------+ + + + + | Date | Type | Department | Care Team | Description | +--------+ + + + + | 01/06/ | Hospital | [facility] | Moni Dumont DO | Diagnosis unknown; | | 2017 - | Encounter | [facility] [address] | [address] | Closed nondisplaced | | | | [address] | [place] [address] | fracture of seventh | | 01/22/ | | [place], [place] | [phone] | cervical vertebra, | | 2017 | | [phone] | | unspecified fracture | | | | [phone] | | morphology, initial | | | | | | encounter ([facility]); | | | | | | Maxillary fracture, | | | | | | left side, initial | | | | | | encounter for open | | | | | | fracture ([facility]); | | | | | | Antiphospholipid | | | | | | syndrome ([facility]); | | | | | | Controlled type 2 | | | | | | diabetes mellitus | | | | | | with hyperglycemia, | | | | | | without long-term | | | | | | current use of | | | | | | insulin ([facility]); | | | | | | Syncope [...] Service: Hospitalist Author Type: Physician Filed: 01/22/17 7424 Date of Service: 01/22/17 1104 Status: Signed Internal Grinder Tender: Jimi Mauricio MD (Physician) [facility] Service: Hospitalist Discharge Summary Date of Admission: 01/06/2017 Date of Discharge: 01/22/2017 Discharge Provider: Jimi Mauricio MD Treatment Team: Consulting Physician: Mendez Morrison MD Consulting Physician: Patrick Elizabeth MD Admitting Provider: Moni Dumnot DO Discharge Diagnoses: Principal Problem: Closed nondisplaced [...] ankylosing spondylitis, who presents to transfer from [facility] with a C7 fracture, left maxillary sinus fracture, thyroid mass and syncope. [facility] at the [facility] were left sided face swelling, neck [...] thyroid mass, left maxillary sinus fra cture [facility] treatment: Dilaudid, morphine, cyclobenzaprine From Dr [...] mained immobilized on c-collar. Follow up with [facility]. C collar on at all times Avoid NSAIDs and Steroids Ok to restart anticoagulation after office visit if everything is ok at that point FU with [facility] neuroscience the week of February 01- with Xray Cervical spine in the collar a nd for suture removal Pt is of [place] [employer] [place]. Past Medical History Diagnosis Date Ankylosing spondylitis [...] POSTERIOR; Surgeon: Mendez Morrison MD; Locat ion: [facility] MAIN OR; Service: Neurosurgery; Laterality: N/A; C3-T2 Incision and drainage posterior lumbar spine N/A 01/12/2017 Procedure: LUMBAR - DRAINAGE; Surgeon: Mendez Morrison MD; Location: [facility] IN OR; Service: Neurosurgery; Laterality: N/A; Allergies [...] Jan 17 2017 3:17AM Referring Provider Line: [phone] ID: [id number] Xr Abdomen 1 View 01/16/2017 EXAM: ABDOMEN RADIOGRAPHY EXAM DATE: 01/16/2017 02:43 AM. CLINICAL HISTORY: Cons tipation. COMPARISON: None. TECHNIQUE: 1 view. FINDINGS: Bowel Gas Pattern: Within normal limits. No dilated loops. Other: Previous bilateral hip replacements. 01/16/2017 Grossly negative supine 1-view abdomen x-ray. RADIA Electronically signed by Rich Cooper MD on Jan 16 2017 3:10AM Referring Provider Line: [phone] ID: [id number] Ct Cervical Spine Without Contrast [...] No discharge procedures on file. Follow up: [facility] [address] [place], [place] [address] Follow up on 01/25/2017 [facility] will be coming to your home for the first home health appointment on either Thursday 01/25 or Friday 01/26. They should be calling you on Wednesday to schedule. Pl ease call them Wednesday afternoon if you have not heard from [place]. [place] [id number] [address] [place] [id number] In 1 week [facility] [address] [place] [phone] On 02/01/2017 xray C-spine and suture removal. [...] 1431 Date of Service: 01/22/171428 Status: Signed Internal Grinder Tender: Aby Del Castillo RN (Registered Nurse) Discharge [...] Date of Service: 01/22/17 1204 Status: Addendum Internal Grinder Tender: Ed Elder RN (Registered Nurse) Related Notes: Original Note by Ed Elder RN (Registered Nurse) filed at 01/22/17 12 01/22/17 1203 Anticipated Disposition Facility Type Home health care;Home Disposition: Home with [facility]. I spoke with Rea at [facility] and she confirmed she received the clinical and [id number]. They will call the pt Wednesday to [...] 01/22/17950 Date of Service: 01/22/17941 Status: Addendum Internal Grinder Tender: Ed Elder RN (Registered Nurse) Related Notes: Original Note by Ed Elder RN (Registered Nurse) filed at 01/22/17 44 Discharge planning: CM spoke with Rea ([phone]) at [facility] in [facility] and she states they will be able to admit this patient for home health services. Cl inical and [id number] faxed to them at this time. She [...] 1328 Date of Service: 01/22/17657 Status: Signed Internal Grinder Tender: JOZEF Mcrae (Occupational Therapist) 01/22/17657 OT Last Visit OT Received On 01/22/17 Reason for Treatment Other (comment) (Cervical fracture) Requires OT Follow Up No OT Eval/Reassessment Date 01/22/17 (OT reassess) Assistance Required 1 person Matrix Bath Attendant Needed No Family/Caregiver Present No Precautions Spinal [...] LE Dressing Yes LE Dressing Adaptive Equipment Food Service Coordinator LE Dressing Comments Pt able to don pants in standing with supervision using chief vendor quality to gra b pants, and received cueing [...] maribel on this date. Jose rios, Mendez Nicole MD - 01/21/2017 12:20 PM PDT Progress Notes by Mendez Morrison MD at 01/21/17 1220 Author: Mendez Morrison MD Service: Neurosurgery Author Type: Physician Filed: 01/21/17 7477 Date of Service: 01/21/17 1220 Status: Signed Internal Grinder Tender: Mendez Morrison MD (Physician) [facility] Service: Neurosurgery Progress Note Hospital Day: LOS: [...] dextrose PRN Medications acetaminophen OR acetaminophen, benzocaine-menthol, bkohyxybxx-pwnpyxofwanoh-mzeawqiy, carboxymethylcellulose, cyclobenzaprine, dextrose, dextrose, dextrose, dextrose, docusate [...] Procedure Component Value Units Date/Time POCT glucose [[id number]] (Abnormal) Collected: 01/21/17 1124 GLUCOSE,POC SCREEN 174 (H) mg/dL Updated: 01/21/17 1129 Basic metabolic panel [[id number]] (Abnormal) Collected: 01/21/17535 Specimen Information: Blood Updated: 01/21/17 07 SODIUM 135 mmol/L POTASSIUM 4.0 mmol/L CHLORIDE 104 mmol/L CO2 21 (L) mmol/L ANION GAP AGAP 14 mmol/L GLUCOSE 107 (H) mg/dL BUN 7 (L) mg/dL CREATININE 0.7 mg/dL BUN/CREAT 10 CALCIUM 8.6 mg/dL EGFR >60 mL/min/1.73m2 Magnesium [[id number]] Collected: 01/21/17535 Specimen Information: Blood Updated: 01/21/17 0705 MAGNESIUM 2.0 mg/dL Phosphorus [[id number]] (Abnormal) Collected: 01/21/17535 Specimen Information: Blood Updated: 01/21/17704 PHOSPHORUS 2.1 (L) mg/dL CBC w/auto diff (reflex to manual) [[id number]] (Abnormal) Collected: 01/21/1736 Specimen Information: Blood Updated: [...] RBC AND PLT MORPHOLOGY APPEAR NORMAL Protime-INR [[id number]] Collected: 01/21/17535 Specimen Information: Blood Updated: 01/21/17 0631 INR 1.1 POCT glucose [[id number]] (Abnormal) Collected: 01/21/17 0525 GLUCOSE,POC SCREEN 117 (H) mg/dL Updated: 01/21/17 0533 POCT glucose [[id number]] (Abnormal) Collected: 01/20/17 2147 GLUCOSE,POC SCREEN 130 (H) mg/dL Updated: 01/20/17 2203 POCT glucose [[id number]] Collected: 01/20/17 1644 GLUCOSE,POC SCREEN 89 mg/dL Updated: 01/20/17 1856 POCT glucose [[id number]] (Abnormal) Collected: 01/20/17 1204 GLUCOSE,POC SCREEN 103 (H) mg/dL Updated: 01/20/17 1856 POCT glucose [[id number]] (Abnormal) Collected: 01/20/17 1020 GLUCOSE,POC SCREEN 121 (H) mg/dL Updated: 01/20/17 185 CBC w/auto diff (reflex to manual) [[id number]] (Abnormal) Collected: 01/20/17 0409 Specimen Information: Blood [...] AND PLT MORPHOLOGY APPEAR NORMAL POCT glucose [[id number]] Collected: 01/20/17 0555 GLUCOSE,POC SCREEN 78 mg/dL Updated: 01/20/17599 POCT glucose [[id number]] (Abnormal) Collected: 01/19/17 2351 GLUCOSE,POC SCREEN 125 (H) mg/dL Updated: 01/20/17599 POCT glucose [[id number]] (Abnormal) Collected: 01/19/17 2136 GLUCOSE,POC SCREEN 136 (H) mg/dL Updated: 01/20/17599 Basic metabolic panel [[id number]] (Abnormal) Collected: 01/20/17408 Specimen Information: Blood Updated: 01/20/17528 SODIUM 138 mmol/L POTASSIUM 4.1 mmol/L CHLORIDE 108 mmol/L CO2 20 (L) mmol/L ANION GAP AGAP 14 mmol/L GLUCOSE 74 mg/dL BUN 14 mg/dL CREATININE 0.8 mg/dL BUN/CREAT 18 CALCIUM 8.6 mg/dL EGFR >60 mL/min/1.73m2 Magnesium [[id number]] Collected: 01/20/17408 Specimen Information: Blood Updated: 01/20/17528 MAGNESIUM 2.2 mg/dL Phosphorus [[id number]] Collected: 01/20/17408 Specimen Information: Blood Updated: 01/20/17528 PHOSPHORUS 3.6 mg/dL Protime-INR [[id number]] Collected: 01/20/17408 Specimen Information: Blood Updated: 01/20/17 0500 INR 1.1 POCT glucose [[id number]] (Abnormal) Collected: 01/19/17 1905 GLUCOSE,POC SCREEN 118 (H) mg/dL Updated: 01/19/17 1908 POCT glucose [[id number]] (Abnormal) Collected: 01/19/17 1746 GLUCOSE,POC SCREEN 107 (H) mg/dL Updated: 01/19/17 1751 Potassium [[id number]] (Abnormal) Collected: 01/19/17 142 Specimen Information: Blood Updated: 01/19/17 1452 POTASSIUM 3.1 (L) mmol/L Magnesium [[id number]] Collected: 01/19/171421 Specimen Information: Blood Updated: 01/19/17 1452 MAGNESIUM 2.0 mg/dL Phosphorus [[id number]] (Abnormal) Collected: 01/19/171421 Specimen Information: Blood Updated: 01/19/17 1452 PHOSPHORUS 1.4 (L) mg/dL POCT glucose [[id number]] (Abnormal) Collected: 01/19/17 1205 GLUCOSE,POC SCREEN 146 (H) mg/dL Updated: 01/19/17 1421 POCT glucose [[id number]] (Abnormal) Collected: 01/19/17 0605 GLUCOSE,POC SCREEN 136 (H) mg/dL Updated: 01/19/17 0630 CBC w/auto diff (reflex to manual) [[id number]] (Abnormal) Collected: 01/19/17354 Specimen Information: Blood Updated: [...] PLT MORPHOLOGY APPEAR NORMAL Basic metabolic panel [[id number]] (Abnormal) Collected: 01/19/17354 Specimen Information: Blood Updated: 05/30/17 0458 SODIUM 139 mmol/L POTASSIUM 3.4 (L) mmol/L CHLORIDE 103 mmol/L CO2 25 mmol/L ANION GAP AGAP 14 mmol/L GLUCOSE 144 (H) mg/dL BUN 22 mg/dL CREATININE 0.7 mg/dL BUN/CREAT 31 CALCIUM 7.7 (L) mg/dL EGFR >60 mL/min/1.73m2 Magnesium [[id number]] Collected: 01/19/17354 Specimen Information: Blood Updated: 01/19/17457 MAGNESIUM 2.1 mg/dL Phosphorus [[id number]] (Abnormal) Collected: 01/19/17354 Specimen Information: Blood Updated: 01/19/17457 PHOSPHORUS 2.2 (L) mg/dL Protime-INR [[id number]] Collected: 01/19/17354 Specimen Information: Blood Updated: 01/19/17419 INR 1.1 POCT glucose [[id number]] (Abnormal) Collected: 01/18/17 2135 GLUCOSE,POC SCREEN 121 (H) mg/dL Updated: 01/18/17 2150 POCT glucose [[id number]] (Abnormal) Collected: 01/18/17 1704 GLUCOSE,POC SCREEN 178 (H) mg/dL Updated: 01/18/17 1740 POCT glucose [[id number]] (Abnormal) Collected: 01/18/17 0927 GLUCOSE,POC SCREEN 152 (H) mg/dL Updated: 01/18/17 1740 Magnesium [[id number]] Collected: 01/18/171706 Specimen Information: Blood Updated: 01/18/17 1736 MAGNESIUM 2.2 mg/dL Phosphorus [[id number]] (Abnormal) Collected: 01/18/171706 Specimen Information: Blood Updated: 01/18/176 PHOSPHORUS 1.6 (L) mg/dL Potassium [[id number]] Collected: 01/18/171706 Specimen Information: Blood Updated: 01/18/17 [...] Jan 17 2017 3:17AM Referring Provider Line: [phone] ID: [id number] Xr Abdomen 1 View 01/16/2017 Grossly negative supine 1-view abdomen x-ray. RADIA Electronically signed by Rich Cooper MD on Jan 16 2017 3:10AM Referring Provider Line: [phone] ID: [id number] Ct Cervical Spine Without Contrast [...] is ok at that point FU with [facility] neuroscience the week of February 01 with [...] 1218 Date of Service: 01/21/178 Status: Signed Internal Grinder Tender: REGINALDO Kaiser (Massage Therapist) 01/21/17 1129 Massage [...] Date of Service: 01/21/17 1149 Status: Signed Internal Grinder Tender: Natasha Bright RN (Registered Nurse) 01/21/17 1147 Discharge Planning Evaluation Admitting Diagnosis Vertebra fx Readmission No Living Arrangements Alone Support Systems Children Type of Residence Private residence Independent with ADL's Yes Independent with Mobility Yes Caregiver after Discharge Yes Caregiver Name Di Relationship to Patient granddaughter Power of Molder Machine Tender Name yes Power of Molder Machine Tender Anticipated Discharge Plan Post Acute Care Needs None at this time Plan communicated to patient/family Yes Resources Financial concerns No Patient/Family concerns No Prescription Plan Yes Previous home health equipment Yes (walker) Anticipated Disposition Facility Type Home health shelter [facility] Met with patient and discussed discharge planning, Pt is a 66 y.o., male with a vertebrae f racture. He lives at [place] alone on the [address] ([facility]) outside of [place], [place] . He stated his granddaughter is his 24 hour paid caregiver. He has a walker at home. PT has recommended home health PT; CM is faxing over patient info to establish this at [facility] in [place] ([phone]) as [facility] is full & deferring all of their [...] home health PT ([facility]) Natasha Bright [phone] Devaughn Corcoran MD - 01/21/2017 11:42 AM PDTFormatting of this note might be different from john iraheta. Progress Notes by Jimi Mauricio MD at 01/21/17 1142 Author: Jimi Mauricio MD Service: Hospitalist Author Type: Physician Filed: 01/21/17 1203 Date of Service: 01/21/17 1142 Status: Signed Internal Grinder Tender: Jimi Mauricio MD (Physician) [facility] Service: Hospitalist Progress Note Hospital Day: LOS: [...] ankylosing spondylitis, who presents to transfer from [facility] with a C7 fracture, left maxillary sinus fracture, thyroid mass and syncope. Main complaints at the [facility] were left sided face swelling, neck [...] Jan 17 2017 3:17AM Referring Provider Line: [phone] ID: [id number] Xr Abdomen 1 View 01/16/2017 EXAM: ABDOMEN RADIOGRAPHY EXAM DATE: 01/16/2017 02:43 AM. CLINICAL HISTORY: Cons tipation. COMPARISON: None. TECHNIQUE: 1 view. FINDINGS: Bowel Gas Pattern: Within normal limits. No dilated loops. Other: Previous bilateral hip replacements. 01/16/2017 Grossly negative supine 1-view abdomen x-ray. RADIA Electronically signed by Rich Cooper MD on Jan 16 2017 3:10AM Referring Provider Line: [phone] ID: [id number] Ct Cervical Spine Without Contrast [...] Angelito Mirza PTA Service: (none) Author Type: Order Entry Representative Filed: 01/21/17 1121 Date of Service: 01/21/17 1119 Status: Signed Internal Grinder Tender: Angelito Mirza PTA (Order Entry Representative) 01/21/17 1119 PT Last Visit PT Received [...] 1231 Date of Service: 01/20/172114 Status: Signed Internal Grinder Tender: Mendez Morrison MD (Physician) [facility] Service: Neurosurgery Progress Note Hospital Day: LOS: [...] dextrose PRN Medications acetaminophen OR acetaminophen, bisacodyl, udrxgdymhc-mcexrhhbayzmz-poymugyp, carboxyme thylcellulose, cyclobenzaprine, dextrose, dextrose, dextrose, dextrose, [...] BMI 37.77 kg/m2 | SpO2 99% 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 5/5 x4 Sensation intact No radicular [...] Procedure Component Value Units Date/Time POCT glucose [[id number]] Collected: 01/20/17 1644 GLUCOSE,POC SCREEN 89 mg/dL Updated: 01/20/171855 POCT glucose [[id number]] (Abnormal) Collected: 01/20/17 1204 GLUCOSE,POC SCREEN 103 (H) mg/dL Updated: 01/20/171855 POCT glucose [[id number]] (Abnormal) Collected: 01/20/17 1020 GLUCOSE,POC SCREEN 121 (H) mg/dL Updated: 01/20/171855 CBC w/auto diff (reflex to manual) [[id number]] (Abnormal) Collected: 01/20/17408 Specimen Information: Blood Updated: [...] AND PLT MORPHOLOGY APPEAR NORMAL POCT glucose [[id number]] Collected: 01/20/17 0555 GLUCOSE,POC SCREEN 78 mg/dL Updated: 01/20/17 06 POCT glucose [[id number]] (Abnormal) Collected: 01/19/17 2351 GLUCOSE,POC SCREEN 125 (H) mg/dL Updated: 01/20/17 06 POCT glucose [[id number]] (Abnormal) Collected: 01/19/17 2136 GLUCOSE,POC SCREEN 136 (H) mg/dL Updated: 01/20/17 06 Basic metabolic panel [[id number]] (Abnormal) Collected: 01/20/17408 Specimen Information: Blood Updated: 01/20/17528 SODIUM 138 mmol/L POTASSIUM 4.1 mmol/L CHLORIDE 108 mmol/L CO2 20 (L) mmol/L ANION GAP AGAP 14 mmol/L GLUCOSE 74 mg/dL BUN 14 mg/dL CREATININE 0.8 mg/dL BUN/CREAT 18 CALCIUM 8.6 mg/dL EGFR >60 mL/min/1.73m2 Magnesium [[id number]] Collected: 01/20/17408 Specimen Information: Blood Updated: 01/20/17528 MAGNESIUM 2.2 mg/dL Phosphorus [[id number]] Collected: 01/20/17408 Specimen Information: Blood Updated: 01/20/17 0529 PHOSPHORUS 3.6 mg/dL Protime-INR [[id number]] Collected: 01/20/17 0409 Specimen Information: Blood Updated: 01/20/17 0500 INR 1.1 POCT glucose [[id number]] (Abnormal) Collected: 01/19/17 1905 GLUCOSE,POC SCREEN 118 (H) mg/dL Updated: 01/19/17 1908 POCT glucose [[id number]] (Abnormal) Collected: 01/19/17 1746 GLUCOSE,POC SCREEN 107 (H) mg/dL Updated: 01/19/17 1751 Potassium [[id number]] (Abnormal) Collected: 01/19/17 142 Specimen Information: Blood Updated: 01/19/17 1452 POTASSIUM 3.1 (L) mmol/L Magnesium [[id number]] Collected: 01/19/17 142 Specimen Information: Blood Updated: 01/19/17 1452 MAGNESIUM 2.0 mg/dL Phosphorus [[id number]] (Abnormal) Collected: 01/19/17 142 Specimen Information: Blood Updated: 01/19/17 1452 PHOSPHORUS 1.4 (L) mg/dL POCT glucose [[id number]] (Abnormal) Collected: 01/19/17 1205 GLUCOSE,POC SCREEN 146 (H) mg/dL Updated: 01/19/17 1421 POCT glucose [[id number]] (Abnormal) Collected: 01/19/17 0605 GLUCOSE,POC SCREEN 136 (H) mg/dL Updated: 01/19/17 0630 CBC w/auto diff (reflex to manual) [[id number]] (Abnormal) Collected: 01/19/17 0355 Specimen Information: Blood [...] PLT MORPHOLOGY APPEAR NORMAL Basic metabolic panel [[id number]] (Abnormal) Collected: 01/19/17354 Specimen Information: Blood Updated: 01/19/17457 SODIUM 139 mmol/L POTASSIUM 3.4 (L) mmol/L CHLORIDE 103 mmol/L CO2 25 mmol/L ANION GAP AGAP 14 mmol/L GLUCOSE 144 (H) mg/dL BUN 22 mg/dL CREATININE 0.7 mg/dL BUN/CREAT 31 CALCIUM 7.7 (L) mg/dL EGFR >60 mL/min/1.73m2 Magnesium [[id number]] Collected: 01/19/17354 Specimen Information: Blood Updated: 01/19/17457 MAGNESIUM 2.1 mg/dL Phosphorus [[id number]] (Abnormal) Collected: 01/19/17354 Specimen Information: Blood Updated: 01/19/17457 PHOSPHORUS 2.2 (L) mg/dL Protime-INR [[id number]] Collected: 01/19/17354 Specimen Information: Blood Updated: 01/19/17419 INR 1.1 POCT glucose [[id number]] (Abnormal) Collected: 01/18/172134 GLUCOSE,POC SCREEN 121 (H) mg/dL Updated: 01/18/17 2150 POCT glucose [[id number]] (Abnormal) Collected: 01/18/17 170 GLUCOSE,POC SCREEN 178 (H) mg/dL Updated: 01/18/171739 POCT glucose [[id number]] (Abnormal) Collected: 01/18/17 0927 GLUCOSE,POC SCREEN 152 (H) mg/dL Updated: 01/18/17 174 Magnesium [[id number]] Collected: 01/18/171706 Specimen Information: Blood Updated: 01/18/171735 MAGNESIUM 2.2 mg/dL Phosphorus [[id number]] (Abnormal) Collected: 01/18/171706 Specimen Information: Blood Updated: 01/18/171735 PHOSPHORUS 1.6 (L) mg/dL Potassium [[id number]] Collected: 01/18/171706 Specimen Information: Blood Updated: 01/18/171735 POTASSIUM 3.7 mmol/L TSH reflex [[id number]] Collected: 01/18/17424 TSH REFLEX 1.78 uIU/mL Updated: 01/18/17 1118 Procalcitonin [[id number]] Collected: 01/18/17921 PROCALCITONIN 0.11 ng/mL Updated: 01/18/17 1003 Septic Lactic Acid [[id number]] Collected: 01/18/17921 LACTIC ACID 1.0 mmol/L Updated: 01/18/1753 POCT glucose [[id number]] (Abnormal) Collected: 01/18/17618 GLUCOSE,POC SCREEN 127 (H) mg/dL Updated: 01/18/17622 CBC w/auto diff (reflex to manual) [[id number]] (Abnormal) Collected: 01/18/17424 Specimen Information: Blood Updated: [...] PLT MORPHOLOGY APPEAR NORMAL Basic metabolic panel [[id number]] (Abnormal) Collected: 01/18/17424 Specimen Information: Blood Updated: 01/18/17500 SODIUM 132 (L) mmol/L POTASSIUM 3.4 (L) mmol/L CHLORIDE 95 (L) mmol/L CO2 28 mmol/L ANION GAP AGAP 13 mmol/L GLUCOSE 118 (H) mg/dL BUN 43 (H) mg/dL CREATININE 0.87 mg/dL BUN/CREAT 49 CALCIUM 8.1 (L) mg/dL EGFR >60 mL/min/1.73m2 Magnesium [[id number]] (Abnormal) Collected: 01/18/17424 Specimen Information: Blood Updated: 01/18/17 050 MAGNESIUM 2.5 (H) mg/dL Phosphorus [[id number]] (Abnormal) Collected: 01/18/17424 Specimen Information: Blood Updated: 01/18/17 0501 PHOSPHORUS 1.5 (L) mg/dL Protime-INR [[id number]] Collected: 01/18/17 0425 Specimen Information: Blood Updated: 01/18/17 0452 INR 1.1 POCT glucose [[id number]] (Abnormal) Collected: 01/17/17 2205 GLUCOSE,POC SCREEN 124 [...] Jan 17 2017 3:17AM Referring Provider Line: [phone] ID: [id number] Xr Abdomen 1 View 01/16/2017 Grossly negative supine 1-view abdomen x-ray. RADIA Electronically signed by Rich Cooper MD on Jan 16 2017 3:10AM Referring Provider Line: [phone] ID: [id number] Ct Head Without Contrast 01/14/2017 [...] 01/20/172109 Date of Service: 01/20/172104 Status: Signed Internal Grinder Tender: Fernanda Robles RN (Registered Nurse) Pt complaining [...] at 01/20/171727 Author: Matt Fong MD Service: Halfway House Counselor Author Type: Physician Filed: 01/20/171736 Date of Service: 01/20/171727 Status: Signed Internal Grinder Tender: Matt Fong MD (Physician) [facility] Service: Halfway House Counselor Progress Note Jose Rafael [place] 66 y.o. [...] ankylosing spondylitis, who presents to transfer from [facility] with a C7 fracture, left maxillary [...] Jan 17 2017 3:17AM Referring Provider Line: [phone] ID: [id number] Xr Abdomen 1 View 01/16/2017 Grossly negative supine 1-view abdomen x-ray. RADIA Electronically signed by Rich Cooper MD on Jan 16 2017 3:10AM Referring Provider Line: [phone] ID: [id number] Ct Cervical Spine Without Contrast [...] Controlled type 2 diabetes mellitus with hyperglycemia ([facility]) Syncope and collapse Thyroid mass CSF leak [...] SQ heparin for now. 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: Goal BG 80-180; continue treatment [...] Date of Service: 01/20/17 1601 Status: Addendum Internal Grinder Tender: Brook Beasley PT (Physical Therapist) Related Notes: [...] Barriers to Discharge Pain;Physical Deficits Impacting Functional [facility] PT Ready for Discharge Yes Recommendation Comments [...] (none) Author Type: Physical Therapist Filed: 01/20/17 1054 Date of Service: 01/20/17 105 Status: Signed Internal Grinder Tender: Brook Beasley PT (Physical Therapist) 01/20/17 1050 [...] Note by REGINALDO Swan at 01/20/1735 Author: REGINLADO Swan Service: (none) Author Type: Massage Therapist Filed: 01/20/17 1420 Date of Service: 01/20/17934 Status: Addendum Internal Grinder Tender: REGINALDO Swan (Massage Therapist) Related Notes: Original Note by REGINALDO Swan (Massage Therapist) filed at 01/2001/20/1734 MT Last Visit MT Received On 01/20/17 MT Therapy Visit Not available (pt care) Treated onver jacki Transaction, Provider Unknown - 01/20/2017 9:29 AM PDT Case Management by SN Lopez at 01/20/17928 Author: SN Lopez Service: (none) Author Type: Glassware Engraver Filed: 01/20/1736 Date of Service: 01/20/17928 Status: Signed Internal Grinder Tender: SN Lopez (Glassware Engraver) Attended rounds and plan is to clamp patient's lumbar drain and planned removal later today by Dr. Morrison. Patient had loose stools overnight and will isolate patient per policy. Blood pressures elevated and will be addressed with additional medications. Mendez Oconnor MD - 01/19/2017 6:40 PM PDT Progress Notes by Mendez Morrison MD at 01/19/17 5201 Author: Mendez Morrison MD Service: Neurosurgery Author Type: Physician Filed: 01/21/17 0804 Date of Service: 01/19/17 0060 Status: Signed Internal Grinder Tender: Mendez Morrison MD (Physician) [facility] Service: Neurosurgery Progress Note Hospital Day: LOS: [...] dextrose dextrose PRN Medications acetaminophen OR acetaminophen, bwmzjejjdn-jlkrhlbibuhae-tjrenzrv, carboxymethylcellulo se, cyclobenzaprine, dextrose, dextrose, dextrose, dextrose, [...] BMI 37.77 kg/m2 | SpO2 97% 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 5/5 x4 Sensation intact No radicular [...] Procedure Component Value Units Date/Time POCT glucose [[id number]] (Abnormal) Collected: 01/19/17 1746 GLUCOSE,POC SCREEN 107 (H) mg/dL Updated: 01/19/17 1751 Potassium [[id number]] (Abnormal) Collected: 01/19/17 142 Specimen Information: Blood Updated: 01/19/17 1452 POTASSIUM 3.1 (L) mmol/L Magnesium [[id number]] Collected: 01/19/171421 Specimen Information: Blood Updated: 01/19/17 1452 MAGNESIUM 2.0 mg/dL Phosphorus [[id number]] (Abnormal) Collected: 01/19/17 142 Specimen Information: Blood Updated: 01/19/17 1452 PHOSPHORUS 1.4 (L) mg/dL POCT glucose [[id number]] (Abnormal) Collected: 01/19/17 1205 GLUCOSE,POC SCREEN 146 (H) mg/dL Updated: 01/19/17 1421 POCT glucose [[id number]] (Abnormal) Collected: 01/19/17 0605 GLUCOSE,POC SCREEN 136 (H) mg/dL Updated: 01/19/17 0630 CBC w/auto diff (reflex to manual) [[id number]] (Abnormal) Collected: 01/19/17354 Specimen Information: Blood Updated: [...] PLT MORPHOLOGY APPEAR NORMAL Basic metabolic panel [[id number]] (Abnormal) Collected: 01/19/17354 Specimen Information: Blood Updated: 01/19/17457 SODIUM 139 mmol/L POTASSIUM 3.4 (L) mmol/L CHLORIDE 103 mmol/L CO2 25 mmol/L ANION GAP AGAP 14 mmol/L GLUCOSE 144 (H) mg/dL BUN 22 mg/dL CREATININE 0.7 mg/dL BUN/CREAT 31 CALCIUM 7.7 (L) mg/dL EGFR >60 mL/min/1.73m2 Magnesium [[id number]] Collected: 01/19/17354 Specimen Information: Blood Updated: 01/19/17457 MAGNESIUM 2.1 mg/dL Phosphorus [[id number]] (Abnormal) Collected: 01/19/17354 Specimen Information: Blood Updated: 01/19/17457 PHOSPHORUS 2.2 (L) mg/dL Protime-INR [[id number]] Collected: 01/19/17354 Specimen Information: Blood Updated: 01/19/17419 INR 1.1 POCT glucose [[id number]] (Abnormal) Collected: 01/18/17 2135 GLUCOSE,POC SCREEN 121 (H) mg/dL Updated: 01/18/17 2150 POCT glucose [[id number]] (Abnormal) Collected: 01/18/17 1704 GLUCOSE,POC SCREEN 178 (H) mg/dL Updated: 01/18/17 174 POCT glucose [[id number]] (Abnormal) Collected: 01/18/17 0927 GLUCOSE,POC SCREEN 152 (H) mg/dL Updated: 01/18/17 174 Magnesium [[id number]] Collected: 01/18/171706 Specimen Information: Blood Updated: 01/18/176 MAGNESIUM 2.2 mg/dL Phosphorus [[id number]] (Abnormal) Collected: 01/18/171706 Specimen Information: Blood Updated: 01/18/171735 PHOSPHORUS 1.6 (L) mg/dL Potassium [[id number]] Collected: 01/18/171706 Specimen Information: Blood Updated: 01/18/171735 POTASSIUM 3.7 mmol/L TSH reflex [[id number]] Collected: 01/18/17424 TSH REFLEX 1.78 uIU/mL Updated: 01/18/17 1118 Procalcitonin [[id number]] Collected: 01/18/17921 PROCALCITONIN 0.11 ng/mL Updated: 01/18/17 1003 Septic Lactic Acid [[id number]] Collected: 01/18/17921 LACTIC ACID 1.0 mmol/L Updated: 01/18/17 0953 POCT glucose [[id number]] (Abnormal) Collected: 01/18/1719 GLUCOSE,POC SCREEN 127 (H) mg/dL Updated: 01/18/17622 CBC w/auto diff (reflex to manual) [[id number]] (Abnormal) Collected: 01/18/17424 Specimen Information: Blood Updated: [...] PLT MORPHOLOGY APPEAR NORMAL Basic metabolic panel [[id number]] (Abnormal) Collected: 01/18/17424 Specimen Information: Blood Updated: 01/18/17 050 SODIUM 132 (L) mmol/L POTASSIUM 3.4 (L) mmol/L CHLORIDE 95 (L) mmol/L CO2 28 mmol/L ANION GAP AGAP 13 mmol/L GLUCOSE 118 (H) mg/dL BUN 43 (H) mg/dL CREATININE 0.87 mg/dL BUN/CREAT 49 CALCIUM 8.1 (L) mg/dL EGFR >60 mL/min/1.73m2 Magnesium [[id number]] (Abnormal) Collected: 01/18/17424 Specimen Information: Blood Updated: 01/18/17 0501 MAGNESIUM 2.5 (H) mg/dL Phosphorus [[id number]] (Abnormal) Collected: 01/18/17424 Specimen Information: Blood Updated: 01/18/17 0501 PHOSPHORUS 1.5 (L) mg/dL Protime-INR [[id number]] Collected: 01/18/17424 Specimen Information: Blood Updated: 01/18/17 045 INR 1.1 POCT glucose [[id number]] (Abnormal) Collected: 01/17/17 2205 GLUCOSE,POC SCREEN 124 (H) mg/dL Updated: 01/18/17 0419 POCT glucose [[id number]] (Abnormal) Collected: 01/17/17 1626 GLUCOSE,POC SCREEN 140 (H) mg/dL Updated: 01/17/17 1633 POCT glucose [[id number]] (Abnormal) Collected: 01/17/17 1132 GLUCOSE,POC SCREEN 171 (H) mg/dL Updated: 01/17/17 1150 POCT glucose [[id number]] (Abnormal) Collected: 01/17/17 0824 GLUCOSE,POC SCREEN 145 (H) mg/dL Updated: 01/17/17 0838 POCT glucose [[id number]] Collected: 01/16/17 2136 GLUCOSE,POC SCREEN 94 mg/dL Updated: 01/17/17 0608 CBC w/auto diff (reflex to manual) [[id number]] (Abnormal) Collected: 01/17/17 0328 Specimen Information: Blood [...] PLT MORPHOLOGY APPEAR NORMAL Basic metabolic panel [[id number]] (Abnormal) Collected: 01/17/17327 Specimen Information: Blood Updated: 01/17/17451 SODIUM 131 (L) mmol/L POTASSIUM 3.7 mmol/L CHLORIDE 87 (L) mmol/L CO2 31 mmol/L ANION GAP AGAP 17 mmol/L GLUCOSE 118 (H) mg/dL BUN 47 (H) mg/dL CREATININE 1.0 mg/dL BUN/CREAT 47 CALCIUM 9.0 mg/dL EGFR >60 mL/min/1.73m2 Magnesium [[id number]] Collected: 01/17/17327 Specimen Information: Blood Updated: 01/17/17451 MAGNESIUM 2.1 mg/dL Phosphorus [[id number]] Collected: 01/17/17327 Specimen Information: Blood Updated: 01/17/17 045 PHOSPHORUS 3.0 mg/dL Lactic acid, plasma [[id number]] Collected: 01/17/17328 Specimen Information: Blood Updated: 01/17/17 040 LACTIC ACID 1.6 mmol/L Protime-INR [[id number]] Collected: 01/17/17327 Specimen Information: Blood Updated: 01/17/17 [...] Jan 17 2017 3:17AM Referring Provider Line: [phone] ID: [id number] Xr Abdomen 1 View 01/16/2017 Grossly negative supine 1-view abdomen x-ray. RADIA Electronically signed by Rich Cooper MD on Jan 16 2017 3:10AM Referring Provider Line: [phone] ID: [id number] Ct Head Without Contrast 01/14/2017 [...] 1123 Date of Service: 01/19/171121 Status: Signed Internal Grinder Tender: Serena Daugherty RD, CD (Registered Dietitian) 01/19/17 [...] 01/19/171048 Date of Service: 01/19/171048 Status: Signed Internal Grinder Tender: Jose Rafael Arcos RPH (Pharmacist) Antimicrobial Stewardship Team Note IV to PO Antimicrobial Conversion Recommendation Patient: Jose Rafael Walker Attending: Mendez Gordon* Admission Date: [id number] Current Antimicrobial Medications: Anti-infectives Start Dose/Rate Route Frequency Ordered Stop 01/17/170 ciprofloxacin (CIPRO) IVPB 400 mg Ordering Provider: BRI Hernandez 400 mg 200 mL/hr over 60 Minutes Intravenous Every 12 Hours 01/17/17 9640 Current Labs: Lab Results Component Value Date/Time [...] Date of Service: 01/19/17 1030 Status: Attested Internal Grinder Tender: Karen Khoury PA-C (Physician Presser And Shaper Knitted Goods - Certified) Cosigner: Fran Bernal DO at 01/19/17 1509 Attestation signed by Fran Bernal DO at 01/19/17 1509 Patient seen and examined independently, chart reviewed. I have made changes to the above note, where appropriate, and discussed the content and mahi nges with the author. Fran Bernal DO, FACS [facility] General Surgery Progress Note Hospital Day: [...] dextrose dextrose PRN Medications acetaminophen OR acetaminophen, qsdwwbhtef-ioxggnqewxpew-srgvmsvo, carboxymethylcellulo se, cyclobenzaprine, dextrose, dextrose, dextrose, dextrose, [...] Author: JAMIE Davis Service: (none) Author Type: Club Concierge Filed: 01/19/17 1033 Date of Service: 01/19/17 1026 Status: Addendum Internal Grinder Tender: JAMIE Davis (Club Concierge) Related Notes: Original Note by JAMIE Davis (Club Concierge) filed at 01/19/17 1030 CM met with patient to discuss discharge planning. Patent owns lift chair, 4ww, FWW and pérez s extensive family support who will provide 24/7 assist (gdtr/JUDY caregiver & grdson will be living with patient after discharge. PT reports she believes patient will be appropriate to return home after discharge, no recommendations. Patient's PCP at [facility] follows [place] [place] Coumadin. JAMIE Davis Anais Morel PT - 01/19/2017 8:55 AM PDTFormatting of this note might be different from john rand original. Therapy Progress Note by Anais Foreman, PT at 01/19/17 0855 Author: Anais Foreman, PT Service: (none) Author Type: Physical Therapist Filed: 01/19/17 1106 Date of Service: 01/19/17854 Status: Signed Internal Grinder Tender: Anais Foreman PT (Physical Therapist) 01/19/17 08 PT Last Visit PT Received On 01/19/17 Reason for Treatment Spinal surgery Requires PT Follow Up Yes Follow up PT Only? No Assistance Required 1 person Matrix Bath Attendant Needed No Precautions Spinal Precautions TLSO on [...] Barriers to Discharge Pain;Physical Deficits Impacting Functional Dixon;Self-care De ficits Impacting Functional Dixon Recommendation Comments per patient- he wants to go home- stating he has lots of support- b ut he might benefit from short term skilled therapies in SNF- if family available- then home and home health would be appropriate Matt Love MD - 01/19/2017 8:40 AM PDTFormatting of this note might be different from the tomasa vega. Progress Notes by Matt Fong MD at 01/19/17839 Author: Matt Fong MD Service: Halfway House Counselor Author Type: Physician Filed: 01/19/1753 Date of Service: 01/19/17839 Status: Signed Internal Grinder Tender: Matt Fong MD (Physician) [facility] Service: Halfway House Counselor Progress Note Jose Rafael Walker 66 y.o. [...] ankylosing spondylitis, who presents to transfer from [facility] with a C7 fracture, left maxillary sinus fracture, thyroid mass and syncope. Main complaints at the [facility] facility were left sided face swelling, neck [...] thyroid mass, left maxillary sinus fra cture [place] treatment: Dilaudid, morphine, cyclobenzaprine From Dr [...] Jan 17 2017 3:17AM Referring Provider Line: [phone] ID: [id number] Xr Abdomen 1 View 01/16/2017 Grossly negative supine 1-view abdomen x-ray. RADIA Electronically signed by Rich Cooper MD on Jan 16 2017 3:10AM Referring Provider Line: [phone] ID: [id number] Ct Cervical Spine Without Contrast [...] SQ heparin for now. ENDO: DM2 with usp insulin use: Goal BG 80-180; continue treatment [...] Note by Paul Gonzales PT at 01/18/17 6840 Author: Paul Gonzales PT Service: (none) Author Type: Physical Therapist Filed: 01/18/17 2611 Date of Service: 01/18/171539 Status: Signed Internal Grinder Tender: Paul Gonzales PT (Physical Therapist) 01/18/17 1543 PT Last Visit PT Received On 01/18/17 [...] Barriers to Discharge Physical Deficits Impacting Functional Dixon;Self-care Deficit s Impacting Functional Dixon Recommendation Comments pt. at this point would be most appropriate to go to SNF to increas e funcitonal mobility to increase independence Mendez Oconnor MD - 01/18/2017 1:13 PM PDT Progress Notes by Mendez Morrison MD at 01/18/17 1313 Author: Mendez Morrison MD Service: Neurosurgery Author Type: Physician Filed: 01/21/17 1237 Date of Service: 01/18/17 1313 Status: Signed Internal Grinder Tender: Mendez Morrison MD (Physician) [facility] Service: Neurosurgery Progress Note Hospital Day: LOS: [...] at 01/17/176 PRN Medications acetaminophen OR acetaminophen, voknglsxwi-evuiktxpkdfoy-btawfwkz, carboxymethylcellulo se, dextrose, dextrose, dextrose, dextrose, docusate [...] BMI 37.77 kg/m2 | SpO2 96% 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 5/5 x4 Sensation intact No radicular [...] Procedure Component Value Units Date/Time TSH reflex [[id number]] Collected: 01/18/17424 TSH REFLEX 1.78 uIU/mL Updated: 01/18/17 1118 Procalcitonin [[id number]] Collected: 01/18/17921 PROCALCITONIN 0.11 ng/mL Updated: 01/18/17 1003 Septic Lactic Acid [[id number]] Collected: 01/18/17921 LACTIC ACID 1.0 mmol/L Updated: 05/29/17 0953 POCT glucose [[id number]] (Abnormal) Collected: 01/18/17 06 GLUCOSE,POC SCREEN 127 (H) mg/dL Updated: 01/18/17622 CBC w/auto diff (reflex to manual) [[id number]] (Abnormal) Collected: 01/18/17424 Specimen Information: Blood Updated: [...] PLT MORPHOLOGY APPEAR NORMAL Basic metabolic panel [[id number]] (Abnormal) Collected: 01/18/17424 Specimen Information: Blood Updated: 01/18/17 050 SODIUM 132 (L) mmol/L POTASSIUM 3.4 (L) mmol/L CHLORIDE 95 (L) mmol/L CO2 28 mmol/L ANION GAP AGAP 13 mmol/L GLUCOSE 118 (H) mg/dL BUN 43 (H) mg/dL CREATININE 0.87 mg/dL BUN/CREAT 49 CALCIUM 8.1 (L) mg/dL EGFR >60 mL/min/1.73m2 Magnesium [[id number]] (Abnormal) Collected: 01/18/17424 Specimen Information: Blood Updated: 01/18/17 0501 MAGNESIUM 2.5 (H) mg/dL Phosphorus [[id number]] (Abnormal) Collected: 01/18/17424 Specimen Information: Blood Updated: 01/18/17 0501 PHOSPHORUS 1.5 (L) mg/dL Protime-INR [[id number]] Collected: 01/18/17424 Specimen Information: Blood Updated: 01/18/17 0452 INR 1.1 POCT glucose [[id number]] (Abnormal) Collected: 01/17/175 GLUCOSE,POC SCREEN 124 (H) mg/dL Updated: 01/18/17 0419 POCT glucose [[id number]] (Abnormal) Collected: 01/17/17 1626 GLUCOSE,POC SCREEN 140 (H) mg/dL Updated: 01/17/17 1633 POCT glucose [[id number]] (Abnormal) Collected: 01/17/17 1132 GLUCOSE,POC SCREEN 171 (H) mg/dL Updated: 01/17/17 1150 POCT glucose [[id number]] (Abnormal) Collected: 01/17/17 0824 GLUCOSE,POC SCREEN 145 (H) mg/dL Updated: 01/17/17 0838 POCT glucose [[id number]] Collected: 01/16/17 2136 GLUCOSE,POC SCREEN 94 mg/dL Updated: 01/17/17 0608 CBC w/auto diff (reflex to manual) [[id number]] (Abnormal) Collected: 01/17/17327 Specimen Information: Blood Updated: [...] PLT MORPHOLOGY APPEAR NORMAL Basic metabolic panel [[id number]] (Abnormal) Collected: 01/17/17 0328 Specimen Information: Blood Updated: 01/17/17 0452 SODIUM 131 (L) mmol/L POTASSIUM 3.7 mmol/L CHLORIDE 87 (L) mmol/L CO2 31 mmol/L ANION GAP AGAP 17 mmol/L GLUCOSE 118 (H) mg/dL BUN 47 (H) mg/dL CREATININE 1.0 mg/dL BUN/CREAT 47 CALCIUM 9.0 mg/dL EGFR >60 mL/min/1.73m2 Magnesium [[id number]] Collected: 01/17/17327 Specimen Information: Blood Updated: 01/17/17 0452 MAGNESIUM 2.1 mg/dL Phosphorus [[id number]] Collected: 01/17/17327 Specimen Information: Blood Updated: 01/17/17 045 PHOSPHORUS 3.0 mg/dL Lactic acid, plasma [[id number]] Collected: 01/17/17328 Specimen Information: Blood Updated: 01/17/17 0401 LACTIC ACID 1.6 mmol/L Protime-INR [[id number]] Collected: 01/17/17327 Specimen Information: Blood Updated: 01/17/17 0356 INR 1.1 Potassium [[id number]] Collected: 01/16/17 174 Specimen Information: Blood Updated: 01/16/17 1817 POTASSIUM 3.8 mmol/L POCT glucose [[id number]] Collected: 01/16/17 1639 GLUCOSE,POC SCREEN 88 mg/dL Updated: 01/16/17 1801 POCT glucose [[id number]] (Abnormal) Collected: 01/16/17 1133 GLUCOSE,POC SCREEN 106 (H) mg/dL Updated: 01/16/17 1140 Potassium [[id number]] (Abnormal) Collected: 01/16/17 0845 Specimen Information: Blood Updated: 01/16/17 0919 POTASSIUM 3.2 (L) mmol/L POCT glucose [[id number]] (Abnormal) Collected: 01/16/17 0535 GLUCOSE,POC SCREEN 125 (H) mg/dL Updated: 01/16/17 0614 Phosphorus [[id number]] Collected: 01/16/17 043 Specimen Information: Blood Updated: 01/16/17 0531 PHOSPHORUS 3.2 mg/dL Basic metabolic panel [[id number]] (Abnormal) Collected: 01/16/17434 Specimen Information: Blood Updated: 01/16/17 0531 SODIUM 130 (L) mmol/L POTASSIUM 3.4 (L) mmol/L CHLORIDE 91 (L) mmol/L CO2 27 mmol/L ANION GAP AGAP 15 mmol/L GLUCOSE 121 (H) mg/dL BUN 51 (H) mg/dL CREATININE 1.1 mg/dL BUN/CREAT 46 CALCIUM 9.2 mg/dL EGFR >60 mL/min/1.73m2 Magnesium [[id number]] Collected: 01/16/17434 Specimen Information: Blood Updated: 01/16/17 0531 MAGNESIUM 2.0 mg/dL CBC w/auto diff (reflex to manual) [[id number]] (Abnormal) Collected: 01/16/17434 Specimen Information: Blood Updated: [...] 0.16 K/uL BASOPHILS ABS 0.02 K/uL Protime-INR [[id number]] Collected: 01/16/17434 Specimen Information: Blood Updated: 01/16/17 0507 INR 1.1 POCT glucose [[id number]] (Abnormal) Collected: 01/15/17 2048 GLUCOSE,POC SCREEN 131 (H) mg/dL Updated: 01/16/17 0450 POCT glucose [[id number]] (Abnormal) Collected: 01/15/17 1654 GLUCOSE,POC SCREEN 188 (H) mg/dL Updated: 01/15/17 1705 Sodium [[id number]] (Abnormal) Collected: 01/15/17 1355 Specimen Information: Blood [...] Jan 17 2017 3:17AM Referring Provider Line: [phone] ID: [id number] Xr Abdomen 1 View 01/16/2017 Grossly negative supine 1-view abdomen x-ray. RADIA Electronically signed by Rich Cooper MD on Jan 16 2017 3:10AM Referring Provider Line: [phone] ID: [id number] Ct Head Without Contrast 01/14/2017 [...] Date of Service: 01/18/17 1018 Status: Attested Internal Grinder Tender: Karen Khoury PA-C (Physician Presser And Shaper Knitted Goods - Certified) Cosigner: Fran Bernal DO at 01/18/17 1707 Attestation signed by Fran Bernal DO at 01/18/17 1707 I have made changes to the above note, where appropriate, and discussed the content and mahi nges with the author. Fran Bernal DO, [facility] General Surgery Progress Note Hospital Day: [...] w ith improving ileus. Discussed patient with Halfway House Counselor EVERARDO NG Clear liquid diet Continue pain [...] 01/17/17 2206 PRN Medications acetaminophen OR acetaminophen, twzzzmxdwx-ysmkbfhnfevwt-olepqmzz, carboxymethylcellulo se, dextrose, dextrose, dextrose, dextrose, docusate [...] 01/18/17 1007 Author: Morales Ramirez MD-R2 Service: Halfway House Counselor Author Type: Resident-Y2 Filed: 01/18/17 1015 Date of Service: 01/18/17 1007 Status: Attested Internal Grinder Tender: Morales Ramirez MD-R2 (Resident-Y2) Cosigner: Matt Fong [...] 35 mn of cct excluding all procedures. [facility] Service: Halfway House Counselor Progress Note Jose Rafael Walker 66 y.o. [...] ankylosing spondylitis, who presents to transfer from [facility] with a C7 fracture, left maxillary [...] Jan 17 2017 3:17AM Referring Provider Line: [phone] ID: [id number] Xr Abdomen 1 View 01/16/2017 Grossly negative supine 1-view abdomen x-ray. RADIA Electronically signed by Rich Cooper MD on Jan 16 2017 3:10AM Referring Provider Line: [phone] ID: [id number] Ct Cervical Spine Without Contrast [...] SQ heparin for now. ENDO: DM2 with usp insulin use: Goal BG 80-180; continue treatment [...] Notes by Mendez Morrison MD at 01/17/17 475 Author: Mendez Morrison MD Service: Neurosurgery Author Type: Physician Filed: 01/18/172057 Date of Service: 01/17/171632 Status: Signed Internal Grinder Tender: Mendez Morrison MD (Physician) [facility] Service: Neurosurgery Progress Note Hospital Day: LOS: [...] dextrose dextrose PRN Medications acetaminophen OR acetaminophen, xovkgxdlwm-pozmknxdacfof-ijnwijlc, carboxymethylcellulo se, dextrose, dextrose, dextrose, dextrose, docusate [...] BMI 37.77 kg/m2 | SpO2 97% 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 5/5 x4 Sensation intact No radicular [...] Procedure Component Value Units Date/Time POCT glucose [[id number]] (Abnormal) Collected: 01/17/17 1626 GLUCOSE,POC SCREEN 140 (H) mg/dL Updated: 01/17/17 1633 POCT glucose [[id number]] (Abnormal) Collected: 01/17/17 1132 GLUCOSE,POC SCREEN 171 (H) mg/dL Updated: 01/17/17 1150 POCT glucose [[id number]] (Abnormal) Collected: 01/17/17 0824 GLUCOSE,POC SCREEN 145 (H) mg/dL Updated: 01/17/17 0838 POCT glucose [[id number]] Collected: 01/16/17 2136 GLUCOSE,POC SCREEN 94 mg/dL Updated: 01/17/17 0608 CBC w/auto diff (reflex to manual) [[id number]] (Abnormal) Collected: 01/17/17 0328 Specimen Information: Blood [...] PLT MORPHOLOGY APPEAR NORMAL Basic metabolic panel [[id number]] (Abnormal) Collected: 01/17/17327 Specimen Information: Blood Updated: 01/17/17 045 SODIUM 131 (L) mmol/L POTASSIUM 3.7 mmol/L CHLORIDE 87 (L) mmol/L CO2 31 mmol/L ANION GAP AGAP 17 mmol/L GLUCOSE 118 (H) mg/dL BUN 47 (H) mg/dL CREATININE 1.0 mg/dL BUN/CREAT 47 CALCIUM 9.0 mg/dL EGFR >60 mL/min/1.73m2 Magnesium [[id number]] Collected: 01/17/17327 Specimen Information: Blood Updated: 01/17/17 045 MAGNESIUM 2.1 mg/dL Phosphorus [[id number]] Collected: 01/17/17327 Specimen Information: Blood Updated: 01/17/17 045 PHOSPHORUS 3.0 mg/dL Lactic acid, plasma [[id number]] Collected: 01/17/17328 Specimen Information: Blood Updated: 01/17/17 0401 LACTIC ACID 1.6 mmol/L Protime-INR [[id number]] Collected: 01/17/17327 Specimen Information: Blood Updated: 01/17/17 0356 INR 1.1 Potassium [[id number]] Collected: 01/16/17 1748 Specimen Information: Blood Updated: 01/16/17 1817 POTASSIUM 3.8 mmol/L POCT glucose [[id number]] Collected: 01/16/17 1639 GLUCOSE,POC SCREEN 88 mg/dL Updated: 01/16/17 1801 POCT glucose [[id number]] (Abnormal) Collected: 01/16/17 1133 GLUCOSE,POC SCREEN 106 (H) mg/dL Updated: 01/16/17 1140 Potassium [[id number]] (Abnormal) Collected: 01/16/17 0845 Specimen Information: Blood Updated: 01/16/17 0919 POTASSIUM 3.2 (L) mmol/L POCT glucose [[id number]] (Abnormal) Collected: 01/16/17 0535 GLUCOSE,POC SCREEN 125 (H) mg/dL Updated: 01/16/17 0614 Phosphorus [[id number]] Collected: 01/16/17 0435 Specimen Information: Blood Updated: 01/16/17 0531 PHOSPHORUS 3.2 mg/dL Basic metabolic panel [[id number]] (Abnormal) Collected: 01/16/17434 Specimen Information: Blood Updated: 01/16/17 0531 SODIUM 130 (L) mmol/L POTASSIUM 3.4 (L) mmol/L CHLORIDE 91 (L) mmol/L CO2 27 mmol/L ANION GAP AGAP 15 mmol/L GLUCOSE 121 (H) mg/dL BUN 51 (H) mg/dL CREATININE 1.1 mg/dL BUN/CREAT 46 CALCIUM 9.2 mg/dL EGFR >60 mL/min/1.73m2 Magnesium [[id number]] Collected: 01/16/17434 Specimen Information: Blood Updated: 01/16/17 0531 MAGNESIUM 2.0 mg/dL CBC w/auto diff (reflex to manual) [[id number]] (Abnormal) Collected: 01/16/17434 Specimen Information: Blood Updated: [...] 0.16 K/uL BASOPHILS ABS 0.02 K/uL Protime-INR [[id number]] Collected: 01/16/17434 Specimen Information: Blood Updated: 01/16/17 0507 INR 1.1 POCT glucose [[id number]] (Abnormal) Collected: 01/15/17 2048 GLUCOSE,POC SCREEN 131 (H) mg/dL Updated: 01/16/17 0450 POCT glucose [[id number]] (Abnormal) Collected: 01/15/17 1654 GLUCOSE,POC SCREEN 188 (H) mg/dL Updated: 01/15/17 1705 Sodium [[id number]] (Abnormal) Collected: 01/15/17 1355 Specimen Information: Blood Updated: 01/15/17 1430 SODIUM 126 (L) mmol/L POCT glucose [[id number]] (Abnormal) Collected: 01/15/17 1205 GLUCOSE,POC SCREEN 233 (H) mg/dL Updated: 01/15/17 1213 POCT glucose [[id number]] (Abnormal) Collected: 01/15/17 0606 GLUCOSE,POC SCREEN 228 (H) mg/dL Updated: 01/15/1714 POCT glucose [[id number]] (Abnormal) Collected: 01/14/17 2159 GLUCOSE,POC SCREEN 162 (H) mg/dL Updated: 01/15/17613 Basic metabolic panel [[id number]] (Abnormal) Collected: 01/15/17412 Specimen Information: Blood Updated: 01/15/17 0557 SODIUM 128 (L) mmol/L POTASSIUM 4.1 mmol/L CHLORIDE 86 (L) mmol/L CO2 32 mmol/L ANION GAP AGAP 14 mmol/L GLUCOSE 209 (H) mg/dL BUN 31 (H) mg/dL CREATININE 1.2 mg/dL BUN/CREAT 26 CALCIUM 10.5 mg/dL EGFR >60 mL/min/1.73m2 Magnesium [[id number]] Collected: 01/15/17412 Specimen Information: Blood Updated: 01/15/17 0557 MAGNESIUM 2.1 mg/dL Phosphorus [[id number]] (Abnormal) Collected: 01/15/17412 Specimen Information: Blood Updated: 01/15/17 0557 PHOSPHORUS 5.5 (H) mg/dL CBC w/auto diff (reflex to manual) [[id number]] (Abnormal) Collected: 01/15/17412 Specimen Information: Blood Updated: [...] RBC AND PLT MORPHOLOGY APPEAR NORMAL Protime-INR [[id number]] Collected: 01/15/17 0413 Specimen Information: Blood Updated: 01/15/17 0444 INR 1.1 POCT glucose [[id number]] (Abnormal) Collected: 01/14/17 1650 GLUCOSE,POC SCREEN 194 [...] Jan 17 2017 3:17AM Referring Provider Line: [phone] ID: [id number] Xr Abdomen 1 View 01/16/2017 Grossly negative supine 1-view abdomen x-ray. RADIA Electronically signed by Rich Cooper MD on Jan 16 2017 3:10AM Referring Provider Line: [phone] ID: [id number] Ct Head Without Contrast 01/14/2017 [...] Jan 16 2017 5:20AM Referring Provider Line: [phone] 425SITE ID: [id number] Ct Cervical Spine Without [...] Date of Service: 01/17/17 1105 Status: Signed Internal Grinder Tender: Paul Gonzales PT (Physical Therapist) 01/17/17 1105 [...] Barriers to Discharge Physical Deficits Impacting Functional Dixon;Self-care Deficit s Impacting Functional Dixon;Pain Recommendation Comments Home assist vs. SNF pt. [...] 01/17/17625 Date of Service: 01/17/17622 Status: Signed Internal Grinder Tender: Rebecca Sosa RN (Registered Nurse) Pt resting [...] Hernandez at 01/17/17321 Author: BRI Hernandez Service: [facility] Author Type: Advanced Registered Nicky se Practitioner Filed: 01/17/17 0640 Date of Service: 01/17/17321 Status: Signed Internal Grinder Tender: BRI Hernandez (Advanced Registered Nurse Practitioner) [facility] Service: [facility] Counselor Progress Note Jose Rafael Walker 66 y.o. [...] ankylosing spondylitis, who presents to transfer from [facility] with a C7 fracture, left maxillary sinus fracture, thyroid mass and syncope. [facility] left sided face swelling, neck [...] thyroid mass, left maxillary sinus fra cture [facility] ED treatment: Dilaudid, morphine, cyclobenzaprine From [...] Jan 17 2017 3:17AM Referring Provider Line: [phone] ID: [id number] Xr Abdomen 1 View 01/16/2017 Grossly negative supine 1-view abdomen x-ray. RADIA Electronically signed by Rich Cooper MD on Jan 16 2017 3:10AM Referring Provider Line: [phone] ID: [id number] Ct Cervical Spine Without Contrast [...] SQ heparin for now ENDO: DM2 with usp insulin use: Goal BG 80-180; continue treatment [...] Notes by Mendez Morrison MD at 01/16/17 6842 Author: Mendez Morrison MD Service: Neurosurgery Author Type: Physician Filed: 01/18/172055 Date of Service: 01/16/171457 Status: Signed Internal Grinder Tender: Mendez Morrison MD (Physician) [facility] Service: Neurosurgery Progress Note Hospital Day: LOS: [...] dextrose dextrose PRN Medications acetaminophen OR acetaminophen, hyinaaxkxi-sechbmtdxnfoi-eiyktqdx, carboxymethylcellulo se, dextrose, dextrose, dextrose, dextrose, docusate [...] BMI 37.77 kg/m2 | SpO2 93% 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 5/5 x4 Sensation intact No radicular [...] Procedure Component Value Units Date/Time POCT glucose [[id number]] (Abnormal) Collected: 01/16/17 1133 GLUCOSE,POC SCREEN 106 (H) mg/dL Updated: 01/16/17 1140 Potassium [[id number]] (Abnormal) Collected: 01/16/17 0845 Specimen Information: Blood Updated: 01/16/17 0919 POTASSIUM 3.2 (L) mmol/L POCT glucose [[id number]] (Abnormal) Collected: 01/16/17 0535 GLUCOSE,POC SCREEN 125 (H) mg/dL Updated: 01/16/17 0614 Phosphorus [[id number]] Collected: 01/16/17434 Specimen Information: Blood Updated: 01/16/17 0531 PHOSPHORUS 3.2 mg/dL Basic metabolic panel [[id number]] (Abnormal) Collected: 01/16/17434 Specimen Information: Blood Updated: 01/16/1731 SODIUM 130 (L) mmol/L POTASSIUM 3.4 (L) mmol/L CHLORIDE 91 (L) mmol/L CO2 27 mmol/L ANION GAP AGAP 15 mmol/L GLUCOSE 121 (H) mg/dL BUN 51 (H) mg/dL CREATININE 1.1 mg/dL BUN/CREAT 46 CALCIUM 9.2 mg/dL EGFR >60 mL/min/1.73m2 Magnesium [[id number]] Collected: 01/16/17434 Specimen Information: Blood Updated: 01/16/17 0531 MAGNESIUM 2.0 mg/dL CBC w/auto diff (reflex to manual) [[id number]] (Abnormal) Collected: 01/16/17434 Specimen Information: Blood Updated: [...] 0.16 K/uL BASOPHILS ABS 0.02 K/uL Protime-INR [[id number]] Collected: 01/16/17434 Specimen Information: Blood Updated: 01/16/17 0507 INR 1.1 POCT glucose [[id number]] (Abnormal) Collected: 01/15/17 2048 GLUCOSE,POC SCREEN 131 (H) mg/dL Updated: 01/16/17 045 POCT glucose [[id number]] (Abnormal) Collected: 01/15/17 1654 GLUCOSE,POC SCREEN 188 (H) mg/dL Updated: 01/15/17 1705 Sodium [[id number]] (Abnormal) Collected: 01/15/17 1355 Specimen Information: Blood Updated: 01/15/17 1430 SODIUM 126 (L) mmol/L POCT glucose [[id number]] (Abnormal) Collected: 01/15/17 1205 GLUCOSE,POC SCREEN 233 (H) mg/dL Updated: 01/15/17 1213 POCT glucose [[id number]] (Abnormal) Collected: 01/15/17 0606 GLUCOSE,POC SCREEN 228 (H) mg/dL Updated: 01/15/17 0614 POCT glucose [[id number]] (Abnormal) Collected: 01/14/17 2159 GLUCOSE,POC SCREEN 162 (H) mg/dL Updated: 01/15/1714 Basic metabolic panel [[id number]] (Abnormal) Collected: 01/15/17412 Specimen Information: Blood Updated: 01/15/17 0557 SODIUM 128 (L) mmol/L POTASSIUM 4.1 mmol/L CHLORIDE 86 (L) mmol/L CO2 32 mmol/L ANION GAP AGAP 14 mmol/L GLUCOSE 209 (H) mg/dL BUN 31 (H) mg/dL CREATININE 1.2 mg/dL BUN/CREAT 26 CALCIUM 10.5 mg/dL EGFR >60 mL/min/1.73m2 Magnesium [[id number]] Collected: 01/15/17412 Specimen Information: Blood Updated: 01/15/17 0557 MAGNESIUM 2.1 mg/dL Phosphorus [[id number]] (Abnormal) Collected: 01/15/17412 Specimen Information: Blood Updated: 01/15/17 0557 PHOSPHORUS 5.5 (H) mg/dL CBC w/auto diff (reflex to manual) [[id number]] (Abnormal) Collected: 01/15/17412 Specimen Information: Blood Updated: [...] RBC AND PLT MORPHOLOGY APPEAR NORMAL Protime-INR [[id number]] Collected: 01/15/173 Specimen Information: Blood Updated: 01/15/17443 INR 1.1 POCT glucose [[id number]] (Abnormal) Collected: 01/14/17 1650 GLUCOSE,POC SCREEN 194 (H) mg/dL Updated: 01/14/17 1705 POCT glucose [[id number]] (Abnormal) Collected: 01/14/17 1158 GLUCOSE,POC SCREEN 227 (H) mg/dL Updated: 01/14/17 1205 POCT glucose [[id number]] (Abnormal) Collected: 01/14/17 0553 GLUCOSE,POC SCREEN 168 (H) mg/dL Updated: 01/14/17 0607 CBC w/auto diff (reflex to manual) [[id number]] (Abnormal) Collected: 01/14/17357 Specimen Information: Blood Updated: [...] PLT MORPHOLOGY APPEAR NORMAL Basic metabolic panel [[id number]] (Abnormal) Collected: 01/14/17357 Specimen Information: Blood Updated: 01/14/17 0510 SODIUM 130 (L) mmol/L POTASSIUM 3.8 mmol/L CHLORIDE 91 (L) mmol/L CO2 30 mmol/L ANION GAP AGAP 13 mmol/L GLUCOSE 152 (H) mg/dL BUN 18 mg/dL CREATININE 0.9 mg/dL BUN/CREAT 20 CALCIUM 8.8 mg/dL EGFR >60 mL/min/1.73m2 Magnesium [[id number]] Collected: 01/14/17357 Specimen Information: Blood Updated: 01/14/17 0510 MAGNESIUM 1.9 mg/dL Phosphorus [[id number]] Collected: 01/14/17357 Specimen Information: Blood Updated: 01/14/17 0510 PHOSPHORUS 3.6 mg/dL Protime-INR [[id number]] Collected: 01/14/17357 Specimen Information: Blood Updated: 01/14/17 042 INR 1.1 POCT glucose [[id number]] (Abnormal) Collected: 01/14/17 0146 GLUCOSE,POC SCREEN 169 (H) mg/dL Updated: 01/14/17 0152 POCT glucose [[id number]] (Abnormal) Collected: 01/13/17 2137 GLUCOSE,POC SCREEN 153 (H) mg/dL Updated: 01/13/17 2144 POCT glucose [[id number]] (Abnormal) Collected: 01/13/17 1657 GLUCOSE,POC SCREEN 183 (H) mg/dL Updated: 01/13/17 1705 POCT glucose [[id number]] (Abnormal) Collected: 01/13/17 1459 GLUCOSE,POC SCREEN 188 [...] Jan 16 2017 3:10AM Referring Provider Line: [phone] ID: [id number] Ct Head Without Contrast 01/14/2017 [...] Jan 10 2017 12:26AM Referring Provider Line: [phone] ID: [id number] Mri Cervical Spine Without Contrast [...] Jan 10 2017 12:50AM Referring Provider Line: [phone] ID: [id number] Xr Chest 1 View 01/09/2017 [...] 143 Date of Service: 01/16/171434 Status: Signed Internal Grinder Tender: Paul Gonzales PT (Physical Therapist) 01/16/17 1435 [...] at 01/16/17 0853 Author: KAMRON Corral Service: [facility] Counselor Author Type: Resident-Y2 Filed: 01/16/17 1738 Date of Service: 01/16/1782 Status: Attested Addendum Internal Grinder Tender: KAMRON Corral (Resident-Y2) Related Notes: Original Note [...] minutes of critical care time spent . [facility] Service: [facility] Counselor Progress Note Jose Rafael Walker 66 y.o. [...] ankylosing spondylitis, who presents to transfer from [facility] with a C7 fracture, left maxillary sinus fracture, thyroid mass and syncope. Main complaints at the [facility] were left sided face swelling, neck [...] Jan 16 2017 3:10AM Referring Provider Line: [phone] ID: [id number] Ct Head Without Contrast 01/14/2017 [...] Jan 10 2017 12:26AM Referring Provider Line: [phone] ID: [id number] Mri Cervical Spine Without Contrast [...] Jan 10 2017 12:50AM Referring Provider Line: [phone] ID: [id number] Mri C-spine Without Contrast 01/07/2017 [...] 07 2017 1:18AM Referring Prov ider Line: [phone] ID: [id number] Xr Chest 1 View 01/09/2017 [...] 07 2017 1:30AM Referring Pro vider Line: [phone] ID: [id number] Echo Cardiac Adult Limited 01/07/2017 [...] Heparin 5000 units Q8H 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 Mendez Oconnor MD - 01/15/2017 11:52 AM PDT Progress Notes by Mendez Morrison MD at 01/15/17 1152 Author: Mendez Morrison MD Service: Neurosurgery Author Type: Physician Filed: 01/15/17 1156 Date of Service: 01/15/17 1152 Status: Signed Internal Grinder Tender: Mendez Morrison MD (Physician) [facility] Service: Neurosurgery Progress Note Hospital Day: LOS: [...] 01/15/17 0947 PRN Medications acetaminophen OR acetaminophen, pyavszwsdi-alawvnerdffik-idmujtfm, carboxymethylcellulo se, dextrose, dextrose, dextrose, dextrose, docusate [...] BMI 37.77 kg/m2 | SpO2 96% 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 5/5 x4 Sensation intact No radicular [...] Procedure Component Value Units Date/Time POCT glucose [[id number]] (Abnormal) Collected: 01/15/17 0606 GLUCOSE,POC SCREEN 228 (H) mg/dL Updated: 01/15/17613 POCT glucose [[id number]] (Abnormal) Collected: 01/14/17 2159 GLUCOSE,POC SCREEN 162 (H) mg/dL Updated: 01/15/17613 Basic metabolic panel [[id number]] (Abnormal) Collected: 01/15/17412 Specimen Information: Blood Updated: 01/15/1757 SODIUM 128 (L) mmol/L POTASSIUM 4.1 mmol/L CHLORIDE 86 (L) mmol/L CO2 32 mmol/L ANION GAP AGAP 14 mmol/L GLUCOSE 209 (H) mg/dL BUN 31 (H) mg/dL CREATININE 1.2 mg/dL BUN/CREAT 26 CALCIUM 10.5 mg/dL EGFR >60 mL/min/1.73m2 Magnesium [[id number]] Collected: 01/15/17412 Specimen Information: Blood Updated: 01/15/17 0557 MAGNESIUM 2.1 mg/dL Phosphorus [[id number]] (Abnormal) Collected: 01/15/17412 Specimen Information: Blood Updated: 01/15/17 0557 PHOSPHORUS 5.5 (H) mg/dL CBC w/auto diff (reflex to manual) [[id number]] (Abnormal) Collected: 01/15/17412 Specimen Information: Blood Updated: [...] RBC AND PLT MORPHOLOGY APPEAR NORMAL Protime-INR [[id number]] Collected: 01/15/17412 Specimen Information: Blood Updated: 01/15/17443 INR 1.1 POCT glucose [[id number]] (Abnormal) Collected: 01/14/17 1650 GLUCOSE,POC SCREEN 194 (H) mg/dL Updated: 01/14/17 1705 POCT glucose [[id number]] (Abnormal) Collected: 01/14/17 1158 GLUCOSE,POC SCREEN 227 (H) mg/dL Updated: 01/14/17 1205 POCT glucose [[id number]] (Abnormal) Collected: 01/14/17 0553 GLUCOSE,POC SCREEN 168 (H) mg/dL Updated: 01/14/17 0607 CBC w/auto diff (reflex to manual) [[id number]] (Abnormal) Collected: 01/14/17357 Specimen Information: Blood Updated: [...] PLT MORPHOLOGY APPEAR NORMAL Basic metabolic panel [[id number]] (Abnormal) Collected: 01/14/17357 Specimen Information: Blood Updated: 01/14/17 0510 SODIUM 130 (L) mmol/L POTASSIUM 3.8 mmol/L CHLORIDE 91 (L) mmol/L CO2 30 mmol/L ANION GAP AGAP 13 mmol/L GLUCOSE 152 (H) mg/dL BUN 18 mg/dL CREATININE 0.9 mg/dL BUN/CREAT 20 CALCIUM 8.8 mg/dL EGFR >60 mL/min/1.73m2 Magnesium [[id number]] Collected: 01/14/17357 Specimen Information: Blood Updated: 01/14/17 0510 MAGNESIUM 1.9 mg/dL Phosphorus [[id number]] Collected: 01/14/17357 Specimen Information: Blood Updated: 01/14/17 0510 PHOSPHORUS 3.6 mg/dL Protime-INR [[id number]] Collected: 01/14/17357 Specimen Information: Blood Updated: 01/14/17428 INR 1.1 POCT glucose [[id number]] (Abnormal) Collected: 01/14/17 0146 GLUCOSE,POC SCREEN 169 (H) mg/dL Updated: 01/14/17 0152 POCT glucose [[id number]] (Abnormal) Collected: 01/13/17 2137 GLUCOSE,POC SCREEN 153 (H) mg/dL Updated: 01/13/17 2144 POCT glucose [[id number]] (Abnormal) Collected: 01/13/17 1657 GLUCOSE,POC SCREEN 183 (H) mg/dL Updated: 01/13/17 170 POCT glucose [[id number]] (Abnormal) Collected: 01/13/17 1459 GLUCOSE,POC SCREEN 188 (H) mg/dL Updated: 01/13/17 170 POCT glucose [[id number]] (Abnormal) Collected: 01/13/17 0928 GLUCOSE,POC SCREEN 141 (H) mg/dL Updated: 01/13/1730 CBC w/auto diff (reflex to manual) [[id number]] (Abnormal) Collected: 01/13/17413 Specimen Information: Blood Updated: [...] PLT MORPHOLOGY APPEAR NORMAL Basic metabolic panel [[id number]] (Abnormal) Collected: 01/13/17413 Specimen Information: Blood Updated: 01/13/17504 SODIUM 133 (L) mmol/L POTASSIUM 4.2 mmol/L CHLORIDE 93 (L) mmol/L CO2 31 mmol/L ANION GAP AGAP 13 mmol/L GLUCOSE 127 (H) mg/dL BUN 23 mg/dL CREATININE 1.0 mg/dL BUN/CREAT 23 CALCIUM 9.1 mg/dL EGFR >60 mL/min/1.73m2 Magnesium [[id number]] Collected: 01/13/17413 Specimen Information: Blood Updated: 01/13/17 0505 MAGNESIUM 2.0 mg/dL Phosphorus [[id number]] Collected: 01/13/17413 Specimen Information: Blood Updated: 01/13/17 050 PHOSPHORUS 4.3 mg/dL Protime-INR [[id number]] Collected: 01/13/17413 Specimen Information: Blood Updated: 01/13/17440 INR 1.1 POCT glucose [[id number]] (Abnormal) Collected: 01/13/17219 GLUCOSE,POC SCREEN 136 (H) mg/dL Updated: 01/13/17223 Type and screen [[id number]] Collected: 01/09/17442 Specimen Information: Blood Updated: 01/12/172325 ABO/RH(D) A POSITIVE ANTIBODY SCREEN NEGATIVE ARM BAND NUMBER [id number] UNIT NUMBER [id number] BLOOD COMPONENT TYPE LEUKODEPLETED PC UNIT DIVISION 00 STATUS OF UNIT ISSUED,FINAL TRANSFUSION STATUS OK TO TRANSFUSE CROSSMATCH RESULT COMPATIBLE UNIT NUMBER [id number] BLOOD COMPONENT TYPE LEUKODEPLETED PC UNIT DIVISION 00 STATUS OF UNIT ISSUED,FINAL TRANSFUSION STATUS OK TO TRANSFUSE CROSSMATCH RESULT COMPATIBLE UNIT NUMBER [id number] BLOOD COMPONENT TYPE LEUKODEPLETED PC UNIT DIVISION 00 STATUS OF UNIT REL FROM ALLOC TRANSFUSION STATUS OK TO TRANSFUSE CROSSMATCH RESULT -- Result: COMPATIBLE Testing performed at [facility];[address] [place] [address] UNIT NUMBER [id number] BLOOD COMPONENT TYPE LEUKODEPLETED PC UNIT DIVISION 00 STATUS OF UNIT REL FROM ALLOC TRANSFUSION STATUS OK TO TRANSFUSE CROSSMATCH RESULT COMPATIBLE POCT glucose [[id number]] (Abnormal) Collected: 01/12/17 1643 GLUCOSE,POC SCREEN 178 (H) mg/dL Updated: 01/12/17 2322 POCT glucose [[id number]] (Abnormal) Collected: 01/12/17 1214 GLUCOSE,POC SCREEN 157 [...] Jan 10 2017 12:26AM Referring Provider Line: [phone] ID: [id number] Mri Cervical Spine Without Contrast [...] Jan 10 2017 12:50AM Referring Provider Line: [phone] ID: [id number] Xr Chest 1 View 01/09/2017 [...] Date of Service: 01/15/17 1024 Status: Signed Internal Grinder Tender: Brook Beasley PT (Physical Therapist) 01/15/17 1024 [...] Barriers to Discharge Physical Deficits Impacting Functional Dixon;Self-care Deficit s Impacting Functional Dixon;Pain Recommendation Comments Pt continues to verify that [...] 01/15/17938 Date of Service: 01/15/17938 Status: Signed Internal Grinder Tender: REGINALDO Swan (Massage Therapist) 01/15/17938 MT Last Visit MT Received On 01/15/17 MT Therapy Visit Not available (Sleeping) Carlos Moses ARNP - 01/15/2017 3:26 AM PDTFormatting of this note might be different from th e original. Progress Notes by BRI Hoff at 01/15/17325 Author: BRI Hoff Service: Halfway House Counselor Author Type: Advanced Registered Nicky se Practitioner Filed: 01/15/17624 Date of Service: 01/15/17325 Status: Signed Internal Grinder Tender: BRI Hoff (Advanced Registered Nurse Practitioner) [facility] Service: Halfway House Counselor Progress Note Jose Rafael Walker 66 y.o. [...] ankylosing spondylitis, who presents to transfer from [facility] with a C7 fracture, left maxillary sinus fracture, thyroid mass and syncope. Main complaints at the [facility] facility were left sided face swelling, neck [...] Jan 10 2017 12:26AM Referring Provider Line: [phone] ID: [id number] Mri Cervical Spine Without Contrast [...] Jan 10 2017 12:50AM Referring Provider Line: [phone] ID: [id number] Mri C-spine Without Contrast 01/07/2017 [...] 07 2017 1:18AM Referring Prov ider Line: [phone] ID: [id number] Xr Chest 1 View 01/09/2017 [...] 07 2017 1:30AM Referring Pro vider Line: [phone] ID: [id number] Echo Cardiac Adult Limited 01/07/2017 [...] pulmonary issues; monitor closely GI/NUTRITION: Diabetic Diet; Hosting Engineer following RENAL/LYTES: Renal function appears to be [...] Started on Subcutaneous Heparin 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: Goal BG 80-180; continue treatment [...] 1151 Date of Service: 01/14/172001 Status: Signed Internal Grinder Tender: Mendez Morrison MD (Physician) [facility] Service: Neurosurgery Progress Note Hospital Day: LOS: [...] dextrose dextrose PRN Medications acetaminophen OR acetaminophen, nsgarltqhj-lpdypvaphunsv-rihnccve, carboxymethylcellulo se, dextrose, dextrose, dextrose, dextrose, docusate [...] BMI 38.37 kg/m2 | SpO2 98% 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 5/5 x4 Sensation intact No radicular [...] Procedure Component Value Units Date/Time POCT glucose [[id number]] (Abnormal) Collected: 01/14/17 1650 GLUCOSE,POC SCREEN 194 (H) mg/dL Updated: 01/14/17 1705 POCT glucose [[id number]] (Abnormal) Collected: 01/14/17 1158 GLUCOSE,POC SCREEN 227 (H) mg/dL Updated: 01/14/17 1205 POCT glucose [[id number]] (Abnormal) Collected: 01/14/17 0553 GLUCOSE,POC SCREEN 168 (H) mg/dL Updated: 01/14/17 0607 CBC w/auto diff (reflex to manual) [[id number]] (Abnormal) Collected: 01/14/17357 Specimen Information: Blood Updated: [...] PLT MORPHOLOGY APPEAR NORMAL Basic metabolic panel [[id number]] (Abnormal) Collected: 01/14/17357 Specimen Information: Blood Updated: 01/14/17 0510 SODIUM 130 (L) mmol/L POTASSIUM 3.8 mmol/L CHLORIDE 91 (L) mmol/L CO2 30 mmol/L ANION GAP AGAP 13 mmol/L GLUCOSE 152 (H) mg/dL BUN 18 mg/dL CREATININE 0.9 mg/dL BUN/CREAT 20 CALCIUM 8.8 mg/dL EGFR >60 mL/min/1.73m2 Magnesium [[id number]] Collected: 01/14/17357 Specimen Information: Blood Updated: 01/14/17 0510 MAGNESIUM 1.9 mg/dL Phosphorus [[id number]] Collected: 01/14/17357 Specimen Information: Blood Updated: 01/14/17 0510 PHOSPHORUS 3.6 mg/dL Protime-INR [[id number]] Collected: 01/14/17357 Specimen Information: Blood Updated: 01/14/17 0429 INR 1.1 POCT glucose [[id number]] (Abnormal) Collected: 01/14/17 0146 GLUCOSE,POC SCREEN 169 (H) mg/dL Updated: 01/14/17 0152 POCT glucose [[id number]] (Abnormal) Collected: 01/13/17 2137 GLUCOSE,POC SCREEN 153 (H) mg/dL Updated: 01/13/17 2144 POCT glucose [[id number]] (Abnormal) Collected: 01/13/17 1657 GLUCOSE,POC SCREEN 183 (H) mg/dL Updated: 01/13/17 170 POCT glucose [[id number]] (Abnormal) Collected: 01/13/17 1459 GLUCOSE,POC SCREEN 188 (H) mg/dL Updated: 01/13/171704 POCT glucose [[id number]] (Abnormal) Collected: 01/13/17 0928 GLUCOSE,POC SCREEN 141 (H) mg/dL Updated: 01/13/1730 CBC w/auto diff (reflex to manual) [[id number]] (Abnormal) Collected: 01/13/17413 Specimen Information: Blood Updated: [...] PLT MORPHOLOGY APPEAR NORMAL Basic metabolic panel [[id number]] (Abnormal) Collected: 01/13/17413 Specimen Information: Blood Updated: 01/13/17504 SODIUM 133 (L) mmol/L POTASSIUM 4.2 mmol/L CHLORIDE 93 (L) mmol/L CO2 31 mmol/L ANION GAP AGAP 13 mmol/L GLUCOSE 127 (H) mg/dL BUN 23 mg/dL CREATININE 1.0 mg/dL BUN/CREAT 23 CALCIUM 9.1 mg/dL EGFR >60 mL/min/1.73m2 Magnesium [[id number]] Collected: 01/13/17413 Specimen Information: Blood Updated: 01/13/17504 MAGNESIUM 2.0 mg/dL Phosphorus [[id number]] Collected: 01/13/17413 Specimen Information: Blood Updated: 01/13/17504 PHOSPHORUS 4.3 mg/dL Protime-INR [[id number]] Collected: 01/13/17413 Specimen Information: Blood Updated: 05/24/17 0441 INR 1.1 POCT glucose [[id number]] (Abnormal) Collected: 01/13/17 0220 GLUCOSE,POC SCREEN 136 (H) mg/dL Updated: 01/13/17223 Type and screen [[id number]] Collected: 01/09/17442 Specimen Information: Blood Updated: 01/12/172325 ABO/RH(D) A POSITIVE ANTIBODY SCREEN NEGATIVE ARM BAND NUMBER [id number] UNIT NUMBER [id number] BLOOD COMPONENT TYPE LEUKODEPLETED PC UNIT DIVISION 00 STATUS OF UNIT ISSUED,FINAL TRANSFUSION STATUS OK TO TRANSFUSE CROSSMATCH RESULT COMPATIBLE UNIT NUMBER [id number] BLOOD COMPONENT TYPE LEUKODEPLETED PC UNIT DIVISION 00 STATUS OF UNIT ISSUED,FINAL TRANSFUSION STATUS OK TO TRANSFUSE CROSSMATCH RESULT COMPATIBLE UNIT NUMBER [id number] BLOOD COMPONENT TYPE LEUKODEPLETED PC UNIT DIVISION 00 STATUS OF UNIT REL FROM ALLOC TRANSFUSION STATUS OK TO TRANSFUSE CROSSMATCH RESULT -- Result: COMPATIBLE Testing performed at [address] [address] UNIT NUMBER [id number] BLOOD COMPONENT TYPE LEUKODEPLETED PC UNIT DIVISION 00 STATUS OF UNIT REL FROM ALLOC TRANSFUSION STATUS OK TO TRANSFUSE CROSSMATCH RESULT COMPATIBLE POCT glucose [[id number]] (Abnormal) Collected: 01/12/17 1643 GLUCOSE,POC SCREEN 178 (H) mg/dL Updated: 01/12/172321 POCT glucose [[id number]] (Abnormal) Collected: 01/12/17 1214 GLUCOSE,POC SCREEN 157 (H) mg/dL Updated: 01/12/17 1216 Basic metabolic panel [[id number]] (Abnormal) Collected: 01/12/17557 Specimen Information: Blood Updated: 01/12/17718 SODIUM 135 mmol/L POTASSIUM 4.7 mmol/L CHLORIDE 97 (L) mmol/L CO2 31 mmol/L ANION GAP AGAP 12 mmol/L GLUCOSE 230 (H) mg/dL BUN 19 mg/dL CREATININE 0.8 mg/dL BUN/CREAT 24 CALCIUM 9.7 mg/dL EGFR >60 mL/min/1.73m2 Magnesium [[id number]] Collected: 01/12/17557 Specimen Information: Blood Updated: 01/12/17718 MAGNESIUM 2.3 mg/dL Phosphorus [[id number]] Collected: 01/12/17557 Specimen Information: Blood Updated: 01/12/17 0719 PHOSPHORUS 2.9 mg/dL CBC w/auto diff (reflex to manual) [[id number]] (Abnormal) Collected: 01/12/17557 Specimen Information: Blood Updated: [...] RBC AND PLT MORPHOLOGY APPEAR NORMAL Protime-INR [[id number]] Collected: 01/12/17557 Specimen Information: Blood Updated: 01/12/1740 INR 1.1 POCT glucose [[id number]] (Abnormal) Collected: 01/12/17 0539 GLUCOSE,POC SCREEN 287 (H) mg/dL Updated: 01/12/17 0554 POCT glucose [[id number]] (Abnormal) Collected: 01/11/171999 GLUCOSE,POC SCREEN 161 (H) [...] Jan 10 2017 12:26AM Referring Provider Line: [phone] ID: [id number] Mri Cervical Spine Without Contrast [...] Jan 10 2017 12:50AM Referring Provider Line: [phone] ID: [id number] Xr Chest 1 View 01/09/2017 [...] Date of Service: 01/14/17 1632 Status: Signed Internal Grinder Tender: REGINALDO Swan (Massage Therapist) 01/14/17 1631 Massage Therapy Interventions Locations Back;Neck;Shoulder Massage Therapy Technique Effleurage;Petrissage;Mauritanian massage Response to treatment Decreased muscle tension onver jacki Transaction, Provider Unknown - 01/14/2017 10:56 AM PDT Progress Notes by Serena Daugherty RD, CD at 01/14/17 1056 Author: Serena Daugherty RD, CD Service: (none) Author Type: Registered Dietitian Filed: 01/14/17 1057 Date of Service: 01/14/17 1056 Status: Signed Internal Grinder Tender: Serena Daugherty RD, CD (Registered Dietitian) 01/14/17 [...] Estimated Energy Needs Total Energy Estimated Needs [phone] kcal/day Method for Estimating Needs 25-30 kcal/kg [...] (none) Author Type: Physical Therapist Filed: 01/14/17 2546 Date of Service: 01/14/17 1033 Status: Signed Internal Grinder Tender: Brook Beasley PT (Physical Therapist) 01/14/17 1033 [...] Barriers to Discharge Physical Deficits Impacting Functional Dixon;Self-care Deficit s Impacting Functional Dixon Recommendation Comments Pt reports that his grandchildren will move in with him to give him home assistance. If this is feasible pt. should be able to return to home with initial 24/ 7 assistance. If not pt. would benefit from SNF. Physical Therapy / Order Entry Representative Student educationally participated in the [facility] of care under the direct supervision of the licensed therapist. The patient was in agr eement with student's role in care. Carlos Moses ARNP - 01/14/2017 3:02 AM PDTFormatting of this note might be different from john rand original. Progress Notes by BRI Hoff at 01/14/17301 Author: BRI Hoff Service: Halfway House Counselor Author Type: Advanced Registered Nicky se Practitioner Filed: 01/14/17600 Date of Service: 01/14/17301 Status: Signed Internal Grinder Tender: BRI Hoff (Advanced Registered Nurse Practitioner) [facility] Service: Halfway House Counselor Progress Note Jose Rafael Walker 66 y.o. [...] ankylosing spondylitis, who presents to transfer from [facility] with a C7 fracture, left maxillary sinus fracture, thyroid mass and syncope. Main complaints at the [facility] facility were left sided face swelling, neck [...] thyroid mass, left maxillary sinus fra cture [facility] ED treatment: Dilaudid, morphine, cyclobenzaprine From [...] Jan 10 2017 12:26AM Referring Provider Line: [phone] ID: [id number] Mri Cervical Spine Without Contrast [...] Jan 10 2017 12:50AM Referring Provider Line: [phone] ID: [id number] Mri C-spine Without Contrast 01/07/2017 [...] 07 2017 1:18AM Referring Prov ider Line: [phone] ID: [id number] Xr Chest 1 View 01/09/2017 [...] 07 2017 1:30AM Referring Pro vider Line: [phone] ID: [id number] Echo Cardiac Adult Limited 01/07/2017 [...] Neurosurgery and He matology 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 DC plan remains home with 24 hour assistance from family. CM will cont to monitor. onver jacki Transaction, Provider Unknown - 01/13/2017 1:18 PM PDT Therapy Progress Note by Paul Gonzales, PT at 01/13/17 1761 Author: Paul Gonzales PT Service: (none) Author Type: Physical Therapist Filed: 01/13/17 3862 Date of Service: 01/13/173 Status: Signed Internal Grinder Tender: Paul Gonzales PT (Physical Therapist) 01/13/17 1312 PT Last Visit PT Received On 01/13/17 [...] rtance of maintianing position. KARISSA gross present [facility] session Cognition Overall Cognitive Status WFL Orientation [...] SNF but could change as pt. 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 5/5 x4 Sensation intact No radicular [...] Procedure Component Value Units Date/Time POCT glucose [[id number]] (Abnormal) Collected: 01/13/17927 GLUCOSE,POC SCREEN 141 (H) mg/dL Updated: 01/13/17929 CBC w/auto diff (reflex to manual) [[id number]] (Abnormal) Collected: 01/13/17413 Specimen Information: Blood Updated: [...] PLT MORPHOLOGY APPEAR NORMAL Basic metabolic panel [[id number]] (Abnormal) Collected: 01/13/17413 Specimen Information: Blood Updated: 01/13/17504 SODIUM 133 (L) mmol/L POTASSIUM 4.2 mmol/L CHLORIDE 93 (L) mmol/L CO2 31 mmol/L ANION GAP AGAP 13 mmol/L GLUCOSE 127 (H) mg/dL BUN 23 mg/dL CREATININE 1.0 mg/dL BUN/CREAT 23 CALCIUM 9.1 mg/dL EGFR >60 mL/min/1.73m2 Magnesium [[id number]] Collected: 01/13/17413 Specimen Information: Blood Updated: 01/13/17504 MAGNESIUM 2.0 mg/dL Phosphorus [[id number]] Collected: 01/13/17413 Specimen Information: Blood Updated: 01/13/17504 PHOSPHORUS 4.3 mg/dL Protime-INR [[id number]] Collected: 01/13/17413 Specimen Information: Blood Updated: 01/13/17440 INR 1.1 POCT glucose [[id number]] (Abnormal) Collected: 01/13/17219 GLUCOSE,POC SCREEN 136 (H) mg/dL Updated: 01/13/17223 Type and screen [[id number]] Collected: 01/09/17442 Specimen Information: Blood Updated: 01/12/172325 ABO/RH(D) A POSITIVE ANTIBODY SCREEN NEGATIVE ARM BAND NUMBER [id number] UNIT NUMBER [id number] BLOOD COMPONENT TYPE LEUKODEPLETED PC UNIT DIVISION 00 STATUS OF UNIT ISSUED,FINAL TRANSFUSION STATUS OK TO TRANSFUSE CROSSMATCH RESULT COMPATIBLE UNIT NUMBER [id number] BLOOD COMPONENT TYPE LEUKODEPLETED PC UNIT DIVISION 00 STATUS OF UNIT ISSUED,FINAL TRANSFUSION STATUS OK TO TRANSFUSE CROSSMATCH RESULT COMPATIBLE UNIT NUMBER [id number] BLOOD COMPONENT TYPE LEUKODEPLETED PC UNIT DIVISION 00 STATUS OF UNIT REL FROM ALLOC TRANSFUSION STATUS OK TO TRANSFUSE CROSSMATCH RESULT -- Result: COMPATIBLE Testing performed at [facility];[address] [place] [address] UNIT NUMBER [id number] BLOOD COMPONENT TYPE LEUKODEPLETED PC UNIT DIVISION 00 STATUS OF UNIT REL FROM ALLOC TRANSFUSION STATUS OK TO TRANSFUSE CROSSMATCH RESULT COMPATIBLE POCT glucose [[id number]] (Abnormal) Collected: 01/12/17 1643 GLUCOSE,POC SCREEN 178 (H) mg/dL Updated: 01/12/17 2322 POCT glucose [[id number]] (Abnormal) Collected: 01/12/17 1214 GLUCOSE,POC SCREEN 157 (H) mg/dL Updated: 01/12/176 Basic metabolic panel [[id number]] (Abnormal) Collected: 01/12/17557 Specimen Information: Blood Updated: 01/12/17718 SODIUM 135 mmol/L POTASSIUM 4.7 mmol/L CHLORIDE 97 (L) mmol/L CO2 31 mmol/L ANION GAP AGAP 12 mmol/L GLUCOSE 230 (H) mg/dL BUN 19 mg/dL CREATININE 0.8 mg/dL BUN/CREAT 24 CALCIUM 9.7 mg/dL EGFR >60 mL/min/1.73m2 Magnesium [[id number]] Collected: 01/12/17557 Specimen Information: Blood Updated: 01/12/17718 MAGNESIUM 2.3 mg/dL Phosphorus [[id number]] Collected: 01/12/17557 Specimen Information: Blood Updated: 01/12/17718 PHOSPHORUS 2.9 mg/dL CBC w/auto diff (reflex to manual) [[id number]] (Abnormal) Collected: 01/12/17557 Specimen Information: Blood Updated: [...] RBC AND PLT MORPHOLOGY APPEAR NORMAL Protime-INR [[id number]] Collected: 01/12/17557 Specimen Information: Blood Updated: 01/12/1740 INR 1.1 POCT glucose [[id number]] (Abnormal) Collected: 01/12/17 0539 GLUCOSE,POC SCREEN 287 (H) mg/dL Updated: 01/12/1754 POCT glucose [[id number]] (Abnormal) Collected: 01/11/17 2000 GLUCOSE,POC SCREEN 161 (H) mg/dL Updated: 01/11/172005 POCT glucose [[id number]] (Abnormal) Collected: 01/11/17 1427 GLUCOSE,POC SCREEN 166 (H) mg/dL Updated: 01/11/17 1709 Sputum cult w/ gram stain [[id number]] Collected: 01/09/17 1844 Specimen Information: Nasopharyngeal from Sputum Updated: 01/11/17 1117 Specimen Description SPUTUM GRAM STAIN GREATER THAN 10 WBCS/LPF GRAM STAIN LESS THAN 10 SEC/LPF GRAM STAIN 1+ GRAM STAIN GRAM POSITIVE COCCI CULTURE 1+ NORMAL UPPER RESPIRATORY BILLY POCT glucose [[id number]] (Abnormal) Collected: 01/11/17 1006 GLUCOSE,POC SCREEN 206 (H) mg/dL Updated: 01/11/17 1010 POCT glucose [[id number]] (Abnormal) Collected: 01/11/17 0626 GLUCOSE,POC SCREEN 186 (H) mg/dL Updated: 01/11/17 0637 Basic metabolic panel [[id number]] (Abnormal) Collected: 01/11/17406 Specimen Information: Blood Updated: 01/11/17521 SODIUM 137 mmol/L POTASSIUM 4.8 mmol/L CHLORIDE 103 mmol/L CO2 27 mmol/L ANION GAP AGAP 12 mmol/L GLUCOSE 185 (H) mg/dL BUN 13 mg/dL CREATININE 0.8 mg/dL BUN/CREAT 16 CALCIUM 8.6 mg/dL EGFR >60 mL/min/1.73m2 Magnesium [[id number]] (Abnormal) Collected: 01/11/17406 Specimen Information: Blood Updated: 01/11/17521 MAGNESIUM 2.5 (H) mg/dL Phosphorus [[id number]] Collected: 01/11/17406 Specimen Information: Blood Updated: 01/11/17521 PHOSPHORUS 2.6 mg/dL CBC w/auto diff (reflex to manual) [[id number]] (Abnormal) Collected: 01/11/17406 Specimen Information: Blood Updated: [...] RBC AND PLT MORPHOLOGY APPEAR NORMAL Protime-INR [[id number]] Collected: 01/11/17 0407 Specimen Information: Blood Updated: 01/11/17 0445 INR 1.1 POCT glucose [[id number]] (Abnormal) Collected: 01/11/17 0209 GLUCOSE,POC SCREEN 241 (H) mg/dL Updated: 01/11/17 0236 POCT glucose [[id number]] (Abnormal) Collected: 01/10/17 2222 GLUCOSE,POC SCREEN 291 (H) mg/dL Updated: 01/10/17 2226 POCT glucose [[id number]] (Abnormal) Collected: 01/10/17 1844 GLUCOSE,POC SCREEN 209 (H) mg/dL Updated: 01/10/17 1857 POCT glucose [[id number]] (Abnormal) Collected: 01/10/17 1503 GLUCOSE,POC SCREEN 116 (H) mg/dL Updated: 01/10/17 1857 Magnesium [[id number]] Collected: 01/10/17 1607 Specimen Information: Blood Updated: 01/10/17 1631 MAGNESIUM 2.0 mg/dL Phosphorus [[id number]] Collected: 01/10/17 1607 Specimen Information: Blood Updated: 01/10/17 1631 PHOSPHORUS 3.9 mg/dL Potassium [[id number]] Collected: 01/10/17 1607 Specimen Information: Blood Updated: 01/10/17 1631 POTASSIUM 3.8 mmol/L POCT glucose [[id number]] (Abnormal) Collected: 01/10/17 0935 GLUCOSE,POC SCREEN 127 (H) mg/dL Updated: 01/10/17 1312 POCT glucose [[id number]] (Abnormal) Collected: 01/10/17 1258 GLUCOSE,POC SCREEN 119 (H) mg/dL Updated: 01/10/17 1312 POCT glucose [[id number]] (Abnormal) Collected: 01/10/17 0833 GLUCOSE,POC SCREEN 121 [...] Jan 10 2017 12:26AM Referring Provider Line: [phone] ID: [id number] Mri Cervical Spine Without Contrast [...] Jan 10 2017 12:50AM Referring Provider Line: [phone] ID: [id number] Mri C-spine Without Contrast 01/07/2017 [...] 07 2017 1:18AM Referring Prov ider Line: [phone] ID: [id number] Xr Chest 1 View 01/09/2017 [...] 07 2017 1:30AM Referring Pro vider Line: [phone] ID: [id number] Echo Cardiac Adult Limited 01/07/2017 [...] Hoff at 01/13/17105 Author: BRI Hoff Service: Halfway House Counselor Author Type: Advanced Registered Nicky se Practitioner Filed: 01/13/1733 Date of Service: 01/13/17105 Status: Signed Internal Grinder Tender: BRI Hoff (Advanced Registered Nurse Practitioner) [facility] Service: Halfway House Counselor Progress Note Jose Rafael Walker 66 y.o. [...] ankylosing spondylitis, who presents to transfer from [facility] with a C7 fracture, left maxillary sinus fracture, thyroid mass and syncope. Main complaints at the [facility] facility were left sided face swelling, neck [...] Jan 10 2017 12:26AM Referring Provider Line: [phone] ID: [id number] Mri Cervical Spine Without Contrast [...] Jan 10 2017 12:50AM Referring Provider Line: [phone] ID: [id number] Mri C-spine Without Contrast 01/07/2017 [...] 07 2017 1:18AM Referring Prov ider Line: [phone] ID: [id number] Xr Chest 1 View 01/09/2017 [...] 07 2017 1:30AM Referring Pro vider Line: [phone] ID: [id number] Echo Cardiac Adult Limited 01/07/2017 [...] Controlled type 2 diabetes mellitus with hyperglycemia ([facility]) Syncope and collapse Thyroid mass CSF leak [...] Neurosurgery and He matology ENDO: DM2 with usp insulin use: Goal BG 80-180; continue treatment [...] Progress Notes by BRI Hoff at 01/12/17 5193 Author: BRI Hoff Service: Halfway House Counselor Author Type: Advanced Registered Nicky se Practitioner Filed: 01/12/17 9915 Date of Service: 01/12/172315 Status: Signed Internal Grinder Tender: BRI Hoff (Advanced Registered Nurse Practitioner) [facility] Service: Halfway House Counselor Progress Note Jose Rafael Walker 66 y.o. [...] ankylosing spondylitis, who presents to transfer from [facility] with a C7 fracture, left maxillary sinus fracture, thyroid mass and syncope. Main complaints at the [facility] facility were left sided face swelling, neck [...] thyroid mass, left maxillary sinus fra cture [facility] ED treatment: Dilaudid, morphine, cyclobenzaprine From [...] Jan 10 2017 12:26AM Referring Provider Line: [phone] ID: [id number] Mri Cervical Spine Without Contrast [...] Jan 10 2017 12:50AM Referring Provider Line: [phone] ID: [id number] Mri C-spine Without Contrast 01/07/2017 [...] 07 2017 1:18AM Referring Prov ider Line: [phone] ID: [id number] Xr Chest 1 View 01/09/2017 [...] 07 2017 1:30AM Referring Pro vider Line: [phone] ID: [id number] Echo Cardiac Adult Limited 01/07/2017 [...] Neurosurgery and He matology 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 Progress Notes by Jossie Saravia MD at 01/12/171452 Author: Jossie Saravia MD Service: Hospitalist Author Type: Physician Filed: 01/12/17 1504 Date of Service: 01/12/171452 Status: Signed Internal Grinder Tender: Jossie Saravia MD (Physician) [facility] Service: Hospitalist Progress Note Jose Rafael Walker 66 y.o. [id number] male [facility] Hospital Day: LOS: 5 days Patient [...] Procedure Component Value Units Date/Time POCT glucose [[id number]] (Abnormal) Collected: 01/12/17 1214 GLUCOSE,POC SCREEN 157 (H) mg/dL Updated: 01/12/17 1216 Basic metabolic panel [[id number]] (Abnormal) Collected: 01/12/17 0558 Specimen Information: Blood Updated: 01/12/17 0719 SODIUM 135 mmol/L POTASSIUM 4.7 mmol/L CHLORIDE 97 (L) mmol/L CO2 31 mmol/L ANION GAP AGAP 12 mmol/L GLUCOSE 230 (H) mg/dL BUN 19 mg/dL CREATININE 0.8 mg/dL BUN/CREAT 24 CALCIUM 9.7 mg/dL EGFR >60 mL/min/1.73m2 Magnesium [[id number]] Collected: 01/12/1758 Specimen Information: Blood Updated: 01/12/17718 MAGNESIUM 2.3 mg/dL Phosphorus [[id number]] Collected: 01/12/1758 Specimen Information: Blood Updated: 01/12/17718 PHOSPHORUS 2.9 mg/dL CBC w/auto diff (reflex to manual) [[id number]] (Abnormal) Collected: 01/12/17557 Specimen Information: Blood Updated: [...] RBC AND PLT MORPHOLOGY APPEAR NORMAL Protime-INR [[id number]] Collected: 01/12/1758 Specimen Information: Blood Updated: 01/12/17 0640 INR 1.1 POCT glucose [[id number]] (Abnormal) Collected: 01/12/17 0539 GLUCOSE,POC SCREEN 287 (H) mg/dL Updated: 01/12/17 0554 POCT glucose [[id number]] (Abnormal) Collected: 01/11/171999 GLUCOSE,POC SCREEN 161 (H) mg/dL Updated: 01/11/17 2006 POCT glucose [[id number]] (Abnormal) Collected: 01/11/17 1427 GLUCOSE,POC SCREEN 166 (H) mg/dL Updated: 01/11/17 1709 Sputum cult w/ gram stain [[id number]] Collected: 01/09/17 1844 Specimen Information: Nasopharyngeal from Sputum Updated: 01/11/17 1117 Specimen Description SPUTUM GRAM STAIN GREATER THAN 10 WBCS/LPF GRAM STAIN LESS THAN 10 SEC/LPF GRAM STAIN 1+ GRAM STAIN GRAM POSITIVE COCCI CULTURE 1+ NORMAL UPPER RESPIRATORY BILLY POCT glucose [[id number]] (Abnormal) Collected: 01/11/17 1006 GLUCOSE,POC SCREEN 206 (H) mg/dL Updated: 01/11/17 1010 POCT glucose [[id number]] (Abnormal) Collected: 01/11/17 0626 GLUCOSE,POC SCREEN 186 (H) mg/dL Updated: 01/11/17 0637 Basic metabolic panel [[id number]] (Abnormal) Collected: 01/11/17406 Specimen Information: Blood Updated: 01/11/17521 SODIUM 137 mmol/L POTASSIUM 4.8 mmol/L CHLORIDE 103 mmol/L CO2 27 mmol/L ANION GAP AGAP 12 mmol/L GLUCOSE 185 (H) mg/dL BUN 13 mg/dL CREATININE 0.8 mg/dL BUN/CREAT 16 CALCIUM 8.6 mg/dL EGFR >60 mL/min/1.73m2 Magnesium [[id number]] (Abnormal) Collected: 01/11/17406 Specimen Information: Blood Updated: 01/11/17521 MAGNESIUM 2.5 (H) mg/dL Phosphorus [[id number]] Collected: 01/11/17406 Specimen Information: Blood Updated: 01/11/17 0522 PHOSPHORUS 2.6 mg/dL CBC w/auto diff (reflex to manual) [[id number]] (Abnormal) Collected: 01/11/17406 Specimen Information: Blood Updated: [...] RBC AND PLT MORPHOLOGY APPEAR NORMAL Protime-INR [[id number]] Collected: 01/11/17406 Specimen Information: Blood Updated: 01/11/17 0445 INR 1.1 POCT glucose [[id number]] (Abnormal) Collected: 01/11/17 0209 GLUCOSE,POC SCREEN 241 (H) mg/dL Updated: 01/11/17 0236 POCT glucose [[id number]] (Abnormal) Collected: 01/10/17 2222 GLUCOSE,POC SCREEN 291 (H) mg/dL Updated: 01/10/17 2226 POCT glucose [[id number]] (Abnormal) Collected: 01/10/17 1844 GLUCOSE,POC SCREEN 209 (H) mg/dL Updated: 01/10/17 1857 POCT glucose [[id number]] (Abnormal) Collected: 01/10/17 1503 GLUCOSE,POC SCREEN 116 (H) mg/dL Updated: 01/10/17 1857 Magnesium [[id number]] Collected: 01/10/17 160 Specimen Information: Blood Updated: 01/10/17 1631 MAGNESIUM 2.0 mg/dL Phosphorus [[id number]] Collected: 01/10/17 160 Specimen Information: Blood Updated: 01/10/17 1631 PHOSPHORUS 3.9 mg/dL Potassium [[id number]] Collected: 01/10/17 160 Specimen Information: Blood Updated: 01/10/17 1631 POTASSIUM 3.8 mmol/L POCT glucose [[id number]] (Abnormal) Collected: 01/10/17 0935 GLUCOSE,POC SCREEN 127 (H) mg/dL Updated: 01/10/17 1312 POCT glucose [[id number]] (Abnormal) Collected: 01/10/17 1258 GLUCOSE,POC SCREEN 119 (H) mg/dL Updated: 01/10/17 1312 POCT glucose [[id number]] (Abnormal) Collected: 01/10/17 0833 GLUCOSE,POC SCREEN 121 (H) mg/dL Updated: 01/10/17 1312 POCT glucose [[id number]] (Abnormal) Collected: 01/10/17 0728 GLUCOSE,POC SCREEN 121 (H) mg/dL Updated: 01/10/17 0731 CBC w/auto diff (reflex to manual) [[id number]] (Abnormal) Collected: 01/10/17 0433 Specimen Information: Blood [...] AND PLT MORPHOLOGY APPEAR NORMAL Glycohemoglobin A1c [[id number]] (Abnormal) Collected: 01/10/17432 Specimen Information: Blood Updated: 01/10/17644 HEMOGLOBIN A1C 7.3 (H) % ESTIMATED AVG GLUCOSE 163 mg/dL Type and screen [[id number]] Collected: 01/09/17442 Specimen Information: Blood Updated: 01/10/17643 ABO/RH(D) A POSITIVE ANTIBODY SCREEN NEGATIVE ARM BAND NUMBER [id number] UNIT NUMBER [id number] BLOOD COMPONENT TYPE LEUKODEPLETED PC UNIT DIVISION 00 STATUS OF UNIT ISSUED,FINAL TRANSFUSION STATUS OK TO TRANSFUSE CROSSMATCH RESULT COMPATIBLE UNIT NUMBER [id number] BLOOD COMPONENT TYPE LEUKODEPLETED PC UNIT DIVISION 00 STATUS OF UNIT ISSUED,FINAL TRANSFUSION STATUS OK TO TRANSFUSE CROSSMATCH RESULT -- Result: COMPATIBLE Testing performed at [facility] [facility];[address] [place] [address] UNIT NUMBER [id number] BLOOD COMPONENT TYPE LEUKODEPLETED PC UNIT DIVISION 00 STATUS OF UNIT ALLOCATED TRANSFUSION STATUS OK TO TRANSFUSE CROSSMATCH RESULT COMPATIBLE UNIT NUMBER [id number] BLOOD COMPONENT TYPE LEUKODEPLETED PC UNIT DIVISION 00 STATUS OF UNIT ALLOCATED TRANSFUSION STATUS OK TO TRANSFUSE CROSSMATCH RESULT COMPATIBLE Prepare Plasma (Blood Bank) [[id number]] Collected: 01/09/17 1040 Additional comment: ORDER RECEIVED IN BLOOD BANK. Updated: 01/10/17 0644 UNIT NUMBER [id number] BLOOD COMPONENT TYPE PLASMA,THAWED 5 DAY UNIT DIVISION 00 STATUS OF UNIT ISSUED,FINAL TRANSFUSION STATUS OK TO TRANSFUSE UNIT NUMBER [id number] BLOOD COMPONENT TYPE PLASMA,THAWED 5 DAY UNIT DIVISION 00 STATUS OF UNIT ISSUED,FINAL TRANSFUSION STATUS -- Result: OK TO TRANSFUSE Testing performed at [facility];[address] [place] [address]608 Basic metabolic panel [[id number]] (Abnormal) Collected: 01/10/17432 Specimen Information: Blood Updated: 01/10/17638 SODIUM 142 mmol/L POTASSIUM 3.7 mmol/L CHLORIDE 108 mmol/L CO2 25 mmol/L ANION GAP AGAP 13 mmol/L GLUCOSE 166 (H) mg/dL BUN 14 mg/dL CREATININE 0.8 mg/dL BUN/CREAT 18 CALCIUM 7.8 (L) mg/dL EGFR >60 mL/min/1.73m2 Magnesium [[id number]] Collected: 01/10/17432 Specimen Information: Blood Updated: 01/10/17638 MAGNESIUM 2.4 mg/dL Phosphorus [[id number]] (Abnormal) Collected: 01/10/17432 Specimen Information: Blood Updated: 01/10/17638 PHOSPHORUS 1.8 (L) mg/dL POCT glucose [[id number]] (Abnormal) Collected: 01/10/17452 GLUCOSE,POC SCREEN 157 (H) mg/dL Updated: 01/10/17632 POCT glucose [[id number]] (Abnormal) Collected: 01/10/17622 GLUCOSE,POC SCREEN 163 (H) mg/dL Updated: 01/10/17632 POCT glucose [[id number]] (Abnormal) Collected: 01/10/17 0349 GLUCOSE,POC SCREEN 164 (H) mg/dL Updated: 01/10/17632 POCT glucose [[id number]] (Abnormal) Collected: 01/10/17 0246 GLUCOSE,POC SCREEN 177 (H) mg/dL Updated: 01/10/17632 POCT glucose [[id number]] (Abnormal) Collected: 01/10/17 0143 GLUCOSE,POC SCREEN 211 (H) mg/dL Updated: 01/10/17632 POCT glucose [[id number]] (Abnormal) Collected: 01/10/17 0039 GLUCOSE,POC SCREEN 210 (H) mg/dL Updated: 01/10/17632 Protime-INR [[id number]] Collected: 01/10/17432 Specimen Information: Blood Updated: 01/10/17 0509 INR 1.1 POCT glucose [[id number]] (Abnormal) Collected: 01/09/17 2335 GLUCOSE,POC SCREEN 274 (H) mg/dL Updated: 01/10/17 0016 POCT glucose [[id number]] (Abnormal) Collected: 01/09/172222 GLUCOSE,POC SCREEN 290 (H) mg/dL Updated: 01/10/17 001 Magnesium [[id number]] Collected: 01/09/171824 Specimen Information: Blood Updated: 01/09/172024 MAGNESIUM 2.2 mg/dL Phosphorus [[id number]] Collected: 01/09/171824 Specimen Information: Blood Updated: 01/09/172024 PHOSPHORUS 3.6 mg/dL MRSA by PCR [[id number]] Collected: 01/09/171854 Specimen Information: Nasopharyngeal from Nasopharyngeal Culture Updated: 01/09/17 SOURCE NARES(NOSE) MRSA PCR NEGATIVE Comprehensive metabolic panel [[id number]] (Abnormal) Collected: 01/09/171824 Specimen Information: Blood Updated: [...] 42 U/L EGFR >60 mL/min/1.73m2 Calcium, ionized [[id number]] (Abnormal) Collected: 01/09/171824 Specimen Information: Blood Updated: 01/09/171854 CA++ 0.98 (L) mmol/L pH 7.367 CBC W/Auto Diff (Reflex to Manual) [[id number]] (Abnormal) Collected: 01/09/171824 Specimen Information: Blood Updated: [...] SCANNED, AGREES WITH AUTOMATED RESULTS. POCT glucose [[id number]] (Abnormal) Collected: 01/09/17 1749 GLUCOSE,POC SCREEN 241 (H) mg/dL Updated: 01/09/17 1753 POC arterial CG8+ [[id number]] (Abnormal) Collected: 01/09/17 1459 pH, Art 7.335 [...] The data set was also examined with [employer] 3D software for evaluation of the cerebral [...] Rodriguez MD on 2016 6:49 PM X-ray Chest 2 View Frontal & Lateral 01/06/2017 This is a non-reportable procedure without a radiologist report and is used for image storage only X-ray Shoulder Right Complete 2+v 01/07/2017 JOSE RAFAEL Vega [place] 1950 XR SHOULDER RIGHT 01/07/2017 1:46 PM INDICATION: Pain CO MPARISON: None. TECHNIQUE: Right shoulder series, 3 views Limitations: Technique. 01/07/2017 FINDINGS/ IMPRESSION: 1. No acute fracture or dislocation. 2. 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 3. Osteopenia. Electronicall y signed by Cierra López on 01/07/2017 1:49 PM X-ray Knee Limited Left 01/07/2017 JOSE RAFAEL Vega [place] 1950 XR KNEE LIMITED LEFT 01/07/2017 4:09 AM INDICATION: Trau ma, fall. COMPARISON: None TECHNIQUE: Left knee series, 3 views 01/07/2017 No acute fracture or dislocation. No bone, joint or soft tissue abnormality. 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 [...] 01/09/2017. 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 [...] 07 2017 1:30AM Referring Pro vider Line: [phone] ID: 112 Echo Cardiac Adult Limited 01/07/2017 Patient Name: JOSE RAFAEL WALKER Date of : 1950 [facility] Physician: Ihsankelly Dayo INDICATIONS abn ekg, pt [...] LA/Ao: 0.91 D-E Excursion: 1.21 cm E-F [place]: 0.0 3 m/s EPSS: 0.99 cm HR: [...] Note by Angelito Mirza PTA at 01/12/17 4336 Author: Angelito Mirza PTA Service: (none) Author Type: Order Entry Representative Filed: 01/12/17 5302 Date of Service: 01/12/171436 Status: Signed Internal Grinder Tender: Angelito Mirza PTA (Order Entry Representative) 01/12/17 1438 PT Last Visit PT Received On 01/12/17 [...] Date of Service: 01/12/17 1431 Status: Signed Internal Grinder Tender: Melissa Lindsay RN (Registered Nurse) called and informed that dressing is saturated. Telephone order to place patient NPO. onver jacki Transaction, Provider Unknown - 01/12/2017 11:27 AM PDT Therapy Progress Note by Angelito Mirza PTA at 01/12/17 1127 Author: Angelito Mirza PTA Service: (none) Author Type: Order Entry Representative Filed: 01/12/17 1129 Date of Service: 01/12/17 1127 Status: Signed Internal Grinder Tender: Angelito Mirza PTA (Order Entry Representative) 01/12/17 1127 PT Last Visit PT Received [...] Date of Service: 01/12/17 1018 Status: Signed Internal Grinder Tender: Menedz Morrison MD (Physician) [facility] Service: Neurosurgery Progress Note Hospital Day: LOS: [...] 37.52 kg/m2 | SpO2 97% 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, 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 5/5 x4 Sensation intact No radicular [...] Component Value Units Date/Time Basic metabolic panel [[id number]] (Abnormal) Collected: 01/12/17557 Specimen Information: Blood Updated: 01/12/17718 SODIUM 135 mmol/L POTASSIUM 4.7 mmol/L CHLORIDE 97 (L) mmol/L CO2 31 mmol/L ANION GAP AGAP 12 mmol/L GLUCOSE 230 (H) mg/dL BUN 19 mg/dL CREATININE 0.8 mg/dL BUN/CREAT 24 CALCIUM 9.7 mg/dL EGFR >60 mL/min/1.73m2 Magnesium [[id number]] Collected: 01/12/17557 Specimen Information: Blood Updated: 01/12/17718 MAGNESIUM 2.3 mg/dL Phosphorus [[id number]] Collected: 01/12/17557 Specimen Information: Blood Updated: 05/23/17 0719 PHOSPHORUS 2.9 mg/dL CBC w/auto diff (reflex to manual) [[id number]] (Abnormal) Collected: 01/12/17 0558 Specimen Information: Blood [...] RBC AND PLT MORPHOLOGY APPEAR NORMAL Protime-INR [[id number]] Collected: 01/12/17 0558 Specimen Information: Blood Updated: 01/12/17 0640 INR 1.1 POCT glucose [[id number]] (Abnormal) Collected: 01/12/17 0539 GLUCOSE,POC SCREEN 287 (H) mg/dL Updated: 01/12/17 0554 POCT glucose [[id number]] (Abnormal) Collected: 01/11/171999 GLUCOSE,POC SCREEN 161 (H) mg/dL Updated: 01/11/172005 POCT glucose [[id number]] (Abnormal) Collected: 01/11/17 1427 GLUCOSE,POC SCREEN 166 (H) mg/dL Updated: 01/11/17 1709 Sputum cult w/ gram stain [[id number]] Collected: 01/09/17 1844 Specimen Information: Nasopharyngeal from Sputum Updated: 01/11/17 1117 Specimen Description SPUTUM GRAM STAIN GREATER THAN 10 WBCS/LPF GRAM STAIN LESS THAN 10 SEC/LPF GRAM STAIN 1+ GRAM STAIN GRAM POSITIVE COCCI CULTURE 1+ NORMAL UPPER RESPIRATORY BILLY POCT glucose [[id number]] (Abnormal) Collected: 01/11/17 1006 GLUCOSE,POC SCREEN 206 (H) mg/dL Updated: 01/11/17 1010 POCT glucose [[id number]] (Abnormal) Collected: 01/11/17 0626 GLUCOSE,POC SCREEN 186 (H) mg/dL Updated: 01/11/17 0637 Basic metabolic panel [[id number]] (Abnormal) Collected: 01/11/17406 Specimen Information: Blood Updated: 01/11/17521 SODIUM 137 mmol/L POTASSIUM 4.8 mmol/L CHLORIDE 103 mmol/L CO2 27 mmol/L ANION GAP AGAP 12 mmol/L GLUCOSE 185 (H) mg/dL BUN 13 mg/dL CREATININE 0.8 mg/dL BUN/CREAT 16 CALCIUM 8.6 mg/dL EGFR >60 mL/min/1.73m2 Magnesium [[id number]] (Abnormal) Collected: 01/11/17406 Specimen Information: Blood Updated: 01/11/17521 MAGNESIUM 2.5 (H) mg/dL Phosphorus [[id number]] Collected: 01/11/17406 Specimen Information: Blood Updated: 01/11/17521 PHOSPHORUS 2.6 mg/dL CBC w/auto diff (reflex to manual) [[id number]] (Abnormal) Collected: 01/11/17406 Specimen Information: Blood Updated: [...] RBC AND PLT MORPHOLOGY APPEAR NORMAL Protime-INR [[id number]] Collected: 01/11/17406 Specimen Information: Blood Updated: 01/11/17444 INR 1.1 POCT glucose [[id number]] (Abnormal) Collected: 01/11/17 0209 GLUCOSE,POC SCREEN 241 (H) mg/dL Updated: 01/11/17 0236 POCT glucose [[id number]] (Abnormal) Collected: 01/10/17 2222 GLUCOSE,POC SCREEN 291 (H) mg/dL Updated: 01/10/17 222 POCT glucose [[id number]] (Abnormal) Collected: 01/10/17 1844 GLUCOSE,POC SCREEN 209 (H) mg/dL Updated: 01/10/17 1857 POCT glucose [[id number]] (Abnormal) Collected: 01/10/17 1503 GLUCOSE,POC SCREEN 116 (H) mg/dL Updated: 01/10/17 1857 Magnesium [[id number]] Collected: 01/10/17 1607 Specimen Information: Blood Updated: 01/10/17 1631 MAGNESIUM 2.0 mg/dL Phosphorus [[id number]] Collected: 01/10/17 160 Specimen Information: Blood Updated: 01/10/17 1631 PHOSPHORUS 3.9 mg/dL Potassium [[id number]] Collected: 01/10/17 160 Specimen Information: Blood Updated: 01/10/17 1631 POTASSIUM 3.8 mmol/L POCT glucose [[id number]] (Abnormal) Collected: 01/10/17 0935 GLUCOSE,POC SCREEN 127 (H) mg/dL Updated: 01/10/17 1312 POCT glucose [[id number]] (Abnormal) Collected: 01/10/17 1258 GLUCOSE,POC SCREEN 119 (H) mg/dL Updated: 01/10/17 1312 POCT glucose [[id number]] (Abnormal) Collected: 01/10/17 0833 GLUCOSE,POC SCREEN 121 (H) mg/dL Updated: 01/10/17 1312 POCT glucose [[id number]] (Abnormal) Collected: 01/10/17 0728 GLUCOSE,POC SCREEN 121 (H) mg/dL Updated: 01/10/17 0731 CBC w/auto diff (reflex to manual) [[id number]] (Abnormal) Collected: 01/10/17 0433 Specimen Information: Blood [...] AND PLT MORPHOLOGY APPEAR NORMAL Glycohemoglobin A1c [[id number]] (Abnormal) Collected: 01/10/17432 Specimen Information: Blood Updated: 01/10/17644 HEMOGLOBIN A1C 7.3 (H) % ESTIMATED AVG GLUCOSE 163 mg/dL Type and screen [[id number]] Collected: 01/09/17442 Specimen Information: Blood Updated: 01/10/17643 ABO/RH(D) A POSITIVE ANTIBODY SCREEN NEGATIVE ARM BAND NUMBER [id number] UNIT NUMBER [id number] BLOOD COMPONENT TYPE LEUKODEPLETED PC UNIT DIVISION 00 STATUS OF UNIT ISSUED,FINAL TRANSFUSION STATUS OK TO TRANSFUSE CROSSMATCH RESULT COMPATIBLE UNIT NUMBER [id number] BLOOD COMPONENT TYPE LEUKODEPLETED PC UNIT DIVISION 00 STATUS OF UNIT ISSUED,FINAL TRANSFUSION STATUS OK TO TRANSFUSE CROSSMATCH RESULT -- Result: COMPATIBLE Testing performed at [facility] [facility];[address] [place] [address];[place] [address] UNIT NUMBER [id number] BLOOD COMPONENT TYPE LEUKODEPLETED PC UNIT DIVISION 00 STATUS OF UNIT ALLOCATED TRANSFUSION STATUS OK TO TRANSFUSE CROSSMATCH RESULT COMPATIBLE UNIT NUMBER [id number] BLOOD COMPONENT TYPE LEUKODEPLETED PC UNIT DIVISION 00 STATUS OF UNIT ALLOCATED TRANSFUSION STATUS OK TO TRANSFUSE CROSSMATCH RESULT COMPATIBLE Prepare Plasma (Blood Bank) [[id number]] Collected: 01/09/17 1040 Additional comment: ORDER RECEIVED IN BLOOD BANK. Updated: 01/10/17643 UNIT NUMBER [id number] BLOOD COMPONENT TYPE PLASMA,THAWED 5 DAY UNIT DIVISION 00 STATUS OF UNIT ISSUED,FINAL TRANSFUSION STATUS OK TO TRANSFUSE UNIT NUMBER [id number] BLOOD COMPONENT TYPE PLASMA,THAWED 5 DAY UNIT DIVISION 00 STATUS OF UNIT ISSUED,FINAL TRANSFUSION STATUS -- Result: OK TO TRANSFUSE Testing performed at [facility] [place] [facility];[address] [place] [address];[place] [address] Basic metabolic panel [[id number]] (Abnormal) Collected: 01/10/17432 Specimen Information: Blood Updated: 01/10/17638 SODIUM 142 mmol/L POTASSIUM 3.7 mmol/L CHLORIDE 108 mmol/L CO2 25 mmol/L ANION GAP AGAP 13 mmol/L GLUCOSE 166 (H) mg/dL BUN 14 mg/dL CREATININE 0.8 mg/dL BUN/CREAT 18 CALCIUM 7.8 (L) mg/dL EGFR >60 mL/min/1.73m2 Magnesium [[id number]] Collected: 01/10/17432 Specimen Information: Blood Updated: 01/10/17 0639 MAGNESIUM 2.4 mg/dL Phosphorus [[id number]] (Abnormal) Collected: 01/10/17432 Specimen Information: Blood Updated: 01/10/17 0639 PHOSPHORUS 1.8 (L) mg/dL POCT glucose [[id number]] (Abnormal) Collected: 01/10/17 045 GLUCOSE,POC SCREEN 157 (H) mg/dL Updated: 01/10/17632 POCT glucose [[id number]] (Abnormal) Collected: 01/10/17622 GLUCOSE,POC SCREEN 163 (H) mg/dL Updated: 01/10/17632 POCT glucose [[id number]] (Abnormal) Collected: 01/10/17 0349 GLUCOSE,POC SCREEN 164 (H) mg/dL Updated: 01/10/17632 POCT glucose [[id number]] (Abnormal) Collected: 01/10/17 0246 GLUCOSE,POC SCREEN 177 (H) mg/dL Updated: 01/10/17632 POCT glucose [[id number]] (Abnormal) Collected: 01/10/17 0143 GLUCOSE,POC SCREEN 211 (H) mg/dL Updated: 01/10/17632 POCT glucose [[id number]] (Abnormal) Collected: 01/10/17 0039 GLUCOSE,POC SCREEN 210 (H) mg/dL Updated: 01/10/17632 Protime-INR [[id number]] Collected: 01/10/17432 Specimen Information: Blood Updated: 01/10/17 0509 INR 1.1 POCT glucose [[id number]] (Abnormal) Collected: 01/09/17 2335 GLUCOSE,POC SCREEN 274 (H) mg/dL Updated: 01/10/17 0016 POCT glucose [[id number]] (Abnormal) Collected: 01/09/17 2223 GLUCOSE,POC SCREEN 290 (H) mg/dL Updated: 01/10/17 0016 Magnesium [[id number]] Collected: 01/09/171824 Specimen Information: Blood Updated: 01/09/175 MAGNESIUM 2.2 mg/dL Phosphorus [[id number]] Collected: 01/09/171824 Specimen Information: Blood Updated: 01/09/172024 PHOSPHORUS 3.6 mg/dL MRSA by PCR [[id number]] Collected: 01/09/171854 Specimen Information: Nasopharyngeal from Nasopharyngeal Culture Updated: 01/09/17 SOURCE NARES(NOSE) MRSA PCR NEGATIVE Comprehensive metabolic panel [[id number]] (Abnormal) Collected: 01/09/171824 Specimen Information: Blood Updated: [...] 42 U/L EGFR >60 mL/min/1.73m2 Calcium, ionized [[id number]] (Abnormal) Collected: 01/09/171824 Specimen Information: Blood Updated: 01/09/171854 CA++ 0.98 (L) mmol/L pH 7.367 CBC W/Auto Diff (Reflex to Manual) [[id number]] (Abnormal) Collected: 01/09/171824 Specimen Information: Blood Updated: [...] SCANNED, AGREES WITH AUTOMATED RESULTS. POCT glucose [[id number]] (Abnormal) Collected: 01/09/17 1749 GLUCOSE,POC SCREEN 241 (H) mg/dL Updated: 01/09/17 1753 POC arterial CG8+ [[id number]] (Abnormal) Collected: 01/09/17 1459 pH, Art 7.335 [...] HGB 12.2 (L) g/dL POC arterial CG8+ [[id number]] (Abnormal) Collected: 01/09/17 1212 pH, Art 7.348 [...] HGB 10.5 (L) g/dL POC arterial CG8+ [[id number]] (Abnormal) Collected: 01/09/17 1107 pH, Art 7.343 [...] Jan 10 2017 12:26AM Referring Provider Line: [phone] ID: [id number] Mri Cervical Spine Without Contrast [...] Jan 10 2017 12:50AM Referring Provider Line: [phone] ID: [id number] Mri C-spine Without Contrast 01/07/2017 [...] 07 2017 1:18AM Referring Prov ider Line: [phone] ID: [id number] Xr Chest 1 View 01/09/2017 [...] 07 2017 1:30AM Referring Pro vider Line: [phone] ID: [id number] Echo Cardiac Adult Limited 01/07/2017 [...] 01/12/17752 Date of Service: 01/12/17752 Status: Signed Internal Grinder Tender: Melissa Lindsay RN (Registered Nurse) Pt to CT. Tele called. onver jacki Transaction, Provider Unknown - 01/12/2017 7:00 AM PDT Nurse Progress Note by Luz Chen RN at 01/12/17 07 Author: Luz Chen RN Service: (none) Author Type: Registered Nurse Filed: 01/12/17702 Date of Service: 01/12/17699 Status: Signed Internal Grinder Tender: Luz Chen RN (Registered Nurse) Patient has [...] 1215 Date of Service: 01/11/171858 Status: Signed Internal Grinder Tender: Mendez Morrison MD (Physician) [facility] Service: Neurosurgery Progress Note Hospital Day: LOS: [...] 37.52 kg/m2 | SpO2 99% Extubated, 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 5/5 x4 Sensation intact No radicular [...] Procedure Component Value Units Date/Time POCT glucose [[id number]] (Abnormal) Collected: 01/11/17 1427 GLUCOSE,POC SCREEN 166 (H) mg/dL Updated: 01/11/17 1709 Sputum cult w/ gram stain [[id number]] Collected: 01/09/17 1844 Specimen Information: Nasopharyngeal from Sputum Updated: 01/11/17 1117 Specimen Description SPUTUM GRAM STAIN GREATER THAN 10 WBCS/LPF GRAM STAIN LESS THAN 10 SEC/LPF GRAM STAIN 1+ GRAM STAIN GRAM POSITIVE COCCI CULTURE 1+ NORMAL UPPER RESPIRATORY BILLY POCT glucose [[id number]] (Abnormal) Collected: 01/11/17 1006 GLUCOSE,POC SCREEN 206 (H) mg/dL Updated: 01/11/17 1010 POCT glucose [[id number]] (Abnormal) Collected: 01/11/17 0626 GLUCOSE,POC SCREEN 186 (H) mg/dL Updated: 01/11/17 0637 Basic metabolic panel [[id number]] (Abnormal) Collected: 01/11/17406 Specimen Information: Blood Updated: 01/11/17521 SODIUM 137 mmol/L POTASSIUM 4.8 mmol/L CHLORIDE 103 mmol/L CO2 27 mmol/L ANION GAP AGAP 12 mmol/L GLUCOSE 185 (H) mg/dL BUN 13 mg/dL CREATININE 0.8 mg/dL BUN/CREAT 16 CALCIUM 8.6 mg/dL EGFR >60 mL/min/1.73m2 Magnesium [[id number]] (Abnormal) Collected: 01/11/17406 Specimen Information: Blood Updated: 01/11/17521 MAGNESIUM 2.5 (H) mg/dL Phosphorus [[id number]] Collected: 01/11/17406 Specimen Information: Blood Updated: 01/11/17521 PHOSPHORUS 2.6 mg/dL CBC w/auto diff (reflex to manual) [[id number]] (Abnormal) Collected: 01/11/17406 Specimen Information: Blood Updated: [...] RBC AND PLT MORPHOLOGY APPEAR NORMAL Protime-INR [[id number]] Collected: 01/11/17 0407 Specimen Information: Blood Updated: 01/11/17 0445 INR 1.1 POCT glucose [[id number]] (Abnormal) Collected: 01/11/17 0209 GLUCOSE,POC SCREEN 241 (H) mg/dL Updated: 01/11/17 0236 POCT glucose [[id number]] (Abnormal) Collected: 01/10/17 2222 GLUCOSE,POC SCREEN 291 (H) mg/dL Updated: 01/10/17 2226 POCT glucose [[id number]] (Abnormal) Collected: 01/10/17 1844 GLUCOSE,POC SCREEN 209 (H) mg/dL Updated: 01/10/17 1857 POCT glucose [[id number]] (Abnormal) Collected: 01/10/17 1503 GLUCOSE,POC SCREEN 116 (H) mg/dL Updated: 01/10/17 1857 Magnesium [[id number]] Collected: 01/10/17 1607 Specimen Information: Blood Updated: 01/10/17 1631 MAGNESIUM 2.0 mg/dL Phosphorus [[id number]] Collected: 01/10/17 1607 Specimen Information: Blood Updated: 01/10/17 1631 PHOSPHORUS 3.9 mg/dL Potassium [[id number]] Collected: 01/10/17 1607 Specimen Information: Blood Updated: 01/10/17 1631 POTASSIUM 3.8 mmol/L POCT glucose [[id number]] (Abnormal) Collected: 01/10/17 0935 GLUCOSE,POC SCREEN 127 (H) mg/dL Updated: 01/10/17 1312 POCT glucose [[id number]] (Abnormal) Collected: 01/10/17 1258 GLUCOSE,POC SCREEN 119 (H) mg/dL Updated: 01/10/17 1312 POCT glucose [[id number]] (Abnormal) Collected: 01/10/17 0833 GLUCOSE,POC SCREEN 121 (H) mg/dL Updated: 01/10/17 1312 POCT glucose [[id number]] (Abnormal) Collected: 01/10/17 0728 GLUCOSE,POC SCREEN 121 (H) mg/dL Updated: 01/10/17 0731 CBC w/auto diff (reflex to manual) [[id number]] (Abnormal) Collected: 01/10/17432 Specimen Information: Blood Updated: [...] AND PLT MORPHOLOGY APPEAR NORMAL Glycohemoglobin A1c [[id number]] (Abnormal) Collected: 01/10/17432 Specimen Information: Blood Updated: 01/10/17 0645 HEMOGLOBIN A1C 7.3 (H) % ESTIMATED AVG GLUCOSE 163 mg/dL Type and screen [[id number]] Collected: 01/09/17442 Specimen Information: Blood Updated: 01/10/17 0644 ABO/RH(D) A POSITIVE ANTIBODY SCREEN NEGATIVE ARM BAND NUMBER [id number] UNIT NUMBER [id number] BLOOD COMPONENT TYPE LEUKODEPLETED PC UNIT DIVISION 00 STATUS OF UNIT ISSUED,FINAL TRANSFUSION STATUS OK TO TRANSFUSE CROSSMATCH RESULT COMPATIBLE UNIT NUMBER [id number] BLOOD COMPONENT TYPE LEUKODEPLETED PC UNIT DIVISION 00 STATUS OF UNIT ISSUED,FINAL TRANSFUSION STATUS OK TO TRANSFUSE CROSSMATCH RESULT -- Result: COMPATIBLE Testing performed at [facility] [place];[address] [place] [address] UNIT NUMBER [id number] BLOOD COMPONENT TYPE LEUKODEPLETED PC UNIT DIVISION 00 STATUS OF UNIT ALLOCATED TRANSFUSION STATUS OK TO TRANSFUSE CROSSMATCH RESULT COMPATIBLE UNIT NUMBER [id number] BLOOD COMPONENT TYPE LEUKODEPLETED PC UNIT DIVISION 00 STATUS OF UNIT ALLOCATED TRANSFUSION STATUS OK TO TRANSFUSE CROSSMATCH RESULT COMPATIBLE Prepare Plasma (Blood Bank) [[id number]] Collected: 01/09/17 1040 Additional comment: ORDER RECEIVED IN BLOOD BANK. Updated: 01/10/17 0644 UNIT NUMBER [id number] BLOOD COMPONENT TYPE PLASMA,THAWED 5 DAY UNIT DIVISION 00 STATUS OF UNIT ISSUED,FINAL TRANSFUSION STATUS OK TO TRANSFUSE UNIT NUMBER [id number] BLOOD COMPONENT TYPE PLASMA,THAWED 5 DAY UNIT DIVISION 00 STATUS OF UNIT ISSUED,FINAL TRANSFUSION STATUS -- Result: OK TO TRANSFUSE Testing performed at [facility] [place];[address] [place] [address];[place] [address] Basic metabolic panel [[id number]] (Abnormal) Collected: 01/10/17432 Specimen Information: Blood Updated: 01/10/1739 SODIUM 142 mmol/L POTASSIUM 3.7 mmol/L CHLORIDE 108 mmol/L CO2 25 mmol/L ANION GAP AGAP 13 mmol/L GLUCOSE 166 (H) mg/dL BUN 14 mg/dL CREATININE 0.8 mg/dL BUN/CREAT 18 CALCIUM 7.8 (L) mg/dL EGFR >60 mL/min/1.73m2 Magnesium [[id number]] Collected: 01/10/17432 Specimen Information: Blood Updated: 01/10/17 0639 MAGNESIUM 2.4 mg/dL Phosphorus [[id number]] (Abnormal) Collected: 01/10/17432 Specimen Information: Blood Updated: 01/10/17 0639 PHOSPHORUS 1.8 (L) mg/dL POCT glucose [[id number]] (Abnormal) Collected: 01/10/17 045 GLUCOSE,POC SCREEN 157 (H) mg/dL Updated: 01/10/17632 POCT glucose [[id number]] (Abnormal) Collected: 01/10/17 06 GLUCOSE,POC SCREEN 163 (H) mg/dL Updated: 01/10/17632 POCT glucose [[id number]] (Abnormal) Collected: 01/10/17 0349 GLUCOSE,POC SCREEN 164 (H) mg/dL Updated: 01/10/17632 POCT glucose [[id number]] (Abnormal) Collected: 01/10/17 0246 GLUCOSE,POC SCREEN 177 (H) mg/dL Updated: 01/10/17632 POCT glucose [[id number]] (Abnormal) Collected: 01/10/17 0143 GLUCOSE,POC SCREEN 211 (H) mg/dL Updated: 01/10/17632 POCT glucose [[id number]] (Abnormal) Collected: 01/10/17 0039 GLUCOSE,POC SCREEN 210 (H) mg/dL Updated: 01/10/17632 Protime-INR [[id number]] Collected: 01/10/17 0433 Specimen Information: Blood Updated: 01/10/17 0509 INR 1.1 POCT glucose [[id number]] (Abnormal) Collected: 01/09/17 2335 GLUCOSE,POC SCREEN 274 (H) mg/dL Updated: 01/10/17 001 POCT glucose [[id number]] (Abnormal) Collected: 01/09/17 2223 GLUCOSE,POC SCREEN 290 (H) mg/dL Updated: 01/10/176 Magnesium [[id number]] Collected: 01/09/171824 Specimen Information: Blood Updated: 01/09/172024 MAGNESIUM 2.2 mg/dL Phosphorus [[id number]] Collected: 01/09/171824 Specimen Information: Blood Updated: 01/09/172024 PHOSPHORUS 3.6 mg/dL MRSA by PCR [[id number]] Collected: 01/09/171854 Specimen Information: Nasopharyngeal from Nasopharyngeal Culture Updated: 01/09/17 13 SOURCE NARES(NOSE) MRSA PCR NEGATIVE Comprehensive metabolic panel [[id number]] (Abnormal) Collected: 01/09/171824 Specimen Information: Blood Updated: [...] 42 U/L EGFR >60 mL/min/1.73m2 Calcium, ionized [[id number]] (Abnormal) Collected: 01/09/171824 Specimen Information: Blood Updated: 01/09/171854 CA++ 0.98 (L) mmol/L pH 7.367 CBC W/Auto Diff (Reflex to Manual) [[id number]] (Abnormal) Collected: 01/09/171824 Specimen Information: Blood Updated: [...] SCANNED, AGREES WITH AUTOMATED RESULTS. POCT glucose [[id number]] (Abnormal) Collected: 01/09/17 1749 GLUCOSE,POC SCREEN 241 (H) mg/dL Updated: 01/09/17 1753 POC arterial CG8+ [[id number]] (Abnormal) Collected: 01/09/17 1459 pH, Art 7.335 [...] HGB 12.2 (L) g/dL POC arterial CG8+ [[id number]] (Abnormal) Collected: 01/09/17 1212 pH, Art 7.348 [...] HGB 10.5 (L) g/dL POC arterial CG8+ [[id number]] (Abnormal) Collected: 01/09/17 1107 pH, Art 7.343 [...] POC HGB 11.9 (L) g/dL POCT glucose [[id number]] (Abnormal) Collected: 01/09/17 0619 GLUCOSE,POC SCREEN 221 (H) mg/dL Updated: 01/09/17 0627 POCT glucose [[id number]] (Abnormal) Collected: 01/08/17 2102 GLUCOSE,POC SCREEN 268 (H) mg/dL Updated: 01/09/17 0606 Protime-INR [[id number]] Collected: 01/09/17 0443 Specimen Information: Blood Updated: [...] Jan 10 2017 12:26AM Referring Provider Line: [phone] ID: [id number] Mri Cervical Spine Without Contrast [...] Jan 10 2017 12:50AM Referring Provider Line: [phone] ID: [id number] Mri C-spine Without Contrast 01/07/2017 [...] 07 2017 1:18AM Referring Prov ider Line: [phone] ID: [id number] Xr Chest 1 View 01/09/2017 [...] 07 2017 1:30AM Referring Pro vider Line: [phone] ID: [id number] Echo Cardiac Adult Limited 01/07/2017 [...] 01/11/171652 Date of Service: 01/11/171652 Status: Signed Internal Grinder Tender: Jossie Saravia MD (Physician) Patient accepted under hospitalist service from ICU onversion Transactio n, Provider Unknown - 01/11/2017 3:52 PM PDT Therapy Progress Note by HOLLY Perales/Ayesha at 01/11/17 5495 Author: JOZEF Perales Service: (none) Author Type: Occupational Therapist Filed: 01/11/173 Date of Service: 01/11/171551 Status: Signed Internal Grinder Tender: Radha Phillip OTR/Ayesha (Occupational Therapist) 01/11/17 9687 Precautions Spinal Precautions Cervical Other Precautions HOB elevated to 60-70 Home Environment Bathroom Equipment Tub transfer bench Additional Comments See PT note for Home Environment Prior Function Comments See PT note for PLOF ADL Additional Comments Pt was seated in the bedside chair when OT arrived for evaluaiton. Dis cussed level of supports that pt was having at home [employer] and the supports he has in place upo n discharge. Reviewed with pt the AE available and provided the AE handout. Pt stated he h as had numerous pieces of equipment over th eyears including many reachers and sock aids. D oes not currently have a chief vendor quality but was interested in obtaining equipment again [...] Bathing With mod assist (with assist for [place] collar) Pt Will Perform UE Dressing At [...] family) OT Ready for Discharge Yes 01/11/17 5637 OT Last Visit OT Received On 01/11/17 Reason for Treatment Spinal surgery Requires OT Follow Up Yes OT Eval/Reassessment Date 01/11/17 Assistance Required 1 person Matrix Bath Attendant Needed No Family/Caregiver Present No Precautions Spinal [...] ankylosing spondylitis, who presents to transfer from [facility] with a C7 fracture, left maxillary [...] Self-care deficits impacting functional independence Low - 80681 Moderate - 42572 High - 85572 History Expanded review of medical records; additional review of physical, cognitive, or p sychosocial skills Examination Identification of 3-5 performance deficits Decision Making May present with comorbidities; minimal to moderate modification of tasks or assistance is needed to complete eval Clinical Decision Making Complexity: Moderate 12717 onver jacki Khanaction, Provider Unknown - 01/11/2017 1:48 PM PDT Case Management by JAMIE Tracey at 01/11/17 1348 Author: JAMIE Tracey Service: (none) Author Type: Digital Artist Filed: 01/11/17 1184 Date of Service: 01/11/17 1348 Status: Signed Internal Grinder Tender: JAMIE Tracey (Digital Artist) CM met with Pt for follow up discharge planning. Pt stated he will be returning home and t hat his Grandson will be staying with him. He also has a Granddaughter that is his paid [employer] caregiver. PT evaluation done with recommendation for return home with assist. No addit ional therapies or DME needed at this time. onver jacki Transaction, Provider Unknown - 01/11/2017 10:20 AM PDT Therapy Progress Note by Mabel Jackson PT at 01/11/17 1020 Author: Mabel Jackson PT Service: (none) Author Type: Physical Therapist Filed: 01/11/17 1104 Date of Service: 01/11/17 1020 Status: Signed Internal Grinder Tender: Mabel Jackson PT (Physical Therapist) 01/11/17 1020 PT Last Visit PT Received On 01/11/17 Reason for Treatment Spinal surgery (C7 fx, cervical fusion) Requires PT Follow Up Yes Follow up PT Only? No Assistance Required 1 person Matrix Bath Attendant Needed No Precautions Spinal Precautions Cervical Other [...] hip weakness. LE strength assessment appears symmetical, Knitter Hand weakness stiff kaleigh dent on R hand. [...] to d/c home with assist. Kay Cedeno CCC-SNOW PLOW TRACTOR OPERATOR - 01/11/2017 9:58 AM PDTFormatting of this note might be different fr om the original. Therapy Progress Note by Kay Mckeon CCC-SNOW PLOW TRACTOR OPERATOR at 01/11/17 0901 Author: Kay Mckeon CCC-SNOW PLOW TRACTOR OPERATOR Service: (none) Author Type: Speech and Language Patho logist Filed: 01/11/17 1023 Date of Service: 01/11/17957 Status: Signed Internal Grinder Tender: Kay Mckeon CCC-SNOW PLOW TRACTOR OPERATOR (Speech and Language Pathologist) 01/11/17957 SNOW PLOW TRACTOR OPERATOR Last Visit SNOW PLOW TRACTOR OPERATOR Received On 01/11/17 Requires SNOW PLOW TRACTOR OPERATOR Follow Up Yes Swallowing Assessment Eval [...] no restrictions Liquids Thin liquids: regular consistency SNOW PLOW TRACTOR OPERATOR Ready for Discharge Yes Dysphagia Goals Conversion Developer Goals Safe/efficient oral intake Pt will have [...] 1221 Date of Service: 01/11/17954 Status: Signed Internal Grinder Tender: BRI Mejia (Nurse Practitioner) [facility] Service: Halfway House Counselor Progress Note Jose Rafael Walker 66 y.o. [...] ankylosing spondylitis, who presents to transfer from [facility] with a C 7 fracture, left [...] Jan 10 2017 12:26AM Referring Provider Line: [phone] ID: [id number] Mri Cervical Spine Without Contrast [...] Jan 10 2017 12:50AM Referring Provider Line: [phone] ID: [id number] Xr Chest 1 View 01/09/2017 [...] Date of Service: 01/10/17 1345 Status: Signed Internal Grinder Tender: Faustino Dinero RRT (Registered Respiratory Therapist) Patient extubate @ 1340 to 3L Oxymask. Patient able to vocalize name. No complaints of di stress. Anesthesia, Halfway House Counselor, LOGISTICS ASSISTANT, RN and Lead FIRST AID OFFICER present in room during extubation . Jose rios, Mendez Nicole MD - 01/10/2017 1:10 PM PDT Progress Notes by Mendez Morrison MD at 01/10/17 1310 Author: Mendez Morrison MD Service: Neurosurgery Author Type: Physician Filed: 01/10/17 1498 Date of Service: 01/10/17 1310 Status: Signed Internal Grinder Tender: Mendez Morrison MD (Physician) [facility] Service: Neurosurgery Progress Note Hospital Day: LOS: [...] (01/10/17 0623) niCARdipine in NaCl Stopped (01/09/17 5426) propofol 30 mcg/kg/min (01/10/17 0400) PRN Medications [...] Briskly follows command on all 4 extremities journeyman level acoustic analyst intact R D 5 T5 B5 HG4+ [...] Units Date/Time Sputum cult w/ gram stain [[id number]] Collected: 01/09/17 1844 Specimen Information: Nasopharyngeal from Sputum Updated: 01/10/17 1207 Specimen Description SPUTUM GRAM STAIN GREATER THAN 10 WBCS/LPF GRAM STAIN LESS THAN 10 SEC/LPF GRAM STAIN 1+ GRAM STAIN GRAM POSITIVE COCCI CULTURE CULTURE IN PROGRESS POCT glucose [[id number]] (Abnormal) Collected: 01/10/1728 GLUCOSE,POC SCREEN 121 (H) mg/dL Updated: 01/10/1731 CBC w/auto diff (reflex to manual) [[id number]] (Abnormal) Collected: 01/10/17432 Specimen Information: Blood Updated: [...] AND PLT MORPHOLOGY APPEAR NORMAL Glycohemoglobin A1c [[id number]] (Abnormal) Collected: 01/10/17432 Specimen Information: Blood Updated: 01/10/17 0645 HEMOGLOBIN A1C 7.3 (H) % ESTIMATED AVG GLUCOSE 163 mg/dL Type and screen [[id number]] Collected: 01/09/17442 Specimen Information: Blood Updated: 01/10/1744 ABO/RH(D) A POSITIVE ANTIBODY SCREEN NEGATIVE ARM BAND NUMBER [id number] UNIT NUMBER [id number] BLOOD COMPONENT TYPE LEUKODEPLETED PC UNIT DIVISION 00 STATUS OF UNIT ISSUED,FINAL TRANSFUSION STATUS OK TO TRANSFUSE CROSSMATCH RESULT COMPATIBLE UNIT NUMBER [id number] BLOOD COMPONENT TYPE LEUKODEPLETED PC UNIT DIVISION 00 STATUS OF UNIT ISSUED,FINAL TRANSFUSION STATUS OK TO TRANSFUSE CROSSMATCH RESULT -- Result: COMPATIBLE Testing performed at [facility];[address] [place] [address] UNIT NUMBER [id number] BLOOD COMPONENT TYPE LEUKODEPLETED PC UNIT DIVISION 00 STATUS OF UNIT ALLOCATED TRANSFUSION STATUS OK TO TRANSFUSE CROSSMATCH RESULT COMPATIBLE UNIT NUMBER [id number] BLOOD COMPONENT TYPE LEUKODEPLETED PC UNIT DIVISION 00 STATUS OF UNIT ALLOCATED TRANSFUSION STATUS OK TO TRANSFUSE CROSSMATCH RESULT COMPATIBLE Prepare Plasma (Blood Bank) [[id number]] Collected: 01/09/17 1040 Additional comment: ORDER RECEIVED IN BLOOD BANK. Updated: 01/10/17643 UNIT NUMBER [id number] BLOOD COMPONENT TYPE PLASMA,THAWED 5 DAY UNIT DIVISION 00 STATUS OF UNIT ISSUED,FINAL TRANSFUSION STATUS OK TO TRANSFUSE UNIT NUMBER [id number] BLOOD COMPONENT TYPE PLASMA,THAWED 5 DAY UNIT DIVISION 00 STATUS OF UNIT ISSUED,FINAL TRANSFUSION STATUS -- Result: OK TO TRANSFUSE Testing performed at [facility];[address] [place] [address] Basic metabolic panel [[id number]] (Abnormal) Collected: 01/10/17432 Specimen Information: Blood Updated: 01/10/17638 SODIUM 142 mmol/L POTASSIUM 3.7 mmol/L CHLORIDE 108 mmol/L CO2 25 mmol/L ANION GAP AGAP 13 mmol/L GLUCOSE 166 (H) mg/dL BUN 14 mg/dL CREATININE 0.8 mg/dL BUN/CREAT 18 CALCIUM 7.8 (L) mg/dL EGFR >60 mL/min/1.73m2 Magnesium [[id number]] Collected: 01/10/17432 Specimen Information: Blood Updated: 01/10/17638 MAGNESIUM 2.4 mg/dL Phosphorus [[id number]] (Abnormal) Collected: 01/10/17432 Specimen Information: Blood Updated: 01/10/1739 PHOSPHORUS 1.8 (L) mg/dL POCT glucose [[id number]] (Abnormal) Collected: 01/10/17452 GLUCOSE,POC SCREEN 157 (H) mg/dL Updated: 01/10/17632 POCT glucose [[id number]] (Abnormal) Collected: 01/10/17622 GLUCOSE,POC SCREEN 163 (H) mg/dL Updated: 01/10/17632 POCT glucose [[id number]] (Abnormal) Collected: 01/10/17 0349 GLUCOSE,POC SCREEN 164 (H) mg/dL Updated: 01/10/17632 POCT glucose [[id number]] (Abnormal) Collected: 01/10/17 0246 GLUCOSE,POC SCREEN 177 (H) mg/dL Updated: 01/10/17632 POCT glucose [[id number]] (Abnormal) Collected: 01/10/17 0143 GLUCOSE,POC SCREEN 211 (H) mg/dL Updated: 01/10/17632 POCT glucose [[id number]] (Abnormal) Collected: 01/10/17 0039 GLUCOSE,POC SCREEN 210 (H) mg/dL Updated: 01/10/17632 Protime-INR [[id number]] Collected: 01/10/17 0433 Specimen Information: Blood Updated: 01/10/17 0509 INR 1.1 POCT glucose [[id number]] (Abnormal) Collected: 01/09/17 2335 GLUCOSE,POC SCREEN 274 (H) mg/dL Updated: 01/10/17 0016 POCT glucose [[id number]] (Abnormal) Collected: 01/09/17 2223 GLUCOSE,POC SCREEN 290 (H) mg/dL Updated: 01/10/17 0016 Magnesium [[id number]] Collected: 01/09/171824 Specimen Information: Blood Updated: 01/09/172024 MAGNESIUM 2.2 mg/dL Phosphorus [[id number]] Collected: 01/09/171824 Specimen Information: Blood Updated: 01/09/172024 PHOSPHORUS 3.6 mg/dL MRSA by PCR [[id number]] Collected: 01/09/171854 Specimen Information: Nasopharyngeal from Nasopharyngeal Culture Updated: 01/09/17 SOURCE NARES(NOSE) MRSA PCR NEGATIVE Comprehensive metabolic panel [[id number]] (Abnormal) Collected: 01/09/171824 Specimen Information: Blood Updated: [...] 42 U/L EGFR >60 mL/min/1.73m2 Calcium, ionized [[id number]] (Abnormal) Collected: 01/09/171824 Specimen Information: Blood Updated: 01/09/171854 CA++ 0.98 (L) mmol/L pH 7.367 CBC W/Auto Diff (Reflex to Manual) [[id number]] (Abnormal) Collected: 01/09/171824 Specimen Information: Blood Updated: [...] SCANNED, AGREES WITH AUTOMATED RESULTS. POCT glucose [[id number]] (Abnormal) Collected: 01/09/17 1749 GLUCOSE,POC SCREEN 241 (H) mg/dL Updated: 01/09/17 1753 POC arterial CG8+ [[id number]] (Abnormal) Collected: 01/09/17 1459 pH, Art 7.335 [...] HGB 12.2 (L) g/dL POC arterial CG8+ [[id number]] (Abnormal) Collected: 01/09/17 1212 pH, Art 7.348 [...] HGB 10.5 (L) g/dL POC arterial CG8+ [[id number]] (Abnormal) Collected: 01/09/17 1107 pH, Art 7.343 [...] POC HGB 11.9 (L) g/dL POCT glucose [[id number]] (Abnormal) Collected: 01/09/17 0619 GLUCOSE,POC SCREEN 221 (H) mg/dL Updated: 01/09/17 0627 POCT glucose [[id number]] (Abnormal) Collected: 01/08/17 2102 GLUCOSE,POC SCREEN 268 (H) mg/dL Updated: 01/09/17 0606 Protime-INR [[id number]] Collected: 01/09/17 0443 Specimen Information: Blood Updated: 01/09/17 0504 INR 1.2 POCT glucose [[id number]] (Abnormal) Collected: 01/08/17 1605 GLUCOSE,POC SCREEN 202 (H) mg/dL Updated: 01/08/17 1608 Urine culture [[id number]] Collected: 01/07/17 0752 Specimen Information: Urine from Urine, Catheter Updated: 01/08/17 1539 Specimen Description CATHETERIZED URINE CULTURE NO GROWTH POCT glucose [[id number]] (Abnormal) Collected: 01/08/17 1123 GLUCOSE,POC SCREEN 205 (H) mg/dL Updated: 01/08/17 1129 Protime-INR [[id number]] Collected: 01/08/17 0625 Specimen Information: Blood Updated: 01/08/17 0649 INR 1.5 POCT glucose [[id number]] (Abnormal) Collected: 01/08/17 0526 GLUCOSE,POC SCREEN 158 (H) mg/dL Updated: 01/08/17 0533 POCT glucose [[id number]] (Abnormal) Collected: 01/08/17 0003 GLUCOSE,POC SCREEN 212 (H) mg/dL Updated: 01/08/17 0015 POCT glucose [[id number]] (Abnormal) Collected: 01/07/17 1741 GLUCOSE,POC SCREEN 190 [...] Jan 10 2017 12:26AM Referring Provider Line: [phone] ID: [id number] Mri Cervical Spine Without Contrast [...] Jan 10 2017 12:50AM Referring Provider Line: [phone] ID: [id number] Mri C-spine Without Contrast 01/07/2017 [...] 07 2017 1:18AM Referring Prov ider Line: [phone] ID: [id number] Xr Chest 1 View 01/09/2017 [...] 07 2017 1:30AM Referring Pro vider Line: [phone] ID: [id number] Echo Cardiac Adult Limited 01/07/2017 [...] Date of Service: 01/10/17 1255 Status: Signed Internal Grinder Tender: Mabel Jackson PT (Physical Therapist) 01/10/17 1255 [...] Date of Service: 01/10/17 1231 Status: Signed Internal Grinder Tender: Faustino Dinero RRT (Registered Respiratory Therapist) NIF -60 anasa Santos ARNP - 01/10/2017 7:55 AM PDTFormatting of this note might be different from th e original. Progress Notes by BRI Hernandez at 01/10/17 5740 Author: BRI Hernandez Service: Halfway House Counselor Author Type: Advanced Registered Nicky se Practitioner Filed: 01/10/17 1534 Date of Service: 01/10/17 5074 Status: Signed Internal Grinder Tender: BRI Hernandez (Advanced Registered Nurse Practitioner) [facility] Service: Halfway House Counselor Progress Note Jose Rafael Walker 66 y.o. [...] ankylosing spondylitis, who presents to transfer from [facility] with a C 7 fracture, left [...] old obese male. Lying in bed in [facility] with C-Collar on. Intubated. Awake, alert, and [...] Jan 10 2017 12:26AM Referring Provider Line: [phone] ID: [id number] Mri Cervical Spine Without Contrast [...] Jan 10 2017 12:50AM Referring Provider Line: [phone] ID: [id number] PROBLEM LIST Principal Problem: Closed [...] 01/10/17822 Date of Service: 01/10/17725 Status: Signed Internal Grinder Tender: Faustino Dinero RRT (Registered Respiratory Therapist) SBT started today at 0726 am - 108 30% , patient tolerating well oManasa del rio ARNP - 01/09/2017 1:57 PM PDTFormatting of this note might be different from th e original. Progress Notes by BRI Hernandez at 01/09/17 3700 Author: BRI Hernandez Service: Halfway House Counselor Author Type: Advanced Registered Nicky se Practitioner Filed: 01/09/171954 Date of Service: 01/09/17 7762 Status: Signed Internal Grinder Tender: BRI Hernandez (Advanced Registered Nurse Practitioner) [facility] Service: Halfway House Counselor Progress Note Jose Rafael Walker 66 y.o. [...] ankylosing spondylitis, who presents to transfer from [facility] with a C 7 fracture, left [...] 07 2017 1:18AM Referring Prov ider Line: [phone] ID: [id number] Ct Facial Bones 01/07/2017 1. [...] 07 2017 1:30AM Referring Pro vider Line: [phone] ID: [id number] Echo Cardiac Adult Limited 01/07/2017 [...] initial encounter for open fracture Antiphospholipid syndrome ([facility]) Controlled type 2 diabetes mellitus with hyperglycemia ([facility]) Syncope and collapse Thyroid mass Resolved Problems: [...] Note by Melissa Gomez RN at 01/08/17 0182 Author: Melissa Gomez RN Service: (none) Author Type: Registered Nurse Filed: 01/08/17 4528 Date of Service: 01/08/172258 Status: Signed Internal Grinder Tender: Melissa Gomez RN (Registered Nurse) 24 hour chart check complete Melissa Gomez RN Vy Lott MD - 01/08/2017 8:36 PM PDTFormatting of this note might be different from the o riginal. Progress Notes by Vy Rodrigues MD at 01/08/172035 Author: Vy Rodrigues MD Service: (none) Author Type: Physician Filed: 01/08/172042 Date of Service: 01/08/172035 Status: Signed Internal Grinder Tender: Vy Rodrigues MD (Physician) [facility] Service: Hospitalist Progress Note Hospital Day: LOS: [...] Author: Karen Blanchard Service: Specialist Author Type: Psychologist Research Assistant Filed: 01/08/171915 Date of Service: 01/08/171912 Status: Signed Internal Grinder Tender: Karen Blanchard (Psychologist Research Assistant) Psychologist Research Assistant visit per spiritual distress epic referral. On arrival Munir is sitting chair just f inishing meal. States he is having neck surgery tomorrow. Munir has a grand daughter Di who is his associate director career services who he feels well supported by. He has a very large family in [facility] where is lives. Munir has had other surgeries and states is comfortable about this one an d denies any anxiety about it. TIme spent as supportive presence, active listening and in l sergio review. Pt asks for prayer specifically for surgery tomorrow that it goes smoothly and f or all involved in his care. Taloga done. Pt appreciative of cvt rn visit. 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 Pain limited in B hips Reflexes 1+ Plantar downgoing No clonus or Chnaey Gait was not tested. No TTP back DATA Recent Labs Lab 01/07/17 0608 01/06/17 2335 WBC 9.71 11.78* RBC 5.07 4.78 HGB 14.6 13.9 HCT 43.1 40.2 MCV 85.0 84.0 MCH 28.8 29.0 MCHC 33.9 34.5 RDW 44.2 44.6 PLT 243 240 MPV 7.7 7.1 DIFFTYPE AUTOMATED AUTOMATED Results Procedure Component Value Units Date/Time POCT glucose [[id number]] (Abnormal) Collected: 01/08/17 1605 GLUCOSE,POC SCREEN 202 (H) mg/dL Updated: 01/08/17 1608 Urine culture [[id number]] Collected: 01/07/17 0752 Specimen Information: Urine from Urine, Catheter Updated: 01/08/17 1539 Specimen Description CATHETERIZED URINE CULTURE NO GROWTH POCT glucose [[id number]] (Abnormal) Collected: 01/08/17 1123 GLUCOSE,POC SCREEN 205 (H) mg/dL Updated: 01/08/17 1129 Protime-INR [[id number]] Collected: 01/08/17 0625 Specimen Information: Blood Updated: 01/08/17 0649 INR 1.5 POCT glucose [[id number]] (Abnormal) Collected: 01/08/17 0526 GLUCOSE,POC SCREEN 158 (H) mg/dL Updated: 01/08/17 0533 POCT glucose [[id number]] (Abnormal) Collected: 01/08/17 0003 GLUCOSE,POC SCREEN 212 (H) mg/dL Updated: 01/08/17 0015 POCT glucose [[id number]] (Abnormal) Collected: 01/07/17 1741 GLUCOSE,POC SCREEN 190 (H) mg/dL Updated: 01/07/17 2135 CK MB [[id number]] Collected: 01/07/17 1144 MMB 2.1 ng/mL Updated: 01/07/17 1220 CK-MB Index 0.7 CPK [[id number]] Collected: 01/07/17 1144 Specimen Information: Blood Updated: 01/07/17 1220 CPK 299 U/L Troponin I [[id number]] Collected: 01/07/17 1144 Specimen Information: Blood Updated: 01/07/17 1220 TROPONIN I <0.020 ng/mL POCT glucose [[id number]] (Abnormal) Collected: 01/07/17 1137 GLUCOSE,POC SCREEN 151 (H) mg/dL Updated: 01/07/17 1140 TSH [[id number]] Collected: 01/07/17 0608 Specimen Information: Blood Updated: 01/07/17 0715 TSH 1.75 uIU/mL Basic Metabolic Panel [[id number]] (Abnormal) Collected: 01/07/17 0608 Specimen Information: Blood Updated: 01/07/17 0715 SODIUM 139 mmol/L POTASSIUM 3.9 mmol/L CHLORIDE 104 mmol/L CO2 24 mmol/L ANION GAP AGAP 15 mmol/L GLUCOSE 178 (H) mg/dL BUN 14 mg/dL CREATININE 1.0 mg/dL BUN/CREAT 14 CALCIUM 9.0 mg/dL EGFR >60 mL/min/1.73m2 Magnesium [[id number]] Collected: 01/07/17 0608 Specimen Information: Blood Updated: 01/07/17 0715 MAGNESIUM 2.2 mg/dL Phosphorus [[id number]] Collected: 01/07/17607 Specimen Information: Blood Updated: 01/07/1715 PHOSPHORUS 3.1 mg/dL Free T4 [[id number]] Collected: 01/07/17607 Specimen Information: Blood Updated: 01/07/1715 FREE T4 1.1 ng/dL CBC W/Auto Diff (Reflex to Manual) [[id number]] Collected: 01/07/17607 Specimen Information: Blood Updated: 01/07/1755 [...] K/uL BASOPHILS ABS 0.06 K/uL Troponin I [[id number]] Collected: 01/07/17607 Specimen Information: Blood Updated: 01/07/1751 TROPONIN I <0.020 ng/mL CK MB [[id number]] Collected: 01/07/1708 MMB 3.1 ng/mL Updated: 01/07/17 0651 CK-MB Index 0.9 CPK [[id number]] Collected: 01/07/17607 Specimen Information: Blood Updated: 01/07/1751 CPK 346 U/L POCT glucose [[id number]] (Abnormal) Collected: 01/07/17 0531 GLUCOSE,POC SCREEN 177 (H) mg/dL Updated: 01/07/17 0535 Cardiac Panel [[id number]] (Abnormal) Collected: 01/06/17 2335 WBC 11.78 (H) [...] 3.6 ng/mL CK-MB Index 1.0 Ethanol Level [[id number]] Collected: 01/06/17 2335 Specimen Information: Blood Updated: [...] 07 2017 1:18AM Referring Prov ider Line: [phone] ID: [id number] Ct Facial Bones 01/07/2017 1. [...] 07 2017 1:30AM Referring Pro vider Line: [phone] ID: [id number] Echo Cardiac Adult Limited 01/07/2017 [...] Management by Neena Suarez RN at 01/08/17 1422 Author: Neena Suarez RN Service: (none) Author Type: Registered Nurse Filed: 01/08/17 1428 Date of Service: 01/08/171424 Status: Signed Internal Grinder Tender: Neena Suarez RN (Registered Nurse) F/U with pt. Pending surgery tomorrow. Pt deferred placement at a SNF at this time. Av vega feels he will be able to go home with assist. He states, he has an extensive family in [place] and family he can stay with during his rehabilitation time. onver jacki Transaction, Provider Unknown - 01/08/2017 1:57 PM PDT Therapy Progress Note by Marielos Cee MA CCC-SNOW PLOW TRACTOR OPERATOR at 01/08/17 5440 Author: Marielos Cee MA CCC-SNOW PLOW TRACTOR OPERATOR Service: (none) Author Type: Speech and Language Patholo gist Filed: 01/08/17 7668 Date of Service: 01/08/176 Status: Addendum Internal Grinder Tender: Marielos Cee MA CCC-SNOW PLOW TRACTOR OPERATOR (Speech and Language Pathologist) Related Notes: Original Note by Marielos Cee MA CCC-SNOW PLOW TRACTOR OPERATOR (Speech and Language Pathologist) filed at 01/08/17 3172 01/08/17 1352 SNOW PLOW TRACTOR OPERATOR Last Visit SNOW PLOW TRACTOR OPERATOR Received On 01/08/17 Requires SNOW PLOW TRACTOR OPERATOR Follow Up Yes Swallowing Assessment Eval [...] treatments Diet tolerance monitoring;Patient/Family education Dysphagia Goals Snf Goals Safe/efficient oral intake Pt will have [...] Date of Service: 01/08/17 1017 Status: Signed Internal Grinder Tender: Beata Brito PT (Physical Therapist) 01/08/17 0911 PT Last Visit PT Received On 01/08/17 Reason for Treatment Other (comment);Spinal surgery (C7 fx, pending cervical fusion) Requires PT Follow Up Awaiting tx order Follow up PT Only? Yes (until reassess) Focus for Next Treatment Formal Balance Assessment PT Eval/Reassessment Date 01/08/17 Assistance Required 1 person Matrix Bath Attendant Needed No Precautions Spinal Precautions Cervical collar [...] Date of Service: 01/08/17 1015 Status: Signed Internal Grinder Tender: Beata Brito PT (Physical Therapist) 01/08/17 0911 PT Last Visit PT Received On 01/08/17 Reason for Treatment Other (comment);Spinal surgery (C7 fx, pending cervical fusion) Requires PT Follow Up Awaiting tx order Follow up PT Only? Yes (until reassess) Focus for Next Treatment Formal Balance Assessment PT Eval/Reassessment Date 01/08/17 Assistance Required 1 person Matrix Bath Attendant Needed No Home Environment Type of Home [...] in lift recliner Prior Function Level of Dixon Modified independent with functional mobility;Modified independent wi th ADLs;Assist with IADLs;Driving in community Falls in Past Year Yes (1 fall that led to this admission and C7 fx) Lives With Alone (family [facility]) Receives Help From Family Employment Retired for [...] able to d/c home w/assist. Low - 81755 Moderate - 50100 High - 93293 History 1-2 personal factors &/or comorbidities Examination 3 elements Clinical Presentation evolving Clinical Decision Making Complexity: Low 10146 Moderate 19310 High 62557 Activity Measure for Post Acute Care (AM-PAC) [...] 20.1 Home with home care = 17.9 senior living facility = 14 Inpatient rehabilitation facility = 13.6 Long-term acute care = 11.5 [facility] AM-PAC 6 Clicks Basic Mobility Inpatient Short Form Score Conver jacki Table AM-PAC Raw Score AM-PAC t-scale score Scale Score Standard Error [facility] 0-100% score 6 23.55 4.57 100.00% 7 [...] 1002 Date of Service: 01/08/17958 Status: Signed Internal Grinder Tender: JOZEF Camarena (Occupational Therapist) 01/08/17 0959 OT [...] 1509 Date of Service: 01/08/17928 Status: Addendum Internal Grinder Tender: Jorge Quiles MD (Physician) Related Notes: Original Note by Karen Khoury PA-C (Physician Presser [employer] Goods - Certif ied) filed at 01/08/17 0969 Progress Note Hospital Day: LOS: 1 day [...] and TIA who presents as transfer from [facility] with C7 fracture and left maxillary [...] nges with the author. Jorge Quiles MD [facility] General Surgery onversion Tr ansaction, Provider Unknown - 01/08/2017 6:03 AM PDTFormatting of this note might be differ ent from the original. Nurse Progress Note by Luz Chen RN at 01/08/17602 Author: Luz Chen RN Service: (none) Author Type: Registered Nurse Filed: 01/08/17602 Date of Service: 01/08/17602 Status: Signed Internal Grinder Tender: Luz Chen RN (Registered Nurse) 24 hour chart check complete. Luz Chen RN 01/08/2017 6:03 AM onver jacki Transaction, Provider Unknown - 01/07/2017 4:09 PM PDT Case Management by Neena Suarez RN at 01/07/17 1606 Author: Neena Suarez RN Service: (none) Author Type: Registered Nurse Filed: 01/08/17 1429 Date of Service: 01/07/17 1602 Status: Addendum Internal Grinder Tender: Neena Suarez RN (Registered Nurse) Related Notes: Original Note by Neena Suarez RN (Registered Nurse) filed at 01/07/17 1 618 01/07/17 1600 Discharge Planning Evaluation Admitting Diagnosis Fracture of 7th vertebra Readmission No Living Arrangements Alone Support Systems Friends/neighbors;Family members Type of Residence Private residence ([facility]) House type House-1 story [...] how he fell. [facility] [place] [facility] [place] [facility] [place] In [place] situation[place] Neighbor next door is close friend. Has several family and friends in the area. Admitted for nondisplaced fracture of C7. Transport from [facility]. Patient's PCP is: Scooby Mcclure Patient's [...] for assistance when needed. Has a home GARMENT FORM ASSEMBLER aide who assist with ADL's. Warfarin monitoring is done at his PCP medical clinic [facility]. Deepthi Suarez onver jacki Transaction, Provider Unknown - 01/07/2017 9:43 AM PDT Case Management by JAMIE Grimaldo at 01/07/17 0943 Author: JAMIE Grimaldo Service: (none) Author Type: Digital Artist Filed: 01/07/1752 Date of Service: 01/07/17942 Status: Signed Internal Grinder Tender: JAMIE Grimaldo (Digital Artist) 01/07/17 0900 Discharge Planning Evaluation Admitting Diagnosis Syncopal Episode, c7 fracture VEST BASTER received p/c from Cheyanne Root, [facility] Nurse with [facility] Michel vázquez ([phone] ph, fax) regarding her ability to provide support and community nursing. VEST BASTER faxed clinicals. This will help due to low staffing with [facility]. DCP: Pending clinical course CAMRYN FUNK [employer] Concierge [phone] cell onver jacki Khanaction, Provider Unknown - 01/07/2017 5:03 AM PDT Progress Notes by Jeffrey De Paz RPH at 01/07/17502 Author: Jeffrey De Paz RPH Service: (none) Author Type: Pharmacist Filed: 01/07/17502 Date of Service: 01/07/17502 Status: Signed Internal Grinder Tender: Jeffrey De Paz RPH (Pharmacist) Note ccl 91.7ml/min meds reviewed Pharmacy will follow [facility] 0503 docume nted in this encounter Plan [...] | | | | | [place] [address] | | | | | | [phone] | | | | | | | | +--------+---------+ + + + | 11/26/ | Office | Cardiology | Sissy Noyola | | 2019 | Visit | | MD Marisol [address] | | | | | | [place] | | | | | | [phone] | | | | | | | [...] | | | Fingerstick | performed at [facility];[address] | | LAB | | | | [address];[place] | | | | | | [address] | | | | + + + [...] | | | Fingerstick | performed at [facility];[address] | | LAB | | | | [address];[place] | | | | | | [address] | | | | + + + [...] | | | | | performed at [facility];[address] | | | | | | [address];[place], [place] | | | | | | [address] | | | | + + + [...] | | | | | [place] [address] | | | | + + + [...] | | | Fingerstick | performed at [facility];[address] | | LAB | | | [address];[place], [place] | | | | | | [address] | | | | + + + [...] | | | Fingerstick | performed at [facility];[address] | | LAB | | | | [address];[place] | | | | | | [address] | | | | + + + [...] | | | | | performed at [facility], [address] | | | | | | [address], | | | | | | [place] [address] | | | | + + + [...] | | | Fingerstick | performed at [facility];[address] | | LAB | | | | [address];[place] | | | | | | [address] | | | | + + + [...] | | | | | performed at [facility];[address] | | | | | | [facility];[place], [place] | | | | | | [address] | | | | + + + [...] at | | | | | | [facility], [address] [facility] | | | | | | [place], [place] | | | | | | [address] | | | | + + + [...] EXTERNAL | | | | performed at [facility], [address] | | LAB | | | | [address], | | | | | | [place] [address] | | | | + + + [...] | | | | | [place] [address] | | | | + + + [...] | | | | | | at [facility], [address] | | | | | | [facility], | | | | | | [place] [address] | | | | + + + [...] | | | Fingerstick | performed at [facility];888 | | LAB | | | | Jose Daugherty;[place], [place] | | | | | | [address] | | | | + + + [...] | | | Fingerstick | performed at [facility];[address] | | LAB | | | | [address];[place], [place] | | | | | | [address] | | | | + + + [...] | | | Fingerstick | performed at [facility];888 | | LAB | | | | Jose Daugherty;[place] | | | | | | [address] | | | | + + + [...] | | | Fingerstick | performed at [facility];888 | | LAB | | | | Jose Daugherty;[place] | | | | | | [address] | | | | + + + [...] | | | Fingerstick | performed at [facility];888 | | LAB | | | | Jose Daugherty;[place] | | | | | | [address] | | | | + + + [...] | | | Fingerstick | performed at [facility];888 | | LAB | | | | [address];[place], [place] | | | | | | [address] | | | | + + + [...] | | | | | performed at [facility];88 | | | | | | [address] [facility];[place], [place] | | | | | | [address] | | | | + + + [...] at | | | | | | [facility], [address] [place] [address] | | | | | | [facility], [place] | | | | | | [address] | | | | + + + [...] EXTERNAL | | | | performed at [facility], [address] | | LAB | | | | Josie Daugherty, | | | | | | [place] [address] | | | | + + + [...] EXTERNAL | | | | performed at [facility], [address] | | LAB | | | | Josie Daugherty, | | | | | | [place] [address] | | | | + + + [...] | | | | | | at [facility], [address] | | | | | | Josie Dauge[address], | | | | | | [place] [address] | | | | + + + [...] | | | Fingerstick | performed at [facility];888 | | LAB | | | | Jose [address];[place], [place] | | | | | | [address] | | | | + + + [...] | | | Fingerstick | performed at [facility];888 | | LAB | | | | [address];[place], [place] | | | | | | [address] | | | | + + + [...] | | | Fingerstick | performed at [facility];88 | | LAB | | | | [address];[place], [place] | | | | | | [address] | | | | + + + [...] | | | Fingerstick | performed at [facility];888 | | LAB | | | | Jose Daugherty;[place] | | | | | | [address] | | | | + + + [...] EXTERNAL | | | | performed at [facility];888 | mmol/L | LAB | | | | Jose Daug[address];[place], [place] | | | | | | [address] | | | | + + + [...] EXTERNAL | | | | performed at [facility];[address] | | LAB | | | | [address];[place], [place] | | | | | | [address] | | | | + + + [...] EXTERNAL | | | | performed at [facility] | | LAB | | | | Jose [facility];[place], [place] | | | | | | [address] | | | | + + + [...] | | | Fingerstick | performed at [facility];[address] | | LAB | | | | [address];[place] | | | | | | [address] | | | | + + + [...] | | | Fingerstick | performed at [facility];888 | | LAB | | | | Jose Daugherty;[place] | | | | | | [address] | | | | + + + [...] | | | | | performed at [facility] | | | | | | [facility];[place], [place] | | | | | | [address] | | | | + + + [...] at | | | | | | [facility], [address] [place] [address] | | | | | | [place], [place] | | | | | | [address] | | | | + + + [...] EXTERNAL | | | | performed at [facility], [address] | | LAB | | | | Josie Daugherty, | | | | | | [place] [address] | | | | + + + [...] EXTERNAL | | | | performed at [facility], [address] | | LAB | | | | Josie Daugherty, | | | | | | [place] [address] | | | | + + + [...] | | | | | | at [facility], [address] | | | | | | Josie Daugherty, | | | | | | [place] [address] | | | | + + + [...] | | | Fingerstick | performed at [facility];888 | | LAB | | | | Jose [address];[place], [place] | | | | | | [address] | | | | + + + [...] EXTERNAL | | | | performed at [facility];888 | mmol/L | LAB | | | | Jose [address];[place], [place] | | | | | | [address] | | | | + + + [...] EXTERNAL | | | | performed at [facility];[address] | | LAB | | | | [address];[place], [place] | | | | | | [address] | | | | + + + [...] EXTERNAL | | | | performed at [facility];888 | | LAB | | | | Jose Daugherty;[place] | | | | | | [address] | | | | + + + [...] | | | Fingerstick | performed at [facility];888 | | LAB | | | | Jose [address];[place], [place] | | | | | | [address] | | | | + + + [...] | | | Fingerstick | performed at [facility];888 | | LAB | | | | Jose Daugherty;[place] | | | | | | [address] | | | | + + + [...] EXTERNAL | | | | performed at [facility];888 | mmol/L | LAB | | | | Jose [address]aug[address];[place], [place] | | | | | | [address] | | | | + + + [...] | | | | | | at [facility];[address] [place] [address] | | | | | | [facility];[place] [address] | | | | + + + [...] | | | Fingerstick | performed at [facility];888 | | LAB | | | | Jose Daugherty;[place] | | | | | | [address] | | | | + + + [...] 04/05/2019 11:44 PM PDT JOSE RAFAEL Vega SENECA1950XR ABDOMEN 1 | | VIEW01/18/2017 6:06 AM [...] EXTERNAL | | | | performed at [facility], [address] | uIU/mL | LAB | | | | Josie Daugherty, | | | | | | [place] [address] | | | | + + + [...] | | | | | performed at [facility];888 | | | | | | [address] [facility];[place], [place] | | | | | | [address] | | | | + + + [...] at | | | | | | [facility];[address] [place] [address] | | | | | | vd;[place] [address] | | | | + + + [...] EXTERNAL | | | | performed at [facility] | | LAB | | | | [address] [facility];[place], [place] | | | | | | [address] | | | | + + + [...] EXTERNAL | | | | performed at [facility];[address] | | LAB | | | | [address];[place] | | | | | | [address] | | | | + + + [...] | | | | | | at [facility];[address] [place] [address] | | | | | | Blvd;[place] [address] | | | | + + + [...] | | | Fingerstick | performed at [facility];[address] | | LAB | | | | Jose Daugherty;[place] | | | | | | [address] | | | | + + + [...] | | | Fingerstick | performed at [facility];888 | | LAB | | | | Jose Daugherty;[place] | | | | | | [address] | | | | + + + [...] | | | Fingerstick | performed at [facility];[address] | | LAB | | | | Jose [address];[place], [place] | | | | | | [address] | | | | + + + [...] | | | Fingerstick | performed at [facility];[address] | | LAB | | | | [address];[place] | | | | | | [address] | | | | + + + [...] EXTERNAL | | | | performed at [facility];888 | mmol/L | LAB | | | | [address];[place], [place] | | | | | | [address] | | | | + + + [...] | | | | | performed at [facility];88 | | | | | | [address] [facility];[place], [place] | | | | | | [address] | | | | + + + [...] | | | | TCL, [address] | | | | | | [place] | | | | | | [address] | | | | + + + [...] EXTERNAL | | | | performed at [facility], [address] | | LAB | | | | Josie Daugherty, | | | | | | [place] [address] | | | | + + + [...] EXTERNAL | | | | performed at [facility], [address] | | LAB | | | | Josie Daugherty, | | | | | | [place] [address] | | | | + + + [...] | | | | | | at [facility], [address] | | | | | | [facility], | | | | | | [place] [address] | | | | + + + [...] | | | 3:17AM Referring Provider Line: [phone] ID: [id number] | | + + + [...] | | 2016 3:17AM Referring Provider Line: [phone] ID: [id number] | |COMPARISON: 01/16/2017. | | [...] 17 2017 3:17AM Referring Provider Taylor e: [phone] ID: [id number] | + + POC Glucose (01/16/2017 9:36 PM PDT) + + + + + + | Component | Value | Ref Range | Performed | Pathologist | | | | | At | Signature | + + + + + + | Glucose, | 94Comment: Testing | 65 - 99 mg/dL | EXTERNAL | | | Fingerstick | performed at [facility];[address] | | LAB | | | | [address];[place], [place] | | | | | | [address] | | | | + + + [...] LAB | | | | performed at [facility] | | | | | | Jose Daugherty;[place] | | | | | | [address] | | | | + + + [...] | | | Fingerstick | performed at [facility];[address] | | LAB | | | | [address];[place], [place] | | | | | | [address] | | | | + + + [...] | | | Fingerstick | performed at [facility] | | LAB | | | | Jose Daugherty;[place] | | | | | | [address] | | | | + + + [...] EXTERNAL | | | | performed at [facility];888 | mmol/L | LAB | | | | Jose [address]aug[address];[place], [place] | | | | | | [address] | | | | + + + [...] | | | Fingerstick | performed at [facility];[address] | | LAB | | | | Jose Daugherty;[place] | | | | | | [address] | | | | + + + [...] | | | | | performed at [facility];[address] | | | | | | [facility];[place], [place] | | | | | | [address] | | | | + + + [...] | | | Basophils | performed at [facility], [address] | K/uL | LAB | | | | Josie Daugherty, | | | | | | [place] [address] | | | | + + + [...] EXTERNAL | | | | performed at [facility], [address] | | LAB | | | | Josie Daugherty, | | | | | | [place] [address] | | | | + + + [...] EXTERNAL | | | | performed at [facility], [address] | | LAB | | | | Josie Daugherty, | | | | | | [place] [address] | | | | + + + [...] | | | | | | at [facility], [address] | | | | | | [facility], | | | | | | [place] [address] | | | | + + + [...] 5:20AM Referring Provider | | | Line: [phone] ID: [id number] | | + + + [...] Jan 16 2017 5:20AM Referring Provider Line: [phone] ID: [id number] | | | |Musculature: Postsurgical [...] Jan 16 2017 5:20AM Referring Provider Line: [phone] ID: [id number] | + + XR Abdomen AP (01/16/2017 2:42 AM PDT) + + | Specimen | + + | | + + + + + | Impressions | Performed At | + + + | Grossly negative supine 1-view abdomen x-ray. [facility] | | | Electronically signed by Williams Cooper MD on Jan 16 2017 3:10AM | | | Referring Provider Line: [phone] ID: [id number] | | + + + [...] 2017 3:10AM Referring | | Provider Line: [phone] ID: [id number] | | | |COMPARISON: None. [...] 16 2017 3:10AM Referring Provider Taylor e: [phone] ID: [id number] | + + POC Glucose (01/15/2017 8:48 PM PDT) + + + + + + | Component | Value | Ref Range | Performed | Pathologist | | | | | At | Signature | + + + + + + | Glucose, | 131 (H)Comment: Testing | 65 - 99 mg/dL | EXTERNAL | | | Fingerstick | performed at [facility];[address] | | LAB | | | | [address];[place] | | | | | | [address] | | | | + + + [...] | | | Fingerstick | performed at [facility];[address] | | LAB | | | | [address];[place] | | | | | | [address] | | | | + + + [...] EXTERNAL | | | | performed at [facility];888 | mmol/L | LAB | | | | Jose Daug[address];[place] | | | | | | [address] | | | | + + + [...] | | | Fingerstick | performed at [facility] | | LAB | | | | Jose [address]aug[address];[place], [place] | | | | | | [address] | | | | + + + [...] | | | Fingerstick | performed at [facility];[address] | | LAB | | | | [address];[place], [place] | | | | | | [address] | | | | + + + [...] | | | | | performed at [facility] | | | | | | [address];[place], [place] | | | | | | [address] | | | | + + + [...] at | | | | | | [facility], [address] [facility] [place] | | | | | | [place] | | | | | | [address] | | | | + + + [...] EXTERNAL | | | | performed at [facility], [address] | | LAB | | | | Josie [place]aug[place], | | | | | | [place] [address] | | | | + + + [...] EXTERNAL | | | | performed at [facility], [address] | | LAB | | | | Josie [address], | | | | | | [place] [address] | | | | + + + [...] W | | | | | | [facility], | | | | | | [place] [address] | | | | + + + [...] | | | Fingerstick | performed at [facility];[address] | | LAB | | | | Jose Daugherty;[place] | | | | | | [address] | | | | + + + [...] | | | Fingerstick | performed at [facility];[address] | | LAB | | | | [address];[place], [place] | | | | | | [address] | | | | + + + [...] | | | Fingerstick | performed at [facility];[address] | | LAB | | | | [address];[place] | | | | | | [address] | | | | + + + [...] lytic or blastic lesions are noted. The manager technical services image shows extensive | | | posterior [...] blastic lesions are | | noted. The manager technical services image shows extensive posterior cervical fusion instrumentation [...] | | | Fingerstick | performed at [facility];[address] | | LAB | | | | [address];[place], [place] | | | | | | [address] | | | | + + + [...] | | | | | performed at [facility];[address] | | | | | | [address];[place], [place] | | | | | | [address] | | | | + + + [...] | | | | TC, [address] [facility] | | | | | | [place] | | | | | | [address] | | | | + + + [...] | | | | | [place] [address] | | | | + + + [...] EXTERNAL | | | | performed at [facility], [address] | | LAB | | | | Josie Daugherty, | | | | | | [place] [address] | | | | + + + [...] | | | | | | at [facility], [address] | | | | | | Josie Daugherty, | | | | | | [place] [address] | | | | + + + [...] | | | Fingerstick | performed at [facility];[address] | | LAB | | | | [address];[place], [place] | | | | | | [address] | | | | + + + [...] | | | Fingerstick | performed at [facility];[address] | | LAB | | | | Jose Daugherty;[place] | | | | | | [address] | | | | + + + [...] | | | Fingerstick | performed at [facility];[address] | | LAB | | | | [address];[place], [place] | | | | | | [address] | | | | + + + [...] | | | Fingerstick | performed at [facility];[address] | | LAB | | | | Jose [address]aug[address];[place] | | | | | | [address] | | | | + + + [...] | | | Fingerstick | performed at [facility];[address] | | LAB | | | | [address];[place], [place] | | | | | | [address] | | | | + + + [...] | | | | | performed at [facility];[address] | | | | | | [facility];[place], [place] | | | | | | [address] | | | | + + + [...] at | | | | | | [facility], [address] [facility] [place] | | | | | | [place] | | | | | | [address] | | | | + + + [...] EXTERNAL | | | | performed at [facility], [address] | | LAB | | | | Josie Daug[place], | | | | | | [place] [address] | | | | + + + [...] EXTERNAL | | | | performed at [facility], [address] | | LAB | | | | Josie Dennis, | | | | | | [place] [address] | | | | + + + [...] | | | | | [place] [address] | | | | + + + [...] | | | Fingerstick | performed at [facility];[address] | | LAB | | | | [address];[place] | | | | | | [address] | | | | + + + [...] | | | Fingerstick | performed at [facility];[address] | | LAB | | | | [address];[place] | | | | | | [address] | | | | + + + [...] | | | Fingerstick | performed at [facility];[address] | | LAB | | | | [address];[place], [place] | | | | | | [address] | | | | + + + [...] cervical | | | spine performed at [facility] 01/06/2017 FINDINGS: | | | VERTEBRAL [...] - 04/05/2019 11:44 PM PDT JOSE RAFAEL WALKERWY CERVICAL SPINE WO | | CONTRAST01/12/2017 8:13 [...] | Outside CT cervical spine performed at [facility] 01/06/2017 | | FINDINGS:VERTEBRAL BODIES: The [...] | | | | | performed at [facility] | | | | | | Jose [facility];[place], [place] | | | | | | [address] | | | | + + + [...] at | | | | | | [facility], [address] [place] [address] | | | | | | [facility], [place], [place] | | | | | | [address] | | | | + + + [...] | | | | | [place] [address] | | | | + + + [...] EXTERNAL | | | | performed at [facility], [address] | | LAB | | | | Josie [address]aug[address], | | | | | | [place] [address] | | | | + + + [...] | | | | | | at [facility], [address] | | | | | | Josie [place], | | | | | | [place] [address] | | | | + + + [...] | | | Fingerstick | performed at [facility];[address] | | LAB | | | | [address];[place], [place] | | | | | | [address] | | | | + + + [...] | | | Fingerstick | performed at [facility];[address] | | LAB | | | | Jose [address];[place], [place] | | | | | | [address] | | | | + + + [...] | | | Fingerstick | performed at [facility];[address] | | LAB | | | | [place] | | | | | | [address] | | | | + + + [...] | | | Fingerstick | performed at [facility];[address] | | LAB | | | | Jose [address];[place], [place] | | | | | | [address] | | | | + + + [...] | | | Fingerstick | performed at [facility];[address] | | LAB | | | [address];[place], [place] | | | | | | [address] | | | | + + + [...] | | | | | performed at [facility];[address] | | | | | | Jose [address];[place], [place] | | | | | | [address] | | | | + + + [...] at | | | | | | [facility], [address] [facility] | | | | | | [place] | | | | | | [address] | | | | + + + [...] | | | | | performed at [facility], [address] | | | | | | Josie Dennis, | | | | | | [place] [address] | | | | + + + [...] | | | | | performed at [facility], [address] | | | | | | [place], | | | | | | [place] [address] | | | | + + + [...] | | | | | | at [facility], [address] | | | | | | Josie [place]aug[place], | | | | | | [place] [address] | | | | + + + [...] | | | Fingerstick | performed at [facility];8 | | LAB | | | | Jose [place]aug[place] | | | | | | [address] | | | | + + + [...] | | | Fingerstick | performed at [facility];[address] | | LAB | | | | Jose [address];[place], [place] | | | | | | [address] | | | | + + + [...] | | | Fingerstick | performed at [facility];[address] | | LAB | | | | [place] | | | | | | [address] | | | | + + + [...] EXTERNAL | | | | performed at [facility];888 | mmol/L | LAB | | | | [place]aug[place] | | | | | | [address] | | | | + + + [...] EXTERNAL | | | | performed at [facility];[address] | | LAB | | | | Jose [place]aug[place] | | | | | | [address] | | | | + + + [...] EXTERNAL | | | | performed at [facility];[address] | | LAB | | | | Jose [address];[place], [place] | | | | | | [address] | | | | + + + [...] | | | Fingerstick | performed at [facility];[address] | | LAB | | | | Jose [place]aug[place] | | | | | | [address] | | | | + + + [...] | | | Fingerstick | performed at [facility];[address] | | LAB | | | | Jose [address];[place], [place] | | | | | | [address] | | | | + + + [...] | | | Fingerstick | performed at [facility];8 | | LAB | | | | Jose Daugherty;[place] | | | | | | [address] | | | | + + + [...] | | | Fingerstick | performed at [facility];[address] | | LAB | | | | Jose [address];[place], [place] | | | | | | [address] | | | | + + + [...] | | | Fingerstick | performed at [facility];[address] | | LAB | | | | Jose [place]aug[place] | | | | | | [address] | | | | + + + [...] | | | Fingerstick | performed at [facility];[address] | | LAB | | | | Jose [place] | | | | | | [address] | | | | + + + [...] | | | Fingerstick | performed at [facility];[address] | | LAB | | | | Jose Daug[address];[place] | | | | | | [address] | | | | + + + [...] | | | | | performed at [facility];[address] | | | | | | [address] [facility];[place], [place] | | | | | | [address] | | | | + + + [...] at | | | | | | [facility], [address] [facility] | | | | | | [place] | | | | | | [address] | | | | + + + [...] EXTERNAL | | | | performed at [facility], [address] | | LAB | | | | [place], | | | | | | [place] [address] | | | | + + + [...] EXTERNAL | | | | performed at [facility], [address] | | LAB | | | | [place], | | | | | | [place] [address] | | | | + + + [...] | EXTERNAL | | | A1c | [facility] | | LAB | | | [...] | | | | | performed at [facility], [address] | | | | | | [facility], | | | | | | [place] [address] | | | | + + + [...] | | | | | [place] [address] | | | | + + + [...] | | | Fingerstick | performed at [facility];[address] | | LAB | | | | Jose Daugherty;[place] | | | | | | [address] | | | | + + + [...] | | | Fingerstick | performed at [facility];[address] | | LAB | | | | [address];[place], [place] | | | | | | [address] | | | | + + + [...] | | | Fingerstick | performed at [facility];[address] | | LAB | | | | Jose Daugherty;[place] | | | | | | [address] | | | | + + + [...] | | | Fingerstick | performed at [facility];[address] | | LAB | | | | Jose [address];[place], [place] | | | | | | [address] | | | | + + + [...] | | | Fingerstick | performed at [facility];[address] | | LAB | | | | Jose Daugherty;[place] | | | | | | [address] | | | | + + + [...] | | | Fingerstick | performed at [facility];[address] | | LAB | | | | Jose Daugherty;[place] | | | | | | [address] | | | | + + + [...] | | 2016 12:50AM Referring Provider Line: [phone] ID: [id number] | | + + + [...] 2017 12:50AM Referring | | Provider Line: [phone] ID: [id number] | |IMPRESSION: | | | [...] 10 2017 12:50AM Referring Provider Line: [phone] ID: [id number] | + + MRI Brain [...] Jan 10 2017 12:26AM Referring Provider Line: [phone] ID: [id number] | | + + + [...] 2017 12:26AM Referring Provider Line: | | [phone] ID: [id number] | | | |Intracranial gas [...] 10 2017 12:26AM Referring Provider Line: [phone] ID: [id number] | + + XR Chest [...] NEGATIVE Testing | | | performed at [facility];[address] [place] [address];[place] [address] | | + + + + +---------+ [...] | | | | | performed at [facility];[address] | | | | | | [address];[place], [place] | | | | | | [address] | | | | + + + [...] EXTERNAL | | | | performed at [facility] | | LAB | | | | Jose Dennis;[place] | | | | | | [address] | | | | + + + [...] EXTERNAL | | | | performed at [facility];[address] | | LAB | | | | [address];[place], [place] | | | | | | [address] | | | | + + + [...] EXTERNAL | | | | performed at [facility];[address] | | LAB | | | | [address];[place], [place] | | | | | | [address] | | | | + + + [...] | | | | | | at [facility];[address] [place] [address] | | | | | | [facility];[place] [address] | | | | + + + [...] The data set was also examined with NewsPin 3D | | | software for evaluation [...] Guillaume - 04/05/2019 11:44 PM ENZO Vega SENECA years MaleCTA | | HEAD NECK W [...] set was also examined with | | NewsPin 3D software for evaluation of the cerebral [...] | | | Fingerstick | performed at [facility];8 | | LAB | | | | [address];[place], [place] | | | | | | [address] | | | | + + + [...] | | | POC | performed at [facility];888 | g/dL | LAB | | | | Jose Daugherty;[place] | | | | | | [address] | | | | + + + [...] | | | POC | performed at [facility];888 | g/dL | LAB | | | | Jose Daugherty;[place] | | | | | | [address] | | | | + + + [...] | | | POC | performed at [facility];888 | g/dL | LAB | | | | [address];[place], [place] | | | | | | [address] | | | | + + + [...] | | | Fingerstick | performed at [facility];[address] | | LAB | | | | [address];[place], [place] | | | | | | [address] | | | | + + + [...] + + + | BB BAND | [id number] | | EXTERNAL | | | | | | LAB | | + + + + + + | UNIT NUMBER | [id number] | | EXTERNAL | | | | [...] + + + | UNIT NUMBER | [id number] | | EXTERNAL | | | | [...] + + + | UNIT NUMBER | [id number] | | EXTERNAL | | | | [...] | | | RESULT | performed at [facility];Donna8 | | LAB | | | | [address];[place], [place] | | | | | | [address] | | | | + + + + + + | UNIT NUMBER | [id number] | | EXTERNAL | | | | [...] | | | | | performed at [facility] | | | | | | [facility];[place], [place] | | | | | | [address] | | | | + + + [...] | | | Fingerstick | performed at [facility];[address] | | LAB | | | | [address];[place] | | | | | | [address] | | | | + + + [...] | | | Fingerstick | performed at [facility];[address] | | LAB | | | | [address];[place] | | | | | | [address] | | | | + + + [...] | | | Fingerstick | performed at [facility];[address] | | LAB | | | | [address];[place] | | | | | | [address] | | | | + + + [...] | | | | | performed at [facility];[address] | | | | | | [address] [facility];[place], [place] | | | | | | [address] | | | | + + + [...] | | | Fingerstick | performed at [facility];[address] | | LAB | | | | [address] Daug[address];[place] | | | | | | [address] | | | | + + + [...] | | | Fingerstick | performed at [facility];[address] | | LAB | | | | [address] [facility];[place], [place] | | | | | | [address] | | | | + + + [...] | | | Fingerstick | performed at [facility];[address] | | LAB | | | | [address];[place] | | | | | | [address] | | | | + + + [...] | | | | | | ACUTE NH Testing | | | | | | performed at [facility];[address] | | | | | | [address];[place], [place] | | | | | | [address] | | | | + + + [...] LAB | | | | performed at [facility];[address] | | | | | | [address];[place], [place] | | | | | | [address] | | | | + + + [...] | | | Fingerstick | performed at [facility];[address] | | LAB | | | | [address];[place], [place] | | | | | | [address] | | | | + + + [...] the arterial phase data set by the manufacturing engineering technologist. 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 [...] Excursion: | | | 1.21 cm E-F [place]: 0.03 m/s EPSS: 0.99 cm HR: 75.39 [...] TV A Ervin: 0.87 m/s TV Dec [place]: 2.09 m/s2 TV Dec | | | Time: 382.76 ms TV E Ervin: 0.80 m/s TV E/A Ratio: 0.91 | | | Field Care Advocate: YULIANA Authenticated by: Leoncio Oshea Report Date/Time: [...] not well visualized. MEASUREMENTS ELLA Planimetry: 2.43 [id number] | | Planimetry: 0.00 cm2/m2RA Area: 27.57 [...] Diam: 3.72 cmLA/Ao: 0.91D-E Excursion: 1.21 cmE-F [place]: 0.03 | | m/sEPSS: 0.99 cmHR: 75.39 BPMAV maxP.18 mmHgAV meanP.31 mmHgAV Vmax: | | 2.18 m/Nola Vmean: 1.41 m/Nola VTI: 40.05 cmAVA Vmax: 1.74 cm2AVA (VTI): 1.94 | | [id number] Vmax: 0.00 cm2/m2AVAI (VTI): 0.00 cm2/m2LVCI Dopp: 2.59 l/wjaf1NEOM Dopp: | | 5.90 l/minHR: 75.72 BPMLVOT [...] A Ervin: 0.87 m/sTV | | Dec [place]: 2.09 m/s2TV Dec Time: 382.76 msTV E Ervin: 0.80 m/sTV E/A Ratio: 0.91 | | Field Care Advocate: CMAuthenticated by: Leoncio [facility] Date/Time: 01-07-2017 21:17:11 | | IMPRESSION: 1. [...] | |D-E Excursion: 1.21 cm | |E-F [place]: 0.03 m/s | |EPSS: 0.99 cm | [...] A Ervin: 0.87 m/s | |TV Dec [place]: 2.09 m/s2 | |TV Dec Time: 382.76 ms | |TV E Ervin: 0.80 m/s | |TV E/A Ratio: 0.91 | | | |Field Care Advocate: CM | |Authenticated by: Leoncio Oshea | [...] | | | | | | ACUTE NH Testing | | | | | | performed at [facility];[address] | | | | | | [address];[place], [place] | | | | | | [address] | | | | + + + [...] | | | Basophils | performed at [facility], [address] | K/uL | LAB | | | | [address]ie [address], | | | | | | [place] [address] | | | | + + + [...] EXTERNAL | | | | performed at [facility], [address] | uIU/mL | LAB | | | | [address], | | | | | | [place] [address] | | | | + + + [...] | | | (REF) | performed at [facility], [address] | | LAB | | | | [address]ie [address], | | | | | | [place] [address] | | | | + + + [...] | | | | | performed at [facility], [address] | | | | | | Josie [address], | | | | | | [place] [address] | | | | + + + [...] | | | | | [place] [address] | | | | + + + [...] EXTERNAL | | | | performed at [facility];[address] | | LAB | | | | Jose Daugherty;[place] | | | | | | [address] | | | | + + + [...] | | | | | | at [facility], [address] | | | | | | Josie [address], | | | | | | [place] [address] | | | | + + + [...] | | | Fingerstick | performed at [facility];[address] | | LAB | | | | Jose [address];[place] | | | | | | [address] | | | | + + + [...] left | | | submandibular space, 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 3. 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 No | | evidence of acute fracture or malalignment involving the spine. However, given the | | ankylosed spine MRI of the spine is recommended, as clinically indicated, to further | | evaluate. 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 [...] 07 2017 1:30AM Referring Provider Taylor e: [phone] ID: [id number] | + + MRI Cervical [...] | | | 1:18AM Referring Provider Line: [phone] ID: [id number] | | + + + [...] 2017 1:18AM | | Referring Provider Line: [phone] ID: [id number] | |Musculature: Normal. No edema [...] Jan 07 2017 1:18AM Referring Provider Line: [phone] ID: [id number] | + + HISTORICAL LAB [...] | | | Alcohol | performed at [facility];8 | | LAB | | | | Jose [address]augherty;[place] | | | | | | [address] | | | | + + + [...]
--- OUTSIDE RECORDS SUMMARY | ~2019-08-03 | XMS | Encounter Summary ---
Demographics + + + | Address | [address] | | | [place] [address] | + + + | Home Phone [...] Team Providers + +------+ + | Care Lab Intern Name | Role | Phone | [...] [address] | | | | | | [place], [place] | | | | | | [address] | | | +--------+ + + + [...]
--- OUTSIDE RECORDS SUMMARY | ~2019-08-03 | XMS | Clinical Summary ---
Demographics + + + | Address | [address] | | | [place] [address] | + + + | Home Phone [...] + + + | Author | LAURIEKEE JMIENEZ [facility] | + + + | Organization [...] Team Providers + +------+ + | Care Radar Mechanic Name | Role | Phone | + +------+ + | Scooby Mcclure MD | PCP | | + +------+ + Source Comments AUTUMN is fully live on both [facility] Ambulatory and [facility] InPatient.[facility] [...] | | 2021 | - | | [id number]: Qty: 1 on | | | | | | / | | 05/09/2012 by Jorge Walker, | | | | | | /[id number] | | MD at [facility] INPATIENT REV LOC | | | | | | 905 | + +------+--------+ +--------+--------+--------+ | Trabecular Metal Shell | | Left: | AYDE | | 03/21/ | 5 | | 58mImplanted: Qty: 1 on | | Hip | | | 2021 | 7-058- | | 05/09/2012 by Jorge Walker, | | | | | | 01 / | | MD at [facility] INPATIENT REV LOC | | | | | | /[id number] | | | | | | | | 366 | + +------+--------+ +--------+--------+--------+ | Polyethelene Neutral | | Left: | AYDE | | 01/19/ | 00-875 | | LinerImplanted: Qty: 1 on | | Hip | | | 2016 | - | | 05/09/2012 by Jorge Walker, | | | | | | 36 / | | MD at [facility] INPATIENT REV LOC | | | | | | /[id number] | | | | | | | | 117 | + +------+--------+ +--------+--------+--------+ | Trabecular Metal Femoral Stem | | Left: | AYDE | | 02/19/ | 00-786 | | 13mmImplanted: Qty: 1 on | | Hip | | | 2021 | 4013- | | 05/09/2012 by Jorge Walker, | | | | | | 20 / | | MD at [facility] INPATIENT REV LOC | | | | | | /[id number] | | | | | | | | 333 | + +------+--------+ +--------+--------+--------+ | Femoral Head Ceramic | | Left: | AYDE | | 01/30/ | 00-877 | | 36mm/-3.5Implanted: Qty: 1 on | | Hip | | | 2021 | 5-036- | | 05/09/2012 by Jorge Walker | | | | | | 01 / | | MD Royal at [facility] INPATIENT REV | | | | | | /[id number] | | LOC | | | | | | 43 | + +------+--------+ +--------+--------+--------+ | Ayde Total Hip Cap | | | | | | | | ChargeImplanted: Qty: 1 on | | | | | | | | 05/09/2012 at [facility] INPATIENT | | | | | | | | REV LOC | | | | | | | + +------+--------+ +--------+--------+--------+ | Stem Tm Primary 13mm Extended | | Right: | AYDE | | 11/20/ | 00-786 | | - [id number]: Qty: 1 | | Hip | | | 2022 | 4-013- | | on 03/12/2014 by Denise, | | | | | | 20 / | | Jorge Paige MD at [facility] | | | | | | /[id number] | | INPATIENT REV LOC | | | | | | 757 | + +------+--------+ +--------+--------+--------+ | Femoral Head Biolox Delta | | Right: | AYDE | | 06/22/ | 00-7 | | 36mm -3.5mm - | | Hip | | | 2022 | 5-036- | | [id number]: Qty: 1 on | | | | | | / | | 03/12/2014 by Jorge Walker | | | | | | /[address] | | MD Royal at [facility] INPATIENT REV | | | | | | 12 | | LOC | | | | | | | + +------+--------+ +--------+--------+--------+ | Tm Por St/Tm Cup/ Xlpe Ln/Cer | | | | | | | | HdImplanted: Qty: 1 on | | | | | | /98-00 | | 03/12/2014 at [facility] INPATIENT | | | | | | 01-426 | | REV LOC | | | | | | -03 / | + +------+--------+ +--------+--------+--------+ | Continuum Acetabular System | | Right: | AYDE | | 02/19/ | 00-875 | | Dome Hole Plug - | | Hip | | | 2023 | 7-000- | | [id number]: Qty: 1 on | | | | | | 01 / | | 03/12/2014 by Jorge Walker | | | | | | /[address] | | MD Royal at [facility] INPATIENT REV | | | | [...] | | | 01 / | | [id number]: Qty: 1 on | | | | | | /[address] | | 03/12/2014 by Jorge Walker | | | | | | 427 | | MD Royal at [facility] INPATIENT REV | | | | | | | | LOC | | | | | | | + +------+--------+ +--------+--------+--------+ | Continuum Longevity Neutral | | Right: | AYDE | | 09/22/ | 8751-1 | | Felton Blackburn 36 X 58 - | | Hip | | | 2018 | 336 / | | [id number]: Qty: 1 on | | | | | | | | 03/12/2014 by Jorge Walker | | | | | | /[id number] | | MD Royal at [facility] INPATIENT REV | | | | | | 246 | | LOC | | | | | | | + +------+--------+ +--------+--------+--------+ | 50 Mm PlateImplanted: Qty: 1 | | N/A: | NANCI & | | | 04.615 | | on 02/18/2018 by Pablito Barroso | | Spine | NANCI | | | .601 / | | MD Soha at [facility] INPATIENT REV | | | DEPUY | | | / | | LOC | | | | | | | + +------+--------+ +--------+--------+--------+ | 240 Mm RodsImplanted: Qty: 2 | | N/A: | NANCI & | | | 04.615 | | on 02/18/2018 by Pablito Barroso | | Spine | NANCI | | | .655 / | | MD Soha at [facility] INPATIENT REV | | | DEPUY | | | / | | LOC | | | | | | | + +------+--------+ +--------+--------+--------+ | Screw Bone 4.5mm 10mm | | N/A: | [facility] | | | 04.601 | | Titanium Occipitocervical | | Spine | | | | .110 / | | Spine Nonsterile Fusion | | | | | | / | | System - [id number]: | | | | | | | | Qty: 1 on 02/18/2018 by | | | | | | | | Pablito Barroso MD at [facility] | | | | | | [...] | | / | | System - [id number]: | | | | | | | | Qty: 1 on 02/18/2018 by | | | | | | | | Pablito Barroso MD at [facility] | | | | | | [...] | | / | | System - [id number]: | | | | | | | | Qty: 1 on 02/18/2018 by | | | | | | | | Pablito Barroso MD at [facility] | | | | | | [...] | | | | / | | [id number]: Qty: 2 on | | | | | | | | 02/18/2018 by Pablito Barroso | | | | | | | | MD Soha at [facility] INPATIENT REV | | | | | | | | LOC | | | | | | | + +------+--------+ +--------+--------+--------+ | Small ConnectorImplanted: | | N/A: | NANCI & | | | 04.615 | | Qty: 2 on 02/18/2018 by | | Bruce CHRISTINE | | | .538 / | | Pablito Barroso MD at [facility] | | | DEPUY | | | / | | INPATIENT REV LOC | | | | | | | + +------+--------+ +--------+--------+--------+ | Large ConnectorImplanted: | | N/A: | NANCI & | | | 04.615 | | Qty: 2 on 02/18/2018 by | | Bruce CHRISTINE | | | .565 / | | Pablito Barroso MD at [facility] | | | DEPUY | | | / | | INPATIENT REV LOC | | | | | | | + +------+--------+ +--------+--------+--------+ | Sealant Hemostatic Floseal | | N/A: | NGUYEN | | 07/20/ | [id number] | | Matrix Needle Free Adapter | | Spine | HEALTHCARE | | 2019 | 8 / | | 5ml - [id number]: | | | | | | /HA180 | | Qty: 1 on 02/18/2018 by | | | | | | 573 | | Pablito Barroso MD at [facility] | | | | | | [...] | | | | | | | [address] | | + +--------+ +--------+ + +--------+ | MEDICAID [place] | OHP | [id number] | 03/23/20 | [phone] | [address] | Medica | | | PLUS | | 05-Pre | 6 | [id number] | id | | | OPEN | | sent | | [place] | | | | CARD | | | | [address] | | + +--------+ +--------+ + +--------+ | [facility] | | [phone] | | | [...] | 1951 | [id number] | [place] [address] | | | blaire | | | 4 (Home) | | + +--------+ +--------+ + + | Jorge L Cisneros | Agency | Self | [birth year] | [address] | | | | | 1951 | [address] | [place] [address] | | | | | | 4 (Home) | | + +--------+ +--------+ + + Advance Directives + + + + + | Type | Date Recorded | Patient | Explanation | | | | Scraper Burrer | | + + + + + | Advance | | | | | Directives and | | | | | Living Will | | | | + + + + + | Power of | | | | | Pottery Decorator | | | | + + + [...]
--- OUTSIDE RECORDS SUMMARY | ~2019-08-03 | XMS | Encounter Summary ---
Demographics + + + | Address | [address] | | | [place] [address] | + + + | Home Phone | | + + + | Preferred Language | Unknown | + + + | Marital Status | Single | + + + | Zoroastrian Affiliation | 1041 | + + + | Race | Unknown | + + + | Ethnic Group | Unknown | + + + Author + + + | Author | [facility] | | | and Zekeana | + + + | Organization | [facility] | | | and [...] Team Providers + +------+ + | Care Futures Trader Name | Role | Phone | + [...] | | | | | regurgitatio | [place] [address] | [address] | | | | | n, | Phone: | Phone: | | | | | nonrheumatic | [phone] | [phone] | | | | | Syncope | Fax: | Fax: | | | | | and collapse | [phone] | [phone] | | | | | Procedures | [...] | | | | | Procedures | [address] | [address] | | | | | OFFICE | [address] | [address] | | | | | VISIT | WAY | [place] | | | | | REGULAR | [place], | [address] Phone: | | | | | | [place] [address] | [phone] | | | | | | Phone: | Fax: | | | | | | [phone] | [phone] | | | | | | Fax: | | | | | | | [phone] | | +--------+--------+ + + + + Encounter Details +--------+---------+ + + + | Date | Type | Department | Care Team | Description | +--------+---------+ + + + | 05/25/ | Office | [facility] | Sissy Noyola | Coronary artery | | 2019 | Visit | CARDIOLOGY [place] | MD Marisol [address] | disease involving | | | | [address] | [place] | [place] coronary | | | | [place] | [address] | artery of [place] | | | | [address] | | heart without angina | | | | [phone] | | pectoris (Primary | | | [...] Noyola MD - 05/25/2019 1:45 PM PDT MERGED WITH [facility] C[facility]IOLOG[facility] OUTPATIENT VISIT PATIENT NAME: Jorge L [...] History: Diagnosis Date Actinic keratosis Ankylosing spondylitis ([facility]) Antiphospholipid syndrome (HCC) Arthritis Autoimmune disorder ([facility]) Chronic pain 03/16/2013 Chronic serous otitis media 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 ([facility]) 02/20/2019 Deep vein thrombosis (DVT) ([facility]) Dermatitis Diabetes mellitus, type 2 ([facility]) Diverticular disease Eosinophilic colitis Gout Hyperlipidemia Hypertension Hypokalemia Inflamed seborrheic keratosis Iron deficiency anemia Joint pain Moderate dementia without behavioral disturbance ([facility]) 05/05/2018 Neuromuscular disorder ([facility]) diabetic neuropathy Obesity Other primary thrombophilia ([facility]) Protrusio acetabuli Seborrheic dermatitis Tachycardia Testicular hypofunction Thyroid disease TIA (transient ischemic attack) Tinea pedis Ulcerative enterocolitis ([facility]) Vitamin D deficiency Past Surgical History: Procedure Laterality Date ABDOMEN SURGERY CERVICAL FUSION 01/09/2017 Procedure: CERVICAL - FUSION - POSTERIOR; Surgeon: Mendez Wallis MD; Locati on: [facility] MAIN OR; Service: Neurosurgery; Laterality: N/A; C3-T2.br COLECTOMY d/t perforated diverticuli HIP ARTHROPLASTY total left and right hip OTHER SURGICAL HISTORY UNLISTED PROCEDURE ARTHROSCOPY OTHER SURGICAL HISTORY 01/12/2017 INCISION AND DRAINAGE POSTERIOR LUMBAR SPINE - Procedure: LUMBAR - DRAINAGE; Surgeon: Christiano Wallis MD; Location: [facility] MA[facility] OR; Service: Neurosurgery; Laterality: N/ A; [...] of this report have been prepared using [employer] voice recognition software. The re port was [...] [address] | | | | | | [place] [address] | | | | | | [phone] | | | | | | | | +--------+---------+ + + + | 11/26/ | Office | Cardiology | Sissy Noyola | | 2019 | Visit | | MD Marisol [address] | | | | | | [place] | | | | | | [address] | | | | | | | [...] + + | Coronary artery disease involving [place] coronary artery of [place] heart without | | angina pectoris - Primary | + + | Essential hypertension Unspecified essential hypertension | + + | Aortic valve regurgitation, nonrheumatic Aortic valve disorders | + + | Syncope and collapse | + + documented in this encounter"
--- OUTSIDE RECORDS SUMMARY | ~2019-08-03 | XMS | Encounter Summary ---
Demographics + + + | Address | [address] | | | [place] [address] | + + + | Home Phone [...] Team Providers + +------+ + | Care Wooden Boat Builder Name | Role | Phone | [...] 2012 | | [facility] [address] | [employer] ETL DEVELOPER [address] | monitoring | | | | [address] | [facility] | | | | | [facility] | [place], [place] | | | | | [address] | [address] | | | | | [facility] | [phone] | | | | | [place], [place] | | | | | | [address] | | | | | | [phone] | | | +--------+ + + + [...]
--- OUTSIDE RECORDS SUMMARY | ~2019-08-03 | XMS | Encounter Summary ---
Demographics + + + | Address | [address] | | | [place] [address] | + + + | Home Phone [...] Team Providers + +------+ + | Care Truss Designer Name | Role | Phone | + [...] Visit | at [facility] [address] | [address] | ossification | | | | [address] [facility] (Primary Dx) | | | | /[id number] | [place] [address] | | | | | [facility], | [phone] | | | | | [place] [address] | | | | | | [phone] | | | +--------+---------+ + + + [...]
--- OUTSIDE RECORDS SUMMARY | ~2019-08-03 | XMS | Encounter Summary ---
Demographics + + + | Address | [address] | | | [place] [address] | + + + | Home Phone [...] Team Providers + +------+ + | Care Security Coordinator Name | Role | Phone | [...] [address] | | | | | [address] | [facility] | | | | | Loop Mailcode: [id number] | [place], [place] | | | | | Physician's | [address] | | | | | [place], | [phone] | | | | | [place] [address] | | | | | | [phone] | | | +--------+ + + + [...]
--- OUTSIDE RECORDS SUMMARY | ~2019-08-03 | XMS | Encounter Summary ---
Demographics + + + | Address | [address] | | | [place] [address] | + + + | Home Phone [...] Team Providers + +------+ + | Care Rice Drier Operator Name | Role | Phone | [...] Documentati | Rheumatology at | [facility] | Medication | | 2012 | on | [facility] | [place], [place] | management | | | | [address] | [address] | | | | | Loop Mailcode: [id number] | | | | | | Physician's | | | | | | [place], [address] [place] [address] | | | | | | [place], [place] | | | | | | [address] | | | | | | [phone] | | | +--------+ + + + [...]
--- OUTSIDE RECORDS SUMMARY | ~2019-08-03 | XMS | Encounter Summary ---
Demographics + + + | Address | [address] | | | [place] [address] | + + + | Home Phone | | + + + | Preferred Language | Unknown | + + + | Marital Status | Single | + + + | Synagogue Affiliation | 1041 | + + + | Race | Unknown | + + + | Ethnic Group | Unknown | + + + Author + + + | Author | [facility] | | | and [place] | + + + | Organization | [facility] | | | and [place] [...] Providers + +------+ + | Care Senior Ui Designer Name | Role | Phone | [...] + + | 03/08/ | Documentati | [facility] | Taty Thacker, | Other (end of study) | | 2019 | on | CARDIOLOGY [place] | Technologist | | | | | [address] | | | | | | [place], [place] | | | | | | [address] | | | | | | [phone] | | | +--------+ + + + [...] Technologist - 03/08/2019 11:59 PM PDT Cardiac Transportation Planning Engineer Date of Event Monitor: 03/08/19 Referring Physician: [place]: Jorge L Cisneros : 1950 Age: 68 y.o. male INDICATIONS: Syncope and Collapse Dictation on: 04/22/2019 0117 by: SISSY VILLALOBOS [[id number]] documented in thi s encounter Plan of [...] | | | | | [place] [address] | | | | | | [phone] | | | | | | | | +--------+---------+ + + + | 11/26/ | Office | Cardiology | Sissy Villalobos | | | 2019 | Visit | | MD Sushil Damon | | | | | | [place] | | | | | | [phone] | | | | | | | | +--------+---------+ + + + documented as of this encounter Visit Diagnoses + + | Diagnosis | + + | Syncope and collapse | + + documented in this encounter"
--- OUTSIDE RECORDS SUMMARY | ~2019-08-03 | XMS | Encounter Summary ---
Demographics + + + | Address | [address] | | | [place] [address] | + + + | Home Phone | | + + + | Preferred Language | Unknown | + + + | Marital Status | Single | + + + | Rastafari Affiliation | 1041 | + + + | Race | Unknown | + + + | Ethnic Group | Unknown | + + + Author + + + | Author | [facility] | | | and [place] | + + + | Organization | [facility] | [...] Providers + +------+ + | Care Associate Manager Name | Role | Phone | [...] [place] | | | | | | [address] | (Fax) | | | | | [...] | | | | | [place] [address] | | | | | | [phone] | | | | | | | | +--------+---------+ + + + | 11/26/ | Office | Cardiology | ChanningTray marcbubba | | | 2019 | Visit | | MD Marisol [address] | | | | | | [place] | | | | | | [address] | | | | | | | [...]
--- OUTSIDE RECORDS SUMMARY | ~2019-08-03 | XMS | Encounter Summary ---
Demographics + + + | Address | [address] | | | [place] [address] | + + + | Home Phone [...] Team Providers + +------+ + | Care Jig Builder Name | Role | Phone | [...] | | | | | Procedures | [place], [place] | Mailcode: | | | | | CONSULT TO | [address] | OP09 | | | | | RHEUMATOLOGY | | Physician's | | | | | | | [address] | | | | | | | Floor | | | | | | | [place], [place] | | | | | | | [address] | | | | | | | Phone: | | | | | | | [phone] | | | | | | | Fax: | | | | | | | [phone] | +--------+--------+ + + + + Encounter [...] | | | Loop Mailcode: PV35 | [place], [place] | | | | | Physician's | [address] | | | | | [address], | [phone] | | | | | [place] [address] | | | | | | [phone] | | | +--------+---------+ + + + [...] findings, assessment and plan. Celina Soto M.D. [address] [place] [address] Mailcode: Pv35 [facility] [address] Yulisa Winchester MD - 8:26 AM PDT RHEUMATOLOGY FOLLOW UP-12/07/13 Last visit 05/05 CC: Chief Complaint Patient presents with Ankylosing spondylitis HPI: This is a 62 y.o. male, here for follow up of ankylosing spondylitis. -Diagnosed with in late 70' in [place] by his PCP, but was never referred [...] This was postponed sec to his uncontrolled [id number] in 07/05. Has pain and stiffness in [...] se refer to patient queationnaire [facility] PMH: Past Medical History Diagnosis Date [...] Sulfa (sulfonamide antibiotics); and Trimethoprim Social History: Jorg eL reports that he quit smoking about 32 [...] bilateral hip arthrop athy and probable erosions RI PELVIS 1 VIEW, 05/10/12 There has been [...] and plan YULISA HEARN MD RHEUMATOLOGY FELLOWS [facility] [address] [facility] Mailcode: Pv35 [place] [address] documented in this en counter Plan of [...] | + + + + + | [facility] | [address] | [place] [address] | | | SERVICES, SPECIAL | [address] [...] + | [facility] | [address] | [place] [address] | | | [place] | | | [...] | | | LABORATORY | | | [place] | | | SERVICES, | | | [...] | + + + + + | [facility] | [address] | [place] [address] | | | SERVICES, NAY | [address] | | | + + + + + documented in this encounter Visit Diagnoses + + | Diagnosis | + + | Ankylosing spondylitis (HCC) - Primary Ankylosing spondylitis | + + documented in this encounter
--- OUTSIDE RECORDS SUMMARY | ~2019-08-03 | XMS | Encounter Summary ---
Demographics + + + | Address | [address] | | | [place] [address] | + + + | Home Phone [...] Team Providers + +------+ + | Care Marker Assembler Name | Role | Phone | [...] | | | | | | [place], | | | | | | [place] [address] | | | | | | [phone] | | | +--------+ + + + [...]
--- OUTSIDE RECORDS SUMMARY | ~2019-08-03 | XMS | Encounter Summary ---
Demographics + + + | Address | [address] | | | [place] [address] | + + + | Home Phone [...] Team Providers + +------+ + | Care Cso Name | Role | Phone | + [...] | | Services [address] [place], [place] | spondylitis (HCC) | | | | [address] | [address] | | | | | Mailcode: PV430 | | | | | | [facility] | | | | | | [place], [place] | | | | | | [address] | | | | | | [phone] | | | +--------+---------+ + + + [...] might be different fro m the original. [id number] JORGE L CISNEROS Date of : 1950 Start of care: 08/22/2009 Date of onset: 05/23/2009 Referring/Attending Practitioner: Jorge Walker Primary/Referral Diagnosis/ICD-9: Encounter Diagnoses Code Name Primary? Qualifier 715.35M Osteoarthrosis, hip 720.0 Ankylosing spondylitis Insurance: Payor: MEDICAID [place] Plan: Diurnal Product Type: Medicaid Service period from: 08/22/2009 [...] change in their status. JUDY GUTIÉRREZ, PT [facility] [address] [place] [address] Mailcode: Pv430 Rosette Garnett [facility] [address] documented in this en counter Plan of [...]
--- OUTSIDE RECORDS SUMMARY | ~2019-08-03 | XMS | Encounter Summary ---
Demographics + + + | Address | [address] | | | [place] [address] | + + + | Home Phone [...] Providers + +------+ + | Care Associate Professor Of Surgery Name | Role | Phone | + [...] | | pre-operative | | | | [facility] | | examination | | | | [address] [place], [place] | | | | | | [address] | | | | | | [phone] | | | +--------+---------+ + + + [...] the surgery. Please see the list below, [facility] has a list of products [...] PM please call your surgeons' office for [id number]. PARKING Parking for patients and visitors is available in the [facility] Parking structure located across from the emergency department. Patient parking is available on level 1 and 3. Covagene d parking is available on the top [...] ADVICE FOR DAY OF SURGERY: Remove nail thai from at least one fingernail (if applicable) [...] surgeries scheduled to take place on the [place] at the [facility]: Surgeries scheduled in the [facility] ( North): registration is located on the 4th floor of [facility] (Day Surgery). Surgeries scheduled in the [facility]: registration is located on the 9th floor . For surgeries scheduled to take place at the [facility]: registration i s located on the 4th floor (Surgery Center). AVOID THESE MEDICATIONS FOR 7 DAYS BEFORE SURGERY PRODUCTS CONTAINING ASPIRIN Angeli-[place], Anacin, Anexsia with Codeine, Shun nos, Aspirin, Aspirin suppositories, Ascri ptin, Aspergum, Axotal, B-A-C, Baby Aspirin, Raji, BC Powder, Bexophene, Buffaprin, Bufferi n, Buffinol, Cama-Arthritis Strength, Congespirin, [place], Coricidin, Damason, Darvon, Dristan , Hilaria-Gesic, Digel, Dolprin #3 Tablets, Donatab, Doxaphene, Duragesic, Easprin, Ecotrin, Monalisa grin Forte, Emiprin, Emprazil, Equagesic, Equazine M, Excedrin, Fiogesic, Fiorgen PH, Fioric et, Fiorinal, 4-Way Cold Tablet Gemnisyn, Indocin, Liquprin, Lortab ASA, Magnaprin, Marnal, Meprobamate, Midol, Momentum, N orgesic, [place], Orphengesic, Pabalate, P-A-C, Percodan, Presalin, Robaxasil, Roxiprin, Tuan eto, Salocol SK-65 Compound, Sine-Aid, Sine-Off,, [place], Supac, Talwin Compound, Trigesic, Tolectin , Traiminicin, Vanquish, ZORprin, Zomax PRODUCTS CONTAINING IBUPROFEN Advil, Aleve, Haltran, Medipren, Midol, Motrin, Naproxyn, Nuprin, Rufen OTHER PRODUCTS WHICH MAY PROMOTE BLEEDING Vitamin E, Gingko Biloba, Marine Fatty Acids, [place]-3 Fish Oil Supplements documented in this encounter Progress Notes Emperatriz Dolan MD - 08/22/2009 11:41 AM PSTFormatting of this note might be different fr om the original. PREOPERATIVE CONSULT NOTE Consulting Provider: EMPERATRIZ DOLAN MD Referring Physician: Dr. Walker Primary Care Provider: Ion DE LEÓN Reason for Consult: Preoperative evaluation [...] hat after his surgery for diverticulitis at [facility] he had an episode of tachycardia post [...] no Rate of cardiac , non fatal [place], non fatal cardiac arrest 0 risk factors [...] to this patient's care. EMPERATRIZ DOLAN MD [facility] PRE[facility] CLINIC [address] [place] [id number] documented in this e ncounter Plan of Treatment + + +--------+ + + | Name | Type | Priori | Associated Diagnoses | Order Schedule | | | | ty | | | + + +--------+ + + | NC COLLECTION VENOUS | Procedures | Routin | [...] RLB | | | ([address] [facility]) [facility] [place] [address] | | | [place] [facility] [place] [address] | | + + + + + + + + | Performing | Address | City/State/Zipcode | Phone Number | | Organization | | | | + + + + + | [facility] | [address] | [place] [address] | | | LABORATORY | | | [...] | + + + + + | [facility] | [address] | [place] [address] | | | PATHOLOGY | [address] [...] | | | DEPARTMENT | | | [place] | | | OF | | | [...] | + + + + + | [facility] | [address] | [place] [address] | | | PATHOLOGY | [address] [...] | + + + + + | [facility] | [address] | [place] [address] | | | PATHOLOGY | [address] [...] DEPT OF | [address] | [place], [place] | | | CARDIOLOGY | [address] | [address] | | + + + + + [...]
--- OUTSIDE RECORDS SUMMARY | ~2019-08-03 | XMS | Encounter Summary ---
Demographics + + + | Address | [address] | | | [place] [address] | + + + | Home Phone [...] Providers + +------+ + | Care Java Solutions Architect Name | Role | Phone | [...] | spondylitis (HCC); | | | | [facility] | | Other specified | | | | [address] [place], [place] | | pre-operative | | | | [address] | | examination | | | | [phone] | | | +--------+---------+ + + + [...] | | | Royal Walker MD at [facility] | | | | | [...] in Locations Admitting [facility], ninth floor [facility] Surgery Check in Time: The Preoperative Medicine [...] it is after office hours, call the [facility] pick pulling machine operator at [phone] and ask them to page him or h er. Preparing For Your Surgery Video -- 7 minutes of instructions! Access the [facility] website [email or web address] --> POPULAR [...] his last visit in our clinic (05/03/2012 [facility] Aneesh Montemayor before his left hip [...] to this patient's care. EMPERATRIZ TIJERINA MD [facility] PREOPERATIVE MEDICINE CLINIC [address] [facility] [address] I spent 40 minutes with the [...] + +--------+ + + + | MD COLLECTION VENOUS | Routin | 03/02/2013 | [...] | | | | | | spondylitis ([facility]) | | + +--------+ + + + [...] ELLIE | [address] | [place], [place] | | | [facility]I [facility] | [address] | [address] | | | TESTS | | | | + + + + + CBC (03/02/2013 11:16 AM PDT) + +-------+ + + + | Component | Value | Ref Range | Performed | Pathologist | | | | | At | Signature | + +-------+ + + + | WBC COUNT | 7.9 | 4.4 - 11.0 K/cu | LAURIESU | | | | | mm | [...] [facility] | [address] | [place] [address] | | | SERVICES, CORE | [address] [...] the MDRD equation recommended by the | [facility] | | National Kidney [...] | + + + + + | [facility] | [address] | [place] [address] | | | SERVICES, CORE | [address] [...] [facility] | [address] | [place] [address] | | | SERVICES, | [address] [...] | + + + + + | [facility] | [address] | [place] [address] | | | SERVICES, | [address] [...] + | [facility] | [address] | [place] [address] | | | [place] | | | | + + + [...] CRABTREE | | | | | | (7244) on 03/04/2013 | | | | | | 7:58:54 AM | | | | + + + + + + + + | Specimen | + + | | + + + + + | Narrative | Performed At | + + + | Please click | [facility] | | on view image for the detailed interpretation from Wannyi results. | CARDIOLOGY | + + + + + | Procedure Note | + + | Interface, Cardiology Results - 03/04/2013 8:00 AM PDT Please click on view image | | for the detailed interpretation from Wannyi results. | + + + + + + + | Performing | Address | City/State/Zipcode | Phone Number | | Organization | | | | + + + + + | [facility] | [address] | [place], [place] | | | CARDIOLOGY | [address] | [address] | | + + + + + [...]
--- OUTSIDE RECORDS SUMMARY | ~2019-08-03 | XMS | Encounter Summary ---
Demographics + + + | Address | [address] | | | [place] [address] | + + + | Home Phone [...] Team Providers + +------+ + | Care Car Installations Supervisor Name | Role | Phone | + +------+ + | Kita Schafer MD | PCP | | + +------+ + Encounter Details +--------+ + + + + | Date | Type | Department | Care Team | Description | +--------+ + + + + | 04// | Accountant Clerk | Orthopaedics at | Jorge Walker MD | Osteoarthrosis, hip | | 2010 | | [facility] [address] | (Primary Dx) | | | | [address] | [address] | | | | | Mailcode: PV430 | [place], [place] | | | | | [facility] | [address] | | | | | [place], [place] | [phone] | | | | | [address] | | | | | | [phone] | | | +--------+ + + + [...]
--- OUTSIDE RECORDS SUMMARY | ~2019-08-03 | XMS | Encounter Summary ---
Demographics + + + | Address | [address] | | | [place] [address] | + + + | Home Phone [...] Team Providers + +------+ + | Care Marketing Finance Manager Name | Role | Phone | [...] [address] | [address] | ossification of bone | | | | [place] | [address] [place], | (Primary Dx) | | | | [id number] [facility] | [place] [address] | | | | | [facility], | [phone] | | | | | [place] [address] | | | | | | [phone] | | | +--------+---------+ + + + [...] ossification around the right hip joint. 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 ETHAN JI MD CC: A copy of this note has been sent to the referring provider, Dr. Walker.Electronically si gned by Ethan Ji MD at 03/14/2014 6:54 PM PDTMirBrittney lyle RN - 03/13/2014 6:34 PM PDTNursing Note: [...] update d accordingly. The patient lives in [place], [place], and is currently inpatient at [facility]. Vital Signs per inpatient chart. 5 minutes [...]
--- OUTSIDE RECORDS SUMMARY | ~2019-08-03 | XMS | Encounter Summary ---
Demographics + + + | Address | [address] | | | [place] [address] | + + + | Home Phone [...] Team Providers + +------+ + | Care Systems Mechanic Name | Role | Phone | + +------+ + | Gracie Mariano MD | PCP | | + +------+ + Encounter Details +--------+ + + + + | Date | Type | Department | Care Team | Description | +--------+ + + + + | 11/28/ | Documentati | Orthopaedics at | Linnea Calvo PA | | | 2016 | on | [facility] [address] | [address] | | | | | Ave Mailcode: CH12A | [place], [place] | | | | | [facility] | [address] | | | | | and Zack, | [phone] | | | | | [facility] | | | | | | Floor [facility] [place] | | | | | | [address] | | | | | | [phone] | | | +--------+ + + + [...]
--- OUTSIDE RECORDS SUMMARY | ~2019-08-03 | XMS | Encounter Summary ---
Demographics + + + | Address | [address] | | | [place] [address] | + + + | Home Phone [...] Author + + + | Author | [facility] | + + + | Organization | [facility] | + + + | [...] Team Providers + +------+ + | Care Fish Grader Name | Role | Phone | [...] ossification of bone | | | | [place] | [address], | (Primary Dx) | | | | [address]/[id number] [facility] | [place] [address] | | | | | [facility], | [phone] | | | | | [place] [address] | | | | | | [phone] | | | +--------+---------+ + + + [...] is a 63 year old man from [place], [place], with a history of ankylosis spondylit [...] lasted a week Social History: Lives in [place], [place], [place] History Social History Marital Status: Single Spouse Name: N/A Number of Children: N/A Years of Education: N/A 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 The patient lives in [place], [place], and is currently inpatient at [facility]. Vital Signs per inpatient chart. 5 [...]
--- OUTSIDE RECORDS SUMMARY | ~2019-08-03 | XMS | Encounter Summary ---
Demographics + + + | Address | [address] | | | [place] [address] | + + + | Home Phone [...] Team Providers + +------+ + | Care Core Worker Name | Role | Phone | [...] | | | | | displaced | [address] | | | | | | fracture of | Southwest | | | | | | second | [address] | | | | | | cervical | [address] | | | | | | vertebra, | [place] | | | | | | unspecified | [address] | | | | | | fracture | Phone: | | | | | | morphology, | [phone] | | | | | | initial | Fax: | | | | | | encounter | [phone] | | | | | | ([facility]) | | | | | | [...] + + | 02/15/ | Hospital | [facility] [address] | Ino Guardado, | | | 2018 - | Encounter | [address] | [address] | | | | | 14A/UHS8W [facility] | [place], [place] | | | 02/22/ | | [facility], | [address] | | | 2018 | | [place] [address] | [phone] | | | | | [phone] | | | | | | | Deandre Austin MD | | | | | | [address] | | | | | | [address] | | | | | | [place], [place] | | | | | | [address] | | | | | | [phone] | | | | | | | [...] be expected to seek care from your [facility] care provider. If you do not have [...] able to renew opioid prescriptions in a fimk-cw-mqaq clinic visit. Our clinic sees patients on [...] week. Specialty: Family Medicine Why: follow [facility] Contact information [facility] [address] [place] [address] Trauma Center at [facility]. Specialty: Trauma Center Why: As needed Contact information [facility] [facility] Mailcode: L223a [facility] [address] [facility] [address] Additional information: The [facility] is the building just past [facility]. Turn ri ght immediately past the Pavilion. The entrance to garage B will be on your right just beyon d the main doors to the Pavilion. An elevator in the parking garage will take patients direc tly to the floor of the clinic. The Trauma Clinic is located on the 2nd floor, [address]. Pl ease check in at the front office spec. Maps and directions can be found at [email or web address] .cfm Vitals on discharge: Ht 1.778 m (5' 10"), Wt 114.5 kg (252 lb 6.8 oz), BP 167/52, Pulse 69, Temperature 36.6 C (97.9 F), RR 16, SpO2 100%, BMI 36.22 kg/(m^2). Outstanding labs/studies: None Discharging Physician: David Anderson MD Attending Physician: Deandre Austin MD Associated attestation - Familia Early MD - 02/23/2018 9:15 AM PDTAttending: I saw and examined Jose Rafael Cisneros ([id number]) with the residents on 02/22/2018 and agree with the assessment and plan as outlined in this discharge summary. Familia Early MD Second Floor Operator Trauma, Critical Care & Acute Care Surgery [...] doctor if you can take an o oal-iuj-jxtyjtp medicine. Follow your doctor's directions for returning [...] "Broken Neck: Care Instructions", log into your [employer] account at http :[email or web address] Designed Rooms. You can enter [id number] in the "Agency Spotter" search box. Not on [employer]? Review the [employer] section of your After Visit Summary for directions on ho w to sign up. Current as of: November 10, 2016 Content Version: [id number] [employer]. Care instructions adapted under license by [facility] [employer] & [facility]. If you have questions about a medical condition or this instr uction, always ask your healthcare professional. [employer] disclaims any lakhwinder anty or liability for your use of this information. AttachmentsThe following attachments cannot be sent through Care Everywhere.Cervical Spinal Fusion: Post-op (Burundian)DVT (Deep Vein Thrombosis) (Burundian)documented in this encounter Medications at Time of [...] off at this time FABIENNE PAIGE PA-C [facility] [address]/uhs8w [place] [address] Tino Swanson MD - 02/21/2018 11:51 AM [...] pain control, awaiting PT/OT. Tino Cortez MD [facility] [id number] [facility] [address] Associated attestation - Familia Early MD - 02/22/2018 10:10 AM PDTAttending: I saw and examined Jose Rafael Cisneros ([id number]) with the residents on 02/21/2018 and agree with the assessment and plan as outlined in this note and participated in the planning of care. Familia Early MD Second Floor Operator Division of Trauma and Critical Care Erica [...] -Will arrange outpatient FU ERICA CALDERON PA-C [facility] [address] [place] [address] Pg [address]333 MEDICATIONS Current Facility-Administered Medications Medication acetaminophen (TYLENOL) [...] LMWH when INR is >2 Please page [phone] with any questions or concerns. Hugo Daniel M.D. Neurological Surgery Resident PGY-1 Pager: [phone] signed by Hugo Daniel MD at 02/20/2018 [...] neuro checks, pain control. Tino Cortez MD [facility] [employer] [facility] [facility] [address] Associated attestation - Munira Best MD,MPH - 02/20/2018 5:15 PM PDTI saw and evaluat ed the patient. I agree with the findings and the plan of care as documented in the residen t s note. Adjusting pain control up as the patient has acute on chronic pain. Further, cl eared for full dose anticoagulation initiation today (VTE) Munira Best MD, MPH b2b outside sales representative Trauma, Critical Care & Acute Care Surgery [facility] [place] Jakob Portillo MD - 02/19/2018 10:20 AM [...] my supervising physicians. Jakob Portillo, PGY-1 Surgery 49581 Division of Trauma Department of Surgery Mail Code: L611 [address] [place] [address] Associated attestation - Munira Best MD,MPH - 02/19/2018 8:48 PM PDTTSICU ATTENDING M EDICAL DECISION MAKING I examined this patient with the ICU team. I have personally reviewed all pertinent labar otory findings, radiographs, and physiologic parameters. I personally performed pertinent p arts of the physical examination and personally formulated the plan with the TSICU team. Munira Best MD, MPH b2b outside sales representative Trauma, Surgical Critical Care, & Acute Care Surgery [facility] Munira Fang MD - 02/19/2018 8:01 AM PDT Neurosurgery Progress Note Date: 02/19/2018 Admitting Physician: Deandre Austin MD HPI: Jose Rafael Cisneros is a 67 y.o. male admitted to [facility] for trauma Interval Update: OR [...] 41 PO2 78 81 HCO3 26.0 25.4 N1AYLQEE 95.3 96.3 CSF Results No results for [...] Please contact the neurosurgery resident on-call pager [phone] with questions. Munira Moore MD Neurological Surgery [...] my supervising physicians. Jakob Portillo, PGY-1 Surgery [address] Division of Trauma Department of Surgery Mail Code: L611 [address] [place] [address] Associated attestation - Aracelis Whittington MD - 02/21/2018 10:50 PM PDTICU Attending: I saw and examined Jose Rafael Cisneros ([id number]) with the residents on 02/18/18 and agree with t he assessment and plan as outlined in this note and participated in the planning of care. Unstable C2 fracture- OR today for fusion History of antiphospholipid antibody syndrome with DVT and stroke- will need to coordinate with neurological surgery and hematology regarding time frame for initiation of anticoagulat ion Aracelis Whittington MD FACS b2b outside sales representative Division of Trauma, Critical Care & Acute Care Surgery Munira Fang MD - 02/18/2018 12:52 PM PDT Neurosurgery Progress Note Date: 02/18/2018 Admitting Physician: Deandre Austin MD HPI: Jose Rafael Cisneros is a 67 y.o. male admitted to [facility] for trauma Interval Update: NPO [...] 41 PO2 78 81 HCO3 26.0 25.4 I4DYWVRX 95.3 96.3 CSF Results No results for [...] Please contact the neurosurgery resident on-call pager [phone] with questions. Munira Moore MD Neurological Surgery PGY2 aMunira Kumar MD - 02/17/2018 9:54 AM PDT . Neurosurgery Progress Note Date: 02/17/2018 Admitting Physician: Deandre Austin MD HPI: Jose Rafael Cisneros is a 67 y.o. male admitted to [facility] for trauma Interval Update: NPO [...] for input(s): FIO2, PH, PCO2, PO2, HCO3, GZFEC8MTD, X7DHHYRB, W8BOATAFV in the l ast 720 hours. CSF [...] Please contact the neurosurgery resident on-call pager [phone] with questions. Munira Moore MD Neurological Surgery [...] Intake/Output Summary (Last 24 hours) at 02/17/18 0779 Last data filed at 02/17/18 0705 Gross [...] Department of Surgery Mail Code: L611 [address] [place] [address] Associated attestation - Aracelis Whittington MD - 02/19/2018 10:54 PM PDTICU Attending: I saw and examined Jose Rafael Cisneros ([id number]) with Vandana Lora PA-C on 02/17/18 and [...] after spine surgery. Aracelis Whittington MD FACS crochet beader Division of Trauma, Critical Care & Acute Care Surgery Jakob Portillo MD - 02/16/2018 3:38 PM PDTPer neurosurgery, case canceled today due to OR availability. Diabetic diet started. NPO at midnight for OR 02/17. Jakob Portillo, PGY-1 Surgery 796[address] Jamie Hutton MD - 0 02/16/2018 11:34 [...] on xarelto Jamie Parra MD Neurosurgery PGY1 87089 Jakob mullen MD - 0 02/16/2018 9:25 [...] Department of Surgery Mail Code: L611 [address] [place] [address] Associated attestation - Aracelis Whittington MD - 02/17/2018 4:00 PM PDTAttending: I saw and examined Jose Rafael Cisneros ([id number]) with the residents on 02/16/18 and agree with t he assessment and plan as outlined in this note and participated in the planning of care. Aracelis Whittington MD FACS crochet beader Division of Trauma, Critical Care & Acute Care Surgery Munira Fang MD - 02/16/2018 5:00 AM PDT Neurosurgery Progress Note Date: 02/16/2018 Author: MUNIRA JACKSON MD Admitting Physician: Deandre Austin MD HPI: Jose Rafael Cisneros is a 67 y.o. male admitted to [facility] for trauma Interval Update: NPO [...] for input(s): FIO2, PH, PCO2, PO2, HCO3, JSNVH1ZOZ, Y1RMWECT, Y4QTCEFEW in the l ast 720 hours. CSF [...] Please contact the neurosurgery resident on-call pager [phone] with questions. Munira Moore MD Neurological Surgery [...] ARGUETA | [address] | [place], [place] | | | JOI SENECA OF [facility] | [address] | [address] | | | TESTS | | | [...] the report as now presented. Final signature: yMrtle | | | MD Isaías 02/22/2018 3:23 [...] + + + | AUTUMN [facility] | [address] | [place], [place] | | | BABAR TAMEZ [facility] | [address] | [address] | | | TESTS | | | [...] [facility] | [address] | [place] [address] | | | NAY KANG | PARK [...] MARYAMILETAM | [address] | [place], [place] | | | JOI POINT OF CARE | [address] | [address] | | | TESTS | | | [...] (H) | 70 - 99 mg/dL | [facility] - | | | [...] ARGUETA | [address] | [place], [place] | | | BABAR TAMEZ [facility] | [address] | [address] | | | TESTS | | | [...] MARQUAM | [address] | [place], [place] | | | BABAR TAMEZ OF TIMUR | [facility] | [address] | | | TESTS | | | [...] - MARQUAM | [address] | [place], [place] | | | JOI POINT OF CARE | [address] | [address] | | | TESTS | | | [...] (H) | 70 - 99 mg/dL | [facility] - | | | [...] | + + + + + | AUTMUN ARGUETA | [address] | [place], [place] | | | BABAR TAMEZ OF [facility] | [address] | [address] | | | TESTS | | | [...] [facility] | [address] | [place] [address] | | | NAY KANG | [address]ENN[address] [...] MARQUAM | [address] | [place], [place] | | | BABAR TAMEZ OF CARE | [address] | [address] | | | TESTS | | | [...] (H) | 70 - 99 mg/dL | [facility] - | | | [...] ARGUETA | [address] | [place], [place] | | | BABAR TAMEZ OF CARE | [address] | [address] | | | TESTS | | | [...] MARQUAM | [address] | [place], [place] | | | BABAR TAMEZ OF CARE | [address] | [address] | | | TESTS | | | [...] | + + + + + | [facility] | [address] | [place] [address] | | | [facility] | [address] | | | + + + + + US SOFT TISSUE HEAD & NECK (02/20/2018 1:09 PM PDT) + + | Specimen | + + | | + + + + + | Narrative | Performed At | + + + | EXAM: US THYROID. HISTORY: Thyroid ultrasound for mass seen on | [facility] | | CT scan. COMPARISON: CTA neck [...] necessary, edited the report. I agree with [facility] report as now presented. | | [...] ARGUETA | [address] | [place], [place] | | | JOI POINT OF CARE | [facility] | [address] | | | TESTS | | | [...] MARQUAM | [address] | [place], [place] | | | BABAR TAMEZ OF CARE | [address] | [address] | | | TESTS | | | [...] ELLIE | [address] | [place], [place] | | | BABAR TAMEZ OF CARE | [address] | [address] | | | TESTS | | | [...] (H) | 70 - 99 mg/dL | [facility] - | | | [...] ARGUETA | [address] | [place], [place] | | | JOI POINT OF CARE | [address] | [address] | | | TESTS | | | [...] + + + + + | [facility] | [address] | [place] [address] | | | NAY KANG | [address] [...] ELLIE | [address] | [place], [place] | | | BABAR TAMEZ OF CARE | [facility] | [address] | | | TESTS | | | [...] (H) | 70 - 99 mg/dL | [facility] - | | | [...] ARGUETA | [address] | [place], [place] | | | BABAR TAMEZ [facility] | [facility] | [address] | | | TESTS | | | [...] ELLIE | [address] | [place], [place] | | | BABAR TAMEZ OF [place] | [address] | [address] | | | TESTS | | | | + + + + + PROCEDURE NOTE (02/18/2018 3:25 PM PDT)[facility] VENOUS DUPLEX LOWER EXTREMITY BILAT [...] Note | + + | Service Account, Broadcast.mobi Res In Interface - 02/18/2018 3:50 PM [...] Attending | | Surgeon: Pablito Barroso MD Concrete Crusher Loader Operator(s): All López MD, | | PhD Preoperative [...] after a C7 fracture. He presented to [facility] | | via Trauma having [...] the occipital plate. A | | DePuy PolySuite Synapse plate was sized and placed on [...] These were then final tightened using the archival records clerk instrumentation. | | The area was [...] 02/18/2018 12:36:03DT: 02/18/2018 13:17:58Job #: | | [id number] | |KG/MODL | | | | | | /[id number] | + + CAPILLARY BLOOD GLUCOSE (NO [...] + + + | AUTUMN ARGUETA | [address] | [place], [place] | | | BABAR TAMEZ OF CARE | [address] | [address] | | | TESTS | | | | + + + + + PROCEDURE NOTE (02/18/2018 12:21 PM PDT) + + + | Narrative | Performed At | + + + | All Lóepz MD,PhD 02/18/2018 5:58 PM INPATIENT BRIEF | [...] MARQUAM | [address] | [place], [place] | | | BABAR TAMEZ OF [place] | [address] | [address] | | | TESTS | | | [...] - MARYAMILETAM | [address] | [place], [place] | | | BABAR TAMEZ OF TIMUR | [facility] | [address] | | | TESTS | | | [...] + + + | AUTUMN ARGUETA | [address] | [place], [place] | | | JOI POINT OF CARE | [address] | [address] | | | TESTS | | | [...] MARYAMILETAM | [address] | [place], [place] | | | BABAR TAMEZ OF TIM[place] | [facility] | [address] | | | TESTS | | | [...] [facility] | [address] | [place] [address] | | | SERVICES, CORE | PARK [...] [facility] | [address] | [place] [address] | | | PEARL, NAY | PARK [...] [facility] | [address] | [place] [address] | | | SERVICES, CORE | PARK [...] | | | LABORATORY | | | BERMUDIAN | | | SERVICES, | | | [...] the MDRD equation recommended by the | [facility] | | National Kidney Disease Education [...] | + + + + + | [facility] | [address] | [place] [address] | | | NAY KANG | [address] | | | + + + + + INTRAOPERATIVE NEURO MONITORING (02/18/2018) + + + | Narrative | Performed At | + + + | Patient Name: Jose Rafael Cisneros Date of : 1950 Medical | | | Record Number: [id number] Date of Test: 02/18/2018 Place of | | | Service: IP Intra Op (89) [id number] INTRAOPERATIVE NEURO | | | MONITORING IOM: [...] 9 @ 15 min(s), [place] [address] - Short Latency EP's | | | Upper AND Lower extremities 43870 - Central Motor EP's Upper AND | | | Lower extremities 34175 - EEG in Sleep Suggested Diagnosis: S14.152A [...] ARGUETA | [address] | [place], [place] | | | BABAR TAMEZ OF CARE | [address] | [address] | | | TESTS | | | [...] MARQUAM | [address] | [place], [place] | | | BABAR TAMEZ OF CARE | [address] | [address] | | | TESTS | | | [...] MARQUAM | [address] | [place], [place] | | | BABAR TAMEZ OF [place] | [address] | [address] | | | TESTS | | | [...] ARGUETA | [address] | [place], [place] | | | BABAR TAMEZ OF CARE | [address] | [address] | | | TESTS | | | [...] MARQUAM | [address] | [place], [place] | | | BABAR TAMEZ OF CARE | [address] | [address] | | | TESTS | | | [...] | + + + + + | [facility] | [address] | [place] [address] | | | NAY KANG | [address] [...] | + + + + + | [facility] | [address] | [place] [address] | | | SERVICES, CORE | PARK [...] [facility] | [address] | [place] [address] | | | SERVICES, NAY | [address] [...] | | | LABORATORY | | | BERMUDIAN | | | SERVICES, | | | [...] | + + + + + | [facility] | [address] | [place] [address] | | | SERVICES, CORE | [address]ENN[address] [...] BARRYAM | [address] | [place], [place] | | | BABAR TAMEZ OF TIMUR | [facility] | [address] | | | TESTS | | | [...] (H) | 70 - 99 mg/dL | [facility] - | | | [...] ELLIE | [address] | [place], [place] | | | BABAR TAMEZ OF CARE | [address] | [address] | | | TESTS | | | [...] DEPT OF | [address] | [place], [place] | | | CARDIOLOGY | [address] | [address] | | + + + + + [...] MARQUAM | [address] | [place], [place] | | | JOI POINT OF CARE | [address] | [address] | | | TESTS | | | [...] - ELLIE | [address] | [place], [place] | | | OLYMPIA FIELDS SENECA OF [facility] | [address] | [address] | | | TESTS | | | [...] | + + + + + | [facility] | [address] | [place] [address] | | | SERVICES, NAY | PARK [...] [facility] | [address] | [place] [address] | | | SERVICES, CORE | PARK [...] | + + + + + | [facility] | [address] | [place] [address] | | | NAY KANG | PARK [...] | | | LABORATORY | | | BERMUDIAN | | | SERVICES, | | | [...] | + + + + + | [facility] | [address] | [place] [address] | | | SERVICES, CORE | PARK [...] | + + + + + | [facility] | [address] | [place] [address] | | | SERVICES, CORE | [address] [...] | + + + + + | [facility] | [address] | [place] [address] | | | SERVICES, CORE | GENNARO [...] MARQUAM | [address] | [place], [place] | | | BABAR TAMEZ OF CARE | [address] | [address] | | | TESTS | | | [...] [facility] | [address] | [place] [address] | | | SERVICES, CORE | PARK [...] [facility] | [address] | [place] [address] | | | SERVICES, | [address] [...] [facility] | [address] | [place] [address] | | | SERVICES, | [address] [...] ARGUETA | [address] | [place], [place] | | | BABAR TAMEZ OF [facility] | [address] | [address] | | | TESTS | | | [...] Note | + + | Service Account, Broadcast.mobi Res In Interface - 02/15/2018 4:57 PM [...] ARGUETA | [address] | [place], [place] | | | JOI POINT OF CARE | [address] | [address] | | | TESTS | | | [...] AUTUMN ARGUETA | [address] | [place], [place] | | | JOI POINT OF CARE | [address] | [address] | | | TESTS | | | [...] | + + + + + | [facility] | [address] | [place] [address] | | | NAY KANG | [address] [...] [facility] | [address] | [place] [address] | | | NAY KANG | [address] [...] | + + + + + | [facility] | [address] | [place] [address] | | | SERVICES, CORE | GENN[address] [...] [facility] | [address] | [place] [address] | | | SERVICES, CORE | PARK [...] | + + + + + | [facility] | [address] | [place] [address] | | | SERVICES, | [address] [...] [facility] | [address] | [place] [address] | | | SERVICES, CORE | PARK [...] | | | LABORATORY | | | BERMUDIAN | | | SERVICES, | | | [...] the MDRD equation recommended by the | [facility] | | National Kidney Disease Education [...] + + | Performing | Address | City/State[facility] | Phone Number | | Organization | | | | + + + + + | [facility] | [address] | [place] [address] | | | PEARL, CORE | [address] [...] [facility] | [address] | [place] [address] | | | NAY KANG | [address] [...] + + + | [facility] | [address] | [place] | | | JOI POINT OF CARE | [facility] | [address] | | | TESTS | | | [...] | | | | last reorder) on [facility] 02/17/18 at | | | | [...] | | | | last modification) on [facility] 02/19/18 | | | | | [...]
--- OUTSIDE RECORDS SUMMARY | ~2019-08-03 | XMS | Encounter Summary ---
Demographics + + + | Address | [address] | | | [place] [address] | + + + | Home Phone [...] Providers + +------+ + | Care Drafter Heating And Ventilating Name | Role | Phone | + [...] [id number] | | | | | | [facility] | | | | | | [address], [place] | | | | | | [address] | | | | | | [phone] | | | +--------+ + + + [...] + | RETIRE | 12/28/12; 1256; 12/28/12; 5590; | 12/28/12 1256 by | 12/28/12 1550 [...] perfume, lotions or powder. Remove any nail lao from at least one fingernail. Do not [...] Stay Unit [facility]ca [address], fourth floor Room 7468 Surgery Check in Time: Someone from your surgeon's office or [facility] will provide you with information regarding [...] hours, call the [facility] carbon furnace operator helper at [phone] and ask them to page your doc tor. documented in this encounter Plan of Treatment Not on filedocumented as of this encounter Visit Diagnoses Not on filedocumented in this encounter"
--- OUTSIDE RECORDS SUMMARY | ~2019-08-03 | XMS | Encounter Summary ---
Demographics + + + | Address | [address] | | | [place] [address] | + + + | Home Phone | | + + + | Preferred Language | Unknown | + + + | Marital Status | Single | + + + | Synagogue Affiliation | BAP | + + + [...] Team Providers + +------+ + | Care Transmission Systems Operator Name | Role | Phone | [...] | | | | | | [place], [place] | | | | | | [address] | | | | | | [phone] | | | +--------+------+ + + + [...] [facility] | [address] | [place] [address] | | | PEARL, [facility] | [address] | | | + + + + + HEMOGLOBIN A1C, BLOOD (12/07/2013 9:31 AM PDT) + + + + + + | Component | Value | Ref Range | Performed | Pathologist | | | | | At | Signature | + + + + + + | HEMOGLOBIN | 6.9 (H)Comment: Hbg A1c | 4.3 - 5.6 % | [facility] | | | A1C | Interpretive [...] + | [facility] | [address] | [place] [address] | | | SERVICES, SPECIAL | PARK [...] + | [facility] | [address] | [place] [address] | | | [place] | | | [...] | | | LABORATORY | | | ICELANDIC | | | SERVICES, | | | [...] [facility] | [address] | [place] [address] | | | SERVICES, NAY | [address] | | | + + + + + documented in this encounter Visit Diagnoses + + | Diagnosis | + + | Ankylosing spondylitis (HCC) Ankylosing spondylitis | + + documented in this encounter"
--- OUTSIDE RECORDS SUMMARY | ~2019-08-03 | XMS | Encounter Summary ---
Demographics + + + | Address | [address] | | | [place] [address] | + + + | Home Phone | | + + + | Preferred Language | Unknown | + + + | Marital Status | Single | + + + | Mosque Affiliation | 1041 | + + + | Race | Unknown | + + + | Ethnic Group | Unknown | + + + Author + + + | Author | [facility] | | | and Zekeana | + + + | Organization | [facility] | | | and [...] Team Providers + +------+ + | Care Thermite Bomb Loader Name | Role | Phone | + +------+ + PCP | Unavailable | + +------+ + Encounter Details +--------+ + + + + | Date | Type | Department | Care Team | Description | +--------+ + + + + | 07/18/ | Hospital | [facility] | | | | 2006 | Encounter | MED CTR LABORATORY | | | | | | [address] | | | | | | [place] | | | | | | [address] | | | | | | [phone] | | | +--------+ + + + [...] D | | | | | | [place] [address] | | | | | | [phone] | | | | | | | | +--------+---------+ + + + | 11/26/ | Office | Cardiology | Sissy Noyola | | | 2020 | Visit | | MD Marisol [address] | | | | | | [place] | | | | | | [address] | | | | | | | | +--------+---------+ + + + documented as of this encounter Visit Diagnoses Not on filedocumented in this encounter"
--- OUTSIDE RECORDS SUMMARY | ~2019-08-03 | XMS | Encounter Summary ---
Demographics + + + | Address | [address] | | | [place] [address] | + + + | Home Phone [...] Team Providers + +------+ + | Care Booth Operator Name | Role | Phone | [...] Rd | | | | | | [place], [place] | | | | | | [address] | | | +--------+ + + + [...]
--- OUTSIDE RECORDS SUMMARY | ~2019-08-03 | XMS | Encounter Summary ---
Demographics + + + | Address | [address] | | | [place] [address] | + + + | Home Phone [...] Author + + + | Author | [facility] | + + + | Organization | [facility] | + + [...] Team Providers + +------+ + | Care J2Ee Consultant Name | Role | Phone | [...] + + + + | 09/14/ | Broadcast Director Operations | Digestive Health | Harnider Felton, | | | 2013 | | Center at [facility] [address] | [address] | | | | | [place] | [place] [address] | | | | | Mailcode: Dickens | [phone] | | | | | for Health and | | | | | | [facility], [facility] 2 | | | | | | [place], [place] | | | | | | [address] | | | | | | [phone] | | | +--------+ + + + [...]
--- OUTSIDE RECORDS SUMMARY | ~2019-08-03 | XMS | Encounter Summary ---
Demographics + + + | Address | [address] | | | [place] [address] | + + + | Home Phone [...] Team Providers + +------+ + | Care Biological Scientist Name | Role | Phone | [...] | | | | | | [place], | | | | | | [place] [address] | | | | | | [phone] | | | +--------+ + + + [...] | + +---------+ + + | [facility] DEPARTMENT OF | | | | | [...]
--- OUTSIDE RECORDS SUMMARY | ~2019-08-03 | XMS | Encounter Summary ---
Demographics + + + | Address | [address] | | | [place] [address] | + + + | Home Phone [...] + +------+ + | Care Director Of Preclinical Research Name | Role | Phone | + [...] | Rheumatology | Diagnoses | Purnima | [facility] | | | | | Ankylosing | MD Harinder | [address] | | | | | spondylitis | [address] | Pavilion | | | | | ([facility]) | [address] | Loop | | | | | Procedures | SYLMAR, | Mailcode: | | | | | CONSULT TO | [place] [address] | OP09 | | | | | RHEUMATOLOGY | Phone: | Physician's | | | | | | [phone] | [address] | | | | | | Fax: | Floor | | | | | | [phone] | [place], [place] | | | | | | | [address] | | | | | | | Phone: | | | | | | | [phone] | | | | | | | Fax: | | | | | | | [phone] | +--------+--------+ + + + + Encounter [...] | | | Loop Mailcode: PV35 | [place], [place] | | | | | Physician's | [address] | | | | | [place], | [phone] | | | | | [place] [address] | | | | | | [phone] | | | +--------+---------+ + + + [...] assessmen t and plan. Celina Soto M.D. [facility] Mailcode: Pv35 [facility] [address] Carole Winchester MD - 5:30 PM PDT RHEUMATOLOGY FOLLOW UP-03/05 Last visit 12/04 CC: Chief Complaint Patient presents with Ankylosing spondylitis HPI: This is a 62 y.o. male, here for follow up of ankylosing spondylitis. -Diagnosed with in late ' in [place] by his PCP, but was never referred [...] se refer to patient queationnaire scanned in [facility] PMH: Past Medical History Diagnosis Date [...] bilateral hip arthrop athy and probable erosions DC PELVIS 1 VIEW, 05/10/12 There has been [...] and plan CAROLE HEARN MD RHEUMATOLOGY FELLOWS [facility] Mailcode: [address] [place] [address] documented in this en counter Plan of Treatment Not on filedocumented as of this encounter Visit Diagnoses + + | Diagnosis | + + | Ankylosing spondylitis (HCC) - Primary Ankylosing spondylitis | + + documented in this encounter
--- OUTSIDE RECORDS SUMMARY | ~2019-08-03 | XMS | Encounter Summary ---
Demographics + + + | Address | [address] | | | [place] [address] | + + + | Home Phone [...] Team Providers + +------+ + | Care Engine Lathe Tender Name | Role | Phone | [...] + + | 05/09/ | Hospital | [facility] [address] | Rosa M Smart MD | | | 2011 - | Encounter | [address] | [address] | | | | | [place], | [facility] | | | 05/12/ | | [place] [address] | [place], [place] | | | 2011 | | [phone] | [address] | | | | | | [phone] | | | | | | | [...] [facility] Orthopedics first at [phone]. Diet Regular Regular diet- There are no [...] 2 weeks (or as previously scheduled). Call [phone] to confirm or schedule this appointment. PCP: As needed for any medical concerns not related to your surgery. Future Appointments Date & Time Provider Department Dept Phone Center 05/10/2012 2:15 PM Antony Patterson MD [facility] Radiation Medicine [phone] Rad Onc 05/19/2012 8:00 AM Maldonado Ewing PA-C [facility] Orthopaedics & Rehabilitation [phone] Amy thornton Deep Vein Thrombosis (Leg Blood Clot) Prevention DVT prophylaxis: You are at increased risk of forming a blood clot following your joint replacement. - We have recommended that you take Coumadin following your surgery to decrease this risk. - See discharge prescriptions for administration instructions. - Call Orthopedic Clinic at [phone] if any persistent, localized swelling that does [...] and ask for the orthopaedic surgery resident web content & social media manager. Additional Post-Op Instructions / What to Expect [...] Cox NP - 05/12/2012 1:26 PM PDTOrtho GEOGRAPHY FACULTY MEMBER Progress Note 05/12/2012 1:26 PM Author BLANCA [...] to dc to SNF BLANCA COX NP [facility] [address] [facility] [address] Gifty Gage Md - 05/12/2012 [...] Discharge likely postoperative day 3. Will ask mattress spring encaser to assess for SNF place ent. I performed a history and physical examination of the patient and discussed his management with the resident. I reviewed the resident s note and agree with the documented findings and plan of care. ROSA M SMART MD [facility] [address] [facility] [address] uerlinda, Rosa M Paige MD - 0 [...] [facility] [address] [facility] [address] osa M Smart MD - 0 05/09/2012 [...] [facility] [address] [facility] [address] documented in this enc ounter Plan of [...] - MARQUAM | [address] | [place], [place] | | | JOI POINT OF CARE | [facility] | [address] | | | TESTS | | | [...] ARGUETA | [address] | [place], [place] | | | JOI POINT OF CARE | [address] | [address] | | | TESTS | | | [...] HOSPITAL DEPARTMENT | [address] | [place] [address] | | | PATHOLOGY | [address] [...] ARGUETA | [address] | [place], [place] | | | BABAR TAMEZ OF CARE | [address] | [address] | | | TESTS | | | [...] BARRYAM | [address] | [place], [place] | | | BABAR TAMEZ OF CARE | [address] | [address] | | | TESTS | | | [...] MARQUAM | [address] | [place], [place] | | | BABAR TAMEZ OF CARE | [address] | [address] | | | TESTS | | | [...] ARGUETA | [address] | [place], [place] | | | BABAR TAMEZ OF CARE | [address] | [address] | | | TESTS | | | [...] DEPARTMENT OF | [address] | [place] [address] | | | PATHOLOGY | [address] [...] HOSPITAL DEPARTMENT | [address] | [place] [address] | | | PATHOLOGY | [address] [...] B[place] | [address] | [place], [place] | | | BABAR TAMEZ OF CARE | [address] | [address] | | | TESTS | | | [...] ARGUETA | [address] | [place], [place] | | | BABAR TAMEZ OF TIMUR | [facility] | [address] | | | TESTS | | | [...] ELLIE | [address] | [place], [place] | | | [facility] | [address] | [address] | | | TESTS | | | | + + + + + OPERATION RECORD (05/10/2012 11:16 AM PDT) + + | Transcriptions | + + | Rosa M Smart MD - 05/10/2012 7:13 AM PDT [id number] | | [id number] DENISE MANTILLA | | [id number] Date: 05/09/2012 Attending Surgeon: Rosa M | | Melinda Smart M.D. Garnett Feeder(s): aMldonado Ewing PA-C Please note, no | | [...] | near 40. The [facility] due to the | | complexityof his situation. Overall surgical time was close to 3 times what | | wouldotherwise be expected for this type of procedure. There would also behigher | | anticipated rates of associated morbidity. For all of thesereasons, the complexity | | modifier is warranted. Rosa M Smart M.D.[facility] / [id number] / [id number] / [id number] /D: | | 05/09/2012T: 05/09/2012 | |ambulatory [...] | |traveled across the state to the [place] setting due to the complexity | |of [...] Smart M.D. | |TWH / HS | |[id number] / [id number] / [id number] / | | | | | | [...] ARGUETA | [address] | [place], [place] | | | JOI POINT OF CARE | [address] | [address] | | | TESTS | | | | + + + + + INR (05/10/2012 5:07 AM PDT) + + + + + + | Component | Value | Ref Range | Performed | Pathologist | | | | | At | Signature | + + + + + + | INR | 1.30 (H)Comment: | 0.90 - 1.20 INR | [facility] | | | | INR Therapeutic [...] [facility] DEPARTMENT OF | [address] | [place] [address] | | | PATHOLOGY | [address] [...] | + + + + + | [facility] DEPARTMENT OF | [address] | [place] [address] | | | PATHOLOGY | [address] [...] DEPARTMENT OF | [address] | [place] [address] | | | PATHOLOGY | [address] [...] ARGUETA | [address] | [place], [place] | | | JOI FREELAND OF [facility] | [address] | [address] | | | TESTS | | | | + + + + + X-RAY PORTABLE PELVIS 1 VIEW (05/09/2012 5:08 PM PDT) + + + + + + | Component | Value | Ref Range | Performed | Pathologist | | | | | At | Signature | + + + + + + | X-RAY | EXAM: [place] PELVIS 1 VIEW, | | | | [...] AR[place]ETA | [address] | [place], [place] | | | JOI POINT OF CARE | [address] | [address] | | | TESTS | | | [...] | | | | | | Until [facility] 05/12/12 at 2206, mild | | [...]
--- OUTSIDE RECORDS SUMMARY | ~2019-08-03 | XMS | Encounter Summary ---
Demographics + + + | Address | [address] | | | [place] [address] | + + + | Home Phone [...] Team Providers + +------+ + | Care Test Borer Name | Role | Phone | + [...] | | | | | | [place], [place] | | | | | | [address] | | | | | | [phone] | | | +--------+ + + + [...]
--- OUTSIDE RECORDS SUMMARY | ~2019-08-03 | XMS | Encounter Summary ---
Demographics + + + | Address | [address] | | | [place] [address] | + + + | Home Phone [...] | [facility] | | | and [...] Team Providers + +------+ + | Care Relay Tester Name | Role | Phone | [...] [place] | | | | | | [address] | (Fax) | | | | | [...] | | | | | [place] [address] | | | | | | [phone] | | | | | | | | +--------+---------+ + + + | 11/26/ | Office | Cardiology | Sissy Noyola | | | 2019 | Visit | | MD Marisol [address] | | | | | | [place] | | | | | | [address] | | | | | | | | +--------+---------+ + + + documented as of this encounter Visit Diagnoses + + | Diagnosis | + + | Diagnosis unknown Other unknown and unspecified cause of morbidity or mortality | + + documented in this encounter"
--- OUTSIDE RECORDS SUMMARY | ~2019-08-03 | XMS | Encounter Summary ---
Demographics + + + | Address | [address] | | | [place] [address] | + + + | Home Phone | | + + + | Preferred Language | Unknown | + + + | Marital Status | Single | + + + | Taoist Affiliation | 1041 | + + + | Race | Unknown | + + + | Ethnic Group | Unknown | + + + Author + + + | Author | [facility] | | | and Zekeana | + + + | Organization | [facility] | | | and [...] Team Providers + +------+ + | Care Dye Winch Operator Name | Role | Phone | + +------+ + PCP | Unavailable | + +------+ + Encounter Details +--------+ + + + + | Date | Type | Department | Care Team | Description | +--------+ + + + + | 02/01/ | Hospital | [facility]ICAL | Conversion | Closed nondisplaced | | 2017 | Encounter | [facility] XRAY | Transaction, | fracture of seventh | | | | [address] | Provider Unknown | cervical vertebra, | | | | [address] [place], [place] | [phone] | unspecified fracture | | | | [address] | | morphology, initial | | | | [phone] | Oscar Veronica, | encounter (HCC) | | | | | [address] | | | | | | [address] | | | | | | [place] [address] | | | | | | [phone] | | | | | | | [...] | | | | | [place] [address] | | | | | | [phone] | | | | | | | | +--------+---------+ + + + | 11/26/ | Office | Cardiology | Sissy Noyola | | | 2019 | Visit | | MD Marisol [address] | | | | | | [place] | | | | | | [address] | | | | | | | [...]
--- OUTSIDE RECORDS SUMMARY | ~2019-08-03 | XMS | Encounter Summary ---
Demographics + + + | Address | [address] | | | [place] [address] | + + + | Home Phone | | + + + | Preferred Language | Unknown | + + + | Marital Status | Single | + + + | Rastafarian Affiliation | 1041 | + + + | Race | Unknown | + + + | Ethnic Group | Unknown | + + + Author + + + | Author | [facility] | | | and Zekeana | + + + | Organization | [facility] | | | and [...] Team Providers + +------+ + | Care Shop Fitter Name | Role | Phone | + +------+ + | Scooby Mcclure DO | PCP | | + +------+ + Encounter Details +--------+ + + + + | Date | Type | Department | Care Team | Description | +--------+ + + + + | 03/06/ | Orders Only | [facility] | Sissy Noyola | | | 2019 | | CARDIOLOGY BRADFORD Damon MD [address] | | | | | [address] | [place] | | | | | [place] | [address] | | | | | [address] | | | | | | [phone] | | | +--------+ + + + [...] | | | | | [place] [address] | | | | | | [phone] | | | | | | | | +--------+---------+ + + + | 11/26/ | Office | Cardiology | Sissy Noyola | | | 2020 | Visit | | MD Sushil Damon | | | | | | [place] | | | | | | [address] | | | | | | | | +--------+---------+ + + + documented as of this encounter Visit Diagnoses Not on filedocumented in this encounter"
--- OUTSIDE RECORDS SUMMARY | ~2019-08-03 | XMS | Encounter Summary ---
Demographics + + + | Address | [address] | | | [place] [address] | + + + | Home Phone [...] Team Providers + +------+ + | Care Assessment Consultant Name | Role | Phone | + +------+ + | Gracie Mariano MD | PCP | | + +------+ + Encounter Details +--------+ + + + + | Date | Type | Department | Care Team | Description | +--------+ + + + + | 11/21/ | Abstract | Digestive Health | Adriano Chavez, | | | 2013 | | [place] at [facility] [address] | | | | | | [address] | | | | | | Mailcode: [place] | | | | | | [facility] and | | | | | | [facility], [facility] [address] | | | | | | [place], [place] | | | | | | [address] | | | | | | [phone] | | | +--------+ + + + [...]
--- OUTSIDE RECORDS SUMMARY | ~2019-08-03 | XMS | Encounter Summary ---
Demographics + + + | Address | [address] | | | [place] [address] | + + + | Home Phone [...] Team Providers + +------+ + | Care Produce Weigher Name | Role | Phone | + [...] [place] | | | | | [address] | [facility] | | | | | [address] | [place] [address] | | | | | Mailcode: UHN83 | [phone] | | | | | [address]ca [place] | | | | | | [address] [place], [place] | Nancie Cloud CRNA | | | | | [address] | [address] | | | | | [phone] | [place] | | | | | | [place] [address] | | | | | | [phone] | | | | | | | [...]
--- OUTSIDE RECORDS SUMMARY | ~2019-08-03 | XMS | Encounter Summary ---
Demographics + + + | Address | [address] | | | [place] [address] | + + + | Home Phone [...] Providers + +------+ + | Care Orthopedic Nurse Name | Role | Phone | [...] | | | | | is, | [facility] | [address] | | | | | unspecified | & Fractur | [address] [place], | | | | | whether | [address] | [place] | | | | | generalized | [address] | [address] | | | | | or | [place], | Phone: | | | | | localized, | [place] [address] | [phone] | | | | | pelvic | Phone: | Fax: | | | | | region and | [phone] | [phone] | | | | | thigh | Fax: | | | | | | Procedures | [phone] | | | | | | REQUEST TO | | | | | | | SURGERY | | | | | | | TESTER EQUIPMENT | | | | | | | [place] | | | | | | | | | | | | | | ARTHROPLASTY | | | | | | | [place] | | | | | | | [...] | | | | Mailcode: [id number] | [place], [place] | spondylitis (HCC) | | | | [facility] | [address] | | | | | [place], [place] | [phone] | | | | | [address] | | | | | | [phone] | | | +--------+---------+ + + + [...] MD ORTHOPAEDICS AT [facility] [address] [facility] Mailcode: [id number] [place] [address] Ino Andrews Md 04/26/2014 10:18 AM PDTJorge [...] to distance [place] [address] documented in this enc ounter Plan of [...] | | | | signed / ROGERIO HTOMAS | | | | | | 04/26/2014 [...]
--- OUTSIDE RECORDS SUMMARY | ~2019-08-03 | XMS | Encounter Summary ---
Demographics + + + | Address | [address] | | | [place] [address] | + + + | Home Phone [...] Team Providers + +------+ + | Care Cms Expert Name | Role | Phone | + [...] TOTAL | | 2013 | | [facility] | [address] [facility] | HIP ARTHROPLASTY AND | | | | Rd [facility] | [facility] | VACUUM ASSISTED | | | | Hospital Admitting | [place], [place] | CLOSURE | | | | Desk Located on the | [address] | | | | | 9th floor | [phone] | | | | | [place], [place] | | | | | | [address] | | | +--------+---------+ + + + [...] might be different fr om the original. [facility]THOPAEDICS & REH[facility]IL[facility]ATION INPATIENT HOSPITAL DISCHARGE SUMMARY & INTERDISCIPLINARY INSTRUCTIONS Patient: Jorge L Cisneros CSN: [id number] Admission Date: 03/12/2014 Discharge Date: 03/16/2014 Attending Physician: Rosa M Smart MD PCP: Gracie Mariano MD Service: [facility] Orthopaedics & Rehabilitation Diagnoses Principal [...] they suspect your wound is infected. Call [facility] Orthopedics first at [phone]. Activity Weight bear as tolerated on both [...] AM Rosa M Smart Orthopaedics at [facility] [phone] Orthopedics PCP: As needed for any medical [...] our pleasure. Ender Phelps MD Pager # [phone] documented in this enc ounter Discharge Instructions Instructions Gifty Coffey RN - 03/16/2014Patient Education Materials: AVS paperw ork & dressing supplies. Provided patient with morphine, sennakot and miralax that were fill ed at our outpatient pharmacy. No personal belongings held in our safe. Pt. Did not have an y additional questions at this time. Patients transportation from [facility] transporting rogers donato back home. Additional Instructions: Per Sarah Gee NP: Pt is to take three 1 mg warfarin tabs for a tot al of 3 mg warfarin only this evening of 03/16/2014. Patient will then resume taking his norm al dose of 6mg warfarin starting on . Patient education provided by this commercial underwriter beti bowen these medication instructions. HANNA [...] home today Ender Phelps MD Pager # [phone] enise, Rosa M Paige MD - 03/15/2014 [...] possibly tomorrow Ender Phelps MD Pager # [phone] I performed a history and physical examination of the patient and discussed his management with the resident. I reviewed the resident s note and agree with the documented findings and plan of care. ROSA M SMART MD [facility] [address] [place] [address] Rosa M Cárdenas MD - 0 03/14/2014 [...] d/w YULIANA. Ender Phelps MD Pager # [phone] I performed a history and physical examination of the patient and discussed his management with the resident. I reviewed the resident s note and agree with the documented findings and plan of care. ROSA M SMART MD [facility] [address] [place] [address] Ender Camara MD - 03/13/2014 8:08 AM [...] Dispo: pending Ender Phelps MD Pager # [phone] Rosa M Cárdenas MD - 03/12/2014 5:36 PM [facility] ORTHOPAEDIC SURGERY POST OPERATIVE CHECK [...] treatment tomorrow Ender Phelps MD Pager # [phone] I performed a history and physical examination of the patient and discussed his management with the resident. I reviewed the resident s note and agree with the documented findings and plan of care. ROSA M SMART MD [facility] [address] [place] [address] Karen Stephen MD - 03/12/2014 12:32 PM [...] - [place] | [address] | [place], [place] | | | JOI POINT OF CARE | [facility] | [address] | | | TESTS | | | [...] [facility] | [address] | [place] [address] | | | SERVICES, CORE | PARK [...] | + + + + + | [facility] | [address] [facility] | [place] [address] | | | NAY KANG | GENNARO [...] | | | LABORATORY | | | SLOVENIAN | | | SERVICES, | | | [...] | + + + + + | [facility] | [address] | [place] [address] | | | SERVICES, CORE | PARK [...] ELLIE | [address] | [place], [place] | | | BABAR TAMEZ OF CARE | [address] | [address] | | | TESTS | | | [...] ELLIE | [address] | [place], [place] | | | BABAR TAMEZ OF TIMRU | [facility] | [address] | | | TESTS | | | [...] (H) | 60 - 99 mg/dL | [facility] - | | | GLUCOSE, [...] [place] | [address] | [place], [place] | | | JOI POINT OF CARE | [address] | [address] | | | TESTS | | | [...] [facility] | [address] | [place] [address] | | | SERVICES, CORE | PARK [...] | | | LABORATORY | | | SLOVENIAN | | | SERVICES, | | | [...] the MDRD equation recommended by the | [facility] | | National Kidney Disease Education Program. [...] | + + + + + | [facility] | [address] | [place] [address] | | | NAY KANG | GENNARO [...] | + + + + + | [facility] | [address] | [place] [address] | | | NAY KANG | GENNARO [...] ELLIE | [address] | [place], [place] | | | BABAR TAMEZ OF CARE | [facility] | [address] | | | TESTS | | | [...] (H) | 60 - 99 mg/dL | [facility] - | | | GLUCOSE, [...] [place] | [address] | [place], [place] | | | BABAR TAMEZ OF CARE | [facility] | [address] | | | TESTS | | | [...] [place] | [address] | [place], [place] | | | BABAR TAMEZ OF CARE | [address] | [address] | | | TESTS | | | [...] | + + + + + | [facility] | [address] | [place] [address] | | | SERVICES, CORE | PARK [...] | | | LABORATORY | | | SLOVENIAN | | | SERVICES, | | | [...] [facility] | [address] | [place] [address] | | | SERVICES, CORE | PARK [...] | + + + + + | [facility] | [address] | [place] [address] | | | SERVICES, CORE | GENNARO [...] (H) | 60 - 99 mg/dL | [facility] - | | | GLUCOSE, [...] [place] | [address] | [place], [place] | | | BABAR TAMEZ OF CARE | [address] | [address] | | | TESTS | | | [...] MARQUAM | [address] | [place], [place] | | | BABAR TAMEZ OF CARE | [address] | [address] | | | TESTS | | | [...] [place] | [address] | [place], [place] | | | BABAR TAMEZ OF CARE | [facility] | [address] | | | TESTS | | | [...] + + + | [facility] | [address] | [place], [place] | | | BABAR TAMEZ OF [facility] | [address] | [address] | | | TESTS | | | [...] [facility] | [address] | [place] [address] | | | SERVICES, CORE | PARK [...] [facility] | [address] | [place] [address] | | | SERVICES, CORE | PARK [...] | | | LABORATORY | | | SLOVENIAN | | | SERVICES, | | | [...] the MDRD equation recommended by the | [facility] | | National Kidney Disease [...] | + + + + + | [facility] | [address] | [place] [address] | | | NAY KANG | GENNARO [...] [place]QU[place] | [address] | [place], [place] | | | BABAR TAMEZ OF TIMUR | [address] | [address] | | | TESTS | | | [...] [place]ET[place] | [address] | [place], [place] | | | BABAR TAMEZ OF TIMUR | [address] | [address] | | | TESTS | | | | + + + + + X-RAY PORTABLE PELVIS 1 VIEW (03/12/2014 12:28 PM PDT) + + + + + + | Component | Value | Ref Range | Performed | Pathologist | | | | | At | Signature | + + + + + + | X-RAY | STUDY: [place] PELVIS 1 VIEW | | | | [...] | | + +---------+ + + | [facility] DEPARTMENT OF | | | [...] MARYAMILETAM | [address] | [place] | | | BABAR TAMEZ OF CARE | [address] | [address] | | | TESTS | | | [...] MARQUAM | [address] | [place], [place] | | | BABAR TAMEZ OF CARE | [facility] | [address] | | | TESTS | | | [...] [place] | [address] | [place], [place] | | | BABAR TAMEZ OF [facility] | [address] | [address] | | | TESTS | | | [...] [place] | [address] | [place], [place] | | | BABAR TAMEZ OF CARE | [address] | [address] | | | TESTS | | | [...] ELLIE | [address] | [place], [place] | | | BABAR TAMEZ OF CARE | [facility] | [address] | | | TESTS | | | [...] [place]ET[place] | [address] | [place], [place] | | | BABAR TAMEZ OF [facility] | [facility] | [address] | | | TESTS | | | [...] ELLIE | [address] | [place], [place] | | | BABAR TAMEZ OF CARE | [address] | [address] | | | TESTS | | | [...] - [place] | [address] | [place], [place] | | | BABAR TAMEZ OF TIMUR | [facility] | [address] | | | TESTS | | | [...] [place] | [address] | [place], [place] | | | JOI POINT OF TIMUR | [facility] | [address] | | | TESTS | | | [...] | + + + + + | [facility] | [address] | [place] [address] | | | SERVICES, CORE | GENNARO [...] (H) | 60 - 99 mg/dL | [facility] - | | | GLUCOSE, [...] [place] | [address] | [place], [place] | | | BABAR TAMEZ OF [facility] | [facility] | [address] | | | TESTS | | | [...]
--- OUTSIDE RECORDS SUMMARY | ~2019-08-03 | XMS | Encounter Summary ---
Demographics + + + | Address | [address] | | | [place] [address] | + + + | Home Phone [...] + + + | Author | [facility] | + + + | Organization | [facility] | + + + | [...] Team Providers + +------+ + | Care Motion Study Analyst Name | Role | Phone | [...] Visit | at [facility] [address] | [address] | ossification | | | | [address] [facility] (Primary Dx) | | | | /[id number] | [place] [address] | | | | | [facility], | [phone] | | | | | [place] [address] | | | | | | [phone] | | | +--------+---------+ + + + [...]
--- OUTSIDE RECORDS SUMMARY | ~2019-08-03 | XMS | Encounter Summary ---
Demographics + + + | Address | [address] | | | [place] [address] | + + + | Home Phone [...] + + | Author | [facility] | + + + | Organization | [facility] | + + + | [...] Team Providers + +------+ + | Care Egg Factory Worker Name | Role | Phone | + +------+ + | Scooby Mcclure MD | PCP | | + +------+ + Encounter Details +--------+ + + + + | Date | Type | Department | Care Team | Description | +--------+ + + + + | 11/27/ | Document-Sc | UNKNOWN DEPARTMENT | Other, Faculty | | | 2014 | anned | [address] [facility] | [phone] | | | | | [address] | | | | | | [place], [place] | | | | | | [address] | | | +--------+ + + + [...]
--- OUTSIDE RECORDS SUMMARY | ~2019-08-03 | XMS | Encounter Summary ---
Demographics + + + | Address | [address] | | | [place] [address] | + + + | Home Phone [...] Team Providers + +------+ + | Care Interior Design Instructor Name | Role | Phone | [...] + + | 03/08/ | Emergency | [facility] Emergency | | | | 2012 | | Department [address] | | | | | | [address] | | | | | | [facility] | | | | | | [place], [place] | | | | | | [address] | | | | | | [phone] | | | +--------+ + + + [...]
--- OUTSIDE RECORDS SUMMARY | ~2019-08-03 | XMS | Encounter Summary ---
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 Surgeries scheduled in the [facility]: registration is located on the 9th floor. Surgeries scheduled in [facility]: registration is located on the 6th floor. Surgeries scheduled in the [facility]: registration is located i n the [facility] on the first floor. For surgeries scheduled to take place at the [facility]: registration is l [...] If you use specialized medical equipment at [facility], please check with your provider before [...] surgeries scheduled to take place on the finley at the [facility]: Surgeries scheduled in the [facility] ( North): registration is located on the 4th floor of [facility] (Day Surgery). Surgeries scheduled in the [facility]: registration is located on the 9th floor. Surgeries scheduled in [facility]: registration is located on the 6th floor. Surgeries scheduled in the [facility]: registration is located i n the [facility] on the first floor. For surgeries scheduled to take place at the [facility]: registration is l [...] If you use specialized medical equipment at [facility], please check with your provider before [...] by ALLEGRA Pulliam. ROSA M SMART MD [facility] [address] [place] [address] Mailcode: [id number] [place] [phone] Jan Leal PA-C - 08/22/2009 10:51 AM [...] RLB | | | ([address]) [facility] [address] | | | [place] [address] | | + + + + + + + + | Performing | Address | City/State/Zipcode | Phone Number | | Organization | | | | + + + + + | [facility] | [address] | [place] [address] | | | LABORATORY | | | [...] | + + + + + | [facility] DEPARTMENT OF | [address] | [place] [address] | | | PATHOLOGY | [address] [...] | | | DEPARTMENT | | | [place] | | | OF | | | [...] + + + + + | [facility] | [address] | [place] [address] | | | PATHOLOGY | [address] [...] + + + + + | [facility] | [address] | [place] [address] | | | PATHOLOGY | [address] [...]
--- OUTSIDE RECORDS SUMMARY | ~2019-08-03 | XMS | Encounter Summary ---
Demographics + + + | Address | [address] | | | [place] [address] | + + + | Home Phone [...] Team Providers + +------+ + | Care Corn Husker Machine Operator Name | Role | Phone [...] | | | | | | [place], | | | | | | [place] [address] | | | | | | [phone] | | | +--------+ + + + [...] | | + +---------+ + + | [facility] DEPARTMENT OF | | | | | RADIOLOGY | | | | + +---------+ + + documented in this encounter Visit Diagnoses + + | Diagnosis | + + | Osteoarthrosis, hip Localized osteoarthrosis not specified whether primary or | | secondary, pelvic region and thigh | + + documented in this encounter"
--- OUTSIDE RECORDS SUMMARY | ~2019-08-03 | XMS | Encounter Summary ---
Demographics + + + | Address | [address] | | | [place] [address] | + + + | Home Phone [...] Providers + +------+ + | Care Corporate Strategy Analyst Name | Role | Phone | + +------+ + | Gracie Mariano MD | PCP | | + +------+ + Encounter Details +--------+ + + + + | Date | Type | Department | Care Team | Description | +--------+ + + + + | 02/15/ | Telephone | [facility]UMN [facility]ONTILLA at [facility] | Harinder Felton, | | | 2012 | | [facility] [address] | [address] | | | | | Moyer [place]en Mailcode: | [place] [address] | | | | | [facility] | [phone] | | | | | Health and Healing, | | | | | | [address] | | | | | | [place], [place] | | | | | | [address] | | | | | | [phone] | | | +--------+ + + + [...]
--- OUTSIDE RECORDS SUMMARY | ~2019-08-03 | XMS | Encounter Summary ---
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
--- OUTSIDE RECORDS SUMMARY | ~2019-08-03 | XMS | Encounter Summary ---
Demographics + + + | Address | [address] [place] | | | [place] [address] | + + + | Home Phone [...] Providers + +------+ + | Care Director College Name | Role | Phone | + [...] | CHOLECYSTECTOMY, | | | | [facility] | [address] [place], | CONVERTED TOOPEN | | | | Hospital Admitting | [place] [address] | INTRAOPERATIVE | | | | Desk Located on the | [phone] | CHOLANGIOGRAM, | | | | 9th floor | | | | | | [place], [place] | | | | | | [address] | | | +--------+---------+ + + + [...] + documented in this encounter Discharge Summaries Miltno Rodríguez MD - 03/20/2013 3:22 PM PDTI saw and evaluated the patient. I agree with the findings and the plan of care as documented in the resident s note. MILTON RODRÍGUEZ MD [facility] [address] [place] [address] romRaghavendra mantilla MD - 0 03/20/2013 3:22 [...] CVA. He was recently discharged from [facility] ([place], [place]) for acute cholecystitis. On 03/06/13 had sudden onset epigastric pain and self-presented to the hospital. Gallbladder US at that art e showed gallstones and possible acute cholecystitis. The patient eventually improved and wa s discharged for evaluation at [facility] clinic. Prior abdominal surgery includes midline [...] different f rom the original. [facility] DEPARTMENT OF SURGERY EMERGENCY GENERAL SURGERY Division [...] other applicable data points. Please refer to [facility] for this information . PHYSICAL [...] resol ution of constipation [place] [phone] [facility] A [address] [facility] [phone] ez Rainey GEOGRAPHIC INFORMATION SYSTEMS ENGINEER - 03/17/2013 2:33 PM PDT [facility] DEPARTMENT OF SURGERY EMERGENCY GENERAL SURGERY [...] [place]: [place] [phone] [facility] A [address] [place] [facility] [place] [address] Anais Mccarthy MD - 03/16/2013 8:58 AM PDT [facility] DEPARTMENT OF SURGERY EMERGENCY GENERAL SURGERY [...] other applicable data points. Please refer to [employer] for this information . PHYSICAL EXAM: LAST [...] None Fluids: Saline locked Feeding: Diabetic Analgesia: COMMERCIAL REPORTER 0.6/6mins Sedation: not indicated Thromboprophylaxis: enoxaparin, SCDs Head of bed: > 30 Ulcer prophylaxis: None Glycemic control: Insulin lispro Activity/PT/OT: Up ad farzana Yogurt: ABX on Probiotics: None TEZ RAINEY NP [facility] A [address] [place] [address] Nathalia Mccarthy MD - 03/15/2013 10:24 AM PDTFormatting of this note might be different from the tomasa l. [facility] DEPARTMENT OF SURGERY EMERGENCY GENERAL SURGERY Division of Trauma and Critical Care Attending Physician: Raf Tello MD Progress Note Note Date: 03/15/2013 Admission Date: 03/10/2013 JOSE RAFAEL CISNEROS, Hospital Day #5 INTERVAL HISTORY and SUBJECTIVE: No acute events overnight. Pt still complaining of some abdominal tightness. REVIEW OF SYSTEMS: Pain: Pain is still 03/01 with increased COMMERCIAL REPORTER 03/14 Flatus: NO Tolerating diet: Tolerating clears Nausea/Vomiting: None Bowel movement: NO Progressing with Physical Therapy: None, up ad farzana. The remainder of the complete review of system was negative. OBJECTIVE: I have reviewed the interval history and events. I have revewed the patients medications, l abs, vitals, and other applicable data points. Please refer to [facility] for this information . PHYSICAL [...] chair TID Acute on Chronic Pain - COMMERCIAL REPORTER dilaudid increase dose range and lockout. - [...] None Fluids: Saline locked Feeding: Clears Analgesia: COMMERCIAL REPORTER 0.6/6mins Sedation: not indicated Thromboprophylaxis: enoxaparin, SCDs Head of bed: > 30 Ulcer prophylaxis: None Glycemic control: Insulin lispro Activity/PT/OT: Up ad farzana Yogurt: ABX on Probiotics: [place] [phone] [facility] A [address] [place] [facility] [place] [address] ez Rainey GEOGRAPHIC INFORMATION SYSTEMS ENGINEER - 03/14/2013 9:05 AM PDT [facility] DEPARTMENT OF SURGERY EMERGENCY GENERAL SURGERY Division of Trauma and Critical Care Attending Physician: Raf Tello MD Progress Note Note Date: 03/14/2013 Admission Date: 03/10/2013 JOSE RAFAEL CISNEROS, Hospital Day #4 INTERVAL HISTORY and SUBJECTIVE: history of chronic pain. COMMERCIAL REPORTER with pain. Will adjust dos e and [...] other applicable data points. Please refer to [employer] for this information . PHYSICAL EXAM: LAST [...] chair TID Acute on Chronic Pain - COMMERCIAL REPORTER dilaudid increase dose range and lockout. - [...] D51/2 with 20kl Feeding: NPO Analgesia: dilaudid COMMERCIAL REPORTER Sedation: not indicated Thromboprophylaxis: enoxaparin 120mg bid for Antiphospholipid syndrome Head of bed: > 30 Ulcer prophylaxis: 2 Glycemic control: adequate Activity/PT/OT: Ongoing Yogurt: ABX on Probiotics: No TEZ RAINEY NP '[phone] [facility] A [address] [place] [facility] [place] [address] Richie Mandel MD - 03/14/2013 1:52 AM PDT [facility] DEPARTMENT OF SURGERY EMERGENCY GENERAL SURGERY [...] other applicable data points. Please refer to [employer] for this information . 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 - up ad farzana TID+[place] [phone] pager number [facility] A [address] [place] [facility] [place] [address] Ricky Mosley MD - 03/13/2013 8:35 AM [...] - 03/12/2013 7:10 AM PDT [facility] DEPARTMENT OF SURGERY EMERGENCY GENERAL SURGERY PROGRESS NOTE: Note Date: 03/12/2013 Admission Date: 03/10/2013 JOSE RAFAEL CISNEROS, [id number] Hospital Day #2 SUBJECTIVE: - irritation and [...] follow up: EGS TBD. ARTHUR HERRERA MD [facility] [address]A [address] [place] [address] Diagnoses: [id number] Cholecystitis 357291 Ventral hernia V72.83 Other specified pre-operative examination Arthur Murry MD - 03/11/2013 7:02 AM PDT [facility] DEPARTMENT OF SURGERY Attending Physician: Raf Tello MD Progress Note Note Date: 03/11/2013 Admission Date: 03/10/2013 JOSE RAFAEL CISNEROS, [id number] Hospital Day #1 INTERVAL HISTORY and SUBJECTIVE: [...] other applicable data points. Please refer to [facility] for this information . PHYSICAL [...] up: EGS TBD. ARTHUR HERRERA MD Pager: [phone] [facility] [address] [place] [address] documented in this en counter [...] | + + + + + | [facility] | [address] | [place] [address] | | | SERVICES, CORE | PARK [...] | + + + + + | [facility] [employer] | [address] | [place] [address] | | | SERVICES, CORE | [address] [...] | | | LABORATORY | | | PALESTINIAN | | | SERVICES, | | | [...] the MDRD equation recommended by the | [facility] | | National Kidney Disease Education Program. [...] | + + + + + | [facility] | [address] | [place] [address] | | | SERVICES, CORE | PARK [...] | + + + + + | [facility] | [address] | [place] [address] | | | SERVICESNAY | [address] [...] ELLIE | [address] | [place], [place] | | | JOI POINT OF CARE | [address] | [address] | | | TESTS | | | [...] (H) | 60 - 99 mg/dL | [facility] - | | | GLUCOSE, | | [...] + + + | [facility] | [address] | [place], [place] | | | [place] | [address] | [address] | | | TESTS | | | [...] [facility] | [address] | [place] [address] | | | SERVICES, NAY | [address] [...] + + | [facility] | [address] [facility] [address] | [place] [address] | | | SERVICES, CORE | PARK [...] | | | LABORATORY | | | PALESTINIAN | | | SERVICES, | | | [...] | + + + + + | [facility] | [address] [facility] | [place] [address] | | | SERVICES, CORE | [address] [...] | + + + + + | [facility] | [address] | [place] [address] | | | SERVICES, NAY | PARK [...] [facility] | [address] | [place], [place] | | | JOI POINT OF CARE | [address] | [address] | | | TESTS | | | [...] [facility]ET[facility] | [address] | [place], [place] | | | [facility] [facility] | [facility] | [address] | | | TESTS | | | [...] [facility] | [address] | [place], [place] | | | [place] | [facility] | [address] | | | TESTS | | | [...] | + + + + + | [facility] | [address] | [place] [address] | | | SERVICES, CORE | [address] | | | + + + + + MAGNESIUM, PLASMA (03/17/2013 6:59 AM PDT) + +-------+ + + + | Component | Value | Ref Range | Performed | Pathologist | | | | | At | Signature | + +-------+ + + + | MAGNESIUM,P | 2.0 | 1.8 - 2.5 mg/dL | [facility] | | | LASMA | | | [...] [facility] | [address] | [place] [address] | | | SERVICES, CORE | [address] [...] | | | LABORATORY | | | PALESTINIAN | | | SERVICES, | | | [...] [facility] | [address] | [place] [address] | | | PEARL, CORE | PARK [...] | + + + + + | [facility] | [address] | [place] [address] | | | SERVICESNAY | [address] [...] [facility] | [address] | [place], [place] | | | BABAR TAMEZ OF CARE | [address] | [address] | | | TESTS | | | [...] + + + | [facility] | [address] | [place], [place] | | | [place] | [address] | [address] | | | TESTS | | | [...] [facility] | [address] | [place], [place] | | | BABAR TAMEZ OF CARE | [address] | [address] | | | TESTS | | | [...] | + + + + + | [facility] | [address] | [place] [address] | | | PEARL, CORE | PARK [...] | + + + + + | [facility] | [address] [facility] | [place] [address] | | | SERVICES, CORE | [address] [...] | | | LABORATORY | | | PALESTINIAN | | | SERVICES, | | | [...] the MDRD equation recommended by the | [facility] | | National Kidney Disease Education Program. [...] | + + + + + | [facility] | [address] | [place] [address] | | | SERVICES, CORE | PARK [...] | + + + + + | [facility] | [address] | [place] [address] | | | NAY KANG | [address] [...] MARQU[facility] | [address] | [place], [place] | | | JOI POINT OF CARE | [address] | [address] | | | TESTS | | | [...] + + + | [facility] | [address] | [place], [place] | | | JOI POINT OF CARE | [address] | [address] | | | TESTS | | | [...] MARQUAM | [address] | [place], [place] | | | JOI POINT OF CARE | [address] | [address] | | | TESTS | | | [...] + | [facility] | [address] | [place], [place] | | | JOI POINT OF CARE | [address] | [address] | | | TESTS | | | [...] [facility] | [address] | [place], [place] | | | JOI POINT OF CARE | [address] | [address] | | | TESTS | | | [...] | + + + + + | [facility] | [address] | [place] [address] | | | NAY KANG | [address] | | | + + + + + OPERATION RECORD (03/15/2013 1:17 PM PDT) + + | Transcriptions | + + | Devin Gonzalez MD - 03/13/2013 2:30 PM PDT Date: 03/13/2013 | | | | Attending Surgeon: Steffen Rodríguez M.D. | | | | Lead Technician(s): Devin Gonzalez MD | | Ricky Alexander [...] He was told to follow up in [facility] for further care. | | [...] | | The patient was taken to [facility] number 6 and placed in the [...] | | PD / HS | | [id number] / [id number] / [id number] / | | | | | + [...] ELLIE | [address] | [place], [place] | | | [place] [facility] | [address] | [address] | | | TESTS | | | [...] | + + + + + | [facility] | [address] [facility] | [place] [address] | | | SERVICES, CORE | PARK [...] [facility] | [address] | [place] [address] | | | NAY KANG | [address] [...] | | | LABORATORY | | | PALESTINIAN | | | SERVICES, | | | [...] [facility] | [address] | [place] [address] | | | SERVICES, CORE | PARK [...] | + + + + + | [facility] | [address] | [place] [address] | | | SERVICES, CORE | [address] [...] (H) | 60 - 99 mg/dL | [facility] - | | | GLUCOSE, | | [...] [facility] | [address] | [place], [place] | | | BABAR TAME[facility] OF CARE | [address] | [address] | | | TESTS | | | [...] [facility] | [address] | [place], [place] | | | [facility] [place] OF CARE | [address] | [address] | | | TESTS | | | [...] ELLIE | [address] | [place], [place] | | | [place] [facility] | [address] | [address] | | | TESTS | | | [...] | + + + + + | [facility] | [address] [facility] | [place] [address] | | | SERVICES, CORE | PARK [...] [facility] | [address] | [place] [address] | | | NAY KANG | [address] [...] | | | LABORATORY | | | PALESTINIAN | | | SERVICES, | | | [...] | + + + + + | [facility] | [address] | [place] [address] | | | SERVICES, CORE | PARK [...] | + + + + + | [facility] | [address] | [place] [address] | | | SERVICES, CORE | GENNARO [...] (H) | 60 - 99 mg/dL | [facility] - | | | GLUCOSE, | | [...] ELLIE | [address] | [place], [place] | | | [place] | [facility] | [address] | | | TESTS | | | [...] [facility] | [address] | [place], [place] | | | BABAR TAMEZ OF CARE | [facility] | [address] | | | TESTS | | | [...] (H) | 60 - 99 mg/dL | [facility] - | | | GLUCOSE, | | [...] ELLIE | [address] | [place], [place] | | | JOI POINT OF CARE | [address] | [address] | | | TESTS | | | [...] ELLIE | [address] | [place], [place] | | | [place] | [facility] | [address] | | | TESTS | | | [...] | + + + + + | [facility] | [address] | [place] [address] | | | PEARL, NAY | [address] [...] MARQU[facility] | [address] | [place], [place] | | | [place] | [address] | [address] | | | TESTS | | | [...] ARGUETA | [address] | [place], [place] | | | JOI POINT [facility] | [address] | [address] | | | TESTS | | | [...] MARQU[facility] | [address] | [place], [place] | | | JOI POINT OF CARE | [address] | [address] | | | TESTS | | | [...] ELLIE | [address] | [place], [place] | | | BAB[place]AME[place] OF CARE | [address] | [address] | | | TESTS | | | [...] ARGUETA | [address] | [place], [place] | | | [place] | [address] | [address] | | | TESTS | | | [...] MARQU[facility] | [address] | [place], [place] | | | JOI POINT OF CARE | [address] | [address] | | | TESTS | | | [...] ARGUETA | [address] | [place], [place] | | | BAB[place] TAME[place] OF CARE | [address] | [address] | | | TESTS | | | [...] [facility] | [address] | [place], [place] | | | JOI POINT OF CARE | [address] | [address] | | | TESTS | | | [...] (H) | 60 - 99 mg/dL | [facility] - | | | GLUCOSE, | | [...] + + + | [facility] | [address] | [place], [place] | | | [facility] [facility] | [address] | [address] | | | TESTS | | | [...] | + + + + + | [facility] | [address] | [place] [address] | | | SERVICES, CORE | GENNARO [...] ARGUETA | [address] | [place], [place] | | | [place] | [address] | [address] | | | TESTS | | | [...] opened | | | | | | atmtck.Cystic node: | | | | | | AbsentWall | | | | | | thickness: 0.1 | | | | | | cmSerosa: | | | | | | Cole-duncan with | | | | | | [...] | | | | | | and public health representative | | | | | | [...] | + + + + + | [facility] | [address] | [place] [address] | | | PATHOLOGY | [address] [...] ELLIE | [address] | [place], [place] | | | [place] | [address] | [address] | | | TESTS | | | [...] [facility] | [address] | [place], [place] | | | [place] | [facility] | [address] | | | TESTS | | | [...] (H) | 60 - 99 mg/dL | [facility] - | | | GLUCOSE, | | [...] ARGUETA | [address] | [place], [place] | | | JOI POINT OF CARE | [address] | [address] | | | TESTS | | | [...] | + + + + + | [facility] | [address] | [place] [address] | | | SERVICES, CORE [...] (H) | 60 - 99 mg/dL | [facility] - | | | GLUCOSE, | | [...] AR[facility]ET[facility] | [address] | [place], [place] | | | [place] | [facility] | [address] | | | TESTS | | | [...] MARQU[facility] | [address] | [place], [place] | | | BABAR TAMEZ OF CARE | [facility] | [address] | | | TESTS | | | [...] (H) | 60 - 99 mg/dL | [facility] - | | | GLUCOSE, | | [...] [facility] | [address] | [place], [place] | | | JOI POINT OF CARE | [address] | [address] | | | TESTS | | | [...] ARGUETA | [address] | [place], [place] | | | [place] | [facility] | [address] | | | TESTS | | | [...] | + + + + + | [facility] | [address] [facility] | [place] [address] | | | SERVICES, NAY | [address] [...] MAR[facility] | [address] | [place], [place] | | | JOI POINT OF CARE | [address] | [address] | | | TESTS | | | [...] | + +---------+ + + | [facility] DEPARTMENT OF | | | | | [...] [facility] | [address] | [place] [address] | | | SERVICES, | [address] [...] | + + + + + | [facility] | [address] | [place] [address] | | | SERVICES, | [address] [...] [facility] | [address] | [place] [address] | | | SERVICES, NAY | [address] [...] | + + + + + | [facility] | [address] | [place] [address] | | | SERVICES, CORE | PARK [...] | + + + + + | [employer] | [address] | [place] [address] | | | SERVICES, CORE | [address] [...] | + + + + + | [facility] | [address] | [place] [address] | | | SERVICES, CORE | [address]AR[address] [...] | + + + + + | [facility] | [address] | [place] [address] | | | SERVICES, NAY | [address] [...] [facility] | [address] | [place] [address] | | | SERVICES, CORE | PARK [...] | + + + + + | [facility] | [address] | [place] [address] | | | SERVICES, CORE | [address] [...] | | | LABORATORY | | | PALESTINIAN | | | SERVICES, | | | [...] | + + + + + | [facility] | [address] | [place] [address] | | | SERVICES, [facility] | [address] | [...] [facility] | [address] | [place], [place] | | | JOI POINT OF CARE | [address] | [address] | | | TESTS | | | [...] | | | | | | YANA STROY (171) on | | | | | | 03/10/2013 7:22:13 PM | | | | + + + + + + + + | Specimen | + + | | + + + + + | Narrative | Performed At | + + + | Please click | [facility] | | on view image for the detailed interpretation from [employer] results. | CARDIOLOGY | + + + + + | Procedure Note | + + | Interface, Cardiology Results - 03/10/2013 7:22 PM PDT Please click on view image | | for the detailed interpretation from [employer] results. | + + + + + + + | Performing | Address | City/State/Zipcode | Phone Number | | Organization | | | | + + + + + | [facility] | [address] | [place], [place] | | | CARDIOLOGY | [address] | [address] | | + + + + + [...]
--- OUTSIDE RECORDS SUMMARY | ~2019-08-03 | XMS | Encounter Summary ---
Demographics + + + | Address | [address] [place] | | | [place] [address] | + + + | Home Phone [...] Team Providers + +------+ + | Care Mosaic Tiler Name | Role | Phone | + [...] | | 2013 | | Center at [facility] [address] | MD | | | | | [address] Myrick | | | | | | Mailcode: Dorado | | | | | | [facility] Health and | | | | | | [facility] [address] | | | | | | [place], [place] | | | | | | [address] | | | | | | [phone] | | | +--------+ + + + [...]
--- OUTSIDE RECORDS SUMMARY | ~2019-08-03 | XMS | Encounter Summary ---
Demographics + + + | Address | [address] | | | [place] [address] | + + + | Home Phone [...] | Author | [facility] | + + + | Organization | [facility] | + + + | Address | [...] Team Providers + +------+ + | Care Mannequin Coloring Artist Name | Role | Phone | [...] | 2012 | Event | [address] [place] | R, BUSINESS MAIL ENTRY CLERK [address] | | | | | [address] [facility] | [facility] [address] | | | | | Hospital Admitting | [place], [place] | | | | | Desk Located on the | [address] | | | | | 9th floor | [phone] | | | | | [place], [place] | | | | | | [address] | | | +--------+ + + + [...] | | | Royal Walker MD at [facility] | | | | | [...]
--- OUTSIDE RECORDS SUMMARY | ~2019-08-03 | XMS | Encounter Summary ---
Demographics + + + | Address | [address] | | | [place] [address] | + + + | Home Phone [...] Providers + +------+ + | Care Mail List Librarian Name | Role | Phone | + [...] admission, | | 2011 | | [address] | [address] | transfer from other | | | | [address] | [facility] | [facility] | | | | Mailcode: [id number] | [place], [place] | care facility | | | | [facility] | [address] | | | | | [place], [place] | [phone] | | | | | [address] | | | | | | [phone] | | | +--------+ + + + [...]
--- OUTSIDE RECORDS SUMMARY | ~2019-08-03 | XMS | Encounter Summary ---
Demographics + + + | Address | [address] | | | [place] [address] | + + + | Home Phone [...] Providers + +------+ + | Care Test Grader Name | Role | Phone | + +------+ + | Gracie Mariano MD | PCP | | + +------+ + Encounter Details +--------+ + + + + | Date | Type | Department | Care Team | Description | +--------+ + + + + | 03/02/ | Hospital | Cardiac | Price[facility], Neftaly Ecg Tech | | | 2012 | Encounter | Non-Invasive Testing | [address] | | | | | at [address] | [facility] | | | | | [address] | [place] [address] | | | | | Loop Mailcode: | | | | | | [id number] | | | | | | [facility] | | | | | | [place], [place] | | | | | | [address] | | | | | | [phone] | | | +--------+ + + + [...] [facility]ABTREE | | | | | | ([id number]) on 03/04/2013 | | | | | | 7:58:54 AM | | | | + + + + + + + + | Specimen | + + | | + + + + + | Narrative | Performed At | + + + | Please click | [facility] | | on view image for the detailed interpretation from [facility] results. | CARDIOLOGY | + + + + + | Procedure Note | + + | Interface, Cardiology Results - 03/04/2013 8:00 AM PDT Please click on view image | | for the detailed interpretation from [facility] results. | + + + + + + + | Performing | Address | City/State/Zipcode | Phone Number | | Organization | | | | + + + + + | [facility] | [address] | [place], [place] | | | CARDIOLOGY | [address] | [address] | | + + + + + documented in this encounter Visit Diagnoses Not on filedocumented in this encounter"
--- OUTSIDE RECORDS SUMMARY | ~2019-08-03 | XMS | Encounter Summary ---
Demographics + + + | Address | [address] | | | [place] [address] | + + + | Home Phone [...] Team Providers + +------+ + | Care Typesetter Perforator Operator Name | Role | Phone | [...] | | | | Provider Per | [address] | | | | | | Patient NO | Wilfrido Hernandez | | | | | | REFERRING | Joseph Mchugh, | | | | | | PROVIDER PER | [place] | | | | | | [place] | [address] | | | | | | | Phone: | | | | | | | [phone] | | | | | | | Fax: | | | | | | | [phone] | +--------+--------+ + + + + Encounter [...] | | [address] | [address] | ERRONEOUS ENCOUNTER | | | | Mailcode: PV430 | [place], [place] | - NO DIAGNOSIS | | | | [facility] | [address] | | | | | [place], [place] | [phone] | | | | | [address] | | | | | | [phone] | | | +--------+---------+ + + + [...]
--- OUTSIDE RECORDS SUMMARY | ~2019-08-03 | XMS | Encounter Summary ---
Demographics + + + | Address | [address] | | | [place] [address] | + + + | Home Phone [...] Team Providers + +------+ + | Care Informatics Manager Name | Role | Phone | + +------+ + | Kita Schafer MD | PCP | | + +------+ + Encounter Details +--------+ + + + + | Date | Type | Department | Care Team | Description | +--------+ + + + + | 04// | Oil Operator | Orthopaedics at | Jorge Walker MD | Osteoarthrosis, hip | | 2010 | | [facility] [address] | [address] | (Primary Dx) | | | | [address] | [address] | | | | | Mailcode: PV430 | [place], [place] | | | | | [facility] | [address] | | | | | [place], [place] | [phone] | | | | | [address] | | | | | | [phone] | | | +--------+ + + + [...]
--- OUTSIDE RECORDS SUMMARY | ~2019-08-03 | XMS | Encounter Summary ---
Demographics + + + | Address | [address] | | | [place] [address] | + + + | Home Phone [...] Providers + +------+ + | Care Restaurant Floor Manager Name | Role | Phone | [...] [address] | | | | | | ([facility]) | [address] | | | | | | Procedures | [address] | | | | | | PHYSICAL | Rd | | | | | | THERAPY | [place], [place] | | | | | | REFERRAL | [address] | | +--------+--------+ + + + + [...] | | | | [address] | [facility] | | | | | Mailcode: PV430 | [place], [place] | | | | | [facility] | [address] | | | | | [place], [place] | [phone] | | | | | [address] | | | | | | [phone] | | | +--------+ + + + [...]
--- OUTSIDE RECORDS SUMMARY | ~2019-08-03 | XMS | Encounter Summary ---
Demographics + + + | Address | [address] | | | [place] [address] | + + + | Home Phone | | + + + | Preferred Language | Unknown | + + + | Marital Status | Single | + + + | Judaism Affiliation | BAP | + + + [...] Providers + +------+ + | Care Railway Switchman Name | Role | Phone | [...] | | | | Ave Mailcode: | [place], [place] | | | | | [facility] | [address] | | | | | and Zack, | [phone] | | | | | [place] [address] | | | | | | [place], [place] | | | | | | [address] | | | | | | [phone] | | | +--------+ + + + [...]
--- OUTSIDE RECORDS SUMMARY | ~2019-08-03 | XMS | Encounter Summary ---
Demographics + + + | Address | [address] | | | [place] [address] | + + + | Home Phone [...] Providers + +------+ + | Care Dairy Farmworker Name | Role | Phone | [...] 02/01/ | Documentati | [facility] | Lab, Gi Procedure | Medical Records | | 2011 | on | [address] | | Review | | | | [address] Mailcode: | | | | | | OC2L [facility] | | | | | | Health and Healing, | | | | | | Building [address] | | | | | | [place], [place] | | | | | | [address] | | | | | | [phone] | | | +--------+ + + + [...]
--- OUTSIDE RECORDS SUMMARY | ~2019-08-03 | XMS | Encounter Summary ---
Demographics + + + | Address | [address] | | | [place] [address] | + + + | Home Phone [...] Team Providers + +------+ + | Care Conservation Specialist Name | Role | Phone | [...] | spondylitis (HCC); | | | | [place], [place] | | Osteoarthrosis, hip | | | | [address] | | | | | | [phone] | | | +--------+---------+ + + + [...] surgeries scheduled to take place on the [place] at the [facility]: Surgeries scheduled in the [facility] ( [facility]): registration is located on the 4th floor of [facility] (Day Surgery). Surgeries scheduled in the [facility]: registration is located on the 9th floor. Surgeries scheduled in [facility]: registration is located on the 6th floor. Surgeries scheduled in the [facility]: registration is located i n the [facility] on the first floor. For surgeries scheduled to take place at the [facility]: registration is l [...] If you use specialized medical equipment at [facility], please check with your provider before [...] surgeries scheduled to take place on the [place] at the [facility]: Surgeries scheduled in the [facility] ( North): registration is located on the 4th floor of [facility] (Day Surgery). Surgeries scheduled in the [facility]: registration is located on the 9th floor. Surgeries scheduled in [facility]: registration is located on the 6th floor. Surgeries scheduled in the [facility]: registration is located i n the [facility] on the first floor. For surgeries scheduled to take place at the [facility]: registration is l [...] If you use specialized medical equipment at [facility], please check with your provider before [...] by ALLEGRA Pulliam. ROSA M SMART MD [facility] [address] [place] [address] Mailcode: Pv430 [place] [address] Jan Leal PA-C - 08/22/2009 10:51 AM [...] RLB | | | ([address]) [facility] [address] | | | [place] [address] | | + + + + + + + + | Performing | Address | City/State/Zipcode | Phone Number | | Organization | | | | + + + + + | [facility] | [address] | [place] [address] | | | LABORATORY | | | [...] [facility] DEPARTMENT OF | [address] | [place] [address] | | | PATHOLOGY | [address] [...] | | | DEPARTMENT | | | [place] | | | OF | | | [...] [facility] | [address] | [place] [address] | | | PATHOLOGY | [address] [...] [facility] | [address] | [place] [address] | | | PATHOLOGY | [address] [...]
--- OUTSIDE RECORDS SUMMARY | ~2019-08-03 | XMS | Encounter Summary ---
Demographics + + + | Address | [address] | | | [place] [address] | + + + | Home Phone [...] Team Providers + +------+ + | Care Commissary Production Supervisor Name | Role | Phone | [...] | | | | | [address], | | | | | | [place] [address] | | | | | | [phone] | | | +--------+ + + + [...]
--- OUTSIDE RECORDS SUMMARY | ~2019-08-03 | XMS | Encounter Summary ---
Demographics + + + | Address | [address] | | | [place] [address] | + + + | Home Phone [...] Team Providers + +------+ + | Care Dehairer Name | Role | Phone | + [...] Pavilion | | | | | | [place], [place] | | | | | | [address] | | | | | | [phone] | | | +--------+---------+ + + + [...] two times daily. Apply to affected a girsel for 7 consecutive days. GLIPIZIDE 5 MG [...]
--- OUTSIDE RECORDS SUMMARY | ~2019-08-03 | XMS | Encounter Summary ---
Demographics + + + | Address | [address] | | | [place] [address] | + + + | Home Phone [...] Team Providers + +------+ + | Care Nail Feeder Name | Role | Phone | + +------+ + | Gracie Mariano MD | PCP | | + +------+ + Encounter Details +--------+ + + + + | Date | Type | Department | Care Team | Description | +--------+ + + + + | 06/22/ | Telephone | Digestive Health | Harinder Felton, | | | 2012 | | [place] at [facility] [address] | [address] | | | | | [address] | [place] [address] | | | | | Mailcode: Center | [phone] | | | | | for Health and | | | | | | [facility] [address] | | | | | | [place], [place] | | | | | | [address] | | | | | | [phone] | | | +--------+ + + + [...]
--- OUTSIDE RECORDS SUMMARY | ~2019-08-03 | XMS | Encounter Summary ---
Demographics + + + | Address | [address] | | | [place] [address] | + + + | Home Phone [...] Team Providers + +------+ + | Care Cosmetic Dentist Name | Role | Phone | + [...] Anna | | | | | [facility] | [place] [facility] | | | | | Hospital Admitting | [place] [address] | | | | | Desk Located on the | [phone] | | | | | 9th floor | | | | | | [place], [place] | Karyna Reina MD | | | | | [address] | [address] | | | | | | Mary [place] | | | | | | [place] [address] | | | | | | [phone] | | | | | | | [...] | Periph | 3006--contact admin for | SPREADER BOX OPERATOR | Discharge | | eral | [...]
--- OUTSIDE RECORDS SUMMARY | ~2019-08-03 | XMS | Encounter Summary ---
Demographics + + + | Address | [address] | | | [place] [address] | + + + | Home Phone [...] Team Providers + +------+ + | Care Asphalt Plant Operator Name | Role | Phone | [...] | Heterotopic | [address] | [address] [place], | | | | | ossification | [place], [place] | [place] | | | | | of bone | [address] | [address] | | | | | Right | Phone: | Phone: | | | | | shoulder | [phone] | [phone] | | | | | pain Rt | Fax: | Fax: | | | | | shoulder | [phone] | [phone] | | | | | Procedures | [...] pain, | | 2016 | Visit | [facility] [address] | [address] | unspecified | | | | Ave Mailcode: CH12A | [place], [place] | chronicity (Primary | | | | 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 He sees Dr. Mcclure at [facility] documented in this encou nter Plan of [...]
--- OUTSIDE RECORDS SUMMARY | ~2019-08-03 | XMS | Encounter Summary ---
Demographics + + + | Address | [address] | | | [place] [address] | + + + | Home Phone [...] Team Providers + +------+ + | Care Grade Recorder Name | Role | Phone | + [...] Rd | | | | | | [place], [place] | | | | | | [address] | | | +--------+ + + + [...]
--- OUTSIDE RECORDS SUMMARY | ~2019-08-03 | XMS | Encounter Summary ---
Demographics + + + | Address | [address] | | | [place] [address] | + + + | Home Phone [...] + +------+ + | Care Director Of Bands Name | Role | Phone | + [...] | | | [address] | [place] [address] | | | | | [address] | [phone] | | | | | Mailcode: UHN83 | | | | | | Bianca Garnett | | | | | | [address] [place], [place] | | | | | | [address] | | | | | | [phone] | | | +--------+ + + + [...]
--- OUTSIDE RECORDS SUMMARY | ~2019-08-03 | XMS | Encounter Summary ---
Demographics + + + | Address | [address] | | | [place] [address] | + + + | Home Phone [...] Team Providers + +------+ + | Care Demonstrator Sales Name | Role | Phone | [...] Ave | | | | | | [place], [place] | Mailcode: | | | | | transaminase | [address] | [facility] | | | | | or lactic | | for Health | | | | | acid | | and Healing, | | | | | dehydrogenas | | Building 1, | | | | | e ([facility]) | | 3rd Floor | | | | | Procedures | | [place], [place] | | | | | [place] | | [address] | | | | | LIMITED | | Phone: | | | | | | | [phone] | | | | | | | Fax: | | | | | | | [phone] | +--------+--------+ + + + + Encounter [...] | | | | | | Pavilion [place], | | | | | | [place] [address] | | | | | | [phone] | | | +--------+ + + + [...]
--- OUTSIDE RECORDS SUMMARY | ~2019-08-03 | XMS | Encounter Summary ---
Demographics + + + | Address | [address] | | | [place] [address] | + + + | Home Phone [...] Team Providers + +------+ + | Care Fashion Merchandiser Name | Role | Phone | + +------+ + | Kita Schafer MD | PCP | | + +------+ + Encounter Details +--------+ + + + + | Date | Type | Department | Care Team | Description | +--------+ + + + + | 03/11/ | Documentati | Hematology/Medical | [place], | | | 2010 | on | Oncology at [facility] | MD Jorge [address] | | | | | [address] | [address] [place], | | | | | Mailcode: CH7M | [place] [address] | | | | | [facility] | [phone] | | | | | and Healing, | | | | | | [facility] | | | | | | [place], [place] | | | | | | [address] | | | | | | [phone] | | | +--------+ + + + [...]
--- OUTSIDE RECORDS SUMMARY | ~2019-08-03 | XMS | Encounter Summary ---
Demographics + + + | Address | [address] | | | [place] [address] | + + + | Home Phone | | + + + | Preferred Language | Unknown | + + + | Marital Status | Single | + + + | Caodaism Affiliation | 1041 | + + + | Race | Unknown | + + + | Ethnic Group | Unknown | + + + Author + + + | Author | [facility] | | | and [place] | + + + | Organization | [facility] | | | and [...] Team Providers + +------+ + | Care It Compliance Manager Name | Role | Phone | + +------+ + PCP | Unavailable | + +------+ + Encounter Details +--------+ + + + + | Date | Type | Department | Care Team | Description | +--------+ + + + + | 02/26/ | Hospital | [facility] | Conversion | S/P cervical spinal | | 2017 | Encounter | [facility]ICAL CENTER XRAY | Transaction, | fusion | | | | [address] | Provider Unknown | | | | | [place], [place] | [phone] | | | | | [address] | | | | | | [phone] | Lehardi, Kairul S, | | | | | | PHARMACY SERVICE ASSOCIATE [address] [place] [address] | | | | | | [address] [place], | | | | | | [place] [address] | | | | | | [phone] | | | | | | | [...] | | | | | [place] [address] | | | | | | [phone] | | | | | | | | +--------+---------+ + + + | 11/26/ | Office | Cardiology | Sissy Noyola | | | 2019 | Visit | | MD Marisol [address] | | | | | | [place] | | | | | | [address] | | | | | | | [...]
--- OUTSIDE RECORDS SUMMARY | ~2019-08-03 | XMS | Encounter Summary ---
Demographics + + + | Address | [address] | | | [place] [address] | + + + | Home Phone | | + + + | Preferred Language | Unknown | + + + | Marital Status | Single | + + + | Voodoo Affiliation | 1041 | + + + | Race | Unknown | + + + | Ethnic Group | Unknown | + + + Author + + + | Author | [facility] | | | and [place] | + + + | Organization | [facility] [...] Providers + +------+ + | Care Radiological Technician Name | Role | Phone | [...] | | | | RAYMOND SCHMITT | [facility] | | | | | [place], [place] | [place] [address] | | | | | [address] | [phone] | | | | | [phone] | | | +--------+ + + + [...] | | | | | [place] [address] | | | | | | [phone] | | | | | | | | +--------+---------+ + + + | 11/26/ | Office | Cardiology | Sissy Noyola | | | 2020 | Visit | | MD Sushil Damon | | | | | | [place] | | | | | | [address] | | | | | | | | +--------+---------+ + + + documented as of this encounter Visit Diagnoses Not on filedocumented in this encounter"
--- OUTSIDE RECORDS SUMMARY | ~2019-08-03 | XMS | Encounter Summary ---
Demographics + + + | Address | [address] | | | [place] [address] | + + + | Home Phone [...] Team Providers + +------+ + | Care Deputy Bailiff Name | Role | Phone | + [...] Anna | | | | | [facility] | [address] [facility] | | | | | [facility] | [place] [address] | | | | | Desk Located on the | | | | | | 9th floor | | | | | | [place], [place] | | | | | | [address] | | | +--------+ + + + [...] | | | W MD Denise at [facility] | | | | | [address] [...]
--- OUTSIDE RECORDS SUMMARY | ~2019-08-03 | XMS | Encounter Summary ---
Demographics + + + | Address | [address] | | | [place] [address] | + + + | Home Phone [...] Team Providers + +------+ + | Care Manufacturing Process Engineer Name | Role | Phone | + +------+ + | Gracie Mariano MD | PCP | | + +------+ + Encounter Details +--------+ + + + + | Date | Type | Department | Care Team | Description | +--------+ + + + + | 11/10/ | Hospital | Radiology/Imaging | | Canceled (Scheduling | | 2015 | Encounter | Lab at [facility] [address] | | error) | | | | [address] Mailcode: | | | | | | CH3G [facility] | | | | | | Health and Healing, | | | | | | [place] [address] [facility] | | | | | | [place], [place] | | | | | | [address] | | | | | | [phone] | | | +--------+ + + + [...] | | + +---------+ + + | [facility] DEPARTMENT OF | | | | | RADIOLOGY | | | | + +---------+ + + documented in this encounter Visit Diagnoses + + | Diagnosis | + + | Right shoulder pain, unspecified chronicity | + + documented in this encounter"
--- OUTSIDE RECORDS SUMMARY | ~2019-08-03 | XMS | Encounter Summary ---
Demographics + + + | Address | [address] | | | [place] [address] | + + + | Home Phone [...] Author + + + | Author | [facility] | + + + | Organization | [facility] | + + + | Address [...] Team Providers + +------+ + | Care Used Car Manager Name | Role | Phone | [...] | | unspecified | [address] | [facility] Center | | | | | whether | [place], [place] | [facility] Health | | | | | generalized | [address] | and Healing, | | | | | or | Phone: | Building [address], | | | | | localized, | [phone] | [address] Floor | | | | | pelvic | Fax: | [place], [place] | | | | | region and | [phone] | [address] | | | | | thigh | | Phone: | | | | | Procedures | | [phone] | | | | | PHYSICAL | | Fax: | | | | | THERAPY | | [phone] | | | | | REFERRAL | [...] | (Primary Dx) | | | | [facility] | [place] [address] | | | | | [address] | [phone] | | | | | Mailcode: CH3P | | | | | | [facility] | | | | | | and Healing, | | | | | | [facility] 1, [facility] | | | | | | Floor [place], [place] | | | | | | [address] | | | | | | [phone] | | | +--------+---------+ + + + [...] Jasmin Claudio - 03/02/2013 9:10 AM PDT [id number] JORGE L CISNEROS Date of : 1950 [...] after this hip surgery. Pt lives in [place]. Functional limitations Unable to walk without bilat [...] Frequency/Duration: 1x/week x12 weeks. Pt lives in [place] and has a PT there. Treatment began: 1244 Treatment ended: 1314 This note is to serve as the discharge summary if Jorge L Cisneros fails to attend further Phys ical Therapy appointments or contact the therapist regarding any change in their status. JASMIN CLAUDIO [facility] AND HAND [facility]ERAP[facility] [address] Mailcode: [address] [address] Payment Authorization Request and Status Report: [facility] Outpatient Therapy Center Contact Contact Billing Provider Number: [id number] Therapist Provider Number: [id number] Referring Prescribing Practitioner: Jorge Walker MD Primary Diagnosis/ICD-9: 1. Osteoarthrosis, hip Prescribing Practitioner Provider Number: [facility] Physician [id number]. Outside [facility] Physician: _ Proposed PA Start Date: Date PA is approved. Procedure Codes: Brief Evaluation 06121 Modalities Codes: None Minutes per session: 45 [...]
--- OUTSIDE RECORDS SUMMARY | ~2019-08-03 | XMS | Encounter Summary ---
Demographics + + + | Address | [address] | | | [place] [address] | + + + | Home Phone [...] Team Providers + +------+ + | Care Jai Alai Player Name | Role | Phone | + [...] | | at [address] Cisneros | [facility] | | | | | [address] | [place] [address] | | | | | Loop Mailcode: | | | | | | [id number] | | | | | | [facility] | | | | | | [place], [place] | | | | | | [address] | | | | | | [phone] | | | +--------+ + + + [...] | + + + + + | [facility] DEPARTMENT OF | [address] | [place] [address] | | | PATHOLOGY | [address] | | | + + + + + documented in this encounter Visit Diagnoses Not on filedocumented in this encounter"
--- OUTSIDE RECORDS SUMMARY | ~2019-08-03 | XMS | Encounter Summary ---
Demographics + + + | Address | [address] | | | [place] [address] | + + + | Home Phone [...] Providers + +------+ + | Care Machine Stapler Name | Role | Phone | + [...] | | | | Provider Per | [address] | | | | | | Patient NO | [address] | | | | | | REFERRING | [place], | | | | | | PROVIDER PER | [place] | | | | | | PT | [address] | | | | | | | Phone: | | | | | | | [phone] | | | | | | | Fax: | | | | | | | [phone] | +--------+--------+ + + + + Encounter [...] | | | | Mailcode: PV430 | [place], [place] | - NO DIAGNOSIS | | | | [facility] | [address] | | | | | [place], [place] | [phone] | | | | | [address] | | | | | | [phone] | | | +--------+---------+ + + + [...]
--- OUTSIDE RECORDS SUMMARY | ~2019-08-03 | XMS | Encounter Summary ---
Demographics + + + | Address | [address] | | | [place] [address] | + + + | Home Phone [...] Team Providers + +------+ + | Care Aviation Survival Technician Name | Role | Phone | [...] | | | | [address] | [facility] | [facility] | | | | Mailcode: PV430 | [place], [place] | care facility | | | | [facility] | [address] | | | | | [place], [place] | [phone] | | | | | [address] | | | | | | [phone] | | | +--------+ + + + [...]
--- OUTSIDE RECORDS SUMMARY | ~2019-08-03 | XMS | Encounter Summary ---
Demographics + + + | Address | [address] | | | [place] [address] | + + + | Home Phone [...] Providers + +------+ + | Care Machine Staker Name | Role | Phone | + +------+ + | Scooby Mcclure MD | PCP | | + +------+ + Encounter Details +--------+ + + + + | Date | Type | Department | Care Team | Description | +--------+ + + + + | 04/06/ | Hospital | Radiology/Imaging | Arline Paige, | | | 2018 | Encounter | Lab at [facility] [address] | [place] [address] | | | | | [address] Mailcode: | [place], [place] | | | | | [facility] | [address] | | | | | and Zack, | [phone] | | | | | [facility] | | | | | | Floor [place], [place] | | | | | | [address] | | | | | | [phone] | | | +--------+ + + + [...]
--- OUTSIDE RECORDS SUMMARY | ~2019-08-03 | XMS | Clinical Summary ---
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 | 02/20/2019 | [...] May | | | | | | [address] | | | | | | | [...] | 10/22/ | 8103.0 | | - [id number]: Qty: 1 | | | MEDICAL - | | 2019 | 210S / | | on 01/09/2017 by Kadi, | | | GLBU | | | | | Mendez Nicole MD | | | | | | /[id number] | | | | | | | | [id number] | + +------+------+ +--------+--------+--------+ | Quartex Lordotic [...] GLOBUS | | | 8115.0 | | [id number] - SnaImplanted: | | | MEDICAL - [...] | | 10/05/ | 8115.0 | | [id number] | | | MEDICAL - | | 2019 | 120S / | | [id number]: Qty: 1 on | | | GLBU | | | | | 01/09/2017 by Kadi, | | | | | | /[id number] | | Mendez Nicole MD | | | | | | 4CG | + +------+------+ +--------+--------+--------+ | Graft Duragen 1x1in - | | | INTEGRA | | / | ID-110 | | [id number]: Qty: 1 on | | | LIFESCIENCE | | 2020 | 1 / | | 01/09/2017 by Kadi, | | | S YOLANDA - | | | /[id number] | | Mendez Nicole MD | | [...] +------+-------+ + | MEDICARE | MEDICA | [id number] | | | [address] | | | RE | | | | [place] [address] | | | IP-OP | | | | | + +--------+ +------+-------+ + | MEDICAID | MEDICA | [id number] | | | [address] | | | ID | | | | [place] | | | [place] | | | | [address] | + +--------+ +------+-------+ + | [facility] | YELLOW | [id number] | | | | | PLANS | [...] Self | [birth year] | Home: | [address] | | | al/Fam | | 1 | [phone] | [place] [address] | | | blaire | | | [phone] | | + +--------+ +--------+ + +
--- OUTSIDE RECORDS SUMMARY | ~2019-08-03 | XMS | Encounter Summary ---
Demographics + + + | Address | [address] | | | [place] [address] | + + + | Home Phone [...] Team Providers + +------+ + | Care Acid Extractor Name | Role | Phone | + [...] | | 2012 | | Center at [facility] [address] | [address] | Review (Immunization | | | | MARYLOU Myrick | [place] [address] | record ) | | | | Mailcode: Center | [phone] | | | | | [facility] and | | | | | | [facility], [facility] [address] | | | | | | [place], [place] | | | | | | [address] | | | | | | [phone] | | | +--------+ + + + [...]
--- OUTSIDE RECORDS SUMMARY | ~2019-08-03 | XMS | Encounter Summary ---
Demographics + + + | Address | [address] | | | [place] [address] | + + + | Home Phone [...] Providers + +------+ + | Care Dry Chain Worker Name | Role | Phone | [...] | | | [address] | [place] [address] | | | | | [address] Morgan | [phone] | | | | | Mailcode: UHN83 | | | | | | Bianca Garnett | | | | | | [address] [place], [place] | | | | | | [address] | | | | | | [phone] | | | +--------+ + + + [...]
--- OUTSIDE RECORDS SUMMARY | ~2019-08-03 | XMS | Encounter Summary ---
Demographics + + + | Address | [address] | | | [place] [address] | + + + | Home Phone [...] Providers + +------+ + | Care Lead Portfolio Manager Name | Role | Phone | [...] | | | | | | [place] [address] | [facility] | | | | | | Phone: | [address] | | | | | | [phone] | [place], [place] | | | | | | Fax: | [address] | | | | | | [phone] | Phone: | | | | | | | [phone] | | | | | | | Fax: | | | | | | | [phone] | +--------+--------+ + + + + Encounter [...] | | | | [address] | [place], [place] | | | | | Mailcode: L223A | [address] | | | | | [facility] | [phone] | | | | | [address] [place], [place] | | | | | | [address] | | | | | | [phone] | | | +--------+---------+ + + + [...] planning of care. Mr. Cisneros presents to [facility] after recent discharge from the inpatient setting in [place]. He had worsening upp er abdominal pain. [...] risks, and benefits. Deandre Austin MD FACS supervisor case loading Division of Trauma, Critical Care, and Acute Care Surgery [phone] Devin Coon MD - 03/10/2013 3:41 PM PDT [facility] EMERGENCY GENERAL SURGERY HISTORY AND PHYSICAL NOTE Patient: Jorge L Cisneros Author: DEVIN GONZALEZ MD Attending Physician: Deandre Austin MD Date of Admission: 03/10/2013 CC: RUQ pain HISTORY OF PRESENT ILLNESS/ INTERVAL UPDATE: Jorge L Cisneros is a 62 y.o. male chronically anticoagulated for antiphospholipid antibody syn drome (hx CVA, RLE DVT), recently discharged from [facility] ([place], [place]) for ac hudson cholecystitis. On 03/06 had sudden onset epigastric pain and self-presented to the hospit al. Gallbladder US showed gallstones and possible acute cholecystitis. The patient eventuall y improved and was discharged for evaluation at [facility] EGS clinic. Prior abdominal surgery inc ludes [...] Daughter lives next door to him. Registered hoopa member of the [facility]. MEDICATIONS: (Not in a hospital admission) [...] GONZALEZ MD PGY5 TRAUMA EMERGENCY GENERAL SURGERY [facility] Mailcode: [address] [place] [address] This assessment and plan was [...]
--- OUTSIDE RECORDS SUMMARY | ~2019-08-03 | XMS | Encounter Summary ---
Demographics + + + | Address | [address] | | | [place] [address] | + + + | Home Phone | | + + + | Preferred Language | Unknown | + + + | Marital Status | Single | + + + | Moravian Affiliation | 1041 | + + + | Race | Unknown | + + + | Ethnic Group | Unknown | + + + Author + + + | Author | [facility] | | | and Zekeana | + + + | Organization | [facility] | | | and [...] Providers + +------+ + | Care Chief Procurement Officer Name | Role | Phone | + +------+ + PCP | Unavailable | + +------+ + Encounter Details +--------+ + + + + | Date | Type | Department | Care Team | Description | +--------+ + + + + | 08/31/ | Hospital | [facility] | | | | 2007 - | Encounter | MED CTR DIETARY | | | | | | [address] | | | | 09/22/ | | [place] [address] | | | | 2007 | | [phone] | | | +--------+ + + + [...] D | | | | | | [place] [address] | | | | | | [phone] | | | | | | | | +--------+---------+ + + + | 11/26/ | Office | Cardiology | Sissy Noyola | | | 2020 | Visit | | MD Marisol [address] | | | | | | [place] | | | | | | [address] | | | | | | | | +--------+---------+ + + + documented as of this encounter Visit Diagnoses Not on filedocumented in this encounter"
--- OUTSIDE RECORDS SUMMARY | ~2019-08-03 | XMS | Encounter Summary ---
Demographics + + + | Address | [address] | | | [place] [address] | + + + | Home Phone [...] Team Providers + +------+ + | Care Moderate Needs Teacher Name | Role | Phone | [...] | Treatment Planning | | | | [place] | [facility] [place], | Note | | | | [id number] [facility] | [place] [address] | | | | | [facility], | [phone] | | | | | [place] [address] | | | | | | [phone] | | | +--------+ + + + [...]
--- OUTSIDE RECORDS SUMMARY | ~2019-08-03 | XMS | Encounter Summary ---
Demographics + + + | Address | [address] | | | [place] [address] | + + + | Home Phone [...] Providers + +------+ + | Care Engine Monitor Name | Role | Phone | + [...] | | 2013 | | Center at [facility] [address] | MD [address] | (Scheduling ) | | | | MARYLOU Myrick | [place] [address] | | | | | Mailcode: Center | [phone] | | | | | for Health and | | | | | | [facility], [facility] 2 | | | | | | [place], [place] | | | | | | [address] | | | | | | [phone] | | | +--------+ + + + [...]
--- OUTSIDE RECORDS SUMMARY | ~2019-08-03 | XMS | Encounter Summary ---
Demographics + + + | Address | [address] | | | [place] [address] | + + + | Home Phone [...] Team Providers + +------+ + | Care Ribber Name | Role | Phone | + [...] | | at Taj Wilfrido Cisneros | [facility] | | | | | [address] | [place] [address] | | | | | Loop Mailcode: | | | | | | [address] | | | | | | [facility] | | | | | | [place], [place] | | | | | | [address] | | | | | | [phone] | | | +--------+ + + + [...] CRABTREE | | | | | | (8457) on 03/04/2013 | | | | | | 7:58:54 AM | | | | + + + + + + + + | Specimen | + + | | + + + + + | Narrative | Performed At | + + + | Please click | [facility] | | on view image for the detailed interpretation from [facility] results. | CARDIOLOGY | + + + + + | Procedure Note | + + | Interface, Cardiology Results - 03/04/2013 8:00 AM PDT Please click on view image | | for the detailed interpretation from [facility] results. | + + + + + + + | Performing | Address | City/State/Zipcode | Phone Number | | Organization | | | | + + + + + | [facility] | [address] | [place], [place] | | | CARDIOLOGY | [address] | [address] | | + + + + + documented in this encounter Visit Diagnoses Not on filedocumented in this encounter"
--- OUTSIDE RECORDS SUMMARY | ~2019-08-03 | XMS | Clinical Summary ---
Demographics + + + | Address | [address] | | | [place] [address] | + + + | Home Phone [...] + + + | Author | [facility] | | | and Zekeana | + + + | Organization | [facility] | | | and [place] | [...] Team Providers + +------+ + | Care Zinc Miner Blasting Name | Role | Phone | + [...] + + | Coronary artery disease involving shungnak coronary artery of | 02/20/2019 | | shungnak heart without angina pectoris | | + [...] involving | | | | | | shungnak coronary | | | | | | artery of shungnak | | | | | | heart [...] | | | | | [place] [address] | | | | | | [phone] | | | | | | | | +--------+---------+ + + + | 11/26/ | Office | Cardiology | Sissy Noyola | | | 2020 | Visit | | MD Marisol [address] | | | | | | [place] | | | | | | [address] | | | | | | | [...] | 10/22/ | 8103.0 | | - [id number]: Qty: 1 | | | MEDICAL - | | 2019 | 210S / | | on 01/09/2017 by Kadi, | | | GLBU | | | | | Mendez Nicole MD | | | | | | /[id number] | | | | | | | | [address] | + +------+------+ +--------+--------+--------+ | Quartex Lordotic [...] GLOBUS | | | 8115.0 | | [id number] - SnaImplanted: | | | MEDICAL - [...] | | 10/05/ | 8115.0 | | [id number] - | | | MEDICAL - | | 2019 | 120S / | | [id number]: Qty: 1 on | | | GLBU | | | | | 01/09/2017 by Kadi, | | | | | | /[id number] | | Mendez Nicole MD | | | | | | 4CG | + +------+------+ +--------+--------+--------+ | Graft Duragen 1x1in - | | | INTEGRA | | / | ID-110 | | [id number]: Qty: 1 on | | | LIFESCIENCE | | 2020 | 1 / | | 01/09/2017 by Kadi, | | | S YOLANDA - | | | /[id number] | | Mendez Nicole MD | | [...] | | t Plan | ID | alrry | | | | | | / | | Dates | | | | | | Group | | | | | | + +--------+ +--------+ +---------+--------+ | MEDICARE | MEDICA | [id number] | 10/22/19 | [phone] | | Medica | | | RE | | 16-Pre | 5 | | re | | | PART A | | sent | | | | | | AND B | | | | | | + +--------+ +--------+ +---------+--------+ | MEDICARE | MEDICA | [id number] | 10/22/19 | [phone] | | Medica | | | RE | | 16-Pre | 5 | | re | | | PART A | | sent | | | | | | AND B | | | | | | + +--------+ +--------+ +---------+--------+ | [facility] | IHS | [id number] | | | | Indemn | | SERVICE | YELLOW | | 019-Pr | | | ity | | | HAWK | | esent | | | | + +--------+ +--------+ +---------+--------+ | [place]ICAID [place] | MEDICA | [id number] | | [phone] | | Medica | | | ID [place] | | 019-Pr | 2 | | id | | | PLUS | | esent | | | | + +--------+ +--------+ +---------+--------+ | [facility] | IHS | [id number] | | | | Indemn | | [...] | 1951 | [phone] | [place] [address] | | | blaire | | | 4 (Home) | | + +--------+ +--------+ + + | Jorge L Cisneros | Person | Self | [birth year] | [address] | | | al/Fam | | 1951 | [phone] | [place] [address] | | | blaire | | | 4 (Home) | | + +--------+ +--------+ + + Advance Directives + + + + + | Type | Date Recorded | Patient | Explanation | | | | Forging Die Sinker | | + + + + + | Power of | | | | | Radius Corner Machine Operator | | | | + + + + + | Advance | | | | | Directive | | | | + + + + +
--- OUTSIDE RECORDS SUMMARY | ~2019-08-03 | XMS | Encounter Summary ---
Demographics + + + | Address | [address] | | | [place] [address] | + + + | Home Phone | | + + + | Preferred Language | Unknown | + + + | Marital Status | Single | + + + | Restoration Affiliation | 1041 | + + + | Race | Unknown | + + + | Ethnic Group | Unknown | + + + Author + + + | Author | and [facility] | | | and [place]ke[place] | + + + | Organization | and [facility] | | | and [place] [...] Team Providers + +------+ + | Care Drum Operator Name | Role | Phone | + +------+ + PCP | Unavailable | + +------+ + Encounter Details +--------+ + + + + | Date | Type | Department | Care Team | Description | +--------+ + + + + | 06/11/ | Hospital | [facility] | | | | 1994 - | Encounter | MED CTR OP REHAB | | | | | | [address] | | | | 07/19/ | | [place] [address] | | | | 1994 | | [phone] | | | +--------+ + + + [...] D | | | | | | [place] [address] | | | | | | [phone] | | | | | | | | +--------+---------+ + + + | 11/26/ | Office | Cardiology | Sissy Noyola | | | 2020 | Visit | | MD Marisol [address] | | | | | | [place] | | | | | | [address] | | | | | | | | +--------+---------+ + + + documented as of this encounter Visit Diagnoses Not on filedocumented in this encounter"
--- OUTSIDE RECORDS SUMMARY | ~2019-08-03 | XMS | Encounter Summary ---
Demographics + + + | Address | [address] | | | [place] [address] | + + + | Home Phone [...] Team Providers + +------+ + | Care Plastics Sheet Finishing Press Operator Name | Role | Phone | + +------+ + | Gracie Mariano MD | PCP | | + +------+ + Encounter Details +--------+------+ + + + | Date | Type | Department | Care Team | Description | +--------+------+ + + + | 05/16/ | Lab | Laboratory, | | (ankylosing | | 2012 | | Specimen Collection | | spondylitis) ([facility]) | | | | at [facility] 3rd Floor | | | | | | [address] | | | | | | [address] [place], [place] | | | | | | [address] | | | | | | [phone] | | | +--------+------+ + + + [...] | e | 12:26 PM | spondylitis) ([facility]) | procedure are in the | | | | PDT | | results section. | + +--------+ + + + | SEDIMENTATION RATE | Routin | 05/16/2013 | (ankylosing | Results for this | | | e | 12:26 PM | spondylitis) ([facility]) | procedure are in the | | | | PDT | | results section. | + +--------+ + + + | HEPATITIS B SURFACE | Routin | 05/16/2013 | (ankylosing | Results for this | | AG, SERUM | e | 12:26 PM | spondylitis) ([facility]) | procedure are in the | | | | PDT | | results section. | + +--------+ + + + | HEPATITIS B CORE AB, | Routin | 05/16/2013 | (ankylosing | Results for this | | SERUM | e | 12:26 PM | spondylitis) ([facility]) | procedure are in the | | | | PDT | | results section. | + +--------+ + + + | HEPATITIS C VIRUS | Routin | 05/16/2013 | (ankylosing | Results for this | | W/CONFIRMATION | e | 12:26 PM | spondylitis) ([facility]) | procedure are in the | | [...] + | [facility] - | [address] | [place] [address] | | | [place] | | | [...] | + + + + + | [facility] - | [address] | [place] [address] | | | [place] | | | | + + + [...] + | [facility] - | [address] | [place] [address] | | | [place] | | | [...] [facility] | [address] | [place] [address] | | | SERVICES, NAY | GENNARO [...] + | [facility] - | [address] | [place] [address] | | | [place] | | | | + + + + + documented in this encounter Visit Diagnoses + + | Diagnosis | + + | (ankylosing spondylitis) (HCC) Ankylosing spondylitis | + + documented in this encounter"
--- OUTSIDE RECORDS SUMMARY | 2019-08-03 21:24 | XMS ---
PreManage Notification: JOSE RAFAEL [place] Security Lens Inspector Events No recent Security Events currently on file CRITERIA MET - Group Notification - [facility] CARE PROVIDERS NATHALY ANTONY Physician Network Control Operator: Surgical 01/30/2019-Current PHONE: Unknown QI HAIR [facility] 10/31/2018-Current PHONE: Unknown Sarah Rivas Voyage Management System Operator/Plant Biology Professor 06/26/2016-Current PHONE: [phone] Saarh Rivas Primary Care 06/26/2016-Current PHONE: [phone] [facility] Case or Herb Grower 01/26/2017-[facility] PHONE: [phone] DR QI HAIR Primary Care 02/20/2017-Current PHONE: [phone] Fuad has no Care Guidelines for this patient. 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 \T\middot;\T\nbsp; PLEASE REFER PATIENT TO [facility] FOR NON EMERGENT MEDICAL NEEDS. \T\middot;\ T\nbsp; [facility] CAN SEE PATIENTS SAME DAY FOR APTS IF PATIENT CALLS FIRST THING IN THE MORNING. E.D. VISIT COUNT (12 MO.) 4 [facility] TOTAL 4 NOTE: Visits indicate total known visits. ED/UCC VISIT TRACKING (12 MO.) 08/03/2019 21:22 [facility] [place] TYPE: Emergency COMPLAINT: - SEIZURE 01/28/2019 15:58 [facility] [place] TYPE: Emergency COMPLAINT: - CHEST PAIN DIAGNOSES: - Other oysterman (current) drug therapy - Precordial pain - Allergy status to narcotic agent status - Allergy status to oth drug/meds/biol subst status - Essential (primary) hypertension - Allergy status to other antibiotic agents status - ocean transportation intermediary (current) use of insulin - Allergy status to penicillin - 1 Type 2 diabetes mellitus without complications - Hypothyroidism, unspecified - Allergy status to sulfonamides status - Prsnl hx of TIA (TIA), and cereb infrc w/o resid deficits 11/03/2018 11:09 [facility] [place] TYPE: Emergency COMPLAINT: - L ARM NUMBNESS DIAGNOSES: - Allergy status to oth drug/meds/biol subst status - Essential (primary) hypertension - Prsnl hx of TIA (TIA), and cereb infrc w/o resid deficits - Allergy status to sulfonamides status - 1 Type 2 diabetes mellitus without complications - Allergy status to other antibiotic agents status - Other custodial (current) drug therapy - Allergy status to penicillin - ocean transportation intermediary (current) use of insulin - Hypothyroidism, unspecified - Allergy status to narcotic agent status 10/30/2018 15:43 [facility] [place] TYPE: Emergency COMPLAINT: - WEAKNESS/CONFUSION INPATIENT VISIT TRACKING (12 MO.) 10/30/2018 15:[address] [facility] [place] TYPE: Observation COMPLAINT: - PNEUMONIA DIAGNOSES: - Hypothyroidism, unspecified - ocean transportation intermediary (current) use of anticoagulants - 1 Type 2 diabetes mellitus without complications - Altered mental status, unspecified - Antiphospholipid syndrome - Prsnl hx of TIA (TIA), and cereb infrc w/o resid deficits - Other oysterman (current) drug therapy - Pneumonia, unspecified organism - Primary osteoarthritis, left shoulder - Weakness - Essential (primary) hypertension - Other chronic postprocedural pain - ocean transportation intermediary (current) use of insulin [email or web address]
[2019-08-03] MEDS ORDERED: MORPHINE SULFAT30 M2 PO (21:34)
[2019-08-03] MEDS ORDERED: METOPROLOL TART25 MG PO (21:34)
[2019-08-03] MEDS ORDERED: ISOSORBIDE MONO30 MG PO (21:34)
[2019-08-03] MEDS ORDERED: DONEPEZIL HCL5 MG PO (21:34)
[2019-08-03] MEDS ORDERED: OZEMPIC0.25 MG/0. SUB-Q (21:35)
[2019-08-03] MEDS ORDERED: ATORVASTATIN CA40 MG PO (21:35)
== END 2019-08-04 00:39 | disposition home or self-care (01) ==
LOC: ED 21:21
DX: R56.9 Unspecified convulsions (principal); E11.9 Type 2 diabetes mellitus without complications; E03.9 Hypothyroidism, unspecified; I10 Essential (primary) hypertension; Z88.0 Allergy status to penicillin; Z88.5 Allergy status to narcotic agent; Z88.2 Allergy status to sulfonamides; Z79.899 Other long term (current) drug therapy
CPT/HCPCS: 70450; 80053; 85025; 99284-25; G0480; J7030

== ENCOUNTER 2019-11-21 12:46 | Inpatient (IN) | payer MEDICARE, OTHER ==
[~2019-11-21] VITALS: Ht 175.3 cm; Wt 106.5 kg
[~2019-11-21 12:46] MED LIST changes: +ATORVASTATIN CA40 MG PO; +DONEPEZIL HCL5 MG PO; +ISOSORBIDE MONO30 MG PO; +MORPHINE SULFAT30 M2 PO; +OZEMPIC0.25 MG/0. SUB-Q
--- OUTSIDE RECORDS SUMMARY | 2019-11-21 12:48 | XMS ---
PreManage Notification: JOSE RAFAEL [place]ALK[place] Security Shoemaking Finisher Events No recent Security Events currently on file CRITERIA MET - Group Notification - [facility] CARE PROVIDERS NATHALY ANTONY Physician Manager Decision Support: Surgical 01/30/2019-Current PHONE: Unknown QI HAIR [facility] 10/31/2018-Current PHONE: Unknown Sarah Rivas Special Events Driver/International First Officer 06/26/2016-Current PHONE: [phone] Jackelyn Alfredo [facility] 08/04/2019-Current PHONE: [phone] EvelynSarah Primary [facility] 06/26/2016-Current PHONE: [phone] ST ASHER PILLAGER Case or Pricing Lead 01/26/2017-[facility] AND [facility] PHONE: [phone] DR QI HAIR Primary Care 02/20/2017-Current PHONE: [phone] Fuad has no Care Guidelines for this patient. Care History Medical/Surgical 10/31/2018 [facility] \T\middot;\T\nbsp; PATIENT- [facility] ELIGIBLE \T\middot;\T\nbsp; PLEASE REFER PATIENT TO [facility] FOR NON EMERGENT MEDICAL NEEDS. \T\middot;\ T\nbsp; [facility] CAN SEE PATIENTS SAME DAY FOR APTS IF PATIENT CALLS FIRST THING IN THE MORNING. E.D. VISIT COUNT (12 MO.) [address] [facility] TOTAL 3 NOTE: Visits indicate total known visits. ED/UCC VISIT TRACKING (12 MO.) 11/21/2019 12:47 [facility] [place] TYPE: Emergency COMPLAINT: - SOB/COUGHING BLOOD 08/03/2019 21:22 [facility] [place] TYPE: Emergency COMPLAINT: - SEIZURE DIAGNOSES: - Other halfway (current) drug therapy - Allergy status to sulfonamides status - Essential (primary) hypertension - Hypothyroidism, unspecified - Type 2 diabetes mellitus without complications - Allergy status to penicillin - Allergy status to narcotic agent status - Unspecified convulsions 01/28/2019 15:58 [facility] [place] TYPE: Emergency COMPLAINT: - CHEST PAIN DIAGNOSES: - Other emt intermediate (current) drug therapy - Precordial pain - Allergy status to narcotic agent status - Allergy status to other drugs, medicaments and biological sub - Essential (primary) hypertension - Allergy status to other antibiotic agents status - terminal carman (current) use of insulin - Allergy status to penicillin - Type 2 diabetes mellitus without complications - Hypothyroidism, unspecified - Allergy status to sulfonamides status - Personal history of transient ischemic attack (TIA), and cere INPATIENT VISIT TRACKING (12 MO.) No inpatient visits to display in this time frame [id number]
[2019-11-22] MEDS ORDERED: DOXYCYCLINE HY100 MG PO (17:12)
[2019-11-22] MEDS ORDERED: GABAPENTIN100 MG PO (17:17)
[2019-11-22] MEDS ORDERED: KEPPRA500 MG PO (17:17)
== END 2019-11-22 17:46 | disposition home or self-care (01) | DRG 193 ==
LOC: ED 12:46 → MS 17:11
PROVIDERS: ADMIT Student in an Organized Health Care Education/Training Program
DX: J15.4 Pneumonia due to other streptococci (principal); J96.91 Respiratory failure, unspecified with hypoxia; D68.61 Antiphospholipid syndrome; R04.2 Hemoptysis; F17.290 Nicotine dependence, other tobacco product, uncomplicated; E11.9 Type 2 diabetes mellitus without complications; E03.9 Hypothyroidism, unspecified; I10 Essential (primary) hypertension; G40.909 Epilepsy, unspecified, not intractable, without status epilepticus; M45.9 Ankylosing spondylitis of unspecified sites in spine; G89.29 Other chronic pain; F03.90 Unspecified dementia, unspecified severity, without behavioral disturbance, psychotic disturbance, mood disturbance, and anxiety; R51 Headache; Z86.73 Personal history of transient ischemic attack (TIA), and cerebral infarction without residual deficits; Z88.0 Allergy status to penicillin; Z88.5 Allergy status to narcotic agent; Z88.2 Allergy status to sulfonamides; Z88.8 Allergy status to other drugs, medicaments and biological substances; Z79.01 Long term (current) use of anticoagulants; Z79.4 Long term (current) use of insulin; Z79.891 Long term (current) use of opiate analgesic; Z79.899 Other long term (current) drug therapy
CPT/HCPCS: 36415; 70450; 71046; 80048; 80053; 83605; 83735; 85025; 85610; 92610; 94667; 94668; 94760; 96361; 96365; 96375; 97116; 97162; 97165; 99285-25; J0696; J1170; J1815; J3490; J7030; J7121

== ENCOUNTER 2020-12-04 22:34 | Emergency (ER) | payer MEDICARE, OTHER ==
[~2020-12-04] VITALS: Ht 175.3 cm; Wt 97.5 kg
[~2020-12-04 22:34] MED LIST changes: +DOXYCYCLINE HY100 MG PO; +KEPPRA500 MG PO
--- OUTSIDE RECORDS SUMMARY | 2020-12-04 22:36 | XMS ---
PreManage Notification: JOSE RAFAEL WALKER Security Dye Automation Operator Events No recent Security Events currently on file CRITERIA MET - Group Notification - [facility] - Has Care Guidelines - PDMP CARE PROVIDERS NATHALY ANTONY Physician Mud Boss: Surgical 01/30/2019-Current PHONE: Unknown QI HAIR [facility] 10/31/2018-Current PHONE: Unknown Sarah Rivas Housekeeping Assistant/Territory Sales Executive 11/21/2020-Current PHONE: [phone] [facility] 08/04/[facility] PHONE: [phone] Fuad has no Care Guidelines for this patient. Care History Medical/Surgical 10/31/2018 [facility] \T\middot;\T\nbsp; PATIENT- [facility] ELIGIBLE \T\middot;\T\nbsp; PLEASE REFER PATIENT TO [facility] FOR NON EMERGENT MEDICAL NEEDS. \T\middot;\ T\nbsp; [facility] CAN SEE PATIENTS SAME DAY FOR APTS IF PATIENT CALLS FIRST THING IN THE MORNING. E.D. VISIT COUNT (12 MO.) 1 [facility] TOTAL 1 NOTE: Visits indicate total known visits. ED/UCC VISIT TRACKING (12 MO.) 12/04/2020 22:34 [facility] [place] TYPE: Emergency COMPLAINT: - SEIZURE INPATIENT VISIT TRACKING (12 MO.) No inpatient visits to display in this time frame [email or web address]
== END 2020-12-05 06:40 | disposition home or self-care (01) ==
LOC: ED 22:34
DX: G40.909 Epilepsy, unspecified, not intractable, without status epilepticus (principal); E11.9 Type 2 diabetes mellitus without complications; E03.9 Hypothyroidism, unspecified; I10 Essential (primary) hypertension; F03.90 Unspecified dementia, unspecified severity, without behavioral disturbance, psychotic disturbance, mood disturbance, and anxiety; Z88.0 Allergy status to penicillin; Z79.4 Long term (current) use of insulin; Z88.5 Allergy status to narcotic agent; Z88.2 Allergy status to sulfonamides; Z88.1 Allergy status to other antibiotic agents; Z79.899 Other long term (current) drug therapy
CPT/HCPCS: 70450; 80053; 85025; 96374; 96375; 99284-25; J1953; J2060

== ENCOUNTER 2021-03-03 18:40 | Observation (INO) | payer MEDICARE, OTHER ==
[~2021-03-03] VITALS: Ht 175.3 cm; Wt 85.1 kg
[~2021-03-03 18:40] MED LIST changes: +ARICEPT10 MG PO; -D-20002000 UNIT PO; -DAILY MULTIPLE1 EACH PO; -DONEPEZIL HCL5 MG PO; +THEREMS-M TABL1 EACH PO; +VITAMIN D3125 MC1 PO
--- OUTSIDE RECORDS SUMMARY | 2021-03-03 18:42 | XMS ---
PreManage Notification: JOSE RAFAEL WALKER Security Community Health Agent Events No recent Security Events currently on file CRITERIA MET - Group Notification - PDMP CARE PROVIDERS NATHALY ANTONY Physician Name Plate Stamping Machine Operator: Surgical 01/30/2019-Current PHONE: Unknown QI HAIR [facility] 10/31/2018-Current PHONE: [phone] Sarah Rivas Brake Repairer Railroad/Regional Sales Associate 02/20/2021-Current PHONE: [phone] WALDO GOODEN [facility] 12/05/2020-Current PHONE: [phone] [facility] 08/04/2019-[facility] PHONE: [phone] Fuad has no Care Guidelines for this patient. Care History Medical/Surgical 10/31/2018 [facility] \T\middot;\T\nbsp; PATIENT- [facility] ELIGIBLE \T\middot;\T\nbsp; PLEASE REFER PATIENT TO [facility] FOR NON EMERGENT MEDICAL NEEDS. \T\middot;\ T\nbsp; [facility] CAN SEE PATIENTS SAME DAY FOR APTS IF PATIENT CALLS FIRST THING IN THE MORNING. E.D. VISIT COUNT (12 MO.) 2 [facility]. TOTAL 2 NOTE: Visits indicate total known visits. ED/UCC VISIT TRACKING (12 MO.) 03/03/2021 18:40 [facility] [place] TYPE: Emergency COMPLAINT: - ALTERED LOC 12/04/2020 22:34 [facility] [place] TYPE: Emergency COMPLAINT: - SEIZURE DIAGNOSES: - termite exterminator helper (current) use of insulin - Allergy status to sulfonamides - Allergy status to narcotic agent - Type 2 diabetes mellitus without complications - Other assisted (current) drug therapy - Epilepsy, unspecified, not intractable, without status epilepticus - Unspecified dementia without behavioral disturbance - Epilepsy, unspecified, not intractable, without status epilepticus - Allergy status to penicillin - Essential (primary) hypertension - Migraine, unspecified, not intractable, without status migrainosus - Hypothyroidism, unspecified - Allergy status to other antibiotic agents INPATIENT VISIT TRACKING (12 MO.) No inpatient visits to display in this time frame [email or web address]
--- NOTE | 2021-03-03 23:35 | NUR ---
pt ARRIVES TO MS FLOOR VIA STRETCHER. AMBULATORY TO RESTROOM FOR VOID AND BM. RN SHERIF IN ROOM ASSESSING PATIENT. ORIENATATION TO ROOM PROVIDED. LOW CARB FOODS PROVIDED BY ASSISTANT ART DIRECTOR RN. PRIMARY RN REMAINS IN ROOM.
--- NOTE | 2021-03-04 | NUR ---
pt ARRIVED TO FLOOR AT 2335 VIA STRETCHER. PT IS ALERT AND AWAKE AND INTERACTIVE WITH STAFF. PT ARRIVED STILL IN STREET CLOTHES; CHANGED PT IN TO HOSPITAL GOWN FOR EASE OF CARE AND FOR TELE. SBA FWW TO TOILET TO VOID; PT URINATED 600ML CLEAR YELLOW URINE AND HAD BM. PT ASSISTED BACK TO BEDSIDE TO EAT DINNER. LUNG SOUNDS CLEAR, DIM. BOWEL TONES ACTIVE, BILATERAL KNEE ABRASIONS, SOME SWELLING AT KNEES. CMS INTACT; PT REPORTS SOME NUMBNESS IN RT GREAT TOE. PT HAD GLUCOSE MONITOR ON LEFT ARM. PT REPORTS PAIN 8/10 IN KNEES. PRN OXYCODONE ADMINISTERED. CALL LIGHT WITHIN REACH. WILL RETURN WHEN PT IS FINISHED EATING DINNER.
--- NOTE | 2021-03-04 00:30 | NUR ---
CHECKED ON PT, BROUGHT A WARM BLANKET FOR AROUND SHOULDERS. PT STILL FINISHING FOOD. DECLINES NEEDS AT THIS TIME.
--- NOTE | 2021-03-04 00:40 | NUR ---
CHECKED ON PT. PT HAS FINISHED EATING; WOULD LIKE TO SIT IN RECLINER. SBA FWW TO CHAIR WITH WARM BLANKETS. PT REQUESTS "DESSERT"; SUGAR FREE PUDDING AND HOT TEA PROVIDED. PER REQUEST, CELL PHONE PEDICURIST PROVIDED. CALL LIGHT AND BEDSIDE TABLE WITHIN REACH. PT WOULD LIKE TO WATCH TV FOR AWHILE. WILL CONTINUE TO MONITOR
--- NOTE | 2021-03-04 01:59 | NUR ---
CHECKED ON PT; PT STILL AWAKE AND UP IN CHAIR. REQUESTS MORE WATER WHICH IS PROVIDED. CALL LIGHT WITHIN REACH. NO FURTHER NEEDS AT THIS TIME.
--- NOTE | 2021-03-04 03:20 | NUR ---
CHECKED ON PT; PT HAD FALLEN ASLEEP IN CHAIR. SBA FWW TO BED. CALL LIGHT WITHIN REACH, BEDSIDE WITHIN REACH.
--- NOTE | 2021-03-04 04:37 | NUR ---
CALL LIGHT ANSWERED. PT UP TO TOILET TO VOID. PT REPORTS A SECOND BM SINCE ADMIT BUT HAD ALREADY FLUSHED TOILET. PT RETURNED TO BED, ASSESSMENT AND VITALS COMPLETED. PT C/O / KNEE PAIN WHEN WALKING BUT "LESS WHEN LAYING". VSS. PT REPORTS NO DIZZINESS OR LIGHT HEADEDNESS WITH AMBULATION. URINE OUTPUT AND ORAL INTAKE EXCELLENT. WATER REFILLED. CALL LIGHT WITHIN REACH. NO FURHTER NEEDS AT THIS TIME.
--- NOTE | 2021-03-04 06:13 | NUR ---
PT UP TO TOILET TO VOID. PRN OXYCODONE AND TYLENOL ADMINISTERED FOR 8/10 PAIN. PT RETURNED TO BED, CALL LIGHT WITHIN REACH. NO FURTHER NEEDS AT THIS TIME.
--- NOTE | 2021-03-04 07:10 | NUR ---
Received call from Cheyanne at [facility] requesting update and H&P faxed for PCP update.
--- NOTE | 2021-03-04 07:46 | NUR ---
Patient resting in bed, alert and oriented x3. Patient denies pain at this time. Breakfast ordered at this time. No distress noted. Personal supplies and call light within reach.
--- NOTE | 2021-03-04 07:58 | NUR ---
PATIENT AMBULATED FROM THE BED TO THE CHAIR, SBA AND FWW. WARM WASHCLOTH PROVIDED AND WHITE BOARD UPDATED. BREAKFAST SERVED TO PATIENT. CALL LIGHT IN REACH AND NO FURTHER NEEDS AT THIS TIME.
[2021-03-04] MEDS ORDERED: ATORVASTATIN CA40 MG PO (08:30)
--- NOTE | 2021-03-04 10:13 | NUR ---
Patient sitting up in chair, respirations even and non labored. Patient has no notable distress. Patient denies palpitations and dizziness at rest and with activity. Orthostatics taken this morning-see charting for further details. Patient has no needs. Daily cares and shower done. Call light within reach.
--- NOTE | 2021-03-04 10:41 | NUR ---
PATIENT IN CHAIR WATCHING TV. VITALS AND I&O'SC CHARTED. CALL LIGHT IN REACH. NO FURTHER NEEDS AT THIS TIME.
--- NOTE | 2021-03-04 10:57 | NUR ---
PATIENT AMBULATED TO THE BATHROOM, SBA. WORKERS' COMPENSATION MAGISTRATE SET UP FOR SHOWER AND ASSISTED WITH INITIAL STAGES OF SHOWER. PATIENT SHOWERED INDEPENDENTLY. BATHROOM WAS CLEANED BY THE WORKERS' COMPENSATION MAGISTRATE. PATIENT AMBULATED TO THE CHAIR AFTER PERFORMING AM AND ORAL CARE.
--- NOTE | 2021-03-04 12:01 | EKG ---
[facility] [address] [place] [address] Signed Normal sinus rhythm Left axis deviation Abnormal ECG When compared with ECG of 28-JAN-2019 15:58, Incomplete right bundle branch block is no longer present Borderline criteria for Anteroseptal infarct are no longer present Confirmed by ELENI NEGRETE DO ([id number]) on 03/04/2021 12:00:59 PM Electronically Signed By: ELENI NEGRETE DO 03/04/21 1201 PATIENT NAME: JOSE RAFAEL WALKER SIDNEY Electrocardiogram DATE OF : 50 PHYSICIAN: ELENI NEGRETE DO REPORT #: [id number] REPORT IS CONFIDENTIAL AND NOT TO BE RELEASED WITHOUT AUTHORIZATION
--- NOTE | 2021-03-04 13:04 | NUR ---
Oxycodone 5mg po and lidocaine cream applied to bilat knees.
[2021-03-04] MEDS ORDERED: METOPROLOL SUC100 MG PO (13:09)
[2021-03-04] MEDS ORDERED: LEVOTHYROXINE75 MCG PO (13:10)
[2021-03-04] MEDS ORDERED: BASAGLAR K100 UNIT/1 SUB-Q (13:12)
[2021-03-04] MEDS ORDERED: NOVOLOG FL100 UNIT/1 SUB-Q (13:15)
[2021-03-04] MEDS ORDERED: HYDROCHLOROTHIA25 MG PO (13:16)
[2021-03-04] MEDS ORDERED: LISINOPRIL30 MG PO (13:20)
--- NOTE | 2021-03-04 13:48 | NUR ---
PATIENT AMBULATED FROM THE CHAIR TO THE BATHROOM AND BACK, SBA WITH FWW. VITALS AND I&O'S CHARTED. FRESH WATER GIVEN. CALL LIGHT IN REACH AND NO FURTHER NEEDS AT THIS TIME/
--- NOTE | 2021-03-04 13:48 | NUR ---
PT ALERT, ORIENTED AND SITTTNG IN CHAIR. PT IS FRIENDLY, CORDIAL AND ENGAGES IN CONVERSATION. PT DID STATE HE IS READY TO DC-"THIS IS NOT WHERE I WANT TO BE". DATA PROCESSING MECHANICMarques HOLBROOKI IN TO DO VS, GAVE BLESSING AND G.POST. WILL FOLLOW
--- NOTE | 2021-03-04 15:00 | NUR ---
Pt lives alone in a duplex. Granddaughter lives near by. Pt has many family members who check on him. He has question about a halter monitor. Discussed we will need to go through [facility] for his halter roel remy and appt with Cardiology. I will call [facility] and request orders. He denies other needs. States he does well and is financially ok, states he gives alot of his money away to family.
--- NOTE | 2021-03-04 15:29 | NUR ---
REPORT FROM KARISSA GUZMAN. PT SITTING UP IN CHAIR. DENIES CONCERNS OR NEEDS. CABRERA CONCEPCION BROUGHT IN NEW ICE WATER.
--- NOTE | 2021-03-04 16:15 | NUR ---
Attempted to call Cheyanne and Irais at [facility]. Cheyanne case management and Irais Rn in [facility].Left message with for Irais asking for auth for Cardiology visit with Dr. Penaloza as pt would like to see here when they visit from [facility]. Pt states he does not want to drive to [facility]. Also asked if they had made progress on rx for halter monitor which was sent by the medical floor house steward/stewardess yesterday.
--- NOTE | 2021-03-04 18:41 | NUR ---
ON SPEAKING WITH PT HE WONDERED WHEN WE WERE GOING TO TAKE HIS BLOOD SUGAR. HE STATED HE DOES NOT USUALLY TAKE INSULIN AND IS DIET CONTROLLED BUT STILL MONITORS HIS BLOOD SUGAR WITH THE IMPLANT ON HIS ARM AND A SCREEN AT HOME. ASSESSED AND IT WAS 161 AFTER EATING.
--- NOTE | 2021-03-04 18:48 | NUR ---
UNABLE TO SELECT BLOOD SUGAR TEST FOR PT REQUEST, PUT IRRITABILITY PRN REASON TO SATISFY [facility]
--- NOTE | 2021-03-04 19:10 | NUR ---
RECEIVED REPORT ON PT, HE IS RESTING IN CHAIR WITH EYES CLOSED, RR IS EVEN AND NONLABORED. CALL LIGHT IS CLOSE.
--- NOTE | 2021-03-04 21:05 | NUR ---
IN ROOM TO ASSESS PT AND ADMINISTER MEDICATION. PT REPORTS PAIN 7/10 IN KNEES AND HAS A HEADACHE. ADMINISTERED OXYCODONE, TYENOL AND LIDOCAIN CREAM. HE REPORTS SOME RINGING IN HIS L EAR, WILL CONTINUE TO MONITOR. PT DENIES: DIZZINES, CHEST PAIN, AND SOB. ADVISED PT TO CALL THIS RN WHEN HE IS READY TO GET OUT OF THE CHAIR AND GO TO BED OR USE THE RESTROOM. PT ALSO STATES HE MAY WANT A SHOWER TONIGHT. TOLD PT WE SHOULD TRY TO WAIT ON THAT WE JUST PUT LIDOCAIN CREAM ON. FRESH ICEWATER AT BEDSIDE AND PT DENIES FURTHER NEEDS AT THIS TIME. CALL LIGHT IS CLOSE.
--- NOTE | 2021-03-04 21:55 | NUR ---
PT CALLED FOR MORE WARM BLANKETS AND ASKING FOR HOT CHOCOLATE. WILL HAVE SOMEONE CHECK KITCHEN FOR HOT CINDI OR CINDI MILK. PT DENIES FURTHER NEEDS AT THIS TIME. CALL LIGHT IS CLOSE.
--- NOTE | 2021-03-04 22:10 | NUR ---
BROUGHT WARM CHOCOLOATE MILK INTO ROOM FOR PT AND TURNED HEAT UP PER PT REQUEST. PT ASKED FOR HIS BLOOD GLUCOSE TO BE CHECKED. BG IS 138. PT DENIES FURTHER NEEDS AT THIS TIME. CALL LIGHT IS CLOSE.
--- NOTE | 2021-03-04 23:12 | NUR ---
IN ROOM TO ASSIST PT TO THE RESTROOM, SBA WITH FWW. HE DENIES FURTHER NEEDS AT THIS TIME. CALL LIGHT IS CLOSE.
--- NOTE | 2021-03-05 02:14 | NUR ---
PT IS RESTING WITH EYES CLOSED, RR IS EVEN AND NONLABORED. TELE SHOWS HR OF 59-63 IN SR. CALL LIGHT IS CLOSE.
--- NOTE | 2021-03-05 03:31 | NUR ---
IN ROOM TO ADMINISTER OXYCODONE FOR 8/10 KNEE PAIN. PT ALSO COMPLAINS OF AN EARACHE IN L EAR. PT STATES IT FEELS LIKE HE NEEDS TO POP HIS EAR OR HAS EARWAX INSIDE. PT DENIES HEADACHE ANYLONGER OR RINGING IN EAR. ASKED PT IF HE FEELS CONGESTED AND IF HE'D LIKE TO TRY SALINE NASAL SPRAY. HE STATES HE COULD TRY IT. PUT NIO ORDER IN AND WILL SEND MSG TO ABOUT IT. PT DENIES FURTHER NEEDS AT THIS TIME. CALL LIGHT IS CLOSE. WARM PACKS PROVIDED FOR KNEES.
--- NOTE | 2021-03-05 05:39 | NUR ---
PT IS RESTING WITH EYES CLOSED, RR IS EVEN AND NONLABORED. CALL LIGHT IS CLOSE AND TELE READS HR OF 57 IN SR.
--- NOTE | 2021-03-05 06:54 | NUR ---
IN ROOM TO ADMINISTER AM MEDS AND LIDOCAINE CREAM. PT REPORTS PAIN IN KNEES 8/10 TOO EARLY FOR NORCO AT THIS TIME. PT DENIES FURTHER NEEDS. CALL LIGHT IS CLOSE.
--- NOTE | 2021-03-05 07:38 | NUR ---
REPORT RECEIVED FROM NIGHTSHIFT RN, PT SITTING AT BEDSIDE RECLINER AT THIS TIME AWAKE AND ALERT. PT REPORTS RECEIVING LIDOCAINE CREAM FOR PAIN HE WAS HAVING. PT UPDATED ON PLAN OF CARE AT THIS TIME, QUESTIONS ANSWERED. ICE WATER GIVEN TO PT PER HIS REQUEST, PT REPORTS NO FURTHER NEEDS WHEN ASKED, WILL CONTINUE PLAN OF CARE. CALL LIGHT IN REACH.
--- NOTE | 2021-03-05 08:07 | NUR ---
THIS RN IN TO ASSESS PT AND ADMINISTER SCHEDULED MEDICATIONS. PT SITTING AT BEDSIDE CHAIR AT THIS TIME ALERT AND ORIENTED X 3. PT ASSESSED, VITALS TAKEN, MEDICATIONS ADMINISTERED. PT REPORTS NO NEEDS AT THIS TIME WHEN ASKED AND IS EATING BREAKFAST, WILL CONTINUE PLAN OF CARE. CALL LIGHT IN REACH.
--- NOTE | 2021-03-05 08:45 | NUR ---
Received call from Irais at [facility]. She states pt has been transferred to Dr. Trinh. She tranfered me to Dr. Trinh MA. Updated I am needing auth for OP halter monitor and referral to cardiology in [place] as pt does not want to drive to [facility]. Spoke with Dorothy. She states she speak with Dr. Trinh and will get consults sent to me.
--- NOTE | 2021-03-05 08:58 | NUR ---
PHYSICAL THERAPIST WORKING WITH PT AT THIS TIME.
--- NOTE | 2021-03-05 09:20 | NUR ---
PHYSICAL THERAPIST SEB FINISHED DOING PHYSICAL THERAPY WITH PT. SHE INFORMED THIS RN THAT PT WAS CLEAR TO GO HOME WITHOUT A WALKER. WILL CONTINUE PLAN OF CARE.
[2021-03-05] MEDS ORDERED: METOPROLOL SUCC50 MG PO (09:43)
--- NOTE | 2021-03-05 09:57 | NUR ---
CASE MANAGEMENT AND DR. NEGRETE IN ROOM WITH PT AT THIS TIME TO UPDATE ON POC AND DISCHARGE, WILL CONTINUE PLAN OF CARE.
--- NOTE | 2021-03-05 10:11 | NUR ---
Received consult forms from [facility], but did not receive and authorization number. Called and spoke with Dorothy and she transfers me to Silvia. Silvia states she will send auth now for monitor, but cannot send auth for cardiology appt until she received an appt date. Called [facility] and spoke with Elisabet. She states pt is already established with their office and sees Dr. Rosen. She wants to know if pt wants to see a specific DrKerrie in [place] or will see any of their market director as Dr. Farley does not visit [place]. In and spoke with pt and he states he no longer wants to drive to [place] and will see any of the market director which visit.
--- NOTE | 2021-03-05 10:15 | NUR ---
THIS RN IN TO ADMINISTERED SCHEDULED MEDICATION. PT AWAKE AND ALERT IN BEDSIDE RECLINER. PT REPORTS 8/10 PAIN TO HIS KNEES, SHOULDER AND HEAD. PRN OXYCODONE ADMINISTERED AT THIS TIME ALONG WITH SCHEDULED MEDICATION (SEE MAR). PT REPORTS WANTING TO SHOWER AT THIS TIME. IV COVERED WITH PLASTIC AND TAPE, PT ABLE TO AMBULATE OVER TO SHOWER WITHOUT ASSISTANCE AND IS NOW SHOWERING. WILL CONTINUE PLAN OF CARE.
--- NOTE | 2021-03-05 11:10 | NUR ---
Received auth from Silvia at for halter monitor. Charge nurse notified. Called and scheduled appt with [facility] with Dr. Sims for April 09 at 10;00. Added to dc instructions and notified wire charger.
--- NOTE | 2021-03-05 11:10 | NUR ---
THIS RN IN TO ASSIST. RN MARLENE IN ROOM ASSISTING IN CHANGING AFTER HE FINISHED SHOWERING. IV DC'D AT THIS TIME. CATHETER INTACT, SITE WNL, PT TOLERATED REMOVAL WELL. SITE COVERED WITH GAUZE AND COBAN. PHARMACIST IN TO GIVE DC INSTRUCTIONS, THIS RN GAVE DC INSTRUCTIONS AFTERWARDS. PT QUESTIONS ANSWERED AT THIS TIME. PT NOW SITTING IN BEDSIDE RECLINER AND REPORTS NO FURTHER NEEDS AT THIS TIME, RT TO COME IN AND PLACE HOLTER MONITOR, WILL CONTINUE PLAN OF CARE.
--- NOTE | 2021-03-05 11:36 | NUR ---
ArthurT CURRENTLY IN PT ROOM TO PLACE HOLTER MONITOR, WILL CONTINUE PLAN OF CARE.
--- NOTE | 2021-03-05 11:57 | NUR ---
PT DC INSTRUCTIONS GIVEN, RT PLACED HOLTER MONITOR, APPOINTMENTS SET UP FOR PT BY CASE MANAGEMENT AND PT INFORMED ABOUT HIS FOLLOW UPS. PT IV SITE WNL AFTER REMOVAL. PT TAKEN DOWN TO LOBBY WITH BELONGINGS VIA WHEELCHAIR BY KARISSA GAYLE. FRIEND WAITING OUTSIDE TO TRANSPORT PT.
== END 2021-03-05 11:05 | disposition home or self-care (01) ==
LOC: ED 18:40 → MS 18:41
PROVIDERS: ADMIT Student in an Organized Health Care Education/Training Program; ATTEND Student in an Organized Health Care Education/Training Program
DX: R55 Syncope and collapse (principal); G40.909 Epilepsy, unspecified, not intractable, without status epilepticus; I10 Essential (primary) hypertension; E03.9 Hypothyroidism, unspecified; R00.1 Bradycardia, unspecified; E11.9 Type 2 diabetes mellitus without complications; M54.2 Cervicalgia; Z20.822 Contact with and (suspected) exposure to COVID-19; G89.29 Other chronic pain; D68.61 Antiphospholipid syndrome; Z88.0 Allergy status to penicillin; Z88.2 Allergy status to sulfonamides; Z88.5 Allergy status to narcotic agent; Z88.8 Allergy status to other drugs, medicaments and biological substances; Z86.73 Personal history of transient ischemic attack (TIA), and cerebral infarction without residual deficits
CPT/HCPCS: 70450; 71045; 73502; 73560; 80048; 80053; 81001; 84484; 85025; 93005; 93010; 97110; 97162; C9803; G0378; J7040; U0003

== ENCOUNTER → 2021-03-18 | Emergency (ER) | payer MEDICARE, OTHER ==
[~2021-03-18] VITALS: Ht 175.3 cm; Wt 84.8 kg
[~2021-03-18] MED LIST changes: +BASAGLAR K100 UNIT/1 SUB-Q; +LEVOTHYROXINE75 MCG PO; +LISINOPRIL30 MG PO; +METOPROLOL SUC100 MG PO; +METOPROLOL SUCC50 MG PO
--- OUTSIDE RECORDS SUMMARY | 2021-03-18 11:51 | XMS ---
PreManage Notification: JOSE RAFAEL WALKER Security Dobie Worker Events No recent Security Events currently on file CRITERIA MET - PDMP - Group Notification - [facility] - 2 Visits in 30 Days CARE PROVIDERS NATHALY ANTONY Physician Barrel Dedenting Machine Operator: Surgical 01/30/2019-Current PHONE: Unknown QI HAIR [facility] 10/31/2018-Current PHONE: [phone] Sarah Rivas Learning And Development Analyst/Licensing Officer 02/20/2021-Current PHONE: [phone] WALDO GOODEN [facility] 12/05/2020-Current PHONE: [phone] [facility]/[place] 08/04/2019-[facility] PHONE: [phone] Fuad has no Care Guidelines for this patient. Care History Medical/Surgical 10/31/2018 [facility] \T\middot;\T\nbsp; PATIENT- [facility] ELIGIBLE \T\middot;\T\nbsp; PLEASE REFER PATIENT TO [facility] FOR NON EMERGENT MEDICAL NEEDS. \T\middot;\ T\nbsp; [facility] CAN SEE PATIENTS SAME DAY FOR APTS IF PATIENT CALLS FIRST THING IN THE MORNING. E.D. VISIT COUNT (12 MO.) 3 [facility]. TOTAL 3 NOTE: Visits indicate total known visits. ED/UCC VISIT TRACKING (12 MO.) 03/18/2021 10:49 [facility] TYPE: Emergency COMPLAINT: - SEIZURE SYMPTOMS 03/03/2021 18:40 [facility] TYPE: Emergency COMPLAINT: - ALTERED MENTAL STATUS 12/04/2020 22:34 [facility] TYPE: Emergency COMPLAINT: - SEIZURE DIAGNOSES: - intermediate (current) use of insulin - Allergy status to sulfonamides - Allergy status to narcotic agent - Type 2 diabetes mellitus without complications - Other termite renewal inspector (current) drug therapy - Epilepsy, unspecified, not intractable, without status epilepticus - Unspecified dementia without behavioral disturbance - Epilepsy, unspecified, not intractable, without status epilepticus - Allergy status to penicillin - Essential (primary) hypertension - Migraine, unspecified, not intractable, without status migrainosus - Hypothyroidism, unspecified - Allergy status to other antibiotic agents INPATIENT VISIT TRACKING (12 MO.) 03/03/2021 18:[address] [facility] TYPE: Observation COMPLAINT: - SYNCOPE DIAGNOSES: - Essential (primary) hypertension - Other chronic pain - Allergy status to sulfonamides - Personal history of transient ischemic attack (TIA), and cerebral infarction without residual deficits - Bradycardia, unspecified - Allergy status to other drugs, medicaments and biological substances - Antiphospholipid syndrome - Hypothyroidism, unspecified - Allergy status to narcotic agent - Cervicalgia - Syncope and collapse - Epilepsy, unspecified, not intractable, without status epilepticus - Type 2 diabetes mellitus without complications - Allergy status to penicillin [id number]
== END ==
LOC: ED 10:48
DX: G40.909 Epilepsy, unspecified, not intractable, without status epilepticus (principal); E11.9 Type 2 diabetes mellitus without complications; E03.9 Hypothyroidism, unspecified; I10 Essential (primary) hypertension; F03.90 Unspecified dementia, unspecified severity, without behavioral disturbance, psychotic disturbance, mood disturbance, and anxiety; Z88.0 Allergy status to penicillin; Z88.5 Allergy status to narcotic agent; Z88.2 Allergy status to sulfonamides; Z79.899 Other long term (current) drug therapy
CPT/HCPCS: 70450; 80053; 85025; 96374; 99284-25; J2060

== ENCOUNTER 2021-04-24 14:42 | Observation (INO) | payer MEDICARE, OTHER ==
[~2021-04-24] VITALS: Ht 175.3 cm; Wt 95.6 kg
--- OUTSIDE RECORDS SUMMARY | 2021-04-24 14:44 | XMS ---
PreManage Notification: JOSE RAFAEL WALKER Security Belt Cleaner Events No recent Security Events currently on file CRITERIA MET - PDMP - Group Notification CARE PROVIDERS NATHALY ANTONY Physician Research Electrician: Surgical 01/30/2019-Current PHONE: Unknown QI HAIR [facility] 10/31/2018-Current PHONE: [phone] Sarah Rivas Baby Counselor/Operating Room Surgical Technologist 02/20/2021-Current PHONE: [phone] WALDO GOODEN [facility] 12/05/2020-Current PH[facility]: [phone] [facility] [facility] PHONE: [phone] Fuad has no Care Guidelines for this patient. Care History Medical/Surgical 10/31/2018 [facility] \T\middot;\T\nbsp; PATIENT- [facility] ELIGIBLE \T\middot;\T\nbsp; PLEASE REFER PATIENT TO [facility] FOR NON EMERGENT MEDICAL NEEDS. \T\middot;\ T\nbsp; [facility] CAN SEE PATIENTS SAME DAY FOR APTS IF PATIENT CALLS FIRST THING IN THE MORNING. E.D. VISIT COUNT (12 MO.) 4 [facility]. TOTAL 4 NOTE: Visits indicate total known visits. ED/UCC VISIT TRACKING (12 MO.) 04/24/2021 14:42 [facility] TYPE: Emergency COMPLAINT: - ALTERED LOC 03/18/2021 10:49 [facility] TYPE: Emergency COMPLAINT: - SEIZURE SYMPTOMS DIAGNOSES: - Essential (primary) hypertension - Unspecified dementia without behavioral disturbance - Allergy status to narcotic agent - Allergy status to penicillin - Hypothyroidism, unspecified - Allergy status to sulfonamides - Other senior living (current) drug therapy - Epilepsy, unspecified, not intractable, without status epilepticus - Type 2 diabetes mellitus without complications 03/03/2021 18:40 [facility] TYPE: Emergency COMPLAINT: - ALTERED MENTAL STATUS 12/04/2020 22:34 [facility] TYPE: Emergency COMPLAINT: - SEIZURE DIAGNOSES: - MCC (current) use of insulin - Allergy status to sulfonamides - Allergy status to narcotic agent - Type 2 diabetes mellitus without complications - Other senior living (current) drug therapy - Epilepsy, unspecified, not intractable, without status epilepticus - Unspecified dementia without behavioral disturbance - Epilepsy, unspecified, not intractable, without status epilepticus - Allergy status to penicillin - Essential (primary) hypertension - Migraine, unspecified, not intractable, without status migrainosus - Hypothyroidism, unspecified - Allergy status to other antibiotic agents INPATIENT VISIT TRACKING (12 MO.) 03/03/2021 18:41 [facility] TYPE: Observation COMPLAINT: - SYNCOPE DIAGNOSES: [...] without complications - Allergy status to penicillin [email or web address]
--- NOTE | 2021-04-24 22:45 | NUR ---
Report received from MAP EDITORKARISSA Wright. Pt will be coming via [place].
--- NOTE | 2021-04-24 23:00 | NUR ---
Pt arrived to the floor via stretcher, pt incontinent of urine, andreia care completed and fresh attends in place. Pt is a heavy 2PA to transfer from stretcher to bed. Pt w/ good upper body strength, but very weak lower extremeties. Pt resting in bed safely w/ call light in reach and bed alarm on. Pt w/ severe polydipsia, provider aware. Admission assesment complete, pt alert but disoriented to time, event, and surroundings. Pt is aggitated and states he wants to go home and is going to leave, PRN ativan given per provider orders. IV fluids and IV abx infusing.
--- NOTE | 2021-04-24 23:05 | NUR ---
ASSISTED WITH PT VITALS, WARM BLANKETS PROVIDED AND TELE #3 CHECKED OUT, NO FURTHER NEEDS AT THIS TIME
--- NOTE | 2021-04-24 23:25 | NUR ---
ADMISSION COMPLETED. VITALS TAKEN AND RECORDED. PATIENTS ATTEND CHANGED AND SANTIAGO CARE COMPLETED. PATEINTS IV INFUSING PER ORDER. PRIMARY RN REMAINS IN THE ROOM.
--- NOTE | 2021-04-25 00:07 | NUR ---
Pt resting in bed safely w/ call light in reach and eyes closed, RR even and unlabored. Bed alarm on.
--- NOTE | 2021-04-25 02:11 | NUR ---
Pt resting in bed safely w/ call light in reach, bed alarm on, and IV fluids and abx infusing per provider order. RR even and unlabored.
--- NOTE | 2021-04-25 04:35 | NUR ---
Pt resting in bed safely w/ call light in reach, bed alarm on, and eyes closed. RR even and unlabored.
--- NOTE | 2021-04-25 06:58 | NUR ---
Pt admitted from ER late last night. Pt very confused and forgetful, bed alarm on. Pt able to rest after receiving PRN Ativan. Pt w/ severe polydipsia, provider aware. IV fluids infusing per provider order. Pt incontinent of urine mulitple times throughout the night.
--- NOTE | 2021-04-25 09:50 | NUR ---
Spoke with Munir. He lives in [place]. Uses 2 canes as needed and sometimes use a walker. Pt lives alone, but has multiple family members. Pt states he has memory issues and it is worsening. He is able to state he lives in [place] and is here now, but cannot states he is in [facility]. He doesn't remember last night or coming into the ER. Has questions asking who brought him in last night. We discussed plan for dc and where he would like to go. He states he will not be placed anywhere and does not want to stay with family. Pt plans on dc today and asks I call his sister. He is locked out of his IPhone as he could not remember his password. He cannot remember sisters last name or phone number. I was able to find it in the chart.
--- NOTE | 2021-04-25 10:00 | NUR ---
Patient in bed, alert and oriented x3. Patient is forgetful. Patient expressed to this RN he wants to discharge home. Breakfast to patient. Patient denies current needs. Personal supplies and call light within reach. Patient tolerating his food well.
[2021-04-25] MEDS ORDERED: BASAGLAR K100 UNIT/1 SUB-Q (10:18)
--- NOTE | 2021-04-25 10:22 | NUR ---
Called and spoke with pts sister, Clarence. She states family are all aware of his worsening memory. She states she will pick him up and take him to his home when discharged. She has a neice she thinks who will stay with him. Other family members have attempted to stay, but pt get "mean" with them and they leave. Updated I have called and left a message for Manuela at [facility].
--- NOTE | 2021-04-25 10:42 | NUR ---
Spoke with Dr. Jarvis, she has spoke with Munir. She will discharge and pt needs to follow up with [facility] for med management. Called his sister, Clarence, back. She will pick him up at 11:30.
[2021-04-25] MEDS ORDERED: NOVOLOG FL100 UNIT/1 SUB-Q (10:51)
--- NOTE | 2021-04-25 10:51 | NUR ---
Spoke with Manuela from [facility]. Updated pt will be discharged today and sister will pickup. Our wardrobe attendant is scheduling a follow up appt for pt to be seen at [facility].
--- NOTE | 2021-04-25 11:49 | NUR ---
MED REC COMPLETE
[2021-04-25] MEDS ORDERED: ALLOPURINOL100 MG PO (11:50)
== END 2021-04-25 11:50 | disposition home or self-care (01) ==
LOC: ED 14:42 → MS 14:43
PROVIDERS: ADMIT Internal Medicine; ATTEND Internal Medicine
DX: F03.90 Unspecified dementia, unspecified severity, without behavioral disturbance, psychotic disturbance, mood disturbance, and anxiety (principal); I10 Essential (primary) hypertension; E11.9 Type 2 diabetes mellitus without complications; G40.909 Epilepsy, unspecified, not intractable, without status epilepticus; E03.9 Hypothyroidism, unspecified; M45.9 Ankylosing spondylitis of unspecified sites in spine; G89.4 Chronic pain syndrome; M19.90 Unspecified osteoarthritis, unspecified site; Z20.822 Contact with and (suspected) exposure to COVID-19; Z86.73 Personal history of transient ischemic attack (TIA), and cerebral infarction without residual deficits; Z88.0 Allergy status to penicillin; Z88.5 Allergy status to narcotic agent; Z88.2 Allergy status to sulfonamides; Z88.8 Allergy status to other drugs, medicaments and biological substances; Z88.1 Allergy status to other antibiotic agents; Z79.899 Other long term (current) drug therapy; Z79.890 Hormone replacement therapy; Z79.4 Long term (current) use of insulin
CPT/HCPCS: 51701; 70450; 71045; 80048; 80053; 81001; 83735; 84484; 85025; 96374; 96375; 96376; 99285-25; C9803; G0378; J1953; J2060; J3411; J7030; U0003

== ENCOUNTER 2021-12-11 11:57 | Inpatient (IN) | payer MEDICARE, OTHER ==
[~2021-12-11] VITALS: Ht 175.3 cm; Wt 91.1 kg
--- OUTSIDE RECORDS SUMMARY | 2021-12-11 12:01 | XMS ---
PreManage Notification: JOSE RAFAEL WALKER Security Deaf/Hard Of Hearing Specialist Events No recent Security Events currently on file CRITERIA MET - [facility] - 2 Visits in 30 Days - Group Notification CARE PROVIDERS NATHALY ANTONY Physician Manager Field Service: Surgical 01/30/2019-Current PHONE: Unknown QI HAIR [facility] 10/31/2018-Current PHONE: [phone] WALDO GOODEN [facility] 12/05/2020-Current PHONE: Unknown JODY [facility] 08/04/2019- PHONE: [phone] Fuad has no Care Guidelines for this patient. Care History Medical/Surgical 10/31/2018 [facility] \T\middot;\T\nbsp; [facility] \T\middot;\T\nbsp; PLEASE REFER PATIENT TO [facility] FOR NON EMERGENT MEDICAL NEEDS. \T\middot;\ T\nbsp; [facility] CAN SEE PATIENTS SAME DAY FOR APTS IF PATIENT CALLS FIRST THING IN THE MORNING. E.D. VISIT COUNT (12 MO.) [facility] 4 [facility]. TOTAL 5 NOTE: Visits indicate total known visits. ED/UCC VISIT TRACKING (12 MO.) 12/11/2021 11:58 GARETT Mcadams [place] TYPE: Emergency COMPLAINT: - ALTERED LOC 12/02/2021 11:29 [facility] Nancy MESSINA TYPE: Emergency DIAGNOSES: - Low Blood Sugar (Symptomatic) - Type 2 diabetes mellitus with hypoglycemia without coma 04/24/2021 14:42 [facility]ETT [place]adams [place] TYPE: Emergency COMPLAINT: - ALTERED LOC 03/18/2021 10:49 GARETT Esteban TYPE: Emergency COMPLAINT: - SEIZURE SYMPTOMS DIAGNOSES: - Essential (primary) hypertension - Unspecified dementia without behavioral disturbance - Allergy status to narcotic agent - Allergy status to penicillin - Hypothyroidism, unspecified - Allergy status to sulfonamides - Other long distance billing operator (current) drug therapy - Epilepsy, unspecified, not intractable, without status epilepticus - Type 2 diabetes mellitus without complications 03/03/2021 18:40 [facility]ams [place] TYPE: Emergency COMPLAINT: - ALTERED MENTAL STATUS INPATIENT VISIT TRACKING (12 MO.) 04/24/2021 14:43 G[facility]ETT Mcadams [place] TYPE: Observation COMPLAINT: - DEMENTIA DIAGNOSES: - Personal history of transient ischemic attack (TIA), and cerebral infarction without residual deficits - Allergy status to other drugs, medicaments and biological substances - Allergy status to penicillin - Allergy status to narcotic agent - Essential (primary) hypertension - Other long distance billing operator (current) drug therapy - Ankylosing spondylitis of unspecified sites in spine - shelter (current) use of insulin - Unspecified dementia without behavioral disturbance - Epilepsy, unspecified, not intractable, without status epilepticus - Type 2 diabetes mellitus without complications - Allergy status to other antibiotic agents - Hormone replacement therapy - Disorientation, unspecified - Chronic pain syndrome - Allergy status to sulfonamides - Hypothyroidism, unspecified - Unspecified osteoarthritis, unspecified site 03/03/2021 18:41 [facility] [place]ams [place] TYPE: Observation [...] without complications - Allergy status to penicillin [email or web address]
--- NOTE | 2021-12-11 19:23 | NUR ---
TELEPHONE REPORT RECEIVED FROM ED RN BILL, QUESTIONS ANSWERED AND AWAITING pt's ARRIVAL TO [facility] FLOOR. PER SANTOSH, TRAUMA THERAPIST OR FLOAT RN TO BRING pt TO FLOOR.
--- NOTE | 2021-12-11 21:28 | NUR ---
PT ARRIVED TO [facility] AT 2030 AND MOVED OVER TO BED SBA WITH FLOAT KARISSA IVEY. WE BOOSTED THE PT IN BED AND PROVIDED WARM BLANKETS. VS TAKEN AND ENTERED. ORIENTED PT TO THE ROOM AND CALL LIGHT BUT HE IS VERY FORGETFULL. BED ALARM IS ON, PT REMINDED THAT BED ALARM IS ON FOR SAFETY. ADMINISTERED EVENING MEDICATIONS AND IV FLUID IS INFUSING. WRAPPED IV WITH COBAN. PROVIDED SUGAR FREE JELLO TO PT. HE DENIES FURTHER NEEDS AT THIS TIME. CALL LIGHT IS CLOSE.
--- NOTE | 2021-12-11 21:48 | NUR ---
PT CALL LIGHT ON, PT C/O OF LEFT FOOT FEELING "FROZEN", "NUMB", AND ASKED FOR ANOTHER JELLO, WILL BE IN WITH RN
--- NOTE | 2021-12-11 22:00 | NUR ---
RECENTLY IN FOR ACCU CHECK, PROVIDED FRESH WATER AND GREEN TEA, SF JELLO PROVIDED TO PT, PT ASSISTED WITH TV CHANNEL, NO FURTHER NEEDS AT THIS TIME
--- NOTE | 2021-12-11 22:02 | NUR ---
PT STATES HIS L GREAT TOE HURTS, HE CANNOT RECALL WHETHER OR NOT THIS IS CHRONIC. HE THEN EXPLAINS IT A COLD SENSATION THAT RUNS ACROSS HIS TOES. ADJUSTED PT'S SOCKS, HIS FEET ARE NOT COLD TO THE TOUCH AND PULSES ARE FINE. PT UNABLE TO ANSWER QUESTIONS ABOUT HEALTH HISTORY AND WHETHER OR NOT HE HAS NEUROPATHY. OFFERED TO ELEVATE HIS FEET AND OFFERED TYLENOL. PT DENIES BOTH SAYING HE DOES NOT KNOW IF ANYTHING WILL HELP. NOTIFIED PRIMARY RN. CABRERA ROSE REMAINS IN THE ROOM WITH PT.
--- NOTE | 2021-12-11 22:13 | NUR ---
IN ROOM TO COMPLETE ASSESSMENT, pt AWAKE AND RESTING IN BED. pt ABLE TO ANSWER QUESTIONS TO SELF, PLACE, DATE, AND TIME CORRECTLY. WHEN ASKING pt IF HE WAS ORIENTED TO HIS ROOM, pt STATES, "WHAT DOES THAT MEAN?". pt ASKED IF HE KNOWS WHERE HIS CALL LIGHT IS, pt STATES, "OH I DON'T KNOW WHERE ANYTHING IS". pt ORIENTED TO ROOM AND EDUCATED TO USE CALL LIGHT BEFORE GETTING OOB FOR SAFETY, pt THEN LAUGHS AND STATES, "TRY AND STOP ME". 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 pt LAUGHS AT HIS OWN JOKES. pt REPORTS 9/10 PAIN IN FOOT, pt INITIALLY SWITCHES BETWEEN LEFT AND RIGHT FOOT BUT THEN DECIDES IT IS HIS LEFT FOOT. NO DEFORMITY OR BLEED NOTED. pt DECLINED TYLENOL. pt REPORTS SOME NUMBNESS WELL. DR AKINS MADE AWARE OF THIS, NO NEW ORDERS. pt THEN TALKS ABOUT HIS DAUGHTER AND GRANDAUGHTERS AT HOME AND HOW HE "HAS TO BE GOOD" FOR THEM. BED ALARM REMAINS ON AND CALL LIGHT IN REACH. IV FLUIDS INFUSING DIRECTED, IV SITE WNL. PUPILS ROUND, EQUAL AND REACTIVE TO LIGHT. WILL MONITOR.
--- NOTE | 2021-12-11 23:47 | NUR ---
ROUNDED ON pt, pt AWAKE AND RESTING IN BED. DENIES NEEDS OR CONCERNS. CALL LIGHT IN REACH.
--- NOTE | 2021-12-12 01:40 | NUR ---
ROUNDED ON pt, PER KARISSA HENDRICKS pt WAS RECENTLY UP TO VOID AND HAD BM. UPON ENTERING ROOM, pt WAS AWAKE AND LAUGHING TV, SUGAR FREE SNACK PROVIDED- SANDY. BED ALARM REMAISN ON AND CALL LIGHT INR EACH. IV SITE WNL, FLUIDS INFUSING DIRECTED.
--- NOTE | 2021-12-12 03:19 | NUR ---
BED ALARM SOUNDED, PT SITTING AT THE EDGE OF THE BED. ASSISTED HIM TO RESTROOM AND BACK TO BED. HE URINATED AND HAD A BM. PROVIDED FRESH WATER. PT DENIES FURTHER NEEDS AT THIS TIME. CALL LIGHT IS CLOSE.
--- NOTE | 2021-12-12 03:30 | NUR ---
ROUNDED ON pt, pt AWAKE AND RESTING IN BED. BED ALARM ON. pt REPORTS NUMBNESS IN BLE, DECLINED TYLENOL. FLOAT RN UCHE TO PROVIDE WARM BLANKET.
--- NOTE | 2021-12-12 05:33 | NUR ---
ASSESSMENT COMPLETE, SCHEDULED THYROID MEDICATION GIVEN (SEE EMAR). pt CONTINUES TO REPORT NUMBNESS "INTO SECOND TOE". DIFFICULT TO DETERMINE IF NUMBNESS IS CHRONIC OR NOT pt HAS HX OF DIABETES AND pt IS POOR HISTORIAN. BED ALARM ON. pt A/O TO SELF, PLACE, DATE, AND TIME. pt JOKES WITH STAFF AND MAKES STATEMENTS LIKE "SEE I'M TESTING YOU" AFTER HE ANSWERS A QUESTION WRONG, BUT HE APPEARS TO KNOW THE CORRECT ANSWER AFTERWARDS. pt ALSO REPORTS DRY LIPS THAT'S GOTTEN "WORSE AND WORSE", PRN CHAPSTICK APPLIED. IV SITE WNL, FLUIDS INFUSING DIRECTED.
--- NOTE | 2021-12-12 06:49 | NUR ---
DR AKINS MADE AWARE OF pt's REPORT OF CONTINUED NUMBNESS IN BLE AND INTERMITTENTLY IN LIPS. VSS, NO NEW ORDERS RECEIVED AT THIS TIME.
--- NOTE | 2021-12-12 08:21 | NUR ---
PT. RESTING ON SIDE OF BED, BASELINE IS CONFUSION, INTERACTS WITH JOKING INAPPROPRIATELY, DIFFICULT TO ANSWER QUESTIONS. IVF INFUSING, ALL VSS, BG 120, ASSISTED WITH SLIGHT BLOODY NOSE, SCANT AMOUNT OF BLOOD, USING TISSUES, NO PRESSURE NEEDED, STOPPED QUICKLY. REORIENTED BUT PT. IS RESISTANT, CALL ANGULO REINSTRUCTED, BED ALARM ON AT ALL TIMES.
--- NOTE | 2021-12-12 10:28 | NUR ---
ASSISTED OOB TO CHAIR, STEADY ON HIS FEET WITH A FWW, SBA WITH IV POLE. HE WILL CALL FOR NEEDS BUT BED ALARM AND CHAIR ALARM AT ALL TIMES. NO MENTATION CHANGES HE IS FORGETFUL OFTEN AND JOKING ALOT. GOOD APPETITE, ADEQUATE LIQUIDS SO FAR. LIVES ALONE AT HOME.
[2021-12-12] MEDS ORDERED: DICLOFENAC SOD100 G1 TOP (10:37)
--- NOTE | 2021-12-12 12:03 | NUR ---
CONNECTED TODD PT IN [facility] AND FOLLOWED IN . PT ALERT, ORIENTED, BUT SAID HE COULD HEAR HIMSELF TALKING IN HIS HEAD. WOULD LIKE TO HAVE BROADCAST TRAFFIC COORDINATOR VISIT. I INFORMED FR OLIVEROS. PT REQUESTED I CHANGE HIS ELLIOTT PREFERENCE TO BAHAI. DID HE REQUESTED. GAVE BLESSING AND WILL FOLLOW
--- NOTE | 2021-12-12 12:15 | NUR ---
INTO PATIENT ROOM, PATIENT GRANDDAUGHTER FUENTES AT BEDSIDE. PATIENT AND GRANDDAUGHTER BOTH ENDORSE THAT HE LIVE AT HOME ALONE. FUENTES STATES SHE LIVES JUST DOWN THE STREET AND CHECKS ON THE PATIENT SEVERAL TIMES A DAY. PATIENT USE A WALKER AND CANE FOR MOBILITY. FUENTES STATES THAT THE PATIENT RECVS MEALS [facility] OR FAMILY ASSIST WITH MEAL PREP. PATIENT STATES HE FEELS SAFE DISCHARGING TO HIS HOME BY HIMSELF AND FUENTES AGREES WITH THAT PLAN. ADVISED PATIENT AND FUENTES TO CONTACT CASE MANAGEMENT IF ANY NEEDS ARISE.
--- NOTE | 2021-12-12 12:20 | NUR ---
OOB IN CHAIR, CHAIR ALARM ON, AMBULATED WITH OT AROUND HALLS X 2 WITHOUT FWW, STEADY ON HIS FEET. 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
--- NOTE | 2021-12-12 19:53 | NUR ---
pt was walking around his room when I arrived. IVF completed. Pt saline locked. Is on his phone. Went into BR. Able to manage all aspects of tolieting.
--- NOTE | 2021-12-12 21:35 | NUR ---
REMAINS SITTING UP IN CHAIR. HAS EYES CLOSED BUT IS AWAKE. STATES HE DOES NOT WANT TO GET INTO BED YET.
--- NOTE | 2021-12-12 22:30 | NUR ---
Pt into bed. Warm blanket given for c/o cold feet. Fresh water given. Denies any other needs.
--- NOTE | 2021-12-13 01:27 | NUR ---
PT CURRENTLY APPEARS ASLEEP. RESPIRATIONS EVEN AND UNLABORED
--- NOTE | 2021-12-13 03:42 | NUR ---
PT APPEARS ASLEEP. RESPIRATIONS EVEN AND UNLABORED.
--- NOTE | 2021-12-13 05:54 | NUR ---
UNEVENTFUL SHIFT. UP IN CHAIR WHEN NOT ASLEEP. DENIES ANY SOB, DIZZINESS, NAUSEA, CP.
--- NOTE | 2021-12-13 07:16 | NUR ---
REPORT RECEIVED FROM KARISSA COREY. PT UP TO CHAIR, ALERT AND OREINTED. PT REPORTING HE IS HOPING TO GO HOME TODAY AND IS ANTCIPATING BREAKFAST. PT REPORTS 8/10 BACK PAIN AND REQUESTS TYELNOL WITH MORNING MEDICATIONS. CHAIR ALARM PLACED. NO ADDITIONAL REQUESTS OR COMPLAINTS. CALL LIGHT WITHIN REACH.
--- NOTE | 2021-12-13 07:37 | NUR ---
MORNING ASSESSMENT AND MEDICATION DUE. PT REMAINS UP TO CHAIR. PT REPORTS 6/10 UPPER BACK AND NECK PAIN "I GET THIS ALL THE TIME AT HOME." PT REPORTS HE TAKES TYLENOL AT HOME "ONCE A WEEK OR SO" AND REQUESTS TYELNOL NOW. SEE MAR FOR MEDIATION GIVEN. IV PRESENT IN RIGHT FORARM. FLUSHED AND INFILTRATION NOTED. IV DC'D PER PROTOCOL, GAZUE AND COBAN APPLIED. TIP INTACT. MESSAGE SENT TO MED REGARDING NEED FOR IV IS LIKELY TO TRANSITION TO PO MEDICATIONS. PT FOLLOWS DIRECTIONS WELL. PT ORIENTED TO ALL BUT YEAR AND EVENTS, UNSURE WHY HE IS IN THE HOSPITAL. PT REORIENTED AND IS ABLE TO REPEAT BACK INFORMATION HE WAS TOLD. LIMITED ROM NOTED IN RIGHT ARM AND SHOULDER. PT UNABLE TO SHRUGG SHOULDER OR LIFT ARM PAST 90 DEGREES. PT REPORTS THIS IS BASELINE FROM A PAST INJURY. LUNG SOUNDS CLEAR. NO COUGH NOTED AT THIS TIME. PT 100% ON ROOM AIR. HEART MURMUR HEARD. HEART TONES REGULAR AT THIS TIME. ABDOMEN SOFT, BOWEL TONES ACTIVE. LARGE RIGHT UPPER QUADRANT HERNIA NOTED. PT REMAINS UP TO CHAIR. CALL LIGHT WITHIN REACH. CHAIR ALARM ON.
--- NOTE | 2021-12-13 09:51 | NUR ---
THIS RN TO ROOM TO CHECK ON PT. PT FINISHED WITH SHOWER AND BACK TO CHAIR. PT REPORTS PAIN IN BACK/NECK IS NOW 09/01. PT UPDATED ON PLAN OF CARE. MD STATES OK TO LEAVE IV OUT AT THIS TIME. PT REPORTS HE WILL CALL HIS DAUGHTER TO UPDATE HER. PT MILDLY CONFUSED AT TIMES AND NEEDS REMINDERS, FOLLOWING DIRECTIONS WELL AND REPEATS BACK INFORMATION. NO ADDITIONAL REQUESTS OR COMPLAINTS. CALL LIGHT WITHIN REACH. BED RAILS UP.
--- NOTE | 2021-12-13 11:07 | NUR ---
THIS RN TO ROOM TO CHECK ON PT. PT REMAINS UP TO CHAIR. REQUESTS A SNACK, JELLO AND ADDITIONAL COFFEE PROVIDED. PT REPORTS PAIN TO BACK AND NECK REMAINS WELL CONTROLS 2/10 AT THIS TIME. NO ADDITIONAL REQUESTS OR COMPLAINTS. CALL LIGHT WITHIN REACH. BED RAILS UP.
--- NOTE | 2021-12-13 11:58 | NUR ---
THIS RN TO ROOM TO CHECK ON PT. PT UP TO CHAIR FOR LUNCH. PT TALKING WITH FAMILY ON PHONE. PT CONTINUES TO REPORT PAIN IN NECK/BACK IS "JUST FINE." PT DENIES NEED FOR ADDITIONAL PAIN MEDICATION. NO INSULIN NEEDED. PT UPDATED ON PLAN OF CARE. PT UPDATES HIS SISTER, ABLE TO REPEAT BACK INFORMATION. NO ADDITIONAL REQUESTS OR COMPLAINTS. CALL LIGHT WITHIN REACH. CHAIR ALARM ON.
[2021-12-13] MEDS ORDERED: CEFPODOXIME PR200 MG PO (12:58)
--- NOTE | 2021-12-13 13:05 | NUR ---
DR AKINS TO BEDSIDE. DISCHARGE ORDERS GIVEN. PT REMEMBERS PIECES OF WHAT WAS REVIEWED WITH HIM BUT HAS DIFFICULTY REMEMBERING ALL DIRECTIONS. DISCHRAGE INSTRUCTIONS REVIEWED WITH PT. PACKET SENT WITH PT. PTS GRANDDAUGHTER, FUENTES CALLED AND DISCHARGE INSTRUCTIONS REVIEWED IN DETAIL WITH HER. FUENTES VERBALIZES UNDERSTANDING OF INSTRUCTIONS, MEDICATIONS AND FOLLOW AND STATES HER QUESTIONS HAVE BEEN ANSWERED. PT DRESSED WITH 1 PERSON ASSIST. PT TRANSFERES SELF TO WHEELCHAIR AND IS WHEELED FROM MED/SURG TO MEET FRIENDS WHO ARE TAKING HIM HOME. NO ADDITIONAL REQUESTS OR CONCERNS.
== END 2021-12-13 13:10 | disposition home or self-care (01) | DRG 178 ==
LOC: ED 11:57 → MS 19:04
PROVIDERS: ADMIT Internal Medicine; ATTEND Internal Medicine
DX: J15.6 Pneumonia due to other Gram-negative bacteria (principal); D68.61 Antiphospholipid syndrome; Z20.822 Contact with and (suspected) exposure to COVID-19; E04.1 Nontoxic single thyroid nodule; I10 Essential (primary) hypertension; I25.10 Atherosclerotic heart disease of native coronary artery without angina pectoris; E11.9 Type 2 diabetes mellitus without complications; R09.02 Hypoxemia; G30.9 Alzheimer's disease, unspecified; G40.909 Epilepsy, unspecified, not intractable, without status epilepticus; F02.80 Dementia in other diseases classified elsewhere, unspecified severity, without behavioral disturbance, psychotic disturbance, mood disturbance, and anxiety; Z96.641 Presence of right artificial hip joint; Z96.651 Presence of right artificial knee joint; Z86.73 Personal history of transient ischemic attack (TIA), and cerebral infarction without residual deficits; Z87.19 Personal history of other diseases of the digestive system; Z98.890 Other specified postprocedural states; Z88.0 Allergy status to penicillin; Z88.2 Allergy status to sulfonamides; Z88.5 Allergy status to narcotic agent; Z88.8 Allergy status to other drugs, medicaments and biological substances; Z79.4 Long term (current) use of insulin; Z79.899 Other long term (current) drug therapy
CPT/HCPCS: 36415; 70450; 70496; 70498; 71045; 80048; 80053; 80177; 81001; 83036; 83605; 83735; 85025; 87040; 87070; 87205; 97161; 97165; 99285-25; A9270; C9803; G0480; J0696; J1815; J7030; J7121; Q9967; U0003

== ENCOUNTER 2022-01-14 18:21 | Emergency (ER) | payer MEDICARE, OTHER ==
[~2022-01-14] VITALS: Ht 175.3 cm; Wt 90.7 kg
--- NOTE | ~2022-01-14 | EKG ---
[facility] [address] [facility] [place], [place] [address] Draft EK completed, results pending confirmation PATIENT NAME: DENISEJOSE RAFAELPASCUAL LITTLE Electrocardiogram DATE OF : 50 PHYSICIAN: PRELIMINARY REPORT #: [id number] REPORT IS CONFIDENTIAL AND NOT TO BE RELEASED WITHOUT AUTHORIZATION
[~2022-01-14 18:21] MED LIST changes: +CEFPODOXIME PR200 MG PO; +DICLOFENAC SOD100 G1 TOP
--- OUTSIDE RECORDS SUMMARY | 2022-01-14 18:24 | XMS ---
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 08/04/2019-[facility] PHONE: [phone] Fuad has no Care Guidelines for this patient. Care History Medical/Surgical 10/31/2018 [facility] \T\middot;\T\nbsp; PATIENT- JODY ELIGIBLE \T\middot;\T\nbsp; PLEASE REFER PATIENT TO [facility] FOR NON EMERGENT MEDICAL NEEDS. \T\middot;\ T\nbsp; [facility] CAN SEE PATIENTS SAME DAY FOR APTS IF PATIENT CALLS FIRST THING IN THE MORNING. E.D. VISIT COUNT (12 MO.) 1 [facility] Nancy Damon [address] [place] [address] TOTAL 6 NOTE: Visits indicate total known visits. ED/UCC VISIT TRACKING (12 MO.) 01/14/2022 18:21 [facility] [place] Lilly Gottlieb [place] TYPE: Emergency COMPLAINT: - SEIZURE 12/11/2021 11:58 [facility] [place] COMPLAINT: - ALTERED LOC 12/02/2021 11:29 [facility] Nelson MESSINA TYPE: Emergency DIAGNOSES: - Low Blood Sugar (Symptomatic) - Type 2 diabetes mellitus with hypoglycemia without coma 04/24/2021 14:[address] [facility] [address] TYPE: Emergency COMPLAINT: - ALTERED LOC 03/18/2021 10:49 [facility] Mcadams [place] TYPE: Emergency COMPLAINT: - SEIZURE SYMPTOMS DIAGNOSES: - Essential (primary) hypertension - Unspecified dementia without behavioral disturbance - Allergy status to narcotic agent - Allergy status to penicillin - Hypothyroidism, unspecified - Allergy status to sulfonamides - Other continuous churn buttermaker (current) drug therapy - Epilepsy, unspecified, not intractable, without status epilepticus - Type 2 diabetes mellitus without complications 03/03/2021 18:40 [facility] [place] TYPE: Emergency COMPLAINT: - ALTERED MENTAL STATUS INPATIENT VISIT TRACKING (12 MO.) 12/11/2021 19:04 [facility]ETT [place]adams [place] TYPE: Medical Surgical COMPLAINT: - PNA DIAGNOSES: - Antiphospholipid syndrome - Alzheimer's disease, unspecified - Allergy status to sulfonamides - Atherosclerotic heart disease of [place] coronary artery without angina pectoris - Pneumonia, unspecified organism - Epilepsy, unspecified, not intractable, without status epilepticus - Hypoxemia - Other specified postprocedural states - Dementia in other diseases classified elsewhere without behavioral disturbance - Other continuous churn buttermaker (current) drug therapy - Presence of right artificial knee joint - Essential (primary) hypertension - Personal history of other diseases of the digestive system - Personal history of transient ischemic attack (TIA), and cerebral infarction without residual deficits - Allergy status to other drugs, medicaments and biological substances - Allergy status to narcotic agent - Nontoxic single thyroid nodule - alf (current) use of insulin - Presence of right artificial hip joint - Contact with and (suspected) exposure to COVID-19 - Allergy status to penicillin - Type 2 diabetes mellitus without complications - Pneumonia due to other Gram-negative bacteria 04/24/2021 14:43 [facility] [place] TYPE: Observation COMPLAINT: - DEMENTIA DIAGNOSES: - Contact with and (suspected) exposure to COVID-19 - Allergy status to other drugs, medicaments and biological substances - Allergy status to penicillin - Allergy status to narcotic agent - Essential (primary) hypertension - Other continuous churn buttermaker (current) drug therapy - Ankylosing spondylitis of unspecified sites in spine - terminal worker (current) use of insulin - Unspecified dementia without behavioral disturbance - Personal history of transient ischemic attack (TIA), and cerebral infarction without residual deficits - Epilepsy, unspecified, not intractable, without status [...] other drugs, medicaments and biological substances - Contact with and (suspected) exposure to COVID-19 - Antiphospholipid syndrome - Hypothyroidism, unspecified - Allergy status to narcotic agent - Cervicalgia - Syncope and collapse - Epilepsy, unspecified, not intractable, without status epilepticus - Type 2 diabetes mellitus without complications - Allergy status to penicillin [email or web address]
== END 2022-01-14 23:41 | disposition home or self-care (01) ==
LOC: ED 18:21
DX: G40.909 Epilepsy, unspecified, not intractable, without status epilepticus (principal); E11.9 Type 2 diabetes mellitus without complications; E03.9 Hypothyroidism, unspecified; I10 Essential (primary) hypertension; Z88.0 Allergy status to penicillin; Z88.5 Allergy status to narcotic agent; Z88.2 Allergy status to sulfonamides; Z79.899 Other long term (current) drug therapy
CPT/HCPCS: 36415; 70450; 71045; 80053; 80177; 82140; 83690; 83735; 84484; 85025; 93005; 93010; 96361; 96374; 96375; 99284-25; G0480; J2060; J3411; J7030

== ENCOUNTER 2022-01-28 12:32 | Emergency (ER) | payer MEDICARE, OTHER ==
[~2022-01-28] VITALS: Ht 175.3 cm; Wt 90.7 kg
--- NOTE | ~2022-01-28 | EKG ---
[facility] [address] [facility] [place], [place] [address] Draft EK completed, results pending confirmation PATIENT NAME: DENISEJOSE RAFAELPASCUAL LITTLE Electrocardiogram DATE OF : 50 PHYSICIAN: PRELIMINARY REPORT #: [id number] REPORT IS CONFIDENTIAL AND NOT TO BE RELEASED WITHOUT AUTHORIZATION
--- OUTSIDE RECORDS SUMMARY | 2022-01-28 12:34 | XMS ---
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 Care History Medical/Surgical 10/31/2018 [facility] \T\middot;\T\nbsp; [facility] \T\middot;\T\nbsp; PLEASE REFER PATIENT TO [facility] FOR NON EMERGENT MEDICAL NEEDS. \T\middot;\ T\nbsp; [facility] CAN SEE PATIENTS SAME DAY FOR APTS IF PATIENT CALLS FIRST THING IN THE MORNING. E.D. VISIT COUNT (12 MO.) [address] [facility] Nancy Damon [address] [place] [address]. TOTAL 7 NOTE: Visits indicate total known visits. ED/UCC VISIT TRACKING (12 MO.) 01/28/2022 12:32 [facility] [place] Lilly Gottlieb [place] TYPE: Emergency COMPLAINT: - HEADACHE 01/14/2022 18:[address] [facility] [place]rie Gottlieb [place] TYPE: Emergency COMPLAINT: - SEIZURE DIAGNOSES: - Type 2 diabetes mellitus without complications - Allergy status to penicillin - Epilepsy, unspecified, not intractable, without status epilepticus - Other long-term (current) drug therapy - Allergy status to sulfonamides - Allergy status to narcotic agent - Hypothyroidism, unspecified - Essential (primary) hypertension 12/11/2021 11:[address] [facility] [place] [place] TYPE: Emergency COMPLAINT: - ALTERED LOC 12/02/2021 11:29 [facility] Nancy MESSINA TYPE: Emergency DIAGNOSES: - Low [...] - Allergy status to sulfonamides - Other watermaster (current) drug therapy - Epilepsy, unspecified, not [...] to sulfonamides - Atherosclerotic heart disease of [place] coronary artery without angina pectoris - Pneumonia, unspecified organism - Epilepsy, unspecified, not intractable, without status epilepticus - Hypoxemia - Other specified postprocedural states - Dementia in other diseases classified elsewhere without behavioral disturbance - Other watermaster (current) drug therapy - Presence of right artificial knee joint - Essential (primary) hypertension - Personal history of other diseases of the digestive system - Personal history of transient ischemic attack (TIA), and cerebral infarction without residual deficits - Allergy status to other drugs, medicaments and biological substances - Allergy status to narcotic agent - Nontoxic single thyroid nodule - continuous churn buttermaker (current) use of insulin - Presence of [...] agent - Essential (primary) hypertension - Other long-term (current) drug therapy - Ankylosing spondylitis of unspecified sites in spine - continuous churn buttermaker (current) use of insulin - Unspecified dementia [...] - Unspecified osteoarthritis, unspecified site 03/03/2021 18:[address] [facility] [place] [...] without complications - Allergy status to penicillin [email or web address]
== END 2022-01-28 16:15 | disposition home or self-care (01) ==
LOC: ED 12:32
DX: E11.649 Type 2 diabetes mellitus with hypoglycemia without coma (principal); E03.9 Hypothyroidism, unspecified; I10 Essential (primary) hypertension; Z88.0 Allergy status to penicillin; Z88.5 Allergy status to narcotic agent; Z88.2 Allergy status to sulfonamides; Z88.8 Allergy status to other drugs, medicaments and biological substances; Z79.899 Other long term (current) drug therapy
CPT/HCPCS: 36415; 80053; 85025; 93005; 93010; 99285-25

== ENCOUNTER 2022-02-03 04:15 | Emergency (ER) | payer MEDICARE, OTHER ==
[~2022-02-03] VITALS: Ht 175.3 cm; Wt 90.7 kg
--- OUTSIDE RECORDS SUMMARY | 2022-02-03 04:19 | XMS ---
PreManage Notification: JOSE RAFAEL WALKER Security Manager Of Security Events No recent Security Events currently on file CRITERIA MET - Group Notification - [facility] - 2 Visits in 30 Days CARE PROVIDERS NATHALY ANTONY Physician Advertising Solicitor: Surgical 01/30/2019-Current PHONE: Unknown QI HAIR [facility] 10/31/2018-Current PHONE: [phone] WALDO GOODEN [facility] 12/05/2020-Current PHONE: Unknown JODY [facility] 08/04/2019-[facility] PHONE: [phone] Fuad has no Care Guidelines for this patient. Care History Medical/Surgical 10/31/2018 [facility] \T\middot;\T\nbsp; [facility] \T\middot;\T\nbsp; PLEASE REFER PATIENT TO [facility] FOR NON EMERGENT MEDICAL NEEDS. \T\middot;\ T\nbsp; [facility] CAN SEE PATIENTS SAME DAY FOR APTS IF PATIENT CALLS FIRST THING IN THE MORNING. E.D. VISIT COUNT (12 MO.) 1 [facility] Nancy Damon [address] [place] [address]. TOTAL 8 NOTE: Visits indicate total known visits. ED/UCC VISIT TRACKING (12 MO.) 02/03/2022 04:[address] [facility] Gottlie[facility] [place] TYPE: Emergency COMPLAINT: - BLOOD SUGAR PROBLEM 01/28/2022 12:32 [facility] HKerrie Gottlieb [place] TYPE: Emergency COMPLAINT: - HEADACHE DIAGNOSES: - Allergy status to penicillin - Other deboning team leader (current) drug therapy - Essential (primary) hypertension - Allergy status to narcotic agent - Type 2 diabetes mellitus without complications - Type 2 diabetes mellitus with hypoglycemia without coma - Allergy status to sulfonamides - Hypoglycemia, unspecified - Allergy status to other drugs, medicaments and biological substances - Hypothyroidism, unspecified 01/14/2022 18:[address] [facility] [address] [facility] Gott[facility] [place] TYPE: Emergency COMPLAINT: - SEIZURE DIAGNOSES: - Type 2 diabetes mellitus without complications - Allergy status to penicillin - Epilepsy, unspecified, not intractable, without status epilepticus - Other skilled nursing (current) drug therapy - Allergy status to sulfonamides - Allergy status to narcotic agent - Hypothyroidism, unspecified - Essential (primary) hypertension 12/11/2021 11:58 [facility] Mcadams [place] TYPE: Emergency COMPLAINT: - ALTERED LOC 12/02/2021 11:29 [facility] Nelson MESSINA TYPE: Emergency DIAGNOSES: - Low [...] - Allergy status to sulfonamides - Other skilled nursing (current) drug therapy - Epilepsy, unspecified, not [...] to sulfonamides - Atherosclerotic heart disease of [place] coronary artery without angina pectoris - Pneumonia, unspecified organism - Epilepsy, unspecified, not intractable, without status epilepticus - Hypoxemia - Other specified postprocedural states - Dementia in other diseases classified elsewhere without behavioral disturbance - Other deboning team leader (current) drug therapy - Presence of right artificial knee joint - Essential (primary) hypertension - Personal history of other diseases of the digestive system - Personal history of transient ischemic attack (TIA), and cerebral infarction without residual deficits - Allergy status to other drugs, medicaments and biological substances - Allergy status to narcotic agent - Nontoxic single thyroid nodule - FPC (current) use of insulin - Presence of [...] agent - Essential (primary) hypertension - Other skilled nursing (current) drug therapy - Ankylosing spondylitis of unspecified sites in spine - FPC (current) use of insulin - Unspecified dementia [...] without complications - Allergy status to penicillin [email or web address]
== END 2022-02-03 06:19 | disposition home or self-care (01) ==
LOC: ED 04:15
DX: E87.1 Hypo-osmolality and hyponatremia (principal); E86.0 Dehydration; E11.9 Type 2 diabetes mellitus without complications; M19.90 Unspecified osteoarthritis, unspecified site; E03.9 Hypothyroidism, unspecified; I10 Essential (primary) hypertension; Z88.0 Allergy status to penicillin; Z88.5 Allergy status to narcotic agent; Z88.2 Allergy status to sulfonamides; Z88.1 Allergy status to other antibiotic agents; Z79.899 Other long term (current) drug therapy
CPT/HCPCS: 80053; 81001; 83735; 85025; 96360; 99284-25; J7030

== ENCOUNTER 2022-03-08 07:55 | Emergency (ER) | payer MEDICARE, OTHER ==
[~2022-03-08] VITALS: Ht 175.3 cm; Wt 96.1 kg
--- NOTE | ~2022-03-08 | EKG ---
[facility] [address] [facility] [place], [place] [address] Draft EK completed, results pending confirmation PATIENT NAME: DENISEJOSE RAFAEL Electrocardiogram DATE OF : 50 PHYSICIAN: PRELIMINARY REPORT #: [id number] REPORT IS CONFIDENTIAL AND NOT TO BE RELEASED WITHOUT AUTHORIZATION
--- OUTSIDE RECORDS SUMMARY | 2022-03-08 08:01 | XMS ---
PreManage Notification: JOSE RAFAEL WALKER Security Deputy Felony Clerk Events No recent Security Events currently on file CRITERIA MET - Group Notification - 6 ED Visits in 6 Months CARE PROVIDERS NATHALY ANTONY Physician Tuber Machine Cutter: Surgical 01/30/2019-Current PHONE: Unknown QI HAIR [facility] 10/31/2018-Current PHONE: [phone] WALDO GOODEN [facility] 12/05/2020-Current PHONE: Unknown JODY [facility] 08/04/2019-[facility] PHONE: [phone] Fuad has no Care Guidelines for this patient. Care History Medical/Surgical 10/31/2018 [facility] \T\middot;\T\nbsp; [facility] \T\middot;\T\nbsp; PLEASE REFER PATIENT TO [facility] FOR NON EMERGENT MEDICAL NEEDS. \T\middot;\ T\nbsp; [facility] CAN SEE PATIENTS SAME DAY FOR APTS IF PATIENT CALLS FIRST THING IN THE MORNING. E.Heriberto VISIT COUNT (12 MO.) 1 [facility] Nancy Damon [address] [place] [address] TOTAL 8 NOTE: Visits indicate total known visits. ED/UCC VISIT TRACKING (12 MO.) 03/08/2022 07:55 [facility]adams [place] TYPE: Emergency COMPLAINT: - CHEST PAIN 02/03/2022 04:15 [facility]adams [place] TYPE: Emergency COMPLAINT: - BLOOD SUGAR PROBLEM DIAGNOSES: - Hypothyroidism, unspecified - Allergy status to penicillin - Hypo-osmolality and hyponatremia - Essential (primary) hypertension - Allergy status to other antibiotic agents - Dehydration - Allergy status to sulfonamides - Other detention (current) drug therapy - Type 2 diabetes mellitus without complications - Allergy status to narcotic agent - Unspecified osteoarthritis, unspecified site 01/28/2022 12:32 [facility] [place] TYPE: Emergency COMPLAINT: - HEADACHE DIAGNOSES: - Allergy status to penicillin - 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 - Essential (primary) hypertension - Allergy status to narcotic agent - Type 2 diabetes mellitus without complications - Type 2 diabetes mellitus with hypoglycemia without coma - Allergy status to sulfonamides - Hypoglycemia, unspecified - Allergy status to other drugs, medicaments and biological substances - Hypothyroidism, unspecified 01/14/2022 18:21 [facility] [place] TYPE: Emergency COMPLAINT: - SEIZURE DIAGNOSES: - Type 2 diabetes mellitus without complications - Allergy status to penicillin - Epilepsy, unspecified, not intractable, without status epilepticus - Other detention (current) drug therapy - Allergy status to sulfonamides - Allergy status to narcotic agent - Hypothyroidism, unspecified - Essential (primary) hypertension 12/11/2021 11:58 [facility] [place] TYPE: Emergency COMPLAINT: - ALTERED LOC 12/02/2021 11:29 [facility] Nelson MESSINA TYPE: Emergency DIAGNOSES: - Low [...] - Allergy status to sulfonamides - 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 - Epilepsy, unspecified, not intractable, without status epilepticus - Type 2 diabetes mellitus without complications INPATIENT VISIT TRACKING (12 MO.) 12/11/2021 19:04 [facility]adams [place] TYPE: Medical Surgical COMPLAINT: - PNA DIAGNOSES: - Antiphospholipid syndrome - Alzheimer's disease, unspecified - Allergy status to sulfonamides - Atherosclerotic heart disease of [place] coronary artery without angina pectoris - Pneumonia, unspecified organism - Epilepsy, unspecified, not intractable, without status epilepticus - Hypoxemia - Other specified postprocedural states - Dementia in other diseases classified elsewhere without behavioral disturbance - Other detention (current) drug therapy - Presence of right artificial knee joint - Essential (primary) hypertension - Personal history of other diseases of the digestive system - Personal history of transient ischemic attack (TIA), and cerebral infarction without residual deficits - Allergy status to other drugs, medicaments and biological substances - Allergy status to narcotic agent - Nontoxic single thyroid nodule - intermodal owner 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
== END 2022-03-08 12:01 | disposition home or self-care (01) ==
LOC: ED 07:55
DX: R07.9 Chest pain, unspecified (principal); E11.9 Type 2 diabetes mellitus without complications; I10 Essential (primary) hypertension; E03.9 Hypothyroidism, unspecified; Z88.0 Allergy status to penicillin; Z88.5 Allergy status to narcotic agent; Z88.2 Allergy status to sulfonamides; Z88.8 Allergy status to other drugs, medicaments and biological substances
CPT/HCPCS: 36415; 71045; 80053; 83735; 84484; 85025

== ENCOUNTER 2022-05-01 08:29 | Emergency (ER) | payer MEDICARE, OTHER ==
[~2022-05-01] VITALS: Ht 175.3 cm; Wt 91.2 kg
--- OUTSIDE RECORDS SUMMARY | 2022-05-01 08:32 | XMS ---
PreManage Notification: JOSE RAFAEL WALKER Security Benefit Authorizer Events No recent Security Events currently on file CRITERIA MET - 6 ED Visits in 6 Months - Group Notification CARE PROVIDERS NATHALY ANTONY Physician Pediatric Lpn: Surgical 01/30/2019-Current PHONE: Unknown QI HAIR [facility] 10/31/2018-Current PHONE: [phone] WALDO GOODEN [facility] 12/05/2020-Current PHONE: Unknown JODY [facility] 08/04/2019-[facility] PHONE: [phone] Fuad has no Care Guidelines for this patient. Care History Medical/Surgical 10/31/2018 [facility] \T\middot;\T\nbsp; PATIENT- [facility] ELIGIBLE \T\middot;\T\nbsp; PLEASE REFER PATIENT TO [facility] FOR NON EMERGENT MEDICAL NEEDS. \T\middot;\ T\nbsp; [facility] CAN SEE PATIENTS SAME DAY FOR APTS IF PATIENT CALLS FIRST THING IN THE MORNING. EHilario VISIT COUNT (12 MO.) 1 [facility] Nancy Damon [address] [place] [address] TOTAL 7 NOTE: Visits indicate total known visits. ED/UCC VISIT TRACKING (12 MO.) 05/01/2022 08:[address] [facility] Gottlieb [place] TYPE: Emergency COMPLAINT: - ABD PAIN 03/08/2022 07:55 G[facility]ETT Quinterosnimesh MoreiraKerrie Gottlieb [place] TYPE: Emergency COMPLAINT: - CHEST PAIN DIAGNOSES: - Allergy status to other drugs, medicaments and biological substances - Allergy status to narcotic agent - Allergy status to penicillin - Hypothyroidism, unspecified - Type 2 diabetes mellitus without complications - Chest pain, unspecified - Essential (primary) hypertension - Allergy status to sulfonamides 02/03/2022 04:15 [facility]adams [place] TYPE: Emergency COMPLAINT: - BLOOD SUGAR PROBLEM DIAGNOSES: - Allergy status to narcotic agent - Hypothyroidism, unspecified - Other computer terminal operator (current) drug therapy - Dehydration - Essential (primary) hypertension - Unspecified osteoarthritis, unspecified site - Allergy status to penicillin - Type 2 diabetes mellitus without complications - Allergy status to sulfonamides - Allergy status to other antibiotic agents - Hypo-osmolality and hyponatremia 01/28/2022 12:32 [facility] [place] TYPE: Emergency COMPLAINT: - HEADACHE DIAGNOSES: - Hypothyroidism, unspecified - Allergy status to penicillin - Hypoglycemia, unspecified - Type 2 diabetes mellitus with hypoglycemia without coma - Allergy status to narcotic agent - Other senior care (current) drug therapy - Allergy status to other drugs, medicaments and biological substances - Allergy status to sulfonamides - Type 2 diabetes mellitus without complications - Essential (primary) hypertension 01/14/2022 18:21 [facility] [place] TYPE: Emergency COMPLAINT: - SEIZURE DIAGNOSES: - Type 2 diabetes mellitus without complications - Essential (primary) hypertension - Allergy status to narcotic agent - Other senior care (current) drug therapy - Allergy status to penicillin - Hypothyroidism, unspecified - Allergy status to sulfonamides - Epilepsy, unspecified, not intractable, without status epilepticus 12/11/2021 11:58 [facility]adams [place] TYPE: Emergency COMPLAINT: - ALTERED LOC 12/02/2021 11:29 [facility] Fernando MESSINA TYPE: Emergency DIAGNOSES: - Low Blood Sugar (Symptomatic) - Type 2 diabetes mellitus with hypoglycemia without coma INPATIENT VISIT TRACKING (12 MO.) 12/11/2021 19:04 [facility]T Mcadams [place] TYPE: Medical Surgical COMPLAINT: - PNA DIAGNOSES: - Allergy status to other drugs, medicaments and biological substances - Personal history of other diseases of the digestive system - Other specified postprocedural states - Nontoxic single thyroid nodule - Other computer terminal operator (current) drug therapy - Presence of right artificial hip joint - Allergy status to sulfonamides - Essential (primary) hypertension - Allergy status to penicillin - Pneumonia, unspecified organism - Personal history of transient ischemic attack (TIA), and cerebral infarction without residual deficits - Pneumonia due to other Gram-negative bacteria - Hypoxemia - Allergy status to narcotic agent - Dementia in other diseases classified elsewhere without behavioral disturbance - longterm (current) use of insulin - Alzheimer's disease, unspecified - Presence of right artificial knee joint - Contact with and (suspected) exposure to COVID-19 - Atherosclerotic heart disease of [place] coronary artery without angina pectoris - Antiphospholipid syndrome - Type 2 diabetes mellitus without complications - Epilepsy, unspecified, not intractable, without status epilepticus [id number]
[2022-05-01] MEDS ORDERED: HYDROCODON-ACE1 EA10 PO (14:52)
== END 2022-05-01 15:04 | disposition home or self-care (01) ==
LOC: ED 08:29
DX: E11.649 Type 2 diabetes mellitus with hypoglycemia without coma (principal); K46.9 Unspecified abdominal hernia without obstruction or gangrene; F03.90 Unspecified dementia, unspecified severity, without behavioral disturbance, psychotic disturbance, mood disturbance, and anxiety; Z88.6 Allergy status to analgesic agent; Z88.1 Allergy status to other antibiotic agents; Z88.5 Allergy status to narcotic agent; Z88.0 Allergy status to penicillin; Z88.2 Allergy status to sulfonamides; Z88.8 Allergy status to other drugs, medicaments and biological substances; Z79.899 Other long term (current) drug therapy; Z79.01 Long term (current) use of anticoagulants
CPT/HCPCS: 36415; 74177; 76705; 80053; 81001; 82247; 83605; 83690; 85025; 85610; J2405; J3010; Q9967

== ENCOUNTER 2022-06-04 09:25 | Emergency (ER) | payer MEDICARE, OTHER ==
[~2022-06-04] VITALS: Ht 175.3 cm; Wt 91.7 kg
[~2022-06-04 09:25] MED LIST changes: +HYDROCODON-ACE1 EA10 PO
--- OUTSIDE RECORDS SUMMARY | 2022-06-04 09:28 | XMS ---
PreManage Notification: JOSE RAFAEL WALKER Security Mechanical Manager Events No recent Security Events currently on file CRITERIA MET - Group Notification - 6 ED Visits in 6 Months - [facility] - 2 Visits in 30 Days CARE PROVIDERS NATHALY ANTONY Physician Exit Booth Agent: Surgical 01/30/2019-Current PHONE: Unknown QI HAIR [facility] 10/31/2018-Current PHONE: [phone] WALDO GOODEN [facility] 12/05/2020-[facility]: [facility] PHONE: [phone] Fuad has no Care Guidelines for this patient. Care History Medical/Surgical 10/31/2018 [facility] \T\middot;\T\nbsp; [facility] \T\middot;\T\nbsp; PLEASE REFER PATIENT TO [facility] FOR NON EMERGENT MEDICAL NEEDS. \T\middot;\ T\nbsp; [facility] CAN SEE PATIENTS SAME DAY FOR APTS IF PATIENT CALLS FIRST THING IN THE MORNING. EKerrieD. VISIT COUNT (12 MO.) [address] Nancy Damon 8 [facility]. TOTAL 9 NOTE: Visits indicate total known visits. ED/UCC VISIT TRACKING (12 MO.) 06/04/2022 09:26 [facility]T [facility]adams [place] TYPE: Emergency COMPLAINT: - HEAD PAIN 05/11/2022 20:52 [facility]adams [place] TYPE: Emergency COMPLAINT: - ABD PAIN DIAGNOSES: - Allergy status to narcotic agent - Other care provider (current) drug therapy - Type 2 diabetes mellitus without complications - Hormone replacement therapy - Obstruction of bile duct - Allergy status to other drugs, medicaments and biological substances - Unspecified abdominal pain - Allergy status to penicillin - Presence of right artificial hip joint - Contact with and (suspected) exposure to COVID-19 - Allergy status to sulfonamides - Essential (primary) hypertension 05/01/2022 08:30 [facility]adams [place] TYPE: Emergency COMPLAINT: - ABD PAIN DIAGNOSES: - Allergy status to narcotic agent - Unspecified abdominal hernia without obstruction or gangrene - Allergy status to other antibiotic agents - Unspecified abdominal pain - Other halfway (current) drug therapy - Allergy status to penicillin - Unspecified dementia without behavioral disturbance - Type 2 diabetes mellitus with hypoglycemia without coma - Allergy status to other drugs, medicaments and biological substances - Allergy status to sulfonamides - erosion control specialist (current) use of anticoagulants - Allergy status to analgesic agent 03/08/2022 07:55 [facility]adams [place] TYPE: Emergency COMPLAINT: - CHEST PAIN DIAGNOSES: - Hypothyroidism, unspecified - Type 2 diabetes mellitus without complications - Chest pain, unspecified - Essential (primary) hypertension - Allergy status to sulfonamides - Allergy status to other drugs, medicaments and biological substances - Allergy status to narcotic agent - Allergy status to penicillin 02/03/2022 04:15 [facility]adams [place] TYPE: Emergency COMPLAINT: - BLOOD SUGAR PROBLEM DIAGNOSES: - Essential (primary) hypertension - Unspecified osteoarthritis, unspecified site - Allergy status to penicillin - Type 2 diabetes mellitus without complications - Allergy status to sulfonamides - Allergy status to other antibiotic agents - Hypo-osmolality and hyponatremia - Allergy status to narcotic agent - Hypothyroidism, unspecified - Other care provider (current) drug therapy - Dehydration 01/28/2022 12:32 [facility] [place] TYPE: Emergency COMPLAINT: - HEADACHE DIAGNOSES: - Allergy status to narcotic agent - Other care provider (current) drug therapy - Allergy status to other drugs, medicaments and biological substances - Allergy status to sulfonamides - Type 2 diabetes mellitus without complications - Essential (primary) hypertension - Hypothyroidism, unspecified - Allergy status to penicillin - Hypoglycemia, unspecified - Type 2 diabetes mellitus with hypoglycemia without coma 01/14/2022 18:21 [facility] [place] TYPE: Emergency COMPLAINT: - SEIZURE DIAGNOSES: - Other halfway (current) drug therapy - Allergy status to penicillin - Hypothyroidism, unspecified - Allergy status to sulfonamides - Epilepsy, unspecified, not intractable, without status epilepticus - Type 2 diabetes mellitus without complications - Essential (primary) hypertension - Allergy status to narcotic agent 12/11/2021 11:58 [facility]T Mcadams [place] TYPE: Emergency COMPLAINT: - ALTERED LOC 12/02/2021 11:29 [facility] Nelson MSESINA TYPE: Emergency DIAGNOSES: - Type 2 diabetes mellitus with hypoglycemia without coma - Low Blood Sugar (Symptomatic) INPATIENT VISIT TRACKING (12 MO.) 12/11/2021 19:04 G[facility]ETT Mcadams [place] TYPE: Medical Surgical COMPLAINT: - PNA DIAGNOSES: - Essential (primary) hypertension - Pneumonia, unspecified organism - Allergy status to penicillin - Personal history of transient ischemic attack (TIA), and cerebral infarction without residual deficits - Hypoxemia - Pneumonia due to other Gram-negative bacteria - Allergy status to narcotic agent - Dementia in other diseases classified elsewhere without behavioral disturbance - Alzheimer's disease, unspecified - FCI (current) use of insulin - Presence of right artificial knee joint - Atherosclerotic heart disease of [place] coronary artery without angina pectoris - Contact with and (suspected) exposure to COVID-19 - Antiphospholipid syndrome - Epilepsy, unspecified, not intractable, without status epilepticus - Type 2 diabetes mellitus without complications - Allergy status to other drugs, medicaments and biological substances - Other specified postprocedural states - Personal history of other diseases of the digestive system - Nontoxic single thyroid nodule - Other care provider (current) drug therapy - Allergy status to sulfonamides - Presence of right artificial hip joint [id number]
[2022-06-04] MEDS ORDERED: HYDROCODON-ACE1 EA11 PO (12:22)
[2022-06-04] MEDS ORDERED: ONDANSETRON ODT8 MG PO (12:46)
== END 2022-06-04 15:50 | disposition home or self-care (01) ==
LOC: ED 09:25
DX: S00.12XA Contusion of left eyelid and periocular area, initial encounter (principal); E11.9 Type 2 diabetes mellitus without complications; I10 Essential (primary) hypertension; F03.90 Unspecified dementia, unspecified severity, without behavioral disturbance, psychotic disturbance, mood disturbance, and anxiety; Z86.73 Personal history of transient ischemic attack (TIA), and cerebral infarction without residual deficits; Z96.643 Presence of artificial hip joint, bilateral; Z88.0 Allergy status to penicillin; Z88.5 Allergy status to narcotic agent; Z88.8 Allergy status to other drugs, medicaments and biological substances; Z79.890 Hormone replacement therapy; Z79.01 Long term (current) use of anticoagulants; W07.XXXA Fall from chair, initial encounter
CPT/HCPCS: 36415; 70450; 72125; 73030; 73610; 80053; 85025; A9270; G0480; J1170

== ENCOUNTER 2023-06-02 14:41 | Inpatient (IN) | payer MEDICARE, OTHER ==
[~2023-06-02] VITALS: Ht 175.3 cm; Wt 85.0 kg
[~2023-06-02 14:41] MED LIST changes: +HYDROCODON-ACE1 EA11 PO; +ONDANSETRON ODT8 MG PO
--- OUTSIDE RECORDS SUMMARY | 2023-06-02 14:48 | XMS ---
PreManage Notification: JOSE RAFAEL WALKER Security Cash Clerk Events No recent Security Events currently on file CRITERIA MET - Group Notification - PDMP CARE PROVIDERS WALDO GOODEN [facility] 12/05/2020-Current PHONE: Unknown [facility] 08/04/2019-[facility] PHONE: [phone] NATHALY ANTONY Physician Engraving Operator: Surgical 01/30/2019-Current PHONE: Unknown QI HAIR [facility] 10/31/2018-Current PHONE: [phone] -[place]- Dentist: Regular Senior Care Provider [facility] PHONE: [phone] Fuad has no Care Guidelines for this patient. Care History Medical/Surgical 10/31/2018 [facility] \T\middot;\T\nbsp; PATIENT- [facility] ELIGIBLE \T\middot;\T\nbsp; PLEASE REFER PATIENT TO [facility] FOR NON EMERGENT MEDICAL NEEDS. \T\middot;\ T\nbsp; [facility] CAN SEE PATIENTS SAME DAY FOR APTS IF PATIENT CALLS FIRST THING IN THE MORNING. E.D. VISIT COUNT (12 MO.) 4 [facility]. TOTAL 4 NOTE: Visits indicate total known visits. ED/UCC VISIT TRACKING (12 MO.) 06/02/2023 14:41 [facility]T [facility]adams [place] TYPE: Emergency COMPLAINT: - ABDOMINAL PAIN 07/06/2022 21:04 [facility]ETT [facility]adams [place] TYPE: Emergency COMPLAINT: - FALL DIAGNOSES: - Allergy status to narcotic agent - Allergy status to other drugs, medicaments and biological substances - Allergy status to penicillin - Allergy status to sulfonamides - Contusion of unspecified part of head, initial encounter - Essential (primary) hypertension - Hormone replacement therapy - Hypothyroidism, unspecified - terminal operator (current) use of anticoagulants - Syncope and collapse - Type 2 diabetes mellitus without complications - Unspecified fall, initial encounter 07/04/2022 15:51 [facility] [place] TYPE: Emergency COMPLAINT: - HEART PALPITATIONS 06/04/2022 09:26 [facility]T [facility]adams [place] TYPE: Emergency COMPLAINT: - HEAD PAIN DIAGNOSES: - Allergy status to narcotic agent - Allergy status to other drugs, medicaments and biological substances - Allergy status to penicillin - Contusion of left eyelid and periocular area, initial encounter - Essential (primary) hypertension - Fall from chair, initial encounter - Hormone replacement therapy - terminal operator (current) use of anticoagulants - Personal history of transient ischemic attack (TIA), and cerebral infarction without residual deficits - Presence of artificial hip joint, bilateral - Type 2 diabetes mellitus without complications - Unspecified convulsions - Unspecified dementia, unspecified severity, without behavioral disturbance, psychotic disturbance, mood disturbance, and anxiety INPATIENT VISIT TRACKING (12 MO.) 12/02/2022 12:54 [facility] TYPE: Orthopedic DIAGNOSES: . Incomplete rotator cuff tear or rupture of right shoulder, not specified as traumatic . Pain in right shoulder . Secondary osteoarthritis, right shoulder 07/04/2022 15:52 [facility]adams [place] TYPE: Observation COMPLAINT: - HEART PALPITATIONS DIAGNOSES: - Allergy status to narcotic agent - Allergy status to other drugs, medicaments and biological substances - Allergy status to penicillin - Allergy status to sulfonamides - Ankylosing spondylitis of unspecified sites in spine - Antiphospholipid syndrome - Contact with and (suspected) exposure to COVID-19 - Epilepsy, unspecified, not intractable, without status epilepticus - Essential (primary) hypertension - Hypothyroidism, unspecified - Personal history of transient ischemic attack (TIA), and cerebral infarction without residual deficits - Presence of right artificial hip joint - Type 2 diabetes mellitus without complications - Unspecified dementia, unspecified severity, without behavioral disturbance, psychotic disturbance, mood disturbance, and anxiety - Unspecified osteoarthritis, unspecified site [id number]
[2023-06-02 15:47] LABS: BILIRUBIN, URINE NEGATIVE (negative); BLOOD/HGB, URINE NEGATIVE (Negative); KETONE, URINE NEGATIVE (Negative); LEUK ESTERASE, URINE NEGATIVE (negative); NITRITE, URINE NEGATIVE (negative); PH, URINE 6.5 (5-7)
[2023-06-02 15:55] LABS: BACTERIA, URINE RARE /hpf (negative); CRYSTALS, URINE NONE SEEN (0-1+); EPITHELIAL CELLS, URINE 0 /lpf (0-1+); RED BLOOD CELLS, URINE 0-1 /hpf (0-5)
[2023-06-02 15:56] LABS: CASTS, URINE NONE SEEN \\lpf; COLLECTION TYPE, URINE CLEAN CATCH
[2023-06-02 15:57] LABS: REFLEX CULTURE, URINE No (No)
[2023-06-02 16:17] LABS: BASOPHILS 0.8 % (0-2); EOSINOPHILS 4.4 % (0-6); HEMATOCRIT 40.4 % (35.0-50.0); HEMOGLOBIN 13.2 g/dL (12.0-18.0); LYMPHOCYTES 12.9 % (24-44); MCH 27.1 (27-36); MCHC 32.8 g/dl (30-36); MCV 82.6 fl (81-99); MONOCYTES 7.7 % (0-12); NEUTROPHILS 74.2 % (39-80); PLATELET COUNT 196 K/uL (140-440); RBC 4.88 M/ul (4.3-5.7); RDW 16.5 (10.5-15.0)
[2023-06-02 16:32] LABS: ALBUMIN 3.2 g/dL (3.4-5.0); ALBUMIN/GLOBULIN RATIO 0.82 (1.1-2.4); ANION GAP 15.2 (7-21); BILIRUBIN, TOTAL 1.4 ng/dL (0.2-1.0); BUN/CREATININE RATIO 23.25 (6.0-28.6); CALCIUM 8.9 mg/dL (8.5-10.1); CREATININE, SERUM 0.86 mg/dL (0.70-1.30); POTASSIUM 4.2 mmol/L (3.5-5.1); PROTEIN, TOTAL 7.1 g/dL (6.4-8.2)
[2023-06-02 20:16] LABS: INFLUENZA B NAA NEGATIVE (NEGATIVE); RESPIRATORY SYNCYTIAL VIR NAA NEGATIVE (NEGATIVE)
[2023-06-02 21:11] VITALS: BP 185/69
--- NOTE | 2023-06-02 21:40 | NUR ---
PATIENT ARRIVED TO THE FLOOR VIA STRETCHER. PATIENT WAS ABLE TO WALK TO THE BATHROOM BEFORE HE LAYED IN THE BED. ADMITION AND ASSESSMENT DONE. VITAL SIGNS DONE. REPORT RECIEVED FROM DELLA HANCOCK.
--- NOTE | 2023-06-02 23:19 | NUR ---
ORDER RECEIVED FOR IV FLUIDS, SEE MARS
[2023-06-03 01:28] VITALS: BP 160/57
--- NOTE | 2023-06-03 01:34 | NUR ---
PATIENT PULLED OUT HIS PREVIOUS IV. NEW IV STARTED IN LEFT AC. PATIENT TOLERATED WELL. CALL LIGHT WITH IN REACH. NO FUTHER NEEDS AT THIS TIME.
--- NOTE | 2023-06-03 03:20 | NUR ---
PT SITTING UP IN BED WATCHING TV AWAKE AND ALERT. IV FLUIDS INFUSING. CALL LIGHT WITHIN REACH. PT STATES HE HAS HAD MULTIPLE BM'S SINCE STARTING BOWEL PREP. NO NEEDS EXPRESSED AT THIS TIME. SAFETY PRECAUTIONS IN PLACE.
[2023-06-03 05:07] VITALS: BP 152/93
[2023-06-03 06:38] LABS: BASOPHILS 0.4 % (0-2); HEMATOCRIT 42.3 % (35.0-50.0); HEMOGLOBIN 14.3 g/dL (12.0-18.0); LYMPHOCYTES 4.6 % (24-44); MCH 27.4 (27-36); MCHC 33.8 g/dl (30-36); MCV 81.1 fl (81-99); MONOCYTES 0.9 % (0-12); NEUTROPHILS 94.1 % (39-80); PLATELET COUNT 215 K/uL (140-440); RBC 5.21 M/ul (4.3-5.7); RDW 16.2 (10.5-15.0)
[2023-06-03 07:04] LABS: ALBUMIN 3.2 g/dL (3.4-5.0); ALBUMIN/GLOBULIN RATIO 0.74 (1.1-2.4); BUN/CREATININE RATIO 19.23 (6.0-28.6); CALCIUM 8.7 mg/dL (8.5-10.1); CREATININE, SERUM 0.78 mg/dL (0.70-1.30); PROTEIN, TOTAL 7.5 g/dL (6.4-8.2)
--- NOTE | 2023-06-03 07:30 | NUR ---
VERBAL REPORT RECEIVED FROM KARISSA HAYNES AND KARISSA CHRISTOPHER. PT RESTS IN BED WITH EYES CLOSED, RESP EVEN AND UNLABORED.
[2023-06-03 09:20] VITALS: BP 161/63
[2023-06-03] MEDS ORDERED: GABAPENTIN100 MG PO (09:56)
--- NOTE | 2023-06-03 10:00 | NUR ---
PT SITS UP IN BED, DENIES NAUSEA, REPORTS EPIGASTRIC PAIN TOLERABLE. EPIGASTRIC REGION TENDER TO TOUCH. LARGE BULGE OVER RUQ THAT INCREASES WITH BREATHS. SCAR NOTED OVER THIS BULGE, WHEN ASKED ABOUT THE SCAR PT STATES HE DOES NOT REMEMBER WHAT IT IS FROM. BOWEL TONES ACTIVE X4 QUADRANTS. IV IN RFA INFUSING LR, NO REDNESS, SWELLING OR LEAKING NOTED. CALL LIGHT IN REACH. NO REQUESTS AT THIS TIME.
--- NOTE | 2023-06-03 10:15 | NUR ---
Spoke with Munir. He states [place]. He has canes and a walker from past surgery. He has a ramp into his house. He has several plates in his neck and states he has learned to move slowly. He denies financial issues. Meals are provided by the [employer] 3-5 times per week. He states he has more than enough groceries. Granddaughters take turns staying with him and assisting. He states he can drive, but his granddaughters hide his keys as they feel he is unsafe. Granddaughters provide housekeeping, cooking and cleaning. Pt plans on dc to home when he is medically cleared. He is waiting to have a colonoscopy. No needs per pt.
--- NOTE | 2023-06-03 10:37 | NUR ---
IV TO SL FOR SHOWER.
[2023-06-03] MEDS ORDERED: LEVETIRACETAM500 MG PO (11:15)
[2023-06-03] MEDS ORDERED: METOPROLOL SUCC50 MG PO (11:17)
--- NOTE | 2023-06-03 11:17 | NUR ---
MED REC COMPLETE
--- NOTE | 2023-06-03 11:46 | NUR ---
WHEN ASKED ABOUT TAKING XARELTO PT STATES HE DOES NOT REMEMBER THE NAME BUT THAT HE DOES TAKE A BLOOD THINNER. PT REPORTS HE LAST TOOK HIS "BLOOD THINNER" ON 06/01/23.
--- NOTE | 2023-06-03 12:24 | NUR ---
IV FLUSHED WITH 10CC NS, PATENT. LR CONTINUOUS INFUSION RESUMED AT 75MPH.
--- NOTE | 2023-06-03 13:10 | NUR ---
PT RESTS WITH EYES CLOSED, RESP EVEN AND UNLABORED.
[2023-06-03 13:51] VITALS: BP 132/80
--- NOTE | 2023-06-03 15:02 | NUR ---
NOTED SMALL AMOUNT OF SWELLING AT RFA IV SITE, PT REPORTS THIS IS TENDER TO TOUCH AND PAINFUL WHEN ATTEMPTING TO FLUSH. NEW IV ESTABLISHED IN LFA 20G BY KARISSA GUZMAN. PT TOLERATED WELL. LR INFUSING, NO SWELLING, LEAKING OR REDNESS NOTED AT SITE.
--- NOTE | 2023-06-03 15:33 | NUR ---
PT INFORMED THAT COLONOSCOPY HAS BEEN MOVED TO TOMORROW. PT IS QUITE UPSET BY THIS AND TALKED ABOUT LEAVING THE HOSPITAL. PT STATES, "I HAVE BEEN HERE TOO LONG." INFORMED PT THAT HE IS NOW ON A CLEAR LIQUID DIET. PT AGREES TO ICE WATER, CHICKEN BROTH AND JELLO. ICE WATER AND CHICKEN BROTH PROVIDED. JELLO TO BE DELIVERED. PT IS STILL UPSET BUT NOT THREATENING TO LEAVE. PT IS UPSET THAT THE PROCEDURE HAS BEEN MOVED. PT CALL'S HIS PHARMACY TO GET INFORMATION ON THE BLOOD THINNER HE IS TAKING. PT IS TAKING XARELTO, [facility] REPORTS THEY LAST DISPENSED AN RX ON 04/28/23 AND THAT THE PT SHOULD HAVE RAN OUT ON 05/28/23. PT HAD PREVIOUSLY REPORTED HE LAST TOOK THE MEDICATION ON 06/01/23, PT IS FRUSTRATED BY THIS AND STATES HE DOESN'T REMEMBER BUT IS SURE IT WAS MORE THAN 48 HOURS AGO.
--- NOTE | 2023-06-03 16:45 | NUR ---
BRICK PAVER AND STUDENT REPORTED TO THIS RN THAT PT APPEARS UPSET. REPORTS PT ASKED FOR BELONGINGS TO BE "MOVED AWAY" FROM HIM, BECAUSE HE MAY "LOSE CONTROL" PT REQUESTED TO SPEAK WITH SPIRITUAL CARE. IN TO SEE PT, PT STATED FRUSTRATION WITH SCOPE BEING PUSHED BACK. PT STATED HE "WANTS TO THROW THINGS OUT THE WINDOW, IT MAY GET PEOPLES ATTENTION" ASKED PT IF HE FELT LIKE HARMING HIMSELF OR OTHERS. PT STATED HE WOULD NOT HARM OTHERS. PT REQUESTED TO SPEAK WITH DR BHATTI. EXPLAINED DR BHATTI WAS IN PROCEDURE WOULD GET THE MESSAGE TO DR BHATTI. PT VERBALIZED UNDERSTANDING OF THIS. SPIRITUAL CARE CALLED AND TO THE FLOOR TO SEE PT WITH SECURITY.
--- NOTE | 2023-06-03 17:46 | NUR ---
I WAS CALLED IN BECASUE PT HAD THREATENED TO THROW THINGS IN THE ROOM AND HAD ASKED NURSES TO MOVE ALL ITEMS OUT OF HIS REACH SO HE COULD NOT DO SO. HE ASKED TO TALKE WITH A MEMBER OF SPIRITUAL CARE AT THE SAME TIME. I ASKED SECURITY TO STAND OUTSIDE ROOM IN CASE AN INCIDENT OCCURRED BUT CONVERSATION PROCEEDED WITHOUT ANY ISSUES. PT EXPRESSED FRUSTRATION AT DELAYED PROCEDURE. I ATTEMPTED TO REDIRECT THOUGHT PROCESS TOWARD HIS STATED GOAL OF "GETTING SOMETHING DONE." PT CONSENTED TO PRAYER AND I PRAYED FOR PATIENCE AND ACCEPTANCE OF LIMITATIONS OF MEDCIAL SYSTEM. PT DID NOT EXPRESS ANY REDUCTION OF HIS FRUSTRATION BUT DID STATE THAT HE UNDERSTOOD THREATENING STATEMENTS WERE NOT PRODUCTIVE. PT ALSO ACKNOWLEDGED THAT LEAVING WOULD NOT SPEED INTERVENTIONS. GAVE PT BIBLE AND RELAYED HIS SENTIMENTS TO NURSING STAFF.
[2023-06-03 18:00] VITALS: BP 160/57
--- NOTE | 2023-06-03 18:20 | NUR ---
NOTIFIED THAT PT WAS VERY UP SET ABOUT NOT BEING ABLE TO DO THE COLONOSCOPY TODAY. PT WAS STILL UP SET AFTER DISCUSION OF THE REASON AND RISK. REPORTED HE WILL PUT THE PATIENT ON FOR TOMORROW AFTER HIS SCHEDULED PROCEDURES. PT OKAY TO HAVE CLEAR LIQUID DIET AND THEN NPO AT MIDNIGHT. NOTIFIED OF PT'S MOOD AND BEING UPSET WITH THREATS TO LEAVE DUE TO COLONOSCOPY BEING MOVED TO TOMORROW. PT CURRENTLY DE-ESCALATED AND AGREEABLE TO COLONOSCOPY TOMORROW. DISCUSSED THAT HAD ALSO BEEN NOTIFIED. UP DATED PT AFTER DISCUSSION WITH AND . PT IS STILL AGREEABLE BUT ALSO STILL SOMEWHAT AGITATED AND COULD EASILY BE TRIGGERED. ANOOP IN ROOM TO VISIT. CHICKEN BROTH AND SUGAR FREE JELLO PROVIDED. CALL LIGHT IN REACH NO REQUESTS AT THIS TIME.
--- NOTE | 2023-06-03 19:42 | NUR ---
REPORT RECEIVED FROM DAY SHIFT RN. PT RESTING IN BED. SAFETY PRECAUTIONS MAINTAINED. CALL LIGHT WITHIN REACH. WILL CONTINUE TO MONITOR.
[2023-06-03 21:07] VITALS: BP 140/54
--- NOTE | 2023-06-03 21:26 | NUR ---
PT ASSESSED AND MEDICATIONS GIVEN. PT INDEPENDENT TO BATHROOM. HAT IN TOILET, GOOD OUTPUT NOTED. VSS. BS 253, INSULIN GIVEN. PT'S FAMILY AT BEDSIDE. IVF INFUSING PER ORDER. SAFETY PRECAUTIONS MAINTAINED. CALL LIGHT WITHIN REACH. WILL CONTINUE TO MONITOR.
--- NOTE | 2023-06-03 22:27 | NUR ---
CALL LIGHT ANSWERED, pt STATES, "I NEED HELP WITH MY BED". IN ROOM TO ASSIST. pt REPORTS HE PASSED GAS AND SOME POOP GOT ON HIS CHUCKS. NEW CHUCKS IN PLACE AND X2 WARM BLANKETS PROVIDED, NO FURTHER NEEDS. CALL LIGHT IN REACH.
[2023-06-04 05:37] LABS: BASOPHILS 0.4 % (0-2); EOSINOPHILS 0.4 % (0-6); HEMATOCRIT 39.2 % (35.0-50.0); HEMOGLOBIN 13.1 g/dL (12.0-18.0); LYMPHOCYTES 8.9 % (24-44); MCH 27.3 (27-36); MCHC 33.4 g/dl (30-36); MCV 81.8 fl (81-99); MONOCYTES 4.7 % (0-12); NEUTROPHILS 85.6 % (39-80); PLATELET COUNT 210 K/uL (140-440); RBC 4.79 M/ul (4.3-5.7); RDW 16.5 (10.5-15.0)
[2023-06-04 05:44] VITALS: BP 130/54
[2023-06-04 05:54] LABS: ALBUMIN/GLOBULIN RATIO 0.81 (1.1-2.4); BUN/CREATININE RATIO 18.98 (6.0-28.6); CALCIUM 8.7 mg/dL (8.5-10.1); CREATININE, SERUM 0.79 mg/dL (0.70-1.30); PROTEIN, TOTAL 6.7 g/dL (6.4-8.2)
--- NOTE | 2023-06-04 06:08 | NUR ---
PT RESTED WELL DURING THE SHIFT. IVF INFUSING PER ORDER. VSS. GOOD OUTPUT NOTED. PT INDEPENDENT TO THE BATHROOM. PT NPO SINCE MIDNIGHT IN PREPARATION FOR A COLONOSCOPY TODAY. SAFETY PRECAUTIONS MAINTAINED. CALL LIGHT WITHIN REACH. WILL CONTINUE TO MONITOR.
--- NOTE | 2023-06-04 06:21 | EKG ---
[facility] [address] [facility] [place] [address] Signed Sinus rhythm with 1st degree AV block Possible Left atrial enlargement Left axis deviation Abnormal ECG When compared with ECG of 06-JUL-2022 21:08, No significant change was found Confirmed by HARJIT HARRIS MD ([id number]) on 06/04/2023 6:21:38 AM Electronically Signed By: HARJIT HARRIS 06/04/23620 PATIENT NAME: WALKERJOSE RAFAEL SIDNEY Electrocardiogram DATE OF : 50 PHYSICIAN: HARJIT HARRIS REPORT #: [id number] REPORT IS CONFIDENTIAL AND NOT TO BE RELEASED WITHOUT AUTHORIZATION
--- NOTE | 2023-06-04 07:25 | NUR ---
REPORT RECEIVED FROM KARISSA ENCINSA. PT SITTING UP IN BED WITH EYES CLOSED. RR EVEN AND UNLABORED. NO NEEDS IDENTIFIED AT THIS TIME. CALL LIGHT IN REACH.
[2023-06-04 08:37] VITALS: BP 142/54
--- NOTE | 2023-06-04 09:17 | NUR ---
RECIEVED REPORT FROM DIRECTOR OF HEMOPHILIA NURSE. PATIENT MEDS GIVEN. PATIENT REPOPRTS "TIINGLING" IN HIS RIGHT GREAT TOE. REPORTED TO PRIMARY RN. PROVIED TOOTHBRUSH, TOOTHPASTE, AND MOUTH WAS FOR ADLS. PT SITTING IN BED AT THIS TIME AND IS INDEPENDENT WITH HIS NEEDS. CALL LIGHT WITH IN REACH AND NO FURTHER QUESTIONS OR NEEDS.
--- NOTE | 2023-06-04 10:02 | NUR ---
IN TO ROUND ON PT. ASSESSMENT COMPLETE. LUNG SOUNDS CLEAR. BOWEL TONES ACTIVE. PT REPORTS PAIN 6/10 TO LOWER ABD. PT STATES IT IS "DULL AND CONSTANT." PT REPORTS "TOES ARE TINGLY COLD" TO BILATERAL FEET. PT DENIES NAUSEA AT THIS TIME. PT REPORTING PRN PAIN MEDICATION. WILL RETURN WITH PRN PAIN MEDICATION. PT DENIES ANY OTHER NEEDS AT THIS TIME. CALL LIGHT IN REACH.
--- NOTE | 2023-06-04 10:37 | NUR ---
IN WITH SN SHIRA TO ADMINISTER PRN PAIN MEDICATION. PRN PAIN MEDICAITON ADMINISTERED, SEE MAR. WARM BLANKETS PROVIDED PER PT REQUEST. PT DENIES ANY OTHER NEEDS AT THIS TIME. CALL LIGHT IN REACH.
--- NOTE | 2023-06-04 11:10 | NUR ---
Attempted to see pt. Father Harvinder is in with pt. I will attempt to see later.
--- NOTE | 2023-06-04 11:36 | NUR ---
PT APPEARED TO BE RESTING. DID NOT DISTURB. PRAYED FOR PATIENCE AND ACCEPTANCE.
--- NOTE | 2023-06-04 11:38 | NUR ---
IN TO ROUND ON PT. PT REPORTING PAIN 5/10 TO ABD. PT REPOSITIONED IN BED. PT HAS A MALE VISITOR IN ROOM. PILLOWS PROVIDED BY SN. NO OTHER NEEDS FROM THIS RN. CALL LIGHT IN REACH.
--- NOTE | 2023-06-04 12:43 | NUR ---
IN TO ANSWER CALL LIGHT. PT REQUESTING PILLOW AND MOUTH SWAB. PILLOW AND MOUTH SWAB PROVIDED. PT DENIES ANY OTHER NEEDS AT THIS TIME. CALL LIGHT IN REACH. FRIEND IN ROOM.
[2023-06-04 13:44] VITALS: BP 141/45
--- NOTE | 2023-06-04 14:30 | NUR ---
IN TO ADMINISTER MEDICATION. PT REQUESTING MOUTH SWAB. MOUTH SWAB PROVIDED. PT DENIES ANY OTHER NEEDS AT THIS TIME. CALL LIGHT IN REACH.
--- NOTE | 2023-06-04 15:45 | NUR ---
IN TO ROUND ON PT. PT SITTING UP IN BED. PT RESPONDS WHEN ADDRESSED. ASSESSMENT COMPLETE. LUNG SOUNDS CLEAR. BOWEL TONES ACTIVE. ABD TENDER. HEART TONES IRREGULAR. PT STATES "THEY SHUT MY POWER OFF EVEN THOUGH THE BILL WAS PAID." ASKED PT ABOUT PAIN AND PT LOOKS AT THIS RN AND STATES "IT IS AN 8. I WANT TO STRANGLE SOMETHING." PT REPORTING PAIN 8/10 TO ABD. PRN PAIN MEDICATIN ADMINISTERED, SEE MAR. IV FLUSHES WNL. PT DENIES ANY OTHER NEEDS AT THIS TIME. CALL LIGHT IN REACH.
--- NOTE | 2023-06-04 16:52 | NUR ---
THIS RN NOTIFIED THAT PT IS OFF UNIT FOR PROCEDURE.
--- NOTE | 2023-06-04 17:31 | NUR ---
06/04/23 1731 Maritza Beaulieu 1719 PT ARRIVED TO PACU ON RA AND PT ASLEEP AND RESP EVEN AND UNLABORED. 1729 PT WAKES AND TALKING TO RN. PT DENIES PAIN AND NAUSEA. VSS.
--- NOTE | 2023-06-04 18:05 | NUR ---
PT BACK TO FLOOR. REPORT RECEIVED FROM KARISSA JEFFRIES. PT SITTING UP ON EDGE OF BED. VITALS COMPLETE. PT REQUESTING WARM BLANKETS, WILL RETURN WITH WARM BLANKETS. PT DENIES ANY OTHER NEEDS AT THIS TIME. CALL LIGHT IN REACH.
[2023-06-04 18:11] VITALS: BP 158/64
--- NOTE | 2023-06-04 18:38 | NUR ---
PT SITTING UP IN BED, THIS RN BRINGS IN LOW FIBER FOOD FROM NURISHMENT ROOM ALONG WITH MEDICATION DUE, SEE EMAR. PT'S PRIMARY RN UPDATED. PT STATES NO FURTHER NEEDS AT THIS TIME, CALL LIGHT WITHIN REACH.
--- NOTE | 2023-06-04 18:45 | NUR ---
IN WITH WARM BLANKETS PER PT REQUEST. IV FLUIDS RESUMED. IV FLUSHES WNL. PT DENIES ANY OTHER NEEDS AT THIS TIME. CALL LIGHT IN REACH.
--- NOTE | 2023-06-04 19:07 | CONS ---
[facility] [address], [place] [address] Signed DATE OF CONSULTATION: 06/03/2023 REQUESTING PHYSICIAN: Dr. Fernandez. PROBLEM: Probable terminal ileitis. HISTORY OF PRESENT ILLNESS: This 72-year-old [place] man is known to me from the distant past. Approximately 20 years ago, I saw him in the emergency room with free intraabdominal air and probable perforated diverticulitis. At that time, he was 360 pounds and had advanced ankylosing spondylitis with a "frozen" neck. He ultimately I believe underwent sigmoid resection at [facility] for this. He has since that time lost a fair amount of weight, mostly by diet approach. He presented to the emergency room yesterday and evaluated by Dr. Head and admitted by Dr. Fernandez with complaints of right-sided abdominal pain. He is long-standing noted to have an incisional hernia in the upper abdomen for which colon is part of the viscus. The fascial defect is greater than 7 cm and he has had no intervention to it already. A CT scan was performed which showed advanced ankylosing spondylitis of the spine and a small hernia in the right epigastrium with large intestine as previously described. Spleen was normal. Quite notable, however, was inflammatory change of the terminal ileum that extended proximally. There is no actual small-bowel obstruction, however. There was dilated proximal small bowel to some degree, however. Mild pulmonary fibrosis in the lung bases was noted as well. There was no pleural effusion. There are calcified plaques of coronary arteries as well as large abdominal vessels. The spleen was considered normal. There has been cholecystectomy. There is mild dilation of the intra and extrahepatic bile ducts; the distal common duct had vague high attenuation structure 6 mm in size present on previous CT scan in November 2021. At present, patient is being prepared for possible colonoscopy to affirm the diagnosis of terminal ileitis. Review of the record shows colonoscopy was performed by Dr. Darrin Theodore in 2011 at which time the ileum was considered distorted also. A [id number] colorectal anastomosis at 38 cm was noted as well as residual diverticulosis and hyperplastic ulcerated lesion in the proximal right colon/ileocecal valve. I am unable to currently identify the pathology results from biopsies at that time however. At present, patient is feeling reasonably well. He has embarked on a bowel prep. He does not have severe abdominal pain. His pain was identified in the right side of the Electronically Signed By: EVANS BHATTI MD 06/04/23 1907 PATIENT NAME: JOSE RAFAEL WALKER CONSULTATION DATE OF : 50 REPORT #: [id number] PHYSICIAN: EVANS BHATTI MD PCP: QI HAIR MD REPORT IS CONFIDENTIAL AND NOT TO BE RELEASED WITHOUT AUTHORIZATION [facility] [address] [place] [id number] Signed abdomen vaguely and in the mid to upper abdomen mostly. PHYSICAL EXAMINATION: GENERAL: Pleasant [place] man who looks to be in no acute distress at this time. VITAL SIGNS: Height 5 feet 9 inches, weight 85 kg. BMI 27.7 (this is markedly different than when I saw him last a number of years ago). HEENT: Trachea is midline. Mucous membranes are moist. CHEST: Clear. HEART: Regular. ABDOMEN: Nondistended. There is fullness in the right upper abdomen related to the hernia as previously described. Palpation does not reveal tenderness at this time. EXTREMITIES: Show no clubbing, cyanosis, or edema. LABORATORY DATA: At admission white count of 7.3, currently 11.1, hematocrit 40.4 at admission, now 42.3, platelets now 215,000. Chem profile is essentially normal, creatinine 0.78. Liver enzymes show alkaline phosphatase elevated to 206, ALT 89, AST 38, bilirubin is 1.4 at admission, now 1.0. Serology shows no evidence of COVID or influenza. ASSESSMENT: The patient clearly has terminal ileitis. Inflammatory bowel disease certainly well associated with ankylosing spondylitis. Additionally, however, biliary malignancy is also associated with this. 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 Biopsy and affirmation of the suspected terminal ileitis by colonoscopy is a reasonable consideration. At present, bowel prep is underway. There is no urgency to this intervention. Medications have been initiated to include steroids, which I fully concur with. He is being managed for diabetes as well. He is currently on methylprednisolone 125 mg IV at admit, now hydrocortisone 100 mg IV q.8 hours. Ulcer prophylaxis will be important on the basis of his steroid use and pantoprazole has been administered concurrently. I will review this further with Dr. Fernandez and plan for colonoscopy either late today or perhaps tomorrow depending on logistics. ADDENDUM: The patient was noted to be on rivaroxaban anticoagulant. I would hold off on colonoscopy on the basis of his anticoagulant status right now as it is not urgent and the risk of bleeding, particularly with biopsies which are certain to be done is not insignificant. We will review this with Dr. Fernandez as well. Electronically Signed By: EVANS BHATTI MD 06/04/23 1907 PATIENT NAME: JOSE RAFAEL WALKER CONSULTATION DATE OF : 50 REPORT #: [id number] PHYSICIAN: EVANS BHATTI MD PCP: QI HAIR MD REPORT IS CONFIDENTIAL AND NOT TO BE RELEASED WITHOUT AUTHORIZATION [address] [place] [address] Signed Evans Bhatti MD /MODL /[id number] cc: MD HARJIT Nguyen MD Copies: DARRIN THEODORE MD, REX MD ~ Electronically Signed By: EVANS BHATTI MD 06/04/23 1907 PATIENT NAME: JOSE RAFAEL WALKER CONSULTATION DATE OF : 50 REPORT #: [id number] PHYSICIAN: EVANS BHATTI MD PCP: QI HAIR MD REPORT IS CONFIDENTIAL AND NOT TO BE RELEASED WITHOUT AUTHORIZATION
--- NOTE | 2023-06-04 19:31 | NUR ---
REPORT RECEIVED FROM DAY SHIFT RN. PT SITTING ON SIDE OF BED, EATING. SAFETY PRECAUTIONS MAINTAINED. CALL LIGHT WITHIN REACH. WILL CONTINUE TO MONITOR.
[2023-06-04 21:08] VITALS: BP 133/47
--- NOTE | 2023-06-04 21:20 | NUR ---
PT ASSESSED AND MEDICATIONS GIVEN. IVF INFUSING PER ORDER. VSS. PT STATING STONACH IS CRAMPING BUT MANAGEABLE. PT IS HAVING LOTS OF FLATUS. PT UP INDEPENDENTLY TO THE BATHROOM. SAFETY PRECAUTIONS MAINTAINED. CALL LIGHT WITHIN REACH. WILL CONTINUE TO MONITOR.
[2023-06-05 01:50] VITALS: BP 143/52
[2023-06-05 05:28] LABS: BASOPHILS 0.1 % (0-2); EOSINOPHILS 0.1 % (0-6); HEMATOCRIT 38.5 % (35.0-50.0); HEMOGLOBIN 12.8 g/dL (12.0-18.0); LYMPHOCYTES 7.3 % (24-44); MCH 27.2 (27-36); MCHC 33.3 g/dl (30-36); MCV 81.7 fl (81-99); MONOCYTES 3.3 % (0-12); NEUTROPHILS 89.2 % (39-80); PLATELET COUNT 199 K/uL (140-440); RBC 4.71 M/ul (4.3-5.7); RDW 16.3 (10.5-15.0)
[2023-06-05 06:03] LABS: ALBUMIN 3.3 g/dL (3.4-5.0); ALBUMIN/GLOBULIN RATIO 0.94 (1.1-2.4); ANION GAP 12.9 (7-21); BILIRUBIN, TOTAL 0.7 ng/dL (0.2-1.0); BUN/CREATININE RATIO 22.36 (6.0-28.6); CALCIUM 8.6 mg/dL (8.5-10.1); CREATININE, SERUM 0.76 mg/dL (0.70-1.30); POTASSIUM 3.9 mmol/L (3.5-5.1); PROTEIN, TOTAL 6.8 g/dL (6.4-8.2)
--- NOTE | 2023-06-05 06:06 | NUR ---
PT RESTED SOME DURING THE SHIFT. IVF INFUSING PER ORDER. VSS. PT UP INDEPENDENTLY TO BATHROOM. GOOD OUTPUT NOTED. SAFETY PRECAUTIONS MAINTAINED. CALL LIGHT WITHIN REACH. WILL CONTINUE TO MONITOR.
[2023-06-05 06:21] VITALS: BP 141/46
--- NOTE | 2023-06-05 07:00 | NUR ---
REPORT RECEIVED FROM KARISSA ENCINAS. PT SITTING UP ON EDGE OF BED. PT ASKING WHEN PROVIDER WILL BE IN. PT STATES "I WANT TO SMOKE A JOINT." URINAL EMPTIED. PT DENIES ANY OTHER NEEDS AT THIS TIME. CALL LIGHT IN REACH.
[2023-06-05] MEDS ORDERED: DELZICOL400 M1 PO (07:18)
[2023-06-05] MEDS ORDERED: PREDNISONE20 MG PO (07:24)
[2023-06-05] MEDS ORDERED: PANTOPRAZOLE SO40 MG PO (07:25)
--- NOTE | 2023-06-05 08:40 | NUR ---
IN TO ADMINISTER MEDICAITONS, SEE MAR. PT TAKES PO MEDICATIONS WITH NO ISSUES. ASSESSMENT COMPLETE. LUNG SOUNDS CLEAR. BOWEL TONES ACTIVE. PT DENIES PAIN OR TENDERNESS WITH ABD PALPATION. PT DENIES PAIN AT THIS TIME. IV FLUSHES WNL. URINAL EMPTIED. BREAKFAST TRAY ARRIVES. PT REQUESTING TO BE SET UP FOR SHOWER. SHOWER SUPPLIES SET UP IN RESTROOM. PT DENIES ANY OTHER NEEDS AT THIS TIME. PT INFORMED TO USE CALL LIGHT WHEN PT IS READY TO SHOWER. PT VERBALIZES UNDERSTANDING. CALL LIGHT IN REACH.
--- NOTE | 2023-06-05 09:57 | NUR ---
IN TO ROUND ON PT. PT SITTING UP ON EDGE OF BED. PT REQUESTING TO TAKE SHOWER NOW. IV FLUIDS ON STANDBY AND IV SITE WRAPPED. DR. HARRIS IN TO TALK WITH PT. CABRERA CERVANTES IN TO OBTAIN VITALS. PT DENIES ANY OTHER NEEDS FROM THIS RN AT THIS TIME.
[2023-06-05 10:01] VITALS: BP 170/59
--- NOTE | 2023-06-05 10:42 | NUR ---
IN PT IS DONE WITH SHOWER. PT PULLED IV WHILE REMOVING DRESSING AROUND IV. IV CATHETER INTACT. GAUZE AND COBAN IN PLACE FOR PRESSURE. PT IN OWN CLOTHES. VERBAL AND WRITTEN DC INSTRUCTIONS PROVIDED. QUESTIONS ANSWERED. BELONGINGS RETURNED FROM LOCK BOX. BELONGINGS BAG RETURNED. PHARMACY CALLED TO GO OVER RX WITH PT. PT DENIES ANY OTHER NEEDS FROM THIS RN AT THIS TIME. CALL LIGHT IN REACH.
--- NOTE | 2023-06-05 11:13 | NUR ---
IN TO ADMINISTER MEDICATION, SEE MAR. MART, PHARMACY IN ROOM TALKING WITH PT. PT TAKES PO MEDICAITON WITH NO ISSUES. NO OTHER NEEDS FROM THIS RN AT THIS TIME.
--- NOTE | 2023-06-05 11:46 | NUR ---
IN TO ADMINISTER MEDICATION, SEE MAR. PT STANDING AT DOOR WAITING PT IS WANTING TO LEAVE. PT AWARE THAT PHARMACY IS WORKING ON RX. INFORMED PT THAT WHEN PHARMACY IS DONE WE WILL GET PT DC'd. PT DENIES ANY OTHER NEEDS AT THIS TIME. CALL LIGHT IN REACH.
--- NOTE | 2023-06-05 11:55 | NUR ---
THIS RN NOTIFIED BY PHARMACY THAT PT IS READY TO GO. THIS RN WHEELES PT OUT TO VEHICLE.
--- NOTE | 2023-06-06 11:30 | OR ---
[facility] [address] [place], [place] [address] Signed DATE OF OPERATION: 06/04/2023 SURGEON: Evans Bhatti MD PREOPERATIVE DIAGNOSES: 1. Probable terminal ileitis. 2. Underlying longstanding ankylosing spondylitis. POSTOPERATIVE DIAGNOSES: Inflammatory changes of the cecum and likely ileum. PROCEDURE: Total colonoscopy to cecum with cold morcellation biopsies. ANESTHESIA: Intravenous sedation with propofol. Richie Billingsley CRNA INDICATIONS: This 72-year-old Bahamian man has longstanding ankylosing spondylitis. He also has had diverticular disease and underwent sigmoid resection a number of years ago. He was seen in the emergency room on June 02, 2023, with mid right-sided abdominal pain. A CT scan was performed which showed inflammation of the ileum. The patient has a distant history of colonoscopy in [address] Stanislaw Newberry, which showed inflammatory changes of the cecum and ileum. He has been reasonably symptom-free since that time. His current findings are highly suggestive of inflammatory bowel disease, often associated with ankylosing spondylitis. He concurrently has been anticoagulated with Eliquis for reasons that are not entirely certain to me. He has now been off Eliquis for 48 hours and is safe to undergo colonoscopy with biopsy, anticipating intubation of the ileum if at all possible. The risk of bleeding, infection, perforation, and so forth were reviewed with him regarding colonoscopy. He understands and wished to proceed. FINDINGS: The prep was good. Complete colonoscopy was undertaken of the cecum. Passage in the mid colon was challenging, possibly because of an abdominal wall hernia that contained portion of the colon, but it was accomplished without question. At the cecum, firm fibrotic and inflammatory changes were noted. There were two orifices, one suggestive of the ileum, the other possibly appendix. Blind biopsies were taken and that was suggestive of the ileum, but the scope certainly could not be passed into it. Additional biopsies were taken of the cecum of course. The remaining colon was entirely Electronically Signed By: EVANS BHATTI MD 06/06/23 1130 PATIENT NAME: JOSE RAFAEL WALKER OPERATIVE REPORT DATE OF : 50 REPORT #: [id number] PHYSICIAN: EVANS BHATTI MD PCP: QI HAIR MD REPORT IS CONFIDENTIAL AND NOT TO BE RELEASED WITHOUT AUTHORIZATION [facility] [address] [place], [place] [address] Signed normal other than scattered diverticula. The actual anastomotic area was not identified. DESCRIPTION OF PROCEDURE: The patient was brought to the endoscopy suite and placed in lateral decubitus position and given intravenous sedation with propofol infusional technique. Digital rectal examination was normal. The Olympus video colonoscope was passed in the rectum and manipulated throughout the colon. At the midportion of the colon, it was difficult to identify the area of passage with various manipulations. Ultimately, this area was traversed. This may have represented an anastomosis from the past. The scope was fitted with and further advanced ultimately to the cecum. Clear visualization of cecum was noted. Fibrotic and chronically inflamed. There were two orifices, one suggestive of the appendix. The other possibly the ileum. Neither could be traversed with the scope. Blind biopsies were taken with cold morcellation technique in each area. Biopsies were also taken of the cecum. The scope was then withdrawn and examination showed no sign of abnormality other than diverticula. The scope was removed and the patient was taken to the recovery room in good condition. CONCLUDING DIAGNOSES: Most likely has inflammatory bowel disease involving cecum and ileum. PLAN: My recommendation is prednisone 40 mg daily, tapering by 10 mg every two weeks with concurrent administration of mesalamine 2.4 g daily (800 mg p.o. t.i.d.) as well as PPI medication for ulcer prophylaxis. We would await the biopsies to affirm inflammatory bowel disease as an underlying diagnosis. He does not have obvious bowel obstruction, though he is at risk for that. It would be notable too that he may require resection of the ileum and cecum depending on his recovery from this problem. Biologic agents as management for inflammatory bowel disease would be a consideration, but I would not initiate that until and unless failure of the other approach is noted. Evans Bhatti MD JM/MODL /[id number] Electronically Signed By: EVANS BHATTI MD 06/06/23 1130 PATIENT NAME: JOSE RAFAEL WALKER OPERATIVE REPORT DATE OF : 50 REPORT #: [id number] PHYSICIAN: EVANS BHATTI MD PCP: QI HAIR MD REPORT IS CONFIDENTIAL AND NOT TO BE RELEASED WITHOUT AUTHORIZATION [facility] [address] [place] [id number] Signed cc: MD HARJIT Connor Copies: QI HAIR MD ~ Electronically Signed By: EVANS BHATTI MD 06/06/23 1130 PATIENT NAME: JOSE RAFAEL WALKER OPERATIVE REPORT DATE OF : 50 REPORT #: [id number] PHYSICIAN: EVANS BHATTI MD PCP: QI HAIR MD REPORT IS CONFIDENTIAL AND NOT TO BE RELEASED WITHOUT AUTHORIZATION
== END 2023-06-05 11:57 | disposition home or self-care (01) | DRG 386 ==
LOC: ED 14:41 → MS 14:42
PROVIDERS: Emergency Medicine; Surgery; ADMIT Family Medicine; ATTEND Family Medicine
PROC: 0DBH8ZX Excision of Cecum, Via Natural or Artificial Opening Endoscopic, Diagnostic (ICD-10-PCS; principal; 2023-06-04 14:30)
DX: K50.00 Crohn's disease of small intestine without complications (principal); C24.9 Malignant neoplasm of biliary tract, unspecified; K83.09 Other cholangitis; G40.909 Epilepsy, unspecified, not intractable, without status epilepticus; M45.9 Ankylosing spondylitis of unspecified sites in spine; E11.9 Type 2 diabetes mellitus without complications; F03.90 Unspecified dementia, unspecified severity, without behavioral disturbance, psychotic disturbance, mood disturbance, and anxiety; I10 Essential (primary) hypertension; K52.9 Noninfective gastroenteritis and colitis, unspecified; M19.90 Unspecified osteoarthritis, unspecified site; E03.9 Hypothyroidism, unspecified; Z86.73 Personal history of transient ischemic attack (TIA), and cerebral infarction without residual deficits; Z87.19 Personal history of other diseases of the digestive system; Z98.890 Other specified postprocedural states; Z90.49 Acquired absence of other specified parts of digestive tract; Z88.0 Allergy status to penicillin; Z88.8 Allergy status to other drugs, medicaments and biological substances; Z88.2 Allergy status to sulfonamides; Z88.5 Allergy status to narcotic agent; Z79.899 Other long term (current) drug therapy; Z79.01 Long term (current) use of anticoagulants; Z79.890 Hormone replacement therapy; Z96.643 Presence of artificial hip joint, bilateral
CPT/HCPCS: 00811; 36415; 74177; 80053; 81001; 83690; 85025; 87502; 93005; 93010; 96375; 99285-25; A9270; C9113; C9803; J1170; J1720; J1815; J2250; J2270; J2704; J2930; J3490; J7030; J7121; J7512; Q9967; U0002

== ENCOUNTER 2023-09-22 02:10 | Emergency (ER) | payer MEDICARE, OTHER ==
[~2023-09-22] VITALS: Ht 175.3 cm; Wt 85.4 kg
[~2023-09-22 02:10] MED LIST changes: +DELZICOL400 M1 PO; +LEVETIRACETAM500 MG PO; +LEVOTHYROXINE88 MC1 PO; +PANTOPRAZOLE SO40 MG PO; +PREDNISONE20 MG PO
[2023-09-22 02:48] LABS: BASOPHILS 0.7 % (0-2); EOSINOPHILS 2.7 % (0-6); HEMATOCRIT 43.4 % (35.0-50.0); HEMOGLOBIN 14.2 g/dL (12.0-18.0); LYMPHOCYTES 12.6 % (24-44); MCH 27.2 (27-36); MCHC 32.6 g/dl (30-36); MCV 83.5 fl (81-99); MONOCYTES 5.3 % (0-12); NEUTROPHILS 78.7 % (39-80); PLATELET COUNT 230 K/uL (140-440); RDW 15.7 (10.5-15.0)
[2023-09-22 03:02] LABS: ALBUMIN 3.1 g/dL (3.4-5.0); ALBUMIN/GLOBULIN RATIO 0.72 (1.1-2.4); ALCOHOL, MEDICAL <3 ng/dL (<3); ALKALINE PHOSPHATASE 87 U/L (46-116); ALT (SGPT) 19 U/L (14-59); ANION GAP 15.1 (7-21); AST (SGOT) 18 U/L (15-37); BILIRUBIN, TOTAL 0.7 ng/dL (0.2-1.0); BUN/CREATININE RATIO 17.58 (6.0-28.6); CARBON DIOXIDE 26 mmol/L (21-32); CHLORIDE 100 mmol/L (98-107); CREATININE, SERUM 0.91 mg/dL (0.70-1.30); GLOMERULAR FILTRATION RATE,EST 90 mL/min (>60); MAGNESIUM 2.2 mg/dL (1.8-2.4); POTASSIUM 4.1 mmol/L (3.5-5.1); PROTEIN, TOTAL 7.4 g/dL (6.4-8.2); UREA NITROGEN 16 mg/dL (7-18)
[2023-09-22 03:35] LABS: BILIRUBIN, URINE NEGATIVE (negative); BLOOD/HGB, URINE NEGATIVE (Negative); KETONE, URINE NEGATIVE (Negative); LEUK ESTERASE, URINE NEGATIVE (negative); NITRITE, URINE NEGATIVE (negative); PH, URINE 6.5 (5-7)
[2023-09-22 04:11] VITALS: BP 122/55
[2023-09-22 04:15] LABS: AMPHETAMINES, URINE NEGATIVE (NEGATIVE); BARBITURATES, URINE NEGATIVE (NEGATIVE); BENZODIAZEPINE, URINE NEGATIVE (NEGATIVE); CANNABINOID, URINE POSITIVE (NEGATIVE); COCAINE, URINE NEGATIVE (NEGATIVE); ECSTASY, URINE NEGATIVE (NEGATIVE); METHADONE, URINE NEGATIVE (NEGATIVE); OPIATES, URINE NEGATIVE (NEGATIVE); OXYCODONE, URINE NEGATIVE (NEGATIVE); PHENCYCLIDINE, URINE NEGATIVE (NEGATIVE)
[2023-09-22 04:36] LABS: BUPRENORPHINE, URINE NEGATIVE (NEGATIVE); FENTANYL, URINE NEGATIVE (NEGATIVE)
== END 2023-09-22 04:15 | disposition home or self-care (01) ==
LOC: ED 02:10
PROVIDERS: Internal Medicine
DX: G40.909 Epilepsy, unspecified, not intractable, without status epilepticus (principal); I10 Essential (primary) hypertension; E11.9 Type 2 diabetes mellitus without complications; F03.90 Unspecified dementia, unspecified severity, without behavioral disturbance, psychotic disturbance, mood disturbance, and anxiety; Z96.643 Presence of artificial hip joint, bilateral; Z88.0 Allergy status to penicillin; Z88.5 Allergy status to narcotic agent; Z88.2 Allergy status to sulfonamides; Z79.890 Hormone replacement therapy; Z79.899 Other long term (current) drug therapy
CPT/HCPCS: 36415; 70450; 80053; 80307; 81003; 83735; 85025; 99284-25; G0480

== ENCOUNTER 2024-04-02 18:00 | Emergency (ER) | payer MEDICARE, OTHER ==
[~2024-04-02] VITALS: Ht 175.3 cm; Wt 79.4 kg
[2024-04-02 18:15] LABS: BASOPHILS 0.5 % (0-2); EOSINOPHILS 0.8 % (0-6); HEMATOCRIT 37.8 % (35.0-50.0); HEMOGLOBIN 12.6 g/dL (12.0-18.0); LYMPHOCYTES 13.4 % (24-44); MCH 26.7 (27-36); MCHC 33.3 g/dl (30-36); MCV 80.3 fl (81-99); MONOCYTES 5.9 % (0-12); NEUTROPHILS 79.4 % (39-80); PLATELET COUNT 247 K/uL (140-440); RBC 4.71 M/ul (4.3-5.7); RDW 15.3 (10.5-15.0)
[2024-04-02 18:27] LABS: ALBUMIN 3.1 g/dL (3.4-5.0); ALBUMIN/GLOBULIN RATIO 0.76 (1.1-2.4); ANION GAP 14.7 (7-21); BILIRUBIN, TOTAL 0.7 ng/dL (0.2-1.0); BUN/CREATININE RATIO 18.18 (6.0-28.6); CALCIUM 8.5 mg/dL (8.5-10.1); CREATININE, SERUM 0.88 mg/dL (0.70-1.30); POTASSIUM 3.7 mmol/L (3.5-5.1); PROTEIN, TOTAL 7.2 g/dL (6.4-8.2)
[2024-04-02 18:40] LABS: AMPHETAMINES, URINE NEGATIVE (NEGATIVE); BARBITURATES, URINE NEGATIVE (NEGATIVE); BENZODIAZEPINE, URINE NEGATIVE (NEGATIVE); BUPRENORPHINE, URINE NEGATIVE (NEGATIVE); CANNABINOID, URINE POSITIVE (NEGATIVE); COCAINE, URINE NEGATIVE (NEGATIVE); ECSTASY, URINE NEGATIVE (NEGATIVE); FENTANYL, URINE NEGATIVE (NEGATIVE); METHADONE, URINE NEGATIVE (NEGATIVE); OPIATES, URINE POSITIVE (NEGATIVE); OXYCODONE, URINE NEGATIVE (NEGATIVE); PHENCYCLIDINE, URINE NEGATIVE (NEGATIVE)
[2024-04-02 18:45] LABS: ABO A; ANTIBODY SCREEN NEGATIVE; RH POSITIVE
[2024-04-02] MEDS ORDERED: ondansetron HCL 4 MG/2 ML VIAL IV ONE (19:15)
[2024-04-02] MEDS ORDERED: MORPHINE SULFATE 4 MG/ML VIAL IV ONE (19:30)
[2024-04-02 20:00] VITALS: BP 122/60
== END 2024-04-02 20:00 | disposition home or self-care (01) ==
LOC: ED 18:00
PROVIDERS: Emergency Medicine
DX: S00.81XA Abrasion of other part of head, initial encounter (principal); R51.9 Headache, unspecified; R07.9 Chest pain, unspecified; R10.9 Unspecified abdominal pain; M79.602 Pain in left arm; I10 Essential (primary) hypertension; E11.9 Type 2 diabetes mellitus without complications; F03.90 Unspecified dementia, unspecified severity, without behavioral disturbance, psychotic disturbance, mood disturbance, and anxiety; W18.30XA Fall on same level, unspecified, initial encounter; Z86.73 Personal history of transient ischemic attack (TIA), and cerebral infarction without residual deficits; Z96.641 Presence of right artificial hip joint; Z96.642 Presence of left artificial hip joint; Z88.0 Allergy status to penicillin; Z88.5 Allergy status to narcotic agent; Z88.2 Allergy status to sulfonamides; Z88.8 Allergy status to other drugs, medicaments and biological substances; Z79.899 Other long term (current) drug therapy; Z79.02 Long term (current) use of antithrombotics/antiplatelets; Z79.890 Hormone replacement therapy
CPT/HCPCS: 36415; 70450; 71260; 72125; 74177; 80053; 80307; 83690; 85025; 86850; 86900; 86901; G0480; J2270; J2405; Q9967

== ENCOUNTER 2024-06-18 17:56 | Emergency (ER) | payer MEDICARE, OTHER ==
[2024-06-18 18:15] LABS: BASOPHILS 0.5 % (0-2); EOSINOPHILS 0.4 % (0-6); HEMATOCRIT 41.5 % (35.0-50.0); HEMOGLOBIN 13.6 g/dL (12.0-18.0); LYMPHOCYTES 5.8 % (24-44); MCH 26.2 (27-36); MCHC 32.7 g/dl (30-36); MCV 79.9 fl (81-99); MONOCYTES 5.4 % (0-12); NEUTROPHILS 87.9 % (39-80); PLATELET COUNT 303 K/uL (140-440); RBC 5.19 M/ul (4.3-5.7); RDW 16.9 (10.5-15.0)
[2024-06-18] MEDS ORDERED: DIPHTH,PERTUSS(ACELL),TET VAC 0.5 ML SYRINGE IM ONE (18:15)
[2024-06-18 18:49] LABS: ALBUMIN 3.1 g/dL (3.4-5.0); ALBUMIN/GLOBULIN RATIO 0.74 (1.1-2.4); ALCOHOL, MEDICAL <3 ng/dL (<3); ALKALINE PHOSPHATASE 92 U/L (46-116); ALT (SGPT) 20 U/L (14-59); ANION GAP 13.1 (7-21); AST (SGOT) 16 U/L (15-37); BUN/CREATININE RATIO 15.45 (6.0-28.6); CALCIUM 9.1 mg/dL (8.5-10.1); CARBON DIOXIDE 29 mmol/L (21-32); CHLORIDE 101 mmol/L (98-107); GLOMERULAR FILTRATION RATE,EST 71 mL/min (>60); POTASSIUM 4.1 mmol/L (3.5-5.1); PROTEIN, TOTAL 7.3 g/dL (6.4-8.2); UREA NITROGEN 17 mg/dL (7-18)
[2024-06-18 18:56] LABS: ABO A; ANTIBODY SCREEN NEGATIVE; RH POSITIVE
[2024-06-18] MEDS ORDERED: SODIUM CHLORIDE 0.9% 1,000 ML IV PRN (19:15)
[2024-06-18] MEDS ORDERED: fentaNYL citrate 100 MCG/2 ML VIAL IV PRN (19:15)
--- NOTE | 2024-06-18 20:52 | EKG ---
[facility] [address] [facility] [place] [address] Signed Normal sinus rhythm Left axis deviation Minimal voltage criteria for LVH, may be normal variant ( [place] product ) Abnormal ECG When compared with ECG of 03-JUN-2023 09:45, Incomplete right bundle branch block is no longer present Confirmed by Tr Beltran MD ([id number]) on 06/18/2024 8:52:09 PM Electronically Signed By: TR BELTRAN DO 06/18/242051 PATIENT NAME: JOSE RAFAEL WALKER SIDNEY Electrocardiogram DATE OF : 50 PHYSICIAN: TR BELTRAN DO REPORT #: [id number] REPORT IS CONFIDENTIAL AND NOT TO BE RELEASED WITHOUT AUTHORIZATION
[2024-06-18 22:13] LABS: AMPHETAMINES, URINE NEGATIVE (NEGATIVE); BARBITURATES, URINE NEGATIVE (NEGATIVE); BENZODIAZEPINE, URINE NEGATIVE (NEGATIVE); BUPRENORPHINE, URINE NEGATIVE (NEGATIVE); CANNABINOID, URINE POSITIVE (NEGATIVE); ECSTASY, URINE NEGATIVE (NEGATIVE); FENTANYL, URINE NEGATIVE (NEGATIVE); METHADONE, URINE NEGATIVE (NEGATIVE); OPIATES, URINE NEGATIVE (NEGATIVE); OXYCODONE, URINE NEGATIVE (NEGATIVE); PHENCYCLIDINE, URINE NEGATIVE (NEGATIVE)
[2024-06-18 22:28] LABS: COCAINE, URINE NEGATIVE (NEGATIVE)
[2024-06-18 23:09] VITALS: BP 133/49
[2024-06-18] MEDS ORDERED: OXYCODONE/ACETAMINOPHEN 1 TAB HOME.PACK PO ONE (23:15)
[2024-06-18] MEDS ORDERED: MORPHINE SULFATE 15 MG TAB PO ONE (23:30)
== END 2024-06-18 23:44 | disposition home or self-care (01) ==
LOC: ED 17:56
PROVIDERS: Emergency Medicine
DX: S00.81XA Abrasion of other part of head, initial encounter (principal); M25.511 Pain in right shoulder; M25.551 Pain in right hip; E11.9 Type 2 diabetes mellitus without complications; I10 Essential (primary) hypertension; F03.90 Unspecified dementia, unspecified severity, without behavioral disturbance, psychotic disturbance, mood disturbance, and anxiety; Z88.0 Allergy status to penicillin; Z86.73 Personal history of transient ischemic attack (TIA), and cerebral infarction without residual deficits; Z88.2 Allergy status to sulfonamides; Z88.8 Allergy status to other drugs, medicaments and biological substances; Z88.5 Allergy status to narcotic agent; Z79.899 Other long term (current) drug therapy; Z79.890 Hormone replacement therapy; Z79.02 Long term (current) use of antithrombotics/antiplatelets; W18.30XA Fall on same level, unspecified, initial encounter
CPT/HCPCS: 36415; 70450; 72125; 73030; 73502; 80053; 80307; 82553; 83605; 83690; 85025; 86850; 86900; 86901; 90471; 90715; 93005; 93010; 96374; 99285-25; G0480; J3010

== ENCOUNTER 2024-10-06 12:38 | Emergency (ER) | payer MEDICARE, OTHER ==
[~2024-10-06] VITALS: Ht 175.3 cm; Wt 80.7 kg
[2024-10-06] MEDS ORDERED: MULTIVITAMINS 10 ML,FOLIC ACID 1 MG,THIAMINE HCL 100 MG in SODIUM CHLORIDE 0.9% 1,000 ML IV ONE (13:00)
[2024-10-06 13:06] LABS: BASOPHILS 0.3 % (0-2); EOSINOPHILS 0.3 % (0-6); HEMATOCRIT 40.4 % (35.0-50.0); HEMOGLOBIN 13.2 g/dL (12.0-18.0); LYMPHOCYTES 7.4 % (24-44); MCH 25.3 (27-36); MCHC 32.7 g/dl (30-36); MCV 77.6 fl (81-99); MONOCYTES 4.4 % (0-12); NEUTROPHILS 87.6 % (39-80); PLATELET COUNT 298 K/uL (140-440); RBC 5.21 M/ul (4.3-5.7); RDW 16.5 (10.5-15.0)
[2024-10-06] MEDS ORDERED: FOLIC ACID 1 MG/0.2 ML ML ONE (13:19)
[2024-10-06 13:21] LABS: ALBUMIN 3.3 g/dL (3.4-5.0); ALBUMIN/GLOBULIN RATIO 0.75 (1.1-2.4); ANION GAP 14.8 (7-21); BILIRUBIN, TOTAL 1.7 mg/dL (0.2-1.0); BUN/CREATININE RATIO 29.88 (6.0-28.6); CALCIUM 9.4 mg/dL (8.5-10.1); CREATININE, SERUM 0.87 mg/dL (0.70-1.30); MAGNESIUM 2.2 mg/dL (1.8-2.4); POTASSIUM 3.8 mmol/L (3.5-5.1); PROTEIN, TOTAL 7.7 g/dL (6.4-8.2)
[2024-10-06 14:41] LABS: BILIRUBIN, URINE POSITIVE (negative); BLOOD/HGB, URINE NEGATIVE (Negative); KETONE, URINE TRACE (Negative); LEUK ESTERASE, URINE NEGATIVE (negative); NITRITE, URINE NEGATIVE (negative)
[2024-10-06 14:47] LABS: BACTERIA, URINE NONE SEEN /hpf (negative); CASTS, URINE GRANULAR 1+ \\lpf; COLLECTION TYPE, URINE CLEAN CATCH; CRYSTALS, URINE NONE SEEN (0-1+); EPITHELIAL CELLS, URINE SQUAMOUS 1+ /lpf (0-1+); RED BLOOD CELLS, URINE 0-1 /hpf (0-5); REFLEX CULTURE, URINE No (No)
[2024-10-06 15:04] LABS: AMPHETAMINES, URINE NEGATIVE (NEGATIVE); BARBITURATES, URINE NEGATIVE (NEGATIVE); BENZODIAZEPINE, URINE NEGATIVE (NEGATIVE); BUPRENORPHINE, URINE NEGATIVE (NEGATIVE); CANNABINOID, URINE POSITIVE (NEGATIVE); COCAINE, URINE NEGATIVE (NEGATIVE); ECSTASY, URINE NEGATIVE (NEGATIVE); FENTANYL, URINE NEGATIVE (NEGATIVE); METHADONE, URINE NEGATIVE (NEGATIVE); OPIATES, URINE POSITIVE (NEGATIVE); PHENCYCLIDINE, URINE NEGATIVE (NEGATIVE)
[2024-10-06 15:19] LABS: OXYCODONE, URINE NEGATIVE (NEGATIVE)
[2024-10-06 16:04] VITALS: BP 149/51
== END 2024-10-06 15:34 | disposition home or self-care (01) ==
LOC: ED 12:38
PROVIDERS: Emergency Medicine
DX: S00.83XA Contusion of other part of head, initial encounter (principal); S39.012A Strain of muscle, fascia and tendon of lower back, initial encounter; W19.XXXA Unspecified fall, initial encounter; E11.9 Type 2 diabetes mellitus without complications; F03.90 Unspecified dementia, unspecified severity, without behavioral disturbance, psychotic disturbance, mood disturbance, and anxiety; Z79.01 Long term (current) use of anticoagulants; Z79.899 Other long term (current) drug therapy; Z79.890 Hormone replacement therapy; Z88.0 Allergy status to penicillin; Z88.6 Allergy status to analgesic agent; Z88.5 Allergy status to narcotic agent; Z88.2 Allergy status to sulfonamides; Z88.8 Allergy status to other drugs, medicaments and biological substances
CPT/HCPCS: 36415; 70450; 71260; 72125; 72128; 72131; 74177; 80053; 80307; 81001; 83690; 83735; 84484; 85025; 93005; 93010; 99284-25; G0480; J3411; J7030; Q9967

== ENCOUNTER 2025-01-12 20:47 | Emergency (ER) | payer MEDICARE, OTHER ==
[~2025-01-12] VITALS: Ht 175.3 cm; Wt 81.1 kg
[2025-01-12 21:13] LABS: BASOPHILS 0.4 % (0.2-1.2); EOSINOPHILS 0.1 % (0.8-7.0); HEMATOCRIT 41.2 % (40.1-51.0); HEMOGLOBIN 13.4 g/dL (13.7-17.5); LYMPHOCYTES 10.3 % (21.8-53.1); MCHC 32.5 g/dL (32.3-36.5); MONOCYTES 5.3 % (5.3-12.2); NEUTROPHILS 83.7 % (34.0-67.9); PLATELET COUNT 290 K/uL (163-337); RBC 5.35 M/uL (4.63-6.08)
[2025-01-12 21:31] LABS: ALBUMIN 3.4 g/dL (3.4-5.0); ALBUMIN/GLOBULIN RATIO 0.79 (1.1-2.4); ALCOHOL, MEDICAL <3 ng/dL (<3); ALKALINE PHOSPHATASE 102 U/L (46-116); ALT (SGPT) 28 U/L (14-59); ANION GAP 13.8 (7-21); AST (SGOT) 17 U/L (15-37); BILIRUBIN, TOTAL 1.5 mg/dL (0.2-1.0); BUN/CREATININE RATIO 31.08 (6.0-28.6); CARBON DIOXIDE 27 mmol/L (21-32); CHLORIDE 99 mmol/L (98-107); CREATININE, SERUM 0.74 mg/dL (0.70-1.30); GLOMERULAR FILTRATION RATE,EST 95 mL/min (>60); POTASSIUM 3.8 mmol/L (3.5-5.1); PROTEIN, TOTAL 7.7 g/dL (6.4-8.2); UREA NITROGEN 23 mg/dL (7-18)
[2025-01-12 21:55] LABS: ABO A; ANTIBODY SCREEN NEGATIVE; RH POSITIVE
[2025-01-12] MEDS ORDERED: HUMAN PROTHROMBIN COMPLX(PCC) 500 UNIT/20 ML VIAL IV ONE (22:15)
[2025-01-12] MEDS ORDERED: SODIUM CHLORIDE 0.9% 50 ML IV PRN (22:15)
[2025-01-12 22:16] LABS: INR 1.19 (0.80-1.30); PROTIME 14.7 Sec (11.2-14.2)
[2025-01-12 22:18] LABS: PARTIAL THROMBOPLASTIN TIME 37.5 Sec (22.9-41.3)
[2025-01-12 23:14] LABS: BILIRUBIN, URINE NEGATIVE (negative); BLOOD/HGB, URINE NEGATIVE (Negative); KETONE, URINE SMALL (Negative); LEUK ESTERASE, URINE NEGATIVE (negative); NITRITE, URINE NEGATIVE (negative); PH, URINE 5.5 (5-7)
[2025-01-12] MEDS ORDERED: MORPHINE SULFATE 4 MG/ML VIAL IV ONE (23:15)
[2025-01-12 23:29] LABS: AMPHETAMINES, URINE NEGATIVE (NEGATIVE); BARBITURATES, URINE NEGATIVE (NEGATIVE); BENZODIAZEPINE, URINE NEGATIVE (NEGATIVE); BUPRENORPHINE, URINE NEGATIVE (NEGATIVE); CANNABINOID, URINE POSITIVE (NEGATIVE); COCAINE, URINE NEGATIVE (NEGATIVE); ECSTASY, URINE NEGATIVE (NEGATIVE); FENTANYL, URINE NEGATIVE (NEGATIVE); METHADONE, URINE NEGATIVE (NEGATIVE); OPIATES, URINE NEGATIVE (NEGATIVE); OXYCODONE, URINE NEGATIVE (NEGATIVE); PHENCYCLIDINE, URINE NEGATIVE (NEGATIVE)
[2025-01-12 23:31] LABS: EPITHELIAL CELLS, URINE SQUAMOUS 1+ /lpf (0-1+)
[2025-01-12 23:32] LABS: BACTERIA, URINE RARE /hpf (negative); CASTS, URINE HYALINE 1+ \\lpf; COLLECTION TYPE, URINE CLEAN CATCH; CRYSTALS, URINE NONE SEEN (0-1+); REFLEX CULTURE, URINE No (No)
[2025-01-13 00:22] VITALS: BP 168/66
== END 2025-01-13 00:26 | disposition short-term general hospital (02) ==
LOC: ED 20:47
PROVIDERS: Family Medicine
DX: S06.6XAA Traumatic subarachnoid hemorrhage with loss of consciousness status unknown, initial encounter (principal); S12.300A Unspecified displaced fracture of fourth cervical vertebra, initial encounter for closed fracture; I60.9 Nontraumatic subarachnoid hemorrhage, unspecified; W18.30XA Fall on same level, unspecified, initial encounter; I48.91 Unspecified atrial fibrillation; M19.90 Unspecified osteoarthritis, unspecified site; I10 Essential (primary) hypertension; E11.9 Type 2 diabetes mellitus without complications; Z88.0 Allergy status to penicillin; Z88.5 Allergy status to narcotic agent; Z79.84 Long term (current) use of oral hypoglycemic drugs; Z79.899 Other long term (current) drug therapy
CPT/HCPCS: 36415; 70450; 71260; 72125; 72170; 74177; 80053; 80307; 81001; 85025; 85610; 85730; 86850; 86900; 86901; 94799; 99284-25; G0480; J2270; J7168

== ENCOUNTER 2025-02-01 15:49 | Emergency (ER) | payer MEDICARE, OTHER ==
[~2025-02-01] VITALS: Ht 175.3 cm; Wt 74.4 kg
[2025-02-01] MEDS ORDERED: fentaNYL citrate 100 MCG/2 ML VIAL IV ONE (16:00)
[2025-02-01] MEDS ORDERED: ondansetron HCL 4 MG/2 ML VIAL IV ONE (16:00)
[2025-02-01 16:07] LABS: BASOPHILS 0.6 % (0.2-1.2); EOSINOPHILS 2.4 % (0.8-7.0); HEMATOCRIT 35.8 % (40.1-51.0); HEMOGLOBIN 11.5 g/dL (13.7-17.5); LYMPHOCYTES 19.4 % (21.8-53.1); MCH 25.2 PG (25.7-32.2); MCHC 32.1 g/dL (32.3-36.5); MCV 78.3 fL (79.0-92.2); MONOCYTES 6.5 % (5.3-12.2); NEUTROPHILS 70.7 % (34.0-67.9); PLATELET COUNT 307 K/uL (163-337); RBC 4.57 M/uL (4.63-6.08)
[2025-02-01 16:24] LABS: ALBUMIN/GLOBULIN RATIO 0.75 (1.1-2.4); ALCOHOL, MEDICAL <3 ng/dL (<3); ALKALINE PHOSPHATASE 104 U/L (46-116); ALT (SGPT) 24 U/L (14-59); ANION GAP 11.2 (7-21); AST (SGOT) 12 U/L (15-37); BILIRUBIN, TOTAL 0.8 mg/dL (0.2-1.0); BUN/CREATININE RATIO 20.51 (6.0-28.6); CALCIUM 9.3 mg/dL (8.5-10.1); CARBON DIOXIDE 28 mmol/L (21-32); CHLORIDE 102 mmol/L (98-107); CREATININE, SERUM 0.78 mg/dL (0.70-1.30); GLOMERULAR FILTRATION RATE,EST 94 mL/min (>60); POTASSIUM 4.2 mmol/L (3.5-5.1); UREA NITROGEN 16 mg/dL (7-18)
[2025-02-01 16:41] LABS: ABO A; RH POSITIVE
[2025-02-01 16:42] LABS: ANTIBODY SCREEN NEGATIVE
[2025-02-01] MEDS ORDERED: HYDROmorphone HCL 1 MG/ML SYR IV ONE ×2 (16:45→17:30)
[2025-02-01 19:15] VITALS: BP 158/61
== END 2025-02-01 19:15 | disposition home or self-care (01) ==
LOC: ED 15:49
PROVIDERS: Emergency Medicine
DX: S06.5XAA Traumatic subdural hemorrhage with loss of consciousness status unknown, initial encounter (principal); I10 Essential (primary) hypertension; E11.9 Type 2 diabetes mellitus without complications; Z79.899 Other long term (current) drug therapy; Z86.73 Personal history of transient ischemic attack (TIA), and cerebral infarction without residual deficits; Z86.69 Personal history of other diseases of the nervous system and sense organs; Z96.641 Presence of right artificial hip joint; W18.30XA Fall on same level, unspecified, initial encounter
CPT/HCPCS: 36415; 70450; 71260; 72125; 74177; 80053; 80307; 85025; 86850; 86900; 86901; 94799; 99283-25; G0480; J1171; J2405; J3010; Q9967

== ENCOUNTER 2025-02-20 11:49 | Inpatient (IN) | payer MEDICARE, OTHER ==
[~2025-02-20] VITALS: Ht 175.3 cm; Wt 67.4 kg
[2025-02-20] MEDS ORDERED: SODIUM CHLORIDE 0.9% 1,000 ML IV ONE (12:00)
[2025-02-20 12:07] LABS: BASOPHILS 0.3 % (0.2-1.2); EOSINOPHILS 0.1 % (0.8-7.0); LYMPHOCYTES 4.2 % (21.8-53.1); MCH 25.4 PG (25.7-32.2); MCHC 32.2 g/dL (32.3-36.5); MCV 78.8 fL (79.0-92.2); MONOCYTES 6.0 % (5.3-12.2); NEUTROPHILS 89.1 % (34.0-67.9); RBC 4.85 M/uL (4.63-6.08)
[2025-02-20] MEDS ORDERED: LISINOPRIL20 MG PO (12:17)
[2025-02-20] MEDS ORDERED: LEVETIRACETAM750 MG PO (12:17)
[2025-02-20] MEDS ORDERED: METOPROLOL TART25 MG (12:18)
[2025-02-20 12:25] LABS: ALCOHOL, MEDICAL <3 ng/dL (<3); ALT (SGPT) 24 U/L (14-59); AST (SGOT) 23 U/L (15-37); GLOMERULAR FILTRATION RATE,EST 75 mL/min (>60); PROTEIN, TOTAL 7.2 g/dL (6.4-8.2); UREA NITROGEN 65 mg/dL (7-18)
[2025-02-20 13:43] LABS: BLOOD/HGB, URINE TRACE-I (Negative); KETONE, URINE SMALL (Negative); LEUK ESTERASE, URINE NEGATIVE (negative); NITRITE, URINE NEGATIVE (negative)
[2025-02-20 13:54] LABS: BACTERIA, URINE NONE SEEN /hpf (negative); CRYSTALS, URINE NONE SEEN (0-1+); EPITHELIAL CELLS, URINE 0 /lpf (0-1+)
[2025-02-20 13:55] LABS: REFLEX CULTURE, URINE No (No)
[2025-02-20 13:58] LABS: AMPHETAMINES, URINE NEGATIVE (NEGATIVE); BARBITURATES, URINE NEGATIVE (NEGATIVE); BENZODIAZEPINE, URINE NEGATIVE (NEGATIVE); CANNABINOID, URINE POSITIVE (NEGATIVE); COCAINE, URINE NEGATIVE (NEGATIVE); ECSTASY, URINE NEGATIVE (NEGATIVE); FENTANYL, URINE NEGATIVE (NEGATIVE); METHADONE, URINE NEGATIVE (NEGATIVE); OPIATES, URINE NEGATIVE (NEGATIVE); OXYCODONE, URINE NEGATIVE (NEGATIVE); PHENCYCLIDINE, URINE NEGATIVE (NEGATIVE)
--- NOTE | 2025-02-20 14:48 | EKG ---
[facility] [address] [facility] [place] [address] Signed Normal sinus rhythm Normal ECG When compared with ECG of 06-OCT-2024 12:46, No significant change was found Confirmed by Willie Morales MD ([id number]) on 02/20/2025 2:47:59 PM Electronically Signed By: WILLIE MORALES MD 02/20/25 1448 PATIENT NAME: JOSE RAFAEL WALKER SIDNEY Electrocardiogram DATE OF : 50 PHYSICIAN: WILLIE MORALES MD REPORT #: [id number] REPORT IS CONFIDENTIAL AND NOT TO BE RELEASED WITHOUT AUTHORIZATION
[2025-02-20 15:51] VITALS: BP 154/69
--- NOTE | 2025-02-20 16:23 | NUR ---
PT BROUGHT IN STRETCHER FROM ER. PT REPORT RECIEVED FROM KARISSA ARTEAGA. PT WAS MOVED VIA SLIDE SHEET. PT CURRENTLY HAS A C COLLAR IN PLACE. JNENI HANCOCK STATES THE PT ARRIVED WITH C COLLAR IN PLACE AND WAS UNSURE IF C COLLAR IS CORRECT FOR THIS PT. MD ANSARI WILL BE NOTIFIED OF THIS. PT IS CURRENTLY ALERT X3 WITH REACURRENT HALLUCINATIONS. PT IS COMFORTABLE AT THIS TIME AND EXPRESSES NO CURRENT NEEDS. PT DOES HAVE A WOUND ON MID SPINE AND WOUND CONSULT WILL BE ORDERED. PT ORIENTED TO ROOM AND HAS CALL LIGHT IN REACH AND BED ALARM ACTIVE FOR PT SAFETY AT THIS TIME.
[2025-02-20 16:47] LABS: BASOPHILS 0.2 % (0.2-1.2); EOSINOPHILS 0.1 % (0.8-7.0); LYMPHOCYTES 4.3 % (21.8-53.1); MCH 25.4 PG (25.7-32.2); MCHC 32.6 g/dL (32.3-36.5); MCV 77.8 fL (79.0-92.2); MONOCYTES 6.3 % (5.3-12.2); NEUTROPHILS 88.6 % (34.0-67.9); RBC 4.65 M/uL (4.63-6.08)
--- NOTE | 2025-02-20 16:50 | NUR ---
ALERT AND ORIENTED IN BED, SISTER IN ROOM. PATIENT LIVES ALONE IN [facility]. HAS CANES, WALKERS, SHOWER CHAIR AND DIABETIC SUPPLIES. STATES HE DROVE PRIOR TO NECK FRACTURES. HAS A COUPLE FAMILY MEMBERS WHO CAN OCCASIONALLY HELP WITH TRANSPORTATION. PATIENT DENIES FINANCIAL DIFFICULTIES, ABLE TO PAY UTILITIES, FOOD AND MEDICATIONS. RECENT STAY AT [facility]. THEY ATTEMPTED TO PLACE PATIENT AT SNF IN [place], PER SISTER. HOWEVER, HE LEFT HOSPITAL AMA WITH A BROTHER AND A DIFFERENT SISTER. PATIENT STATES HE MAY AGREE TO SNF IF IT IS LOCAL IF IT IS A RECOMMENDATION BY PT/OT. WILL DISCUSS FURTHER AFTER FURTHER EVAL/TREATMENT HAS BEEN DONE.
[2025-02-20 17:16] LABS: PHOSPHORUS, INORGANIC 3.1 mg/dL (2.5-4.9); TSH, 3RD GENERATION 1.505 uIU/mL (0.358-3.740)
--- NOTE | 2025-02-20 17:44 | NUR ---
PT LAYING IN BED AT THIS TIME WITH C COLLAR IN PLACE. PT IS COMFORTABLE AT THIS TIME AND IMAGING IS CURRENTLY IN ROOM. PT FAMILY IS IN WALKER AT THIS TIME CALL LIGHT IN REACH AND CURTAIN OPEN AND BED ALARM ON FOR PT SAFETY.
[2025-02-20 18:00] VITALS: BP 151/60
--- NOTE | 2025-02-20 18:37 | NUR ---
PT SITTING UP IN BED AT THIS TIME WITH FAMILY IN ROOM. PT STILL CONFUSED AND HALLUCINATING, PT FAMILY HAS NO CURRENT CONCERNS PT CALL LIGHT IN REACH AND BED ALARM ON FOR PT SAFETY.
--- NOTE | 2025-02-20 19:21 | NUR ---
REPORT RECEIVED FROM DAY SHIFT RN. PATIENT RESTING IN BED WITH EYES CLOSED. RESPIRATIONS EVEN AND UNLABORED. CALL LIGHT IN REACH.
--- NOTE | 2025-02-20 20:12 | NUR ---
PATIENT INCONTINENT OF URINE. NEW BREIF AND LARRY IN PLACE AFTER PERICARE PROVIDED. PUREWICK PLACED AFTER SANTIAGO CARE PROVIDED. WOUND CARE NURSE DANIELA IN ROOM. ALLYVEN PLACED ON BACK WOUND. PATIENT REPOSITIONED IN BED WITH PILLOWS PLACED UNDER BILAT HIPS. PATIENT STATES "THIS FEELS SO MUCH BETTER". PATIENT DENIES FURTHER NEEDS AT THIS TIME. CALL LIGHT IN REACH. BED ALARM ON.
[2025-02-20] MEDS ORDERED: levETIRAcetam 500 MG TAB PO SCH (21:00)
[2025-02-20 21:03] VITALS: BP 160/59
--- NOTE | 2025-02-20 21:05 | NUR ---
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 BASE IS 90% STABLE ESCHAR AND 10% RED BASE. EDGES VIABLE, NO DISCHARGE OR REDNESS. COVER WITH PINK FOAM DRESSING, CHANGE EVERY 3 DAYS OR PRN. ENSURE TO OFFLOAD PRESSURE WITH PILLOWS AND POSITINING EVERY 2 HOURS AND PRN.
[2025-02-20 21:06] VITALS: BP 160/59
--- NOTE | 2025-02-20 21:30 | NUR ---
PATIENT RESTING IN BED WITH EYES CLOSED. RESPIRATIONS EVEN AND UNLABORED. VS AND I&Os OBTAINED AND RECORDED. SCHEDULED MEDICATION ADMINISTERED. ASSESSMENT COMPLETE. PATIENT DENIES FURTHER NEEDS. CALL LIGHT IN REACH.
--- NOTE | 2025-02-20 23:17 | NUR ---
PATIENT RESTING IN BED WITH EYES CLOSED. RESPIRATIONS EVEN AND UNLABORED. CALL LIGHT IN REACH.
--- NOTE | 2025-02-20 23:45 | NUR ---
PATIENT REPOSITIONED IN BED WITH PILLOW PLACED UNDER RIGHT HIP. NO FURTHER NEEDS. CALL LIGHT IN REACH. BED ALARM ON.
[2025-02-21] VITALS (13 sets, daily range): BP systolic 115–162; BP diastolic 47–56
--- NOTE | 2025-02-21 01:38 | NUR ---
PATIENT RESTING IN BED. VS OBTAINED AND RECORDED. THIS RN ASKED PATIENT IF HE WAS DOING OKAY. PATIENT STATED "YEAH I AM ALRIGHT". PATIENT HAS NO FURTHER NEEDS AT THIS TIME. CALL LIGHT IN REACH. BED ALARM ON.
--- NOTE | 2025-02-21 04:01 | NUR ---
PATIENT RESTING IN BED ON BACK WITH EYES CLOSED. RESPIRATIONS EVEN AND UNLABORED. PATIENT REPOSITIONED IN BED. NO FURTHER NEEDS. CALL LIGHT IN REACH. BED ALARM ON.
[2025-02-21 05:34] LABS: BASOPHILS 0.4 % (0.2-1.2); EOSINOPHILS 1.0 % (0.8-7.0); LYMPHOCYTES 7.6 % (21.8-53.1); MCH 25.4 PG (25.7-32.2); MCHC 31.5 g/dL (32.3-36.5); MCV 80.5 fL (79.0-92.2); MONOCYTES 5.7 % (5.3-12.2); NEUTROPHILS 84.9 % (34.0-67.9); RBC 4.61 M/uL (4.63-6.08)
[2025-02-21 05:53] LABS: ALT (SGPT) 22.0 U/L (14-59); AST (SGOT) 21.0 U/L (15-37); GLOMERULAR FILTRATION RATE,EST 95.0 mL/min (>60); PHOSPHORUS, INORGANIC 3.1 mg/dL (2.5-4.9); PROTEIN, TOTAL 6.7 g/dL (6.4-8.2); UREA NITROGEN 45.0 mg/dL (7-18)
--- NOTE | 2025-02-21 05:54 | NUR ---
PATIENT RESTING IN BED. VS AND I&Os OBTAINED AND RECORDED. PATIENT TALKATIVE AND A&Ox4 THIS AM. PATIENT STATES "I SLEPT SO GOOD LAST NIGHT!". PATIENT ABLE TO DRINK WATER WITHOUT DIFFICULTY. SCHEDULED PO MEDICATION ADMINSITERED. PATIENT NIDA WELL. PATIENT REPOSITIONED IN BED WITH PILLOWS PLACED UNDER BILAT HIPS. PATIENT DENIES FURTHER NEEDS AT THIS TIME. FRESH WATER PROVIDED. CALL LIGHT IN REACH. BED ALARM ON.
[2025-02-21] MEDS ORDERED: LEVOTHYROXINE SODIUM 88 MCG TAB PO SCH (07:00)
--- NOTE | 2025-02-21 07:00 | NUR ---
REPORT RECEVIED FROM BUILDING MECHANIC KARISSA JUNG. PATIENT IS LYING IN BED WITH HOB ELEVATED. PATIENT WITH EYES OPEN AND RESPIRATIONS ARE EVEN AND UNLABORED. C COLLAR IN PLACE. CALL LIGHT AND PERSONAL BELONGINGS ARE WITHIN REACH.
--- NOTE | 2025-02-21 07:22 | NUR ---
UR CLINICAL REVIEW: 2 MN FOR [facility] MEETS INPT FOR DELIRIUM/HYPERNATREMIA WITH NEED FOR IVF AND SERIAL LABS MEDICARE INPT 02/20/25 @ 1510 ORDER MATCHES REG NO AUTH REQUIRED PER MEDICARE GUIDELINES DISCHARGE DISPO PENDING FURTHER CASE MANAGEMENT EVAL
[2025-02-21] MEDS ORDERED: DEXTROSE 5% 1,000 ML IV SCH (07:45)
--- NOTE | 2025-02-21 08:30 | NUR ---
PATIENT IS LYING IN BED WITH HOB ELEVATED. PATIENT WITH C COLLAR IN PLACE. PATIENT IS EATING BREAKFAST AND REPORTS "WILD HALLUCINATIONS". THIS RN STATED THAT SHE WOULD NOTIFIY THE MD. PATIENT EXPRESSED UNDERSTANDING. PATIENT STATED NO FURTHER NEEDS AT THIS TIME. TV IS ON. CALL LIGHT AND PERSONAL BELONGINGS ARE WITHIN REACH.
--- NOTE | 2025-02-21 08:44 | NUR ---
PATIENT IS SITTING IN BED. PATIENT WAS PROVIDED WITH A WARM WASHCLOTH TO WASH FACE AND HANDS. PATIENTS DENTURES WERE CLEANED AND ORAL CARE WAS DONE. PATIENTS MALE PURWICK WAS CHANGED. PATIENT WAS SAT UP IN BED TO EAT BREAKFAST. PATIENT HAS NO FURTHER NEEDS AT THIS TIME AND THE CALL LIGHT IS WITHIN REACH.
[2025-02-21] MEDS ORDERED: METOPROLOL SUCCINATE 50 MG TABCR PO SCH (09:00)
--- NOTE | 2025-02-21 09:13 | NUR ---
PHYSICAL THERAPY IS IN THE ROOM AT THIS TIME AND WORKING WITH THE PATIENT.
--- NOTE | 2025-02-21 09:42 | NUR ---
NOTIFIED OF IV GITA. GAVE VERBAL ORDER TO CHANGE THE IV DOSE TO PO. NO NEW ORDERS AT THIS TIME. CALL ENDED.
[2025-02-21] MEDS ORDERED: levETIRAcetam 500 MG TAB PO SCH (09:45)
--- NOTE | 2025-02-21 09:48 | NUR ---
PATIENT IS SITTING UP IN BED. PATIENTS FAMILY MEMBER (DAWOOD) IS IN THE ROOM. PATIENT WAS PROVIDED WITH COFFEE AND MILK. VITAL SIGNS WERE DONE. CALL LIGHT IN REACH AND NO FURTHER NEEDS AT THIS TIME.
--- NOTE | 2025-02-21 09:50 | NUR ---
SPOKE WITH BROTHER, DAWOOD. DISCUSSED PATIENT NEED FOR SNF. EDUCATED ON SNF AND PATIENT CHOICES FOR FACILITIES. REQUESTING [facility] FOR SNF. ALSO DISCUSSED [employer] AND APPLICATION PROCESS. PHONE NUMBER PROVIDED TO DAWOOD FOR AGING AND DISABILITY FOR [employer]. DENIES ANY QUESTIONS OR NEEDS AT THIS TIME. INFORMED WILL CALL HIM WITH UPDATES.
--- NOTE | 2025-02-21 09:50 | NUR ---
PATIENT IS SITTING IN THE CHAIR WITH BILATERAL LOWER EXTREMITIES ELEVATED. PATIENT WITH EYES OPEN AND RESPIRATIONS ARE EVEN AND UNLABORED. PATIENT IS ALERT AND ORIENTED TO SELF AND PLACE ONLY. PATIENT EDUCATED ON THE MONTH AND WHY HE IS IN THE HOSPITAL. PATIENT EXPRESSED UNDERSTANDING. MALE PUREWICK IN PLACE. PT/OT/ST ARE ORDERED FOR THE PATIENT. IV SITE FLUSHED WITH 10 ML NORMAL SALINE. D5 IS INFUSING AT 100 ML/HR. IV DRESSING IS CLEAN, DRY, AND INTACT. PATIENT IS ON A 60 GRAM CARB DIET AND BOWEL TONES ARE ACTIVE IN ALL FOUR QUADRANTS. PATIENT HAVING REPORTED NAUSEA FOR THE LAST MONTH. MD IS IN THE ROOM AT THIS TIME. PATIENT ALSO REPORTS HAVING HALLUCINATIONS. CARDIAC WITH NORMAL S1 AND S2 ON AUSCULTATION. RADIAL AND PEDAL PULSES ARE STRONG BILATERALLY. NO EDEMA NOTED. CAPILLARY REFILL IN THE UPPER AND LOWER EXTREMITIES IS LESS THAN 3 SECONDS BILATERALLY. SENSATION INTACT BUT PATIENT REPORTS HAVING NUMBNESS IN BILATERAL HEELS AND TOES. PATIENT IS ON ROOM AIR WITH CLEAR LUNGS THROUGHOUT. PATIENT RATED PAIN A 6/10 IN THE RIGHT KNEE. PATIENT IS NOT REQUESTING ANYTHING FOR PAIN AT THIS TIME. SKIN WITH A SCAB AND REDNESS NOTED TO THE RIGHT HEEL. BRUISE BY THE RIGHT EYE. WEAKNESS NOTED TO THE BLE. PATIENT STATED NO FURTHER NEEDS AT THIS TIME. CALL LIGHT AND PERSONAL BELONGINGS ARE WITHIN REACH.
--- NOTE | 2025-02-21 10:24 | NUR ---
PT AND OT ARE IN THE ROOM AT THIS TIME TO POSITION C COLLAR TO MAKE PATIENT MORE COMFORTABLE.
--- NOTE | 2025-02-21 11:08 | NUR ---
PATIENT SITTING UPRIGHT IN CHAIR, FAMILY PRESENT. FLUIDS RUNNING. EYES OPEN, CHEST RISE EQUAL AND UNLABORED. PATIENT AND FAMILY DENY CONCERNS AT THIS TIME. CALL LIGHT AND PERSONAL BELONGINGS IN REACH.
--- NOTE | 2025-02-21 11:09 | NUR ---
REFERRAL FAXED TO [facility]. AUDIE, FROM [facility], STATES THEY ARE UNABLE TO TAKE ANY ADMITS UNTIL NEXT Wednesday02/26/25, AT THE EARLIEST.
--- NOTE | 2025-02-21 11:10 | NUR ---
PT NOT AVAILABLE FOR VISIT. PROVIDED PRAYER.
--- NOTE | 2025-02-21 11:26 | NUR ---
PATIENT IS SITTING UP IN CHAIR. PATIENTS CALL LIGHT IS IN REACH AND NO FURTHER NEEDS AT THIS TIME.
[2025-02-21] MEDS ORDERED: PHARMACY RENAL DOSE ADJUSTMENT 1 DOSE MISC PO SCH (12:00)
--- NOTE | 2025-02-21 12:15 | NUR ---
PATIENT IS SITTING UP IN CHAIR FOR LUNCH. PATIENTS BRIEF AND MALE PUREWICK WERE DRY. PATIENTS CALL LIGHT IN REACH AND NO FURTHER NEEDS AT THIS TIME.
--- NOTE | 2025-02-21 12:17 | NUR ---
UPDATE GIVEN TO HAYES AT THIS TIME.
--- NOTE | 2025-02-21 12:31 | NUR ---
PATIENT WITH NO URINE OUTPUT SINCE JUST BEFORE 0600. BRIEF IS DRY AND MALE PUREWICK IN PLACE. PATIENT STATES "NOT REALLY" TO THIS RN ASKING IF HE FEELS LIKE HE NEEDS TO URINATE. BLADDER SCAN COMPLETE AND SHOWED GREATER THAN 389 ML OF URINE IN THE BLADDER. NOTIFIED AND HAVE TELEPHONE ORDER TO STRAIGHT CATH FOR GREATER THAN 500 ML IN THE BLADDER. NO FURTHER ORDERS AT THIS TIME. CALL ENDED.
--- NOTE | 2025-02-21 13:06 | NUR ---
PATIENT IS SITTING IN THE CHAIR WITH BILATERAL LOWER EXTREMITIES ELEVATED. PATIENT WITH EYES OPEN AND RESPIRATIONS ARE EVEN AND UNLABORED. TV IS ON. INTAKE AND OUTPUT DOCUMENTED IN THE CHART BY KARISSA URIBE. WAFFLE MATTRESS PLACED ON THE PATIENT BED AT THIS TIME. IV FLUIDS CONTINUE INFUSING. LUNCH TRAY REMOVED PER PATIENT REQUEST. PATIENT STATED NO FURTHER NEEDS AT THIS TIME. CALL LIGHT AND PERSONAL BELONGINGS ARE WITHIN REACH.
--- NOTE | 2025-02-21 14:27 | NUR ---
PATIENT IS SITTING IN CHAIR WITH CALL LIGHT IN REACH. WARM BLANKETS WERE PROVIDED FOR PATIENT. NO FURTHER NEEDS AT THIS TIME.
--- NOTE | 2025-02-21 14:28 | NUR ---
PATIENT SITTING IN CHAIR, EYES CLOSED, CHEST RISE EQUAL BILATERALLY AND UN LABORED. PATIENT RESPONDS VERBALLY AND OPENS EYES WHEN SPOKE TO. IV FLUSHED WITH 10 ML NORMAL SALINE. PATIENT ALERT AND ORIENTED X4. PATIENT REPORTS RIGHT KNEE PAIN 9/10, REPORTS TAKING MORPHINE AT HOME FOR PAIN MANAGMENT. PATIENT DENIES FURTHER CONCERNS AT THIS TIME. CALL LIGHT AND PERSONAL BELONGINGS IN REACH. LAB IN THE ROOM AT THIS TIME.
--- NOTE | 2025-02-21 14:44 | NUR ---
NOTIFIED OF PATIENT PAIN OF 9/10 IN THE RIGHT KNEE. STATED HE WOULD PUT IN AN ORDER FOR OXYCODONE. UPDATE GIVEN REGARDING BLADDER SCAN OF 557 ML OF URINE IN THE BLADDER AND GOING TO STRAIGHT CATH. MD EXPRESSED UNDERSTANDING. MD WITH NO FURTHER ORDERS AT THIS TIME. CALL ENDED.
[2025-02-21] MEDS ORDERED: OXYCODONE HCL 5 MG TAB PO PRN (14:45)
[2025-02-21 14:51] LABS: GLOMERULAR FILTRATION RATE,EST 94.0 mL/min (>60); UREA NITROGEN 40.0 mg/dL (7-18)
--- NOTE | 2025-02-21 15:04 | NUR ---
PATIENT WAS LAYING IN CHAIR WHEN BEDBATH WAS COMPLETED BY THIS RACK PULLER. PATIENTS LEGS, ARMS, CHEST AND FRONT PERICARE WAS DONE. THIS TASK WAS STOPPED BECUASE PATIENT WAS BEING TRANSFERED TO CCU BY KARISSA LOZANO AND JOJO.
--- NOTE | 2025-02-21 15:15 | NUR ---
NOTIFIED OF PATIENT SODIUM OF 135 WITH THE 1400 LAB DRAW. STATED HE WILL PUT IN ORDERS TO TRANSFER TO CCU. CALL ENDED.
--- NOTE | 2025-02-21 15:23 | NUR ---
PT TRSF TO 127 VIA CHAIR FROM MS 111 BY RN, BEDSIDE REPORT, PT C/O PAIN, NO IV PATENT, NEW IV FLUIDS ORDERED - DR ON UNIT, CALL LIGHT IN REACH.
--- NOTE | 2025-02-21 15:30 | NUR ---
STRAIGHT CATHETER COMPLETE WITH KARISSA URIBE AND KARISSA MACEDO. PATIENT TOLERATED WELL. 450 ML OF JARROD URINE RECEIVED FROM STRAIGHT CATH. KARISSA MACEDO CALLED AND ASKED IF HE WANTED A CARVALHO CATHETER. TOLD KARISSA MACEDO NO TO THE CARVALHO CATHETER. IV SITE FLUSHED WITH SALINE AND LEAKING NOTED AT THE IV SITE. PATIENT WITH NO COMPLAINTS OF PAIN AT THE IV SITE. PATIENT REMAINS ALERT AND ORIENTED TIMES FOUR. THIS RN LEFT THE FLOOR TO TAKE THE PATIENT TO CCU.
--- NOTE | 2025-02-21 15:35 | NUR ---
REPORT GIVEN TO KARISSA EM IN THE CCU.
[2025-02-21 17:46] LABS: GLOMERULAR FILTRATION RATE,EST 97.0 mL/min (>60); UREA NITROGEN 39.0 mg/dL (7-18)
--- NOTE | 2025-02-21 17:47 | NUR ---
pt set up in chair for meal, brother and sister in room - updated all on dc strategic planner note that [facility] snf may be able to take pt but not until after 02/26/25. family asked. updated family on pcp appt. and [facility] neuro and ortho appts. [facility] records and medlist to chart and rx to pharmacy. call light in reach.
[2025-02-21] MEDS ORDERED: POTASSIUM CHLORIDE 10 MEQ TABCR PO ONE (18:00)
--- NOTE | 2025-02-21 18:07 | NUR ---
CALL TO DR DOMINGUEZ: NEW LABS - NEW ORDERS FOR KCL AND NA 3%, NEW REPEAT LAB 1899. PT VISITING WITH FAMILY AND SPEECH THERAPY HERE. CALL LIGHT IN REACH.
--- NOTE | 2025-02-21 18:34 | NUR ---
PT PERSONAL MEDICATIONS LOCKED IN CLEAR ROOM BOX BY MS STAFF ON ADMIT TO 127. PT HAS HIS DENTURES IN HIS MOUTH.
--- NOTE | 2025-02-21 19:15 | NUR ---
SHIFT REPORT RECEIVED. PATIENT RESTING IN RECLINER EATING DINNER. CALL LIGHT IN REACH.
[2025-02-21 19:34] LABS: GLOMERULAR FILTRATION RATE,EST 98.0 mL/min (>60); UREA NITROGEN 39.0 mg/dL (7-18)
--- NOTE | 2025-02-21 20:15 | NUR ---
PATIENT CALLED FOR ASSISTANCE UP TO THE BATHROOM. PATIENT AMBULATED WELL WITH SBA AND FWW. PATIENT VOIDED AND HAD LARGE BLACK STOOL. NEW ATTENDS IN PLACE. PATIENT ASSISTED WITH SANTIAGO CARE. PATIENT RETURNED TO BED. ASSISTED TO POSITION FOR COMFORT. WAFFEL MATTRESS IN PLACE. 3% SALINE STARTED PER ORDER AND VERBAL DISCUSSION WITH MD AT BEDSIDE. PATIENT PROVIDED FRESH WATER. DISCUSSED NEED FOR FLUID RESTRICTION. PATIENT VERBALIZED UNDERSTANDING. CALL LIGHT IN REACH.
[2025-02-21 21:43] LABS: GLOMERULAR FILTRATION RATE,EST 95.0 mL/min (>60); UREA NITROGEN 39.0 mg/dL (7-18)
--- NOTE | 2025-02-21 22:00 | NUR ---
DISCUSSED PATIENT'S LAB WITH . ORDERS RECEIVED TO REPEAT 50 MLS OF 3% SODIUM AND THEN LABS AT 0200. VERIFIED VIA REPEAT BACK METHOD.
--- NOTE | 2025-02-21 22:27 | NUR ---
PATIENT PROVIDED MEDS PER ORDER AND PRN PAIN MEDS FOR 6/10 BACK AND NECK PAIN. PATIENT TOLERATED PILLS WITHOUT ISSUE. ASSISTED TO REPOSITION FOR COMFORT. LIGHTS DIMMED PER REQUEST. CALL LIGHT IN REACH.
[2025-02-22] VITALS (15 sets, daily range): BP systolic 109–125; BP diastolic 43–107
--- NOTE | 2025-02-22 00:15 | NUR ---
PATIENT RESTING IN BED. EYES CLOSED. VS STABLE. C-COLLAR IN PLACE. HOB ELEVATED. CALL LIGHT IN REACH.
--- NOTE | 2025-02-22 02:15 | NUR ---
LAB IN FOR SCHEDULED DRAW. PATIENT TOLERATED WELL.
[2025-02-22 02:22] LABS: GLOMERULAR FILTRATION RATE,EST 98.0 mL/min (>60); UREA NITROGEN 34.0 mg/dL (7-18)
--- NOTE | 2025-02-22 04:00 | NUR ---
PATIENT RESTING WITH EYES CLOSED. VS STABLE. CALL LIGHT IN REACH.
--- NOTE | 2025-02-22 05:08 | NUR ---
PATIENT ASSISTED UP TO THE BATHROOM. PATIENT AMBULATED WITH FWW AND SBA. NEEDS ASSISTANCE STANDING DUE TO WEAKNESS. C-COLLAR REMAINS IN PLACE. PATIENT VOIDED AND THEN SAT IN RECLINER. HAIR AND FACE CLEANED WITH SOAPY WASH CLOTH. ATTEMPT MADE TO CLEAN RIGHT EAR; LACERATIONS NOTED AND DRIED BLOOD. PATIENT PROVIDED PRN PAIN MEDS FOR FEET AND RIGHT KNEE PAIN. PATIENT PROVIDED BLANKETS AND CHAIR CUSHIONED FOR PROTECTION. CHAIR ALARM IN PLACE. CALL LIGHT IN LAP.
[2025-02-22 05:38] LABS: BASOPHILS 0.5 % (0.2-1.2); EOSINOPHILS 6.3 % (0.8-7.0); LYMPHOCYTES 16.5 % (21.8-53.1); MCH 25.8 PG (25.7-32.2); MCHC 32.1 g/dL (32.3-36.5); MCV 80.2 fL (79.0-92.2); MONOCYTES 4.4 % (5.3-12.2); NEUTROPHILS 72.0 % (34.0-67.9); RBC 4.15 M/uL (4.63-6.08)
[2025-02-22 05:58] LABS: ALT (SGPT) 20.0 U/L (14-59); AST (SGOT) 20.0 U/L (15-37); GLOMERULAR FILTRATION RATE,EST 97.0 mL/min (>60); PHOSPHORUS, INORGANIC 2.7 mg/dL (2.5-4.9); PROTEIN, TOTAL 6.0 g/dL (6.4-8.2); UREA NITROGEN 29.0 mg/dL (7-18)
--- NOTE | 2025-02-22 06:11 | NUR ---
REPORTED PATIENT'S LAB VALUES TO
--- NOTE | 2025-02-22 07:05 | NUR ---
REPORT RECEIVED FROM PHARMACOVIGILANCE SCIENTIST RN HANDY.
--- NOTE | 2025-02-22 07:34 | NUR ---
PATIENT IS SITTING UPRIGHT IN THE CHAIR WITH EYES CLOSED AND RESPIRATIONS ARE EVEN AND UNLABORED. TV IS ON. CALL LIGHT AND PERSONAL BELONGINGS ARE WITHIN REACH.
--- NOTE | 2025-02-22 08:10 | NUR ---
PATIENT IS SITTING IN THE CHAIR UPRIGHT WITH EYES OPEN AND RESPIRATIONS ARE EVEN AND UNLABORED. TV IS ON. VITAL SIGNS TAKEN AND DOCUMENTED IN THE CHART. 0700 AND 0900 MEDICATIONS ADMINISTERED PER THE EMAR. PATIENT BOOSTED UP IN HIS CHAIR WITH KARISSA MACEDO. BLE ELEVATED. PILLOWS PLACED UNDER THE BILATERAL ARMS. FULL ASSESSMENT COMPLETE AND DOCUMENTED IN THE CHART. PATIENT IS ALERT AND ORIENTED TIMES THREE. PATIENT DOES NOT KNOW WHY HE IS HERE. PATIENT EDUCATED ON WHY HE IS HERE. PATIENT EXPRESSED UNDERSTANDING. PATIENT RATED PAIN 3/10 IN THE RIGHT KNEE AND RIGHT SHOULDER. PATIENT IS NOT REQUESTING ANYTHING FOR PAIN AT THIS TIME. PATIENT LAST BM WAS 02/21/25. IV SITE FLUSHED WITH 10 ML NORMAL SALINE AND IS SALINE LOCKED. IV DRESSING IS CLEAN, DRY, AND INTACT. PATIENT IS ON 60 GRAM CARB DIET WITH A 1,500 ML FLUID RESTRICTION. BOWEL TONES ARE ACTIVE IN ALL FOUR QUADRANTS. DRESSING ON THE BACK IS CLEAN, DRY, AND INTACT. SCAB AND REDNESS TO THE RIGHT HEEL. BRUISE NOTED TO THE RIGHT EYE. PATIENT IS ON ROOM AIR AND LUNG SOUNDS ARE CLEAR THROUGHOUT. CARDIAC WITH NORMAL S1 AND S2 ON AUSCULTATION. RADIAL PULSES ARE STRONG BIALTERALLY. PEDAL PULSES ARE FAINT BILATERALLY. CAPILLARY REFILL IS LESS THAN 3 SECONDS BILATERALLY. NO EDEMA NOTED. SENSATION INTACT WITH NUMBNESS NOTED TO THE BILATERAL TOES AND HEELS. BLE WITH GENERALIZED WEAKNESS NOTED. PATIENT STATED NO FURTHER NEEDS AT THIS TIME. CALL LIGHT AND PERSONAL BELONGINGS ARE WITHIN REACH.
--- NOTE | 2025-02-22 09:02 | NUR ---
PATIENT IS SITTING IN THE CHAIR WITH BIALTERAL LOWER EXTREMITIES ELEVATED. PATIENT IS EATING BREAKFAST. TV IS ON. PATIENT STATED NO FURTHER NEEDS AT THIS TIME. CALL LIGHT AND PERSONAL BELONGINGS ARE WITHIN REACH.
--- NOTE | 2025-02-22 09:19 | NUR ---
SPEECH THERAPY IS IN THE ROOM AT THIS TIME AND WORKING WITH THE PATIENT.
--- NOTE | 2025-02-22 10:26 | NUR ---
PATIENT ASSISTED INTO THE BATHROOM WITH 1PA WITH THE FRONT WHEELED WALKER. BREAKFAST TRAY REMOVED AT THIS TIME. PATIENT WITH A VISITOR SITTING ON THE COUCH. PATIENT EDUCATTED TO PULL THE CALL LIGHT WHEN COMPLETE. PATIENT EXPRESSED UNDERSTANDING.
--- NOTE | 2025-02-22 10:42 | NUR ---
PATIENT ASSISTED BACK TO THE CHAIR AFTER USING THE BATHROOM. PATIENT VOID 200 ML OF CONCENTRATED URINE AND HAD ONE SMALL BM THAT WAS DARK BROWN. PATIENT TOLERATED WELL. WAFFLE PAD PLACED ON THE PATIENT CHAIR FOR COMFORT. NEW ALEVYN PLACED ON THE LEFT SIDE OF BACK JUST ABOVE THE BUTTOCK DUE TO REDNESS AND A SCAB. PATIENT ARMS PROPPED UP WITH PILLOWS AND BILATERAL LOWER EXTREMITIES ELEVATED. WARM BLANKET PROVIDED. PATIENT STATED NO FURTHER NEEDS AT THIS TIME. CALL LIGHT AND PERSONAL BELONGINGS ARE WITHIN REACH. PATIENT REMAINS ON THE MONITOR. PATIENT WITH A FAMILY MEMBER SITTING ON THE COUCH.
--- NOTE | 2025-02-22 10:50 | NUR ---
Spoke with pt and his sister. Pt is pleasant and does not seem to realize his deficits. Pt stating he no longer wants to go to a SNF, and plans on dc to home. Sister is in the room and does not feel pt cannot care for himself. Pt has had multiple falls and was found down. Sister very concerned as she lives [place] of [place]. She has had a stroke. Pt stating he will not go. We discussed caregivers in the home and the process to go through [facility]. I gave them the phone number to call for an eval an let them know it take 45 days to get cg in place. Pt is not sure if he will agree to this.
--- NOTE | 2025-02-22 11:05 | NUR ---
PHYSICAL THERAPY AND OCCUPATIONAL THERAPY ARE IN THE ROOM AT THIS TIME AND WORKING WITH THE PATIENT.
[2025-02-22 11:08] LABS: TRIIODOTHYRONINE,FREE FREE T3 1.9 pg/mL (2.5-4.3)
--- NOTE | 2025-02-22 11:50 | NUR ---
VISITED DURING SPIRITUAL CARE ROUNDS. PT SUPPORTED BY FAMILY IN ROOM. FAMILY IN MIDST OF EMOTIONAL CONVERSATION REGARDING PLACEMENT WHICH PT IS RESISTING. BUSINESS SERVICES VICE PRESIDENT PROVIDED MODERATING PRESENCE, NORMALIZED EXPERIENCE, REFRAMED SITUATION, PROVIDED PRAYER, HOSPITALITY, FACILITATED INTERACTION WITH THERAPY ANIMAL. PT REMAINED RESISTANT, FAMILY EXPRESSED HOPE, CONCERN.
--- NOTE | 2025-02-22 12:05 | NUR ---
VITAL SIGNS TAKEN AND DOCUMENTED IN THE CHART. PATIENT IS SITTING IN THE CHAIR WITH BILATERAL LOWER EXTREMITIES ELEVATED. PATIENT BOOSTED UP IN BED WITH REMINGTON MACK RN. PATIENT PROVIDED LUNCH TRAY AT THIS TIME. PATIENT WITH TWO VISITORS IN THE ROOM AT THIS TIME. FULL ASSESSMENT COMPLETE AND DOCUMENTED IN THE CHART. PATIENT IS ALERT AND ORIENTED TIMES FOUR. PATIENT RATED PAIN 3/10 IN THE RIGHT KNEE AND RIGHT SHOULDER. PATIENT IS NOT REQUESTING ANYTHING FOR PAIN. IV SITE REMAINS SALINE LOCKED. IV DRESSING IS CLEAN, DRY, AND INTACT. PATIENT IS ON A 60 GRAM CARB DIET WITH A 2,000 ML FLUID RESTRICTION. BOWEL TONES ARE ACTIVE IN ALL FOUR QUADRANTS. DRESSING PLACED ON THE PATIENT RIGHT HEEL FOR REDNESS AND SCAB. NO DRAINAGE NOTED. PATIENT WITH A BRUISE ON THE RIGHT EYE. PATIENT IS ALERT AND ORIENTED TIMES FOUR. PATIENT IS ON ROOM AIR AND LUNG SOUNDS ARE CLEAR THROUGHOUT. CARDIAC WITH NORMAL S1 AND S2 ON AUSCULTATION. PATIENT IS ON THE HEART MONITOR AND IN SINUS RHYTHM. RADIAL AND PEDAL PULSES ARE STRONG BILATERALLY. CAPILARY REFILL IN THE UPPER AND LOWER EXTREMITIES IS LESS THAN 3 SECONDS. NO EDEMA NOTED. BILATERAL TOE NUMBNESS REPORTED PER PATIENT. BLE WITH WEAKNESS NOTED. PATIENT STATED NO FURTHER NEEDS AT THIS TIME. CALL LIGHT AND PERSONAL BELONGINGS ARE WITHIN REACH. TV IS ON.
--- NOTE | 2025-02-22 13:39 | NUR ---
PATIENT AMBULATED TO THE BATHROOM WITH FWW AND SBA. PATIENT TOLERATED WELL. LINENS CHANGED ON THE BED AND THE CHAIR AT THIS TIME. PATIENT VOID 200 ML CONCENTRATED URINE. PATIENT IS NOW BACK IN BED WITH EYES CLOSED AND RESPIRATIONS ARE EVEN AND UNLABORED. TV IS ON. LUNCH TRAY REMOVED. PATIENT STATED NO FURTHER NEEDS AT THIS TIME. CALL LIGHT AND PERSONAL BELONGINGS ARE WITHIN REACH.
--- NOTE | 2025-02-22 14:15 | NUR ---
PATIENT IS LYING IN BED WITH HOB ELEVATED. PATIENT WITH EYES CLOSED AND RESPIRATIONS ARE EVEN AND UNLABORED. C COLLAR IN PLACE. TV ON. CALL LIGHT AND PERSONAL BELONGINGS ARE WITHIN REACH.
[2025-02-22 14:25] LABS: GLOMERULAR FILTRATION RATE,EST 99.0 mL/min (>60); UREA NITROGEN 27.0 mg/dL (7-18)
--- NOTE | 2025-02-22 14:30 | NUR ---
NOTIFIED OF PATIENT SODIUM OF 141 FROM THE MOST RECENT LAB VALUES. STATED TO DISCONTINUE THE FLUID RESTRICTION. ORDER PUT IN BY THIS RN. WITH NO FURTHER ORDERS AT THIS TIME. CALL ENDED.
--- NOTE | 2025-02-22 15:02 | NUR ---
PATIENT IS LYING IN BED WITH EYES CLOSED AND RESPIRATIONS ARE EVEN AND UNLABORED. C COLLAR IN PLACE. TV ON. PATIENT WITH A VISITOR SITTING ON THE COUCH. CALL LIGHT AND PERSONAL BELONGINGS ARE WITHIN REACH.
--- NOTE | 2025-02-22 16:04 | NUR ---
PATIENT ASSISTED TO THE BATHROOM AT THIS TIME. PATIENT IS A SBA WITH THE FFW. PATIENT TOLERATED WELL. PATIENT IS NOW ON THE TOILET. PATIENT EDUCATED TO PULL THE CALL LIGHT WHEN READY. PATIENT EXPRESSED UNDERSTANDING. VITAL SIGNS TAKEN AND DOCUMENTED IN THE CHART. CALL LIGHT WITHIN REACH. PATIENT WITH A VISITOR SITTING ON THE COUCH IN THE ROOM.
--- NOTE | 2025-02-22 16:30 | NUR ---
PATIENT RETURNED TO BED WITH SBA AND FWW. KARISSA MACEDO ASSISTED THIS RN WITH REPOSITIONING AND BOOSTING THE PATIENT UP IN BED. PATIENT HOB ELEVATED AND SCD'S IN PLACE. PATIENT IS ALERT AND ORIENTED TIMES THREE. PATIENT REPORTS BEING IN THE HOSPITAL DUE TO PAIN RATHER THAN FOR A FALL AT HOME. PATIENT IV SITE REMAINS SALINE LOCKED AND THE IV DRESSING IS CLEAN, DRY, AND INTACT. PATIENT RATED PAIN 7/10 IN THE RIGHT KNEE AND RIGHT SHOULDER. PATIENT IS REQUESTING SOMETHING FOR PAIN. PRN OXYCODONE ADMINISTERED PER THE EMAR. PATIENT WITH HIS VISITOR STILL ON THE COUCH AT THIS TIME. 225 ML OF URINE IN THE HAT AND IS CONCENTRATED. PATIENT EDUCATED ON INCREASING FLUID INTAKE AT THIS TIME DUE TO FLUID RESTRICTION BEING REMOVED. PATIENT EXPRESSED UNDERSTANDING. TV IS ON. PATIENT STATED NO FURTHER NEEDS AT THIS TIME. CALL LIGHT AND PERSONAL BELONGINGS ARE WITHIN REACH.
[2025-02-22] MEDS ORDERED: METOPROLOL TART25 MG PO (16:58)
--- NOTE | 2025-02-22 17:17 | NUR ---
PATIENT IS LYING IN BED WITH HOB ELEVATED. PATIENT WITH EYES OPEN AND RESPIRATIONS ARE EVEN AND UNLABORED. C COLLAR IN PLACE. PATIENT IS EATING DINNER. PATIENT WITH A VISITOR SITTING ON THE COUCH. TV IS ON. CALL LIGHT AND PERSONAL BELONGINGS ARE WITHIN REACH.
--- NOTE | 2025-02-22 18:11 | NUR ---
PATIENT IS LYING IN BED WITH HOB ELEVATED AND THE C COLLAR ON. PATIENT REPORTS NEEDING MORE TIME TO EAT DINNER. DINNER TRAY REMAINS SET UP IN FRONT OF THE PATIENT. TV IS ON. VISITOR IS STANDING AT THE BEDSIDE. CALL LIGHT AND PERSONAL BELONGINGS ARE WITHIN REACH.
--- NOTE | 2025-02-22 18:53 | NUR ---
NOTIFIED OF PATIENT REPORTING THIS RN HAND WAS A CAT WHILE WIPING DOWN THE BEDSIDE TABLE. MD WITH NO FURTHER ORDERS. INTAKE AND OUTPUT VALUES TAKEN AND DOCUMENTED IN THE CHART. PATIENT WITH A VISITOR AT THE BEDSIDE. CALL LIGHT AND PERSONAL BELONGINGS ARE WITHIN REACH.
--- NOTE | 2025-02-22 19:15 | NUR ---
SHIFT REPORT RECEIVED. PATIENT RESTING IN BED. FAMILY IN ROOM. CALL LIGHT IN REACH.
--- NOTE | 2025-02-22 20:02 | NUR ---
PATIENT CALLED FOR ASSIST UP TO THE BATHROOM. PATIENT REQUIRES ASSISTANCE GETTING SAT UP IN BED BUT AMBULATES WITH SBA ONLY AND USES FWW APPROPRIATELY. PATIENT VOIDED AND HAD MEDIUM FORMED BM. PATIENT RETURNED TO BED. ASSISTED TO POSITION FOR COMFORT. WARM BLANKET PROVIDED. CALL LIGHT IN REACH.
--- NOTE | 2025-02-22 22:00 | NUR ---
PATIENT UP TO THE BATHROOM. SMALL BM AND VOID. PATIENT AMBULATES WITH SBA AND FWW. C-COLLAR REMAINS IN PLACE. PATIENT RETURNED TO BED. WARM BLANKETS PROVIDED. PATIENT DENIED OTHER NEEDS. CALL LIGHT IN REACH.
[2025-02-23] VITALS (10 sets, daily range): BP systolic 107–135; BP diastolic 38–56
--- NOTE | 2025-02-23 00:29 | NUR ---
PATIENT APPEARS COMOFRTABLE IN BED. EYES CLOSED. VS STABLE. TOLERATING ROOM AIR. CALL LIGHT IN REACH.
--- NOTE | 2025-02-23 01:50 | NUR ---
PATIENT UP TO THE BATHROOM TO VOID. TOLERATES ACTIVITY WELL. SBA WITH FWW. RETURNED TO BED. C-COLLAR IN PLACE. HOB ELEVATED. SCDs IN PLACE. CALL LIGHT IN REACH. PATIENT DENIED OTHER NEED.
--- NOTE | 2025-02-23 04:47 | NUR ---
PATIENT UP TO THE BATHROOM TO VOID. NEW ATTENDS PROVIDED. PATIENT HAD SOME GAS BUT NO BM. RETURNED TO BED. ASSISTED TO POSITION FOR COMFORT. DENIED ANY NEEDS AT THIS TIME. CALL LIGHT IN REACH.
[2025-02-23 05:17] LABS: BASOPHILS 0.4 % (0.2-1.2); EOSINOPHILS 7.2 % (0.8-7.0); LYMPHOCYTES 17.2 % (21.8-53.1); MCH 25.5 PG (25.7-32.2); MCHC 31.4 g/dL (32.3-36.5); MCV 81.0 fL (79.0-92.2); MONOCYTES 5.9 % (5.3-12.2); NEUTROPHILS 68.9 % (34.0-67.9); RBC 3.85 M/uL (4.63-6.08)
[2025-02-23 05:33] LABS: ALT (SGPT) 20.0 U/L (14-59); AST (SGOT) 17.0 U/L (15-37); GLOMERULAR FILTRATION RATE,EST 95.0 mL/min (>60); PHOSPHORUS, INORGANIC 3.2 mg/dL (2.5-4.9); PROTEIN, TOTAL 5.7 g/dL (6.4-8.2); UREA NITROGEN 17.0 mg/dL (7-18)
--- NOTE | 2025-02-23 06:56 | NUR ---
PATIENT UP TO THE BATHROOM. TOLERATES WELL. DECLINED OFFER TO SIT IN RECLINER. PATIENT BACK TO BED. HOB ELEVATED. CALL LIGHT IN REACH.
[2025-02-23] MEDS ORDERED: MAGNESIUM SULFATE 2 GM/50 ML BAG IV SCH (07:30)
--- NOTE | 2025-02-23 07:47 | NUR ---
RECIEVED SHIFT REPORT. PT IS RESTING IN BED, SLEEPING. BREATHING EVEN AND UNLABORED. CALL LIGHT IN REACH.
--- NOTE | 2025-02-23 08:15 | NUR ---
RN IN ROOM TO AWAKE PT FOR BREAKFAST AND MORNING MEDS. PT AROUSABLE, PLEASANT. PT WALKED TO RECLINERPRINCESS FWW. BREAKFAST SET UP ON TRAY. PT DISCUSSED PAIN 5/10, PRN PAIN MEDICATION ADMINSTERED (PER EMAR). CALL LIGHT IN REACH. PT DENIES NEEDS AT THIS TIME.
--- NOTE | 2025-02-23 09:34 | NUR ---
PT FINISHED WITH BREAKFAST. COFFEE AND COLD WATER PROVIDED. PT REMINS IN RECLINER, WATCHING TV. CALL LIGHT IN REACH.
--- NOTE | 2025-02-23 10:32 | NUR ---
PT AWAKE IN RECLINER, DENIES NEEDS. CALL LIGHT IN REACH
--- NOTE | 2025-02-23 12:15 | NUR ---
PT WALKED TO BATHROOM, IN BED. FRESH WATER PROVIDED. CALL LIGHT IN REACH.
--- NOTE | 2025-02-23 12:52 | NUR ---
Patient to the medical floor from CCU dept. Patient arrived to unit alert to self and place, pleasant mood, pt converses with staff appropriately. Patient has a c-collar in place, head of bed elevated, respirations non labored. Patient oriented to room and call light. Bed alarm intact. Vital signs are stable.
--- NOTE | 2025-02-23 14:07 | NUR ---
RESPONDED TO PT CALL. PT REQUESTING TO GO TO THE BATHROOM. SBA WHILE PT AMBULATED WITH WALKER WITHOUT COMPLICATION. PT REPORTS HE THOUGHT HE NEEDED TO PASS A BM BUT ONLY HAD GAS. PT SETTLED INTO CHAIR WHILE HE VISITS WITH HIS SISTER. PT DENIES ANY NEEDS AT THIS TIME. CALL LIGHT WITHIN REACH. REINFORCED CALL LIGHT USE FOR AMBULATION.
--- NOTE | 2025-02-23 14:53 | NUR ---
[facility] records from recent admit
--- NOTE | 2025-02-23 15:56 | NUR ---
Patient sitting up in chair visiting with family member. Patient has no distress noted. Personal supplies and call light within reach.
--- NOTE | 2025-02-23 19:10 | NUR ---
REPORT RECEIVED FROM KARISSA GUZMAN. PATIENT RESTING IN BED, WATCHING TV. C-COLLAR IN PLACE. RESPIRATIONS EVEN AND UNLABORED. HE DENIES ANY NEEDS, CALL LIGHT IN REACH.
--- NOTE | 2025-02-23 20:12 | NUR ---
CALL LIGHT ANSWERED. PT STATES NEED TO USE BATHROOM. BINDERY WORKER 1PA WITH FWW TO BATHROOM PT INSTRUCTED TO USE BATHROOM CALL LIGHT WHEN READY. BATHROOM CALL LIGHT ANSWERED. PT ASSISTED BACK TO BED. VITALS AND I&O OBTAINED. PT STATES NO FURTHER NEEDS AT THIS TIME. CALL LIGHT WITHIN REACH AND BED ALARM ON.
--- NOTE | 2025-02-23 21:02 | NUR ---
ASSESSMENT COMPLETED, PATIENT UP TO RESTROOM PER REQUEST, VOIDED. BACK TO BED USING FWW AND MINIMAL SBA. SCHEDULED MEDICATION GIVEN PER ORDER. PATIENT HAS C-COLLAR IN PLACE AND IT REMAINED IN PLACE DURING ASSESSMENT. SCD IN PLACE. PATIENT DENIES ANY NEEDS, BED ALARM ON. CALL LIGHT IN REACH.
--- NOTE | 2025-02-23 23:00 | NUR ---
CALL LIGHT ANSWERED, PATIENT UP TO RESTROOM. PATIENT REPORTS HE FELT THAT HE WAS HOT, PATIENT GOWN SOILED WITH SWEAT. NEW GOWN PROVIDED, ALLYVEN CHANGED ON PATIENT UPPER BACK. ANODE ADJUSTER IN ROOM WITH PATIENT.
--- NOTE | 2025-02-23 23:03 | NUR ---
COMPOSITION WEATHERBOARD INSTALLER ASSISTED PT BACK FROM BATHROOM. PT GOWN CHNAGED AND NO FURTHER NEEDS STATED AT THIS TIME. CALL LIGHT WITHIN REACH AND BED ALARM ON.
[2025-02-24] VITALS (8 sets, daily range): BP systolic 118–131; BP diastolic 42–88
--- NOTE | 2025-02-24 00:25 | NUR ---
ROUNDED ON PATIENT. PATIENT RESTING WITH EYES CLOSED, RESPIRATIONS EVEN AND UNLABORED. NO NEEDS IDENTIFIED, CALL LIGHT IN REACH
--- NOTE | 2025-02-24 00:56 | NUR ---
CALL LIGHT ANSWERED. PT NEEDED TO USE BATHROOM. FOOD TECHNOLOGIST 1PA WITH FWW TO BATHROOM. PT VOIDED AND ASSISTED BACK TO BED. PT STATES NO FURTHER NEEDS AT THIS TIME. CALL LIGHT WITHIN REACH AND BED ALARM ON.
--- NOTE | 2025-02-24 02:08 | NUR ---
ROUNDED ON PATIENT, SLEEPING WITH EYES CLOSED, RESPIRATIONS ARE EVEN AND UNLABORED. C-COLLAR REMAINS IN PLACE. NO NEEDS IDENTIFIED, CALL LIGHT IN REACH
--- NOTE | 2025-02-24 02:40 | NUR ---
IN ROOM IN RESPONSE TO BED ALARM, PATIENT STATES THAT HE ATTEMPTED TO USE THE CALL LIGHT BUT COULDNT FIND THE RIGHT BUTTON. UP TO RESTROOM TO VOID USING SBA AND FWW. BACK TO BED WITHOUT DIFFICULTY. WARM BLANKET PROVIDED PER REQUEST. BED ALARM ON, DENIES FURTHER NEEDS, CALL LIGHT IN REACH
--- NOTE | 2025-02-24 04:07 | NUR ---
BED ALARM ANSWERED. PT STATED NEED TO USE BATHROOM. RETAIL COORDINATOR 1PA WITH FWW TO BATHROOM. PT INSTRUCTED TO USE BATHROOM. CALL LIGHT WHEN READY. BATHROOM LIGHT ANSWERED. PT ASSISTED BACK TO BED. PT STATES NO FURTHER NEEDS AT THIS TIME. CALL LIGHT WITHIN REACH AND BED ALARM ON.
--- NOTE | 2025-02-24 05:22 | NUR ---
ASSISTED PATIENT BACK FROM RESTROOM, X1 ASSIST AND USE OF FWW. VS OBTAINED AND RECORDED, INTAKE AND OUTPUT DOCUMENTED BY TRACK CAR OPERATOR. PATIENT ALERT, ORIENTED AND APPROPRIATE. FORGETFUL WITH DATE AND USE OF CALL LIGHT OCCASIONALLY THROUGHOUT THE NIGHT. HE DENIES ANY NEEDS, FRESH WATER GIVEN. CALL LIGHT IN REACH.
[2025-02-24 05:29] LABS: BASOPHILS 0.5 % (0.2-1.2); EOSINOPHILS 6.5 % (0.8-7.0); LYMPHOCYTES 16.1 % (21.8-53.1); MCH 25.5 PG (25.7-32.2); MCHC 32.1 g/dL (32.3-36.5); MCV 79.4 fL (79.0-92.2); MONOCYTES 5.9 % (5.3-12.2); NEUTROPHILS 70.6 % (34.0-67.9); RBC 4.08 M/uL (4.63-6.08)
[2025-02-24 05:44] LABS: ALT (SGPT) 21.0 U/L (14-59); AST (SGOT) 15.0 U/L (15-37); GLOMERULAR FILTRATION RATE,EST 97.0 mL/min (>60); PHOSPHORUS, INORGANIC 3.3 mg/dL (2.5-4.9); PROTEIN, TOTAL 6.2 g/dL (6.4-8.2); UREA NITROGEN 12.0 mg/dL (7-18)
--- NOTE | 2025-02-24 06:36 | NUR ---
CALL LIGHT ANSWERED. PT NEEDED TO USE BATHROOM. COMMUNICATIONS LEAD 1PA WITH FWW TO BATHROOM. PT INSTUCTED TO CALL WHEN READY. BATHROOM LIGHT ANSWERED. PT ASSISTED BACK TO BED. PT STATES NO FURTHER NEEDS AT THIS TIME. CALL LIGHT WITHIN REACH AND BED ALARM ON.
--- NOTE | 2025-02-24 06:39 | NUR ---
SCHEDULED MED GIVEN TO PATIENT, FRESH WATER PROVIDED PER REQUEST. HE DENIES OTHER NEEDS, CALL LIGHT IN REACH
--- NOTE | 2025-02-24 07:08 | NUR ---
CALL LIGHT ANSWERED. PT NEEDED TO USE BATHROOM. ACCREDITATION MANAGER 1PA WITH FWW TO BATHROOM. PT VOIDED AND ASSISTED BACK TO BED. PT STATES NO FURTHER NEEDS AT THIS TIME. CALL LIGHT WITHIN REACH AND BED ALARM ON.
--- NOTE | 2025-02-24 07:15 | NUR ---
VERBAL REPORT RECEIVED FROM KARISSA HORN. PT RESTS IN BED AWAKE AND ALERT, WATCHES TV, REQUESTS COFFEE, COFFEE PROVIDED. CALL LIGHT IN REACH, NO FURTHER REQUESTS AT THIS TIME.
--- NOTE | 2025-02-24 08:39 | NUR ---
PATIENT WAS IN THE RESTROOM AT THIS TIME, CABRERA BLOOM ASSISTED PATIENT BACK TO HIS CHAIR FOR BREAKFAST AND TO ENJOY THE BEAUTIFUL MORNING. CABRERA GOT PATIENT FRESH WATER, A WARM BLANKET, CHANGED HIS BEDDING, AND TIDYED HIS ROOM UP. HELPED SET UP HIS BREAKFAST FOR HIM. CALL LIGHT WITH IN REACH AND NOTHING ELSE NEEDED AT THIS TIME.
--- NOTE | 2025-02-24 13:03 | NUR ---
REPORT RECIEVED FROM KARISSA MACEDO. PATIENT SITTING UP IN CHAIR VISITING WITH FAMILY. PATIENT WITHOUT ANY NEEDS AT THIS TIME. CALL LIGHT AND PERSONAL BELONGINGS ARE WITHIN REACH.
--- NOTE | 2025-02-24 13:17 | NUR ---
PATIENT IS IN HIS CHAIR AT THIS TIME, SITTING AND TALKING WITH FAMILY. FENCE RIDER CHARTED VITALS AND I&O'S, GOT A SHOWER CAP AND BATH WIPES FOR PATIENT. FRESH WATER, CHANGED BEDDING AND GOWN. CALL LIGHT WITH IN REACH AND NOTHING ELSE NEEDED AT THIS TIME.
--- NOTE | 2025-02-24 14:44 | NUR ---
PATIENT UP TO BATHROOM VIA 1 PERSON ASSIST. ALLEVYN NOTED TO BE COMING OFF, NEW ALLEVYN APPLIED. NO DRAINAGE NOTED. PATIENT SITTING UP IN CHAIR. FRESH COFFEE PROVIDED. PATIENT AND FAMILY WITHOUT ANY NEEDS AT THIS TIME. CALL LIGHT AND PERSONAL BELONGINGS ARE WITHIN REACH.
--- NOTE | 2025-02-24 16:23 | NUR ---
THIS RN ASSISTED PATIENT UP FROM BED INTO THE BATHROOM. C-COLLAR IN PLACE, PATIENT USES FWW AND IS STEADY WITH THAT. URINATING CLEAR YELLOW URINE. ASSISTED BACK TO CHAIR, SITTING UP IN CHAIR WITH ALL PERSONAL BELONGINGS ON TABLE. CALL LIGHT WITHIN REACH, DENIES ANY OTHER NEEDS. FAMILY PRESENT AT CHAIRSIDE VISITING AT THIS TIME
--- NOTE | 2025-02-24 16:53 | NUR ---
PATIENT SITTING UP EATING DINNER IN HIS CHAIR. FAMILY AT BEDSIDE. PATIENT WITHOUT ANY NEEDS AT THIS TIME. CALL LIGHT AND PERSONAL BELONGINGS ARE WITHIN REACH.
--- NOTE | 2025-02-24 18:33 | NUR ---
PATIENT SITTING UP IN HIS CHAIR VISTING WITH FAMILY. PATIENT WITHOUT ANY NEEDS AT THIS TIME. CALL LIGHT AND PERSONAL BELONGINGS ARE WITHIN REACH.
--- NOTE | 2025-02-24 18:48 | NUR ---
PATIENT TRANSFERED TO BED VIA [address] [place] [address] ASSIST. WARM BLANKET PROVIDED. PATIENT WITHOUT ANY NEEDS AT THIS TIME. CALL LIGHT AND PERSONAL BELONGINGS ARE WITHIN REACH.
--- NOTE | 2025-02-24 19:23 | NUR ---
REPORT RECEIVED FROM DAYSHIFT RN. PATIENT RESTING WITH EYES CLOSED, RESPIRATIONS ARE EVEN AND UNLABORED. C-COLLAR IN PLACE. FAMILY MEMBER IN ROOM. NO NEEDS IDENTIFIED, CALL LIGHT IN REACH
--- NOTE | 2025-02-24 19:25 | NUR ---
PATIENT WAS PROVIDED WITH A WARM WASH CLOTH, A WARM BLANKET AND THE WHITE BOARD WAS UPDATED. PATIENT WAS ASSISTED TO THE BATHROOM SBA WITH FWW. PATIENT IS LAYING IN BED. CALL LIGHT IN REACH AND NO FURTHER NEEDS AT THIS TIME.
--- NOTE | 2025-02-24 20:10 | NUR ---
PATIENT RESTING IN BED, WATCHING TV. RESPIRATIONS EVEN AND UNLABORED. C-COLLAR IN PLACE. ASSESSMENT COMPLETE. VS OBTAINED AND RECORDED. INTAKE AND OUTPUT DOCUMENTED. PATIENT DENIES FURTHER NEEDS, CALL LIGHT IN REACH.
--- NOTE | 2025-02-24 20:30 | NUR ---
SCHEDULED MED GIVEN PER ORDER. PATIENT DENIES ANY NEEDS, CALL LIGHT IN REACH
--- NOTE | 2025-02-24 21:03 | NUR ---
PATIENT LAYING IN BED. PATIENTS DENTURES WERE TAKEN OUT AND CLEANED. PATIENT WAS SET UP FOR ORAL CARE. PATIENTS CALL LIGHT IS WITHIN REACH AND NO FURTHER NEEDS AT THIS TIME.
--- NOTE | 2025-02-24 22:00 | NUR ---
RN IN ROOM TO ASSIST CONCRETE LAYER WITH PATIENT BACK TO BED, BED ALARM ON. RESPIRATIONS EVEN AND UNLABORED. C-COLLAR IN PLACE. NO NEEDS, CALL LIGHT IN REACH
--- NOTE | 2025-02-24 22:55 | NUR ---
PATIENT WAS ASSISTED SBA WITH FWW TO THE BATHOOM. WATER WAS REFILLED. PATIENT IS LAYING IN BED WITH CALL LIGHT IN REACH AND NO FURTHER NEEDS AT THIS TIME.
[2025-02-25] VITALS (9 sets, daily range): BP systolic 120–141; BP diastolic 46–48
--- NOTE | 2025-02-25 00:55 | NUR ---
ROUNDED ON PATIENT, HE IS RESTING IN BED, RESPIRATIONS ARE EVEN AND UNLABORED. C-COLLAR IN PLACE. NO NEEDS IDENTIFIED, CALL LIGHT IN REACH.
--- NOTE | 2025-02-25 02:34 | NUR ---
ROUNDED ON PATIENT. PATIENT SITTING ON SIDE OF BED, READING ON PHONE. PATIENT REPORTS HE DOES NOT WANT TO GET UP, AND RN SUGGESTED HE GET BACK IN BED. PATIENT ANSWERED ALL ORIENTATION QUESTIONS APPROPRIATELY. ASSISTED BACK TO BED, BED ALARM ON. C-COLLAR IN PLACE. PATIENT DENIES OTHER NEEDS, CALL LIGHT IN REACH.
--- NOTE | 2025-02-25 03:12 | NUR ---
PATIENT WAS ASSISTED TO THE BATHROOM SBA FWW. PATIENT IS LAYING DOWN. CALL LIGHT IN REACH AND NO FURTHER NEEDS AT THIS TIME.
--- NOTE | 2025-02-25 04:57 | NUR ---
PATIENT WAS ASSISTED SBA WITH FWW TO BATHROOM. BRIEF WAS CHANGED. PATIENT WAS PROVIDED WITH COFFEE AND WATER. PATIENTS CALL LIGHT IS WITHIN REACH, BED ALARM IS ON AND PATIENT HAS NO FURTHER NEEDS AT THIS TIME.
--- NOTE | 2025-02-25 05:54 | NUR ---
PATIENT RESTING WITH EYES CLOSED WHEN RN ENTERED THE ROOM. PATIENT WOKE AND MEDICATION ADMINSISTERED PER ORDER. DENTURES GIVEN TO PATIENT PER REQUEST. HE DENIES FURTHER NEEDS, CALL LIGHT IN REACH
--- NOTE | 2025-02-25 07:07 | NUR ---
VERBAL REPORT RECEIVED FROM KARISSA HORN. PT RESTS IN BED WITH EYES CLOSED, RESP EVEN AND UNLABORED.
--- NOTE | 2025-02-25 10:16 | NUR ---
PATIENT SITTING UP IN CHAIR AT THIS TIME. I&O'S DONE AND CHARTED. WARM WASH CLOTH GIVEN. AM CARE DONE. CALL LIGHT IN REACH. NO FURTHER NEEDS AT THIS TIME.
--- NOTE | 2025-02-25 11:14 | NUR ---
PT NOW RESTING IN RECLINER AFTER WORKING WITH PHYSCIAL THERAPY. CALL LIGHT IN REACH, WATCHES TV.
--- NOTE | 2025-02-25 14:19 | NUR ---
PATIENT SITTING UP IN CHAIR AT THIS TIME. VITALS AND I&O'S DONE AND CHARTED. FRESH COFFEE GIVEN. CALL LIGHT IN REACH. NO FURTHER NEEDS AT THIS TIME.
--- NOTE | 2025-02-25 15:46 | NUR ---
PT SITTING UP IN CHAIR, WATCHING TV. PT REPORTED 5/10 PAIN IN LOWER BACK AND R KNEE, REPORTS CHRONIC. PRN PAIN MEDICATION GIVEN PER REQUEST. WATER REFILLED, UPDATED ON PLAN OF CARE. DENIES NEEDS, CALL LIGHT IN REACH
--- NOTE | 2025-02-25 18:23 | NUR ---
PATIENT SITTING UP IN CHAIR AT THIS TIME, VISITOR IN ROOM. VITALS AND I&O'S DONE AND CHARTED. FRESH WATER GIVEN. CALL LIGHT IN REACH. NO FURTHER NEEDS AT THIS TIME.
--- NOTE | 2025-02-25 19:20 | NUR ---
REPORT RECEIVED FROM DAYSHIFT RN. PATIENT IS RESTING IN BED WITH EYES CLOSED, C-COLLAR IN PLACE. RESPIRATIONS ARE EVEN AND UNLABORED. NO NEEDS IDENTIFIED AT THIS TIME, CALL LIGHT IN REACH.
--- NOTE | 2025-02-25 21:50 | NUR ---
ROUNDED ON PATIENT, PATIENT RESTING IN BED, WATCHING TV. ASSESSMENT COMPLETE. PATIENT DENIES ANY PAIN, C-COLLAR IN PLACE. ALLYVEN ON RIGHT HEEL NOTED TO NOT BE FULLY FLESH WITH THE SKIN, ALLYVEN REPLACED. SMALL ALLYVEN PLACED ON LEFT HEEL WELL. SKIN ASSESSMENT COMPLETED WITH KORY Vega RN. PATIENT DECLINES ANY NEEDS, HE IS ALERT AND ORIENTED X4. CALL LIGHT IN REACH.
--- NOTE | 2025-02-25 23:52 | NUR ---
ROUNDED ON PATIENT, PATIENT RESTING WITH EYES CLOSED, RESPIRATIONS EVEN AND UNLABORED. C-COLLAR IN PLACE. NO NEEDS IDENTIFIED, CALL LIGHT IN REACH.
[2025-02-26] VITALS (8 sets, daily range): BP systolic 100–135; BP diastolic 41–72
--- NOTE | 2025-02-26 01:15 | NUR ---
PATIENT RESTING WITH EYES CLOSED, RESPIRATIONS EVEN AND UNLABORED. C-COLLAR IN PLACE. CALL LIGHT IN REACH
--- NOTE | 2025-02-26 03:21 | NUR ---
ROUNDED ON PATIENT, PATIENT IS RESTING WITH EYES CLOSED, RESPIRATIONS EVEN AND UNLABORED. C-COLLAR IN PLACE. NO NEEDS IDENTIFIED, CALL LIGHT IN REACH
--- NOTE | 2025-02-26 04:43 | NUR ---
ROUNDED ON PATIENT, PATIENT IS RESTING WITH EYES CLOSED, RESPIRATIONS EVEN AND UNLABORED. C-COLLAR IN PLACE. CALL LIGHT IN REACH
--- NOTE | 2025-02-26 06:51 | NUR ---
ROUNDED ON PATIENT, NEURO CHECK COMPLETE. PATIENT ALERT AND ORIENTED X4, HE IS RESTING, RESPIRATIONS EVEN AND UNLABORED. NO NEEDS, CALL LIGHT IN REACH. C-COLLAR IN PLACE.
--- NOTE | 2025-02-26 07:22 | NUR ---
VERBAL REPORT RECEIVED FROM KARISSA HORN. PT RESTS IN BED WITH EYES CLOSED, RESP EVEN AND UNLABORED.
--- NOTE | 2025-02-26 07:31 | NUR ---
Clinical notes fron 02/23-02/25 sent to Prema at [facility] requesting placement, today if possible.
--- NOTE | 2025-02-26 08:03 | NUR ---
HOURLY ROUNDING.PATIENT WAS EATING BREAKFEAST IN BED, NURSE IS AT BEDSIDE WITH PATIENT. UPDATED THE BOARD AND SAID HELLO TO THE PATIENT. NO REQUESTT AT THIS TIME FROM PATIENT. CALL LIGHT HAS BEEN PLACED WITHIN REACH.
--- NOTE | 2025-02-26 09:15 | NUR ---
HOURLY ROUNDING. PATIENT IS LAYING IN BED NO REQUEST FROM PATIENT AT THIS TIME CALL LIGHT HAS BEENPLACED WITHIN REACH WATER CUP HAS BEEN FILLED.
--- NOTE | 2025-02-26 10:00 | NUR ---
INTO SEE PATIENT. FAMILY AT BEDSIDE. PATIENT WAS DECLINED AT [facility] DUE TO THEM NOT HAVING A MALE BED AVAIABLE AT THIS TIME. PATIENT AND FAMILY AGREEABLE TO THE CHART BEING SENT TO AN[facility] PATIENT CHART WAS SENT TO HUY GANT AT THE [place] [facility]. AWAITING TO HEAR ABOUT ACCEPTANCE.
--- NOTE | 2025-02-26 11:38 | NUR ---
HOURLY ROUNDING. PATIENT TOOK A SHOWER WITH ASSISTANCE, SHAMPOO CAP WAS PLACED. PATIENT WILL BE EATING IN HIS RECLINER CHAIR FOR LUNCH. LINENS HAS BEEN CHANGED ON PATIENT BED, WATER CUP HAS BEEN FILLED. PATIENT IS NOW READY FOR LUNCH NO FURTHER REQUEST FROM PATIENT AT THIS TIME
--- NOTE | 2025-02-26 12:09 | NUR ---
PATIENT DECLINED AT [facility] DUE TO AMA IN PAST FROM SNF AND UNSURE D/C PLAN AND POTENTIAL NEED FOR INCOMING INSPECTOR CARE.
--- NOTE | 2025-02-26 12:11 | NUR ---
PT SITS UP IN RECLINER, FEEDS SELF LUNCH, CALL LIGHT IN REACH, NO REQUESTS AT THIS TIME.
--- NOTE | 2025-02-26 13:08 | NUR ---
HOURLY ROUNDING. PATIENT NEEDED TO USE THE RESTROOM, HES BEEN MOBLE AND AMBULATING WELL A ONE PERSON ASSIST USING THE FWW. NO REQUEST FROM PATIENT AT THIS TIME. PATIENT REPORT PAIN LEVEL WAS 7 NURSE HAS BEEN NOTIFIED
--- NOTE | 2025-02-26 13:22 | NUR ---
PT IV FELL OUT. DR. BETANCOURT NOTIFIED, NEW ORDER RECEIVED, NO NEW IV ACCESS NEEDED.
--- NOTE | 2025-02-26 14:14 | NUR ---
PT RESTS IN BED, WATCHES TV, VISITOR X1 AT BEDSIDE. OFF LOADING BOOTS IN PLACE TO BLE. CALL LIGHT IN REACH.
--- NOTE | 2025-02-26 14:23 | NUR ---
PT REPORTS C-COLLAR FOAM IS WET AFTER SHOWER. FOAM REMOVED AND HAND WASHED WITH SOAP. IN PROCESS OF AIR DRYING.
--- NOTE | 2025-02-26 15:09 | NUR ---
PT RESTING IN BED WITH EYES CLOSED. RESPIRATIONS EVEN AND UNLABORED. CALL LIGHT WITHIN REACH.
--- NOTE | 2025-02-26 15:53 | NUR ---
CHART SENT TO THERESA NAJERA.
--- NOTE | 2025-02-26 16:31 | NUR ---
PT RESTS IN BED WITH EYES CLOSED, RESP EVEN AND UNLABORED.
--- NOTE | 2025-02-26 17:59 | NUR ---
HOURLY ROUNDING. PATIENT FINISHED DINNER, HE REPORTED PAIN BEIING A SIX. NURSE HAS BEEN NOTIFIED. CALL LIGHT HAS BEEN PLACED WITHIN REACH. WATER CUP HAS BEEN FILLED
--- NOTE | 2025-02-26 18:51 | NUR ---
ASSISTED PT TO BED FROM THE BATHROOM. SCD'S RECONNECTED, HEEL PROTECTORS PLACED BACK ON. PT CALL LIGHT WITHIN REACH. STATES HE IS COMFORTABLE. NO CONCERNS OR FURTHER NEEDS AT THIS TIME.
--- NOTE | 2025-02-26 19:16 | NUR ---
REPORT RECEIVED FROM DAY SHIFT RN. PT LYING IN BED RESTING WITH EYES CLOSED. RESPIRATIONS EVEN. CALL LIGHT IN REACH.
--- NOTE | 2025-02-26 21:49 | NUR ---
EVENING ASSESSMENT COMPLETE. SCHEDULED MEDS ADMIN PER EMAR. PT REPORTS NECK PAIN 03/01. PRN FOR PAIN ADMIN PER EMAR. PT DENIES NAUSEA. VS AND I&O OBTAINED. C-COLLAR IN PLACE. SCD'S/HP IN PLACE. PT DENIES QUESTIONS OR CONCERNS. CALL LIGHT IN REACH. BED ALARM FOR SAFETY.
--- NOTE | 2025-02-26 22:48 | NUR ---
PT RESTING IN BED WITH EYES CLOSED. RESPIRATIONS EVEN. CALL LIGHT IN REACH.
[2025-02-27] VITALS (9 sets, daily range): BP systolic 107–151; BP diastolic 41–55
--- NOTE | 2025-02-27 01:21 | NUR ---
PT UP TO BR WITH FWW AND SBA TO VOID AND ATTEMPT BM WITH NO RESULTS. AT SINK TO WASH HANDS. PT DIAPHORETIC. LINENS/GOWN CHANGED. BACK TO BED, NIDA WELL. ASSISTED TO REPOSITION FOR COMFORT. NO FURTHER NEEDS. CALL LIGHT IN REACH.
--- NOTE | 2025-02-27 03:33 | NUR ---
PT REPORTS NECK PAIN 03/01. PRN FOR PAIN ADMIN PER EMAR. ASSISTED TO REPOSITION FOR COMFORT. FRESH WATER PROVIDED. NO FURTHER NEEDS.
--- NOTE | 2025-02-27 05:37 | NUR ---
PT AWAKE IN BED. SCHEDULED MEDS ADMIN PER EMAR. NO NEEDS AT THIS TIME. BED ALARM FOR SAFETY. CALL LIGHT IN REACH.
--- NOTE | 2025-02-27 07:02 | NUR ---
VERBAL REPORT RECEIVED FROM KARISSA GARIBAY. PT RESTS IN BED WITH EYES CLOSED, RESP EVEN AND UNLABORED.
--- NOTE | 2025-02-27 09:46 | NUR ---
HOURLY ROUNDING. PATIENT JUST FINISHED EATING BREAKFEAST AND WORKING WITH PT. PATIENT IS NOW SITTING IN RECLINER CHAIR [facility]. BOARDHAS BEEN UPDATED AND CALL LIGHT HAS BEEN PLACED WITHIN REACH. LINENS HAS BEEN CHANGED-KISHAN PATIENT ROOM
--- NOTE | 2025-02-27 09:51 | NUR ---
UP IN RECLINER. NO ACCEPTANCE TO SNF YET. JULIO DID CONFIRM THAT THEY RECEIVED HIS CHART AND WILL REVIEW.
--- NOTE | 2025-02-27 13:10 | NUR ---
PT SITS UP IN RECLINER, EATS LUNCH, VISITORS X2 IN ROOM. CALL LIGHT IN REACH. NO REQUESTS AT THIS TIME.
--- NOTE | 2025-02-27 13:42 | NUR ---
RECEIVED CALL FROM YUSRA AT [facility]. STATES THEY CAN ACCEPT PATIENT TOMORROW FOR SNF PLACEMENT. CALLED DAWOOD, BROTHER, UPDATED THAT PATIENT CAN BE ACCEPTED TOMORROW AND ASKED IF TRANSPORTATION NEEDS TO BE SET UP FOR PATIENT OR IF FAMILY CAN TRANSPORT HIM. STATES HE WILL CALL HIS SISTERS AND ASK THEM IF THEY ARE ABLE.
--- NOTE | 2025-02-27 13:46 | NUR ---
HOURLY ROUNDING. PATIENT IS SITTING IN RECLINER, FAMILY IS AT BEDSIDE. NO REQUEST FROM PATIENT AT THIS TIME. CALL LIGHT PLACED WITHIN REACH
--- NOTE | 2025-02-27 14:06 | NUR ---
PT BACK TO BED FOR XRAY. CALL LIGHT IN REACH.
--- NOTE | 2025-02-27 15:28 | NUR ---
ASSISTED PT BACK TO BED FROM THE RESTROOM. PT AMBULATES WITH FWW WITHOUT COMPLICATION. HE IS SITUATED INTO BED. FAMILY MEMBER IN THE ROOM. NOTED PT PASSED A SOLID, LARGE BM. EMPTIED 250 ML FROM URINAL. REFRESHED PT'S ICE WATER. DENIES ANY FURTHER NEEDS AT THIS TIME.
[2025-02-27] MEDS ORDERED: METOPROLOL SUCC50 MG PO (16:06)
[2025-02-27] MEDS ORDERED: OXYCODONE HCL5 M1 PO (16:07)
--- NOTE | 2025-02-27 16:25 | NUR ---
CALLED AND SPOKE WITH [employer], SISTER. NO KNOWN TRANSPORT AT THIS TIME. STATES SHE WILL CALL IN THE MORNING WITH TRANSPORTATION ARRANGEMENTS. DID SPEAK WITH PATIENT ABOUT [facility]. IMM LETTER DISCUSSED WITH PATIENT AND HE SIGNED. FAMILY MEMBER PRESENT IN ROOM AT THIS TIME WELL. ORDERS AND PASRR FAXED TO [facility].
--- NOTE | 2025-02-27 19:09 | NUR ---
REPORT RECEIVED FROM DAY SHIFT RN. PT LYING IN BED ALERT AND ORIENTED. DENIES NEEDS. WHITE BOARD UPDATED. CALL LIGHT IN REACH.
--- NOTE | 2025-02-27 21:47 | NUR ---
PT SITTING IN RECLINER. SBA WITH FWW BACK TO BED, NIDA WELL. EVENING ASSESSMENT COMPLETE. SCHEDULED MEDS ADMIN PER EMAR. PT REPORTS NECK PAIN 03/01. PRN FOR PAIN ADMIN PER EMAR. BLE SCD'S AND HEEL PROTECTORS IN PLACE. VS AND I&O OBTAINED. PT DENIES QUESTIONS OR CONCERNS. CALL LIGHT IN REACH. BED ALARM FOR SAFETY.
--- NOTE | 2025-02-27 23:20 | NUR ---
PT RESTING IN BED WITH EYES CLOSED. RESPIRATIONS EVEN. CALL LIGHT IN REACH. BED ALARM FOR SAFETY.
--- NOTE | 2025-02-28 01:03 | NUR ---
PT LYING IN BED RESTING WITH EYES CLOSED. RESPIRATIONS EVEN. URINAL EMPTIED. CALL LIGHT IN REACH. BED ALARM FOR SAFETY.
--- NOTE | 2025-02-28 03:05 | NUR ---
PT AWAKE IN BED. SBA WITH FWW TO RECLINER WITH C-COLLAR IN PLACE. BLE ELEVATED. CHAIR ALARM IN PLACE. NO FURTHER NEEDS. CALL LIGHT IN REACH.
--- NOTE | 2025-02-28 03:57 | NUR ---
pt assisted from bathroom to bed, sba with fww, c-collar remains in place. bed alarm resumed and call light in reach. pt reports small bm and unmeasured void. no additional needs or concerns verbalized.
[2025-02-28 06:06] VITALS: BP 124/43
[2025-02-28 06:08] VITALS: BP 124/43
--- NOTE | 2025-02-28 06:22 | NUR ---
PT REPORTS NECK PAIN 03/01. PRN FOR PAIN ADMIN PER EMAR. SCHEDULED MEDS GIVEN. VS AND I&O OBTAINED. NO NEEDS AT THIS TIME. CALL LIGHT IN REACH.
--- NOTE | 2025-02-28 07:20 | NUR ---
RECEIVED CALL FROM YUSRA AT [facility]. PATIENT WAS PREVIOUSLY ADMITTED AND LEFT AMA WITHIN 2 HOURS OF ADMISSTION. SPOKE WITH PATIENT AND DISCUSSED HIS NEED TO STAY IN FACILITY AND NOT SIGN OUT IMMEDIATELY AFTER ADMISSION. STATES HE WILL STAY, AFTER HE WAS REMINDED THAT HE LAID ON THE FLOOR FOR A LONG PERIOD OF TIME AFTER GOING HOME DUE TO HIS WEAKNESS. UPDATED YUSRA THAT PATIENT HAS AGREED NOT TO LEAVE FACILITY AMA. STATES SHE WILL CALL BACK AFTER THEIR MORNING MEETING REGARDING PATIENT.
--- NOTE | 2025-02-28 07:29 | NUR ---
RECEIVED REPORT FROM NARCISO VASQUEZ. PT RESTING IN BED AT THIS TIME WITH CCOLLAR IN PLACE. PT WATCHING TV, DENIES ANY NEEDS AT THIS TIME. CALL LIGHT WITHIN REACH.
--- NOTE | 2025-02-28 07:42 | NUR ---
DAWOOD CALLED THIS AM. INFORMED HIM [facility] IS NOW UNSURE IF THEY CAN ACCEPT PATIENT. HE STATES IF THEY CAN, HIS SISTER SONYA CAN DRIVE PATIENT TODAY OR HE CAN DRIVE HIM TOMORROW. INFORMED WILL CALL TO UPDATE HIM AFTER 9
[2025-02-28 08:28] VITALS: BP 123/46
[2025-02-28 08:38] VITALS: BP 123/46
--- NOTE | 2025-02-28 08:55 | NUR ---
PT RESTING IN BED, COMPLETED WITH BREAKFAST THIS MORNING, GOOD APPETITE. PT STATES STILL HAS 7/10 PAIN DESPITE JUST GETTING THE OXYCODONE, STATES THE PAIN IS IN HIS BILATERALY FEET. CCOLLAR IN PLACE. PT IS VERY CERTAIN HE DOES NOT WANT TO GO TO [place] AT THIS TIME, WOULD REALLY LIKE TO DISCHARGE HOME. STATES HE HAS HAD SOMEONE TAKE HIS MONEY AND CONCERNED MORE ABOUT THIS THINGS GOING ON AT HOME. PT TO ME IS UNAWARE OF HIS SAFETY NEEDS AT HOME, BUT STATES THAT HIS BABS BUSHES GOT CUT AND CLEANED UP AND HE IS NOW SAFE TO GO HOME. CASE MGMT/MD WILL BE UPDATED ON CONVO. ALL PT CARE NEEDS MET AT THIS TIME. VS STABLE, DOCUMENTED. FRESH ICE WATER PROVIDED, DENIES ANY OTHER NEEDS AT THIS TIME. CALL LIGHT WITHIN REACH.
--- NOTE | 2025-02-28 09:27 | NUR ---
HOURLY ROUNDING. PATIENT REPORTS WANTING TO GO HOME, HE SEEMS TO BE IN A MOOD SLIGHTLY UPSET. NO REQUEST FROM PATIENT URINAL HAS BEEN EMPTIED AND AM HAS BEEN COMPLETED. BOARD HAS BEEN UPDATED AND ROOM TIDY.
[2025-02-28 09:28] VITALS: BP 136/52
--- NOTE | 2025-02-28 10:05 | NUR ---
SPOKE WITH YUSRA AT [facility]. THEY ARE ABLE TO ACCEPT PATIENT TODAY. CALLED DAWOOD, BROTHER, HE IS GOING TO CALL SONYA, SISTER TO SEE IF SHE IS STILL ABLE TO TRANSPORT PATIENT TODAY.
--- NOTE | 2025-02-28 10:15 | NUR ---
PATIENT'S SISTER, PAT, CALLS AND STATES SHE WILL BE TO FACILITY TO PICK PATIET UP IN 40 MINUTES, STAFF AND DR. BETANCOURT NOTIFIED.
--- NOTE | 2025-02-28 10:41 | NUR ---
PATIENT NOW STATES HE DOES NOT WANT TO GO TO SNF. GRANDDAUGHTER FUENTES AWARE. PATIENT STATES HE IS GOING TO CALL HIS BROTHER DAWOOD AND SISTER SONYA. CALLED AND NOTIFIED YUSRA AT [facility]. REFERRAL FOR HOME HEALTH SENT TO [facility]. CALLED AND LEFT MESSAGE WITH PALMER AT [facility] REGARDING FOLLOW-UP.
--- NOTE | 2025-02-28 10:56 | NUR ---
HOURLY ROUNDING. PATIENT NEEDED TO USE THE RESTROOM, ASSISTED PATIENT TO THE BATHROOM A STAND BY ASSIST. PATIENT IS NOW BACK IN RECLINER CHAIR. PHARMACY IS NOW HERE TO TALK TO PATIENT. CALL LIGHT HAS BEEN PLACED WITHIN REACH
[2025-02-28 11:00] VITALS: BP 160/83
--- NOTE | 2025-02-28 11:07 | NUR ---
Medication education at discharge. Patient given printed RX for oxycodone and metoprolol succ. Education on medications given. Patient verbalizes understanding of all information
--- NOTE | 2025-02-28 12:26 | NUR ---
DISCHARGE-PATIENT BROTHER DAWOOD SHOWED UP TO TIRE TECHNICIAN THE PATIENT FOR DISCHARGE. HEADING TO THE FRONT OF THE HOSPITAL WE NOTICED HIS BROTHER WAS NOWHERE TO BE FOUND. PATIENT CALLED HIS BROTHER AND HIS SISTER AND THEY NOTIFIED HIM SINCE HE IS NOT BEING DISCHARGED TO THE FACILITY THEY WILL NOT BE SUPPORTING HIM. I CAME BACK TO THE NURSE STATION AND CALLED A TAXI. CASH SURRENDER CALCULATOR SIGNED OFF ON TAXI TICKET. PATIENT WAS THEN PICKED UP BY THE TAXI. PATIENT CALLED HIS GRANDDAUGHTER TO MEET HIM AT HIS HOUSE TO HELP HIM GETTING OUT THE TAXI. PATIENT APPEARS A BIT SLOW DUE TO THE NECK BRACE, DRIVER/MERCHANDISER WAS CONCERNED. PATIENT ASSURED THE EMPLOYEE COUNSELOR THAT HIS GRANDDAUGHTER WILL BE THERE TO HELP ASSIST HIM. BAGS AND PRSCRPTIONS OF PATIENT HAS BEEN ALL PACKED AND PLACED IN THE TAXI WITH HIM. NURSE HAS BEEN NOTIFIED OF ALL DISCHARGE ACTIVITIES.
== END 2025-02-28 11:10 | disposition home or self-care (01) | DRG 83 ==
LOC: ED 11:49 → MS 15:16 → CCU 02-21 15:23 → MS 02-23 12:50
PROVIDERS: Emergency Medicine; ADMIT Student in an Organized Health Care Education/Training Program; ATTEND Student in an Organized Health Care Education/Training Program
DX: S06.5XAA Traumatic subdural hemorrhage with loss of consciousness status unknown, initial encounter (principal); E87.0 Hyperosmolality and hypernatremia; S12.290A Other displaced fracture of third cervical vertebra, initial encounter for closed fracture; S12.390A Other displaced fracture of fourth cervical vertebra, initial encounter for closed fracture; E11.9 Type 2 diabetes mellitus without complications; R44.1 Visual hallucinations; M19.90 Unspecified osteoarthritis, unspecified site; E03.9 Hypothyroidism, unspecified; I10 Essential (primary) hypertension; F03.90 Unspecified dementia, unspecified severity, without behavioral disturbance, psychotic disturbance, mood disturbance, and anxiety; Z96.643 Presence of artificial hip joint, bilateral; M45.9 Ankylosing spondylitis of unspecified sites in spine; R62.7 Adult failure to thrive; L89.159 Pressure ulcer of sacral region, unspecified stage; G40.909 Epilepsy, unspecified, not intractable, without status epilepticus; R29.6 Repeated falls; F12.90 Cannabis use, unspecified, uncomplicated; E78.5 Hyperlipidemia, unspecified; I48.91 Unspecified atrial fibrillation; Z91.148 Patient's other noncompliance with medication regimen for other reason; Z87.891 Personal history of nicotine dependence; Z88.5 Allergy status to narcotic agent; Z88.8 Allergy status to other drugs, medicaments and biological substances; Z88.0 Allergy status to penicillin; Z88.2 Allergy status to sulfonamides; E04.1 Nontoxic single thyroid nodule; M25.561 Pain in right knee; Z90.49 Acquired absence of other specified parts of digestive tract; Z87.19 Personal history of other diseases of the digestive system; Z86.73 Personal history of transient ischemic attack (TIA), and cerebral infarction without residual deficits; Z79.890 Hormone replacement therapy; Z79.01 Long term (current) use of anticoagulants; Z68.22 Body mass index [BMI] 22.0-22.9, adult; X58.XXXA Exposure to other specified factors, initial encounter
CPT/HCPCS: 36415; 51798; 70450; 71045; 72125; 73502; 73560; 76536; 80048; 80053; 80307; 81001; 82550; 83735; 84100; 84439; 84443; 84481; 84484; 85025; 87040; 92507; 92523; 93005; 93010; 97110; 97162; 97530; 97535; 99285-25; A9270; G0480; J1953; J3475; J7030; J7070; J7131

== ENCOUNTER 2025-07-13 10:44 | Emergency (ER) | payer MEDICARE, OTHER ==
[~2025-07-13] VITALS: Ht 175.3 cm; Wt 92.5 kg
[~2025-07-13 10:44] MED LIST changes: +DOK100 M1 PO; +HEALTHYLAX17 GM PO; +LEVETIRACETAM750 MG PO; +LINEZOLID600 MG PO; +METOPROLOL TART25 MG; +METRONIDAZOLE500 MG PO; +OXYCODONE HCL5 M1 PO; +STIMULANT LAXA1 EACH PO; +TRAMADOL HCL50 MG PO
[2025-07-13 11:11] LABS: BASOPHILS 0.4 % (0.2-1.2); EOSINOPHILS 1.7 % (0.8-7.0); LYMPHOCYTES 8.0 % (21.8-53.1); MCH 24.4 PG (25.7-32.2); MCHC 31.8 g/dL (32.3-36.5); MCV 76.6 fL (79.0-92.2); MONOCYTES 6.4 % (5.3-12.2); NEUTROPHILS 83.1 % (34.0-67.9); RBC 5.17 M/uL (4.63-6.08)
[2025-07-13 11:26] LABS: ALCOHOL, MEDICAL <3 ng/dL (<3); ALT (SGPT) 27 U/L (14-59); AST (SGOT) 15 U/L (15-37); GLOMERULAR FILTRATION RATE,EST 70 mL/min (>60); PROTEIN, TOTAL 7.5 g/dL (6.4-8.2); UREA NITROGEN 26 mg/dL (7-18)
[2025-07-13 11:30] LABS: BLOOD/HGB, URINE NEGATIVE (Negative); KETONE, URINE NEGATIVE (Negative); LEUK ESTERASE, URINE NEGATIVE (negative); NITRITE, URINE NEGATIVE (negative)
[2025-07-13 11:42] LABS: BACTERIA, URINE NONE SEEN /hpf (negative); CASTS, URINE NONE SEEN \\lpf; CRYSTALS, URINE NONE SEEN (0-1+); EPITHELIAL CELLS, URINE 0 /lpf (0-1+); REFLEX CULTURE, URINE No (No)
[2025-07-13 11:44] LABS: AMPHETAMINES, URINE NEGATIVE (NEGATIVE); BARBITURATES, URINE NEGATIVE (NEGATIVE); BENZODIAZEPINE, URINE NEGATIVE (NEGATIVE); CANNABINOID, URINE POSITIVE (NEGATIVE); COCAINE, URINE NEGATIVE (NEGATIVE); ECSTASY, URINE NEGATIVE (NEGATIVE); FENTANYL, URINE NEGATIVE (NEGATIVE); METHADONE, URINE NEGATIVE (NEGATIVE); OPIATES, URINE POSITIVE (NEGATIVE); OXYCODONE, URINE NEGATIVE (NEGATIVE); PHENCYCLIDINE, URINE NEGATIVE (NEGATIVE)
[2025-07-13] MEDS ORDERED: KEPPRA750 MG PO (12:44)
[2025-07-13 13:54] VITALS: BP 135/52
== END 2025-07-13 13:50 | disposition home or self-care (01) ==
LOC: ED 10:44
PROVIDERS: Emergency Medicine
DX: R56.9 Unspecified convulsions (principal); Z91.148 Patient's other noncompliance with medication regimen for other reason; I10 Essential (primary) hypertension; E11.9 Type 2 diabetes mellitus without complications; M19.90 Unspecified osteoarthritis, unspecified site; Z88.0 Allergy status to penicillin; Z88.5 Allergy status to narcotic agent; Z88.2 Allergy status to sulfonamides; Z79.899 Other long term (current) drug therapy
CPT/HCPCS: 36415; 80053; 80307; 81001; 85025; 96374; 99284-25; G0480; J1953